=== PATIENT | female | born 1945 | race Caucasian/White ===

== ENCOUNTER 2016-08-01 11:50 | Emergency (ER) | payer MEDICARE, OTHER ==
[~2016-08-01] VITALS: Ht 167.6 cm; Wt 121.1 kg
[~2016-08-01 11:50] MED LIST: AC500T PO; ALPR.25T PO; AMLO5TAB2 PO; ASP325TEC PO; CHLS4PK; CLAR-19 PO; CLON1TAB36; CODE118S2 PO; CPR250T PO; CRESTOR40 MG PO; CRS350T PO; EZET10TA5 PO; FESO4TAB2 PO; FURO-125 PO; FURO40TA4 PO; GUAI120013 PO; HYDR-2890 PO; HYDR-91 PO; HYDR1TAB PO; LEVO500T78 PO; LOPE2CAP29; LOSA100T7 PO; LVF500T; Lotrel; METO2.5T PO; METO25TA2 PO; MTP100TCR; NFNEB10T PO; OLME40TA14 PO; OMEP20CA12 PO; OXYC-465 PO; PARO20TA57 PO; PRAV80TA2 PO; PRD10T PO; PRD20T PO; PROC10TA23; PROP1TAB77; PROVACHOL PO; PRV20T PO; ROSU20TA14 PO; SERT50TA PO; SMV20T PO; SPIR25TA PO; TERA10CA3 PO; TERA5CAP10 PO; TRAZ150T42 PO; TRZ50T PO; TYLENOL #3 PO
[2016-08-01] MEDS ORDERED: ASPIRIN 81 MG CHEW (CHILDREN'S ASA) ONE (12:02)
[2016-08-01 12:25] LABS: BASOPHILS % (AUTO) 0 % (0-10); EOSINOPHILS # (AUTO) 0.2 10^3/uL (0.0-0.3); EOSINOPHILS % (AUTO) 4 % (0-10); LYMPHOCYTES % (AUTO) 15 % (12-44); MEAN CORPUSCULAR HEMOGLOBIN 27 PG (25-34); MEAN CORPUSCULAR HGB CONC 32 G/DL (32-36); MEAN CORPUSCULAR VOLUME 84 FL (80-99); MONOCYTES # (AUTO) 0.6 X 10^3 (0.0-1.0); MONOCYTES % (AUTO) 9 % (0-12); NEUTROPHILS # (AUTO) 4.8 X 10^3 (1.8-7.8); NEUTROPHILS % (AUTO) 72 % (42-75); PLATELET COUNT 219 10^3/uL (130-400); RED BLOOD COUNT 4.62 10^6/uL (4.35-5.85); RED CELL DISTRIBUTION WIDTH 14.5 % (10.0-14.5); WHITE BLOOD COUNT 6.7 10^3/uL (4.3-11.0)
[2016-08-01 12:28] LABS: INR 0.9 (0.8-1.4); PROTHROMBIN TIME PATIENT 11.9 SEC (12.2-14.7)
[2016-08-01] MEDS ORDERED: ASPIRIN 81 MG CHEW (CHILDREN'S ASA) PO ONE (12:30)
--- NOTE | 2016-08-01 12:30 | ED Chest Pain ---
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 The patient is concerned that this is cardiac in origin. Patient has had nausea and dry heaves. She has had no shortness of breath, no palpitations, no radiation of the pressure type epigastric pain. Allergies and Home Medications Allergies Coded Allergies: Iodinated Contrast Media - IV Dye (Unverified Allergy, Mild, NAUSEA, ) Pt states it's the IV dye used in heart tests not CT scans penicillin G (Verified Allergy, Unknown, 04/24/07) RASH Home Medications 1-2 TAB PO Q4H PRN PRN (Reported) Amlodipine Besylate 5 Mg Tablet 5 MG PO HS (Reported) Aspirin 325 Mg Tablet 325 MG PO DAILY (Reported) Carisoprodol 350 Mg Tablet #30 1 TAB PO TID Prescribed by: HARSHAL WILBURN on 04/02/13 1100 Ezetimibe 10 Mg Tablet #30 1 TAB PO DAILY (Reported) Furosemide 20 Mg Tablet #10 20 MG PO DAILY Prescribed by: SHEILA NARAYANAN on 10/13/15 1528 Hydrocodone Bit/Acetaminophen 1 Each Tablet #30 1 EACH PO Q6H Prescribed by: HARSHAL WILBURN on 04/02/13 1100 Hydrocodone Bit/Acetaminophen 1 Each Tablet #20 1 EACH PO Q6H PRN PRN Prescribed by: JOSE POTTER on 04/06/13 075 Losartan Potassium 100 Mg Tablet 100 MG PO DAILY (Reported) Metolazone 2.5 Mg Tablet #10 2.5 MG PO DAILY Prescribed by: SHEILA NARAYANAN on 10/13/15 152 Metoprolol Tartrate 25 Mg Tablet 25 MG PO BID (Reported) Omeprazole 20 Mg Capsule.dr 20 MG PO DAILY (Reported) Paroxetine Hcl 20 Mg Tablet 20 MG PO HS (Reported) Prednisone 20 Mg Tab 6Days 40 MG PO DAILY Prescribed by: JOSE POTTER on 04/06/13 075 Rosuvastatin Calcium 40 Mg Tablet 40 MG PO DAILY (Reported) Sertraline Hcl 50 Mg Tablet 50 MG PO DAILY (Reported) Terazosin Hcl 10 Mg Capsule 5 MG PO DAILY (Reported) Trazodone Hcl 50 Mg Tab 50 MG PO HS (Reported) Review of Systems Constitutional: No chills, No fever, malaise EENTM: No Blurred Vision Respiratory: Denies Cough Cardiovascular: See HPI Chest Pain Gastrointestinal: See HPI Abdominal PainDenies Diarrhea, NauseaDenies Vomiting Genitourinary: Denies Drainage, Denies Frequency Musculoskeletal: No back pain Skin: rash (patient has a chronic intertriginous rash.) Psychiatric/Neurological: No Symptoms Reported Endocrine: No Symptoms Reported Hematologic/Lymphatic: No Symptoms Reported Past Lspgrvx-Rjgzjo-Hkhbjy Hx Patient Social History Alcohol Use: Denies Use Recreational Drug Use: No Smoking Status: Never a Smoker Former Smoker/When Quit: Sep 07, 1990 Recent Foreign Travel: No Contact w/Someone Who Travel: No Recent Infectious Disease Expo: No Recent Hopitalizations: Yes Physical Abuse Screen: No Sexual Abuse: No Immunizations Up To Date Date of Pneumonia Vaccine: Sep 07, 2008 Date of Influenza Vaccine: May 26, 2016 Surgeries HX Surgeries: Yes (HERNIA REP) Surgeries: Eye Surgery, Gallbladder, Orthopedic Respiratory Hx Respiratory Disorders: Yes (sleep apnea no cpap) Respiratory Disorders: Sleep Apnea Cardiovascular Hx Cardiac Disorders: Yes Cardiac Disorders: High Cholesterol, Hypertension Neurological Hx Neurological Disorders: No Reproductive System Hx Reproductive Disorders: No Genitourinary Hx Genitourinary Disorders: Yes (CYSTOCELE) Gastrointestinal Hx Gastrointestinal Disorders: Yes Gastrointestinal Disorders: Gastroesophageal Reflux Musculoskeletal Hx Musculoskeletal Disorders: No Endocrine Hx Endocrine Disorders: No HEENT HX ENT Disorders: No Cancer Hx Cancer: No Psychosocial Hx Psychiatric Problems: Yes Behavioral Health Disorders: Anxiety, Depression Integumentary HX Skin/Integumentary Disorder: No Blood Transfusions Hx Blood Disorders: No Reviewed Nursing Assessment Reviewed/Agree w Nursing PMH: Yes Family Medical History Significant Family History: No Pertinent Family Hx Physical Exam Vital Signs Vital Sign - Last 12Hours 08/01/16 11:52 Temp 98.0 Pulse 59 Resp 20 B/P 178/84 Pulse Ox 95 O2 Delivery Room Air Capillary Refill : Less Than 3 Seconds General Appearance: No Apparent Distress WD/WN HEENT: Normal ENT Inspection Neck: Normal Inspection Respiratory: Lungs Clear Normal Breath Sounds Cardiovascular: Regular Rate, Rhythm No Murmur Gastrointestinal: Normal Bowel SoundsNo Distended, Other (moderate epigastric tenderness.) Extremity: Normal Inspection Normal Range of Motion Neurologic/Psychiatric: Oriented x3 No Motor/Sensory Deficits Normal Mood/ Affect Skin: Normal Color Warm/Dry Progress/Results/Core Measures Results/Orders Lab Results Laboratory Tests Test 08/01/16 12:04 Range/Units Activated Partial Thromboplast Time 26 24-35 SEC Alanine Aminotransferase (ALT/SGPT) 11 0-55 U/L Albumin 3.8 3.2-4.5 G/DL Alkaline Phosphatase 75 40-136 U/L Anion Gap 10 5-14 MMOL/L Aspartate Amino Transf (AST/SGOT) 20 5-34 U/L BUN/Creatinine Ratio 14 Basophils # (Auto) 0.0 0.0-0.1 10^3/uL Basophils (%) (Auto) 0 0-10 % Blood Urea Nitrogen 11 7-18 MG/DL Calcium Level 8.8 8.5-10.1 MG/DL Carbon Dioxide Level 23 21-32 MMOL/L Chloride Level 106 98-107 MMOL/L Creatinine 0.78 0.60-1.30 MG/DL Eosinophils # (Auto) 0.2 0.0-0.3 10^3/uL Eosinophils (%) (Auto) 4 0-10 % Estimat Glomerular Filtration Rate > 60 Glucose Level 103 70-105 MG/DL Hematocrit 39 35-52 % Hemoglobin 12.4 11.5-16.0 G/DL INR Comment 0.9 0.8-1.4 Lymphocytes # (Auto) 1.0 1.0-4.0 X 10^3 Lymphocytes (%) (Auto) 15 12-44 % Magnesium Level 2.0 1.8-2.4 MG/DL Mean Corpuscular Hemoglobin 27 25-34 PG Mean Corpuscular Hemoglobin Concent 32 32-36 G/DL Mean Corpuscular Volume 84 80-99 FL Mean Platelet Volume 11.0 H 7.4-10.4 FL Monocytes # (Auto) 0.6 0.0-1.0 X 10^3 Monocytes (%) (Auto) 9 0-12 % Myoglobin 33.9 10.0-92.0 NG/ML Neutrophils # (Auto) 4.8 1.8-7.8 X 10^3 Neutrophils (%) (Auto) 72 42-75 % Platelet Count 219 130-400 10^3/uL Potassium Level 4.4 3.6-5.0 MMOL/L Prothrombin Time 11.9 L 12.2-14.7 SEC Red Blood Count 4.62 4.35-5.85 10^6/uL Red Cell Distribution Width 14.5 10.0-14.5 % Sodium Level 139 135-145 MMOL/L Total Bilirubin 0.4 0.1-1.0 MG/DL Total Protein 6.6 6.4-8.2 G/DL Troponin I < 0.30 <0.30 NG/ML White Blood Count 6.7 4.3-11.0 10^3/uL My Orders Orders-RICK WILLSON MD Aspirin Chewable Tablet (Baby Aspirin Ch (08/01/16 12:02) Cbc With Automated Diff (08/01/16 12:18) Magnesium (08/01/16 12:18) Chest 1 View, Ap/Pa Only (08/01/16 12:18) Ekg Tracing (08/01/16 12:18) Cardiac Profile 1 (08/01/16 12:18) Comprehensive Metabolic Panel (08/01/16 12:18) Myoglobin Serum (08/01/16 12:18) Protime With Inr (08/01/16 12:18) Partial Thromboplastin Time (08/01/16 12:18) O2 (08/01/16 12:18) Monitor-Rhythm Ecg Trace Only (08/01/16 12:18) Lipid Panel (08/02/16 06:00) Aspirin Chewable Tablet (Baby Aspirin Ch (08/01/16 12:30) Saline Lock/Iv-Start (08/01/16 12:18) Medications Given in ED Current Medications Medications Dose Ordered Sig/Dominique Route Start Time Stop Time Status Last Admin Dose Admin Aspirin 324 mg ONCE ONCE PO 08/01/16 12:30 08/01/16 12:31 DC 08/01/16 12:02 324 MG Vital Signs/I&O Vital Sign - Last 12Hours 08/01/16 08/01/16 11:52 11:52 Temp 98.0 Pulse 59 Resp 20 B/P 178/84 Pulse Ox 95 95 O2 Delivery Room Air Room Air Blood Pressure Mean: 115 Progress Note : Time: 14:08 Progress Note The patient's laboratory evaluation was unremarkable. Her chest x-ray failed to demonstrate evidence of an acute infiltrate. The patient demonstrated a normal sinus rhythm on EKG. No change was noted from the patient's previous electrocardiogram. The patient wanted to go home. She understands that a repeat troponin 4 hours is indicated that it is her desire to leave at this time. 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 She understands that she can return to emergency department at any time. On further history taking the patient states that her pressure type chest pain she felt was really more of a sensation of being queasy. Patient declined any medication for treatment of her symptoms. Departure Impression Impression: Primary Impression: Chest pain Qualified Code: R07.9 - Chest pain, unspecified Disposition: Condition: Against Medical Advice Departure-Patient Inst. Decision time for Depature: 14:10 Referrals: BIBIANA KAPADIA MD (PCP/Family) Primary Care Physician Patient Instructions: Chest Pain (DC) Add. Discharge Instructions: Please follow up here cement or concrete finishing supervisor as soon as possible. Please return to the emergency department if he have any further problems or questions. All discharge instructions reviewed with patient and/or family. Voiced understanding. RICK WILLSON MD Aug 01, 2016 12:30
[2016-08-01 12:37] LABS: ALANINE AMINOTRANSFERASE 11 U/L (0-55); ALBUMIN 3.8 G/DL (3.2-4.5); ANION GAP 10 MMOL/L (5-14); ASPARTATE AMINO TRANSFERASE 20 U/L (5-34); BILIRUBIN,TOTAL 0.4 MG/DL (0.1-1.0); BLOOD UREA NITROGEN 11 MG/DL (7-18); BUN/CREATININE RATIO 14; CALCIUM 8.8 MG/DL (8.5-10.1); CARBON DIOXIDE 23 MMOL/L (21-32); CHLORIDE 106 MMOL/L (98-107); CREATININE SERUM 0.78 MG/DL (0.60-1.30); GFR ESTIMATED > 60; GLUCOSE 103 MG/DL (70-105); POTASSIUM 4.4 MMOL/L (3.6-5.0); SODIUM 139 MMOL/L (135-145); TOTAL PROTEIN 6.6 G/DL (6.4-8.2)
[2016-08-01 12:44] LABS: MYOGLOBIN SERUM 33.9 NG/ML (10.0-92.0)
--- NOTE | 2016-08-01 13:12 | Diagnostic Imaging Report ---
INDICATION: Anterior chest wall pain. FINDINGS: Sternal wires project midline and intact. Heart size within the upper limits of normal unchanged. The hilar and mediastinal contours unchanged. Air trapping and COPD stable. IMPRESSION: Stable chronic findings. Dictated by: Dictated on workstation # [id number]
[2016-08-01 14:20] VITALS: BP 150/70
== END 2016-08-01 14:24 | disposition home or self-care (01) ==
LOC: EDUNIT# 11:50 → ER 11:52
DX: R07.89 Other chest pain (principal); R11.0 Nausea; I10 Essential (primary) hypertension; Z79.82 Long term (current) use of aspirin; Z79.899 Other long term (current) drug therapy
CPT/HCPCS: 36415; 71010; 80053; 83735; 83874; 84484; 85025; 85610; 85730; 93005; 93041

== ENCOUNTER 2016-08-25 08:21 | Day surgery (SDC) | payer MEDICARE, OTHER ==
[~2016-08-25] VITALS: Ht 165.1 cm; Wt 90.0 kg
[2016-08-25] VITALS (9 sets, daily range): BP systolic 139–193; BP diastolic 67–97
--- NOTE | 2016-08-25 08:53 | ED Chest Pain ---
General Stated Complaint: CHEST PRESSURE/SOA Source: patient, RN notes reviewed Exam Limitations: no limitations History of Present Illness Time seen by provider: 08:52 Initial Comments As above. Timing/Duration: intermittent, other (X 2 WEEKS ) Severity/Quality: pressure Location: substernal Radiation: no radiation Activities at Onset: none, rest Prior CP/Workup: cardiac cath, cardiolye scan, echocardiography, stress test, other ((+) CABG) Modifying Factors: improves with other ASA po LINING CLOSER: No NTG SL LINING CLOSER: No Associated Symptoms: shortness of breath Allergies and Home Medications Allergies Coded Allergies: Iodinated Contrast Media - IV Dye (Unverified Allergy, Mild, NAUSEA, ) Pt states it's the IV dye used in heart tests not CT scans penicillin G (Verified Allergy, Unknown, 04/24/07) RASH Home Medications 1-2 TAB PO Q4H PRN PRN (Reported) Amlodipine Besylate 5 Mg Tablet 5 MG PO HS (Reported) Aspirin 325 Mg Tablet 325 MG PO DAILY (Reported) Carisoprodol 350 Mg Tablet #30 1 TAB PO TID Prescribed by: HARSHAL WILBURN on 04/02/13 1100 Ezetimibe 10 Mg Tablet #30 1 TAB PO DAILY (Reported) Furosemide 20 Mg Tablet #10 20 MG PO DAILY Prescribed by: SHEILA NARAYANAN on 10/13/15 1528 Hydrocodone Bit/Acetaminophen 1 Each Tablet #30 1 EACH PO Q6H Prescribed by: HARSHAL WILBURN on 04/02/13 1100 Hydrocodone Bit/Acetaminophen 1 Each Tablet #20 1 EACH PO Q6H PRN PRN Prescribed by: JOSE POTTER on 04/06/13 075 Losartan Potassium 100 Mg Tablet 100 MG PO DAILY (Reported) Metolazone 2.5 Mg Tablet #10 2.5 MG PO DAILY Prescribed by: SHEILA NARAYANAN on 10/13/15 1528 Metoprolol Tartrate 25 Mg Tablet 25 MG PO BID (Reported) Omeprazole 20 Mg Capsule.dr 20 MG PO DAILY (Reported) Paroxetine Hcl 20 Mg Tablet 20 MG PO HS (Reported) Prednisone 20 Mg Tab 6Days 40 MG PO DAILY Prescribed by: JOSE POTTER on 04/06/13 075 Rosuvastatin Calcium 40 Mg Tablet 40 MG PO DAILY (Reported) Sertraline Hcl 50 Mg Tablet 50 MG PO DAILY (Reported) Terazosin Hcl 10 Mg Capsule 5 MG PO DAILY (Reported) Trazodone Hcl 50 Mg Tab 50 MG PO HS (Reported) Review of Systems Constitutional: see HPI Respiratory: See HPI SOA at Rest Cardiovascular: See HPI Chest Pain All Other Systems Reviewed Negative Unless Noted: Yes (Negative excepted noted.) Past Ivrfvuw-Dwlfrj-Zrtosh Hx Patient Social History Former Smoker/When Quit: Sep 07, 1990 Recent Foreign Travel: No Contact w/Someone Who Travel: No Recent Hopitalizations: Yes Immunizations Up To Date Date of Pneumonia Vaccine: Sep 07, 2008 Date of Influenza Vaccine: May 26, 2016 Surgeries HX Surgeries: Yes (HERNIA REP) Surgeries: Eye Surgery, Gallbladder, Orthopedic Respiratory Hx Respiratory Disorders: Yes (sleep apnea no cpap) Respiratory Disorders: Sleep Apnea Cardiovascular Hx Cardiac Disorders: Yes Cardiac Disorders: High Cholesterol, Hypertension Neurological Hx Neurological Disorders: No Reproductive System Hx Reproductive Disorders: No Genitourinary Hx Genitourinary Disorders: Yes (CYSTOCELE) Gastrointestinal Hx Gastrointestinal Disorders: Yes Gastrointestinal Disorders: Gastroesophageal Reflux Musculoskeletal Hx Musculoskeletal Disorders: No Endocrine Hx Endocrine Disorders: No HEENT HX ENT Disorders: No Cancer Hx Cancer: No Psychosocial Hx Psychiatric Problems: Yes Behavioral Health Disorders: Anxiety, Depression Integumentary HX Skin/Integumentary Disorder: No Blood Transfusions Hx Blood Disorders: No Family Medical History Significant Family History: No Pertinent Family Hx Physical Exam Vital Signs Vital Sign - Last 12Hours 08/25/16 08:25 Temp 98.1 Pulse 84 Resp 18 B/P 190/94 Pulse Ox 95 O2 Delivery Room Air Capillary Refill : General Appearance: No Apparent Distress WD/WN Obese Respiratory: Lungs Clear No Respiratory Distress Cardiovascular: Regular Rate, Rhythm Gastrointestinal: Other (obese) Rectal: Deferred Neurologic/Psychiatric: Alert Oriented x3 No Motor/Sensory Deficits Depressed Affect Skin: Warm/Dry Progress/Results/Core Measures Results/Orders Lab Results Laboratory Tests Test 08/25/16 08:50 08/25/16 10:05 Range/Units Alanine Aminotransferase (ALT/SGPT) 10 0-55 U/L Albumin 3.8 3.2-4.5 G/DL Alkaline Phosphatase 78 40-136 U/L Anion Gap 11 5-14 MMOL/L Aspartate Amino Transf (AST/SGOT) 18 5-34 U/L B-Type Natriuretic Peptide 102.4 H <100.0 PG/ML BUN/Creatinine Ratio 19 Basophils # (Auto) 0.0 0.0-0.1 10^3/uL Basophils (%) (Auto) 1 0-10 % Blood Urea Nitrogen 15 7-18 MG/DL Calcium Level 8.5 8.5-10.1 MG/DL Carbon Dioxide Level 24 21-32 MMOL/L Chloride Level 109 H 98-107 MMOL/L Creatinine 0.81 0.60-1.30 MG/DL Eosinophils # (Auto) 0.2 0.0-0.3 10^3/uL Eosinophils (%) (Auto) 4 0-10 % Estimat Glomerular Filtration Rate > 60 Glucose Level 116 H 70-105 MG/DL Hematocrit 39 35-52 % Hemoglobin 12.6 11.5-16.0 G/DL Lipase 32 8-78 U/L Lymphocytes # (Auto) 0.9 L 1.0-4.0 X 10^3 Lymphocytes (%) (Auto) 18 12-44 % Magnesium Level 1.9 1.8-2.4 MG/DL Mean Corpuscular Hemoglobin 27 25-34 PG Mean Corpuscular Hemoglobin Concent 32 32-36 G/DL Mean Corpuscular Volume 84 80-99 FL Mean Platelet Volume 10.8 H 7.4-10.4 FL Monocytes # (Auto) 0.4 0.0-1.0 X 10^3 Monocytes (%) (Auto) 7 0-12 % Neutrophils # (Auto) 3.7 1.8-7.8 X 10^3 Neutrophils (%) (Auto) 70 42-75 % Platelet Count 234 130-400 10^3/uL Potassium Level 4.2 3.6-5.0 MMOL/L Red Blood Count 4.68 4.35-5.85 10^6/uL Red Cell Distribution Width 14.9 H 10.0-14.5 % Sodium Level 144 135-145 MMOL/L Total Bilirubin 0.4 0.1-1.0 MG/DL Total Protein 6.6 6.4-8.2 G/DL Troponin I < 0.30 <0.30 NG/ML White Blood Count 5.3 4.3-11.0 10^3/uL Urine Bacteria NEGATIVE /HPF Urine Bilirubin NEGATIVE NEGATIVE Urine Casts NONE /LPF Urine Clarity CLEAR Urine Color YELLOW Urine Crystals NONE /LPF Urine Culture Indicated NO Urine Glucose (UA) NEGATIVE NEGATIVE Urine Ketones NEGATIVE NEGATIVE Urine Leukocyte Esterase NEGATIVE NEGATIVE Urine Mucus NEGATIVE /LPF Urine Nitrite NEGATIVE NEGATIVE Urine Protein NEGATIVE NEGATIVE Urine RBC NONE /HPF Urine RBC (Auto) NEGATIVE NEGATIVE Urine Specific [place] 1.010 L 1.016-1.022 Urine Squamous Epithelial Cells TNTC H /HPF Urine Urobilinogen NORMAL NORMAL MG/DL Urine WBC NONE /HPF Urine pH 7 5-9 My Orders Orders-RUPERT LAWLER DO Saline Lock/Iv-Start (08/25/16 08:53) Ekg Tracing (08/25/16 08:53) BNP (08/25/16 08:53) Cbc With Automated Diff (08/25/16 08:53) Comprehensive Metabolic Panel (08/25/16 08:53) Lipase (08/25/16 08:53) Magnesium (08/25/16 08:53) Troponin I (08/25/16 08:53) Ua Culture If Indicated (08/25/16 08:53) Chest 1 View, Ap/Pa Only (08/25/16 08:53) Vital Signs/I&O Vital Sign - Last 12Hours 08/25/16 08:25 Temp 98.1 Pulse 84 Resp 18 B/P 190/94 Pulse Ox 95 O2 Delivery Room Air Departure Communication Time/Spoke to Admitting Phy: 11:10 Impression Impression: Primary Impression: Chest pain Additional Impression: S/P CABG (coronary artery bypass graft) Disposition: 09 ADMITTED INPATIENT Condition: Stable Decision to Admit Reason: Admit from ER (General) Decision to Admit/Date: Aug 25, 2016 Time/Decision to Admit Time: 11:10 Departure-Patient Inst. Referrals: BIBIANA KAPADIA MD (PCP/Family) Primary Care Physician RUPERT LAWLER DO Aug 25, 2016 08:53
[2016-08-25 09:03] LABS: BASOPHILS % (AUTO) 1 % (0-10); EOSINOPHILS # (AUTO) 0.2 10^3/uL (0.0-0.3); EOSINOPHILS % (AUTO) 4 % (0-10); LYMPHOCYTES # (AUTO) 0.9 X 10^3 (1.0-4.0); LYMPHOCYTES % (AUTO) 18 % (12-44); MEAN CORPUSCULAR HEMOGLOBIN 27 PG (25-34); MEAN CORPUSCULAR HGB CONC 32 G/DL (32-36); MEAN CORPUSCULAR VOLUME 84 FL (80-99); MEAN PLATELET VOLUME 10.8 FL (7.4-10.4); MONOCYTES # (AUTO) 0.4 X 10^3 (0.0-1.0); MONOCYTES % (AUTO) 7 % (0-12); NEUTROPHILS # (AUTO) 3.7 X 10^3 (1.8-7.8); NEUTROPHILS % (AUTO) 70 % (42-75); PLATELET COUNT 234 10^3/uL (130-400); RED BLOOD COUNT 4.68 10^6/uL (4.35-5.85); RED CELL DISTRIBUTION WIDTH 14.9 % (10.0-14.5); WHITE BLOOD COUNT 5.3 10^3/uL (4.3-11.0)
[2016-08-25 09:21] LABS: ALANINE AMINOTRANSFERASE 10 U/L (0-55); ALBUMIN 3.8 G/DL (3.2-4.5); ANION GAP 11 MMOL/L (5-14); ASPARTATE AMINO TRANSFERASE 18 U/L (5-34); BILIRUBIN,TOTAL 0.4 MG/DL (0.1-1.0); BLOOD UREA NITROGEN 15 MG/DL (7-18); BUN/CREATININE RATIO 19; CALCIUM 8.5 MG/DL (8.5-10.1); CARBON DIOXIDE 24 MMOL/L (21-32); CHLORIDE 109 MMOL/L (98-107); CREATININE SERUM 0.81 MG/DL (0.60-1.30); GFR ESTIMATED > 60; GLUCOSE 116 MG/DL (70-105); LIPASE 32 U/L (8-78); MAGNESIUM 1.9 MG/DL (1.8-2.4); POTASSIUM 4.2 MMOL/L (3.6-5.0); SODIUM 144 MMOL/L (135-145); TOTAL PROTEIN 6.6 G/DL (6.4-8.2)
--- NOTE | 2016-08-25 09:24 | Diagnostic Imaging Report ---
CLINICAL INDICATION: Patient with chest heaviness times approximately 2 weeks with worsening times for the past couple of days. The patient has nausea and cold sweats this morning. EXAM: Portable chest x-ray, upright view. COMPARISON: 08/01/2016. FINDINGS: There is interval minimal discoid atelectasis in the left lung base. There are otherwise increased lung markings in both lung bases seen which may be from chronic lung changes. There is no interval lung infiltrate. There is no pleural effusion or pneumothorax. The pulmonary vasculature and cardiac silhouette are within normal limits. Stable postop changes to the chest. The bones show no significant interval abnormality. IMPRESSION: 1. Interval development of minimal discoid atelectasis in the left lung base. 2. Otherwise, stable chest x-ray exam with no interval lung infiltrate. Dictated by: Dictated on workstation # [id number]
[2016-08-25 09:28] LABS: TROPONIN I < 0.30 NG/ML (<0.30)
[2016-08-25 10:16] LABS: BILIRUBIN,URINE NEGATIVE (NEGATIVE); KETONES,URINE NEGATIVE (NEGATIVE); LEUKOCYTE ESTERASE ,URINE NEGATIVE (NEGATIVE); NITRITE,URINE NEGATIVE (NEGATIVE); PH,URINE 7 (5-9); PROTEIN,URINE NEGATIVE (NEGATIVE); UROBILINOGEN,URINE NORMAL (NORMAL)
[2016-08-25 10:29] LABS: SQUAMOUS EPITHELIAL CELL,UR TNTC /HPF
--- NOTE | 2016-08-25 12:14 | Cardiac Procedure Note-CS/ASA ---
Pre-Procedure Note Pre-Op Procedure Note H&P Reviewed The H&P was reviewed, patient examined and no changes noted. Date H&P Reviewed: Aug 25, 2016 Time H&P Reviewed: 12:14 Conscious Sedation Pre-Proced Time Reviewed: 12:14 ASA Class: 3 Airway Mallampati Classification: (prairie band appropriate class) I. II. III, IV Lungs Heart ASA score ASA 1: a normal healthy patient ASA 2: a patient with a mild systemic disease (mid diabetes, controlled hypertension, obesity x ASA 3: a patient with a severe systemic disease that limits activity (angina , COPD, prior Myocardial infarction) ASA 4: a patient with an incapacitating disease that is a constant threat to life (CHF, renal failure) ASA 5: a moribund patient not expected to survive 24 hrs. (ruptured aneurysm) ASA 6: a declared brain patient whose organs are being harvested. For emergent operations, add the letter E after the classification Grade 3 Sedation Plan: Analgesia, Amnesia, Plan communicated to team members, Discussed options with patient/fam, Discussed risks with patient/fam Note The patient is an appropriate candidate to undergo the planned procedure, sedation, and anesthesia. The patient immediately re-assessed prior to indication. MOHSEN MORRIS MD Aug 25, 2016 12:14
--- NOTE | 2016-08-25 12:14 | Cardiology History & Physical ---
HPI-Cardiology Cardiology Consultation Date of Consultation 08/25/16 Date of Admission Indication: Chest pain HPI 71-year-old lady with history of coronary artery disease, CABG, moderate disease per cardiac catheterization 2012, has been having recurrent episode of chest pain for the last 2 weeks, describing episode of tightness in the retrosternal area associated with shortness of breath and diaphoresis. Came into the emergency room for evaluation, currently feeling better but still very anxious about her recurrent pain, expressing that it is significantly more than her usual state of health. She denied any palpitation, syncope or near syncopal episodes. Has been compliant with her medications PMH-Cardiology Immunizations Up To Date Date of Pneumonia Vaccine: Sep 07, 2008 Date of Influenza Vaccine: May 26, 2016 Surgeries HX Surgeries: Yes (HERNIA REP) Surgeries: Gall Bladder, Hysterectomy, Appendectomy, Bladder Surgery, CABG, Orthopedic Respiratory Hx Respiratory Disorders: Yes (sleep apnea no cpap) Cardiovascular Hx Cardiovascular Disorders: Yes Cardiac Disorders: Heart Attack, Hypertension Neurological Hx Neurological Disorders: No Reproductive System Hx Reproductive Disorders: No MANAGER SERVICES Hx: Hysterectomy Genitourinary Hx Genitourinary Disorders: Yes (CYSTOCELE) Gastrointestinal Hx Gastrointestinal Disorders: Yes Gastrointestinal Disorders: Gastroesophageal Reflux Musculoskeletal Hx Musculoskeletal Disorders: No Endocrine Hx Endocrine Disorders: No HEENT HX ENT Disorders: No Cancer Hx Cancer: No Psychosocial Hx Psychiatric Problems: Yes Behavioral Health Disorders: Anxiety, Depression Integumentary HX Skin/Integumentary Disorder: No Blood Transfusions Hx Blood Disorders: No Other PMHx Other PMHx: Past medical history as discussed below Social History Patient Social History Dip or chew tobacco?: No Recent Foreign Travel: No Contact w/other who traveled: No Recent Infectious Disease Expo: No Family Hx Significant Family History: No Pertinent Family Hx Other Noncontributory to her current condition ROS-Cardiology Review of Systems General: No Chills, No Night Sweats, No Fatigue, No Malaise, No Appetite HEENT: No Head Aches, No Visual Changes, No Eye Pain, No Ear Pain, No Dysphasia , No Sinus Congestion, No Post Nasal Drip, No Sore Throat Pulmonary: DyspneaNo Cough, No Pleuritic Chest Pain Cardiovascular: : Chest PainNo: Edema, Lt Headedness, Orthopnea, Palpitations, Paroxysmal Noc. Dyspnea Gastrointestinal: No: Abdominal Pain, Constipation, Diarrhea, Hematochezia, Melena, Nausea, Vomiting Genitourinary: No Dysuria, No Frequency, No Incontinence, No Hematuria, No Retention Musculoskeletal: No: arm pain, back pain, foot pain, hand pain, leg pain, neck pain, shoulder pain Neurological: No: Change in speech, Confusion, Incoordination, Numbness, Seizures, Weakness Home Medications & Allergies Allergies: Coded Allergies: Iodinated Contrast Media - IV Dye (Unverified Allergy, Mild, NAUSEA, ) Pt states it's the IV dye used in heart tests not CT scans penicillin G (Verified Allergy, Unknown, 04/24/07) RASH Home Medication List Reviewed: Yes Exam-Cardiology Vital Signs Vital Signs Date Time Temp Pulse Resp B/P Pulse Ox O2 Delivery O2 Flow Rate FiO2 08/25/16 08:25 98.1 84 18 190/94 95 Room Air Exam General Appearance: Alert, Oriented X3, Cooperative, No Acute Distress HEENT: Atraumatic, PERRLA Respiratory: Clear to Auscultation, Normal Air Movement Cardiovascular: Regular Rate, Normal S1, Normal S2, No Murmurs Abdominal: Normal Bowel Sounds, Soft, No Tenderness, No Hepatosplenomegaly, No Masses Extremities: No Clubbing, No Cyanosis, No Edema, Normal Pulses, No Tenderness/ Swelling Skin: No Rashes, No Breakdown, No Significant Lesion Neuro: Normal Gait, Normal Speech, Strength at 5/5 X4 Ext, Normal Tone, Sensation Intact Psych/Mental Status: Mental Status NL, Mood NL Results Labs Labs Laboratory Tests 08/25/16 08:50: Alanine Aminotransferase (ALT/SGPT) 10, Albumin 3.8, Alkaline Phosphatase 78, Anion Gap 11, Aspartate Amino Transf (AST/SGOT) 18, B-Type Natriuretic Peptide 102.4H, BUN/Creatinine Ratio 19, Basophils # (Auto) 0.0, Basophils (%) (Auto) 1 , Blood Urea Nitrogen 15, Calcium Level 8.5, Carbon Dioxide Level 24, Chloride Level 109H, Creatinine 0.81, Eosinophils # (Auto) 0.2, Eosinophils (%) (Auto) 4 , Estimat Glomerular Filtration Rate > 60, Glucose Level 116H, Hematocrit 39, Hemoglobin 12.6, Lipase 32, Lymphocytes # (Auto) 0.9L, Lymphocytes (%) (Auto) 18 , Magnesium Level 1.9, Mean Corpuscular Hemoglobin 27, Mean Corpuscular Hemoglobin Concent 32, Mean Corpuscular Volume 84, Mean Platelet Volume 10.8H, Monocytes # (Auto) 0.4, Monocytes (%) (Auto) 7, Neutrophils # (Auto) 3.7, Neutrophils (%) (Auto) 70, Platelet Count 234, Potassium Level 4.2, Red Blood Count 4.68, Red Cell Distribution Width 14.9H, Sodium Level 144, Total Bilirubin 0.4, Total Protein 6.6, Troponin I < 0.30, White Blood Count 5.3 08/25/16 10:05: Urine Bacteria NEGATIVE, Urine Bilirubin NEGATIVE, Urine Casts NONE, Urine Clarity CLEAR, Urine Color YELLOW, Urine Crystals NONE, Urine Culture Indicated NO, Urine Glucose (UA) NEGATIVE, Urine Ketones NEGATIVE, Urine Leukocyte Esterase NEGATIVE, Urine Mucus NEGATIVE, Urine Nitrite NEGATIVE, Urine Protein NEGATIVE, Urine RBC NONE, Urine RBC (Auto) NEGATIVE, Urine Specific [place] 1.010L, Urine Squamous Epithelial Cells TNTCH, Urine Urobilinogen NORMAL, Urine WBC NONE, Urine pH 7 A/P-Cardiology Admission Diagnosis Chest pain nonspecific allergic Coronary artery disease Hypertension Hyperlipidemia Assessment/Plan Chest pain resembling angina, patient have worsening chest pain for the last 2 weeks, accelerating angina, EKG showed mild ST depression in V3, V4, nondiagnostic finding, Cardec enzymes are negative, I discussed with her the management plan, had a baseline stress test done in February 2016, I am planning to proceed with cardiac catheterization possible PTCA Coronary artery disease, history of CABG 4 in 2003 with most recent cardiac catheterization August 2012 demonstrating patent SWEET to LAD, patent vein graft to OM, patent vein graft RCA. Distal part of the right posterior descending artery had moderate to severe disease coronary small artery, not amenable to intervention. Having accelerating angina at this time, planning to proceed with cardiac catheterization Dyspnea on exertion, chronic, continue to monitor Hypertension, I will restart home medication monitor History of sinus bradycardia, currently asymptomatic. Continue to monitor. Hyperlipidemia, I will monitor lipids Small infrarenal abdominal aortic aneurysm, last CT scan was done in March 2013 measuring the aorta at 3.9 cm, ultrasound of the abdominal aorta reported as focal ectasia in the infrarenal abdominal aorta. Done in September 2013, continue to monitor Mild bilateral carotid stenosis, last ultrasound was done in December 2014. Continue to monitor. History of pulmonary hypertension, patent foramen ovale, echocardiogram from November 2013 showed normal LV size and function, EF 60 percent, small PFO with left- to-right shunt, mild MR, mild TR, PA pressure 30 mmHg. continue to monitor Palpitations, maintained on beta delaney, reporting improvement. Continue to monitor Clinical Quality Measures AMI/AHF: ASA po Prior to arrival: MOHSEN Christiansen MD Aug 25, 2016 12:14
[2016-08-25] MEDS ORDERED: NS IV 1000 ML 1,000 ML IV SCH (12:15)
[2016-08-25] MEDS ORDERED: HEParin (CATH LAB) 2,000 ML IV ONE (12:16)
[2016-08-25] MEDS ORDERED: LIDOCAINE 1% INJ 20 ML (XYLOCAINE) VIAL ONE (12:16)
[2016-08-25] MEDS ORDERED: NS IV 1000 ML 1,000 ML ONE (12:16)
[2016-08-25] MEDS ORDERED: CATHETER FLUSH 10 ML SYR IV PRN (12:30)
[2016-08-25] MEDS ORDERED: MIDAZOLAM 5 MG/5 ML (VERSED) VIAL ONE (13:14)
[2016-08-25] MEDS ORDERED: TR1C15 TP (13:15)
[2016-08-25] MEDS ORDERED: TERA5CAP3 PO (13:15)
[2016-08-25] MEDS ORDERED: fentaNYL INJECTION 100 MCG/2 ML AMP ONE (13:15)
[2016-08-25] MEDS ORDERED: ASPI-983 PO (13:22)
[2016-08-25] MEDS ORDERED: CHOL200059 PO (13:22)
[2016-08-25] MEDS ORDERED: METO-272 PO (13:22)
[2016-08-25] MEDS ORDERED: ZOLP10TA PO (13:22)
[2016-08-25] MEDS ORDERED: ATOR80TA64 PO (13:22)
[2016-08-25] MEDS ORDERED: CHLO473M MM (13:25)
[2016-08-25] MEDS ORDERED: diphenhydrAMINE 50 MG/ML INJ (BENADRYL) ONE (13:58)
[2016-08-25] MEDS ORDERED: methylPREDNISolone 125 MG (Solu-MEDROL) VIAL ONE (13:58)
[2016-08-25] MEDS ORDERED: ENALAPRILAT 2.5 MG/2 ML (VASOTEC) VIAL IV ONE (14:33)
[2016-08-25] MEDS ORDERED: meTOprolol 5 MG/5 ML (LOPRESSOR) VIAL ONE (14:33)
[2016-08-25] MEDS: NS IV 1000 ML 1,000 ML IV SCH ×2 (15:05→22:50)
[2016-08-25] MEDS ORDERED: ISOSORBIDE MONONITRATE 30 MG (IMDUR) TAB PO NR (15:15)
[2016-08-25] MEDS ORDERED: PATIENT MAY USE OWN MEDS, ALL PO SCH (15:15)
[2016-08-25] MEDS ORDERED: NITROGLYCERIN SUBLINGUAL 0.4 MG TAB (NITROSTAT) SL PRN (15:15)
--- NOTE | 2016-08-25 16:58 | Consultation ---
History of Present Illness History of Present Illness Patient Consulted On(rosina/time) 08/25/16 16:52 Date of Admission Reason for Visit: Chest pain History of Present Illness Consult requested by Dr. Tinoco for chest pain/egd 71 year old female that for 2 weeks has been having substernal chest pressure. Intermittent pain. No radiation. Nothing seems to make better. Nothing makes worse. Patient also having some shortness of breath with activity. Reports history of reflux. On medication for her reflux which seems to make okay but not sure if she's had a previous scope. Patient with no other complaints at this time. Denies fever sweats chills shortness of breath or chest pain at this time. Allergies and Home Medications Allergies Coded Allergies: Iodinated Contrast Media - Oral and (Unverified Allergy, Mild, NAUSEA, 21/02) Pt states it's the IV dye used in heart tests not CT scans penicillin G (Verified Allergy, Unknown, 04/24/07) RASH Home Medications Aspirin 81 Mg Tablet.dr 81 MG PO DAILY (Reported) Atorvastatin Calcium 80 Mg Tablet 40 MG PO DAILY (Reported) TAKES 1/2 (80MG) TABLET Chlorhexidine Gluconate 473 Ml Mouthwash 15 ML MM BID (Reported) SWISH AND SPIT Cholecalciferol (Vitamin D3) 2,000 Unit Tablet 2,000 UNIT PO DAILY (Reported) Ezetimibe 10 Mg Tablet 1 TAB PO DAILY (Reported) Metoprolol Succinate 50 Mg Tab.er.24h 50 MG PO DAILY (Reported) Omeprazole 20 Mg Capsule.dr 20 MG PO DAILY (Reported) Paroxetine Hcl 20 Mg Tablet 20 MG PO DAILY (Reported) Terazosin HCl 5 Mg Capsule 5 MG PO DAILY (Reported) Trazodone Hcl 50 Mg Tab 50 MG PO DAILY (Reported) Triamcinolone Acet 15 Gm Cr TP BID (Reported) 0.1% Zolpidem Tartrate 10 Mg Tablet 10 MG PO HS (Reported) Past Hljdddn-Hzlxrq-Gxrtzb Hx Patient Social History Alcohol Use: Denies Use Recreational Drug Use: No Smoking Status: Former Smoker Former Smoker/When Quit: Sep 07, 1990 Type Used: Cigarettes Recent Foreign Travel: No Contact w/Someone Who Travel: No Recent Infectious Disease Expo: No Recent Hopitalizations: No Physical Abuse Screen: No Sexual Abuse: No Immunizations Up To Date Date of Pneumonia Vaccine: Sep 07, 2008 Date of Influenza Vaccine: May 26, 2016 Seasonal Allergies Seasonal Allergies: No Surgeries HX Surgeries: Yes (HERNIA REP) Surgeries: Eye Surgery, Gallbladder, Orthopedic Respiratory Hx Respiratory Disorders: Yes (sleep apnea no cpap) Respiratory Disorders: Sleep Apnea Cardiovascular Hx Cardiac Disorders: Yes Cardiac Disorders: High Cholesterol, Hypertension Neurological Hx Neurological Disorders: No Reproductive System Hx Reproductive Disorders: No Sexually Transmitted Disease: No HIV/AIDS: No Female Reproductive Disorders: Denies Genitourinary Hx Genitourinary Disorders: Yes (CYSTOCELE) Gastrointestinal Hx Gastrointestinal Disorders: Yes Gastrointestinal Disorders: Gastroesophageal Reflux Musculoskeletal Hx Musculoskeletal Disorders: No Musculoskeletal Disorders: Arthritis Endocrine Hx Endocrine Disorders: No HEENT HX ENT Disorders: No HEENT Disorders: Cataract Hearing Impairment: Hard of Hearing Cancer Hx Cancer: No Psychosocial Hx Psychiatric Problems: Yes Behavioral Health Disorders: Anxiety, Depression Integumentary HX Skin/Integumentary Disorder: No Blood Transfusions Hx Blood Disorders: No Adverse Reaction to a Blood Tr: No Family Medical History Significant Family History: No Pertinent Family Hx Family Medial History: Arthritis Cardiovascular disease Hypertension Review of Systems-General Constitutional: no symptoms reported EENTM: no symptoms reported Respiratory: see HPI Cardiovascular: see HPI Gastrointestinal: no symptoms reported Genitourinary: no symptoms reported Musculoskeletal: no symptoms reported Skin: no symptoms reported Psychiatric/Neurological: No Symptoms Reported Physical Exam-General Problems Physical Exam Vital Signs Vital Sign - Last 12Hours 08/25/16 08:25 Temp 98.1 Pulse 84 Resp 18 B/P 190/94 Pulse Ox 95 O2 Delivery Room Air Capillary Refill : Less Than 3 Seconds General Appearance: no apparent distress HEENT: PERRL/EOMI Neck: supple Respiratory: chest non-tender Cardiovascular: regular rate, rhythm Gastrointestinal: non tender soft other (rash upper folds of abdomen and groins) Rectal: deferred Back: no CVA tenderness Extremities: non-tender Neurologic/Psychiatric: alert oriented x 3 Skin: warm/dry Lymphatic: no adenopathy Data Review Labs Laboratory Tests 08/25/16 08:50: Activated Partial Thromboplast Time 24, Alanine Aminotransferase (ALT/SGPT) 10, Albumin 3.8, Alkaline Phosphatase 78, Anion Gap 11, Aspartate Amino Transf (AST/ SGOT) 18, B-Type Natriuretic Peptide 102.4H, BUN/Creatinine Ratio 19, Basophils # (Auto) 0.0, Basophils (%) (Auto) 1, Blood Urea Nitrogen 15, Calcium Level 8.5 , Carbon Dioxide Level 24, Chloride Level 109H, Creatinine 0.81, Eosinophils # ( Auto) 0.2, Eosinophils (%) (Auto) 4, Estimat Glomerular Filtration Rate > 60, Glucose Level 116H, Hematocrit 39, Hemoglobin 12.6, INR Comment 1.0, Lipase 32, Lymphocytes # (Auto) 0.9L, Lymphocytes (%) (Auto) 18, Magnesium Level 1.9, Mean Corpuscular Hemoglobin 27, Mean Corpuscular Hemoglobin Concent 32, Mean Corpuscular Volume 84, Mean Platelet Volume 10.8H, Monocytes # (Auto) 0.4, Monocytes (%) (Auto) 7, Neutrophils # (Auto) 3.7, Neutrophils (%) (Auto) 70, Platelet Count 234, Potassium Level 4.2, Prothrombin Time 13.0, Red Blood Count 4.68, Red Cell Distribution Width 14.9H, Sodium Level 144, Total Bilirubin 0.4, Total Protein 6.6, Troponin I < 0.30, White Blood Count 5.3 08/25/16 10:05: Urine Bacteria NEGATIVE, Urine Bilirubin NEGATIVE, Urine Casts NONE, Urine Clarity CLEAR, Urine Color YELLOW, Urine Crystals NONE, Urine Culture Indicated NO, Urine Glucose (UA) NEGATIVE, Urine Ketones NEGATIVE, Urine Leukocyte Esterase NEGATIVE, Urine Mucus NEGATIVE, Urine Nitrite NEGATIVE, Urine Protein NEGATIVE, Urine RBC NONE, Urine RBC (Auto) NEGATIVE, Urine Specific [place] 1.010L, Urine Squamous Epithelial Cells TNTCH, Urine Urobilinogen NORMAL, Urine WBC NONE, Urine pH 7 Assessment/Plan Assessment/Plan Assessment/Plan Chest pain, GERD Discussed with Dr. Tinoco. He wishes for EGD to be performed. Discussed with patient risks and benefits of EGD and wishes to proceed. NPO after midnight Consent. Clinical Quality Measures AMI/AHF: ASA po Prior to arrival: No DVT/VTE Risk/Contraindication: Risk Factor Score Per Nursin RFS Level Per Nursing on Admit: 2=Moderate LINDSAY PREEZ DO Aug 25, 2016 16:58
[2016-08-25] MEDS ORDERED: diphenhydrAMINE 50 MG/ML INJ (BENADRYL) IVP ONE (20:15)
[2016-08-25] MEDS ORDERED: APAP 300 MG/CODEINE 30 MG (TYLENOL #3) TAB PO PRN (20:15)
[2016-08-25] MEDS: BETAMETHASONE DIPRO (AUGMENTED) 0.05% CREAM 15 GM TOP SCH (20:42)
[2016-08-25] MEDS: NYSTATIN CREAM (MYCOSTATIN) 30 GM TUBE TP SCH (20:43)
[2016-08-25] MEDS ORDERED: ATORVASTATIN 40 MG (LIPITOR) TABLET PO SCH (21:00)
[2016-08-25] MEDS ORDERED: ZOLPIDEM 5 MG (AMBIEN) TAB PO SCH (21:00)
[2016-08-26 04:00] VITALS: BP 166/74
[2016-08-26 06:28] LABS: RED BLOOD COUNT 4.34 10^6/uL (4.35-5.85); RED CELL DISTRIBUTION WIDTH 14.9 % (10.0-14.5)
[2016-08-26] MEDS ORDERED: ONDANSETRON 4 MG/2 ML (SDV) Z0FRAN IV ONE (06:30)
[2016-08-26 06:51] LABS: ANION GAP 10 MMOL/L (5-14); BLOOD UREA NITROGEN 11 MG/DL (7-18); BUN/CREATININE RATIO 14; CALCIUM 8.5 MG/DL (8.5-10.1); CARBON DIOXIDE 22 MMOL/L (21-32); CHLORIDE 108 MMOL/L (98-107); GFR ESTIMATED > 60; GLUCOSE 134 MG/DL (70-105); SODIUM 140 MMOL/L (135-145)
[2016-08-26] MEDS ORDERED: NS IV 1000 ML 1,000 ML ONE (07:31)
[2016-08-26] MEDS ORDERED: proPOfol 200 MG/20 ML (DIPRIVAN) VIAL IV ONE (07:34)
[2016-08-26] MEDS ORDERED: MIDAZOLAM 2 MG/2 ML (VERSED) VIAL ONE (07:34)
--- NOTE | 2016-08-26 07:48 | Progress Note ---
Subjective Subjective/Events-last exam Some nausea this morning. Now better after getting Zofran. No new complaints. NPO at this time for EGD. Objective Exam Vital Signs Date Time Temp Pulse Resp B/P Pulse Ox O2 Delivery O2 Flow Rate FiO2 08/26/16 04:00 98.7 77 20 166/74 98 Room Air 08/26/16 04:00 Room Air 08/26/16 01:00 57 08/26/16 00:00 Room Air 08/25/16 23:07 97.8 65 18 150/79 95 Room Air 08/25/16 22:00 97.0 66 18 143/67 95 Room Air 08/25/16 21:07 98.1 64 18 139/68 96 Room Air 08/25/16 21:00 99 Room Air 08/25/16 20:00 99 Room Air 08/25/16 19:53 97.1 67 16 143/67 98 Room Air 08/25/16 19:00 60 08/25/16 18:43 97.9 65 16 177/78 99 Room Air 08/25/16 17:57 98.6 69 16 172/79 98 Room Air 08/25/16 17:10 100.0 71 16 152/82 96 Room Air 08/25/16 16:46 99.0 75 16 182/80 95 Room Air 08/25/16 16:00 95 Room Air 08/25/16 15:18 55 08/25/16 14:28 97 Room Air 08/25/16 13:00 77 08/25/16 13:00 97 Room Air 08/25/16 12:53 98.4 85 16 193/97 97 Room Air 08/25/16 12:17 98.1 76 14 95 08/25/16 08:25 98.1 84 18 190/94 95 Room Air I & O 08/26/16 07:00 Intake Total 460 ml Output Total 925 ml Balance -465 ml Capillary Refill : Less Than 3 Seconds General Appearance: No Apparent Distress WD/WN Obese Respiratory: Lungs Clear No Respiratory Distress Cardiovascular: Regular Rate, Rhythm Gastrointestinal: non tender soft other (rash upper folds of abdomen and groins) Neurologic/Psychiatric: Alert Oriented x3 No Motor/Sensory Deficits Depressed Affect Skin: Warm/Dry Results Lab Laboratory Tests 08/25/16 08:50: Activated Partial Thromboplast Time 24, Alanine Aminotransferase (ALT/SGPT) 10, Albumin 3.8, Alkaline Phosphatase 78, Anion Gap 11, Aspartate Amino Transf (AST/ SGOT) 18, B-Type Natriuretic Peptide 102.4H, BUN/Creatinine Ratio 19, Basophils # (Auto) 0.0, Basophils (%) (Auto) 1, Blood Urea Nitrogen 15, Calcium Level 8.5 , Carbon Dioxide Level 24, Chloride Level 109H, Creatinine 0.81, Eosinophils # ( Auto) 0.2, Eosinophils (%) (Auto) 4, Estimat Glomerular Filtration Rate > 60, Glucose Level 116H, Hematocrit 39, Hemoglobin 12.6, INR Comment 1.0, Lipase 32, Lymphocytes # (Auto) 0.9L, Lymphocytes (%) (Auto) 18, Magnesium Level 1.9, Mean Corpuscular Hemoglobin 27, Mean Corpuscular Hemoglobin Concent 32, Mean Corpuscular Volume 84, Mean Platelet Volume 10.8H, Monocytes # (Auto) 0.4, Monocytes (%) (Auto) 7, Neutrophils # (Auto) 3.7, Neutrophils (%) (Auto) 70, Platelet Count 234, Potassium Level 4.2, Prothrombin Time 13.0, Red Blood Count 4.68, Red Cell Distribution Width 14.9H, Sodium Level 144, Total Bilirubin 0.4, Total Protein 6.6, Troponin I < 0.30, White Blood Count 5.3 08/25/16 10:05: Urine Bacteria NEGATIVE, Urine Bilirubin NEGATIVE, Urine Casts NONE, Urine Clarity CLEAR, Urine Color YELLOW, Urine Crystals NONE, Urine Culture Indicated NO, Urine Glucose (UA) NEGATIVE, Urine Ketones NEGATIVE, Urine Leukocyte Esterase NEGATIVE, Urine Mucus NEGATIVE, Urine Nitrite NEGATIVE, Urine Protein NEGATIVE, Urine RBC NONE, Urine RBC (Auto) NEGATIVE, Urine Specific [place] 1.010L, Urine Squamous Epithelial Cells TNTCH, Urine Urobilinogen NORMAL, Urine WBC NONE, Urine pH 7 08/26/16 05:57: Anion Gap 10, BUN/Creatinine Ratio 14, Blood Urea Nitrogen 11, Calcium Level 8.5 , Carbon Dioxide Level 22, Chloride Level 108H, Creatinine 0.80, Estimat Glomerular Filtration Rate > 60, Glucose Level 134H, Hematocrit 36, Hemoglobin 11.7, Mean Corpuscular Hemoglobin 27, Mean Corpuscular Hemoglobin Concent 32, Mean Corpuscular Volume 83, Mean Platelet Volume 11.0H, Platelet Count 222, Potassium Level 4.0, Red Blood Count 4.34L, Red Cell Distribution Width 14.9H, Sodium Level 140, White Blood Count 5.0 Assessment/Plan Assessment/Plan Assessment/Plan Chest pain, GERD NPO Plan EGD this morning Clinical Quality Measures AMI/AHF: ASA po Prior to arrival: No DVT/VTE Risk/Contraindication: Risk Factor Score Per Nursin RFS Level Per Nursing on Admit: 2=Moderate LINDSAY PEREZ DO Aug 26, 2016 7:48 am
[2016-08-26 08:15] VITALS: BP 136/63
--- NOTE | 2016-08-26 08:24 | Progress Note-Post Operative ---
Post-Operative Progess Note Pre-Operative Diagnosis chest pain, gerd Post-Operative Diagnosis gastritis, esophageal diverticulum at approximately 30 cm Post-Op Procedure Note Date of Procedure: Aug 26, 2016 Name of Procedure: egd c biopsies antrum distal esoph Procedure Note/Findings see note Anesthesia Type per planer setter Estimated blood loss (mL): none Specimen(s) collected antrum, distal esophagus LINDSYA PEREZ DO Aug 26, 2016 8:24 am
--- NOTE | 2016-08-26 08:52 | Cardiology Progress Note ---
Subjective Subjective/Events-last exam Patient in bed. Back up to room after undergoing EGD this morning. Complains of chest pressure. Denies any dyspnea or dizziness. Review of Systems General: No Night Sweats, No Fatigue, No Malaise HEENT: No Visual Changes, No Dysphasia, No Sore Throat Pulmonary: No Dyspnea, No Cough Cardiovascular: : Chest PainNo: Edema, Palpitations, Paroxysmal Noc. Dyspnea Gastrointestinal: No: Constipation, Diarrhea, Nausea, Vomiting Genitourinary: No Dysuria, No Frequency Musculoskeletal: No: back pain, neck pain Neurological: No: Change in speech, Confusion, Numbness, Weakness Objective-Cardiology Exam Last Set of Vital Signs Vital Signs 08/26/16 08/26/16 08:15 08:45 Temp 98.4 Pulse 76 Resp 12 B/P 136/63 Pulse Ox 96 O2 Delivery Room Air Capillary Refill : Less Than 3 Seconds I&O Bad tableGeneral: Alert, Oriented X3, Cooperative, No Acute Distress HEENT: Atraumatic, PERRLA Lungs: Clear to Auscultation, Normal Air Movement Heart: Regular Rate, Normal S1, Normal S2, No Murmurs Abdomen: Normal Bowel Sounds, Soft, No Tenderness, No Hepatosplenomegaly, No Masses Extremities: No Clubbing, No Cyanosis, No Edema, Normal Pulses, No Tenderness/ Swelling Skin: No Rashes, No Breakdown, No Significant Lesion Neuro: Normal Gait, Normal Speech, Strength at 5/5 X4 Ext, Normal Tone, Sensation Intact Psych/Mental Status: Mental Status NL, Mood NL Results Lab Laboratory Tests 08/26/16 05:57 A/P-Cardiology Admission Diagnosis Chest pain nonspecific allergic Coronary artery disease Hypertension Hyperlipidemia Assessment/Plan Chest pain resembling angina, patient have worsening chest pain for the last 2 weeks, accelerating angina, EKG showed mild ST depression in V3, V4, nondiagnostic finding. Cardiac catheterization done yesterday revealed patent vein grafts with small vessel disease. Underwent EGD this morning, revealing gastritis and esophageal diverticulum. Started on Protonix and Carafate. Coronary artery disease, history of CABG 4 in 2003 with most recent cardiac catheterization August 2012 demonstrating patent SWEET to LAD, patent vein graft to OM, patent vein graft RCA. Distal part of the right posterior descending artery had moderate to severe disease coronary small artery, not amenable to intervention. Cardiac catheterization done 08/25/2016 revealed patent bypass grafts with small vessel dz. Continue current medications. Dyspnea on exertion, chronic, continue to monitor Hypertension, controlled. Continue to monitor BP/HR History of sinus bradycardia, currently asymptomatic. Continue to monitor. Hyperlipidemia, I will monitor lipids Small infrarenal abdominal aortic aneurysm, last CT scan was done in March 2013 measuring the aorta at 3.9 cm, ultrasound of the abdominal aorta reported as focal ectasia in the infrarenal abdominal aorta. Done in September 2013, continue to monitor Mild bilateral carotid stenosis, last ultrasound was done in December 2014. Continue to monitor. History of pulmonary hypertension, patent foramen ovale, echocardiogram from November 2013 showed normal LV size and function, EF 60 percent, small PFO with left- to-right shunt, mild MR, mild TR, PA pressure 30 mmHg. continue to monitor Palpitations, maintained on beta delaney, reporting improvement. Continue to monitor Clinical Quality Measures AMI/AHF: ASA po Prior to arrival: No DVT/VTE Risk/Contraindication: Risk Factor Score Per Nursin RFS Level Per Nursing on Admit: 2=Moderate MARU HOANG Aug 26, 2016 08:52 MARU HOANG Aug 26, 2016 08:52
[2016-08-26] MEDS ORDERED: eZETimibe 10 MG (ZETIA) TABLET PO SCH (09:00)
[2016-08-26] MEDS ORDERED: ISOSORBIDE MONONITRATE 30 MG (IMDUR) TAB PO SCH (09:00)
[2016-08-26] MEDS ORDERED: traZODone 50 MG (DESYREL) TAB PO SCH (09:00)
[2016-08-26] MEDS ORDERED: ASPIRIN E.C. 81 MG (ECOTRIN) TAB PO SCH (09:00)
[2016-08-26] MEDS ORDERED: PANTOPRAZOLE 40 MG (PROTONIX) TAB PO SCH (09:00)
[2016-08-26] MEDS ORDERED: PARoxetine 20 MG (PAXIL) TAB PO SCH (09:00)
[2016-08-26] MEDS ORDERED: PANTOPRAZOLE 20 MG TABLET (PROTONIX) PO SCH (09:00)
[2016-08-26] MEDS ORDERED: meTOproloL SUCCINATE 50 MG (TOPROL XL) TAB PO SCH (09:00)
[2016-08-26] MEDS ORDERED: TERAZOSIN 5 MG (HYTRIN) CAPSULE PO SCH (09:00)
[2016-08-26] MEDS ORDERED: SUCR1TAB PO (09:04)
[2016-08-26] MEDS ORDERED: ISOS30TA3 PO (09:04)
[2016-08-26] MEDS ORDERED: NYST15CR TP (09:04)
[2016-08-26] MEDS ORDERED: PANT40TA3 PO (09:04)
--- NOTE | 2016-08-26 09:07 | Cardiology Progress Note ---
Subjective Subjective/Events-last exam patient is laying down in bed, feeling better, had EGD done today Review of Systems General: No Chills, No Night Sweats, No Fatigue, No Malaise, No Appetite, No Other HEENT: No Head Aches, No Visual Changes, No Eye Pain, No Ear Pain, No Dysphasia , No Sinus Congestion, No Post Nasal Drip, No Sore Throat, No Other Pulmonary: No Dyspnea, No Cough, No Pleuritic Chest Pain, No Other Cardiovascular: : Chest PainNo: Edema, Lt Headedness, Orthopnea, Other, Palpitations, Paroxysmal Noc. Dyspnea Objective-Cardiology Exam Last Set of Vital Signs Vital Signs 08/26/16 08/26/16 08:15 08:45 Temp 98.4 Pulse 76 Resp 12 B/P 136/63 Pulse Ox 96 O2 Delivery Room Air Capillary Refill : Less Than 3 Seconds I&O Bad tableGeneral: Alert, Oriented X3, Cooperative, No Acute Distress HEENT: Atraumatic, PERRLA Lungs: Clear to Auscultation, Normal Air Movement Heart: Regular Rate, Normal S1, Normal S2, No Murmurs Abdomen: Normal Bowel Sounds, Soft, No Tenderness, No Hepatosplenomegaly, No Masses Extremities: No Clubbing, No Cyanosis, No Edema, Normal Pulses, No Tenderness/ Swelling Skin: No Rashes, No Breakdown, No Significant Lesion Neuro: Normal Gait, Normal Speech, Strength at 5/5 X4 Ext, Normal Tone, Sensation Intact Psych/Mental Status: Mental Status NL, Mood NL Results Lab Laboratory Tests 08/26/16 05:57 A/P-Cardiology Admission Diagnosis Chest pain nonspecific allergic Coronary artery disease Hypertension Hyperlipidemia Assessment/Plan Chest pain, nonspecific etiology. Cardiac catheterization done yesterday revealed patent vein grafts with small vessel disease. Underwent EGD this morning, revealing gastritis and esophageal diverticulum. Started on Imdur, Protonix and Carafate. Coronary artery disease, history of CABG 4 in 2003 with most recent cardiac catheterization August 2012 demonstrating patent SWEET to LAD, patent vein graft to OM, patent vein graft RCA. Distal part of the right posterior descending artery had moderate to severe disease coronary small artery, not amenable to intervention. Cardiac catheterization done 08/25/2016 revealed patent bypass grafts with small vessel dz. Continue current medications. Dyspnea on exertion, chronic, continue to monitor Hypertension, controlled. Continue to monitor BP/HR History of sinus bradycardia, currently asymptomatic. Continue to monitor. Hyperlipidemia, I will monitor lipids Small infrarenal abdominal aortic aneurysm, last CT scan was done in March 2013 measuring the aorta at 3.9 cm, ultrasound of the abdominal aorta reported as focal ectasia in the infrarenal abdominal aorta. Done in September 2013, continue to monitor Mild bilateral carotid stenosis, last ultrasound was done in December 2014. Continue to monitor. History of pulmonary hypertension, patent foramen ovale, echocardiogram from November 2013 showed normal LV size and function, EF 60 percent, small PFO with left- to-right shunt, mild MR, mild TR, PA pressure 30 mmHg. continue to monitor Palpitations, maintained on beta delaney, reporting improvement. Continue to monitor Clinical Quality Measures AMI/AHF: ASA po Prior to arrival: No DVT/VTE Risk/Contraindication: Risk Factor Score Per Nursin RFS Level Per Nursing on Admit: 2=Moderate MOHSEN MORRIS MD Aug 26, 2016 09:07
--- NOTE | 2016-08-26 09:08 | Clinic Account Progress/Dx ---
Clinic Account Progress/Dx DIAGNOSIS: Diagnosis Chest pain nonspecific urology Coronary artery disease Esophageal diverticulum Hypertension Hyperlipidemia MOHSEN MORRIS MD Aug 26, 2016 09:08
[2016-08-26] MEDS ORDERED: NS IV 1000 ML 1,000 ML IV ONE (09:15)
[2016-08-26] MEDS ORDERED: HURRICAINE EXT TUBE (BENZOCAINE) XX ONE (09:15)
[2016-08-26] MEDS: BETAMETHASONE DIPRO (AUGMENTED) 0.05% CREAM 15 GM TOP SCH (09:30)
[2016-08-26] MEDS: NYSTATIN CREAM (MYCOSTATIN) 30 GM TUBE TP SCH (09:30)
[2016-08-26] MEDS ORDERED: SUCRALFATE 1 GM (CARAFATE) TAB PO SCH (11:00)
--- NOTE | 2016-08-26 13:10 | CARDIAC CATHETERIZATION ---
PROCEDURE PHYSICIAN: MOHSEN MORRIS DATE OF PROCEDURE: 08/25/2016 REFERRING PHYSICIAN: Dr. Spring. BRIEF HISTORY: Mrs. Soares is a 71-year-old lady with history of CABG x 3, admitted with acute chest pain. She was scheduled for cardiac catheterization. PROCEDURE NOTE: After explaining the procedure to the patient, all pros and cons were explained. All questions were answered. The patient signed a consent, then she was placed on the cardiac catheterization laboratory. The right groin was prepped in a sterile fashion. Local anesthesia applied to the right groin. 6-Armenian sheath was placed in the right femoral artery. The patient was given 5 mg of IV Lopressor and 5 mg of IV enalapril due to severe hypertension. Combination of right and left Eva catheter were used to access the right and left coronary system. Multiple views were obtained. Eva right catheter was used to access the vein graft and the SWEET. Angiogram was done. Then pigtail catheter was advanced to the left ventricular cavity. Left ventriculogram was done. Pullback LV to aorta was done. The aortic arch angiogram was done. Abdominal aortogram was done. At the end of the procedure, sheath was removed. Mynx device deployed. Hemostasis achieved. FINDINGS: HEMODYNAMICS: LV pressure 179/20, end-diastolic pressure of 20, aortic pressure 175/75, mean of 117. ANATOMY: 1. Left main coronary artery is bifurcating to left anterior descending and left circumflex artery with no obstructive disease in the left main coronary artery. 2. Left anterior descending artery is moderate in size, occluded proximally. The SWEET to the LAD is patent. 3. Left circumflex artery is moderate in size, occluded at the midportion with patent vein graft to the circumflex system. 4. Right coronary artery is totally occluded proximally with patent vein graft to the right coronary system. 5. Vein graft angiogram: The vein graft to the right coronary artery is patent, small vessel disease distally. 6. Vein graft to the obtuse marginal branch is patent with good flow distally, small vessel disease distally. 7. SWEET angiogram: The SWEET to the LAD is patent with small vessel disease distally. 8. Left ventriculogram was done in the right anterior oblique position. The left ventricle is normal in size with normal contractility. Estimated ejection fraction 60%. 9. Aortic arch angiogram showed atherosclerotic plaques in the arch. No dissection or aneurysm. Origin of the subclavian artery, carotid artery and innominate artery appeared normal with atherosclerotic plaque. No dissection. No obstructive disease. 10. Abdominal aortogram evaluation showed hypertensive changes in the abdominal aorta. Superior and inferior mesenteric artery are patent. Renal arteries are patent. CONCLUSION: 1. Severe [place] coronary artery disease with patent bypass grafts including SWEET to the LAD, vein graft to the obtuse marginal and vein graft to the right coronary artery with small vessel disease distally. 2. Hypertensive changes in the left ventricle with normal systolic function. Estimated ejection fraction 60%. 3. Hypertension changes in the aortic arch and abdominal aorta. No dissection or aneurysm, patent renal arteries. DISCUSSION AND RECOMMENDATION: I will continue maximizing medical therapy. In addition, the patient will need evaluation with EGD for possible other causes of chest pain. Job ID: [id number] Dictated Date: 08/25/2016 15:14:30 Campus Supervisor Date: 08/26/2016 13:02:41 / celina
--- NOTE | 2016-08-26 14:45 | OPERATIVE REPORT ---
PROCEDURE PHYSICIAN: LINDSAY PEREZ DATE OF PROCEDURE: 08/26/2016 PREOPERATIVE DIAGNOSIS: 1. Chest pain. 2. GERD. POSTOPERATIVE DIAGNOSES: 1. Gastritis. 2. Esophageal diverticulum at approximately 30 cm. PROCEDURE: EGD with biopsy of the antrum and distal esophagus. SURGEON: Flora. ANESTHESIA: Per SUPER[employer]. ESTIMATED BLOOD LOSS: None. COMPLICATIONS: None. INDICATIONS: The patient is a 71-year-old female who has been having a chest pressure. We discussed the risks and benefits of EGD and wished to proceed with procedure. Consent was signed on chart. PROCEDURE: The patient was taken to the endoscopy suite, placed in the left lateral recumbent position. Timeout was performed. The scope was inserted in the mouth, down the esophagus, stomach and into the duodenum without difficulty. There were no polyps, masses, ulcerations within the duodenum. The scope was slowly retracted back to the stomach where it was further insufflated. A significant amount of erythematous change is present more towards the antral portion of the stomach. Biopsies were obtained. It is more consistent with gastritis. The scope was also retroflexed noting a very small hiatal hernia. There was no other pathology noted. The scope was returned to its normal position and slowly withdrawn back into the distal esophagus where biopsy of the distal esophagus was obtained. The scope was slowly retracted. At approximately 30 cm there was a wide-based diverticulum present. The scope was then continued be slowly retracted back. There was no other pathology noted. The scope was slowly retracted until completely removed. The patient tolerated the procedure well without any complications. She was taken to the recovery room in stable condition. RECOMMENDATIONS: The patient will be placed on Protonix 40 mg twice a day and Carafate 1 gram before meals and at bedtime. Await biopsy results for further recommendations and see how symptoms are doing. Job ID: [id number] Dictated Date: 08/26/2016 08:27:05 Grab Jack Man Date: 08/26/2016 14:39:50 / celina
== END 2016-08-26 11:30 | disposition home or self-care (01) ==
LOC: EDUNIT# 08:21 → ER 08:23 → 4TH 11:46 → UNDOADMOB 11:46 → CATH 11:46 → 4TH 11:46 → CATH 08-26 11:30 → UNDODISOB 08-26 11:30
PROVIDERS: ATTEND Internal Medicine Cardiovascular Disease
DX: R07.89 Other chest pain (principal); I25.10 Atherosclerotic heart disease of native coronary artery without angina pectoris; K22.5 Diverticulum of esophagus, acquired; K29.70 Gastritis, unspecified, without bleeding; E78.5 Hyperlipidemia, unspecified; I10 Essential (primary) hypertension; Q21.1 Atrial septal defect; I27.2 Other secondary pulmonary hypertension; I71.4 Abdominal aortic aneurysm, without rupture; Z79.899 Other long term (current) drug therapy; Z95.1 Presence of aortocoronary bypass graft
CPT/HCPCS: 36221; 36415; 71010; 75625; 80048; 80053; 81000; 83690; 83735; 83880; 84484; 85025; 85027; 85610; 85730; 88305; 93005; 93459

== ENCOUNTER → 2016-09-07 | Outpatient (CLI) | payer MEDICARE, OTHER ==
[~2016-09-07] MED LIST changes: +ASPI-983 PO; +ATOR80TA64 PO; +CHLO473M MM; +CHOL200059 PO; +ISOS30TA3 PO; +METO-272 PO; +NYST15CR TP; +PANT40TA3 PO; +SUCR1TAB PO; +TERA5CAP3 PO; +TR1C15 TP; +ZOLP10TA PO
--- NOTE | 2016-09-07 14:32 | Diagnostic Imaging Report ---
Three views of the left knee. INDICATION: Left knee pain. FINDINGS: There is no fracture, dislocation or radiopaque foreign body. There is a mild suprapatellar effusion. There is mild osteophyte formation in the medial compartment with no significant joint space loss. IMPRESSION: Mild osteoarthritis. Small suprapatellar effusion. Dictated by: Dictated on workstation # [id number]
--- NOTE | 2016-09-07 14:50 | Diagnostic Imaging Report ---
EXAMINATION: Left lower extremity duplex venous ultrasound. TECHNIQUE: DVT protocol. Multiple sonographic images with color Doppler and waveform interrogation were performed of the left lower extremity veins with compression and augmentation maneuvers. INDICATION: Left leg pain. FINDINGS: The left lower extremity veins from the groin to below the knee veins were examined with normal color-flow, compressibility and waveform demonstrated except for the common femoral and distal femoral vein with compression and was not tolerated by the patient. Normal color flow is seen however. The great saphenous vein is patent. IMPRESSION: No evidence of DVT in the left lower extremity. Dictated by: Dictated on workstation # [id number]
== END ==
LOC: RAD 13:46
PROVIDERS: ATTEND Nurse Practitioner Family
DX: M79.605 Pain in left leg (principal); M25.562 Pain in left knee
CPT/HCPCS: 73562

== ENCOUNTER → 2016-09-28 | Outpatient (CLI) | payer MEDICARE, OTHER ==
[2016-09-28 10:51] LABS: ALBUMIN 3.6 G/DL (3.2-4.5); BILIRUBIN,TOTAL 0.6 MG/DL (0.1-1.0); CALCIUM 8.4 MG/DL (8.5-10.1); CREATININE SERUM 0.94 MG/DL (0.60-1.30); TOTAL PROTEIN 5.9 G/DL (6.4-8.2)
== END ==
LOC: LAB 10:09
PROVIDERS: ATTEND Physician Assistant
DX: I25.10 Atherosclerotic heart disease of native coronary artery without angina pectoris (principal); I10 Essential (primary) hypertension; E78.2 Mixed hyperlipidemia; G47.33 Obstructive sleep apnea (adult) (pediatric)
CPT/HCPCS: 36415; 80053; 80061

== ENCOUNTER → 2017-02-02 | Outpatient (CLI) | payer MEDICARE, OTHER | LOC: CARD 10:53 | PROVIDERS: ATTEND Family Medicine | DX: I49.9 Cardiac arrhythmia, unspecified (principal); R53.83 Other fatigue | CPT/HCPCS: 93005 ==

== ENCOUNTER → 2017-02-08 | Outpatient (CLI) | payer MEDICARE, OTHER | LOC: CARD 09:04 | PROVIDERS: ATTEND Physician Assistant | DX: I25.10 Atherosclerotic heart disease of native coronary artery without angina pectoris (principal); I10 Essential (primary) hypertension; E78.2 Mixed hyperlipidemia; R00.2 Palpitations | CPT/HCPCS: 93306 ==

== ENCOUNTER → 2017-02-10 | Outpatient (CLI) | payer MEDICARE, OTHER ==
[2017-02-10 13:06] LABS: ALBUMIN 3.6 GM/DL (3.2-4.5); BILIRUBIN,TOTAL 0.6 MG/DL (0.1-1.0); CALCIUM 8.8 MG/DL (8.5-10.1); CREATININE SERUM 0.92 MG/DL (0.60-1.30); POTASSIUM 4.3 MMOL/L (3.6-5.0); TOTAL PROTEIN 6.4 GM/DL (6.4-8.2)
[2017-02-10 13:27] LABS: THYROID STIMULATING HORMONE 0.6 UIU/ML (0.35-4.94)
== END ==
LOC: LAB 12:31
PROVIDERS: ATTEND Physician Assistant
DX: I25.10 Atherosclerotic heart disease of native coronary artery without angina pectoris (principal); E78.2 Mixed hyperlipidemia; I10 Essential (primary) hypertension; R00.2 Palpitations
CPT/HCPCS: 36415; 80053; 84443

== ENCOUNTER 2017-03-10 07:06 | Day surgery (SDC) | payer MEDICARE, OTHER ==
[2017-03-10] VITALS (15 sets, daily range): BP systolic 128–153; BP diastolic 70–102
[~2017-03-10] VITALS: Ht 170.2 cm; Wt 118.8 kg
[~2017-03-10 07:06] MED LIST changes: -METO-272 PO; +METO-370 PO
[2017-03-10] MEDS ORDERED: NS IV 1000 ML 1,000 ML ONE (07:10)
[2017-03-10] MEDS ORDERED: LIDOCAINE 2% VISCOUS 15 ML UDC ONE (07:10)
[2017-03-10] MEDS ORDERED: NS IV 1000 ML 1,000 ML IV SCH ×2 (07:53→08:15)
[2017-03-10 08:20] LABS: BILIRUBIN,URINE NEGATIVE (NEGATIVE); KETONES,URINE NEGATIVE (NEGATIVE); LEUKOCYTE ESTERASE ,URINE NEGATIVE (NEGATIVE); NITRITE,URINE NEGATIVE (NEGATIVE); PH,URINE 5 (5-9); PROTEIN,URINE NEGATIVE (NEGATIVE); UROBILINOGEN,URINE NORMAL (NORMAL)
[2017-03-10 08:22] LABS: MEAN PLATELET VOLUME 11.1 FL (7.4-10.4); RED BLOOD COUNT 4.68 10^6/uL (4.35-5.85); RED CELL DISTRIBUTION WIDTH 15.4 % (10.0-14.5); WHITE BLOOD COUNT 6.1 10^3/uL (4.3-11.0)
--- NOTE | 2017-03-10 08:25 | Diagnostic Imaging Report ---
INDICATION: Atrial fibrillation, dyspnea, coronary artery disease, and history of hypertension.. TECHNIQUE: Single-view chest 8:13 AM. CORRELATION STUDY: 08/25/2016. FINDINGS: Poststernotomy changes with changes of coronary artery bypass. Heart size enlarged. Mediastinum prominent. Vascularity is slightly increased from prior study. There also appears to be slight asymmetric fullness of the right sonia. Lung chavez demonstrate what appear to be chronic-type changes with mildly prominent interstitial markings. Minimal areas of atelectasis, scarring, or perhaps early infiltrate in the lung bases is present right slightly greater than left. Asymmetric eventration of the right diaphragm. IMPRESSION: 1. Cardiac enlargement with vasculature appearing slightly increased from prior study. 2. Either areas of atelectasis, infiltrate, or perhaps scarring about the lung bases right greater than left. Dictated by: Dictated on workstation # [id number]
[2017-03-10] MEDS ORDERED: MIDAZOLAM 2 MG/2 ML (VERSED) VIAL ONE (08:34)
[2017-03-10] MEDS ORDERED: proPOfol 200 MG/20 ML (DIPRIVAN) VIAL IV ONE (08:34)
--- NOTE | 2017-03-10 08:36 | Cardiac Procedure Note-CS/ASA ---
Pre-Procedure Note Pre-Op Procedure Note H&P Reviewed The H&P was reviewed, patient examined and no changes noted. Date H&P Reviewed: Mar 10, 2017 Time H&P Reviewed: 08:36 Conscious Sedation Pre-Proced Time Reviewed: 08:36 ASA Class: 3 Airway Mallampati Classification: ([place] appropriate class) I. II. III, IV Lungs Heart ASA score ASA 1: a normal healthy patient ASA 2: a patient with a mild systemic disease (mid diabetes, controlled hypertension, obesity X ASA 3: a patient with a severe systemic disease that limits activity (angina , COPD, prior Myocardial infarction) ASA 4: a patient with an incapacitating disease that is a constant threat to life (CHF, renal failure) ASA 5: a moribund patient not expected to survive 24 hrs. (ruptured aneurysm) ASA 6: a declared brain patient whose organs are being harvested. For emergent operations, add the letter E after the classification Grade 3 Sedation Plan: Analgesia, Amnesia, Plan communicated to team members, Discussed options with patient/fam, Discussed risks with patient/fam Note The patient is an appropriate candidate to undergo the planned procedure, sedation, and anesthesia. The patient immediately re-assessed prior to indication. MOHSEN MORRIS MD Mar 10, 2017 08:36
[2017-03-10 08:41] LABS: ALBUMIN 3.8 GM/DL (3.2-4.5); BILIRUBIN,TOTAL 0.8 MG/DL (0.1-1.0); CALCIUM 9.1 MG/DL (8.5-10.1); CREATININE SERUM 0.95 MG/DL (0.60-1.30); POTASSIUM 3.8 MMOL/L (3.6-5.0); TOTAL PROTEIN 6.4 GM/DL (6.4-8.2)
[2017-03-10 08:42] LABS: INR 1.1 (0.8-1.4)
[2017-03-10 08:48] LABS: SQUAMOUS EPITHELIAL CELL,UR 0-2 /HPF
--- NOTE | 2017-03-10 09:11 | Anesthesia-Procedure Note ---
Procedure Start/Stop Time Date of Procedure: Mar 10, 2017 Start Time: 08:40 Referring Physician: Alejandrina Preprocedural Diagnosis: A-Fib Stop Time: 08:50 Postprocedural Diagnosis: A-fib Procedures/Interventions Procedures Called to [facility] for VIANCA/Cardioversion sedation. Brief history obtained. Patient to left side. 1mg versed and 50mg propofol given for sedation of VIANCA. No cardioversion. VSS. Care to [facility] RN. Tolerated procedure well. AMBER JOHNSON CRNA Mar 10, 2017 09:11
[2017-03-10] MEDS ORDERED: OMEP20CA12 PO (09:29)
[2017-03-10] MEDS ORDERED: APIX5TAB PO (09:29)
[2017-03-10] MEDS ORDERED: ACET-789 PO (09:29)
[2017-03-10] MEDS ORDERED: METO-395 PO (09:29)
[2017-03-10] MEDS ORDERED: POTA10TA14 PO (09:30)
[2017-03-10] MEDS ORDERED: FURO20TA4 PO (09:31)
--- NOTE | 2017-03-10 16:42 | Clinic Account Progress/Dx ---
Clinic Account Progress/Dx DIAGNOSIS: Date Seen by Provider: Mar 10, 2017 Time Seen by Provider: 09:00 Diagnosis atrial fibrillation Palpitation Tachycardia MOHSEN MORRIS MD Mar 10, 2017 4:42 pm
== END 2017-03-10 11:20 | disposition home or self-care (01) ==
LOC: CATH 07:06 → SURG 10:10 → CATH 11:20
PROVIDERS: ATTEND Internal Medicine Cardiovascular Disease
DX: I48.0 Paroxysmal atrial fibrillation (principal); I34.0 Nonrheumatic mitral (valve) insufficiency; I25.10 Atherosclerotic heart disease of native coronary artery without angina pectoris; I10 Essential (primary) hypertension; E78.2 Mixed hyperlipidemia; Z95.1 Presence of aortocoronary bypass graft; Z79.899 Other long term (current) drug therapy; Z79.01 Long term (current) use of anticoagulants
CPT/HCPCS: 36415; 71010; 80053; 81000; 85027; 85610; 85730; 87081; 92960; 93005; 93312; 93320; 93325

== ENCOUNTER 2017-04-20 14:03 | Emergency (ER) | payer MEDICARE, OTHER ==
[~2017-04-20] VITALS: Ht 170.2 cm; Wt 118.8 kg
[~2017-04-20 14:03] MED LIST changes: +ACET-789 PO; +APIX5TAB PO; +FURO20TA4 PO; +METO-395 PO; +POTA10TA14 PO
[2017-04-20 14:19] LABS: BASOPHILS % (AUTO) 0 % (0-10); EOSINOPHILS # (AUTO) 0.2 10^3/uL (0.0-0.3); EOSINOPHILS % (AUTO) 3 % (0-10); LYMPHOCYTES # (AUTO) 1.2 X 10^3 (1.0-4.0); LYMPHOCYTES % (AUTO) 26 % (12-44); MEAN CORPUSCULAR HEMOGLOBIN 27 PG (25-34); MEAN CORPUSCULAR HGB CONC 32 G/DL (32-36); MEAN CORPUSCULAR VOLUME 86 FL (80-99); MEAN PLATELET VOLUME 10.8 FL (7.4-10.4); MONOCYTES # (AUTO) 0.4 X 10^3 (0.0-1.0); MONOCYTES % (AUTO) 10 % (0-12); NEUTROPHILS # (AUTO) 2.8 X 10^3 (1.8-7.8); NEUTROPHILS % (AUTO) 61 % (42-75); PLATELET COUNT 229 10^3/uL (130-400); RED BLOOD COUNT 4.84 10^6/uL (4.35-5.85); WHITE BLOOD COUNT 4.5 10^3/uL (4.3-11.0)
[2017-04-20 14:28] LABS: INR 1.2 (0.8-1.4); PROTHROMBIN TIME PATIENT 15.4 SEC (12.2-14.7)
[2017-04-20 14:39] LABS: ALANINE AMINOTRANSFERASE 12 U/L (0-55); ALBUMIN 3.8 GM/DL (3.2-4.5); ANION GAP 10 MMOL/L (5-14); ASPARTATE AMINO TRANSFERASE 17 U/L (5-34); BILIRUBIN,TOTAL 0.7 MG/DL (0.1-1.0); BLOOD UREA NITROGEN 13 MG/DL (7-18); BUN/CREATININE RATIO 13; CALCIUM 8.9 MG/DL (8.5-10.1); CARBON DIOXIDE 24 MMOL/L (21-32); CHLORIDE 104 MMOL/L (98-107); CREATININE SERUM 1.02 MG/DL (0.60-1.30); GFR ESTIMATED 53; GLUCOSE 105 MG/DL (70-105); MAGNESIUM 1.9 MG/DL (1.8-2.4); POTASSIUM 4.2 MMOL/L (3.6-5.0); SODIUM 138 MMOL/L (135-145); TOTAL PROTEIN 6.7 GM/DL (6.4-8.2)
[2017-04-20 14:46] LABS: MYOGLOBIN SERUM 42.1 NG/ML (10.0-92.0)
--- NOTE | 2017-04-20 14:46 | ED Cough/URI ---
General Chief Complaint: Respiratory Problems Stated Complaint: A-FIB/SOB Nursing Triage Note: PT REPORTS SOA SINCE LAST NOC. SHE HAS HX OF AFIB. SHE ALSO C/O SOME CHEST PRESSURE. SHE DENIES N/V Source: patient Exam Limitations: no limitations History of Present Illness Time seen by provider: 14:43 Initial Comments To ER with reports of shortness of breath since last night that is worse than usual. She was diagnosed with atrial fibrillation about 5 months ago. Since then she's had persistent orthopnea that requires her to sleep in her recliner, dyspnea with exertion even as simple as walking to the bathroom in her home wears her out. Last night, however, her symptoms were the same but more intense than usual. She had a brief episode of chest tightness and diaphoresis. She states that she can't see to drive after dark and didn't want to have to call an ambulance. She denies any chest tightness or diaphoresis today. In regards to her dyspnea she feels about baseline. She is on Eliquis. Timing/Duration: constant Severity/Quality: no cough Associated Symptoms: shortness of breath Allergies and Home Medications Allergies Coded Allergies: Iodinated Contrast Media - Oral and (Unverified Allergy, Mild, NAUSEA, 21/02) Pt states it's the IV dye used in heart tests not CT scans penicillin G (Verified Allergy, Unknown, 04/24/07) RASH Home Medications Acetaminophen with Codeine 1 Each Tablet, 1 TAB PO Q6H PRN for BACK PAIN, ( Reported) Apixaban 5 Mg Tablet, 5 MG PO BID, (Reported) Atorvastatin Calcium 80 Mg Tablet, 40 MG PO DAILY, (Reported) TAKES 1/2 (80MG) TABLET Cholecalciferol (Vitamin D3) 2,000 Unit Tablet, 2,000 UNIT PO DAILY, (Reported) Ezetimibe 10 Mg Tablet, 10 MG PO DAILY, (Reported) Furosemide 20 Mg Tablet, 20 MG PO DAILY, (Reported) Metoprolol Succinate 100 Mg Tab.er.24h, 100 MG PO DAILY, (Reported) Omeprazole 20 Mg Capsule.dr, 20 MG PO DAILY, (Reported) Paroxetine Hcl 20 Mg Tablet, 20 MG PO HS, (Reported) Potassium Chloride 10 Meq Tab.er.prt, 10 MEQ PO DAILY, (Reported) Terazosin HCl 5 Mg Capsule, 5 MG PO DAILY, (Reported) Trazodone Hcl 50 Mg Tab, 50 MG PO HS, (Reported) Zolpidem Tartrate 10 Mg Tablet, 10 MG PO HS, (Reported) Constitutional: see HPI EENTM: see HPI Respiratory: see HPI, orthopnea, short of breath Cardiovascular: see HPI, chest pain Genitourinary: no symptoms reported Musculoskeletal: no symptoms reported Skin: no symptoms reported Psychiatric/Neurological: No Symptoms Reported Past Bbmwrxk-Wfdmmy-Tvjkty Hx Patient Social History Alcohol Use: Denies Use Recreational Drug Use: No Smoking Status: Former Smoker Type Used: Cigarettes Former Smoker, Quit: Mar 10, 1991 2nd Hand Smoke Exposure: No Recent Foreign Travel: No Contact w/Someone Who Travel: No Recent Infectious Disease Expo: No Recent Hopitalizations: No Physical Abuse: No Sexual Abuse: No Immunizations Up To Date Tetanus Booster (TDap): Unknown Date of Pneumonia Vaccine: Sep 07, 2008 Date of Influenza Vaccine: May 26, 2016 Seasonal Allergies Seasonal Allergies: No Surgeries History of Surgeries: Yes (HERNIA REP) Surgeries: Eye Surgery, Gallbladder, Orthopedic Respiratory History of Respiratory Disorde: Yes (sleep apnea no cpap) Respiratory Disorders: Sleep Apnea Currently Using CPAP: No Currently Using BIPAP: No Cardiovascular History of Cardiac Disorders: Yes Cardiac Disorders: High Cholesterol, Hypertension Neurological History of Neurological Disord: No Reproductive System Hx Reproductive Disorders: No Sexually Transmitted Disease: No HIV/AIDS: No Female Reproductive Disorders: Denies Genitourinary History of Genitourinary Disor: Yes (bladder sling ) Gastrointestinal History of Gastrointestinal Di: Yes Gastrointestinal Disorders: Gastroesophageal Reflux Musculoskeletal History of Musculoskeletal Dis: Yes (hx fx wrist, lower back disc ) Musculoskeletal Disorders: Arthritis Endocrine History of Endocrine Disorders: No HEENT History of HEENT Disorders: Yes HEENT Disorders: Cataract Hearing Impairment: Hard of Hearing Cancer History of Cancer: No Psychosocial History of Psychiatric Problem: Yes Behavioral Health Disorders: Anxiety, Depression Suicide Risk Score: 0 Integumentary History of Skin or Integumenta: Yes (chronic abd folds/under breast rash ) Blood Transfusions History of Blood Disorders: No Adverse Reaction to a Blood Tr: No Family Medical History Significant Family History: No Pertinent Family Hx Family Medial History: Arthritis Cardiovascular disease Hypertension Physical Exam Vital Signs Vital Sign - Last 12Hours 04/20/17 04/20/17 14:03 14:05 Temp 97.4 Pulse 82 Resp 20 B/P (MAP) 135/80 Pulse Ox 94 O2 Delivery Room Air O2 Flow Rate 2.00 Capillary Refill : Less Than 3 Seconds General Appearance: WD/WN, no apparent distress Eyes: Bilateral Eye Normal Inspection, Bilateral Eye PERRL, Bilateral Eye EOMI HEENT: PERRL/EOMI, normal ENT inspection Neck: non-tender, full range of motion Respiratory: normal breath sounds, no respiratory distress, no accessory muscle use Cardiovascular: no murmur, irregularly irregular (rate of 90) Gastrointestinal: normal bowel sounds, non tender, soft Extremities: normal range of motion, non-tender, no pedal edema Neurologic/Psychiatric: alert, normal mood/affect, oriented x 3 Skin: normal color, warm/dry Progress/Results/Core Measures Results/Orders Lab Results Laboratory Tests Test 04/20/17 14:15 Range/Units White Blood Count 4.5 4.3-11.0 10^3/uL Red Blood Count 4.84 4.35-5.85 10^6/uL Hemoglobin 13.1 11.5-16.0 G/DL Hematocrit 42 35-52 % Mean Corpuscular Volume 86 80-99 FL Mean Corpuscular Hemoglobin 27 25-34 PG Mean Corpuscular Hemoglobin Concent 32 32-36 G/DL Red Cell Distribution Width 16.0 H 10.0-14.5 % Platelet Count 229 130-400 10^3/uL Mean Platelet Volume 10.8 H 7.4-10.4 FL Neutrophils (%) (Auto) 61 42-75 % Lymphocytes (%) (Auto) 26 12-44 % Monocytes (%) (Auto) 10 0-12 % Eosinophils (%) (Auto) 3 0-10 % Basophils (%) (Auto) 0 0-10 % Neutrophils # (Auto) 2.8 1.8-7.8 X 10^3 Lymphocytes # (Auto) 1.2 1.0-4.0 X 10^3 Monocytes # (Auto) 0.4 0.0-1.0 X 10^3 Eosinophils # (Auto) 0.2 0.0-0.3 10^3/uL Basophils # (Auto) 0.0 0.0-0.1 10^3/uL Prothrombin Time 15.4 H 12.2-14.7 SEC INR Comment 1.2 0.8-1.4 Activated Partial Thromboplast Time 30 24-35 SEC Sodium Level 138 135-145 MMOL/L Potassium Level 4.2 3.6-5.0 MMOL/L Chloride Level 104 98-107 MMOL/L Carbon Dioxide Level 24 21-32 MMOL/L Anion Gap 10 5-14 MMOL/L Blood Urea Nitrogen 13 7-18 MG/DL Creatinine 1.02 0.60-1.30 MG/DL Estimat Glomerular Filtration Rate 53 BUN/Creatinine Ratio 13 Glucose Level 105 70-105 MG/DL Calcium Level 8.9 8.5-10.1 MG/DL Magnesium Level 1.9 1.8-2.4 MG/DL Total Bilirubin 0.7 0.1-1.0 MG/DL Aspartate Amino Transf (AST/SGOT) 17 5-34 U/L Alanine Aminotransferase (ALT/SGPT) 12 0-55 U/L Alkaline Phosphatase 75 40-136 U/L Myoglobin 42.1 10.0-92.0 NG/ML Troponin I < 0.30 <0.30 NG/ML B-Type Natriuretic Peptide 475.1 H <100.0 PG/ML Total Protein 6.7 6.4-8.2 GM/DL Albumin 3.8 3.2-4.5 GM/DL My Orders Orders - SHEILA NARAYANAN APRN Cbc With Automated Diff (04/20/17 14:10) Magnesium (04/20/17 14:10) Chest 1 View, Ap/Pa Only (04/20/17 14:10) Cardiac Profile 1 (04/20/17 14:10) Comprehensive Metabolic Panel (04/20/17 14:10) Myoglobin Serum (04/20/17 14:10) Protime With Inr (04/20/17 14:10) Partial Thromboplastin Time (04/20/17 14:10) O2 (04/20/17 14:10) Monitor-Rhythm Ecg Trace Only (04/20/17 14:10) Lipid Panel (04/21/17 06:00) Saline Lock/Iv-Start (04/20/17 14:10) BNP (04/20/17 14:10) Furosemide Injection (Lasix Injection) (04/20/17 15:00) Medications Given in ED Current Medications Medications Dose Ordered Sig/Dominique Route Start Time Stop Time Status Last Admin Dose Admin Furosemide 40 mg ONCE ONCE IVP 04/20/17 15:00 04/20/17 15:01 DC 04/20/17 15:15 40 MG Vital Signs/I&O Vital Sign - Last 12Hours 04/20/17 04/20/17 14:03 14:05 Temp 97.4 Pulse 82 Resp 20 B/P (MAP) 135/80 Pulse Ox 94 98 O2 Delivery Room Air Nasal Cannula O2 Flow Rate 2.00 Blood Pressure Mean: 98 Diagnostic Imaging Diagonstic Imaging: Xray Plain Films/CT/US/NM/MRI: chest Comments NAME: ANNETTE BRASHER [facility] REC#: [id number] PT STATUS: REG ER : 1945 PHYSICIAN: SHEILA NARAYANAN APRN ADMIT DATE: 04/20/17/ER Draft Date of Exam:04/20/17 CHEST 1 VIEW, AP/PA ONLY INDICATION: Atrial fibrillation. Chest pain. FINDINGS: The heart size is mildly enlarged. There is mild pulmonary congestion. There is minimal atelectasis or scarring seen in the bases, similar to 03/10/2017. No significant effusion. No pneumothorax. Post CABG changes with sternotomy wires are seen. IMPRESSION: Cardiomegaly with mild vascular congestion. Mild bibasilar atelectasis or scarring, similar to the prior exam. Dictated on workstation # [id number] Dict: 04/20/17 1432 Trans: 04/20/17 1445 [id number] Interpreted by: JARROD GUZMAN MD Electronically signed by: Departure Impression Impression: Primary Impression: Atrial fibrillation Additional Impression: Dyspnea on exertion Disposition: 01 HOME, SELF-CARE Condition: Stable Departure-Patient Inst. Decision time for Depature: 14:50 Referrals: BIBIANA KAPADIA MD (PCP/Family) Primary Care Physician Copy Copies To 1: BIBIANA KAPADIA MD; MOHSEN MORRIS MD, PETER J APRN Apr 20, 2017 14:46
[2017-04-20] MEDS ORDERED: FUROSEMIDE 40 MG/4 ML INJ (LASIX) IVP ONE (15:00)
[2017-04-21 12:25] VITALS: BP 138/76
== END 2017-04-20 15:51 | disposition home or self-care (01) ==
LOC: EDUNIT# 14:03 → ER 14:04
DX: I48.91 Unspecified atrial fibrillation (principal); E78.00 Pure hypercholesterolemia, unspecified; I10 Essential (primary) hypertension; K21.9 Gastro-esophageal reflux disease without esophagitis; F41.9 Anxiety disorder, unspecified; F32.9 Major depressive disorder, single episode, unspecified; M19.90 Unspecified osteoarthritis, unspecified site; G47.30 Sleep apnea, unspecified; Z79.01 Long term (current) use of anticoagulants; Z96.0 Presence of urogenital implants; Z87.891 Personal history of nicotine dependence
CPT/HCPCS: 36415; 71010; 80053; 83735; 83874; 83880; 84484; 85025; 85610; 85730; 93005; 93041; 96374

== ENCOUNTER 2017-04-28 07:11 | Day surgery (SDC) | payer MEDICARE, OTHER ==
[2017-04-28] VITALS (12 sets, daily range): BP systolic 105–136; BP diastolic 63–85
[~2017-04-28] VITALS: Ht 170.2 cm; Wt 116.1 kg
[~2017-04-28 07:11] MED LIST changes: +LIDOCAINE 2% VISCOUS 15 ML UDC ONE; +METO-272 PO; +METO-274 PO; -METO-370 PO; -METO-395 PO; +NS IV 1000 ML 1,000 ML ONE
--- OUTSIDE RECORDS SUMMARY | 2017-04-28 07:14 | XMS REPORT | Encounter Summary ---
Author Author [facility] Organization [facility] Address Unknown Phone Unavailable Care Team Providers Care Panel Fitter Name Role Phone PCP Unavailable Reason for Visit * Reason Comments New Patient afib Encounter Details Date Type Department Care Team Description 04/22/2017 Patient Profile [facility] Brennon Link New Patient (afib ) [address] [place] [address] Social History Tobacco Use Types Packs/Day Years Used Date Former Smoker Quit: 07/26/1990 Smokeless Tobacco: Never Used Alcohol Use Drinks/Week oz/Week Comments No Sex Assigned at Date Recorded Not on file as of this encounter Plan of Treatment Not on fileas of this encounter Visit Diagnoses Not on filein this encounter
--- OUTSIDE RECORDS SUMMARY | 2017-04-28 07:14 | XMS REPORT | Encounter Summary ---
Author Author [facility] Organization [facility] Address Unknown Phone Unavailable Care Team Providers Care Jig Filler Name Role Phone PCP Unavailable Reason for Visit * Reason Comments Records Request Encounter Details Date Type Department Care Team Description 03/31/2017 Telephone [facility] Maite Daly Records Request [id number] [phone] [place] [address] [phone] Social History Tobacco Use Types Packs/Day Years Used Date Never Assessed Sex Assigned at Date Recorded Not on file as of this encounter Miscellaneous Notes * Telephone Encounter - Maite Daly - 03/31/2017 10:43 AM CDT I have requested records per Staff Message below- FAX # [phone] Maite Morataya [facility] [place] [facility] [employer] [phone] ----- Message from Kimberly Eddy sent at 03/31/2017 10:24 AM CDT ----- Regarding: Records Request Scarlett Spring [phone] in this encounter Plan of Treatment Not on fileas of this encounter Visit Diagnoses Not on filein this encounter
--- OUTSIDE RECORDS SUMMARY | 2017-04-28 07:14 | XMS REPORT | Continuity of Care Document ---
Author Author [facility] Organization [facility] Address Unknown Phone Unavailable Care Team Providers Care Sourcing Specialist Name Role Phone [employer] Unavailable Unavailable Problems Medications Allergies, Adverse Reactions, Alerts Immunizations Results Vital Signs Encounters Location Location Details Encounter Type Encounter Number Reason For Visit Attending Provider ADM Date DC Date Status Source O Active [facility] Procedures Plan of Care Social History Assessment and Plan Family History Value Date Source Advance Directives Order Name Results Value Date Source
--- OUTSIDE RECORDS SUMMARY | 2017-04-28 07:14 | XMS REPORT | Clinical Summary ---
Author Author [facility] Organization [facility] Address Unknown Phone Unavailable Care Team Providers Care Television Director Name Role Phone PCP Unavailable Source Comments Some departments are not documenting in the electronic medical record. If you do not see the information that you expected, contact Release of Information in the Health Information Management department at [phone] for further assistance in locating additional records.[facility] Allergies Active Allergy Reactions Severity Noted Date Comments Penicillins RASH Medium 04/22/2017 Iodinated Contrast- Oral NAUSEA AND VOMITING Low 04/22/2017 And Iv Dye Current Medications Prescription Sig. Disp. Refills Start End Date Status Date apixaban (ELIQUIS) 5 mg Take 5 mg by mouth twice Active tablet daily. potassium chloride SR Take 10 mEq by mouth Active (K-DUR) 10 mEq tablet daily. Take with a meal and a full glass of water. furosemide (LASIX) 20 mg Take 20 mg by mouth every Active tablet morning. atorvastatin (LIPITOR) 80 Take 80 mg by mouth Active mg tablet daily. metoprolol XL (TOPROL XL) Take 100 mg by mouth Active 100 mg extended release daily. tablet ezetimibe (ZETIA) 10 mg Take 10 mg by mouth Active tablet daily. zolpidem (AMBIEN) 10 mg Take 10 mg by mouth at Active tablet bedtime as needed for Sleep. CHOLECALCIFEROL (VITAMIN Take 1 tablet by mouth Active D3) PO daily. omeprazole DR(+) Take 20 mg by mouth daily Active (PRILOSEC) 20 mg capsule before breakfast. PARoxetine (PAXIL) 20 mg Take 20 mg by mouth Active tablet daily. terazosin (HYTRIN) 5 mg Take 5 mg by mouth at Active capsule bedtime daily. traZODone (DESYREL) 50 mg Take 50 mg by mouth at Active tablet bedtime as needed for Sleep. sacubitril/valsartan Take 1 tablet by mouth Active (ENTRESTO) 24/26 mg twice daily. tablet Active Problems Not on file Encounters Date Type Specialty Care Team Description 04/22/2017 Patient Profile Cardiology Brennon Link New Patient ( afib ) 03/31/2017 Telephone Cardiology Maite Daly Records Request from Last 3 Months Family History Medical History Relation Name Comments Heart Disease Brother Hypertension Brother Alcohol abuse Father Heart Disease Father Hypertension Father Heart Attack Maternal Grandmother Heart defect Maternal enlarged heart Grandmother Heart problem Maternal Grandmother Heart Attack Mother Heart Disease Mother Heart problem Mother Hypertension Mother Heart problem Paternal Grandmother Relation Name Status Comments Brother Alive Father (Age 67) Maternal Grandfather Maternal Grandmother (Age 67) Mother (Age 39) Paternal Grandfather Paternal Grandmother Social History Tobacco Use Types Packs/Day Years Used Date Former Smoker Quit: 07/26/1990 Smokeless Tobacco: Never Used Alcohol Use Drinks/Week oz/Week Comments No Sex Assigned at Date Recorded Not on file Last Filed Vital Signs Not on file Plan of Treatment Health Maintenance Due Date Last Done Comments HEPATITIS C SCREENING 1945 PHYSICAL (COMPREHENSIVE) 1952 EXAM PERTUSSIS VACCINE 1956 TETANUS VACCINE 1962 BREAST CANCER SCREENING 1985 COLORECTAL CANCER 1995 SCREENING SHINGLES VACCINE 2005 OSTEOPOROSIS SCREENING 2010 PREVNAR/PNEUMOVAX (#1) 2010 INFLUENZA VACCINE 04/25/2017 Results Not on filefrom Last 3 Months
[2017-04-28] MEDS ORDERED: NS IV 1000 ML 1,000 ML IV SCH (07:29)
[2017-04-28 07:52] LABS: MEAN PLATELET VOLUME 11.4 FL (7.4-10.4); RED BLOOD COUNT 4.84 10^6/uL (4.35-5.85); RED CELL DISTRIBUTION WIDTH 16.2 % (10.0-14.5)
--- NOTE | 2017-04-28 07:54 | Cardiac Procedure Note-CS/ASA ---
Pre-Procedure Note Pre-Op Procedure Note H&P Reviewed The H&P was reviewed, patient examined and no changes noted. Date H&P Reviewed: Apr 28, 2017 Time H&P Reviewed: 07:54 Conscious Sedation Pre-Proced Time Reviewed: 07:54 ASA Class: 3 Airway Mallampati Classification: ([place] appropriate class) I. II. III, IV Lungs Heart ASA score ASA 1: a normal healthy patient ASA 2: a patient with a mild systemic disease (mid diabetes, controlled hypertension, obesity x ASA 3: a patient with a severe systemic disease that limits activity (angina , COPD, prior Myocardial infarction) ASA 4: a patient with an incapacitating disease that is a constant threat to life (CHF, renal failure) ASA 5: a moribund patient not expected to survive 24 hrs. (ruptured aneurysm) ASA 6: a declared brain patient whose organs are being harvested. For emergent operations, add the letter E after the classification Grade 3 Sedation Plan: Analgesia, Amnesia, Plan communicated to team members, Discussed options with patient/fam, Discussed risks with patient/fam Note The patient is an appropriate candidate to undergo the planned procedure, sedation, and anesthesia. The patient immediately re-assessed prior to indication. MOHSEN MORRIS MD Apr 28, 2017 07:54
[2017-04-28 08:10] LABS: ALBUMIN 3.9 GM/DL (3.2-4.5); BILIRUBIN,TOTAL 0.7 MG/DL (0.1-1.0); CALCIUM 9.1 MG/DL (8.5-10.1); CREATININE SERUM 1.1 MG/DL (0.60-1.30); POTASSIUM 4.1 MMOL/L (3.6-5.0); TOTAL PROTEIN 6.8 GM/DL (6.4-8.2)
[2017-04-28] MEDS ORDERED: INFLUENZA TRIvalent 2017-2018 0.5 ML/45 MCG SYR IM ONE (08:15)
--- NOTE | 2017-04-28 08:16 | Diagnostic Imaging Report ---
INDICATION: Atrial fibrillation, hypertension, coronary artery disease. Preprocedural evaluation. TECHNIQUE: Single view chest 7:37 AM. CORRELATION STUDY: 04/20/2017 FINDINGS: Poststernotomy and coronary bypass surgical changes. Heart size enlarged. Vasculature is very slightly prominent. However, no evidence for failure. Mildly prominent interstitial markings noted. While some of this may be chronic, the possibility of superimposed edema is not excluded. No focal infiltrate. IMPRESSION: 1. Cardiac enlargement with vasculature slightly prominent but without evidence for overt failure. However, component of mild interstitial edema is not excluded. Dictated by: Dictated on workstation # [id number]
[2017-04-28] MEDS ORDERED: proPOfol 200 MG/20 ML (DIPRIVAN) VIAL IV ONE (08:25)
[2017-04-28] MEDS ORDERED: MIDAZOLAM 5 MG/5 ML (VERSED) VIAL ONE (08:26)
[2017-04-28] MEDS ORDERED: SACU1TAB PO (08:47)
[2017-04-28] MEDS ORDERED: LIDOCAINE 2% VISCOUS 15 ML UDC PO ONE (09:00)
--- NOTE | 2017-04-28 09:04 | Clinic Account Progress/Dx ---
Clinic Account Progress/Dx DIAGNOSIS: Date Seen by Provider: Apr 28, 2017 Time Seen by Provider: 09:04 paroxysmal atrial fibrillation Coronary artery disease Hypertension Hyperlipidemia MOHSEN MORRIS MD Apr 28, 2017 9:04 am
--- NOTE | 2017-04-28 09:40 | Anesthesia-Procedure Note ---
Procedure Start/Stop Time Date of Procedure: Apr 28, 2017 Start Time: 08:46 Stop Time: 09:01 Procedures/Interventions Procedures 04/28/17 [id number] Called to optical laboratory mechanic for sedation for VIANCA/Cardioversion. Patient's VSS and O2 at 2L/NC. Patient received 1 mg Versed and 80mg Propofol total for the entire procedure. Doing well. Etco2 34. Report off to AP Topete SHANNA R CRNA Apr 28, 2017 09:40
== END 2017-04-28 11:30 | disposition home or self-care (01) ==
LOC: CATH 07:11 → SURG 09:22 → CATH 11:30
PROVIDERS: ATTEND Internal Medicine Cardiovascular Disease
DX: I48.0 Paroxysmal atrial fibrillation (principal); I25.10 Atherosclerotic heart disease of native coronary artery without angina pectoris; I10 Essential (primary) hypertension; E78.5 Hyperlipidemia, unspecified; E66.01 Morbid (severe) obesity due to excess calories; I71.4 Abdominal aortic aneurysm, without rupture; Z68.41 Body mass index [BMI] 40.0-44.9, adult; Z95.1 Presence of aortocoronary bypass graft; Z87.891 Personal history of nicotine dependence; Z79.01 Long term (current) use of anticoagulants; Z79.899 Other long term (current) drug therapy
CPT/HCPCS: 36415; 71010; 80053; 85027; 87081; 93005; 93312; 93320; 93325

== ENCOUNTER 2017-08-25 22:20 | Emergency (ER) | payer MEDICARE, OTHER ==
[~2017-08-25] VITALS: Ht 170.2 cm; Wt 121.1 kg
[~2017-08-25 22:20] MED LIST changes: -LIDOCAINE 2% VISCOUS 15 ML UDC ONE; -METO-272 PO; -METO-274 PO; +METO-370 PO; +METO-395 PO; -NS IV 1000 ML 1,000 ML ONE; +SACU1TAB PO
[2017-08-25] MEDS ORDERED: ASPIRIN 81 MG CHEW (CHILDREN'S ASA) ONE (22:53)
[2017-08-25] MEDS ORDERED: meTOproloL SUCCINATE 50 MG (TOPROL XL) TAB PO ONE (22:55)
[2017-08-25] MEDS ORDERED: NS (IVPB) 250 ML ONE (23:00)
[2017-08-25] MEDS ORDERED: ENOXAPARIN 30 MG/0.3 ML (LOVENOX) SYR ONE (23:01)
[2017-08-25] MEDS ORDERED: ENOXAPARIN 100 MG/1 ML (LOVENOX) SYR ONE (23:01)
[2017-08-25] MEDS ORDERED: NS IV 1000 ML 1,000 ML ONE (23:19)
[2017-08-25 23:41] LABS: ALANINE AMINOTRANSFERASE 16 U/L (0-55); ALBUMIN 3.5 GM/DL (3.2-4.5); ALKALINE PHOSPHATASE 64 U/L (40-136); BILIRUBIN,TOTAL 0.8 MG/DL (0.1-1.0); BUN/CREATININE RATIO 13; CALCIUM 9.2 MG/DL (8.5-10.1); CARBON DIOXIDE 22 MMOL/L (21-32); CHLORIDE 107 MMOL/L (98-107); CREATININE SERUM 0.89 MG/DL (0.60-1.30); GFR ESTIMATED > 60; GLUCOSE 104 MG/DL (70-105); INR 1.1 (0.8-1.4); POTASSIUM 3.4 MMOL/L (3.6-5.0); PROTHROMBIN TIME PATIENT 14.5 SEC (12.2-14.7); SODIUM 143 MMOL/L (135-145); TOTAL PROTEIN 6.3 GM/DL (6.4-8.2)
[2017-08-25 23:42] LABS: HEMATOCRIT 39 % (35-52); HEMOGLOBIN 12.8 G/DL (11.5-16.0); LYMPHOCYTES % (AUTO) 22 % (12-44); MEAN CORPUSCULAR HEMOGLOBIN 29 PG (25-34); MEAN CORPUSCULAR HGB CONC 33 G/DL (32-36); MEAN CORPUSCULAR VOLUME 89 FL (80-99); MEAN PLATELET VOLUME 11.1 FL (7.4-10.4); MONOCYTES % (AUTO) 8 % (0-12); NEUTROPHILS % (AUTO) 65 % (42-75); PLATELET COUNT 233 10^3/uL (130-400); RED BLOOD COUNT 4.35 10^6/uL (4.35-5.85); RED CELL DISTRIBUTION WIDTH 14.5 % (10.0-14.5); WHITE BLOOD COUNT 5.7 10^3/uL (4.3-11.0)
[2017-08-25 23:43] LABS: BASOPHILS % (AUTO) 0 % (0-10); EOSINOPHILS # (AUTO) 0.2 10^3/uL (0.0-0.3); EOSINOPHILS % (AUTO) 4 % (0-10); LYMPHOCYTES # (AUTO) 1.3 X 10^3 (1.0-4.0); MONOCYTES # (AUTO) 0.5 X 10^3 (0.0-1.0); NEUTROPHILS # (AUTO) 3.7 X 10^3 (1.8-7.8)
[2017-08-26] MEDS ORDERED: NS IV 1000 ML 1,000 ML IV ONE (00:12)
[2017-08-26] MEDS ORDERED: RX-OSELTAMIVIR 75 MG (TAMIFLU) BOX OF 10 PO ONE (01:49)
[2017-08-26 03:16] LABS: BILIRUBIN,URINE NEGATIVE (NEGATIVE); COLOR,URINE YELLOW; GLUCOSE, URINE (UA) NEGATIVE (NEGATIVE); KETONES,URINE NEGATIVE (NEGATIVE); LEUKOCYTE ESTERASE ,URINE NEGATIVE (NEGATIVE); NITRITE,URINE NEGATIVE (NEGATIVE); PH,URINE 6.5 (5-9); PROTEIN,URINE NEGATIVE (NEGATIVE); UROBILINOGEN,URINE NORMAL (NORMAL)
[2017-08-26] MEDS ORDERED: NS IV 1000 ML 1,000 ML ONE (03:18)
[2017-08-26 03:25] LABS: BACTERIA,URINE TRACE /HPF; CLARITY,URINE CLEAR
--- NOTE | 2017-08-26 04:16 | ED Cardiac General ---
History of Present Illness General Chief Complaint: Cardiac/General Problems Stated Complaint: SOA,IRREG HEART RATE Allergies and Home Medications Allergies Coded Allergies: Iodinated Contrast- Oral and IV Dye (Unverified Allergy, Mild, NAUSEA, 21/02) Pt states it's the IV dye used in heart tests not CT scans penicillin G (Verified Allergy, Unknown, 04/24/07) RASH Home Medications Acetaminophen with Codeine 1 Each Tablet, 1 TAB PO Q6H PRN for BACK PAIN, ( Reported) Apixaban 5 Mg Tablet, 5 MG PO BID, (Reported) Atorvastatin Calcium 80 Mg Tablet, 40 MG PO DAILY, (Reported) TAKES 1/2 (80MG) TABLET Cholecalciferol (Vitamin D3) 2,000 Unit Tablet, 2,000 UNIT PO DAILY, (Reported) Ezetimibe 10 Mg Tablet, 10 MG PO DAILY, (Reported) Furosemide 20 Mg Tablet, 20 MG PO DAILY, (Reported) Metoprolol Succinate 100 Mg Tab.er.24h, 100 MG PO DAILY, (Reported) Omeprazole 20 Mg Capsule.dr, 20 MG PO DAILY, (Reported) Paroxetine Hcl 20 Mg Tablet, 20 MG PO HS, (Reported) Potassium Chloride 10 Meq Tab.er.prt, 10 MEQ PO DAILY, (Reported) Sacubitril/Valsartan 1 Each Tablet, 1 EACH PO BID, (Reported) Terazosin HCl 5 Mg Capsule, 5 MG PO DAILY, (Reported) Trazodone Hcl 50 Mg Tab, 50 MG PO HS, (Reported) Zolpidem Tartrate 10 Mg Tablet, 10 MG PO HS, (Reported) Past Nshcfnk-Sudbfd-Dpjnoe Hx Patient Social History Type Used: Cigarettes Former Smoker, Quit: Apr 28, 1991 2nd Hand Smoke Exposure: No Recent Foreign Travel: No Contact w/Someone Who Travel: No Recent Hopitalizations: No Immunizations Up To Date Tetanus Booster (TDap): Unknown Date of Pneumonia Vaccine: Sep 07, 2008 Date of Influenza Vaccine: May 26, 2016 Seasonal Allergies Seasonal Allergies: No Surgeries History of Surgeries: Yes (HERNIA REP) Surgeries: Eye Surgery, Gallbladder, Orthopedic Respiratory History of Respiratory Disorde: Yes (sleep apnea no cpap) Respiratory Disorders: Sleep Apnea Currently Using CPAP: No Currently Using BIPAP: No Cardiovascular History of Cardiac Disorders: Yes Cardiac Disorders: High Cholesterol, Hypertension Neurological History of Neurological Disord: No Reproductive System Hx Reproductive Disorders: No Sexually Transmitted Disease: No HIV/AIDS: No Female Reproductive Disorders: Denies Genitourinary History of Genitourinary Disor: Yes (bladder sling ) Gastrointestinal History of Gastrointestinal Di: Yes Gastrointestinal Disorders: Gastroesophageal Reflux Musculoskeletal History of Musculoskeletal Dis: Yes (hx fx wrist, lower back disc ) Musculoskeletal Disorders: Arthritis Endocrine History of Endocrine Disorders: No HEENT History of HEENT Disorders: Yes HEENT Disorders: Cataract Hearing Impairment: Hard of Hearing Cancer History of Cancer: No Psychosocial History of Psychiatric Problem: Yes Behavioral Health Disorders: Anxiety, Depression Integumentary History of Skin or Integumenta: Yes (chronic abd folds/under breast rash ) Blood Transfusions History of Blood Disorders: No Adverse Reaction to a Blood Tr: No Family Medical History Significant Family History: No Pertinent Family Hx Family Medial History: Arthritis Cardiovascular disease Hypertension Physical Exam Vital Signs Capillary Refill : Focused Exam Evaluation Lactate Level Laboratory Tests 08/26/17 00:10: Lactic Acid Level 0.90 Lactic Acid Level Laboratory Tests Test 08/26/17 00:10 Lactic Acid Level 0.90 MMOL/L (0.50-2.00) Progress/Results/Core Measures Results/Orders Lab Results Laboratory Tests Test 08/25/17 22:50 08/26/17 00:10 08/26/17 03:10 08/26/17 03:30 Range/Units White Blood Count 5.7 4.3-11.0 10^3/uL Red Blood Count 4.35 4.35-5.85 10^6/uL Hemoglobin 12.8 11.5-16.0 G/DL Hematocrit 39 35-52 % Mean Corpuscular Volume 89 80-99 FL Mean Corpuscular Hemoglobin 29 25-34 PG Mean Corpuscular Hemoglobin Concent 33 32-36 G/DL Red Cell Distribution Width 14.5 10.0-14.5 % Platelet Count 233 130-400 10^3/uL Mean Platelet Volume 11.1 H 7.4-10.4 FL Neutrophils (%) (Auto) 65 42-75 % Lymphocytes (%) (Auto) 22 12-44 % Monocytes (%) (Auto) 8 0-12 % Eosinophils (%) (Auto) 4 0-10 % Basophils (%) (Auto) 0 0-10 % Neutrophils # (Auto) 3.7 1.8-7.8 X 10^3 Lymphocytes # (Auto) 1.3 1.0-4.0 X 10^3 Monocytes # (Auto) 0.5 0.0-1.0 X 10^3 Eosinophils # (Auto) 0.2 0.0-0.3 10^3/uL Basophils # (Auto) 0.0 0.0-0.1 10^3/uL Prothrombin Time 14.5 12.2-14.7 SEC INR Comment 1.1 0.8-1.4 Activated Partial Thromboplast Time 30 24-35 SEC Sodium Level 143 135-145 MMOL/L Potassium Level 3.4 L 3.6-5.0 MMOL/L Chloride Level 107 98-107 MMOL/L Carbon Dioxide Level 22 21-32 MMOL/L Anion Gap 14 5-14 MMOL/L Blood Urea Nitrogen 12 7-18 MG/DL Creatinine 0.89 0.60-1.30 MG/DL Estimat Glomerular Filtration Rate > 60 BUN/Creatinine Ratio 13 Glucose Level 104 70-105 MG/DL Calcium Level 9.2 8.5-10.1 MG/DL Total Bilirubin 0.8 0.1-1.0 MG/DL Aspartate Amino Transf (AST/SGOT) 22 5-34 U/L Alanine Aminotransferase (ALT/SGPT) 16 0-55 U/L Alkaline Phosphatase 64 40-136 U/L Troponin I < 0.30 < 0.30 <0.30 NG/ML B-Type Natriuretic Peptide 310.0 H <100.0 PG/ML Total Protein 6.3 L 6.4-8.2 GM/DL Albumin 3.5 3.2-4.5 GM/DL Thyroid Stimulating Hormone (TSH) 1.39 0.35-4.94 UIU/ML Lactic Acid Level 0.90 0.50-2.00 MMOL/L Urine Color YELLOW Urine Clarity CLEAR Urine pH 6.5 5-9 Urine Specific [place] 1.015 L 1.016-1.022 Urine Protein NEGATIVE NEGATIVE Urine Glucose (UA) NEGATIVE NEGATIVE Urine Ketones NEGATIVE NEGATIVE Urine Nitrite NEGATIVE NEGATIVE Urine Bilirubin NEGATIVE NEGATIVE Urine Urobilinogen NORMAL NORMAL MG/DL Urine Leukocyte Esterase NEGATIVE NEGATIVE Urine RBC (Auto) NEGATIVE NEGATIVE Urine RBC NONE /HPF Urine WBC NONE /HPF Urine Squamous Epithelial Cells 5-10 /HPF Urine Crystals NONE /LPF Urine Bacteria TRACE /HPF Urine Casts NONE /LPF Urine Mucus SMALL H /LPF Urine Culture Indicated NO Micro Results Microbiology 2/1/18 Influenza Types A,B Antigen (JOBY) - Final, Complete My Orders Orders - ROSIE KIRKPATRICK DO Aspirin Chewable Tablet (Baby Aspirin Ch (08/25/17 22:53) Metoprolol Succinate (Xl) Tab (Toprol Xl (08/25/17 22:55) Ns (Ivpb) (Sodium Chloride 0.9%) (08/25/17 23:00) Enoxaparin Injection (Lovenox Injection) (08/25/17 23:01) Enoxaparin Injection (Lovenox Injection) (08/25/17 23:01) Ns Iv 1000 Ml (Sodium Chloride 0.9%) (08/25/17 23:19) Chest 1 View, Ap/Pa Only (08/25/17 ) Cbc With Automated Diff (08/25/17 22:50) Comprehensive Metabolic Panel (08/25/17 22:50) Troponin I (08/25/17 22:50) Thyroid Stimulating Hormone (08/25/17 22:50) BNP (08/25/17 22:50) Protime With Inr (08/25/17 22:50) Partial Thromboplastin Time (08/25/17 22:50) Lactic Acid Analyzer (08/26/17 00:12) Ua Culture If Indicated (08/26/17 00:12) Blood Culture (08/26/17 00:12) Influenza A And B Antigens (08/26/17 00:12) Saline Lock/Iv-Start (08/26/17 00:12) Ns Iv 1000 Ml (Sodium Chloride 0.9%) (08/26/17 00:12) Ct Chest Wo (08/26/17 00:57) Oseltamivir 75 Mg (10's) Caps (Tamiflu 7 (08/26/17 09:00) Rx-Oseltamivir Caps (Rx-Tamiflu Caps) (08/26/17 01:49) Troponin I (08/26/17 03:18) Ns Iv 1000 Ml (Sodium Chloride 0.9%) (08/26/17 03:18) Medications Given in ED Current Medications Medications Dose Ordered Sig/Dominique Route Start Time Stop Time Status Last Admin Dose Admin Sodium Chloride 1,000 ml @ 0 mls/hr Q0M ONCE IV 08/26/17 00:12 08/26/17 01:51 DC 08/26/17 01:20 1,000 MLS/HR Sodium Chloride 1,000 ml @ STK-MED ONCE .ROUTE 08/26/17 03:18 08/26/17 03:20 DC 08/26/17 03:25 1,000 MLS/HR Progress Note : Progress Note GIVEN IV FLUIDS AND HER NORMAL PM DOSE OF METOPROLOL --100 MG, AND HEART RATE DOWN TO 70'S AND BP UP TO > 100 SYSTOLIC FOR REMAINDER OF ER STAY PT STATES SHE FEELS COMPLETELY FINE NOW AND FEELS COMFORTABLE GOING HOME REPEAT TROPONIN ALSO NEGATIVE. Departure Impression Impression: Primary Impression: Atrial fibrillation with rapid ventricular response Additional Impression: Influenza B Disposition: HOME, SELF-CARE Condition: Improved Departure-Patient Inst. Referrals: BIBIANA KAPADIA MD (PCP/Family) Primary Care Physician MOHSEN MORRIS MD Patient Instructions: Atrial Fibrillation (DC), Flu, Adult (DC) Add. Discharge Instructions: TAKE ALL OF YOUR REGULAR MEDICATIONS PRESCRIBED TAKE TAMIFLU TWICE A DAY X 5 DAYS TYLENOL NEEDED FOR PAIN OR FEVER MUCINEX DM FOR COUGH FOLLOW UP WITH YOUR DR IN 3-4 DAYS IF NO BETTER, RETURN TO ER IF WORSE All discharge instructions reviewed with patient and/or family. Voiced understanding. ROSIE KIRKPATRICK DO Aug 26, 2017 04:16
[2017-08-26 04:31] VITALS: BP 125/80
--- NOTE | 2017-08-26 05:39 | Diagnostic Imaging Report ---
INDICATION: Dizziness. Shortness of air. COMPARISON: 04/28/2017. FINDINGS: Single frontal radiographic view of the chest was obtained and demonstrates normal cardiac silhouette. There is moderate prominence of pulmonary vasculature and slight prominence of pulmonary interstitium, diffusely. There is no large effusion or pneumothorax. Sternotomy wires are noted. Bony structures show no gross acute abnormalities. IMPRESSION: 1. Pulmonary vascular congestion with probable interstitial pulmonary edema. Dictated by: Dictated on workstation # [id number]
--- NOTE | 2017-08-26 06:55 | Diagnostic Imaging Report ---
PROCEDURE: CT chest without contrast. TECHNIQUE: Multiple contiguous axial images were obtained through the chest without the use of intravenous contrast. INDICATION: Dyspnea Comparison is made to study of 02/27/2008. There is no evidence of new consolidation. Basilar atelectasis and/or scarring is noted bilaterally. There is no significant pleural or pericardial fluid. Evaluation of the mediastinum is somewhat limited without intravenous contrast however there is moderate atherosclerotic calcification of the aorta and coronary arteries. Calcification are also seen in the left hilum likely related to previous granulomatous residua. There is no significant pleural or pericardial fluid. Numerous granulomas are also seen in the spleen. There is moderate compression fracture deformity of L1 vertebral body. IMPRESSION: L1 vertebral body compression fracture of indeterminate age. Correlation to site of pain would be useful. Otherwise, no acute abnormality or significant adverse change is identified. Dictated by: Dictated on workstation # [id number]
[2017-08-26] MEDS ORDERED: OSELTAMIVIR 75 MG (TAMIFLU) BOX OF 10 PO SCH (09:00)
== END 2017-08-26 04:31 | disposition home or self-care (01) ==
LOC: EDUNIT# 22:20 → ER 22:21
DX: I48.0 Paroxysmal atrial fibrillation (principal); J10.1 Influenza due to other identified influenza virus with other respiratory manifestations; F41.9 Anxiety disorder, unspecified; F32.9 Major depressive disorder, single episode, unspecified; E78.00 Pure hypercholesterolemia, unspecified; I10 Essential (primary) hypertension; Z87.891 Personal history of nicotine dependence; Z88.0 Allergy status to penicillin; Z91.041 Radiographic dye allergy status
CPT/HCPCS: 36415; 71045; 71250; 80053; 81000; 83605; 83880; 84443; 84484; 85025; 85610; 85730; 87040; 87804; 96360; 96361; 96372

== ENCOUNTER → 2017-09-01 | Outpatient (CLI) | payer MEDICARE, OTHER | LOC: RAD 13:29 | PROVIDERS: ATTEND Internal Medicine Cardiovascular Disease | DX: I48.0 Paroxysmal atrial fibrillation (principal); I25.10 Atherosclerotic heart disease of native coronary artery without angina pectoris; I10 Essential (primary) hypertension; E78.2 Mixed hyperlipidemia; R07.89 Other chest pain ==

== ENCOUNTER 2017-10-27 14:46 | Emergency (ER) | payer MEDICARE, OTHER ==
[~2017-10-27] VITALS: Ht 170.2 cm; Wt 121.1 kg
--- OUTSIDE RECORDS SUMMARY | 2017-10-27 14:52 | XMS REPORT | Continuity of Care Document ---
Author Author [facility] Organization [facility] Address Unknown Phone Unavailable Care Team Providers Care Speech Pathologist Name Role Phone [employer] Unavailable Unavailable Problems Medications Allergies, Adverse Reactions, Alerts Immunizations Results Vital Signs Encounters Location Location Details Encounter Type Encounter Number Reason For Visit Attending Provider ADM Date DC Date Status Source [id number] Active [facility] OUTPATIENT [id number] [facility] [place] 06/01/2017 Active [facility] O 07/08/2017 Active [facility]PATIENT [id number] [facility]2017 Active [facility] Procedures Plan of Care Social History Assessment and Plan Family History Advance Directives Functional Status
--- OUTSIDE RECORDS SUMMARY | 2017-10-27 14:53 | XMS REPORT | Clinical Summary ---
Author Author [facility] Organization [facility] Address Unknown Phone Unavailable Care Team Providers Care Manager Of Investigations Name Role Phone Scarlett Spring MD PCP Source Comments Some departments are not documenting in the electronic medical record. If you do not see the information that you expected, contact Release of Information in the Health Information Management department at [phone] for further assistance in locating additional records.[facility] Allergies Active Allergy Reactions Severity Noted Date Comments Iodinated Contrast- Oral NAUSEA AND VOMITING Low 04/22/2017 And Iv Dye Penicillins RASH Medium 04/22/2017 Current Medications Prescription Sig. Disp. Refills Start [...] Active (ENTRESTO) 24/26 mg twice daily. tablet acetaminophen/codeine Take 1 tablet by mouth Active (TYLENOL #3) 300/30 mg every 6 hours as needed tablet for Pain (pt takes for back pain). Max of 4,000 mg of acetaminophen in 24 hours. Active Problems Problem Noted Date SOB (shortness of breath) 05/06/2017 HTN (hypertension) 05/06/2017 Atrial fibrillation (HCC) 05/06/2017 Overview: ECHO 03/09/17 EF 60-65%, LA mildly dilated CAD (coronary artery disease) 05/06/2017 Overview: 2004: CABG x4 Pulmonary hypertension (HCC) 05/06/2017 Hyperlipidemia 05/06/2017 Family History Medical History Relation Name Comments [...] Not on file Last Filed Vital Signs Vital Sign Reading Time Taken Blood Pressure 126/86 07/08/2017 12:58 PM TELEPHONE MECHANIC Pulse 55 07/08/2017 12:58 PM TELEPHONE MECHANIC Temperature - - Respiratory Rate - - Oxygen Saturation 93% 06/01/2017 12:40 PM TELEPHONE MECHANIC Inhaled Oxygen - - Concentration Weight 121.6 kg (268 lb) 07/08/2017 12:58 PM TELEPHONE MECHANIC Height 167.6 cm (5' 5.98") 07/08/2017 12:58 PM TELEPHONE MECHANIC Body Mass Index 43.28 07/08/2017 12:58 PM TELEPHONE MECHANIC Plan of Treatment Health Maintenance Due Date Last Done Comments HEPATITIS C SCREENING 1945 PHYSICAL (COMPREHENSIVE) 1952 EXAM PERTUSSIS VACCINE 1956 TETANUS VACCINE 1962 BREAST CANCER SCREENING 1985 COLORECTAL CANCER 1995 SCREENING SHINGLES VACCINE 2005 OSTEOPOROSIS SCREENING 2010 PREVNAR/PNEUMOVAX (#1) 2010 INFLUENZA VACCINE 04/25/2018 Procedures Procedure Name Priority Date/Time Associated Diagnosis Comments ECG-SCAN 10/06/2017 Results for this 8:00 AM CDT procedure are in the results section. from Last 3 Months Results * ECG-SCAN (10/06/2017 8:00 AM) Narrative Ordered by an unspecified provider. from Last 3 Months
--- OUTSIDE RECORDS SUMMARY | 2017-10-27 14:56 | XMS REPORT | CCD ---
Author Author [facility] Organization [facility] Address [address] [place] [address] Phone Care Team Providers Care Dx Board Operator Name Role Phone PP Unavailable CCM Unavailable Summary Purpose Interface Exchange Insurance Providers Payer name Policy type / Coverage type Covered constitution party ID Effective Begin Date Effective End Date WPS Medicare Part B Medicare Part B [id number] Unknown Unknown [employer] Medicare Part B [id number] Unknown Unknown Family history Mother Diagnosis Age At Onset Hypertension Unknown Heart Attack Unknown Brother Diagnosis Age At Onset Heart disease Unknown Runs in the family Diagnosis Age At Onset Heart disease Unknown Daughter Diagnosis Age At Onset Heart Attack Unknown Hyperlipidemia Unknown Hypertension Unknown Social History Social History Element Codes Description Effective Dates Number of children Unknown 2 daughter lives in [place], son - does not have contact [address]: 0593981 Quit over 10 years ago 1990 - previously smoked 2ppd x 25 years. 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/06/2015 Allergies, Adverse Reactions, Alerts Allergies, Adverse Reactions, Alerts data not found Past Medical History Illness Codes Condition Status Onset Date Resolved Date Chronic atrial fibrillation ICD-9: 427.31 ICD-10: I48.2 Active 08/23/2017 Unknown Essential (primary) hypertension ICD-9: 401.9 ICD-10: I10 Active 03/05/2015 Unknown Encounter for general adult medical examination with abnormal findings ICD-9: V70.0 ICD-10: Z00.01 Active 02/03/2017 Unknown Paroxysmal atrial fibrillation ICD-9: 427.31 ICD-10: I48.0 Active 02/02/2017 Unknown Acute laryngopharyngitis ICD-9: 465.0 ICD-10: J06.0 Active 11/26/2016 Unknown Cough ICD-9: 786.2 ICD-10: R05 Active 11/26/2016 Unknown Other dorsalgia ICD-9 : 724.5 ICD-10: M54.89 Active 03/05/2015 Unknown Pleurodynia ICD-9: 786.50 ICD-10: R07.81 Active 11/26/2016 Unknown Low back pain ICD-9: 724.2 ICD-10: M54.5 Active 10/07/2016 Unknown Major depressive disorder, recurrent, moderate ICD-9: 296.32 ICD-10: F33.1 Active 10/07/2016 Unknown Pain in left knee ICD- 9: 719.46 ICD-10: M25.562 Active 09/07/2016 Unknown Major depressive disorder, recurrent, 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-10: F33.0 Active 09/16/2016 Unknown Rash and other nonspecific skin eruption ICD-9: 782.1 ICD-10: R21 Active 08/27/2015 Unknown Pain in left lower leg ICD-9: 729.5 ICD-10: M79.662 Active 09/07/2016 Unknown Encounter for immunization ICD-9: V03.9 ICD-10: Z23 Active 04/07/2016 Unknown Mixed hyperlipidemia ICD-9: 272.2 ICD-10: E78.2 Active 04/07/2016 Unknown Shortness of breath ICD-9: 786.05 ICD-10: R06.02 Active 03/04/2016 Unknown Chronic obstructive pulmonary disease, unspecified ICD-9: 491.20 ICD-10: J44.9 Active 12/03/2015 Unknown Allergic rhinitis due to pollen ICD-9: 477.0 ICD-10: J30.1 Active 11/17/2015 Unknown Dysuria ICD-9: 788.1 ICD-10: R30.0 Active 09/29/2015 Unknown Localized edema ICD-9 : 782.3 ICD-10: R60.0 Active 09/29/2015 Unknown Nausea ICD-9: 787.02 ICD-10: R11.0 Active 09/29/2015 Unknown Methicillin susceptible Staphylococcus aureus infection, unspecified site ICD-9: 041.11 ICD-10: A49.01 Active 09/08/2015 Unknown Methicillin susceptible Staphylococcus aureus infection as the cause of diseases classified elsewhere ICD-9: 041.11 ICD-10: B95.61 Active 09/08/2015 Unknown Dermatophytosis, unspecified ICD-9: 110.9 ICD-10: B35.9 Active 08/27/2015 Unknown Gastro-esophageal reflux disease without esophagitis ICD-9: 530.81 ICD-10: K21.9 Active 03/05/2015 Unknown Back pain ICD-9: 724.5 Active 03/05/2015 Unknown ESOPHAGEAL REFLUX ICD- 9: 530.81 Active 03/05/2015 Unknown ESSENTIAL HYPERTENSION ICD-9: 401.9 Active 03/05/2015 Unknown Insomnia ICD-9: 780.52 Active 03/05/2015 Unknown Osteoporosis ICD-9: 733.00 Active 03/05/2015 Unknown Aneursym Unknown Active 01/18/2015 Unknown carotid stenosis Unknown Active 01/18/2015 Unknown Heart disease Unknown Active 01/18/2015 Unknown Hyperlipidemia Unknown Active 01/18/2015 Unknown Hypertension Unknown Active 01/18/2015 Unknown Problems Condition Codes Effective Dates Condition Status Chronic atrial fibrillation ICD-9: 427.31 ICD-10: I48.2 08/23/2017 Active Essential (primary) hypertension ICD-9: 401.9 ICD-10: I10 03/05/2015 Active Encounter for general adult medical examination with abnormal findings ICD-9: V70.0 ICD-10: Z00.01 02/03/2017 Active Paroxysmal atrial fibrillation ICD-9: 427.31 ICD-10: I48.0 02/02/2017 Active Acute laryngopharyngitis ICD-9: 465.0 ICD-10: J06.0 11/26/2016 Active Cough ICD-9: 786.2 ICD-10: R05 11/26/2016 Active Other dorsalgia ICD-9 : 724.5 ICD-10: M54.89 03/05/2015 Active Pleurodynia ICD-9: 786.50 ICD-10: R07.81 11/26/2016 Active Low back pain ICD-9: 724.2 ICD-10: M54.5 10/07/2016 Active Major depressive disorder, recurrent, moderate ICD-9: 296.32 ICD-10: F33.1 10/07/2016 Active Pain in left knee ICD- 9: 719.46 ICD-10: M25.562 09/07/2016 Active Major depressive disorder, recurrent, 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-10: F33.0 09/16/2016 Active Rash and other nonspecific skin eruption ICD-9: 782.1 ICD-10: R21 08/27/2015 Active Pain in left lower leg ICD-9: 729.5 ICD-10: M79.662 09/07/2016 Active Encounter for immunization ICD-9: V03.9 ICD-10: Z23 04/07/2016 Active Mixed hyperlipidemia ICD-9: 272.2 ICD-10: E78.2 04/07/2016 Active Shortness of breath ICD-9: 786.05 ICD-10: R06.02 03/04/2016 Active Chronic obstructive pulmonary disease, unspecified ICD-9: 491.20 ICD-10: J44.9 12/03/2015 Active Allergic rhinitis due to pollen ICD-9: 477.0 ICD-10: J30.1 11/17/2015 Active Dysuria ICD-9: 788.1 ICD-10: R30.0 09/29/2015 Active Localized edema ICD-9 : 782.3 ICD-10: R60.0 09/29/2015 Active Nausea ICD-9: 787.02 ICD-10: R11.0 09/29/2015 Active Methicillin susceptible Staphylococcus aureus infection, unspecified site ICD-9: 041.11 ICD-10: A49.01 09/08/2015 Active Methicillin susceptible Staphylococcus aureus infection as the cause of diseases classified elsewhere ICD-9: 041.11 ICD-10: B95.61 09/08/2015 Active Dermatophytosis, unspecified ICD-9: 110.9 ICD-10: B35.9 08/27/2015 Active Gastro-esophageal reflux disease without esophagitis ICD-9: 530.81 ICD-10: K21.9 03/05/2015 Active Back pain ICD-9: 724.5 03/05/2015 Active ESOPHAGEAL REFLUX ICD- 9: 530.81 03/05/2015 Active ESSENTIAL HYPERTENSION ICD-9: 401.9 03/05/2015 Active Insomnia ICD-9: 780.52 03/05/2015 Active Osteoporosis ICD-9: 733.00 03/05/2015 Active Aneursym Unknown 01/18/2015 Active carotid stenosis Unknown 01/18/2015 Active Heart disease Unknown 01/18/2015 Active Hyperlipidemia Unknown 01/18/2015 Active Hypertension Unknown 01/18/2015 Active Medications Medication Codes Instructions Start Date Stop Date Status Fill Instructions omeprazole 20 mg capsule,delayed release RxNorm: 075340 TAKE ONE CAPSULE BY MOUTH ONCE DAILY AT BEDTIME 08/27/2017 No Stop Date Active trazodone 50 mg tablet RxNorm: 642781 TAKE ONE TABLET BY MOUTH ONCE DAILY 08/18/2017 No Stop Date Active Ambien 10 mg tablet RxNorm: 343103 Tablet(s) TAKE ONE TABLET BY MOUTH AT BEDTIME 08/18/2017 10/16/2017 Active paroxetine 20 mg tablet RxNorm: 3202288 TAKE ONE TABLET BY MOUTH ONCE DAILY 07/27/2017 No Stop Date Active Ambien 10 mg tablet RxNorm: 912909 Tablet(s) TAKE ONE TABLET BY MOUTH AT BEDTIME 06/23/2017 08/20/2017 Inactive omeprazole 20 mg capsule,delayed release RxNorm: 895128 TAKE ONE CAPSULE BY MOUTH ONCE DAILY AT BEDTIME 04/23/20172017 Inactive trazodone 50 mg tablet RxNorm: 923466 TAKE ONE TABLET BY MOUTH ONCE DAILY 04/13/2017 08/10/2017 Inactive terazosin 5 mg capsule RxNorm: 926089 Capsule(s) TAKE ONE CAPSULE BY MOUTH DAILY 04/08/2017 03/03/2018 Active Ambien 10 mg tablet RxNorm: 767885 Tablet(s) TAKE ONE TABLET BY MOUTH AT BEDTIME 02/17/2017 2017 Inactive Tylenol-Codeine #3 300 mg-30 mg tablet RxNorm: 933739 1 Tablet(s) PO QID as needed 02/02/2017 03/03/2017 Inactive metoprolol succinate ER 50 mg tablet,extended release 24 hr RxNorm: 762518 TAKE ONE TABLET BY MOUTH ONCE DAILY 12/23/2016 02/02/2017 Inactive Zithromax Z-Ted 250 mg tablet RxNorm: 857782 1 Tablet(s) PO UD 11/26/2016 02/16/2017 Inactive trazodone 50 mg tablet RxNorm: 843709 TAKE ONE TABLET BY MOUTH ONCE DAILY 11/12/2016 03/11/2017 Inactive Ambien 10 mg tablet RxNorm: 535796 Tablet(s) TAKE ONE TABLET BY MOUTH AT BEDTIME 10/22/2016 02/15/2017 Inactive paroxetine 20 mg tablet RxNorm: 2760811 1 Tablet(s) PO daily TAKE ONE TABLET BY MOUTH DAILY 09/16/2016 06/12/2017 Inactive meloxicam 7.5 mg tablet RxNorm: 661490 1 Tablet(s) PO daily 11/14/2016 Inactive Protonix 40 mg tablet,delayed release RxNorm: 187668 1 Tablet(s) PO daily 09/16/2016 08/22/2017 Inactive sucralfate 1 gram tablet RxNorm: 842824 1 Tablet(s) PO TID 08/22/2017 Inactive Ambien 10 mg tablet RxNorm: 245582 Tablet(s) TAKE ONE TABLET BY MOUTH AT BEDTIME 08/24/2016 10/21/2016 Inactive trazodone 50 mg tablet RxNorm: 357594 Tablet(s) TAKE ONE TABLET BY MOUTH DAILY 07/29/2016 11/11/2016 Inactive Ambien 10 mg tablet RxNorm: 247853 TAKE ONE TABLET BY MOUTH AT BEDTIME 06/23/2016 07/21/2016 Inactive Ambien 10 mg tablet RxNorm: 713785 Tablet(s) TAKE ONE TABLET BY MOUTH EVERY NIGHT AT BEDTIME 06/22/2016 06/23/2016 Inactive Ambien 10 mg tablet RxNorm: 029219 Tablet(s) TAKE ONE TABLET BY MOUTH EVERY NIGHT AT BEDTIME 04/03/2016 05/31/2016 Inactive Lasix 40 mg tablet RxNorm: 214758 1 Tablet(s) PO daily as needed for swelling 04/03/2016 09/15/2016 Inactive potassium chloride ER 20 mEq tablet,extended release RxNorm: 787895 1 Tablet(s) PO daily for swelling take with lasix as needed 04/03/2016 09/15/2016 Inactive omeprazole 20 mg capsule,delayed release RxNorm: 457520 TAKE ONE CAPSULE BY MOUTH EVERY NIGHT AT BEDTIME 03/31/20162016 Inactive paroxetine 20 mg tablet RxNorm: 4271258 TAKE ONE TABLET BY MOUTH DAILY 03/31/2016 09/15/2016 Inactive trazodone 50 mg tablet RxNorm: 103246 TAKE ONE TABLET BY MOUTH DAILY 03/20/2016 07/28/2016 Inactive terazosin 5 mg capsule RxNorm: 195683 TAKE ONE CAPSULE BY MOUTH DAILY 03/06/2016 10/06/2016 Inactive Ambien 10 mg tablet RxNorm: 252125 Tablet(s) TAKE ONE TABLET BY MOUTH EVERY NIGHT AT BEDTIME 01/17/2016 04/02/2016 Inactive loratadine 10 mg tablet RxNorm: 024710 1 Tablet(s) PO daily 09/15/2016 Inactive mupirocin 2 % topical ointment RxNorm: 774112 1 Application TOP TID 11/18/2015 12/01/2015 Inactive metoprolol succinate ER 50 mg tablet,extended release 24 hr RxNorm: 015384 1 Tablet(s) PO daily 11/18/2015 11/11/2016 Inactive loratadine 10 mg tablet RxNorm: 870381 1 Tablet(s) PO daily 01/14/2016 Inactive Lasix 40 mg tablet RxNorm: 315565 1 Tablet(s) PO daily as needed for swelling 10/30/2015 11/28/2015 Inactive potassium chloride ER 20 mEq tablet,extended release RxNorm: 912248 1 Tablet(s) PO daily for swelling take with lasix as needed 10/30/2015 11/28/2015 Inactive Tylenol-Codeine #3 300 mg-30 mg tablet RxNorm: 256525 1 Tablet(s) PO QID as needed 10/25/2015 02/01/2017 Inactive Ambien 10 mg tablet RxNorm: 126421 Tablet(s) TAKE ONE TABLET BY MOUTH EVERY NIGHT AT BEDTIME 10/18/2015 01/13/2016 Inactive Diflucan 150 mg tablet RxNorm: 415340 1 Tablet(s) PO daily 02/201612/03/2015 Inactive Lasix 20 mg tablet RxNorm: 676105 1 Tablet(s) PO PRN fror swelling 09/27/2015 10/29/2015 Inactive potassium chloride ER 10 mEq capsule,extended release RxNorm: 170043 1 Capsule(s) PO PRN for swelling take with lasix 09/27/2015 10/29/2015 Inactive Bactrim DS 800 mg-160 mg tablet RxNorm: 643202 1 Tablet(s) PO BID 09/02/2015 09/11/2015 Inactive Bactrim DS 800 mg-160 mg tablet RxNorm: 176854 1 Tablet(s) PO BID 09/02/2015 09/01/2015 Inactive nystatin 100,000 unit/gram topical cream RxNorm: 178175 1 Gram(s) TOP TID 08/28/2015 09/26/2015 Inactive Diflucan 150 mg tablet RxNorm: 497373 1 Tablet(s) PO daily 09/201509/06/2015 Inactive betamethasone dipropionate 0.05 % topical ointment RxNorm: 193446 1 Application TOP TID to affected area 08/02/20152016 Inactive nystatin 100,000 unit/gram topical powder RxNorm: 859332 1 Gram(s) TOP QID 07/09/2015 08/01/2015 Inactive Ambien 10 mg tablet RxNorm: 546089 1 Tablet(s) PO QHS 201406/18/2015 Inactive Ambien 10 mg tablet RxNorm: 404155 TAKE ONE TABLET BY MOUTH EVERY NIGHT AT BEDTIME 06/19/2015 09/16/2015 Inactive Vitamin D2 50,000 unit capsule RxNorm: 387059 1 Capsule(s) PO QW 03/07/2015 03/06/2015 Inactive Vitamin D2 50,000 unit capsule RxNorm: 172005 1 Capsule(s) PO QW 03/07/2015 05/05/2015 Inactive terazosin 5 mg capsule RxNorm: 719358 1 Capsule(s) PO daily 06/201502/28/2016 Inactive [SAVINGS FOR NON-COVERED DRUGS -- BIN:[id number], N: [id number], Group: XXXXX, ID# [id number], Questions: . THIS IS NOT INSURANCE.] trazodone 50 mg tablet RxNorm: 711349 1 Tablet(s) PO daily 06/201502/28/2016 Inactive paroxetine 20 mg tablet RxNorm: 4242882 1 Tablet(s) PO daily 02/28/2016 Inactive Tylenol-Codeine #3 300 mg-30 mg tablet RxNorm: 486399 1 Tablet(s) PO QID as needed 03/06/2015 07/02/2015 Inactive amlodipine 10 mg tablet RxNorm: 415911 1 Tablet(s) PO daily 06/201511/17/2015 Inactive metoprolol succinate ER 25 mg tablet,extended release 24 hr RxNorm: 290125 1 Tablet(s) PO daily 03/06/2015 11/17/2015 Inactive omeprazole 20 mg capsule,delayed release RxNorm: 834104 1 Capsule(s) PO QHS 03/06/2015 02/28/2016 Inactive omeprazole 20 mg capsule,delayed release RxNorm: 361302 1 Capsule(s) PO QHS 01/31/2015 01/30/2015 Inactive omeprazole 20 mg capsule,delayed release RxNorm: 610556 1 Capsule(s) PO QHS 01/31/2015 01/30/2015 Inactive omeprazole 20 mg capsule,delayed release RxNorm: 959253 1 Capsule(s) PO QHS 01/31/2015 03/05/2015 Inactive Ambien 10 mg tablet RxNorm: 213456 1 Tablet(s) PO QHS 201404/21/2015 Inactive paroxetine 20 mg tablet RxNorm: 838229 1 Tablet(s) PO daily 08/201412/24/2014 Inactive Ambien 10 mg tablet RxNorm: 188780 1 Tablet(s) PO QHS 201412/24/2014 Inactive paroxetine 20 mg tablet RxNorm: 337333 1 Tablet(s) PO daily 08/201403/05/2015 Inactive terazosin 5 mg capsule RxNorm: 676842 1 Capsule(s) PO daily 07/201403/05/2015 Inactive [SAVINGS FOR NON-COVERED DRUGS -- BIN:[id number], PCN: [id number], Group: XXXXX, ID# [id number], Questions: . THIS IS NOT INSURANCE.] terazosin 5 mg capsule RxNorm: 794429 1 Capsule(s) PO daily 07/201411/22/2014 Inactive Lasix 20 mg tablet RxNorm: 554934 1 Tablet(s) PO daily No Start Date Active Entresto 49 mg-51 mg tablet RxNorm: 4003190 1 Tablet(s) PO BID No Start Date Active K-Dur 10 mEq tablet,extended release RxNorm: 055514 1 Tablet(s) PO daily No Start Date Active Eliquis 5 mg tablet RxNorm: 2186722 1 Tablet(s) PO BID No Start Date Active Vitamin D3 2,000 unit tablet RxNorm: 499771 1 Tablet(s) PO daily No Start Date Active Zetia 10 mg tablet RxNorm: 551151 1 Tablet(s) PO daily No Start Date Active Lipitor 80 mg tablet RxNorm: 434300 1/2 Tablet(s) PO daily No Start Date Active metoprolol succinate ER 100 mg tablet,extended release 24 hr RxNorm: 130380 1 Tablet(s) PO daily No Start Date Active metoprolol succinate ER 25 mg tablet,extended release 24 hr RxNorm: 532103 1 Tablet(s) PO daily No Start Date 2014 Inactive betamethasone dipropionate 0.05 % topical ointment RxNorm: 482944 1 Application TOP TID to affected area No Start Date 01/2016 Inactive trazodone 50 mg tablet RxNorm: 069420 1 Tablet(s) PO daily No Start Date 03/05/2015 Inactive potassium chloride ER 10 mEq capsule,extended release RxNorm: 105452 1 Capsule(s) PO PRN for swelling take with lasix No Start Date 09/26/2015 Inactive amlodipine 10 mg tablet RxNorm: 475440 1 Tablet(s) PO daily No Start Date 03/05/2015 Inactive isosorbide mononitrate ER 30 mg tablet,extended release 24 hr RxNorm: 770831 1 Tablet(s) PO daily No Start Date 2017 Inactive aspirin 81 mg tablet,delayed release RxNorm: 553867 1 Tablet(s) PO daily No Start Date 02/02/2017 Inactive Lasix 20 mg tablet RxNorm: 388763 1 Tablet(s) PO PRN fror swelling No Start Date 09/26/2015 Inactive Crestor 40 mg tablet RxNorm: 502081 1 Tablet(s) PO daily No Start Date 09/15/2016 Inactive Medication Administered No Medication Administered data Immunizations Vaccine Codes Date Status Influenza CVX: 141 04/08/2016 completed Pneumococcal (Adult) CVX: 133 04/08/2016 completed Assessments Condition Codes Effective Dates Chronic atrial fibrillation ICD-10: I48.2 ICD-9: 427.31 08/23/2017 Essential (primary) hypertension ICD-10: I10 ICD-9: 401.9 08/23/2017 Encounter for general adult medical examination with abnormal findings ICD-10: Z00.01 ICD-9: V70.0 02/03/2017 Paroxysmal atrial fibrillation ICD-10: I48.0 ICD-9: 427.31 02/02/2017 Acute laryngopharyngitis ICD-10: J06.0 ICD-9: 465.0 11/26/2016 Pleurodynia ICD-10: R07.81 ICD-9: 786.50 11/26/2016 Other dorsalgia ICD-10: M54.89 ICD-9: 724.5 11/26/2016 Cough ICD-10: R05 ICD-9: 786.2 11/26/2016 Low back pain ICD-10: M54.5 ICD-9: 724.2 10/07/2016 Major depressive disorder, recurrent, moderate ICD-10: F33.1 ICD-9: 296.32 10/07/2016 Pain in left knee ICD-10: M25.562 ICD-9: 719.46 10/07/2016 Rash and other nonspecific skin eruption ICD-10: R21 ICD-9: 782.1 09/16/2016 Major depressive disorder, recurrent, mild ICD-10: F33.0 ICD-9: 296.31 09/16/2016 Pain in left lower leg ICD-10: M79.662 ICD-9: 729.5 09/07/2016 Encounter for immunization ICD-10: Z23 ICD-9: V03.9 04/08/2016 Mixed hyperlipidemia ICD-10: E78.2 ICD-9: 272.2 04/08/2016 Shortness of breath ICD-10: R06.02 ICD-9: 786.05 03/05/2016 Chronic obstructive pulmonary disease, unspecified ICD-10: J44.9 ICD-9: 491.20 12/04/2015 Allergic rhinitis due to pollen ICD-10: J30.1 ICD-9: 477.0 11/18/2015 Dysuria ICD-10: R30.0 ICD-9: 788.1 09/30/2015 Localized edema ICD-10: R60.0 ICD-9: 782.3 09/30/2015 Nausea ICD-10: R11.0 ICD-9: 787.02 09/30/2015 Methicillin susceptible Staphylococcus aureus infection as the cause of diseases classified elsewhere ICD-10: B95.61 ICD-9: 041.11 09/09/2015 Methicillin susceptible Staphylococcus aureus infection, unspecified site ICD-10: A49.01 ICD-9: 041.11 09/09/2015 Dermatophytosis, unspecified ICD-10: B35.9 ICD-9: 110.9 08/28/2015 Gastro-esophageal reflux disease without esophagitis ICD-10 : K21.9 ICD-9: 530.81 07/09/2015 ESOPHAGEAL REFLUX ICD-9: 530.81 2014 ESSENTIAL HYPERTENSION ICD-9: 401.9 03/06 Back pain ICD-9: 724.5 03/06/2015 Insomnia ICD-9: 780.52 03/06/2015 Osteoporosis ICD-9: 733.00 03/06/2015 Reason For Visit Reason For Visit Effective Dates Notes hypertension 08/23/2017 Annual Medicare Wellness Exam 02/03/2017 hypertension 02/02/2017 sinus congestion 11/26/2016 hypertension 10/07/2016 hypertension 09/16/2016 knee pain 09/07/2016 dyspnea 04/08/2016 dyspnea 03/05/2016 dyspnea 12/04/2015 edema 11/18/2015 edema 09/30/2015 rash 09/09/2015 rash 08/28/2015 back pain 07/09/2015 back pain 03/06/2015 Results Observation Observation Code Item Item Code Result Date Comp Metabolic Ljw552 NA 137 mEq/L 09/30/2015 Comp Metabolic Ksz781 K 4.5 mEq/L 09/30/2015 Comp Metabolic Ltq133 CL 102 mEq/L 09/30/2015 Comp Metabolic Ebr642 CO2 26.0 mEq/L 09/30/2015 Comp Metabolic Zzt161 ANION GAP 14 09/30/2015 Comp Metabolic Dsr710 GLUCOSE 89 mg/dL 09/30/2015 Comp Metabolic Aof767 Creat 0.8 mg/dL 09/30/2015 Comp Metabolic Wyi483 eGFR 79 ml/min/1.73m2 09/30/2015 Comp Metabolic Hsa066 BUN 14 mg/dL 09/30/2015 Comp Metabolic Joy023 B/C Ratio 18.2 Ratio 09/30/2015 Comp Metabolic Mdb772 CALCIUM 8.9 mg/dL 09/30/2015 Comp Metabolic Tkw136 ALK PHOS 65 U/L 09/30/2015 Comp Metabolic Tgw382 AST(SGOT) 26 U/L 09/30/2015 Comp Metabolic Nhl862 ALT(SGPT) 18 U/L 09/30/2015 Comp Metabolic Hqw001 BILI T 0.6 mg/dL 09/30/2015 Comp Metabolic Sbq682 ALBUMIN 3.8 g/dL 09/30/2015 Comp Metabolic Api173 TPRO 6.6 g/dL 09/30/2015 Comp Metabolic Izg767 GLOB 2.8 g/dL 09/30/2015 Comp Metabolic Jkn799 A/G Ratio 1.4 Ratio 09/30/2015 Comp Metabolic Kcw532 Osmo 274 mOsmo 09/30/2015 Cbc With Differential Ord2 WBC 5.80 K/ul 09/30/2015 Cbc With Differential Ord2 RBC 4.52 M/ul 09/30/2015 Cbc With Differential Ord2 HGB 12.5 g/dl 09/30/2015 Cbc With Differential Ord2 Neut% 66.7 % 09/30/2015 Cbc With Differential Ord2 HCT 39.7 % 09/30/2015 Cbc With Differential Ord2 MCV 87.8 fl 09/30/2015 Cbc With Differential Ord2 Lymph% 19.0 % 09/30/2015 Cbc With Differential Ord2 MCH 27.7 pg 09/30/2015 Cbc With Differential Ord2 [place]% 10.7 % 09/30/2015 Cbc With Differential Ord2 Eos% 3.4 % 09/30/2015 Cbc With Differential Ord2 MCHC 31.5 pg 09/30/2015 Cbc With Differential Ord2 Baso% 0.2 % 09/30/2015 Cbc With Differential Ord2 PLT 212 K/ul 09/30/2015 Cbc With Differential Ord2 Neut ABS# 3.87 K/ul 09/30/2015 Cbc With Differential Ord2 RDW 15.1 % 09/30/2015 Cbc With Differential Ord2 Lymph ABS# 1.10 K/ul 09/30/2015 Cbc With Differential Ord2 [place] ABS# 0.6 K/ul 09/30/2015 Cbc With Differential Ord2 Eos ABS# 0.2 K/ul 09/30/2015 Cbc With Differential Ord2 Baso ABS# 0.0 K/ul 09/30/2015 Cbc With Differential Ord2 New Analyzer Notice Please note new ref ranges starting 08-07-2015 due to implemntation of new five part differential hematolgy analyzer. 09/30/2015 Tsh Ord6 hTSH II 1.05 uIU/mL 03/06/2015 Comp Metabolic Jfx742 NA 137 mEq/L 03/06/2015 Comp Metabolic Bch937 K 4.3 mEq/L 03/06/2015 Comp Metabolic Rgw162 CL 104 mEq/L 03/06/2015 Comp Metabolic Wyy478 CO2 28.0 mEq/L 03/06/2015 Comp Metabolic Iiw554 ANION GAP 9 03/06/2015 Comp Metabolic Fze966 GLUCOSE 93 mg/dL 03/06/2015 Comp Metabolic Qeb362 Creat 0.8 mg/dL 03/06/2015 Comp Metabolic Woy149 eGFR 81 ml/min/1.73m2 03/06/2015 Comp Metabolic Jpz879 BUN 12 mg/dL 03/06/2015 Comp Metabolic Qic538 B/C Ratio 16.0 Ratio 03/06/2015 Comp Metabolic Isj119 CALCIUM 8.9 mg/dL 03/06/2015 Comp Metabolic Foq305 ALK PHOS 56 U/L 03/06/2015 Comp Metabolic Yih721 AST(SGOT) 22 U/L 03/06/2015 Comp Metabolic Mso418 ALT(SGPT) 15 U/L 03/06/2015 Comp Metabolic Xth534 BILI T 0.4 mg/dL 03/06/2015 Comp Metabolic Lsl099 ALBUMIN 4.0 g/dL 03/06/2015 Comp Metabolic Qtq278 TPRO 6.5 g/dL 03/06/2015 Comp Metabolic Gwt034 GLOB 2.5 g/dL 03/06/2015 Comp Metabolic Pkk101 A/G Ratio 1.6 Ratio 03/06/2015 Comp Metabolic Rrt036 Osmo 273 mOsmo 03/06/2015 Vitamin D 25 Oh Gnl2868 VITAMIN D, 25 HYDROXY 28.14 ng/mL Cbc With Differential Ord2 WBC 5.6 K/uL 03/06/2015 Cbc With Differential Ord2 LYM 1.6 K/uL 03/06/2015 Cbc With Differential Ord2 LYM% 28.5 % 03/06/2015 Cbc With Differential Ord2 NEUT/GRAN 3.6 K/uL 03/06/2015 Cbc With Differential Ord2 NEUT/GRAN % 63.8 % 03/06/2015 Cbc With Differential Ord2 MID 0.4 K/uL 03/06/2015 Cbc With Differential Ord2 MID% 7.7 % 03/06/2015 Cbc With Differential Ord2 RBC 4.60 M/uL 03/06/2015 Cbc With Differential Ord2 HGB 12.8 g/dL 03/06/2015 Cbc With Differential Ord2 HCT 40.3 % 03/06/2015 Cbc With Differential Ord2 MCV 88 fL 03/06/2015 Cbc With Differential Ord2 MCH 28 pg 03/06/2015 Cbc With Differential Ord2 MCHC 32 g/dL 03/06/2015 Cbc With Differential Ord2 PLT 210 K/uL 03/06/2015 Cbc With Differential Ord2 RDW 15.7 % 03/06/2015 Review of Systems System Result Effective Dates Constitutional No recent illness 2017 Constitutional No chills 08/23/2017 Constitutional fatigue 08/23/2017 Constitutional No fever 08/23/2017 Constitutional No insomnia 08/23/2017 Eyes No blindness 08/23/2017 Eyes No vision change 08/23/2017 Ears/Nose/Throat/Neck No dental pain Ears/Nose/Throat/Neck No dizziness 2017 Ears/Nose/Throat/Neck No dysphagia 2017 Ears/Nose/Throat/Neck No headache 2017 Ears/Nose/Throat/Neck No hearing loss Ears/Nose/Throat/Neck No nasal allergies 08/23/2017 Ears/Nose/Throat/Neck No sore throat Ears/Nose/Throat/Neck No postnasal drip 08/23/2017 Ears/Nose/Throat/Neck No sinus congestion 08/23/2017 Cardiovascular No chest pain/pressure Cardiovascular edema 08/23/2017 Cardiovascular exercise intolerance 08/23 Cardiovascular fatigue 08/23/2017 Cardiovascular No near-syncope/dizziness 08/23/2017 Respiratory No chest tightness 2017 Respiratory dyspnea on exertion 2017 Respiratory dyspnea 08/23/2017 Respiratory pedal edema 08/23/2017 Gastrointestinal No abdominal pain 2017 Gastrointestinal No constipation 2017 Gastrointestinal No diarrhea 08/23/2017 Gastrointestinal No gastroesophageal reflux 08/23/2017 Gastrointestinal No nausea 08/23/2017 Gastrointestinal No vomiting 08/23/2017 Genitourinary/Nephrology No dysuria 08/23 Genitourinary/Nephrology No nocturia Genitourinary/Nephrology No urinary incontinence 08/23/2017 Musculoskeletal stiffness 08/23/2017 Musculoskeletal No swelling 08/23/2017 Musculoskeletal No muscle weakness 2017 Musculoskeletal No myalgias 08/23/2017 Dermatologic No rash 08/23/2017 Dermatologic No sores 08/23/2017 Dermatologic No scar 08/23/2017 Neurologic No dizziness 08/23/2017 Neurologic No headache 08/23/2017 Neurologic No neck pain 08/23/2017 Neurologic No syncope 08/23/2017 Psychiatric No anxiety 08/23/2017 Psychiatric No depression 08/23/2017 Constitutional No recent illness 2016 Constitutional No chills 02/03/2017 Constitutional No diaphoresis 02/03/2017 Constitutional fatigue 02/03/2017 Constitutional No fever 02/03/2017 Eyes No eye erythema 02/03/2017 Ears/Nose/Throat/Neck No nasal discharge 02/03/2017 Cardiovascular No chest pain/pressure 06/2017 Cardiovascular fatigue 02/03/2017 Cardiovascular edema 02/03/2017 Cardiovascular palpitations 02/03/2017 Respiratory dyspnea on exertion 2016 Respiratory No cough 02/03/2017 Respiratory No chest congestion 2016 Neurologic No alteration of consciousness 02/03/2017 Neurologic No mental status change 2016 Constitutional recent illness 02/02/2017 Constitutional No chills 02/02/2017 Constitutional fatigue 02/02/2017 Constitutional No fever 02/02/2017 Constitutional No insomnia 02/02/2017 Constitutional malaise 02/02/2017 Eyes No blindness 02/02/2017 Eyes No vision change 02/02/2017 Ears/Nose/Throat/Neck No dental pain 05/2017 Ears/Nose/Throat/Neck No dizziness 2016 Ears/Nose/Throat/Neck No dysphagia 2016 Ears/Nose/Throat/Neck No headache 2016 Ears/Nose/Throat/Neck No hearing loss 05/2017 Ears/Nose/Throat/Neck No nasal allergies 02/02/2017 Ears/Nose/Throat/Neck No sore throat 05/2017 Ears/Nose/Throat/Neck No postnasal drip 02/02/2017 Ears/Nose/Throat/Neck No sinus congestion 02/02/2017 Cardiovascular No chest pain/pressure 05/2017 Cardiovascular edema 02/02/2017 Cardiovascular exercise intolerance 02/02 Cardiovascular fatigue 02/02/2017 Cardiovascular No near-syncope/dizziness 02/02/2017 Respiratory No chest tightness 2016 Respiratory dyspnea on exertion 2016 Respiratory dyspnea 02/02/2017 Respiratory pedal edema 02/02/2017 Gastrointestinal No abdominal pain 2016 Gastrointestinal No constipation 2016 Gastrointestinal No diarrhea 02/02/2017 Gastrointestinal No gastroesophageal reflux 02/02/2017 Gastrointestinal No nausea 02/02/2017 Gastrointestinal No vomiting 02/02/2017 Genitourinary/Nephrology No dysuria 02/02 Genitourinary/Nephrology No nocturia 05/2017 Genitourinary/Nephrology No urinary incontinence 02/02/2017 Musculoskeletal stiffness 02/02/2017 Musculoskeletal No swelling 02/02/2017 Musculoskeletal No muscle weakness 2016 Musculoskeletal No myalgias 02/02/2017 Dermatologic No rash 02/02/2017 Dermatologic No sores 02/02/2017 Dermatologic No scar 02/02/2017 Neurologic No dizziness 02/02/2017 Neurologic No headache 02/02/2017 Neurologic No neck pain 02/02/2017 Neurologic No syncope 02/02/2017 Psychiatric No anxiety 02/02/2017 Psychiatric No depression 02/02/2017 Constitutional recent illness 11/26/2016 Constitutional chills 11/26/2016 Constitutional No diaphoresis 11/26/2016 Constitutional fever 11/26/2016 Eyes No eye erythema 11/26/2016 Ears/Nose/Throat/Neck nasal allergies 10/2016 Ears/Nose/Throat/Neck nasal discharge 10/2016 Ears/Nose/Throat/Neck postnasal drip 10/2016 Ears/Nose/Throat/Neck sinus congestion Cardiovascular No chest pain/pressure 10/2016 Cardiovascular No dyspnea 11/26/2016 Respiratory cough 11/26/2016 Respiratory No dyspnea 11/26/2016 Gastrointestinal No constipation 2016 Gastrointestinal No diarrhea 11/26/2016 Gastrointestinal No nausea 11/26/2016 Gastrointestinal No vomiting 11/26/2016 Neurologic No alteration of consciousness 11/26/2016 Neurologic No mental status change 2016 Respiratory chest congestion 11/26/2016 Respiratory No productive sputum 2016 Respiratory dyspnea on exertion 2016 Constitutional No recent illness 2016 Constitutional No chills 10/07/2016 Constitutional No fatigue 10/07/2016 Constitutional No fever 10/07/2016 Constitutional No insomnia 10/07/2016 Constitutional No malaise 10/07/2016 Eyes No blindness 10/07/2016 Eyes No vision change 10/07/2016 Ears/Nose/Throat/Neck No dental pain Ears/Nose/Throat/Neck No dizziness 2016 Ears/Nose/Throat/Neck No dysphagia 2016 Ears/Nose/Throat/Neck No headache 2016 Ears/Nose/Throat/Neck No hearing loss Ears/Nose/Throat/Neck No nasal allergies 10/07/2016 Ears/Nose/Throat/Neck No sore throat Ears/Nose/Throat/Neck No postnasal drip 10/07/2016 Ears/Nose/Throat/Neck No sinus congestion 10/07/2016 Cardiovascular No chest pain/pressure Cardiovascular edema 10/07/2016 Cardiovascular exercise intolerance 10/07 Cardiovascular fatigue 10/07/2016 Cardiovascular No near-syncope/dizziness 10/07/2016 Respiratory No chest tightness 2016 Respiratory dyspnea on exertion 2016 Respiratory dyspnea 10/07/2016 Respiratory pedal edema 10/07/2016 Gastrointestinal No abdominal pain 2016 Gastrointestinal No constipation 2016 Gastrointestinal No diarrhea 10/07/2016 Gastrointestinal No gastroesophageal reflux 10/07/2016 Gastrointestinal No nausea 10/07/2016 Gastrointestinal No vomiting 10/07/2016 Genitourinary/Nephrology No dysuria 10/07 Genitourinary/Nephrology No nocturia Genitourinary/Nephrology No urinary incontinence 10/07/2016 Musculoskeletal stiffness 10/07/2016 Musculoskeletal No swelling 10/07/2016 Musculoskeletal No muscle weakness 2016 Musculoskeletal No myalgias 10/07/2016 Dermatologic No rash 10/07/2016 Dermatologic No sores 10/07/2016 Dermatologic No scar 10/07/2016 Neurologic No dizziness 10/07/2016 Neurologic No headache 10/07/2016 Neurologic No neck pain 10/07/2016 Neurologic No syncope 10/07/2016 Psychiatric No anxiety 10/07/2016 Psychiatric No depression 10/07/2016 Constitutional No recent illness 2016 Constitutional No chills 09/16/2016 Constitutional No fatigue 09/16/2016 Constitutional No fever 09/16/2016 Eyes No blindness 09/16/2016 Eyes No vision change 09/16/2016 Ears/Nose/Throat/Neck No nasal allergies 09/16/2016 Ears/Nose/Throat/Neck No nasal discharge 09/16/2016 Ears/Nose/Throat/Neck No postnasal drip 09/16/2016 Ears/Nose/Throat/Neck No sinus congestion 09/16/2016 Cardiovascular No chest pain/pressure Respiratory No cough 09/16/2016 Respiratory dyspnea on exertion 2016 Respiratory No dyspnea 09/16/2016 Gastrointestinal No abdominal pain 2016 Gastrointestinal No constipation 2016 Gastrointestinal No diarrhea 09/16/2016 Gastrointestinal No nausea 09/16/2016 Gastrointestinal No vomiting 09/16/2016 Dermatologic No sores 09/16/2016 Neurologic No alteration of consciousness 09/16/2016 Neurologic No mental status change 2016 Musculoskeletal joint complaint 2016 Dermatologic rash 09/16/2016 Constitutional No recent illness 2016 Constitutional No chills 09/07/2016 Constitutional No fatigue 09/07/2016 Constitutional No fever 09/07/2016 Eyes No eye erythema 09/07/2016 Eyes No vision change 09/07/2016 Ears/Nose/Throat/Neck No nasal allergies 09/07/2016 Ears/Nose/Throat/Neck No postnasal drip 09/07/2016 Ears/Nose/Throat/Neck No sinus congestion 09/07/2016 Cardiovascular No chest pain/pressure Respiratory dyspnea on exertion 2016 Respiratory No dyspnea 09/07/2016 Gastrointestinal No abdominal pain 2016 Gastrointestinal No constipation 2016 Gastrointestinal No diarrhea 09/07/2016 Gastrointestinal No nausea 09/07/2016 Gastrointestinal No vomiting 09/07/2016 Dermatologic No rash 09/07/2016 Dermatologic No sores 09/07/2016 Ears/Nose/Throat/Neck No nasal discharge 09/07/2016 Respiratory No cough 09/07/2016 Musculoskeletal joint complaint 2016 Neurologic No alteration of consciousness 09/07/2016 Neurologic No mental status change 2016 Constitutional No recent illness 2015 Constitutional No chills 03/05/2016 Constitutional No fatigue 03/05/2016 Constitutional No fever 03/05/2016 Constitutional No insomnia 03/05/2016 Constitutional No malaise 03/05/2016 Eyes No blindness 03/05/2016 Eyes No vision change 03/05/2016 Ears/Nose/Throat/Neck No dental pain 05/2016 Ears/Nose/Throat/Neck No dizziness 2015 Ears/Nose/Throat/Neck No dysphagia 2015 Ears/Nose/Throat/Neck No headache 2015 Ears/Nose/Throat/Neck No hearing loss 05/2016 Ears/Nose/Throat/Neck No nasal allergies 03/05/2016 Ears/Nose/Throat/Neck No postnasal drip 03/05/2016 Ears/Nose/Throat/Neck No sinus congestion 03/05/2016 Ears/Nose/Throat/Neck No sore throat 05/2016 Cardiovascular No chest pain/pressure 05/2016 Cardiovascular edema 03/05/2016 Cardiovascular exercise intolerance 03/05 Cardiovascular fatigue 03/05/2016 Cardiovascular No near-syncope/dizziness 03/05/2016 Respiratory No chest tightness 2015 Respiratory No cough 03/05/2016 Respiratory dyspnea on exertion 2015 Respiratory No dyspnea 03/05/2016 Respiratory No pedal edema 03/05/2016 Gastrointestinal No abdominal pain 2015 Gastrointestinal No constipation 2015 Gastrointestinal No diarrhea 03/05/2016 Gastrointestinal No gastroesophageal reflux 03/05/2016 Gastrointestinal No nausea 03/05/2016 Gastrointestinal No vomiting 03/05/2016 Genitourinary/Nephrology No dysuria 03/05 Genitourinary/Nephrology No nocturia 05/2016 Genitourinary/Nephrology No urinary incontinence 03/05/2016 Musculoskeletal stiffness 03/05/2016 Musculoskeletal No swelling 03/05/2016 Musculoskeletal back pain 03/05/2016 Musculoskeletal No muscle weakness 2015 Musculoskeletal No myalgias 03/05/2016 Dermatologic No rash 03/05/2016 Dermatologic No sores 03/05/2016 Dermatologic No scar 03/05/2016 Neurologic No dizziness 03/05/2016 Neurologic No headache 03/05/2016 Neurologic No neck pain 03/05/2016 Neurologic No syncope 03/05/2016 Psychiatric No anxiety 03/05/2016 Psychiatric No depression 03/05/2016 Constitutional No recent illness 2015 Constitutional No chills 12/04/2015 Constitutional No fatigue 12/04/2015 Constitutional No fever 12/04/2015 Constitutional No insomnia 12/04/2015 Constitutional No malaise 12/04/2015 Eyes No blindness 12/04/2015 Eyes No vision change 12/04/2015 Ears/Nose/Throat/Neck No dental pain 05/2016 Ears/Nose/Throat/Neck No dizziness 2015 Ears/Nose/Throat/Neck No dysphagia 2015 Ears/Nose/Throat/Neck No headache 2015 Ears/Nose/Throat/Neck No hearing loss 05/2016 Ears/Nose/Throat/Neck No nasal allergies 12/04/2015 Ears/Nose/Throat/Neck No postnasal drip 12/04/2015 Ears/Nose/Throat/Neck No sinus congestion 12/04/2015 Ears/Nose/Throat/Neck No sore throat 05/2016 Cardiovascular No chest pain/pressure 05/2016 Cardiovascular edema 12/04/2015 Cardiovascular exercise intolerance 12/03 Cardiovascular fatigue 12/04/2015 Cardiovascular No near-syncope/dizziness 12/04/2015 Respiratory No chest tightness 2015 Respiratory No cough 12/04/2015 Respiratory dyspnea on exertion 2015 Respiratory No dyspnea 12/04/2015 Respiratory No pedal edema 12/04/2015 Gastrointestinal No abdominal pain 2015 Gastrointestinal No constipation 2015 Gastrointestinal No diarrhea 12/04/2015 Gastrointestinal No gastroesophageal reflux 12/04/2015 Gastrointestinal No nausea 12/04/2015 Gastrointestinal No vomiting 12/04/2015 Genitourinary/Nephrology No dysuria 12/03 Genitourinary/Nephrology No nocturia 05/2016 Genitourinary/Nephrology No urinary incontinence 12/04/2015 Musculoskeletal stiffness 12/04/2015 Musculoskeletal No swelling 12/04/2015 Musculoskeletal back pain 12/04/2015 Musculoskeletal No muscle weakness 2015 Musculoskeletal No myalgias 12/04/2015 Dermatologic No rash 12/04/2015 Dermatologic No sores 12/04/2015 Dermatologic No scar 12/04/2015 Neurologic No dizziness 12/04/2015 Neurologic No headache 12/04/2015 Neurologic No neck pain 12/04/2015 Neurologic No syncope 12/04/2015 Psychiatric No anxiety 12/04/2015 Psychiatric No depression 12/04/2015 Constitutional No recent illness 2015 Constitutional No chills 11/18/2015 Constitutional No fatigue 11/18/2015 Constitutional No fever 11/18/2015 Constitutional No insomnia 11/18/2015 Constitutional No malaise 11/18/2015 Eyes No blindness 11/18/2015 Eyes No vision change 11/18/2015 Ears/Nose/Throat/Neck No dental pain Ears/Nose/Throat/Neck No dizziness 2015 Ears/Nose/Throat/Neck No dysphagia 2015 Ears/Nose/Throat/Neck No headache 2015 Ears/Nose/Throat/Neck No hearing loss Ears/Nose/Throat/Neck No nasal allergies 11/18/2015 Ears/Nose/Throat/Neck No postnasal drip 11/18/2015 Ears/Nose/Throat/Neck No sinus congestion 11/18/2015 Ears/Nose/Throat/Neck No sore throat Cardiovascular No chest pain/pressure Cardiovascular edema 11/18/2015 Cardiovascular exercise intolerance 11/17 Cardiovascular fatigue 11/18/2015 Cardiovascular No near-syncope/dizziness 11/18/2015 Respiratory No chest tightness 2015 Respiratory dyspnea on exertion 2015 Respiratory dyspnea 11/18/2015 Respiratory pedal edema 11/18/2015 Gastrointestinal No abdominal pain 2015 Gastrointestinal No constipation 2015 Gastrointestinal No diarrhea 11/18/2015 Gastrointestinal No gastroesophageal reflux 11/18/2015 Gastrointestinal No nausea 11/18/2015 Gastrointestinal No vomiting 11/18/2015 Genitourinary/Nephrology No dysuria 11/17 Genitourinary/Nephrology No nocturia Genitourinary/Nephrology No urinary incontinence 11/18/2015 Musculoskeletal stiffness 11/18/2015 Musculoskeletal No swelling 11/18/2015 Musculoskeletal No muscle weakness 2015 Musculoskeletal No myalgias 11/18/2015 Dermatologic No rash 11/18/2015 Dermatologic No sores 11/18/2015 Dermatologic No scar 11/18/2015 Neurologic No dizziness 11/18/2015 Neurologic No headache 11/18/2015 Neurologic No neck pain 11/18/2015 Neurologic No syncope 11/18/2015 Psychiatric No anxiety 11/18/2015 Psychiatric No depression 11/18/2015 Constitutional No recent illness 2015 Constitutional No chills 09/30/2015 Constitutional No fatigue 09/30/2015 Constitutional No fever 09/30/2015 Constitutional No insomnia 09/30/2015 Constitutional No malaise 09/30/2015 Eyes No blindness 09/30/2015 Eyes No vision change 09/30/2015 Ears/Nose/Throat/Neck No dental pain 01/2016 Ears/Nose/Throat/Neck No dizziness 2015 Ears/Nose/Throat/Neck No dysphagia 2015 Ears/Nose/Throat/Neck No headache 2015 Ears/Nose/Throat/Neck No hearing loss 01/2016 Ears/Nose/Throat/Neck No nasal allergies 09/30/2015 Ears/Nose/Throat/Neck No sore throat 01/2016 Ears/Nose/Throat/Neck No postnasal drip 09/30/2015 Ears/Nose/Throat/Neck No sinus congestion 09/30/2015 Cardiovascular No chest pain/pressure 01/2016 Cardiovascular edema 09/30/2015 Cardiovascular exercise intolerance 09/29 Cardiovascular fatigue 09/30/2015 Cardiovascular No near-syncope/dizziness 09/30/2015 Respiratory No chest tightness 2015 Respiratory No cough 09/30/2015 Respiratory No dyspnea 09/30/2015 Respiratory No pedal edema 09/30/2015 Gastrointestinal No abdominal pain 2015 Gastrointestinal No constipation 2015 Gastrointestinal No diarrhea 09/30/2015 Gastrointestinal No gastroesophageal reflux 09/30/2015 Gastrointestinal No nausea 09/30/2015 Gastrointestinal No vomiting 09/30/2015 Genitourinary/Nephrology No dysuria 09/29 Genitourinary/Nephrology No nocturia 01/2016 Genitourinary/Nephrology No urinary incontinence 09/30/2015 Musculoskeletal stiffness 09/30/2015 Musculoskeletal No swelling 09/30/2015 Musculoskeletal back pain 09/30/2015 Musculoskeletal No muscle weakness 2015 Musculoskeletal No myalgias 09/30/2015 Dermatologic No rash 09/30/2015 Dermatologic No sores 09/30/2015 Dermatologic No scar 09/30/2015 Neurologic No dizziness 09/30/2015 Neurologic No headache 09/30/2015 Neurologic No neck pain 09/30/2015 Neurologic No syncope 09/30/2015 Psychiatric No anxiety 09/30/2015 Psychiatric No depression 09/30/2015 Respiratory dyspnea on exertion 2015 Constitutional No recent illness 2015 Constitutional No anorexia 09/09/2015 Constitutional No night sweats 2015 Constitutional No chills 09/09/2015 Constitutional No diaphoresis 09/09/2015 Constitutional No fatigue 09/09/2015 Constitutional No fever 09/09/2015 Constitutional No insomnia 09/09/2015 Constitutional No malaise 09/09/2015 Constitutional No weight loss 09/09/2015 Constitutional No weight gain 09/09/2015 Constitutional No recent illness 2015 Dermatologic rash 08/28/2015 Dermatologic sores 08/28/2015 Cardiovascular No chest pain/pressure 09/2015 Cardiovascular No dyspnea 08/28/2015 Cardiovascular No edema 08/28/2015 Cardiovascular No exercise intolerance Cardiovascular No fatigue 08/28/2015 Cardiovascular No near-syncope/dizziness 08/28/2015 Respiratory No chest tightness 2015 Respiratory No cigarette smoking 2015 Respiratory No cough 08/28/2015 Respiratory No dyspnea 08/28/2015 Respiratory No pedal edema 08/28/2015 Respiratory No snoring 08/28/2015 Respiratory No wheezing 08/28/2015 Constitutional No recent illness 2014 Constitutional No chills 07/09/2015 Constitutional No fatigue 07/09/2015 Constitutional No fever 07/09/2015 Constitutional No insomnia 07/09/2015 Constitutional No malaise 07/09/2015 Eyes No blindness 07/09/2015 Eyes No vision change 07/09/2015 Ears/Nose/Throat/Neck No dental pain Ears/Nose/Throat/Neck No dizziness 2014 Ears/Nose/Throat/Neck No dysphagia 2014 Ears/Nose/Throat/Neck No headache 2014 Ears/Nose/Throat/Neck No hearing loss Ears/Nose/Throat/Neck No nasal allergies 07/09/2015 Ears/Nose/Throat/Neck No sore throat Ears/Nose/Throat/Neck No postnasal drip 07/09/2015 Ears/Nose/Throat/Neck No sinus congestion 07/09/2015 Cardiovascular No chest pain/pressure Cardiovascular No dyspnea 07/09/2015 Cardiovascular No edema 07/09/2015 Cardiovascular No exercise intolerance Cardiovascular No fatigue 07/09/2015 Cardiovascular No near-syncope/dizziness 07/09/2015 Respiratory No chest tightness 2014 Respiratory No cough 07/09/2015 Respiratory No dyspnea 07/09/2015 Respiratory No pedal edema 07/09/2015 Gastrointestinal No abdominal pain 2014 Gastrointestinal No constipation 2014 Gastrointestinal No diarrhea 07/09/2015 Gastrointestinal No gastroesophageal reflux 07/09/2015 Gastrointestinal No nausea 07/09/2015 Gastrointestinal No vomiting 07/09/2015 Genitourinary/Nephrology No dysuria 07/09 Genitourinary/Nephrology No nocturia Genitourinary/Nephrology No urinary incontinence 07/09/2015 Musculoskeletal stiffness 07/09/2015 Musculoskeletal No swelling 07/09/2015 Musculoskeletal back pain 07/09/2015 Musculoskeletal No muscle weakness 2014 Musculoskeletal No myalgias 07/09/2015 Dermatologic No rash 07/09/2015 Dermatologic No sores 07/09/2015 Dermatologic No scar 07/09/2015 Neurologic No dizziness 07/09/2015 Neurologic No headache 07/09/2015 Neurologic No neck pain 07/09/2015 Neurologic No syncope 07/09/2015 Psychiatric No anxiety 07/09/2015 Psychiatric No depression 07/09/2015 Constitutional No recent illness 2014 Constitutional No chills 03/06/2015 Constitutional No fatigue 03/06/2015 Constitutional No fever 03/06/2015 Constitutional No insomnia 03/06/2015 Constitutional No malaise 03/06/2015 Eyes No blindness 03/06/2015 Eyes No vision change 03/06/2015 Ears/Nose/Throat/Neck No dental pain 06/2015 Ears/Nose/Throat/Neck No dizziness 2014 Ears/Nose/Throat/Neck No dysphagia 2014 Ears/Nose/Throat/Neck No headache 2014 Ears/Nose/Throat/Neck No hearing loss 06/2015 Ears/Nose/Throat/Neck No nasal allergies 03/06/2015 Ears/Nose/Throat/Neck No sore throat 06/2015 Ears/Nose/Throat/Neck No postnasal drip 03/06/2015 Ears/Nose/Throat/Neck No sinus congestion 03/06/2015 Cardiovascular No chest pain/pressure 06/2015 Cardiovascular No dyspnea 03/06/2015 Cardiovascular No edema 03/06/2015 Cardiovascular No exercise intolerance Cardiovascular No fatigue 03/06/2015 Cardiovascular No near-syncope/dizziness 03/06/2015 Respiratory No chest tightness 2014 Respiratory No cough 03/06/2015 Respiratory No dyspnea 03/06/2015 Respiratory No pedal edema 03/06/2015 Gastrointestinal No abdominal pain 2014 Gastrointestinal No constipation 2014 Gastrointestinal No diarrhea 03/06/2015 Gastrointestinal No gastroesophageal reflux 03/06/2015 Gastrointestinal No nausea 03/06/2015 Gastrointestinal No vomiting 03/06/2015 Genitourinary/Nephrology No dysuria 03/06 Genitourinary/Nephrology No nocturia 06/2015 Genitourinary/Nephrology No urinary incontinence 03/06/2015 Musculoskeletal stiffness 03/06/2015 Musculoskeletal No swelling 03/06/2015 Musculoskeletal No muscle weakness 2014 Musculoskeletal No myalgias 03/06/2015 Dermatologic No rash 03/06/2015 Dermatologic No sores 03/06/2015 Dermatologic No scar 03/06/2015 Neurologic No dizziness 03/06/2015 Neurologic No headache 03/06/2015 Neurologic No neck pain 03/06/2015 Neurologic No syncope 03/06/2015 Psychiatric No anxiety 03/06/2015 Psychiatric No depression 03/06/2015 Musculoskeletal back pain 03/06/2015 Physical Exam Exam Name System Name Item Name Status Result Effective Dates Notes Full Exam - General 1994 Constitutional general appearance Development: well developed 08/23/2017 None Full Exam - General 1994 Constitutional general appearance Development: appears stated age 0108/23/2017 None Full Exam - General 1994 Constitutional general appearance Hygiene/Attention to Grooming: good hygiene 08/23/2017 None Full Exam - General 1994 Eyes conjunctiva /eyelids Overall: conjunctiva clear 08/23/2017 None Full Exam - General 1994 Eyes conjunctiva /eyelids Overall: cornea clear 08/23/2017 None Full Exam - General 1994 Eyes conjunctiva /eyelids Overall: eyelids normal 08/23/2017 None Full Exam - General 1994 Eyes pupils and irises Overall: pupils equal, round, reactive to light and accomodation 08/23/2017 None Full Exam - General 1994 Ears/Nose/Throat otoscopic exam Overall: external auditory canals clear 08/23/2017 None Full Exam - General 1994 Ears/Nose/Throat otoscopic exam Overall: tympanic membranes clear 08/23/2017 None Full Exam - General 1994 Ears/Nose/Throat lips/teeth/gingiva Overall: benign lips 08/23/2017 None Full Exam - General 1994 Ears/Nose/Throat lips/teeth/gingiva Overall: normal dentition 08/23/2017 None Full Exam - General 1994 Ears/Nose/Throat oral cavity/pharynx/larynx Overall: oral mucosa clear 08/23/2017 None Full Exam - General 1994 Ears/Nose/Throat oral cavity/pharynx/larynx Overall: oropharyngeal mucosa clear 08/23/2017 None Full Exam - General 1994 Ears/Nose/Throat oral cavity/pharynx/larynx Overall: hypopharynx benign 08/23/2017 None Full Exam - General 1994 Ears/Nose/Throat oral cavity/pharynx/larynx Overall: no masses 08/23/2017 None Full Exam - General 1994 Respiratory auscultation Overall: breath sounds clear bilaterally 08/23/2017 None Full Exam - General 1994 Respiratory respiratory effort/rhythm Overall: no retractions 08/23/2017 None Full Exam - General 1994 Respiratory respiratory effort/rhythm Overall: normal rate 08/23/2017 None Full Exam - General 1994 Cardiovascular extremities Overall: no clubbing 08/23/2017 None Full Exam - General 1994 Cardiovascular auscultation of heart Rate: tachycardia 08/23/2017 None Full Exam - General 1994 Cardiovascular auscultation of heart Rhythm: irregularly irregular rhythm 08/23/2017 None Full Exam - General 1994 Abdomen abdominal exam Overall: no tenderness 08/23/2017 None Full Exam - General 1994 Abdomen abdominal exam Overall: normal bowel sounds 08/23/2017 None Full Exam - General 1994 Musculoskeletal spine, ribs and pelvis Overall: spine benign 08/23/2017 None Full Exam - General 1994 Musculoskeletal spine, ribs and pelvis Overall: sacroiliac joint benign 08/23/2017 None Full Exam - General 1994 Musculoskeletal spine, ribs and pelvis Overall: good posture 08/23/2017 None Full Exam - General 1994 Musculoskeletal head and neck Overall: head atraumatic 08/23/2017 None Full Exam - General 1994 Musculoskeletal head and neck Overall: cervical spine benign 08/23/2017 None Full Exam - General 1994 Neurologic cranial nerves Overall: crainial nerves 2 - 12 grossly intact 08/23/2017 None Full Exam - General 1994 Psychiatric orientation/consciousness Overall: oriented to person, place and time 08/23/2017 None Full Exam - General 1994 Psychiatric mood and affect Overall: normal mood and affect 08/23/2017 None Full Exam - General 1994 Constitutional general appearance Overall: well developed 02/03/2017 None Full Exam - General 1994 Constitutional general appearance Overall: well nourished 02/03/2017 None Full Exam - General 1994 Constitutional general appearance Overall: in no acute distress 02/03/2017 None Full Exam - General 1994 Eyes conjunctiva /eyelids Overall: conjunctiva clear 02/03/2017 None Full Exam - General 1994 Eyes conjunctiva /eyelids Overall: eyelids normal 02/03/2017 None Full Exam - General 1994 Ears/Nose/Throat lips/teeth/gingiva Overall: benign lips 02/03/2017 None Full Exam - General 1994 Ears/Nose/Throat oral cavity/pharynx/larynx Overall: oral mucosa clear 02/03/2017 None Full Exam - General 1994 Respiratory respiratory effort/rhythm Overall: no retractions 02/03/2017 None Full Exam - General 1994 Respiratory respiratory effort/rhythm Overall: normal rate 02/03/2017 None Full Exam - General 1994 Musculoskeletal head and neck Overall: head atraumatic 02/03/2017 None Full Exam - General 1994 Musculoskeletal gait and station Overall: normal gait 02/03/2017 None Full Exam - General 1994 Musculoskeletal gait and station Overall: normal station 02/03/2017 None Full Exam - General 1994 Neurologic cranial nerves Overall: crainial nerves 2 - 12 grossly intact 02/03/2017 None Full Exam - General 1994 Psychiatric orientation/consciousness Overall: oriented to person, place and time 02/03/2017 None Full Exam - General 1994 Psychiatric mood and affect Overall: normal mood and affect 02/03/2017 None Full Exam - General 1994 Psychiatric mood and affect Mood: flat 02/03/2017 None Full Exam - General 1994 Psychiatric appearance Overall: well-groomed, good eye contact 02/03/2017 None Full Exam - General 1994 Constitutional general appearance Development: well developed 02/02/2017 None Full Exam - General 1994 Constitutional general appearance Development: appears stated age 0702/02/2017 None Full Exam - General 1994 Constitutional general appearance Hygiene/Attention to Grooming: good hygiene 02/02/2017 None Full Exam - General 1994 Eyes conjunctiva /eyelids Overall: conjunctiva clear 02/02/2017 None Full Exam - General 1994 Eyes conjunctiva /eyelids Overall: cornea clear 02/02/2017 None Full Exam - General 1994 Eyes conjunctiva /eyelids Overall: eyelids normal 02/02/2017 None Full Exam - General 1994 Eyes pupils and irises Overall: pupils equal, round, reactive to light and accomodation 02/02/2017 None Full Exam - General 1994 Ears/Nose/Throat otoscopic exam Overall: external auditory canals clear 02/02/2017 None Full Exam - General 1994 Ears/Nose/Throat otoscopic exam Overall: tympanic membranes clear 02/02/2017 None Full Exam - General 1994 Ears/Nose/Throat lips/teeth/gingiva Overall: benign lips 02/02/2017 None Full Exam - General 1994 Ears/Nose/Throat lips/teeth/gingiva Overall: normal dentition 02/02/2017 None Full Exam - General 1994 Ears/Nose/Throat oral cavity/pharynx/larynx Overall: oral mucosa clear 02/02/2017 None Full Exam - General 1994 Ears/Nose/Throat oral cavity/pharynx/larynx Overall: oropharyngeal mucosa clear 02/02/2017 None Full Exam - General 1994 Ears/Nose/Throat oral cavity/pharynx/larynx Overall: hypopharynx benign 02/02/2017 None Full Exam - General 1994 Ears/Nose/Throat oral cavity/pharynx/larynx Overall: no masses 02/02/2017 None Full Exam - General 1994 Respiratory auscultation Overall: breath sounds clear bilaterally 02/02/2017 None Full Exam - General 1994 Respiratory respiratory effort/rhythm Overall: no retractions 02/02/2017 None Full Exam - General 1994 Respiratory respiratory effort/rhythm Overall: normal rate 02/02/2017 None Full Exam - General 1994 Cardiovascular extremities Overall: no clubbing 02/02/2017 None Full Exam - General 1994 Abdomen abdominal exam Overall: no tenderness 02/02/2017 None Full Exam - General 1994 Abdomen abdominal exam Overall: normal bowel sounds 02/02/2017 None Full Exam - General 1994 Lymphatic neck nodes Overall: anterior cervical chain benign 02/02/2017 None Full Exam - General 1994 Lymphatic neck nodes Overall: posterior cervical chain benign 02/02/2017 None Full Exam - General 1994 Musculoskeletal spine, ribs and pelvis Overall: spine benign 02/02/2017 None Full Exam - General 1994 Musculoskeletal spine, ribs and pelvis Overall: sacroiliac joint benign 02/02/2017 None Full Exam - General 1994 Musculoskeletal spine, ribs and pelvis Overall: good posture 02/02/2017 None Full Exam - General 1994 Musculoskeletal head and neck Overall: head atraumatic 02/02/2017 None Full Exam - General 1994 Musculoskeletal head and neck Overall: cervical spine benign 02/02/2017 None Full Exam - General 1994 Integument inspection of skin Overall: few scattered moles, no gross abnormalities 02/02/2017 None Full Exam - General 1994 Neurologic deep tendon reflexes Overall: deep tendon reflexes intact 02/02/2017 None Full Exam - General 1994 Neurologic cranial nerves Overall: crainial nerves 2 - 12 grossly intact 02/02/2017 None Full Exam - General 1994 Psychiatric orientation/consciousness Overall: oriented to person, place and time 02/02/2017 None Full Exam - General 1994 Psychiatric mood and affect Overall: normal mood and affect 02/02/2017 None Full Exam - General 1994 Cardiovascular auscultation of heart Rate: tachycardia 02/02/2017 None Full Exam - General 1994 Cardiovascular auscultation of heart Rhythm: irregularly irregular rhythm 02/02/2017 None Full Exam - ENT Constitutional general appearance Overall: well nourished 11/26/2016 None Full Exam - ENT Constitutional general appearance Overall: well developed 11/26/2016 None Full Exam - ENT Constitutional general appearance Overall: in no acute distress 11/26/2016 None Full Exam - ENT Ears/Nose/Throat otoscopic exam Overall: external auditory canals normal 11/26/2016 None Full Exam - ENT Ears/Nose/Throat lips/ teeth/gingiva Overall: benign lips 11/26/2016 None Full Exam - ENT Ears/Nose/Throat oropharynx Overall: oral mucosa clear 11/26/2016 None Full Exam - ENT Ears/Nose/Throat oropharynx Posterior Pharynx: clear post nasal drainage 11/26/2016 None Full Exam - ENT Ears/Nose/Throat oropharynx Posterior Pharynx: erythema 11/26/2016 None Full Exam - ENT Respiratory inspection Overall: no retractions 11/26/2016 None Full Exam - ENT Respiratory inspection Overall: normal rate 10/2016 None Full Exam - ENT Cardiovascular auscultation of heart Rate: normal rate 11/26/2016 None Full Exam - ENT Cardiovascular auscultation of heart Rhythm: regular rhythm 11/26/2016 None Full Exam - ENT Lymphatic palpation of lymph nodes Overall: anterior cervical chain benign 11/26/2016 None Full Exam - ENT Lymphatic palpation of lymph nodes Overall: posterior cervical chain benign 11/26/2016 None Full Exam - ENT Neurologic mood and affect Overall: normal mood 11/26/2016 None Full Exam - ENT Neurologic mood and affect Overall: normal affect 11/26/2016 None Full Exam - ENT Neurologic orientation Overall: oriented to person, place and time 11/26/2016 None Full Exam - ENT Ears/Nose/Throat otoscopic exam Left tympanic membrane: air -fluid level 11/26/2016 None Full Exam - ENT Ears/Nose/Throat otoscopic exam Right tympanic membrane: retracted 11/26/2016 None Full Exam - ENT Respiratory auscultation Diffuse: diminished None Full Exam - General 1994 Constitutional general appearance Development: well developed 10/07/2016 None Full Exam - General 1994 Constitutional general appearance Development: appears stated age 0310/07/2016 None Full Exam - General 1994 Constitutional general appearance Hygiene/Attention to Grooming: good hygiene 10/07/2016 None Full Exam - General 1994 Eyes conjunctiva /eyelids Overall: conjunctiva clear 10/07/2016 None Full Exam - General 1994 Eyes conjunctiva /eyelids Overall: cornea clear 10/07/2016 None Full Exam - General 1994 Eyes conjunctiva /eyelids Overall: eyelids normal 10/07/2016 None Full Exam - General 1994 Eyes pupils and irises Overall: pupils equal, round, reactive to light and accomodation 10/07/2016 None Full Exam - General 1994 Ears/Nose/Throat otoscopic exam Overall: external auditory canals clear 10/07/2016 None Full Exam - General 1994 Ears/Nose/Throat otoscopic exam Overall: tympanic membranes clear 10/07/2016 None Full Exam - General 1994 Ears/Nose/Throat lips/teeth/gingiva Overall: benign lips 10/07/2016 None Full Exam - General 1994 Ears/Nose/Throat lips/teeth/gingiva Overall: normal dentition 10/07/2016 None Full Exam - General 1994 Ears/Nose/Throat oral cavity/pharynx/larynx Overall: oral mucosa clear 10/07/2016 None Full Exam - General 1994 Ears/Nose/Throat oral cavity/pharynx/larynx Overall: oropharyngeal mucosa clear 10/07/2016 None Full Exam - General 1994 Ears/Nose/Throat oral cavity/pharynx/larynx Overall: hypopharynx benign 10/07/2016 None Full Exam - General 1994 Ears/Nose/Throat oral cavity/pharynx/larynx Overall: no masses 10/07/2016 None Full Exam - General 1994 Respiratory auscultation Overall: breath sounds clear bilaterally 10/07/2016 None Full Exam - General 1994 Respiratory respiratory effort/rhythm Overall: no retractions 10/07/2016 None Full Exam - General 1994 Respiratory respiratory effort/rhythm Overall: normal rate 10/07/2016 None Full Exam - General 1994 Cardiovascular extremities Overall: no clubbing 10/07/2016 None Full Exam - General 1994 Cardiovascular auscultation of heart Overall: regular rate 10/07/2016 None Full Exam - General 1994 Cardiovascular auscultation of heart Overall: normal heart sounds 10/07/2016 None Full Exam - General 1994 Abdomen abdominal exam Overall: no tenderness 10/07/2016 None Full Exam - General 1994 Abdomen abdominal exam Overall: normal bowel sounds 10/07/2016 None Full Exam - General 1994 Lymphatic neck nodes Overall: anterior cervical chain benign 10/07/2016 None Full Exam - General 1994 Lymphatic neck nodes Overall: posterior cervical chain benign 10/07/2016 None Full Exam - General 1994 Musculoskeletal spine, ribs and pelvis Overall: spine benign 10/07/2016 None Full Exam - General 1994 Musculoskeletal spine, ribs and pelvis Overall: sacroiliac joint benign 10/07/2016 None Full Exam - General 1994 Musculoskeletal spine, ribs and pelvis Overall: good posture 10/07/2016 None Full Exam - General 1994 Musculoskeletal head and neck Overall: head atraumatic 10/07/2016 None Full Exam - General 1994 Musculoskeletal head and neck Overall: cervical spine benign 10/07/2016 None Full Exam - General 1994 Integument inspection of skin Overall: few scattered moles, no gross abnormalities 10/07/2016 None Full Exam - General 1994 Neurologic deep tendon reflexes Overall: deep tendon reflexes intact 10/07/2016 None Full Exam - General 1994 Neurologic cranial nerves Overall: crainial nerves 2 - 12 grossly intact 10/07/2016 None Full Exam - General 1994 Psychiatric orientation/consciousness Overall: oriented to person, place and time 10/07/2016 None Full Exam - General 1994 Psychiatric mood and affect Overall: normal mood and affect 10/07/2016 None Full Exam - General 1994 Constitutional general appearance Overall: well developed 09/16/2016 None Full Exam - General 1994 Constitutional general appearance Overall: in no acute distress 09/16/2016 None Full Exam - General 1994 Constitutional general appearance Overall: well nourished 09/16/2016 None Full Exam - General 1994 Constitutional general appearance Hygiene/Attention to Grooming: good hygiene 09/16/2016 None Full Exam - General 1994 Eyes conjunctiva /eyelids Overall: conjunctiva clear 09/16/2016 None Full Exam - General 1994 Eyes conjunctiva /eyelids Overall: eyelids normal 09/16/2016 None Full Exam - General 1994 Eyes pupils and irises Overall: pupils equal, round, reactive to light and accomodation 09/16/2016 None Full Exam - General 1994 Ears/Nose/Throat lips/teeth/gingiva Overall: benign lips 09/16/2016 None Full Exam - General 1994 Ears/Nose/Throat lips/teeth/gingiva Overall: normal dentition 09/16/2016 None Full Exam - General 1994 Ears/Nose/Throat oral cavity/pharynx/larynx Overall: oral mucosa clear 09/16/2016 None Full Exam - General 1994 Ears/Nose/Throat oral cavity/pharynx/larynx Overall: no masses 09/16/2016 None Full Exam - General 1994 Respiratory auscultation Overall: breath sounds clear bilaterally 09/16/2016 None Full Exam - General 1994 Respiratory respiratory effort/rhythm Overall: no retractions 09/16/2016 None Full Exam - General 1994 Respiratory respiratory effort/rhythm Overall: normal rate 09/16/2016 None Full Exam - General 1994 Cardiovascular extremities Overall: no clubbing 09/16/2016 None Full Exam - General 1994 Cardiovascular auscultation of heart Overall: regular rate 09/16/2016 None Full Exam - General 1994 Cardiovascular auscultation of heart Overall: normal heart sounds 09/16/2016 None Full Exam - General 1994 Lymphatic neck nodes Overall: anterior cervical chain benign 09/16/2016 None Full Exam - General 1994 Lymphatic neck nodes Overall: posterior cervical chain benign 09/16/2016 None Full Exam - General 1994 Musculoskeletal lower extremity ROM - knee: pain with flexion 09/16/2016 None Full Exam - General 1994 Musculoskeletal lower extremity Inspection - lower leg: normal appearance 09/16/2016 pain deep in calf Full Exam - General 1994 Musculoskeletal spine, ribs and pelvis Overall: good posture 09/16/2016 None Full Exam - General 1994 Musculoskeletal head and neck Overall: head atraumatic 09/16/2016 None Full Exam - General 1994 Neurologic cranial nerves Overall: crainial nerves 2 - 12 grossly intact 09/16/2016 None Full Exam - General 1994 Psychiatric orientation/consciousness Overall: oriented to person, place and time 09/16/2016 None Full Exam - General 1994 Psychiatric mood and affect Overall: normal mood and affect 09/16/2016 None Full Exam - General 1994 Psychiatric appearance Overall: well-groomed, good eye contact 09/16/2016 None Full Exam - General 1994 Integument inspection of skin Pigmentation: erythematous 09/16/2016 under breasts and in lower abdominal fold Full Exam - General 1994 Constitutional general appearance Hygiene/Attention to Grooming: good hygiene 09/07/2016 None Full Exam - General 1994 Eyes conjunctiva /eyelids Overall: conjunctiva clear 09/07/2016 None Full Exam - General 1994 Eyes conjunctiva /eyelids Overall: eyelids normal 09/07/2016 None Full Exam - General 1994 Eyes pupils and irises Overall: pupils equal, round, reactive to light and accomodation 09/07/2016 None Full Exam - General 1994 Ears/Nose/Throat lips/teeth/gingiva Overall: benign lips 09/07/2016 None Full Exam - General 1994 Ears/Nose/Throat lips/teeth/gingiva Overall: normal dentition 09/07/2016 None Full Exam - General 1994 Ears/Nose/Throat oral cavity/pharynx/larynx Overall: oral mucosa clear 09/07/2016 None Full Exam - General 1994 Ears/Nose/Throat oral cavity/pharynx/larynx Overall: no masses 09/07/2016 None Full Exam - General 1994 Respiratory auscultation Overall: breath sounds clear bilaterally 09/07/2016 None Full Exam - General 1994 Respiratory respiratory effort/rhythm Overall: no retractions 09/07/2016 None Full Exam - General 1994 Respiratory respiratory effort/rhythm Overall: normal rate 09/07/2016 None Full Exam - General 1994 Cardiovascular extremities Overall: no clubbing 09/07/2016 None Full Exam - General 1994 Cardiovascular auscultation of heart Overall: regular rate 09/07/2016 None Full Exam - General 1994 Cardiovascular auscultation of heart Overall: normal heart sounds 09/07/2016 None Full Exam - General 1994 Lymphatic neck nodes Overall: anterior cervical chain benign 09/07/2016 None Full Exam - General 1994 Lymphatic neck nodes Overall: posterior cervical chain benign 09/07/2016 None Full Exam - General 1994 Musculoskeletal spine, ribs and pelvis Overall: good posture 09/07/2016 None Full Exam - General 1994 Musculoskeletal head and neck Overall: head atraumatic 09/07/2016 None Full Exam - General 1994 Neurologic cranial nerves Overall: crainial nerves 2 - 12 grossly intact 09/07/2016 None Full Exam - General 1994 Psychiatric orientation/consciousness Overall: oriented to person, place and time 09/07/2016 None Full Exam - General 1994 Psychiatric mood and affect Overall: normal mood and affect 09/07/2016 None Full Exam - General 1994 Constitutional general appearance Overall: well developed 09/07/2016 None Full Exam - General 1994 Constitutional general appearance Overall: well nourished 09/07/2016 None Full Exam - General 1994 Constitutional general appearance Overall: in no acute distress 09/07/2016 None Full Exam - General 1994 Musculoskeletal lower extremity ROM - knee: pain with flexion 09/07/2016 None Full Exam - General 1994 Musculoskeletal lower extremity Inspection - lower leg: normal appearance 09/07/2016 pain deep in calf Full Exam - General 1994 Psychiatric appearance Overall: well-groomed, good eye contact 09/07/2016 None Full Exam - General 1994 Constitutional general appearance Development: well developed 03/05/2016 None Full Exam - General 1994 Constitutional general appearance Development: appears stated age 0803/05/2016 None Full Exam - General 1994 Constitutional general appearance Hygiene/Attention to Grooming: good hygiene 03/05/2016 None Full Exam - General 1994 Eyes conjunctiva /eyelids Overall: conjunctiva clear 03/05/2016 None Full Exam - General 1994 Eyes conjunctiva /eyelids Overall: cornea clear 03/05/2016 None Full Exam - General 1994 Eyes conjunctiva /eyelids Overall: eyelids normal 03/05/2016 None Full Exam - General 1994 Eyes pupils and irises Overall: pupils equal, round, reactive to light and accomodation 03/05/2016 None Full Exam - General 1994 Ears/Nose/Throat otoscopic exam Overall: external auditory canals clear 03/05/2016 None Full Exam - General 1994 Ears/Nose/Throat otoscopic exam Overall: tympanic membranes clear 03/05/2016 None Full Exam - General 1994 Ears/Nose/Throat lips/teeth/gingiva Overall: benign lips 03/05/2016 None Full Exam - General 1994 Ears/Nose/Throat lips/teeth/gingiva Overall: normal dentition 03/05/2016 None Full Exam - General 1994 Ears/Nose/Throat oral cavity/pharynx/larynx Overall: oral mucosa clear 03/05/2016 None Full Exam - General 1994 Ears/Nose/Throat oral cavity/pharynx/larynx Overall: oropharyngeal mucosa clear 03/05/2016 None Full Exam - General 1994 Ears/Nose/Throat oral cavity/pharynx/larynx Overall: hypopharynx benign 03/05/2016 None Full Exam - General 1994 Ears/Nose/Throat oral cavity/pharynx/larynx Overall: no masses 03/05/2016 None Full Exam - General 1994 Respiratory auscultation Overall: breath sounds clear bilaterally 03/05/2016 None Full Exam - General 1994 Respiratory respiratory effort/rhythm Overall: no retractions 03/05/2016 None Full Exam - General 1994 Respiratory respiratory effort/rhythm Overall: normal rate 03/05/2016 None Full Exam - General 1994 Cardiovascular extremities Overall: no clubbing 03/05/2016 None Full Exam - General 1994 Cardiovascular auscultation of heart Overall: regular rate 03/05/2016 None Full Exam - General 1994 Cardiovascular auscultation of heart Overall: normal heart sounds 03/05/2016 None Full Exam - General 1994 Abdomen abdominal exam Overall: no tenderness 03/05/2016 None Full Exam - General 1994 Abdomen abdominal exam Overall: normal bowel sounds 03/05/2016 None Full Exam - General 1994 Lymphatic neck nodes Overall: anterior cervical chain benign 03/05/2016 None Full Exam - General 1994 Lymphatic neck nodes Overall: posterior cervical chain benign 03/05/2016 None Full Exam - General 1994 Musculoskeletal spine, ribs and pelvis Overall: spine benign 03/05/2016 None Full Exam - General 1994 Musculoskeletal spine, ribs and pelvis Overall: sacroiliac joint benign 03/05/2016 None Full Exam - General 1994 Musculoskeletal spine, ribs and pelvis Overall: good posture 03/05/2016 None Full Exam - General 1994 Musculoskeletal head and neck Overall: head atraumatic 03/05/2016 None Full Exam - General 1994 Musculoskeletal head and neck Overall: cervical spine benign 03/05/2016 None Full Exam - General 1994 Integument inspection of skin Overall: few scattered moles, no gross abnormalities 03/05/2016 None Full Exam - General 1994 Neurologic deep tendon reflexes Overall: deep tendon reflexes intact 03/05/2016 None Full Exam - General 1994 Neurologic cranial nerves Overall: crainial nerves 2 - 12 grossly intact 03/05/2016 None Full Exam - General 1994 Psychiatric orientation/consciousness Overall: oriented to person, place and time 03/05/2016 None Full Exam - General 1994 Psychiatric mood and affect Overall: normal mood and affect 03/05/2016 None Full Exam - General 1994 Constitutional general appearance Development: well developed 12/04/2015 None Full Exam - General 1994 Constitutional general appearance Development: appears stated age 0512/04/2015 None Full Exam - General 1994 Constitutional general appearance Hygiene/Attention to Grooming: good hygiene 12/04/2015 None Full Exam - General 1994 Eyes conjunctiva /eyelids Overall: conjunctiva clear 12/04/2015 None Full Exam - General 1994 Eyes conjunctiva /eyelids Overall: cornea clear 12/04/2015 None Full Exam - General 1994 Eyes conjunctiva /eyelids Overall: eyelids normal 12/04/2015 None Full Exam - General 1994 Eyes pupils and irises Overall: pupils equal, round, reactive to light and accomodation 12/04/2015 None Full Exam - General 1994 Ears/Nose/Throat otoscopic exam Overall: external auditory canals clear 12/04/2015 None Full Exam - General 1994 Ears/Nose/Throat otoscopic exam Overall: tympanic membranes clear 12/04/2015 None Full Exam - General 1994 Ears/Nose/Throat lips/teeth/gingiva Overall: benign lips 12/04/2015 None Full Exam - General 1994 Ears/Nose/Throat lips/teeth/gingiva Overall: normal dentition 12/04/2015 None Full Exam - General 1994 Ears/Nose/Throat oral cavity/pharynx/larynx Overall: oral mucosa clear 12/04/2015 None Full Exam - General 1994 Ears/Nose/Throat oral cavity/pharynx/larynx Overall: oropharyngeal mucosa clear 12/04/2015 None Full Exam - General 1994 Ears/Nose/Throat oral cavity/pharynx/larynx Overall: hypopharynx benign 12/04/2015 None Full Exam - General 1994 Ears/Nose/Throat oral cavity/pharynx/larynx Overall: no masses 12/04/2015 None Full Exam - General 1994 Respiratory auscultation Overall: breath sounds clear bilaterally 12/04/2015 None Full Exam - General 1994 Respiratory respiratory effort/rhythm Overall: no retractions 12/04/2015 None Full Exam - General 1994 Respiratory respiratory effort/rhythm Overall: normal rate 12/04/2015 None Full Exam - General 1994 Cardiovascular extremities Overall: no clubbing 12/04/2015 None Full Exam - General 1994 Cardiovascular auscultation of heart Overall: regular rate 12/04/2015 None Full Exam - General 1994 Cardiovascular auscultation of heart Overall: normal heart sounds 12/04/2015 None Full Exam - General 1994 Abdomen abdominal exam Overall: no tenderness 12/04/2015 None Full Exam - General 1994 Abdomen abdominal exam Overall: normal bowel sounds 12/04/2015 None Full Exam - General 1994 Lymphatic neck nodes Overall: anterior cervical chain benign 12/04/2015 None Full Exam - General 1994 Lymphatic neck nodes Overall: posterior cervical chain benign 12/04/2015 None Full Exam - General 1994 Musculoskeletal spine, ribs and pelvis Overall: spine benign 12/04/2015 None Full Exam - General 1994 Musculoskeletal spine, ribs and pelvis Overall: sacroiliac joint benign 12/04/2015 None Full Exam - General 1994 Musculoskeletal spine, ribs and pelvis Overall: good posture 12/04/2015 None Full Exam - General 1994 Musculoskeletal head and neck Overall: head atraumatic 12/04/2015 None Full Exam - General 1994 Musculoskeletal head and neck Overall: cervical spine benign 12/04/2015 None Full Exam - General 1994 Integument inspection of skin Overall: few scattered moles, no gross abnormalities 12/04/2015 None Full Exam - General 1994 Neurologic deep tendon reflexes Overall: deep tendon reflexes intact 12/04/2015 None Full Exam - General 1994 Neurologic cranial nerves Overall: crainial nerves 2 - 12 grossly intact 12/04/2015 None Full Exam - General 1994 Psychiatric orientation/consciousness Overall: oriented to person, place and time 12/04/2015 None Full Exam - General 1994 Psychiatric mood and affect Overall: normal mood and affect 12/04/2015 None Full Exam - General 1994 Constitutional general appearance Development: well developed 11/18/2015 None Full Exam - General 1994 Constitutional general appearance Development: appears stated age 0411/18/2015 None Full Exam - General 1994 Constitutional general appearance Hygiene/Attention to Grooming: good hygiene 11/18/2015 None Full Exam - General 1994 Eyes conjunctiva /eyelids Overall: conjunctiva clear 11/18/2015 None Full Exam - General 1994 Eyes conjunctiva /eyelids Overall: cornea clear 11/18/2015 None Full Exam - General 1994 Eyes conjunctiva /eyelids Overall: eyelids normal 11/18/2015 None Full Exam - General 1994 Eyes pupils and irises Overall: pupils equal, round, reactive to light and accomodation 11/18/2015 None Full Exam - General 1994 Ears/Nose/Throat otoscopic exam Overall: external auditory canals clear 11/18/2015 None Full Exam - General 1994 Ears/Nose/Throat otoscopic exam Overall: tympanic membranes clear 11/18/2015 None Full Exam - General 1994 Ears/Nose/Throat lips/teeth/gingiva Overall: benign lips 11/18/2015 None Full Exam - General 1994 Ears/Nose/Throat lips/teeth/gingiva Overall: normal dentition 11/18/2015 None Full Exam - General 1994 Ears/Nose/Throat oral cavity/pharynx/larynx Overall: oral mucosa clear 11/18/2015 None Full Exam - General 1994 Ears/Nose/Throat oral cavity/pharynx/larynx Overall: oropharyngeal mucosa clear 11/18/2015 None Full Exam - General 1994 Ears/Nose/Throat oral cavity/pharynx/larynx Overall: hypopharynx benign 11/18/2015 None Full Exam - General 1994 Ears/Nose/Throat oral cavity/pharynx/larynx Overall: no masses 11/18/2015 None Full Exam - General 1994 Respiratory auscultation Overall: breath sounds clear bilaterally 11/18/2015 None Full Exam - General 1994 Respiratory respiratory effort/rhythm Overall: no retractions 11/18/2015 None Full Exam - General 1994 Respiratory respiratory effort/rhythm Overall: normal rate 11/18/2015 None Full Exam - General 1994 Cardiovascular extremities Overall: no clubbing 11/18/2015 None Full Exam - General 1994 Cardiovascular auscultation of heart Overall: regular rate 11/18/2015 None Full Exam - General 1994 Cardiovascular auscultation of heart Overall: normal heart sounds 11/18/2015 None Full Exam - General 1994 Abdomen abdominal exam Overall: no tenderness 11/18/2015 None Full Exam - General 1994 Abdomen abdominal exam Overall: normal bowel sounds 11/18/2015 None Full Exam - General 1994 Lymphatic neck nodes Overall: anterior cervical chain benign 11/18/2015 None Full Exam - General 1994 Lymphatic neck nodes Overall: posterior cervical chain benign 11/18/2015 None Full Exam - General 1994 Musculoskeletal spine, ribs and pelvis Overall: spine benign 11/18/2015 None Full Exam - General 1994 Musculoskeletal spine, ribs and pelvis Overall: sacroiliac joint benign 11/18/2015 None Full Exam - General 1994 Musculoskeletal spine, ribs and pelvis Overall: good posture 11/18/2015 None Full Exam - General 1994 Musculoskeletal head and neck Overall: head atraumatic 11/18/2015 None Full Exam - General 1994 Musculoskeletal head and neck Overall: cervical spine benign 11/18/2015 None Full Exam - General 1994 Integument inspection of skin Overall: few scattered moles, no gross abnormalities 11/18/2015 None Full Exam - General 1994 Neurologic deep tendon reflexes Overall: deep tendon reflexes intact 11/18/2015 None Full Exam - General 1994 Neurologic cranial nerves Overall: crainial nerves 2 - 12 grossly intact 11/18/2015 None Full Exam - General 1994 Psychiatric orientation/consciousness Overall: oriented to person, place and time 11/18/2015 None Full Exam - General 1994 Psychiatric mood and affect Overall: normal mood and affect 11/18/2015 None Full Exam - General 1994 Constitutional general appearance Development: well developed 09/30/2015 None Full Exam - General 1994 Constitutional general appearance Development: appears stated age 0309/30/2015 None Full Exam - General 1994 Constitutional general appearance Hygiene/Attention to Grooming: good hygiene 09/30/2015 None Full Exam - General 1994 Eyes conjunctiva /eyelids Overall: conjunctiva clear 09/30/2015 None Full Exam - General 1994 Eyes conjunctiva /eyelids Overall: cornea clear 09/30/2015 None Full Exam - General 1994 Eyes conjunctiva /eyelids Overall: eyelids normal 09/30/2015 None Full Exam - General 1994 Eyes pupils and irises Overall: pupils equal, round, reactive to light and accomodation 09/30/2015 None Full Exam - General 1994 Ears/Nose/Throat otoscopic exam Overall: external auditory canals clear 09/30/2015 None Full Exam - General 1994 Ears/Nose/Throat otoscopic exam Overall: tympanic membranes clear 09/30/2015 None Full Exam - General 1994 Ears/Nose/Throat lips/teeth/gingiva Overall: benign lips 09/30/2015 None Full Exam - General 1994 Ears/Nose/Throat lips/teeth/gingiva Overall: normal dentition 09/30/2015 None Full Exam - General 1994 Ears/Nose/Throat oral cavity/pharynx/larynx Overall: oral mucosa clear 09/30/2015 None Full Exam - General 1994 Ears/Nose/Throat oral cavity/pharynx/larynx Overall: oropharyngeal mucosa clear 09/30/2015 None Full Exam - General 1994 Ears/Nose/Throat oral cavity/pharynx/larynx Overall: hypopharynx benign 09/30/2015 None Full Exam - General 1994 Ears/Nose/Throat oral cavity/pharynx/larynx Overall: no masses 09/30/2015 None Full Exam - General 1994 Respiratory auscultation Overall: breath sounds clear bilaterally 09/30/2015 None Full Exam - General 1994 Respiratory respiratory effort/rhythm Overall: no retractions 09/30/2015 None Full Exam - General 1994 Respiratory respiratory effort/rhythm Overall: normal rate 09/30/2015 None Full Exam - General 1994 Cardiovascular extremities Overall: no clubbing 09/30/2015 None Full Exam - General 1994 Cardiovascular auscultation of heart Overall: regular rate 09/30/2015 None Full Exam - General 1994 Cardiovascular auscultation of heart Overall: normal heart sounds 09/30/2015 None Full Exam - General 1994 Abdomen abdominal exam Overall: no tenderness 09/30/2015 None Full Exam - General 1994 Abdomen abdominal exam Overall: normal bowel sounds 09/30/2015 None Full Exam - General 1994 Lymphatic neck nodes Overall: anterior cervical chain benign 09/30/2015 None Full Exam - General 1994 Lymphatic neck nodes Overall: posterior cervical chain benign 09/30/2015 None Full Exam - General 1994 Musculoskeletal spine, ribs and pelvis Overall: spine benign 09/30/2015 None Full Exam - General 1994 Musculoskeletal spine, ribs and pelvis Overall: sacroiliac joint benign 09/30/2015 None Full Exam - General 1994 Musculoskeletal spine, ribs and pelvis Overall: good posture 09/30/2015 None Full Exam - General 1994 Musculoskeletal head and neck Overall: head atraumatic 09/30/2015 None Full Exam - General 1994 Musculoskeletal head and neck Overall: cervical spine benign 09/30/2015 None Full Exam - General 1994 Integument inspection of skin Overall: few scattered moles, no gross abnormalities 09/30/2015 None Full Exam - General 1994 Neurologic deep tendon reflexes Overall: deep tendon reflexes intact 09/30/2015 None Full Exam - General 1994 Neurologic cranial nerves Overall: crainial nerves 2 - 12 grossly intact 09/30/2015 None Full Exam - General 1994 Psychiatric orientation/consciousness Overall: oriented to person, place and time 09/30/2015 None Full Exam - General 1994 Psychiatric mood and affect Overall: normal mood and affect 09/30/2015 None Full Exam - General 1994 Integument inspection of skin Dermatitis: excoriation 09/09/2015 and erythema in groin and under breasts - tender to touch with a few punctate irritations along suprapubic region --Improved-punctate irriation resolved and only mild erythema noted Full Exam - General 1994 Constitutional general appearance Development: well developed 09/09/2015 None Full Exam - General 1994 Constitutional general appearance Development: appears stated age 0209/09/2015 None Full Exam - General 1994 Constitutional general appearance Hygiene/Attention to Grooming: good hygiene 09/09/2015 None Full Exam - General 1994 Psychiatric orientation/consciousness Overall: oriented to person, place and time 09/09/2015 None Full Exam - General 1994 Constitutional general appearance Development: well developed 08/28/2015 None Full Exam - General 1994 Constitutional general appearance Development: appears stated age 0208/28/2015 None Full Exam - General 1994 Constitutional general appearance Hygiene/Attention to Grooming: good hygiene 08/28/2015 None Full Exam - General 1994 Psychiatric orientation/consciousness Overall: oriented to person, place and time 08/28/2015 None Full Exam - General 1994 Integument inspection of skin Dermatitis: excoriation 08/28/2015 and erythema in groin and under breasts - tender to touch with a few punctate irritations along suprapubic region Full Exam - General 1994 Constitutional general appearance Development: well developed 07/09/2015 None Full Exam - General 1994 Constitutional general appearance Development: appears stated age 1207/09/2015 None Full Exam - General 1994 Constitutional general appearance Hygiene/Attention to Grooming: good hygiene 07/09/2015 None Full Exam - General 1994 Eyes conjunctiva /eyelids Overall: conjunctiva clear 07/09/2015 None Full Exam - General 1994 Eyes conjunctiva /eyelids Overall: cornea clear 07/09/2015 None Full Exam - General 1994 Eyes conjunctiva /eyelids Overall: eyelids normal 07/09/2015 None Full Exam - General 1994 Eyes pupils and irises Overall: pupils equal, round, reactive to light and accomodation 07/09/2015 None Full Exam - General 1994 Ears/Nose/Throat otoscopic exam Overall: external auditory canals clear 07/09/2015 None Full Exam - General 1994 Ears/Nose/Throat otoscopic exam Overall: tympanic membranes clear 07/09/2015 None Full Exam - General 1994 Ears/Nose/Throat lips/teeth/gingiva Overall: benign lips 07/09/2015 None Full Exam - General 1994 Ears/Nose/Throat lips/teeth/gingiva Overall: normal dentition 07/09/2015 None Full Exam - General 1994 Ears/Nose/Throat oral cavity/pharynx/larynx Overall: oral mucosa clear 07/09/2015 None Full Exam - General 1994 Ears/Nose/Throat oral cavity/pharynx/larynx Overall: oropharyngeal mucosa clear 07/09/2015 None Full Exam - General 1994 Ears/Nose/Throat oral cavity/pharynx/larynx Overall: hypopharynx benign 07/09/2015 None Full Exam - General 1994 Ears/Nose/Throat oral cavity/pharynx/larynx Overall: no masses 07/09/2015 None Full Exam - General 1994 Respiratory auscultation Overall: breath sounds clear bilaterally 07/09/2015 None Full Exam - General 1994 Respiratory respiratory effort/rhythm Overall: no retractions 07/09/2015 None Full Exam - General 1994 Respiratory respiratory effort/rhythm Overall: normal rate 07/09/2015 None Full Exam - General 1994 Cardiovascular extremities Overall: no clubbing 07/09/2015 None Full Exam - General 1994 Cardiovascular auscultation of heart Overall: regular rate 07/09/2015 None Full Exam - General 1994 Cardiovascular auscultation of heart Overall: normal heart sounds 07/09/2015 None Full Exam - General 1994 Abdomen abdominal exam Overall: no tenderness 07/09/2015 None Full Exam - General 1994 Abdomen abdominal exam Overall: normal bowel sounds 07/09/2015 None Full Exam - General 1994 Lymphatic neck nodes Overall: anterior cervical chain benign 07/09/2015 None Full Exam - General 1994 Lymphatic neck nodes Overall: posterior cervical chain benign 07/09/2015 None Full Exam - General 1994 Musculoskeletal spine, ribs and pelvis Overall: spine benign 07/09/2015 None Full Exam - General 1994 Musculoskeletal spine, ribs and pelvis Overall: sacroiliac joint benign 07/09/2015 None Full Exam - General 1994 Musculoskeletal spine, ribs and pelvis Overall: good posture 07/09/2015 None Full Exam - General 1994 Musculoskeletal head and neck Overall: head atraumatic 07/09/2015 None Full Exam - General 1994 Musculoskeletal head and neck Overall: cervical spine benign 07/09/2015 None Full Exam - General 1994 Integument inspection of skin Overall: few scattered moles, no gross abnormalities 07/09/2015 None Full Exam - General 1994 Neurologic deep tendon reflexes Overall: deep tendon reflexes intact 07/09/2015 None Full Exam - General 1994 Neurologic cranial nerves Overall: crainial nerves 2 - 12 grossly intact 07/09/2015 None Full Exam - General 1994 Psychiatric orientation/consciousness Overall: oriented to person, place and time 07/09/2015 None Full Exam - General 1994 Psychiatric mood and affect Overall: normal mood and affect 07/09/2015 None Full Exam - General 1994 Constitutional general appearance Development: well developed 03/06/2015 None Full Exam - General 1994 Constitutional general appearance Development: appears stated age 0803/06/2015 None Full Exam - General 1994 Constitutional general appearance Hygiene/Attention to Grooming: good hygiene 03/06/2015 None Full Exam - General 1994 Eyes conjunctiva /eyelids Overall: conjunctiva clear 03/06/2015 None Full Exam - General 1994 Eyes conjunctiva /eyelids Overall: cornea clear 03/06/2015 None Full Exam - General 1994 Eyes conjunctiva /eyelids Overall: eyelids normal 03/06/2015 None Full Exam - General 1994 Eyes pupils and irises Overall: pupils equal, round, reactive to light and accomodation 03/06/2015 None Full Exam - General 1994 Ears/Nose/Throat otoscopic exam Overall: external auditory canals clear 03/06/2015 None Full Exam - General 1994 Ears/Nose/Throat otoscopic exam Overall: tympanic membranes clear 03/06/2015 None Full Exam - General 1994 Ears/Nose/Throat lips/teeth/gingiva Overall: benign lips 03/06/2015 None Full Exam - General 1994 Ears/Nose/Throat lips/teeth/gingiva Overall: normal dentition 03/06/2015 None Full Exam - General 1994 Ears/Nose/Throat oral cavity/pharynx/larynx Overall: oral mucosa clear 03/06/2015 None Full Exam - General 1994 Ears/Nose/Throat oral cavity/pharynx/larynx Overall: oropharyngeal mucosa clear 03/06/2015 None Full Exam - General 1994 Ears/Nose/Throat oral cavity/pharynx/larynx Overall: hypopharynx benign 03/06/2015 None Full Exam - General 1994 Ears/Nose/Throat oral cavity/pharynx/larynx Overall: no masses 03/06/2015 None Full Exam - General 1994 Respiratory auscultation Overall: breath sounds clear bilaterally 03/06/2015 None Full Exam - General 1994 Respiratory respiratory effort/rhythm Overall: no retractions 03/06/2015 None Full Exam - General 1994 Respiratory respiratory effort/rhythm Overall: normal rate 03/06/2015 None Full Exam - General 1994 Cardiovascular extremities Overall: no clubbing 03/06/2015 None Full Exam - General 1994 Cardiovascular auscultation of heart Overall: regular rate 03/06/2015 None Full Exam - General 1994 Cardiovascular auscultation of heart Overall: normal heart sounds 03/06/2015 None Full Exam - General 1994 Abdomen abdominal exam Overall: no tenderness 03/06/2015 None Full Exam - General 1994 Abdomen abdominal exam Overall: normal bowel sounds 03/06/2015 None Full Exam - General 1994 Lymphatic neck nodes Overall: anterior cervical chain benign 03/06/2015 None Full Exam - General 1994 Lymphatic neck nodes Overall: posterior cervical chain benign 03/06/2015 None Full Exam - General 1994 Musculoskeletal spine, ribs and pelvis Overall: spine benign 03/06/2015 None Full Exam - General 1994 Musculoskeletal spine, ribs and pelvis Overall: sacroiliac joint benign 03/06/2015 None Full Exam - General 1994 Musculoskeletal spine, ribs and pelvis Overall: good posture 03/06/2015 None Full Exam - General 1994 Musculoskeletal head and neck Overall: head atraumatic 03/06/2015 None Full Exam - General 1994 Musculoskeletal head and neck Overall: cervical spine benign 03/06/2015 None Full Exam - General 1994 Integument inspection of skin Overall: few scattered moles, no gross abnormalities 03/06/2015 None Full Exam - General 1994 Neurologic deep tendon reflexes Overall: deep tendon reflexes intact 03/06/2015 None Full Exam - General 1994 Neurologic cranial nerves Overall: crainial nerves 2 - 12 grossly intact 03/06/2015 None Full Exam - General 1994 Psychiatric orientation/consciousness Overall: oriented to person, place and time 03/06/2015 None Full Exam - General 1994 Psychiatric mood and affect Overall: normal mood and affect 03/06/2015 None Procedures Procedure Codes Date PPPS, SUBSEQ VISIT CPT -4: G0439 02/03/2017 ADMIN INFLUENZA VIRUS VAC CPT-4: G0008 04/08/2016 ADMIN PNEUMOCOCCAL VACCINE SNOMED CT: 70387608 CPT-4: G0009 04/08/2016 PNEUMOCOCCAL VACC [address]: 79274977 CPT-4: 88023 04/08/2016 FLU VACC PRSV FREE INC ANTIG CPT-4: 38392 04/08/2016 Vital Signs Date Vital 08/23/2017 Blood Pressure 1: 150/82 Code : 8480-6 BMI: 42.0 Code : 47716-3 Heart Rate 1 : 66 bpm Height: 5'7" SpO2: 96% Weight: 268 lbs 02/03/2017 Blood Pressure 1: 138/72 Code : 8480-6 BMI: 41.2 Code : 51366-8 Heart Rate 1 : 96 bpm Height: 5'7" SpO2: 97% Weight: 263 lbs 02/02/2017 Blood Pressure 1: 140/90 Code : 8480-6 BMI: 41.2 Code : 24294-5 Heart Rate 1 : 103 bpm Height: 5'7" SpO2: 94% Weight: 263 lbs 11/26/2016 Blood Pressure 1: 152/88 Code : 8480-6 BMI: 41.0 Code : 23924-3 Heart Rate 1 : 71 bpm Height: 5'7" SpO2: 94% Temperature: 37.7 (C) / 99.8 (F) Weight: 262 lbs 10/07/2016 Blood Pressure 1: 148/82 Code : 8480-6 BMI: 41.7 Code : 06667-3 Heart Rate 1 : 58 bpm Height: 5'7" SpO2: 96% Weight: 266 lbs 09/16/2016 Blood Pressure 1: 122/70 Code : 8480-6 BMI: 42.0 Code : 09949-6 Heart Rate 1 : 65 bpm Height: 5'7" SpO2: 96% Weight: 268 lbs 09/07/2016 Blood Pressure 1: 154/60 Code : 8480-6 BMI: 42.3 Code : 85289-8 Heart Rate 1 : 101 bpm Height: 5'7" SpO2: 97% Weight: 270 lbs 04/08/2016 Blood Pressure 1: 128/70 Code : 8480-6 BMI: 41.4 Code : 18967-8 Heart Rate 1 : 62 bpm Height: 5'7" SpO2: 95% Weight: 264 lbs 8 oz 03/05/2016 Blood Pressure 1: 144/78 Code : 8480-6 Blood Pressure 1: 139/72 Code: 8480-6 BMI: 41.9 Code: 83890-2 Heart Rate 1: 71 bpm Height: 5'7" SpO2: 93% Weight: 267 lbs 8 oz 12/04/2015 Blood Pressure 1: 132/70 Code : 8480-6 BMI: 41.3 Code : 86517-5 Heart Rate 1 : 56 bpm Height: 5'7" SpO2: 96% Weight: 264 lbs 11/18/2015 Blood Pressure 1: 138/72 Code : 8480-6 BMI: 41.0 Code : 19920-4 Heart Rate 1 : 85 bpm Height: 5'7" SpO2: 93% Weight: 262 lbs 09/30/2015 Blood Pressure 1: 128/76 Code : 8480-6 BMI: 41.2 Code : 63756-0 Heart Rate 1 : 70 bpm Height: 5'7" SpO2: 93% Weight: 263 lbs 09/09/2015 Blood Pressure 1: 138/80 Code : 8480-6 BMI: 40.3 Code : 23566-1 Heart Rate 1 : 84 bpm Height: 5'7" SpO2: 95% Weight: 257 lbs 08/28/2015 Blood Pressure 1: 122/72 Code : 8480-6 BMI: 39.6 Code : 17527-8 Heart Rate 1 : 75 bpm Height: 5'7" SpO2: 96% Weight: 253 lbs 07/09/2015 Blood Pressure 1: 135/78 Code : 8480-6 Blood Pressure 1: 140/78 Code: 8480-6 BMI: 39.5 Code: 41419-7 Heart Rate 1: 62 bpm Height: 5'7" SpO2: 95% Weight: 252 lbs 03/06/2015 Blood Pressure 1: 142/88 Code : 8480-6 BMI: 39.3 Code : 07338-3 Heart Rate 1 : 65 bpm Height: 5'7" SpO2: 95% Weight: 251 lbs Functional Status No Functional Status data History of Present Illness Symptom Name Status Result Effective Date Notes hypertension Quality primary hypertension 08/23/2017 None hypertension Onset and Resolution ongoing 08/23/2017 None hypertension Onset of Symptom during adulthood 08/23/2017 None hypertension Blood Pressure Values patient checking blood pressure at home - did not bring in readings 08/23/2017 -Reports that it has been around 135/80 at home hypertension Alleviating Factors medication 08/23/2017 None hypertension Pertinent Findings Denies dizziness 08/23/2017 None hypertension Pertinent Findings dyspnea 08/23/2017 None hypertension Pertinent Findings Denies edema 08/23/2017 None arrhythmia Quality intermittent 08/23/2017 None arrhythmia Quality irregular beats 08/23/2017 (atrial fibrillation) arrhythmia Onset and Resolution ongoing 08/23/2017 None arrhythmia Alleviating Factors medication 08/23/2017 None Annual Medicare Wellness Exam Alcohol Use does not drink any alcohol 02/03/2017 None Annual Medicare Wellness Exam Aspirin Use no 02/03/2017 Recently DCd Annual Medicare Wellness Exam Blood Glucose (self reported) don't know 02/03/2017 None Annual Medicare Wellness Exam Blood Pressure (self reported ) diagnosed with hypertension 02/03/2017 None Annual Medicare Wellness Exam Blood Pressure (self reported ) high (140/90 or higher) 02/03/2017 None Annual Medicare Wellness Exam Cholesterol (self reported) don't know 02/03/2017 None Annual Medicare Wellness Exam Depression (last 6 months) some of the time 02/03/2017 None Annual Medicare Wellness Exam Depression or Hopelessness almost never 02/03/2017 None Annual Medicare Wellness Exam Describe Your Health good 02/03/2017 None Annual Medicare Wellness Exam Exercise Habits does not exercise 02/03/2017 None Annual Medicare Wellness Exam Handling Stress usually dulce effectively 02/03/2017 None Annual Medicare Wellness Exam Hemaglobin A-1C (self reported ) don't know 02/03/2017 None Annual Medicare Wellness Exam Hours of Sleep 6 02/03/2017 None Annual Medicare Wellness Exam Interaction with Friends yes 02/03/2017 None Annual Medicare Wellness Exam Interests & Pleasure some of the time 02/03/2017 None Annual Medicare Wellness Exam Life Satisfaction satisfied 02/03/2017 None Annual Medicare Wellness Exam Motor Vehicle Safety always fastens seat belt: y 02/03/2017 None Annual Medicare Wellness Exam Nutrition servings of vegetables / fruit per day: 2 02/03/2017 None Annual Medicare Wellness Exam Smoking and Tobacco Use non smoker 02/03/2017 None Annual Medicare Wellness Exam Social & Emotional Support usually 02/03/2017 None Annual Medicare Wellness Exam Stress most of the time 02/03/2017 None Annual Medicare Wellness Exam Sun Exposure protects skin when outdoors: n 02/03/2017 None hypertension Quality intermittent 02/02/2017 None hypertension Onset and Resolution ongoing 02/02/2017 None hypertension Onset of Symptom during adulthood 02/02/2017 None hypertension Blood Pressure Values patient checking blood pressure at home - did not bring in readings 02/02/2017 -Checks occasionally hypertension Alleviating Factors medication 02/02/2017 None hypertension Pertinent Findings Denies dizziness 02/02/2017 None hypertension Pertinent Findings dyspnea 02/02/2017 None hypertension Pertinent Findings edema 02/02/2017 None low back pain Location on both sides 02/02/2017 None low back pain Onset and Resolution ongoing 02/02/2017 None low back pain Limitation on Activities allows weight bearing activity 02/02/2017 None low back pain Limitation on Activities moderately limits activities 02/02/2017 None low back pain Significant Medical Conditions prior injury 02/02/2017 None low back pain Triggers activity 02/02/2017 None dyspnea Quality intermittent 02/02/2017 None dyspnea Quality shortness of breath 02/02/2017 None dyspnea Onset and Resolution ongoing 02/02/2017 None dyspnea Onset of Symptom 2 months ago 02/02/2017 None dyspnea Limitation on Activities moderately limits activities 02/02/2017 None dyspnea Frequency of Episodes weekly 02/02/2017 None dyspnea Pertinent Findings back pain 02/02/2017 None dyspnea Pertinent Findings chest discomfort 02/02/2017 occ can feel palpatations dyspnea Pertinent Findings edema 02/02/2017 None sinus congestion Location on both sides 11/26/2016 None sinus congestion Quality fullness 11/26/2016 None sinus congestion Quality pressure 11/26/2016 None sinus congestion Onset and Resolution sudden in onset 11/26/2016 None sinus congestion Onset of Symptom 2 weeks ago 11/26/2016 None sinus congestion Frequency of Episodes daily 11/26/2016 None sinus congestion Pertinent Findings cough 11/26/2016 None sinus congestion Pertinent Findings decreased energy level 11/26/2016 None sinus congestion Pertinent Findings fever 11/26/2016 None sinus congestion Pertinent Findings hoarseness 11/26/2016 None chest pain/pressure Location diffusely 11/26/2016 None chest pain/pressure Quality aching 11/26/2016 None chest pain/pressure Quality heavy 11/26/2016 None chest pain/pressure Quality pressure 11/26/2016 None chest pain/pressure Quality sharp 11/26/2016 None chest pain/pressure Onset and Resolution sudden in onset 11/26/2016 None chest pain/pressure Onset of Symptom 1 weeks ago 11/26/2016 None chest pain/pressure Exacerbating Factors coughing 11/26/2016 None chest pain/pressure Exacerbating Factors deep breathing 11/26/2016 None chest pain/pressure Pertinent Findings cough 11/26/2016 None chest pain/pressure Pertinent Findings fever 11/26/2016 None hypertension Onset and Resolution ongoing 10/07/2016 None hypertension Onset of Symptom during adulthood 10/07/2016 None hypertension Alleviating Factors medication 10/07/2016 None hypertension Pertinent Findings Denies dizziness 10/07/2016 None hypertension Pertinent Findings Denies dyspnea 10/07/2016 None hypertension Pertinent Findings Denies edema 10/07/2016 None knee pain Location on the left 10/07/2016 None knee pain Quality acute 10/07/2016 None knee pain Limitation on Activities allows weight bearing activity 10/07/2016 None knee pain Limitation on Activities moderately limits activities 10/07/2016 None knee pain Alleviating Factors rest 10/07/2016 None knee pain Exacerbating Factors exertion 10/07/2016 None knee pain Exacerbating Factors weight bearing 10/07/2016 None low back pain Location on both sides 10/07/2016 None low back pain Limitation on Activities allows weight bearing activity 10/07/2016 None low back pain Limitation on Activities moderately limits activities 10/07/2016 None low back pain Significant Medical Conditions prior injury 10/07/2016 None low back pain Triggers activity 10/07/2016 None depression Quality chronic 10/07/2016 None depression Onset and Resolution ongoing 10/07/2016 None hypertension Blood Pressure Values patient checking blood pressure at home - did not bring in readings 10/07/2016 -Checks occasionally depression Alleviating Factors medication 10/07/2016 None rash Location-Major on the abdomen 10/07/2016 (under abdominal fold) rash Location-Major on the chest 10/07/2016 (under breasts) rash Quality recurrent 10/07/2016 None rash Quality pruritic 10/07/2016 None rash Quality peeling 10/07/2016 None rash Onset and Resolution ongoing 10/07/2016 None rash Prior Treatments unresponsive to treatment 10/07/2016 None hypertension Quality intermittent 10/07/2016 None knee pain Quality improving 10/07/2016 None low back pain Onset and Resolution ongoing 10/07/2016 None hypertension Onset and Resolution ongoing 09/16/2016 None hypertension Onset of Symptom during adulthood 09/16/2016 None hypertension Alleviating Factors medication 09/16/2016 None hypertension Pertinent Findings Denies dizziness 09/16/2016 None hypertension Pertinent Findings Denies dyspnea 09/16/2016 None hypertension Pertinent Findings edema 09/16/2016 in the left knee hypertension Blood Pressure Values not checking blood pressure at home 09/16/2016 None Hospital Follow Up _ Other: chest pressure 09/16/2016 None Hospital Follow Up Quality acute 09/16/2016 None Hospital Follow Up Onset of Symptom 3 weeks ago 09/16/2016 None depression Quality worsening 09/16/2016 None depression Onset and Resolution ongoing 09/16/2016 None depression Quality chronic 09/16/2016 None low back pain Location on both sides 09/16/2016 None low back pain Quality acute 09/16/2016 None low back pain Onset and Resolution sudden in onset 09/16/2016 None low back pain Onset of Symptom 1 weeks ago 09/16/2016 None low back pain Limitation on Activities allows weight bearing activity 09/16/2016 None low back pain Limitation on Activities moderately limits activities 09/16/2016 None low back pain Triggers activity 09/16/2016 None low back pain Significant Medical Conditions prior injury 09/16/2016 None knee pain Location on the left 09/16/2016 None knee pain Quality acute 09/16/2016 None knee pain Onset of Symptom a few weeks ago 09/16/2016 None knee pain Frequency of Episodes daily 09/16/2016 None knee pain Limitation on Activities allows weight bearing activity 09/16/2016 None knee pain Limitation on Activities moderately limits activities 09/16/2016 None knee pain Exacerbating Factors exertion 09/16/2016 None knee pain Exacerbating Factors weight bearing 09/16/2016 None knee pain Alleviating Factors rest 09/16/2016 None knee pain Location on the left 09/07/2016 None knee pain Quality tenderness 09/07/2016 None knee pain Quality constant 09/07/2016 None knee pain Onset and Resolution sudden in onset 09/07/2016 None knee pain Onset of Symptom 2 weeks ago 09/07/2016 None knee pain Frequency of Episodes daily 09/07/2016 None knee pain Pertinent Findings limping 09/07/2016 None knee pain Pertinent Findings pain with movement 09/07/2016 None knee pain Pertinent Findings stiffness 09/07/2016 None knee pain Pertinent Findings weakness 09/07/2016 None dyspnea Quality intermittent 04/08/2016 None dyspnea Quality shortness of breath 04/08/2016 None dyspnea Onset and Resolution gradual in onset 04/08/2016 None dyspnea Onset and Resolution ongoing 04/08/2016 None dyspnea Onset of Symptom during adulthood 04/08/2016 None dyspnea Limitation on Activities moderately limits activities 04/08/2016 None dyspnea Frequency of Episodes unchanged 04/08/2016 None dyspnea Alleviating Factors inhalers / nebulizer 04/08/2016 None dyspnea Alleviating Factors rest 04/08/2016 None dyspnea Exacerbating Factors exertion 04/08/2016 None hypertension Onset and Resolution ongoing 04/08/2016 None hypertension Onset of Symptom during adulthood 04/08/2016 None hypertension Blood Pressure Values patient checking blood pressure at home - did not bring in readings 04/08/2016 None hypertension Alleviating Factors medication 04/08/2016 None hypertension Pertinent Findings Denies dizziness 04/08/2016 None hypertension Pertinent Findings dyspnea 04/08/2016 None hypertension Pertinent Findings Denies edema 04/08/2016 None rash Location-Trunk in the intravaginal area 04/08/2016 None rash Quality improving 04/08/2016 None dyspnea Quality intermittent 03/05/2016 None dyspnea Quality shortness of breath 03/05/2016 None dyspnea Onset and Resolution gradual in onset 03/05/2016 None dyspnea Onset and Resolution ongoing 03/05/2016 None dyspnea Onset of Symptom during adulthood 03/05/2016 None dyspnea Limitation on Activities moderately limits activities 03/05/2016 None dyspnea Alleviating Factors inhalers / nebulizer 03/05/2016 None dyspnea Alleviating Factors rest 03/05/2016 None dyspnea Exacerbating Factors exertion 03/05/2016 None hypertension Onset and Resolution ongoing 03/05/2016 None hypertension Onset of Symptom during adulthood 03/05/2016 None hypertension Blood Pressure Values patient checking blood pressure at home - did not bring in readings 03/05/2016 None hypertension Alleviating Factors medication 03/05/2016 None hypertension Pertinent Findings Denies dizziness 03/05/2016 None hypertension Pertinent Findings dyspnea 03/05/2016 None hypertension Pertinent Findings Denies edema 03/05/2016 None dyspnea Frequency of Episodes unchanged 03/05/2016 None dyspnea Quality intermittent 12/04/2015 None dyspnea Quality worsening 12/04/2015 None dyspnea Onset and Resolution ongoing 12/04/2015 None dyspnea Onset of Symptom during adulthood 12/04/2015 None dyspnea Onset and Resolution gradual in onset 12/04/2015 None dyspnea Limitation on Activities moderately limits activities 12/04/2015 None dyspnea Alleviating Factors rest 12/04/2015 None dyspnea Exacerbating Factors exertion 12/04/2015 None dyspnea Alleviating Factors inhalers / nebulizer 12/04/2015 None dyspnea Quality shortness of breath 12/04/2015 None dyspnea Onset of Symptom 1-2 months ago 12/04/2015 None pruritus Location-Major in the groin area 12/04/2015 None pruritus Location-Trunk in the intravaginal area 12/04/2015 None pruritus Quality intermittent 12/04/2015 None pruritus Quality pruritic 12/04/2015 None pruritus Onset and Resolution ongoing 12/04/2015 None pruritus Onset of Symptom 2 years ago 12/04/2015 None pruritus Triggers no known triggers 12/04/2015 None edema Onset and Resolution ongoing 11/18/2015 None edema Limitation on Activities moderately limits activities 11/18/2015 None edema Frequency of Episodes unchanged 11/18/2015 None edema Significant Medications diuretics 11/18/2015 None edema Triggers no known associated factors 11/18/2015 None edema Pertinent Findings back pain 11/18/2015 None edema Pertinent Findings dyspnea 11/18/2015 None edema Location on the left leg 11/18/2015 None edema Location on the right leg 11/18/2015 None edema Quality acute None rash Location-Major in the groin area 11/18/2015 None rash Color red 2015 None rash Onset and Resolution ongoing 11/18/2015 None rash Onset of Symptom _ years ago 11/18/2015 None cough Location in the throat 11/18/2015 None cough Quality dry None cough Quality hacking 11/18/2015 None cough Onset and Resolution sudden in onset 11/18/2015 None cough Onset of Symptom _ weeks ago 11/18/2015 None sinus congestion Quality fullness 11/18/2015 None sinus congestion Quality pressure 11/18/2015 None sinus congestion Onset and Resolution sudden in onset 11/18/2015 None sinus congestion Onset of Symptom _ weeks ago 11/18/2015 None shortness of breath Quality breathlessness 11/18/2015 None shortness of breath Quality chest tightness 11/18/2015 None shortness of breath Onset and Resolution gradual in onset 11/18/2015 None shortness of breath Onset of Symptom 1 months ago 11/18/2015 None shortness of breath Frequency of Episodes daily 11/18/2015 None shortness of breath Limitation on Activities moderately limits activities 11/18/2015 None shortness of breath Triggers activity 11/18/2015 None shortness of breath Alleviating Factors sitting down 11/18/2015 None shortness of breath Pertinent Findings chest discomfort 11/18/2015 None edema Onset and Resolution ongoing 09/30/2015 None edema Onset of Symptom 2 weeks ago 09/30/2015 worse in the last 2 weeks. edema Pertinent Findings back pain 09/30/2015 None edema Pertinent Findings dyspnea 09/30/2015 None edema Limitation on Activities moderately limits activities 09/30/2015 None edema Frequency of Episodes unchanged 09/30/2015 None edema Significant Medications diuretics 09/30/2015 None edema Triggers no known associated factors 09/30/2015 None edema Location on the left leg 09/30/2015 None edema Location on the right leg 09/30/2015 None edema Quality acute None rash Location-Major on the abdomen 09/09/2015 None rash Quality improving 09/09/2015 None rash Color red 2015 None rash Pertinent Findings itching 09/09/2015 None rash Onset and Resolution ongoing 09/09/2015 None rash Onset of Symptom _ weeks ago 09/09/2015 None rash Frequency of Episodes decreasing 09/09/2015 None rash Severity mild None rash Severity improving 09/09/2015 None rash Prior Treatments responsive to treatment 09/09/2015 None rash Triggers no known triggers 09/09/2015 None rash Quality recurrent 08/28/2015 None rash Timing of Episodes in the summer 08/28/2015 usually rash Onset of Symptom 2 months ago 08/28/2015 None rash Quality pruritic 08/28/2015 None rash Quality painful 08/28/2015 None rash Quality worsening 08/28/2015 None rash Color red 2015 None rash Onset and Resolution ongoing 08/28/2015 None rash Pertinent Findings itching 08/28/2015 None rash Pertinent Findings pain 08/28/2015 None back pain Location lumbar-sacral spine 07/09/2015 fractured vertebra- twisted in shower in August back pain Pertinent Findings Denies sleep disturbance 07/09/2015 uses Trazadone hypertension Quality chronic 07/09/2015 None hypertension Onset and Resolution ongoing 07/09/2015 None hypertension Severity mild 07/09/2015 None hypertension Triggers stress 07/09/2015 None hypertension Alleviating Factors medication 07/09/2015 None hypertension Exacerbating Factors stress 07/09/2015 None hypertension Pertinent Findings Denies dizziness 07/09/2015 None hypertension Pertinent Findings Denies dyspnea 07/09/2015 None hypertension Pertinent Findings Denies edema 07/09/2015 None hyperlipidemia Onset and Resolution ongoing 07/09/2015 None back pain Onset and Resolution sudden in onset 07/09/2015 None back pain Onset and Resolution ongoing 07/09/2015 None back pain Limitation on Activities moderately limits activities 07/09/2015 None back pain Frequency of Episodes unchanged 07/09/2015 None back pain Length of Episodes _ months 07/09/2015 None hypertension Blood Pressure Values not checking blood pressure at home 07/09/2015 None back pain Onset of Symptom _ months ago 07/09/2015 None back pain Mechanism of injury twisting 07/09/2015 None hyperlipidemia Alleviating Factors medication 07/09/2015 None rash Location-Major on the abdomen 07/09/2015 abdominal fold rash Quality recurrent 07/09/2015 None rash Color red 2014 None rash Onset of Symptom 2 weeks ago 07/09/2015 first of June rash Timing of Episodes in the summer 07/09/2015 usually back pain Location lumbar-sacral spine 03/06/2015 fractured vertebra- twisted in shower in August back pain Onset of Symptom 6 months ago 03/06/2015 None back pain Mechanism of injury twisting 03/06/2015 None back pain Pertinent Findings Denies sleep disturbance 03/06/2015 uses Trazadone hypertension Onset and Resolution ongoing 03/06/2015 None hypertension Pertinent Findings dizziness 03/06/2015 occasionally hypertension Pertinent Findings dyspnea 03/06/2015 None hypertension Pertinent Findings Denies edema 03/06/2015 None hyperlipidemia Onset and Resolution ongoing 03/06/2015 None hypertension Quality chronic 03/06/2015 None hypertension Severity mild 03/06/2015 None hypertension Triggers stress 03/06/2015 None hypertension Alleviating Factors medication 03/06/2015 None hypertension Exacerbating Factors stress 03/06/2015 None hypertension Exacerbating Factors change in dietary habits 03/06/2015 None Advance Directives No Advance Directive data Encounters Encounter Performer Location Codes Date ([id number]) [id number] EST. PATIENT, LEVEL IV Diagnosis: Essential (primary) hypertension[ICD10: I10] Diagnosis: Chronic atrial fibrillation[ICD10: I48.2] Scarlett Spring MD, [facility] CPT-4: 17350 08/23/2017 ([id number]) [id number] EST. PATIENT, LEVEL IV Diagnosis: Paroxysmal atrial fibrillation[ICD10: I48.0] Diagnosis: Essential (primary) hypertension[ICD10: I10] Scarlett Spring MD, [facility] CPT-4: 69423 02/02/2017 75049 EST. PATIENT, LEVEL III Diagnosis: Acute laryngopharyngitis[ICD10: J06.0] Diagnosis: Cough[ICD10: R05] Diagnosis: Pleurodynia[ICD10: R07.81] Diagnosis: Other dorsalgia[ICD10: M54.89] Kassandra Spring MD, [facility] CPT-4 : 78703 11/26/2016 [id number]) [id number] EST. PATIENT, LEVEL IV Diagnosis: Essential (primary) hypertension[ICD10: I10] Diagnosis: Pain in left knee[ICD10: M25.562] Diagnosis: Low back pain[ICD10: M54.5] Diagnosis: Major depressive disorder, recurrent, moderate[ICD10: F33.1] Scarlett Spring MD, [facility] CPT-4: 65593 10/07/2016 ([id number]) 86436 EST. PATIENT, LEVEL IV Diagnosis: Essential (primary) hypertension[ICD10: I10] Diagnosis: Rash and other nonspecific skin eruption[ICD10: R21] Diagnosis: Major depressive disorder, recurrent, mild[ICD10: F33.0] Scarlett Spring MD, [facility] CPT-4: 79522 09/16/2016 [id number] EST. PATIENT, LEVEL IV Diagnosis: Pain in left lower leg[ICD10: M79.662] Diagnosis: Pain in left knee[ICD10: M25.562] Kassandra Spring MD, [facility] CPT -4: 90423 09/07/2016 ([id number]) 86164 EST. PATIENT, LEVEL IV Diagnosis: Encounter for immunization[ICD10: Z23] Diagnosis: Essential (primary) hypertension[ICD10: I10] Diagnosis: Mixed hyperlipidemia[ICD10: E78.2] Scarlett Spring MD, [facility] CPT-4: 02530 04/08/2016 ([id number]) 78819 EST. PATIENT, LEVEL III Diagnosis: Essential (primary) hypertension[ICD10: I10] Diagnosis: Shortness of breath[ICD10: R06.02] Scarlett Spring MD, [facility] CPT-4: 73876 03/05/2016 ([id number]) 59871 EST. PATIENT, LEVEL III Diagnosis: Chronic obstructive pulmonary disease, unspecified[ICD10: J44.9] Scarlett Spring MD, [facility] CPT-4: 74380 12/04/2015 ([id number]) 71401 EST. PATIENT, LEVEL IV Diagnosis: Essential (primary) hypertension[ICD10: I10] Diagnosis: Allergic rhinitis due to pollen[ICD10: J30.1] Scarlett Spring MD, [facility] CPT-4: 19033 11/18/2015 ([id number]) 02386 EST. PATIENT, LEVEL IV Diagnosis: Localized edema[ICD10: R60.0] Diagnosis: Dysuria[ICD10: R30.0] Diagnosis: Essential (primary) hypertension[ICD10: I10] Diagnosis: Nausea[ICD10: R11.0] Alis Spring MD, [facility] CPT-4: 36815 09/30/2015 ([id number]) 90477 EST. PATIENT, LEVEL II Diagnosis: Methicillin susceptible Staphylococcus aureus infection as the cause of diseases classified elsewhere[ICD10: B95.61] Diagnosis: Methicillin susceptible Staphylococcus aureus infection, unspecified site[ICD10: A49.01] Alis Spring MD, [facility] CPT-4: 21393 09/09/2015 ([id number]) 73309 EST. PATIENT, LEVEL III Diagnosis: Dermatophytosis, unspecified[ICD10: B35.9] Diagnosis: Rash and other nonspecific skin eruption[ICD10: R21] APARNA Garcia MD CPT-4: 49451 08/28/2015 ([id number]) 58635 EST. PATIENT, LEVEL IV Diagnosis: Essential (primary) hypertension[ICD10: I10] Diagnosis: Gastro-esophageal reflux disease without esophagitis[ICD10: K21.9] Diagnosis: Other dorsalgia[ICD10: M54.89] APARNA Garcia MD CPT- 4: 02606 07/09/2015 ([id number]) OFFICE VISIT, NEW - LEVEL 4 Diagnosis: ESSENTIAL HYPERTENSION[ICD9: 401.9] Diagnosis: Osteoporosis[ICD9: 733.00] Diagnosis: Back pain[ICD9: 724.5] Diagnosis: Insomnia[ICD9: 780.52] Diagnosis: ESOPHAGEAL REFLUX[ICD9: 530.81] Scarlett Spring MD, [facility] CPT- 4: 95660 03/06/2015 Plan of Care Planned Activity Notes Codes Status Date Visit Plan: Hypertension - well controlled - continue with current medications, continue with no added salt diet. Pt has been encouraged to exercise daily. The pt has been advised to call the office if there are any acute concerns about change in blood pressure readings at home. Atrial Fibrillation - pt on chronic anticoagulation and is currently rate controlled. The pt is to have labs done as appropriate to monitor medication levels and is to report if they start to feel as if their heart rate is becoming uncontrolled. 08/23/2017 Appointment: Scarlett Spring WPtel: [address] [place], [place] [id number] (15 min) Moderate 08/23/2017 Patient Education: Patient Medication Summary Completed 08/23/2017 Visit Plan: Medicare Exam - today we discussed the patients past history, immunizations, preventative exams/evaluations - colonoscopy, fecal occult blood testing, routine labs for renal function, glucose, cholesterol, osteoporosis evaluations, cardiovascular testing and cancer screenings. We have also discussed mental health and the signs/symptoms of depression. The patient was advised of home safety evaluations and the need to make sure that as the aging process continues, we need to be aware of different ways to make the home a safer place to reside. The patient has also been counseled that exercise is necessary - and of utmost importance as we age to help decrease fall risk and to maintain independence in the home. Today we discussed the need for the patient to create paperwork for Advanced directives as well as for the patient to provide this office with a copy of her DOPA paperwork for health care surrogate. New onset A. Fib yesterday - Defer to cardiology 02/03/2017 Appointment: Kassandra Argueta WPtel: [id number] [facility] - Annual Wellness Visit 02/03/2017 Patient Education: Patient Medication Summary Completed 02/03/2017 Patient Education: Obesity Completed 02/03/2017 Visit Plan: Atrial fibrillation - appt with dr. corley today at 1pm - pt's ekg showed acute atrial fibrillation. Hypertension - well controlled - continue with current medications, continue with no added salt diet. Pt has been encouraged to exercise daily. The pt has been advised to call the office if there are any acute concerns about change in blood pressure readings at home. 02/02/2017 Appointment: Scarlett Spring WPtel: [facility] (15 min) Moderate 02/02/2017 Patient Education: Patient Medication Summary Completed 02/02/2017 Patient Education: Obesity Completed 02/02/2017 Patient Education: Hypertension Completed 02/02/2017 Visit Plan: URI - Pt advised to increase fluids, vitamin C. Discussed natural and expected course of this diagnosis and need to alert me if symptoms do not follow expected course, or if any worse. RX sent to patient' s pharmacy. Allergies - chronic - recommended pt to use allergy medication as prescribed. Pt has been counseled as to the appropriate use of the medication. Pt to call if allergy symptoms are not controlled with the medication. If using nasal spray, instructions as follows: Nasal spray- use twice daily, one spray per nostril twice daily, after 30 minutes, rinse out nose with saline spray.. Use opposite hand per nostril to spray in the nasal steroid allergy spray. Rib/ Back pain - The pt is to use prn antiinflammatories to manage acute pain. The patient is to call the office if the pain is worsening or does not improve. 11/26/2016 Appointment: [facility] [phone] [facility] (30 min) Complex 11/26/2016 Patient Education: Patient Medication Summary Completed 11/26/2016 Visit Plan: Hypertension - well controlled - continue with current medications, continue with no added salt diet. Pt has been encouraged to exercise daily. The pt has been advised to call the office if there are any acute concerns about change in blood pressure readings at home. Chronic Depression and anxiety - the pt has symptoms of chronic anxiety and depression that have been fairly well controlled since the last office visit. The pt has expected periods of exacerbation with abatement of the symptoms with change in situational exposure. No change in current medications. Arthritis- occasionally uncontrolled symptoms- recommend pt to take antiinflammatory as directed for pain control. Use tylenol for break through pain symptoms. 10/07/2016 Appointment: [facility] [phone] [facility] (15 min) Moderate 10/07/2016 Patient Education: Patient Medication Summary Completed 10/07/2016 Patient Education: Obesity Completed 10/07/2016 Patient Education: Hypertension Completed 10/07/2016 Care Plan: VASCULAR STUDY Pending 10/04/2016 Care Plan: X-RAY EXAM OF KNEE 3 [facility] : 43509-3 Pending 10/04/2016 Visit Plan: Hypertension - well controlled - continue with current medications, continue with no added salt diet. Pt has been encouraged to exercise daily. The pt has been advised to call the office if there are any acute concerns about change in blood pressure readings at home. Rash - continue current treatment. Depression - RX for paroxetine 09/16/2016 Appointment: Scarlett Spring [facility] [phone] [facility] [place] (15 min) Moderate 09/16/2016 Patient Education: Patient Medication Summary Completed 09/16/2016 Patient Education: Obesity Completed 09/16/2016 Patient Education: Hypertension Completed 09/16/2016 Visit Plan: Left knee pain, left calf pain - Will order x- ray, US - The pt is to use prn antiinflammatories to manage acute pain. The patient is to call the office if the pain is worsening or does not improve. 09/07/2016 Appointment: [facility] [phone] [facility] (10 min) Simple 09/07/2016 Patient Education: Patient Medication Summary Completed 09/07/2016 Patient Education: Obesity Completed 09/07/2016 Visit Plan: Hypertension - well controlled - continue with current medications, continue with no added salt diet. Pt has been encouraged to exercise daily. The pt has been advised to call the office if there are any acute concerns about change in blood pressure readings at home. Hyperlipidemia - pt has been counseled about appropriate diet, exercise, and need for low fat food choices. I have discussed the need for the patient to take medications as prescribed. If the patient has negative side effects from the medication, they are to CALL the office and not abruptly discontinue the medication without discussion with a practitioner in the office. We will check labs in 3-6 months for follow up on the patient's chronic medical problem and to assure normal liver response to medications. pneumovax and flu shot today mammogram order 04/08/2016 Appointment: Scarlett Spring [facility]Ptel[facility] [phone] [facility] (15 min) Moderate 04/08/2016 Patient Education: Patient Medication Summary Completed 04/08/2016 Patient Education: Obesity Completed 04/08/2016 Patient Education: Hypertension Completed 04/08/2016 Visit Plan: Hypertension - well controlled - continue with current medications, continue with no added salt diet. Pt has been encouraged to exercise daily. The pt has been advised to call the office if there are any acute concerns about change in blood pressure readings at home. cortisone q10 - or hydrocortisone - this is an over the counter medication - that is not as potent as the prescription medication - but should help to decrease the irritation on the skin that you have been treating - I want you to use this on the affected skin tissue three times daily x 10 days. 03/05/2016 App[facility]ment: [phone] [id number] (15 min) Moderate 03/05/2016 Patient Education: Patient Medication Summary Completed 03/05/2016 Visit Plan: COPD - chronic problem for this patient. We have reviewed chronic treatment strategy, symptom control, and plans for acute exacerbations. No changes today to the current treatment plan as the patient is stable, monitor for acute changes. anoro samples given to the patient 12/04/2015 Appointment: Scarlett Spring WPtel: [phone] [id number] (15 min) Moderate 12/04/2015 Patient Education: Patient Medication Summary Completed 12/04/2015 Patient Education: Obesity Completed 12/04/2015 Visit Plan: Hypertension - uncontrolled - the patient's medications have been modified as documented in the visit note. The patient has been counseled to cut back on salt in diet for a no added salt diet, low fat diet, start an exercise program with low weight bearing exercises and higher aerobic activity for heart health. The patient is to check blood pressure readings as an outpatient and either fax, call, or email the readings to the office next week for practitioner to review. The pt is to call for acute concerns. Allergies - chronic - recommended pt to use allergy medication as prescribed. Pt has been counseled as to the appropriate use of the medication. Pt to call if allergy symptoms are not controlled with the medication. If using nasal spray, instructions as follows: Nasal spray- use twice daily, one spray per nostril twice daily, after 30 minutes, rinse out nose with saline spray.. Use opposite hand per nostril to spray in the nasal steroid allergy spray. 11/18/2015 Appointment: Scarlett Sprign WPtel: [phone] [id number] (15 min) Moderate 11/18/2015 Patient Education: Patient Medication Summary Completed 11/18/2015 Patient Education: Obesity Completed 11/18/2015 Patient Education: Hypertension Completed 11/18/2015 Appointment: Scarlett Spring WPtel: [phone] [id number] (15 min) Moderate 11/07/2015 Visit Plan: Hypertension - well controlled - continue with current medications, continue with no added salt diet. Pt has been encouraged to exercise daily. The pt has been advised to call the office if there are any acute concerns about change in blood pressure readings at home. Edema - pt has been advised to elevate legs to prevent dependent edema, compression has been recommended to help to naturally decrease peripheral edema. Diuretic use has been discussed and pt has been instructed in appropriate use of such medication as necessary to further attempt to reduce peripheral edema. Dysuria-UA negative- will send in a RX for diflucan Nausea-check labs-recommend probiotic if diarrhea develops-call if symptoms do not resolve or if any worse 09/30/2015 Appointment: (15 min) Moderate 09/30/2015 Patient Education: Patient Medication Summary Completed 09/30/2015 Patient Education: Obesity Completed 09/30/2015 Patient Education: Hypertension Completed 09/30/2015 Visit Plan: MSSA of groin and under breasts-improving- finish bactrim and call if rash does not completely resolve 09/09/2015 Appointment: (15 min) Moderate 09/09/2015 Patient Education: Patient Medication Summary Completed 09/09/2015 Visit Plan: Rash - dermatophytosis - recommended oral diflucan, topical nystatin cream, rtc in 10 days to assure healing. check of culture - may need to consider treatment with antibiotic depending on the groin culture report. 08/28/2015 Appointment: Scarlett Spring WPtel: [id number] (15 min) Moderate 08/28/2015 Patient Education: Patient Medication Summary Completed 08/28/2015 Care Plan: Ariela CEM RTS Cultured from groin Pending 08/28/2015 Visit Plan: Hypertension - well controlled - continue with current medications, continue with no added salt diet. Pt has been encouraged to exercise daily. The pt has been advised to call the office if there are any acute concerns about change in blood pressure readings at home. Back pain - bolster pillow or lumbar support pillow to use when seated to help support your lower back - for sure want to use one when on a trip in a car. Esophageal Reflux - the patient has been counseled against excessive intake of caffeine, spicy foods, peppermint, and cinnamon - all of which can exacerbate esophageal reflux. The patient is to take medications as prescribed and call the office if the symptoms are not improving. 07/09/2015 Appointment: Scarlett Spring WPtel: [facility] (15 min) Moderate 07/09/2015 Patient Education: Patient Medication Summary Completed 07/09/2015 Patient Education: Hypertension Completed 07/09/2015 Visit Plan: Hypertension - well controlled - continue with current medications, continue with no added salt diet. Pt has been encouraged to exercise daily. The pt has been advised to call the office if there are any acute concerns about change in blood pressure readings at home. Insomnia - Pt has been advised to increase the light in the house during the day, and start dimming the lights during the evening hours. Pt has been advised to cut out caffeine after 5pm. Daytime napping worsens night time insomnia. Chronic Back pain - the patient was counseled to always first attempt to use modalities other than pain medication for alleviation of the muscle spasms and pain. The patient was also encouraged to continue with back exercises as previously directed. Pt is to use pain medication as directed. If pain medications are used inappropriately or early refills are requested, the patient understands that is a breech of trust/contract and could result in the patient's termination from this medical practice. Esophageal Reflux - the patient has been counseled against excessive intake of caffeine, spicy foods, peppermint, and cinnamon - all of which can exacerbate esophageal reflux. The patient is to take medications as prescribed and call the office if the symptoms are not improving. 03/06/2015 Appointment: Scarlett Spring WPtel: [address] [place], [place] [id number] [place] (S) New Patient 03/06/2015 Patient Education: Patient Medication Summary Completed 03/06/2015 Patient Education: Hypertension Completed 03/06/2015 Instructions Comment . Left knee pain, left calf pain - Will order x-ray, US - The pt is to use prn antiinflammatories to manage acute pain. The patient is to call the office if the pain is worsening or does not improve. . COPD - chronic problem for this patient. We have reviewed chronic treatment strategy, symptom control, and plans for acute exacerbations. No changes today to the current treatment plan as the patient is stable, monitor for acute changes. anoro samples given to the patient . Hypertension - well controlled - continue with current medications, continue with no added salt diet. Pt has been encouraged to exercise daily. The pt has been advised to call the office if there are any acute concerns about change in blood pressure readings at home. Atrial Fibrillation - pt on chronic anticoagulation and is currently rate controlled. The pt is to have labs done as appropriate to monitor medication levels and is to report if they start to feel as if their heart rate is becoming uncontrolled. . Hypertension - well controlled - continue with current medications, continue with no added salt diet. Pt has been encouraged to exercise daily. The pt has been advised to call the office if there are any acute concerns about change in blood pressure readings at home. Insomnia - Pt has been advised to increase the light in the house during the day , and start dimming the lights during the evening hours. Pt has been advised to cut out caffeine after 5pm. Daytime napping worsens night time insomnia. Chronic Back pain - the patient was counseled to always first attempt to use modalities other than pain medication for alleviation of the muscle spasms and pain. The patient was also encouraged to continue with back exercises as previously directed. Pt is to use pain medication as directed. If pain medications are used inappropriately or early refills are requested, the patient understands that is a breech of trust/contract and could result in the patient's termination from this medical practice. Esophageal Reflux - the patient has been counseled against excessive intake of caffeine, spicy foods, peppermint, and cinnamon - all of which can exacerbate esophageal reflux. The patient is to take medications as prescribed and call the office if the symptoms are not improving. . Hypertension - well controlled - continue with current medications, continue with no added salt diet. Pt has been encouraged to exercise daily. The pt has been advised to call the office if there are any acute concerns about change in blood pressure readings at home. cortisone q10 - or hydrocortisone - this is an over the counter medication - that is not as potent as the prescription medication - but should help to decrease the irritation on the skin that you have been treating - I want you to use this on the affected skin tissue three times daily x 10 days. CALL WEDNESDAY IF RASH NOT COMPLETELY RESOLVED . MSSA of groin and under [id number] bactrim and call if rash does not completely resolve Ibuprofen 600mg three times a s day as needed for rib pain Zithromax antibiotic - If your pain is getting worse, you feel more short of breath, or if you are not getting better get the chest x-ray and call me to let me know. Call with any questions or concerns. . URI - Pt advised to increase fluids, vitamin C. Discussed natural and expected course of this diagnosis and need to alert me if symptoms do not follow expected course, or if any worse. RX sent to patient's pharmacy. Allergies - chronic - recommended pt to use allergy medication as prescribed. Pt has been counseled as to the appropriate use of the medication. Pt to call if allergy symptoms are not controlled with the medication. If using nasal spray, instructions as follows: Nasal spray- use twice daily, one spray per nostril twice daily, after 30 minutes, rinse out nose with saline spray.. Use opposite hand per nostril to spray in the nasal steroid allergy spray. Rib/Back pain - The pt is to use prn antiinflammatories to manage acute pain. The patient is to call the office if the pain is worsening or does not improve. . Rash - dermatophytosis - recommended oral diflucan, topical nystatin cream, rtc in 10 days to assure healing. check of culture - may need to consider treatment with antibiotic depending on the groin culture report. . Atrial fibrillation - appt with dr. barney dempsey at 1pm - pt's ekg showed acute atrial fibrillation. Hypertension - well controlled - continue with current medications, continue with no added salt diet. Pt has been encouraged to exercise daily. The pt has been advised to call the office if there are any acute concerns about change in blood pressure readings at home. . Hypertension - well controlled - continue with current medications, continue with no added salt diet. Pt has been encouraged to exercise daily. The pt has been advised to call the office if there are any acute concerns about change in blood pressure readings at home. Rash - continue current treatment. Depression - RX for paroxetine . Hypertension - well controlled - continue with current medications, continue with no added salt diet. Pt has been encouraged to exercise daily. The pt has been advised to call the office if there are any acute concerns about change in blood pressure readings at home. Hyperlipidemia - pt has been counseled about appropriate diet, exercise, and need for low fat food choices. I have discussed the need for the patient to take medications as prescribed. If the patient has negative side effects from the medication, they are to CALL the office and not abruptly discontinue the medication without discussion with a practitioner in the office. We will check labs in 3-6 months for follow up on the patient's chronic medical problem and to assure normal liver response to medications. pneumovax and flu shot today mammogram order take two of the metroprolol succinate 25mg pills for a total of 50mg daily - when you current supply is gone, then fill the new RX for a Metoprolol succinate 50mg pill and take one pill daily. STOP your amlodipine. claritin 10mg daily x 1 month . Hypertension - uncontrolled - the patient's medications have been modified as documented in the visit note. The patient has been counseled to cut back on salt in diet for a no added salt diet, low fat diet, start an exercise program with low weight bearing exercises and higher aerobic activity for heart health. The patient is to check blood pressure readings as an outpatient and either fax , call, or email the readings to the office next week for practitioner to review. The pt is to call for acute concerns. Allergies - chronic - recommended pt to use allergy medication as prescribed. Pt has been counseled as to the appropriate use of the medication. Pt to call if allergy symptoms are not controlled with the medication. If using nasal spray, instructions as follows: Nasal spray- use twice daily, one spray per nostril twice daily, after 30 minutes, rinse out nose with saline spray.. Use opposite hand per nostril to spray in the nasal steroid allergy spray. . Hypertension - well controlled - continue with current medications, continue with no added salt diet. Pt has been encouraged to exercise daily. The pt has been advised to call the office if there are any acute concerns about change in blood pressure readings at home. Edema - pt has been advised to elevate legs to prevent dependent edema, compression has been recommended to help to naturally decrease peripheral edema. Diuretic use has been discussed and pt has been instructed in appropriate use of such medication as necessary to further attempt to reduce peripheral edema. Dysuria-UA negative-will send in a RX for diflucan Nausea-check labs-recommend probiotic if diarrhea develops-call if symptoms do not resolve or if any worse bolster pillow or lumbar support pillow to use when seated to help support your lower back - for sure want to use one when on a trip in a car. . Hypertension - well controlled - continue with current medications, continue with no added salt diet. Pt has been encouraged to exercise daily. The pt has been advised to call the office if there are any acute concerns about change in blood pressure readings at home. Back pain - bolster pillow or lumbar support pillow to use when seated to help support your lower back - for sure want to use one when on a trip in a car. Esophageal Reflux - the patient has been counseled against excessive intake of caffeine, spicy foods, peppermint, and cinnamon - all of which can exacerbate esophageal reflux. The patient is to take medications as prescribed and call the office if the symptoms are not improving. . Medicare Exam - today we discussed the patients past history, immunizations, preventative exams/evaluations - colonoscopy, fecal occult blood testing, routine labs for renal function, glucose, cholesterol, osteoporosis evaluations, cardiovascular testing and cancer screenings. We have also discussed mental health and the signs/symptoms of depression. The patient was advised of home safety evaluations and the need to make sure that as the aging process continues, we need to be aware of different ways to make the home a safer place to reside. The patient has also been counseled that exercise is necessary - and of utmost importance as we age to help decrease fall risk and to maintain independence in the home. Today we discussed the need for the patient to create paperwork for Advanced directives as well as for the patient to provide this office with a copy of her DOPA paperwork for health care surrogate. New onset A. Fib yesterday - Defer to cardiology . Hypertension - well controlled - continue with current medications, continue with no added salt diet. Pt has been encouraged to exercise daily. The pt has been advised to call the office if there are any acute concerns about change in blood pressure readings at home. Chronic Depression and anxiety - the pt has symptoms of chronic anxiety and depression that have been fairly well controlled since the last office visit. The pt has expected periods of exacerbation with abatement of the symptoms with change in situational exposure. No change in current medications. Arthritis- occasionally uncontrolled symptoms- recommend pt to take antiinflammatory as directed for pain control. Use tylenol for break through pain symptoms.
--- OUTSIDE RECORDS SUMMARY | 2017-10-27 14:59 | XMS REPORT | CCD ---
Author Author Scarlett Spring Organization Scarlett Spring MD, [facility] Address [address] [place] [address] Phone Care Team Providers Care Intake Worker Name Role Phone PP Unavailable CCM Unavailable Summary Purpose Interface Exchange Insurance Providers Payer name Policy type / Coverage type Covered alliance party ID Effective Begin Date Effective End Date WPS Medicare Part B Medicare Part B [id number] Unknown Unknown [employer] Medicare Part B [id number] Unknown Unknown Family history Mother Diagnosis Age At Onset Hypertension Unknown Heart Attack Unknown Brother Diagnosis Age At Onset Heart disease Unknown Runs in the family Diagnosis Age At Onset Heart disease Unknown Daughter Diagnosis Age At Onset Heart Attack Unknown Hyperlipidemia Unknown Hypertension Unknown Social History Social History Element Codes Description Effective Dates Number of children Unknown 2 daughter lives in [place], son - does not have contact [address]: 4235598 Quit over 10 years ago 1990 - previously smoked 2ppd x 25 years. 11/18/2015 Marital status Unknown in 201003/06/2015 Employment Unknown Retired was a [employer] 03/06/2015 Allergies, Adverse Reactions, Alerts Allergies, Adverse Reactions, Alerts data not found Past Medical History Illness Codes Condition Status Onset Date Resolved Date Encounter for general adult medical examination with abnormal findings ICD-9: V70.0 ICD-10: Z00.01 Active 02/03/2017 Unknown Essential (primary) hypertension ICD-9: 401.9 ICD-10: I10 Active 03/05/2015 Unknown Paroxysmal atrial fibrillation ICD-9: 427.31 ICD-10: [...] Active 09/29/2015 Unknown Methicillin susceptible Staphylococcus aureus infection as the cause of diseases classified elsewhere ICD-9: 041.11 ICD-10: B95.61 Active 09/08/2015 Unknown Methicillin susceptible Staphylococcus aureus infection, unspecified site ICD-9: 041.11 ICD-10: A49.01 Active 09/08/2015 Unknown Dermatophytosis, unspecified ICD-9: 110.9 [...] Problems Condition Codes Effective Dates Condition Status Encounter for general adult medical examination with abnormal findings ICD-9: V70.0 ICD-10: Z00.01 02/03/2017 Active Essential (primary) hypertension ICD-9: 401.9 ICD-10: I10 03/05/2015 Active Paroxysmal atrial fibrillation ICD-9: 427.31 ICD-10: [...] R11.0 09/29/2015 Active Methicillin susceptible Staphylococcus aureus infection as the cause of diseases classified elsewhere ICD-9: 041.11 ICD-10: B95.61 09/08/2015 Active Methicillin susceptible Staphylococcus aureus infection, unspecified site ICD-9: 041.11 ICD-10: A49.01 09/08/2015 Active Dermatophytosis, unspecified ICD-9: 110.9 ICD-10: [...] Start Date Stop Date Status Fill Instructions trazodone 50 mg tablet RxNorm: 572491 TAKE ONE TABLET BY MOUTH ONCE DAILY 08/18/2017 No Stop Date Active Ambien 10 mg tablet RxNorm: 894791 Tablet(s) TAKE ONE TABLET BY MOUTH AT BEDTIME 08/18/2017 10/16/2017 Active paroxetine 20 mg tablet RxNorm: 0850872 TAKE ONE TABLET BY MOUTH ONCE DAILY 07/27/2017 No Stop Date Active Ambien 10 mg tablet RxNorm: 213883 Tablet(s) TAKE ONE TABLET BY MOUTH AT BEDTIME 06/23/2017 08/15/2017 Inactive omeprazole 20 mg capsule,delayed release RxNorm: 435777 TAKE ONE CAPSULE BY MOUTH ONCE DAILY AT BEDTIME 04/23/20172017 Active trazodone 50 mg tablet RxNorm: 627995 TAKE ONE TABLET BY MOUTH ONCE DAILY 04/13/2017 08/10/2017 Inactive terazosin 5 mg capsule RxNorm: 501894 Capsule(s) TAKE ONE CAPSULE BY MOUTH DAILY 04/08/2017 03/03/2018 Active Ambien 10 mg tablet RxNorm: 657651 Tablet(s) TAKE ONE TABLET BY MOUTH AT BEDTIME 02/17/2017 2017 Inactive Tylenol-Codeine #3 300 mg-30 mg tablet RxNorm: 922346 1 Tablet(s) PO QID as needed 02/02/2017 03/03/2017 Inactive metoprolol succinate ER 50 mg tablet,extended release 24 hr RxNorm: 397843 TAKE ONE TABLET BY MOUTH ONCE DAILY 12/23/2016 02/02/2017 Inactive Zithromax Z-Ted 250 mg tablet RxNorm: 331071 1 Tablet(s) PO UD 11/26/2016 02/16/2017 Inactive trazodone 50 mg tablet RxNorm: 976585 TAKE ONE TABLET BY MOUTH ONCE DAILY 11/12/2016 03/11/2017 Inactive Ambien 10 mg tablet RxNorm: 859268 Tablet(s) TAKE ONE TABLET BY MOUTH AT BEDTIME 10/22/2016 02/15/2017 Inactive Protonix 40 mg tablet,delayed release RxNorm: 037424 1 Tablet(s) PO daily 09/16/2016 03/14/2017 Inactive sucralfate 1 gram tablet RxNorm: 471958 1 Tablet(s) PO TID 01/13/2017 Inactive paroxetine 20 mg tablet RxNorm: 1013401 1 Tablet(s) PO daily TAKE ONE TABLET BY MOUTH DAILY 09/16/2016 06/12/2017 Inactive meloxicam 7.5 mg tablet RxNorm: 981180 1 Tablet(s) PO daily 11/14/2016 Inactive Ambien 10 mg tablet RxNorm: 941133 Tablet(s) TAKE ONE TABLET BY MOUTH AT BEDTIME 08/24/2016 10/21/2016 Inactive trazodone 50 mg tablet RxNorm: 433052 Tablet(s) TAKE ONE TABLET BY MOUTH DAILY 07/29/2016 11/11/2016 Inactive Ambien 10 mg tablet RxNorm: 074332 TAKE ONE TABLET BY MOUTH AT BEDTIME 06/23/2016 07/21/2016 Inactive Ambien 10 mg tablet RxNorm: 223684 Tablet(s) TAKE ONE TABLET BY MOUTH EVERY NIGHT AT BEDTIME 06/22/2016 06/23/2016 Inactive Ambien 10 mg tablet RxNorm: 648891 Tablet(s) TAKE ONE TABLET BY MOUTH EVERY NIGHT AT BEDTIME 04/03/2016 05/31/2016 Inactive Lasix 40 mg tablet RxNorm: 078732 1 Tablet(s) PO daily as needed for swelling 04/03/2016 09/15/2016 Inactive potassium chloride ER 20 mEq tablet,extended release RxNorm: 499150 1 Tablet(s) PO daily for swelling take with lasix as needed 04/03/2016 09/15/2016 Inactive omeprazole 20 mg capsule,delayed release RxNorm: 294260 TAKE ONE CAPSULE BY MOUTH EVERY NIGHT AT BEDTIME 03/31/20162016 Inactive paroxetine 20 mg tablet RxNorm: 6496563 TAKE ONE TABLET BY MOUTH DAILY 03/31/2016 09/15/2016 Inactive trazodone 50 mg tablet RxNorm: 654506 TAKE ONE TABLET BY MOUTH DAILY 03/20/2016 07/28/2016 Inactive terazosin 5 mg capsule RxNorm: 457277 TAKE ONE CAPSULE BY MOUTH DAILY 03/06/2016 10/06/2016 Inactive Ambien 10 mg tablet RxNorm: 279553 Tablet(s) TAKE ONE TABLET BY MOUTH EVERY NIGHT AT BEDTIME 01/17/2016 04/02/2016 Inactive loratadine 10 mg tablet RxNorm: 659235 1 Tablet(s) PO daily 09/15/2016 Inactive mupirocin 2 % topical ointment RxNorm: 815899 1 Application TOP TID 11/18/2015 12/01/2015 Inactive metoprolol succinate ER 50 mg tablet,extended release 24 hr RxNorm: 815326 1 Tablet(s) PO daily 11/18/2015 11/11/2016 Inactive loratadine 10 mg tablet RxNorm: 672326 1 Tablet(s) PO daily 01/14/2016 Inactive Lasix 40 mg tablet RxNorm: 336163 1 Tablet(s) PO daily as needed for swelling 10/30/2015 11/28/2015 Inactive potassium chloride ER 20 mEq tablet,extended release RxNorm: 047508 1 Tablet(s) PO daily for swelling take with lasix as needed 10/30/2015 11/28/2015 Inactive Tylenol-Codeine #3 300 mg-30 mg tablet RxNorm: 700426 1 Tablet(s) PO QID as needed 10/25/2015 02/01/2017 Inactive Ambien 10 mg tablet RxNorm: 971802 Tablet(s) TAKE ONE TABLET BY MOUTH EVERY NIGHT AT BEDTIME 10/18/2015 01/13/2016 Inactive Diflucan 150 mg tablet RxNorm: 623837 1 Tablet(s) PO daily 02/201612/03/2015 Inactive Lasix 20 mg tablet RxNorm: 518660 1 Tablet(s) PO PRN fror swelling 09/27/2015 10/29/2015 Inactive potassium chloride ER 10 mEq capsule,extended release RxNorm: 841357 1 Capsule(s) PO PRN for swelling take with lasix 09/27/2015 10/29/2015 Inactive Bactrim DS 800 mg-160 mg tablet RxNorm: 144991 1 Tablet(s) PO BID 09/02/2015 09/11/2015 Inactive Bactrim DS 800 mg-160 mg tablet RxNorm: 020342 1 Tablet(s) PO BID 09/02/2015 09/01/2015 Inactive nystatin 100,000 unit/gram topical cream RxNorm: 616325 1 Gram(s) TOP TID 08/28/2015 09/26/2015 Inactive Diflucan 150 mg tablet RxNorm: 175677 1 Tablet(s) PO daily 09/201509/06/2015 Inactive betamethasone dipropionate 0.05 % topical ointment RxNorm: 383534 1 Application TOP TID to affected area 08/02/20152016 Inactive nystatin 100,000 unit/gram topical powder RxNorm: 320385 1 Gram(s) TOP QID 07/09/2015 08/01/2015 Inactive Ambien 10 mg tablet RxNorm: 712932 1 Tablet(s) PO QHS 201406/18/2015 Inactive Ambien 10 mg tablet RxNorm: 547122 TAKE ONE TABLET BY MOUTH EVERY NIGHT AT BEDTIME 06/19/2015 09/16/2015 Inactive Vitamin D2 50,000 unit capsule RxNorm: 516860 1 Capsule(s) PO QW 03/07/2015 03/06/2015 Inactive Vitamin D2 50,000 unit capsule RxNorm: 464607 1 Capsule(s) PO QW 03/07/2015 05/05/2015 Inactive terazosin 5 mg capsule RxNorm: 315818 1 Capsule(s) PO daily 06/201502/28/2016 Inactive [SAVINGS FOR NON-COVERED DRUGS -- BIN:[id number], PCN: [id number], Group: XXXXX, ID# [id number], Questions: . THIS IS NOT INSURANCE.] trazodone 50 mg tablet RxNorm: 684767 1 Tablet(s) PO daily 06/201502/28/2016 Inactive paroxetine 20 mg tablet RxNorm: 2059476 1 Tablet(s) PO daily 02/28/2016 Inactive Tylenol-Codeine #3 300 mg-30 mg tablet RxNorm: 079925 1 Tablet(s) PO QID as needed 03/06/2015 07/02/2015 Inactive amlodipine 10 mg tablet RxNorm: 697603 1 Tablet(s) PO daily 06/201511/17/2015 Inactive metoprolol succinate ER 25 mg tablet,extended release 24 hr RxNorm: 718635 1 Tablet(s) PO daily 03/06/2015 11/17/2015 Inactive omeprazole 20 mg capsule,delayed release RxNorm: 764686 1 Capsule(s) PO QHS 03/06/2015 02/28/2016 Inactive omeprazole 20 mg capsule,delayed release RxNorm: 711628 1 Capsule(s) PO QHS 01/31/2015 01/30/2015 Inactive omeprazole 20 mg capsule,delayed release RxNorm: 375524 1 Capsule(s) PO QHS 01/31/2015 01/30/2015 Inactive omeprazole 20 mg capsule,delayed release RxNorm: 613334 1 Capsule(s) PO QHS 01/31/2015 03/05/2015 Inactive Ambien 10 mg tablet RxNorm: 193392 1 Tablet(s) PO QHS 201404/21/2015 Inactive paroxetine 20 mg tablet RxNorm: 276730 1 Tablet(s) PO daily 08/201412/24/2014 Inactive Ambien 10 mg tablet RxNorm: 473561 1 Tablet(s) PO QHS 201412/24/2014 Inactive paroxetine 20 mg tablet RxNorm: 985311 1 Tablet(s) PO daily 08/201403/05/2015 Inactive terazosin 5 mg capsule RxNorm: 811141 1 Capsule(s) PO daily 07/201403/05/2015 Inactive [SAVINGS FOR NON-COVERED DRUGS -- BIN:[id number], PCN: ASPROD1, Group: XXXXX, ID# [id number], Questions: . THIS IS NOT INSURANCE.] terazosin 5 mg capsule RxNorm: 421776 1 Capsule(s) PO daily 07/201411/22/2014 Inactive Lasix 20 mg tablet RxNorm: 712098 1 Tablet(s) PO daily No Start Date Active K-Dur 10 mEq tablet,extended release RxNorm: 648901 1 Tablet(s) PO daily No Start Date Active Eliquis 5 mg tablet RxNorm: 7709950 1 Tablet(s) PO BID No Start Date Active Vitamin D3 2,000 unit tablet RxNorm: 984422 1 Tablet(s) PO daily No Start Date Active isosorbide mononitrate ER 30 mg tablet,extended release 24 hr RxNorm: 446028 1 Tablet(s) PO daily No Start Date Active Zetia 10 mg tablet RxNorm: 917838 1 Tablet(s) PO daily No Start Date Active Lipitor 80 mg tablet RxNorm: 976905 1/2 Tablet(s) PO daily No Start Date Active metoprolol succinate ER 100 mg tablet,extended release 24 hr RxNorm: 751136 1 Tablet(s) PO daily No Start Date Active metoprolol succinate ER 25 mg tablet,extended release 24 hr RxNorm: 171110 1 Tablet(s) PO daily No Start Date 2014 Inactive betamethasone dipropionate 0.05 % topical ointment RxNorm: 470172 1 Application TOP TID to affected area No Start Date 01/2016 Inactive trazodone 50 mg tablet RxNorm: 400557 1 Tablet(s) PO daily No Start Date 03/05/2015 Inactive potassium chloride ER 10 mEq capsule,extended release RxNorm: 672679 1 Capsule(s) PO PRN for swelling take with lasix No Start Date 09/26/2015 Inactive amlodipine 10 mg tablet RxNorm: 578839 1 Tablet(s) PO daily No Start Date 03/05/2015 Inactive aspirin 81 mg tablet,delayed release RxNorm: 878264 1 Tablet(s) PO daily No Start Date 02/02/2017 Inactive Lasix 20 mg tablet RxNorm: 764119 1 Tablet(s) PO PRN fror swelling No Start Date 09/26/2015 Inactive Crestor 40 mg tablet RxNorm: 763011 1 Tablet(s) PO daily No Start Date 09/15/2016 Inactive Medication Administered No Medication Administered data Immunizations Vaccine Codes Date Status Influenza CVX: 141 04/08/2016 completed Pneumococcal (Adult) CVX: 133 04/08/2016 completed Assessments Condition Codes Effective Dates Encounter for general adult medical examination with abnormal findings ICD-10: Z00.01 ICD-9: V70.0 02/03/2017 Paroxysmal atrial fibrillation ICD-10: I48.0 ICD-9: 427.31 02/02/2017 Essential (primary) hypertension ICD-10: I10 ICD-9: 401.9 02/02/2017 Acute laryngopharyngitis ICD-10: J06.0 ICD-9: 465.0 [...] Visit Reason For Visit Effective Dates Notes Annual Medicare Wellness Exam 02/03/2017 hypertension 02/02/2017 sinus congestion 11/26/2016 hypertension 10/07/2016 hypertension 09/16/2016 knee pain 09/07/2016 dyspnea 04/08/2016 dyspnea 03/05/2016 dyspnea 12/04/2015 edema 11/18/2015 edema 09/30/2015 rash 09/09/2015 rash 08/28/2015 back pain 07/09/2015 back pain 03/06/2015 Results Observation Observation Code Item Item Code Result Date Comp Metabolic Tsx840 NA 137 mEq/L 09/30/2015 Comp Metabolic Isu709 K 4.5 mEq/L 09/30/2015 Comp Metabolic Mrn929 CL 102 mEq/L 09/30/2015 Comp Metabolic Nse750 CO2 26.0 mEq/L 09/30/2015 Comp Metabolic Moz678 ANION GAP 14 09/30/2015 Comp Metabolic Xue623 GLUCOSE 89 mg/dL 09/30/2015 Comp Metabolic Zme015 Creat 0.8 mg/dL 09/30/2015 Comp Metabolic Mok853 eGFR 79 ml/min/1.73m2 09/30/2015 Comp Metabolic Zpk590 BUN 14 mg/dL 09/30/2015 Comp Metabolic Cpn491 B/C Ratio 18.2 Ratio 09/30/2015 Comp Metabolic Iap891 CALCIUM 8.9 mg/dL 09/30/2015 Comp Metabolic Lnn971 ALK PHOS 65 U/L 09/30/2015 Comp Metabolic Cfk515 AST(SGOT) 26 U/L 09/30/2015 Comp Metabolic Izj387 ALT(SGPT) 18 U/L 09/30/2015 Comp Metabolic Fwj954 BILI T 0.6 mg/dL 09/30/2015 Comp Metabolic Zou495 ALBUMIN 3.8 g/dL 09/30/2015 Comp Metabolic Ehr278 TPRO 6.6 g/dL 09/30/2015 Comp Metabolic Kbt738 GLOB 2.8 g/dL 09/30/2015 Comp Metabolic Srk410 A/G Ratio 1.4 Ratio 09/30/2015 Comp Metabolic Ovm065 Osmo 274 mOsmo 09/30/2015 Cbc With Differential [...] 27.7 pg 09/30/2015 Cbc With Differential Ord2 [place]% 10.7 % 09/30/2015 Cbc With Differential Ord2 [...] 1.10 K/ul 09/30/2015 Cbc With Differential Ord2 [place] ABS# 0.6 K/ul 09/30/2015 Cbc With Differential Ord2 Eos ABS# 0.2 K/ul 09/30/2015 Cbc With Differential Ord2 Baso ABS# 0.0 K/ul 09/30/2015 Cbc With Differential Ord2 New Analyzer Notice Please note new ref ranges starting 08-07-2015 due to implemntation of new five part differential hematolgy analyzer. 09/30/2015 Tsh Ord6 hTSH II 1.05 uIU/mL 03/06/2015 Comp Metabolic Mxj776 NA 137 mEq/L 03/06/2015 Comp Metabolic Cop618 K 4.3 mEq/L 03/06/2015 Comp Metabolic Trj924 CL 104 mEq/L 03/06/2015 Comp Metabolic Exk499 CO2 28.0 mEq/L 03/06/2015 Comp Metabolic Chb487 ANION GAP 9 03/06/2015 Comp Metabolic Ugf144 GLUCOSE 93 mg/dL 03/06/2015 Comp Metabolic Osu202 Creat 0.8 mg/dL 03/06/2015 Comp Metabolic Jnv955 eGFR 81 ml/min/1.73m2 03/06/2015 Comp Metabolic Cpb914 BUN 12 mg/dL 03/06/2015 Comp Metabolic Hjq497 B/C Ratio 16.0 Ratio 03/06/2015 Comp Metabolic Wyl045 CALCIUM 8.9 mg/dL 03/06/2015 Comp Metabolic Pow785 ALK PHOS 56 U/L 03/06/2015 Comp Metabolic Oww486 AST(SGOT) 22 U/L 03/06/2015 Comp Metabolic Yly628 ALT(SGPT) 15 U/L 03/06/2015 Comp Metabolic Yiz712 BILI T 0.4 mg/dL 03/06/2015 Comp Metabolic Bbf217 ALBUMIN 4.0 g/dL 03/06/2015 Comp Metabolic Ett339 TPRO 6.5 g/dL 03/06/2015 Comp Metabolic Usk854 GLOB 2.5 g/dL 03/06/2015 Comp Metabolic Yac059 A/G Ratio 1.6 Ratio 03/06/2015 Comp Metabolic Beq272 Osmo 273 mOsmo 03/06/2015 Vitamin D 25 Oh Lgk3515 VITAMIN D, 25 HYDROXY 28.14 ng/mL Cbc [...] Result Effective Dates Constitutional No recent illness 2016 Constitutional No [...] G0008 04/08/2016 ADMIN PNEUMOCOCCAL VACCINE SNOMED CT: 36382972 CPT-4: G0009 04/08/2016 PNEUMOCOCCAL VACC [address]: 69974314 CPT-4: 45990 04/08/2016 FLU VACC PRSV FREE INC ANTIG CPT-4: 16668 04/08/2016 Vital Signs Date Vital 02/03/2017 Blood Pressure 1: 138/72 Code : 8480-6 BMI: 41.2 Code : 58416-4 Heart Rate 1 : 96 bpm Height: 5'7" SpO2: 97% Weight: 263 lbs 02/02/2017 Blood Pressure 1: 140/90 Code : 8480-6 BMI: 41.2 Code : 44230-7 Heart Rate 1 : 103 bpm Height: 5'7" SpO2: 94% Weight: 263 lbs 11/26/2016 Blood Pressure 1: 152/88 Code : 8480-6 BMI: 41.0 Code : 08844-9 Heart Rate 1 : 71 bpm Height: 5'7" SpO2: 94% Temperature: 37.7 (C) / 99.8 (F) Weight: 262 lbs 10/07/2016 Blood Pressure 1: 148/82 Code : 8480-6 BMI: 41.7 Code : 40637-9 Heart Rate 1 : 58 bpm Height: 5'7" SpO2: 96% Weight: 266 lbs 09/16/2016 Blood Pressure 1: 122/70 Code : 8480-6 BMI: 42.0 Code : 14038-8 Heart Rate 1 : 65 bpm Height: 5'7" SpO2: 96% Weight: 268 lbs 09/07/2016 Blood Pressure 1: 154/60 Code : 8480-6 BMI: 42.3 Code : 56578-8 Heart Rate 1 : 101 bpm Height: 5'7" SpO2: 97% Weight: 270 lbs 04/08/2016 Blood Pressure 1: 128/70 Code : 8480-6 BMI: 41.4 Code : 31455-3 Heart Rate 1 : 62 bpm Height: 5'7" SpO2: 95% Weight: 264 lbs 8 oz 03/05/2016 Blood Pressure 1: 144/78 Code : 8480-6 Blood Pressure 1: 139/72 Code: 8480-6 BMI: 41.9 Code: 74666-5 Heart Rate 1: 71 bpm Height: 5'7" SpO2: 93% Weight: 267 lbs 8 oz 12/04/2015 Blood Pressure 1: 132/70 Code : 8480-6 BMI: 41.3 Code : 53483-5 Heart Rate 1 : 56 bpm Height: 5'7" SpO2: 96% Weight: 264 lbs 11/18/2015 Blood Pressure 1: 138/72 Code : 8480-6 BMI: 41.0 Code : 03512-7 Heart Rate 1 : 85 bpm Height: 5'7" SpO2: 93% Weight: 262 lbs 09/30/2015 Blood Pressure 1: 128/76 Code : 8480-6 BMI: 41.2 Code : 81554-5 Heart Rate 1 : 70 bpm Height: 5'7" SpO2: 93% Weight: 263 lbs 09/09/2015 Blood Pressure 1: 138/80 Code : 8480-6 BMI: 40.3 Code : 29407-9 Heart Rate 1 : 84 bpm Height: 5'7" SpO2: 95% Weight: 257 lbs 08/28/2015 Blood Pressure 1: 122/72 Code : 8480-6 BMI: 39.6 Code : 60936-4 Heart Rate 1 : 75 bpm Height: 5'7" SpO2: 96% Weight: 253 lbs 07/09/2015 Blood Pressure 1: 135/78 Code : 8480-6 Blood Pressure 1: 140/78 Code: 8480-6 BMI: 39.5 Code: 57169-1 Heart Rate 1: 62 bpm Height: 5'7" SpO2: 95% Weight: 252 lbs 03/06/2015 Blood Pressure 1: 142/88 Code : 8480-6 BMI: 39.3 Code : 53349-7 Heart Rate 1 : 65 bpm Height: 5'7" SpO2: 95% Weight: 251 lbs Functional Status No Functional Status data History of Present Illness Symptom Name Status Result Effective Date Notes Annual Medicare Wellness Exam Alcohol Use does [...] rash Onset of Symptom 2 weeks ago 07/09/2015June rash Timing of Episodes in the summer [...] data Encounters Encounter Performer Location Codes Date ([id number]) [id number] EST. PATIENT, LEVEL IV Diagnosis: Paroxysmal atrial fibrillation[ICD10: I48.0] Diagnosis: Essential (primary) hypertension[ICD10: I10] Scarlett Spring MD, [facility] CPT-4: 73616 02/02/2017 48675 EST. PATIENT, LEVEL III Diagnosis: Acute laryngopharyngitis[ICD10: J06.0] Diagnosis: Cough[ICD10: R05] Diagnosis: Pleurodynia[ICD10: R07.81] Diagnosis: Other dorsalgia[ICD10: M54.89] Kassandra Spring MD, [facility] CPT-4 : 01225 11/26/2016 [id number]) 83420 EST. PATIENT, LEVEL IV Diagnosis: Essential (primary) hypertension[ICD10: I10] Diagnosis: Pain in left knee[ICD10: M25.562] Diagnosis: Low back pain[ICD10: M54.5] Diagnosis: Major depressive disorder, recurrent, moderate[ICD10: F33.1] Scarlett Spring MD, [facility] CPT-4: 98822 10/07/2016 [id number]) 42401 EST. PATIENT, LEVEL IV Diagnosis: Essential (primary) hypertension[ICD10: I10] Diagnosis: Rash and other nonspecific skin eruption[ICD10: R21] Diagnosis: Major depressive disorder, recurrent, mild[ICD10: F33.0] Scarlett Spring MD, [facility] CPT-4: 64887 09/16/2016 48494 EST. PATIENT, LEVEL IV Diagnosis: Pain in left lower leg[ICD10: M79.662] Diagnosis: Pain in left knee[ICD10: M25.562] Kassandra Spring MD, [facility] CPT -4: 83920 09/07/2016 [id number]) 73176 EST. PATIENT, LEVEL IV Diagnosis: Encounter for immunization[ICD10: Z23] Diagnosis: Essential (primary) hypertension[ICD10: I10] Diagnosis: Mixed hyperlipidemia[ICD10: E78.2] Scarlett Spring MD, [facility] CPT-4: 29821 04/08/2016 ([id number]) 01744 EST. PATIENT, LEVEL III Diagnosis: Essential (primary) hypertension[ICD10: I10] Diagnosis: Shortness of breath[ICD10: R06.02] Scarlett Spring MD [facility] CPT-4: 65419 03/05/2016 ([id number]) 48683 EST. PATIENT, LEVEL III Diagnosis: Chronic obstructive pulmonary disease, unspecified[ICD10: J44.9] Scarlett Spring MD [facility] CPT-4: 00832 12/04/2015 ([id number]) 49981 EST. PATIENT, LEVEL IV Diagnosis: Essential (primary) hypertension[ICD10: I10] Diagnosis: Allergic rhinitis due to pollen[ICD10: J30.1] Scarlett Spring MD [facility] CPT-4: 88906 11/18/2015 ([id number]) 06079 EST. PATIENT, LEVEL IV Diagnosis: Localized edema[ICD10: R60.0] Diagnosis: Dysuria[ICD10: R30.0] Diagnosis: Essential (primary) hypertension[ICD10: I10] Diagnosis: Nausea[ICD10: R11.0] Alis Spring MD, [facility] CPT-4: 76548 09/30/2015 ([id number]) 80278 EST. PATIENT, LEVEL II Diagnosis: Methicillin susceptible Staphylococcus aureus infection as the cause of diseases classified elsewhere[ICD10: B95.61] Diagnosis: Methicillin susceptible Staphylococcus aureus infection, unspecified site[ICD10: A49.01] Alis Spring MD, [facility] CPT-4: 49107 09/09/2015 ([id number]) 77959 EST. PATIENT, LEVEL III Diagnosis: Dermatophytosis, unspecified[ICD10: B35.9] Diagnosis: Rash and other nonspecific skin eruption[ICD10: R21] Scarlett Spring MD, [facility] CPT-4: 96977 08/28/2015 ([id number]) 75509 EST. PATIENT, LEVEL IV Diagnosis: Essential (primary) hypertension[ICD10: I10] Diagnosis: Gastro-esophageal reflux disease without esophagitis[ICD10: K21.9] Diagnosis: Other dorsalgia[ICD10: M54.89] [facility] CPT- 4: 28676 07/09/2015 ([id number]) OFFICE VISIT, NEW - LEVEL 4 Diagnosis: ESSENTIAL HYPERTENSION[ICD9: 401.9] Diagnosis: Osteoporosis[ICD9: 733.00] Diagnosis: Back pain[ICD9: 724.5] Diagnosis: Insomnia[ICD9: 780.52] Diagnosis: ESOPHAGEAL REFLUX[ICD9: 530.81] [facility] CPT- 4: 63643 03/06/2015 Plan of Care Planned Activity Notes Codes Status Date Visit Plan: Medicare Exam - today we [...] to cardiology 02/03/2017 Appointment: Kassandra Argueta WPtel: [address] [place], [place] [id number] [facility] - Annual Wellness Visit 02/03/2017 Patient [...] at home. 02/02/2017 [phone] [facility] (15 min) Moderate 02/02/2017 Patient Education: Patient [...] improve. 11/26/2016 Appointment[phone] (30 min) Complex 11/26/2016 Patient Education: Patient [...] symptoms. 10/07/2016 App[facility]ment: Scar[phone] [facility] (15 min) Moderate 10/07/2016 Patient Education: Patient Medication Summary Completed 10/07/2016 Patient Education: Obesity Completed 10/07/2016 Patient Education: Hypertension Completed 10/07/2016 Care Plan: VASCULAR STUDY Pending 10/04/2016 Care Plan: X-RAY EXAM OF KNEE 3 [facility] : 76695-6 Pending 10/04/2016 Visit Plan: Hypertension - well [...] for paroxetine 09/16/2016 Appointment: Scarlett Spring [facility] [phone] [facility] [place] (15 min) Moderate 09/16/2016 Patient [...] not improve. 09/07/2016 Appointment: [phone] [facility] [place] (10 min) Simple 09/07/2016 Patient Education: Patient [...] mammogram order 04/08/2016 Appointment: Scar[facility] Spring [facility] [phone] [facility] (15 min) Moderate 04/08/2016 Patient Education: [...] 10 days. 03/05/2016 Appointment: Scarlett Spring WPtel: [phone] [facility] (15 min) Moderate 03/05/2016 Patient Education: Patient Medication Summary Completed 03/05/2016 Visit Plan: COPD - chronic problem for this patient. We have reviewed chronic treatment strategy, symptom control, and plans for acute exacerbations. No changes today to the current treatment plan as the patient is stable, monitor for acute changes. anoro samples given to the patient 12/04/2015 Appointment: Scarlett Spring WPtel: [phone] [facility] (15 min) Moderate 12/04/2015 Patient Education: [...] nasal steroid allergy spray. 11/18/2015 Appointment: Scarlett Spring WPtel: [phone] (15 min) Moderate 11/18/2015 Patient Education: Patient Medication Summary Completed 11/18/2015 Patient Education: Obesity Completed 11/18/2015 Patient Education: Hypertension Completed 11/18/2015 Appointment: Scarlett Spring WPtel: [address] (15 min) Moderate 11/07/2015 Visit Plan: Hypertension [...] culture report. 08/28/2015 Appointment: Scarlett Spring WPtel: [address] (15 min) Moderate 08/28/2015 Patient Education: Patient Medication Summary Completed 08/28/2015 Care Plan: Ariela PRIEST RTS Cultured from groin Pending 08/28/2015 Visit [...] not improving. 07/09/2015 [facility]ment[facility] ([facility] Moderate 07/09/2015 Patient Education: Patient [...] not improving. 03/06/2015 Appointment: Scarlett Spring WPtel: [address] [place], [place] [id number] [place] ([place]) New Patient 03/06/2015 Patient Education: [...] RESOLVED . MSSA of groin and under ugowcih-gpyaeblzq-gynxap bactrim and call if rash does not [...] . Atrial fibrillation - appt with dr. corley [...]
--- OUTSIDE RECORDS SUMMARY | 2017-10-27 15:01 | XMS REPORT | CCD ---
Author Author Scarlett Spring Organization Scarlett Spring MD, [facility] Address [address] [place] [address] Phone Care Team Providers Care Childcare Provider Name Role Phone PP Unavailable CCM Unavailable Summary Purpose Interface Exchange Insurance Providers Payer name Policy type / Coverage type Covered republican ID Effective Begin Date Effective End Date WPS Medicare Part B Medicare Part B [id number] Unknown Unknown [employer] Medicare Part B [id number] Unknown Unknown Family history Mother Diagnosis Age At Onset Hypertension Unknown Heart Attack Unknown Brother Diagnosis Age At Onset Heart disease Unknown Runs in the family Diagnosis Age At Onset Heart disease Unknown Daughter Diagnosis Age At Onset Heart Attack Unknown Hyperlipidemia Unknown Hypertension Unknown Social History Social History Element Codes Description Effective Dates Number of children Unknown 2 daughter lives in [place], son - does not have contact [address]: 3285121 Quit over 10 years ago 1990 - previously smoked 2ppd x 25 years. 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 [employer] 03/06/2015 Allergies, Adverse Reactions, Alerts Allergies, Adverse [...] Start Date Stop Date Status Fill Instructions paroxetine 20 mg tablet RxNorm: 5137944 TAKE ONE TABLET BY MOUTH ONCE DAILY 07/27/2017 No Stop Date Active Ambien 10 mg tablet RxNorm: 714608 Tablet(s) TAKE ONE TABLET BY MOUTH AT BEDTIME 06/23/2017 08/15/2017 Inactive omeprazole 20 mg capsule,delayed release RxNorm: 113816 TAKE ONE CAPSULE BY MOUTH ONCE DAILY AT BEDTIME 04/23/20172017 Active trazodone 50 mg tablet RxNorm: 814660 TAKE ONE TABLET BY MOUTH ONCE DAILY 04/13/2017 08/10/2017 Inactive terazosin 5 mg capsule RxNorm: 127506 Capsule(s) TAKE ONE CAPSULE BY MOUTH DAILY 04/08/2017 03/03/2018 Active Ambien 10 mg tablet RxNorm: 936086 Tablet(s) TAKE ONE TABLET BY MOUTH AT BEDTIME 02/17/2017 2017 Inactive Tylenol-Codeine #3 300 mg-30 mg tablet RxNorm: 715397 1 Tablet(s) PO QID as needed 02/02/2017 03/03/2017 Inactive metoprolol succinate ER 50 mg tablet,extended release 24 hr RxNorm: 485109 TAKE ONE TABLET BY MOUTH ONCE DAILY 12/23/2016 02/02/2017 Inactive Zithromax Z-Ted 250 mg tablet RxNorm: 004803 1 Tablet(s) PO UD 11/26/2016 02/16/2017 Inactive trazodone 50 mg tablet RxNorm: 607410 TAKE ONE TABLET BY MOUTH ONCE DAILY 11/12/2016 03/11/2017 Inactive Ambien 10 mg tablet RxNorm: 853837 Tablet(s) TAKE ONE TABLET BY MOUTH AT BEDTIME 10/22/2016 02/15/2017 Inactive Protonix 40 mg tablet,delayed release RxNorm: 243171 1 Tablet(s) PO daily 09/16/2016 03/14/2017 Inactive sucralfate 1 gram tablet RxNorm: 220308 1 Tablet(s) PO TID 01/13/2017 Inactive paroxetine 20 mg tablet RxNorm: 4218732 1 Tablet(s) PO daily TAKE ONE TABLET BY MOUTH DAILY 09/16/2016 06/12/2017 Inactive meloxicam 7.5 mg tablet RxNorm: 851393 1 Tablet(s) PO daily 11/14/2016 Inactive Ambien 10 mg tablet RxNorm: 273521 Tablet(s) TAKE ONE TABLET BY MOUTH AT BEDTIME 08/24/2016 10/21/2016 Inactive trazodone 50 mg tablet RxNorm: 264578 Tablet(s) TAKE ONE TABLET BY MOUTH DAILY 07/29/2016 11/11/2016 Inactive Ambien 10 mg tablet RxNorm: 995490 TAKE ONE TABLET BY MOUTH AT BEDTIME 06/23/2016 07/21/2016 Inactive Ambien 10 mg tablet RxNorm: 529594 Tablet(s) TAKE ONE TABLET BY MOUTH EVERY NIGHT AT BEDTIME 06/22/2016 06/23/2016 Inactive Ambien 10 mg tablet RxNorm: 985636 Tablet(s) TAKE ONE TABLET BY MOUTH EVERY NIGHT AT BEDTIME 04/03/2016 05/31/2016 Inactive Lasix 40 mg tablet RxNorm: 218142 1 Tablet(s) PO daily as needed for swelling 04/03/2016 09/15/2016 Inactive potassium chloride ER 20 mEq tablet,extended release RxNorm: 104940 1 Tablet(s) PO daily for swelling take with lasix as needed 04/03/2016 09/15/2016 Inactive omeprazole 20 mg capsule,delayed release RxNorm: 635112 TAKE ONE CAPSULE BY MOUTH EVERY NIGHT AT BEDTIME 03/31/20162016 Inactive paroxetine 20 mg tablet RxNorm: 4537878 TAKE ONE TABLET BY MOUTH DAILY 03/31/2016 09/15/2016 Inactive trazodone 50 mg tablet RxNorm: 706510 TAKE ONE TABLET BY MOUTH DAILY 03/20/2016 07/28/2016 Inactive terazosin 5 mg capsule RxNorm: 632509 TAKE ONE CAPSULE BY MOUTH DAILY 03/06/2016 10/06/2016 Inactive Ambien 10 mg tablet RxNorm: 627451 Tablet(s) TAKE ONE TABLET BY MOUTH EVERY NIGHT AT BEDTIME 01/17/2016 04/02/2016 Inactive loratadine 10 mg tablet RxNorm: 882522 1 Tablet(s) PO daily 09/15/2016 Inactive mupirocin 2 % topical ointment RxNorm: 147102 1 Application TOP TID 11/18/2015 12/01/2015 Inactive metoprolol succinate ER 50 mg tablet,extended release 24 hr RxNorm: 875766 1 Tablet(s) PO daily 11/18/2015 11/11/2016 Inactive loratadine 10 mg tablet RxNorm: 540697 1 Tablet(s) PO daily 01/14/2016 Inactive Lasix 40 mg tablet RxNorm: 981530 1 Tablet(s) PO daily as needed for swelling 10/30/2015 11/28/2015 Inactive potassium chloride ER 20 mEq tablet,extended release RxNorm: 247851 1 Tablet(s) PO daily for swelling take with lasix as needed 10/30/2015 11/28/2015 Inactive Tylenol-Codeine #3 300 mg-30 mg tablet RxNorm: 974679 1 Tablet(s) PO QID as needed 10/25/2015 02/01/2017 Inactive Ambien 10 mg tablet RxNorm: 769331 Tablet(s) TAKE ONE TABLET BY MOUTH EVERY NIGHT AT BEDTIME 10/18/2015 01/13/2016 Inactive Diflucan 150 mg tablet RxNorm: 730586 1 Tablet(s) PO daily 02/201612/03/2015 Inactive Lasix 20 mg tablet RxNorm: 771303 1 Tablet(s) PO PRN fror swelling 09/27/2015 10/29/2015 Inactive potassium chloride ER 10 mEq capsule,extended release RxNorm: 474010 1 Capsule(s) PO PRN for swelling take with lasix 09/27/2015 10/29/2015 Inactive Bactrim DS 800 mg-160 mg tablet RxNorm: 846458 1 Tablet(s) PO BID 09/02/2015 09/11/2015 Inactive Bactrim DS 800 mg-160 mg tablet RxNorm: 308089 1 Tablet(s) PO BID 09/02/2015 09/01/2015 Inactive nystatin 100,000 unit/gram topical cream RxNorm: 416788 1 Gram(s) TOP TID 08/28/2015 09/26/2015 Inactive Diflucan 150 mg tablet RxNorm: 349945 1 Tablet(s) PO daily 09/201509/06/2015 Inactive betamethasone dipropionate 0.05 % topical ointment RxNorm: 044586 1 Application TOP TID to affected area 08/02/20152016 Inactive nystatin 100,000 unit/gram topical powder RxNorm: 189414 1 Gram(s) TOP QID 07/09/2015 08/01/2015 Inactive Ambien 10 mg tablet RxNorm: 717665 1 Tablet(s) PO QHS 201406/18/2015 Inactive Ambien 10 mg tablet RxNorm: 236393 TAKE ONE TABLET BY MOUTH EVERY NIGHT AT BEDTIME 06/19/2015 09/16/2015 Inactive Vitamin D2 50,000 unit capsule RxNorm: 789260 1 Capsule(s) PO QW 03/07/2015 03/06/2015 Inactive Vitamin D2 50,000 unit capsule RxNorm: 896412 1 Capsule(s) PO QW 03/07/2015 05/05/2015 Inactive terazosin 5 mg capsule RxNorm: 629184 1 Capsule(s) PO daily 06/201502/28/2016 Inactive [SAVINGS FOR NON-COVERED DRUGS -- BIN:[id number], PCN: [id number], Group: XXXXX, ID# XXXXXXX, Questions: . THIS IS NOT INSURANCE.] trazodone 50 mg tablet RxNorm: 365507 1 Tablet(s) PO daily 06/201502/28/2016 Inactive paroxetine 20 mg tablet RxNorm: 8547144 1 Tablet(s) PO daily 02/28/2016 Inactive Tylenol-Codeine #3 300 mg-30 mg tablet RxNorm: 304183 1 Tablet(s) PO QID as needed 03/06/2015 07/02/2015 Inactive amlodipine 10 mg tablet RxNorm: 200320 1 Tablet(s) PO daily 06/201511/17/2015 Inactive metoprolol succinate ER 25 mg tablet,extended release 24 hr RxNorm: 602828 1 Tablet(s) PO daily 03/06/2015 11/17/2015 Inactive omeprazole 20 mg capsule,delayed release RxNorm: 688573 1 Capsule(s) PO QHS 03/06/2015 02/28/2016 Inactive omeprazole 20 mg capsule,delayed release RxNorm: 744433 1 Capsule(s) PO QHS 01/31/2015 01/30/2015 Inactive omeprazole 20 mg capsule,delayed release RxNorm: 247450 1 Capsule(s) PO QHS 01/31/2015 01/30/2015 Inactive omeprazole 20 mg capsule,delayed release RxNorm: 835993 1 Capsule(s) PO QHS 01/31/2015 03/05/2015 Inactive Ambien 10 mg tablet RxNorm: 283991 1 Tablet(s) PO QHS 201404/21/2015 Inactive paroxetine 20 mg tablet RxNorm: 112876 1 Tablet(s) PO daily 08/201412/24/2014 Inactive Ambien 10 mg tablet RxNorm: 682261 1 Tablet(s) PO QHS 201412/24/2014 Inactive paroxetine 20 mg tablet RxNorm: 997583 1 Tablet(s) PO daily 08/201403/05/2015 Inactive terazosin 5 mg capsule RxNorm: 108011 1 Capsule(s) PO daily 07/201403/05/2015 Inactive [SAVINGS FOR NON-COVERED DRUGS -- BIN:[id number], PCN: [id number], Group: XXXXX, ID# XXXXXXX, Questions: . THIS IS NOT INSURANCE.] terazosin 5 mg capsule RxNorm: 168019 1 Capsule(s) PO daily 07/201411/22/2014 Inactive Lasix 20 mg tablet RxNorm: 886416 1 Tablet(s) PO daily No Start Date Active K-Dur 10 mEq tablet,extended release RxNorm: 038509 1 Tablet(s) PO daily No Start Date Active Eliquis 5 mg tablet RxNorm: 6381197 1 Tablet(s) PO BID No Start Date Active Vitamin D3 2,000 unit tablet RxNorm: 378084 1 Tablet(s) PO daily No Start Date Active isosorbide mononitrate ER 30 mg tablet,extended release 24 hr RxNorm: 654394 1 Tablet(s) PO daily No Start Date Active Zetia 10 mg tablet RxNorm: 175921 1 Tablet(s) PO daily No Start Date Active Lipitor 80 mg tablet RxNorm: 904143 1/2 Tablet(s) PO daily No Start Date Active metoprolol succinate ER 100 mg tablet,extended release 24 hr RxNorm: 219788 1 Tablet(s) PO daily No Start Date Active metoprolol succinate ER 25 mg tablet,extended release 24 hr RxNorm: 951159 1 Tablet(s) PO daily No Start Date 2014 Inactive betamethasone dipropionate 0.05 % topical ointment RxNorm: 173986 1 Application TOP TID to affected area No Start Date 01/2016 Inactive trazodone 50 mg tablet RxNorm: 543295 1 Tablet(s) PO daily No Start Date 03/05/2015 Inactive potassium chloride ER 10 mEq capsule,extended release RxNorm: 793436 1 Capsule(s) PO PRN for swelling take with lasix No Start Date 09/26/2015 Inactive amlodipine 10 mg tablet RxNorm: 531632 1 Tablet(s) PO daily No Start Date 03/05/2015 Inactive aspirin 81 mg tablet,delayed release RxNorm: 253630 1 Tablet(s) PO daily No Start Date 02/02/2017 Inactive Lasix 20 mg tablet RxNorm: 294361 1 Tablet(s) PO PRN fror swelling No Start Date 09/26/2015 Inactive Crestor 40 mg tablet RxNorm: 876781 1 Tablet(s) PO daily No Start Date [...] Observation Code Item Item Code Result Date Cbc With Differential Ord2 WBC 5.80 K/ul 09/30/2015 Cbc With Differential Ord2 RBC 4.52 M/ul 09/30/2015 Cbc With Differential Ord2 HGB 12.5 g/dl 09/30/2015 Cbc With Differential Ord2 HCT 39.7 % 09/30/2015 Cbc With Differential Ord2 Neut% 66.7 % 09/30/2015 Cbc With Differential Ord2 MCV 87.8 fl 09/30/2015 Cbc With Differential Ord2 Lymph% 19.0 % 09/30/2015 Cbc With Differential Ord2 MCH 27.7 pg 09/30/2015 Cbc With Differential Ord2 Ciales% 10.7 % 09/30/2015 Cbc With Differential Ord2 Eos% 3.4 % 09/30/2015 Cbc With Differential Ord2 MCHC 31.5 pg 09/30/2015 Cbc With Differential Ord2 PLT 212 K/ul 09/30/2015 Cbc With Differential Ord2 Baso% 0.2 % 09/30/2015 Cbc With Differential Ord2 Neut ABS# 3.87 K/ul 09/30/2015 Cbc With Differential Ord2 RDW 15.1 % 09/30/2015 Cbc With Differential Ord2 Lymph ABS# 1.10 K/ul 09/30/2015 Cbc With Differential Ord2 [place] ABS# 0.6 K/ul 09/30/2015 Cbc With Differential Ord2 Eos ABS# 0.2 K/ul 09/30/2015 Cbc With Differential Ord2 Baso ABS# 0.0 K/ul 09/30/2015 Cbc With Differential Ord2 New Analyzer Notice Please note new ref ranges starting 08-07-2015 due to implemntation of new five part differential hematolgy analyzer. 09/30/2015 Comp Metabolic Bvr819 NA 137 mEq/L 09/30/2015 Comp Metabolic Vms650 K 4.5 mEq/L 09/30/2015 Comp Metabolic Pnr516 CL 102 mEq/L 09/30/2015 Comp Metabolic Fgn073 CO2 26.0 mEq/L 09/30/2015 Comp Metabolic Mxv109 ANION GAP 14 09/30/2015 Comp Metabolic Vkd887 GLUCOSE 89 mg/dL 09/30/2015 Comp Metabolic Bhc479 Creat 0.8 mg/dL 09/30/2015 Comp Metabolic Ykb410 eGFR 79 ml/min/1.73m2 09/30/2015 Comp Metabolic Kyo919 BUN 14 mg/dL 09/30/2015 Comp Metabolic Ybx780 B/C Ratio 18.2 Ratio 09/30/2015 Comp Metabolic Cdi915 CALCIUM 8.9 mg/dL 09/30/2015 Comp Metabolic Esc426 ALK PHOS 65 U/L 09/30/2015 Comp Metabolic Cps406 AST(SGOT) 26 U/L 09/30/2015 Comp Metabolic Idn904 ALT(SGPT) 18 U/L 09/30/2015 Comp Metabolic Huz973 BILI T 0.6 mg/dL 09/30/2015 Comp Metabolic Kde959 ALBUMIN 3.8 g/dL 09/30/2015 Comp Metabolic Oap974 TPRO 6.6 g/dL 09/30/2015 Comp Metabolic Uxn469 GLOB 2.8 g/dL 09/30/2015 Comp Metabolic Djj981 A/G Ratio 1.4 Ratio 09/30/2015 Comp Metabolic Wjy536 Osmo 274 mOsmo 09/30/2015 Comp Metabolic Adg396 NA 137 mEq/L 03/06/2015 Comp Metabolic Qxz419 K 4.3 mEq/L 03/06/2015 Comp Metabolic Gwh120 CL 104 mEq/L 03/06/2015 Comp Metabolic Xhm090 CO2 28.0 mEq/L 03/06/2015 Comp Metabolic Bry301 ANION GAP 9 03/06/2015 Comp Metabolic Nsa697 GLUCOSE 93 mg/dL 03/06/2015 Comp Metabolic Ohg982 Creat 0.8 mg/dL 03/06/2015 Comp Metabolic Bew969 eGFR 81 ml/min/1.73m2 03/06/2015 Comp Metabolic Vow226 BUN 12 mg/dL 03/06/2015 Comp Metabolic Kuk802 B/C Ratio 16.0 Ratio 03/06/2015 Comp Metabolic Onu106 CALCIUM 8.9 mg/dL 03/06/2015 Comp Metabolic Iqo267 ALK PHOS 56 U/L 03/06/2015 Comp Metabolic Ese486 AST(SGOT) 22 U/L 03/06/2015 Comp Metabolic Aor620 ALT(SGPT) 15 U/L 03/06/2015 Comp Metabolic Ztx467 BILI T 0.4 mg/dL 03/06/2015 Comp Metabolic Xcw918 ALBUMIN 4.0 g/dL 03/06/2015 Comp Metabolic Wik918 TPRO 6.5 g/dL 03/06/2015 Comp Metabolic Qhf279 GLOB 2.5 g/dL 03/06/2015 Comp Metabolic Aks326 A/G Ratio 1.6 Ratio 03/06/2015 Comp Metabolic Qqk677 Osmo 273 mOsmo 03/06/2015 Cbc With Differential Ord2 WBC 5.6 K/uL [...] With Differential Ord2 RDW 15.7 % 03/06/2015 Vitamin D 25 Oh Wio3690 VITAMIN D, 25 HYDROXY 28.14 ng/mL Tsh Ord6 hTSH II 1.05 uIU/mL 03/06/2015 Review of Systems System Result Effective [...] G0008 04/08/2016 ADMIN PNEUMOCOCCAL VACCINE SNOMED CT: 54474792 CPT-4: G0009 04/08/2016 PNEUMOCOCCAL VACC [address]: 40533784 CPT-4: 67194 04/08/2016 FLU VACC PRSV FREE INC ANTIG CPT-4: 28233 04/08/2016 Vital Signs Date Vital 02/03/2017 Blood Pressure 1: 138/72 Code : 8480-6 BMI: 41.2 Code : 60660-3 Heart Rate 1 : 96 bpm Height: 5'7" SpO2: 97% Weight: 263 lbs 02/02/2017 Blood Pressure 1: 140/90 Code : 8480-6 BMI: 41.2 Code : 72019-8 Heart Rate 1 : 103 bpm Height: 5'7" SpO2: 94% Weight: 263 lbs 11/26/2016 Blood Pressure 1: 152/88 Code : 8480-6 BMI: 41.0 Code : 18343-5 Heart Rate 1 : 71 bpm Height: 5'7" SpO2: 94% Temperature: 37.7 (C) / 99.8 (F) Weight: 262 lbs 10/07/2016 Blood Pressure 1: 148/82 Code : 8480-6 BMI: 41.7 Code : 83895-2 Heart Rate 1 : 58 bpm Height: 5'7" SpO2: 96% Weight: 266 lbs 09/16/2016 Blood Pressure 1: 122/70 Code : 8480-6 BMI: 42.0 Code : 59382-7 Heart Rate 1 : 65 bpm Height: 5'7" SpO2: 96% Weight: 268 lbs 09/07/2016 Blood Pressure 1: 154/60 Code : 8480-6 BMI: 42.3 Code : 81203-2 Heart Rate 1 : 101 bpm Height: 5'7" SpO2: 97% Weight: 270 lbs 04/08/2016 Blood Pressure 1: 128/70 Code : 8480-6 BMI: 41.4 Code : 00838-9 Heart Rate 1 : 62 bpm Height: 5'7" SpO2: 95% Weight: 264 lbs 8 oz 03/05/2016 Blood Pressure 1: 139/72 Code : 8480-6 Blood Pressure 1: 144/78 Code: 8480-6 BMI: 41.9 Code: 66021-5 Heart Rate 1: 71 bpm Height: 5'7" SpO2: 93% Weight: 267 lbs 8 oz 12/04/2015 Blood Pressure 1: 132/70 Code : 8480-6 BMI: 41.3 Code : 90766-7 Heart Rate 1 : 56 bpm Height: 5'7" SpO2: 96% Weight: 264 lbs 11/18/2015 Blood Pressure 1: 138/72 Code : 8480-6 BMI: 41.0 Code : 41548-9 Heart Rate 1 : 85 bpm Height: 5'7" SpO2: 93% Weight: 262 lbs 09/30/2015 Blood Pressure 1: 128/76 Code : 8480-6 BMI: 41.2 Code : 98024-7 Heart Rate 1 : 70 bpm Height: 5'7" SpO2: 93% Weight: 263 lbs 09/09/2015 Blood Pressure 1: 138/80 Code : 8480-6 BMI: 40.3 Code : 52188-2 Heart Rate 1 : 84 bpm Height: 5'7" SpO2: 95% Weight: 257 lbs 08/28/2015 Blood Pressure 1: 122/72 Code : 8480-6 BMI: 39.6 Code : 56421-3 Heart Rate 1 : 75 bpm Height: 5'7" SpO2: 96% Weight: 253 lbs 07/09/2015 Blood Pressure 1: 140/78 Code : 8480-6 Blood Pressure 1: 135/78 Code: 8480-6 BMI: 39.5 Code: 59116-0 Heart Rate 1: 62 bpm Height: 5'7" SpO2: 95% Weight: 252 lbs 03/06/2015 Blood Pressure 1: 142/88 Code : 8480-6 BMI: 39.3 Code : 02641-1 Heart Rate 1 : 65 bpm Height: [...] data Encounters Encounter Performer Location Codes Date ([id number]) 59722 EST. PATIENT, LEVEL IV Diagnosis: Paroxysmal atrial fibrillation[ICD10: I48.0] Diagnosis: Essential (primary) hypertension[ICD10: I10] Scarlett Spring MD, [facility] CPT-4: 76918 02/02/2017 07167 EST. PATIENT, LEVEL III Diagnosis: Acute laryngopharyngitis[ICD10: J06.0] Diagnosis: Cough[ICD10: R05] Diagnosis: Pleurodynia[ICD10: R07.81] Diagnosis: Other dorsalgia[ICD10: M54.89] Kassandra Spring MD, [facility] CPT-4 : 10271 11/26/2016 [id number]) 40977 EST. PATIENT, LEVEL IV Diagnosis: Essential (primary) hypertension[ICD10: I10] Diagnosis: Pain in left knee[ICD10: M25.562] Diagnosis: Low back pain[ICD10: M54.5] Diagnosis: Major depressive disorder, recurrent, moderate[ICD10: F33.1] Scarlett Spring MD, [facility] CPT-4: 38104 10/07/2016 [id number]) 60560 EST. PATIENT, LEVEL IV Diagnosis: Essential (primary) hypertension[ICD10: I10] Diagnosis: Rash and other nonspecific skin eruption[ICD10: R21] Diagnosis: Major depressive disorder, recurrent, mild[ICD10: F33.0] Scarlett Spring MD, [facility] CPT-4: 68681 09/16/2016 66853 EST. PATIENT, LEVEL IV Diagnosis: Pain in left lower leg[ICD10: M79.662] Diagnosis: Pain in left knee[ICD10: M25.562] Kassandra Spring MD, [facility] CPT -4: 58340 09/07/2016 [id number]) 79613 EST. PATIENT, LEVEL IV Diagnosis: Encounter for immunization[ICD10: Z23] Diagnosis: Essential (primary) hypertension[ICD10: I10] Diagnosis: Mixed hyperlipidemia[ICD10: E78.2] Scarlett Spring MD, [facility] CPT-4: 23690 04/08/2016 [id number]) 19960 EST. PATIENT, LEVEL III Diagnosis: Essential (primary) hypertension[ICD10: I10] Diagnosis: Shortness of breath[ICD10: R06.02] Scarlett Spring MD, [facility] CPT-4: 87983 03/05/2016 ([id number]) 11080 EST. PATIENT, LEVEL III Diagnosis: Chronic obstructive pulmonary disease, unspecified[ICD10: J44.9] Scarlett Spring MD [facility] CPT-4: 72021 12/04/2015 ([id number]) 82534 EST. PATIENT, LEVEL IV Diagnosis: Essential (primary) hypertension[ICD10: I10] Diagnosis: Allergic rhinitis due to pollen[ICD10: J30.1] Scarlett Spring MD, [facility] CPT-4: 33243 11/18/2015 ([id number]) 61770 EST. PATIENT, LEVEL IV Diagnosis: Localized edema[ICD10: R60.0] Diagnosis: Dysuria[ICD10: R30.0] Diagnosis: Essential (primary) hypertension[ICD10: I10] Diagnosis: Nausea[ICD10: R11.0] Alis Spring MD, [facility] CPT-4: 07351 09/30/2015 ([id number]) 16239 EST. PATIENT, LEVEL II Diagnosis: Methicillin susceptible Staphylococcus aureus infection as the cause of diseases classified elsewhere[ICD10: B95.61] Diagnosis: Methicillin susceptible Staphylococcus aureus infection, unspecified site[ICD10: A49.01] Alis Spring MD [facility] CPT-4: 53530 09/09/2015 ([id number]) 98082 EST. PATIENT, LEVEL III Diagnosis: Dermatophytosis, unspecified[ICD10: B35.9] Diagnosis: Rash and other nonspecific skin eruption[ICD10: R21] Scarlett Spring MD, [facility] CPT-4: 54265 08/28/2015 ([id number]) 31279 EST. PATIENT, LEVEL IV Diagnosis: Essential (primary) hypertension[ICD10: I10] Diagnosis: Gastro-esophageal reflux disease without esophagitis[ICD10: K21.9] Diagnosis: Other dorsalgia[ICD10: M54.89] Scarlett Spring MD, [facility] CPT- 4: 72457 07/09/2015 ([id number]) OFFICE VISIT, NEW - LEVEL 4 Diagnosis: ESSENTIAL HYPERTENSION[ICD9: 401.9] Diagnosis: Osteoporosis[ICD9: 733.00] Diagnosis: Back pain[ICD9: 724.5] Diagnosis: Insomnia[ICD9: 780.52] Diagnosis: ESOPHAGEAL REFLUX[ICD9: 530.81] [facility] CPT- 4: 76322 03/06/2015 Plan of Care Planned Activity Notes [...] to cardiology 02/03/2017 Appointment: Kassandra Argueta WPtel: [facility] [facility] - Annual Wellness Visit 02/03/2017 Patient [...] at home. 02/02/2017 Appointment: Scarlett Spring WPtel: [facility] (15 min) Moderate 02/02/2017 Patient Education: [...] not improve. 11/26/2016 Appointment: Kassandra Argueta WPtel: [id number] (30 min) Complex 11/26/2016 Patient Education: Patient [...] pain symptoms. 10/07/2016 Appointment: Scarlett Spring WPtel: [facility] [place] (15 min) Moderate 10/07/2016 Patient Education: Patient Medication Summary Completed 10/07/2016 Patient Education: Obesity Completed 10/07/2016 Patient Education: Hypertension Completed 10/07/2016 Care Plan: VASCULAR STUDY Pending 10/04/2016 Care Plan: X-RAY EXAM OF KNEE 3 LOINC : 79786-8 Pending 10/04/2016 Visit Plan: Hypertension - well [...] for paroxetine 09/16/2016 Appointment: Scarlett Spring WPtel: [phone] [facility] [place] (15 min) Moderate 09/16/2016 Patient Education: [...] not improve. 09/07/2016 Appointment: Kassandra Argueta WPtel: 1015 [facility] [place] (10 min) Simple 09/07/2016 Patient Education: [...] order 04/08/2016 Appointment: Scarlett Spring [facility]Ptel[facility] [place] (15 min) Moderate 04/08/2016 Patient Education: Patient [...] 10 days. 03/05/2016 Appointment: Scarlett Spring [facility]Ptel[phone] (15 min) Moderate 03/05/2016 Patient Education: Patient Medication Summary Completed 03/05/2016 Visit Plan: COPD - chronic problem for this patient. We have reviewed chronic treatment strategy, symptom control, and plans for acute exacerbations. No changes today to the current treatment plan as the patient is stable, monitor for acute changes. anoro samples given to the patient 12/04/2015 Appointment: Scarlett Spring [facility]Ptel[phone] [facility] (15 min) Moderate 12/04/2015 Patient Education: Patient [...] allergy spray. 11/18/2015 Appointment: Scarlett Spring WPtel: [phone] [facility] (15 min) Moderate 11/18/2015 Patient Education: Patient Medication Summary Completed 11/18/2015 Patient Education: Obesity Completed 11/18/2015 Patient Education: Hypertension Completed 11/18/2015 Appointment: Clementine Scarlett WPtel: [facility] (15 min) Moderate 11/07/2015 Visit Plan: Hypertension [...] culture report. 08/28/2015 Appointment: Scarlett Spring WPtel: [facility] (15 min) Moderate 08/28/2015 Patient Education: Patient Medication Summary Completed 08/28/2015 Care Plan: C WOUN RTS Cultured from groin Pending 08/28/2015 Visit [...] not improving. 07/09/2015 Appointment: Scarlett Spring [facility]Ptel[facility] [place] (15 min) Moderate 07/09/2015 Patient Education: Patient [...] not improving. 03/06/2015 Appointment: Scarlett Spring [facility]el[phone] [place] ([place] New Patient 03/06/2015 Patient Education: [...] RESOLVED . MSSA of groin and under ybvsieo-admfjoitf-vlwwsb bactrim and call if rash does not [...]
--- OUTSIDE RECORDS SUMMARY | 2017-10-27 15:03 | XMS REPORT | CCD ---
Author Author Scarlett Spring Organization Scarlett Spring MD, [facility] Address [address] [place] [address] Phone Care Team Providers Care Machinist Outside Name Role Phone PP Unavailable CCM Unavailable Summary Purpose Interface Exchange Insurance Providers Payer name Policy type / Coverage type Covered constitution party ID Effective Begin Date Effective End Date WPS Medicare Part B Medicare Part B [id number] Unknown Unknown [employer] Medicare Part B [id number] Unknown Unknown Family history Mother Diagnosis Age At Onset Hypertension Unknown Heart Attack Unknown Brother Diagnosis Age At Onset Heart disease Unknown Runs in the family Diagnosis Age At Onset Heart disease Unknown Daughter Diagnosis Age At Onset Heart Attack Unknown Hyperlipidemia Unknown Hypertension Unknown Social History Social History Element Codes Description Effective Dates Number of children Unknown 2 daughter lives in [place], son - does not have contact [address]: 7144560 Quit over 10 years ago 1990 - previously smoked 2ppd x 25 years. 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 Allergies, Adverse Reactions, Alerts Allergies, Adverse [...] Fill Instructions trazodone 50 mg tablet RxNorm: 269740 TAKE ONE TABLET BY MOUTH ONCE DAILY 08/18/2017 No Stop Date Active paroxetine 20 mg tablet RxNorm: 3586892 TAKE ONE TABLET BY MOUTH ONCE DAILY 07/27/2017 No Stop Date Active Ambien 10 mg tablet RxNorm: 659355 Tablet(s) TAKE ONE TABLET BY MOUTH AT BEDTIME 06/23/2017 08/15/2017 Inactive omeprazole 20 mg capsule,delayed release RxNorm: 819796 TAKE ONE CAPSULE BY MOUTH ONCE DAILY AT BEDTIME 04/23/20172017 Active trazodone 50 mg tablet RxNorm: 437894 TAKE ONE TABLET BY MOUTH ONCE DAILY 04/13/2017 08/10/2017 Inactive terazosin 5 mg capsule RxNorm: 087200 Capsule(s) TAKE ONE CAPSULE BY MOUTH DAILY 04/08/2017 03/03/2018 Active Ambien 10 mg tablet RxNorm: 772516 Tablet(s) TAKE ONE TABLET BY MOUTH AT BEDTIME 02/17/2017 2017 Inactive Tylenol-Codeine #3 300 mg-30 mg tablet RxNorm: 476080 1 Tablet(s) PO QID as needed 02/02/2017 03/03/2017 Inactive metoprolol succinate ER 50 mg tablet,extended release 24 hr RxNorm: 191824 TAKE ONE TABLET BY MOUTH ONCE DAILY 12/23/2016 02/02/2017 Inactive Zithromax Z-Ted 250 mg tablet RxNorm: 973149 1 Tablet(s) PO UD 11/26/2016 02/16/2017 Inactive trazodone 50 mg tablet RxNorm: 830854 TAKE ONE TABLET BY MOUTH ONCE DAILY 11/12/2016 03/11/2017 Inactive Ambien 10 mg tablet RxNorm: 127880 Tablet(s) TAKE ONE TABLET BY MOUTH AT BEDTIME 10/22/2016 02/15/2017 Inactive Protonix 40 mg tablet,delayed release RxNorm: 627684 1 Tablet(s) PO daily 09/16/2016 03/14/2017 Inactive sucralfate 1 gram tablet RxNorm: 890498 1 Tablet(s) PO TID 01/13/2017 Inactive paroxetine 20 mg tablet RxNorm: 2023427 1 Tablet(s) PO daily TAKE ONE TABLET BY MOUTH DAILY 09/16/2016 06/12/2017 Inactive meloxicam 7.5 mg tablet RxNorm: 186127 1 Tablet(s) PO daily 11/14/2016 Inactive Ambien 10 mg tablet RxNorm: 406601 Tablet(s) TAKE ONE TABLET BY MOUTH AT BEDTIME 08/24/2016 10/21/2016 Inactive trazodone 50 mg tablet RxNorm: 047187 Tablet(s) TAKE ONE TABLET BY MOUTH DAILY 07/29/2016 11/11/2016 Inactive Ambien 10 mg tablet RxNorm: 140899 TAKE ONE TABLET BY MOUTH AT BEDTIME 06/23/2016 07/21/2016 Inactive Ambien 10 mg tablet RxNorm: 905784 Tablet(s) TAKE ONE TABLET BY MOUTH EVERY NIGHT AT BEDTIME 06/22/2016 06/23/2016 Inactive Ambien 10 mg tablet RxNorm: 727173 Tablet(s) TAKE ONE TABLET BY MOUTH EVERY NIGHT AT BEDTIME 04/03/2016 05/31/2016 Inactive Lasix 40 mg tablet RxNorm: 401593 1 Tablet(s) PO daily as needed for swelling 04/03/2016 09/15/2016 Inactive potassium chloride ER 20 mEq tablet,extended release RxNorm: 685750 1 Tablet(s) PO daily for swelling take with lasix as needed 04/03/2016 09/15/2016 Inactive omeprazole 20 mg capsule,delayed release RxNorm: 721108 TAKE ONE CAPSULE BY MOUTH EVERY NIGHT AT BEDTIME 03/31/20162016 Inactive paroxetine 20 mg tablet RxNorm: 2289941 TAKE ONE TABLET BY MOUTH DAILY 03/31/2016 09/15/2016 Inactive trazodone 50 mg tablet RxNorm: 756150 TAKE ONE TABLET BY MOUTH DAILY 03/20/2016 07/28/2016 Inactive terazosin 5 mg capsule RxNorm: 135785 TAKE ONE CAPSULE BY MOUTH DAILY 03/06/2016 10/06/2016 Inactive Ambien 10 mg tablet RxNorm: 804709 Tablet(s) TAKE ONE TABLET BY MOUTH EVERY NIGHT AT BEDTIME 01/17/2016 04/02/2016 Inactive loratadine 10 mg tablet RxNorm: 738732 1 Tablet(s) PO daily 09/15/2016 Inactive mupirocin 2 % topical ointment RxNorm: 307823 1 Application TOP TID 11/18/2015 12/01/2015 Inactive metoprolol succinate ER 50 mg tablet,extended release 24 hr RxNorm: 063175 1 Tablet(s) PO daily 11/18/2015 11/11/2016 Inactive loratadine 10 mg tablet RxNorm: 397612 1 Tablet(s) PO daily 01/14/2016 Inactive Lasix 40 mg tablet RxNorm: 313658 1 Tablet(s) PO daily as needed for swelling 10/30/2015 11/28/2015 Inactive potassium chloride ER 20 mEq tablet,extended release RxNorm: 460008 1 Tablet(s) PO daily for swelling take with lasix as needed 10/30/2015 11/28/2015 Inactive Tylenol-Codeine #3 300 mg-30 mg tablet RxNorm: 213142 1 Tablet(s) PO QID as needed 10/25/2015 02/01/2017 Inactive Ambien 10 mg tablet RxNorm: 315708 Tablet(s) TAKE ONE TABLET BY MOUTH EVERY NIGHT AT BEDTIME 10/18/2015 01/13/2016 Inactive Diflucan 150 mg tablet RxNorm: 301724 1 Tablet(s) PO daily 02/201612/03/2015 Inactive Lasix 20 mg tablet RxNorm: 404782 1 Tablet(s) PO PRN fror swelling 09/27/2015 10/29/2015 Inactive potassium chloride ER 10 mEq capsule,extended release RxNorm: 043320 1 Capsule(s) PO PRN for swelling take with lasix 09/27/2015 10/29/2015 Inactive Bactrim DS 800 mg-160 mg tablet RxNorm: 754240 1 Tablet(s) PO BID 09/02/2015 09/11/2015 Inactive Bactrim DS 800 mg-160 mg tablet RxNorm: 881454 1 Tablet(s) PO BID 09/02/2015 09/01/2015 Inactive nystatin 100,000 unit/gram topical cream RxNorm: 618152 1 Gram(s) TOP TID 08/28/2015 09/26/2015 Inactive Diflucan 150 mg tablet RxNorm: 295154 1 Tablet(s) PO daily 09/201509/06/2015 Inactive betamethasone dipropionate 0.05 % topical ointment RxNorm: 534132 1 Application TOP TID to affected area 08/02/20152016 Inactive nystatin 100,000 unit/gram topical powder RxNorm: 600049 1 Gram(s) TOP QID 07/09/2015 08/01/2015 Inactive Ambien 10 mg tablet RxNorm: 946575 1 Tablet(s) PO QHS 201406/18/2015 Inactive Ambien 10 mg tablet RxNorm: 483215 TAKE ONE TABLET BY MOUTH EVERY NIGHT AT BEDTIME 06/19/2015 09/16/2015 Inactive Vitamin D2 50,000 unit capsule RxNorm: 914006 1 Capsule(s) PO QW 03/07/2015 03/06/2015 Inactive Vitamin D2 50,000 unit capsule RxNorm: 537642 1 Capsule(s) PO QW 03/07/2015 05/05/2015 Inactive terazosin 5 mg capsule RxNorm: 037657 1 Capsule(s) PO daily 06/201502/28/2016 Inactive [SAVINGS FOR NON-COVERED DRUGS -- BIN:[id number], PCN: [id number], Group: XXXXX, ID# [id number], Questions: . THIS IS NOT INSURANCE.] trazodone 50 mg tablet RxNorm: 639893 1 Tablet(s) PO daily 06/201502/28/2016 Inactive paroxetine 20 mg tablet RxNorm: 5705905 1 Tablet(s) PO daily 02/28/2016 Inactive Tylenol-Codeine #3 300 mg-30 mg tablet RxNorm: 202099 1 Tablet(s) PO QID as needed 03/06/2015 07/02/2015 Inactive amlodipine 10 mg tablet RxNorm: 746612 1 Tablet(s) PO daily 06/201511/17/2015 Inactive metoprolol succinate ER 25 mg tablet,extended release 24 hr RxNorm: 526793 1 Tablet(s) PO daily 03/06/2015 11/17/2015 Inactive omeprazole 20 mg capsule,delayed release RxNorm: 338512 1 Capsule(s) PO QHS 03/06/2015 02/28/2016 Inactive omeprazole 20 mg capsule,delayed release RxNorm: 562433 1 Capsule(s) PO QHS 01/31/2015 01/30/2015 Inactive omeprazole 20 mg capsule,delayed release RxNorm: 743697 1 Capsule(s) PO QHS 01/31/2015 01/30/2015 Inactive omeprazole 20 mg capsule,delayed release RxNorm: 168430 1 Capsule(s) PO QHS 01/31/2015 03/05/2015 Inactive Ambien 10 mg tablet RxNorm: 502291 1 Tablet(s) PO QHS 201404/21/2015 Inactive paroxetine 20 mg tablet RxNorm: 602256 1 Tablet(s) PO daily 08/201412/24/2014 Inactive Ambien 10 mg tablet RxNorm: 236163 1 Tablet(s) PO QHS 201412/24/2014 Inactive paroxetine 20 mg tablet RxNorm: 117009 1 Tablet(s) PO daily 08/201403/05/2015 Inactive terazosin 5 mg capsule RxNorm: 646295 1 Capsule(s) PO daily 07/201403/05/2015 Inactive [SAVINGS FOR NON-COVERED DRUGS -- BIN:[id number], PCN: [id number], Group: XXXXX, ID# XXXXXXX, Questions: . THIS IS NOT INSURANCE.] terazosin 5 mg capsule RxNorm: 398151 1 Capsule(s) PO daily 07/201411/22/2014 Inactive Lasix 20 mg tablet RxNorm: 141321 1 Tablet(s) PO daily No Start Date Active K-Dur 10 mEq tablet,extended release RxNorm: 283400 1 Tablet(s) PO daily No Start Date Active Eliquis 5 mg tablet RxNorm: 7491905 1 Tablet(s) PO BID No Start Date Active Vitamin D3 2,000 unit tablet RxNorm: 802111 1 Tablet(s) PO daily No Start Date Active isosorbide mononitrate ER 30 mg tablet,extended release 24 hr RxNorm: 118692 1 Tablet(s) PO daily No Start Date Active Zetia 10 mg tablet RxNorm: 936058 1 Tablet(s) PO daily No Start Date Active Lipitor 80 mg tablet RxNorm: 073544 1/2 Tablet(s) PO daily No Start Date Active metoprolol succinate ER 100 mg tablet,extended release 24 hr RxNorm: 999899 1 Tablet(s) PO daily No Start Date Active metoprolol succinate ER 25 mg tablet,extended release 24 hr RxNorm: 438051 1 Tablet(s) PO daily No Start Date 2014 Inactive betamethasone dipropionate 0.05 % topical ointment RxNorm: 216343 1 Application TOP TID to affected area No Start Date 01/2016 Inactive trazodone 50 mg tablet RxNorm: 072449 1 Tablet(s) PO daily No Start Date 03/05/2015 Inactive potassium chloride ER 10 mEq capsule,extended release RxNorm: 721238 1 Capsule(s) PO PRN for swelling take with lasix No Start Date 09/26/2015 Inactive amlodipine 10 mg tablet RxNorm: 500868 1 Tablet(s) PO daily No Start Date 03/05/2015 Inactive aspirin 81 mg tablet,delayed release RxNorm: 900776 1 Tablet(s) PO daily No Start Date 02/02/2017 Inactive Lasix 20 mg tablet RxNorm: 849032 1 Tablet(s) PO PRN fror swelling No Start Date 09/26/2015 Inactive Crestor 40 mg tablet RxNorm: 689324 1 Tablet(s) PO daily No Start Date [...] Item Item Code Result Date Comp Metabolic Cwy104 NA 137 mEq/L 09/30/2015 Comp Metabolic Kcq856 K 4.5 mEq/L 09/30/2015 Comp Metabolic Sfl018 CL 102 mEq/L 09/30/2015 Comp Metabolic Jdb823 CO2 26.0 mEq/L 09/30/2015 Comp Metabolic Ugv384 ANION GAP 14 09/30/2015 Comp Metabolic Aee788 GLUCOSE 89 mg/dL 09/30/2015 Comp Metabolic Qfm702 Creat 0.8 mg/dL 09/30/2015 Comp Metabolic Uwr330 eGFR 79 ml/min/1.73m2 09/30/2015 Comp Metabolic Llc490 BUN 14 mg/dL 09/30/2015 Comp Metabolic Zem614 B/C Ratio 18.2 Ratio 09/30/2015 Comp Metabolic Ohp628 CALCIUM 8.9 mg/dL 09/30/2015 Comp Metabolic Hfq455 ALK PHOS 65 U/L 09/30/2015 Comp Metabolic Oln295 AST(SGOT) 26 U/L 09/30/2015 Comp Metabolic Soh287 ALT(SGPT) 18 U/L 09/30/2015 Comp Metabolic Hpd699 BILI T 0.6 mg/dL 09/30/2015 Comp Metabolic Tyn144 ALBUMIN 3.8 g/dL 09/30/2015 Comp Metabolic Wbh086 TPRO 6.6 g/dL 09/30/2015 Comp Metabolic Txi920 GLOB 2.8 g/dL 09/30/2015 Comp Metabolic Lwr539 A/G Ratio 1.4 Ratio 09/30/2015 Comp Metabolic Hzc222 Osmo 274 mOsmo 09/30/2015 Cbc With Differential [...] 27.7 pg 09/30/2015 Cbc With Differential Ord2 [place]% 10.7 % 09/30/2015 Cbc With Differential Ord2 MCHC 31.5 pg 09/30/2015 Cbc With Differential Ord2 Eos% 3.4 % 09/30/2015 Cbc With Differential Ord2 PLT 212 K/ul 09/30/2015 Cbc With Differential Ord2 Baso% 0.2 % 09/30/2015 Cbc With Differential Ord2 Neut ABS# 3.87 K/ul 09/30/2015 Cbc With Differential Ord2 RDW 15.1 % 09/30/2015 Cbc With Differential Ord2 Lymph ABS# 1.10 K/ul 09/30/2015 Cbc With Differential Ord2 [place] ABS# 0.6 K/ul 09/30/2015 Cbc With Differential Ord2 Eos ABS# 0.2 K/ul 09/30/2015 Cbc With Differential Ord2 Baso ABS# 0.0 K/ul 09/30/2015 Cbc With Differential Ord2 New Analyzer Notice Please note new ref ranges starting 08-07-2015 due to implemntation of new five part differential hematolgy analyzer. 09/30/2015 Tsh Ord6 hTSH II 1.05 uIU/mL 03/06/2015 Comp Metabolic Mhe419 NA 137 mEq/L 03/06/2015 Comp Metabolic Pyd116 K 4.3 mEq/L 03/06/2015 Comp Metabolic Czb109 CL 104 mEq/L 03/06/2015 Comp Metabolic Uwv649 CO2 28.0 mEq/L 03/06/2015 Comp Metabolic Fug791 ANION GAP 9 03/06/2015 Comp Metabolic Lwo484 GLUCOSE 93 mg/dL 03/06/2015 Comp Metabolic Wpj575 Creat 0.8 mg/dL 03/06/2015 Comp Metabolic Zaw230 eGFR 81 ml/min/1.73m2 03/06/2015 Comp Metabolic Igi249 BUN 12 mg/dL 03/06/2015 Comp Metabolic Hcu885 B/C Ratio 16.0 Ratio 03/06/2015 Comp Metabolic Sjc138 CALCIUM 8.9 mg/dL 03/06/2015 Comp Metabolic Pyr817 ALK PHOS 56 U/L 03/06/2015 Comp Metabolic Ymd591 AST(SGOT) 22 U/L 03/06/2015 Comp Metabolic Ktg568 ALT(SGPT) 15 U/L 03/06/2015 Comp Metabolic Vjt973 BILI T 0.4 mg/dL 03/06/2015 Comp Metabolic Ori114 ALBUMIN 4.0 g/dL 03/06/2015 Comp Metabolic Gyg194 TPRO 6.5 g/dL 03/06/2015 Comp Metabolic Dah047 GLOB 2.5 g/dL 03/06/2015 Comp Metabolic Vvt025 A/G Ratio 1.6 Ratio 03/06/2015 Comp Metabolic Ydu045 Osmo 273 mOsmo 03/06/2015 Vitamin D 25 Oh Aet0407 VITAMIN D, 25 HYDROXY 28.14 ng/mL Cbc [...] G0008 04/08/2016 ADMIN PNEUMOCOCCAL VACCINE SNOMED CT: 85985354 CPT-4: G0009 04/08/2016 PNEUMOCOCCAL VACC [address]: 61364695 CPT-4: 89236 04/08/2016 FLU VACC PRSV FREE INC ANTIG CPT-4: 22462 04/08/2016 Vital Signs Date Vital 02/03/2017 Blood Pressure 1: 138/72 Code : 8480-6 BMI: 41.2 Code : 73206-9 Heart Rate 1 : 96 bpm Height: 5'7" SpO2: 97% Weight: 263 lbs 02/02/2017 Blood Pressure 1: 140/90 Code : 8480-6 BMI: 41.2 Code : 36932-5 Heart Rate 1 : 103 bpm Height: 5'7" SpO2: 94% Weight: 263 lbs 11/26/2016 Blood Pressure 1: 152/88 Code : 8480-6 BMI: 41.0 Code : 51926-7 Heart Rate 1 : 71 bpm Height: 5'7" SpO2: 94% Temperature: 37.7 (C) / 99.8 (F) Weight: 262 lbs 10/07/2016 Blood Pressure 1: 148/82 Code : 8480-6 BMI: 41.7 Code : 80974-2 Heart Rate 1 : 58 bpm Height: 5'7" SpO2: 96% Weight: 266 lbs 09/16/2016 Blood Pressure 1: 122/70 Code : 8480-6 BMI: 42.0 Code : 80947-9 Heart Rate 1 : 65 bpm Height: 5'7" SpO2: 96% Weight: 268 lbs 09/07/2016 Blood Pressure 1: 154/60 Code : 8480-6 BMI: 42.3 Code : 82101-5 Heart Rate 1 : 101 bpm Height: 5'7" SpO2: 97% Weight: 270 lbs 04/08/2016 Blood Pressure 1: 128/70 Code : 8480-6 BMI: 41.4 Code : 80034-9 Heart Rate 1 : 62 bpm Height: 5'7" SpO2: 95% Weight: 264 lbs 8 oz 03/05/2016 Blood Pressure 1: 144/78 Code : 8480-6 Blood Pressure 1: 139/72 Code: 8480-6 BMI: 41.9 Code: 12544-1 Heart Rate 1: 71 bpm Height: 5'7" SpO2: 93% Weight: 267 lbs 8 oz 12/04/2015 Blood Pressure 1: 132/70 Code : 8480-6 BMI: 41.3 Code : 13598-0 Heart Rate 1 : 56 bpm Height: 5'7" SpO2: 96% Weight: 264 lbs 11/18/2015 Blood Pressure 1: 138/72 Code : 8480-6 BMI: 41.0 Code : 33891-8 Heart Rate 1 : 85 bpm Height: 5'7" SpO2: 93% Weight: 262 lbs 09/30/2015 Blood Pressure 1: 128/76 Code : 8480-6 BMI: 41.2 Code : 21538-9 Heart Rate 1 : 70 bpm Height: 5'7" SpO2: 93% Weight: 263 lbs 09/09/2015 Blood Pressure 1: 138/80 Code : 8480-6 BMI: 40.3 Code : 88980-8 Heart Rate 1 : 84 bpm Height: 5'7" SpO2: 95% Weight: 257 lbs 08/28/2015 Blood Pressure 1: 122/72 Code : 8480-6 BMI: 39.6 Code : 96849-8 Heart Rate 1 : 75 bpm Height: 5'7" SpO2: 96% Weight: 253 lbs 07/09/2015 Blood Pressure 1: 135/78 Code : 8480-6 Blood Pressure 1: 140/78 Code: 8480-6 BMI: 39.5 Code: 97729-3 Heart Rate 1: 62 bpm Height: 5'7" SpO2: 95% Weight: 252 lbs 03/06/2015 Blood Pressure 1: 142/88 Code : 8480-6 BMI: 39.3 Code : 77224-9 Heart Rate 1 : 65 bpm Height: [...] Onset of Symptom 2 weeks ago 07/09/2015 of June rash Timing of Episodes in [...] data Encounters Encounter Performer Location Codes Date ([id number]) 76357 EST. PATIENT, LEVEL IV Diagnosis: Paroxysmal atrial fibrillation[ICD10: I48.0] Diagnosis: Essential (primary) hypertension[ICD10: I10] Scarlett Spring MD, [facility] CPT-4: 11883 02/02/2017 28822 EST. PATIENT, LEVEL III Diagnosis: Acute laryngopharyngitis[ICD10: J06.0] Diagnosis: Cough[ICD10: R05] Diagnosis: Pleurodynia[ICD10: R07.81] Diagnosis: Other dorsalgia[ICD10: M54.89] Kassandra Spring MD, [facility] CPT-4 : 89178 11/26/2016 ([id number]) 07182 EST. PATIENT, LEVEL IV Diagnosis: Essential (primary) hypertension[ICD10: I10] Diagnosis: Pain in left knee[ICD10: M25.562] Diagnosis: Low back pain[ICD10: M54.5] Diagnosis: Major depressive disorder, recurrent, moderate[ICD10: F33.1] Scarlett Spring MD, [facility] CPT-4: 29885 10/07/2016 ([id number]) 48968 EST. PATIENT, LEVEL IV Diagnosis: Essential (primary) hypertension[ICD10: I10] Diagnosis: Rash and other nonspecific skin eruption[ICD10: R21] Diagnosis: Major depressive disorder, recurrent, mild[ICD10: F33.0] Scarlett Spring MD, [facility] CPT-4: 39821 09/16/2016 28139 EST. PATIENT, LEVEL IV Diagnosis: Pain in left lower leg[ICD10: M79.662] Diagnosis: Pain in left knee[ICD10: M25.562] Kassandra Spring MD, [facility] CPT -4: 08164 09/07/2016 ([id number]) 56292 EST. PATIENT, LEVEL IV Diagnosis: Encounter for immunization[ICD10: Z23] Diagnosis: Essential (primary) hypertension[ICD10: I10] Diagnosis: Mixed hyperlipidemia[ICD10: E78.2] Scarlett Spring MD, [facility] CPT-4: 25905 04/08/2016 ([id number]) 65239 EST. PATIENT, LEVEL III Diagnosis: Essential (primary) hypertension[ICD10: I10] Diagnosis: Shortness of breath[ICD10: R06.02] Scarlett Spring MD [facility] CPT-4: 01005 03/05/2016 ([id number]) 32940 EST. PATIENT, LEVEL III Diagnosis: Chronic obstructive pulmonary disease, unspecified[ICD10: J44.9] Scarlett Spring MD [facility] CPT-4: 55930 12/04/2015 ([id number]) 94664 EST. PATIENT, LEVEL IV Diagnosis: Essential (primary) hypertension[ICD10: I10] Diagnosis: Allergic rhinitis due to pollen[ICD10: J30.1] Scarlett Spring MD [facility] CPT-4: 87593 11/18/2015 ([id number]) 28827 EST. PATIENT, LEVEL IV Diagnosis: Localized edema[ICD10: R60.0] Diagnosis: Dysuria[ICD10: R30.0] Diagnosis: Essential (primary) hypertension[ICD10: I10] Diagnosis: Nausea[ICD10: R11.0] Alis Spring MD [facility] CPT-4: 37741 09/30/2015 ([id number]) 05291 EST. PATIENT, LEVEL II Diagnosis: Methicillin susceptible Staphylococcus aureus infection as the cause of diseases classified elsewhere[ICD10: B95.61] Diagnosis: Methicillin susceptible Staphylococcus aureus infection, unspecified site[ICD10: A49.01] Alis Spring MD [facility] CPT-4: 05927 09/09/2015 ([id number]) 80717 EST. PATIENT, LEVEL III Diagnosis: Dermatophytosis, unspecified[ICD10: B35.9] Diagnosis: Rash and other nonspecific skin eruption[ICD10: R21] Scarlett Spring MD [facility] CPT-4: 39022 08/28/2015 ([id number]) 05219 EST. PATIENT, LEVEL IV Diagnosis: Essential (primary) hypertension[ICD10: I10] Diagnosis: Gastro-esophageal reflux disease without esophagitis[ICD10: K21.9] Diagnosis: Other dorsalgia[ICD10: M54.89] [facility] CPT- 4: 14293 07/09/2015 ([id number]) OFFICE VISIT, NEW - LEVEL 4 Diagnosis: ESSENTIAL HYPERTENSION[ICD9: 401.9] Diagnosis: Osteoporosis[ICD9: 733.00] Diagnosis: Back pain[ICD9: 724.5] Diagnosis: Insomnia[ICD9: 780.52] Diagnosis: ESOPHAGEAL REFLUX[ICD9: 530.81] [facility] CPT- 4: 86803 03/06/2015 Plan of Care Planned Activity Notes [...] to cardiology 02/03/2017 [facility]ment[facility] [phone] [facility] [facility] - Annual Wellness Visit 02/03/2017 Patient Education: [...] at home. 02/02/2017 App[facility]ment[facility] Scar[facility] Spring [facility] [phone] [facility] (15 min) Moderate 02/02/2017 Patient Education: Patient [...] improve. 11/26/2016 Appointment: [facility] [phone] [facility] (30 min) Complex 11/26/2016 Patient Education: [...] pain symptoms. 10/07/2016 Appointment: Scarlett Spring [facility]Ptel[facility] [phone] [facility] (15 min) Moderate 10/07/2016 Patient Education: Patient Medication Summary Completed 10/07/2016 Patient Education: Obesity Completed 10/07/2016 Patient Education: Hypertension Completed 10/07/2016 Care Plan: VASCULAR STUDY Pending 10/04/2016 Care Plan: X-RAY EXAM OF KNEE 3 [facility] : 70742-2 Pending 10/04/2016 Visit Plan: Hypertension - well [...] for paroxetine 09/16/2016 Appointment: Scarlett Spring WPtel[facility] [phone] [facility] [place] (15 min) Moderate 09/16/2016 Patient Education: [...] improve. 09/07/2016 Appointment: [facility] [phone] [facility] [place] (10 min) Simple 09/07/2016 Patient Education: [...] shot today mammogram order 04/08/2016 Appointment: Scarlett pSring WPtel[facility] [phone] [facility] [place] (15 min) Moderate 04/08/2016 Patient Education: [...] days. 03/05/2016 Appointment: Scarlett Spring WPtel[facility] [phone] [facility] (15 min) Moderate 03/05/2016 Patient Education: Patient Medication Summary Completed 03/05/2016 Visit Plan: COPD - chronic problem for this patient. We have reviewed chronic treatment strategy, symptom control, and plans for acute exacerbations. No changes today to the current treatment plan as the patient is stable, monitor for acute changes. anoro samples given to the patient 12/04/2015 Appointment: Scarlett Spring WPtel[facility] [phone] [facility] (15 min) Moderate 12/04/2015 Patient Education: Patient [...] allergy spray. 11/18/2015 Appointment: Scarlett Spring WPtel: [address] [place] [address] (15 min) Moderate 11/18/2015 Patient Education: Patient Medication Summary Completed 11/18/2015 Patient Education: Obesity Completed 11/18/2015 Patient Education: Hypertension Completed 11/18/2015 Appointment: Scarlett Spring WPtel: [address] [place] [address] (15 min) Moderate 11/07/2015 Visit Plan: Hypertension [...] culture report. 08/28/2015 Appointment: Scarlett Spring WPtel: [facility] [address] (15 min) Moderate 08/28/2015 Patient Education: [...] not improving. 07/09/2015 Appointment: Scarlett Spring WPtel: [facility] (15 min) Moderate 07/09/2015 Patient Education: [...] not improving. 03/06/2015 Appointment: Scarlett Spring WPtel: [facility] [place] ([place] New Patient 03/06/2015 Patient Education: [...] RESOLVED . MSSA of groin and under [id number] bactrim and call if rash does not [...]
--- OUTSIDE RECORDS SUMMARY | 2017-10-27 15:06 | XMS REPORT | CCD ---
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 Name Role Phone PP Unavailable CCM Unavailable Summary Purpose Interface Exchange Insurance Providers Payer name Policy type / Coverage type Covered democrat ID Effective Begin Date Effective End Date WPS Medicare Part B Medicare Part B [id number] Unknown Unknown [employer] Medicare Part B [id number] Unknown Unknown Family history Mother Diagnosis Age At Onset Hypertension Unknown Heart Attack Unknown Brother Diagnosis Age At Onset Heart disease Unknown Runs in the family Diagnosis Age At Onset Heart disease Unknown Daughter Diagnosis Age At Onset Heart Attack Unknown Hyperlipidemia Unknown Hypertension Unknown Social History Social History Element Codes Description Effective Dates Number of children Unknown 2 daughter lives in [place], son - does not have contact [address]: 3437879 Quit over 10 years ago 1990 - previously smoked 2ppd x 25 years. 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 Allergies, Adverse Reactions, Alerts Allergies, Adverse [...] Fill Instructions trazodone 50 mg tablet RxNorm: 636126 TAKE ONE TABLET BY MOUTH ONCE DAILY 08/18/2017 No Stop Date Active Ambien 10 mg tablet RxNorm: 596752 Tablet(s) TAKE ONE TABLET BY MOUTH AT BEDTIME 08/18/2017 10/16/2017 Active paroxetine 20 mg tablet RxNorm: 4655954 TAKE ONE TABLET BY MOUTH ONCE DAILY 07/27/2017 No Stop Date Active Ambien 10 mg tablet RxNorm: 692250 Tablet(s) TAKE ONE TABLET BY MOUTH AT BEDTIME 06/23/2017 08/20/2017 Inactive omeprazole 20 mg capsule,delayed release RxNorm: 903883 TAKE ONE CAPSULE BY MOUTH ONCE DAILY AT BEDTIME 04/23/20172017 Inactive trazodone 50 mg tablet RxNorm: 098824 TAKE ONE TABLET BY MOUTH ONCE DAILY 04/13/2017 08/10/2017 Inactive terazosin 5 mg capsule RxNorm: 707210 Capsule(s) TAKE ONE CAPSULE BY MOUTH DAILY 04/08/2017 03/03/2018 Active Ambien 10 mg tablet RxNorm: 409514 Tablet(s) TAKE ONE TABLET BY MOUTH AT BEDTIME 02/17/2017 2017 Inactive Tylenol-Codeine #3 300 mg-30 mg tablet RxNorm: 656697 1 Tablet(s) PO QID as needed 02/02/2017 03/03/2017 Inactive metoprolol succinate ER 50 mg tablet,extended release 24 hr RxNorm: 720217 TAKE ONE TABLET BY MOUTH ONCE DAILY 12/23/2016 02/02/2017 Inactive Zithromax Z-Ted 250 mg tablet RxNorm: 110543 1 Tablet(s) PO UD 11/26/2016 02/16/2017 Inactive trazodone 50 mg tablet RxNorm: 110641 TAKE ONE TABLET BY MOUTH ONCE DAILY 11/12/2016 03/11/2017 Inactive Ambien 10 mg tablet RxNorm: 330593 Tablet(s) TAKE ONE TABLET BY MOUTH AT BEDTIME 10/22/2016 02/15/2017 Inactive paroxetine 20 mg tablet RxNorm: 7203519 1 Tablet(s) PO daily TAKE ONE TABLET BY MOUTH DAILY 09/16/2016 06/12/2017 Inactive meloxicam 7.5 mg tablet RxNorm: 147360 1 Tablet(s) PO daily 11/14/2016 Inactive Protonix 40 mg tablet,delayed release RxNorm: 858579 1 Tablet(s) PO daily 09/16/2016 08/22/2017 Inactive sucralfate 1 gram tablet RxNorm: 794104 1 Tablet(s) PO TID 08/22/2017 Inactive Ambien 10 mg tablet RxNorm: 048020 Tablet(s) TAKE ONE TABLET BY MOUTH AT BEDTIME 08/24/2016 10/21/2016 Inactive trazodone 50 mg tablet RxNorm: 485382 Tablet(s) TAKE ONE TABLET BY MOUTH DAILY 07/29/2016 11/11/2016 Inactive Ambien 10 mg tablet RxNorm: 996898 TAKE ONE TABLET BY MOUTH AT BEDTIME 06/23/2016 07/21/2016 Inactive Ambien 10 mg tablet RxNorm: 672528 Tablet(s) TAKE ONE TABLET BY MOUTH EVERY NIGHT AT BEDTIME 06/22/2016 06/23/2016 Inactive Ambien 10 mg tablet RxNorm: 424774 Tablet(s) TAKE ONE TABLET BY MOUTH EVERY NIGHT AT BEDTIME 04/03/2016 05/31/2016 Inactive Lasix 40 mg tablet RxNorm: 953203 1 Tablet(s) PO daily as needed for swelling 04/03/2016 09/15/2016 Inactive potassium chloride ER 20 mEq tablet,extended release RxNorm: 193586 1 Tablet(s) PO daily for swelling take with lasix as needed 04/03/2016 09/15/2016 Inactive omeprazole 20 mg capsule,delayed release RxNorm: 384508 TAKE ONE CAPSULE BY MOUTH EVERY NIGHT AT BEDTIME 03/31/20162016 Inactive paroxetine 20 mg tablet RxNorm: 6273487 TAKE ONE TABLET BY MOUTH DAILY 03/31/2016 09/15/2016 Inactive trazodone 50 mg tablet RxNorm: 445547 TAKE ONE TABLET BY MOUTH DAILY 03/20/2016 07/28/2016 Inactive terazosin 5 mg capsule RxNorm: 045192 TAKE ONE CAPSULE BY MOUTH DAILY 03/06/2016 10/06/2016 Inactive Ambien 10 mg tablet RxNorm: 565083 Tablet(s) TAKE ONE TABLET BY MOUTH EVERY NIGHT AT BEDTIME 01/17/2016 04/02/2016 Inactive loratadine 10 mg tablet RxNorm: 097893 1 Tablet(s) PO daily 09/15/2016 Inactive mupirocin 2 % topical ointment RxNorm: 131778 1 Application TOP TID 11/18/2015 12/01/2015 Inactive metoprolol succinate ER 50 mg tablet,extended release 24 hr RxNorm: 154353 1 Tablet(s) PO daily 11/18/2015 11/11/2016 Inactive loratadine 10 mg tablet RxNorm: 793818 1 Tablet(s) PO daily 01/14/2016 Inactive Lasix 40 mg tablet RxNorm: 494820 1 Tablet(s) PO daily as needed for swelling 10/30/2015 11/28/2015 Inactive potassium chloride ER 20 mEq tablet,extended release RxNorm: 275529 1 Tablet(s) PO daily for swelling take with lasix as needed 10/30/2015 11/28/2015 Inactive Tylenol-Codeine #3 300 mg-30 mg tablet RxNorm: 474085 1 Tablet(s) PO QID as needed 10/25/2015 02/01/2017 Inactive Ambien 10 mg tablet RxNorm: 068719 Tablet(s) TAKE ONE TABLET BY MOUTH EVERY NIGHT AT BEDTIME 10/18/2015 01/13/2016 Inactive Diflucan 150 mg tablet RxNorm: 019724 1 Tablet(s) PO daily 02/201612/03/2015 Inactive Lasix 20 mg tablet RxNorm: 958275 1 Tablet(s) PO PRN fror swelling 09/27/2015 10/29/2015 Inactive potassium chloride ER 10 mEq capsule,extended release RxNorm: 489413 1 Capsule(s) PO PRN for swelling take with lasix 09/27/2015 10/29/2015 Inactive Bactrim DS 800 mg-160 mg tablet RxNorm: 580742 1 Tablet(s) PO BID 09/02/2015 09/11/2015 Inactive Bactrim DS 800 mg-160 mg tablet RxNorm: 445837 1 Tablet(s) PO BID 09/02/2015 09/01/2015 Inactive nystatin 100,000 unit/gram topical cream RxNorm: 522250 1 Gram(s) TOP TID 08/28/2015 09/26/2015 Inactive Diflucan 150 mg tablet RxNorm: 711666 1 Tablet(s) PO daily 09/201509/06/2015 Inactive betamethasone dipropionate 0.05 % topical ointment RxNorm: 387034 1 Application TOP TID to affected area 08/02/20152016 Inactive nystatin 100,000 unit/gram topical powder RxNorm: 895752 1 Gram(s) TOP QID 07/09/2015 08/01/2015 Inactive Ambien 10 mg tablet RxNorm: 194421 1 Tablet(s) PO QHS 201406/18/2015 Inactive Ambien 10 mg tablet RxNorm: 625246 TAKE ONE TABLET BY MOUTH EVERY NIGHT AT BEDTIME 06/19/2015 09/16/2015 Inactive Vitamin D2 50,000 unit capsule RxNorm: 806903 1 Capsule(s) PO QW 03/07/2015 03/06/2015 Inactive Vitamin D2 50,000 unit capsule RxNorm: 271603 1 Capsule(s) PO QW 03/07/2015 05/05/2015 Inactive terazosin 5 mg capsule RxNorm: 048353 1 Capsule(s) PO daily 06/201502/28/2016 Inactive [SAVINGS FOR NON-COVERED DRUGS -- BIN:[id number], PCN: [id number], Group: XXXXX, ID# XXXXXXX, Questions: . THIS IS NOT INSURANCE.] trazodone 50 mg tablet RxNorm: 929610 1 Tablet(s) PO daily 06/201502/28/2016 Inactive paroxetine 20 mg tablet RxNorm: 9266292 1 Tablet(s) PO daily 02/28/2016 Inactive Tylenol-Codeine #3 300 mg-30 mg tablet RxNorm: 720007 1 Tablet(s) PO QID as needed 03/06/2015 07/02/2015 Inactive amlodipine 10 mg tablet RxNorm: 202743 1 Tablet(s) PO daily 06/201511/17/2015 Inactive metoprolol succinate ER 25 mg tablet,extended release 24 hr RxNorm: 876033 1 Tablet(s) PO daily 03/06/2015 11/17/2015 Inactive omeprazole 20 mg capsule,delayed release RxNorm: 192467 1 Capsule(s) PO QHS 03/06/2015 02/28/2016 Inactive omeprazole 20 mg capsule,delayed release RxNorm: 298507 1 Capsule(s) PO QHS 01/31/2015 01/30/2015 Inactive omeprazole 20 mg capsule,delayed release RxNorm: 492918 1 Capsule(s) PO QHS 01/31/2015 01/30/2015 Inactive omeprazole 20 mg capsule,delayed release RxNorm: 510072 1 Capsule(s) PO QHS 01/31/2015 03/05/2015 Inactive Ambien 10 mg tablet RxNorm: 058803 1 Tablet(s) PO QHS 201404/21/2015 Inactive paroxetine 20 mg tablet RxNorm: 984103 1 Tablet(s) PO daily 08/201412/24/2014 Inactive Ambien 10 mg tablet RxNorm: 373766 1 Tablet(s) PO QHS 201412/24/2014 Inactive paroxetine 20 mg tablet RxNorm: 535155 1 Tablet(s) PO daily 08/201403/05/2015 Inactive terazosin 5 mg capsule RxNorm: 407161 1 Capsule(s) PO daily 07/201403/05/2015 Inactive [SAVINGS FOR NON-COVERED DRUGS -- BIN:048538, PCN: ASPROD1, Group: XXXXX, ID# XXXXXXX, Questions: . THIS IS NOT INSURANCE.] terazosin 5 mg capsule RxNorm: 200437 1 Capsule(s) PO daily 07/201411/22/2014 Inactive Lasix 20 mg tablet RxNorm: 561792 1 Tablet(s) PO daily No Start Date Active Entresto 49 mg-51 mg tablet RxNorm: 6595239 1 Tablet(s) PO BID No Start Date Active K-Dur 10 mEq tablet,extended release RxNorm: 550787 1 Tablet(s) PO daily No Start Date Active Eliquis 5 mg tablet RxNorm: 5389030 1 Tablet(s) PO BID No Start Date Active Vitamin D3 2,000 unit tablet RxNorm: 606430 1 Tablet(s) PO daily No Start Date Active Zetia 10 mg tablet RxNorm: 405454 1 Tablet(s) PO daily No Start Date Active Lipitor 80 mg tablet RxNorm: 535858 1/2 Tablet(s) PO daily No Start Date Active metoprolol succinate ER 100 mg tablet,extended release 24 hr RxNorm: 028727 1 Tablet(s) PO daily No Start Date Active metoprolol succinate ER 25 mg tablet,extended release 24 hr RxNorm: 322672 1 Tablet(s) PO daily No Start Date 2014 Inactive betamethasone dipropionate 0.05 % topical ointment RxNorm: 030368 1 Application TOP TID to affected area No Start Date 01/2016 Inactive trazodone 50 mg tablet RxNorm: 273615 1 Tablet(s) PO daily No Start Date 03/05/2015 Inactive potassium chloride ER 10 mEq capsule,extended release RxNorm: 556651 1 Capsule(s) PO PRN for swelling take with lasix No Start Date 09/26/2015 Inactive amlodipine 10 mg tablet RxNorm: 053624 1 Tablet(s) PO daily No Start Date 03/05/2015 Inactive isosorbide mononitrate ER 30 mg tablet,extended release 24 hr RxNorm: 816101 1 Tablet(s) PO daily No Start Date 2017 Inactive aspirin 81 mg tablet,delayed release RxNorm: 088984 1 Tablet(s) PO daily No Start Date 02/02/2017 Inactive Lasix 20 mg tablet RxNorm: 100540 1 Tablet(s) PO PRN fror swelling No Start Date 09/26/2015 Inactive Crestor 40 mg tablet RxNorm: 161447 1 Tablet(s) PO daily No Start Date [...] Item Item Code Result Date Comp Metabolic Xco742 NA 137 mEq/L 09/30/2015 Comp Metabolic Vwl983 K 4.5 mEq/L 09/30/2015 Comp Metabolic Jij890 CL 102 mEq/L 09/30/2015 Comp Metabolic Hwz510 CO2 26.0 mEq/L 09/30/2015 Comp Metabolic Kka571 ANION GAP 14 09/30/2015 Comp Metabolic Bxh779 GLUCOSE 89 mg/dL 09/30/2015 Comp Metabolic Lug238 Creat 0.8 mg/dL 09/30/2015 Comp Metabolic Iff441 eGFR 79 ml/min/1.73m2 09/30/2015 Comp Metabolic Jiz486 BUN 14 mg/dL 09/30/2015 Comp Metabolic Udr224 B/C Ratio 18.2 Ratio 09/30/2015 Comp Metabolic Eun873 CALCIUM 8.9 mg/dL 09/30/2015 Comp Metabolic Cun459 ALK PHOS 65 U/L 09/30/2015 Comp Metabolic Ehb941 AST(SGOT) 26 U/L 09/30/2015 Comp Metabolic Bhj841 ALT(SGPT) 18 U/L 09/30/2015 Comp Metabolic Yxl295 BILI T 0.6 mg/dL 09/30/2015 Comp Metabolic Vrs792 ALBUMIN 3.8 g/dL 09/30/2015 Comp Metabolic Aom371 TPRO 6.6 g/dL 09/30/2015 Comp Metabolic Tto987 GLOB 2.8 g/dL 09/30/2015 Comp Metabolic Yoa284 A/G Ratio 1.4 Ratio 09/30/2015 Comp Metabolic Lbu448 Osmo 274 mOsmo 09/30/2015 Cbc With Differential [...] 27.7 pg 09/30/2015 Cbc With Differential Ord2 Patrick% 10.7 % 09/30/2015 Cbc With Differential Ord2 [...] 1.10 K/ul 09/30/2015 Cbc With Differential Ord2 Patrick ABS# 0.6 K/ul 09/30/2015 Cbc With Differential Ord2 Eos ABS# 0.2 K/ul 09/30/2015 Cbc With Differential Ord2 Baso ABS# 0.0 K/ul 09/30/2015 Cbc With Differential Ord2 New Analyzer Notice Please note new ref ranges starting 08-07-2015 due to implemntation of new five part differential hematolgy analyzer. 09/30/2015 Tsh Ord6 hTSH II 1.05 uIU/mL 03/06/2015 Comp Metabolic Fro835 NA 137 mEq/L 03/06/2015 Comp Metabolic Mkq808 K 4.3 mEq/L 03/06/2015 Comp Metabolic Qdb168 CL 104 mEq/L 03/06/2015 Comp Metabolic Uvv852 CO2 28.0 mEq/L 03/06/2015 Comp Metabolic Xvk167 ANION GAP 9 03/06/2015 Comp Metabolic Zik434 GLUCOSE 93 mg/dL 03/06/2015 Comp Metabolic Qzc383 Creat 0.8 mg/dL 03/06/2015 Comp Metabolic Vte034 eGFR 81 ml/min/1.73m2 03/06/2015 Comp Metabolic Nom086 BUN 12 mg/dL 03/06/2015 Comp Metabolic Ifh631 B/C Ratio 16.0 Ratio 03/06/2015 Comp Metabolic Han732 CALCIUM 8.9 mg/dL 03/06/2015 Comp Metabolic Cxm913 ALK PHOS 56 U/L 03/06/2015 Comp Metabolic Tky196 AST(SGOT) 22 U/L 03/06/2015 Comp Metabolic Xla749 ALT(SGPT) 15 U/L 03/06/2015 Comp Metabolic Xxm158 BILI T 0.4 mg/dL 03/06/2015 Comp Metabolic Hsn702 ALBUMIN 4.0 g/dL 03/06/2015 Comp Metabolic Hes765 TPRO 6.5 g/dL 03/06/2015 Comp Metabolic Rwa853 GLOB 2.5 g/dL 03/06/2015 Comp Metabolic Tlr182 A/G Ratio 1.6 Ratio 03/06/2015 Comp Metabolic Cdr592 Osmo 273 mOsmo 03/06/2015 Vitamin D 25 Oh Pti2228 VITAMIN D, 25 HYDROXY 28.14 ng/mL Cbc [...] G0008 04/08/2016 ADMIN PNEUMOCOCCAL VACCINE SNOMED CT: 07925815 CPT-4: G0009 04/08/2016 PNEUMOCOCCAL VACC [address]: 41643738 CPT-4: 99506 04/08/2016 FLU VACC PRSV FREE INC ANTIG CPT-4: 66043 04/08/2016 Vital Signs Date Vital 08/23/2017 Blood Pressure 1: 150/82 Code : 8480-6 BMI: 42.0 Code : 97835-9 Heart Rate 1 : 66 bpm Height: 5'7" SpO2: 96% Weight: 268 lbs 02/03/2017 Blood Pressure 1: 138/72 Code : 8480-6 BMI: 41.2 Code : 98208-0 Heart Rate 1 : 96 bpm Height: 5'7" SpO2: 97% Weight: 263 lbs 02/02/2017 Blood Pressure 1: 140/90 Code : 8480-6 BMI: 41.2 Code : 62080-3 Heart Rate 1 : 103 bpm Height: 5'7" SpO2: 94% Weight: 263 lbs 11/26/2016 Blood Pressure 1: 152/88 Code : 8480-6 BMI: 41.0 Code : 78385-2 Heart Rate 1 : 71 bpm Height: 5'7" SpO2: 94% Temperature: 37.7 (C) / 99.8 (F) Weight: 262 lbs 10/07/2016 Blood Pressure 1: 148/82 Code : 8480-6 BMI: 41.7 Code : 38899-3 Heart Rate 1 : 58 bpm Height: 5'7" SpO2: 96% Weight: 266 lbs 09/16/2016 Blood Pressure 1: 122/70 Code : 8480-6 BMI: 42.0 Code : 03970-5 Heart Rate 1 : 65 bpm Height: 5'7" SpO2: 96% Weight: 268 lbs 09/07/2016 Blood Pressure 1: 154/60 Code : 8480-6 BMI: 42.3 Code : 72933-0 Heart Rate 1 : 101 bpm Height: 5'7" SpO2: 97% Weight: 270 lbs 04/08/2016 Blood Pressure 1: 128/70 Code : 8480-6 BMI: 41.4 Code : 03335-3 Heart Rate 1 : 62 bpm Height: 5'7" SpO2: 95% Weight: 264 lbs 8 oz 03/05/2016 Blood Pressure 1: 144/78 Code : 8480-6 Blood Pressure 1: 139/72 Code: 8480-6 BMI: 41.9 Code: 03498-8 Heart Rate 1: 71 bpm Height: 5'7" SpO2: 93% Weight: 267 lbs 8 oz 12/04/2015 Blood Pressure 1: 132/70 Code : 8480-6 BMI: 41.3 Code : 35065-9 Heart Rate 1 : 56 bpm Height: 5'7" SpO2: 96% Weight: 264 lbs 11/18/2015 Blood Pressure 1: 138/72 Code : 8480-6 BMI: 41.0 Code : 17604-8 Heart Rate 1 : 85 bpm Height: 5'7" SpO2: 93% Weight: 262 lbs 09/30/2015 Blood Pressure 1: 128/76 Code : 8480-6 BMI: 41.2 Code : 10162-3 Heart Rate 1 : 70 bpm Height: 5'7" SpO2: 93% Weight: 263 lbs 09/09/2015 Blood Pressure 1: 138/80 Code : 8480-6 BMI: 40.3 Code : 59113-6 Heart Rate 1 : 84 bpm Height: 5'7" SpO2: 95% Weight: 257 lbs 08/28/2015 Blood Pressure 1: 122/72 Code : 8480-6 BMI: 39.6 Code : 75499-2 Heart Rate 1 : 75 bpm Height: 5'7" SpO2: 96% Weight: 253 lbs 07/09/2015 Blood Pressure 1: 135/78 Code : 8480-6 Blood Pressure 1: 140/78 Code: 8480-6 BMI: 39.5 Code: 34755-1 Heart Rate 1: 62 bpm Height: 5'7" SpO2: 95% Weight: 252 lbs 03/06/2015 Blood Pressure 1: 142/88 Code : 8480-6 BMI: 39.3 Code : 00990-2 Heart Rate 1 : 65 bpm Height: [...] data Encounters Encounter Performer Location Codes Date ([id number]) 40125 EST. PATIENT, LEVEL IV Diagnosis: Essential (primary) hypertension[ICD10: I10] Diagnosis: Chronic atrial fibrillation[ICD10: I48.2] Scarlett Spring MD, [facility] CPT-4: 61694 08/23/2017 ([id number]) 28640 EST. PATIENT, LEVEL IV Diagnosis: Paroxysmal atrial fibrillation[ICD10: I48.0] Diagnosis: Essential (primary) hypertension[ICD10: I10] Scarlett Spring MD, [facility] CPT-4: 58363 02/02/2017 00210 EST. PATIENT, LEVEL III Diagnosis: Acute laryngopharyngitis[ICD10: J06.0] Diagnosis: Cough[ICD10: R05] Diagnosis: Pleurodynia[ICD10: R07.81] Diagnosis: Other dorsalgia[ICD10: M54.89] Kassandra Spring MD, [facility] CPT-4 : 52012 11/26/2016 ([id number]) 97934 EST. PATIENT, LEVEL IV Diagnosis: Essential (primary) hypertension[ICD10: I10] Diagnosis: Pain in left knee[ICD10: M25.562] Diagnosis: Low back pain[ICD10: M54.5] Diagnosis: Major depressive disorder, recurrent, moderate[ICD10: F33.1] Scarlett Spring MD, [facility] CPT-4: 55533 10/07/2016 ([id number]) 27148 EST. PATIENT, LEVEL IV Diagnosis: Essential (primary) hypertension[ICD10: I10] Diagnosis: Rash and other nonspecific skin eruption[ICD10: R21] Diagnosis: Major depressive disorder, recurrent, mild[ICD10: F33.0] Scarlett Spring MD, [facility] CPT-4: 46706 09/16/2016 94919 EST. PATIENT, LEVEL IV Diagnosis: Pain in left lower leg[ICD10: M79.662] Diagnosis: Pain in left knee[ICD10: M25.562] Kassandra Spring MD, [facility] CPT -4: 15417 09/07/2016 ([id number]) 95741 EST. PATIENT, LEVEL IV Diagnosis: Encounter for immunization[ICD10: Z23] Diagnosis: Essential (primary) hypertension[ICD10: I10] Diagnosis: Mixed hyperlipidemia[ICD10: E78.2] Scarlett Spring MD [facility] CPT-4: 43640 04/08/2016 ([id number]) 32305 EST. PATIENT, LEVEL III Diagnosis: Essential (primary) hypertension[ICD10: I10] Diagnosis: Shortness of breath[ICD10: R06.02] Scarlett Spring MD, [facility] CPT-4: 86985 03/05/2016 ([id number]) 94180 EST. PATIENT, LEVEL III Diagnosis: Chronic obstructive pulmonary disease, unspecified[ICD10: J44.9] Scarlett Spring MD [facility] CPT-4: 11746 12/04/2015 ([id number]) 09630 EST. PATIENT, LEVEL IV Diagnosis: Essential (primary) hypertension[ICD10: I10] Diagnosis: Allergic rhinitis due to pollen[ICD10: J30.1] Scarlett Spring MD, [facility] CPT-4: 06433 11/18/2015 ([id number]) 30554 EST. PATIENT, LEVEL IV Diagnosis: Localized edema[ICD10: R60.0] Diagnosis: Dysuria[ICD10: R30.0] Diagnosis: Essential (primary) hypertension[ICD10: I10] Diagnosis: Nausea[ICD10: R11.0] lAis Spring MD, [facility] CPT-4: 03561 09/30/2015 ([id number]) 55958 EST. PATIENT, LEVEL II Diagnosis: Methicillin susceptible Staphylococcus aureus infection as the cause of diseases classified elsewhere[ICD10: B95.61] Diagnosis: Methicillin susceptible Staphylococcus aureus infection, unspecified site[ICD10: A49.01] Alis Spring MD, [facility] CPT-4: 77043 09/09/2015 ([id number]) 45749 EST. PATIENT, LEVEL III Diagnosis: Dermatophytosis, unspecified[ICD10: B35.9] Diagnosis: Rash and other nonspecific skin eruption[ICD10: R21] Scarlett Spring MD, [facility] CPT-4: 30921 08/28/2015 ([id number]) 92236 EST. PATIENT, LEVEL IV Diagnosis: Essential (primary) hypertension[ICD10: I10] Diagnosis: Gastro-esophageal reflux disease without esophagitis[ICD10: K21.9] Diagnosis: Other dorsalgia[ICD10: M54.89] Scarlett Spring MD, [facility] CPT- 4: 29902 07/09/2015 ([id number]) OFFICE VISIT, NEW - LEVEL 4 Diagnosis: ESSENTIAL HYPERTENSION[ICD9: 401.9] Diagnosis: Osteoporosis[ICD9: 733.00] Diagnosis: Back pain[ICD9: 724.5] Diagnosis: Insomnia[ICD9: 780.52] Diagnosis: ESOPHAGEAL REFLUX[ICD9: 530.81] Scarlett Spring MD, [facility] CPT- 4: 80433 03/06/2015 Plan of Care Planned Activity Notes [...] their heart rate is becoming uncontrolled. 08/23/2017 Patient Education: Patient Medication Summary Completed [...] to cardiology 02/03/2017 [facility] [phone] [facility] [facility] - Annual Wellness Visit 02/03/2017 Patient Education: [...] home. 02/02/2017 [facility] [address] [facility] (15 min) Moderate 02/02/2017 Patient Education: Patient [...] not improve. 11/26/2016 Appointment: Kassandra Argueta [facility]Ptel: [facility] (30 min) Complex 11/26/2016 Patient Education: [...] symptoms. 10/07/2016 [facility] [phone] [facility] [place] (15 min) Moderate 10/07/2016 Patient Education: Patient Medication Summary Completed 10/07/2016 Patient Education: Obesity Completed 10/07/2016 Patient Education: Hypertension Completed 10/07/2016 Care Plan: VASCULAR STUDY Pending 10/04/2016 Care Plan: X-RAY EXAM OF KNEE [address] [facility] : 84341-1 Pending 10/04/2016 Visit Plan: Hypertension - well [...] for paroxetine 09/16/2016 [facility]ment[facility] [phone] [facility] [place] (15 min) Moderate 09/16/2016 Patient Education: [...] improve. 09/07/2016 Appointment: [facility] [phone] [facility] [place] (10 min) Simple 09/07/2016 Patient [...] order 04/08/2016 [facility]ment[facility] [phone] [facility] (15 min) Moderate 04/08/2016 Patient Education: Patient [...] days. 03/05/2016 Appointment: [facility] [phone] [facility] [place] (15 min) Moderate 03/05/2016 Patient Education: Patient Medication Summary Completed 03/05/2016 Visit Plan: COPD - chronic problem for this patient. We have reviewed chronic treatment strategy, symptom control, and plans for acute exacerbations. No changes today to the current treatment plan as the patient is stable, monitor for acute changes. anoro samples given to the patient 12/04/2015 Appointment: Scarlett Spring WPtel: [facility] (15 min) Moderate 12/04/2015 Patient Education: Patient [...] allergy spray. 11/18/2015 Appointment: Scarlett Spring WPtel: [facility] (15 min) Moderate 11/18/2015 Patient Education: Patient Medication Summary Completed 11/18/2015 Patient Education: Obesity Completed 11/18/2015 Patient Education: Hypertension Completed 11/18/2015 Appointment: Scarlett Spring WPtel: [facility] (15 min) Moderate 11/07/2015 Visit Plan: [...] culture report. 08/28/2015 Appointment: Scarlett Spring WPtel: [facility] (15 min) Moderate 08/28/2015 Patient Education: Patient [...] not improving. 07/09/2015 Appointment: Scarlett Spring WPtel: [facility] (15 min) Moderate 07/09/2015 Patient Education: Patient [...] not improving. 03/06/2015 Appointment: Scarlett Spring WPtel: [address] [place], [place] [address] [place] ([place]) New Patient 03/06/2015 Patient Education: [...] RESOLVED . MSSA of groin and under [id number] bactrim and call if rash does not [...]
--- OUTSIDE RECORDS SUMMARY | 2017-10-27 15:08 | XMS REPORT | Continuity of Care Document ---
Author Author [facility] Organization [facility] Address Unknown Phone Unavailable Allergies Active Description Code Type Severity Reaction Onset Reported/Identified Relationship to Patient Clinical Status Yes Iodinated Contrast Media - IV Dye [id number] Drug Allergy Mild NAUSEA 04/24 Yes Iodinated Contrast Media - Oral and [id number] Drug Allergy Mild NAUSEA Yes Iodinated Contrast- Oral and IV Dye [id number] Drug Allergy Mild NAUSEA Yes penicillin G [id number] Drug Allergy Unknown N/A 04/24/2007 Medications There is no data. Problems Date Dx Coded Attending Type Code Diagnosis Diagnosed By 07/27/2011 Ot 401.9 HYPERTENSION NOS 07/27/2011 Ot 427.31 ATRIAL FIBRILLATION 07/27/2011 Ot 780.60 FEVER, UNSPECIFIED 07/27/2011 Ot 786.2 COUGH 07/31/2011 Ot 272.4 HYPERLIPIDEMIA NEC/NOS 07/31/2011 Ot 277.7 DYSMETABOLIC SYNDROME X 07/31/2011 Ot 278.01 MORBID OBESITY 07/31/2011 Ot 311 DEPRESSIVE DISORDER NEC 07/31/2011 Ot 401.9 HYPERTENSION NOS 07/31/2011 Ot 414.00 CORON ATHEROSCLER NOS TYPE VESSEL, NATIV 07/31/2011 Ot 486 PNEUMONIA, ORGANISM NOS 07/31/2011 Ot 491.21 OBSTR CHRONIC BRONCHITIS, W (ACUTE) EXAC 07/31/2011 Ot 530.81 ESOPHAGEAL REFLUX 07/31/2011 Ot 780.52 INSOMNIA, UNSPECIFIED 07/31/2011 Ot V15.82 HISTORY OF TOBACCO USE 07/31/2011 Ot V45.81 AORTOCORONARY BYPASS 07/31/2011 Ot V85.41 BODY MASS INDEX 40.0-44.9, ADULT 12/10/2011 Ot 277.7 DYSMETABOLIC SYNDROME X 12/10/2011 Ot 278.00 OBESITY, NOS 12/10/2011 Ot 311 DEPRESSIVE DISORDER NEC 12/10/2011 Ot 401.9 HYPERTENSION NOS 12/10/2011 Ot 414.00 CORON ATHEROSCLER NOS TYPE VESSEL, NATIV 12/10/2011 Ot 441.2 THORACIC AORTIC ANEURYSM 12/10/2011 Ot 530.81 ESOPHAGEAL REFLUX 12/10/2011 Ot 814.00 FX CARPAL BONE NOS-CLOSE 12/10/2011 Ot 816.01 FX MID/PRX PHAL, HAND-CL 12/10/2011 Ot E849[address]/HIGHWAY 12/10/2011 Ot E885.9 FALL FROM SLIPPING, TRIPPING, OR STUMBLI 12/10/2011 Ot V45.81 AORTOCORONARY BYPASS 12/10/2011 Ot V85.42 BODY MASS INDEX 45.0-49.9, ADULT 12/13/2011 Ot 780.2 SYNCOPE AND COLLAPSE 12/13/2011 Ot 793.19 OTHER NONSPECIFIC ABNORMAL FINDING OF [place] 03/23/2012 Ot 719.43 JOINT PAIN- FOREARM 03/23/2012 Ot V15.51 PERSONAL HISTORY OF TRAUMATIC FRACTURE 03/23/2012 Ot V57.21 ENCOUNTER FOR OCCUPATIONAL THERAPY 07/20/2012 Ot 272.4 HYPERLIPIDEMIA NEC/NOS 07/20/2012 Ot 401.9 HYPERTENSION NOS 07/20/2012 Ot 785.1 PALPITATIONS 09/07/2012 Ot 272.4 HYPERLIPIDEMIA NEC/NOS 09/07/2012 Ot 401.9 HYPERTENSION NOS 09/07/2012 Ot 414.01 CORONARY ATHEROSCLEROSIS OF [place] CORON 09/07/2012 Ot 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[place] 09/07/2012 Ot 786.09 RESPIRATORY ABNORM NEC 09/07/2012 Ot 794.30 ABN CARDIOVASC STUDY NOS 09/07/2012 Ot V45.81 AORTOCORONARY BYPASS 09/07/2012 Ot V58.66 LONG-TERM ( CURRENT) USE OF ASPIRIN 09/07/2012 Ot V58.69 OTH MED,LT, CURRENT USE 12/27/2012 TORI SCHAFER, EDD Rojo Ot 724.5 BACKACHE NOS 12/27/2012 EDD VALLE MD Ot V57.1 PHYSICAL THERAPY NEC 04/02/2013 AKILA SCHAFER, BISI Eli Ot 724.00 SPINAL STENOSIS NOS 04/02/2013 BISI WILBURN MD Ot 724.2 LUMBAGO 04/06/2013 JOSE POTTER MD Ot 724.2 LUMBAGO 04/06/2013 JOSE POTTER MD Ot 724.3 SCIATICA 10/11/2013 TORI SCHAFER, EDD Rojo Ot 327.23 OBSTRUCTIVE SLEEP APNEA (ADULT) (PEDIATR 10/11/2013 TORI SCHAFER, EDD Rojo Ot 401.9 HYPERTENSION NOS 10/11/2013 TORI SCHAFER, EDD Rojo Ot 414.9 CHR ISCHEMIC HRT DIS NOS 11/01/2014 Ot 441.4 11/01/2014 Ot 733.90 11/01/2014 Ot 959.19 11/01/2014 Ot E000.8 11/01/2014 Ot E927.0 11/02/2014 Ot 441.4 11/23/2014 TORI SCHAFER, EDD Rojo Ot 733.13 11/23/2014 EDD VALLE MD Ot 733.90 12/14/2014 MADELYN SCHAFER, PAMELA Aragon Ot 724.2 12/14/2014 PAMELA JOSHI MD Ot 733.13 02/14/2015 ALEXANDRA SCHAFER, MOHSEN Aragon Ot 272.4 02/14/2015 ALEXANDRA SCHAFER, MOHSEN Aragon Ot 401.9 02/14/2015 ALEXANDRA SCHAFER, MOHSEN Aragon Ot 414.00 02/14/2015 ALEXANDRA SCHAFER, MOHSEN Aragon Ot 786.09 10/13/2015 SHEILA NARAYANAN APRN Ot I50.9 HEART FAILURE, UNSPECIFIED 10/13/2015 SHEILA NARAYANAN WARNING COORDINATION METEOROLOGIST Ot R60.0 LOCALIZED EDEMA 10/13/2015 SHEILA NARAYANAN APRN Ot Z95.1 PRESENCE OF AORTOCORONARY BYPASS GRAFT 10/15/2015 SHEILA NARAYANAN APRN Ot I50.9 10/15/2015 SHEILA NARAYANAN APRN Ot R60.0 10/15/2015 SHEILA NARAYANAN APRN Ot Z95.1 02/05/2016 MARU TAVERAS Ot I71.4 ABDOMINAL AORTIC ANEURYSM, WITHOUT RUPTU 02/05/2016 MARU TAVERAS Ot I10 ESSENTIAL (PRIMARY) HYPERTENSION 02/05/2016 MARU TAVERAS Ot I25.10 ATHSCL HEART DISEASE OF [place] CORONARY 02/05/2016 MARU TAVERAS Ot I71.4 ABDOMINAL AORTIC ANEURYSM, WITHOUT RUPTU 02/05/2016 MARU TAVERAS Ot R07.89 OTHER CHEST PAIN 02/10/2016 MEDINA-IVONE PA, MARU K Ot I10 ESSENTIAL (PRIMARY) HYPERTENSION 02/10/2016 MEDINABLAIR PA, MARU K Ot I25.10 ATHSCL HEART DISEASE OF [place] CORONARY 02/10/2016 MEDINA-IVONE PA, MARU K Ot I71.4 ABDOMINAL AORTIC ANEURYSM, WITHOUT RUPTU 02/10/2016 MEDINABLAIR PA, MARU K Ot R07.89 OTHER CHEST PAIN 02/10/2016 MEDINA-IVONE PA, MARU K Ot I71.4 ABDOMINAL AORTIC ANEURYSM, WITHOUT RUPTU 02/10/2016 MEDINA-IVONE PA, MARU K Ot I10 ESSENTIAL (PRIMARY) HYPERTENSION 02/10/2016 MEDINA-IVONE PA, MARU K Ot I25.10 ATHSCL HEART DISEASE OF [place] CORONARY 02/10/2016 MEDINA-IVONE PA, MARU K Ot I71.4 ABDOMINAL AORTIC ANEURYSM, WITHOUT RUPTU 02/10/2016 MEDINA-IVONE PA, MARU K Ot R07.89 OTHER CHEST PAIN 02/25/2016 MEDINA-IVONE PA, MARU K Ot I10 ESSENTIAL (PRIMARY) HYPERTENSION 02/25/2016 MEDINA-IVONE PA, MARU K Ot I25.10 ATHSCL HEART DISEASE OF [place] CORONARY 02/25/2016 MEDINABLAIR PA, MARU K Ot I71.4 ABDOMINAL AORTIC ANEURYSM, WITHOUT RUPTU 02/25/2016 MEDINABLAIR PA, MARU K Ot R07.89 OTHER CHEST PAIN 03/04/2016 MEDINA-IVONE PA, MARU K Ot I10 ESSENTIAL (PRIMARY) HYPERTENSION 03/04/2016 MEDINABLAIR PA, MARU K Ot I25.10 ATHSCL HEART DISEASE OF [place] CORONARY 03/04/2016 MEDINA-IVONE PA, MARU K Ot I71.4 ABDOMINAL AORTIC ANEURYSM, WITHOUT RUPTU 03/04/2016 MEDINA-IVONE PA, MARU K Ot R07.89 OTHER CHEST PAIN 03/05/2016 MEDINA-IVONE PA, MARU K Ot I10 ESSENTIAL (PRIMARY) HYPERTENSION 03/05/2016 MEDINA-IVONE PA, MARU K Ot I25.10 ATHSCL HEART DISEASE OF [place] CORONARY 03/05/2016 VIKTOR PA, MARU K Ot I71.4 ABDOMINAL AORTIC ANEURYSM, WITHOUT RUPTU 03/05/2016 VIKTOR PA, MARU Moore Ot R07.89 OTHER CHEST PAIN 03/06/2016 VIKTOR KESHA, MARU Moore Ot I10 ESSENTIAL (PRIMARY) HYPERTENSION 03/06/2016 MEDINAMARI PA, MARU Moore Ot I25.10 ATHSCL HEART DISEASE OF [place] CORONARY 03/06/2016 VIKTOR KESHA, MARU Moore Ot I71.4 ABDOMINAL AORTIC ANEURYSM, WITHOUT RUPTU 03/06/2016 VIKTOR PA, MARU Moore Ot R07.89 OTHER CHEST PAIN 03/17/2016 VIKTOR PA, MARU Moore Ot I10 ESSENTIAL (PRIMARY) HYPERTENSION 03/17/2016 VIKTOR KESHA, MARU Moore Ot I25.10 ATHSCL HEART DISEASE OF [place] CORONARY 03/17/2016 VIKTOR KESHA, MARU Moore Ot I71.4 ABDOMINAL AORTIC ANEURYSM, WITHOUT RUPTU 03/17/2016 VIKTOR KESHA, MARU Moore Ot R07.89 OTHER CHEST PAIN 03/26/2016 Ot 401.9 HYPERTENSION NOS 03/26/2016 Ot 427.31 ATRIAL FIBRILLATION 03/26/2016 Ot 780.60 FEVER, UNSPECIFIED 03/26/2016 Ot 786.2 COUGH 04/25/2016 Ot 401.9 HYPERTENSION NOS 04/25/2016 Ot 427.31 ATRIAL FIBRILLATION 04/25/2016 Ot 780.60 FEVER, UNSPECIFIED 04/25/2016 Ot 786.2 COUGH 06/25/2016 Ot 401.9 HYPERTENSION NOS 06/25/2016 Ot 427.31 ATRIAL FIBRILLATION 06/25/2016 Ot 780.60 FEVER, UNSPECIFIED 06/25/2016 Ot 786.2 COUGH 08/01/2016 DEMETRIS SCHAFER, RICK Alaniz Ot I10 ESSENTIAL (PRIMARY) HYPERTENSION 08/01/2016 DEMETRIS SCHAFER, RICK Alaniz Ot R07.89 OTHER CHEST PAIN 08/01/2016 DEMETRIS SCHAFER, RICK Alaniz Ot R07.9 CHEST PAIN, UNSPECIFIED 08/01/2016 DEMETRIS SCHAFER, RICK Alaniz Ot R11.0 NAUSEA 08/01/2016 DEMETRIS SCHAFER, RICK Alaniz Ot Z79.82 USP (CURRENT) USE OF ASPIRIN 08/01/2016 DEMETRIS SCHAFER, RICK Alaniz Ot Z79.899 OTHER USP (CURRENT) DRUG THERAPY 08/02/2016 Ot V76.12 OTH SCREEN MAMMO-MALIGN NEOPLASM OF [place] 08/02/2016 Ot 244.8 ACQUIRED HYPOTHYROID NEC 08/02/2016 Ot 250.00 DIAB CHRISSY WO COMPL, TYPE II OR UNSPEC TY 08/02/2016 Ot 272.4 HYPERLIPIDEMIA NEC/NOS 08/02/2016 Ot 401.9 HYPERTENSION NOS 08/02/2016 Ot 414.01 CORONARY ATHEROSCLEROSIS OF [place] CORON 08/02/2016 Ot 272.4 HYPERLIPIDEMIA NEC/NOS 08/02/2016 Ot 272.4 HYPERLIPIDEMIA NEC/NOS 08/02/2016 Ot 401.9 HYPERTENSION NOS 08/02/2016 Ot 414.00 CORON ATHEROSCLER NOS TYPE VESSEL, NATIV 08/02/2016 Ot 272.4 HYPERLIPIDEMIA NEC/NOS 08/02/2016 Ot 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 08/02/2016 Ot 397.0 TRICUSPID VALVE DISEASE 08/02/2016 Ot 401.9 HYPERTENSION NOS 08/02/2016 Ot 414.00 CORON ATHEROSCLER NOS TYPE VESSEL, NATIV 08/02/2016 Ot 416.8 CHR PULMON HEART DIS NEC 08/02/2016 Ot 429.3 CARDIOMEGALY 08/02/2016 Ot 784.2 SWELLING IN HEAD NECK 08/02/2016 Ot 784.42 DYSPHONIA 08/02/2016 Ot 401.9 HYPERTENSION NOS 08/02/2016 Ot 414.00 CORON ATHEROSCLER NOS TYPE VESSEL, NATIV 08/02/2016 Ot 785.1 PALPITATIONS 08/02/2016 Ot 786.09 RESPIRATORY ABNORM NEC 08/02/2016 Ot 272.4 HYPERLIPIDEMIA NEC/NOS 08/02/2016 Ot 401.9 HYPERTENSION NOS 08/02/2016 Ot 414.01 CORONARY ATHEROSCLEROSIS OF [place] CORON 08/02/2016 EDD VALLE MD Ot V76.12 OTH SCREEN MAMMO-MALIGN NEOPLASM OF [place] 08/02/2016 EDD VALLE MD Ot 786.05 SHORTNESS OF BREATH 08/02/2016 EDD VALLE MD Ot 496 CHR AIRWAY OBSTRUCT NEC 08/02/2016 EDD VALLE MD Ot 786.05 SHORTNESS OF BREATH 08/02/2016 EDD VALLE MD Ot 441.4 ABDOM AORTIC ANEURYSM 08/02/2016 MARU TAVERAS Ot 272.4 HYPERLIPIDEMIA NEC/NOS 08/02/2016 MARU TAVERAS Ot 327.23 OBSTRUCTIVE SLEEP APNEA (ADULT) (PEDIATR 08/02/2016 MARU TAVERAS Ot 397.0 TRICUSPID VALVE DISEASE 08/02/2016 MARU TAVERAS Ot 401.9 HYPERTENSION NOS 08/02/2016 MARU TVAERAS Ot 414.00 CORON ATHEROSCLER NOS TYPE VESSEL, NATIV 08/02/2016 MARU TAVERAS Ot 424.0 MITRAL VALVE DISORDER 08/02/2016 MARU TAVERAS Ot 745.5 SECUNDUM ATRIAL SEPT DEF 08/02/2016 Ot 441.4 ABDOM AORTIC ANEURYSM 08/02/2016 Ot 733.90 BONE CARTILAGE DIS NOS 08/02/2016 Ot 959.19 OTH INJURY OF OTHER SITES OF TRUNK 08/02/2016 Ot E000.8 OTHER EXTERNAL CAUSE STATUS 08/02/2016 Ot E927.0 OVEREXERTION FROM SUDDEN STRENUOUS MOVEM 08/02/2016 Ot 441.4 ABDOM AORTIC ANEURYSM 08/02/2016 MADELYN SCHAFER, PAMELA Aragon Ot 724.2 LUMBAGO 08/02/2016 MADELYN SCHAFER, PAMELA Aragon Ot 733.13 PATHOLOGIC FRACTURE, VERTEBRAE 08/02/2016 TORI SCHAFER, EDD Rojo Ot 733.13 PATHOLOGIC FRACTURE, VERTEBRAE 08/02/2016 TORI SCHAFER, EDD Rojo Ot 733.90 BONE CARTILAGE DIS NOS 08/02/2016 ALEXANDRA SCHAFER, MOHSEN Aragon Ot 272.4 HYPERLIPIDEMIA NEC/NOS 08/02/2016 MOHSEN MORRIS MD Ot 401.9 HYPERTENSION NOS 08/02/2016 MOHSEN MORRIS MD Ot 414.00 CORON ATHEROSCLER NOS TYPE VESSEL, NATIV 08/02/2016 MOHSEN MORRIS MD Ot 786.09 RESPIRATORY ABNORM NEC 08/02/2016 MARU TAVERAS Ot I10 ESSENTIAL (PRIMARY) HYPERTENSION 08/02/2016 MARU TAVERAS Ot I25.10 ATHSCL HEART DISEASE OF [place] CORONARY 08/02/2016 MARU TAVERAS Ot I71.4 ABDOMINAL AORTIC ANEURYSM, WITHOUT RUPTU 08/02/2016 MARU TAVERAS Ot R07.89 OTHER CHEST PAIN 08/02/2016 VIKTOR REBOLLEDO MARU K Ot I10 ESSENTIAL (PRIMARY) HYPERTENSION 08/02/2016 VIKTOR REBOLLEDO MARU Moore Ot I25.10 ATHSCL HEART DISEASE OF [place] CORONARY 08/02/2016 VIKTOR REBOLLEDO MARU Oscar Ot I71.4 ABDOMINAL AORTIC ANEURYSM, WITHOUT RUPTU 08/02/2016 VIKTOR REBOLLEDO MARU Moore Ot R07.89 OTHER CHEST PAIN 08/02/2016 VIKTOR REBOLLEDO MARU K Ot I10 ESSENTIAL (PRIMARY) HYPERTENSION 08/02/2016 VIKTOR REBOLLEDO MARU Oscar Ot I25.10 ATHSCL HEART DISEASE OF [place] CORONARY 08/02/2016 VIKTOR REBOLLEDO MARU K Ot I71.4 ABDOMINAL AORTIC ANEURYSM, WITHOUT RUPTU 08/02/2016 VIKTOR REBOLLEDO MARU K Ot R07.89 OTHER CHEST PAIN 08/03/2016 DEMETRIS SCHAFER, RICK Alaniz Ot I10 ESSENTIAL (PRIMARY) HYPERTENSION 08/03/2016 DEMETRIS SCHAFER, RICK Alaniz Ot R07.89 OTHER CHEST PAIN 08/03/2016 RICK WILLSON MD Ot R07.9 CHEST PAIN, UNSPECIFIED 08/03/2016 DEMETRIS SCHAFER, RICK Alaniz Ot R11.0 NAUSEA 08/03/2016 DEMETRIS SCHAFER, RICK Alaniz Ot Z79.82 USP (CURRENT) USE OF ASPIRIN 08/03/2016 RICK WILLSON MD Ot Z79.899 OTHER USP (CURRENT) DRUG THERAPY 08/25/2016 Ot V76.12 OTH SCREEN MAMMO-MALIGN NEOPLASM OF [place] 08/25/2016 Ot 244.8 ACQUIRED HYPOTHYROID NEC 08/25/2016 Ot 250.00 DIAB CHRISSY WO COMPL, TYPE II OR UNSPEC TY 08/25/2016 Ot 272.4 HYPERLIPIDEMIA NEC/NOS 08/25/2016 Ot 401.9 HYPERTENSION NOS 08/25/2016 Ot 414.01 CORONARY ATHEROSCLEROSIS OF [place] CORON 08/25/2016 Ot 272.4 HYPERLIPIDEMIA NEC/NOS 08/25/2016 Ot 272.4 HYPERLIPIDEMIA NEC/NOS 08/25/2016 Ot 401.9 HYPERTENSION NOS 08/25/2016 Ot 414.00 CORON ATHEROSCLER NOS TYPE VESSEL, NATIV 08/25/2016 Ot 272.4 HYPERLIPIDEMIA NEC/NOS 08/25/2016 Ot 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 08/25/2016 Ot 397.0 TRICUSPID VALVE DISEASE 08/25/2016 Ot 401.9 HYPERTENSION NOS 08/25/2016 Ot 414.00 CORON ATHEROSCLER NOS TYPE VESSEL, NATIV 08/25/2016 Ot 416.8 CHR PULMON HEART DIS NEC 08/25/2016 Ot 429.3 CARDIOMEGALY 08/25/2016 Ot 784.2 SWELLING IN HEAD NECK 08/25/2016 Ot 784.42 DYSPHONIA 08/25/2016 Ot 401.9 HYPERTENSION NOS 08/25/2016 Ot 414.00 CORON ATHEROSCLER NOS TYPE VESSEL, NATIV 08/25/2016 Ot 785.1 PALPITATIONS 08/25/2016 Ot 786.09 RESPIRATORY ABNORM NEC 08/25/2016 Ot 272.4 HYPERLIPIDEMIA NEC/NOS 08/25/2016 Ot 401.9 HYPERTENSION NOS 08/25/2016 Ot 414.01 CORONARY ATHEROSCLEROSIS OF [place] CORON 08/25/2016 TORI SCHAFER, EDD Rojo Ot V76.12 OTH SCREEN MAMMO-MALIGN NEOPLASM OF [place] 08/25/2016 EDD VALLE MD Ot 786.05 SHORTNESS OF BREATH 08/25/2016 EDD VALLE MD Ot 496 CHR AIRWAY OBSTRUCT NEC 08/25/2016 EDD VALLE MD Ot 786.05 SHORTNESS OF BREATH 08/25/2016 EDD VALLE MD Ot 441.4 ABDOM AORTIC ANEURYSM 08/25/2016 MARU TAVERAS Ot 272.4 HYPERLIPIDEMIA NEC/NOS 08/25/2016 MARU TAVERAS Ot 327.23 OBSTRUCTIVE SLEEP APNEA (ADULT) (PEDIATR 08/25/2016 MARU TAVERAS Ot 397.0 TRICUSPID VALVE DISEASE 08/25/2016 MARU TAVERAS Ot 401.9 HYPERTENSION NOS 08/25/2016 MARU TAVERAS Ot 414.00 CORON ATHEROSCLER NOS TYPE VESSEL, NATIV 08/25/2016 MARU TAVERAS Ot 424.0 MITRAL VALVE DISORDER 08/25/2016 MARU TAVERAS Ot 745.5 SECUNDUM ATRIAL SEPT DEF 08/25/2016 Ot 441.4 ABDOM AORTIC ANEURYSM 08/25/2016 Ot 733.90 BONE CARTILAGE DIS NOS 08/25/2016 Ot 959.19 OTH INJURY OF OTHER SITES OF TRUNK 08/25/2016 Ot E000.8 OTHER EXTERNAL CAUSE STATUS 08/25/2016 Ot E927.0 OVEREXERTION FROM SUDDEN STRENUOUS MOVEM 08/25/2016 Ot 441.4 ABDOM AORTIC ANEURYSM 08/25/2016 MADELYN SCHAFER, PAMELA Aragon Ot 724.2 LUMBAGO 08/25/2016 MADELYN SCHAFER, PAMELA Aragon Ot 733.13 PATHOLOGIC FRACTURE, VERTEBRAE 08/25/2016 EDD VALLE MD Ot 733.13 PATHOLOGIC FRACTURE, VERTEBRAE 08/25/2016 EDD VALLE MD Ot 733.90 BONE CARTILAGE DIS NOS 08/25/2016 MOHSEN MORRIS MD Ot 272.4 HYPERLIPIDEMIA NEC/NOS 08/25/2016 MOHSEN MORRIS MD Ot 401.9 HYPERTENSION NOS 08/25/2016 MOHSEN MORRIS MD Ot 414.00 CORON ATHEROSCLER NOS TYPE VESSEL, NATIV 08/25/2016 MOHSEN MORRIS MD Ot 786.09 RESPIRATORY ABNORM NEC 08/25/2016 MARU TAVERAS Ot I10 ESSENTIAL (PRIMARY) HYPERTENSION 08/25/2016 MARU TAVERAS Ot I25.10 ATHSCL HEART DISEASE OF [place] CORONARY 08/25/2016 MARU TAVERAS Ot I71.4 ABDOMINAL AORTIC ANEURYSM, WITHOUT RUPTU 08/25/2016 MARU TAVERAS Ot R07.89 OTHER CHEST PAIN 08/25/2016 MARU TAVERAS Ot I10 ESSENTIAL (PRIMARY) HYPERTENSION 08/25/2016 MARU TAVERAS Ot I25.10 ATHSCL HEART DISEASE OF [place] CORONARY 08/25/2016 MARU TAVERAS Ot I71.4 ABDOMINAL AORTIC ANEURYSM, WITHOUT RUPTU 08/25/2016 MARU TAVERAS Ot R07.89 OTHER CHEST PAIN 08/25/2016 MARU TAVERAS Ot I10 ESSENTIAL (PRIMARY) HYPERTENSION 08/25/2016 MARU TAVERAS Ot I25.10 ATHSCL HEART DISEASE OF [place] CORONARY 08/25/2016 MARU TAVERAS Ot I71.4 ABDOMINAL AORTIC ANEURYSM, WITHOUT RUPTU 08/25/2016 MARU TAVERAS Ot R07.89 OTHER CHEST PAIN 08/26/2016 MOHSEN MORRIS MD Ot E78.5 HYPERLIPIDEMIA, UNSPECIFIED 08/26/2016 MOHSEN MORRIS MD Ot I10 ESSENTIAL (PRIMARY) HYPERTENSION 08/26/2016 MOHSEN MORRIS MD Ot I25.10 ATHSCL HEART DISEASE OF [place] CORONARY 08/26/2016 MOHSEN MORRIS MD Ot I27.2 OTHER SECONDARY PULMONARY HYPERTENSION 08/26/2016 MOHSEN MORRIS MD Ot I71.4 ABDOMINAL AORTIC ANEURYSM, WITHOUT RUPTU 08/26/2016 MOHSEN MORRIS MD Ot K22.5 DIVERTICULUM OF ESOPHAGUS, ACQUIRED 08/26/2016 MOHSEN MORRIS MD Ot K29.70 GASTRITIS, UNSPECIFIED, WITHOUT BLEEDING 08/26/2016 MOHSEN MORRIS MD Ot Q21.1 ATRIAL SEPTAL DEFECT 08/26/2016 MOHSEN MORRIS MD Ot R07.89 OTHER CHEST PAIN 08/26/2016 MOHSEN MORRIS MD Ot Z79.899 OTHER USP (CURRENT) DRUG THERAPY 08/26/2016 MOHSEN MORRIS MD Ot Z95.1 PRESENCE OF AORTOCORONARY BYPASS GRAFT 09/02/2016 MOHSEN MORRIS MD Ot E78.5 HYPERLIPIDEMIA, UNSPECIFIED 09/02/2016 MOHSEN MORRIS MD Ot I10 ESSENTIAL (PRIMARY) HYPERTENSION 09/02/2016 MOHSEN MORRIS MD Ot I25.10 ATHSCL HEART DISEASE OF [place] CORONARY 09/02/2016 MOHSEN MORRIS MD Ot I27.2 OTHER SECONDARY PULMONARY HYPERTENSION 09/02/2016 MOHSEN MORRIS MD Ot I71.4 ABDOMINAL AORTIC ANEURYSM, WITHOUT RUPTU 09/02/2016 MOHSEN MORRIS MD Ot K22.5 DIVERTICULUM OF ESOPHAGUS, ACQUIRED 09/02/2016 MOHSEN MORRIS MD Ot K29.70 GASTRITIS, UNSPECIFIED, WITHOUT BLEEDING 09/02/2016 MOHSEN MORRIS MD Ot Q21.1 ATRIAL SEPTAL DEFECT 09/02/2016 MOHSEN MORRIS MD Ot R07.89 OTHER CHEST PAIN 09/02/2016 MOHSEN MORRIS MD Ot Z79.899 OTHER USP (CURRENT) DRUG THERAPY 09/02/2016 ALEXANDRA SCHAFER, MOHSEN Aragon Ot Z95.1 PRESENCE OF AORTOCORONARY BYPASS GRAFT 09/08/2016 AGUSTIN HOWELL WARNING COORDINATION METEOROLOGIST Ot M79.605 PAIN IN LEFT LEG 09/09/2016 AGUSTIN HOWELL WARNING COORDINATION METEOROLOGIST Ot M25.562 PAIN IN LEFT KNEE 09/09/2016 AGUSTIN HOWELL WARNING COORDINATION METEOROLOGIST Ot M79.605 PAIN IN LEFT LEG 09/13/2016 AGUSTIN HOWELL WARNING COORDINATION METEOROLOGIST Ot M25.562 PAIN IN LEFT KNEE 09/13/2016 AGUSTIN HOWELL WARNING COORDINATION METEOROLOGIST Ot M79.605 PAIN IN LEFT LEG 09/29/2016 MARU TAVERAS Ot E78.2 MIXED HYPERLIPIDEMIA 09/29/2016 MARU TAVERAS Ot G47.33 OBSTRUCTIVE SLEEP APNEA (ADULT) (PEDIATR 09/29/2016 MARU TAVERAS Ot I10 ESSENTIAL (PRIMARY) HYPERTENSION 09/29/2016 MARU TAVERAS Ot I25.10 ATHSCL HEART DISEASE OF [place] CORONARY 09/30/2016 AGUSTIN HOWELL WARNING COORDINATION METEOROLOGIST Ot M25.562 PAIN IN LEFT KNEE 09/30/2016 AGUSTIN HOWELL WARNING COORDINATION METEOROLOGIST Ot M79.605 PAIN IN LEFT LEG 10/22/2016 MARU TAVERAS Ot E78.2 MIXED HYPERLIPIDEMIA 10/22/2016 MARU TAVERAS Ot G47.33 OBSTRUCTIVE SLEEP APNEA (ADULT) (PEDIATR 10/22/2016 MARU TAVERAS Ot I10 ESSENTIAL (PRIMARY) HYPERTENSION 10/22/2016 MARU TAVERAS Ot I25.10 ATHSCL HEART DISEASE OF [place] CORONARY 10/24/2016 Ot 401.9 HYPERTENSION NOS 10/24/2016 Ot 427.31 ATRIAL FIBRILLATION 10/24/2016 Ot 780.60 FEVER, UNSPECIFIED 10/24/2016 Ot 786.2 COUGH 11/23/2016 Ot 401.9 HYPERTENSION NOS 11/23/2016 Ot 427.31 ATRIAL FIBRILLATION 11/23/2016 Ot 780.60 FEVER, UNSPECIFIED 11/23/2016 Ot 786.2 COUGH 12/23/2016 Ot 272.4 HYPERLIPIDEMIA NEC/NOS 12/23/2016 Ot 272.4 HYPERLIPIDEMIA NEC/NOS 12/23/2016 Ot 401.9 HYPERTENSION NOS 12/23/2016 Ot 414.00 CORON ATHEROSCLER NOS TYPE VESSEL, NATIV 12/23/2016 Ot 272.4 HYPERLIPIDEMIA NEC/NOS 12/23/2016 Ot 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 12/23/2016 Ot 397.0 TRICUSPID VALVE DISEASE 12/23/2016 Ot 401.9 HYPERTENSION NOS 12/23/2016 Ot 414.00 CORON ATHEROSCLER NOS TYPE VESSEL, NATIV 12/23/2016 Ot 416.8 CHR PULMON HEART DIS NEC 12/23/2016 Ot 429.3 CARDIOMEGALY 12/23/2016 Ot 784.2 SWELLING IN HEAD NECK 12/23/2016 Ot 784.42 DYSPHONIA 12/23/2016 Ot 401.9 HYPERTENSION NOS 12/23/2016 Ot 414.00 CORON ATHEROSCLER NOS TYPE VESSEL, NATIV 12/23/2016 Ot 785.1 PALPITATIONS 12/23/2016 Ot 786.09 RESPIRATORY ABNORM NEC 12/23/2016 Ot 272.4 HYPERLIPIDEMIA NEC/NOS 12/23/2016 Ot 401.9 HYPERTENSION NOS 12/23/2016 Ot 414.01 CORONARY ATHEROSCLEROSIS OF [place] CORON 12/23/2016 EDD AVLLE MD Ot V76.12 OTH SCREEN MAMMO-MALIGN NEOPLASM OF [place] 12/23/2016 EDD VALLE MD Ot 786.05 SHORTNESS OF BREATH 12/23/2016 EDD VALLE MD Ot 496 CHR AIRWAY OBSTRUCT NEC 12/23/2016 EDD VALLE MD Ot 786.05 SHORTNESS OF BREATH 12/23/2016 EDD VALLE MD Ot 441.4 ABDOM AORTIC ANEURYSM 12/23/2016 MARU TAVERAS Ot 272.4 HYPERLIPIDEMIA NEC/NOS 12/23/2016 MARU TAVERAS Ot 327.23 OBSTRUCTIVE SLEEP APNEA (ADULT) (PEDIATR 12/23/2016 MARU TAVERAS Ot 397.0 TRICUSPID VALVE DISEASE 12/23/2016 MARU TAVERAS Ot 401.9 HYPERTENSION NOS 12/23/2016 MARU TAVERAS Ot 414.00 CORON ATHEROSCLER NOS TYPE VESSEL, NATIV 12/23/2016 MARU TAVERAS Ot 424.0 MITRAL VALVE DISORDER 12/23/2016 MARU TAVERAS Ot 745.5 SECUNDUM ATRIAL SEPT DEF 12/23/2016 Ot 441.4 ABDOM AORTIC ANEURYSM 12/23/2016 Ot 733.90 BONE CARTILAGE DIS NOS 12/23/2016 Ot 959.19 OTH INJURY OF OTHER SITES OF TRUNK 12/23/2016 Ot E000.8 OTHER EXTERNAL CAUSE STATUS 12/23/2016 Ot E927.0 OVEREXERTION FROM SUDDEN STRENUOUS MOVEM 12/23/2016 Ot 441.4 ABDOM AORTIC ANEURYSM 12/23/2016 MADELYN SCHAFER, PAMELA Aragon Ot 724.2 LUMBAGO 12/23/2016 MADELYN SCHAFER, PAMELA Aragon Ot 733.13 PATHOLOGIC FRACTURE, VERTEBRAE 12/23/2016 TORI SCHAFER, EDD Rojo Ot 733.13 PATHOLOGIC FRACTURE, VERTEBRAE 12/23/2016 TORI SCHAFER, EDD Rojo Ot 733.90 BONE CARTILAGE DIS NOS 12/23/2016 ALEXANDRA SCHAFER, MOHSEN Aragon Ot 272.4 HYPERLIPIDEMIA NEC/NOS 12/23/2016 MOHSEN MORRIS MD Ot 401.9 HYPERTENSION NOS 12/23/2016 ALEXANDRA SCHAFER, MOHSEN Aragon Ot 414.00 CORON ATHEROSCLER NOS TYPE VESSEL, NATIV 12/23/2016 MOHSEN MORRIS MD Ot 786.09 RESPIRATORY ABNORM NEC 12/23/2016 MARU TAVERAS Ot I10 ESSENTIAL (PRIMARY) HYPERTENSION 12/23/2016 MARU TAVERAS Ot I25.10 ATHSCL HEART DISEASE OF [place] CORONARY 12/23/2016 MARU TAVERAS Ot I71.4 ABDOMINAL AORTIC ANEURYSM, WITHOUT RUPTU 12/23/2016 MARU TAVERAS Ot R07.89 OTHER CHEST PAIN 12/23/2016 MARU TAVERAS Ot I10 ESSENTIAL (PRIMARY) HYPERTENSION 12/23/2016 MARU TAVERAS Ot I25.10 ATHSCL HEART DISEASE OF [place] CORONARY 12/23/2016 MARU TAVERAS Ot I71.4 ABDOMINAL AORTIC ANEURYSM, WITHOUT RUPTU 12/23/2016 MARU TAVERAS Ot R07.89 OTHER CHEST PAIN 12/23/2016 MARU TAVERAS Ot I10 ESSENTIAL (PRIMARY) HYPERTENSION 12/23/2016 MARU TAVERAS Ot I25.10 ATHSCL HEART DISEASE OF [place] CORONARY 12/23/2016 MARU TAVERAS Ot I71.4 ABDOMINAL AORTIC ANEURYSM, WITHOUT RUPTU 12/23/2016 MARU TAVERAS Ot R07.89 OTHER CHEST PAIN 12/23/2016 AGUSTIN HOWELL WARNING COORDINATION METEOROLOGIST Ot M25.562 PAIN IN LEFT KNEE 12/23/2016 AGUSTIN HOWELL WARNING COORDINATION METEOROLOGIST Ot M79.605 PAIN IN LEFT LEG 12/23/2016 MARU TAVERAS Ot E78.2 MIXED HYPERLIPIDEMIA 12/23/2016 MARU TAVERAS Ot G47.33 OBSTRUCTIVE SLEEP APNEA (ADULT) (PEDIATR 12/23/2016 MARU TAVERAS Ot I10 ESSENTIAL (PRIMARY) HYPERTENSION 12/23/2016 MARU TAVERAS Ot I25.10 ATHSCL HEART DISEASE OF [place] CORONARY 02/16/2017 MARU TAVERAS Ot E78.2 MIXED HYPERLIPIDEMIA 02/16/2017 MARU TAVERAS Ot I10 ESSENTIAL (PRIMARY) HYPERTENSION 02/16/2017 MARU TAVERAS Ot I25.10 ATHSCL HEART DISEASE OF [place] CORONARY 02/16/2017 MARU TAVERAS Ot R00.2 PALPITATIONS 02/23/2017 STEFFI SCHAFER, BIBIANA Roach Ot I49.9 CARDIAC ARRHYTHMIA, UNSPECIFIED 02/23/2017 STEFFI SCHAFER, BIBIANA Roach Ot R53.83 OTHER FATIGUE 03/03/2017 MARU TAVERAS Ot E78.2 MIXED HYPERLIPIDEMIA 03/03/2017 MARU TAVERAS Ot I10 ESSENTIAL (PRIMARY) HYPERTENSION 03/03/2017 MARU TAVERAS Ot I25.10 ATHSCL HEART DISEASE OF [place] CORONARY 03/03/2017 MARU TAVERAS Ot R00.2 PALPITATIONS 03/04/2017 MARU TAVERAS Ot E78.2 MIXED HYPERLIPIDEMIA 03/04/2017 MARU TAVERAS Ot I10 ESSENTIAL (PRIMARY) HYPERTENSION 03/04/2017 MARU TAVERAS Ot I25.10 ATHSCL HEART DISEASE OF [place] CORONARY 03/04/2017 MARU TAVERAS Ot R00.2 PALPITATIONS 03/10/2017 MOHSEN MORRIS MD Ot E78.2 MIXED HYPERLIPIDEMIA 03/10/2017 MOHSEN MORRIS MD Ot I10 ESSENTIAL (PRIMARY) HYPERTENSION 03/10/2017 MOHSEN MORRIS MD Ot I25.10 ATHSCL HEART DISEASE OF [place] CORONARY 03/10/2017 MOHSEN MORRIS MD Ot I34.0 NONRHEUMATIC MITRAL (VALVE) INSUFFICIENC 03/10/2017 MOHSEN MORRIS MD Ot I48.0 PAROXYSMAL ATRIAL FIBRILLATION 03/10/2017 MOHSEN MORRIS MD Ot Z79.01 SHOVELER (CURRENT) USE OF ANTICOAGULANT 03/10/2017 MOHSEN MORRIS MD Ot Z79.899 OTHER SHOVELER (CURRENT) DRUG THERAPY 03/10/2017 MOHSEN MORRIS MD Ot Z95.1 PRESENCE OF AORTOCORONARY BYPASS GRAFT 03/23/2017 MOHSEN MORRIS MD Ot E78.2 MIXED HYPERLIPIDEMIA 03/23/2017 MOHSEN MORRIS MD Ot I10 ESSENTIAL (PRIMARY) HYPERTENSION 03/23/2017 OMHSEN MORRIS MD Ot I25.10 ATHSCL HEART DISEASE OF [place] CORONARY 03/23/2017 MOHSEN MORRIS MD Ot I34.0 NONRHEUMATIC MITRAL (VALVE) INSUFFICIENC 03/23/2017 MOHSEN MORRIS MD Ot I48.0 PAROXYSMAL ATRIAL FIBRILLATION 03/23/2017 MOHSEN MORRIS MD Ot Z79.01 SHOVELER (CURRENT) USE OF ANTICOAGULANT 03/23/2017 MOHSEN MORRIS MD Ot Z79.899 OTHER USP (CURRENT) DRUG THERAPY 03/23/2017 MOHSEN MORRIS MD Ot Z95.1 PRESENCE OF AORTOCORONARY BYPASS GRAFT 03/26/2017 Ot 401.9 HYPERTENSION NOS 03/26/2017 Ot 427.31 ATRIAL FIBRILLATION 03/26/2017 Ot 780.60 FEVER, UNSPECIFIED 03/26/2017 Ot 786.2 COUGH 04/20/2017 SHEILA NARAYANAN APRN Ot E78.00 PURE HYPERCHOLESTEROLEMIA, UNSPECIFIED 04/20/2017 SHEILA NARAYANAN APRN Ot F32.9 MAJOR DEPRESSIVE DISORDER, SINGLE EPISOD 04/20/2017 SHEILA NARAYANAN APRN Ot F41.9 ANXIETY DISORDER, UNSPECIFIED 04/20/2017 SHEILA NARAYANAN APRN Ot G47.30 SLEEP APNEA, UNSPECIFIED 04/20/2017 SHEILA NARAYANAN APRN Ot I10 ESSENTIAL (PRIMARY) HYPERTENSION 04/20/2017 SHEILA NARAYANAN APRN Ot I48.91 UNSPECIFIED ATRIAL FIBRILLATION 04/20/2017 SHEILA NARAYANAN APRN Ot K21.9 GASTRO-ESOPHAGEAL REFLUX DISEASE WITHOUT 04/20/2017 SHEILA NARAYANAN APRN Ot M19.90 UNSPECIFIED OSTEOARTHRITIS, UNSPECIFIED 04/20/2017 SHEILA NARAYANAN APRN Ot R06.02 SHORTNESS OF BREATH 04/20/2017 SHEILA NARAYANAN APRN Ot Z79.01 USP (CURRENT) USE OF ANTICOAGULANT 04/20/2017 SHEILA NARAYANAN APRN Ot Z87.891 PERSONAL HISTORY OF NICOTINE DEPENDENCE 04/20/2017 SHEILA NARAYANAN APRN Ot Z96.0 PRESENCE OF UROGENITAL IMPLANTS 04/28/2017 MOHSEN MORRIS MD Ot E66.01 MORBID (SEVERE) OBESITY DUE TO EXCESS CA 04/28/2017 MOHSEN MORRIS MD Ot E78.5 HYPERLIPIDEMIA, UNSPECIFIED 04/28/2017 MOHSEN MORRIS MD Ot I10 ESSENTIAL (PRIMARY) HYPERTENSION 04/28/2017 MOHSEN MORRIS MD Ot I25.10 ATHSCL HEART DISEASE OF [place] CORONARY 04/28/2017 MOHSEN MORRIS MD Ot I48.0 PAROXYSMAL ATRIAL FIBRILLATION 04/28/2017 MOHSEN MORRIS MD Ot I71.4 ABDOMINAL AORTIC ANEURYSM, WITHOUT RUPTU 04/28/2017 MOHSEN MORRIS MD Ot Z68.41 BODY MASS INDEX (BMI) 40.0-44.9, ADULT 04/28/2017 MOHSEN MORRIS MD Ot Z79.01 USP (CURRENT) USE OF ANTICOAGULANT 04/28/2017 MOHSEN MORRIS MD, Ot Z79.899 OTHER SHOVELER (CURRENT) DRUG THERAPY 04/28/2017 MOHSEN MORRIS MD, Ot Z87.891 PERSONAL HISTORY OF NICOTINE DEPENDENCE 04/28/2017 MOHSEN MORRIS MD Ot Z95.1 PRESENCE OF AORTOCORONARY BYPASS GRAFT 08/26/2017 ROSIE KIRKPATRICK DO Ot E78.00 PURE HYPERCHOLESTEROLEMIA, UNSPECIFIED 08/26/2017 ROSIE KIRKPATRICK DO Ot F32.9 MAJOR DEPRESSIVE DISORDER, SINGLE EPISOD 08/26/2017 ROSIE KIRKPATRICK DO Ot F41.9 ANXIETY DISORDER, UNSPECIFIED 08/26/2017 ROSIE KIRKPATRICK DO Ot I10 ESSENTIAL (PRIMARY) HYPERTENSION 08/26/2017 ROSIE KIRKPATRICK DO Ot I48.0 PAROXYSMAL ATRIAL FIBRILLATION 08/26/2017 ROSIE KIRKPATRICK DO Ot J10.1 FLU DUE TO OT IDENT INFLUENZA VIRUS W O 08/26/2017 ROSIE KIRKPATRICK DO Ot R06.02 SHORTNESS OF BREATH 08/26/2017 ROSIE KIRKPATRICK DO Ot Z87.891 PERSONAL HISTORY OF NICOTINE DEPENDENCE 08/26/2017 ROSIE KIRKPATRICK DO Ot Z88.0 ALLERGY STATUS TO PENICILLIN 08/26/2017 ROSIE KIRKPATRICK DO Ot Z91.041 RADIOGRAPHIC DYE ALLERGY STATUS 08/26/2017 Ot 272.4 HYPERLIPIDEMIA NEC/NOS 08/26/2017 Ot 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 08/26/2017 Ot 397.0 TRICUSPID VALVE DISEASE 08/26/2017 Ot 401.9 HYPERTENSION NOS 08/26/2017 Ot 414.00 CORON ATHEROSCLER NOS TYPE VESSEL, NATIV 08/26/2017 Ot 416.8 CHR PULMON HEART DIS NEC 08/26/2017 Ot 429.3 CARDIOMEGALY 08/26/2017 Ot 784.2 SWELLING IN HEAD NECK 08/26/2017 Ot 784.42 DYSPHONIA 08/26/2017 Ot 401.9 HYPERTENSION NOS 08/26/2017 Ot 414.00 CORON ATHEROSCLER NOS TYPE VESSEL, NATIV 08/26/2017 Ot 785.1 PALPITATIONS 08/26/2017 Ot 786.09 RESPIRATORY ABNORM NEC 08/26/2017 Ot 272.4 HYPERLIPIDEMIA NEC/NOS 08/26/2017 Ot 401.9 HYPERTENSION NOS 08/26/2017 Ot 414.01 CORONARY ATHEROSCLEROSIS OF [place] CORON 08/26/2017 EDD VALLE MD Ot V76.12 OTH SCREEN MAMMO-MALIGN NEOPLASM OF [place] 08/26/2017 EDD VALLE MD Ot 786.05 SHORTNESS OF BREATH 08/26/2017 EDD VALLE MD Ot 496 CHR AIRWAY OBSTRUCT NEC 08/26/2017 EDD VALLE MD Ot 786.05 SHORTNESS OF BREATH 08/26/2017 EDD VALLE MD Ot 441.4 ABDOM AORTIC ANEURYSM 08/26/2017 MARU TAVERAS Ot 272.4 HYPERLIPIDEMIA NEC/NOS 08/26/2017 MARU TAVERAS Ot 327.23 OBSTRUCTIVE SLEEP APNEA (ADULT) (PEDIATR 08/26/2017 MARU TAVERAS Ot 397.0 TRICUSPID VALVE DISEASE 08/26/2017 MARU TAVERAS Ot 401.9 HYPERTENSION NOS 08/26/2017 MARU TAVERAS Ot 414.00 CORON ATHEROSCLER NOS TYPE VESSEL, NATIV 08/26/2017 MARU TAVERAS Ot 424.0 MITRAL VALVE DISORDER 08/26/2017 MARU TAVERAS Ot 745.5 SECUNDUM ATRIAL SEPT DEF 08/26/2017 Ot 441.4 ABDOM AORTIC ANEURYSM 08/26/2017 Ot 733.90 BONE CARTILAGE DIS NOS 08/26/2017 Ot 959.19 OTH INJURY OF OTHER SITES OF TRUNK 08/26/2017 Ot E000.8 OTHER EXTERNAL CAUSE STATUS 08/26/2017 Ot E927.0 OVEREXERTION FROM SUDDEN STRENUOUS MOVEM 08/26/2017 Ot 441.4 ABDOM AORTIC ANEURYSM 08/26/2017 MADELYN SCHAFER, PAMELA Aragon Ot 724.2 LUMBAGO 08/26/2017 MADELYN SCHAFER, PAMELA Aragon Ot 733.13 PATHOLOGIC FRACTURE, VERTEBRAE 08/26/2017 EDD VALLE MD Ot 733.13 PATHOLOGIC FRACTURE, VERTEBRAE 08/26/2017 EDD VALLE MD Ot 733.90 BONE CARTILAGE DIS NOS 08/26/2017 MOHSEN MORRIS MD Ot 272.4 HYPERLIPIDEMIA NEC/NOS 08/26/2017 MOHSEN MORRIS MD Ot 401.9 HYPERTENSION NOS 08/26/2017 MOHSEN MORIRS MD Ot 414.00 CORON ATHEROSCLER NOS TYPE VESSEL, NATIV 08/26/2017 MOHSEN MORRIS MD Ot 786.09 RESPIRATORY ABNORM NEC 08/26/2017 MARU TAVERAS Ot I10 ESSENTIAL (PRIMARY) HYPERTENSION 08/26/2017 VIKTOR REBOLLEDO, MARU K Ot I25.10 ATHSCL HEART DISEASE OF [place] CORONARY 08/26/2017 VIKTOR REBOLLEDO, MARU K Ot I71.4 ABDOMINAL AORTIC ANEURYSM, WITHOUT RUPTU 08/26/2017 VIKTOR REBOLLEDO, MARU K Ot R07.89 OTHER CHEST PAIN 08/26/2017 VIKTOR REBOLLEDO, MARU K Ot I10 ESSENTIAL (PRIMARY) HYPERTENSION 08/26/2017 VIKTOR REBOLLEDO, MARU K Ot I25.10 ATHSCL HEART DISEASE OF [place] CORONARY 08/26/2017 VIKTOR REBOLLEDO, MARU K Ot I71.4 ABDOMINAL AORTIC ANEURYSM, WITHOUT RUPTU 08/26/2017 VIKTOR REBOLLEDO, MARU K Ot R07.89 OTHER CHEST PAIN 08/26/2017 VIKTOR REBOLLEDO, MARU K Ot I10 ESSENTIAL (PRIMARY) HYPERTENSION 08/26/2017 VIKTOR REBOLLEDO, MARU K Ot I25.10 ATHSCL HEART DISEASE OF [place] CORONARY 08/26/2017 VIKTOR REBOLLEDO, MARU K Ot I71.4 ABDOMINAL AORTIC ANEURYSM, WITHOUT RUPTU 08/26/2017 VIKTOR REBOLLEDO, MARU K Ot R07.89 OTHER CHEST PAIN 08/26/2017 AGUSTIN HOWELL WARNING COORDINATION METEOROLOGIST Ot M25.562 PAIN IN LEFT KNEE 08/26/2017 AGUSTIN HOWELL WARNING COORDINATION METEOROLOGIST Ot M79.605 PAIN IN LEFT LEG 08/26/2017 VIKTOR REBOLLEDO MARU K Ot E78.2 MIXED HYPERLIPIDEMIA 08/26/2017 VIKTOR REBOLLEDO, MARU K Ot G47.33 OBSTRUCTIVE SLEEP APNEA (ADULT) (PEDIATR 08/26/2017 VIKTOR REBOLLEDO, MARU K Ot I10 ESSENTIAL (PRIMARY) HYPERTENSION 08/26/2017 VIKTOR REBOLLEDO, MARU K Ot I25.10 ATHSCL HEART DISEASE OF [place] CORONARY 08/26/2017 STEFFI SCHAFER, BIBIANA Roach Ot I49.9 CARDIAC ARRHYTHMIA, UNSPECIFIED 08/26/2017 BIBIANA KAPADIA MD Ot R53.83 OTHER FATIGUE 08/26/2017 MARU TAVERAS K Ot E78.2 MIXED HYPERLIPIDEMIA 08/26/2017 VIKTOR REBOLLEDO, MARU K Ot I10 ESSENTIAL (PRIMARY) HYPERTENSION 08/26/2017 VIKTOR REBOLLEDO, MARU Moore Ot I25.10 ATHSCL HEART DISEASE OF [place] CORONARY 08/26/2017 MARU TAVERAS Ot R00.2 PALPITATIONS 08/26/2017 MARU TAVERAS Ot E78.2 MIXED HYPERLIPIDEMIA 08/26/2017 MARU TAVERAS Ot I10 ESSENTIAL (PRIMARY) HYPERTENSION 08/26/2017 VIKTOR REBOLLEDO, MARU Moore Ot I25.10 ATHSCL HEART DISEASE OF [place] CORONARY 08/26/2017 MARU TAVERAS Ot R00.2 PALPITATIONS 08/27/2017 ROSIE KIRKPATRICK DO Ot E78.00 PURE HYPERCHOLESTEROLEMIA, UNSPECIFIED 08/27/2017 ROSIE KIRKPATRICK DO Ot F32.9 MAJOR DEPRESSIVE DISORDER, SINGLE EPISOD 08/27/2017 ROSIE KIRKPATRICK DO Ot F41.9 ANXIETY DISORDER, UNSPECIFIED 08/27/2017 ROSIE KIRKPATRICK DO Ot I10 ESSENTIAL (PRIMARY) HYPERTENSION 08/27/2017 ROSIE KIRKPATRICK DO Ot I48.0 PAROXYSMAL ATRIAL FIBRILLATION 08/27/2017 ROSIE KIRKPATRICK DO Ot J10.1 FLU DUE TO OTH IDENT INFLUENZA VIRUS W O 08/27/2017 ROSIE KIRKPATRICK DO Ot R06.02 SHORTNESS OF BREATH 08/27/2017 ROSIE KIRKPATRICK DO Ot Z87.891 PERSONAL HISTORY OF NICOTINE DEPENDENCE 08/27/2017 ROSIE KIRKPATRICK DO Ot Z88.0 ALLERGY STATUS TO PENICILLIN 08/27/2017 ROSIE KIRKPATRICK DO Ot Z91.041 RADIOGRAPHIC DYE ALLERGY STATUS 09/02/2017 MOHSEN MORRIS MD Ot E78.2 MIXED HYPERLIPIDEMIA 09/02/2017 MOHSEN MORRIS MD Ot I10 ESSENTIAL (PRIMARY) HYPERTENSION 09/02/2017 MOHSEN MORRIS MD Ot I25.10 ATHSCL HEART DISEASE OF [place] CORONARY 09/02/2017 MOHSEN MORRIS MD Ot I48.0 PAROXYSMAL ATRIAL FIBRILLATION 09/02/2017 MOHSEN MORRIS MD Ot R07.89 OTHER CHEST PAIN 09/04/2017 ROSIE KIRKPATRICK DO Ot E78.00 PURE HYPERCHOLESTEROLEMIA, UNSPECIFIED 09/04/2017 ROSIE KIRKPATRICK DO Ot F32.9 MAJOR DEPRESSIVE DISORDER, SINGLE EPISOD 09/04/2017 ROSIE KIRKPATRICK DO Ot F41.9 ANXIETY DISORDER, UNSPECIFIED 09/04/2017 CASIMIRO ROSIE VALENTIN Ot I10 ESSENTIAL (PRIMARY) HYPERTENSION 09/04/2017 CASIMIRO ROSIE VALENTIN Ot I48.0 PAROXYSMAL ATRIAL FIBRILLATION 09/04/2017 CASIMIRO ROSIE VALENTIN Ot J10.1 FLU DUE TO OTH IDENT INFLUENZA VIRUS W O 09/04/2017 CASIMIRO VALENTIN ROSIE Moore Ot R06.02 SHORTNESS OF BREATH 09/04/2017 CASIMIRO VALENTIN ROSIE Moore Ot Z87.891 PERSONAL HISTORY OF NICOTINE DEPENDENCE 09/04/2017 CASIMIRO VALENTIN ROSIE Moore Ot Z88.0 ALLERGY STATUS TO PENICILLIN 09/04/2017 CASIMIRO ROSIE Moore Ot Z91.041 RADIOGRAPHIC DYE ALLERGY STATUS 09/22/2017 MOHSEN MORRIS MD Ot E78.2 MIXED HYPERLIPIDEMIA 09/22/2017 MOHSEN MORRIS MD Ot I10 ESSENTIAL (PRIMARY) HYPERTENSION 09/22/2017 MOHSEN MORRIS MD Ot I25.10 ATHSCL HEART DISEASE OF [place] CORONARY 09/22/2017 MOHSEN MORRIS MD Ot I48.0 PAROXYSMAL ATRIAL FIBRILLATION 09/22/2017 MOHSEN MORRIS MD Ot R07.89 OTHER CHEST PAIN Procedures There is no data. Results Test Result Range Complete blood count (CBC) with automated white blood cell (WBC) differential - 08/01/16 12:04 Blood leukocytes automated count (number/volume) 6.7 10*3/uL 4.3-11.0 Blood erythrocytes automated count (number/volume) 4.62 10*6/uL 4.35-5.85 Venous blood hemoglobin measurement (mass/volume) 12.4 g/dL 11.5-16.0 Blood hematocrit (volume fraction) 39 % 35-52 Automated erythrocyte mean corpuscular volume 84 [foz_us] 80-99 Automated erythrocyte mean corpuscular hemoglobin (mass per erythrocyte) 27 pg 25-34 Automated erythrocyte mean corpuscular hemoglobin concentration measurement ( mass/volume) 32 g/dL 32-36 Automated erythrocyte distribution width ratio 14.5 % 10.0-14.5 Automated blood platelet count (count/volume) 219 10*3/uL 130-400 Automated blood platelet mean volume measurement 11.0 [foz_us] 7.4-10.4 Automated blood neutrophils/100 leukocytes 72 % 42-75 Automated blood lymphocytes/100 leukocytes 15 % 12-44 Blood monocytes/100 leukocytes 9 % 0-12 Automated blood eosinophils/100 leukocytes 4 % 0-10 Automated blood basophils/100 leukocytes 0 % 0-10 Blood neutrophils automated count (number/volume) 4.8 10*3 1.8-7.8 Blood lymphocytes automated count (number/volume) 1.0 10*3 1.0-4.0 Blood monocytes automated count (number/volume) 0.6 10*3 0.0-1.0 Automated eosinophil count 0.2 10*3/uL 0.0-0.3 Automated blood basophil count (count/volume) 0.0 10*3/uL 0.0-0.1 PT panel in platelet poor plasma by coagulation assay - 08/01/16 12:04 Prothrombin time (PT) in platelet poor plasma by coagulation assay 11.9 s 12.2-14.7 INR in platelet poor plasma or blood by coagulation assay 0.9 0.8-1.4 Activated partial thromboplastin time (aPTT) in platelet poor plasma bycoagulation assay - 08/01/16 12:04 Activated partial thromboplastin time (aPTT) in platelet poor plasma bycoagulation assay 26 s 24-35 Comprehensive metabolic panel - 08/01/16 12:04 Serum or plasma sodium measurement (moles/volume) 139 mmol/L 135-145 Serum or plasma potassium measurement (moles/volume) 4.4 mmol/L 3.6-5.0 Serum or plasma chloride measurement (moles/volume) 106 mmol/L 98-107 Carbon dioxide 23 mmol/L 21-32 Serum or plasma anion gap determination (moles/volume) 10 mmol/L 5-14 Serum or plasma urea nitrogen measurement (mass/volume) 11 mg/dL 7-18 Serum or plasma creatinine measurement (mass/volume) 0.78 mg/dL 0.60-1.30 Serum or plasma urea nitrogen/creatinine mass ratio 14 NRG Serum or plasma creatinine measurement with calculation of estimated glomerular filtration rate > NRG Serum or plasma glucose measurement (mass/volume) 103 mg/dL 70-105 Serum or plasma calcium measurement (mass/volume) 8.8 mg/dL 8.5-10.1 Serum or plasma total bilirubin measurement (mass/volume) 0.4 mg/dL 0.1-1.0 Serum or plasma alkaline phosphatase measurement (enzymatic activity/volume) 75 U/L 40-136 Serum or plasma aspartate aminotransferase measurement (enzymatic activity/ volume) 20 U/L 5-34 Serum or plasma alanine aminotransferase measurement (enzymatic activity/volume ) 11 U/L 0-55 Serum or plasma protein measurement (mass/volume) 6.6 g/dL 6.4-8.2 Serum or plasma albumin measurement (mass/volume) 3.8 g/dL 3.2-4.5 Magnesium - 08/01/16 12:04 Magnesium 2.0 mg/dL 1.8-2.4 Serum or plasma troponin i.cardiac measurement (mass/volume) - 08/01/16 12:04 Serum or plasma troponin i.cardiac measurement (mass/volume) < ng/ mL <0.30 Myoglobin, serum - 08/01/16 12:04 Myoglobin, serum 33.9 ng/mL 10.0-92.0 Complete blood count (CBC) with automated white blood cell (WBC) differential - 08/25/16 08:50 Blood leukocytes automated count (number/volume) 5.3 10*3/uL 4.3-11.0 Blood erythrocytes automated count (number/volume) 4.68 10*6/uL 4.35-5.85 Venous blood hemoglobin measurement (mass/volume) 12.6 g/dL 11.5-16.0 Blood hematocrit (volume fraction) 39 % 35-52 Automated erythrocyte mean corpuscular volume 84 [foz_us] 80-99 Automated erythrocyte mean corpuscular hemoglobin (mass per erythrocyte) 27 pg 25-34 Automated erythrocyte mean corpuscular hemoglobin concentration measurement ( mass/volume) 32 g/dL 32-36 Automated erythrocyte distribution width ratio 14.9 % 10.0-14.5 Automated blood platelet count (count/volume) 234 10*3/uL 130-400 Automated blood platelet mean volume measurement 10.8 [foz_us] 7.4-10.4 Automated blood neutrophils/100 leukocytes 70 % 42-75 Automated blood lymphocytes/100 leukocytes 18 % 12-44 Blood monocytes/100 leukocytes 7 % 0-12 Automated blood eosinophils/100 leukocytes 4 % 0-10 Automated blood basophils/100 leukocytes 1 % 0-10 Blood neutrophils automated count (number/volume) 3.7 10*3 1.8-7.8 Blood lymphocytes automated count (number/volume) 0.9 10*3 1.0-4.0 Blood monocytes automated count (number/volume) 0.4 10*3 0.0-1.0 Automated eosinophil count 0.2 10*3/uL 0.0-0.3 Automated blood basophil count (count/volume) 0.0 10*3/uL 0.0-0.1 Comprehensive metabolic panel - 08/25/16 08:50 Serum or plasma sodium measurement (moles/volume) 144 mmol/L 135-145 Serum or plasma potassium measurement (moles/volume) 4.2 mmol/L 3.6-5.0 Serum or plasma chloride measurement (moles/volume) 109 mmol/L 98-107 Carbon dioxide 24 mmol/L 21-32 Serum or plasma anion gap determination (moles/volume) 11 mmol/L 5-14 Serum or plasma urea nitrogen measurement (mass/volume) 15 mg/dL 7-18 Serum or plasma creatinine measurement (mass/volume) 0.81 mg/dL 0.60-1.30 Serum or plasma urea nitrogen/creatinine mass ratio 19 NRG Serum or plasma creatinine measurement with calculation of estimated glomerular filtration rate > NRG Serum or plasma glucose measurement (mass/volume) 116 mg/dL 70-105 Serum or plasma calcium measurement (mass/volume) 8.5 mg/dL 8.5-10.1 Serum or plasma total bilirubin measurement (mass/volume) 0.4 mg/dL 0.1-1.0 Serum or plasma alkaline phosphatase measurement (enzymatic activity/volume) 78 U/L 40-136 Serum or plasma aspartate aminotransferase measurement (enzymatic activity/ volume) 18 U/L 5-34 Serum or plasma alanine aminotransferase measurement (enzymatic activity/volume ) 10 U/L 0-55 Serum or plasma protein measurement (mass/volume) 6.6 g/dL 6.4-8.2 Serum or plasma albumin measurement (mass/volume) 3.8 g/dL 3.2-4.5 Magnesium - 08/25/16 08:50 Magnesium 1.9 mg/dL 1.8-2.4 Lipase - 08/25/16 08:50 Lipase 32 U/L 8-78 Serum or plasma lithium measurement (moles/volume) - 08/25/16 08:50 BNP level 102.4 pg/mL <100.0 PT panel in platelet poor plasma by coagulation assay - 08/25/16 08:50 Prothrombin time (PT) in platelet poor plasma by coagulation assay 13.0 s 12.2-14.7 INR in platelet poor plasma or blood by coagulation assay 1.0 0.8-1.4 Activated partial thromboplastin time (aPTT) in platelet poor plasma bycoagulation assay - 08/25/16 08:50 Activated partial thromboplastin time (aPTT) in platelet poor plasma bycoagulation assay 24 s 24-35 Complete urinalysis with reflex to culture - 08/25/16 10:05 Urine color determination YELLOW NRG Urine clarity determination CLEAR NRG Urine pH measurement by test strip 7 5-9 Specific gravity of urine by test strip 1.010 1.016- 1.022 Urine protein assay by test strip, semi-quantitative NEGATIVE NEGATIVE Urine glucose detection by automated test strip NEGATIVE NEGATIVE Erythrocytes detection in urine sediment by light microscopy NEGATIVE NEGATIVE Urine ketones detection by automated test strip NEGATIVE NEGATIVE Urine nitrite detection by test strip NEGATIVE NEGATIVE Urine total bilirubin detection by test strip NEGATIVE NEGATIVE Urine urobilinogen measurement by automated test strip (mass/volume) NORMAL NORMAL Urine leukocyte esterase detection by dipstick NEGATIVE NEGATIVE Automated urine sediment erythrocyte count by microscopy (number/high power field) NONE NRG Automated urine sediment leukocyte count by microscopy (number/high power field ) NONE NRG Bacteria detection in urine sediment by light microscopy NEGATIVE NRG Squamous epithelial cells detection in urine sediment by light microscopy TNTC NRG Crystals detection in urine sediment by light microscopy NONE NRG Casts detection in urine sediment by light microscopy NONE NRG Mucus detection in urine sediment by light microscopy NEGATIVE NRG Complete urinalysis with reflex to culture NO NRG Automated blood complete blood count (hemogram) panel - 08/26/16 05:57 Blood leukocytes automated count (number/volume) 5.0 10*3/uL 4.3-11.0 Blood erythrocytes automated count (number/volume) 4.34 10*6/uL 4.35-5.85 Venous blood hemoglobin measurement (mass/volume) 11.7 g/dL 11.5-16.0 Blood hematocrit (volume fraction) 36 % 35-52 Automated erythrocyte mean corpuscular volume 83 [foz_us] 80-99 Automated erythrocyte mean corpuscular hemoglobin (mass per erythrocyte) 27 pg 25-34 Automated erythrocyte mean corpuscular hemoglobin concentration measurement ( mass/volume) 32 g/dL 32-36 Automated erythrocyte distribution width ratio 14.9 % 10.0-14.5 Automated blood platelet count (count/volume) 222 10*3/uL 130-400 Automated blood platelet mean volume measurement 11.0 [foz_us] 7.4-10.4 Whole blood basic metabolic panel - 08/26/16 05:57 Serum or plasma sodium measurement (moles/volume) 140 mmol/L 135-145 Serum or plasma potassium measurement (moles/volume) 4.0 mmol/L 3.6-5.0 Serum or plasma chloride measurement (moles/volume) 108 mmol/L 98-107 Carbon dioxide 22 mmol/L 21-32 Serum or plasma anion gap determination (moles/volume) 10 mmol/L 5-14 Serum or plasma urea nitrogen measurement (mass/volume) 11 mg/dL 7-18 Serum or plasma creatinine measurement (mass/volume) 0.80 mg/dL 0.60-1.30 Serum or plasma urea nitrogen/creatinine mass ratio 14 NRG Serum or plasma creatinine measurement with calculation of estimated glomerular filtration rate > NRG Serum or plasma glucose measurement (mass/volume) 134 mg/dL 70-105 Serum or plasma calcium measurement (mass/volume) 8.5 mg/dL 8.5-10.1 Complete urinalysis with reflex to culture - 03/10/17 08:04 Urine color determination YELLOW NRG Urine clarity determination CLEAR NRG Urine pH measurement by test strip 5 5-9 Specific gravity of urine by test strip 1.020 1.016- 1.022 Urine protein assay by test strip, semi-quantitative NEGATIVE NEGATIVE Urine glucose detection by automated test strip NEGATIVE NEGATIVE Erythrocytes detection in urine sediment by light microscopy NEGATIVE NEGATIVE Urine ketones detection by automated test strip NEGATIVE NEGATIVE Urine nitrite detection by test strip NEGATIVE NEGATIVE Urine total bilirubin detection by test strip NEGATIVE NEGATIVE Urine urobilinogen measurement by automated test strip (mass/volume) NORMAL NORMAL Urine leukocyte esterase detection by dipstick NEGATIVE NEGATIVE Automated urine sediment erythrocyte count by microscopy (number/high power field) NONE NRG Automated urine sediment leukocyte count by microscopy (number/high power field ) NONE NRG Bacteria detection in urine sediment by light microscopy TRACE NRG Squamous epithelial cells detection in urine sediment by light microscopy 0-2 NRG Crystals detection in urine sediment by light microscopy NONE NRG Casts detection in urine sediment by light microscopy NONE NRG Mucus detection in urine sediment by light microscopy MODERATE NRG Complete urinalysis with reflex to culture NO NRG Automated blood complete blood count (hemogram) panel - 03/10/17 08:11 Blood leukocytes automated count (number/volume) 6.1 10*3/uL 4.3-11.0 Blood erythrocytes automated count (number/volume) 4.68 10*6/uL 4.35-5.85 Venous blood hemoglobin measurement (mass/volume) 12.7 g/dL 11.5-16.0 Blood hematocrit (volume fraction) 40 % 35-52 Automated erythrocyte mean corpuscular volume 86 [foz_us] 80-99 Automated erythrocyte mean corpuscular hemoglobin (mass per erythrocyte) 27 pg 25-34 Automated erythrocyte mean corpuscular hemoglobin concentration measurement ( mass/volume) 32 g/dL 32-36 Automated erythrocyte distribution width ratio 15.4 % 10.0-14.5 Automated blood platelet count (count/volume) 221 10*3/uL 130-400 Automated blood platelet mean volume measurement 11.1 [foz_us] 7.4-10.4 Comprehensive metabolic panel - 03/10/17 08:11 Serum or plasma sodium measurement (moles/volume) 141 mmol/L 135-145 Serum or plasma potassium measurement (moles/volume) 3.8 mmol/L 3.6-5.0 Serum or plasma chloride measurement (moles/volume) 106 mmol/L 98-107 Carbon dioxide 27 mmol/L 21-32 Serum or plasma anion gap determination (moles/volume) 8 mmol/L 5-14 Serum or plasma urea nitrogen measurement (mass/volume) 16 mg/dL 7-18 Serum or plasma creatinine measurement (mass/volume) 0.95 mg/dL 0.60-1.30 Serum or plasma urea nitrogen/creatinine mass ratio 17 NRG Serum or plasma creatinine measurement with calculation of estimated glomerular filtration rate 58 NRG Serum or plasma glucose measurement (mass/volume) 94 mg/dL 70-105 Serum or plasma calcium measurement (mass/volume) 9.1 mg/dL 8.5-10.1 Serum or plasma total bilirubin measurement (mass/volume) 0.8 mg/dL 0.1-1.0 Serum or plasma alkaline phosphatase measurement (enzymatic activity/volume) 77 U/L 40-136 Serum or plasma aspartate aminotransferase measurement (enzymatic activity/ volume) 17 U/L 5-34 Serum or plasma alanine aminotransferase measurement (enzymatic activity/volume ) 11 U/L 0-55 Serum or plasma protein measurement (mass/volume) 6.4 g/dL 6.4-8.2 Serum or plasma albumin measurement (mass/volume) 3.8 g/dL 3.2-4.5 PT panel in platelet poor plasma by coagulation assay - 03/10/17 08:11 Prothrombin time (PT) in platelet poor plasma by coagulation assay 14.0 s 12.2-14.7 INR in platelet poor plasma or blood by coagulation assay 1.1 0.8-1.4 Activated partial thromboplastin time (aPTT) in platelet poor plasma bycoagulation assay - 03/10/17 08:11 Activated partial thromboplastin time (aPTT) in platelet poor plasma bycoagulation assay 28 s 24-35 Methicillin resistant Staphylococcus aureus (MRSA) screening culture - 08:11 Methicillin resistant Staphylococcus aureus (MRSA) screening culture NEG NRG Complete blood count (CBC) with automated white blood cell (WBC) differential - 04/20/17 14:15 Blood leukocytes automated count (number/volume) 4.5 10*3/uL 4.3-11.0 Blood erythrocytes automated count (number/volume) 4.84 10*6/uL 4.35-5.85 Venous blood hemoglobin measurement (mass/volume) 13.1 g/dL 11.5-16.0 Blood hematocrit (volume fraction) 42 % 35-52 Automated erythrocyte mean corpuscular volume 86 [foz_us] 80-99 Automated erythrocyte mean corpuscular hemoglobin (mass per erythrocyte) 27 pg 25-34 Automated erythrocyte mean corpuscular hemoglobin concentration measurement ( mass/volume) 32 g/dL 32-36 Automated erythrocyte distribution width ratio 16.0 % 10.0-14.5 Automated blood platelet count (count/volume) 229 10*3/uL 130-400 Automated blood platelet mean volume measurement 10.8 [foz_us] 7.4-10.4 Automated blood neutrophils/100 leukocytes 61 % 42-75 Automated blood lymphocytes/100 leukocytes 26 % 12-44 Blood monocytes/100 leukocytes 10 % 0-12 Automated blood eosinophils/100 leukocytes 3 % 0-10 Automated blood basophils/100 leukocytes 0 % 0-10 Blood neutrophils automated count (number/volume) 2.8 10*3 1.8-7.8 Blood lymphocytes automated count (number/volume) 1.2 10*3 1.0-4.0 Blood monocytes automated count (number/volume) 0.4 10*3 0.0-1.0 Automated eosinophil count 0.2 10*3/uL 0.0-0.3 Automated blood basophil count (count/volume) 0.0 10*3/uL 0.0-0.1 PT panel in platelet poor plasma by coagulation assay - 04/20/17 14:15 Prothrombin time (PT) in platelet poor plasma by coagulation assay 15.4 s 12.2-14.7 INR in platelet poor plasma or blood by coagulation assay 1.2 0.8-1.4 Activated partial thromboplastin time (aPTT) in platelet poor plasma bycoagulation assay - 04/20/17 14:15 Activated partial thromboplastin time (aPTT) in platelet poor plasma bycoagulation assay 30 s 24-35 Comprehensive metabolic panel - 04/20/17 14:15 Serum or plasma sodium measurement (moles/volume) 138 mmol/L 135-145 Serum or plasma potassium measurement (moles/volume) 4.2 mmol/L 3.6-5.0 Serum or plasma chloride measurement (moles/volume) 104 mmol/L 98-107 Carbon dioxide 24 mmol/L 21-32 Serum or plasma anion gap determination (moles/volume) 10 mmol/L 5-14 Serum or plasma urea nitrogen measurement (mass/volume) 13 mg/dL 7-18 Serum or plasma creatinine measurement (mass/volume) 1.02 mg/dL 0.60-1.30 Serum or plasma urea nitrogen/creatinine mass ratio 13 NRG Serum or plasma creatinine measurement with calculation of estimated glomerular filtration rate 53 NRG Serum or plasma glucose measurement (mass/volume) 105 mg/dL 70-105 Serum or plasma calcium measurement (mass/volume) 8.9 mg/dL 8.5-10.1 Serum or plasma total bilirubin measurement (mass/volume) 0.7 mg/dL 0.1-1.0 Serum or plasma alkaline phosphatase measurement (enzymatic activity/volume) 75 U/L 40-136 Serum or plasma aspartate aminotransferase measurement (enzymatic activity/ volume) 17 U/L 5-34 Serum or plasma alanine aminotransferase measurement (enzymatic activity/volume ) 12 U/L 0-55 Serum or plasma protein measurement (mass/volume) 6.7 g/dL 6.4-8.2 Serum or plasma albumin measurement (mass/volume) 3.8 g/dL 3.2-4.5 Magnesium - 04/20/17 14:15 Magnesium 1.9 mg/dL 1.8-2.4 Serum or plasma troponin i.cardiac measurement (mass/volume) - 04/20/17 14:15 Serum or plasma troponin i.cardiac measurement (mass/volume) < ng/ mL <0.30 Myoglobin, serum - 04/20/17 14:15 Myoglobin, serum 42.1 ng/mL 10.0-92.0 Serum or plasma lithium measurement (moles/volume) - 04/20/17 14:15 BNP level 475.1 pg/mL <100.0 Automated blood complete blood count (hemogram) panel - 04/28/17 07:42 Blood leukocytes automated count (number/volume) 6.0 10*3/uL 4.3-11.0 Blood erythrocytes automated count (number/volume) 4.84 10*6/uL 4.35-5.85 Venous blood hemoglobin measurement (mass/volume) 13.2 g/dL 11.5-16.0 Blood hematocrit (volume fraction) 42 % 35-52 Automated erythrocyte mean corpuscular volume 86 [foz_us] 80-99 Automated erythrocyte mean corpuscular hemoglobin (mass per erythrocyte) 27 pg 25-34 Automated erythrocyte mean corpuscular hemoglobin concentration measurement ( mass/volume) 32 g/dL 32-36 Automated erythrocyte distribution width ratio 16.2 % 10.0-14.5 Automated blood platelet count (count/volume) 219 10*3/uL 130-400 Automated blood platelet mean volume measurement 11.4 [foz_us] 7.4-10.4 Comprehensive metabolic panel - 04/28/17 07:42 Serum or plasma sodium measurement (moles/volume) 140 mmol/L 135-145 Serum or plasma potassium measurement (moles/volume) 4.1 mmol/L 3.6-5.0 Serum or plasma chloride measurement (moles/volume) 104 mmol/L 98-107 Carbon dioxide 28 mmol/L 21-32 Serum or plasma anion gap determination (moles/volume) 8 mmol/L 5-14 Serum or plasma urea nitrogen measurement (mass/volume) 14 mg/dL 7-18 Serum or plasma creatinine measurement (mass/volume) 1.10 mg/dL 0.60-1.30 Serum or plasma urea nitrogen/creatinine mass ratio 13 NRG Serum or plasma creatinine measurement with calculation of estimated glomerular filtration rate 49 NRG Serum or plasma glucose measurement (mass/volume) 104 mg/dL 70-105 Serum or plasma calcium measurement (mass/volume) 9.1 mg/dL 8.5-10.1 Serum or plasma total bilirubin measurement (mass/volume) 0.7 mg/dL 0.1-1.0 Serum or plasma alkaline phosphatase measurement (enzymatic activity/volume) 81 U/L 40-136 Serum or plasma aspartate aminotransferase measurement (enzymatic activity/ volume) 18 U/L 5-34 Serum or plasma alanine aminotransferase measurement (enzymatic activity/volume ) 15 U/L 0-55 Serum or plasma protein measurement (mass/volume) 6.8 g/dL 6.4-8.2 Serum or plasma albumin measurement (mass/volume) 3.9 g/dL 3.2-4.5 Methicillin resistant Staphylococcus aureus (MRSA) screening culture - 07:42 Methicillin resistant Staphylococcus aureus (MRSA) screening culture NEG NRG Serum or plasma lithium measurement (moles/volume) - 08/25/17 22:50 BNP level 310.0 pg/mL <100.0 Comprehensive metabolic panel - 08/25/17 22:50 Serum or plasma sodium measurement (moles/volume) 143 mmol/L 135-145 Serum or plasma potassium measurement (moles/volume) 3.4 mmol/L 3.6-5.0 Serum or plasma chloride measurement (moles/volume) 107 mmol/L 98-107 Carbon dioxide 22 mmol/L -32 Serum or plasma anion gap determination (moles/volume) 14 mmol/L 5-14 Serum or plasma urea nitrogen measurement (mass/volume) 12 mg/dL 7-18 Serum or plasma creatinine measurement (mass/volume) 0.89 mg/dL 0.60-1.30 Serum or plasma urea nitrogen/creatinine mass ratio 13 NRG Serum or plasma creatinine measurement with calculation of estimated glomerular filtration rate > NRG Serum or plasma glucose measurement (mass/volume) 104 mg/dL 70-105 Serum or plasma calcium measurement (mass/volume) 9.2 mg/dL 8.5-10.1 Serum or plasma total bilirubin measurement (mass/volume) 0.8 mg/dL 0.1-1.0 Serum or plasma alkaline phosphatase measurement (enzymatic activity/volume) 64 U/L 40-136 Serum or plasma aspartate aminotransferase measurement (enzymatic activity/ volume) 22 U/L 5-34 Serum or plasma alanine aminotransferase measurement (enzymatic activity/volume ) 16 U/L 0-55 Serum or plasma protein measurement (mass/volume) 6.3 g/dL 6.4-8.2 Serum or plasma albumin measurement (mass/volume) 3.5 g/dL 3.2-4.5 PT panel in platelet poor plasma by coagulation assay - 08/25/17 22:50 Prothrombin time (PT) in platelet poor plasma by coagulation assay 14.5 s 12.2-14.7 INR in platelet poor plasma or blood by coagulation assay 1.1 0.8-1.4 Activated partial thromboplastin time (aPTT) in platelet poor plasma bycoagulation assay - 08/25/17 22:50 Activated partial thromboplastin time (aPTT) in platelet poor plasma bycoagulation assay 30 s 24-35 Complete blood count (CBC) with automated white blood cell (WBC) differential - 08/25/17 22:50 Blood leukocytes automated count (number/volume) 5.7 10*3/uL 4.3-11.0 Blood erythrocytes automated count (number/volume) 4.35 10*6/uL 4.35-5.85 Venous blood hemoglobin measurement (mass/volume) 12.8 g/dL 11.5-16.0 Blood hematocrit (volume fraction) 39 % 35-52 Automated erythrocyte mean corpuscular volume 89 [foz_us] 80-99 Automated erythrocyte mean corpuscular hemoglobin (mass per erythrocyte) 29 pg 25-34 Automated erythrocyte mean corpuscular hemoglobin concentration measurement ( mass/volume) 33 g/dL 32-36 Automated erythrocyte distribution width ratio 14.5 % 10.0-14.5 Automated blood platelet count (count/volume) 233 10*3/uL 130-400 Automated blood platelet mean volume measurement 11.1 [foz_us] 7.4-10.4 Automated blood neutrophils/100 leukocytes 65 % 42-75 Automated blood lymphocytes/100 leukocytes 22 % 12-44 Blood monocytes/100 leukocytes 8 % 0-12 Automated blood eosinophils/100 leukocytes 4 % 0-10 Automated blood basophils/100 leukocytes 0 % 0-10 Blood neutrophils automated count (number/volume) 3.7 10*3 1.8-7.8 Blood lymphocytes automated count (number/volume) 1.3 10*3 1.0-4.0 Blood monocytes automated count (number/volume) 0.5 10*3 0.0-1.0 Automated eosinophil count 0.2 10*3/uL 0.0-0.3 Automated blood basophil count (count/volume) 0.0 10*3/uL 0.0-0.1 Serum or plasma troponin i.cardiac measurement (mass/volume) - 08/25/17 22:50 Serum or plasma troponin i.cardiac measurement (mass/volume) < ng/ mL <0.30 THYROID STIMULATING HORMONE - 08/25/17 22:50 THYROID STIMULATING HORMONE 1.39 u[iU]/mL 0.35-4.94 Blood lactic acid measurement (moles/volume) - 08/26/17 00:10 Blood lactic acid measurement (moles/volume) 0.90 mmol/L 0.50-2.00 Influenza virus A and B antigen detection - 08/26/17 00:10 CALL POSITIVES (F1 HELP) CALLED TO [facility] 08/26/17 0102 BY BSD NR FLU RESULT POSITIVE FOR INFLUENZA B ANTIGEN, NEG FOR A ANTIGEN, BY IA [facility] Bacterial blood culture - 08/26/17 00:10 Bacterial blood culture NG NR Bacterial blood culture - 08/26/17 00:50 Bacterial blood culture NG [facility] Complete urinalysis with reflex to culture - 08/26/17 03:10 Urine color determination YELLOW NRG Urine clarity determination CLEAR NR Urine pH measurement by test strip 6.5 5-9 Specific gravity of urine by test strip 1.015 1.016- 1.022 Urine protein assay by test strip, semi-quantitative NEGATIVE NEGATIVE Urine glucose detection by automated test strip NEGATIVE NEGATIVE Erythrocytes detection in urine sediment by light microscopy NEGATIVE NEGATIVE Urine ketones detection by automated test strip NEGATIVE NEGATIVE Urine nitrite detection by test strip NEGATIVE NEGATIVE Urine total bilirubin detection by test strip NEGATIVE NEGATIVE Urine urobilinogen measurement by automated test strip (mass/volume) NORMAL NORMAL Urine leukocyte esterase detection by dipstick NEGATIVE NEGATIVE Automated urine sediment erythrocyte count by microscopy (number/high power field) NONE NRG Automated urine sediment leukocyte count by microscopy (number/high power field ) NONE NRG Bacteria detection in urine sediment by light microscopy TRACE NRG Squamous epithelial cells detection in urine sediment by light microscopy 5-10 NRG Crystals detection in urine sediment by light microscopy NONE NRG Casts detection in urine sediment by light microscopy NONE NRG Mucus detection in urine sediment by light microscopy SMALL NRG Complete urinalysis with reflex to culture NO NRG Serum or plasma troponin i.cardiac measurement (mass/volume) - 08/26/17 03:30 Serum or plasma troponin i.cardiac measurement (mass/volume) < ng/ mL <0.30 Encounters ACCT No. Visit Date/Time Discharge Status Pt. Type Provider Facility Loc./Unit Complaint [id number] 09/01/2017 13:29:00 09/01/2017 23:59:59 CLS Outpatient MOHSEN MRORIS MD [facility] RAD I48.0 ATRIAL FIBRILLATION [id number] 08/25/2017 22:21:00 08/26/2017 04:31:00 DIS Emergency CASIMIRO DO ROSIE K [facility] ER SOA,IRREG HEART RATE [id number] 04/28/2017 07:11:00 04/28/2017 11:30:00 DIS Outpatient MOHSEN MORRIS MD [facility] CATH AFIB, HTN, [id number] 04/20/2017 14:04:00 04/20/2017 15:51:00 DIS Emergency SHEILA NARAYANAN WARNING [employer]ORDINATION METEOROLOGIST [facility] ER A-FIB/SOB [id number] 03/10/2017 07:06:00 03/10/2017 11:20:00 DIS Outpatient MOHSEN MORRIS MD [facility] CATH AFIB,DYSPNEA,CAD,HTN [id number] 02/10/2017 12:31:00 02/10/2017 23:59:59 CLS Outpatient MARU TAVERAS [facility] LAB I25.10 I10 E78.2 [id number] 02/08/2017 09:04:00 02/08/2017 23:59:59 CLS Outpatient MARU TAVERAS [facility] CARD CAD I25.10 [id number] 02/02/2017 10:53:00 02/02/2017 23:59:59 CLS Outpatient BIBIANA KAPADIA MD [facility] CARD IRREGULAR RHYTHM, FATIGUE [id number] 09/28/2016 10:09:00 09/28/2016 23:59:59 CLS Outpatient MARU TAVERAS [facility] LAB CAD,HTN,HLP, MAGALY [id number] 09/07/2016 13:46:00 09/07/2016 23:59:59 CLS Outpatient AGUSTIN HOWELL WARNING COORDINATION METEOROLOGIST [facility] RAD POPLITEAL PAIN,CALF PAIN,KNEE PAIN [id number] 08/25/2016 11:46:00 08/26/2016 11:30:00 DIS Outpatient MOHSEN MORRIS MD [facility] CATH CHEST PAIN [id number] 08/01/2016 11:52:00 08/01/2016 14:24:00 DIS Emergency RICK WILLSON MD [facility] ER CP/SOA [id number] 02/24/2016 07:38:00 02/24/2016 23:59:59 CLS Outpatient MARU TAVERAS [facility] CARD ANEURYSM OF AA,CAD,CHEST PAIN,HTN [id number] 02/07/2016 11:35:00 02/07/2016 23:59:59 CLS Outpatient MARU TAVERAS [facility] CARD ANEURYSM OF AA CAD,CHEST PAIN,HTN [id number] 02/04/2016 08:28:00 02/04/2016 23:59:59 CLS Outpatient MARU TAVERAS [facility] RAD ANEURYSM OF AA, CAD, CHEST PAIN, HTN [id number] 10/13/2015 13:57:00 10/13/2015 15:56:00 DIS Emergency SHIELA NARAYANAN WARNING COORDINATION METEOROLOGIST [facility] ER BOTH LEGS AND FEET SWELLING/SOB [id number] 01/24/2015 09:26:00 01/24/2015 23:59:59 CLS Outpatient MOHSEN MORRIS MD [facility] RAD CAD,DYSPNEA,HTN,HLP [id number] 11/01/2014 09:51:00 11/01/2014 23:59:59 CLS Outpatient EDD VALLE MD [facility] RAD COMPRESSION FRACTURE [id number] 10/16/2014 14:29:00 10/16/2014 23:59:59 CLS Outpatient PAMELA JOSHI MD [facility] RAD LUMBAGO [id number] 12/11/2013 07:28:00 12/11/2013 23:59:59 CLS Outpatient MARU TAVERAS [facility] CARD CAD,HTN,HLP [id number] 10/19/2013 08:29:00 10/19/2013 23:59:59 CLS Outpatient EDD VALLE MD [facility] RAD F/U AAA [id number] 10/10/2013 19:47:00 10/11/2013 06:45:00 DIS Outpatient EDD VALLE MD [facility] SLEEP ISCHEMIC HEART DISEASE,HTN [id number] 09/27/2013 11:56:00 09/27/2013 23:59:59 CLS Outpatient EDD VALLE MD [facility] RT SOB [id number] 09/18/2013 09:59:00 09/18/2013 23:59:59 CLS Outpatient EDD VALLE MD [facility] RAD SOB [id number] 04/06/2013 06:44:00 04/06/2013 08:10:00 DIS Emergency JOSE POTTER MD [facility] ER GENERAL PAIN [id number] 04/02/2013 09:07:00 04/02/2013 11:10:00 DIS Emergency BISI WILBURN MD [facility] ER LOWER BACK PAIN R LEG PAIN [id number] 03/10/2013 09:44:00 03/10/2013 23:59:59 CLS Outpatient EDD VALLE MD [facility] RAD SCREENING [id number] 12/06/2012 08:37:00 12/27/2012 09:39:00 DIS Outpatient TORI SCHAFER, EDD Rojo [facility] REHAB BACK PAIN [id number] 10/11/2014 07:57:00 Document Registration [id number] 10/08/2014 15:44:00 Document Registration [id number] 09/07/2012 07:43:00 Document Registration [id number] 08/31/2012 11:34:00 Document Registration [id number] 07/22/2012 09:57:00 Document Registration [id number] 07/20/2012 12:14:00 Document Registration [id number] 06/08/2012 10:26:00 Document Registration [id number] 04/08/2012 08:18:00 Document Registration [id number] 03/23/2012 08:00:00 Document Registration [id number] 01/13/2012 10:47:00 Document Registration [id number] 12/13/2011 06:12:00 Document Registration [id number] 12/09/2011 16:25:00 Document Registration [id number] 10/20/2011 08:25:00 Document Registration [id number] 07/29/2011 09:58:00 Document Registration [id number] 07/27/2011 09:14:00 Document Registration [id number] 06/24/2011 07:06:00 Document Registration [id number] 06/09/2011 10:50:00 Document Registration [id number] 02/03/2017 10:27:23 02/03/2017 23:59:59 CLS Outpatient
[2017-10-27 15:35] LABS: BASOPHILS % (AUTO) 0 % (0-10); EOSINOPHILS # (AUTO) 0.1 10^3/uL (0.0-0.3); EOSINOPHILS % (AUTO) 2 % (0-10); HEMATOCRIT 39 % (35-52); HEMOGLOBIN 12.6 G/DL (11.5-16.0); LYMPHOCYTES # (AUTO) 1.2 X 10^3 (1.0-4.0); LYMPHOCYTES % (AUTO) 20 % (12-44); MEAN CORPUSCULAR HEMOGLOBIN 29 PG (25-34); MEAN CORPUSCULAR HGB CONC 33 G/DL (32-36); MEAN CORPUSCULAR VOLUME 88 FL (80-99); MONOCYTES # (AUTO) 0.4 X 10^3 (0.0-1.0); MONOCYTES % (AUTO) 6 % (0-12); NEUTROPHILS # (AUTO) 4.2 X 10^3 (1.8-7.8); NEUTROPHILS % (AUTO) 71 % (42-75); PLATELET COUNT 230 10^3/uL (130-400); RED BLOOD COUNT 4.41 10^6/uL (4.35-5.85); RED CELL DISTRIBUTION WIDTH 14.5 % (10.0-14.5); WHITE BLOOD COUNT 5.9 10^3/uL (4.3-11.0)
[2017-10-27 15:46] LABS: INR 1.3 (0.8-1.4)
[2017-10-27 15:49] LABS: ALANINE AMINOTRANSFERASE 13 U/L (0-55); ALBUMIN 3.9 GM/DL (3.2-4.5); ALKALINE PHOSPHATASE 66 U/L (40-136); BILIRUBIN,TOTAL 0.8 MG/DL (0.1-1.0); BUN/CREATININE RATIO 15; CALCIUM 8.9 MG/DL (8.5-10.1); CARBON DIOXIDE 27 MMOL/L (21-32); CHLORIDE 108 MMOL/L (98-107); CREATININE SERUM 0.96 MG/DL (0.60-1.30); GFR ESTIMATED 57; GLUCOSE 127 MG/DL (70-105); MAGNESIUM 1.7 MG/DL (1.8-2.4); POTASSIUM 3.8 MMOL/L (3.6-5.0); SODIUM 141 MMOL/L (135-145); TOTAL PROTEIN 6.5 GM/DL (6.4-8.2)
[2017-10-27 15:56] LABS: MYOGLOBIN SERUM 48.1 NG/ML (10.0-92.0)
--- NOTE | 2017-10-27 15:57 | Diagnostic Imaging Report ---
INDICATION: Shortness of air. COMPARISON: 08/25/2017. FINDINGS: Single frontal radiographic view of the chest was obtained and demonstrates borderline prominence of the cardiac silhouette. Pulmonary vasculature is also slightly prominent. There is no evidence of interstitial edema on today's exam. There is no focal consolidation, large effusion, nor pneumothorax. Sternotomy wires are noted. Bony structures show no gross acute abnormalities. IMPRESSION: 1. Borderline cardiomegaly and persistent mild pulmonary vascular congestion. Interstitial edema, however, is improved. Dictated by: Dictated on workstation # [id number]
--- NOTE | 2017-10-27 16:08 | ED General ---
General Stated Complaint: SOB Source of Information: Patient Exam Limitations: No Limitations History of Present Illness Date Seen by Provider: Oct 27, 2017 Time Seen by Provider: 16:02 Initial Comments The patient is a 72-year-old white female sent here on directions of Dr. Tinoco' s office. She apparently had informed them that she was becoming quite short of breath. She states that she has been short of breath for several weeks now but more so over the past couple of days. She notes greater dyspnea on exertion. She is known to be in atrial fibrillation chronically. She is not aware of rapid rate. She did not take her Lasix this morning as she knew she was coming here and feared incontinence. She reports that she has slept in a recliner for a long time and that the present shortness of breath has nothing to do with that. Timing/Duration: 3-4 Days Associated Systoms: Shortness of Air Allergies and Home Medications Allergies Coded Allergies: Iodinated Contrast- Oral and IV Dye (Unverified Allergy, Mild, NAUSEA, 21/02) Pt states it's the IV dye used in heart tests not CT scans penicillin G (Verified Allergy, Unknown, 04/24/07) RASH Home Medications Acetaminophen with Codeine 1 Each Tablet, 1 TAB PO Q6H PRN for BACK PAIN, ( Reported) Apixaban 5 Mg Tablet, 5 MG PO BID, (Reported) Atorvastatin Calcium 80 Mg Tablet, 40 MG PO DAILY, (Reported) TAKES 1/2 (80MG) TABLET Cholecalciferol (Vitamin D3) 2,000 Unit Tablet, 2,000 UNIT PO DAILY, (Reported) Ezetimibe 10 Mg Tablet, 10 MG PO DAILY, (Reported) Furosemide 20 Mg Tablet, 20 MG PO DAILY, (Reported) Metoprolol Succinate 100 Mg Tab.er.24h, 100 MG PO DAILY, (Reported) Omeprazole 20 Mg Capsule.dr, 20 MG PO DAILY, (Reported) Paroxetine Hcl 20 Mg Tablet, 20 MG PO HS, (Reported) Potassium Chloride 10 Meq Tab.er.prt, 10 MEQ PO DAILY, (Reported) Sacubitril/Valsartan 1 Each Tablet, 1 EACH PO BID, (Reported) Terazosin HCl 5 Mg Capsule, 5 MG PO DAILY, (Reported) Trazodone Hcl 50 Mg Tab, 50 MG PO HS, (Reported) Zolpidem Tartrate 10 Mg Tablet, 10 MG PO HS, (Reported) Patient Home Medication List Home Medication List Reviewed: Yes Constitutional: see HPI EENTM: no symptoms reported Respiratory: short of breath Cardiovascular: palpitations Gastrointestinal: no symptoms reported Genitourinary: no symptoms reported Musculoskeletal: no symptoms reported Skin: no symptoms reported Psychiatric/Neurological: No Symptoms Reported Hematologic/Lymphatic: No Symptoms Reported Past Vuymqwa-Qkijoe-Mllkhk Hx Patient Social History Type Used: Cigarettes Former Smoker, Quit: Apr 28, 1991 2nd Hand Smoke Exposure: No Recent Foreign Travel: No Contact w/Someone Who Travel: No Recent Hopitalizations: No Immunizations Up To Date Tetanus Booster (TDap): Unknown Date of Pneumonia Vaccine: Sep 07, 2008 Date of Influenza Vaccine: May 26, 2016 Seasonal Allergies Seasonal Allergies: No Surgeries History of Surgeries: Yes (HERNIA REP) Surgeries: Eye Surgery, Gallbladder, Orthopedic Respiratory History of Respiratory Disorde: Yes (sleep apnea no cpap) Respiratory Disorders: Sleep Apnea Currently Using CPAP: No Currently Using BIPAP: No Cardiovascular History of Cardiac Disorders: Yes Cardiac Disorders: High Cholesterol, Hypertension Neurological History of Neurological Disord: No Reproductive System Hx Reproductive Disorders: No Sexually Transmitted Disease: No HIV/AIDS: No Female Reproductive Disorders: Denies Genitourinary History of Genitourinary Disor: Yes (bladder sling ) Gastrointestinal History of Gastrointestinal Di: Yes Gastrointestinal Disorders: Gastroesophageal Reflux Musculoskeletal History of Musculoskeletal Dis: Yes (hx fx wrist, lower back disc ) Musculoskeletal Disorders: Arthritis Endocrine History of Endocrine Disorders: No HEENT History of HEENT Disorders: Yes HEENT Disorders: Cataract Hearing Impairment: Hard of Hearing Cancer History of Cancer: No Psychosocial History of Psychiatric Problem: Yes Behavioral Health Disorders: Anxiety, Depression Integumentary History of Skin or Integumenta: Yes (chronic abd folds/under breast rash ) Blood Transfusions History of Blood Disorders: No Adverse Reaction to a Blood Tr: No Family Medical History Significant Family History: No Pertinent Family Hx Family Medial History: Arthritis Cardiovascular disease Hypertension Physical Exam Vital Signs Vital Signs - First Documented 10/27/17 14:47 Pulse Ox 97 O2 Delivery Nasal Cannula O2 Flow Rate 2.00 Capillary Refill : General Appearance: Mild Distress, Moderate Distress Eyes: Bilateral Eye Normal Inspection HEENT: Normal ENT Inspection Neck: Full Range of Motion, Normal Inspection, Non Tender, Supple, Carotid Bruit Respiratory: Chest Non Tender, Lungs Clear, Normal Breath Sounds, No Accessory Muscle Use, No Respiratory Distress Cardiovascular: Irregularly Irregular Gastrointestinal: Normal Bowel Sounds, No Organomegaly, No Pulsatile Mass, Non Tender, Soft Back: Normal Inspection Extremity: Pedal Edema Neurologic/Psychiatric: Alert, Oriented x3, No Motor/Sensory Deficits, Normal Mood/Affect Progress/Results/Core Measures Suspected Sepsis SIRS Temperature: Pulse: Respiratory Rate: Laboratory Tests 10/27/17 15:00: White Blood Count 5.9 Blood Pressure / Mean: Laboratory Tests 10/27/17 15:00: Creatinine 0.96, INR Comment 1.3, Platelet Count 230, Total Bilirubin 0.8 Results/Orders Lab Results Laboratory Tests Test 10/27/17 15:00 Range/Units White Blood Count 5.9 4.3-11.0 10^3/uL Red Blood Count 4.41 4.35-5.85 10^6/uL Hemoglobin 12.6 11.5-16.0 G/DL Hematocrit 39 35-52 % Mean Corpuscular Volume 88 80-99 FL Mean Corpuscular Hemoglobin 29 25-34 PG Mean Corpuscular Hemoglobin Concent 33 32-36 G/DL Red Cell Distribution Width 14.5 10.0-14.5 % Platelet Count 230 130-400 10^3/uL Mean Platelet Volume 11.0 H 7.4-10.4 FL Neutrophils (%) (Auto) 71 42-75 % Lymphocytes (%) (Auto) 20 12-44 % Monocytes (%) (Auto) 6 0-12 % Eosinophils (%) (Auto) 2 0-10 % Basophils (%) (Auto) 0 0-10 % Neutrophils # (Auto) 4.2 1.8-7.8 X 10^3 Lymphocytes # (Auto) 1.2 1.0-4.0 X 10^3 Monocytes # (Auto) 0.4 0.0-1.0 X 10^3 Eosinophils # (Auto) 0.1 0.0-0.3 10^3/uL Basophils # (Auto) 0.0 0.0-0.1 10^3/uL Prothrombin Time 16.0 H 12.2-14.7 SEC INR Comment 1.3 0.8-1.4 Activated Partial Thromboplast Time 30 24-35 SEC Sodium Level 141 135-145 MMOL/L Potassium Level 3.8 3.6-5.0 MMOL/L Chloride Level 108 H 98-107 MMOL/L Carbon Dioxide Level 27 21-32 MMOL/L Anion Gap 6 5-14 MMOL/L Blood Urea Nitrogen 14 7-18 MG/DL Creatinine 0.96 0.60-1.30 MG/DL Estimat Glomerular Filtration Rate 57 BUN/Creatinine Ratio 15 Glucose Level 127 H 70-105 MG/DL Calcium Level 8.9 8.5-10.1 MG/DL Magnesium Level 1.7 L 1.8-2.4 MG/DL Total Bilirubin 0.8 0.1-1.0 MG/DL Aspartate Amino Transf (AST/SGOT) 16 5-34 U/L Alanine Aminotransferase (ALT/SGPT) 13 0-55 U/L Alkaline Phosphatase 66 40-136 U/L Myoglobin 48.1 10.0-92.0 NG/ML Troponin I < 0.30 <0.30 NG/ML Total Protein 6.5 6.4-8.2 GM/DL Albumin 3.9 3.2-4.5 GM/DL My Orders Orders - PREMA MALIK MD Cbc With Automated Diff (10/27/17 15:26) Magnesium (10/27/17 15:26) Chest 1 View, Ap/Pa Only (10/27/17 15:26) Ekg Tracing (10/27/17 15:26) Cardiac Profile 1 (10/27/17 15:26) Comprehensive Metabolic Panel (10/27/17 15:26) Myoglobin Serum (10/27/17 15:26) Protime With Inr (10/27/17 15:26) Partial Thromboplastin Time (10/27/17 15:26) O2 (10/27/17 15:26) Monitor-Rhythm Ecg Trace Only (10/27/17 15:26) Lipid Panel (10/28/17 06:00) Saline Lock/Iv-Start (10/27/17 15:26) Furosemide Injection (Lasix Injection) (10/27/17 16:15) Medications Given in ED Current Medications Medications Dose Ordered Sig/Dominique Route Start Time Stop Time Status Last Admin Dose Admin Furosemide 40 mg ONCE ONCE IVP 10/27/17 16:15 10/27/17 16:16 DC 10/27/17 16:16 40 MG Vital Signs/I&O Vital Sign - Last 12Hours 10/27/17 14:47 Pulse Ox 97 O2 Delivery Nasal Cannula O2 Flow Rate 2.00 Capillary Refill : Departure Communication (Admissions) Progress Notes 1652 the patient is responding well to the IV Lasix. Impression Impression: Primary Impression: moderate pulmonary edema Disposition: HOME, SELF-CARE Condition: Improved Departure-Patient Inst. Decision time for Depature: 16:50 Referrals: BIBIANA KAPADIA MD (PCP/Family) Primary Care Physician Patient Instructions: CHF Add. Discharge Instructions: In the morning take 2 20 mg Lasix instead of your previous one. Take 2 of your 10 mEq potassium daily as well. Make appointment to see PREMA Pacheco MD Oct 27, 2017 16:08
[2017-10-27] MEDS ORDERED: FUROSEMIDE 40 MG/4 ML INJ (LASIX) IVP ONE (16:15)
[2017-10-27 17:19] VITALS: BP 131/63
== END 2017-10-27 17:19 | disposition home or self-care (01) ==
LOC: EDUNIT# 14:46 → ER 14:49
DX: J81.1 Chronic pulmonary edema (principal); G47.30 Sleep apnea, unspecified; E78.00 Pure hypercholesterolemia, unspecified; I10 Essential (primary) hypertension; K21.9 Gastro-esophageal reflux disease without esophagitis; F41.9 Anxiety disorder, unspecified; F32.9 Major depressive disorder, single episode, unspecified; Z96.0 Presence of urogenital implants; Z82.49 Family history of ischemic heart disease and other diseases of the circulatory system; Z88.0 Allergy status to penicillin; Z91.041 Radiographic dye allergy status; Z79.01 Long term (current) use of anticoagulants; Z87.891 Personal history of nicotine dependence; Z87.19 Personal history of other diseases of the digestive system
CPT/HCPCS: 36415; 71045; 80053; 83735; 83874; 84484; 85025; 85610; 85730; 93005; 93041; 96374

== ENCOUNTER 2017-11-08 07:49 | Inpatient (IN) | payer MEDICARE, OTHER ==
[~2017-11-08] VITALS: Ht 170.2 cm; Wt 117.5 kg
[2017-11-08 08:15] VITALS: BP 103/70
[2017-11-08 08:30] LABS: RED BLOOD COUNT 4.31 10^6/uL (4.35-5.85); WHITE BLOOD COUNT 4.7 10^3/uL (4.3-11.0)
[2017-11-08 08:47] LABS: ALBUMIN 3.7 GM/DL (3.2-4.5); BILIRUBIN,TOTAL 0.4 MG/DL (0.1-1.0); CALCIUM 8.8 MG/DL (8.5-10.1); CREATININE SERUM 1.1 MG/DL (0.60-1.30); MAGNESIUM 1.9 MG/DL (1.8-2.4); POTASSIUM 3.8 MMOL/L (3.6-5.0); TOTAL PROTEIN 6.2 GM/DL (6.4-8.2)
[2017-11-08 09:13] LABS: INR 1.3 (0.8-1.4); PROTHROMBIN TIME PATIENT 16.6 SEC (12.2-14.7)
--- NOTE | 2017-11-08 09:22 | Cardiology History & Physical ---
HPI-Cardiology Cardiology Consultation Date of Consultation 11/08/17 Date of Admission Time Seen by Provider: 09:38 Indication: Shortness of breath HPI 72 years old lady with history of congestive heart failure, chronic paroxysmal atrial fibrillation, has been complaining of fatigue and shortness of breath. Worsening recently. Seen in the office and noted to be in atrial fibrillation with controlled rate, we had a long discussion with the patient and decided to consider antiarrhythmic medication. With her comorbid condition with a heart failure and coronary artery disease decision was made to try sotalol, patient was admitted electively, I will load her with sotalol and monitor her EKG and if she did not convert I will consider VIANCA with cardioversion. I will continue with aggressive medical therapy at this time and continue to monitor her, she still complaining of fatigue and loss of energy in addition to dyspnea on exertion. PMH-Cardiology Immunizations Up To Date Tetanus Booster (DTap): Unknown Date of Pneumonia Vaccine: Sep 07, 2008 Date of Influenza Vaccine: May 26, 2016 Seasonal Allergies Seasonal Allergies: No Surgeries Yes (HERNIA REPAIR; EGD; VIANCA/CARDIOVERSION) Gall Bladder, Hysterectomy, Appendectomy, Bladder Surgery, CABG, Orthopedic Respiratory Yes (sleep apnea no cpap) Cardiovascular Yes (VIANCA/CARDIOVERSION 04/2017 MOST RECENTLY) Aneurysm, Deep Vein Thrombosis, Angina, Atrial Fibrillation, Heart Attack, High Cholesterol, Hypertension, Congestive Heart Failure, Coronary Artery Disease Neurological No Reproductive System Hx Reproductive Disorders: No Sexually Transmitted Disease: No HIV/AIDS: No Female Reproductive Disorders: Denies Genitourinary Yes (bladder sling ) Gastrointestinal Yes Abdominal Hernia, Gastroesophageal Reflux, Hiatal Hernia, Irritable Bowel Musculoskeletal Yes (hx fx left wrist, lower back disc ) Degenerate Disk Disease, Arthritis, Chronic Back Pain Endocrine No HEENT Yes (bilateral cataracts removed) Cataract Loss of Vision: Denies Hearing Impairment: Hard of Hearing Cancer No Psychosocial Yes Anxiety, Depression Integumentary Yes (chronic abd folds/under breast rash ) Blood Transfusions No Adverse Rxn to Transfusion: No Other PMHx Past medical history as discussed below Social History Patient Social History Marrital Status: Employed/Student: retired Alcohol Use: Denies Use Recreational Drug Use: No Dip or chew tobacco?: No Recent Foreign Travel: No Contact w/other who traveled: No Recent Infectious Disease Expo: No Family Hx Significant Family History: No Pertinent Family Hx Family History: Arthritis Cardiovascular disease 19 FATHER 19 MOTHER G8 BROTHER FH: ID (myocardial infarction) 19 FATHER ( at 67 from ID) 19 MOTHER ( at 39 from ID) Hypertension ROS-Cardiology Review of Systems General: No Chills, No Night Sweats; Fatigue; No Malaise, No Appetite HEENT: No Head Aches, No Visual Changes, No Eye Pain, No Ear Pain, No Dysphasia , No Sinus Congestion, No Post Nasal Drip, No Sore Throat Pulmonary: Dyspnea; No Cough, No Pleuritic Chest Pain Cardiovascular: No: Chest Pain, Palpitations, Orthopnea, Paroxysmal Noc. Dyspnea, Edema, Lt Headedness Gastrointestinal: No: Nausea, Vomiting, Abdominal Pain, Diarrhea, Constipation , Melena, Hematochezia Genitourinary: No Dysuria, No Frequency, No Incontinence, No Hematuria, No Retention Musculoskeletal: No: neck pain, shoulder pain, arm pain, back pain, hand pain, leg pain, foot pain Neurological: No: Weakness, Numbness, Incoordination, Change in speech, Confusion, Seizures Home Medications & Allergies Allergies: Coded Allergies: Iodinated Contrast- Oral and IV Dye (Unverified Allergy, Mild, NAUSEA, 21/02) Pt states it's the IV dye used in heart tests not CT scans penicillin G (Verified Allergy, Unknown, 04/24/07) RASH Home Medication List Reviewed: Yes Exam-Cardiology Exam General Appearance: Alert, Oriented X3, Cooperative, No Acute Distress HEENT: Atraumatic, PERRLA Respiratory: Clear to Auscultation, Normal Air Movement Cardiovascular: Normal S1, Normal S2, No Murmurs, Other (Atrial fibrillation with controlled rate) Abdominal: Normal Bowel Sounds, Soft, No Tenderness, No Hepatosplenomegaly, No Masses Extremities: No Clubbing, No Cyanosis, No Edema, Normal Pulses, No Tenderness/ Swelling Skin: No Rashes, No Breakdown, No Significant Lesion Neuro: Normal Gait, Normal Speech, Strength at 5/5 X4 Ext, Normal Tone, Sensation Intact Psych/Mental Status: Mental Status NL, Mood NL Results Labs Labs Laboratory Tests 11/08/17 08:20: White Blood Count 4.7, Red Blood Count 4.31L, Hemoglobin 12.0, Hematocrit 38, Mean Corpuscular Volume 89, Mean Corpuscular Hemoglobin 28, Mean Corpuscular Hemoglobin Concent 31L, Red Cell Distribution Width 15.0H, Platelet Count 215, Mean Platelet Volume 11.0H, Prothrombin Time 16.6H, INR Comment 1.3, Activated Partial Thromboplast Time 30, Sodium Level 140, Potassium Level 3.8, Chloride Level 108H, Carbon Dioxide Level 23, Anion Gap 9, Blood Urea Nitrogen 12, Creatinine 1.10, Estimat Glomerular Filtration Rate 49, BUN/Creatinine Ratio 11 , Glucose Level 105, Calcium Level 8.8, Magnesium Level 1.9, Total Bilirubin 0.4 , Aspartate Amino Transf (AST/SGOT) 17, Alanine Aminotransferase (ALT/SGPT) 12, Alkaline Phosphatase 68, Total Protein 6.2L, Albumin 3.7, Thyroid Stimulating Hormone (TSH) 2.53 A/P-Cardiology Admission Diagnosis Paroxysmal atrial fibrillation Coronary artery disease Hypertension Hyperlipidemia Admission Status: Inpatient Order (span 2 midnights) Reason for Inpatient Admission: Patient will be admitted to for loading with sotalol which require 72 hours monitoring in the hospital Assessment/Plan Paroxysmal atrial fibrillation, history of VIANCA cardioversion last year. Had been maintained in sinus rhythm. Patient evaluated in the ER last week, found to be in atrial fibrillation, rate controlled. Patient is symptomatic with fatigue and shortness of breath. Had discussion with patient, planning to admit her to the hospital for sotalol initiation, possible VIANCA with cardioversion if she does not convert on sotalol. I will continue current medication at this time. [id number] score of 4, yearly risk of stroke without oral anticoagulation is 4 percent. Maintained on Eliquis 5 mg twice daily, continue on the same medication Coronary artery disease, history of CABG 4 in 2003 with most recent cardiac catheterization August 25, 2016 revealing severe [place] coronary artery disease with patent bypass grafts including SWEET to LAD, vein graft obtuse marginal, vein graft to the right coronary artery was small vessel disease distally. EF 60 percent. Continue to monitor. No changes recommended at this time. Congestive heart failure, left ventricular systolic dysfunction, EF 35-40%, improved to 60% per echo done Aug 2017. Maintained on beta delaney and Entresto. No congestive heart failure at this time Chest pain, nonspecific etiology, improved. Continue to monitor. Intolerance to isosorbide. Gastritis, esophageal diverticulum per EGD done July 2016. Maintained on protonix, Carafate. Dyspnea on exertion, chronic, slightly worse at this time. COPD/obstructive sleep apnea, noncompliant with her sleep apnea machine Hypertension, controlled, continue to monitor BP/HR. Intolerance to isosorbide secondary to headache. Patient was instructed to discontinue medication. History of sinus bradycardia, currently asymptomatic. Continue to monitor closely Hyperlipidemia, patient due for lipid/CMP Small infrarenal abdominal aortic aneurysm, last CT scan was done in March 2013 measuring the aorta at 3.9 cm, ultrasound of the abdominal aorta reported as focal ectasia in the infrarenal abdominal aorta. Abdominal aortic ultrasound done in January 2016 revealed no evidence of aneurysm. Continue to monitor. Mild bilateral carotid stenosis, last ultrasound was done in August 2016. Continue to monitor. History of pulmonary hypertension, patent foramen ovale, echocardiogram from Aug 2017 revealed PA pressure 60mmHg. Peripheral edema, reporting improvement. Continue to monitor Clinical Quality Measures DVT/VTE Risk/Contraindication: Risk Factor Score Per Nursin RFS Level Per Nursing on Admit: 4+=Very High MOHSEN MORRIS MD Nov 08, 2017 09:22
[2017-11-08] MEDS: SOTALOL 80 MG (BETAPACE) TAB PO SCH ×2 (09:54→20:02)
[2017-11-08] MEDS: APIXABAN 5 MG (ELIQUIS) TABLET PO SCH ×2 (09:54→20:03)
[2017-11-08] MEDS ORDERED: PARO20TA5 PO (10:04)
[2017-11-08] MEDS ORDERED: SACU1TAB7 PO (10:04)
[2017-11-08] MEDS ORDERED: TRAZ-189 PO (10:04)
[2017-11-08] MEDS ORDERED: EZET10TA27 PO (10:04)
[2017-11-08] MEDS ORDERED: APAP 300 MG/CODEINE 30 MG (TYLENOL #3) TAB PO PRN (11:00)
[2017-11-08 11:59] VITALS: BP 116/72
[2017-11-08] MEDS ORDERED: CATHETER FLUSH 10 ML SYR IV PRN (14:15)
[2017-11-08 16:16] VITALS: BP 94/55
[2017-11-08] MEDS: KCL 10 MEQ TAB (MICRO K) PO SCH (18:41)
[2017-11-08 20:00] VITALS: BP 111/68
[2017-11-08] MEDS: PARoxetine 20 MG (PAXIL) TAB PO SCH (20:02)
[2017-11-08] MEDS: ATORVASTATIN 40 MG (LIPITOR) TABLET PO SCH (20:03)
[2017-11-08] MEDS: SACUBITRIL/VALSARTAN 24/26 MG (ENTRESTO) TABLET PO SCH (20:03)
[2017-11-08] MEDS: CATHETER FLUSH 10 ML SYR IV SCH (23:55)
[2017-11-08] MEDS: ZOLPIDEM 5 MG (AMBIEN) TAB PO SCH (23:55)
[2017-11-09] VITALS: BP 140/85
[2017-11-09 04:00] VITALS: BP 129/79
--- NOTE | 2017-11-09 07:16 | Cardiology Progress Note ---
Subjective Date Seen by Provider: Nov 09, 2017 Time Seen by Provider: 07:14 Subjective/Events-last exam Patient is in her bed, denied any chest pain or shortness of breath, tolerating Sotalol well Review of Systems General: No Chills, No Night Sweats, No Fatigue, No Malaise, No Appetite, No Other HEENT: No Head Aches, No Visual Changes, No Eye Pain, No Ear Pain, No Dysphasia , No Sinus Congestion, No Post Nasal Drip, No Sore Throat, No Other Pulmonary: No Dyspnea, No Cough, No Pleuritic Chest Pain, No Other Cardiovascular: No: Chest Pain, Palpitations, Orthopnea, Paroxysmal Noc. Dyspnea, Edema, Lt Headedness, Other Objective-Cardiology Exam Last Set of Vital Signs Vital Signs 11/08/17 11/08/17 11/09/17 16:16 21:00 01:00 Temp 97.6 Pulse 63 Resp 15 B/P (MAP) 94/55 (68) Pulse Ox 93 O2 Delivery Room Air Capillary Refill : I&O Intake and Output 11/09/17 00:00 Intake Total 730 ml Output Total 1600 ml Balance -870 ml Intake Oral 730 ml Output Urine Total 1600 ml # Bowel Movements 1 Daily Weight Change No General: Alert, Oriented X3, Cooperative, No Acute Distress HEENT: Atraumatic, PERRLA Lungs: Clear to Auscultation, Normal Air Movement Heart: Normal S1, Normal S2, No Murmurs, Other (Atrial fibrillation with controlled rate) Abdomen: Normal Bowel Sounds, Soft, No Tenderness, No Hepatosplenomegaly, No Masses Extremities: No Clubbing, No Cyanosis, No Edema, Normal Pulses, No Tenderness/ Swelling Skin: No Rashes, No Breakdown, No Significant Lesion Neuro: Normal Gait, Normal Speech, Strength at 5/5 X4 Ext, Normal Tone, Sensation Intact Psych/Mental Status: Mental Status NL, Mood NL Results Lab Laboratory Tests 11/08/17 08:20 A/P-Cardiology Admission Diagnosis Paroxysmal atrial fibrillation Coronary artery disease Hypertension Hyperlipidemia Assessment/Plan Paroxysmal atrial fibrillation, history of VIANCA cardioversion last year. Had been maintained in sinus rhythm. Patient evaluated in the ER last week, found to be in atrial fibrillation, rate controlled. Patient is symptomatic with fatigue and shortness of breath. Tolerating loading dose of Sotalol. Planning for VIANCA/ Cardioversion tomorrow [id number] score of 4, yearly risk of stroke without oral anticoagulation is 4 percent. Maintained on Eliquis 5 mg twice daily, continue on the same medication Coronary artery disease, history of CABG 4 in 2003 with most recent cardiac catheterization August 25, 2016 revealing severe [place] coronary artery disease with patent bypass grafts including SWEET to LAD, vein graft obtuse marginal, vein graft to the right coronary artery was small vessel disease distally. EF 60 percent. Continue to monitor. No changes recommended at this time. Congestive heart failure, left ventricular systolic dysfunction, EF 35-40%, improved to 60% per echo done Aug 2017. Maintained on beta delaney and Entresto. No congestive heart failure at this time Chest pain, nonspecific etiology, improved. Continue to monitor. Intolerance to isosorbide. Gastritis, esophageal diverticulum per EGD done July 2016. Maintained on protonix, Carafate. Dyspnea on exertion, chronic, slightly worse at this time. COPD/obstructive sleep apnea, noncompliant with her sleep apnea machine Hypertension, controlled, continue to monitor BP/HR. Intolerance to isosorbide secondary to headache. Patient was instructed to discontinue medication. History of sinus bradycardia, currently asymptomatic. Continue to monitor closely Hyperlipidemia, patient due for lipid/CMP Small infrarenal abdominal aortic aneurysm, last CT scan was done in March 2013 measuring the aorta at 3.9 cm, ultrasound of the abdominal aorta reported as focal ectasia in the infrarenal abdominal aorta. Abdominal aortic ultrasound done in January 2016 revealed no evidence of aneurysm. Continue to monitor. Mild bilateral carotid stenosis, last ultrasound was done in August 2016. Continue to monitor. History of pulmonary hypertension, patent foramen ovale, echocardiogram from Aug 2017 revealed PA pressure 60mmHg. Peripheral edema, reporting improvement. Continue to monitor Clinical Quality Measures DVT/VTE Risk/Contraindication: Risk Factor Score Per Nursin RFS Level Per Nursing on Admit: 4+=Very High MOHSEN MORRIS MD Nov 09, 2017 07:16
[2017-11-09] MEDS: KCL 10 MEQ TAB (MICRO K) PO SCH ×2 (07:38→17:12)
[2017-11-09] MEDS: PANTOPRAZOLE 20 MG TABLET (PROTONIX) PO SCH (07:39)
[2017-11-09] MEDS: APIXABAN 5 MG (ELIQUIS) TABLET PO SCH ×2 (07:39→20:38)
[2017-11-09] MEDS: SACUBITRIL/VALSARTAN 24/26 MG (ENTRESTO) TABLET PO SCH ×2 (07:39→20:38)
[2017-11-09] MEDS: FUROSEMIDE 20 MG (LASIX) TAB PO SCH (07:39)
[2017-11-09] MEDS: SOTALOL 80 MG (BETAPACE) TAB PO SCH ×2 (07:40→20:38)
[2017-11-09] MEDS: traZODone 50 MG (DESYREL) TAB PO SCH (07:40)
[2017-11-09] MEDS: eZETimibe 10 MG (ZETIA) TABLET PO SCH (07:42)
[2017-11-09] MEDS: TERAZOSIN 5 MG (HYTRIN) CAPSULE PO SCH (07:43)
[2017-11-09] MEDS: CATHETER FLUSH 10 ML SYR IV SCH ×3 (07:44→20:48)
[2017-11-09 08:00] VITALS: BP 142/84
[2017-11-09] MEDS ORDERED: LIDOCAINE 2% VISCOUS 15 ML UDC PO NR (08:27)
[2017-11-09 12:00] VITALS: BP 121/81
[2017-11-09 16:00] VITALS: BP 104/74
[2017-11-09 20:28] VITALS: BP 100/52
[2017-11-09] MEDS: ATORVASTATIN 40 MG (LIPITOR) TABLET PO SCH (20:38)
[2017-11-09] MEDS: PARoxetine 20 MG (PAXIL) TAB PO SCH (20:38)
[2017-11-09] MEDS: ZOLPIDEM 5 MG (AMBIEN) TAB PO SCH (22:44)
[2017-11-10] VITALS (8 sets, daily range): BP systolic 87–132; BP diastolic 41–91
[2017-11-10] MEDS ORDERED: NS IV 500 ML 500 ML ONE (05:12)
[2017-11-10] MEDS: CATHETER FLUSH 10 ML SYR IV SCH ×3 (06:24→22:00)
[2017-11-10] MEDS: PANTOPRAZOLE 20 MG TABLET (PROTONIX) PO SCH ×2 (06:24→09:09)
[2017-11-10] MEDS: KCL 10 MEQ TAB (MICRO K) PO SCH ×2 (06:24→17:25)
--- NOTE | 2017-11-10 07:29 | Cardiac Procedure Note-CS/ASA ---
Pre-Procedure Note Pre-Op Procedure Note H&P Reviewed The H&P was reviewed, patient examined and no changes noted. Date H&P Reviewed: Nov 10, 2017 Time H&P Reviewed: :29 Conscious Sedation Pre-Proced Time Reviewed: : ASA Class: 3 Airway Mallampati Classification: ([place] appropriate class) I. II. III, IV Lungs Heart ASA score ASA 1: a normal healthy patient ASA 2: a patient with a mild systemic disease (mid diabetes, controlled hypertension, obesity x ASA 3: a patient with a severe systemic disease that limits activity (angina , COPD, prior Myocardial infarction) ASA 4: a patient with an incapacitating disease that is a constant threat to life (CHF, renal failure) ASA 5: a moribund patient not expected to survive 24 hrs. (ruptured aneurysm) ASA 6: a declared brain patient whose organs are being harvested. For emergent operations, add the letter E after the classification Grade 3 Sedation Plan: Analgesia, Amnesia, Plan communicated to team members, Discussed options with patient/fam, Discussed risks with patient/fam Note The patient is an appropriate candidate to undergo the planned procedure, sedation, and anesthesia. The patient immediately re-assessed prior to indication. MOHSEN MORRIS MD Nov 10, 2017 07:29
--- NOTE | 2017-11-10 07:29 | Cardiology Progress Note ---
Subjective Date Seen by Provider: Nov 10, 2017 Time Seen by Provider: 07:28 Subjective/Events-last exam Patient is laying down in bed, feeling better. Denied any chest pain. Review of Systems General: No Chills, No Night Sweats, No Fatigue, No Malaise, No Appetite, No Other HEENT: No Head Aches, No Visual Changes, No Eye Pain, No Ear Pain, No Dysphasia , No Sinus Congestion, No Post Nasal Drip, No Sore Throat, No Other Pulmonary: No Dyspnea, No Cough, No Pleuritic Chest Pain, No Other Cardiovascular: No: Chest Pain, Palpitations, Orthopnea, Paroxysmal Noc. Dyspnea, Edema, Lt Headedness, Other Objective-Cardiology Exam Last Set of Vital Signs Vital Signs 11/10/17 04:56 Temp 97.7 Pulse 87 Resp 20 B/P (MAP) 132/91 (105) Pulse Ox 93 O2 Delivery Room Air Capillary Refill : I&O Intake and Output 11/10/17 00:00 Intake Total 1400 ml Output Total 2700 ml Balance -1300 ml Intake Oral 1400 ml Output Urine Total 2700 ml General: Alert, Oriented X3, Cooperative, No Acute Distress HEENT: Atraumatic, PERRLA Neck: Supple, No JVD Lungs: Clear to Auscultation, Normal Air Movement Heart: Normal S1, Normal S2, No Murmurs, Other (Atrial fibrillation with controlled rate) Abdomen: Normal Bowel Sounds, Soft, No Tenderness, No Hepatosplenomegaly, No Masses Extremities: No Clubbing, No Cyanosis, No Edema, Normal Pulses, No Tenderness/ Swelling Skin: No Rashes, No Breakdown, No Significant Lesion Neuro: Normal Gait, Normal Speech, Strength at 5/5 X4 Ext, Normal Tone, Sensation Intact Psych/Mental Status: Mental Status NL, Mood NL A/P-Cardiology Admission Diagnosis Paroxysmal atrial fibrillation Coronary artery disease Hypertension Hyperlipidemia Assessment/Plan Paroxysmal atrial fibrillation, loaded with sotalol, planning for VIANCA and cardioversion today. [id number] score of 4, yearly risk of stroke without oral anticoagulation is 4 percent. Maintained on Eliquis 5 mg twice daily, continue on the same medication Coronary artery disease, history of CABG 4 in 2003 with most recent cardiac catheterization August 25, 2016 revealing severe [place] coronary artery disease with patent bypass grafts including SWEET to LAD, vein graft obtuse marginal, vein graft to the right coronary artery was small vessel disease distally. EF 60 percent. Continue to monitor. No changes recommended at this time. Congestive heart failure, left ventricular systolic dysfunction, EF 35-40%, improved to 60% per echo done Aug 2017. Maintained on beta delaney and Entresto. No congestive heart failure at this time Chest pain, nonspecific etiology, improved. Continue to monitor. Intolerance to isosorbide. Gastritis, esophageal diverticulum per EGD done July 2016. Maintained on protonix, Carafate. Dyspnea on exertion, chronic, slightly worse at this time. COPD/obstructive sleep apnea, noncompliant with her sleep apnea machine Hypertension, controlled, continue to monitor BP/HR. Intolerance to isosorbide secondary to headache. Patient was instructed to discontinue medication. History of sinus bradycardia, currently asymptomatic. Continue to monitor closely Hyperlipidemia, patient due for lipid/CMP Small infrarenal abdominal aortic aneurysm, last CT scan was done in March 2013 measuring the aorta at 3.9 cm, ultrasound of the abdominal aorta reported as focal ectasia in the infrarenal abdominal aorta. Abdominal aortic ultrasound done in January 2016 revealed no evidence of aneurysm. Continue to monitor. Mild bilateral carotid stenosis, last ultrasound was done in August 2016. Continue to monitor. History of pulmonary hypertension, patent foramen ovale, echocardiogram from Aug 2017 revealed PA pressure 60mmHg. Peripheral edema, reporting improvement. Continue to monitor Clinical Quality Measures DVT/VTE Risk/Contraindication: Risk Factor Score Per Nursin RFS Level Per Nursing on Admit: 4+=Very High MOHSEN MORRIS MD Nov 10, 2017 07:29
--- NOTE | 2017-11-10 07:51 | Cardioversion ---
Cardioversion PROCEDURE PHYSICIAN: Mohsen Tinoco DATE OF PROCEDURE: 11/10/17 DIRECT EXTERNAL ELECTRICAL CARDIOVERSION: Indications: Atrial Fibrillation with rapid ventricular rate Preoperative diagnoses: Atrial Fibrillation with rapid ventricular rate Postoperative diagnosis: Sinus rhythm, Successful Electrical Cardioversion Anesthesia: By Anesthesia services Complications: None Specimen: None Contrast: 0 Flouroscopy: none Procedure Details: The patient was brought the yard laborer after informed consent was taken, all the risks and complications were explained including the risk of stroke. Electrical cardioversion was carried out with anesthesia support with propofol. 120 joules of synchronized shock was delivered through external patches which promptly restored sinus rhythm. The patient tolerated the procedure well. Conclusions: Successful electrical cardioversion and termination of atrial fibrillation Final Diagnosis: Paroxysmal atrial fibrillation Hypertension Hyperlipidemia Fatigue MOHSEN TINOCO MD Nov 10, 2017 07:51
[2017-11-10] MEDS ORDERED: LIDOCAINE 2% VISCOUS 15 ML UDC PO NR ×2 (08:00→08:19)
[2017-11-10] MEDS ORDERED: proPOfol 200 MG/20 ML (DIPRIVAN) VIAL IV ONE (08:16)
--- NOTE | 2017-11-10 08:26 | Anesthesia-Procedure Note ---
Procedures/Interventions Procedure Start/Stop/Diagnosis Date of Procedure: Nov 10, 2017 Start Time: 07:35 Referring Physician: azalia tinoco Preprocedural Diagnosis: atrial fibrillation Brief History Called to ICU for scheduled cardioversion. Brief hx obtained from pt and Dr. Tnioco. Propofol given without complications. VSS Stop Time: 07:50 Postprocedural Diagnosis: VIANCA Cardioversion VIANCA/Cardioversion Anesthesia Type: MAC ASA Class: 3 Medications Propofol 130 mg total in increments of 30 mg Monitors and Equipment: BP Cuff - Right RICHARD NAJERA CRNA Nov 10, 2017 08:26
[2017-11-10] MEDS: traZODone 50 MG (DESYREL) TAB PO SCH (09:08)
[2017-11-10] MEDS: APIXABAN 5 MG (ELIQUIS) TABLET PO SCH ×2 (09:09→21:05)
[2017-11-10] MEDS: FUROSEMIDE 20 MG (LASIX) TAB PO SCH (09:09)
[2017-11-10] MEDS: eZETimibe 10 MG (ZETIA) TABLET PO SCH (09:10)
[2017-11-10] MEDS: SOTALOL 80 MG (BETAPACE) TAB PO SCH ×2 (09:10→21:05)
[2017-11-10] MEDS: SACUBITRIL/VALSARTAN 24/26 MG (ENTRESTO) TABLET PO SCH ×2 (09:10→21:04)
[2017-11-10] MEDS: TERAZOSIN 5 MG (HYTRIN) CAPSULE PO SCH (09:16)
[2017-11-10] MEDS: ATORVASTATIN 40 MG (LIPITOR) TABLET PO SCH (21:04)
[2017-11-10] MEDS: ZOLPIDEM 5 MG (AMBIEN) TAB PO SCH (21:04)
[2017-11-10] MEDS: PARoxetine 20 MG (PAXIL) TAB PO SCH (21:05)
[2017-11-11] VITALS: BP 126/72
[2017-11-11 04:00] VITALS: BP 119/68
[2017-11-11] MEDS: CATHETER FLUSH 10 ML SYR IV SCH (06:43)
[2017-11-11 07:29] VITALS: BP 114/77
--- NOTE | 2017-11-11 08:00 | Cardiology Discharge Summary ---
Diagnosis/Chief Complaint Date of Admission Nov 08, 2017 at 07:49 Date of Discharge November 11, 2017 Admission Diagnosis Paroxysmal atrial fibrillation Coronary artery disease Hypertension Hyperlipidemia Discharge Diagnosis Paroxysmal atrial fibrillation Coronary artery disease Hypertension Hyperlipidemia Chief Complaint/HPI Chief Complaint/HPI 72 years old lady with paroxysmal atrial fibrillation, became symptomatic due to atrial fibrillation, decided the management plan and elected to admit her and load her with sotalol and monitor her in addition consideration for cardioversion was made if she didn't convert with the medication alone. She was loaded without any complication, yesterday I proceeded with VIANCA and cardioversion which was successful. Patient feeling better, ready to go home Discharge Summary Hospital Course Hospital Course Paroxysmal atrial fibrillation, loaded with sotalol, planning for VIANCA and cardioversion, EKG showed sinus bradycardia with normal QT interval. Planning for discharge today [id number] score of 4, yearly risk of stroke without oral anticoagulation is 4 percent. Maintained on Eliquis 5 mg twice daily, continue on the same medication Coronary artery disease, history of CABG 4 in 2003 with most recent cardiac catheterization August 25, 2016 revealing severe [place] coronary artery disease with patent bypass grafts including SWEET to LAD, vein graft obtuse marginal, vein graft to the right coronary artery was small vessel disease distally. EF 60 percent. Continue to monitor. No changes recommended at this time. Congestive heart failure, left ventricular systolic dysfunction, EF 35-40%, improved to 60% per echo done Aug 2017. Maintained on beta delaney and Entresto. No congestive heart failure at this time Chest pain, nonspecific etiology, improved. Continue to monitor. Intolerance to isosorbide. Gastritis, esophageal diverticulum per EGD done July 2016. Maintained on protonix, Carafate. Dyspnea on exertion, chronic, slightly worse at this time. COPD/obstructive sleep apnea, noncompliant with her sleep apnea machine Hypertension, controlled, continue to monitor BP/HR. Intolerance to isosorbide secondary to headache. Patient was instructed to discontinue medication. History of sinus bradycardia, currently asymptomatic. Continue to monitor closely Hyperlipidemia, patient due for lipid/CMP Small infrarenal abdominal aortic aneurysm, last CT scan was done in March 2013 measuring the aorta at 3.9 cm, ultrasound of the abdominal aorta reported as focal ectasia in the infrarenal abdominal aorta. Abdominal aortic ultrasound done in January 2016 revealed no evidence of aneurysm. Continue to monitor. Mild bilateral carotid stenosis, last ultrasound was done in August 2016. Continue to monitor. History of pulmonary hypertension, patent foramen ovale, echocardiogram from Aug 2017 revealed PA pressure 60mmHg. Peripheral edema, reporting improvement. Continue to monitor Labs Laboratory Tests 11/08/17 08:20: Red Blood Count 4.31L, Mean Corpuscular Hemoglobin Concent 31L, Red Cell Distribution Width 15.0H, Mean Platelet Volume 11.0H, Prothrombin Time 16.6H, Chloride Level 108H, Total Protein 6.2L Procedures None. Discharge Physical Examination Allergies: Coded Allergies: Iodinated Contrast- Oral and IV Dye (Unverified Allergy, Mild, NAUSEA, 21/02) Pt states it's the IV dye used in heart tests not CT scans penicillin G (Verified Allergy, Unknown, 04/24/07) RASH Vitals & I&Os Vital Signs Date Time Temp Pulse Resp B/P (MAP) Pulse Ox O2 Delivery O2 Flow Rate FiO2 11/11/17 07:29 97.7 52 20 114/77 (89) 97 Room Air 11/10/17 12:57 3.00 General Appearance: Alert, Oriented X3, Cooperative, No Acute Distress HEENT: Atraumatic, PERRLA Respiratory: Clear to Auscultation, Normal Air Movement Cardiovascular: Regular Rate, Normal S1, Normal S2, No Murmurs Abdominal: Normal Bowel Sounds, Soft, No Tenderness, No Hepatosplenomegaly, No Masses Extremities: No Clubbing, No Cyanosis, No Edema, Normal Pulses, No Tenderness/ Swelling Skin: No Rashes, No Breakdown, No Significant Lesion Neuro: Normal Gait, Normal Speech, Strength at 5/5 X4 Ext, Normal Tone, Sensation Intact, Cranial Nerves 3-12 NL, Reflexes 2+ Psych/Mental Status: Mental Status NL, Mood NL Discharge Home Medications Reviewed and agree with Discharge Medication list on patient's Discharge Instruction sheet Instructions to Patient/Family Please see electronic discharge instructions given to patient. Clinical Quality Measures Admission Status Admission Status: Inpatient Order (span 2 midnights) Reason for Inpatient Admission: Patient needed to be monitored on telemetry for 72 hours after loading with sotalol DVT/VTE Risk/Contraindication: Risk Factor Score Per Nursin RFS Level Per Nursing on Admit: 4+=Very High MOHSEN MORRIS MD Nov 11, 2017 08:00
[2017-11-11] MEDS ORDERED: Sotalol Hcl PO (08:01)
[2017-11-11] MEDS: eZETimibe 10 MG (ZETIA) TABLET PO SCH (08:36)
[2017-11-11] MEDS: SOTALOL 80 MG (BETAPACE) TAB PO SCH (08:36)
[2017-11-11] MEDS: SACUBITRIL/VALSARTAN 24/26 MG (ENTRESTO) TABLET PO SCH (08:36)
[2017-11-11] MEDS: TERAZOSIN 5 MG (HYTRIN) CAPSULE PO SCH (08:37)
[2017-11-11] MEDS: PANTOPRAZOLE 20 MG TABLET (PROTONIX) PO SCH (08:37)
[2017-11-11] MEDS: APIXABAN 5 MG (ELIQUIS) TABLET PO SCH (08:37)
[2017-11-11] MEDS: FUROSEMIDE 20 MG (LASIX) TAB PO SCH (08:37)
[2017-11-11] MEDS: KCL 10 MEQ TAB (MICRO K) PO SCH (08:37)
[2017-11-11 08:55] VITALS: BP 114/77
[2017-11-11] MEDS: traZODone 50 MG (DESYREL) TAB PO SCH (08:55)
--- NOTE | 2017-11-11 11:34 | Anesthesia-General Post-Op ---
MAC Patient Condition Mental Status/LOC: Same as Preop Cardiovascular: Satisfactory Nausea/Vomiting: Absent Respiratory: Satisfactory Pain: Controlled Complications: Absent Post Op Complications Complications None Follow Up Care/Instructions Patient Instructions None needed. Anesthesiology Discharge Order Discharge Order Patient is doing well, no complaints, stable vital signs, no apparent adverse anesthesia problems. No complications reported per nursing. ALEXANDRA PRADHAN CRNA Nov 11, 2017 11:34
== END 2017-11-11 08:55 | disposition home or self-care (01) | DRG 309 ==
LOC: ICU 07:49
PROVIDERS: ADMIT Internal Medicine Cardiovascular Disease; ATTEND Internal Medicine Cardiovascular Disease
PROC: 5A2204Z Restoration of Cardiac Rhythm, Single (ICD-10-PCS; principal; 2017-11-10)
DX: I48.0 Paroxysmal atrial fibrillation (principal); I25.10 Atherosclerotic heart disease of native coronary artery without angina pectoris; I10 Essential (primary) hypertension; Q21.1 Atrial septal defect; E78.5 Hyperlipidemia, unspecified; R07.9 Chest pain, unspecified; K29.70 Gastritis, unspecified, without bleeding; K22.5 Diverticulum of esophagus, acquired; J44.9 Chronic obstructive pulmonary disease, unspecified; G47.33 Obstructive sleep apnea (adult) (pediatric); I65.23 Occlusion and stenosis of bilateral carotid arteries; I27.20 Pulmonary hypertension, unspecified; R60.0 Localized edema; I73.9 Peripheral vascular disease, unspecified; Z95.1 Presence of aortocoronary bypass graft; Z91.19 Patient's noncompliance with other medical treatment and regimen; Z86.79 Personal history of other diseases of the circulatory system
CPT/HCPCS: 36415; 80053; 83735; 84443; 85027; 85610; 85730; 93005; 93312; 93320; 93325

== ENCOUNTER 2018-03-09 21:02 | Outpatient (CLI) | payer MEDICARE, OTHER ==
[~2018-03-09 21:02] MED LIST changes: +EZET10TA27 PO; +PARO20TA5 PO; +SACU1TAB7 PO; +Sotalol Hcl PO; +TRAZ-189 PO
== END 2018-03-10 04:45 | disposition home or self-care (01) ==
LOC: SLEEP 21:02
PROVIDERS: ATTEND Otolaryngology Otolaryngology/Facial Plastic Surgery
DX: G47.33 Obstructive sleep apnea (adult) (pediatric) (principal)
CPT/HCPCS: 95811

== ENCOUNTER 2018-03-14 07:43 | Outpatient (RCR) | payer MEDICARE, OTHER ==
[2018-03-23] MEDS ORDERED: HYDR25TA4 PO (07:16)
[2018-03-23] MEDS ORDERED: SOTA80TA PO (07:16)
[2018-04-03] MEDS ORDERED: AMIO200T4 PO (11:44)
== END 2018-03-25 | disposition home or self-care (01) ==
LOC: CARD 07:43
PROVIDERS: ATTEND Physician Assistant
DX: R07.89 Other chest pain (principal); I25.10 Atherosclerotic heart disease of native coronary artery without angina pectoris; I10 Essential (primary) hypertension; E78.2 Mixed hyperlipidemia
CPT/HCPCS: 93225; 93226

== ENCOUNTER 2018-04-01 21:49 | Inpatient (IN) | payer MEDICARE, OTHER ==
[~2018-04-01] VITALS: Ht 170.2 cm; Wt 119.3 kg
[~2018-04-01 21:49] MED LIST changes: +HYDR25TA4 PO; +SOTA80TA PO
[2018-04-01] MEDS ORDERED: ASPIRIN 81 MG CHEW (CHILDREN'S ASA) ONE (21:53)
--- NOTE | 2018-04-01 21:58 | ED Chest Pain ---
General Stated Complaint: CP Source: patient Exam Limitations: no limitations (SHEILA BOLES APRN) History of Present Illness Date Seen by Provider: Apr 01, 2018 Time Seen by Provider: 21:56 Initial Comments To ER per private vehicle from home with reports of shortness of breath, palpitations, left arm "feeling weird" in her neck "feeling weird". She has paroxysmal fibrillation and is on anticoagulation. These symptoms began about 3 hours prior to arrival while sitting down at rest at home. She didn't babysit her grandchildren and states that one of them began to cry which seemed to bring about her own anxiety and she is unable to get herself calm down. She has a history of CABG and a cardiac catheterization 2 days ago here by Dr. Tinoco and was told everything was okay. She denies chest pain or pressure. Timing/Duration: changing over time Severity/Quality: moderate Location: central Radiation: no radiation Activities at Onset: none ASA po THERAPEUTIC RECREATION SPECIALIST: No NTG SL THERAPEUTIC RECREATION SPECIALIST: No Associated Symptoms: No abdominal pain, No back pain; diaphoresis (at home but none currently); No nausea/vomiting; shortness of breath (SHEILA BOLES APRN) Allergies and Home Medications Allergies Coded Allergies: Iodinated Contrast- Oral and IV Dye (Unverified Allergy, Mild, NAUSEA, 21/02) Pt states it's the IV dye used in heart tests not CT scans penicillin G (Verified Allergy, Mild, RASH, 03/23/18) RASH Home Medications Acetaminophen with Codeine 1 Each Tablet, 1 TAB PO Q6H PRN for PAIN-MODERATE, ( Reported) Apixaban 5 Mg Tablet, 5 MG PO BID, (Reported) Atorvastatin Calcium 80 Mg Tablet, 40 MG PO DAILY, (Reported) TAKES 1/2 (80MG) TABLET Cholecalciferol (Vitamin D3) 2,000 Unit Tablet, 2,000 UNIT PO DAILY, (Reported) Ezetimibe 10 Mg Tablet, 10 MG PO DAILY, (Reported) Furosemide 20 Mg Tablet, 20 MG PO DAILY, (Reported) Hydrochlorothiazide 25 Mg Tablet, 25 MG PO DAILY, (Reported) Omeprazole 20 Mg Capsule.dr, 20 MG PO DAILY, (Reported) Paroxetine HCl 20 Mg Tablet, 20 MG PO HS, (Reported) Potassium Chloride 10 Meq Tab.er.prt, 10 MEQ PO DAILY, (Reported) Sacubitril/Valsartan 1 Each Tablet, 1 TAB PO BID, (Reported) Sotalol HCl 80 Mg Tablet, 80 MG PO BID, (Reported) Terazosin HCl 5 Mg Capsule, 5 MG PO DAILY, (Reported) Trazodone HCl 50 Mg Tablet, 50 MG PO DAILY, (Reported) Zolpidem Tartrate 10 Mg Tablet, 10 MG PO HS, (Reported) Patient Home Medication List Home Medication List Reviewed: Yes (SHEILA BOLES APRN) Review of Systems Review of Systems Constitutional: see HPI, diaphoresis EENTM: No Symptoms Reported Respiratory: No Symptoms Reported Cardiovascular: See HPI; Denies Chest Pain, Denies Edema; Irregular Heart Rate , Lightheadedness Gastrointestinal: See HPI; Denies Abdominal Pain Genitourinary: No Symptoms Reported Musculoskeletal: no symptoms reported Skin: no symptoms reported Psychiatric/Neurological: No Symptoms Reported Endocrine: No Symptoms Reported Hematologic/Lymphatic: No Symptoms Reported (SHEILA BOLES APRN) Past Moiudng-[id number]-[id number] Hx Patient Social History Type Used: Cigarettes Former Smoker, Quit: Mar 23, 1991 2nd Hand Smoke Exposure: No Recent Hopitalizations: No (SHEILA BOLES APRN) Immunizations Up To Date Tetanus Booster (TDap): Unknown Date of Pneumonia Vaccine: Mar 23, 2017 Date of Influenza Vaccine: May 26, 2016 (SHEILA BOLES APRN) Seasonal Allergies Seasonal Allergies: No (SHEILA BOLES APRN) Past Medical History Surgeries: Yes (HERNIA REPAIR; EGD; VIANCA/CARDIOVERSION) Eye Surgery, Gallbladder, Orthopedic Respiratory: Yes (sleep apnea no cpap) Sleep Apnea, COPD Currently Using CPAP: No Currently Using BIPAP: No Cardiac: Yes (VIANCA/CARDIOVERSION 04/2017 MOST RECENTLY) Atrial Fibrillation, High Cholesterol, Hypertension Neurological: No Reproductive Disorders: No Female Reproductive Disorders: Denies Sexually Transmitted Disease: No HIV/AIDS: No Genitourinary: Yes (bladder sling ) Gastrointestinal: Yes Abdominal Hernia, Gastroesophageal Reflux, Hiatal Hernia, Irritable Bowel Musculoskeletal: Yes (hx fx left wrist, lower back disc ) Degenerate Disk Disease, Arthritis, Chronic Back Pain Endocrine: No HEENT: Yes (bilateral cataracts removed) Cataract Loss of Vision: Denies Hearing Impairment: Hard of Hearing Cancer: No Psychosocial: Yes Anxiety, Depression Integumentary: Yes (chronic abd folds/under breast rash ) Blood Disorders: No Adverse Reaction/Blood Tranf: No (SHEILA BOLES APRN) Family Medical History Arthritis Cardiovascular disease 19 FATHER 19 MOTHER G8 BROTHER FH: [place] (myocardial infarction) 19 FATHER ( at 67 from [place]) 19 MOTHER ( at 39 from [place]) Hypertension No Pertinent Family Hx (SHEILA BOLES APRN) Physical Exam Vital Signs Capillary Refill : (SHEILA BOLES APRN) Height, Weight, BMI Height: 5'7.00" Weight: 267lbs. 0.0oz. 121.596795gw; 41.8 BMI Method:Stated General Appearance: No Apparent Distress, WD/WN, Anxious, Other (tachypneic on arrival. Breathing rate slows when she is distracted with conversation) HEENT: PERRL/EOMI, TMs Normal Neck: Full Range of Motion, Normal Inspection Respiratory: Normal Breath Sounds, No Accessory Muscle Use, No Respiratory Distress Cardiovascular: Irregularly Irregular, Tachycardia (rate of 105-120. Blood pressure 129/90.) Gastrointestinal: Non Tender, Soft Extremity: Normal Capillary Refill, Normal Inspection, No Pedal Edema Neurologic/Psychiatric: Alert, Oriented x3 Skin: Normal Color, Warm/Dry (SHEILA BOLES APRN) Progress/Results/Core Measures Results/Orders Lab Results Laboratory Tests Test 04/01/18 21:55 04/01/18 23:05 Range/Units White Blood Count 6.5 4.3-11.0 10^3/uL Red Blood Count 4.67 4.35-5.85 10^6/uL Hemoglobin 13.5 11.5-16.0 G/DL Hematocrit 41 35-52 % Mean Corpuscular Volume 87 80-99 FL Mean Corpuscular Hemoglobin 29 25-34 PG Mean Corpuscular Hemoglobin Concent 33 32-36 G/DL Red Cell Distribution Width 14.9 H 10.0-14.5 % Platelet Count 248 130-400 10^3/uL Mean Platelet Volume 10.5 H 7.4-10.4 FL Neutrophils (%) (Auto) 58 42-75 % Lymphocytes (%) (Auto) 26 12-44 % Monocytes (%) (Auto) 13 H 0-12 % Eosinophils (%) (Auto) 2 0-10 % Basophils (%) (Auto) 0 0-10 % Neutrophils # (Auto) 3.8 1.8-7.8 X 10^3 Lymphocytes # (Auto) 1.7 1.0-4.0 X 10^3 Monocytes # (Auto) 0.9 0.0-1.0 X 10^3 Eosinophils # (Auto) 0.1 0.0-0.3 10^3/uL Basophils # (Auto) 0.0 0.0-0.1 10^3/uL Prothrombin Time 15.2 H 12.2-14.7 SEC INR Comment 1.2 0.8-1.4 Activated Partial Thromboplast Time 28 24-35 SEC D-Dimer 0.29 0.00-0.49 UG/ML Sodium Level 140 135-145 MMOL/L Potassium Level 3.3 L 3.6-5.0 MMOL/L Chloride Level 106 98-107 MMOL/L Carbon Dioxide Level 21 21-32 MMOL/L Anion Gap 13 5-14 MMOL/L Blood Urea Nitrogen 10 7-18 MG/DL Creatinine 0.96 0.60-1.30 MG/DL Estimat Glomerular Filtration Rate 57 BUN/Creatinine Ratio 10 Glucose Level 106 H 70-105 MG/DL Calcium Level 9.5 8.5-10.1 MG/DL Corrected Calcium 9.6 8.5-10.1 MG/DL Magnesium Level 1.8 1.8-2.4 MG/DL Total Bilirubin 0.7 0.1-1.0 MG/DL Aspartate Amino Transf (AST/SGOT) 22 5-34 U/L Alanine Aminotransferase (ALT/SGPT) 17 0-55 U/L Alkaline Phosphatase 80 40-136 U/L Myoglobin 79.0 10.0-92.0 NG/ML Troponin I < 0.30 <0.30 NG/ML B-Type Natriuretic Peptide 106.6 H <100.0 PG/ML Total Protein 6.7 6.4-8.2 GM/DL Albumin 3.9 3.2-4.5 GM/DL Urine Color YELLOW Urine Clarity SLIGHTLY CLOUDY Urine pH 8 5-9 Urine Specific [place] 1.015 L 1.016-1.022 Urine Protein NEGATIVE NEGATIVE Urine Glucose (UA) NEGATIVE NEGATIVE Urine Ketones 2+ H NEGATIVE Urine Nitrite NEGATIVE NEGATIVE Urine Bilirubin NEGATIVE NEGATIVE Urine Urobilinogen NORMAL NORMAL MG/DL Urine Leukocyte Esterase 1+ H NEGATIVE Urine RBC (Auto) NEGATIVE NEGATIVE Urine RBC NONE /HPF Urine WBC 2-5 /HPF Urine Squamous Epithelial Cells 5-10 /HPF Urine Crystals NONE /LPF Urine Bacteria FEW H /HPF Urine Casts NONE /LPF Urine Mucus SMALL H /LPF Urine Culture Indicated NO (JOSE POTTER MD) My Orders Orders - JOSE POTTER MD Cbc With Automated Diff (04/01/18 21:54) Magnesium (04/01/18 21:54) Chest 1 View, Ap/Pa Only (04/01/18 21:54) Ekg Tracing (04/01/18 21:54) Cardiac Profile 1 (04/01/18 21:54) Comprehensive Metabolic Panel (04/01/18 21:54) Myoglobin Serum (04/01/18 21:54) Protime With Inr (04/01/18:54) Partial Thromboplastin Time (04/01/18 21:54) O2 (04/01/18 21:54) Monitor-Rhythm Ecg Trace Only (04/01/18 21:54) Lipid Panel (04/02/18 06:00) Aspirin Chewable Tablet (Baby Aspirin Ch (04/01/18 22:00) Saline Lock/Iv-Start (04/01/18 21:54) BNP (04/01/18 21:54) Fibrin Degradation Products (04/01/18 21:54) Lorazepam Injection (Ativan Injection) (04/01/18 22:00) Metoprolol Tartrate Injection (Lopressor (04/01/18 22:00) Aspirin Chewable Tablet (Baby Aspirin Ch (04/01/18 21:53) Ondansetron Injection (Zofran Injectio (04/01/18 22:02) Ns Iv 500 Ml (Sodium Chloride 0.9%) (04/01/18 22:30) Saline Lock/Iv-Start (04/01/18 22:36) Ns Iv 500 Ml (Sodium Chloride 0.9%) (04/01/18 22:36) Ua Culture If Indicated (04/01/18 22:53) Ondansetron Injection (Zofran Injectio (04/01/18 23:00) Saline Lock/Iv-Start (04/01/18 23:29) Ns Iv 500 Ml (Sodium Chloride 0.9%) (04/01/18 23:29) (JOSE POTTER MD) Medications Given in ED Current Medications Medications Dose Ordered Sig/Dominique Route Start Time Stop Time Status Last Admin Dose Admin Aspirin 324 mg ONCE ONCE PO 04/01/18 22:00 04/01/18 22:01 DC 04/01/18 21:58 324 MG Lorazepam 0.5 mg ONCE ONCE IVP 04/01/18 22:00 04/01/18 22:01 DC 04/01/18 22:07 0.5 MG Metoprolol Tartrate 5 mg ONCE ONCE IV 04/01/18 22:00 04/01/18 22:01 DC 04/01/18 22:08 5 MG Ondansetron HCl 4 mg STK-MED ONCE .ROUTE 04/01/18 22:02 04/01/18 22:06 DC 04/01/18 22:08 4 MG (JOSE POTTER MD) Progress Progress Note : Progress Note 2-30: I assumed care of the patient from Sheila Boles APRN. I did see and evaluated the patient and agree with above except as indicated. Patient is here with chest pain and not feeling well. She is found to be in A. fib with a rapid rate of 110-130. She was given Lopressor 5 mg IV and Ativan 0.5 mg IV for the heart rate and pain. Subsequently she had drop in blood pressure to the 70s or 80s. Normal saline 500 mL bolus was given. This did improve how she felt although blood pressure remained low. Patient admits that she did take her nighttime medicines just prior to coming to the ER and this made be a combination of her home meds plus the medicines here. I do suspect that the home meds may need to be adjusted as she has some persistence of her low blood pressure. We have evaluated for infectious sources and are finding none. This seems to be cardiac related and not infectious in nature at this time. I have discussed the case with Dr. Tinoco at 0 and he accepts patient for consult. I discussed the case with Dr. Cee [id number] and she accepts patient for admission. We will repeat fluid bolus per Dr. Tinoco's recommendations and continue to monitor the patient. Providing that her pressure stabilizes, she will be admitted to telemetry unit and he will reevaluate in the morning. Patient and family agree with plan. (JOSE POTTER MD) Departure Communication (Admissions) Time/Spoke to Admitting Phy: 23:15 Time/Spoke to Consulting Phy: 23:10 (JOSE POTTER MD) Impression Primary Impression: Atrial fibrillation Qualified Codes: I48.2 - Chronic atrial fibrillation Additional Impression: Labile blood pressure Disposition: ADMITTED INPATIENT Condition: Stable Admissions Decision to Admit Reason: Admit from ER (General) Decision to Admit/Date: Apr 01, 2018 Time/Decision to Admit Time: 23:15 (JOSE POTTER MD) Departure-Patient Inst. Referrals: BIBIANA KAPADIA MD (PCP/Family) Primary Care Physician SHEILA BOLES APRN Apr 01, 2018 21:58 JOSE POTTER MD Apr 01, 2018 23:51
[2018-04-01] MEDS ORDERED: LORazepam INJ 2 MG/ML (ATIVAN) VIAL IVP ONE (22:00)
[2018-04-01] MEDS ORDERED: ASPIRIN 81 MG CHEW (CHILDREN'S ASA) PO ONE (22:00)
[2018-04-01] MEDS ORDERED: meTOprolol 5 MG/5 ML (LOPRESSOR) VIAL IV ONE (22:00)
[2018-04-01 22:01] LABS: BASOPHILS % (AUTO) 0 % (0-10); EOSINOPHILS # (AUTO) 0.1 10^3/uL (0.0-0.3); EOSINOPHILS % (AUTO) 2 % (0-10); HEMATOCRIT 41 % (35-52); HEMOGLOBIN 13.5 G/DL (11.5-16.0); LYMPHOCYTES # (AUTO) 1.7 X 10^3 (1.0-4.0); LYMPHOCYTES % (AUTO) 26 % (12-44); MEAN CORPUSCULAR HEMOGLOBIN 29 PG (25-34); MEAN CORPUSCULAR HGB CONC 33 G/DL (32-36); MEAN CORPUSCULAR VOLUME 87 FL (80-99); MEAN PLATELET VOLUME 10.5 FL (7.4-10.4); MONOCYTES # (AUTO) 0.9 X 10^3 (0.0-1.0); MONOCYTES % (AUTO) 13 % (0-12); NEUTROPHILS # (AUTO) 3.8 X 10^3 (1.8-7.8); NEUTROPHILS % (AUTO) 58 % (42-75); PLATELET COUNT 248 10^3/uL (130-400); RED BLOOD COUNT 4.67 10^6/uL (4.35-5.85); RED CELL DISTRIBUTION WIDTH 14.9 % (10.0-14.5); WHITE BLOOD COUNT 6.5 10^3/uL (4.3-11.0)
[2018-04-01] MEDS ORDERED: ONDANSETRON 4 MG/2 ML (SDV) Z0FRAN ONE (22:02)
[2018-04-01 22:16] LABS: INR 1.2 (0.8-1.4); PROTHROMBIN TIME PATIENT 15.2 SEC (12.2-14.7)
[2018-04-01 22:24] LABS: ALANINE AMINOTRANSFERASE 17 U/L (0-55); ALBUMIN 3.9 GM/DL (3.2-4.5); ALKALINE PHOSPHATASE 80 U/L (40-136); BILIRUBIN,TOTAL 0.7 MG/DL (0.1-1.0); BUN/CREATININE RATIO 10; CALCIUM 9.5 MG/DL (8.5-10.1); CARBON DIOXIDE 21 MMOL/L (21-32); CHLORIDE 106 MMOL/L (98-107); CREATININE SERUM 0.96 MG/DL (0.60-1.30); GFR ESTIMATED 57; GLUCOSE 106 MG/DL (70-105); MAGNESIUM 1.8 MG/DL (1.8-2.4); POTASSIUM 3.3 MMOL/L (3.6-5.0); SODIUM 140 MMOL/L (135-145); TOTAL PROTEIN 6.7 GM/DL (6.4-8.2)
[2018-04-01] MEDS ORDERED: NS IV 500 ML 500 ML ONE (22:30)
[2018-04-01] MEDS ORDERED: NS IV 500 ML 500 ML IV ONE ×2 (22:36→23:29)
[2018-04-01] MEDS ORDERED: ONDANSETRON 4 MG/2 ML (SDV) Z0FRAN IVP ONE (23:00)
[2018-04-01 23:14] LABS: BILIRUBIN,URINE NEGATIVE (NEGATIVE); CLARITY,URINE SLIGHTLY CLOUDY; COLOR,URINE YELLOW; GLUCOSE, URINE (UA) NEGATIVE (NEGATIVE); KETONES,URINE 2+ (NEGATIVE); LEUKOCYTE ESTERASE ,URINE 1+ (NEGATIVE); NITRITE,URINE NEGATIVE (NEGATIVE); PH,URINE 8 (5-9); PROTEIN,URINE NEGATIVE (NEGATIVE); UROBILINOGEN,URINE NORMAL (NORMAL)
[2018-04-01 23:23] LABS: BACTERIA,URINE FEW /HPF
[2018-04-02] VITALS (32 sets, daily range): BP systolic 88–172; BP diastolic 58–117
[2018-04-02] MEDS ORDERED: NS IV 1000 ML 1,000 ML ONE (01:37)
[2018-04-02] MEDS: NS IV 1000 ML 1,000 ML IV SCH ×2 (03:29→14:03)
[2018-04-02 03:47] LABS: BASOPHILS % (AUTO) 0 % (0-10); EOSINOPHILS # (AUTO) 0.1 10^3/uL (0.0-0.3); EOSINOPHILS % (AUTO) 2 % (0-10); HEMATOCRIT 36 % (35-52); HEMOGLOBIN 11.8 G/DL (11.5-16.0); LYMPHOCYTES # (AUTO) 1.3 X 10^3 (1.0-4.0); LYMPHOCYTES % (AUTO) 19 % (12-44); MEAN CORPUSCULAR HEMOGLOBIN 29 PG (25-34); MEAN CORPUSCULAR HGB CONC 33 G/DL (32-36); MEAN CORPUSCULAR VOLUME 89 FL (80-99); MEAN PLATELET VOLUME 10.8 FL (7.4-10.4); MONOCYTES # (AUTO) 0.7 X 10^3 (0.0-1.0); MONOCYTES % (AUTO) 10 % (0-12); NEUTROPHILS # (AUTO) 4.8 X 10^3 (1.8-7.8); NEUTROPHILS % (AUTO) 69 % (42-75); PLATELET COUNT 217 10^3/uL (130-400); RED BLOOD COUNT 4.06 10^6/uL (4.35-5.85); RED CELL DISTRIBUTION WIDTH 14.9 % (10.0-14.5); WHITE BLOOD COUNT 6.9 10^3/uL (4.3-11.0)
[2018-04-02 04:06] LABS: ALANINE AMINOTRANSFERASE 12 U/L (0-55); ALBUMIN 3.4 GM/DL (3.2-4.5); ALKALINE PHOSPHATASE 68 U/L (40-136); BILIRUBIN,TOTAL 0.4 MG/DL (0.1-1.0); BUN/CREATININE RATIO 11; CALCIUM 8.6 MG/DL (8.5-10.1); CARBON DIOXIDE 23 MMOL/L (21-32); CHLORIDE 109 MMOL/L (98-107); CREATININE SERUM 0.82 MG/DL (0.60-1.30); GFR ESTIMATED > 60; GLUCOSE 113 MG/DL (70-105); POTASSIUM 3.6 MMOL/L (3.6-5.0); SODIUM 141 MMOL/L (135-145)
[2018-04-02 04:23] LABS: CHOLESTEROL 212 MG/DL (< 200); HDL CHOLESTEROL 43 MG/DL (40-60); TRIGLYCERIDES 102 MG/DL (<150); VLDL CHOLESTEROL 20 MG/DL (5-40)
--- NOTE | 2018-04-02 07:26 | Diagnostic Imaging Report ---
INDICATION: Chest pain COMPARISON: 03/23/2018 FINDINGS: Single view of the chest demonstrate cardiac enlargement with mild central vascular congestion. There is no pneumothorax, effusion or focal infiltrate. Sternal wires midline. Osseous structures are age-appropriate. IMPRESSION: Cardiac enlargement with central vascular congestion Dictated by: Dictated on workstation # [id number]
[2018-04-02] MEDS ORDERED: AMIODARONE FOR BOLUS 150 MG in D5W 100 ML IVPB 100 ML IV ONE (07:30)
--- NOTE | 2018-04-02 07:34 | Consultation-Cardiology ---
HPI-Cardiology Cardiology Consultation Date of Consultation 04/02/18 Date of Admission Time Seen by Provider: 07:26 Indication: Atrial fibrillation HPI 72 years old lady with history of coronary artery disease, paroxysmal atrial fibrillation, was in her usual state of health until yesterday when she started having palpitation and fatigue and loss of energy, came into the emergency room and noted to be hypotensive. She denied any chest pain. No syncope but felt tired and did not feel well. Denied any fever or chills. No cough or sputum. Overnight she stayed in atrial fibrillation and she stayed borderline hypotensive. Patient has been having difficulties tolerating sotalol due to borderline hypotension and fatigue and loss of energy, I Have decreased her sotalol to 40 mg twice daily and it appear that she is back in atrial fibrillation with borderline heart rate. I discussed with her the management plan recommended trying different antiarrhythmic medication, I'll try to load her with amiodarone and planning for VIANCA and electrical cardioversion tomorrow Home Medications & Allergies Allergies: Coded Allergies: Iodinated Contrast- Oral and IV Dye (Unverified Allergy, Mild, NAUSEA, 21/02) Pt states it's the IV dye used in heart tests not CT scans penicillin G (Verified Allergy, Mild, RASH, 03/23/18) RASH Home Medication List Reviewed: Yes AEV-Hjexgv-Cwvdgf Hx Patient Social History Alcohol Use: Denies Use Recreational Drug Use: No Former smoker/When Quit: Sep 07, 1990 Type Used: Cigarettes 2nd Hand Smoke Exposure: No Recent Foreign Travel: No Recent Infectious Disease Expo: No Recent Hopitalizations: No Physical Abuse Screen: No Sexual Abuse: No Immunizations Up To Date Tetanus Booster (TDap): Unknown Date of Pneumonia Vaccine: Mar 23, 2017 Date of Influenza Vaccine: May 26, 2016 Past Medical History Past medical history as described below Family Medical History Significant Family History: No Pertinent Family Hx Family History: Arthritis Cardiovascular disease 19 FATHER 19 MOTHER G8 BROTHER FH: [place] (myocardial infarction) 19 FATHER ( at 67 from [place]) 19 MOTHER ( at 39 from [place]) Hypertension Review of Systems Constitutional: see HPI, dizziness, malaise, weakness EENTM: see HPI, no symptoms reported Respiratory: see HPI; No cough; dyspnea on exertion; No hemoptysis, No orthopnea, No phlegm, No short of breath, No stridor, No wheezing, No other Cardiovascular: see HPI, chest pain; No edema, No Hx of Intervention, No palpitations, No syncope, No vascular heart diseas, No other Gastrointestinal: no symptoms reported, see HPI Genitourinary: no symptoms reported, see HPI Musculoskeletal: no symptoms reported, see HPI Skin: no symptoms reported, see HPI Psychiatric/Neurological: No Symptoms Reported, See HPI Reviewed Test Results Reviewed Test Results Lab Laboratory Tests Test 04/01/18 21:55 04/01/18 23:05 04/02/18 03:06 Range/Units White Blood Count 6.5 6.9 4.3-11.0 10^3/uL Red Blood Count 4.67 4.06 L 4.35-5.85 10^6/uL Hemoglobin 13.5 11.8 11.5-16.0 G/DL Hematocrit 41 36 35-52 % Mean Corpuscular Volume 87 89 80-99 FL Mean Corpuscular Hemoglobin 29 29 25-34 PG Mean Corpuscular Hemoglobin Concent 33 33 32-36 G/DL Red Cell Distribution Width 14.9 H 14.9 H 10.0-14.5 % Platelet Count 248 217 130-400 10^3/uL Mean Platelet Volume 10.5 H 10.8 H 7.4-10.4 FL Neutrophils (%) (Auto) 58 69 42-75 % Lymphocytes (%) (Auto) 26 19 12-44 % Monocytes (%) (Auto) 13 H 10 0-12 % Eosinophils (%) (Auto) 2 2 0-10 % Basophils (%) (Auto) 0 0 0-10 % Neutrophils # (Auto) 3.8 4.8 1.8-7.8 X 10^3 Lymphocytes # (Auto) 1.7 1.3 1.0-4.0 X 10^3 Monocytes # (Auto) 0.9 0.7 0.0-1.0 X 10^3 Eosinophils # (Auto) 0.1 0.1 0.0-0.3 10^3/uL Basophils # (Auto) 0.0 0.0 0.0-0.1 10^3/uL Prothrombin Time 15.2 H 12.2-14.7 SEC INR Comment 1.2 0.8-1.4 Activated Partial Thromboplast Time 28 24-35 SEC D-Dimer 0.29 0.00-0.49 UG/ML Sodium Level 140 141 135-145 MMOL/L Potassium Level 3.3 L 3.6 3.6-5.0 MMOL/L Chloride Level 106 109 H 98-107 MMOL/L Carbon Dioxide Level 21 23 21-32 MMOL/L Anion Gap 13 9 5-14 MMOL/L Blood Urea Nitrogen 10 9 7-18 MG/DL Creatinine 0.96 0.82 0.60-1.30 MG/DL Estimat Glomerular Filtration Rate 57 > 60 BUN/Creatinine Ratio 10 11 Glucose Level 106 H 113 H 70-105 MG/DL Calcium Level 9.5 8.6 8.5-10.1 MG/DL Corrected Calcium 9.6 9.1 8.5-10.1 MG/DL Magnesium Level 1.8 1.8-2.4 MG/DL Total Bilirubin 0.7 0.4 0.1-1.0 MG/DL Aspartate Amino Transf (AST/SGOT) 22 22 5-34 U/L Alanine Aminotransferase (ALT/SGPT) 17 12 0-55 U/L Alkaline Phosphatase 80 68 40-136 U/L Myoglobin 79.0 10.0-92.0 NG/ML Troponin I < 0.30 <0.30 NG/ML B-Type Natriuretic Peptide 106.6 H <100.0 PG/ML Total Protein 6.7 6.0 L 6.4-8.2 GM/DL Albumin 3.9 3.4 3.2-4.5 GM/DL Urine Color YELLOW Urine Clarity SLIGHTLY CLOUDY Urine pH 8 5-9 Urine Specific [place] 1.015 L 1.016-1.022 Urine Protein NEGATIVE NEGATIVE Urine Glucose (UA) NEGATIVE NEGATIVE Urine Ketones 2+ H NEGATIVE Urine Nitrite NEGATIVE NEGATIVE Urine Bilirubin NEGATIVE NEGATIVE Urine Urobilinogen NORMAL NORMAL MG/DL Urine Leukocyte Esterase 1+ H NEGATIVE Urine RBC (Auto) NEGATIVE NEGATIVE Urine RBC NONE /HPF Urine WBC 2-5 /HPF Urine Squamous Epithelial Cells 5-10 /HPF Urine Crystals NONE /LPF Urine Bacteria FEW H /HPF Urine Casts NONE /LPF Urine Mucus SMALL H /LPF Urine Culture Indicated NO Triglycerides Level 102 <150 MG/DL Cholesterol Level 212 H < 200 MG/DL LDL Cholesterol Direct 152 H 1-129 MG/DL VLDL Cholesterol 20 5-40 MG/DL HDL Cholesterol 43 40-60 MG/DL Physical Exam Vital Signs Vital Signs - First Documented 04/01/18 04/01/18 21:50 22:20 Temp 97.8 Pulse 105 Resp 30 B/P (MAP) 129/98 (108) Pulse Ox 99 O2 Delivery Room Air O2 Flow Rate 2.00 FiO2 89 Capillary Refill : Less Than 3 Seconds Height, Weight, BMI Height: 5'7.00" Weight: 263lbs. 0.0oz. 119.798462tf; 41.2 BMI Method:Estimated General Appearance: WD/WN, Mild Distress Eyes: Bilateral Eye Normal Inspection, Bilateral Eye PERRL, Bilateral Eye EOMI HEENT: PERRL/EOMI, TMs Normal, Normal ENT Inspection, Pharynx Normal Neck: Full Range of Motion, Normal Inspection, Non Tender, Supple, Carotid Bruit Respiratory: Chest Non Tender, Lungs Clear, Normal Breath Sounds, No Accessory Muscle Use, No Respiratory Distress Cardiovascular: No Edema, No Gallop, No JVD, Normal Peripheral Pulses, Systolic Murmur, Irregularly Irregular Gastrointestinal: Normal Bowel Sounds, No Organomegaly, No Pulsatile Mass, Non Tender, Soft Back: Normal Inspection, No CVA Tenderness, No Vertebral Tenderness Extremity: Normal Capillary Refill, Normal Inspection, Normal Range of Motion, Non Tender, No Calf Tenderness, No Pedal Edema Neurologic/Psychiatric: Alert, Oriented x3, No Motor/Sensory Deficits, Normal Mood/Affect Skin: Normal Color, Warm/Dry Lymphatic: No Adenopathy A/P-Cardiology Admission Diagnosis Generalized fatigue and loss of energy Chronic atrial fibrillation Hypotension Coronary artery disease Assessment/Plan Generalized fatigue and loss of energy due to hypotension. Patient is receiving IV fluids, I will discontinue Sotalol and Entresto and continue with IVF Hypotension, secondary to medication and hypovolemia, receiving IV fluid. Planning to switch her medication, I'm starting amiodarone and continue on Eliquis Paroxysmal atrial fibrillation, did not tolerate sotalol due to hypotension and fatigue and loss of energy. I decrease the dose 2 weeks ago to 40 mg twice daily without success. I will try amiodarone and planning to repeat VIANCA and cardioversion tomorrow if she did not convert on her own [id number] score of 4, yearly risk of stroke without oral anticoagulation is 4 percent. Maintained on Eliquis 5 mg twice daily, restart medication and monitor Chest pain, nonspecific etiology, describing chest pressure with exertion relieved by rest, cardiac catheterization was carried out showing small vessel disease. Coronary artery disease, history of CABG 4 in 2003 with most recent cardiac catheterization August 25, 2016 revealing severe [place] coronary artery disease with patent bypass grafts including SWEET to LAD, vein graft obtuse marginal, vein graft to the right coronary artery with small vessel disease distally. Repeat cardiac catheterization was done last week showing no significant change from her baseline, medical therapy is recommended Congestive heart failure, left ventricular systolic dysfunction, EF 35-40%, improved to 60% per echo done Aug 2017. Unable to tolerate beta blockers, LYLE inhibitor and/or ARB due to hypotension. I am starting amiodarone and we'll monitor her tolerance and response Gastritis, esophageal diverticulum per EGD done July 2016. Maintained on Protonix, Carafate. Dyspnea on exertion, chronic, patient reports baseline dyspnea, no changes. Continue to monitor. Hypertension, currently hypotensive. Receiving IV fluid. Continue to monitor Intolerance to isosorbide secondary to headache. History of sinus bradycardia, currently in atrial fibrillations Hyperlipidemia, continue to monitor. Small infrarenal abdominal aortic aneurysm, last CT scan was done in March 2013 measuring the aorta at 3.9 cm, ultrasound of the abdominal aorta reported as focal ectasia in the infrarenal abdominal aorta. Abdominal aortic ultrasound done in January 2016 revealed no evidence of aneurysm. Continue to monitor. Mild bilateral carotid stenosis, last ultrasound was done October 2017, continue to monitor. History of pulmonary hypertension, patent foramen ovale, echocardiogram from Aug 2017 revealed PA pressure 60mmHg. Peripheral edema, reporting improvement. Continue to monitor Obstructive sleep apnea-diagnosed over a year ago. Recently underwent repeat sleep study, patient reports currently she is having difficulty finding a mask that we'll fit her. Managed by Dr. Quinteros Clinical Quality Measures AMI/AHF: ASA po Prior to arrival: No DVT/VTE Risk/Contraindication: Risk Factor Score Per Nursin RFS Level Per Nursing on Admit: 2=Moderate MOHSEN MORRIS MD Apr 02, 2018 07:34
[2018-04-02] MEDS: AMIODARONE INJECTION 450 MG in D5W IV SOLUTION (EXCEL) 250 ML IV SCH ×2 (08:58→16:40)
[2018-04-02] MEDS: APIXABAN 5 MG (ELIQUIS) TABLET PO SCH ×2 (08:59→22:42)
--- NOTE | 2018-04-02 12:05 | History & Physical-Hospitalist ---
TYLOR NARAYANAN MEDICAL STUDENT 04/02/18 1205: History of Present Illness HPI/Chief Complaint 73 year old female with history of paroxysmal afib on anticoagulation, CAD s/p triple bypass, CHF, COPD, admitted after presenting to ED in afib. Pt has had problems with afib the past year and follows with Dr. Tinoco. Has had atrial thrombus treated at and, per pt, previous VIANCA with cardioversion earlier this year. This initially helped rhythm disturbance, but she states that she has been in afib frequently of late, frequently coming out of afib at home by calming herself down. This time, pt was watching two grandchildren and she had anxiety when one started to cry, which she states put her in afib. She developed shortness of breath, palpitations, neck and shoulder pain, left arm and leg numbness, and nausea. She denies chest pain or pressure. She then took her Entresto, Sotalol and Eliquis, and drove to ED 3 hours after symptoms began[address] Dr. Spring is her PCP and Dr. Tinoco is the only subspecialist she sees. Date Seen 04/02/18 Time Seen by Provider: 11:40 Attending Physician Erum Gonsales DO PCP Scarlett Spring MD Referring Physician Date of Admission Apr 02, 2018 at 10:53 Home Medications & Allergies Home Medications Reviewed patient Home Medication Reconciliation performed by pharmacy medication reconciliations clinical technician and/or nursing. Patients Allergies have been reviewed. 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) Alcohol Use: Denies Use Recreational Drug Use: No Smoking Status: Former Smoker Former Smoker, Quit: Mar 23, 1991 Type Used: Cigarettes 2nd Hand Smoke Exposure: No Physical Abuse Screen: No Sexual Abuse: No Recent Foreign Travel: No Contact w/other who traveled: No Recent Hopitalizations: No Recent Infectious Disease Expo: No Immunizations Up To Date Tetanus Booster (TDap): Unknown Date of Pneumonia Vaccine: Mar 23, 2017 Date of Influenza Vaccine: May 26, 2016 Seasonal Allergies Seasonal Allergies: No Past Medical History Surgeries: Bladder Surgery (Bladder sling), CABG, Eye Surgery, Gallbladder, Orthopedic Respiratory: Chronic Bronchitis (Triple bypass in 2003), COPD Currently Using CPAP: No Currently Using BIPAP: No Cardiac: Atrial Fibrillation, High Cholesterol, Hypertension Reproductive: No Sexually Transmitted Disease: No HIV/AIDS: No Female Reproductive Disorders: Denies Gastrointestinal: Abdominal Hernia, Gastroesophageal Reflux, Hiatal Hernia, Irritable Bowel Musculoskeletal: Degenerate Disk Disease, Arthritis, Chronic Back Pain HEENT: Cataract Loss of Vision: Denies Hearing Impairment: Hard of Hearing Psychosocial: Anxiety, Depression History of Blood Disorders: No Adverse Reaction to Blood Sandhu: No Family History Arthritis Cardiovascular disease 19 FATHER 19 MOTHER G8 BROTHER FH: [place] (myocardial infarction) 19 FATHER ( at 67 from [place]) 19 MOTHER ( at 39 from [place]) Hypertension No Pertinent Family Hx Review of Systems Constitutional: weight loss (7 lbs over past two weeks) EENTM: no symptoms reported Respiratory: cough Cardiovascular: see HPI Gastrointestinal: diarrhea Genitourinary: no symptoms reported Musculoskeletal: no symptoms reported Skin: no symptoms reported Psychiatric/Neurological: Anxiety Physical Exam Physical Exam Vital Signs Vital Signs - First Documented 04/01/18 04/01/18 21:50 22:20 Temp 97.8 Pulse 105 Resp 30 B/P (MAP) 129/98 (108) Pulse Ox 99 O2 Delivery Room Air O2 Flow Rate 2.00 FiO2 89 Capillary Refill : Less Than 3 Seconds Height, Weight, BMI Height: 5'7.00" Weight: 263lbs. 0.0oz. 119.803334de; 41.2 BMI Method:Estimated General Appearance: No Apparent Distress, WD/WN HEENT: Pharynx Normal, Moist Mucous Membranes Respiratory: Chest Non Tender, Lungs Clear, Normal Breath Sounds, No Accessory Muscle Use, No Respiratory Distress Cardiovascular: No JVD, No Murmur, Irregularly Irregular Gastrointestinal: Normal Bowel Sounds, Non Tender, Soft Extremity: No Pedal Edema Neurologic/Psychiatric: Alert, Oriented x3, No Motor/Sensory Deficits Skin: Normal Color, Warm/Dry Lymphatic: Other (Bilateral cervical adenopathy) Results Results/Procedures Labs Laboratory Tests 04/01/18 21:55 04/02/18 03:06 Patient resulted labs reviewed. Assessment/Plan Admission Diagnosis Afib with RVR Admission Status: Inpatient Order (span 2 midnights) Assessment and Plan 73 year old female with history of paroxysmal afib on anticoagulation, CAD s/p triple bypass, CHF, COPD, admitted after presenting to ED in afib now clinically stable on amiodarone drip. Atrial fibrillation -Cardiology consulted. Will follow recommendations on medication regimen and cardioversion -Plan for VIANCA in AM with cardioversion -On Eliquis for anticoagulation CHF -Hypotensive in ED, resolved. 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 Clinical Quality Measures AMI/AHF: ASA po Prior to arrival: No DVT/VTE Risk/Contraindication: Risk Factor Score Per Nursin RFS Level Per Nursing on Admit: 2=Moderate ERUM GONSALES DO 04/02/18 1505: History of Present Illness HPI/Chief Complaint Patient presented to the ER w/fatigue and palpitations and was found to have AF with dyspnea. Patient was admitted to hospital and placed on Amiodarone drip and will have VIANCA to check for atrial thrombus and then cardioversion if no thrombus identified. Patient feels much better overall. Denies pain. Dyspnea is improved but she still feels like she has the AF although lower rate. 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 Past Medical History Surgeries: Bladder Surgery (Bladder sling), CABG, Eye Surgery, Gallbladder, Orthopedic Respiratory: Chronic Bronchitis (Triple bypass in 2003), COPD Cardiac: Atrial Fibrillation, Coronary Artery Disease, High Cholesterol, Hypertension Gastrointestinal: Abdominal Hernia, Gastroesophageal Reflux, Hiatal Hernia, Irritable Bowel Musculoskeletal: Degenerate Disk Disease, Arthritis, Chronic Back Pain HEENT: Cataract Hearing Impairment: Hard of Hearing Psychosocial: Anxiety, Depression Family History Arthritis Cardiovascular disease 19 FATHER 19 MOTHER G8 BROTHER FH: [place] (myocardial infarction) 19 FATHER ( at 67 from [place]) 19 MOTHER ( at 39 from [place]) Hypertension CAD Over 55 Years Old Review of Systems Constitutional: see HPI, dizziness, malaise, weakness EENTM: no symptoms reported Respiratory: dyspnea on exertion Cardiovascular: see HPI, palpitations Gastrointestinal: diarrhea, loss of appetite, nausea Genitourinary: no symptoms reported Musculoskeletal: no symptoms reported Skin: no symptoms reported Psychiatric/Neurological: Anxiety All Other Systems Reviewed Negative Unless Noted: Yes Physical Exam Physical Exam General Appearance: No Apparent Distress, WD/WN, Chronically ill, Obese Eyes: Bilateral Eye Normal Inspection, Bilateral Eye PERRL HEENT: PERRL/EOMI, TMs Normal, Normal ENT Inspection, Pharynx Normal Neck: Full Range of Motion, Normal Inspection, Non Tender, Supple, Carotid Bruit Respiratory: Chest Non Tender, Lungs Clear, Normal Breath Sounds, No Accessory Muscle Use, No Respiratory Distress Cardiovascular: No Edema, No Gallop, No JVD, No Murmur, Normal Peripheral Pulses, Irregularly Irregular Gastrointestinal: Normal Bowel Sounds, No Organomegaly, No Pulsatile Mass, Non Tender, Soft Back: Normal Inspection, No CVA Tenderness, No Vertebral Tenderness Extremity: Normal Capillary Refill, Normal Inspection, Normal Range of Motion, Non Tender, No Calf Tenderness, No Pedal Edema Neurologic/Psychiatric: Alert, Oriented x3, No Motor/Sensory Deficits, Normal Mood/Affect Skin: Normal Color, Warm/Dry Lymphatic: No Adenopathy Assessment/Plan Admission Diagnosis AF w/RVR CAD previous bypass Dyspnea Admission Status: Inpatient Order (span 2 midnights) Reason for Inpatient Admission: AF w/RVR and VIANCA planned for cardioversion tomorrow will require more than 2 midnights Assessment and Plan Amiodarone drip VIANCA with cardioversion tomorrow Appreciate Dr Tinoco consultation Diagnosis/Problems Diagnosis/Problems (1) Atrial fibrillation Status: Acute Qualifiers: Atrial fibrillation type: chronic Qualified Codes: I48.2 - Chronic atrial fibrillation (2) Insomnia Status: Chronic Qualifiers: Insomnia type: primary Qualified Codes: F51.01 - Primary insomnia (3) Depression Status: Chronic Qualifiers: Depression Type: unspecified Qualified Codes: F32.9 - Major depressive disorder, single episode, unspecified (4) Anxiety Status: Chronic (5) Hyperlipidemia Status: Chronic Qualifiers: Hyperlipidemia type: mixed hyperlipidemia Qualified Codes: E78.2 - Mixed hyperlipidemia (6) Obesity Status: Chronic Qualifiers: Obesity type: due to excess calories Obesity classification: adult class 3 (BMI >= 40) Serious obesity comorbidity presence: with serious comorbidity Body mass index: BMI 40.0-44.9 Qualified Codes: E66.01 - Morbid (severe) obesity due to excess calories; Z68.41 - Body mass index (BMI) 40.0-44.9, adult (7) Labile blood pressure Status: Chronic (8) SOB (shortness of breath) Status: Acute (9) S/P CABG (coronary artery bypass graft) Status: Chronic TYLOR NARAYANAN MEDICAL STUDENT Apr 02, 2018 12:05 ERUM GONSALES DO Apr 02, 2018 15:05
[2018-04-02] MEDS ORDERED: APAP 300 MG/CODEINE 30 MG (TYLENOL #3) TAB PO PRN (15:15)
[2018-04-02] MEDS ORDERED: NON-FORMULARY MEDICATION 1 EA EA (Sacubitril/Valsartan (Entresto 49 mg-51 mg Tablet) 1 TAB PO SCH (21:00)
[2018-04-02] MEDS ORDERED: APIXABAN 5 MG (ELIQUIS) TABLET PO SCH (21:00)
[2018-04-02] MEDS ORDERED: ZOLPIDEM 5 MG (AMBIEN) TAB PO SCH (21:00)
[2018-04-02] MEDS ORDERED: PARoxetine 20 MG (PAXIL) TAB PO SCH (21:00)
[2018-04-02] MEDS ORDERED: eZETimibe 10 MG (ZETIA) TABLET PO SCH (21:00)
[2018-04-03] VITALS (23 sets, daily range): BP systolic 106–166; BP diastolic 59–114
[2018-04-03 03:17] LABS: HEMOGLOBIN 11.9 G/DL (11.5-16.0); MEAN PLATELET VOLUME 10.7 FL (7.4-10.4); RED BLOOD COUNT 4.13 10^6/uL (4.35-5.85); WHITE BLOOD COUNT 5.6 10^3/uL (4.3-11.0)
[2018-04-03] MEDS: NS IV 1000 ML 1,000 ML IV SCH (03:31)
[2018-04-03 03:43] LABS: ALANINE AMINOTRANSFERASE 15 U/L (0-55); ALBUMIN 3.2 GM/DL (3.2-4.5); ALKALINE PHOSPHATASE 61 U/L (40-136); BILIRUBIN,TOTAL 0.4 MG/DL (0.1-1.0); BUN/CREATININE RATIO 11; CALCIUM 8.4 MG/DL (8.5-10.1); CARBON DIOXIDE 23 MMOL/L (21-32); CHLORIDE 110 MMOL/L (98-107); GFR ESTIMATED > 60; GLUCOSE 104 MG/DL (70-105); POTASSIUM 3.7 MMOL/L (3.6-5.0); SODIUM 141 MMOL/L (135-145); TOTAL PROTEIN 5.3 GM/DL (6.4-8.2)
[2018-04-03] MEDS ORDERED: KCL 10 MEQ TAB (MICRO K) PO SCH (07:00)
--- NOTE | 2018-04-03 08:33 | Cardiology Progress Note ---
Subjective Date Seen by Provider: Apr 03, 2018 Time Seen by Provider: 08:31 Subjective/Events-last exam Patient is laying down in bed, comfortable, no new complaint. Review of Systems General: No Chills, No Night Sweats; Fatigue, Malaise; No Appetite, No Other HEENT: No Head Aches, No Visual Changes, No Eye Pain, No Ear Pain, No Dysphasia , No Sinus Congestion, No Post Nasal Drip, No Sore Throat, No Other Pulmonary: No Dyspnea, No Cough, No Pleuritic Chest Pain, No Other Cardiovascular: No: Chest Pain, Palpitations, Orthopnea, Paroxysmal Noc. Dyspnea, Edema, Lt Headedness, Other Objective-Cardiology Exam Last Set of Vital Signs Vital Signs 04/01/18 04/02/18 04/03/18 04/03/18 04/03/18 04/03/18 22:20 04:00 06:00 07:00 08:00 08:29 Temp 97.7 Pulse 67 Resp 18 B/P (MAP) 128/85 (99) Pulse Ox 97 O2 Delivery Room Air O2 Flow Rate 2.00 FiO2 89 Capillary Refill : Less Than 3 Seconds I&O Intake and Output 04/03/18 00:00 Intake Total 400 ml Balance 400 ml Intake Oral 400 ml # Voids 5 Daily Weight Change No General: Alert, Oriented X3, Cooperative HEENT: Atraumatic, PERRLA Neck: Supple, No JVD, No Thyromegaly Lungs: Clear to Auscultation, Normal Air Movement Heart: Normal S1, Normal S2, No Murmurs, Other (Atrial fibrillation, controlled rate) Abdomen: Normal Bowel Sounds, Soft, No Tenderness, No Hepatosplenomegaly, No Masses Extremities: No Clubbing, No Cyanosis, No Edema, Normal Pulses, No Tenderness/ Swelling Skin: No Rashes, No Breakdown, No Significant Lesion Neuro: Normal Gait, Normal Speech, Strength at 5/5 X4 Ext, Normal Tone, Sensation Intact Psych/Mental Status: Mental Status NL, Mood NL Results Lab Laboratory Tests 04/03/18 02:45 A/P-Cardiology Admission Diagnosis Generalized fatigue and loss of energy Chronic atrial fibrillation Hypotension Coronary artery disease Assessment/Plan Generalized fatigue and loss of energy due to hypotension. Blood pressure is better. Continue to monitor Hypotension, secondary to medication and hypovolemia, blood pressure is better at this time. Cannot tolerate the current medication, continue to monitor at this time Paroxysmal atrial fibrillation, could not tolerate sotalol with fatigue and hypotension. Tolerating amiodarone loading dose, planning for cardioversion today. [id number] score of 4, yearly risk of stroke without oral anticoagulation is 4 percent. Maintained on Eliquis 5 mg twice daily, restart medication and monitor Chest pain, nonspecific etiology, describing chest pressure with exertion relieved by rest, cardiac catheterization was carried out showing small vessel disease. Coronary artery disease, history of CABG 4 in 2003 with most recent cardiac catheterization August 25, 2016 revealing severe lumbee coronary artery disease with patent bypass grafts including SWEET to LAD, vein graft obtuse marginal, vein graft to the right coronary artery with small vessel disease distally. Repeat cardiac catheterization was done last week showing no significant change from her baseline, medical therapy is recommended Congestive heart failure, left ventricular systolic dysfunction, EF 35-40%, improved to 60% per echo done Aug 2017. Unable to tolerate beta blockers, LYLE inhibitor and/or ARB due to hypotension. I am starting amiodarone and we'll monitor her tolerance and response Gastritis, esophageal diverticulum per EGD done July 2016. Maintained on Protonix, Carafate. Dyspnea on exertion, chronic, patient reports baseline dyspnea, no changes. Continue to monitor. Hypertension, currently hypotensive. Receiving IV fluid. Continue to monitor Intolerance to isosorbide secondary to headache. History of sinus bradycardia, currently in atrial fibrillations Hyperlipidemia, continue to monitor. Small infrarenal abdominal aortic aneurysm, last CT scan was done in March 2013 measuring the aorta at 3.9 cm, ultrasound of the abdominal aorta reported as focal ectasia in the infrarenal abdominal aorta. Abdominal aortic ultrasound done in January 2016 revealed no evidence of aneurysm. Continue to monitor. Mild bilateral carotid stenosis, last ultrasound was done October 2017, continue to monitor. History of pulmonary hypertension, patent foramen ovale, echocardiogram from Aug 2017 revealed PA pressure 60mmHg. Peripheral edema, reporting improvement. Continue to monitor Obstructive sleep apnea-diagnosed over a year ago. Recently underwent repeat sleep study, patient reports currently she is having difficulty finding a mask that we'll fit her. Managed by Dr. Quinteros Clinical Quality Measures AMI/AHF: ASA po Prior to arrival: No DVT/VTE Risk/Contraindication: Risk Factor Score Per Nursin RFS Level Per Nursing on Admit: 2=Moderate MOHSEN MORRIS MD Apr 03, 2018 08:33
--- NOTE | 2018-04-03 08:34 | Cardiac Procedure Note-CS/ASA ---
Pre-Procedure Note Pre-Op Procedure Note H&P Reviewed The H&P was reviewed, patient examined and no changes noted. Date H&P Reviewed: Apr 03, 2018 Time H&P Reviewed: 08:34 Conscious Sedation Pre-Proced Time Reviewed: 08:34 ASA Class: 3 Airway Mallampati Classification: ([place] appropriate class) I. II. III, IV Lungs Heart ASA score ASA 1: a normal healthy patient ASA 2: a patient with a mild systemic disease (mid diabetes, controlled hypertension, obesity x ASA 3: a patient with a severe systemic disease that limits activity (angina , COPD, prior Myocardial infarction) ASA 4: a patient with an incapacitating disease that is a constant threat to life (CHF, renal failure) ASA 5: a moribund patient not expected to survive 24 hrs. (ruptured aneurysm) ASA 6: a declared brain patient whose organs are being harvested. For emergent operations, add the letter E after the classification Grade 3 Sedation Plan: Analgesia, Amnesia, Plan communicated to team members, Discussed options with patient/fam, Discussed risks with patient/fam Note The patient is an appropriate candidate to undergo the planned procedure, sedation, and anesthesia. The patient immediately re-assessed prior to indication. MOHSEN MORRIS MD Apr 03, 2018 08:34
[2018-04-03] MEDS ORDERED: MIDAZOLAM 2 MG/2 ML (VERSED) VIAL ONE (08:52)
[2018-04-03] MEDS ORDERED: LIDOCAINE 2% VISCOUS 15 ML UDC ONE (08:57)
[2018-04-03] MEDS ORDERED: traZODone 50 MG (DESYREL) TAB PO SCH (09:00)
[2018-04-03] MEDS ORDERED: FUROSEMIDE 20 MG (LASIX) TAB PO SCH (09:00)
[2018-04-03] MEDS ORDERED: TERAZOSIN 5 MG (HYTRIN) CAPSULE PO SCH (09:00)
[2018-04-03] MEDS ORDERED: PANTOPRAZOLE 20 MG TABLET (PROTONIX) PO SCH (09:00)
[2018-04-03] MEDS ORDERED: VITAMIN D3 1,000 UNITS (CHOLECALCIFEROL) TABLET PO SCH (09:00)
[2018-04-03] MEDS ORDERED: HYDROCHLOROTHIAZIDE 25 MG (HCTZ) TAB PO SCH (09:00)
[2018-04-03] MEDS ORDERED: LIDOCAINE 2% VISCOUS 15 ML UDC PO ONE (09:15)
--- NOTE | 2018-04-03 09:15 | Cardioversion ---
Cardioversion PROCEDURE PHYSICIAN: Mohsen Tinoco DATE OF PROCEDURE: 04/03/18 DIRECT EXTERNAL ELECTRICAL CARDIOVERSION: Indications: Atrial Fibrillation Preoperative diagnoses: Atrial Fibrillation Postoperative diagnosis: Sinus rhythm, Successful Electrical Cardioversion History: Anesthesia: By Anesthesia services Complications: None Flouroscopy: none Procedure Details: The patient was brought the label remover after informed consent was taken, all the risks and complications were explained including the risk of stroke. Electrical cardioversion was carried out with anesthesia support with propofol. 120 joules of synchronized shock was delivered through external patches which promptly restored sinus rhythm. The patient tolerated the procedure well. Conclusions: Successful electrical cardioversion and terminating atrial fibrillation Final Diagnosis: Atrial fibrillation Palpitation Hypotension Weakness and fatigue MOHSEN TINOCO MD Apr 03, 2018 09:15
--- NOTE | 2018-04-03 09:20 | Anesthesia-Procedure Note ---
Procedures/Interventions Procedure Start/Stop/Diagnosis Date of Procedure: Apr 03, 2018 Start Time: 08:56 Referring Physician: Alejandrina Preprocedural Diagnosis: A Fib Brief History Patient in ICU 6 in need of sedation for VIANCA/Cardioversion. Patient's allergies were noted and a brief history obtained from patient. The patient was given 2mg Versed and 80mg Propofol total to complete both VIANCA and Cardioversion. VSS throughout procedure and O2 remains at 3L/NC. Patient's RN was present and I reported off to her. Stop Time: 09:15 VIANCA/Cardioversion Anesthesia Type: MAC ASA Class: 3 Medications Versed 2 mg Propofol 80 mg Monitors and Equipment: BP Cuff - Right, Continuous EKG, End Tidal CO2, IV ( Left AC), Pulse Oximeter FERNANDO CHEUNG CRNA Apr 03, 2018 09:20
[2018-04-03] MEDS ORDERED: proPOfol 200 MG/20 ML (DIPRIVAN) VIAL IV ONE (09:33)
[2018-04-03] MEDS: APIXABAN 5 MG (ELIQUIS) TABLET PO SCH (10:06)
[2018-04-03] MEDS: AMIODARONE 200 MG (CORDARONE) TAB PO SCH ×2 (10:06→14:07)
--- NOTE | 2018-04-03 10:39 | Progress Note-Hospitalist ---
TYLOR NARAYANAN MEDICAL STUDENT 04/03/18 1039: Subjective HPI/CC On Admission Date Seen by Provider: Apr 03, 2018 Time Seen by Provider: 10:30 Patient presented to the ER w/fatigue and palpitations and was found to have AF with dyspnea. Patient was admitted to hospital and placed on Amiodarone drip and will have VIANCA to check for atrial thrombus and then cardioversion if no thrombus identified. Patient feels much better overall. Denies pain. Dyspnea is improved but she still feels like she has the AF although lower rate. Subjective/Events-last exam Pt had no acute events overnight and slept well. She was cardioverted this morning and no longer feels that her heart is pounding. Symptoms of neck and shoulder pain, left arm and leg numbness have resolved. Has been up and walking to and from commode. Pt has not had a BM, but does not wish to have miralax as this typically causes her to have diarrhea. Urinating without difficulty. Pt states she is ready for discharge Focused Exam Respiratory: Chest Non Tender, Lungs Clear, Normal Breath Sounds Cardiovascular: Regular Rate, Rhythm Skin: normal color, warm/dry Objective Exam Vital Signs Vital Signs Date Time Temp Pulse Resp B/P (MAP) Pulse Ox O2 Delivery O2 Flow Rate FiO2 04/03/18 09:15 71 126/79 (95) 98 Room Air 04/02/18 04:00 97.7 18 04/01/18 22:20 2.00 89 Capillary Refill : Less Than 3 Seconds Results/Procedures Lab Laboratory Tests 04/03/18 02:45 Patient resulted labs reviewed. Assessment/Plan Assessment and Plan Assess & Plan/Chief Complaint 73 year old female with history of paroxysmal afib on anticoagulation, CAD s/p triple bypass, CHF, COPD, admitted after presenting to ED in afib now clinically stable on amiodarone drip. Atrial fibrillation -S/p VIANCA and cardioversion, now in sinus rhythm. -On Eliquis for anticoagulation CHF -Hypotensive in ED, resolved. 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 Dispo -Plan for discharge home today Clinical Quality Measures AMI/AHF: ASA po Prior to arrival: No DVT/VTE Risk/Contraindication: Risk Factor Score Per Nursin RFS Level Per Nursing on Admit: 2=Moderate JAIR GONSALES DO 04/03/18 1229: Subjective HPI/CC On Admission Time Seen by Provider: 11:00 Subjective/Events-last exam Ready for DC Amiodarone 400mg PO BID for 1 weeks then 1 PO BID per Cardiology Anxiety plays a role in her issue and she is aware of that since she was convinced she was in AF again and exam revealed NSR confirmed on Tely Review of Systems General: Fatigue Cardiovascular: Palpitations Objective Exam General Appearance: No Apparent Distress, WD/WN, Chronically ill Respiratory: Chest Non Tender, Lungs Clear, Normal Breath Sounds, No Accessory Muscle Use, No Respiratory Distress Cardiovascular: Regular Rate, Rhythm, No Edema, No Gallop, No JVD, No Murmur, Normal Peripheral Pulses Neurologic/Psychiatric: Alert, Oriented x3, No Motor/Sensory Deficits, Normal Mood/Affect Skin: Normal Color, Warm/Dry Assessment/Plan Assessment and Plan Assess & Plan/Chief Complaint DC home if ok with KRYSTLE SchmidtNATHAN MEDICAL STUDENT Apr 03, 2018 10:39 JAIR GONSALES DO Apr 03, 2018 12:29
[2018-04-03] MEDS ORDERED: AMIO200T4 PO (11:44)
--- NOTE | 2018-04-03 11:45 | Discharge Summary-Hospitalist ---
Diagnosis/Chief Complaint Date of Admission Apr 02, 2018 at 10:53 Date of Discharge Discharge Date: Apr 03, 2018 Admission Diagnosis AF w/RVR CAD previous bypass Dyspnea Discharge Diagnosis (1) Atrial fibrillation Status: Resolved (2) Insomnia Status: Chronic (3) Depression Status: Chronic (4) Anxiety Status: Chronic (5) Hyperlipidemia Status: Chronic (6) Obesity Status: Chronic (7) Labile blood pressure Status: Chronic (8) SOB (shortness of breath) Status: Acute (9) S/P CABG (coronary artery bypass graft) Status: Chronic Discharge Summary Discharge Physical Exam Allergies: Coded Allergies: Iodinated Contrast- Oral and IV Dye (Unverified Allergy, Mild, NAUSEA, 21/02) Pt states it's the IV dye used in heart tests not CT scans penicillin G (Verified Allergy, Mild, RASH, 03/23/18) RASH Vitals & I&Os Vital Signs Date Time Temp Pulse Resp B/P (MAP) Pulse Ox O2 Delivery O2 Flow Rate FiO2 04/03/18 11:00 72 149/89 (109) 94 Room Air 04/02/18 04:00 97.7 18 04/01/18 22:20 2.00 89 General Appearance: No Apparent Distress, WD/WN Respiratory: Chest Non Tender, Lungs Clear, Normal Breath Sounds, No Accessory Muscle Use, No Respiratory Distress Cardiovascular: Regular Rate, Rhythm, No Edema, No Gallop, No JVD, No Murmur, Normal Peripheral Pulses Neurologic/Psychiatric: Alert, Oriented x3, No Motor/Sensory Deficits, Normal Mood/Affect Hospital Course Hospital course: patient had an uneventful hospital course. Admitted for AF w/ RVR, placed on Amiodarone drip per Cardiology and was successfully cardioverted after VIANCA revealed no thrombus. Pt was maintained on anticoagulation during entire course. Pt felt well enough to be DC home with close f/u with Dr Tinoco on Amiodarone 400mg BID for 7 days then 200mg BID. Labs (last 24 hrs) Laboratory Tests 04/03/18 02:45: White Blood Count 5.6, Red Blood Count 4.13L, Hemoglobin 11.9, Hematocrit 37, Mean Corpuscular Volume 90, Mean Corpuscular Hemoglobin 29, Mean Corpuscular Hemoglobin Concent 32, Red Cell Distribution Width 15.0H, Platelet Count 221, Mean Platelet Volume 10.7H, Sodium Level 141, Potassium Level 3.7, Chloride Level 110H, Carbon Dioxide Level 23, Anion Gap 8, Blood Urea Nitrogen 9, Creatinine 0.80, Estimat Glomerular Filtration Rate > 60, BUN/Creatinine Ratio 11, Glucose Level 104, Calcium Level 8.4L, Corrected Calcium 9.0, Total Bilirubin 0.4, Aspartate Amino Transf (AST/SGOT) 16, Alanine Aminotransferase ( ALT/SGPT) 15, Alkaline Phosphatase 61, Total Protein 5.3L, Albumin 3.2 Patient resulted labs reviewed. Discussion & Recommendations Discharge Planning: <30 minutes discharge planning Discharge Home Medications: Active Scripts Active Amiodarone HCl 200 Mg Tablet 200 Mg PO BID 2 pills BID for 7 days then 1 pill BID Reported Hydrochlorothiazide 25 Mg Tablet 25 Mg PO DAILY Sotalol (Sotalol HCl) 80 Mg Tablet 40 Mg PO BID Entresto 49 mg-51 mg Tablet (Sacubitril/Valsartan) 1 Each Tablet 1 Tab PO BID Ezetimibe 10 Mg Tablet 10 Mg PO DAILY Trazodone HCl 50 Mg Tablet 50 Mg PO DAILY Paroxetine HCl 20 Mg Tablet 20 Mg PO HS Furosemide 20 Mg Tablet 20 Mg PO DAILY Klor-Con M10 (Potassium Chloride) 10 Meq Tab.er.prt 10 Meq PO DAILY Omeprazole 20 Mg Capsule.dr 20 Mg PO DAILY Tylenol with Codeine #3 Tablet (Acetaminophen with Codeine) 1 Each Tablet 1 Tab PO Q6H PRN Eliquis (Apixaban) 5 Mg Tablet 5 Mg PO BID Vitamin D-3 (Cholecalciferol (Vitamin D3)) 2,000 Unit Tablet 2,000 Unit PO DAILY Ambien (Zolpidem Tartrate) 10 Mg Tablet 10 Mg PO HS Lipitor (Atorvastatin Calcium) 80 Mg Tablet 40 Mg PO DAILY TAKES 1/2 (80MG) TABLET Terazosin HCl 5 Mg Capsule 5 Mg PO DAILY Instructions to patient/family Please see electronic discharge instructions given to patient. Clinical Quality Measures AMI/AHF: ASA po Prior to arrival: No DVT/VTE Risk/Contraindication: Risk Factor Score Per Nursin RFS Level Per Nursing on Admit: 2=Moderate Problem Qualifiers (1) Atrial fibrillation: Atrial fibrillation type: chronic Qualified Codes: I48.2 - Chronic atrial fibrillation (2) Insomnia: Insomnia type: primary Qualified Codes: F51.01 - Primary insomnia (3) Depression: Depression Type: unspecified Qualified Codes: F32.9 - Major depressive disorder, single episode, unspecified (4) Hyperlipidemia: Hyperlipidemia type: mixed hyperlipidemia Qualified Codes: E78.2 - Mixed hyperlipidemia (5) Obesity: Obesity type: due to excess calories Obesity classification: adult class 3 ( BMI >= 40) Serious obesity comorbidity presence: with serious comorbidity Body mass index: BMI 40.0-44.9 Qualified Codes: E66.01 - Morbid (severe) obesity due to excess calories; Z68.41 - Body mass index (BMI) 40.0-44.9, adult JAIR GONSALES DO Apr 03, 2018 11:45
[2018-04-03] MEDS ORDERED: ATORVASTATIN 40 MG (LIPITOR) TABLET PO SCH (21:00)
== END 2018-04-03 14:10 | disposition home or self-care (01) | DRG 309 ==
LOC: EDUNIT# 21:49 → ER 21:50 → ICU 23:50 → OBSVTOIN 04-02 10:53 → ICU 04-02 11:19
PROVIDERS: ADMIT Internal Medicine; ATTEND Internal Medicine
PROC: 5A2204Z Restoration of Cardiac Rhythm, Single (ICD-10-PCS; principal; 2018-04-03)
DX: I48.0 Paroxysmal atrial fibrillation (principal); I11.0 Hypertensive heart disease with heart failure; I50.20 Unspecified systolic (congestive) heart failure; I25.10 Atherosclerotic heart disease of native coronary artery without angina pectoris; G47.33 Obstructive sleep apnea (adult) (pediatric); J44.9 Chronic obstructive pulmonary disease, unspecified; E78.5 Hyperlipidemia, unspecified; K21.9 Gastro-esophageal reflux disease without esophagitis; F41.9 Anxiety disorder, unspecified; F32.9 Major depressive disorder, single episode, unspecified; G47.00 Insomnia, unspecified; Z87.891 Personal history of nicotine dependence; Z95.1 Presence of aortocoronary bypass graft
CPT/HCPCS: 36415; 71045; 80053; 80061; 81000; 83735; 83874; 83880; 84484; 85025; 85027; 85379; 85610; 85730; 93005; 93041; 93320; 93325; 96361; 96374; 96375

== ENCOUNTER → 2018-08-01 | Outpatient (CLI) | payer MEDICARE, OTHER ==
[~2018-08-01] MED LIST changes: +AMIO200T4 PO
--- NOTE | 2018-08-01 12:06 | Diagnostic Imaging Report ---
INDICATION: Back pain. EXAMINATION: Lumbar spine. FINDINGS: AP and lateral views of the lumbar spine show compression fractures of L1, L3, and L4. The L1 compression fracture was present on a previous MRI from 10/16/2014. The age of the L3 and L4 compression fractures is indeterminate. IMPRESSION: Mild scoliosis of the lumbar spine. Compression fractures of L1, L3, and L4. The age of L3 and L4 is indeterminate from this study. MRI would be more sensitive. Dictated by: Dictated on workstation # [id number]
== END ==
LOC: RAD 11:24
PROVIDERS: ATTEND Nurse Practitioner Family
DX: S32.010A Wedge compression fracture of first lumbar vertebra, initial encounter for closed fracture (principal); S32.030A Wedge compression fracture of third lumbar vertebra, initial encounter for closed fracture; S32.040A Wedge compression fracture of fourth lumbar vertebra, initial encounter for closed fracture; M41.86 Other forms of scoliosis, lumbar region
CPT/HCPCS: 72100

== ENCOUNTER → 2018-08-10 | Outpatient (CLI) | payer MEDICARE, OTHER | LOC: CARD 12:38 | PROVIDERS: ATTEND Internal Medicine Cardiovascular Disease | DX: I25.10 Atherosclerotic heart disease of native coronary artery without angina pectoris (principal); R07.89 Other chest pain; I10 Essential (primary) hypertension; E78.5 Hyperlipidemia, unspecified; G47.33 Obstructive sleep apnea (adult) (pediatric); I08.1 Rheumatic disorders of both mitral and tricuspid valves | CPT/HCPCS: 93306 ==

== ENCOUNTER → 2018-09-20 | Outpatient (CLI) | payer MEDICARE, OTHER ==
[2018-09-20 12:15] LABS: INR 2.1 (0.8-1.4); PROTHROMBIN TIME PATIENT 23.9 SEC (12.2-14.7)
== END ==
LOC: LAB 11:46
PROVIDERS: ATTEND Internal Medicine Cardiovascular Disease
DX: I48.0 Paroxysmal atrial fibrillation (principal)
CPT/HCPCS: 36415; 85610

== ENCOUNTER 2018-10-11 09:37 | Emergency (ER) | payer MEDICARE, OTHER ==
[~2018-10-11] VITALS: Ht 170.2 cm; Wt 119.3 kg
[2018-10-11] MEDS ORDERED: ASPIRIN 81 MG CHEW (CHILDREN'S ASA) PO ONE (09:45)
--- OUTSIDE RECORDS SUMMARY | 2018-10-11 09:45 | XMS REPORT | Clinical Summary ---
Author Author [facility] Organization [facility] Address Unknown Phone Unavailable Care Team Providers Care Shuttlecock Assembler Name Role Phone Scarlett Spring MD PCP Source Comments Some departments are not documenting in the electronic medical record. If you do not see the information that you expected, contact Release of Information in the Health Information Management department at [phone] for further assistance in locating additional records.[facility] Allergies Comments Active Allergy Reactions Severity Noted Date Iodinated Contrast- Oral NAUSEA AND Low 04/22/2017 And Iv Dye VOMITING Penicillins RASH Medium 04/22/2017 Medications End Date Status Medication Sig Dispensed Refills Start Date Active apixaban (ELIQUIS) 5 mg Take 5 mg by 0 tablet mouth twice daily. Active potassium chloride SR Take 10 mEq 0 (K-DUR) 10 mEq tablet by mouth daily. Take with a meal and a full glass of water. Active furosemide (LASIX) 20 mg Take 20 mg by 0 tablet mouth every morning. Active atorvastatin (LIPITOR) 80 Take 80 mg by 0 mg tablet mouth daily. Active metoprolol XL (TOPROL XL) Take 100 mg 0 100 mg extended release by mouth tablet daily. Active ezetimibe (ZETIA) 10 mg Take 10 mg by 0 tablet mouth daily. Active zolpidem (AMBIEN) 10 mg Take 10 mg by 0 tablet mouth at bedtime as needed for Sleep. Active CHOLECALCIFEROL (VITAMIN Take 1 tablet 0 D3) PO by mouth daily. Active omeprazole DR(+) Take 20 mg by 0 (PRILOSEC) 20 mg capsule mouth daily before breakfast. Active PARoxetine (PAXIL) 20 mg Take 20 mg by 0 tablet mouth daily. Active terazosin (HYTRIN) 5 mg Take 5 mg by 0 capsule mouth at bedtime daily. Active traZODone (DESYREL) 50 mg Take 50 mg by 0 tablet mouth at bedtime as needed for Sleep. Active sacubitril/valsartan Take 1 tablet 0 (ENTRESTO) 24/26 mg by mouth tablet twice daily. Active acetaminophen/codeine Take 1 tablet 0 (TYLENOL #3) 300/30 mg by mouth tablet every 6 hours as needed for Pain (pt takes for back pain). Max of 4,000 mg of acetaminophen in 24 hours. Active Problems Problem Noted Date SOB (shortness of breath) 05/06/2017 HTN (hypertension) 05/06/2017 Atrial fibrillation 05/06/2017 Overview: ECHO 03/09/17 EF 60-65%, LA mildly dilated CAD (coronary artery disease) 05/06/2017 Overview: 2004: CABG x4 Pulmonary hypertension 05/06/2017 Hyperlipidemia 05/06/2017 Family History Medical History [...] 39) Paternal Grandfather Paternal Grandmother Social History Date Tobacco Use Types Packs/Day Years Used Quit: 07/26/1990 Former Smoker Smokeless Tobacco: Never Used Alcohol Use Drinks/Week oz/Week Comments No Sex Assigned at Date Recorded Not on file Industry Job Start Date Occupation Not on file Not on file Not on file Travel End Travel History Travel Start No recent travel history available. Last Filed Vital Signs Time Taken Vital Sign Reading 07/08/2017 12:58 PM SINGER SONGWRITER Blood Pressure 126/86 07/08/2017 12:58 PM SINGER SONGWRITER Pulse 55 - Temperature - - Respiratory Rate - 06/01/2017 12:40 PM SINGER SONGWRITER Oxygen Saturation 93% - Inhaled Oxygen - Concentration 07/08/2017 12:58 PM SINGER SONGWRITER Weight 121.6 kg (268 lb) 07/08/2017 12:58 PM SINGER SONGWRITER Height 167.6 cm (5' 5.98") 07/08/2017 12:58 PM SINGER SONGWRITER Body Mass Index 43.28 Plan of Treatment Health Maintenance Due Date Last Done Comments HEPATITIS C SCREENING 1945 PHYSICAL (COMPREHENSIVE) 1952 EXAM DTAP/TDAP VACCINES (1 - 1963 Tdap) BREAST CANCER SCREENING 1985 COLORECTAL CANCER 1995 SCREENING SHINGLES RECOMBINANT 1995 VACCINE (1 of 2) OSTEOPOROSIS 2010 SCREENING/MONITORING PNEUMONIA (PCV13/PPSV23) 2010 VACCINES (1 of 2 - PCV13) INFLUENZA VACCINE 02/23/2018 Results Not on filefrom Last 3 Months Insurance Payer Benefit Subscriber ID Type Phone Address Plan / Group MEDICARE MEDICARE xxxxxxxxxx Medicare PART A AND B GENERIC COMMERCIAL GENERIC xxxxxxxxxxxx Indemnity COMMERCIAL ([place]) [place] [address] Advance Directives Patient has advance care planning documents on file. For more information, please contact: [facility] [address] [place] [address]
--- OUTSIDE RECORDS SUMMARY | 2018-10-11 09:48 | XMS REPORT | CCD ---
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 Name Role Phone PP Unavailable CCM Unavailable Summary Purpose Interface Exchange Insurance Providers Payer name Policy type / Coverage type Covered constitution party ID Effective Begin Date Effective End Date WPS Medicare Part B Medicare Part B [id number] Unknown [employer] Medicare Part B [id number] Unknown Family history Mother Diagnosis Age At Onset Hypertension Unknown Heart Attack Unknown Brother Diagnosis Age At Onset Heart disease Unknown Runs in the family Diagnosis Age At Onset Heart disease Unknown Daughter Diagnosis Age At Onset Heart Attack Unknown Hyperlipidemia Unknown Hypertension Unknown Social History Social History Element Codes Description Effective Dates Number of children Unknown 2 daughter lives in [place], son - does not have contact [address]: 3382240 Quit over 10 years ago 1990 - previously smoked 2ppd x 25 years. 11/18/2015 Marital status Unknown in 201003/06/2015 Employment Unknown Retired was a [employer] 03/06/2015 Allergies, Adverse Reactions, Alerts Substance Reaction Codes Entered Date Inactivated Date Status * NO KNOWN FOOD ALLERGIES Unknown 03/06/2015 No Inactive Date Active Iodine RxNorm: 5933 03/06/2015 No Inactive Date Active Penicillin Unknown 03/06/2015 No Inactive Date Active Past Medical History Illness Codes Condition Status Onset Date Resolved Date Dysuria ICD-9: 788.1 ICD-10: R30.0 Active 09/29/2015 Unknown Essential (primary) hypertension ICD-9: 401.9 ICD-10: I10 Active 03/05/2015 Unknown Low back pain ICD-9: 724.2 ICD-10: M54.5 Active 10/07/2016 Unknown Essential (primary) hypertension ICD-9: 401.1 ICD-10: I10 Active 12/16/2017 Unknown Cough ICD-9: 786.2 ICD-10: R05 Active 11/26/2016 Unknown Chronic atrial fibrillation ICD-9: 427.31 ICD-10: I48.2 Active 08/23/2017 Unknown Encounter for immunization ICD-9: V03.9 ICD-10: Z23 Active 04/07/2016 Unknown Major depressive disorder, recurrent, 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-10: F33.0 Active 09/16/2016 Unknown Encounter for general adult medical examination with abnormal findings ICD-9: V70.0 ICD-10: Z00.01 Active 02/03/2017 Unknown Obstructive sleep apnea (adult) (pediatric) ICD-9: 327.23 ICD-10: G47.33 Active 12/16/2017 Unknown Paroxysmal atrial fibrillation ICD-9: 427.31 ICD-10: I48.0 Active 02/02/2017 Unknown Acute laryngopharyngitis ICD-9: 465.0 ICD-10: J06.0 Active 11/26/2016 Unknown Other dorsalgia ICD-9 : 724.5 ICD-10: M54.89 Active 03/05/2015 Unknown Pleurodynia ICD-9: 786.50 ICD-10: R07.81 Active 11/26/2016 Unknown Major depressive disorder, recurrent, moderate ICD-9: 296.32 ICD-10: F33.1 Active 10/07/2016 Unknown Pain in left knee ICD- 9: 719.46 ICD-10: M25.562 Active 09/07/2016 Unknown Rash and other nonspecific skin eruption ICD-9: 782.1 ICD-10: R21 Active 08/27/2015 Unknown Pain in left lower leg ICD-9: 729.5 ICD-10: M79.662 Active 09/07/2016 Unknown Mixed hyperlipidemia ICD-9: 272.2 ICD-10: E78.2 Active 04/07/2016 Unknown Shortness of breath ICD-9: 786.05 ICD-10: R06.02 Active 03/04/2016 Unknown Chronic obstructive pulmonary disease, unspecified ICD-9: 491.20 ICD-10: J44.9 Active 12/03/2015 Unknown Allergic rhinitis due to pollen ICD-9: 477.0 ICD-10: J30.1 Active 11/17/2015 Unknown Localized edema ICD-9 : 782.3 ICD-10: [...] Problems Condition Codes Effective Dates Condition Status Dysuria ICD-9: 788.1 ICD-10: R30.0 09/29/2015 Active Essential (primary) hypertension ICD-9: 401.9 ICD-10: I10 03/05/2015 Active Low back pain ICD-9: 724.2 ICD-10: M54.5 10/07/2016 Active Essential (primary) hypertension ICD-9: 401.1 ICD-10: I10 12/16/2017 Active Cough ICD-9: 786.2 ICD-10: R05 11/26/2016 Active Chronic atrial fibrillation ICD-9: 427.31 ICD-10: I48.2 08/23/2017 Active Encounter for immunization ICD-9: V03.9 ICD-10: Z23 04/07/2016 Active Major depressive disorder, recurrent, 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-10: F33.0 09/16/2016 Active Encounter for general adult medical examination with abnormal findings ICD-9: V70.0 ICD-10: Z00.01 02/03/2017 Active Obstructive sleep apnea (adult) (pediatric) ICD-9: 327.23 ICD-10: G47.33 12/16/2017 Active Paroxysmal atrial fibrillation ICD-9: 427.31 ICD-10: I48.0 02/02/2017 Active Acute laryngopharyngitis ICD-9: 465.0 ICD-10: J06.0 11/26/2016 Active Other dorsalgia ICD-9 : 724.5 ICD-10: M54.89 03/05/2015 Active Pleurodynia ICD-9: 786.50 ICD-10: R07.81 11/26/2016 Active Major depressive disorder, recurrent, moderate ICD-9: 296.32 ICD-10: F33.1 10/07/2016 Active Pain in left knee ICD- 9: 719.46 ICD-10: M25.562 09/07/2016 Active Rash and other nonspecific skin eruption ICD-9: 782.1 ICD-10: R21 08/27/2015 Active Pain in left lower leg ICD-9: 729.5 ICD-10: M79.662 09/07/2016 Active Mixed hyperlipidemia ICD-9: 272.2 ICD-10: E78.2 04/07/2016 Active Shortness of breath ICD-9: 786.05 ICD-10: R06.02 03/04/2016 Active Chronic obstructive pulmonary disease, unspecified ICD-9: 491.20 ICD-10: J44.9 12/03/2015 Active Allergic rhinitis due to pollen ICD-9: 477.0 ICD-10: J30.1 11/17/2015 Active Localized edema ICD-9 : 782.3 ICD-10: [...] Start Date Stop Date Status Fill Instructions Ambien 10 mg tablet RxNorm: 773937 TAKE ONE TABLET BY MOUTH AT BEDTIME NEEDED 09/23/2018 11/21/2018 Active terazosin 5 mg capsule RxNorm: 247686 TAKE ONE CAPSULE BY MOUTH DAILY 09/23/2018 02/19/2019 Active trazodone 50 mg tablet RxNorm: 227394 TAKE ONE TABLET BY MOUTH DAILY 09/23/2018 03/21/2019 Active losartan 50 mg tablet RxNorm: 662314 1 Tablet(s) PO daily 201803/13/2019 Active omeprazole 20 mg capsule,delayed release RxNorm: 250023 TAKE ONE CAPSULE BY MOUTH EVERY NIGHT AT BEDTIME 09/12/20182018 Active Keflex 500 mg capsule RxNorm: 762599 1 Capsule(s) PO TID 201808/17/2018 Inactive Keflex 500 mg capsule RxNorm: 357691 1 Capsule(s) PO TID 201808/24/2018 Inactive take probiotic while on abx paroxetine 20 mg tablet RxNorm: 6936531 TAKE ONE TABLET BY MOUTH DAILY 08/12/2018 08/06/2019 Active losartan 25 mg tablet RxNorm: 283898 1 Tablet(s) PO daily 201809/29/2018 Active losartan 25 mg tablet RxNorm: 057932 1 Tablet(s) PO daily 201809/14/2018 Inactive trazodone 50 mg tablet RxNorm: 292068 TAKE ONE TABLET BY MOUTH DAILY 07/25/2018 09/22/2018 Inactive Ambien 10 mg tablet RxNorm: 253458 Tablet(s) TAKE ONE TABLET BY MOUTH AT BEDTIME 06/24/2018 09/23/2018 Inactive trazodone 50 mg tablet RxNorm: 109147 TAKE ONE TABLET BY MOUTH DAILY 04/25/2018 07/23/2018 Inactive Ambien 10 mg tablet RxNorm: 609668 Tablet(s) TAKE ONE TABLET BY MOUTH AT BEDTIME 03/23/2018 06/19/2018 Inactive terazosin 5 mg capsule RxNorm: 114753 TAKE ONE CAPSULE BY MOUTH DAILY 03/14/2018 09/09/2018 Inactive Ambien 10 mg tablet RxNorm: 141043 Tablet(s) TAKE ONE TABLET BY MOUTH AT BEDTIME 01/18/2018 09/14/2018 Inactive trazodone 50 mg tablet RxNorm: 443628 TAKE ONE TABLET BY MOUTH ONCE DAILY 01/10/2018 03/22/2018 Inactive trazodone 50 mg tablet RxNorm: 047689 Tablet(s) TAKE ONE TABLET BY MOUTH ONCE DAILY 01/10/2018 04/24/2018 Inactive Ambien 10 mg tablet RxNorm: 386728 Tablet(s) TAKE ONE TABLET BY MOUTH AT BEDTIME 10/22/2017 01/17/2018 Inactive trazodone 50 mg tablet RxNorm: 287566 TAKE ONE TABLET BY MOUTH ONCE DAILY 10/18/2017 01/09/2018 Inactive omeprazole 20 mg capsule,delayed release RxNorm: 354651 TAKE ONE CAPSULE BY MOUTH ONCE DAILY AT BEDTIME 08/27/20172018 Inactive trazodone 50 mg tablet RxNorm: 016702 TAKE ONE TABLET BY MOUTH ONCE DAILY 08/18/2017 10/17/2017 Inactive Ambien 10 mg tablet RxNorm: 733758 Tablet(s) TAKE ONE TABLET BY MOUTH AT BEDTIME 08/18/2017 03/22/2018 Inactive paroxetine 20 mg tablet RxNorm: 2041856 TAKE ONE TABLET BY MOUTH ONCE DAILY 07/27/2017 08/11/2018 Inactive Ambien 10 mg tablet RxNorm: 062708 Tablet(s) TAKE ONE TABLET BY MOUTH AT BEDTIME 06/23/2017 03/22/2018 Inactive omeprazole 20 mg capsule,delayed release RxNorm: 648037 TAKE ONE CAPSULE BY MOUTH ONCE DAILY AT BEDTIME 04/23/20172017 Inactive trazodone 50 mg tablet RxNorm: 907443 TAKE ONE TABLET BY MOUTH ONCE DAILY 04/13/2017 08/10/2017 Inactive terazosin 5 mg capsule RxNorm: 310549 Capsule(s) TAKE ONE CAPSULE BY MOUTH DAILY 04/08/2017 03/03/2018 Inactive Ambien 10 mg tablet RxNorm: 964879 Tablet(s) TAKE ONE TABLET BY MOUTH AT BEDTIME 02/17/2017 03/22/2018 Inactive Tylenol-Codeine #3 300 mg-30 mg tablet RxNorm: 759323 1 Tablet(s) PO QID as needed 02/02/2017 03/03/2017 Inactive metoprolol succinate ER 50 mg tablet,extended release 24 hr RxNorm: 884155 TAKE ONE TABLET BY MOUTH ONCE DAILY 12/23/2016 02/02/2017 Inactive Zithromax Z-Ted 250 mg tablet RxNorm: 312943 1 Tablet(s) PO UD 11/26/2016 02/16/2017 Inactive trazodone 50 mg tablet RxNorm: 098247 TAKE ONE TABLET BY MOUTH ONCE DAILY 11/12/2016 03/11/2017 Inactive Ambien 10 mg tablet RxNorm: 388550 Tablet(s) TAKE ONE TABLET BY MOUTH AT BEDTIME 10/22/2016 02/15/2017 Inactive paroxetine 20 mg tablet RxNorm: 7928170 1 Tablet(s) PO daily TAKE ONE TABLET BY MOUTH DAILY 09/16/2016 06/12/2017 Inactive meloxicam 7.5 mg tablet RxNorm: 230964 1 Tablet(s) PO daily 11/14/2016 Inactive Protonix 40 mg tablet,delayed release RxNorm: 072441 1 Tablet(s) PO daily 09/16/2016 08/22/2017 Inactive sucralfate 1 gram tablet RxNorm: 370726 1 Tablet(s) PO TID 08/22/2017 Inactive Ambien 10 mg tablet RxNorm: 116971 Tablet(s) TAKE ONE TABLET BY MOUTH AT BEDTIME 08/24/2016 03/22/2018 Inactive trazodone 50 mg tablet RxNorm: 779035 Tablet(s) TAKE ONE TABLET BY MOUTH DAILY 07/29/2016 11/11/2016 Inactive Ambien 10 mg tablet RxNorm: 672144 TAKE ONE TABLET BY MOUTH AT BEDTIME 06/23/2016 03/22/2018 Inactive Ambien 10 mg tablet RxNorm: 949691 Tablet(s) TAKE ONE TABLET BY MOUTH EVERY NIGHT AT BEDTIME 06/22/2016 06/23/2016 Inactive Lasix 40 mg tablet RxNorm: 874763 1 Tablet(s) PO daily as needed for swelling 04/03/2016 09/15/2016 Inactive potassium chloride ER 20 mEq tablet,extended release RxNorm: 327671 1 Tablet(s) PO daily for swelling take with lasix as needed 04/03/2016 09/15/2016 Inactive Ambien 10 mg tablet RxNorm: 165836 Tablet(s) TAKE ONE TABLET BY MOUTH EVERY NIGHT AT BEDTIME 04/03/2016 03/22/2018 Inactive omeprazole 20 mg capsule,delayed release RxNorm: 318695 TAKE ONE CAPSULE BY MOUTH EVERY NIGHT AT BEDTIME 03/31/20162016 Inactive paroxetine 20 mg tablet RxNorm: 2625232 TAKE ONE TABLET BY MOUTH DAILY 03/31/2016 09/15/2016 Inactive trazodone 50 mg tablet RxNorm: 589876 TAKE ONE TABLET BY MOUTH DAILY 03/20/2016 07/28/2016 Inactive terazosin 5 mg capsule RxNorm: 226507 TAKE ONE CAPSULE BY MOUTH DAILY 03/06/2016 10/06/2016 Inactive Ambien 10 mg tablet RxNorm: 212490 Tablet(s) TAKE ONE TABLET BY MOUTH EVERY NIGHT AT BEDTIME 01/17/2016 04/02/2016 Inactive loratadine 10 mg tablet RxNorm: 064513 1 Tablet(s) PO daily 09/15/2016 Inactive mupirocin 2 % topical ointment RxNorm: 644653 1 Application TOP TID 11/18/2015 12/01/2015 Inactive metoprolol succinate ER 50 mg tablet,extended release 24 hr RxNorm: 792762 1 Tablet(s) PO daily 11/18/2015 11/11/2016 Inactive loratadine 10 mg tablet RxNorm: 623369 1 Tablet(s) PO daily 01/14/2016 Inactive Lasix 40 mg tablet RxNorm: 853224 1 Tablet(s) PO daily as needed for swelling 10/30/2015 11/28/2015 Inactive potassium chloride ER 20 mEq tablet,extended release RxNorm: 129833 1 Tablet(s) PO daily for swelling take with lasix as needed 10/30/2015 11/28/2015 Inactive Tylenol-Codeine #3 300 mg-30 mg tablet RxNorm: 642986 1 Tablet(s) PO QID as needed 10/25/2015 02/01/2017 Inactive Ambien 10 mg tablet RxNorm: 319009 Tablet(s) TAKE ONE TABLET BY MOUTH EVERY NIGHT AT BEDTIME 10/18/2015 03/22/2018 Inactive Diflucan 150 mg tablet RxNorm: 285222 1 Tablet(s) PO daily 02/201612/03/2015 Inactive Lasix 20 mg tablet RxNorm: 899174 1 Tablet(s) PO PRN fror swelling 09/27/2015 10/29/2015 Inactive potassium chloride ER 10 mEq capsule,extended release RxNorm: 744686 1 Capsule(s) PO PRN for swelling take with lasix 09/27/2015 10/29/2015 Inactive Bactrim DS 800 mg-160 mg tablet RxNorm: 530727 1 Tablet(s) PO BID 09/02/2015 09/11/2015 Inactive Bactrim DS 800 mg-160 mg tablet RxNorm: 921610 1 Tablet(s) PO BID 09/02/2015 09/01/2015 Inactive nystatin 100,000 unit/gram topical cream RxNorm: 708177 1 Gram(s) TOP TID 08/28/2015 09/26/2015 Inactive Diflucan 150 mg tablet RxNorm: 914150 1 Tablet(s) PO daily 09/201509/06/2015 Inactive betamethasone dipropionate 0.05 % topical ointment RxNorm: 983760 1 Application TOP TID to affected area 08/02/20152016 Inactive nystatin 100,000 unit/gram topical powder RxNorm: 483419 1 Gram(s) TOP QID 07/09/2015 08/01/2015 Inactive Ambien 10 mg tablet RxNorm: 004851 1 Tablet(s) PO QHS 201406/18/2015 Inactive Ambien 10 mg tablet RxNorm: 661806 TAKE ONE TABLET BY MOUTH EVERY NIGHT AT BEDTIME 06/19/2015 09/16/2015 Inactive Vitamin D2 50,000 unit capsule RxNorm: 239597 1 Capsule(s) PO QW 03/07/2015 03/06/2015 Inactive Vitamin D2 50,000 unit capsule RxNorm: 792915 1 Capsule(s) PO QW 03/07/2015 05/05/2015 Inactive terazosin 5 mg capsule RxNorm: 631241 1 Capsule(s) PO daily 06/201502/28/2016 Inactive [SAVINGS FOR NON-COVERED DRUGS -- BIN:039837, PCN: [id number], Group: XXXXX, ID# [id number], Questions: . THIS IS NOT INSURANCE.] trazodone 50 mg tablet RxNorm: 676042 1 Tablet(s) PO daily 06/201502/28/2016 Inactive paroxetine 20 mg tablet RxNorm: 7578082 1 Tablet(s) PO daily 02/28/2016 Inactive Tylenol-Codeine #3 300 mg-30 mg tablet RxNorm: 271665 1 Tablet(s) PO QID as needed 03/06/2015 07/02/2015 Inactive amlodipine 10 mg tablet RxNorm: 241568 1 Tablet(s) PO daily 06/201511/17/2015 Inactive metoprolol succinate ER 25 mg tablet,extended release 24 hr RxNorm: 688884 1 Tablet(s) PO daily 03/06/2015 11/17/2015 Inactive omeprazole 20 mg capsule,delayed release RxNorm: 562905 1 Capsule(s) PO QHS 03/06/2015 02/28/2016 Inactive omeprazole 20 mg capsule,delayed release RxNorm: 263716 1 Capsule(s) PO QHS 01/31/2015 01/30/2015 Inactive omeprazole 20 mg capsule,delayed release RxNorm: 842493 1 Capsule(s) PO QHS 01/31/2015 01/30/2015 Inactive omeprazole 20 mg capsule,delayed release RxNorm: 053238 1 Capsule(s) PO QHS 01/31/2015 03/05/2015 Inactive Ambien 10 mg tablet RxNorm: 497061 1 Tablet(s) PO QHS 201404/21/2015 Inactive paroxetine 20 mg tablet RxNorm: 290003 1 Tablet(s) PO daily 08/201412/24/2014 Inactive Ambien 10 mg tablet RxNorm: 805848 1 Tablet(s) PO QHS 201412/24/2014 Inactive paroxetine 20 mg tablet RxNorm: 939685 1 Tablet(s) PO daily 08/201403/05/2015 Inactive terazosin 5 mg capsule RxNorm: 665730 1 Capsule(s) PO daily 07/201403/05/2015 Inactive [SAVINGS FOR NON-COVERED DRUGS -- BIN:260931, PCN: ASPROD1, Group: XXXXX, ID# [id number], Questions: . THIS IS NOT INSURANCE.] terazosin 5 mg capsule RxNorm: 798501 1 Capsule(s) PO daily 07/201411/22/2014 Inactive Lasix 20 mg tablet RxNorm: 671811 1 Tablet(s) PO daily No Start Date Active K-Dur 10 mEq tablet,extended release RxNorm: 383299 1 Tablet(s) PO daily No Start Date Active hydrochlorothiazide 25 mg tablet RxNorm: 483637 1 Tablet(s) PO daily No Start Date Active Vitamin D3 2,000 unit tablet RxNorm: 171942 1 Tablet(s) PO daily No Start Date Active amiodarone 200 mg tablet RxNorm: 137422 1 Tablet(s) PO BID No Start Date Active Zetia 10 mg tablet RxNorm: 682053 1 Tablet(s) PO daily No Start Date Active Lipitor 80 mg tablet RxNorm: 489828 1/2 Tablet(s) PO daily No Start Date Active Coumadin 4 mg tablet RxNorm: 736361 1 Tablet(s) PO daily No Start Date Active metoprolol succinate ER 25 mg tablet,extended release 24 hr RxNorm: 212499 1 Tablet(s) PO daily No Start Date 2014 Inactive Entresto 49 mg-51 mg tablet RxNorm: 5128294 1 Tablet(s) PO BID No Start Date 04/19/2018 Inactive sotalol 80 mg tablet RxNorm: 8811243 1 Tablet(s) PO BID No Start Date 04/19/2018 Inactive betamethasone dipropionate 0.05 % topical ointment RxNorm: 744277 1 Application TOP TID to affected area No Start Date 01/2016 Inactive trazodone 50 mg tablet RxNorm: 781832 1 Tablet(s) PO daily No Start Date 03/05/2015 Inactive potassium chloride ER 10 mEq capsule,extended release RxNorm: 760765 1 Capsule(s) PO PRN for swelling take with lasix No Start Date 09/26/2015 Inactive Eliquis 5 mg tablet RxNorm: 2799446 1 Tablet(s) PO BID No Start Date 09/14/2018 Inactive amlodipine 10 mg tablet RxNorm: 027493 1 Tablet(s) PO daily No Start Date 03/05/2015 Inactive isosorbide mononitrate ER 30 mg tablet,extended release 24 hr RxNorm: 706760 1 Tablet(s) PO daily No Start Date 2017 Inactive aspirin 81 mg tablet,delayed release RxNorm: 565866 1 Tablet(s) PO daily No Start Date 02/02/2017 Inactive Lasix 20 mg tablet RxNorm: 000347 1 Tablet(s) PO PRN fror swelling No Start Date 09/26/2015 Inactive lisinopril 5 mg tablet RxNorm: 084206 1 Tablet(s) PO daily No Start Date 07/31/2018 Inactive Crestor 40 mg tablet RxNorm: 431722 1 Tablet(s) PO daily No Start Date 09/15/2016 Inactive metoprolol succinate ER 100 mg tablet,extended release 24 hr RxNorm: 879547 1 Tablet(s) PO daily No Start Date 2017 Inactive Medication Administered No Medication Administered data Immunizations Vaccine Codes Date Status Influenza CVX: 141 04/20/2018 completed Influenza CVX: 141 04/08/2016 completed Pneumococcal (Adult) CVX: 133 04/08/2016 completed Assessments Condition Codes Effective Dates Low back pain ICD-10: M54.5 ICD-9: 724.2 09/15/2018 Dysuria ICD-10: R30.0 ICD-9: 788.1 09/15/2018 Essential (primary) hypertension ICD-10: I10 ICD-9: 401.9 09/15/2018 Essential (primary) hypertension ICD-10: I10 ICD-9: 401.1 08/15/2018 Cough ICD-10: R05 ICD-9: 786.2 08/01/2018 Major depressive disorder, recurrent, mild ICD-10: F33.0 ICD-9: 296.31 04/20/2018 Chronic atrial fibrillation ICD-10: I48.2 ICD-9: 427.31 04/20/2018 Encounter for immunization ICD-10: Z23 ICD-9: V03.9 04/20/2018 Encounter for general adult medical examination with abnormal findings ICD-10: Z00.01 ICD-9: V70.0 02/09/2018 Obstructive sleep apnea (adult) (pediatric) ICD-10: G47.33 ICD-9: 327.23 12/16/2017 Paroxysmal atrial fibrillation ICD-10: I48.0 ICD-9: 427.31 02/02/2017 Acute laryngopharyngitis ICD-10: J06.0 ICD-9: 465.0 11/26/2016 Pleurodynia ICD-10: R07.81 ICD-9: 786.50 11/26/2016 Other dorsalgia ICD-10: M54.89 ICD-9: 724.5 11/26/2016 Major depressive disorder, recurrent, moderate ICD-10: F33.1 ICD-9: 296.32 10/07/2016 Pain in left knee ICD-10: M25.562 ICD-9: 719.46 10/07/2016 Rash and other nonspecific skin eruption ICD-10: R21 ICD-9: 782.1 09/16/2016 Pain in left lower leg ICD-10: M79.662 ICD-9: 729.5 09/07/2016 Mixed hyperlipidemia ICD-10: E78.2 ICD-9: 272.2 04/08/2016 Shortness of breath ICD-10: R06.02 ICD-9: 786.05 03/05/2016 Chronic obstructive pulmonary disease, unspecified ICD-10: J44.9 ICD-9: 491.20 12/04/2015 Allergic rhinitis due to pollen ICD-10: J30.1 ICD-9: 477.0 11/18/2015 Localized edema ICD-10: R60.0 ICD-9: 782.3 09/30/2015 [...] Reason For Visit Effective Dates Notes hypertension 09/15/2018 blood pressure followup 08/15/2018 cough 08/01/2018 hypertension 04/20/2018 Annual Medicare Wellness Exam 02/09/2018 hypertension 12/16/2017 hypertension 08/23/2017 Annual Medicare Wellness Exam 02/03/2017 hypertension 02/02/2017 sinus congestion 11/26/2016 hypertension 10/07/2016 hypertension 09/16/2016 knee pain 09/07/2016 dyspnea 04/08/2016 dyspnea 03/05/2016 dyspnea 12/04/2015 edema 11/18/2015 edema 09/30/2015 rash 09/09/2015 rash 08/28/2015 back pain 07/09/2015 back pain 03/06/2015 Results Observation Observation Code Item Item Code Result Date Culture Urine [id number] URINE CULTURE SEE NOTES 08/22/2018 Culture Urine [id number] Continued Results 08/22/2018 Urine Culture Ucult Complete >100,000 col/ml aerobic growth sent to ref lab 08/19/2018 Comp Metabolic Vzw049 NA 140 mEq/L 08/01/2018 Comp Metabolic Vrv673 K 4.2 mEq/L 08/01/2018 Comp Metabolic Lve498 CL 102 mEq/L 08/01/2018 Comp Metabolic Vuz518 CO2 27.0 mEq/L 08/01/2018 Comp Metabolic Xfc905 ANION GAP 15 08/01/2018 Comp Metabolic Fnc338 GLUCOSE 107 mg/dL 08/01/2018 Comp Metabolic Ako508 Creat 1.0 mg/dL 08/01/2018 Comp Metabolic Gry684 eGFR 58 ml/min/1.73m2 08/01/2018 Comp Metabolic Tsb999 BUN 10 mg/dL 08/01/2018 Comp Metabolic Hoh046 B/C Ratio 10.0 Ratio 08/01/2018 Comp Metabolic Jcy516 CALCIUM 8.9 mg/dL 08/01/2018 Comp Metabolic Tge889 ALK PHOS 68 U/L 08/01/2018 Comp Metabolic Ayl062 AST(SGOT) 18 U/L 08/01/2018 Comp Metabolic Npj406 ALT(SGPT) 14 U/L 08/01/2018 Comp Metabolic Nog323 BILI T 0.5 mg/dL 08/01/2018 Comp Metabolic Lvk812 ALBUMIN 4.0 g/dL 08/01/2018 Comp Metabolic Ish075 TPRO 6.3 g/dL 08/01/2018 Comp Metabolic Xrt766 GLOB 2.3 g/dL 08/01/2018 Comp Metabolic Krf169 A/G Ratio 1.7 Ratio 08/01/2018 Comp Metabolic Skq627 Osmo 279 mOsmo 08/01/2018 Tsh Ord6 TSH (3rd IS) 0.81 uIU/mL 08/01/2018 Cbc With Differential Ord2 WBC 3.99 K/ul 08/01/2018 Cbc With Differential Ord2 RBC 4.50 M/ul 08/01/2018 Cbc With Differential Ord2 HGB 12.3 g/dl 08/01/2018 Cbc With Differential Ord2 HCT 39.2 % 08/01/2018 Cbc With Differential Ord2 Neut% 66.8 % 08/01/2018 Cbc With Differential Ord2 MCV 87.1 fl 08/01/2018 Cbc With Differential Ord2 Lymph% 19.8 % 08/01/2018 Cbc With Differential Ord2 MCH 27.3 pg 08/01/2018 Cbc With Differential Ord2 [place]% 9.8 % 08/01/2018 Cbc With Differential Ord2 MCHC 31.4 pg 08/01/2018 Cbc With Differential Ord2 Eos% 3.3 % 08/01/2018 Cbc With Differential Ord2 PLT 242 K/ul 08/01/2018 Cbc With Differential Ord2 Baso% 0.3 % 08/01/2018 Cbc With Differential Ord2 RDW 16.1 % 08/01/2018 Cbc With Differential Ord2 Neut ABS# 2.67 K/ul 08/01/2018 Cbc With Differential Ord2 Lymph ABS# 0.79 K/ul 08/01/2018 Cbc With Differential Ord2 [place] ABS# 0.4 K/ul 08/01/2018 Cbc With Differential Ord2 Eos ABS# 0.1 K/ul 08/01/2018 Cbc With Differential Ord2 Baso ABS# 0.0 K/ul 08/01/2018 Lipid Ord30 CHOL 234 mg/dL 08/01/2018 Lipid Ord30 HDL 69.0 mg/dl 08/01/2018 Lipid Ord30 TRIG 57 mg/dL 08/01/2018 Lipid Ord30 LDL 154 mg/dL 08/01/2018 Lipid Ord30 C/HDL 3.4 Ratio 08/01/2018 Comp Metabolic Xmc871 NA 137 mEq/L 09/30/2015 Comp Metabolic Phg054 K 4.5 mEq/L 09/30/2015 Comp Metabolic Rip049 CL 102 mEq/L 09/30/2015 Comp Metabolic Sdq861 CO2 26.0 mEq/L 09/30/2015 Comp Metabolic Bby851 ANION GAP 14 09/30/2015 Comp Metabolic Pun836 GLUCOSE 89 mg/dL 09/30/2015 Comp Metabolic Oht003 Creat 0.8 mg/dL 09/30/2015 Comp Metabolic Upj454 eGFR 79 ml/min/1.73m2 09/30/2015 Comp Metabolic Vkq496 BUN 14 mg/dL 09/30/2015 Comp Metabolic Qwg623 B/C Ratio 18.2 Ratio 09/30/2015 Comp Metabolic Pfh294 CALCIUM 8.9 mg/dL 09/30/2015 Comp Metabolic Cxy691 ALK PHOS 65 U/L 09/30/2015 Comp Metabolic Wnu238 AST(SGOT) 26 U/L 09/30/2015 Comp Metabolic Hif428 ALT(SGPT) 18 U/L 09/30/2015 Comp Metabolic Mnh916 BILI T 0.6 mg/dL 09/30/2015 Comp Metabolic Hiv133 ALBUMIN 3.8 g/dL 09/30/2015 Comp Metabolic Uvm077 TPRO 6.6 g/dL 09/30/2015 Comp Metabolic Ckf865 GLOB 2.8 g/dL 09/30/2015 Comp Metabolic Ylu382 A/G Ratio 1.4 Ratio 09/30/2015 Comp Metabolic Xgj083 Osmo 274 mOsmo 09/30/2015 Cbc With Differential [...] 27.7 pg 09/30/2015 Cbc With Differential Ord2 [place]% 10.7 % 09/30/2015 Cbc With Differential Ord2 MCHC 31.5 pg 09/30/2015 Cbc With Differential Ord2 Eos% 3.4 % 09/30/2015 Cbc With Differential Ord2 PLT 212 K/ul 09/30/2015 Cbc With Differential Ord2 Baso% 0.2 % 09/30/2015 Cbc With Differential Ord2 RDW 15.1 % 09/30/2015 Cbc With Differential Ord2 Neut ABS# 3.87 K/ul 09/30/2015 Cbc With Differential Ord2 Lymph ABS# 1.10 K/ul 09/30/2015 Cbc With Differential Ord2 [place] ABS# 0.6 K/ul 09/30/2015 Cbc With Differential Ord2 Eos ABS# 0.2 K/ul 09/30/2015 Cbc With Differential Ord2 Baso ABS# 0.0 K/ul 09/30/2015 Cbc With Differential Ord2 New Analyzer Notice Please note new ref ranges starting 08-07-2015 due to implemntation of new five part differential hematolgy analyzer. 09/30/2015 Tsh Ord6 hTSH II 1.05 uIU/mL 03/06/2015 Comp Metabolic Ggt258 NA 137 mEq/L 03/06/2015 Comp Metabolic Zdl776 K 4.3 mEq/L 03/06/2015 Comp Metabolic Aao441 CL 104 mEq/L 03/06/2015 Comp Metabolic Jls127 CO2 28.0 mEq/L 03/06/2015 Comp Metabolic Ilt815 ANION GAP 9 03/06/2015 Comp Metabolic Sng682 GLUCOSE 93 mg/dL 03/06/2015 Comp Metabolic Agt603 Creat 0.8 mg/dL 03/06/2015 Comp Metabolic Ces008 eGFR 81 ml/min/1.73m2 03/06/2015 Comp Metabolic Ufe126 BUN 12 mg/dL 03/06/2015 Comp Metabolic Arp716 B/C Ratio 16.0 Ratio 03/06/2015 Comp Metabolic Yhl686 CALCIUM 8.9 mg/dL 03/06/2015 Comp Metabolic Kes270 ALK PHOS 56 U/L 03/06/2015 Comp Metabolic Nnd066 AST(SGOT) 22 U/L 03/06/2015 Comp Metabolic Dkj447 ALT(SGPT) 15 U/L 03/06/2015 Comp Metabolic Ell332 BILI T 0.4 mg/dL 03/06/2015 Comp Metabolic Cgp779 ALBUMIN 4.0 g/dL 03/06/2015 Comp Metabolic Owg198 TPRO 6.5 g/dL 03/06/2015 Comp Metabolic Mrz173 GLOB 2.5 g/dL 03/06/2015 Comp Metabolic Pjm491 A/G Ratio 1.6 Ratio 03/06/2015 Comp Metabolic Aij924 Osmo 273 mOsmo 03/06/2015 Vitamin D 25 Oh [id number] VITAMIN D, 25 HYDROXY 28.14 ng/mL Cbc [...] of Systems System Result Effective Dates Constitutional recent illness 09/15/2018 Constitutional No chills 09/15/2018 Constitutional fatigue 09/15/2018 Constitutional No fever 09/15/2018 Constitutional No insomnia 09/15/2018 Constitutional malaise 09/15/2018 Eyes No blindness 09/15/2018 Eyes No vision change 09/15/2018 Ears/Nose/Throat/Neck No dental pain Ears/Nose/Throat/Neck No dizziness 2018 Ears/Nose/Throat/Neck No dysphagia 2018 Ears/Nose/Throat/Neck No headache 2018 Ears/Nose/Throat/Neck No hearing loss Ears/Nose/Throat/Neck No nasal allergies 09/15/2018 Ears/Nose/Throat/Neck No postnasal drip 09/15/2018 Ears/Nose/Throat/Neck No sinus congestion 09/15/2018 Ears/Nose/Throat/Neck No sore throat Cardiovascular No chest pain/pressure Cardiovascular edema 09/15/2018 Cardiovascular exercise intolerance 09/15 Cardiovascular fatigue 09/15/2018 Cardiovascular No near-syncope/dizziness 09/15/2018 Respiratory No productive sputum 2018 Respiratory No chest tightness 2018 Respiratory cough 09/15/2018 Respiratory No dyspnea on exertion 2018 Respiratory No dyspnea 09/15/2018 Respiratory No pedal edema 09/15/2018 Gastrointestinal No abdominal pain 2018 Gastrointestinal constipation 09/15/2018 Gastrointestinal diarrhea 09/15/2018 Gastrointestinal No gastroesophageal reflux 09/15/2018 Gastrointestinal No nausea 09/15/2018 Gastrointestinal No vomiting 09/15/2018 Genitourinary/Nephrology dysuria 2018 Genitourinary/Nephrology No nocturia Genitourinary/Nephrology No urinary incontinence 09/15/2018 Musculoskeletal stiffness 09/15/2018 Musculoskeletal No swelling 09/15/2018 Musculoskeletal back pain 09/15/2018 Musculoskeletal No muscle weakness 2018 Musculoskeletal No myalgias 09/15/2018 Dermatologic No rash 09/15/2018 Dermatologic No sores 09/15/2018 Dermatologic No scar 09/15/2018 Neurologic No dizziness 09/15/2018 Neurologic No headache 09/15/2018 Neurologic No neck pain 09/15/2018 Neurologic No syncope 09/15/2018 Psychiatric No anxiety 09/15/2018 Psychiatric No depression 09/15/2018 Constitutional recent illness 08/15/2018 Constitutional No chills 08/15/2018 Constitutional fatigue 08/15/2018 Constitutional No fever 08/15/2018 Constitutional No insomnia 08/15/2018 Constitutional malaise 08/15/2018 Eyes No blindness 08/15/2018 Eyes No vision change 08/15/2018 Ears/Nose/Throat/Neck No dental pain Ears/Nose/Throat/Neck No dizziness 2018 Ears/Nose/Throat/Neck No dysphagia 2018 Ears/Nose/Throat/Neck No headache 2018 Ears/Nose/Throat/Neck No hearing loss Ears/Nose/Throat/Neck No nasal allergies 08/15/2018 Ears/Nose/Throat/Neck No postnasal drip 08/15/2018 Ears/Nose/Throat/Neck No sinus congestion 08/15/2018 Ears/Nose/Throat/Neck No sore throat Cardiovascular No chest pain/pressure Cardiovascular edema 08/15/2018 Cardiovascular exercise intolerance 08/15 Cardiovascular fatigue 08/15/2018 Cardiovascular No near-syncope/dizziness 08/15/2018 Respiratory No productive sputum 2018 Respiratory No chest tightness 2018 Respiratory cough 08/15/2018 Respiratory No dyspnea on exertion 2018 Respiratory No dyspnea 08/15/2018 Respiratory No pedal edema 08/15/2018 Gastrointestinal No abdominal pain 2018 Gastrointestinal No constipation 2018 Gastrointestinal No diarrhea 08/15/2018 Gastrointestinal No gastroesophageal reflux 08/15/2018 Gastrointestinal No nausea 08/15/2018 Gastrointestinal No vomiting 08/15/2018 Genitourinary/Nephrology No dysuria 08/15 Genitourinary/Nephrology No nocturia Genitourinary/Nephrology No urinary incontinence 08/15/2018 Musculoskeletal stiffness 08/15/2018 Musculoskeletal No swelling 08/15/2018 Musculoskeletal back pain 08/15/2018 Musculoskeletal No muscle weakness 2018 Musculoskeletal No myalgias 08/15/2018 Dermatologic No rash 08/15/2018 Dermatologic No sores 08/15/2018 Dermatologic No scar 08/15/2018 Neurologic No dizziness 08/15/2018 Neurologic No headache 08/15/2018 Neurologic No neck pain 08/15/2018 Neurologic No syncope 08/15/2018 Psychiatric No anxiety 08/15/2018 Psychiatric No depression 08/15/2018 Constitutional recent illness 08/01/2018 Constitutional No chills 08/01/2018 Constitutional fatigue 08/01/2018 Constitutional No fever 08/01/2018 Constitutional No insomnia 08/01/2018 Constitutional malaise 08/01/2018 Eyes No blindness 08/01/2018 Eyes No vision change 08/01/2018 Ears/Nose/Throat/Neck No dental pain 01/2019 Ears/Nose/Throat/Neck No dizziness 2018 Ears/Nose/Throat/Neck No dysphagia 2018 Ears/Nose/Throat/Neck No headache 2018 Ears/Nose/Throat/Neck No hearing loss 01/2019 Ears/Nose/Throat/Neck No nasal allergies 08/01/2018 Ears/Nose/Throat/Neck No sore throat 01/2019 Ears/Nose/Throat/Neck No postnasal drip 08/01/2018 Ears/Nose/Throat/Neck No sinus congestion 08/01/2018 Cardiovascular No chest pain/pressure 01/2019 Cardiovascular edema 08/01/2018 Cardiovascular exercise intolerance 08/01 Cardiovascular fatigue 08/01/2018 Cardiovascular No near-syncope/dizziness 08/01/2018 Respiratory No chest tightness 2018 Respiratory cough 08/01/2018 Respiratory No dyspnea on exertion 2018 Respiratory No dyspnea 08/01/2018 Respiratory No pedal edema 08/01/2018 Gastrointestinal No abdominal pain 2018 Gastrointestinal No constipation 2018 Gastrointestinal No diarrhea 08/01/2018 Gastrointestinal No gastroesophageal reflux 08/01/2018 Gastrointestinal No nausea 08/01/2018 Gastrointestinal No vomiting 08/01/2018 Genitourinary/Nephrology No dysuria 08/01 Genitourinary/Nephrology No nocturia 01/2019 Genitourinary/Nephrology No urinary incontinence 08/01/2018 Musculoskeletal stiffness 08/01/2018 Musculoskeletal No swelling 08/01/2018 Musculoskeletal No muscle weakness 2018 Musculoskeletal No myalgias 08/01/2018 Dermatologic No rash 08/01/2018 Dermatologic No sores 08/01/2018 Dermatologic No scar 08/01/2018 Neurologic No dizziness 08/01/2018 Neurologic No headache 08/01/2018 Neurologic No neck pain 08/01/2018 Neurologic No syncope 08/01/2018 Psychiatric No anxiety 08/01/2018 Psychiatric No depression 08/01/2018 Respiratory No productive sputum 2018 Musculoskeletal back pain 08/01/2018 Constitutional recent illness 04/20/2018 Constitutional fatigue 04/20/2018 Cardiovascular fatigue 04/20/2018 Respiratory cough 04/20/2018 Respiratory dyspnea on exertion 2017 Constitutional No chills 04/20/2018 Constitutional No fever 04/20/2018 Constitutional No insomnia 04/20/2018 Constitutional malaise 04/20/2018 Eyes No blindness 04/20/2018 Eyes No vision change 04/20/2018 Ears/Nose/Throat/Neck No dental pain Ears/Nose/Throat/Neck No dizziness 2017 Ears/Nose/Throat/Neck No dysphagia 2017 Ears/Nose/Throat/Neck No headache 2017 Ears/Nose/Throat/Neck No hearing loss Ears/Nose/Throat/Neck No nasal allergies 04/20/2018 Ears/Nose/Throat/Neck No sore throat Ears/Nose/Throat/Neck No postnasal drip 04/20/2018 Ears/Nose/Throat/Neck No sinus congestion 04/20/2018 Cardiovascular No chest pain/pressure Cardiovascular edema 04/20/2018 Cardiovascular exercise intolerance 04/20 Cardiovascular No near-syncope/dizziness 04/20/2018 Respiratory No chest tightness 2017 Respiratory dyspnea 04/20/2018 Respiratory pedal edema 04/20/2018 Gastrointestinal No abdominal pain 2017 Gastrointestinal No constipation 2017 Gastrointestinal No diarrhea 04/20/2018 Gastrointestinal No gastroesophageal reflux 04/20/2018 Gastrointestinal No nausea 04/20/2018 Gastrointestinal No vomiting 04/20/2018 Genitourinary/Nephrology No dysuria 04/20 Genitourinary/Nephrology No nocturia Genitourinary/Nephrology No urinary incontinence 04/20/2018 Musculoskeletal stiffness 04/20/2018 Musculoskeletal No swelling 04/20/2018 Musculoskeletal No muscle weakness 2017 Musculoskeletal No myalgias 04/20/2018 Dermatologic No rash 04/20/2018 Dermatologic No sores 04/20/2018 Dermatologic No scar 04/20/2018 Neurologic No dizziness 04/20/2018 Neurologic No headache 04/20/2018 Neurologic No neck pain 04/20/2018 Neurologic No syncope 04/20/2018 Psychiatric No anxiety 04/20/2018 Psychiatric No depression 04/20/2018 Constitutional No recent illness 2017 Constitutional No chills 02/09/2018 Constitutional No diaphoresis 02/09/2018 Constitutional No fever 02/09/2018 Eyes No eye erythema 02/09/2018 Ears/Nose/Throat/Neck No nasal discharge 02/09/2018 Cardiovascular No chest pain/pressure Cardiovascular No dyspnea 02/09/2018 Respiratory No cough 02/09/2018 Respiratory No dyspnea 02/09/2018 Neurologic No alteration of consciousness 02/09/2018 Neurologic No mental status change 2017 Constitutional recent illness 12/16/2017 Constitutional No chills 12/16/2017 Constitutional fatigue 12/16/2017 Constitutional No fever 12/16/2017 Constitutional No insomnia 12/16/2017 Constitutional malaise 12/16/2017 Eyes No blindness 12/16/2017 Eyes No vision change 12/16/2017 Ears/Nose/Throat/Neck No dental pain Ears/Nose/Throat/Neck No dizziness 2017 Ears/Nose/Throat/Neck No dysphagia 2017 Ears/Nose/Throat/Neck No headache 2017 Ears/Nose/Throat/Neck No hearing loss Ears/Nose/Throat/Neck No nasal allergies 12/16/2017 Ears/Nose/Throat/Neck No sore throat Ears/Nose/Throat/Neck No postnasal drip 12/16/2017 Ears/Nose/Throat/Neck No sinus congestion 12/16/2017 Cardiovascular No chest pain/pressure Cardiovascular edema 12/16/2017 Cardiovascular exercise intolerance 12/16 Cardiovascular fatigue 12/16/2017 Cardiovascular No near-syncope/dizziness 12/16/2017 Respiratory No chest tightness 2017 Respiratory dyspnea on exertion 2017 Respiratory dyspnea 12/16/2017 Respiratory pedal edema 12/16/2017 Gastrointestinal No abdominal pain 2017 Gastrointestinal No constipation 2017 Gastrointestinal No diarrhea 12/16/2017 Gastrointestinal No gastroesophageal reflux 12/16/2017 Gastrointestinal No nausea 12/16/2017 Gastrointestinal No vomiting 12/16/2017 Genitourinary/Nephrology No dysuria 12/16 Genitourinary/Nephrology No nocturia Genitourinary/Nephrology No urinary incontinence 12/16/2017 Musculoskeletal stiffness 12/16/2017 Musculoskeletal No swelling 12/16/2017 Musculoskeletal No muscle weakness 2017 Musculoskeletal No myalgias 12/16/2017 Dermatologic No rash 12/16/2017 Dermatologic No sores 12/16/2017 Dermatologic No scar 12/16/2017 Neurologic No dizziness 12/16/2017 Neurologic No headache 12/16/2017 Neurologic No neck pain 12/16/2017 Neurologic No syncope 12/16/2017 Psychiatric No anxiety 12/16/2017 Psychiatric No depression 12/16/2017 Constitutional No recent illness 2017 Constitutional No [...] Constitutional general appearance Development: appears stated age 0209/15/2018 None Full Exam - General 1994 Constitutional general appearance Overall: well developed 09/15/2018 None Full Exam - General 1994 Constitutional general appearance Overall: in no acute distress 09/15/2018 None Full Exam - General 1994 Constitutional general appearance Overall: well nourished 09/15/2018 None Full Exam - General 1994 Constitutional general appearance Hygiene/Attention to Grooming: good hygiene 09/15/2018 None Full Exam - General 1994 Eyes conjunctiva /eyelids Overall: conjunctiva clear 09/15/2018 None Full Exam - General 1994 Eyes conjunctiva /eyelids Overall: cornea clear 09/15/2018 None Full Exam - General 1994 Eyes conjunctiva /eyelids Overall: eyelids normal 09/15/2018 None Full Exam - General 1994 Eyes pupils and irises Overall: pupils equal, round, reactive to light and accomodation 09/15/2018 None Full Exam - General 1994 Ears/Nose/Throat otoscopic exam Overall: external auditory canals clear 09/15/2018 None Full Exam - General 1994 Ears/Nose/Throat otoscopic exam Overall: tympanic membranes clear 09/15/2018 None Full Exam - General 1994 Ears/Nose/Throat lips/teeth/gingiva Overall: benign lips 09/15/2018 None Full Exam - General 1994 Ears/Nose/Throat lips/teeth/gingiva Overall: normal dentition 09/15/2018 None Full Exam - General 1994 Ears/Nose/Throat oral cavity/pharynx/larynx Overall: oral mucosa clear 09/15/2018 None Full Exam - General 1994 Ears/Nose/Throat oral cavity/pharynx/larynx Overall: oropharyngeal mucosa clear 09/15/2018 None Full Exam - General 1994 Ears/Nose/Throat oral cavity/pharynx/larynx Overall: hypopharynx benign 09/15/2018 None Full Exam - General 1994 Ears/Nose/Throat oral cavity/pharynx/larynx Overall: no masses 09/15/2018 None Full Exam - General 1994 Respiratory auscultation Overall: breath sounds clear bilaterally 09/15/2018 None Full Exam - General 1994 Respiratory respiratory effort/rhythm Overall: no retractions 09/15/2018 None Full Exam - General 1994 Respiratory respiratory effort/rhythm Overall: normal rate 09/15/2018 None Full Exam - General 1994 Cardiovascular extremities Overall: no clubbing 09/15/2018 None Full Exam - General 1994 Cardiovascular auscultation of heart Overall: regular rate 09/15/2018 None Full Exam - General 1994 Cardiovascular auscultation of heart Overall: normal heart sounds 09/15/2018 None Full Exam - General 1994 Abdomen abdominal exam Overall: no tenderness 09/15/2018 None Full Exam - General 1994 Abdomen abdominal exam Overall: normal bowel sounds 09/15/2018 None Full Exam - General 1994 Lymphatic neck nodes Overall: anterior cervical chain benign 09/15/2018 None Full Exam - General 1994 Lymphatic neck nodes Overall: posterior cervical chain benign 09/15/2018 None Full Exam - General 1994 Musculoskeletal spine, ribs and pelvis Overall: spine benign 09/15/2018 None Full Exam - General 1994 Musculoskeletal spine, ribs and pelvis Overall: sacroiliac joint benign 09/15/2018 None Full Exam - General 1994 Musculoskeletal spine, ribs and pelvis Overall: good posture 09/15/2018 None Full Exam - General 1994 Musculoskeletal head and neck Overall: head atraumatic 09/15/2018 None Full Exam - General 1994 Musculoskeletal head and neck Overall: cervical spine benign 09/15/2018 None Full Exam - General 1994 Neurologic deep tendon reflexes Overall: deep tendon reflexes intact 09/15/2018 None Full Exam - General 1994 Neurologic cranial nerves Overall: crainial nerves 2 - 12 grossly intact 09/15/2018 None Full Exam - General 1994 Psychiatric orientation/consciousness Overall: oriented to person, place and time 09/15/2018 None Full Exam - General 1994 Psychiatric mood and affect Overall: normal mood and affect 09/15/2018 None Full Exam - General 1994 Constitutional general appearance Development: appears stated age 0108/15/2018 None Full Exam - General 1994 Constitutional general appearance Overall: well developed 08/15/2018 None Full Exam - General 1994 Constitutional general appearance Overall: in no acute distress 08/15/2018 None Full Exam - General 1994 Constitutional general appearance Overall: well nourished 08/15/2018 None Full Exam - General 1994 Constitutional general appearance Hygiene/Attention to Grooming: good hygiene 08/15/2018 None Full Exam - General 1994 Eyes conjunctiva /eyelids Overall: conjunctiva clear 08/15/2018 None Full Exam - General 1994 Eyes conjunctiva /eyelids Overall: cornea clear 08/15/2018 None Full Exam - General 1994 Eyes conjunctiva /eyelids Overall: eyelids normal 08/15/2018 None Full Exam - General 1994 Eyes pupils and irises Overall: pupils equal, round, reactive to light and accomodation 08/15/2018 None Full Exam - General 1994 Ears/Nose/Throat otoscopic exam Overall: external auditory canals clear 08/15/2018 None Full Exam - General 1994 Ears/Nose/Throat otoscopic exam Overall: tympanic membranes clear 08/15/2018 None Full Exam - General 1994 Ears/Nose/Throat lips/teeth/gingiva Overall: benign lips 08/15/2018 None Full Exam - General 1994 Ears/Nose/Throat lips/teeth/gingiva Overall: normal dentition 08/15/2018 None Full Exam - General 1994 Ears/Nose/Throat oral cavity/pharynx/larynx Overall: oral mucosa clear 08/15/2018 None Full Exam - General 1994 Ears/Nose/Throat oral cavity/pharynx/larynx Overall: oropharyngeal mucosa clear 08/15/2018 None Full Exam - General 1994 Ears/Nose/Throat oral cavity/pharynx/larynx Overall: hypopharynx benign 08/15/2018 None Full Exam - General 1994 Ears/Nose/Throat oral cavity/pharynx/larynx Overall: no masses 08/15/2018 None Full Exam - General 1994 Respiratory auscultation Overall: breath sounds clear bilaterally 08/15/2018 None Full Exam - General 1994 Respiratory respiratory effort/rhythm Overall: no retractions 08/15/2018 None Full Exam - General 1994 Respiratory respiratory effort/rhythm Overall: normal rate 08/15/2018 None Full Exam - General 1994 Cardiovascular extremities Overall: no clubbing 08/15/2018 None Full Exam - General 1994 Cardiovascular auscultation of heart Overall: regular rate 08/15/2018 None Full Exam - General 1994 Cardiovascular auscultation of heart Overall: normal heart sounds 08/15/2018 None Full Exam - General 1994 Abdomen abdominal exam Overall: no tenderness 08/15/2018 None Full Exam - General 1994 Abdomen abdominal exam Overall: normal bowel sounds 08/15/2018 None Full Exam - General 1994 Lymphatic neck nodes Overall: anterior cervical chain benign 08/15/2018 None Full Exam - General 1994 Lymphatic neck nodes Overall: posterior cervical chain benign 08/15/2018 None Full Exam - General 1994 Musculoskeletal spine, ribs and pelvis Overall: spine benign 08/15/2018 None Full Exam - General 1994 Musculoskeletal spine, ribs and pelvis Overall: sacroiliac joint benign 08/15/2018 None Full Exam - General 1994 Musculoskeletal spine, ribs and pelvis Overall: good posture 08/15/2018 None Full Exam - General 1994 Musculoskeletal head and neck Overall: head atraumatic 08/15/2018 None Full Exam - General 1994 Musculoskeletal head and neck Overall: cervical spine benign 08/15/2018 None Full Exam - General 1994 Neurologic deep tendon reflexes Overall: deep tendon reflexes intact 08/15/2018 None Full Exam - General 1994 Neurologic cranial nerves Overall: crainial nerves 2 - 12 grossly intact 08/15/2018 None Full Exam - General 1994 Psychiatric orientation/consciousness Overall: oriented to person, place and time 08/15/2018 None Full Exam - General 1994 Psychiatric mood and affect Overall: normal mood and affect 08/15/2018 None Full Exam - General 1994 Constitutional general appearance Development: appears stated age 0108/01/2018 None Full Exam - General 1994 Constitutional general appearance Overall: well developed 08/01/2018 None Full Exam - General 1994 Constitutional general appearance Overall: in no acute distress 08/01/2018 None Full Exam - General 1994 Constitutional general appearance Overall: well nourished 08/01/2018 None Full Exam - General 1994 Constitutional general appearance Hygiene/Attention to Grooming: good hygiene 08/01/2018 None Full Exam - General 1994 Eyes conjunctiva /eyelids Overall: conjunctiva clear 08/01/2018 None Full Exam - General 1994 Eyes conjunctiva /eyelids Overall: cornea clear 08/01/2018 None Full Exam - General 1994 Eyes conjunctiva /eyelids Overall: eyelids normal 08/01/2018 None Full Exam - General 1994 Eyes pupils and irises Overall: pupils equal, round, reactive to light and accomodation 08/01/2018 None Full Exam - General 1994 Ears/Nose/Throat otoscopic exam Overall: external auditory canals clear 08/01/2018 None Full Exam - General 1994 Ears/Nose/Throat otoscopic exam Overall: tympanic membranes clear 08/01/2018 None Full Exam - General 1995 Ears/Nose/Throat lips/teeth/gingiva Overall: benign lips 08/01/2018 None Full Exam - General 1994 Ears/Nose/Throat lips/teeth/gingiva Overall: normal dentition 08/01/2018 None Full Exam - General 1994 Ears/Nose/Throat oral cavity/pharynx/larynx Overall: oral mucosa clear 08/01/2018 None Full Exam - General 1994 Ears/Nose/Throat oral cavity/pharynx/larynx Overall: oropharyngeal mucosa clear 08/01/2018 None Full Exam - General 1994 Ears/Nose/Throat oral cavity/pharynx/larynx Overall: hypopharynx benign 08/01/2018 None Full Exam - General 1994 Ears/Nose/Throat oral cavity/pharynx/larynx Overall: no masses 08/01/2018 None Full Exam - General 1994 Respiratory auscultation Overall: breath sounds clear bilaterally 08/01/2018 None Full Exam - General 1994 Respiratory respiratory effort/rhythm Overall: no retractions 08/01/2018 None Full Exam - General 1994 Respiratory respiratory effort/rhythm Overall: normal rate 08/01/2018 None Full Exam - General 1994 Cardiovascular extremities Overall: no clubbing 08/01/2018 None Full Exam - General 1994 Abdomen abdominal exam Overall: no tenderness 08/01/2018 None Full Exam - General 1994 Abdomen abdominal exam Overall: normal bowel sounds 08/01/2018 None Full Exam - General 1994 Lymphatic neck nodes Overall: anterior cervical chain benign 08/01/2018 None Full Exam - General 1994 Lymphatic neck nodes Overall: posterior cervical chain benign 08/01/2018 None Full Exam - General 1994 Musculoskeletal spine, ribs and pelvis Overall: spine benign 08/01/2018 None Full Exam - General 1994 Musculoskeletal spine, ribs and pelvis Overall: sacroiliac joint benign 08/01/2018 None Full Exam - General 1994 Musculoskeletal spine, ribs and pelvis Overall: good posture 08/01/2018 None Full Exam - General 1995 Musculoskeletal head and neck Overall: head atraumatic 08/01/2018 None Full Exam - General 1994 Musculoskeletal head and neck Overall: cervical spine benign 08/01/2018 None Full Exam - General 1995 Neurologic deep tendon reflexes Overall: deep tendon reflexes intact 08/01/2018 None Full Exam - General 1995 Neurologic cranial nerves Overall: crainial nerves 2 - 12 grossly intact 08/01/2018 None Full Exam - General 1994 Psychiatric orientation/consciousness Overall: oriented to person, place and time 08/01/2018 None Full Exam - General 1994 Psychiatric mood and affect Overall: normal mood and affect 08/01/2018 None Full Exam - General 1994 Cardiovascular auscultation of heart Overall: regular rate 08/01/2018 None Full Exam - General 1994 Cardiovascular auscultation of heart Overall: normal heart sounds 08/01/2018 None Full Exam - General 1994 Constitutional general appearance Overall: well nourished 04/20/2018 None Full Exam - General 1994 Constitutional general appearance Overall: well developed 04/20/2018 None Full Exam - General 1994 Constitutional general appearance Overall: in no acute distress 04/20/2018 None Full Exam - General 1994 Ears/Nose/Throat otoscopic exam Overall: tympanic membranes clear 04/20/2018 None Full Exam - General 1994 Ears/Nose/Throat otoscopic exam Overall: external auditory canals clear 04/20/2018 None Full Exam - General 1994 Ears/Nose/Throat oral cavity/pharynx/larynx Overall: oropharyngeal mucosa clear 04/20/2018 None Full Exam - General 1994 Ears/Nose/Throat oral cavity/pharynx/larynx Overall: no masses 04/20/2018 None Full Exam - General 1995 Ears/Nose/Throat oral cavity/pharynx/larynx Overall: oral mucosa clear 04/20/2018 None Full Exam - General 1994 Constitutional general appearance Development: appears stated age 0904/20/2018 None Full Exam - General 1994 Constitutional general appearance Hygiene/Attention to Grooming: good hygiene 04/20/2018 None Full Exam - General 1994 Eyes conjunctiva /eyelids Overall: conjunctiva clear 04/20/2018 None Full Exam - General 1994 Eyes conjunctiva /eyelids Overall: cornea clear 04/20/2018 None Full Exam - General 1994 Eyes conjunctiva /eyelids Overall: eyelids normal 04/20/2018 None Full Exam - General 1994 Eyes pupils and irises Overall: pupils equal, round, reactive to light and accomodation 04/20/2018 None Full Exam - General 1994 Ears/Nose/Throat lips/teeth/gingiva Overall: benign lips 04/20/2018 None Full Exam - General 1994 Ears/Nose/Throat lips/teeth/gingiva Overall: normal dentition 04/20/2018 None Full Exam - General 1994 Ears/Nose/Throat oral cavity/pharynx/larynx Overall: hypopharynx benign 04/20/2018 None Full Exam - General 1994 Respiratory auscultation Overall: breath sounds clear bilaterally 04/20/2018 None Full Exam - General 1994 Respiratory respiratory effort/rhythm Overall: no retractions 04/20/2018 None Full Exam - General 1994 Respiratory respiratory effort/rhythm Overall: normal rate 04/20/2018 None Full Exam - General 1994 Cardiovascular extremities Overall: no clubbing 04/20/2018 None Full Exam - General 1994 Cardiovascular auscultation of heart Rate: tachycardia 04/20/2018 None Full Exam - General 1994 Cardiovascular auscultation of heart Rhythm: irregularly irregular rhythm 04/20/2018 None Full Exam - General 1994 Abdomen abdominal exam Overall: no tenderness 04/20/2018 None Full Exam - General 1994 Abdomen abdominal exam Overall: normal bowel sounds 04/20/2018 None Full Exam - General 1994 Lymphatic neck nodes Overall: anterior cervical chain benign 04/20/2018 None Full Exam - General 1994 Lymphatic neck nodes Overall: posterior cervical chain benign 04/20/2018 None Full Exam - General 1994 Musculoskeletal spine, ribs and pelvis Overall: spine benign 04/20/2018 None Full Exam - General 1994 Musculoskeletal spine, ribs and pelvis Overall: sacroiliac joint benign 04/20/2018 None Full Exam - General 1994 Musculoskeletal spine, ribs and pelvis Overall: good posture 04/20/2018 None Full Exam - General 1994 Musculoskeletal head and neck Overall: head atraumatic 04/20/2018 None Full Exam - General 1994 Musculoskeletal head and neck Overall: cervical spine benign 04/20/2018 None Full Exam - General 1994 Neurologic deep tendon reflexes Overall: deep tendon reflexes intact 04/20/2018 None Full Exam - General 1994 Neurologic cranial nerves Overall: crainial nerves 2 - 12 grossly intact 04/20/2018 None Full Exam - General 1994 Psychiatric orientation/consciousness Overall: oriented to person, place and time 04/20/2018 None Full Exam - General 1994 Psychiatric mood and affect Overall: normal mood and affect 04/20/2018 None Full Exam - General 1994 Constitutional general appearance Overall: well developed 02/09/2018 None Full Exam - General 1994 Constitutional general appearance Overall: in no acute distress 02/09/2018 None Full Exam - General 1994 Constitutional general appearance Overall: well nourished 02/09/2018 None Full Exam - General 1994 Eyes conjunctiva /eyelids Overall: conjunctiva clear 02/09/2018 None Full Exam - General 1994 Eyes conjunctiva /eyelids Overall: eyelids normal 02/09/2018 None Full Exam - General 1994 Ears/Nose/Throat lips/teeth/gingiva Overall: benign lips 02/09/2018 None Full Exam - General 1994 Respiratory respiratory effort/rhythm Overall: no retractions 02/09/2018 None Full Exam - General 1994 Respiratory respiratory effort/rhythm Overall: normal rate 02/09/2018 None Full Exam - General 1994 Musculoskeletal head and neck Overall: head atraumatic 02/09/2018 None Full Exam - General 1994 Neurologic cranial nerves Overall: crainial nerves 2 - 12 grossly intact 02/09/2018 None Full Exam - General 1994 Psychiatric orientation/consciousness Overall: oriented to person, place and time 02/09/2018 None Full Exam - General 1994 Psychiatric mood and affect Overall: normal mood and affect 02/09/2018 None Full Exam - General 1994 Psychiatric appearance Overall: well-groomed, good eye contact 02/09/2018 None Full Exam - General 1994 Constitutional general appearance Development: well developed 12/16/2017 None Full Exam - General 1994 Constitutional general appearance Development: appears stated age 0512/16/2017 None Full Exam - General 1994 Constitutional general appearance Hygiene/Attention to Grooming: good hygiene 12/16/2017 None Full Exam - General 1994 Eyes conjunctiva /eyelids Overall: conjunctiva clear 12/16/2017 None Full Exam - General 1994 Eyes conjunctiva /eyelids Overall: cornea clear 12/16/2017 None Full Exam - General 1994 Eyes conjunctiva /eyelids Overall: eyelids normal 12/16/2017 None Full Exam - General 1994 Eyes pupils and irises Overall: pupils equal, round, reactive to light and accomodation 12/16/2017 None Full Exam - General 1994 Ears/Nose/Throat otoscopic exam Overall: external auditory canals clear 12/16/2017 None Full Exam - General 1994 Ears/Nose/Throat otoscopic exam Overall: tympanic membranes clear 12/16/2017 None Full Exam - General 1994 Ears/Nose/Throat lips/teeth/gingiva Overall: benign lips 12/16/2017 None Full Exam - General 1994 Ears/Nose/Throat lips/teeth/gingiva Overall: normal dentition 12/16/2017 None Full Exam - General 1994 Ears/Nose/Throat oral cavity/pharynx/larynx Overall: oral mucosa clear 12/16/2017 None Full Exam - General 1994 Ears/Nose/Throat oral cavity/pharynx/larynx Overall: oropharyngeal mucosa clear 12/16/2017 None Full Exam - General 1994 Ears/Nose/Throat oral cavity/pharynx/larynx Overall: hypopharynx benign 12/16/2017 None Full Exam - General 1994 Ears/Nose/Throat oral cavity/pharynx/larynx Overall: no masses 12/16/2017 None Full Exam - General 1994 Respiratory auscultation Overall: breath sounds clear bilaterally 12/16/2017 None Full Exam - General 1994 Respiratory respiratory effort/rhythm Overall: no retractions 12/16/2017 None Full Exam - General 1994 Respiratory respiratory effort/rhythm Overall: normal rate 12/16/2017 None Full Exam - General 1994 Cardiovascular extremities Overall: no clubbing 12/16/2017 None Full Exam - General 1994 Cardiovascular auscultation of heart Rate: tachycardia 12/16/2017 None Full Exam - General 1994 Cardiovascular auscultation of heart Rhythm: irregularly irregular rhythm 12/16/2017 None Full Exam - General 1994 Abdomen abdominal exam Overall: no tenderness 12/16/2017 None Full Exam - General 1994 Abdomen abdominal exam Overall: normal bowel sounds 12/16/2017 None Full Exam - General 1994 Lymphatic neck nodes Overall: anterior cervical chain benign 12/16/2017 None Full Exam - General 1994 Lymphatic neck nodes Overall: posterior cervical chain benign 12/16/2017 None Full Exam - General 1994 Musculoskeletal spine, ribs and pelvis Overall: spine benign 12/16/2017 None Full Exam - General 1994 Musculoskeletal spine, ribs and pelvis Overall: sacroiliac joint benign 12/16/2017 None Full Exam - General 1994 Musculoskeletal spine, ribs and pelvis Overall: good posture 12/16/2017 None Full Exam - General 1994 Musculoskeletal head and neck Overall: head atraumatic 12/16/2017 None Full Exam - General 1994 Musculoskeletal head and neck Overall: cervical spine benign 12/16/2017 None Full Exam - General 1994 Neurologic deep tendon reflexes Overall: deep tendon reflexes intact 12/16/2017 None Full Exam - General 1994 Neurologic cranial nerves Overall: crainial nerves 2 - 12 grossly intact 12/16/2017 None Full Exam - General 1994 Psychiatric orientation/consciousness Overall: oriented to person, place and time 12/16/2017 None Full Exam - General 1994 Psychiatric mood and affect Overall: normal mood and affect 12/16/2017 None Full Exam - General 1994 Constitutional [...] affect 03/06/2015 None Procedures Procedure Codes Date URINALYSIS NONAUTO W/O SCOPE CPT-4: 00005 08/18/2018 ADMIN INFLUENZA VIRUS VAC CPT-4: G0008 04/20/2018 FLU VACC PRSV FREE INC ANTIG Formatting Model/CDA Sections, Assigned to/Amparo Mims CPT-4: [id number] 04/20/2018 PPPS, SUBSEQ VISIT CPT -4: G0439 02/09/2018 PPPS, SUBSEQ VISIT CPT -4: G0439 02/03/2017 ADMIN INFLUENZA VIRUS VAC CPT-4: G0008 04/08/2016 ADMIN PNEUMOCOCCAL VACCINE SNOMED CT: 38308579 CPT-4: G0009 04/08/2016 PNEUMOCOCCAL VACC [address]: 81592042 CPT-4: 92239 04/08/2016 FLU VACC PRSV FREE INC ANTIG CPT-4: 87037 04/08/2016 Vital Signs Date Vital 09/15/2018 Blood Pressure 1: 154/86 Code : 8480-6 BMI: 42.9 Code : 11744-9 Heart Rate 1 : 88 bpm Height: 5'7" SpO2: 94% Weight: 274 lbs 08/15/2018 Blood Pressure 1: 140/90 Code : 8480-6 BMI: 40.7 Code : 63048-7 Heart Rate 1 : 70 bpm Height: 5'7" SpO2: 93% Weight: 260 lbs 08/01/2018 Blood Pressure 1: 130/70 Code : 8480-6 BMI: 40.7 Code : 51087-1 Heart Rate 1 : 80 bpm Height: 5'7" SpO2: 93% Weight: 260 lbs 04/20/2018 Blood Pressure 1: 128/68 Code : 8480-6 BMI: 41.7 Code : 26629-7 Heart Rate 1 : 85 bpm Height: 5'7" SpO2: 94% Weight: 266 lbs 02/09/2018 Blood Pressure 1: 118/70 Code : 8480-6 BMI: 42.1 Code : 90202-5 Heart Rate 1 : 58 bpm Height: 5'7" SpO2: 94% Weight: 269 lbs 12/16/2017 Blood Pressure 1: 132/86 Code : 8480-6 BMI: 42.7 Code : 78592-4 Heart Rate 1 : 63 bpm Height: 5'7" SpO2: 94% Weight: 272 lbs 14 oz 08/23/2017 Blood Pressure 1: 150/82 Code : 8480-6 BMI: 42.0 Code : 55863-3 Heart Rate 1 : 66 bpm Height: 5'7" SpO2: 96% Weight: 268 lbs 02/03/2017 Blood Pressure 1: 138/72 Code : 8480-6 BMI: 41.2 Code : 96116-0 Heart Rate 1 : 96 bpm Height: 5'7" SpO2: 97% Weight: 263 lbs 02/02/2017 Blood Pressure 1: 140/90 Code : 8480-6 BMI: 41.2 Code : 37746-6 Heart Rate 1 : 103 bpm Height: 5'7" SpO2: 94% Weight: 263 lbs 11/26/2016 Blood Pressure 1: 152/88 Code : 8480-6 BMI: 41.0 Code : 84582-5 Heart Rate 1 : 71 bpm Height: 5'7" SpO2: 94% Temperature: 37.7 (C) / 99.8 (F) Weight: 262 lbs 10/07/2016 Blood Pressure 1: 148/82 Code : 8480-6 BMI: 41.7 Code : 93580-6 Heart Rate 1 : 58 bpm Height: 5'7" SpO2: 96% Weight: 266 lbs 09/16/2016 Blood Pressure 1: 122/70 Code : 8480-6 BMI: 42.0 Code : 56582-3 Heart Rate 1 : 65 bpm Height: 5'7" SpO2: 96% Weight: 268 lbs 09/07/2016 Blood Pressure 1: 154/60 Code : 8480-6 BMI: 42.3 Code : 51958-5 Heart Rate 1 : 101 bpm Height: 5'7" SpO2: 97% Weight: 270 lbs 04/08/2016 Blood Pressure 1: 128/70 Code : 8480-6 BMI: 41.4 Code : 77627-5 Heart Rate 1 : 62 bpm Height: 5'7" SpO2: 95% Weight: 264 lbs 8 oz 03/05/2016 Blood Pressure 1: 144/78 Code : 8480-6 Blood Pressure 1: 139/72 Code: 8480-6 BMI: 41.9 Code: 70197-0 Heart Rate 1: 71 bpm Height: 5'7" SpO2: 93% Weight: 267 lbs 8 oz 12/04/2015 Blood Pressure 1: 132/70 Code : 8480-6 BMI: 41.3 Code : 59678-4 Heart Rate 1 : 56 bpm Height: 5'7" SpO2: 96% Weight: 264 lbs 11/18/2015 Blood Pressure 1: 138/72 Code : 8480-6 BMI: 41.0 Code : 56277-0 Heart Rate 1 : 85 bpm Height: 5'7" SpO2: 93% Weight: 262 lbs 09/30/2015 Blood Pressure 1: 128/76 Code : 8480-6 BMI: 41.2 Code : 49342-0 Heart Rate 1 : 70 bpm Height: 5'7" SpO2: 93% Weight: 263 lbs 09/09/2015 Blood Pressure 1: 138/80 Code : 8480-6 BMI: 40.3 Code : 15472-3 Heart Rate 1 : 84 bpm Height: 5'7" SpO2: 95% Weight: 257 lbs 08/28/2015 Blood Pressure 1: 122/72 Code : 8480-6 BMI: 39.6 Code : 52161-1 Heart Rate 1 : 75 bpm Height: 5'7" SpO2: 96% Weight: 253 lbs 07/09/2015 Blood Pressure 1: 140/78 Code : 8480-6 Blood Pressure 1: 135/78 Code: 8480-6 BMI: 39.5 Code: 88678-8 Heart Rate 1: 62 bpm Height: 5'7" SpO2: 95% Weight: 252 lbs 03/06/2015 Blood Pressure 1: 142/88 Code : 8480-6 BMI: 39.3 Code : 26896-8 Heart Rate 1 : 65 bpm Height: 5'7" SpO2: 95% Weight: 251 lbs Functional Status No Functional Status data History of Present Illness Symptom Name Status Result Effective Date Notes Quality chronic 09/15 None Quality primary hypertension 09/15/2018 None Onset and Resolution ongoing 09/15/2018 None Onset of Symptom during adulthood 09/15/2018 None Alleviating Factors medication 09/15/2018 None Blood Pressure Values patient checking blood pressure at home - did not bring in readings 2018 None Significant Medical Conditions cardiac disease 09/15/2018 None Initial treatment physical therapy 09/15/2018 None Pertinent Findings dizziness 09/15/2018 None Pertinent Findings dyspnea 09/15/2018 None Pertinent Findings edema 09/15/2018 None Quality intermittent 09/15/2018 None Onset and Resolution ongoing 09/15/2018 None Quality chronic 09/15 None Onset of Symptom Denies 2+ years ago 09/15/2018 None Location on both sides 09/15/2018 None Alleviating Factors rest 09/15/2018 None Exacerbating Factors changing position 09/15/2018 None Exacerbating Factors standing or walking 09/15/2018 None Exacerbating Factors activity 09/15/2018 None Initial treatment stretching 09/15/2018 None Quality chronic 08/15 None Onset and Resolution ongoing 08/15/2018 None Onset of Symptom during adulthood 08/15/2018 None Blood Pressure Values not checking blood pressure at home 08/15/2018 None Severity mild 2018 None Frequency of Episodes unchanged 08/15/2018 None Triggers no known associated factors 08/15/2018 None Alleviating Factors medication 08/15/2018 None Significant Medical Conditions cardiac disease 08/15/2018 None Location in the throat 08/01/2018 None Quality dry 2018 None Quality intermittent 08/01/2018 None Onset and Resolution ongoing 08/01/2018 None Onset of Symptom 3 months ago 08/01/2018 None Pertinent Findings chest discomfort 08/01/2018 None Pertinent Findings Denies fever 08/01/2018 None hypertension Quality primary hypertension 04/20/2018 None hypertension Onset and Resolution ongoing 04/20/2018 None hypertension Onset of Symptom during adulthood 04/20/2018 None hypertension Alleviating Factors medication 04/20/2018 None hypertension Pertinent Findings Denies dizziness 04/20/2018 None hypertension Pertinent Findings dyspnea 04/20/2018 None hypertension Pertinent Findings edema 04/20/2018 occasionally hypertension Pertinent Findings palpitations 04/20/2018 None arrhythmia Quality intermittent 04/20/2018 None arrhythmia Quality irregular beats 04/20/2018 (atrial fibrillation) arrhythmia Alleviating Factors medication 04/20/2018 None hypertension Quality chronic 04/20/2018 None arrhythmia Quality chronic 04/20/2018 None hypertension Blood Pressure Values not checking blood pressure at home 04/20/2018 None Annual Medicare Wellness Exam Describe Your Health poor 02/09/2018 None Annual Medicare Wellness Exam Exercise Habits exercises 1 days per week 02/09/2018 None Annual Medicare Wellness Exam Handling Stress usually dulce effectively 02/09/2018 None Annual Medicare Wellness Exam Alcohol Use does not drink any alcohol 02/09/2018 None Annual Medicare Wellness Exam Aspirin Use no 02/09/2018 None Annual Medicare Wellness Exam Blood Glucose (self reported) desireable (below 100) 02/09/2018 None Annual Medicare Wellness Exam Blood Pressure (self reported ) diagnosed with hypertension 02/09/2018 None Annual Medicare Wellness Exam Cholesterol (self reported) don't know 02/09/2018 None Annual Medicare Wellness Exam Depression (last 6 months) some of the time 02/09/2018 None Annual Medicare Wellness Exam Depression or Hopelessness some of the time 02/09/2018 None Annual Medicare Wellness Exam Hemaglobin A-1C (self reported ) don't know 02/09/2018 None Annual Medicare Wellness Exam Interaction with Friends yes 02/09/2018 None Annual Medicare Wellness Exam Interests & Pleasure almost all of the time 02/09/2018 None Annual Medicare Wellness Exam Life Satisfaction satisfied 02/09/2018 None Annual Medicare Wellness Exam Motor Vehicle Safety always fastens seat belt: y 02/09/2018 None Annual Medicare Wellness Exam Motor Vehicle Safety drives after drinking: n 02/09/2018 None Annual Medicare Wellness Exam Motor Vehicle Safety rides with someone who has been drinking: n 2017 None Annual Medicare Wellness Exam Smoking and Tobacco Use non smoker 02/09/2018 None Annual Medicare Wellness Exam Social & Emotional Support always 02/09/2018 None Annual Medicare Wellness Exam Stress some of the time 02/09/2018 None Annual Medicare Wellness Exam Sun Exposure protects skin when outdoors: y 02/09/2018 None Annual Medicare Wellness Exam Hours of Sleep 5 02/09/2018 None Annual Medicare Wellness Exam Nutrition servings of fried food / high fat foods per day: 0 2017 1-2 Annual Medicare Wellness Exam Nutrition servings of vegetables / fruit per day: 2-3 02/09/2018 None hypertension Quality primary hypertension 12/16/2017 None hypertension Onset and Resolution ongoing 12/16/2017 None hypertension Onset of Symptom during adulthood 12/16/2017 None hypertension Blood Pressure Values patient checking blood pressure at home - did not bring in readings 12/16/2017 -Reports that it has been around 135/80 at home hypertension Alleviating Factors medication 12/16/2017 None hypertension Pertinent Findings Denies dizziness 12/16/2017 None hypertension Pertinent Findings dyspnea 12/16/2017 None hypertension Pertinent Findings Denies edema 12/16/2017 None arrhythmia Quality intermittent 12/16/2017 None arrhythmia Quality irregular beats 12/16/2017 (atrial fibrillation) arrhythmia Onset and Resolution ongoing 12/16/2017 None arrhythmia Alleviating Factors medication 12/16/2017 None hypertension Pertinent Findings Denies decreased energy 12/16/2017 None hypertension Pertinent Findings Denies anxiety 12/16/2017 None hypertension Pertinent Findings palpitations 12/16/2017 None hypertension Quality primary hypertension 08/23/2017 None hypertension [...] data Encounters Encounter Performer Location Codes Date ([id number]) [id number] EST. PATIENT, LEVEL IV Diagnosis: Essential (primary) hypertension[ICD10: I10] Diagnosis: Dysuria[ICD10: R30.0] Diagnosis: Low back pain[ICD10: M54.5] Alis Spring MD, [facility] CPT-4: 86960 09/15/2018 [id number]) 08698 EST. PATIENT, LEVEL III Diagnosis: Essential (primary) hypertension[ICD10: I10] Diagnosis: Low back pain[ICD10: M54.5] Alis Spring MD, [facility] CPT-4: 49824 08/15/2018 [id number]) 94262 EST. PATIENT, LEVEL III Diagnosis: Essential (primary) hypertension[ICD10: I10] Diagnosis: Cough[ICD10: R05] Diagnosis: Low back pain[ICD10: M54.5] Alis Spring MD, [facility] CPT-4: 09353 08/01/2018 [id number]) 80408 EST. PATIENT, LEVEL IV Diagnosis: Encounter for immunization[ICD10: Z23] Diagnosis: Essential (primary) hypertension[ICD10: I10] Diagnosis: Chronic atrial fibrillation[ICD10: I48.2] Diagnosis: Major depressive disorder, recurrent, mild[ICD10: F33.0] Scarlett Spring MD, [facility] CPT-4: 93193 04/20/2018 ([id number]) 89718 EST. PATIENT, LEVEL IV Diagnosis: Essential (primary) hypertension[ICD10: I10] Diagnosis: Obstructive sleep apnea (adult) (pediatric)[ICD10: G47.33] Diagnosis: Chronic atrial fibrillation[ICD10: I48.2] Scarlett Spring MD, [facility] CPT-4: 73708 12/16/2017 [id number]) 01179 EST. PATIENT, LEVEL IV Diagnosis: Essential (primary) hypertension[ICD10: I10] Diagnosis: Chronic atrial fibrillation[ICD10: I48.2] Scarlett Spring MD, [facility] CPT-4: 81007 08/23/2017 ([id number]) 56544 EST. PATIENT, LEVEL IV Diagnosis: Paroxysmal atrial fibrillation[ICD10: I48.0] Diagnosis: Essential (primary) hypertension[ICD10: I10] Scarlett Spring MD, [facility] CPT-4: 75654 02/02/2017 99253 EST. PATIENT, LEVEL III Diagnosis: Acute laryngopharyngitis[ICD10: J06.0] Diagnosis: Cough[ICD10: R05] Diagnosis: Pleurodynia[ICD10: R07.81] Diagnosis: Other dorsalgia[ICD10: M54.89] Kassandra Spring MD, [facility] CPT-4 : 75243 11/26/2016 ([id number]) 21041 EST. PATIENT, LEVEL IV Diagnosis: Essential (primary) hypertension[ICD10: I10] Diagnosis: Pain in left knee[ICD10: M25.562] Diagnosis: Low back pain[ICD10: M54.5] Diagnosis: Major depressive disorder, recurrent, moderate[ICD10: F33.1] Scarlett Spring MD, [facility] CPT-4: 56364 10/07/2016 ([id number]) 07589 EST. PATIENT, LEVEL IV Diagnosis: Essential (primary) hypertension[ICD10: I10] Diagnosis: Rash and other nonspecific skin eruption[ICD10: R21] Diagnosis: Major depressive disorder, recurrent, mild[ICD10: F33.0] Scarlett Spring MD, [facility] CPT-4: 09056 09/16/2016 29512 EST. PATIENT, LEVEL IV Diagnosis: Pain in left lower leg[ICD10: M79.662] Diagnosis: Pain in left knee[ICD10: M25.562] [facility] CPT -4: 40707 09/07/2016 ([id number]) 13013 EST. PATIENT, LEVEL IV Diagnosis: Encounter for immunization[ICD10: Z23] Diagnosis: Essential (primary) hypertension[ICD10: I10] Diagnosis: Mixed hyperlipidemia[ICD10: E78.2] Scarlett Spring MD, [facility] CPT-4: 75233 04/08/2016 ([id number]) 21311 EST. PATIENT, LEVEL III Diagnosis: Essential (primary) hypertension[ICD10: I10] Diagnosis: Shortness of breath[ICD10: R06.02] Scarlett Spring MD [facility] CPT-4: 86196 03/05/2016 ([id number]) 01136 EST. PATIENT, LEVEL III Diagnosis: Chronic obstructive pulmonary disease, unspecified[ICD10: J44.9] Scarlett Spring MD [facility] CPT-4: 66803 12/04/2015 ([id number]) 12939 EST. PATIENT, LEVEL IV Diagnosis: Essential (primary) hypertension[ICD10: I10] Diagnosis: Allergic rhinitis due to pollen[ICD10: J30.1] Scarlett Spring MD [facility] CPT-4: 34324 11/18/2015 ([id number]) 07958 EST. PATIENT, LEVEL IV Diagnosis: Localized edema[ICD10: R60.0] Diagnosis: Dysuria[ICD10: R30.0] Diagnosis: Essential (primary) hypertension[ICD10: I10] Diagnosis: Nausea[ICD10: R11.0] Alis Spring MD [facility] CPT-4: 86217 09/30/2015 ([id number]) 27310 EST. PATIENT, LEVEL II Diagnosis: Methicillin susceptible Staphylococcus aureus infection as the cause of diseases classified elsewhere[ICD10: B95.61] Diagnosis: Methicillin susceptible Staphylococcus aureus infection, unspecified site[ICD10: A49.01] Alis Spring MD [facility] CPT-4: 27326 09/09/2015 ([id number]) 33948 EST. PATIENT, LEVEL III Diagnosis: Dermatophytosis, unspecified[ICD10: B35.9] Diagnosis: Rash and other nonspecific skin eruption[ICD10: R21] Scarlett Spring MD [facility] CPT-4: 63337 08/28/2015 ([id number]) 32476 EST. PATIENT, LEVEL IV Diagnosis: Essential (primary) hypertension[ICD10: I10] Diagnosis: Gastro-esophageal reflux disease without esophagitis[ICD10: K21.9] Diagnosis: Other dorsalgia[ICD10: M54.89] Scarlett Spring MD [facility] CPT- 4: 05818 07/09/2015 ([id number]) OFFICE VISIT, NEW - LEVEL 4 Diagnosis: ESSENTIAL HYPERTENSION[ICD9: 401.9] Diagnosis: Osteoporosis[ICD9: 733.00] Diagnosis: Back pain[ICD9: 724.5] Diagnosis: Insomnia[ICD9: 780.52] Diagnosis: ESOPHAGEAL REFLUX[ICD9: 530.81] [facility] CPT- 4: 10052 03/06/2015 Plan of Care Planned Activity Notes Codes Status Date Visit Plan: Hypertension - uncontrolled - the [...] pt is to call for acute concerns. Low back pain -refer to pain management Dysuria-check Ua 09/15/2018 Appointment: Alis Muhammad WPtel: [phone] (30 min) Complex 09/15/2018 Patient Education: Patient Medication Summary Completed 09/15/2018 Patient Education: Hypertension Completed 09/15/2018 Patient Education: Back Pain Completed 09/15/2018 Appointment: Lab Draw 08/18/2018 Patient Education: Patient Medication Summary Completed 08/18/2018 Visit Plan: Hypertension - not well controlled - continue with current medications, continue with no added salt diet. Pt has been encouraged to exercise daily. The pt has been advised to call the office if there are any acute concerns about change in blood pressure readings at home. Low back pain -compression fractures-continue PT -discussed referral to Ortho if symptoms do not improve 08/15/2018 Appointment: Alis Muhammad WPtel: [phone] (30 min) Complex 08/15/2018 Patient Education: Patient Medication Summary Completed 08/15/2018 Patient Education: Back Pain Completed 08/15/2018 Visit Plan: HTN-onofre induced cough-stop lisinopril -start losartan -monitor blood pressure and follow up in 2 weeks Low back pain-xray lumbar spine and refer for PT 08/01/2018 Appointment: [facility]el[facility] [phone] [phone] (15 min) Moderate 08/01/2018 Patient Education: Patient Medication Summary Completed 08/01/2018 Patient Education: Back Pain Completed 08/01/2018 Care Plan: X-RAY EXAM L-S SPINE 2/3 VWS LOINC : 14287-3 Pending 08/01/2018 Visit Plan: Hypertension - well controlled - [...] if their heart rate is becoming uncontrolled. Depression - symptoms stable - continue with current medications. Pt has multiple co-morbid conditions and she needs a high dose flu shot today. 04/20/2018 [facility]ment[facility] [phone] [phone] (15 min) Moderate 04/20/2018 Patient Education: Patient Medication Summary Completed 04/20/2018 Patient Education: Depression Completed 04/20/2018 Visit Plan: Medicare Exam - today we [...] help decrease fall risk and to maintain independece in the home. Today we discussed the need for the patient to create paperwork for Advanced directives as well as for the patient to provide this office with a copy of her DOPA paperwork for health care surrogate. 02/09/2018 Visit Plan: Medicare Exam - today we [...] help decrease fall risk and to maintain independece in the home. Today we discussed the need for the patient to create paperwork for Advanced directives as well as for the patient to provide this office with a copy of her DOPA paperwork for health care surrogate. 02/09/2018 App[facility]ment[phone] [facility] [facility] - Annual Wellness Visit 02/09/2018 Patient Education: Patient Medication Summary Completed 02/09/2018 Visit Plan: Atrial Fibrillation - pt on chronic anticoagulation and is currently rate controlled. The pt is to have labs done as appropriate to monitor medication levels and is to report if they start to feel as if their heart rate is becoming uncontrolled. Hypertension - well controlled - continue with current medications, continue with no added salt diet. Pt has been encouraged to exercise daily. The pt has been advised to call the office if there are any acute concerns about change in blood pressure readings at home. MAGALY - pt to get a new mask - continue with current management - cpap every night. 12/16/2017 [facility]ment: Scar[facility] Spring [phone] [id number] (15 min) Moderate 12/16/2017 Patient Education: Patient Medication Summary Completed 12/16/2017 Visit Plan: Hypertension - well controlled - [...] becoming uncontrolled. 08/23/2017 Appointment: [place] [facility]el[phone] [facility] (15 min) Moderate 08/23/2017 Patient Education: Patient [...] to cardiology 02/03/2017 Appointment: [facility]el[facility] [phone] [facility] [facility] - Annual Wellness Visit 02/03/2017 [...] at home. 02/02/2017 Appointment: [place] [facility]Ptel[facility] [phone] [facility] (15 min) Moderate 02/02/2017 Patient Education: [...] not improve. 11/26/2016 Appointment: [phone] [facility] (30 min) Complex 11/26/2016 Patient Education: Patient [...] symptoms. 10/07/2016 Appointment: [place] [facility]Ptel[facility] [phone] [facility] (15 min) Moderate 10/07/2016 Patient Education: Patient Medication Summary Completed 10/07/2016 Patient Education: Obesity Completed 10/07/2016 Patient Education: Hypertension Completed 10/07/2016 Care Plan: VASCULAR STUDY Pending 10/04/2016 Care Plan: X-RAY EXAM OF KNEE 3 [facility] : [id number] Pending 10/04/2016 Visit Plan: Hypertension - well [...] paroxetine 09/16/2016 Appointment: [place] [facility]Ptel[facility] [phone] [facility] [place] (15 min) Moderate 09/16/2016 Patient [...] improve. 09/07/2016 Appointment: [facility]el[phone] [facility] [place] (10 min) Simple 09/07/2016 Patient Education: [...] order 04/08/2016 Appointment: [place] [facility]Ptel[facility] [phone] [facility] [place] (15 min) Moderate 04/08/2016 Patient [...] days. 03/05/2016 Appointment: [place] [facility]Ptel[facility] [phone] [facility] (15 min) Moderate 03/05/2016 Patient Education: Patient Medication Summary Completed 03/05/2016 Visit Plan: COPD - chronic problem for this patient. We have reviewed chronic treatment strategy, symptom control, and plans for acute exacerbations. No changes today to the current treatment plan as the patient is stable, monitor for acute changes. anoro samples given to the patient 12/04/2015 Appointment: [place] [facility]Ptel[facility] [phone] [facility] (15 min) Moderate 12/04/2015 Patient Education: [...] allergy spray. 11/18/2015 Appointment: [place] [facility]Ptel[facility] [phone] [facility] (15 min) Moderate 11/18/2015 Patient Education: Patient Medication Summary Completed 11/18/2015 Patient Education: Obesity Completed 11/18/2015 Patient Education: Hypertension Completed 11/18/2015 Appointment: Scarlett Spring WPtel: [facility] (15 min) Moderate 11/07/2015 Visit Plan: [...] culture report. 08/28/2015 Appointment: Scarlett Spring WPtel: [phone] [facility] (15 min) Moderate 08/28/2015 Patient Education: Patient [...] improving. 07/09/2015 Appointment: [place] [facility]Ptel[facility] [phone] [facility] (15 min) Moderate 07/09/2015 Patient Education: [...] improving. 03/06/2015 Appointment: [place] [facility]Ptel[facility] [phone] [facility] [place] ([place] New Patient 03/06/2015 Patient Education: Patient Medication Summary Completed 03/06/2015 Patient Education: Hypertension Completed 03/06/2015 Instructions Comment MONITOR BLOOD PRESSURE AND PULSE CONTINUE PHYSICAL THERAPY FOR YOUR BACK LET ME KNOW IF YOU NEED ANYTHING, OTHERWISE, WE WILL SEE YOU IN 1 MONTH . Hypertension - not well controlled - continue with current medications, continue with no added salt diet. Pt has been encouraged to exercise daily. The pt has been advised to call the office if there are any acute concerns about change in blood pressure readings at home. Low back pain -compression fractures-continue PT -discussed referral to Ortho if symptoms do not improve . Left knee pain, left calf pain [...] if their heart rate is becoming uncontrolled. Declined Procedure: (G0202) SCREENINGMAMMOGRAPHYDIGITAL; Declined Reason: Patient Declined . Atrial Fibrillation - pt on chronic anticoagulation and is currently rate controlled. The pt is to have labs done as appropriate to monitor medication levels and is to report if they start to feel as if their heart rate is becoming uncontrolled. Hypertension - well controlled - continue with current medications, continue with no added salt diet. Pt has been encouraged to exercise daily. The pt has been advised to call the office if there are any acute concerns about change in blood pressure readings at home. MAGALY - pt to get a new mask - continue with current management - cpap every night. . Hypertension - well controlled - continue [...] tissue three times daily x 10 days. increase losartan to 50mg daily -okay to take 2 pills of the 25mg dose until you run out refer to pain management -we will find out if anyone comes to [place] check UA start probiotic daily . Hypertension - uncontrolled - the patient's [...] pt is to call for acute concerns. Low back pain -refer to pain management Dysuria-check Ua CALL WEDNESDAY IF RASH NOT COMPLETELY RESOLVED . MSSA of groin and under [id number] bactrim and call if rash does not [...] is worsening or does not improve. . Medicare Exam - today we discussed [...] help decrease fall risk and to maintain independece in the home. Today we discussed the need for the patient to create paperwork for Advanced directives as well as for the patient to provide this office with a copy of her DOPA paperwork for health care surrogate. . Medicare Exam - today we discussed [...] help decrease fall risk and to maintain independece in the home. Today we discussed the need for the patient to create paperwork for Advanced directives as well as for the patient to provide this office with a copy of her DOPA paperwork for health care surrogate. . Rash - dermatophytosis - recommended oral diflucan, topical nystatin cream, rtc in 10 days to assure healing. check of culture - may need to consider treatment with antibiotic depending on the groin culture report. STOP LISINOPRIL -START LOSARATAN 25MG DAILY FOLLOW UP IN 2 WEEKS TO RE-EVALUATE COUGH XRAY LUMBAR SPINE PHYSICAL THERAPY WITH DIOGO PERES . HTN-onofre induced cough-stop lisinopril -start losartan -monitor blood pressure and follow up in 2 weeks Low back pain-xray lumbar spine and refer for PT . Atrial fibrillation - appt with dr. ocrley today at 1pm - pt's ekg showed [...] Use tylenol for break through pain symptoms. . Hypertension - well controlled - continue [...] if their heart rate is becoming uncontrolled. Depression - symptoms stable - continue with current medications. Pt has multiple co-morbid conditions and she needs a high dose flu shot today.
--- OUTSIDE RECORDS SUMMARY | 2018-10-11 09:50 | XMS REPORT | CCD ---
Author Author [facility] Organization [facility] Address [address] [place] [address] Phone Care Team Providers Care Machine Spring Former Name Role Phone PP Unavailable CCM Unavailable Summary Purpose Interface Exchange Insurance Providers Payer name Policy type / Coverage type Covered democrat ID Effective Begin Date Effective End Date WPS Medicare Part B Medicare Part B [id number] Unknown [employer] Medicare Part B [id number] Unknown Family history Mother Diagnosis Age At Onset Hypertension Unknown Heart Attack Unknown Brother Diagnosis Age At Onset Heart disease Unknown Runs in the family Diagnosis Age At Onset Heart disease Unknown Daughter Diagnosis Age At Onset Heart Attack Unknown Hyperlipidemia Unknown Hypertension Unknown Social History Social History Element Codes Description Effective Dates Number of children Unknown 2 daughter lives in [place], son - does not have contact [address]: 5310151 Quit over 10 years ago 1990 - previously smoked 2ppd x 25 years. 11/18/2015 Marital status Unknown in 201003/06/2015 Employment Unknown Retired was a [employer] 03/06/2015 Allergies, Adverse Reactions, Alerts Substance Reaction [...] Start Date Stop Date Status Fill Instructions terazosin 5 mg capsule RxNorm: 195289 TAKE ONE CAPSULE BY MOUTH DAILY 09/23/2018 02/19/2019 Active losartan 50 mg tablet RxNorm: 484455 1 Tablet(s) PO daily 201803/13/2019 Active omeprazole 20 mg capsule,delayed release RxNorm: 818757 TAKE ONE CAPSULE BY MOUTH EVERY NIGHT AT BEDTIME 09/12/20182018 Active Keflex 500 mg capsule RxNorm: 878959 1 Capsule(s) PO TID 201808/17/2018 Inactive Keflex 500 mg capsule RxNorm: 789865 1 Capsule(s) PO TID 201808/24/2018 Inactive take probiotic while on abx paroxetine 20 mg tablet RxNorm: 1013295 TAKE ONE TABLET BY MOUTH DAILY 08/12/2018 08/06/2019 Active losartan 25 mg tablet RxNorm: 983841 1 Tablet(s) PO daily 201809/29/2018 Active losartan 25 mg tablet RxNorm: 835800 1 Tablet(s) PO daily 201809/14/2018 Inactive trazodone 50 mg tablet RxNorm: 027991 TAKE ONE TABLET BY MOUTH DAILY 07/25/2018 09/22/2018 Inactive Ambien 10 mg tablet RxNorm: 401528 Tablet(s) TAKE ONE TABLET BY MOUTH AT BEDTIME 06/24/2018 09/21/2018 Inactive trazodone 50 mg tablet RxNorm: 113055 TAKE ONE TABLET BY MOUTH DAILY 04/25/2018 07/23/2018 Inactive Ambien 10 mg tablet RxNorm: 728658 Tablet(s) TAKE ONE TABLET BY MOUTH AT BEDTIME 03/23/2018 06/19/2018 Inactive terazosin 5 mg capsule RxNorm: 063189 TAKE ONE CAPSULE BY MOUTH DAILY 03/14/2018 09/09/2018 Inactive Ambien 10 mg tablet RxNorm: 385179 Tablet(s) TAKE ONE TABLET BY MOUTH AT BEDTIME 01/18/2018 09/14/2018 Inactive trazodone 50 mg tablet RxNorm: 619948 TAKE ONE TABLET BY MOUTH ONCE DAILY 01/10/2018 03/22/2018 Inactive trazodone 50 mg tablet RxNorm: 757424 Tablet(s) TAKE ONE TABLET BY MOUTH ONCE DAILY 01/10/2018 04/24/2018 Inactive Ambien 10 mg tablet RxNorm: 447660 Tablet(s) TAKE ONE TABLET BY MOUTH AT BEDTIME 10/22/2017 01/17/2018 Inactive trazodone 50 mg tablet RxNorm: 256134 TAKE ONE TABLET BY MOUTH ONCE DAILY 10/18/2017 01/09/2018 Inactive omeprazole 20 mg capsule,delayed release RxNorm: 708482 TAKE ONE CAPSULE BY MOUTH ONCE DAILY AT BEDTIME 08/27/20172018 Inactive trazodone 50 mg tablet RxNorm: 931649 TAKE ONE TABLET BY MOUTH ONCE DAILY 08/18/2017 10/17/2017 Inactive Ambien 10 mg tablet RxNorm: 649679 Tablet(s) TAKE ONE TABLET BY MOUTH AT BEDTIME 08/18/2017 03/22/2018 Inactive paroxetine 20 mg tablet RxNorm: 4856176 TAKE ONE TABLET BY MOUTH ONCE DAILY 07/27/2017 08/11/2018 Inactive Ambien 10 mg tablet RxNorm: 872757 Tablet(s) TAKE ONE TABLET BY MOUTH AT BEDTIME 06/23/2017 03/22/2018 Inactive omeprazole 20 mg capsule,delayed release RxNorm: 558418 TAKE ONE CAPSULE BY MOUTH ONCE DAILY AT BEDTIME 04/23/20172017 Inactive trazodone 50 mg tablet RxNorm: 687729 TAKE ONE TABLET BY MOUTH ONCE DAILY 04/13/2017 08/10/2017 Inactive terazosin 5 mg capsule RxNorm: 065774 Capsule(s) TAKE ONE CAPSULE BY MOUTH DAILY 04/08/2017 03/03/2018 Inactive Ambien 10 mg tablet RxNorm: 488816 Tablet(s) TAKE ONE TABLET BY MOUTH AT BEDTIME 02/17/2017 03/22/2018 Inactive Tylenol-Codeine #3 300 mg-30 mg tablet RxNorm: 070494 1 Tablet(s) PO QID as needed 02/02/2017 03/03/2017 Inactive metoprolol succinate ER 50 mg tablet,extended release 24 hr RxNorm: 153382 TAKE ONE TABLET BY MOUTH ONCE DAILY 12/23/2016 02/02/2017 Inactive Zithromax Z-Ted 250 mg tablet RxNorm: 703883 1 Tablet(s) PO UD 11/26/2016 02/16/2017 Inactive trazodone 50 mg tablet RxNorm: 592481 TAKE ONE TABLET BY MOUTH ONCE DAILY 11/12/2016 03/11/2017 Inactive Ambien 10 mg tablet RxNorm: 022226 Tablet(s) TAKE ONE TABLET BY MOUTH AT BEDTIME 10/22/2016 02/15/2017 Inactive paroxetine 20 mg tablet RxNorm: 2419044 1 Tablet(s) PO daily TAKE ONE TABLET BY MOUTH DAILY 09/16/2016 06/12/2017 Inactive meloxicam 7.5 mg tablet RxNorm: 013826 1 Tablet(s) PO daily 11/14/2016 Inactive Protonix 40 mg tablet,delayed release RxNorm: 684822 1 Tablet(s) PO daily 09/16/2016 08/22/2017 Inactive sucralfate 1 gram tablet RxNorm: 302117 1 Tablet(s) PO TID 08/22/2017 Inactive Ambien 10 mg tablet RxNorm: 293397 Tablet(s) TAKE ONE TABLET BY MOUTH AT BEDTIME 08/24/2016 03/22/2018 Inactive trazodone 50 mg tablet RxNorm: 375369 Tablet(s) TAKE ONE TABLET BY MOUTH DAILY 07/29/2016 11/11/2016 Inactive Ambien 10 mg tablet RxNorm: 739538 TAKE ONE TABLET BY MOUTH AT BEDTIME 06/23/2016 03/22/2018 Inactive Ambien 10 mg tablet RxNorm: 736275 Tablet(s) TAKE ONE TABLET BY MOUTH EVERY NIGHT AT BEDTIME 06/22/2016 06/23/2016 Inactive Lasix 40 mg tablet RxNorm: 237338 1 Tablet(s) PO daily as needed for swelling 04/03/2016 09/15/2016 Inactive potassium chloride ER 20 mEq tablet,extended release RxNorm: 767962 1 Tablet(s) PO daily for swelling take with lasix as needed 04/03/2016 09/15/2016 Inactive Ambien 10 mg tablet RxNorm: 871744 Tablet(s) TAKE ONE TABLET BY MOUTH EVERY NIGHT AT BEDTIME 04/03/2016 03/22/2018 Inactive omeprazole 20 mg capsule,delayed release RxNorm: 289380 TAKE ONE CAPSULE BY MOUTH EVERY NIGHT AT BEDTIME 03/31/20162016 Inactive paroxetine 20 mg tablet RxNorm: 6415210 TAKE ONE TABLET BY MOUTH DAILY 03/31/2016 09/15/2016 Inactive trazodone 50 mg tablet RxNorm: 011863 TAKE ONE TABLET BY MOUTH DAILY 03/20/2016 07/28/2016 Inactive terazosin 5 mg capsule RxNorm: 852846 TAKE ONE CAPSULE BY MOUTH DAILY 03/06/2016 10/06/2016 Inactive Ambien 10 mg tablet RxNorm: 180564 Tablet(s) TAKE ONE TABLET BY MOUTH EVERY NIGHT AT BEDTIME 01/17/2016 04/02/2016 Inactive loratadine 10 mg tablet RxNorm: 839159 1 Tablet(s) PO daily 09/15/2016 Inactive mupirocin 2 % topical ointment RxNorm: 809094 1 Application TOP TID 11/18/2015 12/01/2015 Inactive metoprolol succinate ER 50 mg tablet,extended release 24 hr RxNorm: 825457 1 Tablet(s) PO daily 11/18/2015 11/11/2016 Inactive loratadine 10 mg tablet RxNorm: 800702 1 Tablet(s) PO daily 01/14/2016 Inactive Lasix 40 mg tablet RxNorm: 427717 1 Tablet(s) PO daily as needed for swelling 10/30/2015 11/28/2015 Inactive potassium chloride ER 20 mEq tablet,extended release RxNorm: 837957 1 Tablet(s) PO daily for swelling take with lasix as needed 10/30/2015 11/28/2015 Inactive Tylenol-Codeine #3 300 mg-30 mg tablet RxNorm: 604055 1 Tablet(s) PO QID as needed 10/25/2015 02/01/2017 Inactive Ambien 10 mg tablet RxNorm: 215267 Tablet(s) TAKE ONE TABLET BY MOUTH EVERY NIGHT AT BEDTIME 10/18/2015 03/22/2018 Inactive Diflucan 150 mg tablet RxNorm: 380026 1 Tablet(s) PO daily 02/201612/03/2015 Inactive Lasix 20 mg tablet RxNorm: 384326 1 Tablet(s) PO PRN fror swelling 09/27/2015 10/29/2015 Inactive potassium chloride ER 10 mEq capsule,extended release RxNorm: 387548 1 Capsule(s) PO PRN for swelling take with lasix 09/27/2015 10/29/2015 Inactive Bactrim DS 800 mg-160 mg tablet RxNorm: 909525 1 Tablet(s) PO BID 09/02/2015 09/11/2015 Inactive Bactrim DS 800 mg-160 mg tablet RxNorm: 553370 1 Tablet(s) PO BID 09/02/2015 09/01/2015 Inactive nystatin 100,000 unit/gram topical cream RxNorm: 175940 1 Gram(s) TOP TID 08/28/2015 09/26/2015 Inactive Diflucan 150 mg tablet RxNorm: 571133 1 Tablet(s) PO daily 09/201509/06/2015 Inactive betamethasone dipropionate 0.05 % topical ointment RxNorm: 615042 1 Application TOP TID to affected area 08/02/20152016 Inactive nystatin 100,000 unit/gram topical powder RxNorm: 549310 1 Gram(s) TOP QID 07/09/2015 08/01/2015 Inactive Ambien 10 mg tablet RxNorm: 459104 1 Tablet(s) PO QHS 201406/18/2015 Inactive Ambien 10 mg tablet RxNorm: 081998 TAKE ONE TABLET BY MOUTH EVERY NIGHT AT BEDTIME 06/19/2015 09/16/2015 Inactive Vitamin D2 50,000 unit capsule RxNorm: 102226 1 Capsule(s) PO QW 03/07/2015 03/06/2015 Inactive Vitamin D2 50,000 unit capsule RxNorm: 559399 1 Capsule(s) PO QW 03/07/2015 05/05/2015 Inactive terazosin 5 mg capsule RxNorm: 317810 1 Capsule(s) PO daily 06/201502/28/2016 Inactive [SAVINGS FOR NON-COVERED DRUGS -- BIN:[id number], PCN: [id number], Group: XXXXX, ID# [id number], Questions: . THIS IS NOT INSURANCE.] trazodone 50 mg tablet RxNorm: 189369 1 Tablet(s) PO daily 06/201502/28/2016 Inactive paroxetine 20 mg tablet RxNorm: 6402773 1 Tablet(s) PO daily 02/28/2016 Inactive Tylenol-Codeine #3 300 mg-30 mg tablet RxNorm: 715633 1 Tablet(s) PO QID as needed 03/06/2015 07/02/2015 Inactive amlodipine 10 mg tablet RxNorm: 122661 1 Tablet(s) PO daily 06/201511/17/2015 Inactive metoprolol succinate ER 25 mg tablet,extended release 24 hr RxNorm: 614143 1 Tablet(s) PO daily 03/06/2015 11/17/2015 Inactive omeprazole 20 mg capsule,delayed release RxNorm: 081639 1 Capsule(s) PO QHS 03/06/2015 02/28/2016 Inactive omeprazole 20 mg capsule,delayed release RxNorm: 855173 1 Capsule(s) PO QHS 01/31/2015 01/30/2015 Inactive omeprazole 20 mg capsule,delayed release RxNorm: 693273 1 Capsule(s) PO QHS 01/31/2015 01/30/2015 Inactive omeprazole 20 mg capsule,delayed release RxNorm: 140348 1 Capsule(s) PO QHS 01/31/2015 03/05/2015 Inactive Ambien 10 mg tablet RxNorm: 507992 1 Tablet(s) PO QHS 201404/21/2015 Inactive paroxetine 20 mg tablet RxNorm: 985815 1 Tablet(s) PO daily 08/201412/24/2014 Inactive Ambien 10 mg tablet RxNorm: 957355 1 Tablet(s) PO QHS 201412/24/2014 Inactive paroxetine 20 mg tablet RxNorm: 324812 1 Tablet(s) PO daily 08/201403/05/2015 Inactive terazosin 5 mg capsule RxNorm: 559196 1 Capsule(s) PO daily 07/201403/05/2015 Inactive [SAVINGS FOR NON-COVERED DRUGS -- BIN:[id number], PCN: [id number], Group: XXXXX, ID# [id number], Questions: . THIS IS NOT INSURANCE.] terazosin 5 mg capsule RxNorm: 868096 1 Capsule(s) PO daily 07/201411/22/2014 Inactive Lasix 20 mg tablet RxNorm: 051455 1 Tablet(s) PO daily No Start Date Active K-Dur 10 mEq tablet,extended release RxNorm: 292399 1 Tablet(s) PO daily No Start Date Active hydrochlorothiazide 25 mg tablet RxNorm: 112084 1 Tablet(s) PO daily No Start Date Active Vitamin D3 2,000 unit tablet RxNorm: 152672 1 Tablet(s) PO daily No Start Date Active amiodarone 200 mg tablet RxNorm: 765576 1 Tablet(s) PO BID No Start Date Active Zetia 10 mg tablet RxNorm: 479702 1 Tablet(s) PO daily No Start Date Active Lipitor 80 mg tablet RxNorm: 623575 1/2 Tablet(s) PO daily No Start Date Active Coumadin 4 mg tablet RxNorm: 245466 1 Tablet(s) PO daily No Start Date Active metoprolol succinate ER 25 mg tablet,extended release 24 hr RxNorm: 728188 1 Tablet(s) PO daily No Start Date 2014 Inactive Entresto 49 mg-51 mg tablet RxNorm: 4132453 1 Tablet(s) PO BID No Start Date 04/19/2018 Inactive sotalol 80 mg tablet RxNorm: 0042298 1 Tablet(s) PO BID No Start Date 04/19/2018 Inactive betamethasone dipropionate 0.05 % topical ointment RxNorm: 293268 1 Application TOP TID to affected area No Start Date 01/2016 Inactive trazodone 50 mg tablet RxNorm: 038108 1 Tablet(s) PO daily No Start Date 03/05/2015 Inactive potassium chloride ER 10 mEq capsule,extended release RxNorm: 029844 1 Capsule(s) PO PRN for swelling take with lasix No Start Date 09/26/2015 Inactive Eliquis 5 mg tablet RxNorm: 0564841 1 Tablet(s) PO BID No Start Date 09/14/2018 Inactive amlodipine 10 mg tablet RxNorm: 725312 1 Tablet(s) PO daily No Start Date 03/05/2015 Inactive isosorbide mononitrate ER 30 mg tablet,extended release 24 hr RxNorm: 607687 1 Tablet(s) PO daily No Start Date 2017 Inactive aspirin 81 mg tablet,delayed release RxNorm: 304569 1 Tablet(s) PO daily No Start Date 02/02/2017 Inactive Lasix 20 mg tablet RxNorm: 174261 1 Tablet(s) PO PRN fror swelling No Start Date 09/26/2015 Inactive lisinopril 5 mg tablet RxNorm: 374342 1 Tablet(s) PO daily No Start Date 07/31/2018 Inactive Crestor 40 mg tablet RxNorm: 652383 1 Tablet(s) PO daily No Start Date 09/15/2016 Inactive metoprolol succinate ER 100 mg tablet,extended release 24 hr RxNorm: 419931 1 Tablet(s) PO daily No Start Date [...] Item Item Code Result Date Culture Urine [id number] URINE CULTURE SEE NOTES 08/22/2018 Culture Urine [id number] Continued Results 08/22/2018 Urine Culture Ucult Complete >100,000 col/ml aerobic growth sent to ref lab 08/19/2018 Comp Metabolic Eyc002 NA 140 mEq/L 08/01/2018 Comp Metabolic Fwk095 K 4.2 mEq/L 08/01/2018 Comp Metabolic Jsh104 CL 102 mEq/L 08/01/2018 Comp Metabolic Uyq016 CO2 27.0 mEq/L 08/01/2018 Comp Metabolic Dvi586 ANION GAP 15 08/01/2018 Comp Metabolic Ors022 GLUCOSE 107 mg/dL 08/01/2018 Comp Metabolic Wgh429 Creat 1.0 mg/dL 08/01/2018 Comp Metabolic Woe335 eGFR 58 ml/min/1.73m2 08/01/2018 Comp Metabolic Yrk415 BUN 10 mg/dL 08/01/2018 Comp Metabolic Mat016 B/C Ratio 10.0 Ratio 08/01/2018 Comp Metabolic Imi058 CALCIUM 8.9 mg/dL 08/01/2018 Comp Metabolic Ijl273 ALK PHOS 68 U/L 08/01/2018 Comp Metabolic Pra051 AST(SGOT) 18 U/L 08/01/2018 Comp Metabolic Xro715 ALT(SGPT) 14 U/L 08/01/2018 Comp Metabolic Zid700 BILI T 0.5 mg/dL 08/01/2018 Comp Metabolic Sxo615 ALBUMIN 4.0 g/dL 08/01/2018 Comp Metabolic Ayz688 TPRO 6.3 g/dL 08/01/2018 Comp Metabolic Vxa814 GLOB 2.3 g/dL 08/01/2018 Comp Metabolic Cjt354 A/G Ratio 1.7 Ratio 08/01/2018 Comp Metabolic Urh339 Osmo 279 mOsmo 08/01/2018 Tsh Ord6 TSH [...] 27.3 pg 08/01/2018 Cbc With Differential Ord2 [place]% 9.8 % 08/01/2018 Cbc With Differential Ord2 [...] 0.79 K/ul 08/01/2018 Cbc With Differential Ord2 [place] ABS# 0.4 K/ul 08/01/2018 Cbc With Differential Ord2 Eos ABS# 0.1 K/ul 08/01/2018 Cbc With Differential Ord2 Baso ABS# 0.0 K/ul 08/01/2018 Lipid Ord30 CHOL 234 mg/dL 08/01/2018 Lipid Ord30 HDL 69.0 mg/dl 08/01/2018 Lipid Ord30 TRIG 57 mg/dL 08/01/2018 Lipid Ord30 LDL 154 mg/dL 08/01/2018 Lipid Ord30 C/HDL 3.4 Ratio 08/01/2018 Comp Metabolic Iux688 NA 137 mEq/L 09/30/2015 Comp Metabolic Fnc525 K 4.5 mEq/L 09/30/2015 Comp Metabolic Obb085 CL 102 mEq/L 09/30/2015 Comp Metabolic Jby762 CO2 26.0 mEq/L 09/30/2015 Comp Metabolic Voj683 ANION GAP 14 09/30/2015 Comp Metabolic Kkj880 GLUCOSE 89 mg/dL 09/30/2015 Comp Metabolic The963 Creat 0.8 mg/dL 09/30/2015 Comp Metabolic Vlm153 eGFR 79 ml/min/1.73m2 09/30/2015 Comp Metabolic Was069 BUN 14 mg/dL 09/30/2015 Comp Metabolic Avg402 B/C Ratio 18.2 Ratio 09/30/2015 Comp Metabolic Xsh663 CALCIUM 8.9 mg/dL 09/30/2015 Comp Metabolic Rpj509 ALK PHOS 65 U/L 09/30/2015 Comp Metabolic Iio716 AST(SGOT) 26 U/L 09/30/2015 Comp Metabolic Zxu882 ALT(SGPT) 18 U/L 09/30/2015 Comp Metabolic Qxk109 BILI T 0.6 mg/dL 09/30/2015 Comp Metabolic Cfp625 ALBUMIN 3.8 g/dL 09/30/2015 Comp Metabolic Vds386 TPRO 6.6 g/dL 09/30/2015 Comp Metabolic Gvx559 GLOB 2.8 g/dL 09/30/2015 Comp Metabolic Luz421 A/G Ratio 1.4 Ratio 09/30/2015 Comp Metabolic Okl998 Osmo 274 mOsmo 09/30/2015 Cbc With Differential [...] 27.7 pg 09/30/2015 Cbc With Differential Ord2 [place]% 10.7 % 09/30/2015 Cbc With Differential Ord2 [...] 1.10 K/ul 09/30/2015 Cbc With Differential Ord2 [place] ABS# 0.6 K/ul 09/30/2015 Cbc With Differential Ord2 Eos ABS# 0.2 K/ul 09/30/2015 Cbc With Differential Ord2 Baso ABS# 0.0 K/ul 09/30/2015 Cbc With Differential Ord2 New Analyzer Notice Please note new ref ranges starting 08-07-2015 due to implemntation of new five part differential hematolgy analyzer. 09/30/2015 Comp Metabolic Qty256 NA 137 mEq/L 03/06/2015 Comp Metabolic Zxr211 K 4.3 mEq/L 03/06/2015 Comp Metabolic Dta680 CL 104 mEq/L 03/06/2015 Comp Metabolic Fxn468 CO2 28.0 mEq/L 03/06/2015 Comp Metabolic Bgx527 ANION GAP 9 03/06/2015 Comp Metabolic Jpc470 GLUCOSE 93 mg/dL 03/06/2015 Comp Metabolic Ejh981 Creat 0.8 mg/dL 03/06/2015 Comp Metabolic Ues536 eGFR 81 ml/min/1.73m2 03/06/2015 Comp Metabolic Lzy288 BUN 12 mg/dL 03/06/2015 Comp Metabolic Ish582 B/C Ratio 16.0 Ratio 03/06/2015 Comp Metabolic Mby257 CALCIUM 8.9 mg/dL 03/06/2015 Comp Metabolic Iii654 ALK PHOS 56 U/L 03/06/2015 Comp Metabolic Caj285 AST(SGOT) 22 U/L 03/06/2015 Comp Metabolic Klb655 ALT(SGPT) 15 U/L 03/06/2015 Comp Metabolic Srn585 BILI T 0.4 mg/dL 03/06/2015 Comp Metabolic Ahk885 ALBUMIN 4.0 g/dL 03/06/2015 Comp Metabolic Tmv744 TPRO 6.5 g/dL 03/06/2015 Comp Metabolic Dle258 GLOB 2.5 g/dL 03/06/2015 Comp Metabolic Yhh222 A/G Ratio 1.6 Ratio 03/06/2015 Comp Metabolic Jwp880 Osmo 273 mOsmo 03/06/2015 Cbc With Differential [...] 15.7 % 03/06/2015 Vitamin D 25 Oh Pfz1693 VITAMIN D, 25 HYDROXY 28.14 ng/mL Tsh [...] clear 08/15/2018 None Full Exam - General 1995 Eyes conjunctiva /eyelids Overall: eyelids normal 08/15/2018 None Full Exam - General 1994 Eyes pupils and irises Overall: pupils equal, round, reactive to light and accomodation 08/15/2018 None Full Exam - General 1995 Ears/Nose/Throat otoscopic exam Overall: external auditory canals clear 08/15/2018 None Full Exam - General 1994 Ears/Nose/Throat otoscopic exam Overall: tympanic membranes clear 08/15/2018 None Full Exam - General 1994 Ears/Nose/Throat lips/teeth/gingiva Overall: benign lips 08/15/2018 None Full Exam - General 1995 Ears/Nose/Throat lips/teeth/gingiva Overall: normal dentition 08/15/2018 None Full Exam - General 1994 Ears/Nose/Throat oral cavity/pharynx/larynx Overall: oral mucosa clear 08/15/2018 None Full Exam - General 1994 Ears/Nose/Throat oral cavity/pharynx/larynx Overall: oropharyngeal mucosa clear 08/15/2018 None Full Exam - General 1994 Ears/Nose/Throat oral cavity/pharynx/larynx Overall: hypopharynx benign 08/15/2018 None Full Exam - General 1995 Ears/Nose/Throat oral cavity/pharynx/larynx Overall: no masses 08/15/2018 [...] sounds 08/15/2018 None Full Exam - General 1995 Lymphatic neck nodes Overall: anterior cervical chain benign 08/15/2018 None Full Exam - General 1995 Lymphatic neck nodes Overall: posterior cervical chain benign 08/15/2018 None Full Exam - General 1994 Musculoskeletal spine, ribs and pelvis Overall: spine benign 08/15/2018 None Full Exam - General 1995 Musculoskeletal spine, ribs and pelvis Overall: sacroiliac joint benign 08/15/2018 None Full Exam - General 1995 Musculoskeletal spine, ribs and pelvis Overall: good [...] accomodation 08/01/2018 None Full Exam - General 1995 Ears/Nose/Throat otoscopic exam Overall: external auditory canals clear 08/01/2018 None Full Exam - General 1995 Ears/Nose/Throat otoscopic exam Overall: tympanic membranes clear 08/01/2018 None Full Exam - General 1995 Ears/Nose/Throat lips/teeth/gingiva Overall: benign lips 08/01/2018 None Full Exam - General 1995 Ears/Nose/Throat lips/teeth/gingiva Overall: normal dentition 08/01/2018 None Full Exam - General 1995 Ears/Nose/Throat oral cavity/pharynx/larynx Overall: oral mucosa clear 08/01/2018 None Full Exam - General 1995 Ears/Nose/Throat oral cavity/pharynx/larynx Overall: oropharyngeal mucosa clear 08/01/2018 None Full Exam - General 1995 Ears/Nose/Throat oral cavity/pharynx/larynx Overall: hypopharynx benign 08/01/2018 [...] posture 08/01/2018 None Full Exam - General 1994 Musculoskeletal head and neck Overall: head atraumatic 08/01/2018 None Full Exam - General 1994 Musculoskeletal head and neck Overall: cervical spine benign 08/01/2018 None Full Exam - General 1994 Neurologic deep tendon reflexes Overall: deep tendon reflexes intact 08/01/2018 None Full Exam - General 1994 Neurologic [...] clear 04/20/2018 None Full Exam - General 1995 Ears/Nose/Throat oral cavity/pharynx/larynx Overall: no masses 04/20/2018 [...] lips 04/20/2018 None Full Exam - General 1995 Ears/Nose/Throat lips/teeth/gingiva Overall: normal dentition 04/20/2018 None [...] normal 02/09/2018 None Full Exam - General 1995 Ears/Nose/Throat lips/teeth/gingiva Overall: benign lips 02/09/2018 None [...] Codes Date URINALYSIS NONAUTO W/O SCOPE CPT-4: 01093 08/18/2018 ADMIN INFLUENZA VIRUS VAC CPT-4: G0008 04/20/2018 FLU VACC PRSV FREE INC ANTIG Assigned to/Amparo Mims, Formatting Model/CDA Sections CPT-4: 76711Yfrsokc 04/20/2018 PPPS, SUBSEQ VISIT CPT -4: G0439 02/09/2018 PPPS, SUBSEQ VISIT CPT -4: G0439 02/03/2017 ADMIN INFLUENZA VIRUS VAC CPT-4: G0008 04/08/2016 ADMIN PNEUMOCOCCAL VACCINE SNOMED CT: 71914992 CPT-4: G0009 04/08/2016 PNEUMOCOCCAL VACC [address]: 59279143 CPT-4: 01002 04/08/2016 FLU VACC PRSV FREE INC ANTIG CPT-4: 57259 04/08/2016 Vital Signs Date Vital 09/15/2018 Blood Pressure 1: 154/86 Code : 8480-6 BMI: 42.9 Code : 90087-2 Heart Rate 1 : 88 bpm Height: 5'7" SpO2: 94% Weight: 274 lbs 08/15/2018 Blood Pressure 1: 140/90 Code : 8480-6 BMI: 40.7 Code : 20597-2 Heart Rate 1 : 70 bpm Height: 5'7" SpO2: 93% Weight: 260 lbs 08/01/2018 Blood Pressure 1: 130/70 Code : 8480-6 BMI: 40.7 Code : 16637-4 Heart Rate 1 : 80 bpm Height: 5'7" SpO2: 93% Weight: 260 lbs 04/20/2018 Blood Pressure 1: 128/68 Code : 8480-6 BMI: 41.7 Code : 19969-4 Heart Rate 1 : 85 bpm Height: 5'7" SpO2: 94% Weight: 266 lbs 02/09/2018 Blood Pressure 1: 118/70 Code : 8480-6 BMI: 42.1 Code : 31549-2 Heart Rate 1 : 58 bpm Height: 5'7" SpO2: 94% Weight: 269 lbs 12/16/2017 Blood Pressure 1: 132/86 Code : 8480-6 BMI: 42.7 Code : 81012-4 Heart Rate 1 : 63 bpm Height: 5'7" SpO2: 94% Weight: 272 lbs 14 oz 08/23/2017 Blood Pressure 1: 150/82 Code : 8480-6 BMI: 42.0 Code : 33201-2 Heart Rate 1 : 66 bpm Height: 5'7" SpO2: 96% Weight: 268 lbs 02/03/2017 Blood Pressure 1: 138/72 Code : 8480-6 BMI: 41.2 Code : 75535-8 Heart Rate 1 : 96 bpm Height: 5'7" SpO2: 97% Weight: 263 lbs 02/02/2017 Blood Pressure 1: 140/90 Code : 8480-6 BMI: 41.2 Code : 36584-2 Heart Rate 1 : 103 bpm Height: 5'7" SpO2: 94% Weight: 263 lbs 11/26/2016 Blood Pressure 1: 152/88 Code : 8480-6 BMI: 41.0 Code : 17114-1 Heart Rate 1 : 71 bpm Height: 5'7" SpO2: 94% Temperature: 37.7 (C) / 99.8 (F) Weight: 262 lbs 10/07/2016 Blood Pressure 1: 148/82 Code : 8480-6 BMI: 41.7 Code : 81833-2 Heart Rate 1 : 58 bpm Height: 5'7" SpO2: 96% Weight: 266 lbs 09/16/2016 Blood Pressure 1: 122/70 Code : 8480-6 BMI: 42.0 Code : 48719-7 Heart Rate 1 : 65 bpm Height: 5'7" SpO2: 96% Weight: 268 lbs 09/07/2016 Blood Pressure 1: 154/60 Code : 8480-6 BMI: 42.3 Code : 44190-3 Heart Rate 1 : 101 bpm Height: 5'7" SpO2: 97% Weight: 270 lbs 04/08/2016 Blood Pressure 1: 128/70 Code : 8480-6 BMI: 41.4 Code : 02600-2 Heart Rate 1 : 62 bpm Height: 5'7" SpO2: 95% Weight: 264 lbs 8 oz 03/05/2016 Blood Pressure 1: 144/78 Code : 8480-6 Blood Pressure 1: 139/72 Code: 8480-6 BMI: 41.9 Code: 54638-9 Heart Rate 1: 71 bpm Height: 5'7" SpO2: 93% Weight: 267 lbs 8 oz 12/04/2015 Blood Pressure 1: 132/70 Code : 8480-6 BMI: 41.3 Code : 08193-9 Heart Rate 1 : 56 bpm Height: 5'7" SpO2: 96% Weight: 264 lbs 11/18/2015 Blood Pressure 1: 138/72 Code : 8480-6 BMI: 41.0 Code : 19029-6 Heart Rate 1 : 85 bpm Height: 5'7" SpO2: 93% Weight: 262 lbs 09/30/2015 Blood Pressure 1: 128/76 Code : 8480-6 BMI: 41.2 Code : 59042-9 Heart Rate 1 : 70 bpm Height: 5'7" SpO2: 93% Weight: 263 lbs 09/09/2015 Blood Pressure 1: 138/80 Code : 8480-6 BMI: 40.3 Code : 83747-5 Heart Rate 1 : 84 bpm Height: 5'7" SpO2: 95% Weight: 257 lbs 08/28/2015 Blood Pressure 1: 122/72 Code : 8480-6 BMI: 39.6 Code : 10179-7 Heart Rate 1 : 75 bpm Height: 5'7" SpO2: 96% Weight: 253 lbs 07/09/2015 Blood Pressure 1: 140/78 Code : 8480-6 Blood Pressure 1: 135/78 Code: 8480-6 BMI: 39.5 Code: 08645-8 Heart Rate 1: 62 bpm Height: 5'7" SpO2: 95% Weight: 252 lbs 03/06/2015 Blood Pressure 1: 142/88 Code : 8480-6 BMI: 39.3 Code : 18976-7 Heart Rate 1 : 65 bpm Height: [...] of Symptom 2 weeks ago 07/09/2015 first june rash Timing of Episodes in the summer [...] data Encounters Encounter Performer Location Codes Date ([id number]) 70280 EST. PATIENT, LEVEL IV Diagnosis: Essential (primary) hypertension[ICD10: I10] Diagnosis: Dysuria[ICD10: R30.0] Diagnosis: Low back pain[ICD10: M54.5] Alis Spring MD, [facility] CPT-4: 94332 09/15/2018 ([id number]) 33033 EST. PATIENT, LEVEL III Diagnosis: Essential (primary) hypertension[ICD10: I10] Diagnosis: Low back pain[ICD10: M54.5] Alis Spring MD, [facility] CPT-4: 30209 08/15/2018 ([id number]) 93906 EST. PATIENT, LEVEL III Diagnosis: Essential (primary) hypertension[ICD10: I10] Diagnosis: Cough[ICD10: R05] Diagnosis: Low back pain[ICD10: M54.5] Alis Spring MD, [facility] CPT-4: 95533 08/01/2018 ([id number]) 16564 EST. PATIENT, LEVEL IV Diagnosis: Encounter for immunization[ICD10: Z23] Diagnosis: Essential (primary) hypertension[ICD10: I10] Diagnosis: Chronic atrial fibrillation[ICD10: I48.2] Diagnosis: Major depressive disorder, recurrent, mild[ICD10: F33.0] Scarlett Spring MD, [facility] CPT-4: 35585 04/20/2018 ([id number]) 56965 EST. PATIENT, LEVEL IV Diagnosis: Essential (primary) hypertension[ICD10: I10] Diagnosis: Obstructive sleep apnea (adult) (pediatric)[ICD10: G47.33] Diagnosis: Chronic atrial fibrillation[ICD10: I48.2] Scarlett Spring MD, [facility] CPT-4: 08815 12/16/2017 ([id number]) 06728 EST. PATIENT, LEVEL IV Diagnosis: Essential (primary) hypertension[ICD10: I10] Diagnosis: Chronic atrial fibrillation[ICD10: I48.2] Scarlett Spring MD, [facility] CPT-4: 55049 08/23/2017 ([id number]) 11641 EST. PATIENT, LEVEL IV Diagnosis: Paroxysmal atrial fibrillation[ICD10: I48.0] Diagnosis: Essential (primary) hypertension[ICD10: I10] Scarlett Spring MD, [facility] CPT-4: 92183 02/02/2017 25833 EST. PATIENT, LEVEL III Diagnosis: Acute laryngopharyngitis[ICD10: J06.0] Diagnosis: Cough[ICD10: R05] Diagnosis: Pleurodynia[ICD10: R07.81] Diagnosis: Other dorsalgia[ICD10: M54.89] Kassandra Spring MD, [facility] CPT-4 : 50513 11/26/2016 ([id number]) 70840 EST. PATIENT, LEVEL IV Diagnosis: Essential (primary) hypertension[ICD10: I10] Diagnosis: Pain in left knee[ICD10: M25.562] Diagnosis: Low back pain[ICD10: M54.5] Diagnosis: Major depressive disorder, recurrent, moderate[ICD10: F33.1] Scarlett Spring MD, [facility] CPT-4: 73854 10/07/2016 ([id number]) 95480 EST. PATIENT, LEVEL IV Diagnosis: Essential (primary) hypertension[ICD10: I10] Diagnosis: Rash and other nonspecific skin eruption[ICD10: R21] Diagnosis: Major depressive disorder, recurrent, mild[ICD10: F33.0] Scarlett Spring MD, [facility] CPT-4: 67664 09/16/2016 40513 EST. PATIENT, LEVEL IV Diagnosis: Pain in left lower leg[ICD10: M79.662] Diagnosis: Pain in left knee[ICD10: M25.562] Kassandra Spring MD, [facility] CPT -4: 60253 09/07/2016 ([id number]) 82307 EST. PATIENT, LEVEL IV Diagnosis: Encounter for immunization[ICD10: Z23] Diagnosis: Essential (primary) hypertension[ICD10: I10] Diagnosis: Mixed hyperlipidemia[ICD10: E78.2] Scarlett Spring MD, [facility] CPT-4: 13934 04/08/2016 ([id number]) 74752 EST. PATIENT, LEVEL III Diagnosis: Essential (primary) hypertension[ICD10: I10] Diagnosis: Shortness of breath[ICD10: R06.02] Scarlett Spring MD, [facility] CPT-4: 05173 03/05/2016 ([id number]) 15026 EST. PATIENT, LEVEL III Diagnosis: Chronic obstructive pulmonary disease, unspecified[ICD10: J44.9] Scarlett Spring MD, [facility] CPT-4: 67222 12/04/2015 ([id number]) 55539 EST. PATIENT, LEVEL IV Diagnosis: Essential (primary) hypertension[ICD10: I10] Diagnosis: Allergic rhinitis due to pollen[ICD10: J30.1] Scarlett Spring MD, [facility] CPT-4: 60020 11/18/2015 ([id number]) 55529 EST. PATIENT, LEVEL IV Diagnosis: Localized edema[ICD10: R60.0] Diagnosis: Dysuria[ICD10: R30.0] Diagnosis: Essential (primary) hypertension[ICD10: I10] Diagnosis: Nausea[ICD10: R11.0] Alis Spring MD, [facility] CPT-4: 49182 09/30/2015 ([id number]) 23438 EST. PATIENT, LEVEL II Diagnosis: Methicillin susceptible Staphylococcus aureus infection as the cause of diseases classified elsewhere[ICD10: B95.61] Diagnosis: Methicillin susceptible Staphylococcus aureus infection, unspecified site[ICD10: A49.01] Alis Spring MD, [facility] CPT-4: 44851 09/09/2015 ([id number]) 74769 EST. PATIENT, LEVEL III Diagnosis: Dermatophytosis, unspecified[ICD10: B35.9] Diagnosis: Rash and other nonspecific skin eruption[ICD10: R21] Scarlett Spring MD [facility] CPT-4: 15528 08/28/2015 ([id number]) 59287 EST. PATIENT, LEVEL IV Diagnosis: Essential (primary) hypertension[ICD10: I10] Diagnosis: Gastro-esophageal reflux disease without esophagitis[ICD10: K21.9] Diagnosis: Other dorsalgia[ICD10: M54.89] Scarlett Spring MD, [facility] CPT- 4: 98685 07/09/2015 ([id number]) OFFICE VISIT, NEW - LEVEL 4 Diagnosis: ESSENTIAL HYPERTENSION[ICD9: 401.9] Diagnosis: Osteoporosis[ICD9: 733.00] Diagnosis: Back pain[ICD9: 724.5] Diagnosis: Insomnia[ICD9: 780.52] Diagnosis: ESOPHAGEAL REFLUX[ICD9: 530.81] [facility] CPT- 4: 89547 03/06/2015 Plan of Care Planned Activity Notes [...] Dysuria-check Ua 09/15/2018 Appointment: Alis Muhammad WPtel: [address] [place], [place] [phone] (30 min) Complex 09/15/2018 Patient Education: Patient [...] not improve 08/15/2018 Appointment: Alis Muhammad WPtel: [address] [place], [place] [phone] (30 min) Complex 08/15/2018 Patient Education: Patient Medication Summary Completed 08/15/2018 Patient Education: Back Pain Completed 08/15/2018 Visit Plan: HTN-onofre induced cough-stop lisinopril -start losartan -monitor blood pressure and follow up in 2 weeks Low back pain-xray lumbar spine and refer for PT 08/01/2018 Appointment: Alis Muhammad WPtel: [facility] [phone] (15 min) Moderate 08/01/2018 Patient Education: Patient Medication Summary Completed 08/01/2018 Patient Education: Back Pain Completed 08/01/2018 Care Plan: X-RAY EXAM L-S SPINE 2/3 [employer] : 89120-2 Pending 08/01/2018 Visit Plan: Hypertension - well [...] shot today. 04/20/2018 Appointment: Scarlett Spring WPtel: [address] [place], [place] [phone] (15 min) Moderate 04/20/2018 Patient Education: Patient [...] paperwork for health care surrogate. 02/09/2018 Appointment: Kassnadra Argueta WPtel: [facility] [place] [address] - Annual Wellness Visit 02/09/2018 Patient Education: [...] every night. 12/16/2017 Appointment: Scarlett Spring WPtel: [facility] [place] [address] (15 min) Moderate 12/16/2017 Patient Education: Patient [...] becoming uncontrolled. 08/23/2017 Appointment: Scarlett Spring WPtel: [facility] [place] [address] (15 min) Moderate 08/23/2017 Patient Education: Patient [...] to cardiology 02/03/2017 Appointment: Kassandra Argueta WPtel: [phone] [facility] [facility] - Annual Wellness Visit 02/03/2017 [...] at home. 02/02/2017 Appointment: Scarlett Spring WPtel: [phone] [facility] (15 min) Moderate 02/02/2017 Patient Education: Patient [...] Kassandra Argueta WPtel: [facility] [place] (30 min) Complex 11/26/2016 Patient Education: Patient [...] Scarlett Spring WPtel: [facility] [place] (15 min) Moderate 10/07/2016 Patient Education: Patient Medication Summary Completed 10/07/2016 Patient Education: Obesity Completed 10/07/2016 Patient Education: Hypertension Completed 10/07/2016 Care Plan: VASCULAR STUDY Pending 10/04/2016 Care Plan: [facility] 88083[facility]8 Pending 10/04/2016 Visit Plan: Hypertension - well [...] paroxetine 09/16/2016 Appointment: Scarlett Spring WPtel: [phone] [facility] (15 min) Moderate 09/16/2016 Patient Education: Patient [...] not improve. 09/07/2016 App[facility]ment[phone] [place] (10 min) Simple 09/07/2016 Patient Education: [...] mammogram order 04/08/2016 [phone] ([facility]) Moderate 04/08/2016 Patient Education: Patient [...] 03/05/2016 [facility]ment[phone] [place] (15 min) Moderate 03/05/2016 Patient Education: [...] 12/04/2015 App[facility]ment[phone] (15 min) Moderate 12/04/2015 Patient Education: Patient [...] 11/18/2015 App[facility]ment[phone] [place] (15 min) Moderate 11/18/2015 Patient Education: Patient Medication Summary Completed 11/18/2015 Patient Education: Obesity Completed 11/18/2015 Patient Education: Hypertension Completed 11/18/2015 App[facility]ment[facility] Spring [facility]el[phone] [place] (15 min) Moderate 11/07/2015 Visit Plan: Hypertension [...] culture report. 08/28/2015 Appointment: Scarlett Spring WPtel: [address] [place], [place] [phone] (15 min) Moderate 08/28/2015 Patient Education: Patient [...] improving. 07/09/2015 Appointment: Scarlett Spring WPtel: [phone] [facility] (15 min) Moderate 07/09/2015 Patient Education: Patient [...] 03/06/2015 Appointment: [phone] [place] (S[facility] New Patient 03/06/2015 Patient Education: Patient Medication Summary Completed 03/06/2015 Patient Education: Hypertension Completed 03/06/2015 Instructions Comment . Hypertension - well controlled - continue [...] current treatment. Depression - RX for paroxetine bolster pillow or lumbar support pillow to [...] if the symptoms are not improving. . COPD - chronic problem for this patient. We have reviewed chronic treatment strategy, symptom control, and plans for acute exacerbations. No changes today to the current treatment plan as the patient is stable, monitor for acute changes. anoro samples given to the patient MONITOR BLOOD PRESSURE AND PULSE CONTINUE PHYSICAL [...] Ortho if symptoms do not improve . Hypertension - well controlled - continue [...] do not resolve or if any worse . Rash - dermatophytosis - recommended oral diflucan, topical nystatin cream, rtc in 10 days to assure healing. check of culture - may need to consider treatment with antibiotic depending on the groin culture report. . Medicare Exam - today we discussed [...] her [employer] paperwork for health care surrogate. Ibuprofen 600mg three times a s day [...] is worsening or does not improve. . Left knee pain, left calf pain - Will order x-ray, US - The pt is to use prn antiinflammatories to manage acute pain. The patient is to call the office if the pain is worsening or does not improve. . Hypertension - well controlled - continue [...] needs a high dose flu shot today. . Medicare Exam - today we discussed [...] A. Fib yesterday - Defer to cardiology take two of the metroprolol succinate 25mg [...] pneumovax and flu shot today mammogram order . Atrial fibrillation - appt with dr. corley today at 1pm - pt's ekg showed acute atrial fibrillation. Hypertension - well controlled - continue with current medications, continue with no added salt diet. Pt has been encouraged to exercise daily. The pt has been advised to call the office if there are any acute concerns about change in blood pressure readings at home. STOP LISINOPRIL -START LOSARATAN 25MG DAILY FOLLOW UP IN 2 WEEKS TO RE-EVALUATE COUGH XRAY LUMBAR SPINE PHYSICAL THERAPY WITH DIOGO PERES . HTN-onofre induced cough-stop lisinopril -start losartan -monitor blood pressure and follow up in 2 weeks Low back pain-xray lumbar spine and refer for PT CALL WEDNESDAY IF RASH NOT COMPLETELY RESOLVED . MSSA of groin and under peliqwk-lcwrtpibo-nuidvm bactrim and call if rash does not completely resolve increase losartan to 50mg daily -okay to take 2 pills of the 25mg dose until you run out refer to pain management -we will find out if anyone comes to [facility] check UA start probiotic daily . Hypertension [...] pain -refer to pain management Dysuria-check Ua . Hypertension - well controlled - continue [...] tissue three times daily x 10 days. Declined Procedure: (G0202) SCREENINGMAMMOGRAPHYDIGITAL; Declined Reason: Patient [...]
--- OUTSIDE RECORDS SUMMARY | 2018-10-11 09:53 | XMS REPORT | CCD ---
Author Author [facility] Organization [facility] Address [address] [place] [address] Phone Care Team Providers Care Inbound Sales Representative Name Role Phone PP Unavailable CCM Unavailable Summary Purpose Interface Exchange Insurance Providers Payer name Policy type / Coverage type Covered green party ID Effective Begin Date Effective End Date WPS Medicare Part B Medicare Part B [id number] Unknown [employer] Medicare Part B [id number] Unknown Family history Mother Diagnosis Age At Onset Hypertension Unknown Heart Attack Unknown Brother Diagnosis Age At Onset Heart disease Unknown Runs in the family Diagnosis Age At Onset Heart disease Unknown Daughter Diagnosis Age At Onset Heart Attack Unknown Hyperlipidemia Unknown Hypertension Unknown Social History Social History Element Codes Description Effective Dates Number of children Unknown 2 daughter lives in [place], son - does not have contact [address]: 6495192 Quit over 10 years ago 1990 - previously smoked 2ppd x 25 years. 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 Allergies, Adverse Reactions, Alerts Substance Reaction [...] Start Date Stop Date Status Fill Instructions losartan 50 mg tablet RxNorm: 557984 1 Tablet(s) PO daily 201803/13/2019 Active omeprazole 20 mg capsule,delayed release RxNorm: 369481 TAKE ONE CAPSULE BY MOUTH EVERY NIGHT AT BEDTIME 09/12/20182018 Active Keflex 500 mg capsule RxNorm: 750028 1 Capsule(s) PO TID 201808/17/2018 Inactive Keflex 500 mg capsule RxNorm: 932533 1 Capsule(s) PO TID 201808/24/2018 Inactive take probiotic while on abx paroxetine 20 mg tablet RxNorm: 5701448 TAKE ONE TABLET BY MOUTH DAILY 08/12/2018 08/06/2019 Active losartan 25 mg tablet RxNorm: 809253 1 Tablet(s) PO daily 201809/29/2018 Active losartan 25 mg tablet RxNorm: 897372 1 Tablet(s) PO daily 201809/14/2018 Inactive trazodone 50 mg tablet RxNorm: 041300 TAKE ONE TABLET BY MOUTH DAILY 07/25/2018 09/22/2018 Active Ambien 10 mg tablet RxNorm: 296819 Tablet(s) TAKE ONE TABLET BY MOUTH AT BEDTIME 06/24/2018 09/21/2018 Active trazodone 50 mg tablet RxNorm: 499436 TAKE ONE TABLET BY MOUTH DAILY 04/25/2018 07/23/2018 Inactive Ambien 10 mg tablet RxNorm: 339548 Tablet(s) TAKE ONE TABLET BY MOUTH AT BEDTIME 03/23/2018 06/19/2018 Inactive terazosin 5 mg capsule RxNorm: 835378 TAKE ONE CAPSULE BY MOUTH DAILY 03/14/2018 09/09/2018 Inactive Ambien 10 mg tablet RxNorm: 394715 Tablet(s) TAKE ONE TABLET BY MOUTH AT BEDTIME 01/18/2018 09/14/2018 Inactive trazodone 50 mg tablet RxNorm: 333790 TAKE ONE TABLET BY MOUTH ONCE DAILY 01/10/2018 03/22/2018 Inactive trazodone 50 mg tablet RxNorm: 027679 Tablet(s) TAKE ONE TABLET BY MOUTH ONCE DAILY 01/10/2018 04/24/2018 Inactive Ambien 10 mg tablet RxNorm: 643457 Tablet(s) TAKE ONE TABLET BY MOUTH AT BEDTIME 10/22/2017 01/17/2018 Inactive trazodone 50 mg tablet RxNorm: 079420 TAKE ONE TABLET BY MOUTH ONCE DAILY 10/18/2017 01/09/2018 Inactive omeprazole 20 mg capsule,delayed release RxNorm: 072343 TAKE ONE CAPSULE BY MOUTH ONCE DAILY AT BEDTIME 08/27/20172018 Inactive trazodone 50 mg tablet RxNorm: 979324 TAKE ONE TABLET BY MOUTH ONCE DAILY 08/18/2017 10/17/2017 Inactive Ambien 10 mg tablet RxNorm: 571870 Tablet(s) TAKE ONE TABLET BY MOUTH AT BEDTIME 08/18/2017 03/22/2018 Inactive paroxetine 20 mg tablet RxNorm: 2868091 TAKE ONE TABLET BY MOUTH ONCE DAILY 07/27/2017 08/11/2018 Inactive Ambien 10 mg tablet RxNorm: 801477 Tablet(s) TAKE ONE TABLET BY MOUTH AT BEDTIME 06/23/2017 03/22/2018 Inactive omeprazole 20 mg capsule,delayed release RxNorm: 387991 TAKE ONE CAPSULE BY MOUTH ONCE DAILY AT BEDTIME 04/23/20172017 Inactive trazodone 50 mg tablet RxNorm: 020499 TAKE ONE TABLET BY MOUTH ONCE DAILY 04/13/2017 08/10/2017 Inactive terazosin 5 mg capsule RxNorm: 666464 Capsule(s) TAKE ONE CAPSULE BY MOUTH DAILY 04/08/2017 03/03/2018 Inactive Ambien 10 mg tablet RxNorm: 440064 Tablet(s) TAKE ONE TABLET BY MOUTH AT BEDTIME 02/17/2017 03/22/2018 Inactive Tylenol-Codeine #3 300 mg-30 mg tablet RxNorm: 191352 1 Tablet(s) PO QID as needed 02/02/2017 03/03/2017 Inactive metoprolol succinate ER 50 mg tablet,extended release 24 hr RxNorm: 099947 TAKE ONE TABLET BY MOUTH ONCE DAILY 12/23/2016 02/02/2017 Inactive Zithromax Z-Ted 250 mg tablet RxNorm: 170043 1 Tablet(s) PO UD 11/26/2016 02/16/2017 Inactive trazodone 50 mg tablet RxNorm: 038256 TAKE ONE TABLET BY MOUTH ONCE DAILY 11/12/2016 03/11/2017 Inactive Ambien 10 mg tablet RxNorm: 353965 Tablet(s) TAKE ONE TABLET BY MOUTH AT BEDTIME 10/22/2016 02/15/2017 Inactive paroxetine 20 mg tablet RxNorm: 2262836 1 Tablet(s) PO daily TAKE ONE TABLET BY MOUTH DAILY 09/16/2016 06/12/2017 Inactive meloxicam 7.5 mg tablet RxNorm: 923186 1 Tablet(s) PO daily 11/14/2016 Inactive Protonix 40 mg tablet,delayed release RxNorm: 219132 1 Tablet(s) PO daily 09/16/2016 08/22/2017 Inactive sucralfate 1 gram tablet RxNorm: 019024 1 Tablet(s) PO TID 08/22/2017 Inactive Ambien 10 mg tablet RxNorm: 906442 Tablet(s) TAKE ONE TABLET BY MOUTH AT BEDTIME 08/24/2016 03/22/2018 Inactive trazodone 50 mg tablet RxNorm: 975511 Tablet(s) TAKE ONE TABLET BY MOUTH DAILY 07/29/2016 11/11/2016 Inactive Ambien 10 mg tablet RxNorm: 211108 TAKE ONE TABLET BY MOUTH AT BEDTIME 06/23/2016 03/22/2018 Inactive Ambien 10 mg tablet RxNorm: 298510 Tablet(s) TAKE ONE TABLET BY MOUTH EVERY NIGHT AT BEDTIME 06/22/2016 06/23/2016 Inactive Lasix 40 mg tablet RxNorm: 864143 1 Tablet(s) PO daily as needed for swelling 04/03/2016 09/15/2016 Inactive potassium chloride ER 20 mEq tablet,extended release RxNorm: 625894 1 Tablet(s) PO daily for swelling take with lasix as needed 04/03/2016 09/15/2016 Inactive Ambien 10 mg tablet RxNorm: 100474 Tablet(s) TAKE ONE TABLET BY MOUTH EVERY NIGHT AT BEDTIME 04/03/2016 03/22/2018 Inactive omeprazole 20 mg capsule,delayed release RxNorm: 356042 TAKE ONE CAPSULE BY MOUTH EVERY NIGHT AT BEDTIME 03/31/20162016 Inactive paroxetine 20 mg tablet RxNorm: 2790842 TAKE ONE TABLET BY MOUTH DAILY 03/31/2016 09/15/2016 Inactive trazodone 50 mg tablet RxNorm: 561712 TAKE ONE TABLET BY MOUTH DAILY 03/20/2016 07/28/2016 Inactive terazosin 5 mg capsule RxNorm: 220143 TAKE ONE CAPSULE BY MOUTH DAILY 03/06/2016 10/06/2016 Inactive Ambien 10 mg tablet RxNorm: 051117 Tablet(s) TAKE ONE TABLET BY MOUTH EVERY NIGHT AT BEDTIME 01/17/2016 04/02/2016 Inactive loratadine 10 mg tablet RxNorm: 919495 1 Tablet(s) PO daily 09/15/2016 Inactive mupirocin 2 % topical ointment RxNorm: 810915 1 Application TOP TID 11/18/2015 12/01/2015 Inactive metoprolol succinate ER 50 mg tablet,extended release 24 hr RxNorm: 964027 1 Tablet(s) PO daily 11/18/2015 11/11/2016 Inactive loratadine 10 mg tablet RxNorm: 352084 1 Tablet(s) PO daily 01/14/2016 Inactive Lasix 40 mg tablet RxNorm: 906345 1 Tablet(s) PO daily as needed for swelling 10/30/2015 11/28/2015 Inactive potassium chloride ER 20 mEq tablet,extended release RxNorm: 368701 1 Tablet(s) PO daily for swelling take with lasix as needed 10/30/2015 11/28/2015 Inactive Tylenol-Codeine #3 300 mg-30 mg tablet RxNorm: 156760 1 Tablet(s) PO QID as needed 10/25/2015 02/01/2017 Inactive Ambien 10 mg tablet RxNorm: 886191 Tablet(s) TAKE ONE TABLET BY MOUTH EVERY NIGHT AT BEDTIME 10/18/2015 03/22/2018 Inactive Diflucan 150 mg tablet RxNorm: 494208 1 Tablet(s) PO daily 02/201612/03/2015 Inactive Lasix 20 mg tablet RxNorm: 276390 1 Tablet(s) PO PRN fror swelling 09/27/2015 10/29/2015 Inactive potassium chloride ER 10 mEq capsule,extended release RxNorm: 312279 1 Capsule(s) PO PRN for swelling take with lasix 09/27/2015 10/29/2015 Inactive Bactrim DS 800 mg-160 mg tablet RxNorm: 013219 1 Tablet(s) PO BID 09/02/2015 09/11/2015 Inactive Bactrim DS 800 mg-160 mg tablet RxNorm: 140695 1 Tablet(s) PO BID 09/02/2015 09/01/2015 Inactive nystatin 100,000 unit/gram topical cream RxNorm: 539236 1 Gram(s) TOP TID 08/28/2015 09/26/2015 Inactive Diflucan 150 mg tablet RxNorm: 993224 1 Tablet(s) PO daily 09/201509/06/2015 Inactive betamethasone dipropionate 0.05 % topical ointment RxNorm: 373830 1 Application TOP TID to affected area 08/02/20152016 Inactive nystatin 100,000 unit/gram topical powder RxNorm: 576309 1 Gram(s) TOP QID 07/09/2015 08/01/2015 Inactive Ambien 10 mg tablet RxNorm: 671765 1 Tablet(s) PO QHS 201406/18/2015 Inactive Ambien 10 mg tablet RxNorm: 534183 TAKE ONE TABLET BY MOUTH EVERY NIGHT AT BEDTIME 06/19/2015 09/16/2015 Inactive Vitamin D2 50,000 unit capsule RxNorm: 672907 1 Capsule(s) PO QW 03/07/2015 03/06/2015 Inactive Vitamin D2 50,000 unit capsule RxNorm: 070380 1 Capsule(s) PO QW 03/07/2015 05/05/2015 Inactive terazosin 5 mg capsule RxNorm: 507396 1 Capsule(s) PO daily 06/201502/28/2016 Inactive [SAVINGS FOR NON-COVERED DRUGS -- BIN:[id number], PCN: [id number], Group: XXXXX, ID# [id number], Questions: . THIS IS NOT INSURANCE.] trazodone 50 mg tablet RxNorm: 541047 1 Tablet(s) PO daily 06/201502/28/2016 Inactive paroxetine 20 mg tablet RxNorm: 7446571 1 Tablet(s) PO daily 02/28/2016 Inactive Tylenol-Codeine #3 300 mg-30 mg tablet RxNorm: 726494 1 Tablet(s) PO QID as needed 03/06/2015 07/02/2015 Inactive amlodipine 10 mg tablet RxNorm: 102204 1 Tablet(s) PO daily 06/201511/17/2015 Inactive metoprolol succinate ER 25 mg tablet,extended release 24 hr RxNorm: 502371 1 Tablet(s) PO daily 03/06/2015 11/17/2015 Inactive omeprazole 20 mg capsule,delayed release RxNorm: 354604 1 Capsule(s) PO QHS 03/06/2015 02/28/2016 Inactive omeprazole 20 mg capsule,delayed release RxNorm: 266369 1 Capsule(s) PO QHS 01/31/2015 01/30/2015 Inactive omeprazole 20 mg capsule,delayed release RxNorm: 676188 1 Capsule(s) PO QHS 01/31/2015 01/30/2015 Inactive omeprazole 20 mg capsule,delayed release RxNorm: 226067 1 Capsule(s) PO QHS 01/31/2015 03/05/2015 Inactive Ambien 10 mg tablet RxNorm: 000336 1 Tablet(s) PO QHS 201404/21/2015 Inactive paroxetine 20 mg tablet RxNorm: 734948 1 Tablet(s) PO daily 08/201412/24/2014 Inactive Ambien 10 mg tablet RxNorm: 926272 1 Tablet(s) PO QHS 201412/24/2014 Inactive paroxetine 20 mg tablet RxNorm: 258173 1 Tablet(s) PO daily 08/201403/05/2015 Inactive terazosin 5 mg capsule RxNorm: 139348 1 Capsule(s) PO daily 07/201403/05/2015 Inactive [SAVINGS FOR NON-COVERED DRUGS -- BIN:[id number], PCN: [id number], Group: XXXXX, ID# [id number], Questions: . THIS IS NOT INSURANCE.] terazosin 5 mg capsule RxNorm: 317894 1 Capsule(s) PO daily 07/201411/22/2014 Inactive Lasix 20 mg tablet RxNorm: 974475 1 Tablet(s) PO daily No Start Date Active K-Dur 10 mEq tablet,extended release RxNorm: 172981 1 Tablet(s) PO daily No Start Date Active hydrochlorothiazide 25 mg tablet RxNorm: 399572 1 Tablet(s) PO daily No Start Date Active Vitamin D3 2,000 unit tablet RxNorm: 514322 1 Tablet(s) PO daily No Start Date Active amiodarone 200 mg tablet RxNorm: 683487 1 Tablet(s) PO BID No Start Date Active Zetia 10 mg tablet RxNorm: 923354 1 Tablet(s) PO daily No Start Date Active Lipitor 80 mg tablet RxNorm: 413960 1/2 Tablet(s) PO daily No Start Date Active Coumadin 4 mg tablet RxNorm: 362451 1 Tablet(s) PO daily No Start Date Active metoprolol succinate ER 25 mg tablet,extended release 24 hr RxNorm: 441863 1 Tablet(s) PO daily No Start Date 2014 Inactive Entresto 49 mg-51 mg tablet RxNorm: 4538624 1 Tablet(s) PO BID No Start Date 04/19/2018 Inactive sotalol 80 mg tablet RxNorm: 9013528 1 Tablet(s) PO BID No Start Date 04/19/2018 Inactive betamethasone dipropionate 0.05 % topical ointment RxNorm: 730605 1 Application TOP TID to affected area No Start Date 01/2016 Inactive trazodone 50 mg tablet RxNorm: 888598 1 Tablet(s) PO daily No Start Date 03/05/2015 Inactive potassium chloride ER 10 mEq capsule,extended release RxNorm: 428285 1 Capsule(s) PO PRN for swelling take with lasix No Start Date 09/26/2015 Inactive Eliquis 5 mg tablet RxNorm: 7654106 1 Tablet(s) PO BID No Start Date 09/14/2018 Inactive amlodipine 10 mg tablet RxNorm: 454835 1 Tablet(s) PO daily No Start Date 03/05/2015 Inactive isosorbide mononitrate ER 30 mg tablet,extended release 24 hr RxNorm: 233779 1 Tablet(s) PO daily No Start Date 2017 Inactive aspirin 81 mg tablet,delayed release RxNorm: 739595 1 Tablet(s) PO daily No Start Date 02/02/2017 Inactive Lasix 20 mg tablet RxNorm: 008929 1 Tablet(s) PO PRN fror swelling No Start Date 09/26/2015 Inactive lisinopril 5 mg tablet RxNorm: 765097 1 Tablet(s) PO daily No Start Date 07/31/2018 Inactive Crestor 40 mg tablet RxNorm: 252118 1 Tablet(s) PO daily No Start Date 09/15/2016 Inactive metoprolol succinate ER 100 mg tablet,extended release 24 hr RxNorm: 074083 1 Tablet(s) PO daily No Start Date [...] 08/15/2018 Cough ICD-10: R05 ICD-9: 786.2 08/01/2018 Encounter for immunization ICD-10: Z23 ICD-9: V03.9 04/20/2018 Major depressive disorder, recurrent, mild ICD-10: F33.0 ICD-9: 296.31 04/20/2018 Chronic atrial fibrillation ICD-10: I48.2 ICD-9: 427.31 04/20/2018 Encounter for general adult medical examination with abnormal findings ICD-10: Z00.01 ICD-9: V70.0 02/09/2018 Obstructive sleep apnea (adult) (pediatric) ICD-10: G47.33 ICD-9: 327.23 12/16/2017 Paroxysmal atrial fibrillation ICD-10: I48.0 ICD-9: 427.31 02/02/2017 Pleurodynia ICD-10: R07.81 ICD-9: 786.50 11/26/2016 Other dorsalgia ICD-10: M54.89 ICD-9: 724.5 11/26/2016 Acute laryngopharyngitis ICD-10: J06.0 ICD-9: 465.0 11/26/2016 Pain in left knee ICD-10: M25.562 ICD-9: 719.46 10/07/2016 Major depressive disorder, recurrent, moderate ICD-10: F33.1 ICD-9: 296.32 10/07/2016 Rash and other nonspecific skin eruption [...] ICD-9: 787.02 09/30/2015 Methicillin susceptible Staphylococcus aureus infection, unspecified site ICD-10: A49.01 ICD-9: 041.11 09/09/2015 Methicillin susceptible Staphylococcus aureus infection as the cause of diseases classified elsewhere ICD-10: B95.61 ICD-9: 041.11 09/09/2015 Dermatophytosis, unspecified ICD-10: B35.9 ICD-9: 110.9 08/28/2015 Gastro-esophageal reflux disease without esophagitis ICD-10 : K21.9 ICD-9: 530.81 07/09/2015 ESSENTIAL HYPERTENSION ICD-9: 401.9 03/06 Back pain ICD-9: 724.5 03/06/2015 Insomnia ICD-9: 780.52 03/06/2015 ESOPHAGEAL REFLUX ICD-9: 530.81 2014 Osteoporosis ICD-9: 733.00 03/06/2015 Reason For Visit [...] Item Item Code Result Date Culture Urine [id number] URINE CULTURE SEE NOTES 08/22/2018 Culture Urine [id number] Continued Results 08/22/2018 Urine Culture Ucult Complete >100,000 col/ml aerobic growth sent to ref lab 08/19/2018 Comp Metabolic Ous993 NA 140 mEq/L 08/01/2018 Comp Metabolic Tmz172 K 4.2 mEq/L 08/01/2018 Comp Metabolic Jtj703 CL 102 mEq/L 08/01/2018 Comp Metabolic Npn518 CO2 27.0 mEq/L 08/01/2018 Comp Metabolic Zyi506 ANION GAP 15 08/01/2018 Comp Metabolic Rsy789 GLUCOSE 107 mg/dL 08/01/2018 Comp Metabolic Xlo553 Creat 1.0 mg/dL 08/01/2018 Comp Metabolic Fyz249 eGFR 58 ml/min/1.73m2 08/01/2018 Comp Metabolic Zam473 BUN 10 mg/dL 08/01/2018 Comp Metabolic Zut116 B/C Ratio 10.0 Ratio 08/01/2018 Comp Metabolic Nas968 CALCIUM 8.9 mg/dL 08/01/2018 Comp Metabolic Tlb954 ALK PHOS 68 U/L 08/01/2018 Comp Metabolic Crg912 AST(SGOT) 18 U/L 08/01/2018 Comp Metabolic Ecs317 ALT(SGPT) 14 U/L 08/01/2018 Comp Metabolic Fsk887 BILI T 0.5 mg/dL 08/01/2018 Comp Metabolic Ogr019 ALBUMIN 4.0 g/dL 08/01/2018 Comp Metabolic Mha849 TPRO 6.3 g/dL 08/01/2018 Comp Metabolic Snr123 GLOB 2.3 g/dL 08/01/2018 Comp Metabolic Mbm738 A/G Ratio 1.7 Ratio 08/01/2018 Comp Metabolic Cxt170 Osmo 279 mOsmo 08/01/2018 Tsh Ord6 TSH [...] 19.8 % 08/01/2018 Cbc With Differential Ord2 [place]% 9.8 % 08/01/2018 Cbc With Differential Ord2 MCH 27.3 pg 08/01/2018 Cbc With Differential Ord2 MCHC 31.4 pg 08/01/2018 Cbc With Differential Ord2 Eos% 3.3 % 08/01/2018 Cbc With Differential Ord2 PLT 242 K/ul 08/01/2018 Cbc With Differential Ord2 Baso% 0.3 % 08/01/2018 Cbc With Differential Ord2 Neut ABS# 2.67 K/ul 08/01/2018 Cbc With Differential Ord2 RDW 16.1 % 08/01/2018 Cbc With Differential Ord2 Lymph ABS# 0.79 K/ul 08/01/2018 Cbc With Differential Ord2 [place] ABS# 0.4 K/ul 08/01/2018 Cbc With Differential Ord2 Eos ABS# 0.1 K/ul 08/01/2018 Cbc With Differential Ord2 Baso ABS# 0.0 K/ul 08/01/2018 Lipid Ord30 CHOL 234 mg/dL 08/01/2018 Lipid Ord30 HDL 69.0 mg/dl 08/01/2018 Lipid Ord30 TRIG 57 mg/dL 08/01/2018 Lipid Ord30 LDL 154 mg/dL 08/01/2018 Lipid Ord30 C/HDL 3.4 Ratio 08/01/2018 Comp Metabolic Ugb449 NA 137 mEq/L 09/30/2015 Comp Metabolic Dwv357 K 4.5 mEq/L 09/30/2015 Comp Metabolic Utv678 CL 102 mEq/L 09/30/2015 Comp Metabolic Nwv685 CO2 26.0 mEq/L 09/30/2015 Comp Metabolic Gnm555 ANION GAP 14 09/30/2015 Comp Metabolic Rok440 GLUCOSE 89 mg/dL 09/30/2015 Comp Metabolic Vbi178 Creat 0.8 mg/dL 09/30/2015 Comp Metabolic Mjr037 eGFR 79 ml/min/1.73m2 09/30/2015 Comp Metabolic Rei849 BUN 14 mg/dL 09/30/2015 Comp Metabolic Kyw170 B/C Ratio 18.2 Ratio 09/30/2015 Comp Metabolic Joi816 CALCIUM 8.9 mg/dL 09/30/2015 Comp Metabolic Uff644 ALK PHOS 65 U/L 09/30/2015 Comp Metabolic Uqo866 AST(SGOT) 26 U/L 09/30/2015 Comp Metabolic Hjx613 ALT(SGPT) 18 U/L 09/30/2015 Comp Metabolic Fop179 BILI T 0.6 mg/dL 09/30/2015 Comp Metabolic Nmm405 ALBUMIN 3.8 g/dL 09/30/2015 Comp Metabolic Cwi195 TPRO 6.6 g/dL 09/30/2015 Comp Metabolic Whm852 GLOB 2.8 g/dL 09/30/2015 Comp Metabolic Bhp732 A/G Ratio 1.4 Ratio 09/30/2015 Comp Metabolic Vhl679 Osmo 274 mOsmo 09/30/2015 Cbc With Differential [...] 27.7 pg 09/30/2015 Cbc With Differential Ord2 [place]% 10.7 % 09/30/2015 Cbc With Differential Ord2 [...] 1.10 K/ul 09/30/2015 Cbc With Differential Ord2 [place] ABS# 0.6 K/ul 09/30/2015 Cbc With Differential Ord2 Eos ABS# 0.2 K/ul 09/30/2015 Cbc With Differential Ord2 Baso ABS# 0.0 K/ul 09/30/2015 Cbc With Differential Ord2 New Analyzer Notice Please note new ref ranges starting 08-07-2015 due to implemntation of new five part differential hematolgy analyzer. 09/30/2015 Tsh Ord6 hTSH II 1.05 uIU/mL 03/06/2015 Comp Metabolic Ura371 NA 137 mEq/L 03/06/2015 Comp Metabolic Anz029 K 4.3 mEq/L 03/06/2015 Comp Metabolic Bdr927 CL 104 mEq/L 03/06/2015 Comp Metabolic Vmp710 CO2 28.0 mEq/L 03/06/2015 Comp Metabolic Kyo396 ANION GAP 9 03/06/2015 Comp Metabolic Ohi167 GLUCOSE 93 mg/dL 03/06/2015 Comp Metabolic Huc271 Creat 0.8 mg/dL 03/06/2015 Comp Metabolic Gmz670 eGFR 81 ml/min/1.73m2 03/06/2015 Comp Metabolic Iua986 BUN 12 mg/dL 03/06/2015 Comp Metabolic Mre698 B/C Ratio 16.0 Ratio 03/06/2015 Comp Metabolic Kpo071 CALCIUM 8.9 mg/dL 03/06/2015 Comp Metabolic Dob917 ALK PHOS 56 U/L 03/06/2015 Comp Metabolic Cvo013 AST(SGOT) 22 U/L 03/06/2015 Comp Metabolic Ddn328 ALT(SGPT) 15 U/L 03/06/2015 Comp Metabolic Bmo481 BILI T 0.4 mg/dL 03/06/2015 Comp Metabolic Pru819 ALBUMIN 4.0 g/dL 03/06/2015 Comp Metabolic Xve608 TPRO 6.5 g/dL 03/06/2015 Comp Metabolic Dep147 GLOB 2.5 g/dL 03/06/2015 Comp Metabolic Xqt896 A/G Ratio 1.6 Ratio 03/06/2015 Comp Metabolic Vvc011 Osmo 273 mOsmo 03/06/2015 Vitamin D 25 Oh Gst6918 VITAMIN D, 25 HYDROXY 28.14 ng/mL Cbc [...] clear 09/15/2018 None Full Exam - General 1995 Ears/Nose/Throat oral cavity/pharynx/larynx Overall: oropharyngeal mucosa clear 09/15/2018 None Full Exam - General 1995 Ears/Nose/Throat oral cavity/pharynx/larynx Overall: hypopharynx benign 09/15/2018 [...] distress 08/15/2018 None Full Exam - General 1995 Constitutional general appearance Overall: well nourished 08/15/2018 None Full Exam - General 1994 Constitutional general appearance Hygiene/Attention to Grooming: good hygiene 08/15/2018 None Full Exam - General 1995 Eyes conjunctiva /eyelids Overall: conjunctiva clear 08/15/2018 None Full Exam - General 1995 Eyes conjunctiva /eyelids Overall: cornea clear 08/15/2018 [...] 1995 Musculoskeletal spine, ribs and pelvis Overall: spine [...] General 1994 Ears/Nose/Throat lips/teeth/gingiva Overall: benign lips 08/01/2018 None [...] time 03/06/2015 None Full Exam - General 1995 Psychiatric mood and affect Overall: normal mood and affect 03/06/2015 None Procedures Procedure Codes Date URINALYSIS NONAUTO W/O SCOPE CPT-4: 70809 08/18/2018 ADMIN INFLUENZA VIRUS VAC CPT-4: G0008 04/20/2018 FLU VACC PRSV FREE INC ANTIG Formatting Model/CDA Sections, Assigned to/Amparo Mims CPT-4: 40239Sheyjzy 04/20/2018 PPPS, SUBSEQ VISIT CPT -4: G0439 02/09/2018 PPPS, SUBSEQ VISIT CPT -4: G0439 02/03/2017 ADMIN INFLUENZA VIRUS VAC CPT-4: G0008 04/08/2016 ADMIN PNEUMOCOCCAL VACCINE SNOMED CT: 94597181 CPT-4: G0009 04/08/2016 PNEUMOCOCCAL VACC [address]: 52075251 CPT-4: 91351 04/08/2016 FLU VACC PRSV FREE INC ANTIG CPT-4: 44643 04/08/2016 Vital Signs Date Vital 09/15/2018 Blood Pressure 1: 154/86 Code : 8480-6 BMI: 42.9 Code : 56337-3 Heart Rate 1 : 88 bpm Height: 5'7" SpO2: 94% Weight: 274 lbs 08/15/2018 Blood Pressure 1: 140/90 Code : 8480-6 BMI: 40.7 Code : 85993-4 Heart Rate 1 : 70 bpm Height: 5'7" SpO2: 93% Weight: 260 lbs 08/01/2018 Blood Pressure 1: 130/70 Code : 8480-6 BMI: 40.7 Code : 74060-1 Heart Rate 1 : 80 bpm Height: 5'7" SpO2: 93% Weight: 260 lbs 04/20/2018 Blood Pressure 1: 128/68 Code : 8480-6 BMI: 41.7 Code : 20854-3 Heart Rate 1 : 85 bpm Height: 5'7" SpO2: 94% Weight: 266 lbs 02/09/2018 Blood Pressure 1: 118/70 Code : 8480-6 BMI: 42.1 Code : 23294-9 Heart Rate 1 : 58 bpm Height: 5'7" SpO2: 94% Weight: 269 lbs 12/16/2017 Blood Pressure 1: 132/86 Code : 8480-6 BMI: 42.7 Code : 58353-6 Heart Rate 1 : 63 bpm Height: 5'7" SpO2: 94% Weight: 272 lbs 14 oz 08/23/2017 Blood Pressure 1: 150/82 Code : 8480-6 BMI: 42.0 Code : 40714-4 Heart Rate 1 : 66 bpm Height: 5'7" SpO2: 96% Weight: 268 lbs 02/03/2017 Blood Pressure 1: 138/72 Code : 8480-6 BMI: 41.2 Code : 71941-8 Heart Rate 1 : 96 bpm Height: 5'7" SpO2: 97% Weight: 263 lbs 02/02/2017 Blood Pressure 1: 140/90 Code : 8480-6 BMI: 41.2 Code : 30120-2 Heart Rate 1 : 103 bpm Height: 5'7" SpO2: 94% Weight: 263 lbs 11/26/2016 Blood Pressure 1: 152/88 Code : 8480-6 BMI: 41.0 Code : 89413-1 Heart Rate 1 : 71 bpm Height: 5'7" SpO2: 94% Temperature: 37.7 (C) / 99.8 (F) Weight: 262 lbs 10/07/2016 Blood Pressure 1: 148/82 Code : 8480-6 BMI: 41.7 Code : 25201-8 Heart Rate 1 : 58 bpm Height: 5'7" SpO2: 96% Weight: 266 lbs 09/16/2016 Blood Pressure 1: 122/70 Code : 8480-6 BMI: 42.0 Code : 48055-4 Heart Rate 1 : 65 bpm Height: 5'7" SpO2: 96% Weight: 268 lbs 09/07/2016 Blood Pressure 1: 154/60 Code : 8480-6 BMI: 42.3 Code : 57302-2 Heart Rate 1 : 101 bpm Height: 5'7" SpO2: 97% Weight: 270 lbs 04/08/2016 Blood Pressure 1: 128/70 Code : 8480-6 BMI: 41.4 Code : 89275-7 Heart Rate 1 : 62 bpm Height: 5'7" SpO2: 95% Weight: 264 lbs 8 oz 03/05/2016 Blood Pressure 1: 144/78 Code : 8480-6 Blood Pressure 1: 139/72 Code: 8480-6 BMI: 41.9 Code: 16642-1 Heart Rate 1: 71 bpm Height: 5'7" SpO2: 93% Weight: 267 lbs 8 oz 12/04/2015 Blood Pressure 1: 132/70 Code : 8480-6 BMI: 41.3 Code : 96959-5 Heart Rate 1 : 56 bpm Height: 5'7" SpO2: 96% Weight: 264 lbs 11/18/2015 Blood Pressure 1: 138/72 Code : 8480-6 BMI: 41.0 Code : 26195-3 Heart Rate 1 : 85 bpm Height: 5'7" SpO2: 93% Weight: 262 lbs 09/30/2015 Blood Pressure 1: 128/76 Code : 8480-6 BMI: 41.2 Code : 39424-1 Heart Rate 1 : 70 bpm Height: 5'7" SpO2: 93% Weight: 263 lbs 09/09/2015 Blood Pressure 1: 138/80 Code : 8480-6 BMI: 40.3 Code : 84197-8 Heart Rate 1 : 84 bpm Height: 5'7" SpO2: 95% Weight: 257 lbs 08/28/2015 Blood Pressure 1: 122/72 Code : 8480-6 BMI: 39.6 Code : 16837-5 Heart Rate 1 : 75 bpm Height: 5'7" SpO2: 96% Weight: 253 lbs 07/09/2015 Blood Pressure 1: 140/78 Code : 8480-6 Blood Pressure 1: 135/78 Code: 8480-6 BMI: 39.5 Code: 45201-9 Heart Rate 1: 62 bpm Height: 5'7" SpO2: 95% Weight: 252 lbs 03/06/2015 Blood Pressure 1: 142/88 Code : 8480-6 BMI: 39.3 Code : 43811-3 Heart Rate 1 : 65 bpm Height: [...] data Encounters Encounter Performer Location Codes Date ([id number]) [id number] EST. PATIENT, LEVEL IV Diagnosis: Essential (primary) hypertension[ICD10: I10] Diagnosis: Dysuria[ICD10: R30.0] Diagnosis: Low back pain[ICD10: M54.5] Alis Spring MD, [facility] CPT-4: 65993 09/15/2018 ([id number]) [id number] EST. PATIENT, LEVEL III Diagnosis: Essential (primary) hypertension[ICD10: I10] Diagnosis: Low back pain[ICD10: M54.5] Alis Spring MD, [facility] CPT-4: 02772 08/15/2018 ([id number]) 52706 EST. PATIENT, LEVEL III Diagnosis: Essential (primary) hypertension[ICD10: I10] Diagnosis: Cough[ICD10: R05] Diagnosis: Low back pain[ICD10: M54.5] Alis Spring MD, [facility] CPT-4: 06543 08/01/2018 ([id number]) 19718 EST. PATIENT, LEVEL IV Diagnosis: Encounter for immunization[ICD10: Z23] Diagnosis: Essential (primary) hypertension[ICD10: I10] Diagnosis: Chronic atrial fibrillation[ICD10: I48.2] Diagnosis: Major depressive disorder, recurrent, mild[ICD10: F33.0] Scarlett Spring MD, [facility] CPT-4: 16561 04/20/2018 ([id number]) 06992 EST. PATIENT, LEVEL IV Diagnosis: Essential (primary) hypertension[ICD10: I10] Diagnosis: Obstructive sleep apnea (adult) (pediatric)[ICD10: G47.33] Diagnosis: Chronic atrial fibrillation[ICD10: I48.2] Scarlett Spring MD, [facility] CPT-4: 88706 12/16/2017 ([id number]) 48809 EST. PATIENT, LEVEL IV Diagnosis: Essential (primary) hypertension[ICD10: I10] Diagnosis: Chronic atrial fibrillation[ICD10: I48.2] Scarlett Spring MD, [facility] CPT-4: 76423 08/23/2017 ([id number]) 82104 EST. PATIENT, LEVEL IV Diagnosis: Paroxysmal atrial fibrillation[ICD10: I48.0] Diagnosis: Essential (primary) hypertension[ICD10: I10] Scarlett Spring MD, [facility] CPT-4: 86081 02/02/2017 26788 EST. PATIENT, LEVEL III Diagnosis: Acute laryngopharyngitis[ICD10: J06.0] Diagnosis: Cough[ICD10: R05] Diagnosis: Pleurodynia[ICD10: R07.81] Diagnosis: Other dorsalgia[ICD10: M54.89] Kassandra Spring MD, [facility] CPT-4 : 89236 11/26/2016 ([id number]) 18610 EST. PATIENT, LEVEL IV Diagnosis: Essential (primary) hypertension[ICD10: I10] Diagnosis: Pain in left knee[ICD10: M25.562] Diagnosis: Low back pain[ICD10: M54.5] Diagnosis: Major depressive disorder, recurrent, moderate[ICD10: F33.1] Scarlett Spring MD, [facility] CPT-4: 14315 10/07/2016 ([id number]) 26863 EST. PATIENT, LEVEL IV Diagnosis: Essential (primary) hypertension[ICD10: I10] Diagnosis: Rash and other nonspecific skin eruption[ICD10: R21] Diagnosis: Major depressive disorder, recurrent, mild[ICD10: F33.0] Scarlett Spring MD, [facility] CPT-4: 40234 09/16/2016 02860 EST. PATIENT, LEVEL IV Diagnosis: Pain in left lower leg[ICD10: M79.662] Diagnosis: Pain in left knee[ICD10: M25.562] Kassandra Spring MD, [facility] CPT -4: 96085 09/07/2016 ([id number]) 20713 EST. PATIENT, LEVEL IV Diagnosis: Encounter for immunization[ICD10: Z23] Diagnosis: Essential (primary) hypertension[ICD10: I10] Diagnosis: Mixed hyperlipidemia[ICD10: E78.2] Scarlett Spring MD, [facility] CPT-4: 12840 04/08/2016 ([id number]) 18393 EST. PATIENT, LEVEL III Diagnosis: Essential (primary) hypertension[ICD10: I10] Diagnosis: Shortness of breath[ICD10: R06.02] Scarlett Spring MD, [facility] CPT-4: 31871 03/05/2016 ([id number]) 64430 EST. PATIENT, LEVEL III Diagnosis: Chronic obstructive pulmonary disease, unspecified[ICD10: J44.9] Scarlett Spring MD [facility] CPT-4: 30183 12/04/2015 ([id number]) 99490 EST. PATIENT, LEVEL IV Diagnosis: Essential (primary) hypertension[ICD10: I10] Diagnosis: Allergic rhinitis due to pollen[ICD10: J30.1] Scarlett Spring MD [facility] CPT-4: 83834 11/18/2015 ([id number]) 93147 EST. PATIENT, LEVEL IV Diagnosis: Localized edema[ICD10: R60.0] Diagnosis: Dysuria[ICD10: R30.0] Diagnosis: Essential (primary) hypertension[ICD10: I10] Diagnosis: Nausea[ICD10: R11.0] Alis Spring MD [facility] CPT-4: 67138 09/30/2015 ([id number]) 90827 EST. PATIENT, LEVEL II Diagnosis: Methicillin susceptible Staphylococcus aureus infection as the cause of diseases classified elsewhere[ICD10: B95.61] Diagnosis: Methicillin susceptible Staphylococcus aureus infection, unspecified site[ICD10: A49.01] Alis Spring MD [facility] CPT-4: 21779 09/09/2015 ([id number]) 77665 EST. PATIENT, LEVEL III Diagnosis: Dermatophytosis, unspecified[ICD10: B35.9] Diagnosis: Rash and other nonspecific skin eruption[ICD10: R21] Scarlett Spring MD [facility] CPT-4: 33990 08/28/2015 ([id number]) 33423 EST. PATIENT, LEVEL IV Diagnosis: Essential (primary) hypertension[ICD10: I10] Diagnosis: Gastro-esophageal reflux disease without esophagitis[ICD10: K21.9] Diagnosis: Other dorsalgia[ICD10: M54.89] Scarlett Spring MD [facility] CPT- 4: 21316 07/09/2015 ([id number]) OFFICE VISIT, NEW - LEVEL 4 Diagnosis: ESSENTIAL HYPERTENSION[ICD9: 401.9] Diagnosis: Osteoporosis[ICD9: 733.00] Diagnosis: Back pain[ICD9: 724.5] Diagnosis: Insomnia[ICD9: 780.52] Diagnosis: ESOPHAGEAL REFLUX[ICD9: 530.81] Scarlett Spring MD, [facility] CPT- 4: 86288 03/06/2015 Plan of Care Planned Activity Notes [...] Dysuria-check Ua 09/15/2018 Appointment: Alis Muhammad WPtel: [phone] [phone] (30 min) Complex 09/15/2018 Patient Education: Patient [...] not improve 08/15/2018 Appointment: Alis Muhammad WPtel: [phone] (30 min) Complex 08/15/2018 Patient Education: Patient Medication Summary Completed 08/15/2018 Patient Education: Back Pain Completed 08/15/2018 Visit Plan: HTN-onofre induced cough-stop lisinopril -start losartan -monitor blood pressure and follow up in 2 weeks Low back pain-xray lumbar spine and refer for PT 08/01/2018 Appointment: Alis Muhammad WPtel: [phone] (15 min) Moderate 08/01/2018 Patient Education: Patient Medication Summary Completed 08/01/2018 Patient Education: Back Pain Completed 08/01/2018 Care Plan: X-RAY EXAM L-S SPINE 3 S INC : 71344-5 Pending 08/01/2018 Visit Plan: Hypertension - well [...] shot today. 04/20/2018 Appointment: Scarlett Spring WPtel: [address] [place], [place] [id number] (15 min) Moderate 04/20/2018 Patient Education: Patient [...] surrogate. 02/09/2018 Appointment: Kassandra Argueta WPtel: [phone] [phone] [facility] - Annual Wellness Visit 02/09/2018 Patient Education: [...] every night. 12/16/2017 Appointment: Scarlett Spring WPtel: [phone] [facility] (15 min) Moderate 12/16/2017 Patient Education: Patient [...] becoming uncontrolled. 08/23/2017 Appointment: Scarlett Spring WPtel: [phone] [facility] (15 min) Moderate 08/23/2017 Patient Education: Patient [...] to cardiology 02/03/2017 Appointment: Kassandra Argueta WPtel: [facility]7 [phone] [place] [address] - Annual Wellness Visit 02/03/2017 Patient Education: [...] at home. 02/02/2017 Appointment: Scarlett Spring WPtel: [facility]3 [facility] (15 min) Moderate 02/02/2017 Patient Education: Patient [...] not improve. 11/26/2016 Appointment: Kassandra Argueta WPtel: [phone] [phone] (30 min) Complex 11/26/2016 Patient Education: Patient [...] pain symptoms. 10/07/2016 Appointment: Scarlett Spring WPtel: [facility]8 [facility] (15 min) Moderate 10/07/2016 Patient Education: Patient Medication Summary Completed 10/07/2016 Patient Education: Obesity Completed 10/07/2016 Patient Education: Hypertension Completed 10/07/2016 Care Plan: VASCULAR STUDY Pending 10/04/2016 Care Plan: X-RAY EXAM OF KNEE 3 [facility] : 77194-2 Pending 10/04/2016 Visit Plan: Hypertension - well [...] for paroxetine 09/16/2016 Appointment: Scarlett Spring WPtel: [facility] (15 min) Moderate 09/16/2016 Patient Education: Patient [...] not improve. 09/07/2016 Appointment: [facility]ass[facility] Argueta [facility]Ptel[facility] [place] (10 min) Simple 09/07/2016 Patient [...] mammogram order 04/08/2016 Appointment: Scarlett Spring WPtel: [facility]5 [facility] [place] (15 min) Moderate 04/08/2016 Patient Education: [...] 10 days. 03/05/2016 App[facility]ment: [facility] ([facility]) Moderate 03/05/2016 Patient Education: Patient Medication Summary Completed 03/05/2016 Visit Plan: COPD - chronic problem for this patient. We have reviewed chronic treatment strategy, symptom control, and plans for acute exacerbations. No changes today to the current treatment plan as the patient is stable, monitor for acute changes. anoro samples given to the patient 12/04/2015 Appointment[phone] ([facility] min) Moderate 12/04/2015 Patient Education: [...] allergy spray. 11/18/2015 Appointment: [phone] ([facility] min) Moderate 11/18/2015 Patient Education: Patient Medication Summary Completed 11/18/2015 Patient Education: Obesity Completed 11/18/2015 Patient Education: Hypertension Completed 11/18/2015 [facility]ment[phone] ([facility] min) Moderate 11/07/2015 Visit Plan: Hypertension [...] culture report. 08/28/2015 Appointment: Scarlett Spring WPtel: [address] [place], [place] [phone] (15 min) Moderate 08/28/2015 Patient Education: Patient [...] improving. 07/09/2015 [facility]ment[phone] ([facility] min) Moderate 07/09/2015 Patient Education: [...] improving. 03/06/2015 Appointment: [phone] [place] [facility] New Patient 03/06/2015 Patient Education: Patient Medication Summary Completed 03/06/2015 Patient Education: Hypertension Completed 03/06/2015 Instructions Comment increase losartan to 50mg daily -okay to take 2 pills of the 25mg dose until you run out refer to pain management -we will find out if anyone comes to dorset check UA start probiotic daily . Hypertension [...] -refer to pain management Dysuria-check Ua . Medicare Exam - today we discussed [...] tissue three times daily x 10 days. . Hypertension - well controlled - continue [...] a high dose flu shot today. . Hypertension - well controlled - continue [...] tylenol for break through pain symptoms. . Medicare Exam - today we discussed [...] A. Fib yesterday - Defer to cardiology bolster pillow or lumbar support pillow to [...] do not resolve or if any worse take two of the metroprolol succinate 25mg [...] and flu shot today mammogram order . Hypertension - well controlled - continue with current medications, continue with no added salt diet. Pt has been encouraged to exercise daily. The pt has been advised to call the office if there are any acute concerns about change in blood pressure readings at home. Rash - continue current treatment. Depression - RX for paroxetine . Atrial fibrillation - appt with dr. [...] lumbar spine and refer for PT . Rash - dermatophytosis - recommended oral [...] her DOPA paperwork for health care surrogate. CALL WEDNESDAY IF RASH NOT COMPLETELY RESOLVED . MSSA of groin and under [id number] bactrim and call if rash does not completely resolve Declined Procedure: (G0202) SCREENINGMAMMOGRAPHYDIGITAL; Declined Reason: Patient [...] current management - cpap every night. . COPD - chronic problem for this patient. We have reviewed chronic treatment strategy, symptom control, and plans for acute exacerbations. No changes today to the current treatment plan as the patient is stable, monitor for acute changes. anoro samples given to the patient . Left knee pain, left calf pain - Will order x-ray, US - The pt is to use prn antiinflammatories to manage acute pain. The patient is to call the office if the pain is worsening or does not improve. MONITOR BLOOD PRESSURE AND PULSE CONTINUE PHYSICAL [...]
[2018-10-11 09:55] LABS: BASOPHILS % (AUTO) 0 % (0-10); EOSINOPHILS # (AUTO) 0.1 10^3/uL (0.0-0.3); EOSINOPHILS % (AUTO) 1 % (0-10); HEMATOCRIT 39 % (35-52); HEMOGLOBIN 11.9 G/DL (11.5-16.0); LYMPHOCYTES # (AUTO) 0.6 X 10^3 (1.0-4.0); LYMPHOCYTES % (AUTO) 5 % (12-44); MEAN CORPUSCULAR HEMOGLOBIN 26 PG (25-34); MEAN CORPUSCULAR HGB CONC 31 G/DL (32-36); MEAN CORPUSCULAR VOLUME 84 FL (80-99); MEAN PLATELET VOLUME 10.4 FL (7.4-10.4); MONOCYTES # (AUTO) 1.1 X 10^3 (0.0-1.0); MONOCYTES % (AUTO) 8 % (0-12); NEUTROPHILS # (AUTO) 11.9 X 10^3 (1.8-7.8); NEUTROPHILS % (AUTO) 87 % (42-75); PLATELET COUNT 291 10^3/uL (130-400); RED CELL DISTRIBUTION WIDTH 16.9 % (10.0-14.5); WHITE BLOOD COUNT 13.7 10^3/uL (4.3-11.0)
--- OUTSIDE RECORDS SUMMARY | 2018-10-11 09:55 | XMS REPORT | CCD ---
Author Author [facility] Organization [facility] Address [address] [place] [address] Phone Care Team Providers Care Specialist Physicians Name Role Phone PP Unavailable CCM Unavailable Summary Purpose Interface Exchange Insurance Providers Payer name Policy type / Coverage type Covered constitution party ID Effective Begin Date Effective End Date WPS Medicare Part B Medicare Part B [id number] Unknown [employer] [place] Medicare Part B [id number] Unknown Family history Mother Diagnosis Age At Onset Hypertension Unknown Heart Attack Unknown Brother Diagnosis Age At Onset Heart disease Unknown Runs in the family Diagnosis Age At Onset Heart disease Unknown Daughter Diagnosis Age At Onset Heart Attack Unknown Hyperlipidemia Unknown Hypertension Unknown Social History Social History Element Codes Description Effective Dates Number of children Unknown 2 daughter lives in [place], son - does not have contact [address]: 2862974 Quit over 10 years ago 1990 - previously smoked 2ppd x 25 years. 11/18/2015 Marital status Unknown in 201003/06/2015 Employment Unknown Retired was a [employer] 03/06/2015 Allergies, Adverse Reactions, Alerts Substance Reaction [...] Fill Instructions losartan 50 mg tablet RxNorm: 078618 1 Tablet(s) PO daily 201803/13/2019 Active omeprazole 20 mg capsule,delayed release RxNorm: 946280 TAKE ONE CAPSULE BY MOUTH EVERY NIGHT AT BEDTIME 09/12/20182018 Active Keflex 500 mg capsule RxNorm: 692095 1 Capsule(s) PO TID 201808/17/2018 Inactive Keflex 500 mg capsule RxNorm: 316266 1 Capsule(s) PO TID 201808/24/2018 Inactive take probiotic while on abx paroxetine 20 mg tablet RxNorm: 2703915 TAKE ONE TABLET BY MOUTH DAILY 08/12/2018 08/06/2019 Active losartan 25 mg tablet RxNorm: 039034 1 Tablet(s) PO daily 201809/29/2018 Active losartan 25 mg tablet RxNorm: 188313 1 Tablet(s) PO daily 201809/14/2018 Inactive trazodone 50 mg tablet RxNorm: 245795 TAKE ONE TABLET BY MOUTH DAILY 07/25/2018 09/22/2018 Active Ambien 10 mg tablet RxNorm: 832871 Tablet(s) TAKE ONE TABLET BY MOUTH AT BEDTIME 06/24/2018 09/21/2018 Active trazodone 50 mg tablet RxNorm: 252286 TAKE ONE TABLET BY MOUTH DAILY 04/25/2018 07/23/2018 Inactive Ambien 10 mg tablet RxNorm: 856496 Tablet(s) TAKE ONE TABLET BY MOUTH AT BEDTIME 03/23/2018 06/19/2018 Inactive terazosin 5 mg capsule RxNorm: 463428 TAKE ONE CAPSULE BY MOUTH DAILY 03/14/2018 09/09/2018 Inactive Ambien 10 mg tablet RxNorm: 508935 Tablet(s) TAKE ONE TABLET BY MOUTH AT BEDTIME 01/18/2018 09/14/2018 Inactive trazodone 50 mg tablet RxNorm: 619981 TAKE ONE TABLET BY MOUTH ONCE DAILY 01/10/2018 03/22/2018 Inactive trazodone 50 mg tablet RxNorm: 017595 Tablet(s) TAKE ONE TABLET BY MOUTH ONCE DAILY 01/10/2018 04/24/2018 Inactive Ambien 10 mg tablet RxNorm: 402115 Tablet(s) TAKE ONE TABLET BY MOUTH AT BEDTIME 10/22/2017 01/17/2018 Inactive trazodone 50 mg tablet RxNorm: 777645 TAKE ONE TABLET BY MOUTH ONCE DAILY 10/18/2017 01/09/2018 Inactive omeprazole 20 mg capsule,delayed release RxNorm: 487682 TAKE ONE CAPSULE BY MOUTH ONCE DAILY AT BEDTIME 08/27/20172018 Inactive trazodone 50 mg tablet RxNorm: 913474 TAKE ONE TABLET BY MOUTH ONCE DAILY 08/18/2017 10/17/2017 Inactive Ambien 10 mg tablet RxNorm: 714295 Tablet(s) TAKE ONE TABLET BY MOUTH AT BEDTIME 08/18/2017 03/22/2018 Inactive paroxetine 20 mg tablet RxNorm: 2376885 TAKE ONE TABLET BY MOUTH ONCE DAILY 07/27/2017 08/11/2018 Inactive Ambien 10 mg tablet RxNorm: 432675 Tablet(s) TAKE ONE TABLET BY MOUTH AT BEDTIME 06/23/2017 03/22/2018 Inactive omeprazole 20 mg capsule,delayed release RxNorm: 886536 TAKE ONE CAPSULE BY MOUTH ONCE DAILY AT BEDTIME 04/23/20172017 Inactive trazodone 50 mg tablet RxNorm: 869587 TAKE ONE TABLET BY MOUTH ONCE DAILY 04/13/2017 08/10/2017 Inactive terazosin 5 mg capsule RxNorm: 294794 Capsule(s) TAKE ONE CAPSULE BY MOUTH DAILY 04/08/2017 03/03/2018 Inactive Ambien 10 mg tablet RxNorm: 226164 Tablet(s) TAKE ONE TABLET BY MOUTH AT BEDTIME 02/17/2017 03/22/2018 Inactive Tylenol-Codeine #3 300 mg-30 mg tablet RxNorm: 548073 1 Tablet(s) PO QID as needed 02/02/2017 03/03/2017 Inactive metoprolol succinate ER 50 mg tablet,extended release 24 hr RxNorm: 538942 TAKE ONE TABLET BY MOUTH ONCE DAILY 12/23/2016 02/02/2017 Inactive Zithromax Z-Ted 250 mg tablet RxNorm: 875830 1 Tablet(s) PO UD 11/26/2016 02/16/2017 Inactive trazodone 50 mg tablet RxNorm: 220876 TAKE ONE TABLET BY MOUTH ONCE DAILY 11/12/2016 03/11/2017 Inactive Ambien 10 mg tablet RxNorm: 346346 Tablet(s) TAKE ONE TABLET BY MOUTH AT BEDTIME 10/22/2016 02/15/2017 Inactive paroxetine 20 mg tablet RxNorm: 3564426 1 Tablet(s) PO daily TAKE ONE TABLET BY MOUTH DAILY 09/16/2016 06/12/2017 Inactive meloxicam 7.5 mg tablet RxNorm: 334706 1 Tablet(s) PO daily 11/14/2016 Inactive Protonix 40 mg tablet,delayed release RxNorm: 883054 1 Tablet(s) PO daily 09/16/2016 08/22/2017 Inactive sucralfate 1 gram tablet RxNorm: 609365 1 Tablet(s) PO TID 08/22/2017 Inactive Ambien 10 mg tablet RxNorm: 709472 Tablet(s) TAKE ONE TABLET BY MOUTH AT BEDTIME 08/24/2016 03/22/2018 Inactive trazodone 50 mg tablet RxNorm: 384692 Tablet(s) TAKE ONE TABLET BY MOUTH DAILY 07/29/2016 11/11/2016 Inactive Ambien 10 mg tablet RxNorm: 753599 TAKE ONE TABLET BY MOUTH AT BEDTIME 06/23/2016 03/22/2018 Inactive Ambien 10 mg tablet RxNorm: 734743 Tablet(s) TAKE ONE TABLET BY MOUTH EVERY NIGHT AT BEDTIME 06/22/2016 06/23/2016 Inactive Lasix 40 mg tablet RxNorm: 146239 1 Tablet(s) PO daily as needed for swelling 04/03/2016 09/15/2016 Inactive potassium chloride ER 20 mEq tablet,extended release RxNorm: 999122 1 Tablet(s) PO daily for swelling take with lasix as needed 04/03/2016 09/15/2016 Inactive Ambien 10 mg tablet RxNorm: 243210 Tablet(s) TAKE ONE TABLET BY MOUTH EVERY NIGHT AT BEDTIME 04/03/2016 03/22/2018 Inactive omeprazole 20 mg capsule,delayed release RxNorm: 436500 TAKE ONE CAPSULE BY MOUTH EVERY NIGHT AT BEDTIME 03/31/20162016 Inactive paroxetine 20 mg tablet RxNorm: 2541500 TAKE ONE TABLET BY MOUTH DAILY 03/31/2016 09/15/2016 Inactive trazodone 50 mg tablet RxNorm: 465514 TAKE ONE TABLET BY MOUTH DAILY 03/20/2016 07/28/2016 Inactive terazosin 5 mg capsule RxNorm: 517359 TAKE ONE CAPSULE BY MOUTH DAILY 03/06/2016 10/06/2016 Inactive Ambien 10 mg tablet RxNorm: 671318 Tablet(s) TAKE ONE TABLET BY MOUTH EVERY NIGHT AT BEDTIME 01/17/2016 04/02/2016 Inactive loratadine 10 mg tablet RxNorm: 822082 1 Tablet(s) PO daily 09/15/2016 Inactive mupirocin 2 % topical ointment RxNorm: 229135 1 Application TOP TID 11/18/2015 12/01/2015 Inactive metoprolol succinate ER 50 mg tablet,extended release 24 hr RxNorm: 553778 1 Tablet(s) PO daily 11/18/2015 11/11/2016 Inactive loratadine 10 mg tablet RxNorm: 220989 1 Tablet(s) PO daily 01/14/2016 Inactive Lasix 40 mg tablet RxNorm: 549697 1 Tablet(s) PO daily as needed for swelling 10/30/2015 11/28/2015 Inactive potassium chloride ER 20 mEq tablet,extended release RxNorm: 576710 1 Tablet(s) PO daily for swelling take with lasix as needed 10/30/2015 11/28/2015 Inactive Tylenol-Codeine #3 300 mg-30 mg tablet RxNorm: 394581 1 Tablet(s) PO QID as needed 10/25/2015 02/01/2017 Inactive Ambien 10 mg tablet RxNorm: 408270 Tablet(s) TAKE ONE TABLET BY MOUTH EVERY NIGHT AT BEDTIME 10/18/2015 03/22/2018 Inactive Diflucan 150 mg tablet RxNorm: 799018 1 Tablet(s) PO daily 02/201612/03/2015 Inactive Lasix 20 mg tablet RxNorm: 174139 1 Tablet(s) PO PRN fror swelling 09/27/2015 10/29/2015 Inactive potassium chloride ER 10 mEq capsule,extended release RxNorm: 193348 1 Capsule(s) PO PRN for swelling take with lasix 09/27/2015 10/29/2015 Inactive Bactrim DS 800 mg-160 mg tablet RxNorm: 375904 1 Tablet(s) PO BID 09/02/2015 09/11/2015 Inactive Bactrim DS 800 mg-160 mg tablet RxNorm: 994688 1 Tablet(s) PO BID 09/02/2015 09/01/2015 Inactive nystatin 100,000 unit/gram topical cream RxNorm: 865759 1 Gram(s) TOP TID 08/28/2015 09/26/2015 Inactive Diflucan 150 mg tablet RxNorm: 042967 1 Tablet(s) PO daily 09/201509/06/2015 Inactive betamethasone dipropionate 0.05 % topical ointment RxNorm: 569541 1 Application TOP TID to affected area 08/02/20152016 Inactive nystatin 100,000 unit/gram topical powder RxNorm: 504126 1 Gram(s) TOP QID 07/09/2015 08/01/2015 Inactive Ambien 10 mg tablet RxNorm: 000432 1 Tablet(s) PO QHS 201406/18/2015 Inactive Ambien 10 mg tablet RxNorm: 423700 TAKE ONE TABLET BY MOUTH EVERY NIGHT AT BEDTIME 06/19/2015 09/16/2015 Inactive Vitamin D2 50,000 unit capsule RxNorm: 416464 1 Capsule(s) PO QW 03/07/2015 03/06/2015 Inactive Vitamin D2 50,000 unit capsule RxNorm: 425190 1 Capsule(s) PO QW 03/07/2015 05/05/2015 Inactive terazosin 5 mg capsule RxNorm: 897302 1 Capsule(s) PO daily 06/201502/28/2016 Inactive [SAVINGS FOR NON-COVERED DRUGS -- BIN:[id number], PCN: [id number], Group: XXXXX, ID# [id number], Questions: . THIS IS NOT INSURANCE.] trazodone 50 mg tablet RxNorm: 386055 1 Tablet(s) PO daily 06/201502/28/2016 Inactive paroxetine 20 mg tablet RxNorm: 4924063 1 Tablet(s) PO daily 02/28/2016 Inactive Tylenol-Codeine #3 300 mg-30 mg tablet RxNorm: 342234 1 Tablet(s) PO QID as needed 03/06/2015 07/02/2015 Inactive amlodipine 10 mg tablet RxNorm: 017296 1 Tablet(s) PO daily 06/201511/17/2015 Inactive metoprolol succinate ER 25 mg tablet,extended release 24 hr RxNorm: 583070 1 Tablet(s) PO daily 03/06/2015 11/17/2015 Inactive omeprazole 20 mg capsule,delayed release RxNorm: 853588 1 Capsule(s) PO QHS 03/06/2015 02/28/2016 Inactive omeprazole 20 mg capsule,delayed release RxNorm: 437064 1 Capsule(s) PO QHS 01/31/2015 01/30/2015 Inactive omeprazole 20 mg capsule,delayed release RxNorm: 790963 1 Capsule(s) PO QHS 01/31/2015 01/30/2015 Inactive omeprazole 20 mg capsule,delayed release RxNorm: 950700 1 Capsule(s) PO QHS 01/31/2015 03/05/2015 Inactive Ambien 10 mg tablet RxNorm: 648811 1 Tablet(s) PO QHS 201404/21/2015 Inactive paroxetine 20 mg tablet RxNorm: 528353 1 Tablet(s) PO daily 08/201412/24/2014 Inactive Ambien 10 mg tablet RxNorm: 131767 1 Tablet(s) PO QHS 201412/24/2014 Inactive paroxetine 20 mg tablet RxNorm: 951466 1 Tablet(s) PO daily 08/201403/05/2015 Inactive terazosin 5 mg capsule RxNorm: 445576 1 Capsule(s) PO daily 07/201403/05/2015 Inactive [SAVINGS FOR NON-COVERED DRUGS -- BIN:[id number], PCN: ASPROD1, Group: XXXXX, ID# [id number], Questions: . THIS IS NOT INSURANCE.] terazosin 5 mg capsule RxNorm: 587241 1 Capsule(s) PO daily 07/201411/22/2014 Inactive Lasix 20 mg tablet RxNorm: 760459 1 Tablet(s) PO daily No Start Date Active K-Dur 10 mEq tablet,extended release RxNorm: 203932 1 Tablet(s) PO daily No Start Date Active hydrochlorothiazide 25 mg tablet RxNorm: 712561 1 Tablet(s) PO daily No Start Date Active Vitamin D3 2,000 unit tablet RxNorm: 292785 1 Tablet(s) PO daily No Start Date Active amiodarone 200 mg tablet RxNorm: 624467 1 Tablet(s) PO BID No Start Date Active Zetia 10 mg tablet RxNorm: 269150 1 Tablet(s) PO daily No Start Date Active Lipitor 80 mg tablet RxNorm: 394077 1/2 Tablet(s) PO daily No Start Date Active Coumadin 4 mg tablet RxNorm: 181715 1 Tablet(s) PO daily No Start Date Active metoprolol succinate ER 25 mg tablet,extended release 24 hr RxNorm: 951430 1 Tablet(s) PO daily No Start Date 2014 Inactive Entresto 49 mg-51 mg tablet RxNorm: 5941377 1 Tablet(s) PO BID No Start Date 04/19/2018 Inactive sotalol 80 mg tablet RxNorm: 9762278 1 Tablet(s) PO BID No Start Date 04/19/2018 Inactive betamethasone dipropionate 0.05 % topical ointment RxNorm: 608653 1 Application TOP TID to affected area No Start Date 01/2016 Inactive trazodone 50 mg tablet RxNorm: 237851 1 Tablet(s) PO daily No Start Date 03/05/2015 Inactive potassium chloride ER 10 mEq capsule,extended release RxNorm: 636284 1 Capsule(s) PO PRN for swelling take with lasix No Start Date 09/26/2015 Inactive Eliquis 5 mg tablet RxNorm: 1783126 1 Tablet(s) PO BID No Start Date 09/14/2018 Inactive amlodipine 10 mg tablet RxNorm: 600036 1 Tablet(s) PO daily No Start Date 03/05/2015 Inactive isosorbide mononitrate ER 30 mg tablet,extended release 24 hr RxNorm: 906577 1 Tablet(s) PO daily No Start Date 2017 Inactive aspirin 81 mg tablet,delayed release RxNorm: 634532 1 Tablet(s) PO daily No Start Date 02/02/2017 Inactive Lasix 20 mg tablet RxNorm: 743221 1 Tablet(s) PO PRN fror swelling No Start Date 09/26/2015 Inactive lisinopril 5 mg tablet RxNorm: 679304 1 Tablet(s) PO daily No Start Date 07/31/2018 Inactive Crestor 40 mg tablet RxNorm: 998845 1 Tablet(s) PO daily No Start Date 09/15/2016 Inactive metoprolol succinate ER 100 mg tablet,extended release 24 hr RxNorm: 856758 1 Tablet(s) PO daily No Start Date [...] Item Item Code Result Date Culture Urine [id number] URINE CULTURE SEE NOTES 08/22/2018 Culture Urine [id number] Continued Results 08/22/2018 Urine Culture Ucult Complete >100,000 col/ml aerobic growth sent to ref lab 08/19/2018 Comp Metabolic Ram482 NA 140 mEq/L 08/01/2018 Comp Metabolic Kja115 K 4.2 mEq/L 08/01/2018 Comp Metabolic Hxs621 CL 102 mEq/L 08/01/2018 Comp Metabolic Epy308 CO2 27.0 mEq/L 08/01/2018 Comp Metabolic Vcf919 ANION GAP 15 08/01/2018 Comp Metabolic Iqy580 GLUCOSE 107 mg/dL 08/01/2018 Comp Metabolic Kjs799 Creat 1.0 mg/dL 08/01/2018 Comp Metabolic Hhx433 eGFR 58 ml/min/1.73m2 08/01/2018 Comp Metabolic Dro794 BUN 10 mg/dL 08/01/2018 Comp Metabolic Clf218 B/C Ratio 10.0 Ratio 08/01/2018 Comp Metabolic Pgw856 CALCIUM 8.9 mg/dL 08/01/2018 Comp Metabolic Ovy644 ALK PHOS 68 U/L 08/01/2018 Comp Metabolic Lea744 AST(SGOT) 18 U/L 08/01/2018 Comp Metabolic Tul806 ALT(SGPT) 14 U/L 08/01/2018 Comp Metabolic Xdc339 BILI T 0.5 mg/dL 08/01/2018 Comp Metabolic Loy456 ALBUMIN 4.0 g/dL 08/01/2018 Comp Metabolic Lnc715 TPRO 6.3 g/dL 08/01/2018 Comp Metabolic Wej758 GLOB 2.3 g/dL 08/01/2018 Comp Metabolic Tto090 A/G Ratio 1.7 Ratio 08/01/2018 Comp Metabolic Hrz231 Osmo 279 mOsmo 08/01/2018 Tsh Ord6 TSH [...] 19.8 % 08/01/2018 Cbc With Differential Ord2 [place]% 9.8 % 08/01/2018 Cbc With Differential Ord2 MCH 27.3 pg 08/01/2018 Cbc With Differential Ord2 Eos% 3.3 % 08/01/2018 Cbc With Differential Ord2 MCHC 31.4 pg 08/01/2018 Cbc With Differential Ord2 Baso% 0.3 % 08/01/2018 Cbc With Differential Ord2 PLT 242 K/ul 08/01/2018 Cbc With Differential Ord2 Neut ABS# 2.67 K/ul 08/01/2018 Cbc With Differential Ord2 RDW 16.1 % 08/01/2018 Cbc With Differential Ord2 Lymph ABS# 0.79 K/ul 08/01/2018 Cbc With Differential Ord2 [place] ABS# 0.4 K/ul 08/01/2018 Cbc With Differential Ord2 Eos ABS# 0.1 K/ul 08/01/2018 Cbc With Differential Ord2 Baso ABS# 0.0 K/ul 08/01/2018 Lipid Ord30 CHOL 234 mg/dL 08/01/2018 Lipid Ord30 HDL 69.0 mg/dl 08/01/2018 Lipid Ord30 TRIG 57 mg/dL 08/01/2018 Lipid Ord30 LDL 154 mg/dL 08/01/2018 Lipid Ord30 C/HDL 3.4 Ratio 08/01/2018 Comp Metabolic Axb599 NA 137 mEq/L 09/30/2015 Comp Metabolic Xso834 K 4.5 mEq/L 09/30/2015 Comp Metabolic Ils465 CL 102 mEq/L 09/30/2015 Comp Metabolic Udb308 CO2 26.0 mEq/L 09/30/2015 Comp Metabolic Nrp305 ANION GAP 14 09/30/2015 Comp Metabolic Okp370 GLUCOSE 89 mg/dL 09/30/2015 Comp Metabolic Sgc158 Creat 0.8 mg/dL 09/30/2015 Comp Metabolic Ykz816 eGFR 79 ml/min/1.73m2 09/30/2015 Comp Metabolic Zoy254 BUN 14 mg/dL 09/30/2015 Comp Metabolic Cfn617 B/C Ratio 18.2 Ratio 09/30/2015 Comp Metabolic Yic254 CALCIUM 8.9 mg/dL 09/30/2015 Comp Metabolic Oji109 ALK PHOS 65 U/L 09/30/2015 Comp Metabolic Xay737 AST(SGOT) 26 U/L 09/30/2015 Comp Metabolic Rhx865 ALT(SGPT) 18 U/L 09/30/2015 Comp Metabolic Bni076 BILI T 0.6 mg/dL 09/30/2015 Comp Metabolic Edl246 ALBUMIN 3.8 g/dL 09/30/2015 Comp Metabolic Mnn171 TPRO 6.6 g/dL 09/30/2015 Comp Metabolic Xsy269 GLOB 2.8 g/dL 09/30/2015 Comp Metabolic Ehv853 A/G Ratio 1.4 Ratio 09/30/2015 Comp Metabolic Yqn100 Osmo 274 mOsmo 09/30/2015 Cbc With Differential [...] 27.7 pg 09/30/2015 Cbc With Differential Ord2 [place]% 10.7 % 09/30/2015 Cbc With Differential Ord2 [...] 1.10 K/ul 09/30/2015 Cbc With Differential Ord2 [place] ABS# 0.6 K/ul 09/30/2015 Cbc With Differential Ord2 Eos ABS# 0.2 K/ul 09/30/2015 Cbc With Differential Ord2 Baso ABS# 0.0 K/ul 09/30/2015 Cbc With Differential Ord2 New Analyzer Notice Please note new ref ranges starting 08-07-2015 due to implemntation of new five part differential hematolgy analyzer. 09/30/2015 Tsh Ord6 hTSH II 1.05 uIU/mL 03/06/2015 Comp Metabolic Fyr744 NA 137 mEq/L 03/06/2015 Comp Metabolic Epj836 K 4.3 mEq/L 03/06/2015 Comp Metabolic Ggm183 CL 104 mEq/L 03/06/2015 Comp Metabolic Dxc859 CO2 28.0 mEq/L 03/06/2015 Comp Metabolic Mvp008 ANION GAP 9 03/06/2015 Comp Metabolic Qph912 GLUCOSE 93 mg/dL 03/06/2015 Comp Metabolic Uxa839 Creat 0.8 mg/dL 03/06/2015 Comp Metabolic Rlt512 eGFR 81 ml/min/1.73m2 03/06/2015 Comp Metabolic Qbn798 BUN 12 mg/dL 03/06/2015 Comp Metabolic Vuv139 B/C Ratio 16.0 Ratio 03/06/2015 Comp Metabolic Nzi295 CALCIUM 8.9 mg/dL 03/06/2015 Comp Metabolic Wfq244 ALK PHOS 56 U/L 03/06/2015 Comp Metabolic Udo759 AST(SGOT) 22 U/L 03/06/2015 Comp Metabolic Ktj912 ALT(SGPT) 15 U/L 03/06/2015 Comp Metabolic Rqw787 BILI T 0.4 mg/dL 03/06/2015 Comp Metabolic Vcf797 ALBUMIN 4.0 g/dL 03/06/2015 Comp Metabolic Wqg631 TPRO 6.5 g/dL 03/06/2015 Comp Metabolic Xwe800 GLOB 2.5 g/dL 03/06/2015 Comp Metabolic Fwm727 A/G Ratio 1.6 Ratio 03/06/2015 Comp Metabolic Sbr303 Osmo 273 mOsmo 03/06/2015 Vitamin D 25 Oh Nqc0780 VITAMIN D, 25 HYDROXY 28.14 ng/mL Cbc [...] Codes Date URINALYSIS NONAUTO W/O SCOPE CPT-4: 47912 08/18/2018 ADMIN INFLUENZA VIRUS VAC CPT-4: G0008 04/20/2018 FLU VACC PRSV FREE INC ANTIG Formatting Model/CDA Sections, Assigned to/Amparo Mims CPT-4: 36703Dghirxm 04/20/2018 PPPS, SUBSEQ VISIT CPT -4: G0439 02/09/2018 PPPS, SUBSEQ VISIT CPT -4: G0439 02/03/2017 ADMIN INFLUENZA VIRUS VAC CPT-4: G0008 04/08/2016 ADMIN PNEUMOCOCCAL VACCINE SNOMED CT: 77467825 CPT-4: G0009 04/08/2016 PNEUMOCOCCAL VACC [address]: 70586412 CPT-4: 75034 04/08/2016 FLU VACC PRSV FREE INC ANTIG CPT-4: 95919 04/08/2016 Vital Signs Date Vital 09/15/2018 Blood Pressure 1: 154/86 Code : 8480-6 BMI: 42.9 Code : 24953-3 Heart Rate 1 : 88 bpm Height: 5'7" SpO2: 94% Weight: 274 lbs 08/15/2018 Blood Pressure 1: 140/90 Code : 8480-6 BMI: 40.7 Code : 74157-8 Heart Rate 1 : 70 bpm Height: 5'7" SpO2: 93% Weight: 260 lbs 08/01/2018 Blood Pressure 1: 130/70 Code : 8480-6 BMI: 40.7 Code : 45779-6 Heart Rate 1 : 80 bpm Height: 5'7" SpO2: 93% Weight: 260 lbs 04/20/2018 Blood Pressure 1: 128/68 Code : 8480-6 BMI: 41.7 Code : 44820-1 Heart Rate 1 : 85 bpm Height: 5'7" SpO2: 94% Weight: 266 lbs 02/09/2018 Blood Pressure 1: 118/70 Code : 8480-6 BMI: 42.1 Code : 67726-4 Heart Rate 1 : 58 bpm Height: 5'7" SpO2: 94% Weight: 269 lbs 12/16/2017 Blood Pressure 1: 132/86 Code : 8480-6 BMI: 42.7 Code : 61558-7 Heart Rate 1 : 63 bpm Height: 5'7" SpO2: 94% Weight: 272 lbs 14 oz 08/23/2017 Blood Pressure 1: 150/82 Code : 8480-6 BMI: 42.0 Code : 91068-2 Heart Rate 1 : 66 bpm Height: 5'7" SpO2: 96% Weight: 268 lbs 02/03/2017 Blood Pressure 1: 138/72 Code : 8480-6 BMI: 41.2 Code : 22482-1 Heart Rate 1 : 96 bpm Height: 5'7" SpO2: 97% Weight: 263 lbs 02/02/2017 Blood Pressure 1: 140/90 Code : 8480-6 BMI: 41.2 Code : 05355-7 Heart Rate 1 : 103 bpm Height: 5'7" SpO2: 94% Weight: 263 lbs 11/26/2016 Blood Pressure 1: 152/88 Code : 8480-6 BMI: 41.0 Code : 16237-0 Heart Rate 1 : 71 bpm Height: 5'7" SpO2: 94% Temperature: 37.7 (C) / 99.8 (F) Weight: 262 lbs 10/07/2016 Blood Pressure 1: 148/82 Code : 8480-6 BMI: 41.7 Code : 54910-1 Heart Rate 1 : 58 bpm Height: 5'7" SpO2: 96% Weight: 266 lbs 09/16/2016 Blood Pressure 1: 122/70 Code : 8480-6 BMI: 42.0 Code : 51317-7 Heart Rate 1 : 65 bpm Height: 5'7" SpO2: 96% Weight: 268 lbs 09/07/2016 Blood Pressure 1: 154/60 Code : 8480-6 BMI: 42.3 Code : 45030-7 Heart Rate 1 : 101 bpm Height: 5'7" SpO2: 97% Weight: 270 lbs 04/08/2016 Blood Pressure 1: 128/70 Code : 8480-6 BMI: 41.4 Code : 99243-9 Heart Rate 1 : 62 bpm Height: 5'7" SpO2: 95% Weight: 264 lbs 8 oz 03/05/2016 Blood Pressure 1: 144/78 Code : 8480-6 Blood Pressure 1: 139/72 Code: 8480-6 BMI: 41.9 Code: 79441-4 Heart Rate 1: 71 bpm Height: 5'7" SpO2: 93% Weight: 267 lbs 8 oz 12/04/2015 Blood Pressure 1: 132/70 Code : 8480-6 BMI: 41.3 Code : 30735-6 Heart Rate 1 : 56 bpm Height: 5'7" SpO2: 96% Weight: 264 lbs 11/18/2015 Blood Pressure 1: 138/72 Code : 8480-6 BMI: 41.0 Code : 74748-9 Heart Rate 1 : 85 bpm Height: 5'7" SpO2: 93% Weight: 262 lbs 09/30/2015 Blood Pressure 1: 128/76 Code : 8480-6 BMI: 41.2 Code : 13029-1 Heart Rate 1 : 70 bpm Height: 5'7" SpO2: 93% Weight: 263 lbs 09/09/2015 Blood Pressure 1: 138/80 Code : 8480-6 BMI: 40.3 Code : 88265-7 Heart Rate 1 : 84 bpm Height: 5'7" SpO2: 95% Weight: 257 lbs 08/28/2015 Blood Pressure 1: 122/72 Code : 8480-6 BMI: 39.6 Code : 16532-9 Heart Rate 1 : 75 bpm Height: 5'7" SpO2: 96% Weight: 253 lbs 07/09/2015 Blood Pressure 1: 135/78 Code : 8480-6 Blood Pressure 1: 140/78 Code: 8480-6 BMI: 39.5 Code: 22017-1 Heart Rate 1: 62 bpm Height: 5'7" SpO2: 95% Weight: 252 lbs 03/06/2015 Blood Pressure 1: 142/88 Code : 8480-6 BMI: 39.3 Code : 47784-4 Heart Rate 1 : 65 bpm Height: [...] data Encounters Encounter Performer Location Codes Date ([id number]) 00365 EST. PATIENT, LEVEL IV Diagnosis: Essential (primary) hypertension[ICD10: I10] Diagnosis: Dysuria[ICD10: R30.0] Diagnosis: Low back pain[ICD10: M54.5] Alis Spring MD, [facility] CPT-4: 92672 09/15/2018 ([id number]) 62913 EST. PATIENT, LEVEL III Diagnosis: Essential (primary) hypertension[ICD10: I10] Diagnosis: Low back pain[ICD10: M54.5] Alis Spring MD, [facility] CPT-4: 28788 08/15/2018 ([id number]) 82609 EST. PATIENT, LEVEL III Diagnosis: Essential (primary) hypertension[ICD10: I10] Diagnosis: Cough[ICD10: R05] Diagnosis: Low back pain[ICD10: M54.5] Alis Spring MD, [facility] CPT-4: 57786 08/01/2018 ([id number]) 81026 EST. PATIENT, LEVEL IV Diagnosis: Encounter for immunization[ICD10: Z23] Diagnosis: Essential (primary) hypertension[ICD10: I10] Diagnosis: Chronic atrial fibrillation[ICD10: I48.2] Diagnosis: Major depressive disorder, recurrent, mild[ICD10: F33.0] Scarlett Spring MD, [facility] CPT-4: 05777 04/20/2018 ([id number]) 17341 EST. PATIENT, LEVEL IV Diagnosis: Essential (primary) hypertension[ICD10: I10] Diagnosis: Obstructive sleep apnea (adult) (pediatric)[ICD10: G47.33] Diagnosis: Chronic atrial fibrillation[ICD10: I48.2] Scarlett Spring MD, [facility] CPT-4: 86707 12/16/2017 ([id number]) 77505 EST. PATIENT, LEVEL IV Diagnosis: Essential (primary) hypertension[ICD10: I10] Diagnosis: Chronic atrial fibrillation[ICD10: I48.2] Scarlett Spring MD, [facility] CPT-4: 11976 08/23/2017 ([id number]) 93551 EST. PATIENT, LEVEL IV Diagnosis: Paroxysmal atrial fibrillation[ICD10: I48.0] Diagnosis: Essential (primary) hypertension[ICD10: I10] Scarlett Spring MD, [facility] CPT-4: 78769 02/02/2017 12656 EST. PATIENT, LEVEL III Diagnosis: Acute laryngopharyngitis[ICD10: J06.0] Diagnosis: Cough[ICD10: R05] Diagnosis: Pleurodynia[ICD10: R07.81] Diagnosis: Other dorsalgia[ICD10: M54.89] Kassandra Spring MD, [facility] CPT-4 : 38641 11/26/2016 ([id number]) 19753 EST. PATIENT, LEVEL IV Diagnosis: Essential (primary) hypertension[ICD10: I10] Diagnosis: Pain in left knee[ICD10: M25.562] Diagnosis: Low back pain[ICD10: M54.5] Diagnosis: Major depressive disorder, recurrent, moderate[ICD10: F33.1] Scarlett Spring MD, [facility] CPT-4: 51484 10/07/2016 ([id number]) [id number] EST. PATIENT, LEVEL IV Diagnosis: Essential (primary) hypertension[ICD10: I10] Diagnosis: Rash and other nonspecific skin eruption[ICD10: R21] Diagnosis: Major depressive disorder, recurrent, mild[ICD10: F33.0] Scarlett Spring MD, [facility] CPT-4: 89863 09/16/2016 00074 EST. PATIENT, LEVEL IV Diagnosis: Pain in left lower leg[ICD10: M79.662] Diagnosis: Pain in left knee[ICD10: M25.562] Kassandra Spring MD, [facility] CPT -4: 35228 09/07/2016 ([id number]) 50939 EST. PATIENT, LEVEL IV Diagnosis: Encounter for immunization[ICD10: Z23] Diagnosis: Essential (primary) hypertension[ICD10: I10] Diagnosis: Mixed hyperlipidemia[ICD10: E78.2] Scarlett Spring MD, [facility] CPT-4: 50305 04/08/2016 ([id number]) 97892 EST. PATIENT, LEVEL III Diagnosis: Essential (primary) hypertension[ICD10: I10] Diagnosis: Shortness of breath[ICD10: R06.02] Scarlett Spring MD, [facility] CPT-4: 42727 03/05/2016 ([id number]) 98402 EST. PATIENT, LEVEL III Diagnosis: Chronic obstructive pulmonary disease, unspecified[ICD10: J44.9] Scarlett Spring MD [facility] CPT-4: 17662 12/04/2015 ([id number]) 18798 EST. PATIENT, LEVEL IV Diagnosis: Essential (primary) hypertension[ICD10: I10] Diagnosis: Allergic rhinitis due to pollen[ICD10: J30.1] Scarlett Spring MD [facility] CPT-4: 99609 11/18/2015 ([id number]) 65482 EST. PATIENT, LEVEL IV Diagnosis: Localized edema[ICD10: R60.0] Diagnosis: Dysuria[ICD10: R30.0] Diagnosis: Essential (primary) hypertension[ICD10: I10] Diagnosis: Nausea[ICD10: R11.0] Alis Spring MD [facility] CPT-4: 55443 09/30/2015 ([id number]) 62637 EST. PATIENT, LEVEL II Diagnosis: Methicillin susceptible Staphylococcus aureus infection as the cause of diseases classified elsewhere[ICD10: B95.61] Diagnosis: Methicillin susceptible Staphylococcus aureus infection, unspecified site[ICD10: A49.01] Alis Spring MD [facility] CPT-4: 25347 09/09/2015 ([id number]) 70688 EST. PATIENT, LEVEL III Diagnosis: Dermatophytosis, unspecified[ICD10: B35.9] Diagnosis: Rash and other nonspecific skin eruption[ICD10: R21] Scarlett Spring MD [facility] CPT-4: 29080 08/28/2015 ([id number]) 05532 EST. PATIENT, LEVEL IV Diagnosis: Essential (primary) hypertension[ICD10: I10] Diagnosis: Gastro-esophageal reflux disease without esophagitis[ICD10: K21.9] Diagnosis: Other dorsalgia[ICD10: M54.89] Scarlett Spring MD [facility] CPT- 4: 12600 07/09/2015 ([id number]) OFFICE VISIT, NEW - LEVEL 4 Diagnosis: ESSENTIAL HYPERTENSION[ICD9: 401.9] Diagnosis: Osteoporosis[ICD9: 733.00] Diagnosis: Back pain[ICD9: 724.5] Diagnosis: Insomnia[ICD9: 780.52] Diagnosis: ESOPHAGEAL REFLUX[ICD9: 530.81] Scarlett Spring MD, [facility] CPT- 4: 12976 03/06/2015 Plan of Care Planned Activity Notes [...] Ua 09/15/2018 Appointment: Alis Muhammad WPtel: [phone] [phone] (30 min) Complex 09/15/2018 Patient Education: Patient [...] not improve 08/15/2018 Appointment: Alis Muhammad WPtel: [facility]7 [phone] (30 min) Complex 08/15/2018 Patient Education: Patient Medication Summary Completed 08/15/2018 Patient Education: Back Pain Completed 08/15/2018 Visit Plan: HTN-onofre induced cough-stop lisinopril -start losartan -monitor blood pressure and follow up in 2 weeks Low back pain-xray lumbar spine and refer for PT 08/01/2018 Appointment: Alis Muhammad WPtel: [facility]7 [phone] (15 min) Moderate 08/01/2018 Patient Education: Patient Medication Summary Completed 08/01/2018 Patient Education: Back Pain Completed 08/01/2018 Care Plan: X-RAY EXAM L-S SPINE 3 S INC : 74943-1 Pending 08/01/2018 Visit Plan: Hypertension - well [...] shot today. 04/20/2018 Appointment: Scarlett Spring WPtel: [address] [place], [place] [address] (15 min) Moderate 04/20/2018 Patient Education: Patient [...] surrogate. 02/09/2018 Appointment: Kassandra Argueta WPtel: [phone] [phone] [facility] - Annual Wellness Visit 02/09/2018 Patient [...] night. 12/16/2017 Appointment: Scarlett Spring WPtel: [phone] [facility] (15 min) Moderate 12/16/2017 Patient Education: [...] uncontrolled. 08/23/2017 Appointment: Scarlett Spring WPtel: [phone] [phone] (15 min) Moderate 08/23/2017 Patient Education: Patient [...] to cardiology 02/03/2017 Appointment: Kassandra Argueta WPtel: [facility]0 [phone] [place] [address] - Annual Wellness Visit 02/03/2017 Patient Education: [...] at home. 02/02/2017 Appointment: Scarlett Spring WPtel: [facility]4 [phone] (15 min) Moderate 02/02/2017 Patient Education: Patient [...] not improve. 11/26/2016 Appointment: Kassandra Argueta WPtel: [phone] [phone] (30 min) Complex [...] pain symptoms. 10/07/2016 Appointment: Scarlett Spring WPtel: [facility]0 [facility] (15 min) Moderate 10/07/2016 Patient Education: Patient Medication Summary Completed 10/07/2016 Patient Education: Obesity Completed 10/07/2016 Patient Education: Hypertension Completed 10/07/2016 Care Plan: VASCULAR STUDY Pending 10/04/2016 Care Plan: X-RAY EXAM OF KNEE 3 [facility] : 66754-9 Pending 10/04/2016 Visit Plan: Hypertension - well [...] for paroxetine 09/16/2016 Appointment: Scarlett Spring WPtel: [facility]1 [phone] (15 min) Moderate 09/16/2016 Patient Education: Patient [...] not improve. 09/07/2016 Appointment: Kassandra Argueta WPtel: [facility] [place] [place] (10 min) Simple 09/07/2016 Patient Education: [...] mammogram order 04/08/2016 Appointment: Scarlett Spring WPtel: [facility]5 [facility] [place] (15 min) Moderate 04/08/2016 Patient Education: [...] 10 days. 03/05/2016 Appointment: Scarlett Spring WPtel: [facility] (15 min) Moderate 03/05/2016 Patient Education: Patient Medication Summary Completed 03/05/2016 Visit Plan: COPD - chronic problem for this patient. We have reviewed chronic treatment strategy, symptom control, and plans for acute exacerbations. No changes today to the current treatment plan as the patient is stable, monitor for acute changes. anoro samples given to the patient 12/04/2015 Appointment: Scarlett Spring [facility]Ptel[phone] (15 min) Moderate 12/04/2015 Patient Education: Patient [...] allergy spray. 11/18/2015 Appointment: Scarlett Spring [facility]Ptel[phone] (15 min) Moderate 11/18/2015 Patient Education: Patient Medication Summary Completed 11/18/2015 Patient Education: Obesity Completed 11/18/2015 Patient Education: Hypertension Completed 11/18/2015 Appointment: Scarlett Spring [facility]Ptel[phone] (15 min) Moderate 11/07/2015 Visit Plan: Hypertension [...] culture report. 08/28/2015 Appointment: Scarlett Spring WPtel: [address] [place], [place] [address] (15 min) Moderate 08/28/2015 Patient Education: Patient [...] improving. 07/09/2015 Appointment: Scarlett Spring [facility]Ptel[phone] (15 min) Moderate 07/09/2015 Patient Education: Patient [...] improving. 03/06/2015 Appointment: Scarlett Spring [facility]Ptel[phone] [place] ([place] New Patient 03/06/2015 Patient Education: [...] will find out if anyone comes to [place] check UA start probiotic daily . Hypertension [...] RESOLVED . MSSA of groin and under [id number] bactrim and call if rash does not [...]
--- OUTSIDE RECORDS SUMMARY | 2018-10-11 09:58 | XMS REPORT | CCD ---
Author Author [facility] Organization [facility] Address [address] [place] [address] Phone Care Team Providers Care Relief Man Name Role Phone PP Unavailable CCM Unavailable Summary Purpose Interface Exchange Insurance Providers Payer name Policy type / Coverage type Covered green party ID Effective Begin Date Effective End Date WPS Medicare Part B Medicare Part B [id number] Unknown Pod Inns [employer] Medicare Part B [id number] Unknown Family history Mother Diagnosis Age At Onset Hypertension Unknown Heart Attack Unknown Brother Diagnosis Age At Onset Heart disease Unknown Runs in the family Diagnosis Age At Onset Heart disease Unknown Daughter Diagnosis Age At Onset Heart Attack Unknown Hyperlipidemia Unknown Hypertension Unknown Social History Social History Element Codes Description Effective Dates Number of children Unknown 2 daughter lives in driver, son - does not have contact [address]: 6543505 Quit over 10 years ago 1990 - previously smoked 2ppd x 25 years. 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 Allergies, Adverse Reactions, Alerts Substance Reaction Codes Entered Date Inactivated Date Status * NO KNOWN FOOD ALLERGIES Unknown 03/06/2015 No Inactive Date Active Iodine RxNorm: 5933 03/06/2015 No Inactive Date Active Penicillin Unknown 03/06/2015 No Inactive Date Active Past Medical History Illness Codes Condition Status Onset Date Resolved Date Dysuria ICD-9: 788.1 ICD-10: R30.0 Active 09/29/2015 Unknown Essential (primary) hypertension ICD-9: 401.1 ICD-10: I10 Active 12/16/2017 Unknown Low back pain ICD-9: 724.2 ICD-10: M54.5 Active 10/07/2016 Unknown Cough ICD-9: 786.2 ICD-10: R05 Active [...] ICD-9: 327.23 ICD-10: G47.33 Active 12/16/2017 Unknown Essential (primary) hypertension ICD-9: 401.9 ICD-10: [...] R30.0 09/29/2015 Active Essential (primary) hypertension ICD-9: 401.1 ICD-10: I10 12/16/2017 Active Low back pain ICD-9: 724.2 ICD-10: M54.5 10/07/2016 Active Cough ICD-9: 786.2 ICD-10: R05 11/26/2016 Active Chronic atrial fibrillation ICD-9: 427.31 ICD-10: I48.2 08/23/2017 Active Encounter for immunization ICD-9: V03.9 ICD-10: Z23 04/07/2016 Active Major depressive disorder, recurrent, 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-10: F33.0 09/16/2016 Active Encounter for general adult medical examination with abnormal findings ICD-9: V70.0 ICD-10: Z00.01 02/03/2017 Active Obstructive sleep apnea (adult) (pediatric) ICD-9: 327.23 ICD-10: G47.33 12/16/2017 Active Essential (primary) hypertension ICD-9: 401.9 ICD-10: [...] Instructions omeprazole 20 mg capsule,delayed release RxNorm: 631673 TAKE ONE CAPSULE BY MOUTH EVERY NIGHT AT BEDTIME 09/12/20182018 Active Keflex 500 mg capsule RxNorm: 141291 1 Capsule(s) PO TID 201808/17/2018 Inactive Keflex 500 mg capsule RxNorm: 972956 1 Capsule(s) PO TID 201808/24/2018 Inactive take probiotic while on abx paroxetine 20 mg tablet RxNorm: 9702620 TAKE ONE TABLET BY MOUTH DAILY 08/12/2018 08/06/2019 Active losartan 25 mg tablet RxNorm: 904847 1 Tablet(s) PO daily 201809/29/2018 Active losartan 25 mg tablet RxNorm: 543936 1 Tablet(s) PO daily 201809/29/2018 Active trazodone 50 mg tablet RxNorm: 843879 TAKE ONE TABLET BY MOUTH DAILY 07/25/2018 09/22/2018 Active Ambien 10 mg tablet RxNorm: 269193 Tablet(s) TAKE ONE TABLET BY MOUTH AT BEDTIME 06/24/2018 09/21/2018 Active trazodone 50 mg tablet RxNorm: 645143 TAKE ONE TABLET BY MOUTH DAILY 04/25/2018 07/23/2018 Inactive Ambien 10 mg tablet RxNorm: 329247 Tablet(s) TAKE ONE TABLET BY MOUTH AT BEDTIME 03/23/2018 06/19/2018 Inactive terazosin 5 mg capsule RxNorm: 882331 TAKE ONE CAPSULE BY MOUTH DAILY 03/14/2018 09/09/2018 Inactive Ambien 10 mg tablet RxNorm: 968026 Tablet(s) TAKE ONE TABLET BY MOUTH AT BEDTIME 01/18/2018 03/17/2018 Inactive trazodone 50 mg tablet RxNorm: 972849 TAKE ONE TABLET BY MOUTH ONCE DAILY 01/10/2018 03/22/2018 Inactive trazodone 50 mg tablet RxNorm: 073279 Tablet(s) TAKE ONE TABLET BY MOUTH ONCE DAILY 01/10/2018 04/24/2018 Inactive Ambien 10 mg tablet RxNorm: 414655 Tablet(s) TAKE ONE TABLET BY MOUTH AT BEDTIME 10/22/2017 01/17/2018 Inactive trazodone 50 mg tablet RxNorm: 702120 TAKE ONE TABLET BY MOUTH ONCE DAILY 10/18/2017 01/09/2018 Inactive omeprazole 20 mg capsule,delayed release RxNorm: 451361 TAKE ONE CAPSULE BY MOUTH ONCE DAILY AT BEDTIME 08/27/20172018 Inactive trazodone 50 mg tablet RxNorm: 727122 TAKE ONE TABLET BY MOUTH ONCE DAILY 08/18/2017 10/17/2017 Inactive Ambien 10 mg tablet RxNorm: 067156 Tablet(s) TAKE ONE TABLET BY MOUTH AT BEDTIME 08/18/2017 03/22/2018 Inactive paroxetine 20 mg tablet RxNorm: 6007967 TAKE ONE TABLET BY MOUTH ONCE DAILY 07/27/2017 08/11/2018 Inactive Ambien 10 mg tablet RxNorm: 471151 Tablet(s) TAKE ONE TABLET BY MOUTH AT BEDTIME 06/23/2017 03/22/2018 Inactive omeprazole 20 mg capsule,delayed release RxNorm: 372436 TAKE ONE CAPSULE BY MOUTH ONCE DAILY AT BEDTIME 04/23/20172017 Inactive trazodone 50 mg tablet RxNorm: 979061 TAKE ONE TABLET BY MOUTH ONCE DAILY 04/13/2017 08/10/2017 Inactive terazosin 5 mg capsule RxNorm: 353768 Capsule(s) TAKE ONE CAPSULE BY MOUTH DAILY 04/08/2017 03/03/2018 Inactive Ambien 10 mg tablet RxNorm: 666747 Tablet(s) TAKE ONE TABLET BY MOUTH AT BEDTIME 02/17/2017 03/22/2018 Inactive Tylenol-Codeine #3 300 mg-30 mg tablet RxNorm: 312862 1 Tablet(s) PO QID as needed 02/02/2017 03/03/2017 Inactive metoprolol succinate ER 50 mg tablet,extended release 24 hr RxNorm: 923312 TAKE ONE TABLET BY MOUTH ONCE DAILY 12/23/2016 02/02/2017 Inactive Zithromax Z-Ted 250 mg tablet RxNorm: 794987 1 Tablet(s) PO UD 11/26/2016 02/16/2017 Inactive trazodone 50 mg tablet RxNorm: 693841 TAKE ONE TABLET BY MOUTH ONCE DAILY 11/12/2016 03/11/2017 Inactive Ambien 10 mg tablet RxNorm: 664429 Tablet(s) TAKE ONE TABLET BY MOUTH AT BEDTIME 10/22/2016 02/15/2017 Inactive paroxetine 20 mg tablet RxNorm: 4634165 1 Tablet(s) PO daily TAKE ONE TABLET BY MOUTH DAILY 09/16/2016 06/12/2017 Inactive meloxicam 7.5 mg tablet RxNorm: 427404 1 Tablet(s) PO daily 11/14/2016 Inactive Protonix 40 mg tablet,delayed release RxNorm: 780161 1 Tablet(s) PO daily 09/16/2016 08/22/2017 Inactive sucralfate 1 gram tablet RxNorm: 505810 1 Tablet(s) PO TID 08/22/2017 Inactive Ambien 10 mg tablet RxNorm: 046318 Tablet(s) TAKE ONE TABLET BY MOUTH AT BEDTIME 08/24/2016 03/22/2018 Inactive trazodone 50 mg tablet RxNorm: 146139 Tablet(s) TAKE ONE TABLET BY MOUTH DAILY 07/29/2016 11/11/2016 Inactive Ambien 10 mg tablet RxNorm: 007101 TAKE ONE TABLET BY MOUTH AT BEDTIME 06/23/2016 03/22/2018 Inactive Ambien 10 mg tablet RxNorm: 407412 Tablet(s) TAKE ONE TABLET BY MOUTH EVERY NIGHT AT BEDTIME 06/22/2016 06/23/2016 Inactive Lasix 40 mg tablet RxNorm: 800704 1 Tablet(s) PO daily as needed for swelling 04/03/2016 09/15/2016 Inactive potassium chloride ER 20 mEq tablet,extended release RxNorm: 470950 1 Tablet(s) PO daily for swelling take with lasix as needed 04/03/2016 09/15/2016 Inactive Ambien 10 mg tablet RxNorm: 779098 Tablet(s) TAKE ONE TABLET BY MOUTH EVERY NIGHT AT BEDTIME 04/03/2016 03/22/2018 Inactive omeprazole 20 mg capsule,delayed release RxNorm: 471715 TAKE ONE CAPSULE BY MOUTH EVERY NIGHT AT BEDTIME 03/31/20162016 Inactive paroxetine 20 mg tablet RxNorm: 8834760 TAKE ONE TABLET BY MOUTH DAILY 03/31/2016 09/15/2016 Inactive trazodone 50 mg tablet RxNorm: 399702 TAKE ONE TABLET BY MOUTH DAILY 03/20/2016 07/28/2016 Inactive terazosin 5 mg capsule RxNorm: 692092 TAKE ONE CAPSULE BY MOUTH DAILY 03/06/2016 10/06/2016 Inactive Ambien 10 mg tablet RxNorm: 120446 Tablet(s) TAKE ONE TABLET BY MOUTH EVERY NIGHT AT BEDTIME 01/17/2016 04/02/2016 Inactive loratadine 10 mg tablet RxNorm: 649968 1 Tablet(s) PO daily 09/15/2016 Inactive mupirocin 2 % topical ointment RxNorm: 196187 1 Application TOP TID 11/18/2015 12/01/2015 Inactive metoprolol succinate ER 50 mg tablet,extended release 24 hr RxNorm: 745134 1 Tablet(s) PO daily 11/18/2015 11/11/2016 Inactive loratadine 10 mg tablet RxNorm: 977552 1 Tablet(s) PO daily 01/14/2016 Inactive Lasix 40 mg tablet RxNorm: 527409 1 Tablet(s) PO daily as needed for swelling 10/30/2015 11/28/2015 Inactive potassium chloride ER 20 mEq tablet,extended release RxNorm: 979362 1 Tablet(s) PO daily for swelling take with lasix as needed 10/30/2015 11/28/2015 Inactive Tylenol-Codeine #3 300 mg-30 mg tablet RxNorm: 447942 1 Tablet(s) PO QID as needed 10/25/2015 02/01/2017 Inactive Ambien 10 mg tablet RxNorm: 152470 Tablet(s) TAKE ONE TABLET BY MOUTH EVERY NIGHT AT BEDTIME 10/18/2015 03/22/2018 Inactive Diflucan 150 mg tablet RxNorm: 349409 1 Tablet(s) PO daily 02/201612/03/2015 Inactive Lasix 20 mg tablet RxNorm: 541706 1 Tablet(s) PO PRN fror swelling 09/27/2015 10/29/2015 Inactive potassium chloride ER 10 mEq capsule,extended release RxNorm: 359015 1 Capsule(s) PO PRN for swelling take with lasix 09/27/2015 10/29/2015 Inactive Bactrim DS 800 mg-160 mg tablet RxNorm: 962228 1 Tablet(s) PO BID 09/02/2015 09/11/2015 Inactive Bactrim DS 800 mg-160 mg tablet RxNorm: 934550 1 Tablet(s) PO BID 09/02/2015 09/01/2015 Inactive nystatin 100,000 unit/gram topical cream RxNorm: 172779 1 Gram(s) TOP TID 08/28/2015 09/26/2015 Inactive Diflucan 150 mg tablet RxNorm: 768300 1 Tablet(s) PO daily 09/201509/06/2015 Inactive betamethasone dipropionate 0.05 % topical ointment RxNorm: 167542 1 Application TOP TID to affected area 08/02/20152016 Inactive nystatin 100,000 unit/gram topical powder RxNorm: 550092 1 Gram(s) TOP QID 07/09/2015 08/01/2015 Inactive Ambien 10 mg tablet RxNorm: 005525 1 Tablet(s) PO QHS 201406/18/2015 Inactive Ambien 10 mg tablet RxNorm: 365991 TAKE ONE TABLET BY MOUTH EVERY NIGHT AT BEDTIME 06/19/2015 09/16/2015 Inactive Vitamin D2 50,000 unit capsule RxNorm: 125746 1 Capsule(s) PO QW 03/07/2015 03/06/2015 Inactive Vitamin D2 50,000 unit capsule RxNorm: 416329 1 Capsule(s) PO QW 03/07/2015 05/05/2015 Inactive terazosin 5 mg capsule RxNorm: 741580 1 Capsule(s) PO daily 06/201502/28/2016 Inactive [SAVINGS FOR NON-COVERED DRUGS -- BIN:[id number], PCN: [id number], Group: XXXXX, ID# [id number], Questions: . THIS IS NOT INSURANCE.] trazodone 50 mg tablet RxNorm: 450337 1 Tablet(s) PO daily 06/201502/28/2016 Inactive paroxetine 20 mg tablet RxNorm: 4140128 1 Tablet(s) PO daily 02/28/2016 Inactive Tylenol-Codeine #3 300 mg-30 mg tablet RxNorm: 474242 1 Tablet(s) PO QID as needed 03/06/2015 07/02/2015 Inactive amlodipine 10 mg tablet RxNorm: 647038 1 Tablet(s) PO daily 06/201511/17/2015 Inactive metoprolol succinate ER 25 mg tablet,extended release 24 hr RxNorm: 009082 1 Tablet(s) PO daily 03/06/2015 11/17/2015 Inactive omeprazole 20 mg capsule,delayed release RxNorm: 028481 1 Capsule(s) PO QHS 03/06/2015 02/28/2016 Inactive omeprazole 20 mg capsule,delayed release RxNorm: 187501 1 Capsule(s) PO QHS 01/31/2015 01/30/2015 Inactive omeprazole 20 mg capsule,delayed release RxNorm: 230237 1 Capsule(s) PO QHS 01/31/2015 01/30/2015 Inactive omeprazole 20 mg capsule,delayed release RxNorm: 794314 1 Capsule(s) PO QHS 01/31/2015 03/05/2015 Inactive Ambien 10 mg tablet RxNorm: 669078 1 Tablet(s) PO QHS 201404/21/2015 Inactive paroxetine 20 mg tablet RxNorm: 621025 1 Tablet(s) PO daily 08/201412/24/2014 Inactive Ambien 10 mg tablet RxNorm: 436515 1 Tablet(s) PO QHS 201412/24/2014 Inactive paroxetine 20 mg tablet RxNorm: 619826 1 Tablet(s) PO daily 08/201403/05/2015 Inactive terazosin 5 mg capsule RxNorm: 641709 1 Capsule(s) PO daily 07/201403/05/2015 Inactive [SAVINGS FOR NON-COVERED DRUGS -- BIN:[id number], PCN: ASPROD1, Group: XXXXX, ID# [id number], Questions: . THIS IS NOT INSURANCE.] terazosin 5 mg capsule RxNorm: 649481 1 Capsule(s) PO daily 07/201411/22/2014 Inactive Lasix 20 mg tablet RxNorm: 493519 1 Tablet(s) PO daily No Start Date Active K-Dur 10 mEq tablet,extended release RxNorm: 527304 1 Tablet(s) PO daily No Start Date Active hydrochlorothiazide 25 mg tablet RxNorm: 512098 1 Tablet(s) PO daily No Start Date Active Eliquis 5 mg tablet RxNorm: 8785073 1 Tablet(s) PO BID No Start Date Active Vitamin D3 2,000 unit tablet RxNorm: 066552 1 Tablet(s) PO daily No Start Date Active amiodarone 200 mg tablet RxNorm: 082953 1 Tablet(s) PO BID No Start Date Active Zetia 10 mg tablet RxNorm: 647613 1 Tablet(s) PO daily No Start Date Active Lipitor 80 mg tablet RxNorm: 995702 1/2 Tablet(s) PO daily No Start Date Active metoprolol succinate ER 25 mg tablet,extended release 24 hr RxNorm: 648728 1 Tablet(s) PO daily No Start Date 2014 Inactive Entresto 49 mg-51 mg tablet RxNorm: 5070730 1 Tablet(s) PO BID No Start Date 04/19/2018 Inactive sotalol 80 mg tablet RxNorm: 7918620 1 Tablet(s) PO BID No Start Date 04/19/2018 Inactive betamethasone dipropionate 0.05 % topical ointment RxNorm: 732333 1 Application TOP TID to affected area No Start Date 01/2016 Inactive trazodone 50 mg tablet RxNorm: 143201 1 Tablet(s) PO daily No Start Date 03/05/2015 Inactive potassium chloride ER 10 mEq capsule,extended release RxNorm: 055846 1 Capsule(s) PO PRN for swelling take with lasix No Start Date 09/26/2015 Inactive amlodipine 10 mg tablet RxNorm: 714621 1 Tablet(s) PO daily No Start Date 03/05/2015 Inactive isosorbide mononitrate ER 30 mg tablet,extended release 24 hr RxNorm: 895944 1 Tablet(s) PO daily No Start Date 2017 Inactive aspirin 81 mg tablet,delayed release RxNorm: 161788 1 Tablet(s) PO daily No Start Date 02/02/2017 Inactive Lasix 20 mg tablet RxNorm: 280911 1 Tablet(s) PO PRN fror swelling No Start Date 09/26/2015 Inactive lisinopril 5 mg tablet RxNorm: 035538 1 Tablet(s) PO daily No Start Date 07/31/2018 Inactive Crestor 40 mg tablet RxNorm: 986381 1 Tablet(s) PO daily No Start Date 09/15/2016 Inactive metoprolol succinate ER 100 mg tablet,extended release 24 hr RxNorm: 573190 1 Tablet(s) PO daily No Start Date 2017 Inactive Medication Administered No Medication Administered data Immunizations Vaccine Codes Date Status Influenza CVX: 141 04/20/2018 completed Influenza CVX: 141 04/08/2016 completed Pneumococcal (Adult) CVX: 133 04/08/2016 completed Assessments Condition Codes Effective Dates Dysuria ICD-10: R30.0 ICD-9: 788.1 08/18/2018 Low back pain ICD-10: M54.5 ICD-9: 724.2 08/15/2018 Essential (primary) hypertension ICD-10: I10 ICD-9: 401.1 [...] (adult) (pediatric) ICD-10: G47.33 ICD-9: 327.23 12/16/2017 Essential (primary) hypertension ICD-10: I10 ICD-9: 401.9 08/23/2017 Paroxysmal atrial fibrillation ICD-10: I48.0 ICD-9: 427.31 [...] Visit Reason For Visit Effective Dates Notes blood pressure followup 08/15/2018 cough 08/01/2018 hypertension [...] Item Item Code Result Date Culture Urine [id number] URINE CULTURE SEE NOTES 08/22/2018 Culture Urine [id number] Continued Results 08/22/2018 Urine Culture Ucult Complete >100,000 col/ml aerobic growth sent to ref lab 08/19/2018 Comp Metabolic Jja400 NA 140 mEq/L 08/01/2018 Comp Metabolic Aun450 K 4.2 mEq/L 08/01/2018 Comp Metabolic Hwe473 CL 102 mEq/L 08/01/2018 Comp Metabolic Ujn219 CO2 27.0 mEq/L 08/01/2018 Comp Metabolic Nos076 ANION GAP 15 08/01/2018 Comp Metabolic Lyx939 GLUCOSE 107 mg/dL 08/01/2018 Comp Metabolic Riu764 Creat 1.0 mg/dL 08/01/2018 Comp Metabolic Nho366 eGFR 58 ml/min/1.73m2 08/01/2018 Comp Metabolic Wss789 BUN 10 mg/dL 08/01/2018 Comp Metabolic Unk345 B/C Ratio 10.0 Ratio 08/01/2018 Comp Metabolic Kdz854 CALCIUM 8.9 mg/dL 08/01/2018 Comp Metabolic Dcf965 ALK PHOS 68 U/L 08/01/2018 Comp Metabolic Peh746 AST(SGOT) 18 U/L 08/01/2018 Comp Metabolic Dpl110 ALT(SGPT) 14 U/L 08/01/2018 Comp Metabolic Fdn885 BILI T 0.5 mg/dL 08/01/2018 Comp Metabolic Mvp645 ALBUMIN 4.0 g/dL 08/01/2018 Comp Metabolic Xgm200 TPRO 6.3 g/dL 08/01/2018 Comp Metabolic Txj787 GLOB 2.3 g/dL 08/01/2018 Comp Metabolic Bkb994 A/G Ratio 1.7 Ratio 08/01/2018 Comp Metabolic Cgw761 Osmo 279 mOsmo 08/01/2018 Tsh Ord6 TSH [...] 19.8 % 08/01/2018 Cbc With Differential Ord2 [place]% 9.8 % 08/01/2018 Cbc With Differential Ord2 [...] 0.79 K/ul 08/01/2018 Cbc With Differential Ord2 [place] ABS# 0.4 K/ul 08/01/2018 Cbc With Differential Ord2 Eos ABS# 0.1 K/ul 08/01/2018 Cbc With Differential Ord2 Baso ABS# 0.0 K/ul 08/01/2018 Lipid Ord30 CHOL 234 mg/dL 08/01/2018 Lipid Ord30 HDL 69.0 mg/dl 08/01/2018 Lipid Ord30 TRIG 57 mg/dL 08/01/2018 Lipid Ord30 LDL 154 mg/dL 08/01/2018 Lipid Ord30 C/HDL 3.4 Ratio 08/01/2018 Comp Metabolic Ddn715 NA 137 mEq/L 09/30/2015 Comp Metabolic Vsi491 K 4.5 mEq/L 09/30/2015 Comp Metabolic Ded272 CL 102 mEq/L 09/30/2015 Comp Metabolic Och601 CO2 26.0 mEq/L 09/30/2015 Comp Metabolic Nrb400 ANION GAP 14 09/30/2015 Comp Metabolic Hfo506 GLUCOSE 89 mg/dL 09/30/2015 Comp Metabolic Wfk444 Creat 0.8 mg/dL 09/30/2015 Comp Metabolic Adr095 eGFR 79 ml/min/1.73m2 09/30/2015 Comp Metabolic Fiu096 BUN 14 mg/dL 09/30/2015 Comp Metabolic Fmi642 B/C Ratio 18.2 Ratio 09/30/2015 Comp Metabolic Lls838 CALCIUM 8.9 mg/dL 09/30/2015 Comp Metabolic Zkp592 ALK PHOS 65 U/L 09/30/2015 Comp Metabolic Gkl543 AST(SGOT) 26 U/L 09/30/2015 Comp Metabolic Jom888 ALT(SGPT) 18 U/L 09/30/2015 Comp Metabolic Skx598 BILI T 0.6 mg/dL 09/30/2015 Comp Metabolic Jbj042 ALBUMIN 3.8 g/dL 09/30/2015 Comp Metabolic Tzf840 TPRO 6.6 g/dL 09/30/2015 Comp Metabolic Ntz718 GLOB 2.8 g/dL 09/30/2015 Comp Metabolic Unm602 A/G Ratio 1.4 Ratio 09/30/2015 Comp Metabolic Kxu337 Osmo 274 mOsmo 09/30/2015 Cbc With Differential [...] 27.7 pg 09/30/2015 Cbc With Differential Ord2 [place]% 10.7 % 09/30/2015 Cbc With Differential Ord2 [...] 1.10 K/ul 09/30/2015 Cbc With Differential Ord2 [place] ABS# 0.6 K/ul 09/30/2015 Cbc With Differential Ord2 Eos ABS# 0.2 K/ul 09/30/2015 Cbc With Differential Ord2 Baso ABS# 0.0 K/ul 09/30/2015 Cbc With Differential Ord2 New Analyzer Notice Please note new ref ranges starting 08-07-2015 due to implemntation of new five part differential hematolgy analyzer. 09/30/2015 Tsh Ord6 hTSH II 1.05 uIU/mL 03/06/2015 Comp Metabolic Ltr177 NA 137 mEq/L 03/06/2015 Comp Metabolic Xax021 K 4.3 mEq/L 03/06/2015 Comp Metabolic Tul006 CL 104 mEq/L 03/06/2015 Comp Metabolic Rmc968 CO2 28.0 mEq/L 03/06/2015 Comp Metabolic See887 ANION GAP 9 03/06/2015 Comp Metabolic Jbs908 GLUCOSE 93 mg/dL 03/06/2015 Comp Metabolic Apb615 Creat 0.8 mg/dL 03/06/2015 Comp Metabolic Sur913 eGFR 81 ml/min/1.73m2 03/06/2015 Comp Metabolic Cif425 BUN 12 mg/dL 03/06/2015 Comp Metabolic Utg124 B/C Ratio 16.0 Ratio 03/06/2015 Comp Metabolic Moq947 CALCIUM 8.9 mg/dL 03/06/2015 Comp Metabolic Crp474 ALK PHOS 56 U/L 03/06/2015 Comp Metabolic Wsw844 AST(SGOT) 22 U/L 03/06/2015 Comp Metabolic Hri462 ALT(SGPT) 15 U/L 03/06/2015 Comp Metabolic Ckv853 BILI T 0.4 mg/dL 03/06/2015 Comp Metabolic Wqb531 ALBUMIN 4.0 g/dL 03/06/2015 Comp Metabolic Qmh818 TPRO 6.5 g/dL 03/06/2015 Comp Metabolic Hpd147 GLOB 2.5 g/dL 03/06/2015 Comp Metabolic Qdx128 A/G Ratio 1.6 Ratio 03/06/2015 Comp Metabolic Lfm162 Osmo 273 mOsmo 03/06/2015 Vitamin D 25 Oh Bcc8218 VITAMIN D, 25 HYDROXY 28.14 ng/mL Cbc [...] System Result Effective Dates Constitutional recent illness 08/15/2018 Constitutional No chills [...] Codes Date URINALYSIS NONAUTO W/O SCOPE CPT-4: 60764 08/18/2018 ADMIN INFLUENZA VIRUS VAC CPT-4: G0008 04/20/2018 FLU VACC PRSV FREE INC ANTIG Formatting Model/CDA Sections, Assigned to/Amparo Mims CPT-4: 56090Ayyoupz 04/20/2018 PPPS, SUBSEQ VISIT CPT -4: G0439 02/09/2018 PPPS, SUBSEQ VISIT CPT -4: G0439 02/03/2017 ADMIN INFLUENZA VIRUS VAC CPT-4: G0008 04/08/2016 ADMIN PNEUMOCOCCAL VACCINE SNOMED CT: 52357838 CPT-4: G0009 04/08/2016 PNEUMOCOCCAL VACC [address]: 53915584 CPT-4: 09649 04/08/2016 FLU VACC PRSV FREE INC ANTIG CPT-4: 68901 04/08/2016 Vital Signs Date Vital 08/15/2018 Blood Pressure 1: 140/90 Code : 8480-6 BMI: 40.7 Code : 85129-2 Heart Rate 1 : 70 bpm Height: 5'7" SpO2: 93% Weight: 260 lbs 08/01/2018 Blood Pressure 1: 130/70 Code : 8480-6 BMI: 40.7 Code : 79546-1 Heart Rate 1 : 80 bpm Height: 5'7" SpO2: 93% Weight: 260 lbs 04/20/2018 Blood Pressure 1: 128/68 Code : 8480-6 BMI: 41.7 Code : 07590-3 Heart Rate 1 : 85 bpm Height: 5'7" SpO2: 94% Weight: 266 lbs 02/09/2018 Blood Pressure 1: 118/70 Code : 8480-6 BMI: 42.1 Code : 07408-3 Heart Rate 1 : 58 bpm Height: 5'7" SpO2: 94% Weight: 269 lbs 12/16/2017 Blood Pressure 1: 132/86 Code : 8480-6 BMI: 42.7 Code : 28320-4 Heart Rate 1 : 63 bpm Height: 5'7" SpO2: 94% Weight: 272 lbs 14 oz 08/23/2017 Blood Pressure 1: 150/82 Code : 8480-6 BMI: 42.0 Code : 29881-1 Heart Rate 1 : 66 bpm Height: 5'7" SpO2: 96% Weight: 268 lbs 02/03/2017 Blood Pressure 1: 138/72 Code : 8480-6 BMI: 41.2 Code : 15804-9 Heart Rate 1 : 96 bpm Height: 5'7" SpO2: 97% Weight: 263 lbs 02/02/2017 Blood Pressure 1: 140/90 Code : 8480-6 BMI: 41.2 Code : 85711-9 Heart Rate 1 : 103 bpm Height: 5'7" SpO2: 94% Weight: 263 lbs 11/26/2016 Blood Pressure 1: 152/88 Code : 8480-6 BMI: 41.0 Code : 11743-9 Heart Rate 1 : 71 bpm Height: 5'7" SpO2: 94% Temperature: 37.7 (C) / 99.8 (F) Weight: 262 lbs 10/07/2016 Blood Pressure 1: 148/82 Code : 8480-6 BMI: 41.7 Code : 24888-7 Heart Rate 1 : 58 bpm Height: 5'7" SpO2: 96% Weight: 266 lbs 09/16/2016 Blood Pressure 1: 122/70 Code : 8480-6 BMI: 42.0 Code : 87162-3 Heart Rate 1 : 65 bpm Height: 5'7" SpO2: 96% Weight: 268 lbs 09/07/2016 Blood Pressure 1: 154/60 Code : 8480-6 BMI: 42.3 Code : 11516-9 Heart Rate 1 : 101 bpm Height: 5'7" SpO2: 97% Weight: 270 lbs 04/08/2016 Blood Pressure 1: 128/70 Code : 8480-6 BMI: 41.4 Code : 91381-3 Heart Rate 1 : 62 bpm Height: 5'7" SpO2: 95% Weight: 264 lbs 8 oz 03/05/2016 Blood Pressure 1: 144/78 Code : 8480-6 Blood Pressure 1: 139/72 Code: 8480-6 BMI: 41.9 Code: 54979-9 Heart Rate 1: 71 bpm Height: 5'7" SpO2: 93% Weight: 267 lbs 8 oz 12/04/2015 Blood Pressure 1: 132/70 Code : 8480-6 BMI: 41.3 Code : 97259-6 Heart Rate 1 : 56 bpm Height: 5'7" SpO2: 96% Weight: 264 lbs 11/18/2015 Blood Pressure 1: 138/72 Code : 8480-6 BMI: 41.0 Code : 05100-8 Heart Rate 1 : 85 bpm Height: 5'7" SpO2: 93% Weight: 262 lbs 09/30/2015 Blood Pressure 1: 128/76 Code : 8480-6 BMI: 41.2 Code : 36286-5 Heart Rate 1 : 70 bpm Height: 5'7" SpO2: 93% Weight: 263 lbs 09/09/2015 Blood Pressure 1: 138/80 Code : 8480-6 BMI: 40.3 Code : 73178-4 Heart Rate 1 : 84 bpm Height: 5'7" SpO2: 95% Weight: 257 lbs 08/28/2015 Blood Pressure 1: 122/72 Code : 8480-6 BMI: 39.6 Code : 33464-9 Heart Rate 1 : 75 bpm Height: 5'7" SpO2: 96% Weight: 253 lbs 07/09/2015 Blood Pressure 1: 135/78 Code : 8480-6 Blood Pressure 1: 140/78 Code: 8480-6 BMI: 39.5 Code: 66661-9 Heart Rate 1: 62 bpm Height: 5'7" SpO2: 95% Weight: 252 lbs 03/06/2015 Blood Pressure 1: 142/88 Code : 8480-6 BMI: 39.3 Code : 48038-4 Heart Rate 1 : 65 bpm Height: 5'7" SpO2: 95% Weight: 251 lbs Functional Status No Functional Status data History of Present Illness Symptom Name Status Result Effective Date Notes Quality chronic 08/15 None Onset and Resolution [...] data Encounters Encounter Performer Location Codes Date ([id number]) [id number] EST. PATIENT, LEVEL III Diagnosis: Essential (primary) hypertension[ICD10: I10] Diagnosis: Low back pain[ICD10: M54.5] Alis Spring MD, [facility] CPT-4: 17198 08/15/2018 ([id number]) [id number] EST. PATIENT, LEVEL III Diagnosis: Essential (primary) hypertension[ICD10: I10] Diagnosis: Cough[ICD10: R05] Diagnosis: Low back pain[ICD10: M54.5] Alis Spring MD, [facility] CPT-4: 11345 08/01/2018 ([id number]) [id number] EST. PATIENT, LEVEL IV Diagnosis: Encounter for immunization[ICD10: Z23] Diagnosis: Essential (primary) hypertension[ICD10: I10] Diagnosis: Chronic atrial fibrillation[ICD10: I48.2] Diagnosis: Major depressive disorder, recurrent, mild[ICD10: F33.0] Scarlett Spring MD [facility] CPT-4: 36046 04/20/2018 ([id number]) [id number] EST. PATIENT, LEVEL IV Diagnosis: Essential (primary) hypertension[ICD10: I10] Diagnosis: Obstructive sleep apnea (adult) (pediatric)[ICD10: G47.33] Diagnosis: Chronic atrial fibrillation[ICD10: I48.2] Scarlett Spring MD [facility] CPT-4: 77181 12/16/2017 ([id number]) [id number] EST. PATIENT, LEVEL IV Diagnosis: Essential (primary) hypertension[ICD10: I10] Diagnosis: Chronic atrial fibrillation[ICD10: I48.2] Scarlett Spring MD [facility] [facility] CPT-4: 90093 08/23/2017 ([id number]) 01659 EST. PATIENT, LEVEL IV Diagnosis: Paroxysmal atrial fibrillation[ICD10: I48.0] Diagnosis: Essential (primary) hypertension[ICD10: I10] Scarlett Spring MD, [facility] CPT-4: 83812 02/02/2017 67950 EST. PATIENT, LEVEL III Diagnosis: Acute laryngopharyngitis[ICD10: J06.0] Diagnosis: Cough[ICD10: R05] Diagnosis: Pleurodynia[ICD10: R07.81] Diagnosis: Other dorsalgia[ICD10: M54.89] Kassandra Spring MD, [facility] CPT-4 : 86022 11/26/2016 ([id number]) 85732 EST. PATIENT, LEVEL IV Diagnosis: Essential (primary) hypertension[ICD10: I10] Diagnosis: Pain in left knee[ICD10: M25.562] Diagnosis: Low back pain[ICD10: M54.5] Diagnosis: Major depressive disorder, recurrent, moderate[ICD10: F33.1] Scarlett Spring MD [facility] CPT-4: 95500 10/07/2016 ([id number]) 87572 EST. PATIENT, LEVEL IV Diagnosis: Essential (primary) hypertension[ICD10: I10] Diagnosis: Rash and other nonspecific skin eruption[ICD10: R21] Diagnosis: Major depressive disorder, recurrent, mild[ICD10: F33.0] Scarlett Spring MD, [facility] CPT-4: 45080 09/16/2016 18470 EST. PATIENT, LEVEL IV Diagnosis: Pain in left lower leg[ICD10: M79.662] Diagnosis: Pain in left knee[ICD10: M25.562] Kassandra Spring MD, [facility] CPT -4: 89210 09/07/2016 ([id number]) 16121 EST. PATIENT, LEVEL IV Diagnosis: Encounter for immunization[ICD10: Z23] Diagnosis: Essential (primary) hypertension[ICD10: I10] Diagnosis: Mixed hyperlipidemia[ICD10: E78.2] Scarlett Spring MD, [facility] CPT-4: 52392 04/08/2016 ([id number]) 34854 EST. PATIENT, LEVEL III Diagnosis: Essential (primary) hypertension[ICD10: I10] Diagnosis: Shortness of breath[ICD10: R06.02] Scarlett Spring MD, [facility] CPT-4: 09532 03/05/2016 ([id number]) 84610 EST. PATIENT, LEVEL III Diagnosis: Chronic obstructive pulmonary disease, unspecified[ICD10: J44.9] Scarlett Spring MD, [facility] CPT-4: 00892 12/04/2015 ([id number]) 81507 EST. PATIENT, LEVEL IV Diagnosis: Essential (primary) hypertension[ICD10: I10] Diagnosis: Allergic rhinitis due to pollen[ICD10: J30.1] Scarlett Spring MD, [facility] CPT-4: 58874 11/18/2015 ([id number]) 72909 EST. PATIENT, LEVEL IV Diagnosis: Localized edema[ICD10: R60.0] Diagnosis: Dysuria[ICD10: R30.0] Diagnosis: Essential (primary) hypertension[ICD10: I10] Diagnosis: Nausea[ICD10: R11.0] Alis Spring MD, [facility] CPT-4: 85649 09/30/2015 ([id number]) 88164 EST. PATIENT, LEVEL II Diagnosis: Methicillin susceptible Staphylococcus aureus infection as the cause of diseases classified elsewhere[ICD10: B95.61] Diagnosis: Methicillin susceptible Staphylococcus aureus infection, unspecified site[ICD10: A49.01] Alis Spring MD, [facility] CPT-4: 49122 09/09/2015 ([id number]) 70289 EST. PATIENT, LEVEL III Diagnosis: Dermatophytosis, unspecified[ICD10: B35.9] Diagnosis: Rash and other nonspecific skin eruption[ICD10: R21] Scarlett Spring MD, [facility] CPT-4: 20268 08/28/2015 [id number]) 06290 EST. PATIENT, LEVEL IV Diagnosis: Essential (primary) hypertension[ICD10: I10] Diagnosis: Gastro-esophageal reflux disease without esophagitis[ICD10: K21.9] Diagnosis: Other dorsalgia[ICD10: M54.89] Scarlett Spring MD, [facility] CPT- 4: 63553 07/09/2015 ([id number]) OFFICE VISIT, NEW - LEVEL 4 Diagnosis: ESSENTIAL HYPERTENSION[ICD9: 401.9] Diagnosis: Osteoporosis[ICD9: 733.00] Diagnosis: Back pain[ICD9: 724.5] Diagnosis: Insomnia[ICD9: 780.52] Diagnosis: ESOPHAGEAL REFLUX[ICD9: 530.81] Scarlett Spring MD, [facility] CPT- 4: 53420 03/06/2015 Plan of Care Planned Activity Notes Codes Status Date Appointment: Lab Draw 08/18/2018 Patient Education: Patient [...] not improve 08/15/2018 Appointment: Alis Muhammad WPtel: [address] [place], [place] [phone] (30 min) Complex 08/15/2018 Patient Education: Patient Medication Summary Completed 08/15/2018 Patient Education: Back Pain Completed 08/15/2018 Visit Plan: HTN-onofre induced cough-stop lisinopril -start losartan -monitor blood pressure and follow up in 2 weeks Low back pain-xray lumbar spine and refer for PT 08/01/2018 Appointment: Alis Muhammad WPtel: [address] [place], [place] [phone] [place] (15 min) Moderate 08/01/2018 Patient Education: Patient Medication Summary Completed 08/01/2018 Patient Education: Back Pain Completed 08/01/2018 Care Plan: X-RAY EXAM L-S SPINE 2/3 VWS LOINC : 72013-3 Pending 08/01/2018 Visit Plan: Hypertension - well [...] today. 04/20/2018 [facility]ment[phone] [facility] [place] (15 min) Moderate 04/20/2018 Patient Education: Patient [...] 02/09/2018 Appointment: Kassandra Argueta WPtel: [phone] [facility] [place] [address] - Annual Wellness Visit 02/09/2018 Patient Education: [...] management - cpap every night. 12/16/2017 Appointment: Scralett Spring WPtel: [facility] (15 min) Moderate 12/16/2017 Patient Education: Patient [...] uncontrolled. 08/23/2017 Appointment: Scarlett Spring WPtel: [phone] [facility] (15 min) Moderate 08/23/2017 Patient Education: Patient [...] her DOPA paperwork for health care surrogate. Manish Yeh yesterday - Defer to cardiology 02/03/2017 Appointment: [facility] Argeuta [facility] [phone] [facility] [facility] - Annual Wellness Visit 02/03/2017 [...] home. 02/02/2017 Appointment: Scarlett Spring [facility] [phone] [facility] (15 min) Moderate 02/02/2017 Patient Education: [...] not improve. 11/26/2016 Appointment: Kassandra Argueta WPtel: [facility] (30 min) Complex 11/26/2016 Patient Education: [...] pain symptoms. 10/07/2016 Appointment: Scarlett Spring WPtel: [facility] (15 min) Moderate 10/07/2016 Patient Education: Patient Medication Summary Completed 10/07/2016 Patient Education: Obesity Completed 10/07/2016 Patient Education: Hypertension Completed 10/07/2016 Care Plan: VASCULAR STUDY Pending 10/04/2016 Care Plan: X-RAY EXAM OF KNEE [facility] : 91646-9 Pending 10/04/2016 Visit Plan: Hypertension - well [...] paroxetine 09/16/2016 Appointment: Scarlett Spring WPtel: [phone] [facility] [place] (15 min) Moderate 09/16/2016 Patient Education: [...] not improve. 09/07/2016 Appointment: Kass[facility] Argueta [facility]Ptel[facility] [phone] [facility] [place] (10 min) Simple 09/07/2016 Patient Education: [...] order 04/08/2016 Appointment: Scarlett Spring [facility] [phone] [facility] [place] (15 min) Moderate 04/08/2016 Patient [...] 10 days. 03/05/2016 Appointment: Scarlett Spring WPtel: [facility] (15 min) Moderate 03/05/2016 Patient Education: Patient Medication Summary Completed 03/05/2016 Visit Plan: COPD - chronic problem for this patient. We have reviewed chronic treatment strategy, symptom control, and plans for acute exacerbations. No changes today to the current treatment plan as the patient is stable, monitor for acute changes. anoro samples given to the patient 12/04/2015 Appointment: Scarlett Spring WPtel: [facility] (15 min) Moderate 12/04/2015 Patient Education: [...] allergy spray. 11/18/2015 Appointment: Scarlett Spring WPtel: [facility] (15 min) Moderate 11/18/2015 Patient Education: Patient Medication Summary Completed 11/18/2015 Patient Education: Obesity Completed 11/18/2015 Patient Education: Hypertension Completed 11/18/2015 Appointment: Scarlett Spring WPtel[facility] [phone] [facility] (15 min) Moderate 11/07/2015 Visit Plan: [...] report. 08/28/2015 Appointment: Scarlett Spring [facility]Ptel[facility] [phone] [facility] (15 min) Moderate 08/28/2015 Patient Education: [...] improving. 07/09/2015 Appointment: Scarlett Spring WPtel: [phone] [facility] (15 min) Moderate 07/09/2015 Patient Education: Patient [...] improving. 03/06/2015 Appointment: Scarlett Spring [facility]Ptel[facility] [phone] [facility] [place] (S) New Patient 03/06/2015 Patient [...] pain is worsening or does not improve. CALL WEDNESDAY IF RASH NOT COMPLETELY RESOLVED . MSSA of groin and under tljvfge-xbiukgvho-golxov bactrim and call if rash does not completely resolve . Hypertension - well controlled - continue [...] office if the symptoms are not improving. Declined Procedure: (G0202) SCREENINGMAMMOGRAPHYDIGITAL; Declined Reason: Patient [...] their heart rate is becoming uncontrolled. . COPD - chronic problem for this [...]
--- OUTSIDE RECORDS SUMMARY | 2018-10-11 10:00 | XMS REPORT | CCD ---
Author Author [facility] Organization [facility] Address [address] [place] [address] Phone Care Team Providers Care Linker Up Name Role Phone PP Unavailable CCM Unavailable Summary Purpose Interface Exchange Insurance Providers Payer name Policy type / Coverage type Covered green party ID Effective Begin Date Effective End Date WPS Medicare Part B Medicare Part B [id number] Unknown [email or web address] Medicare Part B [id number] Unknown Family history Mother Diagnosis Age At Onset Hypertension Unknown Heart Attack Unknown Brother Diagnosis Age At Onset Heart disease Unknown Runs in the family Diagnosis Age At Onset Heart disease Unknown Daughter Diagnosis Age At Onset Heart Attack Unknown Hyperlipidemia Unknown Hypertension Unknown Social History Social History Element Codes Description Effective Dates Number of children Unknown 2 daughter lives in [place], son - does not have contact [address]: 5948744 Quit over 10 years ago 1990 - previously smoked 2ppd x 25 years. 11/18/2015 Marital status Unknown in 201003/06/2015 Employment Unknown Retired was a [employer] A[employer]ST 03/06/2015 Allergies, Adverse Reactions, Alerts Substance Reaction [...] Start Date Stop Date Status Fill Instructions Keflex 500 mg capsule RxNorm: 299663 1 Capsule(s) PO TID 201808/24/2018 Active take probiotic while on abx Keflex 500 mg capsule RxNorm: 866871 1 Capsule(s) PO TID 201808/17/2018 Inactive paroxetine 20 mg tablet RxNorm: 4101285 TAKE ONE TABLET BY MOUTH DAILY 08/12/2018 08/06/2019 Active losartan 25 mg tablet RxNorm: 823596 1 Tablet(s) PO daily 201809/29/2018 Active losartan 25 mg tablet RxNorm: 523834 1 Tablet(s) PO daily 201809/29/2018 Active trazodone 50 mg tablet RxNorm: 279555 TAKE ONE TABLET BY MOUTH DAILY 07/25/2018 09/22/2018 Active Ambien 10 mg tablet RxNorm: 139784 Tablet(s) TAKE ONE TABLET BY MOUTH AT BEDTIME 06/24/2018 09/21/2018 Active trazodone 50 mg tablet RxNorm: 029765 TAKE ONE TABLET BY MOUTH DAILY 04/25/2018 07/23/2018 Inactive Ambien 10 mg tablet RxNorm: 545728 Tablet(s) TAKE ONE TABLET BY MOUTH AT BEDTIME 03/23/2018 06/19/2018 Inactive terazosin 5 mg capsule RxNorm: 478110 TAKE ONE CAPSULE BY MOUTH DAILY 03/14/2018 09/09/2018 Active Ambien 10 mg tablet RxNorm: 460686 Tablet(s) TAKE ONE TABLET BY MOUTH AT BEDTIME 01/18/2018 03/17/2018 Inactive trazodone 50 mg tablet RxNorm: 802424 TAKE ONE TABLET BY MOUTH ONCE DAILY 01/10/2018 03/22/2018 Inactive trazodone 50 mg tablet RxNorm: 072487 Tablet(s) TAKE ONE TABLET BY MOUTH ONCE DAILY 01/10/2018 04/24/2018 Inactive Ambien 10 mg tablet RxNorm: 689547 Tablet(s) TAKE ONE TABLET BY MOUTH AT BEDTIME 10/22/2017 01/17/2018 Inactive trazodone 50 mg tablet RxNorm: 293976 TAKE ONE TABLET BY MOUTH ONCE DAILY 10/18/2017 01/09/2018 Inactive omeprazole 20 mg capsule,delayed release RxNorm: 278978 TAKE ONE CAPSULE BY MOUTH ONCE DAILY AT BEDTIME 08/27/2017 No Stop Date Active trazodone 50 mg tablet RxNorm: 130941 TAKE ONE TABLET BY MOUTH ONCE DAILY 08/18/2017 10/17/2017 Inactive Ambien 10 mg tablet RxNorm: 973456 Tablet(s) TAKE ONE TABLET BY MOUTH AT BEDTIME 08/18/2017 03/22/2018 Inactive paroxetine 20 mg tablet RxNorm: 9218888 TAKE ONE TABLET BY MOUTH ONCE DAILY 07/27/2017 08/11/2018 Inactive Ambien 10 mg tablet RxNorm: 632425 Tablet(s) TAKE ONE TABLET BY MOUTH AT BEDTIME 06/23/2017 03/22/2018 Inactive omeprazole 20 mg capsule,delayed release RxNorm: 697187 TAKE ONE CAPSULE BY MOUTH ONCE DAILY AT BEDTIME 04/23/20172017 Inactive trazodone 50 mg tablet RxNorm: 497412 TAKE ONE TABLET BY MOUTH ONCE DAILY 04/13/2017 08/10/2017 Inactive terazosin 5 mg capsule RxNorm: 802702 Capsule(s) TAKE ONE CAPSULE BY MOUTH DAILY 04/08/2017 03/03/2018 Inactive Ambien 10 mg tablet RxNorm: 888666 Tablet(s) TAKE ONE TABLET BY MOUTH AT BEDTIME 02/17/2017 03/22/2018 Inactive Tylenol-Codeine #3 300 mg-30 mg tablet RxNorm: 498245 1 Tablet(s) PO QID as needed 02/02/2017 03/03/2017 Inactive metoprolol succinate ER 50 mg tablet,extended release 24 hr RxNorm: 487626 TAKE ONE TABLET BY MOUTH ONCE DAILY 12/23/2016 02/02/2017 Inactive Zithromax Z-Ted 250 mg tablet RxNorm: 386441 1 Tablet(s) PO UD 11/26/2016 02/16/2017 Inactive trazodone 50 mg tablet RxNorm: 982106 TAKE ONE TABLET BY MOUTH ONCE DAILY 11/12/2016 03/11/2017 Inactive Ambien 10 mg tablet RxNorm: 837370 Tablet(s) TAKE ONE TABLET BY MOUTH AT BEDTIME 10/22/2016 02/15/2017 Inactive paroxetine 20 mg tablet RxNorm: 4695506 1 Tablet(s) PO daily TAKE ONE TABLET BY MOUTH DAILY 09/16/2016 06/12/2017 Inactive meloxicam 7.5 mg tablet RxNorm: 663978 1 Tablet(s) PO daily 11/14/2016 Inactive Protonix 40 mg tablet,delayed release RxNorm: 090732 1 Tablet(s) PO daily 09/16/2016 08/22/2017 Inactive sucralfate 1 gram tablet RxNorm: 591514 1 Tablet(s) PO TID 08/22/2017 Inactive Ambien 10 mg tablet RxNorm: 431617 Tablet(s) TAKE ONE TABLET BY MOUTH AT BEDTIME 08/24/2016 03/22/2018 Inactive trazodone 50 mg tablet RxNorm: 783972 Tablet(s) TAKE ONE TABLET BY MOUTH DAILY 07/29/2016 11/11/2016 Inactive Ambien 10 mg tablet RxNorm: 687014 TAKE ONE TABLET BY MOUTH AT BEDTIME 06/23/2016 03/22/2018 Inactive Ambien 10 mg tablet RxNorm: 117706 Tablet(s) TAKE ONE TABLET BY MOUTH EVERY NIGHT AT BEDTIME 06/22/2016 06/23/2016 Inactive Lasix 40 mg tablet RxNorm: 986461 1 Tablet(s) PO daily as needed for swelling 04/03/2016 09/15/2016 Inactive potassium chloride ER 20 mEq tablet,extended release RxNorm: 576816 1 Tablet(s) PO daily for swelling take with lasix as needed 04/03/2016 09/15/2016 Inactive Ambien 10 mg tablet RxNorm: 851581 Tablet(s) TAKE ONE TABLET BY MOUTH EVERY NIGHT AT BEDTIME 04/03/2016 03/22/2018 Inactive omeprazole 20 mg capsule,delayed release RxNorm: 236168 TAKE ONE CAPSULE BY MOUTH EVERY NIGHT AT BEDTIME 03/31/20162016 Inactive paroxetine 20 mg tablet RxNorm: 2158550 TAKE ONE TABLET BY MOUTH DAILY 03/31/2016 09/15/2016 Inactive trazodone 50 mg tablet RxNorm: 011166 TAKE ONE TABLET BY MOUTH DAILY 03/20/2016 07/28/2016 Inactive terazosin 5 mg capsule RxNorm: 037856 TAKE ONE CAPSULE BY MOUTH DAILY 03/06/2016 10/06/2016 Inactive Ambien 10 mg tablet RxNorm: 458816 Tablet(s) TAKE ONE TABLET BY MOUTH EVERY NIGHT AT BEDTIME 01/17/2016 04/02/2016 Inactive loratadine 10 mg tablet RxNorm: 763506 1 Tablet(s) PO daily 09/15/2016 Inactive mupirocin 2 % topical ointment RxNorm: 815005 1 Application TOP TID 11/18/2015 12/01/2015 Inactive metoprolol succinate ER 50 mg tablet,extended release 24 hr RxNorm: 956972 1 Tablet(s) PO daily 11/18/2015 11/11/2016 Inactive loratadine 10 mg tablet RxNorm: 247317 1 Tablet(s) PO daily 01/14/2016 Inactive Lasix 40 mg tablet RxNorm: 986182 1 Tablet(s) PO daily as needed for swelling 10/30/2015 11/28/2015 Inactive potassium chloride ER 20 mEq tablet,extended release RxNorm: 632268 1 Tablet(s) PO daily for swelling take with lasix as needed 10/30/2015 11/28/2015 Inactive Tylenol-Codeine #3 300 mg-30 mg tablet RxNorm: 253923 1 Tablet(s) PO QID as needed 10/25/2015 02/01/2017 Inactive Ambien 10 mg tablet RxNorm: 186365 Tablet(s) TAKE ONE TABLET BY MOUTH EVERY NIGHT AT BEDTIME 10/18/2015 03/22/2018 Inactive Diflucan 150 mg tablet RxNorm: 648535 1 Tablet(s) PO daily 02/201612/03/2015 Inactive Lasix 20 mg tablet RxNorm: 641104 1 Tablet(s) PO PRN fror swelling 09/27/2015 10/29/2015 Inactive potassium chloride ER 10 mEq capsule,extended release RxNorm: 359628 1 Capsule(s) PO PRN for swelling take with lasix 09/27/2015 10/29/2015 Inactive Bactrim DS 800 mg-160 mg tablet RxNorm: 326045 1 Tablet(s) PO BID 09/02/2015 09/11/2015 Inactive Bactrim DS 800 mg-160 mg tablet RxNorm: 417338 1 Tablet(s) PO BID 09/02/2015 09/01/2015 Inactive nystatin 100,000 unit/gram topical cream RxNorm: 759269 1 Gram(s) TOP TID 08/28/2015 09/26/2015 Inactive Diflucan 150 mg tablet RxNorm: 255375 1 Tablet(s) PO daily 09/201509/06/2015 Inactive betamethasone dipropionate 0.05 % topical ointment RxNorm: 301928 1 Application TOP TID to affected area 08/02/20152016 Inactive nystatin 100,000 unit/gram topical powder RxNorm: 962184 1 Gram(s) TOP QID 07/09/2015 08/01/2015 Inactive Ambien 10 mg tablet RxNorm: 657610 1 Tablet(s) PO QHS 201406/18/2015 Inactive Ambien 10 mg tablet RxNorm: 815851 TAKE ONE TABLET BY MOUTH EVERY NIGHT AT BEDTIME 06/19/2015 09/16/2015 Inactive Vitamin D2 50,000 unit capsule RxNorm: 873671 1 Capsule(s) PO QW 03/07/2015 03/06/2015 Inactive Vitamin D2 50,000 unit capsule RxNorm: 118533 1 Capsule(s) PO QW 03/07/2015 05/05/2015 Inactive terazosin 5 mg capsule RxNorm: 214004 1 Capsule(s) PO daily 06/201502/28/2016 Inactive [SAVINGS FOR NON-COVERED DRUGS -- BIN:[id number], PCN: [id number], Group: XXXXX, ID# [id number], Questions: . THIS IS NOT INSURANCE.] trazodone 50 mg tablet RxNorm: 666807 1 Tablet(s) PO daily 06/201502/28/2016 Inactive paroxetine 20 mg tablet RxNorm: 8752450 1 Tablet(s) PO daily 02/28/2016 Inactive Tylenol-Codeine #3 300 mg-30 mg tablet RxNorm: 870403 1 Tablet(s) PO QID as needed 03/06/2015 07/02/2015 Inactive amlodipine 10 mg tablet RxNorm: 343663 1 Tablet(s) PO daily 06/201511/17/2015 Inactive metoprolol succinate ER 25 mg tablet,extended release 24 hr RxNorm: 778573 1 Tablet(s) PO daily 03/06/2015 11/17/2015 Inactive omeprazole 20 mg capsule,delayed release RxNorm: 777051 1 Capsule(s) PO QHS 03/06/2015 02/28/2016 Inactive omeprazole 20 mg capsule,delayed release RxNorm: 919582 1 Capsule(s) PO QHS 01/31/2015 01/30/2015 Inactive omeprazole 20 mg capsule,delayed release RxNorm: 175791 1 Capsule(s) PO QHS 01/31/2015 01/30/2015 Inactive omeprazole 20 mg capsule,delayed release RxNorm: 177412 1 Capsule(s) PO QHS 01/31/2015 03/05/2015 Inactive Ambien 10 mg tablet RxNorm: 407826 1 Tablet(s) PO QHS 201404/21/2015 Inactive paroxetine 20 mg tablet RxNorm: 512216 1 Tablet(s) PO daily 08/201412/24/2014 Inactive Ambien 10 mg tablet RxNorm: 029393 1 Tablet(s) PO QHS 201412/24/2014 Inactive paroxetine 20 mg tablet RxNorm: 563760 1 Tablet(s) PO daily 08/201403/05/2015 Inactive terazosin 5 mg capsule RxNorm: 626581 1 Capsule(s) PO daily 07/201403/05/2015 Inactive [SAVINGS FOR NON-COVERED DRUGS -- BIN:[id number], PCN: ASPROD1, Group: XXXXX, ID# [id number], Questions: . THIS IS NOT INSURANCE.] terazosin 5 mg capsule RxNorm: 735352 1 Capsule(s) PO daily 07/201411/22/2014 Inactive Lasix 20 mg tablet RxNorm: 415230 1 Tablet(s) PO daily No Start Date Active K-Dur 10 mEq tablet,extended release RxNorm: 511337 1 Tablet(s) PO daily No Start Date Active hydrochlorothiazide 25 mg tablet RxNorm: 649991 1 Tablet(s) PO daily No Start Date Active Eliquis 5 mg tablet RxNorm: 7499942 1 Tablet(s) PO BID No Start Date Active Vitamin D3 2,000 unit tablet RxNorm: 916357 1 Tablet(s) PO daily No Start Date Active amiodarone 200 mg tablet RxNorm: 524921 1 Tablet(s) PO BID No Start Date Active Zetia 10 mg tablet RxNorm: 373865 1 Tablet(s) PO daily No Start Date Active Lipitor 80 mg tablet RxNorm: 278911 1/2 Tablet(s) PO daily No Start Date Active metoprolol succinate ER 25 mg tablet,extended release 24 hr RxNorm: 436079 1 Tablet(s) PO daily No Start Date 2014 Inactive Entresto 49 mg-51 mg tablet RxNorm: 0261126 1 Tablet(s) PO BID No Start Date 04/19/2018 Inactive sotalol 80 mg tablet RxNorm: 3454467 1 Tablet(s) PO BID No Start Date 04/19/2018 Inactive betamethasone dipropionate 0.05 % topical ointment RxNorm: 616826 1 Application TOP TID to affected area No Start Date 01/2016 Inactive trazodone 50 mg tablet RxNorm: 366550 1 Tablet(s) PO daily No Start Date 03/05/2015 Inactive potassium chloride ER 10 mEq capsule,extended release RxNorm: 967356 1 Capsule(s) PO PRN for swelling take with lasix No Start Date 09/26/2015 Inactive amlodipine 10 mg tablet RxNorm: 675628 1 Tablet(s) PO daily No Start Date 03/05/2015 Inactive isosorbide mononitrate ER 30 mg tablet,extended release 24 hr RxNorm: 935849 1 Tablet(s) PO daily No Start Date 2017 Inactive aspirin 81 mg tablet,delayed release RxNorm: 390939 1 Tablet(s) PO daily No Start Date 02/02/2017 Inactive Lasix 20 mg tablet RxNorm: 857136 1 Tablet(s) PO PRN fror swelling No Start Date 09/26/2015 Inactive lisinopril 5 mg tablet RxNorm: 790363 1 Tablet(s) PO daily No Start Date 07/31/2018 Inactive Crestor 40 mg tablet RxNorm: 868834 1 Tablet(s) PO daily No Start Date 09/15/2016 Inactive metoprolol succinate ER 100 mg tablet,extended release 24 hr RxNorm: 452917 1 Tablet(s) PO daily No Start Date [...] Item Item Code Result Date Culture Urine [id number] URINE CULTURE SEE NOTES 08/22/2018 Culture Urine [id number] Continued Results 08/22/2018 Urine Culture Ucult Complete >100,000 col/ml aerobic growth sent to ref lab 08/19/2018 Comp Metabolic Kgz666 NA 140 mEq/L 08/01/2018 Comp Metabolic Wuc242 K 4.2 mEq/L 08/01/2018 Comp Metabolic Ghh821 CL 102 mEq/L 08/01/2018 Comp Metabolic Pae212 CO2 27.0 mEq/L 08/01/2018 Comp Metabolic Ynr109 ANION GAP 15 08/01/2018 Comp Metabolic Brc818 GLUCOSE 107 mg/dL 08/01/2018 Comp Metabolic Ehj139 Creat 1.0 mg/dL 08/01/2018 Comp Metabolic Ral459 eGFR 58 ml/min/1.73m2 08/01/2018 Comp Metabolic Uby596 BUN 10 mg/dL 08/01/2018 Comp Metabolic Fgx217 B/C Ratio 10.0 Ratio 08/01/2018 Comp Metabolic Qxj184 CALCIUM 8.9 mg/dL 08/01/2018 Comp Metabolic Pyd000 ALK PHOS 68 U/L 08/01/2018 Comp Metabolic Gpq288 AST(SGOT) 18 U/L 08/01/2018 Comp Metabolic Zbc853 ALT(SGPT) 14 U/L 08/01/2018 Comp Metabolic Pso810 BILI T 0.5 mg/dL 08/01/2018 Comp Metabolic Ikb892 ALBUMIN 4.0 g/dL 08/01/2018 Comp Metabolic Ytt295 TPRO 6.3 g/dL 08/01/2018 Comp Metabolic Eet820 GLOB 2.3 g/dL 08/01/2018 Comp Metabolic Jdd405 A/G Ratio 1.7 Ratio 08/01/2018 Comp Metabolic Onb875 Osmo 279 mOsmo 08/01/2018 Tsh Ord6 TSH [...] 19.8 % 08/01/2018 Cbc With Differential Ord2 [place]% 9.8 % 08/01/2018 Cbc With Differential Ord2 [...] 0.79 K/ul 08/01/2018 Cbc With Differential Ord2 [place] ABS# 0.4 K/ul 08/01/2018 Cbc With Differential Ord2 Eos ABS# 0.1 K/ul 08/01/2018 Cbc With Differential Ord2 Baso ABS# 0.0 K/ul 08/01/2018 Lipid Ord30 CHOL 234 mg/dL 08/01/2018 Lipid Ord30 HDL 69.0 mg/dl 08/01/2018 Lipid Ord30 TRIG 57 mg/dL 08/01/2018 Lipid Ord30 LDL 154 mg/dL 08/01/2018 Lipid Ord30 C/HDL 3.4 Ratio 08/01/2018 Comp Metabolic Pkn695 NA 137 mEq/L 09/30/2015 Comp Metabolic Uqq622 K 4.5 mEq/L 09/30/2015 Comp Metabolic Haq364 CL 102 mEq/L 09/30/2015 Comp Metabolic Fft433 CO2 26.0 mEq/L 09/30/2015 Comp Metabolic Vhm249 ANION GAP 14 09/30/2015 Comp Metabolic Mxw819 GLUCOSE 89 mg/dL 09/30/2015 Comp Metabolic Dnd496 Creat 0.8 mg/dL 09/30/2015 Comp Metabolic Mqr250 eGFR 79 ml/min/1.73m2 09/30/2015 Comp Metabolic Nrb066 BUN 14 mg/dL 09/30/2015 Comp Metabolic Prj857 B/C Ratio 18.2 Ratio 09/30/2015 Comp Metabolic Nsk857 CALCIUM 8.9 mg/dL 09/30/2015 Comp Metabolic Wlk479 ALK PHOS 65 U/L 09/30/2015 Comp Metabolic Fld682 AST(SGOT) 26 U/L 09/30/2015 Comp Metabolic Pvf123 ALT(SGPT) 18 U/L 09/30/2015 Comp Metabolic Olp220 BILI T 0.6 mg/dL 09/30/2015 Comp Metabolic Yob513 ALBUMIN 3.8 g/dL 09/30/2015 Comp Metabolic Czd678 TPRO 6.6 g/dL 09/30/2015 Comp Metabolic Mpe219 GLOB 2.8 g/dL 09/30/2015 Comp Metabolic Wbt261 A/G Ratio 1.4 Ratio 09/30/2015 Comp Metabolic Snz803 Osmo 274 mOsmo 09/30/2015 Cbc With Differential [...] 27.7 pg 09/30/2015 Cbc With Differential Ord2 [place]% 10.7 % 09/30/2015 Cbc With Differential Ord2 [...] 1.10 K/ul 09/30/2015 Cbc With Differential Ord2 [place] ABS# 0.6 K/ul 09/30/2015 Cbc With Differential Ord2 Eos ABS# 0.2 K/ul 09/30/2015 Cbc With Differential Ord2 Baso ABS# 0.0 K/ul 09/30/2015 Cbc With Differential Ord2 New Analyzer Notice Please note new ref ranges starting 08-07-2015 due to implemntation of new five part differential hematolgy analyzer. 09/30/2015 Tsh Ord6 hTSH II 1.05 uIU/mL 03/06/2015 Comp Metabolic Oly144 NA 137 mEq/L 03/06/2015 Comp Metabolic Vuq593 K 4.3 mEq/L 03/06/2015 Comp Metabolic Akp371 CL 104 mEq/L 03/06/2015 Comp Metabolic Hty793 CO2 28.0 mEq/L 03/06/2015 Comp Metabolic Ffg749 ANION GAP 9 03/06/2015 Comp Metabolic Bni490 GLUCOSE 93 mg/dL 03/06/2015 Comp Metabolic Plu326 Creat 0.8 mg/dL 03/06/2015 Comp Metabolic Tqw358 eGFR 81 ml/min/1.73m2 03/06/2015 Comp Metabolic Qoz207 BUN 12 mg/dL 03/06/2015 Comp Metabolic Phm847 B/C Ratio 16.0 Ratio 03/06/2015 Comp Metabolic Xrg100 CALCIUM 8.9 mg/dL 03/06/2015 Comp Metabolic Knr926 ALK PHOS 56 U/L 03/06/2015 Comp Metabolic Wyk349 AST(SGOT) 22 U/L 03/06/2015 Comp Metabolic Nue519 ALT(SGPT) 15 U/L 03/06/2015 Comp Metabolic Oii857 BILI T 0.4 mg/dL 03/06/2015 Comp Metabolic Igx680 ALBUMIN 4.0 g/dL 03/06/2015 Comp Metabolic Pve698 TPRO 6.5 g/dL 03/06/2015 Comp Metabolic Ddx948 GLOB 2.5 g/dL 03/06/2015 Comp Metabolic Qyb729 A/G Ratio 1.6 Ratio 03/06/2015 Comp Metabolic Aik273 Osmo 273 mOsmo 03/06/2015 Vitamin D 25 Oh Glx6033 VITAMIN D, 25 HYDROXY 28.14 ng/mL Cbc [...] 1995 Ears/Nose/Throat oral cavity/pharynx/larynx Overall: hypopharynx benign 08/15/2018 [...] Codes Date URINALYSIS NONAUTO W/O SCOPE CPT-4: 68001 08/18/2018 ADMIN INFLUENZA VIRUS VAC CPT-4: G0008 04/20/2018 FLU VACC PRSV FREE INC ANTIG Formatting Model/CDA Sections, Assigned to/Prasanna Amparo CPT-4: 01193Lrfgcfo 04/20/2018 PPPS, SUBSEQ VISIT CPT -4: G0439 02/09/2018 PPPS, SUBSEQ VISIT CPT -4: G0439 02/03/2017 ADMIN INFLUENZA VIRUS VAC CPT-4: G0008 04/08/2016 ADMIN PNEUMOCOCCAL VACCINE SNOMED CT: 35064961 CPT-4: G0009 04/08/2016 PNEUMOCOCCAL VACC [address]: 79906491 CPT-4: 92819 04/08/2016 FLU VACC PRSV FREE INC ANTIG CPT-4: 54990 04/08/2016 Vital Signs Date Vital 08/15/2018 Blood Pressure 1: 140/90 Code : 8480-6 BMI: 40.7 Code : 37264-4 Heart Rate 1 : 70 bpm Height: 5'7" SpO2: 93% Weight: 260 lbs 08/01/2018 Blood Pressure 1: 130/70 Code : 8480-6 BMI: 40.7 Code : 61874-0 Heart Rate 1 : 80 bpm Height: 5'7" SpO2: 93% Weight: 260 lbs 04/20/2018 Blood Pressure 1: 128/68 Code : 8480-6 BMI: 41.7 Code : 37027-7 Heart Rate 1 : 85 bpm Height: 5'7" SpO2: 94% Weight: 266 lbs 02/09/2018 Blood Pressure 1: 118/70 Code : 8480-6 BMI: 42.1 Code : 94585-2 Heart Rate 1 : 58 bpm Height: 5'7" SpO2: 94% Weight: 269 lbs 12/16/2017 Blood Pressure 1: 132/86 Code : 8480-6 BMI: 42.7 Code : 42829-5 Heart Rate 1 : 63 bpm Height: 5'7" SpO2: 94% Weight: 272 lbs 14 oz 08/23/2017 Blood Pressure 1: 150/82 Code : 8480-6 BMI: 42.0 Code : 91424-0 Heart Rate 1 : 66 bpm Height: 5'7" SpO2: 96% Weight: 268 lbs 02/03/2017 Blood Pressure 1: 138/72 Code : 8480-6 BMI: 41.2 Code : 72611-7 Heart Rate 1 : 96 bpm Height: 5'7" SpO2: 97% Weight: 263 lbs 02/02/2017 Blood Pressure 1: 140/90 Code : 8480-6 BMI: 41.2 Code : 54909-4 Heart Rate 1 : 103 bpm Height: 5'7" SpO2: 94% Weight: 263 lbs 11/26/2016 Blood Pressure 1: 152/88 Code : 8480-6 BMI: 41.0 Code : 26052-5 Heart Rate 1 : 71 bpm Height: 5'7" SpO2: 94% Temperature: 37.7 (C) / 99.8 (F) Weight: 262 lbs 10/07/2016 Blood Pressure 1: 148/82 Code : 8480-6 BMI: 41.7 Code : 27246-7 Heart Rate 1 : 58 bpm Height: 5'7" SpO2: 96% Weight: 266 lbs 09/16/2016 Blood Pressure 1: 122/70 Code : 8480-6 BMI: 42.0 Code : 67947-4 Heart Rate 1 : 65 bpm Height: 5'7" SpO2: 96% Weight: 268 lbs 09/07/2016 Blood Pressure 1: 154/60 Code : 8480-6 BMI: 42.3 Code : 51203-4 Heart Rate 1 : 101 bpm Height: 5'7" SpO2: 97% Weight: 270 lbs 04/08/2016 Blood Pressure 1: 128/70 Code : 8480-6 BMI: 41.4 Code : 48895-1 Heart Rate 1 : 62 bpm Height: 5'7" SpO2: 95% Weight: 264 lbs 8 oz 03/05/2016 Blood Pressure 1: 144/78 Code : 8480-6 Blood Pressure 1: 139/72 Code: 8480-6 BMI: 41.9 Code: 92276-9 Heart Rate 1: 71 bpm Height: 5'7" SpO2: 93% Weight: 267 lbs 8 oz 12/04/2015 Blood Pressure 1: 132/70 Code : 8480-6 BMI: 41.3 Code : 61540-1 Heart Rate 1 : 56 bpm Height: 5'7" SpO2: 96% Weight: 264 lbs 11/18/2015 Blood Pressure 1: 138/72 Code : 8480-6 BMI: 41.0 Code : 31878-7 Heart Rate 1 : 85 bpm Height: 5'7" SpO2: 93% Weight: 262 lbs 09/30/2015 Blood Pressure 1: 128/76 Code : 8480-6 BMI: 41.2 Code : 53449-2 Heart Rate 1 : 70 bpm Height: 5'7" SpO2: 93% Weight: 263 lbs 09/09/2015 Blood Pressure 1: 138/80 Code : 8480-6 BMI: 40.3 Code : 93483-6 Heart Rate 1 : 84 bpm Height: 5'7" SpO2: 95% Weight: 257 lbs 08/28/2015 Blood Pressure 1: 122/72 Code : 8480-6 BMI: 39.6 Code : 59951-8 Heart Rate 1 : 75 bpm Height: 5'7" SpO2: 96% Weight: 253 lbs 07/09/2015 Blood Pressure 1: 135/78 Code : 8480-6 Blood Pressure 1: 140/78 Code: 8480-6 BMI: 39.5 Code: 75901-7 Heart Rate 1: 62 bpm Height: 5'7" SpO2: 95% Weight: 252 lbs 03/06/2015 Blood Pressure 1: 142/88 Code : 8480-6 BMI: 39.3 Code : 38344-4 Heart Rate 1 : 65 bpm Height: [...] data Encounters Encounter Performer Location Codes Date ([id number]) [id number] EST. PATIENT, LEVEL III Diagnosis: Essential (primary) hypertension[ICD10: I10] Diagnosis: Low back pain[ICD10: M54.5] Alis Spring MD, [facility] CPT-4: 94719 08/15/2018 ([id number]) 44213 EST. PATIENT, LEVEL III Diagnosis: Essential (primary) hypertension[ICD10: I10] Diagnosis: Cough[ICD10: R05] Diagnosis: Low back pain[ICD10: M54.5] Alis Spring MD, [facility] CPT-4: 60125 08/01/2018 ([id number]) 88137 EST. PATIENT, LEVEL IV Diagnosis: Encounter for immunization[ICD10: Z23] Diagnosis: Essential (primary) hypertension[ICD10: I10] Diagnosis: Chronic atrial fibrillation[ICD10: I48.2] Diagnosis: Major depressive disorder, recurrent, mild[ICD10: F33.0] Scarlett Spring MD, [facility] CPT-4: 70341 04/20/2018 ([id number]) 03142 EST. PATIENT, LEVEL IV Diagnosis: Essential (primary) hypertension[ICD10: I10] Diagnosis: Obstructive sleep apnea (adult) (pediatric)[ICD10: G47.33] Diagnosis: Chronic atrial fibrillation[ICD10: I48.2] Scarlett Spring MD, [facility] CPT-4: 83898 12/16/2017 ([id number]) 69708 EST. PATIENT, LEVEL IV Diagnosis: Essential (primary) hypertension[ICD10: I10] Diagnosis: Chronic atrial fibrillation[ICD10: I48.2] Scarlett Srping MD, [facility] CPT-4: 80198 08/23/2017 ([id number]) 87101 EST. PATIENT, LEVEL IV Diagnosis: Paroxysmal atrial fibrillation[ICD10: I48.0] Diagnosis: Essential (primary) hypertension[ICD10: I10] Scarlett Spring MD, [facility] CPT-4: 80508 02/02/2017 [id number] EST. PATIENT, LEVEL III Diagnosis: Acute laryngopharyngitis[ICD10: J06.0] Diagnosis: Cough[ICD10: R05] Diagnosis: Pleurodynia[ICD10: R07.81] Diagnosis: Other dorsalgia[ICD10: M54.89] Kassandra Spring MD, [facility] CPT-4 : 70943 11/26/2016 ([id number]) 34712 EST. PATIENT, LEVEL IV Diagnosis: Essential (primary) hypertension[ICD10: I10] Diagnosis: Pain in left knee[ICD10: M25.562] Diagnosis: Low back pain[ICD10: M54.5] Diagnosis: Major depressive disorder, recurrent, moderate[ICD10: F33.1] Scarlett Spring MD, [facility] CPT-4: 78166 10/07/2016 ([id number]) 62067 EST. PATIENT, LEVEL IV Diagnosis: Essential (primary) hypertension[ICD10: I10] Diagnosis: Rash and other nonspecific skin eruption[ICD10: R21] Diagnosis: Major depressive disorder, recurrent, mild[ICD10: F33.0] Scarlett Spring MD, [facility] CPT-4: 62046 09/16/2016 [id number] EST. PATIENT, LEVEL IV Diagnosis: Pain in left lower leg[ICD10: M79.662] Diagnosis: Pain in left knee[ICD10: M25.562] Kassandra Spring MD, [facility] CPT -4: 97166 09/07/2016 ([id number]) 90987 EST. PATIENT, LEVEL IV Diagnosis: Encounter for immunization[ICD10: Z23] Diagnosis: Essential (primary) hypertension[ICD10: I10] Diagnosis: Mixed hyperlipidemia[ICD10: E78.2] Scarlett Spring MD, [facility] CPT-4: 56878 04/08/2016 ([id number]) 80939 EST. PATIENT, LEVEL III Diagnosis: Essential (primary) hypertension[ICD10: I10] Diagnosis: Shortness of breath[ICD10: R06.02] Scarlett Spring MD, [facility] CPT-4: 96837 03/05/2016 ([id number]) 10613 EST. PATIENT, LEVEL III Diagnosis: Chronic obstructive pulmonary disease, unspecified[ICD10: J44.9] Scarlett Spring MD [facility] CPT-4: 70781 12/04/2015 ([id number]) [id number] EST. PATIENT, LEVEL IV Diagnosis: Essential (primary) hypertension[ICD10: I10] Diagnosis: Allergic rhinitis due to pollen[ICD10: J30.1] Scarlett Spring MD, [facility] CPT-4: 32259 11/18/2015 ([id number]) [id number] EST. PATIENT, LEVEL IV Diagnosis: Localized edema[ICD10: R60.0] Diagnosis: Dysuria[ICD10: R30.0] Diagnosis: Essential (primary) hypertension[ICD10: I10] Diagnosis: Nausea[ICD10: R11.0] Alis Spring MD, [facility] [facility] CPT-4: 08024 09/30/2015 ([id number]) 65784 EST. PATIENT, LEVEL II Diagnosis: Methicillin susceptible Staphylococcus aureus infection as the cause of diseases classified elsewhere[ICD10: B95.61] Diagnosis: Methicillin susceptible Staphylococcus aureus infection, unspecified site[ICD10: A49.01] Alis Spring MD, [facility] CPT-4: 23657 09/09/2015 ([id number]) 07164 EST. PATIENT, LEVEL III Diagnosis: Dermatophytosis, unspecified[ICD10: B35.9] Diagnosis: Rash and other nonspecific skin eruption[ICD10: R21] [facility] CPT-4: 52338 08/28/2015 ([id number]) 11492 EST. PATIENT, LEVEL IV Diagnosis: Essential (primary) hypertension[ICD10: I10] Diagnosis: Gastro-esophageal reflux disease without esophagitis[ICD10: K21.9] Diagnosis: Other dorsalgia[ICD10: M54.89] [facility] CPT- 4: 45716 07/09/2015 ([id number]) OFFICE VISIT, NEW - LEVEL 4 Diagnosis: ESSENTIAL HYPERTENSION[ICD9: 401.9] Diagnosis: Osteoporosis[ICD9: 733.00] Diagnosis: Back pain[ICD9: 724.5] Diagnosis: Insomnia[ICD9: 780.52] Diagnosis: ESOPHAGEAL REFLUX[ICD9: 530.81] [facility] CPT- 4: 07182 03/06/2015 Plan of Care Planned Activity Notes [...] not improve 08/15/2018 Appointment: Alis Muhammad WPtel: [address] [place] [address] (30 min) Complex 08/15/2018 Patient Education: Patient Medication Summary Completed 08/15/2018 Patient Education: Back Pain Completed 08/15/2018 Visit Plan: HTN-onofre induced cough-stop lisinopril -start losartan -monitor blood pressure and follow up in 2 weeks Low back pain-xray lumbar spine and refer for PT 08/01/2018 Appointment: Alis Muhammad WPtel: [phone] [phone] (15 min) Moderate 08/01/2018 Patient Education: Patient Medication Summary Completed 08/01/2018 Patient Education: Back Pain Completed 08/01/2018 Care Plan: X-RAY EXAM L-S SPINE 2/3 VWS LOINC : 58364-5 Pending 08/01/2018 Visit Plan: Hypertension - well [...] shot today. 04/20/2018 Appointment: Scarlett Spring WPtel: [address] [place], [place] [phone] (15 min) Moderate 04/20/2018 Patient Education: Patient [...] surrogate. 02/09/2018 Appointment: Kassandra Argueta WPtel: [phone] [facility] [facility] - Annual Wellness Visit 02/09/2018 [...] night. 12/16/2017 Appointment: Scarlett Spring WPtel: [phone] [facility] (15 min) Moderate 12/16/2017 Patient Education: Patient [...] uncontrolled. 08/23/2017 Appointment: Scarlett Spring WPtel: [phone] [facility] (15 min) Moderate 08/23/2017 Patient Education: Patient [...] to cardiology 02/03/2017 Appointment: Kassandra Argueta WPtel: [phone] [place] [address] - Annual Wellness Visit 02/03/2017 Patient Education: [...] at home. 02/02/2017 Appointment: Scarlett Spring WPtel: [facility] (15 min) Moderate 02/02/2017 Patient Education: [...] improve. 11/26/2016 Appointment: Kassandra Argueta WPtel: [phone] [facility] (30 min) Complex 11/26/2016 Patient Education: Patient [...] symptoms. 10/07/2016 Appointment: Scarlett Spring WPtel: [phone] [facility] (15 min) Moderate 10/07/2016 Patient Education: Patient Medication Summary Completed 10/07/2016 Patient Education: Obesity Completed 10/07/2016 Patient Education: Hypertension Completed 10/07/2016 Care Plan: VASCULAR STUDY Pending 10/04/2016 Care Plan: X-RAY EXAM OF KNEE 3 [facility] : 49690-2 Pending 10/04/2016 Visit Plan: Hypertension - well [...] paroxetine 09/16/2016 [phone] (15 min) Moderate 09/16/2016 Patient Education: Patient [...] improve. 09/07/2016 Appointment[phone] [place] (10 min) Simple 09/07/2016 Patient [...] mammogram order 04/08/2016 Appointment: [facility] Spring [phone] [place] (15 min) Moderate 04/08/2016 Patient Education: [...] [facility] (15 min) Moderate 03/05/2016 Patient Education: Patient Medication Summary Completed 03/05/2016 Visit Plan: COPD - chronic problem for this patient. We have reviewed chronic treatment strategy, symptom control, and plans for acute exacerbations. No changes today to the current treatment plan as the patient is stable, monitor for acute changes. anoro samples given to the patient 12/04/2015 Appointment: Scarlett Spring [phone] [facility] (15 min) Moderate 12/04/2015 Patient Education: Patient [...] spray. 11/18/2015 Appointment: Scarlett Spring [facility]el[phone] [facility] [place] (15 min) Moderate 11/18/2015 Patient Education: Patient Medication Summary Completed 11/18/2015 Patient Education: Obesity Completed 11/18/2015 Patient Education: Hypertension Completed 11/18/2015 [facility]ment[facility] Spring [phone] [facility] (15 min) Moderate 11/07/2015 Visit Plan: Hypertension [...] culture report. 08/28/2015 Appointment: Scarlett Spring WPtel: [address] [place], [place] [address] (15 min) Moderate 08/28/2015 Patient Education: Patient [...] not improving. 07/09/2015 Appointment: [phone] (15 min) Moderate 07/09/2015 Patient Education: Patient [...] improving. 03/06/2015 Appointment: Scarlett Spring [facility]Ptel[phone] [facility] [place] ([place] New Patient 03/06/2015 Patient Education: [...] lumbar spine and refer for PT . Medicare Exam - today we discussed [...] RESOLVED . MSSA of groin and under kmarhuo-oyhmprszw-qaukiz bactrim and call if rash does not [...] and flu shot today mammogram order . Rash - dermatophytosis - recommended oral [...] DOPA paperwork for health care surrogate. . Hypertension - well controlled - continue [...]
--- OUTSIDE RECORDS SUMMARY | 2018-10-11 10:03 | XMS REPORT | CCD ---
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 Name Role Phone PP Unavailable CCM Unavailable Summary Purpose Interface Exchange Insurance Providers Payer name Policy type / Coverage type Covered libertarian ID Effective Begin Date Effective End Date WPS Medicare Part B Medicare Part B [id number] Unknown [employer] Medicare Part B [id number] Unknown Family history Mother Diagnosis Age At Onset Hypertension Unknown Heart Attack Unknown Brother Diagnosis Age At Onset Heart disease Unknown Runs in the family Diagnosis Age At Onset Heart disease Unknown Daughter Diagnosis Age At Onset Heart Attack Unknown Hyperlipidemia Unknown Hypertension Unknown Social History Social History Element Codes Description Effective Dates Number of children Unknown 2 daughter lives in [place], son - does not have contact [address]: 7578602 Quit over 10 years ago 1990 - previously smoked 2ppd x 25 years. 11/18/2015 Marital status Unknown in 201003/06/2015 Employment Unknown Retired was a [employer] 03/06/2015 Allergies, Adverse Reactions, Alerts Substance [...] Fill Instructions Keflex 500 mg capsule RxNorm: 481919 1 Capsule(s) PO TID 201808/24/2018 Active take probiotic while on abx Keflex 500 mg capsule RxNorm: 577636 1 Capsule(s) PO TID 201808/17/2018 Inactive paroxetine 20 mg tablet RxNorm: 8523004 TAKE ONE TABLET BY MOUTH DAILY 08/12/2018 08/06/2019 Active losartan 25 mg tablet RxNorm: 380334 1 Tablet(s) PO daily 201809/29/2018 Active losartan 25 mg tablet RxNorm: 271731 1 Tablet(s) PO daily 201809/29/2018 Active trazodone 50 mg tablet RxNorm: 787699 TAKE ONE TABLET BY MOUTH DAILY 07/25/2018 09/22/2018 Active Ambien 10 mg tablet RxNorm: 946282 Tablet(s) TAKE ONE TABLET BY MOUTH AT BEDTIME 06/24/2018 09/21/2018 Active trazodone 50 mg tablet RxNorm: 593679 TAKE ONE TABLET BY MOUTH DAILY 04/25/2018 07/23/2018 Inactive Ambien 10 mg tablet RxNorm: 863653 Tablet(s) TAKE ONE TABLET BY MOUTH AT BEDTIME 03/23/2018 06/19/2018 Inactive terazosin 5 mg capsule RxNorm: 498419 TAKE ONE CAPSULE BY MOUTH DAILY 03/14/2018 09/09/2018 Active Ambien 10 mg tablet RxNorm: 520297 Tablet(s) TAKE ONE TABLET BY MOUTH AT BEDTIME 01/18/2018 03/17/2018 Inactive trazodone 50 mg tablet RxNorm: 026399 TAKE ONE TABLET BY MOUTH ONCE DAILY 01/10/2018 03/22/2018 Inactive trazodone 50 mg tablet RxNorm: 015698 Tablet(s) TAKE ONE TABLET BY MOUTH ONCE DAILY 01/10/2018 04/24/2018 Inactive Ambien 10 mg tablet RxNorm: 547015 Tablet(s) TAKE ONE TABLET BY MOUTH AT BEDTIME 10/22/2017 01/17/2018 Inactive trazodone 50 mg tablet RxNorm: 764728 TAKE ONE TABLET BY MOUTH ONCE DAILY 10/18/2017 01/09/2018 Inactive omeprazole 20 mg capsule,delayed release RxNorm: 670517 TAKE ONE CAPSULE BY MOUTH ONCE DAILY AT BEDTIME 08/27/2017 No Stop Date Active trazodone 50 mg tablet RxNorm: 474514 TAKE ONE TABLET BY MOUTH ONCE DAILY 08/18/2017 10/17/2017 Inactive Ambien 10 mg tablet RxNorm: 339969 Tablet(s) TAKE ONE TABLET BY MOUTH AT BEDTIME 08/18/2017 03/22/2018 Inactive paroxetine 20 mg tablet RxNorm: 3984970 TAKE ONE TABLET BY MOUTH ONCE DAILY 07/27/2017 08/11/2018 Inactive Ambien 10 mg tablet RxNorm: 955890 Tablet(s) TAKE ONE TABLET BY MOUTH AT BEDTIME 06/23/2017 03/22/2018 Inactive omeprazole 20 mg capsule,delayed release RxNorm: 433425 TAKE ONE CAPSULE BY MOUTH ONCE DAILY AT BEDTIME 04/23/20172017 Inactive trazodone 50 mg tablet RxNorm: 690638 TAKE ONE TABLET BY MOUTH ONCE DAILY 04/13/2017 08/10/2017 Inactive terazosin 5 mg capsule RxNorm: 192603 Capsule(s) TAKE ONE CAPSULE BY MOUTH DAILY 04/08/2017 03/03/2018 Inactive Ambien 10 mg tablet RxNorm: 413217 Tablet(s) TAKE ONE TABLET BY MOUTH AT BEDTIME 02/17/2017 03/22/2018 Inactive Tylenol-Codeine #3 300 mg-30 mg tablet RxNorm: 525690 1 Tablet(s) PO QID as needed 02/02/2017 03/03/2017 Inactive metoprolol succinate ER 50 mg tablet,extended release 24 hr RxNorm: 397856 TAKE ONE TABLET BY MOUTH ONCE DAILY 12/23/2016 02/02/2017 Inactive Zithromax Z-Ted 250 mg tablet RxNorm: 187564 1 Tablet(s) PO UD 11/26/2016 02/16/2017 Inactive trazodone 50 mg tablet RxNorm: 317004 TAKE ONE TABLET BY MOUTH ONCE DAILY 11/12/2016 03/11/2017 Inactive Ambien 10 mg tablet RxNorm: 082388 Tablet(s) TAKE ONE TABLET BY MOUTH AT BEDTIME 10/22/2016 02/15/2017 Inactive paroxetine 20 mg tablet RxNorm: 4403230 1 Tablet(s) PO daily TAKE ONE TABLET BY MOUTH DAILY 09/16/2016 06/12/2017 Inactive meloxicam 7.5 mg tablet RxNorm: 438531 1 Tablet(s) PO daily 11/14/2016 Inactive Protonix 40 mg tablet,delayed release RxNorm: 107437 1 Tablet(s) PO daily 09/16/2016 08/22/2017 Inactive sucralfate 1 gram tablet RxNorm: 912854 1 Tablet(s) PO TID 08/22/2017 Inactive Ambien 10 mg tablet RxNorm: 477374 Tablet(s) TAKE ONE TABLET BY MOUTH AT BEDTIME 08/24/2016 03/22/2018 Inactive trazodone 50 mg tablet RxNorm: 045183 Tablet(s) TAKE ONE TABLET BY MOUTH DAILY 07/29/2016 11/11/2016 Inactive Ambien 10 mg tablet RxNorm: 660056 TAKE ONE TABLET BY MOUTH AT BEDTIME 06/23/2016 03/22/2018 Inactive Ambien 10 mg tablet RxNorm: 259044 Tablet(s) TAKE ONE TABLET BY MOUTH EVERY NIGHT AT BEDTIME 06/22/2016 06/23/2016 Inactive Lasix 40 mg tablet RxNorm: 896150 1 Tablet(s) PO daily as needed for swelling 04/03/2016 09/15/2016 Inactive potassium chloride ER 20 mEq tablet,extended release RxNorm: 770379 1 Tablet(s) PO daily for swelling take with lasix as needed 04/03/2016 09/15/2016 Inactive Ambien 10 mg tablet RxNorm: 855143 Tablet(s) TAKE ONE TABLET BY MOUTH EVERY NIGHT AT BEDTIME 04/03/2016 03/22/2018 Inactive omeprazole 20 mg capsule,delayed release RxNorm: 053570 TAKE ONE CAPSULE BY MOUTH EVERY NIGHT AT BEDTIME 03/31/20162016 Inactive paroxetine 20 mg tablet RxNorm: 2068790 TAKE ONE TABLET BY MOUTH DAILY 03/31/2016 09/15/2016 Inactive trazodone 50 mg tablet RxNorm: 182875 TAKE ONE TABLET BY MOUTH DAILY 03/20/2016 07/28/2016 Inactive terazosin 5 mg capsule RxNorm: 072353 TAKE ONE CAPSULE BY MOUTH DAILY 03/06/2016 10/06/2016 Inactive Ambien 10 mg tablet RxNorm: 815809 Tablet(s) TAKE ONE TABLET BY MOUTH EVERY NIGHT AT BEDTIME 01/17/2016 04/02/2016 Inactive loratadine 10 mg tablet RxNorm: 016395 1 Tablet(s) PO daily 09/15/2016 Inactive mupirocin 2 % topical ointment RxNorm: 601635 1 Application TOP TID 11/18/2015 12/01/2015 Inactive metoprolol succinate ER 50 mg tablet,extended release 24 hr RxNorm: 815381 1 Tablet(s) PO daily 11/18/2015 11/11/2016 Inactive loratadine 10 mg tablet RxNorm: 674667 1 Tablet(s) PO daily 01/14/2016 Inactive Lasix 40 mg tablet RxNorm: 473876 1 Tablet(s) PO daily as needed for swelling 10/30/2015 11/28/2015 Inactive potassium chloride ER 20 mEq tablet,extended release RxNorm: 146575 1 Tablet(s) PO daily for swelling take with lasix as needed 10/30/2015 11/28/2015 Inactive Tylenol-Codeine #3 300 mg-30 mg tablet RxNorm: 927232 1 Tablet(s) PO QID as needed 10/25/2015 02/01/2017 Inactive Ambien 10 mg tablet RxNorm: 597805 Tablet(s) TAKE ONE TABLET BY MOUTH EVERY NIGHT AT BEDTIME 10/18/2015 03/22/2018 Inactive Diflucan 150 mg tablet RxNorm: 599523 1 Tablet(s) PO daily 02/201612/03/2015 Inactive Lasix 20 mg tablet RxNorm: 730154 1 Tablet(s) PO PRN fror swelling 09/27/2015 10/29/2015 Inactive potassium chloride ER 10 mEq capsule,extended release RxNorm: 945518 1 Capsule(s) PO PRN for swelling take with lasix 09/27/2015 10/29/2015 Inactive Bactrim DS 800 mg-160 mg tablet RxNorm: 058651 1 Tablet(s) PO BID 09/02/2015 09/11/2015 Inactive Bactrim DS 800 mg-160 mg tablet RxNorm: 768096 1 Tablet(s) PO BID 09/02/2015 09/01/2015 Inactive nystatin 100,000 unit/gram topical cream RxNorm: 617405 1 Gram(s) TOP TID 08/28/2015 09/26/2015 Inactive Diflucan 150 mg tablet RxNorm: 369176 1 Tablet(s) PO daily 09/201509/06/2015 Inactive betamethasone dipropionate 0.05 % topical ointment RxNorm: 942421 1 Application TOP TID to affected area 08/02/20152016 Inactive nystatin 100,000 unit/gram topical powder RxNorm: 020495 1 Gram(s) TOP QID 07/09/2015 08/01/2015 Inactive Ambien 10 mg tablet RxNorm: 654428 1 Tablet(s) PO QHS 201406/18/2015 Inactive Ambien 10 mg tablet RxNorm: 885999 TAKE ONE TABLET BY MOUTH EVERY NIGHT AT BEDTIME 06/19/2015 09/16/2015 Inactive Vitamin D2 50,000 unit capsule RxNorm: 657899 1 Capsule(s) PO QW 03/07/2015 03/06/2015 Inactive Vitamin D2 50,000 unit capsule RxNorm: 552286 1 Capsule(s) PO QW 03/07/2015 05/05/2015 Inactive terazosin 5 mg capsule RxNorm: 962553 1 Capsule(s) PO daily 06/201502/28/2016 Inactive [SAVINGS FOR NON-COVERED DRUGS -- BIN:[id number], PCN: [id number], Group: XXXXX, ID# [id number], Questions: . THIS IS NOT INSURANCE.] trazodone 50 mg tablet RxNorm: 859010 1 Tablet(s) PO daily 06/201502/28/2016 Inactive paroxetine 20 mg tablet RxNorm: 7788582 1 Tablet(s) PO daily 02/28/2016 Inactive Tylenol-Codeine #3 300 mg-30 mg tablet RxNorm: 409323 1 Tablet(s) PO QID as needed 03/06/2015 07/02/2015 Inactive amlodipine 10 mg tablet RxNorm: 459500 1 Tablet(s) PO daily 06/201511/17/2015 Inactive metoprolol succinate ER 25 mg tablet,extended release 24 hr RxNorm: 945701 1 Tablet(s) PO daily 03/06/2015 11/17/2015 Inactive omeprazole 20 mg capsule,delayed release RxNorm: 745790 1 Capsule(s) PO QHS 03/06/2015 02/28/2016 Inactive omeprazole 20 mg capsule,delayed release RxNorm: 079840 1 Capsule(s) PO QHS 01/31/2015 01/30/2015 Inactive omeprazole 20 mg capsule,delayed release RxNorm: 150889 1 Capsule(s) PO QHS 01/31/2015 01/30/2015 Inactive omeprazole 20 mg capsule,delayed release RxNorm: 170677 1 Capsule(s) PO QHS 01/31/2015 03/05/2015 Inactive Ambien 10 mg tablet RxNorm: 231934 1 Tablet(s) PO QHS 201404/21/2015 Inactive paroxetine 20 mg tablet RxNorm: 359920 1 Tablet(s) PO daily 08/201412/24/2014 Inactive Ambien 10 mg tablet RxNorm: 691849 1 Tablet(s) PO QHS 201412/24/2014 Inactive paroxetine 20 mg tablet RxNorm: 519249 1 Tablet(s) PO daily 08/201403/05/2015 Inactive terazosin 5 mg capsule RxNorm: 670584 1 Capsule(s) PO daily 07/201403/05/2015 Inactive [SAVINGS FOR NON-COVERED DRUGS -- BIN:230130, PCN: [id number], Group: XXXXX, ID# [id number], Questions: . THIS IS NOT INSURANCE.] terazosin 5 mg capsule RxNorm: 177451 1 Capsule(s) PO daily 07/201411/22/2014 Inactive Lasix 20 mg tablet RxNorm: 121077 1 Tablet(s) PO daily No Start Date Active K-Dur 10 mEq tablet,extended release RxNorm: 615717 1 Tablet(s) PO daily No Start Date Active hydrochlorothiazide 25 mg tablet RxNorm: 549345 1 Tablet(s) PO daily No Start Date Active Eliquis 5 mg tablet RxNorm: 8539188 1 Tablet(s) PO BID No Start Date Active Vitamin D3 2,000 unit tablet RxNorm: 423109 1 Tablet(s) PO daily No Start Date Active amiodarone 200 mg tablet RxNorm: 067736 1 Tablet(s) PO BID No Start Date Active Zetia 10 mg tablet RxNorm: 509440 1 Tablet(s) PO daily No Start Date Active Lipitor 80 mg tablet RxNorm: 611386 1/2 Tablet(s) PO daily No Start Date Active metoprolol succinate ER 25 mg tablet,extended release 24 hr RxNorm: 180717 1 Tablet(s) PO daily No Start Date 2014 Inactive Entresto 49 mg-51 mg tablet RxNorm: 2288308 1 Tablet(s) PO BID No Start Date 04/19/2018 Inactive sotalol 80 mg tablet RxNorm: 2810922 1 Tablet(s) PO BID No Start Date 04/19/2018 Inactive betamethasone dipropionate 0.05 % topical ointment RxNorm: 154639 1 Application TOP TID to affected area No Start Date 01/2016 Inactive trazodone 50 mg tablet RxNorm: 465825 1 Tablet(s) PO daily No Start Date 03/05/2015 Inactive potassium chloride ER 10 mEq capsule,extended release RxNorm: 343014 1 Capsule(s) PO PRN for swelling take with lasix No Start Date 09/26/2015 Inactive amlodipine 10 mg tablet RxNorm: 516025 1 Tablet(s) PO daily No Start Date 03/05/2015 Inactive isosorbide mononitrate ER 30 mg tablet,extended release 24 hr RxNorm: 836893 1 Tablet(s) PO daily No Start Date 2017 Inactive aspirin 81 mg tablet,delayed release RxNorm: 859822 1 Tablet(s) PO daily No Start Date 02/02/2017 Inactive Lasix 20 mg tablet RxNorm: 995513 1 Tablet(s) PO PRN fror swelling No Start Date 09/26/2015 Inactive lisinopril 5 mg tablet RxNorm: 861486 1 Tablet(s) PO daily No Start Date 07/31/2018 Inactive Crestor 40 mg tablet RxNorm: 775080 1 Tablet(s) PO daily No Start Date 09/15/2016 Inactive metoprolol succinate ER 100 mg tablet,extended release 24 hr RxNorm: 561213 1 Tablet(s) PO daily No Start Date [...] Item Item Code Result Date Comp Metabolic Qhe999 NA 140 mEq/L 08/01/2018 Comp Metabolic Moh739 K 4.2 mEq/L 08/01/2018 Comp Metabolic Zlt532 CL 102 mEq/L 08/01/2018 Comp Metabolic Ymr307 CO2 27.0 mEq/L 08/01/2018 Comp Metabolic Dzp557 ANION GAP 15 08/01/2018 Comp Metabolic Tjf310 GLUCOSE 107 mg/dL 08/01/2018 Comp Metabolic Hug755 Creat 1.0 mg/dL 08/01/2018 Comp Metabolic Gag335 eGFR 58 ml/min/1.73m2 08/01/2018 Comp Metabolic Xcc844 BUN 10 mg/dL 08/01/2018 Comp Metabolic Urb323 B/C Ratio 10.0 Ratio 08/01/2018 Comp Metabolic Ykk381 CALCIUM 8.9 mg/dL 08/01/2018 Comp Metabolic Jwg102 ALK PHOS 68 U/L 08/01/2018 Comp Metabolic Jej882 AST(SGOT) 18 U/L 08/01/2018 Comp Metabolic Wwe182 ALT(SGPT) 14 U/L 08/01/2018 Comp Metabolic Niq113 BILI T 0.5 mg/dL 08/01/2018 Comp Metabolic Fuq039 ALBUMIN 4.0 g/dL 08/01/2018 Comp Metabolic Xfd125 TPRO 6.3 g/dL 08/01/2018 Comp Metabolic Djk776 GLOB 2.3 g/dL 08/01/2018 Comp Metabolic Qiw265 A/G Ratio 1.7 Ratio 08/01/2018 Comp Metabolic Mjw084 Osmo 279 mOsmo 08/01/2018 Tsh Ord6 TSH [...] 19.8 % 08/01/2018 Cbc With Differential Ord2 [place]% 9.8 % 08/01/2018 Cbc With Differential Ord2 [...] 0.79 K/ul 08/01/2018 Cbc With Differential Ord2 [place] ABS# 0.4 K/ul 08/01/2018 Cbc With Differential Ord2 Eos ABS# 0.1 K/ul 08/01/2018 Cbc With Differential Ord2 Baso ABS# 0.0 K/ul 08/01/2018 Lipid Ord30 CHOL 234 mg/dL 08/01/2018 Lipid Ord30 HDL 69.0 mg/dl 08/01/2018 Lipid Ord30 TRIG 57 mg/dL 08/01/2018 Lipid Ord30 LDL 154 mg/dL 08/01/2018 Lipid Ord30 C/HDL 3.4 Ratio 08/01/2018 Comp Metabolic Sue679 NA 137 mEq/L 09/30/2015 Comp Metabolic Pwp096 K 4.5 mEq/L 09/30/2015 Comp Metabolic Oxp963 CL 102 mEq/L 09/30/2015 Comp Metabolic Tpn000 CO2 26.0 mEq/L 09/30/2015 Comp Metabolic Bnc967 ANION GAP 14 09/30/2015 Comp Metabolic Qyt382 GLUCOSE 89 mg/dL 09/30/2015 Comp Metabolic Ysa011 Creat 0.8 mg/dL 09/30/2015 Comp Metabolic Hka694 eGFR 79 ml/min/1.73m2 09/30/2015 Comp Metabolic Ziv841 BUN 14 mg/dL 09/30/2015 Comp Metabolic Ydw459 B/C Ratio 18.2 Ratio 09/30/2015 Comp Metabolic Lcw035 CALCIUM 8.9 mg/dL 09/30/2015 Comp Metabolic Epa092 ALK PHOS 65 U/L 09/30/2015 Comp Metabolic Qpi441 AST(SGOT) 26 U/L 09/30/2015 Comp Metabolic Hpo407 ALT(SGPT) 18 U/L 09/30/2015 Comp Metabolic Hth054 BILI T 0.6 mg/dL 09/30/2015 Comp Metabolic Bpw600 ALBUMIN 3.8 g/dL 09/30/2015 Comp Metabolic Bii042 TPRO 6.6 g/dL 09/30/2015 Comp Metabolic Ela863 GLOB 2.8 g/dL 09/30/2015 Comp Metabolic Yip157 A/G Ratio 1.4 Ratio 09/30/2015 Comp Metabolic Enl124 Osmo 274 mOsmo 09/30/2015 Cbc With Differential [...] 27.7 pg 09/30/2015 Cbc With Differential Ord2 [place]% 10.7 % 09/30/2015 Cbc With Differential Ord2 [...] 1.10 K/ul 09/30/2015 Cbc With Differential Ord2 [place] ABS# 0.6 K/ul 09/30/2015 Cbc With Differential Ord2 Eos ABS# 0.2 K/ul 09/30/2015 Cbc With Differential Ord2 Baso ABS# 0.0 K/ul 09/30/2015 Cbc With Differential Ord2 New Analyzer Notice Please note new ref ranges starting 08-07-2015 due to implemntation of new five part differential hematolgy analyzer. 09/30/2015 Tsh Ord6 hTSH II 1.05 uIU/mL 03/06/2015 Comp Metabolic Bbt078 NA 137 mEq/L 03/06/2015 Comp Metabolic Jam346 K 4.3 mEq/L 03/06/2015 Comp Metabolic Klq453 CL 104 mEq/L 03/06/2015 Comp Metabolic Klw754 CO2 28.0 mEq/L 03/06/2015 Comp Metabolic Doy879 ANION GAP 9 03/06/2015 Comp Metabolic Yur896 GLUCOSE 93 mg/dL 03/06/2015 Comp Metabolic Ghu721 Creat 0.8 mg/dL 03/06/2015 Comp Metabolic Abo367 eGFR 81 ml/min/1.73m2 03/06/2015 Comp Metabolic Euj566 BUN 12 mg/dL 03/06/2015 Comp Metabolic Arb060 B/C Ratio 16.0 Ratio 03/06/2015 Comp Metabolic Hnx642 CALCIUM 8.9 mg/dL 03/06/2015 Comp Metabolic Dpl792 ALK PHOS 56 U/L 03/06/2015 Comp Metabolic Nuh485 AST(SGOT) 22 U/L 03/06/2015 Comp Metabolic Ywd658 ALT(SGPT) 15 U/L 03/06/2015 Comp Metabolic Alz273 BILI T 0.4 mg/dL 03/06/2015 Comp Metabolic Ttg627 ALBUMIN 4.0 g/dL 03/06/2015 Comp Metabolic Lgo081 TPRO 6.5 g/dL 03/06/2015 Comp Metabolic Pav853 GLOB 2.5 g/dL 03/06/2015 Comp Metabolic Kww629 A/G Ratio 1.6 Ratio 03/06/2015 Comp Metabolic Oat242 Osmo 273 mOsmo 03/06/2015 Vitamin D 25 Oh Fsk8097 VITAMIN D, 25 HYDROXY 28.14 ng/mL Cbc [...] dentition 08/15/2018 None Full Exam - General 1995 [...] dentition 04/20/2018 None Full Exam - General 1995 Ears/Nose/Throat oral cavity/pharynx/larynx Overall: hypopharynx benign 04/20/2018 [...] Codes Date URINALYSIS NONAUTO W/O SCOPE CPT-4: 55999 08/18/2018 ADMIN INFLUENZA VIRUS VAC CPT-4: G0008 04/20/2018 FLU VACC PRSV FREE INC ANTIG Formatting Model/CDA Sections, Assigned to/Amparo Mims CPT-4: 40708Jbohhzf 04/20/2018 PPPS, SUBSEQ VISIT CPT -4: G0439 02/09/2018 PPPS, SUBSEQ VISIT CPT -4: G0439 02/03/2017 ADMIN INFLUENZA VIRUS VAC CPT-4: G0008 04/08/2016 ADMIN PNEUMOCOCCAL VACCINE SNOMED CT: 59992722 CPT-4: G0009 04/08/2016 PNEUMOCOCCAL VACC [address]: 79061500 CPT-4: 21805 04/08/2016 FLU VACC PRSV FREE INC ANTIG CPT-4: 41533 04/08/2016 Vital Signs Date Vital 08/15/2018 Blood Pressure 1: 140/90 Code : 8480-6 BMI: 40.7 Code : 60687-6 Heart Rate 1 : 70 bpm Height: 5'7" SpO2: 93% Weight: 260 lbs 08/01/2018 Blood Pressure 1: 130/70 Code : 8480-6 BMI: 40.7 Code : 29749-8 Heart Rate 1 : 80 bpm Height: 5'7" SpO2: 93% Weight: 260 lbs 04/20/2018 Blood Pressure 1: 128/68 Code : 8480-6 BMI: 41.7 Code : 93160-8 Heart Rate 1 : 85 bpm Height: 5'7" SpO2: 94% Weight: 266 lbs 02/09/2018 Blood Pressure 1: 118/70 Code : 8480-6 BMI: 42.1 Code : 12275-5 Heart Rate 1 : 58 bpm Height: 5'7" SpO2: 94% Weight: 269 lbs 12/16/2017 Blood Pressure 1: 132/86 Code : 8480-6 BMI: 42.7 Code : 59365-8 Heart Rate 1 : 63 bpm Height: 5'7" SpO2: 94% Weight: 272 lbs 14 oz 08/23/2017 Blood Pressure 1: 150/82 Code : 8480-6 BMI: 42.0 Code : 41173-8 Heart Rate 1 : 66 bpm Height: 5'7" SpO2: 96% Weight: 268 lbs 02/03/2017 Blood Pressure 1: 138/72 Code : 8480-6 BMI: 41.2 Code : 50031-2 Heart Rate 1 : 96 bpm Height: 5'7" SpO2: 97% Weight: 263 lbs 02/02/2017 Blood Pressure 1: 140/90 Code : 8480-6 BMI: 41.2 Code : 17248-2 Heart Rate 1 : 103 bpm Height: 5'7" SpO2: 94% Weight: 263 lbs 11/26/2016 Blood Pressure 1: 152/88 Code : 8480-6 BMI: 41.0 Code : 78082-4 Heart Rate 1 : 71 bpm Height: 5'7" SpO2: 94% Temperature: 37.7 (C) / 99.8 (F) Weight: 262 lbs 10/07/2016 Blood Pressure 1: 148/82 Code : 8480-6 BMI: 41.7 Code : 70562-5 Heart Rate 1 : 58 bpm Height: 5'7" SpO2: 96% Weight: 266 lbs 09/16/2016 Blood Pressure 1: 122/70 Code : 8480-6 BMI: 42.0 Code : 48597-1 Heart Rate 1 : 65 bpm Height: 5'7" SpO2: 96% Weight: 268 lbs 09/07/2016 Blood Pressure 1: 154/60 Code : 8480-6 BMI: 42.3 Code : 10423-8 Heart Rate 1 : 101 bpm Height: 5'7" SpO2: 97% Weight: 270 lbs 04/08/2016 Blood Pressure 1: 128/70 Code : 8480-6 BMI: 41.4 Code : 81967-4 Heart Rate 1 : 62 bpm Height: 5'7" SpO2: 95% Weight: 264 lbs 8 oz 03/05/2016 Blood Pressure 1: 144/78 Code : 8480-6 Blood Pressure 1: 139/72 Code: 8480-6 BMI: 41.9 Code: 61302-7 Heart Rate 1: 71 bpm Height: 5'7" SpO2: 93% Weight: 267 lbs 8 oz 12/04/2015 Blood Pressure 1: 132/70 Code : 8480-6 BMI: 41.3 Code : 94730-7 Heart Rate 1 : 56 bpm Height: 5'7" SpO2: 96% Weight: 264 lbs 11/18/2015 Blood Pressure 1: 138/72 Code : 8480-6 BMI: 41.0 Code : 64039-3 Heart Rate 1 : 85 bpm Height: 5'7" SpO2: 93% Weight: 262 lbs 09/30/2015 Blood Pressure 1: 128/76 Code : 8480-6 BMI: 41.2 Code : 06672-8 Heart Rate 1 : 70 bpm Height: 5'7" SpO2: 93% Weight: 263 lbs 09/09/2015 Blood Pressure 1: 138/80 Code : 8480-6 BMI: 40.3 Code : 70024-8 Heart Rate 1 : 84 bpm Height: 5'7" SpO2: 95% Weight: 257 lbs 08/28/2015 Blood Pressure 1: 122/72 Code : 8480-6 BMI: 39.6 Code : 62384-8 Heart Rate 1 : 75 bpm Height: 5'7" SpO2: 96% Weight: 253 lbs 07/09/2015 Blood Pressure 1: 135/78 Code : 8480-6 Blood Pressure 1: 140/78 Code: 8480-6 BMI: 39.5 Code: 05449-9 Heart Rate 1: 62 bpm Height: 5'7" SpO2: 95% Weight: 252 lbs 03/06/2015 Blood Pressure 1: 142/88 Code : 8480-6 BMI: 39.3 Code : 52671-5 Heart Rate 1 : 65 bpm Height: [...] data Encounters Encounter Performer Location Codes Date ([id number]) [id number] EST. PATIENT, LEVEL III Diagnosis: Essential (primary) hypertension[ICD10: I10] Diagnosis: Low back pain[ICD10: M54.5] Alis Spring MD, [facility] CPT-4: 84303 08/15/2018 ([id number]) 75956 EST. PATIENT, LEVEL III Diagnosis: Essential (primary) hypertension[ICD10: I10] Diagnosis: Cough[ICD10: R05] Diagnosis: Low back pain[ICD10: M54.5] Alis Spring MD, [facility] CPT-4: 87539 08/01/2018 ([id number]) 87921 EST. PATIENT, LEVEL IV Diagnosis: Encounter for immunization[ICD10: Z23] Diagnosis: Essential (primary) hypertension[ICD10: I10] Diagnosis: Chronic atrial fibrillation[ICD10: I48.2] Diagnosis: Major depressive disorder, recurrent, mild[ICD10: F33.0] Scarlett Spring MD, [facility] CPT-4: 82487 04/20/2018 ([id number]) 24862 EST. PATIENT, LEVEL IV Diagnosis: Essential (primary) hypertension[ICD10: I10] Diagnosis: Obstructive sleep apnea (adult) (pediatric)[ICD10: G47.33] Diagnosis: Chronic atrial fibrillation[ICD10: I48.2] Scarlett Spring MD, [facility] CPT-4: 90882 12/16/2017 ([id number]) 71862 EST. PATIENT, LEVEL IV Diagnosis: Essential (primary) hypertension[ICD10: I10] Diagnosis: Chronic atrial fibrillation[ICD10: I48.2] Scarlett Spring MD [facility] CPT-4: 31217 08/23/2017 ([id number]) 71818 EST. PATIENT, LEVEL IV Diagnosis: Paroxysmal atrial fibrillation[ICD10: I48.0] Diagnosis: Essential (primary) hypertension[ICD10: I10] Scarlett Spring MD, [facility] CPT-4: 17026 02/02/2017 06609 EST. PATIENT, LEVEL III Diagnosis: Acute laryngopharyngitis[ICD10: J06.0] Diagnosis: Cough[ICD10: R05] Diagnosis: Pleurodynia[ICD10: R07.81] Diagnosis: Other dorsalgia[ICD10: M54.89] Kassandra Spring MD, [facility] CPT-4 : 87995 11/26/2016 ([id number]) 70393 EST. PATIENT, LEVEL IV Diagnosis: Essential (primary) hypertension[ICD10: I10] Diagnosis: Pain in left knee[ICD10: M25.562] Diagnosis: Low back pain[ICD10: M54.5] Diagnosis: Major depressive disorder, recurrent, moderate[ICD10: F33.1] Scarlett Spring MD, [facility] CPT-4: 41680 10/07/2016 ([id number]) 93715 EST. PATIENT, LEVEL IV Diagnosis: Essential (primary) hypertension[ICD10: I10] Diagnosis: Rash and other nonspecific skin eruption[ICD10: R21] Diagnosis: Major depressive disorder, recurrent, mild[ICD10: F33.0] Scarlett Spring MD, [facility] CPT-4: 31046 09/16/2016 88485 EST. PATIENT, LEVEL IV Diagnosis: Pain in left lower leg[ICD10: M79.662] Diagnosis: Pain in left knee[ICD10: M25.562] Kassandra Spring MD, [facility] CPT -4: 16493 09/07/2016 ([id number]) 64204 EST. PATIENT, LEVEL IV Diagnosis: Encounter for immunization[ICD10: Z23] Diagnosis: Essential (primary) hypertension[ICD10: I10] Diagnosis: Mixed hyperlipidemia[ICD10: E78.2] Scarlett Spring MD [facility] CPT-4: 69523 04/08/2016 ([id number]) 45166 EST. PATIENT, LEVEL III Diagnosis: Essential (primary) hypertension[ICD10: I10] Diagnosis: Shortness of breath[ICD10: R06.02] Scarlett Spring MD [facility] CPT-4: 16531 03/05/2016 ([id number]) [id number] EST. PATIENT, LEVEL III Diagnosis: Chronic obstructive pulmonary disease, unspecified[ICD10: J44.9] Scarlett Spring MD [facility] CPT-4: 21166 12/04/2015 ([id number]) 21723 EST. PATIENT, LEVEL IV Diagnosis: Essential (primary) hypertension[ICD10: I10] Diagnosis: Allergic rhinitis due to pollen[ICD10: J30.1] Scarlett Spring MD [facility] CPT-4: 29945 11/18/2015 ([id number]) 00884 EST. PATIENT, LEVEL IV Diagnosis: Localized edema[ICD10: R60.0] Diagnosis: Dysuria[ICD10: R30.0] Diagnosis: Essential (primary) hypertension[ICD10: I10] Diagnosis: Nausea[ICD10: R11.0] Alis Spring MD [facility] CPT-4: 25660 09/30/2015 ([id number]) [id number] EST. PATIENT, LEVEL II Diagnosis: Methicillin susceptible Staphylococcus aureus infection as the cause of diseases classified elsewhere[ICD10: B95.61] Diagnosis: Methicillin susceptible Staphylococcus aureus infection, unspecified site[ICD10: A49.01] Alis Spring MD [facility] CPT-4: 90177 09/09/2015 ([id number]) 75106 EST. PATIENT, LEVEL III Diagnosis: Dermatophytosis, unspecified[ICD10: B35.9] Diagnosis: Rash and other nonspecific skin eruption[ICD10: R21] Scarlett Spring MD [facility] CPT-4: 94651 08/28/2015 ([id number]) 30571 EST. PATIENT, LEVEL IV Diagnosis: Essential (primary) hypertension[ICD10: I10] Diagnosis: Gastro-esophageal reflux disease without esophagitis[ICD10: K21.9] Diagnosis: Other dorsalgia[ICD10: M54.89] [facility] CPT- 4: 60795 07/09/2015 ([id number]) OFFICE VISIT, NEW - LEVEL 4 Diagnosis: ESSENTIAL HYPERTENSION[ICD9: 401.9] Diagnosis: Osteoporosis[ICD9: 733.00] Diagnosis: Back pain[ICD9: 724.5] Diagnosis: Insomnia[ICD9: 780.52] Diagnosis: ESOPHAGEAL REFLUX[ICD9: 530.81] [facility] CPT- 4: 62542 03/06/2015 Plan of Care Planned Activity Notes Codes Status Date Patient Education: Patient Medication Summary Completed 08/18/2018 Care Plan: Urine Culture Pending 08/18/2018 Visit Plan: Hypertension - not well [...] improve 08/15/2018 Appointment: Alis Muhammad WPtel: [address] [place], [place] [phone] [place] [address] (30 min) Complex 08/15/2018 Patient Education: Patient Medication Summary Completed 08/15/2018 Patient Education: Back Pain Completed 08/15/2018 Visit Plan: HTN-onofre induced cough-stop lisinopril -start losartan -monitor blood pressure and follow up in 2 weeks Low back pain-xray lumbar spine and refer for PT 08/01/2018 Appointment: Alis Muhammad WPtel: [address] [place], [place] [phone] (15 min) Moderate 08/01/2018 Patient Education: Patient Medication Summary Completed 08/01/2018 Patient Education: Back Pain Completed 08/01/2018 Care Plan: X-RAY EXAM L-S SPINE 2/3 VWS LOINC : 73939-0 Pending 08/01/2018 Visit Plan: Hypertension - well [...] shot today. 04/20/2018 Appointment: Scarlett Spring WPtel: [facility] (15 min) Moderate 04/20/2018 Patient Education: Patient [...] care surrogate. 02/09/2018 Appointment: Kassandra Argueta WPtel: [phone] [facility] [facility] - Annual Wellness Visit 02/09/2018 Patient [...] every night. 12/16/2017 Appointment: Scarlett Spring WPtel: [phone] [facility] (15 min) Moderate 12/16/2017 Patient Education: Patient [...] becoming uncontrolled. 08/23/2017 Appointment: Scarlett Spring WPtel[phone] (15 min) Moderate 08/23/2017 Patient Education: Patient [...] to cardiology 02/03/2017 [facility]ment[phone] [facility] - Annual Wellness Visit 02/03/2017 Patient [...] home. 02/02/2017 Appointment: Scarlett Spring WPtel: [phone] [facility] (15 min) Moderate 02/02/2017 Patient Education: Patient [...] improve. 11/26/2016 Appointment: [phone] (30 min) Complex 11/26/2016 [...] symptoms. 10/07/2016 Appointment: Scarlett Spring WPtel[phone] [place] (15 min) Moderate 10/07/2016 Patient Education: Patient Medication Summary Completed 10/07/2016 Patient Education: Obesity Completed 10/07/2016 Patient Education: Hypertension Completed 10/07/2016 Care Plan: VASCULAR STUDY Pending 10/04/2016 Care Plan: X-RAY EXAM OF KNEE 3 [facility] : 32035-5 Pending 10/04/2016 Visit Plan: Hypertension - well [...] for paroxetine 09/16/2016 Appointment: Scarlett Spring WPtel: [phone] [place] (15 min) Moderate 09/16/2016 Patient Education: [...] improve. 09/07/2016 Appointment: [phone] (10 min) Simple 09/07/2016 Patient Education: [...] order 04/08/2016 Appointment: Scarlett Spring WPtel[phone] (15 min) Moderate 04/08/2016 Patient Education: Patient [...] days. 03/05/2016 Appointment: Scarlett Spring [facility]Ptel[phone] (15 min) Moderate 03/05/2016 Patient Education: Patient Medication Summary Completed 03/05/2016 Visit Plan: COPD - chronic problem for this patient. We have reviewed chronic treatment strategy, symptom control, and plans for acute exacerbations. No changes today to the current treatment plan as the patient is stable, monitor for acute changes. anoro samples given to the patient 12/04/2015 Appointment: Scarlett Spring WPtel: [facility]5 [facility] (15 min) Moderate 12/04/2015 Patient Education: Patient [...] allergy spray. 11/18/2015 Appointment: Scarlett Spring WPtel: [facility]5 [facility] (15 min) Moderate 11/18/2015 Patient Education: Patient Medication Summary Completed 11/18/2015 Patient Education: Obesity Completed 11/18/2015 Patient Education: Hypertension Completed 11/18/2015 Appointment: Scarlett Spring WPtel: [facility]7 [facility] (15 min) Moderate 11/07/2015 Visit Plan: Hypertension [...] culture report. 08/28/2015 Appointment: Scarlett Spring WPtel: [facility] (15 min) Moderate 08/28/2015 Patient Education: Patient [...] not improving. 07/09/2015 Appointment: Scarlett Spring WPtel: [facility]7 [facility] (15 min) Moderate 07/09/2015 Patient Education: Patient [...] not improving. 03/06/2015 Appointment: Scarlett Spring WPtel: [address] [place], [place] [id number] [place] ([place]) New Patient 03/06/2015 Patient Education: [...] RESOLVED . MSSA of groin and under [id number] bactrim and call if rash does not [...]
--- OUTSIDE RECORDS SUMMARY | 2018-10-11 10:06 | XMS REPORT | CCD ---
Author Author Scarlett Spring Organization Scarlett Spring MD, [facility] Address [address] [place] [address] Phone Care Team Providers Care Slasher Name Role Phone PP Unavailable CCM Unavailable Summary Purpose Interface Exchange Insurance Providers Payer name Policy type / Coverage type Covered alliance party ID Effective Begin Date Effective End Date WPS Medicare Part B Medicare Part B [id number] Unknown [employer] Medicare Part B [id number] Unknown Family history Mother Diagnosis Age At Onset Hypertension Unknown Heart Attack Unknown Brother Diagnosis Age At Onset Heart disease Unknown Runs in the family Diagnosis Age At Onset Heart disease Unknown Daughter Diagnosis Age At Onset Heart Attack Unknown Hyperlipidemia Unknown Hypertension Unknown Social History Social History Element Codes Description Effective Dates Number of children Unknown 2 daughter lives in [place], son - does not have contact [address]: 6763038 Quit over 10 years ago 1990 - previously smoked 2ppd x 25 years. 11/18/2015 Marital status Unknown in 201003/06/2015 Employment Unknown Retired was a [employer] 03/06/2015 Allergies, Adverse Reactions, Alerts Substance Reaction Codes Entered Date Inactivated Date Status * NO KNOWN FOOD ALLERGIES Unknown 03/06/2015 No Inactive Date Active Iodine RxNorm: 5933 03/06/2015 No Inactive Date Active Penicillin Unknown 03/06/2015 No Inactive Date Active Past Medical History Illness Codes Condition Status Onset Date Resolved Date Essential (primary) hypertension ICD-9: 401.1 ICD-10: I10 [...] Problems Condition Codes Effective Dates Condition Status Essential (primary) hypertension ICD-9: 401.1 ICD-10: I10 [...] Fill Instructions Keflex 500 mg capsule RxNorm: 185798 1 Capsule(s) PO TID 201808/24/2018 Active take probiotic while on abx Keflex 500 mg capsule RxNorm: 960449 1 Capsule(s) PO TID 201808/17/2018 Inactive paroxetine 20 mg tablet RxNorm: 2121418 TAKE ONE TABLET BY MOUTH DAILY 08/12/2018 08/06/2019 Active losartan 25 mg tablet RxNorm: 882691 1 Tablet(s) PO daily 201809/29/2018 Active losartan 25 mg tablet RxNorm: 204371 1 Tablet(s) PO daily 201809/29/2018 Active trazodone 50 mg tablet RxNorm: 617848 TAKE ONE TABLET BY MOUTH DAILY 07/25/2018 09/22/2018 Active Ambien 10 mg tablet RxNorm: 370437 Tablet(s) TAKE ONE TABLET BY MOUTH AT BEDTIME 06/24/2018 09/21/2018 Active trazodone 50 mg tablet RxNorm: 083781 TAKE ONE TABLET BY MOUTH DAILY 04/25/2018 07/23/2018 Inactive Ambien 10 mg tablet RxNorm: 117995 Tablet(s) TAKE ONE TABLET BY MOUTH AT BEDTIME 03/23/2018 06/19/2018 Inactive terazosin 5 mg capsule RxNorm: 886242 TAKE ONE CAPSULE BY MOUTH DAILY 03/14/2018 09/09/2018 Active Ambien 10 mg tablet RxNorm: 834101 Tablet(s) TAKE ONE TABLET BY MOUTH AT BEDTIME 01/18/2018 03/17/2018 Inactive trazodone 50 mg tablet RxNorm: 479642 TAKE ONE TABLET BY MOUTH ONCE DAILY 01/10/2018 03/22/2018 Inactive trazodone 50 mg tablet RxNorm: 995541 Tablet(s) TAKE ONE TABLET BY MOUTH ONCE DAILY 01/10/2018 04/24/2018 Inactive Ambien 10 mg tablet RxNorm: 289792 Tablet(s) TAKE ONE TABLET BY MOUTH AT BEDTIME 10/22/2017 01/17/2018 Inactive trazodone 50 mg tablet RxNorm: 961559 TAKE ONE TABLET BY MOUTH ONCE DAILY 10/18/2017 01/09/2018 Inactive omeprazole 20 mg capsule,delayed release RxNorm: 909962 TAKE ONE CAPSULE BY MOUTH ONCE DAILY AT BEDTIME 08/27/2017 No Stop Date Active trazodone 50 mg tablet RxNorm: 425836 TAKE ONE TABLET BY MOUTH ONCE DAILY 08/18/2017 10/17/2017 Inactive Ambien 10 mg tablet RxNorm: 609349 Tablet(s) TAKE ONE TABLET BY MOUTH AT BEDTIME 08/18/2017 03/22/2018 Inactive paroxetine 20 mg tablet RxNorm: 8890737 TAKE ONE TABLET BY MOUTH ONCE DAILY 07/27/2017 08/11/2018 Inactive Ambien 10 mg tablet RxNorm: 423881 Tablet(s) TAKE ONE TABLET BY MOUTH AT BEDTIME 06/23/2017 03/22/2018 Inactive omeprazole 20 mg capsule,delayed release RxNorm: 278200 TAKE ONE CAPSULE BY MOUTH ONCE DAILY AT BEDTIME 04/23/20172017 Inactive trazodone 50 mg tablet RxNorm: 117776 TAKE ONE TABLET BY MOUTH ONCE DAILY 04/13/2017 08/10/2017 Inactive terazosin 5 mg capsule RxNorm: 935723 Capsule(s) TAKE ONE CAPSULE BY MOUTH DAILY 04/08/2017 03/03/2018 Inactive Ambien 10 mg tablet RxNorm: 101253 Tablet(s) TAKE ONE TABLET BY MOUTH AT BEDTIME 02/17/2017 03/22/2018 Inactive Tylenol-Codeine #3 300 mg-30 mg tablet RxNorm: 487265 1 Tablet(s) PO QID as needed 02/02/2017 03/03/2017 Inactive metoprolol succinate ER 50 mg tablet,extended release 24 hr RxNorm: 139228 TAKE ONE TABLET BY MOUTH ONCE DAILY 12/23/2016 02/02/2017 Inactive Zithromax Z-Ted 250 mg tablet RxNorm: 990508 1 Tablet(s) PO UD 11/26/2016 02/16/2017 Inactive trazodone 50 mg tablet RxNorm: 180209 TAKE ONE TABLET BY MOUTH ONCE DAILY 11/12/2016 03/11/2017 Inactive Ambien 10 mg tablet RxNorm: 275219 Tablet(s) TAKE ONE TABLET BY MOUTH AT BEDTIME 10/22/2016 02/15/2017 Inactive paroxetine 20 mg tablet RxNorm: 8532125 1 Tablet(s) PO daily TAKE ONE TABLET BY MOUTH DAILY 09/16/2016 06/12/2017 Inactive meloxicam 7.5 mg tablet RxNorm: 108417 1 Tablet(s) PO daily 11/14/2016 Inactive Protonix 40 mg tablet,delayed release RxNorm: 361076 1 Tablet(s) PO daily 09/16/2016 08/22/2017 Inactive sucralfate 1 gram tablet RxNorm: 318839 1 Tablet(s) PO TID 08/22/2017 Inactive Ambien 10 mg tablet RxNorm: 282562 Tablet(s) TAKE ONE TABLET BY MOUTH AT BEDTIME 08/24/2016 03/22/2018 Inactive trazodone 50 mg tablet RxNorm: 998678 Tablet(s) TAKE ONE TABLET BY MOUTH DAILY 07/29/2016 11/11/2016 Inactive Ambien 10 mg tablet RxNorm: 074935 TAKE ONE TABLET BY MOUTH AT BEDTIME 06/23/2016 03/22/2018 Inactive Ambien 10 mg tablet RxNorm: 533213 Tablet(s) TAKE ONE TABLET BY MOUTH EVERY NIGHT AT BEDTIME 06/22/2016 06/23/2016 Inactive Lasix 40 mg tablet RxNorm: 346604 1 Tablet(s) PO daily as needed for swelling 04/03/2016 09/15/2016 Inactive potassium chloride ER 20 mEq tablet,extended release RxNorm: 250602 1 Tablet(s) PO daily for swelling take with lasix as needed 04/03/2016 09/15/2016 Inactive Ambien 10 mg tablet RxNorm: 932562 Tablet(s) TAKE ONE TABLET BY MOUTH EVERY NIGHT AT BEDTIME 04/03/2016 03/22/2018 Inactive omeprazole 20 mg capsule,delayed release RxNorm: 106464 TAKE ONE CAPSULE BY MOUTH EVERY NIGHT AT BEDTIME 03/31/20162016 Inactive paroxetine 20 mg tablet RxNorm: 6183820 TAKE ONE TABLET BY MOUTH DAILY 03/31/2016 09/15/2016 Inactive trazodone 50 mg tablet RxNorm: 870542 TAKE ONE TABLET BY MOUTH DAILY 03/20/2016 07/28/2016 Inactive terazosin 5 mg capsule RxNorm: 763897 TAKE ONE CAPSULE BY MOUTH DAILY 03/06/2016 10/06/2016 Inactive Ambien 10 mg tablet RxNorm: 790819 Tablet(s) TAKE ONE TABLET BY MOUTH EVERY NIGHT AT BEDTIME 01/17/2016 04/02/2016 Inactive loratadine 10 mg tablet RxNorm: 943463 1 Tablet(s) PO daily 09/15/2016 Inactive mupirocin 2 % topical ointment RxNorm: 509717 1 Application TOP TID 11/18/2015 12/01/2015 Inactive metoprolol succinate ER 50 mg tablet,extended release 24 hr RxNorm: 378169 1 Tablet(s) PO daily 11/18/2015 11/11/2016 Inactive loratadine 10 mg tablet RxNorm: 491286 1 Tablet(s) PO daily 01/14/2016 Inactive Lasix 40 mg tablet RxNorm: 734632 1 Tablet(s) PO daily as needed for swelling 10/30/2015 11/28/2015 Inactive potassium chloride ER 20 mEq tablet,extended release RxNorm: 467864 1 Tablet(s) PO daily for swelling take with lasix as needed 10/30/2015 11/28/2015 Inactive Tylenol-Codeine #3 300 mg-30 mg tablet RxNorm: 086675 1 Tablet(s) PO QID as needed 10/25/2015 02/01/2017 Inactive Ambien 10 mg tablet RxNorm: 047952 Tablet(s) TAKE ONE TABLET BY MOUTH EVERY NIGHT AT BEDTIME 10/18/2015 03/22/2018 Inactive Diflucan 150 mg tablet RxNorm: 879214 1 Tablet(s) PO daily 02/201612/03/2015 Inactive Lasix 20 mg tablet RxNorm: 178721 1 Tablet(s) PO PRN fror swelling 09/27/2015 10/29/2015 Inactive potassium chloride ER 10 mEq capsule,extended release RxNorm: 082738 1 Capsule(s) PO PRN for swelling take with lasix 09/27/2015 10/29/2015 Inactive Bactrim DS 800 mg-160 mg tablet RxNorm: 560643 1 Tablet(s) PO BID 09/02/2015 09/11/2015 Inactive Bactrim DS 800 mg-160 mg tablet RxNorm: 221404 1 Tablet(s) PO BID 09/02/2015 09/01/2015 Inactive nystatin 100,000 unit/gram topical cream RxNorm: 259978 1 Gram(s) TOP TID 08/28/2015 09/26/2015 Inactive Diflucan 150 mg tablet RxNorm: 276242 1 Tablet(s) PO daily 09/201509/06/2015 Inactive betamethasone dipropionate 0.05 % topical ointment RxNorm: 705729 1 Application TOP TID to affected area 08/02/20152016 Inactive nystatin 100,000 unit/gram topical powder RxNorm: 155791 1 Gram(s) TOP QID 07/09/2015 08/01/2015 Inactive Ambien 10 mg tablet RxNorm: 634898 1 Tablet(s) PO QHS 201406/18/2015 Inactive Ambien 10 mg tablet RxNorm: 298853 TAKE ONE TABLET BY MOUTH EVERY NIGHT AT BEDTIME 06/19/2015 09/16/2015 Inactive Vitamin D2 50,000 unit capsule RxNorm: 223437 1 Capsule(s) PO QW 03/07/2015 03/06/2015 Inactive Vitamin D2 50,000 unit capsule RxNorm: 251439 1 Capsule(s) PO QW 03/07/2015 05/05/2015 Inactive terazosin 5 mg capsule RxNorm: 100427 1 Capsule(s) PO daily 06/201502/28/2016 Inactive [SAVINGS FOR NON-COVERED DRUGS -- BIN:[id number], PCN: [id number], Group: XXXXX, ID# [id number], Questions: . THIS IS NOT INSURANCE.] trazodone 50 mg tablet RxNorm: 095920 1 Tablet(s) PO daily 06/201502/28/2016 Inactive paroxetine 20 mg tablet RxNorm: 1041613 1 Tablet(s) PO daily 02/28/2016 Inactive Tylenol-Codeine #3 300 mg-30 mg tablet RxNorm: 903427 1 Tablet(s) PO QID as needed 03/06/2015 07/02/2015 Inactive amlodipine 10 mg tablet RxNorm: 468034 1 Tablet(s) PO daily 06/201511/17/2015 Inactive metoprolol succinate ER 25 mg tablet,extended release 24 hr RxNorm: 178841 1 Tablet(s) PO daily 03/06/2015 11/17/2015 Inactive omeprazole 20 mg capsule,delayed release RxNorm: 501910 1 Capsule(s) PO QHS 03/06/2015 02/28/2016 Inactive omeprazole 20 mg capsule,delayed release RxNorm: 985877 1 Capsule(s) PO QHS 01/31/2015 01/30/2015 Inactive omeprazole 20 mg capsule,delayed release RxNorm: 976790 1 Capsule(s) PO QHS 01/31/2015 01/30/2015 Inactive omeprazole 20 mg capsule,delayed release RxNorm: 984888 1 Capsule(s) PO QHS 01/31/2015 03/05/2015 Inactive Ambien 10 mg tablet RxNorm: 094693 1 Tablet(s) PO QHS 201404/21/2015 Inactive paroxetine 20 mg tablet RxNorm: 736839 1 Tablet(s) PO daily 08/201412/24/2014 Inactive Ambien 10 mg tablet RxNorm: 646122 1 Tablet(s) PO QHS 201412/24/2014 Inactive paroxetine 20 mg tablet RxNorm: 238467 1 Tablet(s) PO daily 08/201403/05/2015 Inactive terazosin 5 mg capsule RxNorm: 087401 1 Capsule(s) PO daily 07/201403/05/2015 Inactive [SAVINGS FOR NON-COVERED DRUGS -- BIN:[id number], PCN: ASPROD1, Group: XXXXX, ID# [id number], Questions: . THIS IS NOT INSURANCE.] terazosin 5 mg capsule RxNorm: 521076 1 Capsule(s) PO daily 07/201411/22/2014 Inactive Lasix 20 mg tablet RxNorm: 280611 1 Tablet(s) PO daily No Start Date Active K-Dur 10 mEq tablet,extended release RxNorm: 311122 1 Tablet(s) PO daily No Start Date Active hydrochlorothiazide 25 mg tablet RxNorm: 417921 1 Tablet(s) PO daily No Start Date Active Eliquis 5 mg tablet RxNorm: 8100781 1 Tablet(s) PO BID No Start Date Active Vitamin D3 2,000 unit tablet RxNorm: 055006 1 Tablet(s) PO daily No Start Date Active amiodarone 200 mg tablet RxNorm: 978978 1 Tablet(s) PO BID No Start Date Active Zetia 10 mg tablet RxNorm: 714683 1 Tablet(s) PO daily No Start Date Active Lipitor 80 mg tablet RxNorm: 744325 1/2 Tablet(s) PO daily No Start Date Active metoprolol succinate ER 25 mg tablet,extended release 24 hr RxNorm: 340089 1 Tablet(s) PO daily No Start Date 2014 Inactive Entresto 49 mg-51 mg tablet RxNorm: 7141914 1 Tablet(s) PO BID No Start Date 04/19/2018 Inactive sotalol 80 mg tablet RxNorm: 5846352 1 Tablet(s) PO BID No Start Date 04/19/2018 Inactive betamethasone dipropionate 0.05 % topical ointment RxNorm: 631988 1 Application TOP TID to affected area No Start Date 01/2016 Inactive trazodone 50 mg tablet RxNorm: 853096 1 Tablet(s) PO daily No Start Date 03/05/2015 Inactive potassium chloride ER 10 mEq capsule,extended release RxNorm: 741556 1 Capsule(s) PO PRN for swelling take with lasix No Start Date 09/26/2015 Inactive amlodipine 10 mg tablet RxNorm: 311356 1 Tablet(s) PO daily No Start Date 03/05/2015 Inactive isosorbide mononitrate ER 30 mg tablet,extended release 24 hr RxNorm: 504911 1 Tablet(s) PO daily No Start Date 2017 Inactive aspirin 81 mg tablet,delayed release RxNorm: 596954 1 Tablet(s) PO daily No Start Date 02/02/2017 Inactive Lasix 20 mg tablet RxNorm: 586707 1 Tablet(s) PO PRN fror swelling No Start Date 09/26/2015 Inactive lisinopril 5 mg tablet RxNorm: 321463 1 Tablet(s) PO daily No Start Date 07/31/2018 Inactive Crestor 40 mg tablet RxNorm: 612269 1 Tablet(s) PO daily No Start Date 09/15/2016 Inactive metoprolol succinate ER 100 mg tablet,extended release 24 hr RxNorm: 178440 1 Tablet(s) PO daily No Start Date [...] Item Item Code Result Date Comp Metabolic Wtz113 NA 140 mEq/L 08/01/2018 Comp Metabolic Jod028 K 4.2 mEq/L 08/01/2018 Comp Metabolic Fhb066 CL 102 mEq/L 08/01/2018 Comp Metabolic Img049 CO2 27.0 mEq/L 08/01/2018 Comp Metabolic Tnf361 ANION GAP 15 08/01/2018 Comp Metabolic Zaf160 GLUCOSE 107 mg/dL 08/01/2018 Comp Metabolic Hmo829 Creat 1.0 mg/dL 08/01/2018 Comp Metabolic Uvy678 eGFR 58 ml/min/1.73m2 08/01/2018 Comp Metabolic Ekq242 BUN 10 mg/dL 08/01/2018 Comp Metabolic Tmh822 B/C Ratio 10.0 Ratio 08/01/2018 Comp Metabolic Rzz691 CALCIUM 8.9 mg/dL 08/01/2018 Comp Metabolic Yvt261 ALK PHOS 68 U/L 08/01/2018 Comp Metabolic Ciz937 AST(SGOT) 18 U/L 08/01/2018 Comp Metabolic Fjn891 ALT(SGPT) 14 U/L 08/01/2018 Comp Metabolic Xwf989 BILI T 0.5 mg/dL 08/01/2018 Comp Metabolic Upe798 ALBUMIN 4.0 g/dL 08/01/2018 Comp Metabolic Yjh574 TPRO 6.3 g/dL 08/01/2018 Comp Metabolic Ogh742 GLOB 2.3 g/dL 08/01/2018 Comp Metabolic Bff949 A/G Ratio 1.7 Ratio 08/01/2018 Comp Metabolic Zho307 Osmo 279 mOsmo 08/01/2018 Tsh Ord6 TSH [...] 19.8 % 08/01/2018 Cbc With Differential Ord2 [place]% 9.8 % 08/01/2018 Cbc With Differential Ord2 [...] 0.79 K/ul 08/01/2018 Cbc With Differential Ord2 [place] ABS# 0.4 K/ul 08/01/2018 Cbc With Differential Ord2 Eos ABS# 0.1 K/ul 08/01/2018 Cbc With Differential Ord2 Baso ABS# 0.0 K/ul 08/01/2018 Lipid Ord30 CHOL 234 mg/dL 08/01/2018 Lipid Ord30 HDL 69.0 mg/dl 08/01/2018 Lipid Ord30 TRIG 57 mg/dL 08/01/2018 Lipid Ord30 LDL 154 mg/dL 08/01/2018 Lipid Ord30 C/HDL 3.4 Ratio 08/01/2018 Comp Metabolic Omx795 NA 137 mEq/L 09/30/2015 Comp Metabolic Qqb201 K 4.5 mEq/L 09/30/2015 Comp Metabolic Xxt837 CL 102 mEq/L 09/30/2015 Comp Metabolic Axq804 CO2 26.0 mEq/L 09/30/2015 Comp Metabolic Zuh074 ANION GAP 14 09/30/2015 Comp Metabolic Dtd807 GLUCOSE 89 mg/dL 09/30/2015 Comp Metabolic Kzz901 Creat 0.8 mg/dL 09/30/2015 Comp Metabolic Jfk863 eGFR 79 ml/min/1.73m2 09/30/2015 Comp Metabolic Vki458 BUN 14 mg/dL 09/30/2015 Comp Metabolic Leg131 B/C Ratio 18.2 Ratio 09/30/2015 Comp Metabolic Ogk998 CALCIUM 8.9 mg/dL 09/30/2015 Comp Metabolic Ygr510 ALK PHOS 65 U/L 09/30/2015 Comp Metabolic Bdc204 AST(SGOT) 26 U/L 09/30/2015 Comp Metabolic Acm059 ALT(SGPT) 18 U/L 09/30/2015 Comp Metabolic Azd143 BILI T 0.6 mg/dL 09/30/2015 Comp Metabolic Jqs158 ALBUMIN 3.8 g/dL 09/30/2015 Comp Metabolic Yjw544 TPRO 6.6 g/dL 09/30/2015 Comp Metabolic Jfq206 GLOB 2.8 g/dL 09/30/2015 Comp Metabolic Byy659 A/G Ratio 1.4 Ratio 09/30/2015 Comp Metabolic Lzs773 Osmo 274 mOsmo 09/30/2015 Cbc With Differential [...] 27.7 pg 09/30/2015 Cbc With Differential Ord2 [place]% 10.7 % 09/30/2015 Cbc With Differential Ord2 [...] 1.10 K/ul 09/30/2015 Cbc With Differential Ord2 [place] ABS# 0.6 K/ul 09/30/2015 Cbc With Differential Ord2 Eos ABS# 0.2 K/ul 09/30/2015 Cbc With Differential Ord2 Baso ABS# 0.0 K/ul 09/30/2015 Cbc With Differential Ord2 New Analyzer Notice Please note new ref ranges starting 08-07-2015 due to implemntation of new five part differential hematolgy analyzer. 09/30/2015 Tsh Ord6 hTSH II 1.05 uIU/mL 03/06/2015 Comp Metabolic Rpe496 NA 137 mEq/L 03/06/2015 Comp Metabolic Mhc737 K 4.3 mEq/L 03/06/2015 Comp Metabolic Xwk265 CL 104 mEq/L 03/06/2015 Comp Metabolic Acb355 CO2 28.0 mEq/L 03/06/2015 Comp Metabolic Hpz446 ANION GAP 9 03/06/2015 Comp Metabolic Vrz720 GLUCOSE 93 mg/dL 03/06/2015 Comp Metabolic Zyh302 Creat 0.8 mg/dL 03/06/2015 Comp Metabolic Pqy872 eGFR 81 ml/min/1.73m2 03/06/2015 Comp Metabolic Iwa862 BUN 12 mg/dL 03/06/2015 Comp Metabolic Pna650 B/C Ratio 16.0 Ratio 03/06/2015 Comp Metabolic Jco646 CALCIUM 8.9 mg/dL 03/06/2015 Comp Metabolic Byt694 ALK PHOS 56 U/L 03/06/2015 Comp Metabolic Muw528 AST(SGOT) 22 U/L 03/06/2015 Comp Metabolic Pxc640 ALT(SGPT) 15 U/L 03/06/2015 Comp Metabolic Lnz851 BILI T 0.4 mg/dL 03/06/2015 Comp Metabolic Wxd485 ALBUMIN 4.0 g/dL 03/06/2015 Comp Metabolic Dgs998 TPRO 6.5 g/dL 03/06/2015 Comp Metabolic Bwk631 GLOB 2.5 g/dL 03/06/2015 Comp Metabolic Stk142 A/G Ratio 1.6 Ratio 03/06/2015 Comp Metabolic Xfd492 Osmo 273 mOsmo 03/06/2015 Vitamin D 25 Oh Nqf5931 VITAMIN D, 25 HYDROXY 28.14 ng/mL Cbc [...] affect 03/06/2015 None Procedures Procedure Codes Date ADMIN INFLUENZA VIRUS VAC CPT-4: G0008 04/20/2018 FLU VACC PRSV FREE INC ANTIG Formatting Model/CDA Sections, Assigned to/Amparo Mims CPT-4: 18605Ztlgzvd 04/20/2018 PPPS, SUBSEQ VISIT CPT -4: G0439 02/09/2018 PPPS, SUBSEQ VISIT CPT -4: G0439 02/03/2017 ADMIN INFLUENZA VIRUS VAC CPT-4: G0008 04/08/2016 ADMIN PNEUMOCOCCAL VACCINE SNOMED CT: 67565016 CPT-4: G0009 04/08/2016 PNEUMOCOCCAL VACC [address]: 53542431 CPT-4: 29448 04/08/2016 FLU VACC PRSV FREE INC ANTIG CPT-4: 92068 04/08/2016 Vital Signs Date Vital 08/15/2018 Blood Pressure 1: 140/90 Code : 8480-6 BMI: 40.7 Code : 15047-0 Heart Rate 1 : 70 bpm Height: 5'7" SpO2: 93% Weight: 260 lbs 08/01/2018 Blood Pressure 1: 130/70 Code : 8480-6 BMI: 40.7 Code : 60995-6 Heart Rate 1 : 80 bpm Height: 5'7" SpO2: 93% Weight: 260 lbs 04/20/2018 Blood Pressure 1: 128/68 Code : 8480-6 BMI: 41.7 Code : 89226-7 Heart Rate 1 : 85 bpm Height: 5'7" SpO2: 94% Weight: 266 lbs 02/09/2018 Blood Pressure 1: 118/70 Code : 8480-6 BMI: 42.1 Code : 00001-5 Heart Rate 1 : 58 bpm Height: 5'7" SpO2: 94% Weight: 269 lbs 12/16/2017 Blood Pressure 1: 132/86 Code : 8480-6 BMI: 42.7 Code : 40937-5 Heart Rate 1 : 63 bpm Height: 5'7" SpO2: 94% Weight: 272 lbs 14 oz 08/23/2017 Blood Pressure 1: 150/82 Code : 8480-6 BMI: 42.0 Code : 38065-4 Heart Rate 1 : 66 bpm Height: 5'7" SpO2: 96% Weight: 268 lbs 02/03/2017 Blood Pressure 1: 138/72 Code : 8480-6 BMI: 41.2 Code : 91136-4 Heart Rate 1 : 96 bpm Height: 5'7" SpO2: 97% Weight: 263 lbs 02/02/2017 Blood Pressure 1: 140/90 Code : 8480-6 BMI: 41.2 Code : 07484-2 Heart Rate 1 : 103 bpm Height: 5'7" SpO2: 94% Weight: 263 lbs 11/26/2016 Blood Pressure 1: 152/88 Code : 8480-6 BMI: 41.0 Code : 99204-8 Heart Rate 1 : 71 bpm Height: 5'7" SpO2: 94% Temperature: 37.7 (C) / 99.8 (F) Weight: 262 lbs 10/07/2016 Blood Pressure 1: 148/82 Code : 8480-6 BMI: 41.7 Code : 48033-1 Heart Rate 1 : 58 bpm Height: 5'7" SpO2: 96% Weight: 266 lbs 09/16/2016 Blood Pressure 1: 122/70 Code : 8480-6 BMI: 42.0 Code : 28998-9 Heart Rate 1 : 65 bpm Height: 5'7" SpO2: 96% Weight: 268 lbs 09/07/2016 Blood Pressure 1: 154/60 Code : 8480-6 BMI: 42.3 Code : 23188-5 Heart Rate 1 : 101 bpm Height: 5'7" SpO2: 97% Weight: 270 lbs 04/08/2016 Blood Pressure 1: 128/70 Code : 8480-6 BMI: 41.4 Code : 55547-6 Heart Rate 1 : 62 bpm Height: 5'7" SpO2: 95% Weight: 264 lbs 8 oz 03/05/2016 Blood Pressure 1: 144/78 Code : 8480-6 Blood Pressure 1: 139/72 Code: 8480-6 BMI: 41.9 Code: 83646-5 Heart Rate 1: 71 bpm Height: 5'7" SpO2: 93% Weight: 267 lbs 8 oz 12/04/2015 Blood Pressure 1: 132/70 Code : 8480-6 BMI: 41.3 Code : 22192-4 Heart Rate 1 : 56 bpm Height: 5'7" SpO2: 96% Weight: 264 lbs 11/18/2015 Blood Pressure 1: 138/72 Code : 8480-6 BMI: 41.0 Code : 04629-6 Heart Rate 1 : 85 bpm Height: 5'7" SpO2: 93% Weight: 262 lbs 09/30/2015 Blood Pressure 1: 128/76 Code : 8480-6 BMI: 41.2 Code : 65999-4 Heart Rate 1 : 70 bpm Height: 5'7" SpO2: 93% Weight: 263 lbs 09/09/2015 Blood Pressure 1: 138/80 Code : 8480-6 BMI: 40.3 Code : 10782-1 Heart Rate 1 : 84 bpm Height: 5'7" SpO2: 95% Weight: 257 lbs 08/28/2015 Blood Pressure 1: 122/72 Code : 8480-6 BMI: 39.6 Code : 42939-7 Heart Rate 1 : 75 bpm Height: 5'7" SpO2: 96% Weight: 253 lbs 07/09/2015 Blood Pressure 1: 135/78 Code : 8480-6 Blood Pressure 1: 140/78 Code: 8480-6 BMI: 39.5 Code: 42513-4 Heart Rate 1: 62 bpm Height: 5'7" SpO2: 95% Weight: 252 lbs 03/06/2015 Blood Pressure 1: 142/88 Code : 8480-6 BMI: 39.3 Code : 83820-5 Heart Rate 1 : 65 bpm Height: [...] data Encounters Encounter Performer Location Codes Date ([id number]) [id number] EST. PATIENT, LEVEL III Diagnosis: Essential (primary) hypertension[ICD10: I10] Diagnosis: Low back pain[ICD10: M54.5] Alis Spring MD, [facility] CPT-4: 56373 08/15/2018 ([id number]) 03239 EST. PATIENT, LEVEL III Diagnosis: Essential (primary) hypertension[ICD10: I10] Diagnosis: Cough[ICD10: R05] Diagnosis: Low back pain[ICD10: M54.5] Alis Spring MD, [facility] CPT-4: 70123 08/01/[id number]) 01194 EST. PATIENT, LEVEL IV Diagnosis: Encounter for immunization[ICD10: Z23] Diagnosis: Essential (primary) hypertension[ICD10: I10] Diagnosis: Chronic atrial fibrillation[ICD10: I48.2] Diagnosis: Major depressive disorder, recurrent, mild[ICD10: F33.0] [facility] CPT-4: 39288 04/20/2018 ([id number]) [id number] EST. PATIENT, LEVEL IV Diagnosis: Essential (primary) hypertension[ICD10: I10] Diagnosis: Obstructive sleep apnea (adult) (pediatric)[ICD10: G47.33] Diagnosis: Chronic atrial fibrillation[ICD10: I48.2] Scarlett Spring MD, [facility] CPT-4: 32213 12/16/2017 ([id number]) 85509 EST. PATIENT, LEVEL IV Diagnosis: Essential (primary) hypertension[ICD10: I10] Diagnosis: Chronic atrial fibrillation[ICD10: I48.2] Scarlett Spring MD, [facility] CPT-4: 65569 08/23/2017 ([id number]) 61082 EST. PATIENT, LEVEL IV Diagnosis: Paroxysmal atrial fibrillation[ICD10: I48.0] Diagnosis: Essential (primary) hypertension[ICD10: I10] Scarlett Spring MD, [facility] CPT-4: 48948 02/02/2017 96021 EST. PATIENT, LEVEL III Diagnosis: Acute laryngopharyngitis[ICD10: J06.0] Diagnosis: Cough[ICD10: R05] Diagnosis: Pleurodynia[ICD10: R07.81] Diagnosis: Other dorsalgia[ICD10: M54.89] Kassandra Spring MD, [facility] CPT-4 : 68435 11/26/2016 ([id number]) 53818 EST. PATIENT, LEVEL IV Diagnosis: Essential (primary) hypertension[ICD10: I10] Diagnosis: Pain in left knee[ICD10: M25.562] Diagnosis: Low back pain[ICD10: M54.5] Diagnosis: Major depressive disorder, recurrent, moderate[ICD10: F33.1] Scarlett Spring MD, [facility] CPT-4: 60142 10/07/2016 ([id number]) 53489 EST. PATIENT, LEVEL IV Diagnosis: Essential (primary) hypertension[ICD10: I10] Diagnosis: Rash and other nonspecific skin eruption[ICD10: R21] Diagnosis: Major depressive disorder, recurrent, mild[ICD10: F33.0] Scarlett Spring MD, [facility] CPT-4: 88773 09/16/2016 28429 EST. PATIENT, LEVEL IV Diagnosis: Pain in left lower leg[ICD10: M79.662] Diagnosis: Pain in left knee[ICD10: M25.562] Kassandra Spring MD, [facility] CPT -4: 56875 09/07/2016 ([id number]) 01092 EST. PATIENT, LEVEL IV Diagnosis: Encounter for immunization[ICD10: Z23] Diagnosis: Essential (primary) hypertension[ICD10: I10] Diagnosis: Mixed hyperlipidemia[ICD10: E78.2] Scarlett Spring MD, [facility] CPT-4: 80056 04/08/2016 ([id number]) [id number] EST. PATIENT, LEVEL III Diagnosis: Essential (primary) hypertension[ICD10: I10] Diagnosis: Shortness of breath[ICD10: R06.02] Scarlett Spring MD [facility] CPT-4: 86363 03/05/2016 ([id number]) [id number] EST. PATIENT, LEVEL III Diagnosis: Chronic obstructive pulmonary disease, unspecified[ICD10: J44.9] Scarlett Spring MD [facility] CPT-4: 75752 12/04/2015 ([id number]) [id number] EST. PATIENT, LEVEL IV Diagnosis: Essential (primary) hypertension[ICD10: I10] Diagnosis: Allergic rhinitis due to pollen[ICD10: J30.1] Scarlett Spring MD [facility] CPT-4: 43654 11/18/2015 ([id number]) 27005 EST. PATIENT, LEVEL IV Diagnosis: Localized edema[ICD10: R60.0] Diagnosis: Dysuria[ICD10: R30.0] Diagnosis: Essential (primary) hypertension[ICD10: I10] Diagnosis: Nausea[ICD10: R11.0] Alis Spring MD, [facility] CPT-4: 44690 09/30/2015 ([id number]) 88634 EST. PATIENT, LEVEL II Diagnosis: Methicillin susceptible Staphylococcus aureus infection as the cause of diseases classified elsewhere[ICD10: B95.61] Diagnosis: Methicillin susceptible Staphylococcus aureus infection, unspecified site[ICD10: A49.01] Alis Spring MD, [facility] CPT-4: 79441 09/09/2015 ([id number]) 43446 EST. PATIENT, LEVEL III Diagnosis: Dermatophytosis, unspecified[ICD10: B35.9] Diagnosis: Rash and other nonspecific skin eruption[ICD10: R21] Scarlett Spring MD, [facility] CPT-4: 65609 08/28/2015 ([id number]) 74265 EST. PATIENT, LEVEL IV Diagnosis: Essential (primary) hypertension[ICD10: I10] Diagnosis: Gastro-esophageal reflux disease without esophagitis[ICD10: K21.9] Diagnosis: Other dorsalgia[ICD10: M54.89] [facility] CPT- 4: 52191 07/09/2015 ([id number]) OFFICE VISIT, NEW - LEVEL 4 Diagnosis: ESSENTIAL HYPERTENSION[ICD9: 401.9] Diagnosis: Osteoporosis[ICD9: 733.00] Diagnosis: Back pain[ICD9: 724.5] Diagnosis: Insomnia[ICD9: 780.52] Diagnosis: ESOPHAGEAL REFLUX[ICD9: 530.81] [facility] CPT- 4: 05817 03/06/2015 Plan of Care Planned Activity Notes Codes Status Date Visit Plan: Hypertension - not well controlled [...] improve 08/15/2018 Appointment: Alis Muhammad WPtel: [phone] (30 min) Complex 08/15/2018 Patient Education: Patient Medication Summary Completed 08/15/2018 Patient Education: Back Pain Completed 08/15/2018 Visit Plan: HTN-onofre induced cough-stop lisinopril -start losartan -monitor blood pressure and follow up in 2 weeks Low back pain-xray lumbar spine and refer for PT 08/01/2018 App[facility]ment: [phone] ([facility] min) Moderate 08/01/2018 Patient Education: Patient Medication Summary Completed 08/01/2018 Patient Education: Back Pain Completed 08/01/2018 Care Plan: X-RAY EXAM L-S SPINE 2/3 VWS LOINC : 18518-8 Pending 08/01/2018 Visit Plan: Hypertension - well [...] shot today. 04/20/2018 [facility]ment[phone] ([facility] min) Moderate 04/20/2018 Patient Education: [...] surrogate. 02/09/2018 Appointment: Kassandra Argueta WPtel: [phone] [facility] [facility] - Annual Wellness Visit 02/09/2018 [...] every night. 12/16/2017 Appointment: Scarlett Spring WPtel: [phone] [facility] (15 min) Moderate 12/16/2017 Patient Education: Patient [...] uncontrolled. 08/23/2017 Appointment: Scarlett Spring WPtel: [phone] [facility] (15 min) Moderate 08/23/2017 Patient Education: [...] cardiology 02/03/2017 Appointment: Kassandra Argueta WPtel: [facility] [place] [address] - Annual Wellness Visit 02/03/2017 Patient Education: [...] home. 02/02/2017 Appointment: Scarlett Spring WPtel: [facility] (15 min) Moderate 02/02/2017 Patient Education: [...] improve. 11/26/2016 Appointment: Kassandra Argueta WPtel: [phone] [facility] [place] (30 min) Complex 11/26/2016 Patient Education: Patient [...] pain symptoms. 10/07/2016 Appointment: Scarlett Spring WPtel: [address] [place], [place] [phone] [place] (15 min) Moderate 10/07/2016 Patient Education: Patient Medication Summary Completed 10/07/2016 Patient Education: Obesity Completed 10/07/2016 Patient Education: Hypertension Completed 10/07/2016 Care Plan: VASCULAR STUDY Pending 10/04/2016 Care Plan: X-RAY EXAM OF KNEE 3 [facility] : 03361-8 Pending 10/04/2016 Visit Plan: Hypertension - well [...] for paroxetine 09/16/2016 Appointment: Scarlett Spring WPtel: [address] [place], [place] [id number] [place] (15 min) Moderate 09/16/2016 Patient Education: [...] improve. 09/07/2016 Appointment: Kassandra Argueta WPtel: [facility] [place] (10 min) Simple 09/07/2016 Patient Education: [...] order 04/08/2016 Appointment: Scarlett Spring WPtel[facility] ([facility] min) Moderate 04/08/2016 Patient Education: [...] days. 03/05/2016 Appointment: [phone] (15 min) Moderate 03/05/2016 Patient Education: Patient Medication Summary Completed 03/05/2016 Visit Plan: COPD - chronic problem for this patient. We have reviewed chronic treatment strategy, symptom control, and plans for acute exacerbations. No changes today to the current treatment plan as the patient is stable, monitor for acute changes. anoro samples given to the patient 12/04/2015 Appointment: Scarlett Spring WPtel: [facility] [address] (15 min) Moderate 12/04/2015 Patient Education: Patient [...] allergy spray. 11/18/2015 Appointment: Scarlett Spring WPtel: [facility] [address] (15 min) Moderate 11/18/2015 Patient Education: Patient Medication Summary Completed 11/18/2015 Patient Education: Obesity Completed 11/18/2015 Patient Education: Hypertension Completed 11/18/2015 Appointment: Scarlett Spring WPtel: [facility] (15 min) Moderate 11/07/2015 Visit [...] culture report. 08/28/2015 Appointment: Scarlett Spring WPtel: [phone] [facility] (15 min) Moderate 08/28/2015 Patient Education: Patient Medication Summary Completed 08/28/2015 Care Plan: Ariela SAMUELMAKENNA RTS Cultured from groin Pending 08/28/2015 Visit [...] improving. 07/09/2015 Appointment: Scarlett Spring WPtel: [phone] [facility] (15 min) Moderate 07/09/2015 Patient Education: [...] not improving. 03/06/2015 Appointment: Scarlett Spring WPtel[facility] [place] [facility] New Patient 03/06/2015 Patient [...] RESOLVED . MSSA of groin and under [id number] bactrim and call if rash does not [...]
--- OUTSIDE RECORDS SUMMARY | 2018-10-11 10:10 | XMS REPORT | CCD ---
Author Author Scarlett Spring Organization Scarlett Spring MD, [facility] Address [address] [place] [address] Phone Care Team Providers Care Palliative Care Coordinator Name Role Phone PP Unavailable CCM Unavailable Summary Purpose Interface Exchange Insurance Providers Payer name Policy type / Coverage type Covered alliance party ID Effective Begin Date Effective End Date WPS Medicare Part B Medicare Part B [id number] Unknown [employer] Medicare Part B [id number] Unknown Family history Mother Diagnosis Age At Onset Hypertension Unknown Heart Attack Unknown Brother Diagnosis Age At Onset Heart disease Unknown Runs in the family Diagnosis Age At Onset Heart disease Unknown Daughter Diagnosis Age At Onset Heart Attack Unknown Hyperlipidemia Unknown Hypertension Unknown Social History Social History Element Codes Description Effective Dates Number of children Unknown 2 daughter lives in [place], son - does not have contact [address]: 6377052 Quit over 10 years ago 1990 - previously smoked 2ppd x 25 years. 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 Allergies, Adverse Reactions, Alerts Substance Reaction [...] Fill Instructions paroxetine 20 mg tablet RxNorm: 3574076 TAKE ONE TABLET BY MOUTH DAILY 08/12/2018 08/06/2019 Active losartan 25 mg tablet RxNorm: 085812 1 Tablet(s) PO daily 201809/29/2018 Active losartan 25 mg tablet RxNorm: 075589 1 Tablet(s) PO daily 201809/29/2018 Active trazodone 50 mg tablet RxNorm: 022393 TAKE ONE TABLET BY MOUTH DAILY 07/25/2018 09/22/2018 Active Ambien 10 mg tablet RxNorm: 966231 Tablet(s) TAKE ONE TABLET BY MOUTH AT BEDTIME 06/24/2018 09/21/2018 Active trazodone 50 mg tablet RxNorm: 982631 TAKE ONE TABLET BY MOUTH DAILY 04/25/2018 07/23/2018 Inactive Ambien 10 mg tablet RxNorm: 884110 Tablet(s) TAKE ONE TABLET BY MOUTH AT BEDTIME 03/23/2018 06/19/2018 Inactive terazosin 5 mg capsule RxNorm: 451786 TAKE ONE CAPSULE BY MOUTH DAILY 03/14/2018 09/09/2018 Active Ambien 10 mg tablet RxNorm: 549284 Tablet(s) TAKE ONE TABLET BY MOUTH AT BEDTIME 01/18/2018 03/17/2018 Inactive trazodone 50 mg tablet RxNorm: 930875 TAKE ONE TABLET BY MOUTH ONCE DAILY 01/10/2018 03/22/2018 Inactive trazodone 50 mg tablet RxNorm: 832533 Tablet(s) TAKE ONE TABLET BY MOUTH ONCE DAILY 01/10/2018 04/24/2018 Inactive Ambien 10 mg tablet RxNorm: 464195 Tablet(s) TAKE ONE TABLET BY MOUTH AT BEDTIME 10/22/2017 01/17/2018 Inactive trazodone 50 mg tablet RxNorm: 984586 TAKE ONE TABLET BY MOUTH ONCE DAILY 10/18/2017 01/09/2018 Inactive omeprazole 20 mg capsule,delayed release RxNorm: 166482 TAKE ONE CAPSULE BY MOUTH ONCE DAILY AT BEDTIME 08/27/2017 No Stop Date Active trazodone 50 mg tablet RxNorm: 887277 TAKE ONE TABLET BY MOUTH ONCE DAILY 08/18/2017 10/17/2017 Inactive Ambien 10 mg tablet RxNorm: 413287 Tablet(s) TAKE ONE TABLET BY MOUTH AT BEDTIME 08/18/2017 03/22/2018 Inactive paroxetine 20 mg tablet RxNorm: 5212318 TAKE ONE TABLET BY MOUTH ONCE DAILY 07/27/2017 08/11/2018 Inactive Ambien 10 mg tablet RxNorm: 831625 Tablet(s) TAKE ONE TABLET BY MOUTH AT BEDTIME 06/23/2017 03/22/2018 Inactive omeprazole 20 mg capsule,delayed release RxNorm: 510297 TAKE ONE CAPSULE BY MOUTH ONCE DAILY AT BEDTIME 04/23/20172017 Inactive trazodone 50 mg tablet RxNorm: 258717 TAKE ONE TABLET BY MOUTH ONCE DAILY 04/13/2017 08/10/2017 Inactive terazosin 5 mg capsule RxNorm: 119678 Capsule(s) TAKE ONE CAPSULE BY MOUTH DAILY 04/08/2017 03/03/2018 Inactive Ambien 10 mg tablet RxNorm: 988435 Tablet(s) TAKE ONE TABLET BY MOUTH AT BEDTIME 02/17/2017 03/22/2018 Inactive Tylenol-Codeine #3 300 mg-30 mg tablet RxNorm: 243893 1 Tablet(s) PO QID as needed 02/02/2017 03/03/2017 Inactive metoprolol succinate ER 50 mg tablet,extended release 24 hr RxNorm: 471932 TAKE ONE TABLET BY MOUTH ONCE DAILY 12/23/2016 02/02/2017 Inactive Zithromax Z-Ted 250 mg tablet RxNorm: 196378 1 Tablet(s) PO UD 11/26/2016 02/16/2017 Inactive trazodone 50 mg tablet RxNorm: 308467 TAKE ONE TABLET BY MOUTH ONCE DAILY 11/12/2016 03/11/2017 Inactive Ambien 10 mg tablet RxNorm: 730771 Tablet(s) TAKE ONE TABLET BY MOUTH AT BEDTIME 10/22/2016 02/15/2017 Inactive paroxetine 20 mg tablet RxNorm: 3339833 1 Tablet(s) PO daily TAKE ONE TABLET BY MOUTH DAILY 09/16/2016 06/12/2017 Inactive meloxicam 7.5 mg tablet RxNorm: 585118 1 Tablet(s) PO daily 11/14/2016 Inactive Protonix 40 mg tablet,delayed release RxNorm: 938072 1 Tablet(s) PO daily 09/16/2016 08/22/2017 Inactive sucralfate 1 gram tablet RxNorm: 924289 1 Tablet(s) PO TID 08/22/2017 Inactive Ambien 10 mg tablet RxNorm: 598686 Tablet(s) TAKE ONE TABLET BY MOUTH AT BEDTIME 08/24/2016 03/22/2018 Inactive trazodone 50 mg tablet RxNorm: 388003 Tablet(s) TAKE ONE TABLET BY MOUTH DAILY 07/29/2016 11/11/2016 Inactive Ambien 10 mg tablet RxNorm: 883831 TAKE ONE TABLET BY MOUTH AT BEDTIME 06/23/2016 03/22/2018 Inactive Ambien 10 mg tablet RxNorm: 466199 Tablet(s) TAKE ONE TABLET BY MOUTH EVERY NIGHT AT BEDTIME 06/22/2016 06/23/2016 Inactive Lasix 40 mg tablet RxNorm: 910617 1 Tablet(s) PO daily as needed for swelling 04/03/2016 09/15/2016 Inactive potassium chloride ER 20 mEq tablet,extended release RxNorm: 707378 1 Tablet(s) PO daily for swelling take with lasix as needed 04/03/2016 09/15/2016 Inactive Ambien 10 mg tablet RxNorm: 191421 Tablet(s) TAKE ONE TABLET BY MOUTH EVERY NIGHT AT BEDTIME 04/03/2016 03/22/2018 Inactive omeprazole 20 mg capsule,delayed release RxNorm: 069635 TAKE ONE CAPSULE BY MOUTH EVERY NIGHT AT BEDTIME 03/31/20162016 Inactive paroxetine 20 mg tablet RxNorm: 6559646 TAKE ONE TABLET BY MOUTH DAILY 03/31/2016 09/15/2016 Inactive trazodone 50 mg tablet RxNorm: 615838 TAKE ONE TABLET BY MOUTH DAILY 03/20/2016 07/28/2016 Inactive terazosin 5 mg capsule RxNorm: 496911 TAKE ONE CAPSULE BY MOUTH DAILY 03/06/2016 10/06/2016 Inactive Ambien 10 mg tablet RxNorm: 338910 Tablet(s) TAKE ONE TABLET BY MOUTH EVERY NIGHT AT BEDTIME 01/17/2016 04/02/2016 Inactive loratadine 10 mg tablet RxNorm: 105983 1 Tablet(s) PO daily 09/15/2016 Inactive mupirocin 2 % topical ointment RxNorm: 623172 1 Application TOP TID 11/18/2015 12/01/2015 Inactive metoprolol succinate ER 50 mg tablet,extended release 24 hr RxNorm: 285649 1 Tablet(s) PO daily 11/18/2015 11/11/2016 Inactive loratadine 10 mg tablet RxNorm: 467411 1 Tablet(s) PO daily 01/14/2016 Inactive Lasix 40 mg tablet RxNorm: 695187 1 Tablet(s) PO daily as needed for swelling 10/30/2015 11/28/2015 Inactive potassium chloride ER 20 mEq tablet,extended release RxNorm: 762916 1 Tablet(s) PO daily for swelling take with lasix as needed 10/30/2015 11/28/2015 Inactive Tylenol-Codeine #3 300 mg-30 mg tablet RxNorm: 381398 1 Tablet(s) PO QID as needed 10/25/2015 02/01/2017 Inactive Ambien 10 mg tablet RxNorm: 345160 Tablet(s) TAKE ONE TABLET BY MOUTH EVERY NIGHT AT BEDTIME 10/18/2015 03/22/2018 Inactive Diflucan 150 mg tablet RxNorm: 314731 1 Tablet(s) PO daily 02/201612/03/2015 Inactive Lasix 20 mg tablet RxNorm: 801932 1 Tablet(s) PO PRN fror swelling 09/27/2015 10/29/2015 Inactive potassium chloride ER 10 mEq capsule,extended release RxNorm: 385949 1 Capsule(s) PO PRN for swelling take with lasix 09/27/2015 10/29/2015 Inactive Bactrim DS 800 mg-160 mg tablet RxNorm: 455948 1 Tablet(s) PO BID 09/02/2015 09/11/2015 Inactive Bactrim DS 800 mg-160 mg tablet RxNorm: 955382 1 Tablet(s) PO BID 09/02/2015 09/01/2015 Inactive nystatin 100,000 unit/gram topical cream RxNorm: 791150 1 Gram(s) TOP TID 08/28/2015 09/26/2015 Inactive Diflucan 150 mg tablet RxNorm: 791196 1 Tablet(s) PO daily 09/201509/06/2015 Inactive betamethasone dipropionate 0.05 % topical ointment RxNorm: 856803 1 Application TOP TID to affected area 08/02/20152016 Inactive nystatin 100,000 unit/gram topical powder RxNorm: 873654 1 Gram(s) TOP QID 07/09/2015 08/01/2015 Inactive Ambien 10 mg tablet RxNorm: 346599 1 Tablet(s) PO QHS 201406/18/2015 Inactive Ambien 10 mg tablet RxNorm: 248057 TAKE ONE TABLET BY MOUTH EVERY NIGHT AT BEDTIME 06/19/2015 09/16/2015 Inactive Vitamin D2 50,000 unit capsule RxNorm: 954230 1 Capsule(s) PO QW 03/07/2015 03/06/2015 Inactive Vitamin D2 50,000 unit capsule RxNorm: 831025 1 Capsule(s) PO QW 03/07/2015 05/05/2015 Inactive terazosin 5 mg capsule RxNorm: 282221 1 Capsule(s) PO daily 06/201502/28/2016 Inactive [SAVINGS FOR NON-COVERED DRUGS -- BIN:[id number], PCN: [id number], Group: XXXXX, ID# [id number], Questions: . THIS IS NOT INSURANCE.] trazodone 50 mg tablet RxNorm: 609646 1 Tablet(s) PO daily 06/201502/28/2016 Inactive paroxetine 20 mg tablet RxNorm: 2343532 1 Tablet(s) PO daily 02/28/2016 Inactive Tylenol-Codeine #3 300 mg-30 mg tablet RxNorm: 690619 1 Tablet(s) PO QID as needed 03/06/2015 07/02/2015 Inactive amlodipine 10 mg tablet RxNorm: 543135 1 Tablet(s) PO daily 06/201511/17/2015 Inactive metoprolol succinate ER 25 mg tablet,extended release 24 hr RxNorm: 778167 1 Tablet(s) PO daily 03/06/2015 11/17/2015 Inactive omeprazole 20 mg capsule,delayed release RxNorm: 983154 1 Capsule(s) PO QHS 03/06/2015 02/28/2016 Inactive omeprazole 20 mg capsule,delayed release RxNorm: 527873 1 Capsule(s) PO QHS 01/31/2015 01/30/2015 Inactive omeprazole 20 mg capsule,delayed release RxNorm: 283931 1 Capsule(s) PO QHS 01/31/2015 01/30/2015 Inactive omeprazole 20 mg capsule,delayed release RxNorm: 071753 1 Capsule(s) PO QHS 01/31/2015 03/05/2015 Inactive Ambien 10 mg tablet RxNorm: 451165 1 Tablet(s) PO QHS 201404/21/2015 Inactive paroxetine 20 mg tablet RxNorm: 140193 1 Tablet(s) PO daily 08/201412/24/2014 Inactive Ambien 10 mg tablet RxNorm: 015270 1 Tablet(s) PO QHS 201412/24/2014 Inactive paroxetine 20 mg tablet RxNorm: 132537 1 Tablet(s) PO daily 08/201403/05/2015 Inactive terazosin 5 mg capsule RxNorm: 028134 1 Capsule(s) PO daily 07/201403/05/2015 Inactive [SAVINGS FOR NON-COVERED DRUGS -- BIN:[id number], PCN: ASPROD1, Group: XXXXX, ID# [id number], Questions: . THIS IS NOT INSURANCE.] terazosin 5 mg capsule RxNorm: 797238 1 Capsule(s) PO daily 07/201411/22/2014 Inactive Lasix 20 mg tablet RxNorm: 672092 1 Tablet(s) PO daily No Start Date Active K-Dur 10 mEq tablet,extended release RxNorm: 720731 1 Tablet(s) PO daily No Start Date Active hydrochlorothiazide 25 mg tablet RxNorm: 039549 1 Tablet(s) PO daily No Start Date Active Eliquis 5 mg tablet RxNorm: 6795439 1 Tablet(s) PO BID No Start Date Active Vitamin D3 2,000 unit tablet RxNorm: 282844 1 Tablet(s) PO daily No Start Date Active amiodarone 200 mg tablet RxNorm: 786513 1 Tablet(s) PO BID No Start Date Active Zetia 10 mg tablet RxNorm: 567292 1 Tablet(s) PO daily No Start Date Active Lipitor 80 mg tablet RxNorm: 584900 1/2 Tablet(s) PO daily No Start Date Active metoprolol succinate ER 25 mg tablet,extended release 24 hr RxNorm: 053293 1 Tablet(s) PO daily No Start Date 2014 Inactive Entresto 49 mg-51 mg tablet RxNorm: 5366089 1 Tablet(s) PO BID No Start Date 04/19/2018 Inactive sotalol 80 mg tablet RxNorm: 2706298 1 Tablet(s) PO BID No Start Date 04/19/2018 Inactive betamethasone dipropionate 0.05 % topical ointment RxNorm: 610906 1 Application TOP TID to affected area No Start Date 01/2016 Inactive trazodone 50 mg tablet RxNorm: 502208 1 Tablet(s) PO daily No Start Date 03/05/2015 Inactive potassium chloride ER 10 mEq capsule,extended release RxNorm: 563643 1 Capsule(s) PO PRN for swelling take with lasix No Start Date 09/26/2015 Inactive amlodipine 10 mg tablet RxNorm: 321744 1 Tablet(s) PO daily No Start Date 03/05/2015 Inactive isosorbide mononitrate ER 30 mg tablet,extended release 24 hr RxNorm: 569703 1 Tablet(s) PO daily No Start Date 2017 Inactive aspirin 81 mg tablet,delayed release RxNorm: 638968 1 Tablet(s) PO daily No Start Date 02/02/2017 Inactive Lasix 20 mg tablet RxNorm: 042829 1 Tablet(s) PO PRN fror swelling No Start Date 09/26/2015 Inactive lisinopril 5 mg tablet RxNorm: 400791 1 Tablet(s) PO daily No Start Date 07/31/2018 Inactive Crestor 40 mg tablet RxNorm: 334117 1 Tablet(s) PO daily No Start Date 09/15/2016 Inactive metoprolol succinate ER 100 mg tablet,extended release 24 hr RxNorm: 304234 1 Tablet(s) PO daily No Start Date [...] Item Item Code Result Date Comp Metabolic Mqf671 NA 140 mEq/L 08/01/2018 Comp Metabolic Gnl648 K 4.2 mEq/L 08/01/2018 Comp Metabolic Mgi250 CL 102 mEq/L 08/01/2018 Comp Metabolic Exm314 CO2 27.0 mEq/L 08/01/2018 Comp Metabolic Ttn139 ANION GAP 15 08/01/2018 Comp Metabolic Pta646 GLUCOSE 107 mg/dL 08/01/2018 Comp Metabolic Owi355 Creat 1.0 mg/dL 08/01/2018 Comp Metabolic Zgn810 eGFR 58 ml/min/1.73m2 08/01/2018 Comp Metabolic Hdm327 BUN 10 mg/dL 08/01/2018 Comp Metabolic Gxd062 B/C Ratio 10.0 Ratio 08/01/2018 Comp Metabolic Jnl829 CALCIUM 8.9 mg/dL 08/01/2018 Comp Metabolic Roj066 ALK PHOS 68 U/L 08/01/2018 Comp Metabolic Eml556 AST(SGOT) 18 U/L 08/01/2018 Comp Metabolic Psn901 ALT(SGPT) 14 U/L 08/01/2018 Comp Metabolic Fwu778 BILI T 0.5 mg/dL 08/01/2018 Comp Metabolic Rzc600 ALBUMIN 4.0 g/dL 08/01/2018 Comp Metabolic Uhh499 TPRO 6.3 g/dL 08/01/2018 Comp Metabolic Gec320 GLOB 2.3 g/dL 08/01/2018 Comp Metabolic Lap465 A/G Ratio 1.7 Ratio 08/01/2018 Comp Metabolic Csz625 Osmo 279 mOsmo 08/01/2018 Tsh Ord6 TSH [...] 27.3 pg 08/01/2018 Cbc With Differential Ord2 Adair% 9.8 % 08/01/2018 Cbc With Differential Ord2 [...] 0.79 K/ul 08/01/2018 Cbc With Differential Ord2 Adair ABS# 0.4 K/ul 08/01/2018 Cbc With Differential Ord2 Eos ABS# 0.1 K/ul 08/01/2018 Cbc With Differential Ord2 Baso ABS# 0.0 K/ul 08/01/2018 Lipid Ord30 CHOL 234 mg/dL 08/01/2018 Lipid Ord30 HDL 69.0 mg/dl 08/01/2018 Lipid Ord30 TRIG 57 mg/dL 08/01/2018 Lipid Ord30 LDL 154 mg/dL 08/01/2018 Lipid Ord30 C/HDL 3.4 Ratio 08/01/2018 Comp Metabolic Ull863 NA 137 mEq/L 09/30/2015 Comp Metabolic Wxq540 K 4.5 mEq/L 09/30/2015 Comp Metabolic Ivk222 CL 102 mEq/L 09/30/2015 Comp Metabolic Qtc527 CO2 26.0 mEq/L 09/30/2015 Comp Metabolic Iva514 ANION GAP 14 09/30/2015 Comp Metabolic Fcs450 GLUCOSE 89 mg/dL 09/30/2015 Comp Metabolic Idt563 Creat 0.8 mg/dL 09/30/2015 Comp Metabolic Kkn362 eGFR 79 ml/min/1.73m2 09/30/2015 Comp Metabolic Vbd480 BUN 14 mg/dL 09/30/2015 Comp Metabolic Kso002 B/C Ratio 18.2 Ratio 09/30/2015 Comp Metabolic Cnd422 CALCIUM 8.9 mg/dL 09/30/2015 Comp Metabolic Fwx361 ALK PHOS 65 U/L 09/30/2015 Comp Metabolic Uar364 AST(SGOT) 26 U/L 09/30/2015 Comp Metabolic Ncx598 ALT(SGPT) 18 U/L 09/30/2015 Comp Metabolic Kps872 BILI T 0.6 mg/dL 09/30/2015 Comp Metabolic Kpt756 ALBUMIN 3.8 g/dL 09/30/2015 Comp Metabolic Zqn602 TPRO 6.6 g/dL 09/30/2015 Comp Metabolic Tta838 GLOB 2.8 g/dL 09/30/2015 Comp Metabolic Ojw976 A/G Ratio 1.4 Ratio 09/30/2015 Comp Metabolic Qfy168 Osmo 274 mOsmo 09/30/2015 Cbc With Differential [...] 27.7 pg 09/30/2015 Cbc With Differential Ord2 Adair% 10.7 % 09/30/2015 Cbc With Differential Ord2 [...] 1.10 K/ul 09/30/2015 Cbc With Differential Ord2 Adair ABS# 0.6 K/ul 09/30/2015 Cbc With Differential Ord2 Eos ABS# 0.2 K/ul 09/30/2015 Cbc With Differential Ord2 Baso ABS# 0.0 K/ul 09/30/2015 Cbc With Differential Ord2 New Analyzer Notice Please note new ref ranges starting 08-07-2015 due to implemntation of new five part differential hematolgy analyzer. 09/30/2015 Tsh Ord6 hTSH II 1.05 uIU/mL 03/06/2015 Comp Metabolic Pzr110 NA 137 mEq/L 03/06/2015 Comp Metabolic Fyb734 K 4.3 mEq/L 03/06/2015 Comp Metabolic Lqn104 CL 104 mEq/L 03/06/2015 Comp Metabolic Daj369 CO2 28.0 mEq/L 03/06/2015 Comp Metabolic Xth118 ANION GAP 9 03/06/2015 Comp Metabolic Ipi974 GLUCOSE 93 mg/dL 03/06/2015 Comp Metabolic Vbc087 Creat 0.8 mg/dL 03/06/2015 Comp Metabolic Hmd516 eGFR 81 ml/min/1.73m2 03/06/2015 Comp Metabolic Wom724 BUN 12 mg/dL 03/06/2015 Comp Metabolic Oit428 B/C Ratio 16.0 Ratio 03/06/2015 Comp Metabolic Zws963 CALCIUM 8.9 mg/dL 03/06/2015 Comp Metabolic Xkr981 ALK PHOS 56 U/L 03/06/2015 Comp Metabolic Knw016 AST(SGOT) 22 U/L 03/06/2015 Comp Metabolic Orn024 ALT(SGPT) 15 U/L 03/06/2015 Comp Metabolic Egb922 BILI T 0.4 mg/dL 03/06/2015 Comp Metabolic Kkr989 ALBUMIN 4.0 g/dL 03/06/2015 Comp Metabolic Vhy891 TPRO 6.5 g/dL 03/06/2015 Comp Metabolic Hmk290 GLOB 2.5 g/dL 03/06/2015 Comp Metabolic Viu469 A/G Ratio 1.6 Ratio 03/06/2015 Comp Metabolic Cat185 Osmo 273 mOsmo 03/06/2015 Vitamin D 25 Oh Xhg9595 VITAMIN D, 25 HYDROXY 28.14 ng/mL Cbc [...] General 1995 Ears/Nose/Throat lips/teeth/gingiva Overall: benign lips 08/15/2018 None [...] masses 04/20/2018 None Full Exam - General 1994 [...] Formatting Model/CDA Sections, Assigned to/Amparo Mims CPT-4: [id number] 04/20/2018 PPPS, SUBSEQ VISIT CPT -4: G0439 02/09/2018 PPPS, SUBSEQ VISIT CPT -4: G0439 02/03/2017 ADMIN INFLUENZA VIRUS VAC CPT-4: G0008 04/08/2016 ADMIN PNEUMOCOCCAL VACCINE SNOMED CT: 62097583 CPT-4: G0009 04/08/2016 PNEUMOCOCCAL VACC [address]: 41572138 CPT-4: 75714 04/08/2016 FLU VACC PRSV FREE INC ANTIG CPT-4: 63286 04/08/2016 Vital Signs Date Vital 08/15/2018 Blood Pressure 1: 140/90 Code : 8480-6 BMI: 40.7 Code : 04766-6 Heart Rate 1 : 70 bpm Height: 5'7" SpO2: 93% Weight: 260 lbs 08/01/2018 Blood Pressure 1: 130/70 Code : 8480-6 BMI: 40.7 Code : 58353-7 Heart Rate 1 : 80 bpm Height: 5'7" SpO2: 93% Weight: 260 lbs 04/20/2018 Blood Pressure 1: 128/68 Code : 8480-6 BMI: 41.7 Code : 03863-5 Heart Rate 1 : 85 bpm Height: 5'7" SpO2: 94% Weight: 266 lbs 02/09/2018 Blood Pressure 1: 118/70 Code : 8480-6 BMI: 42.1 Code : 29624-9 Heart Rate 1 : 58 bpm Height: 5'7" SpO2: 94% Weight: 269 lbs 12/16/2017 Blood Pressure 1: 132/86 Code : 8480-6 BMI: 42.7 Code : 11149-5 Heart Rate 1 : 63 bpm Height: 5'7" SpO2: 94% Weight: 272 lbs 14 oz 08/23/2017 Blood Pressure 1: 150/82 Code : 8480-6 BMI: 42.0 Code : 22186-6 Heart Rate 1 : 66 bpm Height: 5'7" SpO2: 96% Weight: 268 lbs 02/03/2017 Blood Pressure 1: 138/72 Code : 8480-6 BMI: 41.2 Code : 00034-2 Heart Rate 1 : 96 bpm Height: 5'7" SpO2: 97% Weight: 263 lbs 02/02/2017 Blood Pressure 1: 140/90 Code : 8480-6 BMI: 41.2 Code : 07861-0 Heart Rate 1 : 103 bpm Height: 5'7" SpO2: 94% Weight: 263 lbs 11/26/2016 Blood Pressure 1: 152/88 Code : 8480-6 BMI: 41.0 Code : 28854-6 Heart Rate 1 : 71 bpm Height: 5'7" SpO2: 94% Temperature: 37.7 (C) / 99.8 (F) Weight: 262 lbs 10/07/2016 Blood Pressure 1: 148/82 Code : 8480-6 BMI: 41.7 Code : 77392-7 Heart Rate 1 : 58 bpm Height: 5'7" SpO2: 96% Weight: 266 lbs 09/16/2016 Blood Pressure 1: 122/70 Code : 8480-6 BMI: 42.0 Code : 85931-3 Heart Rate 1 : 65 bpm Height: 5'7" SpO2: 96% Weight: 268 lbs 09/07/2016 Blood Pressure 1: 154/60 Code : 8480-6 BMI: 42.3 Code : 33197-8 Heart Rate 1 : 101 bpm Height: 5'7" SpO2: 97% Weight: 270 lbs 04/08/2016 Blood Pressure 1: 128/70 Code : 8480-6 BMI: 41.4 Code : 75935-3 Heart Rate 1 : 62 bpm Height: 5'7" SpO2: 95% Weight: 264 lbs 8 oz 03/05/2016 Blood Pressure 1: 144/78 Code : 8480-6 Blood Pressure 1: 139/72 Code: 8480-6 BMI: 41.9 Code: 19731-2 Heart Rate 1: 71 bpm Height: 5'7" SpO2: 93% Weight: 267 lbs 8 oz 12/04/2015 Blood Pressure 1: 132/70 Code : 8480-6 BMI: 41.3 Code : 00725-4 Heart Rate 1 : 56 bpm Height: 5'7" SpO2: 96% Weight: 264 lbs 11/18/2015 Blood Pressure 1: 138/72 Code : 8480-6 BMI: 41.0 Code : 74629-9 Heart Rate 1 : 85 bpm Height: 5'7" SpO2: 93% Weight: 262 lbs 09/30/2015 Blood Pressure 1: 128/76 Code : 8480-6 BMI: 41.2 Code : 27725-2 Heart Rate 1 : 70 bpm Height: 5'7" SpO2: 93% Weight: 263 lbs 09/09/2015 Blood Pressure 1: 138/80 Code : 8480-6 BMI: 40.3 Code : 53619-4 Heart Rate 1 : 84 bpm Height: 5'7" SpO2: 95% Weight: 257 lbs 08/28/2015 Blood Pressure 1: 122/72 Code : 8480-6 BMI: 39.6 Code : 48273-5 Heart Rate 1 : 75 bpm Height: 5'7" SpO2: 96% Weight: 253 lbs 07/09/2015 Blood Pressure 1: 140/78 Code : 8480-6 Blood Pressure 1: 135/78 Code: 8480-6 BMI: 39.5 Code: 77813-4 Heart Rate 1: 62 bpm Height: 5'7" SpO2: 95% Weight: 252 lbs 03/06/2015 Blood Pressure 1: 142/88 Code : 8480-6 BMI: 39.3 Code : 29533-7 Heart Rate 1 : 65 bpm Height: [...] data Encounters Encounter Performer Location Codes Date ([id number]) [id number] EST. PATIENT, LEVEL III Diagnosis: Essential (primary) hypertension[ICD10: I10] Diagnosis: Low back pain[ICD10: M54.5] Alis Spring MD, [facility] CPT-4: 04647 08/15/2018 [id number]) [id number] EST. PATIENT, LEVEL III Diagnosis: Essential (primary) hypertension[ICD10: I10] Diagnosis: Cough[ICD10: R05] Diagnosis: Low back pain[ICD10: M54.5] Alis Spring MD, [facility] CPT-4: 61639 08/01/2018 [id number]) [id number] EST. PATIENT, LEVEL IV Diagnosis: Encounter for immunization[ICD10: Z23] Diagnosis: Essential (primary) hypertension[ICD10: I10] Diagnosis: Chronic atrial fibrillation[ICD10: I48.2] Diagnosis: Major depressive disorder, recurrent, mild[ICD10: F33.0] Scarlett Spring MD, [facility] CPT-4: 92837 04/20/[phone]) [id number] EST. PATIENT, LEVEL IV Diagnosis: Essential (primary) hypertension[ICD10: I10] Diagnosis: Obstructive sleep apnea (adult) (pediatric)[ICD10: G47.33] Diagnosis: Chronic atrial fibrillation[ICD10: I48.2] [facility] CPT-4: 79917 12/16/2017 [id number]) [id number] EST. PATIENT, LEVEL IV Diagnosis: Essential (primary) hypertension[ICD10: I10] Diagnosis: Chronic atrial fibrillation[ICD10: I48.2] Scarlett Spring MD, [facility] CPT-4: 23054 08/23/2017 [id number]) [phone] EST. PATIENT, LEVEL IV Diagnosis: Paroxysmal atrial fibrillation[ICD10: I48.0] Diagnosis: Essential (primary) hypertension[ICD10: I10] Scarlett Spring MD, [facility] CPT-4: 25900 02/02/2017 [id number] EST. PATIENT, LEVEL III Diagnosis: Acute laryngopharyngitis[ICD10: J06.0] Diagnosis: Cough[ICD10: R05] Diagnosis: Pleurodynia[ICD10: R07.81] Diagnosis: Other dorsalgia[ICD10: M54.89] Kassandra Spring MD, [facility] CPT-4 : 86726 11/26/2016 ([id number]) 75371 EST. PATIENT, LEVEL IV Diagnosis: Essential (primary) hypertension[ICD10: I10] Diagnosis: Pain in left knee[ICD10: M25.562] Diagnosis: Low back pain[ICD10: M54.5] Diagnosis: Major depressive disorder, recurrent, moderate[ICD10: F33.1] Scarlett Spring MD, [facility] CPT-4: 54318 10/07/2016 ([id number]) 03912 EST. PATIENT, LEVEL IV Diagnosis: Essential (primary) hypertension[ICD10: I10] Diagnosis: Rash and other nonspecific skin eruption[ICD10: R21] Diagnosis: Major depressive disorder, recurrent, mild[ICD10: F33.0] Scarlett Spring MD, [facility] CPT-4: 87620 09/16/2016 [id number] EST. PATIENT, LEVEL IV Diagnosis: Pain in left lower leg[ICD10: M79.662] Diagnosis: Pain in left knee[ICD10: M25.562] Kassandra Spring MD, [facility] CPT -4: 26004 09/07/2016 ([id number]) [id number] EST. PATIENT, LEVEL IV Diagnosis: Encounter for immunization[ICD10: Z23] Diagnosis: Essential (primary) hypertension[ICD10: I10] Diagnosis: Mixed hyperlipidemia[ICD10: E78.2] Scarlett Spring MD, [facility] CPT-4: 73644 04/08/2016 ([id number]) 83709 EST. PATIENT, LEVEL III Diagnosis: Essential (primary) hypertension[ICD10: I10] Diagnosis: Shortness of breath[ICD10: R06.02] Scarlett Spring MD [facility] CPT-4: 53399 03/05/2016 ([id number]) 78938 EST. PATIENT, LEVEL III Diagnosis: Chronic obstructive pulmonary disease, unspecified[ICD10: J44.9] Scarlett Spring MD [facility] CPT-4: 05655 12/04/2015 ([id number]) 19300 EST. PATIENT, LEVEL IV Diagnosis: Essential (primary) hypertension[ICD10: I10] Diagnosis: Allergic rhinitis due to pollen[ICD10: J30.1] Scarlett Spring MD [facility] CPT-4: 33819 11/18/2015 ([id number]) [id number] EST. PATIENT, LEVEL IV Diagnosis: Localized edema[ICD10: R60.0] Diagnosis: Dysuria[ICD10: R30.0] Diagnosis: Essential (primary) hypertension[ICD10: I10] Diagnosis: Nausea[ICD10: R11.0] Alis Spring MD [facility] CPT-4: 18177 09/30/2015 ([id number]) 28948 EST. PATIENT, LEVEL II Diagnosis: Methicillin susceptible Staphylococcus aureus infection as the cause of diseases classified elsewhere[ICD10: B95.61] Diagnosis: Methicillin susceptible Staphylococcus aureus infection, unspecified site[ICD10: A49.01] Alis Spring MD [facility] CPT-4: 43909 09/09/2015 ([id number]) 07658 EST. PATIENT, LEVEL III Diagnosis: Dermatophytosis, unspecified[ICD10: B35.9] Diagnosis: Rash and other nonspecific skin eruption[ICD10: R21] Scarlett Spring MD [facility] CPT-4: 19998 08/28/2015 ([id number]) [id number] EST. PATIENT, LEVEL IV Diagnosis: Essential (primary) hypertension[ICD10: I10] Diagnosis: Gastro-esophageal reflux disease without esophagitis[ICD10: K21.9] Diagnosis: Other dorsalgia[ICD10: M54.89] Scarlett Spring MD, [facility] CPT- 4: 13988 07/09/2015 ([id number]) OFFICE VISIT, NEW - LEVEL 4 Diagnosis: ESSENTIAL HYPERTENSION[ICD9: 401.9] Diagnosis: Osteoporosis[ICD9: 733.00] Diagnosis: Back pain[ICD9: 724.5] Diagnosis: Insomnia[ICD9: 780.52] Diagnosis: ESOPHAGEAL REFLUX[ICD9: 530.81] Scarlett Spring MD, [facility] CPT- 4: 44769 03/06/2015 Plan of Care Planned Activity Notes [...] Ortho if symptoms do not improve 08/15/2018 Patient Education: Patient Medication Summary Completed 08/15/2018 Patient Education: Back Pain Completed 08/15/2018 Visit Plan: HTN-onofre induced cough-stop lisinopril -start losartan -monitor blood pressure and follow up in 2 weeks Low back pain-xray lumbar spine and refer for PT 08/01/2018 Appointment: Alis Muhammad WPtel: [phone] [phone] (15 min) Moderate 08/01/2018 Patient Education: Patient Medication Summary Completed 08/01/2018 Patient Education: Back Pain Completed 08/01/2018 Care Plan: X-RAY EXAM L-S SPINE 2/3 S LOINC : 23407-7 Pending 08/01/2018 Visit Plan: Hypertension - well [...] shot today. 04/20/2018 [facility]ment[phone] (15 min) Moderate 04/20/2018 Patient Education: Patient [...] care surrogate. 02/09/2018 Appointment: Kassandra Argueta WPtel: [facility] [facility] - Annual Wellness Visit 02/09/2018 Patient [...] night. 12/16/2017 Appointment: Scarlett Spring WPtel: [phone] [facility] (15 min) Moderate 12/16/2017 Patient Education: [...] uncontrolled. 08/23/2017 Appointment: Scarlett Spring WPtel: [phone] [facility]66[facility] (15 min) Moderate 08/23/2017 Patient Education: Patient [...] cardiology 02/03/2017 Appointment: Kassandra Argueta WPtel: [phone] [facility] [place] [address] - Annual Wellness Visit 02/03/2017 Patient Education: [...] home. 02/02/2017 Appointment: Scarlett Spring [facility]el[phone] [facility] (15 min) Moderate 02/02/2017 Patient Education: Patient [...] improve. 11/26/2016 Appointment: [facility]ass[facility] Argueta [phone] (30 min) Complex 11/26/2016 Patient Education: Patient [...] symptoms. 10/07/2016 Appointment: Scar[facility] Spring [facility]el[phone] [facility] [place] (15 min) Moderate 10/07/2016 Patient Education: Patient Medication Summary Completed 10/07/2016 Patient Education: Obesity Completed 10/07/2016 Patient Education: Hypertension Completed 10/07/2016 Care Plan: VASCULAR STUDY Pending 10/04/2016 Care Plan: X-RAY EXAM OF KNEE [address] [facility] : 78358-3 Pending 10/04/2016 Visit Plan: Hypertension - well [...] paroxetine 09/16/2016 Appointment: Scarlett Spring WPtel: [facility] [place] (15 min) Moderate 09/16/2016 Patient Education: [...] improve. 09/07/2016 Appointment: [facility]ass[facility] Argueta [phone] [place] (10 min) Simple 09/07/2016 Patient Education: [...] order 04/08/2016 Appointment: Scarlett Spring [facility]Ptel[phone] [facility] (15 min) Moderate 04/08/2016 Patient Education: Patient [...] days. 03/05/2016 Appointment: Scarlett Spring [facility]Ptel[phone] (15 min) Moderate 03/05/2016 Patient Education: Patient Medication Summary Completed 03/05/2016 Visit Plan: COPD - chronic problem for this patient. We have reviewed chronic treatment strategy, symptom control, and plans for acute exacerbations. No changes today to the current treatment plan as the patient is stable, monitor for acute changes. anoro samples given to the patient 12/04/2015 Appointment: Scarlett Spring [facility]Ptel[phone] [facility] [place] (15 min) Moderate 12/04/2015 Patient Education: Patient [...] allergy spray. 11/18/2015 Appointment: Scarlett Spring WPtel: [facility]2 [facility] (15 min) Moderate 11/18/2015 Patient Education: Patient Medication Summary Completed 11/18/2015 Patient Education: Obesity Completed 11/18/2015 Patient Education: Hypertension Completed 11/18/2015 Appointment: Scarlett Spring WPtel: [facility]1 [facility] (15 min) Moderate 11/07/2015 Visit Plan: Hypertension [...] report. 08/28/2015 Appointment: Scarlett Spring WPtel: [facility]5 [facility] (15 min) Moderate 08/28/2015 Patient Education: Patient [...] improving. 07/09/2015 Appointment: Scarlett Spring WPtel: [phone] [facility] (15 min) Moderate 07/09/2015 Patient Education: [...] improving. 03/06/2015 Appointment: Scarlett Spring WPtel: [facility] [place] (S[facility] New Patient 03/06/2015 Patient Education: [...] RESOLVED . MSSA of groin and under [id number]-[id number] bactrim and call if rash does not [...]
[2018-10-11 10:12] LABS: INR 2.3 (0.8-1.4); PROTHROMBIN TIME PATIENT 25.3 SEC (12.2-14.7)
--- OUTSIDE RECORDS SUMMARY | 2018-10-11 10:13 | XMS REPORT | CCD ---
Author Author Scarlett Spring Organization Scarlett Spring MD, [facility] Address [address] [place] [address] Phone Care Team Providers Care Transaction Manager Name Role Phone PP Unavailable CCM Unavailable Summary Purpose Interface Exchange Insurance Providers Payer name Policy type / Coverage type Covered democrat ID Effective Begin Date Effective End Date WPS Medicare Part B Medicare Part B [id number] Unknown [place] [employer] Medicare Part B [id number] Unknown Family history Mother Diagnosis Age At Onset Hypertension Unknown Heart Attack Unknown Brother Diagnosis Age At Onset Heart disease Unknown Runs in the family Diagnosis Age At Onset Heart disease Unknown Daughter Diagnosis Age At Onset Heart Attack Unknown Hyperlipidemia Unknown Hypertension Unknown Social History Social History Element Codes Description Effective Dates Number of children Unknown 2 daughter lives in [place], son - does not have contact [address]: 1770614 Quit over 10 years ago 1990 - previously smoked 2ppd x 25 years. 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 Allergies, Adverse Reactions, Alerts Substance Reaction Codes Entered Date Inactivated Date Status * NO KNOWN FOOD ALLERGIES Unknown 03/06/2015 No Inactive Date Active Iodine RxNorm: 5933 03/06/2015 No Inactive Date Active Penicillin Unknown 03/06/2015 No Inactive Date Active Past Medical History Illness Codes Condition Status Onset Date Resolved Date Cough ICD-9: 786.2 ICD-10: R05 Active 11/26/2016 Unknown Essential (primary) hypertension ICD-9: 401.1 ICD-10: I10 Active 12/16/2017 Unknown Low back pain ICD-9: 724.2 ICD-10: M54.5 Active 10/07/2016 Unknown Chronic atrial fibrillation ICD-9: 427.31 ICD-10: [...] Problems Condition Codes Effective Dates Condition Status Cough ICD-9: 786.2 ICD-10: R05 11/26/2016 Active Essential (primary) hypertension ICD-9: 401.1 ICD-10: I10 12/16/2017 Active Low back pain ICD-9: 724.2 ICD-10: M54.5 10/07/2016 Active Chronic atrial fibrillation ICD-9: 427.31 ICD-10: [...] Fill Instructions paroxetine 20 mg tablet RxNorm: 4884749 TAKE ONE TABLET BY MOUTH DAILY 08/12/2018 08/06/2019 Active losartan 25 mg tablet RxNorm: 611719 1 Tablet(s) PO daily 201809/29/2018 Active losartan 25 mg tablet RxNorm: 649749 1 Tablet(s) PO daily 201809/29/2018 Active trazodone 50 mg tablet RxNorm: 211534 TAKE ONE TABLET BY MOUTH DAILY 07/25/2018 09/22/2018 Active Ambien 10 mg tablet RxNorm: 137344 Tablet(s) TAKE ONE TABLET BY MOUTH AT BEDTIME 06/24/2018 09/21/2018 Active trazodone 50 mg tablet RxNorm: 328849 TAKE ONE TABLET BY MOUTH DAILY 04/25/2018 07/23/2018 Inactive Ambien 10 mg tablet RxNorm: 383005 Tablet(s) TAKE ONE TABLET BY MOUTH AT BEDTIME 03/23/2018 06/19/2018 Inactive terazosin 5 mg capsule RxNorm: 803243 TAKE ONE CAPSULE BY MOUTH DAILY 03/14/2018 09/09/2018 Active Ambien 10 mg tablet RxNorm: 528026 Tablet(s) TAKE ONE TABLET BY MOUTH AT BEDTIME 01/18/2018 03/17/2018 Inactive trazodone 50 mg tablet RxNorm: 714020 TAKE ONE TABLET BY MOUTH ONCE DAILY 01/10/2018 03/22/2018 Inactive trazodone 50 mg tablet RxNorm: 164801 Tablet(s) TAKE ONE TABLET BY MOUTH ONCE DAILY 01/10/2018 04/24/2018 Inactive Ambien 10 mg tablet RxNorm: 478972 Tablet(s) TAKE ONE TABLET BY MOUTH AT BEDTIME 10/22/2017 01/17/2018 Inactive trazodone 50 mg tablet RxNorm: 430958 TAKE ONE TABLET BY MOUTH ONCE DAILY 10/18/2017 01/09/2018 Inactive omeprazole 20 mg capsule,delayed release RxNorm: 360721 TAKE ONE CAPSULE BY MOUTH ONCE DAILY AT BEDTIME 08/27/2017 No Stop Date Active trazodone 50 mg tablet RxNorm: 287885 TAKE ONE TABLET BY MOUTH ONCE DAILY 08/18/2017 10/17/2017 Inactive Ambien 10 mg tablet RxNorm: 436952 Tablet(s) TAKE ONE TABLET BY MOUTH AT BEDTIME 08/18/2017 03/22/2018 Inactive paroxetine 20 mg tablet RxNorm: 3952208 TAKE ONE TABLET BY MOUTH ONCE DAILY 07/27/2017 08/11/2018 Inactive Ambien 10 mg tablet RxNorm: 038916 Tablet(s) TAKE ONE TABLET BY MOUTH AT BEDTIME 06/23/2017 03/22/2018 Inactive omeprazole 20 mg capsule,delayed release RxNorm: 769288 TAKE ONE CAPSULE BY MOUTH ONCE DAILY AT BEDTIME 04/23/20172017 Inactive trazodone 50 mg tablet RxNorm: 603418 TAKE ONE TABLET BY MOUTH ONCE DAILY 04/13/2017 08/10/2017 Inactive terazosin 5 mg capsule RxNorm: 178574 Capsule(s) TAKE ONE CAPSULE BY MOUTH DAILY 04/08/2017 03/03/2018 Inactive Ambien 10 mg tablet RxNorm: 735702 Tablet(s) TAKE ONE TABLET BY MOUTH AT BEDTIME 02/17/2017 03/22/2018 Inactive Tylenol-Codeine #3 300 mg-30 mg tablet RxNorm: 240118 1 Tablet(s) PO QID as needed 02/02/2017 03/03/2017 Inactive metoprolol succinate ER 50 mg tablet,extended release 24 hr RxNorm: 483129 TAKE ONE TABLET BY MOUTH ONCE DAILY 12/23/2016 02/02/2017 Inactive Zithromax Z-Ted 250 mg tablet RxNorm: 795516 1 Tablet(s) PO UD 11/26/2016 02/16/2017 Inactive trazodone 50 mg tablet RxNorm: 754902 TAKE ONE TABLET BY MOUTH ONCE DAILY 11/12/2016 03/11/2017 Inactive Ambien 10 mg tablet RxNorm: 157328 Tablet(s) TAKE ONE TABLET BY MOUTH AT BEDTIME 10/22/2016 02/15/2017 Inactive paroxetine 20 mg tablet RxNorm: 0341079 1 Tablet(s) PO daily TAKE ONE TABLET BY MOUTH DAILY 09/16/2016 06/12/2017 Inactive meloxicam 7.5 mg tablet RxNorm: 095456 1 Tablet(s) PO daily 11/14/2016 Inactive Protonix 40 mg tablet,delayed release RxNorm: 366200 1 Tablet(s) PO daily 09/16/2016 08/22/2017 Inactive sucralfate 1 gram tablet RxNorm: 977422 1 Tablet(s) PO TID 08/22/2017 Inactive Ambien 10 mg tablet RxNorm: 094873 Tablet(s) TAKE ONE TABLET BY MOUTH AT BEDTIME 08/24/2016 03/22/2018 Inactive trazodone 50 mg tablet RxNorm: 233086 Tablet(s) TAKE ONE TABLET BY MOUTH DAILY 07/29/2016 11/11/2016 Inactive Ambien 10 mg tablet RxNorm: 308270 TAKE ONE TABLET BY MOUTH AT BEDTIME 06/23/2016 03/22/2018 Inactive Ambien 10 mg tablet RxNorm: 672253 Tablet(s) TAKE ONE TABLET BY MOUTH EVERY NIGHT AT BEDTIME 06/22/2016 06/23/2016 Inactive Lasix 40 mg tablet RxNorm: 658665 1 Tablet(s) PO daily as needed for swelling 04/03/2016 09/15/2016 Inactive potassium chloride ER 20 mEq tablet,extended release RxNorm: 663176 1 Tablet(s) PO daily for swelling take with lasix as needed 04/03/2016 09/15/2016 Inactive Ambien 10 mg tablet RxNorm: 599478 Tablet(s) TAKE ONE TABLET BY MOUTH EVERY NIGHT AT BEDTIME 04/03/2016 03/22/2018 Inactive omeprazole 20 mg capsule,delayed release RxNorm: 007664 TAKE ONE CAPSULE BY MOUTH EVERY NIGHT AT BEDTIME 03/31/20162016 Inactive paroxetine 20 mg tablet RxNorm: 8880606 TAKE ONE TABLET BY MOUTH DAILY 03/31/2016 09/15/2016 Inactive trazodone 50 mg tablet RxNorm: 915761 TAKE ONE TABLET BY MOUTH DAILY 03/20/2016 07/28/2016 Inactive terazosin 5 mg capsule RxNorm: 343399 TAKE ONE CAPSULE BY MOUTH DAILY 03/06/2016 10/06/2016 Inactive Ambien 10 mg tablet RxNorm: 005522 Tablet(s) TAKE ONE TABLET BY MOUTH EVERY NIGHT AT BEDTIME 01/17/2016 04/02/2016 Inactive loratadine 10 mg tablet RxNorm: 615827 1 Tablet(s) PO daily 09/15/2016 Inactive mupirocin 2 % topical ointment RxNorm: 044989 1 Application TOP TID 11/18/2015 12/01/2015 Inactive metoprolol succinate ER 50 mg tablet,extended release 24 hr RxNorm: 317469 1 Tablet(s) PO daily 11/18/2015 11/11/2016 Inactive loratadine 10 mg tablet RxNorm: 357514 1 Tablet(s) PO daily 01/14/2016 Inactive Lasix 40 mg tablet RxNorm: 170297 1 Tablet(s) PO daily as needed for swelling 10/30/2015 11/28/2015 Inactive potassium chloride ER 20 mEq tablet,extended release RxNorm: 126867 1 Tablet(s) PO daily for swelling take with lasix as needed 10/30/2015 11/28/2015 Inactive Tylenol-Codeine #3 300 mg-30 mg tablet RxNorm: 832441 1 Tablet(s) PO QID as needed 10/25/2015 02/01/2017 Inactive Ambien 10 mg tablet RxNorm: 228994 Tablet(s) TAKE ONE TABLET BY MOUTH EVERY NIGHT AT BEDTIME 10/18/2015 03/22/2018 Inactive Diflucan 150 mg tablet RxNorm: 738174 1 Tablet(s) PO daily 02/201612/03/2015 Inactive Lasix 20 mg tablet RxNorm: 112141 1 Tablet(s) PO PRN fror swelling 09/27/2015 10/29/2015 Inactive potassium chloride ER 10 mEq capsule,extended release RxNorm: 868204 1 Capsule(s) PO PRN for swelling take with lasix 09/27/2015 10/29/2015 Inactive Bactrim DS 800 mg-160 mg tablet RxNorm: 647829 1 Tablet(s) PO BID 09/02/2015 09/11/2015 Inactive Bactrim DS 800 mg-160 mg tablet RxNorm: 656008 1 Tablet(s) PO BID 09/02/2015 09/01/2015 Inactive nystatin 100,000 unit/gram topical cream RxNorm: 741497 1 Gram(s) TOP TID 08/28/2015 09/26/2015 Inactive Diflucan 150 mg tablet RxNorm: 883671 1 Tablet(s) PO daily 09/201509/06/2015 Inactive betamethasone dipropionate 0.05 % topical ointment RxNorm: 740980 1 Application TOP TID to affected area 08/02/20152016 Inactive nystatin 100,000 unit/gram topical powder RxNorm: 627114 1 Gram(s) TOP QID 07/09/2015 08/01/2015 Inactive Ambien 10 mg tablet RxNorm: 094352 1 Tablet(s) PO QHS 201406/18/2015 Inactive Ambien 10 mg tablet RxNorm: 122830 TAKE ONE TABLET BY MOUTH EVERY NIGHT AT BEDTIME 06/19/2015 09/16/2015 Inactive Vitamin D2 50,000 unit capsule RxNorm: 686159 1 Capsule(s) PO QW 03/07/2015 03/06/2015 Inactive Vitamin D2 50,000 unit capsule RxNorm: 396994 1 Capsule(s) PO QW 03/07/2015 05/05/2015 Inactive terazosin 5 mg capsule RxNorm: 125461 1 Capsule(s) PO daily 06/201502/28/2016 Inactive [SAVINGS FOR NON-COVERED DRUGS -- BIN:[id number], PCN: [id number], Group: XXXXX, ID# [id number], Questions: . THIS IS NOT INSURANCE.] trazodone 50 mg tablet RxNorm: 639095 1 Tablet(s) PO daily 06/201502/28/2016 Inactive paroxetine 20 mg tablet RxNorm: 3545064 1 Tablet(s) PO daily 02/28/2016 Inactive Tylenol-Codeine #3 300 mg-30 mg tablet RxNorm: 684517 1 Tablet(s) PO QID as needed 03/06/2015 07/02/2015 Inactive amlodipine 10 mg tablet RxNorm: 412614 1 Tablet(s) PO daily 06/201511/17/2015 Inactive metoprolol succinate ER 25 mg tablet,extended release 24 hr RxNorm: 905108 1 Tablet(s) PO daily 03/06/2015 11/17/2015 Inactive omeprazole 20 mg capsule,delayed release RxNorm: 012939 1 Capsule(s) PO QHS 03/06/2015 02/28/2016 Inactive omeprazole 20 mg capsule,delayed release RxNorm: 619143 1 Capsule(s) PO QHS 01/31/2015 01/30/2015 Inactive omeprazole 20 mg capsule,delayed release RxNorm: 507893 1 Capsule(s) PO QHS 01/31/2015 01/30/2015 Inactive omeprazole 20 mg capsule,delayed release RxNorm: 255701 1 Capsule(s) PO QHS 01/31/2015 03/05/2015 Inactive Ambien 10 mg tablet RxNorm: 997423 1 Tablet(s) PO QHS 201404/21/2015 Inactive paroxetine 20 mg tablet RxNorm: 695068 1 Tablet(s) PO daily 08/201412/24/2014 Inactive Ambien 10 mg tablet RxNorm: 955419 1 Tablet(s) PO QHS 201412/24/2014 Inactive paroxetine 20 mg tablet RxNorm: 885185 1 Tablet(s) PO daily 08/201403/05/2015 Inactive terazosin 5 mg capsule RxNorm: 317347 1 Capsule(s) PO daily 07/201403/05/2015 Inactive [SAVINGS FOR NON-COVERED DRUGS -- BIN:[id number], PCN: ASPROD1, Group: XXXXX, ID# [id number], Questions: . THIS IS NOT INSURANCE.] terazosin 5 mg capsule RxNorm: 724440 1 Capsule(s) PO daily 07/201411/22/2014 Inactive Lasix 20 mg tablet RxNorm: 919118 1 Tablet(s) PO daily No Start Date Active K-Dur 10 mEq tablet,extended release RxNorm: 129063 1 Tablet(s) PO daily No Start Date Active hydrochlorothiazide 25 mg tablet RxNorm: 835343 1 Tablet(s) PO daily No Start Date Active Eliquis 5 mg tablet RxNorm: 9822733 1 Tablet(s) PO BID No Start Date Active Vitamin D3 2,000 unit tablet RxNorm: 674194 1 Tablet(s) PO daily No Start Date Active amiodarone 200 mg tablet RxNorm: 619044 1 Tablet(s) PO BID No Start Date Active Zetia 10 mg tablet RxNorm: 789338 1 Tablet(s) PO daily No Start Date Active Lipitor 80 mg tablet RxNorm: 670073 1/2 Tablet(s) PO daily No Start Date Active metoprolol succinate ER 25 mg tablet,extended release 24 hr RxNorm: 631162 1 Tablet(s) PO daily No Start Date 2014 Inactive Entresto 49 mg-51 mg tablet RxNorm: 2925868 1 Tablet(s) PO BID No Start Date 04/19/2018 Inactive sotalol 80 mg tablet RxNorm: 9268353 1 Tablet(s) PO BID No Start Date 04/19/2018 Inactive betamethasone dipropionate 0.05 % topical ointment RxNorm: 745088 1 Application TOP TID to affected area No Start Date 01/2016 Inactive trazodone 50 mg tablet RxNorm: 120265 1 Tablet(s) PO daily No Start Date 03/05/2015 Inactive potassium chloride ER 10 mEq capsule,extended release RxNorm: 799751 1 Capsule(s) PO PRN for swelling take with lasix No Start Date 09/26/2015 Inactive amlodipine 10 mg tablet RxNorm: 042506 1 Tablet(s) PO daily No Start Date 03/05/2015 Inactive isosorbide mononitrate ER 30 mg tablet,extended release 24 hr RxNorm: 528334 1 Tablet(s) PO daily No Start Date 2017 Inactive aspirin 81 mg tablet,delayed release RxNorm: 983631 1 Tablet(s) PO daily No Start Date 02/02/2017 Inactive Lasix 20 mg tablet RxNorm: 920694 1 Tablet(s) PO PRN fror swelling No Start Date 09/26/2015 Inactive lisinopril 5 mg tablet RxNorm: 066310 1 Tablet(s) PO daily No Start Date 07/31/2018 Inactive Crestor 40 mg tablet RxNorm: 300165 1 Tablet(s) PO daily No Start Date 09/15/2016 Inactive metoprolol succinate ER 100 mg tablet,extended release 24 hr RxNorm: 746964 1 Tablet(s) PO daily No Start Date 2017 Inactive Medication Administered No Medication Administered data Immunizations Vaccine Codes Date Status Influenza CVX: 141 04/20/2018 completed Influenza CVX: 141 04/08/2016 completed Pneumococcal (Adult) CVX: 133 04/08/2016 completed Assessments Condition Codes Effective Dates Low back pain ICD-10: M54.5 ICD-9: 724.2 08/01/2018 Essential (primary) hypertension ICD-10: I10 ICD-9: 401.1 08/01/2018 Cough ICD-10: R05 ICD-9: 786.2 08/01/2018 Major [...] Visit Reason For Visit Effective Dates Notes cough 08/01/2018 hypertension 04/20/2018 Annual Medicare Wellness Exam 02/09/2018 hypertension 12/16/2017 hypertension 08/23/2017 Annual Medicare Wellness Exam 02/03/2017 hypertension 02/02/2017 sinus congestion 11/26/2016 hypertension 10/07/2016 hypertension 09/16/2016 knee pain 09/07/2016 dyspnea 04/08/2016 dyspnea 03/05/2016 dyspnea 12/04/2015 edema 11/18/2015 edema 09/30/2015 rash 09/09/2015 rash 08/28/2015 back pain 07/09/2015 back pain 03/06/2015 Results Observation Observation Code Item Item Code Result Date Lipid Ord30 CHOL 234 mg/dL 08/01/2018 Lipid Ord30 HDL 69.0 mg/dl 08/01/2018 Lipid Ord30 TRIG 57 mg/dL 08/01/2018 Lipid Ord30 LDL 154 mg/dL 08/01/2018 Lipid Ord30 C/HDL 3.4 Ratio 08/01/2018 Cbc With Differential Ord2 WBC 3.99 [...] 27.3 pg 08/01/2018 Cbc With Differential Ord2 [place]% 9.8 % 08/01/2018 Cbc With Differential Ord2 [...] 0.79 K/ul 08/01/2018 Cbc With Differential Ord2 [place] ABS# 0.4 K/ul 08/01/2018 Cbc With Differential Ord2 Eos ABS# 0.1 K/ul 08/01/2018 Cbc With Differential Ord2 Baso ABS# 0.0 K/ul 08/01/2018 Tsh Ord6 TSH (3rd IS) 0.81 uIU/mL 08/01/2018 Comp Metabolic Taq435 NA 140 mEq/L 08/01/2018 Comp Metabolic Gyv825 K 4.2 mEq/L 08/01/2018 Comp Metabolic Ixm980 CL 102 mEq/L 08/01/2018 Comp Metabolic Hmy004 CO2 27.0 mEq/L 08/01/2018 Comp Metabolic Rqe830 ANION GAP 15 08/01/2018 Comp Metabolic Tss160 GLUCOSE 107 mg/dL 08/01/2018 Comp Metabolic Heb712 Creat 1.0 mg/dL 08/01/2018 Comp Metabolic Kxe221 eGFR 58 ml/min/1.73m2 08/01/2018 Comp Metabolic Brx030 BUN 10 mg/dL 08/01/2018 Comp Metabolic Wup378 B/C Ratio 10.0 Ratio 08/01/2018 Comp Metabolic Pvf284 CALCIUM 8.9 mg/dL 08/01/2018 Comp Metabolic Klj622 ALK PHOS 68 U/L 08/01/2018 Comp Metabolic Hfc226 AST(SGOT) 18 U/L 08/01/2018 Comp Metabolic Rcs107 ALT(SGPT) 14 U/L 08/01/2018 Comp Metabolic Nxe034 BILI T 0.5 mg/dL 08/01/2018 Comp Metabolic Nui352 ALBUMIN 4.0 g/dL 08/01/2018 Comp Metabolic Cso516 TPRO 6.3 g/dL 08/01/2018 Comp Metabolic Zdf656 GLOB 2.3 g/dL 08/01/2018 Comp Metabolic Qdm100 A/G Ratio 1.7 Ratio 08/01/2018 Comp Metabolic Lkv088 Osmo 279 mOsmo 08/01/2018 Cbc With Differential Ord2 WBC 5.80 K/ul 09/30/2015 Cbc With Differential Ord2 RBC 4.52 M/ul 09/30/2015 Cbc With Differential Ord2 HGB 12.5 g/dl 09/30/2015 Cbc With Differential Ord2 HCT 39.7 % 09/30/2015 Cbc With Differential Ord2 Neut% 66.7 % 09/30/2015 Cbc With Differential Ord2 MCV 87.8 fl 09/30/2015 Cbc With Differential Ord2 Lymph% 19.0 % 09/30/2015 Cbc With Differential Ord2 [place]% 10.7 % 09/30/2015 Cbc With Differential Ord2 MCH 27.7 pg 09/30/2015 Cbc With Differential Ord2 MCHC 31.5 pg 09/30/2015 Cbc With Differential Ord2 Eos% 3.4 % 09/30/2015 Cbc With Differential Ord2 Baso% 0.2 % 09/30/2015 Cbc With Differential Ord2 PLT 212 K/ul 09/30/2015 Cbc With Differential Ord2 Neut ABS# 3.87 K/ul 09/30/2015 Cbc With Differential Ord2 RDW 15.1 % 09/30/2015 Cbc With Differential Ord2 Lymph ABS# 1.10 K/ul 09/30/2015 Cbc With Differential Ord2 [place] ABS# 0.6 K/ul 09/30/2015 Cbc With Differential Ord2 Eos ABS# 0.2 K/ul 09/30/2015 Cbc With Differential Ord2 Baso ABS# 0.0 K/ul 09/30/2015 Cbc With Differential Ord2 New Analyzer Notice Please note new ref ranges starting 08-07-2015 due to implemntation of new five part differential hematolgy analyzer. 09/30/2015 Comp Metabolic Fmw352 NA 137 mEq/L 09/30/2015 Comp Metabolic Hcw135 K 4.5 mEq/L 09/30/2015 Comp Metabolic Fra333 CL 102 mEq/L 09/30/2015 Comp Metabolic Fqf329 CO2 26.0 mEq/L 09/30/2015 Comp Metabolic Tyf528 ANION GAP 14 09/30/2015 Comp Metabolic Rfa967 GLUCOSE 89 mg/dL 09/30/2015 Comp Metabolic Bml573 Creat 0.8 mg/dL 09/30/2015 Comp Metabolic Gcn321 eGFR 79 ml/min/1.73m2 09/30/2015 Comp Metabolic Pyk624 BUN 14 mg/dL 09/30/2015 Comp Metabolic Bas378 B/C Ratio 18.2 Ratio 09/30/2015 Comp Metabolic Qyz865 CALCIUM 8.9 mg/dL 09/30/2015 Comp Metabolic Apj813 ALK PHOS 65 U/L 09/30/2015 Comp Metabolic Wat323 AST(SGOT) 26 U/L 09/30/2015 Comp Metabolic Aoj546 ALT(SGPT) 18 U/L 09/30/2015 Comp Metabolic Qcx330 BILI T 0.6 mg/dL 09/30/2015 Comp Metabolic Vcu611 ALBUMIN 3.8 g/dL 09/30/2015 Comp Metabolic Fqp933 TPRO 6.6 g/dL 09/30/2015 Comp Metabolic Ols695 GLOB 2.8 g/dL 09/30/2015 Comp Metabolic Iwz369 A/G Ratio 1.4 Ratio 09/30/2015 Comp Metabolic Wsk535 Osmo 274 mOsmo 09/30/2015 Vitamin D 25 Oh Jta0749 VITAMIN D, 25 HYDROXY 28.14 ng/mL Cbc [...] With Differential Ord2 RDW 15.7 % 03/06/2015 Comp Metabolic Jra805 NA 137 mEq/L 03/06/2015 Comp Metabolic Qhn872 K 4.3 mEq/L 03/06/2015 Comp Metabolic Hjo291 CL 104 mEq/L 03/06/2015 Comp Metabolic Xqv035 CO2 28.0 mEq/L 03/06/2015 Comp Metabolic Gcn683 ANION GAP 9 03/06/2015 Comp Metabolic Ket427 GLUCOSE 93 mg/dL 03/06/2015 Comp Metabolic Rkz436 Creat 0.8 mg/dL 03/06/2015 Comp Metabolic Ddj184 eGFR 81 ml/min/1.73m2 03/06/2015 Comp Metabolic Zrd505 BUN 12 mg/dL 03/06/2015 Comp Metabolic Tix348 B/C Ratio 16.0 Ratio 03/06/2015 Comp Metabolic Hsb448 CALCIUM 8.9 mg/dL 03/06/2015 Comp Metabolic Cly813 ALK PHOS 56 U/L 03/06/2015 Comp Metabolic Hof610 AST(SGOT) 22 U/L 03/06/2015 Comp Metabolic Aus249 ALT(SGPT) 15 U/L 03/06/2015 Comp Metabolic Tqg679 BILI T 0.4 mg/dL 03/06/2015 Comp Metabolic Eme135 ALBUMIN 4.0 g/dL 03/06/2015 Comp Metabolic Ooj387 TPRO 6.5 g/dL 03/06/2015 Comp Metabolic Qle714 GLOB 2.5 g/dL 03/06/2015 Comp Metabolic Uio314 A/G Ratio 1.6 Ratio 03/06/2015 Comp Metabolic Tcc415 Osmo 273 mOsmo 03/06/2015 Tsh Ord6 hTSH II 1.05 uIU/mL 03/06/2015 Review of Systems System Result Effective Dates Constitutional recent illness 08/01/2018 Constitutional No chills [...] Formatting Model/CDA Sections, Assigned to/Amparo Mims CPT-4: 95383Iyzmhmn 04/20/2018 PPPS, SUBSEQ VISIT CPT -4: G0439 02/09/2018 PPPS, SUBSEQ VISIT CPT -4: G0439 02/03/2017 ADMIN INFLUENZA VIRUS VAC CPT-4: G0008 04/08/2016 ADMIN PNEUMOCOCCAL VACCINE SNOMED CT: 51295508 CPT-4: G0009 04/08/2016 PNEUMOCOCCAL VACC [address]: 94360338 CPT-4: 19444 04/08/2016 FLU VACC PRSV FREE INC ANTIG CPT-4: 62712 04/08/2016 Vital Signs Date Vital 08/01/2018 Blood Pressure 1: 130/70 Code : 8480-6 BMI: 40.7 Code : 90843-2 Heart Rate 1 : 80 bpm Height: 5'7" SpO2: 93% Weight: 260 lbs 04/20/2018 Blood Pressure 1: 128/68 Code : 8480-6 BMI: 41.7 Code : 53852-0 Heart Rate 1 : 85 bpm Height: 5'7" SpO2: 94% Weight: 266 lbs 02/09/2018 Blood Pressure 1: 118/70 Code : 8480-6 BMI: 42.1 Code : 88333-3 Heart Rate 1 : 58 bpm Height: 5'7" SpO2: 94% Weight: 269 lbs 12/16/2017 Blood Pressure 1: 132/86 Code : 8480-6 BMI: 42.7 Code : 06125-9 Heart Rate 1 : 63 bpm Height: 5'7" SpO2: 94% Weight: 272 lbs 14 oz 08/23/2017 Blood Pressure 1: 150/82 Code : 8480-6 BMI: 42.0 Code : 07943-5 Heart Rate 1 : 66 bpm Height: 5'7" SpO2: 96% Weight: 268 lbs 02/03/2017 Blood Pressure 1: 138/72 Code : 8480-6 BMI: 41.2 Code : 20018-0 Heart Rate 1 : 96 bpm Height: 5'7" SpO2: 97% Weight: 263 lbs 02/02/2017 Blood Pressure 1: 140/90 Code : 8480-6 BMI: 41.2 Code : 84766-4 Heart Rate 1 : 103 bpm Height: 5'7" SpO2: 94% Weight: 263 lbs 11/26/2016 Blood Pressure 1: 152/88 Code : 8480-6 BMI: 41.0 Code : 65765-4 Heart Rate 1 : 71 bpm Height: 5'7" SpO2: 94% Temperature: 37.7 (C) / 99.8 (F) Weight: 262 lbs 10/07/2016 Blood Pressure 1: 148/82 Code : 8480-6 BMI: 41.7 Code : 68402-0 Heart Rate 1 : 58 bpm Height: 5'7" SpO2: 96% Weight: 266 lbs 09/16/2016 Blood Pressure 1: 122/70 Code : 8480-6 BMI: 42.0 Code : 12595-4 Heart Rate 1 : 65 bpm Height: 5'7" SpO2: 96% Weight: 268 lbs 09/07/2016 Blood Pressure 1: 154/60 Code : 8480-6 BMI: 42.3 Code : 79318-5 Heart Rate 1 : 101 bpm Height: 5'7" SpO2: 97% Weight: 270 lbs 04/08/2016 Blood Pressure 1: 128/70 Code : 8480-6 BMI: 41.4 Code : 04201-7 Heart Rate 1 : 62 bpm Height: 5'7" SpO2: 95% Weight: 264 lbs 8 oz 03/05/2016 Blood Pressure 1: 139/72 Code : 8480-6 Blood Pressure 1: 144/78 Code: 8480-6 BMI: 41.9 Code: 81152-1 Heart Rate 1: 71 bpm Height: 5'7" SpO2: 93% Weight: 267 lbs 8 oz 12/04/2015 Blood Pressure 1: 132/70 Code : 8480-6 BMI: 41.3 Code : 27933-5 Heart Rate 1 : 56 bpm Height: 5'7" SpO2: 96% Weight: 264 lbs 11/18/2015 Blood Pressure 1: 138/72 Code : 8480-6 BMI: 41.0 Code : 19056-1 Heart Rate 1 : 85 bpm Height: 5'7" SpO2: 93% Weight: 262 lbs 09/30/2015 Blood Pressure 1: 128/76 Code : 8480-6 BMI: 41.2 Code : 81821-8 Heart Rate 1 : 70 bpm Height: 5'7" SpO2: 93% Weight: 263 lbs 09/09/2015 Blood Pressure 1: 138/80 Code : 8480-6 BMI: 40.3 Code : 67148-8 Heart Rate 1 : 84 bpm Height: 5'7" SpO2: 95% Weight: 257 lbs 08/28/2015 Blood Pressure 1: 122/72 Code : 8480-6 BMI: 39.6 Code : 91494-4 Heart Rate 1 : 75 bpm Height: 5'7" SpO2: 96% Weight: 253 lbs 07/09/2015 Blood Pressure 1: 135/78 Code : 8480-6 Blood Pressure 1: 140/78 Code: 8480-6 BMI: 39.5 Code: 20292-6 Heart Rate 1: 62 bpm Height: 5'7" SpO2: 95% Weight: 252 lbs 03/06/2015 Blood Pressure 1: 142/88 Code : 8480-6 BMI: 39.3 Code : 54059-7 Heart Rate 1 : 65 bpm Height: 5'7" SpO2: 95% Weight: 251 lbs Functional Status No Functional Status data History of Present Illness Symptom Name Status Result Effective Date Notes Location in the throat 08/01/2018 None Quality [...] data Encounters Encounter Performer Location Codes Date 87715 EST. PATIENT, LEVEL III Diagnosis: Essential (primary) hypertension[ICD10: I10] Diagnosis: Cough[ICD10: R05] Diagnosis: Low back pain[ICD10: M54.5] Alis Spring MD, [facility] CPT-4: 02740 08/01/2018 ([id number]) 12111 EST. PATIENT, LEVEL IV Diagnosis: Encounter for immunization[ICD10: Z23] Diagnosis: Essential (primary) hypertension[ICD10: I10] Diagnosis: Chronic atrial fibrillation[ICD10: I48.2] Diagnosis: Major depressive disorder, recurrent, mild[ICD10: F33.0] Scarlett Spring MD, [facility] CPT-4: 97291 04/20/2018 ([id number]) 41596 EST. PATIENT, LEVEL IV Diagnosis: Essential (primary) hypertension[ICD10: I10] Diagnosis: Obstructive sleep apnea (adult) (pediatric)[ICD10: G47.33] Diagnosis: Chronic atrial fibrillation[ICD10: I48.2] Scarlett Spring MD, [facility] CPT-4: 10878 12/16/2017 ([id number]) 98734 EST. PATIENT, LEVEL IV Diagnosis: Essential (primary) hypertension[ICD10: I10] Diagnosis: Chronic atrial fibrillation[ICD10: I48.2] Scarlett Spring MD, [facility] CPT-4: 11201 08/23/2017 ([id number]) [id number] EST. PATIENT, LEVEL IV Diagnosis: Paroxysmal atrial fibrillation[ICD10: I48.0] Diagnosis: Essential (primary) hypertension[ICD10: I10] Scarlett Spring MD, [facility] CPT-4: 83587 02/02/2017 [id number] EST. PATIENT, LEVEL III Diagnosis: Acute laryngopharyngitis[ICD10: J06.0] Diagnosis: Cough[ICD10: R05] Diagnosis: Pleurodynia[ICD10: R07.81] Diagnosis: Other dorsalgia[ICD10: M54.89] Kassandra Spring MD, [facility] [facility]INIC CPT-4 : 14053 11/26/2016 ([id number]) 55779 EST. PATIENT, LEVEL IV Diagnosis: Essential (primary) hypertension[ICD10: I10] Diagnosis: Pain in left knee[ICD10: M25.562] Diagnosis: Low back pain[ICD10: M54.5] Diagnosis: Major depressive disorder, recurrent, moderate[ICD10: F33.1] Scarlett Spring MD, [facility] CPT-4: 63037 10/07/2016 ([id number]) 41822 EST. PATIENT, LEVEL IV Diagnosis: Essential (primary) hypertension[ICD10: I10] Diagnosis: Rash and other nonspecific skin eruption[ICD10: R21] Diagnosis: Major depressive disorder, recurrent, mild[ICD10: F33.0] Scarlett Spring MD, [facility] CPT-4: 40833 09/16/2016 00523 EST. PATIENT, LEVEL IV Diagnosis: Pain in left lower leg[ICD10: M79.662] Diagnosis: Pain in left knee[ICD10: M25.562] Kassandra Spring MD, [facility] CPT -4: 59280 09/07/2016 ([id number]) 10350 EST. PATIENT, LEVEL IV Diagnosis: Encounter for immunization[ICD10: Z23] Diagnosis: Essential (primary) hypertension[ICD10: I10] Diagnosis: Mixed hyperlipidemia[ICD10: E78.2] Scarlett Spring MD, [facility] CPT-4: 19783 04/08/2016 ([id number]) 17092 EST. PATIENT, LEVEL III Diagnosis: Essential (primary) hypertension[ICD10: I10] Diagnosis: Shortness of breath[ICD10: R06.02] Scarlett Spring MD, [facility] CPT-4: 53830 03/05/2016 ([id number]) 26744 EST. PATIENT, LEVEL III Diagnosis: Chronic obstructive pulmonary disease, unspecified[ICD10: J44.9] Scarlett Spring MD, [facility] CPT-4: 61971 12/04/2015 ([id number]) 05672 EST. PATIENT, LEVEL IV Diagnosis: Essential (primary) hypertension[ICD10: I10] Diagnosis: Allergic rhinitis due to pollen[ICD10: J30.1] Scarlett Spring MD [facility] CPT-4: 88027 11/18/2015 ([id number]) 21231 EST. PATIENT, LEVEL IV Diagnosis: Localized edema[ICD10: R60.0] Diagnosis: Dysuria[ICD10: R30.0] Diagnosis: Essential (primary) hypertension[ICD10: I10] Diagnosis: Nausea[ICD10: R11.0] Alis Spring MD, [facility] CPT-4: 83010 09/30/2015 ([id number]) 55798 EST. PATIENT, LEVEL II Diagnosis: Methicillin susceptible Staphylococcus aureus infection as the cause of diseases classified elsewhere[ICD10: B95.61] Diagnosis: Methicillin susceptible Staphylococcus aureus infection, unspecified site[ICD10: A49.01] Alis Spring MD, [facility] CPT-4: 60389 09/09/2015 ([id number]) 56008 EST. PATIENT, LEVEL III Diagnosis: Dermatophytosis, unspecified[ICD10: B35.9] Diagnosis: Rash and other nonspecific skin eruption[ICD10: R21] Scarlett Spring MD [facility] CPT-4: 76459 08/28/2015 ([id number]) 40958 EST. PATIENT, LEVEL IV Diagnosis: Essential (primary) hypertension[ICD10: I10] Diagnosis: Gastro-esophageal reflux disease without esophagitis[ICD10: K21.9] Diagnosis: Other dorsalgia[ICD10: M54.89] Scarlett Spring MD [facility] CPT- 4: 37020 07/09/2015 ([id number]) OFFICE VISIT, NEW - LEVEL 4 Diagnosis: ESSENTIAL HYPERTENSION[ICD9: 401.9] Diagnosis: Osteoporosis[ICD9: 733.00] Diagnosis: Back pain[ICD9: 724.5] Diagnosis: Insomnia[ICD9: 780.52] Diagnosis: ESOPHAGEAL REFLUX[ICD9: 530.81] [facility] CPT- 4: 55577 03/06/2015 Plan of Care Planned Activity Notes Codes Status Date Visit Plan: HTN-onofre induced cough-stop lisinopril -start losartan -monitor blood pressure and follow up in 2 weeks Low back pain-xray lumbar spine and refer for PT 08/01/2018 Appointment: Alis Muhammad WPtel: [phone] [phone] [place] (15 min) Moderate 08/01/2018 Patient Education: Patient Medication Summary Completed 08/01/2018 Patient Education: Back Pain Completed 08/01/2018 Care Plan: X-RAY EXAM L-S SPINE 08/28 VWS LOINC : 94250-4 Pending 08/01/2018 Visit Plan: Hypertension - well [...] shot today. 04/20/2018 [phone] ([facility] min) Moderate 04/20/2018 Patient Education: Patient [...] care surrogate. 02/09/2018 Appointment: Kassandra Argueta WPtel: [facility]6 [facility] [facility] - Annual Wellness Visit 02/09/2018 Patient [...] night. 12/16/2017 Appointment: Scarlett Spring WPtel: [phone] [facility] (15 min) Moderate 12/16/2017 Patient Education: [...] uncontrolled. 08/23/2017 [facility]ment[phone] [facility] (15 min) Moderate 08/23/2017 Patient Education: Patient [...] to cardiology 02/03/2017 Appointment: Kassandra Argueta WPtel: [facility] [place]4 [facility] [facility] - Annual Wellness Visit 02/03/2017 Patient [...] at home. 02/02/2017 [facility]ment[phone] [facility] (15 min) Moderate 02/02/2017 Patient Education: Patient [...] improve. 11/26/2016 [phone] (30 min) Complex 11/26/2016 Patient Education: Patient [...] pain symptoms. 10/07/2016 [facility]ment[phone] [facility] (15 min) Moderate 10/07/2016 Patient Education: Patient Medication Summary Completed 10/07/2016 Patient Education: Obesity Completed 10/07/2016 Patient Education: Hypertension Completed 10/07/2016 Care Plan: VASCULAR STUDY Pending 10/04/2016 Care Plan: X-RAY EXAM OF KNEE 3 [facility] : 59314-3 Pending 10/04/2016 Visit Plan: Hypertension - well [...] paroxetine 09/16/2016 [facility]ointment: [phone] [facility] [place] (15 min) Moderate 09/16/2016 Patient Education: [...] improve. 09/07/2016 App[facility]ment[phone] [facility] [place] (10 min) Simple 09/07/2016 Patient Education: [...] order 04/08/2016 Appointment: [phone] [facility] [place] (15 min) Moderate 04/08/2016 Patient Education: [...] days. 03/05/2016 Appointment: [phone] [facility] (15 min) Moderate 03/05/2016 Patient [...] patient 12/04/2015 Appointment: [phone] [facility] (15 min) Moderate 12/04/2015 Patient [...] allergy spray. 11/18/2015 Appointment: Scarlett Spring WPtel: [facility]5 [facility] (15 min) Moderate 11/18/2015 Patient Education: Patient Medication Summary Completed 11/18/2015 Patient Education: Obesity Completed 11/18/2015 Patient Education: Hypertension Completed 11/18/2015 Appointment: Scarlett Spring WPtel: [address] [place] [address] (15 min) Moderate 11/07/2015 Visit Plan: Hypertension [...] culture report. 08/28/2015 Appointment: Scarlett Spring WPtel: [facility] [place] (15 min) Moderate 08/28/2015 Patient Education: [...] improving. 07/09/2015 Appointment: [phone] [facility] (15 min) Moderate 07/09/2015 Patient [...] improving. 03/06/2015 Appointment: [facility] [phone] [facility] [place] (S) New Patient 03/06/2015 [...] RESOLVED . MSSA of groin and under ecpwqnf-[id number]-hcszoi bactrim and call if rash does not [...]
[2018-10-11 10:15] LABS: ALANINE AMINOTRANSFERASE 15 U/L (0-55); ALKALINE PHOSPHATASE 68 U/L (40-136); BILIRUBIN,TOTAL 0.6 MG/DL (0.1-1.0); BUN/CREATININE RATIO 14; CALCIUM 8.7 MG/DL (8.5-10.1); CARBON DIOXIDE 26 MMOL/L (21-32); CHLORIDE 106 MMOL/L (98-107); CREATININE SERUM 1.11 MG/DL (0.60-1.30); GFR ESTIMATED 48; GLUCOSE 143 MG/DL (70-105); MAGNESIUM 1.8 MG/DL (1.8-2.4); POTASSIUM 3.9 MMOL/L (3.6-5.0); SODIUM 137 MMOL/L (135-145); TOTAL PROTEIN 6.6 GM/DL (6.4-8.2)
--- OUTSIDE RECORDS SUMMARY | 2018-10-11 10:16 | XMS REPORT | CCD ---
Author Author Scarlett Spring Organization Scarlett Spring MD, [facility] Address [address] [place] [address] Phone Care Team Providers Care Toolroom Keeper Name Role Phone PP Unavailable CCM Unavailable Summary Purpose Interface Exchange Insurance Providers Payer name Policy type / Coverage type Covered libertarian ID Effective Begin Date Effective End Date WPS Medicare Part B Medicare Part B [id number] Unknown [employer] Medicare Part B [id number] Unknown Family history Mother Diagnosis Age At Onset Hypertension Unknown Heart Attack Unknown Brother Diagnosis Age At Onset Heart disease Unknown Runs in the family Diagnosis Age At Onset Heart disease Unknown Daughter Diagnosis Age At Onset Heart Attack Unknown Hyperlipidemia Unknown Hypertension Unknown Social History Social History Element Codes Description Effective Dates Number of children Unknown 2 daughter lives in [place], son - does not have contact [address]: 5347119 Quit over 10 years ago 1990 - previously smoked 2ppd x 25 years. 11/18/2015 Marital status Unknown in 201003/06/2015 Employment Unknown Retired was a [employer] 03/06/2015 Allergies, Adverse Reactions, Alerts Substance Reaction [...] Date Stop Date Status Fill Instructions losartan 25 mg tablet RxNorm: 424011 1 Tablet(s) PO daily 201809/29/2018 Active losartan 25 mg tablet RxNorm: 893445 1 Tablet(s) PO daily 201809/29/2018 Active trazodone 50 mg tablet RxNorm: 697814 TAKE ONE TABLET BY MOUTH DAILY 07/25/2018 09/22/2018 Active Ambien 10 mg tablet RxNorm: 761637 Tablet(s) TAKE ONE TABLET BY MOUTH AT BEDTIME 06/24/2018 09/21/2018 Active trazodone 50 mg tablet RxNorm: 677398 TAKE ONE TABLET BY MOUTH DAILY 04/25/2018 07/23/2018 Inactive Ambien 10 mg tablet RxNorm: 544158 Tablet(s) TAKE ONE TABLET BY MOUTH AT BEDTIME 03/23/2018 06/19/2018 Inactive terazosin 5 mg capsule RxNorm: 078084 TAKE ONE CAPSULE BY MOUTH DAILY 03/14/2018 09/09/2018 Active Ambien 10 mg tablet RxNorm: 165397 Tablet(s) TAKE ONE TABLET BY MOUTH AT BEDTIME 01/18/2018 03/17/2018 Inactive trazodone 50 mg tablet RxNorm: 434595 TAKE ONE TABLET BY MOUTH ONCE DAILY 01/10/2018 03/22/2018 Inactive trazodone 50 mg tablet RxNorm: 188521 Tablet(s) TAKE ONE TABLET BY MOUTH ONCE DAILY 01/10/2018 04/24/2018 Inactive Ambien 10 mg tablet RxNorm: 394195 Tablet(s) TAKE ONE TABLET BY MOUTH AT BEDTIME 10/22/2017 01/17/2018 Inactive trazodone 50 mg tablet RxNorm: 042140 TAKE ONE TABLET BY MOUTH ONCE DAILY 10/18/2017 01/09/2018 Inactive omeprazole 20 mg capsule,delayed release RxNorm: 525445 TAKE ONE CAPSULE BY MOUTH ONCE DAILY AT BEDTIME 08/27/2017 No Stop Date Active trazodone 50 mg tablet RxNorm: 735157 TAKE ONE TABLET BY MOUTH ONCE DAILY 08/18/2017 10/17/2017 Inactive Ambien 10 mg tablet RxNorm: 190696 Tablet(s) TAKE ONE TABLET BY MOUTH AT BEDTIME 08/18/2017 03/22/2018 Inactive paroxetine 20 mg tablet RxNorm: 6312192 TAKE ONE TABLET BY MOUTH ONCE DAILY 07/27/2017 No Stop Date Active Ambien 10 mg tablet RxNorm: 613723 Tablet(s) TAKE ONE TABLET BY MOUTH AT BEDTIME 06/23/2017 03/22/2018 Inactive omeprazole 20 mg capsule,delayed release RxNorm: 793629 TAKE ONE CAPSULE BY MOUTH ONCE DAILY AT BEDTIME 04/23/20172017 Inactive trazodone 50 mg tablet RxNorm: 126074 TAKE ONE TABLET BY MOUTH ONCE DAILY 04/13/2017 08/10/2017 Inactive terazosin 5 mg capsule RxNorm: 217901 Capsule(s) TAKE ONE CAPSULE BY MOUTH DAILY 04/08/2017 03/03/2018 Inactive Ambien 10 mg tablet RxNorm: 175584 Tablet(s) TAKE ONE TABLET BY MOUTH AT BEDTIME 02/17/2017 03/22/2018 Inactive Tylenol-Codeine #3 300 mg-30 mg tablet RxNorm: 396084 1 Tablet(s) PO QID as needed 02/02/2017 03/03/2017 Inactive metoprolol succinate ER 50 mg tablet,extended release 24 hr RxNorm: 713340 TAKE ONE TABLET BY MOUTH ONCE DAILY 12/23/2016 02/02/2017 Inactive Zithromax Z-Ted 250 mg tablet RxNorm: 544169 1 Tablet(s) PO UD 11/26/2016 02/16/2017 Inactive trazodone 50 mg tablet RxNorm: 559292 TAKE ONE TABLET BY MOUTH ONCE DAILY 11/12/2016 03/11/2017 Inactive Ambien 10 mg tablet RxNorm: 177615 Tablet(s) TAKE ONE TABLET BY MOUTH AT BEDTIME 10/22/2016 02/15/2017 Inactive paroxetine 20 mg tablet RxNorm: 6706907 1 Tablet(s) PO daily TAKE ONE TABLET BY MOUTH DAILY 09/16/2016 06/12/2017 Inactive meloxicam 7.5 mg tablet RxNorm: 306772 1 Tablet(s) PO daily 11/14/2016 Inactive Protonix 40 mg tablet,delayed release RxNorm: 781484 1 Tablet(s) PO daily 09/16/2016 08/22/2017 Inactive sucralfate 1 gram tablet RxNorm: 160875 1 Tablet(s) PO TID 08/22/2017 Inactive Ambien 10 mg tablet RxNorm: 601889 Tablet(s) TAKE ONE TABLET BY MOUTH AT BEDTIME 08/24/2016 03/22/2018 Inactive trazodone 50 mg tablet RxNorm: 275247 Tablet(s) TAKE ONE TABLET BY MOUTH DAILY 07/29/2016 11/11/2016 Inactive Ambien 10 mg tablet RxNorm: 138933 TAKE ONE TABLET BY MOUTH AT BEDTIME 06/23/2016 03/22/2018 Inactive Ambien 10 mg tablet RxNorm: 418459 Tablet(s) TAKE ONE TABLET BY MOUTH EVERY NIGHT AT BEDTIME 06/22/2016 06/23/2016 Inactive Lasix 40 mg tablet RxNorm: 367379 1 Tablet(s) PO daily as needed for swelling 04/03/2016 09/15/2016 Inactive potassium chloride ER 20 mEq tablet,extended release RxNorm: 720001 1 Tablet(s) PO daily for swelling take with lasix as needed 04/03/2016 09/15/2016 Inactive Ambien 10 mg tablet RxNorm: 014779 Tablet(s) TAKE ONE TABLET BY MOUTH EVERY NIGHT AT BEDTIME 04/03/2016 03/22/2018 Inactive omeprazole 20 mg capsule,delayed release RxNorm: 566822 TAKE ONE CAPSULE BY MOUTH EVERY NIGHT AT BEDTIME 03/31/20162016 Inactive paroxetine 20 mg tablet RxNorm: 2493057 TAKE ONE TABLET BY MOUTH DAILY 03/31/2016 09/15/2016 Inactive trazodone 50 mg tablet RxNorm: 007985 TAKE ONE TABLET BY MOUTH DAILY 03/20/2016 07/28/2016 Inactive terazosin 5 mg capsule RxNorm: 455795 TAKE ONE CAPSULE BY MOUTH DAILY 03/06/2016 10/06/2016 Inactive Ambien 10 mg tablet RxNorm: 703529 Tablet(s) TAKE ONE TABLET BY MOUTH EVERY NIGHT AT BEDTIME 01/17/2016 04/02/2016 Inactive loratadine 10 mg tablet RxNorm: 436580 1 Tablet(s) PO daily 09/15/2016 Inactive mupirocin 2 % topical ointment RxNorm: 496074 1 Application TOP TID 11/18/2015 12/01/2015 Inactive metoprolol succinate ER 50 mg tablet,extended release 24 hr RxNorm: 309300 1 Tablet(s) PO daily 11/18/2015 11/11/2016 Inactive loratadine 10 mg tablet RxNorm: 702751 1 Tablet(s) PO daily 01/14/2016 Inactive Lasix 40 mg tablet RxNorm: 128739 1 Tablet(s) PO daily as needed for swelling 10/30/2015 11/28/2015 Inactive potassium chloride ER 20 mEq tablet,extended release RxNorm: 253226 1 Tablet(s) PO daily for swelling take with lasix as needed 10/30/2015 11/28/2015 Inactive Tylenol-Codeine #3 300 mg-30 mg tablet RxNorm: 792330 1 Tablet(s) PO QID as needed 10/25/2015 02/01/2017 Inactive Ambien 10 mg tablet RxNorm: 415706 Tablet(s) TAKE ONE TABLET BY MOUTH EVERY NIGHT AT BEDTIME 10/18/2015 03/22/2018 Inactive Diflucan 150 mg tablet RxNorm: 987716 1 Tablet(s) PO daily 02/201612/03/2015 Inactive Lasix 20 mg tablet RxNorm: 833145 1 Tablet(s) PO PRN fror swelling 09/27/2015 10/29/2015 Inactive potassium chloride ER 10 mEq capsule,extended release RxNorm: 749194 1 Capsule(s) PO PRN for swelling take with lasix 09/27/2015 10/29/2015 Inactive Bactrim DS 800 mg-160 mg tablet RxNorm: 845148 1 Tablet(s) PO BID 09/02/2015 09/11/2015 Inactive Bactrim DS 800 mg-160 mg tablet RxNorm: 128420 1 Tablet(s) PO BID 09/02/2015 09/01/2015 Inactive nystatin 100,000 unit/gram topical cream RxNorm: 506645 1 Gram(s) TOP TID 08/28/2015 09/26/2015 Inactive Diflucan 150 mg tablet RxNorm: 418038 1 Tablet(s) PO daily 09/201509/06/2015 Inactive betamethasone dipropionate 0.05 % topical ointment RxNorm: 378640 1 Application TOP TID to affected area 08/02/20152016 Inactive nystatin 100,000 unit/gram topical powder RxNorm: 535378 1 Gram(s) TOP QID 07/09/2015 08/01/2015 Inactive Ambien 10 mg tablet RxNorm: 370546 1 Tablet(s) PO QHS 201406/18/2015 Inactive Ambien 10 mg tablet RxNorm: 687637 TAKE ONE TABLET BY MOUTH EVERY NIGHT AT BEDTIME 06/19/2015 09/16/2015 Inactive Vitamin D2 50,000 unit capsule RxNorm: 216874 1 Capsule(s) PO QW 03/07/2015 03/06/2015 Inactive Vitamin D2 50,000 unit capsule RxNorm: 317559 1 Capsule(s) PO QW 03/07/2015 05/05/2015 Inactive terazosin 5 mg capsule RxNorm: 852639 1 Capsule(s) PO daily 06/201502/28/2016 Inactive [SAVINGS FOR NON-COVERED DRUGS -- BIN:[id number], PCN: [id number], Group: XXXXX, ID# [id number], Questions: . THIS IS NOT INSURANCE.] trazodone 50 mg tablet RxNorm: 585032 1 Tablet(s) PO daily 06/201502/28/2016 Inactive paroxetine 20 mg tablet RxNorm: 3937058 1 Tablet(s) PO daily 02/28/2016 Inactive Tylenol-Codeine #3 300 mg-30 mg tablet RxNorm: 470351 1 Tablet(s) PO QID as needed 03/06/2015 07/02/2015 Inactive amlodipine 10 mg tablet RxNorm: 313654 1 Tablet(s) PO daily 06/201511/17/2015 Inactive metoprolol succinate ER 25 mg tablet,extended release 24 hr RxNorm: 890087 1 Tablet(s) PO daily 03/06/2015 11/17/2015 Inactive omeprazole 20 mg capsule,delayed release RxNorm: 890128 1 Capsule(s) PO QHS 03/06/2015 02/28/2016 Inactive omeprazole 20 mg capsule,delayed release RxNorm: 588596 1 Capsule(s) PO QHS 01/31/2015 01/30/2015 Inactive omeprazole 20 mg capsule,delayed release RxNorm: 163718 1 Capsule(s) PO QHS 01/31/2015 01/30/2015 Inactive omeprazole 20 mg capsule,delayed release RxNorm: 024010 1 Capsule(s) PO QHS 01/31/2015 03/05/2015 Inactive Ambien 10 mg tablet RxNorm: 902651 1 Tablet(s) PO QHS 201404/21/2015 Inactive paroxetine 20 mg tablet RxNorm: 410230 1 Tablet(s) PO daily 08/201412/24/2014 Inactive Ambien 10 mg tablet RxNorm: 999629 1 Tablet(s) PO QHS 201412/24/2014 Inactive paroxetine 20 mg tablet RxNorm: 842440 1 Tablet(s) PO daily 08/201403/05/2015 Inactive terazosin 5 mg capsule RxNorm: 255578 1 Capsule(s) PO daily 07/201403/05/2015 Inactive [SAVINGS FOR NON-COVERED DRUGS -- BIN:112489, PCN: ASPROD1, Group: XXXXX, ID# [id number], Questions: . THIS IS NOT INSURANCE.] terazosin 5 mg capsule RxNorm: 813062 1 Capsule(s) PO daily 07/201411/22/2014 Inactive Lasix 20 mg tablet RxNorm: 175923 1 Tablet(s) PO daily No Start Date Active K-Dur 10 mEq tablet,extended release RxNorm: 680635 1 Tablet(s) PO daily No Start Date Active hydrochlorothiazide 25 mg tablet RxNorm: 690972 1 Tablet(s) PO daily No Start Date Active Eliquis 5 mg tablet RxNorm: 3812193 1 Tablet(s) PO BID No Start Date Active Vitamin D3 2,000 unit tablet RxNorm: 911555 1 Tablet(s) PO daily No Start Date Active amiodarone 200 mg tablet RxNorm: 922725 1 Tablet(s) PO BID No Start Date Active Zetia 10 mg tablet RxNorm: 173664 1 Tablet(s) PO daily No Start Date Active Lipitor 80 mg tablet RxNorm: 940977 1/2 Tablet(s) PO daily No Start Date Active metoprolol succinate ER 25 mg tablet,extended release 24 hr RxNorm: 216935 1 Tablet(s) PO daily No Start Date 2014 Inactive Entresto 49 mg-51 mg tablet RxNorm: 9991971 1 Tablet(s) PO BID No Start Date 04/19/2018 Inactive sotalol 80 mg tablet RxNorm: 2860023 1 Tablet(s) PO BID No Start Date 04/19/2018 Inactive betamethasone dipropionate 0.05 % topical ointment RxNorm: 912992 1 Application TOP TID to affected area No Start Date 01/2016 Inactive trazodone 50 mg tablet RxNorm: 838991 1 Tablet(s) PO daily No Start Date 03/05/2015 Inactive potassium chloride ER 10 mEq capsule,extended release RxNorm: 606659 1 Capsule(s) PO PRN for swelling take with lasix No Start Date 09/26/2015 Inactive amlodipine 10 mg tablet RxNorm: 846577 1 Tablet(s) PO daily No Start Date 03/05/2015 Inactive isosorbide mononitrate ER 30 mg tablet,extended release 24 hr RxNorm: 803204 1 Tablet(s) PO daily No Start Date 2017 Inactive aspirin 81 mg tablet,delayed release RxNorm: 190725 1 Tablet(s) PO daily No Start Date 02/02/2017 Inactive Lasix 20 mg tablet RxNorm: 929996 1 Tablet(s) PO PRN fror swelling No Start Date 09/26/2015 Inactive lisinopril 5 mg tablet RxNorm: 103455 1 Tablet(s) PO daily No Start Date 07/31/2018 Inactive Crestor 40 mg tablet RxNorm: 647857 1 Tablet(s) PO daily No Start Date 09/15/2016 Inactive metoprolol succinate ER 100 mg tablet,extended release 24 hr RxNorm: 977422 1 Tablet(s) PO daily No Start Date [...] Item Item Code Result Date Comp Metabolic Rtc585 NA 140 mEq/L 08/01/2018 Comp Metabolic Wlr007 K 4.2 mEq/L 08/01/2018 Comp Metabolic Xto288 CL 102 mEq/L 08/01/2018 Comp Metabolic Jay144 CO2 27.0 mEq/L 08/01/2018 Comp Metabolic Iot412 ANION GAP 15 08/01/2018 Comp Metabolic Crh858 GLUCOSE 107 mg/dL 08/01/2018 Comp Metabolic Igj864 Creat 1.0 mg/dL 08/01/2018 Comp Metabolic Mmo767 eGFR 58 ml/min/1.73m2 08/01/2018 Comp Metabolic Wqp386 BUN 10 mg/dL 08/01/2018 Comp Metabolic Eht222 B/C Ratio 10.0 Ratio 08/01/2018 Comp Metabolic Nwq239 CALCIUM 8.9 mg/dL 08/01/2018 Comp Metabolic Lqn893 ALK PHOS 68 U/L 08/01/2018 Comp Metabolic Wgd679 AST(SGOT) 18 U/L 08/01/2018 Comp Metabolic Ocg355 ALT(SGPT) 14 U/L 08/01/2018 Comp Metabolic Lwe363 BILI T 0.5 mg/dL 08/01/2018 Comp Metabolic Xam734 ALBUMIN 4.0 g/dL 08/01/2018 Comp Metabolic Yqk149 TPRO 6.3 g/dL 08/01/2018 Comp Metabolic Lhk461 GLOB 2.3 g/dL 08/01/2018 Comp Metabolic Lnr800 A/G Ratio 1.7 Ratio 08/01/2018 Comp Metabolic Ilu328 Osmo 279 mOsmo 08/01/2018 Tsh Ord6 TSH [...] 19.8 % 08/01/2018 Cbc With Differential Ord2 [place]% 9.8 % 08/01/2018 Cbc With Differential Ord2 [...] 0.79 K/ul 08/01/2018 Cbc With Differential Ord2 [place] ABS# 0.4 K/ul 08/01/2018 Cbc With Differential Ord2 Eos ABS# 0.1 K/ul 08/01/2018 Cbc With Differential Ord2 Baso ABS# 0.0 K/ul 08/01/2018 Lipid Ord30 CHOL 234 mg/dL 08/01/2018 Lipid Ord30 HDL 69.0 mg/dl 08/01/2018 Lipid Ord30 TRIG 57 mg/dL 08/01/2018 Lipid Ord30 LDL 154 mg/dL 08/01/2018 Lipid Ord30 C/HDL 3.4 Ratio 08/01/2018 Comp Metabolic Phd654 NA 137 mEq/L 09/30/2015 Comp Metabolic Amc525 K 4.5 mEq/L 09/30/2015 Comp Metabolic Tiz079 CL 102 mEq/L 09/30/2015 Comp Metabolic Wpx470 CO2 26.0 mEq/L 09/30/2015 Comp Metabolic Ktt659 ANION GAP 14 09/30/2015 Comp Metabolic Wpp622 GLUCOSE 89 mg/dL 09/30/2015 Comp Metabolic Pii538 Creat 0.8 mg/dL 09/30/2015 Comp Metabolic Fgz197 eGFR 79 ml/min/1.73m2 09/30/2015 Comp Metabolic Zpd700 BUN 14 mg/dL 09/30/2015 Comp Metabolic Lwv993 B/C Ratio 18.2 Ratio 09/30/2015 Comp Metabolic Nst540 CALCIUM 8.9 mg/dL 09/30/2015 Comp Metabolic Ihm733 ALK PHOS 65 U/L 09/30/2015 Comp Metabolic Zxa158 AST(SGOT) 26 U/L 09/30/2015 Comp Metabolic Mku027 ALT(SGPT) 18 U/L 09/30/2015 Comp Metabolic Qgz907 BILI T 0.6 mg/dL 09/30/2015 Comp Metabolic Rjb323 ALBUMIN 3.8 g/dL 09/30/2015 Comp Metabolic Fgl261 TPRO 6.6 g/dL 09/30/2015 Comp Metabolic Ail609 GLOB 2.8 g/dL 09/30/2015 Comp Metabolic Vxy460 A/G Ratio 1.4 Ratio 09/30/2015 Comp Metabolic Kvf565 Osmo 274 mOsmo 09/30/2015 Cbc With Differential [...] 27.7 pg 09/30/2015 Cbc With Differential Ord2 [place]% 10.7 % 09/30/2015 Cbc With Differential Ord2 [...] 1.10 K/ul 09/30/2015 Cbc With Differential Ord2 [place] ABS# 0.6 K/ul 09/30/2015 Cbc With Differential Ord2 Eos ABS# 0.2 K/ul 09/30/2015 Cbc With Differential Ord2 Baso ABS# 0.0 K/ul 09/30/2015 Cbc With Differential Ord2 New Analyzer Notice Please note new ref ranges starting 08-07-2015 due to implemntation of new five part differential hematolgy analyzer. 09/30/2015 Tsh Ord6 hTSH II 1.05 uIU/mL 03/06/2015 Comp Metabolic Kug799 NA 137 mEq/L 03/06/2015 Comp Metabolic Tnr111 K 4.3 mEq/L 03/06/2015 Comp Metabolic Ilc202 CL 104 mEq/L 03/06/2015 Comp Metabolic Kfb762 CO2 28.0 mEq/L 03/06/2015 Comp Metabolic Duq494 ANION GAP 9 03/06/2015 Comp Metabolic Vlu177 GLUCOSE 93 mg/dL 03/06/2015 Comp Metabolic Fef305 Creat 0.8 mg/dL 03/06/2015 Comp Metabolic Ssh862 eGFR 81 ml/min/1.73m2 03/06/2015 Comp Metabolic Fmv531 BUN 12 mg/dL 03/06/2015 Comp Metabolic Hkn494 B/C Ratio 16.0 Ratio 03/06/2015 Comp Metabolic Pmd201 CALCIUM 8.9 mg/dL 03/06/2015 Comp Metabolic Tnm978 ALK PHOS 56 U/L 03/06/2015 Comp Metabolic Otg052 AST(SGOT) 22 U/L 03/06/2015 Comp Metabolic Arq402 ALT(SGPT) 15 U/L 03/06/2015 Comp Metabolic Boj051 BILI T 0.4 mg/dL 03/06/2015 Comp Metabolic Ite571 ALBUMIN 4.0 g/dL 03/06/2015 Comp Metabolic Jov016 TPRO 6.5 g/dL 03/06/2015 Comp Metabolic Shi959 GLOB 2.5 g/dL 03/06/2015 Comp Metabolic Gfa947 A/G Ratio 1.6 Ratio 03/06/2015 Comp Metabolic Mof059 Osmo 273 mOsmo 03/06/2015 Vitamin D 25 Oh Xyq9561 VITAMIN D, 25 HYDROXY 28.14 ng/mL Cbc [...] Formatting Model/CDA Sections, Assigned to/Amparo Mims CPT-4: 39055Tfloznp 04/20/2018 PPPS, SUBSEQ VISIT CPT -4: G0439 02/09/2018 PPPS, SUBSEQ VISIT CPT -4: G0439 02/03/2017 ADMIN INFLUENZA VIRUS VAC CPT-4: G0008 04/08/2016 ADMIN PNEUMOCOCCAL VACCINE SNOMED CT: 86366017 CPT-4: G0009 04/08/2016 PNEUMOCOCCAL VACC [address]: 28099620 CPT-4: 45953 04/08/2016 FLU VACC PRSV FREE INC ANTIG CPT-4: 41269 04/08/2016 Vital Signs Date Vital 08/01/2018 Blood Pressure 1: 130/70 Code : 8480-6 BMI: 40.7 Code : 57323-3 Heart Rate 1 : 80 bpm Height: 5'7" SpO2: 93% Weight: 260 lbs 04/20/2018 Blood Pressure 1: 128/68 Code : 8480-6 BMI: 41.7 Code : 30976-8 Heart Rate 1 : 85 bpm Height: 5'7" SpO2: 94% Weight: 266 lbs 02/09/2018 Blood Pressure 1: 118/70 Code : 8480-6 BMI: 42.1 Code : 08482-9 Heart Rate 1 : 58 bpm Height: 5'7" SpO2: 94% Weight: 269 lbs 12/16/2017 Blood Pressure 1: 132/86 Code : 8480-6 BMI: 42.7 Code : 33315-5 Heart Rate 1 : 63 bpm Height: 5'7" SpO2: 94% Weight: 272 lbs 14 oz 08/23/2017 Blood Pressure 1: 150/82 Code : 8480-6 BMI: 42.0 Code : 62457-6 Heart Rate 1 : 66 bpm Height: 5'7" SpO2: 96% Weight: 268 lbs 02/03/2017 Blood Pressure 1: 138/72 Code : 8480-6 BMI: 41.2 Code : 21180-8 Heart Rate 1 : 96 bpm Height: 5'7" SpO2: 97% Weight: 263 lbs 02/02/2017 Blood Pressure 1: 140/90 Code : 8480-6 BMI: 41.2 Code : 78147-5 Heart Rate 1 : 103 bpm Height: 5'7" SpO2: 94% Weight: 263 lbs 11/26/2016 Blood Pressure 1: 152/88 Code : 8480-6 BMI: 41.0 Code : 30251-7 Heart Rate 1 : 71 bpm Height: 5'7" SpO2: 94% Temperature: 37.7 (C) / 99.8 (F) Weight: 262 lbs 10/07/2016 Blood Pressure 1: 148/82 Code : 8480-6 BMI: 41.7 Code : 82334-5 Heart Rate 1 : 58 bpm Height: 5'7" SpO2: 96% Weight: 266 lbs 09/16/2016 Blood Pressure 1: 122/70 Code : 8480-6 BMI: 42.0 Code : 43778-4 Heart Rate 1 : 65 bpm Height: 5'7" SpO2: 96% Weight: 268 lbs 09/07/2016 Blood Pressure 1: 154/60 Code : 8480-6 BMI: 42.3 Code : 32218-6 Heart Rate 1 : 101 bpm Height: 5'7" SpO2: 97% Weight: 270 lbs 04/08/2016 Blood Pressure 1: 128/70 Code : 8480-6 BMI: 41.4 Code : 01472-2 Heart Rate 1 : 62 bpm Height: 5'7" SpO2: 95% Weight: 264 lbs 8 oz 03/05/2016 Blood Pressure 1: 144/78 Code : 8480-6 Blood Pressure 1: 139/72 Code: 8480-6 BMI: 41.9 Code: 80277-5 Heart Rate 1: 71 bpm Height: 5'7" SpO2: 93% Weight: 267 lbs 8 oz 12/04/2015 Blood Pressure 1: 132/70 Code : 8480-6 BMI: 41.3 Code : 99148-6 Heart Rate 1 : 56 bpm Height: 5'7" SpO2: 96% Weight: 264 lbs 11/18/2015 Blood Pressure 1: 138/72 Code : 8480-6 BMI: 41.0 Code : 63678-5 Heart Rate 1 : 85 bpm Height: 5'7" SpO2: 93% Weight: 262 lbs 09/30/2015 Blood Pressure 1: 128/76 Code : 8480-6 BMI: 41.2 Code : 86753-4 Heart Rate 1 : 70 bpm Height: 5'7" SpO2: 93% Weight: 263 lbs 09/09/2015 Blood Pressure 1: 138/80 Code : 8480-6 BMI: 40.3 Code : 06776-6 Heart Rate 1 : 84 bpm Height: 5'7" SpO2: 95% Weight: 257 lbs 08/28/2015 Blood Pressure 1: 122/72 Code : 8480-6 BMI: 39.6 Code : 59922-1 Heart Rate 1 : 75 bpm Height: 5'7" SpO2: 96% Weight: 253 lbs 07/09/2015 Blood Pressure 1: 135/78 Code : 8480-6 Blood Pressure 1: 140/78 Code: 8480-6 BMI: 39.5 Code: 60937-9 Heart Rate 1: 62 bpm Height: 5'7" SpO2: 95% Weight: 252 lbs 03/06/2015 Blood Pressure 1: 142/88 Code : 8480-6 BMI: 39.3 Code : 28228-3 Heart Rate 1 : 65 bpm Height: [...] data Encounters Encounter Performer Location Codes Date ([id number]) 15893 EST. PATIENT, LEVEL III Diagnosis: Essential (primary) hypertension[ICD10: I10] Diagnosis: Cough[ICD10: R05] Diagnosis: Low back pain[ICD10: M54.5] Alis Spring MD, [facility] CPT-4: 23201 08/01/2018 ([id number]) 01593 EST. PATIENT, LEVEL IV Diagnosis: Encounter for immunization[ICD10: Z23] Diagnosis: Essential (primary) hypertension[ICD10: I10] Diagnosis: Chronic atrial fibrillation[ICD10: I48.2] Diagnosis: Major depressive disorder, recurrent, mild[ICD10: F33.0] Scarlett Spring MD, [facility] CPT-4: 12124 04/20/2018 ([id number]) 87935 EST. PATIENT, LEVEL IV Diagnosis: Essential (primary) hypertension[ICD10: I10] Diagnosis: Obstructive sleep apnea (adult) (pediatric)[ICD10: G47.33] Diagnosis: Chronic atrial fibrillation[ICD10: I48.2] Scarlett Spring MD, [facility] CPT-4: 48551 12/16/2017 [id number]) 40704 EST. PATIENT, LEVEL IV Diagnosis: Essential (primary) hypertension[ICD10: I10] Diagnosis: Chronic atrial fibrillation[ICD10: I48.2] Scarlett Spring MD, [facility] CPT-4: 35045 08/23/2017 ([id number]) 10424 EST. PATIENT, LEVEL IV Diagnosis: Paroxysmal atrial fibrillation[ICD10: I48.0] Diagnosis: Essential (primary) hypertension[ICD10: I10] Scarlett Spring MD, [facility] CPT-4: 13286 02/02/2017 [id number] EST. PATIENT, LEVEL III Diagnosis: Acute laryngopharyngitis[ICD10: J06.0] Diagnosis: Cough[ICD10: R05] Diagnosis: Pleurodynia[ICD10: R07.81] Diagnosis: Other dorsalgia[ICD10: M54.89] Kassandra Spring MD, [facility] CPT-4 : 71369 11/26/2016 ([id number]) 18315 EST. PATIENT, LEVEL IV Diagnosis: Essential (primary) hypertension[ICD10: I10] Diagnosis: Pain in left knee[ICD10: M25.562] Diagnosis: Low back pain[ICD10: M54.5] Diagnosis: Major depressive disorder, recurrent, moderate[ICD10: F33.1] Scarlett Spring MD, [facility] CPT-4: 32013 10/07/2016 ([id number]) 11434 EST. PATIENT, LEVEL IV Diagnosis: Essential (primary) hypertension[ICD10: I10] Diagnosis: Rash and other nonspecific skin eruption[ICD10: R21] Diagnosis: Major depressive disorder, recurrent, mild[ICD10: F33.0] Scarlett Spring MD, [facility] CPT-4: 13738 09/16/2016 [id number] EST. PATIENT, LEVEL IV Diagnosis: Pain in left lower leg[ICD10: M79.662] Diagnosis: Pain in left knee[ICD10: M25.562] Kassandra Spring MD, [facility] CPT -4: 69639 09/07/2016 ([id number]) 05276 EST. PATIENT, LEVEL IV Diagnosis: Encounter for immunization[ICD10: Z23] Diagnosis: Essential (primary) hypertension[ICD10: I10] Diagnosis: Mixed hyperlipidemia[ICD10: E78.2] Scarlett Spring MD, [facility] CPT-4: 18477 04/08/2016 ([id number]) 01991 EST. PATIENT, LEVEL III Diagnosis: Essential (primary) hypertension[ICD10: I10] Diagnosis: Shortness of breath[ICD10: R06.02] Scarlett Spring MD, [facility] CPT-4: 87653 03/05/2016 ([id number]) 28221 EST. PATIENT, LEVEL III Diagnosis: Chronic obstructive pulmonary disease, unspecified[ICD10: J44.9] Scarlett Spring MD, [facility] CPT-4: 16737 12/04/2015 ([id number]) 15298 EST. PATIENT, LEVEL IV Diagnosis: Essential (primary) hypertension[ICD10: I10] Diagnosis: Allergic rhinitis due to pollen[ICD10: J30.1] Scarlett Spring MD [facility] CPT-4: 24925 11/18/2015 ([id number]) 41659 EST. PATIENT, LEVEL IV Diagnosis: Localized edema[ICD10: R60.0] Diagnosis: Dysuria[ICD10: R30.0] Diagnosis: Essential (primary) hypertension[ICD10: I10] Diagnosis: Nausea[ICD10: R11.0] Alis Spring MD, [facility] CPT-4: 75736 09/30/2015 ([id number]) 14650 EST. PATIENT, LEVEL II Diagnosis: Methicillin susceptible Staphylococcus aureus infection as the cause of diseases classified elsewhere[ICD10: B95.61] Diagnosis: Methicillin susceptible Staphylococcus aureus infection, unspecified site[ICD10: A49.01] Alis Spring MD [facility] CPT-4: 84723 09/09/2015 ([id number]) 15922 EST. PATIENT, LEVEL III Diagnosis: Dermatophytosis, unspecified[ICD10: B35.9] Diagnosis: Rash and other nonspecific skin eruption[ICD10: R21] Scarlett Spring MD, [facility] CPT-4: 45500 08/28/2015 ([id number]) 96041 EST. PATIENT, LEVEL IV Diagnosis: Essential (primary) hypertension[ICD10: I10] Diagnosis: Gastro-esophageal reflux disease without esophagitis[ICD10: K21.9] Diagnosis: Other dorsalgia[ICD10: M54.89] Scarlett Spring MD, [facility] CPT- 4: 30849 07/09/2015 ([id number]) OFFICE VISIT, NEW - LEVEL 4 Diagnosis: ESSENTIAL HYPERTENSION[ICD9: 401.9] Diagnosis: Osteoporosis[ICD9: 733.00] Diagnosis: Back pain[ICD9: 724.5] Diagnosis: Insomnia[ICD9: 780.52] Diagnosis: ESOPHAGEAL REFLUX[ICD9: 530.81] Scarlett Spring MD, [facility] CPT- 4: 99489 03/06/2015 Plan of Care Planned Activity Notes Codes Status Date Visit Plan: HTN-onofre induced cough-stop lisinopril -start losartan -monitor blood pressure and follow up in 2 weeks Low back pain-xray lumbar spine and refer for PT 08/01/2018 Patient Education: Patient Medication Summary Completed 08/01/2018 Patient Education: Back Pain Completed 08/01/2018 Care Plan: X-RAY EXAM L-S SPINE 2/ VWS LOINC : 40722-9 Pending 08/01/2018 Visit Plan: Hypertension - well [...] shot today. 04/20/2018 Appointment: Scarlett Spring WPtel: [address] [place], [place] [phone] (15 min) Moderate 04/20/2018 Patient Education: Patient [...] surrogate. 02/09/2018 Appointment: Kassandra Argueta WPtel: [phone] [facility] [place] [address] - Annual Wellness Visit 02/09/2018 Patient Education: [...] night. 12/16/2017 Appointment: Scarlett Spring WPtel: [address] [facility] [address] (15 min) Moderate 12/16/2017 Patient Education: Patient [...] uncontrolled. 08/23/2017 Appointment: Scarlett Spring WPtel: [phone] [facility] [address] (15 min) Moderate 08/23/2017 Patient Education: Patient [...] to cardiology 02/03/2017 Appointment: [phone] [facility] [facility] - Annual Wellness Visit [...] at home. 02/02/2017 Appointment: Scarlett Spring [facility]Ptel[facility] [phone] [facility] (15 min) Moderate 02/02/2017 Patient Education: [...] not improve. 11/26/2016 Appointment: [phone] [facility] (30 min) Complex 11/26/2016 Patient [...] pain symptoms. 10/07/2016 Appointment: Scarlett Spring [facility]Ptel[facility] [phone] [facility] (15 min) Moderate 10/07/2016 Patient Education: Patient Medication Summary Completed 10/07/2016 Patient Education: Obesity Completed 10/07/2016 Patient Education: Hypertension Completed 10/07/2016 Care Plan: VASCULAR STUDY Pending 10/04/2016 Care Plan: X-RAY EXAM OF KNEE 3 LOINC : 52354-1 Pending 10/04/2016 Visit Plan: Hypertension - well [...] paroxetine 09/16/2016 Appointment: Scarlett Spring WPtel[facility] [phone] [facility] [place] (15 min) Moderate 09/16/2016 Patient [...] improve. 09/07/2016 Appointment: [facility] Argueta [facility]Ptel[phone] [facility] [place] (10 min) Simple 09/07/2016 [...] mammogram order 04/08/2016 Appointment: Scarlett Spring WPtel: [phone] [facility] [place] (15 min) Moderate 04/08/2016 Patient [...] days. 03/05/2016 Appointment: Scarlett Spring WPtel[facility] [phone] [facility] (15 min) Moderate 03/05/2016 Patient Education: Patient Medication Summary Completed 03/05/2016 Visit Plan: COPD - chronic problem for this patient. We have reviewed chronic treatment strategy, symptom control, and plans for acute exacerbations. No changes today to the current treatment plan as the patient is stable, monitor for acute changes. anoro samples given to the patient 12/04/2015 Appointment: Scarlett Spring WPtel[facility] [phone] [facility] (15 min) Moderate 12/04/2015 Patient Education: [...] spray. 11/18/2015 Appointment: Scarlett Spring WPtel: [phone] [facility] [place] (15 min) Moderate 11/18/2015 Patient Education: Patient Medication Summary Completed 11/18/2015 Patient Education: Obesity Completed 11/18/2015 Patient Education: Hypertension Completed 11/18/2015 Appointment: Scarlett Spring WPtel: [facility] [address] (15 min) Moderate 11/07/2015 Visit Plan: Hypertension [...] culture report. 08/28/2015 Appointment: Scarlett Spring WPtel: [facility]5 [facility] [address] (15 min) Moderate 08/28/2015 Patient Education: Patient [...] not improving. 07/09/2015 Appointment: Scarlett Spring WPtel: [phone] [facility] [place] (15 min) Moderate 07/09/2015 Patient [...] not improving. 03/06/2015 Appointment: Scarlett Spring WPtel: [phone] [facility] [place] (S) New Patient 03/06/2015 Patient [...] RESOLVED . MSSA of groin and under [id number]-[id number] bactrim and call if rash does not [...]
--- OUTSIDE RECORDS SUMMARY | 2018-10-11 10:19 | XMS REPORT | CCD ---
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 Name Role Phone PP Unavailable CCM Unavailable Summary Purpose Interface Exchange Insurance Providers Payer name Policy type / Coverage type Covered republican ID Effective Begin Date Effective End Date WPS Medicare Part B Medicare Part B [id number] Unknown MARION [employer] Medicare Part B [id number] Unknown Family history Mother Diagnosis Age At Onset Hypertension Unknown Heart Attack Unknown Brother Diagnosis Age At Onset Heart disease Unknown Runs in the family Diagnosis Age At Onset Heart disease Unknown Daughter Diagnosis Age At Onset Heart Attack Unknown Hyperlipidemia Unknown Hypertension Unknown Social History Social History Element Codes Description Effective Dates Number of children Unknown 2 daughter lives in [place], son - does not have contact [address]: 1917026 Quit over 10 years ago 1990 - previously smoked 2ppd x 25 years. 11/18/2015 Marital status Unknown in 201003/06/2015 Employment Unknown Retired was a [employer] 03/06/2015 Allergies, Adverse Reactions, Alerts Substance Reaction [...] Fill Instructions losartan 25 mg tablet RxNorm: 491527 1 Tablet(s) PO daily 201809/29/2018 Active losartan 25 mg tablet RxNorm: 112492 1 Tablet(s) PO daily 201809/29/2018 Active trazodone 50 mg tablet RxNorm: 808366 TAKE ONE TABLET BY MOUTH DAILY 07/25/2018 09/22/2018 Active Ambien 10 mg tablet RxNorm: 873093 Tablet(s) TAKE ONE TABLET BY MOUTH AT BEDTIME 06/24/2018 09/21/2018 Active trazodone 50 mg tablet RxNorm: 700331 TAKE ONE TABLET BY MOUTH DAILY 04/25/2018 07/23/2018 Inactive Ambien 10 mg tablet RxNorm: 476825 Tablet(s) TAKE ONE TABLET BY MOUTH AT BEDTIME 03/23/2018 06/19/2018 Inactive terazosin 5 mg capsule RxNorm: 220908 TAKE ONE CAPSULE BY MOUTH DAILY 03/14/2018 09/09/2018 Active Ambien 10 mg tablet RxNorm: 590625 Tablet(s) TAKE ONE TABLET BY MOUTH AT BEDTIME 01/18/2018 03/17/2018 Inactive trazodone 50 mg tablet RxNorm: 149827 TAKE ONE TABLET BY MOUTH ONCE DAILY 01/10/2018 03/22/2018 Inactive trazodone 50 mg tablet RxNorm: 565026 Tablet(s) TAKE ONE TABLET BY MOUTH ONCE DAILY 01/10/2018 04/24/2018 Inactive Ambien 10 mg tablet RxNorm: 586903 Tablet(s) TAKE ONE TABLET BY MOUTH AT BEDTIME 10/22/2017 01/17/2018 Inactive trazodone 50 mg tablet RxNorm: 313837 TAKE ONE TABLET BY MOUTH ONCE DAILY 10/18/2017 01/09/2018 Inactive omeprazole 20 mg capsule,delayed release RxNorm: 823322 TAKE ONE CAPSULE BY MOUTH ONCE DAILY AT BEDTIME 08/27/2017 No Stop Date Active trazodone 50 mg tablet RxNorm: 176055 TAKE ONE TABLET BY MOUTH ONCE DAILY 08/18/2017 10/17/2017 Inactive Ambien 10 mg tablet RxNorm: 362185 Tablet(s) TAKE ONE TABLET BY MOUTH AT BEDTIME 08/18/2017 03/22/2018 Inactive paroxetine 20 mg tablet RxNorm: 5423648 TAKE ONE TABLET BY MOUTH ONCE DAILY 07/27/2017 No Stop Date Active Ambien 10 mg tablet RxNorm: 401488 Tablet(s) TAKE ONE TABLET BY MOUTH AT BEDTIME 06/23/2017 03/22/2018 Inactive omeprazole 20 mg capsule,delayed release RxNorm: 349484 TAKE ONE CAPSULE BY MOUTH ONCE DAILY AT BEDTIME 04/23/20172017 Inactive trazodone 50 mg tablet RxNorm: 009688 TAKE ONE TABLET BY MOUTH ONCE DAILY 04/13/2017 08/10/2017 Inactive terazosin 5 mg capsule RxNorm: 483766 Capsule(s) TAKE ONE CAPSULE BY MOUTH DAILY 04/08/2017 03/03/2018 Inactive Ambien 10 mg tablet RxNorm: 125420 Tablet(s) TAKE ONE TABLET BY MOUTH AT BEDTIME 02/17/2017 03/22/2018 Inactive Tylenol-Codeine #3 300 mg-30 mg tablet RxNorm: 050678 1 Tablet(s) PO QID as needed 02/02/2017 03/03/2017 Inactive metoprolol succinate ER 50 mg tablet,extended release 24 hr RxNorm: 994722 TAKE ONE TABLET BY MOUTH ONCE DAILY 12/23/2016 02/02/2017 Inactive Zithromax Z-Ted 250 mg tablet RxNorm: 612097 1 Tablet(s) PO UD 11/26/2016 02/16/2017 Inactive trazodone 50 mg tablet RxNorm: 722282 TAKE ONE TABLET BY MOUTH ONCE DAILY 11/12/2016 03/11/2017 Inactive Ambien 10 mg tablet RxNorm: 448820 Tablet(s) TAKE ONE TABLET BY MOUTH AT BEDTIME 10/22/2016 02/15/2017 Inactive paroxetine 20 mg tablet RxNorm: 7096208 1 Tablet(s) PO daily TAKE ONE TABLET BY MOUTH DAILY 09/16/2016 06/12/2017 Inactive meloxicam 7.5 mg tablet RxNorm: 051520 1 Tablet(s) PO daily 11/14/2016 Inactive Protonix 40 mg tablet,delayed release RxNorm: 261748 1 Tablet(s) PO daily 09/16/2016 08/22/2017 Inactive sucralfate 1 gram tablet RxNorm: 915726 1 Tablet(s) PO TID 08/22/2017 Inactive Ambien 10 mg tablet RxNorm: 192343 Tablet(s) TAKE ONE TABLET BY MOUTH AT BEDTIME 08/24/2016 03/22/2018 Inactive trazodone 50 mg tablet RxNorm: 161749 Tablet(s) TAKE ONE TABLET BY MOUTH DAILY 07/29/2016 11/11/2016 Inactive Ambien 10 mg tablet RxNorm: 112535 TAKE ONE TABLET BY MOUTH AT BEDTIME 06/23/2016 03/22/2018 Inactive Ambien 10 mg tablet RxNorm: 453053 Tablet(s) TAKE ONE TABLET BY MOUTH EVERY NIGHT AT BEDTIME 06/22/2016 06/23/2016 Inactive Lasix 40 mg tablet RxNorm: 342659 1 Tablet(s) PO daily as needed for swelling 04/03/2016 09/15/2016 Inactive potassium chloride ER 20 mEq tablet,extended release RxNorm: 846713 1 Tablet(s) PO daily for swelling take with lasix as needed 04/03/2016 09/15/2016 Inactive Ambien 10 mg tablet RxNorm: 567495 Tablet(s) TAKE ONE TABLET BY MOUTH EVERY NIGHT AT BEDTIME 04/03/2016 03/22/2018 Inactive omeprazole 20 mg capsule,delayed release RxNorm: 228084 TAKE ONE CAPSULE BY MOUTH EVERY NIGHT AT BEDTIME 03/31/20162016 Inactive paroxetine 20 mg tablet RxNorm: 0996343 TAKE ONE TABLET BY MOUTH DAILY 03/31/2016 09/15/2016 Inactive trazodone 50 mg tablet RxNorm: 915717 TAKE ONE TABLET BY MOUTH DAILY 03/20/2016 07/28/2016 Inactive terazosin 5 mg capsule RxNorm: 277401 TAKE ONE CAPSULE BY MOUTH DAILY 03/06/2016 10/06/2016 Inactive Ambien 10 mg tablet RxNorm: 227905 Tablet(s) TAKE ONE TABLET BY MOUTH EVERY NIGHT AT BEDTIME 01/17/2016 04/02/2016 Inactive loratadine 10 mg tablet RxNorm: 285406 1 Tablet(s) PO daily 09/15/2016 Inactive mupirocin 2 % topical ointment RxNorm: 188180 1 Application TOP TID 11/18/2015 12/01/2015 Inactive metoprolol succinate ER 50 mg tablet,extended release 24 hr RxNorm: 859089 1 Tablet(s) PO daily 11/18/2015 11/11/2016 Inactive loratadine 10 mg tablet RxNorm: 250590 1 Tablet(s) PO daily 01/14/2016 Inactive Lasix 40 mg tablet RxNorm: 350160 1 Tablet(s) PO daily as needed for swelling 10/30/2015 11/28/2015 Inactive potassium chloride ER 20 mEq tablet,extended release RxNorm: 969496 1 Tablet(s) PO daily for swelling take with lasix as needed 10/30/2015 11/28/2015 Inactive Tylenol-Codeine #3 300 mg-30 mg tablet RxNorm: 455368 1 Tablet(s) PO QID as needed 10/25/2015 02/01/2017 Inactive Ambien 10 mg tablet RxNorm: 614383 Tablet(s) TAKE ONE TABLET BY MOUTH EVERY NIGHT AT BEDTIME 10/18/2015 03/22/2018 Inactive Diflucan 150 mg tablet RxNorm: 575117 1 Tablet(s) PO daily 02/201612/03/2015 Inactive Lasix 20 mg tablet RxNorm: 096584 1 Tablet(s) PO PRN fror swelling 09/27/2015 10/29/2015 Inactive potassium chloride ER 10 mEq capsule,extended release RxNorm: 198764 1 Capsule(s) PO PRN for swelling take with lasix 09/27/2015 10/29/2015 Inactive Bactrim DS 800 mg-160 mg tablet RxNorm: 658702 1 Tablet(s) PO BID 09/02/2015 09/11/2015 Inactive Bactrim DS 800 mg-160 mg tablet RxNorm: 724763 1 Tablet(s) PO BID 09/02/2015 09/01/2015 Inactive nystatin 100,000 unit/gram topical cream RxNorm: 317689 1 Gram(s) TOP TID 08/28/2015 09/26/2015 Inactive Diflucan 150 mg tablet RxNorm: 002904 1 Tablet(s) PO daily 09/201509/06/2015 Inactive betamethasone dipropionate 0.05 % topical ointment RxNorm: 566287 1 Application TOP TID to affected area 08/02/20152016 Inactive nystatin 100,000 unit/gram topical powder RxNorm: 917445 1 Gram(s) TOP QID 07/09/2015 08/01/2015 Inactive Ambien 10 mg tablet RxNorm: 470732 1 Tablet(s) PO QHS 201406/18/2015 Inactive Ambien 10 mg tablet RxNorm: 994377 TAKE ONE TABLET BY MOUTH EVERY NIGHT AT BEDTIME 06/19/2015 09/16/2015 Inactive Vitamin D2 50,000 unit capsule RxNorm: 276506 1 Capsule(s) PO QW 03/07/2015 03/06/2015 Inactive Vitamin D2 50,000 unit capsule RxNorm: 643330 1 Capsule(s) PO QW 03/07/2015 05/05/2015 Inactive terazosin 5 mg capsule RxNorm: 627803 1 Capsule(s) PO daily 06/201502/28/2016 Inactive [SAVINGS FOR NON-COVERED DRUGS -- BIN:[id number], PCN: [id number], Group: XXXXX, ID# [id number], Questions: . THIS IS NOT INSURANCE.] trazodone 50 mg tablet RxNorm: 860749 1 Tablet(s) PO daily 06/201502/28/2016 Inactive paroxetine 20 mg tablet RxNorm: 1265027 1 Tablet(s) PO daily 02/28/2016 Inactive Tylenol-Codeine #3 300 mg-30 mg tablet RxNorm: 179008 1 Tablet(s) PO QID as needed 03/06/2015 07/02/2015 Inactive amlodipine 10 mg tablet RxNorm: 280922 1 Tablet(s) PO daily 06/201511/17/2015 Inactive metoprolol succinate ER 25 mg tablet,extended release 24 hr RxNorm: 534797 1 Tablet(s) PO daily 03/06/2015 11/17/2015 Inactive omeprazole 20 mg capsule,delayed release RxNorm: 838205 1 Capsule(s) PO QHS 03/06/2015 02/28/2016 Inactive omeprazole 20 mg capsule,delayed release RxNorm: 193797 1 Capsule(s) PO QHS 01/31/2015 01/30/2015 Inactive omeprazole 20 mg capsule,delayed release RxNorm: 296444 1 Capsule(s) PO QHS 01/31/2015 01/30/2015 Inactive omeprazole 20 mg capsule,delayed release RxNorm: 635978 1 Capsule(s) PO QHS 01/31/2015 03/05/2015 Inactive Ambien 10 mg tablet RxNorm: 953237 1 Tablet(s) PO QHS 201404/21/2015 Inactive paroxetine 20 mg tablet RxNorm: 429790 1 Tablet(s) PO daily 08/201412/24/2014 Inactive Ambien 10 mg tablet RxNorm: 640870 1 Tablet(s) PO QHS 201412/24/2014 Inactive paroxetine 20 mg tablet RxNorm: 208763 1 Tablet(s) PO daily 08/201403/05/2015 Inactive terazosin 5 mg capsule RxNorm: 218226 1 Capsule(s) PO daily 07/201403/05/2015 Inactive [SAVINGS FOR NON-COVERED DRUGS -- BIN:[id number], PCN: ASPROD1, Group: XXXXX, ID# [id number], Questions: . THIS IS NOT INSURANCE.] terazosin 5 mg capsule RxNorm: 587311 1 Capsule(s) PO daily 07/201411/22/2014 Inactive Lasix 20 mg tablet RxNorm: 972524 1 Tablet(s) PO daily No Start Date Active K-Dur 10 mEq tablet,extended release RxNorm: 967563 1 Tablet(s) PO daily No Start Date Active hydrochlorothiazide 25 mg tablet RxNorm: 005697 1 Tablet(s) PO daily No Start Date Active Eliquis 5 mg tablet RxNorm: 8731311 1 Tablet(s) PO BID No Start Date Active Vitamin D3 2,000 unit tablet RxNorm: 101751 1 Tablet(s) PO daily No Start Date Active amiodarone 200 mg tablet RxNorm: 818037 1 Tablet(s) PO BID No Start Date Active Zetia 10 mg tablet RxNorm: 745892 1 Tablet(s) PO daily No Start Date Active Lipitor 80 mg tablet RxNorm: 411311 1/2 Tablet(s) PO daily No Start Date Active metoprolol succinate ER 25 mg tablet,extended release 24 hr RxNorm: 811983 1 Tablet(s) PO daily No Start Date 2014 Inactive Entresto 49 mg-51 mg tablet RxNorm: 9054476 1 Tablet(s) PO BID No Start Date 04/19/2018 Inactive sotalol 80 mg tablet RxNorm: 1293694 1 Tablet(s) PO BID No Start Date 04/19/2018 Inactive betamethasone dipropionate 0.05 % topical ointment RxNorm: 018766 1 Application TOP TID to affected area No Start Date 01/2016 Inactive trazodone 50 mg tablet RxNorm: 928437 1 Tablet(s) PO daily No Start Date 03/05/2015 Inactive potassium chloride ER 10 mEq capsule,extended release RxNorm: 816324 1 Capsule(s) PO PRN for swelling take with lasix No Start Date 09/26/2015 Inactive amlodipine 10 mg tablet RxNorm: 963510 1 Tablet(s) PO daily No Start Date 03/05/2015 Inactive isosorbide mononitrate ER 30 mg tablet,extended release 24 hr RxNorm: 420196 1 Tablet(s) PO daily No Start Date 2017 Inactive aspirin 81 mg tablet,delayed release RxNorm: 018341 1 Tablet(s) PO daily No Start Date 02/02/2017 Inactive Lasix 20 mg tablet RxNorm: 515611 1 Tablet(s) PO PRN fror swelling No Start Date 09/26/2015 Inactive lisinopril 5 mg tablet RxNorm: 121949 1 Tablet(s) PO daily No Start Date 07/31/2018 Inactive Crestor 40 mg tablet RxNorm: 130561 1 Tablet(s) PO daily No Start Date 09/15/2016 Inactive metoprolol succinate ER 100 mg tablet,extended release 24 hr RxNorm: 266473 1 Tablet(s) PO daily No Start Date 2017 Inactive Medication Administered No Medication Administered data Immunizations Vaccine Codes Date Status Influenza CVX: 141 04/20/2018 completed Influenza CVX: 141 04/08/2016 completed Pneumococcal (Adult) CVX: 133 04/08/2016 completed Assessments Condition Codes Effective Dates Major depressive disorder, recurrent, mild ICD-10: F33.0 ICD-9: 296.31 04/20/2018 Chronic atrial fibrillation ICD-10: I48.2 ICD-9: 427.31 04/20/2018 Essential (primary) hypertension ICD-10: I10 ICD-9: 401.1 04/20/2018 Encounter for immunization ICD-10: Z23 ICD-9: [...] Reason For Visit Effective Dates Notes hypertension 04/20/2018 Annual Medicare Wellness Exam 02/09/2018 hypertension 12/16/2017 hypertension 08/23/2017 Annual Medicare Wellness Exam 02/03/2017 hypertension 02/02/2017 sinus congestion 11/26/2016 hypertension 10/07/2016 hypertension 09/16/2016 knee pain 09/07/2016 dyspnea 04/08/2016 dyspnea 03/05/2016 dyspnea 12/04/2015 edema 11/18/2015 edema 09/30/2015 rash 09/09/2015 rash 08/28/2015 back pain 07/09/2015 back pain 03/06/2015 Results Observation Observation Code Item Item Code Result Date Cbc With Differential Ord2 WBC 3.99 K/ul 08/01/2018 Cbc With Differential Ord2 RBC 4.50 M/ul 08/01/2018 Cbc With Differential Ord2 HGB 12.3 g/dl 08/01/2018 Cbc With Differential Ord2 HCT 39.2 % 08/01/2018 Cbc With Differential Ord2 Neut% 66.8 % 08/01/2018 Cbc With Differential Ord2 MCV 87.1 fl 08/01/2018 Cbc With Differential Ord2 Lymph% 19.8 % 08/01/2018 Cbc With Differential Ord2 [place]% 9.8 % 08/01/2018 Cbc With Differential Ord2 [...] 0.79 K/ul 08/01/2018 Cbc With Differential Ord2 [place] ABS# 0.4 K/ul 08/01/2018 Cbc With Differential Ord2 Eos ABS# 0.1 K/ul 08/01/2018 Cbc With Differential Ord2 Baso ABS# 0.0 K/ul 08/01/2018 Comp Metabolic Tqz395 NA 137 mEq/L 09/30/2015 Comp Metabolic Lta375 K 4.5 mEq/L 09/30/2015 Comp Metabolic Soo746 CL 102 mEq/L 09/30/2015 Comp Metabolic Pmj189 CO2 26.0 mEq/L 09/30/2015 Comp Metabolic Mce646 ANION GAP 14 09/30/2015 Comp Metabolic Fda988 GLUCOSE 89 mg/dL 09/30/2015 Comp Metabolic Uee585 Creat 0.8 mg/dL 09/30/2015 Comp Metabolic Iyf833 eGFR 79 ml/min/1.73m2 09/30/2015 Comp Metabolic Jso260 BUN 14 mg/dL 09/30/2015 Comp Metabolic Azm686 B/C Ratio 18.2 Ratio 09/30/2015 Comp Metabolic Ipw911 CALCIUM 8.9 mg/dL 09/30/2015 Comp Metabolic Yry496 ALK PHOS 65 U/L 09/30/2015 Comp Metabolic Byp470 AST(SGOT) 26 U/L 09/30/2015 Comp Metabolic Kyv663 ALT(SGPT) 18 U/L 09/30/2015 Comp Metabolic Kzm173 BILI T 0.6 mg/dL 09/30/2015 Comp Metabolic Tzr776 ALBUMIN 3.8 g/dL 09/30/2015 Comp Metabolic Ykl707 TPRO 6.6 g/dL 09/30/2015 Comp Metabolic Fsd786 GLOB 2.8 g/dL 09/30/2015 Comp Metabolic Bqx841 A/G Ratio 1.4 Ratio 09/30/2015 Comp Metabolic Uue118 Osmo 274 mOsmo 09/30/2015 Cbc With Differential [...] 27.7 pg 09/30/2015 Cbc With Differential Ord2 [place]% 10.7 % 09/30/2015 Cbc With Differential Ord2 [...] 1.10 K/ul 09/30/2015 Cbc With Differential Ord2 [place] ABS# 0.6 K/ul 09/30/2015 Cbc With Differential Ord2 Eos ABS# 0.2 K/ul 09/30/2015 Cbc With Differential Ord2 Baso ABS# 0.0 K/ul 09/30/2015 Cbc With Differential Ord2 New Analyzer Notice Please note new ref ranges starting 08-07-2015 due to implemntation of new five part differential hematolgy analyzer. 09/30/2015 Tsh Ord6 hTSH II 1.05 uIU/mL 03/06/2015 Comp Metabolic Pbh597 NA 137 mEq/L 03/06/2015 Comp Metabolic Zmi794 K 4.3 mEq/L 03/06/2015 Comp Metabolic Teg156 CL 104 mEq/L 03/06/2015 Comp Metabolic Nmz220 CO2 28.0 mEq/L 03/06/2015 Comp Metabolic Khx780 ANION GAP 9 03/06/2015 Comp Metabolic Tzj444 GLUCOSE 93 mg/dL 03/06/2015 Comp Metabolic Cbn873 Creat 0.8 mg/dL 03/06/2015 Comp Metabolic Tzx609 eGFR 81 ml/min/1.73m2 03/06/2015 Comp Metabolic Axa476 BUN 12 mg/dL 03/06/2015 Comp Metabolic Gwd759 B/C Ratio 16.0 Ratio 03/06/2015 Comp Metabolic Lld145 CALCIUM 8.9 mg/dL 03/06/2015 Comp Metabolic Ymw654 ALK PHOS 56 U/L 03/06/2015 Comp Metabolic Rtu665 AST(SGOT) 22 U/L 03/06/2015 Comp Metabolic Yns470 ALT(SGPT) 15 U/L 03/06/2015 Comp Metabolic Wuj605 BILI T 0.4 mg/dL 03/06/2015 Comp Metabolic Epq764 ALBUMIN 4.0 g/dL 03/06/2015 Comp Metabolic Zcn379 TPRO 6.5 g/dL 03/06/2015 Comp Metabolic Fnp213 GLOB 2.5 g/dL 03/06/2015 Comp Metabolic Jxi796 A/G Ratio 1.6 Ratio 03/06/2015 Comp Metabolic Iin272 Osmo 273 mOsmo 03/06/2015 Vitamin D 25 Oh Fdr0142 VITAMIN D, 25 HYDROXY 28.14 ng/mL Cbc [...] System Result Effective Dates Constitutional recent illness 04/20/2018 Constitutional fatigue 04/20/2018 [...] Formatting Model/CDA Sections, Assigned to/Amparo Mims CPT-4: 02945Jwzqxyi 04/20/2018 PPPS, SUBSEQ VISIT CPT -4: G0439 02/09/2018 PPPS, SUBSEQ VISIT CPT -4: G0439 02/03/2017 ADMIN INFLUENZA VIRUS VAC CPT-4: G0008 04/08/2016 ADMIN PNEUMOCOCCAL VACCINE SNOMED CT: 27438185 CPT-4: G0009 04/08/2016 PNEUMOCOCCAL VACC [address]: 33213764 CPT-4: 05710 04/08/2016 FLU VACC PRSV FREE INC ANTIG CPT-4: 56478 04/08/2016 Vital Signs Date Vital 04/20/2018 Blood Pressure 1: 128/68 Code : 8480-6 BMI: 41.7 Code : 39999-8 Heart Rate 1 : 85 bpm Height: 5'7" SpO2: 94% Weight: 266 lbs 02/09/2018 Blood Pressure 1: 118/70 Code : 8480-6 BMI: 42.1 Code : 12228-0 Heart Rate 1 : 58 bpm Height: 5'7" SpO2: 94% Weight: 269 lbs 12/16/2017 Blood Pressure 1: 132/86 Code : 8480-6 BMI: 42.7 Code : 80173-2 Heart Rate 1 : 63 bpm Height: 5'7" SpO2: 94% Weight: 272 lbs 14 oz 08/23/2017 Blood Pressure 1: 150/82 Code : 8480-6 BMI: 42.0 Code : 68177-3 Heart Rate 1 : 66 bpm Height: 5'7" SpO2: 96% Weight: 268 lbs 02/03/2017 Blood Pressure 1: 138/72 Code : 8480-6 BMI: 41.2 Code : 20311-0 Heart Rate 1 : 96 bpm Height: 5'7" SpO2: 97% Weight: 263 lbs 02/02/2017 Blood Pressure 1: 140/90 Code : 8480-6 BMI: 41.2 Code : 06996-4 Heart Rate 1 : 103 bpm Height: 5'7" SpO2: 94% Weight: 263 lbs 11/26/2016 Blood Pressure 1: 152/88 Code : 8480-6 BMI: 41.0 Code : 06626-3 Heart Rate 1 : 71 bpm Height: 5'7" SpO2: 94% Temperature: 37.7 (C) / 99.8 (F) Weight: 262 lbs 10/07/2016 Blood Pressure 1: 148/82 Code : 8480-6 BMI: 41.7 Code : 02533-1 Heart Rate 1 : 58 bpm Height: 5'7" SpO2: 96% Weight: 266 lbs 09/16/2016 Blood Pressure 1: 122/70 Code : 8480-6 BMI: 42.0 Code : 23027-3 Heart Rate 1 : 65 bpm Height: 5'7" SpO2: 96% Weight: 268 lbs 09/07/2016 Blood Pressure 1: 154/60 Code : 8480-6 BMI: 42.3 Code : 19700-3 Heart Rate 1 : 101 bpm Height: 5'7" SpO2: 97% Weight: 270 lbs 04/08/2016 Blood Pressure 1: 128/70 Code : 8480-6 BMI: 41.4 Code : 21033-5 Heart Rate 1 : 62 bpm Height: 5'7" SpO2: 95% Weight: 264 lbs 8 oz 03/05/2016 Blood Pressure 1: 144/78 Code : 8480-6 Blood Pressure 1: 139/72 Code: 8480-6 BMI: 41.9 Code: 60510-5 Heart Rate 1: 71 bpm Height: 5'7" SpO2: 93% Weight: 267 lbs 8 oz 12/04/2015 Blood Pressure 1: 132/70 Code : 8480-6 BMI: 41.3 Code : 60201-8 Heart Rate 1 : 56 bpm Height: 5'7" SpO2: 96% Weight: 264 lbs 11/18/2015 Blood Pressure 1: 138/72 Code : 8480-6 BMI: 41.0 Code : 60392-8 Heart Rate 1 : 85 bpm Height: 5'7" SpO2: 93% Weight: 262 lbs 09/30/2015 Blood Pressure 1: 128/76 Code : 8480-6 BMI: 41.2 Code : 32880-3 Heart Rate 1 : 70 bpm Height: 5'7" SpO2: 93% Weight: 263 lbs 09/09/2015 Blood Pressure 1: 138/80 Code : 8480-6 BMI: 40.3 Code : 37813-3 Heart Rate 1 : 84 bpm Height: 5'7" SpO2: 95% Weight: 257 lbs 08/28/2015 Blood Pressure 1: 122/72 Code : 8480-6 BMI: 39.6 Code : 52896-6 Heart Rate 1 : 75 bpm Height: 5'7" SpO2: 96% Weight: 253 lbs 07/09/2015 Blood Pressure 1: 135/78 Code : 8480-6 Blood Pressure 1: 140/78 Code: 8480-6 BMI: 39.5 Code: 47829-4 Heart Rate 1: 62 bpm Height: 5'7" SpO2: 95% Weight: 252 lbs 03/06/2015 Blood Pressure 1: 142/88 Code : 8480-6 BMI: 39.3 Code : 06828-1 Heart Rate 1 : 65 bpm Height: 5'7" SpO2: 95% Weight: 251 lbs Functional Status No Functional Status data History of Present Illness Symptom Name Status Result Effective Date Notes hypertension Quality primary hypertension 04/20/2018 None hypertension [...] data Encounters Encounter Performer Location Codes Date ([id number]) [id number] EST. PATIENT, LEVEL IV Diagnosis: Encounter for immunization[ICD10: Z23] Diagnosis: Essential (primary) hypertension[ICD10: I10] Diagnosis: Chronic atrial fibrillation[ICD10: I48.2] Diagnosis: Major depressive disorder, recurrent, mild[ICD10: F33.0] Scarlett Spring MD, [facility] CPT-4: 85492 04/20/[id number]) 89877 EST. PATIENT, LEVEL IV Diagnosis: Essential (primary) hypertension[ICD10: I10] Diagnosis: Obstructive sleep apnea (adult) (pediatric)[ICD10: G47.33] Diagnosis: Chronic atrial fibrillation[ICD10: I48.2] Scarlett Spring MD, [facility] CPT-4: 48609 12/16/[id number]) 74616 EST. PATIENT, LEVEL IV Diagnosis: Essential (primary) hypertension[ICD10: I10] Diagnosis: Chronic atrial fibrillation[ICD10: I48.2] [facility] CPT-4: 85379 08/23/2017 [id number]) 02841 EST. PATIENT, LEVEL IV Diagnosis: Paroxysmal atrial fibrillation[ICD10: I48.0] Diagnosis: Essential (primary) hypertension[ICD10: I10] Scarlett Spring MD, [facility] CPT-4: 84744 02/02/2017 11673 EST. PATIENT, LEVEL III Diagnosis: Acute laryngopharyngitis[ICD10: J06.0] Diagnosis: Cough[ICD10: R05] Diagnosis: Pleurodynia[ICD10: R07.81] Diagnosis: Other dorsalgia[ICD10: M54.89] Kassandra Spring MD, [facility] CPT-4 : 09633 11/26/2016 ([id number]) 30770 EST. PATIENT, LEVEL IV Diagnosis: Essential (primary) hypertension[ICD10: I10] Diagnosis: Pain in left knee[ICD10: M25.562] Diagnosis: Low back pain[ICD10: M54.5] Diagnosis: Major depressive disorder, recurrent, moderate[ICD10: F33.1] Scarlett Spring MD, [facility] CPT-4: 13180 10/07/2016 ([id number]) 36986 EST. PATIENT, LEVEL IV Diagnosis: Essential (primary) hypertension[ICD10: I10] Diagnosis: Rash and other nonspecific skin eruption[ICD10: R21] Diagnosis: Major depressive disorder, recurrent, mild[ICD10: F33.0] Scarlett Spring MD, [facility] CPT-4: 70631 09/16/2016 16131 EST. PATIENT, LEVEL IV Diagnosis: Pain in left lower leg[ICD10: M79.662] Diagnosis: Pain in left knee[ICD10: M25.562] Kassandra Spring MD, [facility] CPT -4: 11283 09/07/2016 ([id number]) 25443 EST. PATIENT, LEVEL IV Diagnosis: Encounter for immunization[ICD10: Z23] Diagnosis: Essential (primary) hypertension[ICD10: I10] Diagnosis: Mixed hyperlipidemia[ICD10: E78.2] Scarlett Spring MD, [facility] CPT-4: 13271 04/08/2016 ([id number]) 71200 EST. PATIENT, LEVEL III Diagnosis: Essential (primary) hypertension[ICD10: I10] Diagnosis: Shortness of breath[ICD10: R06.02] Scarlett Spring MD, [facility] CPT-4: 85216 03/05/2016 ([id number]) 18142 EST. PATIENT, LEVEL III Diagnosis: Chronic obstructive pulmonary disease, unspecified[ICD10: J44.9] Scarlett Spring MD, [facility] CPT-4: 28059 12/04/2015 ([id number]) 23579 EST. PATIENT, LEVEL IV Diagnosis: Essential (primary) hypertension[ICD10: I10] Diagnosis: Allergic rhinitis due to pollen[ICD10: J30.1] Scarlett Spring MD, [facility] CPT-4: 90305 11/18/2015 ([id number]) 75856 EST. PATIENT, LEVEL IV Diagnosis: Localized edema[ICD10: R60.0] Diagnosis: Dysuria[ICD10: R30.0] Diagnosis: Essential (primary) hypertension[ICD10: I10] Diagnosis: Nausea[ICD10: R11.0] Alis Spring MD, [facility] CPT-4: 20107 09/30/2015 ([id number]) 86495 EST. PATIENT, LEVEL II Diagnosis: Methicillin susceptible Staphylococcus aureus infection as the cause of diseases classified elsewhere[ICD10: B95.61] Diagnosis: Methicillin susceptible Staphylococcus aureus infection, unspecified site[ICD10: A49.01] Alis Spring MD, [facility] CPT-4: 39121 09/09/2015 ([id number]) 70126 EST. PATIENT, LEVEL III Diagnosis: Dermatophytosis, unspecified[ICD10: B35.9] Diagnosis: Rash and other nonspecific skin eruption[ICD10: R21] Scarlett Spring MD, [facility] CPT-4: 89648 08/28/2015 ([id number]) 01736 EST. PATIENT, LEVEL IV Diagnosis: Essential (primary) hypertension[ICD10: I10] Diagnosis: Gastro-esophageal reflux disease without esophagitis[ICD10: K21.9] Diagnosis: Other dorsalgia[ICD10: M54.89] Scarlett Spring MD, [facility] CPT- 4: 64683 07/09/2015 ([id number]) OFFICE VISIT, NEW - LEVEL 4 Diagnosis: ESSENTIAL HYPERTENSION[ICD9: 401.9] Diagnosis: Osteoporosis[ICD9: 733.00] Diagnosis: Back pain[ICD9: 724.5] Diagnosis: Insomnia[ICD9: 780.52] Diagnosis: ESOPHAGEAL REFLUX[ICD9: 530.81] [facility] CPT- 4: 41987 03/06/2015 Plan of Care Planned Activity Notes [...] shot today. 04/20/2018 Appointment: [facility] ([facility] min) Moderate 04/20/2018 Patient Education: [...] surrogate. 02/09/2018 Appointment: Kassandra Argueta WPtel: [facility] - Annual Wellness Visit 02/09/2018 Patient [...] every night. 12/16/2017 Appointment: Scarlett Spring WPtel: [facility]0 [address] (15 min) Moderate 12/16/2017 Patient Education: [...] becoming uncontrolled. 08/23/2017 Appointment: Scarlett Spring WPtel: [facility]9 [facility] (15 min) Moderate 08/23/2017 Patient Education: Patient [...] to cardiology 02/03/2017 Appointment: Kassandra Argueta WPtel: [phone] [facility] [facility] - Annual Wellness Visit 02/03/2017 [...] at home. 02/02/2017 Appointment: [phone] ([facility] min) Moderate 02/02/2017 Patient Education: [...] not improve. 11/26/2016 Appointment: Kassandra Argueta WPtel: [phone] [facility] (30 min) Complex 11/26/2016 Patient Education: Patient [...] symptoms. 10/07/2016 Appointment: Scarlett Spring WPtel: [phone] [facility] (15 min) Moderate 10/07/2016 Patient Education: Patient Medication Summary Completed 10/07/2016 Patient Education: Obesity Completed 10/07/2016 Patient Education: Hypertension Completed 10/07/2016 Care Plan: VASCULAR STUDY Pending 10/04/2016 Care Plan: X-RAY EXAM OF KNEE 3 [facility] : [id number] Pending 10/04/2016 Visit Plan: Hypertension - well [...] paroxetine 09/16/2016 Appointment: Scarlett Spring WPtel: [phone] [facility] (15 min) Moderate 09/16/2016 Patient Education: Patient [...] improve. 09/07/2016 App[facility]ment[phone] [place] (10 min) Simple 09/07/2016 Patient [...] order 04/08/2016 Appointment: [phone] [place] (15 min) Moderate 04/08/2016 Patient [...] days. 03/05/2016 Appointment: Scarlett Spring WPtel: [phone] [facility] [place] (15 min) Moderate 03/05/2016 Patient Education: Patient Medication Summary Completed 03/05/2016 Visit Plan: COPD - chronic problem for this patient. We have reviewed chronic treatment strategy, symptom control, and plans for acute exacerbations. No changes today to the current treatment plan as the patient is stable, monitor for acute changes. anoro samples given to the patient 12/04/2015 Appointment: [phone] (15 min) Moderate 12/04/2015 Patient Education: [...] spray. 11/18/2015 Appointment: Scarlett Spring WPtel: [phone] [facility] [place] (15 min) Moderate 11/18/2015 Patient Education: Patient Medication Summary Completed 11/18/2015 Patient Education: Obesity Completed 11/18/2015 Patient Education: Hypertension Completed 11/18/2015 Appointment: Scarlett Spring WPtel: [facility] [place] (15 min) Moderate 11/07/2015 Visit Plan: [...] culture report. 08/28/2015 Appointment: Scarlett Spring WPtel: [address] [place], [place] [address] (15 min) Moderate 08/28/2015 Patient Education: Patient [...] improving. 07/09/2015 Appointment: [phone] [place] (15 min) Moderate 07/09/2015 Patient [...] improving. 03/06/2015 Appointment: [phone] [place] ([place] New Patient 03/06/2015 Patient [...] RESOLVED . MSSA of groin and under [id number]-[id number] bactrim and call if rash does not [...]
[2018-10-11 10:22] LABS: MYOGLOBIN SERUM 65.3 NG/ML (10.0-92.0)
--- OUTSIDE RECORDS SUMMARY | 2018-10-11 10:22 | XMS REPORT | CCD ---
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 Name Role Phone PP Unavailable CCM Unavailable Summary Purpose Interface Exchange Insurance Providers Payer name Policy type / Coverage type Covered democrat ID Effective Begin Date Effective End Date WPS Medicare Part B Medicare Part B [id number] Unknown [employer] Medicare Part B [id number] Unknown Family history Mother Diagnosis Age At Onset Hypertension Unknown Heart Attack Unknown Brother Diagnosis Age At Onset Heart disease Unknown Runs in the family Diagnosis Age At Onset Heart disease Unknown Daughter Diagnosis Age At Onset Heart Attack Unknown Hyperlipidemia Unknown Hypertension Unknown Social History Social History Element Codes Description Effective Dates Number of children Unknown 2 daughter lives in [place], son - does not have contact [address]: 0207529 Quit over 10 years ago 1990 - previously smoked 2ppd x 25 years. 11/18/2015 Marital status Unknown in 201003/06/2015 Employment Unknown Retired was a [employer] 03/06/2015 Allergies, Adverse Reactions, Alerts Substance Reaction [...] ICD-9: V03.9 ICD-10: Z23 Active 04/07/2016 Unknown Essential (primary) hypertension ICD-9: 401.1 ICD-10: I10 Active 12/16/2017 Unknown Major depressive disorder, recurrent, mild ICD-9: [...] immunization ICD-9: V03.9 ICD-10: Z23 04/07/2016 Active Essential (primary) hypertension ICD-9: 401.1 ICD-10: I10 12/16/2017 Active Major depressive disorder, recurrent, mild ICD-9: [...] Fill Instructions trazodone 50 mg tablet RxNorm: 667290 TAKE ONE TABLET BY MOUTH DAILY 07/25/2018 09/22/2018 Active Ambien 10 mg tablet RxNorm: 588347 Tablet(s) TAKE ONE TABLET BY MOUTH AT BEDTIME 06/24/2018 09/21/2018 Active trazodone 50 mg tablet RxNorm: 453405 TAKE ONE TABLET BY MOUTH DAILY 04/25/2018 07/23/2018 Inactive Ambien 10 mg tablet RxNorm: 830602 Tablet(s) TAKE ONE TABLET BY MOUTH AT BEDTIME 03/23/2018 06/19/2018 Inactive terazosin 5 mg capsule RxNorm: 468011 TAKE ONE CAPSULE BY MOUTH DAILY 03/14/2018 09/09/2018 Active Ambien 10 mg tablet RxNorm: 955732 Tablet(s) TAKE ONE TABLET BY MOUTH AT BEDTIME 01/18/2018 03/17/2018 Inactive trazodone 50 mg tablet RxNorm: 271932 TAKE ONE TABLET BY MOUTH ONCE DAILY 01/10/2018 03/22/2018 Inactive trazodone 50 mg tablet RxNorm: 997918 Tablet(s) TAKE ONE TABLET BY MOUTH ONCE DAILY 01/10/2018 04/24/2018 Inactive Ambien 10 mg tablet RxNorm: 183496 Tablet(s) TAKE ONE TABLET BY MOUTH AT BEDTIME 10/22/2017 01/17/2018 Inactive trazodone 50 mg tablet RxNorm: 248022 TAKE ONE TABLET BY MOUTH ONCE DAILY 10/18/2017 01/09/2018 Inactive omeprazole 20 mg capsule,delayed release RxNorm: 651894 TAKE ONE CAPSULE BY MOUTH ONCE DAILY AT BEDTIME 08/27/2017 No Stop Date Active trazodone 50 mg tablet RxNorm: 013800 TAKE ONE TABLET BY MOUTH ONCE DAILY 08/18/2017 10/17/2017 Inactive Ambien 10 mg tablet RxNorm: 101802 Tablet(s) TAKE ONE TABLET BY MOUTH AT BEDTIME 08/18/2017 03/22/2018 Inactive paroxetine 20 mg tablet RxNorm: 0339875 TAKE ONE TABLET BY MOUTH ONCE DAILY 07/27/2017 No Stop Date Active Ambien 10 mg tablet RxNorm: 189555 Tablet(s) TAKE ONE TABLET BY MOUTH AT BEDTIME 06/23/2017 03/22/2018 Inactive omeprazole 20 mg capsule,delayed release RxNorm: 868179 TAKE ONE CAPSULE BY MOUTH ONCE DAILY AT BEDTIME 04/23/20172017 Inactive trazodone 50 mg tablet RxNorm: 620535 TAKE ONE TABLET BY MOUTH ONCE DAILY 04/13/2017 08/10/2017 Inactive terazosin 5 mg capsule RxNorm: 675328 Capsule(s) TAKE ONE CAPSULE BY MOUTH DAILY 04/08/2017 03/03/2018 Inactive Ambien 10 mg tablet RxNorm: 783373 Tablet(s) TAKE ONE TABLET BY MOUTH AT BEDTIME 02/17/2017 03/22/2018 Inactive Tylenol-Codeine #3 300 mg-30 mg tablet RxNorm: 505045 1 Tablet(s) PO QID as needed 02/02/2017 03/03/2017 Inactive metoprolol succinate ER 50 mg tablet,extended release 24 hr RxNorm: 054787 TAKE ONE TABLET BY MOUTH ONCE DAILY 12/23/2016 02/02/2017 Inactive Zithromax Z-Ted 250 mg tablet RxNorm: 886638 1 Tablet(s) PO UD 11/26/2016 02/16/2017 Inactive trazodone 50 mg tablet RxNorm: 753511 TAKE ONE TABLET BY MOUTH ONCE DAILY 11/12/2016 03/11/2017 Inactive Ambien 10 mg tablet RxNorm: 159497 Tablet(s) TAKE ONE TABLET BY MOUTH AT BEDTIME 10/22/2016 02/15/2017 Inactive paroxetine 20 mg tablet RxNorm: 7370895 1 Tablet(s) PO daily TAKE ONE TABLET BY MOUTH DAILY 09/16/2016 06/12/2017 Inactive meloxicam 7.5 mg tablet RxNorm: 078316 1 Tablet(s) PO daily 11/14/2016 Inactive Protonix 40 mg tablet,delayed release RxNorm: 058612 1 Tablet(s) PO daily 09/16/2016 08/22/2017 Inactive sucralfate 1 gram tablet RxNorm: 668998 1 Tablet(s) PO TID 08/22/2017 Inactive Ambien 10 mg tablet RxNorm: 773606 Tablet(s) TAKE ONE TABLET BY MOUTH AT BEDTIME 08/24/2016 03/22/2018 Inactive trazodone 50 mg tablet RxNorm: 901187 Tablet(s) TAKE ONE TABLET BY MOUTH DAILY 07/29/2016 11/11/2016 Inactive Ambien 10 mg tablet RxNorm: 497463 TAKE ONE TABLET BY MOUTH AT BEDTIME 06/23/2016 03/22/2018 Inactive Ambien 10 mg tablet RxNorm: 694379 Tablet(s) TAKE ONE TABLET BY MOUTH EVERY NIGHT AT BEDTIME 06/22/2016 06/23/2016 Inactive Lasix 40 mg tablet RxNorm: 820085 1 Tablet(s) PO daily as needed for swelling 04/03/2016 09/15/2016 Inactive potassium chloride ER 20 mEq tablet,extended release RxNorm: 512755 1 Tablet(s) PO daily for swelling take with lasix as needed 04/03/2016 09/15/2016 Inactive Ambien 10 mg tablet RxNorm: 880169 Tablet(s) TAKE ONE TABLET BY MOUTH EVERY NIGHT AT BEDTIME 04/03/2016 03/22/2018 Inactive omeprazole 20 mg capsule,delayed release RxNorm: 039466 TAKE ONE CAPSULE BY MOUTH EVERY NIGHT AT BEDTIME 03/31/20162016 Inactive paroxetine 20 mg tablet RxNorm: 9877370 TAKE ONE TABLET BY MOUTH DAILY 03/31/2016 09/15/2016 Inactive trazodone 50 mg tablet RxNorm: 819411 TAKE ONE TABLET BY MOUTH DAILY 03/20/2016 07/28/2016 Inactive terazosin 5 mg capsule RxNorm: 073673 TAKE ONE CAPSULE BY MOUTH DAILY 03/06/2016 10/06/2016 Inactive Ambien 10 mg tablet RxNorm: 368650 Tablet(s) TAKE ONE TABLET BY MOUTH EVERY NIGHT AT BEDTIME 01/17/2016 04/02/2016 Inactive loratadine 10 mg tablet RxNorm: 488108 1 Tablet(s) PO daily 09/15/2016 Inactive mupirocin 2 % topical ointment RxNorm: 705662 1 Application TOP TID 11/18/2015 12/01/2015 Inactive metoprolol succinate ER 50 mg tablet,extended release 24 hr RxNorm: 533386 1 Tablet(s) PO daily 11/18/2015 11/11/2016 Inactive loratadine 10 mg tablet RxNorm: 648119 1 Tablet(s) PO daily 01/14/2016 Inactive Lasix 40 mg tablet RxNorm: 440379 1 Tablet(s) PO daily as needed for swelling 10/30/2015 11/28/2015 Inactive potassium chloride ER 20 mEq tablet,extended release RxNorm: 705583 1 Tablet(s) PO daily for swelling take with lasix as needed 10/30/2015 11/28/2015 Inactive Tylenol-Codeine #3 300 mg-30 mg tablet RxNorm: 518730 1 Tablet(s) PO QID as needed 10/25/2015 02/01/2017 Inactive Ambien 10 mg tablet RxNorm: 990200 Tablet(s) TAKE ONE TABLET BY MOUTH EVERY NIGHT AT BEDTIME 10/18/2015 03/22/2018 Inactive Diflucan 150 mg tablet RxNorm: 013545 1 Tablet(s) PO daily 02/201612/03/2015 Inactive Lasix 20 mg tablet RxNorm: 030770 1 Tablet(s) PO PRN fror swelling 09/27/2015 10/29/2015 Inactive potassium chloride ER 10 mEq capsule,extended release RxNorm: 167486 1 Capsule(s) PO PRN for swelling take with lasix 09/27/2015 10/29/2015 Inactive Bactrim DS 800 mg-160 mg tablet RxNorm: 200024 1 Tablet(s) PO BID 09/02/2015 09/11/2015 Inactive Bactrim DS 800 mg-160 mg tablet RxNorm: 632194 1 Tablet(s) PO BID 09/02/2015 09/01/2015 Inactive nystatin 100,000 unit/gram topical cream RxNorm: 891500 1 Gram(s) TOP TID 08/28/2015 09/26/2015 Inactive Diflucan 150 mg tablet RxNorm: 294638 1 Tablet(s) PO daily 09/201509/06/2015 Inactive betamethasone dipropionate 0.05 % topical ointment RxNorm: 413800 1 Application TOP TID to affected area 08/02/20152016 Inactive nystatin 100,000 unit/gram topical powder RxNorm: 292925 1 Gram(s) TOP QID 07/09/2015 08/01/2015 Inactive Ambien 10 mg tablet RxNorm: 133043 1 Tablet(s) PO QHS 201406/18/2015 Inactive Ambien 10 mg tablet RxNorm: 239852 TAKE ONE TABLET BY MOUTH EVERY NIGHT AT BEDTIME 06/19/2015 09/16/2015 Inactive Vitamin D2 50,000 unit capsule RxNorm: 325071 1 Capsule(s) PO QW 03/07/2015 03/06/2015 Inactive Vitamin D2 50,000 unit capsule RxNorm: 344998 1 Capsule(s) PO QW 03/07/2015 05/05/2015 Inactive terazosin 5 mg capsule RxNorm: 042696 1 Capsule(s) PO daily 06/201502/28/2016 Inactive [SAVINGS FOR NON-COVERED DRUGS -- BIN:[id number], PCN: [id number], Group: XXXXX, ID# [id number], Questions: . THIS IS NOT INSURANCE.] trazodone 50 mg tablet RxNorm: 579721 1 Tablet(s) PO daily 06/201502/28/2016 Inactive paroxetine 20 mg tablet RxNorm: 1138157 1 Tablet(s) PO daily 02/28/2016 Inactive Tylenol-Codeine #3 300 mg-30 mg tablet RxNorm: 444753 1 Tablet(s) PO QID as needed 03/06/2015 07/02/2015 Inactive amlodipine 10 mg tablet RxNorm: 024488 1 Tablet(s) PO daily 06/201511/17/2015 Inactive metoprolol succinate ER 25 mg tablet,extended release 24 hr RxNorm: 674131 1 Tablet(s) PO daily 03/06/2015 11/17/2015 Inactive omeprazole 20 mg capsule,delayed release RxNorm: 343402 1 Capsule(s) PO QHS 03/06/2015 02/28/2016 Inactive omeprazole 20 mg capsule,delayed release RxNorm: 364493 1 Capsule(s) PO QHS 01/31/2015 01/30/2015 Inactive omeprazole 20 mg capsule,delayed release RxNorm: 970008 1 Capsule(s) PO QHS 01/31/2015 01/30/2015 Inactive omeprazole 20 mg capsule,delayed release RxNorm: 423767 1 Capsule(s) PO QHS 01/31/2015 03/05/2015 Inactive Ambien 10 mg tablet RxNorm: 727198 1 Tablet(s) PO QHS 201404/21/2015 Inactive paroxetine 20 mg tablet RxNorm: 814269 1 Tablet(s) PO daily 08/201412/24/2014 Inactive Ambien 10 mg tablet RxNorm: 518557 1 Tablet(s) PO QHS 201412/24/2014 Inactive paroxetine 20 mg tablet RxNorm: 097518 1 Tablet(s) PO daily 08/201403/05/2015 Inactive terazosin 5 mg capsule RxNorm: 291682 1 Capsule(s) PO daily 07/201403/05/2015 Inactive [SAVINGS FOR NON-COVERED DRUGS -- BIN:[id number], PCN: [id number], Group: XXXXX, ID# XXXXXXX, Questions: . THIS IS NOT INSURANCE.] terazosin 5 mg capsule RxNorm: 040379 1 Capsule(s) PO daily 07/201411/22/2014 Inactive Lasix 20 mg tablet RxNorm: 439783 1 Tablet(s) PO daily No Start Date Active K-Dur 10 mEq tablet,extended release RxNorm: 828654 1 Tablet(s) PO daily No Start Date Active hydrochlorothiazide 25 mg tablet RxNorm: 219655 1 Tablet(s) PO daily No Start Date Active Eliquis 5 mg tablet RxNorm: 9088860 1 Tablet(s) PO BID No Start Date Active Vitamin D3 2,000 unit tablet RxNorm: 874700 1 Tablet(s) PO daily No Start Date Active amiodarone 200 mg tablet RxNorm: 547644 1 Tablet(s) PO BID No Start Date Active Zetia 10 mg tablet RxNorm: 065454 1 Tablet(s) PO daily No Start Date Active lisinopril 5 mg tablet RxNorm: 084524 1 Tablet(s) PO daily No Start Date Active Lipitor 80 mg tablet RxNorm: 638156 1/2 Tablet(s) PO daily No Start Date Active metoprolol succinate ER 25 mg tablet,extended release 24 hr RxNorm: 026759 1 Tablet(s) PO daily No Start Date 2014 Inactive Entresto 49 mg-51 mg tablet RxNorm: 1477640 1 Tablet(s) PO BID No Start Date 04/19/2018 Inactive sotalol 80 mg tablet RxNorm: 5429996 1 Tablet(s) PO BID No Start Date 04/19/2018 Inactive betamethasone dipropionate 0.05 % topical ointment RxNorm: 106023 1 Application TOP TID to affected area No Start Date 01/2016 Inactive trazodone 50 mg tablet RxNorm: 895115 1 Tablet(s) PO daily No Start Date 03/05/2015 Inactive potassium chloride ER 10 mEq capsule,extended release RxNorm: 525173 1 Capsule(s) PO PRN for swelling take with lasix No Start Date 09/26/2015 Inactive amlodipine 10 mg tablet RxNorm: 225356 1 Tablet(s) PO daily No Start Date 03/05/2015 Inactive isosorbide mononitrate ER 30 mg tablet,extended release 24 hr RxNorm: 533536 1 Tablet(s) PO daily No Start Date 2017 Inactive aspirin 81 mg tablet,delayed release RxNorm: 974548 1 Tablet(s) PO daily No Start Date 02/02/2017 Inactive Lasix 20 mg tablet RxNorm: 651608 1 Tablet(s) PO PRN fror swelling No Start Date 09/26/2015 Inactive Crestor 40 mg tablet RxNorm: 550552 1 Tablet(s) PO daily No Start Date 09/15/2016 Inactive metoprolol succinate ER 100 mg tablet,extended release 24 hr RxNorm: 016293 1 Tablet(s) PO daily No Start Date [...] Item Item Code Result Date Comp Metabolic Usx853 NA 137 mEq/L 09/30/2015 Comp Metabolic Bnb919 K 4.5 mEq/L 09/30/2015 Comp Metabolic Gdk450 CL 102 mEq/L 09/30/2015 Comp Metabolic Fek009 CO2 26.0 mEq/L 09/30/2015 Comp Metabolic Mnk587 ANION GAP 14 09/30/2015 Comp Metabolic Iwf431 GLUCOSE 89 mg/dL 09/30/2015 Comp Metabolic Icj681 Creat 0.8 mg/dL 09/30/2015 Comp Metabolic Gaa527 eGFR 79 ml/min/1.73m2 09/30/2015 Comp Metabolic Bvp223 BUN 14 mg/dL 09/30/2015 Comp Metabolic Ooz224 B/C Ratio 18.2 Ratio 09/30/2015 Comp Metabolic Gro179 CALCIUM 8.9 mg/dL 09/30/2015 Comp Metabolic Rrv091 ALK PHOS 65 U/L 09/30/2015 Comp Metabolic Jri552 AST(SGOT) 26 U/L 09/30/2015 Comp Metabolic Zdz415 ALT(SGPT) 18 U/L 09/30/2015 Comp Metabolic Bpr251 BILI T 0.6 mg/dL 09/30/2015 Comp Metabolic Hll116 ALBUMIN 3.8 g/dL 09/30/2015 Comp Metabolic Nuz404 TPRO 6.6 g/dL 09/30/2015 Comp Metabolic Pnl720 GLOB 2.8 g/dL 09/30/2015 Comp Metabolic Lww182 A/G Ratio 1.4 Ratio 09/30/2015 Comp Metabolic Duo477 Osmo 274 mOsmo 09/30/2015 Cbc With Differential [...] 27.7 pg 09/30/2015 Cbc With Differential Ord2 Donley% 10.7 % 09/30/2015 Cbc With Differential Ord2 [...] 1.10 K/ul 09/30/2015 Cbc With Differential Ord2 Donley ABS# 0.6 K/ul 09/30/2015 Cbc With Differential Ord2 Eos ABS# 0.2 K/ul 09/30/2015 Cbc With Differential Ord2 Baso ABS# 0.0 K/ul 09/30/2015 Cbc With Differential Ord2 New Analyzer Notice Please note new ref ranges starting 08-07-2015 due to implemntation of new five part differential hematolgy analyzer. 09/30/2015 Tsh Ord6 hTSH II 1.05 uIU/mL 03/06/2015 Comp Metabolic Sss529 NA 137 mEq/L 03/06/2015 Comp Metabolic Wel010 K 4.3 mEq/L 03/06/2015 Comp Metabolic Zpj556 CL 104 mEq/L 03/06/2015 Comp Metabolic Njz954 CO2 28.0 mEq/L 03/06/2015 Comp Metabolic Nni015 ANION GAP 9 03/06/2015 Comp Metabolic Hcf196 GLUCOSE 93 mg/dL 03/06/2015 Comp Metabolic Ymp043 Creat 0.8 mg/dL 03/06/2015 Comp Metabolic Jfa007 eGFR 81 ml/min/1.73m2 03/06/2015 Comp Metabolic Wjv416 BUN 12 mg/dL 03/06/2015 Comp Metabolic Uni775 B/C Ratio 16.0 Ratio 03/06/2015 Comp Metabolic Ftq591 CALCIUM 8.9 mg/dL 03/06/2015 Comp Metabolic Ane239 ALK PHOS 56 U/L 03/06/2015 Comp Metabolic Ueq758 AST(SGOT) 22 U/L 03/06/2015 Comp Metabolic Lpt174 ALT(SGPT) 15 U/L 03/06/2015 Comp Metabolic Kbq031 BILI T 0.4 mg/dL 03/06/2015 Comp Metabolic Gug120 ALBUMIN 4.0 g/dL 03/06/2015 Comp Metabolic Gky676 TPRO 6.5 g/dL 03/06/2015 Comp Metabolic Uof622 GLOB 2.5 g/dL 03/06/2015 Comp Metabolic Kvg671 A/G Ratio 1.6 Ratio 03/06/2015 Comp Metabolic Hgf648 Osmo 273 mOsmo 03/06/2015 Vitamin D 25 Oh Kjc7321 VITAMIN D, 25 HYDROXY 28.14 ng/mL Cbc [...] Formatting Model/CDA Sections, Assigned to/Amparo Mims CPT-4: 77229Qvllqyg 04/20/2018 PPPS, SUBSEQ VISIT CPT -4: G0439 02/09/2018 PPPS, SUBSEQ VISIT CPT -4: G0439 02/03/2017 ADMIN INFLUENZA VIRUS VAC CPT-4: G0008 04/08/2016 ADMIN PNEUMOCOCCAL VACCINE SNOMED CT: 99481043 CPT-4: G0009 04/08/2016 PNEUMOCOCCAL VACC [address]: 66588356 CPT-4: 22044 04/08/2016 FLU VACC PRSV FREE INC ANTIG CPT-4: 13781 04/08/2016 Vital Signs Date Vital 04/20/2018 Blood Pressure 1: 128/68 Code : 8480-6 BMI: 41.7 Code : 14329-0 Heart Rate 1 : 85 bpm Height: 5'7" SpO2: 94% Weight: 266 lbs 02/09/2018 Blood Pressure 1: 118/70 Code : 8480-6 BMI: 42.1 Code : 78512-9 Heart Rate 1 : 58 bpm Height: 5'7" SpO2: 94% Weight: 269 lbs 12/16/2017 Blood Pressure 1: 132/86 Code : 8480-6 BMI: 42.7 Code : 95406-3 Heart Rate 1 : 63 bpm Height: 5'7" SpO2: 94% Weight: 272 lbs 14 oz 08/23/2017 Blood Pressure 1: 150/82 Code : 8480-6 BMI: 42.0 Code : 31007-8 Heart Rate 1 : 66 bpm Height: 5'7" SpO2: 96% Weight: 268 lbs 02/03/2017 Blood Pressure 1: 138/72 Code : 8480-6 BMI: 41.2 Code : 77227-4 Heart Rate 1 : 96 bpm Height: 5'7" SpO2: 97% Weight: 263 lbs 02/02/2017 Blood Pressure 1: 140/90 Code : 8480-6 BMI: 41.2 Code : 85442-8 Heart Rate 1 : 103 bpm Height: 5'7" SpO2: 94% Weight: 263 lbs 11/26/2016 Blood Pressure 1: 152/88 Code : 8480-6 BMI: 41.0 Code : 60554-7 Heart Rate 1 : 71 bpm Height: 5'7" SpO2: 94% Temperature: 37.7 (C) / 99.8 (F) Weight: 262 lbs 10/07/2016 Blood Pressure 1: 148/82 Code : 8480-6 BMI: 41.7 Code : 67627-6 Heart Rate 1 : 58 bpm Height: 5'7" SpO2: 96% Weight: 266 lbs 09/16/2016 Blood Pressure 1: 122/70 Code : 8480-6 BMI: 42.0 Code : 44313-1 Heart Rate 1 : 65 bpm Height: 5'7" SpO2: 96% Weight: 268 lbs 09/07/2016 Blood Pressure 1: 154/60 Code : 8480-6 BMI: 42.3 Code : 96084-8 Heart Rate 1 : 101 bpm Height: 5'7" SpO2: 97% Weight: 270 lbs 04/08/2016 Blood Pressure 1: 128/70 Code : 8480-6 BMI: 41.4 Code : 18564-7 Heart Rate 1 : 62 bpm Height: 5'7" SpO2: 95% Weight: 264 lbs 8 oz 03/05/2016 Blood Pressure 1: 144/78 Code : 8480-6 Blood Pressure 1: 139/72 Code: 8480-6 BMI: 41.9 Code: 92403-0 Heart Rate 1: 71 bpm Height: 5'7" SpO2: 93% Weight: 267 lbs 8 oz 12/04/2015 Blood Pressure 1: 132/70 Code : 8480-6 BMI: 41.3 Code : 05365-8 Heart Rate 1 : 56 bpm Height: 5'7" SpO2: 96% Weight: 264 lbs 11/18/2015 Blood Pressure 1: 138/72 Code : 8480-6 BMI: 41.0 Code : 45561-2 Heart Rate 1 : 85 bpm Height: 5'7" SpO2: 93% Weight: 262 lbs 09/30/2015 Blood Pressure 1: 128/76 Code : 8480-6 BMI: 41.2 Code : 55631-6 Heart Rate 1 : 70 bpm Height: 5'7" SpO2: 93% Weight: 263 lbs 09/09/2015 Blood Pressure 1: 138/80 Code : 8480-6 BMI: 40.3 Code : 20547-7 Heart Rate 1 : 84 bpm Height: 5'7" SpO2: 95% Weight: 257 lbs 08/28/2015 Blood Pressure 1: 122/72 Code : 8480-6 BMI: 39.6 Code : 90326-2 Heart Rate 1 : 75 bpm Height: 5'7" SpO2: 96% Weight: 253 lbs 07/09/2015 Blood Pressure 1: 135/78 Code : 8480-6 Blood Pressure 1: 140/78 Code: 8480-6 BMI: 39.5 Code: 75930-8 Heart Rate 1: 62 bpm Height: 5'7" SpO2: 95% Weight: 252 lbs 03/06/2015 Blood Pressure 1: 142/88 Code : 8480-6 BMI: 39.3 Code : 24606-3 Heart Rate 1 : 65 bpm Height: [...] data Encounters Encounter Performer Location Codes Date ([id number]) 05894 EST. PATIENT, LEVEL IV Diagnosis: Encounter for immunization[ICD10: Z23] Diagnosis: Essential (primary) hypertension[ICD10: I10] Diagnosis: Chronic atrial fibrillation[ICD10: I48.2] Diagnosis: Major depressive disorder, recurrent, mild[ICD10: F33.0] [facility] CPT-4: 57037 04/20/2018 ([id number]) 83518 EST. PATIENT, LEVEL IV Diagnosis: Essential (primary) hypertension[ICD10: I10] Diagnosis: Obstructive sleep apnea (adult) (pediatric)[ICD10: G47.33] Diagnosis: Chronic atrial fibrillation[ICD10: I48.2] [facility] CPT-4: 30067 12/16/2017 ([id number]) 69940 EST. PATIENT, LEVEL IV Diagnosis: Essential (primary) hypertension[ICD10: I10] Diagnosis: Chronic atrial fibrillation[ICD10: I48.2] Scarlett Spring MD, [facility] CPT-4: 24550 08/23/2017 ([id number]) 98872 EST. PATIENT, LEVEL IV Diagnosis: Paroxysmal atrial fibrillation[ICD10: I48.0] Diagnosis: Essential (primary) hypertension[ICD10: I10] Scarlett Spring MD, [facility] CPT-4: 99421 02/02/2017 28312 EST. PATIENT, LEVEL III Diagnosis: Acute laryngopharyngitis[ICD10: J06.0] Diagnosis: Cough[ICD10: R05] Diagnosis: Pleurodynia[ICD10: R07.81] Diagnosis: Other dorsalgia[ICD10: M54.89] Kassandra Spring MD, [facility] CPT-4 : 79995 11/26/2016 ([id number]) 79745 EST. PATIENT, LEVEL IV Diagnosis: Essential (primary) hypertension[ICD10: I10] Diagnosis: Pain in left knee[ICD10: M25.562] Diagnosis: Low back pain[ICD10: M54.5] Diagnosis: Major depressive disorder, recurrent, moderate[ICD10: F33.1] Scarlett Spring MD, [facility] CPT-4: 72139 10/07/2016 ([id number]) 67954 EST. PATIENT, LEVEL IV Diagnosis: Essential (primary) hypertension[ICD10: I10] Diagnosis: Rash and other nonspecific skin eruption[ICD10: R21] Diagnosis: Major depressive disorder, recurrent, mild[ICD10: F33.0] Scarlett Spring MD, [facility] CPT-4: 04084 09/16/2016 72205 EST. PATIENT, LEVEL IV Diagnosis: Pain in left lower leg[ICD10: M79.662] Diagnosis: Pain in left knee[ICD10: M25.562] Kassandra Spring MD, [facility] CPT -4: 99973 09/07/2016 ([id number]) 56014 EST. PATIENT, LEVEL IV Diagnosis: Encounter for immunization[ICD10: Z23] Diagnosis: Essential (primary) hypertension[ICD10: I10] Diagnosis: Mixed hyperlipidemia[ICD10: E78.2] Scarlett [facility] MD, [facility] CPT-4: 05421 04/08/2016 ([id number]) 43955 EST. PATIENT, LEVEL III Diagnosis: Essential (primary) hypertension[ICD10: I10] Diagnosis: Shortness of breath[ICD10: R06.02] Scarlett Spring MD [facility] CPT-4: 13853 03/05/2016 ([id number]) 57424 EST. PATIENT, LEVEL III Diagnosis: Chronic obstructive pulmonary disease, unspecified[ICD10: J44.9] Scarlett Spring MD [facility] CPT-4: 65681 12/04/2015 ([id number]) 18380 EST. PATIENT, LEVEL IV Diagnosis: Essential (primary) hypertension[ICD10: I10] Diagnosis: Allergic rhinitis due to pollen[ICD10: J30.1] Scarlett Spring MD [facility] CPT-4: 01258 11/18/2015 ([id number]) 30416 EST. PATIENT, LEVEL IV Diagnosis: Localized edema[ICD10: R60.0] Diagnosis: Dysuria[ICD10: R30.0] Diagnosis: Essential (primary) hypertension[ICD10: I10] Diagnosis: Nausea[ICD10: R11.0] Alis Spring MD, [facility] CPT-4: 75800 09/30/2015 ([id number]) 94216 EST. PATIENT, LEVEL II Diagnosis: Methicillin susceptible Staphylococcus aureus infection as the cause of diseases classified elsewhere[ICD10: B95.61] Diagnosis: Methicillin susceptible Staphylococcus aureus infection, unspecified site[ICD10: A49.01] Alis Spring MD, [facility] CPT-4: 05557 09/09/2015 ([id number]) 70233 EST. PATIENT, LEVEL III Diagnosis: Dermatophytosis, unspecified[ICD10: B35.9] Diagnosis: Rash and other nonspecific skin eruption[ICD10: R21] Scarlett Spring MD, [facility] CPT-4: 52237 08/28/2015 ([id number]) 51010 EST. PATIENT, LEVEL IV Diagnosis: Essential (primary) hypertension[ICD10: I10] Diagnosis: Gastro-esophageal reflux disease without esophagitis[ICD10: K21.9] Diagnosis: Other dorsalgia[ICD10: M54.89] [facility] CPT- 4: 78222 07/09/2015 ([id number]) OFFICE VISIT, NEW - LEVEL 4 Diagnosis: ESSENTIAL HYPERTENSION[ICD9: 401.9] Diagnosis: Osteoporosis[ICD9: 733.00] Diagnosis: Back pain[ICD9: 724.5] Diagnosis: Insomnia[ICD9: 780.52] Diagnosis: ESOPHAGEAL REFLUX[ICD9: 530.81] [facility] CPT- 4: 02486 03/06/2015 Plan of Care Planned Activity Notes [...] shot today. 04/20/2018 Appointment: Scarlett Spring WPtel: [address] [place], [place] [phone] (15 min) Moderate 04/20/2018 Patient Education: Patient [...] surrogate. 02/09/2018 Appointment: [phone] [facility] [facility] - Annual Wellness Visit 02/09/2018 [...] night. 12/16/2017 [facility] (15 min) Moderate 12/16/2017 Patient Education: [...] uncontrolled. 08/23/2017 Appointment: Scarlett Spring WPtel: [address] [facility] (15 min) Moderate 08/23/2017 Patient Education: Patient [...] to cardiology 02/03/2017 Appointment: Kassandra Argueta WPtel: [facility] [place] [address] - Annual Wellness Visit 02/03/2017 Patient Education: [...] at home. 02/02/2017 Appointment: Scarlett Spring WPtel: [facility] (15 min) Moderate 02/02/2017 Patient Education: Patient [...] not improve. 11/26/2016 Appointment: Kassandra Argueta WPtel: [address] [place], [place] [address] (30 min) Complex 11/26/2016 Patient Education: Patient [...] pain symptoms. 10/07/2016 Appointment: [facility] [place] (15 min) Moderate 10/07/2016 Patient Education: Patient Medication Summary Completed 10/07/2016 Patient Education: Obesity Completed 10/07/2016 Patient Education: Hypertension Completed 10/07/2016 Care Plan: VASCULAR STUDY Pending 10/04/2016 Care Plan: X-RAY EXAM OF KNEE 3 LOINC : 07004-7 Pending 10/04/2016 Visit Plan: Hypertension - well [...] paroxetine 09/16/2016 Appointment: Scarlett Spring WPtel: [phone] [facility] [place] (15 min) Moderate 09/16/2016 Patient Education: [...] improve. 09/07/2016 Appointment: Kassandra Argueta WPtel: [phone] [facility] [place] (10 min) Simple 09/07/2016 Patient [...] order 04/08/2016 [facility] [place] [phone] [place] ([facility] min) Moderate 04/08/2016 Patient [...] 10 days. 03/05/2016 [facility] [place] [phone] ([facility]) Moderate 03/05/2016 Patient Education: Patient Medication Summary Completed 03/05/2016 Visit Plan: COPD - chronic problem for this patient. We have reviewed chronic treatment strategy, symptom control, and plans for acute exacerbations. No changes today to the current treatment plan as the patient is stable, monitor for acute changes. anoro samples given to the patient 12/04/2015 App[facility]ment: [place] [phone] ([facility] min) Moderate 12/04/2015 Patient Education: [...] allergy spray. 11/18/2015 Appointment: Scarlett Spring WPtel: [facility]7 [facility] (15 min) Moderate 11/18/2015 Patient Education: Patient Medication Summary Completed 11/18/2015 Patient Education: Obesity Completed 11/18/2015 Patient Education: Hypertension Completed 11/18/2015 Appointment: Clementine Scarlett WPtel: [facility]9 [id number] (15 min) Moderate 11/07/2015 Visit Plan: [...] culture report. 08/28/2015 Appointment: Scarlett Spring WPtel: [facility] (15 min) Moderate 08/28/2015 Patient Education: Patient Medication Summary Completed 08/28/2015 Care Plan: C SAMUELUN RTS Cultured from groin Pending 08/28/2015 Visit [...] not improving. 07/09/2015 App[facility]ment: [place] [phone] [place] (15 min) Moderate 07/09/2015 Patient [...] improving. 03/06/2015 App[facility]ment: [place] [phone] [place] ([place] New Patient 03/06/2015 Patient [...] RESOLVED . MSSA of groin and under [id number] bactrim and call if rash does not [...]
--- OUTSIDE RECORDS SUMMARY | 2018-10-11 10:25 | XMS REPORT | CCD ---
Author Author Scarlett Spring Organization Scarlett Spring MD, [facility] Address [address] [place] [address] Phone Care Team Providers Care Product Safety Tester Name Role Phone PP Unavailable CCM Unavailable Summary Purpose Interface Exchange Insurance Providers Payer name Policy type / Coverage type Covered constitution party ID Effective Begin Date Effective End Date WPS Medicare Part B Medicare Part B [id number] Unknown [employer] Medicare Part B [id number] Unknown Family history Mother Diagnosis Age At Onset Hypertension Unknown Heart Attack Unknown Brother Diagnosis Age At Onset Heart disease Unknown Runs in the family Diagnosis Age At Onset Heart disease Unknown Daughter Diagnosis Age At Onset Heart Attack Unknown Hyperlipidemia Unknown Hypertension Unknown Social History Social History Element Codes Description Effective Dates Number of children Unknown 2 daughter lives in [place], son - does not have contact [address]: 7646195 Quit over 10 years ago 1990 - previously smoked 2ppd x 25 years. 11/18/2015 Marital status Unknown in 201003/06/2015 Employment Unknown Retired was a [employer] 03/06/2015 Allergies, Adverse Reactions, Alerts Substance Reaction [...] Fill Instructions Ambien 10 mg tablet RxNorm: 550661 Tablet(s) TAKE ONE TABLET BY MOUTH AT BEDTIME 06/24/2018 09/21/2018 Active trazodone 50 mg tablet RxNorm: 142380 TAKE ONE TABLET BY MOUTH DAILY 04/25/2018 07/23/2018 Active Ambien 10 mg tablet RxNorm: 498332 Tablet(s) TAKE ONE TABLET BY MOUTH AT BEDTIME 03/23/2018 06/19/2018 Inactive terazosin 5 mg capsule RxNorm: 676721 TAKE ONE CAPSULE BY MOUTH DAILY 03/14/2018 09/09/2018 Active Ambien 10 mg tablet RxNorm: 995652 Tablet(s) TAKE ONE TABLET BY MOUTH AT BEDTIME 01/18/2018 03/17/2018 Inactive trazodone 50 mg tablet RxNorm: 910426 TAKE ONE TABLET BY MOUTH ONCE DAILY 01/10/2018 03/22/2018 Inactive trazodone 50 mg tablet RxNorm: 203156 Tablet(s) TAKE ONE TABLET BY MOUTH ONCE DAILY 01/10/2018 04/24/2018 Inactive Ambien 10 mg tablet RxNorm: 593638 Tablet(s) TAKE ONE TABLET BY MOUTH AT BEDTIME 10/22/2017 01/17/2018 Inactive trazodone 50 mg tablet RxNorm: 922165 TAKE ONE TABLET BY MOUTH ONCE DAILY 10/18/2017 01/09/2018 Inactive omeprazole 20 mg capsule,delayed release RxNorm: 632403 TAKE ONE CAPSULE BY MOUTH ONCE DAILY AT BEDTIME 08/27/2017 No Stop Date Active trazodone 50 mg tablet RxNorm: 943299 TAKE ONE TABLET BY MOUTH ONCE DAILY 08/18/2017 10/17/2017 Inactive Ambien 10 mg tablet RxNorm: 357689 Tablet(s) TAKE ONE TABLET BY MOUTH AT BEDTIME 08/18/2017 03/22/2018 Inactive paroxetine 20 mg tablet RxNorm: 8593228 TAKE ONE TABLET BY MOUTH ONCE DAILY 07/27/2017 No Stop Date Active Ambien 10 mg tablet RxNorm: 755581 Tablet(s) TAKE ONE TABLET BY MOUTH AT BEDTIME 06/23/2017 03/22/2018 Inactive omeprazole 20 mg capsule,delayed release RxNorm: 830593 TAKE ONE CAPSULE BY MOUTH ONCE DAILY AT BEDTIME 04/23/20172017 Inactive trazodone 50 mg tablet RxNorm: 207181 TAKE ONE TABLET BY MOUTH ONCE DAILY 04/13/2017 08/10/2017 Inactive terazosin 5 mg capsule RxNorm: 984111 Capsule(s) TAKE ONE CAPSULE BY MOUTH DAILY 04/08/2017 03/03/2018 Inactive Ambien 10 mg tablet RxNorm: 351610 Tablet(s) TAKE ONE TABLET BY MOUTH AT BEDTIME 02/17/2017 03/22/2018 Inactive Tylenol-Codeine #3 300 mg-30 mg tablet RxNorm: 522294 1 Tablet(s) PO QID as needed 02/02/2017 03/03/2017 Inactive metoprolol succinate ER 50 mg tablet,extended release 24 hr RxNorm: 704801 TAKE ONE TABLET BY MOUTH ONCE DAILY 12/23/2016 02/02/2017 Inactive Zithromax Z-Ted 250 mg tablet RxNorm: 333256 1 Tablet(s) PO UD 11/26/2016 02/16/2017 Inactive trazodone 50 mg tablet RxNorm: 389056 TAKE ONE TABLET BY MOUTH ONCE DAILY 11/12/2016 03/11/2017 Inactive Ambien 10 mg tablet RxNorm: 472271 Tablet(s) TAKE ONE TABLET BY MOUTH AT BEDTIME 10/22/2016 02/15/2017 Inactive paroxetine 20 mg tablet RxNorm: 5289716 1 Tablet(s) PO daily TAKE ONE TABLET BY MOUTH DAILY 09/16/2016 06/12/2017 Inactive meloxicam 7.5 mg tablet RxNorm: 081436 1 Tablet(s) PO daily 11/14/2016 Inactive Protonix 40 mg tablet,delayed release RxNorm: 391339 1 Tablet(s) PO daily 09/16/2016 08/22/2017 Inactive sucralfate 1 gram tablet RxNorm: 236412 1 Tablet(s) PO TID 08/22/2017 Inactive Ambien 10 mg tablet RxNorm: 686048 Tablet(s) TAKE ONE TABLET BY MOUTH AT BEDTIME 08/24/2016 03/22/2018 Inactive trazodone 50 mg tablet RxNorm: 216853 Tablet(s) TAKE ONE TABLET BY MOUTH DAILY 07/29/2016 11/11/2016 Inactive Ambien 10 mg tablet RxNorm: 043850 TAKE ONE TABLET BY MOUTH AT BEDTIME 06/23/2016 03/22/2018 Inactive Ambien 10 mg tablet RxNorm: 343414 Tablet(s) TAKE ONE TABLET BY MOUTH EVERY NIGHT AT BEDTIME 06/22/2016 06/23/2016 Inactive Lasix 40 mg tablet RxNorm: 813328 1 Tablet(s) PO daily as needed for swelling 04/03/2016 09/15/2016 Inactive potassium chloride ER 20 mEq tablet,extended release RxNorm: 148999 1 Tablet(s) PO daily for swelling take with lasix as needed 04/03/2016 09/15/2016 Inactive Ambien 10 mg tablet RxNorm: 008194 Tablet(s) TAKE ONE TABLET BY MOUTH EVERY NIGHT AT BEDTIME 04/03/2016 03/22/2018 Inactive omeprazole 20 mg capsule,delayed release RxNorm: 044728 TAKE ONE CAPSULE BY MOUTH EVERY NIGHT AT BEDTIME 03/31/20162016 Inactive paroxetine 20 mg tablet RxNorm: 1510644 TAKE ONE TABLET BY MOUTH DAILY 03/31/2016 09/15/2016 Inactive trazodone 50 mg tablet RxNorm: 419916 TAKE ONE TABLET BY MOUTH DAILY 03/20/2016 07/28/2016 Inactive terazosin 5 mg capsule RxNorm: 714184 TAKE ONE CAPSULE BY MOUTH DAILY 03/06/2016 10/06/2016 Inactive Ambien 10 mg tablet RxNorm: 124568 Tablet(s) TAKE ONE TABLET BY MOUTH EVERY NIGHT AT BEDTIME 01/17/2016 04/02/2016 Inactive loratadine 10 mg tablet RxNorm: 934994 1 Tablet(s) PO daily 09/15/2016 Inactive mupirocin 2 % topical ointment RxNorm: 155709 1 Application TOP TID 11/18/2015 12/01/2015 Inactive metoprolol succinate ER 50 mg tablet,extended release 24 hr RxNorm: 875348 1 Tablet(s) PO daily 11/18/2015 11/11/2016 Inactive loratadine 10 mg tablet RxNorm: 670146 1 Tablet(s) PO daily 01/14/2016 Inactive Lasix 40 mg tablet RxNorm: 550501 1 Tablet(s) PO daily as needed for swelling 10/30/2015 11/28/2015 Inactive potassium chloride ER 20 mEq tablet,extended release RxNorm: 975399 1 Tablet(s) PO daily for swelling take with lasix as needed 10/30/2015 11/28/2015 Inactive Tylenol-Codeine #3 300 mg-30 mg tablet RxNorm: 165281 1 Tablet(s) PO QID as needed 10/25/2015 02/01/2017 Inactive Ambien 10 mg tablet RxNorm: 840360 Tablet(s) TAKE ONE TABLET BY MOUTH EVERY NIGHT AT BEDTIME 10/18/2015 03/22/2018 Inactive Diflucan 150 mg tablet RxNorm: 466542 1 Tablet(s) PO daily 02/201612/03/2015 Inactive Lasix 20 mg tablet RxNorm: 553819 1 Tablet(s) PO PRN fror swelling 09/27/2015 10/29/2015 Inactive potassium chloride ER 10 mEq capsule,extended release RxNorm: 403003 1 Capsule(s) PO PRN for swelling take with lasix 09/27/2015 10/29/2015 Inactive Bactrim DS 800 mg-160 mg tablet RxNorm: 964394 1 Tablet(s) PO BID 09/02/2015 09/11/2015 Inactive Bactrim DS 800 mg-160 mg tablet RxNorm: 053488 1 Tablet(s) PO BID 09/02/2015 09/01/2015 Inactive nystatin 100,000 unit/gram topical cream RxNorm: 873180 1 Gram(s) TOP TID 08/28/2015 09/26/2015 Inactive Diflucan 150 mg tablet RxNorm: 452265 1 Tablet(s) PO daily 09/201509/06/2015 Inactive betamethasone dipropionate 0.05 % topical ointment RxNorm: 637385 1 Application TOP TID to affected area 08/02/20152016 Inactive nystatin 100,000 unit/gram topical powder RxNorm: 467459 1 Gram(s) TOP QID 07/09/2015 08/01/2015 Inactive Ambien 10 mg tablet RxNorm: 288090 1 Tablet(s) PO QHS 201406/18/2015 Inactive Ambien 10 mg tablet RxNorm: 657603 TAKE ONE TABLET BY MOUTH EVERY NIGHT AT BEDTIME 06/19/2015 09/16/2015 Inactive Vitamin D2 50,000 unit capsule RxNorm: 482386 1 Capsule(s) PO QW 03/07/2015 03/06/2015 Inactive Vitamin D2 50,000 unit capsule RxNorm: 982780 1 Capsule(s) PO QW 03/07/2015 05/05/2015 Inactive terazosin 5 mg capsule RxNorm: 262242 1 Capsule(s) PO daily 06/201502/28/2016 Inactive [SAVINGS FOR NON-COVERED DRUGS -- BIN:713474, PCN: [id number], Group: XXXXX, ID# [id number], Questions: . THIS IS NOT INSURANCE.] trazodone 50 mg tablet RxNorm: 007388 1 Tablet(s) PO daily 06/201502/28/2016 Inactive paroxetine 20 mg tablet RxNorm: 7217216 1 Tablet(s) PO daily 02/28/2016 Inactive Tylenol-Codeine #3 300 mg-30 mg tablet RxNorm: 526643 1 Tablet(s) PO QID as needed 03/06/2015 07/02/2015 Inactive amlodipine 10 mg tablet RxNorm: 967472 1 Tablet(s) PO daily 06/201511/17/2015 Inactive metoprolol succinate ER 25 mg tablet,extended release 24 hr RxNorm: 781975 1 Tablet(s) PO daily 03/06/2015 11/17/2015 Inactive omeprazole 20 mg capsule,delayed release RxNorm: 680551 1 Capsule(s) PO QHS 03/06/2015 02/28/2016 Inactive omeprazole 20 mg capsule,delayed release RxNorm: 062983 1 Capsule(s) PO QHS 01/31/2015 01/30/2015 Inactive omeprazole 20 mg capsule,delayed release RxNorm: 800815 1 Capsule(s) PO QHS 01/31/2015 01/30/2015 Inactive omeprazole 20 mg capsule,delayed release RxNorm: 820603 1 Capsule(s) PO QHS 01/31/2015 03/05/2015 Inactive Ambien 10 mg tablet RxNorm: 366225 1 Tablet(s) PO QHS 201404/21/2015 Inactive paroxetine 20 mg tablet RxNorm: 389495 1 Tablet(s) PO daily 08/201412/24/2014 Inactive Ambien 10 mg tablet RxNorm: 751440 1 Tablet(s) PO QHS 201412/24/2014 Inactive paroxetine 20 mg tablet RxNorm: 191915 1 Tablet(s) PO daily 08/201403/05/2015 Inactive terazosin 5 mg capsule RxNorm: 557835 1 Capsule(s) PO daily 07/201403/05/2015 Inactive [SAVINGS FOR NON-COVERED DRUGS -- BIN:758107, PCN: ASPROD1, Group: XXXXX, ID# [id number], Questions: . THIS IS NOT INSURANCE.] terazosin 5 mg capsule RxNorm: 473083 1 Capsule(s) PO daily 07/201411/22/2014 Inactive Lasix 20 mg tablet RxNorm: 375135 1 Tablet(s) PO daily No Start Date Active K-Dur 10 mEq tablet,extended release RxNorm: 131728 1 Tablet(s) PO daily No Start Date Active hydrochlorothiazide 25 mg tablet RxNorm: 580802 1 Tablet(s) PO daily No Start Date Active Eliquis 5 mg tablet RxNorm: 4809671 1 Tablet(s) PO BID No Start Date Active Vitamin D3 2,000 unit tablet RxNorm: 176909 1 Tablet(s) PO daily No Start Date Active amiodarone 200 mg tablet RxNorm: 279078 1 Tablet(s) PO BID No Start Date Active Zetia 10 mg tablet RxNorm: 386054 1 Tablet(s) PO daily No Start Date Active lisinopril 5 mg tablet RxNorm: 908399 1 Tablet(s) PO daily No Start Date Active Lipitor 80 mg tablet RxNorm: 600013 1/2 Tablet(s) PO daily No Start Date Active metoprolol succinate ER 25 mg tablet,extended release 24 hr RxNorm: 400672 1 Tablet(s) PO daily No Start Date 2014 Inactive Entresto 49 mg-51 mg tablet RxNorm: 1709878 1 Tablet(s) PO BID No Start Date 04/19/2018 Inactive sotalol 80 mg tablet RxNorm: 9812909 1 Tablet(s) PO BID No Start Date 04/19/2018 Inactive betamethasone dipropionate 0.05 % topical ointment RxNorm: 777447 1 Application TOP TID to affected area No Start Date 01/2016 Inactive trazodone 50 mg tablet RxNorm: 833804 1 Tablet(s) PO daily No Start Date 03/05/2015 Inactive potassium chloride ER 10 mEq capsule,extended release RxNorm: 172144 1 Capsule(s) PO PRN for swelling take with lasix No Start Date 09/26/2015 Inactive amlodipine 10 mg tablet RxNorm: 914867 1 Tablet(s) PO daily No Start Date 03/05/2015 Inactive isosorbide mononitrate ER 30 mg tablet,extended release 24 hr RxNorm: 334089 1 Tablet(s) PO daily No Start Date 2017 Inactive aspirin 81 mg tablet,delayed release RxNorm: 010741 1 Tablet(s) PO daily No Start Date 02/02/2017 Inactive Lasix 20 mg tablet RxNorm: 507478 1 Tablet(s) PO PRN fror swelling No Start Date 09/26/2015 Inactive Crestor 40 mg tablet RxNorm: 284711 1 Tablet(s) PO daily No Start Date 09/15/2016 Inactive metoprolol succinate ER 100 mg tablet,extended release 24 hr RxNorm: 941813 1 Tablet(s) PO daily No Start Date [...] recurrent, mild ICD-10: F33.0 ICD-9: 296.31 04/20/2018 Encounter for general adult medical examination with abnormal findings ICD-10: Z00.01 ICD-9: V70.0 02/09/2018 Obstructive sleep apnea (adult) (pediatric) ICD-10: G47.33 ICD-9: 327.23 12/16/2017 Essential (primary) hypertension ICD-10: I10 ICD-9: 401.9 08/23/2017 Paroxysmal atrial fibrillation ICD-10: I48.0 ICD-9: 427.31 02/02/2017 Pleurodynia ICD-10: R07.81 ICD-9: 786.50 11/26/2016 Other dorsalgia ICD-10: M54.89 ICD-9: 724.5 11/26/2016 Cough ICD-10: R05 ICD-9: 786.2 11/26/2016 Acute laryngopharyngitis ICD-10: J06.0 ICD-9: 465.0 11/26/2016 Major depressive disorder, recurrent, moderate ICD-10: F33.1 ICD-9: 296.32 10/07/2016 Pain in left knee ICD-10: M25.562 ICD-9: 719.46 10/07/2016 Low back pain ICD-10: M54.5 ICD-9: 724.2 10/07/2016 Rash and other nonspecific skin eruption [...] 530.81 07/09/2015 ESOPHAGEAL REFLUX ICD-9: 530.81 2014 Back pain ICD-9: 724.5 03/06/2015 Insomnia ICD-9: 780.52 03/06/2015 Osteoporosis ICD-9: 733.00 03/06/2015 ESSENTIAL HYPERTENSION ICD-9: 401.9 03/06 Reason For Visit Reason For Visit Effective [...] Item Item Code Result Date Comp Metabolic Ldp741 NA 137 mEq/L 09/30/2015 Comp Metabolic Tys735 K 4.5 mEq/L 09/30/2015 Comp Metabolic Yrz275 CL 102 mEq/L 09/30/2015 Comp Metabolic Cwu154 CO2 26.0 mEq/L 09/30/2015 Comp Metabolic Eof371 ANION GAP 14 09/30/2015 Comp Metabolic Lwk303 GLUCOSE 89 mg/dL 09/30/2015 Comp Metabolic Wrp653 Creat 0.8 mg/dL 09/30/2015 Comp Metabolic Wul548 eGFR 79 ml/min/1.73m2 09/30/2015 Comp Metabolic Zrf389 BUN 14 mg/dL 09/30/2015 Comp Metabolic Vux271 B/C Ratio 18.2 Ratio 09/30/2015 Comp Metabolic Pzo122 CALCIUM 8.9 mg/dL 09/30/2015 Comp Metabolic Yug445 ALK PHOS 65 U/L 09/30/2015 Comp Metabolic Rmb238 AST(SGOT) 26 U/L 09/30/2015 Comp Metabolic Hbu774 ALT(SGPT) 18 U/L 09/30/2015 Comp Metabolic Bdd530 BILI T 0.6 mg/dL 09/30/2015 Comp Metabolic Dkv726 ALBUMIN 3.8 g/dL 09/30/2015 Comp Metabolic Sav945 TPRO 6.6 g/dL 09/30/2015 Comp Metabolic Xed592 GLOB 2.8 g/dL 09/30/2015 Comp Metabolic Ztu423 A/G Ratio 1.4 Ratio 09/30/2015 Comp Metabolic Jwv785 Osmo 274 mOsmo 09/30/2015 Cbc With Differential Ord2 WBC 5.80 K/ul 09/30/2015 Cbc With Differential Ord2 RBC 4.52 M/ul 09/30/2015 Cbc With Differential Ord2 HGB 12.5 g/dl 09/30/2015 Cbc With Differential Ord2 HCT 39.7 % 09/30/2015 Cbc With Differential Ord2 Neut% 66.7 % 09/30/2015 Cbc With Differential Ord2 Lymph% 19.0 % 09/30/2015 Cbc With Differential Ord2 MCV 87.8 fl 09/30/2015 Cbc With Differential Ord2 [place]% 10.7 % 09/30/2015 Cbc With Differential Ord2 [...] 1.10 K/ul 09/30/2015 Cbc With Differential Ord2 [place] ABS# 0.6 K/ul 09/30/2015 Cbc With Differential Ord2 Eos ABS# 0.2 K/ul 09/30/2015 Cbc With Differential Ord2 Baso ABS# 0.0 K/ul 09/30/2015 Cbc With Differential Ord2 New Analyzer Notice Please note new ref ranges starting 08-07-2015 due to implemntation of new five part differential hematolgy analyzer. 09/30/2015 Comp Metabolic Alb196 NA 137 mEq/L 03/06/2015 Comp Metabolic Nap625 K 4.3 mEq/L 03/06/2015 Comp Metabolic Vps545 CL 104 mEq/L 03/06/2015 Comp Metabolic Gpl921 CO2 28.0 mEq/L 03/06/2015 Comp Metabolic Mqw624 ANION GAP 9 03/06/2015 Comp Metabolic Xpl536 GLUCOSE 93 mg/dL 03/06/2015 Comp Metabolic Tdb724 Creat 0.8 mg/dL 03/06/2015 Comp Metabolic Vsv810 eGFR 81 ml/min/1.73m2 03/06/2015 Comp Metabolic Vfs252 BUN 12 mg/dL 03/06/2015 Comp Metabolic Zec395 B/C Ratio 16.0 Ratio 03/06/2015 Comp Metabolic Hpr991 CALCIUM 8.9 mg/dL 03/06/2015 Comp Metabolic Kin456 ALK PHOS 56 U/L 03/06/2015 Comp Metabolic Zof424 AST(SGOT) 22 U/L 03/06/2015 Comp Metabolic Hcf527 ALT(SGPT) 15 U/L 03/06/2015 Comp Metabolic Ekp892 BILI T 0.4 mg/dL 03/06/2015 Comp Metabolic Ibf092 ALBUMIN 4.0 g/dL 03/06/2015 Comp Metabolic Qyd398 TPRO 6.5 g/dL 03/06/2015 Comp Metabolic Gbc456 GLOB 2.5 g/dL 03/06/2015 Comp Metabolic Zpw813 A/G Ratio 1.6 Ratio 03/06/2015 Comp Metabolic Xvz858 Osmo 273 mOsmo 03/06/2015 Vitamin D 25 Oh Wcn9302 VITAMIN D, 25 HYDROXY 28.14 ng/mL Cbc [...] With Differential Ord2 RDW 15.7 % 03/06/2015 Tsh Ord6 hTSH II 1.05 uIU/mL [...] Formatting Model/CDA Sections, Assigned to/Amparo Mims CPT-4: 77836Hntocdw 04/20/2018 PPPS, SUBSEQ VISIT CPT -4: G0439 02/09/2018 PPPS, SUBSEQ VISIT CPT -4: G0439 02/03/2017 ADMIN INFLUENZA VIRUS VAC CPT-4: G0008 04/08/2016 ADMIN PNEUMOCOCCAL VACCINE SNOMED CT: 03277512 CPT-4: G0009 04/08/2016 PNEUMOCOCCAL VACC [address]: 90539905 CPT-4: 17073 04/08/2016 FLU VACC PRSV FREE INC ANTIG CPT-4: 24665 04/08/2016 Vital Signs Date Vital 04/20/2018 Blood Pressure 1: 128/68 Code : 8480-6 BMI: 41.7 Code : 34270-3 Heart Rate 1 : 85 bpm Height: 5'7" SpO2: 94% Weight: 266 lbs 02/09/2018 Blood Pressure 1: 118/70 Code : 8480-6 BMI: 42.1 Code : 36442-6 Heart Rate 1 : 58 bpm Height: 5'7" SpO2: 94% Weight: 269 lbs 12/16/2017 Blood Pressure 1: 132/86 Code : 8480-6 BMI: 42.7 Code : 12667-5 Heart Rate 1 : 63 bpm Height: 5'7" SpO2: 94% Weight: 272 lbs 14 oz 08/23/2017 Blood Pressure 1: 150/82 Code : 8480-6 BMI: 42.0 Code : 88020-8 Heart Rate 1 : 66 bpm Height: 5'7" SpO2: 96% Weight: 268 lbs 02/03/2017 Blood Pressure 1: 138/72 Code : 8480-6 BMI: 41.2 Code : 54037-2 Heart Rate 1 : 96 bpm Height: 5'7" SpO2: 97% Weight: 263 lbs 02/02/2017 Blood Pressure 1: 140/90 Code : 8480-6 BMI: 41.2 Code : 65710-5 Heart Rate 1 : 103 bpm Height: 5'7" SpO2: 94% Weight: 263 lbs 11/26/2016 Blood Pressure 1: 152/88 Code : 8480-6 BMI: 41.0 Code : 16834-5 Heart Rate 1 : 71 bpm Height: 5'7" SpO2: 94% Temperature: 37.7 (C) / 99.8 (F) Weight: 262 lbs 10/07/2016 Blood Pressure 1: 148/82 Code : 8480-6 BMI: 41.7 Code : 99364-7 Heart Rate 1 : 58 bpm Height: 5'7" SpO2: 96% Weight: 266 lbs 09/16/2016 Blood Pressure 1: 122/70 Code : 8480-6 BMI: 42.0 Code : 66271-0 Heart Rate 1 : 65 bpm Height: 5'7" SpO2: 96% Weight: 268 lbs 09/07/2016 Blood Pressure 1: 154/60 Code : 8480-6 BMI: 42.3 Code : 87006-4 Heart Rate 1 : 101 bpm Height: 5'7" SpO2: 97% Weight: 270 lbs 04/08/2016 Blood Pressure 1: 128/70 Code : 8480-6 BMI: 41.4 Code : 41956-0 Heart Rate 1 : 62 bpm Height: 5'7" SpO2: 95% Weight: 264 lbs 8 oz 03/05/2016 Blood Pressure 1: 144/78 Code : 8480-6 Blood Pressure 1: 139/72 Code: 8480-6 BMI: 41.9 Code: 64716-6 Heart Rate 1: 71 bpm Height: 5'7" SpO2: 93% Weight: 267 lbs 8 oz 12/04/2015 Blood Pressure 1: 132/70 Code : 8480-6 BMI: 41.3 Code : 61238-7 Heart Rate 1 : 56 bpm Height: 5'7" SpO2: 96% Weight: 264 lbs 11/18/2015 Blood Pressure 1: 138/72 Code : 8480-6 BMI: 41.0 Code : 00852-1 Heart Rate 1 : 85 bpm Height: 5'7" SpO2: 93% Weight: 262 lbs 09/30/2015 Blood Pressure 1: 128/76 Code : 8480-6 BMI: 41.2 Code : 29101-9 Heart Rate 1 : 70 bpm Height: 5'7" SpO2: 93% Weight: 263 lbs 09/09/2015 Blood Pressure 1: 138/80 Code : 8480-6 BMI: 40.3 Code : 59185-2 Heart Rate 1 : 84 bpm Height: 5'7" SpO2: 95% Weight: 257 lbs 08/28/2015 Blood Pressure 1: 122/72 Code : 8480-6 BMI: 39.6 Code : 51877-8 Heart Rate 1 : 75 bpm Height: 5'7" SpO2: 96% Weight: 253 lbs 07/09/2015 Blood Pressure 1: 135/78 Code : 8480-6 Blood Pressure 1: 140/78 Code: 8480-6 BMI: 39.5 Code: 87590-7 Heart Rate 1: 62 bpm Height: 5'7" SpO2: 95% Weight: 252 lbs 03/06/2015 Blood Pressure 1: 142/88 Code : 8480-6 BMI: 39.3 Code : 60458-5 Heart Rate 1 : 65 bpm Height: [...] data Encounters Encounter Performer Location Codes Date [id number]) 14887 EST. PATIENT, LEVEL IV Diagnosis: Encounter for immunization[ICD10: Z23] Diagnosis: Essential (primary) hypertension[ICD10: I10] Diagnosis: Chronic atrial fibrillation[ICD10: I48.2] Diagnosis: Major depressive disorder, recurrent, mild[ICD10: F33.0] Scarlett Spring MD, [facility] CPT-4: 70397 04/20/2018 [id number]) 84440 EST. PATIENT, LEVEL IV Diagnosis: Essential (primary) hypertension[ICD10: I10] Diagnosis: Obstructive sleep apnea (adult) (pediatric)[ICD10: G47.33] Diagnosis: Chronic atrial fibrillation[ICD10: I48.2] [facility] CPT-4: 53544 12/16/2017 [id number]) 02441 EST. PATIENT, LEVEL IV Diagnosis: Essential (primary) hypertension[ICD10: I10] Diagnosis: Chronic atrial fibrillation[ICD10: I48.2] Scarlett Spring MD, [facility] CPT-4: 13331 08/23/2017 ([id number]) 01461 EST. PATIENT, LEVEL IV Diagnosis: Paroxysmal atrial fibrillation[ICD10: I48.0] Diagnosis: Essential (primary) hypertension[ICD10: I10] Scarlett Spring MD, [facility] CPT-4: 21125 02/02/2017 [id number] EST. PATIENT, LEVEL III Diagnosis: Acute laryngopharyngitis[ICD10: J06.0] Diagnosis: Cough[ICD10: R05] Diagnosis: Pleurodynia[ICD10: R07.81] Diagnosis: Other dorsalgia[ICD10: M54.89] Kassandra Spring MD, [facility] CPT-4 : 86613 11/26/2016 ([id number]) 24904 EST. PATIENT, LEVEL IV Diagnosis: Essential (primary) hypertension[ICD10: I10] Diagnosis: Pain in left knee[ICD10: M25.562] Diagnosis: Low back pain[ICD10: M54.5] Diagnosis: Major depressive disorder, recurrent, moderate[ICD10: F33.1] Scarlett Spring MD, [facility] CPT-4: 26554 10/07/2016 ([id number]) 30221 EST. PATIENT, LEVEL IV Diagnosis: Essential (primary) hypertension[ICD10: I10] Diagnosis: Rash and other nonspecific skin eruption[ICD10: R21] Diagnosis: Major depressive disorder, recurrent, mild[ICD10: F33.0] Scarlett Spring MD, [facility] CPT-4: 98068 09/16/2016 37003 EST. PATIENT, LEVEL IV Diagnosis: Pain in left lower leg[ICD10: M79.662] Diagnosis: Pain in left knee[ICD10: M25.562] Kassandra Spring MD, [facility] CPT -4: 40504 09/07/2016 ([id number]) 35565 EST. PATIENT, LEVEL IV Diagnosis: Encounter for immunization[ICD10: Z23] Diagnosis: Essential (primary) hypertension[ICD10: I10] Diagnosis: Mixed hyperlipidemia[ICD10: E78.2] Scarlett Spring MD, [facility] CPT-4: 89010 04/08/2016 ([id number] 14388 EST. PATIENT, LEVEL III Diagnosis: Essential (primary) hypertension[ICD10: I10] Diagnosis: Shortness of breath[ICD10: R06.02] Scarlett Spring MD [facility] CPT-4: 52924 03/05/2016 ([id number]) 37131 EST. PATIENT, LEVEL III Diagnosis: Chronic obstructive pulmonary disease, unspecified[ICD10: J44.9] Scarlett Spring MD [facility] CPT-4: 23681 12/04/2015 ([id number]) 62624 EST. PATIENT, LEVEL IV Diagnosis: Essential (primary) hypertension[ICD10: I10] Diagnosis: Allergic rhinitis due to pollen[ICD10: J30.1] Scarlett Spring MD [facility] CPT-4: 17790 11/18/2015 ([id number]) 54164 EST. PATIENT, LEVEL IV Diagnosis: Localized edema[ICD10: R60.0] Diagnosis: Dysuria[ICD10: R30.0] Diagnosis: Essential (primary) hypertension[ICD10: I10] Diagnosis: Nausea[ICD10: R11.0] Alis Spring MD [facility] CPT-4: 52224 09/30/2015 ([id number]) 67208 EST. PATIENT, LEVEL II Diagnosis: Methicillin susceptible Staphylococcus aureus infection as the cause of diseases classified elsewhere[ICD10: B95.61] Diagnosis: Methicillin susceptible Staphylococcus aureus infection, unspecified site[ICD10: A49.01] Alis Spring MD [facility] CPT-4: 33012 09/09/2015 ([id number]) 54663 EST. PATIENT, LEVEL III Diagnosis: Dermatophytosis, unspecified[ICD10: B35.9] Diagnosis: Rash and other nonspecific skin eruption[ICD10: R21] Scarlett Spring MD [facility] CPT-4: 11376 08/28/2015 ([id number]) 32216 EST. PATIENT, LEVEL IV Diagnosis: Essential (primary) hypertension[ICD10: I10] Diagnosis: Gastro-esophageal reflux disease without esophagitis[ICD10: K21.9] Diagnosis: Other dorsalgia[ICD10: M54.89] [facility] CPT- 4: 89495 07/09/2015 ([id number]) OFFICE VISIT, NEW - LEVEL 4 Diagnosis: ESSENTIAL HYPERTENSION[ICD9: 401.9] Diagnosis: Osteoporosis[ICD9: 733.00] Diagnosis: Back pain[ICD9: 724.5] Diagnosis: Insomnia[ICD9: 780.52] Diagnosis: ESOPHAGEAL REFLUX[ICD9: 530.81] [facility] CPT- 4: 10941 03/06/2015 Plan of Care Planned Activity Notes [...] shot today. 04/20/2018 Appointment: [facility] WPtel: [address] [place], [place] [id number] (15 min) Moderate 04/20/2018 Patient Education: Patient [...] surrogate. 02/09/2018 App[facility]ment[facility] [phone] [id number] [facility] - Annual Wellness Visit 02/09/2018 [...] every night. 12/16/2017 Appointment: [facility] [phone] [facility] (15 min) Moderate 12/16/2017 Patient Education: Patient [...] becoming uncontrolled. 08/23/2017 Appointment: [facility]Pt[facility]: [phone] [facility] (15 min) Moderate 08/23/2017 Patient Education: Patient [...] to cardiology 02/03/2017 Appointment: Kassandra Argueta WPtel: [facility]7 [facility] [facility] - Annual Wellness Visit 02/03/2017 [...] home. 02/02/2017 Appointment: Scar[place] Spring [facility]Ptel[phone] (15 min) Moderate 02/02/2017 Patient Education: Patient [...] not improve. 11/26/2016 App[facility]ment[facility] (30 min) Complex 11/26/2016 Patient [...] symptoms. 10/07/2016 Appointment: [place] [facility]Ptel[phone] (15 min) Moderate 10/07/2016 Patient Education: Patient Medication Summary Completed 10/07/2016 Patient Education: Obesity Completed 10/07/2016 Patient Education: Hypertension Completed 10/07/2016 Care Plan: VASCULAR STUDY Pending 10/04/2016 Care Plan: X-RAY EXAM OF KNEE 3 [facility] : [id number] Pending 10/04/2016 Visit Plan: Hypertension - well [...] paroxetine 09/16/2016 Appointment: [place] [facility]Ptel[phone] (15 min) Moderate 09/16/2016 Patient Education: Patient [...] not improve. 09/07/2016 Appointment: [facility]gu[facility]el[phone] [place] (10 min) Simple 09/07/2016 [...] mammogram order 04/08/2016 Appointment: [place] [facility]Ptel[phone] [place] (15 min) Moderate 04/08/2016 Patient Education: [...] days. 03/05/2016 Appointment: [place] [facility]Ptel[phone] (15 min) Moderate 03/05/2016 Patient Education: Patient Medication Summary Completed 03/05/2016 Visit Plan: COPD - chronic problem for this patient. We have reviewed chronic treatment strategy, symptom control, and plans for acute exacerbations. No changes today to the current treatment plan as the patient is stable, monitor for acute changes. anoro samples given to the patient 12/04/2015 Appointment: [place] [facility]Ptel[phone] (15 min) Moderate 12/04/2015 Patient Education: Patient [...] spray. 11/18/2015 Appointment: [place] [facility]Ptel[phone] (15 min) Moderate 11/18/2015 Patient Education: Patient Medication Summary Completed 11/18/2015 Patient Education: Obesity Completed 11/18/2015 Patient Education: Hypertension Completed 11/18/2015 Appointment: Scarlett Spring WPtel: [address] [place], [place] [id number] (15 min) Moderate 11/07/2015 Visit Plan: [...] culture report. 08/28/2015 Appointment: Scarlett Spring WPtel: [facility] (15 min) Moderate 08/28/2015 Patient Education: [...] improving. 07/09/2015 Appointment: [place] [facility]Ptel[phone] [place] (15 min) Moderate 07/09/2015 Patient Education: [...] improving. 03/06/2015 Appointment: [place] [facility]Ptel[phone] [place] ([place]) New Patient 03/06/2015 Patient Education: [...] RESOLVED . MSSA of groin and under [id number] bactrim and call if rash does not [...]
--- NOTE | 2018-10-11 10:35 | ED Chest Pain ---
General Chief Complaint: Chest Pain Source: patient Exam Limitations: no limitations History of Present Illness Date Seen by Provider: Oct 11, 2018 Time Seen by Provider: 09:45 Initial Comments Here with chest pain onset 4 AM this morning that she describes is central and radiating left and right. Ultimately called EMS. She did not take Aspirin for EMS because she didn't have her teeth then and could not Moncho but she did get nitroglycerin sublingual 2. This essentially resolved her pain. She reports she still has some mild central pressure. Has felt a little short of breath with the pain but otherwise denies breathing problems, weakness, sweating or vomiting. Timing/Duration: 4-6 hours, changing over time Severity/Quality: moderate, pressure Location: central Radiation: other (across the chest) Activities at Onset: sleep Prior CP/Workup: cardiac cath, echocardiography, stress test ASA po YOUTH MINISTER: No NTG SL YOUTH MINISTER: Yes Associated Symptoms: No abdominal pain, No back pain, No diaphoresis, No fever/ chills, No nausea/vomiting; shortness of breath; No weakness Allergies and Home Medications Allergies Coded Allergies: Iodinated Contrast- Oral and IV Dye (Unverified Allergy, Mild, NAUSEA, 21/02) Pt states it's the IV dye used in heart tests not CT scans penicillin G (Verified Allergy, Mild, RASH, 03/23/18) RASH Home Medications Acetaminophen with Codeine 1 Each Tablet, 1 TAB PO Q6H PRN for PAIN-MODERATE, ( Reported) Amiodarone HCl 200 Mg Tablet, 200 MG PO BID 2 pills BID for 7 days then 1 pill BID Prescribed by: JAIR GONSALES on 04/03/18 1144 Apixaban 5 Mg Tablet, 5 MG PO BID, (Reported) Atorvastatin Calcium 80 Mg Tablet, 40 MG PO DAILY, (Reported) TAKES 1/2 (80MG) TABLET Cholecalciferol (Vitamin D3) 2,000 Unit Tablet, 2,000 UNIT PO DAILY, (Reported) Ezetimibe 10 Mg Tablet, 10 MG PO DAILY, (Reported) Furosemide 20 Mg Tablet, 20 MG PO DAILY, (Reported) Hydrochlorothiazide 25 Mg Tablet, 25 MG PO DAILY, (Reported) Omeprazole 20 Mg Capsule.dr, 20 MG PO DAILY, (Reported) Paroxetine HCl 20 Mg Tablet, 20 MG PO HS, (Reported) Potassium Chloride 10 Meq Tab.er.prt, 10 MEQ PO DAILY, (Reported) Terazosin HCl 5 Mg Capsule, 5 MG PO DAILY, (Reported) Trazodone HCl 50 Mg Tablet, 50 MG PO DAILY, (Reported) Zolpidem Tartrate 10 Mg Tablet, 10 MG PO HS, (Reported) Patient Home Medication List Home Medication List Reviewed: Yes Review of Systems Review of Systems Constitutional: see HPI; No chills, No fever EENTM: No Symptoms Reported Respiratory: See HPI; Denies Cough, Denies Wheezing Cardiovascular: See HPI, Chest Pain; Denies Edema, Denies Irregular Heart Rate Gastrointestinal: No Symptoms Reported Genitourinary: No Symptoms Reported All Other Systems Reviewed Negative Unless Noted: Yes Past Uizufwv-Ktajgb-Vcqskd Hx Past Med/Social Hx: Reviewed Nursing Past Med/Soc Hx Patient Social History Alcohol Use: Denies Use Recreational Drug Use: No Smoking Status: Never a Smoker Type Used: Cigarettes Former Smoker, Quit: Mar 23, 1991 2nd Hand Smoke Exposure: No Recent Foreign Travel: No Contact w/Someone Who Travel: No Recent Hopitalizations: No Immunizations Up To Date Tetanus Booster (TDap): Unknown Date of Pneumonia Vaccine: Mar 23, 2017 Date of Influenza Vaccine: May 26, 2016 Seasonal Allergies Seasonal Allergies: No Past Medical History Surgeries: Yes (HERNIA REPAIR; EGD; VIANCA/CARDIOVERSION) Bladder Surgery, CABG, Eye Surgery, Gallbladder, Orthopedic Respiratory: Yes (sleep apnea no cpap) Sleep Apnea, COPD Currently Using CPAP: No Currently Using BIPAP: No Cardiac: Yes (VIANCA/CARDIOVERSION 04/2017 MOST RECENTLY) Atrial Fibrillation, Coronary Artery Disease, High Cholesterol, Hypertension Neurological: No Reproductive Disorders: No Female Reproductive Disorders: Denies Sexually Transmitted Disease: No HIV/AIDS: No Genitourinary: Yes (bladder sling ) Gastrointestinal: Yes Abdominal Hernia, Gastroesophageal Reflux, Hiatal Hernia, Irritable Bowel Musculoskeletal: Yes (hx fx left wrist, lower back disc ) Degenerate Disk Disease, Arthritis, Chronic Back Pain Endocrine: No HEENT: Yes (bilateral cataracts removed) Cataract Loss of Vision: Denies Hearing Impairment: Hard of Hearing Cancer: No Psychosocial: Yes Anxiety, Depression Integumentary: Yes (chronic abd folds/under breast rash ) Blood Disorders: No Adverse Reaction/Blood Tranf: No Family Medical History Reviewed Nursing Family Hx Arthritis Cardiovascular disease 19 FATHER 19 MOTHER G8 BROTHER FH: UT (myocardial infarction) 19 FATHER ( at 67 from [place]) 19 MOTHER ( at 39 from [place]) Hypertension CAD Over 55 Years Old Physical Exam Vital Signs Vital Signs - First Documented 10/11/18 09:42 Temp 98.7 Pulse 78 Resp 18 B/P (MAP) 150/76 (100) Pulse Ox 94 O2 Delivery Room Air Capillary Refill : Height, Weight, BMI Height: 5'7.00" Weight: 263lbs. 0.0oz. 119.687038hv; 41.2 BMI Method:Estimated General Appearance: No Apparent Distress, WD/WN HEENT: PERRL/EOMI Neck: Non Tender, Supple Respiratory: Lungs Clear, Normal Breath Sounds Cardiovascular: Regular Rate, Rhythm, No Murmur Gastrointestinal: Non Tender, Soft Extremity: Normal Range of Motion, Non Tender Neurologic/Psychiatric: Alert, Oriented x3 Skin: Normal Color, Warm/Dry Progress/Results/Core Measures Results/Orders Lab Results Laboratory Tests Test 10/11/18 09:44 10/11/18 11:45 Range/Units White Blood Count 13.7 H 4.3-11.0 10^3/uL Red Blood Count 4.61 4.35-5.85 10^6/uL Hemoglobin 11.9 11.5-16.0 G/DL Hematocrit 39 35-52 % Mean Corpuscular Volume 84 80-99 FL Mean Corpuscular Hemoglobin 26 25-34 PG Mean Corpuscular Hemoglobin Concent 31 L 32-36 G/DL Red Cell Distribution Width 16.9 H 10.0-14.5 % Platelet Count 291 130-400 10^3/uL Mean Platelet Volume 10.4 7.4-10.4 FL Neutrophils (%) (Auto) 87 H 42-75 % Lymphocytes (%) (Auto) 5 L 12-44 % Monocytes (%) (Auto) 8 0-12 % Eosinophils (%) (Auto) 1 0-10 % Basophils (%) (Auto) 0 0-10 % Neutrophils # (Auto) 11.9 H 1.8-7.8 X 10^3 Lymphocytes # (Auto) 0.6 L 1.0-4.0 X 10^3 Monocytes # (Auto) 1.1 H 0.0-1.0 X 10^3 Eosinophils # (Auto) 0.1 0.0-0.3 10^3/uL Basophils # (Auto) 0.0 0.0-0.1 10^3/uL Neutrophils % (Manual) 80 % Lymphocytes % (Manual) 5 % Monocytes % (Manual) 6 % Eosinophils % (Manual) 4 % Basophils % (Manual) 0 % Band Neutrophils 5 % Poikilocytosis SLIGHT Anisocytosis SLIGHT Elliptocytes SLIGHT Prothrombin Time 25.3 H 12.2-14.7 SEC INR Comment 2.3 H 0.8-1.4 Activated Partial Thromboplast Time 28 24-35 SEC Sodium Level 137 135-145 MMOL/L Potassium Level 3.9 3.6-5.0 MMOL/L Chloride Level 106 98-107 MMOL/L Carbon Dioxide Level 26 21-32 MMOL/L Anion Gap 5 5-14 MMOL/L Blood Urea Nitrogen 16 7-18 MG/DL Creatinine 1.11 0.60-1.30 MG/DL Estimat Glomerular Filtration Rate 48 BUN/Creatinine Ratio 14 Glucose Level 143 H 70-105 MG/DL Calcium Level 8.7 8.5-10.1 MG/DL Corrected Calcium 8.7 8.5-10.1 MG/DL Magnesium Level 1.8 1.8-2.4 MG/DL Total Bilirubin 0.6 0.1-1.0 MG/DL Aspartate Amino Transf (AST/SGOT) 18 5-34 U/L Alanine Aminotransferase (ALT/SGPT) 15 0-55 U/L Alkaline Phosphatase 68 40-136 U/L Myoglobin 65.3 10.0-92.0 NG/ML Troponin I < 0.028 < 0.028 <0.028 NG/ML Total Protein 6.6 6.4-8.2 GM/DL Albumin 4.0 3.2-4.5 GM/DL My Orders Orders - JOSE POTTER MD Ekg Tracing (10/11/18 09:39) Cbc With Automated Diff (10/11/18 09:45) Magnesium (10/11/18 09:45) Chest 1 View, Ap/Pa Only (10/11/18 09:45) Cardiac Profile 1 (10/11/18 09:45) Comprehensive Metabolic Panel (10/11/18 09:45) Myoglobin Serum (10/11/18 09:45) Protime With Inr (10/11/18 09:45) Partial Thromboplastin Time (10/11/18 09:45) O2 (3/19/19 09:45) Monitor-Rhythm Ecg Trace Only (10/11/18 09:45) Lipid Panel (10/12/18 06:00) Saline Lock/Iv-Start (10/11/18 09:45) Aspirin Chewable Tablet (Baby Aspirin Ch (10/11/18 09:45) Manual Differential (10/11/18 09:44) Ekg Tracing (10/11/18 11:46) Troponin I (10/11/18 11:46) Medications Given in ED Current Medications Medications Dose Ordered Sig/Dominique Route Start Time Stop Time Status Last Admin Dose Admin Aspirin 324 mg ONCE ONCE PO 10/11/18 09:45 10/11/18 09:47 DC 10/11/18 10:00 324 MG Vital Signs/I&O 10/11/18 10/11/18 09:42 11:10 Temp 98.7 Pulse 78 68 Resp 18 18 B/P (MAP) 150/76 (100) 146/65 (92) Pulse Ox 94 94 O2 Delivery Room Air Room Air Progress Progress Note : Progress Note Seen and evaluated. IV, labs, EKG, chest x-ray, ASA 324 mg by mouth ordered. Monitor patient. 1036: I have reviewed the labs and previous history including the catheter report. Does have previous history of CABG. Medical therapy indicated on last heart catheter last year. Initial set of labs negative. We will do 2 hour repeat. Monitor patient. 1243: Repeat labs still is negative. Repeat EKG unchanged. Patient is chest pain-free. Discharged home with return precautions. Patient verbalize understanding instructions and agreement with plan. Initial ECG Impression Date: Oct 11, 2018 Initial ECG Impression Time: 09:45 Initial ECG Rate: 74 Initial ECG Rhythm: Normal Sinus Comment Sinus rhythm with normal axis. No evidence of ST elevation [place]. Compared to previous of 04/01/18 and 11/08/17 which were previously atrial fibrillation. Interpreted by me. EKG : EKG Time: 12:37 Rate: 76 Rhythm: Normal Sinus Comment Sinus rhythm with normal axis. No evidence of ST elevation [place]. Similar to previous done earlier today. Interpreted by me. Departure Impression Primary Impression: Chest pain Qualified Codes: R07.9 - Chest pain, unspecified Disposition: 01 HOME, SELF-CARE Condition: Improved Departure-Patient Inst. Decision time for Depature: 12:45 Referrals: BIBIANA KAPADIA MD (PCP/Family) Primary Care Physician MOHSEN TINOCO MD Patient Instructions: Chest Pain (DC) Add. Discharge Instructions: All discharge instructions reviewed with patient and/or family. Voiced understanding. Continue home medications as previously prescribed. Follow-up with Dr. Tinoco in a few days for recheck and further evaluation. Call his office today for appointment. Return for worse pain, fever, vomiting, weakness, breathing problems or other concerns as needed. Copy Copies To 1: MOHSEN TINOCO MD, TIMOTHY D MD Oct 11, 2018 10:35
--- OUTSIDE RECORDS SUMMARY | 2018-10-11 10:40 | XMS REPORT | Continuity of Care Document ---
Author Author [facility] Organization [facility] Address Unknown Phone Unavailable Allergies Active Description Code Type Severity Reaction Onset Reported/Identified Relationship to Patient Clinical Status Yes Iodinated Contrast Media - IV Dye [id number] Drug Allergy Mild NAUSEA 04/24 Yes Iodinated Contrast Media - Oral and [id number] Drug Allergy Mild NAUSEA Yes Iodinated Contrast- Oral and IV Dye [id number] Drug Allergy Mild NAUSEA Yes penicillin G [id number] Drug Allergy Unknown N/A 04/24/2007 Yes penicillin G [id number] Drug Allergy Mild RASH 03/23/2018 Medications There is no data. Problems Date [...] NOS 09/07/2012 Ot 414.01 CORONARY ATHEROSCLEROSIS OF [place] CORON 09/07/2012 Ot 414.2 CHRONIC TOTAL OCCLUSION [...] Eli Ot 724.00 SPINAL STENOSIS NOS 04/02/2013 AKILA SCHAFER, BISI R Ot 724.2 LUMBAGO 04/06/2013 JOSE POTTER MD Ot 724.2 LUMBAGO 04/06/2013 TARIQ SCHAFER, JOSE Santana Ot 724.3 SCIATICA 10/11/2013 TORI SCHAFER, EDD Rojo Ot 327.23 OBSTRUCTIVE SLEEP APNEA (ADULT) (PEDIATR 10/11/2013 TORI SCHAFER, EDD Rojo Ot 401.9 HYPERTENSION NOS 10/11/2013 TORI SCHAFER, EDD Rojo Ot 414.9 CHR ISCHEMIC HRT DIS NOS 11/01/2014 Ot 441.4 11/01/2014 Ot 733.90 11/01/2014 Ot 959.19 11/01/2014 Ot E000.8 11/01/2014 Ot E927.0 11/02/2014 Ot 441.4 11/23/2014 EDD VALLE MD Ot 733.13 11/23/2014 EDD VALLE MD Ot 733.90 12/14/2014 MADELYN SCHAFER, PAMELA Aragon Ot 724.2 12/14/2014 MADELYN SCHAFER, PAMELA Aragon Ot 733.13 02/14/2015 ALEXANDRA SCHAFER, MOHSEN Aragon Ot 272.4 02/14/2015 ALEXANDRA SCHAFER, MOHSEN Aragon Ot 401.9 02/14/2015 ALEXANDRA SCHAFER, MOHSEN Aragon Ot 414.00 02/14/2015 ALEXANDRA SCHAFER, MOHSEN Aragon Ot 786.09 10/13/2015 SHEILA NARAYANAN APRN Ot I50.9 HEART FAILURE, UNSPECIFIED 10/13/2015 SHEILA NARAYANAN METAL SPRAYER PROTECTIVE COATING Ot R60.0 LOCALIZED EDEMA 10/13/2015 SHEILA NARAYANAN APRN Ot Z95.1 PRESENCE OF AORTOCORONARY BYPASS GRAFT 10/15/2015 SHEILA NARAYANAN APRN Ot I50.9 10/15/2015 SHEILA NARAYANAN APRN Ot R60.0 10/15/2015 SHEILA NARAYANAN APRN Ot Z95.1 02/05/2016 MARU TAVERAS Ot I71.4 ABDOMINAL AORTIC ANEURYSM, WITHOUT RUPTU 02/05/2016 MARU TAVERAS Ot I10 ESSENTIAL (PRIMARY) HYPERTENSION 02/05/2016 MARU TAVERAS Ot 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 02/05/2016 MARU TAVERAS Ot I71.4 ABDOMINAL AORTIC ANEURYSM, WITHOUT RUPTU 02/05/2016 VIKTOR PA, MARU K Ot R07.89 OTHER CHEST PAIN 02/10/2016 VIKTOR PA, MARU K Ot I10 ESSENTIAL (PRIMARY) HYPERTENSION 02/10/2016 VIKTOR PA, MARU K Ot 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 02/10/2016 VIKTOR PA, MARU K Ot I71.4 ABDOMINAL AORTIC ANEURYSM, WITHOUT RUPTU 02/10/2016 VIKTOR PA, MARU K Ot R07.89 OTHER CHEST PAIN 02/10/2016 VIKTOR PA, MARU K Ot I71.4 ABDOMINAL AORTIC ANEURYSM, WITHOUT RUPTU 02/10/2016 VIKTOR PA, MARU K Ot I10 ESSENTIAL (PRIMARY) HYPERTENSION 02/10/2016 VIKTOR PA, MARU K Ot 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 02/10/2016 VIKTOR PA, MARU K Ot I71.4 ABDOMINAL AORTIC ANEURYSM, WITHOUT RUPTU 02/10/2016 VIKTOR PA, MARU K Ot R07.89 OTHER CHEST PAIN 02/25/2016 VIKTOR PA, MARU K Ot I10 ESSENTIAL (PRIMARY) HYPERTENSION 02/25/2016 VIKTOR PA, MARU K Ot 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 02/25/2016 VIKTOR PA, MARU K Ot I71.4 ABDOMINAL AORTIC ANEURYSM, WITHOUT RUPTU 02/25/2016 VIKTOR PA, MARU K Ot R07.89 OTHER CHEST PAIN 03/04/2016 VIKTOR PA, MARU K Ot I10 ESSENTIAL (PRIMARY) HYPERTENSION 03/04/2016 VIKTOR PA, MARU K Ot 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 03/04/2016 VIKTOR PA, MARU K Ot I71.4 ABDOMINAL AORTIC ANEURYSM, WITHOUT RUPTU 03/04/2016 VIKTOR PA, MARU K Ot R07.89 OTHER CHEST PAIN 03/05/2016 VIKTOR PA, MARU K Ot I10 ESSENTIAL (PRIMARY) HYPERTENSION 03/05/2016 VIKTOR PA, MARU K Ot 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 03/05/2016 VIKTOR PA, MARU Moore Ot I71.4 ABDOMINAL AORTIC ANEURYSM, WITHOUT RUPTU 03/05/2016 VIKTOR KESHA, MARU Moore Ot R07.89 OTHER CHEST PAIN 03/06/2016 VIKTOR REBOLLEDO, MARU Moore Ot I10 ESSENTIAL (PRIMARY) HYPERTENSION 03/06/2016 VIKTOR KESHA, MARU Moore Ot 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 03/06/2016 VIKTOR REBOLLEDO, MARU Moore Ot I71.4 ABDOMINAL AORTIC ANEURYSM, WITHOUT RUPTU 03/06/2016 VIKTOR REBOLLEDO, MARU Moore Ot R07.89 OTHER CHEST PAIN 03/17/2016 VIKTOR KESHA, MARU Moore Ot I10 ESSENTIAL (PRIMARY) HYPERTENSION 03/17/2016 VIKTOR REBOLLEDO, MARU Moore Ot 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 03/17/2016 VIKTOR REBOLLEDO, MARU Moore Ot I71.4 ABDOMINAL AORTIC ANEURYSM, [...] 08/01/2016 DEMETRIS SCHAFER, RICK Alaniz Ot Z79.82 LONGTERM (CURRENT) USE OF ASPIRIN 08/01/2016 RICK WILLSON MD S Ot Z79.899 OTHER SLATE CUTTER OPERATOR (CURRENT) DRUG THERAPY 08/02/2016 Ot V76.12 OTH SCREEN MAMMO-MALIGN NEOPLASM OF [place] 08/02/2016 Ot 244.8 ACQUIRED HYPOTHYROID NEC 08/02/2016 Ot 250.00 DIAB CHRISSY WO COMPL, TYPE II OR UNSPEC TY 08/02/2016 Ot 272.4 HYPERLIPIDEMIA NEC/NOS 08/02/2016 Ot 401.9 HYPERTENSION NOS 08/02/2016 Ot 414.01 CORONARY ATHEROSCLEROSIS OF [place] CORON 08/02/2016 Ot 272.4 HYPERLIPIDEMIA NEC/NOS 08/02/2016 [...] NOS 08/02/2016 Ot 414.01 CORONARY ATHEROSCLEROSIS OF [place] CORON 08/02/2016 EDD VALLE MD Ot V76.12 OTH SCREEN MAMMO-MALIGN NEOPLASM OF [place] 08/02/2016 EDD VALLE MD Ot 786.05 SHORTNESS OF BREATH 08/02/2016 EDD VALLE MD Ot 496 CHR AIRWAY OBSTRUCT NEC 08/02/2016 EDD VALLE MD Ot 786.05 SHORTNESS OF BREATH 08/02/2016 EDD VALLE MD Ot 441.4 ABDOM AORTIC ANEURYSM 08/02/2016 MEDINAMARU SURESH Ot 272.4 HYPERLIPIDEMIA NEC/NOS 08/02/2016 MARU TAVERAS Ot 327.23 OBSTRUCTIVE SLEEP APNEA (ADULT) (PEDIATR 08/02/2016 MARU TAVERAS Ot 397.0 TRICUSPID VALVE DISEASE 08/02/2016 MARU TAVERAS Ot 401.9 HYPERTENSION NOS 08/02/2016 MARU TAVERAS Ot 414.00 CORON ATHEROSCLER NOS [...] TAVERAS Ot 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 08/02/2016 MARU TAVERAS Ot I71.4 ABDOMINAL AORTIC ANEURYSM, WITHOUT RUPTU 08/02/2016 MARU TAVERAS K Ot R07.89 OTHER CHEST PAIN 08/02/2016 MEDINA-IVONE REBOLLEDO MARU Moore Ot I10 ESSENTIAL (PRIMARY) HYPERTENSION 08/02/2016 MEDINABLAIR REBOLLEDO MARU Moore Ot 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 08/02/2016 MEDINA-IVONE REBOLLEDO MARU Moore Ot I71.4 ABDOMINAL AORTIC ANEURYSM, WITHOUT RUPTU 08/02/2016 MEDINABLAIR REBOLLEDO MARU Moore Ot R07.89 OTHER CHEST PAIN 08/02/2016 MEDINA-IVONE REBOLLEDO MARU Moore Ot I10 ESSENTIAL (PRIMARY) HYPERTENSION 08/02/2016 MEDINA-IVONE REBOLLEDO MARU Moore Ot 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 08/02/2016 MEDINA-IVONE REBOLLEDO MARU Moore Ot I71.4 ABDOMINAL AORTIC ANEURYSM, WITHOUT RUPTU 08/02/2016 MEDINA-IVONE REBOLLEDO MARU Moore Ot R07.89 OTHER CHEST PAIN 08/03/2016 DEMETRIS SCHAFER, RICK Alaniz Ot I10 ESSENTIAL (PRIMARY) HYPERTENSION 08/03/2016 DEMETRIS SCHAFER, RICK Alaniz Ot R07.89 OTHER CHEST PAIN 08/03/2016 DEMETRIS SCHAFER, RICK Alaniz Ot R07.9 CHEST PAIN, UNSPECIFIED 08/03/2016 DEMETRIS SCHAFER, RICK Alaniz Ot R11.0 NAUSEA 08/03/2016 DEMETRIS SCHAFER, RICK Alaniz Ot Z79.82 SLATE CUTTER OPERATOR (CURRENT) USE OF ASPIRIN 08/03/2016 RICK WILLSON MD Ot Z79.899 OTHER LONGTERM (CURRENT) DRUG THERAPY 08/25/2016 Ot V76.12 OTH SCREEN MAMMO-MALIGN NEOPLASM OF [place] 08/25/2016 Ot 244.8 ACQUIRED HYPOTHYROID NEC 08/25/2016 Ot 250.00 DIAB CHRISSY WO COMPL, TYPE II OR UNSPEC TY 08/25/2016 Ot 272.4 HYPERLIPIDEMIA NEC/NOS 08/25/2016 Ot 401.9 HYPERTENSION NOS 08/25/2016 Ot 414.01 CORONARY ATHEROSCLEROSIS OF [place] CORON 08/25/2016 Ot 272.4 HYPERLIPIDEMIA NEC/NOS 08/25/2016 [...] NOS 08/25/2016 Ot 414.01 CORONARY ATHEROSCLEROSIS OF [place] CORON 08/25/2016 EDD VALLE MD Ot V76.12 OTH SCREEN [...] Aragon Ot 733.13 PATHOLOGIC FRACTURE, VERTEBRAE 08/25/2016 TORI SCHAFER, EDD Rojo Ot 733.13 PATHOLOGIC FRACTURE, VERTEBRAE 08/25/2016 TORI SCHAFER, EDD Rojo Ot 733.90 BONE CARTILAGE DIS NOS 08/25/2016 MOHSEN MORRIS MD Ot 272.4 HYPERLIPIDEMIA NEC/NOS 08/25/2016 MOHSEN MORRIS MD Ot 401.9 HYPERTENSION NOS 08/25/2016 MOHSEN MORRIS MD Ot 414.00 CORON ATHEROSCLER NOS TYPE VESSEL, NATIV 08/25/2016 MOHSEN MORRIS MD Ot 786.09 RESPIRATORY ABNORM NEC 08/25/2016 MARU TAVERAS Ot I10 ESSENTIAL (PRIMARY) HYPERTENSION 08/25/2016 MARU TAVERAS Ot 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 08/25/2016 MARU TAVERAS Ot I71.4 ABDOMINAL AORTIC ANEURYSM, WITHOUT RUPTU 08/25/2016 MARU TAVERAS Ot R07.89 OTHER CHEST PAIN 08/25/2016 MARU TAVERAS Ot I10 ESSENTIAL (PRIMARY) HYPERTENSION 08/25/2016 MARU TAVERAS Ot 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 08/25/2016 MARU TAVERAS Ot I71.4 ABDOMINAL AORTIC ANEURYSM, WITHOUT RUPTU 08/25/2016 MARU TAVERAS Ot R07.89 OTHER CHEST PAIN 08/25/2016 MARU TAVERAS Ot I10 ESSENTIAL (PRIMARY) HYPERTENSION 08/25/2016 MARU TAVERAS Ot 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 08/25/2016 MARU TAVERAS Ot I71.4 ABDOMINAL AORTIC ANEURYSM, WITHOUT RUPTU 08/25/2016 MARU TAVERAS Ot R07.89 OTHER CHEST PAIN 08/26/2016 MOHSEN MORRIS MD Ot E78.5 HYPERLIPIDEMIA, UNSPECIFIED 08/26/2016 MOHSEN MORRIS MD Ot I10 ESSENTIAL (PRIMARY) HYPERTENSION 08/26/2016 MOHSEN MORRIS MD Ot 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 08/26/2016 MOHSEN MORRIS MD Ot I27.2 [...] 08/26/2016 MOHSEN MORRIS MD Ot Z79.899 OTHER SLATE CUTTER OPERATOR (CURRENT) DRUG THERAPY 08/26/2016 MOHSEN MORRIS MD Ot Z95.1 PRESENCE OF AORTOCORONARY BYPASS GRAFT 09/02/2016 MOHSEN MORRIS MD Ot E78.5 HYPERLIPIDEMIA, UNSPECIFIED 09/02/2016 MOHSEN MORRIS MD Ot I10 ESSENTIAL (PRIMARY) HYPERTENSION 09/02/2016 MOHSEN MORRIS MD Ot 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 09/02/2016 MOHSEN MORRIS MD Ot I27.2 [...] 09/02/2016 MOHSEN MORRIS MD Ot Z79.899 OTHER SLATE CUTTER OPERATOR (CURRENT) DRUG THERAPY 09/02/2016 MOHSEN MORRIS MD Ot Z95.1 PRESENCE OF AORTOCORONARY BYPASS GRAFT 09/08/2016 AGUSTIN HOWELL METAL SPRAYER PROTECTIVE COATING Ot M79.605 PAIN IN LEFT LEG 09/09/2016 AGUSTIN HOWELL METAL SPRAYER PROTECTIVE COATING Ot M25.562 PAIN IN LEFT KNEE 09/09/2016 AGUSTIN HOWELL METAL SPRAYER PROTECTIVE COATING Ot M79.605 PAIN IN LEFT LEG 09/13/2016 AGUSTIN HOWELL METAL SPRAYER PROTECTIVE COATING Ot M25.562 PAIN IN LEFT KNEE 09/13/2016 AGUSTIN HOWELL METAL SPRAYER PROTECTIVE COATING Ot M79.605 PAIN IN LEFT LEG 09/29/2016 MARU TAVERAS Ot E78.2 MIXED HYPERLIPIDEMIA 09/29/2016 MARU TAVERAS Ot G47.33 OBSTRUCTIVE SLEEP APNEA (ADULT) (PEDIATR 09/29/2016 MARU TAVERAS Ot I10 ESSENTIAL (PRIMARY) HYPERTENSION 09/29/2016 MARU TAVERAS Ot 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 09/30/2016 AGUSTIN HOWELL APRN Ot M25.562 PAIN IN LEFT KNEE 09/30/2016 AGUSTIN HOWELL APRN Ot M79.605 PAIN IN LEFT LEG 10/22/2016 MARU TAVERAS Ot E78.2 MIXED HYPERLIPIDEMIA 10/22/2016 MARU TAVERAS Ot G47.33 OBSTRUCTIVE SLEEP APNEA (ADULT) (PEDIATR 10/22/2016 MARU TAVERAS Ot I10 ESSENTIAL (PRIMARY) HYPERTENSION 10/22/2016 MARU TAVERAS Ot 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 10/24/2016 Ot 401.9 HYPERTENSION NOS 10/24/2016 [...] NOS 12/23/2016 Ot 414.01 CORONARY ATHEROSCLEROSIS OF [place] CORON 12/23/2016 EDD VALLE MD Ot V76.12 OTH SCREEN [...] MARU TAVERAS Ot 401.9 HYPERTENSION NOS 12/23/2016 MRAU TAVERAS Ot 414.00 CORON ATHEROSCLER NOS TYPE [...] Rojo Ot 733.13 PATHOLOGIC FRACTURE, VERTEBRAE 12/23/2016 EDD VALLE MD Ot 733.90 BONE CARTILAGE DIS NOS 12/23/2016 ALEXANDRA SCHAFER, MOHSEN Aragon Ot 272.4 HYPERLIPIDEMIA NEC/NOS 12/23/2016 MOHSEN MORRIS MD Ot 401.9 HYPERTENSION NOS 12/23/2016 MOHSEN MORRIS MD Ot 414.00 CORON ATHEROSCLER NOS TYPE VESSEL, NATIV 12/23/2016 MOHSEN MORRIS MD Ot 786.09 RESPIRATORY ABNORM NEC 12/23/2016 MARU TAVERAS Ot I10 ESSENTIAL (PRIMARY) HYPERTENSION 12/23/2016 MARU TAVERAS Ot 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 12/23/2016 MARU TAVERAS Ot I71.4 ABDOMINAL AORTIC ANEURYSM, WITHOUT RUPTU 12/23/2016 MARU TAVERAS Ot R07.89 OTHER CHEST PAIN 12/23/2016 MARU TAVERAS Ot I10 ESSENTIAL (PRIMARY) HYPERTENSION 12/23/2016 MARU TAVERAS Ot 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 12/23/2016 MARU TAVERAS Ot I71.4 ABDOMINAL AORTIC ANEURYSM, WITHOUT RUPTU 12/23/2016 MARU TAVERAS Ot R07.89 OTHER CHEST PAIN 12/23/2016 MARU TAVERAS Ot I10 ESSENTIAL (PRIMARY) HYPERTENSION 12/23/2016 MARU TAVERAS Ot 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 12/23/2016 MARU TAVERAS Ot I71.4 ABDOMINAL AORTIC ANEURYSM, WITHOUT RUPTU 12/23/2016 MARU TAVERAS Ot R07.89 OTHER CHEST PAIN 12/23/2016 AGUSTIN HOWELL METAL SPRAYER PROTECTIVE COATING Ot M25.562 PAIN IN LEFT KNEE 12/23/2016 AGUSTIN HOWELL METAL SPRAYER PROTECTIVE COATING Ot M79.605 PAIN IN LEFT LEG 12/23/2016 MARU TAVERAS Ot E78.2 MIXED HYPERLIPIDEMIA 12/23/2016 MARU TAVERAS Ot G47.33 OBSTRUCTIVE SLEEP APNEA (ADULT) (PEDIATR 12/23/2016 MARU TAVERAS Ot I10 ESSENTIAL (PRIMARY) HYPERTENSION 12/23/2016 MARU TAVERAS Ot 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 02/16/2017 MARU TAVERAS Ot E78.2 MIXED HYPERLIPIDEMIA 02/16/2017 MARU TAVERAS Ot I10 ESSENTIAL (PRIMARY) HYPERTENSION 02/16/2017 MARU TAVERAS Ot 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 02/16/2017 MARU TAVERAS Ot R00.2 PALPITATIONS 02/23/2017 STEFFI SCHAFER, BIBIANA Roach Ot I49.9 CARDIAC ARRHYTHMIA, UNSPECIFIED 02/23/2017 BIBIANA KAPADIA MD Ot R53.83 OTHER FATIGUE 03/03/2017 MARU TAVERAS Ot E78.2 MIXED HYPERLIPIDEMIA 03/03/2017 MARU TAVERAS Ot I10 ESSENTIAL (PRIMARY) HYPERTENSION 03/03/2017 MARU TAVERAS Ot 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 03/03/2017 MARU TAVERAS Ot R00.2 PALPITATIONS 03/04/2017 MARU TAVERAS Ot E78.2 MIXED HYPERLIPIDEMIA 03/04/2017 MARU TAVERAS Ot I10 ESSENTIAL (PRIMARY) HYPERTENSION 03/04/2017 MARU TAVERAS Ot 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 03/04/2017 MARU TAVERAS Ot R00.2 PALPITATIONS 03/10/2017 MOHSEN MORRIS MD Ot E78.2 MIXED HYPERLIPIDEMIA 03/10/2017 MOHSEN MORRIS MD Ot I10 ESSENTIAL (PRIMARY) HYPERTENSION 03/10/2017 MOHSEN MORRIS MD Ot 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 03/10/2017 MOHSEN MORRIS MD Ot I34.0 NONRHEUMATIC MITRAL (VALVE) INSUFFICIENC 03/10/2017 MOHSEN MORRIS MD Ot I48.0 PAROXYSMAL ATRIAL FIBRILLATION 03/10/2017 MOHSEN MORRIS MD Ot Z79.01 LONGTERM (CURRENT) USE OF ANTICOAGULANT 03/10/2017 MOHSEN MORRIS MD Ot Z79.899 OTHER LONGTERM (CURRENT) DRUG THERAPY 03/10/2017 MOHSEN MORRIS MD Ot Z95.1 PRESENCE OF AORTOCORONARY BYPASS GRAFT 03/23/2017 MOHSEN MORRIS MD Ot E78.2 MIXED HYPERLIPIDEMIA 03/23/2017 MOHSEN MORRIS MD Ot I10 ESSENTIAL (PRIMARY) HYPERTENSION 03/23/2017 MOHSEN MORRIS MD Ot 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 03/23/2017 MOHSEN MORRIS MD Ot I34.0 NONRHEUMATIC MITRAL (VALVE) INSUFFICIENC 03/23/2017 MOHSEN MORRIS MD Ot I48.0 PAROXYSMAL ATRIAL FIBRILLATION 03/23/2017 MOHSEN MORRIS MD Ot 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 03/23/2017 MOHSEN MORRIS MD Ot Z79.899 OTHER SLATE CUTTER OPERATOR (CURRENT) DRUG THERAPY 03/23/2017 MOHSEN MORRIS MD [...] G47.30 SLEEP APNEA, UNSPECIFIED 04/20/2017 SHEILA NARAYANAN METAL SPRAYER PROTECTIVE COATING Ot I10 ESSENTIAL (PRIMARY) HYPERTENSION 04/20/2017 SHEILA NARAYANAN APRN Ot I48.91 UNSPECIFIED ATRIAL FIBRILLATION 04/20/2017 SHEILA NARAYANAN APRN Ot K21.9 GASTRO-ESOPHAGEAL REFLUX DISEASE WITHOUT 04/20/2017 SHEILA NARAYANAN APRN Ot M19.90 UNSPECIFIED OSTEOARTHRITIS, UNSPECIFIED 04/20/2017 SHEILA NARAYANAN APRN Ot R06.02 SHORTNESS OF BREATH 04/20/2017 SHEILA NARAYANAN APRN Ot 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 04/20/2017 SHEILA NARAYANAN [...] MD Ot 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 04/28/2017 MOHSEN MORRIS MD Ot I48.0 PAROXYSMAL ATRIAL FIBRILLATION 04/28/2017 MOHSEN MORRIS MD Ot I71.4 ABDOMINAL AORTIC ANEURYSM, WITHOUT RUPTU 04/28/2017 MOHSEN MORRIS MD Ot Z68.41 BODY MASS INDEX (BMI) 40.0-44.9, ADULT 04/28/2017 MOHSEN MORRIS MD Ot Z79.01 LONGTERM (CURRENT) USE OF ANTICOAGULANT 04/28/2017 MOHSEN MORRIS MD Ot Z79.899 OTHER SLATE CUTTER OPERATOR (CURRENT) DRUG THERAPY 04/28/2017 MOHSEN MORRIS MD, Ot Z87.891 PERSONAL HISTORY OF NICOTINE DEPENDENCE 04/28/2017 MOHSEN MORRIS MD Ot Z95.1 PRESENCE OF AORTOCORONARY BYPASS GRAFT 08/26/2017 ROSIE KIRKAPTRICK DO Ot E78.00 PURE HYPERCHOLESTEROLEMIA, UNSPECIFIED 08/26/2017 [...] NOS 08/26/2017 Ot 414.01 CORONARY ATHEROSCLEROSIS OF [place] CORON 08/26/2017 EDD VALLE MD Ot V76.12 [...] 08/26/2017 Ot 441.4 ABDOM AORTIC ANEURYSM 08/26/2017 MADLEYN SCHAFER, PAMELA Aragon Ot 724.2 LUMBAGO 08/26/2017 MADELYN SCHAFER, PAMELA Aragon Ot 733.13 PATHOLOGIC FRACTURE, VERTEBRAE 08/26/2017 EDD VALLE MD Ot 733.13 PATHOLOGIC FRACTURE, VERTEBRAE 08/26/2017 EDD VALLE MD Ot 733.90 BONE CARTILAGE DIS NOS 08/26/2017 MOHSEN MORRIS MD Ot 272.4 HYPERLIPIDEMIA NEC/NOS 08/26/2017 MOHSEN MORRIS MD Ot 401.9 HYPERTENSION NOS 08/26/2017 MOHSEN MORRIS MD Ot 414.00 CORON ATHEROSCLER NOS TYPE VESSEL, NATIV 08/26/2017 MOHSEN MORRIS MD Ot 786.09 RESPIRATORY ABNORM NEC 08/26/2017 MEDINA-IVONE PA, MARU K Ot I10 ESSENTIAL (PRIMARY) HYPERTENSION 08/26/2017 VIKTOR REBOLLEDO, MARU K Ot 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 08/26/2017 VIKTOR REBOLLEDO, MARU K Ot I71.4 ABDOMINAL AORTIC ANEURYSM, WITHOUT RUPTU 08/26/2017 VIKTOR REBOLLEDO, MARU K Ot R07.89 OTHER CHEST PAIN 08/26/2017 VIKTOR REBOLLEDO, MARU K Ot I10 ESSENTIAL (PRIMARY) HYPERTENSION 08/26/2017 VIKTOR REBOLLEDO, MARU K Ot 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 08/26/2017 VIKTOR REBOLLEDO, MARU K Ot I71.4 ABDOMINAL AORTIC ANEURYSM, WITHOUT RUPTU 08/26/2017 VIKTOR REBOLLEDO, MARU K Ot R07.89 OTHER CHEST PAIN 08/26/2017 VIKTOR REBOLLEDO, MARU K Ot I10 ESSENTIAL (PRIMARY) HYPERTENSION 08/26/2017 VIKTOR REBOLLEDO, MARU K Ot 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 08/26/2017 VIKTOR REBOLLEDO, MARU K Ot I71.4 ABDOMINAL AORTIC ANEURYSM, WITHOUT RUPTU 08/26/2017 VIKTOR REBOLLEDO, MRAU K Ot R07.89 OTHER CHEST PAIN 08/26/2017 AGUSTIN HOWELL METAL SPRAYER PROTECTIVE COATING Ot M25.562 PAIN IN LEFT KNEE 08/26/2017 AGUSTIN HOWELL METAL SPRAYER PROTECTIVE COATING Ot M79.605 PAIN IN LEFT LEG 08/26/2017 VIKTOR REBOLLEDO MARU K Ot E78.2 MIXED HYPERLIPIDEMIA 08/26/2017 VIKTOR REBOLLEDO, MARU K Ot G47.33 OBSTRUCTIVE SLEEP APNEA (ADULT) (PEDIATR 08/26/2017 VIKTOR REBOLLEDO MARU K Ot I10 ESSENTIAL (PRIMARY) HYPERTENSION 08/26/2017 VIKTOR REBOLLEDO, MARU K Ot 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 08/26/2017 BIBIANA KAPADIA MD Ot I49.9 CARDIAC ARRHYTHMIA, UNSPECIFIED 08/26/2017 BIBIANA KAPADIA MD Ot R53.83 OTHER FATIGUE 08/26/2017 MARU TAVERAS K Ot E78.2 MIXED HYPERLIPIDEMIA 08/26/2017 MARU TAVERAS Ot I10 ESSENTIAL (PRIMARY) HYPERTENSION 08/26/2017 MARU TAVERAS Ot 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 08/26/2017 MARU TAVERAS Ot R00.2 PALPITATIONS 08/26/2017 MARU TAVERAS Ot E78.2 MIXED HYPERLIPIDEMIA 08/26/2017 MARU TAVERAS Ot I10 ESSENTIAL (PRIMARY) HYPERTENSION 08/26/2017 MARU TAVERAS Ot 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 08/26/2017 MARU TAVERAS Ot R00.2 PALPITATIONS [...] Ot Z91.041 RADIOGRAPHIC DYE ALLERGY STATUS 09/02/2017 ALEXANDRA SCHAFER, MOHSEN Aragon Ot E78.2 MIXED HYPERLIPIDEMIA 09/02/2017 ALEXANDRA SCHAFER, MOHSEN Aragon Ot I10 ESSENTIAL (PRIMARY) HYPERTENSION 09/02/2017 MOHSEN MORRIS MD Ot 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 09/02/2017 MOHSEN MORRIS MD Ot I48.0 PAROXYSMAL ATRIAL FIBRILLATION 09/02/2017 MOHSEN MORRIS MD Ot R07.89 OTHER CHEST PAIN 09/04/2017 AMANUEL KIRKPATRICK DOA Oscar Ot E78.00 PURE HYPERCHOLESTEROLEMIA, UNSPECIFIED 09/04/2017 CASIMIRO , ROSIE K Ot F32.9 MAJOR DEPRESSIVE DISORDER, SINGLE EPISOD 09/04/2017 CASIMIRO , ROSIE K Ot F41.9 ANXIETY DISORDER, UNSPECIFIED 09/04/2017 CASIMIRO , ROSIE K Ot I10 ESSENTIAL (PRIMARY) HYPERTENSION 09/04/2017 CASIMIRO ROSIE K Ot I48.0 PAROXYSMAL ATRIAL FIBRILLATION 09/04/2017 CASIMIRO ROSIE K Ot J10.1 FLU DUE TO OTH IDENT INFLUENZA VIRUS W O 09/04/2017 CASIMIRO ROSIE K Ot R06.02 SHORTNESS OF BREATH 09/04/2017 CASIMIRO ROSIE Oscar Ot Z87.891 PERSONAL HISTORY OF NICOTINE DEPENDENCE 09/04/2017 CASIMIRO ROSIE Oscar Ot Z88.0 ALLERGY STATUS TO PENICILLIN 09/04/2017 CASIMIRO RSOIE Moore Ot Z91.041 RADIOGRAPHIC DYE ALLERGY STATUS 09/22/2017 MOHSEN MORRIS MD Ot E78.2 MIXED HYPERLIPIDEMIA 09/22/2017 MOHSEN MORRIS MD Ot I10 ESSENTIAL (PRIMARY) HYPERTENSION 09/22/2017 MOHSEN MORRIS MD Ot 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 09/22/2017 MOHSEN MORRIS MD Ot I48.0 PAROXYSMAL ATRIAL FIBRILLATION 09/22/2017 MOHSEN MORRIS MD Ot R07.89 OTHER CHEST PAIN 10/27/2017 PREMA MALIK MD Ot E78.00 PURE HYPERCHOLESTEROLEMIA, UNSPECIFIED 10/27/2017 PREMA MALIK MD Ot F32.9 MAJOR DEPRESSIVE DISORDER, SINGLE EPISOD 10/27/2017 PREMA MALIK MD Ot F41.9 ANXIETY DISORDER, UNSPECIFIED 10/27/2017 PREMA MALIK MD Ot G47.30 SLEEP APNEA, UNSPECIFIED 10/27/2017 PREMA MALIK MD Ot I10 ESSENTIAL (PRIMARY) HYPERTENSION 10/27/2017 PREMA MALIK MD Ot J81.1 CHRONIC PULMONARY EDEMA 10/27/2017 PREMA MALIK MD Ot K21.9 GASTRO-ESOPHAGEAL REFLUX DISEASE WITHOUT 10/27/2017 PREMA MALIK MD Ot R06.02 SHORTNESS OF BREATH 10/27/2017 PREMA MALIK MD Ot 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 10/27/2017 PREMA MALIK MD Ot Z82.49 FAMILY HX OF ISCHEM HEART DIS AND OTH DI 10/27/2017 PREMA MALIK MD Ot Z87.19 PERSONAL HISTORY OF OTHER DISEASES OF 10/27/2017 PREMA MALIK MD Ot Z87.891 PERSONAL HISTORY OF NICOTINE DEPENDENCE 10/27/2017 PREMA MALIK MD Ot Z88.0 ALLERGY STATUS TO PENICILLIN 10/27/2017 PREMA MALIK MD, Ot Z91.041 RADIOGRAPHIC DYE ALLERGY STATUS 10/27/2017 PREMA MALIK MD Ot Z96.0 PRESENCE OF UROGENITAL IMPLANTS 11/10/2017 MOHSEN MORRIS MD Ot E78.5 HYPERLIPIDEMIA, UNSPECIFIED 11/10/2017 MOHSEN MORRIS MD Ot G47.33 OBSTRUCTIVE SLEEP APNEA (ADULT) (PEDIATR 11/10/2017 MOHSEN MORRIS MD Ot I10 ESSENTIAL (PRIMARY) HYPERTENSION 11/10/2017 MOHSEN MORRIS MD Ot 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 11/10/2017 MOHSEN MORRIS MD Ot I27.20 PULMONARY HYPERTENSION, UNSPECIFIED 11/10/2017 MOHSEN MORRIS MD Ot I48.0 PAROXYSMAL ATRIAL FIBRILLATION 11/10/2017 MOHSEN MORRIS MD Ot I65.23 OCCLUSION AND STENOSIS OF BILATERAL ABURTO 11/10/2017 MOHSEN MORRIS MD Ot J44.9 CHRONIC OBSTRUCTIVE PULMONARY DISEASE, U 11/10/2017 MOHSEN MORRIS MD Ot K22.5 DIVERTICULUM OF ESOPHAGUS, ACQUIRED 11/10/2017 MOHSEN MORRIS MD Ot K29.70 GASTRITIS, UNSPECIFIED, WITHOUT BLEEDING 11/10/2017 MOHSEN MORRIS MD Ot Q21.1 ATRIAL SEPTAL DEFECT 11/10/2017 MOHSEN MORRIS MD Ot R07.9 CHEST PAIN, UNSPECIFIED 11/10/2017 MOHSEN MORRIS MD Ot R60.0 LOCALIZED EDEMA 11/10/2017 MOHSEN MORRIS MD Ot Z86.79 PERSONAL HISTORY OF OTHER DISEASES OF 11/10/2017 MOHSEN MORRIS MD Ot Z91.19 PATIENT'S NONCOMPLIANCE W [facility] MEDICAL TR 11/10/2017 MOHSEN MORRIS MD Ot Z95.1 PRESENCE OF AORTOCORONARY BYPASS GRAFT 11/11/2017 MOHSEN MORRIS MD Ot E78.5 HYPERLIPIDEMIA, UNSPECIFIED 11/11/2017 MOHSEN MORRIS MD Ot G47.33 OBSTRUCTIVE SLEEP APNEA (ADULT) (PEDIATR 11/11/2017 MOHSEN MORRIS MD Ot I10 ESSENTIAL (PRIMARY) HYPERTENSION 11/11/2017 MOHSEN MORRIS MD Ot 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 11/11/2017 MOHSEN MORRIS MD Ot I27.20 PULMONARY HYPERTENSION, UNSPECIFIED 11/11/2017 MOHSEN MORRIS MD Ot I48.0 PAROXYSMAL ATRIAL FIBRILLATION 11/11/2017 MOHSEN MORRIS MD Ot I65.23 OCCLUSION AND STENOSIS OF BILATERAL [place] 11/11/2017 MOHSEN MORRIS MD Ot J44.9 CHRONIC OBSTRUCTIVE PULMONARY DISEASE, U 11/11/2017 MOHSEN MORRIS MD Ot K22.5 DIVERTICULUM OF ESOPHAGUS, ACQUIRED 11/11/2017 MOHSEN MORRIS MD Ot K29.70 GASTRITIS, UNSPECIFIED, WITHOUT BLEEDING 11/11/2017 MOHSEN MORRIS MD Ot Q21.1 ATRIAL SEPTAL DEFECT 11/11/2017 MOHSEN MORRIS MD Ot R07.9 CHEST PAIN, UNSPECIFIED 11/11/2017 MOHSEN MORRIS MD Ot R60.0 LOCALIZED EDEMA 11/11/2017 MOHSEN MORRIS MD Ot Z86.79 PERSONAL HISTORY OF OTHER DISEASES OF TH 11/11/2017 MOHSEN MORRIS MD Ot Z91.19 PATIENT'S NONCOMPLIANCE W [facility] TR 11/11/2017 MOHSEN MORRIS MD Ot Z95.1 PRESENCE OF AORTOCORONARY BYPASS GRAFT 11/11/2017 MOHSEN MRORIS MD Ot E78.5 HYPERLIPIDEMIA, UNSPECIFIED 11/11/2017 MOHSEN MORRIS MD Ot G47.33 OBSTRUCTIVE SLEEP APNEA (ADULT) (PEDIATR 11/11/2017 MOHSEN MORRIS MD Ot I10 ESSENTIAL (PRIMARY) HYPERTENSION 11/11/2017 MOHSEN MORRIS MD Ot 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 11/11/2017 MOHSEN MORRIS MD Ot I27.20 PULMONARY HYPERTENSION, UNSPECIFIED 11/11/2017 MOHSEN MORRIS MD Ot I48.0 PAROXYSMAL ATRIAL FIBRILLATION 11/11/2017 MOHSEN MORRIS MD Ot I65.23 OCCLUSION AND STENOSIS OF BILATERAL ABURTO 11/11/2017 MOHSEN MORRIS MD Ot I73.9 PERIPHERAL VASCULAR DISEASE, UNSPECIFIED 11/11/2017 MOHSEN MORRIS MD, Ot J44.9 CHRONIC OBSTRUCTIVE PULMONARY DISEASE, U 11/11/2017 MOHSEN MORRIS MD Ot K22.5 DIVERTICULUM OF ESOPHAGUS, ACQUIRED 11/11/2017 MOHSEN MORRIS MD Ot K29.70 GASTRITIS, UNSPECIFIED, WITHOUT BLEEDING 11/11/2017 MOHSEN MORRIS MD Ot Q21.1 ATRIAL SEPTAL DEFECT 11/11/2017 MOHSEN MORRIS MD, Ot R07.9 CHEST PAIN, UNSPECIFIED 11/11/2017 MOHSEN MORRIS MD Ot R60.0 LOCALIZED EDEMA 11/11/2017 MOHSEN MORRIS MD Ot Z86.79 PERSONAL HISTORY OF OTHER DISEASES OF TH 11/11/2017 MOHSEN MORRIS MD, Ot Z91.19 PATIENT'S NONCOMPLIANCE W [facility] TR 11/11/2017 MOHSEN MORRIS MD, Ot Z95.1 PRESENCE OF AORTOCORONARY BYPASS GRAFT 12/04/2017 RAFFY CALLOWAY Ot G47.33 OBSTRUCTIVE SLEEP APNEA (ADULT) (PEDIATR 12/06/2017 RAFFY CALLOWAY Ot G47.33 OBSTRUCTIVE SLEEP APNEA (ADULT) (PEDIATR 03/10/2018 JUAN SCHAFER, MARINA Carrillo Ot G47.33 OBSTRUCTIVE SLEEP APNEA (ADULT) (PEDIATR 03/14/2018 EDD VALLE MD, Ot V76.12 OT SCREEN MAMMO-MALIGN NEOPLASM OF [place] 03/14/2018 EDD VALLE MD Ot 786.05 SHORTNESS OF BREATH 03/14/2018 EDD VALLE MD Ot 496 CHR AIRWAY OBSTRUCT NEC 03/14/2018 EDD VALLE MD Ot 786.05 SHORTNESS OF BREATH 03/14/2018 EDD VALLE MD Ot 441.4 ABDOM AORTIC ANEURYSM 03/14/2018 MARU TAVERAS Ot 272.4 HYPERLIPIDEMIA NEC/NOS 03/14/2018 MARU TAVERAS Ot 327.23 OBSTRUCTIVE SLEEP APNEA (ADULT) (PEDIATR 03/14/2018 MARU TAVERAS Ot 397.0 TRICUSPID VALVE DISEASE 03/14/2018 MARU TAVERAS Ot 401.9 HYPERTENSION NOS 03/14/2018 MARU TAVERAS Ot 414.00 CORON ATHEROSCLER NOS TYPE VESSEL, NATIV 03/14/2018 MARU TAVERAS Ot 424.0 MITRAL VALVE DISORDER 03/14/2018 MARU TAVERAS Ot 745.5 SECUNDUM ATRIAL SEPT DEF 03/14/2018 Ot 441.4 ABDOM AORTIC ANEURYSM 03/14/2018 Ot 733.90 BONE CARTILAGE DIS NOS 03/14/2018 Ot 959.19 OTH INJURY OF OTHER SITES OF TRUNK 03/14/2018 Ot E000.8 OTHER EXTERNAL CAUSE STATUS 03/14/2018 Ot E927.0 OVEREXERTION FROM SUDDEN STRENUOUS MOVEM 03/14/2018 Ot 441.4 ABDOM AORTIC ANEURYSM 03/14/2018 MADELYN SCHAFER, APMELA Aragon Ot 724.2 LUMBAGO 03/14/2018 MADELYN SCHAFER, PAMELA Aragon Ot 733.13 PATHOLOGIC FRACTURE, VERTEBRAE 03/14/2018 TORI SCHAFER, EDD Rojo Ot 733.13 PATHOLOGIC FRACTURE, VERTEBRAE 03/14/2018 EDD VALLE MD Ot 733.90 BONE CARTILAGE DIS NOS 03/14/2018 ALEXANDRA SCHAFER, MOHSEN Aragon Ot 272.4 HYPERLIPIDEMIA NEC/NOS 03/14/2018 MOHSEN MORRIS MD Ot 401.9 HYPERTENSION NOS 03/14/2018 MOHSEN MORRIS MD Ot 414.00 CORON ATHEROSCLER NOS TYPE VESSEL, NATIV 03/14/2018 MOHSEN MORRIS MD Ot 786.09 RESPIRATORY ABNORM NEC 03/14/2018 MARU TAVERAS Ot I10 ESSENTIAL (PRIMARY) HYPERTENSION 03/14/2018 MARU TAVERAS Ot 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 03/14/2018 MARU TAVERAS Ot I71.4 ABDOMINAL AORTIC ANEURYSM, WITHOUT RUPTU 03/14/2018 MARU TAVERAS Ot R07.89 OTHER CHEST PAIN 03/14/2018 MARU TAVERAS Ot I10 ESSENTIAL (PRIMARY) HYPERTENSION 03/14/2018 VIKTOR REBOLLEDO, MARU Moore Ot 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 03/14/2018 VIKTOR REBOLLEDO, MARU Moore Ot I71.4 ABDOMINAL AORTIC ANEURYSM, WITHOUT RUPTU 03/14/2018 VIKTOR REBOLLEDO, MARU K Ot R07.89 OTHER CHEST PAIN 03/14/2018 VIKTOR REBOLLEDO, MARU Moore Ot I10 ESSENTIAL (PRIMARY) HYPERTENSION 03/14/2018 VIKTOR REBOLLEDO, MARU K Ot 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 03/14/2018 VIKTOR REBOLLEDO, MARU Moore Ot I71.4 ABDOMINAL AORTIC ANEURYSM, WITHOUT RUPTU 03/14/2018 VIKTOR REBOLLEDO, MARU Moore Ot R07.89 OTHER CHEST PAIN 03/14/2018 AGUSTIN HOWELL METAL SPRAYER PROTECTIVE COATING Ot M25.562 PAIN IN LEFT KNEE 03/14/2018 AGUSTIN HOWELL METAL SPRAYER PROTECTIVE COATING Ot M79.605 PAIN IN LEFT LEG 03/14/2018 MARU TAVERAS K Ot E78.2 MIXED HYPERLIPIDEMIA 03/14/2018 VIKTOR REBOLLEDO, MARU Moore Ot G47.33 OBSTRUCTIVE SLEEP APNEA (ADULT) (PEDIATR 03/14/2018 MARU TAVERAS Ot I10 ESSENTIAL (PRIMARY) HYPERTENSION 03/14/2018 VIKTOR REBOLLEDO, MARU Moore Ot 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 03/14/2018 STEFFI SCHAFER, BIBIANA Roach Ot I49.9 CARDIAC ARRHYTHMIA, UNSPECIFIED 03/14/2018 STEFFI SCHAFER, BIBIANA Roach Ot R53.83 OTHER FATIGUE 03/14/2018 VIKTOR REBOLLEDO, MARU Moore Ot E78.2 MIXED HYPERLIPIDEMIA 03/14/2018 VIKTOR REBOLLEDO, MARU K Ot I10 ESSENTIAL (PRIMARY) HYPERTENSION 03/14/2018 VIKTOR REBOLLEDO, MARU Moore Ot 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 03/14/2018 MARU TAVERAS Ot R00.2 PALPITATIONS 03/14/2018 MARU TAVERAS Ot E78.2 MIXED HYPERLIPIDEMIA 03/14/2018 MARU TAVERAS Ot I10 ESSENTIAL (PRIMARY) HYPERTENSION 03/14/2018 MARU TAVERAS Ot 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 03/14/2018 MARU TAVERAS Ot R00.2 PALPITATIONS 03/14/2018 MOHSEN MORRIS MD Ot E78.2 MIXED HYPERLIPIDEMIA 03/14/2018 MOHSEN MORRIS MD Ot I10 ESSENTIAL (PRIMARY) HYPERTENSION 03/14/2018 ALEXANDRA SCHAFER, MOHSEN Aragon Ot 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 03/14/2018 MOHSEN MORRIS MD Ot I48.0 PAROXYSMAL ATRIAL FIBRILLATION 03/14/2018 MOHSEN MORRIS MD Ot R07.89 OTHER CHEST PAIN 03/15/2018 JUAN SCHAFER, MARINA Carrillo Ot G47.33 OBSTRUCTIVE SLEEP APNEA (ADULT) (PEDIATR 03/18/2018 Ot E78.5 HYPERLIPIDEMIA, UNSPECIFIED 03/18/2018 Ot I10 ESSENTIAL ( PRIMARY) HYPERTENSION 03/18/2018 Ot 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 03/18/2018 Ot R07.89 OTHER CHEST PAIN 03/23/2018 MOHSEN MORRIS MD Ot E66.9 OBESITY, UNSPECIFIED 03/23/2018 MOHSEN MORRIS MD Ot E78.5 HYPERLIPIDEMIA, UNSPECIFIED 03/23/2018 MOHSEN MORRIS MD Ot G47.33 OBSTRUCTIVE SLEEP APNEA (ADULT) (PEDIATR 03/23/2018 MOHSEN MORRIS MD Ot I10 ESSENTIAL (PRIMARY) HYPERTENSION 03/23/2018 MOHSEN MORRIS MD Ot 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 03/23/2018 MOHSEN MORRIS MD Ot I27.20 PULMONARY HYPERTENSION, UNSPECIFIED 03/23/2018 MOHSEN MORRIS MD Ot I48.0 PAROXYSMAL ATRIAL FIBRILLATION 03/23/2018 MOHSEN MORRIS MD Ot I50.9 HEART FAILURE, UNSPECIFIED 03/23/2018 MOHSEN MORRIS MD Ot K29.70 GASTRITIS, UNSPECIFIED, WITHOUT BLEEDING 03/23/2018 MOHSEN MORRIS MD Ot R07.9 CHEST PAIN, UNSPECIFIED 03/23/2018 MOHSEN MORRIS MD Ot Z68.41 BODY MASS INDEX (BMI) 40.0-44.9, ADULT 03/23/2018 MOHSEN MORRIS MD Ot Z79.899 OTHER LONGTERM (CURRENT) DRUG THERAPY 03/23/2018 MOHSEN MORRIS MD Ot Z87.891 PERSONAL HISTORY OF NICOTINE DEPENDENCE 03/23/2018 MOHSEN MORRIS MD Ot Z95.1 PRESENCE OF AORTOCORONARY BYPASS GRAFT 03/25/2018 MARU TAVERAS Ot E78.2 MIXED HYPERLIPIDEMIA 03/25/2018 MARU TAVERAS Ot I10 ESSENTIAL (PRIMARY) HYPERTENSION 03/25/2018 MARU TAVERAS Ot 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 03/25/2018 MARU TAVERAS Ot R07.89 OTHER CHEST PAIN 03/25/2018 MOHSEN MORRIS MD Ot E66.9 OBESITY, UNSPECIFIED 03/25/2018 MOHSEN MORRIS MD Ot E78.5 HYPERLIPIDEMIA, UNSPECIFIED 03/25/2018 MOHSEN MORRIS MD Ot G47.33 OBSTRUCTIVE SLEEP APNEA (ADULT) (PEDIATR 03/25/2018 MOHSEN MORRIS MD Ot I10 ESSENTIAL (PRIMARY) HYPERTENSION 03/25/2018 MOHSEN MORRIS MD Ot 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 03/25/2018 MOHSEN MORRIS MD Ot I27.20 PULMONARY HYPERTENSION, UNSPECIFIED 03/25/2018 MOHSEN MORRIS MD Ot I48.0 PAROXYSMAL ATRIAL FIBRILLATION 03/25/2018 MOHSEN MORRIS MD Ot I50.9 HEART FAILURE, UNSPECIFIED 03/25/2018 MOHSEN MORRIS MD Ot K29.70 GASTRITIS, UNSPECIFIED, WITHOUT BLEEDING 03/25/2018 MOHSEN MORRIS MD Ot R07.9 CHEST PAIN, UNSPECIFIED 03/25/2018 MOHSEN MORRIS MD Ot Z68.41 BODY MASS INDEX (BMI) 40.0-44.9, ADULT 03/25/2018 MOHSEN MORRIS MD Ot Z79.899 OTHER LONGTERM (CURRENT) DRUG THERAPY 03/25/2018 MOHSEN MORRIS MD Ot Z87.891 PERSONAL HISTORY OF NICOTINE DEPENDENCE 03/25/2018 MOHSEN MORRIS MD Ot Z95.1 PRESENCE OF AORTOCORONARY BYPASS GRAFT 04/03/2018 GONSALES DO, JAIR Ot E78.5 HYPERLIPIDEMIA, UNSPECIFIED 04/03/2018 GONSALES DO, JAIR Ot F32.9 MAJOR DEPRESSIVE DISORDER, SINGLE EPISOD 04/03/2018 GONSALES DO, JAIR Ot F41.9 ANXIETY DISORDER, UNSPECIFIED 04/03/2018 GONSALES DO, JAIR Ot G47.00 INSOMNIA, UNSPECIFIED 04/03/2018 GONSALES DO, JAIR Ot G47.33 OBSTRUCTIVE SLEEP APNEA (ADULT) (PEDIATR 04/03/2018 GONSALES DO, JAIR Ot I11.0 HYPERTENSIVE HEART DISEASE WITH HEART FA 04/03/2018 GONSALES DO, JAIR Ot 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 04/03/2018 GONSALES DO, JAIR Ot I48.0 PAROXYSMAL ATRIAL FIBRILLATION 04/03/2018 GONSALES DO, JAIR Ot I50.20 UNSPECIFIED SYSTOLIC (CONGESTIVE) HEART 04/03/2018 GONSALES DO JAIR Ot J44.9 CHRONIC OBSTRUCTIVE PULMONARY DISEASE, U 04/03/2018 GONSALES DO JAIR Ot K21.9 GASTRO-ESOPHAGEAL REFLUX DISEASE WITHOUT 04/03/2018 GONSALES DO, JAIR Ot Z87.891 PERSONAL HISTORY OF NICOTINE DEPENDENCE 04/03/2018 GONSALESTERA VALENTIN JAIR Ot Z95.1 PRESENCE OF AORTOCORONARY BYPASS GRAFT 04/15/2018 Ot E78.5 HYPERLIPIDEMIA, UNSPECIFIED 04/15/2018 Ot I10 ESSENTIAL ( PRIMARY) HYPERTENSION 04/15/2018 Ot 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 04/15/2018 Ot R07.89 OTHER CHEST PAIN 07/04/2018 EDD VALLE MD Ot V76.12 OTH SCREEN MAMMO-MALIGN NEOPLASM OF [place] 07/04/2018 EDD VALLE MD Ot 786.05 SHORTNESS OF BREATH 07/04/2018 EDD VALLE MD Ot 496 CHR AIRWAY OBSTRUCT NEC 07/04/2018 EDD VALLE MD Ot 786.05 SHORTNESS OF BREATH 07/04/2018 EDD VALLE MD Ot 441.4 ABDOM AORTIC ANEURYSM 07/04/2018 MARU TAVERAS Ot 272.4 HYPERLIPIDEMIA NEC/NOS 07/04/2018 MARU TAVERAS Ot 327.23 OBSTRUCTIVE SLEEP APNEA (ADULT) (PEDIATR 07/04/2018 MARU TAVERAS Ot 397.0 TRICUSPID VALVE DISEASE 07/04/2018 MARU TAVERAS Ot 401.9 HYPERTENSION NOS 07/04/2018 MARU TVAERAS Ot 414.00 CORON ATHEROSCLER NOS TYPE VESSEL, NATIV 07/04/2018 MARU TAVERAS Ot 424.0 MITRAL VALVE DISORDER 07/04/2018 MARU TAVERAS Ot 745.5 SECUNDUM ATRIAL SEPT DEF 07/04/2018 Ot 441.4 ABDOM AORTIC ANEURYSM 07/04/2018 Ot 733.90 BONE CARTILAGE DIS NOS 07/04/2018 Ot 959.19 OTH INJURY OF OTHER SITES OF TRUNK 07/04/2018 Ot E000.8 OTHER EXTERNAL CAUSE STATUS 07/04/2018 Ot E927.0 OVEREXERTION FROM SUDDEN STRENUOUS MOVEM 07/04/2018 Ot 441.4 ABDOM AORTIC ANEURYSM 07/04/2018 MADELYN SCHAFER, PAMELA Aragon Ot 724.2 LUMBAGO 07/04/2018 MADELYN SCHAFER, PAMELA Aragon Ot 733.13 PATHOLOGIC FRACTURE, VERTEBRAE 07/04/2018 TORI SCHAFER, EDD Rojo Ot 733.13 PATHOLOGIC FRACTURE, VERTEBRAE 07/04/2018 EDD VALLE MD Ot 733.90 BONE CARTILAGE DIS NOS 07/04/2018 MOHSEN MORRIS MD Ot 272.4 HYPERLIPIDEMIA NEC/NOS 07/04/2018 MOHSEN MORRIS MD Ot 401.9 HYPERTENSION NOS 07/04/2018 MOHSEN MORRIS MD Ot 414.00 CORON ATHEROSCLER NOS TYPE VESSEL, NATIV 07/04/2018 MOHSEN MORRIS MD Ot 786.09 RESPIRATORY ABNORM NEC 07/04/2018 MARU TAVERAS Ot I10 ESSENTIAL (PRIMARY) HYPERTENSION 07/04/2018 MARU TAVERAS Ot 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 07/04/2018 MARU TAVERAS Ot I71.4 ABDOMINAL AORTIC ANEURYSM, WITHOUT RUPTU 07/04/2018 MARU TAVERAS Ot R07.89 OTHER CHEST PAIN 07/04/2018 MEDINA-IVONE PA, MARU K Ot I10 ESSENTIAL (PRIMARY) HYPERTENSION 07/04/2018 VIKTOR REBOLLEDO, MARU K Ot 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 07/04/2018 VIKTOR REBOLLEDO, MARU K Ot I71.4 ABDOMINAL AORTIC ANEURYSM, WITHOUT RUPTU 07/04/2018 VIKTOR REBOLLEDO, MARU K Ot R07.89 OTHER CHEST PAIN 07/04/2018 VIKTOR REBOLLEDO, MARU K Ot I10 ESSENTIAL (PRIMARY) HYPERTENSION 07/04/2018 VIKTOR REBOLLEDO, MARU K Ot 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 07/04/2018 VIKTOR REBOLLEDO, MARU K Ot I71.4 ABDOMINAL AORTIC ANEURYSM, WITHOUT RUPTU 07/04/2018 VIKTOR REBOLLEDO, MARU K Ot R07.89 OTHER CHEST PAIN 07/04/2018 AGUSTIN HOWELL METAL SPRAYER PROTECTIVE COATING Ot M25.562 PAIN IN LEFT KNEE 07/04/2018 AGUSTIN HOWELL METAL SPRAYER PROTECTIVE COATING Ot M79.605 PAIN IN LEFT LEG 07/04/2018 VIKTOR REBOLLEDO, MARU K Ot E78.2 MIXED HYPERLIPIDEMIA 07/04/2018 VIKTOR REBOLLEDO, MARU K Ot G47.33 OBSTRUCTIVE SLEEP APNEA (ADULT) (PEDIATR 07/04/2018 VIKTOR REBOLLEDO, MARU K Ot I10 ESSENTIAL (PRIMARY) HYPERTENSION 07/04/2018 VIKTOR REBOLLEDO, MARU K Ot 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 07/04/2018 STEFFI SCHAFER, BIBIANA Roach Ot I49.9 CARDIAC ARRHYTHMIA, UNSPECIFIED 07/04/2018 STEFFI SCHAFER, BIBIANA Roach Ot R53.83 OTHER FATIGUE 07/04/2018 VIKTOR REBOLLEDO, MARU K Ot E78.2 MIXED HYPERLIPIDEMIA 07/04/2018 VIKTOR REBOLLEDO, MARU K Ot I10 ESSENTIAL (PRIMARY) HYPERTENSION 07/04/2018 VIKTOR REBOLLEDO, MARU K Ot 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 07/04/2018 VIKTOR REBOLLEDO, MARU K Ot R00.2 PALPITATIONS 07/04/2018 VIKTOR REBOLLEDO, MARU K Ot E78.2 MIXED HYPERLIPIDEMIA 07/04/2018 MARU TAVERAS Ot I10 ESSENTIAL (PRIMARY) HYPERTENSION 07/04/2018 VIKTOR REBOLLEDO MARU K Ot 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 07/04/2018 MARU TAVERAS Ot R00.2 PALPITATIONS 07/04/2018 ALEXANDRA SCHAFER, MOHSEN Aragon Ot E78.2 MIXED HYPERLIPIDEMIA 07/04/2018 ALEXANDRA SCHAFER, MOHSEN Aragon Ot I10 ESSENTIAL (PRIMARY) HYPERTENSION 07/04/2018 ALEXANDRA SCHAFER, MOHSEN Aragon Ot 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 07/04/2018 ALEXANDRA SCHAFER, MOHSEN Aragon Ot I48.0 PAROXYSMAL ATRIAL FIBRILLATION 07/04/2018 ALEXANDRA SCAHFER, MOHSEN Aragon Ot R07.89 OTHER CHEST PAIN 07/04/2018 Ot E78.5 HYPERLIPIDEMIA, UNSPECIFIED 07/04/2018 Ot I10 ESSENTIAL ( PRIMARY) HYPERTENSION 07/04/2018 Ot 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 07/04/2018 Ot R07.89 OTHER CHEST PAIN 07/04/2018 MARU TAVERAS Ot E78.2 MIXED HYPERLIPIDEMIA 07/04/2018 VIKTOR REBOLLEDO MARU Oscar Ot I10 ESSENTIAL (PRIMARY) HYPERTENSION 07/04/2018 VIKTOR REBOLLEDO MARU K Ot 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 07/04/2018 VIKTOR REBOLLEDO MARU K Ot R07.89 OTHER CHEST PAIN 08/03/2018 TONYA GLORIAP Ot M41.86 OTHER FORMS OF SCOLIOSIS, LUMBAR REGION 08/03/2018 TONYA GLORIAP Ot S32.010A WEDGE COMPRESSION FRACTURE OF FIRST LUMB 08/03/2018 TONYA GLORIAP Ot S32.030A WEDGE COMPRESSION FRACTURE OF THIRD LUMB 08/03/2018 TONYA GLORIAP Ot S32.040A WEDGE COMPRESSION FRACTURE OF FOURTH LUM 08/07/2018 TONYA GLORIAP Ot M41.86 OTHER FORMS OF SCOLIOSIS, LUMBAR REGION 08/07/2018 TONYA GLORIAP Ot S32.010A WEDGE COMPRESSION FRACTURE OF FIRST LUMB 08/07/2018 TONYA GLORIA ORDER CHECKER Ot S32.030A WEDGE COMPRESSION FRACTURE OF THIRD LUMB 08/07/2018 TONYA GLORIA ORDER CHECKER Ot S32.040A WEDGE COMPRESSION FRACTURE OF FOURTH LUM 08/12/2018 MOHSEN MORRIS MD Ot E78.5 HYPERLIPIDEMIA, UNSPECIFIED 08/12/2018 MOHSEN MORRIS MD Ot G47.33 OBSTRUCTIVE SLEEP APNEA (ADULT) (PEDIATR 08/12/2018 MOHSEN MORRIS MD Ot I08.1 RHEUMATIC DISORDERS OF BOTH MITRAL AND T 08/12/2018 MOHSEN MORRIS MD Ot I10 ESSENTIAL (PRIMARY) HYPERTENSION 08/12/2018 MOHSEN MORRIS MD Ot 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 08/12/2018 MOHSEN MORRIS MD Ot R07.89 OTHER CHEST PAIN 08/30/2018 MOHSEN MORRIS MD Ot E78.5 HYPERLIPIDEMIA, UNSPECIFIED 08/30/2018 MOHSEN MORRIS MD Ot G47.33 OBSTRUCTIVE SLEEP APNEA (ADULT) (PEDIATR 08/30/2018 MOHSEN MORRIS MD Ot I08.1 RHEUMATIC DISORDERS OF BOTH MITRAL AND T 08/30/2018 MOHSEN MORRIS MD Ot I10 ESSENTIAL (PRIMARY) HYPERTENSION 08/30/2018 MOHSEN MORRIS MD Ot 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 08/30/2018 MOHSEN MORRIS MD Ot R07.89 OTHER CHEST PAIN 08/31/2018 TONYA GLORIA ORDER CHECKER Ot M41.86 OTHER FORMS OF SCOLIOSIS, LUMBAR REGION 08/31/2018 TONYA GLORIA ORDER CHECKER Ot S32.010A WEDGE COMPRESSION FRACTURE OF FIRST LUMB 08/31/2018 TONYA GLORIA ORDER CHECKER Ot S32.030A WEDGE COMPRESSION FRACTURE OF THIRD LUMB 08/31/2018 TONYA GLORIA ORDER CHECKER Ot S32.040A WEDGE COMPRESSION FRACTURE OF FOURTH LUM 09/15/2018 MOHSEN MORRIS MD Ot I48.91 UNSPECIFIED ATRIAL FIBRILLATION 09/21/2018 MOHSEN MORRIS MD Ot I48.0 PAROXYSMAL ATRIAL FIBRILLATION 09/26/2018 MOHSEN MORRIS MD Ot I48.0 PAROXYSMAL ATRIAL FIBRILLATION 09/28/2018 MOHSEN MORRIS MD Ot I48.91 UNSPECIFIED ATRIAL FIBRILLATION Procedures Code Description Performed By Performed On [id number] QUAKER OF CARDIAC RHYTHM, SINGLE 11/10/2017 [id number] QUAKER OF CARDIAC RHYTHM, SINGLE 04/03/2018 Results Test Result Range Complete blood count [...] 107 mmol/L 98-107 Carbon dioxide 22 mmol/L 21-32 [...] 00:10 CALL POSITIVES (F1 HELP) CALLED TO [place] 08/26/17 0102 BY BSD NRG FLU RESULT POSITIVE FOR INFLUENZA B ANTIGEN, NEG FOR A ANTIGEN, BY IA NRG Bacterial blood culture - 08/26/17 00:10 Bacterial blood culture NG NRG Bacterial blood culture - 08/26/17 00:50 Bacterial blood culture NG NRG Complete urinalysis with reflex to culture - 08/26/17 03:10 Urine color determination YELLOW NRG Urine clarity determination CLEAR NRG Urine pH measurement by test strip 6.5 [...] i.cardiac measurement (mass/volume) < ng/ mL <0.30 Complete blood count (CBC) with automated white blood cell (WBC) differential - 10/27/17 15:00 Blood leukocytes automated count (number/volume) 5.9 10*3/uL 4.3-11.0 Blood erythrocytes automated count (number/volume) 4.41 10*6/uL 4.35-5.85 Venous blood hemoglobin measurement (mass/volume) 12.6 g/dL 11.5-16.0 Blood hematocrit (volume fraction) 39 % 35-52 Automated erythrocyte mean corpuscular volume 88 [foz_us] 80-99 Automated erythrocyte mean corpuscular hemoglobin (mass per erythrocyte) 29 pg 25-34 Automated erythrocyte mean corpuscular hemoglobin concentration measurement ( mass/volume) 33 g/dL 32-36 Automated erythrocyte distribution width ratio 14.5 % 10.0-14.5 Automated blood platelet count (count/volume) 230 10*3/uL 130-400 Automated blood platelet mean volume measurement 11.0 [foz_us] 7.4-10.4 Automated blood neutrophils/100 leukocytes 71 % 42-75 Automated blood lymphocytes/100 leukocytes 20 % 12-44 Blood monocytes/100 leukocytes 6 % 0-12 Automated blood eosinophils/100 leukocytes 2 % 0-10 Automated blood basophils/100 leukocytes 0 % 0-10 Blood neutrophils automated count (number/volume) 4.2 10*3 1.8-7.8 Blood lymphocytes automated count (number/volume) 1.2 10*3 1.0-4.0 Blood monocytes automated count (number/volume) 0.4 10*3 0.0-1.0 Automated eosinophil count 0.1 10*3/uL 0.0-0.3 Automated blood basophil count (count/volume) 0.0 10*3/uL 0.0-0.1 PT panel in platelet poor plasma by coagulation assay - 10/27/17 15:00 Prothrombin time (PT) in platelet poor plasma by coagulation assay 16.0 s 12.2-14.7 INR in platelet poor plasma or blood by coagulation assay 1.3 0.8-1.4 Activated partial thromboplastin time (aPTT) in platelet poor plasma bycoagulation assay - 10/27/17 15:00 Activated partial thromboplastin time (aPTT) in platelet poor plasma bycoagulation assay 30 s 24-35 Comprehensive metabolic panel - 10/27/17 15:00 Serum or plasma sodium measurement (moles/volume) 141 mmol/L 135-145 Serum or plasma potassium measurement (moles/volume) 3.8 mmol/L 3.6-5.0 Serum or plasma chloride measurement (moles/volume) 108 mmol/L 98-107 Carbon dioxide 27 mmol/L 21-32 Serum or plasma anion gap determination (moles/volume) 6 mmol/L 5-14 Serum or plasma urea nitrogen measurement (mass/volume) 14 mg/dL 7-18 Serum or plasma creatinine measurement (mass/volume) 0.96 mg/dL 0.60-1.30 Serum or plasma urea nitrogen/creatinine mass ratio 15 NRG Serum or plasma creatinine measurement with calculation of estimated glomerular filtration rate 57 NRG Serum or plasma glucose measurement (mass/volume) 127 mg/dL 70-105 Serum or plasma calcium measurement (mass/volume) 8.9 mg/dL 8.5-10.1 Serum or plasma total bilirubin measurement (mass/volume) 0.8 mg/dL 0.1-1.0 Serum or plasma alkaline phosphatase measurement (enzymatic activity/volume) 66 U/L 40-136 Serum or plasma aspartate aminotransferase measurement (enzymatic activity/ volume) 16 U/L 5-34 Serum or plasma alanine aminotransferase measurement (enzymatic activity/volume ) 13 U/L 0-55 Serum or plasma protein measurement (mass/volume) 6.5 g/dL 6.4-8.2 Serum or plasma albumin measurement (mass/volume) 3.9 g/dL 3.2-4.5 Magnesium - 10/27/17 15:00 Magnesium 1.7 mg/dL 1.8-2.4 Serum or plasma troponin i.cardiac measurement (mass/volume) - 10/27/17 15:00 Serum or plasma troponin i.cardiac measurement (mass/volume) < ng/ mL <0.30 Myoglobin, serum - 10/27/17 15:00 Myoglobin, serum 48.1 ng/mL 10.0-92.0 Automated blood complete blood count (hemogram) panel - 11/08/17 08:20 Blood leukocytes automated count (number/volume) 4.7 10*3/uL 4.3-11.0 Blood erythrocytes automated count (number/volume) 4.31 10*6/uL 4.35-5.85 Venous blood hemoglobin measurement (mass/volume) 12.0 g/dL 11.5-16.0 Blood hematocrit (volume fraction) 38 % 35-52 Automated erythrocyte mean corpuscular volume 89 [foz_us] 80-99 Automated erythrocyte mean corpuscular hemoglobin (mass per erythrocyte) 28 pg 25-34 Automated erythrocyte mean corpuscular hemoglobin concentration measurement ( mass/volume) 31 g/dL 32-36 Automated erythrocyte distribution width ratio 15.0 % 10.0-14.5 Automated blood platelet count (count/volume) 215 10*3/uL 130-400 Automated blood platelet mean volume measurement 11.0 [foz_us] 7.4-10.4 Comprehensive metabolic panel - 11/08/17 08:20 Serum or plasma sodium measurement (moles/volume) 140 mmol/L 135-145 Serum or plasma potassium measurement (moles/volume) 3.8 mmol/L 3.6-5.0 Serum or plasma chloride measurement (moles/volume) 108 mmol/L 98-107 Carbon dioxide 23 mmol/L 21-32 Serum or plasma anion gap determination (moles/volume) 9 mmol/L 5-14 Serum or plasma urea nitrogen measurement (mass/volume) 12 mg/dL 7-18 Serum or plasma creatinine measurement (mass/volume) 1.10 mg/dL 0.60-1.30 Serum or plasma urea nitrogen/creatinine mass ratio 11 NRG Serum or plasma creatinine measurement with calculation of estimated glomerular filtration rate 49 NRG Serum or plasma glucose measurement (mass/volume) 105 mg/dL 70-105 Serum or plasma calcium measurement (mass/volume) 8.8 mg/dL 8.5-10.1 Serum or plasma total bilirubin measurement (mass/volume) 0.4 mg/dL 0.1-1.0 Serum or plasma alkaline phosphatase measurement (enzymatic activity/volume) 68 U/L 40-136 Serum or plasma aspartate aminotransferase measurement (enzymatic activity/ volume) 17 U/L 5-34 Serum or plasma alanine aminotransferase measurement (enzymatic activity/volume ) 12 U/L 0-55 Serum or plasma protein measurement (mass/volume) 6.2 g/dL 6.4-8.2 Serum or plasma albumin measurement (mass/volume) 3.7 g/dL 3.2-4.5 Magnesium - 11/08/17 08:20 Magnesium 1.9 mg/dL 1.8-2.4 THYROID STIMULATING HORMONE - 11/08/17 08:20 THYROID STIMULATING HORMONE 2.53 u[iU]/mL 0.35-4.94 PT panel in platelet poor plasma by coagulation assay - 11/08/17 08:20 Prothrombin time (PT) in platelet poor plasma by coagulation assay 16.6 s 12.2-14.7 INR in platelet poor plasma or blood by coagulation assay 1.3 0.8-1.4 Activated partial thromboplastin time (aPTT) in platelet poor plasma bycoagulation assay - 11/08/17 08:20 Activated partial thromboplastin time (aPTT) in platelet poor plasma bycoagulation assay 30 s 24-35 Methicillin resistant Staphylococcus aureus (MRSA) screening culture - 06:57 Methicillin resistant Staphylococcus aureus (MRSA) screening culture NEG G Bacterial urine culture - 03/23/18 06:57 Bacterial urine culture SEE [facility] COLONY COUNT . [facility] Complete blood count (CBC) with automated white blood cell (WBC) differential - 04/01/18 21:55 Blood leukocytes automated count (number/volume) 6.5 10*3/uL 4.3-11.0 Blood erythrocytes automated count (number/volume) 4.67 10*6/uL 4.35-5.85 Venous blood hemoglobin measurement (mass/volume) 13.5 g/dL 11.5-16.0 Blood hematocrit (volume fraction) 41 % 35-52 Automated erythrocyte mean corpuscular volume 87 [foz_us] 80-99 Automated erythrocyte mean corpuscular hemoglobin (mass per erythrocyte) 29 pg 25-34 Automated erythrocyte mean corpuscular hemoglobin concentration measurement ( mass/volume) 33 g/dL 32-36 Automated erythrocyte distribution width ratio 14.9 % 10.0-14.5 Automated blood platelet count (count/volume) 248 10*3/uL 130-400 Automated blood platelet mean volume measurement 10.5 [foz_us] 7.4-10.4 Automated blood neutrophils/100 leukocytes 58 % 42-75 Automated blood lymphocytes/100 leukocytes 26 % 12-44 Blood monocytes/100 leukocytes 13 % 0-12 Automated blood eosinophils/100 leukocytes 2 % 0-10 Automated blood basophils/100 leukocytes 0 % 0-10 Blood neutrophils automated count (number/volume) 3.8 10*3 1.8-7.8 Blood lymphocytes automated count (number/volume) 1.7 10*3 1.0-4.0 Blood monocytes automated count (number/volume) 0.9 10*3 0.0-1.0 Automated eosinophil count 0.1 10*3/uL 0.0-0.3 Automated blood basophil count (count/volume) 0.0 10*3/uL 0.0-0.1 PT panel in platelet poor plasma by coagulation assay - 04/01/18 21:55 Prothrombin time (PT) in platelet poor plasma by coagulation assay 15.2 s 12.2-14.7 INR in platelet poor plasma or blood by coagulation assay 1.2 0.8-1.4 Activated partial thromboplastin time (aPTT) in platelet poor plasma bycoagulation assay - 04/01/18 21:55 Activated partial thromboplastin time (aPTT) in platelet poor plasma bycoagulation assay 28 s 24-35 Comprehensive metabolic panel - 04/01/18 21:55 Serum or plasma sodium measurement (moles/volume) 140 mmol/L 135-145 Serum or plasma potassium measurement (moles/volume) 3.3 mmol/L 3.6-5.0 Serum or plasma chloride measurement (moles/volume) 106 mmol/L 98-107 Carbon dioxide 21 mmol/L 21-32 Serum or plasma anion gap determination (moles/volume) 13 mmol/L 5-14 Serum or plasma urea nitrogen measurement (mass/volume) 10 mg/dL 7-18 Serum or plasma creatinine measurement (mass/volume) 0.96 mg/dL 0.60-1.30 Serum or plasma urea nitrogen/creatinine mass ratio 10 NRG Serum or plasma creatinine measurement with calculation of estimated glomerular filtration rate 57 NRG Serum or plasma glucose measurement (mass/volume) 106 mg/dL 70-105 Serum or plasma calcium measurement (mass/volume) 9.5 mg/dL 8.5-10.1 Serum or plasma total bilirubin measurement (mass/volume) 0.7 mg/dL 0.1-1.0 Serum or plasma alkaline phosphatase measurement (enzymatic activity/volume) 80 U/L 40-136 Serum or plasma aspartate aminotransferase measurement (enzymatic activity/ volume) 22 U/L 5-34 Serum or plasma alanine aminotransferase measurement (enzymatic activity/volume ) 17 U/L 0-55 Serum or plasma protein measurement (mass/volume) 6.7 g/dL 6.4-8.2 Serum or plasma albumin measurement (mass/volume) 3.9 g/dL 3.2-4.5 CALCIUM CORRECTED 9.6 mg/dL 8.5-10.1 Magnesium - 04/01/18 21:55 Magnesium 1.8 mg/dL 1.8-2.4 Fibrin D-dimer FEU measurement in platelet poor plasma (mass/volume) - 21:55 Fibrin D-dimer FEU measurement in platelet poor plasma (mass/volume) 0.29 ug/mL 0.00-0.49 Serum or plasma lithium measurement (moles/volume) - 04/01/18 21:55 BNP level 106.6 pg/mL <100.0 Serum or plasma troponin i.cardiac measurement (mass/volume) - 04/01/18 21:55 Serum or plasma troponin i.cardiac measurement (mass/volume) < ng/ mL <0.30 Myoglobin, serum - 04/01/18 21:55 Myoglobin, serum 79.0 ng/mL 10.0-92.0 Complete urinalysis with reflex to culture - 04/01/18 23:05 Urine color determination YELLOW NRG Urine clarity determination SLIGHTLY CLOUDY NRG Urine pH measurement by test strip 8 5-9 Specific gravity of urine by test strip 1.015 1.016- 1.022 Urine protein assay by test strip, semi-quantitative NEGATIVE NEGATIVE Urine glucose detection by automated test strip NEGATIVE NEGATIVE Erythrocytes detection in urine sediment by light microscopy NEGATIVE NEGATIVE Urine ketones detection by automated test strip 2+ NEGATIVE Urine nitrite detection by test strip NEGATIVE NEGATIVE Urine total bilirubin detection by test strip NEGATIVE NEGATIVE Urine urobilinogen measurement by automated test strip (mass/volume) NORMAL NORMAL Urine leukocyte esterase detection by dipstick 1+ NEGATIVE Automated urine sediment erythrocyte count by microscopy (number/high power field) NONE NRG Automated urine sediment leukocyte count by microscopy (number/high power field ) [HPF] NRG Bacteria detection in urine sediment by light microscopy FEW NRG Squamous epithelial cells detection in urine sediment by light microscopy 5-10 NRG Crystals detection in urine sediment by light microscopy NONE NRG Casts detection in urine sediment by light microscopy NONE NRG Mucus detection in urine sediment by light microscopy SMALL NRG Complete urinalysis with reflex to culture NO NRG Complete blood count (CBC) with automated white blood cell (WBC) differential - 04/02/18 03:06 Blood leukocytes automated count (number/volume) 6.9 10*3/uL 4.3-11.0 Blood erythrocytes automated count (number/volume) 4.06 10*6/uL 4.35-5.85 Venous blood hemoglobin measurement (mass/volume) 11.8 g/dL 11.5-16.0 Blood hematocrit (volume fraction) 36 % 35-52 Automated erythrocyte mean corpuscular volume 89 [foz_us] 80-99 Automated erythrocyte mean corpuscular hemoglobin (mass per erythrocyte) 29 pg 25-34 Automated erythrocyte mean corpuscular hemoglobin concentration measurement ( mass/volume) 33 g/dL 32-36 Automated erythrocyte distribution width ratio 14.9 % 10.0-14.5 Automated blood platelet count (count/volume) 217 10*3/uL 130-400 Automated blood platelet mean volume measurement 10.8 [foz_us] 7.4-10.4 Automated blood neutrophils/100 leukocytes 69 % 42-75 Automated blood lymphocytes/100 leukocytes 19 % 12-44 Blood monocytes/100 leukocytes 10 % 0-12 Automated blood eosinophils/100 leukocytes 2 % 0-10 Automated blood basophils/100 leukocytes 0 % 0-10 Blood neutrophils automated count (number/volume) 4.8 10*3 1.8-7.8 Blood lymphocytes automated count (number/volume) 1.3 10*3 1.0-4.0 Blood monocytes automated count (number/volume) 0.7 10*3 0.0-1.0 Automated eosinophil count 0.1 10*3/uL 0.0-0.3 Automated blood basophil count (count/volume) 0.0 10*3/uL 0.0-0.1 Comprehensive metabolic panel - 04/02/18 03:06 Serum or plasma sodium measurement (moles/volume) 141 mmol/L 135-145 Serum or plasma potassium measurement (moles/volume) 3.6 mmol/L 3.6-5.0 Serum or plasma chloride measurement (moles/volume) 109 mmol/L 98-107 Carbon dioxide 23 mmol/L 21-32 Serum or plasma anion gap determination (moles/volume) 9 mmol/L 5-14 Serum or plasma urea nitrogen measurement (mass/volume) 9 mg/dL 7-18 Serum or plasma creatinine measurement (mass/volume) 0.82 mg/dL 0.60-1.30 Serum or plasma urea nitrogen/creatinine mass ratio 11 NRG Serum or plasma creatinine measurement with calculation of estimated glomerular filtration rate > NRG Serum or plasma glucose measurement (mass/volume) 113 mg/dL 70-105 Serum or plasma calcium measurement (mass/volume) 8.6 mg/dL 8.5-10.1 Serum or plasma total bilirubin measurement (mass/volume) 0.4 mg/dL 0.1-1.0 Serum or plasma alkaline phosphatase measurement (enzymatic activity/volume) 68 U/L 40-136 Serum or plasma aspartate aminotransferase measurement (enzymatic activity/ volume) 22 U/L 5-34 Serum or plasma alanine aminotransferase measurement (enzymatic activity/volume ) 12 U/L 0-55 Serum or plasma protein measurement (mass/volume) 6.0 g/dL 6.4-8.2 Serum or plasma albumin measurement (mass/volume) 3.4 g/dL 3.2-4.5 CALCIUM CORRECTED 9.1 mg/dL 8.5-10.1 Lipid 1996 panel - 04/02/18 03:06 Serum or plasma triglyceride measurement (mass/volume) 102 mg/dL <150 Serum or plasma cholesterol measurement (mass/volume) 212 mg/dL < 200 Serum or plasma cholesterol in HDL measurement (mass/volume) 43 mg/ dL 40-60 Cholesterol in LDL [mass/volume] in serum or plasma by direct assay 152 mg/dL 1-129 Serum or plasma cholesterol in VLDL measurement (mass/volume) 20 mg/ dL 5-40 Automated blood complete blood count (hemogram) panel - 04/03/18 02:45 Blood leukocytes automated count (number/volume) 5.6 10*3/uL 4.3-11.0 Blood erythrocytes automated count (number/volume) 4.13 10*6/uL 4.35-5.85 Venous blood hemoglobin measurement (mass/volume) 11.9 g/dL 11.5-16.0 Blood hematocrit (volume fraction) 37 % 35-52 Automated erythrocyte mean corpuscular volume 90 [foz_us] 80-99 Automated erythrocyte mean corpuscular hemoglobin (mass per erythrocyte) 29 pg 25-34 Automated erythrocyte mean corpuscular hemoglobin concentration measurement ( mass/volume) 32 g/dL 32-36 Automated erythrocyte distribution width ratio 15.0 % 10.0-14.5 Automated blood platelet count (count/volume) 221 10*3/uL 130-400 Automated blood platelet mean volume measurement 10.7 [foz_us] 7.4-10.4 Comprehensive metabolic panel - 04/03/18 02:45 Serum or plasma sodium measurement (moles/volume) 141 mmol/L 135-145 Serum or plasma potassium measurement (moles/volume) 3.7 mmol/L 3.6-5.0 Serum or plasma chloride measurement (moles/volume) 110 mmol/L 98-107 Carbon dioxide 23 mmol/L 21-32 Serum or plasma anion gap determination (moles/volume) 8 mmol/L 5-14 Serum or plasma urea nitrogen measurement (mass/volume) 9 mg/dL 7-18 Serum or plasma creatinine measurement (mass/volume) 0.80 mg/dL 0.60-1.30 Serum or plasma urea nitrogen/creatinine mass ratio 11 NRG Serum or plasma creatinine measurement with calculation of estimated glomerular filtration rate > NRG Serum or plasma glucose measurement (mass/volume) 104 mg/dL 70-105 Serum or plasma calcium measurement (mass/volume) 8.4 mg/dL 8.5-10.1 Serum or plasma total bilirubin measurement (mass/volume) 0.4 mg/dL 0.1-1.0 Serum or plasma alkaline phosphatase measurement (enzymatic activity/volume) 61 U/L 40-136 Serum or plasma aspartate aminotransferase measurement (enzymatic activity/ volume) 16 U/L 5-34 Serum or plasma alanine aminotransferase measurement (enzymatic activity/volume ) 15 U/L 0-55 Serum or plasma protein measurement (mass/volume) 5.3 g/dL 6.4-8.2 Serum or plasma albumin measurement (mass/volume) 3.2 g/dL 3.2-4.5 CALCIUM CORRECTED 9.0 mg/dL 8.5-10.1 Encounters ACCT No. Visit Date/Time Discharge Status Pt. Type Provider Facility Loc./Unit Complaint [id number] 09/20/2018 11:46:00 09/20/2018 23:59:59 CLS Outpatient MOHSEN MORRIS MD Via [facility] ARTIAL FIB [id number] 09/12/2018 10:25:00 09/12/2018 23:59:59 CLS Outpatient MOHSEN MORRIS MD [facility] I48.0 [id number] 08/12/2018 09:30:00 08/12/2018 23:59:59 CLS Preadmit TONYA GLORIA [facility] RAD COMPRESSION FX L1 L3 L4, BACK PAIN [id number] 08/10/2018 12:38:00 08/10/2018 23:59:59 CLS Outpatient MOHSEN MORRIS MD [facility] CARD CAD,CHEST PAIN SYNDROME, HTN,HYPERLIPIDEMIA,MAGALY [id number] 08/01/2018 11:24:00 08/01/2018 23:59:59 CLS Outpatient TONYA GLORIA [facility] LOW BACK PAIN [id number] 04/25/2018 00:44:00 04/25/2018 23:59:59 CLS Preadmit MARU TAVERAS [facility] CARD ANTERIOR CHEST WALL PAIN,CAD,HTN [id number] 04/02/2018 10:53:00 04/03/2018 14:10:00 DIS Inpatient JAIR GONSALES DO [facility] ICU A-FIB,LABILE BLODD PRESSURE [id number] 03/14/2018 07:43:00 03/25/2018 00:01:00 DIS Outpatient MARU TAVERAS [facility] CARD ANTERIOR CHEST WALL PAIN,CAD,HTN [id number] 03/23/2018 06:32:00 03/23/2018 13:10:00 DIS Outpatient MOHSEN MORRIS MD [facility] CATH ABN STRESS,CAD,SOB,HTN [id number] 02/15/2018 10:44:00 02/15/2018 23:59:59 CLS Outpatient MARINA MARTINEZ MD [facility] SLEEP MAGALY [id number] 12/03/2017 21:02:00 12/04/2017 07:00:00 DIS Outpatient RAFFY CALLOWAY BAIT TIER Via [facility] SLEEP MAGALY G47.33 [id number] 11/08/2017 07:49:00 11/11/2017 08:55:00 DIS Inpatient MOHSEN MORRIS MD [facility] ICU AFIB [id number] 10/27/2017 14:49:00 10/27/2017 17:19:00 DIS Emergency PREMA MALIK MD [facility] ER SOB [id number] 09/01/2017 13:29:00 09/01/2017 23:59:59 CLS Outpatient MOHSEN MORRIS MD [facility] RAD I48.0 ATRIAL FIBRILLATION [id number] 08/25/2017 22:21:00 08/26/2017 04:31:00 DIS Emergency ROSIE KIRKPATRICK DO [facility] ER SOA,IRREG HEART RATE [id number] 04/28/2017 07:11:00 04/28/2017 11:30:00 DIS Outpatient MOHSEN MORRIS MD Via [facility] AFIB, HTN, [id number] 04/20/2017 14:04:00 04/20/2017 15:51:00 DIS Emergency SHEILA NARAYANAN APRN [facility] ER A-FIB/SOB [id number] 03/10/2017 07:06:00 03/10/2017 11:20:00 DIS Outpatient MOHSEN MORRIS MD Via [facility] AFIB,DYSPNEA,CAD,HTN [id number] 02/10/2017 12:31:00 02/10/2017 23:59:59 CLS Outpatient MARU TAVERAS [facility] LAB I25.10 I10 E78.2 [id number] 02/08/2017 09:04:00 02/08/2017 23:59:59 CLS Outpatient MARU TAVERAS [facility] CARD CAD I25.10 [id number] 02/02/2017 10:53:00 02/02/2017 23:59:59 CLS Outpatient STEFFI SCHAFER, BIBIANA Roach [facility] CARD IRREGULAR RHYTHM, FATIGUE [id number] 09/28/2016 10:09:00 09/28/2016 23:59:59 CLS Outpatient MARU TAVERAS [facility] CAD,HTN,HLP, MAGALY [id number] 09/07/2016 13:46:00 09/07/2016 23:59:59 CLS Outpatient AGUSTIN HOWELL APRN [facility] RAD POPLITEAL PAIN,CALF PAIN,KNEE PAIN [id number] 08/25/2016 11:46:00 08/26/2016 11:30:00 DIS Outpatient MOHSEN MORRIS MD [facility] CATH CHEST PAIN [id number] 08/01/2016 11:52:00 08/01/2016 14:24:00 DIS Emergency DEMETRIS SCHAFER, RICK Alaniz Via [facility] ER CP/SOA [id number] 02/24/2016 07:38:00 02/24/2016 23:59:59 CLS Outpatient MARU TAVERAS Via [facility] CARD ANEURYSM OF AA,CAD,CHEST PAIN,HTN [id number] 02/07/2016 11:35:00 02/07/2016 23:59:59 CLS Outpatient MARU TAVERAS Via [facility] CARD ANEURYSM OF AA CAD,CHEST PAIN,HTN [id number] 02/04/2016 08:28:00 02/04/2016 23:59:59 CLS Outpatient MARU TAVERAS [facility] RAD ANEURYSM OF AA, CAD, CHEST PAIN, HTN [id number] 10/13/2015 13:57:00 10/13/2015 15:56:00 DIS Emergency SHEILA NARAYANAN APRN [facility] ER BOTH LEGS AND FEET SWELLING/SOB [id number] 01/24/2015 09:26:00 01/24/2015 23:59:59 CLS Outpatient MOHSEN MORRIS MD [facility] RAD CAD,DYSPNEA,HTN,HLP [id number] 11/01/2014 09:51:00 11/01/2014 23:59:59 CLS Outpatient EDD VALLE MD [facility] COMPRESSION FRACTURE [id number] 10/16/2014 14:29:00 10/16/2014 23:59:59 CLS Outpatient PAMELA JOSHI MD [facility] RAD LUMBAGO [id number] 12/11/2013 07:28:00 12/11/2013 23:59:59 CLS Outpatient MARU TAVERAS [facility] CARD CAD,HTN,HLP [id number] 10/19/2013 08:29:00 10/19/2013 23:59:59 CLS Outpatient EDD VALLE MD [facility] RAD F/U AAA [id number] 10/10/2013 19:47:00 10/11/2013 06:45:00 DIS Outpatient EDD VALLE MD [facility] SLEEP ISCHEMIC HEART DISEASE,HTN [id number] 09/27/2013 11:56:00 09/27/2013 23:59:59 CLS Outpatient EDD VALLE MD [facility] RT SOB [id number] 09/18/2013 09:59:00 09/18/2013 23:59:59 CLS Outpatient EDD VALLE MD [facility] RAD SOB [id number] 04/06/2013 06:44:00 04/06/2013 08:10:00 DIS Emergency TARIQ SCHAFER, JOSE D [facility] ER GENERAL PAIN [id number] 04/02/2013 09:07:00 04/02/2013 11:10:00 DIS Emergency AKILA SCHAFER, BISI R [facility] ER LOWER BACK PAIN R LEG PAIN [id number] 03/10/2013 09:44:00 03/10/2013 23:59:59 CLS Outpatient EDD VALLE MD [facility] SCREENING [id number] 12/06/2012 08:37:00 12/27/2012 09:39:00 DIS Outpatient EDD VALLE MD [facility] REHAB BACK PAIN [id number] 03/14/2018 07:46:00 Document Registration [id number] 10/11/2014 07:57:00 Document Registration [id number] 10/08/2014 15:44:00 Document Registration [id number] 09/07/2012 07:43:00 Document Registration [id number] 08/31/2012 11:34:00 Document Registration [id number] 07/22/2012 09:57:00 Document Registration [id number] 07/20/2012 12:14:00 Document Registration [id number] 06/08/2012 10:26:00 Document Registration [id number] 04/08/2012 08:18:00 Document Registration [id number] 03/23/2012 08:00:00 Document Registration [id number] 01/13/2012 10:47:00 Document Registration [id number] 12/13/2011 06:12:00 Document Registration [id number] 12/09/2011 16:25:00 Document Registration [id number] 10/20/2011 08:25:00 Document Registration [id number] 07/29/2011 09:58:00 Document Registration [id number] 07/27/2011 09:14:00 Document Registration [id number] 06/24/2011 07:06:00 Document Registration [id number] 06/09/2011 10:50:00 Document Registration [id number] 02/03/2017 10:27:23 02/03/2017 23:59:59 CLS Outpatient [id number] 08/03/2018 00:00:00 08/03/2018 23:59:00 DIS Outpatient BIBIANA KAPADIA
[2018-10-11 11:06] LABS: BAND NEUTROPHILS 5 %; BASOPHILS % (MANUAL) 0 %; EOSINOPHILS % (MANUAL) 4 %; LYMPHOCYTES % (MANUAL) 5 %; MONOCYTES % (MANUAL) 6 %; NEUTROPHILS % (MANUAL) 80 %
--- NOTE | 2018-10-11 11:06 | Diagnostic Imaging Report ---
INDICATION: Chest pain. Comparison is made with prior examination from 04/01/18. FINDINGS: There is cardiomegaly. There is bibasilar atelectasis and/or pneumonitis. There is no pleural effusion or pneumothorax. The mediastinum is unremarkable. There has been a previous median sternotomy and coronary artery bypass graft. IMPRESSION: Bibasilar atelectasis and/or pneumonitis. Dictated by: Dictated on workstation # [id number]
[2018-10-11 11:07] LABS: ANISOCYTOSIS SLIGHT; ELLIPT/OVALOCYTES SLIGHT; POIKILOCYTOSIS SLIGHT
[2018-10-11 11:10] VITALS: BP 146/65
--- NOTE | 2018-10-11 11:14 | NUR ---
TO ROOM NO CHANGE FROM ADMIT REMAINS PAIN FREE.
--- NOTE | 2018-10-11 11:43 | NUR ---
2ND TROPONIN DRAWN
--- NOTE | 2018-10-11 12:38 | NUR ---
2ND EKG DONE.
[2018-10-11 12:45] VITALS: BP 123/63
== END 2018-10-11 12:45 | disposition home or self-care (01) ==
LOC: EDUNIT# 09:37 → ER 09:39
DX: R07.9 Chest pain, unspecified (principal); G47.30 Sleep apnea, unspecified; J44.9 Chronic obstructive pulmonary disease, unspecified; I48.91 Unspecified atrial fibrillation; I25.10 Atherosclerotic heart disease of native coronary artery without angina pectoris; E78.00 Pure hypercholesterolemia, unspecified; I10 Essential (primary) hypertension; K21.9 Gastro-esophageal reflux disease without esophagitis; K58.9 Irritable bowel syndrome, unspecified; F41.9 Anxiety disorder, unspecified; F32.9 Major depressive disorder, single episode, unspecified; Z82.49 Family history of ischemic heart disease and other diseases of the circulatory system; Z87.19 Personal history of other diseases of the digestive system; Z91.041 Radiographic dye allergy status; Z88.0 Allergy status to penicillin; Z79.01 Long term (current) use of anticoagulants; Z87.891 Personal history of nicotine dependence; Z98.890 Other specified postprocedural states; Z95.1 Presence of aortocoronary bypass graft
CPT/HCPCS: 36415; 71045; 80053; 83735; 83874; 84484; 85007; 85027; 85610; 85730; 93005; 93041

== ENCOUNTER → 2018-10-25 | Outpatient (CLI) | payer MEDICARE, OTHER ==
[2018-10-25 11:04] LABS: BASOPHILS % (AUTO) 0 % (0-10); EOSINOPHILS # (AUTO) 0.1 10^3/uL (0.0-0.3); EOSINOPHILS % (AUTO) 1 % (0-10); HEMATOCRIT 39 % (35-52); HEMOGLOBIN 12.2 G/DL (11.5-16.0); LYMPHOCYTES # (AUTO) 0.9 X 10^3 (1.0-4.0); LYMPHOCYTES % (AUTO) 19 % (12-44); MEAN CORPUSCULAR HEMOGLOBIN 26 PG (25-34); MEAN CORPUSCULAR HGB CONC 31 G/DL (32-36); MEAN CORPUSCULAR VOLUME 83 FL (80-99); MEAN PLATELET VOLUME 9.8 FL (7.4-10.4); MONOCYTES # (AUTO) 0.3 X 10^3 (0.0-1.0); MONOCYTES % (AUTO) 6 % (0-12); NEUTROPHILS # (AUTO) 3.4 X 10^3 (1.8-7.8); NEUTROPHILS % (AUTO) 73 % (42-75); PLATELET COUNT 268 10^3/uL (130-400); RED CELL DISTRIBUTION WIDTH 16.9 % (10.0-14.5); WHITE BLOOD COUNT 4.6 10^3/uL (4.3-11.0)
[2018-10-25 11:49] LABS: ALANINE AMINOTRANSFERASE 20 U/L (0-55); ALBUMIN 3.9 GM/DL (3.2-4.5); ALKALINE PHOSPHATASE 64 U/L (40-136); BILIRUBIN,TOTAL 0.5 MG/DL (0.1-1.0); BUN/CREATININE RATIO 13; CALCIUM 9.3 MG/DL (8.5-10.1); CARBON DIOXIDE 23 MMOL/L (21-32); CHLORIDE 105 MMOL/L (98-107); CREATINE KINASE 100 U/L (29-168); GFR ESTIMATED 54; GLUCOSE 104 MG/DL (70-105); POTASSIUM 4.2 MMOL/L (3.6-5.0); SODIUM 140 MMOL/L (135-145); TOTAL PROTEIN 6.9 GM/DL (6.4-8.2)
== END ==
LOC: CARD 10:45
PROVIDERS: ATTEND Nurse Practitioner Family
DX: R07.9 Chest pain, unspecified (principal)
CPT/HCPCS: 36415; 80053; 82550; 84484; 85025; 93005

== ENCOUNTER 2019-01-12 10:27 | Outpatient (RCR) | payer MEDICARE, OTHER ==
[~2019-01-12 10:27] MED LIST changes: +OMEP20CA13 PO
[2019-01-12 10:53] LABS: INR 2.3 (0.8-1.4); PROTHROMBIN TIME PATIENT 26.7 SEC (12.2-14.7)
[2019-02-19] MEDS ORDERED: CIPR500T4 PO (13:52)
== END 2019-04-12 | disposition home or self-care (01) ==
LOC: LAB 10:27
PROVIDERS: ATTEND Internal Medicine Cardiovascular Disease
DX: I48.0 Paroxysmal atrial fibrillation (principal)
CPT/HCPCS: 36415; 85610

== ENCOUNTER → 2019-01-12 | Outpatient (CLI) | payer MEDICARE, OTHER ==
[~2019-01-12] MED LIST changes: -EZET10TA27 PO; +EZET10TA49 PO; -SOTA80TA PO; +STL80T PO; -TRAZ-189 PO; +TRAZ-222 PO
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
== END ==
LOC: RAD 10:23
PROVIDERS: ATTEND Nurse Practitioner Family
DX: M47.816 Spondylosis without myelopathy or radiculopathy, lumbar region (principal); M85.88 Other specified disorders of bone density and structure, other site; I71.4 Abdominal aortic aneurysm, without rupture; Z87.81 Personal history of (healed) traumatic fracture
CPT/HCPCS: 72100

== ENCOUNTER → 2019-01-17 | Outpatient (CLI) | payer MEDICARE, OTHER ==
[~2019-01-17] MED LIST changes: -OMEP20CA13 PO
--- NOTE | 2019-01-17 14:36 | Diagnostic Imaging Report ---
Indication: Shortness of breath, hyperlipidemia PA and lateral chest There are postop changes from CABG surgery. Heart size and pulmonary vascularity are normal. Lungs are clear. There are no effusions or pneumothoraces. Impression: No acute abnormalities in the chest. Dictated by: Dictated on workstation # [id number]
== END ==
LOC: RAD 12:16
PROVIDERS: ATTEND Internal Medicine Cardiovascular Disease
DX: I25.10 Atherosclerotic heart disease of native coronary artery without angina pectoris (principal); I10 Essential (primary) hypertension; E78.2 Mixed hyperlipidemia; Z95.1 Presence of aortocoronary bypass graft
CPT/HCPCS: 71046

== ENCOUNTER → 2019-01-25 | Outpatient (CLI) | payer MEDICARE, OTHER ==
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
== END ==
LOC: RAD 07:34
PROVIDERS: ATTEND Nurse Practitioner Family
DX: M47.816 Spondylosis without myelopathy or radiculopathy, lumbar region (principal); M51.36 Other intervertebral disc degeneration, lumbar region; Z87.81 Personal history of (healed) traumatic fracture
CPT/HCPCS: 72148

== ENCOUNTER 2019-02-19 11:50 | Emergency (ER) | payer MEDICARE, OTHER ==
[~2019-02-19] VITALS: Ht 167.6 cm; Wt 115.2 kg
[2019-02-19] MEDS ORDERED: FUROSEMIDE 40 MG/4 ML INJ (LASIX) IVP ONE (12:15)
--- NOTE | 2019-02-19 12:19 | ED General ---
General Chief Complaint: Lower Extremity Stated Complaint: SWELLING IN BOTH LEGS History of Present Illness Date Seen by Provider: Feb 19, 2019 Time Seen by Provider: 12:00 Initial Comments 73 year old female with chronic pedal edema (on Lasix 20 mg daily and K+), CHF, A-Fib (on Coumadin 4 mg daily), and chronic UTIs. She denies SOA, Dyspnea, chest pain or fevers. She states the swelling is not worse, just not getting better. She has ordered support hose, but they are not her yet. She is seeing Dr. Gonzales for her UTI symptoms. Timing/Duration: 4-5 Days Severity: Mild Associated Systoms: No Chest Pain, No Cough, No Diaphoresis, No Fever/Chills, No Headaches, No Loss of Appetite; Malaise; No Nausea/Vomiting, No Rash, No Seizure; Shortness of Air (baseline, not worse than normal); No Syncope; Weakness (generalized, but not worse than baseline) Allergies and Home Medications Allergies Coded Allergies: Iodinated Contrast- Oral and IV Dye (Unverified Allergy, Mild, NAUSEA, 04/24/07) Pt states it's the IV dye used in heart tests not CT scans penicillin G (Verified Allergy, Mild, RASH, 03/23/18) RASH Home Medications Acetaminophen with Codeine 1 Each Tablet, 1 TAB PO Q6H PRN for PAIN-MODERATE, (Reported) Amiodarone HCl 200 Mg Tablet, 200 MG PO BID 2 pills BID for 7 days then 1 pill BID Prescribed by: JAIR GONSALES on 04/03/18 1144 Apixaban 5 Mg Tablet, 5 MG PO BID, (Reported) Atorvastatin Calcium 80 Mg Tablet, 40 MG PO DAILY, (Reported) TAKES 1/2 (80MG) TABLET Cholecalciferol (Vitamin D3) 2,000 Unit Tablet, 2,000 UNIT PO DAILY, (Reported) Ciprofloxacin HCl 500 Mg Tablet, 500 MG PO BID Prescribed by: MALIKA HARRIS on 02/19/19 1352 Ezetimibe 10 Mg Tablet, 10 MG PO DAILY, (Reported) Furosemide 20 Mg Tablet, 20 MG PO DAILY, (Reported) Hydrochlorothiazide 25 Mg Tablet, 25 MG PO DAILY, (Reported) Omeprazole 20 Mg Capsule.dr, 20 MG PO DAILY, (Reported) Paroxetine HCl 20 Mg Tablet, 20 MG PO HS, (Reported) Potassium Chloride 10 Meq Tab.er.prt, 10 MEQ PO DAILY, (Reported) Terazosin HCl 5 Mg Capsule, 5 MG PO DAILY, (Reported) Trazodone HCl 50 Mg Tablet, 50 MG PO DAILY, (Reported) Zolpidem Tartrate 10 Mg Tablet, 10 MG PO HS, (Reported) Patient Home Medication List Home Medication List Reviewed: Yes Review of Systems Review of Systems Constitutional: no symptoms reported, see HPI Respiratory: no symptoms reported, see HPI; No cough, No dyspnea on exertion, No hemoptysis, No phlegm, No short of breath Cardiovascular: see HPI, edema Skin: no symptoms reported, see HPI All Other Systems Reviewed Negative Unless Noted: Yes Past Rdrwatp-Jrursa-Nbbchp Hx Past Med/Social Hx: Reviewed Nursing Past Med/Soc Hx Patient Social History Alcohol Use: Denies Use Recreational Drug Use: No Smoking Status: Former Smoker Type Used: Cigarettes Former Smoker, Quit: Mar 23, 1991 2nd Hand Smoke Exposure: No Recent Foreign Travel: No Contact w/Someone Who Travel: No Recent Hopitalizations: No Immunizations Up To Date Tetanus Booster (TDap): Unknown Date of Pneumonia Vaccine: Mar 23, 2017 Date of Influenza Vaccine: May 26, 2016 Seasonal Allergies Seasonal Allergies: No Past Medical History Surgeries: Yes (HERNIA REPAIR; EGD; VIANCA/CARDIOVERSION) Bladder Surgery, CABG, Eye Surgery, Gallbladder, Orthopedic Respiratory: Yes (sleep apnea no cpap) Sleep Apnea, COPD Currently Using CPAP: No Currently Using BIPAP: No Cardiac: Yes (VIANCA/CARDIOVERSION 04/2017 MOST RECENTLY) Atrial Fibrillation, Coronary Artery Disease, High Cholesterol, Hypertension Neurological: No Reproductive Disorders: No Female Reproductive Disorders: Denies Sexually Transmitted Disease: No HIV/AIDS: No Genitourinary: Yes (bladder sling ) Gastrointestinal: Yes Abdominal Hernia, Gastroesophageal Reflux, Hiatal Hernia, Irritable Bowel Musculoskeletal: Yes (hx fx left wrist, lower back disc ) Degenerate Disk Disease, Arthritis, Chronic Back Pain Endocrine: No HEENT: Yes (bilateral cataracts removed) Cataract Loss of Vision: Denies Hearing Impairment: Hard of Hearing Cancer: No Psychosocial: Yes Anxiety, Depression Integumentary: Yes (chronic abd folds/under breast rash ) Blood Disorders: No Adverse Reaction/Blood Tranf: No Family Medical History Arthritis Cardiovascular disease 19 FATHER 19 MOTHER G8 BROTHER FH: MT (myocardial infarction) 19 FATHER ( at 67 from [place]) 19 MOTHER ( at 39 from MT) Hypertension CAD Over 55 Years Old Physical Exam Vital Signs Vital Signs - First Documented 02/19/19 12:00 Temp 99.2 Pulse 83 Resp 16 B/P (MAP) 113/56 (75) Pulse Ox 94 O2 Delivery Room Air Capillary Refill : Height, Weight, BMI Height: 5'7.00" Weight: 263lbs. 0.0oz. 119.998747lq; 41.2 BMI Method:Estimated General Appearance: No Apparent Distress, WD/WN Eyes: Bilateral Eye Normal Inspection, Bilateral Eye PERRL, Bilateral Eye EOMI HEENT: PERRL/EOMI, TMs Normal, Normal ENT Inspection, Pharynx Normal Neck: Full Range of Motion, Normal Inspection, Non Tender, Supple Respiratory: Lungs Clear, Normal Breath Sounds, No Respiratory Distress Cardiovascular: Regular Rate, Rhythm; No No Edema, No No JVD; No Murmur, Normal Peripheral Pulses (Pedal pulses symmetric: Dorsalis pedis 2+ and Post Tibialis 1+) Gastrointestinal: Normal Bowel Sounds, No Pulsatile Mass, Non Tender, Soft, Distended Extremity: Normal Capillary Refill, Normal Inspection, Normal Range of Motion, Calf Tenderness (No increased calf pain with Marleny's), Pedal Edema (2+) Neurologic/Psychiatric: Alert, Oriented x3, No Motor/Sensory Deficits, Normal Mood/Affect, Other (Ecchymosis noted to 2nd toe on left foot. patient cheo pain or injury. Non-tender to Palpation. ) Skin: Normal Color, Warm/Dry Progress/Results/Core Measures Suspected Sepsis SIRS Temperature: Pulse: Respiratory Rate: Laboratory Tests 02/19/19 12:10: White Blood Count 3.4L Blood Pressure / Mean: Laboratory Tests 02/19/19 12:10: Creatinine 1.09, INR Comment 3.7H, Platelet Count 227, Total Bilirubin 0.7 Results/Orders Lab Results Laboratory Tests Test 02/19/19 12:10 02/19/19 13:24 Range/Units White Blood Count 3.4 L 4.3-11.0 10^3/uL Red Blood Count 4.21 L 4.35-5.85 10^6/uL Hemoglobin 11.3 L 11.5-16.0 G/DL Hematocrit 36 35-52 % Mean Corpuscular Volume 86 80-99 FL Mean Corpuscular Hemoglobin 27 25-34 PG Mean Corpuscular Hemoglobin Concent 31 L 32-36 G/DL Red Cell Distribution Width 17.8 H 10.0-14.5 % Platelet Count 227 130-400 10^3/uL Mean Platelet Volume 10.7 H 7.4-10.4 FL Neutrophils (%) (Auto) 57 42-75 % Lymphocytes (%) (Auto) 28 12-44 % Monocytes (%) (Auto) 11 0-12 % Eosinophils (%) (Auto) 4 0-10 % Basophils (%) (Auto) 1 0-10 % Neutrophils # (Auto) 2.0 1.8-7.8 X 10^3 Lymphocytes # (Auto) 0.9 L 1.0-4.0 X 10^3 Monocytes # (Auto) 0.4 0.0-1.0 X 10^3 Eosinophils # (Auto) 0.1 0.0-0.3 10^3/uL Basophils # (Auto) 0.0 0.0-0.1 10^3/uL Prothrombin Time 38.1 H 12.2-14.7 SEC INR Comment 3.7 H 0.8-1.4 Activated Partial Thromboplast Time 48 H 24-35 SEC D-Dimer < 0.27 0.00-0.49 UG/ML Sodium Level 141 135-145 MMOL/L Potassium Level 4.1 3.6-5.0 MMOL/L Chloride Level 105 98-107 MMOL/L Carbon Dioxide Level 23 21-32 MMOL/L Anion Gap 13 5-14 MMOL/L Blood Urea Nitrogen 9 7-18 MG/DL Creatinine 1.09 0.60-1.30 MG/DL Estimat Glomerular Filtration Rate 49 BUN/Creatinine Ratio 8 Glucose Level 93 70-105 MG/DL Calcium Level 8.9 8.5-10.1 MG/DL Corrected Calcium 9.1 8.5-10.1 MG/DL Total Bilirubin 0.7 0.1-1.0 MG/DL Aspartate Amino Transf (AST/SGOT) 39 H 5-34 U/L Alanine Aminotransferase (ALT/SGPT) 33 0-55 U/L Alkaline Phosphatase 66 40-136 U/L Troponin I < 0.028 <0.028 NG/ML B-Type Natriuretic Peptide 187.0 H <100.0 PG/ML Total Protein 6.4 6.4-8.2 GM/DL Albumin 3.7 3.2-4.5 GM/DL Urine Color YELLOW Urine Clarity CLEAR Urine pH 6 5-9 Urine Specific [place] 1.010 L 1.016-1.022 Urine Protein NEGATIVE NEGATIVE Urine Glucose (UA) NEGATIVE NEGATIVE Urine Ketones NEGATIVE NEGATIVE Urine Nitrite POSITIVE H NEGATIVE Urine Bilirubin NEGATIVE NEGATIVE Urine Urobilinogen NORMAL NORMAL MG/DL Urine Leukocyte Esterase 1+ H NEGATIVE Urine RBC (Auto) NEGATIVE NEGATIVE Urine RBC NONE /HPF Urine WBC 2-5 /HPF Urine Squamous Epithelial Cells 5-10 /HPF Urine Crystals NONE /LPF Urine Bacteria TRACE /HPF Urine Casts NONE /LPF Urine Mucus NEGATIVE /LPF Urine Culture Indicated YES My Orders Orders - MALIKA HARRIS BNP (02/19/19 12:11) Cbc With Automated Diff (02/19/19 12:11) Comprehensive Metabolic Panel (02/19/19 12:11) Protime With Inr (02/19/19 12:11) Partial Thromboplastin Time (02/19/19 12:11) Ua Culture If Indicated (02/19/19 12:11) Troponin I (02/19/19 12:11) Chest Pa/Lat (2 View) (02/19/19 12:11) Furosemide Injection (Lasix Injection) (02/19/19 12:15) Fibrin Degradation Products (02/19/19 12:30) Urine Culture (02/19/19 13:24) Medications Given in ED Current Medications Medications Dose Ordered Sig/Dominique Route Start Time Stop Time Status Last Admin Dose Admin Furosemide 10 mg ONCE ONCE IVP 02/19/19 12:15 02/19/19 12:16 DC 02/19/19 12:31 10 MG Vital Signs/I&O 02/19/19 02/19/19 12:00 13:59 Temp 99.2 Pulse 83 65 Resp 16 17 B/P (MAP) 113/56 (75) 123/60 (81) Pulse Ox 94 99 O2 Delivery Room Air Room Air Capillary Refill : Progress Note : Time: 12:00 Progress Note Patient seen and evaluated. Will obtain labs, Chest x-ray, and US bilat lower ext. 1215 Ultrasound not available, discussed with patient. Since she is on Coumadin, the chances of her having a DVT are slim and her calf pain seems to be from the swelling, with good cap refill and neg d-dimer. She can see her PCP tomorrow for an outpatient US, if symptoms worsen. She has very trace erythema to bilat LE, no warmth to indicate cellulitis. 1245 UA obtained. Awaiting results. 1340 Discharge instructions reviewed, return precautions and all questions answered. Diagnostic Imaging Diagonstic Imaging: Xray Plain Films/CT/US/NM/MRI: chest Comments NAME: ANNETTE BRASHER [facility] REC#: [id number] PT STATUS: REG ER : 1945 PHYSICIAN: MALIKA HARRIS ADMIT DATE: 02/19/19/ER Draft Date of Exam:02/19/19 CHEST PA/LAT (2 VIEW) EXAM: CHEST PA/LAT (2 VIEW) INDICATION: Leg swelling. Weakness. Cough. COMPARISON: Chest radiograph 01/17/2019. FINDINGS: Sternotomy with mediastinal markers. Calcified aorta. Normal heart size and pulmonary vascularity. Mild atelectasis or infiltrate in the right lung base. Tiny right pleural effusion versus thickening. Linear atelectasis or scarring in the left lung base. IMPRESSION: 1. Stable atelectasis or infiltrate right lung base and tiny right pleural effusion or thickening. 2. Linear atelectasis or scarring in the left lung base Dictated on workstation # [id number] Dict: 02/19/19 1228 Trans: 02/19/19 1230 CVB [id number] Interpreted by: KATHARINA HAYES MD Electronically signed by: Reviewed: Reviewed by Me Departure Impression Primary Impression: Pedal edema Additional Impression: UTI (urinary tract infection) Qualified Codes: N30.00 - Acute cystitis without hematuria Disposition: HOME, SELF-CARE Condition: Stable Departure-Patient Inst. Decision time for Depature: 13:40 Referrals: BIBIANA KAPADIA MD (PCP/Family) Primary Care Physician Patient Instructions: Dependent Edema (DC), Urinary Tract Infection, Adult (DC) Add. Discharge Instructions: Continue to elevate both feet, higher than heart. Move ankles and toes every 20 min, while awake. Increase water intake and empty bladder every 2 hours, while awake. When you obtain your support hose, wear them at all times Increase your Lasix, take 2 pills daily for the next 3-4 days. Increase Potassium rich foods (bananas) and continue to take your Potassium. Follow up with Alis Muhammad APRN in 2-3 days if symptoms are not improving or worsen. You may take Tylenol 650 mg alternating with Ibuprofen 600 mg every 4 hours for pain or fever. Return to emergency dept for difficulty breaking, chest pain, fever greater than 101* not relieved by tylenol or ibuprofen, or new problems. All discharge instructions reviewed with patient and/or family. Voiced understanding. Scripts Ciprofloxacin HCl (Ciprofloxacin HCl) 500 Mg Tablet 500 MG PO BID, #6 TAB 0 Refills Prov: MALIKA HARRIS 02/19/19 Copy Copies To 1: BIBIANA KAPADIA MD, AMY ARNP Feb 19, 2019 12:19
[2019-02-19 12:20] LABS: BASOPHILS % (AUTO) 1 % (0-10); EOSINOPHILS # (AUTO) 0.1 10^3/uL (0.0-0.3); EOSINOPHILS % (AUTO) 4 % (0-10); HEMATOCRIT 36 % (35-52); HEMOGLOBIN 11.3 G/DL (11.5-16.0); LYMPHOCYTES # (AUTO) 0.9 X 10^3 (1.0-4.0); LYMPHOCYTES % (AUTO) 28 % (12-44); MEAN CORPUSCULAR HEMOGLOBIN 27 PG (25-34); MEAN CORPUSCULAR HGB CONC 31 G/DL (32-36); MEAN CORPUSCULAR VOLUME 86 FL (80-99); MEAN PLATELET VOLUME 10.7 FL (7.4-10.4); MONOCYTES # (AUTO) 0.4 X 10^3 (0.0-1.0); MONOCYTES % (AUTO) 11 % (0-12); NEUTROPHILS % (AUTO) 57 % (42-75); PLATELET COUNT 227 10^3/uL (130-400); RED CELL DISTRIBUTION WIDTH 17.8 % (10.0-14.5); WHITE BLOOD COUNT 3.4 10^3/uL (4.3-11.0)
[2019-02-19 12:30] LABS: INR 3.7 (0.8-1.4); PROTHROMBIN TIME PATIENT 38.1 SEC (12.2-14.7)
--- NOTE | 2019-02-19 12:30 | Diagnostic Imaging Report ---
EXAM: CHEST PA/LAT (2 VIEW) INDICATION: Leg swelling. Weakness. Cough. COMPARISON: Chest radiograph 01/17/2019. FINDINGS: Sternotomy with mediastinal markers. Calcified aorta. Normal heart size and pulmonary vascularity. Mild atelectasis or infiltrate in the right lung base. Tiny right pleural effusion versus thickening. Linear atelectasis or scarring in the left lung base. IMPRESSION: 1. Stable atelectasis or infiltrate right lung base and tiny right pleural effusion or thickening. 2. Linear atelectasis or scarring in the left lung base Dictated by: Dictated on workstation # [id number]
[2019-02-19 12:37] LABS: ALANINE AMINOTRANSFERASE 33 U/L (0-55); ALBUMIN 3.7 GM/DL (3.2-4.5); ALKALINE PHOSPHATASE 66 U/L (40-136); BILIRUBIN,TOTAL 0.7 MG/DL (0.1-1.0); BUN/CREATININE RATIO 8; CALCIUM 8.9 MG/DL (8.5-10.1); CARBON DIOXIDE 23 MMOL/L (21-32); CHLORIDE 105 MMOL/L (98-107); CREATININE SERUM 1.09 MG/DL (0.60-1.30); GFR ESTIMATED 49; GLUCOSE 93 MG/DL (70-105); POTASSIUM 4.1 MMOL/L (3.6-5.0); SODIUM 141 MMOL/L (135-145); TOTAL PROTEIN 6.4 GM/DL (6.4-8.2)
[2019-02-19 13:33] LABS: BILIRUBIN,URINE NEGATIVE (NEGATIVE); COLOR,URINE YELLOW; GLUCOSE, URINE (UA) NEGATIVE (NEGATIVE); KETONES,URINE NEGATIVE (NEGATIVE); LEUKOCYTE ESTERASE ,URINE 1+ (NEGATIVE); NITRITE,URINE POSITIVE (NEGATIVE); PH,URINE 6 (5-9); PROTEIN,URINE NEGATIVE (NEGATIVE); UROBILINOGEN,URINE NORMAL (NORMAL)
[2019-02-19 13:39] LABS: BACTERIA,URINE TRACE /HPF; CLARITY,URINE CLEAR
[2019-02-19] MEDS ORDERED: CIPR500T4 PO (13:52)
[2019-02-19 13:59] VITALS: BP 123/60
== END 2019-02-19 13:59 | disposition home or self-care (01) ==
LOC: EDUNIT# 11:50 → ER 11:51
DX: R60.0 Localized edema (principal); N39.0 Urinary tract infection, site not specified; I11.0 Hypertensive heart disease with heart failure; I50.9 Heart failure, unspecified; I48.91 Unspecified atrial fibrillation; J44.9 Chronic obstructive pulmonary disease, unspecified; G47.30 Sleep apnea, unspecified; E78.00 Pure hypercholesterolemia, unspecified; I25.10 Atherosclerotic heart disease of native coronary artery without angina pectoris; K58.9 Irritable bowel syndrome, unspecified; K21.9 Gastro-esophageal reflux disease without esophagitis; M51.36 Other intervertebral disc degeneration, lumbar region; F41.9 Anxiety disorder, unspecified; F32.9 Major depressive disorder, single episode, unspecified; Z82.49 Family history of ischemic heart disease and other diseases of the circulatory system; Z79.01 Long term (current) use of anticoagulants; Z88.0 Allergy status to penicillin; Z91.041 Radiographic dye allergy status; Z87.891 Personal history of nicotine dependence; Z98.890 Other specified postprocedural states; Z95.1 Presence of aortocoronary bypass graft
CPT/HCPCS: 36415; 71046; 80053; 81000; 83880; 84484; 85025; 85379; 85610; 85730; 87077; 87088; 87186

== ENCOUNTER → 2019-03-09 | Outpatient (CLI) | payer MEDICARE, OTHER ==
[~2019-03-09] MED LIST changes: +CIPR500T4 PO; +OMEP20CA13 PO
--- NOTE | 2019-03-09 17:25 | Diagnostic Imaging Report ---
INDICATION: Pain and swelling. Three views were obtained. FINDINGS: There are mild degenerative changes. There is no fracture or dislocation. Soft tissues are unremarkable. IMPRESSION: Mild degenerative changes otherwise unremarkable. Dictated by: Dictated on workstation # [id number]
== END ==
LOC: RAD 14:12
PROVIDERS: ATTEND Nurse Practitioner Family
DX: M17.11 Unilateral primary osteoarthritis, right knee (principal)
CPT/HCPCS: 73562

== ENCOUNTER 2019-03-30 08:40 | Outpatient (RCR) | payer MEDICARE, OTHER | END 2019-06-28 | disposition home or self-care (01) | LOC: CARD 08:40 | PROVIDERS: ATTEND Internal Medicine Interventional Cardiology | DX: I48.0 Paroxysmal atrial fibrillation (principal); G47.33 Obstructive sleep apnea (adult) (pediatric); I49.5 Sick sinus syndrome ==

== ENCOUNTER → 2019-05-04 | Day surgery (SDC) | payer MEDICARE, OTHER ==
[~2019-05-04] VITALS: Ht 167.7 cm; Wt 115.4 kg
[~2019-05-04] MED LIST changes: +LIDOCAINE 1% INJ 20 ML 20 ML VIAL ONE
[2019-05-04 08:14] VITALS: BP 117/57
--- NOTE | 2019-05-04 15:32 | Implantation of Loop Monitor ---
Implant of Loop Monitior PROCEDURE PHYSICIAN: Saray Chauhan MD IMPLANTATION OF LOOP MONITOR REPORT DATE OF PROCEDURE: 05/04/19 PERFORMING PHYSICIAN: Dr. Yoni Chauhan. INDICATION: Long-term surveillance of atrial fibrillation PREOP DIAGNOSIS: Long-term surveillance of atrial fibrillation POSTOP DIAGNOSIS: Atrial fibrillation, s/p implantation of loop recorder. PROCEDURE DETAILS: The patient is a 73 female with history of paroxysmal atrial fibrillation r equiring long-term surveillance. Therefore implantable loop recorder was discussed and agreed with the patient. Informed consent was taken. All risks and complications were discussed at length. The patient was draped and prepped in the usual sterile fashion. Local anesthesia was lidocaine, which was given in the substernal area close to the 4th intercostal space. Loop monitor was implanted according to the protocol. Steri-Strips were placed at the end of the procedure. There were no complications and the patient tolerated the procedure well. ANESTHESIA: Local anesthesia with lidocaine. COMPLICATIONS: None CONTRAST/FLUOROSCOPY: None CONCLUSION: 1. Successful implantation of loop monitor for long-term surveillance of paroxysmal atrial fibrillation. 2. No complication and the patient tolerated the procedure well. Saray Chauhan MD, RS, CCDS Cardiac Electrophysiology Alia CHAUHAN MD May 04, 2019 15:32
== END ==
LOC: CATH 07:56
PROVIDERS: ATTEND Internal Medicine Interventional Cardiology
DX: I48.0 Paroxysmal atrial fibrillation (principal); I25.10 Atherosclerotic heart disease of native coronary artery without angina pectoris; I49.5 Sick sinus syndrome; I71.4 Abdominal aortic aneurysm, without rupture; I10 Essential (primary) hypertension; E78.5 Hyperlipidemia, unspecified; E66.09 Other obesity due to excess calories; G47.33 Obstructive sleep apnea (adult) (pediatric); Z68.41 Body mass index [BMI] 40.0-44.9, adult; Z95.1 Presence of aortocoronary bypass graft; Z79.01 Long term (current) use of anticoagulants; Z91.041 Radiographic dye allergy status; Z88.0 Allergy status to penicillin; Z91.048 Other nonmedicinal substance allergy status; Z95.818 Presence of other cardiac implants and grafts; Z90.710 Acquired absence of both cervix and uterus; Z90.49 Acquired absence of other specified parts of digestive tract; Z90.89 Acquired absence of other organs; Z79.899 Other long term (current) drug therapy; Z82.49 Family history of ischemic heart disease and other diseases of the circulatory system
CPT/HCPCS: 33285

== ENCOUNTER → 2019-05-29 | Outpatient (CLI) | payer MEDICARE, OTHER ==
[~2019-05-29] MED LIST changes: -LIDOCAINE 1% INJ 20 ML 20 ML VIAL ONE; +RT-ALBUTEROL SULF 2.5 MG/3 ML PRE-MIX VIAL INH ONE
--- NOTE | 2019-05-29 08:42 | Diagnostic Imaging Report ---
EXAMINATION: CHEST (PA AND LATERAL) CLINICAL INDICATION: 73-year-old female, shortness of breath, cough. COMPARISON: February 19, 2019. FINDINGS: There are median sternotomy wires. Stable overall appearance of the cardiomediastinal silhouette. There is no identified pneumothorax. There is no pleural effusion. There is no interval focal airspace consolidation. Predominant linear-appearing opacities in the lung bases are unchanged. IMPRESSION: 1. No identified interval acute cardiopulmonary abnormality. Dictated by: Dictated on workstation # [id number]
[2019-05-29 10:00] LABS: ABG BASE EXCESS 1.9 MMOL/L (-2.5-2.5); ABG OXYGEN SATURATION 93 % (94-100); ABG PCO2 44 MMHG (35-45); ABG PH 7.39 (7.37-7.43); ABG PO2 71 MMHG (79-93); ABG TCO2 27.5 MMOL/L (21.0-31.0)
[2019-05-29 10:06] LABS: ALLENS TEST YES-POS; INSPIRED O2 ROOM AIR; PATIENT TEMP 37.8; VENTILATOR NO
--- NOTE | 2019-05-29 10:48 | NUR ---
PATIENT WAS ON RA AND SATTING 88% SO RT PLACED 2 L NC ON PATIENT AND HER SAT WENT UP TO 92%; AT THE BEGINNING OF THE WALK PATIENT WAS ON 2 L WITH O2 SAT 96%; 1 MIN O2 SAT 93% HR 97 WALKED 84 FT; 2 MIN O2 SAT 93% HR 96 WALKED 60 FT AT 0415 LEFT TO WALK PATIENT HAD TO STOP AND REST FOR 35 SECS; 4 MIN O2 SAT 94% HR 97 WALKED 36 FT AT 0230 MINS PATIENT HAD TO STOP AND SIT FOR 55 SECS; 5 MIN O2 SAT 94% HR 99 WALKED 24 FT; 6 MIN O2 SAT 93% HR 97 WALKED 60 FT: PATIENT WAS PLACED ON 2 L NC AT REST DUE TO O2 SAT 88%; O2 AT 2 L AT REST AND ON EXERTION. O2 ON 2 L LOWEST O2 SAT 93%; HR 90 TO 97; PATIENT WALKED A TOTAL OF 360 FT AND HAD TO STOP TO REST TWICE FOR A TOTAL OF 1 MIN AND 30 SECS.
== END ==
LOC: RT 07:51
PROVIDERS: ATTEND Nurse Practitioner Family
DX: I48.91 Unspecified atrial fibrillation (principal); G47.33 Obstructive sleep apnea (adult) (pediatric); J30.9 Allergic rhinitis, unspecified; Z98.890 Other specified postprocedural states
CPT/HCPCS: 36600; 71046; 82805; 94060; 94726; 94729; 94761

== ENCOUNTER → 2019-06-15 | Outpatient (CLI) | payer MEDICARE, OTHER ==
[~2019-06-15] MED LIST changes: -RT-ALBUTEROL SULF 2.5 MG/3 ML PRE-MIX VIAL INH ONE
--- NOTE | 2019-06-15 12:11 | Diagnostic Imaging Report ---
EXAMINATION: CT Chest without contrast. TECHNIQUE: Multiple contiguous axial images were obtained through the chest without the use of intravenous contrast. All CT scans use one or more of the following dose optimizing techniques: automated exposure control, MA and/or KvP adjustment based on a patient size and exam type, or iterative reconstruction. HISTORY: COPD COMPARISON: 08/26/2018 FINDINGS: The lungs are clear without edema or pneumonia. No pleural effusion or pneumothorax. No suspicious nodules. There is mild atelectasis in the lung bases. Left ventricle is dilated. There are severe coronary artery calcifications. Loop recorder is present. There has been median sternotomy for coronary artery bypass grafting. No pericardial effusion. Aorta is normal in caliber. There is no axillary or supraclavicular lymphadenopathy. There is no mediastinal lymphadenopathy. Limited views of the upper abdomen are unremarkable. There are no suspicious osseous lesions. There is a stable lower thoracic moderate compression fracture. IMPRESSION: 1. Clear lungs with the exception of mild atelectasis in the bases. Dictated by: Dictated on workstation # [id number]
== END ==
LOC: RAD 10:01
PROVIDERS: ATTEND Nurse Practitioner Family
DX: J98.11 Atelectasis (principal); J44.9 Chronic obstructive pulmonary disease, unspecified; G47.33 Obstructive sleep apnea (adult) (pediatric); R91.8 Other nonspecific abnormal finding of lung field; Z87.891 Personal history of nicotine dependence
CPT/HCPCS: 71250

== ENCOUNTER 2019-07-05 19:07 | Outpatient (CLI) | payer MEDICARE, OTHER | END 2019-07-06 07:03 | disposition home or self-care (01) | LOC: SLEEP 19:07 | PROVIDERS: ATTEND Internal Medicine Critical Care Medicine | DX: G47.33 Obstructive sleep apnea (adult) (pediatric) (principal); I48.91 Unspecified atrial fibrillation; J30.9 Allergic rhinitis, unspecified; I25.10 Atherosclerotic heart disease of native coronary artery without angina pectoris; I10 Essential (primary) hypertension; E78.5 Hyperlipidemia, unspecified; Z90.49 Acquired absence of other specified parts of digestive tract; Z90.710 Acquired absence of both cervix and uterus | CPT/HCPCS: 95810 ==

== ENCOUNTER 2019-08-14 09:14 | Inpatient (IN) | payer MEDICARE, OTHER ==
[~2019-08-14] VITALS: Ht 167 cm; Wt 115.4 kg
[~2019-08-14 09:14] MED LIST changes: -CHLO473M MM; -METO-370 PO; -METO-395 PO; +METO50TA7 PO; +MTP100TCR PO; +NFCHLORHGL MM; +OMEP-280 PO; -OMEP20CA13 PO; -SACU1TAB PO; +SACU1TAB2 PO; -TRAZ-222 PO
[2019-08-14 10:15] VITALS: BP 130/72
[2019-08-14 10:25] VITALS: BP 130/72
[2019-08-14 12:02] VITALS: BP 145/76
[2019-08-14] MEDS ORDERED: WARF4TAB70 PO (13:30)
[2019-08-14] MEDS ORDERED: TRZ50T PO (13:30)
[2019-08-14] MEDS ORDERED: AMLO5TAB9 PO (13:30)
[2019-08-14] MEDS ORDERED: VALS160T29 PO (13:37)
[2019-08-14] MEDS ORDERED: PARO40TA3 PO (13:37)
[2019-08-14] MEDS ORDERED: ATOR40TA70 PO (13:37)
[2019-08-14] MEDS ORDERED: RT-ALBUINH INH (13:52)
[2019-08-14] MEDS ORDERED: GABA-486 PO (13:53)
[2019-08-14] MEDS ORDERED: TETR15DR74 OU (13:55)
[2019-08-14] MEDS ORDERED: FLUT1DIS26 IH (13:57)
--- NOTE | 2019-08-14 13:57 | NUR ---
SPOKE WITH THE PT (SHE HAD HER HOME MEDS WITH HER) WENT THRU THE EXT MED HISTORY AND CALLED [facility] AND DR. CHAN OFFICE TO COMPLETE THE MED REC. THE PT WAS ABLE TO TELL ME HOW/WHEN SHE TAKES EACH MEDICATION. THE FOLLOWING ARE FILL DATES THAT ARE NOT LISTED ON THE EXT MED HISTORY: 06-12-2019 VENTOLIN #1 06-13-2019 ADVAIR #3/90DS 07-13-2019 GABAPENTIN #90/30 DS 07-17-2019 PAROXETINE #90/90DS 08-01-2019 TRAZODONE #30/30DS 08-01-2019 AMLODIPINE #30/30DS FUROSEMIDE 20MG: THE DIRECTIONS SHOW " 2 TABS AM AND 2 TABS AT NOON" BUT PT SAYS SHE ONLY TAKES 1 TAB DAILY NOW. POTASSIUM: DIRECTIONS SHOW " 3 TABS X 5 DAYS, THEN 1 BID THEREAFTER" HOWEVER PT ONLY TAKES 1 TAB DAILY. OTC MEDS: VISINE VIT D
--- NOTE | 2019-08-14 14:16 | History & Physicial-Cardiolgy ---
HPI-Cardiology Cardiology Consultation: Date of Consultation 08/14/19 Date of Admission Attending Physician Alia Chauhan MD Admitting Physician Scarlett Spring MD Consulting Physician Alia CHAUHAN MD HPI: Time Seen by a Provider: 14:16 Chief Complaint: Atrial fibrillation this is a 74-year-old lady who has been referred by Dr. Tinoco for atrial fibrillation management. She has history of paroxysmal atrial fibrillation for the last 2 years. She is intolerant to sotalol. She was started on amiodarone however she has developed worsening shortness of breath and amiodarone toxicity is suspected. Therefore amiodarone was discontinued and patient was started on multaq. Multaq was started on 01/17/2019. However the medication is not affordable for the patient. The patient has history of obesity, obstructive sleep apnea, COPD requiring 2 liters of oxygen, left atrial size of 4.5 cm on an echocardiogram done in generally 2018. Patient does have history of CAD and CABG. Patient is on Coumadin for oral anticoagulation. Patient is being admitted to consider dofetilide loading. Review of Systems-Cardiology Review of Systems Constitutional: As described under HPI; No As described under HPI, No no symptoms reported, No chills, No fever, No lightheadedness Eyes: No As described under HPI, No no symptoms reported, No blindness, No blurred vision, No contact lenses, No drainage, No decreased acuity, No foreign body sensation, No pain, No vision change Ears/Nose/Throat: No As described under HPI, No no symptoms reported, No chronic hearing loss, No ear discharge, No ear pain, No nasal drainage, No ulcerations Respiratory: No no symptoms reported; As described under HPI; No As described under HPI, No cough, No orthopnea, No shortness of breath, No SOB with excertion Cardiovascular: No no symptoms reported; As described under HPI; No As de scribed under HPI, No chest pain, No edema, No irregular heart rate, No lightheadedness, No palpitations Gastrointestinal: No no symptoms reported, No As described under HPI, No abdomen distended, No abdominal pain, No blood streaked bowels, No constipation, No diarrhea, No nausea, No vomiting, No stool coloration changes Genitourinary: No As described under HPI, No burning, No dysuria, No discharge, No frequency, No flank pain, No hematuria, No urgency : Yes : No Skin: No rash, No skin related problems, No ulcerations Psychiatric/Neurological: No anxiety, No depression, No seizure, No focal weakness, No syncope Hematologic: No bleeding abnormalities OJM-Cwisms-Bmvrvg Hx Patient Social History Alcohol Use: Denies Use Recreational Drug Use: No Smoking Status: Former Smoker Former smoker/When Quit: Sep 07, 1990 Type Used: Cigarettes 2nd Hand Smoke Exposure: No Recent Foreign Travel: No Recent Infectious Disease Expo: No Physical Abuse Screen: No Sexual Abuse: No Immunizations Up To Date Tetanus Booster (TDap): Unknown Date of Pneumonia Vaccine: Mar 23, 2017 Date of Influenza Vaccine: Apr 25, 2019 Past Medical History PMH As described under Assessment. Family Medical History Family History: Arthritis Cardiovascular disease 19 FATHER 19 MOTHER G8 BROTHER FH: [place] (myocardial infarction) 19 FATHER ( at 67 from [place]) 19 MOTHER ( at 39 from [place]) Hypertension Allergies and Home Medications Allergies Coded Allergies: Iodinated Contrast Media (Unverified Allergy, Mild, NAUSEA, 04/24/07) Pt states it's the IV dye used in heart tests not CT scans penicillin G (Verified Allergy, Mild, RASH, 03/23/18) RASH Home Medications Albuterol Sulfate 1 Puff Puff, 2 PUFF INH Q4H PRN for SHORTNESS OF BREATH, (Reported) Amlodipine Besylate 5 Mg Tablet, 5 MG PO DAILY, (Reported) Atorvastatin Calcium 40 Mg Tablet, 40 MG PO DAILY, (Reported) Cholecalciferol (Vitamin D3) 2,000 Unit Tablet, 2,000 UNIT PO DAILY, (Reported) Fluticasone/Salmeterol 1 Each Blst.w.dev, 1 EACH IH BID, (Reported) Furosemide 20 Mg Tablet, 20 MG PO DAILY, (Reported) LAST FILLED 03-09-2019 #120 Gabapentin 100 Mg Capsule, 100 MG PO Q8H PRN for NERVE PAIN, (Reported) Omeprazole 20 Mg Capsule.dr, 20 MG PO HS, (Reported) Paroxetine HCl 40 Mg Tablet, 40 MG PO DAILY, (Reported) Potassium Chloride 10 Meq Tab.er.prt, 10 MEQ PO DAILY, (Reported) Terazosin HCl 5 Mg Capsule, 5 MG PO DAILY, (Reported) Tetrahydrozoline HCl 15 Ml Drops, 2 DROPS OU PRN PRN for DRY EYES, (Reported) Trazodone HCl 50 Mg Tablet, 50 MG PO DAILY, (Reported) Valsartan 160 Mg Tablet, 160 MG PO DAILY, (Reported) Warfarin Sodium 4 Mg Tablet, 4 MG PO DAILY, (Reported) Zolpidem Tartrate 10 Mg Tablet, 10 MG PO HS, (Reported) Patient Home Medication List Home Medication List Reviewed: Yes Physical Exam-Cardiology Physical Exam Vital Signs/I&O 08/14/19 08/14/19 08/14/19 08/14/19 10:15 10:22 10:25 12:00 Temp 36.4 36.4 Pulse 81 81 Resp 16 16 B/P (MAP) 130/72 (91) 130/72 Pulse Ox 96 96 96 O2 Delivery Nasal Cannula Nasal Cannula Nasal Cannula Nasal Cannula O2 Flow Rate 2.00 2.00 2.00 2.00 2.00 08/14/19 08/14/19 08/14/19 08/14/19 12:02 12:33 15:02 15:25 Temp 36.7 36.3 Pulse 75 63 69 Resp 18 18 B/P (MAP) 145/76 (99) 145/78 (100) Pulse Ox 96 96 98 O2 Delivery Nasal Cannula O2 Flow Rate 2.00 2.00 2.00 Capillary Refill : Constitutional: appears stated age; No apparent distress; well-developed, well- nourished HEENT: PERRL; No discharge; hearing is well preserved, oral hygience is good; No ulceration, No xanthelasmas are seen Neck: No carotid bruit; carotid pulses are 2 + bilaterally Respiratory: chest is bilaterally symmetric, lungs clear to auscultation Cardiovascular: regular rate-rhythm, S1 and S2 Gastrointestinal: soft, audible bowel sounds; No spleenomegaly Rectal: deferred Extremities: normal range of motion, non-tender, normal inspection; No clubbing, No cyanosis; no lower extremity edema bilateral; No significant edema Neurologic/Psychiatric: no motor/sensory deficits, alert, normal mood/affect, oriented x 3, power is 5/5 both on sides Skin: normal color; No rash, No ulcerations Data Review Labs Laboratory Tests 08/14/19 14:55: Sodium Level 141, Potassium Level 4.0, Chloride Level 109H, Carbon Dioxide Level 25, Anion Gap 7, Blood Urea Nitrogen 15, Creatinine 0.97, Estimat Glomerular Filtration Rate 56, BUN/Creatinine Ratio 15, Glucose Level 109H, Calcium Level 8.1L, Magnesium Level 1.9 ECG Impression ECG Initial ECG Rhythm: Normal Sinus Comment QTc interval 470 ms. A/P-Cardiology Assessment/Admission Diagnosis Paroxysmal atrial fibrillation, Sinus bradycardia, Obesity, Obstructive sleep apnea, COPD, CAD/CABG Admission Status: Observation Plan Patient was admitted for paroxysmal atrial fibrillation, for dofetilide loading. The patient has history of proximal atrial fibrillation and is intolerant to sotalol. She was started on amiodarone however she developed worsening shortness of breath and amiodarone toxicity was suspected. Patient was then started on multaq but the medication is not for double for the patient. The only other option since the patient has CAD/CABG is to start dofetilide. However baseline EKG shows a QTc interval of 470 ms which is a contraindication for dofetilide. Therefore the patient will be discharged on metoprolol and oral anticoagulation and follow up in the office in 8 weeks. Clinical Quality Measures DVT/VTE Risk/Contraindication: Risk Factor Score Per Nursin RFS Level Per Nursing on Admit: 4+=Very High Alia CHAUHAN MD Aug 14, 2019 14:16
[2019-08-14 15:25] VITALS: BP 145/78
[2019-08-14 15:36] LABS: CALCIUM 8.1 MG/DL (8.5-10.1); CREATININE SERUM 0.97 MG/DL (0.60-1.30)
--- NOTE | 2019-08-14 17:53 | Cardiology Discharge Summary ---
Diagnosis/Chief Complaint Date of Admission Aug 14, 2019 at 10:00 Date of Discharge Aug 14, 2019 at 16:55 Admission Diagnosis Paroxysmal atrial fibrillation Final/Discharge Diagnosis Paroxysmal atrial fibrillation Chief Complaint/HPI Chief Complaint/HPI this is a 74-year-old lady who has been referred by Dr. Tinoco for atrial fibrillation management. She has history of paroxysmal atrial fibrillation for the last 2 years. She is intolerant to sotalol. She was started on amiodarone however she has developed worsening shortness of breath and amiodarone toxicity is suspected. Therefore amiodarone was discontinued and patient was started on multaq. Multaq was started on 01/17/2019. However the medication is not affordable for the patient. The patient has history of obesity, obstructive sleep apnea, COPD requiring 2 liters of oxygen, left atrial size of 4.5 cm on an echocardiogram done in 2018. Patient does have history of CAD and CABG. Patient is on Coumadin for oral anticoagulation. Patient is being admitted to consider dofetilide loading. Discharge Summary Procedures None. Discharge Physical Examination Unremarkable Hospital Course Was the Problem List Reviewed?: Yes Unremarkable Pending Labs Laboratory Tests 08/14/19 14:55: Sodium Level 141, Potassium Level 4.0, Chloride Level 109, Carbon Dioxide Level 25, Anion Gap 7, Blood Urea Nitrogen 15, Creatinine 0.97, Estimat Glomerular Filtration Rate 56, BUN/Creatinine Ratio 15, Glucose Level 109, Calcium Level 8.1, Magnesium Level 1.9 Discussion & Recommendations Discussion Patient was admitted for dofetilide loading. However baseline EKG showed sinus rhythm with QTc interval of 470 ms which is a contraindication. Therefore patient will be discharged on metoprolol and oral anti-coag ablation and follow- up in the office in 8 weeks. Follow up appt.: Dr. Chauhan in 8 weeks. Dicharge Diet: Cardiac Diet Activity as Tolerated: Yes Home Medications Reviewed patient Home Medication Reconciliation performed by pharmacy medication reconciliations chiller technician and/or nursing. Patients Allergies have been reviewed. Discharge Home Medications: Reviewed and agree with Discharge Medication list on patient's Discharge Instruction sheet Condition at discharge Stable. Instructions to patient/family Discussed with the patient. Clinical Quality Measures DVT/VTE Risk/Contraindication: Risk Factor Score Per Nursin RFS Level Per Nursing on Admit: 4+=Very High Alia CHAUHAN MD Aug 14, 2019 17:53
== END 2019-08-14 16:55 | disposition home or self-care (01) | DRG 309 ==
LOC: CSD 10:00
PROVIDERS: ADMIT Internal Medicine Interventional Cardiology; ATTEND Internal Medicine Interventional Cardiology
DX: I48.0 Paroxysmal atrial fibrillation (principal); R00.1 Bradycardia, unspecified; E66.9 Obesity, unspecified; Z68.41 Body mass index [BMI] 40.0-44.9, adult; G47.33 Obstructive sleep apnea (adult) (pediatric); J44.9 Chronic obstructive pulmonary disease, unspecified; I25.10 Atherosclerotic heart disease of native coronary artery without angina pectoris; I10 Essential (primary) hypertension; E78.5 Hyperlipidemia, unspecified; Z95.1 Presence of aortocoronary bypass graft; Z99.81 Dependence on supplemental oxygen; Z79.01 Long term (current) use of anticoagulants; Z87.891 Personal history of nicotine dependence
CPT/HCPCS: 36415; 80048; 83735; 93005

== ENCOUNTER 2019-08-28 09:16 | Outpatient (RCR) | payer MEDICARE, OTHER ==
[~2019-08-28 09:16] MED LIST changes: +AMLO5TAB9 PO; +ATOR40TA70 PO; +FLUT1DIS26 IH; +GABA-486 PO; -OMEP-280 PO; +OMEP20CA18 PO; +PARO40TA3 PO; +RT-ALBUINH INH; +TETR15DR74 OU; +VALS160T29 PO; +WARF4TAB70 PO
[2019-08-28 09:45] LABS: INR 1.5 (0.8-1.4); PROTHROMBIN TIME PATIENT 18.7 SEC (12.2-14.7)
[2019-09-02] MEDS ORDERED: TMSL.4C PO (19:40)
[2019-09-02] MEDS ORDERED: DOXY100T2 PO (19:40)
[2019-11-28] MEDS ORDERED: CHOL2000 PO (09:32)
[2019-11-28] MEDS ORDERED: OXYB10TA29 PO (09:32)
== END 2019-11-26 | disposition home or self-care (01) ==
LOC: LAB 09:16
PROVIDERS: ATTEND Internal Medicine Cardiovascular Disease
DX: I48.91 Unspecified atrial fibrillation (principal)
CPT/HCPCS: 36415; 85610

== ENCOUNTER 2019-09-02 17:01 | Emergency (ER) | payer MEDICARE, OTHER ==
[~2019-09-02] VITALS: Ht 167 cm; Wt 114.0 kg
[~2019-09-02 17:01] MED LIST changes: +OMEP-280 PO; -OMEP20CA18 PO
--- NOTE | 2019-09-02 17:56 | ED GU-Female ---
General Chief Complaint: - Urinary Stated Complaint: UNABLE TO URINATE Nursing Triage Note: STATES SHE HAS BEEN HAVING TROUBLE WITH HER BLADDER FOR A WHILE BUT NOW SHE CAN NOT PEE. HAS AN APPT WITH [facility] ON THE . Nursing Sepsis Screen: No Definite Risk History of Present Illness Date Seen by Provider: Sep 02, 2019 Time Seen by Provider: 17:20 Initial Comments 74-year-old female presents for urinary retention. She states over the last month she has been dealing with this problem. She has not seen her primary care provider for it. She does have an appointment scheduled with Dr. Santoyo for later this month. She reports trace dribbles of urine but it has been approximately 24 hours since she was able to empty her bladder. Denies any back injuries, she has chronic back problems but nothing new at this time. She had normal BM this morning. She feels the urge to urinate but unable to. She had a bladder sling surgery by Dr. Ewing several years ago. She denies any bladder or uterine prolapse. Timing/Duration: getting worse Prior Genitourinary Problems: none Associated Symptoms: denies symptoms Allergies and Home Medications Allergies Coded Allergies: Iodinated Contrast Media (Unverified Allergy, Mild, NAUSEA, 04/24/07) Pt states it's the IV dye used in heart tests not CT scans penicillin G (Verified Allergy, Mild, RASH, 03/23/18) RASH Home Medications Albuterol Sulfate 1 Puff Puff, 2 PUFF INH Q4H PRN for SHORTNESS OF BREATH, (Reported) Amlodipine Besylate 5 Mg Tablet, 5 MG PO DAILY, (Reported) Atorvastatin Calcium 40 Mg Tablet, 40 MG PO DAILY, (Reported) Cholecalciferol (Vitamin D3) 2,000 Unit Tablet, 2,000 UNIT PO DAILY, (Reported) Doxycycline Hyclate 100 Mg Tablet, 100 MG PO BID Prescribed by: MALIKA HARRIS on 09/02/191939 Fluticasone/Salmeterol 1 Each Blst.w.dev, 1 EACH IH BID, (Reported) Furosemide 20 Mg Tablet, 20 MG PO DAILY, (Reported) LAST FILLED 03-09-2019 #120 Gabapentin 100 Mg Capsule, 100 MG PO Q8H PRN for NERVE PAIN, (Reported) Omeprazole 20 Mg Capsule.dr, 20 MG PO HS, (Reported) Paroxetine HCl 40 Mg Tablet, 40 MG PO DAILY, (Reported) Potassium Chloride 10 Meq Tab.er.prt, 10 MEQ PO DAILY, (Reported) Tamsulosin HCl 0.4 Mg Cap, 0.4 MG PO DAILY Prescribed by: MALIKA HARRIS on 09/02/191939 Terazosin HCl 5 Mg Capsule, 5 MG PO DAILY, (Reported) Tetrahydrozoline HCl 15 Ml Drops, 2 DROPS OU PRN PRN for DRY EYES, (Reported) Trazodone HCl 50 Mg Tablet, 50 MG PO DAILY, (Reported) Valsartan 160 Mg Tablet, 160 MG PO DAILY, (Reported) Warfarin Sodium 4 Mg Tablet, 4 MG PO DAILY, (Reported) Zolpidem Tartrate 10 Mg Tablet, 10 MG PO HS, (Reported) Patient Home Medication List Home Medication List Reviewed: Yes Review of Systems Review of Systems Constitutional: no symptoms reported, see HPI Genitourinary: see HPI, other (urinary retention) All Other Systemes Reviewed Negative Unless Noted: Yes Past Kazgnco-Wvmwbv-Qzzaae Hx Past Med/Social Hx: Reviewed Nursing Past Med/Soc Hx Patient Social History Alcohol Use: Denies Use Recreational Drug Use: No Smoking Status: Former Smoker Type Used: Cigarettes Former Smoker, Quit: Aug 14, 1990 2nd Hand Smoke Exposure: No Recent Foreign Travel: No Contact w/Someone Who Travel: No Recent Infectious Disease Expo: No Recent Hopitalizations: No Immunizations Up To Date Tetanus Booster (TDap): Unknown Date of Pneumonia Vaccine: Mar 23, 2017 Date of Influenza Vaccine: Apr 25, 2019 Seasonal Allergies Seasonal Allergies: No Past Medical History Surgeries: Yes (HERNIA REPAIR; EGD; VIANCA/CARDIOVERSION) CABG, Gallbladder, Hysterectomy Respiratory: Yes Sleep Apnea Currently Using CPAP: Yes (currently getting work up for sleep apnea) Currently Using BIPAP: No Cardiac: Yes Atrial Fibrillation, Coronary Artery Disease, High Cholesterol, Hypertension Neurological: No Reproductive Disorders: No Female Reproductive Disorders: Denies Sexually Transmitted Disease: No HIV/AIDS: No Genitourinary: Yes UTI-Chronic Gastrointestinal: Yes Gastroesophageal Reflux Musculoskeletal: Yes (hx fx left wrist, lower back disc ) Degenerate Disk Disease, Arthritis, Chronic Back Pain Endocrine: No HEENT: Yes (bilateral cataracts removed) Cataract Loss of Vision: Denies Hearing Impairment: Hard of Hearing Cancer: No Psychosocial: Yes Anxiety, Depression Integumentary: Yes (chronic abd folds/under breast rash ) Blood Disorders: No Adverse Reaction/Blood Tranf: No Family Medical History Arthritis Cardiovascular disease 19 FATHER 19 MOTHER G8 BROTHER FH: [place] (myocardial infarction) 19 FATHER ( at 67 from [place]) 19 MOTHER ( at 39 from [place]) Hypertension CAD Over 55 Years Old Physical Exam Vital Signs Vital Signs - First Documented 09/02/19 17:09 Temp 37.3 Pulse 86 Resp 16 B/P (MAP) 130/62 (84) Pulse Ox 96 O2 Delivery Room Air Capillary Refill : Less Than 3 Seconds Height, Weight, BMI Height: 5'6.00" Weight: 254lbs. 0.0oz. [id number]; 40.00 BMI Method:Stated General Appearance: WD/WN, no apparent distress, obese Cardiovascular: normal peripheral pulses, regular rate, rhythm, no edema Respiratory: chest non-tender, lungs clear, normal breath sounds Gastrointestinal: normal bowel sounds, non tender, soft Back: normal inspection, no CVA tenderness, no vertebral tenderness Neurologic/Psychiatric: no motor/sensory deficits, alert, normal mood/affect, oriented x 3 Skin: normal color, warm/dry Progress/Results/Core Measures Suspected Sepsis Recent Fever Within 48 Hours: Yes Infection Criteria Present: Suspected New Infection New/Unexplained Altered Menta: No Sepsis Screen: No Definite Risk SIRS Temperature: Pulse: 86 Respiratory Rate: 16 Laboratory Tests 09/02/19 18:20: White Blood Count 4.4 Blood Pressure 130 /62 Mean: 84 Laboratory Tests 09/02/19 18:20: Creatinine 0.94, Platelet Count 289, Total Bilirubin 0.5 Results/Orders Lab Results Laboratory Tests Test 09/02/19 18:00 09/02/19 18:20 Range/Units Urine Color YELLOW Urine Clarity CLOUDY H Urine pH 5.5 5-9 Urine Specific [place] >=1.030 1.016-1.022 Urine Protein TRACE H NEGATIVE Urine Glucose (UA) NEGATIVE NEGATIVE Urine Ketones NEGATIVE NEGATIVE Urine Nitrite NEGATIVE NEGATIVE Urine Bilirubin 1+ H NEGATIVE Urine Urobilinogen 1.0 < = 1.0 MG/DL Urine Leukocyte Esterase 2+ H NEGATIVE Urine RBC (Auto) TRACE-I NEGATIVE Urine RBC 2-5 H /HPF Urine WBC 50-100 H /HPF Urine Squamous Epithelial Cells NONE /HPF Urine Crystals NONE /LPF Urine Bacteria TRACE /HPF Urine Casts NONE /LPF Urine Mucus SMALL H /LPF Urine Culture Indicated YES White Blood Count 4.4 4.3-11.0 10^3/uL Red Blood Count 4.59 4.35-5.85 10^6/uL Hemoglobin 11.9 11.5-16.0 G/DL Hematocrit 38 35-52 % Mean Corpuscular Volume 83 80-99 FL Mean Corpuscular Hemoglobin 26 25-34 PG Mean Corpuscular Hemoglobin Concent 31 L 32-36 G/DL Red Cell Distribution Width 17.4 H 10.0-14.5 % Platelet Count 289 130-400 10^3/uL Mean Platelet Volume 10.2 7.4-10.4 FL Neutrophils (%) (Auto) 65 42-75 % Lymphocytes (%) (Auto) 22 12-44 % Monocytes (%) (Auto) 10 0-12 % Eosinophils (%) (Auto) 3 0-10 % Basophils (%) (Auto) 1 0-10 % Neutrophils # (Auto) 2.8 1.8-7.8 X 10^3 Lymphocytes # (Auto) 1.0 1.0-4.0 X 10^3 Monocytes # (Auto) 0.4 0.0-1.0 X 10^3 Eosinophils # (Auto) 0.1 0.0-0.3 10^3/uL Basophils # (Auto) 0.0 0.0-0.1 10^3/uL Sodium Level 142 135-145 MMOL/L Potassium Level 3.8 3.6-5.0 MMOL/L Chloride Level 107 98-107 MMOL/L Carbon Dioxide Level 24 21-32 MMOL/L Anion Gap 11 5-14 MMOL/L Blood Urea Nitrogen 13 7-18 MG/DL Creatinine 0.94 0.60-1.30 MG/DL Estimat Glomerular Filtration Rate 58 BUN/Creatinine Ratio 14 Glucose Level 87 70-105 MG/DL Calcium Level 9.2 8.5-10.1 MG/DL Corrected Calcium 9.1 8.5-10.1 MG/DL Total Bilirubin 0.5 0.1-1.0 MG/DL Aspartate Amino Transf (AST/SGOT) 23 5-34 U/L Alanine Aminotransferase (ALT/SGPT) 18 0-55 U/L Alkaline Phosphatase 84 40-136 U/L Total Protein 7.3 6.4-8.2 GM/DL Albumin 4.1 3.2-4.5 GM/DL My Orders Orders - MALIKA HARRIS PEÑA Ua Culture If Indicated (09/02/19 17:30) Catheter(Urinary) Care .0300, 1500 (09/02/19 17:38) Cbc With Automated Diff (09/02/19 18:06) Comprehensive Metabolic Panel (09/02/19 18:06) Ed Iv/Invasive Line Start (09/02/19 18:09) Ns Iv 1000 Ml (Sodium Chloride 0.9%) (09/02/19 18:09) Urine Culture (09/02/19 18:00) Phenazopyridine Tablet (Pyridium Tablet) (09/02/19 18:30) Ct Abd/Pelvis Wo(Kidney Stone) (09/02/19 18:48) Rx-Doxycycline Tablet (Rx-Vibramycin Tab (09/02/19 19:34) Medications Given in ED Current Medications Medications Dose Ordered Sig/Dominique Route Start Time Stop Time Status Last Admin Dose Admin Phenazopyridine HCl 100 mg ONCE ONCE PO 09/02/19 18:30 09/02/19 18:31 DC 09/02/19 18:40 100 MG Vital Signs/I&O 09/02/19 09/02/19 17:09 20:17 Temp 37.3 37.3 Pulse 86 86 Resp 16 16 B/P (MAP) 130/62 (84) 130/62 (84) Pulse Ox 96 96 O2 Delivery Room Air Room Air Capillary Refill : Less Than 3 Seconds Blood Pressure Mean: 84 Progress Note : Time: 17:20 Progress Note Patient seen and evaluated. Goetz catheter. 1800 Patient had 150 ml urine output, bladder scan revealed trace urine. Patient complaining of discomfort from goetz. Will obtain labs, normal saline 1 L per IV, Pyridium [address] results reviewed with the patient. Patient feels much more relieved and reassured. Discussed UA results and need for antibiotic for urinary tract infec tion. Will DC the Goetz. 1929 discharge instructions and return precautions reviewed with the patient. All questions answered. Diagnostic Imaging Diagonstic Imaging: CT Plain Films/CT/US/NM/MRI: abdomen, pelvis Comments [place] NAME: SAMEERAANNETTE Esther MAYBERRY REC#: [id number] PT STATUS: REG ER : 1945 PHYSICIAN: MALIKA HARRIS ADMIT DATE: 09/02/19/ER Draft Date of Exam:09/02/19 CT ABD/PELVIS WO(KIDNEY STONE) PROCEDURE: CT urinary tract, rule out kidney stone. TECHNIQUE: Multiple contiguous axial images were obtained through the abdomen and pelvis without the use of intravenous contrast. Auto Exposure Controls were utilized during the CT exam to meet ALARA standards for radiation dose reduction. INDICATION: Dysuria Comparison is made to study of 06/15/2019. Unenhanced images of the liver reveal no focal abnormality. Numerous calcified granulomas are again seen in the spleen. Gallbladder is surgically absent. There is no evidence of pancreatic, adrenal gland or renal lesion. There is no hydronephrosis or urinary tract calculus. Urinary bladder is decompressed around a Goetz catheter balloon. There is no evidence of free fluid within the abdomen or pelvis. No localized inflammation is seen. Note is made of aortoiliac atherosclerotic calcification with mild aneurysmal dilatation within the infrarenal abdominal aorta measuring approximately 3 cm in diameter. IMPRESSION: No evidence of acute abnormality seen within the abdomen or pelvis. The urinary bladder is decompressed around a Goetz catheter balloon. Dictated on workstation # [id number] Dict: 09/02/191919 Trans: 09/02/191924 [facility] [id number] Interpreted by: AYANNA CARDENAS MD Electronically signed by: Departure Impression Primary Impression: Urinary retention Additional Impression: UTI (urinary tract infection) Qualified Codes: N30.01 - Acute cystitis with hematuria Disposition: HOME, SELF-CARE Condition: Improved Departure-Patient Inst. Decision time for Depature: 19:30 Referrals: BIBIANA KAPADIA MD (PCP) Primary Care Physician TONYA GLORIA (Family) Primary Care Physician Patient Instructions: Urinary Tract Infection, Adult (DC) Add. Discharge Instructions: Increase water intake, 16 ounces every 2 hours while awake. Drink 1 cup of cranberry juice daily. Take antibiotic and Flomax as directed. Call Dr. Ewing's office on Wednesday morning for earlier follow-up. Call Dr. Peres's office for follow-up if unable to see Dr. Ewing and if symptoms are not improving. Return to emergency department for urgent health care needs. All discharge instructions reviewed with patient and/or family. Voiced understanding. Scripts Tamsulosin HCl (Flomax) 0.4 Mg Cap 0.4 MG PO DAILY, #20 CAP 0 Refills Prov: MALIKA HARRIS 09/02/19 Doxycycline Hyclate (Doxycycline Hyclate) 100 Mg Tablet 100 MG PO BID, #20 TAB 0 Refills Prov: MALIKA HARRIS 09/02/19 Copy Copies To 1: IRIS EWING MD Copies To 2: BIBIANA KAPADIA MD, AMY ARNP Sep 02, 2019 17:56
[2019-09-02 18:09] LABS: COLOR,URINE YELLOW; GLUCOSE, URINE (UA) NEGATIVE (NEGATIVE); KETONES,URINE NEGATIVE (NEGATIVE); LEUKOCYTE ESTERASE ,URINE 2+ (NEGATIVE); NITRITE,URINE NEGATIVE (NEGATIVE); PH,URINE 5.5 (5-9); PROTEIN,URINE TRACE (NEGATIVE)
[2019-09-02] MEDS ORDERED: NS IV 1000 ML 1,000 ML IV SCH (18:09)
[2019-09-02 18:12] LABS: BILIRUBIN,URINE 1+ (NEGATIVE)
[2019-09-02 18:13] LABS: CLARITY,URINE CLOUDY
[2019-09-02 18:15] LABS: BACTERIA,URINE TRACE /HPF; WBC,URINE 50-100 /HPF
[2019-09-02] MEDS ORDERED: PHENAZOPYRIDINE 100 MG (PYRIDIUM) TABLET PO ONE (18:30)
[2019-09-02 18:34] LABS: BASOPHILS % (AUTO) 1 % (0-10); EOSINOPHILS # (AUTO) 0.1 10^3/uL (0.0-0.3); EOSINOPHILS % (AUTO) 3 % (0-10); HEMATOCRIT 38 % (35-52); HEMOGLOBIN 11.9 G/DL (11.5-16.0); LYMPHOCYTES % (AUTO) 22 % (12-44); MEAN CORPUSCULAR HEMOGLOBIN 26 PG (25-34); MEAN CORPUSCULAR HGB CONC 31 G/DL (32-36); MEAN CORPUSCULAR VOLUME 83 FL (80-99); MEAN PLATELET VOLUME 10.2 FL (7.4-10.4); MONOCYTES # (AUTO) 0.4 X 10^3 (0.0-1.0); MONOCYTES % (AUTO) 10 % (0-12); NEUTROPHILS # (AUTO) 2.8 X 10^3 (1.8-7.8); NEUTROPHILS % (AUTO) 65 % (42-75); PLATELET COUNT 289 10^3/uL (130-400); RED CELL DISTRIBUTION WIDTH 17.4 % (10.0-14.5); WHITE BLOOD COUNT 4.4 10^3/uL (4.3-11.0)
[2019-09-02 18:51] LABS: ALBUMIN 4.1 GM/DL (3.2-4.5); BILIRUBIN,TOTAL 0.5 MG/DL (0.1-1.0); CALCIUM 9.2 MG/DL (8.5-10.1); CREATININE SERUM 0.94 MG/DL (0.60-1.30); POTASSIUM 3.8 MMOL/L (3.6-5.0); TOTAL PROTEIN 7.3 GM/DL (6.4-8.2)
--- NOTE | 2019-09-02 19:26 | Diagnostic Imaging Report ---
PROCEDURE: CT urinary tract, rule out kidney stone. TECHNIQUE: Multiple contiguous axial images were obtained through the abdomen and pelvis without the use of intravenous contrast. Auto Exposure Controls were utilized during the CT exam to meet ALARA standards for radiation dose reduction. INDICATION: Dysuria Comparison is made to study of 06/15/2019. Unenhanced images of the liver reveal no focal abnormality. Numerous calcified granulomas are again seen in the spleen. Gallbladder is surgically absent. There is no evidence of pancreatic, adrenal gland or renal lesion. There is no hydronephrosis or urinary tract calculus. Urinary bladder is decompressed around a Khalil catheter balloon. There is no evidence of free fluid within the abdomen or pelvis. No localized inflammation is seen. Note is made of aortoiliac atherosclerotic calcification with mild aneurysmal dilatation within the infrarenal abdominal aorta measuring approximately 3 cm in diameter. IMPRESSION: No evidence of acute abnormality seen within the abdomen or pelvis. The urinary bladder is decompressed around a Khalil catheter balloon. Dictated by: Dictated on workstation # [id number]
[2019-09-02] MEDS ORDERED: RX-DOXYCYCLINE 100 MG (VIBRAMYCIN) TAB PPK#2 PO STA (19:34)
[2019-09-02] MEDS ORDERED: DOXY100T2 PO (19:40)
[2019-09-02] MEDS ORDERED: TMSL.4C PO (19:40)
[2019-09-02 20:17] VITALS: BP 130/62
== END 2019-09-02 20:16 | disposition home or self-care (01) ==
LOC: EDUNIT# 17:01 → ER 17:03
DX: N39.0 Urinary tract infection, site not specified (principal); I10 Essential (primary) hypertension; E78.00 Pure hypercholesterolemia, unspecified; I48.91 Unspecified atrial fibrillation; I25.10 Atherosclerotic heart disease of native coronary artery without angina pectoris; K21.9 Gastro-esophageal reflux disease without esophagitis; F41.9 Anxiety disorder, unspecified; F32.9 Major depressive disorder, single episode, unspecified; G47.30 Sleep apnea, unspecified; Z99.89 Dependence on other enabling machines and devices; Z91.041 Radiographic dye allergy status; Z88.0 Allergy status to penicillin; Z79.51 Long term (current) use of inhaled steroids; Z79.01 Long term (current) use of anticoagulants; Z87.891 Personal history of nicotine dependence; Z95.1 Presence of aortocoronary bypass graft; Z82.49 Family history of ischemic heart disease and other diseases of the circulatory system
CPT/HCPCS: 36415; 74176; 80053; 81000; 85025; 87088; 96360; 96361

== ENCOUNTER 2019-12-01 06:33 | Outpatient (RCR) | payer MEDICARE, OTHER ==
[~2019-12-01] VITALS: Ht 167 cm; Wt 112.0 kg
[~2019-12-01 06:33] MED LIST changes: +CHOL2000 PO; +DOXY100T2 PO; -OMEP-280 PO; +OMEP20CA18 PO; +OXYB10TA29 PO; +TMSL.4C PO
== END 2019-12-01 15:46 | disposition home or self-care (01) ==
LOC: PREOP 06:33
PROVIDERS: ATTEND Urology
DX: Z01.818 Encounter for other preprocedural examination (principal); Z11.59 Encounter for screening for other viral diseases
CPT/HCPCS: 87635

== ENCOUNTER 2019-12-05 06:26 | Day surgery (SDC) | payer MEDICARE, OTHER ==
[~2019-12-05] VITALS: Ht 167 cm; Wt 112.0 kg
[2019-12-05] VITALS (10 sets, daily range): BP systolic 107–143; BP diastolic 48–68
[2019-12-05] MEDS ORDERED: LACTATED RINGERS 1,000 ML IV PRN (06:39)
[2019-12-05] MEDS ORDERED: LEVOFLOXACIN 250 MG/50 ML IVPB 50 ML IV ONE (06:45)
[2019-12-05] MEDS ORDERED: LIDOCAINE PF 2% 5 ML (XYLOCAINE) VIAL ONE (06:57)
[2019-12-05] MEDS ORDERED: SEVOFLURANE (ULTANE) 15 ML INHAL SOLN ONE (06:57)
[2019-12-05] MEDS ORDERED: proPOfol 200 MG/20 ML (DIPRIVAN) VIAL IV ONE (06:57)
[2019-12-05] MEDS ORDERED: DEXAMETHASONE 10 MG/ML (DECADRON) 1 ML VIAL ONE (06:57)
[2019-12-05] MEDS ORDERED: ONDANSETRON 4 MG/2 ML (SDV) Z0FRAN ONE (06:57)
[2019-12-05] MEDS ORDERED: fentaNYL INJECTION 100 MCG/2 ML AMP ONE (06:58)
--- NOTE | 2019-12-05 07:04 | Progress Note-Pre Operative ---
Pre-Operative Progress Note H&P Reviewed The H&P was reviewed, patient examined and no changes noted. Date Seen by Provider: December 05, 2019 Time Seen by Provider: 07:03 Date H&P Reviewed: December 05, 2019 Time H&P Reviewed: 07:03 Pre-Operative Diagnosis: SEVERE URGENCY WITH INCONTINENCE AND OAB IRIS EWING MD December 05, 2019 07:04
--- NOTE | 2019-12-05 07:06 | Progress Note-Post Operative ---
Post-Operative Progess Note Surgeon (s)/Sales Operations Manager (s) Surgeon IRIS EWING MD Sales Operations Manager: NONE Pre-Operative Diagnosis SEVERE URGENCY WITH INCONTINENCE AND OAB Post-Operative Diagnosis SAME Procedure & Operative Findings Date of Procedure 12/05/19 Procedure Performed/Findings INTRAVESICAL BOTOX INJECTION Anesthesia Type GENERAL Estimated Blood Loss Estimated blood loss (mL): NEGLIGIBLE Specimens/Packing Specimens Removed NONE Packing: NONE IRIS EWING MD December 05, 2019 07:06
--- NOTE | 2019-12-05 07:09 | Discharge Inst-Urology ---
Discharge Inst-Urology Reconcile Patient Problems Problems Reviewed?: Yes Final Diagnosis SEVERE URGENCY WITH INCONTINENCE AND OAB Patient Instructions/Follow Up Plan/Assessment/Instructions Please make appointment to been seen in office in 4 weeks. In 48 hours, if no bleeding, may resume Coumadin Stay off Oxybutin Increase oral fluids for 48 hours and then as needed. Diet and Activity as tolerated. If questions or concerns contact your physician Or seek help at emergency department. IRIS EWING MD December 05, 2019 07:09
[2019-12-05] MEDS ORDERED: ONABOTULINUMTOXINA 100 UNIT (BOTOX) VIAL INJ NR (07:30)
[2019-12-05] MEDS ORDERED: 0.9% SODIUM CHLORIDE PF INJ 20 ML VIAL ONE (07:37)
[2019-12-05] MEDS ORDERED: morphine INJ 10 MG/ML 1ML (SYR OR VIAL) IVP ONE (08:30)
[2019-12-05] MEDS ORDERED: ONDANSETRON 4 MG/2 ML (SDV) Z0FRAN IVP PRN (08:30)
--- NOTE | 2019-12-05 09:07 | Anesthesia-General Post-Op ---
General Patient Condition Mental Status/LOC: Same as Preop Cardiovascular: Satisfactory Nausea/Vomiting: Absent Respiratory: Satisfactory Pain: Controlled Complications: Absent Post Op Complications Complications None Follow Up Care/Instructions Patient Instructions None needed. Anesthesia/Patient Condition Patient Condition Patient is doing well, no complaints, stable vital signs, no apparent adverse anesthesia problems. ODILIA ARAUZ DO December 05, 2019 09:07
[2019-12-05] MEDS ORDERED: SULF1TAB35 PO (09:27)
[2019-12-05] MEDS ORDERED: PHEN-640 PO (09:27)
--- NOTE | 2019-12-05 09:37 | OPERATIVE REPORT ---
DATE OF SERVICE: 12/05/2019 PREOPERATIVE DIAGNOSES: Severe urgency with incontinence and overactive bladder. POSTOPERATIVE DIAGNOSES: Severe urgency with incontinence and overactive bladder. OPERATION PERFORMED: Intravesical injection of Botox. SURGEON: Juan Luis Ewing MD. ANESTHESIA: General. COMPLICATIONS: None. DESCRIPTION OF PROCEDURE: Under satisfactory general anesthesia and the patient in lithotomy position, genitalia were prepped and draped in the usual sterile fashion. Cystoscope was introduced under vision and Botox was injected in 20 different spots starting just above and lateral to the ureteral orifices. A total of 100 units was injected. There was minimal bleeding. Bladder was evacuated and the cystoscope was removed. The patient tolerated the procedure and anesthesia well and was sent to recovery room in stable condition. Job ID: [id number] DocumentID: [id number] Dictated Date: 12/05/2019 08:13:37 Pipe Smoking Machine Operator Date: 12/05/2019 09:36:30 Dictated By: JUAN LUIS EWING MD
== END 2019-12-05 10:15 | disposition home or self-care (01) ==
LOC: SDC 06:26
PROVIDERS: ATTEND Urology
DX: N39.41 Urge incontinence (principal); N32.81 Overactive bladder; I25.10 Atherosclerotic heart disease of native coronary artery without angina pectoris; K21.9 Gastro-esophageal reflux disease without esophagitis; I48.91 Unspecified atrial fibrillation; I10 Essential (primary) hypertension; E78.5 Hyperlipidemia, unspecified; E66.01 Morbid (severe) obesity due to excess calories; G47.33 Obstructive sleep apnea (adult) (pediatric); J44.9 Chronic obstructive pulmonary disease, unspecified; F32.9 Major depressive disorder, single episode, unspecified; Z88.0 Allergy status to penicillin; Z91.041 Radiographic dye allergy status; Z95.1 Presence of aortocoronary bypass graft; Z87.891 Personal history of nicotine dependence; Z68.41 Body mass index [BMI] 40.0-44.9, adult; Z88.1 Allergy status to other antibiotic agents; Z79.01 Long term (current) use of anticoagulants; Z90.710 Acquired absence of both cervix and uterus; Z90.49 Acquired absence of other specified parts of digestive tract
CPT/HCPCS: 87081

== ENCOUNTER 2020-01-23 11:54 | Emergency (ER) | payer MEDICARE, OTHER ==
[~2020-01-23] VITALS: Ht 167 cm; Wt 117.0 kg
[~2020-01-23 11:54] MED LIST changes: +PHEN-640 PO; +SULF1TAB35 PO
[2020-01-23 12:25] LABS: BASOPHILS % (AUTO) 0 % (0-10); EOSINOPHILS # (AUTO) 0.1 10^3/uL (0.0-0.3); EOSINOPHILS % (AUTO) 3 % (0-10); HEMATOCRIT 33 % (35-52); HEMOGLOBIN 10.3 G/DL (11.5-16.0); LYMPHOCYTES % (AUTO) 23 % (12-44); MEAN CORPUSCULAR HEMOGLOBIN 25 PG (25-34); MEAN CORPUSCULAR HGB CONC 31 G/DL (32-36); MEAN CORPUSCULAR VOLUME 82 FL (80-99); MEAN PLATELET VOLUME 10.6 FL (7.4-10.4); MONOCYTES # (AUTO) 0.4 X 10^3 (0.0-1.0); MONOCYTES % (AUTO) 10 % (0-12); NEUTROPHILS # (AUTO) 2.8 X 10^3 (1.8-7.8); NEUTROPHILS % (AUTO) 64 % (42-75); PLATELET COUNT 270 10^3/uL (130-400); RED CELL DISTRIBUTION WIDTH 17.6 % (10.0-14.5); WHITE BLOOD COUNT 4.4 10^3/uL (4.3-11.0)
[2020-01-23] MEDS ORDERED: meTOprolol 5 MG/5 ML (LOPRESSOR) VIAL IV ONE (12:30)
[2020-01-23 12:37] LABS: ALBUMIN 3.7 GM/DL (3.2-4.5); POTASSIUM 4.2 MMOL/L (3.6-5.0); PROTHROMBIN TIME PATIENT 22.9 SEC (12.2-14.7)
[2020-01-23 12:38] LABS: CALCIUM 8.3 MG/DL (8.5-10.1)
[2020-01-23 12:39] LABS: TOTAL PROTEIN 6.3 GM/DL (6.4-8.2)
[2020-01-23 12:41] LABS: BILIRUBIN,TOTAL 0.4 MG/DL (0.1-1.0)
[2020-01-23 12:43] LABS: CREATININE SERUM 0.92 MG/DL (0.60-1.30)
[2020-01-23 12:46] LABS: MAGNESIUM 1.9 MG/DL (1.6-2.4)
--- NOTE | 2020-01-23 13:03 | ED Cardiac General ---
History of Present Illness General Chief Complaint: Cardiac/General Problems Stated Complaint: AFIB Nursing Triage Note: Patient brought to ER room 6 by [facility] from home with complaint of increased atrial fibrillation problems. Patient states she has a history of atrial fibrillation and has a cardiac ablasion scheduled on February 07 at this hospital. Patient states over the last few days she has increased shortness of breath with exertion, generalized weakness, and feels that her heart rate is too fast. Patient wears oxygen at home at 3 and 1/2 LPM via NC. Patient is awake and alert. She denies any chest pain. Source: patient Exam Limitations: no limitations History of Present Illness Date Seen by Provider: Jan 23, 2020 Time Seen by Provider: 12:00 Initial Comments To ER with reports of chronic dyspnea on exertion that has gotten a bit worse recently. She has atrial fibrillation. Managed with warfarin and amlodipine. She is scheduled for ablation here with Dr. Chauhan on the of this month. Chronic cough from COPD no change in the characteristics of this,. No fever and no travel history or known exposure to ill contacts Timing/Duration: changing over time Severity: moderate Location: central Activities at Onset: none NTG SL LINEN SORTER: No ASA po LINEN SORTER: No Associated Systoms: Shortness of Air Allergies and Home Medications Allergies Coded Allergies: Iodinated Contrast Media (Unverified Allergy, Mild, NAUSEA, 11/28/19) Pt states it's the IV dye used in heart tests not CT scans penicillin G (Verified Allergy, Mild, RASH, 11/28/19) RASH Home Medications Albuterol Sulfate 1 Puff Puff, 2 PUFF INH Q4H PRN for SHORTNESS OF BREATH, (Reported) Amlodipine Besylate 5 Mg Tablet, 5 MG PO DAILY, (Reported) Atorvastatin Calcium 40 Mg Tablet, 40 MG PO DAILY, (Reported) Cholecalciferol (Vitamin D3) 50 Mcg Capsule, 50 MCG PO DAILY, (Reported) Fluticasone/Salmeterol 1 Each Blst.w.dev, 1 EACH IH BID, (Reported) Furosemide 20 Mg Tablet, 20 MG PO DAILY, (Reported) LAST FILLED 03-09-2019 #120 Gabapentin 100 Mg Capsule, 100 MG PO Q8H PRN for NERVE PAIN, (Reported) Metoprolol Tartrate 25 Mg Tablet, 25 MG PO BID Prescribed by: SHEILA NARAYANAN on 01/23/20 1336 Omeprazole 20 Mg Capsule.dr, 20 MG PO HS, (Reported) Paroxetine HCl 40 Mg Tablet, 40 MG PO DAILY, (Reported) Phenazopyridine HCl 200 Mg Tablet, 1 TAB PO TID PRN for SPASMS Prescribed by: FIOR ANDERSON on 12/05/19926 Potassium Chloride 10 Meq Tab.er.prt, 10 MEQ PO DAILY, (Reported) Sulfamethoxazole/Trimethoprim 1 Each Tablet, 1 EACH PO BID Prescribed by: FIOR ANDERSON on 12/05/19926 Terazosin HCl 5 Mg Capsule, 5 MG PO DAILY, (Reported) Trazodone HCl 50 Mg Tablet, 50 MG PO DAILY, (Reported) Valsartan 160 Mg Tablet, 160 MG PO DAILY, (Reported) Zolpidem Tartrate 10 Mg Tablet, 10 MG PO HS, (Reported) Patient Home Medication List Home Medication List Reviewed: Yes Review of Systems Review of Systems Constitutional: see HPI EENTM: No Symptoms Reported Respiratory: No Symptoms Reported Gastrointestinal: See HPI, Abdominal Pain Genitourinary: No Symptoms Reported Musculoskeletal: no symptoms reported Skin: no symptoms reported Psychiatric/Neurological: No Symptoms Reported Endocrine: No Symptoms Reported Hematologic/Lymphatic: No Symptoms Reported Past Rjfdqfa-Lydkhf-Ujjbdo Hx Patient Social History Alcohol Use: Denies Use Recreational Drug Use: No Smoking Status: Former Smoker Type Used: Cigarettes Former Smoker, Quit: Aug 14, 1990 2nd Hand Smoke Exposure: No Recent Foreign Travel: No Contact w/Someone Who Travel: No Recent Infectious Disease Expo: No Recent Hopitalizations: No Physical Abuse: No Sexual Abuse: No Mistreated: No Fear: No Immunizations Up To Date Tetanus Booster (TDap): Unknown PED Vaccines UTD: No Date of Pneumonia Vaccine: Mar 23, 2017 Date of Influenza Vaccine: Apr 25, 2019 Seasonal Allergies Seasonal Allergies: No Past Medical History Surgeries: Yes (HERNIA REPAIR; EGD; VIANCA/CARDIOVERSION, CATARACT, cardiac bypass 2003) Cardiac, CABG, Gallbladder, Hysterectomy Respiratory: Yes (O2 3L ) Asthma, COPD Currently Using CPAP: No Currently Using BIPAP: No Cardiac: Yes Atrial Fibrillation, Coronary Artery Disease, High Cholesterol, Hypertension Neurological: No Reproductive Disorders: No Female Reproductive Disorders: Denies Sexually Transmitted Disease: No HIV/AIDS: No Genitourinary: Yes (URGENCY) UTI-Chronic Gastrointestinal: Yes Gastroesophageal Reflux Musculoskeletal: Yes (hx fx left wrist, lower back disc ) Degenerate Disk Disease, Arthritis, Chronic Back Pain Endocrine: No HEENT: Yes (GLASSES, DENTURES) Cataract Loss of Vision: Denies Hearing Impairment: Hard of Hearing Cancer: No Psychosocial: Yes Anxiety, Depression Integumentary: No Blood Disorders: No Adverse Reaction/Blood Tranf: No (N/A) Family Medical History Arthritis Cardiovascular disease 19 FATHER 19 MOTHER G8 BROTHER FH: HI (myocardial infarction) 19 FATHER ( at 67 from HI) 19 MOTHER ( at 39 from HI) Hypertension CAD Over 55 Years Old Physical Exam Vital Signs Vital Signs - First Documented 01/23/20 11:54 Temp 37.1 Pulse 109 Resp 20 B/P (MAP) 140/70 (93) Pulse Ox 3 O2 Delivery Nasal Cannula O2 Flow Rate 3.00 Capillary Refill : Less Than 3 Seconds Height, Weight, BMI Height: 5'6.00" Weight: 254lbs. 0.0oz. 115.339006tr; 41.00 BMI Method:Stated General Appearance: No Apparent Distress, WD/WN, Obese Neck: Full Range of Motion, Normal Inspection Respiratory: Normal Breath Sounds, No Accessory Muscle Use, No Respiratory Distress Cardiovascular: Irregularly Irregular (tachycardic with a rate of about 110 to 130) Gastrointestinal: Normal Bowel Sounds, Non Tender, Soft Extremity: Normal Capillary Refill, Normal Inspection Neurologic/Psychiatric: Alert, Oriented x3 Skin: Normal Color, Warm/Dry Progress/Results/Core Measures Results/Orders Lab Results Laboratory Tests Test 01/23/20 12:02 Range/Units White Blood Count 4.4 4.3-11.0 10^3/uL Red Blood Count 4.06 L 4.35-5.85 10^6/uL Hemoglobin 10.3 L 11.5-16.0 G/DL Hematocrit 33 L 35-52 % Mean Corpuscular Volume 82 80-99 FL Mean Corpuscular Hemoglobin 25 25-34 PG Mean Corpuscular Hemoglobin Concent 31 L 32-36 G/DL Red Cell Distribution Width 17.6 H 10.0-14.5 % Platelet Count 270 130-400 10^3/uL Mean Platelet Volume 10.6 H 7.4-10.4 FL Neutrophils (%) (Auto) 64 42-75 % Lymphocytes (%) (Auto) 23 12-44 % Monocytes (%) (Auto) 10 0-12 % Eosinophils (%) (Auto) 3 0-10 % Basophils (%) (Auto) 0 0-10 % Neutrophils # (Auto) 2.8 1.8-7.8 X 10^3 Lymphocytes # (Auto) 1.0 1.0-4.0 X 10^3 Monocytes # (Auto) 0.4 0.0-1.0 X 10^3 Eosinophils # (Auto) 0.1 0.0-0.3 10^3/uL Basophils # (Auto) 0.0 0.0-0.1 10^3/uL Prothrombin Time 22.9 H 12.2-14.7 SEC INR Comment 2.0 H 0.8-1.4 Activated Partial Thromboplast Time 32 24-35 SEC Sodium Level 142 135-145 MMOL/L Potassium Level 4.2 3.6-5.0 MMOL/L Chloride Level 108 H 98-107 MMOL/L Carbon Dioxide Level 26 21-32 MMOL/L Anion Gap 8 5-14 MMOL/L Blood Urea Nitrogen 11 7-18 MG/DL Creatinine 0.92 0.60-1.30 MG/DL Estimat Glomerular Filtration Rate 60 BUN/Creatinine Ratio 12 Glucose Level 97 70-105 MG/DL Calcium Level 8.3 L 8.5-10.1 MG/DL Corrected Calcium 8.5 8.5-10.1 MG/DL Magnesium Level 1.9 1.6-2.4 MG/DL Total Bilirubin 0.4 0.1-1.0 MG/DL Aspartate Amino Transf (AST/SGOT) 14 5-34 U/L Alanine Aminotransferase (ALT/SGPT) 9 0-55 U/L Alkaline Phosphatase 80 40-136 U/L Myoglobin 41.9 10.0-92.0 NG/ML Troponin I < 0.028 <0.028 NG/ML B-Type Natriuretic Peptide 223.9 H <100.0 PG/ML Total Protein 6.3 L 6.4-8.2 GM/DL Albumin 3.7 3.2-4.5 GM/DL My Orders Orders - SHEILA NARAYANAN TRAVELING AUDITOR Cbc With Automated Diff (01/23/20 12:19) Magnesium (01/23/20 12:19) Chest 1 View, Ap/Pa Only (01/23/20 12:19) Ekg Tracing (01/23/20 12:19) Comprehensive Metabolic Panel (01/23/20 12:19) Myoglobin Serum (01/23/20 12:19) Protime With Inr (01/23/20 12:19) Partial Thromboplastin Time (01/23/20 12:19) O2 (01/23/20 12:19) Monitor-Rhythm Ecg Trace Only (01/23/20 12:19) Lipid Panel (01/24/20 06:00) Ed Iv/Invasive Line Start (01/23/20 12:19) BNP (01/23/20 12:19) Troponin I (01/23/20 12:19) Metoprolol Tartrate Injection (Lopressor (01/23/20 12:30) Medications Given in ED Current Medications Medications Dose Ordered Sig/Dominique Route Start Time Stop Time Status Last Admin Dose Admin Metoprolol Tartrate 5 mg ONCE ONCE IV 01/23/20 12:30 01/23/20 12:31 DC 01/23/20 12:30 5 MG Vital Signs/I&O 01/23/20 01/23/20 11:54 11:54 Temp 37.1 Pulse 109 Resp 20 B/P (MAP) 140/70 (93) Pulse Ox 3 99 O2 Delivery Nasal Cannula Nasal Cannula O2 Flow Rate 3.00 Blood Pressure Mean: 93 Departure Impression Primary Impression: A-fib Disposition: 01 HOME, SELF-CARE Condition: Stable Departure-Patient Inst. Decision time for Depature: 13:08 Referrals: BIBIANA KAPADIA MD (PCP) Primary Care Physician TONYA GLORIA (Family) Primary Care Physician Patient Instructions: Atrial Fibrillation (DC) Add. Discharge Instructions: 1. Add the new medication called metoprolol once daily. Follow up with Dr. Cahuhan. Return to ER for any concerns. All discharge instructions reviewed with patient and/or family. Voiced understanding. Scripts Metoprolol Tartrate (Metoprolol Tartrate) 25 Mg Tablet 25 MG PO BID, #60 TAB Prov: SHEILA NARAYANAN APRN 01/23/20 SHEILA NARAYANAN APRN Jan 23, 2020 13:03
--- NOTE | 2020-01-23 13:04 | Diagnostic Imaging Report ---
INDICATION: Atrial fibrillation COMPARISON: 05/29/2019 TECHNIQUE: Single radiograph of the chest dated 01/23/2020. FINDINGS: Postsurgical changes of a CABG. The cardiac silhouette is mildly enlarged, appearing more prominent than the prior examination, though a component of this may be technical in nature. Mild central pulmonary vascular congestion. Decreased lung volumes when compared to the prior examination with increasing bibasilar interstitial opacities. No large volume pleural effusion. No pneumothorax. No acute osseous abnormality. IMPRESSION: Decreased lung volumes with increasing bibasilar atelectasis and/or pneumonitis. Mild cardiomegaly with associated minimal pulmonary vascular congestion. No significant interstitial edema. Cardiac silhouette does appear more prominent than the prior exam. Dictated by: Dictated on workstation # [id number]
[2020-01-23] MEDS ORDERED: METO-351 PO (13:09)
--- OUTSIDE RECORDS SUMMARY | 2020-01-23 13:28 | XMS REPORT | Clinical Summary ---
Author Author [facility] Organization [facility] Address Unknown Phone Unavailable Care Team Providers Care Water/Wastewater Project Manager Name Role Phone Scarlett Spring MD PCP Source Comments Some departments are not documenting in the electronic medical record. If you d o not see the information that you expected, contact Release of Information in [facility] [employer] Information Management department at [phone] for further assistan ce in locating additional records.[facility] Allergies Comments Active Allergy Reactions Severity Noted Date Iodinated Contrast Media NAUSEA AND Low 04/22 VOMITING Penicillins RASH Medium 04/22/2017 Medications End [...] Overview: ECHO 03/09/17 EF 60-65%, LA mildly dilat ed CAD (coronary artery disease) 05/06/2017 Overview: 2004: [...] 07/26/1990 Former Smoker Smokeless Tobacco: Never Used Drinks/Week oz/Week Comments Alcohol Use No Sex Assigned at Date Recorded Not on file Industry Job Start Date Occupation Not on file Not on file Not on file Travel End Travel History Travel Start No recent travel history available. 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 HELPER Blood Pressure 55 07/08/2017 12:58 PM DYE REEL OPERATOR HELPER Pulse - - Temperature - - Respiratory Rate 93% 06/01/2017 12:40 PM DYE REEL OPERATOR HELPER Oxygen Saturation - - Inhaled Oxygen Concentration 121.6 kg (268 lb) 07/08/2017 12:58 PM DYE REEL OPERATOR HELPER Weight 167.6 cm (5' 5.98") 07/08/2017 12:58 PM DYE REEL OPERATOR HELPER Height 43.28 07/08/2017 12:58 PM DYE REEL OPERATOR HELPER Body Mass Index Plan of Treatment Health Maintenance Due Date Last Done Comments MEDICARE ANNUAL WELLNESS 1945 VISIT DTAP/TDAP VACCINES (1 - 1963 Tdap) HEPATITIS C SCREENING 1963 PHYSICAL (COMPREHENSIVE) 1963 EXAM BREAST CANCER SCREENING 1985 COLORECTAL CANCER 1995 SCREENING SHINGLES RECOMBINANT 1995 VACCINE (1 of 2) OSTEOPOROSIS 2010 SCREENING/MONITORING PNEUMONIA (PPSV23) 2010 VACCINE (1 of 1 - PPSV23) INFLUENZA VACCINE 04/25/2020 Results Not on filefrom Last 3 Months Insurance Type Payer Benefit Subscriber ID Effective Phone Address Plan / Dates Group Medicare MEDICARE MEDICARE xxxxxxxxxx 2010- PART A AND Present B Indemnity GENERIC COMMERCIAL GENERIC xxxxxxxxxxxx 2010- COMMERCIAL Present ([place]) [place] [address] Advance Directives Patient Roller 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
[2020-01-23] MEDS ORDERED: METO-333 PO (13:36)
--- OUTSIDE RECORDS SUMMARY | 2020-01-23 13:41 | XMS REPORT | CCD ---
Author Author Jeannine Spring Organization Scarlett Spring MD, [facility] Address [address] [place] [address] Phone Care Team Providers Care Clinical Data Coordinator Name Role Phone PP Unavailable CCM Unavailable Summary Purpose Interface Exchange Insurance Providers Payer name Policy type / Coverage type Covered democrat ID Effective Begin Date Effective End Date WPS Medicare Part B Medicare Part B [id number] Unknown L[email or web address] Medicare Part B [id number] Unkn own Family history Mother Diagnosis Age At Onset Hypertension Unknown Heart Attack Unknown Brother Diagnosis Age At Onset Heart disease Unknown Runs in the family Diagnosis Age At Onset Heart disease Unknown Daughter Diagnosis Age At Onset Heart Attack Unknown Hyperlipidemia Unknown Hypertension Unknown Social History Social History Element Codes Description Effective Dates Number of children Unknown 2 daughter lives in [place], son - does not have contact 09/16/[address]: 4160430 Quit over 10 years ago 1990 - previously smoked 2ppd x 25 years. 11/18/2015 Marital status Unknown W idowed in 201003/06/2015 Employment Unknown Retir ed was a [employer] 03/06/2015 Allergies, Adverse Reactions, Alerts Substance Reaction Codes Entered Date Inactivated Date Status * NO KNOWN FOOD MYRNA RGIES Unknown 03/06/2015 No Inactive Date Active Iodine RxNorm: 5933 03/06/2015 No Inactive Date Active Penicillin Unknown 03/06/2015 No In active Date Active Past Medical History Illness Codes Condition Status Onset Date Resolved Date Localized edema ICD-9: 782.3 ICD-10: R60.0 Active 09/29/2015 Unknown Pain in right knee ICD- 9: 719.46 ICD-10: M25.561 Active 03/09/2019 Unknown Urinary tract infect ion, site not specified ICD-9: 599.0 ICD-10: N39.0 Active 02/23/2019 Unknown Lumbago with sciatic a, right side ICD-9: 724.3 ICD-10: M54.41 Active 01/31/2019 Unknown Sciatica Unknown Active 01/31/2019 Unknow n Dysuria ICD-9: 788.1 ICD-10: R30.0 Active 09/29/2015 Unknown Paroxysmal atrial fi brillation ICD-9: 427.31 ICD-10: I48.0 Active 02/02/2017 Unknown Chronic atrial fibri llation ICD-9: 427.31 ICD-10: I48.2 Active 08/23/2017 Unknown Essential (primary) hypertension ICD-9: 401.1 ICD-10: I10 Active 12/16/2017 Unknown Low back pain ICD-9: 724.2 ICD-10: M54.5 Active 10/07/2016 Unknown Vitamin D deficiency , unspecified ICD-9: 268.9 ICD-10: E55.9 Active 01/12/2019 Unknown Cellulitis of abdomi nal wall ICD-9: 682.2 ICD-10: L03.311 Active 12/06/2018 Unknown Major depressive dis order, recurrent, moderate ICD-9: 296.32 ICD-10: F33.1 Active 10/07/2016 Unknown Chest pain, unspecified ICD-9: 786.50 ICD-10: R07.9 Active 10/25/2018 Unknown Diarrhea, unspecified ICD-9: 787.91 ICD-10: R19.7 Active 10/25/2018 Unknown Eructation ICD-9: 787.3 ICD-10: R14.2 Active 10/25/2018 Unknown Nausea ICD-9: 787.02 ICD-10: R11.0 Active 09/29/2015 Unknown Essential (primary) hypertension ICD-9: 401.9 ICD-10: I10 Active 03/05/2015 Unknown Cough ICD-9: 786.2 ICD-10: R05 Active 11/26/2016 Unknown Encounter for immuni zation ICD-9: V03.9 ICD-10: Z23 Active 04/07/2016 Unknown Major depressive dis order, recurrent, 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-10: F33.0 Active 09/16/2016 Unknown Encounter for genera l adult medical examination with abnormal findings ICD-9: V70.0 ICD-10: Z00.01 Active 02/03/2017 Unknown Obstructive sleep ap marc (adult) (pediatric) ICD-9: 327.23 ICD-10: G47.33 Active 12/16/2017 Unknown Acute laryngopharyng itis ICD-9: 465.0 ICD-10: J06.0 Active 11/26/2016 Unknown Other dorsalgia ICD-9: 724.5 ICD-10: M54.89 Active 03/05/2015 Unknown Pleurodynia ICD-9: 786.50 ICD-10: R07.81 Active 11/26/2016 Unknown Pain in left knee ICD-9: 719.46 ICD-10: M25.562 Active 09/07/2016 Unknown Rash and other nonsp ecific skin eruption ICD-9: 782.1 ICD-10: R21 Active 08/27/2015 Unknown Pain in left lower leg ICD-9: 729.5 ICD-10: M79.662 Active 09/07/2016 Unknown Mixed hyperlipidemia ICD-9: 272.2 ICD-10: E78.2 Active 04/07/2016 Unknown Shortness of breath ICD- 9: 786.05 ICD-10: R06.02 Active 03/04/2016 Unknown Chronic obstructive pulmonary disease, unspecified ICD-9: 491.20 ICD-10: J44.9 Active 12/03/2015 Unknown Allergic rhinitis du e to pollen ICD-9: 477.0 ICD-10: J30.1 Active 11/17/2015 Unknown Methicillin suscepti ble Staphylococcus aureus infection as the cause of diseases classified elsewhere ICD-9: 041.11 ICD-10: B95.61 Active 09/08/2015 Unknown Methicillin suscepti ble Staphylococcus aureus infection, unspecified site ICD-9: 041.11 ICD-10: A49.01 Active 09/08/2015 Unknown Dermatophytosis, uns pecified ICD-9: 110.9 ICD-10: B35.9 Active 08/27/2015 Unknown Gastro-esophageal re flux disease without esophagitis ICD-9: 530.81 ICD-10: K21.9 Active 03/05/2015 Unknown Back pain ICD-9: 724.5 Active 03/05/2015 Unknow n ESOPHAGEAL REFLUX ICD-9: 530.81 Active 03/05/2015 Unknown ESSENTIAL HYPERTENSION ICD-9: 401.9 Active 03/05/2015 Unknown Insomnia ICD-9: 780.52 Active 03/05/2015 Unknow n Osteoporosis ICD-9: 733.00 Active 03/05/2015 Unknown Aneursym Unknown Active 01/18/2015 Unknow n carotid stenosis Unknown Active 01/18/2015 Unknow n Heart disease Unknown Active 01/18/2015 Unknow n Hyperlipidemia Unknown Active 01/18/2015 Unknow n Hypertension Unknown Active 01/18/2015 Unknow n Problems Condition Codes Effectiv e Dates Condition Status Localized edema ICD-9: 782.3 ICD-10: R60.0 09/29/2015 Active Pain in right knee ICD- 9: 719.46 ICD-10: M25.561 03/09/2019 Active Urinary tract infect ion, site not specified ICD-9: 599.0 ICD-10: N39.0 02/23/2019 Active Lumbago with sciatic a, right side ICD-9: 724.3 ICD-10: M54.41 01/31/2019 Active Sciatica Unknown 01/31/2019 Active Dysuria ICD-9: 788.1 ICD-10: R30.0 09/29/2015 Active Paroxysmal atrial fi brillation ICD-9: 427.31 ICD-10: I48.0 02/02/2017 Active Chronic atrial fibri llation ICD-9: 427.31 ICD-10: I48.2 08/23/2017 Active Essential (primary) hypertension ICD-9: 401.1 ICD-10: I10 12/16/2017 Active Low back pain ICD-9: 724.2 ICD-10: M54.5 10/07/2016 Active Vitamin D deficiency , unspecified ICD-9: 268.9 ICD-10: E55.9 01/12/2019 Active Cellulitis of abdomi nal wall ICD-9: 682.2 ICD-10: L03.311 12/06/2018 Active Major depressive dis order, recurrent, moderate ICD-9: 296.32 ICD-10: F33.1 10/07/2016 Active Chest pain, unspecified ICD-9: 786.50 ICD-10: R07.9 10/25/2018 Active Diarrhea, unspecified ICD-9: 787.91 ICD-10: R19.7 10/25/2018 Active Eructation ICD-9: 787.3 ICD-10: R14.2 10/25/2018 Active Nausea ICD-9: 787.02 ICD-10: R11.0 09/29/2015 Active Essential (primary) hypertension ICD-9: 401.9 ICD-10: I10 03/05/2015 Active Cough ICD-9: 786.2 ICD-10: R05 11/26/2016 Active Encounter for immuni zation ICD-9: V03.9 ICD-10: Z23 04/07/2016 Active Major depressive dis order, recurrent, 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-10: F33.0 09/16/2016 Active Encounter for genera l adult medical examination with abnormal findings ICD-9: V70.0 ICD-10: Z00.01 02/03/2017 Active Obstructive sleep ap marc (adult) (pediatric) ICD-9: 327.23 ICD-10: G47.33 12/16/2017 Active Acute laryngopharyng itis ICD-9: 465.0 ICD-10: J06.0 11/26/2016 Active Other dorsalgia ICD-9: 724.5 ICD-10: M54.89 03/05/2015 Active Pleurodynia ICD-9: 786.50 ICD-10: R07.81 11/26/2016 Active Pain in left knee ICD-9: 719.46 ICD-10: M25.562 09/07/2016 Active Rash and other nonsp ecific skin eruption ICD-9: 782.1 ICD-10: R21 08/27/2015 Active Pain in left lower leg ICD-9: 729.5 ICD-10: M79.662 09/07/2016 Active Mixed hyperlipidemia ICD-9: 272.2 ICD-10: E78.2 04/07/2016 Active Shortness of breath ICD- 9: 786.05 ICD-10: R06.02 03/04/2016 Active Chronic obstructive pulmonary disease, unspecified ICD-9: 491.20 ICD-10: J44.9 12/03/2015 Active Allergic rhinitis du e to pollen ICD-9: 477.0 ICD-10: J30.1 11/17/2015 Active Methicillin suscepti ble Staphylococcus aureus infection as the cause of diseases classified elsewhere ICD-9: 041.11 ICD-10: B95.61 09/08/2015 Active Methicillin suscepti ble Staphylococcus aureus infection, unspecified site ICD-9: 041.11 ICD-10: A49.01 09/08/2015 Active Dermatophytosis, uns pecified ICD-9: 110.9 ICD-10: B35.9 08/27/2015 Active Gastro-esophageal re flux disease without esophagitis ICD-9: 530.81 ICD-10: K21.9 03/05/2015 Active Back pain ICD-9: 724.5 03/05/2015 Active ESOPHAGEAL REFLUX ICD-9: 530.81 03/05/2015 Active ESSENTIAL HYPERTENSION ICD-9: 401.9 03/05/2015 Active Insomnia ICD-9: 780.52 03/05/2015 Active Osteoporosis ICD-9: 733.00 03/05/2015 Active Aneursym Unknown 01/18/2015 Active carotid stenosis Unknown 01/18/2015 Active Heart disease Unknown 01/18/2015 Active Hyperlipidemia Unknown 01/18/2015 Active Hypertension Unknown 01/18/2015 Active Medications Medication Codes Instruc tions Start Date Stop Date Sta tus Fill Instructions omeprazole 20 mg cap marina,delayed release RxNorm: 985426 Capsule(s) TAKE ONE C APSULE BY MOUTH EVERY NIGHT AT BEDTIME 03/13/2019 03/06/2020 Active Lasix 20 mg tablet RxNorm: 790755 2 Tablet(s) PO BID 03/09/2019 07/06/2019 Active 2 q am and 2 q noon terazosin 5 mg capsule RxNorm: 373435 TAKE ONE CAPSULE BY MOUTH DAILY 02/27/2019 06/26/2019 Ac tive potassium chloride E R 10 mEq tablet,extended release RxNorm: 126034 2 Tablet(s) PO daily 02/23/2019 06/22/2019 Active 3 daily x 5 days then 2 jignesh y thereafter Lasix 20 mg tablet RxNorm: 007313 2 Tablet(s) PO daily 02/23/2019 03/08/2019 Inactive take 3 daily x 5 days then 2 tab daily t herafter Cipro 500 mg tablet RxNorm: 793114 1 Tablet(s) PO BID 02/23/2019 03/01/2019 Inactive doxycycline hyclate 100 mg tablet,delayed release RxNorm: 813210 1 Tablet(s) PO BID 02/03/2019 02/02/2019 In active doxycycline hyclate 100 mg tablet,delayed release RxNorm: 253093 1 Tablet(s) PO BID an d probiotic bid 02/03/2019 02/09/2019 Inactive may use capsule if cheaper gabapentin 100 mg ca psule RxNorm: 954180 1 Capsule(s) PO TID 01/31/2019 04/30/2019 Active Ambien 10 mg tablet RxNorm: 795837 Tablet(s) TAKE ONE TABLET BY MOUTH AT BE DTIME NEEDED 01/20/2019 05/19/2019 Active Vitamin D2 50,000 un it capsule RxNorm: 1218993 1 Capsule(s) PO QW 01/18/2019 03/18/2019 Inactive Ambien 10 mg tablet RxNorm: 500944 Tablet(s) TAKE ONE TABLET BY MOUTH AT BE DTIME NEEDED 12/21/2018 04/18/2019 Active mupirocin 2 % topica l ointment RxNorm: 985941 1 Application TOP BID 12/06/2018 12/19/2018 Inactive doxycycline hyclate 100 mg tablet RxNorm: 2216508 1 Tablet(s) PO BID 11/21/2018 11/27/2018 Inactive can exchange for capsule if cheaper doxycycline hyclate 100 mg tablet RxNorm: 0495791 1 Tablet(s) PO BID 11/21/2018 11/20/2018 Inactive simethicone 125 mg c hewable tablet RxNorm: 643707 1 Tablet(s) PO qid pr n 10/25/2018 No Stop Date Active promethazine 25 mg t ablet RxNorm: 903066 1 Tablet(s) PO Q6 PRN 10/25/2018 No Stop Date Active paroxetine 40 mg tablet RxNorm: 3440011 1 Tablet(s) PO daily 10/13/2018 04/10/2019 Active valsartan 160 mg tablet RxNorm: 675523 1 Tablet(s) PO daily 10/13/2018 04/10/2019 Active trazodone 50 mg tablet RxNorm: 419111 TAKE ONE TABLET BY MOUTH DAILY 09/23/2018 03/21/2019 Ac tive Ambien 10 mg tablet RxNorm: 345880 TAKE ONE TABLET BY MOUTH AT BEDTIME N EEDED 09/23/2018 11/20/2018 Inactive terazosin 5 mg capsule RxNorm: 751408 TAKE ONE CAPSULE BY MOUTH DAILY 09/23/2018 02/19/2019 In active losartan 50 mg tablet RxNorm: 152176 1 Tablet(s) PO daily 09/15/2018 10/12/2018 Inactive omeprazole 20 mg cap marina,delayed release RxNorm: 934484 TAKE ONE CAPSULE BY M OUTH EVERY NIGHT AT BEDTIME 09/12/2018 03/10/2019 Inactive Keflex 500 mg capsule RxNorm: 370435 1 Capsule(s) PO TID 08/18/2018 08/17/2018 Inactive Keflex 500 mg capsule RxNorm: 818359 1 Capsule(s) PO TID 08/18/2018 08/24/2018 Inactive take probiotic while on abx paroxetine 20 mg tablet RxNorm: 6035436 TAKE ONE TABLET BY MOUTH DAILY 08/12/2018 10/12/2018 In active losartan 25 mg tablet RxNorm: 328922 1 Tablet(s) PO daily 08/01/2018 09/14/2018 Inactive losartan 25 mg tablet RxNorm: 251434 1 Tablet(s) PO daily 08/01/2018 10/12/2018 Inactive trazodone 50 mg tablet RxNorm: 229724 TAKE ONE TABLET BY MOUTH DAILY 07/25/2018 09/22/2018 In active Ambien 10 mg tablet RxNorm: 743258 Tablet(s) TAKE ONE TABLET BY MOUTH AT BE DTIME 06/24/2018 09/23/2018 Inactive trazodone 50 mg tablet RxNorm: 398112 TAKE ONE TABLET BY MOUTH DAILY 04/25/2018 07/23/2018 In active Ambien 10 mg tablet RxNorm: 393751 Tablet(s) TAKE ONE TABLET BY MOUTH AT BE DTIME 03/23/2018 06/19/2018 Inactive terazosin 5 mg capsule RxNorm: 367325 TAKE ONE CAPSULE BY MOUTH DAILY 03/14/2018 09/09/2018 In active Ambien 10 mg tablet RxNorm: 225513 Tablet(s) TAKE ONE TABLET BY MOUTH AT BE DTIME 01/18/2018 09/14/2018 Inactive trazodone 50 mg tablet RxNorm: 943329 TAKE ONE TABLET BY MOUTH ONCE DAILY 01/10/2018 03/22/2018 In active trazodone 50 mg tablet RxNorm: 845618 Tablet(s) TAKE ONE TABLET BY MOUTH ONCE DAILY 01/10/2018 04/24/2018 Inactive Ambien 10 mg tablet RxNorm: 507397 Tablet(s) TAKE ONE TABLET BY MOUTH AT BE DTIME 10/22/2017 01/17/2018 Inactive trazodone 50 mg tablet RxNorm: 607954 TAKE ONE TABLET BY MOUTH ONCE DAILY 10/18/2017 01/09/2018 In active omeprazole 20 mg cap marina,delayed release RxNorm: 188693 TAKE ONE CAPSULE BY M OUTH ONCE DAILY AT BEDTIME 08/27/2017 09/11/2018 Inactive trazodone 50 mg tablet RxNorm: 843621 TAKE ONE TABLET BY MOUTH ONCE DAILY 08/18/2017 10/17/2017 In active Ambien 10 mg tablet RxNorm: 185287 Tablet(s) TAKE ONE TABLET BY MOUTH AT BE [facility] 08/18/2017 03/22/2018 Inactive paroxetine 20 mg tablet RxNorm: 9191773 TAKE ONE TABLET BY MOUTH ONCE DAILY 07/27/2017 08/11/2018 In active Ambien 10 mg tablet RxNorm: 922944 Tablet(s) TAKE ONE TABLET BY MOUTH AT [facility] 06/23/2017 03/22/2018 Inactive omeprazole 20 mg cap marina,delayed release RxNorm: 905238 TAKE ONE CAPSULE BY M OUTH ONCE DAILY AT BEDTIME 04/23/2017 08/20/2017 Inactive trazodone 50 mg tablet RxNorm: 176458 TAKE ONE TABLET BY MOUTH ONCE DAILY 04/13/2017 08/10/2017 In active terazosin 5 mg capsule RxNorm: 127414 Capsule(s) TAKE ONE CAPSULE BY MOUTH [facility] 04/08/2017 03/03/2018 In active Ambien 10 mg tablet RxNorm: 192241 Tablet(s) TAKE ONE TABLET BY MOUTH AT [facility] 02/17/2017 03/22/2018 Inactive Tylenol-Codeine #3 3 00 mg-30 mg tablet RxNorm: 224596 1 Tablet(s) PO QID as needed 02/02/2017 11/14/2018 In active metoprolol succinate ER 50 mg tablet,extended release 24 hr RxNorm: 206896 TAKE ONE TABLET BY MOUTH ONCE DAILY 12/23/2016 02/02/2017 Inactive Zithromax Z-Ted 250 mg tablet RxNorm: 066468 1 Tablet(s) PO UD 11/26/2016 02/16/2017 Inactive trazodone 50 mg tablet RxNorm: 330568 TAKE ONE TABLET BY MOUTH ONCE DAILY 11/12/2016 03/11/2017 In active Ambien 10 mg tablet RxNorm: 111057 Tablet(s) TAKE ONE TABLET BY MOUTH AT BE DTIME 10/22/2016 02/15/2017 Inactive paroxetine 20 mg tablet RxNorm: 2258401 1 Tablet(s) PO daily TAKE ONE TABLET BY MOUTH DAILY 09/16/2016 06/12/2017 Inactive meloxicam 7.5 mg tablet RxNorm: 572297 1 Tablet(s) PO daily 09/16/2016 11/14/2016 Inactive Protonix 40 mg table t,delayed release RxNorm: 778414 1 Tablet(s) PO daily 09/16/2016 08/22/2017 In active sucralfate 1 gram ta blet RxNorm: 437997 1 Tablet(s) PO TID 09/16/2016 08/22/2017 Inactive Ambien 10 mg tablet RxNorm: 600163 Tablet(s) TAKE ONE TABLET BY MOUTH AT BE DTINJ 08/24/2016 03/22/2018 Inactive trazodone 50 mg tablet RxNorm: 498262 Tablet(s) TAKE ONE TABLET BY MOUTH DAILY 07/29/2016 11/11/2016 In active Ambien 10 mg tablet RxNorm: 347004 TAKE ONE TABLET BY MOUTH AT BEDTIME 06/23/2016 03/22/2018 In active Ambien 10 mg tablet RxNorm: 073713 Tablet(s) TAKE ONE TABLET BY MOUTH EVERY NIGHT AT BEDTIME 06/22/2016 06/23/2016 Inactive Lasix 40 mg tablet RxNorm: 004612 1 Tablet(s) PO daily as needed for swell ing 04/03/2016 09/15/2016 In active potassium chloride E R 20 mEq tablet,extended release RxNorm: 518580 1 Tablet(s) PO daily for swelling take with lasix as needed 04/03/2016 09/15/2016 Inactive Ambien 10 mg tablet RxNorm: 773786 Tablet(s) TAKE ONE TABLET BY MOUTH EVERY NIGHT AT BEDTIME 04/03/2016 03/22/2018 Inactive omeprazole 20 mg cap marina,delayed release RxNorm: 474623 TAKE ONE CAPSULE BY M OUTH EVERY NIGHT AT BEDTIME 03/31/2016 09/15/2016 Inactive paroxetine 20 mg tablet RxNorm: 7250191 TAKE ONE TABLET BY MOUTH DAILY 03/31/2016 09/15/2016 In active trazodone 50 mg tablet RxNorm: 221298 TAKE ONE TABLET BY MOUTH DAILY 03/20/2016 07/28/2016 In active terazosin 5 mg capsule RxNorm: 765774 TAKE ONE CAPSULE BY MOUTH DAILY 03/06/2016 10/06/2016 In active Ambien 10 mg tablet RxNorm: 189676 Tablet(s) TAKE ONE TABLET BY MOUTH EVERY NIGHT AT BEDTIME 01/17/2016 04/02/2016 Inactive loratadine 10 mg tablet RxNorm: 091314 1 Tablet(s) PO daily 01/15/2016 09/15/2016 Inactive mupirocin 2 % topica l ointment RxNorm: 577383 1 Application TOP TID 11/18/2015 12/01/2015 Inactive metoprolol succinate ER 50 mg tablet,extended release 24 hr RxNorm: 044830 1 Tablet(s) PO daily 11/18/2015 11/11/2016 Inactive loratadine 10 mg tablet RxNorm: 667431 1 Tablet(s) PO daily 11/18/2015 01/14/2016 Inactive Lasix 40 mg tablet RxNorm: 383540 1 Tablet(s) PO daily as needed for swell ing 10/30/2015 11/28/2015 In active potassium chloride E R 20 mEq tablet,extended release RxNorm: 126605 1 Tablet(s) PO daily for swelling take with lasix as needed 10/30/2015 11/28/2015 Inactive Tylenol-Codeine #3 3 00 mg-30 mg tablet RxNorm: 333651 1 Tablet(s) PO QID as needed 10/25/2015 02/01/2017 In active Ambien 10 mg tablet RxNorm: 481402 Tablet(s) TAKE ONE TABLET BY MOUTH EVERY NIGHT AT BEDTIME 10/18/2015 03/22/2018 Inactive Diflucan 150 mg tablet RxNorm: 549342 1 Tablet(s) PO daily 10/01/2015 12/03/2015 Inactive Lasix 20 mg tablet RxNorm: 572296 1 Tablet(s) PO PRN fror swelling 09/27/2015 10/29/2015 In active potassium chloride E R 10 mEq capsule,extended release RxNorm: 899660 1 Capsule(s) PO PRN for swelling take with lasix 09/27/2015 10/29/2015 Inactive Bactrim DS 800 mg-16 0 mg tablet RxNorm: 148677 1 Tablet(s) PO BID 09/02/2015 09/11/2015 Inactive Bactrim DS 800 mg-16 0 mg tablet RxNorm: 535735 1 Tablet(s) PO BID 09/02/2015 09/01/2015 Inactive nystatin 100,000 uni t/gram topical cream RxNorm: 103036 1 Gram(s) TOP TID 08/28/2015 09/26/2015 In active Diflucan 150 mg tablet RxNorm: 513110 1 Tablet(s) PO daily 08/28/2015 09/06/2015 Inactive betamethasone diprop ionate 0.05 % topical ointment RxNorm: 780064 1 Application TOP TID to affected area 08/02/2015 02/01/2017 Inactive nystatin 100,000 uni t/gram topical powder RxNorm: 858175 1 Gram(s) TOP QID 07/09/2015 08/01/2015 In active Ambien 10 mg tablet RxNorm: 177030 1 Tablet(s) PO QHS 06/19/2015 06/18/2015 Inactive Ambien 10 mg tablet RxNorm: 911015 TAKE ONE TABLET BY MOUTH EVERY NIGHT AT BEDTIME 06/19/2015 09/16/2015 Inactive Vitamin D2 50,000 un it capsule RxNorm: 503407 1 Capsule(s) PO QW 03/07/2015 03/06/2015 Inactive Vitamin D2 50,000 un it capsule RxNorm: 5844149 1 Capsule(s) PO QW 03/07/2015 05/05/2015 Inactive terazosin 5 mg capsule RxNorm: 187213 1 Capsule(s) PO daily 03/06/2015 02/28/2016 Inactive [SAVINGS FOR NON-COVERED DRUGS -- BIN:00 3585, PCN: [id number], Group: [id number], ID# [id number], Questions: . THIS IS NOT INSURANCE.] trazodone 50 mg tablet RxNorm: 053684 1 Tablet(s) PO daily 03/06/2015 02/28/2016 Inactive paroxetine 20 mg tablet RxNorm: 5172824 1 Tablet(s) PO daily 03/06/2015 02/28/2016 Inactive Tylenol-Codeine #3 3 00 mg-30 mg tablet RxNorm: 915711 1 Tablet(s) PO QID as needed 03/06/2015 07/02/2015 In active amlodipine 10 mg tablet RxNorm: 045052 1 Tablet(s) PO daily 03/06/2015 11/17/2015 Inactive metoprolol succinate ER 25 mg tablet,extended release 24 hr RxNorm: 512198 1 Tablet(s) PO daily 03/06/2015 11/17/2015 Inactive omeprazole 20 mg cap marina,delayed release RxNorm: 273827 1 Capsule(s) PO QHS 03/06/2015 02/28/2016 In active omeprazole 20 mg cap marina,delayed release RxNorm: 948685 1 Capsule(s) PO QHS 01/31/2015 01/30/2015 In active omeprazole 20 mg cap marina,delayed release RxNorm: 845737 1 Capsule(s) PO QHS 01/31/2015 01/30/2015 In active omeprazole 20 mg cap marina,delayed release RxNorm: 170413 1 Capsule(s) PO QHS 01/31/2015 03/05/2015 In active Ambien 10 mg tablet RxNorm: 819294 1 Tablet(s) PO QHS 12/25/2014 04/21/2015 Inactive paroxetine 20 mg tablet RxNorm: 970019 1 Tablet(s) PO daily 12/25/2014 12/24/2014 Inactive Ambien 10 mg tablet RxNorm: 633351 1 Tablet(s) PO QHS 12/25/2014 12/24/2014 Inactive paroxetine 20 mg tablet RxNorm: 194281 1 Tablet(s) PO daily 12/25/2014 03/05/2015 Inactive terazosin 5 mg capsule RxNorm: 252131 1 Capsule(s) PO daily 11/23/2014 03/05/2015 Inactive [SAVINGS FOR NON-COVERED DRUGS -- BIN:00 3585, PCN: [id number], Group: XXXXX, ID# [id number], Questions: . THIS IS NOT INSURANCE.] terazosin 5 mg capsule RxNorm: 515745 1 Capsule(s) PO daily 11/23/2014 11/22/2014 Inactive Multaq 400 mg tablet RxNorm: 679427 oral No Start Date Active hydrochlorothiazide 25 mg tablet RxNorm: 816654 1 Tablet(s) PO daily No Start Date Active Vitamin D3 2,000 uni t tablet RxNorm: 599097 1 Tablet(s) PO daily No Start Date Active Zetia 10 mg tablet RxNorm: 582359 1 Tablet(s) PO daily No Start Date Active Lipitor 80 mg tablet RxNorm: 761143 1/2 Tablet(s) PO daily No Start Date Active Coumadin 4 mg tablet RxNorm: 785443 1 Tablet(s) PO daily No Start Date Active Lasix 20 mg tablet RxNorm: 941950 1 Tablet(s) PO daily No Start Date 02/22/2019 Inactive metoprolol succinate ER 25 mg tablet,extended release 24 hr RxNorm: 645468 1 Tablet(s) PO daily No Start Date 03/05/2015 Inactive Entresto 49 mg-51 mg tablet RxNorm: 3877904 1 Tablet(s) PO BID No Start Date 04/19/2018 Inactive K-Dur 10 mEq tablet, extended release RxNorm: 693747 1 Tablet(s) PO daily No Start Date 02/22/2019 Inactive sotalol 80 mg tablet RxNorm: 3065062 1 Tablet(s) PO BID No Start Date 04/19/2018 Inactive betamethasone diprop ionate 0.05 % topical ointment RxNorm: 611359 1 Application TOP TID to affected area No Start Date 08/01/2015 Inactive trazodone 50 mg tablet RxNorm: 208485 1 Tablet(s) PO daily No Start Date 03/05/2015 Inactive potassium chloride E R 10 mEq capsule,extended release RxNorm: 854969 1 Capsule(s) PO PRN for swelling take with lasix No Start Date 09/26/2015 Inactive Eliquis 5 mg tablet RxNorm: 8676163 1 Tablet(s) PO BID No Start Date 09/14/2018 Inactive amiodarone 200 mg ta blet RxNorm: 065468 1 Tablet(s) PO BID No Start Date 01/30/2019 Inactive amlodipine 10 mg tablet RxNorm: 095707 1 Tablet(s) PO daily No Start Date 03/05/2015 Inactive isosorbide mononitra te ER 30 mg tablet,extended release 24 hr RxNorm: 168886 1 Tablet(s) PO daily No Start Date 08/22/2017 Inactive aspirin 81 mg tablet ,delayed release RxNorm: 528310 1 Tablet(s) PO daily No Start Date 02/02/2017 Inactive Lasix 20 mg tablet RxNorm: 066943 1 Tablet(s) PO PRN fror swelling No Start Date 09/26/2015 Inactive lisinopril 5 mg tablet RxNorm: 636362 1 Tablet(s) PO daily No Start Date 07/31/2018 Inactive Crestor 40 mg tablet RxNorm: 024259 1 Tablet(s) PO daily No Start Date 09/15/2016 Inactive metoprolol succinate ER 100 mg tablet,extended release 24 hr RxNorm: 677174 1 Tablet(s) PO daily No Start Date 12/15/2017 Inactive Medication Administered No Medication Administered data Immunizations Vaccine Codes Date Status Influenza CVX: 141 04/20 completed Influenza CVX: 141 04/08 completed Pneumococcal (Adult) CVX: 133 04/08/2016 completed Assessments Condition Codes Effectiv e Dates Localized edema ICD-10: R60.0 ICD-9: 782.3 03/17/2019 Pain in right knee ICD-10: M25.561 ICD-9: 719.46 03/09/2019 Urinary tract infection, site not specified ICD-10: N39.0 ICD-9: 599.0 02/23/2019 Lumbago with sciatica, right side IC D-10: M54.41 ICD-9: 724.3 02/14/2019 Paroxysmal atrial fibrillation ICD-1 0: I48.0 ICD-9: 427.31 01/31/2019 Dysuria ICD-10: R30.0 ICD-9: 788.1 01/31/2019 Low back pain ICD-10: M54.5 ICD-9: 724.2 01/12/2019 Essential (primary) hypertension ICD -10: I10 ICD-9: 401.1 01/12/2019 Vitamin D deficiency, unspecified IC D-10: E55.9 ICD-9: 268.9 01/12/2019 Chronic atrial fibrillation ICD-10: I48.2 ICD-9: 427.31 01/12/2019 Cellulitis of abdominal wall ICD-10: L03.311 ICD-9: 682.2 12/06/2018 Major depressive disorder, recurrent, moderate ICD-10: F33.1 ICD-9: 296.32 11/15/2018 Diarrhea, unspecified ICD-10: R19.7 ICD-9: 787.91 10/25/2018 Eructation ICD-10: R14.2 ICD-9: 787.3 10/25/2018 Nausea ICD-10: R11.0 ICD-9: 787.02 10/25/2018 Chest pain, unspecified ICD-10: R07. 9 ICD-9: 786.50 10/25/2018 Essential (primary) hypertension ICD -10: I10 ICD-9: 401.9 09/15/2018 Cough ICD-10: R05 ICD-9: 786.2 08/01/2018 Major depressive disorder, recurrent, mild ICD-10: F33.0 ICD-9: 296.31 04/20/2018 Encounter for immunization ICD-10: Z 23 ICD-9: V03.9 04/20/2018 Encounter for general adult medical exam ination with abnormal findings ICD-10: Z00.01 ICD-9: V70.0 02/09/2018 Obstructive sleep apnea (adult) (pediatric) ICD-10: G47.33 ICD-9: 327.23 12/16/2017 Acute laryngopharyngitis ICD-10: J06 .0 ICD-9: 465.0 11/26/2016 Pleurodynia ICD-10: R07.81 ICD-9: 786.50 11/26/2016 Other dorsalgia ICD-10: M54.89 ICD-9: 724.5 11/26/2016 Pain in left knee ICD-10: M25.562 ICD-9: 719.46 10/07/2016 Rash and other nonspecific skin eruption ICD-10: R21 ICD-9: 782.1 09/16/2016 Pain in left lower leg ICD-10: M79.6 62 ICD-9: 729.5 09/07/2016 Mixed hyperlipidemia ICD-10: E78.2 ICD-9: 272.2 04/08/2016 Shortness of breath ICD-10: R06.02 ICD-9: 786.05 03/05/2016 Chronic obstructive pulmonary disease, unspecified ICD-10: J44.9 ICD-9: 491.20 12/04/2015 Allergic rhinitis due to pollen ICD- 10: J30.1 ICD-9: 477.0 11/18/2015 Methicillin susceptible Staphylococcus a ureus infection as the cause of diseases classified elsewhere ICD-10: B95.61 ICD-9: 041.11 09/09/2015 Methicillin susceptible Staphylococcus a ureus infection, unspecified site ICD-10: A49.01 ICD-9: 041.11 09/09/2015 Dermatophytosis, unspecified ICD-10: B35.9 ICD-9: 110.9 08/28/2015 Gastro-esophageal reflux disease without esophagitis ICD-10: K21.9 ICD-9: 530.81 07/09/2015 ESOPHAGEAL REFLUX ICD-9: 530.81 03/06/2015 ESSENTIAL HYPERTENSION ICD-9: 401.9 03/06/2015 Back pain ICD-9: 724.5 0 03/06/2015 Insomnia ICD-9: 780.52 0 03/06/2015 Osteoporosis ICD-9: 733.00 03/06/2015 Reason For Visit Reason For Visit Effective Dates Notes edema 03/17/2019 edema 03/09/2019 Hospital Follow Up 02/23/2019 low back pain 02/14/2019 low back pain 01/31/2019 hypertension 01/12/2019 edema 12/06/2018 hypertension 11/15/2018 diarrhea 10/25/2018 hypertension 10/13/2018 hypertension 09/15/2018 blood pressure followup 08/15/2018 cough [...] Observation Code Item Item Code Result Date Pt [id number] PT 23.8 seconds 03/09/2019 Pt [id number] INR 2.2 03/09/2019 Pt [id number] Low Intensity - 1.5-2.0 03/09/2019 Pt Hwt8613 Mod intensity - 2.0-3.0 03/09/2019 Pt Nff0162 Hi intensity - 3.0-4.0 03/09/2019 Comp Metabolic Hgm286 NA 137 mEq/L 03/09/2019 Comp Metabolic Cwk261 K 4.6 mEq/L 03/09/2019 Comp Metabolic Bvu843 CL 101 mEq/L 03/09/2019 Comp Metabolic Rjf352 CO2 26.0 mEq/L 03/09/2019 Comp Metabolic Rjg202 AN ION GAP 15 03/09/2019 Comp Metabolic Yqq956 GL UCOSE 93 mg/dL 03/09/2019 Comp Metabolic Qzw497 Cr eat 1.2 mg/dL 03/09/2019 Comp Metabolic Auv951 eG FR 48 ml/min/1.73m2 03/09 Comp Metabolic Ghm891 BUN 14 mg/dL 03/09/2019 Comp Metabolic Rtu852 B/ C Ratio 12.0 Ratio 03/09/2019 Comp Metabolic Jqe619 CA LCIUM 9.2 mg/dL 03/09/2019 Comp Metabolic Lmm697 AL K PHOS 61 U/L 03/09/2019 Comp Metabolic Ekp575 T(SGOT) 29 U/L 03/09/2019 Comp Metabolic Hnc427 AL T(SGPT) 22 U/L 03/09/2019 Comp Metabolic Ljq422 BI LI T 0.7 mg/dL 03/09/2019 Comp Metabolic Sqr284 AL BUMIN 3.9 g/dL 03/09/2019 Comp Metabolic Olz357 TP RO 6.4 g/dL 03/09/2019 Comp Metabolic Uhb856 GL OB 2.5 g/dL 03/09/2019 Comp Metabolic Chx953 A/ G Ratio 1.5 Ratio 03/09/2019 Comp Metabolic Jip400 Os mo 274 mOsmo 03/09/2019 CULTURE, URINE M100 URIN E CULTURE See Note 02/03/2019 Pt Sch7450 PT 24.7 seconds 01/12/2019 Pt Wts5302 INR 2.3 01/12/2019 Pt Nqx0020 Low Intensity - 1.5-2.0 01/12/2019 Pt Tqp5794 Mod intensity - 2.0-3.0 01/12/2019 Pt Tsy4152 Hi intensity - 3.0-4.0 01/12/2019 Cbc With Differential Ord2 WBC 3.60 K/ul 01/12/2019 Cbc With Differential Ord2 RBC 4.44 M/ul 01/12/2019 Cbc With Differential Ord2 HGB 12.0 g/dl 01/12/2019 Cbc With Differential Ord2 HCT 38.6 % 01/12/2019 Cbc With Differential Ord2 Neut% 59.1 % 01/12/2019 Cbc With Differential Ord2 MCV 86.9 fl 01/12/2019 Cbc With Differential Ord2 Lymph% 25.6 % 01/12/2019 Cbc With Differential Ord2 MCH 27.0 pg 01/12/2019 Cbc With Differential Ord2 [place]% 11.1 % 01/12/2019 Cbc With Differential Ord2 MCHC 31.1 pg 01/12/2019 Cbc With Differential Ord2 Eos% 3.9 % 01/12/2019 Cbc With Differential Ord2 PLT 234 K/ul 01/12/2019 Cbc With Differential Ord2 Baso% 0.3 % 01/12/2019 Cbc With Differential Ord2 RDW 19.8 % 01/12/2019 Cbc With Differential Ord2 Neut ABS# 2.13 K/ul 01/12/2019 Cbc With Differential Ord2 Lymph ABS# 0.92 K/ul 01/12/2019 Cbc With Differential Ord2 [place] ABS# 0.4 K/ul 01/12/2019 Cbc With Differential Ord2 Eos ABS# 0.1 K/ul 01/12/2019 Cbc With Differential Ord2 Baso ABS# 0.0 K/ul 01/12/2019 Comp Metabolic Yxh906 NA 141 mEq/L 01/12/2019 Comp Metabolic Xsq374 K 3.8 mEq/L 01/12/2019 Comp Metabolic Klb209 CL 105 mEq/L 01/12/2019 Comp Metabolic Lrc988 CO2 26.0 mEq/L 01/12/2019 Comp Metabolic Xeb274 AN ION GAP 14 01/12/2019 Comp Metabolic Nni059 GL UCOSE 112 mg/dL 01/12/2019 Comp Metabolic Ftk463 Cr eat 1.0 mg/dL 01/12/2019 Comp Metabolic Icj279 eG FR 60 ml/min/1.73m2 01/12 Comp Metabolic Plo834 BUN 14 mg/dL 01/12/2019 Comp Metabolic Iex048 B/ C Ratio 14.4 Ratio 01/12/2019 Comp Metabolic Ari615 CA LCIUM 8.8 mg/dL 01/12/2019 Comp Metabolic Aby781 AL K PHOS 60 U/L 01/12/2019 Comp Metabolic Xdb635 T(SGOT) 22 U/L 01/12/2019 Comp Metabolic Xyo420 AL T(SGPT) 22 U/L 01/12/2019 Comp Metabolic Ozh958 BI LI T 0.5 mg/dL 01/12/2019 Comp Metabolic Lxw883 AL BUMIN 3.9 g/dL 01/12/2019 Comp Metabolic Hsx480 TP RO 6.5 g/dL 01/12/2019 Comp Metabolic Zpu632 GL OB 2.6 g/dL 01/12/2019 Comp Metabolic Htf239 A/ G Ratio 1.5 Ratio 01/12/2019 Comp Metabolic Oxy706 Os mo 282 mOsmo 01/12/2019 Vitamin D 25 Oh Lzd4581 VITAMIN D, 25 HYDROXY 30.62 ng/mL 01/12/2019 Urine Culture Ucult Comp lete >100,000 col/ml aerobic grow th sent to ref lab 11/16/2018 Culture Urine [id number] URI NE CULTURE SEE NOTES 08/22/2018 Culture Urine [id number] Con tinued Results 08/22/2018 Urine Culture Ucult Comp lete >100,000 col/ml aerobic grow th sent to ref lab 08/19/2018 Comp Metabolic Sfp234 NA 140 mEq/L 08/01/2018 Comp Metabolic Efl963 K 4.2 mEq/L 08/01/2018 Comp Metabolic Ujt675 CL 102 mEq/L 08/01/2018 Comp Metabolic Kxq984 CO2 27.0 mEq/L 08/01/2018 Comp Metabolic Uox548 AN ION GAP 15 08/01/2018 Comp Metabolic Qzn005 GL UCOSE 107 mg/dL 08/01/2018 Comp Metabolic Qgg384 Cr eat 1.0 mg/dL 08/01/2018 Comp Metabolic Wko469 eG FR 58 ml/min/1.73m2 08/01 Comp Metabolic Dag227 BUN 10 mg/dL 08/01/2018 Comp Metabolic Lny267 B/ C Ratio 10.0 Ratio 08/01/2018 Comp Metabolic Hym641 CA LCIUM 8.9 mg/dL 08/01/2018 Comp Metabolic Bjx687 AL K PHOS 68 U/L 08/01/2018 Comp Metabolic Mbn221 T(SGOT) 18 U/L 08/01/2018 Comp Metabolic Ocy329 AL T(SGPT) 14 U/L 08/01/2018 Comp Metabolic Qxb302 BI LI T 0.5 mg/dL 08/01/2018 Comp Metabolic Ord557 AL BUMIN 4.0 g/dL 08/01/2018 Comp Metabolic Lcg239 TP RO 6.3 g/dL 08/01/2018 Comp Metabolic Dze722 GL OB 2.3 g/dL 08/01/2018 Comp Metabolic Lml602 A/ G Ratio 1.7 Ratio 08/01/2018 Comp Metabolic Kzz683 Os mo 279 mOsmo 08/01/2018 Tsh Ord6 TSH (3rd [...] 27.3 pg 08/01/2018 Cbc With Differential Ord2 [place]% 9.8 % 08/01/2018 Cbc With Differential Ord2 [...] 0.79 K/ul 08/01/2018 Cbc With Differential Ord2 [place] ABS# 0.4 K/ul 08/01/2018 Cbc With Differential Ord2 Eos ABS# 0.1 K/ul 08/01/2018 Cbc With Differential Ord2 Baso ABS# 0.0 K/ul 08/01/2018 Lipid Ord30 CHOL 234 mg/dL 08/01/2018 Lipid Ord30 HDL 69.0 mg/dl 08/01/2018 Lipid Ord30 TRIG 57 mg/dL 08/01/2018 Lipid Ord30 LDL 154 mg/dL 08/01/2018 Lipid Ord30 C/HDL 3.4 Ratio 08/01/2018 Comp Metabolic Ydc324 NA 137 mEq/L 09/30/2015 Comp Metabolic Ydg218 K 4.5 mEq/L 09/30/2015 Comp Metabolic Hgp270 CL 102 mEq/L 09/30/2015 Comp Metabolic Fip099 CO2 26.0 mEq/L 09/30/2015 Comp Metabolic Ars854 AN ION GAP 14 09/30/2015 Comp Metabolic Ymn793 GL UCOSE 89 mg/dL 09/30/2015 Comp Metabolic Afe782 Cr eat 0.8 mg/dL 09/30/2015 Comp Metabolic Fsb312 eG FR 79 ml/min/1.73m2 09/29 Comp Metabolic Xjh478 BUN 14 mg/dL 09/30/2015 Comp Metabolic Wgf233 B/ C Ratio 18.2 Ratio 09/30/2015 Comp Metabolic Psx124 CA LCIUM 8.9 mg/dL 09/30/2015 Comp Metabolic Vhm844 AL K PHOS 65 U/L 09/30/2015 Comp Metabolic Kmi633 T(SGOT) 26 U/L 09/30/2015 Comp Metabolic Viu753 AL T(SGPT) 18 U/L 09/30/2015 Comp Metabolic Hdv361 BI LI T 0.6 mg/dL 09/30/2015 Comp Metabolic Kqd635 AL BUMIN 3.8 g/dL 09/30/2015 Comp Metabolic Nuu019 TP RO 6.6 g/dL 09/30/2015 Comp Metabolic Uba696 GL OB 2.8 g/dL 09/30/2015 Comp Metabolic Fmy086 A/ G Ratio 1.4 Ratio 09/30/2015 Comp Metabolic Rxa140 Os mo 274 mOsmo 09/30/2015 Cbc With Differential Ord2 [...] 27.7 pg 09/30/2015 Cbc With Differential Ord2 [place]% 10.7 % 09/30/2015 Cbc With Differential Ord2 [...] 1.10 K/ul 09/30/2015 Cbc With Differential Ord2 [place] ABS# 0.6 K/ul 09/30/2015 Cbc With Differential Ord2 Eos ABS# 0.2 K/ul 09/30/2015 Cbc With Differential Ord2 Baso ABS# 0.0 K/ul 09/30/2015 Cbc With Differential Ord2 New Analyzer Notice Please note new ref ranges s tarting 08-07-2015 due to implemntation of new five part differential hematolgy analyzer. 09/30/2015 Tsh Ord6 hTSH II 1.05 uIU/mL 03/06/2015 Comp Metabolic Fzx382 NA 137 mEq/L 03/06/2015 Comp Metabolic Szn897 K 4.3 mEq/L 03/06/2015 Comp Metabolic Mwg830 CL 104 mEq/L 03/06/2015 Comp Metabolic Jzp649 CO2 28.0 mEq/L 03/06/2015 Comp Metabolic Hcp915 AN ION GAP 9 03/06/2015 Comp Metabolic Pjm475 GL UCOSE 93 mg/dL 03/06/2015 Comp Metabolic Zxs961 Cr eat 0.8 mg/dL 03/06/2015 Comp Metabolic Lcp323 eG FR 81 ml/min/1.73m2 03/06 Comp Metabolic Qpw275 BUN 12 mg/dL 03/06/2015 Comp Metabolic Xed759 B/ C Ratio 16.0 Ratio 03/06/2015 Comp Metabolic Bjy318 CA LCIUM 8.9 mg/dL 03/06/2015 Comp Metabolic Jkm215 AL K PHOS 56 U/L 03/06/2015 Comp Metabolic Jfd203 T(SGOT) 22 U/L 03/06/2015 Comp Metabolic Mnu386 AL T(SGPT) 15 U/L 03/06/2015 Comp Metabolic Xyf977 BI LI T 0.4 mg/dL 03/06/2015 Comp Metabolic Pby117 AL BUMIN 4.0 g/dL 03/06/2015 Comp Metabolic Oxu414 TP RO 6.5 g/dL 03/06/2015 Comp Metabolic Ztk005 GL OB 2.5 g/dL 03/06/2015 Comp Metabolic Rkv466 A/ G Ratio 1.6 Ratio 03/06/2015 Comp Metabolic Nqo826 Os mo 273 mOsmo 03/06/2015 Vitamin D 25 Oh Zkc9345 VITAMIN D, 25 HYDROXY 28.14 ng/mL 03/06/2015 Cbc With Differential Ord2 WBC 5.6 [...] Result Effective Dates Constitutional No recent illness 03/17/2019 Constitutional No night sweats 03/17/2019 Constitutional No chills 03/17/2019 Constitutional No diaphoresis 03/17/2019 Constitutional fatigue 0 03/17/2019 Constitutional No fever 03/17/2019 Constitutional No insomnia 03/17/2019 Constitutional No malaise 03/17/2019 Constitutional No weight loss 03/17/2019 Constitutional No weight gain 03/17/2019 Eyes No eye discharge Eyes No eye erythema Ears/Nose/Throat/Neck No dry mouth 03/17/2019 Ears/Nose/Throat/Neck No dental pain 03/17/2019 Ears/Nose/Throat/Neck No dizziness 03/17/2019 Ears/Nose/Throat/Neck No dysphagia 03/17/2019 Ears/Nose/Throat/Neck No headache 03/17/2019 Ears/Nose/Throat/Neck No hearing loss 03/17/2019 Ears/Nose/Throat/Neck No nasal allergies 03/17/2019 Ears/Nose/Throat/Neck No nasal discharge 03/17/2019 Ears/Nose/Throat/Neck No postnasal drip 03/17/2019 Ears/Nose/Throat/Neck No sinus congestion 03/17/2019 Ears/Nose/Throat/Neck No sore throat 03/17/2019 Cardiovascular edema Cardiovascular exercise intolerance 03/17/2019 Cardiovascular fatigue 0 03/17/2019 Cardiovascular No orthopnea 03/17/2019 Cardiovascular No palpitations 03/17/2019 Respiratory No cough Gastrointestinal No hemorrhoids 03/17/2019 Gastrointestinal No abdominal pain 03/17/2019 Gastrointestinal No constipation 03/17/2019 Gastrointestinal No diarrhea 03/17/2019 Gastrointestinal No gastroesophageal reflu x 03/17/2019 Gastrointestinal No melena 03/17/2019 Gastrointestinal No nausea 03/17/2019 Gastrointestinal No vomiting 03/17/2019 Genitourinary/Nephrology No nocturia 03/17/2019 Musculoskeletal No stiffness 03/17/2019 Musculoskeletal No swelling 03/17/2019 Musculoskeletal back pain 03/17/2019 Musculoskeletal joint complaint 03/17/2019 Musculoskeletal No muscle weakness 03/17/2019 Musculoskeletal No myalgias 03/17/2019 Dermatologic No pruritus 03/17/2019 Dermatologic No rash Dermatologic No scar Neurologic No dizziness 03/17/2019 Neurologic No headache 0 03/17/2019 Neurologic No neck pain 03/17/2019 Neurologic No syncope Psychiatric No confusion 03/17/2019 Psychiatric anxiety 02/24 Psychiatric depression 0 03/17/2019 Endocrine No goiter 02/24 Dermatologic No erythema 03/17/2019 Constitutional No recent illness 03/09/2019 Constitutional No night sweats 03/09/2019 Constitutional No chills 03/09/2019 Constitutional No diaphoresis 03/09/2019 Constitutional fatigue 0 03/09/2019 Constitutional No fever 03/09/2019 Constitutional No insomnia 03/09/2019 Constitutional No malaise 03/09/2019 Constitutional No weight loss 03/09/2019 Constitutional No weight gain 03/09/2019 Eyes No eye discharge Eyes No eye erythema Ears/Nose/Throat/Neck No dry mouth 03/09/2019 Ears/Nose/Throat/Neck No dental pain 03/09/2019 Ears/Nose/Throat/Neck No dizziness 03/09/2019 Ears/Nose/Throat/Neck No dysphagia 03/09/2019 Ears/Nose/Throat/Neck No headache 03/09/2019 Ears/Nose/Throat/Neck No hearing loss 03/09/2019 Ears/Nose/Throat/Neck No nasal allergies 03/09/2019 Ears/Nose/Throat/Neck No nasal discharge 03/09/2019 Ears/Nose/Throat/Neck No postnasal drip 03/09/2019 Ears/Nose/Throat/Neck No sinus congestion 03/09/2019 Ears/Nose/Throat/Neck No sore throat 03/09/2019 Cardiovascular edema Cardiovascular exercise intolerance 03/09/2019 Cardiovascular fatigue 0 03/09/2019 Cardiovascular No orthopnea 03/09/2019 Cardiovascular No palpitations 03/09/2019 Respiratory No cough Gastrointestinal No hemorrhoids 03/09/2019 Gastrointestinal No abdominal pain 03/09/2019 Gastrointestinal No constipation 03/09/2019 Gastrointestinal No diarrhea 03/09/2019 Gastrointestinal No gastroesophageal reflu x 03/09/2019 Gastrointestinal No melena 03/09/2019 Gastrointestinal No nausea 03/09/2019 Gastrointestinal No vomiting 03/09/2019 Genitourinary/Nephrology No nocturia 03/09/2019 Musculoskeletal No stiffness 03/09/2019 Musculoskeletal No swelling 03/09/2019 Musculoskeletal back pain 03/09/2019 Musculoskeletal No muscle weakness 03/09/2019 Musculoskeletal No myalgias 03/09/2019 Dermatologic No pruritus 03/09/2019 Dermatologic erythema Dermatologic No rash Dermatologic No scar Neurologic No dizziness 03/09/2019 Neurologic No headache 0 03/09/2019 Neurologic No neck pain 03/09/2019 Neurologic No syncope Psychiatric No confusion 03/09/2019 Psychiatric anxiety 02/23 Psychiatric depression 0 03/09/2019 Endocrine No goiter 02/23 Musculoskeletal joint complaint 03/09/2019 Constitutional No recent illness 02/23/2019 Constitutional No night sweats 02/23/2019 Constitutional No chills 02/23/2019 Constitutional No diaphoresis 02/23/2019 Constitutional fatigue 0 02/23/2019 Constitutional No fever 02/23/2019 Constitutional No insomnia 02/23/2019 Constitutional No malaise 02/23/2019 Constitutional No weight loss 02/23/2019 Constitutional No weight gain 02/23/2019 Eyes No eye discharge Eyes No eye erythema 07/2018 Ears/Nose/Throat/Neck No dry mouth 02/23/2019 Ears/Nose/Throat/Neck No dental pain 02/23/2019 Ears/Nose/Throat/Neck No dizziness 02/23/2019 Ears/Nose/Throat/Neck No dysphagia 02/23/2019 Ears/Nose/Throat/Neck No headache 02/23/2019 Ears/Nose/Throat/Neck No hearing loss 02/23/2019 Ears/Nose/Throat/Neck No nasal allergies 02/23/2019 Ears/Nose/Throat/Neck No nasal discharge 02/23/2019 Ears/Nose/Throat/Neck No postnasal drip 02/23/2019 Ears/Nose/Throat/Neck No sinus congestion 02/23/2019 Ears/Nose/Throat/Neck No sore throat 02/23/2019 Cardiovascular edema 07/2018 Cardiovascular exercise intolerance 02/23/2019 Cardiovascular fatigue 0 02/23/2019 Cardiovascular No orthopnea 02/23/2019 Cardiovascular No palpitations 02/23/2019 Respiratory No cough 07/2018 Gastrointestinal No hemorrhoids 02/23/2019 Gastrointestinal No abdominal pain 02/23/2019 Gastrointestinal No constipation 02/23/2019 Gastrointestinal No diarrhea 02/23/2019 Gastrointestinal No gastroesophageal reflu x 02/23/2019 Gastrointestinal No melena 02/23/2019 Gastrointestinal No nausea 02/23/2019 Gastrointestinal No vomiting 02/23/2019 Genitourinary/Nephrology dysuria 02/23/2019 Genitourinary/Nephrology No nocturia 02/23/2019 Genitourinary/Nephrology urinary inc ontinence 02/23/2019 Musculoskeletal No stiffness 02/23/2019 Musculoskeletal No swelling 02/23/2019 Musculoskeletal No muscle weakness 02/23/2019 Musculoskeletal No myalgias 02/23/2019 Dermatologic No pruritus 02/23/2019 Dermatologic No rash 07/2018 Dermatologic No scar 07/2018 Neurologic No dizziness 02/23/2019 Neurologic No headache 0 02/23/2019 Neurologic No neck pain 02/23/2019 Neurologic No syncope Psychiatric No confusion 02/23/2019 Psychiatric anxiety 08/0 07/2018 Psychiatric depression 0 02/23/2019 Endocrine No goiter 08/0 07/2018 Musculoskeletal back pain 02/23/2019 Genitourinary/Nephrology urinary urgency 02/23/2019 Genitourinary/Nephrology urinary frequency 02/23/2019 Dermatologic erythema Constitutional No recent illness 02/14/2019 Constitutional No night sweats 02/14/2019 Constitutional No chills 02/14/2019 Constitutional No diaphoresis 02/14/2019 Constitutional No fatigue 02/14/2019 Constitutional No fever 02/14/2019 Constitutional No insomnia 02/14/2019 Constitutional No malaise 02/14/2019 Constitutional No weight loss 02/14/2019 Constitutional No weight gain 02/14/2019 Constitutional No obesity 02/14/2019 Eyes No blindness 2018 Eyes No eye discharge Eyes No eye erythema Eyes No eye floaters Eyes No eye foreign body 02/14/2019 Eyes No eye pain 019 Eyes No eye tearing 01/24 Eyes No eye trauma 02/14 Eyes No eyelid edema Eyes No eyelid erythema 02/14/2019 Eyes No eyelid pain 01/24 Eyes No photophobia 01/24 Eyes No vision change Eyes No amblyopia 2018 Eyes No cataract 019 Eyes No glaucoma 019 Eyes No macular degeneration 02/14/2019 Ears/Nose/Throat/Neck No dry mouth 02/14/2019 Ears/Nose/Throat/Neck No dental pain 02/14/2019 Ears/Nose/Throat/Neck No dizziness 02/14/2019 Ears/Nose/Throat/Neck No dysphagia 02/14/2019 Ears/Nose/Throat/Neck No headache 02/14/2019 Ears/Nose/Throat/Neck No hearing loss 02/14/2019 Ears/Nose/Throat/Neck No nasal allergies 02/14/2019 Ears/Nose/Throat/Neck No nasal discharge 02/14/2019 Ears/Nose/Throat/Neck No postnasal drip 02/14/2019 Ears/Nose/Throat/Neck No sinus congestion 02/14/2019 Ears/Nose/Throat/Neck No sore throat 02/14/2019 Cardiovascular No arrhythmia 02/14/2019 Cardiovascular No chest pain/pressure 02/14/2019 Cardiovascular No dyspnea 02/14/2019 Cardiovascular No edema 02/14/2019 Cardiovascular No exercise intolerance 02/14/2019 Cardiovascular No fatigue 02/14/2019 Cardiovascular No near-syncope/dizziness 02/14/2019 Cardiovascular No orthopnea 02/14/2019 Cardiovascular No palpitations 02/14/2019 Respiratory No electronic cigarettes/Vapor 02/14/2019 Respiratory No asthma Respiratory No pleuritic pain 02/14/2019 Respiratory No productive sputum 02/14/2019 Respiratory No chest tightness 02/14/2019 Respiratory No cigarette smoking 02/14/2019 Respiratory No cough Respiratory No dyspnea 0 02/14/2019 Respiratory No pedal edema 02/14/2019 Respiratory No snoring 0 02/14/2019 Respiratory No wheezing 02/14/2019 Gastrointestinal No hemorrhoids 02/14/2019 Gastrointestinal No abdominal pain 02/14/2019 Gastrointestinal No constipation 02/14/2019 Gastrointestinal No diarrhea 02/14/2019 Gastrointestinal No gastroesophageal reflu x 02/14/2019 Gastrointestinal No melena 02/14/2019 Gastrointestinal No nausea 02/14/2019 Gastrointestinal No vomiting 02/14/2019 Genitourinary/Nephrology No dysuria 02/14/2019 Genitourinary/Nephrology No nocturia 02/14/2019 Genitourinary/Nephrology No urinary incontinence 02/14/2019 Musculoskeletal No stiffness 02/14/2019 Musculoskeletal No swelling 02/14/2019 Musculoskeletal No muscle weakness 02/14/2019 Musculoskeletal No myalgias 02/14/2019 Dermatologic No pruritus 02/14/2019 Dermatologic No rash Dermatologic No scar Neurologic No dizziness 02/14/2019 Neurologic No headache 0 02/14/2019 Neurologic No neck pain 02/14/2019 Neurologic No syncope Psychiatric No confusion 02/14/2019 Psychiatric No anxiety 0 02/14/2019 Psychiatric No depression 02/14/2019 Endocrine No goiter 01/24 Constitutional No recent illness 01/31/2019 Constitutional No night sweats 01/31/2019 Constitutional No chills 01/31/2019 Constitutional No diaphoresis 01/31/2019 Constitutional No fatigue 01/31/2019 Constitutional No fever 01/31/2019 Constitutional No insomnia 01/31/2019 Constitutional No malaise 01/31/2019 Constitutional No weight loss 01/31/2019 Constitutional No weight gain 01/31/2019 Constitutional No obesity 01/31/2019 Eyes No blindness 2018 Eyes No eye discharge Eyes No eye erythema 03/2019 Eyes No eye floaters 03/2019 Eyes No eye foreign body 01/31/2019 Eyes No eye pain 019 Eyes No eye tearing 03/2019 Eyes No eye trauma 01/31 Eyes No eyelid edema 03/2019 Eyes No eyelid erythema 01/31/2019 Eyes No eyelid pain 03/2019 Eyes No photophobia 03/2019 Eyes No vision change Eyes No amblyopia 2018 Eyes No cataract 019 Eyes No glaucoma 019 Eyes No macular degeneration 01/31/2019 Ears/Nose/Throat/Neck No dry mouth 01/31/2019 Ears/Nose/Throat/Neck No dental pain 01/31/2019 Ears/Nose/Throat/Neck No dizziness 01/31/2019 Ears/Nose/Throat/Neck No dysphagia 01/31/2019 Ears/Nose/Throat/Neck No headache 01/31/2019 Ears/Nose/Throat/Neck No hearing loss 01/31/2019 Ears/Nose/Throat/Neck No nasal allergies 01/31/2019 Ears/Nose/Throat/Neck No nasal discharge 01/31/2019 Ears/Nose/Throat/Neck No postnasal drip 01/31/2019 Ears/Nose/Throat/Neck No sinus congestion 01/31/2019 Ears/Nose/Throat/Neck No sore throat 01/31/2019 Cardiovascular No arrhythmia 01/31/2019 Cardiovascular No chest pain/pressure 01/31/2019 Cardiovascular dyspnea 0 01/31/2019 Cardiovascular edema 03/2019 Cardiovascular exercise intolerance 01/31/2019 Cardiovascular No fatigue 01/31/2019 Cardiovascular No near-syncope/dizziness 01/31/2019 Cardiovascular No orthopnea 01/31/2019 Cardiovascular No palpitations 01/31/2019 Respiratory No electronic cigarettes/Vapor 01/31/2019 Respiratory No asthma Respiratory No pleuritic pain 01/31/2019 Respiratory No productive sputum 01/31/2019 Respiratory No chest tightness 01/31/2019 Respiratory No cigarette smoking 01/31/2019 Respiratory cough 2018 Respiratory No dyspnea 0 01/31/2019 Respiratory No pedal edema 01/31/2019 Respiratory No snoring 0 01/31/2019 Respiratory No wheezing 01/31/2019 Gastrointestinal No hemorrhoids 01/31/2019 Gastrointestinal No abdominal pain 01/31/2019 Gastrointestinal No constipation 01/31/2019 Gastrointestinal No diarrhea 01/31/2019 Gastrointestinal No gastroesophageal reflu x 01/31/2019 Gastrointestinal No melena 01/31/2019 Gastrointestinal No nausea 01/31/2019 Gastrointestinal No vomiting 01/31/2019 Genitourinary/Nephrology No dysuria 01/31/2019 Genitourinary/Nephrology No nocturia 01/31/2019 Genitourinary/Nephrology No urinary incontinence 01/31/2019 Musculoskeletal No stiffness 01/31/2019 Musculoskeletal No swelling 01/31/2019 Musculoskeletal back pain 01/31/2019 Musculoskeletal No muscle weakness 01/31/2019 Musculoskeletal No myalgias 01/31/2019 Dermatologic No pruritus 01/31/2019 Dermatologic No rash 03/2019 Dermatologic No scar 03/2019 Neurologic No dizziness 01/31/2019 Neurologic No headache 0 01/31/2019 Neurologic No neck pain 01/31/2019 Neurologic No syncope Psychiatric No confusion 01/31/2019 Psychiatric No anxiety 0 01/31/2019 Psychiatric No depression 01/31/2019 Constitutional No recent illness 01/12/2019 Constitutional No night sweats 01/12/2019 Constitutional No chills 01/12/2019 Constitutional No diaphoresis 01/12/2019 Constitutional No fatigue 01/12/2019 Constitutional No fever 01/12/2019 Constitutional No insomnia 01/12/2019 Constitutional No malaise 01/12/2019 Constitutional No weight loss 01/12/2019 Constitutional No weight gain 01/12/2019 Constitutional No obesity 01/12/2019 Eyes No blindness 2018 Eyes No eye discharge Eyes No eye erythema Eyes No eye floaters Eyes No eye foreign body 01/12/2019 Eyes No eye pain 019 Eyes No eye tearing 12/25 Eyes No eye trauma 01/12 Eyes No eyelid edema Eyes No eyelid erythema 01/12/2019 Eyes No eyelid pain 12/25 Eyes No photophobia 12/25 Eyes No vision change Eyes No amblyopia 2018 Eyes No cataract 019 Eyes No glaucoma 019 Eyes No macular degeneration 01/12/2019 Ears/Nose/Throat/Neck No dry mouth 01/12/2019 Ears/Nose/Throat/Neck No dental pain 01/12/2019 Ears/Nose/Throat/Neck No dizziness 01/12/2019 Ears/Nose/Throat/Neck No dysphagia 01/12/2019 Ears/Nose/Throat/Neck No headache 01/12/2019 Ears/Nose/Throat/Neck No hearing loss 01/12/2019 Ears/Nose/Throat/Neck No nasal allergies 01/12/2019 Ears/Nose/Throat/Neck No nasal discharge 01/12/2019 Ears/Nose/Throat/Neck No postnasal drip 01/12/2019 Ears/Nose/Throat/Neck No sinus congestion 01/12/2019 Ears/Nose/Throat/Neck No sore throat 01/12/2019 Cardiovascular No arrhythmia 01/12/2019 Cardiovascular No chest pain/pressure 01/12/2019 Cardiovascular dyspnea 0 01/12/2019 Cardiovascular edema Cardiovascular exercise intolerance 01/12/2019 Cardiovascular No fatigue 01/12/2019 Cardiovascular No near-syncope/dizziness 01/12/2019 Cardiovascular No orthopnea 01/12/2019 Cardiovascular No palpitations 01/12/2019 Respiratory No electronic cigarettes/Vapor 01/12/2019 Respiratory No asthma Respiratory No pleuritic pain 01/12/2019 Respiratory No productive sputum 01/12/2019 Respiratory No chest tightness 01/12/2019 Respiratory No cigarette smoking 01/12/2019 Respiratory cough 2018 Respiratory No dyspnea 0 01/12/2019 Respiratory No pedal edema 01/12/2019 Respiratory No snoring 0 01/12/2019 Respiratory No wheezing 01/12/2019 Gastrointestinal No hemorrhoids 01/12/2019 Gastrointestinal No abdominal pain 01/12/2019 Gastrointestinal No constipation 01/12/2019 Gastrointestinal No diarrhea 01/12/2019 Gastrointestinal No gastroesophageal reflu x 01/12/2019 Gastrointestinal No melena 01/12/2019 Gastrointestinal No nausea 01/12/2019 Gastrointestinal No vomiting 01/12/2019 Genitourinary/Nephrology No dysuria 01/12/2019 Genitourinary/Nephrology No nocturia 01/12/2019 Genitourinary/Nephrology No urinary incontinence 01/12/2019 Musculoskeletal No stiffness 01/12/2019 Musculoskeletal No swelling 01/12/2019 Musculoskeletal No muscle weakness 01/12/2019 Musculoskeletal No myalgias 01/12/2019 Musculoskeletal back pain 01/12/2019 Musculoskeletal bone fracture 01/12/2019 Dermatologic No pruritus 01/12/2019 Dermatologic No rash Dermatologic No scar Neurologic No dizziness 01/12/2019 Neurologic No headache 0 01/12/2019 Neurologic No neck pain 01/12/2019 Neurologic No syncope Psychiatric No confusion 01/12/2019 Psychiatric No anxiety 0 01/12/2019 Psychiatric No depression 01/12/2019 Constitutional recent illness 12/06/2018 Constitutional No anorexia 12/06/2018 Constitutional No night sweats 12/06/2018 Constitutional No chills 12/06/2018 Constitutional No diaphoresis 12/06/2018 Constitutional fatigue 0 12/06/2018 Constitutional No fever 12/06/2018 Constitutional No insomnia 12/06/2018 Constitutional No malaise 12/06/2018 Eyes No blindness 2018 Eyes No vision change Ears/Nose/Throat/Neck No dental pain 12/06/2018 Ears/Nose/Throat/Neck No dizziness 12/06/2018 Ears/Nose/Throat/Neck No dysphagia 12/06/2018 Ears/Nose/Throat/Neck No headache 12/06/2018 Ears/Nose/Throat/Neck No hearing loss 12/06/2018 Ears/Nose/Throat/Neck No nasal allergies 12/06/2018 Ears/Nose/Throat/Neck No postnasal drip 12/06/2018 Ears/Nose/Throat/Neck No sinus congestion 12/06/2018 Ears/Nose/Throat/Neck No sore throat 12/06/2018 Cardiovascular No chest pain/pressure 12/06/2018 Cardiovascular edema Cardiovascular exercise intolerance 12/06/2018 Cardiovascular fatigue 0 12/06/2018 Cardiovascular No near-syncope/dizziness 12/06/2018 Respiratory No productive sputum 12/06/2018 Respiratory No chest tightness 12/06/2018 Respiratory cough 2018 Respiratory No dyspnea on exertion 12/06/2018 Respiratory No dyspnea 0 12/06/2018 Respiratory No pedal edema 12/06/2018 Gastrointestinal No abdominal pain 12/06/2018 Gastrointestinal No constipation 12/06/2018 Gastrointestinal No diarrhea 12/06/2018 Gastrointestinal No gas and bloating 12/06/2018 Gastrointestinal No gastroesophageal reflu x 12/06/2018 Gastrointestinal No nausea 12/06/2018 Gastrointestinal No vomiting 12/06/2018 Genitourinary/Nephrology No nocturia 12/06/2018 Genitourinary/Nephrology urinary urgency 12/06/2018 Genitourinary/Nephrology urinary frequency 12/06/2018 Genitourinary/Nephrology No urinary incontinence 12/06/2018 Musculoskeletal stiffness 12/06/2018 Musculoskeletal No swelling 12/06/2018 Musculoskeletal back pain 12/06/2018 Musculoskeletal No muscle weakness 12/06/2018 Musculoskeletal No myalgias 12/06/2018 Dermatologic No rash Dermatologic sores 12/06 Dermatologic No scar Neurologic No headache 0 12/06/2018 Neurologic No neck pain 12/06/2018 Neurologic No syncope Psychiatric No anxiety 0 12/06/2018 Psychiatric depression 0 12/06/2018 Genitourinary/Nephrology dysuria 12/06/2018 Constitutional No recent illness 11/15/2018 Constitutional No chills 11/15/2018 Constitutional fatigue 0 11/15/2018 Constitutional No fever 11/15/2018 Constitutional No insomnia 11/15/2018 Constitutional No malaise 11/15/2018 Eyes No blindness 2018 Eyes No vision change Ears/Nose/Throat/Neck No dental pain 11/15/2018 Ears/Nose/Throat/Neck No dizziness 11/15/2018 Ears/Nose/Throat/Neck No dysphagia 11/15/2018 Ears/Nose/Throat/Neck No headache 11/15/2018 Ears/Nose/Throat/Neck No hearing loss 11/15/2018 Ears/Nose/Throat/Neck No nasal allergies 11/15/2018 Ears/Nose/Throat/Neck No postnasal drip 11/15/2018 Ears/Nose/Throat/Neck No sinus congestion 11/15/2018 Ears/Nose/Throat/Neck No sore throat 11/15/2018 Cardiovascular No chest pain/pressure 11/15/2018 Cardiovascular edema Cardiovascular exercise intolerance 11/15/2018 Cardiovascular fatigue 0 11/15/2018 Cardiovascular No near-syncope/dizziness 11/15/2018 Respiratory No productive sputum 11/15/2018 Respiratory No chest tightness 11/15/2018 Respiratory cough 2018 Respiratory No dyspnea on exertion 11/15/2018 Respiratory No dyspnea 0 11/15/2018 Respiratory No pedal edema 11/15/2018 Gastrointestinal No abdominal pain 11/15/2018 Gastrointestinal No constipation 11/15/2018 Gastrointestinal diarrhea 11/15/2018 Gastrointestinal No gastroesophageal reflu x 11/15/2018 Gastrointestinal No nausea 11/15/2018 Gastrointestinal No vomiting 11/15/2018 Genitourinary/Nephrology No nocturia 11/15/2018 Genitourinary/Nephrology No urinary incontinence 11/15/2018 Musculoskeletal stiffness 11/15/2018 Musculoskeletal No swelling 11/15/2018 Musculoskeletal back pain 11/15/2018 Musculoskeletal No muscle weakness 11/15/2018 Musculoskeletal No myalgias 11/15/2018 Dermatologic No rash Dermatologic No sores Dermatologic No scar Neurologic No dizziness 11/15/2018 Neurologic No headache 0 11/15/2018 Neurologic No neck pain 11/15/2018 Neurologic No syncope Psychiatric No anxiety 0 11/15/2018 Psychiatric depression 0 11/15/2018 Constitutional No anorexia 11/15/2018 Constitutional No night sweats 11/15/2018 Constitutional No diaphoresis 11/15/2018 Genitourinary/Nephrology urinary urgency 11/15/2018 Genitourinary/Nephrology urinary frequency 11/15/2018 Gastrointestinal No gas and bloating 11/15/2018 Constitutional recent illness 10/25/2018 Constitutional No chills 10/25/2018 Constitutional fatigue 0 10/25/2018 Constitutional No fever 10/25/2018 Constitutional No insomnia 10/25/2018 Constitutional malaise 0 10/25/2018 Eyes No blindness 2018 Eyes No vision change Ears/Nose/Throat/Neck No dental pain 10/25/2018 Ears/Nose/Throat/Neck dizziness 10/25/2018 Ears/Nose/Throat/Neck No dysphagia 10/25/2018 Ears/Nose/Throat/Neck No headache 10/25/2018 Ears/Nose/Throat/Neck No hearing loss 10/25/2018 Ears/Nose/Throat/Neck No nasal allergies 10/25/2018 Ears/Nose/Throat/Neck No postnasal drip 10/25/2018 Ears/Nose/Throat/Neck No sinus congestion 10/25/2018 Ears/Nose/Throat/Neck No sore throat 10/25/2018 Cardiovascular No chest pain/pressure 10/25/2018 Cardiovascular edema 08/2018 Cardiovascular exercise intolerance 10/25/2018 Cardiovascular fatigue 0 10/25/2018 Cardiovascular No near-syncope/dizziness 10/25/2018 Respiratory No productive sputum 10/25/2018 Respiratory No chest tightness 10/25/2018 Respiratory No dyspnea on exertion 10/25/2018 Respiratory No dyspnea 0 10/25/2018 Respiratory No pedal edema 10/25/2018 Genitourinary/Nephrology No dysuria 10/25/2018 Genitourinary/Nephrology No nocturia 10/25/2018 Genitourinary/Nephrology No urinary incontinence 10/25/2018 Musculoskeletal stiffness 10/25/2018 Musculoskeletal No swelling 10/25/2018 Musculoskeletal back pain 10/25/2018 Musculoskeletal No muscle weakness 10/25/2018 Musculoskeletal No myalgias 10/25/2018 Dermatologic No rash 08/2018 Dermatologic No sores Dermatologic No scar 08/2018 Neurologic No dizziness 10/25/2018 Neurologic No headache 0 10/25/2018 Neurologic No neck pain 10/25/2018 Neurologic No syncope Psychiatric No anxiety 0 10/25/2018 Psychiatric No depression 10/25/2018 Respiratory No cough 08/2018 Constitutional anorexia 10/25/2018 Constitutional recent illness 10/13/2018 Constitutional No chills 10/13/2018 Constitutional fatigue 0 10/13/2018 Constitutional No fever 10/13/2018 Constitutional No insomnia 10/13/2018 Constitutional malaise 0 10/13/2018 Eyes No blindness 2018 Eyes No vision change Ears/Nose/Throat/Neck No dental pain 10/13/2018 Ears/Nose/Throat/Neck No dizziness 10/13/2018 Ears/Nose/Throat/Neck No dysphagia 10/13/2018 Ears/Nose/Throat/Neck No headache 10/13/2018 Ears/Nose/Throat/Neck No hearing loss 10/13/2018 Ears/Nose/Throat/Neck No nasal allergies 10/13/2018 Ears/Nose/Throat/Neck No postnasal drip 10/13/2018 Ears/Nose/Throat/Neck No sinus congestion 10/13/2018 Ears/Nose/Throat/Neck No sore throat 10/13/2018 Cardiovascular No chest pain/pressure 10/13/2018 Cardiovascular edema Cardiovascular exercise intolerance 10/13/2018 Cardiovascular fatigue 0 10/13/2018 Cardiovascular No near-syncope/dizziness 10/13/2018 Respiratory No productive sputum 10/13/2018 Respiratory No chest tightness 10/13/2018 Respiratory cough 2018 Respiratory No dyspnea on exertion 10/13/2018 Respiratory No dyspnea 0 10/13/2018 Respiratory No pedal edema 10/13/2018 Gastrointestinal No abdominal pain 10/13/2018 Gastrointestinal No gastroesophageal reflu x 10/13/2018 Gastrointestinal No nausea 10/13/2018 Gastrointestinal No vomiting 10/13/2018 Genitourinary/Nephrology No dysuria 10/13/2018 Genitourinary/Nephrology No nocturia 10/13/2018 Genitourinary/Nephrology No urinary incontinence 10/13/2018 Musculoskeletal stiffness 10/13/2018 Musculoskeletal No swelling 10/13/2018 Musculoskeletal back pain 10/13/2018 Musculoskeletal No muscle weakness 10/13/2018 Musculoskeletal No myalgias 10/13/2018 Dermatologic No rash Dermatologic No sores Dermatologic No scar Neurologic No dizziness 10/13/2018 Neurologic No headache 0 10/13/2018 Neurologic No neck pain 10/13/2018 Neurologic No syncope Psychiatric anxiety 09/24 Psychiatric depression 0 10/13/2018 Constitutional recent illness 09/15/2018 Constitutional No chills 09/15/2018 Constitutional fatigue 0 09/15/2018 Constitutional No fever 09/15/2018 Constitutional No insomnia 09/15/2018 Constitutional malaise 0 09/15/2018 Eyes No blindness 2018 Eyes No vision change Ears/Nose/Throat/Neck No dental pain 09/15/2018 Ears/Nose/Throat/Neck No dizziness 09/15/2018 Ears/Nose/Throat/Neck No dysphagia 09/15/2018 Ears/Nose/Throat/Neck No headache 09/15/2018 Ears/Nose/Throat/Neck No hearing loss 09/15/2018 Ears/Nose/Throat/Neck No nasal allergies 09/15/2018 Ears/Nose/Throat/Neck No postnasal drip 09/15/2018 Ears/Nose/Throat/Neck No sinus congestion 09/15/2018 Ears/Nose/Throat/Neck No sore throat 09/15/2018 Cardiovascular No chest pain/pressure 09/15/2018 Cardiovascular edema Cardiovascular exercise intolerance 09/15/2018 Cardiovascular fatigue 0 09/15/2018 Cardiovascular No near-syncope/dizziness 09/15/2018 Respiratory No productive sputum 09/15/2018 Respiratory No chest tightness 09/15/2018 Respiratory cough 2018 Respiratory No dyspnea on exertion 09/15/2018 Respiratory No dyspnea 0 09/15/2018 Respiratory No pedal edema 09/15/2018 Gastrointestinal No abdominal pain 09/15/2018 Gastrointestinal constipation 09/15/2018 Gastrointestinal diarrhea 09/15/2018 Gastrointestinal No gastroesophageal reflu x 09/15/2018 Gastrointestinal No nausea 09/15/2018 Gastrointestinal No vomiting 09/15/2018 Genitourinary/Nephrology dysuria 09/15/2018 Genitourinary/Nephrology No nocturia 09/15/2018 Genitourinary/Nephrology No urinary incontinence 09/15/2018 Musculoskeletal stiffness 09/15/2018 Musculoskeletal No swelling 09/15/2018 Musculoskeletal back pain 09/15/2018 Musculoskeletal No muscle weakness 09/15/2018 Musculoskeletal No myalgias 09/15/2018 Dermatologic No rash Dermatologic No sores Dermatologic No scar Neurologic No dizziness 09/15/2018 Neurologic No headache 0 09/15/2018 Neurologic No neck pain 09/15/2018 Neurologic No syncope Psychiatric No anxiety 0 09/15/2018 Psychiatric No depression 09/15/2018 Constitutional recent illness 08/15/2018 Constitutional No chills 08/15/2018 Constitutional fatigue 0 08/15/2018 Constitutional No fever 08/15/2018 Constitutional No insomnia 08/15/2018 Constitutional malaise 0 08/15/2018 Eyes No blindness 2018 Eyes No vision change Ears/Nose/Throat/Neck No dental pain 08/15/2018 Ears/Nose/Throat/Neck No dizziness 08/15/2018 Ears/Nose/Throat/Neck No dysphagia 08/15/2018 Ears/Nose/Throat/Neck No headache 08/15/2018 Ears/Nose/Throat/Neck No hearing loss 08/15/2018 Ears/Nose/Throat/Neck No nasal allergies 08/15/2018 Ears/Nose/Throat/Neck No postnasal drip 08/15/2018 Ears/Nose/Throat/Neck No sinus congestion 08/15/2018 Ears/Nose/Throat/Neck No sore throat 08/15/2018 Cardiovascular No chest pain/pressure 08/15/2018 Cardiovascular edema Cardiovascular exercise intolerance 08/15/2018 Cardiovascular fatigue 0 08/15/2018 Cardiovascular No near-syncope/dizziness 08/15/2018 Respiratory No productive sputum 08/15/2018 Respiratory No chest tightness 08/15/2018 Respiratory cough 2018 Respiratory No dyspnea on exertion 08/15/2018 Respiratory No dyspnea 0 08/15/2018 Respiratory No pedal edema 08/15/2018 Gastrointestinal No abdominal pain 08/15/2018 Gastrointestinal No constipation 08/15/2018 Gastrointestinal No diarrhea 08/15/2018 Gastrointestinal No gastroesophageal reflu x 08/15/2018 Gastrointestinal No nausea 08/15/2018 Gastrointestinal No vomiting 08/15/2018 Genitourinary/Nephrology No dysuria 08/15/2018 Genitourinary/Nephrology No nocturia 08/15/2018 Genitourinary/Nephrology No urinary incontinence 08/15/2018 Musculoskeletal stiffness 08/15/2018 Musculoskeletal No swelling 08/15/2018 Musculoskeletal back pain 08/15/2018 Musculoskeletal No muscle weakness 08/15/2018 Musculoskeletal No myalgias 08/15/2018 Dermatologic No rash Dermatologic No sores Dermatologic No scar Neurologic No dizziness 08/15/2018 Neurologic No headache 0 08/15/2018 Neurologic No neck pain 08/15/2018 Neurologic No syncope Psychiatric No anxiety 0 08/15/2018 Psychiatric No depression 08/15/2018 Constitutional recent illness 08/01/2018 Constitutional No chills 08/01/2018 Constitutional fatigue 0 08/01/2018 Constitutional No fever 08/01/2018 Constitutional No insomnia 08/01/2018 Constitutional malaise 0 08/01/2018 Eyes No blindness 2018 Eyes No vision change Ears/Nose/Throat/Neck No dental pain 08/01/2018 Ears/Nose/Throat/Neck No dizziness 08/01/2018 Ears/Nose/Throat/Neck No dysphagia 08/01/2018 Ears/Nose/Throat/Neck No headache 08/01/2018 Ears/Nose/Throat/Neck No hearing loss 08/01/2018 Ears/Nose/Throat/Neck No nasal allergies 08/01/2018 Ears/Nose/Throat/Neck No sore throat 08/01/2018 Ears/Nose/Throat/Neck No postnasal drip 08/01/2018 Ears/Nose/Throat/Neck No sinus congestion 08/01/2018 Cardiovascular No chest pain/pressure 08/01/2018 Cardiovascular edema 01/2019 Cardiovascular exercise intolerance 08/01/2018 Cardiovascular fatigue 0 08/01/2018 Cardiovascular No near-syncope/dizziness 08/01/2018 Respiratory No chest tightness 08/01/2018 Respiratory cough 2018 Respiratory No dyspnea on exertion 08/01/2018 Respiratory No dyspnea 0 08/01/2018 Respiratory No pedal edema 08/01/2018 Gastrointestinal No abdominal pain 08/01/2018 Gastrointestinal No constipation 08/01/2018 Gastrointestinal No diarrhea 08/01/2018 Gastrointestinal No gastroesophageal reflu x 08/01/2018 Gastrointestinal No nausea 08/01/2018 Gastrointestinal No vomiting 08/01/2018 Genitourinary/Nephrology No dysuria 08/01/2018 Genitourinary/Nephrology No nocturia 08/01/2018 Genitourinary/Nephrology No urinary incontinence 08/01/2018 Musculoskeletal stiffness 08/01/2018 Musculoskeletal No swelling 08/01/2018 Musculoskeletal No muscle weakness 08/01/2018 Musculoskeletal No myalgias 08/01/2018 Dermatologic No rash 01/2019 Dermatologic No sores Dermatologic No scar 01/2019 Neurologic No dizziness 08/01/2018 Neurologic No headache 0 08/01/2018 Neurologic No neck pain 08/01/2018 Neurologic No syncope Psychiatric No anxiety 0 08/01/2018 Psychiatric No depression 08/01/2018 Respiratory No productive sputum 08/01/2018 Musculoskeletal back pain 08/01/2018 Constitutional recent illness 04/20/2018 Constitutional fatigue 0 04/20/2018 Cardiovascular fatigue 0 04/20/2018 Respiratory cough 2017 Respiratory dyspnea on exertion 04/20/2018 Constitutional No chills 04/20/2018 Constitutional No fever 04/20/2018 Constitutional No insomnia 04/20/2018 Constitutional malaise 0 04/20/2018 Eyes No blindness 2017 Eyes No vision change Ears/Nose/Throat/Neck No dental pain 04/20/2018 Ears/Nose/Throat/Neck No dizziness 04/20/2018 Ears/Nose/Throat/Neck No dysphagia 04/20/2018 Ears/Nose/Throat/Neck No headache 04/20/2018 Ears/Nose/Throat/Neck No hearing loss 04/20/2018 Ears/Nose/Throat/Neck No nasal allergies 04/20/2018 Ears/Nose/Throat/Neck No sore throat 04/20/2018 Ears/Nose/Throat/Neck No postnasal drip 04/20/2018 Ears/Nose/Throat/Neck No sinus congestion 04/20/2018 Cardiovascular No chest pain/pressure 04/20/2018 Cardiovascular edema Cardiovascular exercise intolerance 04/20/2018 Cardiovascular No near-syncope/dizziness 04/20/2018 Respiratory No chest tightness 04/20/2018 Respiratory dyspnea 03/27 Respiratory pedal edema 04/20/2018 Gastrointestinal No abdominal pain 04/20/2018 Gastrointestinal No constipation 04/20/2018 Gastrointestinal No diarrhea 04/20/2018 Gastrointestinal No gastroesophageal reflu x 04/20/2018 Gastrointestinal No nausea 04/20/2018 Gastrointestinal No vomiting 04/20/2018 Genitourinary/Nephrology No dysuria 04/20/2018 Genitourinary/Nephrology No nocturia 04/20/2018 Genitourinary/Nephrology No urinary incontinence 04/20/2018 Musculoskeletal stiffness 04/20/2018 Musculoskeletal No swelling 04/20/2018 Musculoskeletal No muscle weakness 04/20/2018 Musculoskeletal No myalgias 04/20/2018 Dermatologic No rash Dermatologic No sores Dermatologic No scar Neurologic No dizziness 04/20/2018 Neurologic No headache 0 04/20/2018 Neurologic No neck pain 04/20/2018 Neurologic No syncope Psychiatric No anxiety 0 04/20/2018 Psychiatric No depression 04/20/2018 Constitutional No recent illness 02/09/2018 Constitutional No chills 02/09/2018 Constitutional No diaphoresis 02/09/2018 Constitutional No fever 02/09/2018 Eyes No eye erythema Ears/Nose/Throat/Neck No nasal discharge 02/09/2018 Cardiovascular No chest pain/pressure 02/09/2018 Cardiovascular No dyspnea 02/09/2018 Respiratory No cough Respiratory No dyspnea 0 02/09/2018 Neurologic No alteration of consciousness 02/09/2018 Neurologic No mental status change 02/09/2018 Constitutional recent illness 12/16/2017 Constitutional No chills 12/16/2017 Constitutional fatigue 0 12/16/2017 Constitutional No fever 12/16/2017 Constitutional No insomnia 12/16/2017 Constitutional malaise 0 12/16/2017 Eyes No blindness 2017 Eyes No vision change Ears/Nose/Throat/Neck No dental pain 12/16/2017 Ears/Nose/Throat/Neck No dizziness 12/16/2017 Ears/Nose/Throat/Neck No dysphagia 12/16/2017 Ears/Nose/Throat/Neck No headache 12/16/2017 Ears/Nose/Throat/Neck No hearing loss 12/16/2017 Ears/Nose/Throat/Neck No nasal allergies 12/16/2017 Ears/Nose/Throat/Neck No sore throat 12/16/2017 Ears/Nose/Throat/Neck No postnasal drip 12/16/2017 Ears/Nose/Throat/Neck No sinus congestion 12/16/2017 Cardiovascular No chest pain/pressure 12/16/2017 Cardiovascular edema Cardiovascular exercise intolerance 12/16/2017 Cardiovascular fatigue 0 12/16/2017 Cardiovascular No near-syncope/dizziness 12/16/2017 Respiratory No chest tightness 12/16/2017 Respiratory dyspnea on exertion 12/16/2017 Respiratory dyspnea 11/24 Respiratory pedal edema 12/16/2017 Gastrointestinal No abdominal pain 12/16/2017 Gastrointestinal No constipation 12/16/2017 Gastrointestinal No diarrhea 12/16/2017 Gastrointestinal No gastroesophageal reflu x 12/16/2017 Gastrointestinal No nausea 12/16/2017 Gastrointestinal No vomiting 12/16/2017 Genitourinary/Nephrology No dysuria 12/16/2017 Genitourinary/Nephrology No nocturia 12/16/2017 Genitourinary/Nephrology No urinary incontinence 12/16/2017 Musculoskeletal stiffness 12/16/2017 Musculoskeletal No swelling 12/16/2017 Musculoskeletal No muscle weakness 12/16/2017 Musculoskeletal No myalgias 12/16/2017 Dermatologic No rash Dermatologic No sores Dermatologic No scar Neurologic No dizziness 12/16/2017 Neurologic No headache 0 12/16/2017 Neurologic No neck pain 12/16/2017 Neurologic No syncope Psychiatric No anxiety 0 12/16/2017 Psychiatric No depression 12/16/2017 Constitutional No recent illness 08/23/2017 Constitutional No chills 08/23/2017 Constitutional fatigue 0 08/23/2017 Constitutional No fever 08/23/2017 Constitutional No insomnia 08/23/2017 Eyes No blindness 2017 Eyes No vision change Ears/Nose/Throat/Neck No dental pain 08/23/2017 Ears/Nose/Throat/Neck No dizziness 08/23/2017 Ears/Nose/Throat/Neck No dysphagia 08/23/2017 Ears/Nose/Throat/Neck No headache 08/23/2017 Ears/Nose/Throat/Neck No hearing loss 08/23/2017 Ears/Nose/Throat/Neck No nasal allergies 08/23/2017 Ears/Nose/Throat/Neck No sore throat 08/23/2017 Ears/Nose/Throat/Neck No postnasal drip 08/23/2017 Ears/Nose/Throat/Neck No sinus congestion 08/23/2017 Cardiovascular No chest pain/pressure 08/23/2017 Cardiovascular edema Cardiovascular exercise intolerance 08/23/2017 Cardiovascular fatigue 0 08/23/2017 Cardiovascular No near-syncope/dizziness 08/23/2017 Respiratory No chest tightness 08/23/2017 Respiratory dyspnea on exertion 08/23/2017 Respiratory dyspnea 07/27 Respiratory pedal edema 08/23/2017 Gastrointestinal No abdominal pain 08/23/2017 Gastrointestinal No constipation 08/23/2017 Gastrointestinal No diarrhea 08/23/2017 Gastrointestinal No gastroesophageal reflu x 08/23/2017 Gastrointestinal No nausea 08/23/2017 Gastrointestinal No vomiting 08/23/2017 Genitourinary/Nephrology No dysuria 08/23/2017 Genitourinary/Nephrology No nocturia 08/23/2017 Genitourinary/Nephrology No urinary incontinence 08/23/2017 Musculoskeletal stiffness 08/23/2017 Musculoskeletal No swelling 08/23/2017 Musculoskeletal No muscle weakness 08/23/2017 Musculoskeletal No myalgias 08/23/2017 Dermatologic No rash Dermatologic No sores Dermatologic No scar Neurologic No dizziness 08/23/2017 Neurologic No headache 0 08/23/2017 Neurologic No neck pain 08/23/2017 Neurologic No syncope Psychiatric No anxiety 0 08/23/2017 Psychiatric No depression 08/23/2017 Constitutional No recent illness 02/03/2017 Constitutional No chills 02/03/2017 Constitutional No diaphoresis 02/03/2017 Constitutional fatigue 0 02/03/2017 Constitutional No fever 02/03/2017 Eyes No eye erythema 06/2017 Ears/Nose/Throat/Neck No nasal discharge 02/03/2017 Cardiovascular No chest pain/pressure 02/03/2017 Cardiovascular fatigue 0 02/03/2017 Cardiovascular edema 06/2017 Cardiovascular palpitations 02/03/2017 Respiratory dyspnea on exertion 02/03/2017 Respiratory No cough 06/2017 Respiratory No chest congestion 02/03/2017 Neurologic No alteration of consciousness 02/03/2017 Neurologic No mental status change 02/03/2017 Constitutional recent illness 02/02/2017 Constitutional No chills 02/02/2017 Constitutional fatigue 0 02/02/2017 Constitutional No fever 02/02/2017 Constitutional No insomnia 02/02/2017 Constitutional malaise 0 02/02/2017 Eyes No blindness 2016 Eyes No vision change Ears/Nose/Throat/Neck No dental pain 02/02/2017 Ears/Nose/Throat/Neck No dizziness 02/02/2017 Ears/Nose/Throat/Neck No dysphagia 02/02/2017 Ears/Nose/Throat/Neck No headache 02/02/2017 Ears/Nose/Throat/Neck No hearing loss 02/02/2017 Ears/Nose/Throat/Neck No nasal allergies 02/02/2017 Ears/Nose/Throat/Neck No sore throat 02/02/2017 Ears/Nose/Throat/Neck No postnasal drip 02/02/2017 Ears/Nose/Throat/Neck No sinus congestion 02/02/2017 Cardiovascular No chest pain/pressure 02/02/2017 Cardiovascular edema 05/2017 Cardiovascular exercise intolerance 02/02/2017 Cardiovascular fatigue 0 02/02/2017 Cardiovascular No near-syncope/dizziness 02/02/2017 Respiratory No chest tightness 02/02/2017 Respiratory dyspnea on exertion 02/02/2017 Respiratory dyspnea 01/23 Respiratory pedal edema 02/02/2017 Gastrointestinal No abdominal pain 02/02/2017 Gastrointestinal No constipation 02/02/2017 Gastrointestinal No diarrhea 02/02/2017 Gastrointestinal No gastroesophageal reflu x 02/02/2017 Gastrointestinal No nausea 02/02/2017 Gastrointestinal No vomiting 02/02/2017 Genitourinary/Nephrology No dysuria 02/02/2017 Genitourinary/Nephrology No nocturia 02/02/2017 Genitourinary/Nephrology No urinary incontinence 02/02/2017 Musculoskeletal stiffness 02/02/2017 Musculoskeletal No swelling 02/02/2017 Musculoskeletal No muscle weakness 02/02/2017 Musculoskeletal No myalgias 02/02/2017 Dermatologic No rash 05/2017 Dermatologic No sores Dermatologic No scar 05/2017 Neurologic No dizziness 02/02/2017 Neurologic No headache 0 02/02/2017 Neurologic No neck pain 02/02/2017 Neurologic No syncope Psychiatric No anxiety 0 02/02/2017 Psychiatric No depression 02/02/2017 Constitutional recent illness 11/26/2016 Constitutional chills Constitutional No diaphoresis 11/26/2016 Constitutional fever 10/2016 Eyes No eye erythema 10/2016 Ears/Nose/Throat/Neck nasal allergies 11/26/2016 Ears/Nose/Throat/Neck nasal discharge 11/26/2016 Ears/Nose/Throat/Neck postnasal drip 11/26/2016 Ears/Nose/Throat/Neck sinus congestion 11/26/2016 Cardiovascular No chest pain/pressure 11/26/2016 Cardiovascular No dyspnea 11/26/2016 Respiratory cough 2016 Respiratory No dyspnea 0 11/26/2016 Gastrointestinal No constipation 11/26/2016 Gastrointestinal No diarrhea 11/26/2016 Gastrointestinal No nausea 11/26/2016 Gastrointestinal No vomiting 11/26/2016 Neurologic No alteration of consciousness 11/26/2016 Neurologic No mental status change 11/26/2016 Respiratory chest congestion 11/26/2016 Respiratory No productive sputum 11/26/2016 Respiratory dyspnea on exertion 11/26/2016 Constitutional No recent illness 10/07/2016 Constitutional No chills 10/07/2016 Constitutional No fatigue 10/07/2016 Constitutional No fever 10/07/2016 Constitutional No insomnia 10/07/2016 Constitutional No malaise 10/07/2016 Eyes No blindness 2016 Eyes No vision change Ears/Nose/Throat/Neck No dental pain 10/07/2016 Ears/Nose/Throat/Neck No dizziness 10/07/2016 Ears/Nose/Throat/Neck No dysphagia 10/07/2016 Ears/Nose/Throat/Neck No headache 10/07/2016 Ears/Nose/Throat/Neck No hearing loss 10/07/2016 Ears/Nose/Throat/Neck No nasal allergies 10/07/2016 Ears/Nose/Throat/Neck No sore throat 10/07/2016 Ears/Nose/Throat/Neck No postnasal drip 10/07/2016 Ears/Nose/Throat/Neck No sinus congestion 10/07/2016 Cardiovascular No chest pain/pressure 10/07/2016 Cardiovascular edema Cardiovascular exercise intolerance 10/07/2016 Cardiovascular fatigue 0 10/07/2016 Cardiovascular No near-syncope/dizziness 10/07/2016 Respiratory No chest tightness 10/07/2016 Respiratory dyspnea on exertion 10/07/2016 Respiratory dyspnea 09/23 Respiratory pedal edema 10/07/2016 Gastrointestinal No abdominal pain 10/07/2016 Gastrointestinal No constipation 10/07/2016 Gastrointestinal No diarrhea 10/07/2016 Gastrointestinal No gastroesophageal reflu x 10/07/2016 Gastrointestinal No nausea 10/07/2016 Gastrointestinal No vomiting 10/07/2016 Genitourinary/Nephrology No dysuria 10/07/2016 Genitourinary/Nephrology No nocturia 10/07/2016 Genitourinary/Nephrology No urinary incontinence 10/07/2016 Musculoskeletal stiffness 10/07/2016 Musculoskeletal No swelling 10/07/2016 Musculoskeletal No muscle weakness 10/07/2016 Musculoskeletal No myalgias 10/07/2016 Dermatologic No rash Dermatologic No sores Dermatologic No scar Neurologic No dizziness 10/07/2016 Neurologic No headache 0 10/07/2016 Neurologic No neck pain 10/07/2016 Neurologic No syncope Psychiatric No anxiety 0 10/07/2016 Psychiatric No depression 10/07/2016 Constitutional No recent illness 09/16/2016 Constitutional No chills 09/16/2016 Constitutional No fatigue 09/16/2016 Constitutional No fever 09/16/2016 Eyes No blindness 2016 Eyes No vision change Ears/Nose/Throat/Neck No nasal allergies 09/16/2016 Ears/Nose/Throat/Neck No nasal discharge 09/16/2016 Ears/Nose/Throat/Neck No postnasal drip 09/16/2016 Ears/Nose/Throat/Neck No sinus congestion 09/16/2016 Cardiovascular No chest pain/pressure 09/16/2016 Respiratory No cough Respiratory dyspnea on exertion 09/16/2016 Respiratory No dyspnea 0 09/16/2016 Gastrointestinal No abdominal pain 09/16/2016 Gastrointestinal No constipation 09/16/2016 Gastrointestinal No diarrhea 09/16/2016 Gastrointestinal No nausea 09/16/2016 Gastrointestinal No vomiting 09/16/2016 Dermatologic No sores Neurologic No alteration of consciousness 09/16/2016 Neurologic No mental status change 09/16/2016 Musculoskeletal joint complaint 09/16/2016 Dermatologic rash 2016 Constitutional No recent illness 09/07/2016 Constitutional No chills 09/07/2016 Constitutional No fatigue 09/07/2016 Constitutional No fever 09/07/2016 Eyes No eye erythema Eyes No vision change Ears/Nose/Throat/Neck No nasal allergies 09/07/2016 Ears/Nose/Throat/Neck No postnasal drip 09/07/2016 Ears/Nose/Throat/Neck No sinus congestion 09/07/2016 Cardiovascular No chest pain/pressure 09/07/2016 Respiratory dyspnea on exertion 09/07/2016 Respiratory No dyspnea 0 09/07/2016 Gastrointestinal No abdominal pain 09/07/2016 Gastrointestinal No constipation 09/07/2016 Gastrointestinal No diarrhea 09/07/2016 Gastrointestinal No nausea 09/07/2016 Gastrointestinal No vomiting 09/07/2016 Dermatologic No rash Dermatologic No sores Ears/Nose/Throat/Neck No nasal discharge 09/07/2016 Respiratory No cough Musculoskeletal joint complaint 09/07/2016 Neurologic No alteration of consciousness 09/07/2016 Neurologic No mental status change 09/07/2016 Constitutional No recent illness 03/05/2016 Constitutional No chills 03/05/2016 Constitutional No fatigue 03/05/2016 Constitutional No fever 03/05/2016 Constitutional No insomnia 03/05/2016 Constitutional No malaise 03/05/2016 Eyes No blindness 2015 Eyes No vision change Ears/Nose/Throat/Neck No dental pain 03/05/2016 Ears/Nose/Throat/Neck No dizziness 03/05/2016 Ears/Nose/Throat/Neck No dysphagia 03/05/2016 Ears/Nose/Throat/Neck No headache 03/05/2016 Ears/Nose/Throat/Neck No hearing loss 03/05/2016 Ears/Nose/Throat/Neck No nasal allergies 03/05/2016 Ears/Nose/Throat/Neck No postnasal drip 03/05/2016 Ears/Nose/Throat/Neck No sinus congestion 03/05/2016 Ears/Nose/Throat/Neck No sore throat 03/05/2016 Cardiovascular No chest pain/pressure 03/05/2016 Cardiovascular edema 05/2016 Cardiovascular exercise intolerance 03/05/2016 Cardiovascular fatigue 0 03/05/2016 Cardiovascular No near-syncope/dizziness 03/05/2016 Respiratory No chest tightness 03/05/2016 Respiratory No cough 05/2016 Respiratory dyspnea on exertion 03/05/2016 Respiratory No dyspnea 0 03/05/2016 Respiratory No pedal edema 03/05/2016 Gastrointestinal No abdominal pain 03/05/2016 Gastrointestinal No constipation 03/05/2016 Gastrointestinal No diarrhea 03/05/2016 Gastrointestinal No gastroesophageal reflu x 03/05/2016 Gastrointestinal No nausea 03/05/2016 Gastrointestinal No vomiting 03/05/2016 Genitourinary/Nephrology No dysuria 03/05/2016 Genitourinary/Nephrology No nocturia 03/05/2016 Genitourinary/Nephrology No urinary incontinence 03/05/2016 Musculoskeletal stiffness 03/05/2016 Musculoskeletal No swelling 03/05/2016 Musculoskeletal back pain 03/05/2016 Musculoskeletal No muscle weakness 03/05/2016 Musculoskeletal No myalgias 03/05/2016 Dermatologic No rash 05/2016 Dermatologic No sores Dermatologic No scar 05/2016 Neurologic No dizziness 03/05/2016 Neurologic No headache 0 03/05/2016 Neurologic No neck pain 03/05/2016 Neurologic No syncope Psychiatric No anxiety 0 03/05/2016 Psychiatric No depression 03/05/2016 Constitutional No recent illness 12/04/2015 Constitutional No chills 12/04/2015 Constitutional No fatigue 12/04/2015 Constitutional No fever 12/04/2015 Constitutional No insomnia 12/04/2015 Constitutional No malaise 12/04/2015 Eyes No blindness 2015 Eyes No vision change Ears/Nose/Throat/Neck No dental pain 12/04/2015 Ears/Nose/Throat/Neck No dizziness 12/04/2015 Ears/Nose/Throat/Neck No dysphagia 12/04/2015 Ears/Nose/Throat/Neck No headache 12/04/2015 Ears/Nose/Throat/Neck No hearing loss 12/04/2015 Ears/Nose/Throat/Neck No nasal allergies 12/04/2015 Ears/Nose/Throat/Neck No postnasal drip 12/04/2015 Ears/Nose/Throat/Neck No sinus congestion 12/04/2015 Ears/Nose/Throat/Neck No sore throat 12/04/2015 Cardiovascular No chest pain/pressure 12/04/2015 Cardiovascular edema 05/2016 Cardiovascular exercise intolerance 12/04/2015 Cardiovascular fatigue 0 12/04/2015 Cardiovascular No near-syncope/dizziness 12/04/2015 Respiratory No chest tightness 12/04/2015 Respiratory No cough 05/2016 Respiratory dyspnea on exertion 12/04/2015 Respiratory No dyspnea 0 12/04/2015 Respiratory No pedal edema 12/04/2015 Gastrointestinal No abdominal pain 12/04/2015 Gastrointestinal No constipation 12/04/2015 Gastrointestinal No diarrhea 12/04/2015 Gastrointestinal No gastroesophageal reflu x 12/04/2015 Gastrointestinal No nausea 12/04/2015 Gastrointestinal No vomiting 12/04/2015 Genitourinary/Nephrology No dysuria 12/04/2015 Genitourinary/Nephrology No nocturia 12/04/2015 Genitourinary/Nephrology No urinary incontinence 12/04/2015 Musculoskeletal stiffness 12/04/2015 Musculoskeletal No swelling 12/04/2015 Musculoskeletal back pain 12/04/2015 Musculoskeletal No muscle weakness 12/04/2015 Musculoskeletal No myalgias 12/04/2015 Dermatologic No rash 05/2016 Dermatologic No sores Dermatologic No scar 05/2016 Neurologic No dizziness 12/04/2015 Neurologic No headache 0 12/04/2015 Neurologic No neck pain 12/04/2015 Neurologic No syncope Psychiatric No anxiety 0 12/04/2015 Psychiatric No depression 12/04/2015 Constitutional No recent illness 11/18/2015 Constitutional No chills 11/18/2015 Constitutional No fatigue 11/18/2015 Constitutional No fever 11/18/2015 Constitutional No insomnia 11/18/2015 Constitutional No malaise 11/18/2015 Eyes No blindness 2015 Eyes No vision change Ears/Nose/Throat/Neck No dental pain 11/18/2015 Ears/Nose/Throat/Neck No dizziness 11/18/2015 Ears/Nose/Throat/Neck No dysphagia 11/18/2015 Ears/Nose/Throat/Neck No headache 11/18/2015 Ears/Nose/Throat/Neck No hearing loss 11/18/2015 Ears/Nose/Throat/Neck No nasal allergies 11/18/2015 Ears/Nose/Throat/Neck No postnasal drip 11/18/2015 Ears/Nose/Throat/Neck No sinus congestion 11/18/2015 Ears/Nose/Throat/Neck No sore throat 11/18/2015 Cardiovascular No chest pain/pressure 11/18/2015 Cardiovascular edema Cardiovascular exercise intolerance 11/18/2015 Cardiovascular fatigue 0 11/18/2015 Cardiovascular No near-syncope/dizziness 11/18/2015 Respiratory No chest tightness 11/18/2015 Respiratory dyspnea on exertion 11/18/2015 Respiratory dyspnea 10/25 Respiratory pedal edema 11/18/2015 Gastrointestinal No abdominal pain 11/18/2015 Gastrointestinal No constipation 11/18/2015 Gastrointestinal No diarrhea 11/18/2015 Gastrointestinal No gastroesophageal reflu x 11/18/2015 Gastrointestinal No nausea 11/18/2015 Gastrointestinal No vomiting 11/18/2015 Genitourinary/Nephrology No dysuria 11/18/2015 Genitourinary/Nephrology No nocturia 11/18/2015 Genitourinary/Nephrology No urinary incontinence 11/18/2015 Musculoskeletal stiffness 11/18/2015 Musculoskeletal No swelling 11/18/2015 Musculoskeletal No muscle weakness 11/18/2015 Musculoskeletal No myalgias 11/18/2015 Dermatologic No rash Dermatologic No sores Dermatologic No scar Neurologic No dizziness 11/18/2015 Neurologic No headache 0 11/18/2015 Neurologic No neck pain 11/18/2015 Neurologic No syncope Psychiatric No anxiety 0 11/18/2015 Psychiatric No depression 11/18/2015 Constitutional No recent illness 09/30/2015 Constitutional No chills 09/30/2015 Constitutional No fatigue 09/30/2015 Constitutional No fever 09/30/2015 Constitutional No insomnia 09/30/2015 Constitutional No malaise 09/30/2015 Eyes No blindness 2015 Eyes No vision change Ears/Nose/Throat/Neck No dental pain 09/30/2015 Ears/Nose/Throat/Neck No dizziness 09/30/2015 Ears/Nose/Throat/Neck No dysphagia 09/30/2015 Ears/Nose/Throat/Neck No headache 09/30/2015 Ears/Nose/Throat/Neck No hearing loss 09/30/2015 Ears/Nose/Throat/Neck No nasal allergies 09/30/2015 Ears/Nose/Throat/Neck No sore throat 09/30/2015 Ears/Nose/Throat/Neck No postnasal drip 09/30/2015 Ears/Nose/Throat/Neck No sinus congestion 09/30/2015 Cardiovascular No chest pain/pressure 09/30/2015 Cardiovascular edema 01/2016 Cardiovascular exercise intolerance 09/30/2015 Cardiovascular fatigue 0 09/30/2015 Cardiovascular No near-syncope/dizziness 09/30/2015 Respiratory No chest tightness 09/30/2015 Respiratory No cough 01/2016 Respiratory No dyspnea 0 09/30/2015 Respiratory No pedal edema 09/30/2015 Gastrointestinal No abdominal pain 09/30/2015 Gastrointestinal No constipation 09/30/2015 Gastrointestinal No diarrhea 09/30/2015 Gastrointestinal No gastroesophageal reflu x 09/30/2015 Gastrointestinal No nausea 09/30/2015 Gastrointestinal No vomiting 09/30/2015 Genitourinary/Nephrology No dysuria 09/30/2015 Genitourinary/Nephrology No nocturia 09/30/2015 Genitourinary/Nephrology No urinary incontinence 09/30/2015 Musculoskeletal stiffness 09/30/2015 Musculoskeletal No swelling 09/30/2015 Musculoskeletal back pain 09/30/2015 Musculoskeletal No muscle weakness 09/30/2015 Musculoskeletal No myalgias 09/30/2015 Dermatologic No rash 01/2016 Dermatologic No sores Dermatologic No scar 01/2016 Neurologic No dizziness 09/30/2015 Neurologic No headache 0 09/30/2015 Neurologic No neck pain 09/30/2015 Neurologic No syncope Psychiatric No anxiety 0 09/30/2015 Psychiatric No depression 09/30/2015 Respiratory dyspnea on exertion 09/30/2015 Constitutional No recent illness 09/09/2015 Constitutional No anorexia 09/09/2015 Constitutional No night sweats 09/09/2015 Constitutional No chills 09/09/2015 Constitutional No diaphoresis 09/09/2015 Constitutional No fatigue 09/09/2015 Constitutional No fever 09/09/2015 Constitutional No insomnia 09/09/2015 Constitutional No malaise 09/09/2015 Constitutional No weight loss 09/09/2015 Constitutional No weight gain 09/09/2015 Constitutional No recent illness 08/28/2015 Dermatologic rash 2015 Dermatologic sores 08/28 Cardiovascular No chest pain/pressure 08/28/2015 Cardiovascular No dyspnea 08/28/2015 Cardiovascular No edema 08/28/2015 Cardiovascular No exercise intolerance 08/28/2015 Cardiovascular No fatigue 08/28/2015 Cardiovascular No near-syncope/dizziness 08/28/2015 Respiratory No chest tightness 08/28/2015 Respiratory No cigarette smoking 08/28/2015 Respiratory No cough 09/2015 Respiratory No dyspnea 0 08/28/2015 Respiratory No pedal edema 08/28/2015 Respiratory No snoring 0 08/28/2015 Respiratory No wheezing 08/28/2015 Constitutional No recent illness 07/09/2015 Constitutional No chills 07/09/2015 Constitutional No fatigue 07/09/2015 Constitutional No fever 07/09/2015 Constitutional No insomnia 07/09/2015 Constitutional No malaise 07/09/2015 Eyes No blindness 2014 Eyes No vision change Ears/Nose/Throat/Neck No dental pain 07/09/2015 Ears/Nose/Throat/Neck No dizziness 07/09/2015 Ears/Nose/Throat/Neck No dysphagia 07/09/2015 Ears/Nose/Throat/Neck No headache 07/09/2015 Ears/Nose/Throat/Neck No hearing loss 07/09/2015 Ears/Nose/Throat/Neck No nasal allergies 07/09/2015 Ears/Nose/Throat/Neck No sore throat 07/09/2015 Ears/Nose/Throat/Neck No postnasal drip 07/09/2015 Ears/Nose/Throat/Neck No sinus congestion 07/09/2015 Cardiovascular No chest pain/pressure 07/09/2015 Cardiovascular No dyspnea 07/09/2015 Cardiovascular No edema 07/09/2015 Cardiovascular No exercise intolerance 07/09/2015 Cardiovascular No fatigue 07/09/2015 Cardiovascular No near-syncope/dizziness 07/09/2015 Respiratory No chest tightness 07/09/2015 Respiratory No cough Respiratory No dyspnea 1 09/09/2014 Respiratory No pedal edema 07/09/2015 Gastrointestinal No abdominal pain 07/09/2015 Gastrointestinal No constipation 07/09/2015 Gastrointestinal No diarrhea 07/09/2015 Gastrointestinal No gastroesophageal reflu x 07/09/2015 Gastrointestinal No nausea 07/09/2015 Gastrointestinal No vomiting 07/09/2015 Genitourinary/Nephrology No dysuria 07/09/2015 Genitourinary/Nephrology No nocturia 07/09/2015 Genitourinary/Nephrology No urinary incontinence 07/09/2015 Musculoskeletal stiffness 07/09/2015 Musculoskeletal No swelling 07/09/2015 Musculoskeletal back pain 07/09/2015 Musculoskeletal No muscle weakness 07/09/2015 Musculoskeletal No myalgias 07/09/2015 Dermatologic No rash Dermatologic No sores Dermatologic No scar Neurologic No dizziness 07/09/2015 Neurologic No headache 1 09/09/2014 Neurologic No neck pain 07/09/2015 Neurologic No syncope Psychiatric No anxiety 1 09/09/2014 Psychiatric No depression 07/09/2015 Constitutional No recent illness 03/06/2015 Constitutional No chills 03/06/2015 Constitutional No fatigue 03/06/2015 Constitutional No fever 03/06/2015 Constitutional No insomnia 03/06/2015 Constitutional No malaise 03/06/2015 Eyes No blindness 2014 Eyes No vision change Ears/Nose/Throat/Neck No dental pain 03/06/2015 Ears/Nose/Throat/Neck No dizziness 03/06/2015 Ears/Nose/Throat/Neck No dysphagia 03/06/2015 Ears/Nose/Throat/Neck No headache 03/06/2015 Ears/Nose/Throat/Neck No hearing loss 03/06/2015 Ears/Nose/Throat/Neck No nasal allergies 03/06/2015 Ears/Nose/Throat/Neck No sore throat 03/06/2015 Ears/Nose/Throat/Neck No postnasal drip 03/06/2015 Ears/Nose/Throat/Neck No sinus congestion 03/06/2015 Cardiovascular No chest pain/pressure 03/06/2015 Cardiovascular No dyspnea 03/06/2015 Cardiovascular No edema 03/06/2015 Cardiovascular No exercise intolerance 03/06/2015 Cardiovascular No fatigue 03/06/2015 Cardiovascular No near-syncope/dizziness 03/06/2015 Respiratory No chest tightness 03/06/2015 Respiratory No cough 06/2015 Respiratory No dyspnea 0 03/06/2015 Respiratory No pedal edema 03/06/2015 Gastrointestinal No abdominal pain 03/06/2015 Gastrointestinal No constipation 03/06/2015 Gastrointestinal No diarrhea 03/06/2015 Gastrointestinal No gastroesophageal reflu x 03/06/2015 Gastrointestinal No nausea 03/06/2015 Gastrointestinal No vomiting 03/06/2015 Genitourinary/Nephrology No dysuria 03/06/2015 Genitourinary/Nephrology No nocturia 03/06/2015 Genitourinary/Nephrology No urinary incontinence 03/06/2015 Musculoskeletal stiffness 03/06/2015 Musculoskeletal No swelling 03/06/2015 Musculoskeletal No muscle weakness 03/06/2015 Musculoskeletal No myalgias 03/06/2015 Dermatologic No rash 06/2015 Dermatologic No sores Dermatologic No scar 06/2015 Neurologic No dizziness 03/06/2015 Neurologic No headache 0 03/06/2015 Neurologic No neck pain 03/06/2015 Neurologic No syncope Psychiatric No anxiety 0 03/06/2015 Psychiatric No depression 03/06/2015 Musculoskeletal back pain 03/06/2015 Physical Exam Exam Name System Name It em Name Status Result Effective Dates Notes Full Exam - General 1994 Constitutional general appearance Development: appears stated age 0803/17/2019 None Full Exam - General 1994 Constitutional general appearance Overall: well developed 03/17/2019 None Full Exam - General 1994 Constitutional general appearance Overall: in no acute distress 03/17/2019 None Full Exam - General 1994 Constitutional general appearance Overall: well nourished 03/17/2019 None Full Exam - General 1994 Constitutional general appearance Hygiene/Attention to Grooming: good hygiene 03/17/2019 None Full Exam - General 1994 Eyes conjunctiva/eyelids Overall: conjunctiva clear 03/17/2019 None Full Exam - General 1994 Eyes conjunctiva/eyelids Overall: cornea clear 03/17/2019 None Full Exam - General 1994 Eyes conjunctiva/eyelids Overall: eyelids normal 03/17/2019 None Full Exam - General 1994 Eyes pupils and irises Overall: pupils equal, round, reactive to light and accomodation 03/17/2019 None Full Exam - General 1994 Ears/Nose/Throat otoscopic exam Overall: external auditory canals clear 03/17/2019 None Full Exam - General 1994 Ears/Nose/Throat otoscopic exam Overall: tympanic membranes clear 03/17/2019 None Full Exam - General 1994 Ears/Nose/Throat lips/teeth/gingiva Overall: benign lips 03/17/2019 None Full Exam - General 1994 Ears/Nose/Throat lips/teeth/gingiva Overall: normal dentition 03/17/2019 None Full Exam - General 1994 Ears/Nose/Throat oral cavity/pharynx/larynx Overall: oral mucosa clear 03/17/2019 None Full Exam - General 1994 Ears/Nose/Throat oral cavity/pharynx/larynx Overall: oropharyngeal mucosa clear 03/17/2019 None Full Exam - General 1994 Ears/Nose/Throat oral cavity/pharynx/larynx Overall: hypopharynx benign 03/17/2019 None Full Exam - General 1994 Ears/Nose/Throat oral cavity/pharynx/larynx Overall: no masses 03/17/2019 None Full Exam - General 1994 Respiratory auscultation Overall: breath sounds clear bilaterally 03/17/2019 None Full Exam - General 1994 Respiratory respiratory effort/rhythm Overall: no retractions 03/17/2019 None Full Exam - General 1994 Respiratory respiratory effort/rhythm Overall: normal rate 03/17/2019 None Full Exam - General 1994 Cardiovascular extremities Overall: no clubbing 03/17/2019 None Full Exam - General 1994 Cardiovascular extremities Edema present: pitting 03/17/2019 None Full Exam - General 1994 Cardiovascular extremities Edema present: severity 1+ - 4+: trace to 1+ 03/17/2019 None Full Exam - General 1994 Cardiovascular auscultation of heart Overall: regular rate 03/17/2019 None Full Exam - General 1994 Cardiovascular auscultation of heart Overall: normal heart sounds 03/17/2019 None Full Exam - General 1994 Abdomen abdominal exam Overall: no tenderness 03/17/2019 None Full Exam - General 1994 Abdomen abdominal exam Overall: normal bowel sounds 03/17/2019 None Full Exam - General 1994 Lymphatic neck nodes Overall: anterior cervical chain benign 03/17/2019 None Full Exam - General 1994 Lymphatic neck nodes Overall: posterior cervical chain benign 03/17/2019 None Full Exam - General 1994 Musculoskeletal lower extremity Inspection - knee: Right swelling -resolved 03/17/2019 None Full Exam - General 1994 Musculoskeletal lower extremity Palpation - knee: tender joint line 03/17/2019 None Full Exam - General 1994 Musculoskeletal spine, ribs and pelvis Overall: spine benign 03/17/2019 None Full Exam - General 1994 Musculoskeletal spine, ribs and pelvis Overall: sacroiliac joint benign 03/17/2019 None Full Exam - General 1994 Musculoskeletal spine, ribs and pelvis Overall: good posture 03/17/2019 None Full Exam - General 1994 Musculoskeletal head and neck Overall: head atraumatic 03/17/2019 None Full Exam - General 1994 Musculoskeletal head and neck Overall: cervical spine benign 03/17/2019 None Full Exam - General 1994 Neurologic deep tendon reflexes Overall: deep tendon reflexes intact 03/17/2019 None Full Exam - General 1994 Neurologic cranial nerves Overall: crainial nerves 2 - 12 grossly intact 03/17/2019 None Full Exam - General 1994 Psychiatric orientation/consciousness Overall: oriented to person, place and time 03/17/2019 None Full Exam - General 1994 Psychiatric mood and affect Overall: normal mood and affect 03/17/2019 None Full Exam - General 1994 Constitutional general appearance Development: appears stated age 0803/09/2019 None Full Exam - General 1994 Constitutional general appearance Overall: well developed 03/09/2019 None Full Exam - General 1994 Constitutional general appearance Overall: in no acute distress 03/09/2019 None Full Exam - General 1994 Constitutional general appearance Overall: well nourished 03/09/2019 None Full Exam - General 1994 Constitutional general appearance Hygiene/Attention to Grooming: good hygiene 03/09/2019 None Full Exam - General 1994 Eyes conjunctiva/eyelids Overall: conjunctiva clear 03/09/2019 None Full Exam - General 1994 Eyes conjunctiva/eyelids Overall: cornea clear 03/09/2019 None Full Exam - General 1994 Eyes conjunctiva/eyelids Overall: eyelids normal 03/09/2019 None Full Exam - General 1994 Eyes pupils and irises Overall: pupils equal, round, reactive to light and accomodation 03/09/2019 None Full Exam - General 1994 Ears/Nose/Throat otoscopic exam Overall: external auditory canals clear 03/09/2019 None Full Exam - General 1994 Ears/Nose/Throat otoscopic exam Overall: tympanic membranes clear 03/09/2019 None Full Exam - General 1994 Ears/Nose/Throat lips/teeth/gingiva Overall: benign lips 03/09/2019 None Full Exam - General 1994 Ears/Nose/Throat lips/teeth/gingiva Overall: normal dentition 03/09/2019 None Full Exam - General 1994 Ears/Nose/Throat oral cavity/pharynx/larynx Overall: oral mucosa clear 03/09/2019 None Full Exam - General 1994 Ears/Nose/Throat oral cavity/pharynx/larynx Overall: oropharyngeal mucosa clear 03/09/2019 None Full Exam - General 1994 Ears/Nose/Throat oral cavity/pharynx/larynx Overall: hypopharynx benign 03/09/2019 None Full Exam - General 1994 Ears/Nose/Throat oral cavity/pharynx/larynx Overall: no masses 03/09/2019 None Full Exam - General 1994 Respiratory auscultation Overall: breath sounds clear bilaterally 03/09/2019 None Full Exam - General 1994 Respiratory respiratory effort/rhythm Overall: no retractions 03/09/2019 None Full Exam - General 1994 Respiratory respiratory effort/rhythm Overall: normal rate 03/09/2019 None Full Exam - General 1994 Cardiovascular extremities Overall: no clubbing 03/09/2019 None Full Exam - General 1994 Cardiovascular extremities Edema present: pitting 03/09/2019 None Full Exam - General 1994 Cardiovascular extremities Edema present: severity 1+ - 4+: 2+ 03/09/2019 None Full Exam - General 1994 Cardiovascular auscultation of heart Overall: regular rate 03/09/2019 None Full Exam - General 1994 Cardiovascular auscultation of heart Overall: normal heart sounds 03/09/2019 None Full Exam - General 1994 Abdomen abdominal exam Overall: no tenderness 03/09/2019 None Full Exam - General 1994 Abdomen abdominal exam Overall: normal bowel sounds 03/09/2019 None Full Exam - General 1994 Lymphatic neck nodes Overall: anterior cervical chain benign 03/09/2019 None Full Exam - General 1994 Lymphatic neck nodes Overall: posterior cervical chain benign 03/09/2019 None Full Exam - General 1994 Musculoskeletal spine, ribs and pelvis Overall: spine benign 03/09/2019 None Full Exam - General 1994 Musculoskeletal spine, ribs and pelvis Overall: sacroiliac joint benign 03/09/2019 None Full Exam - General 1994 Musculoskeletal spine, ribs and pelvis Overall: good posture 03/09/2019 None Full Exam - General 1994 Musculoskeletal head and neck Overall: head atraumatic 03/09/2019 None Full Exam - General 1994 Musculoskeletal head and neck Overall: cervical spine benign 03/09/2019 None Full Exam - General 1994 Neurologic deep tendon reflexes Overall: deep tendon reflexes intact 03/09/2019 None Full Exam - General 1994 Neurologic cranial nerves Overall: crainial nerves 2 - 12 grossly intact 03/09/2019 None Full Exam - General 1994 Psychiatric orientation/consciousness Overall: oriented to person, place and time 03/09/2019 None Full Exam - General 1994 Psychiatric mood and affect Overall: normal mood and affect 03/09/2019 None Full Exam - General 1994 Musculoskeletal lower extremity Inspection - knee: swelling 03/09/2019 None Full Exam - General 1994 Musculoskeletal lower extremity Palpation - knee: tender joint line 03/09/2019 None Full Exam - General 1994 Constitutional general appearance Development: appears stated age 0802/23/2019 None Full Exam - General 1994 Constitutional general appearance Overall: well developed 02/23/2019 None Full Exam - General 1994 Constitutional general appearance Overall: in no acute distress 02/23/2019 None Full Exam - General 1994 Constitutional general appearance Overall: well nourished 02/23/2019 None Full Exam - General 1994 Constitutional general appearance Hygiene/Attention to Grooming: good hygiene 02/23/2019 None Full Exam - General 1994 Eyes conjunctiva/eyelids Overall: conjunctiva clear 02/23/2019 None Full Exam - General 1994 Eyes conjunctiva/eyelids Overall: cornea clear 02/23/2019 None Full Exam - General 1994 Eyes conjunctiva/eyelids Overall: eyelids normal 02/23/2019 None Full Exam - General 1994 Eyes pupils and irises Overall: pupils equal, round, reactive to light and accomodation 02/23/2019 None Full Exam - General 1994 Ears/Nose/Throat otoscopic exam Overall: external auditory canals clear 02/23/2019 None Full Exam - General 1994 Ears/Nose/Throat otoscopic exam Overall: tympanic membranes clear 02/23/2019 None Full Exam - General 1994 Ears/Nose/Throat lips/teeth/gingiva Overall: benign lips 02/23/2019 None Full Exam - General 1994 Ears/Nose/Throat lips/teeth/gingiva Overall: normal dentition 02/23/2019 None Full Exam - General 1994 Ears/Nose/Throat oral cavity/pharynx/larynx Overall: oral mucosa clear 02/23/2019 None Full Exam - General 1994 Ears/Nose/Throat oral cavity/pharynx/larynx Overall: oropharyngeal mucosa clear 02/23/2019 None Full Exam - General 1994 Ears/Nose/Throat oral cavity/pharynx/larynx Overall: hypopharynx benign 02/23/2019 None Full Exam - General 1994 Ears/Nose/Throat oral cavity/pharynx/larynx Overall: no masses 02/23/2019 None Full Exam - General 1994 Respiratory auscultation Overall: breath sounds clear bilaterally 02/23/2019 None Full Exam - General 1994 Respiratory respiratory effort/rhythm Overall: no retractions 02/23/2019 None Full Exam - General 1994 Respiratory respiratory effort/rhythm Overall: normal rate 02/23/2019 None Full Exam - General 1994 Cardiovascular extremities Overall: no clubbing 02/23/2019 None Full Exam - General 1994 Cardiovascular extremities Edema present: pitting 02/23/2019 None Full Exam - General 1994 Cardiovascular auscultation of heart Overall: regular rate 02/23/2019 None Full Exam - General 1994 Cardiovascular auscultation of heart Overall: normal heart sounds 02/23/2019 None Full Exam - General 1994 Abdomen abdominal exam Overall: no tenderness 02/23/2019 None Full Exam - General 1994 Abdomen abdominal exam Overall: normal bowel sounds 02/23/2019 None Full Exam - General 1994 Lymphatic neck nodes Overall: anterior cervical chain benign 02/23/2019 None Full Exam - General 1994 Lymphatic neck nodes Overall: posterior cervical chain benign 02/23/2019 None Full Exam - General 1994 Musculoskeletal spine, ribs and pelvis Overall: spine benign 02/23/2019 None Full Exam - General 1994 Musculoskeletal spine, ribs and pelvis Overall: sacroiliac joint benign 02/23/2019 None Full Exam - General 1994 Musculoskeletal spine, ribs and pelvis Overall: good posture 02/23/2019 None Full Exam - General 1994 Musculoskeletal head and neck Overall: head atraumatic 02/23/2019 None Full Exam - General 1994 Musculoskeletal head and neck Overall: cervical spine benign 02/23/2019 None Full Exam - General 1994 Neurologic deep tendon reflexes Overall: deep tendon reflexes intact 02/23/2019 None Full Exam - General 1994 Neurologic cranial nerves Overall: crainial nerves 2 - 12 grossly intact 02/23/2019 None Full Exam - General 1994 Psychiatric orientation/consciousness Overall: oriented to person, place and time 02/23/2019 None Full Exam - General 1994 Psychiatric mood and affect Overall: normal mood and affect 02/23/2019 None Full Exam - General 1994 Cardiovascular extremities Edema present: severity 1+ - 4+: 2+ 02/23/2019 None Full Exam - General 1994 Constitutional general appearance Development: appears stated age 0702/14/2019 None Full Exam - General 1994 Constitutional general appearance Overall: well developed 02/14/2019 None Full Exam - General 1994 Constitutional general appearance Overall: in no acute distress 02/14/2019 None Full Exam - General 1994 Constitutional general appearance Overall: well nourished 02/14/2019 None Full Exam - General 1994 Constitutional general appearance Hygiene/Attention to Grooming: good hygiene 02/14/2019 None Full Exam - General 1994 Eyes conjunctiva/eyelids Overall: conjunctiva clear 02/14/2019 None Full Exam - General 1994 Eyes conjunctiva/eyelids Overall: cornea clear 02/14/2019 None Full Exam - General 1994 Eyes conjunctiva/eyelids Overall: eyelids normal 02/14/2019 None Full Exam - General 1994 Eyes pupils and irises Overall: pupils equal, round, reactive to light and accomodation 02/14/2019 None Full Exam - General 1994 Ears/Nose/Throat otoscopic exam Overall: external auditory canals clear 02/14/2019 None Full Exam - General 1994 Ears/Nose/Throat otoscopic exam Overall: tympanic membranes clear 02/14/2019 None Full Exam - General 1994 Ears/Nose/Throat lips/teeth/gingiva Overall: benign lips 02/14/2019 None Full Exam - General 1994 Ears/Nose/Throat lips/teeth/gingiva Overall: normal dentition 02/14/2019 None Full Exam - General 1994 Ears/Nose/Throat oral cavity/pharynx/larynx Overall: oral mucosa clear 02/14/2019 None Full Exam - General 1994 Ears/Nose/Throat oral cavity/pharynx/larynx Overall: oropharyngeal mucosa clear 02/14/2019 None Full Exam - General 1994 Ears/Nose/Throat oral cavity/pharynx/larynx Overall: hypopharynx benign 02/14/2019 None Full Exam - General 1994 Ears/Nose/Throat oral cavity/pharynx/larynx Overall: no masses 02/14/2019 None Full Exam - General 1994 Respiratory auscultation Overall: breath sounds clear bilaterally 02/14/2019 None Full Exam - General 1994 Respiratory respiratory effort/rhythm Overall: no retractions 02/14/2019 None Full Exam - General 1994 Respiratory respiratory effort/rhythm Overall: normal rate 02/14/2019 None Full Exam - General 1994 Cardiovascular extremities Overall: no clubbing 02/14/2019 None Full Exam - General 1994 Cardiovascular extremities Edema present: pitting 02/14/2019 None Full Exam - General 1994 Cardiovascular extremities Edema present: severity 1+ - 4+: 1+ 02/14/2019 None Full Exam - General 1994 Cardiovascular auscultation of heart Overall: regular rate 02/14/2019 None Full Exam - General 1994 Cardiovascular auscultation of heart Overall: normal heart sounds 02/14/2019 None Full Exam - General 1994 Abdomen abdominal exam Overall: no tenderness 02/14/2019 None Full Exam - General 1994 Abdomen abdominal exam Overall: normal bowel sounds 02/14/2019 None Full Exam - General 1994 Lymphatic neck nodes Overall: anterior cervical chain benign 02/14/2019 None Full Exam - General 1994 Lymphatic neck nodes Overall: posterior cervical chain benign 02/14/2019 None Full Exam - General 1994 Musculoskeletal spine, ribs and pelvis Overall: spine benign 02/14/2019 None Full Exam - General 1994 Musculoskeletal spine, ribs and pelvis Overall: sacroiliac joint benign 02/14/2019 None Full Exam - General 1994 Musculoskeletal spine, ribs and pelvis Overall: good posture 02/14/2019 None Full Exam - General 1994 Musculoskeletal head and neck Overall: head atraumatic 02/14/2019 None Full Exam - General 1994 Musculoskeletal head and neck Overall: cervical spine benign 02/14/2019 None Full Exam - General 1994 Neurologic deep tendon reflexes Overall: deep tendon reflexes intact 02/14/2019 None Full Exam - General 1994 Neurologic cranial nerves Overall: crainial nerves 2 - 12 grossly intact 02/14/2019 None Full Exam - General 1994 Psychiatric orientation/consciousness Overall: oriented to person, place and time 02/14/2019 None Full Exam - General 1994 Psychiatric mood and affect Overall: normal mood and affect 02/14/2019 None Full Exam - General 1994 Constitutional general appearance Development: appears stated age 0701/31/2019 None Full Exam - General 1994 Constitutional general appearance Overall: well developed 01/31/2019 None Full Exam - General 1994 Constitutional general appearance Overall: in no acute distress 01/31/2019 None Full Exam - General 1994 Constitutional general appearance Overall: well nourished 01/31/2019 None Full Exam - General 1994 Constitutional general appearance Hygiene/Attention to Grooming: good hygiene 01/31/2019 None Full Exam - General 1994 Eyes conjunctiva/eyelids Overall: conjunctiva clear 01/31/2019 None Full Exam - General 1994 Eyes conjunctiva/eyelids Overall: cornea clear 01/31/2019 None Full Exam - General 1994 Eyes conjunctiva/eyelids Overall: eyelids normal 01/31/2019 None Full Exam - General 1994 Eyes pupils and irises Overall: pupils equal, round, reactive to light and accomodation 01/31/2019 None Full Exam - General 1994 Ears/Nose/Throat otoscopic exam Overall: external auditory canals clear 01/31/2019 None Full Exam - General 1994 Ears/Nose/Throat otoscopic exam Overall: tympanic membranes clear 01/31/2019 None Full Exam - General 1995 Ears/Nose/Throat lips/teeth/gingiva Overall: benign lips 01/31/2019 None Full Exam - General 1995 Ears/Nose/Throat lips/teeth/gingiva Overall: normal dentition 01/31/2019 None Full Exam - General 1995 Ears/Nose/Throat oral cavity/pharynx/larynx Overall: oral mucosa clear 01/31/2019 None Full Exam - General 1995 Ears/Nose/Throat oral cavity/pharynx/larynx Overall: oropharyngeal mucosa clear 01/31/2019 None Full Exam - General 1995 Ears/Nose/Throat oral cavity/pharynx/larynx Overall: hypopharynx benign 01/31/2019 None Full Exam - General 1994 Ears/Nose/Throat oral cavity/pharynx/larynx Overall: no masses 01/31/2019 None Full Exam - General 1994 Respiratory auscultation Overall: breath sounds clear bilaterally 01/31/2019 None Full Exam - General 1994 Respiratory respiratory effort/rhythm Overall: no retractions 01/31/2019 None Full Exam - General 1994 Respiratory respiratory effort/rhythm Overall: normal rate 01/31/2019 None Full Exam - General 1994 Cardiovascular extremities Overall: no clubbing 01/31/2019 None Full Exam - General 1994 Cardiovascular extremities Edema present: pitting 01/31/2019 None Full Exam - General 1994 Cardiovascular extremities Edema present: severity 1+ - 4+: 1+ 01/31/2019 None Full Exam - General 1994 Cardiovascular auscultation of heart Overall: regular rate 01/31/2019 None Full Exam - General 1994 Cardiovascular auscultation of heart Overall: normal heart sounds 01/31/2019 None Full Exam - General 1994 Abdomen abdominal exam Overall: no tenderness 01/31/2019 None Full Exam - General 1994 Abdomen abdominal exam Overall: normal bowel sounds 01/31/2019 None Full Exam - General 1994 Lymphatic neck nodes Overall: anterior cervical chain benign 01/31/2019 None Full Exam - General 1994 Lymphatic neck nodes Overall: posterior cervical chain benign 01/31/2019 None Full Exam - General 1994 Musculoskeletal spine, ribs and pelvis Overall: spine benign 01/31/2019 None Full Exam - General 1994 Musculoskeletal spine, ribs and pelvis Overall: sacroiliac joint benign 01/31/2019 None Full Exam - General 1994 Musculoskeletal spine, ribs and pelvis Overall: good posture 01/31/2019 None Full Exam - General 1994 Musculoskeletal head and neck Overall: head atraumatic 01/31/2019 None Full Exam - General 1994 Musculoskeletal head and neck Overall: cervical spine benign 01/31/2019 None Full Exam - General 1994 Neurologic deep tendon reflexes Overall: deep tendon reflexes intact 01/31/2019 None Full Exam - General 1994 Neurologic cranial nerves Overall: crainial nerves 2 - 12 grossly intact 01/31/2019 None Full Exam - General 1994 Psychiatric orientation/consciousness Overall: oriented to person, place and time 01/31/2019 None Full Exam - General 1994 Psychiatric mood and affect Overall: normal mood and affect 01/31/2019 None Full Exam - General 1994 Constitutional general appearance Development: appears stated age 0601/12/2019 None Full Exam - General 1994 Constitutional general appearance Overall: well developed 01/12/2019 None Full Exam - General 1994 Constitutional general appearance Overall: in no acute distress 01/12/2019 None Full Exam - General 1994 Constitutional general appearance Overall: well nourished 01/12/2019 None Full Exam - General 1994 Constitutional general appearance Hygiene/Attention to Grooming: good hygiene 01/12/2019 None Full Exam - General 1994 Eyes conjunctiva/eyelids Overall: conjunctiva clear 01/12/2019 None Full Exam - General 1994 Eyes conjunctiva/eyelids Overall: cornea clear 01/12/2019 None Full Exam - General 1994 Eyes conjunctiva/eyelids Overall: eyelids normal 01/12/2019 None Full Exam - General 1994 Eyes pupils and irises Overall: pupils equal, round, reactive to light and accomodation 01/12/2019 None Full Exam - General 1994 Ears/Nose/Throat otoscopic exam Overall: external auditory canals clear 01/12/2019 None Full Exam - General 1994 Ears/Nose/Throat otoscopic exam Overall: tympanic membranes clear 01/12/2019 None Full Exam - General 1994 Ears/Nose/Throat lips/teeth/gingiva Overall: benign lips 01/12/2019 None Full Exam - General 1994 Ears/Nose/Throat lips/teeth/gingiva Overall: normal dentition 01/12/2019 None Full Exam - General 1994 Ears/Nose/Throat oral cavity/pharynx/larynx Overall: oral mucosa clear 01/12/2019 None Full Exam - General 1994 Ears/Nose/Throat oral cavity/pharynx/larynx Overall: oropharyngeal mucosa clear 01/12/2019 None Full Exam - General 1994 Ears/Nose/Throat oral cavity/pharynx/larynx Overall: hypopharynx benign 01/12/2019 None Full Exam - General 1994 Ears/Nose/Throat oral cavity/pharynx/larynx Overall: no masses 01/12/2019 None Full Exam - General 1994 Respiratory auscultation Overall: breath sounds clear bilaterally 01/12/2019 None Full Exam - General 1994 Respiratory respiratory effort/rhythm Overall: no retractions 01/12/2019 None Full Exam - General 1994 Respiratory respiratory effort/rhythm Overall: normal rate 01/12/2019 None Full Exam - General 1994 Cardiovascular extremities Overall: no clubbing 01/12/2019 None Full Exam - General 1994 Cardiovascular extremities Edema present: pitting 01/12/2019 None Full Exam - General 1994 Cardiovascular extremities Edema present: severity 1+ - 4+: 1+ 01/12/2019 None Full Exam - General 1994 Cardiovascular auscultation of heart Overall: regular rate 01/12/2019 None Full Exam - General 1994 Cardiovascular auscultation of heart Overall: normal heart sounds 01/12/2019 None Full Exam - General 1994 Abdomen abdominal exam Overall: no tenderness 01/12/2019 None Full Exam - General 1994 Abdomen abdominal exam Overall: normal bowel sounds 01/12/2019 None Full Exam - General 1994 Lymphatic neck nodes Overall: anterior cervical chain benign 01/12/2019 None Full Exam - General 1994 Lymphatic neck nodes Overall: posterior cervical chain benign 01/12/2019 None Full Exam - General 1994 Musculoskeletal spine, ribs and pelvis Overall: spine benign 01/12/2019 None Full Exam - General 1994 Musculoskeletal spine, ribs and pelvis Overall: sacroiliac joint benign 01/12/2019 None Full Exam - General 1994 Musculoskeletal spine, ribs and pelvis Overall: good posture 01/12/2019 None Full Exam - General 1994 Musculoskeletal head and neck Overall: head atraumatic 01/12/2019 None Full Exam - General 1994 Musculoskeletal head and neck Overall: cervical spine benign 01/12/2019 None Full Exam - General 1994 Neurologic deep tendon reflexes Overall: deep tendon reflexes intact 01/12/2019 None Full Exam - General 1994 Neurologic cranial nerves Overall: crainial nerves 2 - 12 grossly intact 01/12/2019 None Full Exam - General 1994 Psychiatric orientation/consciousness Overall: oriented to person, place and time 01/12/2019 None Full Exam - General 1994 Psychiatric mood and affect Overall: normal mood and affect 01/12/2019 None Full Exam - General 1994 Constitutional general appearance Development: appears stated age 0512/06/2018 None Full Exam - General 1994 Constitutional general appearance Overall: well developed 12/06/2018 None Full Exam - General 1994 Constitutional general appearance Overall: in no acute distress 12/06/2018 None Full Exam - General 1994 Constitutional general appearance Overall: well nourished 12/06/2018 None Full Exam - General 1994 Constitutional general appearance Hygiene/Attention to Grooming: good hygiene 12/06/2018 None Full Exam - General 1994 Eyes conjunctiva/eyelids Overall: conjunctiva clear 12/06/2018 None Full Exam - General 1994 Eyes conjunctiva/eyelids Overall: cornea clear 12/06/2018 None Full Exam - General 1994 Eyes conjunctiva/eyelids Overall: eyelids normal 12/06/2018 None Full Exam - General 1994 Eyes pupils and irises Overall: pupils equal, round, reactive to light and accomodation 12/06/2018 None Full Exam - General 1994 Ears/Nose/Throat otoscopic exam Overall: external auditory canals clear 12/06/2018 None Full Exam - General 1994 Ears/Nose/Throat otoscopic exam Overall: tympanic membranes clear 12/06/2018 None Full Exam - General 1994 Ears/Nose/Throat lips/teeth/gingiva Overall: benign lips 12/06/2018 None Full Exam - General 1994 Ears/Nose/Throat lips/teeth/gingiva Overall: normal dentition 12/06/2018 None Full Exam - General 1994 Ears/Nose/Throat oral cavity/pharynx/larynx Overall: oral mucosa clear 12/06/2018 None Full Exam - General 1994 Ears/Nose/Throat oral cavity/pharynx/larynx Overall: oropharyngeal mucosa clear 12/06/2018 None Full Exam - General 1994 Ears/Nose/Throat oral cavity/pharynx/larynx Overall: hypopharynx benign 12/06/2018 None Full Exam - General 1994 Ears/Nose/Throat oral cavity/pharynx/larynx Overall: no masses 12/06/2018 None Full Exam - General 1994 Respiratory auscultation Overall: breath sounds clear bilaterally 12/06/2018 None Full Exam - General 1994 Respiratory respiratory effort/rhythm Overall: no retractions 12/06/2018 None Full Exam - General 1994 Respiratory respiratory effort/rhythm Overall: normal rate 12/06/2018 None Full Exam - General 1994 Cardiovascular extremities Overall: no clubbing 12/06/2018 None Full Exam - General 1994 Cardiovascular auscultation of heart Overall: regular rate 12/06/2018 None Full Exam - General 1994 Cardiovascular auscultation of heart Overall: normal heart sounds 12/06/2018 None Full Exam - General 1994 Abdomen abdominal exam Overall: no tenderness 12/06/2018 None Full Exam - General 1994 Abdomen abdominal exam Overall: normal bowel sounds 12/06/2018 None Full Exam - General 1994 Lymphatic neck nodes Overall: anterior cervical chain benign 12/06/2018 None Full Exam - General 1994 Lymphatic neck nodes Overall: posterior cervical chain benign 12/06/2018 None Full Exam - General 1994 Musculoskeletal spine, ribs and pelvis Overall: spine benign 12/06/2018 None Full Exam - General 1994 Musculoskeletal spine, ribs and pelvis Overall: sacroiliac joint benign 12/06/2018 None Full Exam - General 1994 Musculoskeletal spine, ribs and pelvis Overall: good posture 12/06/2018 None Full Exam - General 1994 Musculoskeletal head and neck Overall: head atraumatic 12/06/2018 None Full Exam - General 1994 Musculoskeletal head and neck Overall: cervical spine benign 12/06/2018 None Full Exam - General 1994 Neurologic deep tendon reflexes Overall: deep tendon reflexes intact 12/06/2018 None Full Exam - General 1994 Neurologic cranial nerves Overall: crainial nerves 2 - 12 grossly intact 12/06/2018 None Full Exam - General 1994 Psychiatric orientation/consciousness Overall: oriented to person, place and time 12/06/2018 None Full Exam - General 1994 Psychiatric mood and affect Overall: normal mood and affect 12/06/2018 None Full Exam - General 1994 Cardiovascular extremities Edema present: pitting 12/06/2018 None Full Exam - General 1994 Cardiovascular extremities Edema present: severity 1+ - 4+: 1+ 12/06/2018 None Full Exam - General 1994 Integument inspection of skin Location: inguinal area 12/06/2018 left groin infected hair follicle Full Exam - General 1994 Constitutional general appearance Development: appears stated age 0411/15/2018 None Full Exam - General 1994 Constitutional general appearance Overall: well developed 11/15/2018 None Full Exam - General 1994 Constitutional general appearance Overall: in no acute distress 11/15/2018 None Full Exam - General 1994 Constitutional general appearance Overall: well nourished 11/15/2018 None Full Exam - General 1994 Constitutional general appearance Hygiene/Attention to Grooming: good hygiene 11/15/2018 None Full Exam - General 1994 Eyes conjunctiva/eyelids Overall: conjunctiva clear 11/15/2018 None Full Exam - General 1994 Eyes conjunctiva/eyelids Overall: cornea clear 11/15/2018 None Full Exam - General 1994 Eyes conjunctiva/eyelids Overall: eyelids normal 11/15/2018 None Full Exam - General 1994 Eyes pupils and irises Overall: pupils equal, round, reactive to light and accomodation 11/15/2018 None Full Exam - General 1994 Ears/Nose/Throat otoscopic exam Overall: external auditory canals clear 11/15/2018 None Full Exam - General 1994 Ears/Nose/Throat otoscopic exam Overall: tympanic membranes clear 11/15/2018 None Full Exam - General 1994 Ears/Nose/Throat lips/teeth/gingiva Overall: benign lips 11/15/2018 None Full Exam - General 1994 Ears/Nose/Throat lips/teeth/gingiva Overall: normal dentition 11/15/2018 None Full Exam - General 1994 Ears/Nose/Throat oral cavity/pharynx/larynx Overall: oral mucosa clear 11/15/2018 None Full Exam - General 1994 Ears/Nose/Throat oral cavity/pharynx/larynx Overall: oropharyngeal mucosa clear 11/15/2018 None Full Exam - General 1994 Ears/Nose/Throat oral cavity/pharynx/larynx Overall: hypopharynx benign 11/15/2018 None Full Exam - General 1994 Ears/Nose/Throat oral cavity/pharynx/larynx Overall: no masses 11/15/2018 None Full Exam - General 1994 Respiratory auscultation Overall: breath sounds clear bilaterally 11/15/2018 None Full Exam - General 1994 Respiratory respiratory effort/rhythm Overall: no retractions 11/15/2018 None Full Exam - General 1994 Respiratory respiratory effort/rhythm Overall: normal rate 11/15/2018 None Full Exam - General 1994 Cardiovascular extremities Overall: no clubbing 11/15/2018 None Full Exam - General 1994 Cardiovascular auscultation of heart Overall: regular rate 11/15/2018 None Full Exam - General 1994 Cardiovascular auscultation of heart Overall: normal heart sounds 11/15/2018 None Full Exam - General 1994 Abdomen abdominal exam Overall: no tenderness 11/15/2018 None Full Exam - General 1994 Abdomen abdominal exam Overall: normal bowel sounds 11/15/2018 None Full Exam - General 1994 Lymphatic neck nodes Overall: anterior cervical chain benign 11/15/2018 None Full Exam - General 1994 Lymphatic neck nodes Overall: posterior cervical chain benign 11/15/2018 None Full Exam - General 1994 Musculoskeletal spine, ribs and pelvis Overall: spine benign 11/15/2018 None Full Exam - General 1994 Musculoskeletal spine, ribs and pelvis Overall: sacroiliac joint benign 11/15/2018 None Full Exam - General 1994 Musculoskeletal spine, ribs and pelvis Overall: good posture 11/15/2018 None Full Exam - General 1994 Musculoskeletal head and neck Overall: head atraumatic 11/15/2018 None Full Exam - General 1994 Musculoskeletal head and neck Overall: cervical spine benign 11/15/2018 None Full Exam - General 1994 Neurologic deep tendon reflexes Overall: deep tendon reflexes intact 11/15/2018 None Full Exam - General 1994 Neurologic cranial nerves Overall: crainial nerves 2 - 12 grossly intact 11/15/2018 None Full Exam - General 1994 Psychiatric orientation/consciousness Overall: oriented to person, place and time 11/15/2018 None Full Exam - General 1994 Psychiatric mood and affect Overall: normal mood and affect 11/15/2018 None Full Exam - General 1994 Constitutional general appearance Development: appears stated age 0410/25/2018 None Full Exam - General 1994 Constitutional general appearance Overall: well developed 10/25/2018 None Full Exam - General 1994 Constitutional general appearance Overall: in no acute distress 10/25/2018 None Full Exam - General 1994 Constitutional general appearance Overall: well nourished 10/25/2018 None Full Exam - General 1994 Constitutional general appearance Hygiene/Attention to Grooming: good hygiene 10/25/2018 None Full Exam - General 1994 Eyes conjunctiva/eyelids Overall: conjunctiva clear 10/25/2018 None Full Exam - General 1994 Eyes conjunctiva/eyelids Overall: cornea clear 10/25/2018 None Full Exam - General 1994 Eyes conjunctiva/eyelids Overall: eyelids normal 10/25/2018 None Full Exam - General 1994 Eyes pupils and irises Overall: pupils equal, round, reactive to light and accomodation 10/25/2018 None Full Exam - General 1994 Ears/Nose/Throat otoscopic exam Overall: external auditory canals clear 10/25/2018 None Full Exam - General 1994 Ears/Nose/Throat otoscopic exam Overall: tympanic membranes clear 10/25/2018 None Full Exam - General 1994 Ears/Nose/Throat lips/teeth/gingiva Overall: benign lips 10/25/2018 None Full Exam - General 1995 Ears/Nose/Throat lips/teeth/gingiva Overall: normal dentition 10/25/2018 None Full Exam - General 1994 Ears/Nose/Throat oral cavity/pharynx/larynx Overall: oral mucosa clear 10/25/2018 None Full Exam - General 1994 Ears/Nose/Throat oral cavity/pharynx/larynx Overall: oropharyngeal mucosa clear 10/25/2018 None Full Exam - General 1994 Ears/Nose/Throat oral cavity/pharynx/larynx Overall: hypopharynx benign 10/25/2018 None Full Exam - General 1994 Ears/Nose/Throat oral cavity/pharynx/larynx Overall: no masses 10/25/2018 None Full Exam - General 1994 Respiratory auscultation Overall: breath sounds clear bilaterally 10/25/2018 None Full Exam - General 1994 Respiratory respiratory effort/rhythm Overall: no retractions 10/25/2018 None Full Exam - General 1994 Respiratory respiratory effort/rhythm Overall: normal rate 10/25/2018 None Full Exam - General 1994 Cardiovascular extremities Overall: no clubbing 10/25/2018 None Full Exam - General 1994 Cardiovascular auscultation of heart Overall: regular rate 10/25/2018 None Full Exam - General 1994 Cardiovascular auscultation of heart Overall: normal heart sounds 10/25/2018 None Full Exam - General 1994 Abdomen abdominal exam Overall: no tenderness 10/25/2018 None Full Exam - General 1994 Abdomen abdominal exam Overall: normal bowel sounds 10/25/2018 None Full Exam - General 1994 Lymphatic neck nodes Overall: anterior cervical chain benign 10/25/2018 None Full Exam - General 1994 Lymphatic neck nodes Overall: posterior cervical chain benign 10/25/2018 None Full Exam - General 1994 Musculoskeletal spine, ribs and pelvis Overall: spine benign 10/25/2018 None Full Exam - General 1994 Musculoskeletal spine, ribs and pelvis Overall: sacroiliac joint benign 10/25/2018 None Full Exam - General 1994 Musculoskeletal spine, ribs and pelvis Overall: good posture 10/25/2018 None Full Exam - General 1994 Musculoskeletal head and neck Overall: head atraumatic 10/25/2018 None Full Exam - General 1994 Musculoskeletal head and neck Overall: cervical spine benign 10/25/2018 None Full Exam - General 1994 Neurologic deep tendon reflexes Overall: deep tendon reflexes intact 10/25/2018 None Full Exam - General 1994 Neurologic cranial nerves Overall: crainial nerves 2 - 12 grossly intact 10/25/2018 None Full Exam - General 1994 Psychiatric orientation/consciousness Overall: oriented to person, place and time 10/25/2018 None Full Exam - General 1994 Psychiatric mood and affect Overall: normal mood and affect 10/25/2018 None Full Exam - General 1994 Constitutional general appearance Development: appears stated age 0310/13/2018 None Full Exam - General 1994 Constitutional general appearance Overall: well developed 10/13/2018 None Full Exam - General 1994 Constitutional general appearance Overall: in no acute distress 10/13/2018 None Full Exam - General 1994 Constitutional general appearance Overall: well nourished 10/13/2018 None Full Exam - General 1994 Constitutional general appearance Hygiene/Attention to Grooming: good hygiene 10/13/2018 None Full Exam - General 1994 Eyes conjunctiva/eyelids Overall: conjunctiva clear 10/13/2018 None Full Exam - General 1994 Eyes conjunctiva/eyelids Overall: cornea clear 10/13/2018 None Full Exam - General 1994 Eyes conjunctiva/eyelids Overall: eyelids normal 10/13/2018 None Full Exam - General 1994 Eyes pupils and irises Overall: pupils equal, round, reactive to light and accomodation 10/13/2018 None Full Exam - General 1994 Ears/Nose/Throat otoscopic exam Overall: external auditory canals clear 10/13/2018 None Full Exam - General 1994 Ears/Nose/Throat otoscopic exam Overall: tympanic membranes clear 10/13/2018 None Full Exam - General 1994 Ears/Nose/Throat lips/teeth/gingiva Overall: benign lips 10/13/2018 None Full Exam - General 1994 Ears/Nose/Throat lips/teeth/gingiva Overall: normal dentition 10/13/2018 None Full Exam - General 1994 Ears/Nose/Throat oral cavity/pharynx/larynx Overall: oral mucosa clear 10/13/2018 None Full Exam - General 1995 Ears/Nose/Throat oral cavity/pharynx/larynx Overall: oropharyngeal mucosa clear 10/13/2018 None Full Exam - General 1994 Ears/Nose/Throat oral cavity/pharynx/larynx Overall: hypopharynx benign 10/13/2018 None Full Exam - General 1994 Ears/Nose/Throat oral cavity/pharynx/larynx Overall: no masses 10/13/2018 None Full Exam - General 1994 Respiratory auscultation Overall: breath sounds clear bilaterally 10/13/2018 None Full Exam - General 1994 Respiratory respiratory effort/rhythm Overall: no retractions 10/13/2018 None Full Exam - General 1994 Respiratory respiratory effort/rhythm Overall: normal rate 10/13/2018 None Full Exam - General 1994 Cardiovascular extremities Overall: no clubbing 10/13/2018 None Full Exam - General 1994 Cardiovascular auscultation of heart Overall: regular rate 10/13/2018 None Full Exam - General 1994 Cardiovascular auscultation of heart Overall: normal heart sounds 10/13/2018 None Full Exam - General 1994 Abdomen abdominal exam Overall: no tenderness 10/13/2018 None Full Exam - General 1994 Abdomen abdominal exam Overall: normal bowel sounds 10/13/2018 None Full Exam - General 1994 Lymphatic neck nodes Overall: anterior cervical chain benign 10/13/2018 None Full Exam - General 1994 Lymphatic neck nodes Overall: posterior cervical chain benign 10/13/2018 None Full Exam - General 1994 Musculoskeletal spine, ribs and pelvis Overall: spine benign 10/13/2018 None Full Exam - General 1994 Musculoskeletal spine, ribs and pelvis Overall: sacroiliac joint benign 10/13/2018 None Full Exam - General 1994 Musculoskeletal spine, ribs and pelvis Overall: good posture 10/13/2018 None Full Exam - General 1994 Musculoskeletal head and neck Overall: head atraumatic 10/13/2018 None Full Exam - General 1994 Musculoskeletal head and neck Overall: cervical spine benign 10/13/2018 None Full Exam - General 1994 Neurologic deep tendon reflexes Overall: deep tendon reflexes intact 10/13/2018 None Full Exam - General 1994 Neurologic cranial nerves Overall: crainial nerves 2 - 12 grossly intact 10/13/2018 None Full Exam - General 1994 Psychiatric orientation/consciousness Overall: oriented to person, place and time 10/13/2018 None Full Exam - General 1994 Psychiatric mood and affect Overall: normal mood and affect 10/13/2018 None Full Exam - General 1994 Constitutional [...] None Full Exam - General 1994 Eyes conjunctiva/eyelids Overall: conjunctiva clear 09/15/2018 None Full Exam - General 1994 Eyes conjunctiva/eyelids Overall: cornea clear 09/15/2018 None Full Exam - General 1994 Eyes conjunctiva/eyelids Overall: eyelids normal 09/15/2018 None Full Exam [...] benign 09/15/2018 None Full Exam - General 1995 Musculoskeletal spine, ribs and pelvis Overall: spine benign 09/15/2018 None Full Exam - General 1995 Musculoskeletal [...] None Full Exam - General 1994 Eyes conjunctiva/eyelids Overall: conjunctiva clear 08/15/2018 None Full Exam - General 1994 Eyes conjunctiva/eyelids Overall: cornea clear 08/15/2018 None Full Exam - General 1994 Eyes conjunctiva/eyelids Overall: eyelids normal 08/15/2018 None Full Exam [...] None Full Exam - General 1994 Eyes conjunctiva/eyelids Overall: conjunctiva clear 08/01/2018 None Full Exam - General 1994 Eyes conjunctiva/eyelids Overall: cornea clear 08/01/2018 None Full Exam - General 1994 Eyes conjunctiva/eyelids Overall: eyelids normal 08/01/2018 None Full Exam [...] None Full Exam - General 1994 Eyes conjunctiva/eyelids Overall: conjunctiva clear 04/20/2018 None Full Exam - General 1994 Eyes conjunctiva/eyelids Overall: cornea clear 04/20/2018 None Full Exam - General 1994 Eyes conjunctiva/eyelids Overall: eyelids normal 04/20/2018 None Full Exam [...] None Full Exam - General 1994 Eyes conjunctiva/eyelids Overall: conjunctiva clear 02/09/2018 None Full Exam - General 1994 Eyes conjunctiva/eyelids Overall: eyelids normal 02/09/2018 None Full Exam [...] None Full Exam - General 1994 Eyes conjunctiva/eyelids Overall: conjunctiva clear 12/16/2017 None Full Exam - General 1994 Eyes conjunctiva/eyelids Overall: cornea clear 12/16/2017 None Full Exam - General 1994 Eyes conjunctiva/eyelids Overall: eyelids normal 12/16/2017 None Full Exam [...] None Full Exam - General 1994 Eyes conjunctiva/eyelids Overall: conjunctiva clear 08/23/2017 None Full Exam - General 1994 Eyes conjunctiva/eyelids Overall: cornea clear 08/23/2017 None Full Exam - General 1994 Eyes conjunctiva/eyelids Overall: eyelids normal 08/23/2017 None Full Exam [...] None Full Exam - General 1994 Eyes conjunctiva/eyelids Overall: conjunctiva clear 02/03/2017 None Full Exam - General 1994 Eyes conjunctiva/eyelids Overall: eyelids normal 02/03/2017 None Full Exam [...] None Full Exam - General 1994 Eyes conjunctiva/eyelids Overall: conjunctiva clear 02/02/2017 None Full Exam - General 1994 Eyes conjunctiva/eyelids Overall: cornea clear 02/02/2017 None Full Exam - General 1994 Eyes conjunctiva/eyelids Overall: eyelids normal 02/02/2017 None Full Exam [...] 11/26/2016 None Full Exam - ENT Ears/Nose/Throat lips/teeth/gingiva Overall: benign lips 11/26/2016 None Full Exam [...] Neurologic orientation Overall: oriented to person, place a nd time 11/26/2016 None Full Exam - ENT Ears/Nose/Throat otoscopic exam Left tympanic membrane: air-fluid le harini 11/26/2016 None Full Exam - ENT Ears/Nose/Throat otoscopic exam Right tympanic membrane: retracted 11/26/2016 None Full Exam - ENT Respiratory auscultation Diffuse: diminished 10/2016 None Full Exam - General 1994 Constitutional general appearance Development: well developed 10/07/2016 None Full Exam - General 1994 Constitutional general appearance Development: appears stated age 0310/07/2016 None Full Exam - General 1994 Constitutional general appearance Hygiene/Attention to Grooming: good hygiene 10/07/2016 None Full Exam - General 1994 Eyes conjunctiva/eyelids Overall: conjunctiva clear 10/07/2016 None Full Exam - General 1994 Eyes conjunctiva/eyelids Overall: cornea clear 10/07/2016 None Full Exam - General 1994 Eyes conjunctiva/eyelids Overall: eyelids normal 10/07/2016 None Full Exam [...] None Full Exam - General 1994 Eyes conjunctiva/eyelids Overall: conjunctiva clear 09/16/2016 None Full Exam - General 1994 Eyes conjunctiva/eyelids Overall: eyelids normal 09/16/2016 None Full Exam [...] None Full Exam - General 1994 Eyes conjunctiva/eyelids Overall: conjunctiva clear 09/07/2016 None Full Exam - General 1994 Eyes conjunctiva/eyelids Overall: eyelids normal 09/07/2016 None Full Exam [...] None Full Exam - General 1994 Eyes conjunctiva/eyelids Overall: conjunctiva clear 03/05/2016 None Full Exam - General 1994 Eyes conjunctiva/eyelids Overall: cornea clear 03/05/2016 None Full Exam - General 1994 Eyes conjunctiva/eyelids Overall: eyelids normal 03/05/2016 None Full Exam [...] None Full Exam - General 1994 Eyes conjunctiva/eyelids Overall: conjunctiva clear 12/04/2015 None Full Exam - General 1994 Eyes conjunctiva/eyelids Overall: cornea clear 12/04/2015 None Full Exam - General 1994 Eyes conjunctiva/eyelids Overall: eyelids normal 12/04/2015 None Full Exam [...] None Full Exam - General 1994 Eyes conjunctiva/eyelids Overall: conjunctiva clear 11/18/2015 None Full Exam - General 1994 Eyes conjunctiva/eyelids Overall: cornea clear 11/18/2015 None Full Exam - General 1994 Eyes conjunctiva/eyelids Overall: eyelids normal 11/18/2015 None Full Exam [...] None Full Exam - General 1994 Eyes conjunctiva/eyelids Overall: conjunctiva clear 09/30/2015 None Full Exam - General 1994 Eyes conjunctiva/eyelids Overall: cornea clear 09/30/2015 None Full Exam - General 1994 Eyes conjunctiva/eyelids Overall: eyelids normal 09/30/2015 None Full Exam [...] None Full Exam - General 1994 Eyes conjunctiva/eyelids Overall: conjunctiva clear 07/09/2015 None Full Exam - General 1994 Eyes conjunctiva/eyelids Overall: cornea clear 07/09/2015 None Full Exam - General 1994 Eyes conjunctiva/eyelids Overall: eyelids normal 07/09/2015 None Full Exam [...] None Full Exam - General 1994 Eyes conjunctiva/eyelids Overall: conjunctiva clear 03/06/2015 None Full Exam - General 1994 Eyes conjunctiva/eyelids Overall: cornea clear 03/06/2015 None Full Exam - General 1994 Eyes conjunctiva/eyelids Overall: eyelids normal 03/06/2015 None Full Exam [...] None Procedures Procedure Codes Date URINALYSIS NONAUTO W /O SCOPE CPT-4: 57762 01/31/2019 URINALYSIS NONAUTO W /O SCOPE CPT-4: 72605 01/12/2019 URINALYSIS NONAUTO W /O SCOPE CPT-4: 35066 12/06/2018 URINALYSIS NONAUTO W /O SCOPE CPT-4: 65929 11/15/2018 URINALYSIS NONAUTO W /O SCOPE CPT-4: 38070 08/18/2018 ADMIN INFLUENZA VIRU S VAC CPT-4: G0008 04/20/2018 FLU VACC PRSV FREE I NC ANTIG Formatting Model/CDA Sections, Assigned to/Amparo Mims CPT-4: 65628Ndpjjrq 04/20/2018 PPPS, SUBSEQ VISIT CPT- 4: G0439 02/09/2018 PPPS, SUBSEQ VISIT CPT- 4: G0439 02/03/2017 ADMIN INFLUENZA VIRU S VAC CPT-4: G0008 04/08/2016 ADMIN PNEUMOCOCCAL V ACCINE SNOMED CT: 27984315 CPT-4: G0009 04/08/2016 PNEUMOCOCCAL VACC [address]: 84380176 CPT-4: 18127 04/08/2016 FLU VACC PRSV FREE I NC ANTIG CPT-4: 63486 04/08/2016 Vital Signs Date Vital 03/17/2019 Blood Pressure 1: 110/52 Code: 8480-6 BMI: 40.4 Code: 46773-2 Heart Rate 1: 85 bpm Height: 5'7" SpO2: 94% Weight: 258 lbs 03/09/2019 Blood Pressure 1: 108/64 Code: 8480-6 Heart Rate 1: 86 bpm Height: 5'7" SpO2: 94% Weight: 02/23/2019 Blood Pressure 1: 120/60 Code: 8480-6 BMI: 41.2 Code: 47777-2 Heart Rate 1: 80 bpm Height: 5'7" SpO2: 95% Weight: 263 lbs 02/14/2019 Blood Pressure 1: 110/60 Code: 8480-6 BMI: 41.0 Code: 11632-8 Heart Rate 1: 81 bpm Height: 5'7" SpO2: 91% Weight: 262 lbs 01/31/2019 Blood Pressure 1: 120/56 Code: 8480-6 Heart Rate 1: 85 bpm Height: 5'7" SpO2: 96% Weight: 01/12/2019 Blood Pressure 1: 128/68 Code: 8480-6 BMI: 41.2 Code: 63965-5 Heart Rate 1: 82 bpm Height: 5'7" SpO2: 92% Weight: 263 lbs 12/06/2018 Blood Pressure 1: 118/70 Code: 8480-6 BMI: 41.5 Code: 68017-4 Heart Rate 1: 97 bpm Height: 5'7" SpO2: 96% Weight: 265 lbs 11/15/2018 Blood Pressure 1: 144/76 Code: 8480-6 BMI: 42.3 Code: 87628-4 Heart Rate 1: 82 bpm Height: 5'7" SpO2: 96% Weight: 270 lbs 10/25/2018 Blood Pressure 1: 128/80 Code: 8480-6 BMI: 42.0 Code: 79925-1 Heart Rate 1: 93 bpm Height: 5'7" SpO2: 95% Weight: 268 lbs 10/13/2018 Blood Pressure 1: 162/76 Code: 8480-6 BMI: 42.0 Code: 84398-7 Heart Rate 1: 71 bpm Height: 5'7" SpO2: 96% Weight: 268 lbs 09/15/2018 Blood Pressure 1: 154/86 Code: 8480-6 BMI: 42.9 Code: 29868-0 Heart Rate 1: 88 bpm Height: 5'7" SpO2: 94% Weight: 274 lbs 08/15/2018 Blood Pressure 1: 140/90 Code: 8480-6 BMI: 40.7 Code: 25588-4 Heart Rate 1: 70 bpm Height: 5'7" SpO2: 93% Weight: 260 lbs 08/01/2018 Blood Pressure 1: 130/70 Code: 8480-6 BMI: 40.7 Code: 37864-5 Heart Rate 1: 80 bpm Height: 5'7" SpO2: 93% Weight: 260 lbs 04/20/2018 Blood Pressure 1: 128/68 Code: 8480-6 BMI: 41.7 Code: 62472-0 Heart Rate 1: 85 bpm Height: 5'7" SpO2: 94% Weight: 266 lbs 02/09/2018 Blood Pressure 1: 118/70 Code: 8480-6 BMI: 42.1 Code: 17506-5 Heart Rate 1: 58 bpm Height: 5'7" SpO2: 94% Weight: 269 lbs 12/16/2017 Blood Pressure 1: 132/86 Code: 8480-6 BMI: 42.7 Code: 79023-9 Heart Rate 1: 63 bpm Height: 5'7" SpO2: 94% Weight: 272 lbs 14 o z 08/23/2017 Blood Pressure 1: 150/82 Code: 8480-6 BMI: 42.0 Code: 83398-9 Heart Rate 1: 66 bpm Height: 5'7" SpO2: 96% Weight: 268 lbs 02/03/2017 Blood Pressure 1: 138/72 Code: 8480-6 BMI: 41.2 Code: 47568-9 Heart Rate 1: 96 bpm Height: 5'7" SpO2: 97% Weight: 263 lbs 02/02/2017 Blood Pressure 1: 140/90 Code: 8480-6 BMI: 41.2 Code: 24478-9 Heart Rate 1: 103 bpm Height: 5'7" SpO2: 94% Weight: 263 lbs 11/26/2016 Blood Pressure 1: 152/88 Code: 8480-6 BMI: 41.0 Code: 32225-9 Heart Rate 1: 71 bpm Height: 5'7" SpO2: 94% Temperature: 37.7 (C ) / 99.8 (F) Weight: 262 lbs 10/07/2016 Blood Pressure 1: 148/82 Code: 8480-6 BMI: 41.7 Code: 77516-7 Heart Rate 1: 58 bpm Height: 5'7" SpO2: 96% Weight: 266 lbs 09/16/2016 Blood Pressure 1: 122/70 Code: 8480-6 BMI: 42.0 Code: 18986-8 Heart Rate 1: 65 bpm Height: 5'7" SpO2: 96% Weight: 268 lbs 09/07/2016 Blood Pressure 1: 154/60 Code: 8480-6 BMI: 42.3 Code: 37700-4 Heart Rate 1: 101 bpm Height: 5'7" SpO2: 97% Weight: 270 lbs 04/08/2016 Blood Pressure 1: 128/70 Code: 8480-6 BMI: 41.4 Code: 78696-9 Heart Rate 1: 62 bpm Height: 5'7" SpO2: 95% Weight: 264 lbs 8 oz 03/05/2016 Blood Pressure 1: 144/78 Code: 8480-6 Blood Pressure 1: 139/72 Code: 8480-6 BMI: 41.9 Code: 79870-2 Heart Rate 1: 71 bpm Height: 5'7" SpO2: 93% Weight: 267 lbs 8 oz 12/04/2015 Blood Pressure 1: 132/70 Code: 8480-6 BMI: 41.3 Code: 47413-4 Heart Rate 1: 56 bpm Height: 5'7" SpO2: 96% Weight: 264 lbs 11/18/2015 Blood Pressure 1: 138/72 Code: 8480-6 BMI: 41.0 Code: 19237-6 Heart Rate 1: 85 bpm Height: 5'7" SpO2: 93% Weight: 262 lbs 09/30/2015 Blood Pressure 1: 128/76 Code: 8480-6 BMI: 41.2 Code: 59017-0 Heart Rate 1: 70 bpm Height: 5'7" SpO2: 93% Weight: 263 lbs 09/09/2015 Blood Pressure 1: 138/80 Code: 8480-6 BMI: 40.3 Code: 99105-5 Heart Rate 1: 84 bpm Height: 5'7" SpO2: 95% Weight: 257 lbs 08/28/2015 Blood Pressure 1: 122/72 Code: 8480-6 BMI: 39.6 Code: 95656-7 Heart Rate 1: 75 bpm Height: 5'7" SpO2: 96% Weight: 253 lbs 07/09/2015 Blood Pressure 1: 140/78 Code: 8480-6 Blood Pressure 1: 135/78 Code: 8480-6 BMI: 39.5 Code: 16554-6 Heart Rate 1: 62 bpm Height: 5'7" SpO2: 95% Weight: 252 lbs 03/06/2015 Blood Pressure 1: 142/88 Code: 8480-6 BMI: 39.3 Code: 83509-6 Heart Rate 1: 65 bpm Height: 5'7" SpO2: 95% Weight: 251 lbs Functional Status No Functional Status data History of Present Illness Symptom Name Status Resu lt Effective Date Notes Onset and Resolution D enies ongoing 03/17/2019 None Significant Medications Denies diuretics 03/17/2019 None Pertinent Findings dys pnea 03/17/2019 None Pertinent Findings villarreal b pain / tenderness 03/17/2019 None Pertinent Findings villarreal b redness 03/17/2019 None Location on both ankles 03/17/2019 None Location on both legs 03/17/2019 None Quality Denies intermi ttent 03/17/2019 None Quality painful 03/17/2019 None Quality worsening 03/17/2019 None Location on the right 03/17/2019 None Quality acute 03/17/2019 None Onset and Resolution s udden in onset 03/17/2019 None Onset of Symptom 1 wee ks ago 03/17/2019 None Frequency of Episodes daily 03/17/2019 None Pertinent Findings jeane n with movement 03/17/2019 None Pertinent Findings swe lling 03/17/2019 None Pertinent Findings wea kness 03/17/2019 None Frequency of Episodes unchanged 03/17/2019 None Onset of Symptom _ wee ks ago 03/17/2019 None Limitation on Activities does not limit activities 03/17/2019 None Frequency of Episodes decreasing 03/17/2019 None Significant Past Medical History cardiac disease 03/17/2019 None Significant Past Medical History renal disease 03/17/2019 None Triggers prolonged sit ting 03/17/2019 None Alleviating Factors me dication 03/17/2019 None Alleviating Factors ac tivity 03/17/2019 compression hose and diur etic Onset and Resolution D enies ongoing 03/09/2019 None Significant Medications Denies diuretics 03/09/2019 None Pertinent Findings dys pnea 03/09/2019 None Pertinent Findings villarreal b pain / tenderness 03/09/2019 None Pertinent Findings villarreal b redness 03/09/2019 None Location on both ankles 03/09/2019 None Location on both legs 03/09/2019 None Quality Denies intermi ttent 03/09/2019 None Quality painful 03/09/2019 None Quality worsening 03/09/2019 None Location on the right 03/09/2019 None Quality acute 03/09/2019 None Onset and Resolution s udden in onset 03/09/2019 None Onset of Symptom 1 wee ks ago 03/09/2019 None Frequency of Episodes daily 03/09/2019 None Mechanism of injury un known 03/09/2019 None Pertinent Findings swe lling 03/09/2019 None Pertinent Findings jeane n with movement 03/09/2019 None Pertinent Findings wea kness 03/09/2019 None Onset and Resolution D enies ongoing 02/23/2019 None Significant Medications Denies diuretics 02/23/2019 None Pertinent Findings villarreal b pain / tenderness 02/23/2019 None Location on both ankles 02/23/2019 None Location on both legs 02/23/2019 None Quality painful 02/23/2019 None Quality worsening 02/23/2019 None Pertinent Findings villarreal b redness 02/23/2019 None Pertinent Findings dys pnea 02/23/2019 None Quality Denies chronic 02/23/2019 None Onset and Resolution o ngoing 02/23/2019 None Quality Denies intermi ttent 02/23/2019 None Quality Denies intermi ttent 02/23/2019 None _ Denies Other: edema and UTI 02/23/2019 None Quality chronic 02/23/2019 None Alleviating Factors De nies medication 02/23/2019 None Location on both sides 02/14/2019 None Quality chronic 02/14/2019 None Quality intermittent 02/14/2019 None Onset and Resolution o ngoing 02/14/2019 None Onset of Symptom Denie s 2+ years ago 02/14/2019 None Alleviating Factors rest 02/14/2019 None Alleviating Factors heat 02/14/2019 None Exacerbating Factors s tanding or walking 02/14/2019 None Exacerbating Factors c hanging position 02/14/2019 None Exacerbating Factors a ctivity 02/14/2019 None Initial treatment inje ctions 02/14/[address] Sánchez Initial treatment phys ical therapy 02/14/2019 None Initial treatment stre tching 02/14/2019 None Location on both legs 02/14/2019 None Location on both ankles 02/14/2019 None Quality painful 02/14/2019 None Pertinent Findings villarreal b pain / tenderness 02/14/2019 None Quality Denies intermi ttent 02/14/2019 None Onset and Resolution D enies ongoing 02/14/2019 None Alleviating Factors De nies medications 02/14/2019 None Significant Medications Denies diuretics 02/14/2019 None Location on both sides 01/31/2019 None Quality chronic 01/31/2019 None Quality intermittent 01/31/2019 None Onset and Resolution o ngoing 01/31/2019 None Onset of Symptom Denie s 2+ years ago 01/31/2019 None Alleviating Factors rest 01/31/2019 None Alleviating Factors heat 01/31/2019 None Exacerbating Factors s tanding or walking 01/31/2019 None Exacerbating Factors c hanging position 01/31/2019 None Exacerbating Factors a ctivity 01/31/2019 None Initial treatment inje ctions 01/31/[address] Sánchez Initial treatment phys ical therapy 01/31/2019 None Initial treatment stre tching 01/31/2019 None Quality chronic 01/12/2019 None Quality primary hypert ension 01/12/2019 None Onset and Resolution o ngoing 01/12/2019 None Onset of Symptom durin g adulthood 01/12/2019 None Blood Pressure Values not checking blood pressure at home 01/12/2019 -Her BP machine quit working Severity not consisten tly severe symptoms, the symptoms fluctuate from no symptoms to anxiety and headaches 01/12/2019 None Frequency of Episodes unchanged 01/12/2019 None Significant Medical Conditions cardiac disease 01/12/2019 None Triggers no known asso ciated factors 01/12/2019 None Alleviating Factors me dication 01/12/2019 None Exacerbating Factors s tress 01/12/2019 None Pertinent Findings diz ziness 01/12/2019 if she gets up fast- trie s not to Pertinent Findings dys pnea 01/12/2019 None Pertinent Findings edema 01/12/2019 in her legs and ankles Location on both sides 01/12/2019 None Quality chronic 01/12/2019 None Quality intermittent 01/12/2019 None Onset and Resolution o ngoing 01/12/2019 None Onset of Symptom Denie s 2+ years ago 01/12/2019 None Alleviating Factors rest 01/12/2019 None Exacerbating Factors s tanding or walking 01/12/2019 None Exacerbating Factors c hanging position 01/12/2019 None Exacerbating Factors a ctivity 01/12/2019 None Initial treatment inje ctions 01/12/[address] Sánchez Initial treatment phys ical therapy 01/12/2019 None Initial treatment stre tching 01/12/2019 None Alleviating Factors heat 01/12/2019 None Quality worsening 12/06/2018 None Quality intermittent 12/06/2018 None Quality breathlessness 12/06/2018 None Location on both ankles 12/06/2018 None Quality worsening 12/06/2018 None Pertinent Findings dys pnea on exertion 12/06/2018 None Pertinent Findings villarreal b pain / tenderness 12/06/2018 None Frequency of Episodes Denies increasing 12/06/2018 None Exacerbating Factors e xertion 12/06/2018 None Quality Denies intermi ttent 12/06/2018 None Onset and Resolution o ngoing 12/06/2018 None Onset of Symptom _ wee ks ago 12/06/2018 None Limitation on Activities does not limit activities 12/06/2018 None Significant Past Medical History cardiac disease 12/06/2018 None Significant Medications diuretics 12/06/2018 None Triggers no known asso ciated factors 12/06/2018 None Quality chronic 11/15/2018 None Quality primary hypert ension 11/15/2018 None Onset and Resolution o ngoing 11/15/2018 None Onset of Symptom durin g adulthood 11/15/2018 None Significant Medical Conditions cardiac disease 11/15/2018 None Alleviating Factors me dication 11/15/2018 None Exacerbating Factors s tress 11/15/2018 None Pertinent Findings Den ies dizziness 11/15/2018 None Pertinent Findings dys pnea 11/15/2018 None Pertinent Findings edema 11/15/2018 "not bad" Quality chronic 11/15/2018 None Onset and Resolution o ngoing 11/15/2018 None Alleviating Factors me dication 11/15/2018 None Blood Pressure Values not checking blood pressure at home 11/15/2018 -Her BP machine quit working Frequency of Episodes decreasing 11/15/2018 None Onset and Resolution r esolved 11/15/2018 None Pertinent Findings Den ies bladder pain 11/15/2018 None Quality intermittent 11/15/2018 None Onset and Resolution o ngoing 11/15/2018 None Onset of Symptom Denie s 1 years ago 11/15/2018 None Triggers no known asso ciated factors 11/15/2018 None Quality improving 11/15/2018 None Severity not consisten tly severe symptoms, the symptoms fluctuate from no symptoms to anxiety and headaches 11/15/2018 None Frequency of Episodes unchanged 11/15/2018 None Triggers no known asso ciated factors 11/15/2018 None Limitation on Activities does not limit activities 11/15/2018 None Quality intermittent 10/25/2018 None Quality loose 10/25/2018 None Onset and Resolution s udden in onset 10/25/2018 None Onset of Symptom _ amber rs ago 10/25/2018 None Location in the epigas tric area 10/25/2018 None Quality burning 10/25/2018 None Onset of Symptom _ amber rs ago 10/25/2018 None Quality acute 10/25/2018 None Onset and Resolution o ngoing 10/25/2018 None Limitation on Activities does not limit activities 10/25/2018 None Frequency of Episodes unchanged 10/25/2018 None Timing of Episodes all day long 10/25/2018 None Triggers no known asso ciated factors 10/25/2018 None Quality acute 10/25/2018 None Limitation on Activities does not limit activities 10/25/2018 None Frequency of Episodes 4-6 stools per day 10/25/2018 None Triggers no known asso ciated factors 10/25/2018 None Pertinent Findings Den ies chills 10/25/2018 None Pertinent Findings Den ies cough 10/25/2018 None Pertinent Findings Den ies edema 10/25/2018 None Pertinent Findings hea rtburn 10/25/2018 None Pertinent Findings poo r weight gain 10/25/2018 None Quality chronic 10/13/2018 None Quality primary hypert ension 10/13/2018 None Onset and Resolution o ngoing 10/13/2018 None Onset of Symptom durin g adulthood 10/13/2018 None Blood Pressure Values patient checking blood pressure at home - did not bring in readings 10/13/2018 None Significant Medical Conditions cardiac disease 10/13/2018 None Alleviating Factors me dication 10/13/2018 None Pertinent Findings Den ies dizziness 10/13/2018 None Pertinent Findings dys pnea 10/13/2018 None Pertinent Findings edema 10/13/2018 "sometimes" Location on both sides 10/13/2018 None Quality chronic 10/13/2018 None Quality intermittent 10/13/2018 None Onset and Resolution o ngoing 10/13/2018 -but improved Onset of Symptom Denie s 2+ years ago 10/13/2018 None Alleviating Factors rest 10/13/2018 None Exacerbating Factors s tanding or walking 10/13/2018 None Exacerbating Factors c hanging position 10/13/2018 None Exacerbating Factors a ctivity 10/13/2018 None Initial treatment phys ical therapy 10/13/2018 None Initial treatment stre tching 10/13/2018 None Exacerbating Factors s tress 10/13/2018 None Initial treatment inje ctions 10/13/[address] Sánchez Quality chronic 09/15/2018 None Quality primary hypert ension 09/15/2018 None Onset and Resolution o ngoing 09/15/2018 None Onset of Symptom durin g adulthood 09/15/2018 None Alleviating Factors me dication 09/15/2018 None Blood Pressure Values patient checking blood pressure at home - did not bring in readings 09/15/2018 None Significant Medical Conditions cardiac disease 09/15/2018 None Initial treatment phys ical therapy 09/15/2018 None Pertinent Findings diz ziness 09/15/2018 None Pertinent Findings dys pnea 09/15/2018 None Pertinent Findings edema 09/15/2018 None Quality intermittent 09/15/2018 None Onset and Resolution o ngoing 09/15/2018 None Quality chronic 09/15/2018 None Onset of Symptom Denie s 2+ years ago 09/15/2018 None Location on both sides 09/15/2018 None Alleviating Factors rest 09/15/2018 None Exacerbating Factors c hanging position 09/15/2018 None Exacerbating Factors s tanding or walking 09/15/2018 None Exacerbating Factors a ctivity 09/15/2018 None Initial treatment stre tching 09/15/2018 None Quality chronic 08/15/2018 None Onset and Resolution o ngoing 08/15/2018 None Onset of Symptom durin g adulthood 08/15/2018 None Blood Pressure Values not checking blood pressure at home 08/15/2018 None Severity mild 08/15/2018 None Frequency of Episodes unchanged 08/15/2018 None Triggers no known asso ciated factors 08/15/2018 None Alleviating Factors me dication 08/15/2018 None Significant Medical Conditions cardiac disease 08/15/2018 None Location in the throat 08/01/2018 None Quality dry 08/01/2018 None Quality intermittent 08/01/2018 None Onset and Resolution o ngoing 08/01/2018 None Onset of Symptom 3 mon ths ago 08/01/2018 None Pertinent Findings isauro st discomfort 08/01/2018 None Pertinent Findings Den ies fever 08/01/2018 None hypertension Quality bailey jeannine hypertension 04/20/2018 None hypertension Onset and Resolution ongoing 04/20/2018 None hypertension Onset of Symptom during adulthood 04/20/2018 None hypertension Alleviating Factors medication 04/20/2018 None hypertension Pertinent Findings Denies dizziness 04/20/2018 None hypertension Pertinent Findings dyspnea 04/20/2018 None hypertension Pertinent Findings edema 04/20/2018 occasionally hypertension Pertinent Findings palpitations 04/20/2018 None arrhythmia Quality inter mittent 04/20/2018 None arrhythmia Quality irreg ular beats 04/20/2018 (atrial fibrillation) arrhythmia Alleviating Factors medication 04/20/2018 None hypertension Quality chr onic 04/20/2018 None arrhythmia Quality chron ic 04/20/2018 None hypertension Blood Pressure Values not checking blood pressure at home 04/20/2018 None Annual Medicare Wellness Exam Descri be Your Health poor 02/09/2018 None Annual Medicare Wellness Exam Exerci se Habits exercises 1 days per week 02/09/2018 None Annual Medicare Wellness Exam Handli ng Stress usually dulce effectively 02/09/2018 None Annual Medicare Wellness Exam Alcohol Use does not drink any alcohol 02/09/2018 None Annual Medicare Wellness Exam Aspirin Use no 02/09/2018 None Annual Medicare Wellness Exam Blood Glucose (self reported) desireable (below 100) 02/09/2018 None Annual Medicare Wellness Exam Blood Pressure (self reported) diagnosed with hypertension 02/10/20 18 None Annual Medicare Wellness Exam Choles terol (self reported) don't know 02/09/2018 No ne Annual Medicare Wellness Exam Depres miky (last 6 months) some of the time 02/09/2018 None Annual Medicare Wellness Exam Depres miky or Hopelessness some of the time 02/09/2018 None Annual Medicare Wellness Exam Hemagl obin A-1C (self reported) don't know 02/09/2018 No ne Annual Medicare Wellness Exam Intera ction with Friends yes 02/09/2018 None Annual Medicare Wellness Exam Intere sts & Pleasure almost all of the time 02/09/2018 None Annual Medicare Wellness Exam Life S atisfaction satisfied 02/09/2018 Non e Annual Medicare Wellness Exam Motor Vehicle Safety always fastens seat belt: y 02/10/20 18 None Annual Medicare Wellness Exam Motor Vehicle Safety drives after drinking: n 02/09/2018 None Annual Medicare Wellness Exam Motor Vehicle Safety rides with someone who has been drinking: n 02/09/2018 None Annual Medicare Wellness Exam Smokin g and Tobacco Use non smoker 02/09/2018 No ne Annual Medicare Wellness Exam Social & Emotional Support always 02/09/2018 None Annual Medicare Wellness Exam Stress some of the time 02/09/2018 None Annual Medicare Wellness Exam Sun Exposure protects skin when outdoors: y 02/09/2018 None Annual Medicare Wellness Exam Hours of Sleep 5 02/09/2018 None Annual Medicare Wellness Exam Nutrition servings of fried food / high fat foods per day: 0 02/09/2018 1-2 Annual Medicare Wellness Exam Nutrition servings of vegetables / fruit per day: 2-3 02/09/2018 None hypertension Quality bailey jeannine hypertension 12/16/2017 None hypertension Onset and Resolution [...] Findings Denies edema 12/16/2017 None arrhythmia Quality inter mittent 12/16/2017 None arrhythmia Quality irreg ular beats 12/16/2017 (atrial fibrillation) arrhythmia Onset and Resolution ongoing 12/16/2017 None arrhythmia Alleviating Factors medication 12/16/2017 None hypertension Pertinent Findings Denies decreased energy 12/16/2017 None hypertension Pertinent Findings Denies anxiety 12/16/2017 None hypertension Pertinent Findings palpitations 12/16/2017 None hypertension Quality bailey paez hypertension 08/23/2017 None hypertension Onset and Resolution [...] Findings Denies edema 08/23/2017 None arrhythmia Quality inter mittent 08/23/2017 None arrhythmia Quality irreg ular beats 08/23/2017 (atrial fibrillation) arrhythmia Onset and Resolution ongoing 08/23/2017 None arrhythmia Alleviating Factors medication 08/23/2017 None Annual Medicare Wellness Exam Alcohol Use does not drink any alcohol 02/03/2017 None Annual Medicare Wellness Exam Aspirin Use no 02/03/2017 Recently DCd Annual Medicare Wellness Exam Blood Glucose (self reported) don't know 02/03/2017 No ne Annual Medicare Wellness Exam Blood Pressure (self reported) diagnosed with hypertension 02/04/20 17 None Annual Medicare Wellness Exam Blood Pressure (self reported) high (140/90 or higher) 02/03/2017 None Annual Medicare Wellness Exam Choles terol (self reported) don't know 02/03/2017 No ne Annual Medicare Wellness Exam Depres miky (last 6 months) some of the time 02/03/2017 None Annual Medicare Wellness Exam Depres miky or Hopelessness almost never 02/03/2017 None Annual Medicare Wellness Exam Descri be Your Health good 02/03/2017 None Annual Medicare Wellness Exam Exerci se Habits does not exercise 02/03/2017 None Annual Medicare Wellness Exam Handli ng Stress usually dulce effectively 02/03/2017 None Annual Medicare Wellness Exam Hemagl obin A-1C (self reported) don't know 02/03/2017 No ne Annual Medicare Wellness Exam Hours of Sleep 6 02/03/2017 None Annual Medicare Wellness Exam Intera ction with Friends yes 02/03/2017 None Annual Medicare Wellness Exam Intere sts & Pleasure some of the time 02/03/2017 None Annual Medicare Wellness Exam Life S atisfaction satisfied 02/03/2017 Non e Annual Medicare Wellness Exam Motor Vehicle Safety always fastens seat belt: y 02/04/20 17 None Annual Medicare Wellness Exam Nutrition servings of vegetables / fruit per day: 2 02/03/2017 None Annual Medicare Wellness Exam Smokin g and Tobacco Use non smoker 02/03/2017 No ne Annual Medicare Wellness Exam Social & Emotional Support usually 02/03/2017 None Annual Medicare Wellness Exam Stress most of the time 02/03/2017 None Annual Medicare Wellness Exam Sun Exposure protects skin when outdoors: n 02/03/2017 None hypertension Quality int ermittent 02/02/2017 None hypertension Onset and Resolution ongoing [...] edema 02/02/2017 None low back pain Location o n both sides 02/02/2017 None low back pain Onset and Resolution ongoing 02/02/2017 None low back pain Limitation on Activities allows weight bearing activity 02/02/2017 None low back pain Limitation on Activities moderately limits activities 02/02/2017 None low back pain Significant Medical Co nditions prior injury 02/02/2017 None low back pain Triggers a ctivity 02/02/2017 None dyspnea Quality intermit tent 02/02/2017 None dyspnea Quality shortnes s of breath 02/02/2017 None dyspnea Onset and [...] edema 10/07/2016 None knee pain Location on th e left 10/07/2016 None knee pain Quality acute 10/07/2016 None knee pain Limitation on Activities allows weight bearing activity 10/07/2016 None knee pain Limitation on Activities moderately limits activities 10/07/2016 None knee pain Alleviating Factors rest 10/07/2016 None knee pain Exacerbating Factors exertion 10/07/2016 None knee pain Exacerbating Factors weight bearing 10/07/2016 None low back pain Location o n both sides 10/07/2016 None low back pain Limitation on Activities allows weight bearing activity 10/07/2016 None low back pain Limitation on Activities moderately limits activities 10/07/2016 None low back pain Significant Medical Co nditions prior injury 10/07/2016 None low back pain Triggers a ctivity 10/07/2016 None depression Quality chron ic 10/07/2016 None depression Onset and Resolution ongoing 10/07/2016 None hypertension Blood Pressure Values patient checking blood pressure at home - did not bring in readings 10/07/2016 -Checks occasionally depression Alleviating Factors medication 10/07/2016 None rash Location-Major on t he abdomen 10/07/2016 (under abdominal fold) rash Location-Major on t he chest 10/07/2016 (under breasts) rash Quality recurrent 10/07/2016 None rash Quality pruritic 10/07/2016 None rash Quality peeling 10/07/2016 None rash Onset and Resolution ongoing 10/07/2016 None rash Prior Treatments un responsive to treatment 10/07/2016 None hypertension Quality int ermittent 10/07/2016 None knee pain Quality improv ing 10/07/2016 None low back pain Onset and [...] home 09/16/2016 None Hospital Follow Up _ Ot er: chest pressure 09/16/2016 None Hospital Follow Up Quality acute 09/16/2016 None Hospital Follow Up Onset of Symptom 3 weeks ago 09/16/2016 None depression Quality worse [place] 09/16/2016 None depression Onset and Resolution ongoing 09/16/2016 None depression Quality chron ic 09/16/2016 None low back pain Location o n both sides 09/16/2016 None low back pain Quality [place] 09/16/2016 None low back pain Onset and Resolution sudden in onset 09/16/2016 None low back pain Onset of Symptom 1 weeks ago 09/16/2016 None low back pain Limitation on Activities allows weight bearing activity 09/16/2016 None low back pain Limitation on Activities moderately limits activities 09/16/2016 None low back pain Triggers a ctivity 09/16/2016 None low back pain Significant Medical Co nditions prior injury 09/16/2016 None knee pain Location on th e left 09/16/2016 None knee pain Quality acute [...] rest 09/16/2016 None knee pain Location on th e left 09/07/2016 None knee pain Quality tender ness 09/07/2016 None knee pain Quality consta nt 09/07/2016 None knee pain Onset and Resolution sudden in onset 09/07/2016 None knee pain Onset of Symptom 2 weeks ago 09/07/2016 None knee pain Frequency of Episodes daily 09/07/2016 None knee pain Pertinent Findings limping 09/07/2016 None knee pain Pertinent Findings pain with movement 09/07/2016 None knee pain Pertinent Findings stiffness 09/07/2016 None knee pain Pertinent Findings weakness 09/07/2016 None dyspnea Quality intermit tent 04/08/2016 None dyspnea Quality shortnes s of breath 04/08/2016 None dyspnea Onset and [...] Denies edema 04/08/2016 None rash Location-Trunk in t he intravaginal area 04/08/2016 None rash Quality improving 04/08/2016 None dyspnea Quality intermit tent 03/05/2016 None dyspnea Quality shortnes s of breath 03/05/2016 None dyspnea Onset and [...] of Episodes unchanged 03/05/2016 None dyspnea Quality intermit tent 12/04/2015 None dyspnea Quality worsening 12/04/2015 None dyspnea Onset and Resolution ongoing 12/04/2015 None dyspnea Onset of Symptom during adulthood 12/04/2015 None dyspnea Onset and Resolution gradual in onset 12/04/2015 None dyspnea Limitation on Activities moderately limits activities 12/04/2015 None dyspnea Alleviating Factors rest 12/04/2015 None dyspnea Exacerbating Factors exertion 12/04/2015 None dyspnea Alleviating Factors inhalers / nebulizer 12/04/2015 None dyspnea Quality shortnes s of breath 12/04/2015 None dyspnea Onset of Symptom 1-2 months ago 12/04/2015 None pruritus Location-Major in the groin area 12/04/2015 None pruritus Location-Trunk in the intravaginal area 12/04/2015 None pruritus Quality intermi ttent 12/04/2015 None pruritus Quality pruritic 12/04/2015 None pruritus Onset and Resolution ongoing 12/04/2015 None pruritus Onset of Symptom 2 years ago 12/04/2015 None pruritus Triggers no kno wn triggers 12/04/2015 None edema Onset and Resolution ongoing 11/18/2015 None edema Limitation on Activities moderately limits activities 11/18/2015 None edema Frequency of Episodes unchanged 11/18/2015 None edema Significant Medications diuretics 11/18/2015 None edema Triggers no known associated factors 11/18/2015 None edema Pertinent Findings back pain 11/18/2015 None edema Pertinent Findings dyspnea 11/18/2015 None edema Location on the le ft leg 11/18/2015 None edema Location on the ri ght leg 11/18/2015 None edema Quality acute 11/18/2015 None rash Location-Major in t he groin area 11/18/2015 None rash Color red 11/18/2015 None rash Onset and Resolution ongoing 11/18/2015 None rash Onset of Symptom _ years ago 11/18/2015 None cough Location in the th roat 11/18/2015 None cough Quality dry 11/18/2015 None cough Quality hacking 11/18/2015 None cough [...] 11/18/2015 None shortness of breath Limitation on Ac tivities moderately limits activities 11/18/2015 None shortness of breath Triggers activity 11/18/2015 None shortness of breath Alleviating Factors sitting down 11/18/2015 None shortness of breath Pertinent Findings chest discomfort 11/18/2015 None edema Onset and Resolution ongoing 09/30/2015 None edema Onset of Symptom 2 weeks ago 09/30/2015 worse in the last 2 weeks . edema Pertinent Findings back pain 09/30/2015 None edema Pertinent Findings dyspnea 09/30/2015 None edema Limitation on Activities moderately limits activities 09/30/2015 None edema Frequency of Episodes unchanged 09/30/2015 None edema Significant Medications diuretics 09/30/2015 None edema Triggers no known associated factors 09/30/2015 None edema Location on the le ft leg 09/30/2015 None edema Location on the ri ght leg 09/30/2015 None edema Quality acute 09/30/2015 None rash Location-Major on t he abdomen 09/09/2015 None rash Quality improving 09/09/2015 None rash Color red 09/09/2015 None rash Pertinent Findings itching 09/09/2015 None rash Onset and Resolution ongoing 09/09/2015 None rash Onset of Symptom _ weeks ago 09/09/2015 None rash Frequency of Episodes decreasing 09/09/2015 None rash Severity mild 09/09/2015 None rash Severity improving 09/09/2015 None rash Prior Treatments re sponsive to treatment 09/09/2015 None rash Triggers no known t riggers 09/09/2015 None rash Quality recurrent 08/28/2015 None rash Timing of Episodes in the summer 08/28/2015 usually rash Onset of Symptom 2 months ago 08/28/2015 None rash Quality pruritic 08/28/2015 None rash Quality painful 08/28/2015 None rash Quality worsening 08/28/2015 None rash Color red 08/28/2015 None rash Onset and Resolution ongoing 08/28/2015 None rash Pertinent Findings itching 08/28/2015 None rash Pertinent Findings pain 08/28/2015 None back pain Location lumba r-sacral spine 07/09/2015 fractured vertebra- twist ed in shower in August back pain Pertinent Findings Denies sleep disturbance 07/09/2015 uses Trazadone hypertension Quality chr onic 07/09/2015 None hypertension Onset and Resolution ongoing 07/09/2015 None hypertension Severity mi ld 07/09/[address] ress 07/09/2015 None hypertension Alleviating Factors medication 07/09/2015 [...] Factors medication 07/09/2015 None rash Location-Major on t he abdomen 07/09/2015 abdominal fold rash Quality recurrent 07/09/2015 None rash Color red 07/09/2015 None rash Onset of Symptom 2 weeks ago 07/09/2015June rash Timing of Episodes in the summer 07/09/2015 usually back pain Location lumba r-sacral spine 03/06/2015 fractured vertebra- twist ed in shower in August back pain Onset [...] and Resolution ongoing 03/06/2015 None hypertension Quality chr onic 03/06/2015 None hypertension Severity mi ld 03/06/[address] ress 03/06/2015 None hypertension Alleviating Factors medication 03/06/2015 None hypertension Exacerbating Factors stress 03/06/2015 None hypertension Exacerbating Factors change in dietary habits 03/06/2015 None Advance Directives No Advance Directive data Encounters Encounter Performer Loca tion Codes Date ([id number]) 69213 EST. P ATIENT, LEVEL III Diagnosis: Localized edema[ICD10: R60.0] Alis Spring MD, [facility] CPT- 4: 80815 03/17/2019 ([id number]) 77894 EST. P ATIENT, LEVEL III Diagnosis: Pain in right knee[ICD10: M25.561] Diagnosis: Localized edema[ICD10: R60.0] Alis Spring MD, [facility] CPT- 4: 72180 03/09/2019 ([id number]) 04404 EST. P ATIENT, LEVEL III Diagnosis: Urinary tract infection, site not specified[ICD10: N39.0] Diagnosis: Localized edema[ICD10: R60.0] Alis Spring MD, [facility] CPT- 4: 99411 02/23/2019 ([id number]) 65904 EST. P ATIENT, LEVEL III Diagnosis: Localized edema[ICD10: R60.0] Diagnosis: Lumbago with sciatica, right side[ICD10: M54.41] Alis Spring MD, [facility] CPT-4: 83824 02/14/2019 44739 EST. PATIENT, LEVEL IV Diagnosis: Lumbago with sciatica, right side[ICD10: M54.41] Diagnosis: Dysuria[ICD10: R30.0] Diagnosis: Paroxysmal atrial fibrillation[ICD10: I48.0] Alis Spring MD, [facility] CPT-4: 47651 01/31/2019 ([id number]) 04411 EST. P ATIENT, LEVEL IV Diagnosis: Essential (primary) hypertension[ICD10: I10] Diagnosis: Chronic atrial fibrillation[ICD10: I48.2] Diagnosis: Localized edema[ICD10: R60.0] Diagnosis: Dysuria[ICD10: R30.0] Diagnosis: Low back pain[ICD10: M54.5] Diagnosis: Vitamin D deficiency, unspecified[ICD10: E55.9] Alis Spring MD, [facility] CPT-4: 45723 01/12/2019 ([id number]) 74991 EST. P ATIENT, LEVEL IV Diagnosis: Localized edema[ICD10: R60.0] Diagnosis: Dysuria[ICD10: R30.0] Diagnosis: Cellulitis of abdominal wall[ICD10: L03.311] Alis Spring MD, [facility] CPT-4: 66624 12/06/2018 ([id number]) 53332 EST. P ATIENT, LEVEL III Diagnosis: Dysuria[ICD10: R30.0] Diagnosis: Essential (primary) hypertension[ICD10: I10] Diagnosis: Major depressive disorder, recurrent, moderate[ICD10: F33.1] Alis Spring MD, [facility] CPT-4: 03945 11/15/2018 ([id number]) 41144 EST. P ATIENT, LEVEL IV Diagnosis: Eructation[ICD10: R14.2] Diagnosis: Nausea[ICD10: R11.0] Diagnosis: Chest pain, unspecified[ICD10: R07.9] Diagnosis: Diarrhea, unspecified[ICD10: R19.7] Alis Spring MD, [facility] CPT-4: 08074 10/25/2018 ([id number]) 92032 EST. P ATIENT, LEVEL IV Diagnosis: Essential (primary) hypertension[ICD10: I10] Diagnosis: Low back pain[ICD10: M54.5] Diagnosis: Major depressive disorder, recurrent, moderate[ICD10: F33.1] Alis Spring MD, [facility] CPT-4: 35032 10/13/2018 ([id number]) 07748 EST. P ATIENT, LEVEL IV Diagnosis: Essential (primary) hypertension[ICD10: I10] Diagnosis: Dysuria[ICD10: R30.0] Diagnosis: Low back pain[ICD10: M54.5] Alis Spring MD, [facility] CPT- 4: 71570 09/15/2018 ([id number]) 56864 EST. P ATIENT, LEVEL III Diagnosis: Essential (primary) hypertension[ICD10: I10] Diagnosis: Low back pain[ICD10: M54.5] Alis Spring MD, [facility] CPT- 4: 79294 08/15/2018 ([id number]) 41309 EST. P ATIENT, LEVEL III Diagnosis: Essential (primary) hypertension[ICD10: I10] Diagnosis: Cough[ICD10: R05] Diagnosis: Low back pain[ICD10: M54.5] Alis Spring MD, [facility] CPT- 4: 26503 08/01/2018 ([id number]) 83374 EST. P ATIENT, LEVEL IV Diagnosis: Encounter for immunization[ICD10: Z23] Diagnosis: Essential (primary) hypertension[ICD10: I10] Diagnosis: Chronic atrial fibrillation[ICD10: I48.2] Diagnosis: Major depressive disorder, recurrent, mild[ICD10: F33.0] Scralett Spring MD, C CPT-4: 11377 04/20/2018 ([id number]) 95326 EST. P ATIENT, LEVEL IV Diagnosis: Essential (primary) hypertension[ICD10: I10] Diagnosis: Obstructive sleep apnea (adult) (pediatric)[ICD10: G47.33] Diagnosis: Chronic atrial fibrillation[ICD10: I48.2] Scarlett Spring MD, C CPT-4: 87697 12/16/2017 ([id number]) 21326 EST. P ATIENT, LEVEL IV Diagnosis: Essential (primary) hypertension[ICD10: I10] Diagnosis: Chronic atrial fibrillation[ICD10: I48.2] Scarlett Spring MD, C CPT-4: 84562 08/23/2017 ([id number]) 10968 EST. P ATIENT, LEVEL IV Diagnosis: Paroxysmal atrial fibrillation[ICD10: I48.0] Diagnosis: Essential (primary) hypertension[ICD10: I10] Scarlett Spring MD, C CPT-4: 49584 02/02/2017 47984 EST. PATIENT, LEVEL III Diagnosis: Acute laryngopharyngitis[ICD10: J06.0] Diagnosis: Cough[ICD10: R05] Diagnosis: Pleurodynia[ICD10: R07.81] Diagnosis: Other dorsalgia[ICD10: M54.89] Kassandra Spring MD, [facility] CPT-4: 53808 11/26/2016 ([id number]) 90577 EST. P ATIENT, LEVEL IV Diagnosis: Essential (primary) hypertension[ICD10: I10] Diagnosis: Pain in left knee[ICD10: M25.562] Diagnosis: Low back pain[ICD10: M54.5] Diagnosis: Major depressive disorder, recurrent, moderate[ICD10: F33.1] Scarlett Spring MD, [facility] CPT-4: 30149 10/07/2016 ([id number]) 33258 EST. P ATIENT, LEVEL IV Diagnosis: Essential (primary) hypertension[ICD10: I10] Diagnosis: Rash and other nonspecific skin eruption[ICD10: R21] Diagnosis: Major depressive disorder, recurrent, mild[ICD10: F33.0] Scarlett Spring MD, [facility] CPT-4: 54137 09/16/2016 69110 EST. PATIENT, LEVEL IV Diagnosis: Pain in left lower leg[ICD10: M79.662] Diagnosis: Pain in left knee[ICD10: M25.562] Kassandra Spring MD, [facility] CPT-4: 50014 09/07/2016 ([id number]) 64613 EST. P ATIENT, LEVEL IV Diagnosis: Encounter for immunization[ICD10: Z23] Diagnosis: Essential (primary) hypertension[ICD10: I10] Diagnosis: Mixed hyperlipidemia[ICD10: E78.2] Scarlett Spring MD, [facility] CPT- 4: 18975 04/08/2016 ([id number]) 38243 EST. P ATIENT, LEVEL III Diagnosis: Essential (primary) hypertension[ICD10: I10] Diagnosis: Shortness of breath[ICD10: R06.02] Scarlett Spring MD, [facility] CPT- 4: 27174 03/05/2016 ([id number]) 59076 EST. P ATIENT, LEVEL III Diagnosis: Chronic obstructive pulmonary disease, unspecified[ICD10: J44.9] Scarlett Spring MD, [facility] CPT-4: 16304 12/04/2015 ([id number]) 44785 EST. P ATIENT, LEVEL IV Diagnosis: Essential (primary) hypertension[ICD10: I10] Diagnosis: Allergic rhinitis due to pollen[ICD10: J30.1] Scarlett Spring MD, C CPT-4: 04928 11/18/2015 ([id number]) 39307 EST. P ATIENT, LEVEL IV Diagnosis: Localized edema[ICD10: R60.0] Diagnosis: Dysuria[ICD10: R30.0] Diagnosis: Essential (primary) hypertension[ICD10: I10] Diagnosis: Nausea[ICD10: R11.0] Alis Spring MD, [facility] CPT-4: 98336 09/30/2015 ([id number]) 54162 EST. P ATIENT, LEVEL II Diagnosis: Methicillin susceptible Staphylococcus aureus infection as the cause of diseases classified elsewhere[ICD10: B95.61] Diagnosis: Methicillin susceptible Staphylococcus aureus infection, unspecified site[ICD10: A49.01] Alis Spring MD, [facility] CPT-4: 75909 09/09/2015 ([id number]) 56031 EST. P ATIENT, LEVEL III Diagnosis: Dermatophytosis, unspecified[ICD10: B35.9] Diagnosis: Rash and other nonspecific skin eruption[ICD10: R21] Scarlett Spring MD, C CPT-4: 24605 08/28/2015 ([id number]) 09862 EST. P ATIENT, LEVEL IV Diagnosis: Essential (primary) hypertension[ICD10: I10] Diagnosis: Gastro-esophageal reflux disease without esophagitis[ICD10: K21.9] Diagnosis: Other dorsalgia[ICD10: M54.89] Scarlett Spring MD, [facility] CPT-4: 91198 07/09/2015 ([id number]) [facility] [place] - LEVEL 4 Diagnosis: ESSENTIAL HYPERTENSION[ICD9: 401.9] Diagnosis: Osteoporosis[ICD9: 733.00] Diagnosis: Back pain[ICD9: 724.5] Diagnosis: Insomnia[ICD9: 780.52] Diagnosis: ESOPHAGEAL REFLUX[ICD9: 530.81] Scarlett Spring MD, [facility] CPT-4: 44505 03/06/2015 Plan of Care Planned Activity Notes C odes Status Date Visit Plan: Edema - improved -pt bell s been advised to elevate legs to prevent dependent edema, compression has been recommended to help to naturally decrease peripheral edema. Diuretic use has been discussed and pt has been instructed in appropriate use of such medication as necessary to further attempt to reduce peripheral edema. 03/17/2019 Appointment: Alis Muhammad WPtel: [address] [place] [address] (15 min) Moderate 03/17/2019 Appointment: Alis Muhammad WPtel: [facility] (15 min) Moderate 03/17/2019 Patient Education: Patient Medication Summary Completed 03/17/2019 Visit Plan: Right knee pain -xray k nee -tylenol as needed Edema-not well controlled-check labs increase lasix -compression wrap bilateral lower legs with lyle wraps -schedule appt with Dr Tinoco -follow up in the office in 10 days 03/09/2019 Appointment: Alis Muhammad WPtel: [facility]6 [place] [phone] (30 min) Complex 03/09/2019 Patient Education: Patient Medication Summary Completed 03/09/2019 Visit Plan: UTI -stop bactrim -star t cipro twice daily -take a probiotic while on the abx Edema - pt has been advised to elevate legs to prevent dependent edema, compression has been recommended to help to naturally decrease peripheral edema. Diuretic use has been discussed and pt has been instructed in appropriate use of such medication as necessary to further attempt to reduce peripheral edema. 02/23/2019 Appointment: Alis Muhammad WPtel: [facility]0 [phone] (30 min) Complex 02/23/2019 Patient Education: Patient Medication Summary Completed 02/23/2019 Visit Plan: Edema - pt has been adv ised to elevate legs to prevent dependent edema, compression has been recommended to help to naturally decrease peripheral edema. Diuretic use has been discussed and pt has been i nstructed in appropriate use of such medication as necessary to further attempt to reduce peripheral edema. Chronic back pain -improved with gabapentin - continue current dose 02/14/2019 Appointment: Alis Muhammad WPtel: [facility]1 [place] [phone] (15 min) Moderate 02/14/2019 Patient Education: Patient Medication Summary Completed 02/14/2019 Referral: Dr Ewing Patient informed. Referral info faxed. Completed 02/08/2019 Visit Plan: Low back pain with scia gayathri -start gabapentin three times daily -continue exercises as able -follow up in 2 weeks, sooner if needed Dysuria -UA positive- await culture for treatment -refer to Dr Ewing for evaluation due to recurrent UTIs Atrial Fibrillation - pt on chronic anticoagulation and is currently rate controlled. The pt is to have labs done as appropriate to monitor medication levels and is to report if they start to feel as if their heart rate is becoming uncontrolled. 01/31/2019 Appointment: Alis Muhammad WPtel: [address] [place], [place] [phone] (30 min) Complex 01/31/2019 Patient Education: Patient Medication Summary Completed 01/31/2019 Care Plan: Urine Culture Pending 01/31/2019 Care Plan: Referral Order SNOMED-CT : [id number] Pending 01/31/2019 Visit Plan: Hypertension - well con trolled - continue with current medications, continue with no added salt diet. Pt has been encouraged to exercise daily. The pt has been advised to call the office if there are any acute concerns about change in blood pressure readings at home. Chronic Anticoagulant use - Pt has been counseled about the anticoagulant, need for serial monitoring, and need for the pt to alert the physician as to any new bruising, or acute bleeding. Therapeutic goal for INR is between 2.0 and 3.5. Low back pain -history of compression fractures-worsening pain -xray lumbar spine today Dysuria - UA negative Vitamin d def-check with labs today 01/12/2019 Appointment: Alis Muhammad WPtel: [address] [place], [place] [phone] [place] (30 min) Complex 01/12/2019 Patient Education: Patient Medication Summary Completed 01/12/2019 Patient Education: Back Pain Completed 01/12/2019 Appointment: Alis Muhammad WPtel: [address] [place], [place] [phone] [place] (30 min) Complex 12/13/2018 Visit Plan: Edema - pt has been adv ised to elevate legs to prevent dependent edema, compression has been recommended to help to naturally decrease peripheral edema. Diuretic use has been discussed and pt has been i nstructed in appropriate use of such medication as necessary to further attempt to reduce peripheral edema. History of UTI-UA negative Cellulitis - start topical abx as directed, return to clinic as previously directed, call for acute change in symptoms, worsening redness, warmth, discharge. 12/06/2018 Appointment: Alis Muhammad WPtel: [facility]3 [place] [phone] (30 min) Complex 12/06/2018 Patient Education: Patient Medication Summary Completed 12/06/2018 Visit Plan: Hypertension - well con trolled - continue with current medications, continue with [...] situational exposure. No change in current medications. Dysuria- culture urine - treat as indicated 11/15/2018 Appointment: Alis Muhammad WPtel: [facility] [place] [phone] (15 min) Moderate 11/15/2018 Patient Education: Patient Medication Summary Completed 11/15/2018 Patient Education: Depression Completed 11/15/2018 Visit Plan: Gastroenteritis - discu ssed need to stay away from milk products while acutely ill with diarrhea and nausea and emesis as it may worsen the symptoms. Liquids initially until the nausea improves, then re commend to advance to bland diet for 1 day, then advance as tolerated. Call if symptoms not improved. Chest pain -EKG and cardiac enzymes today- recommend appt with Dr Tinoco for evaluation -she also had episode of chest pain 2 weeks ago and was evaluated in ER 10/25/2018 Appointment: Alis Muhammad WPtel: [phone] [place] [phone] [place] (15 min) Moderate 10/25/2018 Patient Education: Patient Medication Summary Completed 10/25/2018 Visit Plan: Hypertension - uncontro lled - the patient's medications have been modified as documented in the visit note. The patient has been counseled to cut back on salt in diet for a no added salt diet, low fat d iet, start an exercise program with low weight bearing exercises and higher aerobic activity for heart health. The patient is to check blood pressure readings as an outpatient and either fax, call, or email the readings to the office next week for practitioner to review. The pt is to call for acute concerns. Depression - uncontrolled - Pt has been counseled about the diagnosis of depression, the potential causes, and risks associated with the diagnosis. The pt denies suicidal ideation, or plans. The patient has been counseled about treatment options, and understands the risks associated with treatment of depression, as well as the risks associated with NOT treating the depression. I believe the pt will benefit from medical intervention and an increase in antidepressant has been appropriately prescribed for this patient. Low back pain -improved-continue current treatment 10/13/2018 Appointment: Alis Muhammad WPtel: [phone] [phone] (15 min) Moderate 10/13/2018 Patient Education: Patient Medication Summary Completed 10/13/2018 Patient Education: Back Pain Completed 10/13/2018 Patient Education: Depression Completed 10/13/2018 Visit Plan: Hypertension - uncontro lled - the patient's medications have been modified as documented in the visit note. The patient has been counseled to cut back on salt in diet for a no added salt diet, low fat d iet, start an exercise program with low weight [...] Ua 09/15/2018 Appointment: Alis Muhammad WPtel: [phone] [phone] (30 min) Complex 09/15/2018 Patient Education: Patient [...] Muhammad WPtel: [facility]1 [phone] (30 min) Complex 08/15/2018 Patient Education: Patient Medication Summary Completed 08/15/2018 Patient Education: Back Pain Completed 08/15/2018 Visit Plan: HTN-lyle induced cough-s top lisinopril -start losartan -monitor blood pressure and follow up in 2 weeks Low back pain-xray lumbar spine and refer for PT 08/01/2018 Appointment: Alis Muhammad WPtel: [facility]3 [phone] (15 min) Moderate 08/01/2018 Patient Education: Patient Medication Summary Completed 08/01/2018 Patient Education: Back Pain Completed 08/01/2018 Care Plan: X-RAY EXAM L-S SPINE 2/ VWS LOINC : 79837-3 Pending 08/01/2018 Visit Plan: Hypertension - well con trolled - continue with current medications, continue with [...] shot today. 04/20/2018 Appointment: Scarlett Spring WPtel: [facility]9 [facility] (15 min) Moderate 04/20/2018 Patient Education: Patient Medication Summary Completed 04/20/2018 Patient Education: Depression Completed 04/20/2018 Visit Plan: Medicare Exam - today w e discussed the patients past history, immunizations, preventative [...] 02/09/2018 Visit Plan: Medicare Exam - today w e discussed the patients past history, immunizations, preventative [...] care surrogate. 02/09/2018 Appointment: Kassandra Argueta WPtel: [address] [place], [place] [id number] [facility] - Annual Wellness Visit 02/09/2018 Patient Education: Patient Medication Summary Completed 02/09/2018 Visit Plan: Atrial Fibrillation - p t on chronic anticoagulation and is currently rate [...] night. 12/16/2017 Appointment: Scarlett Spring WPtel: [phone] [facility] (15 min) Moderate 12/16/2017 Patient Education: Patient Medication Summary Completed 12/16/2017 Visit Plan: Hypertension - well con trolled - continue with current medications, continue with [...] uncontrolled. 08/23/2017 Appointment: Scarlett Spring WPtel: [phone] [facility] (15 min) Moderate 08/23/2017 Patient Education: Patient Medication Summary Completed 08/23/2017 Visit Plan: Medicare Exam - today w e discussed the patients past history, immunizations, preventative [...] cardiology 02/03/2017 Appointment: Kassandra Argueta WPtel: [phone] [facility] [facility] - Annual Wellness Visit 02/03/2017 Patient Education: Patient Medication Summary Completed 02/03/2017 Patient Education: Obesity Completed 02/03/2017 Visit Plan: Atrial fibrillation - a ppt with dr. barney dempsey at 1pm - pt's ekg showed acute atrial fibrillation. Hypertension - well controlled - continue with current medications, continue with no added salt t. Pt has been encouraged to exercise daily. The pt has been advised to call the office if there are any acute concerns about change in blood pressure readings at home. 02/02/2017 Appointment: Scarlett Spring WPtel: [phone] [facility] (15 min) Moderate 02/02/2017 Patient Education: Patient Medication Summary Completed 02/02/2017 Patient Education: Obesity Completed 02/02/2017 Patient Education: Hypertension Completed 02/02/2017 Visit Plan: URI - Pt advised to inc rease fluids, vitamin C. Discussed natural and expected [...] improve. 11/26/2016 Appointment: Kassandra Argueta WPtel: [phone] [facility] (30 min) Complex 11/26/2016 Patient Education: Patient Medication Summary Completed 11/26/2016 Visit Plan: Hypertension - well con trolled - continue with current medications, continue with [...] pain symptoms. 10/07/2016 Appointment: Scarlett Spring WPtel: [facility] [place] (15 min) Moderate 10/07/2016 Patient Education: Patient Medication Summary Completed 10/07/2016 Patient Education: Obesity Completed 10/07/2016 Patient Education: Hypertension Completed 10/07/2016 Care Plan: VASCULAR STUDY Pending 10/04/2016 Care Plan: X-RAY EXAM OF KNEE 3 [facility] : 65362-4 Pending 10/04/2016 Visit Plan: Hypertension - well con trolled - continue with current medications, continue with no added salt diet. Pt has been encouraged to exercise daily. The pt has been advised to call the office if there are any acute concerns about change in blood pressure readings at home. Rash - continue current treatment. Depression - RX for paroxetine 09/16/2016 Appointment: Scarlett Spring WPtel: [facility] [place] (15 min) Moderate 09/16/2016 Patient Education: Patient Medication Summary Completed 09/16/2016 Patient Education: Obesity Completed 09/16/2016 Patient Education: Hypertension Completed 09/16/2016 Visit Plan: Left knee pain, left ca lf pain - Will order x- ray, US - The pt is to use prn antiinflammatories to manage acute pain. The patient is to call the office if the pain is worsening or does not improve. 09/07/2016 Appointment: Kassandra Argueta WPtel: [facility]5 [facility] [place] (10 min) Simple 09/07/2016 Patient Education: Patient Medication Summary Completed 09/07/2016 Patient Education: Obesity Completed 09/07/2016 Visit Plan: Hypertension - well con trolled - continue with current medications, continue with [...] order 04/08/2016 Appointment: Scarlett Spring WPtel: [phone] [facility] (15 min) Moderate 04/08/2016 Patient Education: Patient Medication Summary Completed 04/08/2016 Patient Education: Obesity Completed 04/08/2016 Patient Education: Hypertension Completed 04/08/2016 Visit Plan: Hypertension - well con trolled - continue with current medications, continue with [...] days. 03/05/2016 Appointment: Scarlett Spring WPtel: [phone] [facility] [place] (15 min) Moderate 03/05/2016 Patient Education: Patient Medication Summary Completed 03/05/2016 Visit Plan: COPD - chronic problem for this patient. We have reviewed chronic treatment strategy, symptom control, and plans for acute exacerbations. No changes today to the current treatment plan as the patient is stable, monitor for acute changes. anoro samples given to the patient 12/04/2015 Appointment: Scarlett Spring WPtel: [phone] [facility] (15 min) Moderate 12/04/2015 Patient Education: Patient Medication Summary Completed 12/04/2015 Patient Education: Obesity Completed 12/04/2015 Visit Plan: Hypertension - uncontro lled - the patient's medications have been modified as documented in the visit note. The patient has been counseled to cut back on salt in diet for a no added salt diet, low fat d iet, start an exercise program with low weight [...] allergy spray. 11/18/2015 Appointment: Scarlett Spring WPtel: [address] [place] [address] (15 min) Moderate 11/18/2015 Patient Education: Patient Medication Summary Completed 11/18/2015 Patient Education: Obesity Completed 11/18/2015 Patient Education: Hypertension Completed 11/18/2015 Appointment: Scarlett Spring WPtel: [facility]5 [facility] (15 min) Moderate 11/07/2015 Visit Plan: Hypertension - well con trolled - continue with current medications, continue with [...] Visit Plan: MSSA of groin and under vzwxxtt-cyneaimha-rhghff bactrim and call if rash does not [...] report. 08/28/2015 Appointment: Scarlett Spring WPtel: [phone] [facility] (15 min) Moderate 08/28/2015 Patient Education: Patient Medication Summary Completed 08/28/2015 Care Plan: Ariela PRIEST RTS Cultured from groin Pending 08/28/2015 Visit Plan: Hypertension - well con trolled - continue with current medications, continue with [...] improving. 07/09/2015 Appointment: [facility] [phone] [id number] (15 min) Moderate 07/09/2015 Patient Education: Patient Medication Summary Completed 07/09/2015 Patient Education: Hypertension Completed 07/09/2015 Visit Plan: Hypertension - well con trolled - continue with current medications, continue with [...] esophageal reflux. The patient is to take medication s as prescribed and call the office if the symptoms are not improving. 03/06/2015 Appointment: [facility] WPtel: [address] [place], [place] [id number] [place] (S) New Patient 03/06/2015 Patient Education: Patient Medication Summary Completed 03/06/2015 Patient Education: Hypertension Completed 03/06/2015 Referral: Dr Ewing Referral Appointment Requested Instructions Comment MONITOR BLOOD PRESSU RE AND PULSE CONTINUE PHYSICAL THERAPY FOR YOUR BACK LET ME KNOW IF YOU NEED ANYTHING, OTHERWISE, WE WILL SEE YOU IN 1 MONTH . Hypertension - not well controlled - c ontinue with current medications, continue with no added salt diet. Pt has been encouraged to exercise daily. The pt has been advised to call the office if there are any acute concerns about change in blood pressure readings at home. Low back pain -compression fractures-continue PT -discussed referral to Ortho if symptoms do not improve . Left knee pain, le ft calf pain - Will order x-ray, US - The pt is to use prn antiinflammatories to manage acute pain. The patient is to call the office if the pain is worsening or does not improve. CHECK LABS today INCREASE LASIX TO 2 PILLS IN THE MORNING AND 2 AT NOON LYLE WRAP BOTH LEGS -ON IN THE MORNING AND OFF AT BEDTIME XRAY RIGHT KNEE MAKE AN APPOINTMENT WITH DR TINOCO . Right knee pain -xray knee -tylenol as needed Edema-not well controlled-check labs increase lasix -compression wrap bilateral lower legs with lyle wraps -schedule appt with Dr Tinoco -follow up in the office in 10 days . COPD - chronic problem for this patient. We have reviewed chronic treatment strategy, symptom control, and plans for acute exacerbations. No changes today to the current treatment plan as the patient is stable, monitor for acute changes. anoro samples given to the patient . Hypertension - wel l controlled - continue with current medications, continue [...] if their heart rate is becoming uncontrolled. check labs including cardiac enzymes and EKG promethazine for nausea simethicone for gas/belching . Gastroenteritis - discussed need to st ay away from milk products while acutely ill with diarrhea and nausea and emesis as it may worsen the symptoms. Liquids initially until the nausea improves, then recommend to advance to bland diet for 1 day, then advance as tolerated. Call if symptoms not improved. Chest pain -EKG and cardiac enzymes today- recommend appt with Dr Tinoco for evaluation -she also had episode of chest pain 2 weeks ago and was evaluated in ER Declined Procedure: (G0202) SCREENINGMAMMOGRAPHYDIGITAL; Declined Reason: Patient Declined . Atrial Fibrillation - pt on chronic an ticoagulation and is currently rate controlled. The pt [...] current management - cpap every night. . Edema - improved - pt has been advised to elevate legs to prevent dependent edema, compression has been recommended to help to naturally decrease peripheral edema. Diuretic use has been discussed and pt has been instructed in appropriate use of such medication as necessary to further attempt to reduce peripheral edema. . Hypertension - wel l controlled - continue with current medications, continue [...] symptoms are not improving. . Hypertension - wel l controlled - continue with current medications, continue [...] tissue three times daily x 10 days. COMPRESSION STOCKING S . Edema - pt has been advised to elevate legs to prevent dependent edema, compression has been recommended to help to naturally decrease peripheral edema. Diuretic use has been discussed and pt has been instructed in appropriate use of such medication as necessary to further attempt to reduce peripheral edema. Chronic back pain -improved with gabapentin -continue current dose Ibuprofen 600mg thre e times a s day as needed for [...] RESOLVED . MSSA of groin and under breasts-improv ing-finish bactrim and call if rash does not completely resolve d/c losartan start valsartan 160mg daily increase paroxetine to 40mg daily . Hypertension - uncontrolled - the tim ent's medications have been modified as documented in [...] pt is to call for acute concerns. Depression - uncontrolled - Pt has been counseled about the diagnosis of depression, the potential causes, and risks associated with the diagnosis. The pt denies suicidal ideation, or plans. The patient has been counseled about treatment options, and understands the risks associated with treatment of depression, as well as the risks associated with NOT treating the depression. I believe the pt will benefit from medical intervention and an increase in antidepressant has been appropriately prescribed for this patient. Low back pain -improved-continue current treatment CHECK URINE TODAY . Hypertension - well controlled - continue [...] situational exposure. No change in current medications. Dysuria- culture urine -treat as indicated increase losartan to 50mg daily -okay to take 2 pills of the 25mg dose until you run out refer to pain management -we will find out if anyone comes to [place] check UA start probiotic daily . Hypertension - uncontrolled - the tim ent's medications have been modified as documented in [...] pain management Dysuria-check Ua . Hypertension - wel l controlled - continue with current medications, continue [...] dose flu shot today. . Hypertension - wel l controlled - continue with current medications, continue [...] Use tylenol for break through pain symptoms. GABAPENTIN 100MG THR EE TIMES DAILY UA APPT WITH DR EWING . Low back pain with sciatica -start ronn apentin three times daily -continue exercises as able -follow up in 2 weeks, sooner if needed Dysuria -UA positive- await culture for treatment -refer to Dr Ewing for evaluation due to recurrent UTIs Atrial Fibrillation - pt on chronic anticoagulation and is currently rate controlled. The pt is to have labs done as appropriate to monitor medication levels and is to report if they start to feel as if their heart rate is becoming uncontrolled. . Medicare Exam - to day we discussed the patients past history, immunizations, [...] - Defer to cardiology bolster pillow or [place] mbar support pillow to use when seated to help support your lower back - for sure want to use one when on a trip in a car. . Hypertension - well controlled - gio nue with current medications, continue with no added [...] symptoms are not improving. . Hypertension - wel l controlled - continue with current medications, continue [...] do not resolve or if any worse XRAY LUMBAR SPINE CHECK LABS UA TODAY . Hypertension - well controlled - gio nue with current medications, continue with no added salt diet. Pt has been encouraged to exercise daily. The pt has been advised to call the office if there are any acute concerns about change in blood pressure readings at home. Chronic Anticoagulant use - Pt has been counseled about the anticoagulant, need for serial monitoring, and need for the pt to alert the physician as to any new bruising, or acute bleeding. Therapeutic goal for INR is between 2.0 and 3.5. Low back pain -history of compression fractures-worsening pain -xray lumbar spine today Dysuria - UA negative Vitamin d def-check with labs today take two of the metr oprolol succinate 25mg pills for a total of 50mg daily - when you current supply is gone, then fill the new RX for a Metoprolol succinate 50mg pill and take one pill daily. STOP your amlodipine. claritin 10mg daily x 1 month . Hypertension - uncontrolled - the tim ent's medications have been modified as documented in [...] nasal steroid allergy spray. . Hypertension - wel l controlled - continue with current medications, continue [...] shot today mammogram order . Hypertension - wel l controlled - continue with current medications, continue with no added salt diet. Pt has been encouraged to exercise daily. The pt has been advised to call the office if there are any acute concerns about change in blood pressure readings at home. Rash - continue current treatment. Depression - RX for paroxetine . Atrial fibrillatio n - appt with dr. tinoco today at 1pm - pt's ekg showed acute atrial fibrillation. Hypertension - well controlled - continue with current medications, continue with no added salt diet. Pt has been encouraged to exercise daily. The pt has been advised to call the office if there are any acute concerns about change in blood pressure readings at home. STOP BACTRIM START CIPRO 500MG TWICE DAILY TAKE A PROBIOTIC WHILE ON THE ANTIBIOTIC INCREASE LASIX TO 1 IN THE MORNING AND 2 AT NOON X 5 DAYS THEN GO BACK TO 2 TABS DAILY INCREASE POTASSIUM TO 1 IN THE MORNING AND 2 AT NOON X 5 DAYS THEN GO BACK TO 2 TABS DAILY DECREASE MULTAQ TO DAILY WHILE ON THE ANTIBIOTIC . UTI -stop bactrim -start cipro twice d aily -take a probiotic while on the abx Edema - pt has been advised to elevate legs to prevent dependent edema, compression has been recommended to help to naturally decrease peripheral edema. Diuretic use has been discussed and pt has been instructed in appropriate use of such medication as necessary to further attempt to reduce peripheral edema. STOP LISINOPRIL -STA RT LOSARATAN 25MG DAILY FOLLOW UP IN 2 WEEKS TO RE-EVALUATE COUGH XRAY LUMBAR SPINE PHYSICAL THERAPY WITH DIOGO PERES . HTN-lyle induced cough-stop lisinopril -start losartan -monitor blood pressure and follow up in 2 weeks Low back pain-xray lumbar spine and refer for PT check UA IF YOU HAVE A UTI -REFER TO DR EWING FOR RECURRENT UTI TAKE AN EXTRA LASIX AND POTASSIUM AT NOON X 1 WEEK COMPRESSION STOCKINGS -ON IN THE MORNING AND OFF AT BEDTIME MUPIROCIN OINTMENT to sore in your left groin -use twice daily . Edema - pt has been advised to elevate legs to prevent dependent edema, compression has been recommended to help to naturally decrease peripheral edema. Diuretic use has been discussed and pt has been instructed in appropriate use of such medication as necessary to further attempt to reduce peripheral edema. History of UTI-UA negative Cellulitis - start topical abx as directed, return to clinic as previously directed, call for acute change in symptoms, worsening redness, warmth, discharge. . Rash - dermatophyt osis - recommended oral diflucan, topical nystatin cream, rtc in 10 days to assure healing. check of culture - may need to consider treatment with antibiotic depending on the groin culture report. . Medicare Exam - to day we discussed the patients past history, immunizations, [...] health care surrogate. . Medicare Exam - to day we discussed the patients past history, immunizations, [...]
--- OUTSIDE RECORDS SUMMARY | 2020-01-23 13:43 | XMS REPORT | CCD ---
Author Author Jeannine Spring Organization Scarlett Spring MD, [facility] Address [address] [place] [address] Phone Care Team Providers Care Chief Yeoman Name Role Phone PP Unavailable CCM Unavailable Summary Purpose Interface Exchange Insurance Providers Payer name Policy type / Coverage type Covered green party ID Effective Begin Date Effective End Date WPS Medicare Part B Medicare Part B [id number] Unknown [place] WITT [employer] Medicare Part B [id number] Unkn own Family history Mother Diagnosis Age At Onset Hypertension Unknown Heart Attack Unknown Brother Diagnosis Age At Onset Heart disease Unknown Runs in the family Diagnosis Age At Onset Heart disease Unknown Daughter Diagnosis Age At Onset Heart Attack Unknown Hyperlipidemia Unknown Hypertension Unknown Social History Social History Element Codes Description Effective Dates Number of children Unknown 2 daughter lives in [place], son - does not have contact 09/16/[address]: 3846784 Quit over 10 years ago 1990 - previously smoked 2ppd x 25 years. 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 Allergies, Adverse Reactions, Alerts Substance Reaction [...] omeprazole 20 mg cap marina,delayed release RxNorm: 905497 Capsule(s) TAKE ONE C APSULE BY MOUTH EVERY NIGHT AT BEDTIME 03/13/2019 03/06/2020 Active Lasix 20 mg tablet RxNorm: 641063 2 Tablet(s) PO BID 03/09/2019 07/06/2019 Active 2 q am and 2 q noon terazosin 5 mg capsule RxNorm: 766698 TAKE ONE CAPSULE BY MOUTH DAILY 02/27/2019 06/26/2019 Ac tive potassium chloride E R 10 mEq tablet,extended release RxNorm: 019841 2 Tablet(s) PO daily 02/23/2019 06/22/2019 Active 3 daily x 5 days then 2 jignesh y thereafter Lasix 20 mg tablet RxNorm: 982555 2 Tablet(s) PO daily 02/23/2019 03/08/2019 Inactive take 3 daily x 5 days then 2 tab daily t herafter Cipro 500 mg tablet RxNorm: 313664 1 Tablet(s) PO BID 02/23/2019 03/01/2019 Inactive doxycycline hyclate 100 mg tablet,delayed release RxNorm: 213356 1 Tablet(s) PO BID 02/03/2019 02/02/2019 In active doxycycline hyclate 100 mg tablet,delayed release RxNorm: 246462 1 Tablet(s) PO BID an d probiotic bid 02/03/2019 02/09/2019 Inactive may use capsule if cheaper gabapentin 100 mg ca psule RxNorm: 742563 1 Capsule(s) PO TID 01/31/2019 04/30/2019 Active Ambien 10 mg tablet RxNorm: 750328 Tablet(s) TAKE ONE TABLET BY MOUTH AT BE DTIME NEEDED 01/20/2019 05/19/2019 Active Vitamin D2 50,000 un it capsule RxNorm: 7318252 1 Capsule(s) PO QW 01/18/2019 03/18/2019 Active Ambien 10 mg tablet RxNorm: 499264 Tablet(s) TAKE ONE TABLET BY MOUTH AT BE DTIME NEEDED 12/21/2018 04/18/2019 Active mupirocin 2 % topica l ointment RxNorm: 611511 1 Application TOP BID 12/06/2018 12/19/2018 Inactive doxycycline hyclate 100 mg tablet RxNorm: 6672682 1 Tablet(s) PO BID 11/21/2018 11/27/2018 Inactive can exchange for capsule if cheaper doxycycline hyclate 100 mg tablet RxNorm: 1970405 1 Tablet(s) PO BID 11/21/2018 11/20/2018 Inactive simethicone 125 mg c hewable tablet RxNorm: 421980 1 Tablet(s) PO qid pr n 10/25/2018 No Stop Date Active promethazine 25 mg t ablet RxNorm: 941974 1 Tablet(s) PO Q6 PRN 10/25/2018 No Stop Date Active paroxetine 40 mg tablet RxNorm: 1571974 1 Tablet(s) PO daily 10/13/2018 04/10/2019 Active valsartan 160 mg tablet RxNorm: 910819 1 Tablet(s) PO daily 10/13/2018 04/10/2019 Active trazodone 50 mg tablet RxNorm: 510011 TAKE ONE TABLET BY MOUTH DAILY 09/23/2018 03/21/2019 Ac tive Ambien 10 mg tablet RxNorm: 360054 TAKE ONE TABLET BY MOUTH AT BEDTIME N EEDED 09/23/2018 11/20/2018 Inactive terazosin 5 mg capsule RxNorm: 326134 TAKE ONE CAPSULE BY MOUTH DAILY 09/23/2018 02/19/2019 In active losartan 50 mg tablet RxNorm: 070895 1 Tablet(s) PO daily 09/15/2018 10/12/2018 Inactive omeprazole 20 mg cap marina,delayed release RxNorm: 727786 TAKE ONE CAPSULE BY M OUTH EVERY NIGHT AT BEDTIME 09/12/2018 03/10/2019 Inactive Keflex 500 mg capsule RxNorm: 178987 1 Capsule(s) PO TID 08/18/2018 08/17/2018 Inactive Keflex 500 mg capsule RxNorm: 067685 1 Capsule(s) PO TID 08/18/2018 08/24/2018 Inactive take probiotic while on abx paroxetine 20 mg tablet RxNorm: 6238450 TAKE ONE TABLET BY MOUTH DAILY 08/12/2018 10/12/2018 In active losartan 25 mg tablet RxNorm: 710692 1 Tablet(s) PO daily 08/01/2018 09/14/2018 Inactive losartan 25 mg tablet RxNorm: 186075 1 Tablet(s) PO daily 08/01/2018 10/12/2018 Inactive trazodone 50 mg tablet RxNorm: 637733 TAKE ONE TABLET BY MOUTH DAILY 07/25/2018 09/22/2018 In active Ambien 10 mg tablet RxNorm: 363669 Tablet(s) TAKE ONE TABLET BY MOUTH AT BE DTIME 06/24/2018 09/23/2018 Inactive trazodone 50 mg tablet RxNorm: 084825 TAKE ONE TABLET BY MOUTH DAILY 04/25/2018 07/23/2018 In active Ambien 10 mg tablet RxNorm: 171537 Tablet(s) TAKE ONE TABLET BY MOUTH AT BE DTIME 03/23/2018 06/19/2018 Inactive terazosin 5 mg capsule RxNorm: 451619 TAKE ONE CAPSULE BY MOUTH DAILY 03/14/2018 09/09/2018 In active Ambien 10 mg tablet RxNorm: 922449 Tablet(s) TAKE ONE TABLET BY MOUTH AT BE DTIME 01/18/2018 09/14/2018 Inactive trazodone 50 mg tablet RxNorm: 905999 TAKE ONE TABLET BY MOUTH ONCE DAILY 01/10/2018 03/22/2018 In active trazodone 50 mg tablet RxNorm: 822275 Tablet(s) TAKE ONE TABLET BY MOUTH ONCE DAILY 01/10/2018 04/24/2018 Inactive Ambien 10 mg tablet RxNorm: 649632 Tablet(s) TAKE ONE TABLET BY MOUTH AT BE DTIME 10/22/2017 01/17/2018 Inactive trazodone 50 mg tablet RxNorm: 336122 TAKE ONE TABLET BY MOUTH ONCE DAILY 10/18/2017 01/09/2018 In active omeprazole 20 mg cap marina,delayed release RxNorm: 574392 TAKE ONE CAPSULE BY M OUTH ONCE DAILY AT BEDTIME 08/27/2017 09/11/2018 Inactive trazodone 50 mg tablet RxNorm: 201706 TAKE ONE TABLET BY MOUTH ONCE DAILY 08/18/2017 10/17/2017 In active Ambien 10 mg tablet RxNorm: 500154 Tablet(s) TAKE ONE TABLET BY MOUTH AT BE [facility] 08/18/2017 03/22/2018 Inactive paroxetine 20 mg tablet RxNorm: 0327049 TAKE ONE TABLET BY MOUTH ONCE DAILY 07/27/2017 08/11/2018 In active Ambien 10 mg tablet RxNorm: 114978 Tablet(s) TAKE ONE TABLET BY MOUTH AT [facility] 06/23/2017 03/22/2018 Inactive omeprazole 20 mg cap marina,delayed release RxNorm: 398439 TAKE ONE CAPSULE BY M OUTH ONCE DAILY AT BEDTIME 04/23/2017 08/20/2017 Inactive trazodone 50 mg tablet RxNorm: 323417 TAKE ONE TABLET BY MOUTH ONCE DAILY 04/13/2017 08/10/2017 In active terazosin 5 mg capsule RxNorm: 306764 Capsule(s) TAKE ONE CAPSULE BY MOUTH [facility] 04/08/2017 03/03/2018 In active Ambien 10 mg tablet RxNorm: 918375 Tablet(s) TAKE ONE TABLET BY MOUTH AT [facility] 02/17/2017 03/22/2018 Inactive Tylenol-Codeine #3 3 00 mg-30 mg tablet RxNorm: 284336 1 Tablet(s) PO QID as needed 02/02/2017 11/14/2018 In active metoprolol succinate ER 50 mg tablet,extended release 24 hr RxNorm: 552735 TAKE ONE TABLET BY MOUTH ONCE DAILY 12/23/2016 02/02/2017 Inactive Zithromax Z-Ted 250 mg tablet RxNorm: 611932 1 Tablet(s) PO UD 11/26/2016 02/16/2017 Inactive trazodone 50 mg tablet RxNorm: 637310 TAKE ONE TABLET BY MOUTH ONCE DAILY 11/12/2016 03/11/2017 In active Ambien 10 mg tablet RxNorm: 500852 Tablet(s) TAKE ONE TABLET BY MOUTH AT BE DTIME 10/22/2016 02/15/2017 Inactive paroxetine 20 mg tablet RxNorm: 9179416 1 Tablet(s) PO daily TAKE ONE TABLET BY MOUTH DAILY 09/16/2016 06/12/2017 Inactive meloxicam 7.5 mg tablet RxNorm: 568948 1 Tablet(s) PO daily 09/16/2016 11/14/2016 Inactive Protonix 40 mg table t,delayed release RxNorm: 391074 1 Tablet(s) PO daily 09/16/2016 08/22/2017 In active sucralfate 1 gram ta blet RxNorm: 697658 1 Tablet(s) PO TID 09/16/2016 08/22/2017 Inactive Ambien 10 mg tablet RxNorm: 587458 Tablet(s) TAKE ONE TABLET BY MOUTH AT BE DTITN 08/24/2016 03/22/2018 Inactive trazodone 50 mg tablet RxNorm: 246902 Tablet(s) TAKE ONE TABLET BY MOUTH DAILY 07/29/2016 11/11/2016 In active Ambien 10 mg tablet RxNorm: 285274 TAKE ONE TABLET BY MOUTH AT BEDTIME 06/23/2016 03/22/2018 In active Ambien 10 mg tablet RxNorm: 183509 Tablet(s) TAKE ONE TABLET BY MOUTH EVERY NIGHT AT BEDTIME 06/22/2016 06/23/2016 Inactive Lasix 40 mg tablet RxNorm: 473031 1 Tablet(s) PO daily as needed for swell ing 04/03/2016 09/15/2016 In active potassium chloride E R 20 mEq tablet,extended release RxNorm: 914383 1 Tablet(s) PO daily for swelling take with lasix as needed 04/03/2016 09/15/2016 Inactive Ambien 10 mg tablet RxNorm: 687636 Tablet(s) TAKE ONE TABLET BY MOUTH EVERY NIGHT AT BEDTIME 04/03/2016 03/22/2018 Inactive omeprazole 20 mg cap marina,delayed release RxNorm: 360617 TAKE ONE CAPSULE BY M OUTH EVERY NIGHT AT BEDTIME 03/31/2016 09/15/2016 Inactive paroxetine 20 mg tablet RxNorm: 1252348 TAKE ONE TABLET BY MOUTH DAILY 03/31/2016 09/15/2016 In active trazodone 50 mg tablet RxNorm: 659648 TAKE ONE TABLET BY MOUTH DAILY 03/20/2016 07/28/2016 In active terazosin 5 mg capsule RxNorm: 545954 TAKE ONE CAPSULE BY MOUTH DAILY 03/06/2016 10/06/2016 In active Ambien 10 mg tablet RxNorm: 481830 Tablet(s) TAKE ONE TABLET BY MOUTH EVERY NIGHT AT BEDTIME 01/17/2016 04/02/2016 Inactive loratadine 10 mg tablet RxNorm: 347064 1 Tablet(s) PO daily 01/15/2016 09/15/2016 Inactive mupirocin 2 % topica l ointment RxNorm: 568566 1 Application TOP TID 11/18/2015 12/01/2015 Inactive metoprolol succinate ER 50 mg tablet,extended release 24 hr RxNorm: 738562 1 Tablet(s) PO daily 11/18/2015 11/11/2016 Inactive loratadine 10 mg tablet RxNorm: 670345 1 Tablet(s) PO daily 11/18/2015 01/14/2016 Inactive Lasix 40 mg tablet RxNorm: 730191 1 Tablet(s) PO daily as needed for swell ing 10/30/2015 11/28/2015 In active potassium chloride E R 20 mEq tablet,extended release RxNorm: 816737 1 Tablet(s) PO daily for swelling take with lasix as needed 10/30/2015 11/28/2015 Inactive Tylenol-Codeine #3 3 00 mg-30 mg tablet RxNorm: 804474 1 Tablet(s) PO QID as needed 10/25/2015 02/01/2017 In active Ambien 10 mg tablet RxNorm: 179597 Tablet(s) TAKE ONE TABLET BY MOUTH EVERY NIGHT AT BEDTIME 10/18/2015 03/22/2018 Inactive Diflucan 150 mg tablet RxNorm: 136609 1 Tablet(s) PO daily 10/01/2015 12/03/2015 Inactive Lasix 20 mg tablet RxNorm: 279695 1 Tablet(s) PO PRN fror swelling 09/27/2015 10/29/2015 In active potassium chloride E R 10 mEq capsule,extended release RxNorm: 857155 1 Capsule(s) PO PRN for swelling take with lasix 09/27/2015 10/29/2015 Inactive Bactrim DS 800 mg-16 0 mg tablet RxNorm: 028259 1 Tablet(s) PO BID 09/02/2015 09/11/2015 Inactive Bactrim DS 800 mg-16 0 mg tablet RxNorm: 607391 1 Tablet(s) PO BID 09/02/2015 09/01/2015 Inactive nystatin 100,000 uni t/gram topical cream RxNorm: 124519 1 Gram(s) TOP TID 08/28/2015 09/26/2015 In active Diflucan 150 mg tablet RxNorm: 472918 1 Tablet(s) PO daily 08/28/2015 09/06/2015 Inactive betamethasone diprop ionate 0.05 % topical ointment RxNorm: 885725 1 Application TOP TID to affected area 08/02/2015 02/01/2017 Inactive nystatin 100,000 uni t/gram topical powder RxNorm: 428890 1 Gram(s) TOP QID 07/09/2015 08/01/2015 In active Ambien 10 mg tablet RxNorm: 850083 1 Tablet(s) PO QHS 06/19/2015 06/18/2015 Inactive Ambien 10 mg tablet RxNorm: 567713 TAKE ONE TABLET BY MOUTH EVERY NIGHT AT BEDTIME 06/19/2015 09/16/2015 Inactive Vitamin D2 50,000 un it capsule RxNorm: 410284 1 Capsule(s) PO QW 03/07/2015 03/06/2015 Inactive Vitamin D2 50,000 un it capsule RxNorm: 9771271 1 Capsule(s) PO QW 03/07/2015 05/05/2015 Inactive terazosin 5 mg capsule RxNorm: 648225 1 Capsule(s) PO daily 03/06/2015 02/28/2016 Inactive [SAVINGS FOR NON-COVERED DRUGS -- BIN:00 3585, PCN: [id number], Group: XXXXX, ID# [id number], Questions: . THIS IS NOT INSURANCE.] trazodone 50 mg tablet RxNorm: 974470 1 Tablet(s) PO daily 03/06/2015 02/28/2016 Inactive paroxetine 20 mg tablet RxNorm: 4488321 1 Tablet(s) PO daily 03/06/2015 02/28/2016 Inactive Tylenol-Codeine #3 3 00 mg-30 mg tablet RxNorm: 949286 1 Tablet(s) PO QID as needed 03/06/2015 07/02/2015 In active amlodipine 10 mg tablet RxNorm: 147976 1 Tablet(s) PO daily 03/06/2015 11/17/2015 Inactive metoprolol succinate ER 25 mg tablet,extended release 24 hr RxNorm: 196754 1 Tablet(s) PO daily 03/06/2015 11/17/2015 Inactive omeprazole 20 mg cap marina,delayed release RxNorm: 086628 1 Capsule(s) PO QHS 03/06/2015 02/28/2016 In active omeprazole 20 mg cap marina,delayed release RxNorm: 220962 1 Capsule(s) PO QHS 01/31/2015 01/30/2015 In active omeprazole 20 mg cap marina,delayed release RxNorm: 874085 1 Capsule(s) PO QHS 01/31/2015 01/30/2015 In active omeprazole 20 mg cap marina,delayed release RxNorm: 278811 1 Capsule(s) PO QHS 01/31/2015 03/05/2015 In active Ambien 10 mg tablet RxNorm: 409358 1 Tablet(s) PO QHS 12/25/2014 04/21/2015 Inactive paroxetine 20 mg tablet RxNorm: 542022 1 Tablet(s) PO daily 12/25/2014 12/24/2014 Inactive Ambien 10 mg tablet RxNorm: 604204 1 Tablet(s) PO QHS 12/25/2014 12/24/2014 Inactive paroxetine 20 mg tablet RxNorm: 761362 1 Tablet(s) PO daily 12/25/2014 03/05/2015 Inactive terazosin 5 mg capsule RxNorm: 217471 1 Capsule(s) PO daily 11/23/2014 03/05/2015 Inactive [SAVINGS FOR NON-COVERED DRUGS -- BIN:00 3585, PCN: ASPROD1, Group: XXXXX, ID# [id number], Questions: . THIS IS NOT INSURANCE.] terazosin 5 mg capsule RxNorm: 408543 1 Capsule(s) PO daily 11/23/2014 11/22/2014 Inactive Multaq 400 mg tablet RxNorm: 454380 oral No Start Date Active hydrochlorothiazide 25 mg tablet RxNorm: 151075 1 Tablet(s) PO daily No Start Date Active Vitamin D3 2,000 uni t tablet RxNorm: 613696 1 Tablet(s) PO daily No Start Date Active Zetia 10 mg tablet RxNorm: 280406 1 Tablet(s) PO daily No Start Date Active Lipitor 80 mg tablet RxNorm: 558456 1/2 Tablet(s) PO daily No Start Date Active Coumadin 4 mg tablet RxNorm: 139852 1 Tablet(s) PO daily No Start Date Active Lasix 20 mg tablet RxNorm: 945526 1 Tablet(s) PO daily No Start Date 02/22/2019 Inactive metoprolol succinate ER 25 mg tablet,extended release 24 hr RxNorm: 457674 1 Tablet(s) PO daily No Start Date 03/05/2015 Inactive Entresto 49 mg-51 mg tablet RxNorm: 6854081 1 Tablet(s) PO BID No Start Date 04/19/2018 Inactive K-Dur 10 mEq tablet, extended release RxNorm: 924719 1 Tablet(s) PO daily No Start Date 02/22/2019 Inactive sotalol 80 mg tablet RxNorm: 2409196 1 Tablet(s) PO BID No Start Date 04/19/2018 Inactive betamethasone diprop ionate 0.05 % topical ointment RxNorm: 756758 1 Application TOP TID to affected area No Start Date 08/01/2015 Inactive trazodone 50 mg tablet RxNorm: 932602 1 Tablet(s) PO daily No Start Date 03/05/2015 Inactive potassium chloride E R 10 mEq capsule,extended release RxNorm: 298545 1 Capsule(s) PO PRN for swelling take with lasix No Start Date 09/26/2015 Inactive Eliquis 5 mg tablet RxNorm: 4463553 1 Tablet(s) PO BID No Start Date 09/14/2018 Inactive amiodarone 200 mg ta blet RxNorm: 062062 1 Tablet(s) PO BID No Start Date 01/30/2019 Inactive amlodipine 10 mg tablet RxNorm: 137843 1 Tablet(s) PO daily No Start Date 03/05/2015 Inactive isosorbide mononitra te ER 30 mg tablet,extended release 24 hr RxNorm: 693812 1 Tablet(s) PO daily No Start Date 08/22/2017 Inactive aspirin 81 mg tablet ,delayed release RxNorm: 363177 1 Tablet(s) PO daily No Start Date 02/02/2017 Inactive Lasix 20 mg tablet RxNorm: 067140 1 Tablet(s) PO PRN fror swelling No Start Date 09/26/2015 Inactive lisinopril 5 mg tablet RxNorm: 721550 1 Tablet(s) PO daily No Start Date 07/31/2018 Inactive Crestor 40 mg tablet RxNorm: 505227 1 Tablet(s) PO daily No Start Date 09/15/2016 Inactive metoprolol succinate ER 100 mg tablet,extended release 24 hr RxNorm: 444222 1 Tablet(s) PO daily No Start Date [...] Code Item Item Code Result Date Pt [id number] PT 23.8 seconds 03/09/2019 Pt Pbu0650 INR 2.2 03/09/2019 Pt Exq5816 Low Intensity - 1.5-2.0 03/09/2019 Pt Kfd3810 Mod intensity - 2.0-3.0 03/09/2019 Pt Tbo9351 Hi intensity - 3.0-4.0 03/09/2019 Comp Metabolic Kzq708 NA 137 mEq/L 03/09/2019 Comp Metabolic Iwn179 K 4.6 mEq/L 03/09/2019 Comp Metabolic Woo001 CL 101 mEq/L 03/09/2019 Comp Metabolic Qog133 CO2 26.0 mEq/L 03/09/2019 Comp Metabolic Caz775 AN ION GAP 15 03/09/2019 Comp Metabolic Bdj212 GL UCOSE 93 mg/dL 03/09/2019 Comp Metabolic Qxg689 Cr eat 1.2 mg/dL 03/09/2019 Comp Metabolic Lpl735 eG FR 48 ml/min/1.73m2 03/09 Comp Metabolic Fuh790 BUN 14 mg/dL 03/09/2019 Comp Metabolic Trz476 B/ C Ratio 12.0 Ratio 03/09/2019 Comp Metabolic Txc439 CA LCIUM 9.2 mg/dL 03/09/2019 Comp Metabolic Oai506 AL K PHOS 61 U/L 03/09/2019 Comp Metabolic Ywo810 T(SGOT) 29 U/L 03/09/2019 Comp Metabolic Fqz636 AL T(SGPT) 22 U/L 03/09/2019 Comp Metabolic Zzr587 BI LI T 0.7 mg/dL 03/09/2019 Comp Metabolic Eww841 AL BUMIN 3.9 g/dL 03/09/2019 Comp Metabolic Lpn079 TP RO 6.4 g/dL 03/09/2019 Comp Metabolic Rbo315 GL OB 2.5 g/dL 03/09/2019 Comp Metabolic Dbo957 A/ G Ratio 1.5 Ratio 03/09/2019 Comp Metabolic Huu261 Os mo 274 mOsmo 03/09/2019 CULTURE, URINE M100 URIN E CULTURE See Note 02/03/2019 Pt Eqt9177 PT 24.7 seconds 01/12/2019 Pt Uqs1125 INR 2.3 01/12/2019 Pt Xzj7535 Low Intensity - 1.5-2.0 01/12/2019 Pt Evk9322 Mod intensity - 2.0-3.0 01/12/2019 Pt Qys7481 Hi intensity - 3.0-4.0 01/12/2019 Cbc With [...] 27.0 pg 01/12/2019 Cbc With Differential Ord2 [place]% 11.1 % 01/12/2019 Cbc With Differential Ord2 [...] 0.92 K/ul 01/12/2019 Cbc With Differential Ord2 [place] ABS# 0.4 K/ul 01/12/2019 Cbc With Differential Ord2 Eos ABS# 0.1 K/ul 01/12/2019 Cbc With Differential Ord2 Baso ABS# 0.0 K/ul 01/12/2019 Comp Metabolic Pbx142 NA 141 mEq/L 01/12/2019 Comp Metabolic Obl196 K 3.8 mEq/L 01/12/2019 Comp Metabolic Cnb801 CL 105 mEq/L 01/12/2019 Comp Metabolic Rsj647 CO2 26.0 mEq/L 01/12/2019 Comp Metabolic Hhe350 AN ION GAP 14 01/12/2019 Comp Metabolic Nfx457 GL UCOSE 112 mg/dL 01/12/2019 Comp Metabolic Qfe427 Cr eat 1.0 mg/dL 01/12/2019 Comp Metabolic Tio309 eG FR 60 ml/min/1.73m2 01/12 Comp Metabolic Iyx869 BUN 14 mg/dL 01/12/2019 Comp Metabolic Cmz908 B/ C Ratio 14.4 Ratio 01/12/2019 Comp Metabolic Ymu672 CA LCIUM 8.8 mg/dL 01/12/2019 Comp Metabolic Zns050 AL K PHOS 60 U/L 01/12/2019 Comp Metabolic Xsv777 T(SGOT) 22 U/L 01/12/2019 Comp Metabolic Rfw312 AL T(SGPT) 22 U/L 01/12/2019 Comp Metabolic Ytm831 BI LI T 0.5 mg/dL 01/12/2019 Comp Metabolic Chh966 AL BUMIN 3.9 g/dL 01/12/2019 Comp Metabolic Lzi484 TP RO 6.5 g/dL 01/12/2019 Comp Metabolic Lqq251 GL OB 2.6 g/dL 01/12/2019 Comp Metabolic Evc871 A/ G Ratio 1.5 Ratio 01/12/2019 Comp Metabolic Prk071 Os mo 282 mOsmo 01/12/2019 Vitamin D 25 Oh Kqr2636 VITAMIN D, 25 HYDROXY 30.62 ng/mL 01/12/2019 Urine Culture Ucult Comp lete >100,000 col/ml aerobic grow th sent to ref lab 11/16/2018 Culture Urine [id number] URI NE CULTURE SEE NOTES 08/22/2018 Culture Urine [id number] Con tinued Results 08/22/2018 Urine Culture Ucult Comp lete >100,000 col/ml aerobic grow th sent to ref lab 08/19/2018 Comp Metabolic Ymu182 NA 140 mEq/L 08/01/2018 Comp Metabolic Tjf148 K 4.2 mEq/L 08/01/2018 Comp Metabolic Ssx848 CL 102 mEq/L 08/01/2018 Comp Metabolic Qbn301 CO2 27.0 mEq/L 08/01/2018 Comp Metabolic Juv948 AN ION GAP 15 08/01/2018 Comp Metabolic Clt977 GL UCOSE 107 mg/dL 08/01/2018 Comp Metabolic Reg726 Cr eat 1.0 mg/dL 08/01/2018 Comp Metabolic Ulv456 eG FR 58 ml/min/1.73m2 08/01 Comp Metabolic Kgg274 BUN 10 mg/dL 08/01/2018 Comp Metabolic Nxo306 B/ C Ratio 10.0 Ratio 08/01/2018 Comp Metabolic Lyq298 CA LCIUM 8.9 mg/dL 08/01/2018 Comp Metabolic Jvr638 AL K PHOS 68 U/L 08/01/2018 Comp Metabolic Ary370 T(SGOT) 18 U/L 08/01/2018 Comp Metabolic Ufl526 AL T(SGPT) 14 U/L 08/01/2018 Comp Metabolic Etu914 BI LI T 0.5 mg/dL 08/01/2018 Comp Metabolic Lzp964 AL BUMIN 4.0 g/dL 08/01/2018 Comp Metabolic Zhj312 TP RO 6.3 g/dL 08/01/2018 Comp Metabolic Fas438 GL OB 2.3 g/dL 08/01/2018 Comp Metabolic Muq741 A/ G Ratio 1.7 Ratio 08/01/2018 Comp Metabolic Xbk692 Os mo 279 mOsmo 08/01/2018 Tsh Ord6 [...] 27.3 pg 08/01/2018 Cbc With Differential Ord2 [place]% 9.8 % 08/01/2018 Cbc With Differential Ord2 [...] 0.79 K/ul 08/01/2018 Cbc With Differential Ord2 [place] ABS# 0.4 K/ul 08/01/2018 Cbc With Differential Ord2 Eos ABS# 0.1 K/ul 08/01/2018 Cbc With Differential Ord2 Baso ABS# 0.0 K/ul 08/01/2018 Lipid Ord30 CHOL 234 mg/dL 08/01/2018 Lipid Ord30 HDL 69.0 mg/dl 08/01/2018 Lipid Ord30 TRIG 57 mg/dL 08/01/2018 Lipid Ord30 LDL 154 mg/dL 08/01/2018 Lipid Ord30 C/HDL 3.4 Ratio 08/01/2018 Comp Metabolic Rja296 NA 137 mEq/L 09/30/2015 Comp Metabolic Pfc239 K 4.5 mEq/L 09/30/2015 Comp Metabolic Gvh998 CL 102 mEq/L 09/30/2015 Comp Metabolic Uom711 CO2 26.0 mEq/L 09/30/2015 Comp Metabolic Jaj148 AN ION GAP 14 09/30/2015 Comp Metabolic Kzd859 GL UCOSE 89 mg/dL 09/30/2015 Comp Metabolic Ssa735 Cr eat 0.8 mg/dL 09/30/2015 Comp Metabolic Gdb745 eG FR 79 ml/min/1.73m2 09/29 Comp Metabolic Knz862 BUN 14 mg/dL 09/30/2015 Comp Metabolic Pit282 B/ C Ratio 18.2 Ratio 09/30/2015 Comp Metabolic Hlw053 CA LCIUM 8.9 mg/dL 09/30/2015 Comp Metabolic Yiw556 AL K PHOS 65 U/L 09/30/2015 Comp Metabolic Axf559 T(SGOT) 26 U/L 09/30/2015 Comp Metabolic Wji285 AL T(SGPT) 18 U/L 09/30/2015 Comp Metabolic Lhd622 BI LI T 0.6 mg/dL 09/30/2015 Comp Metabolic Ryz888 AL BUMIN 3.8 g/dL 09/30/2015 Comp Metabolic Cxz709 TP RO 6.6 g/dL 09/30/2015 Comp Metabolic Kow003 GL OB 2.8 g/dL 09/30/2015 Comp Metabolic Aqm476 A/ G Ratio 1.4 Ratio 09/30/2015 Comp Metabolic Fvr964 Os mo 274 mOsmo 09/30/2015 Cbc With [...] 27.7 pg 09/30/2015 Cbc With Differential Ord2 [place]% 10.7 % 09/30/2015 Cbc With Differential Ord2 [...] 1.10 K/ul 09/30/2015 Cbc With Differential Ord2 [place] ABS# 0.6 K/ul 09/30/2015 Cbc With Differential Ord2 Eos ABS# 0.2 K/ul 09/30/2015 Cbc With Differential Ord2 Baso ABS# 0.0 K/ul 09/30/2015 Cbc With Differential Ord2 New Analyzer Notice Please note new ref ranges s tarting 08-07-2015 due to implemntation of new five part differential hematolgy analyzer. 09/30/2015 Tsh Ord6 hTSH II 1.05 uIU/mL 03/06/2015 Comp Metabolic Fkn961 NA 137 mEq/L 03/06/2015 Comp Metabolic Wwg281 K 4.3 mEq/L 03/06/2015 Comp Metabolic Puq127 CL 104 mEq/L 03/06/2015 Comp Metabolic Zjx729 CO2 28.0 mEq/L 03/06/2015 Comp Metabolic Sxa652 AN ION GAP 9 03/06/2015 Comp Metabolic Vsp981 GL UCOSE 93 mg/dL 03/06/2015 Comp Metabolic Emr518 Cr eat 0.8 mg/dL 03/06/2015 Comp Metabolic Fli170 eG FR 81 ml/min/1.73m2 03/06 Comp Metabolic Mdy950 BUN 12 mg/dL 03/06/2015 Comp Metabolic Qrd176 B/ C Ratio 16.0 Ratio 03/06/2015 Comp Metabolic Nyk351 CA LCIUM 8.9 mg/dL 03/06/2015 Comp Metabolic Aws185 AL K PHOS 56 U/L 03/06/2015 Comp Metabolic Clv676 T(SGOT) 22 U/L 03/06/2015 Comp Metabolic Oaf534 AL T(SGPT) 15 U/L 03/06/2015 Comp Metabolic Sds071 BI LI T 0.4 mg/dL 03/06/2015 Comp Metabolic Tbs132 AL BUMIN 4.0 g/dL 03/06/2015 Comp Metabolic Lau574 TP RO 6.5 g/dL 03/06/2015 Comp Metabolic Nvz316 GL OB 2.5 g/dL 03/06/2015 Comp Metabolic Hix325 A/ G Ratio 1.6 Ratio 03/06/2015 Comp Metabolic Vvb007 Os mo 273 mOsmo 03/06/2015 Vitamin D 25 Oh Iuz8808 VITAMIN D, 25 HYDROXY 28.14 ng/mL 03/06/2015 [...] Date URINALYSIS NONAUTO W /O SCOPE CPT-4: 44447 01/31/2019 URINALYSIS NONAUTO W /O SCOPE CPT-4: 34864 01/12/2019 URINALYSIS NONAUTO W /O SCOPE CPT-4: 46790 12/06/2018 URINALYSIS NONAUTO W /O SCOPE CPT-4: 03206 11/15/2018 URINALYSIS NONAUTO W /O SCOPE CPT-4: 74786 08/18/2018 ADMIN INFLUENZA VIRU S VAC CPT-4: G0008 04/20/2018 FLU VACC PRSV FREE I NC ANTIG Formatting Model/CDA Sections, Assigned to/Amparo Mims CPT-4: [id number] 04/20/2018 PPPS, SUBSEQ VISIT CPT- 4: G0439 02/09/2018 PPPS, SUBSEQ VISIT CPT- 4: G0439 02/03/2017 ADMIN INFLUENZA VIRU S VAC CPT-4: G0008 04/08/2016 ADMIN PNEUMOCOCCAL V ACCINE SNOMED CT: 90095346 CPT-4: G0009 04/08/2016 PNEUMOCOCCAL VACC [address]: 49800132 CPT-4: 21293 04/08/2016 FLU VACC PRSV FREE I NC ANTIG CPT-4: 17319 04/08/2016 Vital Signs Date Vital 03/17/2019 Blood Pressure 1: 110/52 Code: 8480-6 BMI: 40.4 Code: 15290-7 Heart Rate 1: 85 bpm Height: 5'7" SpO2: 94% Weight: 258 lbs 03/09/2019 Blood Pressure 1: 108/64 Code: 8480-6 Heart Rate 1: 86 bpm Height: 5'7" SpO2: 94% Weight: 02/23/2019 Blood Pressure 1: 120/60 Code: 8480-6 BMI: 41.2 Code: 53572-2 Heart Rate 1: 80 bpm Height: 5'7" SpO2: 95% Weight: 263 lbs 02/14/2019 Blood Pressure 1: 110/60 Code: 8480-6 BMI: 41.0 Code: 24996-7 Heart Rate 1: 81 bpm Height: 5'7" SpO2: 91% Weight: 262 lbs 01/31/2019 Blood Pressure 1: 120/56 Code: 8480-6 Heart Rate 1: 85 bpm Height: 5'7" SpO2: 96% Weight: 01/12/2019 Blood Pressure 1: 128/68 Code: 8480-6 BMI: 41.2 Code: 56314-8 Heart Rate 1: 82 bpm Height: 5'7" SpO2: 92% Weight: 263 lbs 12/06/2018 Blood Pressure 1: 118/70 Code: 8480-6 BMI: 41.5 Code: 60625-0 Heart Rate 1: 97 bpm Height: 5'7" SpO2: 96% Weight: 265 lbs 11/15/2018 Blood Pressure 1: 144/76 Code: 8480-6 BMI: 42.3 Code: 94802-9 Heart Rate 1: 82 bpm Height: 5'7" SpO2: 96% Weight: 270 lbs 10/25/2018 Blood Pressure 1: 128/80 Code: 8480-6 BMI: 42.0 Code: 68254-7 Heart Rate 1: 93 bpm Height: 5'7" SpO2: 95% Weight: 268 lbs 10/13/2018 Blood Pressure 1: 162/76 Code: 8480-6 BMI: 42.0 Code: 73847-0 Heart Rate 1: 71 bpm Height: 5'7" SpO2: 96% Weight: 268 lbs 09/15/2018 Blood Pressure 1: 154/86 Code: 8480-6 BMI: 42.9 Code: 14979-6 Heart Rate 1: 88 bpm Height: 5'7" SpO2: 94% Weight: 274 lbs 08/15/2018 Blood Pressure 1: 140/90 Code: 8480-6 BMI: 40.7 Code: 49449-8 Heart Rate 1: 70 bpm Height: 5'7" SpO2: 93% Weight: 260 lbs 08/01/2018 Blood Pressure 1: 130/70 Code: 8480-6 BMI: 40.7 Code: 97598-7 Heart Rate 1: 80 bpm Height: 5'7" SpO2: 93% Weight: 260 lbs 04/20/2018 Blood Pressure 1: 128/68 Code: 8480-6 BMI: 41.7 Code: 29500-9 Heart Rate 1: 85 bpm Height: 5'7" SpO2: 94% Weight: 266 lbs 02/09/2018 Blood Pressure 1: 118/70 Code: 8480-6 BMI: 42.1 Code: 14962-4 Heart Rate 1: 58 bpm Height: 5'7" SpO2: 94% Weight: 269 lbs 12/16/2017 Blood Pressure 1: 132/86 Code: 8480-6 BMI: 42.7 Code: 80831-1 Heart Rate 1: 63 bpm Height: 5'7" SpO2: 94% Weight: 272 lbs 14 o z 08/23/2017 Blood Pressure 1: 150/82 Code: 8480-6 BMI: 42.0 Code: 26575-3 Heart Rate 1: 66 bpm Height: 5'7" SpO2: 96% Weight: 268 lbs 02/03/2017 Blood Pressure 1: 138/72 Code: 8480-6 BMI: 41.2 Code: 02565-9 Heart Rate 1: 96 bpm Height: 5'7" SpO2: 97% Weight: 263 lbs 02/02/2017 Blood Pressure 1: 140/90 Code: 8480-6 BMI: 41.2 Code: 80658-2 Heart Rate 1: 103 bpm Height: 5'7" SpO2: 94% Weight: 263 lbs 11/26/2016 Blood Pressure 1: 152/88 Code: 8480-6 BMI: 41.0 Code: 35903-9 Heart Rate 1: 71 bpm Height: 5'7" SpO2: 94% Temperature: 37.7 (C ) / 99.8 (F) Weight: 262 lbs 10/07/2016 Blood Pressure 1: 148/82 Code: 8480-6 BMI: 41.7 Code: 29216-3 Heart Rate 1: 58 bpm Height: 5'7" SpO2: 96% Weight: 266 lbs 09/16/2016 Blood Pressure 1: 122/70 Code: 8480-6 BMI: 42.0 Code: 88188-0 Heart Rate 1: 65 bpm Height: 5'7" SpO2: 96% Weight: 268 lbs 09/07/2016 Blood Pressure 1: 154/60 Code: 8480-6 BMI: 42.3 Code: 10052-8 Heart Rate 1: 101 bpm Height: 5'7" SpO2: 97% Weight: 270 lbs 04/08/2016 Blood Pressure 1: 128/70 Code: 8480-6 BMI: 41.4 Code: 32740-2 Heart Rate 1: 62 bpm Height: 5'7" SpO2: 95% Weight: 264 lbs 8 oz 03/05/2016 Blood Pressure 1: 144/78 Code: 8480-6 Blood Pressure 1: 139/72 Code: 8480-6 BMI: 41.9 Code: 68171-0 Heart Rate 1: 71 bpm Height: 5'7" SpO2: 93% Weight: 267 lbs 8 oz 12/04/2015 Blood Pressure 1: 132/70 Code: 8480-6 BMI: 41.3 Code: 99268-4 Heart Rate 1: 56 bpm Height: 5'7" SpO2: 96% Weight: 264 lbs 11/18/2015 Blood Pressure 1: 138/72 Code: 8480-6 BMI: 41.0 Code: 30168-6 Heart Rate 1: 85 bpm Height: 5'7" SpO2: 93% Weight: 262 lbs 09/30/2015 Blood Pressure 1: 128/76 Code: 8480-6 BMI: 41.2 Code: 33256-5 Heart Rate 1: 70 bpm Height: 5'7" SpO2: 93% Weight: 263 lbs 09/09/2015 Blood Pressure 1: 138/80 Code: 8480-6 BMI: 40.3 Code: 55789-4 Heart Rate 1: 84 bpm Height: 5'7" SpO2: 95% Weight: 257 lbs 08/28/2015 Blood Pressure 1: 122/72 Code: 8480-6 BMI: 39.6 Code: 22809-7 Heart Rate 1: 75 bpm Height: 5'7" SpO2: 96% Weight: 253 lbs 07/09/2015 Blood Pressure 1: 140/78 Code: 8480-6 Blood Pressure 1: 135/78 Code: 8480-6 BMI: 39.5 Code: 42973-7 Heart Rate 1: 62 bpm Height: 5'7" SpO2: 95% Weight: 252 lbs 03/06/2015 Blood Pressure 1: 142/88 Code: 8480-6 BMI: 39.3 Code: 37945-2 Heart Rate 1: 65 bpm Height: 5'7" [...] 09/16/2016 None low back pain Quality ac jennifer 09/16/2016 None low back pain Onset and [...] Encounters Encounter Performer Loca tion Codes Date ([id number]) 61258 EST. P ATIENT, LEVEL III Diagnosis: Localized edema[ICD10: R60.0] Alis Spring MD, [facility] CPT- 4: 78198 03/17/2019 ([id number]) 97302 EST. P ATIENT, LEVEL III Diagnosis: Pain in right knee[ICD10: M25.561] Diagnosis: Localized edema[ICD10: R60.0] Alis Spring MD, [facility] CPT- 4: 29398 03/09/2019 ([id number]) 85492 EST. P ATIENT, LEVEL III Diagnosis: Urinary tract infection, site not specified[ICD10: N39.0] Diagnosis: Localized edema[ICD10: R60.0] Alis Spring MD, [facility] CPT- 4: 75687 02/23/2019 ([id number]) 83011 EST. P ATIENT, LEVEL III Diagnosis: Localized edema[ICD10: R60.0] Diagnosis: Lumbago with sciatica, right side[ICD10: M54.41] Alis Spring MD, [facility] CPT-4: 89013 02/14/2019 [id number] EST. PATIENT, LEVEL IV Diagnosis: Lumbago with sciatica, right side[ICD10: M54.41] Diagnosis: Dysuria[ICD10: R30.0] Diagnosis: Paroxysmal atrial fibrillation[ICD10: I48.0] Alis Spring MD, [facility] CPT-4: 55028 01/31/2019 ([id number]) 36192 EST. P ATIENT, LEVEL IV Diagnosis: Essential (primary) hypertension[ICD10: I10] Diagnosis: Chronic atrial fibrillation[ICD10: I48.2] Diagnosis: Localized edema[ICD10: R60.0] Diagnosis: Dysuria[ICD10: R30.0] Diagnosis: Low back pain[ICD10: M54.5] Diagnosis: Vitamin D deficiency, unspecified[ICD10: E55.9] Alis Spring MD, [facility] CPT-4: 32121 01/12/2019 ([id number]) 91633 EST. P ATIENT, LEVEL IV Diagnosis: Localized edema[ICD10: R60.0] Diagnosis: Dysuria[ICD10: R30.0] Diagnosis: Cellulitis of abdominal wall[ICD10: L03.311] Alis Spring MD, [facility] CPT-4: 32696 12/06/2018 ([id number]) 19038 EST. P ATIENT, LEVEL III Diagnosis: Dysuria[ICD10: R30.0] Diagnosis: Essential (primary) hypertension[ICD10: I10] Diagnosis: Major depressive disorder, recurrent, moderate[ICD10: F33.1] Alis Spring MD, [facility] CPT-4: 02289 11/15/2018 ([id number]) 59633 EST. P ATIENT, LEVEL IV Diagnosis: Eructation[ICD10: R14.2] Diagnosis: Nausea[ICD10: R11.0] Diagnosis: Chest pain, unspecified[ICD10: R07.9] Diagnosis: Diarrhea, unspecified[ICD10: R19.7] Alis Spring MD, [facility] CPT-4: 26707 10/25/2018 ([id number]) 00624 EST. P ATIENT, LEVEL IV Diagnosis: Essential (primary) hypertension[ICD10: I10] Diagnosis: Low back pain[ICD10: M54.5] Diagnosis: Major depressive disorder, recurrent, moderate[ICD10: F33.1] Alis Spring MD, [facility] CPT-4: 00772 10/13/2018 ([id number]) 10617 EST. P ATIENT, LEVEL IV Diagnosis: Essential (primary) hypertension[ICD10: I10] Diagnosis: Dysuria[ICD10: R30.0] Diagnosis: Low back pain[ICD10: M54.5] Alis Spring MD, [facility] CPT- 4: 61821 09/15/2018 ([id number]) 65824 EST. P ATIENT, LEVEL III Diagnosis: Essential (primary) hypertension[ICD10: I10] Diagnosis: Low back pain[ICD10: M54.5] Alis Spring MD, [facility] CPT- 4: 58017 08/15/2018 ([id number]) 89247 EST. P ATIENT, LEVEL III Diagnosis: Essential (primary) hypertension[ICD10: I10] Diagnosis: Cough[ICD10: R05] Diagnosis: Low back pain[ICD10: M54.5] Alis Spring MD, [facility] CPT- 4: 34508 08/01/2018 ([id number]) 92279 EST. P ATIENT, LEVEL IV Diagnosis: Encounter for immunization[ICD10: Z23] Diagnosis: Essential (primary) hypertension[ICD10: I10] Diagnosis: Chronic atrial fibrillation[ICD10: I48.2] Diagnosis: Major depressive disorder, recurrent, mild[ICD10: F33.0] Scarlett Spring MD, C CPT-4: 07801 04/20/2018 ([id number]) 65336 EST. P ATIENT, LEVEL IV Diagnosis: Essential (primary) hypertension[ICD10: I10] Diagnosis: Obstructive sleep apnea (adult) (pediatric)[ICD10: G47.33] Diagnosis: Chronic atrial fibrillation[ICD10: I48.2] Scarlett Spring MD, C CPT-4: 35626 12/16/2017 ([id number]) 39177 EST. P ATIENT, LEVEL IV Diagnosis: Essential (primary) hypertension[ICD10: I10] Diagnosis: Chronic atrial fibrillation[ICD10: I48.2] Scarlett Spring MD, C CPT-4: 31248 08/23/2017 ([id number]) 65659 EST. P ATIENT, LEVEL IV Diagnosis: Paroxysmal atrial fibrillation[ICD10: I48.0] Diagnosis: Essential (primary) hypertension[ICD10: I10] Scarlett Spring MD, C CPT-4: 12188 02/02/2017 62271 EST. PATIENT, LEVEL III Diagnosis: Acute laryngopharyngitis[ICD10: J06.0] Diagnosis: Cough[ICD10: R05] Diagnosis: Pleurodynia[ICD10: R07.81] Diagnosis: Other dorsalgia[ICD10: M54.89] Kassandra Spring MD, [facility] CPT-4: 52616 11/26/2016 ([id number]) 55326 EST. P ATIENT, LEVEL IV Diagnosis: Essential (primary) hypertension[ICD10: I10] Diagnosis: Pain in left knee[ICD10: M25.562] Diagnosis: Low back pain[ICD10: M54.5] Diagnosis: Major depressive disorder, recurrent, moderate[ICD10: F33.1] Scarlett Spring MD, [facility] CPT-4: 54839 10/07/2016 ([id number]) 40460 EST. P ATIENT, LEVEL IV Diagnosis: Essential (primary) hypertension[ICD10: I10] Diagnosis: Rash and other nonspecific skin eruption[ICD10: R21] Diagnosis: Major depressive disorder, recurrent, mild[ICD10: F33.0] Scarlett Spring MD, [facility] CPT-4: 45294 09/16/2016 78576 EST. PATIENT, LEVEL IV Diagnosis: Pain in left lower leg[ICD10: M79.662] Diagnosis: Pain in left knee[ICD10: M25.562] Kassandra Spring MD, [facility] CPT-4: 62686 09/07/2016 ([id number]) 22579 EST. P ATIENT, LEVEL IV Diagnosis: Encounter for immunization[ICD10: Z23] Diagnosis: Essential (primary) hypertension[ICD10: I10] Diagnosis: Mixed hyperlipidemia[ICD10: E78.2] Scarlett Spring MD, [facility] CPT- 4: 86940 04/08/2016 ([id number]) 54111 EST. P ATIENT, LEVEL III Diagnosis: Essential (primary) hypertension[ICD10: I10] Diagnosis: Shortness of breath[ICD10: R06.02] Scarlett Spring MD, [facility] CPT- 4: 01747 03/05/2016 ([id number]) 10001 EST. P ATIENT, LEVEL III Diagnosis: Chronic obstructive pulmonary disease, unspecified[ICD10: J44.9] Scarlett Spring MD, [facility] CPT-4: 07760 12/04/2015 ([id number]) 84735 EST. P ATIENT, LEVEL IV Diagnosis: Essential (primary) hypertension[ICD10: I10] Diagnosis: Allergic rhinitis due to pollen[ICD10: J30.1] Scarlett Spring MD, C CPT-4: 14469 11/18/2015 ([id number]) 38370 EST. P ATIENT, LEVEL IV Diagnosis: Localized edema[ICD10: R60.0] Diagnosis: Dysuria[ICD10: R30.0] Diagnosis: Essential (primary) hypertension[ICD10: I10] Diagnosis: Nausea[ICD10: R11.0] Alis Spring MD, [facility] CPT-4: 69630 09/30/2015 ([id number]) 34039 EST. P ATIENT, LEVEL II Diagnosis: Methicillin susceptible Staphylococcus aureus infection as the cause of diseases classified elsewhere[ICD10: B95.61] Diagnosis: Methicillin susceptible Staphylococcus aureus infection, unspecified site[ICD10: A49.01] Alis Spring MD, [facility] CPT-4: 15986 09/09/2015 ([id number]) 72591 EST. P ATIENT, LEVEL III Diagnosis: Dermatophytosis, unspecified[ICD10: B35.9] Diagnosis: Rash and other nonspecific skin eruption[ICD10: R21] Scarlett Spring MD, C CPT-4: 18961 08/28/2015 ([id number]) 92379 EST. P ATIENT, LEVEL IV Diagnosis: Essential (primary) hypertension[ICD10: I10] Diagnosis: Gastro-esophageal reflux disease without esophagitis[ICD10: K21.9] Diagnosis: Other dorsalgia[ICD10: M54.89] Scarlett Spring MD, [facility] CPT-4: 83947 07/09/2015 ([id number]) [facility] - LEVEL 4 Diagnosis: ESSENTIAL HYPERTENSION[ICD9: 401.9] Diagnosis: Osteoporosis[ICD9: 733.00] Diagnosis: Back pain[ICD9: 724.5] Diagnosis: Insomnia[ICD9: 780.52] Diagnosis: ESOPHAGEAL REFLUX[ICD9: 530.81] Scarlett Spring MD, [facility] CPT-4: 56852 03/06/2015 Plan of Care Planned Activity Notes [...] further attempt to reduce peripheral edema. 03/17/2019 Patient Education: Patient Medication Summary Completed 03/17/2019 Visit Plan: Right knee pain -xray k nee -tylenol as needed Edema-not well controlled-check labs increase lasix -compression wrap bilateral lower legs with lyle wraps -schedule appt with Dr Tinoco -follow up in the office in 10 days 03/09/2019 Appointment: Alis Muhammad WPtel: [facility]9 [phone] (30 min) Complex 03/09/2019 Patient Education: Patient [...] peripheral edema. 02/23/2019 Appointment: Alis Muhammad WPtel: [facility]6 [phone] (30 min) Complex 02/23/2019 Patient Education: Patient [...] current dose 02/14/2019 Appointment: Alis Muhammad WPtel: [phone] [phone] (15 min) Moderate 02/14/2019 Patient Education: Patient [...] becoming uncontrolled. 01/31/2019 Appointment: Alis Muhammad WPtel: [facility]5 [phone] (30 min) Complex 01/31/2019 Patient Education: Patient Medication Summary Completed 01/31/2019 Care Plan: Urine Culture Pending 01/31/2019 Care Plan: Referral Order SNOMED-CT : [id number] Pending 01/31/2019 Visit Plan: Hypertension - well [...] labs today 01/12/2019 Appointment: Alis Muhammad WPtel: [address] [place], [place] [phone] (30 min) Complex 01/12/2019 Patient Education: Patient Medication Summary Completed 01/12/2019 Patient Education: Back Pain Completed 01/12/2019 Appointment: Alis Muhammad WPtel: [facility]0 [phone] (30 min) Complex 12/13/2018 Visit Plan: Edema [...] warmth, discharge. 12/06/2018 Appointment: Alis Muhammad WPtel: [address] [place], [place] [phone] [place] [address] (30 min) Complex 12/06/2018 Patient Education: Patient [...] as indicated 11/15/2018 Appointment: Alis Muhammad WPtel: [facility]2 [place] [phone] (15 min) Moderate 11/15/2018 Patient Education: Patient [...] in ER 10/25/2018 Appointment: Alis Muhammad WPtel: [facility]2 [phone] (15 min) Moderate 10/25/2018 Patient Education: Patient [...] treatment 10/13/2018 [facility]ment[phone] ([facility] min) Moderate 10/13/2018 Patient Education: Patient [...] Ua 09/15/2018 Appointment: [phone] (30 min) Complex 09/15/2018 Patient Education: Patient [...] improve 08/15/2018 Appointment: Alis Muhammad WPtel: [facility]4 [phone] (30 min) Complex 08/15/2018 Patient Education: Patient Medication Summary Completed 08/15/2018 Patient Education: Back Pain Completed 08/15/2018 Visit Plan: HTN-lyle induced cough-s top lisinopril -start losartan -monitor blood pressure and follow up in 2 weeks Low back pain-xray lumbar spine and refer for PT 08/01/2018 Appointment: Alis Muhammad WPtel: [phone] (15 min) Moderate 08/01/2018 Patient Education: Patient Medication Summary Completed 08/01/2018 Patient Education: Back Pain Completed 08/01/2018 Care Plan: X-RAY EXAM L-S SPINE 08/28 S LOINC : 45516-4 Pending 08/01/2018 Visit Plan: Hypertension - well [...] today. 04/20/2018 Appointment: Scarlett Spring WPtel: [facility]9 [phone] (15 min) Moderate 04/20/2018 Patient Education: Patient [...] surrogate. 02/09/2018 Appointment: Kass[facility] Argueta [facility]el[phone] [facility] - Annual Wellness Visit 02/09/2018 Patient [...] night. 12/16/2017 Appointment: Scarlett Spring [facility]Ptel[phone] (15 min) Moderate 12/16/2017 Patient Education: Patient [...] uncontrolled. 08/23/2017 Appointment: Scarlett Spring WPtel: [phone] (15 min) Moderate 08/23/2017 Patient Education: Patient [...] cardiology 02/03/2017 Appointment: Kassandra Argueta WPtel: [facility] [facility] - Annual Wellness Visit 02/03/2017 Patient Education: Patient Medication Summary Completed 02/03/2017 Patient Education: Obesity Completed 02/03/2017 Visit Plan: Atrial fibrillation - a ppt with dr. tinoco today at 1pm - pt's ekg showed acute atrial fibrillation. Hypertension - well controlled - continue with current medications, continue with no added salt t. Pt has been encouraged to exercise daily. The pt has been advised to call the office if there are any acute concerns about change in blood pressure readings at home. 02/02/2017 Appointment: Scarlett Spring WPtel: [phone] [facility] (15 min) Moderate 02/02/2017 Patient Education: Patient [...] not improve. 11/26/2016 Appointment: Kassandra Argueta WPtel: [phone] [facility] (30 min) Complex 11/26/2016 Patient Education: Patient [...] pain symptoms. 10/07/2016 Appointment: Scarlett Spring WPtel: [phone] [place] (15 min) Moderate 10/07/2016 Patient Education: Patient Medication Summary Completed 10/07/2016 Patient Education: Obesity Completed 10/07/2016 Patient Education: Hypertension Completed 10/07/2016 Care Plan: VASCULAR STUDY Pending 10/04/2016 Care Plan: X-RAY EXAM OF KNEE 3 [facility] : 95931-6 Pending 10/04/2016 Visit Plan: Hypertension - well [...] paroxetine 09/16/2016 Appointment: Scarlett Spring WPtel: [phone] [place] (15 min) Moderate 09/16/2016 Patient Education: [...] not improve. 09/07/2016 Appointment: [facility] Argueta [phone] [place] (10 min) Simple 09/07/2016 Patient [...] [facility]el[phone] (15 min) Moderate 04/08/2016 Patient Education: Patient [...] [facility]el: [phone] (15 min) Moderate 03/05/2016 Patient Education: Patient Medication Summary Completed 03/05/2016 Visit Plan: COPD - chronic problem for this patient. We have reviewed chronic treatment strategy, symptom control, and plans for acute exacerbations. No changes today to the current treatment plan as the patient is stable, monitor for acute changes. anoro samples given to the patient 12/04/2015 Appointment: Scarlett Spring WPtel: [phone] (15 min) Moderate 12/04/2015 Patient Education: Patient [...] spray. 11/18/2015 Appointment: Scarlett Spring WPtel: [phone] [facility] (15 min) Moderate 11/18/2015 Patient Education: Patient Medication Summary Completed 11/18/2015 Patient Education: Obesity Completed 11/18/2015 Patient Education: Hypertension Completed 11/18/2015 Appointment: Scarlett Spring WPtel: [phone] [facility] (15 min) Moderate 11/07/2015 Visit Plan: Hypertension [...] Visit Plan: MSSA of groin and under ibsjjtb-eujuhcmiz-hsyfer bactrim and call if rash does not [...] report. 08/28/2015 Appointment: Scarlett Spring WPtel: [phone] (15 min) Moderate 08/28/2015 Patient Education: Patient [...] improving. 07/09/2015 Appointment: Scarlett Spring WPtel: [phone] [facility] (15 min) Moderate 07/09/2015 Patient Education: Patient Medication Summary Completed 07/09/2015 Patient Education: Hypertension Completed 07/09/2015 Visit Plan: Hypertension - well con stalinlled - continue with current medications, continue with [...] improving. 03/06/2015 Appointment: Scarlett Spring WPtel: [facility] [place] (S[facility] New Patient 03/06/2015 Patient Education: [...] will find out if anyone comes to [place] check UA start probiotic daily . Hypertension [...] pain -refer to pain management Dysuria-check Ua CHECK URINE TODAY . Hypertension - well [...] medications. Dysuria- culture urine -treat as indicated d/c losartan start valsartan 160mg daily increase [...] patient. Low back pain -improved-continue current treatment CALL WEDNESDAY IF RASH NOT COMPLETELY RESOLVED . MSSA of groin and under breasts-improv ing-finish bactrim and call if rash does not completely resolve Ibuprofen 600mg thre e times a s [...] pain is worsening or does not improve. COMPRESSION STOCKING S . Edema - pt has been advised to elevate legs to prevent dependent edema, compression has been recommended to help to naturally decrease peripheral edema. Diuretic use has been discussed and pt has been instructed in appropriate use of such medication as necessary to further attempt to reduce peripheral edema. Chronic back pain -improved with gabapentin -continue current dose . Medicare Exam - to day we [...] for health care surrogate. . Rash - dermatophyt osis - recommended oral diflucan, topical nystatin cream, rtc in 10 days to assure healing. check of culture - may need to consider treatment with antibiotic depending on the groin culture report. check UA IF YOU HAVE A UTI [...] change in symptoms, worsening redness, warmth, discharge. STOP LISINOPRIL -STA RT LOSARATAN 25MG DAILY FOLLOW UP IN 2 WEEKS TO RE-EVALUATE COUGH XRAY LUMBAR SPINE PHYSICAL THERAPY WITH DIOGO PERES . HTN-lyle induced cough-stop lisinopril -start losartan -monitor blood pressure and follow up in 2 weeks Low back pain-xray lumbar spine and refer for PT STOP BACTRIM START CIPRO 500MG TWICE DAILY [...] further attempt to reduce peripheral edema. . Atrial fibrillatio n - appt with [...] pressure readings at home. . Hypertension - wel l controlled - continue with current medications, continue with no added salt diet. Pt has been encouraged to exercise daily. The pt has been advised to call the office if there are any acute concerns about change in blood pressure readings at home. Rash - continue current treatment. Depression - RX for paroxetine . Hypertension - wel l controlled - [...] today mammogram order take two of the metr oprolol succinate [...] spray in the nasal steroid allergy spray. XRAY LUMBAR SPINE CHECK LABS UA TODAY [...] negative Vitamin d def-check with labs today . Hypertension - wel l controlled - [...] or if any worse bolster pillow or [place] mbar support pillow [...] are not improving. . Medicare Exam - to day we [...] A. Fib yesterday - Defer to cardiology GABAPENTIN 100MG THR EE TIMES DAILY UA [...] rate is becoming uncontrolled. . Hypertension - wel l controlled - [...] break through pain symptoms. . Hypertension - wel l controlled - [...]
--- OUTSIDE RECORDS SUMMARY | 2020-01-23 13:48 | XMS REPORT | CCD ---
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 Role Phone PP Unavailable CCM Unavailable Summary Purpose Interface Exchange Insurance Providers Payer name Policy type / Coverage type Covered libertarian ID Effective Begin Date Effective End Date WPS Medicare Part B Medicare Part B [id number] Unknown ISABELLA CPA Exchange LIFE [employer] Medicare Part B [id number] Unkn own Family history Mother Diagnosis Age At Onset Hypertension Unknown Heart Attack Unknown Brother Diagnosis Age At Onset Heart disease Unknown Runs in the family Diagnosis Age At Onset Heart disease Unknown Daughter Diagnosis Age At Onset Heart Attack Unknown Hyperlipidemia Unknown Hypertension Unknown Social History Social History Element Codes Description Effective Dates Number of children Unknown 2 daughter lives in [place], son - does not have contact 09/16/[address]: 7326326 Quit over 10 years ago 1990 - previously smoked 2ppd x 25 years. 11/18/2015 Marital status Unknown W idowed in 201003/06/2015 Employment Unknown Retir ed was a [employer] 03/06/2015 Allergies, Adverse Reactions, Alerts Substance Reaction [...] omeprazole 20 mg cap marina,delayed release RxNorm: 698127 Capsule(s) TAKE ONE C APSULE BY MOUTH EVERY NIGHT AT BEDTIME 03/13/2019 03/06/2020 Active Lasix 20 mg tablet RxNorm: 937744 2 Tablet(s) PO BID 03/09/2019 07/06/2019 Active 2 q am and 2 q noon terazosin 5 mg capsule RxNorm: 255974 TAKE ONE CAPSULE BY MOUTH DAILY 02/27/2019 06/26/2019 Ac tive potassium chloride E R 10 mEq tablet,extended release RxNorm: 445597 2 Tablet(s) PO daily 02/23/2019 06/22/2019 Active 3 daily x 5 days then 2 jignesh y thereafter Lasix 20 mg tablet RxNorm: 369976 2 Tablet(s) PO daily 02/23/2019 03/08/2019 Inactive take 3 daily x 5 days then 2 tab daily t herafter Cipro 500 mg tablet RxNorm: 985398 1 Tablet(s) PO BID 02/23/2019 03/01/2019 Inactive doxycycline hyclate 100 mg tablet,delayed release RxNorm: 187178 1 Tablet(s) PO BID 02/03/2019 02/02/2019 In active doxycycline hyclate 100 mg tablet,delayed release RxNorm: 000037 1 Tablet(s) PO BID an d probiotic bid 02/03/2019 02/09/2019 Inactive may use capsule if cheaper gabapentin 100 mg ca psule RxNorm: 816555 1 Capsule(s) PO TID 01/31/2019 04/30/2019 Active Ambien 10 mg tablet RxNorm: 237367 Tablet(s) TAKE ONE TABLET BY MOUTH AT BE DTIME NEEDED 01/20/2019 05/19/2019 Active Vitamin D2 50,000 un it capsule RxNorm: 1409365 1 Capsule(s) PO QW 01/18/2019 03/18/2019 Active Ambien 10 mg tablet RxNorm: 033498 Tablet(s) TAKE ONE TABLET BY MOUTH AT BE DTIME NEEDED 12/21/2018 04/18/2019 Active mupirocin 2 % topica l ointment RxNorm: 854424 1 Application TOP BID 12/06/2018 12/19/2018 Inactive doxycycline hyclate 100 mg tablet RxNorm: 3620382 1 Tablet(s) PO BID 11/21/2018 11/27/2018 Inactive can exchange for capsule if cheaper doxycycline hyclate 100 mg tablet RxNorm: 0145766 1 Tablet(s) PO BID 11/21/2018 11/20/2018 Inactive simethicone 125 mg c hewable tablet RxNorm: 333081 1 Tablet(s) PO qid pr n 10/25/2018 No Stop Date Active promethazine 25 mg t ablet RxNorm: 091106 1 Tablet(s) PO Q6 PRN 10/25/2018 No Stop Date Active paroxetine 40 mg tablet RxNorm: 1969224 1 Tablet(s) PO daily 10/13/2018 04/10/2019 Active valsartan 160 mg tablet RxNorm: 024847 1 Tablet(s) PO daily 10/13/2018 04/10/2019 Active trazodone 50 mg tablet RxNorm: 703307 TAKE ONE TABLET BY MOUTH DAILY 09/23/2018 03/21/2019 Ac tive Ambien 10 mg tablet RxNorm: 035280 TAKE ONE TABLET BY MOUTH AT BEDTIME N EEDED 09/23/2018 11/20/2018 Inactive terazosin 5 mg capsule RxNorm: 092315 TAKE ONE CAPSULE BY MOUTH DAILY 09/23/2018 02/19/2019 In active losartan 50 mg tablet RxNorm: 216265 1 Tablet(s) PO daily 09/15/2018 10/12/2018 Inactive omeprazole 20 mg cap marina,delayed release RxNorm: 649436 TAKE ONE CAPSULE BY M OUTH EVERY NIGHT AT BEDTIME 09/12/2018 03/10/2019 Inactive Keflex 500 mg capsule RxNorm: 080865 1 Capsule(s) PO TID 08/18/2018 08/17/2018 Inactive Keflex 500 mg capsule RxNorm: 607551 1 Capsule(s) PO TID 08/18/2018 08/24/2018 Inactive take probiotic while on abx paroxetine 20 mg tablet RxNorm: 7554234 TAKE ONE TABLET BY MOUTH DAILY 08/12/2018 10/12/2018 In active losartan 25 mg tablet RxNorm: 472447 1 Tablet(s) PO daily 08/01/2018 09/14/2018 Inactive losartan 25 mg tablet RxNorm: 183166 1 Tablet(s) PO daily 08/01/2018 10/12/2018 Inactive trazodone 50 mg tablet RxNorm: 426097 TAKE ONE TABLET BY MOUTH DAILY 07/25/2018 09/22/2018 In active Ambien 10 mg tablet RxNorm: 251092 Tablet(s) TAKE ONE TABLET BY MOUTH AT BE DTIME 06/24/2018 09/23/2018 Inactive trazodone 50 mg tablet RxNorm: 271061 TAKE ONE TABLET BY MOUTH DAILY 04/25/2018 07/23/2018 In active Ambien 10 mg tablet RxNorm: 559089 Tablet(s) TAKE ONE TABLET BY MOUTH AT BE DTIME 03/23/2018 06/19/2018 Inactive terazosin 5 mg capsule RxNorm: 363828 TAKE ONE CAPSULE BY MOUTH DAILY 03/14/2018 09/09/2018 In active Ambien 10 mg tablet RxNorm: 648101 Tablet(s) TAKE ONE TABLET BY MOUTH AT BE DTIME 01/18/2018 09/14/2018 Inactive trazodone 50 mg tablet RxNorm: 794345 TAKE ONE TABLET BY MOUTH ONCE DAILY 01/10/2018 03/22/2018 In active trazodone 50 mg tablet RxNorm: 457032 Tablet(s) TAKE ONE TABLET BY MOUTH ONCE DAILY 01/10/2018 04/24/2018 Inactive Ambien 10 mg tablet RxNorm: 373063 Tablet(s) TAKE ONE TABLET BY MOUTH AT BE DTIME 10/22/2017 01/17/2018 Inactive trazodone 50 mg tablet RxNorm: 769625 TAKE ONE TABLET BY MOUTH ONCE DAILY 10/18/2017 01/09/2018 In active omeprazole 20 mg cap marina,delayed release RxNorm: 652387 TAKE ONE CAPSULE BY M OUTH ONCE DAILY AT BEDTIME 08/27/2017 09/11/2018 Inactive trazodone 50 mg tablet RxNorm: 969087 TAKE ONE TABLET BY MOUTH ONCE DAILY 08/18/2017 10/17/2017 In active Ambien 10 mg tablet RxNorm: 536564 Tablet(s) TAKE ONE TABLET BY MOUTH AT BE [facility] 08/18/2017 03/22/2018 Inactive paroxetine 20 mg tablet RxNorm: 4666189 TAKE ONE TABLET BY MOUTH ONCE DAILY 07/27/2017 08/11/2018 In active Ambien 10 mg tablet RxNorm: 540065 Tablet(s) TAKE ONE TABLET BY MOUTH AT [facility] 06/23/2017 03/22/2018 Inactive omeprazole 20 mg cap marina,delayed release RxNorm: 561927 TAKE ONE CAPSULE BY M OUTH ONCE DAILY AT BEDTIME 04/23/2017 08/20/2017 Inactive trazodone 50 mg tablet RxNorm: 309480 TAKE ONE TABLET BY MOUTH ONCE DAILY 04/13/2017 08/10/2017 In active terazosin 5 mg capsule RxNorm: 076918 Capsule(s) TAKE ONE CAPSULE BY MOUTH [facility] 04/08/2017 03/03/2018 In active Ambien 10 mg tablet RxNorm: 995804 Tablet(s) TAKE ONE TABLET BY MOUTH AT [facility] 02/17/2017 03/22/2018 Inactive Tylenol-Codeine #3 3 00 mg-30 mg tablet RxNorm: 462597 1 Tablet(s) PO QID as needed 02/02/2017 11/14/2018 In active metoprolol succinate ER 50 mg tablet,extended release 24 hr RxNorm: 658921 TAKE ONE TABLET BY MOUTH ONCE DAILY 12/23/2016 02/02/2017 Inactive Zithromax Z-Ted 250 mg tablet RxNorm: 606562 1 Tablet(s) PO UD 11/26/2016 02/16/2017 Inactive trazodone 50 mg tablet RxNorm: 792751 TAKE ONE TABLET BY MOUTH ONCE DAILY 11/12/2016 03/11/2017 In active Ambien 10 mg tablet RxNorm: 390507 Tablet(s) TAKE ONE TABLET BY MOUTH AT BE DTIME 10/22/2016 02/15/2017 Inactive paroxetine 20 mg tablet RxNorm: 3257490 1 Tablet(s) PO daily TAKE ONE TABLET BY MOUTH DAILY 09/16/2016 06/12/2017 Inactive meloxicam 7.5 mg tablet RxNorm: 942985 1 Tablet(s) PO daily 09/16/2016 11/14/2016 Inactive Protonix 40 mg table t,delayed release RxNorm: 091129 1 Tablet(s) PO daily 09/16/2016 08/22/2017 In active sucralfate 1 gram ta blet RxNorm: 041659 1 Tablet(s) PO TID 09/16/2016 08/22/2017 Inactive Ambien 10 mg tablet RxNorm: 246365 Tablet(s) TAKE ONE TABLET BY MOUTH AT BE DTIAL 08/24/2016 03/22/2018 Inactive trazodone 50 mg tablet RxNorm: 333460 Tablet(s) TAKE ONE TABLET BY MOUTH DAILY 07/29/2016 11/11/2016 In active Ambien 10 mg tablet RxNorm: 229921 TAKE ONE TABLET BY MOUTH AT BEDTIME 06/23/2016 03/22/2018 In active Ambien 10 mg tablet RxNorm: 122507 Tablet(s) TAKE ONE TABLET BY MOUTH EVERY NIGHT AT BEDTIME 06/22/2016 06/23/2016 Inactive Lasix 40 mg tablet RxNorm: 663942 1 Tablet(s) PO daily as needed for swell ing 04/03/2016 09/15/2016 In active potassium chloride E R 20 mEq tablet,extended release RxNorm: 084090 1 Tablet(s) PO daily for swelling take with lasix as needed 04/03/2016 09/15/2016 Inactive Ambien 10 mg tablet RxNorm: 109677 Tablet(s) TAKE ONE TABLET BY MOUTH EVERY NIGHT AT BEDTIME 04/03/2016 03/22/2018 Inactive omeprazole 20 mg cap marina,delayed release RxNorm: 193607 TAKE ONE CAPSULE BY M OUTH EVERY NIGHT AT BEDTIME 03/31/2016 09/15/2016 Inactive paroxetine 20 mg tablet RxNorm: 2487929 TAKE ONE TABLET BY MOUTH DAILY 03/31/2016 09/15/2016 In active trazodone 50 mg tablet RxNorm: 232401 TAKE ONE TABLET BY MOUTH DAILY 03/20/2016 07/28/2016 In active terazosin 5 mg capsule RxNorm: 920822 TAKE ONE CAPSULE BY MOUTH DAILY 03/06/2016 10/06/2016 In active Ambien 10 mg tablet RxNorm: 022785 Tablet(s) TAKE ONE TABLET BY MOUTH EVERY NIGHT AT BEDTIME 01/17/2016 04/02/2016 Inactive loratadine 10 mg tablet RxNorm: 048368 1 Tablet(s) PO daily 01/15/2016 09/15/2016 Inactive mupirocin 2 % topica l ointment RxNorm: 693020 1 Application TOP TID 11/18/2015 12/01/2015 Inactive metoprolol succinate ER 50 mg tablet,extended release 24 hr RxNorm: 455303 1 Tablet(s) PO daily 11/18/2015 11/11/2016 Inactive loratadine 10 mg tablet RxNorm: 132336 1 Tablet(s) PO daily 11/18/2015 01/14/2016 Inactive Lasix 40 mg tablet RxNorm: 804081 1 Tablet(s) PO daily as needed for swell ing 10/30/2015 11/28/2015 In active potassium chloride E R 20 mEq tablet,extended release RxNorm: 023220 1 Tablet(s) PO daily for swelling take with lasix as needed 10/30/2015 11/28/2015 Inactive Tylenol-Codeine #3 3 00 mg-30 mg tablet RxNorm: 707983 1 Tablet(s) PO QID as needed 10/25/2015 02/01/2017 In active Ambien 10 mg tablet RxNorm: 226029 Tablet(s) TAKE ONE TABLET BY MOUTH EVERY NIGHT AT BEDTIME 10/18/2015 03/22/2018 Inactive Diflucan 150 mg tablet RxNorm: 214849 1 Tablet(s) PO daily 10/01/2015 12/03/2015 Inactive Lasix 20 mg tablet RxNorm: 464562 1 Tablet(s) PO PRN fror swelling 09/27/2015 10/29/2015 In active potassium chloride E R 10 mEq capsule,extended release RxNorm: 173656 1 Capsule(s) PO PRN for swelling take with lasix 09/27/2015 10/29/2015 Inactive Bactrim DS 800 mg-16 0 mg tablet RxNorm: 819180 1 Tablet(s) PO BID 09/02/2015 09/11/2015 Inactive Bactrim DS 800 mg-16 0 mg tablet RxNorm: 870631 1 Tablet(s) PO BID 09/02/2015 09/01/2015 Inactive nystatin 100,000 uni t/gram topical cream RxNorm: 502019 1 Gram(s) TOP TID 08/28/2015 09/26/2015 In active Diflucan 150 mg tablet RxNorm: 923683 1 Tablet(s) PO daily 08/28/2015 09/06/2015 Inactive betamethasone diprop ionate 0.05 % topical ointment RxNorm: 833457 1 Application TOP TID to affected area 08/02/2015 02/01/2017 Inactive nystatin 100,000 uni t/gram topical powder RxNorm: 229353 1 Gram(s) TOP QID 07/09/2015 08/01/2015 In active Ambien 10 mg tablet RxNorm: 339865 1 Tablet(s) PO QHS 06/19/2015 06/18/2015 Inactive Ambien 10 mg tablet RxNorm: 323933 TAKE ONE TABLET BY MOUTH EVERY NIGHT AT BEDTIME 06/19/2015 09/16/2015 Inactive Vitamin D2 50,000 un it capsule RxNorm: 793283 1 Capsule(s) PO QW 03/07/2015 03/06/2015 Inactive Vitamin D2 50,000 un it capsule RxNorm: 0723030 1 Capsule(s) PO QW 03/07/2015 05/05/2015 Inactive terazosin 5 mg capsule RxNorm: 329134 1 Capsule(s) PO daily 03/06/2015 02/28/2016 Inactive [SAVINGS FOR NON-COVERED DRUGS -- BIN:00 3585, PCN: [id number], Group: XXXXX, ID# [id number], Questions: . THIS IS NOT INSURANCE.] trazodone 50 mg tablet RxNorm: 713983 1 Tablet(s) PO daily 03/06/2015 02/28/2016 Inactive paroxetine 20 mg tablet RxNorm: 0105634 1 Tablet(s) PO daily 03/06/2015 02/28/2016 Inactive Tylenol-Codeine #3 3 00 mg-30 mg tablet RxNorm: 995588 1 Tablet(s) PO QID as needed 03/06/2015 07/02/2015 In active amlodipine 10 mg tablet RxNorm: 511684 1 Tablet(s) PO daily 03/06/2015 11/17/2015 Inactive metoprolol succinate ER 25 mg tablet,extended release 24 hr RxNorm: 283690 1 Tablet(s) PO daily 03/06/2015 11/17/2015 Inactive omeprazole 20 mg cap marina,delayed release RxNorm: 700268 1 Capsule(s) PO QHS 03/06/2015 02/28/2016 In active omeprazole 20 mg cap marina,delayed release RxNorm: 637939 1 Capsule(s) PO QHS 01/31/2015 01/30/2015 In active omeprazole 20 mg cap marina,delayed release RxNorm: 149918 1 Capsule(s) PO QHS 01/31/2015 01/30/2015 In active omeprazole 20 mg cap marina,delayed release RxNorm: 124024 1 Capsule(s) PO QHS 01/31/2015 03/05/2015 In active Ambien 10 mg tablet RxNorm: 304248 1 Tablet(s) PO QHS 12/25/2014 04/21/2015 Inactive paroxetine 20 mg tablet RxNorm: 180789 1 Tablet(s) PO daily 12/25/2014 12/24/2014 Inactive Ambien 10 mg tablet RxNorm: 156621 1 Tablet(s) PO QHS 12/25/2014 12/24/2014 Inactive paroxetine 20 mg tablet RxNorm: 423620 1 Tablet(s) PO daily 12/25/2014 03/05/2015 Inactive terazosin 5 mg capsule RxNorm: 373056 1 Capsule(s) PO daily 11/23/2014 03/05/2015 Inactive [SAVINGS FOR NON-COVERED DRUGS -- BIN:00 3585, PCN: [id number], Group: XXXXX, ID# [id number], Questions: . THIS IS NOT INSURANCE.] terazosin 5 mg capsule RxNorm: 266155 1 Capsule(s) PO daily 11/23/2014 11/22/2014 Inactive Multaq 400 mg tablet RxNorm: 240853 oral No Start Date Active hydrochlorothiazide 25 mg tablet RxNorm: 639841 1 Tablet(s) PO daily No Start Date Active Vitamin D3 2,000 uni t tablet RxNorm: 406290 1 Tablet(s) PO daily No Start Date Active Zetia 10 mg tablet RxNorm: 260992 1 Tablet(s) PO daily No Start Date Active Lipitor 80 mg tablet RxNorm: 337281 1/2 Tablet(s) PO daily No Start Date Active Coumadin 4 mg tablet RxNorm: 185785 1 Tablet(s) PO daily No Start Date Active Lasix 20 mg tablet RxNorm: 294280 1 Tablet(s) PO daily No Start Date 02/22/2019 Inactive metoprolol succinate ER 25 mg tablet,extended release 24 hr RxNorm: 133016 1 Tablet(s) PO daily No Start Date 03/05/2015 Inactive Entresto 49 mg-51 mg tablet RxNorm: 8895610 1 Tablet(s) PO BID No Start Date 04/19/2018 Inactive K-Dur 10 mEq tablet, extended release RxNorm: 943696 1 Tablet(s) PO daily No Start Date 02/22/2019 Inactive sotalol 80 mg tablet RxNorm: 2375444 1 Tablet(s) PO BID No Start Date 04/19/2018 Inactive betamethasone diprop ionate 0.05 % topical ointment RxNorm: 641161 1 Application TOP TID to affected area No Start Date 08/01/2015 Inactive trazodone 50 mg tablet RxNorm: 352648 1 Tablet(s) PO daily No Start Date 03/05/2015 Inactive potassium chloride E R 10 mEq capsule,extended release RxNorm: 485576 1 Capsule(s) PO PRN for swelling take with lasix No Start Date 09/26/2015 Inactive Eliquis 5 mg tablet RxNorm: 2451052 1 Tablet(s) PO BID No Start Date 09/14/2018 Inactive amiodarone 200 mg ta blet RxNorm: 414814 1 Tablet(s) PO BID No Start Date 01/30/2019 Inactive amlodipine 10 mg tablet RxNorm: 089065 1 Tablet(s) PO daily No Start Date 03/05/2015 Inactive isosorbide mononitra te ER 30 mg tablet,extended release 24 hr RxNorm: 957845 1 Tablet(s) PO daily No Start Date 08/22/2017 Inactive aspirin 81 mg tablet ,delayed release RxNorm: 229499 1 Tablet(s) PO daily No Start Date 02/02/2017 Inactive Lasix 20 mg tablet RxNorm: 599885 1 Tablet(s) PO PRN fror swelling No Start Date 09/26/2015 Inactive lisinopril 5 mg tablet RxNorm: 685130 1 Tablet(s) PO daily No Start Date 07/31/2018 Inactive Crestor 40 mg tablet RxNorm: 189568 1 Tablet(s) PO daily No Start Date 09/15/2016 Inactive metoprolol succinate ER 100 mg tablet,extended release 24 hr RxNorm: 601228 1 Tablet(s) PO daily No Start Date 12/15/2017 Inactive Medication Administered No Medication Administered data Immunizations Vaccine Codes Date Status Influenza CVX: 141 04/20 completed Influenza CVX: 141 04/08 completed Pneumococcal (Adult) CVX: 133 04/08/2016 completed Assessments Condition Codes Effectiv e Dates Pain in right knee ICD-10: M25.561 ICD-9: 719.46 03/09/2019 Localized edema ICD-10: R60.0 ICD-9: 782.3 03/09/2019 Urinary tract infection, site not specified [...] Reason For Visit Effective Dates Notes edema 03/09/2019 Hospital Follow Up 02/23/2019 low [...] Code Item Item Code Result Date Pt [id number] PT 23.8 seconds 03/09/2019 Pt Jya5316 INR 2.2 03/09/2019 Pt Ryf7168 Low Intensity - 1.5-2.0 03/09/2019 Pt Rum2559 Mod intensity - 2.0-3.0 03/09/2019 Pt Axe9290 Hi intensity - 3.0-4.0 03/09/2019 Comp Metabolic Smk643 NA 137 mEq/L 03/09/2019 Comp Metabolic Luc932 K 4.6 mEq/L 03/09/2019 Comp Metabolic Bbs734 CL 101 mEq/L 03/09/2019 Comp Metabolic Kbq831 CO2 26.0 mEq/L 03/09/2019 Comp Metabolic Puo498 AN ION GAP 15 03/09/2019 Comp Metabolic Qac370 GL UCOSE 93 mg/dL 03/09/2019 Comp Metabolic Uxs406 Cr eat 1.2 mg/dL 03/09/2019 Comp Metabolic Yau459 eG FR 48 ml/min/1.73m2 03/09 Comp Metabolic Elt764 BUN 14 mg/dL 03/09/2019 Comp Metabolic Rgx541 B/ C Ratio 12.0 Ratio 03/09/2019 Comp Metabolic Jhr156 CA LCIUM 9.2 mg/dL 03/09/2019 Comp Metabolic Nzo796 AL K PHOS 61 U/L 03/09/2019 Comp Metabolic Gta752 T(SGOT) 29 U/L 03/09/2019 Comp Metabolic Krd109 AL T(SGPT) 22 U/L 03/09/2019 Comp Metabolic Ezx830 BI LI T 0.7 mg/dL 03/09/2019 Comp Metabolic Fdq115 AL BUMIN 3.9 g/dL 03/09/2019 Comp Metabolic Kir939 TP RO 6.4 g/dL 03/09/2019 Comp Metabolic Lsz834 GL OB 2.5 g/dL 03/09/2019 Comp Metabolic Iio721 A/ G Ratio 1.5 Ratio 03/09/2019 Comp Metabolic Dqm584 Os mo 274 mOsmo 03/09/2019 CULTURE, URINE M100 URIN E CULTURE See Note 02/03/2019 Pt Kbs6889 PT 24.7 seconds 01/12/2019 Pt Caj0933 INR 2.3 01/12/2019 Pt Ndt4305 Low Intensity - 1.5-2.0 01/12/2019 Pt Lwh3405 Mod intensity - 2.0-3.0 01/12/2019 Pt Pwy1955 Hi intensity - 3.0-4.0 01/12/2019 Cbc With [...] 27.0 pg 01/12/2019 Cbc With Differential Ord2 [place]% 11.1 % 01/12/2019 Cbc With Differential Ord2 [...] 0.92 K/ul 01/12/2019 Cbc With Differential Ord2 [place] ABS# 0.4 K/ul 01/12/2019 Cbc With Differential Ord2 Eos ABS# 0.1 K/ul 01/12/2019 Cbc With Differential Ord2 Baso ABS# 0.0 K/ul 01/12/2019 Comp Metabolic Wns254 NA 141 mEq/L 01/12/2019 Comp Metabolic Mqc721 K 3.8 mEq/L 01/12/2019 Comp Metabolic Zdh309 CL 105 mEq/L 01/12/2019 Comp Metabolic Hso659 CO2 26.0 mEq/L 01/12/2019 Comp Metabolic Pxm078 AN ION GAP 14 01/12/2019 Comp Metabolic Yme153 GL UCOSE 112 mg/dL 01/12/2019 Comp Metabolic Krs245 Cr eat 1.0 mg/dL 01/12/2019 Comp Metabolic Wzd031 eG FR 60 ml/min/1.73m2 01/12 Comp Metabolic Myk292 BUN 14 mg/dL 01/12/2019 Comp Metabolic Bzs184 B/ C Ratio 14.4 Ratio 01/12/2019 Comp Metabolic Mol543 CA LCIUM 8.8 mg/dL 01/12/2019 Comp Metabolic Yfj943 AL K PHOS 60 U/L 01/12/2019 Comp Metabolic Qvm329 T(SGOT) 22 U/L 01/12/2019 Comp Metabolic Loq717 AL T(SGPT) 22 U/L 01/12/2019 Comp Metabolic Oom390 BI LI T 0.5 mg/dL 01/12/2019 Comp Metabolic Gjq621 AL BUMIN 3.9 g/dL 01/12/2019 Comp Metabolic Hmn621 TP RO 6.5 g/dL 01/12/2019 Comp Metabolic Piy021 GL OB 2.6 g/dL 01/12/2019 Comp Metabolic Mrp973 A/ G Ratio 1.5 Ratio 01/12/2019 Comp Metabolic Fbm366 Os mo 282 mOsmo 01/12/2019 Vitamin D 25 Oh Zlx7894 VITAMIN D, 25 HYDROXY 30.62 ng/mL 01/12/2019 Urine Culture Ucult Comp lete >100,000 col/ml aerobic grow th sent to ref lab 11/16/2018 Culture Urine [id number] URI NE CULTURE SEE NOTES 08/22/2018 Culture Urine [id number] Con tinued Results 08/22/2018 Urine Culture Ucult Comp lete >100,000 col/ml aerobic grow th sent to ref lab 08/19/2018 Comp Metabolic Iyk525 NA 140 mEq/L 08/01/2018 Comp Metabolic Vfp675 K 4.2 mEq/L 08/01/2018 Comp Metabolic Jiq159 CL 102 mEq/L 08/01/2018 Comp Metabolic Sjp904 CO2 27.0 mEq/L 08/01/2018 Comp Metabolic Juk626 AN ION GAP 15 08/01/2018 Comp Metabolic Dyo589 GL UCOSE 107 mg/dL 08/01/2018 Comp Metabolic Lui695 Cr eat 1.0 mg/dL 08/01/2018 Comp Metabolic Uko177 eG FR 58 ml/min/1.73m2 08/01 Comp Metabolic Jlc714 BUN 10 mg/dL 08/01/2018 Comp Metabolic Ldm489 B/ C Ratio 10.0 Ratio 08/01/2018 Comp Metabolic Rnq443 CA LCIUM 8.9 mg/dL 08/01/2018 Comp Metabolic Acx063 AL K PHOS 68 U/L 08/01/2018 Comp Metabolic Bct834 T(SGOT) 18 U/L 08/01/2018 Comp Metabolic Bai765 AL T(SGPT) 14 U/L 08/01/2018 Comp Metabolic Yji437 BI LI T 0.5 mg/dL 08/01/2018 Comp Metabolic Sme758 AL BUMIN 4.0 g/dL 08/01/2018 Comp Metabolic Ync554 TP RO 6.3 g/dL 08/01/2018 Comp Metabolic Rvx173 GL OB 2.3 g/dL 08/01/2018 Comp Metabolic Fwb908 A/ G Ratio 1.7 Ratio 08/01/2018 Comp Metabolic Sfh308 Os mo 279 mOsmo 08/01/2018 Tsh Ord6 [...] 27.3 pg 08/01/2018 Cbc With Differential Ord2 [place]% 9.8 % 08/01/2018 Cbc With Differential Ord2 [...] 0.79 K/ul 08/01/2018 Cbc With Differential Ord2 [place] ABS# 0.4 K/ul 08/01/2018 Cbc With Differential Ord2 Eos ABS# 0.1 K/ul 08/01/2018 Cbc With Differential Ord2 Baso ABS# 0.0 K/ul 08/01/2018 Lipid Ord30 CHOL 234 mg/dL 08/01/2018 Lipid Ord30 HDL 69.0 mg/dl 08/01/2018 Lipid Ord30 TRIG 57 mg/dL 08/01/2018 Lipid Ord30 LDL 154 mg/dL 08/01/2018 Lipid Ord30 C/HDL 3.4 Ratio 08/01/2018 Comp Metabolic Vov609 NA 137 mEq/L 09/30/2015 Comp Metabolic Fmn792 K 4.5 mEq/L 09/30/2015 Comp Metabolic Qok639 CL 102 mEq/L 09/30/2015 Comp Metabolic Azn856 CO2 26.0 mEq/L 09/30/2015 Comp Metabolic Lsg000 AN ION GAP 14 09/30/2015 Comp Metabolic Vok517 GL UCOSE 89 mg/dL 09/30/2015 Comp Metabolic Acs639 Cr eat 0.8 mg/dL 09/30/2015 Comp Metabolic Yoc948 eG FR 79 ml/min/1.73m2 09/29 Comp Metabolic Rcw219 BUN 14 mg/dL 09/30/2015 Comp Metabolic Wsm948 B/ C Ratio 18.2 Ratio 09/30/2015 Comp Metabolic Qjk375 CA LCIUM 8.9 mg/dL 09/30/2015 Comp Metabolic Pjv870 AL K PHOS 65 U/L 09/30/2015 Comp Metabolic Hxe354 T(SGOT) 26 U/L 09/30/2015 Comp Metabolic Ltj105 AL T(SGPT) 18 U/L 09/30/2015 Comp Metabolic Pbi303 BI LI T 0.6 mg/dL 09/30/2015 Comp Metabolic Tnj391 AL BUMIN 3.8 g/dL 09/30/2015 Comp Metabolic Dbm261 TP RO 6.6 g/dL 09/30/2015 Comp Metabolic Otg558 GL OB 2.8 g/dL 09/30/2015 Comp Metabolic Cez470 A/ G Ratio 1.4 Ratio 09/30/2015 Comp Metabolic Kda227 Os mo 274 mOsmo 09/30/2015 Cbc With [...] 27.7 pg 09/30/2015 Cbc With Differential Ord2 [place]% 10.7 % 09/30/2015 Cbc With Differential Ord2 [...] 1.10 K/ul 09/30/2015 Cbc With Differential Ord2 [place] ABS# 0.6 K/ul 09/30/2015 Cbc With Differential Ord2 Eos ABS# 0.2 K/ul 09/30/2015 Cbc With Differential Ord2 Baso ABS# 0.0 K/ul 09/30/2015 Cbc With Differential Ord2 New Analyzer Notice Please note new ref ranges s tarting 08-07-2015 due to implemntation of new five part differential hematolgy analyzer. 09/30/2015 Tsh Ord6 hTSH II 1.05 uIU/mL 03/06/2015 Comp Metabolic Aub169 NA 137 mEq/L 03/06/2015 Comp Metabolic Mvv383 K 4.3 mEq/L 03/06/2015 Comp Metabolic Tvo241 CL 104 mEq/L 03/06/2015 Comp Metabolic Xek071 CO2 28.0 mEq/L 03/06/2015 Comp Metabolic Yfe025 AN ION GAP 9 03/06/2015 Comp Metabolic Ohl249 GL UCOSE 93 mg/dL 03/06/2015 Comp Metabolic Wtv262 Cr eat 0.8 mg/dL 03/06/2015 Comp Metabolic Kgb355 eG FR 81 ml/min/1.73m2 03/06 Comp Metabolic Mxv548 BUN 12 mg/dL 03/06/2015 Comp Metabolic Gyq765 B/ C Ratio 16.0 Ratio 03/06/2015 Comp Metabolic Dxs537 CA LCIUM 8.9 mg/dL 03/06/2015 Comp Metabolic Azz340 AL K PHOS 56 U/L 03/06/2015 Comp Metabolic Fmz974 T(SGOT) 22 U/L 03/06/2015 Comp Metabolic Lxu202 AL T(SGPT) 15 U/L 03/06/2015 Comp Metabolic Thg592 BI LI T 0.4 mg/dL 03/06/2015 Comp Metabolic Hxq953 AL BUMIN 4.0 g/dL 03/06/2015 Comp Metabolic Tvm624 TP RO 6.5 g/dL 03/06/2015 Comp Metabolic Gwu467 GL OB 2.5 g/dL 03/06/2015 Comp Metabolic Vjx693 A/ G Ratio 1.6 Ratio 03/06/2015 Comp Metabolic Hal677 Os mo 273 mOsmo 03/06/2015 Vitamin D 25 Oh [id number] VITAMIN D, 25 HYDROXY 28.14 ng/mL 03/06/2015 [...] Result Effective Dates Constitutional No recent illness 03/09/2019 Constitutional No [...] syncope Psychiatric No confusion 02/23/2019 Psychiatric anxiety 07/2018 Psychiatric depression 0 02/23/2019 Endocrine No goiter 07/2018 Musculoskeletal back pain 02/23/2019 Genitourinary/Nephrology urinary [...] General 1994 Ears/Nose/Throat lips/teeth/gingiva Overall: benign lips 01/31/2019 None Full Exam - General 1995 Ears/Nose/Throat lips/teeth/gingiva Overall: normal dentition 01/31/2019 None Full Exam - General 1995 Ears/Nose/Throat oral cavity/pharynx/larynx Overall: oral mucosa clear 01/31/2019 None Full Exam - General 1994 Ears/Nose/Throat oral cavity/pharynx/larynx Overall: oropharyngeal mucosa clear 01/31/2019 None Full Exam - General 1994 Ears/Nose/Throat oral cavity/pharynx/larynx Overall: hypopharynx benign 01/31/2019 [...] lips 10/25/2018 None Full Exam - General 1994 Ears/Nose/Throat lips/teeth/gingiva Overall: normal dentition 10/25/2018 None [...] Date URINALYSIS NONAUTO W /O SCOPE CPT-4: 04854 01/31/2019 URINALYSIS NONAUTO W /O SCOPE CPT-4: 18271 01/12/2019 URINALYSIS NONAUTO W /O SCOPE CPT-4: 69028 12/06/2018 URINALYSIS NONAUTO W /O SCOPE CPT-4: 07526 11/15/2018 URINALYSIS NONAUTO W /O SCOPE CPT-4: 23132 08/18/2018 ADMIN INFLUENZA VIRU S VAC CPT-4: G0008 04/20/2018 FLU VACC PRSV FREE I NC ANTIG Formatting Model/CDA Sections, Assigned to/Amparo Mims CPT-4: 05757Umsvurx 04/20/2018 PPPS, SUBSEQ VISIT CPT- 4: G0439 02/09/2018 PPPS, SUBSEQ VISIT CPT- 4: G0439 02/03/2017 ADMIN INFLUENZA VIRU S VAC CPT-4: G0008 04/08/2016 ADMIN PNEUMOCOCCAL V ACCINE SNOMED CT: 74197171 CPT-4: G0009 04/08/2016 PNEUMOCOCCAL VACC [address]: 62956010 CPT-4: 62744 04/08/2016 FLU VACC PRSV FREE I NC ANTIG CPT-4: 77161 04/08/2016 Vital Signs Date Vital 03/09/2019 Blood Pressure 1: 108/64 Code: 8480-6 Heart Rate 1: 86 bpm Height: 5'7" SpO2: 94% Weight: 02/23/2019 Blood Pressure 1: 120/60 Code: 8480-6 BMI: 41.2 Code: 88301-0 Heart Rate 1: 80 bpm Height: 5'7" SpO2: 95% Weight: 263 lbs 02/14/2019 Blood Pressure 1: 110/60 Code: 8480-6 BMI: 41.0 Code: 44706-2 Heart Rate 1: 81 bpm Height: 5'7" SpO2: 91% Weight: 262 lbs 01/31/2019 Blood Pressure 1: 120/56 Code: 8480-6 Heart Rate 1: 85 bpm Height: 5'7" SpO2: 96% Weight: 01/12/2019 Blood Pressure 1: 128/68 Code: 8480-6 BMI: 41.2 Code: 55813-9 Heart Rate 1: 82 bpm Height: 5'7" SpO2: 92% Weight: 263 lbs 12/06/2018 Blood Pressure 1: 118/70 Code: 8480-6 BMI: 41.5 Code: 93573-7 Heart Rate 1: 97 bpm Height: 5'7" SpO2: 96% Weight: 265 lbs 11/15/2018 Blood Pressure 1: 144/76 Code: 8480-6 BMI: 42.3 Code: 62486-7 Heart Rate 1: 82 bpm Height: 5'7" SpO2: 96% Weight: 270 lbs 10/25/2018 Blood Pressure 1: 128/80 Code: 8480-6 BMI: 42.0 Code: 74458-7 Heart Rate 1: 93 bpm Height: 5'7" SpO2: 95% Weight: 268 lbs 10/13/2018 Blood Pressure 1: 162/76 Code: 8480-6 BMI: 42.0 Code: 44678-4 Heart Rate 1: 71 bpm Height: 5'7" SpO2: 96% Weight: 268 lbs 09/15/2018 Blood Pressure 1: 154/86 Code: 8480-6 BMI: 42.9 Code: 39240-5 Heart Rate 1: 88 bpm Height: 5'7" SpO2: 94% Weight: 274 lbs 08/15/2018 Blood Pressure 1: 140/90 Code: 8480-6 BMI: 40.7 Code: 42933-8 Heart Rate 1: 70 bpm Height: 5'7" SpO2: 93% Weight: 260 lbs 08/01/2018 Blood Pressure 1: 130/70 Code: 8480-6 BMI: 40.7 Code: 35217-9 Heart Rate 1: 80 bpm Height: 5'7" SpO2: 93% Weight: 260 lbs 04/20/2018 Blood Pressure 1: 128/68 Code: 8480-6 BMI: 41.7 Code: 81473-0 Heart Rate 1: 85 bpm Height: 5'7" SpO2: 94% Weight: 266 lbs 02/09/2018 Blood Pressure 1: 118/70 Code: 8480-6 BMI: 42.1 Code: 23804-8 Heart Rate 1: 58 bpm Height: 5'7" SpO2: 94% Weight: 269 lbs 12/16/2017 Blood Pressure 1: 132/86 Code: 8480-6 BMI: 42.7 Code: 70696-4 Heart Rate 1: 63 bpm Height: 5'7" SpO2: 94% Weight: 272 lbs 14 o z 08/23/2017 Blood Pressure 1: 150/82 Code: 8480-6 BMI: 42.0 Code: 63577-5 Heart Rate 1: 66 bpm Height: 5'7" SpO2: 96% Weight: 268 lbs 02/03/2017 Blood Pressure 1: 138/72 Code: 8480-6 BMI: 41.2 Code: 80514-4 Heart Rate 1: 96 bpm Height: 5'7" SpO2: 97% Weight: 263 lbs 02/02/2017 Blood Pressure 1: 140/90 Code: 8480-6 BMI: 41.2 Code: 80563-4 Heart Rate 1: 103 bpm Height: 5'7" SpO2: 94% Weight: 263 lbs 11/26/2016 Blood Pressure 1: 152/88 Code: 8480-6 BMI: 41.0 Code: 88645-5 Heart Rate 1: 71 bpm Height: 5'7" SpO2: 94% Temperature: 37.7 (C ) / 99.8 (F) Weight: 262 lbs 10/07/2016 Blood Pressure 1: 148/82 Code: 8480-6 BMI: 41.7 Code: 56495-0 Heart Rate 1: 58 bpm Height: 5'7" SpO2: 96% Weight: 266 lbs 09/16/2016 Blood Pressure 1: 122/70 Code: 8480-6 BMI: 42.0 Code: 41055-5 Heart Rate 1: 65 bpm Height: 5'7" SpO2: 96% Weight: 268 lbs 09/07/2016 Blood Pressure 1: 154/60 Code: 8480-6 BMI: 42.3 Code: 57159-5 Heart Rate 1: 101 bpm Height: 5'7" SpO2: 97% Weight: 270 lbs 04/08/2016 Blood Pressure 1: 128/70 Code: 8480-6 BMI: 41.4 Code: 18833-0 Heart Rate 1: 62 bpm Height: 5'7" SpO2: 95% Weight: 264 lbs 8 oz 03/05/2016 Blood Pressure 1: 144/78 Code: 8480-6 Blood Pressure 1: 139/72 Code: 8480-6 BMI: 41.9 Code: 83480-2 Heart Rate 1: 71 bpm Height: 5'7" SpO2: 93% Weight: 267 lbs 8 oz 12/04/2015 Blood Pressure 1: 132/70 Code: 8480-6 BMI: 41.3 Code: 34612-1 Heart Rate 1: 56 bpm Height: 5'7" SpO2: 96% Weight: 264 lbs 11/18/2015 Blood Pressure 1: 138/72 Code: 8480-6 BMI: 41.0 Code: 52406-1 Heart Rate 1: 85 bpm Height: 5'7" SpO2: 93% Weight: 262 lbs 09/30/2015 Blood Pressure 1: 128/76 Code: 8480-6 BMI: 41.2 Code: 78010-9 Heart Rate 1: 70 bpm Height: 5'7" SpO2: 93% Weight: 263 lbs 09/09/2015 Blood Pressure 1: 138/80 Code: 8480-6 BMI: 40.3 Code: 87067-6 Heart Rate 1: 84 bpm Height: 5'7" SpO2: 95% Weight: 257 lbs 08/28/2015 Blood Pressure 1: 122/72 Code: 8480-6 BMI: 39.6 Code: 75009-7 Heart Rate 1: 75 bpm Height: 5'7" SpO2: 96% Weight: 253 lbs 07/09/2015 Blood Pressure 1: 140/78 Code: 8480-6 Blood Pressure 1: 135/78 Code: 8480-6 BMI: 39.5 Code: 85574-6 Heart Rate 1: 62 bpm Height: 5'7" SpO2: 95% Weight: 252 lbs 03/06/2015 Blood Pressure 1: 142/88 Code: 8480-6 BMI: 39.3 Code: 61246-5 Heart Rate 1: 65 bpm Height: 5'7" SpO2: 95% Weight: 251 lbs Functional Status No Functional Status data History of Present Illness Symptom Name Status Resu lt Effective Date Notes Onset and Resolution D enies ongoing 03/09/2019 [...] rs ago 10/25/2018 None Location in the [facility] area 10/25/2018 None Quality burning 10/25/2018 None [...] Safety always fastens seat belt: y 02/10/20 None Annual Medicare Wellness Exam Motor Vehicle [...] Findings palpitations 12/16/2017 None hypertension Quality bailey jeannine hypertension 08/23/2017 None hypertension Onset and Resolution [...] Encounters Encounter Performer Loca tion Codes Date ([id number]) 07687 EST. P ATIENT, LEVEL III Diagnosis: Pain in right knee[ICD10: M25.561] Diagnosis: Localized edema[ICD10: R60.0] [facility] CPT- 4: 96453 03/09/2019 ([id number]) 40746 EST. P ATIENT, LEVEL III Diagnosis: Urinary tract infection, site not specified[ICD10: N39.0] Diagnosis: Localized edema[ICD10: R60.0] [facility] CPT- 4: 69980 02/23/2019 [id number]) 50828 EST. P ATIENT, LEVEL III Diagnosis: Localized edema[ICD10: R60.0] Diagnosis: Lumbago with sciatica, right side[ICD10: M54.41] [facility] CPT-4: 91282 02/14/2019 66721 EST. PATIENT, LEVEL IV Diagnosis: Lumbago with sciatica, right side[ICD10: M54.41] Diagnosis: Dysuria[ICD10: R30.0] Diagnosis: Paroxysmal atrial fibrillation[ICD10: I48.0] [facility] CPT-4: 45975 01/31/2019 ([id number]) 33998 EST. P ATIENT, LEVEL IV Diagnosis: Essential (primary) hypertension[ICD10: I10] Diagnosis: Chronic atrial fibrillation[ICD10: I48.2] Diagnosis: Localized edema[ICD10: R60.0] Diagnosis: Dysuria[ICD10: R30.0] Diagnosis: Low back pain[ICD10: M54.5] Diagnosis: Vitamin D deficiency, unspecified[ICD10: E55.9] Alis Spring MD, [facility] CPT-4: 33409 01/12/2019 ([id number]) 31397 EST. P ATIENT, LEVEL IV Diagnosis: Localized edema[ICD10: R60.0] Diagnosis: Dysuria[ICD10: R30.0] Diagnosis: Cellulitis of abdominal wall[ICD10: L03.311] Alis Spring MD, [facility] CPT-4: 39329 12/06/2018 ([id number]) 84621 EST. P ATIENT, LEVEL III Diagnosis: Dysuria[ICD10: R30.0] Diagnosis: Essential (primary) hypertension[ICD10: I10] Diagnosis: Major depressive disorder, recurrent, moderate[ICD10: F33.1] Alis Spring MD, [facility] CPT-4: 73432 11/15/2018 ([id number]) 67307 EST. P ATIENT, LEVEL IV Diagnosis: Eructation[ICD10: R14.2] Diagnosis: Nausea[ICD10: R11.0] Diagnosis: Chest pain, unspecified[ICD10: R07.9] Diagnosis: Diarrhea, unspecified[ICD10: R19.7] Alis Spring MD, [facility] CPT-4: 29696 10/25/2018 ([id number]) 12336 EST. P ATIENT, LEVEL IV Diagnosis: Essential (primary) hypertension[ICD10: I10] Diagnosis: Low back pain[ICD10: M54.5] Diagnosis: Major depressive disorder, recurrent, moderate[ICD10: F33.1] Alis Spring MD, [facility] CPT-4: 57156 10/13/2018 ([id number]) 14797 EST. P ATIENT, LEVEL IV Diagnosis: Essential (primary) hypertension[ICD10: I10] Diagnosis: Dysuria[ICD10: R30.0] Diagnosis: Low back pain[ICD10: M54.5] Alis Spring MD, [facility] CPT- 4: 92924 09/15/2018 ([id number]) 27158 EST. P ATIENT, LEVEL III Diagnosis: Essential (primary) hypertension[ICD10: I10] Diagnosis: Low back pain[ICD10: M54.5] Alis Spring MD, [facility] CPT- 4: 42953 08/15/2018 ([id number]) 58613 EST. P ATIENT, LEVEL III Diagnosis: Essential (primary) hypertension[ICD10: I10] Diagnosis: Cough[ICD10: R05] Diagnosis: Low back pain[ICD10: M54.5] Alis Spring MD, [facility] CPT- 4: 35940 08/01/2018 ([id number]) 11223 EST. P ATIENT, LEVEL IV Diagnosis: Encounter for immunization[ICD10: Z23] Diagnosis: Essential (primary) hypertension[ICD10: I10] Diagnosis: Chronic atrial fibrillation[ICD10: I48.2] Diagnosis: Major depressive disorder, recurrent, mild[ICD10: F33.0] Scarlett [facility] CPT-4: 55431 04/20/2018 ([id number]) 59640 EST. P ATIENT, LEVEL IV Diagnosis: Essential (primary) hypertension[ICD10: I10] Diagnosis: Obstructive sleep apnea (adult) (pediatric)[ICD10: G47.33] Diagnosis: Chronic atrial fibrillation[ICD10: I48.2] [facility] CPT-4: 23522 12/16/2017 ([id number]) 21922 EST. P ATIENT, LEVEL IV Diagnosis: Essential (primary) hypertension[ICD10: I10] Diagnosis: Chronic atrial fibrillation[ICD10: I48.2] [facility] CPT-4: 49781 08/23/2017 ([id number]) 79954 EST. P ATIENT, LEVEL IV Diagnosis: Paroxysmal atrial fibrillation[ICD10: I48.0] Diagnosis: Essential (primary) hypertension[ICD10: I10] [facility] CPT-4: 21503 02/02/2017 53929 EST. PATIENT, LEVEL III Diagnosis: Acute laryngopharyngitis[ICD10: J06.0] Diagnosis: Cough[ICD10: R05] Diagnosis: Pleurodynia[ICD10: R07.81] Diagnosis: Other dorsalgia[ICD10: M54.89] Kassandra Spring MD, [facility] CPT-4: 41524 11/26/2016 ([id number]) 26995 EST. P ATIENT, LEVEL IV Diagnosis: Essential (primary) hypertension[ICD10: I10] Diagnosis: Pain in left knee[ICD10: M25.562] Diagnosis: Low back pain[ICD10: M54.5] Diagnosis: Major depressive disorder, recurrent, moderate[ICD10: F33.1] Scarlett Spring MD, [facility] CPT-4: 29405 10/07/2016 ([id number]) 93049 EST. P ATIENT, LEVEL IV Diagnosis: Essential (primary) hypertension[ICD10: I10] Diagnosis: Rash and other nonspecific skin eruption[ICD10: R21] Diagnosis: Major depressive disorder, recurrent, mild[ICD10: F33.0] [facility]lett [facility] CPT-4: 58265 09/16/2016 07452 EST. PATIENT, LEVEL IV Diagnosis: Pain in left lower leg[ICD10: M79.662] Diagnosis: Pain in left knee[ICD10: M25.562] Kassandra Spring MD, [facility] CPT-4: 96859 09/07/2016 ([id number]) 68710 EST. P ATIENT, LEVEL IV Diagnosis: Encounter for immunization[ICD10: Z23] Diagnosis: Essential (primary) hypertension[ICD10: I10] Diagnosis: Mixed hyperlipidemia[ICD10: E78.2] Scarlett Spring MD, [facility] CPT- 4: 39953 04/08/2016 ([id number]) 32041 EST. P ATIENT, LEVEL III Diagnosis: Essential (primary) hypertension[ICD10: I10] Diagnosis: Shortness of breath[ICD10: R06.02] Scarlett Spring MD, [facility] CPT- 4: 49343 03/05/2016 ([id number]) 97236 EST. P ATIENT, LEVEL III Diagnosis: Chronic obstructive pulmonary disease, unspecified[ICD10: J44.9] Scarlett Spring MD, [facility] CPT-4: 46942 12/04/2015 ([id number]) 97060 EST. P ATIENT, LEVEL IV Diagnosis: Essential (primary) hypertension[ICD10: I10] Diagnosis: Allergic rhinitis due to pollen[ICD10: J30.1] Scarlett Spring MD, [facility] CPT-4: 02637 11/18/2015 ([id number]) 82197 EST. P ATIENT, LEVEL IV Diagnosis: Localized edema[ICD10: R60.0] Diagnosis: Dysuria[ICD10: R30.0] Diagnosis: Essential (primary) hypertension[ICD10: I10] Diagnosis: Nausea[ICD10: R11.0] Alis Spring MD, [facility] CPT-4: 80833 09/30/2015 ([id number]) 58409 EST. P ATIENT, LEVEL II Diagnosis: Methicillin susceptible Staphylococcus aureus infection as the cause of diseases classified elsewhere[ICD10: B95.61] Diagnosis: Methicillin susceptible Staphylococcus aureus infection, unspecified site[ICD10: A49.01] Alis Spring MD, [facility] CPT-4: 68766 09/09/2015 ([id number]) 27212 EST. P ATIENT, LEVEL III Diagnosis: Dermatophytosis, unspecified[ICD10: B35.9] Diagnosis: Rash and other nonspecific skin eruption[ICD10: R21] Scarlett Spirng MD, [facility] CPT-4: 65969 08/28/2015 ([id number]) 01260 EST. P ATIENT, LEVEL IV Diagnosis: Essential (primary) hypertension[ICD10: I10] Diagnosis: Gastro-esophageal reflux disease without esophagitis[ICD10: K21.9] Diagnosis: Other dorsalgia[ICD10: M54.89] Scarlett Spring MD, [facility] CPT-4: 50835 07/09/2015 ([id number]) OFFICE VISI T, [facility] - LEVEL 4 Diagnosis: ESSENTIAL HYPERTENSION[ICD9: 401.9] Diagnosis: Osteoporosis[ICD9: 733.00] Diagnosis: Back pain[ICD9: 724.5] Diagnosis: Insomnia[ICD9: 780.52] Diagnosis: ESOPHAGEAL REFLUX[ICD9: 530.81] [facility] CPT-4: 49430 03/06/2015 Plan of Care Planned Activity Notes C odes Status Date Visit Plan: Right knee pain -xray k nee -tylenol as needed Edema-not well controlled-check labs increase lasix -compression wrap bilateral lower legs with lyle wraps -schedule appt with Dr Tinoco -follow up in the office in 10 days 03/09/2019 Appointment: Alis Muhammad WPtel: [address] [place], [place] [phone] (30 min) Complex 03/09/2019 Patient Education: Patient [...] peripheral edema. 02/23/2019 Appointment: Alis Muhammad WPtel: [address] [place], [place] [phone] (30 min) Complex 02/23/2019 Patient Education: Patient [...] current dose 02/14/2019 Appointment: Alis Muhammad WPtel: [address] [place], [place] [phone] (15 min) Moderate 02/14/2019 Patient Education: Patient [...] becoming uncontrolled. 01/31/2019 Appointment: Alis Muhammad WPtel: [address] [place] [address] (30 min) Complex 01/31/2019 Patient Education: Patient Medication Summary Completed 01/31/2019 Care Plan: Urine Culture Pending 01/31/2019 Care Plan: Referral Order SNOMED-CT : [id number] Pending 01/31/2019 Visit Plan: Hypertension - well [...] labs today 01/12/2019 Appointment: Alis Muhammad WPtel: [address] [place], [place] [phone] [place] [address] (30 min) Complex 01/12/2019 Patient Education: Patient Medication Summary Completed 01/12/2019 Patient Education: Back Pain Completed 01/12/2019 Appointment: Alis Muhammad WPtel: [address] [place], [place] [phone] [place] [address] (30 min) Complex 12/13/2018 Visit Plan: Edema [...] warmth, discharge. 12/06/2018 Appointment: Alis Muhammad WPtel: [facility] (30 min) Complex 12/06/2018 Patient Education: Patient [...] as indicated 11/15/2018 Appointment: Alis Muhammad WPtel: [address] [place] [address] (15 min) Moderate 11/15/2018 Patient Education: Patient [...] in ER 10/25/2018 Appointment: Alis Muhammad WPtel: [facility] [place] [phone] (15 min) Moderate 10/25/2018 Patient Education: Patient [...] current treatment 10/13/2018 Appointment: Alis Muhammad WPtel: [phone] [phone] (15 min) Moderate 10/13/2018 Patient Education: Patient [...] Dysuria-check Ua 09/15/2018 App[facility]ment: [phone] (30 min) Complex 09/15/2018 Patient Education: [...] not improve 08/15/2018 Appointment: Alis Muhammad WPtel: [phone] (30 min) Complex 08/15/2018 Patient Education: Patient Medication Summary Completed 08/15/2018 Patient Education: Back Pain Completed 08/15/2018 Visit Plan: HTN-lyle induced cough-s top lisinopril -start losartan -monitor blood pressure and follow up in 2 weeks Low back pain-xray lumbar spine and refer for PT 08/01/2018 Appointment: Alis Muhammad WPtel: [facility]0 [phone] (15 min) Moderate 08/01/2018 Patient Education: Patient Medication Summary Completed 08/01/2018 Patient Education: Back Pain Completed 08/01/2018 Care Plan: X-RAY EXAM L-S SPINE 2/ [facility] LOINC : 45971-6 Pending 08/01/2018 Visit Plan: Hypertension - well [...] shot today. 04/20/2018 Appointment: Scarlett Spring WPtel: [facility] [place] [address] [place] (15 min) Moderate 04/20/2018 Patient Education: [...] surrogate. 02/09/2018 Appointment: Kass[facility] Argueta [facility]Ptel[phone] [facility] [facility] - Annual Wellness Visit 02/09/2018 Patient [...] every night. 12/16/2017 Appointment: Scarlett Spring WPtel: [facility]9 [facility]66[facility] (15 min) Moderate 12/16/2017 Patient [...] becoming uncontrolled. 08/23/2017 Appointment: Scarlett Spring WPtel: [facility] (15 min) Moderate 08/23/2017 Patient Education: [...] cardiology 02/03/2017 Appointment: Kassandra Argueta WPtel: [phone] - Annual Wellness Visit 02/03/2017 Patient Education: [...] home. 02/02/2017 Appointment: Scarlett Spring WPtel: [phone] [facility] (15 min) Moderate 02/02/2017 Patient Education: [...] not improve. 11/26/2016 Appointment: Kassandra Argueta WPtel: [phone] [facility] (30 min) Complex 11/26/2016 Patient Education: Patient [...] pain symptoms. 10/07/2016 Appointment: Scarlett Spring [facility]Ptel[phone] [place] (15 min) Moderate 10/07/2016 Patient Education: Patient Medication Summary Completed 10/07/2016 Patient Education: Obesity Completed 10/07/2016 Patient Education: Hypertension Completed 10/07/2016 Care Plan: VASCULAR STUDY Pending 10/04/2016 Care Plan: X-RAY EXAM OF KNEE 3 [facility] : 44394-1 Pending 10/04/2016 Visit Plan: Hypertension - well [...] for paroxetine 09/16/2016 Appointment: Scarlett Spring WPtel: [facility] [place] (15 min) Moderate 09/16/2016 Patient Education: [...] 09/07/2016 Appointment: K[facility] Argueta [facility]Ptel: [phone] [facility] [place] (10 min) Simple 09/07/2016 Patient [...] mammogram order 04/08/2016 Appointment: Scarlett Spring WPtel: [phone] [facility] [place] (15 min) Moderate 04/08/2016 Patient Education: [...] days. 03/05/2016 Appointment: Scarlett Spring WPtel: [address] [facility] [place] (15 min) Moderate 03/05/2016 Patient Education: Patient Medication Summary Completed 03/05/2016 Visit Plan: COPD - chronic problem for this patient. We have reviewed chronic treatment strategy, symptom control, and plans for acute exacerbations. No changes today to the current treatment plan as the patient is stable, monitor for acute changes. anoro samples given to the patient 12/04/2015 Appointment: Scarlett Spring WPtel: [phone] [place] (15 min) Moderate 12/04/2015 Patient Education: [...] allergy spray. 11/18/2015 Appointment: Scarlett Spring WPtel: [phone] [email or web address] (15 min) Moderate 11/18/2015 Patient Education: Patient Medication Summary Completed 11/18/2015 Patient Education: Obesity Completed 11/18/2015 Patient Education: Hypertension Completed 11/18/2015 Appointment: Scarlett Spring WPtel: [facility]2 [facility] (15 min) Moderate 11/07/2015 Visit Plan: Hypertension [...] Visit Plan: MSSA of groin and under djwzczj-rgfhtdbny-tigxhi bactrim and call if rash does not [...] report. 08/28/2015 Appointment: Scarlett Spring WPtel: [phone] [facility] (15 min) Moderate 08/28/2015 Patient Education: Patient [...] improving. 07/09/2015 Appointment: Scarlett Spring WPtel: [phone] [facility] (15 min) Moderate 07/09/2015 Patient Education: Patient [...] not improving. 03/06/2015 Appointment: Scarlett Spring WPtel: [phone] [facility] [place] (S) New Patient 03/06/2015 Patient Education: [...] - cpap every night. . Hypertension - wel l controlled - [...] will find out if anyone comes to [place] check UA start probiotic daily . Hypertension [...] daily . Hypertension - uncontrolled - the itm ent's medications have been modified as documented [...] Atrial fibrillatio n - appt with dr. barney dempsey at [...]
--- OUTSIDE RECORDS SUMMARY | 2020-01-23 13:53 | XMS REPORT | CCD ---
Author Author Jeannine Spring Organization Scarlett Spring MD, 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 Name Role Phone PP Unavailable CCM Unavailable Summary Purpose Interface Exchange Insurance Providers Payer name Policy type / Coverage type Covered green party ID Effective Begin Date Effective End Date WPS Medicare Part B Medicare Part B [id number] Unknown FILLEY [employer] Medicare Part B [id number] Unkn own Family history Mother Diagnosis Age At Onset Hypertension Unknown Heart Attack Unknown Brother Diagnosis Age At Onset Heart disease Unknown Runs in the family Diagnosis Age At Onset Heart disease Unknown Daughter Diagnosis Age At Onset Heart Attack Unknown Hyperlipidemia Unknown Hypertension Unknown Social History Social History Element Codes Description Effective Dates Number of children Unknown 2 daughter lives in [place], son - does not have contact 09/16/[address]: 6696496 Quit over 10 years ago 1990 - previously smoked 2ppd x 25 years. 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 Allergies, Adverse Reactions, Alerts Substance Reaction [...] omeprazole 20 mg cap marina,delayed release RxNorm: 111894 Capsule(s) TAKE ONE C APSULE BY MOUTH EVERY NIGHT AT BEDTIME 03/13/2019 03/06/2020 Active Lasix 20 mg tablet RxNorm: 391628 2 Tablet(s) PO BID 03/09/2019 07/06/2019 Active 2 q am and 2 q noon terazosin 5 mg capsule RxNorm: 240892 TAKE ONE CAPSULE BY MOUTH DAILY 02/27/2019 06/26/2019 Ac tive potassium chloride E R 10 mEq tablet,extended release RxNorm: 322497 2 Tablet(s) PO daily 02/23/2019 06/22/2019 Active 3 daily x 5 days then 2 jignesh y thereafter Lasix 20 mg tablet RxNorm: 742644 2 Tablet(s) PO daily 02/23/2019 03/08/2019 Inactive take 3 daily x 5 days then 2 tab daily t herafter Cipro 500 mg tablet RxNorm: 234535 1 Tablet(s) PO BID 02/23/2019 03/01/2019 Inactive doxycycline hyclate 100 mg tablet,delayed release RxNorm: 032255 1 Tablet(s) PO BID 02/03/2019 02/02/2019 In active doxycycline hyclate 100 mg tablet,delayed release RxNorm: 647144 1 Tablet(s) PO BID an d probiotic bid 02/03/2019 02/09/2019 Inactive may use capsule if cheaper gabapentin 100 mg ca psule RxNorm: 616054 1 Capsule(s) PO TID 01/31/2019 04/30/2019 Active Ambien 10 mg tablet RxNorm: 329690 Tablet(s) TAKE ONE TABLET BY MOUTH AT BE DTIME NEEDED 01/20/2019 05/19/2019 Active Vitamin D2 50,000 un it capsule RxNorm: 9705131 1 Capsule(s) PO QW 01/18/2019 03/18/2019 Active Ambien 10 mg tablet RxNorm: 380524 Tablet(s) TAKE ONE TABLET BY MOUTH AT BE DTIME NEEDED 12/21/2018 04/18/2019 Active mupirocin 2 % topica l ointment RxNorm: 547842 1 Application TOP BID 12/06/2018 12/19/2018 Inactive doxycycline hyclate 100 mg tablet RxNorm: 1232943 1 Tablet(s) PO BID 11/21/2018 11/27/2018 Inactive can exchange for capsule if cheaper doxycycline hyclate 100 mg tablet RxNorm: 6614588 1 Tablet(s) PO BID 11/21/2018 11/20/2018 Inactive simethicone 125 mg c hewable tablet RxNorm: 957643 1 Tablet(s) PO qid pr n 10/25/2018 No Stop Date Active promethazine 25 mg t ablet RxNorm: 007653 1 Tablet(s) PO Q6 PRN 10/25/2018 No Stop Date Active paroxetine 40 mg tablet RxNorm: 0073315 1 Tablet(s) PO daily 10/13/2018 04/10/2019 Active valsartan 160 mg tablet RxNorm: 793754 1 Tablet(s) PO daily 10/13/2018 04/10/2019 Active trazodone 50 mg tablet RxNorm: 089209 TAKE ONE TABLET BY MOUTH DAILY 09/23/2018 03/21/2019 Ac tive Ambien 10 mg tablet RxNorm: 290519 TAKE ONE TABLET BY MOUTH AT BEDTIME N EEDED 09/23/2018 11/20/2018 Inactive terazosin 5 mg capsule RxNorm: 765550 TAKE ONE CAPSULE BY MOUTH DAILY 09/23/2018 02/19/2019 In active losartan 50 mg tablet RxNorm: 290373 1 Tablet(s) PO daily 09/15/2018 10/12/2018 Inactive omeprazole 20 mg cap marina,delayed release RxNorm: 491458 TAKE ONE CAPSULE BY M OUTH EVERY NIGHT AT BEDTIME 09/12/2018 03/10/2019 Inactive Keflex 500 mg capsule RxNorm: 278315 1 Capsule(s) PO TID 08/18/2018 08/17/2018 Inactive Keflex 500 mg capsule RxNorm: 245617 1 Capsule(s) PO TID 08/18/2018 08/24/2018 Inactive take probiotic while on abx paroxetine 20 mg tablet RxNorm: 9688394 TAKE ONE TABLET BY MOUTH DAILY 08/12/2018 10/12/2018 In active losartan 25 mg tablet RxNorm: 318397 1 Tablet(s) PO daily 08/01/2018 09/14/2018 Inactive losartan 25 mg tablet RxNorm: 420876 1 Tablet(s) PO daily 08/01/2018 10/12/2018 Inactive trazodone 50 mg tablet RxNorm: 741241 TAKE ONE TABLET BY MOUTH DAILY 07/25/2018 09/22/2018 In active Ambien 10 mg tablet RxNorm: 977187 Tablet(s) TAKE ONE TABLET BY MOUTH AT BE DTIME 06/24/2018 09/23/2018 Inactive trazodone 50 mg tablet RxNorm: 556231 TAKE ONE TABLET BY MOUTH DAILY 04/25/2018 07/23/2018 In active Ambien 10 mg tablet RxNorm: 333526 Tablet(s) TAKE ONE TABLET BY MOUTH AT BE DTIME 03/23/2018 06/19/2018 Inactive terazosin 5 mg capsule RxNorm: 525831 TAKE ONE CAPSULE BY MOUTH DAILY 03/14/2018 09/09/2018 In active Ambien 10 mg tablet RxNorm: 183789 Tablet(s) TAKE ONE TABLET BY MOUTH AT BE DTIME 01/18/2018 09/14/2018 Inactive trazodone 50 mg tablet RxNorm: 098184 TAKE ONE TABLET BY MOUTH ONCE DAILY 01/10/2018 03/22/2018 In active trazodone 50 mg tablet RxNorm: 796803 Tablet(s) TAKE ONE TABLET BY MOUTH ONCE DAILY 01/10/2018 04/24/2018 Inactive Ambien 10 mg tablet RxNorm: 706070 Tablet(s) TAKE ONE TABLET BY MOUTH AT BE DTIME 10/22/2017 01/17/2018 Inactive trazodone 50 mg tablet RxNorm: 317511 TAKE ONE TABLET BY MOUTH ONCE DAILY 10/18/2017 01/09/2018 In active omeprazole 20 mg cap marina,delayed release RxNorm: 298313 TAKE ONE CAPSULE BY M OUTH ONCE DAILY AT BEDTIME 08/27/2017 09/11/2018 Inactive trazodone 50 mg tablet RxNorm: 170990 TAKE ONE TABLET BY MOUTH ONCE DAILY 08/18/2017 10/17/2017 In active Ambien 10 mg tablet RxNorm: 411985 Tablet(s) TAKE ONE TABLET BY MOUTH AT BE [facility] 08/18/2017 03/22/2018 Inactive paroxetine 20 mg tablet RxNorm: 8492862 TAKE ONE TABLET BY MOUTH ONCE DAILY 07/27/2017 08/11/2018 In active Ambien 10 mg tablet RxNorm: 865364 Tablet(s) TAKE ONE TABLET BY MOUTH AT [facility] 06/23/2017 03/22/2018 Inactive omeprazole 20 mg cap marina,delayed release RxNorm: 942399 TAKE ONE CAPSULE BY M OUTH ONCE DAILY AT BEDTIME 04/23/2017 08/20/2017 Inactive trazodone 50 mg tablet RxNorm: 541062 TAKE ONE TABLET BY MOUTH ONCE DAILY 04/13/2017 08/10/2017 In active terazosin 5 mg capsule RxNorm: 631050 Capsule(s) TAKE ONE CAPSULE BY MOUTH [facility] 04/08/2017 03/03/2018 In active Ambien 10 mg tablet RxNorm: 038873 Tablet(s) TAKE ONE TABLET BY MOUTH AT [facility] 02/17/2017 03/22/2018 Inactive Tylenol-Codeine #3 3 00 mg-30 mg tablet RxNorm: 231464 1 Tablet(s) PO QID as needed 02/02/2017 11/14/2018 In active metoprolol succinate ER 50 mg tablet,extended release 24 hr RxNorm: 726731 TAKE ONE TABLET BY MOUTH ONCE DAILY 12/23/2016 02/02/2017 Inactive Zithromax Z-Ted 250 mg tablet RxNorm: 791861 1 Tablet(s) PO UD 11/26/2016 02/16/2017 Inactive trazodone 50 mg tablet RxNorm: 264761 TAKE ONE TABLET BY MOUTH ONCE DAILY 11/12/2016 03/11/2017 In active Ambien 10 mg tablet RxNorm: 615797 Tablet(s) TAKE ONE TABLET BY MOUTH AT BE DTIME 10/22/2016 02/15/2017 Inactive paroxetine 20 mg tablet RxNorm: 2556113 1 Tablet(s) PO daily TAKE ONE TABLET BY MOUTH DAILY 09/16/2016 06/12/2017 Inactive meloxicam 7.5 mg tablet RxNorm: 891354 1 Tablet(s) PO daily 09/16/2016 11/14/2016 Inactive Protonix 40 mg table t,delayed release RxNorm: 295551 1 Tablet(s) PO daily 09/16/2016 08/22/2017 In active sucralfate 1 gram ta blet RxNorm: 599447 1 Tablet(s) PO TID 09/16/2016 08/22/2017 Inactive Ambien 10 mg tablet RxNorm: 599297 Tablet(s) TAKE ONE TABLET BY MOUTH AT BE DTIHI 08/24/2016 03/22/2018 Inactive trazodone 50 mg tablet RxNorm: 678994 Tablet(s) TAKE ONE TABLET BY MOUTH DAILY 07/29/2016 11/11/2016 In active Ambien 10 mg tablet RxNorm: 901094 TAKE ONE TABLET BY MOUTH AT BEDTIME 06/23/2016 03/22/2018 In active Ambien 10 mg tablet RxNorm: 538396 Tablet(s) TAKE ONE TABLET BY MOUTH EVERY NIGHT AT BEDTIME 06/22/2016 06/23/2016 Inactive Lasix 40 mg tablet RxNorm: 428698 1 Tablet(s) PO daily as needed for swell ing 04/03/2016 09/15/2016 In active potassium chloride E R 20 mEq tablet,extended release RxNorm: 309382 1 Tablet(s) PO daily for swelling take with lasix as needed 04/03/2016 09/15/2016 Inactive Ambien 10 mg tablet RxNorm: 776450 Tablet(s) TAKE ONE TABLET BY MOUTH EVERY NIGHT AT BEDTIME 04/03/2016 03/22/2018 Inactive omeprazole 20 mg cap marina,delayed release RxNorm: 748728 TAKE ONE CAPSULE BY M OUTH EVERY NIGHT AT BEDTIME 03/31/2016 09/15/2016 Inactive paroxetine 20 mg tablet RxNorm: 1432886 TAKE ONE TABLET BY MOUTH DAILY 03/31/2016 09/15/2016 In active trazodone 50 mg tablet RxNorm: 012142 TAKE ONE TABLET BY MOUTH DAILY 03/20/2016 07/28/2016 In active terazosin 5 mg capsule RxNorm: 543461 TAKE ONE CAPSULE BY MOUTH DAILY 03/06/2016 10/06/2016 In active Ambien 10 mg tablet RxNorm: 893041 Tablet(s) TAKE ONE TABLET BY MOUTH EVERY NIGHT AT BEDTIME 01/17/2016 04/02/2016 Inactive loratadine 10 mg tablet RxNorm: 937025 1 Tablet(s) PO daily 01/15/2016 09/15/2016 Inactive mupirocin 2 % topica l ointment RxNorm: 528984 1 Application TOP TID 11/18/2015 12/01/2015 Inactive metoprolol succinate ER 50 mg tablet,extended release 24 hr RxNorm: 857311 1 Tablet(s) PO daily 11/18/2015 11/11/2016 Inactive loratadine 10 mg tablet RxNorm: 854675 1 Tablet(s) PO daily 11/18/2015 01/14/2016 Inactive Lasix 40 mg tablet RxNorm: 350671 1 Tablet(s) PO daily as needed for swell ing 10/30/2015 11/28/2015 In active potassium chloride E R 20 mEq tablet,extended release RxNorm: 135576 1 Tablet(s) PO daily for swelling take with lasix as needed 10/30/2015 11/28/2015 Inactive Tylenol-Codeine #3 3 00 mg-30 mg tablet RxNorm: 360765 1 Tablet(s) PO QID as needed 10/25/2015 02/01/2017 In active Ambien 10 mg tablet RxNorm: 741216 Tablet(s) TAKE ONE TABLET BY MOUTH EVERY NIGHT AT BEDTIME 10/18/2015 03/22/2018 Inactive Diflucan 150 mg tablet RxNorm: 324882 1 Tablet(s) PO daily 10/01/2015 12/03/2015 Inactive Lasix 20 mg tablet RxNorm: 306028 1 Tablet(s) PO PRN fror swelling 09/27/2015 10/29/2015 In active potassium chloride E R 10 mEq capsule,extended release RxNorm: 092795 1 Capsule(s) PO PRN for swelling take with lasix 09/27/2015 10/29/2015 Inactive Bactrim DS 800 mg-16 0 mg tablet RxNorm: 938127 1 Tablet(s) PO BID 09/02/2015 09/11/2015 Inactive Bactrim DS 800 mg-16 0 mg tablet RxNorm: 585740 1 Tablet(s) PO BID 09/02/2015 09/01/2015 Inactive nystatin 100,000 uni t/gram topical cream RxNorm: 641437 1 Gram(s) TOP TID 08/28/2015 09/26/2015 In active Diflucan 150 mg tablet RxNorm: 314696 1 Tablet(s) PO daily 08/28/2015 09/06/2015 Inactive betamethasone diprop ionate 0.05 % topical ointment RxNorm: 048380 1 Application TOP TID to affected area 08/02/2015 02/01/2017 Inactive nystatin 100,000 uni t/gram topical powder RxNorm: 508299 1 Gram(s) TOP QID 07/09/2015 08/01/2015 In active Ambien 10 mg tablet RxNorm: 041191 1 Tablet(s) PO QHS 06/19/2015 06/18/2015 Inactive Ambien 10 mg tablet RxNorm: 213562 TAKE ONE TABLET BY MOUTH EVERY NIGHT AT BEDTIME 06/19/2015 09/16/2015 Inactive Vitamin D2 50,000 un it capsule RxNorm: 564573 1 Capsule(s) PO QW 03/07/2015 03/06/2015 Inactive Vitamin D2 50,000 un it capsule RxNorm: 3153312 1 Capsule(s) PO QW 03/07/2015 05/05/2015 Inactive terazosin 5 mg capsule RxNorm: 815981 1 Capsule(s) PO daily 03/06/2015 02/28/2016 Inactive [SAVINGS FOR NON-COVERED DRUGS -- BIN:00 3585, PCN: [id number], Group: XXXXX, ID# [id number], Questions: . THIS IS NOT INSURANCE.] trazodone 50 mg tablet RxNorm: 318586 1 Tablet(s) PO daily 03/06/2015 02/28/2016 Inactive paroxetine 20 mg tablet RxNorm: 4982830 1 Tablet(s) PO daily 03/06/2015 02/28/2016 Inactive Tylenol-Codeine #3 3 00 mg-30 mg tablet RxNorm: 822037 1 Tablet(s) PO QID as needed 03/06/2015 07/02/2015 In active amlodipine 10 mg tablet RxNorm: 472063 1 Tablet(s) PO daily 03/06/2015 11/17/2015 Inactive metoprolol succinate ER 25 mg tablet,extended release 24 hr RxNorm: 539042 1 Tablet(s) PO daily 03/06/2015 11/17/2015 Inactive omeprazole 20 mg cap marina,delayed release RxNorm: 894444 1 Capsule(s) PO QHS 03/06/2015 02/28/2016 In active omeprazole 20 mg cap marina,delayed release RxNorm: 529005 1 Capsule(s) PO QHS 01/31/2015 01/30/2015 In active omeprazole 20 mg cap marina,delayed release RxNorm: 754397 1 Capsule(s) PO QHS 01/31/2015 01/30/2015 In active omeprazole 20 mg cap marina,delayed release RxNorm: 883491 1 Capsule(s) PO QHS 01/31/2015 03/05/2015 In active Ambien 10 mg tablet RxNorm: 974468 1 Tablet(s) PO QHS 12/25/2014 04/21/2015 Inactive paroxetine 20 mg tablet RxNorm: 894356 1 Tablet(s) PO daily 12/25/2014 12/24/2014 Inactive Ambien 10 mg tablet RxNorm: 658390 1 Tablet(s) PO QHS 12/25/2014 12/24/2014 Inactive paroxetine 20 mg tablet RxNorm: 911634 1 Tablet(s) PO daily 12/25/2014 03/05/2015 Inactive terazosin 5 mg capsule RxNorm: 490085 1 Capsule(s) PO daily 11/23/2014 03/05/2015 Inactive [SAVINGS FOR NON-COVERED DRUGS -- BIN:00 3585, PCN: [id number], Group: XXXXX, ID# [id number], Questions: . THIS IS NOT INSURANCE.] terazosin 5 mg capsule RxNorm: 497509 1 Capsule(s) PO daily 11/23/2014 11/22/2014 Inactive Multaq 400 mg tablet RxNorm: 352658 oral No Start Date Active hydrochlorothiazide 25 mg tablet RxNorm: 440863 1 Tablet(s) PO daily No Start Date Active Vitamin D3 2,000 uni t tablet RxNorm: 105120 1 Tablet(s) PO daily No Start Date Active Zetia 10 mg tablet RxNorm: 250877 1 Tablet(s) PO daily No Start Date Active Lipitor 80 mg tablet RxNorm: 985620 1/2 Tablet(s) PO daily No Start Date Active Coumadin 4 mg tablet RxNorm: 549143 1 Tablet(s) PO daily No Start Date Active Lasix 20 mg tablet RxNorm: 817899 1 Tablet(s) PO daily No Start Date 02/22/2019 Inactive metoprolol succinate ER 25 mg tablet,extended release 24 hr RxNorm: 064495 1 Tablet(s) PO daily No Start Date 03/05/2015 Inactive Entresto 49 mg-51 mg tablet RxNorm: 0719761 1 Tablet(s) PO BID No Start Date 04/19/2018 Inactive K-Dur 10 mEq tablet, extended release RxNorm: 897325 1 Tablet(s) PO daily No Start Date 02/22/2019 Inactive sotalol 80 mg tablet RxNorm: 7676623 1 Tablet(s) PO BID No Start Date 04/19/2018 Inactive betamethasone diprop ionate 0.05 % topical ointment RxNorm: 633096 1 Application TOP TID to affected area No Start Date 08/01/2015 Inactive trazodone 50 mg tablet RxNorm: 022035 1 Tablet(s) PO daily No Start Date 03/05/2015 Inactive potassium chloride E R 10 mEq capsule,extended release RxNorm: 469695 1 Capsule(s) PO PRN for swelling take with lasix No Start Date 09/26/2015 Inactive Eliquis 5 mg tablet RxNorm: 5095119 1 Tablet(s) PO BID No Start Date 09/14/2018 Inactive amiodarone 200 mg ta blet RxNorm: 379494 1 Tablet(s) PO BID No Start Date 01/30/2019 Inactive amlodipine 10 mg tablet RxNorm: 000409 1 Tablet(s) PO daily No Start Date 03/05/2015 Inactive isosorbide mononitra te ER 30 mg tablet,extended release 24 hr RxNorm: 596982 1 Tablet(s) PO daily No Start Date 08/22/2017 Inactive aspirin 81 mg tablet ,delayed release RxNorm: 471742 1 Tablet(s) PO daily No Start Date 02/02/2017 Inactive Lasix 20 mg tablet RxNorm: 418848 1 Tablet(s) PO PRN fror swelling No Start Date 09/26/2015 Inactive lisinopril 5 mg tablet RxNorm: 287713 1 Tablet(s) PO daily No Start Date 07/31/2018 Inactive Crestor 40 mg tablet RxNorm: 787644 1 Tablet(s) PO daily No Start Date 09/15/2016 Inactive metoprolol succinate ER 100 mg tablet,extended release 24 hr RxNorm: 135380 1 Tablet(s) PO daily No Start Date [...] Code Item Item Code Result Date Pt [id number] PT 23.8 seconds 03/09/2019 Pt Lpn3267 INR 2.2 03/09/2019 Pt Frv2884 Low Intensity - 1.5-2.0 03/09/2019 Pt Bpy9645 Mod intensity - 2.0-3.0 03/09/2019 Pt Uvs8176 Hi intensity - 3.0-4.0 03/09/2019 Comp Metabolic Nbv334 NA 137 mEq/L 03/09/2019 Comp Metabolic Rhk533 K 4.6 mEq/L 03/09/2019 Comp Metabolic Lhd813 CL 101 mEq/L 03/09/2019 Comp Metabolic Dwv830 CO2 26.0 mEq/L 03/09/2019 Comp Metabolic Chb369 AN ION GAP 15 03/09/2019 Comp Metabolic Ggr585 GL UCOSE 93 mg/dL 03/09/2019 Comp Metabolic Uhk105 Cr eat 1.2 mg/dL 03/09/2019 Comp Metabolic Whw282 eG FR 48 ml/min/1.73m2 03/09 Comp Metabolic Fdi796 BUN 14 mg/dL 03/09/2019 Comp Metabolic Yul268 B/ C Ratio 12.0 Ratio 03/09/2019 Comp Metabolic Vbi168 CA LCIUM 9.2 mg/dL 03/09/2019 Comp Metabolic Gwv293 AL K PHOS 61 U/L 03/09/2019 Comp Metabolic Kmy446 T(SGOT) 29 U/L 03/09/2019 Comp Metabolic Fxl195 AL T(SGPT) 22 U/L 03/09/2019 Comp Metabolic Rfw905 BI LI T 0.7 mg/dL 03/09/2019 Comp Metabolic Hbf168 AL BUMIN 3.9 g/dL 03/09/2019 Comp Metabolic Rwi304 TP RO 6.4 g/dL 03/09/2019 Comp Metabolic Pxm465 GL OB 2.5 g/dL 03/09/2019 Comp Metabolic Lxh514 A/ G Ratio 1.5 Ratio 03/09/2019 Comp Metabolic Kjk298 Os mo 274 mOsmo 03/09/2019 CULTURE, URINE M100 URIN E CULTURE See Note 02/03/2019 Pt Gbv2910 PT 24.7 seconds 01/12/2019 Pt Olt2155 INR 2.3 01/12/2019 Pt Zxn6859 Low Intensity - 1.5-2.0 01/12/2019 Pt Jim1048 Mod intensity - 2.0-3.0 01/12/2019 Pt Jor6773 Hi intensity - 3.0-4.0 01/12/2019 Cbc With [...] 27.0 pg 01/12/2019 Cbc With Differential Ord2 [place]% 11.1 % 01/12/2019 Cbc With Differential Ord2 [...] 0.92 K/ul 01/12/2019 Cbc With Differential Ord2 [place] ABS# 0.4 K/ul 01/12/2019 Cbc With Differential Ord2 Eos ABS# 0.1 K/ul 01/12/2019 Cbc With Differential Ord2 Baso ABS# 0.0 K/ul 01/12/2019 Comp Metabolic Cqc091 NA 141 mEq/L 01/12/2019 Comp Metabolic Rks651 K 3.8 mEq/L 01/12/2019 Comp Metabolic Nqm337 CL 105 mEq/L 01/12/2019 Comp Metabolic Ndm310 CO2 26.0 mEq/L 01/12/2019 Comp Metabolic Cfb074 AN ION GAP 14 01/12/2019 Comp Metabolic Evg940 GL UCOSE 112 mg/dL 01/12/2019 Comp Metabolic Pmi574 Cr eat 1.0 mg/dL 01/12/2019 Comp Metabolic Erp271 eG FR 60 ml/min/1.73m2 01/12 Comp Metabolic Qwx794 BUN 14 mg/dL 01/12/2019 Comp Metabolic Igv791 B/ C Ratio 14.4 Ratio 01/12/2019 Comp Metabolic Abb210 CA LCIUM 8.8 mg/dL 01/12/2019 Comp Metabolic Xnu772 AL K PHOS 60 U/L 01/12/2019 Comp Metabolic Pwd333 T(SGOT) 22 U/L 01/12/2019 Comp Metabolic Jte221 AL T(SGPT) 22 U/L 01/12/2019 Comp Metabolic Uxj892 BI LI T 0.5 mg/dL 01/12/2019 Comp Metabolic Ibk849 AL BUMIN 3.9 g/dL 01/12/2019 Comp Metabolic Nfq034 TP RO 6.5 g/dL 01/12/2019 Comp Metabolic Dow982 GL OB 2.6 g/dL 01/12/2019 Comp Metabolic Bbb503 A/ G Ratio 1.5 Ratio 01/12/2019 Comp Metabolic Imq726 Os mo 282 mOsmo 01/12/2019 Vitamin D 25 Oh Vib0294 VITAMIN D, 25 HYDROXY 30.62 ng/mL 01/12/2019 Urine Culture Ucult Comp lete >100,000 col/ml aerobic grow th sent to ref lab 11/16/2018 Culture Urine [id number] URI NE CULTURE SEE NOTES 08/22/2018 Culture Urine [id number] Con tinued Results 08/22/2018 Urine Culture Ucult Comp lete >100,000 col/ml aerobic grow th sent to ref lab 08/19/2018 Comp Metabolic Sfn713 NA 140 mEq/L 08/01/2018 Comp Metabolic Nrj461 K 4.2 mEq/L 08/01/2018 Comp Metabolic Mbf548 CL 102 mEq/L 08/01/2018 Comp Metabolic Bzt417 CO2 27.0 mEq/L 08/01/2018 Comp Metabolic Fzq361 AN ION GAP 15 08/01/2018 Comp Metabolic Sfh305 GL UCOSE 107 mg/dL 08/01/2018 Comp Metabolic Ruw784 Cr eat 1.0 mg/dL 08/01/2018 Comp Metabolic Zxx352 eG FR 58 ml/min/1.73m2 08/01 Comp Metabolic Fdi325 BUN 10 mg/dL 08/01/2018 Comp Metabolic Qld453 B/ C Ratio 10.0 Ratio 08/01/2018 Comp Metabolic Wia905 CA LCIUM 8.9 mg/dL 08/01/2018 Comp Metabolic Knf744 AL K PHOS 68 U/L 08/01/2018 Comp Metabolic Hty473 T(SGOT) 18 U/L 08/01/2018 Comp Metabolic Ryb982 AL T(SGPT) 14 U/L 08/01/2018 Comp Metabolic Xgi117 BI LI T 0.5 mg/dL 08/01/2018 Comp Metabolic Lty995 AL BUMIN 4.0 g/dL 08/01/2018 Comp Metabolic Pgg470 TP RO 6.3 g/dL 08/01/2018 Comp Metabolic Bsw322 GL OB 2.3 g/dL 08/01/2018 Comp Metabolic Crj553 A/ G Ratio 1.7 Ratio 08/01/2018 Comp Metabolic Vui347 Os mo 279 mOsmo 08/01/2018 Tsh Ord6 [...] 27.3 pg 08/01/2018 Cbc With Differential Ord2 [place]% 9.8 % 08/01/2018 Cbc With Differential Ord2 [...] 0.79 K/ul 08/01/2018 Cbc With Differential Ord2 [place] ABS# 0.4 K/ul 08/01/2018 Cbc With Differential Ord2 Eos ABS# 0.1 K/ul 08/01/2018 Cbc With Differential Ord2 Baso ABS# 0.0 K/ul 08/01/2018 Lipid Ord30 CHOL 234 mg/dL 08/01/2018 Lipid Ord30 HDL 69.0 mg/dl 08/01/2018 Lipid Ord30 TRIG 57 mg/dL 08/01/2018 Lipid Ord30 LDL 154 mg/dL 08/01/2018 Lipid Ord30 C/HDL 3.4 Ratio 08/01/2018 Comp Metabolic Vxu112 NA 137 mEq/L 09/30/2015 Comp Metabolic Yfm682 K 4.5 mEq/L 09/30/2015 Comp Metabolic Rzw472 CL 102 mEq/L 09/30/2015 Comp Metabolic Gdj564 CO2 26.0 mEq/L 09/30/2015 Comp Metabolic Vhr359 AN ION GAP 14 09/30/2015 Comp Metabolic Yww501 GL UCOSE 89 mg/dL 09/30/2015 Comp Metabolic Xuo087 Cr eat 0.8 mg/dL 09/30/2015 Comp Metabolic Ind070 eG FR 79 ml/min/1.73m2 09/29 Comp Metabolic Qjk806 BUN 14 mg/dL 09/30/2015 Comp Metabolic Nke408 B/ C Ratio 18.2 Ratio 09/30/2015 Comp Metabolic Jcj624 CA LCIUM 8.9 mg/dL 09/30/2015 Comp Metabolic Mrs900 AL K PHOS 65 U/L 09/30/2015 Comp Metabolic Kmt358 T(SGOT) 26 U/L 09/30/2015 Comp Metabolic Glw668 AL T(SGPT) 18 U/L 09/30/2015 Comp Metabolic Lcp074 BI LI T 0.6 mg/dL 09/30/2015 Comp Metabolic Dxq964 AL BUMIN 3.8 g/dL 09/30/2015 Comp Metabolic Otg094 TP RO 6.6 g/dL 09/30/2015 Comp Metabolic Def274 GL OB 2.8 g/dL 09/30/2015 Comp Metabolic Zkl435 A/ G Ratio 1.4 Ratio 09/30/2015 Comp Metabolic Cvp544 Os mo 274 mOsmo 09/30/2015 Cbc With [...] 27.7 pg 09/30/2015 Cbc With Differential Ord2 [place]% 10.7 % 09/30/2015 Cbc With Differential Ord2 [...] 1.10 K/ul 09/30/2015 Cbc With Differential Ord2 [place] ABS# 0.6 K/ul 09/30/2015 Cbc With Differential Ord2 Eos ABS# 0.2 K/ul 09/30/2015 Cbc With Differential Ord2 Baso ABS# 0.0 K/ul 09/30/2015 Cbc With Differential Ord2 New Analyzer Notice Please note new ref ranges s tarting 08-07-2015 due to implemntation of new five part differential hematolgy analyzer. 09/30/2015 Tsh Ord6 hTSH II 1.05 uIU/mL 03/06/2015 Comp Metabolic Ewz756 NA 137 mEq/L 03/06/2015 Comp Metabolic Pjd836 K 4.3 mEq/L 03/06/2015 Comp Metabolic Ilz054 CL 104 mEq/L 03/06/2015 Comp Metabolic Fvj546 CO2 28.0 mEq/L 03/06/2015 Comp Metabolic Kdz485 AN ION GAP 9 03/06/2015 Comp Metabolic Ece563 GL UCOSE 93 mg/dL 03/06/2015 Comp Metabolic Xil750 Cr eat 0.8 mg/dL 03/06/2015 Comp Metabolic Irn505 eG FR 81 ml/min/1.73m2 03/06 Comp Metabolic Plr358 BUN 12 mg/dL 03/06/2015 Comp Metabolic Xgu596 B/ C Ratio 16.0 Ratio 03/06/2015 Comp Metabolic Sna643 CA LCIUM 8.9 mg/dL 03/06/2015 Comp Metabolic Riv888 AL K PHOS 56 U/L 03/06/2015 Comp Metabolic Smy031 T(SGOT) 22 U/L 03/06/2015 Comp Metabolic Zvg178 AL T(SGPT) 15 U/L 03/06/2015 Comp Metabolic Cks661 BI LI T 0.4 mg/dL 03/06/2015 Comp Metabolic Uax855 AL BUMIN 4.0 g/dL 03/06/2015 Comp Metabolic Jeu776 TP RO 6.5 g/dL 03/06/2015 Comp Metabolic Yxe153 GL OB 2.5 g/dL 03/06/2015 Comp Metabolic Ife328 A/ G Ratio 1.6 Ratio 03/06/2015 Comp Metabolic Xep588 Os mo 273 mOsmo 03/06/2015 Vitamin D 25 Oh Miq4063 VITAMIN D, 25 HYDROXY 28.14 ng/mL 03/06/2015 [...] Date URINALYSIS NONAUTO W /O SCOPE CPT-4: 93900 01/31/2019 URINALYSIS NONAUTO W /O SCOPE CPT-4: 50846 01/12/2019 URINALYSIS NONAUTO W /O SCOPE CPT-4: 34982 12/06/2018 URINALYSIS NONAUTO W /O SCOPE CPT-4: 99474 11/15/2018 URINALYSIS NONAUTO W /O SCOPE CPT-4: 96387 08/18/2018 ADMIN INFLUENZA VIRU S VAC CPT-4: G0008 04/20/2018 FLU VACC PRSV FREE I NC ANTIG Formatting Model/CDA Sections, Assigned to/Amparo Mims CPT-4: 28493Suqlkco 04/20/2018 PPPS, SUBSEQ VISIT CPT- 4: G0439 02/09/2018 PPPS, SUBSEQ VISIT CPT- 4: G0439 02/03/2017 ADMIN INFLUENZA VIRU S VAC CPT-4: G0008 04/08/2016 ADMIN PNEUMOCOCCAL V ACCINE SNOMED CT: [id number] CPT-4: G0009 04/08/2016 PNEUMOCOCCAL VACC [address]: 12429518 CPT-4: 26799 04/08/2016 FLU VACC PRSV FREE I NC ANTIG CPT-4: 89110 04/08/2016 Vital Signs Date Vital 03/09/2019 Blood Pressure 1: 108/64 Code: 8480-6 Heart Rate 1: 86 bpm Height: 5'7" SpO2: 94% Weight: 02/23/2019 Blood Pressure 1: 120/60 Code: 8480-6 BMI: 41.2 Code: 02724-3 Heart Rate 1: 80 bpm Height: 5'7" SpO2: 95% Weight: 263 lbs 02/14/2019 Blood Pressure 1: 110/60 Code: 8480-6 BMI: 41.0 Code: 42304-6 Heart Rate 1: 81 bpm Height: 5'7" SpO2: 91% Weight: 262 lbs 01/31/2019 Blood Pressure 1: 120/56 Code: 8480-6 Heart Rate 1: 85 bpm Height: 5'7" SpO2: 96% Weight: 01/12/2019 Blood Pressure 1: 128/68 Code: 8480-6 BMI: 41.2 Code: 65760-9 Heart Rate 1: 82 bpm Height: 5'7" SpO2: 92% Weight: 263 lbs 12/06/2018 Blood Pressure 1: 118/70 Code: 8480-6 BMI: 41.5 Code: 52489-5 Heart Rate 1: 97 bpm Height: 5'7" SpO2: 96% Weight: 265 lbs 11/15/2018 Blood Pressure 1: 144/76 Code: 8480-6 BMI: 42.3 Code: 20743-0 Heart Rate 1: 82 bpm Height: 5'7" SpO2: 96% Weight: 270 lbs 10/25/2018 Blood Pressure 1: 128/80 Code: 8480-6 BMI: 42.0 Code: 02276-7 Heart Rate 1: 93 bpm Height: 5'7" SpO2: 95% Weight: 268 lbs 10/13/2018 Blood Pressure 1: 162/76 Code: 8480-6 BMI: 42.0 Code: 32160-5 Heart Rate 1: 71 bpm Height: 5'7" SpO2: 96% Weight: 268 lbs 09/15/2018 Blood Pressure 1: 154/86 Code: 8480-6 BMI: 42.9 Code: 71140-5 Heart Rate 1: 88 bpm Height: 5'7" SpO2: 94% Weight: 274 lbs 08/15/2018 Blood Pressure 1: 140/90 Code: 8480-6 BMI: 40.7 Code: 14490-3 Heart Rate 1: 70 bpm Height: 5'7" SpO2: 93% Weight: 260 lbs 08/01/2018 Blood Pressure 1: 130/70 Code: 8480-6 BMI: 40.7 Code: 82755-6 Heart Rate 1: 80 bpm Height: 5'7" SpO2: 93% Weight: 260 lbs 04/20/2018 Blood Pressure 1: 128/68 Code: 8480-6 BMI: 41.7 Code: 43076-5 Heart Rate 1: 85 bpm Height: 5'7" SpO2: 94% Weight: 266 lbs 02/09/2018 Blood Pressure 1: 118/70 Code: 8480-6 BMI: 42.1 Code: 17365-2 Heart Rate 1: 58 bpm Height: 5'7" SpO2: 94% Weight: 269 lbs 12/16/2017 Blood Pressure 1: 132/86 Code: 8480-6 BMI: 42.7 Code: 91928-0 Heart Rate 1: 63 bpm Height: 5'7" SpO2: 94% Weight: 272 lbs 14 o z 08/23/2017 Blood Pressure 1: 150/82 Code: 8480-6 BMI: 42.0 Code: 79926-8 Heart Rate 1: 66 bpm Height: 5'7" SpO2: 96% Weight: 268 lbs 02/03/2017 Blood Pressure 1: 138/72 Code: 8480-6 BMI: 41.2 Code: 19770-2 Heart Rate 1: 96 bpm Height: 5'7" SpO2: 97% Weight: 263 lbs 02/02/2017 Blood Pressure 1: 140/90 Code: 8480-6 BMI: 41.2 Code: 75478-5 Heart Rate 1: 103 bpm Height: 5'7" SpO2: 94% Weight: 263 lbs 11/26/2016 Blood Pressure 1: 152/88 Code: 8480-6 BMI: 41.0 Code: 50725-5 Heart Rate 1: 71 bpm Height: 5'7" SpO2: 94% Temperature: 37.7 (C ) / 99.8 (F) Weight: 262 lbs 10/07/2016 Blood Pressure 1: 148/82 Code: 8480-6 BMI: 41.7 Code: 22085-1 Heart Rate 1: 58 bpm Height: 5'7" SpO2: 96% Weight: 266 lbs 09/16/2016 Blood Pressure 1: 122/70 Code: 8480-6 BMI: 42.0 Code: 22720-4 Heart Rate 1: 65 bpm Height: 5'7" SpO2: 96% Weight: 268 lbs 09/07/2016 Blood Pressure 1: 154/60 Code: 8480-6 BMI: 42.3 Code: 06777-2 Heart Rate 1: 101 bpm Height: 5'7" SpO2: 97% Weight: 270 lbs 04/08/2016 Blood Pressure 1: 128/70 Code: 8480-6 BMI: 41.4 Code: 48867-2 Heart Rate 1: 62 bpm Height: 5'7" SpO2: 95% Weight: 264 lbs 8 oz 03/05/2016 Blood Pressure 1: 144/78 Code: 8480-6 Blood Pressure 1: 139/72 Code: 8480-6 BMI: 41.9 Code: 80891-1 Heart Rate 1: 71 bpm Height: 5'7" SpO2: 93% Weight: 267 lbs 8 oz 12/04/2015 Blood Pressure 1: 132/70 Code: 8480-6 BMI: 41.3 Code: 75358-4 Heart Rate 1: 56 bpm Height: 5'7" SpO2: 96% Weight: 264 lbs 11/18/2015 Blood Pressure 1: 138/72 Code: 8480-6 BMI: 41.0 Code: 81358-2 Heart Rate 1: 85 bpm Height: 5'7" SpO2: 93% Weight: 262 lbs 09/30/2015 Blood Pressure 1: 128/76 Code: 8480-6 BMI: 41.2 Code: 22139-2 Heart Rate 1: 70 bpm Height: 5'7" SpO2: 93% Weight: 263 lbs 09/09/2015 Blood Pressure 1: 138/80 Code: 8480-6 BMI: 40.3 Code: 83318-2 Heart Rate 1: 84 bpm Height: 5'7" SpO2: 95% Weight: 257 lbs 08/28/2015 Blood Pressure 1: 122/72 Code: 8480-6 BMI: 39.6 Code: 82865-8 Heart Rate 1: 75 bpm Height: 5'7" SpO2: 96% Weight: 253 lbs 07/09/2015 Blood Pressure 1: 140/78 Code: 8480-6 Blood Pressure 1: 135/78 Code: 8480-6 BMI: 39.5 Code: 96940-5 Heart Rate 1: 62 bpm Height: 5'7" SpO2: 95% Weight: 252 lbs 03/06/2015 Blood Pressure 1: 142/88 Code: 8480-6 BMI: 39.3 Code: 10150-3 Heart Rate 1: 65 bpm Height: 5'7" [...] rs ago 10/25/2018 None Location in the [facility] area 10/25/2018 None Quality burning 10/25/2018 [...] Encounters Encounter Performer Loca tion Codes Date ([id number]) 33950 EST. P ATIENT, LEVEL III Diagnosis: Pain in right knee[ICD10: M25.561] Diagnosis: Localized edema[ICD10: R60.0] [facility] CPT- 4: 67673 03/09/2019 ([id number]) 42347 EST. P ATIENT, LEVEL III Diagnosis: Urinary tract infection, site not specified[ICD10: N39.0] Diagnosis: Localized edema[ICD10: R60.0] [facility] CPT- 4: 83620 02/23/2019 [id number]) 44289 EST. P ATIENT, LEVEL III Diagnosis: Localized edema[ICD10: R60.0] Diagnosis: Lumbago with sciatica, right side[ICD10: M54.41] [facility] CPT-4: 91331 02/14/2019 35031 EST. PATIENT, LEVEL IV Diagnosis: Lumbago with sciatica, right side[ICD10: M54.41] Diagnosis: Dysuria[ICD10: R30.0] Diagnosis: Paroxysmal atrial fibrillation[ICD10: I48.0] [facility] CPT-4: 80118 01/31/2019 ([id number]) 47395 EST. P ATIENT, LEVEL IV Diagnosis: Essential (primary) hypertension[ICD10: I10] Diagnosis: Chronic atrial fibrillation[ICD10: I48.2] Diagnosis: Localized edema[ICD10: R60.0] Diagnosis: Dysuria[ICD10: R30.0] Diagnosis: Low back pain[ICD10: M54.5] Diagnosis: Vitamin D deficiency, unspecified[ICD10: E55.9] Alis Spring MD, [facility] CPT-4: 43858 01/12/2019 ([id number]) 66861 EST. P ATIENT, LEVEL IV Diagnosis: Localized edema[ICD10: R60.0] Diagnosis: Dysuria[ICD10: R30.0] Diagnosis: Cellulitis of abdominal wall[ICD10: L03.311] Alis Spring MD, [facility] CPT-4: 85523 12/06/2018 ([id number]) 11546 EST. P ATIENT, LEVEL III Diagnosis: Dysuria[ICD10: R30.0] Diagnosis: Essential (primary) hypertension[ICD10: I10] Diagnosis: Major depressive disorder, recurrent, moderate[ICD10: F33.1] Alis Spring MD, [facility] CPT-4: 73057 11/15/2018 ([id number]) 81575 EST. P ATIENT, LEVEL IV Diagnosis: Eructation[ICD10: R14.2] Diagnosis: Nausea[ICD10: R11.0] Diagnosis: Chest pain, unspecified[ICD10: R07.9] Diagnosis: Diarrhea, unspecified[ICD10: R19.7] Alis Spring MD, [facility] CPT-4: 07162 10/25/2018 ([id number]) 07257 EST. P ATIENT, LEVEL IV Diagnosis: Essential (primary) hypertension[ICD10: I10] Diagnosis: Low back pain[ICD10: M54.5] Diagnosis: Major depressive disorder, recurrent, moderate[ICD10: F33.1] Alis Spring MD, [facility] CPT-4: 95059 10/13/2018 ([id number]) 36225 EST. P ATIENT, LEVEL IV Diagnosis: Essential (primary) hypertension[ICD10: I10] Diagnosis: Dysuria[ICD10: R30.0] Diagnosis: Low back pain[ICD10: M54.5] Alis Spring MD, [facility] CPT- 4: 07404 09/15/2018 ([id number]) 31165 EST. P ATIENT, LEVEL III Diagnosis: Essential (primary) hypertension[ICD10: I10] Diagnosis: Low back pain[ICD10: M54.5] Alis Spring MD, [facility] CPT- 4: 01105 08/15/2018 ([id number]) 24224 EST. P ATIENT, LEVEL III Diagnosis: Essential (primary) hypertension[ICD10: I10] Diagnosis: Cough[ICD10: R05] Diagnosis: Low back pain[ICD10: M54.5] Alis Spring MD, [facility] CPT- 4: 36936 08/01/2018 ([id number]) 79090 EST. P ATIENT, LEVEL IV Diagnosis: Encounter for immunization[ICD10: Z23] Diagnosis: Essential (primary) hypertension[ICD10: I10] Diagnosis: Chronic atrial fibrillation[ICD10: I48.2] Diagnosis: Major depressive disorder, recurrent, mild[ICD10: F33.0] [facility]lett [facility] CPT-4: 17807 04/20/2018 ([id number]) 80888 EST. P ATIENT, LEVEL IV Diagnosis: Essential (primary) hypertension[ICD10: I10] Diagnosis: Obstructive sleep apnea (adult) (pediatric)[ICD10: G47.33] Diagnosis: Chronic atrial fibrillation[ICD10: I48.2] [facility] CPT-4: 51055 12/16/2017 ([id number]) 12741 EST. P ATIENT, LEVEL IV Diagnosis: Essential (primary) hypertension[ICD10: I10] Diagnosis: Chronic atrial fibrillation[ICD10: I48.2] [facility] CPT-4: 52991 08/23/2017 ([id number]) 31281 EST. P ATIENT, LEVEL IV Diagnosis: Paroxysmal atrial fibrillation[ICD10: I48.0] Diagnosis: Essential (primary) hypertension[ICD10: I10] [facility] CPT-4: 39688 02/02/2017 91229 EST. PATIENT, LEVEL III Diagnosis: Acute laryngopharyngitis[ICD10: J06.0] Diagnosis: Cough[ICD10: R05] Diagnosis: Pleurodynia[ICD10: R07.81] Diagnosis: Other dorsalgia[ICD10: M54.89] Kassandra Spring MD, [facility] CPT-4: 75079 11/26/2016 ([id number]) 84235 EST. P ATIENT, LEVEL IV Diagnosis: Essential (primary) hypertension[ICD10: I10] Diagnosis: Pain in left knee[ICD10: M25.562] Diagnosis: Low back pain[ICD10: M54.5] Diagnosis: Major depressive disorder, recurrent, moderate[ICD10: F33.1] Scarlett Spring MD, [facility] CPT-4: 72533 10/07/2016 ([id number]) 30465 EST. P ATIENT, LEVEL IV Diagnosis: Essential (primary) hypertension[ICD10: I10] Diagnosis: Rash and other nonspecific skin eruption[ICD10: R21] Diagnosis: Major depressive disorder, recurrent, mild[ICD10: F33.0] [facility] CPT-4: 63038 09/16/2016 88630 EST. PATIENT, LEVEL IV Diagnosis: Pain in left lower leg[ICD10: M79.662] Diagnosis: Pain in left knee[ICD10: M25.562] Kassandra Spring MD, [facility] CPT-4: 77928 09/07/2016 ([id number]) 24282 EST. P ATIENT, LEVEL IV Diagnosis: Encounter for immunization[ICD10: Z23] Diagnosis: Essential (primary) hypertension[ICD10: I10] Diagnosis: Mixed hyperlipidemia[ICD10: E78.2] Scarlett Spring MD, [facility] CPT- 4: 07695 04/08/2016 ([id number]) 21769 EST. P ATIENT, LEVEL III Diagnosis: Essential (primary) hypertension[ICD10: I10] Diagnosis: Shortness of breath[ICD10: R06.02] Scarlett Spring MD, [facility] CPT- 4: 74912 03/05/2016 ([id number]) 36229 EST. P ATIENT, LEVEL III Diagnosis: Chronic obstructive pulmonary disease, unspecified[ICD10: J44.9] Scarlett Spring MD, [facility] CPT-4: 27981 12/04/2015 ([id number]) 49881 EST. P ATIENT, LEVEL IV Diagnosis: Essential (primary) hypertension[ICD10: I10] Diagnosis: Allergic rhinitis due to pollen[ICD10: J30.1] Scarlett Spring MD, [facility] CPT-4: 51073 11/18/2015 ([id number]) 41139 EST. P ATIENT, LEVEL IV Diagnosis: Localized edema[ICD10: R60.0] Diagnosis: Dysuria[ICD10: R30.0] Diagnosis: Essential (primary) hypertension[ICD10: I10] Diagnosis: Nausea[ICD10: R11.0] Alis Spring MD, [facility] CPT-4: 69307 09/30/2015 ([id number]) 07324 EST. P ATIENT, LEVEL II Diagnosis: Methicillin susceptible Staphylococcus aureus infection as the cause of diseases classified elsewhere[ICD10: B95.61] Diagnosis: Methicillin susceptible Staphylococcus aureus infection, unspecified site[ICD10: A49.01] Alis Spring MD, [facility] CPT-4: 16694 09/09/2015 ([id number]) 51275 EST. P ATIENT, LEVEL III Diagnosis: Dermatophytosis, unspecified[ICD10: B35.9] Diagnosis: Rash and other nonspecific skin eruption[ICD10: R21] Scarlett Spring MD, [facility] CPT-4: 46609 08/28/2015 ([id number]) 53128 EST. P ATIENT, LEVEL IV Diagnosis: Essential (primary) hypertension[ICD10: I10] Diagnosis: Gastro-esophageal reflux disease without esophagitis[ICD10: K21.9] Diagnosis: Other dorsalgia[ICD10: M54.89] Scarlett Spring MD, [facility] CPT-4: 95663 07/09/2015 ([id number]) OFFICE VISI T, [facility] - LEVEL 4 Diagnosis: ESSENTIAL HYPERTENSION[ICD9: 401.9] Diagnosis: Osteoporosis[ICD9: 733.00] Diagnosis: Back pain[ICD9: 724.5] Diagnosis: Insomnia[ICD9: 780.52] Diagnosis: ESOPHAGEAL REFLUX[ICD9: 530.81] [facility] CPT-4: 85093 03/06/2015 Plan of Care Planned Activity Notes C odes Status Date Visit Plan: Right knee pain -xray k nee -tylenol as needed Edema-not well controlled-check labs increase lasix -compression wrap bilateral lower legs with lyle wraps -schedule appt with Dr Tinoco -follow up in the office in 10 days 03/09/2019 Appointment: Alis Muhammad WPtel: [address] [place], [place] [phone] (30 min) Complex 03/09/2019 Patient Education: Patient [...] peripheral edema. 02/23/2019 Appointment: Alis Muhammad WPtel: [address] [place], [place] [phone] (30 min) Complex 02/23/2019 Patient Education: Patient [...] current dose 02/14/2019 Appointment: Alis Muhammad WPtel: [address] [place], [place] [phone] (15 min) Moderate 02/14/2019 Patient Education: Patient [...] becoming uncontrolled. 01/31/2019 Appointment: Alis Muhammad WPtel: [address] [place] [address] (30 min) Complex 01/31/2019 Patient Education: Patient Medication Summary Completed 01/31/2019 Care Plan: Urine Culture Pending 01/31/2019 Care Plan: Referral Order SNOMED-CT : [id number] Pending 01/31/2019 Visit Plan: Hypertension - well [...] labs today 01/12/2019 Appointment: Alis Muhammad WPtel: [address] [place], [place] [phone] [place] [address] (30 min) Complex 01/12/2019 Patient Education: Patient Medication Summary Completed 01/12/2019 Patient Education: Back Pain Completed 01/12/2019 Appointment: Alis Muhammad WPtel: [address] [place], [place] [phone] [place] [address] (30 min) Complex 12/13/2018 Visit Plan: Edema [...] warmth, discharge. 12/06/2018 Appointment: Alis Muhammad WPtel: [facility] [address] (30 min) Complex 12/06/2018 Patient Education: [...] as indicated 11/15/2018 Appointment: Alis Muhammad WPtel: [address] [place] [address] (15 min) Moderate 11/15/2018 Patient Education: Patient [...] in ER 10/25/2018 Appointment: Alis Muhammad WPtel: [facility] [place] [phone] (15 min) Moderate 10/25/2018 Patient Education: Patient [...] current treatment 10/13/2018 Appointment: Alis Muhammad WPtel: [phone] [phone] (15 min) Moderate 10/13/2018 Patient Education: Patient [...] Dysuria-check Ua 09/15/2018 Appointment: [phone] (30 min) Complex 09/15/2018 Patient Education: Patient [...] if symptoms do not improve 08/15/2018 Appointment: Alsi Muhammad WPtel: [phone] (30 min) Complex 08/15/2018 Patient Education: Patient Medication Summary Completed 08/15/2018 Patient Education: Back Pain Completed 08/15/2018 Visit Plan: HTN-lyle induced cough-s top lisinopril -start losartan -monitor blood pressure and follow up in 2 weeks Low back pain-xray lumbar spine and refer for PT 08/01/2018 Appointment: Alis Muhammad WPtel: [phone] (15 min) Moderate 08/01/2018 Patient Education: Patient Medication Summary Completed 08/01/2018 Patient Education: Back Pain Completed 08/01/2018 Care Plan: X-RAY EXAM L-S SPINE 2/ [facility] LOINC : 39134-7 Pending 08/01/2018 Visit Plan: Hypertension - well [...] shot today. 04/20/2018 Appointment: Scarlett Spring WPtel: [facility] [place] [address] [place] (15 min) Moderate 04/20/2018 Patient Education: [...] surrogate. 02/09/2018 Appointment: [facility] Argueta [phone] [facility] - Annual Wellness Visit 02/09/2018 Patient [...] every night. 12/16/2017 Appointment: Scarlett Spring WPtel: [facility]66[facility] (15 min) Moderate 12/16/2017 Patient Education: [...] becoming uncontrolled. 08/23/2017 Appointment: Scarlett Spring WPtel: [facility] [address] (15 min) Moderate 08/23/2017 Patient Education: [...] cardiology 02/03/2017 Appointment: Kassandra Argueta WPtel: [phone] - Annual Wellness Visit 02/03/2017 Patient [...] home. 02/02/2017 Appointment: Scarlett Spring WPtel: [phone] [facility] (15 min) Moderate 02/02/2017 Patient Education: [...] improve. 11/26/2016 Appointment: Kassandra Argueta WPtel: [phone] [facility] (30 min) Complex 11/26/2016 Patient Education: [...] symptoms. 10/07/2016 Appointment: [phone] [place] (15 min) Moderate 10/07/2016 Patient Education: Patient Medication Summary Completed 10/07/2016 Patient Education: Obesity Completed 10/07/2016 Patient Education: Hypertension Completed 10/07/2016 Care Plan: VASCULAR STUDY Pending 10/04/2016 Care Plan: X-RAY EXAM OF KNEE 3 [facility] : 62177-4 Pending 10/04/2016 Visit Plan: Hypertension - well [...] paroxetine 09/16/2016 Appointment: [phone] [place] (15 min) Moderate 09/16/2016 Patient [...] not improve. 09/07/2016 Appointment: [facility] Argueta [facility]Ptel[phone] [place] (10 min) Simple 09/07/2016 Patient Education: [...] mammogram order 04/08/2016 Appointment: [facility] Spring [phone] [place] (15 min) Moderate 04/08/2016 Patient [...] 10 days. 03/05/2016 Appointment: [phone] [place] (15 min) Moderate 03/05/2016 Patient Education: Patient Medication Summary Completed 03/05/2016 Visit Plan: COPD - chronic problem for this patient. We have reviewed chronic treatment strategy, symptom control, and plans for acute exacerbations. No changes today to the current treatment plan as the patient is stable, monitor for acute changes. anoro samples given to the patient 12/04/2015 Appointment: [phone] [facility] [place] (15 min) Moderate 12/04/2015 Patient Education: [...] spray. 11/18/2015 Appointment: Scarlett Spring WPtel: [phone] [facility] (15 min) Moderate 11/18/2015 Patient Education: Patient Medication Summary Completed 11/18/2015 Patient Education: Obesity Completed 11/18/2015 Patient Education: Hypertension Completed 11/18/2015 Appointment: Scarlett Spring WPtel: [facility] (15 min) Moderate 11/07/2015 Visit Plan: [...] Visit Plan: MSSA of groin and under [id number] bactrim and call if rash does not [...] report. 08/28/2015 Appointment: Scarlett Spring [facility]Ptel[phone] [facility] (15 min) Moderate 08/28/2015 Patient Education: [...] improving. 07/09/2015 Appointment: Scarlett Spring [facility]Ptel[phone] [facility] (15 min) Moderate 07/09/2015 Patient Education: [...] not improving. 03/06/2015 Appointment: Scarlett Spring [facility]Ptel[phone] [facility] [place] ([place] New Patient 03/06/2015 Patient Education: Patient Medication Summary Completed 03/06/2015 Patient Education: Hypertension Completed 03/06/2015 Referral: Dr Ewing Referral Appointment Requested Instructions Comment . Hypertension - wel l controlled - [...] her DOPA paperwork for health care surrogate. COMPRESSION STOCKING S . Edema - pt [...] will find out if anyone comes to [place] check UA start probiotic daily . Hypertension [...] daily x 10 days. . Hypertension - wel l controlled - [...] with current management - cpap every night. check labs including cardiac enzymes and EKG [...] weeks ago and was evaluated in ER . Hypertension - wel l controlled - [...] changes. anoro samples given to the patient CHECK LABS today INCREASE LASIX TO 2 [...] in the office in 10 days . Left knee pain, le ft calf pain - Will order x-ray, US - The pt is to use prn antiinflammatories to manage acute pain. The patient is to call the office if the pain is worsening or does not improve. MONITOR BLOOD PRESSU RE AND PULSE CONTINUE [...] symptoms do not improve . Hypertension - wel l controlled - [...]
--- OUTSIDE RECORDS SUMMARY | 2020-01-23 13:56 | XMS REPORT | CCD ---
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 Name Role Phone PP Unavailable CCM Unavailable Summary Purpose Interface Exchange Insurance Providers Payer name Policy type / Coverage type Covered republican ID Effective Begin Date Effective End Date WPS Medicare Part B Medicare Part B [id number] Unknown [employer] Medicare Part B [id number] Unkn own Family history Mother Diagnosis Age At Onset Hypertension Unknown Heart Attack Unknown Brother Diagnosis Age At Onset Heart disease Unknown Runs in the family Diagnosis Age At Onset Heart disease Unknown Daughter Diagnosis Age At Onset Heart Attack Unknown Hyperlipidemia Unknown Hypertension Unknown Social History Social History Element Codes Description Effective Dates Number of children Unknown 2 daughter lives in [place], son - does not have contact 09/16/[address]: 8177327 Quit over 10 years ago 1990 - previously smoked 2ppd x 25 years. 11/18/2015 Marital status Unknown W idowed in 201003/06/2015 Employment Unknown Retir ed was a [employer] 03/06/2015 Allergies, Adverse Reactions, Alerts Substance [...] Date Stop Date Sta tus Fill Instructions Lasix 20 mg tablet RxNorm: 999894 2 Tablet(s) PO BID 03/09/2019 07/06/2019 Active 2 q am and 2 q noon terazosin 5 mg capsule RxNorm: 201117 TAKE ONE CAPSULE BY MOUTH DAILY 02/27/2019 06/26/2019 Ac tive potassium chloride E R 10 mEq tablet,extended release RxNorm: 453699 2 Tablet(s) PO daily 02/23/2019 06/22/2019 Active 3 daily x 5 days then 2 jignesh y thereafter Lasix 20 mg tablet RxNorm: 872983 2 Tablet(s) PO daily 02/23/2019 03/08/2019 Inactive take 3 daily x 5 days then 2 tab daily t herafter Cipro 500 mg tablet RxNorm: 034176 1 Tablet(s) PO BID 02/23/2019 03/01/2019 Inactive doxycycline hyclate 100 mg tablet,delayed release RxNorm: 527490 1 Tablet(s) PO BID 02/03/2019 02/02/2019 In active doxycycline hyclate 100 mg tablet,delayed release RxNorm: 373603 1 Tablet(s) PO BID an d probiotic bid 02/03/2019 02/09/2019 Inactive may use capsule if cheaper gabapentin 100 mg ca psule RxNorm: 999392 1 Capsule(s) PO TID 01/31/2019 04/30/2019 Active Ambien 10 mg tablet RxNorm: 490524 Tablet(s) TAKE ONE TABLET BY MOUTH AT BE DTIME NEEDED 01/20/2019 05/19/2019 Active Vitamin D2 50,000 un it capsule RxNorm: 9516048 1 Capsule(s) PO QW 01/18/2019 03/18/2019 Active Ambien 10 mg tablet RxNorm: 639883 Tablet(s) TAKE ONE TABLET BY MOUTH AT BE DTIME NEEDED 12/21/2018 04/18/2019 Active mupirocin 2 % topica l ointment RxNorm: 073485 1 Application TOP BID 12/06/2018 12/19/2018 Inactive doxycycline hyclate 100 mg tablet RxNorm: 1783617 1 Tablet(s) PO BID 11/21/2018 11/27/2018 Inactive can exchange for capsule if cheaper doxycycline hyclate 100 mg tablet RxNorm: 7209125 1 Tablet(s) PO BID 11/21/2018 11/20/2018 Inactive simethicone 125 mg c hewable tablet RxNorm: 955082 1 Tablet(s) PO qid pr n 10/25/2018 No Stop Date Active promethazine 25 mg t ablet RxNorm: 736292 1 Tablet(s) PO Q6 PRN 10/25/2018 No Stop Date Active paroxetine 40 mg tablet RxNorm: 2656365 1 Tablet(s) PO daily 10/13/2018 04/10/2019 Active valsartan 160 mg tablet RxNorm: 170801 1 Tablet(s) PO daily 10/13/2018 04/10/2019 Active trazodone 50 mg tablet RxNorm: 209810 TAKE ONE TABLET BY MOUTH DAILY 09/23/2018 03/21/2019 Ac tive Ambien 10 mg tablet RxNorm: 021730 TAKE ONE TABLET BY MOUTH AT BEDTIME N EEDED 09/23/2018 11/20/2018 Inactive terazosin 5 mg capsule RxNorm: 128945 TAKE ONE CAPSULE BY MOUTH DAILY 09/23/2018 02/19/2019 In active losartan 50 mg tablet RxNorm: 474318 1 Tablet(s) PO daily 09/15/2018 10/12/2018 Inactive omeprazole 20 mg cap marina,delayed release RxNorm: 102250 TAKE ONE CAPSULE BY M OUTH EVERY NIGHT AT BEDTIME 09/12/2018 03/10/2019 Inactive Keflex 500 mg capsule RxNorm: 479645 1 Capsule(s) PO TID 08/18/2018 08/17/2018 Inactive Keflex 500 mg capsule RxNorm: 123102 1 Capsule(s) PO TID 08/18/2018 08/24/2018 Inactive take probiotic while on abx paroxetine 20 mg tablet RxNorm: 3917713 TAKE ONE TABLET BY MOUTH DAILY 08/12/2018 10/12/2018 In active losartan 25 mg tablet RxNorm: 022911 1 Tablet(s) PO daily 08/01/2018 09/14/2018 Inactive losartan 25 mg tablet RxNorm: 405827 1 Tablet(s) PO daily 08/01/2018 10/12/2018 Inactive trazodone 50 mg tablet RxNorm: 286196 TAKE ONE TABLET BY MOUTH DAILY 07/25/2018 09/22/2018 In active Ambien 10 mg tablet RxNorm: 938255 Tablet(s) TAKE ONE TABLET BY MOUTH AT BE DTIME 06/24/2018 09/23/2018 Inactive trazodone 50 mg tablet RxNorm: 586846 TAKE ONE TABLET BY MOUTH DAILY 04/25/2018 07/23/2018 In active Ambien 10 mg tablet RxNorm: 743991 Tablet(s) TAKE ONE TABLET BY MOUTH AT BE DTIME 03/23/2018 06/19/2018 Inactive terazosin 5 mg capsule RxNorm: 645953 TAKE ONE CAPSULE BY MOUTH DAILY 03/14/2018 09/09/2018 In active Ambien 10 mg tablet RxNorm: 425713 Tablet(s) TAKE ONE TABLET BY MOUTH AT BE DTIME 01/18/2018 09/14/2018 Inactive trazodone 50 mg tablet RxNorm: 246623 TAKE ONE TABLET BY MOUTH ONCE DAILY 01/10/2018 03/22/2018 In active trazodone 50 mg tablet RxNorm: 330544 Tablet(s) TAKE ONE TABLET BY MOUTH ONCE DAILY 01/10/2018 04/24/2018 Inactive Ambien 10 mg tablet RxNorm: 935694 Tablet(s) TAKE ONE TABLET BY MOUTH AT BE DTIME 10/22/2017 01/17/2018 Inactive trazodone 50 mg tablet RxNorm: 012796 TAKE ONE TABLET BY MOUTH ONCE DAILY 10/18/2017 01/09/2018 In active omeprazole 20 mg cap marina,delayed release RxNorm: 173384 TAKE ONE CAPSULE BY M OUTH ONCE DAILY AT BEDTIME 08/27/2017 09/11/2018 Inactive trazodone 50 mg tablet RxNorm: 215893 TAKE ONE TABLET BY MOUTH ONCE DAILY 08/18/2017 10/17/2017 In active Ambien 10 mg tablet RxNorm: 021232 Tablet(s) TAKE ONE TABLET BY MOUTH AT BE DTIMD 08/18/2017 03/22/2018 Inactive paroxetine 20 mg tablet RxNorm: 4194499 TAKE ONE TABLET BY MOUTH ONCE DAILY 07/27/2017 08/11/2018 In active Ambien 10 mg tablet RxNorm: 568684 Tablet(s) TAKE ONE TABLET BY MOUTH AT BE DTIMD 06/23/2017 03/22/2018 Inactive omeprazole 20 mg cap marina,delayed release RxNorm: 156972 TAKE ONE CAPSULE BY M OUTH ONCE DAILY AT BEDTIME 04/23/2017 08/20/2017 Inactive trazodone 50 mg tablet RxNorm: 862438 TAKE ONE TABLET BY MOUTH ONCE DAILY 04/13/2017 08/10/2017 In active terazosin 5 mg capsule RxNorm: 189433 Capsule(s) TAKE ONE CAPSULE BY MOUTH [facility] 04/08/2017 03/03/2018 In active Ambien 10 mg tablet RxNorm: 856013 Tablet(s) TAKE ONE TABLET BY MOUTH AT BE [facility] 02/17/2017 03/22/2018 Inactive Tylenol-Codeine #3 3 00 mg-30 mg tablet RxNorm: 477956 1 Tablet(s) PO QID as needed 02/02/2017 11/14/2018 In active metoprolol succinate ER 50 mg tablet,extended release 24 hr RxNorm: 709114 TAKE ONE TABLET BY MOUTH ONCE DAILY 12/23/2016 02/02/2017 Inactive Zithromax Z-Ted 250 mg tablet RxNorm: 620060 1 Tablet(s) PO UD 11/26/2016 02/16/2017 Inactive trazodone 50 mg tablet RxNorm: 139858 TAKE ONE TABLET BY MOUTH ONCE DAILY 11/12/2016 03/11/2017 In active Ambien 10 mg tablet RxNorm: 787127 Tablet(s) TAKE ONE TABLET BY MOUTH AT BE DTIMD 10/22/2016 02/15/2017 Inactive paroxetine 20 mg tablet RxNorm: 1120534 1 Tablet(s) PO daily TAKE ONE TABLET BY MOUTH DAILY 09/16/2016 06/12/2017 Inactive meloxicam 7.5 mg tablet RxNorm: 349731 1 Tablet(s) PO daily 09/16/2016 11/14/2016 Inactive Protonix 40 mg table t,delayed release RxNorm: 620068 1 Tablet(s) PO daily 09/16/2016 08/22/2017 In active sucralfate 1 gram ta blet RxNorm: 429704 1 Tablet(s) PO TID 09/16/2016 08/22/2017 Inactive Ambien 10 mg tablet RxNorm: 863136 Tablet(s) TAKE ONE TABLET BY MOUTH AT BE DTIME 08/24/2016 03/22/2018 Inactive trazodone 50 mg tablet RxNorm: 845608 Tablet(s) TAKE ONE TABLET BY MOUTH DAILY 07/29/2016 11/11/2016 In active Ambien 10 mg tablet RxNorm: 876635 TAKE ONE TABLET BY MOUTH AT BEDTIME 06/23/2016 03/22/2018 In active Ambien 10 mg tablet RxNorm: 853476 Tablet(s) TAKE ONE TABLET BY MOUTH EVERY NIGHT AT BEDTIME 06/22/2016 06/23/2016 Inactive Lasix 40 mg tablet RxNorm: 900777 1 Tablet(s) PO daily as needed for swell ing 04/03/2016 09/15/2016 In active potassium chloride E R 20 mEq tablet,extended release RxNorm: 091790 1 Tablet(s) PO daily for swelling take with lasix as needed 04/03/2016 09/15/2016 Inactive Ambien 10 mg tablet RxNorm: 070644 Tablet(s) TAKE ONE TABLET BY MOUTH EVERY NIGHT AT BEDTIME 04/03/2016 03/22/2018 Inactive omeprazole 20 mg cap marina,delayed release RxNorm: 265713 TAKE ONE CAPSULE BY M OUTH EVERY NIGHT AT BEDTIME 03/31/2016 09/15/2016 Inactive paroxetine 20 mg tablet RxNorm: 6296158 TAKE ONE TABLET BY MOUTH DAILY 03/31/2016 09/15/2016 In active trazodone 50 mg tablet RxNorm: 512067 TAKE ONE TABLET BY MOUTH DAILY 03/20/2016 07/28/2016 In active terazosin 5 mg capsule RxNorm: 347070 TAKE ONE CAPSULE BY MOUTH DAILY 03/06/2016 10/06/2016 In active Ambien 10 mg tablet RxNorm: 748550 Tablet(s) TAKE ONE TABLET BY MOUTH EVERY NIGHT AT BEDTIME 01/17/2016 04/02/2016 Inactive loratadine 10 mg tablet RxNorm: 969615 1 Tablet(s) PO daily 01/15/2016 09/15/2016 Inactive mupirocin 2 % topica l ointment RxNorm: 363615 1 Application TOP TID 11/18/2015 12/01/2015 Inactive metoprolol succinate ER 50 mg tablet,extended release 24 hr RxNorm: 195707 1 Tablet(s) PO daily 11/18/2015 11/11/2016 Inactive loratadine 10 mg tablet RxNorm: 042507 1 Tablet(s) PO daily 11/18/2015 01/14/2016 Inactive Lasix 40 mg tablet RxNorm: 648907 1 Tablet(s) PO daily as needed for swell ing 10/30/2015 11/28/2015 In active potassium chloride E R 20 mEq tablet,extended release RxNorm: 893298 1 Tablet(s) PO daily for swelling take with lasix as needed 10/30/2015 11/28/2015 Inactive Tylenol-Codeine #3 3 00 mg-30 mg tablet RxNorm: 321700 1 Tablet(s) PO QID as needed 10/25/2015 02/01/2017 In active Ambien 10 mg tablet RxNorm: 216598 Tablet(s) TAKE ONE TABLET BY MOUTH EVERY NIGHT AT BEDTIME 10/18/2015 03/22/2018 Inactive Diflucan 150 mg tablet RxNorm: 316741 1 Tablet(s) PO daily 10/01/2015 12/03/2015 Inactive Lasix 20 mg tablet RxNorm: 364310 1 Tablet(s) PO PRN fror swelling 09/27/2015 10/29/2015 In active potassium chloride E R 10 mEq capsule,extended release RxNorm: 681540 1 Capsule(s) PO PRN for swelling take with lasix 09/27/2015 10/29/2015 Inactive Bactrim DS 800 mg-16 0 mg tablet RxNorm: 845763 1 Tablet(s) PO BID 09/02/2015 09/11/2015 Inactive Bactrim DS 800 mg-16 0 mg tablet RxNorm: 670823 1 Tablet(s) PO BID 09/02/2015 09/01/2015 Inactive nystatin 100,000 uni t/gram topical cream RxNorm: 582752 1 Gram(s) TOP TID 08/28/2015 09/26/2015 In active Diflucan 150 mg tablet RxNorm: 366821 1 Tablet(s) PO daily 08/28/2015 09/06/2015 Inactive betamethasone diprop ionate 0.05 % topical ointment RxNorm: 365574 1 Application TOP TID to affected area 08/02/2015 02/01/2017 Inactive nystatin 100,000 uni t/gram topical powder RxNorm: 578192 1 Gram(s) TOP QID 07/09/2015 08/01/2015 In active Ambien 10 mg tablet RxNorm: 837892 1 Tablet(s) PO QHS 06/19/2015 06/18/2015 Inactive Ambien 10 mg tablet RxNorm: 098472 TAKE ONE TABLET BY MOUTH EVERY NIGHT AT BEDTIME 06/19/2015 09/16/2015 Inactive Vitamin D2 50,000 un it capsule RxNorm: 965139 1 Capsule(s) PO QW 03/07/2015 03/06/2015 Inactive Vitamin D2 50,000 un it capsule RxNorm: 6571656 1 Capsule(s) PO QW 03/07/2015 05/05/2015 Inactive terazosin 5 mg capsule RxNorm: 631070 1 Capsule(s) PO daily 03/06/2015 02/28/2016 Inactive [SAVINGS FOR NON-COVERED DRUGS -- BIN:00 3585, PCN: [id number], Group: XXXXX, ID# [id number], Questions: . THIS IS NOT INSURANCE.] trazodone 50 mg tablet RxNorm: 408338 1 Tablet(s) PO daily 03/06/2015 02/28/2016 Inactive paroxetine 20 mg tablet RxNorm: 7377807 1 Tablet(s) PO daily 03/06/2015 02/28/2016 Inactive Tylenol-Codeine #3 3 00 mg-30 mg tablet RxNorm: 897660 1 Tablet(s) PO QID as needed 03/06/2015 07/02/2015 In active amlodipine 10 mg tablet RxNorm: 239557 1 Tablet(s) PO daily 03/06/2015 11/17/2015 Inactive metoprolol succinate ER 25 mg tablet,extended release 24 hr RxNorm: 827697 1 Tablet(s) PO daily 03/06/2015 11/17/2015 Inactive omeprazole 20 mg cap marina,delayed release RxNorm: 418142 1 Capsule(s) PO QHS 03/06/2015 02/28/2016 In active omeprazole 20 mg cap marina,delayed release RxNorm: 995149 1 Capsule(s) PO QHS 01/31/2015 01/30/2015 In active omeprazole 20 mg cap marina,delayed release RxNorm: 954338 1 Capsule(s) PO QHS 01/31/2015 01/30/2015 In active omeprazole 20 mg cap marina,delayed release RxNorm: 692376 1 Capsule(s) PO QHS 01/31/2015 03/05/2015 In active Ambien 10 mg tablet RxNorm: 690682 1 Tablet(s) PO QHS 12/25/2014 04/21/2015 Inactive paroxetine 20 mg tablet RxNorm: 316592 1 Tablet(s) PO daily 12/25/2014 12/24/2014 Inactive Ambien 10 mg tablet RxNorm: 757325 1 Tablet(s) PO QHS 12/25/2014 12/24/2014 Inactive paroxetine 20 mg tablet RxNorm: 492297 1 Tablet(s) PO daily 12/25/2014 03/05/2015 Inactive terazosin 5 mg capsule RxNorm: 039349 1 Capsule(s) PO daily 11/23/2014 03/05/2015 Inactive [SAVINGS FOR NON-COVERED DRUGS -- BIN:00 3575, PCN: ASPROD1, Group: XXXXX, ID# [id number], Questions: . THIS IS NOT INSURANCE.] terazosin 5 mg capsule RxNorm: 066354 1 Capsule(s) PO daily 11/23/2014 11/22/2014 Inactive Multaq 400 mg tablet RxNorm: 547148 oral No Start Date Active hydrochlorothiazide 25 mg tablet RxNorm: 878723 1 Tablet(s) PO daily No Start Date Active Vitamin D3 2,000 uni t tablet RxNorm: 074093 1 Tablet(s) PO daily No Start Date Active Zetia 10 mg tablet RxNorm: 316804 1 Tablet(s) PO daily No Start Date Active Lipitor 80 mg tablet RxNorm: 570766 1/2 Tablet(s) PO daily No Start Date Active Coumadin 4 mg tablet RxNorm: 905995 1 Tablet(s) PO daily No Start Date Active Lasix 20 mg tablet RxNorm: 742401 1 Tablet(s) PO daily No Start Date 02/22/2019 Inactive metoprolol succinate ER 25 mg tablet,extended release 24 hr RxNorm: 254618 1 Tablet(s) PO daily No Start Date 03/05/2015 Inactive Entresto 49 mg-51 mg tablet RxNorm: 8228473 1 Tablet(s) PO BID No Start Date 04/19/2018 Inactive K-Dur 10 mEq tablet, extended release RxNorm: 825376 1 Tablet(s) PO daily No Start Date 02/22/2019 Inactive sotalol 80 mg tablet RxNorm: 0149278 1 Tablet(s) PO BID No Start Date 04/19/2018 Inactive betamethasone diprop ionate 0.05 % topical ointment RxNorm: 515434 1 Application TOP TID to affected area No Start Date 08/01/2015 Inactive trazodone 50 mg tablet RxNorm: 272235 1 Tablet(s) PO daily No Start Date 03/05/2015 Inactive potassium chloride E R 10 mEq capsule,extended release RxNorm: 435513 1 Capsule(s) PO PRN for swelling take with lasix No Start Date 09/26/2015 Inactive Eliquis 5 mg tablet RxNorm: 5202142 1 Tablet(s) PO BID No Start Date 09/14/2018 Inactive amiodarone 200 mg ta blet RxNorm: 904677 1 Tablet(s) PO BID No Start Date 01/30/2019 Inactive amlodipine 10 mg tablet RxNorm: 938983 1 Tablet(s) PO daily No Start Date 03/05/2015 Inactive isosorbide mononitra te ER 30 mg tablet,extended release 24 hr RxNorm: 030256 1 Tablet(s) PO daily No Start Date 08/22/2017 Inactive aspirin 81 mg tablet ,delayed release RxNorm: 782924 1 Tablet(s) PO daily No Start Date 02/02/2017 Inactive Lasix 20 mg tablet RxNorm: 833673 1 Tablet(s) PO PRN fror swelling No Start Date 09/26/2015 Inactive lisinopril 5 mg tablet RxNorm: 343221 1 Tablet(s) PO daily No Start Date 07/31/2018 Inactive Crestor 40 mg tablet RxNorm: 259699 1 Tablet(s) PO daily No Start Date 09/15/2016 Inactive metoprolol succinate ER 100 mg tablet,extended release 24 hr RxNorm: 689760 1 Tablet(s) PO daily No Start Date [...] Code Item Item Code Result Date Pt [id number] PT 23.8 seconds 03/09/2019 Pt Hbu9616 INR 2.2 03/09/2019 Pt Yut8176 Low Intensity - 1.5-2.0 03/09/2019 Pt Pdv6249 Mod intensity - 2.0-3.0 03/09/2019 Pt Bsm1510 Hi intensity - 3.0-4.0 03/09/2019 Comp Metabolic Kuk478 NA 137 mEq/L 03/09/2019 Comp Metabolic Ilb957 K 4.6 mEq/L 03/09/2019 Comp Metabolic Jpe336 CL 101 mEq/L 03/09/2019 Comp Metabolic Frw241 CO2 26.0 mEq/L 03/09/2019 Comp Metabolic Osc557 AN ION GAP 15 03/09/2019 Comp Metabolic Bwp794 GL UCOSE 93 mg/dL 03/09/2019 Comp Metabolic Vya885 Cr eat 1.2 mg/dL 03/09/2019 Comp Metabolic Frg298 eG FR 48 ml/min/1.73m2 03/09 Comp Metabolic Urx263 BUN 14 mg/dL 03/09/2019 Comp Metabolic Fxq516 B/ C Ratio 12.0 Ratio 03/09/2019 Comp Metabolic Nea235 CA LCIUM 9.2 mg/dL 03/09/2019 Comp Metabolic Fba652 AL K PHOS 61 U/L 03/09/2019 Comp Metabolic Ykk176 T(SGOT) 29 U/L 03/09/2019 Comp Metabolic Rwb758 AL T(SGPT) 22 U/L 03/09/2019 Comp Metabolic Rtb245 BI LI T 0.7 mg/dL 03/09/2019 Comp Metabolic Rls383 AL BUMIN 3.9 g/dL 03/09/2019 Comp Metabolic Jvo178 TP RO 6.4 g/dL 03/09/2019 Comp Metabolic Kkj241 GL OB 2.5 g/dL 03/09/2019 Comp Metabolic Rpp133 A/ G Ratio 1.5 Ratio 03/09/2019 Comp Metabolic Puh020 Os mo 274 mOsmo 03/09/2019 CULTURE, URINE M100 URIN E CULTURE See Note 02/03/2019 Pt Fbv8587 PT 24.7 seconds 01/12/2019 Pt Hvt5329 INR 2.3 01/12/2019 Pt Cmv3689 Low Intensity - 1.5-2.0 01/12/2019 Pt Vgk4746 Mod intensity - 2.0-3.0 01/12/2019 Pt Mbd9837 Hi intensity - 3.0-4.0 01/12/2019 Cbc With [...] 27.0 pg 01/12/2019 Cbc With Differential Ord2 Taliaferro% 11.1 % 01/12/2019 Cbc With Differential Ord2 [...] 0.92 K/ul 01/12/2019 Cbc With Differential Ord2 Taliaferro ABS# 0.4 K/ul 01/12/2019 Cbc With Differential Ord2 Eos ABS# 0.1 K/ul 01/12/2019 Cbc With Differential Ord2 Baso ABS# 0.0 K/ul 01/12/2019 Comp Metabolic Ify980 NA 141 mEq/L 01/12/2019 Comp Metabolic Gaz764 K 3.8 mEq/L 01/12/2019 Comp Metabolic Kce017 CL 105 mEq/L 01/12/2019 Comp Metabolic Lym863 CO2 26.0 mEq/L 01/12/2019 Comp Metabolic Tzf842 AN ION GAP 14 01/12/2019 Comp Metabolic Efc702 GL UCOSE 112 mg/dL 01/12/2019 Comp Metabolic Uxg429 Cr eat 1.0 mg/dL 01/12/2019 Comp Metabolic Vov327 eG FR 60 ml/min/1.73m2 01/12 Comp Metabolic Ymr622 BUN 14 mg/dL 01/12/2019 Comp Metabolic Ubg037 B/ C Ratio 14.4 Ratio 01/12/2019 Comp Metabolic Pnl845 CA LCIUM 8.8 mg/dL 01/12/2019 Comp Metabolic Sac379 AL K PHOS 60 U/L 01/12/2019 Comp Metabolic Kyd881 T(SGOT) 22 U/L 01/12/2019 Comp Metabolic Yur254 AL T(SGPT) 22 U/L 01/12/2019 Comp Metabolic Git621 BI LI T 0.5 mg/dL 01/12/2019 Comp Metabolic Bry090 AL BUMIN 3.9 g/dL 01/12/2019 Comp Metabolic Lhg490 TP RO 6.5 g/dL 01/12/2019 Comp Metabolic Vjw537 GL OB 2.6 g/dL 01/12/2019 Comp Metabolic Fvf610 A/ G Ratio 1.5 Ratio 01/12/2019 Comp Metabolic Adp620 Os mo 282 mOsmo 01/12/2019 Vitamin D 25 Oh Iab5246 VITAMIN D, 25 HYDROXY 30.62 ng/mL 01/12/2019 Urine Culture Ucult Comp lete >100,000 col/ml aerobic grow th sent to ref lab 11/16/2018 Culture Urine [id number] URI NE CULTURE SEE NOTES 08/22/2018 Culture Urine [id number] Con tinued Results 08/22/2018 Urine Culture Ucult Comp lete >100,000 col/ml aerobic grow th sent to ref lab 08/19/2018 Comp Metabolic Eau359 NA 140 mEq/L 08/01/2018 Comp Metabolic Cte910 K 4.2 mEq/L 08/01/2018 Comp Metabolic Ssl359 CL 102 mEq/L 08/01/2018 Comp Metabolic Zaa323 CO2 27.0 mEq/L 08/01/2018 Comp Metabolic Kit491 AN ION GAP 15 08/01/2018 Comp Metabolic Ccx595 GL UCOSE 107 mg/dL 08/01/2018 Comp Metabolic Xev129 Cr eat 1.0 mg/dL 08/01/2018 Comp Metabolic Ztn416 eG FR 58 ml/min/1.73m2 08/01 Comp Metabolic Yid688 BUN 10 mg/dL 08/01/2018 Comp Metabolic Iho494 B/ C Ratio 10.0 Ratio 08/01/2018 Comp Metabolic Uex688 CA LCIUM 8.9 mg/dL 08/01/2018 Comp Metabolic Gjs030 AL K PHOS 68 U/L 08/01/2018 Comp Metabolic Ntz320 T(SGOT) 18 U/L 08/01/2018 Comp Metabolic Qgx278 AL T(SGPT) 14 U/L 08/01/2018 Comp Metabolic Okg729 BI LI T 0.5 mg/dL 08/01/2018 Comp Metabolic Nee083 AL BUMIN 4.0 g/dL 08/01/2018 Comp Metabolic Dxp493 TP RO 6.3 g/dL 08/01/2018 Comp Metabolic Ent697 GL OB 2.3 g/dL 08/01/2018 Comp Metabolic Joq543 A/ G Ratio 1.7 Ratio 08/01/2018 Comp Metabolic Sko984 Os mo 279 mOsmo 08/01/2018 Tsh Ord6 [...] 27.3 pg 08/01/2018 Cbc With Differential Ord2 Taliaferro% 9.8 % 08/01/2018 Cbc With Differential Ord2 [...] 0.79 K/ul 08/01/2018 Cbc With Differential Ord2 [place]ferro ABS# 0.4 K/ul 08/01/2018 Cbc With Differential Ord2 Eos ABS# 0.1 K/ul 08/01/2018 Cbc With Differential Ord2 Baso ABS# 0.0 K/ul 08/01/2018 Lipid Ord30 CHOL 234 mg/dL 08/01/2018 Lipid Ord30 HDL 69.0 mg/dl 08/01/2018 Lipid Ord30 TRIG 57 mg/dL 08/01/2018 Lipid Ord30 LDL 154 mg/dL 08/01/2018 Lipid Ord30 C/HDL 3.4 Ratio 08/01/2018 Comp Metabolic Rpn868 NA 137 mEq/L 09/30/2015 Comp Metabolic Ivi660 K 4.5 mEq/L 09/30/2015 Comp Metabolic Kvs273 CL 102 mEq/L 09/30/2015 Comp Metabolic Fbb004 CO2 26.0 mEq/L 09/30/2015 Comp Metabolic Bik007 AN ION GAP 14 09/30/2015 Comp Metabolic Ijr023 GL UCOSE 89 mg/dL 09/30/2015 Comp Metabolic Yqi098 Cr eat 0.8 mg/dL 09/30/2015 Comp Metabolic Vly066 eG FR 79 ml/min/1.73m2 09/29 Comp Metabolic Emi234 BUN 14 mg/dL 09/30/2015 Comp Metabolic Tyv121 B/ C Ratio 18.2 Ratio 09/30/2015 Comp Metabolic Lmq967 CA LCIUM 8.9 mg/dL 09/30/2015 Comp Metabolic Rym702 AL K PHOS 65 U/L 09/30/2015 Comp Metabolic Vtx145 T(SGOT) 26 U/L 09/30/2015 Comp Metabolic Lfz533 AL T(SGPT) 18 U/L 09/30/2015 Comp Metabolic Imn229 BI LI T 0.6 mg/dL 09/30/2015 Comp Metabolic Jrp916 AL BUMIN 3.8 g/dL 09/30/2015 Comp Metabolic Smk603 TP RO 6.6 g/dL 09/30/2015 Comp Metabolic Tub772 GL OB 2.8 g/dL 09/30/2015 Comp Metabolic Srz124 A/ G Ratio 1.4 Ratio 09/30/2015 Comp Metabolic Bds724 Os mo 274 mOsmo 09/30/2015 Cbc With [...] 27.7 pg 09/30/2015 Cbc With Differential Ord2 Taliaferro% 10.7 % 09/30/2015 Cbc With Differential Ord2 [...] 1.10 K/ul 09/30/2015 Cbc With Differential Ord2 [place]ferro ABS# 0.6 K/ul 09/30/2015 Cbc With Differential Ord2 Eos ABS# 0.2 K/ul 09/30/2015 Cbc With Differential Ord2 Baso ABS# 0.0 K/ul 09/30/2015 Cbc With Differential Ord2 New Analyzer Notice Please note new ref ranges s tarting 08-07-2015 due to implemntation of new five part differential hematolgy analyzer. 09/30/2015 Tsh Ord6 hTSH II 1.05 uIU/mL 03/06/2015 Comp Metabolic Xtm525 NA 137 mEq/L 03/06/2015 Comp Metabolic Spx965 K 4.3 mEq/L 03/06/2015 Comp Metabolic Pfp329 CL 104 mEq/L 03/06/2015 Comp Metabolic Roo985 CO2 28.0 mEq/L 03/06/2015 Comp Metabolic Cho961 AN ION GAP 9 03/06/2015 Comp Metabolic Heq545 GL UCOSE 93 mg/dL 03/06/2015 Comp Metabolic Sfx439 Cr eat 0.8 mg/dL 03/06/2015 Comp Metabolic Ytc340 eG FR 81 ml/min/1.73m2 03/06 Comp Metabolic Omw259 BUN 12 mg/dL 03/06/2015 Comp Metabolic Hkj140 B/ C Ratio 16.0 Ratio 03/06/2015 Comp Metabolic Vzi464 CA LCIUM 8.9 mg/dL 03/06/2015 Comp Metabolic Aip704 AL K PHOS 56 U/L 03/06/2015 Comp Metabolic Bfs298 T(SGOT) 22 U/L 03/06/2015 Comp Metabolic Svc485 AL T(SGPT) 15 U/L 03/06/2015 Comp Metabolic Jna593 BI LI T 0.4 mg/dL 03/06/2015 Comp Metabolic Lve726 AL BUMIN 4.0 g/dL 03/06/2015 Comp Metabolic Bgf616 TP RO 6.5 g/dL 03/06/2015 Comp Metabolic Umw985 GL OB 2.5 g/dL 03/06/2015 Comp Metabolic Rfk961 A/ G Ratio 1.6 Ratio 03/06/2015 Comp Metabolic Lbv506 Os mo 273 mOsmo 03/06/2015 Vitamin D 25 Oh Hou5318 VITAMIN D, 25 HYDROXY 28.14 ng/mL 03/06/2015 [...] eye pain 019 Eyes No eye tearing 0 03/2019 Eyes No eye trauma 01/31 Eyes [...] accomodation 02/14/2019 None Full Exam - General 1995 Ears/Nose/Throat otoscopic exam Overall: external auditory canals clear 02/14/2019 None Full Exam - General 1994 Ears/Nose/Throat otoscopic exam Overall: tympanic membranes clear 02/14/2019 None Full Exam - General 1994 Ears/Nose/Throat lips/teeth/gingiva Overall: benign lips 02/14/2019 None Full Exam - General 1995 Ears/Nose/Throat lips/teeth/gingiva Overall: normal dentition 02/14/2019 None Full Exam - General 1994 Ears/Nose/Throat oral cavity/pharynx/larynx Overall: oral mucosa clear 02/14/2019 None Full Exam - General 1995 Ears/Nose/Throat oral cavity/pharynx/larynx Overall: oropharyngeal mucosa clear 02/14/2019 None Full Exam - General 1995 Ears/Nose/Throat oral cavity/pharynx/larynx Overall: hypopharynx benign 02/14/2019 [...] Exam - ENT Respiratory auscultation Diffuse: diminished 05/0 10/2016 None Full Exam - General 1994 [...] Date URINALYSIS NONAUTO W /O SCOPE CPT-4: 09371 01/31/2019 URINALYSIS NONAUTO W /O SCOPE CPT-4: 59242 01/12/2019 URINALYSIS NONAUTO W /O SCOPE CPT-4: 63159 12/06/2018 URINALYSIS NONAUTO W /O SCOPE CPT-4: 65569 11/15/2018 URINALYSIS NONAUTO W /O SCOPE CPT-4: 72522 08/18/2018 ADMIN INFLUENZA VIRU S VAC CPT-4: G0008 04/20/2018 FLU VACC PRSV FREE I NC ANTIG Formatting Model/CDA Sections, Assigned to/Amparo Mims CPT-4: [id number] 04/20/2018 PPPS, SUBSEQ VISIT CPT- 4: G0439 02/09/2018 PPPS, SUBSEQ VISIT CPT- 4: G0439 02/03/2017 ADMIN INFLUENZA VIRU S VAC CPT-4: G0008 04/08/2016 ADMIN PNEUMOCOCCAL V ACCINE SNOMED CT: 84083326 CPT-4: G0009 04/08/2016 PNEUMOCOCCAL VACC [address]: 32699746 CPT-4: 79325 04/08/2016 FLU VACC PRSV FREE I NC ANTIG CPT-4: 57682 04/08/2016 Vital Signs Date Vital 03/09/2019 Blood Pressure 1: 108/64 Code: 8480-6 Heart Rate 1: 86 bpm Height: 5'7" SpO2: 94% Weight: 02/23/2019 Blood Pressure 1: 120/60 Code: 8480-6 BMI: 41.2 Code: 16800-8 Heart Rate 1: 80 bpm Height: 5'7" SpO2: 95% Weight: 263 lbs 02/14/2019 Blood Pressure 1: 110/60 Code: 8480-6 BMI: 41.0 Code: 18059-5 Heart Rate 1: 81 bpm Height: 5'7" SpO2: 91% Weight: 262 lbs 01/31/2019 Blood Pressure 1: 120/56 Code: 8480-6 Heart Rate 1: 85 bpm Height: 5'7" SpO2: 96% Weight: 01/12/2019 Blood Pressure 1: 128/68 Code: 8480-6 BMI: 41.2 Code: 64592-1 Heart Rate 1: 82 bpm Height: 5'7" SpO2: 92% Weight: 263 lbs 12/06/2018 Blood Pressure 1: 118/70 Code: 8480-6 BMI: 41.5 Code: 76127-0 Heart Rate 1: 97 bpm Height: 5'7" SpO2: 96% Weight: 265 lbs 11/15/2018 Blood Pressure 1: 144/76 Code: 8480-6 BMI: 42.3 Code: 32503-9 Heart Rate 1: 82 bpm Height: 5'7" SpO2: 96% Weight: 270 lbs 10/25/2018 Blood Pressure 1: 128/80 Code: 8480-6 BMI: 42.0 Code: 79373-3 Heart Rate 1: 93 bpm Height: 5'7" SpO2: 95% Weight: 268 lbs 10/13/2018 Blood Pressure 1: 162/76 Code: 8480-6 BMI: 42.0 Code: 54195-2 Heart Rate 1: 71 bpm Height: 5'7" SpO2: 96% Weight: 268 lbs 09/15/2018 Blood Pressure 1: 154/86 Code: 8480-6 BMI: 42.9 Code: 57404-2 Heart Rate 1: 88 bpm Height: 5'7" SpO2: 94% Weight: 274 lbs 08/15/2018 Blood Pressure 1: 140/90 Code: 8480-6 BMI: 40.7 Code: 85262-2 Heart Rate 1: 70 bpm Height: 5'7" SpO2: 93% Weight: 260 lbs 08/01/2018 Blood Pressure 1: 130/70 Code: 8480-6 BMI: 40.7 Code: 41670-5 Heart Rate 1: 80 bpm Height: 5'7" SpO2: 93% Weight: 260 lbs 04/20/2018 Blood Pressure 1: 128/68 Code: 8480-6 BMI: 41.7 Code: 37450-5 Heart Rate 1: 85 bpm Height: 5'7" SpO2: 94% Weight: 266 lbs 02/09/2018 Blood Pressure 1: 118/70 Code: 8480-6 BMI: 42.1 Code: 39056-6 Heart Rate 1: 58 bpm Height: 5'7" SpO2: 94% Weight: 269 lbs 12/16/2017 Blood Pressure 1: 132/86 Code: 8480-6 BMI: 42.7 Code: 39056-3 Heart Rate 1: 63 bpm Height: 5'7" SpO2: 94% Weight: 272 lbs 14 o z 08/23/2017 Blood Pressure 1: 150/82 Code: 8480-6 BMI: 42.0 Code: 38066-3 Heart Rate 1: 66 bpm Height: 5'7" SpO2: 96% Weight: 268 lbs 02/03/2017 Blood Pressure 1: 138/72 Code: 8480-6 BMI: 41.2 Code: 02795-5 Heart Rate 1: 96 bpm Height: 5'7" SpO2: 97% Weight: 263 lbs 02/02/2017 Blood Pressure 1: 140/90 Code: 8480-6 BMI: 41.2 Code: 85671-9 Heart Rate 1: 103 bpm Height: 5'7" SpO2: 94% Weight: 263 lbs 11/26/2016 Blood Pressure 1: 152/88 Code: 8480-6 BMI: 41.0 Code: 97170-8 Heart Rate 1: 71 bpm Height: 5'7" SpO2: 94% Temperature: 37.7 (C ) / 99.8 (F) Weight: 262 lbs 10/07/2016 Blood Pressure 1: 148/82 Code: 8480-6 BMI: 41.7 Code: 05829-6 Heart Rate 1: 58 bpm Height: 5'7" SpO2: 96% Weight: 266 lbs 09/16/2016 Blood Pressure 1: 122/70 Code: 8480-6 BMI: 42.0 Code: 63636-9 Heart Rate 1: 65 bpm Height: 5'7" SpO2: 96% Weight: 268 lbs 09/07/2016 Blood Pressure 1: 154/60 Code: 8480-6 BMI: 42.3 Code: 07396-7 Heart Rate 1: 101 bpm Height: 5'7" SpO2: 97% Weight: 270 lbs 04/08/2016 Blood Pressure 1: 128/70 Code: 8480-6 BMI: 41.4 Code: 25674-7 Heart Rate 1: 62 bpm Height: 5'7" SpO2: 95% Weight: 264 lbs 8 oz 03/05/2016 Blood Pressure 1: 144/78 Code: 8480-6 Blood Pressure 1: 139/72 Code: 8480-6 BMI: 41.9 Code: 56196-6 Heart Rate 1: 71 bpm Height: 5'7" SpO2: 93% Weight: 267 lbs 8 oz 12/04/2015 Blood Pressure 1: 132/70 Code: 8480-6 BMI: 41.3 Code: 27607-4 Heart Rate 1: 56 bpm Height: 5'7" SpO2: 96% Weight: 264 lbs 11/18/2015 Blood Pressure 1: 138/72 Code: 8480-6 BMI: 41.0 Code: 75497-6 Heart Rate 1: 85 bpm Height: 5'7" SpO2: 93% Weight: 262 lbs 09/30/2015 Blood Pressure 1: 128/76 Code: 8480-6 BMI: 41.2 Code: 30319-9 Heart Rate 1: 70 bpm Height: 5'7" SpO2: 93% Weight: 263 lbs 09/09/2015 Blood Pressure 1: 138/80 Code: 8480-6 BMI: 40.3 Code: 64163-8 Heart Rate 1: 84 bpm Height: 5'7" SpO2: 95% Weight: 257 lbs 08/28/2015 Blood Pressure 1: 122/72 Code: 8480-6 BMI: 39.6 Code: 99419-9 Heart Rate 1: 75 bpm Height: 5'7" SpO2: 96% Weight: 253 lbs 07/09/2015 Blood Pressure 1: 140/78 Code: 8480-6 Blood Pressure 1: 135/78 Code: 8480-6 BMI: 39.5 Code: 50642-0 Heart Rate 1: 62 bpm Height: 5'7" SpO2: 95% Weight: 252 lbs 03/06/2015 Blood Pressure 1: 142/88 Code: 8480-6 BMI: 39.3 Code: 71163-8 Heart Rate 1: 65 bpm Height: 5'7" [...] rs ago 10/25/2018 None Location in the [facility] area 10/25/2018 None Quality burning 10/25/2018 [...] home 09/16/2016 None Hospital Follow Up _ Oth er: chest pressure 09/16/2016 None Hospital Follow [...] Encounters Encounter Performer Loca tion Codes Date ([id number]) 29056 EST. P ATIENT, LEVEL III Diagnosis: Pain in right knee[ICD10: M25.561] Diagnosis: Localized edema[ICD10: R60.0] Alis Spring MD, [facility] CPT- 4: 44035 03/09/2019 ([id number]) 62218 EST. P ATIENT, LEVEL III Diagnosis: Urinary tract infection, site not specified[ICD10: N39.0] Diagnosis: Localized edema[ICD10: R60.0] Alis Spring MD, [facility] CPT- 4: 61391 02/23/2019 ([id number]) 50159 EST. P ATIENT, LEVEL III Diagnosis: Localized edema[ICD10: R60.0] Diagnosis: Lumbago with sciatica, right side[ICD10: M54.41] Alis Spring MD, [facility] CPT-4: 75688 02/14/2019 11378 EST. PATIENT, LEVEL IV Diagnosis: Lumbago with sciatica, right side[ICD10: M54.41] Diagnosis: Dysuria[ICD10: R30.0] Diagnosis: Paroxysmal atrial fibrillation[ICD10: I48.0] Alis Spring MD, [facility] CPT-4: 64512 01/31/2019 ([id number]) 80766 EST. P ATIENT, LEVEL IV Diagnosis: Essential (primary) hypertension[ICD10: I10] Diagnosis: Chronic atrial fibrillation[ICD10: I48.2] Diagnosis: Localized edema[ICD10: R60.0] Diagnosis: Dysuria[ICD10: R30.0] Diagnosis: Low back pain[ICD10: M54.5] Diagnosis: Vitamin D deficiency, unspecified[ICD10: E55.9] Alis Spring MD, [facility] CPT-4: 97106 01/12/2019 ([id number]) 88515 EST. P ATIENT, LEVEL IV Diagnosis: Localized edema[ICD10: R60.0] Diagnosis: Dysuria[ICD10: R30.0] Diagnosis: Cellulitis of abdominal wall[ICD10: L03.311] Alis Spring MD, [facility] CPT-4: 15794 12/06/2018 ([id number]) 72505 EST. P ATIENT, LEVEL III Diagnosis: Dysuria[ICD10: R30.0] Diagnosis: Essential (primary) hypertension[ICD10: I10] Diagnosis: Major depressive disorder, recurrent, moderate[ICD10: F33.1] Alis Spring MD, [facility] CPT-4: 93397 11/15/2018 ([id number]) 00517 EST. P ATIENT, LEVEL IV Diagnosis: Eructation[ICD10: R14.2] Diagnosis: Nausea[ICD10: R11.0] Diagnosis: Chest pain, unspecified[ICD10: R07.9] Diagnosis: Diarrhea, unspecified[ICD10: R19.7] Alis Spring MD, [facility] CPT-4: 04546 10/25/2018 ([id number]) 17365 EST. P ATIENT, LEVEL IV Diagnosis: Essential (primary) hypertension[ICD10: I10] Diagnosis: Low back pain[ICD10: M54.5] Diagnosis: Major depressive disorder, recurrent, moderate[ICD10: F33.1] Alis Spring MD, [facility] CPT-4: 01982 10/13/2018 ([id number]) 25634 EST. P ATIENT, LEVEL IV Diagnosis: Essential (primary) hypertension[ICD10: I10] Diagnosis: Dysuria[ICD10: R30.0] Diagnosis: Low back pain[ICD10: M54.5] Alis Spring MD, [facility] CPT- 4: 97248 09/15/2018 ([id number]) 06988 EST. P ATIENT, LEVEL III Diagnosis: Essential (primary) hypertension[ICD10: I10] Diagnosis: Low back pain[ICD10: M54.5] Alis Spring MD, [facility] CPT- 4: 36810 08/15/2018 ([id number]) 00168 EST. P ATIENT, LEVEL III Diagnosis: Essential (primary) hypertension[ICD10: I10] Diagnosis: Cough[ICD10: R05] Diagnosis: Low back pain[ICD10: M54.5] Alis Spring MD, [facility] CPT- 4: 93744 08/01/2018 ([id number]) 79807 EST. P ATIENT, LEVEL IV Diagnosis: Encounter for immunization[ICD10: Z23] Diagnosis: Essential (primary) hypertension[ICD10: I10] Diagnosis: Chronic atrial fibrillation[ICD10: I48.2] Diagnosis: Major depressive disorder, recurrent, mild[ICD10: F33.0] Scarlett Spring MD, C CPT-4: 04905 04/20/2018 ([id number]) 35807 EST. P ATIENT, LEVEL IV Diagnosis: Essential (primary) hypertension[ICD10: I10] Diagnosis: Obstructive sleep apnea (adult) (pediatric)[ICD10: G47.33] Diagnosis: Chronic atrial fibrillation[ICD10: I48.2] Scarlett Spring MD, C CPT-4: 73796 12/16/2017 ([id number]) 14118 EST. P ATIENT, LEVEL IV Diagnosis: Essential (primary) hypertension[ICD10: I10] Diagnosis: Chronic atrial fibrillation[ICD10: I48.2] Scarlett Spring MD, C CPT-4: 34944 08/23/2017 ([id number]) 73366 EST. P ATIENT, LEVEL IV Diagnosis: Paroxysmal atrial fibrillation[ICD10: I48.0] Diagnosis: Essential (primary) hypertension[ICD10: I10] Scarlett Spring MD, C CPT-4: 79638 02/02/2017 25525 EST. PATIENT, LEVEL III Diagnosis: Acute laryngopharyngitis[ICD10: J06.0] Diagnosis: Cough[ICD10: R05] Diagnosis: Pleurodynia[ICD10: R07.81] Diagnosis: Other dorsalgia[ICD10: M54.89] Kassandra Spring MD, [facility] CPT-4: 51801 11/26/2016 ([id number]) 10725 EST. P ATIENT, LEVEL IV Diagnosis: Essential (primary) hypertension[ICD10: I10] Diagnosis: Pain in left knee[ICD10: M25.562] Diagnosis: Low back pain[ICD10: M54.5] Diagnosis: Major depressive disorder, recurrent, moderate[ICD10: F33.1] Scarlett Spring MD, [facility] CPT-4: 22982 10/07/2016 ([id number]) 31793 EST. P ATIENT, LEVEL IV Diagnosis: Essential (primary) hypertension[ICD10: I10] Diagnosis: Rash and other nonspecific skin eruption[ICD10: R21] Diagnosis: Major depressive disorder, recurrent, mild[ICD10: F33.0] Scarlett Spring MD, [facility] CPT-4: 12598 09/16/2016 04313 EST. PATIENT, LEVEL IV Diagnosis: Pain in left lower leg[ICD10: M79.662] Diagnosis: Pain in left knee[ICD10: M25.562] Kassandra Spring MD, [facility] CPT-4: 26197 09/07/2016 ([id number]) 45748 EST. P ATIENT, LEVEL IV Diagnosis: Encounter for immunization[ICD10: Z23] Diagnosis: Essential (primary) hypertension[ICD10: I10] Diagnosis: Mixed hyperlipidemia[ICD10: E78.2] Scarlett Spring MD, [facility] CPT- 4: 14985 04/08/2016 ([id number]) 79859 EST. P ATIENT, LEVEL III Diagnosis: Essential (primary) hypertension[ICD10: I10] Diagnosis: Shortness of breath[ICD10: R06.02] Scarlett Spring MD, [facility] CPT- 4: 52899 03/05/2016 ([id number]) 63994 EST. P ATIENT, LEVEL III Diagnosis: Chronic obstructive pulmonary disease, unspecified[ICD10: J44.9] Scarlett Spring MD, [facility] CPT-4: 64966 12/04/2015 ([id number]) 41014 EST. P ATIENT, LEVEL IV Diagnosis: Essential (primary) hypertension[ICD10: I10] Diagnosis: Allergic rhinitis due to pollen[ICD10: J30.1] Scarlett Spring MD, C CPT-4: 58734 11/18/2015 ([id number]) 87953 EST. P ATIENT, LEVEL IV Diagnosis: Localized edema[ICD10: R60.0] Diagnosis: Dysuria[ICD10: R30.0] Diagnosis: Essential (primary) hypertension[ICD10: I10] Diagnosis: Nausea[ICD10: R11.0] Alis Spring MD, [facility] CPT-4: 79996 09/30/2015 ([id number]) 95577 EST. P ATIENT, LEVEL II Diagnosis: Methicillin susceptible Staphylococcus aureus infection as the cause of diseases classified elsewhere[ICD10: B95.61] Diagnosis: Methicillin susceptible Staphylococcus aureus infection, unspecified site[ICD10: A49.01] Alis Spring MD, [facility] CPT-4: 03208 09/09/2015 ([id number]) 56669 EST. P ATIENT, LEVEL III Diagnosis: Dermatophytosis, unspecified[ICD10: B35.9] Diagnosis: Rash and other nonspecific skin eruption[ICD10: R21] Scarlett Spring MD, [facility] CPT-4: 85688 08/28/2015 ([id number]) 66118 EST. P ATIENT, LEVEL IV Diagnosis: Essential (primary) hypertension[ICD10: I10] Diagnosis: Gastro-esophageal reflux disease without esophagitis[ICD10: K21.9] Diagnosis: Other dorsalgia[ICD10: M54.89] Scarlett Spring MD, [facility] CPT-4: 51766 07/09/2015 ([id number]) [facility] LEVEL 4 Diagnosis: ESSENTIAL HYPERTENSION[ICD9: 401.9] Diagnosis: Osteoporosis[ICD9: 733.00] Diagnosis: Back pain[ICD9: 724.5] Diagnosis: Insomnia[ICD9: 780.52] Diagnosis: ESOPHAGEAL REFLUX[ICD9: 530.81] [facility] CPT-4: 75097 03/06/2015 Plan of Care Planned Activity Notes C odes Status Date Visit Plan: Right knee pain -xray k nee -tylenol as needed Edema-not well controlled-check labs increase lasix -compression wrap bilateral lower legs with lyle wraps -schedule appt with Dr Tinoco -follow up in the office in 10 days 03/09/2019 Appointment: Alis Muhammad WPtel: [address] [place], [place] [phone] (30 min) Complex 03/09/2019 Patient Education: Patient [...] peripheral edema. 02/23/2019 Appointment: Alis Muhammad WPtel: [phone] (30 min) Complex 02/23/2019 Patient Education: Patient [...] - continue current dose 02/14/2019 Appointment: Alis Muhammda WPtel: [phone] (15 min) Moderate 02/14/2019 Patient Education: Patient [...] rate is becoming uncontrolled. 01/31/2019 Appointment: Alis Muhammad: [address] [place] [address] (30 min) Complex 01/31/2019 Patient Education: Patient Medication Summary Completed 01/31/2019 Care Plan: Urine Culture Pending 01/31/2019 Care Plan: Referral Order SNOMED-CT : [id number] Pending 01/31/2019 Visit Plan: Hypertension - well [...] def-check with labs today 01/12/2019 Appointment: Alis Muhammadl: [address] [place] [address] (30 min) Complex 01/12/2019 Patient Education: Patient Medication Summary Completed 01/12/2019 Patient Education: Back Pain Completed 01/12/2019 Appointment: Alis Muhammadl: [address] [place] [address] (30 min) Complex 12/13/2018 Visit Plan: Edema [...] worsening redness, warmth, discharge. 12/06/2018 Appointment: Alis Muhammadl: [phone] (30 min) Complex 12/06/2018 Patient Education: Patient [...] as indicated 11/15/2018 Appointment: Alis Muhammad WPtel: [phone] (15 min) Moderate 11/15/2018 Patient Education: Patient [...] in ER 10/25/2018 Appointment: Alis Muhammad WPtel: [phone] (15 min) Moderate 10/25/2018 Patient Education: Patient [...] current treatment 10/13/2018 Appointment: Alis Muhammad WPtel: [phone] [phone] (15 min) Moderate 10/13/2018 Patient Education: Patient [...] Ua 09/15/2018 Appointment: Alis Muhammad WPtel: [phone] [phone] (30 min) Complex 09/15/2018 Patient [...] not improve 08/15/2018 Appointment: Alis Muhammad WPtel: [phone] (30 min) Complex 08/15/2018 Patient Education: Patient Medication Summary Completed 08/15/2018 Patient Education: Back Pain Completed 08/15/2018 Visit Plan: HTN-lyle induced cough-s top lisinopril -start losartan -monitor blood pressure and follow up in 2 weeks Low back pain-xray lumbar spine and refer for PT 08/01/2018 Appointment: Alis Muhammad WPtel: [phone] [phone] (15 min) Moderate 08/01/2018 Patient Education: Patient Medication Summary Completed 08/01/2018 Patient Education: Back Pain Completed 08/01/2018 Care Plan: X-RAY EXAM L-S SPINE 2/ VWS LOINC : 21024-9 Pending 08/01/2018 Visit Plan: Hypertension - well [...] shot today. 04/20/2018 Appointment: Scarlett Spring WPtel: [facility] (15 min) Moderate 04/20/2018 Patient Education: Patient [...] Appointment: Kassandra Argueta WPtel: [facility] [facility] - Annual Wellness Visit 02/09/2018 Patient [...] night. 12/16/2017 Appointment: Scar[facility] Spring [facility]el[phone] (15 min) Moderate 12/16/2017 Patient Education: Patient [...] becoming uncontrolled. 08/23/2017 Appointment: Scarlett Spring [facility]Ptel[phone] (15 min) Moderate 08/23/2017 Patient Education: Patient Medication Summary Completed 08/23/2017 Visit Plan: Medicare Exam - today w henrique discussed the patients past history, immunizations, preventative [...] cardiology 02/03/2017 Appointment: Kassandra Argueta WPtel: [phone] [facility] [facility] - Annual Wellness Visit 02/03/2017 Patient [...] home. 02/02/2017 Appointment: Scarlett Spring WPtel: [phone] [facility] (15 min) Moderate 02/02/2017 Patient Education: Patient [...] improve. 11/26/2016 Appointment: Kassandra Argueta WPtel: [phone] [facility] (30 min) Complex 11/26/2016 Patient [...] symptoms. 10/07/2016 Appointment: Scarlett Spring WPtel: [phone] [facility] (15 min) Moderate 10/07/2016 Patient Education: Patient Medication Summary Completed 10/07/2016 Patient Education: Obesity Completed 10/07/2016 Patient Education: Hypertension Completed 10/07/2016 Care Plan: VASCULAR STUDY Pending 10/04/2016 Care Plan: X-RAY EXAM OF KNEE 3 [facility] : 51790-0 Pending 10/04/2016 Visit Plan: Hypertension - well [...] paroxetine 09/16/2016 Appointment: Scarlett Spring WPtel: [phone] [place] (15 min) Moderate 09/16/2016 Patient Education: [...] not improve. 09/07/2016 Appointment: Kassandra Argueta WPtel: [phone] [facility] [place] (10 min) Simple 09/07/2016 [...] order 04/08/2016 Appointment: Scarlett Spring WPtel[phone] (15 min) Moderate 04/08/2016 Patient Education: Patient [...] days. 03/05/2016 Appointment: Scarlett Spring WPtel[phone] (15 min) Moderate 03/05/2016 Patient Education: Patient Medication Summary Completed 03/05/2016 Visit Plan: COPD - chronic problem for this patient. We have reviewed chronic treatment strategy, symptom control, and plans for acute exacerbations. No changes today to the current treatment plan as the patient is stable, monitor for acute changes. anoro samples given to the patient 12/04/2015 Appointment: Scarlett Spring WPtel: [phone] (15 min) Moderate 12/04/2015 Patient Education: Patient [...] spray. 11/18/2015 Appointment: Scarlett Spring WPtel: [phone] [facility] (15 min) Moderate 11/18/2015 Patient Education: Patient Medication Summary Completed 11/18/2015 Patient Education: Obesity Completed 11/18/2015 Patient Education: Hypertension Completed 11/18/2015 Appointment: Scarlett Spring WPtel: [phone] [facility] (15 min) Moderate 11/07/2015 Visit Plan: Hypertension [...] Visit Plan: MSSA of groin and under etjijkp-pjiihqoxj-cnjkwa bactrim and call if rash does not [...] report. 08/28/2015 Appointment: Scarlett Spring WPtel: [phone] (15 min) Moderate 08/28/2015 Patient Education: Patient Medication Summary Completed 08/28/2015 Care Plan: Ariela PRIEST RTS Cultured from groin Pending 08/28/2015 Visit Plan: Hypertension - well con stalinlled [...] improving. 07/09/2015 Appointment: Scarlett Spring WPtel: [phone] (15 min) Moderate 07/09/2015 Patient Education: Patient Medication Summary Completed 07/09/2015 Patient Education: Hypertension Completed 07/09/2015 Visit Plan: Hypertension - well con [place] - continue with current medications, continue with [...] improving. 03/06/2015 Appointment: Scarlett Spring WPtel: [phone] [place] (S[place] New Patient 03/06/2015 Patient Education: [...] with lyle wraps -schedule appt with Dr Tinooc -follow up in the office in 10 [...] will find out if anyone comes to [place] check UA start probiotic daily . Hypertension [...]
--- OUTSIDE RECORDS SUMMARY | 2020-01-23 13:58 | XMS REPORT | CCD ---
Author Author Jeannine Spring Organization Scarlett Spring MD, 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 Name Role Phone PP Unavailable CCM Unavailable Summary Purpose Interface Exchange Insurance Providers Payer name Policy type / Coverage type Covered republican ID Effective Begin Date Effective End Date WPS Medicare Part B Medicare Part B [id number] Unknown [facility] Medicare Part B [id number] Unkn own Family history Mother Diagnosis Age At Onset Hypertension Unknown Heart Attack Unknown Brother Diagnosis Age At Onset Heart disease Unknown Runs in the family Diagnosis Age At Onset Heart disease Unknown Daughter Diagnosis Age At Onset Heart Attack Unknown Hyperlipidemia Unknown Hypertension Unknown Social History Social History Element Codes Description Effective Dates Number of children Unknown 2 daughter lives in [place], son - does not have contact 09/16/[address]: 9075931 Quit over 10 years ago 1990 - previously smoked 2ppd x 25 years. 11/18/2015 Marital status Unknown W idowed in 201003/06/2015 Employment Unknown Retir ed was a [employer] 03/06/2015 Allergies, Adverse Reactions, Alerts Substance Reaction Codes Entered Date Inactivated Date Status * NO KNOWN FOOD MYRNA RGIES Unknown 03/06/2015 No Inactive Date Active Iodine RxNorm: 5933 03/06/2015 No Inactive Date Active Penicillin Unknown 03/06/2015 No In active Date Active Past Medical History Illness Codes Condition Status Onset Date Resolved Date Localized edema ICD-9: 782.3 ICD-10: R60.0 Active 09/29/2015 Unknown Urinary tract infect ion, site not [...] edema ICD-9: 782.3 ICD-10: R60.0 09/29/2015 Active Urinary tract infect ion, site not [...] Date Stop Date Sta tus Fill Instructions terazosin 5 mg capsule RxNorm: 666245 TAKE ONE CAPSULE BY MOUTH DAILY 02/27/2019 06/26/2019 Ac tive potassium chloride E R 10 mEq tablet,extended release RxNorm: 716724 2 Tablet(s) PO daily 02/23/2019 06/22/2019 Active 3 daily x 5 days then 2 jignesh y thereafter Lasix 20 mg tablet RxNorm: 262954 2 Tablet(s) PO daily 02/23/2019 06/22/2019 Active take 3 daily x 5 days then 2 tab daily t herafter Cipro 500 mg tablet RxNorm: 531580 1 Tablet(s) PO BID 02/23/2019 03/01/2019 Active doxycycline hyclate 100 mg tablet,delayed release RxNorm: 371058 1 Tablet(s) PO BID 02/03/2019 02/02/2019 In active doxycycline hyclate 100 mg tablet,delayed release RxNorm: 262924 1 Tablet(s) PO BID an d probiotic bid 02/03/2019 02/09/2019 Inactive may use capsule if cheaper gabapentin 100 mg ca psule RxNorm: 691479 1 Capsule(s) PO TID 01/31/2019 04/30/2019 Active Ambien 10 mg tablet RxNorm: 967844 Tablet(s) TAKE ONE TABLET BY MOUTH AT BE DTIME NEEDED 01/20/2019 05/19/2019 Active Vitamin D2 50,000 un it capsule RxNorm: 1174328 1 Capsule(s) PO QW 01/18/2019 03/18/2019 Active Ambien 10 mg tablet RxNorm: 796593 Tablet(s) TAKE ONE TABLET BY MOUTH AT BE DTIME NEEDED 12/21/2018 04/18/2019 Active mupirocin 2 % topica l ointment RxNorm: 580157 1 Application TOP BID 12/06/2018 12/19/2018 Inactive doxycycline hyclate 100 mg tablet RxNorm: 4297788 1 Tablet(s) PO BID 11/21/2018 11/27/2018 Inactive can exchange for capsule if cheaper doxycycline hyclate 100 mg tablet RxNorm: 2960808 1 Tablet(s) PO BID 11/21/2018 11/20/2018 Inactive simethicone 125 mg c hewable tablet RxNorm: 200999 1 Tablet(s) PO qid pr n 10/25/2018 No Stop Date Active promethazine 25 mg t ablet RxNorm: 568656 1 Tablet(s) PO Q6 PRN 10/25/2018 No Stop Date Active paroxetine 40 mg tablet RxNorm: 5223873 1 Tablet(s) PO daily 10/13/2018 04/10/2019 Active valsartan 160 mg tablet RxNorm: 732177 1 Tablet(s) PO daily 10/13/2018 04/10/2019 Active trazodone 50 mg tablet RxNorm: 399505 TAKE ONE TABLET BY MOUTH DAILY 09/23/2018 03/21/2019 Ac tive Ambien 10 mg tablet RxNorm: 098939 TAKE ONE TABLET BY MOUTH AT BEDTIME N EEDED 09/23/2018 11/20/2018 Inactive terazosin 5 mg capsule RxNorm: 564860 TAKE ONE CAPSULE BY MOUTH DAILY 09/23/2018 02/19/2019 In active losartan 50 mg tablet RxNorm: 693694 1 Tablet(s) PO daily 09/15/2018 10/12/2018 Inactive omeprazole 20 mg cap marina,delayed release RxNorm: 026785 TAKE ONE CAPSULE BY M OUTH EVERY NIGHT AT BEDTIME 09/12/2018 03/10/2019 Active Keflex 500 mg capsule RxNorm: 187537 1 Capsule(s) PO TID 08/18/2018 08/17/2018 Inactive Keflex 500 mg capsule RxNorm: 452177 1 Capsule(s) PO TID 08/18/2018 08/24/2018 Inactive take probiotic while on abx paroxetine 20 mg tablet RxNorm: 5518473 TAKE ONE TABLET BY MOUTH DAILY 08/12/2018 10/12/2018 In active losartan 25 mg tablet RxNorm: 398766 1 Tablet(s) PO daily 08/01/2018 09/14/2018 Inactive losartan 25 mg tablet RxNorm: 721267 1 Tablet(s) PO daily 08/01/2018 10/12/2018 Inactive trazodone 50 mg tablet RxNorm: 292973 TAKE ONE TABLET BY MOUTH DAILY 07/25/2018 09/22/2018 In active Ambien 10 mg tablet RxNorm: 668817 Tablet(s) TAKE ONE TABLET BY MOUTH AT BE DTINE 06/24/2018 09/23/2018 Inactive trazodone 50 mg tablet RxNorm: 765164 TAKE ONE TABLET BY MOUTH DAILY 04/25/2018 07/23/2018 In active Ambien 10 mg tablet RxNorm: 631072 Tablet(s) TAKE ONE TABLET BY MOUTH AT BE DTINE 03/23/2018 06/19/2018 Inactive terazosin 5 mg capsule RxNorm: 527075 TAKE ONE CAPSULE BY MOUTH DAILY 03/14/2018 09/09/2018 In active Ambien 10 mg tablet RxNorm: 575365 Tablet(s) TAKE ONE TABLET BY MOUTH AT BE DTINE 01/18/2018 09/14/2018 Inactive trazodone 50 mg tablet RxNorm: 191021 TAKE ONE TABLET BY MOUTH ONCE DAILY 01/10/2018 03/22/2018 In active trazodone 50 mg tablet RxNorm: 764269 Tablet(s) TAKE ONE TABLET BY MOUTH ONCE DAILY 01/10/2018 04/24/2018 Inactive Ambien 10 mg tablet RxNorm: 841503 Tablet(s) TAKE ONE TABLET BY MOUTH AT BE DTINE 10/22/2017 01/17/2018 Inactive trazodone 50 mg tablet RxNorm: 642921 TAKE ONE TABLET BY MOUTH ONCE DAILY 10/18/2017 01/09/2018 In active omeprazole 20 mg cap marina,delayed release RxNorm: 456644 TAKE ONE CAPSULE BY M OUTH ONCE DAILY AT BEDTIME 08/27/2017 09/11/2018 Inactive trazodone 50 mg tablet RxNorm: 112737 TAKE ONE TABLET BY MOUTH ONCE DAILY 08/18/2017 10/17/2017 In active Ambien 10 mg tablet RxNorm: 031720 Tablet(s) TAKE ONE TABLET BY MOUTH AT BE DTINE 08/18/2017 03/22/2018 Inactive paroxetine 20 mg tablet RxNorm: 8237062 TAKE ONE TABLET BY MOUTH ONCE DAILY 07/27/2017 08/11/2018 In active Ambien 10 mg tablet RxNorm: 606365 Tablet(s) TAKE ONE TABLET BY MOUTH AT BE DTINE 06/23/2017 03/22/2018 Inactive omeprazole 20 mg cap marina,delayed release RxNorm: 209734 TAKE ONE CAPSULE BY M OUTH ONCE DAILY AT BEDTIME 04/23/2017 08/20/2017 Inactive trazodone 50 mg tablet RxNorm: 371855 TAKE ONE TABLET BY MOUTH ONCE DAILY 04/13/2017 08/10/2017 In active terazosin 5 mg capsule RxNorm: 026999 Capsule(s) TAKE ONE CAPSULE BY MOUTH [facility] 04/08/2017 03/03/2018 In active Ambien 10 mg tablet RxNorm: 579733 Tablet(s) TAKE ONE TABLET BY MOUTH AT BE DTINE 02/17/2017 03/22/2018 Inactive Tylenol-Codeine #3 3 00 mg-30 mg tablet RxNorm: 634410 1 Tablet(s) PO QID as needed 02/02/2017 11/14/2018 In active metoprolol succinate ER 50 mg tablet,extended release 24 hr RxNorm: 725202 TAKE ONE TABLET BY MOUTH ONCE DAILY 12/23/2016 02/02/2017 Inactive Zithromax Z-Ted 250 mg tablet RxNorm: 177852 1 Tablet(s) PO UD 11/26/2016 02/16/2017 Inactive trazodone 50 mg tablet RxNorm: 991016 TAKE ONE TABLET BY MOUTH ONCE DAILY 11/12/2016 03/11/2017 In active Ambien 10 mg tablet RxNorm: 507769 Tablet(s) TAKE ONE TABLET BY MOUTH AT BE DTINE 10/22/2016 02/15/2017 Inactive paroxetine 20 mg tablet RxNorm: 6135253 1 Tablet(s) PO daily TAKE ONE TABLET BY MOUTH DAILY 09/16/2016 06/12/2017 Inactive meloxicam 7.5 mg tablet RxNorm: 660734 1 Tablet(s) PO daily 09/16/2016 11/14/2016 Inactive Protonix 40 mg table t,delayed release RxNorm: 343934 1 Tablet(s) PO daily 09/16/2016 08/22/2017 In active sucralfate 1 gram ta blet RxNorm: 834458 1 Tablet(s) PO TID 09/16/2016 08/22/2017 Inactive Ambien 10 mg tablet RxNorm: 753375 Tablet(s) TAKE ONE TABLET BY MOUTH AT BE DTIME 08/24/2016 03/22/2018 Inactive trazodone 50 mg tablet RxNorm: 218754 Tablet(s) TAKE ONE TABLET BY MOUTH DAILY 07/29/2016 11/11/2016 In active Ambien 10 mg tablet RxNorm: 876567 TAKE ONE TABLET BY MOUTH AT BEDTIME 06/23/2016 03/22/2018 In active Ambien 10 mg tablet RxNorm: 402932 Tablet(s) TAKE ONE TABLET BY MOUTH EVERY NIGHT AT BEDTIME 06/22/2016 06/23/2016 Inactive Lasix 40 mg tablet RxNorm: 512319 1 Tablet(s) PO daily as needed for swell ing 04/03/2016 09/15/2016 In active potassium chloride E R 20 mEq tablet,extended release RxNorm: 484948 1 Tablet(s) PO daily for swelling take with lasix as needed 04/03/2016 09/15/2016 Inactive Ambien 10 mg tablet RxNorm: 609848 Tablet(s) TAKE ONE TABLET BY MOUTH EVERY NIGHT AT BEDTIME 04/03/2016 03/22/2018 Inactive omeprazole 20 mg cap marina,delayed release RxNorm: 962009 TAKE ONE CAPSULE BY M OUTH EVERY NIGHT AT BEDTIME 03/31/2016 09/15/2016 Inactive paroxetine 20 mg tablet RxNorm: 4054569 TAKE ONE TABLET BY MOUTH DAILY 03/31/2016 09/15/2016 In active trazodone 50 mg tablet RxNorm: 362732 TAKE ONE TABLET BY MOUTH DAILY 03/20/2016 07/28/2016 In active terazosin 5 mg capsule RxNorm: 372104 TAKE ONE CAPSULE BY MOUTH DAILY 03/06/2016 10/06/2016 In active Ambien 10 mg tablet RxNorm: 740800 Tablet(s) TAKE ONE TABLET BY MOUTH EVERY NIGHT AT BEDTIME 01/17/2016 04/02/2016 Inactive loratadine 10 mg tablet RxNorm: 950060 1 Tablet(s) PO daily 01/15/2016 09/15/2016 Inactive mupirocin 2 % topica l ointment RxNorm: 284266 1 Application TOP TID 11/18/2015 12/01/2015 Inactive metoprolol succinate ER 50 mg tablet,extended release 24 hr RxNorm: 585137 1 Tablet(s) PO daily 11/18/2015 11/11/2016 Inactive loratadine 10 mg tablet RxNorm: 633675 1 Tablet(s) PO daily 11/18/2015 01/14/2016 Inactive Lasix 40 mg tablet RxNorm: 494100 1 Tablet(s) PO daily as needed for swell ing 10/30/2015 11/28/2015 In active potassium chloride E R 20 mEq tablet,extended release RxNorm: 691061 1 Tablet(s) PO daily for swelling take with lasix as needed 10/30/2015 11/28/2015 Inactive Tylenol-Codeine #3 3 00 mg-30 mg tablet RxNorm: 694203 1 Tablet(s) PO QID as needed 10/25/2015 02/01/2017 In active Ambien 10 mg tablet RxNorm: 195166 Tablet(s) TAKE ONE TABLET BY MOUTH EVERY NIGHT AT BEDTIME 10/18/2015 03/22/2018 Inactive Diflucan 150 mg tablet RxNorm: 957936 1 Tablet(s) PO daily 10/01/2015 12/03/2015 Inactive Lasix 20 mg tablet RxNorm: 914490 1 Tablet(s) PO PRN fror swelling 09/27/2015 10/29/2015 In active potassium chloride E R 10 mEq capsule,extended release RxNorm: 746680 1 Capsule(s) PO PRN for swelling take with lasix 09/27/2015 10/29/2015 Inactive Bactrim DS 800 mg-16 0 mg tablet RxNorm: 663380 1 Tablet(s) PO BID 09/02/2015 09/11/2015 Inactive Bactrim DS 800 mg-16 0 mg tablet RxNorm: 824328 1 Tablet(s) PO BID 09/02/2015 09/01/2015 Inactive nystatin 100,000 uni t/gram topical cream RxNorm: 611370 1 Gram(s) TOP TID 08/28/2015 09/26/2015 In active Diflucan 150 mg tablet RxNorm: 856067 1 Tablet(s) PO daily 08/28/2015 09/06/2015 Inactive betamethasone diprop ionate 0.05 % topical ointment RxNorm: 166392 1 Application TOP TID to affected area 08/02/2015 02/01/2017 Inactive nystatin 100,000 uni t/gram topical powder RxNorm: 583930 1 Gram(s) TOP QID 07/09/2015 08/01/2015 In active Ambien 10 mg tablet RxNorm: 236863 1 Tablet(s) PO QHS 06/19/2015 06/18/2015 Inactive Ambien 10 mg tablet RxNorm: 783262 TAKE ONE TABLET BY MOUTH EVERY NIGHT AT BEDTIME 06/19/2015 09/16/2015 Inactive Vitamin D2 50,000 un it capsule RxNorm: 902683 1 Capsule(s) PO QW 03/07/2015 03/06/2015 Inactive Vitamin D2 50,000 un it capsule RxNorm: 0585499 1 Capsule(s) PO QW 03/07/2015 05/05/2015 Inactive terazosin 5 mg capsule RxNorm: 109371 1 Capsule(s) PO daily 03/06/2015 02/28/2016 Inactive [SAVINGS FOR NON-COVERED DRUGS -- BIN:00 6685, PCN: [id number], Group: XXXXX, ID# [id number], Questions: . THIS IS NOT INSURANCE.] trazodone 50 mg tablet RxNorm: 249068 1 Tablet(s) PO daily 03/06/2015 02/28/2016 Inactive paroxetine 20 mg tablet RxNorm: 2123037 1 Tablet(s) PO daily 03/06/2015 02/28/2016 Inactive Tylenol-Codeine #3 3 00 mg-30 mg tablet RxNorm: 469127 1 Tablet(s) PO QID as needed 03/06/2015 07/02/2015 In active amlodipine 10 mg tablet RxNorm: 639772 1 Tablet(s) PO daily 03/06/2015 11/17/2015 Inactive metoprolol succinate ER 25 mg tablet,extended release 24 hr RxNorm: 507690 1 Tablet(s) PO daily 03/06/2015 11/17/2015 Inactive omeprazole 20 mg cap marina,delayed release RxNorm: 529233 1 Capsule(s) PO QHS 03/06/2015 02/28/2016 In active omeprazole 20 mg cap marina,delayed release RxNorm: 063172 1 Capsule(s) PO QHS 01/31/2015 01/30/2015 In active omeprazole 20 mg cap marina,delayed release RxNorm: 439928 1 Capsule(s) PO QHS 01/31/2015 01/30/2015 In active omeprazole 20 mg cap marina,delayed release RxNorm: 814771 1 Capsule(s) PO QHS 01/31/2015 03/05/2015 In active Ambien 10 mg tablet RxNorm: 675585 1 Tablet(s) PO QHS 12/25/2014 04/21/2015 Inactive paroxetine 20 mg tablet RxNorm: 908942 1 Tablet(s) PO daily 12/25/2014 12/24/2014 Inactive Ambien 10 mg tablet RxNorm: 673504 1 Tablet(s) PO QHS 12/25/2014 12/24/2014 Inactive paroxetine 20 mg tablet RxNorm: 741769 1 Tablet(s) PO daily 12/25/2014 03/05/2015 Inactive terazosin 5 mg capsule RxNorm: 547721 1 Capsule(s) PO daily 11/23/2014 03/05/2015 Inactive [SAVINGS FOR NON-COVERED DRUGS -- BIN:00 3585, PCN: ASPROD1, Group: XXXXX, ID# [id number], Questions: . THIS IS NOT INSURANCE.] terazosin 5 mg capsule RxNorm: 817587 1 Capsule(s) PO daily 11/23/2014 11/22/2014 Inactive Multaq 400 mg tablet RxNorm: 638773 oral No Start Date Active hydrochlorothiazide 25 mg tablet RxNorm: 610237 1 Tablet(s) PO daily No Start Date Active Vitamin D3 2,000 uni t tablet RxNorm: 657692 1 Tablet(s) PO daily No Start Date Active Zetia 10 mg tablet RxNorm: 224530 1 Tablet(s) PO daily No Start Date Active Lipitor 80 mg tablet RxNorm: 205016 1/2 Tablet(s) PO daily No Start Date Active Coumadin 4 mg tablet RxNorm: 606018 1 Tablet(s) PO daily No Start Date Active Lasix 20 mg tablet RxNorm: 319516 1 Tablet(s) PO daily No Start Date 02/22/2019 Inactive metoprolol succinate ER 25 mg tablet,extended release 24 hr RxNorm: 203142 1 Tablet(s) PO daily No Start Date 03/05/2015 Inactive Entresto 49 mg-51 mg tablet RxNorm: 3244980 1 Tablet(s) PO BID No Start Date 04/19/2018 Inactive K-Dur 10 mEq tablet, extended release RxNorm: 060528 1 Tablet(s) PO daily No Start Date 02/22/2019 Inactive sotalol 80 mg tablet RxNorm: 8885573 1 Tablet(s) PO BID No Start Date 04/19/2018 Inactive betamethasone diprop ionate 0.05 % topical ointment RxNorm: 827238 1 Application TOP TID to affected area No Start Date 08/01/2015 Inactive trazodone 50 mg tablet RxNorm: 232212 1 Tablet(s) PO daily No Start Date 03/05/2015 Inactive potassium chloride E R 10 mEq capsule,extended release RxNorm: 766981 1 Capsule(s) PO PRN for swelling take with lasix No Start Date 09/26/2015 Inactive Eliquis 5 mg tablet RxNorm: 9039136 1 Tablet(s) PO BID No Start Date 09/14/2018 Inactive amiodarone 200 mg ta blet RxNorm: 706349 1 Tablet(s) PO BID No Start Date 01/30/2019 Inactive amlodipine 10 mg tablet RxNorm: 470118 1 Tablet(s) PO daily No Start Date 03/05/2015 Inactive isosorbide mononitra te ER 30 mg tablet,extended release 24 hr RxNorm: 653987 1 Tablet(s) PO daily No Start Date 08/22/2017 Inactive aspirin 81 mg tablet ,delayed release RxNorm: 621415 1 Tablet(s) PO daily No Start Date 02/02/2017 Inactive Lasix 20 mg tablet RxNorm: 855288 1 Tablet(s) PO PRN fror swelling No Start Date 09/26/2015 Inactive lisinopril 5 mg tablet RxNorm: 707839 1 Tablet(s) PO daily No Start Date 07/31/2018 Inactive Crestor 40 mg tablet RxNorm: 662230 1 Tablet(s) PO daily No Start Date 09/15/2016 Inactive metoprolol succinate ER 100 mg tablet,extended release 24 hr RxNorm: 521759 1 Tablet(s) PO daily No Start Date 12/15/2017 Inactive Medication Administered No Medication Administered data Immunizations Vaccine Codes Date Status Influenza CVX: 141 04/20 completed Influenza CVX: 141 04/08 completed Pneumococcal (Adult) CVX: 133 04/08/2016 completed Assessments Condition Codes Effectiv e Dates Urinary tract infection, site not specified ICD-10: N39.0 ICD-9: 599.0 02/23/2019 Localized edema ICD-10: R60.0 ICD-9: 782.3 02/23/2019 Lumbago with sciatica, right side IC [...] Visit Reason For Visit Effective Dates Notes Hospital Follow Up 02/23/2019 low back pain [...] Observation Code Item Item Code Result Date CULTURE, URINE M100 URIN E CULTURE See Note 02/03/2019 Pt [id number] PT 24.7 seconds 01/12/2019 Pt Bdd3277 INR 2.3 01/12/2019 Pt [id number] Low Intensity - 1.5-2.0 01/12/2019 Pt [id number] Mod intensity - 2.0-3.0 01/12/2019 Pt Llw0708 Hi intensity - 3.0-4.0 01/12/2019 Cbc With [...] 27.0 pg 01/12/2019 Cbc With Differential Ord2 [place]% 11.1 % 01/12/2019 Cbc With Differential Ord2 [...] 0.92 K/ul 01/12/2019 Cbc With Differential Ord2 [place] ABS# 0.4 K/ul 01/12/2019 Cbc With Differential Ord2 Eos ABS# 0.1 K/ul 01/12/2019 Cbc With Differential Ord2 Baso ABS# 0.0 K/ul 01/12/2019 Comp Metabolic Scf685 NA 141 mEq/L 01/12/2019 Comp Metabolic Dij345 K 3.8 mEq/L 01/12/2019 Comp Metabolic Kvq789 CL 105 mEq/L 01/12/2019 Comp Metabolic Bgu730 CO2 26.0 mEq/L 01/12/2019 Comp Metabolic Lqf149 AN ION GAP 14 01/12/2019 Comp Metabolic Btm312 GL UCOSE 112 mg/dL 01/12/2019 Comp Metabolic Swb186 Cr eat 1.0 mg/dL 01/12/2019 Comp Metabolic Ifs891 eG FR 60 ml/min/1.73m2 01/12 Comp Metabolic Fjq700 BUN 14 mg/dL 01/12/2019 Comp Metabolic Yot562 B/ C Ratio 14.4 Ratio 01/12/2019 Comp Metabolic Rkq962 CA LCIUM 8.8 mg/dL 01/12/2019 Comp Metabolic Mdw907 AL K PHOS 60 U/L 01/12/2019 Comp Metabolic Dkx929 T(SGOT) 22 U/L 01/12/2019 Comp Metabolic Ypy988 AL T(SGPT) 22 U/L 01/12/2019 Comp Metabolic Gvj935 BI LI T 0.5 mg/dL 01/12/2019 Comp Metabolic Vgn021 AL BUMIN 3.9 g/dL 01/12/2019 Comp Metabolic Hyh427 TP RO 6.5 g/dL 01/12/2019 Comp Metabolic Hwc596 GL OB 2.6 g/dL 01/12/2019 Comp Metabolic Lhk413 A/ G Ratio 1.5 Ratio 01/12/2019 Comp Metabolic Wpa543 Os mo 282 mOsmo 01/12/2019 Vitamin D 25 Oh Slh1584 VITAMIN D, 25 HYDROXY 30.62 ng/mL 01/12/2019 Urine Culture Ucult Comp lete >100,000 col/ml aerobic grow th sent to ref lab 11/16/2018 Culture Urine [id number] URI NE CULTURE SEE NOTES 08/22/2018 Culture Urine [id number] Con tinued Results 08/22/2018 Urine Culture Ucult Comp lete >100,000 col/ml aerobic grow th sent to ref lab 08/19/2018 Comp Metabolic Ybv195 NA 140 mEq/L 08/01/2018 Comp Metabolic Hbq056 K 4.2 mEq/L 08/01/2018 Comp Metabolic Svj647 CL 102 mEq/L 08/01/2018 Comp Metabolic Ufj191 CO2 27.0 mEq/L 08/01/2018 Comp Metabolic Bkr530 AN ION GAP 15 08/01/2018 Comp Metabolic Vsv137 GL UCOSE 107 mg/dL 08/01/2018 Comp Metabolic Beq160 Cr eat 1.0 mg/dL 08/01/2018 Comp Metabolic Fvi581 eG FR 58 ml/min/1.73m2 08/01 Comp Metabolic Tyx310 BUN 10 mg/dL 08/01/2018 Comp Metabolic Zvl982 B/ C Ratio 10.0 Ratio 08/01/2018 Comp Metabolic Aii048 CA LCIUM 8.9 mg/dL 08/01/2018 Comp Metabolic Qhy155 AL K PHOS 68 U/L 08/01/2018 Comp Metabolic Pkp958 T(SGOT) 18 U/L 08/01/2018 Comp Metabolic Oss976 AL T(SGPT) 14 U/L 08/01/2018 Comp Metabolic Thh152 BI LI T 0.5 mg/dL 08/01/2018 Comp Metabolic Lip748 AL BUMIN 4.0 g/dL 08/01/2018 Comp Metabolic Nvk736 TP RO 6.3 g/dL 08/01/2018 Comp Metabolic Bfo053 GL OB 2.3 g/dL 08/01/2018 Comp Metabolic Ocm851 A/ G Ratio 1.7 Ratio 08/01/2018 Comp Metabolic Yoe412 Os mo 279 mOsmo 08/01/2018 Tsh Ord6 [...] 27.3 pg 08/01/2018 Cbc With Differential Ord2 [place]% 9.8 % 08/01/2018 Cbc With Differential Ord2 [...] 0.79 K/ul 08/01/2018 Cbc With Differential Ord2 [place] ABS# 0.4 K/ul 08/01/2018 Cbc With Differential Ord2 Eos ABS# 0.1 K/ul 08/01/2018 Cbc With Differential Ord2 Baso ABS# 0.0 K/ul 08/01/2018 Lipid Ord30 CHOL 234 mg/dL 08/01/2018 Lipid Ord30 HDL 69.0 mg/dl 08/01/2018 Lipid Ord30 TRIG 57 mg/dL 08/01/2018 Lipid Ord30 LDL 154 mg/dL 08/01/2018 Lipid Ord30 C/HDL 3.4 Ratio 08/01/2018 Comp Metabolic Oqg271 NA 137 mEq/L 09/30/2015 Comp Metabolic Roa468 K 4.5 mEq/L 09/30/2015 Comp Metabolic Kwg151 CL 102 mEq/L 09/30/2015 Comp Metabolic Kfj869 CO2 26.0 mEq/L 09/30/2015 Comp Metabolic Ycp336 AN ION GAP 14 09/30/2015 Comp Metabolic Pxu701 GL UCOSE 89 mg/dL 09/30/2015 Comp Metabolic Rqm407 Cr eat 0.8 mg/dL 09/30/2015 Comp Metabolic Nls221 eG FR 79 ml/min/1.73m2 09/29 Comp Metabolic Oiu916 BUN 14 mg/dL 09/30/2015 Comp Metabolic Xlr571 B/ C Ratio 18.2 Ratio 09/30/2015 Comp Metabolic Iuz119 CA LCIUM 8.9 mg/dL 09/30/2015 Comp Metabolic Ooo036 AL K PHOS 65 U/L 09/30/2015 Comp Metabolic Djp030 T(SGOT) 26 U/L 09/30/2015 Comp Metabolic Exr418 AL T(SGPT) 18 U/L 09/30/2015 Comp Metabolic Jnm383 BI LI T 0.6 mg/dL 09/30/2015 Comp Metabolic Wga773 AL BUMIN 3.8 g/dL 09/30/2015 Comp Metabolic Qkp612 TP RO 6.6 g/dL 09/30/2015 Comp Metabolic Csh126 GL OB 2.8 g/dL 09/30/2015 Comp Metabolic Kln865 A/ G Ratio 1.4 Ratio 09/30/2015 Comp Metabolic Ufn925 Os mo 274 mOsmo 09/30/2015 Cbc With [...] 27.7 pg 09/30/2015 Cbc With Differential Ord2 [place]% 10.7 % 09/30/2015 Cbc With Differential Ord2 [...] 1.10 K/ul 09/30/2015 Cbc With Differential Ord2 [place] ABS# 0.6 K/ul 09/30/2015 Cbc With Differential Ord2 Eos ABS# 0.2 K/ul 09/30/2015 Cbc With Differential Ord2 Baso ABS# 0.0 K/ul 09/30/2015 Cbc With Differential Ord2 New Analyzer Notice Please note new ref ranges s tarting 08-07-2015 due to implemntation of new five part differential hematolgy analyzer. 09/30/2015 Tsh Ord6 hTSH II 1.05 uIU/mL 03/06/2015 Comp Metabolic Vln284 NA 137 mEq/L 03/06/2015 Comp Metabolic Pkd651 K 4.3 mEq/L 03/06/2015 Comp Metabolic Dfk380 CL 104 mEq/L 03/06/2015 Comp Metabolic Vws588 CO2 28.0 mEq/L 03/06/2015 Comp Metabolic Zlw960 AN ION GAP 9 03/06/2015 Comp Metabolic Cfh285 GL UCOSE 93 mg/dL 03/06/2015 Comp Metabolic Dpz547 Cr eat 0.8 mg/dL 03/06/2015 Comp Metabolic Ipd787 eG FR 81 ml/min/1.73m2 03/06 Comp Metabolic Gml078 BUN 12 mg/dL 03/06/2015 Comp Metabolic Ktu498 B/ C Ratio 16.0 Ratio 03/06/2015 Comp Metabolic Hzs419 CA LCIUM 8.9 mg/dL 03/06/2015 Comp Metabolic Bnq777 AL K PHOS 56 U/L 03/06/2015 Comp Metabolic Mhc519 T(SGOT) 22 U/L 03/06/2015 Comp Metabolic Ias139 AL T(SGPT) 15 U/L 03/06/2015 Comp Metabolic Odd930 BI LI T 0.4 mg/dL 03/06/2015 Comp Metabolic Yiq128 AL BUMIN 4.0 g/dL 03/06/2015 Comp Metabolic Nxw882 TP RO 6.5 g/dL 03/06/2015 Comp Metabolic Nne716 GL OB 2.5 g/dL 03/06/2015 Comp Metabolic Ans167 A/ G Ratio 1.6 Ratio 03/06/2015 Comp Metabolic Wpt783 Os mo 273 mOsmo 03/06/2015 Vitamin D 25 Oh Muf5825 VITAMIN D, 25 HYDROXY 28.14 ng/mL 03/06/2015 [...] Result Effective Dates Constitutional No recent illness 02/23/2019 Constitutional No [...] Respiratory dyspnea on exertion 11/18/2015 Respiratory dyspnea 04/2 11/2015 Respiratory pedal edema 11/18/2015 Gastrointestinal No abdominal [...] benign 01/31/2019 None Full Exam - General 1995 Ears/Nose/Throat oral cavity/pharynx/larynx Overall: no masses 01/31/2019 [...] accomodation 09/15/2018 None Full Exam - General 1995 Ears/Nose/Throat otoscopic exam Overall: external auditory canals clear 09/15/2018 None Full Exam - General 1994 Ears/Nose/Throat otoscopic exam Overall: tympanic membranes clear 09/15/2018 None Full Exam - General 1995 Ears/Nose/Throat lips/teeth/gingiva Overall: benign lips 09/15/2018 None Full Exam - General 1995 Ears/Nose/Throat lips/teeth/gingiva Overall: normal dentition 09/15/2018 None [...] hygiene 08/01/2018 None Full Exam - General 1995 Eyes conjunctiva/eyelids Overall: conjunctiva clear 08/01/2018 None [...] 1995 Ears/Nose/Throat oral cavity/pharynx/larynx Overall: no masses 08/01/2018 [...] Date URINALYSIS NONAUTO W /O SCOPE CPT-4: 96522 01/31/2019 URINALYSIS NONAUTO W /O SCOPE CPT-4: 19250 01/12/2019 URINALYSIS NONAUTO W /O SCOPE CPT-4: 87013 12/06/2018 URINALYSIS NONAUTO W /O SCOPE CPT-4: 88449 11/15/2018 URINALYSIS NONAUTO W /O SCOPE CPT-4: 64609 08/18/2018 ADMIN INFLUENZA VIRU S VAC CPT-4: G0008 04/20/2018 FLU VACC PRSV FREE I NC ANTIG Formatting Model/CDA Sections, Assigned to/Amparo Mims CPT-4: [id number] 04/20/2018 PPPS, SUBSEQ VISIT CPT- 4: G0439 02/09/2018 PPPS, SUBSEQ VISIT CPT- 4: G0439 02/03/2017 ADMIN INFLUENZA VIRU S VAC CPT-4: G0008 04/08/2016 ADMIN PNEUMOCOCCAL V ACCINE SNOMED CT: 08289921 CPT-4: G0009 04/08/2016 PNEUMOCOCCAL VACC [address]: 04753482 CPT-4: 27255 04/08/2016 FLU VACC PRSV FREE I NC ANTIG CPT-4: 04256 04/08/2016 Vital Signs Date Vital 02/23/2019 Blood Pressure 1: 120/60 Code: 8480-6 BMI: 41.2 Code: 45441-1 Heart Rate 1: 80 bpm Height: 5'7" SpO2: 95% Weight: 263 lbs 02/14/2019 Blood Pressure 1: 110/60 Code: 8480-6 BMI: 41.0 Code: 00895-6 Heart Rate 1: 81 bpm Height: 5'7" SpO2: 91% Weight: 262 lbs 01/31/2019 Blood Pressure 1: 120/56 Code: 8480-6 Heart Rate 1: 85 bpm Height: 5'7" SpO2: 96% Weight: 01/12/2019 Blood Pressure 1: 128/68 Code: 8480-6 BMI: 41.2 Code: 85294-8 Heart Rate 1: 82 bpm Height: 5'7" SpO2: 92% Weight: 263 lbs 12/06/2018 Blood Pressure 1: 118/70 Code: 8480-6 BMI: 41.5 Code: 21563-8 Heart Rate 1: 97 bpm Height: 5'7" SpO2: 96% Weight: 265 lbs 11/15/2018 Blood Pressure 1: 144/76 Code: 8480-6 BMI: 42.3 Code: 25628-3 Heart Rate 1: 82 bpm Height: 5'7" SpO2: 96% Weight: 270 lbs 10/25/2018 Blood Pressure 1: 128/80 Code: 8480-6 BMI: 42.0 Code: 16996-1 Heart Rate 1: 93 bpm Height: 5'7" SpO2: 95% Weight: 268 lbs 10/13/2018 Blood Pressure 1: 162/76 Code: 8480-6 BMI: 42.0 Code: 94312-3 Heart Rate 1: 71 bpm Height: 5'7" SpO2: 96% Weight: 268 lbs 09/15/2018 Blood Pressure 1: 154/86 Code: 8480-6 BMI: 42.9 Code: 47271-5 Heart Rate 1: 88 bpm Height: 5'7" SpO2: 94% Weight: 274 lbs 08/15/2018 Blood Pressure 1: 140/90 Code: 8480-6 BMI: 40.7 Code: 36747-8 Heart Rate 1: 70 bpm Height: 5'7" SpO2: 93% Weight: 260 lbs 08/01/2018 Blood Pressure 1: 130/70 Code: 8480-6 BMI: 40.7 Code: 20321-4 Heart Rate 1: 80 bpm Height: 5'7" SpO2: 93% Weight: 260 lbs 04/20/2018 Blood Pressure 1: 128/68 Code: 8480-6 BMI: 41.7 Code: 47165-7 Heart Rate 1: 85 bpm Height: 5'7" SpO2: 94% Weight: 266 lbs 02/09/2018 Blood Pressure 1: 118/70 Code: 8480-6 BMI: 42.1 Code: 38835-5 Heart Rate 1: 58 bpm Height: 5'7" SpO2: 94% Weight: 269 lbs 12/16/2017 Blood Pressure 1: 132/86 Code: 8480-6 BMI: 42.7 Code: 51340-9 Heart Rate 1: 63 bpm Height: 5'7" SpO2: 94% Weight: 272 lbs 14 o z 08/23/2017 Blood Pressure 1: 150/82 Code: 8480-6 BMI: 42.0 Code: 82993-6 Heart Rate 1: 66 bpm Height: 5'7" SpO2: 96% Weight: 268 lbs 02/03/2017 Blood Pressure 1: 138/72 Code: 8480-6 BMI: 41.2 Code: 28463-5 Heart Rate 1: 96 bpm Height: 5'7" SpO2: 97% Weight: 263 lbs 02/02/2017 Blood Pressure 1: 140/90 Code: 8480-6 BMI: 41.2 Code: 51963-8 Heart Rate 1: 103 bpm Height: 5'7" SpO2: 94% Weight: 263 lbs 11/26/2016 Blood Pressure 1: 152/88 Code: 8480-6 BMI: 41.0 Code: 45092-3 Heart Rate 1: 71 bpm Height: 5'7" SpO2: 94% Temperature: 37.7 (C ) / 99.8 (F) Weight: 262 lbs 10/07/2016 Blood Pressure 1: 148/82 Code: 8480-6 BMI: 41.7 Code: 19551-1 Heart Rate 1: 58 bpm Height: 5'7" SpO2: 96% Weight: 266 lbs 09/16/2016 Blood Pressure 1: 122/70 Code: 8480-6 BMI: 42.0 Code: 39657-9 Heart Rate 1: 65 bpm Height: 5'7" SpO2: 96% Weight: 268 lbs 09/07/2016 Blood Pressure 1: 154/60 Code: 8480-6 BMI: 42.3 Code: 49289-4 Heart Rate 1: 101 bpm Height: 5'7" SpO2: 97% Weight: 270 lbs 04/08/2016 Blood Pressure 1: 128/70 Code: 8480-6 BMI: 41.4 Code: 06812-4 Heart Rate 1: 62 bpm Height: 5'7" SpO2: 95% Weight: 264 lbs 8 oz 03/05/2016 Blood Pressure 1: 144/78 Code: 8480-6 Blood Pressure 1: 139/72 Code: 8480-6 BMI: 41.9 Code: 48395-4 Heart Rate 1: 71 bpm Height: 5'7" SpO2: 93% Weight: 267 lbs 8 oz 12/04/2015 Blood Pressure 1: 132/70 Code: 8480-6 BMI: 41.3 Code: 80472-5 Heart Rate 1: 56 bpm Height: 5'7" SpO2: 96% Weight: 264 lbs 11/18/2015 Blood Pressure 1: 138/72 Code: 8480-6 BMI: 41.0 Code: 17494-6 Heart Rate 1: 85 bpm Height: 5'7" SpO2: 93% Weight: 262 lbs 09/30/2015 Blood Pressure 1: 128/76 Code: 8480-6 BMI: 41.2 Code: 34787-8 Heart Rate 1: 70 bpm Height: 5'7" SpO2: 93% Weight: 263 lbs 09/09/2015 Blood Pressure 1: 138/80 Code: 8480-6 BMI: 40.3 Code: 77301-3 Heart Rate 1: 84 bpm Height: 5'7" SpO2: 95% Weight: 257 lbs 08/28/2015 Blood Pressure 1: 122/72 Code: 8480-6 BMI: 39.6 Code: 75379-5 Heart Rate 1: 75 bpm Height: 5'7" SpO2: 96% Weight: 253 lbs 07/09/2015 Blood Pressure 1: 140/78 Code: 8480-6 Blood Pressure 1: 135/78 Code: 8480-6 BMI: 39.5 Code: 79528-9 Heart Rate 1: 62 bpm Height: 5'7" SpO2: 95% Weight: 252 lbs 03/06/2015 Blood Pressure 1: 142/88 Code: 8480-6 BMI: 39.3 Code: 77602-2 Heart Rate 1: 65 bpm Height: 5'7" SpO2: 95% Weight: 251 lbs Functional Status No Functional Status data History of Present Illness Symptom Name Status Resu lt Effective Date Notes Onset and Resolution D enies ongoing 02/23/2019 [...] day: 2-3 02/09/2018 None hypertension Quality bailey paez hypertension 12/16/2017 None hypertension Onset and Resolution [...] Encounters Encounter Performer Loca tion Codes Date ([id number]) 46775 EST. P ATIENT, LEVEL III Diagnosis: Urinary tract infection, site not specified[ICD10: N39.0] Diagnosis: Localized edema[ICD10: R60.0] [facility] CPT- 4: 16304 02/23/2019 ([id number]) 85050 EST. P ATIENT, LEVEL III Diagnosis: Localized edema[ICD10: R60.0] Diagnosis: Lumbago with sciatica, right side[ICD10: M54.41] Alis Spring MD, [facility] CPT-4: 74446 02/14/2019 70064 EST. PATIENT, LEVEL IV Diagnosis: Lumbago with sciatica, right side[ICD10: M54.41] Diagnosis: Dysuria[ICD10: R30.0] Diagnosis: Paroxysmal atrial fibrillation[ICD10: I48.0] Alis Spring MD, [facility] CPT-4: 30237 01/31/2019 ([id number]) 98728 EST. P ATIENT, LEVEL IV Diagnosis: Essential (primary) hypertension[ICD10: I10] Diagnosis: Chronic atrial fibrillation[ICD10: I48.2] Diagnosis: Localized edema[ICD10: R60.0] Diagnosis: Dysuria[ICD10: R30.0] Diagnosis: Low back pain[ICD10: M54.5] Diagnosis: Vitamin D deficiency, unspecified[ICD10: E55.9] Alis Spring MD, [facility] CPT-4: 10989 01/12/2019 ([id number]) 68259 EST. P ATIENT, LEVEL IV Diagnosis: Localized edema[ICD10: R60.0] Diagnosis: Dysuria[ICD10: R30.0] Diagnosis: Cellulitis of abdominal wall[ICD10: L03.311] Alis Spring MD, [facility] CPT-4: 96194 12/06/2018 ([id number]) 93152 EST. P ATIENT, LEVEL III Diagnosis: Dysuria[ICD10: R30.0] Diagnosis: Essential (primary) hypertension[ICD10: I10] Diagnosis: Major depressive disorder, recurrent, moderate[ICD10: F33.1] Alis Spring MD, [facility] CPT-4: 02780 11/15/2018 ([id number]) 70505 EST. P ATIENT, LEVEL IV Diagnosis: Eructation[ICD10: R14.2] Diagnosis: Nausea[ICD10: R11.0] Diagnosis: Chest pain, unspecified[ICD10: R07.9] Diagnosis: Diarrhea, unspecified[ICD10: R19.7] Alis Spring MD, [facility] CPT-4: 73620 10/25/2018 ([id number]) 56563 EST. P ATIENT, LEVEL IV Diagnosis: Essential (primary) hypertension[ICD10: I10] Diagnosis: Low back pain[ICD10: M54.5] Diagnosis: Major depressive disorder, recurrent, moderate[ICD10: F33.1] Alis Spring MD, [facility] CPT-4: 85465 10/13/2018 ([id number]) 16101 EST. P ATIENT, LEVEL IV Diagnosis: Essential (primary) hypertension[ICD10: I10] Diagnosis: Dysuria[ICD10: R30.0] Diagnosis: Low back pain[ICD10: M54.5] Alis Spring MD, [facility] CPT- 4: 91979 09/15/2018 ([id number]) 62295 EST. P ATIENT, LEVEL III Diagnosis: Essential (primary) hypertension[ICD10: I10] Diagnosis: Low back pain[ICD10: M54.5] Alis Spring MD, [facility] CPT- 4: 62970 08/15/2018 ([id number]) 25484 EST. P ATIENT, LEVEL III Diagnosis: Essential (primary) hypertension[ICD10: I10] Diagnosis: Cough[ICD10: R05] Diagnosis: Low back pain[ICD10: M54.5] Alis Spring MD, [facility] CPT- 4: 73388 08/01/2018 ([id number]) 91999 EST. P ATIENT, LEVEL IV Diagnosis: Encounter for immunization[ICD10: Z23] Diagnosis: Essential (primary) hypertension[ICD10: I10] Diagnosis: Chronic atrial fibrillation[ICD10: I48.2] Diagnosis: Major depressive disorder, recurrent, mild[ICD10: F33.0] Scarlett [facility] MD[facility] CPT-4: 08675 04/20/2018 ([id number]) 71656 EST. P ATIENT, LEVEL IV Diagnosis: Essential (primary) hypertension[ICD10: I10] Diagnosis: Obstructive sleep apnea (adult) (pediatric)[ICD10: G47.33] Diagnosis: Chronic atrial fibrillation[ICD10: I48.2] [facility]lett [facility] CPT-4: 03660 12/16/2017 ([id number]) 82513 EST. P ATIENT, LEVEL IV Diagnosis: Essential (primary) hypertension[ICD10: I10] Diagnosis: Chronic atrial fibrillation[ICD10: I48.2] [facility]lett [facility] CPT-4: 16575 08/23/2017 ([id number]) 73941 EST. P ATIENT, LEVEL IV Diagnosis: Paroxysmal atrial fibrillation[ICD10: I48.0] Diagnosis: Essential (primary) hypertension[ICD10: I10] [facility] CPT-4: 94914 02/02/2017 07404 EST. PATIENT, LEVEL III Diagnosis: Acute laryngopharyngitis[ICD10: J06.0] Diagnosis: Cough[ICD10: R05] Diagnosis: Pleurodynia[ICD10: R07.81] Diagnosis: Other dorsalgia[ICD10: M54.89] Kassandra Spring MD, [facility] CPT-4: 53772 11/26/2016 ([id number]) 57321 EST. P ATIENT, LEVEL IV Diagnosis: Essential (primary) hypertension[ICD10: I10] Diagnosis: Pain in left knee[ICD10: M25.562] Diagnosis: Low back pain[ICD10: M54.5] Diagnosis: Major depressive disorder, recurrent, moderate[ICD10: F33.1] Scarlett Spring MD, [facility] CPT-4: 52783 10/07/2016 ([id number]) 47282 EST. P ATIENT, LEVEL IV Diagnosis: Essential (primary) hypertension[ICD10: I10] Diagnosis: Rash and other nonspecific skin eruption[ICD10: R21] Diagnosis: Major depressive disorder, recurrent, mild[ICD10: F33.0] [facility]lett [facility] CPT-4: 36274 09/16/2016 36115 EST. PATIENT, LEVEL IV Diagnosis: Pain in left lower leg[ICD10: M79.662] Diagnosis: Pain in left knee[ICD10: M25.562] Kassandra Spring MD, [facility] CPT-4: 52922 09/07/2016 ([id number]) 30022 EST. P ATIENT, LEVEL IV Diagnosis: Encounter for immunization[ICD10: Z23] Diagnosis: Essential (primary) hypertension[ICD10: I10] Diagnosis: Mixed hyperlipidemia[ICD10: E78.2] Scarlett Spring MD [facility] CPT- 4: 81176 04/08/2016 ([id number]) 69971 EST. P ATIENT, LEVEL III Diagnosis: Essential (primary) hypertension[ICD10: I10] Diagnosis: Shortness of breath[ICD10: R06.02] Scarlett Spring MD [facility] CPT- 4: 13626 03/05/2016 ([id number]) 19594 EST. P ATIENT, LEVEL III Diagnosis: Chronic obstructive pulmonary disease, unspecified[ICD10: J44.9] Scarlett Spring MD [facility] CPT-4: 13549 12/04/2015 ([id number]) 61688 EST. P ATIENT, LEVEL IV Diagnosis: Essential (primary) hypertension[ICD10: I10] Diagnosis: Allergic rhinitis due to pollen[ICD10: J30.1] Scarlett [facility] CPT-4: 73355 11/18/2015 ([id number]) 26772 EST. P ATIENT, LEVEL IV Diagnosis: Localized edema[ICD10: R60.0] Diagnosis: Dysuria[ICD10: R30.0] Diagnosis: Essential (primary) hypertension[ICD10: I10] Diagnosis: Nausea[ICD10: R11.0] Alis Spring MD, [facility] CPT-4: 25591 09/30/2015 ([id number]) 45262 EST. P ATIENT, LEVEL II Diagnosis: Methicillin susceptible Staphylococcus aureus infection as the cause of diseases classified elsewhere[ICD10: B95.61] Diagnosis: Methicillin susceptible Staphylococcus aureus infection, unspecified site[ICD10: A49.01] Alis Spring MD, [facility] CPT-4: 73080 09/09/2015 ([id number]) 04468 EST. P ATIENT, LEVEL III Diagnosis: Dermatophytosis, unspecified[ICD10: B35.9] Diagnosis: Rash and other nonspecific skin eruption[ICD10: R21] Scarlett [facility] CPT-4: 38995 08/28/2015 ([id number]) 30927 EST. P ATIENT, LEVEL IV Diagnosis: Essential (primary) hypertension[ICD10: I10] Diagnosis: Gastro-esophageal reflux disease without esophagitis[ICD10: K21.9] Diagnosis: Other dorsalgia[ICD10: M54.89] [facility] CPT-4: 68741 07/09/2015 ([id number]) OFFICE VISI T BANNER - LEVEL 4 Diagnosis: ESSENTIAL HYPERTENSION[ICD9: 401.9] Diagnosis: Osteoporosis[ICD9: 733.00] Diagnosis: Back pain[ICD9: 724.5] Diagnosis: Insomnia[ICD9: 780.52] Diagnosis: ESOPHAGEAL REFLUX[ICD9: 530.81] [facility] CPT-4: 36995 03/06/2015 Plan of Care Planned Activity Notes C odes Status Date Visit Plan: UTI -stop bactrim -star t [...] peripheral edema. 02/23/2019 Appointment: Alis Muhammad WPtel: [address] [place], [place] [phone] (30 min) Complex 02/23/2019 Patient Education: Patient [...] current dose 02/14/2019 Appointment: Alis Muhammad WPtel: [facility] [phone] (15 min) Moderate 02/14/2019 Patient Education: Patient [...] becoming uncontrolled. 01/31/2019 Appointment: Alis Muhammad WPtel: [address] [place] [address] (30 min) Complex 01/31/2019 Patient Education: Patient Medication Summary Completed 01/31/2019 Care Plan: Urine Culture Pending 01/31/2019 Care Plan: Referral Order SNOMED-CT : [id number] Pending 01/31/2019 Visit Plan: Hypertension - well [...] labs today 01/12/2019 Appointment: Alis Muhammad WPtel: [address] [place] [address] (30 min) Complex 01/12/2019 Patient Education: Patient Medication Summary Completed 01/12/2019 Patient Education: Back Pain Completed 01/12/2019 Appointment: Alis Muhammad WPtel: [address] [place] [address] (30 min) Complex 12/13/2018 Visit Plan: Edema [...] warmth, discharge. 12/06/2018 Appointment: Alis Muhammad WPtel: [facility] (30 min) Complex 12/06/2018 Patient Education: [...] indicated 11/15/2018 Appointment: Alis Muhammad WPtel: [facility] (15 min) Moderate 11/15/2018 Patient Education: Patient [...] ER 10/25/2018 Appointment: Alis Muhammad WPtel: [facility]2 [place] [phone] (15 min) Moderate 10/25/2018 Patient Education: Patient [...] treatment 10/13/2018 Appointment: Alis Muhammad WPtel: [phone] [phone] (15 min) Moderate 10/13/2018 Patient Education: Patient [...] Ua 09/15/2018 Appointment: Alis Muhammad WPtel: [phone] [phone] (30 min) Complex 09/15/2018 Patient Education: Patient [...] improve 08/15/2018 Appointment: Alis Muhammad WPtel: [facility]8 [phone] (30 min) Complex 08/15/2018 Patient Education: Patient Medication Summary Completed 08/15/2018 Patient Education: Back Pain Completed 08/15/2018 Visit Plan: HTN-onofre induced cough-s top lisinopril -start losartan -monitor blood pressure and follow up in 2 weeks Low back pain-xray lumbar spine and refer for PT 08/01/2018 Appointment: Alis Muhammad WPtel: [facility]7 [phone] (15 min) Moderate 08/01/2018 Patient Education: Patient Medication Summary Completed 08/01/2018 Patient Education: Back Pain Completed 08/01/2018 Care Plan: X-RAY EXAM L-S SPINE 08/28 VWS LOINC : 60877-1 Pending 08/01/2018 Visit Plan: Hypertension - well [...] today. 04/20/2018 Appointment: Scarlett Spring WPtel: [facility] [place] [phone] [place] (15 min) Moderate 04/20/2018 Patient Education: [...] surrogate. 02/09/2018 Appointment: Kassandra Argueta WPtel: [phone] [facility] [place] [facility] - Annual Wellness Visit 02/09/2018 Patient [...] night. 12/16/2017 Appointment: Scarlett Spring WPtel: [facility]4 [facility]66[facility] (15 min) Moderate 12/16/2017 Patient Education: [...] uncontrolled. 08/23/2017 Appointment: Scarlett Spring WPtel: [facility] (15 min) Moderate 08/23/2017 Patient Education: [...] cardiology 02/03/2017 Appointment: Kassandra Argueta WPtel: [facility]9 [phone] [place] [address] - Annual Wellness Visit 02/03/2017 Patient Education: [...] home. 02/02/2017 Appointment: Scarlett Spring WPtel: [phone] [facility] (15 min) Moderate 02/02/2017 Patient Education: Patient [...] improve. 11/26/2016 Appointment: Kassandra Argueta WPtel: [phone] [facility] (30 min) Complex 11/26/2016 Patient Education: Patient [...] symptoms. 10/07/2016 Appointment: Scar[facility] Spring [facility]Ptel[phone] [place] (15 min) Moderate 10/07/2016 Patient Education: Patient Medication Summary Completed 10/07/2016 Patient Education: Obesity Completed 10/07/2016 Patient Education: Hypertension Completed 10/07/2016 Care Plan: VASCULAR STUDY Pending 10/04/2016 Care Plan: X-RAY EXAM OF KNEE 3 [facility] : 56874-9 Pending 10/04/2016 Visit Plan: Hypertension - well [...] paroxetine 09/16/2016 Appointment: Scarlett Spring WPtel[phone] (15 min) Moderate 09/16/2016 Patient Education: Patient [...] improve. 09/07/2016 Appointment: Kassandra Argueta WPtel: [phone] [place] [place] [...] order 04/08/2016 Appointment: Scarlett Spring WPtel: [phone] [facility] [place] (15 min) Moderate 04/08/2016 Patient Education: [...] 10 days. 03/05/2016 Appointment: Scarlett Spring WPtel: [phone] [facility] [place] (15 min) Moderate 03/05/2016 Patient Education: Patient Medication Summary Completed 03/05/2016 Visit Plan: COPD - chronic problem for this patient. We have reviewed chronic treatment strategy, symptom control, and plans for acute exacerbations. No changes today to the current treatment plan as the patient is stable, monitor for acute changes. anoro samples given to the patient 12/04/2015 Appointment: Scarlett Spring WPtel: [phone] [place] (15 min) Moderate 12/04/2015 Patient Education: [...] allergy spray. 11/18/2015 Appointment: Scarlett Spring WPtel: [address] [place], [place] [address] (15 min) Moderate 11/18/2015 Patient Education: Patient Medication Summary Completed 11/18/2015 Patient Education: Obesity Completed 11/18/2015 Patient Education: Hypertension Completed 11/18/2015 Appointment: Scarlett Spring WPtel: [facility]5 [facility] (15 min) Moderate 11/07/2015 Visit Plan: Hypertension [...] Visit Plan: MSSA of groin and under lhqsofx-btanqgrqa-glmgqf bactrim and call if rash does not [...] report. 08/28/2015 Appointment: Scarlett Spring WPtel: [phone] [facility] (15 min) Moderate 08/28/2015 Patient Education: Patient [...] improving. 07/09/2015 Appointment: Scarlett Spring WPtel: [phone] [facility] (15 min) Moderate 07/09/2015 Patient Education: Patient [...] symptoms are not improving. 03/06/2015 Appointment: Scarlett Sprign WPtel: [phone] [place] ([place] New Patient 03/06/2015 Patient [...] will find out if anyone comes to [place] check UA start probiotic daily . Hypertension [...]
--- OUTSIDE RECORDS SUMMARY | 2020-01-23 14:00 | XMS REPORT | CCD ---
Author Author Jeannine Spring Organization Scarlett Spring MD, [facility] Address [address] [place] [address] Phone Care Team Providers Care Bindery Chief Name Role Phone PP Unavailable CCM Unavailable Summary Purpose Interface Exchange Insurance Providers Payer name Policy type / Coverage type Covered libertarian ID Effective Begin Date Effective End Date WPS Medicare Part B Medicare Part B [id number] Unknown [facility] [place] Medicare Part B [id number] Unkn own Family history Mother Diagnosis Age At Onset Hypertension Unknown Heart Attack Unknown Brother Diagnosis Age At Onset Heart disease Unknown Runs in the family Diagnosis Age At Onset Heart disease Unknown Daughter Diagnosis Age At Onset Heart Attack Unknown Hyperlipidemia Unknown Hypertension Unknown Social History Social History Element Codes Description Effective Dates Number of children Unknown 2 daughter lives in [place], son - does not have contact 09/16/[address]: 6211204 Quit over 10 years ago 1990 - previously smoked 2ppd x 25 years. 11/18/2015 Marital status Unknown W idowed in 201003/06/2015 Employment Unknown Retir ed was a [employer] 03/06/2015 Allergies, Adverse Reactions, Alerts Substance Reaction [...] Date Stop Date Sta tus Fill Instructions potassium chloride E R 10 mEq tablet,extended release RxNorm: 149007 2 Tablet(s) PO daily 02/23/2019 06/22/2019 Active 3 daily x 5 days then 2 jignesh y thereafter Lasix 20 mg tablet RxNorm: 092414 2 Tablet(s) PO daily 02/23/2019 06/22/2019 Active take 3 daily x 5 days then 2 tab daily t herafter Cipro 500 mg tablet RxNorm: 637857 1 Tablet(s) PO BID 02/23/2019 03/01/2019 Active doxycycline hyclate 100 mg tablet,delayed release RxNorm: 422420 1 Tablet(s) PO BID 02/03/2019 02/02/2019 In active doxycycline hyclate 100 mg tablet,delayed release RxNorm: 955588 1 Tablet(s) PO BID an d probiotic bid 02/03/2019 02/09/2019 Inactive may use capsule if cheaper gabapentin 100 mg ca psule RxNorm: 003590 1 Capsule(s) PO TID 01/31/2019 04/30/2019 Active Ambien 10 mg tablet RxNorm: 740076 Tablet(s) TAKE ONE TABLET BY MOUTH AT BE DTIME NEEDED 01/20/2019 05/19/2019 Active Vitamin D2 50,000 un it capsule RxNorm: 1009698 1 Capsule(s) PO QW 01/18/2019 03/18/2019 Active Ambien 10 mg tablet RxNorm: 144679 Tablet(s) TAKE ONE TABLET BY MOUTH AT BE DTIME NEEDED 12/21/2018 04/18/2019 Active mupirocin 2 % topica l ointment RxNorm: 901209 1 Application TOP BID 12/06/2018 12/19/2018 Inactive doxycycline hyclate 100 mg tablet RxNorm: 4122022 1 Tablet(s) PO BID 11/21/2018 11/27/2018 Inactive can exchange for capsule if cheaper doxycycline hyclate 100 mg tablet RxNorm: 4342329 1 Tablet(s) PO BID 11/21/2018 11/20/2018 Inactive simethicone 125 mg c hewable tablet RxNorm: 781542 1 Tablet(s) PO qid pr n 10/25/2018 No Stop Date Active promethazine 25 mg t ablet RxNorm: 908699 1 Tablet(s) PO Q6 PRN 10/25/2018 No Stop Date Active paroxetine 40 mg tablet RxNorm: 5277409 1 Tablet(s) PO daily 10/13/2018 04/10/2019 Active valsartan 160 mg tablet RxNorm: 227096 1 Tablet(s) PO daily 10/13/2018 04/10/2019 Active terazosin 5 mg capsule RxNorm: 399401 TAKE ONE CAPSULE BY MOUTH DAILY 09/23/2018 02/19/2019 In active trazodone 50 mg tablet RxNorm: 322558 TAKE ONE TABLET BY MOUTH DAILY 09/23/2018 03/21/2019 Ac tive Ambien 10 mg tablet RxNorm: 161946 TAKE ONE TABLET BY MOUTH AT BEDTIME N EEDED 09/23/2018 11/20/2018 Inactive losartan 50 mg tablet RxNorm: 915775 1 Tablet(s) PO daily 09/15/2018 10/12/2018 Inactive omeprazole 20 mg cap marina,delayed release RxNorm: 298393 TAKE ONE CAPSULE BY M OUTH EVERY NIGHT AT BEDTIME 09/12/2018 03/10/2019 Active Keflex 500 mg capsule RxNorm: 666409 1 Capsule(s) PO TID 08/18/2018 08/17/2018 Inactive Keflex 500 mg capsule RxNorm: 511273 1 Capsule(s) PO TID 08/18/2018 08/24/2018 Inactive take probiotic while on abx paroxetine 20 mg tablet RxNorm: 2458560 TAKE ONE TABLET BY MOUTH DAILY 08/12/2018 10/12/2018 In active losartan 25 mg tablet RxNorm: 136496 1 Tablet(s) PO daily 08/01/2018 09/14/2018 Inactive losartan 25 mg tablet RxNorm: 511153 1 Tablet(s) PO daily 08/01/2018 10/12/2018 Inactive trazodone 50 mg tablet RxNorm: 279962 TAKE ONE TABLET BY MOUTH DAILY 07/25/2018 09/22/2018 In active Ambien 10 mg tablet RxNorm: 846775 Tablet(s) TAKE ONE TABLET BY MOUTH AT BE DTIME 06/24/2018 09/23/2018 Inactive trazodone 50 mg tablet RxNorm: 691157 TAKE ONE TABLET BY MOUTH DAILY 04/25/2018 07/23/2018 In active Ambien 10 mg tablet RxNorm: 207501 Tablet(s) TAKE ONE TABLET BY MOUTH AT BE DTIME 03/23/2018 06/19/2018 Inactive terazosin 5 mg capsule RxNorm: 515765 TAKE ONE CAPSULE BY MOUTH DAILY 03/14/2018 09/09/2018 In active Ambien 10 mg tablet RxNorm: 352444 Tablet(s) TAKE ONE TABLET BY MOUTH AT BE DTIME 01/18/2018 09/14/2018 Inactive trazodone 50 mg tablet RxNorm: 656956 TAKE ONE TABLET BY MOUTH ONCE DAILY 01/10/2018 03/22/2018 In active trazodone 50 mg tablet RxNorm: 488293 Tablet(s) TAKE ONE TABLET BY MOUTH ONCE DAILY 01/10/2018 04/24/2018 Inactive Ambien 10 mg tablet RxNorm: 857410 Tablet(s) TAKE ONE TABLET BY MOUTH AT BE DTIME 10/22/2017 01/17/2018 Inactive trazodone 50 mg tablet RxNorm: 724544 TAKE ONE TABLET BY MOUTH ONCE DAILY 10/18/2017 01/09/2018 In active omeprazole 20 mg cap marina,delayed release RxNorm: 817327 TAKE ONE CAPSULE BY M OUTH ONCE DAILY AT BEDTIME 08/27/2017 09/11/2018 Inactive trazodone 50 mg tablet RxNorm: 515764 TAKE ONE TABLET BY MOUTH ONCE DAILY 08/18/2017 10/17/2017 In active Ambien 10 mg tablet RxNorm: 161821 Tablet(s) TAKE ONE TABLET BY MOUTH AT BE DTIME 08/18/2017 03/22/2018 Inactive paroxetine 20 mg tablet RxNorm: 0082979 TAKE ONE TABLET BY MOUTH ONCE DAILY 07/27/2017 08/11/2018 In active Ambien 10 mg tablet RxNorm: 667935 Tablet(s) TAKE ONE TABLET BY MOUTH AT BE DTINH 06/23/2017 03/22/2018 Inactive omeprazole 20 mg cap marina,delayed release RxNorm: 947170 TAKE ONE CAPSULE BY M OUTH ONCE DAILY AT BEDTIME 04/23/2017 08/20/2017 Inactive trazodone 50 mg tablet RxNorm: 264629 TAKE ONE TABLET BY MOUTH ONCE DAILY 04/13/2017 08/10/2017 In active terazosin 5 mg capsule RxNorm: 358567 Capsule(s) TAKE ONE CAPSULE BY MOUTH [facility] 04/08/2017 03/03/2018 In active Ambien 10 mg tablet RxNorm: 905334 Tablet(s) TAKE ONE TABLET BY MOUTH AT BE DTINH 02/17/2017 03/22/2018 Inactive Tylenol-Codeine #3 3 00 mg-30 mg tablet RxNorm: 613094 1 Tablet(s) PO QID as needed 02/02/2017 11/14/2018 In active metoprolol succinate ER 50 mg tablet,extended release 24 hr RxNorm: 575579 TAKE ONE TABLET BY MOUTH ONCE DAILY 12/23/2016 02/02/2017 Inactive Zithromax Z-Ted 250 mg tablet RxNorm: 985571 1 Tablet(s) PO UD 11/26/2016 02/16/2017 Inactive trazodone 50 mg tablet RxNorm: 281148 TAKE ONE TABLET BY MOUTH ONCE DAILY 11/12/2016 03/11/2017 In active Ambien 10 mg tablet RxNorm: 644217 Tablet(s) TAKE ONE TABLET BY MOUTH AT BE DTINH 10/22/2016 02/15/2017 Inactive paroxetine 20 mg tablet RxNorm: 3414225 1 Tablet(s) PO daily TAKE ONE TABLET BY MOUTH DAILY 09/16/2016 06/12/2017 Inactive meloxicam 7.5 mg tablet RxNorm: 436626 1 Tablet(s) PO daily 09/16/2016 11/14/2016 Inactive Protonix 40 mg table t,delayed release RxNorm: 376663 1 Tablet(s) PO daily 09/16/2016 08/22/2017 In active sucralfate 1 gram ta blet RxNorm: 770367 1 Tablet(s) PO TID 09/16/2016 08/22/2017 Inactive Ambien 10 mg tablet RxNorm: 557078 Tablet(s) TAKE ONE TABLET BY MOUTH AT BE DTIME 08/24/2016 03/22/2018 Inactive trazodone 50 mg tablet RxNorm: 255829 Tablet(s) TAKE ONE TABLET BY MOUTH DAILY 07/29/2016 11/11/2016 In active Ambien 10 mg tablet RxNorm: 354794 TAKE ONE TABLET BY MOUTH AT BEDTIME 06/23/2016 03/22/2018 In active Ambien 10 mg tablet RxNorm: 005425 Tablet(s) TAKE ONE TABLET BY MOUTH EVERY NIGHT AT BEDTIME 06/22/2016 06/23/2016 Inactive Lasix 40 mg tablet RxNorm: 042303 1 Tablet(s) PO daily as needed for swell ing 04/03/2016 09/15/2016 In active potassium chloride E R 20 mEq tablet,extended release RxNorm: 491014 1 Tablet(s) PO daily for swelling take with lasix as needed 04/03/2016 09/15/2016 Inactive Ambien 10 mg tablet RxNorm: 130723 Tablet(s) TAKE ONE TABLET BY MOUTH EVERY NIGHT AT BEDTIME 04/03/2016 03/22/2018 Inactive omeprazole 20 mg cap marina,delayed release RxNorm: 209623 TAKE ONE CAPSULE BY M OUTH EVERY NIGHT AT BEDTIME 03/31/2016 09/15/2016 Inactive paroxetine 20 mg tablet RxNorm: 0298767 TAKE ONE TABLET BY MOUTH DAILY 03/31/2016 09/15/2016 In active trazodone 50 mg tablet RxNorm: 416171 TAKE ONE TABLET BY MOUTH DAILY 03/20/2016 07/28/2016 In active terazosin 5 mg capsule RxNorm: 686775 TAKE ONE CAPSULE BY MOUTH DAILY 03/06/2016 10/06/2016 In active Ambien 10 mg tablet RxNorm: 599901 Tablet(s) TAKE ONE TABLET BY MOUTH EVERY NIGHT AT BEDTIME 01/17/2016 04/02/2016 Inactive loratadine 10 mg tablet RxNorm: 395516 1 Tablet(s) PO daily 01/15/2016 09/15/2016 Inactive mupirocin 2 % topica l ointment RxNorm: 486928 1 Application TOP TID 11/18/2015 12/01/2015 Inactive metoprolol succinate ER 50 mg tablet,extended release 24 hr RxNorm: 324824 1 Tablet(s) PO daily 11/18/2015 11/11/2016 Inactive loratadine 10 mg tablet RxNorm: 830670 1 Tablet(s) PO daily 11/18/2015 01/14/2016 Inactive Lasix 40 mg tablet RxNorm: 443592 1 Tablet(s) PO daily as needed for swell ing 10/30/2015 11/28/2015 In active potassium chloride E R 20 mEq tablet,extended release RxNorm: 972088 1 Tablet(s) PO daily for swelling take with lasix as needed 10/30/2015 11/28/2015 Inactive Tylenol-Codeine #3 3 00 mg-30 mg tablet RxNorm: 111383 1 Tablet(s) PO QID as needed 10/25/2015 02/01/2017 In active Ambien 10 mg tablet RxNorm: 772220 Tablet(s) TAKE ONE TABLET BY MOUTH EVERY NIGHT AT BEDTIME 10/18/2015 03/22/2018 Inactive Diflucan 150 mg tablet RxNorm: 653898 1 Tablet(s) PO daily 10/01/2015 12/03/2015 Inactive Lasix 20 mg tablet RxNorm: 366967 1 Tablet(s) PO PRN fror swelling 09/27/2015 10/29/2015 In active potassium chloride E R 10 mEq capsule,extended release RxNorm: 377821 1 Capsule(s) PO PRN for swelling take with lasix 09/27/2015 10/29/2015 Inactive Bactrim DS 800 mg-16 0 mg tablet RxNorm: 884728 1 Tablet(s) PO BID 09/02/2015 09/11/2015 Inactive Bactrim DS 800 mg-16 0 mg tablet RxNorm: 258064 1 Tablet(s) PO BID 09/02/2015 09/01/2015 Inactive nystatin 100,000 uni t/gram topical cream RxNorm: 577305 1 Gram(s) TOP TID 08/28/2015 09/26/2015 In active Diflucan 150 mg tablet RxNorm: 979168 1 Tablet(s) PO daily 08/28/2015 09/06/2015 Inactive betamethasone diprop ionate 0.05 % topical ointment RxNorm: 121629 1 Application TOP TID to affected area 08/02/2015 02/01/2017 Inactive nystatin 100,000 uni t/gram topical powder RxNorm: 948794 1 Gram(s) TOP QID 07/09/2015 08/01/2015 In active Ambien 10 mg tablet RxNorm: 273578 1 Tablet(s) PO QHS 06/19/2015 06/18/2015 Inactive Ambien 10 mg tablet RxNorm: 244698 TAKE ONE TABLET BY MOUTH EVERY NIGHT AT BEDTIME 06/19/2015 09/16/2015 Inactive Vitamin D2 50,000 un it capsule RxNorm: 729828 1 Capsule(s) PO QW 03/07/2015 03/06/2015 Inactive Vitamin D2 50,000 un it capsule RxNorm: 6520196 1 Capsule(s) PO QW 03/07/2015 05/05/2015 Inactive terazosin 5 mg capsule RxNorm: 655235 1 Capsule(s) PO daily 03/06/2015 02/28/2016 Inactive [SAVINGS FOR NON-COVERED DRUGS -- BIN:00 3585, PCN: [id number], Group: XXXXX, ID# [id number], Questions: . THIS IS NOT INSURANCE.] trazodone 50 mg tablet RxNorm: 697957 1 Tablet(s) PO daily 03/06/2015 02/28/2016 Inactive paroxetine 20 mg tablet RxNorm: 8412884 1 Tablet(s) PO daily 03/06/2015 02/28/2016 Inactive Tylenol-Codeine #3 3 00 mg-30 mg tablet RxNorm: 330891 1 Tablet(s) PO QID as needed 03/06/2015 07/02/2015 In active amlodipine 10 mg tablet RxNorm: 502357 1 Tablet(s) PO daily 03/06/2015 11/17/2015 Inactive metoprolol succinate ER 25 mg tablet,extended release 24 hr RxNorm: 366663 1 Tablet(s) PO daily 03/06/2015 11/17/2015 Inactive omeprazole 20 mg cap marina,delayed release RxNorm: 310966 1 Capsule(s) PO QHS 03/06/2015 02/28/2016 In active omeprazole 20 mg cap marina,delayed release RxNorm: 234106 1 Capsule(s) PO QHS 01/31/2015 01/30/2015 In active omeprazole 20 mg cap marina,delayed release RxNorm: 584702 1 Capsule(s) PO QHS 01/31/2015 01/30/2015 In active omeprazole 20 mg cap marina,delayed release RxNorm: 075431 1 Capsule(s) PO QHS 01/31/2015 03/05/2015 In active Ambien 10 mg tablet RxNorm: 263660 1 Tablet(s) PO QHS 12/25/2014 04/21/2015 Inactive paroxetine 20 mg tablet RxNorm: 852424 1 Tablet(s) PO daily 12/25/2014 12/24/2014 Inactive Ambien 10 mg tablet RxNorm: 221946 1 Tablet(s) PO QHS 12/25/2014 12/24/2014 Inactive paroxetine 20 mg tablet RxNorm: 219599 1 Tablet(s) PO daily 12/25/2014 03/05/2015 Inactive terazosin 5 mg capsule RxNorm: 175274 1 Capsule(s) PO daily 11/23/2014 03/05/2015 Inactive [SAVINGS FOR NON-COVERED DRUGS -- BIN:00 8435, PCN: ASPROD1, Group: XXXXX, ID# XXXXXXX, Questions: . THIS IS NOT INSURANCE.] terazosin 5 mg capsule RxNorm: 490129 1 Capsule(s) PO daily 11/23/2014 11/22/2014 Inactive Multaq 400 mg tablet RxNorm: 801090 oral No Start Date Active hydrochlorothiazide 25 mg tablet RxNorm: 096128 1 Tablet(s) PO daily No Start Date Active Vitamin D3 2,000 uni t tablet RxNorm: 655826 1 Tablet(s) PO daily No Start Date Active Zetia 10 mg tablet RxNorm: 949825 1 Tablet(s) PO daily No Start Date Active Lipitor 80 mg tablet RxNorm: 794249 1/2 Tablet(s) PO daily No Start Date Active Coumadin 4 mg tablet RxNorm: 497119 1 Tablet(s) PO daily No Start Date Active Lasix 20 mg tablet RxNorm: 094542 1 Tablet(s) PO daily No Start Date 02/22/2019 Inactive metoprolol succinate ER 25 mg tablet,extended release 24 hr RxNorm: 476230 1 Tablet(s) PO daily No Start Date 03/05/2015 Inactive Entresto 49 mg-51 mg tablet RxNorm: 5167364 1 Tablet(s) PO BID No Start Date 04/19/2018 Inactive K-Dur 10 mEq tablet, extended release RxNorm: 727747 1 Tablet(s) PO daily No Start Date 02/22/2019 Inactive sotalol 80 mg tablet RxNorm: 8315005 1 Tablet(s) PO BID No Start Date 04/19/2018 Inactive betamethasone diprop ionate 0.05 % topical ointment RxNorm: 619211 1 Application TOP TID to affected area No Start Date 08/01/2015 Inactive trazodone 50 mg tablet RxNorm: 030300 1 Tablet(s) PO daily No Start Date 03/05/2015 Inactive potassium chloride E R 10 mEq capsule,extended release RxNorm: 471026 1 Capsule(s) PO PRN for swelling take with lasix No Start Date 09/26/2015 Inactive Eliquis 5 mg tablet RxNorm: 8368766 1 Tablet(s) PO BID No Start Date 09/14/2018 Inactive amiodarone 200 mg ta blet RxNorm: 509552 1 Tablet(s) PO BID No Start Date 01/30/2019 Inactive amlodipine 10 mg tablet RxNorm: 025577 1 Tablet(s) PO daily No Start Date 03/05/2015 Inactive isosorbide mononitra te ER 30 mg tablet,extended release 24 hr RxNorm: 261826 1 Tablet(s) PO daily No Start Date 08/22/2017 Inactive aspirin 81 mg tablet ,delayed release RxNorm: 462162 1 Tablet(s) PO daily No Start Date 02/02/2017 Inactive Lasix 20 mg tablet RxNorm: 121833 1 Tablet(s) PO PRN fror swelling No Start Date 09/26/2015 Inactive lisinopril 5 mg tablet RxNorm: 553317 1 Tablet(s) PO daily No Start Date 07/31/2018 Inactive Crestor 40 mg tablet RxNorm: 183532 1 Tablet(s) PO daily No Start Date 09/15/2016 Inactive metoprolol succinate ER 100 mg tablet,extended release 24 hr RxNorm: 919622 1 Tablet(s) PO daily No Start Date [...] URIN E CULTURE See Note 02/03/2019 Pt [id number] PT 24.7 seconds 01/12/2019 Pt Nqw2386 INR 2.3 01/12/2019 Pt Qzn5859 Low Intensity - 1.5-2.0 01/12/2019 Pt Mgu2791 Mod intensity - 2.0-3.0 01/12/2019 Pt Njj8911 Hi intensity - 3.0-4.0 01/12/2019 Cbc With [...] 27.0 pg 01/12/2019 Cbc With Differential Ord2 Griggs% 11.1 % 01/12/2019 Cbc With Differential Ord2 [...] 0.92 K/ul 01/12/2019 Cbc With Differential Ord2 Griggs ABS# 0.4 K/ul 01/12/2019 Cbc With Differential Ord2 Eos ABS# 0.1 K/ul 01/12/2019 Cbc With Differential Ord2 Baso ABS# 0.0 K/ul 01/12/2019 Comp Metabolic Wae514 NA 141 mEq/L 01/12/2019 Comp Metabolic Pwd829 K 3.8 mEq/L 01/12/2019 Comp Metabolic Mvy312 CL 105 mEq/L 01/12/2019 Comp Metabolic Rgx239 CO2 26.0 mEq/L 01/12/2019 Comp Metabolic Izo518 AN ION GAP 14 01/12/2019 Comp Metabolic Hhb547 GL UCOSE 112 mg/dL 01/12/2019 Comp Metabolic Clt234 Cr eat 1.0 mg/dL 01/12/2019 Comp Metabolic Cze944 eG FR 60 ml/min/1.73m2 01/12 Comp Metabolic Pfp964 BUN 14 mg/dL 01/12/2019 Comp Metabolic Egi589 B/ C Ratio 14.4 Ratio 01/12/2019 Comp Metabolic Tyj193 CA LCIUM 8.8 mg/dL 01/12/2019 Comp Metabolic Zbg656 AL K PHOS 60 U/L 01/12/2019 Comp Metabolic Ovj549 T(SGOT) 22 U/L 01/12/2019 Comp Metabolic Iph427 AL T(SGPT) 22 U/L 01/12/2019 Comp Metabolic Rcy809 BI LI T 0.5 mg/dL 01/12/2019 Comp Metabolic Pny916 AL BUMIN 3.9 g/dL 01/12/2019 Comp Metabolic Byc508 TP RO 6.5 g/dL 01/12/2019 Comp Metabolic Hqv827 GL OB 2.6 g/dL 01/12/2019 Comp Metabolic Qhw829 A/ G Ratio 1.5 Ratio 01/12/2019 Comp Metabolic Ynq774 Os mo 282 mOsmo 01/12/2019 Vitamin D 25 Oh Dzc9049 VITAMIN D, 25 HYDROXY 30.62 ng/mL 01/12/2019 Urine Culture Ucult Comp lete >100,000 col/ml aerobic grow th sent to ref lab 11/16/2018 Culture Urine [id number] URI NE CULTURE SEE NOTES 08/22/2018 Culture Urine [id number] Con tinued Results 08/22/2018 Urine Culture Ucult Comp lete >100,000 col/ml aerobic grow th sent to ref lab 08/19/2018 Comp Metabolic Wld256 NA 140 mEq/L 08/01/2018 Comp Metabolic Exu841 K 4.2 mEq/L 08/01/2018 Comp Metabolic Wpc406 CL 102 mEq/L 08/01/2018 Comp Metabolic Hqv836 CO2 27.0 mEq/L 08/01/2018 Comp Metabolic Jxg532 AN ION GAP 15 08/01/2018 Comp Metabolic Mbs598 GL UCOSE 107 mg/dL 08/01/2018 Comp Metabolic Eaf932 Cr eat 1.0 mg/dL 08/01/2018 Comp Metabolic Wex298 eG FR 58 ml/min/1.73m2 08/01 Comp Metabolic Xsr375 BUN 10 mg/dL 08/01/2018 Comp Metabolic Sbs505 B/ C Ratio 10.0 Ratio 08/01/2018 Comp Metabolic Rmq698 CA LCIUM 8.9 mg/dL 08/01/2018 Comp Metabolic Ocp672 AL K PHOS 68 U/L 08/01/2018 Comp Metabolic Xsf521 T(SGOT) 18 U/L 08/01/2018 Comp Metabolic Fan302 AL T(SGPT) 14 U/L 08/01/2018 Comp Metabolic Lgp957 BI LI T 0.5 mg/dL 08/01/2018 Comp Metabolic Ear915 AL BUMIN 4.0 g/dL 08/01/2018 Comp Metabolic Hhf556 TP RO 6.3 g/dL 08/01/2018 Comp Metabolic Xlf571 GL OB 2.3 g/dL 08/01/2018 Comp Metabolic Xii633 A/ G Ratio 1.7 Ratio 08/01/2018 Comp Metabolic Rrf885 Os mo 279 mOsmo 08/01/2018 Tsh Ord6 [...] 27.3 pg 08/01/2018 Cbc With Differential Ord2 Griggs% 9.8 % 08/01/2018 Cbc With Differential Ord2 [...] 0.79 K/ul 08/01/2018 Cbc With Differential Ord2 [place] ABS# 0.4 K/ul 08/01/2018 Cbc With Differential Ord2 Eos ABS# 0.1 K/ul 08/01/2018 Cbc With Differential Ord2 Baso ABS# 0.0 K/ul 08/01/2018 Lipid Ord30 CHOL 234 mg/dL 08/01/2018 Lipid Ord30 HDL 69.0 mg/dl 08/01/2018 Lipid Ord30 TRIG 57 mg/dL 08/01/2018 Lipid Ord30 LDL 154 mg/dL 08/01/2018 Lipid Ord30 C/HDL 3.4 Ratio 08/01/2018 Comp Metabolic Hso531 NA 137 mEq/L 09/30/2015 Comp Metabolic Wxq361 K 4.5 mEq/L 09/30/2015 Comp Metabolic Pns744 CL 102 mEq/L 09/30/2015 Comp Metabolic Ehy352 CO2 26.0 mEq/L 09/30/2015 Comp Metabolic Bie535 AN ION GAP 14 09/30/2015 Comp Metabolic Nil329 GL UCOSE 89 mg/dL 09/30/2015 Comp Metabolic Rax017 Cr eat 0.8 mg/dL 09/30/2015 Comp Metabolic Kqe004 eG FR 79 ml/min/1.73m2 09/29 Comp Metabolic Kzn734 BUN 14 mg/dL 09/30/2015 Comp Metabolic Ucg001 B/ C Ratio 18.2 Ratio 09/30/2015 Comp Metabolic Ruc098 CA LCIUM 8.9 mg/dL 09/30/2015 Comp Metabolic Llq579 AL K PHOS 65 U/L 09/30/2015 Comp Metabolic Gow503 T(SGOT) 26 U/L 09/30/2015 Comp Metabolic Duy485 AL T(SGPT) 18 U/L 09/30/2015 Comp Metabolic Bqf764 BI LI T 0.6 mg/dL 09/30/2015 Comp Metabolic Kvh332 AL BUMIN 3.8 g/dL 09/30/2015 Comp Metabolic Krs259 TP RO 6.6 g/dL 09/30/2015 Comp Metabolic Geh924 GL OB 2.8 g/dL 09/30/2015 Comp Metabolic Mjg676 A/ G Ratio 1.4 Ratio 09/30/2015 Comp Metabolic Dxy389 Os mo 274 mOsmo 09/30/2015 Cbc With [...] 27.7 pg 09/30/2015 Cbc With Differential Ord2 Griggs% 10.7 % 09/30/2015 Cbc With Differential Ord2 [...] 1.10 K/ul 09/30/2015 Cbc With Differential Ord2 [place] ABS# 0.6 K/ul 09/30/2015 Cbc With Differential Ord2 Eos ABS# 0.2 K/ul 09/30/2015 Cbc With Differential Ord2 Baso ABS# 0.0 K/ul 09/30/2015 Cbc With Differential Ord2 New Analyzer Notice Please note new ref ranges s tarting 08-07-2015 due to implemntation of new five part differential hematolgy analyzer. 09/30/2015 Tsh Ord6 hTSH II 1.05 uIU/mL 03/06/2015 Comp Metabolic Rvq723 NA 137 mEq/L 03/06/2015 Comp Metabolic Fzi614 K 4.3 mEq/L 03/06/2015 Comp Metabolic Unn712 CL 104 mEq/L 03/06/2015 Comp Metabolic Vjy338 CO2 28.0 mEq/L 03/06/2015 Comp Metabolic Jwe313 AN ION GAP 9 03/06/2015 Comp Metabolic Onq495 GL UCOSE 93 mg/dL 03/06/2015 Comp Metabolic Xan193 Cr eat 0.8 mg/dL 03/06/2015 Comp Metabolic Ymp803 eG FR 81 ml/min/1.73m2 03/06 Comp Metabolic Zbe035 BUN 12 mg/dL 03/06/2015 Comp Metabolic Twe091 B/ C Ratio 16.0 Ratio 03/06/2015 Comp Metabolic Che704 CA LCIUM 8.9 mg/dL 03/06/2015 Comp Metabolic Kpv375 AL K PHOS 56 U/L 03/06/2015 Comp Metabolic Icp903 T(SGOT) 22 U/L 03/06/2015 Comp Metabolic Dlc397 AL T(SGPT) 15 U/L 03/06/2015 Comp Metabolic Hvf180 BI LI T 0.4 mg/dL 03/06/2015 Comp Metabolic Hvf859 AL BUMIN 4.0 g/dL 03/06/2015 Comp Metabolic Qgd582 TP RO 6.5 g/dL 03/06/2015 Comp Metabolic Hbn305 GL OB 2.5 g/dL 03/06/2015 Comp Metabolic Jvz975 A/ G Ratio 1.6 Ratio 03/06/2015 Comp Metabolic Ggc960 Os mo 273 mOsmo 03/06/2015 Vitamin D 25 Oh Ypl1038 VITAMIN D, 25 HYDROXY 28.14 ng/mL 03/06/2015 [...] General 1995 Ears/Nose/Throat lips/teeth/gingiva Overall: benign lips 02/14/2019 None [...] lips 01/31/2019 None Full Exam - General 1994 Ears/Nose/Throat lips/teeth/gingiva Overall: normal dentition 01/31/2019 None [...] atraumatic 09/15/2018 None Full Exam - General 1995 Musculoskeletal head and neck Overall: cervical spine [...] 08/01/2018 None Full Exam - General 1995 Lymphatic [...] accomodation 09/16/2016 None Full Exam - General 1995 Ears/Nose/Throat lips/teeth/gingiva Overall: benign lips 09/16/2016 None [...] Date URINALYSIS NONAUTO W /O SCOPE CPT-4: 43606 01/31/2019 URINALYSIS NONAUTO W /O SCOPE CPT-4: 12911 01/12/2019 URINALYSIS NONAUTO W /O SCOPE CPT-4: 88038 12/06/2018 URINALYSIS NONAUTO W /O SCOPE CPT-4: 84083 11/15/2018 URINALYSIS NONAUTO W /O SCOPE CPT-4: 59892 08/18/2018 ADMIN INFLUENZA VIRU S VAC CPT-4: G0008 04/20/2018 FLU VACC PRSV FREE I NC ANTIG Formatting Model/CDA Sections, Assigned to/Amparo Mims CPT-4: 92684Hqndaqf 04/20/2018 PPPS, SUBSEQ VISIT CPT- 4: G0439 02/09/2018 PPPS, SUBSEQ VISIT CPT- 4: G0439 02/03/2017 ADMIN INFLUENZA VIRU S VAC CPT-4: G0008 04/08/2016 ADMIN PNEUMOCOCCAL V ACCINE SNOMED CT: 04856728 CPT-4: G0009 04/08/2016 PNEUMOCOCCAL VACC [address]: 37081011 CPT-4: 41438 04/08/2016 FLU VACC PRSV FREE I NC ANTIG CPT-4: 16187 04/08/2016 Vital Signs Date Vital 02/23/2019 Blood Pressure 1: 120/60 Code: 8480-6 BMI: 41.2 Code: 15306-0 Heart Rate 1: 80 bpm Height: 5'7" SpO2: 95% Weight: 263 lbs 02/14/2019 Blood Pressure 1: 110/60 Code: 8480-6 BMI: 41.0 Code: 22695-3 Heart Rate 1: 81 bpm Height: 5'7" SpO2: 91% Weight: 262 lbs 01/31/2019 Blood Pressure 1: 120/56 Code: 8480-6 Heart Rate 1: 85 bpm Height: 5'7" SpO2: 96% Weight: 01/12/2019 Blood Pressure 1: 128/68 Code: 8480-6 BMI: 41.2 Code: 13848-4 Heart Rate 1: 82 bpm Height: 5'7" SpO2: 92% Weight: 263 lbs 12/06/2018 Blood Pressure 1: 118/70 Code: 8480-6 BMI: 41.5 Code: 87790-7 Heart Rate 1: 97 bpm Height: 5'7" SpO2: 96% Weight: 265 lbs 11/15/2018 Blood Pressure 1: 144/76 Code: 8480-6 BMI: 42.3 Code: 69409-2 Heart Rate 1: 82 bpm Height: 5'7" SpO2: 96% Weight: 270 lbs 10/25/2018 Blood Pressure 1: 128/80 Code: 8480-6 BMI: 42.0 Code: 82744-8 Heart Rate 1: 93 bpm Height: 5'7" SpO2: 95% Weight: 268 lbs 10/13/2018 Blood Pressure 1: 162/76 Code: 8480-6 BMI: 42.0 Code: 34750-7 Heart Rate 1: 71 bpm Height: 5'7" SpO2: 96% Weight: 268 lbs 09/15/2018 Blood Pressure 1: 154/86 Code: 8480-6 BMI: 42.9 Code: 62050-1 Heart Rate 1: 88 bpm Height: 5'7" SpO2: 94% Weight: 274 lbs 08/15/2018 Blood Pressure 1: 140/90 Code: 8480-6 BMI: 40.7 Code: 65742-7 Heart Rate 1: 70 bpm Height: 5'7" SpO2: 93% Weight: 260 lbs 08/01/2018 Blood Pressure 1: 130/70 Code: 8480-6 BMI: 40.7 Code: 65160-1 Heart Rate 1: 80 bpm Height: 5'7" SpO2: 93% Weight: 260 lbs 04/20/2018 Blood Pressure 1: 128/68 Code: 8480-6 BMI: 41.7 Code: 28528-4 Heart Rate 1: 85 bpm Height: 5'7" SpO2: 94% Weight: 266 lbs 02/09/2018 Blood Pressure 1: 118/70 Code: 8480-6 BMI: 42.1 Code: 24456-9 Heart Rate 1: 58 bpm Height: 5'7" SpO2: 94% Weight: 269 lbs 12/16/2017 Blood Pressure 1: 132/86 Code: 8480-6 BMI: 42.7 Code: 52897-8 Heart Rate 1: 63 bpm Height: 5'7" SpO2: 94% Weight: 272 lbs 14 o z 08/23/2017 Blood Pressure 1: 150/82 Code: 8480-6 BMI: 42.0 Code: 48476-3 Heart Rate 1: 66 bpm Height: 5'7" SpO2: 96% Weight: 268 lbs 02/03/2017 Blood Pressure 1: 138/72 Code: 8480-6 BMI: 41.2 Code: 82880-1 Heart Rate 1: 96 bpm Height: 5'7" SpO2: 97% Weight: 263 lbs 02/02/2017 Blood Pressure 1: 140/90 Code: 8480-6 BMI: 41.2 Code: 58532-3 Heart Rate 1: 103 bpm Height: 5'7" SpO2: 94% Weight: 263 lbs 11/26/2016 Blood Pressure 1: 152/88 Code: 8480-6 BMI: 41.0 Code: 35531-0 Heart Rate 1: 71 bpm Height: 5'7" SpO2: 94% Temperature: 37.7 (C ) / 99.8 (F) Weight: 262 lbs 10/07/2016 Blood Pressure 1: 148/82 Code: 8480-6 BMI: 41.7 Code: 75240-0 Heart Rate 1: 58 bpm Height: 5'7" SpO2: 96% Weight: 266 lbs 09/16/2016 Blood Pressure 1: 122/70 Code: 8480-6 BMI: 42.0 Code: 28229-9 Heart Rate 1: 65 bpm Height: 5'7" SpO2: 96% Weight: 268 lbs 09/07/2016 Blood Pressure 1: 154/60 Code: 8480-6 BMI: 42.3 Code: 30434-0 Heart Rate 1: 101 bpm Height: 5'7" SpO2: 97% Weight: 270 lbs 04/08/2016 Blood Pressure 1: 128/70 Code: 8480-6 BMI: 41.4 Code: 10468-7 Heart Rate 1: 62 bpm Height: 5'7" SpO2: 95% Weight: 264 lbs 8 oz 03/05/2016 Blood Pressure 1: 144/78 Code: 8480-6 Blood Pressure 1: 139/72 Code: 8480-6 BMI: 41.9 Code: 79839-5 Heart Rate 1: 71 bpm Height: 5'7" SpO2: 93% Weight: 267 lbs 8 oz 12/04/2015 Blood Pressure 1: 132/70 Code: 8480-6 BMI: 41.3 Code: 95715-6 Heart Rate 1: 56 bpm Height: 5'7" SpO2: 96% Weight: 264 lbs 11/18/2015 Blood Pressure 1: 138/72 Code: 8480-6 BMI: 41.0 Code: 15224-7 Heart Rate 1: 85 bpm Height: 5'7" SpO2: 93% Weight: 262 lbs 09/30/2015 Blood Pressure 1: 128/76 Code: 8480-6 BMI: 41.2 Code: 91916-2 Heart Rate 1: 70 bpm Height: 5'7" SpO2: 93% Weight: 263 lbs 09/09/2015 Blood Pressure 1: 138/80 Code: 8480-6 BMI: 40.3 Code: 10036-8 Heart Rate 1: 84 bpm Height: 5'7" SpO2: 95% Weight: 257 lbs 08/28/2015 Blood Pressure 1: 122/72 Code: 8480-6 BMI: 39.6 Code: 31180-4 Heart Rate 1: 75 bpm Height: 5'7" SpO2: 96% Weight: 253 lbs 07/09/2015 Blood Pressure 1: 140/78 Code: 8480-6 Blood Pressure 1: 135/78 Code: 8480-6 BMI: 39.5 Code: 62665-3 Heart Rate 1: 62 bpm Height: 5'7" SpO2: 95% Weight: 252 lbs 03/06/2015 Blood Pressure 1: 142/88 Code: 8480-6 BMI: 39.3 Code: 03228-8 Heart Rate 1: 65 bpm Height: 5'7" [...] Encounters Encounter Performer Loca tion Codes Date ([id number]) 57408 EST. P ATIENT, LEVEL III Diagnosis: Urinary tract infection, site not specified[ICD10: N39.0] Diagnosis: Localized edema[ICD10: R60.0] [facility] CPT- 4: 45765 02/23/2019 ([id number]) 51127 EST. P ATIENT, LEVEL III Diagnosis: Localized edema[ICD10: R60.0] Diagnosis: Lumbago with sciatica, right side[ICD10: M54.41] [facility] CPT-4: 65302 02/14/2019 08063 EST. PATIENT, LEVEL IV Diagnosis: Lumbago with sciatica, right side[ICD10: M54.41] Diagnosis: Dysuria[ICD10: R30.0] Diagnosis: Paroxysmal atrial fibrillation[ICD10: I48.0] Alis Spring MD, [facility] CPT-4: 31486 01/31/2019 ([id number]) 60726 EST. P ATIENT, LEVEL IV Diagnosis: Essential (primary) hypertension[ICD10: I10] Diagnosis: Chronic atrial fibrillation[ICD10: I48.2] Diagnosis: Localized edema[ICD10: R60.0] Diagnosis: Dysuria[ICD10: R30.0] Diagnosis: Low back pain[ICD10: M54.5] Diagnosis: Vitamin D deficiency, unspecified[ICD10: E55.9] Alis Spring MD, [facility] CPT-4: 34918 01/12/2019 ([id number]) 13131 EST. P ATIENT, LEVEL IV Diagnosis: Localized edema[ICD10: R60.0] Diagnosis: Dysuria[ICD10: R30.0] Diagnosis: Cellulitis of abdominal wall[ICD10: L03.311] Alis Spring MD, [facility] CPT-4: 52692 12/06/2018 ([id number]) 04653 EST. P ATIENT, LEVEL III Diagnosis: Dysuria[ICD10: R30.0] Diagnosis: Essential (primary) hypertension[ICD10: I10] Diagnosis: Major depressive disorder, recurrent, moderate[ICD10: F33.1] Alis Spring MD, [facility] CPT-4: 53822 11/15/2018 ([id number]) 97954 EST. P ATIENT, LEVEL IV Diagnosis: Eructation[ICD10: R14.2] Diagnosis: Nausea[ICD10: R11.0] Diagnosis: Chest pain, unspecified[ICD10: R07.9] Diagnosis: Diarrhea, unspecified[ICD10: R19.7] Alis Spring MD, [facility] CPT-4: 03396 10/25/2018 ([id number]) 56307 EST. P ATIENT, LEVEL IV Diagnosis: Essential (primary) hypertension[ICD10: I10] Diagnosis: Low back pain[ICD10: M54.5] Diagnosis: Major depressive disorder, recurrent, moderate[ICD10: F33.1] Alis Spring MD, [facility] CPT-4: 95251 10/13/2018 ([id number]) 54470 EST. P ATIENT, LEVEL IV Diagnosis: Essential (primary) hypertension[ICD10: I10] Diagnosis: Dysuria[ICD10: R30.0] Diagnosis: Low back pain[ICD10: M54.5] Alis Spring MD, [facility] CPT- 4: 86600 09/15/2018 ([id number]) 38795 EST. P ATIENT, LEVEL III Diagnosis: Essential (primary) hypertension[ICD10: I10] Diagnosis: Low back pain[ICD10: M54.5] Alis Spring MD, [facility] CPT- 4: 60494 08/15/2018 ([id number]) 66478 EST. P ATIENT, LEVEL III Diagnosis: Essential (primary) hypertension[ICD10: I10] Diagnosis: Cough[ICD10: R05] Diagnosis: Low back pain[ICD10: M54.5] Alis Spring MD, [facility] CPT- 4: 76265 08/01/2018 ([id number]) 31429 EST. P ATIENT, LEVEL IV Diagnosis: Encounter for immunization[ICD10: Z23] Diagnosis: Essential (primary) hypertension[ICD10: I10] Diagnosis: Chronic atrial fibrillation[ICD10: I48.2] Diagnosis: Major depressive disorder, recurrent, mild[ICD10: F33.0] Scarlett [facility] CPT-4: 41605 04/20/2018 ([id number]) 78463 EST. P ATIENT, LEVEL IV Diagnosis: Essential (primary) hypertension[ICD10: I10] Diagnosis: Obstructive sleep apnea (adult) (pediatric)[ICD10: G47.33] Diagnosis: Chronic atrial fibrillation[ICD10: I48.2] [facility] CPT-4: 93675 12/16/2017 ([id number]) 88881 EST. P ATIENT, LEVEL IV Diagnosis: Essential (primary) hypertension[ICD10: I10] Diagnosis: Chronic atrial fibrillation[ICD10: I48.2] Scarlett Spring MD, [facility] CPT-4: 80619 08/23/2017 ([id number]) 14710 EST. P ATIENT, LEVEL IV Diagnosis: Paroxysmal atrial fibrillation[ICD10: I48.0] Diagnosis: Essential (primary) hypertension[ICD10: I10] Scarlett Spring MD, [facility] CPT-4: 51219 02/02/2017 14714 EST. PATIENT, LEVEL III Diagnosis: Acute laryngopharyngitis[ICD10: J06.0] Diagnosis: Cough[ICD10: R05] Diagnosis: Pleurodynia[ICD10: R07.81] Diagnosis: Other dorsalgia[ICD10: M54.89] Kassandra Spring MD, [facility] CPT-4: 70264 11/26/2016 ([id number]) 91584 EST. P ATIENT, LEVEL IV Diagnosis: Essential (primary) hypertension[ICD10: I10] Diagnosis: Pain in left knee[ICD10: M25.562] Diagnosis: Low back pain[ICD10: M54.5] Diagnosis: Major depressive disorder, recurrent, moderate[ICD10: F33.1] Scarlett Spring MD, [facility] CPT-4: 43422 10/07/2016 ([id number]) 84114 EST. P ATIENT, LEVEL IV Diagnosis: Essential (primary) hypertension[ICD10: I10] Diagnosis: Rash and other nonspecific skin eruption[ICD10: R21] Diagnosis: Major depressive disorder, recurrent, mild[ICD10: F33.0] Scarlett Spring MD, [facility] CPT-4: 53257 09/16/2016 02092 EST. PATIENT, LEVEL IV Diagnosis: Pain in left lower leg[ICD10: M79.662] Diagnosis: Pain in left knee[ICD10: M25.562] Kassandra Spring MD, [facility] CPT-4: 31708 09/07/2016 ([id number]) 62841 EST. P ATIENT, LEVEL IV Diagnosis: Encounter for immunization[ICD10: Z23] Diagnosis: Essential (primary) hypertension[ICD10: I10] Diagnosis: Mixed hyperlipidemia[ICD10: E78.2] Scarlett Spring MD, [facility] CPT- 4: 29026 04/08/2016 ([id number]) 34347 EST. P ATIENT, LEVEL III Diagnosis: Essential (primary) hypertension[ICD10: I10] Diagnosis: Shortness of breath[ICD10: R06.02] Scarlett Spring MD, [facility] CPT- 4: 21726 03/05/2016 ([id number]) 09506 EST. P ATIENT, LEVEL III Diagnosis: Chronic obstructive pulmonary disease, unspecified[ICD10: J44.9] Scarltet Spring MD, [facility] CPT-4: 30592 12/04/2015 ([id number]) 53147 EST. P ATIENT, LEVEL IV Diagnosis: Essential (primary) hypertension[ICD10: I10] Diagnosis: Allergic rhinitis due to pollen[ICD10: J30.1] Scarlett Spring MD, [facility] CPT-4: 14886 11/18/2015 ([id number]) 09731 EST. P ATIENT, LEVEL IV Diagnosis: Localized edema[ICD10: R60.0] Diagnosis: Dysuria[ICD10: R30.0] Diagnosis: Essential (primary) hypertension[ICD10: I10] Diagnosis: Nausea[ICD10: R11.0] Alis Spring MD, [facility] CPT-4: 34546 09/30/2015 ([id number]) 17985 EST. P ATIENT, LEVEL II Diagnosis: Methicillin susceptible Staphylococcus aureus infection as the cause of diseases classified elsewhere[ICD10: B95.61] Diagnosis: Methicillin susceptible Staphylococcus aureus infection, unspecified site[ICD10: A49.01] Alis Spring MD, [facility] CPT-4: 60327 09/09/2015 ([id number]) 16812 EST. P ATIENT, LEVEL III Diagnosis: Dermatophytosis, unspecified[ICD10: B35.9] Diagnosis: Rash and other nonspecific skin eruption[ICD10: R21] Scarlett [facility] CPT-4: 70176 08/28/2015 ([id number]) 39491 EST. P ATIENT, LEVEL IV Diagnosis: Essential (primary) hypertension[ICD10: I10] Diagnosis: Gastro-esophageal reflux disease without esophagitis[ICD10: K21.9] Diagnosis: Other dorsalgia[ICD10: M54.89] [facility] CPT-4: 46846 07/09/2015 ([id number]) [facility] [place] - LEVEL 4 Diagnosis: ESSENTIAL HYPERTENSION[ICD9: 401.9] Diagnosis: Osteoporosis[ICD9: 733.00] Diagnosis: Back pain[ICD9: 724.5] Diagnosis: Insomnia[ICD9: 780.52] Diagnosis: ESOPHAGEAL REFLUX[ICD9: 530.81] [facility] CPT-4: 45011 03/06/2015 Plan of Care Planned Activity Notes [...] peripheral edema. 02/23/2019 Appointment: Alis Muhammad WPtel: [facility] [phone] (30 min) Complex 02/23/2019 Patient Education: Patient [...] current dose 02/14/2019 Appointment: Alis Muhammad WPtel: [facility] [phone] (15 min) Moderate 02/14/2019 Patient Education: Patient [...] becoming uncontrolled. 01/31/2019 Appointment: Alis Muhammad WPtel: [address] [place], [place] [phone] (30 min) Complex 01/31/2019 Patient Education: Patient Medication Summary Completed 01/31/2019 Care Plan: Urine Culture Pending 01/31/2019 Care Plan: Referral Order SNOMED-CT : [id number] Pending 01/31/2019 Visit Plan: Hypertension - well [...] labs today 01/12/2019 Appointment: Alis Muhammad WPtel: [address] [place] [phone] (30 min) Complex 01/12/2019 Patient Education: Patient Medication Summary Completed 01/12/2019 Patient Education: Back Pain Completed 01/12/2019 Appointment: lAis Muhammad WPtel: [address] [place], [place] [phone] (30 min) Complex 12/13/2018 Visit Plan: Edema [...] warmth, discharge. 12/06/2018 Appointment: Alis Muhammad WPtel: [address] [place] [address] (30 min) Complex 12/06/2018 Patient Education: Patient [...] as indicated 11/15/2018 Appointment: Alis Muhammad WPtel: [facility] (15 min) Moderate 11/15/2018 Patient Education: [...] in ER 10/25/2018 Appointment: Alis Muhammad WPtel: [facility]1 [phone] (15 min) Moderate 10/25/2018 Patient [...] current treatment 10/13/2018 Appointment: Alis Muhammad WPtel: [phone] [phone] (15 min) Moderate 10/13/2018 Patient Education: Patient [...] Dysuria-check Ua 09/15/2018 Appointment: Alis Muhammad WPtel: [facility]5 [phone] (30 min) Complex 09/15/2018 Patient [...] not improve 08/15/2018 Appointment: Alis Muhammad WPtel: [facility]5 [phone] (30 min) Complex 08/15/2018 Patient Education: Patient Medication Summary Completed 08/15/2018 Patient Education: Back Pain Completed 08/15/2018 Visit Plan: HTN-onofre induced cough-s top lisinopril -start losartan -monitor blood pressure and follow up in 2 weeks Low back pain-xray lumbar spine and refer for PT 08/01/2018 Appointment: Alsi Muhammad WPtel: [phone] [phone] (15 min) Moderate 08/01/2018 Patient Education: Patient Medication Summary Completed 08/01/2018 Patient Education: Back Pain Completed 08/01/2018 Care Plan: X-RAY EXAM L-S SPINE 08/28 VWS LOINC : 23121-5 Pending 08/01/2018 Visit Plan: Hypertension - well [...] today. 04/20/2018 Appointment[phone] [facility] (15 min) Moderate 04/20/2018 Patient Education: Patient [...] care surrogate. 02/09/2018 Appointment: Kassandra Argueta WPtel: [address] [place], [place] [address] [facility] - Annual Wellness Visit 02/09/2018 Patient [...] every night. 12/16/2017 Appointment: Scarlett Spring WPtel: [facility]3 [facility] (15 min) Moderate 12/16/2017 Patient [...] becoming uncontrolled. 08/23/2017 Appointment: Scarlett Spring WPtel: [facility]8 [facility] (15 min) Moderate 08/23/2017 Patient Education: Patient [...] to cardiology 02/03/2017 Appointment: Kassandra Argueta WPtel: [facility]0 [facility] [facility] - Annual Wellness Visit 02/03/2017 Patient [...] at home. 02/02/2017 Appointment: Scarlett Spring WPtel: [facility]5 [facility] (15 min) Moderate 02/02/2017 Patient [...] not improve. 11/26/2016 Appointment: Kassandra Argueta WPtel: [facility] [place] (30 min) Complex 11/26/2016 Patient Education: Patient [...] pain symptoms. 10/07/2016 Appointment: Scarlett Spring WPtel: [facility]5 [facility] [place] (15 min) Moderate 10/07/2016 Patient Education: Patient Medication Summary Completed 10/07/2016 Patient Education: Obesity Completed 10/07/2016 Patient Education: Hypertension Completed 10/07/2016 Care Plan: VASCULAR STUDY Pending 10/04/2016 Care Plan: X-RAY EXAM OF KNEE 3 LOINC : 31721-2 Pending 10/04/2016 Visit Plan: Hypertension - well [...] paroxetine 09/16/2016 Appointment: Scarlett Spring WPtel: [phone] [facility] [place] (15 min) Moderate 09/16/2016 Patient [...] not improve. 09/07/2016 Appointment: Kassandra Argueta WPtel: [phone] [facility] [place] [place] (10 min) Simple 09/07/2016 Patient Education: [...] mammogram order 04/08/2016 Appointment: Scarlett Spring WPtel: [phone] [facility] (15 min) Moderate 04/08/2016 Patient Education: Patient [...] days. 03/05/2016 Appointment: Scarlett Spring WPtel[facility] [phone] [facility] (15 min) Moderate 03/05/2016 Patient Education: Patient Medication Summary Completed 03/05/2016 Visit Plan: COPD - chronic problem for this patient. We have reviewed chronic treatment strategy, symptom control, and plans for acute exacerbations. No changes today to the current treatment plan as the patient is stable, monitor for acute changes. anoro samples given to the patient 12/04/2015 Appointment: Scarlett Spring WPtel[facility] [phone] [facility] (15 min) Moderate 12/04/2015 Patient [...] allergy spray. 11/18/2015 Appointment: Scarlett Spring WPtel: [phone] [facility] (15 min) Moderate 11/18/2015 Patient Education: Patient Medication Summary Completed 11/18/2015 Patient Education: Obesity Completed 11/18/2015 Patient Education: Hypertension Completed 11/18/2015 Appointment: Scarlett Spring WPtel: [phone] [facility] (15 min) Moderate 11/07/2015 Visit [...] Visit Plan: MSSA of groin and under [id number]-[id number] bactrim and call if rash does not [...] report. 08/28/2015 Appointment: Scarlett Spring WPtel: [phone] [facility] (15 min) Moderate 08/28/2015 Patient Education: [...] improving. 07/09/2015 Appointment: Scarlett Spring WPtel: [phone] [facility] (15 min) Moderate 07/09/2015 Patient Education: [...] not improving. 03/06/2015 Appointment: Scarlett Spring WPtel: [facility] [place] ([place] New Patient 03/06/2015 Patient Education: Patient Medication Summary Completed 03/06/2015 Patient Education: Hypertension Completed 03/06/2015 Referral: Dr Ewing Referral Appointment Requested Instructions Comment STOP BACTRIM START CIPRO 500MG TWICE DAILY [...] [facility] check UA start probiotic daily . Hypertension [...] to the patient . Left knee pain, le ft calf [...] to Ortho if symptoms do not improve take two of the metr oprolol succinate [...] change in blood pressure readings at home. XRAY LUMBAR SPINE CHECK LABS UA TODAY [...]
--- OUTSIDE RECORDS SUMMARY | 2020-01-23 14:03 | XMS REPORT | CCD ---
Author Author Jeannine Spring Organization Scarlett Spring MD, [facility] Address [address] [place] [address] Phone Care Team Providers Care Travel Services Professional Name Role Phone PP Unavailable CCM Unavailable Summary Purpose Interface Exchange Insurance Providers Payer name Policy type / Coverage type Covered democrat ID Effective Begin Date Effective End Date WPS Medicare Part B Medicare Part B [id number] Unknown [facility] [place] Medicare Part B [id number] Unkn own Family history Mother Diagnosis Age At Onset Hypertension Unknown Heart Attack Unknown Brother Diagnosis Age At Onset Heart disease Unknown Runs in the family Diagnosis Age At Onset Heart disease Unknown Daughter Diagnosis Age At Onset Heart Attack Unknown Hyperlipidemia Unknown Hypertension Unknown Social History Social History Element Codes Description Effective Dates Number of children Unknown 2 daughter lives in [place], son - does not have contact 09/16/[address]: 6945855 Quit over 10 years ago 1990 - previously smoked 2ppd x 25 years. 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 Allergies, Adverse Reactions, Alerts Substance Reaction [...] E R 10 mEq tablet,extended release RxNorm: 260787 2 Tablet(s) PO daily 02/23/2019 06/22/2019 Active 3 daily x 5 days then 2 jignesh y thereafter Lasix 20 mg tablet RxNorm: 001840 2 Tablet(s) PO daily 02/23/2019 06/22/2019 Active take 3 daily x 5 days then 2 tab daily t herafter Cipro 500 mg tablet RxNorm: 497101 1 Tablet(s) PO BID 02/23/2019 03/01/2019 Active doxycycline hyclate 100 mg tablet,delayed release RxNorm: 559737 1 Tablet(s) PO BID 02/03/2019 02/02/2019 In active doxycycline hyclate 100 mg tablet,delayed release RxNorm: 775436 1 Tablet(s) PO BID an d probiotic bid 02/03/2019 02/09/2019 Inactive may use capsule if cheaper gabapentin 100 mg ca psule RxNorm: 939956 1 Capsule(s) PO TID 01/31/2019 04/30/2019 Active Ambien 10 mg tablet RxNorm: 238699 Tablet(s) TAKE ONE TABLET BY MOUTH AT BE DTIME NEEDED 01/20/2019 05/19/2019 Active Vitamin D2 50,000 un it capsule RxNorm: 0576429 1 Capsule(s) PO QW 01/18/2019 03/18/2019 Active Ambien 10 mg tablet RxNorm: 748251 Tablet(s) TAKE ONE TABLET BY MOUTH AT BE DTIME NEEDED 12/21/2018 04/18/2019 Active mupirocin 2 % topica l ointment RxNorm: 042412 1 Application TOP BID 12/06/2018 12/19/2018 Inactive doxycycline hyclate 100 mg tablet RxNorm: 0434362 1 Tablet(s) PO BID 11/21/2018 11/27/2018 Inactive can exchange for capsule if cheaper doxycycline hyclate 100 mg tablet RxNorm: 3784170 1 Tablet(s) PO BID 11/21/2018 11/20/2018 Inactive simethicone 125 mg c hewable tablet RxNorm: 151436 1 Tablet(s) PO qid pr n 10/25/2018 No Stop Date Active promethazine 25 mg t ablet RxNorm: 206161 1 Tablet(s) PO Q6 PRN 10/25/2018 No Stop Date Active paroxetine 40 mg tablet RxNorm: 0619507 1 Tablet(s) PO daily 10/13/2018 04/10/2019 Active valsartan 160 mg tablet RxNorm: 296829 1 Tablet(s) PO daily 10/13/2018 04/10/2019 Active terazosin 5 mg capsule RxNorm: 653871 TAKE ONE CAPSULE BY MOUTH DAILY 09/23/2018 02/19/2019 In active trazodone 50 mg tablet RxNorm: 651306 TAKE ONE TABLET BY MOUTH DAILY 09/23/2018 03/21/2019 Ac tive Ambien 10 mg tablet RxNorm: 884779 TAKE ONE TABLET BY MOUTH AT BEDTIME N EEDED 09/23/2018 11/20/2018 Inactive losartan 50 mg tablet RxNorm: 931817 1 Tablet(s) PO daily 09/15/2018 10/12/2018 Inactive omeprazole 20 mg cap marina,delayed release RxNorm: 835972 TAKE ONE CAPSULE BY M OUTH EVERY NIGHT AT BEDTIME 09/12/2018 03/10/2019 Active Keflex 500 mg capsule RxNorm: 963841 1 Capsule(s) PO TID 08/18/2018 08/17/2018 Inactive Keflex 500 mg capsule RxNorm: 589305 1 Capsule(s) PO TID 08/18/2018 08/24/2018 Inactive take probiotic while on abx paroxetine 20 mg tablet RxNorm: 8360410 TAKE ONE TABLET BY MOUTH DAILY 08/12/2018 10/12/2018 In active losartan 25 mg tablet RxNorm: 988292 1 Tablet(s) PO daily 08/01/2018 09/14/2018 Inactive losartan 25 mg tablet RxNorm: 572486 1 Tablet(s) PO daily 08/01/2018 10/12/2018 Inactive trazodone 50 mg tablet RxNorm: 283673 TAKE ONE TABLET BY MOUTH DAILY 07/25/2018 09/22/2018 In active Ambien 10 mg tablet RxNorm: 978851 Tablet(s) TAKE ONE TABLET BY MOUTH AT BE DTIME 06/24/2018 09/23/2018 Inactive trazodone 50 mg tablet RxNorm: 023011 TAKE ONE TABLET BY MOUTH DAILY 04/25/2018 07/23/2018 In active Ambien 10 mg tablet RxNorm: 799154 Tablet(s) TAKE ONE TABLET BY MOUTH AT BE DTIME 03/23/2018 06/19/2018 Inactive terazosin 5 mg capsule RxNorm: 730932 TAKE ONE CAPSULE BY MOUTH DAILY 03/14/2018 09/09/2018 In active Ambien 10 mg tablet RxNorm: 338071 Tablet(s) TAKE ONE TABLET BY MOUTH AT BE DTIME 01/18/2018 09/14/2018 Inactive trazodone 50 mg tablet RxNorm: 497833 TAKE ONE TABLET BY MOUTH ONCE DAILY 01/10/2018 03/22/2018 In active trazodone 50 mg tablet RxNorm: 281068 Tablet(s) TAKE ONE TABLET BY MOUTH ONCE DAILY 01/10/2018 04/24/2018 Inactive Ambien 10 mg tablet RxNorm: 911897 Tablet(s) TAKE ONE TABLET BY MOUTH AT BE DTIME 10/22/2017 01/17/2018 Inactive trazodone 50 mg tablet RxNorm: 540846 TAKE ONE TABLET BY MOUTH ONCE DAILY 10/18/2017 01/09/2018 In active omeprazole 20 mg cap marina,delayed release RxNorm: 358492 TAKE ONE CAPSULE BY M OUTH ONCE DAILY AT BEDTIME 08/27/2017 09/11/2018 Inactive trazodone 50 mg tablet RxNorm: 241283 TAKE ONE TABLET BY MOUTH ONCE DAILY 08/18/2017 10/17/2017 In active Ambien 10 mg tablet RxNorm: 863840 Tablet(s) TAKE ONE TABLET BY MOUTH AT BE DTIME 08/18/2017 03/22/2018 Inactive paroxetine 20 mg tablet RxNorm: 0226658 TAKE ONE TABLET BY MOUTH ONCE DAILY 07/27/2017 08/11/2018 In active Ambien 10 mg tablet RxNorm: 526357 Tablet(s) TAKE ONE TABLET BY MOUTH AT BE DTIUT 06/23/2017 03/22/2018 Inactive omeprazole 20 mg cap marina,delayed release RxNorm: 679364 TAKE ONE CAPSULE BY M OUTH ONCE DAILY AT BEDTIME 04/23/2017 08/20/2017 Inactive trazodone 50 mg tablet RxNorm: 977673 TAKE ONE TABLET BY MOUTH ONCE DAILY 04/13/2017 08/10/2017 In active terazosin 5 mg capsule RxNorm: 588223 Capsule(s) TAKE ONE CAPSULE BY MOUTH [facility] 04/08/2017 03/03/2018 In active Ambien 10 mg tablet RxNorm: 191766 Tablet(s) TAKE ONE TABLET BY MOUTH AT BE DTIUT 02/17/2017 03/22/2018 Inactive Tylenol-Codeine #3 3 00 mg-30 mg tablet RxNorm: 092029 1 Tablet(s) PO QID as needed 02/02/2017 11/14/2018 In active metoprolol succinate ER 50 mg tablet,extended release 24 hr RxNorm: 952309 TAKE ONE TABLET BY MOUTH ONCE DAILY 12/23/2016 02/02/2017 Inactive Zithromax Z-Ted 250 mg tablet RxNorm: 042634 1 Tablet(s) PO UD 11/26/2016 02/16/2017 Inactive trazodone 50 mg tablet RxNorm: 398704 TAKE ONE TABLET BY MOUTH ONCE DAILY 11/12/2016 03/11/2017 In active Ambien 10 mg tablet RxNorm: 700658 Tablet(s) TAKE ONE TABLET BY MOUTH AT BE DTIUT 10/22/2016 02/15/2017 Inactive paroxetine 20 mg tablet RxNorm: 0261348 1 Tablet(s) PO daily TAKE ONE TABLET BY MOUTH DAILY 09/16/2016 06/12/2017 Inactive meloxicam 7.5 mg tablet RxNorm: 065785 1 Tablet(s) PO daily 09/16/2016 11/14/2016 Inactive Protonix 40 mg table t,delayed release RxNorm: 767496 1 Tablet(s) PO daily 09/16/2016 08/22/2017 In active sucralfate 1 gram ta blet RxNorm: 131677 1 Tablet(s) PO TID 09/16/2016 08/22/2017 Inactive Ambien 10 mg tablet RxNorm: 014583 Tablet(s) TAKE ONE TABLET BY MOUTH AT BE DTIME 08/24/2016 03/22/2018 Inactive trazodone 50 mg tablet RxNorm: 791394 Tablet(s) TAKE ONE TABLET BY MOUTH DAILY 07/29/2016 11/11/2016 In active Ambien 10 mg tablet RxNorm: 213048 TAKE ONE TABLET BY MOUTH AT BEDTIME 06/23/2016 03/22/2018 In active Ambien 10 mg tablet RxNorm: 335733 Tablet(s) TAKE ONE TABLET BY MOUTH EVERY NIGHT AT BEDTIME 06/22/2016 06/23/2016 Inactive Lasix 40 mg tablet RxNorm: 888598 1 Tablet(s) PO daily as needed for swell ing 04/03/2016 09/15/2016 In active potassium chloride E R 20 mEq tablet,extended release RxNorm: 366779 1 Tablet(s) PO daily for swelling take with lasix as needed 04/03/2016 09/15/2016 Inactive Ambien 10 mg tablet RxNorm: 423843 Tablet(s) TAKE ONE TABLET BY MOUTH EVERY NIGHT AT BEDTIME 04/03/2016 03/22/2018 Inactive omeprazole 20 mg cap marina,delayed release RxNorm: 547372 TAKE ONE CAPSULE BY M OUTH EVERY NIGHT AT BEDTIME 03/31/2016 09/15/2016 Inactive paroxetine 20 mg tablet RxNorm: 2633007 TAKE ONE TABLET BY MOUTH DAILY 03/31/2016 09/15/2016 In active trazodone 50 mg tablet RxNorm: 080792 TAKE ONE TABLET BY MOUTH DAILY 03/20/2016 07/28/2016 In active terazosin 5 mg capsule RxNorm: 999193 TAKE ONE CAPSULE BY MOUTH DAILY 03/06/2016 10/06/2016 In active Ambien 10 mg tablet RxNorm: 288388 Tablet(s) TAKE ONE TABLET BY MOUTH EVERY NIGHT AT BEDTIME 01/17/2016 04/02/2016 Inactive loratadine 10 mg tablet RxNorm: 455645 1 Tablet(s) PO daily 01/15/2016 09/15/2016 Inactive mupirocin 2 % topica l ointment RxNorm: 209408 1 Application TOP TID 11/18/2015 12/01/2015 Inactive metoprolol succinate ER 50 mg tablet,extended release 24 hr RxNorm: 531395 1 Tablet(s) PO daily 11/18/2015 11/11/2016 Inactive loratadine 10 mg tablet RxNorm: 576182 1 Tablet(s) PO daily 11/18/2015 01/14/2016 Inactive Lasix 40 mg tablet RxNorm: 684552 1 Tablet(s) PO daily as needed for swell ing 10/30/2015 11/28/2015 In active potassium chloride E R 20 mEq tablet,extended release RxNorm: 443584 1 Tablet(s) PO daily for swelling take with lasix as needed 10/30/2015 11/28/2015 Inactive Tylenol-Codeine #3 3 00 mg-30 mg tablet RxNorm: 974777 1 Tablet(s) PO QID as needed 10/25/2015 02/01/2017 In active Ambien 10 mg tablet RxNorm: 650204 Tablet(s) TAKE ONE TABLET BY MOUTH EVERY NIGHT AT BEDTIME 10/18/2015 03/22/2018 Inactive Diflucan 150 mg tablet RxNorm: 480674 1 Tablet(s) PO daily 10/01/2015 12/03/2015 Inactive Lasix 20 mg tablet RxNorm: 594279 1 Tablet(s) PO PRN fror swelling 09/27/2015 10/29/2015 In active potassium chloride E R 10 mEq capsule,extended release RxNorm: 936839 1 Capsule(s) PO PRN for swelling take with lasix 09/27/2015 10/29/2015 Inactive Bactrim DS 800 mg-16 0 mg tablet RxNorm: 885286 1 Tablet(s) PO BID 09/02/2015 09/11/2015 Inactive Bactrim DS 800 mg-16 0 mg tablet RxNorm: 619691 1 Tablet(s) PO BID 09/02/2015 09/01/2015 Inactive nystatin 100,000 uni t/gram topical cream RxNorm: 613994 1 Gram(s) TOP TID 08/28/2015 09/26/2015 In active Diflucan 150 mg tablet RxNorm: 472019 1 Tablet(s) PO daily 08/28/2015 09/06/2015 Inactive betamethasone diprop ionate 0.05 % topical ointment RxNorm: 773603 1 Application TOP TID to affected area 08/02/2015 02/01/2017 Inactive nystatin 100,000 uni t/gram topical powder RxNorm: 167351 1 Gram(s) TOP QID 07/09/2015 08/01/2015 In active Ambien 10 mg tablet RxNorm: 291483 1 Tablet(s) PO QHS 06/19/2015 06/18/2015 Inactive Ambien 10 mg tablet RxNorm: 200622 TAKE ONE TABLET BY MOUTH EVERY NIGHT AT BEDTIME 06/19/2015 09/16/2015 Inactive Vitamin D2 50,000 un it capsule RxNorm: 302698 1 Capsule(s) PO QW 03/07/2015 03/06/2015 Inactive Vitamin D2 50,000 un it capsule RxNorm: 4481727 1 Capsule(s) PO QW 03/07/2015 05/05/2015 Inactive terazosin 5 mg capsule RxNorm: 022649 1 Capsule(s) PO daily 03/06/2015 02/28/2016 Inactive [SAVINGS FOR NON-COVERED DRUGS -- BIN:00 3585, PCN: [id number], Group: XXXXX, ID# [id number], Questions: . THIS IS NOT INSURANCE.] trazodone 50 mg tablet RxNorm: 828262 1 Tablet(s) PO daily 03/06/2015 02/28/2016 Inactive paroxetine 20 mg tablet RxNorm: 9081209 1 Tablet(s) PO daily 03/06/2015 02/28/2016 Inactive Tylenol-Codeine #3 3 00 mg-30 mg tablet RxNorm: 462178 1 Tablet(s) PO QID as needed 03/06/2015 07/02/2015 In active amlodipine 10 mg tablet RxNorm: 351003 1 Tablet(s) PO daily 03/06/2015 11/17/2015 Inactive metoprolol succinate ER 25 mg tablet,extended release 24 hr RxNorm: 712690 1 Tablet(s) PO daily 03/06/2015 11/17/2015 Inactive omeprazole 20 mg cap marina,delayed release RxNorm: 719395 1 Capsule(s) PO QHS 03/06/2015 02/28/2016 In active omeprazole 20 mg cap marina,delayed release RxNorm: 491723 1 Capsule(s) PO QHS 01/31/2015 01/30/2015 In active omeprazole 20 mg cap marina,delayed release RxNorm: 315465 1 Capsule(s) PO QHS 01/31/2015 01/30/2015 In active omeprazole 20 mg cap marina,delayed release RxNorm: 909088 1 Capsule(s) PO QHS 01/31/2015 03/05/2015 In active Ambien 10 mg tablet RxNorm: 151007 1 Tablet(s) PO QHS 12/25/2014 04/21/2015 Inactive paroxetine 20 mg tablet RxNorm: 044886 1 Tablet(s) PO daily 12/25/2014 12/24/2014 Inactive Ambien 10 mg tablet RxNorm: 014586 1 Tablet(s) PO QHS 12/25/2014 12/24/2014 Inactive paroxetine 20 mg tablet RxNorm: 787629 1 Tablet(s) PO daily 12/25/2014 03/05/2015 Inactive terazosin 5 mg capsule RxNorm: 594159 1 Capsule(s) PO daily 11/23/2014 03/05/2015 Inactive [SAVINGS FOR NON-COVERED DRUGS -- BIN:00 3545, PCN: ASPROD1, Group: XXXXX, ID# [id number], Questions: . THIS IS NOT INSURANCE.] terazosin 5 mg capsule RxNorm: 313332 1 Capsule(s) PO daily 11/23/2014 11/22/2014 Inactive Multaq 400 mg tablet RxNorm: 924703 oral No Start Date Active hydrochlorothiazide 25 mg tablet RxNorm: 682086 1 Tablet(s) PO daily No Start Date Active Vitamin D3 2,000 uni t tablet RxNorm: 045969 1 Tablet(s) PO daily No Start Date Active Zetia 10 mg tablet RxNorm: 567945 1 Tablet(s) PO daily No Start Date Active Lipitor 80 mg tablet RxNorm: 087218 1/2 Tablet(s) PO daily No Start Date Active Coumadin 4 mg tablet RxNorm: 409540 1 Tablet(s) PO daily No Start Date Active Lasix 20 mg tablet RxNorm: 076134 1 Tablet(s) PO daily No Start Date 02/22/2019 Inactive metoprolol succinate ER 25 mg tablet,extended release 24 hr RxNorm: 965570 1 Tablet(s) PO daily No Start Date 03/05/2015 Inactive Entresto 49 mg-51 mg tablet RxNorm: 1232495 1 Tablet(s) PO BID No Start Date 04/19/2018 Inactive K-Dur 10 mEq tablet, extended release RxNorm: 018853 1 Tablet(s) PO daily No Start Date 02/22/2019 Inactive sotalol 80 mg tablet RxNorm: 8479255 1 Tablet(s) PO BID No Start Date 04/19/2018 Inactive betamethasone diprop ionate 0.05 % topical ointment RxNorm: 560818 1 Application TOP TID to affected area No Start Date 08/01/2015 Inactive trazodone 50 mg tablet RxNorm: 328136 1 Tablet(s) PO daily No Start Date 03/05/2015 Inactive potassium chloride E R 10 mEq capsule,extended release RxNorm: 562261 1 Capsule(s) PO PRN for swelling take with lasix No Start Date 09/26/2015 Inactive Eliquis 5 mg tablet RxNorm: 9482540 1 Tablet(s) PO BID No Start Date 09/14/2018 Inactive amiodarone 200 mg ta blet RxNorm: 741235 1 Tablet(s) PO BID No Start Date 01/30/2019 Inactive amlodipine 10 mg tablet RxNorm: 902033 1 Tablet(s) PO daily No Start Date 03/05/2015 Inactive isosorbide mononitra te ER 30 mg tablet,extended release 24 hr RxNorm: 630222 1 Tablet(s) PO daily No Start Date 08/22/2017 Inactive aspirin 81 mg tablet ,delayed release RxNorm: 380645 1 Tablet(s) PO daily No Start Date 02/02/2017 Inactive Lasix 20 mg tablet RxNorm: 343702 1 Tablet(s) PO PRN fror swelling No Start Date 09/26/2015 Inactive lisinopril 5 mg tablet RxNorm: 324382 1 Tablet(s) PO daily No Start Date 07/31/2018 Inactive Crestor 40 mg tablet RxNorm: 014600 1 Tablet(s) PO daily No Start Date 09/15/2016 Inactive metoprolol succinate ER 100 mg tablet,extended release 24 hr RxNorm: 356259 1 Tablet(s) PO daily No Start Date [...] URIN E CULTURE See Note 02/03/2019 Pt [id number] PT 24.7 seconds 01/12/2019 Pt Oxf5120 INR 2.3 01/12/2019 Pt Mfu5902 Low Intensity - 1.5-2.0 01/12/2019 Pt Fpw8919 Mod intensity - 2.0-3.0 01/12/2019 Pt Hli7797 Hi intensity - 3.0-4.0 01/12/2019 Cbc With [...] 27.0 pg 01/12/2019 Cbc With Differential Ord2 [place]% 11.1 % 01/12/2019 Cbc With Differential Ord2 [...] 0.92 K/ul 01/12/2019 Cbc With Differential Ord2 [place] ABS# 0.4 K/ul 01/12/2019 Cbc With Differential Ord2 Eos ABS# 0.1 K/ul 01/12/2019 Cbc With Differential Ord2 Baso ABS# 0.0 K/ul 01/12/2019 Comp Metabolic Kcs701 NA 141 mEq/L 01/12/2019 Comp Metabolic Isn824 K 3.8 mEq/L 01/12/2019 Comp Metabolic Mqc425 CL 105 mEq/L 01/12/2019 Comp Metabolic Bkj690 CO2 26.0 mEq/L 01/12/2019 Comp Metabolic Xmx826 AN ION GAP 14 01/12/2019 Comp Metabolic Ato203 GL UCOSE 112 mg/dL 01/12/2019 Comp Metabolic Oyy880 Cr eat 1.0 mg/dL 01/12/2019 Comp Metabolic Eus605 eG FR 60 ml/min/1.73m2 01/12 Comp Metabolic Dtj227 BUN 14 mg/dL 01/12/2019 Comp Metabolic Kur902 B/ C Ratio 14.4 Ratio 01/12/2019 Comp Metabolic Qxo217 CA LCIUM 8.8 mg/dL 01/12/2019 Comp Metabolic Hvn653 AL K PHOS 60 U/L 01/12/2019 Comp Metabolic Eoi081 T(SGOT) 22 U/L 01/12/2019 Comp Metabolic Oip151 AL T(SGPT) 22 U/L 01/12/2019 Comp Metabolic Uvf398 BI LI T 0.5 mg/dL 01/12/2019 Comp Metabolic Tap346 AL BUMIN 3.9 g/dL 01/12/2019 Comp Metabolic Nxo633 TP RO 6.5 g/dL 01/12/2019 Comp Metabolic Pmr888 GL OB 2.6 g/dL 01/12/2019 Comp Metabolic Wkh954 A/ G Ratio 1.5 Ratio 01/12/2019 Comp Metabolic Hke549 Os mo 282 mOsmo 01/12/2019 Vitamin D 25 Oh Pba5393 VITAMIN D, 25 HYDROXY 30.62 ng/mL 01/12/2019 Urine Culture Ucult Comp lete >100,000 col/ml aerobic grow th sent to ref lab 11/16/2018 Culture Urine [id number] URI NE CULTURE SEE NOTES 08/22/2018 Culture Urine [id number] Con tinued Results 08/22/2018 Urine Culture Ucult Comp lete >100,000 col/ml aerobic grow th sent to ref lab 08/19/2018 Comp Metabolic Qch958 NA 140 mEq/L 08/01/2018 Comp Metabolic Zez685 K 4.2 mEq/L 08/01/2018 Comp Metabolic Gcd928 CL 102 mEq/L 08/01/2018 Comp Metabolic Ahf492 CO2 27.0 mEq/L 08/01/2018 Comp Metabolic Zui953 AN ION GAP 15 08/01/2018 Comp Metabolic Omj357 GL UCOSE 107 mg/dL 08/01/2018 Comp Metabolic Rrz520 Cr eat 1.0 mg/dL 08/01/2018 Comp Metabolic Szf848 eG FR 58 ml/min/1.73m2 08/01 Comp Metabolic Ahr357 BUN 10 mg/dL 08/01/2018 Comp Metabolic Khc770 B/ C Ratio 10.0 Ratio 08/01/2018 Comp Metabolic Fdk307 CA LCIUM 8.9 mg/dL 08/01/2018 Comp Metabolic Vlb973 AL K PHOS 68 U/L 08/01/2018 Comp Metabolic Pig774 T(SGOT) 18 U/L 08/01/2018 Comp Metabolic Xif116 AL T(SGPT) 14 U/L 08/01/2018 Comp Metabolic Kcq693 BI LI T 0.5 mg/dL 08/01/2018 Comp Metabolic Owy781 AL BUMIN 4.0 g/dL 08/01/2018 Comp Metabolic Nqu156 TP RO 6.3 g/dL 08/01/2018 Comp Metabolic Rjv152 GL OB 2.3 g/dL 08/01/2018 Comp Metabolic Bik273 A/ G Ratio 1.7 Ratio 08/01/2018 Comp Metabolic Lis392 Os mo 279 mOsmo 08/01/2018 Tsh Ord6 [...] 27.3 pg 08/01/2018 Cbc With Differential Ord2 [place]% 9.8 % 08/01/2018 Cbc With Differential Ord2 [...] 0.79 K/ul 08/01/2018 Cbc With Differential Ord2 [place] ABS# 0.4 K/ul 08/01/2018 Cbc With Differential Ord2 Eos ABS# 0.1 K/ul 08/01/2018 Cbc With Differential Ord2 Baso ABS# 0.0 K/ul 08/01/2018 Lipid Ord30 CHOL 234 mg/dL 08/01/2018 Lipid Ord30 HDL 69.0 mg/dl 08/01/2018 Lipid Ord30 TRIG 57 mg/dL 08/01/2018 Lipid Ord30 LDL 154 mg/dL 08/01/2018 Lipid Ord30 C/HDL 3.4 Ratio 08/01/2018 Comp Metabolic Ydj993 NA 137 mEq/L 09/30/2015 Comp Metabolic Hii195 K 4.5 mEq/L 09/30/2015 Comp Metabolic Zwi402 CL 102 mEq/L 09/30/2015 Comp Metabolic Odk161 CO2 26.0 mEq/L 09/30/2015 Comp Metabolic Blp876 AN ION GAP 14 09/30/2015 Comp Metabolic Xwd852 GL UCOSE 89 mg/dL 09/30/2015 Comp Metabolic Pzu298 Cr eat 0.8 mg/dL 09/30/2015 Comp Metabolic Pcu360 eG FR 79 ml/min/1.73m2 09/29 Comp Metabolic Dqa602 BUN 14 mg/dL 09/30/2015 Comp Metabolic Wen655 B/ C Ratio 18.2 Ratio 09/30/2015 Comp Metabolic Twt398 CA LCIUM 8.9 mg/dL 09/30/2015 Comp Metabolic Lya898 AL K PHOS 65 U/L 09/30/2015 Comp Metabolic Mxi893 T(SGOT) 26 U/L 09/30/2015 Comp Metabolic Lup450 AL T(SGPT) 18 U/L 09/30/2015 Comp Metabolic Njk084 BI LI T 0.6 mg/dL 09/30/2015 Comp Metabolic Bng153 AL BUMIN 3.8 g/dL 09/30/2015 Comp Metabolic Zmj455 TP RO 6.6 g/dL 09/30/2015 Comp Metabolic Pus104 GL OB 2.8 g/dL 09/30/2015 Comp Metabolic Qhi817 A/ G Ratio 1.4 Ratio 09/30/2015 Comp Metabolic Cdx798 Os mo 274 mOsmo 09/30/2015 Cbc With [...] 27.7 pg 09/30/2015 Cbc With Differential Ord2 [place]% 10.7 % 09/30/2015 Cbc With Differential Ord2 [...] 1.10 K/ul 09/30/2015 Cbc With Differential Ord2 [place] ABS# 0.6 K/ul 09/30/2015 Cbc With Differential Ord2 Eos ABS# 0.2 K/ul 09/30/2015 Cbc With Differential Ord2 Baso ABS# 0.0 K/ul 09/30/2015 Cbc With Differential Ord2 New Analyzer Notice Please note new ref ranges s tarting 08-07-2015 due to implemntation of new five part differential hematolgy analyzer. 09/30/2015 Tsh Ord6 hTSH II 1.05 uIU/mL 03/06/2015 Comp Metabolic Bad148 NA 137 mEq/L 03/06/2015 Comp Metabolic Jiq708 K 4.3 mEq/L 03/06/2015 Comp Metabolic Ljk763 CL 104 mEq/L 03/06/2015 Comp Metabolic Vxx157 CO2 28.0 mEq/L 03/06/2015 Comp Metabolic Gup653 AN ION GAP 9 03/06/2015 Comp Metabolic Hvf387 GL UCOSE 93 mg/dL 03/06/2015 Comp Metabolic Wjq862 Cr eat 0.8 mg/dL 03/06/2015 Comp Metabolic Jzh492 eG FR 81 ml/min/1.73m2 03/06 Comp Metabolic Yau262 BUN 12 mg/dL 03/06/2015 Comp Metabolic Als099 B/ C Ratio 16.0 Ratio 03/06/2015 Comp Metabolic Vxp534 CA LCIUM 8.9 mg/dL 03/06/2015 Comp Metabolic Hpi716 AL K PHOS 56 U/L 03/06/2015 Comp Metabolic Kbe910 T(SGOT) 22 U/L 03/06/2015 Comp Metabolic Gvx129 AL T(SGPT) 15 U/L 03/06/2015 Comp Metabolic Yeu865 BI LI T 0.4 mg/dL 03/06/2015 Comp Metabolic Fid592 AL BUMIN 4.0 g/dL 03/06/2015 Comp Metabolic Fcm846 TP RO 6.5 g/dL 03/06/2015 Comp Metabolic Orq933 GL OB 2.5 g/dL 03/06/2015 Comp Metabolic Xtq243 A/ G Ratio 1.6 Ratio 03/06/2015 Comp Metabolic Lib717 Os mo 273 mOsmo 03/06/2015 Vitamin D 25 Oh Jsj3121 VITAMIN D, 25 HYDROXY 28.14 ng/mL 03/06/2015 [...] Date URINALYSIS NONAUTO W /O SCOPE CPT-4: 83069 01/31/2019 URINALYSIS NONAUTO W /O SCOPE CPT-4: 44686 01/12/2019 URINALYSIS NONAUTO W /O SCOPE CPT-4: 47262 12/06/2018 URINALYSIS NONAUTO W /O SCOPE CPT-4: 30352 11/15/2018 URINALYSIS NONAUTO W /O SCOPE CPT-4: 93171 08/18/2018 ADMIN INFLUENZA VIRU S VAC CPT-4: G0008 04/20/2018 FLU VACC PRSV FREE I NC ANTIG Formatting Model/CDA Sections, Assigned to/Amparo Mims CPT-4: [id number] 04/20/2018 PPPS, SUBSEQ VISIT CPT- 4: G0439 02/09/2018 PPPS, SUBSEQ VISIT CPT- 4: G0439 02/03/2017 ADMIN INFLUENZA VIRU S VAC CPT-4: G0008 04/08/2016 ADMIN PNEUMOCOCCAL V ACCINE SNOMED CT: 20846183 CPT-4: G0009 04/08/2016 PNEUMOCOCCAL VACC [address]: 42090607 CPT-4: 34139 04/08/2016 FLU VACC PRSV FREE I NC ANTIG CPT-4: 81428 04/08/2016 Vital Signs Date Vital 02/23/2019 Blood Pressure 1: 120/60 Code: 8480-6 BMI: 41.2 Code: 59148-9 Heart Rate 1: 80 bpm Height: 5'7" SpO2: 95% Weight: 263 lbs 02/14/2019 Blood Pressure 1: 110/60 Code: 8480-6 BMI: 41.0 Code: 34954-6 Heart Rate 1: 81 bpm Height: 5'7" SpO2: 91% Weight: 262 lbs 01/31/2019 Blood Pressure 1: 120/56 Code: 8480-6 Heart Rate 1: 85 bpm Height: 5'7" SpO2: 96% Weight: 01/12/2019 Blood Pressure 1: 128/68 Code: 8480-6 BMI: 41.2 Code: 66214-0 Heart Rate 1: 82 bpm Height: 5'7" SpO2: 92% Weight: 263 lbs 12/06/2018 Blood Pressure 1: 118/70 Code: 8480-6 BMI: 41.5 Code: 67599-9 Heart Rate 1: 97 bpm Height: 5'7" SpO2: 96% Weight: 265 lbs 11/15/2018 Blood Pressure 1: 144/76 Code: 8480-6 BMI: 42.3 Code: 45198-6 Heart Rate 1: 82 bpm Height: 5'7" SpO2: 96% Weight: 270 lbs 10/25/2018 Blood Pressure 1: 128/80 Code: 8480-6 BMI: 42.0 Code: 38883-8 Heart Rate 1: 93 bpm Height: 5'7" SpO2: 95% Weight: 268 lbs 10/13/2018 Blood Pressure 1: 162/76 Code: 8480-6 BMI: 42.0 Code: 34062-6 Heart Rate 1: 71 bpm Height: 5'7" SpO2: 96% Weight: 268 lbs 09/15/2018 Blood Pressure 1: 154/86 Code: 8480-6 BMI: 42.9 Code: 01466-4 Heart Rate 1: 88 bpm Height: 5'7" SpO2: 94% Weight: 274 lbs 08/15/2018 Blood Pressure 1: 140/90 Code: 8480-6 BMI: 40.7 Code: 86379-0 Heart Rate 1: 70 bpm Height: 5'7" SpO2: 93% Weight: 260 lbs 08/01/2018 Blood Pressure 1: 130/70 Code: 8480-6 BMI: 40.7 Code: 94786-6 Heart Rate 1: 80 bpm Height: 5'7" SpO2: 93% Weight: 260 lbs 04/20/2018 Blood Pressure 1: 128/68 Code: 8480-6 BMI: 41.7 Code: 03751-6 Heart Rate 1: 85 bpm Height: 5'7" SpO2: 94% Weight: 266 lbs 02/09/2018 Blood Pressure 1: 118/70 Code: 8480-6 BMI: 42.1 Code: 44402-9 Heart Rate 1: 58 bpm Height: 5'7" SpO2: 94% Weight: 269 lbs 12/16/2017 Blood Pressure 1: 132/86 Code: 8480-6 BMI: 42.7 Code: 60936-4 Heart Rate 1: 63 bpm Height: 5'7" SpO2: 94% Weight: 272 lbs 14 o z 08/23/2017 Blood Pressure 1: 150/82 Code: 8480-6 BMI: 42.0 Code: 20243-2 Heart Rate 1: 66 bpm Height: 5'7" SpO2: 96% Weight: 268 lbs 02/03/2017 Blood Pressure 1: 138/72 Code: 8480-6 BMI: 41.2 Code: 05379-6 Heart Rate 1: 96 bpm Height: 5'7" SpO2: 97% Weight: 263 lbs 02/02/2017 Blood Pressure 1: 140/90 Code: 8480-6 BMI: 41.2 Code: 42319-3 Heart Rate 1: 103 bpm Height: 5'7" SpO2: 94% Weight: 263 lbs 11/26/2016 Blood Pressure 1: 152/88 Code: 8480-6 BMI: 41.0 Code: 20012-9 Heart Rate 1: 71 bpm Height: 5'7" SpO2: 94% Temperature: 37.7 (C ) / 99.8 (F) Weight: 262 lbs 10/07/2016 Blood Pressure 1: 148/82 Code: 8480-6 BMI: 41.7 Code: 68488-9 Heart Rate 1: 58 bpm Height: 5'7" SpO2: 96% Weight: 266 lbs 09/16/2016 Blood Pressure 1: 122/70 Code: 8480-6 BMI: 42.0 Code: 27739-5 Heart Rate 1: 65 bpm Height: 5'7" SpO2: 96% Weight: 268 lbs 09/07/2016 Blood Pressure 1: 154/60 Code: 8480-6 BMI: 42.3 Code: 62715-3 Heart Rate 1: 101 bpm Height: 5'7" SpO2: 97% Weight: 270 lbs 04/08/2016 Blood Pressure 1: 128/70 Code: 8480-6 BMI: 41.4 Code: 72873-9 Heart Rate 1: 62 bpm Height: 5'7" SpO2: 95% Weight: 264 lbs 8 oz 03/05/2016 Blood Pressure 1: 144/78 Code: 8480-6 Blood Pressure 1: 139/72 Code: 8480-6 BMI: 41.9 Code: 41432-1 Heart Rate 1: 71 bpm Height: 5'7" SpO2: 93% Weight: 267 lbs 8 oz 12/04/2015 Blood Pressure 1: 132/70 Code: 8480-6 BMI: 41.3 Code: 73984-0 Heart Rate 1: 56 bpm Height: 5'7" SpO2: 96% Weight: 264 lbs 11/18/2015 Blood Pressure 1: 138/72 Code: 8480-6 BMI: 41.0 Code: 59620-8 Heart Rate 1: 85 bpm Height: 5'7" SpO2: 93% Weight: 262 lbs 09/30/2015 Blood Pressure 1: 128/76 Code: 8480-6 BMI: 41.2 Code: 27708-4 Heart Rate 1: 70 bpm Height: 5'7" SpO2: 93% Weight: 263 lbs 09/09/2015 Blood Pressure 1: 138/80 Code: 8480-6 BMI: 40.3 Code: 91337-3 Heart Rate 1: 84 bpm Height: 5'7" SpO2: 95% Weight: 257 lbs 08/28/2015 Blood Pressure 1: 122/72 Code: 8480-6 BMI: 39.6 Code: 69039-2 Heart Rate 1: 75 bpm Height: 5'7" SpO2: 96% Weight: 253 lbs 07/09/2015 Blood Pressure 1: 140/78 Code: 8480-6 Blood Pressure 1: 135/78 Code: 8480-6 BMI: 39.5 Code: 36505-9 Heart Rate 1: 62 bpm Height: 5'7" SpO2: 95% Weight: 252 lbs 03/06/2015 Blood Pressure 1: 142/88 Code: 8480-6 BMI: 39.3 Code: 20602-5 Heart Rate 1: 65 bpm Height: 5'7" [...] Encounters Encounter Performer Loca tion Codes Date ([id number]) 14765 EST. P ATIENT, LEVEL III Diagnosis: Urinary tract infection, site not specified[ICD10: N39.0] Diagnosis: Localized edema[ICD10: R60.0] [facility] CPT- 4: 54308 02/23/2019 ([id number]) 07012 EST. P ATIENT, LEVEL III Diagnosis: Localized edema[ICD10: R60.0] Diagnosis: Lumbago with sciatica, right side[ICD10: M54.41] [facility] CPT-4: 80849 02/14/2019 05934 EST. PATIENT, LEVEL IV Diagnosis: Lumbago with sciatica, right side[ICD10: M54.41] Diagnosis: Dysuria[ICD10: R30.0] Diagnosis: Paroxysmal atrial fibrillation[ICD10: I48.0] Alis Spring MD, [facility] CPT-4: 32822 01/31/2019 ([id number]) 30080 EST. P ATIENT, LEVEL IV Diagnosis: Essential (primary) hypertension[ICD10: I10] Diagnosis: Chronic atrial fibrillation[ICD10: I48.2] Diagnosis: Localized edema[ICD10: R60.0] Diagnosis: Dysuria[ICD10: R30.0] Diagnosis: Low back pain[ICD10: M54.5] Diagnosis: Vitamin D deficiency, unspecified[ICD10: E55.9] Alis Spring MD, [facility] CPT-4: 61672 01/12/2019 ([id number]) 65930 EST. P ATIENT, LEVEL IV Diagnosis: Localized edema[ICD10: R60.0] Diagnosis: Dysuria[ICD10: R30.0] Diagnosis: Cellulitis of abdominal wall[ICD10: L03.311] Alis Spring MD, [facility] CPT-4: 84705 12/06/2018 ([id number]) 90685 EST. P ATIENT, LEVEL III Diagnosis: Dysuria[ICD10: R30.0] Diagnosis: Essential (primary) hypertension[ICD10: I10] Diagnosis: Major depressive disorder, recurrent, moderate[ICD10: F33.1] Alis Spring MD, [facility] CPT-4: 57383 11/15/2018 ([id number]) 60791 EST. P ATIENT, LEVEL IV Diagnosis: Eructation[ICD10: R14.2] Diagnosis: Nausea[ICD10: R11.0] Diagnosis: Chest pain, unspecified[ICD10: R07.9] Diagnosis: Diarrhea, unspecified[ICD10: R19.7] Alis Spring MD, [facility] CPT-4: 21518 10/25/2018 ([id number]) 53269 EST. P ATIENT, LEVEL IV Diagnosis: Essential (primary) hypertension[ICD10: I10] Diagnosis: Low back pain[ICD10: M54.5] Diagnosis: Major depressive disorder, recurrent, moderate[ICD10: F33.1] Alis Spring MD, [facility] CPT-4: 48004 10/13/2018 ([id number]) 69303 EST. P ATIENT, LEVEL IV Diagnosis: Essential (primary) hypertension[ICD10: I10] Diagnosis: Dysuria[ICD10: R30.0] Diagnosis: Low back pain[ICD10: M54.5] Alis Spring MD, [facility] CPT- 4: 92413 09/15/2018 ([id number]) 39664 EST. P ATIENT, LEVEL III Diagnosis: Essential (primary) hypertension[ICD10: I10] Diagnosis: Low back pain[ICD10: M54.5] Alis Spring MD, [facility] CPT- 4: 95117 08/15/2018 ([id number]) 31343 EST. P ATIENT, LEVEL III Diagnosis: Essential (primary) hypertension[ICD10: I10] Diagnosis: Cough[ICD10: R05] Diagnosis: Low back pain[ICD10: M54.5] Alis Spring MD, [facility] CPT- 4: 34423 08/01/2018 ([id number]) 72444 EST. P ATIENT, LEVEL IV Diagnosis: Encounter for immunization[ICD10: Z23] Diagnosis: Essential (primary) hypertension[ICD10: I10] Diagnosis: Chronic atrial fibrillation[ICD10: I48.2] Diagnosis: Major depressive disorder, recurrent, mild[ICD10: F33.0] Scarlett [facility] CPT-4: 52282 04/20/2018 ([id number]) 66115 EST. P ATIENT, LEVEL IV Diagnosis: Essential (primary) hypertension[ICD10: I10] Diagnosis: Obstructive sleep apnea (adult) (pediatric)[ICD10: G47.33] Diagnosis: Chronic atrial fibrillation[ICD10: I48.2] [facility] CPT-4: 99228 12/16/2017 ([id number]) 39598 EST. P ATIENT, LEVEL IV Diagnosis: Essential (primary) hypertension[ICD10: I10] Diagnosis: Chronic atrial fibrillation[ICD10: I48.2] Scarlett Spring MD, [facility] CPT-4: 77549 08/23/2017 ([id number]) 12023 EST. P ATIENT, LEVEL IV Diagnosis: Paroxysmal atrial fibrillation[ICD10: I48.0] Diagnosis: Essential (primary) hypertension[ICD10: I10] Scarlett Spring MD, [facility] CPT-4: 50997 02/02/2017 25618 EST. PATIENT, LEVEL III Diagnosis: Acute laryngopharyngitis[ICD10: J06.0] Diagnosis: Cough[ICD10: R05] Diagnosis: Pleurodynia[ICD10: R07.81] Diagnosis: Other dorsalgia[ICD10: M54.89] Kassandra Spring MD, [facility] CPT-4: 41738 11/26/2016 ([id number]) 75875 EST. P ATIENT, LEVEL IV Diagnosis: Essential (primary) hypertension[ICD10: I10] Diagnosis: Pain in left knee[ICD10: M25.562] Diagnosis: Low back pain[ICD10: M54.5] Diagnosis: Major depressive disorder, recurrent, moderate[ICD10: F33.1] Scarlett Spring MD, [facility] CPT-4: 49520 10/07/2016 ([id number]) 34909 EST. P ATIENT, LEVEL IV Diagnosis: Essential (primary) hypertension[ICD10: I10] Diagnosis: Rash and other nonspecific skin eruption[ICD10: R21] Diagnosis: Major depressive disorder, recurrent, mild[ICD10: F33.0] Scarlett Spring MD, [facility] CPT-4: 45514 09/16/2016 60410 EST. PATIENT, LEVEL IV Diagnosis: Pain in left lower leg[ICD10: M79.662] Diagnosis: Pain in left knee[ICD10: M25.562] Kassandra Spring MD, [facility] CPT-4: 36865 09/07/2016 ([id number]) 70366 EST. P ATIENT, LEVEL IV Diagnosis: Encounter for immunization[ICD10: Z23] Diagnosis: Essential (primary) hypertension[ICD10: I10] Diagnosis: Mixed hyperlipidemia[ICD10: E78.2] Scarlett Spring MD, [facility] CPT- 4: 86548 04/08/2016 ([id number]) 67548 EST. P ATIENT, LEVEL III Diagnosis: Essential (primary) hypertension[ICD10: I10] Diagnosis: Shortness of breath[ICD10: R06.02] Scarlett Spring MD, [facility] CPT- 4: 80119 03/05/2016 ([id number]) 37354 EST. P ATIENT, LEVEL III Diagnosis: Chronic obstructive pulmonary disease, unspecified[ICD10: J44.9] Scarlett Spring MD, [facility] CPT-4: 43877 12/04/2015 ([id number]) 40199 EST. P ATIENT, LEVEL IV Diagnosis: Essential (primary) hypertension[ICD10: I10] Diagnosis: Allergic rhinitis due to pollen[ICD10: J30.1] Scarlett Spring MD, [facility] CPT-4: 47331 11/18/2015 ([id number]) 66752 EST. P ATIENT, LEVEL IV Diagnosis: Localized edema[ICD10: R60.0] Diagnosis: Dysuria[ICD10: R30.0] Diagnosis: Essential (primary) hypertension[ICD10: I10] Diagnosis: Nausea[ICD10: R11.0] Alis Spring MD, [facility] CPT-4: 37514 09/30/2015 ([id number]) 09722 EST. P ATIENT, LEVEL II Diagnosis: Methicillin susceptible Staphylococcus aureus infection as the cause of diseases classified elsewhere[ICD10: B95.61] Diagnosis: Methicillin susceptible Staphylococcus aureus infection, unspecified site[ICD10: A49.01] Alis Spring MD, [facility] CPT-4: 53026 09/09/2015 ([id number]) 56625 EST. P ATIENT, LEVEL III Diagnosis: Dermatophytosis, unspecified[ICD10: B35.9] Diagnosis: Rash and other nonspecific skin eruption[ICD10: R21] [facility] CPT-4: 69674 08/28/2015 ([id number]) 56787 EST. P ATIENT, LEVEL IV Diagnosis: Essential (primary) hypertension[ICD10: I10] Diagnosis: Gastro-esophageal reflux disease without esophagitis[ICD10: K21.9] Diagnosis: Other dorsalgia[ICD10: M54.89] [facility] CPT-4: 25551 07/09/2015 ([id number]) OFFICE VISI T, NEW - LEVEL 4 Diagnosis: ESSENTIAL HYPERTENSION[ICD9: 401.9] Diagnosis: Osteoporosis[ICD9: 733.00] Diagnosis: Back pain[ICD9: 724.5] Diagnosis: Insomnia[ICD9: 780.52] Diagnosis: ESOPHAGEAL REFLUX[ICD9: 530.81] [facility] CPT-4: 15470 03/06/2015 Plan of Care Planned Activity Notes [...] further attempt to reduce peripheral edema. 02/23/2019 Patient Education: Patient Medication Summary Completed [...] current dose 02/14/2019 Appointment: Alis Muhammad WPtel: [address] [place], [place] [phone] (15 min) Moderate 02/14/2019 Patient Education: Patient [...] becoming uncontrolled. 01/31/2019 Appointment: Alis Muhammad WPtel: [address] [place] [address] (30 min) Complex 01/31/2019 Patient Education: Patient Medication Summary Completed 01/31/2019 Care Plan: Urine Culture Pending 01/31/2019 Care Plan: Referral Order SNOMED-CT : [id number] Pending 01/31/2019 Visit Plan: Hypertension - well [...] labs today 01/12/2019 Appointment: Alis Muhammad WPtel: [address] [place] [address] (30 min) Complex 01/12/2019 Patient Education: Patient Medication Summary Completed 01/12/2019 Patient Education: Back Pain Completed 01/12/2019 Appointment: Alis Muhammad WPtel: [address] [place] [address] (30 min) Complex 12/13/2018 Visit Plan: Edema [...] warmth, discharge. 12/06/2018 Appointment: Alis Muhammad WPtel: [address] [place] [address] (30 min) Complex 12/06/2018 Patient Education: Patient [...] as indicated 11/15/2018 Appointment: Alis Muhammad WPtel: [phone] (15 min) Moderate 11/15/2018 Patient Education: [...] ER 10/25/2018 Appointment: Alis Muhammad WPtel: [phone] (15 min) Moderate 10/25/2018 Patient Education: Patient [...] current treatment 10/13/2018 Appointment: Alis Muhammad WPtel: [facility] [place] [address] (15 min) Moderate 10/13/2018 Patient Education: Patient [...] Dysuria-check Ua 09/15/2018 Appointment: Alis Muhammad WPtel: [phone] (30 min) Complex 09/15/2018 Patient Education: Patient [...] improve 08/15/2018 Appointment: Alis Muhammad WPtel: [phone] (30 min) Complex 08/15/2018 Patient Education: Patient Medication Summary Completed 08/15/2018 Patient Education: Back Pain Completed 08/15/2018 Visit Plan: HTN-onofre induced cough-s top lisinopril -start losartan -monitor blood pressure and follow up in 2 weeks Low back pain-xray lumbar spine and refer for PT 08/01/2018 App[facility]ment[phone] (15 min) Moderate 08/01/2018 Patient Education: Patient Medication Summary Completed 08/01/2018 Patient Education: Back Pain Completed 08/01/2018 Care Plan: X-RAY EXAM L-S SPINE 08/28 VWS LOINC : 06095-8 Pending 08/01/2018 Visit Plan: Hypertension - well [...] today. 04/20/2018 Appointment: Scarlett Spring WPtel: [phone] [facility] (15 min) Moderate 04/20/2018 Patient Education: [...] care surrogate. 02/09/2018 Appointment: Kassandra Argueta WPtel: [facility] [facility] - Annual Wellness Visit 02/09/2018 [...] night. 12/16/2017 Appointment: Scarlett Spring WPtel: [facility] (15 min) Moderate 12/16/2017 Patient Education: [...] uncontrolled. 08/23/2017 Appointment: Scarlett Spring WPtel: [phone] [facility] (15 min) Moderate 08/23/2017 Patient Education: [...] to cardiology 02/03/2017 Appointment: Kassandra Argueta WPtel: [phone] [facility] [facility] - Annual Wellness Visit 02/03/2017 [...] home. 02/02/2017 Appointment: Scarlett Spring WPtel: [phone] [facility] (15 min) Moderate 02/02/2017 Patient Education: [...] improve. 11/26/2016 Appointment: [phone] (30 min) Complex 11/26/2016 Patient [...] symptoms. 10/07/2016 [facility]ment[phone] ([facility] min) Moderate 10/07/2016 Patient Education: Patient Medication Summary Completed 10/07/2016 Patient Education: Obesity Completed 10/07/2016 Patient Education: Hypertension Completed 10/07/2016 Care Plan: VASCULAR STUDY Pending 10/04/2016 Care Plan: X-RAY EXAM OF KNEE 3 [facility] : 68575-3 Pending 10/04/2016 Visit Plan: Hypertension - well [...] paroxetine 09/16/2016 Appointment: Scarlett Spring [facility]Ptel[phone] [facility] [place] (15 min) Moderate 09/16/2016 Patient [...] improve. 09/07/2016 Appointment: [facility]el[phone] [place] (10 min) Simple 09/07/2016 [...] order 04/08/2016 Appointment: Scarlett Spring [facility]Ptel[facility] [phone] [facility] (15 min) Moderate 04/08/2016 Patient Education: [...] days. 03/05/2016 Appointment: Scarlett Spring [facility]Ptel[phone] [facility] (15 min) Moderate 03/05/2016 Patient Education: Patient Medication Summary Completed 03/05/2016 Visit Plan: COPD - chronic problem for this patient. We have reviewed chronic treatment strategy, symptom control, and plans for acute exacerbations. No changes today to the current treatment plan as the patient is stable, monitor for acute changes. anoro samples given to the patient 12/04/2015 Appointment: Scarlett Spring WPtel[facility] [phone] [facility] (15 min) Moderate 12/04/2015 Patient [...] spray. 11/18/2015 Appointment: Scarlett Spring WPtel: [phone] [facility] (15 min) Moderate 11/18/2015 Patient Education: Patient Medication Summary Completed 11/18/2015 Patient Education: Obesity Completed 11/18/2015 Patient Education: Hypertension Completed 11/18/2015 Appointment: Scarlett Spring WPtel: [phone] [facility] (15 min) Moderate 11/07/2015 [...] Visit Plan: MSSA of groin and under rrrykwj-ofwjmroze-odbyrz bactrim and call if rash does not completely resolve 09/09/2015 Appointment: (15 min) Moderate 09/09/2015 Patient Education: Patient Medication Summary Completed 09/09/2015 Visit Plan: Rash - dermatophytosis - recommended oral diflucan, topical nystatin cream, rtc in 10 days to assure healing. check of culture - may need to consider treatment with antibiotic depending on the groin culture report. 08/28/2015 Appointment: Scarlett pSring WPtel: [facility] (15 min) Moderate 08/28/2015 Patient Education: [...] Appointment: Scarlett Spring WPtel[facility] [phone] [facility] (15 min) Moderate 07/09/2015 Patient Education: [...] improving. 03/06/2015 Appointment: Scarlett Spring WPtel[facility] [phone] [facility] [place] ([place] New Patient 03/06/2015 [...] will find out if anyone comes to [place] check UA start probiotic daily . Hypertension [...]
--- OUTSIDE RECORDS SUMMARY | 2020-01-23 14:05 | XMS REPORT | CCD ---
Author Author Jeannine Spring Organization Scarlett Spring MD, [facility] Address [address] [place] [address] Phone Care Team Providers Care Iuss Master Analyst Name Role Phone PP Unavailable CCM Unavailable Summary Purpose Interface Exchange Insurance Providers Payer name Policy type / Coverage type Covered republican ID Effective Begin Date Effective End Date WPS Medicare Part B Medicare Part B [id number] Unknown [facility] LIFE [facility] Medicare Part B [id number] Unkn own Family history Mother Diagnosis Age At Onset Hypertension Unknown Heart Attack Unknown Brother Diagnosis Age At Onset Heart disease Unknown Runs in the family Diagnosis Age At Onset Heart disease Unknown Daughter Diagnosis Age At Onset Heart Attack Unknown Hyperlipidemia Unknown Hypertension Unknown Social History Social History Element Codes Description Effective Dates Number of children Unknown 2 daughter lives in [place], son - does not have contact 09/16/[address]: 8256426 Quit over 10 years ago 1990 - previously smoked 2ppd x 25 years. 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 03/06/2015 Allergies, Adverse Reactions, Alerts Substance Reaction Codes Entered Date Inactivated Date Status * NO KNOWN FOOD MYRNA RGIES Unknown 03/06/2015 No Inactive Date Active Iodine RxNorm: 5933 03/06/2015 No Inactive Date Active Penicillin Unknown 03/06/2015 No In active Date Active Past Medical History Illness Codes Condition Status Onset Date Resolved Date Localized edema ICD-9: 782.3 ICD-10: R60.0 Active 09/29/2015 Unknown Lumbago with sciatic a, right side [...] edema ICD-9: 782.3 ICD-10: R60.0 09/29/2015 Active Lumbago with sciatic a, right side [...] Date Stop Date Sta tus Fill Instructions doxycycline hyclate 100 mg tablet,delayed release RxNorm: 230254 1 Tablet(s) PO BID 02/03/2019 02/02/2019 In active doxycycline hyclate 100 mg tablet,delayed release RxNorm: 477732 1 Tablet(s) PO BID an d probiotic bid 02/03/2019 02/09/2019 Inactive may use capsule if cheaper gabapentin 100 mg ca psule RxNorm: 173910 1 Capsule(s) PO TID 01/31/2019 04/30/2019 Active Ambien 10 mg tablet RxNorm: 160746 Tablet(s) TAKE ONE TABLET BY MOUTH AT BE DTIME NEEDED 01/20/2019 05/19/2019 Active Vitamin D2 50,000 un it capsule RxNorm: 8766150 1 Capsule(s) PO QW 01/18/2019 03/18/2019 Active Ambien 10 mg tablet RxNorm: 545275 Tablet(s) TAKE ONE TABLET BY MOUTH AT BE DTIME NEEDED 12/21/2018 04/18/2019 Active mupirocin 2 % topica l ointment RxNorm: 272056 1 Application TOP BID 12/06/2018 12/19/2018 Inactive doxycycline hyclate 100 mg tablet RxNorm: 2335367 1 Tablet(s) PO BID 11/21/2018 11/27/2018 Inactive can exchange for capsule if cheaper doxycycline hyclate 100 mg tablet RxNorm: 6112848 1 Tablet(s) PO BID 11/21/2018 11/20/2018 Inactive simethicone 125 mg c hewable tablet RxNorm: 807043 1 Tablet(s) PO qid pr n 10/25/2018 No Stop Date Active promethazine 25 mg t ablet RxNorm: 447465 1 Tablet(s) PO Q6 PRN 10/25/2018 No Stop Date Active paroxetine 40 mg tablet RxNorm: 8426807 1 Tablet(s) PO daily 10/13/2018 04/10/2019 Active valsartan 160 mg tablet RxNorm: 840630 1 Tablet(s) PO daily 10/13/2018 04/10/2019 Active terazosin 5 mg capsule RxNorm: 563499 TAKE ONE CAPSULE BY MOUTH DAILY 09/23/2018 02/19/2019 Ac tive trazodone 50 mg tablet RxNorm: 384445 TAKE ONE TABLET BY MOUTH DAILY 09/23/2018 03/21/2019 Ac tive Ambien 10 mg tablet RxNorm: 862986 TAKE ONE TABLET BY MOUTH AT BEDTIME N EEDED 09/23/2018 11/20/2018 Inactive losartan 50 mg tablet RxNorm: 491628 1 Tablet(s) PO daily 09/15/2018 10/12/2018 Inactive omeprazole 20 mg cap marina,delayed release RxNorm: 809318 TAKE ONE CAPSULE BY M OUTH EVERY NIGHT AT BEDTIME 09/12/2018 03/10/2019 Active Keflex 500 mg capsule RxNorm: 238500 1 Capsule(s) PO TID 08/18/2018 08/17/2018 Inactive Keflex 500 mg capsule RxNorm: 193853 1 Capsule(s) PO TID 08/18/2018 08/24/2018 Inactive take probiotic while on abx paroxetine 20 mg tablet RxNorm: 6636137 TAKE ONE TABLET BY MOUTH DAILY 08/12/2018 10/12/2018 In active losartan 25 mg tablet RxNorm: 440031 1 Tablet(s) PO daily 08/01/2018 09/14/2018 Inactive losartan 25 mg tablet RxNorm: 600275 1 Tablet(s) PO daily 08/01/2018 10/12/2018 Inactive trazodone 50 mg tablet RxNorm: 222116 TAKE ONE TABLET BY MOUTH DAILY 07/25/2018 09/22/2018 In active Ambien 10 mg tablet RxNorm: 125004 Tablet(s) TAKE ONE TABLET BY MOUTH AT BE DTIAR 06/24/2018 09/23/2018 Inactive trazodone 50 mg tablet RxNorm: 741905 TAKE ONE TABLET BY MOUTH DAILY 04/25/2018 07/23/2018 In active Ambien 10 mg tablet RxNorm: 547961 Tablet(s) TAKE ONE TABLET BY MOUTH AT BE DTIAR 03/23/2018 06/19/2018 Inactive terazosin 5 mg capsule RxNorm: 812144 TAKE ONE CAPSULE BY MOUTH DAILY 03/14/2018 09/09/2018 In active Ambien 10 mg tablet RxNorm: 745863 Tablet(s) TAKE ONE TABLET BY MOUTH AT BE DTIME 01/18/2018 09/14/2018 Inactive trazodone 50 mg tablet RxNorm: 468282 TAKE ONE TABLET BY MOUTH ONCE DAILY 01/10/2018 03/22/2018 In active trazodone 50 mg tablet RxNorm: 974196 Tablet(s) TAKE ONE TABLET BY MOUTH ONCE DAILY 01/10/2018 04/24/2018 Inactive Ambien 10 mg tablet RxNorm: 194548 Tablet(s) TAKE ONE TABLET BY MOUTH AT BE DTIME 10/22/2017 01/17/2018 Inactive trazodone 50 mg tablet RxNorm: 473866 TAKE ONE TABLET BY MOUTH ONCE DAILY 10/18/2017 01/09/2018 In active omeprazole 20 mg cap marina,delayed release RxNorm: 594329 TAKE ONE CAPSULE BY M OUTH ONCE DAILY AT BEDTIME 08/27/2017 09/11/2018 Inactive trazodone 50 mg tablet RxNorm: 261961 TAKE ONE TABLET BY MOUTH ONCE DAILY 08/18/2017 10/17/2017 In active Ambien 10 mg tablet RxNorm: 977215 Tablet(s) TAKE ONE TABLET BY MOUTH AT BE DTIAR 08/18/2017 03/22/2018 Inactive paroxetine 20 mg tablet RxNorm: 4082810 TAKE ONE TABLET BY MOUTH ONCE DAILY 07/27/2017 08/11/2018 In active Ambien 10 mg tablet RxNorm: 015289 Tablet(s) TAKE ONE TABLET BY MOUTH AT BE DTIAR 06/23/2017 03/22/2018 Inactive omeprazole 20 mg cap marina,delayed release RxNorm: 525933 TAKE ONE CAPSULE BY M OUTH ONCE DAILY AT BEDTIME 04/23/2017 08/20/2017 Inactive trazodone 50 mg tablet RxNorm: 374081 TAKE ONE TABLET BY MOUTH ONCE DAILY 04/13/2017 08/10/2017 In active terazosin 5 mg capsule RxNorm: 464632 Capsule(s) TAKE ONE CAPSULE BY MOUTH [facility] 04/08/2017 03/03/2018 In active Ambien 10 mg tablet RxNorm: 654219 Tablet(s) TAKE ONE TABLET BY MOUTH AT BE DTIAR 02/17/2017 03/22/2018 Inactive Tylenol-Codeine #3 3 00 mg-30 mg tablet RxNorm: 389112 1 Tablet(s) PO QID as needed 02/02/2017 11/14/2018 In active metoprolol succinate ER 50 mg tablet,extended release 24 hr RxNorm: 485460 TAKE ONE TABLET BY MOUTH ONCE DAILY 12/23/2016 02/02/2017 Inactive Zithromax Z-Ted 250 mg tablet RxNorm: 214082 1 Tablet(s) PO UD 11/26/2016 02/16/2017 Inactive trazodone 50 mg tablet RxNorm: 870029 TAKE ONE TABLET BY MOUTH ONCE DAILY 11/12/2016 03/11/2017 In active Ambien 10 mg tablet RxNorm: 967079 Tablet(s) TAKE ONE TABLET BY MOUTH AT DTIAR 10/22/2016 02/15/2017 Inactive paroxetine 20 mg tablet RxNorm: 9515735 1 Tablet(s) PO daily TAKE ONE TABLET BY MOUTH DAILY 09/16/2016 06/12/2017 Inactive meloxicam 7.5 mg tablet RxNorm: 246198 1 Tablet(s) PO daily 09/16/2016 11/14/2016 Inactive Protonix 40 mg table t,delayed release RxNorm: 077873 1 Tablet(s) PO daily 09/16/2016 08/22/2017 In active sucralfate 1 gram ta blet RxNorm: 808809 1 Tablet(s) PO TID 09/16/2016 08/22/2017 Inactive Ambien 10 mg tablet RxNorm: 630543 Tablet(s) TAKE ONE TABLET BY MOUTH AT [facility] 08/24/2016 03/22/2018 Inactive trazodone 50 mg tablet RxNorm: 839849 Tablet(s) TAKE ONE TABLET BY MOUTH DAILY 07/29/2016 11/11/2016 In active Ambien 10 mg tablet RxNorm: 100961 TAKE ONE TABLET BY MOUTH AT BEDTIME 06/23/2016 03/22/2018 In active Ambien 10 mg tablet RxNorm: 475190 Tablet(s) TAKE ONE TABLET BY MOUTH EVERY NIGHT AT BEDTIME 06/22/2016 06/23/2016 Inactive Lasix 40 mg tablet RxNorm: 234373 1 Tablet(s) PO daily as needed for swell ing 04/03/2016 09/15/2016 In active potassium chloride E R 20 mEq tablet,extended release RxNorm: 098636 1 Tablet(s) PO daily for swelling take with lasix as needed 04/03/2016 09/15/2016 Inactive Ambien 10 mg tablet RxNorm: 623804 Tablet(s) TAKE ONE TABLET BY MOUTH EVERY NIGHT AT BEDTIME 04/03/2016 03/22/2018 Inactive omeprazole 20 mg cap marina,delayed release RxNorm: 599223 TAKE ONE CAPSULE BY M OUTH EVERY NIGHT AT BEDTIME 03/31/2016 09/15/2016 Inactive paroxetine 20 mg tablet RxNorm: 1024001 TAKE ONE TABLET BY MOUTH DAILY 03/31/2016 09/15/2016 In active trazodone 50 mg tablet RxNorm: 405996 TAKE ONE TABLET BY MOUTH DAILY 03/20/2016 07/28/2016 In active terazosin 5 mg capsule RxNorm: 752844 TAKE ONE CAPSULE BY MOUTH DAILY 03/06/2016 10/06/2016 In active Ambien 10 mg tablet RxNorm: 308521 Tablet(s) TAKE ONE TABLET BY MOUTH EVERY NIGHT AT BEDTIME 01/17/2016 04/02/2016 Inactive loratadine 10 mg tablet RxNorm: 753646 1 Tablet(s) PO daily 01/15/2016 09/15/2016 Inactive mupirocin 2 % topica l ointment RxNorm: 810820 1 Application TOP TID 11/18/2015 12/01/2015 Inactive metoprolol succinate ER 50 mg tablet,extended release 24 hr RxNorm: 239631 1 Tablet(s) PO daily 11/18/2015 11/11/2016 Inactive loratadine 10 mg tablet RxNorm: 080037 1 Tablet(s) PO daily 11/18/2015 01/14/2016 Inactive Lasix 40 mg tablet RxNorm: 784686 1 Tablet(s) PO daily as needed for swell ing 10/30/2015 11/28/2015 In active potassium chloride E R 20 mEq tablet,extended release RxNorm: 752735 1 Tablet(s) PO daily for swelling take with lasix as needed 10/30/2015 11/28/2015 Inactive Tylenol-Codeine #3 3 00 mg-30 mg tablet RxNorm: 825168 1 Tablet(s) PO QID as needed 10/25/2015 02/01/2017 In active Ambien 10 mg tablet RxNorm: 312460 Tablet(s) TAKE ONE TABLET BY MOUTH EVERY NIGHT AT BEDTIME 10/18/2015 03/22/2018 Inactive Diflucan 150 mg tablet RxNorm: 576272 1 Tablet(s) PO daily 10/01/2015 12/03/2015 Inactive Lasix 20 mg tablet RxNorm: 520890 1 Tablet(s) PO PRN fror swelling 09/27/2015 10/29/2015 In active potassium chloride E R 10 mEq capsule,extended release RxNorm: 191647 1 Capsule(s) PO PRN for swelling take with lasix 09/27/2015 10/29/2015 Inactive Bactrim DS 800 mg-16 0 mg tablet RxNorm: 259330 1 Tablet(s) PO BID 09/02/2015 09/11/2015 Inactive Bactrim DS 800 mg-16 0 mg tablet RxNorm: 342081 1 Tablet(s) PO BID 09/02/2015 09/01/2015 Inactive nystatin 100,000 uni t/gram topical cream RxNorm: 973642 1 Gram(s) TOP TID 08/28/2015 09/26/2015 In active Diflucan 150 mg tablet RxNorm: 934252 1 Tablet(s) PO daily 08/28/2015 09/06/2015 Inactive betamethasone diprop ionate 0.05 % topical ointment RxNorm: 432432 1 Application TOP TID to affected area 08/02/2015 02/01/2017 Inactive nystatin 100,000 uni t/gram topical powder RxNorm: 251064 1 Gram(s) TOP QID 07/09/2015 08/01/2015 In active Ambien 10 mg tablet RxNorm: 357330 1 Tablet(s) PO QHS 06/19/2015 06/18/2015 Inactive Ambien 10 mg tablet RxNorm: 952909 TAKE ONE TABLET BY MOUTH EVERY NIGHT AT BEDTIME 06/19/2015 09/16/2015 Inactive Vitamin D2 50,000 un it capsule RxNorm: 793575 1 Capsule(s) PO QW 03/07/2015 03/06/2015 Inactive Vitamin D2 50,000 un it capsule RxNorm: 8048272 1 Capsule(s) PO QW 03/07/2015 05/05/2015 Inactive terazosin 5 mg capsule RxNorm: 761613 1 Capsule(s) PO daily 03/06/2015 02/28/2016 Inactive [SAVINGS FOR NON-COVERED DRUGS -- BIN:00 8875, PCN: [id number], Group: XXXXX, ID# [id number], Questions: . THIS IS NOT INSURANCE.] trazodone 50 mg tablet RxNorm: 381440 1 Tablet(s) PO daily 03/06/2015 02/28/2016 Inactive paroxetine 20 mg tablet RxNorm: 8764862 1 Tablet(s) PO daily 03/06/2015 02/28/2016 Inactive Tylenol-Codeine #3 3 00 mg-30 mg tablet RxNorm: 811016 1 Tablet(s) PO QID as needed 03/06/2015 07/02/2015 In active amlodipine 10 mg tablet RxNorm: 840577 1 Tablet(s) PO daily 03/06/2015 11/17/2015 Inactive metoprolol succinate ER 25 mg tablet,extended release 24 hr RxNorm: 087509 1 Tablet(s) PO daily 03/06/2015 11/17/2015 Inactive omeprazole 20 mg cap marina,delayed release RxNorm: 643340 1 Capsule(s) PO QHS 03/06/2015 02/28/2016 In active omeprazole 20 mg cap marina,delayed release RxNorm: 253999 1 Capsule(s) PO QHS 01/31/2015 01/30/2015 In active omeprazole 20 mg cap marina,delayed release RxNorm: 713178 1 Capsule(s) PO QHS 01/31/2015 01/30/2015 In active omeprazole 20 mg cap marina,delayed release RxNorm: 087437 1 Capsule(s) PO QHS 01/31/2015 03/05/2015 In active Ambien 10 mg tablet RxNorm: 582824 1 Tablet(s) PO QHS 12/25/2014 04/21/2015 Inactive paroxetine 20 mg tablet RxNorm: 638569 1 Tablet(s) PO daily 12/25/2014 12/24/2014 Inactive Ambien 10 mg tablet RxNorm: 289480 1 Tablet(s) PO QHS 12/25/2014 12/24/2014 Inactive paroxetine 20 mg tablet RxNorm: 265102 1 Tablet(s) PO daily 12/25/2014 03/05/2015 Inactive terazosin 5 mg capsule RxNorm: 779662 1 Capsule(s) PO daily 11/23/2014 03/05/2015 Inactive [SAVINGS FOR NON-COVERED DRUGS -- BIN:00 7985, PCN: ASPROD1, Group: XXXXX, ID# [id number], Questions: . THIS IS NOT INSURANCE.] terazosin 5 mg capsule RxNorm: 294266 1 Capsule(s) PO daily 11/23/2014 11/22/2014 Inactive Lasix 20 mg tablet RxNorm: 781966 1 Tablet(s) PO daily No Start Date Active K-Dur 10 mEq tablet, extended release RxNorm: 481467 1 Tablet(s) PO daily No Start Date Active Multaq 400 mg tablet RxNorm: 982211 oral No Start Date Active hydrochlorothiazide 25 mg tablet RxNorm: 671459 1 Tablet(s) PO daily No Start Date Active Vitamin D3 2,000 uni t tablet RxNorm: 513370 1 Tablet(s) PO daily No Start Date Active Zetia 10 mg tablet RxNorm: 610809 1 Tablet(s) PO daily No Start Date Active Lipitor 80 mg tablet RxNorm: 668958 1/2 Tablet(s) PO daily No Start Date Active Coumadin 4 mg tablet RxNorm: 380437 1 Tablet(s) PO daily No Start Date Active metoprolol succinate ER 25 mg tablet,extended release 24 hr RxNorm: 367649 1 Tablet(s) PO daily No Start Date 03/05/2015 Inactive Entresto 49 mg-51 mg tablet RxNorm: 3842917 1 Tablet(s) PO BID No Start Date 04/19/2018 Inactive sotalol 80 mg tablet RxNorm: 8991429 1 Tablet(s) PO BID No Start Date 04/19/2018 Inactive betamethasone diprop ionate 0.05 % topical ointment RxNorm: 724657 1 Application TOP TID to affected area No Start Date 08/01/2015 Inactive trazodone 50 mg tablet RxNorm: 187476 1 Tablet(s) PO daily No Start Date 03/05/2015 Inactive potassium chloride E R 10 mEq capsule,extended release RxNorm: 537955 1 Capsule(s) PO PRN for swelling take with lasix No Start Date 09/26/2015 Inactive Eliquis 5 mg tablet RxNorm: 0738128 1 Tablet(s) PO BID No Start Date 09/14/2018 Inactive amiodarone 200 mg ta blet RxNorm: 597620 1 Tablet(s) PO BID No Start Date 01/30/2019 Inactive amlodipine 10 mg tablet RxNorm: 190219 1 Tablet(s) PO daily No Start Date 03/05/2015 Inactive isosorbide mononitra te ER 30 mg tablet,extended release 24 hr RxNorm: 492302 1 Tablet(s) PO daily No Start Date 08/22/2017 Inactive aspirin 81 mg tablet ,delayed release RxNorm: 165002 1 Tablet(s) PO daily No Start Date 02/02/2017 Inactive Lasix 20 mg tablet RxNorm: 395858 1 Tablet(s) PO PRN fror swelling No Start Date 09/26/2015 Inactive lisinopril 5 mg tablet RxNorm: 944518 1 Tablet(s) PO daily No Start Date 07/31/2018 Inactive Crestor 40 mg tablet RxNorm: 482187 1 Tablet(s) PO daily No Start Date 09/15/2016 Inactive metoprolol succinate ER 100 mg tablet,extended release 24 hr RxNorm: 130338 1 Tablet(s) PO daily No Start Date 12/15/2017 Inactive Medication Administered No Medication Administered data Immunizations Vaccine Codes Date Status Influenza CVX: 141 04/20 completed Influenza CVX: 141 04/08 completed Pneumococcal (Adult) CVX: 133 04/08/2016 completed Assessments Condition Codes Effectiv e Dates Lumbago with sciatica, right side IC D-10: M54.41 ICD-9: 724.3 02/14/2019 Localized edema ICD-10: R60.0 ICD-9: 782.3 02/14/2019 Paroxysmal atrial fibrillation ICD-1 0: I48.0 [...] Visit Reason For Visit Effective Dates Notes low back pain 02/14/2019 low back pain [...] URIN E CULTURE See Note 02/03/2019 Pt [id number] PT 24.7 seconds 01/12/2019 Pt Rle5991 INR 2.3 01/12/2019 Pt Zuc9097 Low Intensity - 1.5-2.0 01/12/2019 Pt Zjd4638 Mod intensity - 2.0-3.0 01/12/2019 Pt Vzk8512 Hi intensity - 3.0-4.0 01/12/2019 Cbc With [...] 27.0 pg 01/12/2019 Cbc With Differential Ord2 [place]% 11.1 % 01/12/2019 Cbc With Differential Ord2 [...] 0.92 K/ul 01/12/2019 Cbc With Differential Ord2 [place] ABS# 0.4 K/ul 01/12/2019 Cbc With Differential Ord2 Eos ABS# 0.1 K/ul 01/12/2019 Cbc With Differential Ord2 Baso ABS# 0.0 K/ul 01/12/2019 Comp Metabolic Djg794 NA 141 mEq/L 01/12/2019 Comp Metabolic Brv822 K 3.8 mEq/L 01/12/2019 Comp Metabolic Lnh519 CL 105 mEq/L 01/12/2019 Comp Metabolic Ino552 CO2 26.0 mEq/L 01/12/2019 Comp Metabolic Lwz891 AN ION GAP 14 01/12/2019 Comp Metabolic Bxf326 GL UCOSE 112 mg/dL 01/12/2019 Comp Metabolic Djv766 Cr eat 1.0 mg/dL 01/12/2019 Comp Metabolic Xxw570 eG FR 60 ml/min/1.73m2 01/12 Comp Metabolic Vnb699 BUN 14 mg/dL 01/12/2019 Comp Metabolic Veu935 B/ C Ratio 14.4 Ratio 01/12/2019 Comp Metabolic Inw111 CA LCIUM 8.8 mg/dL 01/12/2019 Comp Metabolic Rwm714 AL K PHOS 60 U/L 01/12/2019 Comp Metabolic Yug825 T(SGOT) 22 U/L 01/12/2019 Comp Metabolic Ifp099 AL T(SGPT) 22 U/L 01/12/2019 Comp Metabolic Mjz159 BI LI T 0.5 mg/dL 01/12/2019 Comp Metabolic Rmf591 AL BUMIN 3.9 g/dL 01/12/2019 Comp Metabolic Byx002 TP RO 6.5 g/dL 01/12/2019 Comp Metabolic Jub213 GL OB 2.6 g/dL 01/12/2019 Comp Metabolic Upb912 A/ G Ratio 1.5 Ratio 01/12/2019 Comp Metabolic Mvm875 Os mo 282 mOsmo 01/12/2019 Vitamin D 25 Oh Wza1802 VITAMIN D, 25 HYDROXY 30.62 ng/mL 01/12/2019 Urine Culture Ucult Comp lete >100,000 col/ml aerobic grow th sent to ref lab 11/16/2018 Culture Urine [id number] URI NE CULTURE SEE NOTES 08/22/2018 Culture Urine [id number] Con tinued Results 08/22/2018 Urine Culture Ucult Comp lete >100,000 col/ml aerobic grow th sent to ref lab 08/19/2018 Comp Metabolic Ozg558 NA 140 mEq/L 08/01/2018 Comp Metabolic Brq552 K 4.2 mEq/L 08/01/2018 Comp Metabolic Blh523 CL 102 mEq/L 08/01/2018 Comp Metabolic Izi028 CO2 27.0 mEq/L 08/01/2018 Comp Metabolic Xqs802 AN ION GAP 15 08/01/2018 Comp Metabolic Dso384 GL UCOSE 107 mg/dL 08/01/2018 Comp Metabolic Rae223 Cr eat 1.0 mg/dL 08/01/2018 Comp Metabolic Ddl083 eG FR 58 ml/min/1.73m2 08/01 Comp Metabolic Ujx711 BUN 10 mg/dL 08/01/2018 Comp Metabolic Ter323 B/ C Ratio 10.0 Ratio 08/01/2018 Comp Metabolic Rlc540 CA LCIUM 8.9 mg/dL 08/01/2018 Comp Metabolic Wpg558 AL K PHOS 68 U/L 08/01/2018 Comp Metabolic Flv193 T(SGOT) 18 U/L 08/01/2018 Comp Metabolic Hyo411 AL T(SGPT) 14 U/L 08/01/2018 Comp Metabolic Mdb579 BI LI T 0.5 mg/dL 08/01/2018 Comp Metabolic Vfh065 AL BUMIN 4.0 g/dL 08/01/2018 Comp Metabolic Wec276 TP RO 6.3 g/dL 08/01/2018 Comp Metabolic Fqo052 GL OB 2.3 g/dL 08/01/2018 Comp Metabolic Bjl893 A/ G Ratio 1.7 Ratio 08/01/2018 Comp Metabolic Vog259 Os mo 279 mOsmo 08/01/2018 Tsh Ord6 [...] 27.3 pg 08/01/2018 Cbc With Differential Ord2 [place]% 9.8 % 08/01/2018 Cbc With Differential Ord2 [...] 0.79 K/ul 08/01/2018 Cbc With Differential Ord2 [place] ABS# 0.4 K/ul 08/01/2018 Cbc With Differential Ord2 Eos ABS# 0.1 K/ul 08/01/2018 Cbc With Differential Ord2 Baso ABS# 0.0 K/ul 08/01/2018 Lipid Ord30 CHOL 234 mg/dL 08/01/2018 Lipid Ord30 HDL 69.0 mg/dl 08/01/2018 Lipid Ord30 TRIG 57 mg/dL 08/01/2018 Lipid Ord30 LDL 154 mg/dL 08/01/2018 Lipid Ord30 C/HDL 3.4 Ratio 08/01/2018 Comp Metabolic Qss857 NA 137 mEq/L 09/30/2015 Comp Metabolic Pij500 K 4.5 mEq/L 09/30/2015 Comp Metabolic Phh606 CL 102 mEq/L 09/30/2015 Comp Metabolic Lvb034 CO2 26.0 mEq/L 09/30/2015 Comp Metabolic Jel088 AN ION GAP 14 09/30/2015 Comp Metabolic Hhw260 GL UCOSE 89 mg/dL 09/30/2015 Comp Metabolic Iae667 Cr eat 0.8 mg/dL 09/30/2015 Comp Metabolic Fgi357 eG FR 79 ml/min/1.73m2 09/29 Comp Metabolic Lrk688 BUN 14 mg/dL 09/30/2015 Comp Metabolic Aiw378 B/ C Ratio 18.2 Ratio 09/30/2015 Comp Metabolic Hrz019 CA LCIUM 8.9 mg/dL 09/30/2015 Comp Metabolic Oqp736 AL K PHOS 65 U/L 09/30/2015 Comp Metabolic Zcr349 T(SGOT) 26 U/L 09/30/2015 Comp Metabolic Kix571 AL T(SGPT) 18 U/L 09/30/2015 Comp Metabolic Qhx206 BI LI T 0.6 mg/dL 09/30/2015 Comp Metabolic Bva590 AL BUMIN 3.8 g/dL 09/30/2015 Comp Metabolic Qch362 TP RO 6.6 g/dL 09/30/2015 Comp Metabolic Zzp269 GL OB 2.8 g/dL 09/30/2015 Comp Metabolic Tyn299 A/ G Ratio 1.4 Ratio 09/30/2015 Comp Metabolic Kss533 Os mo 274 mOsmo 09/30/2015 Cbc With [...] 27.7 pg 09/30/2015 Cbc With Differential Ord2 [place]% 10.7 % 09/30/2015 Cbc With Differential Ord2 [...] 1.10 K/ul 09/30/2015 Cbc With Differential Ord2 [place] ABS# 0.6 K/ul 09/30/2015 Cbc With Differential Ord2 Eos ABS# 0.2 K/ul 09/30/2015 Cbc With Differential Ord2 Baso ABS# 0.0 K/ul 09/30/2015 Cbc With Differential Ord2 New Analyzer Notice Please note new ref ranges s tarting 08-07-2015 due to implemntation of new five part differential hematolgy analyzer. 09/30/2015 Tsh Ord6 hTSH II 1.05 uIU/mL 03/06/2015 Comp Metabolic Jgr376 NA 137 mEq/L 03/06/2015 Comp Metabolic Img119 K 4.3 mEq/L 03/06/2015 Comp Metabolic Jxk585 CL 104 mEq/L 03/06/2015 Comp Metabolic Ziq545 CO2 28.0 mEq/L 03/06/2015 Comp Metabolic Dve163 AN ION GAP 9 03/06/2015 Comp Metabolic Mwj321 GL UCOSE 93 mg/dL 03/06/2015 Comp Metabolic Vff039 Cr eat 0.8 mg/dL 03/06/2015 Comp Metabolic Kbb245 eG FR 81 ml/min/1.73m2 03/06 Comp Metabolic Jxj939 BUN 12 mg/dL 03/06/2015 Comp Metabolic Kpk856 B/ C Ratio 16.0 Ratio 03/06/2015 Comp Metabolic Syv418 CA LCIUM 8.9 mg/dL 03/06/2015 Comp Metabolic Eur105 AL K PHOS 56 U/L 03/06/2015 Comp Metabolic Vty513 T(SGOT) 22 U/L 03/06/2015 Comp Metabolic Sul588 AL T(SGPT) 15 U/L 03/06/2015 Comp Metabolic Tus023 BI LI T 0.4 mg/dL 03/06/2015 Comp Metabolic Wkk569 AL BUMIN 4.0 g/dL 03/06/2015 Comp Metabolic Fyp440 TP RO 6.5 g/dL 03/06/2015 Comp Metabolic Ism189 GL OB 2.5 g/dL 03/06/2015 Comp Metabolic Tss807 A/ G Ratio 1.6 Ratio 03/06/2015 Comp Metabolic Vik786 Os mo 273 mOsmo 03/06/2015 Vitamin D 25 Oh Ldm0902 VITAMIN D, 25 HYDROXY 28.14 ng/mL 03/06/2015 [...] Result Effective Dates Constitutional No recent illness 02/14/2019 Constitutional No [...] eyelid erythema 01/31/2019 Eyes No eyelid pain 0 03/2019 Eyes No photophobia 03/2019 Eyes No [...] Respiratory No chest tightness 04/20/2018 Respiratory dyspnea 09/12/2017 Respiratory pedal edema 04/20/2018 Gastrointestinal No abdominal [...] dentition 01/31/2019 None Full Exam - General 1994 [...] accomodation 10/13/2018 None Full Exam - General 1995 Ears/Nose/Throat otoscopic exam Overall: external auditory canals clear 10/13/2018 None Full Exam - General 1994 Ears/Nose/Throat otoscopic exam Overall: tympanic membranes clear 10/13/2018 None Full Exam - General 1995 Ears/Nose/Throat lips/teeth/gingiva Overall: benign lips 10/13/2018 None [...] dentition 09/15/2018 None Full Exam - General 1995 [...] General 1995 Eyes conjunctiva/eyelids Overall: conjunctiva clear 08/15/2018 None Full Exam - General 1995 Eyes conjunctiva/eyelids Overall: cornea clear 08/15/2018 None [...] Exam - ENT Respiratory auscultation Diffuse: diminished /10/2016 None Full Exam - General 1994 Constitutional [...] Date URINALYSIS NONAUTO W /O SCOPE CPT-4: 32392 01/31/2019 URINALYSIS NONAUTO W /O SCOPE CPT-4: 44068 01/12/2019 URINALYSIS NONAUTO W /O SCOPE CPT-4: 29977 12/06/2018 URINALYSIS NONAUTO W /O SCOPE CPT-4: 46695 11/15/2018 URINALYSIS NONAUTO W /O SCOPE CPT-4: 18291 08/18/2018 ADMIN INFLUENZA VIRU S VAC CPT-4: G0008 04/20/2018 FLU VACC PRSV FREE I NC ANTIG Formatting Model/CDA Sections, Assigned to/Amparo Mims CPT-4: [id number] 04/20/2018 PPPS, SUBSEQ VISIT CPT- 4: G0439 02/09/2018 PPPS, SUBSEQ VISIT CPT- 4: G0439 02/03/2017 ADMIN INFLUENZA VIRU S VAC CPT-4: G0008 04/08/2016 ADMIN PNEUMOCOCCAL V ACCINE SNOMED CT: [id number] CPT-4: G0009 04/08/2016 PNEUMOCOCCAL VACC [address]: [id number] CPT-4: 33070 04/08/2016 FLU VACC PRSV FREE I NC ANTIG CPT-4: 88807 04/08/2016 Vital Signs Date Vital 02/14/2019 Blood Pressure 1: 110/60 Code: 8480-6 BMI: 41.0 Code: 02521-5 Heart Rate 1: 81 bpm Height: 5'7" SpO2: 91% Weight: 262 lbs 01/31/2019 Blood Pressure 1: 120/56 Code: 8480-6 Heart Rate 1: 85 bpm Height: 5'7" SpO2: 96% Weight: 01/12/2019 Blood Pressure 1: 128/68 Code: 8480-6 BMI: 41.2 Code: 00607-8 Heart Rate 1: 82 bpm Height: 5'7" SpO2: 92% Weight: 263 lbs 12/06/2018 Blood Pressure 1: 118/70 Code: 8480-6 BMI: 41.5 Code: 25632-6 Heart Rate 1: 97 bpm Height: 5'7" SpO2: 96% Weight: 265 lbs 11/15/2018 Blood Pressure 1: 144/76 Code: 8480-6 BMI: 42.3 Code: 86808-3 Heart Rate 1: 82 bpm Height: 5'7" SpO2: 96% Weight: 270 lbs 10/25/2018 Blood Pressure 1: 128/80 Code: 8480-6 BMI: 42.0 Code: 72833-7 Heart Rate 1: 93 bpm Height: 5'7" SpO2: 95% Weight: 268 lbs 10/13/2018 Blood Pressure 1: 162/76 Code: 8480-6 BMI: 42.0 Code: 29629-3 Heart Rate 1: 71 bpm Height: 5'7" SpO2: 96% Weight: 268 lbs 09/15/2018 Blood Pressure 1: 154/86 Code: 8480-6 BMI: 42.9 Code: 87349-3 Heart Rate 1: 88 bpm Height: 5'7" SpO2: 94% Weight: 274 lbs 08/15/2018 Blood Pressure 1: 140/90 Code: 8480-6 BMI: 40.7 Code: 84872-7 Heart Rate 1: 70 bpm Height: 5'7" SpO2: 93% Weight: 260 lbs 08/01/2018 Blood Pressure 1: 130/70 Code: 8480-6 BMI: 40.7 Code: 21569-1 Heart Rate 1: 80 bpm Height: 5'7" SpO2: 93% Weight: 260 lbs 04/20/2018 Blood Pressure 1: 128/68 Code: 8480-6 BMI: 41.7 Code: 60134-9 Heart Rate 1: 85 bpm Height: 5'7" SpO2: 94% Weight: 266 lbs 02/09/2018 Blood Pressure 1: 118/70 Code: 8480-6 BMI: 42.1 Code: 18184-1 Heart Rate 1: 58 bpm Height: 5'7" SpO2: 94% Weight: 269 lbs 12/16/2017 Blood Pressure 1: 132/86 Code: 8480-6 BMI: 42.7 Code: 77605-9 Heart Rate 1: 63 bpm Height: 5'7" SpO2: 94% Weight: 272 lbs 14 o z 08/23/2017 Blood Pressure 1: 150/82 Code: 8480-6 BMI: 42.0 Code: 39063-4 Heart Rate 1: 66 bpm Height: 5'7" SpO2: 96% Weight: 268 lbs 02/03/2017 Blood Pressure 1: 138/72 Code: 8480-6 BMI: 41.2 Code: 56549-4 Heart Rate 1: 96 bpm Height: 5'7" SpO2: 97% Weight: 263 lbs 02/02/2017 Blood Pressure 1: 140/90 Code: 8480-6 BMI: 41.2 Code: 70378-8 Heart Rate 1: 103 bpm Height: 5'7" SpO2: 94% Weight: 263 lbs 11/26/2016 Blood Pressure 1: 152/88 Code: 8480-6 BMI: 41.0 Code: 14491-7 Heart Rate 1: 71 bpm Height: 5'7" SpO2: 94% Temperature: 37.7 (C ) / 99.8 (F) Weight: 262 lbs 10/07/2016 Blood Pressure 1: 148/82 Code: 8480-6 BMI: 41.7 Code: 25147-6 Heart Rate 1: 58 bpm Height: 5'7" SpO2: 96% Weight: 266 lbs 09/16/2016 Blood Pressure 1: 122/70 Code: 8480-6 BMI: 42.0 Code: 70036-4 Heart Rate 1: 65 bpm Height: 5'7" SpO2: 96% Weight: 268 lbs 09/07/2016 Blood Pressure 1: 154/60 Code: 8480-6 BMI: 42.3 Code: 06519-3 Heart Rate 1: 101 bpm Height: 5'7" SpO2: 97% Weight: 270 lbs 04/08/2016 Blood Pressure 1: 128/70 Code: 8480-6 BMI: 41.4 Code: 35776-6 Heart Rate 1: 62 bpm Height: 5'7" SpO2: 95% Weight: 264 lbs 8 oz 03/05/2016 Blood Pressure 1: 144/78 Code: 8480-6 Blood Pressure 1: 139/72 Code: 8480-6 BMI: 41.9 Code: 18913-5 Heart Rate 1: 71 bpm Height: 5'7" SpO2: 93% Weight: 267 lbs 8 oz 12/04/2015 Blood Pressure 1: 132/70 Code: 8480-6 BMI: 41.3 Code: 43961-1 Heart Rate 1: 56 bpm Height: 5'7" SpO2: 96% Weight: 264 lbs 11/18/2015 Blood Pressure 1: 138/72 Code: 8480-6 BMI: 41.0 Code: 19190-8 Heart Rate 1: 85 bpm Height: 5'7" SpO2: 93% Weight: 262 lbs 09/30/2015 Blood Pressure 1: 128/76 Code: 8480-6 BMI: 41.2 Code: 19451-4 Heart Rate 1: 70 bpm Height: 5'7" SpO2: 93% Weight: 263 lbs 09/09/2015 Blood Pressure 1: 138/80 Code: 8480-6 BMI: 40.3 Code: 48905-4 Heart Rate 1: 84 bpm Height: 5'7" SpO2: 95% Weight: 257 lbs 08/28/2015 Blood Pressure 1: 122/72 Code: 8480-6 BMI: 39.6 Code: 51867-4 Heart Rate 1: 75 bpm Height: 5'7" SpO2: 96% Weight: 253 lbs 07/09/2015 Blood Pressure 1: 140/78 Code: 8480-6 Blood Pressure 1: 135/78 Code: 8480-6 BMI: 39.5 Code: 28122-1 Heart Rate 1: 62 bpm Height: 5'7" SpO2: 95% Weight: 252 lbs 03/06/2015 Blood Pressure 1: 142/88 Code: 8480-6 BMI: 39.3 Code: 06891-2 Heart Rate 1: 65 bpm Height: 5'7" SpO2: 95% Weight: 251 lbs Functional Status No Functional Status data History of Present Illness Symptom Name Status Resu lt Effective Date Notes Location on both sides 02/14/2019 None Quality [...] 09/16/2016 None low back pain Quality ac [place] 09/16/2016 None low back pain Onset and [...] edema 04/08/2016 None rash Location-[facility] 04/08/2016 None rash Quality improving 04/08/2016 [...] Encounters Encounter Performer Loca tion Codes Date ([id number]) 05337 EST. P ATIENT, LEVEL III Diagnosis: Localized edema[ICD10: R60.0] Diagnosis: Lumbago with sciatica, right side[ICD10: M54.41] [facility] CPT-4: 52206 02/14/2019 95633 EST. PATIENT, LEVEL IV Diagnosis: Lumbago with sciatica, right side[ICD10: M54.41] Diagnosis: Dysuria[ICD10: R30.0] Diagnosis: Paroxysmal atrial fibrillation[ICD10: I48.0] Alis Spring MD, [facility] CPT-4: 55705 01/31/2019 ([id number]) 24812 EST. P ATIENT, LEVEL IV Diagnosis: Essential (primary) hypertension[ICD10: I10] Diagnosis: Chronic atrial fibrillation[ICD10: I48.2] Diagnosis: Localized edema[ICD10: R60.0] Diagnosis: Dysuria[ICD10: R30.0] Diagnosis: Low back pain[ICD10: M54.5] Diagnosis: Vitamin D deficiency, unspecified[ICD10: E55.9] Alis Spring MD, [facility] CPT-4: 93308 01/12/2019 ([id number]) 81185 EST. P ATIENT, LEVEL IV Diagnosis: Localized edema[ICD10: R60.0] Diagnosis: Dysuria[ICD10: R30.0] Diagnosis: Cellulitis of abdominal wall[ICD10: L03.311] Alis Spring MD, [facility] CPT-4: 63209 12/06/2018 ([id number]) 09476 EST. P ATIENT, LEVEL III Diagnosis: Dysuria[ICD10: R30.0] Diagnosis: Essential (primary) hypertension[ICD10: I10] Diagnosis: Major depressive disorder, recurrent, moderate[ICD10: F33.1] Alis Spring MD, [facility] CPT-4: 53348 11/15/2018 ([id number]) 08630 EST. P ATIENT, LEVEL IV Diagnosis: Eructation[ICD10: R14.2] Diagnosis: Nausea[ICD10: R11.0] Diagnosis: Chest pain, unspecified[ICD10: R07.9] Diagnosis: Diarrhea, unspecified[ICD10: R19.7] Alis Spring MD, [facility] CPT-4: 97666 10/25/2018 ([id number]) 29440 EST. P ATIENT, LEVEL IV Diagnosis: Essential (primary) hypertension[ICD10: I10] Diagnosis: Low back pain[ICD10: M54.5] Diagnosis: Major depressive disorder, recurrent, moderate[ICD10: F33.1] Alis Spring MD, [facility] CPT-4: 58487 10/13/2018 ([id number]) 61678 EST. P ATIENT, LEVEL IV Diagnosis: Essential (primary) hypertension[ICD10: I10] Diagnosis: Dysuria[ICD10: R30.0] Diagnosis: Low back pain[ICD10: M54.5] Alis Spring MD, [facility] CPT- 4: 48716 09/15/2018 ([id number]) 56523 EST. P ATIENT, LEVEL III Diagnosis: Essential (primary) hypertension[ICD10: I10] Diagnosis: Low back pain[ICD10: M54.5] Alis Spring MD, [facility] CPT- 4: 81221 08/15/2018 ([id number]) 84286 EST. P ATIENT, LEVEL III Diagnosis: Essential (primary) hypertension[ICD10: I10] Diagnosis: Cough[ICD10: R05] Diagnosis: Low back pain[ICD10: M54.5] Alis Spring MD, [facility] CPT- 4: 32694 08/01/2018 ([id number]) 00300 EST. P ATIENT, LEVEL IV Diagnosis: Encounter for immunization[ICD10: Z23] Diagnosis: Essential (primary) hypertension[ICD10: I10] Diagnosis: Chronic atrial fibrillation[ICD10: I48.2] Diagnosis: Major depressive disorder, recurrent, mild[ICD10: F33.0] Scarlett [facility] CPT-4: 15486 04/20/2018 ([id number]) 54579 EST. P ATIENT, LEVEL IV Diagnosis: Essential (primary) hypertension[ICD10: I10] Diagnosis: Obstructive sleep apnea (adult) (pediatric)[ICD10: G47.33] Diagnosis: Chronic atrial fibrillation[ICD10: I48.2] Scarlett [facility] CPT-4: 81200 12/16/2017 ([id number]) 93085 EST. P ATIENT, LEVEL IV Diagnosis: Essential (primary) hypertension[ICD10: I10] Diagnosis: Chronic atrial fibrillation[ICD10: I48.2] Scarlett Spring MD, [facility] CPT-4: 30436 08/23/2017 ([id number]) 51612 EST. P ATIENT, LEVEL IV Diagnosis: Paroxysmal atrial fibrillation[ICD10: I48.0] Diagnosis: Essential (primary) hypertension[ICD10: I10] Scarlett Spring MD, [facility] CPT-4: 32091 02/02/2017 85220 EST. PATIENT, LEVEL III Diagnosis: Acute laryngopharyngitis[ICD10: J06.0] Diagnosis: Cough[ICD10: R05] Diagnosis: Pleurodynia[ICD10: R07.81] Diagnosis: Other dorsalgia[ICD10: M54.89] Kassandra Spring MD, [facility] CPT-4: 37761 11/26/2016 ([id number]) 31460 EST. P ATIENT, LEVEL IV Diagnosis: Essential (primary) hypertension[ICD10: I10] Diagnosis: Pain in left knee[ICD10: M25.562] Diagnosis: Low back pain[ICD10: M54.5] Diagnosis: Major depressive disorder, recurrent, moderate[ICD10: F33.1] Scarlett Spring MD, [facility] CPT-4: 31615 10/07/2016 ([id number]) 62984 EST. P ATIENT, LEVEL IV Diagnosis: Essential (primary) hypertension[ICD10: I10] Diagnosis: Rash and other nonspecific skin eruption[ICD10: R21] Diagnosis: Major depressive disorder, recurrent, mild[ICD10: F33.0] Scarlett Spring MD, [facility] CPT-4: 22083 09/16/2016 92148 EST. PATIENT, LEVEL IV Diagnosis: Pain in left lower leg[ICD10: M79.662] Diagnosis: Pain in left knee[ICD10: M25.562] Kassandra Spring MD, [facility] CPT-4: 37430 09/07/2016 ([id number]) 46846 EST. P ATIENT, LEVEL IV Diagnosis: Encounter for immunization[ICD10: Z23] Diagnosis: Essential (primary) hypertension[ICD10: I10] Diagnosis: Mixed hyperlipidemia[ICD10: E78.2] Scarlett Spring MD, [facility] CPT- 4: 72530 04/08/2016 ([id number]) 73995 EST. P ATIENT, LEVEL III Diagnosis: Essential (primary) hypertension[ICD10: I10] Diagnosis: Shortness of breath[ICD10: R06.02] Scarlett Spring MD, [facility] CPT- 4: 21092 03/05/2016 ([id number]) 78689 EST. P ATIENT, LEVEL III Diagnosis: Chronic obstructive pulmonary disease, unspecified[ICD10: J44.9] Scarlett Spring MD, [facility] CPT-4: 37601 12/04/2015 ([id number]) 48199 EST. P ATIENT, LEVEL IV Diagnosis: Essential (primary) hypertension[ICD10: I10] Diagnosis: Allergic rhinitis due to pollen[ICD10: J30.1] Scarlett Spring MD, [facility] CPT-4: 33089 11/18/2015 ([id number]) 48082 EST. P ATIENT, LEVEL IV Diagnosis: Localized edema[ICD10: R60.0] Diagnosis: Dysuria[ICD10: R30.0] Diagnosis: Essential (primary) hypertension[ICD10: I10] Diagnosis: Nausea[ICD10: R11.0] Alis Spring MD, [facility] CPT-4: 05535 09/30/2015 ([id number]) 93145 EST. P ATIENT, LEVEL II Diagnosis: Methicillin susceptible Staphylococcus aureus infection as the cause of diseases classified elsewhere[ICD10: B95.61] Diagnosis: Methicillin susceptible Staphylococcus aureus infection, unspecified site[ICD10: A49.01] Alis Spring MD, [facility] CPT-4: 84932 09/09/2015 ([id number]) 75283 EST. P ATIENT, LEVEL III Diagnosis: Dermatophytosis, unspecified[ICD10: B35.9] Diagnosis: Rash and other nonspecific skin eruption[ICD10: R21] Scarlett [facility] CPT-4: 02486 08/28/2015 ([id number]) 90268 EST. P ATIENT, LEVEL IV Diagnosis: Essential (primary) hypertension[ICD10: I10] Diagnosis: Gastro-esophageal reflux disease without esophagitis[ICD10: K21.9] Diagnosis: Other dorsalgia[ICD10: M54.89] [facility] CPT-4: 73200 07/09/2015 ([id number]) [facility] - LEVEL 4 Diagnosis: ESSENTIAL HYPERTENSION[ICD9: 401.9] Diagnosis: Osteoporosis[ICD9: 733.00] Diagnosis: Back pain[ICD9: 724.5] Diagnosis: Insomnia[ICD9: 780.52] Diagnosis: ESOPHAGEAL REFLUX[ICD9: 530.81] [facility] CPT-4: 11962 03/06/2015 Plan of Care Planned Activity Notes C odes Status Date Visit Plan: Edema - pt has been [...] dose 02/14/2019 Appointment: Alis Muhammad WPtel: [facility] [place] [phone] (15 min) Moderate 02/14/2019 Patient Education: Patient [...] uncontrolled. 01/31/2019 Appointment: Alis Muhammad WPtel: [facility]7 [phone] (30 min) Complex 01/31/2019 Patient Education: Patient Medication Summary Completed 01/31/2019 Care Plan: Urine Culture Pending 01/31/2019 Care Plan: Referral Order SNOMED-CT : [id number] Pending 01/31/2019 Visit Plan: Hypertension - well [...] labs today 01/12/2019 Appointment: Alis Muhammad WPtel: [address] [place] [address] (30 min) Complex 01/12/2019 Patient Education: Patient Medication Summary Completed 01/12/2019 Patient Education: Back Pain Completed 01/12/2019 Appointment: Alis Muhammad WPtel: [address] [place] [address] (30 min) Complex 12/13/2018 Visit Plan: Edema [...] warmth, discharge. 12/06/2018 Appointment: Alis Muhammad WPtel: [address] [place], [place] [phone] [place] [address] (30 min) Complex 12/06/2018 Patient Education: Patient [...] indicated 11/15/2018 Appointment: Alis Muhammad WPtel: [phone] [place] [phone] (15 min) Moderate 11/15/2018 Patient Education: Patient [...] was evaluated in ER 10/25/2018 Appointment: Alis Muahmmad WPtel: [phone] [phone] (15 min) Moderate 10/25/2018 Patient Education: Patient [...] current treatment 10/13/2018 Appointment: Alis Muhammad WPtel: [phone] [phone] (15 min) Moderate 10/13/2018 Patient Education: Patient [...] Dysuria-check Ua 09/15/2018 Appointment: Alis Muhammad WPtel: [facility]3 [phone] (30 min) Complex 09/15/2018 Patient Education: [...] improve 08/15/2018 Appointment: Alis Muhammad WPtel[phone] (30 min) Complex 08/15/2018 Patient Education: Patient Medication Summary Completed 08/15/2018 Patient Education: Back Pain Completed 08/15/2018 Visit Plan: HTN-onofre induced cough-s top lisinopril -start losartan -monitor blood pressure and follow up in 2 weeks Low back pain-xray lumbar spine and refer for PT 08/01/2018 Appointment: Alis Muhammad WPtel: [phone] (15 min) Moderate 08/01/2018 Patient Education: Patient Medication Summary Completed 08/01/2018 Patient Education: Back Pain Completed 08/01/2018 Care Plan: X-RAY EXAM L-S SPINE 2/3 VWS LOINC : 79327-6 Pending 08/01/2018 Visit Plan: Hypertension - well [...] shot today. 04/20/2018 Appointment: [phone] (15 min) Moderate 04/20/2018 Patient Education: [...] surrogate. 02/09/2018 Appointment: Kassandra Argueta WPtel: [phone] - Annual Wellness Visit 02/09/2018 Patient [...] night. 12/16/2017 Appointment: Scarlett Spring WPtel: [facility]9 [facility] (15 min) Moderate 12/16/2017 Patient Education: [...] 08/23/2017 Appointment: Scarlett Spring WPtel: [phone] [facility] (15 min) Moderate 08/23/2017 Patient Education: Patient [...] to cardiology 02/03/2017 Appointment: Kassandra Argueta WPtel: [phone] [facility] [place] [address] - Annual Wellness Visit 02/03/2017 Patient Education: [...] home. 02/02/2017 Appointment: Scarlett Spring WPtel: [phone] [facility] (15 min) Moderate 02/02/2017 Patient Education: [...] improve. 11/26/2016 Appointment: Kassandra Argueta WPtel: [phone] [facility] (30 min) Complex 11/26/2016 Patient [...] symptoms. 10/07/2016 Appointment: Scarlett Spring WPtel: [phone] (15 min) Moderate 10/07/2016 Patient Education: Patient Medication Summary Completed 10/07/2016 Patient Education: Obesity Completed 10/07/2016 Patient Education: Hypertension Completed 10/07/2016 Care Plan: VASCULAR STUDY Pending 10/04/2016 Care Plan: X-RAY EXAM OF KNEE 3 [facility] : 88809-9 Pending 10/04/2016 Visit Plan: Hypertension - well [...] for paroxetine 09/16/2016 Appointment: Scarlett Spring WPtel: [phone] (15 min) Moderate 09/16/2016 Patient Education: Patient [...] improve. 09/07/2016 Appointment: [facility]gueta [phone] [place] (10 min) Simple 09/07/2016 Patient Education: [...] order 04/08/2016 Appointment: Scarlett Spring WPtel: [phone] [place] (15 min) Moderate 04/08/2016 Patient Education: [...] days. 03/05/2016 Appointment: Scarlett Spring WPtel: [phone] (15 min) Moderate 03/05/2016 Patient Education: Patient Medication Summary Completed 03/05/2016 Visit Plan: COPD - chronic problem for this patient. We have reviewed chronic treatment strategy, symptom control, and plans for acute exacerbations. No changes today to the current treatment plan as the patient is stable, monitor for acute changes. anoro samples given to the patient 12/04/2015 Appointment: Scarlett Spring WPtel: [phone] (15 min) Moderate 12/04/2015 Patient Education: Patient [...] spray. 11/18/2015 Appointment: Scarlett Spring WPtel: [phone] (15 min) Moderate 11/18/2015 Patient Education: Patient Medication Summary Completed 11/18/2015 Patient Education: Obesity Completed 11/18/2015 Patient Education: Hypertension Completed 11/18/2015 Appointment: Scarlett Spring WPtel: [facility]5 [facility] (15 min) Moderate 11/07/2015 Visit Plan: [...] Visit Plan: MSSA of groin and under omfmwdk-qospqhjef-febmum bactrim and call if rash does not completely resolve 09/09/2015 Appointment: (15 min) Moderate 09/09/2015 Patient Education: Patient Medication Summary Completed 09/09/2015 Visit Plan: Rash - dermatophytosis - recommended oral diflucan, topical nystatin cream, rtc in 10 days to assure healing. check of culture - may need to consider treatment with antibiotic depending on the groin culture report. 08/28/2015 Appointment: Scarlett Spring WPtel: [phone] [facility] (15 min) Moderate 08/28/2015 Patient Education: [...] Spring [facility]Ptel[phone] (15 min) Moderate 07/09/2015 Patient Education: Patient Medication Summary Completed 07/09/2015 Patient Education: Hypertension Completed 07/09/2015 Visit Plan: Hypertension - well con trojaceed - continue with current medications, continue with [...] not improving. 03/06/2015 Appointment: Scarlett Spring WPtel: [phone] [place] ([place] New Patient 03/06/2015 Patient Education: [...] will find out if anyone comes to [place] check UA start probiotic daily . Hypertension [...] depending on the groin culture report. . Hypertension - wel l controlled - [...] blood pressure readings at home. STOP LISINOPRIL -STA RT LOSARATAN 25MG DAILY [...]
[2020-01-23 14:07] VITALS: BP 113/57
--- OUTSIDE RECORDS SUMMARY | 2020-01-23 14:07 | XMS REPORT | CCD ---
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 Member Name Role Phone PP Unavailable CCM Unavailable Summary Purpose Interface Exchange Insurance Providers Payer name Policy type / Coverage type Covered libertarian ID Effective Begin Date Effective End Date WPS Medicare Part B Medicare Part B [id number] Unknown [facility] [place] Medicare Part B [id number] Unkn own Family history Mother Diagnosis Age At Onset Hypertension Unknown Heart Attack Unknown Brother Diagnosis Age At Onset Heart disease Unknown Runs in the family Diagnosis Age At Onset Heart disease Unknown Daughter Diagnosis Age At Onset Heart Attack Unknown Hyperlipidemia Unknown Hypertension Unknown Social History Social History Element Codes Description Effective Dates Number of children Unknown 2 daughter lives in [place], son - does not have contact 09/16/[address]: 2149009 Quit over 10 years ago 1990 - previously smoked 2ppd x 25 years. 11/18/2015 Marital status Unknown W idowed in 201003/06/2015 Employment Unknown Retir ed was a [employer] 03/06/2015 Allergies, Adverse Reactions, Alerts Substance Reaction [...] doxycycline hyclate 100 mg tablet,delayed release RxNorm: 120422 1 Tablet(s) PO BID 02/03/2019 02/02/2019 In active doxycycline hyclate 100 mg tablet,delayed release RxNorm: 787146 1 Tablet(s) PO BID an d probiotic bid 02/03/2019 02/09/2019 Inactive may use capsule if cheaper gabapentin 100 mg ca psule RxNorm: 316674 1 Capsule(s) PO TID 01/31/2019 04/30/2019 Active Ambien 10 mg tablet RxNorm: 883386 Tablet(s) TAKE ONE TABLET BY MOUTH AT BE DTIME NEEDED 01/20/2019 05/19/2019 Active Vitamin D2 50,000 un it capsule RxNorm: 4146553 1 Capsule(s) PO QW 01/18/2019 03/18/2019 Active Ambien 10 mg tablet RxNorm: 320216 Tablet(s) TAKE ONE TABLET BY MOUTH AT BE DTIME NEEDED 12/21/2018 04/18/2019 Active mupirocin 2 % topica l ointment RxNorm: 192042 1 Application TOP BID 12/06/2018 12/19/2018 Inactive doxycycline hyclate 100 mg tablet RxNorm: 0492226 1 Tablet(s) PO BID 11/21/2018 11/27/2018 Inactive can exchange for capsule if cheaper doxycycline hyclate 100 mg tablet RxNorm: 0855547 1 Tablet(s) PO BID 11/21/2018 11/20/2018 Inactive simethicone 125 mg c hewable tablet RxNorm: 636642 1 Tablet(s) PO qid pr n 10/25/2018 No Stop Date Active promethazine 25 mg t ablet RxNorm: 269692 1 Tablet(s) PO Q6 PRN 10/25/2018 No Stop Date Active paroxetine 40 mg tablet RxNorm: 3849669 1 Tablet(s) PO daily 10/13/2018 04/10/2019 Active valsartan 160 mg tablet RxNorm: 404534 1 Tablet(s) PO daily 10/13/2018 04/10/2019 Active terazosin 5 mg capsule RxNorm: 219063 TAKE ONE CAPSULE BY MOUTH DAILY 09/23/2018 02/19/2019 Ac tive trazodone 50 mg tablet RxNorm: 978098 TAKE ONE TABLET BY MOUTH DAILY 09/23/2018 03/21/2019 Ac tive Ambien 10 mg tablet RxNorm: 508118 TAKE ONE TABLET BY MOUTH AT BEDTIME N EEDED 09/23/2018 11/20/2018 Inactive losartan 50 mg tablet RxNorm: 844618 1 Tablet(s) PO daily 09/15/2018 10/12/2018 Inactive omeprazole 20 mg cap marina,delayed release RxNorm: 605586 TAKE ONE CAPSULE BY M OUTH EVERY NIGHT AT BEDTIME 09/12/2018 03/10/2019 Active Keflex 500 mg capsule RxNorm: 351699 1 Capsule(s) PO TID 08/18/2018 08/17/2018 Inactive Keflex 500 mg capsule RxNorm: 237361 1 Capsule(s) PO TID 08/18/2018 08/24/2018 Inactive take probiotic while on abx paroxetine 20 mg tablet RxNorm: 0584190 TAKE ONE TABLET BY MOUTH DAILY 08/12/2018 10/12/2018 In active losartan 25 mg tablet RxNorm: 882046 1 Tablet(s) PO daily 08/01/2018 09/14/2018 Inactive losartan 25 mg tablet RxNorm: 515295 1 Tablet(s) PO daily 08/01/2018 10/12/2018 Inactive trazodone 50 mg tablet RxNorm: 956275 TAKE ONE TABLET BY MOUTH DAILY 07/25/2018 09/22/2018 In active Ambien 10 mg tablet RxNorm: 917350 Tablet(s) TAKE ONE TABLET BY MOUTH AT BE DTIOH 06/24/2018 09/23/2018 Inactive trazodone 50 mg tablet RxNorm: 734182 TAKE ONE TABLET BY MOUTH DAILY 04/25/2018 07/23/2018 In active Ambien 10 mg tablet RxNorm: 647452 Tablet(s) TAKE ONE TABLET BY MOUTH AT BE DTIOH 03/23/2018 06/19/2018 Inactive terazosin 5 mg capsule RxNorm: 035245 TAKE ONE CAPSULE BY MOUTH DAILY 03/14/2018 09/09/2018 In active Ambien 10 mg tablet RxNorm: 875708 Tablet(s) TAKE ONE TABLET BY MOUTH AT BE DTIME 01/18/2018 09/14/2018 Inactive trazodone 50 mg tablet RxNorm: 287299 TAKE ONE TABLET BY MOUTH ONCE DAILY 01/10/2018 03/22/2018 In active trazodone 50 mg tablet RxNorm: 368587 Tablet(s) TAKE ONE TABLET BY MOUTH ONCE DAILY 01/10/2018 04/24/2018 Inactive Ambien 10 mg tablet RxNorm: 890506 Tablet(s) TAKE ONE TABLET BY MOUTH AT BE DTIME 10/22/2017 01/17/2018 Inactive trazodone 50 mg tablet RxNorm: 884814 TAKE ONE TABLET BY MOUTH ONCE DAILY 10/18/2017 01/09/2018 In active omeprazole 20 mg cap marina,delayed release RxNorm: 290703 TAKE ONE CAPSULE BY M OUTH ONCE DAILY AT BEDTIME 08/27/2017 09/11/2018 Inactive trazodone 50 mg tablet RxNorm: 168774 TAKE ONE TABLET BY MOUTH ONCE DAILY 08/18/2017 10/17/2017 In active Ambien 10 mg tablet RxNorm: 863987 Tablet(s) TAKE ONE TABLET BY MOUTH AT BE DTIOH 08/18/2017 03/22/2018 Inactive paroxetine 20 mg tablet RxNorm: 2596227 TAKE ONE TABLET BY MOUTH ONCE DAILY 07/27/2017 08/11/2018 In active Ambien 10 mg tablet RxNorm: 568739 Tablet(s) TAKE ONE TABLET BY MOUTH AT BE DTIOH 06/23/2017 03/22/2018 Inactive omeprazole 20 mg cap marina,delayed release RxNorm: 680198 TAKE ONE CAPSULE BY M OUTH ONCE DAILY AT BEDTIME 04/23/2017 08/20/2017 Inactive trazodone 50 mg tablet RxNorm: 997398 TAKE ONE TABLET BY MOUTH ONCE DAILY 04/13/2017 08/10/2017 In active terazosin 5 mg capsule RxNorm: 498280 Capsule(s) TAKE ONE CAPSULE BY MOUTH [facility] 04/08/2017 03/03/2018 In active Ambien 10 mg tablet RxNorm: 349386 Tablet(s) TAKE ONE TABLET BY MOUTH AT BE DTIOH 02/17/2017 03/22/2018 Inactive Tylenol-Codeine #3 3 00 mg-30 mg tablet RxNorm: 181202 1 Tablet(s) PO QID as needed 02/02/2017 11/14/2018 In active metoprolol succinate ER 50 mg tablet,extended release 24 hr RxNorm: 618477 TAKE ONE TABLET BY MOUTH ONCE DAILY 12/23/2016 02/02/2017 Inactive Zithromax Z-Ted 250 mg tablet RxNorm: 320879 1 Tablet(s) PO UD 11/26/2016 02/16/2017 Inactive trazodone 50 mg tablet RxNorm: 779792 TAKE ONE TABLET BY MOUTH ONCE DAILY 11/12/2016 03/11/2017 In active Ambien 10 mg tablet RxNorm: 291092 Tablet(s) TAKE ONE TABLET BY MOUTH AT DTIOH 10/22/2016 02/15/2017 Inactive paroxetine 20 mg tablet RxNorm: 2836978 1 Tablet(s) PO daily TAKE ONE TABLET BY MOUTH DAILY 09/16/2016 06/12/2017 Inactive meloxicam 7.5 mg tablet RxNorm: 101703 1 Tablet(s) PO daily 09/16/2016 11/14/2016 Inactive Protonix 40 mg table t,delayed release RxNorm: 586106 1 Tablet(s) PO daily 09/16/2016 08/22/2017 In active sucralfate 1 gram ta blet RxNorm: 839920 1 Tablet(s) PO TID 09/16/2016 08/22/2017 Inactive Ambien 10 mg tablet RxNorm: 884260 Tablet(s) TAKE ONE TABLET BY MOUTH AT [facility] 08/24/2016 03/22/2018 Inactive trazodone 50 mg tablet RxNorm: 454551 Tablet(s) TAKE ONE TABLET BY MOUTH DAILY 07/29/2016 11/11/2016 In active Ambien 10 mg tablet RxNorm: 026248 TAKE ONE TABLET BY MOUTH AT BEDTIME 06/23/2016 03/22/2018 In active Ambien 10 mg tablet RxNorm: 064938 Tablet(s) TAKE ONE TABLET BY MOUTH EVERY NIGHT AT BEDTIME 06/22/2016 06/23/2016 Inactive Lasix 40 mg tablet RxNorm: 475125 1 Tablet(s) PO daily as needed for swell ing 04/03/2016 09/15/2016 In active potassium chloride E R 20 mEq tablet,extended release RxNorm: 023446 1 Tablet(s) PO daily for swelling take with lasix as needed 04/03/2016 09/15/2016 Inactive Ambien 10 mg tablet RxNorm: 516527 Tablet(s) TAKE ONE TABLET BY MOUTH EVERY NIGHT AT BEDTIME 04/03/2016 03/22/2018 Inactive omeprazole 20 mg cap marina,delayed release RxNorm: 193705 TAKE ONE CAPSULE BY M OUTH EVERY NIGHT AT BEDTIME 03/31/2016 09/15/2016 Inactive paroxetine 20 mg tablet RxNorm: 1419157 TAKE ONE TABLET BY MOUTH DAILY 03/31/2016 09/15/2016 In active trazodone 50 mg tablet RxNorm: 182995 TAKE ONE TABLET BY MOUTH DAILY 03/20/2016 07/28/2016 In active terazosin 5 mg capsule RxNorm: 136088 TAKE ONE CAPSULE BY MOUTH DAILY 03/06/2016 10/06/2016 In active Ambien 10 mg tablet RxNorm: 934124 Tablet(s) TAKE ONE TABLET BY MOUTH EVERY NIGHT AT BEDTIME 01/17/2016 04/02/2016 Inactive loratadine 10 mg tablet RxNorm: 991113 1 Tablet(s) PO daily 01/15/2016 09/15/2016 Inactive mupirocin 2 % topica l ointment RxNorm: 041066 1 Application TOP TID 11/18/2015 12/01/2015 Inactive metoprolol succinate ER 50 mg tablet,extended release 24 hr RxNorm: 622999 1 Tablet(s) PO daily 11/18/2015 11/11/2016 Inactive loratadine 10 mg tablet RxNorm: 549498 1 Tablet(s) PO daily 11/18/2015 01/14/2016 Inactive Lasix 40 mg tablet RxNorm: 142986 1 Tablet(s) PO daily as needed for swell ing 10/30/2015 11/28/2015 In active potassium chloride E R 20 mEq tablet,extended release RxNorm: 335511 1 Tablet(s) PO daily for swelling take with lasix as needed 10/30/2015 11/28/2015 Inactive Tylenol-Codeine #3 3 00 mg-30 mg tablet RxNorm: 172776 1 Tablet(s) PO QID as needed 10/25/2015 02/01/2017 In active Ambien 10 mg tablet RxNorm: 048189 Tablet(s) TAKE ONE TABLET BY MOUTH EVERY NIGHT AT BEDTIME 10/18/2015 03/22/2018 Inactive Diflucan 150 mg tablet RxNorm: 792612 1 Tablet(s) PO daily 10/01/2015 12/03/2015 Inactive Lasix 20 mg tablet RxNorm: 378133 1 Tablet(s) PO PRN fror swelling 09/27/2015 10/29/2015 In active potassium chloride E R 10 mEq capsule,extended release RxNorm: 865724 1 Capsule(s) PO PRN for swelling take with lasix 09/27/2015 10/29/2015 Inactive Bactrim DS 800 mg-16 0 mg tablet RxNorm: 498470 1 Tablet(s) PO BID 09/02/2015 09/11/2015 Inactive Bactrim DS 800 mg-16 0 mg tablet RxNorm: 530877 1 Tablet(s) PO BID 09/02/2015 09/01/2015 Inactive nystatin 100,000 uni t/gram topical cream RxNorm: 427008 1 Gram(s) TOP TID 08/28/2015 09/26/2015 In active Diflucan 150 mg tablet RxNorm: 551418 1 Tablet(s) PO daily 08/28/2015 09/06/2015 Inactive betamethasone diprop ionate 0.05 % topical ointment RxNorm: 783568 1 Application TOP TID to affected area 08/02/2015 02/01/2017 Inactive nystatin 100,000 uni t/gram topical powder RxNorm: 843984 1 Gram(s) TOP QID 07/09/2015 08/01/2015 In active Ambien 10 mg tablet RxNorm: 705816 1 Tablet(s) PO QHS 06/19/2015 06/18/2015 Inactive Ambien 10 mg tablet RxNorm: 176289 TAKE ONE TABLET BY MOUTH EVERY NIGHT AT BEDTIME 06/19/2015 09/16/2015 Inactive Vitamin D2 50,000 un it capsule RxNorm: 999384 1 Capsule(s) PO QW 03/07/2015 03/06/2015 Inactive Vitamin D2 50,000 un it capsule RxNorm: 1453875 1 Capsule(s) PO QW 03/07/2015 05/05/2015 Inactive terazosin 5 mg capsule RxNorm: 740671 1 Capsule(s) PO daily 03/06/2015 02/28/2016 Inactive [SAVINGS FOR NON-COVERED DRUGS -- BIN:00 5515, PCN: [id number], Group: XXXXX, ID# [id number], Questions: . THIS IS NOT INSURANCE.] trazodone 50 mg tablet RxNorm: 613986 1 Tablet(s) PO daily 03/06/2015 02/28/2016 Inactive paroxetine 20 mg tablet RxNorm: 0290761 1 Tablet(s) PO daily 03/06/2015 02/28/2016 Inactive Tylenol-Codeine #3 3 00 mg-30 mg tablet RxNorm: 167975 1 Tablet(s) PO QID as needed 03/06/2015 07/02/2015 In active amlodipine 10 mg tablet RxNorm: 950948 1 Tablet(s) PO daily 03/06/2015 11/17/2015 Inactive metoprolol succinate ER 25 mg tablet,extended release 24 hr RxNorm: 887435 1 Tablet(s) PO daily 03/06/2015 11/17/2015 Inactive omeprazole 20 mg cap marina,delayed release RxNorm: 662067 1 Capsule(s) PO QHS 03/06/2015 02/28/2016 In active omeprazole 20 mg cap marina,delayed release RxNorm: 470841 1 Capsule(s) PO QHS 01/31/2015 01/30/2015 In active omeprazole 20 mg cap marina,delayed release RxNorm: 591666 1 Capsule(s) PO QHS 01/31/2015 01/30/2015 In active omeprazole 20 mg cap marina,delayed release RxNorm: 355189 1 Capsule(s) PO QHS 01/31/2015 03/05/2015 In active Ambien 10 mg tablet RxNorm: 012093 1 Tablet(s) PO QHS 12/25/2014 04/21/2015 Inactive paroxetine 20 mg tablet RxNorm: 793803 1 Tablet(s) PO daily 12/25/2014 12/24/2014 Inactive Ambien 10 mg tablet RxNorm: 113196 1 Tablet(s) PO QHS 12/25/2014 12/24/2014 Inactive paroxetine 20 mg tablet RxNorm: 248395 1 Tablet(s) PO daily 12/25/2014 03/05/2015 Inactive terazosin 5 mg capsule RxNorm: 289002 1 Capsule(s) PO daily 11/23/2014 03/05/2015 Inactive [SAVINGS FOR NON-COVERED DRUGS -- BIN:00 5235, PCN: ASPROD1, Group: XXXXX, ID# [id number], Questions: . THIS IS NOT INSURANCE.] terazosin 5 mg capsule RxNorm: 295388 1 Capsule(s) PO daily 11/23/2014 11/22/2014 Inactive Lasix 20 mg tablet RxNorm: 305643 1 Tablet(s) PO daily No Start Date Active K-Dur 10 mEq tablet, extended release RxNorm: 432835 1 Tablet(s) PO daily No Start Date Active Multaq 400 mg tablet RxNorm: 576244 oral No Start Date Active hydrochlorothiazide 25 mg tablet RxNorm: 895172 1 Tablet(s) PO daily No Start Date Active Vitamin D3 2,000 uni t tablet RxNorm: 356665 1 Tablet(s) PO daily No Start Date Active Zetia 10 mg tablet RxNorm: 881538 1 Tablet(s) PO daily No Start Date Active Lipitor 80 mg tablet RxNorm: 907884 1/2 Tablet(s) PO daily No Start Date Active Coumadin 4 mg tablet RxNorm: 113515 1 Tablet(s) PO daily No Start Date Active metoprolol succinate ER 25 mg tablet,extended release 24 hr RxNorm: 213827 1 Tablet(s) PO daily No Start Date 03/05/2015 Inactive Entresto 49 mg-51 mg tablet RxNorm: 0021854 1 Tablet(s) PO BID No Start Date 04/19/2018 Inactive sotalol 80 mg tablet RxNorm: 0224928 1 Tablet(s) PO BID No Start Date 04/19/2018 Inactive betamethasone diprop ionate 0.05 % topical ointment RxNorm: 127940 1 Application TOP TID to affected area No Start Date 08/01/2015 Inactive trazodone 50 mg tablet RxNorm: 040852 1 Tablet(s) PO daily No Start Date 03/05/2015 Inactive potassium chloride E R 10 mEq capsule,extended release RxNorm: 453650 1 Capsule(s) PO PRN for swelling take with lasix No Start Date 09/26/2015 Inactive Eliquis 5 mg tablet RxNorm: 0926639 1 Tablet(s) PO BID No Start Date 09/14/2018 Inactive amiodarone 200 mg ta blet RxNorm: 281545 1 Tablet(s) PO BID No Start Date 01/30/2019 Inactive amlodipine 10 mg tablet RxNorm: 952922 1 Tablet(s) PO daily No Start Date 03/05/2015 Inactive isosorbide mononitra te ER 30 mg tablet,extended release 24 hr RxNorm: 960485 1 Tablet(s) PO daily No Start Date 08/22/2017 Inactive aspirin 81 mg tablet ,delayed release RxNorm: 521258 1 Tablet(s) PO daily No Start Date 02/02/2017 Inactive Lasix 20 mg tablet RxNorm: 490449 1 Tablet(s) PO PRN fror swelling No Start Date 09/26/2015 Inactive lisinopril 5 mg tablet RxNorm: 187612 1 Tablet(s) PO daily No Start Date 07/31/2018 Inactive Crestor 40 mg tablet RxNorm: 001019 1 Tablet(s) PO daily No Start Date 09/15/2016 Inactive metoprolol succinate ER 100 mg tablet,extended release 24 hr RxNorm: 000415 1 Tablet(s) PO daily No Start Date [...] URIN E CULTURE See Note 02/03/2019 Pt [id number] PT 24.7 seconds 01/12/2019 Pt Fce2788 INR 2.3 01/12/2019 Pt Yvi7540 Low Intensity - 1.5-2.0 01/12/2019 Pt Jwt3331 Mod intensity - 2.0-3.0 01/12/2019 Pt Dmo8733 Hi intensity - 3.0-4.0 01/12/2019 Cbc With [...] 27.0 pg 01/12/2019 Cbc With Differential Ord2 [place]% 11.1 % 01/12/2019 Cbc With Differential Ord2 [...] 0.92 K/ul 01/12/2019 Cbc With Differential Ord2 [place] ABS# 0.4 K/ul 01/12/2019 Cbc With Differential Ord2 Eos ABS# 0.1 K/ul 01/12/2019 Cbc With Differential Ord2 Baso ABS# 0.0 K/ul 01/12/2019 Comp Metabolic Scb171 NA 141 mEq/L 01/12/2019 Comp Metabolic Hfa751 K 3.8 mEq/L 01/12/2019 Comp Metabolic Bcu648 CL 105 mEq/L 01/12/2019 Comp Metabolic Wky222 CO2 26.0 mEq/L 01/12/2019 Comp Metabolic Qvg169 AN ION GAP 14 01/12/2019 Comp Metabolic Phw223 GL UCOSE 112 mg/dL 01/12/2019 Comp Metabolic Hhf862 Cr eat 1.0 mg/dL 01/12/2019 Comp Metabolic Mwf865 eG FR 60 ml/min/1.73m2 01/12 Comp Metabolic Ppr115 BUN 14 mg/dL 01/12/2019 Comp Metabolic Onp010 B/ C Ratio 14.4 Ratio 01/12/2019 Comp Metabolic Wqc799 CA LCIUM 8.8 mg/dL 01/12/2019 Comp Metabolic Xpt955 AL K PHOS 60 U/L 01/12/2019 Comp Metabolic Brv653 T(SGOT) 22 U/L 01/12/2019 Comp Metabolic Fhd231 AL T(SGPT) 22 U/L 01/12/2019 Comp Metabolic Xmm132 BI LI T 0.5 mg/dL 01/12/2019 Comp Metabolic Rrp575 AL BUMIN 3.9 g/dL 01/12/2019 Comp Metabolic Oot332 TP RO 6.5 g/dL 01/12/2019 Comp Metabolic Kug300 GL OB 2.6 g/dL 01/12/2019 Comp Metabolic Rwf747 A/ G Ratio 1.5 Ratio 01/12/2019 Comp Metabolic Bqd495 Os mo 282 mOsmo 01/12/2019 Vitamin D 25 Oh Own6861 VITAMIN D, 25 HYDROXY 30.62 ng/mL 01/12/2019 Urine Culture Ucult Comp lete >100,000 col/ml aerobic grow th sent to ref lab 11/16/2018 Culture Urine [id number] URI NE CULTURE SEE NOTES 08/22/2018 Culture Urine [id number] Con tinued Results 08/22/2018 Urine Culture Ucult Comp lete >100,000 col/ml aerobic grow th sent to ref lab 08/19/2018 Comp Metabolic Voy439 NA 140 mEq/L 08/01/2018 Comp Metabolic Cmh520 K 4.2 mEq/L 08/01/2018 Comp Metabolic Tcw583 CL 102 mEq/L 08/01/2018 Comp Metabolic Evi940 CO2 27.0 mEq/L 08/01/2018 Comp Metabolic Cey753 AN ION GAP 15 08/01/2018 Comp Metabolic Dvd104 GL UCOSE 107 mg/dL 08/01/2018 Comp Metabolic Fht751 Cr eat 1.0 mg/dL 08/01/2018 Comp Metabolic Zrt033 eG FR 58 ml/min/1.73m2 08/01 Comp Metabolic Esq561 BUN 10 mg/dL 08/01/2018 Comp Metabolic Kan873 B/ C Ratio 10.0 Ratio 08/01/2018 Comp Metabolic Fvs936 CA LCIUM 8.9 mg/dL 08/01/2018 Comp Metabolic Ftm760 AL K PHOS 68 U/L 08/01/2018 Comp Metabolic Lau899 T(SGOT) 18 U/L 08/01/2018 Comp Metabolic Keg804 AL T(SGPT) 14 U/L 08/01/2018 Comp Metabolic Msy971 BI LI T 0.5 mg/dL 08/01/2018 Comp Metabolic Pwm601 AL BUMIN 4.0 g/dL 08/01/2018 Comp Metabolic Eai708 TP RO 6.3 g/dL 08/01/2018 Comp Metabolic Eqw019 GL OB 2.3 g/dL 08/01/2018 Comp Metabolic Gcc957 A/ G Ratio 1.7 Ratio 08/01/2018 Comp Metabolic Upl377 Os mo 279 mOsmo 08/01/2018 Tsh Ord6 [...] 27.3 pg 08/01/2018 Cbc With Differential Ord2 [place]% 9.8 % 08/01/2018 Cbc With Differential Ord2 [...] 0.79 K/ul 08/01/2018 Cbc With Differential Ord2 [place] ABS# 0.4 K/ul 08/01/2018 Cbc With Differential Ord2 Eos ABS# 0.1 K/ul 08/01/2018 Cbc With Differential Ord2 Baso ABS# 0.0 K/ul 08/01/2018 Lipid Ord30 CHOL 234 mg/dL 08/01/2018 Lipid Ord30 HDL 69.0 mg/dl 08/01/2018 Lipid Ord30 TRIG 57 mg/dL 08/01/2018 Lipid Ord30 LDL 154 mg/dL 08/01/2018 Lipid Ord30 C/HDL 3.4 Ratio 08/01/2018 Comp Metabolic Uly075 NA 137 mEq/L 09/30/2015 Comp Metabolic Dtu304 K 4.5 mEq/L 09/30/2015 Comp Metabolic Adl954 CL 102 mEq/L 09/30/2015 Comp Metabolic Dae626 CO2 26.0 mEq/L 09/30/2015 Comp Metabolic Vfq502 AN ION GAP 14 09/30/2015 Comp Metabolic Zuq152 GL UCOSE 89 mg/dL 09/30/2015 Comp Metabolic Rah116 Cr eat 0.8 mg/dL 09/30/2015 Comp Metabolic Wsd177 eG FR 79 ml/min/1.73m2 09/29 Comp Metabolic Gew724 BUN 14 mg/dL 09/30/2015 Comp Metabolic Huz201 B/ C Ratio 18.2 Ratio 09/30/2015 Comp Metabolic Jlj278 CA LCIUM 8.9 mg/dL 09/30/2015 Comp Metabolic Wel451 AL K PHOS 65 U/L 09/30/2015 Comp Metabolic Qoa698 T(SGOT) 26 U/L 09/30/2015 Comp Metabolic Qlz775 AL T(SGPT) 18 U/L 09/30/2015 Comp Metabolic Nxb183 BI LI T 0.6 mg/dL 09/30/2015 Comp Metabolic Ojn991 AL BUMIN 3.8 g/dL 09/30/2015 Comp Metabolic Pog185 TP RO 6.6 g/dL 09/30/2015 Comp Metabolic Puv498 GL OB 2.8 g/dL 09/30/2015 Comp Metabolic Pvs529 A/ G Ratio 1.4 Ratio 09/30/2015 Comp Metabolic Oux154 Os mo 274 mOsmo 09/30/2015 Cbc With [...] 27.7 pg 09/30/2015 Cbc With Differential Ord2 [place]% 10.7 % 09/30/2015 Cbc With Differential Ord2 [...] 1.10 K/ul 09/30/2015 Cbc With Differential Ord2 [place] ABS# 0.6 K/ul 09/30/2015 Cbc With Differential Ord2 Eos ABS# 0.2 K/ul 09/30/2015 Cbc With Differential Ord2 Baso ABS# 0.0 K/ul 09/30/2015 Cbc With Differential Ord2 New Analyzer Notice Please note new ref ranges s tarting 08-07-2015 due to implemntation of new five part differential hematolgy analyzer. 09/30/2015 Tsh Ord6 hTSH II 1.05 uIU/mL 03/06/2015 Comp Metabolic Cox971 NA 137 mEq/L 03/06/2015 Comp Metabolic Voq397 K 4.3 mEq/L 03/06/2015 Comp Metabolic Fwf952 CL 104 mEq/L 03/06/2015 Comp Metabolic Qcd588 CO2 28.0 mEq/L 03/06/2015 Comp Metabolic Qzi418 AN ION GAP 9 03/06/2015 Comp Metabolic Wha470 GL UCOSE 93 mg/dL 03/06/2015 Comp Metabolic Lpi070 Cr eat 0.8 mg/dL 03/06/2015 Comp Metabolic Oej498 eG FR 81 ml/min/1.73m2 03/06 Comp Metabolic Lhu695 BUN 12 mg/dL 03/06/2015 Comp Metabolic Xji179 B/ C Ratio 16.0 Ratio 03/06/2015 Comp Metabolic Sxu896 CA LCIUM 8.9 mg/dL 03/06/2015 Comp Metabolic Hrf598 AL K PHOS 56 U/L 03/06/2015 Comp Metabolic Jhp163 T(SGOT) 22 U/L 03/06/2015 Comp Metabolic Cmb114 AL T(SGPT) 15 U/L 03/06/2015 Comp Metabolic Hqc900 BI LI T 0.4 mg/dL 03/06/2015 Comp Metabolic Ago756 AL BUMIN 4.0 g/dL 03/06/2015 Comp Metabolic Mbn724 TP RO 6.5 g/dL 03/06/2015 Comp Metabolic Sot500 GL OB 2.5 g/dL 03/06/2015 Comp Metabolic Epr545 A/ G Ratio 1.6 Ratio 03/06/2015 Comp Metabolic Hny456 Os mo 273 mOsmo 03/06/2015 Vitamin D 25 Oh Jfm5612 VITAMIN D, 25 HYDROXY 28.14 ng/mL 03/06/2015 [...] Date URINALYSIS NONAUTO W /O SCOPE CPT-4: 73075 01/31/2019 URINALYSIS NONAUTO W /O SCOPE CPT-4: 88062 01/12/2019 URINALYSIS NONAUTO W /O SCOPE CPT-4: 58659 12/06/2018 URINALYSIS NONAUTO W /O SCOPE CPT-4: 15408 11/15/2018 URINALYSIS NONAUTO W /O SCOPE CPT-4: 18286 08/18/2018 ADMIN INFLUENZA VIRU S VAC CPT-4: G0008 04/20/2018 FLU VACC PRSV FREE I NC ANTIG Formatting Model/CDA Sections, Assigned to/Amparo Mims CPT-4: 61386Abfkxfb 04/20/2018 PPPS, SUBSEQ VISIT CPT- 4: G0439 02/09/2018 PPPS, SUBSEQ VISIT CPT- 4: G0439 02/03/2017 ADMIN INFLUENZA VIRU S VAC CPT-4: G0008 04/08/2016 ADMIN PNEUMOCOCCAL V ACCINE SNOMED CT: [id number] CPT-4: G0009 04/08/2016 PNEUMOCOCCAL VACC [address]: [id number] CPT-4: 44869 04/08/2016 FLU VACC PRSV FREE I NC ANTIG CPT-4: 54642 04/08/2016 Vital Signs Date Vital 02/14/2019 Blood Pressure 1: 110/60 Code: 8480-6 BMI: 41.0 Code: 90480-1 Heart Rate 1: 81 bpm Height: 5'7" SpO2: 91% Weight: 262 lbs 01/31/2019 Blood Pressure 1: 120/56 Code: 8480-6 Heart Rate 1: 85 bpm Height: 5'7" SpO2: 96% Weight: 01/12/2019 Blood Pressure 1: 128/68 Code: 8480-6 BMI: 41.2 Code: 82543-7 Heart Rate 1: 82 bpm Height: 5'7" SpO2: 92% Weight: 263 lbs 12/06/2018 Blood Pressure 1: 118/70 Code: 8480-6 BMI: 41.5 Code: 38852-2 Heart Rate 1: 97 bpm Height: 5'7" SpO2: 96% Weight: 265 lbs 11/15/2018 Blood Pressure 1: 144/76 Code: 8480-6 BMI: 42.3 Code: 41733-4 Heart Rate 1: 82 bpm Height: 5'7" SpO2: 96% Weight: 270 lbs 10/25/2018 Blood Pressure 1: 128/80 Code: 8480-6 BMI: 42.0 Code: 00571-7 Heart Rate 1: 93 bpm Height: 5'7" SpO2: 95% Weight: 268 lbs 10/13/2018 Blood Pressure 1: 162/76 Code: 8480-6 BMI: 42.0 Code: 83675-2 Heart Rate 1: 71 bpm Height: 5'7" SpO2: 96% Weight: 268 lbs 09/15/2018 Blood Pressure 1: 154/86 Code: 8480-6 BMI: 42.9 Code: 62467-3 Heart Rate 1: 88 bpm Height: 5'7" SpO2: 94% Weight: 274 lbs 08/15/2018 Blood Pressure 1: 140/90 Code: 8480-6 BMI: 40.7 Code: 33893-3 Heart Rate 1: 70 bpm Height: 5'7" SpO2: 93% Weight: 260 lbs 08/01/2018 Blood Pressure 1: 130/70 Code: 8480-6 BMI: 40.7 Code: 46722-2 Heart Rate 1: 80 bpm Height: 5'7" SpO2: 93% Weight: 260 lbs 04/20/2018 Blood Pressure 1: 128/68 Code: 8480-6 BMI: 41.7 Code: 76979-7 Heart Rate 1: 85 bpm Height: 5'7" SpO2: 94% Weight: 266 lbs 02/09/2018 Blood Pressure 1: 118/70 Code: 8480-6 BMI: 42.1 Code: 23312-5 Heart Rate 1: 58 bpm Height: 5'7" SpO2: 94% Weight: 269 lbs 12/16/2017 Blood Pressure 1: 132/86 Code: 8480-6 BMI: 42.7 Code: 44972-3 Heart Rate 1: 63 bpm Height: 5'7" SpO2: 94% Weight: 272 lbs 14 o z 08/23/2017 Blood Pressure 1: 150/82 Code: 8480-6 BMI: 42.0 Code: 33260-5 Heart Rate 1: 66 bpm Height: 5'7" SpO2: 96% Weight: 268 lbs 02/03/2017 Blood Pressure 1: 138/72 Code: 8480-6 BMI: 41.2 Code: 75037-5 Heart Rate 1: 96 bpm Height: 5'7" SpO2: 97% Weight: 263 lbs 02/02/2017 Blood Pressure 1: 140/90 Code: 8480-6 BMI: 41.2 Code: 75089-0 Heart Rate 1: 103 bpm Height: 5'7" SpO2: 94% Weight: 263 lbs 11/26/2016 Blood Pressure 1: 152/88 Code: 8480-6 BMI: 41.0 Code: 24933-5 Heart Rate 1: 71 bpm Height: 5'7" SpO2: 94% Temperature: 37.7 (C ) / 99.8 (F) Weight: 262 lbs 10/07/2016 Blood Pressure 1: 148/82 Code: 8480-6 BMI: 41.7 Code: 18670-3 Heart Rate 1: 58 bpm Height: 5'7" SpO2: 96% Weight: 266 lbs 09/16/2016 Blood Pressure 1: 122/70 Code: 8480-6 BMI: 42.0 Code: 55528-3 Heart Rate 1: 65 bpm Height: 5'7" SpO2: 96% Weight: 268 lbs 09/07/2016 Blood Pressure 1: 154/60 Code: 8480-6 BMI: 42.3 Code: 15751-6 Heart Rate 1: 101 bpm Height: 5'7" SpO2: 97% Weight: 270 lbs 04/08/2016 Blood Pressure 1: 128/70 Code: 8480-6 BMI: 41.4 Code: 03983-2 Heart Rate 1: 62 bpm Height: 5'7" SpO2: 95% Weight: 264 lbs 8 oz 03/05/2016 Blood Pressure 1: 144/78 Code: 8480-6 Blood Pressure 1: 139/72 Code: 8480-6 BMI: 41.9 Code: 25998-5 Heart Rate 1: 71 bpm Height: 5'7" SpO2: 93% Weight: 267 lbs 8 oz 12/04/2015 Blood Pressure 1: 132/70 Code: 8480-6 BMI: 41.3 Code: 92461-0 Heart Rate 1: 56 bpm Height: 5'7" SpO2: 96% Weight: 264 lbs 11/18/2015 Blood Pressure 1: 138/72 Code: 8480-6 BMI: 41.0 Code: 29278-1 Heart Rate 1: 85 bpm Height: 5'7" SpO2: 93% Weight: 262 lbs 09/30/2015 Blood Pressure 1: 128/76 Code: 8480-6 BMI: 41.2 Code: 16145-7 Heart Rate 1: 70 bpm Height: 5'7" SpO2: 93% Weight: 263 lbs 09/09/2015 Blood Pressure 1: 138/80 Code: 8480-6 BMI: 40.3 Code: 75998-4 Heart Rate 1: 84 bpm Height: 5'7" SpO2: 95% Weight: 257 lbs 08/28/2015 Blood Pressure 1: 122/72 Code: 8480-6 BMI: 39.6 Code: 04303-0 Heart Rate 1: 75 bpm Height: 5'7" SpO2: 96% Weight: 253 lbs 07/09/2015 Blood Pressure 1: 140/78 Code: 8480-6 Blood Pressure 1: 135/78 Code: 8480-6 BMI: 39.5 Code: 29226-5 Heart Rate 1: 62 bpm Height: 5'7" SpO2: 95% Weight: 252 lbs 03/06/2015 Blood Pressure 1: 142/88 Code: 8480-6 BMI: 39.3 Code: 98784-3 Heart Rate 1: 65 bpm Height: 5'7" [...] 09/16/2016 None low back pain Quality ac [place] 09/16/2016 None low back pain Onset and [...] edema 04/08/2016 None rash Location-[facility] area 04/08/2016 None rash Quality improving 04/08/2016 [...] Encounters Encounter Performer Loca tion Codes Date ([id number]) 01703 EST. P ATIENT, LEVEL III Diagnosis: Localized edema[ICD10: R60.0] Diagnosis: Lumbago with sciatica, right side[ICD10: M54.41] [facility] CPT-4: 21502 02/14/2019 19223 EST. PATIENT, LEVEL IV Diagnosis: Lumbago with sciatica, right side[ICD10: M54.41] Diagnosis: Dysuria[ICD10: R30.0] Diagnosis: Paroxysmal atrial fibrillation[ICD10: I48.0] Alis Spring MD, [facility] CPT-4: 44587 01/31/2019 ([id number]) 43378 EST. P ATIENT, LEVEL IV Diagnosis: Essential (primary) hypertension[ICD10: I10] Diagnosis: Chronic atrial fibrillation[ICD10: I48.2] Diagnosis: Localized edema[ICD10: R60.0] Diagnosis: Dysuria[ICD10: R30.0] Diagnosis: Low back pain[ICD10: M54.5] Diagnosis: Vitamin D deficiency, unspecified[ICD10: E55.9] Alis Spring MD, [facility] CPT-4: 24537 01/12/2019 ([id number]) 46781 EST. P ATIENT, LEVEL IV Diagnosis: Localized edema[ICD10: R60.0] Diagnosis: Dysuria[ICD10: R30.0] Diagnosis: Cellulitis of abdominal wall[ICD10: L03.311] Alis Spring MD, [facility] CPT-4: 61245 12/06/2018 ([id number]) 51686 EST. P ATIENT, LEVEL III Diagnosis: Dysuria[ICD10: R30.0] Diagnosis: Essential (primary) hypertension[ICD10: I10] Diagnosis: Major depressive disorder, recurrent, moderate[ICD10: F33.1] Alis Spring MD, [facility] CPT-4: 57817 11/15/2018 ([id number]) 02478 EST. P ATIENT, LEVEL IV Diagnosis: Eructation[ICD10: R14.2] Diagnosis: Nausea[ICD10: R11.0] Diagnosis: Chest pain, unspecified[ICD10: R07.9] Diagnosis: Diarrhea, unspecified[ICD10: R19.7] Alis Spring MD, [facility] CPT-4: 10488 10/25/2018 ([id number]) 81977 EST. P ATIENT, LEVEL IV Diagnosis: Essential (primary) hypertension[ICD10: I10] Diagnosis: Low back pain[ICD10: M54.5] Diagnosis: Major depressive disorder, recurrent, moderate[ICD10: F33.1] Alis Spring MD, [facility] CPT-4: 58219 10/13/2018 ([id number]) 03054 EST. P ATIENT, LEVEL IV Diagnosis: Essential (primary) hypertension[ICD10: I10] Diagnosis: Dysuria[ICD10: R30.0] Diagnosis: Low back pain[ICD10: M54.5] Alis Spring MD, [facility] CPT- 4: 95380 09/15/2018 ([id number]) 22441 EST. P ATIENT, LEVEL III Diagnosis: Essential (primary) hypertension[ICD10: I10] Diagnosis: Low back pain[ICD10: M54.5] Alis Spring MD, [facility] CPT- 4: 52489 08/15/2018 ([id number]) 11052 EST. P ATIENT, LEVEL III Diagnosis: Essential (primary) hypertension[ICD10: I10] Diagnosis: Cough[ICD10: R05] Diagnosis: Low back pain[ICD10: M54.5] Alis Spring MD, [facility] CPT- 4: 59980 08/01/2018 ([id number]) 27475 EST. P ATIENT, LEVEL IV Diagnosis: Encounter for immunization[ICD10: Z23] Diagnosis: Essential (primary) hypertension[ICD10: I10] Diagnosis: Chronic atrial fibrillation[ICD10: I48.2] Diagnosis: Major depressive disorder, recurrent, mild[ICD10: F33.0] Scarlett Spring MD[facility] CPT-4: 91124 04/20/2018 ([id number]) 59606 EST. P ATIENT, LEVEL IV Diagnosis: Essential (primary) hypertension[ICD10: I10] Diagnosis: Obstructive sleep apnea (adult) (pediatric)[ICD10: G47.33] Diagnosis: Chronic atrial fibrillation[ICD10: I48.2] Scarlett Spring MD[facility] CPT-4: 29097 12/16/2017 ([id number]) 99028 EST. P ATIENT, LEVEL IV Diagnosis: Essential (primary) hypertension[ICD10: I10] Diagnosis: Chronic atrial fibrillation[ICD10: I48.2] Scarlett Spring MD, [facility] CPT-4: 81086 08/23/2017 ([id number]) 97219 EST. P ATIENT, LEVEL IV Diagnosis: Paroxysmal atrial fibrillation[ICD10: I48.0] Diagnosis: Essential (primary) hypertension[ICD10: I10] Scarlett Spring MD, [facility] CPT-4: 17273 02/02/2017 59391 EST. PATIENT, LEVEL III Diagnosis: Acute laryngopharyngitis[ICD10: J06.0] Diagnosis: Cough[ICD10: R05] Diagnosis: Pleurodynia[ICD10: R07.81] Diagnosis: Other dorsalgia[ICD10: M54.89] Kassandra Spring MD, [facility] CPT-4: 12551 11/26/2016 ([id number]) 20253 EST. P ATIENT, LEVEL IV Diagnosis: Essential (primary) hypertension[ICD10: I10] Diagnosis: Pain in left knee[ICD10: M25.562] Diagnosis: Low back pain[ICD10: M54.5] Diagnosis: Major depressive disorder, recurrent, moderate[ICD10: F33.1] Scarlett Spring MD, [facility] CPT-4: 48075 10/07/2016 ([id number]) 23771 EST. P ATIENT, LEVEL IV Diagnosis: Essential (primary) hypertension[ICD10: I10] Diagnosis: Rash and other nonspecific skin eruption[ICD10: R21] Diagnosis: Major depressive disorder, recurrent, mild[ICD10: F33.0] Scarlett Spring MD, [facility] CPT-4: 65189 09/16/2016 15411 EST. PATIENT, LEVEL IV Diagnosis: Pain in left lower leg[ICD10: M79.662] Diagnosis: Pain in left knee[ICD10: M25.562] Kassandra Spring MD, [facility] CPT-4: 28477 09/07/2016 ([id number]) 23320 EST. P ATIENT, LEVEL IV Diagnosis: Encounter for immunization[ICD10: Z23] Diagnosis: Essential (primary) hypertension[ICD10: I10] Diagnosis: Mixed hyperlipidemia[ICD10: E78.2] Scarlett Spring MD, [facility] CPT- 4: 13325 04/08/2016 ([id number]) 87801 EST. P ATIENT, LEVEL III Diagnosis: Essential (primary) hypertension[ICD10: I10] Diagnosis: Shortness of breath[ICD10: R06.02] Scarlett Spring MD, [facility] CPT- 4: 52595 03/05/2016 ([id number]) 30988 EST. P ATIENT, LEVEL III Diagnosis: Chronic obstructive pulmonary disease, unspecified[ICD10: J44.9] Scarlett Spring MD, [facility] CPT-4: 58008 12/04/2015 ([id number]) 94405 EST. P ATIENT, LEVEL IV Diagnosis: Essential (primary) hypertension[ICD10: I10] Diagnosis: Allergic rhinitis due to pollen[ICD10: J30.1] Scarlett Spring MD, [facility] CPT-4: 64361 11/18/2015 ([id number]) 20348 EST. P ATIENT, LEVEL IV Diagnosis: Localized edema[ICD10: R60.0] Diagnosis: Dysuria[ICD10: R30.0] Diagnosis: Essential (primary) hypertension[ICD10: I10] Diagnosis: Nausea[ICD10: R11.0] Alis Spring MD, [facility] CPT-4: 79392 09/30/2015 ([id number]) 22863 EST. P ATIENT, LEVEL II Diagnosis: Methicillin susceptible Staphylococcus aureus infection as the cause of diseases classified elsewhere[ICD10: B95.61] Diagnosis: Methicillin susceptible Staphylococcus aureus infection, unspecified site[ICD10: A49.01] Alis Spring MD, [facility] CPT-4: 69240 09/09/2015 ([id number]) 89667 EST. P ATIENT, LEVEL III Diagnosis: Dermatophytosis, unspecified[ICD10: B35.9] Diagnosis: Rash and other nonspecific skin eruption[ICD10: R21] Scarlett Spring MD[facility] CPT-4: 22277 08/28/2015 ([id number]) 08295 EST. P ATIENT, LEVEL IV Diagnosis: Essential (primary) hypertension[ICD10: I10] Diagnosis: Gastro-esophageal reflux disease without esophagitis[ICD10: K21.9] Diagnosis: Other dorsalgia[ICD10: M54.89] [facility] CPT-4: 67128 07/09/2015 ([id number]) OFFICE VISI , [facility] - LEVEL 4 Diagnosis: ESSENTIAL HYPERTENSION[ICD9: 401.9] Diagnosis: Osteoporosis[ICD9: 733.00] Diagnosis: Back pain[ICD9: 724.5] Diagnosis: Insomnia[ICD9: 780.52] Diagnosis: ESOPHAGEAL REFLUX[ICD9: 530.81] [facility] CPT-4: 14361 03/06/2015 Plan of Care Planned Activity Notes [...] with gabapentin - continue current dose 02/14/2019 Patient Education: Patient Medication Summary Completed [...] becoming uncontrolled. 01/31/2019 Appointment: Alis Muhammad WPtel: [address] [place], [place] [phone] (30 min) [facility] 01/31/2019 Patient Education: Patient Medication Summary Completed 01/31/2019 Care Plan: Urine Culture Pending 01/31/2019 Care Plan: Referral Order SNOMED-CT : [id number] Pending 01/31/2019 Visit Plan: Hypertension - well [...] labs today 01/12/2019 Appointment: Alis Muhammad WPtel: [address] [place] [address] (30 min) Complex 01/12/2019 Patient Education: Patient Medication Summary Completed 01/12/2019 Patient Education: Back Pain Completed 01/12/2019 Appointment: Alis Muhammad WPtel: [address] [place] [address] (30 min) Complex 12/13/2018 Visit Plan: Edema [...] warmth, discharge. 12/06/2018 Appointment: Alis Muhammad WPtel: [address] [place] [address] (30 min) Complex 12/06/2018 Patient Education: Patient [...] indicated 11/15/2018 Appointment: Alis Muhammad WPtel: [phone] [phone] (15 min) Moderate 11/15/2018 Patient Education: Patient [...] ER 10/25/2018 Appointment: Alis Muhammad WPtel: [phone] [phone] (15 min) Moderate 10/25/2018 Patient Education: Patient [...] treatment 10/13/2018 Appointment: Alis Muhammad WPtel: [phone] [phone] (15 min) Moderate 10/13/2018 Patient Education: Patient [...] Dysuria-check Ua 09/15/2018 Appointment: Alis Muhammad WPtel: [address] [place] [address] (30 min) Complex 09/15/2018 Patient Education: Patient [...] not improve 08/15/2018 Appointment: Alis Muhammad WPtel: [address] [place] [address] (30 min) Complex 08/15/2018 Patient Education: Patient Medication Summary Completed 08/15/2018 Patient Education: Back Pain Completed 08/15/2018 Visit Plan: HTN-onofre induced cough-s top lisinopril -start losartan -monitor blood pressure and follow up in 2 weeks Low back pain-xray lumbar spine and refer for PT 08/01/2018 Appointment: Alis Muhammad WPtel: [phone] (15 min) Moderate 08/01/2018 Patient Education: Patient Medication Summary Completed 08/01/2018 Patient Education: Back Pain Completed 08/01/2018 Care Plan: X-RAY EXAM L-S SPINE 2/3 VWS LOINC : 19298-0 Pending 08/01/2018 Visit Plan: Hypertension - well con sedricked - continue with current medications, continue with [...] shot today. 04/20/2018 Appointment: Scarlett Spring WPtel: [address] [place], [place] [address] (15 min) Moderate 04/20/2018 Patient Education: Patient [...] WPtel: [phone] [id number] [place] [address] - Annual Wellness Visit 02/09/2018 Patient Education: [...] every night. 12/16/2017 Appointment: Scarlett Spring WPtel: [facility]7 [facility]66[facility] (15 min) Moderate 12/16/2017 Patient [...] uncontrolled. 08/23/2017 Appointment: Scarlett Spring WPtel: [phone] [facility] (15 min) Moderate 08/23/2017 Patient Education: [...] cardiology 02/03/2017 Appointment: Kassandra Argueta WPtel: [phone] [facility] [facility] - Annual Wellness Visit 02/03/2017 Patient [...] home. 02/02/2017 Appointment: Scarlett Spring WPtel: [phone] [facility] (15 min) Moderate 02/02/2017 Patient Education: [...] not improve. 11/26/2016 Appointment: Kassandra Argueta WPtel: [facility]4 [phone] (30 [...] pain symptoms. 10/07/2016 Appointment: Scarlett Spring WPtel: [facility] (15 min) Moderate 10/07/2016 Patient Education: Patient Medication Summary Completed 10/07/2016 Patient Education: Obesity Completed 10/07/2016 Patient Education: Hypertension Completed 10/07/2016 Care Plan: VASCULAR STUDY Pending 10/04/2016 Care Plan: X-RAY EXAM OF KNEE 3 [facility] : 44489-0 Pending 10/04/2016 Visit Plan: Hypertension - well [...] for paroxetine 09/16/2016 Appointment: Scarlett Spring WPtel: [facility]6 [facility] (15 min) Moderate 09/16/2016 Patient Education: Patient [...] improve. 09/07/2016 Appointment: [phone] [place] (10 min) Simple 09/07/2016 [...] 04/08/2016 [facility]ment[phone] (15 min) Moderate 04/08/2016 Patient [...] 10 days. 03/05/2016 Appointment: Scarlett Spring WPtel: [facility] (15 min) Moderate 03/05/2016 Patient [...] 12/04/2015 App[facility]ment: [facility] Spring [facility]el[phone] [facility] (15 min) Moderate 12/04/2015 Patient [...] allergy spray. 11/18/2015 Appointment: Scarlett Spring WPtel: [facility] (15 min) Moderate 11/18/2015 Patient Education: Patient Medication Summary Completed 11/18/2015 Patient Education: Obesity Completed 11/18/2015 Patient Education: Hypertension Completed 11/18/2015 Appointment: Scareltt Spring [facility]Ptel[phone] [facility] (15 min) Moderate 11/07/2015 Visit Plan: Hypertension [...] Visit Plan: MSSA of groin and under licroee-orcvnkalq-ztgfnl bactrim and call if rash does not completely resolve 09/09/2015 Appointment: (15 min) Moderate 09/09/2015 Patient Education: Patient Medication Summary Completed 09/09/2015 Visit Plan: Rash - dermatophytosis - recommended oral diflucan, topical nystatin cream, rtc in 10 days to assure healing. check of culture - may need to consider treatment with antibiotic depending on the groin culture report. 08/28/2015 Appointment: Scarlett Spring [facility]Ptel[phone] [facility] (15 min) Moderate 08/28/2015 Patient [...] 07/09/2015 Appointment: Scar[facility] Spring [facility]Ptel[phone] (15 min) Moderate 07/09/2015 Patient [...] 03/06/2015 Appointment: Scar[facility] Spring [facility]Ptel[phone] [facility] [place] ([place] New Patient 03/06/2015 [...] will find out if [place] to [place] check UA start probiotic daily . Hypertension [...] spine and refer for PT . Atrial fibrillatio n - appt with [...]
--- OUTSIDE RECORDS SUMMARY | 2020-01-23 14:09 | XMS REPORT | CCD ---
Author Author Jeannine Spring Organization Scarlett Spring MD, [facility] Address [address] [place] [address] Phone Care Team Providers Care Unload Associate Name Role Phone PP Unavailable CCM Unavailable Summary Purpose Interface Exchange Insurance Providers Payer name Policy type / Coverage type Covered green party ID Effective Begin Date Effective End Date WPS Medicare Part B Medicare Part B [id number] Unknown [place] [employer] / [employer] Medicare Part B [id number] Unkn own Family history Mother Diagnosis Age At Onset Hypertension Unknown Heart Attack Unknown Brother Diagnosis Age At Onset Heart disease Unknown Runs in the family Diagnosis Age At Onset Heart disease Unknown Daughter Diagnosis Age At Onset Heart Attack Unknown Hyperlipidemia Unknown Hypertension Unknown Social History Social History Element Codes Description Effective Dates Number of children Unknown 2 daughter [place], son - does not have contact 09/16/[address]: 7589794 Quit over 10 years ago 1990 - previously smoked 2ppd x 25 years. 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 Allergies, Adverse Reactions, Alerts Substance Reaction Codes Entered Date Inactivated Date Status * NO KNOWN FOOD MYRNA RGIES Unknown 03/06/2015 No Inactive Date Active Iodine RxNorm: 5933 03/06/2015 No Inactive Date Active Penicillin Unknown 03/06/2015 No In active Date Active Past Medical History Illness Codes Condition Status Onset Date Resolved Date Chronic atrial fibri llation ICD-9: 427.31 ICD-10: I48.2 Active 08/23/2017 Unknown Dysuria ICD-9: 788.1 ICD-10: R30.0 Active 09/29/2015 Unknown Essential (primary) hypertension ICD-9: 401.1 ICD-10: I10 Active 12/16/2017 Unknown Localized edema ICD-9: 782.3 ICD-10: R60.0 Active 09/29/2015 Unknown Low back pain ICD-9: 724.2 ICD-10: [...] ICD-10: G47.33 Active 12/16/2017 Unknown Paroxysmal atrial fi brillation ICD-9: 427.31 ICD-10: I48.0 Active 02/02/2017 Unknown Acute laryngopharyng itis ICD-9: 465.0 ICD-10: [...] Condition Codes Effectiv e Dates Condition Status Chronic atrial fibri llation ICD-9: 427.31 ICD-10: I48.2 08/23/2017 Active Dysuria ICD-9: 788.1 ICD-10: R30.0 09/29/2015 Active Essential (primary) hypertension ICD-9: 401.1 ICD-10: I10 12/16/2017 Active Localized edema ICD-9: 782.3 ICD-10: R60.0 09/29/2015 Active Low back pain ICD-9: 724.2 ICD-10: [...] 327.23 ICD-10: G47.33 12/16/2017 Active Paroxysmal atrial fi brillation ICD-9: 427.31 ICD-10: I48.0 02/02/2017 Active Acute laryngopharyng itis ICD-9: 465.0 ICD-10: [...] Date Stop Date Sta tus Fill Instructions Ambien 10 mg tablet RxNorm: 572134 Tablet(s) TAKE ONE TABLET BY MOUTH AT BE DTIME NEEDED 01/20/2019 05/19/2019 Active Vitamin D2 50,000 un it capsule RxNorm: 0043308 1 Capsule(s) PO QW 01/18/2019 03/18/2019 Active Ambien 10 mg tablet RxNorm: 084769 Tablet(s) TAKE ONE TABLET BY MOUTH AT BE DTIME NEEDED 12/21/2018 01/19/2019 Inactive mupirocin 2 % topica l ointment RxNorm: 123798 1 Application TOP BID 12/06/2018 12/19/2018 Inactive doxycycline hyclate 100 mg tablet RxNorm: 6427532 1 Tablet(s) PO BID 11/21/2018 11/27/2018 Inactive can exchange for capsule if cheaper doxycycline hyclate 100 mg tablet RxNorm: 5245173 1 Tablet(s) PO BID 11/21/2018 11/20/2018 Inactive simethicone 125 mg c hewable tablet RxNorm: 534169 1 Tablet(s) PO qid pr n 10/25/2018 No Stop Date Active promethazine 25 mg t ablet RxNorm: 309622 1 Tablet(s) PO Q6 PRN 10/25/2018 No Stop Date Active paroxetine 40 mg tablet RxNorm: 0832511 1 Tablet(s) PO daily 10/13/2018 04/10/2019 Active valsartan 160 mg tablet RxNorm: 651785 1 Tablet(s) PO daily 10/13/2018 04/10/2019 Active terazosin 5 mg capsule RxNorm: 225980 TAKE ONE CAPSULE BY MOUTH DAILY 09/23/2018 02/19/2019 Ac tive trazodone 50 mg tablet RxNorm: 112191 TAKE ONE TABLET BY MOUTH DAILY 09/23/2018 03/21/2019 Ac tive Ambien 10 mg tablet RxNorm: 360301 TAKE ONE TABLET BY MOUTH AT BEDTIME N EEDED 09/23/2018 11/20/2018 Inactive losartan 50 mg tablet RxNorm: 472067 1 Tablet(s) PO daily 09/15/2018 10/12/2018 Inactive omeprazole 20 mg cap marina,delayed release RxNorm: 471730 TAKE ONE CAPSULE BY M OUTH EVERY NIGHT AT BEDTIME 09/12/2018 03/10/2019 Active Keflex 500 mg capsule RxNorm: 217059 1 Capsule(s) PO TID 08/18/2018 08/17/2018 Inactive Keflex 500 mg capsule RxNorm: 356742 1 Capsule(s) PO TID 08/18/2018 08/24/2018 Inactive take probiotic while on abx paroxetine 20 mg tablet RxNorm: 2188108 TAKE ONE TABLET BY MOUTH DAILY 08/12/2018 10/12/2018 In active losartan 25 mg tablet RxNorm: 718857 1 Tablet(s) PO daily 08/01/2018 09/14/2018 Inactive losartan 25 mg tablet RxNorm: 884563 1 Tablet(s) PO daily 08/01/2018 10/12/2018 Inactive trazodone 50 mg tablet RxNorm: 740262 TAKE ONE TABLET BY MOUTH DAILY 07/25/2018 09/22/2018 In active Ambien 10 mg tablet RxNorm: 559911 Tablet(s) TAKE ONE TABLET BY MOUTH AT BE DTICO 06/24/2018 09/23/2018 Inactive trazodone 50 mg tablet RxNorm: 724171 TAKE ONE TABLET BY MOUTH DAILY 04/25/2018 07/23/2018 In active Ambien 10 mg tablet RxNorm: 710431 Tablet(s) TAKE ONE TABLET BY MOUTH AT BE DTICO 03/23/2018 06/19/2018 Inactive terazosin 5 mg capsule RxNorm: 847116 TAKE ONE CAPSULE BY MOUTH DAILY 03/14/2018 09/09/2018 In active Ambien 10 mg tablet RxNorm: 405601 Tablet(s) TAKE ONE TABLET BY MOUTH AT BE DTIME 01/18/2018 09/14/2018 Inactive trazodone 50 mg tablet RxNorm: 659151 TAKE ONE TABLET BY MOUTH ONCE DAILY 01/10/2018 03/22/2018 In active trazodone 50 mg tablet RxNorm: 292847 Tablet(s) TAKE ONE TABLET BY MOUTH ONCE DAILY 01/10/2018 04/24/2018 Inactive Ambien 10 mg tablet RxNorm: 818304 Tablet(s) TAKE ONE TABLET BY MOUTH AT BE DTIME 10/22/2017 01/17/2018 Inactive trazodone 50 mg tablet RxNorm: 333396 TAKE ONE TABLET BY MOUTH ONCE DAILY 10/18/2017 01/09/2018 In active omeprazole 20 mg cap marina,delayed release RxNorm: 882776 TAKE ONE CAPSULE BY M OUTH ONCE DAILY AT BEDTIME 08/27/2017 09/11/2018 Inactive trazodone 50 mg tablet RxNorm: 079407 TAKE ONE TABLET BY MOUTH ONCE DAILY 08/18/2017 10/17/2017 In active Ambien 10 mg tablet RxNorm: 009091 Tablet(s) TAKE ONE TABLET BY MOUTH AT BE DTICO 08/18/2017 03/22/2018 Inactive paroxetine 20 mg tablet RxNorm: 2814706 TAKE ONE TABLET BY MOUTH ONCE DAILY 07/27/2017 08/11/2018 In active Ambien 10 mg tablet RxNorm: 385799 Tablet(s) TAKE ONE TABLET BY MOUTH AT BE DTICO 06/23/2017 03/22/2018 Inactive omeprazole 20 mg cap marina,delayed release RxNorm: 847878 TAKE ONE CAPSULE BY M OUTH ONCE DAILY AT BEDTIME 04/23/2017 08/20/2017 Inactive trazodone 50 mg tablet RxNorm: 981543 TAKE ONE TABLET BY MOUTH ONCE DAILY 04/13/2017 08/10/2017 In active terazosin 5 mg capsule RxNorm: 478913 Capsule(s) TAKE ONE CAPSULE BY MOUTH TATA 04/08/2017 03/03/2018 In active Ambien 10 mg tablet RxNorm: 635118 Tablet(s) TAKE ONE TABLET BY MOUTH AT BE DTICO 02/17/2017 03/22/2018 Inactive Tylenol-Codeine #3 3 00 mg-30 mg tablet RxNorm: 900017 1 Tablet(s) PO QID as needed 02/02/2017 11/14/2018 In active metoprolol succinate ER 50 mg tablet,extended release 24 hr RxNorm: 177821 TAKE ONE TABLET BY MOUTH ONCE DAILY 12/23/2016 02/02/2017 Inactive Zithromax Z-Ted 250 mg tablet RxNorm: 845000 1 Tablet(s) PO UD 11/26/2016 02/16/2017 Inactive trazodone 50 mg tablet RxNorm: 372498 TAKE ONE TABLET BY MOUTH ONCE DAILY 11/12/2016 03/11/2017 In active Ambien 10 mg tablet RxNorm: 665396 Tablet(s) TAKE ONE TABLET BY MOUTH AT BE DTICO 10/22/2016 02/15/2017 Inactive paroxetine 20 mg tablet RxNorm: 2159813 1 Tablet(s) PO daily TAKE ONE TABLET BY MOUTH DAILY 09/16/2016 06/12/2017 Inactive meloxicam 7.5 mg tablet RxNorm: 270010 1 Tablet(s) PO daily 09/16/2016 11/14/2016 Inactive Protonix 40 mg table t,delayed release RxNorm: 947287 1 Tablet(s) PO daily 09/16/2016 08/22/2017 In active sucralfate 1 gram ta blet RxNorm: 877932 1 Tablet(s) PO TID 09/16/2016 08/22/2017 Inactive Ambien 10 mg tablet RxNorm: 833351 Tablet(s) TAKE ONE TABLET BY MOUTH AT BE DTICO 08/24/2016 03/22/2018 Inactive trazodone 50 mg tablet RxNorm: 508461 Tablet(s) TAKE ONE TABLET BY MOUTH DAILY 07/29/2016 11/11/2016 In active Ambien 10 mg tablet RxNorm: 141278 TAKE ONE TABLET BY MOUTH AT BEDTIME 06/23/2016 03/22/2018 In active Ambien 10 mg tablet RxNorm: 656450 Tablet(s) TAKE ONE TABLET BY MOUTH EVERY NIGHT AT BEDTIME 06/22/2016 06/23/2016 Inactive Lasix 40 mg tablet RxNorm: 983761 1 Tablet(s) PO daily as needed for swell ing 04/03/2016 09/15/2016 In active potassium chloride E R 20 mEq tablet,extended release RxNorm: 141259 1 Tablet(s) PO daily for swelling take with lasix as needed 04/03/2016 09/15/2016 Inactive Ambien 10 mg tablet RxNorm: 922206 Tablet(s) TAKE ONE TABLET BY MOUTH EVERY NIGHT AT BEDTIME 04/03/2016 03/22/2018 Inactive omeprazole 20 mg cap marina,delayed release RxNorm: 008725 TAKE ONE CAPSULE BY M OUTH EVERY NIGHT AT BEDTIME 03/31/2016 09/15/2016 Inactive paroxetine 20 mg tablet RxNorm: 1366838 TAKE ONE TABLET BY MOUTH DAILY 03/31/2016 09/15/2016 In active trazodone 50 mg tablet RxNorm: 685957 TAKE ONE TABLET BY MOUTH DAILY 03/20/2016 07/28/2016 In active terazosin 5 mg capsule RxNorm: 238577 TAKE ONE CAPSULE BY MOUTH DAILY 03/06/2016 10/06/2016 In active Ambien 10 mg tablet RxNorm: 824646 Tablet(s) TAKE ONE TABLET BY MOUTH EVERY NIGHT AT BEDTIME 01/17/2016 04/02/2016 Inactive loratadine 10 mg tablet RxNorm: 015917 1 Tablet(s) PO daily 01/15/2016 09/15/2016 Inactive mupirocin 2 % topica l ointment RxNorm: 219983 1 Application TOP TID 11/18/2015 12/01/2015 Inactive metoprolol succinate ER 50 mg tablet,extended release 24 hr RxNorm: 771793 1 Tablet(s) PO daily 11/18/2015 11/11/2016 Inactive loratadine 10 mg tablet RxNorm: 786916 1 Tablet(s) PO daily 11/18/2015 01/14/2016 Inactive Lasix 40 mg tablet RxNorm: 494176 1 Tablet(s) PO daily as needed for swell ing 10/30/2015 11/28/2015 In active potassium chloride E R 20 mEq tablet,extended release RxNorm: 184597 1 Tablet(s) PO daily for swelling take with lasix as needed 10/30/2015 11/28/2015 Inactive Tylenol-Codeine #3 3 00 mg-30 mg tablet RxNorm: 038599 1 Tablet(s) PO QID as needed 10/25/2015 02/01/2017 In active Ambien 10 mg tablet RxNorm: 918301 Tablet(s) TAKE ONE TABLET BY MOUTH EVERY NIGHT AT BEDTIME 10/18/2015 03/22/2018 Inactive Diflucan 150 mg tablet RxNorm: 953321 1 Tablet(s) PO daily 10/01/2015 12/03/2015 Inactive Lasix 20 mg tablet RxNorm: 151845 1 Tablet(s) PO PRN fror swelling 09/27/2015 10/29/2015 In active potassium chloride E R 10 mEq capsule,extended release RxNorm: 178698 1 Capsule(s) PO PRN for swelling take with lasix 09/27/2015 10/29/2015 Inactive Bactrim DS 800 mg-16 0 mg tablet RxNorm: 819894 1 Tablet(s) PO BID 09/02/2015 09/11/2015 Inactive Bactrim DS 800 mg-16 0 mg tablet RxNorm: 715260 1 Tablet(s) PO BID 09/02/2015 09/01/2015 Inactive nystatin 100,000 uni t/gram topical cream RxNorm: 470731 1 Gram(s) TOP TID 08/28/2015 09/26/2015 In active Diflucan 150 mg tablet RxNorm: 534506 1 Tablet(s) PO daily 08/28/2015 09/06/2015 Inactive betamethasone diprop ionate 0.05 % topical ointment RxNorm: 891154 1 Application TOP TID to affected area 08/02/2015 02/01/2017 Inactive nystatin 100,000 uni t/gram topical powder RxNorm: 887751 1 Gram(s) TOP QID 07/09/2015 08/01/2015 In active Ambien 10 mg tablet RxNorm: 780701 1 Tablet(s) PO QHS 06/19/2015 06/18/2015 Inactive Ambien 10 mg tablet RxNorm: 462087 TAKE ONE TABLET BY MOUTH EVERY NIGHT AT BEDTIME 06/19/2015 09/16/2015 Inactive Vitamin D2 50,000 un it capsule RxNorm: 179277 1 Capsule(s) PO QW 03/07/2015 03/06/2015 Inactive Vitamin D2 50,000 un it capsule RxNorm: 3293964 1 Capsule(s) PO QW 03/07/2015 05/05/2015 Inactive terazosin 5 mg capsule RxNorm: 113709 1 Capsule(s) PO daily 03/06/2015 02/28/2016 Inactive [SAVINGS FOR NON-COVERED DRUGS -- BIN:00 3585, PCN: [id number], Group: XXXXX, ID# [id number], Questions: . THIS IS NOT INSURANCE.] trazodone 50 mg tablet RxNorm: 675427 1 Tablet(s) PO daily 03/06/2015 02/28/2016 Inactive paroxetine 20 mg tablet RxNorm: 3627736 1 Tablet(s) PO daily 03/06/2015 02/28/2016 Inactive Tylenol-Codeine #3 3 00 mg-30 mg tablet RxNorm: 291888 1 Tablet(s) PO QID as needed 03/06/2015 07/02/2015 In active amlodipine 10 mg tablet RxNorm: 123834 1 Tablet(s) PO daily 03/06/2015 11/17/2015 Inactive metoprolol succinate ER 25 mg tablet,extended release 24 hr RxNorm: 738667 1 Tablet(s) PO daily 03/06/2015 11/17/2015 Inactive omeprazole 20 mg cap marina,delayed release RxNorm: 082422 1 Capsule(s) PO QHS 03/06/2015 02/28/2016 In active omeprazole 20 mg cap marina,delayed release RxNorm: 757878 1 Capsule(s) PO QHS 01/31/2015 01/30/2015 In active omeprazole 20 mg cap marina,delayed release RxNorm: 668719 1 Capsule(s) PO QHS 01/31/2015 01/30/2015 In active omeprazole 20 mg cap marina,delayed release RxNorm: 244140 1 Capsule(s) PO QHS 01/31/2015 03/05/2015 In active Ambien 10 mg tablet RxNorm: 401164 1 Tablet(s) PO QHS 12/25/2014 04/21/2015 Inactive paroxetine 20 mg tablet RxNorm: 359468 1 Tablet(s) PO daily 12/25/2014 12/24/2014 Inactive Ambien 10 mg tablet RxNorm: 318288 1 Tablet(s) PO QHS 12/25/2014 12/24/2014 Inactive paroxetine 20 mg tablet RxNorm: 122853 1 Tablet(s) PO daily 12/25/2014 03/05/2015 Inactive terazosin 5 mg capsule RxNorm: 544626 1 Capsule(s) PO daily 11/23/2014 03/05/2015 Inactive [SAVINGS FOR NON-COVERED DRUGS -- BIN:00 3585, PCN: ASPROD1, Group: XXXXX, ID# [id number], Questions: . THIS IS NOT INSURANCE.] terazosin 5 mg capsule RxNorm: 408028 1 Capsule(s) PO daily 11/23/2014 11/22/2014 Inactive Lasix 20 mg tablet RxNorm: 873182 1 Tablet(s) PO daily No Start Date Active K-Dur 10 mEq tablet, extended release RxNorm: 554173 1 Tablet(s) PO daily No Start Date Active hydrochlorothiazide 25 mg tablet RxNorm: 077418 1 Tablet(s) PO daily No Start Date Active Vitamin D3 2,000 uni t tablet RxNorm: 261212 1 Tablet(s) PO daily No Start Date Active amiodarone 200 mg ta blet RxNorm: 136211 1 Tablet(s) PO BID No Start Date Active Zetia 10 mg tablet RxNorm: 224078 1 Tablet(s) PO daily No Start Date Active Lipitor 80 mg tablet RxNorm: 993982 1/2 Tablet(s) PO daily No Start Date Active Coumadin 4 mg tablet RxNorm: 848840 1 Tablet(s) PO daily No Start Date Active metoprolol succinate ER 25 mg tablet,extended release 24 hr RxNorm: 587895 1 Tablet(s) PO daily No Start Date 03/05/2015 Inactive Entresto 49 mg-51 mg tablet RxNorm: 4106648 1 Tablet(s) PO BID No Start Date 04/19/2018 Inactive sotalol 80 mg tablet RxNorm: 8254536 1 Tablet(s) PO BID No Start Date 04/19/2018 Inactive betamethasone diprop ionate 0.05 % topical ointment RxNorm: 274556 1 Application TOP TID to affected area No Start Date 08/01/2015 Inactive trazodone 50 mg tablet RxNorm: 381133 1 Tablet(s) PO daily No Start Date 03/05/2015 Inactive potassium chloride E R 10 mEq capsule,extended release RxNorm: 331147 1 Capsule(s) PO PRN for swelling take with lasix No Start Date 09/26/2015 Inactive Eliquis 5 mg tablet RxNorm: 8699749 1 Tablet(s) PO BID No Start Date 09/14/2018 Inactive amlodipine 10 mg tablet RxNorm: 604375 1 Tablet(s) PO daily No Start Date 03/05/2015 Inactive isosorbide mononitra te ER 30 mg tablet,extended release 24 hr RxNorm: 872667 1 Tablet(s) PO daily No Start Date 08/22/2017 Inactive aspirin 81 mg tablet ,delayed release RxNorm: 944476 1 Tablet(s) PO daily No Start Date 02/02/2017 Inactive Lasix 20 mg tablet RxNorm: 335976 1 Tablet(s) PO PRN fror swelling No Start Date 09/26/2015 Inactive lisinopril 5 mg tablet RxNorm: 781211 1 Tablet(s) PO daily No Start Date 07/31/2018 Inactive Crestor 40 mg tablet RxNorm: 145638 1 Tablet(s) PO daily No Start Date 09/15/2016 Inactive metoprolol succinate ER 100 mg tablet,extended release 24 hr RxNorm: 212143 1 Tablet(s) PO daily No Start Date 12/15/2017 Inactive Medication Administered No Medication Administered data Immunizations Vaccine Codes Date Status Influenza CVX: 141 04/20 completed Influenza CVX: 141 04/08 completed Pneumococcal (Adult) CVX: 133 04/08/2016 completed Assessments Condition Codes Effectiv e Dates Low back pain ICD-10: M54.5 ICD-9: 724.2 01/12/2019 Essential (primary) hypertension ICD -10: I10 ICD-9: 401.1 01/12/2019 Vitamin D deficiency, unspecified IC D-10: E55.9 ICD-9: 268.9 01/12/2019 Localized edema ICD-10: R60.0 ICD-9: 782.3 01/12/2019 Dysuria ICD-10: R30.0 ICD-9: 788.1 01/12/2019 Chronic atrial fibrillation ICD-10: I48.2 ICD-9: [...] G47.33 ICD-9: 327.23 12/16/2017 Paroxysmal atrial fibrillation ICD-1 0: I48.0 ICD-9: 427.31 02/02/2017 Acute laryngopharyngitis ICD-10: J06 .0 ICD-9: 465.0 [...] Reason For Visit Effective Dates Notes hypertension 01/12/2019 edema 12/06/2018 hypertension 11/15/2018 diarrhea [...] Code Item Item Code Result Date Pt Ezl1611 PT 24.7 seconds 01/12/2019 Pt Sjq2290 INR 2.3 01/12/2019 Pt Zdx6030 Low Intensity - 1.5-2.0 01/12/2019 Pt Ulq9648 Mod intensity - 2.0-3.0 01/12/2019 Pt Fpf2157 Hi intensity - 3.0-4.0 01/12/2019 Cbc With [...] 27.0 pg 01/12/2019 Cbc With Differential Ord2 [place]% 11.1 % 01/12/2019 Cbc With Differential Ord2 [...] 0.92 K/ul 01/12/2019 Cbc With Differential Ord2 [place] ABS# 0.4 K/ul 01/12/2019 Cbc With Differential Ord2 Eos ABS# 0.1 K/ul 01/12/2019 Cbc With Differential Ord2 Baso ABS# 0.0 K/ul 01/12/2019 Comp Metabolic Xkk818 NA 141 mEq/L 01/12/2019 Comp Metabolic Qlk001 K 3.8 mEq/L 01/12/2019 Comp Metabolic Jxm301 CL 105 mEq/L 01/12/2019 Comp Metabolic Czu082 CO2 26.0 mEq/L 01/12/2019 Comp Metabolic Odp013 AN ION GAP 14 01/12/2019 Comp Metabolic Dxc665 GL UCOSE 112 mg/dL 01/12/2019 Comp Metabolic Swr970 Cr eat 1.0 mg/dL 01/12/2019 Comp Metabolic Cwg141 eG FR 60 ml/min/1.73m2 01/12 Comp Metabolic Tkh197 BUN 14 mg/dL 01/12/2019 Comp Metabolic Pni362 B/ C Ratio 14.4 Ratio 01/12/2019 Comp Metabolic Cia294 CA LCIUM 8.8 mg/dL 01/12/2019 Comp Metabolic Rla904 AL K PHOS 60 U/L 01/12/2019 Comp Metabolic Xaq628 T(SGOT) 22 U/L 01/12/2019 Comp Metabolic Xrj570 AL T(SGPT) 22 U/L 01/12/2019 Comp Metabolic Psc022 BI LI T 0.5 mg/dL 01/12/2019 Comp Metabolic Wpb605 AL BUMIN 3.9 g/dL 01/12/2019 Comp Metabolic Fvc565 TP RO 6.5 g/dL 01/12/2019 Comp Metabolic Rrk635 GL OB 2.6 g/dL 01/12/2019 Comp Metabolic Dbs502 A/ G Ratio 1.5 Ratio 01/12/2019 Comp Metabolic Ypy234 Os mo 282 mOsmo 01/12/2019 Vitamin D 25 Oh Gpe8159 VITAMIN D, 25 HYDROXY 30.62 ng/mL 01/12/2019 Urine Culture Ucult Comp lete >100,000 col/ml aerobic grow th sent to ref lab 11/16/2018 Culture Urine [id number] URI NE CULTURE SEE NOTES 08/22/2018 Culture Urine [id number] Con tinued Results 08/22/2018 Urine Culture Ucult Comp lete >100,000 col/ml aerobic grow th sent to ref lab 08/19/2018 Comp Metabolic Vmm919 NA 140 mEq/L 08/01/2018 Comp Metabolic Cpr547 K 4.2 mEq/L 08/01/2018 Comp Metabolic Iws088 CL 102 mEq/L 08/01/2018 Comp Metabolic Fwe552 CO2 27.0 mEq/L 08/01/2018 Comp Metabolic Key514 AN ION GAP 15 08/01/2018 Comp Metabolic Szx754 GL UCOSE 107 mg/dL 08/01/2018 Comp Metabolic Her687 Cr eat 1.0 mg/dL 08/01/2018 Comp Metabolic Bdi156 eG FR 58 ml/min/1.73m2 08/01 Comp Metabolic Sna570 BUN 10 mg/dL 08/01/2018 Comp Metabolic Fjk570 B/ C Ratio 10.0 Ratio 08/01/2018 Comp Metabolic Rfa197 CA LCIUM 8.9 mg/dL 08/01/2018 Comp Metabolic Uva461 AL K PHOS 68 U/L 08/01/2018 Comp Metabolic Vjc781 T(SGOT) 18 U/L 08/01/2018 Comp Metabolic Udw632 AL T(SGPT) 14 U/L 08/01/2018 Comp Metabolic Njo797 BI LI T 0.5 mg/dL 08/01/2018 Comp Metabolic Jpx579 AL BUMIN 4.0 g/dL 08/01/2018 Comp Metabolic Nzf654 TP RO 6.3 g/dL 08/01/2018 Comp Metabolic Cvy844 GL OB 2.3 g/dL 08/01/2018 Comp Metabolic Mls070 A/ G Ratio 1.7 Ratio 08/01/2018 Comp Metabolic Cyh272 Os mo 279 mOsmo 08/01/2018 Tsh Ord6 [...] 27.3 pg 08/01/2018 Cbc With Differential Ord2 [place]% 9.8 % 08/01/2018 Cbc With Differential Ord2 [...] 0.79 K/ul 08/01/2018 Cbc With Differential Ord2 [place] ABS# 0.4 K/ul 08/01/2018 Cbc With Differential Ord2 Eos ABS# 0.1 K/ul 08/01/2018 Cbc With Differential Ord2 Baso ABS# 0.0 K/ul 08/01/2018 Lipid Ord30 CHOL 234 mg/dL 08/01/2018 Lipid Ord30 HDL 69.0 mg/dl 08/01/2018 Lipid Ord30 TRIG 57 mg/dL 08/01/2018 Lipid Ord30 LDL 154 mg/dL 08/01/2018 Lipid Ord30 C/HDL 3.4 Ratio 08/01/2018 Comp Metabolic Bmm237 NA 137 mEq/L 09/30/2015 Comp Metabolic Qzl046 K 4.5 mEq/L 09/30/2015 Comp Metabolic Glj044 CL 102 mEq/L 09/30/2015 Comp Metabolic Bue877 CO2 26.0 mEq/L 09/30/2015 Comp Metabolic Vvn584 AN ION GAP 14 09/30/2015 Comp Metabolic Eek795 GL UCOSE 89 mg/dL 09/30/2015 Comp Metabolic Kly425 Cr eat 0.8 mg/dL 09/30/2015 Comp Metabolic Slr854 eG FR 79 ml/min/1.73m2 09/29 Comp Metabolic Vmm222 BUN 14 mg/dL 09/30/2015 Comp Metabolic Zmb812 B/ C Ratio 18.2 Ratio 09/30/2015 Comp Metabolic Tfg666 CA LCIUM 8.9 mg/dL 09/30/2015 Comp Metabolic Whi504 AL K PHOS 65 U/L 09/30/2015 Comp Metabolic Xzt836 T(SGOT) 26 U/L 09/30/2015 Comp Metabolic Kwo037 AL T(SGPT) 18 U/L 09/30/2015 Comp Metabolic Hcs933 BI LI T 0.6 mg/dL 09/30/2015 Comp Metabolic Rto549 AL BUMIN 3.8 g/dL 09/30/2015 Comp Metabolic Fwt281 TP RO 6.6 g/dL 09/30/2015 Comp Metabolic Tid008 GL OB 2.8 g/dL 09/30/2015 Comp Metabolic Aoc834 A/ G Ratio 1.4 Ratio 09/30/2015 Comp Metabolic Xjs533 Os mo 274 mOsmo 09/30/2015 Cbc With [...] 27.7 pg 09/30/2015 Cbc With Differential Ord2 [place]% 10.7 % 09/30/2015 Cbc With Differential Ord2 [...] 1.10 K/ul 09/30/2015 Cbc With Differential Ord2 [place] ABS# 0.6 K/ul 09/30/2015 Cbc With Differential Ord2 Eos ABS# 0.2 K/ul 09/30/2015 Cbc With Differential Ord2 Baso ABS# 0.0 K/ul 09/30/2015 Cbc With Differential Ord2 New Analyzer Notice Please note new ref ranges s tarting 08-07-2015 due to implemntation of new five part differential hematolgy analyzer. 09/30/2015 Tsh Ord6 hTSH II 1.05 uIU/mL 03/06/2015 Comp Metabolic Eou859 NA 137 mEq/L 03/06/2015 Comp Metabolic Sfh230 K 4.3 mEq/L 03/06/2015 Comp Metabolic Pdd370 CL 104 mEq/L 03/06/2015 Comp Metabolic Eun477 CO2 28.0 mEq/L 03/06/2015 Comp Metabolic Wtm102 AN ION GAP 9 03/06/2015 Comp Metabolic Dve380 GL UCOSE 93 mg/dL 03/06/2015 Comp Metabolic Pqo115 Cr eat 0.8 mg/dL 03/06/2015 Comp Metabolic Oul370 eG FR 81 ml/min/1.73m2 03/06 Comp Metabolic Brk592 BUN 12 mg/dL 03/06/2015 Comp Metabolic Xso993 B/ C Ratio 16.0 Ratio 03/06/2015 Comp Metabolic Kwc036 CA LCIUM 8.9 mg/dL 03/06/2015 Comp Metabolic Eqr913 AL K PHOS 56 U/L 03/06/2015 Comp Metabolic Lua971 T(SGOT) 22 U/L 03/06/2015 Comp Metabolic Ghd134 AL T(SGPT) 15 U/L 03/06/2015 Comp Metabolic Zlq532 BI LI T 0.4 mg/dL 03/06/2015 Comp Metabolic Jvk841 AL BUMIN 4.0 g/dL 03/06/2015 Comp Metabolic Jve064 TP RO 6.5 g/dL 03/06/2015 Comp Metabolic Jfz763 GL OB 2.5 g/dL 03/06/2015 Comp Metabolic Dqx665 A/ G Ratio 1.6 Ratio 03/06/2015 Comp Metabolic Tlv330 Os mo 273 mOsmo 03/06/2015 Vitamin D 25 Oh Khx8057 VITAMIN D, 25 HYDROXY 28.14 ng/mL 03/06/2015 [...] Result Effective Dates Constitutional No recent illness 01/12/2019 Constitutional No [...] age 0108/01/2018 None Full Exam - General 1995 Constitutional general appearance Overall: well developed 08/01/2018 [...] Date URINALYSIS NONAUTO W /O SCOPE CPT-4: 64771 01/12/2019 URINALYSIS NONAUTO W /O SCOPE CPT-4: 27742 12/06/2018 URINALYSIS NONAUTO W /O SCOPE CPT-4: 33355 11/15/2018 URINALYSIS NONAUTO W /O SCOPE CPT-4: 70420 08/18/2018 ADMIN INFLUENZA VIRU S VAC CPT-4: G0008 04/20/2018 FLU VACC PRSV FREE I NC ANTIG Formatting Model/CDA Sections, Assigned to/Amparo Mims CPT-4: 63316Yfyebhj 04/20/2018 PPPS, SUBSEQ VISIT CPT- 4: G0439 02/09/2018 PPPS, SUBSEQ VISIT CPT- 4: G0439 02/03/2017 ADMIN INFLUENZA VIRU S VAC CPT-4: G0008 04/08/2016 ADMIN PNEUMOCOCCAL V ACCINE SNOMED CT: [id number] CPT-4: G0009 04/08/2016 PNEUMOCOCCAL VACC [address]: [id number] CPT-4: 57968 04/08/2016 FLU VACC PRSV FREE I NC ANTIG CPT-4: 02699 04/08/2016 Vital Signs Date Vital 01/12/2019 Blood Pressure 1: 128/68 Code: 8480-6 BMI: 41.2 Code: 03804-4 Heart Rate 1: 82 bpm Height: 5'7" SpO2: 92% Weight: 263 lbs 12/06/2018 Blood Pressure 1: 118/70 Code: 8480-6 BMI: 41.5 Code: 47994-9 Heart Rate 1: 97 bpm Height: 5'7" SpO2: 96% Weight: 265 lbs 11/15/2018 Blood Pressure 1: 144/76 Code: 8480-6 BMI: 42.3 Code: 77821-5 Heart Rate 1: 82 bpm Height: 5'7" SpO2: 96% Weight: 270 lbs 10/25/2018 Blood Pressure 1: 128/80 Code: 8480-6 BMI: 42.0 Code: 79479-4 Heart Rate 1: 93 bpm Height: 5'7" SpO2: 95% Weight: 268 lbs 10/13/2018 Blood Pressure 1: 162/76 Code: 8480-6 BMI: 42.0 Code: 58749-4 Heart Rate 1: 71 bpm Height: 5'7" SpO2: 96% Weight: 268 lbs 09/15/2018 Blood Pressure 1: 154/86 Code: 8480-6 BMI: 42.9 Code: 43260-2 Heart Rate 1: 88 bpm Height: 5'7" SpO2: 94% Weight: 274 lbs 08/15/2018 Blood Pressure 1: 140/90 Code: 8480-6 BMI: 40.7 Code: 76097-9 Heart Rate 1: 70 bpm Height: 5'7" SpO2: 93% Weight: 260 lbs 08/01/2018 Blood Pressure 1: 130/70 Code: 8480-6 BMI: 40.7 Code: 25159-6 Heart Rate 1: 80 bpm Height: 5'7" SpO2: 93% Weight: 260 lbs 04/20/2018 Blood Pressure 1: 128/68 Code: 8480-6 BMI: 41.7 Code: 78276-0 Heart Rate 1: 85 bpm Height: 5'7" SpO2: 94% Weight: 266 lbs 02/09/2018 Blood Pressure 1: 118/70 Code: 8480-6 BMI: 42.1 Code: 50273-6 Heart Rate 1: 58 bpm Height: 5'7" SpO2: 94% Weight: 269 lbs 12/16/2017 Blood Pressure 1: 132/86 Code: 8480-6 BMI: 42.7 Code: 05796-8 Heart Rate 1: 63 bpm Height: 5'7" SpO2: 94% Weight: 272 lbs 14 o z 08/23/2017 Blood Pressure 1: 150/82 Code: 8480-6 BMI: 42.0 Code: 41481-3 Heart Rate 1: 66 bpm Height: 5'7" SpO2: 96% Weight: 268 lbs 02/03/2017 Blood Pressure 1: 138/72 Code: 8480-6 BMI: 41.2 Code: 44289-4 Heart Rate 1: 96 bpm Height: 5'7" SpO2: 97% Weight: 263 lbs 02/02/2017 Blood Pressure 1: 140/90 Code: 8480-6 BMI: 41.2 Code: 12700-1 Heart Rate 1: 103 bpm Height: 5'7" SpO2: 94% Weight: 263 lbs 11/26/2016 Blood Pressure 1: 152/88 Code: 8480-6 BMI: 41.0 Code: 80702-7 Heart Rate 1: 71 bpm Height: 5'7" SpO2: 94% Temperature: 37.7 (C ) / 99.8 (F) Weight: 262 lbs 10/07/2016 Blood Pressure 1: 148/82 Code: 8480-6 BMI: 41.7 Code: 15151-0 Heart Rate 1: 58 bpm Height: 5'7" SpO2: 96% Weight: 266 lbs 09/16/2016 Blood Pressure 1: 122/70 Code: 8480-6 BMI: 42.0 Code: 68950-9 Heart Rate 1: 65 bpm Height: 5'7" SpO2: 96% Weight: 268 lbs 09/07/2016 Blood Pressure 1: 154/60 Code: 8480-6 BMI: 42.3 Code: 32825-8 Heart Rate 1: 101 bpm Height: 5'7" SpO2: 97% Weight: 270 lbs 04/08/2016 Blood Pressure 1: 128/70 Code: 8480-6 BMI: 41.4 Code: 48788-8 Heart Rate 1: 62 bpm Height: 5'7" SpO2: 95% Weight: 264 lbs 8 oz 03/05/2016 Blood Pressure 1: 144/78 Code: 8480-6 Blood Pressure 1: 139/72 Code: 8480-6 BMI: 41.9 Code: 14783-3 Heart Rate 1: 71 bpm Height: 5'7" SpO2: 93% Weight: 267 lbs 8 oz 12/04/2015 Blood Pressure 1: 132/70 Code: 8480-6 BMI: 41.3 Code: 61801-2 Heart Rate 1: 56 bpm Height: 5'7" SpO2: 96% Weight: 264 lbs 11/18/2015 Blood Pressure 1: 138/72 Code: 8480-6 BMI: 41.0 Code: 67093-6 Heart Rate 1: 85 bpm Height: 5'7" SpO2: 93% Weight: 262 lbs 09/30/2015 Blood Pressure 1: 128/76 Code: 8480-6 BMI: 41.2 Code: 15098-3 Heart Rate 1: 70 bpm Height: 5'7" SpO2: 93% Weight: 263 lbs 09/09/2015 Blood Pressure 1: 138/80 Code: 8480-6 BMI: 40.3 Code: 20106-1 Heart Rate 1: 84 bpm Height: 5'7" SpO2: 95% Weight: 257 lbs 08/28/2015 Blood Pressure 1: 122/72 Code: 8480-6 BMI: 39.6 Code: 06996-6 Heart Rate 1: 75 bpm Height: 5'7" SpO2: 96% Weight: 253 lbs 07/09/2015 Blood Pressure 1: 140/78 Code: 8480-6 Blood Pressure 1: 135/78 Code: 8480-6 BMI: 39.5 Code: 42484-1 Heart Rate 1: 62 bpm Height: 5'7" SpO2: 95% Weight: 252 lbs 03/06/2015 Blood Pressure 1: 142/88 Code: 8480-6 BMI: 39.3 Code: 51532-8 Heart Rate 1: 65 bpm Height: 5'7" SpO2: 95% Weight: 251 lbs Functional Status No Functional Status data History of Present Illness Symptom Name Status Resu lt Effective Date Notes Quality chronic 01/12/2019 None Quality primary hypert [...] Encounters Encounter Performer Loca tion Codes Date ([id number]) 82468 EST. P ATIENT, LEVEL IV Diagnosis: Essential (primary) hypertension[ICD10: I10] Diagnosis: Chronic atrial fibrillation[ICD10: I48.2] Diagnosis: Localized edema[ICD10: R60.0] Diagnosis: Dysuria[ICD10: R30.0] Diagnosis: Low back pain[ICD10: M54.5] Diagnosis: Vitamin D deficiency, unspecified[ICD10: E55.9] Alis Spring MD, [facility] CPT-4: 39803 01/12/2019 ([id number]) 40539 EST. P ATIENT, LEVEL IV Diagnosis: Localized edema[ICD10: R60.0] Diagnosis: Dysuria[ICD10: R30.0] Diagnosis: Cellulitis of abdominal wall[ICD10: L03.311] Alis Spring MD, [facility] CPT-4: 43219 12/06/2018 ([id number]) 51355 EST. P ATIENT, LEVEL III Diagnosis: Dysuria[ICD10: R30.0] Diagnosis: Essential (primary) hypertension[ICD10: I10] Diagnosis: Major depressive disorder, recurrent, moderate[ICD10: F33.1] Alis Spring MD, [facility] CPT-4: 44513 11/15/2018 ([id number]) 64921 EST. P ATIENT, LEVEL IV Diagnosis: Eructation[ICD10: R14.2] Diagnosis: Nausea[ICD10: R11.0] Diagnosis: Chest pain, unspecified[ICD10: R07.9] Diagnosis: Diarrhea, unspecified[ICD10: R19.7] Alis Spring MD, [facility] CPT-4: 18911 10/25/2018 ([id number]) 61954 EST. P ATIENT, LEVEL IV Diagnosis: Essential (primary) hypertension[ICD10: I10] Diagnosis: Low back pain[ICD10: M54.5] Diagnosis: Major depressive disorder, recurrent, moderate[ICD10: F33.1] Alis Spring MD, [facility] CPT-4: 39435 10/13/2018 ([id number]) 46384 EST. P ATIENT, LEVEL IV Diagnosis: Essential (primary) hypertension[ICD10: I10] Diagnosis: Dysuria[ICD10: R30.0] Diagnosis: Low back pain[ICD10: M54.5] Alis Spring MD, [facility] CPT- 4: 29338 09/15/2018 ([id number]) 84038 EST. P ATIENT, LEVEL III Diagnosis: Essential (primary) hypertension[ICD10: I10] Diagnosis: Low back pain[ICD10: M54.5] Alis Spring MD, [facility] CPT- 4: 07070 08/15/2018 ([id number]) 50548 EST. P ATIENT, LEVEL III Diagnosis: Essential (primary) hypertension[ICD10: I10] Diagnosis: Cough[ICD10: R05] Diagnosis: Low back pain[ICD10: M54.5] Alis Spring MD, [facility] CPT- 4: 07037 08/01/2018 ([id number]) 11609 EST. P ATIENT, LEVEL IV Diagnosis: Encounter for immunization[ICD10: Z23] Diagnosis: Essential (primary) hypertension[ICD10: I10] Diagnosis: Chronic atrial fibrillation[ICD10: I48.2] Diagnosis: Major depressive disorder, recurrent, mild[ICD10: F33.0] Scarlett Spring MD, [facility] [place] CPT-4: 05633 04/20/2018 ([id number]) 10360 EST. P ATIENT, LEVEL IV Diagnosis: Essential (primary) hypertension[ICD10: I10] Diagnosis: Obstructive sleep apnea (adult) (pediatric)[ICD10: G47.33] Diagnosis: Chronic atrial fibrillation[ICD10: I48.2] Scarlett Spring MD, [facility] [place] CPT-4: 36292 12/16/2017 ([id number]) 19419 EST. P ATIENT, LEVEL IV Diagnosis: Essential (primary) hypertension[ICD10: I10] Diagnosis: Chronic atrial fibrillation[ICD10: I48.2] Scarlett Spring MD, [facility] [place] CPT-4: 43379 08/23/2017 ([id number]) 79878 EST. P ATIENT, LEVEL IV Diagnosis: Paroxysmal atrial fibrillation[ICD10: I48.0] Diagnosis: Essential (primary) hypertension[ICD10: I10] Scarlett Spring MD, [facility] [place] CPT-4: 13302 02/02/2017 42190 EST. PATIENT, LEVEL III Diagnosis: Acute laryngopharyngitis[ICD10: J06.0] Diagnosis: Cough[ICD10: R05] Diagnosis: Pleurodynia[ICD10: R07.81] Diagnosis: Other dorsalgia[ICD10: M54.89] Kassandra Spring MD, [facility] CPT-4: 02069 11/26/2016 ([id number]) 60646 EST. P ATIENT, LEVEL IV Diagnosis: Essential (primary) hypertension[ICD10: I10] Diagnosis: Pain in left knee[ICD10: M25.562] Diagnosis: Low back pain[ICD10: M54.5] Diagnosis: Major depressive disorder, recurrent, moderate[ICD10: F33.1] Scarlett Spring MD, [facility] CPT-4: 24786 10/07/2016 ([id number]) 42169 EST. P ATIENT, LEVEL IV Diagnosis: Essential (primary) hypertension[ICD10: I10] Diagnosis: Rash and other nonspecific skin eruption[ICD10: R21] Diagnosis: Major depressive disorder, recurrent, mild[ICD10: F33.0] Scarlett Spring MD, [facility] [place] CPT-4: 04655 09/16/2016 25090 EST. PATIENT, LEVEL IV Diagnosis: Pain in left lower leg[ICD10: M79.662] Diagnosis: Pain in left knee[ICD10: M25.562] Kassandra Spring MD, [facility] CPT-4: 38476 09/07/2016 ([id number]) 40148 EST. P ATIENT, LEVEL IV Diagnosis: Encounter for immunization[ICD10: Z23] Diagnosis: Essential (primary) hypertension[ICD10: I10] Diagnosis: Mixed hyperlipidemia[ICD10: E78.2] Scarlett Spring MD, [facility] CPT- 4: 16453 04/08/2016 ([id number]) 80387 EST. P ATIENT, LEVEL III Diagnosis: Essential (primary) hypertension[ICD10: I10] Diagnosis: Shortness of breath[ICD10: R06.02] Scarlett Spring MD, [facility] CPT- 4: 41635 03/05/2016 ([id number]) 40289 EST. P ATIENT, LEVEL III Diagnosis: Chronic obstructive pulmonary disease, unspecified[ICD10: J44.9] Scarlett Spring MD, [facility] CPT-4: 58699 12/04/2015 ([id number]) 77035 EST. P ATIENT, LEVEL IV Diagnosis: Essential (primary) hypertension[ICD10: I10] Diagnosis: Allergic rhinitis due to pollen[ICD10: J30.1] Scarlett Spring MD [facility] [place] CPT-4: 13834 11/18/2015 ([id number]) 04551 EST. P ATIENT, LEVEL IV Diagnosis: Localized edema[ICD10: R60.0] Diagnosis: Dysuria[ICD10: R30.0] Diagnosis: Essential (primary) hypertension[ICD10: I10] Diagnosis: Nausea[ICD10: R11.0] Alis Spring MD, [facility] CPT-4: 56197 09/30/2015 ([id number]) 02218 EST. P ATIENT, LEVEL II Diagnosis: Methicillin susceptible Staphylococcus aureus infection as the cause of diseases classified elsewhere[ICD10: B95.61] Diagnosis: Methicillin susceptible Staphylococcus aureus infection, unspecified site[ICD10: A49.01] Alis Spring MD, [facility] CPT-4: 32098 09/09/2015 ([id number]) 55339 EST. P ATIENT, LEVEL III Diagnosis: Dermatophytosis, unspecified[ICD10: B35.9] Diagnosis: Rash and other nonspecific skin eruption[ICD10: R21] Scarlett Spring MD, [facility] [place] CPT-4: 80052 08/28/2015 ([id number]) 53904 EST. P ATIENT, LEVEL IV Diagnosis: Essential (primary) hypertension[ICD10: I10] Diagnosis: Gastro-esophageal reflux disease without esophagitis[ICD10: K21.9] Diagnosis: Other dorsalgia[ICD10: M54.89] Scarlett Spring MD, [facility] CPT-4: 67386 07/09/2015 ([id number]) OFFICE VISI , [facility] - LEVEL 4 Diagnosis: ESSENTIAL HYPERTENSION[ICD9: 401.9] Diagnosis: Osteoporosis[ICD9: 733.00] Diagnosis: Back pain[ICD9: 724.5] Diagnosis: Insomnia[ICD9: 780.52] Diagnosis: ESOPHAGEAL REFLUX[ICD9: 530.81] Scarlett Spring MD, [facility] CPT-4: 01458 03/06/2015 Plan of Care Planned Activity Notes C odes Status Date Visit Plan: Hypertension - well con trolled [...] labs today 01/12/2019 Appointment: Alis Muhammad WPtel: [address] [place], [place] [phone] (30 min) Complex 01/12/2019 Patient Education: Patient Medication Summary Completed 01/12/2019 Patient Education: Back Pain Completed 01/12/2019 Appointment: Alis Muhammad WPtel: [address] [place], [place] [phone] (30 min) Complex 12/13/2018 Visit Plan: Edema [...] warmth, discharge. 12/06/2018 Appointment: Alis Muhammad WPtel: [facility] [address] (30 min) Complex 12/06/2018 Patient Education: Patient [...] as indicated 11/15/2018 Appointment: Alis Muhammad WPtel: [facility] [place] [phone] (15 min) Moderate 11/15/2018 Patient Education: Patient [...] ER 10/25/2018 Appointment: Alis Muhammad WPtel: [phone] (15 min) Moderate 10/25/2018 Patient Education: Patient [...] treatment 10/13/2018 Appointment: Alis Muhammad WPtel: [phone] [place] [phone] (15 min) Moderate 10/13/2018 Patient Education: Patient [...] WPtel: [phone] [phone] (30 min) Complex 09/15/2018 Patient Education: Patient [...] not improve 08/15/2018 Appointment: Alis Muhammad WPtel: [facility]9 [phone] (30 min) Complex 08/15/2018 Patient Education: Patient Medication Summary Completed 08/15/2018 Patient Education: Back Pain Completed 08/15/2018 Visit Plan: HTN-onofre induced cough-s top lisinopril -start losartan -monitor blood pressure and follow up in 2 weeks Low back pain-xray lumbar spine and refer for PT 08/01/2018 Appointment: Alis Muhammad WPtel: [facility]0 [phone] (15 min) Moderate 08/01/2018 Patient Education: Patient Medication Summary Completed 08/01/2018 Patient Education: Back Pain Completed 08/01/2018 Care Plan: X-RAY EXAM L-S SPINE 2/3 VWS LOINC : 35112-2 Pending 08/01/2018 Visit Plan: Hypertension - well [...] Scarlett Spring WPtel: [facility] (15 min) Moderate 04/20/2018 Patient Education: Patient [...] care surrogate. 02/09/2018 Appointment: Kassandra Argueta WPtel: [address] [place], [place] [id number] [facility] - Annual Wellness Visit 02/09/2018 [...] night. 12/16/2017 Appointment: Scarlett Spring WPtel: [phone] [facility]66[facility] (15 min) Moderate 12/16/2017 Patient Education: Patient Medication Summary Completed 12/16/2017 Visit Plan: Hypertension - well con sedricked [...] uncontrolled. 08/23/2017 Appointment: Scarlett Spring WPtel: [phone] [facility]66[facility] (15 min) Moderate 08/23/2017 Patient Education: Patient [...] cardiology 02/03/2017 Appointment: Kassandra Argueta WPtel: [phone] - Annual Wellness Visit 02/03/2017 Patient [...] at home. 02/02/2017 Appointment: [phone] (15 min) Moderate 02/02/2017 Patient Education: [...] not improve. 11/26/2016 Appointment: [phone] ([facility]) Complex 11/26/2016 Patient Education: Patient [...] symptoms. 10/07/2016 Appointment: Scarlett Spring [facility]el[phone] [facility] [place] (15 min) Moderate 10/07/2016 Patient Education: Patient Medication Summary Completed 10/07/2016 Patient Education: Obesity Completed 10/07/2016 Patient Education: Hypertension Completed 10/07/2016 Care Plan: VASCULAR STUDY Pending 10/04/2016 Care Plan: X-RAY EXAM OF KNEE [address] [facility] : 51750-9 Pending 10/04/2016 Visit Plan: Hypertension - well [...] for paroxetine 09/16/2016 Appointment: Scarlett Spring WPtel: [facility] [place] (15 min) Moderate 09/16/2016 Patient [...] improve. 09/07/2016 Appointment: [facility] Ar[phone] [place] (10 min) Simple 09/07/2016 Patient Education: [...] Spring WPtel: [phone] [facility] (15 min) Moderate 04/08/2016 Patient Education: Patient [...] Spring WPtel: [phone] [facility] [place] (15 min) Moderate 03/05/2016 Patient Education: [...] Spring WPtel: [phone] [facility] [place] (15 min) Moderate 12/04/2015 Patient Education: [...] allergy spray. 11/18/2015 Appointment: Scarlett Spring WPtel: [address] [place] [address] (15 min) Moderate 11/18/2015 Patient Education: Patient Medication Summary Completed 11/18/2015 Patient Education: Obesity Completed 11/18/2015 Patient Education: Hypertension Completed 11/18/2015 Appointment: Scarlett Spring WPtel: [facility]8 [facility] (15 min) Moderate 11/07/2015 Visit Plan: [...] Visit Plan: MSSA of groin and under ahstsht-jdzujkzak-htsnsp bactrim and call if rash does not [...] report. 08/28/2015 Appointment: Scarlett Spring [facility]Ptel[phone] [facility] (15 min) Moderate 08/28/2015 Patient Education: [...] improving. 07/09/2015 Appointment: Scarlett Spring [facility]Ptel[facility] [phone] [facility] (15 min) Moderate 07/09/2015 Patient Education: [...] not improving. 03/06/2015 Appointment: Scarlett Spring WPtel: [facility] [place] ([place] New Patient 03/06/2015 Patient Education: Patient Medication Summary Completed 03/06/2015 Patient Education: Hypertension Completed 03/06/2015 Instructions Comment MONITOR BLOOD PRESSU RE AND [...] current treatment. Depression - RX for paroxetine XRAY LUMBAR SPINE CHECK LABS UA TODAY [...] Vitamin d def-check with labs today . Medicare Exam - to day we [...] if any worse take two of the metr oprolol succinate [...] flu shot today mammogram order . Atrial fibrillatio n - appt with [...] paperwork for health care surrogate. Ibuprofen 600mg thre e times a s [...] will find out if anyone comes to [place] check UA start probiotic daily . Hypertension [...] or does not improve. . Hypertension - wel l controlled - [...]
--- OUTSIDE RECORDS SUMMARY | 2020-01-23 14:11 | XMS REPORT | CCD ---
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 Name Role Phone PP Unavailable CCM Unavailable Summary Purpose Interface Exchange Insurance Providers Payer name Policy type / Coverage type Covered democrat ID Effective Begin Date Effective End Date WPS Medicare Part B Medicare Part B [id number] Unknown [email or web address] Medicare Part B [id number] Unkn own Family history Mother Diagnosis Age At Onset Hypertension Unknown Heart Attack Unknown Brother Diagnosis Age At Onset Heart disease Unknown Runs in the family Diagnosis Age At Onset Heart disease Unknown Daughter Diagnosis Age At Onset Heart Attack Unknown Hyperlipidemia Unknown Hypertension Unknown Social History Social History Element Codes Description Effective Dates Number of children Unknown 2 daughter lives in [place], son - does not have contact 09/16/[address]: 5961424 Quit over 10 years ago 1990 - previously smoked 2ppd x 25 years. 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 Allergies, Adverse Reactions, Alerts Substance Reaction [...] Date Stop Date Sta tus Fill Instructions Vitamin D2 50,000 un it capsule RxNorm: 4421906 1 Capsule(s) PO QW 01/18/2019 03/18/2019 Active Ambien 10 mg tablet RxNorm: 327664 Tablet(s) TAKE ONE TABLET BY MOUTH AT BE DTIME NEEDED 12/21/2018 04/19/2019 Active mupirocin 2 % topica l ointment RxNorm: 812193 1 Application TOP BID 12/06/2018 12/19/2018 Inactive doxycycline hyclate 100 mg tablet RxNorm: 6803517 1 Tablet(s) PO BID 11/21/2018 11/27/2018 Inactive can exchange for capsule if cheaper doxycycline hyclate 100 mg tablet RxNorm: 1585278 1 Tablet(s) PO BID 11/21/2018 11/20/2018 Inactive simethicone 125 mg c hewable tablet RxNorm: 269232 1 Tablet(s) PO qid pr n 10/25/2018 No Stop Date Active promethazine 25 mg t ablet RxNorm: 283811 1 Tablet(s) PO Q6 PRN 10/25/2018 No Stop Date Active paroxetine 40 mg tablet RxNorm: 9961276 1 Tablet(s) PO daily 10/13/2018 04/10/2019 Active valsartan 160 mg tablet RxNorm: 829237 1 Tablet(s) PO daily 10/13/2018 04/10/2019 Active terazosin 5 mg capsule RxNorm: 260190 TAKE ONE CAPSULE BY MOUTH DAILY 09/23/2018 02/19/2019 Ac tive trazodone 50 mg tablet RxNorm: 529804 TAKE ONE TABLET BY MOUTH DAILY 09/23/2018 03/21/2019 Ac tive Ambien 10 mg tablet RxNorm: 587661 TAKE ONE TABLET BY MOUTH AT BEDTIME N EEDED 09/23/2018 11/20/2018 Inactive losartan 50 mg tablet RxNorm: 454857 1 Tablet(s) PO daily 09/15/2018 10/12/2018 Inactive omeprazole 20 mg cap marina,delayed release RxNorm: 091928 TAKE ONE CAPSULE BY M OUTH EVERY NIGHT AT BEDTIME 09/12/2018 03/10/2019 Active Keflex 500 mg capsule RxNorm: 700203 1 Capsule(s) PO TID 08/18/2018 08/17/2018 Inactive Keflex 500 mg capsule RxNorm: 644230 1 Capsule(s) PO TID 08/18/2018 08/24/2018 Inactive take probiotic while on abx paroxetine 20 mg tablet RxNorm: 5554086 TAKE ONE TABLET BY MOUTH DAILY 08/12/2018 10/12/2018 In active losartan 25 mg tablet RxNorm: 073204 1 Tablet(s) PO daily 08/01/2018 09/14/2018 Inactive losartan 25 mg tablet RxNorm: 242344 1 Tablet(s) PO daily 08/01/2018 10/12/2018 Inactive trazodone 50 mg tablet RxNorm: 641372 TAKE ONE TABLET BY MOUTH DAILY 07/25/2018 09/22/2018 In active Ambien 10 mg tablet RxNorm: 020995 Tablet(s) TAKE ONE TABLET BY MOUTH AT BE DTIME 06/24/2018 09/23/2018 Inactive trazodone 50 mg tablet RxNorm: 190615 TAKE ONE TABLET BY MOUTH DAILY 04/25/2018 07/23/2018 In active Ambien 10 mg tablet RxNorm: 700314 Tablet(s) TAKE ONE TABLET BY MOUTH AT BE DTIME 03/23/2018 06/19/2018 Inactive terazosin 5 mg capsule RxNorm: 859760 TAKE ONE CAPSULE BY MOUTH DAILY 03/14/2018 09/09/2018 In active Ambien 10 mg tablet RxNorm: 570973 Tablet(s) TAKE ONE TABLET BY MOUTH AT BE DTIME 01/18/2018 09/14/2018 Inactive trazodone 50 mg tablet RxNorm: 021623 TAKE ONE TABLET BY MOUTH ONCE DAILY 01/10/2018 03/22/2018 In active trazodone 50 mg tablet RxNorm: 582412 Tablet(s) TAKE ONE TABLET BY MOUTH ONCE DAILY 01/10/2018 04/24/2018 Inactive Ambien 10 mg tablet RxNorm: 376148 Tablet(s) TAKE ONE TABLET BY MOUTH AT BE DTIME 10/22/2017 01/17/2018 Inactive trazodone 50 mg tablet RxNorm: 386000 TAKE ONE TABLET BY MOUTH ONCE DAILY 10/18/2017 01/09/2018 In active omeprazole 20 mg cap marina,delayed release RxNorm: 214578 TAKE ONE CAPSULE BY M OUTH ONCE DAILY AT BEDTIME 08/27/2017 09/11/2018 Inactive trazodone 50 mg tablet RxNorm: 931542 TAKE ONE TABLET BY MOUTH ONCE DAILY 08/18/2017 10/17/2017 In active Ambien 10 mg tablet RxNorm: 450821 Tablet(s) TAKE ONE TABLET BY MOUTH AT BE DTIME 08/18/2017 03/22/2018 Inactive paroxetine 20 mg tablet RxNorm: 9303403 TAKE ONE TABLET BY MOUTH ONCE DAILY 07/27/2017 08/11/2018 In active Ambien 10 mg tablet RxNorm: 995928 Tablet(s) TAKE ONE TABLET BY MOUTH AT BE DTIME 06/23/2017 03/22/2018 Inactive omeprazole 20 mg cap marina,delayed release RxNorm: 493217 TAKE ONE CAPSULE BY M OUTH ONCE DAILY AT BEDTIME 04/23/2017 08/20/2017 Inactive trazodone 50 mg tablet RxNorm: 804055 TAKE ONE TABLET BY MOUTH ONCE DAILY 04/13/2017 08/10/2017 In active terazosin 5 mg capsule RxNorm: 742816 Capsule(s) TAKE ONE CAPSULE BY MOUTH TATA 04/08/2017 03/03/2018 In active Ambien 10 mg tablet RxNorm: 835038 Tablet(s) TAKE ONE TABLET BY MOUTH AT BE DTIME 02/17/2017 03/22/2018 Inactive Tylenol-Codeine #3 3 00 mg-30 mg tablet RxNorm: 753476 1 Tablet(s) PO QID as needed 02/02/2017 11/14/2018 In active metoprolol succinate ER 50 mg tablet,extended release 24 hr RxNorm: 538458 TAKE ONE TABLET BY MOUTH ONCE DAILY 12/23/2016 02/02/2017 Inactive Zithromax Z-Ted 250 mg tablet RxNorm: 810560 1 Tablet(s) PO UD 11/26/2016 02/16/2017 Inactive trazodone 50 mg tablet RxNorm: 588026 TAKE ONE TABLET BY MOUTH ONCE DAILY 11/12/2016 03/11/2017 In active Ambien 10 mg tablet RxNorm: 274875 Tablet(s) TAKE ONE TABLET BY MOUTH AT BE DTIME 10/22/2016 02/15/2017 Inactive paroxetine 20 mg tablet RxNorm: 3137324 1 Tablet(s) PO daily TAKE ONE TABLET BY MOUTH DAILY 09/16/2016 06/12/2017 Inactive meloxicam 7.5 mg tablet RxNorm: 055703 1 Tablet(s) PO daily 09/16/2016 11/14/2016 Inactive Protonix 40 mg table t,delayed release RxNorm: 458211 1 Tablet(s) PO daily 09/16/2016 08/22/2017 In active sucralfate 1 gram ta blet RxNorm: 062791 1 Tablet(s) PO TID 09/16/2016 08/22/2017 Inactive Ambien 10 mg tablet RxNorm: 141955 Tablet(s) TAKE ONE TABLET BY MOUTH AT DTIMS 08/24/2016 03/22/2018 Inactive trazodone 50 mg tablet RxNorm: 359400 Tablet(s) TAKE ONE TABLET BY MOUTH DAILY 07/29/2016 11/11/2016 In active Ambien 10 mg tablet RxNorm: 166299 TAKE ONE TABLET BY MOUTH AT BEDTIME 06/23/2016 03/22/2018 In active Ambien 10 mg tablet RxNorm: 416238 Tablet(s) TAKE ONE TABLET BY MOUTH EVERY NIGHT AT BEDTIME 06/22/2016 06/23/2016 Inactive Lasix 40 mg tablet RxNorm: 297621 1 Tablet(s) PO daily as needed for swell ing 04/03/2016 09/15/2016 In active potassium chloride E R 20 mEq tablet,extended release RxNorm: 645324 1 Tablet(s) PO daily for swelling take with lasix as needed 04/03/2016 09/15/2016 Inactive Ambien 10 mg tablet RxNorm: 283700 Tablet(s) TAKE ONE TABLET BY MOUTH EVERY NIGHT AT BEDTIME 04/03/2016 03/22/2018 Inactive omeprazole 20 mg cap marina,delayed release RxNorm: 759399 TAKE ONE CAPSULE BY M OUTH EVERY NIGHT AT BEDTIME 03/31/2016 09/15/2016 Inactive paroxetine 20 mg tablet RxNorm: 2972615 TAKE ONE TABLET BY MOUTH DAILY 03/31/2016 09/15/2016 In active trazodone 50 mg tablet RxNorm: 914345 TAKE ONE TABLET BY MOUTH DAILY 03/20/2016 07/28/2016 In active terazosin 5 mg capsule RxNorm: 395470 TAKE ONE CAPSULE BY MOUTH DAILY 03/06/2016 10/06/2016 In active Ambien 10 mg tablet RxNorm: 082636 Tablet(s) TAKE ONE TABLET BY MOUTH EVERY NIGHT AT BEDTIME 01/17/2016 04/02/2016 Inactive loratadine 10 mg tablet RxNorm: 938399 1 Tablet(s) PO daily 01/15/2016 09/15/2016 Inactive mupirocin 2 % topica l ointment RxNorm: 345963 1 Application TOP TID 11/18/2015 12/01/2015 Inactive metoprolol succinate ER 50 mg tablet,extended release 24 hr RxNorm: 770951 1 Tablet(s) PO daily 11/18/2015 11/11/2016 Inactive loratadine 10 mg tablet RxNorm: 459956 1 Tablet(s) PO daily 11/18/2015 01/14/2016 Inactive Lasix 40 mg tablet RxNorm: 850737 1 Tablet(s) PO daily as needed for swell ing 10/30/2015 11/28/2015 In active potassium chloride E R 20 mEq tablet,extended release RxNorm: 004623 1 Tablet(s) PO daily for swelling take with lasix as needed 10/30/2015 11/28/2015 Inactive Tylenol-Codeine #3 3 00 mg-30 mg tablet RxNorm: 926469 1 Tablet(s) PO QID as needed 10/25/2015 02/01/2017 In active Ambien 10 mg tablet RxNorm: 247687 Tablet(s) TAKE ONE TABLET BY MOUTH EVERY NIGHT AT BEDTIME 10/18/2015 03/22/2018 Inactive Diflucan 150 mg tablet RxNorm: 526115 1 Tablet(s) PO daily 10/01/2015 12/03/2015 Inactive Lasix 20 mg tablet RxNorm: 713889 1 Tablet(s) PO PRN fror swelling 09/27/2015 10/29/2015 In active potassium chloride E R 10 mEq capsule,extended release RxNorm: 965234 1 Capsule(s) PO PRN for swelling take with lasix 09/27/2015 10/29/2015 Inactive Bactrim DS 800 mg-16 0 mg tablet RxNorm: 374897 1 Tablet(s) PO BID 09/02/2015 09/11/2015 Inactive Bactrim DS 800 mg-16 0 mg tablet RxNorm: 272793 1 Tablet(s) PO BID 09/02/2015 09/01/2015 Inactive nystatin 100,000 uni t/gram topical cream RxNorm: 819052 1 Gram(s) TOP TID 08/28/2015 09/26/2015 In active Diflucan 150 mg tablet RxNorm: 971074 1 Tablet(s) PO daily 08/28/2015 09/06/2015 Inactive betamethasone diprop ionate 0.05 % topical ointment RxNorm: 008475 1 Application TOP TID to affected area 08/02/2015 02/01/2017 Inactive nystatin 100,000 uni t/gram topical powder RxNorm: 615166 1 Gram(s) TOP QID 07/09/2015 08/01/2015 In active Ambien 10 mg tablet RxNorm: 323638 1 Tablet(s) PO QHS 06/19/2015 06/18/2015 Inactive Ambien 10 mg tablet RxNorm: 094498 TAKE ONE TABLET BY MOUTH EVERY NIGHT AT BEDTIME 06/19/2015 09/16/2015 Inactive Vitamin D2 50,000 un it capsule RxNorm: 592668 1 Capsule(s) PO QW 03/07/2015 03/06/2015 Inactive Vitamin D2 50,000 un it capsule RxNorm: 1388164 1 Capsule(s) PO QW 03/07/2015 05/05/2015 Inactive terazosin 5 mg capsule RxNorm: 966430 1 Capsule(s) PO daily 03/06/2015 02/28/2016 Inactive [SAVINGS FOR NON-COVERED DRUGS -- BIN:00 6529, PCN: [id number], Group: XXXXX, ID# [id number], Questions: . THIS IS NOT INSURANCE.] trazodone 50 mg tablet RxNorm: 592040 1 Tablet(s) PO daily 03/06/2015 02/28/2016 Inactive paroxetine 20 mg tablet RxNorm: 1874492 1 Tablet(s) PO daily 03/06/2015 02/28/2016 Inactive Tylenol-Codeine #3 3 00 mg-30 mg tablet RxNorm: 358470 1 Tablet(s) PO QID as needed 03/06/2015 07/02/2015 In active amlodipine 10 mg tablet RxNorm: 358628 1 Tablet(s) PO daily 03/06/2015 11/17/2015 Inactive metoprolol succinate ER 25 mg tablet,extended release 24 hr RxNorm: 577346 1 Tablet(s) PO daily 03/06/2015 11/17/2015 Inactive omeprazole 20 mg cap marina,delayed release RxNorm: 324565 1 Capsule(s) PO QHS 03/06/2015 02/28/2016 In active omeprazole 20 mg cap marina,delayed release RxNorm: 522823 1 Capsule(s) PO QHS 01/31/2015 01/30/2015 In active omeprazole 20 mg cap marina,delayed release RxNorm: 816396 1 Capsule(s) PO QHS 01/31/2015 01/30/2015 In active omeprazole 20 mg cap marina,delayed release RxNorm: 614139 1 Capsule(s) PO QHS 01/31/2015 03/05/2015 In active Ambien 10 mg tablet RxNorm: 046391 1 Tablet(s) PO QHS 12/25/2014 04/21/2015 Inactive paroxetine 20 mg tablet RxNorm: 011683 1 Tablet(s) PO daily 12/25/2014 12/24/2014 Inactive Ambien 10 mg tablet RxNorm: 624183 1 Tablet(s) PO QHS 12/25/2014 12/24/2014 Inactive paroxetine 20 mg tablet RxNorm: 276139 1 Tablet(s) PO daily 12/25/2014 03/05/2015 Inactive terazosin 5 mg capsule RxNorm: 255366 1 Capsule(s) PO daily 11/23/2014 03/05/2015 Inactive [SAVINGS FOR NON-COVERED DRUGS -- BIN:00 [facility], N: ASPROD1, Group: XXXXX, ID# [id number], Questions: . THIS IS NOT INSURANCE.] terazosin 5 mg capsule RxNorm: 826449 1 Capsule(s) PO daily 11/23/2014 11/22/2014 Inactive Lasix 20 mg tablet RxNorm: 761132 1 Tablet(s) PO daily No Start Date Active K-Dur 10 mEq tablet, extended release RxNorm: 628358 1 Tablet(s) PO daily No Start Date Active hydrochlorothiazide 25 mg tablet RxNorm: 322560 1 Tablet(s) PO daily No Start Date Active Vitamin D3 2,000 uni t tablet RxNorm: 316530 1 Tablet(s) PO daily No Start Date Active amiodarone 200 mg ta blet RxNorm: 546599 1 Tablet(s) PO BID No Start Date Active Zetia 10 mg tablet RxNorm: 645374 1 Tablet(s) PO daily No Start Date Active Lipitor 80 mg tablet RxNorm: 774389 1/2 Tablet(s) PO daily No Start Date Active Coumadin 4 mg tablet RxNorm: 805078 1 Tablet(s) PO daily No Start Date Active metoprolol succinate ER 25 mg tablet,extended release 24 hr RxNorm: 627805 1 Tablet(s) PO daily No Start Date 03/05/2015 Inactive Entresto 49 mg-51 mg tablet RxNorm: 3021811 1 Tablet(s) PO BID No Start Date 04/19/2018 Inactive sotalol 80 mg tablet RxNorm: 7657235 1 Tablet(s) PO BID No Start Date 04/19/2018 Inactive betamethasone diprop ionate 0.05 % topical ointment RxNorm: 129207 1 Application TOP TID to affected area No Start Date 08/01/2015 Inactive trazodone 50 mg tablet RxNorm: 201385 1 Tablet(s) PO daily No Start Date 03/05/2015 Inactive potassium chloride E R 10 mEq capsule,extended release RxNorm: 328539 1 Capsule(s) PO PRN for swelling take with lasix No Start Date 09/26/2015 Inactive Eliquis 5 mg tablet RxNorm: 8459741 1 Tablet(s) PO BID No Start Date 09/14/2018 Inactive amlodipine 10 mg tablet RxNorm: 013120 1 Tablet(s) PO daily No Start Date 03/05/2015 Inactive isosorbide mononitra te ER 30 mg tablet,extended release 24 hr RxNorm: 586539 1 Tablet(s) PO daily No Start Date 08/22/2017 Inactive aspirin 81 mg tablet ,delayed release RxNorm: 611423 1 Tablet(s) PO daily No Start Date 02/02/2017 Inactive Lasix 20 mg tablet RxNorm: 507678 1 Tablet(s) PO PRN fror swelling No Start Date 09/26/2015 Inactive lisinopril 5 mg tablet RxNorm: 241829 1 Tablet(s) PO daily No Start Date 07/31/2018 Inactive Crestor 40 mg tablet RxNorm: 057590 1 Tablet(s) PO daily No Start Date 09/15/2016 Inactive metoprolol succinate ER 100 mg tablet,extended release 24 hr RxNorm: 053803 1 Tablet(s) PO daily No Start Date [...] Code Item Item Code Result Date Pt [id number] PT 24.7 seconds 01/12/2019 Pt Exw9634 INR 2.3 01/12/2019 Pt Bek6002 Low Intensity - 1.5-2.0 01/12/2019 Pt Pfu7467 Mod intensity - 2.0-3.0 01/12/2019 Pt Koy7151 Hi intensity - 3.0-4.0 01/12/2019 Cbc With [...] 27.0 pg 01/12/2019 Cbc With Differential Ord2 Parker% 11.1 % 01/12/2019 Cbc With Differential Ord2 [...] 0.92 K/ul 01/12/2019 Cbc With Differential Ord2 Parker ABS# 0.4 K/ul 01/12/2019 Cbc With Differential Ord2 Eos ABS# 0.1 K/ul 01/12/2019 Cbc With Differential Ord2 Baso ABS# 0.0 K/ul 01/12/2019 Comp Metabolic Evn237 NA 141 mEq/L 01/12/2019 Comp Metabolic Tnj610 K 3.8 mEq/L 01/12/2019 Comp Metabolic Sha248 CL 105 mEq/L 01/12/2019 Comp Metabolic Mdf941 CO2 26.0 mEq/L 01/12/2019 Comp Metabolic Dgh277 AN ION GAP 14 01/12/2019 Comp Metabolic Mxo833 GL UCOSE 112 mg/dL 01/12/2019 Comp Metabolic Kyw369 Cr eat 1.0 mg/dL 01/12/2019 Comp Metabolic Fjq659 eG FR 60 ml/min/1.73m2 01/12 Comp Metabolic Zzy569 BUN 14 mg/dL 01/12/2019 Comp Metabolic Laa214 B/ C Ratio 14.4 Ratio 01/12/2019 Comp Metabolic Vmq501 CA LCIUM 8.8 mg/dL 01/12/2019 Comp Metabolic Nbx540 AL K PHOS 60 U/L 01/12/2019 Comp Metabolic Rui170 T(SGOT) 22 U/L 01/12/2019 Comp Metabolic Rho322 AL T(SGPT) 22 U/L 01/12/2019 Comp Metabolic Acb215 BI LI T 0.5 mg/dL 01/12/2019 Comp Metabolic Bqe040 AL BUMIN 3.9 g/dL 01/12/2019 Comp Metabolic Lzl152 TP RO 6.5 g/dL 01/12/2019 Comp Metabolic Rsc675 GL OB 2.6 g/dL 01/12/2019 Comp Metabolic Aas178 A/ G Ratio 1.5 Ratio 01/12/2019 Comp Metabolic Ndd284 Os mo 282 mOsmo 01/12/2019 Vitamin D 25 Oh Xwa3757 VITAMIN D, 25 HYDROXY 30.62 ng/mL 01/12/2019 Urine Culture Ucult Comp lete >100,000 col/ml aerobic grow th sent to ref lab 11/16/2018 Culture Urine [id number] URI NE CULTURE SEE NOTES 08/22/2018 Culture Urine [id number] Con tinued Results 08/22/2018 Urine Culture Ucult Comp lete >100,000 col/ml aerobic grow th sent to ref lab 08/19/2018 Comp Metabolic Fhw908 NA 140 mEq/L 08/01/2018 Comp Metabolic Yzf284 K 4.2 mEq/L 08/01/2018 Comp Metabolic Atc321 CL 102 mEq/L 08/01/2018 Comp Metabolic Uko150 CO2 27.0 mEq/L 08/01/2018 Comp Metabolic Xvd086 AN ION GAP 15 08/01/2018 Comp Metabolic Sxe471 GL UCOSE 107 mg/dL 08/01/2018 Comp Metabolic Lot980 Cr eat 1.0 mg/dL 08/01/2018 Comp Metabolic Bng898 eG FR 58 ml/min/1.73m2 08/01 Comp Metabolic Fhv250 BUN 10 mg/dL 08/01/2018 Comp Metabolic Ymm740 B/ C Ratio 10.0 Ratio 08/01/2018 Comp Metabolic Pun766 CA LCIUM 8.9 mg/dL 08/01/2018 Comp Metabolic Cfq507 AL K PHOS 68 U/L 08/01/2018 Comp Metabolic Fnl224 T(SGOT) 18 U/L 08/01/2018 Comp Metabolic Irc149 AL T(SGPT) 14 U/L 08/01/2018 Comp Metabolic Uys090 BI LI T 0.5 mg/dL 08/01/2018 Comp Metabolic Erk542 AL BUMIN 4.0 g/dL 08/01/2018 Comp Metabolic Xhq535 TP RO 6.3 g/dL 08/01/2018 Comp Metabolic Neg410 GL OB 2.3 g/dL 08/01/2018 Comp Metabolic Pxr898 A/ G Ratio 1.7 Ratio 08/01/2018 Comp Metabolic Rbe062 Os mo 279 mOsmo 08/01/2018 Tsh Ord6 [...] 27.3 pg 08/01/2018 Cbc With Differential Ord2 Parker% 9.8 % 08/01/2018 Cbc With Differential Ord2 [...] 0.79 K/ul 08/01/2018 Cbc With Differential Ord2 Parker ABS# 0.4 K/ul 08/01/2018 Cbc With Differential Ord2 Eos ABS# 0.1 K/ul 08/01/2018 Cbc With Differential Ord2 Baso ABS# 0.0 K/ul 08/01/2018 Lipid Ord30 CHOL 234 mg/dL 08/01/2018 Lipid Ord30 HDL 69.0 mg/dl 08/01/2018 Lipid Ord30 TRIG 57 mg/dL 08/01/2018 Lipid Ord30 LDL 154 mg/dL 08/01/2018 Lipid Ord30 C/HDL 3.4 Ratio 08/01/2018 Comp Metabolic Esd988 NA 137 mEq/L 09/30/2015 Comp Metabolic Bej886 K 4.5 mEq/L 09/30/2015 Comp Metabolic Jaq350 CL 102 mEq/L 09/30/2015 Comp Metabolic Yaj624 CO2 26.0 mEq/L 09/30/2015 Comp Metabolic Ncw994 AN ION GAP 14 09/30/2015 Comp Metabolic Cie941 GL UCOSE 89 mg/dL 09/30/2015 Comp Metabolic Gur516 Cr eat 0.8 mg/dL 09/30/2015 Comp Metabolic Bna729 eG FR 79 ml/min/1.73m2 09/29 Comp Metabolic Gbo369 BUN 14 mg/dL 09/30/2015 Comp Metabolic Xgh878 B/ C Ratio 18.2 Ratio 09/30/2015 Comp Metabolic Kle008 CA LCIUM 8.9 mg/dL 09/30/2015 Comp Metabolic Nmw498 AL K PHOS 65 U/L 09/30/2015 Comp Metabolic Lva826 T(SGOT) 26 U/L 09/30/2015 Comp Metabolic Xqw496 AL T(SGPT) 18 U/L 09/30/2015 Comp Metabolic Wme606 BI LI T 0.6 mg/dL 09/30/2015 Comp Metabolic Ghb143 AL BUMIN 3.8 g/dL 09/30/2015 Comp Metabolic Vox320 TP RO 6.6 g/dL 09/30/2015 Comp Metabolic Ecw069 GL OB 2.8 g/dL 09/30/2015 Comp Metabolic Sqy805 A/ G Ratio 1.4 Ratio 09/30/2015 Comp Metabolic Gmi901 Os mo 274 mOsmo 09/30/2015 Cbc With [...] 27.7 pg 09/30/2015 Cbc With Differential Ord2 Parker% 10.7 % 09/30/2015 Cbc With Differential Ord2 [...] 1.10 K/ul 09/30/2015 Cbc With Differential Ord2 Parker ABS# 0.6 K/ul 09/30/2015 Cbc With Differential Ord2 Eos ABS# 0.2 K/ul 09/30/2015 Cbc With Differential Ord2 Baso ABS# 0.0 K/ul 09/30/2015 Cbc With Differential Ord2 New Analyzer Notice Please note new ref ranges s tarting 08-07-2015 due to implemntation of new five part differential hematolgy analyzer. 09/30/2015 Tsh Ord6 hTSH II 1.05 uIU/mL 03/06/2015 Comp Metabolic Sxd608 NA 137 mEq/L 03/06/2015 Comp Metabolic Vnk924 K 4.3 mEq/L 03/06/2015 Comp Metabolic Ppk909 CL 104 mEq/L 03/06/2015 Comp Metabolic Cce996 CO2 28.0 mEq/L 03/06/2015 Comp Metabolic Ggb821 AN ION GAP 9 03/06/2015 Comp Metabolic Cvz057 GL UCOSE 93 mg/dL 03/06/2015 Comp Metabolic Nxg959 Cr eat 0.8 mg/dL 03/06/2015 Comp Metabolic Cgv375 eG FR 81 ml/min/1.73m2 03/06 Comp Metabolic Veo873 BUN 12 mg/dL 03/06/2015 Comp Metabolic Ceq899 B/ C Ratio 16.0 Ratio 03/06/2015 Comp Metabolic Wep198 CA LCIUM 8.9 mg/dL 03/06/2015 Comp Metabolic Lav186 AL K PHOS 56 U/L 03/06/2015 Comp Metabolic Dzj834 T(SGOT) 22 U/L 03/06/2015 Comp Metabolic Eji574 AL T(SGPT) 15 U/L 03/06/2015 Comp Metabolic Xzt779 BI LI T 0.4 mg/dL 03/06/2015 Comp Metabolic Frj618 AL BUMIN 4.0 g/dL 03/06/2015 Comp Metabolic Jos119 TP RO 6.5 g/dL 03/06/2015 Comp Metabolic Avh778 GL OB 2.5 g/dL 03/06/2015 Comp Metabolic Pbt335 A/ G Ratio 1.6 Ratio 03/06/2015 Comp Metabolic Slc319 Os mo 273 mOsmo 03/06/2015 Vitamin D 25 Oh Npl0868 VITAMIN D, 25 HYDROXY 28.14 ng/mL 03/06/2015 [...] distress 08/01/2018 None Full Exam - General 1995 Constitutional general appearance Overall: well nourished 08/01/2018 None Full Exam - General 1994 Constitutional general appearance Hygiene/Attention to Grooming: good hygiene 08/01/2018 None Full Exam - General 1994 Eyes conjunctiva/eyelids Overall: conjunctiva clear 08/01/2018 None Full Exam - General 1995 Eyes conjunctiva/eyelids Overall: cornea clear 08/01/2018 None [...] Date URINALYSIS NONAUTO W /O SCOPE CPT-4: 20880 01/12/2019 URINALYSIS NONAUTO W /O SCOPE CPT-4: 99064 12/06/2018 URINALYSIS NONAUTO W /O SCOPE CPT-4: 30057 11/15/2018 URINALYSIS NONAUTO W /O SCOPE CPT-4: 67954 08/18/2018 ADMIN INFLUENZA VIRU S VAC CPT-4: G0008 04/20/2018 FLU VACC PRSV FREE I NC ANTIG Formatting Model/CDA Sections, Assigned to/Amparo Mims CPT-4: 06865Cscujnd 04/20/2018 PPPS, SUBSEQ VISIT CPT- 4: G0439 02/09/2018 PPPS, SUBSEQ VISIT CPT- 4: G0439 02/03/2017 ADMIN INFLUENZA VIRU S VAC CPT-4: G0008 04/08/2016 ADMIN PNEUMOCOCCAL V ACCINE SNOMED CT: 01123737 CPT-4: G0009 04/08/2016 PNEUMOCOCCAL VACC [address]: 03080980 CPT-4: 83461 04/08/2016 FLU VACC PRSV FREE I NC ANTIG CPT-4: 25737 04/08/2016 Vital Signs Date Vital 01/12/2019 Blood Pressure 1: 128/68 Code: 8480-6 BMI: 41.2 Code: 54632-5 Heart Rate 1: 82 bpm Height: 5'7" SpO2: 92% Weight: 263 lbs 12/06/2018 Blood Pressure 1: 118/70 Code: 8480-6 BMI: 41.5 Code: 75836-5 Heart Rate 1: 97 bpm Height: 5'7" SpO2: 96% Weight: 265 lbs 11/15/2018 Blood Pressure 1: 144/76 Code: 8480-6 BMI: 42.3 Code: 96339-8 Heart Rate 1: 82 bpm Height: 5'7" SpO2: 96% Weight: 270 lbs 10/25/2018 Blood Pressure 1: 128/80 Code: 8480-6 BMI: 42.0 Code: 70153-5 Heart Rate 1: 93 bpm Height: 5'7" SpO2: 95% Weight: 268 lbs 10/13/2018 Blood Pressure 1: 162/76 Code: 8480-6 BMI: 42.0 Code: 67014-2 Heart Rate 1: 71 bpm Height: 5'7" SpO2: 96% Weight: 268 lbs 09/15/2018 Blood Pressure 1: 154/86 Code: 8480-6 BMI: 42.9 Code: 20208-4 Heart Rate 1: 88 bpm Height: 5'7" SpO2: 94% Weight: 274 lbs 08/15/2018 Blood Pressure 1: 140/90 Code: 8480-6 BMI: 40.7 Code: 13190-6 Heart Rate 1: 70 bpm Height: 5'7" SpO2: 93% Weight: 260 lbs 08/01/2018 Blood Pressure 1: 130/70 Code: 8480-6 BMI: 40.7 Code: 95646-5 Heart Rate 1: 80 bpm Height: 5'7" SpO2: 93% Weight: 260 lbs 04/20/2018 Blood Pressure 1: 128/68 Code: 8480-6 BMI: 41.7 Code: 18465-7 Heart Rate 1: 85 bpm Height: 5'7" SpO2: 94% Weight: 266 lbs 02/09/2018 Blood Pressure 1: 118/70 Code: 8480-6 BMI: 42.1 Code: 40982-1 Heart Rate 1: 58 bpm Height: 5'7" SpO2: 94% Weight: 269 lbs 12/16/2017 Blood Pressure 1: 132/86 Code: 8480-6 BMI: 42.7 Code: 77743-4 Heart Rate 1: 63 bpm Height: 5'7" SpO2: 94% Weight: 272 lbs 14 o z 08/23/2017 Blood Pressure 1: 150/82 Code: 8480-6 BMI: 42.0 Code: 06157-6 Heart Rate 1: 66 bpm Height: 5'7" SpO2: 96% Weight: 268 lbs 02/03/2017 Blood Pressure 1: 138/72 Code: 8480-6 BMI: 41.2 Code: 97481-5 Heart Rate 1: 96 bpm Height: 5'7" SpO2: 97% Weight: 263 lbs 02/02/2017 Blood Pressure 1: 140/90 Code: 8480-6 BMI: 41.2 Code: 57681-2 Heart Rate 1: 103 bpm Height: 5'7" SpO2: 94% Weight: 263 lbs 11/26/2016 Blood Pressure 1: 152/88 Code: 8480-6 BMI: 41.0 Code: 91446-0 Heart Rate 1: 71 bpm Height: 5'7" SpO2: 94% Temperature: 37.7 (C ) / 99.8 (F) Weight: 262 lbs 10/07/2016 Blood Pressure 1: 148/82 Code: 8480-6 BMI: 41.7 Code: 36708-4 Heart Rate 1: 58 bpm Height: 5'7" SpO2: 96% Weight: 266 lbs 09/16/2016 Blood Pressure 1: 122/70 Code: 8480-6 BMI: 42.0 Code: 21240-5 Heart Rate 1: 65 bpm Height: 5'7" SpO2: 96% Weight: 268 lbs 09/07/2016 Blood Pressure 1: 154/60 Code: 8480-6 BMI: 42.3 Code: 15519-8 Heart Rate 1: 101 bpm Height: 5'7" SpO2: 97% Weight: 270 lbs 04/08/2016 Blood Pressure 1: 128/70 Code: 8480-6 BMI: 41.4 Code: 73970-4 Heart Rate 1: 62 bpm Height: 5'7" SpO2: 95% Weight: 264 lbs 8 oz 03/05/2016 Blood Pressure 1: 144/78 Code: 8480-6 Blood Pressure 1: 139/72 Code: 8480-6 BMI: 41.9 Code: 19732-0 Heart Rate 1: 71 bpm Height: 5'7" SpO2: 93% Weight: 267 lbs 8 oz 12/04/2015 Blood Pressure 1: 132/70 Code: 8480-6 BMI: 41.3 Code: 04815-9 Heart Rate 1: 56 bpm Height: 5'7" SpO2: 96% Weight: 264 lbs 11/18/2015 Blood Pressure 1: 138/72 Code: 8480-6 BMI: 41.0 Code: 12195-5 Heart Rate 1: 85 bpm Height: 5'7" SpO2: 93% Weight: 262 lbs 09/30/2015 Blood Pressure 1: 128/76 Code: 8480-6 BMI: 41.2 Code: 49605-5 Heart Rate 1: 70 bpm Height: 5'7" SpO2: 93% Weight: 263 lbs 09/09/2015 Blood Pressure 1: 138/80 Code: 8480-6 BMI: 40.3 Code: 71358-2 Heart Rate 1: 84 bpm Height: 5'7" SpO2: 95% Weight: 257 lbs 08/28/2015 Blood Pressure 1: 122/72 Code: 8480-6 BMI: 39.6 Code: 84146-4 Heart Rate 1: 75 bpm Height: 5'7" SpO2: 96% Weight: 253 lbs 07/09/2015 Blood Pressure 1: 140/78 Code: 8480-6 Blood Pressure 1: 135/78 Code: 8480-6 BMI: 39.5 Code: 86079-1 Heart Rate 1: 62 bpm Height: 5'7" SpO2: 95% Weight: 252 lbs 03/06/2015 Blood Pressure 1: 142/88 Code: 8480-6 BMI: 39.3 Code: 80584-9 Heart Rate 1: 65 bpm Height: 5'7" [...] rs ago 10/25/2018 None Location in the [facility] area 10/25/2018 None Quality burning 10/25/2018 [...] Encounters Encounter Performer Loca tion Codes Date ([id number]) 64333 EST. P ATIENT, LEVEL IV Diagnosis: Essential (primary) hypertension[ICD10: I10] Diagnosis: Chronic atrial fibrillation[ICD10: I48.2] Diagnosis: Localized edema[ICD10: R60.0] Diagnosis: Dysuria[ICD10: R30.0] Diagnosis: Low back pain[ICD10: M54.5] Diagnosis: Vitamin D deficiency, unspecified[ICD10: E55.9] Alis Spring MD, [facility] CPT-4: 02231 01/12/2019 ([id number]) 10998 EST. P ATIENT, LEVEL IV Diagnosis: Localized edema[ICD10: R60.0] Diagnosis: Dysuria[ICD10: R30.0] Diagnosis: Cellulitis of abdominal wall[ICD10: L03.311] Alis Spring MD, [facility] CPT-4: 40902 12/06/2018 ([id number]) 29625 EST. P ATIENT, LEVEL III Diagnosis: Dysuria[ICD10: R30.0] Diagnosis: Essential (primary) hypertension[ICD10: I10] Diagnosis: Major depressive disorder, recurrent, moderate[ICD10: F33.1] Alis Spring MD, [facility] CPT-4: 01723 11/15/2018 ([id number]) 49999 EST. P ATIENT, LEVEL IV Diagnosis: Eructation[ICD10: R14.2] Diagnosis: Nausea[ICD10: R11.0] Diagnosis: Chest pain, unspecified[ICD10: R07.9] Diagnosis: Diarrhea, unspecified[ICD10: R19.7] Alis Spring MD, [facility] CPT-4: 94048 10/25/2018 ([id number]) 16954 EST. P ATIENT, LEVEL IV Diagnosis: Essential (primary) hypertension[ICD10: I10] Diagnosis: Low back pain[ICD10: M54.5] Diagnosis: Major depressive disorder, recurrent, moderate[ICD10: F33.1] Alis Spring MD, [facility] CPT-4: 19962 10/13/2018 ([id number]) 14822 EST. P ATIENT, LEVEL IV Diagnosis: Essential (primary) hypertension[ICD10: I10] Diagnosis: Dysuria[ICD10: R30.0] Diagnosis: Low back pain[ICD10: M54.5] Alis Spring MD, [facility] CPT- 4: 05746 09/15/2018 ([id number]) 44201 EST. P ATIENT, LEVEL III Diagnosis: Essential (primary) hypertension[ICD10: I10] Diagnosis: Low back pain[ICD10: M54.5] Alis Spring MD, [facility] CPT- 4: 52294 08/15/2018 ([id number]) 19557 EST. P ATIENT, LEVEL III Diagnosis: Essential (primary) hypertension[ICD10: I10] Diagnosis: Cough[ICD10: R05] Diagnosis: Low back pain[ICD10: M54.5] Alis Spring MD, [facility] CPT- 4: 63246 08/01/2018 ([id number]) 69008 EST. P ATIENT, LEVEL IV Diagnosis: Encounter for immunization[ICD10: Z23] Diagnosis: Essential (primary) hypertension[ICD10: I10] Diagnosis: Chronic atrial fibrillation[ICD10: I48.2] Diagnosis: Major depressive disorder, recurrent, mild[ICD10: F33.0] Scarlett Spring MD, [facility] CPT-4: 90597 04/20/2018 ([id number]) 57527 EST. P ATIENT, LEVEL IV Diagnosis: Essential (primary) hypertension[ICD10: I10] Diagnosis: Obstructive sleep apnea (adult) (pediatric)[ICD10: G47.33] Diagnosis: Chronic atrial fibrillation[ICD10: I48.2] Scarlett Spring MD, [facility] CPT-4: 37827 12/16/2017 ([id number]) 31999 EST. P ATIENT, LEVEL IV Diagnosis: Essential (primary) hypertension[ICD10: I10] Diagnosis: Chronic atrial fibrillation[ICD10: I48.2] Scarlett Spring MD, C CPT-4: 14100 08/23/2017 ([id number]) 85980 EST. P ATIENT, LEVEL IV Diagnosis: Paroxysmal atrial fibrillation[ICD10: I48.0] Diagnosis: Essential (primary) hypertension[ICD10: I10] Scarlett Spring MD, [facility] CPT-4: 25087 02/02/2017 65969 EST. PATIENT, LEVEL III Diagnosis: Acute laryngopharyngitis[ICD10: J06.0] Diagnosis: Cough[ICD10: R05] Diagnosis: Pleurodynia[ICD10: R07.81] Diagnosis: Other dorsalgia[ICD10: M54.89] Kassandra Spring MD, [facility] CPT-4: 04301 11/26/2016 ([id number]) 22671 EST. P ATIENT, LEVEL IV Diagnosis: Essential (primary) hypertension[ICD10: I10] Diagnosis: Pain in left knee[ICD10: M25.562] Diagnosis: Low back pain[ICD10: M54.5] Diagnosis: Major depressive disorder, recurrent, moderate[ICD10: F33.1] Scarlett Spring MD, [facility] CPT-4: 20445 10/07/2016 ([id number]) 45664 EST. P ATIENT, LEVEL IV Diagnosis: Essential (primary) hypertension[ICD10: I10] Diagnosis: Rash and other nonspecific skin eruption[ICD10: R21] Diagnosis: Major depressive disorder, recurrent, mild[ICD10: F33.0] Scarlett Spring MD, [facility] CPT-4: 42985 09/16/2016 [id number] EST. PATIENT, LEVEL IV Diagnosis: Pain in left lower leg[ICD10: M79.662] Diagnosis: Pain in left knee[ICD10: M25.562] Kassandra Spring MD, [facility] CPT-4: 91249 09/07/2016 ([id number]) 26639 EST. P ATIENT, LEVEL IV Diagnosis: Encounter for immunization[ICD10: Z23] Diagnosis: Essential (primary) hypertension[ICD10: I10] Diagnosis: Mixed hyperlipidemia[ICD10: E78.2] Scarlett Spring MD, [facility] CPT- 4: 75140 04/08/2016 ([id number]) 85204 EST. P ATIENT, LEVEL III Diagnosis: Essential (primary) hypertension[ICD10: I10] Diagnosis: Shortness of breath[ICD10: R06.02] Scarlett Spring MD, [facility] CPT- 4: 87911 03/05/2016 ([id number]) 87120 EST. P ATIENT, LEVEL III Diagnosis: Chronic obstructive pulmonary disease, unspecified[ICD10: J44.9] Scarlett Spring MD, [facility] CPT-4: 62973 12/04/2015 ([id number]) 23269 EST. P ATIENT, LEVEL IV Diagnosis: Essential (primary) hypertension[ICD10: I10] Diagnosis: Allergic rhinitis due to pollen[ICD10: J30.1] Scarlett Spring MD, C CPT-4: 83722 11/18/2015 ([id number]) 27759 EST. P ATIENT, LEVEL IV Diagnosis: Localized edema[ICD10: R60.0] Diagnosis: Dysuria[ICD10: R30.0] Diagnosis: Essential (primary) hypertension[ICD10: I10] Diagnosis: Nausea[ICD10: R11.0] Alis Spring MD, [facility] CPT-4: 22308 09/30/2015 ([id number]) 30216 EST. P ATIENT, LEVEL II Diagnosis: Methicillin susceptible Staphylococcus aureus infection as the cause of diseases classified elsewhere[ICD10: B95.61] Diagnosis: Methicillin susceptible Staphylococcus aureus infection, unspecified site[ICD10: A49.01] Alis Spring MD, [facility] CPT-4: 27222 09/09/2015 ([id number]) 94557 EST. P ATIENT, LEVEL III Diagnosis: Dermatophytosis, unspecified[ICD10: B35.9] Diagnosis: Rash and other nonspecific skin eruption[ICD10: R21] Scarlett Spring MD, LL C CPT-4: 94064 08/28/2015 ([id number]) 70617 EST. P ATIENT, LEVEL IV Diagnosis: Essential (primary) hypertension[ICD10: I10] Diagnosis: Gastro-esophageal reflux disease without esophagitis[ICD10: K21.9] Diagnosis: Other dorsalgia[ICD10: M54.89] Scarlett Spring MD, [facility] CPT-4: 05879 07/09/2015 ([id number]) OFFICE VISI T, NEW - LEVEL 4 Diagnosis: ESSENTIAL HYPERTENSION[ICD9: 401.9] Diagnosis: Osteoporosis[ICD9: 733.00] Diagnosis: Back pain[ICD9: 724.5] Diagnosis: Insomnia[ICD9: 780.52] Diagnosis: ESOPHAGEAL REFLUX[ICD9: 530.81] Scarlett Spring MD, [facility] CPT-4: 12465 03/06/2015 Plan of Care Planned Activity Notes [...] labs today 01/12/2019 Appointment: Alis Muhammad WPtel: [address] [place] [phone] (30 min) Complex 01/12/2019 Patient Education: Patient Medication Summary Completed 01/12/2019 Patient Education: Back Pain Completed 01/12/2019 Appointment: Alis Muhammad WPtel: [address] [place], [place] [phone] (30 min) Complex 12/13/2018 Visit Plan: Edema [...] warmth, discharge. 12/06/2018 Appointment: Alis Muhammad WPtel: [phone] (30 min) Complex 12/06/2018 Patient Education: [...] as indicated 11/15/2018 Appointment: Alis Muhammad WPtel: [facility] [address] (15 min) Moderate 11/15/2018 Patient Education: Patient [...] ER 10/25/2018 Appointment: Alis Muhammad WPtel: [phone] [place] [phone] (15 min) Moderate 10/25/2018 Patient Education: Patient [...] treatment 10/13/2018 Appointment: Alis Muhammad WPtel: [phone] [phone] (15 min) Moderate 10/13/2018 Patient [...] Ua 09/15/2018 Appointment: Alis Muhammad WPtel: [phone] [phone] (30 min) Complex 09/15/2018 Patient [...] not improve 08/15/2018 Appointment: Alis Muhammad WPtel: [phone] [phone] (30 min) Complex 08/15/2018 Patient Education: Patient Medication Summary Completed 08/15/2018 Patient Education: Back Pain Completed 08/15/2018 Visit Plan: HTN-onofre induced cough-s top lisinopril -start losartan -monitor blood pressure and follow up in 2 weeks Low back pain-xray lumbar spine and refer for PT 08/01/2018 Appointment: Alis Muhammad WPtel: [phone] [phone] (15 min) Moderate 08/01/2018 Patient Education: Patient Medication Summary Completed 08/01/2018 Patient Education: Back Pain Completed 08/01/2018 Care Plan: X-RAY EXAM L-S SPINE 08/28 VWS LOINC : 76182-6 Pending 08/01/2018 Visit Plan: Hypertension - well [...] 04/20/2018 Appointment: Scarlett Spring WPtel: [phone] [facility] (15 min) Moderate 04/20/2018 Patient Education: [...] surrogate. 02/09/2018 Appointment: [phone] [facility] - Annual Wellness Visit 02/09/2018 [...] Scarlett Spring WPtel: [facility] [address] (15 min) Moderate 12/16/2017 Patient Education: [...] uncontrolled. 08/23/2017 Appointment: Scarlett Spring WPtel: [phone] (15 min) Moderate 08/23/2017 Patient Education: [...] cardiology 02/03/2017 Appointment: Kassandra Argueta WPtel: [phone] - Annual Wellness Visit 02/03/2017 Patient Education: Patient Medication Summary Completed 02/03/2017 Patient Education: Obesity Completed 02/03/2017 Visit Plan: Atrial fibrillation - a ppt with dr. barney today at 1pm - pt's ekg showed acute atrial fibrillation. Hypertension - well controlled - continue with current medications, continue with no added salt t. Pt has been encouraged to exercise daily. The pt has been advised to call the office if there are any acute concerns about change in blood pressure readings at home. 02/02/2017 Appointment: Scarlett Spring WPtel: [phone] [facility] (15 min) Moderate 02/02/2017 Patient Education: [...] improve. 11/26/2016 Appointment: [facility] Argueta [facility]Ptel[facility] [phone] [facility] (30 min) Complex 11/26/2016 Patient Education: Patient [...] symptoms. 10/07/2016 [facility]ment[phone] (15 min) Moderate 10/07/2016 Patient Education: Patient Medication Summary Completed 10/07/2016 Patient Education: Obesity Completed 10/07/2016 Patient Education: Hypertension Completed 10/07/2016 Care Plan: VASCULAR STUDY Pending 10/04/2016 Care Plan: X-RAY EXAM OF KNEE 3 [facility] : 19528-5 Pending 10/04/2016 Visit Plan: Hypertension - well [...] paroxetine 09/16/2016 Appointment: Scarlett Spring [facility]Ptel[facility] (15 min) Moderate 09/16/2016 Patient Education: Patient [...] improve. 09/07/2016 Appointment: [facility] Argueta [facility]Ptel[phone] [place] (10 min) Simple 09/07/2016 Patient Education: [...] order 04/08/2016 Appointment: Scarlett Spring WPtel: [phone] [facility] (15 min) Moderate 04/08/2016 Patient Education: [...] [facility] [place] (15 min) Moderate 12/04/2015 Patient [...] Scarlett Spring WPtel: [facility] [address] (15 min) Moderate 11/18/2015 Patient Education: Patient Medication Summary Completed 11/18/2015 Patient Education: Obesity Completed 11/18/2015 Patient Education: Hypertension Completed 11/18/2015 Appointment: Scarlett Spring WPtel: [facility] [address] (15 min) Moderate 11/07/2015 Visit Plan: [...] Visit Plan: MSSA of groin and under [id number]-[id number]-[id number] bactrim and call if rash does not completely resolve 09/09/2015 Appointment: (15 min) Moderate 09/09/2015 Patient Education: Patient Medication Summary Completed 09/09/2015 Visit Plan: Rash - dermatophytosis - recommended oral diflucan, topical nystatin cream, rtc in 10 days to assure healing. check of culture - may need to consider treatment with antibiotic depending on the groin culture report. 08/28/2015 Appointment: Scarlett Spring WPtel: [facility] (15 min) Moderate 08/28/2015 Patient Education: [...] not improving. 03/06/2015 Appointment: Scarlett Spring WPtel: [address] [place], [place] [phone] [place] ([place]) New Patient 03/06/2015 Patient Education: [...] cardiac enzymes today- recommend appt with Dr Tnioco for evaluation -she also had episode of [...] will find out if anyone comes to tecate check UA start probiotic daily . Hypertension [...] call if rash does not completely resolve XRAY LUMBAR SPINE CHECK LABS UA TODAY [...] not resolve or if any worse . Hypertension - wel l controlled - [...] through pain symptoms. . Medicare Exam - to day we [...] office if the symptoms are not improving. take two of the metr oprolol succinate [...]
--- OUTSIDE RECORDS SUMMARY | 2020-01-23 14:13 | XMS REPORT | CCD ---
Author Author Jeannine Spring Organization Scarlett Spring MD, [facility] Address [address] [place] [address] Phone Care Team Providers Care Molecular Biology Professor Name Role Phone PP Unavailable CCM Unavailable Summary Purpose Interface Exchange Insurance Providers Payer name Policy type / Coverage type Covered alliance party ID Effective Begin Date Effective End Date WPS Medicare Part B Medicare Part B [id number] Unknown [place] [employer] Medicare Part B [id number] Unkn own Family history Mother Diagnosis Age At Onset Hypertension Unknown Heart Attack Unknown Brother Diagnosis Age At Onset Heart disease Unknown Runs in the family Diagnosis Age At Onset Heart disease Unknown Daughter Diagnosis Age At Onset Heart Attack Unknown Hyperlipidemia Unknown Hypertension Unknown Social History Social History Element Codes Description Effective Dates Number of children Unknown 2 daughter lives in [place], son - does not have contact 09/16/[address]: 6557113 Quit over 10 years ago 1990 - previously smoked 2ppd x 25 years. 11/18/2015 Marital status Unknown W idowed in 201003/06/2015 Employment Unknown Retir ed was a [employer] 03/06/2015 Allergies, Adverse Reactions, Alerts Substance Reaction [...] Fill Instructions Ambien 10 mg tablet RxNorm: 856913 Tablet(s) TAKE ONE TABLET BY MOUTH AT BE DTIME NEEDED 12/21/2018 04/19/2019 Active mupirocin 2 % topica l ointment RxNorm: 766494 1 Application TOP BID 12/06/2018 12/19/2018 Inactive doxycycline hyclate 100 mg tablet RxNorm: 9721531 1 Tablet(s) PO BID 11/21/2018 11/27/2018 Inactive can exchange for capsule if cheaper doxycycline hyclate 100 mg tablet RxNorm: 4515749 1 Tablet(s) PO BID 11/21/2018 11/20/2018 Inactive simethicone 125 mg c hewable tablet RxNorm: 276626 1 Tablet(s) PO qid pr n 10/25/2018 No Stop Date Active promethazine 25 mg t ablet RxNorm: 526772 1 Tablet(s) PO Q6 PRN 10/25/2018 No Stop Date Active paroxetine 40 mg tablet RxNorm: 3617985 1 Tablet(s) PO daily 10/13/2018 04/10/2019 Active valsartan 160 mg tablet RxNorm: 150203 1 Tablet(s) PO daily 10/13/2018 04/10/2019 Active terazosin 5 mg capsule RxNorm: 968051 TAKE ONE CAPSULE BY MOUTH DAILY 09/23/2018 02/19/2019 Ac tive trazodone 50 mg tablet RxNorm: 416917 TAKE ONE TABLET BY MOUTH DAILY 09/23/2018 03/21/2019 Ac tive Ambien 10 mg tablet RxNorm: 791919 TAKE ONE TABLET BY MOUTH AT BEDTIME N EEDED 09/23/2018 11/20/2018 Inactive losartan 50 mg tablet RxNorm: 577525 1 Tablet(s) PO daily 09/15/2018 10/12/2018 Inactive omeprazole 20 mg cap marina,delayed release RxNorm: 225822 TAKE ONE CAPSULE BY M OUTH EVERY NIGHT AT BEDTIME 09/12/2018 03/10/2019 Active Keflex 500 mg capsule RxNorm: 963858 1 Capsule(s) PO TID 08/18/2018 08/17/2018 Inactive Keflex 500 mg capsule RxNorm: 640184 1 Capsule(s) PO TID 08/18/2018 08/24/2018 Inactive take probiotic while on abx paroxetine 20 mg tablet RxNorm: 4106450 TAKE ONE TABLET BY MOUTH DAILY 08/12/2018 10/12/2018 In active losartan 25 mg tablet RxNorm: 136713 1 Tablet(s) PO daily 08/01/2018 09/14/2018 Inactive losartan 25 mg tablet RxNorm: 385164 1 Tablet(s) PO daily 08/01/2018 10/12/2018 Inactive trazodone 50 mg tablet RxNorm: 638881 TAKE ONE TABLET BY MOUTH DAILY 07/25/2018 09/22/2018 In active Ambien 10 mg tablet RxNorm: 419206 Tablet(s) TAKE ONE TABLET BY MOUTH AT BE DTIME 06/24/2018 09/23/2018 Inactive trazodone 50 mg tablet RxNorm: 712218 TAKE ONE TABLET BY MOUTH DAILY 04/25/2018 07/23/2018 In active Ambien 10 mg tablet RxNorm: 085802 Tablet(s) TAKE ONE TABLET BY MOUTH AT BE DTIME 03/23/2018 06/19/2018 Inactive terazosin 5 mg capsule RxNorm: 099671 TAKE ONE CAPSULE BY MOUTH DAILY 03/14/2018 09/09/2018 In active Ambien 10 mg tablet RxNorm: 910507 Tablet(s) TAKE ONE TABLET BY MOUTH AT BE DTIME 01/18/2018 09/14/2018 Inactive trazodone 50 mg tablet RxNorm: 284455 TAKE ONE TABLET BY MOUTH ONCE DAILY 01/10/2018 03/22/2018 In active trazodone 50 mg tablet RxNorm: 792740 Tablet(s) TAKE ONE TABLET BY MOUTH ONCE DAILY 01/10/2018 04/24/2018 Inactive Ambien 10 mg tablet RxNorm: 305123 Tablet(s) TAKE ONE TABLET BY MOUTH AT BE DTIME 10/22/2017 01/17/2018 Inactive trazodone 50 mg tablet RxNorm: 281557 TAKE ONE TABLET BY MOUTH ONCE DAILY 10/18/2017 01/09/2018 In active omeprazole 20 mg cap marina,delayed release RxNorm: 390690 TAKE ONE CAPSULE BY M OUTH ONCE DAILY AT BEDTIME 08/27/2017 09/11/2018 Inactive trazodone 50 mg tablet RxNorm: 322576 TAKE ONE TABLET BY MOUTH ONCE DAILY 08/18/2017 10/17/2017 In active Ambien 10 mg tablet RxNorm: 012015 Tablet(s) TAKE ONE TABLET BY MOUTH AT BE DTICO 08/18/2017 03/22/2018 Inactive paroxetine 20 mg tablet RxNorm: 2793183 TAKE ONE TABLET BY MOUTH ONCE DAILY 07/27/2017 08/11/2018 In active Ambien 10 mg tablet RxNorm: 736146 Tablet(s) TAKE ONE TABLET BY MOUTH AT BE DTICO 06/23/2017 03/22/2018 Inactive omeprazole 20 mg cap marina,delayed release RxNorm: 863097 TAKE ONE CAPSULE BY M OUTH ONCE DAILY AT BEDTIME 04/23/2017 08/20/2017 Inactive trazodone 50 mg tablet RxNorm: 073552 TAKE ONE TABLET BY MOUTH ONCE DAILY 04/13/2017 08/10/2017 In active terazosin 5 mg capsule RxNorm: 742660 Capsule(s) TAKE ONE CAPSULE BY MOUTH TATA 04/08/2017 03/03/2018 In active Ambien 10 mg tablet RxNorm: 496762 Tablet(s) TAKE ONE TABLET BY MOUTH AT BE DTICO 02/17/2017 03/22/2018 Inactive Tylenol-Codeine #3 3 00 mg-30 mg tablet RxNorm: 378326 1 Tablet(s) PO QID as needed 02/02/2017 11/14/2018 In active metoprolol succinate ER 50 mg tablet,extended release 24 hr RxNorm: 711410 TAKE ONE TABLET BY MOUTH ONCE DAILY 12/23/2016 02/02/2017 Inactive Zithromax Z-Ted 250 mg tablet RxNorm: 340495 1 Tablet(s) PO UD 11/26/2016 02/16/2017 Inactive trazodone 50 mg tablet RxNorm: 241551 TAKE ONE TABLET BY MOUTH ONCE DAILY 11/12/2016 03/11/2017 In active Ambien 10 mg tablet RxNorm: 765163 Tablet(s) TAKE ONE TABLET BY MOUTH AT BE DTICO 10/22/2016 02/15/2017 Inactive paroxetine 20 mg tablet RxNorm: 0292028 1 Tablet(s) PO daily TAKE ONE TABLET BY MOUTH DAILY 09/16/2016 06/12/2017 Inactive meloxicam 7.5 mg tablet RxNorm: 522755 1 Tablet(s) PO daily 09/16/2016 11/14/2016 Inactive Protonix 40 mg table t,delayed release RxNorm: 380225 1 Tablet(s) PO daily 09/16/2016 08/22/2017 In active sucralfate 1 gram ta blet RxNorm: 373257 1 Tablet(s) PO TID 09/16/2016 08/22/2017 Inactive Ambien 10 mg tablet RxNorm: 232299 Tablet(s) TAKE ONE TABLET BY MOUTH AT DTICO 08/24/2016 03/22/2018 Inactive trazodone 50 mg tablet RxNorm: 535972 Tablet(s) TAKE ONE TABLET BY MOUTH DAILY 07/29/2016 11/11/2016 In active Ambien 10 mg tablet RxNorm: 633309 TAKE ONE TABLET BY MOUTH AT BEDTIME 06/23/2016 03/22/2018 In active Ambien 10 mg tablet RxNorm: 320473 Tablet(s) TAKE ONE TABLET BY MOUTH EVERY NIGHT AT BEDTIME 06/22/2016 06/23/2016 Inactive Lasix 40 mg tablet RxNorm: 090677 1 Tablet(s) PO daily as needed for swell ing 04/03/2016 09/15/2016 In active potassium chloride E R 20 mEq tablet,extended release RxNorm: 255661 1 Tablet(s) PO daily for swelling take with lasix as needed 04/03/2016 09/15/2016 Inactive Ambien 10 mg tablet RxNorm: 303698 Tablet(s) TAKE ONE TABLET BY MOUTH EVERY NIGHT AT BEDTIME 04/03/2016 03/22/2018 Inactive omeprazole 20 mg cap marina,delayed release RxNorm: 146261 TAKE ONE CAPSULE BY M OUTH EVERY NIGHT AT BEDTIME 03/31/2016 09/15/2016 Inactive paroxetine 20 mg tablet RxNorm: 4970703 TAKE ONE TABLET BY MOUTH DAILY 03/31/2016 09/15/2016 In active trazodone 50 mg tablet RxNorm: 729457 TAKE ONE TABLET BY MOUTH DAILY 03/20/2016 07/28/2016 In active terazosin 5 mg capsule RxNorm: 092454 TAKE ONE CAPSULE BY MOUTH DAILY 03/06/2016 10/06/2016 In active Ambien 10 mg tablet RxNorm: 057926 Tablet(s) TAKE ONE TABLET BY MOUTH EVERY NIGHT AT BEDTIME 01/17/2016 04/02/2016 Inactive loratadine 10 mg tablet RxNorm: 973057 1 Tablet(s) PO daily 01/15/2016 09/15/2016 Inactive mupirocin 2 % topica l ointment RxNorm: 399161 1 Application TOP TID 11/18/2015 12/01/2015 Inactive metoprolol succinate ER 50 mg tablet,extended release 24 hr RxNorm: 523421 1 Tablet(s) PO daily 11/18/2015 11/11/2016 Inactive loratadine 10 mg tablet RxNorm: 449325 1 Tablet(s) PO daily 11/18/2015 01/14/2016 Inactive Lasix 40 mg tablet RxNorm: 878566 1 Tablet(s) PO daily as needed for swell ing 10/30/2015 11/28/2015 In active potassium chloride E R 20 mEq tablet,extended release RxNorm: 661977 1 Tablet(s) PO daily for swelling take with lasix as needed 10/30/2015 11/28/2015 Inactive Tylenol-Codeine #3 3 00 mg-30 mg tablet RxNorm: 180226 1 Tablet(s) PO QID as needed 10/25/2015 02/01/2017 In active Ambien 10 mg tablet RxNorm: 700136 Tablet(s) TAKE ONE TABLET BY MOUTH EVERY NIGHT AT BEDTIME 10/18/2015 03/22/2018 Inactive Diflucan 150 mg tablet RxNorm: 736009 1 Tablet(s) PO daily 10/01/2015 12/03/2015 Inactive Lasix 20 mg tablet RxNorm: 942278 1 Tablet(s) PO PRN fror swelling 09/27/2015 10/29/2015 In active potassium chloride E R 10 mEq capsule,extended release RxNorm: 865620 1 Capsule(s) PO PRN for swelling take with lasix 09/27/2015 10/29/2015 Inactive Bactrim DS 800 mg-16 0 mg tablet RxNorm: 828164 1 Tablet(s) PO BID 09/02/2015 09/11/2015 Inactive Bactrim DS 800 mg-16 0 mg tablet RxNorm: 125161 1 Tablet(s) PO BID 09/02/2015 09/01/2015 Inactive nystatin 100,000 uni t/gram topical cream RxNorm: 513516 1 Gram(s) TOP TID 08/28/2015 09/26/2015 In active Diflucan 150 mg tablet RxNorm: 329072 1 Tablet(s) PO daily 08/28/2015 09/06/2015 Inactive betamethasone diprop ionate 0.05 % topical ointment RxNorm: 450934 1 Application TOP TID to affected area 08/02/2015 02/01/2017 Inactive nystatin 100,000 uni t/gram topical powder RxNorm: 442440 1 Gram(s) TOP QID 07/09/2015 08/01/2015 In active Ambien 10 mg tablet RxNorm: 247120 1 Tablet(s) PO QHS 06/19/2015 06/18/2015 Inactive Ambien 10 mg tablet RxNorm: 544410 TAKE ONE TABLET BY MOUTH EVERY NIGHT AT BEDTIME 06/19/2015 09/16/2015 Inactive Vitamin D2 50,000 un it capsule RxNorm: 263622 1 Capsule(s) PO QW 03/07/2015 03/06/2015 Inactive Vitamin D2 50,000 un it capsule RxNorm: 855394 1 Capsule(s) PO QW 03/07/2015 05/05/2015 Inactive terazosin 5 mg capsule RxNorm: 956010 1 Capsule(s) PO daily 03/06/2015 02/28/2016 Inactive [SAVINGS FOR NON-COVERED DRUGS -- BIN:00 3585, PCN: [id number], Group: XXXXX, ID# [id number], Questions: . THIS IS NOT INSURANCE.] trazodone 50 mg tablet RxNorm: 117855 1 Tablet(s) PO daily 03/06/2015 02/28/2016 Inactive paroxetine 20 mg tablet RxNorm: 8448066 1 Tablet(s) PO daily 03/06/2015 02/28/2016 Inactive Tylenol-Codeine #3 3 00 mg-30 mg tablet RxNorm: 429536 1 Tablet(s) PO QID as needed 03/06/2015 07/02/2015 In active amlodipine 10 mg tablet RxNorm: 117971 1 Tablet(s) PO daily 03/06/2015 11/17/2015 Inactive metoprolol succinate ER 25 mg tablet,extended release 24 hr RxNorm: 028140 1 Tablet(s) PO daily 03/06/2015 11/17/2015 Inactive omeprazole 20 mg cap marina,delayed release RxNorm: 556867 1 Capsule(s) PO QHS 03/06/2015 02/28/2016 In active omeprazole 20 mg cap marina,delayed release RxNorm: 729078 1 Capsule(s) PO QHS 01/31/2015 01/30/2015 In active omeprazole 20 mg cap marina,delayed release RxNorm: 178084 1 Capsule(s) PO QHS 01/31/2015 01/30/2015 In active omeprazole 20 mg cap marina,delayed release RxNorm: 083958 1 Capsule(s) PO QHS 01/31/2015 03/05/2015 In active Ambien 10 mg tablet RxNorm: 061256 1 Tablet(s) PO QHS 12/25/2014 04/21/2015 Inactive paroxetine 20 mg tablet RxNorm: 438358 1 Tablet(s) PO daily 12/25/2014 12/24/2014 Inactive Ambien 10 mg tablet RxNorm: 258769 1 Tablet(s) PO QHS 12/25/2014 12/24/2014 Inactive paroxetine 20 mg tablet RxNorm: 721211 1 Tablet(s) PO daily 12/25/2014 03/05/2015 Inactive terazosin 5 mg capsule RxNorm: 602094 1 Capsule(s) PO daily 11/23/2014 03/05/2015 Inactive [SAVINGS FOR NON-COVERED DRUGS -- BIN:00 2762, PCN: ASPROD1, Group: XXXXX, ID# [id number], Questions: . THIS IS NOT INSURANCE.] terazosin 5 mg capsule RxNorm: 261109 1 Capsule(s) PO daily 11/23/2014 11/22/2014 Inactive Lasix 20 mg tablet RxNorm: 561908 1 Tablet(s) PO daily No Start Date Active K-Dur 10 mEq tablet, extended release RxNorm: 692565 1 Tablet(s) PO daily No Start Date Active hydrochlorothiazide 25 mg tablet RxNorm: 839742 1 Tablet(s) PO daily No Start Date Active Vitamin D3 2,000 uni t tablet RxNorm: 459373 1 Tablet(s) PO daily No Start Date Active amiodarone 200 mg ta blet RxNorm: 827156 1 Tablet(s) PO BID No Start Date Active Zetia 10 mg tablet RxNorm: 833101 1 Tablet(s) PO daily No Start Date Active Lipitor 80 mg tablet RxNorm: 405207 1/2 Tablet(s) PO daily No Start Date Active Coumadin 4 mg tablet RxNorm: 024315 1 Tablet(s) PO daily No Start Date Active metoprolol succinate ER 25 mg tablet,extended release 24 hr RxNorm: 096106 1 Tablet(s) PO daily No Start Date 03/05/2015 Inactive Entresto 49 mg-51 mg tablet RxNorm: 5378078 1 Tablet(s) PO BID No Start Date 04/19/2018 Inactive sotalol 80 mg tablet RxNorm: 8234340 1 Tablet(s) PO BID No Start Date 04/19/2018 Inactive betamethasone diprop ionate 0.05 % topical ointment RxNorm: 846315 1 Application TOP TID to affected area No Start Date 08/01/2015 Inactive trazodone 50 mg tablet RxNorm: 112050 1 Tablet(s) PO daily No Start Date 03/05/2015 Inactive potassium chloride E R 10 mEq capsule,extended release RxNorm: 044093 1 Capsule(s) PO PRN for swelling take with lasix No Start Date 09/26/2015 Inactive Eliquis 5 mg tablet RxNorm: 3406683 1 Tablet(s) PO BID No Start Date 09/14/2018 Inactive amlodipine 10 mg tablet RxNorm: 286413 1 Tablet(s) PO daily No Start Date 03/05/2015 Inactive isosorbide mononitra te ER 30 mg tablet,extended release 24 hr RxNorm: 957847 1 Tablet(s) PO daily No Start Date 08/22/2017 Inactive aspirin 81 mg tablet ,delayed release RxNorm: 538230 1 Tablet(s) PO daily No Start Date 02/02/2017 Inactive Lasix 20 mg tablet RxNorm: 686365 1 Tablet(s) PO PRN fror swelling No Start Date 09/26/2015 Inactive lisinopril 5 mg tablet RxNorm: 571738 1 Tablet(s) PO daily No Start Date 07/31/2018 Inactive Crestor 40 mg tablet RxNorm: 777061 1 Tablet(s) PO daily No Start Date 09/15/2016 Inactive metoprolol succinate ER 100 mg tablet,extended release 24 hr RxNorm: 774799 1 Tablet(s) PO daily No Start Date [...] Code Item Item Code Result Date Pt [id number] PT 24.7 seconds 01/12/2019 Pt Nom5027 INR 2.3 01/12/2019 Pt Dwi0647 Low Intensity - 1.5-2.0 01/12/2019 Pt Sur2189 Mod intensity - 2.0-3.0 01/12/2019 Pt Iul1823 Hi intensity - 3.0-4.0 01/12/2019 Cbc With [...] 27.0 pg 01/12/2019 Cbc With Differential Ord2 Tyrrell% 11.1 % 01/12/2019 Cbc With Differential Ord2 [...] 0.92 K/ul 01/12/2019 Cbc With Differential Ord2 Tyrrell ABS# 0.4 K/ul 01/12/2019 Cbc With Differential Ord2 Eos ABS# 0.1 K/ul 01/12/2019 Cbc With Differential Ord2 Baso ABS# 0.0 K/ul 01/12/2019 Comp Metabolic Jin998 NA 141 mEq/L 01/12/2019 Comp Metabolic Xhy035 K 3.8 mEq/L 01/12/2019 Comp Metabolic Wkd026 CL 105 mEq/L 01/12/2019 Comp Metabolic Cvu781 CO2 26.0 mEq/L 01/12/2019 Comp Metabolic Tur783 AN ION GAP 14 01/12/2019 Comp Metabolic Wlk511 GL UCOSE 112 mg/dL 01/12/2019 Comp Metabolic Woa688 Cr eat 1.0 mg/dL 01/12/2019 Comp Metabolic Pgf001 eG FR 60 ml/min/1.73m2 01/12 Comp Metabolic Dty560 BUN 14 mg/dL 01/12/2019 Comp Metabolic Did470 B/ C Ratio 14.4 Ratio 01/12/2019 Comp Metabolic Sut789 CA LCIUM 8.8 mg/dL 01/12/2019 Comp Metabolic Nlm351 AL K PHOS 60 U/L 01/12/2019 Comp Metabolic Wer161 T(SGOT) 22 U/L 01/12/2019 Comp Metabolic Ctq487 AL T(SGPT) 22 U/L 01/12/2019 Comp Metabolic Ecv990 BI LI T 0.5 mg/dL 01/12/2019 Comp Metabolic Gya282 AL BUMIN 3.9 g/dL 01/12/2019 Comp Metabolic Ktl792 TP RO 6.5 g/dL 01/12/2019 Comp Metabolic Hha858 GL OB 2.6 g/dL 01/12/2019 Comp Metabolic Lcb387 A/ G Ratio 1.5 Ratio 01/12/2019 Comp Metabolic Dnp828 Os mo 282 mOsmo 01/12/2019 Vitamin D 25 Oh Coo7168 VITAMIN D, 25 HYDROXY 30.62 ng/mL 01/12/2019 Urine Culture Ucult Comp lete >100,000 col/ml aerobic grow th sent to ref lab 11/16/2018 Culture Urine [id number] URI NE CULTURE SEE NOTES 08/22/2018 Culture Urine [id number] Con tinued Results 08/22/2018 Urine Culture Ucult Comp lete >100,000 col/ml aerobic grow th sent to ref lab 08/19/2018 Comp Metabolic Rky865 NA 140 mEq/L 08/01/2018 Comp Metabolic Mxx628 K 4.2 mEq/L 08/01/2018 Comp Metabolic Msl864 CL 102 mEq/L 08/01/2018 Comp Metabolic Nas622 CO2 27.0 mEq/L 08/01/2018 Comp Metabolic Sdp139 AN ION GAP 15 08/01/2018 Comp Metabolic Btd312 GL UCOSE 107 mg/dL 08/01/2018 Comp Metabolic Rxi069 Cr eat 1.0 mg/dL 08/01/2018 Comp Metabolic Yyk767 eG FR 58 ml/min/1.73m2 08/01 Comp Metabolic Imb520 BUN 10 mg/dL 08/01/2018 Comp Metabolic Ivt946 B/ C Ratio 10.0 Ratio 08/01/2018 Comp Metabolic Ics069 CA LCIUM 8.9 mg/dL 08/01/2018 Comp Metabolic Ghk521 AL K PHOS 68 U/L 08/01/2018 Comp Metabolic Blj495 T(SGOT) 18 U/L 08/01/2018 Comp Metabolic Svn535 AL T(SGPT) 14 U/L 08/01/2018 Comp Metabolic Odf875 BI LI T 0.5 mg/dL 08/01/2018 Comp Metabolic Qap574 AL BUMIN 4.0 g/dL 08/01/2018 Comp Metabolic Afb077 TP RO 6.3 g/dL 08/01/2018 Comp Metabolic Yrp129 GL OB 2.3 g/dL 08/01/2018 Comp Metabolic Lag282 A/ G Ratio 1.7 Ratio 08/01/2018 Comp Metabolic Dpc599 Os mo 279 mOsmo 08/01/2018 Tsh Ord6 [...] 27.3 pg 08/01/2018 Cbc With Differential Ord2 Tyrrell% 9.8 % 08/01/2018 Cbc With Differential Ord2 [...] 0.79 K/ul 08/01/2018 Cbc With Differential Ord2 Tyrrell ABS# 0.4 K/ul 08/01/2018 Cbc With Differential Ord2 Eos ABS# 0.1 K/ul 08/01/2018 Cbc With Differential Ord2 Baso ABS# 0.0 K/ul 08/01/2018 Lipid Ord30 CHOL 234 mg/dL 08/01/2018 Lipid Ord30 HDL 69.0 mg/dl 08/01/2018 Lipid Ord30 TRIG 57 mg/dL 08/01/2018 Lipid Ord30 LDL 154 mg/dL 08/01/2018 Lipid Ord30 C/HDL 3.4 Ratio 08/01/2018 Comp Metabolic Cch081 NA 137 mEq/L 09/30/2015 Comp Metabolic Yfk158 K 4.5 mEq/L 09/30/2015 Comp Metabolic Uvl300 CL 102 mEq/L 09/30/2015 Comp Metabolic Yos922 CO2 26.0 mEq/L 09/30/2015 Comp Metabolic Xhg828 AN ION GAP 14 09/30/2015 Comp Metabolic Fqx553 GL UCOSE 89 mg/dL 09/30/2015 Comp Metabolic Izd770 Cr eat 0.8 mg/dL 09/30/2015 Comp Metabolic Gog833 eG FR 79 ml/min/1.73m2 09/29 Comp Metabolic Kvd526 BUN 14 mg/dL 09/30/2015 Comp Metabolic Ywn363 B/ C Ratio 18.2 Ratio 09/30/2015 Comp Metabolic Uub038 CA LCIUM 8.9 mg/dL 09/30/2015 Comp Metabolic Eop802 AL K PHOS 65 U/L 09/30/2015 Comp Metabolic Kme679 T(SGOT) 26 U/L 09/30/2015 Comp Metabolic Jvy710 AL T(SGPT) 18 U/L 09/30/2015 Comp Metabolic Cxe631 BI LI T 0.6 mg/dL 09/30/2015 Comp Metabolic Yil306 AL BUMIN 3.8 g/dL 09/30/2015 Comp Metabolic Vtl905 TP RO 6.6 g/dL 09/30/2015 Comp Metabolic Goy805 GL OB 2.8 g/dL 09/30/2015 Comp Metabolic Cjj461 A/ G Ratio 1.4 Ratio 09/30/2015 Comp Metabolic Pga576 Os mo 274 mOsmo 09/30/2015 Cbc With [...] 27.7 pg 09/30/2015 Cbc With Differential Ord2 Tyrrell% 10.7 % 09/30/2015 Cbc With Differential Ord2 [...] 1.10 K/ul 09/30/2015 Cbc With Differential Ord2 Tyrrell ABS# 0.6 K/ul 09/30/2015 Cbc With Differential Ord2 Eos ABS# 0.2 K/ul 09/30/2015 Cbc With Differential Ord2 Baso ABS# 0.0 K/ul 09/30/2015 Cbc With Differential Ord2 New Analyzer Notice Please note new ref ranges s tarting 08-07-2015 due to implemntation of new five part differential hematolgy analyzer. 09/30/2015 Tsh Ord6 hTSH II 1.05 uIU/mL 03/06/2015 Comp Metabolic Osv812 NA 137 mEq/L 03/06/2015 Comp Metabolic Kfr925 K 4.3 mEq/L 03/06/2015 Comp Metabolic Wsf939 CL 104 mEq/L 03/06/2015 Comp Metabolic Ulq306 CO2 28.0 mEq/L 03/06/2015 Comp Metabolic Huj842 AN ION GAP 9 03/06/2015 Comp Metabolic Vbl994 GL UCOSE 93 mg/dL 03/06/2015 Comp Metabolic Gtg702 Cr eat 0.8 mg/dL 03/06/2015 Comp Metabolic Gga358 eG FR 81 ml/min/1.73m2 03/06 Comp Metabolic Dbf328 BUN 12 mg/dL 03/06/2015 Comp Metabolic Raz614 B/ C Ratio 16.0 Ratio 03/06/2015 Comp Metabolic Tlf261 CA LCIUM 8.9 mg/dL 03/06/2015 Comp Metabolic Vfm268 AL K PHOS 56 U/L 03/06/2015 Comp Metabolic Efy780 T(SGOT) 22 U/L 03/06/2015 Comp Metabolic Jyf117 AL T(SGPT) 15 U/L 03/06/2015 Comp Metabolic Qco616 BI LI T 0.4 mg/dL 03/06/2015 Comp Metabolic Xnb504 AL BUMIN 4.0 g/dL 03/06/2015 Comp Metabolic Zer221 TP RO 6.5 g/dL 03/06/2015 Comp Metabolic Mvr944 GL OB 2.5 g/dL 03/06/2015 Comp Metabolic Fdw822 A/ G Ratio 1.6 Ratio 03/06/2015 Comp Metabolic Rsw132 Os mo 273 mOsmo 03/06/2015 Vitamin D 25 Oh Map3312 VITAMIN D, 25 HYDROXY 28.14 ng/mL 03/06/2015 [...] Date URINALYSIS NONAUTO W /O SCOPE CPT-4: 04797 01/12/2019 URINALYSIS NONAUTO W /O SCOPE CPT-4: 08005 12/06/2018 URINALYSIS NONAUTO W /O SCOPE CPT-4: 76488 11/15/2018 URINALYSIS NONAUTO W /O SCOPE CPT-4: 36888 08/18/2018 ADMIN INFLUENZA VIRU S VAC CPT-4: G0008 04/20/2018 FLU VACC PRSV FREE I NC ANTIG Formatting Model/CDA Sections, Assigned to/Amparo Mims CPT-4: 85251Fulrhrd 04/20/2018 PPPS, SUBSEQ VISIT CPT- 4: G0439 02/09/2018 PPPS, SUBSEQ VISIT CPT- 4: G0439 02/03/2017 ADMIN INFLUENZA VIRU S VAC CPT-4: G0008 04/08/2016 ADMIN PNEUMOCOCCAL V ACCINE SNOMED CT: 13618333 CPT-4: G0009 04/08/2016 PNEUMOCOCCAL VACC [address]: 35446070 CPT-4: 32114 04/08/2016 FLU VACC PRSV FREE I NC ANTIG CPT-4: 73389 04/08/2016 Vital Signs Date Vital 01/12/2019 Blood Pressure 1: 128/68 Code: 8480-6 BMI: 41.2 Code: 68448-0 Heart Rate 1: 82 bpm Height: 5'7" SpO2: 92% Weight: 263 lbs 12/06/2018 Blood Pressure 1: 118/70 Code: 8480-6 BMI: 41.5 Code: 26990-3 Heart Rate 1: 97 bpm Height: 5'7" SpO2: 96% Weight: 265 lbs 11/15/2018 Blood Pressure 1: 144/76 Code: 8480-6 BMI: 42.3 Code: 19187-7 Heart Rate 1: 82 bpm Height: 5'7" SpO2: 96% Weight: 270 lbs 10/25/2018 Blood Pressure 1: 128/80 Code: 8480-6 BMI: 42.0 Code: 39934-1 Heart Rate 1: 93 bpm Height: 5'7" SpO2: 95% Weight: 268 lbs 10/13/2018 Blood Pressure 1: 162/76 Code: 8480-6 BMI: 42.0 Code: 75433-2 Heart Rate 1: 71 bpm Height: 5'7" SpO2: 96% Weight: 268 lbs 09/15/2018 Blood Pressure 1: 154/86 Code: 8480-6 BMI: 42.9 Code: 29072-1 Heart Rate 1: 88 bpm Height: 5'7" SpO2: 94% Weight: 274 lbs 08/15/2018 Blood Pressure 1: 140/90 Code: 8480-6 BMI: 40.7 Code: 11396-5 Heart Rate 1: 70 bpm Height: 5'7" SpO2: 93% Weight: 260 lbs 08/01/2018 Blood Pressure 1: 130/70 Code: 8480-6 BMI: 40.7 Code: 20606-7 Heart Rate 1: 80 bpm Height: 5'7" SpO2: 93% Weight: 260 lbs 04/20/2018 Blood Pressure 1: 128/68 Code: 8480-6 BMI: 41.7 Code: 25510-2 Heart Rate 1: 85 bpm Height: 5'7" SpO2: 94% Weight: 266 lbs 02/09/2018 Blood Pressure 1: 118/70 Code: 8480-6 BMI: 42.1 Code: 95759-7 Heart Rate 1: 58 bpm Height: 5'7" SpO2: 94% Weight: 269 lbs 12/16/2017 Blood Pressure 1: 132/86 Code: 8480-6 BMI: 42.7 Code: 24961-4 Heart Rate 1: 63 bpm Height: 5'7" SpO2: 94% Weight: 272 lbs 14 o z 08/23/2017 Blood Pressure 1: 150/82 Code: 8480-6 BMI: 42.0 Code: 63812-2 Heart Rate 1: 66 bpm Height: 5'7" SpO2: 96% Weight: 268 lbs 02/03/2017 Blood Pressure 1: 138/72 Code: 8480-6 BMI: 41.2 Code: 76817-7 Heart Rate 1: 96 bpm Height: 5'7" SpO2: 97% Weight: 263 lbs 02/02/2017 Blood Pressure 1: 140/90 Code: 8480-6 BMI: 41.2 Code: 29101-5 Heart Rate 1: 103 bpm Height: 5'7" SpO2: 94% Weight: 263 lbs 11/26/2016 Blood Pressure 1: 152/88 Code: 8480-6 BMI: 41.0 Code: 24567-8 Heart Rate 1: 71 bpm Height: 5'7" SpO2: 94% Temperature: 37.7 (C ) / 99.8 (F) Weight: 262 lbs 10/07/2016 Blood Pressure 1: 148/82 Code: 8480-6 BMI: 41.7 Code: 89070-3 Heart Rate 1: 58 bpm Height: 5'7" SpO2: 96% Weight: 266 lbs 09/16/2016 Blood Pressure 1: 122/70 Code: 8480-6 BMI: 42.0 Code: 50025-3 Heart Rate 1: 65 bpm Height: 5'7" SpO2: 96% Weight: 268 lbs 09/07/2016 Blood Pressure 1: 154/60 Code: 8480-6 BMI: 42.3 Code: 47790-1 Heart Rate 1: 101 bpm Height: 5'7" SpO2: 97% Weight: 270 lbs 04/08/2016 Blood Pressure 1: 128/70 Code: 8480-6 BMI: 41.4 Code: 44625-1 Heart Rate 1: 62 bpm Height: 5'7" SpO2: 95% Weight: 264 lbs 8 oz 03/05/2016 Blood Pressure 1: 144/78 Code: 8480-6 Blood Pressure 1: 139/72 Code: 8480-6 BMI: 41.9 Code: 95349-1 Heart Rate 1: 71 bpm Height: 5'7" SpO2: 93% Weight: 267 lbs 8 oz 12/04/2015 Blood Pressure 1: 132/70 Code: 8480-6 BMI: 41.3 Code: 05901-8 Heart Rate 1: 56 bpm Height: 5'7" SpO2: 96% Weight: 264 lbs 11/18/2015 Blood Pressure 1: 138/72 Code: 8480-6 BMI: 41.0 Code: 43658-1 Heart Rate 1: 85 bpm Height: 5'7" SpO2: 93% Weight: 262 lbs 09/30/2015 Blood Pressure 1: 128/76 Code: 8480-6 BMI: 41.2 Code: 76849-7 Heart Rate 1: 70 bpm Height: 5'7" SpO2: 93% Weight: 263 lbs 09/09/2015 Blood Pressure 1: 138/80 Code: 8480-6 BMI: 40.3 Code: 24478-9 Heart Rate 1: 84 bpm Height: 5'7" SpO2: 95% Weight: 257 lbs 08/28/2015 Blood Pressure 1: 122/72 Code: 8480-6 BMI: 39.6 Code: 07467-6 Heart Rate 1: 75 bpm Height: 5'7" SpO2: 96% Weight: 253 lbs 07/09/2015 Blood Pressure 1: 140/78 Code: 8480-6 Blood Pressure 1: 135/78 Code: 8480-6 BMI: 39.5 Code: 77531-5 Heart Rate 1: 62 bpm Height: 5'7" SpO2: 95% Weight: 252 lbs 03/06/2015 Blood Pressure 1: 142/88 Code: 8480-6 BMI: 39.3 Code: 65275-9 Heart Rate 1: 65 bpm Height: 5'7" [...] rs ago 10/25/2018 None Location in the [facility] area 10/25/2018 None Quality burning 10/25/2018 [...] 09/16/2016 None low back pain Quality ac [place] 09/16/2016 None low back pain Onset and [...] edema 04/08/2016 None rash Location-Trunk in [facility] area 04/08/2016 None rash Quality improving [...] Encounters Encounter Performer Loca tion Codes Date () 15138 EST. P ATIENT, LEVEL IV Diagnosis: Essential (primary) hypertension[ICD10: I10] Diagnosis: Chronic atrial fibrillation[ICD10: I48.2] Diagnosis: Localized edema[ICD10: R60.0] Diagnosis: Dysuria[ICD10: R30.0] Diagnosis: Low back pain[ICD10: M54.5] Diagnosis: Vitamin D deficiency, unspecified[ICD10: E55.9] Alis Spring MD, [facility] CPT-4: 78817 01/12/2019 ([id number]) 14800 EST. P ATIENT, LEVEL IV Diagnosis: Localized edema[ICD10: R60.0] Diagnosis: Dysuria[ICD10: R30.0] Diagnosis: Cellulitis of abdominal wall[ICD10: L03.311] Alis Spring MD, [facility] CPT-4: 07481 12/06/2018 ([id number]) 43808 EST. P ATIENT, LEVEL III Diagnosis: Dysuria[ICD10: R30.0] Diagnosis: Essential (primary) hypertension[ICD10: I10] Diagnosis: Major depressive disorder, recurrent, moderate[ICD10: F33.1] Alis Spring MD, [facility] CPT-4: 82400 11/15/2018 ([id number]) 10780 EST. P ATIENT, LEVEL IV Diagnosis: Eructation[ICD10: R14.2] Diagnosis: Nausea[ICD10: R11.0] Diagnosis: Chest pain, unspecified[ICD10: R07.9] Diagnosis: Diarrhea, unspecified[ICD10: R19.7] Ails Spring MD, [facility] CPT-4: 81884 10/25/2018 ([id number]) 78854 EST. P ATIENT, LEVEL IV Diagnosis: Essential (primary) hypertension[ICD10: I10] Diagnosis: Low back pain[ICD10: M54.5] Diagnosis: Major depressive disorder, recurrent, moderate[ICD10: F33.1] Alis Spring MD, [facility] CPT-4: 92252 10/13/2018 ([id number]) 26480 EST. P ATIENT, LEVEL IV Diagnosis: Essential (primary) hypertension[ICD10: I10] Diagnosis: Dysuria[ICD10: R30.0] Diagnosis: Low back pain[ICD10: M54.5] Alis Spring MD, [facility] CPT- 4: 41147 09/15/2018 ([id number]) 53312 EST. P ATIENT, LEVEL III Diagnosis: Essential (primary) hypertension[ICD10: I10] Diagnosis: Low back pain[ICD10: M54.5] Alis Spring MD, [facility] CPT- 4: 51715 08/15/2018 ([id number]) 68445 EST. P ATIENT, LEVEL III Diagnosis: Essential (primary) hypertension[ICD10: I10] Diagnosis: Cough[ICD10: R05] Diagnosis: Low back pain[ICD10: M54.5] Alis Spring MD, [facility] CPT- 4: 30277 08/01/2018 ([id number]) 50997 EST. P ATIENT, LEVEL IV Diagnosis: Encounter for immunization[ICD10: Z23] Diagnosis: Essential (primary) hypertension[ICD10: I10] Diagnosis: Chronic atrial fibrillation[ICD10: I48.2] Diagnosis: Major depressive disorder, recurrent, mild[ICD10: F33.0] Scarlett Spring MD, C CPT-4: 67649 04/20/2018 ([id number]) 11530 EST. P ATIENT, LEVEL IV Diagnosis: Essential (primary) hypertension[ICD10: I10] Diagnosis: Obstructive sleep apnea (adult) (pediatric)[ICD10: G47.33] Diagnosis: Chronic atrial fibrillation[ICD10: I48.2] Scarlett Spring MD, C CPT-4: 17988 12/16/2017 ([id number]) 60654 EST. P ATIENT, LEVEL IV Diagnosis: Essential (primary) hypertension[ICD10: I10] Diagnosis: Chronic atrial fibrillation[ICD10: I48.2] Scarlett Spring MD, [facility] CPT-4: 54003 08/23/2017 ([id number]) 23028 EST. [facility], LEVEL IV Diagnosis: Paroxysmal atrial fibrillation[ICD10: I48.0] Diagnosis: Essential (primary) hypertension[ICD10: I10] Scarlett Spring MD, [facility] CPT-4: 91832 02/02/2017 55841 EST. PATIENT, LEVEL III Diagnosis: Acute laryngopharyngitis[ICD10: J06.0] Diagnosis: Cough[ICD10: R05] Diagnosis: Pleurodynia[ICD10: R07.81] Diagnosis: Other dorsalgia[ICD10: M54.89] Kassandra Spring MD, [facility] CPT-4: 86720 11/26/2016 ([id number]) 79775 EST. [facility], LEVEL IV Diagnosis: Essential (primary) hypertension[ICD10: I10] Diagnosis: Pain in left knee[ICD10: M25.562] Diagnosis: Low back pain[ICD10: M54.5] Diagnosis: Major depressive disorder, recurrent, moderate[ICD10: F33.1] Scarlett Spring MD, [facility] CPT-4: 65399 10/07/2016 ([id number]) 28772 EST. [facility], LEVEL IV Diagnosis: Essential (primary) hypertension[ICD10: I10] Diagnosis: Rash and other nonspecific skin eruption[ICD10: R21] Diagnosis: Major depressive disorder, recurrent, mild[ICD10: F33.0] Scarlett Spring MD, [facility] CPT-4: 65971 09/16/2016 88032 EST. PATIENT, LEVEL IV Diagnosis: Pain in left lower leg[ICD10: M79.662] Diagnosis: Pain in left knee[ICD10: M25.562] Kassandra Spring MD, [facility] CPT-4: 71244 09/07/2016 ([id number]) 50633 EST. [facility], LEVEL IV Diagnosis: Encounter for immunization[ICD10: Z23] Diagnosis: Essential (primary) hypertension[ICD10: I10] Diagnosis: Mixed hyperlipidemia[ICD10: E78.2] Scarlett Spring MD, [facility] CPT- 4: 81809 04/08/2016 ([id number]) 86119 EST. P ATIENT, LEVEL III Diagnosis: Essential (primary) hypertension[ICD10: I10] Diagnosis: Shortness of breath[ICD10: R06.02] Scarlett Spring MD, [facility] CPT- 4: 08050 03/05/2016 ([id number]) 01807 EST. P ATIENT, LEVEL III Diagnosis: Chronic obstructive pulmonary disease, unspecified[ICD10: J44.9] Scarlett Spring MD, [facility] CPT-4: 86012 12/04/2015 ([id number]) 74528 EST. P ATIENT, LEVEL IV Diagnosis: Essential (primary) hypertension[ICD10: I10] Diagnosis: Allergic rhinitis due to pollen[ICD10: J30.1] Scarlett Spring MD, [facility] CPT-4: 83579 11/18/2015 ([id number]) 82699 EST. P ATIENT, LEVEL IV Diagnosis: Localized edema[ICD10: R60.0] Diagnosis: Dysuria[ICD10: R30.0] Diagnosis: Essential (primary) hypertension[ICD10: I10] Diagnosis: Nausea[ICD10: R11.0] Alis Spring MD, [facility] CPT-4: 14217 09/30/2015 ([id number]) 28728 EST. P ATIENT, LEVEL II Diagnosis: Methicillin susceptible Staphylococcus aureus infection as the cause of diseases classified elsewhere[ICD10: B95.61] Diagnosis: Methicillin susceptible Staphylococcus aureus infection, unspecified site[ICD10: A49.01] Alis Spring MD, [facility] CPT-4: 87450 09/09/2015 ([id number]) 46929 EST. P ATIENT, LEVEL III Diagnosis: Dermatophytosis, unspecified[ICD10: B35.9] Diagnosis: Rash and other nonspecific skin eruption[ICD10: R21] Scarlett Spring MD, [facility] CPT-4: 35433 08/28/2015 ([id number]) 19684 EST. P ATIENT, LEVEL IV Diagnosis: Essential (primary) hypertension[ICD10: I10] Diagnosis: Gastro-esophageal reflux disease without esophagitis[ICD10: K21.9] Diagnosis: Other dorsalgia[ICD10: M54.89] [facility] CPT-4: 04603 07/09/2015 ([id number]) [facility] Diagnosis: ESSENTIAL HYPERTENSION[ICD9: 401.9] Diagnosis: Osteoporosis[ICD9: 733.00] Diagnosis: Back pain[ICD9: 724.5] Diagnosis: Insomnia[ICD9: 780.52] Diagnosis: ESOPHAGEAL REFLUX[ICD9: 530.81] [facility] CPT-4: 69234 03/06/2015 Plan of Care Planned Activity Notes [...] labs today 01/12/2019 Appointment: Alis Muhammad WPtel: [address] [place], [place] [phone] (30 min) Complex 01/12/2019 Patient Education: Patient Medication Summary Completed 01/12/2019 Patient Education: Back Pain Completed 01/12/2019 Appointment: Alis Muhammad WPtel: [phone] (30 min) Complex 12/13/2018 Visit Plan: Edema [...] warmth, discharge. 12/06/2018 Appointment: Alis Muhammad WPtel: [facility] (30 min) Complex 12/06/2018 Patient Education: Patient [...] as indicated 11/15/2018 Appointment: Alis Muhammad WPtel: [facility]4 [place] [phone] (15 min) Moderate 11/15/2018 Patient Education: Patient [...] ER 10/25/2018 Appointment: Alis Muhammad WPtel: [phone] (15 min) Moderate 10/25/2018 Patient Education: [...] Appointment: Alis Muhammad WPtel: [phone] [phone] (15 min) Moderate 10/13/2018 Patient Education: Patient [...] Dysuria-check Ua 09/15/2018 Appointment: Alis Muhammad WPtel: [phone] [phone] (30 min) Complex 09/15/2018 Patient Education: Patient [...] not improve 08/15/2018 Appointment: Alis Muhammad WPtel: [facility]7 [phone] (30 min) Complex 08/15/2018 Patient Education: Patient Medication Summary Completed 08/15/2018 Patient Education: Back Pain Completed 08/15/2018 Visit Plan: HTN-onofre induced cough-s top lisinopril -start losartan -monitor blood pressure and follow up in 2 weeks Low back pain-xray lumbar spine and refer for PT 08/01/2018 Appointment: Alis Muhammad WPtel: [phone] [phone] (15 min) Moderate 08/01/2018 Patient Education: Patient Medication Summary Completed 08/01/2018 Patient Education: Back Pain Completed 08/01/2018 Care Plan: X-RAY EXAM L-S SPINE 08/28 VWS LOINC : 13750-5 Pending 08/01/2018 Visit Plan: Hypertension - well [...] shot today. 04/20/2018 Appointment: Scarlett Spring WPtel: [facility]3 [facility] [place] (15 min) Moderate 04/20/2018 Patient Education: [...] surrogate. 02/09/2018 Appointment: Kassandra Argueta WPtel: [phone] [facility] [facility] - Annual Wellness Visit 02/09/2018 Patient Education: [...] every night. 12/16/2017 Appointment: Scarlett Spring WPtel: [facility]9 [facility] (15 min) Moderate 12/16/2017 Patient [...] becoming uncontrolled. 08/23/2017 Appointment: Scarlett Spring WPtel: [facility] (15 min) Moderate 08/23/2017 Patient Education: [...] to cardiology 02/03/2017 Appointment: Kassandra Argueta WPtel: [facility]8 [facility] [place] [address] - Annual Wellness Visit 02/03/2017 Patient Education: [...] home. 02/02/2017 Appointment: Scarlett Spring WPtel: [phone] [facility] (15 min) Moderate 02/02/2017 Patient Education: Patient [...] improve. 11/26/2016 Appointment: Kassandra Argueta WPtel: [phone] [phone] (30 min) Complex 11/26/2016 Patient Education: Patient [...] symptoms. 10/07/2016 Appointment: Scarlett Spring WPtel[facility] [phone] [facility] [place] (15 min) Moderate 10/07/2016 Patient Education: Patient Medication Summary Completed 10/07/2016 Patient Education: Obesity Completed 10/07/2016 Patient Education: Hypertension Completed 10/07/2016 Care Plan: VASCULAR STUDY Pending 10/04/2016 Care Plan: X-RAY EXAM OF KNEE 3 [facility] : 55265-2 Pending 10/04/2016 Visit Plan: Hypertension - well [...] paroxetine 09/16/2016 Appointment: Scarlett Spring WPtel: [phone] [facility] [place] (15 min) Moderate 09/16/2016 Patient Education: [...] 09/07/2016 Appointment: Kassandra Argueta WPtel: [phone] [facility] [place] (10 min) Simple 09/07/2016 Patient [...] order 04/08/2016 Appointment: Scarlett Spring WPtel[facility] [phone] [facility] [place] (15 min) Moderate 04/08/2016 Patient Education: [...] days. 03/05/2016 Appointment: Scarlett Spring WPtel[facility] [phone] [facility] [place] (15 min) Moderate 03/05/2016 Patient Education: Patient Medication Summary Completed 03/05/2016 Visit Plan: COPD - chronic problem for this patient. We have reviewed chronic treatment strategy, symptom control, and plans for acute exacerbations. No changes today to the current treatment plan as the patient is stable, monitor for acute changes. anoro samples given to the patient 12/04/2015 Appointment: Scarlett Spring WPtel[facility] [phone] [facility] [place] (15 min) Moderate 12/04/2015 Patient Education: [...] spray. 11/18/2015 Appointment: Scarlett Spring WPtel: [phone] [facility] (15 min) Moderate 11/18/2015 Patient Education: Patient Medication Summary Completed 11/18/2015 Patient Education: Obesity Completed 11/18/2015 Patient Education: Hypertension Completed 11/18/2015 Appointment: Scarlett Spring WPtel: [phone] [facility] (15 min) Moderate 11/07/2015 Visit Plan: Hypertension [...] Visit Plan: MSSA of groin and under midtuiw-dnlqusdyw-hynemy bactrim and call if rash does not [...] report. 08/28/2015 Appointment: Scarlett Spring WPtel: [phone] [facility] (15 min) Moderate 08/28/2015 Patient Education: Patient [...] improving. 07/09/2015 Appointment: Scarlett Spring WPtel: [phone] [facility] (15 min) Moderate 07/09/2015 Patient Education: Patient [...] improving. 03/06/2015 Appointment: Scarlett Spring WPtel[facility] [phone] [facility] [place] (S[facility] New Patient 03/06/2015 Patient Education: Patient Medication Summary Completed 03/06/2015 Patient Education: Hypertension Completed 03/06/2015 Instructions Comment . Hypertension - wel l [...] weeks ago and was evaluated in ER d/c losartan start valsartan 160mg daily increase [...] patient. Low back pain -improved-continue current treatment Ibuprofen 600mg thre e times a s [...] is worsening or does not improve. . Atrial fibrillatio n - appt with [...] current treatment. Depression - RX for paroxetine STOP LISINOPRIL -STA RT LOSARATAN 25MG DAILY [...] call if rash does not completely resolve CHECK URINE TODAY . Hypertension - well [...] will find out if anyone comes to [place] check UA start probiotic daily . Hypertension [...]
--- OUTSIDE RECORDS SUMMARY | 2020-01-23 14:14 | XMS REPORT | CCD ---
Author Author Jeannine Spring Organization Scarlett Spring MD, [facility] Address [address] [place] [address] Phone Care Team Providers Care Business Management Professor Name Role Phone PP Unavailable CCM Unavailable Summary Purpose Interface Exchange Insurance Providers Payer name Policy type / Coverage type Covered alliance party ID Effective Begin Date Effective End Date WPS Medicare Part B Medicare Part B [id number] Unknown SUPPLY [employer] Medicare Part B [id number] Unkn own Family history Mother Diagnosis Age At Onset Hypertension Unknown Heart Attack Unknown Brother Diagnosis Age At Onset Heart disease Unknown Runs in the family Diagnosis Age At Onset Heart disease Unknown Daughter Diagnosis Age At Onset Heart Attack Unknown Hyperlipidemia Unknown Hypertension Unknown Social History Social History Element Codes Description Effective Dates Number of children Unknown 2 daughter lives in [place], son - does not have contact 09/16/[address]: 7388256 Quit over 10 years ago 1990 - previously smoked 2ppd x 25 years. 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 Allergies, Adverse Reactions, Alerts Substance [...] Fill Instructions Ambien 10 mg tablet RxNorm: 277064 Tablet(s) TAKE ONE TABLET BY MOUTH AT BE DTIME NEEDED 12/21/2018 04/19/2019 Active mupirocin 2 % topica l ointment RxNorm: 604233 1 Application TOP BID 12/06/2018 12/19/2018 Inactive doxycycline hyclate 100 mg tablet RxNorm: 6810436 1 Tablet(s) PO BID 11/21/2018 11/27/2018 Inactive can exchange for capsule if cheaper doxycycline hyclate 100 mg tablet RxNorm: 2780079 1 Tablet(s) PO BID 11/21/2018 11/20/2018 Inactive simethicone 125 mg c hewable tablet RxNorm: 188841 1 Tablet(s) PO qid pr n 10/25/2018 No Stop Date Active promethazine 25 mg t ablet RxNorm: 866904 1 Tablet(s) PO Q6 PRN 10/25/2018 No Stop Date Active paroxetine 40 mg tablet RxNorm: 2122383 1 Tablet(s) PO daily 10/13/2018 04/10/2019 Active valsartan 160 mg tablet RxNorm: 574042 1 Tablet(s) PO daily 10/13/2018 04/10/2019 Active terazosin 5 mg capsule RxNorm: 151932 TAKE ONE CAPSULE BY MOUTH DAILY 09/23/2018 02/19/2019 Ac tive trazodone 50 mg tablet RxNorm: 322530 TAKE ONE TABLET BY MOUTH DAILY 09/23/2018 03/21/2019 Ac tive Ambien 10 mg tablet RxNorm: 095982 TAKE ONE TABLET BY MOUTH AT BEDTIME N EEDED 09/23/2018 11/20/2018 Inactive losartan 50 mg tablet RxNorm: 695040 1 Tablet(s) PO daily 09/15/2018 10/12/2018 Inactive omeprazole 20 mg cap marina,delayed release RxNorm: 237241 TAKE ONE CAPSULE BY M OUTH EVERY NIGHT AT BEDTIME 09/12/2018 03/10/2019 Active Keflex 500 mg capsule RxNorm: 894435 1 Capsule(s) PO TID 08/18/2018 08/17/2018 Inactive Keflex 500 mg capsule RxNorm: 948061 1 Capsule(s) PO TID 08/18/2018 08/24/2018 Inactive take probiotic while on abx paroxetine 20 mg tablet RxNorm: 6424034 TAKE ONE TABLET BY MOUTH DAILY 08/12/2018 10/12/2018 In active losartan 25 mg tablet RxNorm: 121196 1 Tablet(s) PO daily 08/01/2018 09/14/2018 Inactive losartan 25 mg tablet RxNorm: 902080 1 Tablet(s) PO daily 08/01/2018 10/12/2018 Inactive trazodone 50 mg tablet RxNorm: 426362 TAKE ONE TABLET BY MOUTH DAILY 07/25/2018 09/22/2018 In active Ambien 10 mg tablet RxNorm: 243955 Tablet(s) TAKE ONE TABLET BY MOUTH AT BE DTIME 06/24/2018 09/23/2018 Inactive trazodone 50 mg tablet RxNorm: 454571 TAKE ONE TABLET BY MOUTH DAILY 04/25/2018 07/23/2018 In active Ambien 10 mg tablet RxNorm: 927017 Tablet(s) TAKE ONE TABLET BY MOUTH AT BE DTIME 03/23/2018 06/19/2018 Inactive terazosin 5 mg capsule RxNorm: 588996 TAKE ONE CAPSULE BY MOUTH DAILY 03/14/2018 09/09/2018 In active Ambien 10 mg tablet RxNorm: 292022 Tablet(s) TAKE ONE TABLET BY MOUTH AT BE DTIME 01/18/2018 09/14/2018 Inactive trazodone 50 mg tablet RxNorm: 186790 TAKE ONE TABLET BY MOUTH ONCE DAILY 01/10/2018 03/22/2018 In active trazodone 50 mg tablet RxNorm: 984198 Tablet(s) TAKE ONE TABLET BY MOUTH ONCE DAILY 01/10/2018 04/24/2018 Inactive Ambien 10 mg tablet RxNorm: 338612 Tablet(s) TAKE ONE TABLET BY MOUTH AT BE DTIME 10/22/2017 01/17/2018 Inactive trazodone 50 mg tablet RxNorm: 044141 TAKE ONE TABLET BY MOUTH ONCE DAILY 10/18/2017 01/09/2018 In active omeprazole 20 mg cap marina,delayed release RxNorm: 951526 TAKE ONE CAPSULE BY M OUTH ONCE DAILY AT BEDTIME 08/27/2017 09/11/2018 Inactive trazodone 50 mg tablet RxNorm: 639880 TAKE ONE TABLET BY MOUTH ONCE DAILY 08/18/2017 10/17/2017 In active Ambien 10 mg tablet RxNorm: 817583 Tablet(s) TAKE ONE TABLET BY MOUTH AT BE DTIID 08/18/2017 03/22/2018 Inactive paroxetine 20 mg tablet RxNorm: 0380314 TAKE ONE TABLET BY MOUTH ONCE DAILY 07/27/2017 08/11/2018 In active Ambien 10 mg tablet RxNorm: 429691 Tablet(s) TAKE ONE TABLET BY MOUTH AT BE DTIID 06/23/2017 03/22/2018 Inactive omeprazole 20 mg cap marina,delayed release RxNorm: 472057 TAKE ONE CAPSULE BY M OUTH ONCE DAILY AT BEDTIME 04/23/2017 08/20/2017 Inactive trazodone 50 mg tablet RxNorm: 639298 TAKE ONE TABLET BY MOUTH ONCE DAILY 04/13/2017 08/10/2017 In active terazosin 5 mg capsule RxNorm: 288092 Capsule(s) TAKE ONE CAPSULE BY MOUTH TATA 04/08/2017 03/03/2018 In active Ambien 10 mg tablet RxNorm: 701548 Tablet(s) TAKE ONE TABLET BY MOUTH AT BE DTIID 02/17/2017 03/22/2018 Inactive Tylenol-Codeine #3 3 00 mg-30 mg tablet RxNorm: 826135 1 Tablet(s) PO QID as needed 02/02/2017 11/14/2018 In active metoprolol succinate ER 50 mg tablet,extended release 24 hr RxNorm: 671472 TAKE ONE TABLET BY MOUTH ONCE DAILY 12/23/2016 02/02/2017 Inactive Zithromax Z-Ted 250 mg tablet RxNorm: 228533 1 Tablet(s) PO UD 11/26/2016 02/16/2017 Inactive trazodone 50 mg tablet RxNorm: 712438 TAKE ONE TABLET BY MOUTH ONCE DAILY 11/12/2016 03/11/2017 In active Ambien 10 mg tablet RxNorm: 576453 Tablet(s) TAKE ONE TABLET BY MOUTH AT BE DTIID 10/22/2016 02/15/2017 Inactive paroxetine 20 mg tablet RxNorm: 4032139 1 Tablet(s) PO daily TAKE ONE TABLET BY MOUTH DAILY 09/16/2016 06/12/2017 Inactive meloxicam 7.5 mg tablet RxNorm: 241510 1 Tablet(s) PO daily 09/16/2016 11/14/2016 Inactive Protonix 40 mg table t,delayed release RxNorm: 511962 1 Tablet(s) PO daily 09/16/2016 08/22/2017 In active sucralfate 1 gram ta blet RxNorm: 189458 1 Tablet(s) PO TID 09/16/2016 08/22/2017 Inactive Ambien 10 mg tablet RxNorm: 673307 Tablet(s) TAKE ONE TABLET BY MOUTH AT DTIID 08/24/2016 03/22/2018 Inactive trazodone 50 mg tablet RxNorm: 864789 Tablet(s) TAKE ONE TABLET BY MOUTH DAILY 07/29/2016 11/11/2016 In active Ambien 10 mg tablet RxNorm: 009072 TAKE ONE TABLET BY MOUTH AT BEDTIME 06/23/2016 03/22/2018 In active Ambien 10 mg tablet RxNorm: 503462 Tablet(s) TAKE ONE TABLET BY MOUTH EVERY NIGHT AT BEDTIME 06/22/2016 06/23/2016 Inactive Lasix 40 mg tablet RxNorm: 124599 1 Tablet(s) PO daily as needed for swell ing 04/03/2016 09/15/2016 In active potassium chloride E R 20 mEq tablet,extended release RxNorm: 663217 1 Tablet(s) PO daily for swelling take with lasix as needed 04/03/2016 09/15/2016 Inactive Ambien 10 mg tablet RxNorm: 607742 Tablet(s) TAKE ONE TABLET BY MOUTH EVERY NIGHT AT BEDTIME 04/03/2016 03/22/2018 Inactive omeprazole 20 mg cap marina,delayed release RxNorm: 096890 TAKE ONE CAPSULE BY M OUTH EVERY NIGHT AT BEDTIME 03/31/2016 09/15/2016 Inactive paroxetine 20 mg tablet RxNorm: 1264569 TAKE ONE TABLET BY MOUTH DAILY 03/31/2016 09/15/2016 In active trazodone 50 mg tablet RxNorm: 509943 TAKE ONE TABLET BY MOUTH DAILY 03/20/2016 07/28/2016 In active terazosin 5 mg capsule RxNorm: 574423 TAKE ONE CAPSULE BY MOUTH DAILY 03/06/2016 10/06/2016 In active Ambien 10 mg tablet RxNorm: 571796 Tablet(s) TAKE ONE TABLET BY MOUTH EVERY NIGHT AT BEDTIME 01/17/2016 04/02/2016 Inactive loratadine 10 mg tablet RxNorm: 512846 1 Tablet(s) PO daily 01/15/2016 09/15/2016 Inactive mupirocin 2 % topica l ointment RxNorm: 191051 1 Application TOP TID 11/18/2015 12/01/2015 Inactive metoprolol succinate ER 50 mg tablet,extended release 24 hr RxNorm: 797744 1 Tablet(s) PO daily 11/18/2015 11/11/2016 Inactive loratadine 10 mg tablet RxNorm: 602273 1 Tablet(s) PO daily 11/18/2015 01/14/2016 Inactive Lasix 40 mg tablet RxNorm: 582494 1 Tablet(s) PO daily as needed for swell ing 10/30/2015 11/28/2015 In active potassium chloride E R 20 mEq tablet,extended release RxNorm: 820536 1 Tablet(s) PO daily for swelling take with lasix as needed 10/30/2015 11/28/2015 Inactive Tylenol-Codeine #3 3 00 mg-30 mg tablet RxNorm: 709588 1 Tablet(s) PO QID as needed 10/25/2015 02/01/2017 In active Ambien 10 mg tablet RxNorm: 356491 Tablet(s) TAKE ONE TABLET BY MOUTH EVERY NIGHT AT BEDTIME 10/18/2015 03/22/2018 Inactive Diflucan 150 mg tablet RxNorm: 390154 1 Tablet(s) PO daily 10/01/2015 12/03/2015 Inactive Lasix 20 mg tablet RxNorm: 676506 1 Tablet(s) PO PRN fror swelling 09/27/2015 10/29/2015 In active potassium chloride E R 10 mEq capsule,extended release RxNorm: 270851 1 Capsule(s) PO PRN for swelling take with lasix 09/27/2015 10/29/2015 Inactive Bactrim DS 800 mg-16 0 mg tablet RxNorm: 137209 1 Tablet(s) PO BID 09/02/2015 09/11/2015 Inactive Bactrim DS 800 mg-16 0 mg tablet RxNorm: 131994 1 Tablet(s) PO BID 09/02/2015 09/01/2015 Inactive nystatin 100,000 uni t/gram topical cream RxNorm: 696555 1 Gram(s) TOP TID 08/28/2015 09/26/2015 In active Diflucan 150 mg tablet RxNorm: 557408 1 Tablet(s) PO daily 08/28/2015 09/06/2015 Inactive betamethasone diprop ionate 0.05 % topical ointment RxNorm: 068642 1 Application TOP TID to affected area 08/02/2015 02/01/2017 Inactive nystatin 100,000 uni t/gram topical powder RxNorm: 967221 1 Gram(s) TOP QID 07/09/2015 08/01/2015 In active Ambien 10 mg tablet RxNorm: 123980 1 Tablet(s) PO QHS 06/19/2015 06/18/2015 Inactive Ambien 10 mg tablet RxNorm: 201946 TAKE ONE TABLET BY MOUTH EVERY NIGHT AT BEDTIME 06/19/2015 09/16/2015 Inactive Vitamin D2 50,000 un it capsule RxNorm: 834969 1 Capsule(s) PO QW 03/07/2015 03/06/2015 Inactive Vitamin D2 50,000 un it capsule RxNorm: 664501 1 Capsule(s) PO QW 03/07/2015 05/05/2015 Inactive terazosin 5 mg capsule RxNorm: 918040 1 Capsule(s) PO daily 03/06/2015 02/28/2016 Inactive [SAVINGS FOR NON-COVERED DRUGS -- BIN:00 3585, PCN: ASPROD1, Group: XXXXX, ID# [id number], Questions: . THIS IS NOT INSURANCE.] trazodone 50 mg tablet RxNorm: 616803 1 Tablet(s) PO daily 03/06/2015 02/28/2016 Inactive paroxetine 20 mg tablet RxNorm: 9019058 1 Tablet(s) PO daily 03/06/2015 02/28/2016 Inactive Tylenol-Codeine #3 3 00 mg-30 mg tablet RxNorm: 176676 1 Tablet(s) PO QID as needed 03/06/2015 07/02/2015 In active amlodipine 10 mg tablet RxNorm: 539834 1 Tablet(s) PO daily 03/06/2015 11/17/2015 Inactive metoprolol succinate ER 25 mg tablet,extended release 24 hr RxNorm: 093907 1 Tablet(s) PO daily 03/06/2015 11/17/2015 Inactive omeprazole 20 mg cap marina,delayed release RxNorm: 154289 1 Capsule(s) PO QHS 03/06/2015 02/28/2016 In active omeprazole 20 mg cap marina,delayed release RxNorm: 384031 1 Capsule(s) PO QHS 01/31/2015 01/30/2015 In active omeprazole 20 mg cap marina,delayed release RxNorm: 555633 1 Capsule(s) PO QHS 01/31/2015 01/30/2015 In active omeprazole 20 mg cap marina,delayed release RxNorm: 932690 1 Capsule(s) PO QHS 01/31/2015 03/05/2015 In active Ambien 10 mg tablet RxNorm: 640861 1 Tablet(s) PO QHS 12/25/2014 04/21/2015 Inactive paroxetine 20 mg tablet RxNorm: 448147 1 Tablet(s) PO daily 12/25/2014 12/24/2014 Inactive Ambien 10 mg tablet RxNorm: 253645 1 Tablet(s) PO QHS 12/25/2014 12/24/2014 Inactive paroxetine 20 mg tablet RxNorm: 929576 1 Tablet(s) PO daily 12/25/2014 03/05/2015 Inactive terazosin 5 mg capsule RxNorm: 494234 1 Capsule(s) PO daily 11/23/2014 03/05/2015 Inactive [SAVINGS FOR NON-COVERED DRUGS -- BIN:00 6699, PCN: ASPROD1, Group: XXXXX, ID# [id number], Questions: . THIS IS NOT INSURANCE.] terazosin 5 mg capsule RxNorm: 403622 1 Capsule(s) PO daily 11/23/2014 11/22/2014 Inactive Lasix 20 mg tablet RxNorm: 525692 1 Tablet(s) PO daily No Start Date Active K-Dur 10 mEq tablet, extended release RxNorm: 152335 1 Tablet(s) PO daily No Start Date Active hydrochlorothiazide 25 mg tablet RxNorm: 438109 1 Tablet(s) PO daily No Start Date Active Vitamin D3 2,000 uni t tablet RxNorm: 598013 1 Tablet(s) PO daily No Start Date Active amiodarone 200 mg ta blet RxNorm: 132980 1 Tablet(s) PO BID No Start Date Active Zetia 10 mg tablet RxNorm: 879368 1 Tablet(s) PO daily No Start Date Active Lipitor 80 mg tablet RxNorm: 616891 1/2 Tablet(s) PO daily No Start Date Active Coumadin 4 mg tablet RxNorm: 710780 1 Tablet(s) PO daily No Start Date Active metoprolol succinate ER 25 mg tablet,extended release 24 hr RxNorm: 667106 1 Tablet(s) PO daily No Start Date 03/05/2015 Inactive Entresto 49 mg-51 mg tablet RxNorm: 5743345 1 Tablet(s) PO BID No Start Date 04/19/2018 Inactive sotalol 80 mg tablet RxNorm: 1515786 1 Tablet(s) PO BID No Start Date 04/19/2018 Inactive betamethasone diprop ionate 0.05 % topical ointment RxNorm: 106004 1 Application TOP TID to affected area No Start Date 08/01/2015 Inactive trazodone 50 mg tablet RxNorm: 528381 1 Tablet(s) PO daily No Start Date 03/05/2015 Inactive potassium chloride E R 10 mEq capsule,extended release RxNorm: 953539 1 Capsule(s) PO PRN for swelling take with lasix No Start Date 09/26/2015 Inactive Eliquis 5 mg tablet RxNorm: 6555042 1 Tablet(s) PO BID No Start Date 09/14/2018 Inactive amlodipine 10 mg tablet RxNorm: 086108 1 Tablet(s) PO daily No Start Date 03/05/2015 Inactive isosorbide mononitra te ER 30 mg tablet,extended release 24 hr RxNorm: 511818 1 Tablet(s) PO daily No Start Date 08/22/2017 Inactive aspirin 81 mg tablet ,delayed release RxNorm: 224264 1 Tablet(s) PO daily No Start Date 02/02/2017 Inactive Lasix 20 mg tablet RxNorm: 873523 1 Tablet(s) PO PRN fror swelling No Start Date 09/26/2015 Inactive lisinopril 5 mg tablet RxNorm: 675376 1 Tablet(s) PO daily No Start Date 07/31/2018 Inactive Crestor 40 mg tablet RxNorm: 235386 1 Tablet(s) PO daily No Start Date 09/15/2016 Inactive metoprolol succinate ER 100 mg tablet,extended release 24 hr RxNorm: 486523 1 Tablet(s) PO daily No Start Date [...] Code Item Item Code Result Date Pt [id number] PT 24.7 seconds 01/12/2019 Pt Bgm3215 INR 2.3 01/12/2019 Pt Deq2938 Low Intensity - 1.5-2.0 01/12/2019 Pt Wqv6406 Mod intensity - 2.0-3.0 01/12/2019 Pt Wry2513 Hi intensity - 3.0-4.0 01/12/2019 Cbc With [...] 27.0 pg 01/12/2019 Cbc With Differential Ord2 [place]% 11.1 % 01/12/2019 Cbc With Differential Ord2 Eos% 3.9 % 01/12/2019 Cbc With Differential Ord2 MCHC 31.1 pg 01/12/2019 Cbc With Differential Ord2 PLT 234 K/ul 01/12/2019 Cbc With Differential Ord2 Baso% 0.3 % 01/12/2019 Cbc With Differential Ord2 RDW 19.8 % 01/12/2019 Cbc With Differential Ord2 Neut ABS# 2.13 K/ul 01/12/2019 Cbc With Differential Ord2 Lymph ABS# 0.92 K/ul 01/12/2019 Cbc With Differential Ord2 [place] ABS# 0.4 K/ul 01/12/2019 Cbc With Differential Ord2 Eos ABS# 0.1 K/ul 01/12/2019 Cbc With Differential Ord2 Baso ABS# 0.0 K/ul 01/12/2019 Urine Culture Ucult Comp lete >100,000 col/ml aerobic grow th sent to ref lab 11/16/2018 Culture Urine [id number] URI NE CULTURE SEE NOTES 08/22/2018 Culture Urine [id number] Con tinued Results 08/22/2018 Urine Culture Ucult Comp lete >100,000 col/ml aerobic grow th sent to ref lab 08/19/2018 Comp Metabolic Zsh499 NA 140 mEq/L 08/01/2018 Comp Metabolic Qxb449 K 4.2 mEq/L 08/01/2018 Comp Metabolic Xfs779 CL 102 mEq/L 08/01/2018 Comp Metabolic Iyj216 CO2 27.0 mEq/L 08/01/2018 Comp Metabolic Unq108 AN ION GAP 15 08/01/2018 Comp Metabolic Zep846 GL UCOSE 107 mg/dL 08/01/2018 Comp Metabolic Ift025 Cr eat 1.0 mg/dL 08/01/2018 Comp Metabolic Oft096 eG FR 58 ml/min/1.73m2 08/01 Comp Metabolic Pfj217 BUN 10 mg/dL 08/01/2018 Comp Metabolic Wno049 B/ C Ratio 10.0 Ratio 08/01/2018 Comp Metabolic Oyb712 CA LCIUM 8.9 mg/dL 08/01/2018 Comp Metabolic Yjy372 AL K PHOS 68 U/L 08/01/2018 Comp Metabolic Yvn095 T(SGOT) 18 U/L 08/01/2018 Comp Metabolic Swd927 AL T(SGPT) 14 U/L 08/01/2018 Comp Metabolic Yyt639 BI LI T 0.5 mg/dL 08/01/2018 Comp Metabolic Dfn934 AL BUMIN 4.0 g/dL 08/01/2018 Comp Metabolic Xuv950 TP RO 6.3 g/dL 08/01/2018 Comp Metabolic Wsr162 GL OB 2.3 g/dL 08/01/2018 Comp Metabolic Slf639 A/ G Ratio 1.7 Ratio 08/01/2018 Comp Metabolic Mae590 Os mo 279 mOsmo 08/01/2018 Tsh Ord6 [...] 27.3 pg 08/01/2018 Cbc With Differential Ord2 [place]% 9.8 % 08/01/2018 Cbc With Differential Ord2 [...] 0.79 K/ul 08/01/2018 Cbc With Differential Ord2 [place] ABS# 0.4 K/ul 08/01/2018 Cbc With Differential Ord2 Eos ABS# 0.1 K/ul 08/01/2018 Cbc With Differential Ord2 Baso ABS# 0.0 K/ul 08/01/2018 Lipid Ord30 CHOL 234 mg/dL 08/01/2018 Lipid Ord30 HDL 69.0 mg/dl 08/01/2018 Lipid Ord30 TRIG 57 mg/dL 08/01/2018 Lipid Ord30 LDL 154 mg/dL 08/01/2018 Lipid Ord30 C/HDL 3.4 Ratio 08/01/2018 Comp Metabolic Qne831 NA 137 mEq/L 09/30/2015 Comp Metabolic Lld172 K 4.5 mEq/L 09/30/2015 Comp Metabolic Xlc885 CL 102 mEq/L 09/30/2015 Comp Metabolic Jia417 CO2 26.0 mEq/L 09/30/2015 Comp Metabolic Ggp391 AN ION GAP 14 09/30/2015 Comp Metabolic Abn795 GL UCOSE 89 mg/dL 09/30/2015 Comp Metabolic Gxz497 Cr eat 0.8 mg/dL 09/30/2015 Comp Metabolic Odd914 eG FR 79 ml/min/1.73m2 09/29 Comp Metabolic Uou884 BUN 14 mg/dL 09/30/2015 Comp Metabolic Loj564 B/ C Ratio 18.2 Ratio 09/30/2015 Comp Metabolic Nua938 CA LCIUM 8.9 mg/dL 09/30/2015 Comp Metabolic Ixn981 AL K PHOS 65 U/L 09/30/2015 Comp Metabolic Dac730 T(SGOT) 26 U/L 09/30/2015 Comp Metabolic Haf884 AL T(SGPT) 18 U/L 09/30/2015 Comp Metabolic Pyn412 BI LI T 0.6 mg/dL 09/30/2015 Comp Metabolic Wba430 AL BUMIN 3.8 g/dL 09/30/2015 Comp Metabolic Hng537 TP RO 6.6 g/dL 09/30/2015 Comp Metabolic Zaz060 GL OB 2.8 g/dL 09/30/2015 Comp Metabolic Ead732 A/ G Ratio 1.4 Ratio 09/30/2015 Comp Metabolic Vmj842 Os mo 274 mOsmo 09/30/2015 Cbc With [...] 27.7 pg 09/30/2015 Cbc With Differential Ord2 [place]% 10.7 % 09/30/2015 Cbc With Differential Ord2 [...] 1.10 K/ul 09/30/2015 Cbc With Differential Ord2 [place] ABS# 0.6 K/ul 09/30/2015 Cbc With Differential Ord2 Eos ABS# 0.2 K/ul 09/30/2015 Cbc With Differential Ord2 Baso ABS# 0.0 K/ul 09/30/2015 Cbc With Differential Ord2 New Analyzer Notice Please note new ref ranges s tarting 08-07-2015 due to implemntation of new five part differential hematolgy analyzer. 09/30/2015 Tsh Ord6 hTSH II 1.05 uIU/mL 03/06/2015 Comp Metabolic Oul391 NA 137 mEq/L 03/06/2015 Comp Metabolic Bfb496 K 4.3 mEq/L 03/06/2015 Comp Metabolic Lnd887 CL 104 mEq/L 03/06/2015 Comp Metabolic Vnv136 CO2 28.0 mEq/L 03/06/2015 Comp Metabolic Uel087 AN ION GAP 9 03/06/2015 Comp Metabolic Gkt408 GL UCOSE 93 mg/dL 03/06/2015 Comp Metabolic Qke119 Cr eat 0.8 mg/dL 03/06/2015 Comp Metabolic Lzm896 eG FR 81 ml/min/1.73m2 03/06 Comp Metabolic Fis531 BUN 12 mg/dL 03/06/2015 Comp Metabolic Mct851 B/ C Ratio 16.0 Ratio 03/06/2015 Comp Metabolic Ddf506 CA LCIUM 8.9 mg/dL 03/06/2015 Comp Metabolic Ypl791 AL K PHOS 56 U/L 03/06/2015 Comp Metabolic Ija766 T(SGOT) 22 U/L 03/06/2015 Comp Metabolic Wpq245 AL T(SGPT) 15 U/L 03/06/2015 Comp Metabolic Jrs145 BI LI T 0.4 mg/dL 03/06/2015 Comp Metabolic Ewr535 AL BUMIN 4.0 g/dL 03/06/2015 Comp Metabolic Vlc539 TP RO 6.5 g/dL 03/06/2015 Comp Metabolic Hrh838 GL OB 2.5 g/dL 03/06/2015 Comp Metabolic Ezn646 A/ G Ratio 1.6 Ratio 03/06/2015 Comp Metabolic Obt280 Os mo 273 mOsmo 03/06/2015 Vitamin D 25 Oh Lji2106 VITAMIN D, 25 HYDROXY 28.14 ng/mL 03/06/2015 [...] 1995 Ears/Nose/Throat oral cavity/pharynx/larynx Overall: hypopharynx benign 10/13/2018 [...] tenderness 08/01/2018 None Full Exam - General 1995 Abdomen abdominal exam Overall: normal bowel sounds [...] distress 04/20/2018 None Full Exam - General 1995 [...] Date URINALYSIS NONAUTO W /O SCOPE CPT-4: 95664 01/12/2019 URINALYSIS NONAUTO W /O SCOPE CPT-4: 65035 12/06/2018 URINALYSIS NONAUTO W /O SCOPE CPT-4: 49166 11/15/2018 URINALYSIS NONAUTO W /O SCOPE CPT-4: 83608 08/18/2018 ADMIN INFLUENZA VIRU S VAC CPT-4: G0008 04/20/2018 FLU VACC PRSV FREE I NC ANTIG Formatting Model/CDA Sections, Assigned to/Amparo Mims CPT-4: 85556Myxskvo 04/20/2018 PPPS, SUBSEQ VISIT CPT- 4: G0439 02/09/2018 PPPS, SUBSEQ VISIT CPT- 4: G0439 02/03/2017 ADMIN INFLUENZA VIRU S VAC CPT-4: G0008 04/08/2016 ADMIN PNEUMOCOCCAL V ACCINE SNOMED CT: 57825527 CPT-4: G0009 04/08/2016 PNEUMOCOCCAL VACC [address]: 86849840 CPT-4: 45807 04/08/2016 FLU VACC PRSV FREE I NC ANTIG CPT-4: 69617 04/08/2016 Vital Signs Date Vital 01/12/2019 Blood Pressure 1: 128/68 Code: 8480-6 BMI: 41.2 Code: 88149-1 Heart Rate 1: 82 bpm Height: 5'7" SpO2: 92% Weight: 263 lbs 12/06/2018 Blood Pressure 1: 118/70 Code: 8480-6 BMI: 41.5 Code: 64426-3 Heart Rate 1: 97 bpm Height: 5'7" SpO2: 96% Weight: 265 lbs 11/15/2018 Blood Pressure 1: 144/76 Code: 8480-6 BMI: 42.3 Code: 19918-8 Heart Rate 1: 82 bpm Height: 5'7" SpO2: 96% Weight: 270 lbs 10/25/2018 Blood Pressure 1: 128/80 Code: 8480-6 BMI: 42.0 Code: 83694-7 Heart Rate 1: 93 bpm Height: 5'7" SpO2: 95% Weight: 268 lbs 10/13/2018 Blood Pressure 1: 162/76 Code: 8480-6 BMI: 42.0 Code: 49280-4 Heart Rate 1: 71 bpm Height: 5'7" SpO2: 96% Weight: 268 lbs 09/15/2018 Blood Pressure 1: 154/86 Code: 8480-6 BMI: 42.9 Code: 09243-0 Heart Rate 1: 88 bpm Height: 5'7" SpO2: 94% Weight: 274 lbs 08/15/2018 Blood Pressure 1: 140/90 Code: 8480-6 BMI: 40.7 Code: 08859-4 Heart Rate 1: 70 bpm Height: 5'7" SpO2: 93% Weight: 260 lbs 08/01/2018 Blood Pressure 1: 130/70 Code: 8480-6 BMI: 40.7 Code: 47182-4 Heart Rate 1: 80 bpm Height: 5'7" SpO2: 93% Weight: 260 lbs 04/20/2018 Blood Pressure 1: 128/68 Code: 8480-6 BMI: 41.7 Code: 31950-6 Heart Rate 1: 85 bpm Height: 5'7" SpO2: 94% Weight: 266 lbs 02/09/2018 Blood Pressure 1: 118/70 Code: 8480-6 BMI: 42.1 Code: 08787-1 Heart Rate 1: 58 bpm Height: 5'7" SpO2: 94% Weight: 269 lbs 12/16/2017 Blood Pressure 1: 132/86 Code: 8480-6 BMI: 42.7 Code: 11593-6 Heart Rate 1: 63 bpm Height: 5'7" SpO2: 94% Weight: 272 lbs 14 o z 08/23/2017 Blood Pressure 1: 150/82 Code: 8480-6 BMI: 42.0 Code: 73398-3 Heart Rate 1: 66 bpm Height: 5'7" SpO2: 96% Weight: 268 lbs 02/03/2017 Blood Pressure 1: 138/72 Code: 8480-6 BMI: 41.2 Code: 21714-3 Heart Rate 1: 96 bpm Height: 5'7" SpO2: 97% Weight: 263 lbs 02/02/2017 Blood Pressure 1: 140/90 Code: 8480-6 BMI: 41.2 Code: 77725-2 Heart Rate 1: 103 bpm Height: 5'7" SpO2: 94% Weight: 263 lbs 11/26/2016 Blood Pressure 1: 152/88 Code: 8480-6 BMI: 41.0 Code: 55371-7 Heart Rate 1: 71 bpm Height: 5'7" SpO2: 94% Temperature: 37.7 (C ) / 99.8 (F) Weight: 262 lbs 10/07/2016 Blood Pressure 1: 148/82 Code: 8480-6 BMI: 41.7 Code: 52333-5 Heart Rate 1: 58 bpm Height: 5'7" SpO2: 96% Weight: 266 lbs 09/16/2016 Blood Pressure 1: 122/70 Code: 8480-6 BMI: 42.0 Code: 33411-5 Heart Rate 1: 65 bpm Height: 5'7" SpO2: 96% Weight: 268 lbs 09/07/2016 Blood Pressure 1: 154/60 Code: 8480-6 BMI: 42.3 Code: 38509-4 Heart Rate 1: 101 bpm Height: 5'7" SpO2: 97% Weight: 270 lbs 04/08/2016 Blood Pressure 1: 128/70 Code: 8480-6 BMI: 41.4 Code: 45468-3 Heart Rate 1: 62 bpm Height: 5'7" SpO2: 95% Weight: 264 lbs 8 oz 03/05/2016 Blood Pressure 1: 144/78 Code: 8480-6 Blood Pressure 1: 139/72 Code: 8480-6 BMI: 41.9 Code: 46877-5 Heart Rate 1: 71 bpm Height: 5'7" SpO2: 93% Weight: 267 lbs 8 oz 12/04/2015 Blood Pressure 1: 132/70 Code: 8480-6 BMI: 41.3 Code: 77002-4 Heart Rate 1: 56 bpm Height: 5'7" SpO2: 96% Weight: 264 lbs 11/18/2015 Blood Pressure 1: 138/72 Code: 8480-6 BMI: 41.0 Code: 54845-7 Heart Rate 1: 85 bpm Height: 5'7" SpO2: 93% Weight: 262 lbs 09/30/2015 Blood Pressure 1: 128/76 Code: 8480-6 BMI: 41.2 Code: 57427-0 Heart Rate 1: 70 bpm Height: 5'7" SpO2: 93% Weight: 263 lbs 09/09/2015 Blood Pressure 1: 138/80 Code: 8480-6 BMI: 40.3 Code: 04603-5 Heart Rate 1: 84 bpm Height: 5'7" SpO2: 95% Weight: 257 lbs 08/28/2015 Blood Pressure 1: 122/72 Code: 8480-6 BMI: 39.6 Code: 50596-9 Heart Rate 1: 75 bpm Height: 5'7" SpO2: 96% Weight: 253 lbs 07/09/2015 Blood Pressure 1: 140/78 Code: 8480-6 Blood Pressure 1: 135/78 Code: 8480-6 BMI: 39.5 Code: 52922-9 Heart Rate 1: 62 bpm Height: 5'7" SpO2: 95% Weight: 252 lbs 03/06/2015 Blood Pressure 1: 142/88 Code: 8480-6 BMI: 39.3 Code: 15174-2 Heart Rate 1: 65 bpm Height: 5'7" [...] rs ago 10/25/2018 None Location in the [facility] area 10/25/2018 None Quality burning 10/25/2018 [...] week 02/09/2018 None Annual Medicare Wellness Exam Handgretchen ng Stress usually dulce effectively 02/09/2018 None Annual Medicare Wellness Exam Alcohol Use does not drink any alcohol 02/09/2018 None Annual Medicare Wellness Exam Aspirin Use no 02/09/2018 None Annual Medicare Wellness Exam Blood Glucose (self reported) desireable (below 100) 02/09/2018 None Annual Medicare Wellness Exam Blood Pressure (self reported) diagnosed with hypertension 02/10/20 None Annual Medicare Wellness Exam Choles terol [...] exercise 02/03/2017 None Annual Medicare Wellness Exam Handgretchen ng Stress usually dulce effectively 02/03/2017 None [...] home 09/16/2016 None Hospital Follow Up _ [facility] er: chest pressure 09/16/2016 None Hospital Follow Up Quality acute 09/16/2016 None Hospital Follow Up Onset of Symptom 3 weeks ago 09/16/2016 None depression Quality worse [place] 09/16/2016 None depression Onset and Resolution ongoing 09/16/2016 None depression Quality chron ic 09/16/2016 None low back pain Location o n both sides 09/16/2016 None low back pain Quality ac [place] 09/16/2016 None low back pain Onset and [...] Encounters Encounter Performer Loca tion Codes Date ([id number]) 22238 EST. P ATIENT, LEVEL IV Diagnosis: Essential (primary) hypertension[ICD10: I10] Diagnosis: Chronic atrial fibrillation[ICD10: I48.2] Diagnosis: Localized edema[ICD10: R60.0] Diagnosis: Dysuria[ICD10: R30.0] Diagnosis: Low back pain[ICD10: M54.5] Diagnosis: Vitamin D deficiency, unspecified[ICD10: E55.9] Alis Spring MD, [facility] CPT-4: 53184 01/12/2019 [id number]) 07324 EST. P ATIENT, LEVEL IV Diagnosis: Localized edema[ICD10: R60.0] Diagnosis: Dysuria[ICD10: R30.0] Diagnosis: Cellulitis of abdominal wall[ICD10: L03.311] Alis Spring MD, [facility] CPT-4: 28545 12/06/[id number]) 77506 EST. P ATIENT, LEVEL III Diagnosis: Dysuria[ICD10: R30.0] Diagnosis: Essential (primary) hypertension[ICD10: I10] Diagnosis: Major depressive disorder, recurrent, moderate[ICD10: F33.1] Alis Spring MD, [facility] CPT-4: 92021 11/15/2018 ([id number]) 80275 EST. P ATIENT, LEVEL IV Diagnosis: Eructation[ICD10: R14.2] Diagnosis: Nausea[ICD10: R11.0] Diagnosis: Chest pain, unspecified[ICD10: R07.9] Diagnosis: Diarrhea, unspecified[ICD10: R19.7] Alis Spring MD, [facility] CPT-4: 61996 10/25/2018 ([id number]) 20641 EST. P ATIENT, LEVEL IV Diagnosis: Essential (primary) hypertension[ICD10: I10] Diagnosis: Low back pain[ICD10: M54.5] Diagnosis: Major depressive disorder, recurrent, moderate[ICD10: F33.1] Alis Spring MD, [facility] CPT-4: 44606 10/13/2018 ([id number]) 70845 EST. P ATIENT, LEVEL IV Diagnosis: Essential (primary) hypertension[ICD10: I10] Diagnosis: Dysuria[ICD10: R30.0] Diagnosis: Low back pain[ICD10: M54.5] Alis Spring MD, [facility] CPT- 4: 26357 09/15/2018 ([id number]) 28567 EST. P ATIENT, LEVEL III Diagnosis: Essential (primary) hypertension[ICD10: I10] Diagnosis: Low back pain[ICD10: M54.5] Alis Spring MD, [facility] CPT- 4: 61090 08/15/2018 ([id number]) 53877 EST. P ATIENT, LEVEL III Diagnosis: Essential (primary) hypertension[ICD10: I10] Diagnosis: Cough[ICD10: R05] Diagnosis: Low back pain[ICD10: M54.5] Alis Spring MD, [facility] CPT- 4: 33291 08/01/2018 ([id number]) 02695 EST. P ATIENT, LEVEL IV Diagnosis: Encounter for immunization[ICD10: Z23] Diagnosis: Essential (primary) hypertension[ICD10: I10] Diagnosis: Chronic atrial fibrillation[ICD10: I48.2] Diagnosis: Major depressive disorder, recurrent, mild[ICD10: F33.0] Scarlett Spring MD, C CPT-4: 39955 04/20/2018 ([id number]) 72755 EST. P ATIENT, LEVEL IV Diagnosis: Essential (primary) hypertension[ICD10: I10] Diagnosis: Obstructive sleep apnea (adult) (pediatric)[ICD10: G47.33] Diagnosis: Chronic atrial fibrillation[ICD10: I48.2] Scarlett Spring MD, [facility] CPT-4: 88935 12/16/2017 ([id number]) 23564 EST. P ATIENT, LEVEL IV Diagnosis: Essential (primary) hypertension[ICD10: I10] Diagnosis: Chronic atrial fibrillation[ICD10: I48.2] Scarlett Spring MD, [facility] CPT-4: 42562 08/23/2017 ([id number]) 78240 EST. P ATIENT, LEVEL IV Diagnosis: Paroxysmal atrial fibrillation[ICD10: I48.0] Diagnosis: Essential (primary) hypertension[ICD10: I10] Scarlett Spring MD, [facility] CPT-4: 07406 02/02/2017 28894 EST. PATIENT, LEVEL III Diagnosis: Acute laryngopharyngitis[ICD10: J06.0] Diagnosis: Cough[ICD10: R05] Diagnosis: Pleurodynia[ICD10: R07.81] Diagnosis: Other dorsalgia[ICD10: M54.89] Kassandra Spring MD, [facility] CPT-4: 93339 11/26/2016 ([id number]) 71342 EST. P ATIENT, LEVEL IV Diagnosis: Essential (primary) hypertension[ICD10: I10] Diagnosis: Pain in left knee[ICD10: M25.562] Diagnosis: Low back pain[ICD10: M54.5] Diagnosis: Major depressive disorder, recurrent, moderate[ICD10: F33.1] Scarlett Spring MD, [facility] CPT-4: 11526 10/07/2016 ([id number]) 05666 EST. P ATIENT, LEVEL IV Diagnosis: Essential (primary) hypertension[ICD10: I10] Diagnosis: Rash and other nonspecific skin eruption[ICD10: R21] Diagnosis: Major depressive disorder, recurrent, mild[ICD10: F33.0] Scarlett Spring MD, C CPT-4: 91807 09/16/2016 26714 EST. PATIENT, LEVEL IV Diagnosis: Pain in left lower leg[ICD10: M79.662] Diagnosis: Pain in left knee[ICD10: M25.562] Kassandra Spring MD, [facility] CPT-4: 49631 09/07/2016 ([id number]) 90767 EST. P ATIENT, LEVEL IV Diagnosis: Encounter for immunization[ICD10: Z23] Diagnosis: Essential (primary) hypertension[ICD10: I10] Diagnosis: Mixed hyperlipidemia[ICD10: E78.2] Scarlett Spring MD, [facility] CPT- 4: 03346 04/08/2016 ([id number]) 75812 EST. P ATIENT, LEVEL III Diagnosis: Essential (primary) hypertension[ICD10: I10] Diagnosis: Shortness of breath[ICD10: R06.02] Scarlett Spring MD, [facility] CPT- 4: 47152 03/05/2016 ([id number]) 96900 EST. P ATIENT, LEVEL III Diagnosis: Chronic obstructive pulmonary disease, unspecified[ICD10: J44.9] Scarlett Spring MD, [facility] CPT-4: 46169 12/04/2015 ([id number]) 94108 EST. P ATIENT, LEVEL IV Diagnosis: Essential (primary) hypertension[ICD10: I10] Diagnosis: Allergic rhinitis due to pollen[ICD10: J30.1] Scarlett Spring MD, [facility] CPT-4: 11706 11/18/2015 ([id number]) 46854 EST. P ATIENT, LEVEL IV Diagnosis: Localized edema[ICD10: R60.0] Diagnosis: Dysuria[ICD10: R30.0] Diagnosis: Essential (primary) hypertension[ICD10: I10] Diagnosis: Nausea[ICD10: R11.0] Alis Spring MD, [facility] CPT-4: 38587 09/30/2015 ([id number]) 42395 EST. P ATIENT, LEVEL II Diagnosis: Methicillin susceptible Staphylococcus aureus infection as the cause of diseases classified elsewhere[ICD10: B95.61] Diagnosis: Methicillin susceptible Staphylococcus aureus infection, unspecified site[ICD10: A49.01] Alis Spring MD, [facility] CPT-4: 19337 09/09/2015 ([id number]) 94334 EST. P ATIENT, LEVEL III Diagnosis: Dermatophytosis, unspecified[ICD10: B35.9] Diagnosis: Rash and other nonspecific skin eruption[ICD10: R21] Scarlett Spring MD, [facility] CPT-4: 99596 08/28/2015 ([id number]) 32720 EST. P ATIENT, LEVEL IV Diagnosis: Essential (primary) hypertension[ICD10: I10] Diagnosis: Gastro-esophageal reflux disease without esophagitis[ICD10: K21.9] Diagnosis: Other dorsalgia[ICD10: M54.89] Scarlett Spring MD, [facility] CPT-4: 83344 07/09/2015 ([id number]) OFFICE [facility] - LEVEL 4 Diagnosis: ESSENTIAL HYPERTENSION[ICD9: 401.9] Diagnosis: Osteoporosis[ICD9: 733.00] Diagnosis: Back pain[ICD9: 724.5] Diagnosis: Insomnia[ICD9: 780.52] Diagnosis: ESOPHAGEAL REFLUX[ICD9: 530.81] Scarlett Spring MD, [facility] CPT-4: 05588 03/06/2015 Plan of Care Planned Activity Notes [...] Vitamin d def-check with labs today 01/12/2019 Patient Education: Patient Medication Summary Completed 01/12/2019 Patient Education: Back Pain Completed 01/12/2019 Care Plan: Comp Metabolic Pending 01/12/2019 Care Plan: Vitamin D 25 Oh Pending 01/12/2019 Appointment: Alis Muhammad WPtel: [address] [place] [address] (30 min) Complex 12/13/2018 Visit Plan: Edema [...] warmth, discharge. 12/06/2018 Appointment: Alis Muhammad WPtel: [address] [place] [address] (30 min) Complex 12/06/2018 Patient Education: Patient [...] as indicated 11/15/2018 Appointment: Alis Muhammad WPtel: [address] [place] [address] (15 min) Moderate 11/15/2018 Patient Education: Patient [...] ER 10/25/2018 Appointment: Alis Muhammad WPtel: [facility] [address] (15 min) Moderate 10/25/2018 Patient Education: [...] treatment 10/13/2018 Appointment: Alis Muhammad WPtel: [facility] [address] (15 min) Moderate 10/13/2018 Patient Education: Patient [...] Ua 09/15/2018 Appointment: Alis Muhammad WPtel: [phone] (30 min) Complex 09/15/2018 Patient Education: [...] improve 08/15/2018 Appointment: Alis Muhammad WPtel: [facility] [place] [address] (30 min) Complex 08/15/2018 Patient Education: Patient Medication Summary Completed 08/15/2018 Patient Education: Back Pain Completed 08/15/2018 Visit Plan: HTN-onofre induced cough-s top lisinopril -start losartan -monitor blood pressure and follow up in 2 weeks Low back pain-xray lumbar spine and refer for PT 08/01/2018 Appointment: Alis Muhammad WPtel: [address] [place], [place] [phone] (15 min) Moderate 08/01/2018 Patient Education: Patient Medication Summary Completed 08/01/2018 Patient Education: Back Pain Completed 08/01/2018 Care Plan: X-RAY EXAM L-S SPINE 2/3 S LOINC : 70096-9 Pending 08/01/2018 Visit Plan: Hypertension - well [...] today. 04/20/2018 Appointment[phone] [facility] (15 min) Moderate 04/20/2018 Patient Education: [...] care surrogate. 02/09/2018 Appointment: [facility]gu[phone] [facility] - Annual Wellness Visit 02/09/2018 [...] night. 12/16/2017 Appointment: Scarlett Spring WPtel: [facility] (15 min) Moderate 12/16/2017 Patient Education: [...] uncontrolled. 08/23/2017 Appointment: Scarlett Spring WPtel: [facility] (15 min) Moderate 08/23/2017 Patient Education: [...] cardiology 02/03/2017 Appointment: Kassandra Argueta WPtel: [facility] [place] [address] - Annual Wellness Visit 02/03/2017 Patient Education: [...] home. 02/02/2017 Appointment: Scarlett Spring WPtel: [facility] (15 min) Moderate 02/02/2017 Patient Education: Patient [...] not improve. 11/26/2016 Appointment: Kassandra Argueta WPtel: [facility] (30 min) Complex 11/26/2016 Patient Education: [...] symptoms. 10/07/2016 Appointment: Scarlett Spring WPtel: [facility] [place] (15 min) Moderate 10/07/2016 Patient Education: Patient Medication Summary Completed 10/07/2016 Patient Education: Obesity Completed 10/07/2016 Patient Education: Hypertension Completed 10/07/2016 Care Plan: VASCULAR STUDY Pending 10/04/2016 Care Plan: X-RAY EXAM OF KNEE [facility] : 42067-6 Pending 10/04/2016 Visit Plan: Hypertension - well [...] paroxetine 09/16/2016 Appointment: Scarlett Spring WPtel: [facility] [place] (15 min) Moderate 09/16/2016 [...] improve. 09/07/2016 Appointment: Kass[facility] Argueta [facility]Ptel[phone] [facility] [place] (10 min) Simple 09/07/2016 Patient Education: [...] order 04/08/2016 Appointment: Scarlett Spring WPtel[facility] [phone] [facility] [place] (15 min) Moderate 04/08/2016 Patient [...] times daily x 10 days. 03/05/2016 Appointment: Scralett Spring WPtel[facility] [address] [facility] [place] (15 min) Moderate 03/05/2016 Patient [...] patient 12/04/2015 Appointment: Scarlett Spring WPtel: [address] [facility] (15 min) Moderate 12/04/2015 Patient Education: [...] spray. 11/18/2015 Appointment: Scarlett Spring WPtel: [facility]66[facility] (15 min) Moderate 11/18/2015 Patient Education: Patient Medication Summary Completed 11/18/2015 Patient Education: Obesity Completed 11/18/2015 Patient Education: Hypertension Completed 11/18/2015 Appointment: Scarlett Spring WPtel: [facility] (15 min) Moderate 11/07/2015 Visit Plan: [...] Visit Plan: MSSA of groin and under sgysanu-spldztcdg-vnyods bactrim and call if rash does not completely resolve 09/09/2015 Appointment: (15 min) Moderate 09/09/2015 Patient Education: Patient Medication Summary Completed 09/09/2015 Visit Plan: Rash - dermatophytosis - recommended oral diflucan, topical nystatin cream, rtc in 10 days to assure healing. check of culture - may need to consider treatment with antibiotic depending on the groin culture report. 08/28/2015 Appointment: Scarlett Spring WPtel: [facility] (15 min) Moderate 08/28/2015 Patient Education: Patient [...] not improving. 07/09/2015 Appointment: Scarlett Spring WPtel: [facility] (15 min) Moderate 07/09/2015 Patient Education: [...] symptoms are not improving. 03/06/2015 Appointment: Scarlett Srping WPtel: [facility] [place] ([place] New Patient 03/06/2015 Patient [...] will find out if anyone comes to [place] check UA start probiotic daily . Hypertension [...] does not improve. . Medicare Exam - to day we [...] - Defer to cardiology . Hypertension - wel l controlled - [...]
--- OUTSIDE RECORDS SUMMARY | 2020-01-23 14:16 | XMS REPORT | CCD ---
Author Author Jeannine Spring Organization Scarlett Spring MD, [facility] Address [address] [place] [address] Phone Care Team Providers Care Payroll Administrator Name Role Phone PP Unavailable CCM Unavailable Summary Purpose Interface Exchange Insurance Providers Payer name Policy type / Coverage type Covered alliance party ID Effective Begin Date Effective End Date WPS Medicare Part B Medicare Part B [id number] Unknown [employer] Medicare Part B [id number] Unkn own Family history Mother Diagnosis Age At Onset Hypertension Unknown Heart Attack Unknown Brother Diagnosis Age At Onset Heart disease Unknown Runs in the family Diagnosis Age At Onset Heart disease Unknown Daughter Diagnosis Age At Onset Heart Attack Unknown Hyperlipidemia Unknown Hypertension Unknown Social History Social History Element Codes Description Effective Dates Number of children Unknown 2 daughter lives in [place], son - does not have contact 09/16/[address]: 7792163 Quit over 10 years ago 1990 - previously smoked 2ppd x 25 years. 11/18/2015 Marital status Unknown W idowed in 201003/06/2015 Employment Unknown Retir ed was a [employer] 03/06/2015 Allergies, Adverse Reactions, Alerts Substance Reaction Codes Entered Date Inactivated Date Status * NO KNOWN FOOD MYRNA RGIES Unknown 03/06/2015 No Inactive Date Active Iodine RxNorm: 5933 03/06/2015 No Inactive Date Active Penicillin Unknown 03/06/2015 No In active Date Active Past Medical History Illness Codes Condition Status Onset Date Resolved Date Cellulitis of abdomi nal wall ICD-9: 682.2 ICD-10: L03.311 Active 12/06/2018 Unknown Dysuria ICD-9: 788.1 ICD-10: R30.0 Active 09/29/2015 Unknown Localized edema ICD-9: 782.3 ICD-10: R60.0 Active 09/29/2015 Unknown Essential (primary) hypertension ICD-9: 401.1 ICD-10: I10 Active 12/16/2017 Unknown Major depressive dis order, recurrent, moderate ICD-9: 296.32 ICD-10: F33.1 Active 10/07/2016 Unknown Chest pain, unspecified ICD-9: 786.50 ICD-10: R07.9 Active 10/25/2018 Unknown Diarrhea, unspecified ICD-9: 787.91 ICD-10: R19.7 Active 10/25/2018 Unknown Eructation ICD-9: 787.3 ICD-10: R14.2 Active 10/25/2018 Unknown Nausea ICD-9: 787.02 ICD-10: R11.0 Active 09/29/2015 Unknown Low back pain ICD-9: 724.2 ICD-10: M54.5 Active 10/07/2016 Unknown Essential (primary) hypertension ICD-9: 401.9 ICD-10: I10 Active 03/05/2015 Unknown Cough ICD-9: 786.2 ICD-10: R05 Active 11/26/2016 Unknown Chronic atrial fibri llation ICD-9: 427.31 ICD-10: I48.2 Active 08/23/2017 Unknown Encounter for immuni zation ICD-9: V03.9 [...] Condition Codes Effectiv e Dates Condition Status Cellulitis of abdomi nal wall ICD-9: 682.2 ICD-10: L03.311 12/06/2018 Active Dysuria ICD-9: 788.1 ICD-10: R30.0 09/29/2015 Active Localized edema ICD-9: 782.3 ICD-10: R60.0 09/29/2015 Active Essential (primary) hypertension ICD-9: 401.1 ICD-10: I10 12/16/2017 Active Major depressive dis order, recurrent, moderate ICD-9: 296.32 ICD-10: F33.1 10/07/2016 Active Chest pain, unspecified ICD-9: 786.50 ICD-10: R07.9 10/25/2018 Active Diarrhea, unspecified ICD-9: 787.91 ICD-10: R19.7 10/25/2018 Active Eructation ICD-9: 787.3 ICD-10: R14.2 10/25/2018 Active Nausea ICD-9: 787.02 ICD-10: R11.0 09/29/2015 Active Low back pain ICD-9: 724.2 ICD-10: M54.5 10/07/2016 Active Essential (primary) hypertension ICD-9: 401.9 ICD-10: I10 03/05/2015 Active Cough ICD-9: 786.2 ICD-10: R05 11/26/2016 Active Chronic atrial fibri llation ICD-9: 427.31 ICD-10: I48.2 08/23/2017 Active Encounter for immuni zation ICD-9: V03.9 [...] Fill Instructions Ambien 10 mg tablet RxNorm: 049256 Tablet(s) TAKE ONE TABLET BY MOUTH AT BE DTIME NEEDED 12/21/2018 04/19/2019 Active mupirocin 2 % topica l ointment RxNorm: 267292 1 Application TOP BID 12/06/2018 12/19/2018 Inactive doxycycline hyclate 100 mg tablet RxNorm: 8618005 1 Tablet(s) PO BID 11/21/2018 11/27/2018 Inactive can exchange for capsule if cheaper doxycycline hyclate 100 mg tablet RxNorm: 0878532 1 Tablet(s) PO BID 11/21/2018 11/20/2018 Inactive simethicone 125 mg c hewable tablet RxNorm: 537351 1 Tablet(s) PO qid pr n 10/25/2018 No Stop Date Active promethazine 25 mg t ablet RxNorm: 139867 1 Tablet(s) PO Q6 PRN 10/25/2018 No Stop Date Active paroxetine 40 mg tablet RxNorm: 7910175 1 Tablet(s) PO daily 10/13/2018 04/10/2019 Active valsartan 160 mg tablet RxNorm: 958004 1 Tablet(s) PO daily 10/13/2018 04/10/2019 Active terazosin 5 mg capsule RxNorm: 410515 TAKE ONE CAPSULE BY MOUTH DAILY 09/23/2018 02/19/2019 Ac tive trazodone 50 mg tablet RxNorm: 175010 TAKE ONE TABLET BY MOUTH DAILY 09/23/2018 03/21/2019 Ac tive Ambien 10 mg tablet RxNorm: 640760 TAKE ONE TABLET BY MOUTH AT BEDTIME N EEDED 09/23/2018 11/20/2018 Inactive losartan 50 mg tablet RxNorm: 541217 1 Tablet(s) PO daily 09/15/2018 10/12/2018 Inactive omeprazole 20 mg cap marina,delayed release RxNorm: 315866 TAKE ONE CAPSULE BY M OUTH EVERY NIGHT AT BEDTIME 09/12/2018 03/10/2019 Active Keflex 500 mg capsule RxNorm: 419179 1 Capsule(s) PO TID 08/18/2018 08/17/2018 Inactive Keflex 500 mg capsule RxNorm: 060647 1 Capsule(s) PO TID 08/18/2018 08/24/2018 Inactive take probiotic while on abx paroxetine 20 mg tablet RxNorm: 6421573 TAKE ONE TABLET BY MOUTH DAILY 08/12/2018 10/12/2018 In active losartan 25 mg tablet RxNorm: 864621 1 Tablet(s) PO daily 08/01/2018 09/14/2018 Inactive losartan 25 mg tablet RxNorm: 323396 1 Tablet(s) PO daily 08/01/2018 10/12/2018 Inactive trazodone 50 mg tablet RxNorm: 147257 TAKE ONE TABLET BY MOUTH DAILY 07/25/2018 09/22/2018 In active Ambien 10 mg tablet RxNorm: 147938 Tablet(s) TAKE ONE TABLET BY MOUTH AT BE DTIME 06/24/2018 09/23/2018 Inactive trazodone 50 mg tablet RxNorm: 760562 TAKE ONE TABLET BY MOUTH DAILY 04/25/2018 07/23/2018 In active Ambien 10 mg tablet RxNorm: 588968 Tablet(s) TAKE ONE TABLET BY MOUTH AT BE DTIME 03/23/2018 06/19/2018 Inactive terazosin 5 mg capsule RxNorm: 973731 TAKE ONE CAPSULE BY MOUTH DAILY 03/14/2018 09/09/2018 In active Ambien 10 mg tablet RxNorm: 668476 Tablet(s) TAKE ONE TABLET BY MOUTH AT BE DTIME 01/18/2018 09/14/2018 Inactive trazodone 50 mg tablet RxNorm: 779596 TAKE ONE TABLET BY MOUTH ONCE DAILY 01/10/2018 03/22/2018 In active trazodone 50 mg tablet RxNorm: 248098 Tablet(s) TAKE ONE TABLET BY MOUTH ONCE DAILY 01/10/2018 04/24/2018 Inactive Ambien 10 mg tablet RxNorm: 118122 Tablet(s) TAKE ONE TABLET BY MOUTH AT BE DTIME 10/22/2017 01/17/2018 Inactive trazodone 50 mg tablet RxNorm: 961431 TAKE ONE TABLET BY MOUTH ONCE DAILY 10/18/2017 01/09/2018 In active omeprazole 20 mg cap marina,delayed release RxNorm: 220674 TAKE ONE CAPSULE BY M OUTH ONCE DAILY AT BEDTIME 08/27/2017 09/11/2018 Inactive trazodone 50 mg tablet RxNorm: 245304 TAKE ONE TABLET BY MOUTH ONCE DAILY 08/18/2017 10/17/2017 In active Ambien 10 mg tablet RxNorm: 841912 Tablet(s) TAKE ONE TABLET BY MOUTH AT BE DTIME 08/18/2017 03/22/2018 Inactive paroxetine 20 mg tablet RxNorm: 3062954 TAKE ONE TABLET BY MOUTH ONCE DAILY 07/27/2017 08/11/2018 In active Ambien 10 mg tablet RxNorm: 337739 Tablet(s) TAKE ONE TABLET BY MOUTH AT BE DTISC 06/23/2017 03/22/2018 Inactive omeprazole 20 mg cap marina,delayed release RxNorm: 178785 TAKE ONE CAPSULE BY M OUTH ONCE DAILY AT BEDTIME 04/23/2017 08/20/2017 Inactive trazodone 50 mg tablet RxNorm: 867635 TAKE ONE TABLET BY MOUTH ONCE DAILY 04/13/2017 08/10/2017 In active terazosin 5 mg capsule RxNorm: 996581 Capsule(s) TAKE ONE CAPSULE BY MOUTH [facility] 04/08/2017 03/03/2018 In active Ambien 10 mg tablet RxNorm: 307645 Tablet(s) TAKE ONE TABLET BY MOUTH AT BE [facility] 02/17/2017 03/22/2018 Inactive Tylenol-Codeine #3 3 00 mg-30 mg tablet RxNorm: 882027 1 Tablet(s) PO QID as needed 02/02/2017 11/14/2018 In active metoprolol succinate ER 50 mg tablet,extended release 24 hr RxNorm: 436243 TAKE ONE TABLET BY MOUTH ONCE DAILY 12/23/2016 02/02/2017 Inactive Zithromax Z-Ted 250 mg tablet RxNorm: 151626 1 Tablet(s) PO UD 11/26/2016 02/16/2017 Inactive trazodone 50 mg tablet RxNorm: 784904 TAKE ONE TABLET BY MOUTH ONCE DAILY 11/12/2016 03/11/2017 In active Ambien 10 mg tablet RxNorm: 869869 Tablet(s) TAKE ONE TABLET BY MOUTH AT [facility] 10/22/2016 02/15/2017 Inactive paroxetine 20 mg tablet RxNorm: 9748588 1 Tablet(s) PO daily TAKE ONE TABLET BY MOUTH DAILY 09/16/2016 06/12/2017 Inactive meloxicam 7.5 mg tablet RxNorm: 293870 1 Tablet(s) PO daily 09/16/2016 11/14/2016 Inactive Protonix 40 mg table t,delayed release RxNorm: 472236 1 Tablet(s) PO daily 09/16/2016 08/22/2017 In active sucralfate 1 gram ta blet RxNorm: 583185 1 Tablet(s) PO TID 09/16/2016 08/22/2017 Inactive Ambien 10 mg tablet RxNorm: 956019 Tablet(s) TAKE ONE TABLET BY MOUTH AT BE DTIME 08/24/2016 03/22/2018 Inactive trazodone 50 mg tablet RxNorm: 583703 Tablet(s) TAKE ONE TABLET BY MOUTH DAILY 07/29/2016 11/11/2016 In active Ambien 10 mg tablet RxNorm: 016262 TAKE ONE TABLET BY MOUTH AT BEDTIME 06/23/2016 03/22/2018 In active Ambien 10 mg tablet RxNorm: 696594 Tablet(s) TAKE ONE TABLET BY MOUTH EVERY NIGHT AT BEDTIME 06/22/2016 06/23/2016 Inactive Lasix 40 mg tablet RxNorm: 920022 1 Tablet(s) PO daily as needed for swell ing 04/03/2016 09/15/2016 In active potassium chloride E R 20 mEq tablet,extended release RxNorm: 230052 1 Tablet(s) PO daily for swelling take with lasix as needed 04/03/2016 09/15/2016 Inactive Ambien 10 mg tablet RxNorm: 257310 Tablet(s) TAKE ONE TABLET BY MOUTH EVERY NIGHT AT BEDTIME 04/03/2016 03/22/2018 Inactive omeprazole 20 mg cap marina,delayed release RxNorm: 609636 TAKE ONE CAPSULE BY M OUTH EVERY NIGHT AT BEDTIME 03/31/2016 09/15/2016 Inactive paroxetine 20 mg tablet RxNorm: 3792069 TAKE ONE TABLET BY MOUTH DAILY 03/31/2016 09/15/2016 In active trazodone 50 mg tablet RxNorm: 273947 TAKE ONE TABLET BY MOUTH DAILY 03/20/2016 07/28/2016 In active terazosin 5 mg capsule RxNorm: 450650 TAKE ONE CAPSULE BY MOUTH DAILY 03/06/2016 10/06/2016 In active Ambien 10 mg tablet RxNorm: 609893 Tablet(s) TAKE ONE TABLET BY MOUTH EVERY NIGHT AT BEDTIME 01/17/2016 04/02/2016 Inactive loratadine 10 mg tablet RxNorm: 710995 1 Tablet(s) PO daily 01/15/2016 09/15/2016 Inactive mupirocin 2 % topica l ointment RxNorm: 481264 1 Application TOP TID 11/18/2015 12/01/2015 Inactive metoprolol succinate ER 50 mg tablet,extended release 24 hr RxNorm: 190769 1 Tablet(s) PO daily 11/18/2015 11/11/2016 Inactive loratadine 10 mg tablet RxNorm: 014288 1 Tablet(s) PO daily 11/18/2015 01/14/2016 Inactive Lasix 40 mg tablet RxNorm: 315249 1 Tablet(s) PO daily as needed for swell ing 10/30/2015 11/28/2015 In active potassium chloride E R 20 mEq tablet,extended release RxNorm: 122151 1 Tablet(s) PO daily for swelling take with lasix as needed 10/30/2015 11/28/2015 Inactive Tylenol-Codeine #3 3 00 mg-30 mg tablet RxNorm: 848910 1 Tablet(s) PO QID as needed 10/25/2015 02/01/2017 In active Ambien 10 mg tablet RxNorm: 011836 Tablet(s) TAKE ONE TABLET BY MOUTH EVERY NIGHT AT BEDTIME 10/18/2015 03/22/2018 Inactive Diflucan 150 mg tablet RxNorm: 343228 1 Tablet(s) PO daily 10/01/2015 12/03/2015 Inactive Lasix 20 mg tablet RxNorm: 491138 1 Tablet(s) PO PRN fror swelling 09/27/2015 10/29/2015 In active potassium chloride E R 10 mEq capsule,extended release RxNorm: 890594 1 Capsule(s) PO PRN for swelling take with lasix 09/27/2015 10/29/2015 Inactive Bactrim DS 800 mg-16 0 mg tablet RxNorm: 838188 1 Tablet(s) PO BID 09/02/2015 09/11/2015 Inactive Bactrim DS 800 mg-16 0 mg tablet RxNorm: 571044 1 Tablet(s) PO BID 09/02/2015 09/01/2015 Inactive nystatin 100,000 uni t/gram topical cream RxNorm: 706540 1 Gram(s) TOP TID 08/28/2015 09/26/2015 In active Diflucan 150 mg tablet RxNorm: 615760 1 Tablet(s) PO daily 08/28/2015 09/06/2015 Inactive betamethasone diprop ionate 0.05 % topical ointment RxNorm: 076787 1 Application TOP TID to affected area 08/02/2015 02/01/2017 Inactive nystatin 100,000 uni t/gram topical powder RxNorm: 837211 1 Gram(s) TOP QID 07/09/2015 08/01/2015 In active Ambien 10 mg tablet RxNorm: 042357 1 Tablet(s) PO QHS 06/19/2015 06/18/2015 Inactive Ambien 10 mg tablet RxNorm: 595378 TAKE ONE TABLET BY MOUTH EVERY NIGHT AT BEDTIME 06/19/2015 09/16/2015 Inactive Vitamin D2 50,000 un it capsule RxNorm: 705881 1 Capsule(s) PO QW 03/07/2015 03/06/2015 Inactive Vitamin D2 50,000 un it capsule RxNorm: 724932 1 Capsule(s) PO QW 03/07/2015 05/05/2015 Inactive terazosin 5 mg capsule RxNorm: 452818 1 Capsule(s) PO daily 03/06/2015 02/28/2016 Inactive [SAVINGS FOR NON-COVERED DRUGS -- BIN:00 2667, PCN: ASPROD1, Group: XXXXX, ID# [id number], Questions: . THIS IS NOT INSURANCE.] trazodone 50 mg tablet RxNorm: 401487 1 Tablet(s) PO daily 03/06/2015 02/28/2016 Inactive paroxetine 20 mg tablet RxNorm: 9044381 1 Tablet(s) PO daily 03/06/2015 02/28/2016 Inactive Tylenol-Codeine #3 3 00 mg-30 mg tablet RxNorm: 211622 1 Tablet(s) PO QID as needed 03/06/2015 07/02/2015 In active amlodipine 10 mg tablet RxNorm: 430324 1 Tablet(s) PO daily 03/06/2015 11/17/2015 Inactive metoprolol succinate ER 25 mg tablet,extended release 24 hr RxNorm: 083465 1 Tablet(s) PO daily 03/06/2015 11/17/2015 Inactive omeprazole 20 mg cap marina,delayed release RxNorm: 223549 1 Capsule(s) PO QHS 03/06/2015 02/28/2016 In active omeprazole 20 mg cap marina,delayed release RxNorm: 550646 1 Capsule(s) PO QHS 01/31/2015 01/30/2015 In active omeprazole 20 mg cap marina,delayed release RxNorm: 010024 1 Capsule(s) PO QHS 01/31/2015 01/30/2015 In active omeprazole 20 mg cap marina,delayed release RxNorm: 738687 1 Capsule(s) PO QHS 01/31/2015 03/05/2015 In active Ambien 10 mg tablet RxNorm: 457729 1 Tablet(s) PO QHS 12/25/2014 04/21/2015 Inactive paroxetine 20 mg tablet RxNorm: 452746 1 Tablet(s) PO daily 12/25/2014 12/24/2014 Inactive Ambien 10 mg tablet RxNorm: 166758 1 Tablet(s) PO QHS 12/25/2014 12/24/2014 Inactive paroxetine 20 mg tablet RxNorm: 037680 1 Tablet(s) PO daily 12/25/2014 03/05/2015 Inactive terazosin 5 mg capsule RxNorm: 318720 1 Capsule(s) PO daily 11/23/2014 03/05/2015 Inactive [SAVINGS FOR NON-COVERED DRUGS -- BIN:00 3585, PCN: ASPROD1, Group: XXXXX, ID# [id number], Questions: . THIS IS NOT INSURANCE.] terazosin 5 mg capsule RxNorm: 631521 1 Capsule(s) PO daily 11/23/2014 11/22/2014 Inactive Lasix 20 mg tablet RxNorm: 518634 1 Tablet(s) PO daily No Start Date Active K-Dur 10 mEq tablet, extended release RxNorm: 380971 1 Tablet(s) PO daily No Start Date Active hydrochlorothiazide 25 mg tablet RxNorm: 806136 1 Tablet(s) PO daily No Start Date Active Vitamin D3 2,000 uni t tablet RxNorm: 990100 1 Tablet(s) PO daily No Start Date Active amiodarone 200 mg ta blet RxNorm: 998171 1 Tablet(s) PO BID No Start Date Active Zetia 10 mg tablet RxNorm: 836504 1 Tablet(s) PO daily No Start Date Active Lipitor 80 mg tablet RxNorm: 574084 1/2 Tablet(s) PO daily No Start Date Active Coumadin 4 mg tablet RxNorm: 031061 1 Tablet(s) PO daily No Start Date Active metoprolol succinate ER 25 mg tablet,extended release 24 hr RxNorm: 830511 1 Tablet(s) PO daily No Start Date 03/05/2015 Inactive Entresto 49 mg-51 mg tablet RxNorm: 7783488 1 Tablet(s) PO BID No Start Date 04/19/2018 Inactive sotalol 80 mg tablet RxNorm: 8119476 1 Tablet(s) PO BID No Start Date 04/19/2018 Inactive betamethasone diprop ionate 0.05 % topical ointment RxNorm: 638902 1 Application TOP TID to affected area No Start Date 08/01/2015 Inactive trazodone 50 mg tablet RxNorm: 645480 1 Tablet(s) PO daily No Start Date 03/05/2015 Inactive potassium chloride E R 10 mEq capsule,extended release RxNorm: 675323 1 Capsule(s) PO PRN for swelling take with lasix No Start Date 09/26/2015 Inactive Eliquis 5 mg tablet RxNorm: 2618905 1 Tablet(s) PO BID No Start Date 09/14/2018 Inactive amlodipine 10 mg tablet RxNorm: 652921 1 Tablet(s) PO daily No Start Date 03/05/2015 Inactive isosorbide mononitra te ER 30 mg tablet,extended release 24 hr RxNorm: 535350 1 Tablet(s) PO daily No Start Date 08/22/2017 Inactive aspirin 81 mg tablet ,delayed release RxNorm: 888189 1 Tablet(s) PO daily No Start Date 02/02/2017 Inactive Lasix 20 mg tablet RxNorm: 787794 1 Tablet(s) PO PRN fror swelling No Start Date 09/26/2015 Inactive lisinopril 5 mg tablet RxNorm: 856314 1 Tablet(s) PO daily No Start Date 07/31/2018 Inactive Crestor 40 mg tablet RxNorm: 735714 1 Tablet(s) PO daily No Start Date 09/15/2016 Inactive metoprolol succinate ER 100 mg tablet,extended release 24 hr RxNorm: 689951 1 Tablet(s) PO daily No Start Date 12/15/2017 Inactive Medication Administered No Medication Administered data Immunizations Vaccine Codes Date Status Influenza CVX: 141 04/20 completed Influenza CVX: 141 04/08 completed Pneumococcal (Adult) CVX: 133 04/08/2016 completed Assessments Condition Codes Effectiv e Dates Dysuria ICD-10: R30.0 ICD-9: 788.1 12/06/2018 Localized edema ICD-10: R60.0 ICD-9: 782.3 12/06/2018 Cellulitis of abdominal wall ICD-10: L03.311 ICD-9: 682.2 12/06/2018 Major depressive disorder, recurrent, moderate ICD-10: F33.1 ICD-9: 296.32 11/15/2018 Essential (primary) hypertension ICD -10: I10 ICD-9: 401.1 11/15/2018 Diarrhea, unspecified ICD-10: R19.7 ICD-9: 787.91 10/25/2018 Eructation ICD-10: R14.2 ICD-9: 787.3 10/25/2018 Nausea ICD-10: R11.0 ICD-9: 787.02 10/25/2018 Chest pain, unspecified ICD-10: R07. 9 ICD-9: 786.50 10/25/2018 Low back pain ICD-10: M54.5 ICD-9: 724.2 10/13/2018 Essential (primary) hypertension ICD -10: I10 ICD-9: 401.9 09/15/2018 Cough ICD-10: R05 ICD-9: 786.2 08/01/2018 Major depressive disorder, recurrent, mild ICD-10: F33.0 ICD-9: 296.31 04/20/2018 Chronic atrial fibrillation ICD-10: I48.2 ICD-9: 427.31 04/20/2018 Encounter for immunization ICD-10: Z 23 [...] Reason For Visit Effective Dates Notes edema 12/06/2018 hypertension 11/15/2018 diarrhea 10/25/2018 hypertension [...] Observation Code Item Item Code Result Date Urine Culture Ucult Comp lete >100,000 col/ml aerobic grow th sent to ref lab 11/16/2018 Culture Urine [id number] URI NE CULTURE SEE NOTES 08/22/2018 Culture Urine [id number] Con tinued Results 08/22/2018 Urine Culture Ucult Comp lete >100,000 col/ml aerobic grow th sent to ref lab 08/19/2018 Comp Metabolic Aey795 NA 140 mEq/L 08/01/2018 Comp Metabolic Ujn786 K 4.2 mEq/L 08/01/2018 Comp Metabolic Icv170 CL 102 mEq/L 08/01/2018 Comp Metabolic Czn076 CO2 27.0 mEq/L 08/01/2018 Comp Metabolic Rtj111 AN ION GAP 15 08/01/2018 Comp Metabolic Vsm222 GL UCOSE 107 mg/dL 08/01/2018 Comp Metabolic Fyw105 Cr eat 1.0 mg/dL 08/01/2018 Comp Metabolic Qdq655 eG FR 58 ml/min/1.73m2 08/01 Comp Metabolic Thv263 BUN 10 mg/dL 08/01/2018 Comp Metabolic Bob295 B/ C Ratio 10.0 Ratio 08/01/2018 Comp Metabolic Bvm749 CA LCIUM 8.9 mg/dL 08/01/2018 Comp Metabolic Akf350 AL K PHOS 68 U/L 08/01/2018 Comp Metabolic Vrk413 T(SGOT) 18 U/L 08/01/2018 Comp Metabolic Zty976 AL T(SGPT) 14 U/L 08/01/2018 Comp Metabolic Fer998 BI LI T 0.5 mg/dL 08/01/2018 Comp Metabolic Rgf030 AL BUMIN 4.0 g/dL 08/01/2018 Comp Metabolic Jro082 TP RO 6.3 g/dL 08/01/2018 Comp Metabolic Fud928 GL OB 2.3 g/dL 08/01/2018 Comp Metabolic Jme663 A/ G Ratio 1.7 Ratio 08/01/2018 Comp Metabolic Qlt153 Os mo 279 mOsmo 08/01/2018 Tsh Ord6 [...] 27.3 pg 08/01/2018 Cbc With Differential Ord2 [place]% 9.8 % 08/01/2018 Cbc With Differential Ord2 [...] 0.79 K/ul 08/01/2018 Cbc With Differential Ord2 [place] ABS# 0.4 K/ul 08/01/2018 Cbc With Differential Ord2 Eos ABS# 0.1 K/ul 08/01/2018 Cbc With Differential Ord2 Baso ABS# 0.0 K/ul 08/01/2018 Lipid Ord30 CHOL 234 mg/dL 08/01/2018 Lipid Ord30 HDL 69.0 mg/dl 08/01/2018 Lipid Ord30 TRIG 57 mg/dL 08/01/2018 Lipid Ord30 LDL 154 mg/dL 08/01/2018 Lipid Ord30 C/HDL 3.4 Ratio 08/01/2018 Comp Metabolic Pif899 NA 137 mEq/L 09/30/2015 Comp Metabolic Kvj448 K 4.5 mEq/L 09/30/2015 Comp Metabolic Tcv980 CL 102 mEq/L 09/30/2015 Comp Metabolic Rzv460 CO2 26.0 mEq/L 09/30/2015 Comp Metabolic Dlc270 AN ION GAP 14 09/30/2015 Comp Metabolic Udp161 GL UCOSE 89 mg/dL 09/30/2015 Comp Metabolic Yjn702 Cr eat 0.8 mg/dL 09/30/2015 Comp Metabolic Jme082 eG FR 79 ml/min/1.73m2 09/29 Comp Metabolic Ofd808 BUN 14 mg/dL 09/30/2015 Comp Metabolic Efb159 B/ C Ratio 18.2 Ratio 09/30/2015 Comp Metabolic Qja349 CA LCIUM 8.9 mg/dL 09/30/2015 Comp Metabolic Wwx874 AL K PHOS 65 U/L 09/30/2015 Comp Metabolic Hil240 T(SGOT) 26 U/L 09/30/2015 Comp Metabolic Yap208 AL T(SGPT) 18 U/L 09/30/2015 Comp Metabolic Nmi904 BI LI T 0.6 mg/dL 09/30/2015 Comp Metabolic Sfs118 AL BUMIN 3.8 g/dL 09/30/2015 Comp Metabolic Bqv192 TP RO 6.6 g/dL 09/30/2015 Comp Metabolic Cnr549 GL OB 2.8 g/dL 09/30/2015 Comp Metabolic Xxy484 A/ G Ratio 1.4 Ratio 09/30/2015 Comp Metabolic Uzg233 Os mo 274 mOsmo 09/30/2015 Cbc With [...] 27.7 pg 09/30/2015 Cbc With Differential Ord2 [place]% 10.7 % 09/30/2015 Cbc With Differential Ord2 [...] 1.10 K/ul 09/30/2015 Cbc With Differential Ord2 [place] ABS# 0.6 K/ul 09/30/2015 Cbc With Differential Ord2 Eos ABS# 0.2 K/ul 09/30/2015 Cbc With Differential Ord2 Baso ABS# 0.0 K/ul 09/30/2015 Cbc With Differential Ord2 New Analyzer Notice Please note new ref ranges s tarting 08-07-2015 due to implemntation of new five part differential hematolgy analyzer. 09/30/2015 Tsh Ord6 hTSH II 1.05 uIU/mL 03/06/2015 Comp Metabolic Mba339 NA 137 mEq/L 03/06/2015 Comp Metabolic Cuw321 K 4.3 mEq/L 03/06/2015 Comp Metabolic Xfg884 CL 104 mEq/L 03/06/2015 Comp Metabolic Hdk607 CO2 28.0 mEq/L 03/06/2015 Comp Metabolic Yhr293 AN ION GAP 9 03/06/2015 Comp Metabolic Igt240 GL UCOSE 93 mg/dL 03/06/2015 Comp Metabolic Ckq903 Cr eat 0.8 mg/dL 03/06/2015 Comp Metabolic Znn461 eG FR 81 ml/min/1.73m2 03/06 Comp Metabolic Rrq197 BUN 12 mg/dL 03/06/2015 Comp Metabolic Azv858 B/ C Ratio 16.0 Ratio 03/06/2015 Comp Metabolic Tup896 CA LCIUM 8.9 mg/dL 03/06/2015 Comp Metabolic Mpv221 AL K PHOS 56 U/L 03/06/2015 Comp Metabolic Ngu706 T(SGOT) 22 U/L 03/06/2015 Comp Metabolic Nsm495 AL T(SGPT) 15 U/L 03/06/2015 Comp Metabolic Vki741 BI LI T 0.4 mg/dL 03/06/2015 Comp Metabolic Akp482 AL BUMIN 4.0 g/dL 03/06/2015 Comp Metabolic Dpz951 TP RO 6.5 g/dL 03/06/2015 Comp Metabolic Yqu673 GL OB 2.5 g/dL 03/06/2015 Comp Metabolic Ybb192 A/ G Ratio 1.6 Ratio 03/06/2015 Comp Metabolic Djx129 Os mo 273 mOsmo 03/06/2015 Vitamin D 25 Oh Bom3902 VITAMIN D, 25 HYDROXY 28.14 ng/mL 03/06/2015 [...] System Result Effective Dates Constitutional recent illness 12/06/2018 Constitutional No anorexia [...] hygiene 10/13/2018 None Full Exam - General 1995 Eyes conjunctiva/eyelids Overall: conjunctiva clear 10/13/2018 None Full Exam - General 1994 Eyes conjunctiva/eyelids Overall: cornea clear 10/13/2018 None Full Exam - General 1995 Eyes conjunctiva/eyelids Overall: eyelids normal 10/13/2018 None [...] lips 10/13/2018 None Full Exam - General 1995 Ears/Nose/Throat lips/teeth/gingiva Overall: normal dentition 10/13/2018 None [...] benign 10/13/2018 None Full Exam - General 1995 Musculoskeletal [...] age 0108/15/2018 None Full Exam - General 1995 Constitutional general appearance Overall: well developed 08/15/2018 [...] atraumatic 08/01/2018 None Full Exam - General 1995 [...] Date URINALYSIS NONAUTO W /O SCOPE CPT-4: 35465 12/06/2018 URINALYSIS NONAUTO W /O SCOPE CPT-4: 48281 11/15/2018 URINALYSIS NONAUTO W /O SCOPE CPT-4: 64250 08/18/2018 ADMIN INFLUENZA VIRU S VAC CPT-4: G0008 04/20/2018 FLU VACC PRSV FREE I NC ANTIG Formatting Model/CDA Sections, Assigned to/Amparo Mims CPT-4: 13579Fabhcpb 04/20/2018 PPPS, SUBSEQ VISIT CPT- 4: G0439 02/09/2018 PPPS, SUBSEQ VISIT CPT- 4: G0439 02/03/2017 ADMIN INFLUENZA VIRU S VAC CPT-4: G0008 04/08/2016 ADMIN PNEUMOCOCCAL V ACCINE SNOMED CT: [id number] CPT-4: G0009 04/08/2016 PNEUMOCOCCAL VACC [address]: [id number] CPT-4: 78709 04/08/2016 FLU VACC PRSV FREE I NC ANTIG CPT-4: 19510 04/08/2016 Vital Signs Date Vital 12/06/2018 Blood Pressure 1: 118/70 Code: 8480-6 BMI: 41.5 Code: 11996-9 Heart Rate 1: 97 bpm Height: 5'7" SpO2: 96% Weight: 265 lbs 11/15/2018 Blood Pressure 1: 144/76 Code: 8480-6 BMI: 42.3 Code: 93145-1 Heart Rate 1: 82 bpm Height: 5'7" SpO2: 96% Weight: 270 lbs 10/25/2018 Blood Pressure 1: 128/80 Code: 8480-6 BMI: 42.0 Code: 77125-0 Heart Rate 1: 93 bpm Height: 5'7" SpO2: 95% Weight: 268 lbs 10/13/2018 Blood Pressure 1: 162/76 Code: 8480-6 BMI: 42.0 Code: 62870-1 Heart Rate 1: 71 bpm Height: 5'7" SpO2: 96% Weight: 268 lbs 09/15/2018 Blood Pressure 1: 154/86 Code: 8480-6 BMI: 42.9 Code: 26763-6 Heart Rate 1: 88 bpm Height: 5'7" SpO2: 94% Weight: 274 lbs 08/15/2018 Blood Pressure 1: 140/90 Code: 8480-6 BMI: 40.7 Code: 86053-9 Heart Rate 1: 70 bpm Height: 5'7" SpO2: 93% Weight: 260 lbs 08/01/2018 Blood Pressure 1: 130/70 Code: 8480-6 BMI: 40.7 Code: 08711-1 Heart Rate 1: 80 bpm Height: 5'7" SpO2: 93% Weight: 260 lbs 04/20/2018 Blood Pressure 1: 128/68 Code: 8480-6 BMI: 41.7 Code: 88800-4 Heart Rate 1: 85 bpm Height: 5'7" SpO2: 94% Weight: 266 lbs 02/09/2018 Blood Pressure 1: 118/70 Code: 8480-6 BMI: 42.1 Code: 16565-6 Heart Rate 1: 58 bpm Height: 5'7" SpO2: 94% Weight: 269 lbs 12/16/2017 Blood Pressure 1: 132/86 Code: 8480-6 BMI: 42.7 Code: 30950-3 Heart Rate 1: 63 bpm Height: 5'7" SpO2: 94% Weight: 272 lbs 14 o z 08/23/2017 Blood Pressure 1: 150/82 Code: 8480-6 BMI: 42.0 Code: 34513-2 Heart Rate 1: 66 bpm Height: 5'7" SpO2: 96% Weight: 268 lbs 02/03/2017 Blood Pressure 1: 138/72 Code: 8480-6 BMI: 41.2 Code: 91923-2 Heart Rate 1: 96 bpm Height: 5'7" SpO2: 97% Weight: 263 lbs 02/02/2017 Blood Pressure 1: 140/90 Code: 8480-6 BMI: 41.2 Code: 81133-3 Heart Rate 1: 103 bpm Height: 5'7" SpO2: 94% Weight: 263 lbs 11/26/2016 Blood Pressure 1: 152/88 Code: 8480-6 BMI: 41.0 Code: 63080-3 Heart Rate 1: 71 bpm Height: 5'7" SpO2: 94% Temperature: 37.7 (C ) / 99.8 (F) Weight: 262 lbs 10/07/2016 Blood Pressure 1: 148/82 Code: 8480-6 BMI: 41.7 Code: 02819-3 Heart Rate 1: 58 bpm Height: 5'7" SpO2: 96% Weight: 266 lbs 09/16/2016 Blood Pressure 1: 122/70 Code: 8480-6 BMI: 42.0 Code: 47881-1 Heart Rate 1: 65 bpm Height: 5'7" SpO2: 96% Weight: 268 lbs 09/07/2016 Blood Pressure 1: 154/60 Code: 8480-6 BMI: 42.3 Code: 86960-6 Heart Rate 1: 101 bpm Height: 5'7" SpO2: 97% Weight: 270 lbs 04/08/2016 Blood Pressure 1: 128/70 Code: 8480-6 BMI: 41.4 Code: 98227-3 Heart Rate 1: 62 bpm Height: 5'7" SpO2: 95% Weight: 264 lbs 8 oz 03/05/2016 Blood Pressure 1: 144/78 Code: 8480-6 Blood Pressure 1: 139/72 Code: 8480-6 BMI: 41.9 Code: 98652-7 Heart Rate 1: 71 bpm Height: 5'7" SpO2: 93% Weight: 267 lbs 8 oz 12/04/2015 Blood Pressure 1: 132/70 Code: 8480-6 BMI: 41.3 Code: 57979-0 Heart Rate 1: 56 bpm Height: 5'7" SpO2: 96% Weight: 264 lbs 11/18/2015 Blood Pressure 1: 138/72 Code: 8480-6 BMI: 41.0 Code: 39701-9 Heart Rate 1: 85 bpm Height: 5'7" SpO2: 93% Weight: 262 lbs 09/30/2015 Blood Pressure 1: 128/76 Code: 8480-6 BMI: 41.2 Code: 98919-3 Heart Rate 1: 70 bpm Height: 5'7" SpO2: 93% Weight: 263 lbs 09/09/2015 Blood Pressure 1: 138/80 Code: 8480-6 BMI: 40.3 Code: 72799-6 Heart Rate 1: 84 bpm Height: 5'7" SpO2: 95% Weight: 257 lbs 08/28/2015 Blood Pressure 1: 122/72 Code: 8480-6 BMI: 39.6 Code: 04409-4 Heart Rate 1: 75 bpm Height: 5'7" SpO2: 96% Weight: 253 lbs 07/09/2015 Blood Pressure 1: 140/78 Code: 8480-6 Blood Pressure 1: 135/78 Code: 8480-6 BMI: 39.5 Code: 85531-7 Heart Rate 1: 62 bpm Height: 5'7" SpO2: 95% Weight: 252 lbs 03/06/2015 Blood Pressure 1: 142/88 Code: 8480-6 BMI: 39.3 Code: 56151-2 Heart Rate 1: 65 bpm Height: 5'7" SpO2: 95% Weight: 251 lbs Functional Status No Functional Status data History of Present Illness Symptom Name Status Resu lt Effective Date Notes Quality worsening 12/06/2018 None Quality intermittent 12/06/2018 [...] ago 10/25/2018 None Location in the [facility] 10/25/2018 None Quality burning 10/25/2018 None [...] Encounters Encounter Performer Loca tion Codes Date ([id number]) 74179 EST. P ATIENT, LEVEL IV Diagnosis: Localized edema[ICD10: R60.0] Diagnosis: Dysuria[ICD10: R30.0] Diagnosis: Cellulitis of abdominal wall[ICD10: L03.311] Alis Spring MD, [facility] CPT-4: 46302 12/06/2018 ([id number]) 73161 EST. P ATIENT, LEVEL III Diagnosis: Dysuria[ICD10: R30.0] Diagnosis: Essential (primary) hypertension[ICD10: I10] Diagnosis: Major depressive disorder, recurrent, moderate[ICD10: F33.1] Alis Spring MD, [facility] CPT-4: 37725 11/15/2018 ([id number]) 78650 EST. P ATIENT, LEVEL IV Diagnosis: Eructation[ICD10: R14.2] Diagnosis: Nausea[ICD10: R11.0] Diagnosis: Chest pain, unspecified[ICD10: R07.9] Diagnosis: Diarrhea, unspecified[ICD10: R19.7] Alis Spring MD, [facility] CPT-4: 77063 10/25/2018 ([id number]) 47022 EST. P ATIENT, LEVEL IV Diagnosis: Essential (primary) hypertension[ICD10: I10] Diagnosis: Low back pain[ICD10: M54.5] Diagnosis: Major depressive disorder, recurrent, moderate[ICD10: F33.1] Alis Spring MD, [facility] CPT-4: 16944 10/13/2018 ([id number]) 29593 EST. P ATIENT, LEVEL IV Diagnosis: Essential (primary) hypertension[ICD10: I10] Diagnosis: Dysuria[ICD10: R30.0] Diagnosis: Low back pain[ICD10: M54.5] Alis Spring MD, [facility] CPT- 4: 15996 09/15/2018 ([id number]) 28388 EST. P ATIENT, LEVEL III Diagnosis: Essential (primary) hypertension[ICD10: I10] Diagnosis: Low back pain[ICD10: M54.5] Alis Spring MD, [facility] CPT- 4: 20804 08/15/2018 ([id number]) 54946 EST. P ATIENT, LEVEL III Diagnosis: Essential (primary) hypertension[ICD10: I10] Diagnosis: Cough[ICD10: R05] Diagnosis: Low back pain[ICD10: M54.5] Alis Spring MD, [facility] CPT- 4: 30836 08/01/2018 ([id number]) 93842 EST. P ATIENT, LEVEL IV Diagnosis: Encounter for immunization[ICD10: Z23] Diagnosis: Essential (primary) hypertension[ICD10: I10] Diagnosis: Chronic atrial fibrillation[ICD10: I48.2] Diagnosis: Major depressive disorder, recurrent, mild[ICD10: F33.0] Scarlett Spring MD, C CPT-4: 78772 04/20/2018 ([id number]) 04168 EST. P ATIENT, LEVEL IV Diagnosis: Essential (primary) hypertension[ICD10: I10] Diagnosis: Obstructive sleep apnea (adult) (pediatric)[ICD10: G47.33] Diagnosis: Chronic atrial fibrillation[ICD10: I48.2] Scarlett Spring MD, [facility] CPT-4: 12103 12/16/2017 ([id number]) 86098 EST. P ATIENT, LEVEL IV Diagnosis: Essential (primary) hypertension[ICD10: I10] Diagnosis: Chronic atrial fibrillation[ICD10: I48.2] Scarlett Spring MD, C CPT-4: 84705 08/23/2017 ([id number]) 31746 EST. P ATIENT, LEVEL IV Diagnosis: Paroxysmal atrial fibrillation[ICD10: I48.0] Diagnosis: Essential (primary) hypertension[ICD10: I10] Scarlett Spring MD, [facility] CPT-4: 80105 02/02/2017 79220 EST. PATIENT, LEVEL III Diagnosis: Acute laryngopharyngitis[ICD10: J06.0] Diagnosis: Cough[ICD10: R05] Diagnosis: Pleurodynia[ICD10: R07.81] Diagnosis: Other dorsalgia[ICD10: M54.89] Kassandra Spring MD, [facility] CPT-4: 97364 11/26/2016 ([id number]) 19731 EST. P ATIENT, LEVEL IV Diagnosis: Essential (primary) hypertension[ICD10: I10] Diagnosis: Pain in left knee[ICD10: M25.562] Diagnosis: Low back pain[ICD10: M54.5] Diagnosis: Major depressive disorder, recurrent, moderate[ICD10: F33.1] Scarlett Spring MD, [facility] CPT-4: 36913 10/07/2016 ([id number]) 57633 EST. P ATIENT, LEVEL IV Diagnosis: Essential (primary) hypertension[ICD10: I10] Diagnosis: Rash and other nonspecific skin eruption[ICD10: R21] Diagnosis: Major depressive disorder, recurrent, mild[ICD10: F33.0] Scarlett Spring MD, [facility] CPT-4: 53639 09/16/2016 29879 EST. PATIENT, LEVEL IV Diagnosis: Pain in left lower leg[ICD10: M79.662] Diagnosis: Pain in left knee[ICD10: M25.562] Kassandra Spring MD, [facility] CPT-4: 08004 09/07/2016 ([id number]) 92039 EST. P ATIENT, LEVEL IV Diagnosis: Encounter for immunization[ICD10: Z23] Diagnosis: Essential (primary) hypertension[ICD10: I10] Diagnosis: Mixed hyperlipidemia[ICD10: E78.2] Scarlett Spring MD, [facility] CPT- 4: 46324 04/08/2016 ([id number]) 38953 EST. P ATIENT, LEVEL III Diagnosis: Essential (primary) hypertension[ICD10: I10] Diagnosis: Shortness of breath[ICD10: R06.02] Scarlett Spring MD, [facility] CPT- 4: 59455 03/05/2016 ([id number]) 70365 EST. P ATIENT, LEVEL III Diagnosis: Chronic obstructive pulmonary disease, unspecified[ICD10: J44.9] Scarlett Spring MD, [facility] CPT-4: 44789 12/04/2015 ([id number]) 46765 EST. P ATIENT, LEVEL IV Diagnosis: Essential (primary) hypertension[ICD10: I10] Diagnosis: Allergic rhinitis due to pollen[ICD10: J30.1] Scarlett Spring MD, [facility] CPT-4: 71340 11/18/2015 ([id number]) 92918 EST. P ATIENT, LEVEL IV Diagnosis: Localized edema[ICD10: R60.0] Diagnosis: Dysuria[ICD10: R30.0] Diagnosis: Essential (primary) hypertension[ICD10: I10] Diagnosis: Nausea[ICD10: R11.0] Alis Spring MD, [facility] CPT-4: 64229 09/30/2015 ([id number]) 11620 EST. P ATIENT, LEVEL II Diagnosis: Methicillin susceptible Staphylococcus aureus infection as the cause of diseases classified elsewhere[ICD10: B95.61] Diagnosis: Methicillin susceptible Staphylococcus aureus infection, unspecified site[ICD10: A49.01] Alis Spring MD, [facility] CPT-4: 83261 09/09/2015 ([id number]) 98568 EST. P ATIENT, LEVEL III Diagnosis: Dermatophytosis, unspecified[ICD10: B35.9] Diagnosis: Rash and other nonspecific skin eruption[ICD10: R21] Scarlett Spring MD, [facility] CPT-4: 25389 08/28/2015 ([id number]) 92288 EST. P ATIENT, LEVEL IV Diagnosis: Essential (primary) hypertension[ICD10: I10] Diagnosis: Gastro-esophageal reflux disease without esophagitis[ICD10: K21.9] Diagnosis: Other dorsalgia[ICD10: M54.89] Scarlett Spring MD, [facility] CPT-4: 34115 07/09/2015 ([id number]) OFFICE VISI , [facility] - LEVEL 4 Diagnosis: ESSENTIAL HYPERTENSION[ICD9: 401.9] Diagnosis: Osteoporosis[ICD9: 733.00] Diagnosis: Back pain[ICD9: 724.5] Diagnosis: Insomnia[ICD9: 780.52] Diagnosis: ESOPHAGEAL REFLUX[ICD9: 530.81] [facility] CPT-4: 01657 03/06/2015 Plan of Care Planned Activity Notes C odes Status Date Appointment: Alis Muhammad WPtel: [facility]1 [address] (30 min) Complex 12/13/2018 Visit Plan: Edema [...] discharge. 12/06/2018 Appointment: Alis Muhammad WPtel: [phone] [phone] (30 min) Complex 12/06/2018 Patient Education: Patient [...] indicated 11/15/2018 Appointment: Alis Muhammad WPtel: [facility]2 [phone] (15 min) Moderate 11/15/2018 Patient Education: Patient [...] in ER 10/25/2018 Appointment: Alis Muhammad WPtel: [phone] [phone] (15 min) Moderate 10/25/2018 Patient Education: Patient [...] current treatment 10/13/2018 Appointment: Alis Muhammad WPtel: [phone] [phone] (15 min) Moderate 10/13/2018 Patient Education: [...] Muhammad WPtel: [facility]5 [phone] (30 min) Complex 09/15/2018 Patient Education: [...] Muhammad WPtel: [facility]5 [phone] (30 min) Complex 08/15/2018 Patient Education: Patient Medication Summary Completed 08/15/2018 Patient Education: Back Pain Completed 08/15/2018 Visit Plan: HTN-onofre induced cough-s top lisinopril -start losartan -monitor blood pressure and follow up in 2 weeks Low back pain-xray lumbar spine and refer for PT 08/01/2018 Appointment: Alis Muhammad WPtel: [facility]5 [phone] (15 min) Moderate 08/01/2018 Patient Education: Patient Medication Summary Completed 08/01/2018 Patient Education: Back Pain Completed 08/01/2018 Care Plan: X-RAY EXAM L-S SPINE 08/28 S LOINC : 67715-3 Pending 08/01/2018 Visit Plan: Hypertension - well [...] shot today. 04/20/2018 [facility]ment[phone] (15 min) Moderate 04/20/2018 Patient Education: [...] surrogate. 02/09/2018 Appointment: [phone] [place] [address] - Annual Wellness Visit 02/09/2018 Patient Education: [...] WPtel: [facility]5 [facility] (15 min) Moderate 12/16/2017 Patient [...] uncontrolled. 08/23/2017 Appointment: Scarlett Spring WPtel: [phone] [facility] (15 min) Moderate 08/23/2017 Patient Education: [...] cardiology 02/03/2017 Appointment: [facility]gu[phone] [facility] [facility] - Annual Wellness Visit 02/03/2017 Patient Education: [...] home. 02/02/2017 Appointment: Scarlett Spring WPtel: [facility]6 [facility] (15 min) Moderate 02/02/2017 Patient [...] not improve. 11/26/2016 Appointment: Kassandra Argueta WPtel: [facility]2 [facility] (30 min) Complex 11/26/2016 Patient Education: [...] symptoms. 10/07/2016 Appointment: Scarlett Spring WPtel: [facility] [place] (15 min) Moderate 10/07/2016 Patient Education: Patient Medication Summary Completed 10/07/2016 Patient Education: Obesity Completed 10/07/2016 Patient Education: Hypertension Completed 10/07/2016 Care Plan: VASCULAR STUDY Pending 10/04/2016 Care Plan: X-RAY EXAM OF KNEE 3 [facility] : 36352-4 Pending 10/04/2016 Visit Plan: Hypertension - well [...] Spring WPtel: [facility] [place] (15 min) Moderate 09/16/2016 Patient [...] improve. 09/07/2016 Appointment: Kassandra Argueta WPtel: [facility] [place] (10 min) [...] order 04/08/2016 Appointment: Scarlett Spring WPtel: [facility]5 [facility] (15 min) Moderate 04/08/2016 Patient Education: [...] days. 03/05/2016 Appointment: Scarlett Spring WPtel: [facility]9 [facility] (15 min) Moderate 03/05/2016 Patient Education: Patient Medication Summary Completed 03/05/2016 Visit Plan: COPD - chronic problem for this patient. We have reviewed chronic treatment strategy, symptom control, and plans for acute exacerbations. No changes today to the current treatment plan as the patient is stable, monitor for acute changes. anoro samples given to the patient 12/04/2015 Appointment: Scarlett Spring WPtel: [facility]5 [facility]66[facility] (15 min) Moderate 12/04/2015 Patient Education: Patient [...] WPtel: [facility]5 [facility] (15 min) Moderate 11/18/2015 Patient Education: Patient Medication Summary Completed 11/18/2015 Patient Education: Obesity Completed 11/18/2015 Patient Education: Hypertension Completed 11/18/2015 Appointment: Scarlett Spring WPtel: [facility] (15 min) Moderate 11/07/2015 Visit [...] Visit Plan: MSSA of groin and under nmuyasn-ceajzvlzj-yahlgv bactrim and call if rash does not completely resolve 09/09/2015 Appointment: (15 min) Moderate 09/09/2015 Patient Education: Patient Medication Summary Completed 09/09/2015 Visit Plan: Rash - dermatophytosis - recommended oral diflucan, topical nystatin cream, rtc in 10 days to assure healing. check of culture - may need to consider treatment with antibiotic depending on the groin culture report. 08/28/2015 Appointment: Scarlett Spring WPtel: [address] [place], [place] [phone] (15 min) Moderate 08/28/2015 Patient [...] improving. 07/09/2015 Appointment: Scarlett Spring WPtel: [facility]3 [facility] (15 min) Moderate 07/09/2015 Patient [...] not improving. 03/06/2015 Appointment: Scarlett Spring WPtel: [address] [place], [place] [address] [place] ([place]) New Patient 03/06/2015 Patient Education: Patient Medication Summary Completed 03/06/2015 Patient Education: Hypertension Completed 03/06/2015 Instructions Comment CALL WEDNESDAY IF RASH NOT COMPLETELY RESOLVED . MSSA of groin and under breasts-improv ing-finish bactrim and call if rash does not completely resolve . Medicare Exam - to day we [...] pain is worsening or does not improve. d/c losartan start valsartan 160mg daily increase [...] will find out if anyone comes to [place] check UA start probiotic daily . Hypertension [...] Ortho if symptoms do not improve . Medicare Exam - to day we [...]
--- OUTSIDE RECORDS SUMMARY | 2020-01-23 14:18 | XMS REPORT | CCD ---
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 Part B [id number] Unkn own Family history Mother Diagnosis Age At Onset Hypertension Unknown Heart Attack Unknown Brother Diagnosis Age At Onset Heart disease Unknown Runs in the family Diagnosis Age At Onset Heart disease Unknown Daughter Diagnosis Age At Onset Heart Attack Unknown Hyperlipidemia Unknown Hypertension Unknown Social History Social History Element Codes Description Effective Dates Number of children Unknown 2 daughter lives in [place], son - does not have contact 09/16/[address]: 1831826 Quit over 10 years ago 1990 - previously smoked 2ppd x 25 years. 11/18/2015 Marital status Unknown W [place]owed in 201003/06/2015 Employment Unknown Retir ed was a [employer] 03/06/2015 Allergies, Adverse Reactions, Alerts Substance [...] Date Stop Date Sta tus Fill Instructions mupirocin 2 % topica l ointment RxNorm: 627467 1 Application TOP BID 12/06/2018 12/19/2018 Active doxycycline hyclate 100 mg tablet RxNorm: 4780622 1 Tablet(s) PO BID 11/21/2018 11/27/2018 Inactive can exchange for capsule if cheaper doxycycline hyclate 100 mg tablet RxNorm: 9415093 1 Tablet(s) PO BID 11/21/2018 11/20/2018 Inactive simethicone 125 mg c hewable tablet RxNorm: 781212 1 Tablet(s) PO qid pr n 10/25/2018 No Stop Date Active promethazine 25 mg t ablet RxNorm: 306831 1 Tablet(s) PO Q6 PRN 10/25/2018 No Stop Date Active paroxetine 40 mg tablet RxNorm: 0947052 1 Tablet(s) PO daily 10/13/2018 04/10/2019 Active valsartan 160 mg tablet RxNorm: 001776 1 Tablet(s) PO daily 10/13/2018 04/10/2019 Active Ambien 10 mg tablet RxNorm: 259526 TAKE ONE TABLET BY MOUTH AT BEDTIME N EEDED 09/23/2018 11/21/2018 Inactive terazosin 5 mg capsule RxNorm: 168487 TAKE ONE CAPSULE BY MOUTH DAILY 09/23/2018 02/19/2019 Ac tive trazodone 50 mg tablet RxNorm: 479546 TAKE ONE TABLET BY MOUTH DAILY 09/23/2018 03/21/2019 Ac tive losartan 50 mg tablet RxNorm: 307668 1 Tablet(s) PO daily 09/15/2018 10/12/2018 Inactive omeprazole 20 mg cap marina,delayed release RxNorm: 755096 TAKE ONE CAPSULE BY M OUTH EVERY NIGHT AT BEDTIME 09/12/2018 03/10/2019 Active Keflex 500 mg capsule RxNorm: 398226 1 Capsule(s) PO TID 08/18/2018 08/17/2018 Inactive Keflex 500 mg capsule RxNorm: 574136 1 Capsule(s) PO TID 08/18/2018 08/24/2018 Inactive take probiotic while on abx paroxetine 20 mg tablet RxNorm: 7846343 TAKE ONE TABLET BY MOUTH DAILY 08/12/2018 10/12/2018 In active losartan 25 mg tablet RxNorm: 596938 1 Tablet(s) PO daily 08/01/2018 09/14/2018 Inactive losartan 25 mg tablet RxNorm: 638110 1 Tablet(s) PO daily 08/01/2018 10/12/2018 Inactive trazodone 50 mg tablet RxNorm: 527835 TAKE ONE TABLET BY MOUTH DAILY 07/25/2018 09/22/2018 In active Ambien 10 mg tablet RxNorm: 202549 Tablet(s) TAKE ONE TABLET BY MOUTH AT BE DTIPA 06/24/2018 09/23/2018 Inactive trazodone 50 mg tablet RxNorm: 309858 TAKE ONE TABLET BY MOUTH DAILY 04/25/2018 07/23/2018 In active Ambien 10 mg tablet RxNorm: 916448 Tablet(s) TAKE ONE TABLET BY MOUTH AT BE DTIME 03/23/2018 06/19/2018 Inactive terazosin 5 mg capsule RxNorm: 058186 TAKE ONE CAPSULE BY MOUTH DAILY 03/14/2018 09/09/2018 In active Ambien 10 mg tablet RxNorm: 623879 Tablet(s) TAKE ONE TABLET BY MOUTH AT BE DTIPA 01/18/2018 09/14/2018 Inactive trazodone 50 mg tablet RxNorm: 074711 TAKE ONE TABLET BY MOUTH ONCE DAILY 01/10/2018 03/22/2018 In active trazodone 50 mg tablet RxNorm: 551715 Tablet(s) TAKE ONE TABLET BY MOUTH ONCE DAILY 01/10/2018 04/24/2018 Inactive Ambien 10 mg tablet RxNorm: 320677 Tablet(s) TAKE ONE TABLET BY MOUTH AT DTIPA 10/22/2017 01/17/2018 Inactive trazodone 50 mg tablet RxNorm: 387059 TAKE ONE TABLET BY MOUTH ONCE DAILY 10/18/2017 01/09/2018 In active omeprazole 20 mg cap marina,delayed release RxNorm: 908043 TAKE ONE CAPSULE BY M OUTH ONCE DAILY AT BEDTIME 08/27/2017 09/11/2018 Inactive trazodone 50 mg tablet RxNorm: 012796 TAKE ONE TABLET BY MOUTH ONCE DAILY 08/18/2017 10/17/2017 In active Ambien 10 mg tablet RxNorm: 871939 Tablet(s) TAKE ONE TABLET BY MOUTH AT BE DTIPA 08/18/2017 03/22/2018 Inactive paroxetine 20 mg tablet RxNorm: 0512727 TAKE ONE TABLET BY MOUTH ONCE DAILY 07/27/2017 08/11/2018 In active Ambien 10 mg tablet RxNorm: 411543 Tablet(s) TAKE ONE TABLET BY MOUTH AT BE DTIPA 06/23/2017 03/22/2018 Inactive omeprazole 20 mg cap marina,delayed release RxNorm: 132719 TAKE ONE CAPSULE BY M OUTH ONCE DAILY AT BEDTIME 04/23/2017 08/20/2017 Inactive trazodone 50 mg tablet RxNorm: 489187 TAKE ONE TABLET BY MOUTH ONCE DAILY 04/13/2017 08/10/2017 In active terazosin 5 mg capsule RxNorm: 061357 Capsule(s) TAKE ONE CAPSULE BY MOUTH TATA 04/08/2017 03/03/2018 In active Ambien 10 mg tablet RxNorm: 693659 Tablet(s) TAKE ONE TABLET BY MOUTH AT DTIPA 02/17/2017 03/22/2018 Inactive Tylenol-Codeine #3 3 00 mg-30 mg tablet RxNorm: 711443 1 Tablet(s) PO QID as needed 02/02/2017 11/14/2018 In active metoprolol succinate ER 50 mg tablet,extended release 24 hr RxNorm: 654523 TAKE ONE TABLET BY MOUTH ONCE DAILY 12/23/2016 02/02/2017 Inactive Zithromax Z-Ted 250 mg tablet RxNorm: 629166 1 Tablet(s) PO UD 11/26/2016 02/16/2017 Inactive trazodone 50 mg tablet RxNorm: 771736 TAKE ONE TABLET BY MOUTH ONCE DAILY 11/12/2016 03/11/2017 In active Ambien 10 mg tablet RxNorm: 072536 Tablet(s) TAKE ONE TABLET BY MOUTH AT [facility] 10/22/2016 02/15/2017 Inactive paroxetine 20 mg tablet RxNorm: 2203768 1 Tablet(s) PO daily TAKE ONE TABLET BY MOUTH DAILY 09/16/2016 06/12/2017 Inactive meloxicam 7.5 mg tablet RxNorm: 139367 1 Tablet(s) PO daily 09/16/2016 11/14/2016 Inactive Protonix 40 mg table t,delayed release RxNorm: 080158 1 Tablet(s) PO daily 09/16/2016 08/22/2017 In active sucralfate 1 gram ta blet RxNorm: 510269 1 Tablet(s) PO TID 09/16/2016 08/22/2017 Inactive Ambien 10 mg tablet RxNorm: 188962 Tablet(s) TAKE ONE TABLET BY MOUTH AT BE DTIPA 08/24/2016 03/22/2018 Inactive trazodone 50 mg tablet RxNorm: 917996 Tablet(s) TAKE ONE TABLET BY MOUTH DAILY 07/29/2016 11/11/2016 In active Ambien 10 mg tablet RxNorm: 533482 TAKE ONE TABLET BY MOUTH AT BEDTIME 06/23/2016 03/22/2018 In active Ambien 10 mg tablet RxNorm: 649987 Tablet(s) TAKE ONE TABLET BY MOUTH EVERY NIGHT AT BEDTIME 06/22/2016 06/23/2016 Inactive Lasix 40 mg tablet RxNorm: 669492 1 Tablet(s) PO daily as needed for swell ing 04/03/2016 09/15/2016 In active potassium chloride E R 20 mEq tablet,extended release RxNorm: 067104 1 Tablet(s) PO daily for swelling take with lasix as needed 04/03/2016 09/15/2016 Inactive Ambien 10 mg tablet RxNorm: 406998 Tablet(s) TAKE ONE TABLET BY MOUTH EVERY NIGHT AT BEDTIME 04/03/2016 03/22/2018 Inactive omeprazole 20 mg cap marina,delayed release RxNorm: 955592 TAKE ONE CAPSULE BY M OUTH EVERY NIGHT AT BEDTIME 03/31/2016 09/15/2016 Inactive paroxetine 20 mg tablet RxNorm: 4176161 TAKE ONE TABLET BY MOUTH DAILY 03/31/2016 09/15/2016 In active trazodone 50 mg tablet RxNorm: 724548 TAKE ONE TABLET BY MOUTH DAILY 03/20/2016 07/28/2016 In active terazosin 5 mg capsule RxNorm: 277816 TAKE ONE CAPSULE BY MOUTH DAILY 03/06/2016 10/06/2016 In active Ambien 10 mg tablet RxNorm: 743077 Tablet(s) TAKE ONE TABLET BY MOUTH EVERY NIGHT AT BEDTIME 01/17/2016 04/02/2016 Inactive loratadine 10 mg tablet RxNorm: 629884 1 Tablet(s) PO daily 01/15/2016 09/15/2016 Inactive mupirocin 2 % topica l ointment RxNorm: 645220 1 Application TOP TID 11/18/2015 12/01/2015 Inactive metoprolol succinate ER 50 mg tablet,extended release 24 hr RxNorm: 525649 1 Tablet(s) PO daily 11/18/2015 11/11/2016 Inactive loratadine 10 mg tablet RxNorm: 013212 1 Tablet(s) PO daily 11/18/2015 01/14/2016 Inactive Lasix 40 mg tablet RxNorm: 956661 1 Tablet(s) PO daily as needed for swell ing 10/30/2015 11/28/2015 In active potassium chloride E R 20 mEq tablet,extended release RxNorm: 351269 1 Tablet(s) PO daily for swelling take with lasix as needed 10/30/2015 11/28/2015 Inactive Tylenol-Codeine #3 3 00 mg-30 mg tablet RxNorm: 874031 1 Tablet(s) PO QID as needed 10/25/2015 02/01/2017 In active Ambien 10 mg tablet RxNorm: 521138 Tablet(s) TAKE ONE TABLET BY MOUTH EVERY NIGHT AT BEDTIME 10/18/2015 03/22/2018 Inactive Diflucan 150 mg tablet RxNorm: 279160 1 Tablet(s) PO daily 10/01/2015 12/03/2015 Inactive Lasix 20 mg tablet RxNorm: 962813 1 Tablet(s) PO PRN fror swelling 09/27/2015 10/29/2015 In active potassium chloride E R 10 mEq capsule,extended release RxNorm: 464687 1 Capsule(s) PO PRN for swelling take with lasix 09/27/2015 10/29/2015 Inactive Bactrim DS 800 mg-16 0 mg tablet RxNorm: 574208 1 Tablet(s) PO BID 09/02/2015 09/11/2015 Inactive Bactrim DS 800 mg-16 0 mg tablet RxNorm: 317227 1 Tablet(s) PO BID 09/02/2015 09/01/2015 Inactive nystatin 100,000 uni t/gram topical cream RxNorm: 055361 1 Gram(s) TOP TID 08/28/2015 09/26/2015 In active Diflucan 150 mg tablet RxNorm: 500048 1 Tablet(s) PO daily 08/28/2015 09/06/2015 Inactive betamethasone diprop ionate 0.05 % topical ointment RxNorm: 215029 1 Application TOP TID to affected area 08/02/2015 02/01/2017 Inactive nystatin 100,000 uni t/gram topical powder RxNorm: 692763 1 Gram(s) TOP QID 07/09/2015 08/01/2015 In active Ambien 10 mg tablet RxNorm: 670762 1 Tablet(s) PO QHS 06/19/2015 06/18/2015 Inactive Ambien 10 mg tablet RxNorm: 038654 TAKE ONE TABLET BY MOUTH EVERY NIGHT AT BEDTIME 06/19/2015 09/16/2015 Inactive Vitamin D2 50,000 un it capsule RxNorm: 369535 1 Capsule(s) PO QW 03/07/2015 03/06/2015 Inactive Vitamin D2 50,000 un it capsule RxNorm: 951066 1 Capsule(s) PO QW 03/07/2015 05/05/2015 Inactive terazosin 5 mg capsule RxNorm: 069558 1 Capsule(s) PO daily 03/06/2015 02/28/2016 Inactive [SAVINGS FOR NON-COVERED DRUGS -- BIN:00 0479, PCN: [id number], Group: XXXXX, ID# [id number], Questions: . THIS IS NOT INSURANCE.] trazodone 50 mg tablet RxNorm: 396004 1 Tablet(s) PO daily 03/06/2015 02/28/2016 Inactive paroxetine 20 mg tablet RxNorm: 9085235 1 Tablet(s) PO daily 03/06/2015 02/28/2016 Inactive Tylenol-Codeine #3 3 00 mg-30 mg tablet RxNorm: 307622 1 Tablet(s) PO QID as needed 03/06/2015 07/02/2015 In active amlodipine 10 mg tablet RxNorm: 887753 1 Tablet(s) PO daily 03/06/2015 11/17/2015 Inactive metoprolol succinate ER 25 mg tablet,extended release 24 hr RxNorm: 016711 1 Tablet(s) PO daily 03/06/2015 11/17/2015 Inactive omeprazole 20 mg cap marina,delayed release RxNorm: 069138 1 Capsule(s) PO QHS 03/06/2015 02/28/2016 In active omeprazole 20 mg cap marina,delayed release RxNorm: 457148 1 Capsule(s) PO QHS 01/31/2015 01/30/2015 In active omeprazole 20 mg cap marina,delayed release RxNorm: 791045 1 Capsule(s) PO QHS 01/31/2015 01/30/2015 In active omeprazole 20 mg cap marina,delayed release RxNorm: 840821 1 Capsule(s) PO QHS 01/31/2015 03/05/2015 In active Ambien 10 mg tablet RxNorm: 010654 1 Tablet(s) PO QHS 12/25/2014 04/21/2015 Inactive paroxetine 20 mg tablet RxNorm: 034665 1 Tablet(s) PO daily 12/25/2014 12/24/2014 Inactive Ambien 10 mg tablet RxNorm: 677644 1 Tablet(s) PO QHS 12/25/2014 12/24/2014 Inactive paroxetine 20 mg tablet RxNorm: 905677 1 Tablet(s) PO daily 12/25/2014 03/05/2015 Inactive terazosin 5 mg capsule RxNorm: 007604 1 Capsule(s) PO daily 11/23/2014 03/05/2015 Inactive [SAVINGS FOR NON-COVERED DRUGS -- BIN:00 5227, PCN: ASPROD1, Group: XXXXX, ID# [id number], Questions: . THIS IS NOT INSURANCE.] terazosin 5 mg capsule RxNorm: 641229 1 Capsule(s) PO daily 11/23/2014 11/22/2014 Inactive Lasix 20 mg tablet RxNorm: 318188 1 Tablet(s) PO daily No Start Date Active K-Dur 10 mEq tablet, extended release RxNorm: 741414 1 Tablet(s) PO daily No Start Date Active hydrochlorothiazide 25 mg tablet RxNorm: 043197 1 Tablet(s) PO daily No Start Date Active Vitamin D3 2,000 uni t tablet RxNorm: 272864 1 Tablet(s) PO daily No Start Date Active amiodarone 200 mg ta blet RxNorm: 974724 1 Tablet(s) PO BID No Start Date Active Zetia 10 mg tablet RxNorm: 628738 1 Tablet(s) PO daily No Start Date Active Lipitor 80 mg tablet RxNorm: 728009 1/2 Tablet(s) PO daily No Start Date Active Coumadin 4 mg tablet RxNorm: 869353 1 Tablet(s) PO daily No Start Date Active metoprolol succinate ER 25 mg tablet,extended release 24 hr RxNorm: 372078 1 Tablet(s) PO daily No Start Date 03/05/2015 Inactive Entresto 49 mg-51 mg tablet RxNorm: 4974215 1 Tablet(s) PO BID No Start Date 04/19/2018 Inactive sotalol 80 mg tablet RxNorm: 6720197 1 Tablet(s) PO BID No Start Date 04/19/2018 Inactive betamethasone diprop ionate 0.05 % topical ointment RxNorm: 401740 1 Application TOP TID to affected area No Start Date 08/01/2015 Inactive trazodone 50 mg tablet RxNorm: 597170 1 Tablet(s) PO daily No Start Date 03/05/2015 Inactive potassium chloride E R 10 mEq capsule,extended release RxNorm: 909191 1 Capsule(s) PO PRN for swelling take with lasix No Start Date 09/26/2015 Inactive Eliquis 5 mg tablet RxNorm: 1197983 1 Tablet(s) PO BID No Start Date 09/14/2018 Inactive amlodipine 10 mg tablet RxNorm: 990210 1 Tablet(s) PO daily No Start Date 03/05/2015 Inactive isosorbide mononitra te ER 30 mg tablet,extended release 24 hr RxNorm: 512123 1 Tablet(s) PO daily No Start Date 08/22/2017 Inactive aspirin 81 mg tablet ,delayed release RxNorm: 519061 1 Tablet(s) PO daily No Start Date 02/02/2017 Inactive Lasix 20 mg tablet RxNorm: 801820 1 Tablet(s) PO PRN fror swelling No Start Date 09/26/2015 Inactive lisinopril 5 mg tablet RxNorm: 052264 1 Tablet(s) PO daily No Start Date 07/31/2018 Inactive Crestor 40 mg tablet RxNorm: 694975 1 Tablet(s) PO daily No Start Date 09/15/2016 Inactive metoprolol succinate ER 100 mg tablet,extended release 24 hr RxNorm: 524275 1 Tablet(s) PO daily No Start Date [...] sent to ref lab 11/16/2018 Culture Urine [id number] URI NE CULTURE SEE NOTES 08/22/2018 Culture Urine [id number] Con tinued Results 08/22/2018 Urine Culture Ucult Comp lete >100,000 col/ml aerobic grow th sent to ref lab 08/19/2018 Comp Metabolic Mmq973 NA 140 mEq/L 08/01/2018 Comp Metabolic Svg844 K 4.2 mEq/L 08/01/2018 Comp Metabolic Dtz819 CL 102 mEq/L 08/01/2018 Comp Metabolic Rka864 CO2 27.0 mEq/L 08/01/2018 Comp Metabolic Yoo306 AN ION GAP 15 08/01/2018 Comp Metabolic Bun125 GL UCOSE 107 mg/dL 08/01/2018 Comp Metabolic Mnk363 Cr eat 1.0 mg/dL 08/01/2018 Comp Metabolic Uxa989 eG FR 58 ml/min/1.73m2 08/01 Comp Metabolic Tww883 BUN 10 mg/dL 08/01/2018 Comp Metabolic Lvd339 B/ C Ratio 10.0 Ratio 08/01/2018 Comp Metabolic Ynj594 CA LCIUM 8.9 mg/dL 08/01/2018 Comp Metabolic Lgs619 AL K PHOS 68 U/L 08/01/2018 Comp Metabolic Kjh961 T(SGOT) 18 U/L 08/01/2018 Comp Metabolic Tft422 AL T(SGPT) 14 U/L 08/01/2018 Comp Metabolic Buf209 BI LI T 0.5 mg/dL 08/01/2018 Comp Metabolic Gil825 AL BUMIN 4.0 g/dL 08/01/2018 Comp Metabolic Wyj603 TP RO 6.3 g/dL 08/01/2018 Comp Metabolic Iiy230 GL OB 2.3 g/dL 08/01/2018 Comp Metabolic Mrh876 A/ G Ratio 1.7 Ratio 08/01/2018 Comp Metabolic Aoe048 Os mo 279 mOsmo 08/01/2018 Tsh Ord6 [...] 27.3 pg 08/01/2018 Cbc With Differential Ord2 [place]% 9.8 % 08/01/2018 Cbc With Differential Ord2 [...] 0.79 K/ul 08/01/2018 Cbc With Differential Ord2 [place] ABS# 0.4 K/ul 08/01/2018 Cbc With Differential Ord2 Eos ABS# 0.1 K/ul 08/01/2018 Cbc With Differential Ord2 Baso ABS# 0.0 K/ul 08/01/2018 Lipid Ord30 CHOL 234 mg/dL 08/01/2018 Lipid Ord30 HDL 69.0 mg/dl 08/01/2018 Lipid Ord30 TRIG 57 mg/dL 08/01/2018 Lipid Ord30 LDL 154 mg/dL 08/01/2018 Lipid Ord30 C/HDL 3.4 Ratio 08/01/2018 Comp Metabolic Duj859 NA 137 mEq/L 09/30/2015 Comp Metabolic Vcn123 K 4.5 mEq/L 09/30/2015 Comp Metabolic Lli036 CL 102 mEq/L 09/30/2015 Comp Metabolic Act613 CO2 26.0 mEq/L 09/30/2015 Comp Metabolic Vqq061 AN ION GAP 14 09/30/2015 Comp Metabolic Ucn152 GL UCOSE 89 mg/dL 09/30/2015 Comp Metabolic Png278 Cr eat 0.8 mg/dL 09/30/2015 Comp Metabolic Kgl786 eG FR 79 ml/min/1.73m2 09/29 Comp Metabolic Xil826 BUN 14 mg/dL 09/30/2015 Comp Metabolic Kko395 B/ C Ratio 18.2 Ratio 09/30/2015 Comp Metabolic Cro497 CA LCIUM 8.9 mg/dL 09/30/2015 Comp Metabolic Dao069 AL K PHOS 65 U/L 09/30/2015 Comp Metabolic Abu787 T(SGOT) 26 U/L 09/30/2015 Comp Metabolic Iex254 AL T(SGPT) 18 U/L 09/30/2015 Comp Metabolic Lmx022 BI LI T 0.6 mg/dL 09/30/2015 Comp Metabolic Mgq322 AL BUMIN 3.8 g/dL 09/30/2015 Comp Metabolic Xxr997 TP RO 6.6 g/dL 09/30/2015 Comp Metabolic Ugt843 GL OB 2.8 g/dL 09/30/2015 Comp Metabolic Qrx319 A/ G Ratio 1.4 Ratio 09/30/2015 Comp Metabolic Crj106 Os mo 274 mOsmo 09/30/2015 Cbc With [...] 27.7 pg 09/30/2015 Cbc With Differential Ord2 [place]% 10.7 % 09/30/2015 Cbc With Differential Ord2 [...] 1.10 K/ul 09/30/2015 Cbc With Differential Ord2 [place] ABS# 0.6 K/ul 09/30/2015 Cbc With Differential Ord2 Eos ABS# 0.2 K/ul 09/30/2015 Cbc With Differential Ord2 Baso ABS# 0.0 K/ul 09/30/2015 Cbc With Differential Ord2 New Analyzer Notice Please note new ref ranges s tarting 08-07-2015 due to implemntation of new five part differential hematolgy analyzer. 09/30/2015 Tsh Ord6 hTSH II 1.05 uIU/mL 03/06/2015 Comp Metabolic Eyf201 NA 137 mEq/L 03/06/2015 Comp Metabolic Cua322 K 4.3 mEq/L 03/06/2015 Comp Metabolic Wne783 CL 104 mEq/L 03/06/2015 Comp Metabolic Ukm176 CO2 28.0 mEq/L 03/06/2015 Comp Metabolic Sgw301 AN ION GAP 9 03/06/2015 Comp Metabolic Ggq752 GL UCOSE 93 mg/dL 03/06/2015 Comp Metabolic Sud652 Cr eat 0.8 mg/dL 03/06/2015 Comp Metabolic Aey187 eG FR 81 ml/min/1.73m2 03/06 Comp Metabolic Suk658 BUN 12 mg/dL 03/06/2015 Comp Metabolic Mnz549 B/ C Ratio 16.0 Ratio 03/06/2015 Comp Metabolic Gec843 CA LCIUM 8.9 mg/dL 03/06/2015 Comp Metabolic Tvo749 AL K PHOS 56 U/L 03/06/2015 Comp Metabolic Uvy395 T(SGOT) 22 U/L 03/06/2015 Comp Metabolic Lmr872 AL T(SGPT) 15 U/L 03/06/2015 Comp Metabolic Uve333 BI LI T 0.4 mg/dL 03/06/2015 Comp Metabolic Jhc716 AL BUMIN 4.0 g/dL 03/06/2015 Comp Metabolic Noe711 TP RO 6.5 g/dL 03/06/2015 Comp Metabolic Hyx785 GL OB 2.5 g/dL 03/06/2015 Comp Metabolic Ato269 A/ G Ratio 1.6 Ratio 03/06/2015 Comp Metabolic Bas510 Os mo 273 mOsmo 03/06/2015 Vitamin D 25 Oh Qjk8822 VITAMIN D, 25 HYDROXY 28.14 ng/mL 03/06/2015 [...] developed 08/15/2018 None Full Exam - General 1995 Constitutional general appearance Overall: in no acute [...] Date URINALYSIS NONAUTO W /O SCOPE CPT-4: 14132 12/06/2018 URINALYSIS NONAUTO W /O SCOPE CPT-4: 49218 11/15/2018 URINALYSIS NONAUTO W /O SCOPE CPT-4: 22967 08/18/2018 ADMIN INFLUENZA VIRU S VAC CPT-4: G0008 04/20/2018 FLU VACC PRSV FREE I NC ANTIG Formatting Model/CDA Sections, Assigned to/Amparo Mims CPT-4: 52924Ttabhyf 04/20/2018 PPPS, SUBSEQ VISIT CPT- 4: G0439 02/09/2018 PPPS, SUBSEQ VISIT CPT- 4: G0439 02/03/2017 ADMIN INFLUENZA VIRU S VAC CPT-4: G0008 04/08/2016 ADMIN PNEUMOCOCCAL V ACCINE SNOMED CT: 27871423 CPT-4: G0009 04/08/2016 PNEUMOCOCCAL VACC [address]: 86866887 CPT-4: 23854 04/08/2016 FLU VACC PRSV FREE I NC ANTIG CPT-4: 40556 04/08/2016 Vital Signs Date Vital 12/06/2018 Blood Pressure 1: 118/70 Code: 8480-6 BMI: 41.5 Code: 04145-1 Heart Rate 1: 97 bpm Height: 5'7" SpO2: 96% Weight: 265 lbs 11/15/2018 Blood Pressure 1: 144/76 Code: 8480-6 BMI: 42.3 Code: 75643-8 Heart Rate 1: 82 bpm Height: 5'7" SpO2: 96% Weight: 270 lbs 10/25/2018 Blood Pressure 1: 128/80 Code: 8480-6 BMI: 42.0 Code: 94026-7 Heart Rate 1: 93 bpm Height: 5'7" SpO2: 95% Weight: 268 lbs 10/13/2018 Blood Pressure 1: 162/76 Code: 8480-6 BMI: 42.0 Code: 46143-9 Heart Rate 1: 71 bpm Height: 5'7" SpO2: 96% Weight: 268 lbs 09/15/2018 Blood Pressure 1: 154/86 Code: 8480-6 BMI: 42.9 Code: 01000-8 Heart Rate 1: 88 bpm Height: 5'7" SpO2: 94% Weight: 274 lbs 08/15/2018 Blood Pressure 1: 140/90 Code: 8480-6 BMI: 40.7 Code: 03379-7 Heart Rate 1: 70 bpm Height: 5'7" SpO2: 93% Weight: 260 lbs 08/01/2018 Blood Pressure 1: 130/70 Code: 8480-6 BMI: 40.7 Code: 02771-4 Heart Rate 1: 80 bpm Height: 5'7" SpO2: 93% Weight: 260 lbs 04/20/2018 Blood Pressure 1: 128/68 Code: 8480-6 BMI: 41.7 Code: 64092-6 Heart Rate 1: 85 bpm Height: 5'7" SpO2: 94% Weight: 266 lbs 02/09/2018 Blood Pressure 1: 118/70 Code: 8480-6 BMI: 42.1 Code: 57605-8 Heart Rate 1: 58 bpm Height: 5'7" SpO2: 94% Weight: 269 lbs 12/16/2017 Blood Pressure 1: 132/86 Code: 8480-6 BMI: 42.7 Code: 37049-9 Heart Rate 1: 63 bpm Height: 5'7" SpO2: 94% Weight: 272 lbs 14 o z 08/23/2017 Blood Pressure 1: 150/82 Code: 8480-6 BMI: 42.0 Code: 78237-3 Heart Rate 1: 66 bpm Height: 5'7" SpO2: 96% Weight: 268 lbs 02/03/2017 Blood Pressure 1: 138/72 Code: 8480-6 BMI: 41.2 Code: 16993-1 Heart Rate 1: 96 bpm Height: 5'7" SpO2: 97% Weight: 263 lbs 02/02/2017 Blood Pressure 1: 140/90 Code: 8480-6 BMI: 41.2 Code: 17986-4 Heart Rate 1: 103 bpm Height: 5'7" SpO2: 94% Weight: 263 lbs 11/26/2016 Blood Pressure 1: 152/88 Code: 8480-6 BMI: 41.0 Code: 74026-4 Heart Rate 1: 71 bpm Height: 5'7" SpO2: 94% Temperature: 37.7 (C ) / 99.8 (F) Weight: 262 lbs 10/07/2016 Blood Pressure 1: 148/82 Code: 8480-6 BMI: 41.7 Code: 48771-0 Heart Rate 1: 58 bpm Height: 5'7" SpO2: 96% Weight: 266 lbs 09/16/2016 Blood Pressure 1: 122/70 Code: 8480-6 BMI: 42.0 Code: 81611-6 Heart Rate 1: 65 bpm Height: 5'7" SpO2: 96% Weight: 268 lbs 09/07/2016 Blood Pressure 1: 154/60 Code: 8480-6 BMI: 42.3 Code: 46226-9 Heart Rate 1: 101 bpm Height: 5'7" SpO2: 97% Weight: 270 lbs 04/08/2016 Blood Pressure 1: 128/70 Code: 8480-6 BMI: 41.4 Code: 04083-8 Heart Rate 1: 62 bpm Height: 5'7" SpO2: 95% Weight: 264 lbs 8 oz 03/05/2016 Blood Pressure 1: 144/78 Code: 8480-6 Blood Pressure 1: 139/72 Code: 8480-6 BMI: 41.9 Code: 36322-0 Heart Rate 1: 71 bpm Height: 5'7" SpO2: 93% Weight: 267 lbs 8 oz 12/04/2015 Blood Pressure 1: 132/70 Code: 8480-6 BMI: 41.3 Code: 64138-0 Heart Rate 1: 56 bpm Height: 5'7" SpO2: 96% Weight: 264 lbs 11/18/2015 Blood Pressure 1: 138/72 Code: 8480-6 BMI: 41.0 Code: 95482-3 Heart Rate 1: 85 bpm Height: 5'7" SpO2: 93% Weight: 262 lbs 09/30/2015 Blood Pressure 1: 128/76 Code: 8480-6 BMI: 41.2 Code: 27258-2 Heart Rate 1: 70 bpm Height: 5'7" SpO2: 93% Weight: 263 lbs 09/09/2015 Blood Pressure 1: 138/80 Code: 8480-6 BMI: 40.3 Code: 40914-9 Heart Rate 1: 84 bpm Height: 5'7" SpO2: 95% Weight: 257 lbs 08/28/2015 Blood Pressure 1: 122/72 Code: 8480-6 BMI: 39.6 Code: 41536-4 Heart Rate 1: 75 bpm Height: 5'7" SpO2: 96% Weight: 253 lbs 07/09/2015 Blood Pressure 1: 140/78 Code: 8480-6 Blood Pressure 1: 135/78 Code: 8480-6 BMI: 39.5 Code: 81919-5 Heart Rate 1: 62 bpm Height: 5'7" SpO2: 95% Weight: 252 lbs 03/06/2015 Blood Pressure 1: 142/88 Code: 8480-6 BMI: 39.3 Code: 88564-8 Heart Rate 1: 65 bpm Height: 5'7" [...] loose 10/25/2018 None Onset and Resolution s luzmaden in onset 10/25/2018 None Onset of Symptom _ amber rs ago 10/25/2018 None Location in the [facility] 10/25/2018 None Quality burning 10/25/2018 None [...] 09/16/2016 None low back pain Quality ac habematolel 09/16/2016 None low back pain Onset and [...] Encounters Encounter Performer Loca tion Codes Date ([id number]) [id number] EST. P ATIENT, LEVEL IV Diagnosis: Localized edema[ICD10: R60.0] Diagnosis: Dysuria[ICD10: R30.0] Diagnosis: Cellulitis of abdominal wall[ICD10: L03.311] Alis Spring MD, [facility] CPT-4: 66430 12/06/2018 ([id number]) [id number] EST. P ATIENT, LEVEL III Diagnosis: Dysuria[ICD10: R30.0] Diagnosis: Essential (primary) hypertension[ICD10: I10] Diagnosis: Major depressive disorder, recurrent, moderate[ICD10: F33.1] Alis Spring MD, [facility] CPT-4: 24436 11/15/2018 ([id number]) [id number] EST. P ATIENT, LEVEL IV Diagnosis: Eructation[ICD10: R14.2] Diagnosis: Nausea[ICD10: R11.0] Diagnosis: Chest pain, unspecified[ICD10: R07.9] Diagnosis: Diarrhea, unspecified[ICD10: R19.7] Alis Spring MD, [facility] CPT-4: 92597 10/25/2018 ([id number]) [id number] EST. P ATIENT, LEVEL IV Diagnosis: Essential (primary) hypertension[ICD10: I10] Diagnosis: Low back pain[ICD10: M54.5] Diagnosis: Major depressive disorder, recurrent, moderate[ICD10: F33.1] [facility] CPT-4: 89917 10/13/2018 ([id number]) 80462 EST. P ATIENT, LEVEL IV Diagnosis: Essential (primary) hypertension[ICD10: I10] Diagnosis: Dysuria[ICD10: R30.0] Diagnosis: Low back pain[ICD10: M54.5] Alis Spring MD, [facility] CPT- 4: 11388 09/15/2018 ([id number]) 20687 EST. P ATIENT, LEVEL III Diagnosis: Essential (primary) hypertension[ICD10: I10] Diagnosis: Low back pain[ICD10: M54.5] Alis Spring MD, [facility] CPT- 4: 96467 08/15/2018 ([id number]) 05032 EST. P ATIENT, LEVEL III Diagnosis: Essential (primary) hypertension[ICD10: I10] Diagnosis: Cough[ICD10: R05] Diagnosis: Low back pain[ICD10: M54.5] Alis Spring MD, [facility] CPT- 4: 69584 08/01/2018 ([id number]) 86900 EST. P ATIENT, LEVEL IV Diagnosis: Encounter for immunization[ICD10: Z23] Diagnosis: Essential (primary) hypertension[ICD10: I10] Diagnosis: Chronic atrial fibrillation[ICD10: I48.2] Diagnosis: Major depressive disorder, recurrent, mild[ICD10: F33.0] Scarlett Spring MD, C CPT-4: 95175 04/20/2018 ([id number]) 49430 EST. P ATIENT, LEVEL IV Diagnosis: Essential (primary) hypertension[ICD10: I10] Diagnosis: Obstructive sleep apnea (adult) (pediatric)[ICD10: G47.33] Diagnosis: Chronic atrial fibrillation[ICD10: I48.2] Scarlett Spring MD, C CPT-4: 23431 12/16/2017 ([id number]) 81814 EST. P ATIENT, LEVEL IV Diagnosis: Essential (primary) hypertension[ICD10: I10] Diagnosis: Chronic atrial fibrillation[ICD10: I48.2] Scarlett Spring MD, C CPT-4: 44096 08/23/2017 ([id number]) 72805 EST. P ATIENT, LEVEL IV Diagnosis: Paroxysmal atrial fibrillation[ICD10: I48.0] Diagnosis: Essential (primary) hypertension[ICD10: I10] Scarlett Spring MD, C CPT-4: 61200 02/02/2017 33686 EST. PATIENT, LEVEL III Diagnosis: Acute laryngopharyngitis[ICD10: J06.0] Diagnosis: Cough[ICD10: R05] Diagnosis: Pleurodynia[ICD10: R07.81] Diagnosis: Other dorsalgia[ICD10: M54.89] Kassandra Spring MD, [facility] CPT-4: 63503 11/26/2016 ([id number]) 91579 EST. P ATIENT, LEVEL IV Diagnosis: Essential (primary) hypertension[ICD10: I10] Diagnosis: Pain in left knee[ICD10: M25.562] Diagnosis: Low back pain[ICD10: M54.5] Diagnosis: Major depressive disorder, recurrent, moderate[ICD10: F33.1] Scarlett Spring MD, [facility] CPT-4: 72309 10/07/2016 ([id number]) 54848 EST. P ATIENT, LEVEL IV Diagnosis: Essential (primary) hypertension[ICD10: I10] Diagnosis: Rash and other nonspecific skin eruption[ICD10: R21] Diagnosis: Major depressive disorder, recurrent, mild[ICD10: F33.0] Scarlett Spring MD, [facility] CPT-4: 49083 09/16/2016 96555 EST. PATIENT, LEVEL IV Diagnosis: Pain in left lower leg[ICD10: M79.662] Diagnosis: Pain in left knee[ICD10: M25.562] Kassandra Spring MD, [facility] CPT-4: 07945 09/07/2016 ([id number]) 73604 EST. P ATIENT, LEVEL IV Diagnosis: Encounter for immunization[ICD10: Z23] Diagnosis: Essential (primary) hypertension[ICD10: I10] Diagnosis: Mixed hyperlipidemia[ICD10: E78.2] Scarlett Spring MD, [facility] CPT- 4: 43450 04/08/2016 ([id number]) 76386 EST. P ATIENT, LEVEL III Diagnosis: Essential (primary) hypertension[ICD10: I10] Diagnosis: Shortness of breath[ICD10: R06.02] [facility] CPT- 4: 56710 03/05/2016 ([id number]) 92851 EST. P ATIENT, LEVEL III Diagnosis: Chronic obstructive pulmonary disease, unspecified[ICD10: J44.9] Scarlett Spring MD, [facility] CPT-4: 19428 12/04/2015 ([id number]) 41203 EST. P ATIENT, LEVEL IV Diagnosis: Essential (primary) hypertension[ICD10: I10] Diagnosis: Allergic rhinitis due to pollen[ICD10: J30.1] Scarlett Spring MD C CPT-4: 27938 11/18/2015 ([id number]) 93467 EST. P ATIENT, LEVEL IV Diagnosis: Localized edema[ICD10: R60.0] Diagnosis: Dysuria[ICD10: R30.0] Diagnosis: Essential (primary) hypertension[ICD10: I10] Diagnosis: Nausea[ICD10: R11.0] Alis Spring MD, [facility] CPT-4: 53778 09/30/2015 ([id number]) 97550 EST. P ATIENT, LEVEL II Diagnosis: Methicillin susceptible Staphylococcus aureus infection as the cause of diseases classified elsewhere[ICD10: B95.61] Diagnosis: Methicillin susceptible Staphylococcus aureus infection, unspecified site[ICD10: A49.01] Alis Spring MD, [facility] CPT-4: 26864 09/09/2015 ([id number]) 35657 EST. P ATIENT, LEVEL III Diagnosis: Dermatophytosis, unspecified[ICD10: B35.9] Diagnosis: Rash and other nonspecific skin eruption[ICD10: R21] Scarlett Spring MD [facility] CPT-4: 34760 08/28/2015 ([id number]) 49572 EST. P ATIENT, LEVEL IV Diagnosis: Essential (primary) hypertension[ICD10: I10] Diagnosis: Gastro-esophageal reflux disease without esophagitis[ICD10: K21.9] Diagnosis: Other dorsalgia[ICD10: M54.89] Scarlett Spring MD, [facility] CPT-4: 00745 07/09/2015 ([id number]) [facility] - LEVEL 4 Diagnosis: ESSENTIAL HYPERTENSION[ICD9: 401.9] Diagnosis: Osteoporosis[ICD9: 733.00] Diagnosis: Back pain[ICD9: 724.5] Diagnosis: Insomnia[ICD9: 780.52] Diagnosis: ESOPHAGEAL REFLUX[ICD9: 530.81] Scarlett Spring MD, [facility] CPT-4: 22023 03/06/2015 Plan of Care Planned Activity Notes [...] in symptoms, worsening redness, warmth, discharge. 12/06/2018 Patient Education: Patient Medication Summary Completed [...] as indicated 11/15/2018 Appointment: Alis Muhammad WPtel: [facility] [place] [address] (15 min) Moderate 11/15/2018 Patient Education: [...] in ER 10/25/2018 Appointment: Alis Muhammad WPtel: [facility] [place] [place] [phone] (15 min) Moderate 10/25/2018 Patient Education: Patient [...] treatment 10/13/2018 Appointment: Alis Muhammad WPtel: [phone] [phone] (15 min) Moderate 10/13/2018 Patient Education: [...] Ua 09/15/2018 Appointment: Alis Muhammad WPtel: [phone] [phone] (30 min) Complex 09/15/2018 Patient Education: [...] improve 08/15/2018 Appointment: Alis Muhammad WPtel: [phone] [phone] (30 min) Complex 08/15/2018 Patient Education: Patient Medication Summary Completed 08/15/2018 Patient Education: Back Pain Completed 08/15/2018 Visit Plan: HTN-onofre induced cough-s top lisinopril -start losartan -monitor blood pressure and follow up in 2 weeks Low back pain-xray lumbar spine and refer for PT 08/01/2018 Appointment: Alis Muhammad WPtel: [phone] [phone] (15 min) Moderate 08/01/2018 Patient Education: Patient Medication Summary Completed 08/01/2018 Patient Education: Back Pain Completed 08/01/2018 Care Plan: X-RAY EXAM L-S SPINE 08/28 VWS LOINC : 28527-1 Pending 08/01/2018 Visit Plan: Hypertension - well [...] today. 04/20/2018 Appointment: Scarlett Spring WPtel: [phone] [facility] (15 min) Moderate 04/20/2018 Patient Education: [...] surrogate. 02/09/2018 Appointment: [phone] [facility] [facility] - Annual Wellness Visit 02/09/2018 Patient [...] every night. 12/16/2017 Appointment: Scarlett Spring WPtel: [facility] [place] [address] (15 min) Moderate 12/16/2017 Patient Education: [...] becoming uncontrolled. 08/23/2017 Appointment: Scarlett Spring WPtel: [facility] [place] [address] (15 min) Moderate 08/23/2017 Patient Education: [...] cardiology 02/03/2017 Appointment: Kassandra Argueta WPtel: [phone] [facility] [place] [address] - Annual Wellness Visit 02/03/2017 Patient Education: [...] at home. 02/02/2017 Appointment: Scarlett Spring WPtel: [phone] [facility] (15 min) Moderate 02/02/2017 Patient [...] improve. 11/26/2016 Appointment: Kassandra Argueta WPtel: [phone] [facility] (30 min) Complex 11/26/2016 Patient Education: [...] pain symptoms. 10/07/2016 Appointment: Scarlett Spring WPtel: [facility] [place] (15 min) Moderate 10/07/2016 Patient Education: Patient Medication Summary Completed 10/07/2016 Patient Education: Obesity Completed 10/07/2016 Patient Education: Hypertension Completed 10/07/2016 Care Plan: VASCULAR STUDY Pending 10/04/2016 Care Plan: X-RAY EXAM OF KNEE 3 [facility] : 34253-8 Pending 10/04/2016 Visit Plan: Hypertension - well [...] for paroxetine 09/16/2016 Appointment: Scarlett Spring WPtel: [facility] [place] (15 min) Moderate 09/16/2016 Patient Education: [...] not improve. 09/07/2016 Appointment: Kassandra Argueta WPtel: [facility] [place] [place] (10 min) Simple 09/07/2016 Patient [...] order 04/08/2016 Appointment: Scarlett Spring WPtel: [phone] [facility] (15 min) Moderate 04/08/2016 Patient Education: [...] days. 03/05/2016 Appointment: Scarlett Spring [facility]Ptel[facility] [phone] [facility] [place] (15 min) Moderate 03/05/2016 Patient [...] patient 12/04/2015 Appointment: Scarlett Spring WPtel[facility] [phone] [facility] [place] (15 min) Moderate 12/04/2015 Patient [...] allergy spray. 11/18/2015 Appointment: Scarlett Spring WPtel: [facility] [place] (15 min) Moderate 11/18/2015 Patient Education: Patient Medication Summary Completed 11/18/2015 Patient Education: Obesity Completed 11/18/2015 Patient Education: Hypertension Completed 11/18/2015 Appointment: Scarlett Spring WPtel: [facility] [place] (15 min) Moderate 11/07/2015 Visit [...] Visit Plan: MSSA of groin and under [id number] bactrim and call if rash does not [...] report. 08/28/2015 Appointment: Scarlett Spring [facility]Ptel[facility] [phone] [facility] (15 min) Moderate 08/28/2015 Patient Education: Patient Medication Summary Completed 08/28/2015 Care Plan: C CEM RTS Cultured from groin Pending 08/28/2015 [...] 07/09/2015 Appointment: Scarlett Spring WPtel[facility] [phone] [facility] (15 min) Moderate 07/09/2015 Patient Education: [...] not improving. 03/06/2015 Appointment: Scarlett Spring WPtel: [facility] [place] [place] (S[facility] New Patient 03/06/2015 Patient [...] will find out if anyone comes [place] UA start probiotic daily . Hypertension [...]
--- OUTSIDE RECORDS SUMMARY | 2020-01-23 14:20 | XMS REPORT | CCD ---
Author Author Jeannine Spring Organization Scarlett Spring MD, [facility] Address [address] [place] [address] Phone Care Team Providers Care Block Hacker Name Role Phone PP Unavailable CCM Unavailable Summary Purpose Interface Exchange Insurance Providers Payer name Policy type / Coverage type Covered libertarian ID Effective Begin Date Effective End Date WPS Medicare Part B Medicare Part B [id number] Unknown [employer] Medicare Part B [id number] Unkn own Family history Mother Diagnosis Age At Onset Hypertension Unknown Heart Attack Unknown Brother Diagnosis Age At Onset Heart disease Unknown Runs in the family Diagnosis Age At Onset Heart disease Unknown Daughter Diagnosis Age At Onset Heart Attack Unknown Hyperlipidemia Unknown Hypertension Unknown Social History Social History Element Codes Description Effective Dates Number of children Unknown 2 daughter lives in [place], son - does not have contact 09/16/[address]: 9670064 Quit over 10 years ago 1990 - previously smoked 2ppd x 25 years. 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 03/06/2015 Allergies, Adverse Reactions, Alerts Substance Reaction [...] mupirocin 2 % topica l ointment RxNorm: 995614 1 Application TOP BID 12/06/2018 12/19/2018 Active doxycycline hyclate 100 mg tablet RxNorm: 3985237 1 Tablet(s) PO BID 11/21/2018 11/27/2018 Inactive can exchange for capsule if cheaper doxycycline hyclate 100 mg tablet RxNorm: 4673715 1 Tablet(s) PO BID 11/21/2018 11/20/2018 Inactive simethicone 125 mg c hewable tablet RxNorm: 910312 1 Tablet(s) PO qid pr n 10/25/2018 No Stop Date Active promethazine 25 mg t ablet RxNorm: 352918 1 Tablet(s) PO Q6 PRN 10/25/2018 No Stop Date Active paroxetine 40 mg tablet RxNorm: 3016819 1 Tablet(s) PO daily 10/13/2018 04/10/2019 Active valsartan 160 mg tablet RxNorm: 394223 1 Tablet(s) PO daily 10/13/2018 04/10/2019 Active Ambien 10 mg tablet RxNorm: 908744 TAKE ONE TABLET BY MOUTH AT BEDTIME N EEDED 09/23/2018 11/21/2018 Inactive terazosin 5 mg capsule RxNorm: 928693 TAKE ONE CAPSULE BY MOUTH DAILY 09/23/2018 02/19/2019 Ac tive trazodone 50 mg tablet RxNorm: 102851 TAKE ONE TABLET BY MOUTH DAILY 09/23/2018 03/21/2019 Ac tive losartan 50 mg tablet RxNorm: 911524 1 Tablet(s) PO daily 09/15/2018 10/12/2018 Inactive omeprazole 20 mg cap marina,delayed release RxNorm: 131508 TAKE ONE CAPSULE BY M OUTH EVERY NIGHT AT BEDTIME 09/12/2018 03/10/2019 Active Keflex 500 mg capsule RxNorm: 024261 1 Capsule(s) PO TID 08/18/2018 08/17/2018 Inactive Keflex 500 mg capsule RxNorm: 764539 1 Capsule(s) PO TID 08/18/2018 08/24/2018 Inactive take probiotic while on abx paroxetine 20 mg tablet RxNorm: 9269854 TAKE ONE TABLET BY MOUTH DAILY 08/12/2018 10/12/2018 In active losartan 25 mg tablet RxNorm: 813231 1 Tablet(s) PO daily 08/01/2018 09/14/2018 Inactive losartan 25 mg tablet RxNorm: 407479 1 Tablet(s) PO daily 08/01/2018 10/12/2018 Inactive trazodone 50 mg tablet RxNorm: 894368 TAKE ONE TABLET BY MOUTH DAILY 07/25/2018 09/22/2018 In active Ambien 10 mg tablet RxNorm: 420946 Tablet(s) TAKE ONE TABLET BY MOUTH AT BE DTINE 06/24/2018 09/23/2018 Inactive trazodone 50 mg tablet RxNorm: 959223 TAKE ONE TABLET BY MOUTH DAILY 04/25/2018 07/23/2018 In active Ambien 10 mg tablet RxNorm: 688344 Tablet(s) TAKE ONE TABLET BY MOUTH AT BE DTIME 03/23/2018 06/19/2018 Inactive terazosin 5 mg capsule RxNorm: 568300 TAKE ONE CAPSULE BY MOUTH DAILY 03/14/2018 09/09/2018 In active Ambien 10 mg tablet RxNorm: 235938 Tablet(s) TAKE ONE TABLET BY MOUTH AT BE DTINE 01/18/2018 09/14/2018 Inactive trazodone 50 mg tablet RxNorm: 557397 TAKE ONE TABLET BY MOUTH ONCE DAILY 01/10/2018 03/22/2018 In active trazodone 50 mg tablet RxNorm: 835232 Tablet(s) TAKE ONE TABLET BY MOUTH ONCE DAILY 01/10/2018 04/24/2018 Inactive Ambien 10 mg tablet RxNorm: 978788 Tablet(s) TAKE ONE TABLET BY MOUTH AT DTINE 10/22/2017 01/17/2018 Inactive trazodone 50 mg tablet RxNorm: 066575 TAKE ONE TABLET BY MOUTH ONCE DAILY 10/18/2017 01/09/2018 In active omeprazole 20 mg cap marina,delayed release RxNorm: 335406 TAKE ONE CAPSULE BY M OUTH ONCE DAILY AT BEDTIME 08/27/2017 09/11/2018 Inactive trazodone 50 mg tablet RxNorm: 030219 TAKE ONE TABLET BY MOUTH ONCE DAILY 08/18/2017 10/17/2017 In active Ambien 10 mg tablet RxNorm: 881870 Tablet(s) TAKE ONE TABLET BY MOUTH AT BE DTINE 08/18/2017 03/22/2018 Inactive paroxetine 20 mg tablet RxNorm: 6260499 TAKE ONE TABLET BY MOUTH ONCE DAILY 07/27/2017 08/11/2018 In active Ambien 10 mg tablet RxNorm: 929171 Tablet(s) TAKE ONE TABLET BY MOUTH AT BE DTINE 06/23/2017 03/22/2018 Inactive omeprazole 20 mg cap marina,delayed release RxNorm: 397583 TAKE ONE CAPSULE BY M OUTH ONCE DAILY AT BEDTIME 04/23/2017 08/20/2017 Inactive trazodone 50 mg tablet RxNorm: 459598 TAKE ONE TABLET BY MOUTH ONCE DAILY 04/13/2017 08/10/2017 In active terazosin 5 mg capsule RxNorm: 580002 Capsule(s) TAKE ONE CAPSULE BY MOUTH TATA 04/08/2017 03/03/2018 In active Ambien 10 mg tablet RxNorm: 844613 Tablet(s) TAKE ONE TABLET BY MOUTH AT DTINE 02/17/2017 03/22/2018 Inactive Tylenol-Codeine #3 3 00 mg-30 mg tablet RxNorm: 656721 1 Tablet(s) PO QID as needed 02/02/2017 11/14/2018 In active metoprolol succinate ER 50 mg tablet,extended release 24 hr RxNorm: 301088 TAKE ONE TABLET BY MOUTH ONCE DAILY 12/23/2016 02/02/2017 Inactive Zithromax Z-Ted 250 mg tablet RxNorm: 067448 1 Tablet(s) PO UD 11/26/2016 02/16/2017 Inactive trazodone 50 mg tablet RxNorm: 063679 TAKE ONE TABLET BY MOUTH ONCE DAILY 11/12/2016 03/11/2017 In active Ambien 10 mg tablet RxNorm: 639706 Tablet(s) TAKE ONE TABLET BY MOUTH AT [facility] 10/22/2016 02/15/2017 Inactive paroxetine 20 mg tablet RxNorm: 4735192 1 Tablet(s) PO daily TAKE ONE TABLET BY MOUTH DAILY 09/16/2016 06/12/2017 Inactive meloxicam 7.5 mg tablet RxNorm: 030417 1 Tablet(s) PO daily 09/16/2016 11/14/2016 Inactive Protonix 40 mg table t,delayed release RxNorm: 730565 1 Tablet(s) PO daily 09/16/2016 08/22/2017 In active sucralfate 1 gram ta blet RxNorm: 154782 1 Tablet(s) PO TID 09/16/2016 08/22/2017 Inactive Ambien 10 mg tablet RxNorm: 928180 Tablet(s) TAKE ONE TABLET BY MOUTH AT BE DTINE 08/24/2016 03/22/2018 Inactive trazodone 50 mg tablet RxNorm: 708349 Tablet(s) TAKE ONE TABLET BY MOUTH DAILY 07/29/2016 11/11/2016 In active Ambien 10 mg tablet RxNorm: 224456 TAKE ONE TABLET BY MOUTH AT BEDTIME 06/23/2016 03/22/2018 In active Ambien 10 mg tablet RxNorm: 314231 Tablet(s) TAKE ONE TABLET BY MOUTH EVERY NIGHT AT BEDTIME 06/22/2016 06/23/2016 Inactive Lasix 40 mg tablet RxNorm: 599705 1 Tablet(s) PO daily as needed for swell ing 04/03/2016 09/15/2016 In active potassium chloride E R 20 mEq tablet,extended release RxNorm: 012263 1 Tablet(s) PO daily for swelling take with lasix as needed 04/03/2016 09/15/2016 Inactive Ambien 10 mg tablet RxNorm: 414760 Tablet(s) TAKE ONE TABLET BY MOUTH EVERY NIGHT AT BEDTIME 04/03/2016 03/22/2018 Inactive omeprazole 20 mg cap amrina,delayed release RxNorm: 806523 TAKE ONE CAPSULE BY M OUTH EVERY NIGHT AT BEDTIME 03/31/2016 09/15/2016 Inactive paroxetine 20 mg tablet RxNorm: 2114171 TAKE ONE TABLET BY MOUTH DAILY 03/31/2016 09/15/2016 In active trazodone 50 mg tablet RxNorm: 491336 TAKE ONE TABLET BY MOUTH DAILY 03/20/2016 07/28/2016 In active terazosin 5 mg capsule RxNorm: 246727 TAKE ONE CAPSULE BY MOUTH DAILY 03/06/2016 10/06/2016 In active Ambien 10 mg tablet RxNorm: 282984 Tablet(s) TAKE ONE TABLET BY MOUTH EVERY NIGHT AT BEDTIME 01/17/2016 04/02/2016 Inactive loratadine 10 mg tablet RxNorm: 408196 1 Tablet(s) PO daily 01/15/2016 09/15/2016 Inactive mupirocin 2 % topica l ointment RxNorm: 986694 1 Application TOP TID 11/18/2015 12/01/2015 Inactive metoprolol succinate ER 50 mg tablet,extended release 24 hr RxNorm: 496129 1 Tablet(s) PO daily 11/18/2015 11/11/2016 Inactive loratadine 10 mg tablet RxNorm: 628844 1 Tablet(s) PO daily 11/18/2015 01/14/2016 Inactive Lasix 40 mg tablet RxNorm: 133049 1 Tablet(s) PO daily as needed for swell ing 10/30/2015 11/28/2015 In active potassium chloride E R 20 mEq tablet,extended release RxNorm: 652297 1 Tablet(s) PO daily for swelling take with lasix as needed 10/30/2015 11/28/2015 Inactive Tylenol-Codeine #3 3 00 mg-30 mg tablet RxNorm: 507851 1 Tablet(s) PO QID as needed 10/25/2015 02/01/2017 In active Ambien 10 mg tablet RxNorm: 311073 Tablet(s) TAKE ONE TABLET BY MOUTH EVERY NIGHT AT BEDTIME 10/18/2015 03/22/2018 Inactive Diflucan 150 mg tablet RxNorm: 020661 1 Tablet(s) PO daily 10/01/2015 12/03/2015 Inactive Lasix 20 mg tablet RxNorm: 443530 1 Tablet(s) PO PRN fror swelling 09/27/2015 10/29/2015 In active potassium chloride E R 10 mEq capsule,extended release RxNorm: 851648 1 Capsule(s) PO PRN for swelling take with lasix 09/27/2015 10/29/2015 Inactive Bactrim DS 800 mg-16 0 mg tablet RxNorm: 381783 1 Tablet(s) PO BID 09/02/2015 09/11/2015 Inactive Bactrim DS 800 mg-16 0 mg tablet RxNorm: 114835 1 Tablet(s) PO BID 09/02/2015 09/01/2015 Inactive nystatin 100,000 uni t/gram topical cream RxNorm: 209613 1 Gram(s) TOP TID 08/28/2015 09/26/2015 In active Diflucan 150 mg tablet RxNorm: 590872 1 Tablet(s) PO daily 08/28/2015 09/06/2015 Inactive betamethasone diprop ionate 0.05 % topical ointment RxNorm: 410859 1 Application TOP TID to affected area 08/02/2015 02/01/2017 Inactive nystatin 100,000 uni t/gram topical powder RxNorm: 995824 1 Gram(s) TOP QID 07/09/2015 08/01/2015 In active Ambien 10 mg tablet RxNorm: 880267 1 Tablet(s) PO QHS 06/19/2015 06/18/2015 Inactive Ambien 10 mg tablet RxNorm: 826970 TAKE ONE TABLET BY MOUTH EVERY NIGHT AT BEDTIME 06/19/2015 09/16/2015 Inactive Vitamin D2 50,000 un it capsule RxNorm: 330328 1 Capsule(s) PO QW 03/07/2015 03/06/2015 Inactive Vitamin D2 50,000 un it capsule RxNorm: 994727 1 Capsule(s) PO QW 03/07/2015 05/05/2015 Inactive terazosin 5 mg capsule RxNorm: 093008 1 Capsule(s) PO daily 03/06/2015 02/28/2016 Inactive [SAVINGS FOR NON-COVERED DRUGS -- BIN:00 [id number], PCN: [id number], Group: XXXXX, ID# XXXXXXX, Questions: . THIS IS NOT INSURANCE.] trazodone 50 mg tablet RxNorm: 943734 1 Tablet(s) PO daily 03/06/2015 02/28/2016 Inactive paroxetine 20 mg tablet RxNorm: 8044497 1 Tablet(s) PO daily 03/06/2015 02/28/2016 Inactive Tylenol-Codeine #3 3 00 mg-30 mg tablet RxNorm: 949008 1 Tablet(s) PO QID as needed 03/06/2015 07/02/2015 In active amlodipine 10 mg tablet RxNorm: 030976 1 Tablet(s) PO daily 03/06/2015 11/17/2015 Inactive metoprolol succinate ER 25 mg tablet,extended release 24 hr RxNorm: 463561 1 Tablet(s) PO daily 03/06/2015 11/17/2015 Inactive omeprazole 20 mg cap marina,delayed release RxNorm: 967782 1 Capsule(s) PO QHS 03/06/2015 02/28/2016 In active omeprazole 20 mg cap marina,delayed release RxNorm: 752956 1 Capsule(s) PO QHS 01/31/2015 01/30/2015 In active omeprazole 20 mg cap marina,delayed release RxNorm: 095679 1 Capsule(s) PO QHS 01/31/2015 01/30/2015 In active omeprazole 20 mg cap marina,delayed release RxNorm: 861650 1 Capsule(s) PO QHS 01/31/2015 03/05/2015 In active Ambien 10 mg tablet RxNorm: 658431 1 Tablet(s) PO QHS 12/25/2014 04/21/2015 Inactive paroxetine 20 mg tablet RxNorm: 869039 1 Tablet(s) PO daily 12/25/2014 12/24/2014 Inactive Ambien 10 mg tablet RxNorm: 994397 1 Tablet(s) PO QHS 12/25/2014 12/24/2014 Inactive paroxetine 20 mg tablet RxNorm: 141036 1 Tablet(s) PO daily 12/25/2014 03/05/2015 Inactive terazosin 5 mg capsule RxNorm: 442393 1 Capsule(s) PO daily 11/23/2014 03/05/2015 Inactive [SAVINGS FOR NON-COVERED DRUGS -- BIN:00 3908, PCN: [id number], Group: XXXXX, ID# [id number], Questions: . THIS IS NOT INSURANCE.] terazosin 5 mg capsule RxNorm: 463276 1 Capsule(s) PO daily 11/23/2014 11/22/2014 Inactive Lasix 20 mg tablet RxNorm: 511383 1 Tablet(s) PO daily No Start Date Active K-Dur 10 mEq tablet, extended release RxNorm: 081291 1 Tablet(s) PO daily No Start Date Active hydrochlorothiazide 25 mg tablet RxNorm: 669094 1 Tablet(s) PO daily No Start Date Active Vitamin D3 2,000 uni t tablet RxNorm: 770953 1 Tablet(s) PO daily No Start Date Active amiodarone 200 mg ta blet RxNorm: 920097 1 Tablet(s) PO BID No Start Date Active Zetia 10 mg tablet RxNorm: 352961 1 Tablet(s) PO daily No Start Date Active Lipitor 80 mg tablet RxNorm: 012732 1/2 Tablet(s) PO daily No Start Date Active Coumadin 4 mg tablet RxNorm: 228825 1 Tablet(s) PO daily No Start Date Active metoprolol succinate ER 25 mg tablet,extended release 24 hr RxNorm: 796402 1 Tablet(s) PO daily No Start Date 03/05/2015 Inactive Entresto 49 mg-51 mg tablet RxNorm: 5989550 1 Tablet(s) PO BID No Start Date 04/19/2018 Inactive sotalol 80 mg tablet RxNorm: 5654529 1 Tablet(s) PO BID No Start Date 04/19/2018 Inactive betamethasone diprop ionate 0.05 % topical ointment RxNorm: 906620 1 Application TOP TID to affected area No Start Date 08/01/2015 Inactive trazodone 50 mg tablet RxNorm: 878084 1 Tablet(s) PO daily No Start Date 03/05/2015 Inactive potassium chloride E R 10 mEq capsule,extended release RxNorm: 928517 1 Capsule(s) PO PRN for swelling take with lasix No Start Date 09/26/2015 Inactive Eliquis 5 mg tablet RxNorm: 6107968 1 Tablet(s) PO BID No Start Date 09/14/2018 Inactive amlodipine 10 mg tablet RxNorm: 167123 1 Tablet(s) PO daily No Start Date 03/05/2015 Inactive isosorbide mononitra te ER 30 mg tablet,extended release 24 hr RxNorm: 220235 1 Tablet(s) PO daily No Start Date 08/22/2017 Inactive aspirin 81 mg tablet ,delayed release RxNorm: 362174 1 Tablet(s) PO daily No Start Date 02/02/2017 Inactive Lasix 20 mg tablet RxNorm: 498176 1 Tablet(s) PO PRN fror swelling No Start Date 09/26/2015 Inactive lisinopril 5 mg tablet RxNorm: 999337 1 Tablet(s) PO daily No Start Date 07/31/2018 Inactive Crestor 40 mg tablet RxNorm: 574463 1 Tablet(s) PO daily No Start Date 09/15/2016 Inactive metoprolol succinate ER 100 mg tablet,extended release 24 hr RxNorm: 304156 1 Tablet(s) PO daily No Start Date [...] sent to ref lab 11/16/2018 Culture Urine [id number] URI NE CULTURE SEE NOTES 08/22/2018 Culture Urine [id number] Con tinued Results 08/22/2018 Urine Culture Ucult Comp lete >100,000 col/ml aerobic grow th sent to ref lab 08/19/2018 Comp Metabolic Dxa350 NA 140 mEq/L 08/01/2018 Comp Metabolic Yjz366 K 4.2 mEq/L 08/01/2018 Comp Metabolic Rri457 CL 102 mEq/L 08/01/2018 Comp Metabolic Mbs770 CO2 27.0 mEq/L 08/01/2018 Comp Metabolic Zjp124 AN ION GAP 15 08/01/2018 Comp Metabolic Ymv665 GL UCOSE 107 mg/dL 08/01/2018 Comp Metabolic Dif228 Cr eat 1.0 mg/dL 08/01/2018 Comp Metabolic Snv240 eG FR 58 ml/min/1.73m2 08/01 Comp Metabolic Smt648 BUN 10 mg/dL 08/01/2018 Comp Metabolic Swt853 B/ C Ratio 10.0 Ratio 08/01/2018 Comp Metabolic Src987 CA LCIUM 8.9 mg/dL 08/01/2018 Comp Metabolic Ykz361 AL K PHOS 68 U/L 08/01/2018 Comp Metabolic Fcm554 T(SGOT) 18 U/L 08/01/2018 Comp Metabolic Rny346 AL T(SGPT) 14 U/L 08/01/2018 Comp Metabolic Xyi062 BI LI T 0.5 mg/dL 08/01/2018 Comp Metabolic Oow072 AL BUMIN 4.0 g/dL 08/01/2018 Comp Metabolic Jnn078 TP RO 6.3 g/dL 08/01/2018 Comp Metabolic Wih331 GL OB 2.3 g/dL 08/01/2018 Comp Metabolic Zud390 A/ G Ratio 1.7 Ratio 08/01/2018 Comp Metabolic Aik956 Os mo 279 mOsmo 08/01/2018 Tsh Ord6 [...] 27.3 pg 08/01/2018 Cbc With Differential Ord2 [place]% 9.8 % 08/01/2018 Cbc With Differential Ord2 [...] 0.79 K/ul 08/01/2018 Cbc With Differential Ord2 [place] ABS# 0.4 K/ul 08/01/2018 Cbc With Differential Ord2 Eos ABS# 0.1 K/ul 08/01/2018 Cbc With Differential Ord2 Baso ABS# 0.0 K/ul 08/01/2018 Lipid Ord30 CHOL 234 mg/dL 08/01/2018 Lipid Ord30 HDL 69.0 mg/dl 08/01/2018 Lipid Ord30 TRIG 57 mg/dL 08/01/2018 Lipid Ord30 LDL 154 mg/dL 08/01/2018 Lipid Ord30 C/HDL 3.4 Ratio 08/01/2018 Comp Metabolic Ffb193 NA 137 mEq/L 09/30/2015 Comp Metabolic Tck797 K 4.5 mEq/L 09/30/2015 Comp Metabolic Ocu978 CL 102 mEq/L 09/30/2015 Comp Metabolic Unx840 CO2 26.0 mEq/L 09/30/2015 Comp Metabolic Lkb982 AN ION GAP 14 09/30/2015 Comp Metabolic Yuo065 GL UCOSE 89 mg/dL 09/30/2015 Comp Metabolic Kvt367 Cr eat 0.8 mg/dL 09/30/2015 Comp Metabolic Vgu734 eG FR 79 ml/min/1.73m2 09/29 Comp Metabolic Ric202 BUN 14 mg/dL 09/30/2015 Comp Metabolic Ypb728 B/ C Ratio 18.2 Ratio 09/30/2015 Comp Metabolic Kou680 CA LCIUM 8.9 mg/dL 09/30/2015 Comp Metabolic Aof434 AL K PHOS 65 U/L 09/30/2015 Comp Metabolic Chd190 T(SGOT) 26 U/L 09/30/2015 Comp Metabolic Eqq206 AL T(SGPT) 18 U/L 09/30/2015 Comp Metabolic Eew748 BI LI T 0.6 mg/dL 09/30/2015 Comp Metabolic Apz999 AL BUMIN 3.8 g/dL 09/30/2015 Comp Metabolic Yws444 TP RO 6.6 g/dL 09/30/2015 Comp Metabolic Lbo089 GL OB 2.8 g/dL 09/30/2015 Comp Metabolic Uow061 A/ G Ratio 1.4 Ratio 09/30/2015 Comp Metabolic Kac742 Os mo 274 mOsmo 09/30/2015 Cbc With [...] 27.7 pg 09/30/2015 Cbc With Differential Ord2 [place]% 10.7 % 09/30/2015 Cbc With Differential Ord2 [...] 1.10 K/ul 09/30/2015 Cbc With Differential Ord2 [place] ABS# 0.6 K/ul 09/30/2015 Cbc With Differential Ord2 Eos ABS# 0.2 K/ul 09/30/2015 Cbc With Differential Ord2 Baso ABS# 0.0 K/ul 09/30/2015 Cbc With Differential Ord2 New Analyzer Notice Please note new ref ranges s tarting 08-07-2015 due to implemntation of new five part differential hematolgy analyzer. 09/30/2015 Tsh Ord6 hTSH II 1.05 uIU/mL 03/06/2015 Comp Metabolic Nss078 NA 137 mEq/L 03/06/2015 Comp Metabolic Owl492 K 4.3 mEq/L 03/06/2015 Comp Metabolic Ttb797 CL 104 mEq/L 03/06/2015 Comp Metabolic Rxv077 CO2 28.0 mEq/L 03/06/2015 Comp Metabolic Vto650 AN ION GAP 9 03/06/2015 Comp Metabolic Ure534 GL UCOSE 93 mg/dL 03/06/2015 Comp Metabolic Gbw195 Cr eat 0.8 mg/dL 03/06/2015 Comp Metabolic Ihj863 eG FR 81 ml/min/1.73m2 03/06 Comp Metabolic Upd414 BUN 12 mg/dL 03/06/2015 Comp Metabolic Etw990 B/ C Ratio 16.0 Ratio 03/06/2015 Comp Metabolic Wft313 CA LCIUM 8.9 mg/dL 03/06/2015 Comp Metabolic Lnq111 AL K PHOS 56 U/L 03/06/2015 Comp Metabolic Jou283 T(SGOT) 22 U/L 03/06/2015 Comp Metabolic Bfs125 AL T(SGPT) 15 U/L 03/06/2015 Comp Metabolic Hcy340 BI LI T 0.4 mg/dL 03/06/2015 Comp Metabolic Mwt247 AL BUMIN 4.0 g/dL 03/06/2015 Comp Metabolic Noi573 TP RO 6.5 g/dL 03/06/2015 Comp Metabolic Vsd817 GL OB 2.5 g/dL 03/06/2015 Comp Metabolic Ubx745 A/ G Ratio 1.6 Ratio 03/06/2015 Comp Metabolic Erq655 Os mo 273 mOsmo 03/06/2015 Vitamin D 25 Oh Jhf1319 VITAMIN D, 25 HYDROXY 28.14 ng/mL 03/06/2015 [...] Date URINALYSIS NONAUTO W /O SCOPE CPT-4: 91617 12/06/2018 URINALYSIS NONAUTO W /O SCOPE CPT-4: 26214 11/15/2018 URINALYSIS NONAUTO W /O SCOPE CPT-4: 00314 08/18/2018 ADMIN INFLUENZA VIRU S VAC CPT-4: G0008 04/20/2018 FLU VACC PRSV FREE I NC ANTIG Formatting Model/CDA Sections, Assigned to/Amparo Mims CPT-4: 82152Ybisrvx 04/20/2018 PPPS, SUBSEQ VISIT CPT- 4: G0439 02/09/2018 PPPS, SUBSEQ VISIT CPT- 4: G0439 02/03/2017 ADMIN INFLUENZA VIRU S VAC CPT-4: G0008 04/08/2016 ADMIN PNEUMOCOCCAL V ACCINE SNOMED CT: 26570806 CPT-4: G0009 04/08/2016 PNEUMOCOCCAL VACC [address]: 30346377 CPT-4: 68034 04/08/2016 FLU VACC PRSV FREE I NC ANTIG CPT-4: 11205 04/08/2016 Vital Signs Date Vital 12/06/2018 Blood Pressure 1: 118/70 Code: 8480-6 BMI: 41.5 Code: 96976-7 Heart Rate 1: 97 bpm Height: 5'7" SpO2: 96% Weight: 265 lbs 11/15/2018 Blood Pressure 1: 144/76 Code: 8480-6 BMI: 42.3 Code: 75814-0 Heart Rate 1: 82 bpm Height: 5'7" SpO2: 96% Weight: 270 lbs 10/25/2018 Blood Pressure 1: 128/80 Code: 8480-6 BMI: 42.0 Code: 34021-1 Heart Rate 1: 93 bpm Height: 5'7" SpO2: 95% Weight: 268 lbs 10/13/2018 Blood Pressure 1: 162/76 Code: 8480-6 BMI: 42.0 Code: 47706-9 Heart Rate 1: 71 bpm Height: 5'7" SpO2: 96% Weight: 268 lbs 09/15/2018 Blood Pressure 1: 154/86 Code: 8480-6 BMI: 42.9 Code: 62445-4 Heart Rate 1: 88 bpm Height: 5'7" SpO2: 94% Weight: 274 lbs 08/15/2018 Blood Pressure 1: 140/90 Code: 8480-6 BMI: 40.7 Code: 34360-0 Heart Rate 1: 70 bpm Height: 5'7" SpO2: 93% Weight: 260 lbs 08/01/2018 Blood Pressure 1: 130/70 Code: 8480-6 BMI: 40.7 Code: 47028-4 Heart Rate 1: 80 bpm Height: 5'7" SpO2: 93% Weight: 260 lbs 04/20/2018 Blood Pressure 1: 128/68 Code: 8480-6 BMI: 41.7 Code: 31428-1 Heart Rate 1: 85 bpm Height: 5'7" SpO2: 94% Weight: 266 lbs 02/09/2018 Blood Pressure 1: 118/70 Code: 8480-6 BMI: 42.1 Code: 09528-1 Heart Rate 1: 58 bpm Height: 5'7" SpO2: 94% Weight: 269 lbs 12/16/2017 Blood Pressure 1: 132/86 Code: 8480-6 BMI: 42.7 Code: 12843-1 Heart Rate 1: 63 bpm Height: 5'7" SpO2: 94% Weight: 272 lbs 14 o z 08/23/2017 Blood Pressure 1: 150/82 Code: 8480-6 BMI: 42.0 Code: 23980-4 Heart Rate 1: 66 bpm Height: 5'7" SpO2: 96% Weight: 268 lbs 02/03/2017 Blood Pressure 1: 138/72 Code: 8480-6 BMI: 41.2 Code: 65907-4 Heart Rate 1: 96 bpm Height: 5'7" SpO2: 97% Weight: 263 lbs 02/02/2017 Blood Pressure 1: 140/90 Code: 8480-6 BMI: 41.2 Code: 13768-2 Heart Rate 1: 103 bpm Height: 5'7" SpO2: 94% Weight: 263 lbs 11/26/2016 Blood Pressure 1: 152/88 Code: 8480-6 BMI: 41.0 Code: 55765-8 Heart Rate 1: 71 bpm Height: 5'7" SpO2: 94% Temperature: 37.7 (C ) / 99.8 (F) Weight: 262 lbs 10/07/2016 Blood Pressure 1: 148/82 Code: 8480-6 BMI: 41.7 Code: 20987-5 Heart Rate 1: 58 bpm Height: 5'7" SpO2: 96% Weight: 266 lbs 09/16/2016 Blood Pressure 1: 122/70 Code: 8480-6 BMI: 42.0 Code: 19485-1 Heart Rate 1: 65 bpm Height: 5'7" SpO2: 96% Weight: 268 lbs 09/07/2016 Blood Pressure 1: 154/60 Code: 8480-6 BMI: 42.3 Code: 13339-6 Heart Rate 1: 101 bpm Height: 5'7" SpO2: 97% Weight: 270 lbs 04/08/2016 Blood Pressure 1: 128/70 Code: 8480-6 BMI: 41.4 Code: 41246-2 Heart Rate 1: 62 bpm Height: 5'7" SpO2: 95% Weight: 264 lbs 8 oz 03/05/2016 Blood Pressure 1: 144/78 Code: 8480-6 Blood Pressure 1: 139/72 Code: 8480-6 BMI: 41.9 Code: 46340-7 Heart Rate 1: 71 bpm Height: 5'7" SpO2: 93% Weight: 267 lbs 8 oz 12/04/2015 Blood Pressure 1: 132/70 Code: 8480-6 BMI: 41.3 Code: 81191-4 Heart Rate 1: 56 bpm Height: 5'7" SpO2: 96% Weight: 264 lbs 11/18/2015 Blood Pressure 1: 138/72 Code: 8480-6 BMI: 41.0 Code: 86606-6 Heart Rate 1: 85 bpm Height: 5'7" SpO2: 93% Weight: 262 lbs 09/30/2015 Blood Pressure 1: 128/76 Code: 8480-6 BMI: 41.2 Code: 43618-8 Heart Rate 1: 70 bpm Height: 5'7" SpO2: 93% Weight: 263 lbs 09/09/2015 Blood Pressure 1: 138/80 Code: 8480-6 BMI: 40.3 Code: 01467-3 Heart Rate 1: 84 bpm Height: 5'7" SpO2: 95% Weight: 257 lbs 08/28/2015 Blood Pressure 1: 122/72 Code: 8480-6 BMI: 39.6 Code: 18974-9 Heart Rate 1: 75 bpm Height: 5'7" SpO2: 96% Weight: 253 lbs 07/09/2015 Blood Pressure 1: 140/78 Code: 8480-6 Blood Pressure 1: 135/78 Code: 8480-6 BMI: 39.5 Code: 77859-0 Heart Rate 1: 62 bpm Height: 5'7" SpO2: 95% Weight: 252 lbs 03/06/2015 Blood Pressure 1: 142/88 Code: 8480-6 BMI: 39.3 Code: 17988-1 Heart Rate 1: 65 bpm Height: 5'7" [...] 09/16/2016 None low back pain Quality ac [place] 09/16/2016 None low back pain Onset and [...] Encounters Encounter Performer Loca tion Codes Date ([id number]) [id number] EST. P ATIENT, LEVEL IV Diagnosis: Localized edema[ICD10: R60.0] Diagnosis: Dysuria[ICD10: R30.0] Diagnosis: Cellulitis of abdominal wall[ICD10: L03.311] Alis Spring MD, [facility] CPT-4: 80578 12/06/2018 ([id number]) [id number] EST. P ATIENT, LEVEL III Diagnosis: Dysuria[ICD10: R30.0] Diagnosis: Essential (primary) hypertension[ICD10: I10] Diagnosis: Major depressive disorder, recurrent, moderate[ICD10: F33.1] Alis Spring MD, [facility] CPT-4: 20019 11/15/2018 ([id number]) [id number] EST. P ATIENT, LEVEL IV Diagnosis: Eructation[ICD10: R14.2] Diagnosis: Nausea[ICD10: R11.0] Diagnosis: Chest pain, unspecified[ICD10: R07.9] Diagnosis: Diarrhea, unspecified[ICD10: R19.7] Alis Spring MD, [facility] CPT-4: 54845 10/25/2018 ([id number]) 97213 EST. P ATIENT, LEVEL IV Diagnosis: Essential (primary) hypertension[ICD10: I10] Diagnosis: Low back pain[ICD10: M54.5] Diagnosis: Major depressive disorder, recurrent, moderate[ICD10: F33.1] [facility] CPT-4: 91037 10/13/2018 ([id number]) [id number] EST. P ATIENT, LEVEL IV Diagnosis: Essential (primary) hypertension[ICD10: I10] Diagnosis: Dysuria[ICD10: R30.0] Diagnosis: Low back pain[ICD10: M54.5] Alis Spring MD, [facility] CPT- 4: 93435 09/15/2018 ([id number]) 55666 EST. P ATIENT, LEVEL III Diagnosis: Essential (primary) hypertension[ICD10: I10] Diagnosis: Low back pain[ICD10: M54.5] Alis Spring MD, [facility] CPT- 4: 50128 08/15/2018 ([id number]) 72250 EST. P ATIENT, LEVEL III Diagnosis: Essential (primary) hypertension[ICD10: I10] Diagnosis: Cough[ICD10: R05] Diagnosis: Low back pain[ICD10: M54.5] Alis Spring MD, [facility] CPT- 4: 77970 08/01/2018 ([id number]) 49309 EST. P ATIENT, LEVEL IV Diagnosis: Encounter for immunization[ICD10: Z23] Diagnosis: Essential (primary) hypertension[ICD10: I10] Diagnosis: Chronic atrial fibrillation[ICD10: I48.2] Diagnosis: Major depressive disorder, recurrent, mild[ICD10: F33.0] Scarlett Spring MD, C CPT-4: 60284 04/20/2018 ([id number]) 56013 EST. P ATIENT, LEVEL IV Diagnosis: Essential (primary) hypertension[ICD10: I10] Diagnosis: Obstructive sleep apnea (adult) (pediatric)[ICD10: G47.33] Diagnosis: Chronic atrial fibrillation[ICD10: I48.2] Scarlett Spring MD, C CPT-4: 97698 12/16/2017 ([id number]) 41426 EST. P ATIENT, LEVEL IV Diagnosis: Essential (primary) hypertension[ICD10: I10] Diagnosis: Chronic atrial fibrillation[ICD10: I48.2] Scarlett Spring MD, C CPT-4: 91243 08/23/2017 ([id number]) 07043 EST. P ATIENT, LEVEL IV Diagnosis: Paroxysmal atrial fibrillation[ICD10: I48.0] Diagnosis: Essential (primary) hypertension[ICD10: I10] Scarlett Spring MD, C CPT-4: 67062 02/02/2017 79732 EST. PATIENT, LEVEL III Diagnosis: Acute laryngopharyngitis[ICD10: J06.0] Diagnosis: Cough[ICD10: R05] Diagnosis: Pleurodynia[ICD10: R07.81] Diagnosis: Other dorsalgia[ICD10: M54.89] Kassandra Spring MD, [facility] CPT-4: 52980 11/26/2016 ([id number]) 27470 EST. P ATIENT, LEVEL IV Diagnosis: Essential (primary) hypertension[ICD10: I10] Diagnosis: Pain in left knee[ICD10: M25.562] Diagnosis: Low back pain[ICD10: M54.5] Diagnosis: Major depressive disorder, recurrent, moderate[ICD10: F33.1] Scarlett Spring MD, [facility] CPT-4: 25702 10/07/2016 ([id number]) 69094 EST. P ATIENT, LEVEL IV Diagnosis: Essential (primary) hypertension[ICD10: I10] Diagnosis: Rash and other nonspecific skin eruption[ICD10: R21] Diagnosis: Major depressive disorder, recurrent, mild[ICD10: F33.0] Scarlett Spring MD, [facility] CPT-4: 60475 09/16/2016 56174 EST. PATIENT, LEVEL IV Diagnosis: Pain in left lower leg[ICD10: M79.662] Diagnosis: Pain in left knee[ICD10: M25.562] Kassandra Spring MD, [facility] CPT-4: 07434 09/07/2016 ([id number]) 44266 EST. P ATIENT, LEVEL IV Diagnosis: Encounter for immunization[ICD10: Z23] Diagnosis: Essential (primary) hypertension[ICD10: I10] Diagnosis: Mixed hyperlipidemia[ICD10: E78.2] Scarlett Spring MD, [facility] CPT- 4: 09140 04/08/2016 ([id number]) 53901 EST. P ATIENT, LEVEL III Diagnosis: Essential (primary) hypertension[ICD10: I10] Diagnosis: Shortness of breath[ICD10: R06.02] [facility] CPT- 4: 48311 03/05/2016 ([id number]) 52315 EST. P ATIENT, LEVEL III Diagnosis: Chronic obstructive pulmonary disease, unspecified[ICD10: J44.9] Scarlett Spring MD, [facility] CPT-4: 35435 12/04/2015 ([id number]) 00819 EST. P ATIENT, LEVEL IV Diagnosis: Essential (primary) hypertension[ICD10: I10] Diagnosis: Allergic rhinitis due to pollen[ICD10: J30.1] Scarlett Spring MD C CPT-4: 58520 11/18/2015 ([id number]) 69099 EST. P ATIENT, LEVEL IV Diagnosis: Localized edema[ICD10: R60.0] Diagnosis: Dysuria[ICD10: R30.0] Diagnosis: Essential (primary) hypertension[ICD10: I10] Diagnosis: Nausea[ICD10: R11.0] Alis Spring MD, [facility] CPT-4: 89103 09/30/2015 ([id number]) 69591 EST. P ATIENT, LEVEL II Diagnosis: Methicillin susceptible Staphylococcus aureus infection as the cause of diseases classified elsewhere[ICD10: B95.61] Diagnosis: Methicillin susceptible Staphylococcus aureus infection, unspecified site[ICD10: A49.01] Alis Spring MD, [facility] CPT-4: 60390 09/09/2015 ([id number]) 56899 EST. P ATIENT, LEVEL III Diagnosis: Dermatophytosis, unspecified[ICD10: B35.9] Diagnosis: Rash and other nonspecific skin eruption[ICD10: R21] Scarlett Spring MD [facility] CPT-4: 39063 08/28/2015 ([id number]) 50924 EST. P ATIENT, LEVEL IV Diagnosis: Essential (primary) hypertension[ICD10: I10] Diagnosis: Gastro-esophageal reflux disease without esophagitis[ICD10: K21.9] Diagnosis: Other dorsalgia[ICD10: M54.89] Scarlett Spring MD, [facility] CPT-4: 19055 07/09/2015 ([id number]) [facility] - LEVEL 4 Diagnosis: ESSENTIAL HYPERTENSION[ICD9: 401.9] Diagnosis: Osteoporosis[ICD9: 733.00] Diagnosis: Back pain[ICD9: 724.5] Diagnosis: Insomnia[ICD9: 780.52] Diagnosis: ESOPHAGEAL REFLUX[ICD9: 530.81] Scarlett Spring MD, [facility] CPT-4: 15869 03/06/2015 Plan of Care Planned Activity Notes [...] as indicated 11/15/2018 Appointment: Alis Muhammad WPtel: [facility] [address] (15 min) Moderate 11/15/2018 Patient Education: [...] in ER 10/25/2018 Appointment: Alis Muhammad WPtel: [facility] [place] [phone] (15 min) Moderate 10/25/2018 Patient Education: Patient [...] treatment 10/13/2018 Appointment: Alis Muhammad WPtel: [phone] [phone] (15 min) Moderate 10/13/2018 [...] Ua 09/15/2018 Appointment: Alis Muhammad WPtel: [phone] [phone] (30 min) Complex 09/15/2018 Patient Education: Patient [...] improve 08/15/2018 Appointment: Alis Muhammad WPtel: [phone] [phone] (30 min) Complex 08/15/2018 Patient Education: Patient Medication Summary Completed 08/15/2018 Patient Education: Back Pain Completed 08/15/2018 Visit Plan: HTN-onofre induced cough-s top lisinopril -start losartan -monitor blood pressure and follow up in 2 weeks Low back pain-xray lumbar spine and refer for PT 08/01/2018 Appointment: Alis Muhammad WPtel: [phone] [phone] (15 min) Moderate 08/01/2018 Patient Education: Patient Medication Summary Completed 08/01/2018 Patient Education: Back Pain Completed 08/01/2018 Care Plan: X-RAY EXAM L-S SPINE 08/28 VWS LOINC : 19889-1 Pending 08/01/2018 Visit Plan: Hypertension - well [...] 04/20/2018 Appointment: Scarlett Spring WPtel: [phone] [facility] (15 min) Moderate 04/20/2018 Patient Education: [...] surrogate. 02/09/2018 Appointment: [facility]gu[phone] [facility] - Annual Wellness Visit 02/09/2018 [...] every night. 12/16/2017 Appointment: Scarlett Spring WPtel: [facility] (15 min) Moderate 12/16/2017 Patient Education: [...] becoming uncontrolled. 08/23/2017 Appointment: Scarlett Spring WPtel: [facility] (15 min) Moderate 08/23/2017 Patient Education: [...] cardiology 02/03/2017 Appointment: Kassandra Argueta WPtel: [phone] [phone] [place] [address] - Annual Wellness Visit 02/03/2017 Patient Education: [...] home. 02/02/2017 Appointment: Scarlett Spring WPtel: [phone] [facility] (15 min) Moderate 02/02/2017 Patient [...] not improve. 11/26/2016 Appointment: Kassandra Argueta WPtel: [phone] [phone] (30 min) Complex 11/26/2016 [...] pain symptoms. 10/07/2016 Appointment: Scarlett Spring WPtel[facility] (15 min) Moderate 10/07/2016 Patient Education: Patient Medication Summary Completed 10/07/2016 Patient Education: Obesity Completed 10/07/2016 Patient Education: Hypertension Completed 10/07/2016 Care Plan: VASCULAR STUDY Pending 10/04/2016 Care Plan: X-RAY EXAM OF KNEE 3 [facility] : 46815-2 Pending 10/04/2016 Visit Plan: Hypertension - well [...] for paroxetine 09/16/2016 Appointment: Scarlett Spring WPtel: [facility] (15 min) Moderate 09/16/2016 Patient Education: [...] not improve. 09/07/2016 Appointment: Kassandra Argueta WPtel: [facility] [place] [place] (10 min) Simple 09/07/2016 Patient Education: [...] order 04/08/2016 Appointment: Scarlett Spring WPtel: [phone] [facility] (15 min) Moderate 04/08/2016 Patient Education: [...] days. 03/05/2016 Appointment: Scarlett Spring [facility]Ptel[phone] [place] (15 min) Moderate 03/05/2016 Patient [...] patient 12/04/2015 Appointment: Scarlett Spring [facility]Ptel[phone] [place] (15 min) Moderate 12/04/2015 Patient [...] allergy spray. 11/18/2015 Appointment: Scarlett Spring WPtel: [facility] (15 min) Moderate 11/18/2015 Patient Education: Patient Medication Summary Completed 11/18/2015 Patient Education: Obesity Completed 11/18/2015 Patient Education: Hypertension Completed 11/18/2015 Appointment: Scarlett Spring WPtel: [facility] (15 min) Moderate 11/07/2015 Visit [...] Visit Plan: MSSA of groin and under kmlmhet-dtsojipva-bhehzf bactrim and call if rash does not [...] report. 08/28/2015 Appointment: Scarlett Spring [facility]Ptel[phone] (15 min) Moderate 08/28/2015 Patient Education: [...] improving. 07/09/2015 Appointment: Scarlett Spring [facility]Ptel[phone] (15 min) Moderate 07/09/2015 Patient Education: [...] not improving. 03/06/2015 Appointment: Scarlett Spring WPtel: [facility] [place] (S) New Patient 03/06/2015 Patient [...] will find out if anyone comes to [place] check UA start probiotic daily . Hypertension [...]
--- OUTSIDE RECORDS SUMMARY | 2020-01-23 14:21 | XMS REPORT | CCD ---
Author Author Jeannine Spring Organization Scarlett Spring MD, [facility] Address [address] [place] [address] Phone Care Team Providers Care Residential Concierge Name Role Phone PP Unavailable CCM Unavailable Summary Purpose Interface Exchange Insurance Providers Payer name Policy type / Coverage type Covered green party ID Effective Begin Date Effective End Date WPS Medicare Part B Medicare Part B [id number] Unknown [place] [facility] [employer] Medicare Part B [id number] Unkn own Family history Mother Diagnosis Age At Onset Hypertension Unknown Heart Attack Unknown Brother Diagnosis Age At Onset Heart disease Unknown Runs in the family Diagnosis Age At Onset Heart disease Unknown Daughter Diagnosis Age At Onset Heart Attack Unknown Hyperlipidemia Unknown Hypertension Unknown Social History Social History Element Codes Description Effective Dates Number of children Unknown 2 daughter lives in friendship, son - does not have contact 09/16/[address]: 0353783 Quit over 10 years ago 1990 - previously smoked 2ppd x 25 years. 11/18/2015 Marital status Unknown W idowed in 201003/06/2015 Employment Unknown Retir ed was a [employer] 03/06/2015 Allergies, Adverse Reactions, Alerts Substance Reaction [...] 12/16/2017 Unknown Major depressive dis order, recurrent, 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-10: F33.0 Active 09/16/2016 Unknown Encounter for genera l adult medical examination with abnormal findings ICD-9: V70.0 ICD-10: Z00.01 Active 02/03/2017 Unknown Obstructive sleep ap marc (adult) (pediatric) ICD-9: 327.23 ICD-10: G47.33 Active 12/16/2017 Unknown Essential (primary) hypertension ICD-9: 401.9 ICD-10: I10 Active 03/05/2015 Unknown Paroxysmal atrial fi brillation ICD-9: 427.31 ICD-10: I48.0 Active 02/02/2017 Unknown Acute laryngopharyng itis ICD-9: 465.0 ICD-10: J06.0 Active 11/26/2016 Unknown Cough ICD-9: 786.2 ICD-10: R05 Active 11/26/2016 Unknown Other dorsalgia ICD-9: 724.5 ICD-10: M54.89 Active 03/05/2015 Unknown Pleurodynia ICD-9: 786.50 ICD-10: R07.81 Active 11/26/2016 Unknown Low back pain ICD-9: 724.2 ICD-10: M54.5 Active 10/07/2016 Unknown Major depressive dis order, recurrent, moderate ICD-9: 296.32 ICD-10: F33.1 Active 10/07/2016 Unknown Pain in left knee ICD-9: 719.46 [...] ICD-9: 782.3 ICD-10: R60.0 Active 09/29/2015 Unknown Nausea ICD-9: 787.02 ICD-10: R11.0 Active 09/29/2015 Unknown Methicillin suscepti ble Staphylococcus aureus infection [...] zation ICD-9: V03.9 ICD-10: Z23 04/07/2016 Active Essential (primary) hypertension ICD-9: 401.1 ICD-10: I10 12/16/2017 Active Major depressive dis order, recurrent, 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-10: F33.0 09/16/2016 Active Encounter for genera l adult medical examination with abnormal findings ICD-9: V70.0 ICD-10: Z00.01 02/03/2017 Active Obstructive sleep ap marc (adult) (pediatric) ICD-9: 327.23 ICD-10: G47.33 12/16/2017 Active Essential (primary) hypertension ICD-9: 401.9 ICD-10: I10 03/05/2015 Active Paroxysmal atrial fi brillation ICD-9: 427.31 ICD-10: I48.0 02/02/2017 Active Acute laryngopharyng itis ICD-9: 465.0 ICD-10: J06.0 11/26/2016 Active Cough ICD-9: 786.2 ICD-10: R05 11/26/2016 Active Other dorsalgia ICD-9: 724.5 ICD-10: M54.89 03/05/2015 Active Pleurodynia ICD-9: 786.50 ICD-10: R07.81 11/26/2016 Active Low back pain ICD-9: 724.2 ICD-10: M54.5 10/07/2016 Active Major depressive dis order, recurrent, moderate ICD-9: 296.32 ICD-10: F33.1 10/07/2016 Active Pain in left knee ICD-9: 719.46 [...] edema ICD-9: 782.3 ICD-10: R60.0 09/29/2015 Active Nausea ICD-9: 787.02 ICD-10: R11.0 09/29/2015 Active Methicillin suscepti ble Staphylococcus aureus infection [...] Date Stop Date Sta tus Fill Instructions trazodone 50 mg tablet RxNorm: 238650 TAKE ONE TABLET BY MOUTH DAILY 04/25/2018 07/23/2018 Ac tive Ambien 10 mg tablet RxNorm: 738638 Tablet(s) TAKE ONE TABLET BY MOUTH AT BE DTIID 03/23/2018 06/20/2018 Ac tive terazosin 5 mg capsule RxNorm: 589481 TAKE ONE CAPSULE BY MOUTH DAILY 03/14/2018 09/09/2018 Ac tive Ambien 10 mg tablet RxNorm: 243192 Tablet(s) TAKE ONE TABLET BY MOUTH AT BE DTIME 01/18/2018 03/17/2018 Inactive trazodone 50 mg tablet RxNorm: 497261 TAKE ONE TABLET BY MOUTH ONCE DAILY 01/10/2018 03/22/2018 In active trazodone 50 mg tablet RxNorm: 838243 Tablet(s) TAKE ONE TABLET BY MOUTH ONCE DAILY 01/10/2018 04/24/2018 Inactive Ambien 10 mg tablet RxNorm: 247158 Tablet(s) TAKE ONE TABLET BY MOUTH AT BE DTIME 10/22/2017 01/17/2018 Inactive trazodone 50 mg tablet RxNorm: 204025 TAKE ONE TABLET BY MOUTH ONCE DAILY 10/18/2017 01/09/2018 In active omeprazole 20 mg cap marina,delayed release RxNorm: 592916 TAKE ONE CAPSULE BY M OUTH ONCE DAILY AT BEDTIME 08/27/2017 No Stop Date Active trazodone 50 mg tablet RxNorm: 099968 TAKE ONE TABLET BY MOUTH ONCE DAILY 08/18/2017 10/17/2017 In active Ambien 10 mg tablet RxNorm: 078105 Tablet(s) TAKE ONE TABLET BY MOUTH AT BE DTIME 08/18/2017 03/22/2018 Inactive paroxetine 20 mg tablet RxNorm: 9158963 TAKE ONE TABLET BY MOUTH ONCE DAILY 07/27/2017 No Stop Date Active Ambien 10 mg tablet RxNorm: 382384 Tablet(s) TAKE ONE TABLET BY MOUTH AT BE DTIME 06/23/2017 03/22/2018 Inactive omeprazole 20 mg cap marina,delayed release RxNorm: 313711 TAKE ONE CAPSULE BY M OUTH ONCE DAILY AT BEDTIME 04/23/2017 08/20/2017 Inactive trazodone 50 mg tablet RxNorm: 827364 TAKE ONE TABLET BY MOUTH ONCE DAILY 04/13/2017 08/10/2017 In active terazosin 5 mg capsule RxNorm: 203394 Capsule(s) TAKE ONE CAPSULE BY MOUTH TATA 04/08/2017 03/03/2018 In active Ambien 10 mg tablet RxNorm: 702111 Tablet(s) TAKE ONE TABLET BY MOUTH AT BE DTIID 02/17/2017 03/22/2018 Inactive Tylenol-Codeine #3 3 00 mg-30 mg tablet RxNorm: 734143 1 Tablet(s) PO QID as needed 02/02/2017 03/03/2017 In active metoprolol succinate ER 50 mg tablet,extended release 24 hr RxNorm: 858450 TAKE ONE TABLET BY MOUTH ONCE DAILY 12/23/2016 02/02/2017 Inactive Zithromax Z-Ted 250 mg tablet RxNorm: 711854 1 Tablet(s) PO UD 11/26/2016 02/16/2017 Inactive trazodone 50 mg tablet RxNorm: 427348 TAKE ONE TABLET BY MOUTH ONCE DAILY 11/12/2016 03/11/2017 In active Ambien 10 mg tablet RxNorm: 395652 Tablet(s) TAKE ONE TABLET BY MOUTH AT BE DTIME 10/22/2016 02/15/2017 Inactive paroxetine 20 mg tablet RxNorm: 2313059 1 Tablet(s) PO daily TAKE ONE TABLET BY MOUTH DAILY 09/16/2016 06/12/2017 Inactive meloxicam 7.5 mg tablet RxNorm: 699012 1 Tablet(s) PO daily 09/16/2016 11/14/2016 Inactive Protonix 40 mg table t,delayed release RxNorm: 638227 1 Tablet(s) PO daily 09/16/2016 08/22/2017 In active sucralfate 1 gram ta blet RxNorm: 111408 1 Tablet(s) PO TID 09/16/2016 08/22/2017 Inactive Ambien 10 mg tablet RxNorm: 793143 Tablet(s) TAKE ONE TABLET BY MOUTH AT BE DTIME 08/24/2016 03/22/2018 Inactive trazodone 50 mg tablet RxNorm: 295324 Tablet(s) TAKE ONE TABLET BY MOUTH DAILY 07/29/2016 11/11/2016 In active Ambien 10 mg tablet RxNorm: 779180 TAKE ONE TABLET BY MOUTH AT BEDTIME 06/23/2016 03/22/2018 In active Ambien 10 mg tablet RxNorm: 653389 Tablet(s) TAKE ONE TABLET BY MOUTH EVERY NIGHT AT BEDTIME 06/22/2016 06/23/2016 Inactive Lasix 40 mg tablet RxNorm: 067943 1 Tablet(s) PO daily as needed for swell ing 04/03/2016 09/15/2016 In active potassium chloride E R 20 mEq tablet,extended release RxNorm: 900651 1 Tablet(s) PO daily for swelling take with lasix as needed 04/03/2016 09/15/2016 Inactive Ambien 10 mg tablet RxNorm: 474988 Tablet(s) TAKE ONE TABLET BY MOUTH EVERY NIGHT AT BEDTIME 04/03/2016 03/22/2018 Inactive omeprazole 20 mg cap marina,delayed release RxNorm: 720337 TAKE ONE CAPSULE BY M OUTH EVERY NIGHT AT BEDTIME 03/31/2016 09/15/2016 Inactive paroxetine 20 mg tablet RxNorm: 7503974 TAKE ONE TABLET BY MOUTH DAILY 03/31/2016 09/15/2016 In active trazodone 50 mg tablet RxNorm: 513177 TAKE ONE TABLET BY MOUTH DAILY 03/20/2016 07/28/2016 In active terazosin 5 mg capsule RxNorm: 884081 TAKE ONE CAPSULE BY MOUTH DAILY 03/06/2016 10/06/2016 In active Ambien 10 mg tablet RxNorm: 821773 Tablet(s) TAKE ONE TABLET BY MOUTH EVERY NIGHT AT BEDTIME 01/17/2016 04/02/2016 Inactive loratadine 10 mg tablet RxNorm: 735806 1 Tablet(s) PO daily 01/15/2016 09/15/2016 Inactive mupirocin 2 % topica l ointment RxNorm: 014217 1 Application TOP TID 11/18/2015 12/01/2015 Inactive metoprolol succinate ER 50 mg tablet,extended release 24 hr RxNorm: 728258 1 Tablet(s) PO daily 11/18/2015 11/11/2016 Inactive loratadine 10 mg tablet RxNorm: 335499 1 Tablet(s) PO daily 11/18/2015 01/14/2016 Inactive Lasix 40 mg tablet RxNorm: 459214 1 Tablet(s) PO daily as needed for swell ing 10/30/2015 11/28/2015 In active potassium chloride E R 20 mEq tablet,extended release RxNorm: 434143 1 Tablet(s) PO daily for swelling take with lasix as needed 10/30/2015 11/28/2015 Inactive Tylenol-Codeine #3 3 00 mg-30 mg tablet RxNorm: 109432 1 Tablet(s) PO QID as needed 10/25/2015 02/01/2017 In active Ambien 10 mg tablet RxNorm: 890760 Tablet(s) TAKE ONE TABLET BY MOUTH EVERY NIGHT AT BEDTIME 10/18/2015 03/22/2018 Inactive Diflucan 150 mg tablet RxNorm: 795762 1 Tablet(s) PO daily 10/01/2015 12/03/2015 Inactive Lasix 20 mg tablet RxNorm: 091871 1 Tablet(s) PO PRN fror swelling 09/27/2015 10/29/2015 In active potassium chloride E R 10 mEq capsule,extended release RxNorm: 349579 1 Capsule(s) PO PRN for swelling take with lasix 09/27/2015 10/29/2015 Inactive Bactrim DS 800 mg-16 0 mg tablet RxNorm: 601987 1 Tablet(s) PO BID 09/02/2015 09/11/2015 Inactive Bactrim DS 800 mg-16 0 mg tablet RxNorm: 848726 1 Tablet(s) PO BID 09/02/2015 09/01/2015 Inactive nystatin 100,000 uni t/gram topical cream RxNorm: 628243 1 Gram(s) TOP TID 08/28/2015 09/26/2015 In active Diflucan 150 mg tablet RxNorm: 505496 1 Tablet(s) PO daily 08/28/2015 09/06/2015 Inactive betamethasone diprop ionate 0.05 % topical ointment RxNorm: 789647 1 Application TOP TID to affected area 08/02/2015 02/01/2017 Inactive nystatin 100,000 uni t/gram topical powder RxNorm: 548242 1 Gram(s) TOP QID 07/09/2015 08/01/2015 In active Ambien 10 mg tablet RxNorm: 385715 1 Tablet(s) PO QHS 06/19/2015 06/18/2015 Inactive Ambien 10 mg tablet RxNorm: 889943 TAKE ONE TABLET BY MOUTH EVERY NIGHT AT BEDTIME 06/19/2015 09/16/2015 Inactive Vitamin D2 50,000 un it capsule RxNorm: 569589 1 Capsule(s) PO QW 03/07/2015 03/06/2015 Inactive Vitamin D2 50,000 un it capsule RxNorm: 945117 1 Capsule(s) PO QW 03/07/2015 05/05/2015 Inactive terazosin 5 mg capsule RxNorm: 848186 1 Capsule(s) PO daily 03/06/2015 02/28/2016 Inactive [SAVINGS FOR NON-COVERED DRUGS -- BIN:00 6703, PCN: [id number], Group: XXXXX, ID# [id number], Questions: . THIS IS NOT INSURANCE.] trazodone 50 mg tablet RxNorm: 271936 1 Tablet(s) PO daily 03/06/2015 02/28/2016 Inactive paroxetine 20 mg tablet RxNorm: 6608681 1 Tablet(s) PO daily 03/06/2015 02/28/2016 Inactive Tylenol-Codeine #3 3 00 mg-30 mg tablet RxNorm: 443346 1 Tablet(s) PO QID as needed 03/06/2015 07/02/2015 In active amlodipine 10 mg tablet RxNorm: 820236 1 Tablet(s) PO daily 03/06/2015 11/17/2015 Inactive metoprolol succinate ER 25 mg tablet,extended release 24 hr RxNorm: 932794 1 Tablet(s) PO daily 03/06/2015 11/17/2015 Inactive omeprazole 20 mg cap marina,delayed release RxNorm: 746900 1 Capsule(s) PO QHS 03/06/2015 02/28/2016 In active omeprazole 20 mg cap marina,delayed release RxNorm: 727917 1 Capsule(s) PO QHS 01/31/2015 01/30/2015 In active omeprazole 20 mg cap marina,delayed release RxNorm: 751132 1 Capsule(s) PO QHS 01/31/2015 01/30/2015 In active omeprazole 20 mg cap marina,delayed release RxNorm: 786126 1 Capsule(s) PO QHS 01/31/2015 03/05/2015 In active Ambien 10 mg tablet RxNorm: 646142 1 Tablet(s) PO QHS 12/25/2014 04/21/2015 Inactive paroxetine 20 mg tablet RxNorm: 149815 1 Tablet(s) PO daily 12/25/2014 12/24/2014 Inactive Ambien 10 mg tablet RxNorm: 550814 1 Tablet(s) PO QHS 12/25/2014 12/24/2014 Inactive paroxetine 20 mg tablet RxNorm: 748868 1 Tablet(s) PO daily 12/25/2014 03/05/2015 Inactive terazosin 5 mg capsule RxNorm: 712726 1 Capsule(s) PO daily 11/23/2014 03/05/2015 Inactive [SAVINGS FOR NON-COVERED DRUGS -- BIN:00 3585, PCN: ASPROD1, Group: XXXXX, ID# [id number], Questions: . THIS IS NOT INSURANCE.] terazosin 5 mg capsule RxNorm: 641863 1 Capsule(s) PO daily 11/23/2014 11/22/2014 Inactive Lasix 20 mg tablet RxNorm: 890995 1 Tablet(s) PO daily No Start Date Active K-Dur 10 mEq tablet, extended release RxNorm: 691175 1 Tablet(s) PO daily No Start Date Active hydrochlorothiazide 25 mg tablet RxNorm: 818677 1 Tablet(s) PO daily No Start Date Active Eliquis 5 mg tablet RxNorm: 0571732 1 Tablet(s) PO BID No Start Date Active Vitamin D3 2,000 uni t tablet RxNorm: 374449 1 Tablet(s) PO daily No Start Date Active amiodarone 200 mg ta blet RxNorm: 682987 1 Tablet(s) PO BID No Start Date Active Zetia 10 mg tablet RxNorm: 414457 1 Tablet(s) PO daily No Start Date Active lisinopril 5 mg tablet RxNorm: 679887 1 Tablet(s) PO daily No Start Date Active Lipitor 80 mg tablet RxNorm: 743123 1/2 Tablet(s) PO daily No Start Date Active metoprolol succinate ER 25 mg tablet,extended release 24 hr RxNorm: 998975 1 Tablet(s) PO daily No Start Date 03/05/2015 Inactive Entresto 49 mg-51 mg tablet RxNorm: 7508036 1 Tablet(s) PO BID No Start Date 04/19/2018 Inactive sotalol 80 mg tablet RxNorm: 8848753 1 Tablet(s) PO BID No Start Date 04/19/2018 Inactive betamethasone diprop ionate 0.05 % topical ointment RxNorm: 664461 1 Application TOP TID to affected area No Start Date 08/01/2015 Inactive trazodone 50 mg tablet RxNorm: 396031 1 Tablet(s) PO daily No Start Date 03/05/2015 Inactive potassium chloride E R 10 mEq capsule,extended release RxNorm: 248160 1 Capsule(s) PO PRN for swelling take with lasix No Start Date 09/26/2015 Inactive amlodipine 10 mg tablet RxNorm: 451744 1 Tablet(s) PO daily No Start Date 03/05/2015 Inactive isosorbide mononitra te ER 30 mg tablet,extended release 24 hr RxNorm: 279310 1 Tablet(s) PO daily No Start Date 08/22/2017 Inactive aspirin 81 mg tablet ,delayed release RxNorm: 235754 1 Tablet(s) PO daily No Start Date 02/02/2017 Inactive Lasix 20 mg tablet RxNorm: 537044 1 Tablet(s) PO PRN fror swelling No Start Date 09/26/2015 Inactive Crestor 40 mg tablet RxNorm: 776300 1 Tablet(s) PO daily No Start Date 09/15/2016 Inactive metoprolol succinate ER 100 mg tablet,extended release 24 hr RxNorm: 319356 1 Tablet(s) PO daily No Start Date 12/15/2017 Inactive Medication Administered No Medication Administered data Immunizations Vaccine Codes Date Status Influenza CVX: 141 04/20 completed Influenza CVX: 141 04/08 completed Pneumococcal (Adult) CVX: 133 04/08/2016 completed Assessments Condition Codes Effectiv e Dates Encounter for immunization ICD-10: Z 23 ICD-9: V03.9 04/20/2018 Essential (primary) hypertension ICD -10: I10 ICD-9: 401.1 04/20/2018 Chronic atrial fibrillation ICD-10: I48.2 ICD-9: 427.31 04/20/2018 Major depressive disorder, recurrent, mild ICD-10: F33.0 ICD-9: 296.31 04/20/2018 Encounter for general adult medical exam ination with abnormal findings ICD-10: Z00.01 ICD-9: V70.0 02/09/2018 Obstructive sleep apnea (adult) (pediatric) ICD-10: G47.33 ICD-9: 327.23 12/16/2017 Essential (primary) hypertension ICD -10: I10 ICD-9: 401.9 08/23/2017 Paroxysmal atrial fibrillation ICD-1 0: I48.0 ICD-9: 427.31 02/02/2017 Cough ICD-10: R05 ICD-9: 786.2 11/26/2016 Pleurodynia ICD-10: R07.81 ICD-9: 786.50 11/26/2016 Acute laryngopharyngitis ICD-10: J06 .0 ICD-9: 465.0 11/26/2016 Other dorsalgia ICD-10: M54.89 ICD-9: 724.5 11/26/2016 Low back pain ICD-10: M54.5 ICD-9: 724.2 10/07/2016 Pain in left knee ICD-10: M25.562 [...] pollen ICD- 10: J30.1 ICD-9: 477.0 11/18/2015 Dysuria ICD-10: R30.0 ICD-9: 788.1 09/30/2015 Nausea ICD-10: R11.0 ICD-9: 787.02 09/30/2015 Localized edema ICD-10: R60.0 ICD-9: 782.3 09/30/2015 Methicillin susceptible Staphylococcus a ureus infection as the cause of diseases classified elsewhere ICD-10: B95.61 ICD-9: 041.11 09/09/2015 Methicillin susceptible Staphylococcus a ureus infection, unspecified site ICD-10: A49.01 ICD-9: 041.11 09/09/2015 Dermatophytosis, unspecified ICD-10: B35.9 ICD-9: 110.9 08/28/2015 Gastro-esophageal reflux disease without esophagitis ICD-10: K21.9 ICD-9: 530.81 07/09/2015 Back pain ICD-9: 724.5 0 03/06/2015 Insomnia ICD-9: 780.52 0 03/06/2015 ESOPHAGEAL REFLUX ICD-9: 530.81 03/06/2015 ESSENTIAL HYPERTENSION ICD-9: 401.9 03/06/2015 Osteoporosis ICD-9: 733.00 03/06/2015 Reason For [...] 27.7 pg 09/30/2015 Cbc With Differential Ord2 [place]% 10.7 % 09/30/2015 Cbc With Differential Ord2 [...] 1.10 K/ul 09/30/2015 Cbc With Differential Ord2 [place] ABS# 0.6 K/ul 09/30/2015 Cbc With Differential Ord2 Eos ABS# 0.2 K/ul 09/30/2015 Cbc With Differential Ord2 Baso ABS# 0.0 K/ul 09/30/2015 Cbc With Differential Ord2 New Analyzer Notice Please note new ref ranges s tarting 08-07-2015 due to implemntation of new five part differential hematolgy analyzer. 09/30/2015 Comp Metabolic Gsq690 NA 137 mEq/L 09/30/2015 Comp Metabolic Gdd001 K 4.5 mEq/L 09/30/2015 Comp Metabolic Ngj670 CL 102 mEq/L 09/30/2015 Comp Metabolic Ayv266 CO2 26.0 mEq/L 09/30/2015 Comp Metabolic Edk098 AN ION GAP 14 09/30/2015 Comp Metabolic Ror784 GL UCOSE 89 mg/dL 09/30/2015 Comp Metabolic Fjk808 Cr eat 0.8 mg/dL 09/30/2015 Comp Metabolic Imd262 eG FR 79 ml/min/1.73m2 09/29 Comp Metabolic Cxh896 BUN 14 mg/dL 09/30/2015 Comp Metabolic Kjl745 B/ C Ratio 18.2 Ratio 09/30/2015 Comp Metabolic Rhx031 CA LCIUM 8.9 mg/dL 09/30/2015 Comp Metabolic Pki758 AL K PHOS 65 U/L 09/30/2015 Comp Metabolic Lzm743 T(SGOT) 26 U/L 09/30/2015 Comp Metabolic Iax504 AL T(SGPT) 18 U/L 09/30/2015 Comp Metabolic Qsm621 BI LI T 0.6 mg/dL 09/30/2015 Comp Metabolic Kup448 AL BUMIN 3.8 g/dL 09/30/2015 Comp Metabolic Etc143 TP RO 6.6 g/dL 09/30/2015 Comp Metabolic Muk887 GL OB 2.8 g/dL 09/30/2015 Comp Metabolic Ldo812 A/ G Ratio 1.4 Ratio 09/30/2015 Comp Metabolic Vnv594 Os mo 274 mOsmo 09/30/2015 Cbc With Differential Ord2 WBC 5.6 K/uL [...] 15.7 % 03/06/2015 Vitamin D 25 Oh Czp0108 VITAMIN D, 25 HYDROXY 28.14 ng/mL 03/06/2015 Comp Metabolic Kee606 NA 137 mEq/L 03/06/2015 Comp Metabolic Zza365 K 4.3 mEq/L 03/06/2015 Comp Metabolic Gvp013 CL 104 mEq/L 03/06/2015 Comp Metabolic Khq649 CO2 28.0 mEq/L 03/06/2015 Comp Metabolic Xis247 AN ION GAP 9 03/06/2015 Comp Metabolic Ykz499 GL UCOSE 93 mg/dL 03/06/2015 Comp Metabolic Mkh555 Cr eat 0.8 mg/dL 03/06/2015 Comp Metabolic Bwe178 eG FR 81 ml/min/1.73m2 03/06 Comp Metabolic Tgk663 BUN 12 mg/dL 03/06/2015 Comp Metabolic Hyc551 B/ C Ratio 16.0 Ratio 03/06/2015 Comp Metabolic Xxb088 CA LCIUM 8.9 mg/dL 03/06/2015 Comp Metabolic Ned638 AL K PHOS 56 U/L 03/06/2015 Comp Metabolic Vlz114 T(SGOT) 22 U/L 03/06/2015 Comp Metabolic Ymn699 AL T(SGPT) 15 U/L 03/06/2015 Comp Metabolic Asq127 BI LI T 0.4 mg/dL 03/06/2015 Comp Metabolic Ysh245 AL BUMIN 4.0 g/dL 03/06/2015 Comp Metabolic Gbm656 TP RO 6.5 g/dL 03/06/2015 Comp Metabolic Oxk978 GL OB 2.5 g/dL 03/06/2015 Comp Metabolic Xyx172 A/ G Ratio 1.6 Ratio 03/06/2015 Comp Metabolic Cqa607 Os mo 273 mOsmo 03/06/2015 Tsh Ord6 hTSH II 1.05 uIU/mL 03/06/2015 Review of Systems System Result Effective Dates Constitutional recent illness 04/20/2018 Constitutional fatigue 0 [...] Exam - ENT Respiratory auscultation Diffuse: diminished 0 10/2016 None Full Exam - General 1994 [...] None Procedures Procedure Codes Date ADMIN INFLUENZA VIRU S VAC CPT-4: G0008 04/20/2018 FLU VACC PRSV FREE I NC ANTIG Formatting Model/CDA Sections, Assigned to/Amparo Mims CPT-4: 06805Temtolx 04/20/2018 PPPS, SUBSEQ VISIT CPT- 4: G0439 02/09/2018 PPPS, SUBSEQ VISIT CPT- 4: G0439 02/03/2017 ADMIN INFLUENZA VIRU S VAC CPT-4: G0008 04/08/2016 ADMIN PNEUMOCOCCAL V ACCINE SNOMED CT: 93746305 CPT-4: G0009 04/08/2016 PNEUMOCOCCAL VACC [address]: 96225170 CPT-4: 94454 04/08/2016 FLU VACC PRSV FREE I NC ANTIG CPT-4: 92888 04/08/2016 Vital Signs Date Vital 04/20/2018 Blood Pressure 1: 128/68 Code: 8480-6 BMI: 41.7 Code: 74285-2 Heart Rate 1: 85 bpm Height: 5'7" SpO2: 94% Weight: 266 lbs 02/09/2018 Blood Pressure 1: 118/70 Code: 8480-6 BMI: 42.1 Code: 28579-6 Heart Rate 1: 58 bpm Height: 5'7" SpO2: 94% Weight: 269 lbs 12/16/2017 Blood Pressure 1: 132/86 Code: 8480-6 BMI: 42.7 Code: 02769-7 Heart Rate 1: 63 bpm Height: 5'7" SpO2: 94% Weight: 272 lbs 14 o z 08/23/2017 Blood Pressure 1: 150/82 Code: 8480-6 BMI: 42.0 Code: 11245-4 Heart Rate 1: 66 bpm Height: 5'7" SpO2: 96% Weight: 268 lbs 02/03/2017 Blood Pressure 1: 138/72 Code: 8480-6 BMI: 41.2 Code: 89323-3 Heart Rate 1: 96 bpm Height: 5'7" SpO2: 97% Weight: 263 lbs 02/02/2017 Blood Pressure 1: 140/90 Code: 8480-6 BMI: 41.2 Code: 58990-0 Heart Rate 1: 103 bpm Height: 5'7" SpO2: 94% Weight: 263 lbs 11/26/2016 Blood Pressure 1: 152/88 Code: 8480-6 BMI: 41.0 Code: 94857-3 Heart Rate 1: 71 bpm Height: 5'7" SpO2: 94% Temperature: 37.7 (C ) / 99.8 (F) Weight: 262 lbs 10/07/2016 Blood Pressure 1: 148/82 Code: 8480-6 BMI: 41.7 Code: 24813-5 Heart Rate 1: 58 bpm Height: 5'7" SpO2: 96% Weight: 266 lbs 09/16/2016 Blood Pressure 1: 122/70 Code: 8480-6 BMI: 42.0 Code: 90142-9 Heart Rate 1: 65 bpm Height: 5'7" SpO2: 96% Weight: 268 lbs 09/07/2016 Blood Pressure 1: 154/60 Code: 8480-6 BMI: 42.3 Code: 29912-5 Heart Rate 1: 101 bpm Height: 5'7" SpO2: 97% Weight: 270 lbs 04/08/2016 Blood Pressure 1: 128/70 Code: 8480-6 BMI: 41.4 Code: 08360-8 Heart Rate 1: 62 bpm Height: 5'7" SpO2: 95% Weight: 264 lbs 8 oz 03/05/2016 Blood Pressure 1: 139/72 Code: 8480-6 Blood Pressure 1: 144/78 Code: 8480-6 BMI: 41.9 Code: 29317-5 Heart Rate 1: 71 bpm Height: 5'7" SpO2: 93% Weight: 267 lbs 8 oz 12/04/2015 Blood Pressure 1: 132/70 Code: 8480-6 BMI: 41.3 Code: 31199-2 Heart Rate 1: 56 bpm Height: 5'7" SpO2: 96% Weight: 264 lbs 11/18/2015 Blood Pressure 1: 138/72 Code: 8480-6 BMI: 41.0 Code: 12826-4 Heart Rate 1: 85 bpm Height: 5'7" SpO2: 93% Weight: 262 lbs 09/30/2015 Blood Pressure 1: 128/76 Code: 8480-6 BMI: 41.2 Code: 88502-5 Heart Rate 1: 70 bpm Height: 5'7" SpO2: 93% Weight: 263 lbs 09/09/2015 Blood Pressure 1: 138/80 Code: 8480-6 BMI: 40.3 Code: 79794-1 Heart Rate 1: 84 bpm Height: 5'7" SpO2: 95% Weight: 257 lbs 08/28/2015 Blood Pressure 1: 122/72 Code: 8480-6 BMI: 39.6 Code: 59302-7 Heart Rate 1: 75 bpm Height: 5'7" SpO2: 96% Weight: 253 lbs 07/09/2015 Blood Pressure 1: 135/78 Code: 8480-6 Blood Pressure 1: 140/78 Code: 8480-6 BMI: 39.5 Code: 33645-6 Heart Rate 1: 62 bpm Height: 5'7" SpO2: 95% Weight: 252 lbs 03/06/2015 Blood Pressure 1: 142/88 Code: 8480-6 BMI: 39.3 Code: 63715-4 Heart Rate 1: 65 bpm Height: 5'7" SpO2: 95% Weight: 251 lbs Functional Status No Functional Status data History of Present Illness Symptom Name Status Resu lt Effective Date Notes hypertension Quality bailey jeannine hypertension 04/20/2018 None [...] 09/16/2016 None low back pain Quality ac [place] 09/16/2016 None low back pain Onset and [...] Encounters Encounter Performer Loca tion Codes Date ([id number]) [id number] EST. P ATIENT, LEVEL IV Diagnosis: Encounter for immunization[ICD10: Z23] Diagnosis: Essential (primary) hypertension[ICD10: I10] Diagnosis: Chronic atrial fibrillation[ICD10: I48.2] Diagnosis: Major depressive disorder, recurrent, mild[ICD10: F33.0] Scarlett Spring MD, LL C CPT-4: 44076 04/20/2018 [id number]) [id number] EST. P ATIENT, LEVEL IV Diagnosis: Essential (primary) hypertension[ICD10: I10] Diagnosis: Obstructive sleep apnea (adult) (pediatric)[ICD10: G47.33] Diagnosis: Chronic atrial fibrillation[ICD10: I48.2] Scarlett Spring MD, LL C CPT-4: 95180 12/16/2017 [id number]) 01975 EST. P ATIENT, LEVEL IV Diagnosis: Essential (primary) hypertension[ICD10: I10] Diagnosis: Chronic atrial fibrillation[ICD10: I48.2] Scarlett Spring MD, LL C CPT-4: 98699 08/23/2017 [id number]) 26995 EST. P ATIENT, LEVEL IV Diagnosis: Paroxysmal atrial fibrillation[ICD10: I48.0] Diagnosis: Essential (primary) hypertension[ICD10: I10] Scarlett Spring MD, C CPT-4: 77506 02/02/2017 52730 EST. PATIENT, LEVEL III Diagnosis: Acute laryngopharyngitis[ICD10: J06.0] Diagnosis: Cough[ICD10: R05] Diagnosis: Pleurodynia[ICD10: R07.81] Diagnosis: Other dorsalgia[ICD10: M54.89] Kassandra Spring MD, [facility] CPT-4: 53919 11/26/2016 ([id number]) 47036 EST. P ATIENT, LEVEL IV Diagnosis: Essential (primary) hypertension[ICD10: I10] Diagnosis: Pain in left knee[ICD10: M25.562] Diagnosis: Low back pain[ICD10: M54.5] Diagnosis: Major depressive disorder, recurrent, moderate[ICD10: F33.1] Scarlett Spring MD, [facility] CPT-4: 10839 10/07/2016 ([id number]) 05335 EST. P ATIENT, LEVEL IV Diagnosis: Essential (primary) hypertension[ICD10: I10] Diagnosis: Rash and other nonspecific skin eruption[ICD10: R21] Diagnosis: Major depressive disorder, recurrent, mild[ICD10: F33.0] Scarlett Spring MD, [facility] CPT-4: 11570 09/16/2016 27975 EST. PATIENT, LEVEL IV Diagnosis: Pain in left lower leg[ICD10: M79.662] Diagnosis: Pain in left knee[ICD10: M25.562] Kassandra Spring MD, [facility] CPT-4: 14866 09/07/2016 ([id number]) 02157 EST. P ATIENT, LEVEL IV Diagnosis: Encounter for immunization[ICD10: Z23] Diagnosis: Essential (primary) hypertension[ICD10: I10] Diagnosis: Mixed hyperlipidemia[ICD10: E78.2] Scarlett Spring MD, [facility] CPT- 4: 99476 04/08/2016 ([id number]) 84555 EST. P ATIENT, LEVEL III Diagnosis: Essential (primary) hypertension[ICD10: I10] Diagnosis: Shortness of breath[ICD10: R06.02] Scarlett Spring MD, [facility] CPT- 4: 67966 03/05/2016 ([id number]) 67220 EST. P ATIENT, LEVEL III Diagnosis: Chronic obstructive pulmonary disease, unspecified[ICD10: J44.9] Scarlett Spring MD, [facility] CPT-4: 56457 12/04/2015 ([id number]) 33042 EST. P ATIENT, LEVEL IV Diagnosis: Essential (primary) hypertension[ICD10: I10] Diagnosis: Allergic rhinitis due to pollen[ICD10: J30.1] Scarlett Spring MD, C CPT-4: 47839 11/18/2015 ([id number]) 28964 EST. P ATIENT, LEVEL IV Diagnosis: Localized edema[ICD10: R60.0] Diagnosis: Dysuria[ICD10: R30.0] Diagnosis: Essential (primary) hypertension[ICD10: I10] Diagnosis: Nausea[ICD10: R11.0] Alis Spring MD, [facility] CPT-4: 08725 09/30/2015 ([id number]) 39683 EST. P ATIENT, LEVEL II Diagnosis: Methicillin susceptible Staphylococcus aureus infection as the cause of diseases classified elsewhere[ICD10: B95.61] Diagnosis: Methicillin susceptible Staphylococcus aureus infection, unspecified site[ICD10: A49.01] Alis Spring MD, [facility] CPT-4: 38282 09/09/2015 ([id number]) 52822 EST. P ATIENT, LEVEL III Diagnosis: Dermatophytosis, unspecified[ICD10: B35.9] Diagnosis: Rash and other nonspecific skin eruption[ICD10: R21] Scarlett Spring MD, C CPT-4: 67012 08/28/2015 ([id number]) 75069 EST. P ATIENT, LEVEL IV Diagnosis: Essential (primary) hypertension[ICD10: I10] Diagnosis: Gastro-esophageal reflux disease without esophagitis[ICD10: K21.9] Diagnosis: Other dorsalgia[ICD10: M54.89] Scarlett Spring MD, [facility] CPT-4: 55351 07/09/2015 ([id number]) OFFICE [facility] - LEVEL 4 Diagnosis: ESSENTIAL HYPERTENSION[ICD9: 401.9] Diagnosis: Osteoporosis[ICD9: 733.00] Diagnosis: Back pain[ICD9: 724.5] Diagnosis: Insomnia[ICD9: 780.52] Diagnosis: ESOPHAGEAL REFLUX[ICD9: 530.81] Scarlett Spring [facility] CPT-4: 70775 03/06/2015 Plan of Care Planned Activity Notes [...] shot today. 04/20/2018 Appointment: Scarlett Spring WPtel: [address] [place], [place] [address] (15 min) Moderate 04/20/2018 Patient Education: Patient [...] care surrogate. 02/09/2018 Appointment: Kassandra Argueta WPtel: [phone] [facility] [facility] - Annual Wellness Visit 02/09/2018 [...] night. 12/16/2017 Appointment: Scarlett Spring WPtel: [phone] [facility] (15 min) Moderate 12/16/2017 Patient Education: Patient [...] uncontrolled. 08/23/2017 [facility]ment[phone] ([facility] min) Moderate 08/23/2017 Patient Education: Patient [...] to cardiology 02/03/2017 Appointment: Kassandra Argueta WPtel: [phone] [facility] [facility] - Annual Wellness Visit 02/03/2017 Patient Education: Patient Medication Summary Completed 02/03/2017 Patient Education: Obesity Completed 02/03/2017 Visit Plan: Atrial fibrillation - a ppt with dr. corley today at 1pm - [...] home. 02/02/2017 Appointment: Scar[facility] Spring [phone] (15 min) Moderate 02/02/2017 Patient Education: Patient [...] improve. 11/26/2016 Appointment[phone] (30 min) Complex 11/26/2016 Patient Education: Patient [...] symptoms. 10/07/2016 Appointment: [facility] Spring [phone] (15 min) Moderate 10/07/2016 Patient Education: Patient Medication Summary Completed 10/07/2016 Patient Education: Obesity Completed 10/07/2016 Patient Education: Hypertension Completed 10/07/2016 Care Plan: VASCULAR STUDY Pending 10/04/2016 Care Plan: X-RAY EXAM OF KNEE 3 [facility] : [id number] Pending 10/04/2016 Visit Plan: Hypertension - well [...] paroxetine 09/16/2016 Appointment: Scarlett Spring [phone] [facility] (15 min) Moderate 09/16/2016 Patient Education: Patient [...] improve. 09/07/2016 Appointment: [facility]gueta [phone] [place] (10 min) Simple 09/07/2016 Patient Education: Patient [...] order 04/08/2016 Appointment: Scarlett Spring [facility]Ptel[phone] [place] (15 min) Moderate 04/08/2016 Patient Education: [...] days. 03/05/2016 Appointment: Scarlett Spring WPtel: [phone] [facility] (15 min) Moderate 03/05/2016 Patient Education: Patient Medication Summary Completed 03/05/2016 Visit Plan: COPD - chronic problem for this patient. We have reviewed chronic treatment strategy, symptom control, and plans for acute exacerbations. No changes today to the current treatment plan as the patient is stable, monitor for acute changes. anoro samples given to the patient 12/04/2015 Appointment: Scarlett Spring WPtel: [phone] [facility] (15 min) Moderate 12/04/2015 Patient Education: Patient [...] spray. 11/18/2015 Appointment: Scarlett Spring WPtel: [phone] [facility] (15 min) Moderate 11/18/2015 Patient Education: Patient Medication Summary Completed 11/18/2015 Patient Education: Obesity Completed 11/18/2015 Patient Education: Hypertension Completed 11/18/2015 Appointment: Scarlett Spring WPtel: [address] [place] [address] (15 min) Moderate 11/07/2015 Visit Plan: Hypertension [...] Visit Plan: MSSA of groin and under [id number]-[id number]-cfgcve bactrim and call if rash does not completely resolve 09/09/2015 Appointment: (15 min) Moderate 09/09/2015 Patient Education: Patient Medication Summary Completed 09/09/2015 Visit Plan: Rash - dermatophytosis - recommended oral diflucan, topical nystatin cream, rtc in 10 days to assure healing. check of culture - may need to consider treatment with antibiotic depending on the groin culture report. 08/28/2015 Appointment: Scarlett Spring WPtel: [address] [place], [place] [id number] (15 min) Moderate 08/28/2015 Patient [...] not improving. 07/09/2015 Appointment: Scar[facility] Spring [phone] [place] (15 min) Moderate 07/09/2015 Patient Education: Patient Medication Summary Completed 07/09/2015 Patient Education: Hypertension Completed 07/09/2015 Visit Plan: Hypertension - well rick waleska - continue with current medications, continue [...] improving. 03/06/2015 Appointment: Scarlett Spring [facility]Ptel[phone] [facility] [place] ([place]) New Patient 03/06/2015 Patient Education: Patient Medication Summary Completed 03/06/2015 Patient Education: Hypertension Completed 03/06/2015 Instructions Comment . Left knee pain, le ft calf [...] on the groin culture report. . Atrial fibrillatio n - appt with dr. corley today at [...]
--- OUTSIDE RECORDS SUMMARY | 2020-01-23 14:22 | XMS REPORT | CCD ---
Author Author Jeannine Spring Organization Scarlett Spring MD, [facility] Address [address] [place] [address] Phone Care Team Providers Care One [employer] Exp[employer] Maker Hand Name Role Phone PP Unavailable CCM Unavailable Summary Purpose Interface Exchange Insurance Providers Payer name Policy type / Coverage type Covered democrat ID Effective Begin Date Effective End Date WPS Medicare Part B Medicare Part B [id number] Unknown Unknown [employer] Medicare Part B [id number] Unknown Unkno wn Family history Mother Diagnosis Age At Onset Hypertension Unknown Heart Attack Unknown Brother Diagnosis Age At Onset Heart disease Unknown Runs in the family Diagnosis Age At Onset Heart disease Unknown Daughter Diagnosis Age At Onset Heart Attack Unknown Hyperlipidemia Unknown Hypertension Unknown Social History Social History Element Codes Description Effective Dates Number of children Unknown 2 daughter lives in [place], son - does not have contact 09/16/[address]: 3852045 Quit over 10 years ago 1990 - previously smoked 2ppd x 25 years. 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 Allergies, Adverse Reactions, Alerts Allergies, Adverse Reactions, Alerts data not found Past Medical History Illness Codes Condition Status Onset Date Resolved Date Encounter for genera l adult medical examination [...] ICD-9: 719.46 ICD-10: M25.562 Active 09/07/2016 Unknown Major depressive dis order, recurrent, 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-10: F33.0 Active 09/16/2016 Unknown Rash and other nonsp ecific skin eruption ICD-9: 782.1 ICD-10: R21 Active 08/27/2015 Unknown Pain in left lower leg ICD-9: 729.5 ICD-10: M79.662 Active 09/07/2016 Unknown Encounter for immuni zation ICD-9: V03.9 [...] Condition Codes Effectiv e Dates Condition Status Encounter for mary l adult medical examination with abnormal findings [...] knee ICD-9: 719.46 ICD-10: M25.562 09/07/2016 Active Major depressive dis order, recurrent, 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-10: F33.0 09/16/2016 Active Rash and other nonsp ecific skin eruption ICD-9: 782.1 ICD-10: R21 08/27/2015 Active Pain in left lower leg ICD-9: 729.5 ICD-10: M79.662 09/07/2016 Active Encounter for immuni zation ICD-9: V03.9 ICD-10: Z23 04/07/2016 Active Mixed [...] Date Stop Date Sta tus Fill Instructions Tylenol-Codeine #3 3 00 mg-30 mg tablet RxNorm: 522364 1 Tablet(s) PO QID as needed 02/02/2017 03/03/2017 Ac tive metoprolol succinate ER 50 mg tablet,extended release 24 hr RxNorm: 696542 TAKE ONE TABLET BY MOUTH ONCE DAILY 12/23/2016 02/02/2017 Inactive Zithromax Z-Ted 250 mg tablet RxNorm: 655819 1 Tablet(s) PO UD 11/26/2016 No Stop Date Active trazodone 50 mg tablet RxNorm: 479495 TAKE ONE TABLET BY MOUTH ONCE DAILY 11/12/2016 03/11/2017 Ac tive Ambien 10 mg tablet RxNorm: 449081 Tablet(s) TAKE ONE TABLET BY MOUTH AT BE COUNT INCLUDES [facility] 10/22/2016 02/16/2017 Ac tive paroxetine 20 mg tablet RxNorm: 3687892 1 Tablet(s) PO daily TAKE ONE TABLET BY MOUTH DAILY 09/16/2016 06/12/2017 Active Protonix 40 mg table t,delayed release RxNorm: 034035 1 Tablet(s) PO daily 09/16/2016 03/14/2017 Ac tive sucralfate 1 gram ta blet RxNorm: 230108 1 Tablet(s) PO TID 09/16/2016 01/13/2017 Inactive meloxicam 7.5 mg tablet RxNorm: 890164 1 Tablet(s) PO daily 09/16/2016 11/14/2016 Inactive Ambien 10 mg tablet RxNorm: 754691 Tablet(s) TAKE ONE TABLET BY MOUTH AT [facility] 08/24/2016 10/21/2016 Inactive trazodone 50 mg tablet RxNorm: 796599 Tablet(s) TAKE ONE TABLET BY MOUTH DAILY 07/29/2016 11/11/2016 In active Ambien 10 mg tablet RxNorm: 791096 TAKE ONE TABLET BY MOUTH AT BEDTIME 06/23/2016 07/21/2016 In active Ambien 10 mg tablet RxNorm: 864046 Tablet(s) TAKE ONE TABLET BY MOUTH EVERY NIGHT AT BEDTIME 06/22/2016 06/23/2016 Inactive Ambien 10 mg tablet RxNorm: 583962 Tablet(s) TAKE ONE TABLET BY MOUTH EVERY NIGHT AT BEDTIME 04/03/2016 05/31/2016 Inactive Lasix 40 mg tablet RxNorm: 416964 1 Tablet(s) PO daily as needed for swell ing 04/03/2016 09/15/2016 In active potassium chloride E R 20 mEq tablet,extended release RxNorm: 952421 1 Tablet(s) PO daily for swelling take with lasix as needed 04/03/2016 09/15/2016 Inactive omeprazole 20 mg cap mar[place],delayed release RxNorm: 373511 TAKE ONE CAPSULE BY M OUTH EVERY NIGHT AT BEDTIME 03/31/2016 09/15/2016 Inactive paroxetine 20 mg tablet RxNorm: 9847556 TAKE ONE TABLET BY MOUTH DAILY 03/31/2016 09/15/2016 In active trazodone 50 mg tablet RxNorm: 519638 TAKE ONE TABLET BY MOUTH DAILY 03/20/2016 07/28/2016 In active terazosin 5 mg capsule RxNorm: 367505 TAKE ONE CAPSULE BY MOUTH DAILY 03/06/2016 10/06/2016 In active Ambien 10 mg tablet RxNorm: 961209 Tablet(s) TAKE ONE TABLET BY MOUTH EVERY NIGHT AT BEDTIME 01/17/2016 04/02/2016 Inactive loratadine 10 mg tablet RxNorm: 357233 1 Tablet(s) PO daily 01/15/2016 09/15/2016 Inactive mupirocin 2 % topica l ointment RxNorm: 384588 1 Application TOP TID 11/18/2015 12/01/2015 Inactive metoprolol succinate ER 50 mg tablet,extended release 24 hr RxNorm: 511924 1 Tablet(s) PO daily 11/18/2015 11/11/2016 Inactive loratadine 10 mg tablet RxNorm: 072357 1 Tablet(s) PO daily 11/18/2015 01/14/2016 Inactive Lasix 40 mg tablet RxNorm: 853726 1 Tablet(s) PO daily as needed for swell ing 10/30/2015 11/28/2015 In active potassium chloride E R 20 mEq tablet,extended release RxNorm: 271105 1 Tablet(s) PO daily for swelling take with lasix as needed 10/30/2015 11/28/2015 Inactive Tylenol-Codeine #3 3 00 mg-30 mg tablet RxNorm: 519996 1 Tablet(s) PO QID as needed 10/25/2015 02/01/2017 In active Ambien 10 mg tablet RxNorm: 449392 Tablet(s) TAKE ONE TABLET BY MOUTH EVERY NIGHT AT BEDTIME 10/18/2015 01/13/2016 Inactive Diflucan 150 mg tablet RxNorm: 836096 1 Tablet(s) PO daily 10/01/2015 12/03/2015 Inactive Lasix 20 mg tablet RxNorm: 546121 1 Tablet(s) PO PRN fror swelling 09/27/2015 10/29/2015 In active potassium chloride E R 10 mEq capsule,extended release RxNorm: 887907 1 Capsule(s) PO PRN for swelling take with lasix 09/27/2015 10/29/2015 Inactive Bactrim DS 800 mg-16 0 mg tablet RxNorm: 832723 1 Tablet(s) PO BID 09/02/2015 09/11/2015 Inactive Bactrim DS 800 mg-16 0 mg tablet RxNorm: 268789 1 Tablet(s) PO BID 09/02/2015 09/01/2015 Inactive nystatin 100,000 uni t/gram topical cream RxNorm: 340939 1 Gram(s) TOP TID 08/28/2015 09/26/2015 In active Diflucan 150 mg tablet RxNorm: 402337 1 Tablet(s) PO daily 08/28/2015 09/06/2015 Inactive betamethasone diprop ionate 0.05 % topical ointment RxNorm: 971093 1 Application TOP TID to affected area 08/02/2015 02/01/2017 Inactive nystatin 100,000 uni t/gram topical powder RxNorm: 209355 1 Gram(s) TOP QID 07/09/2015 08/01/2015 In active Ambien 10 mg tablet RxNorm: 837965 1 Tablet(s) PO QHS 06/19/2015 06/18/2015 Inactive Ambien 10 mg tablet RxNorm: 987369 TAKE ONE TABLET BY MOUTH EVERY NIGHT AT BEDTIME 06/19/2015 09/16/2015 Inactive Vitamin D2 50,000 un it capsule RxNorm: 189618 1 Capsule(s) PO QW 03/07/2015 03/06/2015 Inactive Vitamin D2 50,000 un it capsule RxNorm: 117026 1 Capsule(s) PO QW 03/07/2015 05/05/2015 Inactive terazosin 5 mg capsule RxNorm: 508744 1 Capsule(s) PO daily 03/06/2015 02/28/2016 Inactive [SAVINGS FOR NON-COVERED DRUGS -- BIN:00 3395, PCN: [id number], Group: XXXXX, ID# XXXXXXX, Questions: . THIS IS NOT INSURANCE.] trazodone 50 mg tablet RxNorm: 442013 1 Tablet(s) PO daily 03/06/2015 02/28/2016 Inactive paroxetine 20 mg tablet RxNorm: 4352155 1 Tablet(s) PO daily 03/06/2015 02/28/2016 Inactive Tylenol-Codeine #3 3 00 mg-30 mg tablet RxNorm: 063529 1 Tablet(s) PO QID as needed 03/06/2015 07/02/2015 In active amlodipine 10 mg tablet RxNorm: 436725 1 Tablet(s) PO daily 03/06/2015 11/17/2015 Inactive metoprolol succinate ER 25 mg tablet,extended release 24 hr RxNorm: 765536 1 Tablet(s) PO daily 03/06/2015 11/17/2015 Inactive omeprazole 20 mg cap marina,delayed release RxNorm: 230443 1 Capsule(s) PO QHS 03/06/2015 02/28/2016 In active omeprazole 20 mg cap marina,delayed release RxNorm: 272002 1 Capsule(s) PO QHS 01/31/2015 01/30/2015 In active omeprazole 20 mg cap marina,delayed release RxNorm: 813324 1 Capsule(s) PO QHS 01/31/2015 01/30/2015 In active omeprazole 20 mg cap marina,delayed release RxNorm: 106053 1 Capsule(s) PO QHS 01/31/2015 03/05/2015 In active Ambien 10 mg tablet RxNorm: 096622 1 Tablet(s) PO QHS 12/25/2014 04/21/2015 Inactive paroxetine 20 mg tablet RxNorm: 794594 1 Tablet(s) PO daily 12/25/2014 12/24/2014 Inactive Ambien 10 mg tablet RxNorm: 335668 1 Tablet(s) PO QHS 12/25/2014 12/24/2014 Inactive paroxetine 20 mg tablet RxNorm: 042743 1 Tablet(s) PO daily 12/25/2014 03/05/2015 Inactive terazosin 5 mg capsule RxNorm: 615771 1 Capsule(s) PO daily 11/23/2014 03/05/2015 Inactive [SAVINGS FOR NON-COVERED DRUGS -- BIN:00 9370, PCN: ASPROD1, Group: XXXXX, ID# [id number], Questions: . THIS IS NOT INSURANCE.] terazosin 5 mg capsule RxNorm: 733315 1 Capsule(s) PO daily 11/23/2014 11/22/2014 Inactive Lasix 20 mg tablet RxNorm: 270749 1 Tablet(s) PO daily No Start Date Active K-Dur 10 mEq tablet, extended release RxNorm: 022656 1 Tablet(s) PO daily No Start Date Active Eliquis 5 mg tablet RxNorm: 7600440 1 Tablet(s) PO BID No Start Date Active Vitamin D3 2,000 uni t tablet RxNorm: 813496 1 Tablet(s) PO daily No Start Date Active isosorbide mononitra te ER 30 mg tablet,extended release 24 hr RxNorm: 085330 1 Tablet(s) PO daily No Start Date Active Zetia 10 mg tablet RxNorm: 926723 1 Tablet(s) PO daily No Start Date Active Lipitor 80 mg tablet RxNorm: 630374 1/2 Tablet(s) PO daily No Start Date Active metoprolol succinate ER 100 mg tablet,extended release 24 hr RxNorm: 240108 1 Tablet(s) PO daily No Start Date Active metoprolol succinate ER 25 mg tablet,extended release 24 hr RxNorm: 891956 1 Tablet(s) PO daily No Start Date 03/05/2015 Inactive betamethasone diprop ionate 0.05 % topical ointment RxNorm: 062357 1 Application TOP TID to affected area No Start Date 08/01/2015 Inactive trazodone 50 mg tablet RxNorm: 379167 1 Tablet(s) PO daily No Start Date 03/05/2015 Inactive potassium chloride E R 10 mEq capsule,extended release RxNorm: 364449 1 Capsule(s) PO PRN for swelling take with lasix No Start Date 09/26/2015 Inactive amlodipine 10 mg tablet RxNorm: 973268 1 Tablet(s) PO daily No Start Date 03/05/2015 Inactive aspirin 81 mg tablet ,delayed release RxNorm: 663810 1 Tablet(s) PO daily No Start Date 02/02/2017 Inactive Lasix 20 mg tablet RxNorm: 260242 1 Tablet(s) PO PRN fror swelling No Start Date 09/26/2015 Inactive Crestor 40 mg tablet RxNorm: 926763 1 Tablet(s) PO daily No Start Date 09/15/2016 Inactive Medication Administered No Medication Administered data Immunizations Vaccine Codes Date Status Influenza CVX: 141 04/08 completed Pneumococcal (Adult) CVX: 133 04/08/2016 completed Assessments Condition Codes Effectiv e Dates Encounter for general adult medical exam ination with abnormal findings ICD-10: Z00.01 ICD-9: V70.0 02/03/2017 Paroxysmal atrial fibrillation ICD-1 0: I48.0 ICD-9: 427.31 02/02/2017 Essential (primary) hypertension ICD -10: I10 ICD-9: 401.9 02/02/2017 Acute laryngopharyngitis ICD-10: J06 .0 ICD-9: [...] leg ICD-10: M79.6 62 ICD-9: 729.5 09/07/2016 Encounter for immunization ICD-10: Z 23 ICD-9: V03.9 04/08/2016 Mixed hyperlipidemia ICD-10: E78.2 ICD-9: 272.2 04/08/2016 Shortness of breath ICD-10: R06.02 ICD-9: 786.05 03/05/2016 Chronic obstructive pulmonary disease, unspecified ICD-10: J44.9 ICD-9: 491.20 12/04/2015 Allergic rhinitis due to pollen ICD- 10: J30.1 ICD-9: 477.0 11/18/2015 Dysuria ICD-10: R30.0 ICD-9: 788.1 09/30/2015 Localized edema ICD-10: R60.0 ICD-9: 782.3 09/30/2015 Nausea ICD-10: R11.0 ICD-9: 787.02 09/30/2015 Methicillin susceptible Staphylococcus a ureus infection [...] Item Item Code Result Date Comp Metabolic Knw004 NA 137 mEq/L 09/30/2015 Comp Metabolic Bdd908 K 4.5 mEq/L 09/30/2015 Comp Metabolic Rtn912 CL 102 mEq/L 09/30/2015 Comp Metabolic Day802 CO2 26.0 mEq/L 09/30/2015 Comp Metabolic Xjh156 AN ION GAP 14 09/30/2015 Comp Metabolic Mwj883 GL UCOSE 89 mg/dL 09/30/2015 Comp Metabolic Uyq115 Cr eat 0.8 mg/dL 09/30/2015 Comp Metabolic Qri201 eG FR 79 ml/min/1.73m2 09/29 Comp Metabolic Kyo800 BUN 14 mg/dL 09/30/2015 Comp Metabolic Sto276 B/ C Ratio 18.2 Ratio 09/30/2015 Comp Metabolic Goj802 CA LCIUM 8.9 mg/dL 09/30/2015 Comp Metabolic Vqk905 AL K PHOS 65 U/L 09/30/2015 Comp Metabolic Oob033 T(SGOT) 26 U/L 09/30/2015 Comp Metabolic Jfq181 AL T(SGPT) 18 U/L 09/30/2015 Comp Metabolic Kdj970 BI LI T 0.6 mg/dL 09/30/2015 Comp Metabolic Ods477 AL BUMIN 3.8 g/dL 09/30/2015 Comp Metabolic Awe990 TP RO 6.6 g/dL 09/30/2015 Comp Metabolic Hkw119 GL OB 2.8 g/dL 09/30/2015 Comp Metabolic Deq004 A/ G Ratio 1.4 Ratio 09/30/2015 Comp Metabolic Den114 Os mo 274 mOsmo 09/30/2015 Cbc With [...] 27.7 pg 09/30/2015 Cbc With Differential Ord2 Harmon% 10.7 % 09/30/2015 Cbc With Differential Ord2 [...] 1.10 K/ul 09/30/2015 Cbc With Differential Ord2 Harmon ABS# 0.6 K/ul 09/30/2015 Cbc With Differential Ord2 Eos ABS# 0.2 K/ul 09/30/2015 Cbc With Differential Ord2 Baso ABS# 0.0 K/ul 09/30/2015 Cbc With Differential Ord2 New Analyzer Notice Please note new ref ranges s tarting 08-07-2015 due to implemntation of new five part differential hematolgy analyzer. 09/30/2015 Tsh Ord6 hTSH II 1.05 uIU/mL 03/06/2015 Comp Metabolic Ucs044 NA 137 mEq/L 03/06/2015 Comp Metabolic Bpj805 K 4.3 mEq/L 03/06/2015 Comp Metabolic Cmu394 CL 104 mEq/L 03/06/2015 Comp Metabolic Uoq581 CO2 28.0 mEq/L 03/06/2015 Comp Metabolic Lax268 AN ION GAP 9 03/06/2015 Comp Metabolic Byc836 GL UCOSE 93 mg/dL 03/06/2015 Comp Metabolic Szf362 Cr eat 0.8 mg/dL 03/06/2015 Comp Metabolic Nip572 eG FR 81 ml/min/1.73m2 03/06 Comp Metabolic Phd455 BUN 12 mg/dL 03/06/2015 Comp Metabolic Xgf912 B/ C Ratio 16.0 Ratio 03/06/2015 Comp Metabolic Ueg059 CA LCIUM 8.9 mg/dL 03/06/2015 Comp Metabolic Xzy114 AL K PHOS 56 U/L 03/06/2015 Comp Metabolic Mjm631 T(SGOT) 22 U/L 03/06/2015 Comp Metabolic Ggw981 AL T(SGPT) 15 U/L 03/06/2015 Comp Metabolic Dlq241 BI LI T 0.4 mg/dL 03/06/2015 Comp Metabolic Xqv906 AL BUMIN 4.0 g/dL 03/06/2015 Comp Metabolic Waw790 TP RO 6.5 g/dL 03/06/2015 Comp Metabolic Fdm279 GL OB 2.5 g/dL 03/06/2015 Comp Metabolic Qdd499 A/ G Ratio 1.6 Ratio 03/06/2015 Comp Metabolic Dnk050 Os mo 273 mOsmo 03/06/2015 Vitamin D 25 Oh Bcy2419 VITAMIN D, 25 HYDROXY 28.14 ng/mL 03/06/2015 [...] Result Effective Dates Constitutional No recent illness 02/03/2017 Constitutional No [...] Procedures Procedure Codes Date PPPS, SUBSEQ VISIT CPT-4: K5103Urcvuff 02/03/2017 ADMIN INFLUENZA VIRU S VAC CPT-4: I6222Lgfztpk 04/08/2016 ADMIN PNEUMOCOCCAL V ACCINE SNOMED CT: 89329709 CPT-4: C1404Ueepena 04/08/2016 PNEUMOCOCCAL VACC [address]: 35196134 CPT-4: 24901Iepocav 04/08/2016 FLU VACC PRSV FREE I NC ANTIG CPT-4: 85059Fvitwny 04/08/2016 Vital Signs Date Vital 02/03/2017 Blood Pressure 1: 138/72 Code: 8480-6 BMI: 41.2 Code: 87779-3 Heart Rate 1: 96 bpm Height: 5'7" SpO2: 97% Weight: 263 lbs 02/02/2017 Blood Pressure 1: 140/90 Code: 8480-6 BMI: 41.2 Code: 75903-6 Heart Rate 1: 103 bpm Height: 5'7" SpO2: 94% Weight: 263 lbs 11/26/2016 Blood Pressure 1: 152/88 Code: 8480-6 BMI: 41.0 Code: 72611-5 Heart Rate 1: 71 bpm Height: 5'7" SpO2: 94% Temperature: 37.7 (C ) / 99.8 (F) Weight: 262 lbs 10/07/2016 Blood Pressure 1: 148/82 Code: 8480-6 BMI: 41.7 Code: 25475-1 Heart Rate 1: 58 bpm Height: 5'7" SpO2: 96% Weight: 266 lbs 09/16/2016 Blood Pressure 1: 122/70 Code: 8480-6 BMI: 42.0 Code: 35567-6 Heart Rate 1: 65 bpm Height: 5'7" SpO2: 96% Weight: 268 lbs 09/07/2016 Blood Pressure 1: 154/60 Code: 8480-6 BMI: 42.3 Code: 61145-9 Heart Rate 1: 101 bpm Height: 5'7" SpO2: 97% Weight: 270 lbs 04/08/2016 Blood Pressure 1: 128/70 Code: 8480-6 BMI: 41.4 Code: 85319-8 Heart Rate 1: 62 bpm Height: 5'7" SpO2: 95% Weight: 264 lbs 8 oz 03/05/2016 Blood Pressure 1: 144/78 Code: 8480-6 Blood Pressure 1: 139/72 Code: 8480-6 BMI: 41.9 Code: 15749-0 Heart Rate 1: 71 bpm Height: 5'7" SpO2: 93% Weight: 267 lbs 8 oz 12/04/2015 Blood Pressure 1: 132/70 Code: 8480-6 BMI: 41.3 Code: 33835-3 Heart Rate 1: 56 bpm Height: 5'7" SpO2: 96% Weight: 264 lbs 11/18/2015 Blood Pressure 1: 138/72 Code: 8480-6 BMI: 41.0 Code: 46585-8 Heart Rate 1: 85 bpm Height: 5'7" SpO2: 93% Weight: 262 lbs 09/30/2015 Blood Pressure 1: 128/76 Code: 8480-6 BMI: 41.2 Code: 60804-0 Heart Rate 1: 70 bpm Height: 5'7" SpO2: 93% Weight: 263 lbs 09/09/2015 Blood Pressure 1: 138/80 Code: 8480-6 BMI: 40.3 Code: 62476-9 Heart Rate 1: 84 bpm Height: 5'7" SpO2: 95% Weight: 257 lbs 08/28/2015 Blood Pressure 1: 122/72 Code: 8480-6 BMI: 39.6 Code: 17214-7 Heart Rate 1: 75 bpm Height: 5'7" SpO2: 96% Weight: 253 lbs 07/09/2015 Blood Pressure 1: 135/78 Code: 8480-6 Blood Pressure 1: 140/78 Code: 8480-6 BMI: 39.5 Code: 65924-7 Heart Rate 1: 62 bpm Height: 5'7" SpO2: 95% Weight: 252 lbs 03/06/2015 Blood Pressure 1: 142/88 Code: 8480-6 BMI: 39.3 Code: 78528-4 Heart Rate 1: 65 bpm Height: 5'7" SpO2: 95% Weight: 251 lbs Functional Status No Functional Status data History of Present Illness Symptom Name Status Resu lt Effective Date Notes Annual Medicare Wellness Exam [...] Encounters Encounter Performer Loca tion Codes Date ([id number]) [id number] EST. [facility] Diagnosis: Paroxysmal atrial fibrillation[ICD10: I48.0] Diagnosis: Essential (primary) hypertension[ICD10: I10] Scarlett Spring MD, [facility] CPT-4: 66704 02/02/2017 [id number] EST. PATIENT, LEVEL III Diagnosis: Acute laryngopharyngitis[ICD10: J06.0] Diagnosis: Cough[ICD10: R05] Diagnosis: Pleurodynia[ICD10: R07.81] Diagnosis: Other dorsalgia[ICD10: M54.89] Kassandra Spring MD, [facility] CPT-4: 90743 11/26/2016 ([id number] [id number] EST. [facility] Diagnosis: Essential (primary) hypertension[ICD10: I10] Diagnosis: Pain in left knee[ICD10: M25.562] Diagnosis: Low back pain[ICD10: M54.5] Diagnosis: Major depressive disorder, recurrent, moderate[ICD10: F33.1] Scarlett Spring MD, [facility] CPT-4: 86472 10/07/2016 ([id number]) 75828 EST. [facility] Diagnosis: Essential (primary) hypertension[ICD10: I10] Diagnosis: Rash and other nonspecific skin eruption[ICD10: R21] Diagnosis: Major depressive disorder, recurrent, mild[ICD10: F33.0] Scarlett Spring MD, C CPT-4: 19334 09/16/2016 [id number] EST. PATIENT, LEVEL IV Diagnosis: Pain in left lower leg[ICD10: M79.662] Diagnosis: Pain in left knee[ICD10: M25.562] Kassandra Spring MD, [facility] CPT-4: 21240 09/07/2016 ([id number]) 42274 EST. P ATIENT, LEVEL IV Diagnosis: Encounter for immunization[ICD10: Z23] Diagnosis: Essential (primary) hypertension[ICD10: I10] Diagnosis: Mixed hyperlipidemia[ICD10: E78.2] Scarlett Spring MD, [facility] CPT- 4: 22194 04/08/2016 ([id number]) 41215 EST. P ATIENT, LEVEL III Diagnosis: Essential (primary) hypertension[ICD10: I10] Diagnosis: Shortness of breath[ICD10: R06.02] Scarlett Spring MD, [facility] CPT- 4: 91328 03/05/2016 ([id number]) 44921 EST. P ATIENT, LEVEL III Diagnosis: Chronic obstructive pulmonary disease, unspecified[ICD10: J44.9] Scarlett Spring MD, [facility] CPT-4: 52137 12/04/2015 ([id number]) 84790 EST. P ATIENT, LEVEL IV Diagnosis: Essential (primary) hypertension[ICD10: I10] Diagnosis: Allergic rhinitis due to pollen[ICD10: J30.1] Scarlett Spring MD, [facility] CPT-4: 83577 11/18/2015 ([id number]) 78775 EST. P ATIENT, LEVEL IV Diagnosis: Localized edema[ICD10: R60.0] Diagnosis: Dysuria[ICD10: R30.0] Diagnosis: Essential (primary) hypertension[ICD10: I10] Diagnosis: Nausea[ICD10: R11.0] Alis Spring MD, [facility] CPT-4: 87023 09/30/2015 ([id number]) 02753 EST. P ATIENT, LEVEL II Diagnosis: Methicillin susceptible Staphylococcus aureus infection as the cause of diseases classified elsewhere[ICD10: B95.61] Diagnosis: Methicillin susceptible Staphylococcus aureus infection, unspecified site[ICD10: A49.01] Alis Spring MD, [facility] CPT-4: 62716 09/09/2015 ([id number]) 84984 EST. P ATIENT, LEVEL III Diagnosis: Dermatophytosis, unspecified[ICD10: B35.9] Diagnosis: Rash and other nonspecific skin eruption[ICD10: R21] Scarlett Spring MD, [facility] CPT-4: 68499 08/28/2015 ([id number]) 12277 EST. P ATIENT, LEVEL IV Diagnosis: Essential (primary) hypertension[ICD10: I10] Diagnosis: Gastro-esophageal reflux disease without esophagitis[ICD10: K21.9] Diagnosis: Other dorsalgia[ICD10: M54.89] Scarlett Spring MD, [facility] CPT-4: 85303 07/09/2015 ([id number]) OFFICE [facility] - LEVEL 4 Diagnosis: ESSENTIAL HYPERTENSION[ICD9: 401.9] Diagnosis: Osteoporosis[ICD9: 733.00] Diagnosis: Back pain[ICD9: 724.5] Diagnosis: Insomnia[ICD9: 780.52] Diagnosis: ESOPHAGEAL REFLUX[ICD9: 530.81] Scarlett Spring MD, [facility] CPT-4: 51989 03/06/2015 Plan of Care Planned Activity Notes C odes Status Date Visit Plan: Medicare Exam - today we dis cussed the patients past history, immunizations, preventative exams/evaluations [...] risk and to maintain independence in the home.Today we discussed the need for the patient to create paperwork for Advanced directives as well as for the patient to provide this office with a copy of her DOPA paperwork for health care surrogate.New onset A. Fib yesterday - Defer to cardiology 02/03/2017 Patient Education: Patient Medication Summary Completed 02/03/2017 Patient Education: Obesity Completed 02/03/2017 Visit Plan: Atrial fibrillation - appt w hermelinda corley today at 1pm - pt's ekg showed acute atrial fibrillation.Hypertension - well controlled - continue with current medications, continue with no added salt diet. Pt has been encouraged to exercise daily.The pt has been advised to call the office if there are any acute concerns about change in blood pressure readings at home. 2016 Appointment: Scar[facility] [phone] [id number] (15 min) Moderate 02/02/2017 Patient Education: Patient Medication Summary Completed 02/02/2017 Patient Education: Obesity Completed 02/02/2017 Patient Education: Hypertension Completed 02/02/2017 Visit Plan: URI - Pt advised to increase fluids, vitamin C. Discussed natural and expected course of this diagnosis and need to alert me if symptoms do not follow expected course, or if any worse. RX sent to patient's pharmacy.Allergies - chronic - recommended pt to use allergy medication as prescribed. Pt has been counseled as to the appropriate use of the medication. Pt to call if allergy symptoms are not controlled with the medication.If using nasal spray, instructions as follows: Nasal spray- use twice daily, one spray per nostril twice daily, after 30 minutes, rinse out nose with saline spray.. Use opposite hand per nostril to spray in the nasal steroid allergy spray.Rib/Back pain - The pt is to use prn antiinflammatories to manage acute pain. The patient is to call the office if the pain is worsening or does not improve. 2016 Appointment: [facility] [phone] [id number] (30 min) Complex 11/26/2016 Patient Education: Patient Medication Summary Completed 11/26/2016 Visit Plan: Hypertension - well controll ed - continue with current medications, continue with no added salt diet. Pt has been encouraged to exercise daily.The pt has been advised to call the office if there are any acute concerns about change in blood pressure readings at home.Chronic Depression and anxiety - the pt has symptoms of chronic anxiety and depression that have been fairly well controlled since the last office visit. The pt has expected periods of exacerbation with abatement of the symptoms with change in situational exposure. No change in current medications.Arthritis- occasionally uncontrolled symptoms- recommend pt to take antiinflammatory as directed for pain control.Use tylenol for break through pain symptoms. 10/07/2016 Appointment: Scar[facility] [phone] [id number] [place] (15 min) Moderate 10/07/2016 Patient Education: Patient Medication Summary Completed 10/07/2016 Patient Education: Obesity Completed 10/07/2016 Patient Education: Hypertension Completed 10/07/2016 Care Plan: VASCULAR STUDY Pending 10/04/2016 Care Plan: X-RAY EXAM OF KNEE [address] [facility] : [id number] Pending 10/04/2016 Visit Plan: Hypertension - well controll ed - continue with current medications, continue with no added salt diet. Pt has been encouraged to exercise daily.The pt has been advised to call the office if there are any acute concerns about change in blood pressure readings at home.Rash - continue current treatment.Depression - RX for paroxetine 09/16/2016 Appointment: Scarlett Spring WPtel: [facility] [place] [facility] [id number] [place] (15 min) Moderate 09/16/2016 Patient Education: Patient Medication Summary Completed 09/16/2016 Patient Education: Obesity Completed 09/16/2016 Patient Education: Hypertension Completed 09/16/2016 Visit Plan: Left knee pain, left calf pa in - Will order x-ray, US - The pt is to use prn antiinflammatories to manage acute pain. The patient is to call the office if the pain is worsening or does not improve. 09/07/2016 App[facility]ment: Kass[facility] Argu[facility]el[facility] [phone] [id number] [place] (10 min) Simple 09/07/2016 Patient Education: Patient Medication Summary Completed 09/07/2016 Patient Education: Obesity Completed 09/07/2016 Visit Plan: Hypertension - well controll ed - continue with current medications, continue with no added salt diet. Pt has been encouraged to exercise daily.The pt has been advised to call the office if there are any acute concerns about change in blood pressure readings at home.Hyperlipidemia - pt has been counseled about appropriate [...] and to assure normal liver response to medications.pneumovax and flu shot todaymammogram order 04/08/2016 Appointment: Scarlett Spring WPtel: [phone] [facility] (15 min) Moderate 04/08/2016 Patient Education: Patient Medication Summary Completed 04/08/2016 Patient Education: Obesity Completed 04/08/2016 Patient Education: Hypertension Completed 04/08/2016 Visit Plan: Hypertension - well controll ed - continue with current medications, continue with no added salt diet. Pt has been encouraged to exercise daily.The pt has been advised to call the office if there are any acute concerns about change in blood pressure readings at home.cortisone q10 - or hydrocortisone - this is an over the counter medication - that is not as potent as the prescription medication - but should help to decrease the irritation on the skin that you have been treating - I want you to use this on the affected skin tissue three times daily x 10 days. 03/05/2016 Appointment: Scarlett Spring WPtel: [phone] [id number] (15 min) Moderate 03/05/2016 Patient Education: Patient Medication Summary Completed 03/05/2016 Visit Plan: COPD - chronic problem for t his patient. We have reviewed chronic treatment strategy, symptom control, and plans for acute exacerbations. No changes today to the current treatment plan as the patient is stable, monitor for acute changes.anoro samples given to the patient 12/04/2015 Appointment: Scarlett Spring WPtel: [phone] [facility] [place] (15 min) Moderate 12/04/2015 Patient Education: [...] the office next week for practitioner to review.The pt is to call for acute concerns.Allergies - chronic - recommended pt to use allergy medication as prescribed. Pt has been counseled as to the appropriate use of the medication. Pt to call if allergy symptoms are not controlled with the medication.If using nasal spray, instructions as follows: Nasal spray- use twice daily, one spray per nostril twice daily, after 30 minutes, rinse out nose with saline spray.. Use opposite hand per nostril to spray in the nasal steroid allergy spray. 11/18/2015 Appointment: Scarlett Spring WPtel: [phone] [facility] (15 min) Moderate 11/18/2015 Patient Education: Patient Medication Summary Completed 11/18/2015 Patient Education: Obesity Completed 11/18/2015 Patient Education: Hypertension Completed 11/18/2015 Appointment: Scarlett Spring WPtel: [phone] [facility] (15 min) Moderate 11/07/2015 Visit Plan: Hypertension - well controll ed - continue with current medications, continue with no added salt diet. Pt has been encouraged to exercise daily.The pt has been advised to call the office if there are any acute concerns about change in blood pressure readings at home.Edema - pt has been advised to elevate legs to prevent dependent edema, compression has been recommended to help to naturally decrease peripheral edema. Diuretic use has been discussed and pt has been instructed in appropriate use of such medication as necessary to further attempt to reduce peripheral edema.Dysuria-UA negative-will send in a RX for diflucan Nausea-check labs-recommend probiotic if diarrhea develops-call if symptoms do not resolve or if any worse 09/30/2015 Appointment: (15 min) Moderate 09/30/2015 Patient Education: Patient Medication Summary Completed 09/30/2015 Patient Education: Obesity Completed 09/30/2015 Patient Education: Hypertension Completed 09/30/2015 Visit Plan: MSSA of groin and under yoon [id number] bactrim and call if rash does not completely resolve 09/09/2015 Appointment: (15 min) Moderate 09/09/2015 Patient Education: Patient Medication Summary Completed 09/09/2015 Visit Plan: Rash - dermatophytosis - rec ommended oral diflucan, topical nystatin cream, rtc in 10 days to assure healing.check of culture - may need to consider treatment with antibiotic depending on the groin culture report. 2015 Appointment: Scarlett [place] [facility]Ptel[facility] [phone] [id number] (15 min) Moderate 08/28/2015 Patient Education: Patient Medication Summary Completed 08/28/2015 Care Plan: Ariela PRIEST RTS Cultured from groin Pending 08/28/2015 Visit Plan: Hypertension - well controll ed - continue with current medications, continue with no added salt diet. Pt has been encouraged to exercise daily.The pt has been advised to call the office if there are any acute concerns about change in blood pressure readings at home.Back pain - bolster pillow or lumbar support pillow to use when seated to help support your lower back - for sure want to use one when on a trip in a car.Esophageal Reflux - the patient has been counseled against excessive intake of caffeine, spicy foods, peppermint, and cinnamon - all of which can exacerbate esophageal reflux.The patient is to take medications as prescribed and call the office if the symptoms are not improving. 07/09/2015 Appointment: Scarlett Spring WPtel[facility] [phone] [id number] (15 min) Moderate 07/09/2015 Patient Education: Patient Medication Summary Completed 07/09/2015 Patient Education: Hypertension Completed 07/09/2015 Visit Plan: Hypertension - well controll ed - continue with current medications, continue with no added salt diet. Pt has been encouraged to exercise daily.The pt has been advised to call the office if there are any acute concerns about change in blood pressure readings at home.Insomnia - Pt has been advised to increase the light in the house during the day, and start dimming the lights during the evening hours.Pt has been advised to cut out caffeine after 5pm.Daytime napping worsens night time insomnia.Chronic Back pain - the patient was counseled [...] in the patient's termination from this medical practice.Esophageal Reflux - the patient has been counseled against excessive intake of caffeine, spicy foods, peppermint, and cinnamon - all of which can exacerbate esophageal reflux.The patient is to take medications as prescribed and call the office if the symptoms are not improving. 03/06/2015 Appointment: Scarlett Spring WPtel: [address] [place], [place] [id number] [place] (S) New Patient 03/06/2015 Patient Education: [...] or does not improve. . Rash - dermatophyt osis - recommended [...]
--- OUTSIDE RECORDS SUMMARY | 2020-01-23 14:23 | XMS REPORT | CCD ---
Author Author Jeannine Spring Organization Scarlett Spring MD, [facility] Address [address] [place] [address] Phone Care Team Providers Care Event Designer Name Role Phone PP Unavailable CCM Unavailable Summary Purpose Interface Exchange Insurance Providers Payer name Policy type / Coverage type Covered democrat ID Effective Begin Date Effective End Date WPS Medicare Part B Medicare Part B [id number] Unknown Unknown F[employer] Medicare Part B [id number] Unknown Unkno wn Family history Mother Diagnosis Age At Onset Hypertension Unknown Heart Attack Unknown Brother Diagnosis Age At Onset Heart disease Unknown Runs in the family Diagnosis Age At Onset Heart disease Unknown Daughter Diagnosis Age At Onset Heart Attack Unknown Hyperlipidemia Unknown Hypertension Unknown Social History Social History Element Codes Description Effective Dates Number of children Unknown 2 daughter lives in [place], son - does not have contact 09/16/[address]: 2681514 Quit over 10 years ago 1990 - previously smoked 2ppd x 25 years. 11/18/2015 Marital status Unknown [place]owed in 201003/06/2015 Employment Unknown Retir ed was a [employer] 03/06/2015 Allergies, Adverse Reactions, Alerts Allergies, [...] #3 3 00 mg-30 mg tablet RxNorm: 649841 1 Tablet(s) PO QID as needed 02/02/2017 03/03/2017 Ac tive metoprolol succinate ER 50 mg tablet,extended release 24 hr RxNorm: 301618 TAKE ONE TABLET BY MOUTH ONCE DAILY 12/23/2016 02/02/2017 Inactive Zithromax Z-Ted 250 mg tablet RxNorm: 738302 1 Tablet(s) PO UD 11/26/2016 No Stop Date Active trazodone 50 mg tablet RxNorm: 544417 TAKE ONE TABLET BY MOUTH ONCE DAILY 11/12/2016 03/11/2017 Ac tive Ambien 10 mg tablet RxNorm: 125275 Tablet(s) TAKE ONE TABLET BY MOUTH AT [facility] 10/22/2016 02/16/2017 Ac tive paroxetine 20 mg tablet RxNorm: 6359118 1 Tablet(s) PO daily TAKE ONE TABLET BY MOUTH DAILY 09/16/2016 06/12/2017 Active Protonix 40 mg table t,delayed release RxNorm: 867972 1 Tablet(s) PO daily 09/16/2016 03/14/2017 Ac tive sucralfate 1 gram ta blet RxNorm: 233954 1 Tablet(s) PO TID 09/16/2016 01/13/2017 Inactive meloxicam 7.5 mg tablet RxNorm: 861440 1 Tablet(s) PO daily 09/16/2016 11/14/2016 Inactive Ambien 10 mg tablet RxNorm: 412376 Tablet(s) TAKE ONE TABLET BY MOUTH AT [facility] 08/24/2016 10/21/2016 Inactive trazodone 50 mg tablet RxNorm: 944011 Tablet(s) TAKE ONE TABLET BY MOUTH DAILY 07/29/2016 11/11/2016 In active Ambien 10 mg tablet RxNorm: 705247 TAKE ONE TABLET BY MOUTH AT BEDTIME 06/23/2016 07/21/2016 In active Ambien 10 mg tablet RxNorm: 894516 Tablet(s) TAKE ONE TABLET BY MOUTH EVERY NIGHT AT BEDTIME 06/22/2016 06/23/2016 Inactive Ambien 10 mg tablet RxNorm: 800025 Tablet(s) TAKE ONE TABLET BY MOUTH EVERY NIGHT AT BEDTIME 04/03/2016 05/31/2016 Inactive Lasix 40 mg tablet RxNorm: 615127 1 Tablet(s) PO daily as needed for swell ing 04/03/2016 09/15/2016 In active potassium chloride E R 20 mEq tablet,extended release RxNorm: 363596 1 Tablet(s) PO daily for swelling take with lasix as needed 04/03/2016 09/15/2016 Inactive omeprazole 20 mg cap [place],delayed release RxNorm: 249964 TAKE ONE CAPSULE BY M OUTH EVERY NIGHT AT BEDTIME 03/31/2016 09/15/2016 Inactive paroxetine 20 mg tablet RxNorm: 5717920 TAKE ONE TABLET BY MOUTH DAILY 03/31/2016 09/15/2016 In active trazodone 50 mg tablet RxNorm: 875323 TAKE ONE TABLET BY MOUTH DAILY 03/20/2016 07/28/2016 In active terazosin 5 mg capsule RxNorm: 087176 TAKE ONE CAPSULE BY MOUTH DAILY 03/06/2016 10/06/2016 In active Ambien 10 mg tablet RxNorm: 775922 Tablet(s) TAKE ONE TABLET BY MOUTH EVERY NIGHT AT BEDTIME 01/17/2016 04/02/2016 Inactive loratadine 10 mg tablet RxNorm: 914272 1 Tablet(s) PO daily 01/15/2016 09/15/2016 Inactive mupirocin 2 % topica l ointment RxNorm: 926936 1 Application TOP TID 11/18/2015 12/01/2015 Inactive metoprolol succinate ER 50 mg tablet,extended release 24 hr RxNorm: 782948 1 Tablet(s) PO daily 11/18/2015 11/11/2016 Inactive loratadine 10 mg tablet RxNorm: 421867 1 Tablet(s) PO daily 11/18/2015 01/14/2016 Inactive Lasix 40 mg tablet RxNorm: 373476 1 Tablet(s) PO daily as needed for swell ing 10/30/2015 11/28/2015 In active potassium chloride E R 20 mEq tablet,extended release RxNorm: 930134 1 Tablet(s) PO daily for swelling take with lasix as needed 10/30/2015 11/28/2015 Inactive Tylenol-Codeine #3 3 00 mg-30 mg tablet RxNorm: 550785 1 Tablet(s) PO QID as needed 10/25/2015 02/01/2017 In active Ambien 10 mg tablet RxNorm: 649571 Tablet(s) TAKE ONE TABLET BY MOUTH EVERY NIGHT AT BEDTIME 10/18/2015 01/13/2016 Inactive Diflucan 150 mg tablet RxNorm: 199758 1 Tablet(s) PO daily 10/01/2015 12/03/2015 Inactive Lasix 20 mg tablet RxNorm: 118222 1 Tablet(s) PO PRN fror swelling 09/27/2015 10/29/2015 In active potassium chloride E R 10 mEq capsule,extended release RxNorm: 889690 1 Capsule(s) PO PRN for swelling take with lasix 09/27/2015 10/29/2015 Inactive Bactrim DS 800 mg-16 0 mg tablet RxNorm: 831494 1 Tablet(s) PO BID 09/02/2015 09/11/2015 Inactive Bactrim DS 800 mg-16 0 mg tablet RxNorm: 250698 1 Tablet(s) PO BID 09/02/2015 09/01/2015 Inactive nystatin 100,000 uni t/gram topical cream RxNorm: 421679 1 Gram(s) TOP TID 08/28/2015 09/26/2015 In active Diflucan 150 mg tablet RxNorm: 060702 1 Tablet(s) PO daily 08/28/2015 09/06/2015 Inactive betamethasone diprop ionate 0.05 % topical ointment RxNorm: 531101 1 Application TOP TID to affected area 08/02/2015 02/01/2017 Inactive nystatin 100,000 uni t/gram topical powder RxNorm: 171979 1 Gram(s) TOP QID 07/09/2015 08/01/2015 In active Ambien 10 mg tablet RxNorm: 378738 1 Tablet(s) PO QHS 06/19/2015 06/18/2015 Inactive Ambien 10 mg tablet RxNorm: 207127 TAKE ONE TABLET BY MOUTH EVERY NIGHT AT BEDTIME 06/19/2015 09/16/2015 Inactive Vitamin D2 50,000 un it capsule RxNorm: 824247 1 Capsule(s) PO QW 03/07/2015 03/06/2015 Inactive Vitamin D2 50,000 un it capsule RxNorm: 547382 1 Capsule(s) PO QW 03/07/2015 05/05/2015 Inactive terazosin 5 mg capsule RxNorm: 236550 1 Capsule(s) PO daily 03/06/2015 02/28/2016 Inactive [SAVINGS FOR NON-COVERED DRUGS -- BIN:00 4905, PCN: ASPROD1, Group: XXXXX, ID# XXXXXXX, Questions: . THIS IS NOT INSURANCE.] trazodone 50 mg tablet RxNorm: 834706 1 Tablet(s) PO daily 03/06/2015 02/28/2016 Inactive paroxetine 20 mg tablet RxNorm: 8432356 1 Tablet(s) PO daily 03/06/2015 02/28/2016 Inactive Tylenol-Codeine #3 3 00 mg-30 mg tablet RxNorm: 869321 1 Tablet(s) PO QID as needed 03/06/2015 07/02/2015 In active amlodipine 10 mg tablet RxNorm: 612017 1 Tablet(s) PO daily 03/06/2015 11/17/2015 Inactive metoprolol succinate ER 25 mg tablet,extended release 24 hr RxNorm: 617190 1 Tablet(s) PO daily 03/06/2015 11/17/2015 Inactive omeprazole 20 mg cap [place],delayed release RxNorm: 022552 1 Capsule(s) PO QHS 03/06/2015 02/28/2016 In active omeprazole 20 mg cap [place],delayed release RxNorm: 819887 1 Capsule(s) PO QHS 01/31/2015 01/30/2015 In active omeprazole 20 mg cap [place],delayed release RxNorm: 991275 1 Capsule(s) PO QHS 01/31/2015 01/30/2015 In active omeprazole 20 mg cap [place],delayed release RxNorm: 313129 1 Capsule(s) PO QHS 01/31/2015 03/05/2015 In active Ambien 10 mg tablet RxNorm: 730428 1 Tablet(s) PO QHS 12/25/2014 04/21/2015 Inactive paroxetine 20 mg tablet RxNorm: 335165 1 Tablet(s) PO daily 12/25/2014 12/24/2014 Inactive Ambien 10 mg tablet RxNorm: 356280 1 Tablet(s) PO QHS 12/25/2014 12/24/2014 Inactive paroxetine 20 mg tablet RxNorm: 517148 1 Tablet(s) PO daily 12/25/2014 03/05/2015 Inactive terazosin 5 mg capsule RxNorm: 774054 1 Capsule(s) PO daily 11/23/2014 03/05/2015 Inactive [SAVINGS FOR NON-COVERED DRUGS -- BIN:00 8464, PCN: ASPROD1, Group: XXXXX, ID# XXXXXXX, Questions: . THIS IS NOT INSURANCE.] terazosin 5 mg capsule RxNorm: 833161 1 Capsule(s) PO daily 11/23/2014 11/22/2014 Inactive Lasix 20 mg tablet RxNorm: 856366 1 Tablet(s) PO daily No Start Date Active K-Dur 10 mEq tablet, extended release RxNorm: 140751 1 Tablet(s) PO daily No Start Date Active Eliquis 5 mg tablet RxNorm: 0319946 1 Tablet(s) PO BID No Start Date Active Vitamin D3 2,000 uni t tablet RxNorm: 692973 1 Tablet(s) PO daily No Start Date Active isosorbide mononitra te ER 30 mg tablet,extended release 24 hr RxNorm: 549523 1 Tablet(s) PO daily No Start Date Active Zetia 10 mg tablet RxNorm: 888867 1 Tablet(s) PO daily No Start Date Active Lipitor 80 mg tablet RxNorm: 419299 1/2 Tablet(s) PO daily No Start Date Active metoprolol succinate ER 100 mg tablet,extended release 24 hr RxNorm: 249549 1 Tablet(s) PO daily No Start Date Active metoprolol succinate ER 25 mg tablet,extended release 24 hr RxNorm: 790710 1 Tablet(s) PO daily No Start Date 03/05/2015 Inactive betamethasone diprop ionate 0.05 % topical ointment RxNorm: 085654 1 Application TOP TID to affected area No Start Date 08/01/2015 Inactive trazodone 50 mg tablet RxNorm: 169557 1 Tablet(s) PO daily No Start Date 03/05/2015 Inactive potassium chloride E R 10 mEq capsule,extended release RxNorm: 730014 1 Capsule(s) PO PRN for swelling take with lasix No Start Date 09/26/2015 Inactive amlodipine 10 mg tablet RxNorm: 149803 1 Tablet(s) PO daily No Start Date 03/05/2015 Inactive aspirin 81 mg tablet ,delayed release RxNorm: 958860 1 Tablet(s) PO daily No Start Date 02/02/2017 Inactive Lasix 20 mg tablet RxNorm: 789001 1 Tablet(s) PO PRN fror swelling No Start Date 09/26/2015 Inactive Crestor 40 mg tablet RxNorm: 064780 1 Tablet(s) PO daily No Start Date [...] Item Item Code Result Date Comp Metabolic Mwd844 NA 137 mEq/L 09/30/2015 Comp Metabolic Wao143 K 4.5 mEq/L 09/30/2015 Comp Metabolic Wnh990 CL 102 mEq/L 09/30/2015 Comp Metabolic Zun407 CO2 26.0 mEq/L 09/30/2015 Comp Metabolic Yeo604 AN ION GAP 14 09/30/2015 Comp Metabolic Ebn841 GL UCOSE 89 mg/dL 09/30/2015 Comp Metabolic Ots777 Cr eat 0.8 mg/dL 09/30/2015 Comp Metabolic Uhk062 eG FR 79 ml/min/1.73m2 09/29 Comp Metabolic Jua975 BUN 14 mg/dL 09/30/2015 Comp Metabolic Miy767 B/ C Ratio 18.2 Ratio 09/30/2015 Comp Metabolic Vyr304 CA LCIUM 8.9 mg/dL 09/30/2015 Comp Metabolic Azg901 AL K PHOS 65 U/L 09/30/2015 Comp Metabolic Xhz931 T(SGOT) 26 U/L 09/30/2015 Comp Metabolic Dkf928 AL T(SGPT) 18 U/L 09/30/2015 Comp Metabolic Asu766 BI LI T 0.6 mg/dL 09/30/2015 Comp Metabolic Byc791 AL BUMIN 3.8 g/dL 09/30/2015 Comp Metabolic Mek917 TP RO 6.6 g/dL 09/30/2015 Comp Metabolic Iom687 GL OB 2.8 g/dL 09/30/2015 Comp Metabolic Wth826 A/ G Ratio 1.4 Ratio 09/30/2015 Comp Metabolic Lpi473 Os mo 274 mOsmo 09/30/2015 Cbc With [...] 27.7 pg 09/30/2015 Cbc With Differential Ord2 [place]% 10.7 % 09/30/2015 Cbc With Differential Ord2 [...] 1.10 K/ul 09/30/2015 Cbc With Differential Ord2 [place] ABS# 0.6 K/ul 09/30/2015 Cbc With Differential Ord2 Eos ABS# 0.2 K/ul 09/30/2015 Cbc With Differential Ord2 Baso ABS# 0.0 K/ul 09/30/2015 Cbc With Differential Ord2 New Analyzer Notice Please note new ref ranges s tarting 08-07-2015 due to implemntation of new five part differential hematolgy analyzer. 09/30/2015 Tsh Ord6 hTSH II 1.05 uIU/mL 03/06/2015 Comp Metabolic Let303 NA 137 mEq/L 03/06/2015 Comp Metabolic Nla519 K 4.3 mEq/L 03/06/2015 Comp Metabolic Txr820 CL 104 mEq/L 03/06/2015 Comp Metabolic Idv439 CO2 28.0 mEq/L 03/06/2015 Comp Metabolic Oxo331 AN ION GAP 9 03/06/2015 Comp Metabolic Krb962 GL UCOSE 93 mg/dL 03/06/2015 Comp Metabolic Woi535 Cr eat 0.8 mg/dL 03/06/2015 Comp Metabolic Xnz031 eG FR 81 ml/min/1.73m2 03/06 Comp Metabolic Luf764 BUN 12 mg/dL 03/06/2015 Comp Metabolic Hyb291 B/ C Ratio 16.0 Ratio 03/06/2015 Comp Metabolic Cby945 CA LCIUM 8.9 mg/dL 03/06/2015 Comp Metabolic Ksc458 AL K PHOS 56 U/L 03/06/2015 Comp Metabolic Rby990 T(SGOT) 22 U/L 03/06/2015 Comp Metabolic Xqx025 AL T(SGPT) 15 U/L 03/06/2015 Comp Metabolic Rju224 BI LI T 0.4 mg/dL 03/06/2015 Comp Metabolic Lks699 AL BUMIN 4.0 g/dL 03/06/2015 Comp Metabolic Yhc947 TP RO 6.5 g/dL 03/06/2015 Comp Metabolic Mkr165 GL OB 2.5 g/dL 03/06/2015 Comp Metabolic Vqy255 A/ G Ratio 1.6 Ratio 03/06/2015 Comp Metabolic Mxw015 Os mo 273 mOsmo 03/06/2015 Vitamin D 25 Oh The7542 VITAMIN D, 25 HYDROXY 28.14 ng/mL 03/06/2015 [...] Procedure Codes Date PPPS, SUBSEQ VISIT CPT-4: D2859Faexfqd 02/03/2017 ADMIN INFLUENZA VIRU S VAC CPT-4: M4399Agzblbl 04/08/2016 ADMIN PNEUMOCOCCAL V ACCINE SNOMED CT: 96485356 CPT-4: Z0829Uorsgio 04/08/2016 PNEUMOCOCCAL VACC [address]: 78862368 CPT-4: 83377Ncfoapy 04/08/2016 FLU VACC PRSV FREE I NC ANTIG CPT-4: 97245Ixdmahd 04/08/2016 Vital Signs Date Vital 02/03/2017 Blood Pressure 1: 138/72 Code: 8480-6 BMI: 41.2 Code: 02138-8 Heart Rate 1: 96 bpm Height: 5'7" SpO2: 97% Weight: 263 lbs 02/02/2017 Blood Pressure 1: 140/90 Code: 8480-6 BMI: 41.2 Code: 33605-7 Heart Rate 1: 103 bpm Height: 5'7" SpO2: 94% Weight: 263 lbs 11/26/2016 Blood Pressure 1: 152/88 Code: 8480-6 BMI: 41.0 Code: 19040-0 Heart Rate 1: 71 bpm Height: 5'7" SpO2: 94% Temperature: 37.7 (C ) / 99.8 (F) Weight: 262 lbs 10/07/2016 Blood Pressure 1: 148/82 Code: 8480-6 BMI: 41.7 Code: 81874-9 Heart Rate 1: 58 bpm Height: 5'7" SpO2: 96% Weight: 266 lbs 09/16/2016 Blood Pressure 1: 122/70 Code: 8480-6 BMI: 42.0 Code: 71883-8 Heart Rate 1: 65 bpm Height: 5'7" SpO2: 96% Weight: 268 lbs 09/07/2016 Blood Pressure 1: 154/60 Code: 8480-6 BMI: 42.3 Code: 64786-8 Heart Rate 1: 101 bpm Height: 5'7" SpO2: 97% Weight: 270 lbs 04/08/2016 Blood Pressure 1: 128/70 Code: 8480-6 BMI: 41.4 Code: 97978-0 Heart Rate 1: 62 bpm Height: 5'7" SpO2: 95% Weight: 264 lbs 8 oz 03/05/2016 Blood Pressure 1: 144/78 Code: 8480-6 Blood Pressure 1: 139/72 Code: 8480-6 BMI: 41.9 Code: 62328-6 Heart Rate 1: 71 bpm Height: 5'7" SpO2: 93% Weight: 267 lbs 8 oz 12/04/2015 Blood Pressure 1: 132/70 Code: 8480-6 BMI: 41.3 Code: 89249-8 Heart Rate 1: 56 bpm Height: 5'7" SpO2: 96% Weight: 264 lbs 11/18/2015 Blood Pressure 1: 138/72 Code: 8480-6 BMI: 41.0 Code: 48855-1 Heart Rate 1: 85 bpm Height: 5'7" SpO2: 93% Weight: 262 lbs 09/30/2015 Blood Pressure 1: 128/76 Code: 8480-6 BMI: 41.2 Code: 90693-4 Heart Rate 1: 70 bpm Height: 5'7" SpO2: 93% Weight: 263 lbs 09/09/2015 Blood Pressure 1: 138/80 Code: 8480-6 BMI: 40.3 Code: 45629-4 Heart Rate 1: 84 bpm Height: 5'7" SpO2: 95% Weight: 257 lbs 08/28/2015 Blood Pressure 1: 122/72 Code: 8480-6 BMI: 39.6 Code: 48993-5 Heart Rate 1: 75 bpm Height: 5'7" SpO2: 96% Weight: 253 lbs 07/09/2015 Blood Pressure 1: 140/78 Code: 8480-6 Blood Pressure 1: 135/78 Code: 8480-6 BMI: 39.5 Code: 21997-5 Heart Rate 1: 62 bpm Height: 5'7" SpO2: 95% Weight: 252 lbs 03/06/2015 Blood Pressure 1: 142/88 Code: 8480-6 BMI: 39.3 Code: 64022-3 Heart Rate 1: 65 bpm Height: 5'7" [...] Encounters Encounter Performer Loca tion Codes Date ([id number]) [id number] EST. P [facility], LEVEL IV Diagnosis: Paroxysmal atrial fibrillation[ICD10: I48.0] Diagnosis: Essential (primary) hypertension[ICD10: I10] Scarlett Spring MD, [facility] CPT-4: 43786 02/02/2017 [id number] EST. PATIENT, LEVEL III Diagnosis: Acute laryngopharyngitis[ICD10: J06.0] Diagnosis: Cough[ICD10: R05] Diagnosis: Pleurodynia[ICD10: R07.81] Diagnosis: Other dorsalgia[ICD10: M54.89] Kassandra Spring MD, [facility] CPT-4: 10629 11/26/2016 ([id number] 31939 EST. P [facility], LEVEL IV Diagnosis: Essential (primary) hypertension[ICD10: I10] Diagnosis: Pain in left knee[ICD10: M25.562] Diagnosis: Low back pain[ICD10: M54.5] Diagnosis: Major depressive disorder, recurrent, moderate[ICD10: F33.1] Scarlett Spring MD, [facility] CPT-4: 60326 10/07/2016 ([id number]) 62861 EST. P [facility], LEVEL IV Diagnosis: Essential (primary) hypertension[ICD10: I10] Diagnosis: Rash and other nonspecific skin eruption[ICD10: R21] Diagnosis: Major depressive disorder, recurrent, mild[ICD10: F33.0] Scarlett Spring MD, C CPT-4: 41236 09/16/2016 49913 EST. PATIENT, LEVEL IV Diagnosis: Pain in left lower leg[ICD10: M79.662] Diagnosis: Pain in left knee[ICD10: M25.562] Kassandra Spring MD, [facility] CPT-4: 20885 09/07/2016 ([id number]) 49616 EST. P ATIENT, LEVEL IV Diagnosis: Encounter for immunization[ICD10: Z23] Diagnosis: Essential (primary) hypertension[ICD10: I10] Diagnosis: Mixed hyperlipidemia[ICD10: E78.2] Scarlett Spring MD, [facility] CPT- 4: 33830 04/08/2016 ([id number]) 99470 EST. P ATIENT, LEVEL III Diagnosis: Essential (primary) hypertension[ICD10: I10] Diagnosis: Shortness of breath[ICD10: R06.02] Scarlett Spring MD, [facility] CPT- 4: 51308 03/05/2016 ([id number]) 85712 EST. P ATIENT, LEVEL III Diagnosis: Chronic obstructive pulmonary disease, unspecified[ICD10: J44.9] Scarlett Spring MD, [facility] CPT-4: 51847 12/04/2015 ([id number]) 61571 EST. P ATIENT, LEVEL IV Diagnosis: Essential (primary) hypertension[ICD10: I10] Diagnosis: Allergic rhinitis due to pollen[ICD10: J30.1] Scarlett Spring MD, [facility] CPT-4: 00808 11/18/2015 ([id number]) 78302 EST. P ATIENT, LEVEL IV Diagnosis: Localized edema[ICD10: R60.0] Diagnosis: Dysuria[ICD10: R30.0] Diagnosis: Essential (primary) hypertension[ICD10: I10] Diagnosis: Nausea[ICD10: R11.0] Alis Spring MD, [facility] CPT-4: 46017 09/30/2015 ([id number]) 78517 EST. P ATIENT, LEVEL II Diagnosis: Methicillin susceptible Staphylococcus aureus infection as the cause of diseases classified elsewhere[ICD10: B95.61] Diagnosis: Methicillin susceptible Staphylococcus aureus infection, unspecified site[ICD10: A49.01] Alis Spring MD, [facility] CPT-4: 55374 09/09/2015 ([id number]) 82490 EST. P ATIENT, LEVEL III Diagnosis: Dermatophytosis, unspecified[ICD10: B35.9] Diagnosis: Rash and other nonspecific skin eruption[ICD10: R21] Scarlett Spring MD, [facility] CPT-4: 97106 08/28/2015 ([id number]) 05060 EST. P ATIENT, LEVEL IV Diagnosis: Essential (primary) hypertension[ICD10: I10] Diagnosis: Gastro-esophageal reflux disease without esophagitis[ICD10: K21.9] Diagnosis: Other dorsalgia[ICD10: M54.89] Scarlett Spring MD, [facility] CPT-4: 12442 07/09/2015 ([id number]) OFFICE [facility] - LEVEL 4 Diagnosis: ESSENTIAL HYPERTENSION[ICD9: 401.9] Diagnosis: Osteoporosis[ICD9: 733.00] Diagnosis: Back pain[ICD9: 724.5] Diagnosis: Insomnia[ICD9: 780.52] Diagnosis: ESOPHAGEAL REFLUX[ICD9: 530.81] Scarlett Spring MD, [facility] CPT-4: 68007 03/06/2015 Plan of Care Planned Activity Notes [...] home. 2016 [facility] [phone] [facility] ([facility] min) Moderate 02/02/2017 Patient Education: [...] not improve. 2016 [phone] [facility] ([facility] Complex 11/26/2016 Patient Education: [...] symptoms. 10/07/2016 Appointment: Scarlett Spring [facility] [phone] [facility] [place] (15 min) Moderate 10/07/2016 Patient Education: Patient Medication Summary Completed 10/07/2016 Patient Education: Obesity Completed 10/07/2016 Patient Education: Hypertension Completed 10/07/2016 Care Plan: VASCULAR STUDY Pending 10/04/2016 Care Plan: X-RAY EXAM OF KNEE 3 [facility] : 95858-2 Pending 10/04/2016 Visit Plan: Hypertension - well controll ed - continue with current medications, continue with no added salt diet. Pt has been encouraged to exercise daily.The pt has been advised to call the office if there are any acute concerns about change in blood pressure readings at home.Rash - continue current treatment.Depression - RX for paroxetine 09/16/2016 Appointment: Scarlett Spring WPtel: [facility] [place] (15 min) Moderate 09/16/2016 Patient [...] improve. 09/07/2016 Appointment: [facility] [phone] [facility] [place] (10 min) Simple 09/07/2016 Patient [...] 04/08/2016 Appointment: Scarlett Spring WPtel: [phone] [facility] (15 min) Moderate 04/08/2016 Patient Education: [...] 03/05/2016 Appointment: Scarlett Spring WPtel: [phone] [facility] (15 min) Moderate 03/05/2016 Patient Education: [...] 12/04/2015 Appointment: Scarlett Spring WPtel: [phone] [facility] [place] (15 min) Moderate 12/04/2015 Patient Education: [...] spray. 11/18/2015 Appointment: Scarlett Spring WPtel: [phone] [facility] (15 min) Moderate 11/18/2015 Patient Education: Patient Medication Summary Completed 11/18/2015 Patient Education: Obesity Completed 11/18/2015 Patient Education: Hypertension Completed 11/18/2015 Appointment: Scarlett Spring WPtel: [phone] [facility] (15 min) Moderate 11/07/2015 Visit Plan: Hypertension [...] Plan: MSSA of groin and under yoon [id number] bactrim and call if rash does not [...] report. 2015 App[facility]ment[facility] [phone] [facility] ([facility] min) Moderate 08/28/2015 Patient Education: [...] improving. 07/09/2015 App[facility]ment[facility] [phone] [facility] ([facility] min) Moderate 07/09/2015 Patient Education: [...] not improving. 03/06/2015 Appointment: Scarlett Spring WPtel: [address] [place], [place] [address] [place] (S) New Patient 03/06/2015 Patient Education: [...]
--- OUTSIDE RECORDS SUMMARY | 2020-01-23 14:24 | XMS REPORT | CCD ---
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 Name Role Phone PP Unavailable CCM Unavailable Summary Purpose Interface Exchange Insurance Providers Payer name Policy type / Coverage type Covered constitution party ID Effective Begin Date Effective End Date WPS Medicare Part B Medicare Part B [id number] Unknown Unknown [employer] Medicare Part B [id number] Unknown Unkno wn Family history Mother Diagnosis Age At Onset Hypertension Unknown Heart Attack Unknown Daughter Diagnosis Age At Onset Heart Attack Unknown Hyperlipidemia Unknown Hypertension Unknown Social History Social History Element Codes Description Effective Dates Number of children Unknown 2 daughter lives in [place], son - does not have contact 09/16/[address]: 1026958 Quit over 10 years ago 1990 - previously smoked 2ppd x 25 years. 11/18/2015 Marital status Unknown W idowed in 201003/06/2015 Employment Unknown Retir ed was a [employer] 03/06/2015 Allergies, Adverse Reactions, Alerts Allergies, Adverse Reactions, Alerts data not found Past Medical History Illness Codes Condition Status Onset Date Resolved Date Essential (primary) hypertension ICD-9: 401.9 ICD-10: I10 [...] Condition Codes Effectiv e Dates Condition Status Essential (primary) hypertension ICD-9: 401.9 ICD-10: I10 [...] #3 3 00 mg-30 mg tablet RxNorm: 454559 1 Tablet(s) PO QID as needed 02/02/2017 03/03/2017 Ac tive metoprolol succinate ER 50 mg tablet,extended release 24 hr RxNorm: 927450 TAKE ONE TABLET BY MOUTH ONCE DAILY 12/23/2016 06/20/2017 Active Zithromax Z-Ted 250 mg tablet RxNorm: 125687 1 Tablet(s) PO UD 11/26/2016 No Stop Date Active trazodone 50 mg tablet RxNorm: 889546 TAKE ONE TABLET BY MOUTH ONCE DAILY 11/12/2016 03/11/2017 Ac tive Ambien 10 mg tablet RxNorm: 583227 Tablet(s) TAKE ONE TABLET BY MOUTH AT BE DTIME 10/22/2016 02/16/2017 Ac tive paroxetine 20 mg tablet RxNorm: 1489250 1 Tablet(s) PO daily TAKE ONE TABLET BY MOUTH DAILY 09/16/2016 06/12/2017 Active Protonix 40 mg table t,delayed release RxNorm: 191350 1 Tablet(s) PO daily 09/16/2016 03/14/2017 Ac tive sucralfate 1 gram ta blet RxNorm: 783051 1 Tablet(s) PO TID 09/16/2016 01/13/2017 Inactive meloxicam 7.5 mg tablet RxNorm: 836672 1 Tablet(s) PO daily 09/16/2016 11/14/2016 Inactive Ambien 10 mg tablet RxNorm: 969881 Tablet(s) TAKE ONE TABLET BY MOUTH AT BE DTIME 08/24/2016 10/21/2016 Inactive trazodone 50 mg tablet RxNorm: 358331 Tablet(s) TAKE ONE TABLET BY MOUTH DAILY 07/29/2016 11/11/2016 In active Ambien 10 mg tablet RxNorm: 362325 TAKE ONE TABLET BY MOUTH AT BEDTIME 06/23/2016 07/21/2016 In active Ambien 10 mg tablet RxNorm: 935544 Tablet(s) TAKE ONE TABLET BY MOUTH EVERY NIGHT AT BEDTIME 06/22/2016 06/23/2016 Inactive Ambien 10 mg tablet RxNorm: 877916 Tablet(s) TAKE ONE TABLET BY MOUTH EVERY NIGHT AT BEDTIME 04/03/2016 05/31/2016 Inactive Lasix 40 mg tablet RxNorm: 679413 1 Tablet(s) PO daily as needed for swell ing 04/03/2016 09/15/2016 In active potassium chloride E R 20 mEq tablet,extended release RxNorm: 482454 1 Tablet(s) PO daily for swelling take with lasix as needed 04/03/2016 09/15/2016 Inactive omeprazole 20 mg cap [place],delayed release RxNorm: 477901 TAKE ONE CAPSULE BY M OUTH EVERY NIGHT AT BEDTIME 03/31/2016 09/15/2016 Inactive paroxetine 20 mg tablet RxNorm: 9165037 TAKE ONE TABLET BY MOUTH DAILY 03/31/2016 09/15/2016 In active trazodone 50 mg tablet RxNorm: 852589 TAKE ONE TABLET BY MOUTH DAILY 03/20/2016 07/28/2016 In active terazosin 5 mg capsule RxNorm: 335723 TAKE ONE CAPSULE BY MOUTH DAILY 03/06/2016 10/06/2016 In active Ambien 10 mg tablet RxNorm: 953339 Tablet(s) TAKE ONE TABLET BY MOUTH EVERY NIGHT AT BEDTIME 01/17/2016 04/02/2016 Inactive loratadine 10 mg tablet RxNorm: 394262 1 Tablet(s) PO daily 01/15/2016 09/15/2016 Inactive mupirocin 2 % topica l ointment RxNorm: 816938 1 Application TOP TID 11/18/2015 12/01/2015 Inactive metoprolol succinate ER 50 mg tablet,extended release 24 hr RxNorm: 832422 1 Tablet(s) PO daily 11/18/2015 11/11/2016 Inactive loratadine 10 mg tablet RxNorm: 055077 1 Tablet(s) PO daily 11/18/2015 01/14/2016 Inactive Lasix 40 mg tablet RxNorm: 717904 1 Tablet(s) PO daily as needed for swell ing 10/30/2015 11/28/2015 In active potassium chloride E R 20 mEq tablet,extended release RxNorm: 551606 1 Tablet(s) PO daily for swelling take with lasix as needed 10/30/2015 11/28/2015 Inactive Tylenol-Codeine #3 3 00 mg-30 mg tablet RxNorm: 775454 1 Tablet(s) PO QID as needed 10/25/2015 02/01/2017 In active Ambien 10 mg tablet RxNorm: 606711 Tablet(s) TAKE ONE TABLET BY MOUTH EVERY NIGHT AT BEDTIME 10/18/2015 01/13/2016 Inactive Diflucan 150 mg tablet RxNorm: 284405 1 Tablet(s) PO daily 10/01/2015 12/03/2015 Inactive Lasix 20 mg tablet RxNorm: 075701 1 Tablet(s) PO PRN fror swelling 09/27/2015 10/29/2015 In active potassium chloride E R 10 mEq capsule,extended release RxNorm: 025044 1 Capsule(s) PO PRN for swelling take with lasix 09/27/2015 10/29/2015 Inactive Bactrim DS 800 mg-16 0 mg tablet RxNorm: 135861 1 Tablet(s) PO BID 09/02/2015 09/11/2015 Inactive Bactrim DS 800 mg-16 0 mg tablet RxNorm: 329311 1 Tablet(s) PO BID 09/02/2015 09/01/2015 Inactive nystatin 100,000 uni t/gram topical cream RxNorm: 591656 1 Gram(s) TOP TID 08/28/2015 09/26/2015 In active Diflucan 150 mg tablet RxNorm: 571483 1 Tablet(s) PO daily 08/28/2015 09/06/2015 Inactive betamethasone diprop ionate 0.05 % topical ointment RxNorm: 217605 1 Application TOP TID to affected area 08/02/2015 02/01/2017 Inactive nystatin 100,000 uni t/gram topical powder RxNorm: 461909 1 Gram(s) TOP QID 07/09/2015 08/01/2015 In active Ambien 10 mg tablet RxNorm: 579331 1 Tablet(s) PO QHS 06/19/2015 06/18/2015 Inactive Ambien 10 mg tablet RxNorm: 692092 TAKE ONE TABLET BY MOUTH EVERY NIGHT AT BEDTIME 06/19/2015 09/16/2015 Inactive Vitamin D2 50,000 un it capsule RxNorm: 728988 1 Capsule(s) PO QW 03/07/2015 03/06/2015 Inactive Vitamin D2 50,000 un it capsule RxNorm: 131912 1 Capsule(s) PO QW 03/07/2015 05/05/2015 Inactive terazosin 5 mg capsule RxNorm: 359966 1 Capsule(s) PO daily 03/06/2015 02/28/2016 Inactive [SAVINGS FOR NON-COVERED DRUGS -- BIN:00 3585, PCN: [id number], Group: XXXXX, ID# XXXXXXX, Questions: . THIS IS NOT INSURANCE.] trazodone 50 mg tablet RxNorm: 706412 1 Tablet(s) PO daily 03/06/2015 02/28/2016 Inactive paroxetine 20 mg tablet RxNorm: 2649730 1 Tablet(s) PO daily 03/06/2015 02/28/2016 Inactive Tylenol-Codeine #3 3 00 mg-30 mg tablet RxNorm: 152302 1 Tablet(s) PO QID as needed 03/06/2015 07/02/2015 In active amlodipine 10 mg tablet RxNorm: 865420 1 Tablet(s) PO daily 03/06/2015 11/17/2015 Inactive metoprolol succinate ER 25 mg tablet,extended release 24 hr RxNorm: 242232 1 Tablet(s) PO daily 03/06/2015 11/17/2015 Inactive omeprazole 20 mg cap mar[place],delayed release RxNorm: 248482 1 Capsule(s) PO QHS 03/06/2015 02/28/2016 In active omeprazole 20 mg cap mar[place],delayed release RxNorm: 629343 1 Capsule(s) PO QHS 01/31/2015 01/30/2015 In active omeprazole 20 mg cap mar[place],delayed release RxNorm: 919579 1 Capsule(s) PO QHS 01/31/2015 01/30/2015 In active omeprazole 20 mg cap mar[place],delayed release RxNorm: 699764 1 Capsule(s) PO QHS 01/31/2015 03/05/2015 In active Ambien 10 mg tablet RxNorm: 869643 1 Tablet(s) PO QHS 12/25/2014 04/21/2015 Inactive paroxetine 20 mg tablet RxNorm: 912618 1 Tablet(s) PO daily 12/25/2014 12/24/2014 Inactive Ambien 10 mg tablet RxNorm: 737612 1 Tablet(s) PO QHS 12/25/2014 12/24/2014 Inactive paroxetine 20 mg tablet RxNorm: 307328 1 Tablet(s) PO daily 12/25/2014 03/05/2015 Inactive terazosin 5 mg capsule RxNorm: 988631 1 Capsule(s) PO daily 11/23/2014 03/05/2015 Inactive [SAVINGS FOR NON-COVERED DRUGS -- BIN:00 3585, PCN: ASPROD1, Group: XXXXX, ID# XXXXXXX, Questions: . THIS IS NOT INSURANCE.] terazosin 5 mg capsule RxNorm: 875262 1 Capsule(s) PO daily 11/23/2014 11/22/2014 Inactive Vitamin D3 2,000 uni t tablet RxNorm: 686420 1 Tablet(s) PO daily No Start Date Active isosorbide mononitra te ER 30 mg tablet,extended release 24 hr RxNorm: 954942 1 Tablet(s) PO daily No Start Date Active aspirin 81 mg tablet ,delayed release RxNorm: 692672 1 Tablet(s) PO daily No Start Date Active Zetia 10 mg tablet RxNorm: 993521 1 Tablet(s) PO daily No Start Date Active Lipitor 80 mg tablet RxNorm: 504792 1/2 Tablet(s) PO daily No Start Date Active metoprolol succinate ER 25 mg tablet,extended release 24 hr RxNorm: 691459 1 Tablet(s) PO daily No Start Date 03/05/2015 Inactive betamethasone diprop ionate 0.05 % topical ointment RxNorm: 384862 1 Application TOP TID to affected area No Start Date 08/01/2015 Inactive trazodone 50 mg tablet RxNorm: 836640 1 Tablet(s) PO daily No Start Date 03/05/2015 Inactive potassium chloride E R 10 mEq capsule,extended release RxNorm: 396978 1 Capsule(s) PO PRN for swelling take with lasix No Start Date 09/26/2015 Inactive amlodipine 10 mg tablet RxNorm: 936915 1 Tablet(s) PO daily No Start Date 03/05/2015 Inactive Lasix 20 mg tablet RxNorm: 534539 1 Tablet(s) PO PRN fror swelling No Start Date 09/26/2015 Inactive Crestor 40 mg tablet RxNorm: 513323 1 Tablet(s) PO daily No Start Date 09/15/2016 Inactive Medication Administered No Medication Administered data Immunizations Vaccine Codes Date Status Influenza CVX: 141 04/08 completed Pneumococcal (Adult) CVX: 133 04/08/2016 completed Assessments Condition Codes Effectiv e Dates Paroxysmal atrial fibrillation ICD-1 0: I48.0 ICD-9: [...] Reason For Visit Effective Dates Notes hypertension 02/02/2017 sinus congestion 11/26/2016 hypertension 10/07/2016 hypertension 09/16/2016 knee pain 09/07/2016 dyspnea 04/08/2016 dyspnea 03/05/2016 dyspnea 12/04/2015 edema 11/18/2015 edema 09/30/2015 rash 09/09/2015 rash 08/28/2015 back pain 07/09/2015 back pain 03/06/2015 Results Observation Observation Code Item Item Code Result Date Comp Metabolic Ypk696 NA 137 mEq/L 09/30/2015 Comp Metabolic Qhc372 K 4.5 mEq/L 09/30/2015 Comp Metabolic Gnp100 CL 102 mEq/L 09/30/2015 Comp Metabolic Ozb371 CO2 26.0 mEq/L 09/30/2015 Comp Metabolic Bfy116 AN ION GAP 14 09/30/2015 Comp Metabolic Ezr660 GL UCOSE 89 mg/dL 09/30/2015 Comp Metabolic Gdz595 Cr eat 0.8 mg/dL 09/30/2015 Comp Metabolic Ftq382 eG FR 79 ml/min/1.73m2 09/29 Comp Metabolic Eyq224 BUN 14 mg/dL 09/30/2015 Comp Metabolic Dtu052 B/ C Ratio 18.2 Ratio 09/30/2015 Comp Metabolic Ztg263 CA LCIUM 8.9 mg/dL 09/30/2015 Comp Metabolic Cph600 AL K PHOS 65 U/L 09/30/2015 Comp Metabolic Aje219 T(SGOT) 26 U/L 09/30/2015 Comp Metabolic Ftx286 AL T(SGPT) 18 U/L 09/30/2015 Comp Metabolic Tcp309 BI LI T 0.6 mg/dL 09/30/2015 Comp Metabolic Wlx879 AL BUMIN 3.8 g/dL 09/30/2015 Comp Metabolic Etg186 TP RO 6.6 g/dL 09/30/2015 Comp Metabolic Kep889 GL OB 2.8 g/dL 09/30/2015 Comp Metabolic Ymy182 A/ G Ratio 1.4 Ratio 09/30/2015 Comp Metabolic Ibg090 Os mo 274 mOsmo 09/30/2015 Cbc With [...] 27.7 pg 09/30/2015 Cbc With Differential Ord2 [place]% 10.7 % 09/30/2015 Cbc With Differential Ord2 [...] 1.10 K/ul 09/30/2015 Cbc With Differential Ord2 [place] ABS# 0.6 K/ul 09/30/2015 Cbc With Differential Ord2 Eos ABS# 0.2 K/ul 09/30/2015 Cbc With Differential Ord2 Baso ABS# 0.0 K/ul 09/30/2015 Cbc With Differential Ord2 New Analyzer Notice Please note new ref ranges s tarting 08-07-2015 due to implemntation of new five part differential hematolgy analyzer. 09/30/2015 Tsh Ord6 hTSH II 1.05 uIU/mL 03/06/2015 Comp Metabolic Enq705 NA 137 mEq/L 03/06/2015 Comp Metabolic Ski463 K 4.3 mEq/L 03/06/2015 Comp Metabolic Dju633 CL 104 mEq/L 03/06/2015 Comp Metabolic Nqg277 CO2 28.0 mEq/L 03/06/2015 Comp Metabolic Wvo159 AN ION GAP 9 03/06/2015 Comp Metabolic Vng934 GL UCOSE 93 mg/dL 03/06/2015 Comp Metabolic Fqz004 Cr eat 0.8 mg/dL 03/06/2015 Comp Metabolic Nxc634 eG FR 81 ml/min/1.73m2 03/06 Comp Metabolic Rxj033 BUN 12 mg/dL 03/06/2015 Comp Metabolic Swa169 B/ C Ratio 16.0 Ratio 03/06/2015 Comp Metabolic Pss700 CA LCIUM 8.9 mg/dL 03/06/2015 Comp Metabolic Ifn202 AL K PHOS 56 U/L 03/06/2015 Comp Metabolic Szf437 T(SGOT) 22 U/L 03/06/2015 Comp Metabolic Wet209 AL T(SGPT) 15 U/L 03/06/2015 Comp Metabolic Twx685 BI LI T 0.4 mg/dL 03/06/2015 Comp Metabolic Cdb203 AL BUMIN 4.0 g/dL 03/06/2015 Comp Metabolic Nvp331 TP RO 6.5 g/dL 03/06/2015 Comp Metabolic Kai763 GL OB 2.5 g/dL 03/06/2015 Comp Metabolic Jlv068 A/ G Ratio 1.6 Ratio 03/06/2015 Comp Metabolic Aam497 Os mo 273 mOsmo 03/06/2015 Vitamin D 25 Oh Vld9496 VITAMIN D, 25 HYDROXY 28.14 ng/mL 03/06/2015 [...] System Result Effective Dates Constitutional recent illness 02/02/2017 Constitutional No chills [...] Date ADMIN INFLUENZA VIRU S VAC CPT-4: A1726Adecdda 04/08/2016 ADMIN PNEUMOCOCCAL V ACCINE SNOMED CT: 37056029 CPT-4: O4747Szajxnt 04/08/2016 PNEUMOCOCCAL VACC [address]: 45272600 CPT-4: 38918Xulsqpe 04/08/2016 FLU VACC PRSV FREE I NC ANTIG CPT-4: 65395Fenuswo 04/08/2016 Vital Signs Date Vital 02/02/2017 Blood Pressure 1: 140/90 Code: 8480-6 BMI: 41.2 Code: 68447-2 Heart Rate 1: 103 bpm Height: 5'7" SpO2: 94% Weight: 263 lbs 11/26/2016 Blood Pressure 1: 152/88 Code: 8480-6 BMI: 41.0 Code: 96954-5 Heart Rate 1: 71 bpm Height: 5'7" SpO2: 94% Temperature: 37.7 (C ) / 99.8 (F) Weight: 262 lbs 10/07/2016 Blood Pressure 1: 148/82 Code: 8480-6 BMI: 41.7 Code: 27168-7 Heart Rate 1: 58 bpm Height: 5'7" SpO2: 96% Weight: 266 lbs 09/16/2016 Blood Pressure 1: 122/70 Code: 8480-6 BMI: 42.0 Code: 33737-4 Heart Rate 1: 65 bpm Height: 5'7" SpO2: 96% Weight: 268 lbs 09/07/2016 Blood Pressure 1: 154/60 Code: 8480-6 BMI: 42.3 Code: 09916-2 Heart Rate 1: 101 bpm Height: 5'7" SpO2: 97% Weight: 270 lbs 04/08/2016 Blood Pressure 1: 128/70 Code: 8480-6 BMI: 41.4 Code: 38559-8 Heart Rate 1: 62 bpm Height: 5'7" SpO2: 95% Weight: 264 lbs 8 oz 03/05/2016 Blood Pressure 1: 144/78 Code: 8480-6 Blood Pressure 1: 139/72 Code: 8480-6 BMI: 41.9 Code: 67984-0 Heart Rate 1: 71 bpm Height: 5'7" SpO2: 93% Weight: 267 lbs 8 oz 12/04/2015 Blood Pressure 1: 132/70 Code: 8480-6 BMI: 41.3 Code: 97356-9 Heart Rate 1: 56 bpm Height: 5'7" SpO2: 96% Weight: 264 lbs 11/18/2015 Blood Pressure 1: 138/72 Code: 8480-6 BMI: 41.0 Code: 18238-3 Heart Rate 1: 85 bpm Height: 5'7" SpO2: 93% Weight: 262 lbs 09/30/2015 Blood Pressure 1: 128/76 Code: 8480-6 BMI: 41.2 Code: 59393-8 Heart Rate 1: 70 bpm Height: 5'7" SpO2: 93% Weight: 263 lbs 09/09/2015 Blood Pressure 1: 138/80 Code: 8480-6 BMI: 40.3 Code: 19000-3 Heart Rate 1: 84 bpm Height: 5'7" SpO2: 95% Weight: 257 lbs 08/28/2015 Blood Pressure 1: 122/72 Code: 8480-6 BMI: 39.6 Code: 52073-8 Heart Rate 1: 75 bpm Height: 5'7" SpO2: 96% Weight: 253 lbs 07/09/2015 Blood Pressure 1: 135/78 Code: 8480-6 Blood Pressure 1: 140/78 Code: 8480-6 BMI: 39.5 Code: 10281-8 Heart Rate 1: 62 bpm Height: 5'7" SpO2: 95% Weight: 252 lbs 03/06/2015 Blood Pressure 1: 142/88 Code: 8480-6 BMI: 39.3 Code: 60021-7 Heart Rate 1: 65 bpm Height: 5'7" SpO2: 95% Weight: 251 lbs Functional Status No Functional Status data History of Present Illness Symptom Name Status Resu lt Effective Date Notes hypertension Quality int ermittent 02/02/2017 None hypertension [...] 09/16/2016 None low back pain Quality ac [place]onek 09/16/2016 None low back pain Onset and [...] Encounters Encounter Performer Loca tion Codes Date ([id number]) [id number] EST. P ATIENT, LEVEL IV Diagnosis: Paroxysmal atrial fibrillation[ICD10: I48.0] Diagnosis: Essential (primary) hypertension[ICD10: I10] Scarlett Spring MD, C CPT-4: 67184 02/02/2017 [id number] EST. PATIENT, LEVEL III Diagnosis: Acute laryngopharyngitis[ICD10: J06.0] Diagnosis: Cough[ICD10: R05] Diagnosis: Pleurodynia[ICD10: R07.81] Diagnosis: Other dorsalgia[ICD10: M54.89] Kassandra Spring MD, [facility] CPT-4: 18538 11/26/2016 ([id number]) 99372 EST. P ATIENT, LEVEL IV Diagnosis: Essential (primary) hypertension[ICD10: I10] Diagnosis: Pain in left knee[ICD10: M25.562] Diagnosis: Low back pain[ICD10: M54.5] Diagnosis: Major depressive disorder, recurrent, moderate[ICD10: F33.1] cSarlett Spring MD, [facility] CPT-4: 57010 10/07/2016 ([id number]) 36199 EST. P ATIENT, LEVEL IV Diagnosis: Essential (primary) hypertension[ICD10: I10] Diagnosis: Rash and other nonspecific skin eruption[ICD10: R21] Diagnosis: Major depressive disorder, recurrent, mild[ICD10: F33.0] Scarlett Spring MD, [facility] CPT-4: 22763 09/16/2016 68474 EST. PATIENT, LEVEL IV Diagnosis: Pain in left lower leg[ICD10: M79.662] Diagnosis: Pain in left knee[ICD10: M25.562] Kassandra Spring MD, [facility] CPT-4: 79785 09/07/2016 ([id number]) 04516 EST. P ATIENT, LEVEL IV Diagnosis: Encounter for immunization[ICD10: Z23] Diagnosis: Essential (primary) hypertension[ICD10: I10] Diagnosis: Mixed hyperlipidemia[ICD10: E78.2] Scarlett Spring MD, [facility] CPT- 4: 96332 04/08/2016 ([id number]) 71206 EST. P ATIENT, LEVEL III Diagnosis: Essential (primary) hypertension[ICD10: I10] Diagnosis: Shortness of breath[ICD10: R06.02] Scarlett Spring MD, [facility] CPT- 4: 97940 03/05/2016 ([id number]) 09746 EST. P ATIENT, LEVEL III Diagnosis: Chronic obstructive pulmonary disease, unspecified[ICD10: J44.9] Scarlett Spring MD, [facility] CPT-4: 40394 12/04/2015 ([id number]) 66614 EST. P ATIENT, LEVEL IV Diagnosis: Essential (primary) hypertension[ICD10: I10] Diagnosis: Allergic rhinitis due to pollen[ICD10: J30.1] Scarlett Spring MD, [facility] CPT-4: 67059 11/18/2015 ([id number]) 08495 EST. P ATIENT, LEVEL IV Diagnosis: Localized edema[ICD10: R60.0] Diagnosis: Dysuria[ICD10: R30.0] Diagnosis: Essential (primary) hypertension[ICD10: I10] Diagnosis: Nausea[ICD10: R11.0] Alis Spring MD, [facility] CPT-4: 82805 09/30/2015 ([id number]) 96121 EST. P ATIENT, LEVEL II Diagnosis: Methicillin susceptible Staphylococcus aureus infection as the cause of diseases classified elsewhere[ICD10: B95.61] Diagnosis: Methicillin susceptible Staphylococcus aureus infection, unspecified site[ICD10: A49.01] Alis Spring MD, [facility] CPT-4: 00768 09/09/2015 ([id number]) 28321 EST. P ATIENT, LEVEL III Diagnosis: Dermatophytosis, unspecified[ICD10: B35.9] Diagnosis: Rash and other nonspecific skin eruption[ICD10: R21] Scarlett Spring MD, [facility] CPT-4: 61135 08/28/2015 ([id number]) 85390 EST. P ATIENT, LEVEL IV Diagnosis: Essential (primary) hypertension[ICD10: I10] Diagnosis: Gastro-esophageal reflux disease without esophagitis[ICD10: K21.9] Diagnosis: Other dorsalgia[ICD10: M54.89] Scarlett Spring MD, [facility] CPT-4: 80563 07/09/2015 ([id number]) OFFICE VISI T, [facility] - LEVEL 4 Diagnosis: ESSENTIAL HYPERTENSION[ICD9: 401.9] Diagnosis: Osteoporosis[ICD9: 733.00] Diagnosis: Back pain[ICD9: 724.5] Diagnosis: Insomnia[ICD9: 780.52] Diagnosis: ESOPHAGEAL REFLUX[ICD9: 530.81] [facility] CPT-4: 08274 03/06/2015 Plan of Care Planned Activity Notes C odes Status Date Visit Plan: Atrial fibrillation - appt freddy corley today at 1pm - pt's ekg showed acute atrial fibrillation.Hypertension - well controlled - continue with current medications, continue with no added salt diet. Pt has been encouraged to exercise daily.The pt has been advised to call the office if there are any acute concerns about change in blood pressure readings at home. 2016 Patient Education: Patient Medication Summary Completed 02/02/2017 [...] not improve. 2016 Appointment: Kassandra Argueta WPtel: [address] [place], [place] [id number] (30 min) Complex 11/26/2016 Patient Education: Patient [...] symptoms. 10/07/2016 Appointment: Scarlett Spring [facility]Ptel[facility] [phone] [facility] [place] (15 min) Moderate 10/07/2016 Patient Education: Patient Medication Summary Completed 10/07/2016 Patient Education: Obesity Completed 10/07/2016 Patient Education: Hypertension Completed 10/07/2016 Care Plan: VASCULAR STUDY Pending 10/04/2016 Care Plan: X-RAY EXAM OF KNEE 3 [facility] : [address]-9 Pending 10/04/2016 Visit Plan: Hypertension - well [...] Appointment: Scarlett Spring WPtel: [facility] [place] [place] (15 min) Moderate 09/16/2016 Patient Education: [...] 09/07/2016 Appointment: [phone] [facility] [place] (10 min) Simple 09/07/2016 Patient [...] order 04/08/2016 Appointment: Scarlett Spring WPtel: [phone] [facility] (15 min) Moderate 04/08/2016 Patient Education: Patient [...] days. 03/05/2016 Appointment: Scarlett Spring WPtel: [phone] [facility] (15 min) Moderate 03/05/2016 Patient Education: Patient Medication Summary Completed 03/05/2016 Visit Plan: COPD - chronic problem for t his patient. We have reviewed chronic treatment strategy, symptom control, and plans for acute exacerbations. No changes today to the current treatment plan as the patient is stable, monitor for acute changes.anoro samples given to the patient 12/04/2015 Appointment: Scarlett Spring WPtel: [phone] [facility] [place] [place] (15 min) Moderate 12/04/2015 Patient Education: [...] spray. 11/18/2015 Appointment: Scarlett Spring WPtel: [phone] [facility] (15 min) Moderate 11/18/2015 Patient Education: Patient Medication Summary Completed 11/18/2015 Patient Education: Obesity Completed 11/18/2015 Patient Education: Hypertension Completed 11/18/2015 Appointment: Scarlett Spring WPtel: [facility] (15 min) Moderate 11/07/2015 Visit [...] Plan: MSSA of groin and under yoon [id number] bactrim and call if rash does not completely resolve 09/09/2015 Appointment: (15 min) Moderate 09/09/2015 Patient Education: Patient Medication Summary Completed 09/09/2015 Visit Plan: Rash - dermatophytosis - rec ommended oral diflucan, topical nystatin cream, rtc in 10 days to assure healing.check of culture - may need to consider treatment with antibiotic depending on the groin culture report. 2015 Appointment: cSarlett Spring WPtel: [phone] [facility] (15 min) Moderate 08/28/2015 Patient Education: Patient [...] Spring WPtel: [phone] [facility] (15 min) Moderate 07/09/2015 Patient Education: Patient [...] not improving. 03/06/2015 Appointment: Scarlett Spring WPtel: [address] [place], [place] [address] [place] (S) New Patient 03/06/2015 Patient Education: [...]
--- OUTSIDE RECORDS SUMMARY | 2020-01-23 14:26 | XMS REPORT | CCD ---
Author Author Jeannine Spring Organization Scarlett Spring MD, [facility] Address [address] [place] [address] Phone Care Team Providers Care Financial Management Consultant Name Role Phone PP Unavailable CCM Unavailable Summary Purpose Interface Exchange Insurance Providers Payer name Policy type / Coverage type Covered constitution party ID Effective Begin Date Effective End Date WPS Medicare Part B Medicare Part B [id number] Unknown [employer] [place] Medicare Part B [id number] Unkn own Family history Mother Diagnosis Age At Onset Hypertension Unknown Heart Attack Unknown Brother Diagnosis Age At Onset Heart disease Unknown Runs in the family Diagnosis Age At Onset Heart disease Unknown Daughter Diagnosis Age At Onset Heart Attack Unknown Hyperlipidemia Unknown Hypertension Unknown Social History Social History Element Codes Description Effective Dates Number of children Unknown 2 daughter lives in [place], son - does not have contact 09/16/[address]: 5086950 Quit over 10 years ago 1990 - previously smoked 2ppd x 25 years. 11/18/2015 Marital status Unknown W idowed in 201003/06/2015 Employment Unknown Retir ed was a [employer] 03/06/2015 Allergies, Adverse Reactions, Alerts Substance Reaction [...] ICD-10: J30.1 Active 11/17/2015 Unknown Localized edema ICD-9: 782.3 ICD-10: R60.0 Active 09/29/2015 Unknown Methicillin suscepti ble Staphylococcus [...] Condition Codes Effectiv e Dates Condition Status Dysuria ICD-9: 788.1 ICD-10: [...] 477.0 ICD-10: J30.1 11/17/2015 Active Localized edema ICD-9: 782.3 ICD-10: R60.0 09/29/2015 Active Methicillin suscepti ble Staphylococcus aureus [...] tus Fill Instructions doxycycline hyclate 100 mg tablet RxNorm: 7539026 1 Tablet(s) PO BID 11/21/2018 11/27/2018 Active can exchange for capsule if cheaper doxycycline hyclate 100 mg tablet RxNorm: 3861201 1 Tablet(s) PO BID 11/21/2018 11/20/2018 Inactive simethicone 125 mg c hewable tablet RxNorm: 565366 1 Tablet(s) PO qid pr n 10/25/2018 No Stop Date Active promethazine 25 mg t ablet RxNorm: 457673 1 Tablet(s) PO Q6 PRN 10/25/2018 No Stop Date Active paroxetine 40 mg tablet RxNorm: 5023360 1 Tablet(s) PO daily 10/13/2018 04/10/2019 Active valsartan 160 mg tablet RxNorm: 238901 1 Tablet(s) PO daily 10/13/2018 04/10/2019 Active Ambien 10 mg tablet RxNorm: 013078 TAKE ONE TABLET BY MOUTH AT BEDTIME N EEDED 09/23/2018 11/21/2018 Inactive terazosin 5 mg capsule RxNorm: 020557 TAKE ONE CAPSULE BY MOUTH DAILY 09/23/2018 02/19/2019 Ac tive trazodone 50 mg tablet RxNorm: 333119 TAKE ONE TABLET BY MOUTH DAILY 09/23/2018 03/21/2019 Ac tive losartan 50 mg tablet RxNorm: 871595 1 Tablet(s) PO daily 09/15/2018 10/12/2018 Inactive omeprazole 20 mg cap marina,delayed release RxNorm: 042773 TAKE ONE CAPSULE BY M OUTH EVERY NIGHT AT BEDTIME 09/12/2018 03/10/2019 Active Keflex 500 mg capsule RxNorm: 885265 1 Capsule(s) PO TID 08/18/2018 08/17/2018 Inactive Keflex 500 mg capsule RxNorm: 822568 1 Capsule(s) PO TID 08/18/2018 08/24/2018 Inactive take probiotic while on abx paroxetine 20 mg tablet RxNorm: 9993325 TAKE ONE TABLET BY MOUTH DAILY 08/12/2018 10/12/2018 In active losartan 25 mg tablet RxNorm: 503488 1 Tablet(s) PO daily 08/01/2018 09/14/2018 Inactive losartan 25 mg tablet RxNorm: 928494 1 Tablet(s) PO daily 08/01/2018 10/12/2018 Inactive trazodone 50 mg tablet RxNorm: 768960 TAKE ONE TABLET BY MOUTH DAILY 07/25/2018 09/22/2018 In active Ambien 10 mg tablet RxNorm: 423146 Tablet(s) TAKE ONE TABLET BY MOUTH AT [facility] 06/24/2018 09/23/2018 Inactive trazodone 50 mg tablet RxNorm: 549644 TAKE ONE TABLET BY MOUTH DAILY 04/25/2018 07/23/2018 In active Ambien 10 mg tablet RxNorm: 376817 Tablet(s) TAKE ONE TABLET BY MOUTH AT BE DTIME 03/23/2018 06/19/2018 Inactive terazosin 5 mg capsule RxNorm: 136939 TAKE ONE CAPSULE BY MOUTH DAILY 03/14/2018 09/09/2018 In active Ambien 10 mg tablet RxNorm: 372113 Tablet(s) TAKE ONE TABLET BY MOUTH AT BE DTIME 01/18/2018 09/14/2018 Inactive trazodone 50 mg tablet RxNorm: 017589 TAKE ONE TABLET BY MOUTH ONCE DAILY 01/10/2018 03/22/2018 In active trazodone 50 mg tablet RxNorm: 907242 Tablet(s) TAKE ONE TABLET BY MOUTH ONCE DAILY 01/10/2018 04/24/2018 Inactive Ambien 10 mg tablet RxNorm: 985896 Tablet(s) TAKE ONE TABLET BY MOUTH AT BE DTIME 10/22/2017 01/17/2018 Inactive trazodone 50 mg tablet RxNorm: 081336 TAKE ONE TABLET BY MOUTH ONCE DAILY 10/18/2017 01/09/2018 In active omeprazole 20 mg cap marina,delayed release RxNorm: 523863 TAKE ONE CAPSULE BY M OUTH ONCE DAILY AT BEDTIME 08/27/2017 09/11/2018 Inactive trazodone 50 mg tablet RxNorm: 807842 TAKE ONE TABLET BY MOUTH ONCE DAILY 08/18/2017 10/17/2017 In active Ambien 10 mg tablet RxNorm: 754962 Tablet(s) TAKE ONE TABLET BY MOUTH AT BE DTIME 08/18/2017 03/22/2018 Inactive paroxetine 20 mg tablet RxNorm: 3426962 TAKE ONE TABLET BY MOUTH ONCE DAILY 07/27/2017 08/11/2018 In active Ambien 10 mg tablet RxNorm: 174013 Tablet(s) TAKE ONE TABLET BY MOUTH AT BE DTIME 06/23/2017 03/22/2018 Inactive omeprazole 20 mg cap marina,delayed release RxNorm: 650324 TAKE ONE CAPSULE BY M OUTH ONCE DAILY AT BEDTIME 04/23/2017 08/20/2017 Inactive trazodone 50 mg tablet RxNorm: 680832 TAKE ONE TABLET BY MOUTH ONCE DAILY 04/13/2017 08/10/2017 In active terazosin 5 mg capsule RxNorm: 961153 Capsule(s) TAKE ONE CAPSULE BY MOUTH TATA LY 04/08/2017 03/03/2018 In active Ambien 10 mg tablet RxNorm: 920936 Tablet(s) TAKE ONE TABLET BY MOUTH AT BE DTIDE 02/17/2017 03/22/2018 Inactive Tylenol-Codeine #3 3 00 mg-30 mg tablet RxNorm: 285764 1 Tablet(s) PO QID as needed 02/02/2017 11/14/2018 In active metoprolol succinate ER 50 mg tablet,extended release 24 hr RxNorm: 123347 TAKE ONE TABLET BY MOUTH ONCE DAILY 12/23/2016 02/02/2017 Inactive Zithromax Z-Ted 250 mg tablet RxNorm: 447890 1 Tablet(s) PO UD 11/26/2016 02/16/2017 Inactive trazodone 50 mg tablet RxNorm: 322157 TAKE ONE TABLET BY MOUTH ONCE DAILY 11/12/2016 03/11/2017 In active Ambien 10 mg tablet RxNorm: 569245 Tablet(s) TAKE ONE TABLET BY MOUTH AT [facility] 10/22/2016 02/15/2017 Inactive paroxetine 20 mg tablet RxNorm: 3513606 1 Tablet(s) PO daily TAKE ONE TABLET BY MOUTH DAILY 09/16/2016 06/12/2017 Inactive meloxicam 7.5 mg tablet RxNorm: 361360 1 Tablet(s) PO daily 09/16/2016 11/14/2016 Inactive Protonix 40 mg table t,delayed release RxNorm: 250011 1 Tablet(s) PO daily 09/16/2016 08/22/2017 In active sucralfate 1 gram ta blet RxNorm: 915609 1 Tablet(s) PO TID 09/16/2016 08/22/2017 Inactive Ambien 10 mg tablet RxNorm: 353377 Tablet(s) TAKE ONE TABLET BY MOUTH AT BE DTIDE 08/24/2016 03/22/2018 Inactive trazodone 50 mg tablet RxNorm: 871511 Tablet(s) TAKE ONE TABLET BY MOUTH DAILY 07/29/2016 11/11/2016 In active Ambien 10 mg tablet RxNorm: 659915 TAKE ONE TABLET BY MOUTH AT BEDTIME 06/23/2016 03/22/2018 In active Ambien 10 mg tablet RxNorm: 586596 Tablet(s) TAKE ONE TABLET BY MOUTH EVERY NIGHT AT BEDTIME 06/22/2016 06/23/2016 Inactive Lasix 40 mg tablet RxNorm: 670664 1 Tablet(s) PO daily as needed for swell ing 04/03/2016 09/15/2016 In active potassium chloride E R 20 mEq tablet,extended release RxNorm: 910234 1 Tablet(s) PO daily for swelling take with lasix as needed 04/03/2016 09/15/2016 Inactive Ambien 10 mg tablet RxNorm: 673814 Tablet(s) TAKE ONE TABLET BY MOUTH EVERY NIGHT AT BEDTIME 04/03/2016 03/22/2018 Inactive omeprazole 20 mg cap marina,delayed release RxNorm: 214025 TAKE ONE CAPSULE BY M OUTH EVERY NIGHT AT BEDTIME 03/31/2016 09/15/2016 Inactive paroxetine 20 mg tablet RxNorm: 3450917 TAKE ONE TABLET BY MOUTH DAILY 03/31/2016 09/15/2016 In active trazodone 50 mg tablet RxNorm: 486892 TAKE ONE TABLET BY MOUTH DAILY 03/20/2016 07/28/2016 In active terazosin 5 mg capsule RxNorm: 822428 TAKE ONE CAPSULE BY MOUTH DAILY 03/06/2016 10/06/2016 In active Ambien 10 mg tablet RxNorm: 281710 Tablet(s) TAKE ONE TABLET BY MOUTH EVERY NIGHT AT BEDTIME 01/17/2016 04/02/2016 Inactive loratadine 10 mg tablet RxNorm: 592764 1 Tablet(s) PO daily 01/15/2016 09/15/2016 Inactive mupirocin 2 % topica l ointment RxNorm: 084047 1 Application TOP TID 11/18/2015 12/01/2015 Inactive metoprolol succinate ER 50 mg tablet,extended release 24 hr RxNorm: 375744 1 Tablet(s) PO daily 11/18/2015 11/11/2016 Inactive loratadine 10 mg tablet RxNorm: 287669 1 Tablet(s) PO daily 11/18/2015 01/14/2016 Inactive Lasix 40 mg tablet RxNorm: 749091 1 Tablet(s) PO daily as needed for swell ing 10/30/2015 11/28/2015 In active potassium chloride E R 20 mEq tablet,extended release RxNorm: 945095 1 Tablet(s) PO daily for swelling take with lasix as needed 10/30/2015 11/28/2015 Inactive Tylenol-Codeine #3 3 00 mg-30 mg tablet RxNorm: 513397 1 Tablet(s) PO QID as needed 10/25/2015 02/01/2017 In active Ambien 10 mg tablet RxNorm: 902664 Tablet(s) TAKE ONE TABLET BY MOUTH EVERY NIGHT AT BEDTIME 10/18/2015 03/22/2018 Inactive Diflucan 150 mg tablet RxNorm: 415738 1 Tablet(s) PO daily 10/01/2015 12/03/2015 Inactive Lasix 20 mg tablet RxNorm: 278760 1 Tablet(s) PO PRN fror swelling 09/27/2015 10/29/2015 In active potassium chloride E R 10 mEq capsule,extended release RxNorm: 905173 1 Capsule(s) PO PRN for swelling take with lasix 09/27/2015 10/29/2015 Inactive Bactrim DS 800 mg-16 0 mg tablet RxNorm: 099465 1 Tablet(s) PO BID 09/02/2015 09/11/2015 Inactive Bactrim DS 800 mg-16 0 mg tablet RxNorm: 305056 1 Tablet(s) PO BID 09/02/2015 09/01/2015 Inactive nystatin 100,000 uni t/gram topical cream RxNorm: 798195 1 Gram(s) TOP TID 08/28/2015 09/26/2015 In active Diflucan 150 mg tablet RxNorm: 687347 1 Tablet(s) PO daily 08/28/2015 09/06/2015 Inactive betamethasone diprop ionate 0.05 % topical ointment RxNorm: 892536 1 Application TOP TID to affected area 08/02/2015 02/01/2017 Inactive nystatin 100,000 uni t/gram topical powder RxNorm: 730712 1 Gram(s) TOP QID 07/09/2015 08/01/2015 In active Ambien 10 mg tablet RxNorm: 503629 1 Tablet(s) PO QHS 06/19/2015 06/18/2015 Inactive Ambien 10 mg tablet RxNorm: 432341 TAKE ONE TABLET BY MOUTH EVERY NIGHT AT BEDTIME 06/19/2015 09/16/2015 Inactive Vitamin D2 50,000 un it capsule RxNorm: 562219 1 Capsule(s) PO QW 03/07/2015 03/06/2015 Inactive Vitamin D2 50,000 un it capsule RxNorm: 166048 1 Capsule(s) PO QW 03/07/2015 05/05/2015 Inactive terazosin 5 mg capsule RxNorm: 739071 1 Capsule(s) PO daily 03/06/2015 02/28/2016 Inactive [SAVINGS FOR NON-COVERED DRUGS -- BIN:00 3585, PCN: ASPROD1, Group: XXXXX, ID# [id number], Questions: . THIS IS NOT INSURANCE.] trazodone 50 mg tablet RxNorm: 083922 1 Tablet(s) PO daily 03/06/2015 02/28/2016 Inactive paroxetine 20 mg tablet RxNorm: 5901450 1 Tablet(s) PO daily 03/06/2015 02/28/2016 Inactive Tylenol-Codeine #3 3 00 mg-30 mg tablet RxNorm: 702149 1 Tablet(s) PO QID as needed 03/06/2015 07/02/2015 In active amlodipine 10 mg tablet RxNorm: 650742 1 Tablet(s) PO daily 03/06/2015 11/17/2015 Inactive metoprolol succinate ER 25 mg tablet,extended release 24 hr RxNorm: 562385 1 Tablet(s) PO daily 03/06/2015 11/17/2015 Inactive omeprazole 20 mg cap marina,delayed release RxNorm: 324735 1 Capsule(s) PO QHS 03/06/2015 02/28/2016 In active omeprazole 20 mg cap marina,delayed release RxNorm: 260003 1 Capsule(s) PO QHS 01/31/2015 01/30/2015 In active omeprazole 20 mg cap marina,delayed release RxNorm: 116877 1 Capsule(s) PO QHS 01/31/2015 01/30/2015 In active omeprazole 20 mg cap marina,delayed release RxNorm: 005943 1 Capsule(s) PO QHS 01/31/2015 03/05/2015 In active Ambien 10 mg tablet RxNorm: 141983 1 Tablet(s) PO QHS 12/25/2014 04/21/2015 Inactive paroxetine 20 mg tablet RxNorm: 101845 1 Tablet(s) PO daily 12/25/2014 12/24/2014 Inactive Ambien 10 mg tablet RxNorm: 540578 1 Tablet(s) PO QHS 12/25/2014 12/24/2014 Inactive paroxetine 20 mg tablet RxNorm: 282722 1 Tablet(s) PO daily 12/25/2014 03/05/2015 Inactive terazosin 5 mg capsule RxNorm: 739514 1 Capsule(s) PO daily 11/23/2014 03/05/2015 Inactive [SAVINGS FOR NON-COVERED DRUGS -- BIN:00 3585, PCN: ASPROD1, Group: XXXXX, ID# [id number], Questions: . THIS IS NOT INSURANCE.] terazosin 5 mg capsule RxNorm: 561742 1 Capsule(s) PO daily 11/23/2014 11/22/2014 Inactive Lasix 20 mg tablet RxNorm: 779418 1 Tablet(s) PO daily No Start Date Active K-Dur 10 mEq tablet, extended release RxNorm: 900873 1 Tablet(s) PO daily No Start Date Active hydrochlorothiazide 25 mg tablet RxNorm: 693166 1 Tablet(s) PO daily No Start Date Active Vitamin D3 2,000 uni t tablet RxNorm: 079939 1 Tablet(s) PO daily No Start Date Active amiodarone 200 mg ta blet RxNorm: 465312 1 Tablet(s) PO BID No Start Date Active Zetia 10 mg tablet RxNorm: 322424 1 Tablet(s) PO daily No Start Date Active Lipitor 80 mg tablet RxNorm: 766993 1/2 Tablet(s) PO daily No Start Date Active Coumadin 4 mg tablet RxNorm: 753525 1 Tablet(s) PO daily No Start Date Active metoprolol succinate ER 25 mg tablet,extended release 24 hr RxNorm: 148369 1 Tablet(s) PO daily No Start Date 03/05/2015 Inactive Entresto 49 mg-51 mg tablet RxNorm: 2811536 1 Tablet(s) PO BID No Start Date 04/19/2018 Inactive sotalol 80 mg tablet RxNorm: 5290743 1 Tablet(s) PO BID No Start Date 04/19/2018 Inactive betamethasone diprop ionate 0.05 % topical ointment RxNorm: 844766 1 Application TOP TID to affected area No Start Date 08/01/2015 Inactive trazodone 50 mg tablet RxNorm: 930083 1 Tablet(s) PO daily No Start Date 03/05/2015 Inactive potassium chloride E R 10 mEq capsule,extended release RxNorm: 757390 1 Capsule(s) PO PRN for swelling take with lasix No Start Date 09/26/2015 Inactive Eliquis 5 mg tablet RxNorm: 7614859 1 Tablet(s) PO BID No Start Date 09/14/2018 Inactive amlodipine 10 mg tablet RxNorm: 808905 1 Tablet(s) PO daily No Start Date 03/05/2015 Inactive isosorbide mononitra te ER 30 mg tablet,extended release 24 hr RxNorm: 854705 1 Tablet(s) PO daily No Start Date 08/22/2017 Inactive aspirin 81 mg tablet ,delayed release RxNorm: 329719 1 Tablet(s) PO daily No Start Date 02/02/2017 Inactive Lasix 20 mg tablet RxNorm: 519412 1 Tablet(s) PO PRN fror swelling No Start Date 09/26/2015 Inactive lisinopril 5 mg tablet RxNorm: 751256 1 Tablet(s) PO daily No Start Date 07/31/2018 Inactive Crestor 40 mg tablet RxNorm: 925015 1 Tablet(s) PO daily No Start Date 09/15/2016 Inactive metoprolol succinate ER 100 mg tablet,extended release 24 hr RxNorm: 923043 1 Tablet(s) PO daily No Start Date 12/15/2017 Inactive Medication Administered No Medication Administered data Immunizations Vaccine Codes Date Status Influenza CVX: 141 04/20 completed Influenza CVX: 141 04/08 completed Pneumococcal (Adult) CVX: 133 04/08/2016 completed Assessments Condition Codes Effectiv e Dates Major depressive disorder, recurrent, moderate ICD-10: F33.1 ICD-9: 296.32 11/15/2018 Dysuria ICD-10: R30.0 ICD-9: 788.1 11/15/2018 Essential (primary) hypertension ICD -10: I10 [...] pollen ICD- 10: J30.1 ICD-9: 477.0 11/18/2015 Localized edema ICD-10: [...] Reason For Visit Effective Dates Notes hypertension 11/15/2018 diarrhea 10/25/2018 hypertension 10/13/2018 hypertension [...] sent to ref lab 11/16/2018 Culture Urine [id number] URI NE CULTURE SEE NOTES 08/22/2018 Culture Urine [id number] Con tinued Results 08/22/2018 Urine Culture Ucult Comp lete >100,000 col/ml aerobic grow th sent to ref lab 08/19/2018 Comp Metabolic Aad836 NA 140 mEq/L 08/01/2018 Comp Metabolic Fuv417 K 4.2 mEq/L 08/01/2018 Comp Metabolic Yud707 CL 102 mEq/L 08/01/2018 Comp Metabolic Rdb772 CO2 27.0 mEq/L 08/01/2018 Comp Metabolic Abj149 AN ION GAP 15 08/01/2018 Comp Metabolic Ilb855 GL UCOSE 107 mg/dL 08/01/2018 Comp Metabolic Rwx508 Cr eat 1.0 mg/dL 08/01/2018 Comp Metabolic Ezz294 eG FR 58 ml/min/1.73m2 08/01 Comp Metabolic Mcq775 BUN 10 mg/dL 08/01/2018 Comp Metabolic Tqb763 B/ C Ratio 10.0 Ratio 08/01/2018 Comp Metabolic Hwr185 CA LCIUM 8.9 mg/dL 08/01/2018 Comp Metabolic Bps651 AL K PHOS 68 U/L 08/01/2018 Comp Metabolic Yrp648 T(SGOT) 18 U/L 08/01/2018 Comp Metabolic Gpv583 AL T(SGPT) 14 U/L 08/01/2018 Comp Metabolic Qzw388 BI LI T 0.5 mg/dL 08/01/2018 Comp Metabolic Seb199 AL BUMIN 4.0 g/dL 08/01/2018 Comp Metabolic Vxa547 TP RO 6.3 g/dL 08/01/2018 Comp Metabolic Ijj347 GL OB 2.3 g/dL 08/01/2018 Comp Metabolic Miu803 A/ G Ratio 1.7 Ratio 08/01/2018 Comp Metabolic Yyt746 Os mo 279 mOsmo 08/01/2018 Tsh Ord6 [...] 27.3 pg 08/01/2018 Cbc With Differential Ord2 [place]% 9.8 % 08/01/2018 Cbc With Differential Ord2 [...] 0.79 K/ul 08/01/2018 Cbc With Differential Ord2 [place] ABS# 0.4 K/ul 08/01/2018 Cbc With Differential Ord2 Eos ABS# 0.1 K/ul 08/01/2018 Cbc With Differential Ord2 Baso ABS# 0.0 K/ul 08/01/2018 Lipid Ord30 CHOL 234 mg/dL 08/01/2018 Lipid Ord30 HDL 69.0 mg/dl 08/01/2018 Lipid Ord30 TRIG 57 mg/dL 08/01/2018 Lipid Ord30 LDL 154 mg/dL 08/01/2018 Lipid Ord30 C/HDL 3.4 Ratio 08/01/2018 Comp Metabolic Hps331 NA 137 mEq/L 09/30/2015 Comp Metabolic Zmt799 K 4.5 mEq/L 09/30/2015 Comp Metabolic Izc216 CL 102 mEq/L 09/30/2015 Comp Metabolic Brz280 CO2 26.0 mEq/L 09/30/2015 Comp Metabolic Hxx545 AN ION GAP 14 09/30/2015 Comp Metabolic Seh144 GL UCOSE 89 mg/dL 09/30/2015 Comp Metabolic Jzi511 Cr eat 0.8 mg/dL 09/30/2015 Comp Metabolic Ctb244 eG FR 79 ml/min/1.73m2 09/29 Comp Metabolic Owf806 BUN 14 mg/dL 09/30/2015 Comp Metabolic Zmf177 B/ C Ratio 18.2 Ratio 09/30/2015 Comp Metabolic Vpe220 CA LCIUM 8.9 mg/dL 09/30/2015 Comp Metabolic Brt891 AL K PHOS 65 U/L 09/30/2015 Comp Metabolic Xzj227 T(SGOT) 26 U/L 09/30/2015 Comp Metabolic Wmq972 AL T(SGPT) 18 U/L 09/30/2015 Comp Metabolic Yvq073 BI LI T 0.6 mg/dL 09/30/2015 Comp Metabolic Ygo036 AL BUMIN 3.8 g/dL 09/30/2015 Comp Metabolic Vkk324 TP RO 6.6 g/dL 09/30/2015 Comp Metabolic Pub317 GL OB 2.8 g/dL 09/30/2015 Comp Metabolic Rbl699 A/ G Ratio 1.4 Ratio 09/30/2015 Comp Metabolic Izg132 Os mo 274 mOsmo 09/30/2015 Cbc With [...] 27.7 pg 09/30/2015 Cbc With Differential Ord2 [place]% 10.7 % 09/30/2015 Cbc With Differential Ord2 [...] 1.10 K/ul 09/30/2015 Cbc With Differential Ord2 [place] ABS# 0.6 K/ul 09/30/2015 Cbc With Differential Ord2 Eos ABS# 0.2 K/ul 09/30/2015 Cbc With Differential Ord2 Baso ABS# 0.0 K/ul 09/30/2015 Cbc With Differential Ord2 New Analyzer Notice Please note new ref ranges s tarting 08-07-2015 due to implemntation of new five part differential hematolgy analyzer. 09/30/2015 Tsh Ord6 hTSH II 1.05 uIU/mL 03/06/2015 Comp Metabolic Pfy207 NA 137 mEq/L 03/06/2015 Comp Metabolic Hbc010 K 4.3 mEq/L 03/06/2015 Comp Metabolic Dci871 CL 104 mEq/L 03/06/2015 Comp Metabolic Poo228 CO2 28.0 mEq/L 03/06/2015 Comp Metabolic Zut304 AN ION GAP 9 03/06/2015 Comp Metabolic Fjg677 GL UCOSE 93 mg/dL 03/06/2015 Comp Metabolic Srx962 Cr eat 0.8 mg/dL 03/06/2015 Comp Metabolic Tnd019 eG FR 81 ml/min/1.73m2 03/06 Comp Metabolic Vlr944 BUN 12 mg/dL 03/06/2015 Comp Metabolic Fvl887 B/ C Ratio 16.0 Ratio 03/06/2015 Comp Metabolic Nrx470 CA LCIUM 8.9 mg/dL 03/06/2015 Comp Metabolic Avc024 AL K PHOS 56 U/L 03/06/2015 Comp Metabolic Vuf682 T(SGOT) 22 U/L 03/06/2015 Comp Metabolic Ngv902 AL T(SGPT) 15 U/L 03/06/2015 Comp Metabolic Sdj760 BI LI T 0.4 mg/dL 03/06/2015 Comp Metabolic Taw832 AL BUMIN 4.0 g/dL 03/06/2015 Comp Metabolic Qnq481 TP RO 6.5 g/dL 03/06/2015 Comp Metabolic Ifo726 GL OB 2.5 g/dL 03/06/2015 Comp Metabolic Bsu813 A/ G Ratio 1.6 Ratio 03/06/2015 Comp Metabolic Ggy930 Os mo 273 mOsmo 03/06/2015 Vitamin D 25 Oh Mua3686 VITAMIN D, 25 HYDROXY 28.14 ng/mL 03/06/2015 [...] Result Effective Dates Constitutional No recent illness 11/15/2018 Constitutional No [...] benign 10/25/2018 None Full Exam - General 1995 Musculoskeletal [...] Date URINALYSIS NONAUTO W /O SCOPE CPT-4: 95880 11/15/2018 URINALYSIS NONAUTO W /O SCOPE CPT-4: 36822 08/18/2018 ADMIN INFLUENZA VIRU S VAC CPT-4: G0008 04/20/2018 FLU VACC PRSV FREE I NC ANTIG Formatting Model/CDA Sections, Assigned to/Amparo Mims CPT-4: 14034Ujkqevk 04/20/2018 PPPS, SUBSEQ VISIT CPT- 4: G0439 02/09/2018 PPPS, SUBSEQ VISIT CPT- 4: G0439 02/03/2017 ADMIN INFLUENZA VIRU S VAC CPT-4: G0008 04/08/2016 ADMIN PNEUMOCOCCAL V ACCINE SNOMED CT: 41902386 CPT-4: G0009 04/08/2016 PNEUMOCOCCAL VACC [address]: 87365054 CPT-4: 90651 04/08/2016 FLU VACC PRSV FREE I NC ANTIG CPT-4: 63316 04/08/2016 Vital Signs Date Vital 11/15/2018 Blood Pressure 1: 144/76 Code: 8480-6 BMI: 42.3 Code: 41606-7 Heart Rate 1: 82 bpm Height: 5'7" SpO2: 96% Weight: 270 lbs 10/25/2018 Blood Pressure 1: 128/80 Code: 8480-6 BMI: 42.0 Code: 53352-2 Heart Rate 1: 93 bpm Height: 5'7" SpO2: 95% Weight: 268 lbs 10/13/2018 Blood Pressure 1: 162/76 Code: 8480-6 BMI: 42.0 Code: 80197-9 Heart Rate 1: 71 bpm Height: 5'7" SpO2: 96% Weight: 268 lbs 09/15/2018 Blood Pressure 1: 154/86 Code: 8480-6 BMI: 42.9 Code: 65378-4 Heart Rate 1: 88 bpm Height: 5'7" SpO2: 94% Weight: 274 lbs 08/15/2018 Blood Pressure 1: 140/90 Code: 8480-6 BMI: 40.7 Code: 90994-8 Heart Rate 1: 70 bpm Height: 5'7" SpO2: 93% Weight: 260 lbs 08/01/2018 Blood Pressure 1: 130/70 Code: 8480-6 BMI: 40.7 Code: 90501-7 Heart Rate 1: 80 bpm Height: 5'7" SpO2: 93% Weight: 260 lbs 04/20/2018 Blood Pressure 1: 128/68 Code: 8480-6 BMI: 41.7 Code: 57163-8 Heart Rate 1: 85 bpm Height: 5'7" SpO2: 94% Weight: 266 lbs 02/09/2018 Blood Pressure 1: 118/70 Code: 8480-6 BMI: 42.1 Code: 03816-2 Heart Rate 1: 58 bpm Height: 5'7" SpO2: 94% Weight: 269 lbs 12/16/2017 Blood Pressure 1: 132/86 Code: 8480-6 BMI: 42.7 Code: 23417-6 Heart Rate 1: 63 bpm Height: 5'7" SpO2: 94% Weight: 272 lbs 14 o z 08/23/2017 Blood Pressure 1: 150/82 Code: 8480-6 BMI: 42.0 Code: 12565-9 Heart Rate 1: 66 bpm Height: 5'7" SpO2: 96% Weight: 268 lbs 02/03/2017 Blood Pressure 1: 138/72 Code: 8480-6 BMI: 41.2 Code: 64173-2 Heart Rate 1: 96 bpm Height: 5'7" SpO2: 97% Weight: 263 lbs 02/02/2017 Blood Pressure 1: 140/90 Code: 8480-6 BMI: 41.2 Code: 75953-3 Heart Rate 1: 103 bpm Height: 5'7" SpO2: 94% Weight: 263 lbs 11/26/2016 Blood Pressure 1: 152/88 Code: 8480-6 BMI: 41.0 Code: 36065-1 Heart Rate 1: 71 bpm Height: 5'7" SpO2: 94% Temperature: 37.7 (C ) / 99.8 (F) Weight: 262 lbs 10/07/2016 Blood Pressure 1: 148/82 Code: 8480-6 BMI: 41.7 Code: 89398-7 Heart Rate 1: 58 bpm Height: 5'7" SpO2: 96% Weight: 266 lbs 09/16/2016 Blood Pressure 1: 122/70 Code: 8480-6 BMI: 42.0 Code: 94430-1 Heart Rate 1: 65 bpm Height: 5'7" SpO2: 96% Weight: 268 lbs 09/07/2016 Blood Pressure 1: 154/60 Code: 8480-6 BMI: 42.3 Code: 15571-0 Heart Rate 1: 101 bpm Height: 5'7" SpO2: 97% Weight: 270 lbs 04/08/2016 Blood Pressure 1: 128/70 Code: 8480-6 BMI: 41.4 Code: 41131-3 Heart Rate 1: 62 bpm Height: 5'7" SpO2: 95% Weight: 264 lbs 8 oz 03/05/2016 Blood Pressure 1: 144/78 Code: 8480-6 Blood Pressure 1: 139/72 Code: 8480-6 BMI: 41.9 Code: 96362-4 Heart Rate 1: 71 bpm Height: 5'7" SpO2: 93% Weight: 267 lbs 8 oz 12/04/2015 Blood Pressure 1: 132/70 Code: 8480-6 BMI: 41.3 Code: 75341-5 Heart Rate 1: 56 bpm Height: 5'7" SpO2: 96% Weight: 264 lbs 11/18/2015 Blood Pressure 1: 138/72 Code: 8480-6 BMI: 41.0 Code: 36227-0 Heart Rate 1: 85 bpm Height: 5'7" SpO2: 93% Weight: 262 lbs 09/30/2015 Blood Pressure 1: 128/76 Code: 8480-6 BMI: 41.2 Code: 39138-0 Heart Rate 1: 70 bpm Height: 5'7" SpO2: 93% Weight: 263 lbs 09/09/2015 Blood Pressure 1: 138/80 Code: 8480-6 BMI: 40.3 Code: 04980-6 Heart Rate 1: 84 bpm Height: 5'7" SpO2: 95% Weight: 257 lbs 08/28/2015 Blood Pressure 1: 122/72 Code: 8480-6 BMI: 39.6 Code: 22757-5 Heart Rate 1: 75 bpm Height: 5'7" SpO2: 96% Weight: 253 lbs 07/09/2015 Blood Pressure 1: 140/78 Code: 8480-6 Blood Pressure 1: 135/78 Code: 8480-6 BMI: 39.5 Code: 16535-4 Heart Rate 1: 62 bpm Height: 5'7" SpO2: 95% Weight: 252 lbs 03/06/2015 Blood Pressure 1: 142/88 Code: 8480-6 BMI: 39.3 Code: 40805-9 Heart Rate 1: 65 bpm Height: 5'7" SpO2: 95% Weight: 251 lbs Functional Status No Functional Status data History of Present Illness Symptom Name Status Resu lt Effective Date Notes Quality chronic 11/15/2018 None Quality primary hypert [...] rs ago 10/25/2018 None Location [facility] 10/25/2018 None Quality burning 10/25/2018 [...] 09/16/2016 None low back pain Quality ac [place] 09/16/2016 None low back pain Onset and [...] Encounters Encounter Performer Loca tion Codes Date ([id number]) [id number] EST. P ATIENT, LEVEL III Diagnosis: Dysuria[ICD10: R30.0] Diagnosis: Essential (primary) hypertension[ICD10: I10] Diagnosis: Major depressive disorder, recurrent, moderate[ICD10: F33.1] Alsi Spring MD, [facility] CPT-4: 05387 11/15/2018 ([id number]) 23304 EST. P ATIENT, LEVEL IV Diagnosis: Eructation[ICD10: R14.2] Diagnosis: Nausea[ICD10: R11.0] Diagnosis: Chest pain, unspecified[ICD10: R07.9] Diagnosis: Diarrhea, unspecified[ICD10: R19.7] Alis Spring MD, [facility] CPT-4: 63473 10/25/2018 [id number]) 50028 EST. P ATIENT, LEVEL IV Diagnosis: Essential (primary) hypertension[ICD10: I10] Diagnosis: Low back pain[ICD10: M54.5] Diagnosis: Major depressive disorder, recurrent, moderate[ICD10: F33.1] Alis Spring MD, [facility] CPT-4: 92331 10/13/2018 ([id number]) 64784 EST. P ATIENT, LEVEL IV Diagnosis: Essential (primary) hypertension[ICD10: I10] Diagnosis: Dysuria[ICD10: R30.0] Diagnosis: Low back pain[ICD10: M54.5] Alis Spring MD, [facility] CPT- 4: 34455 09/15/2018 ([id number]) 90850 EST. P ATIENT, LEVEL III Diagnosis: Essential (primary) hypertension[ICD10: I10] Diagnosis: Low back pain[ICD10: M54.5] Alis Spring MD, [facility] CPT- 4: 62937 08/15/2018 ([id number]) 19208 EST. P ATIENT, LEVEL III Diagnosis: Essential (primary) hypertension[ICD10: I10] Diagnosis: Cough[ICD10: R05] Diagnosis: Low back pain[ICD10: M54.5] Alis Spring MD, [facility] CPT- 4: 47550 08/01/2018 ([id number]) 41325 EST. P ATIENT, LEVEL IV Diagnosis: Encounter for immunization[ICD10: Z23] Diagnosis: Essential (primary) hypertension[ICD10: I10] Diagnosis: Chronic atrial fibrillation[ICD10: I48.2] Diagnosis: Major depressive disorder, recurrent, mild[ICD10: F33.0] Scarlett Spring MD, C CPT-4: 59306 04/20/2018 ([id number]) 47879 EST. P ATIENT, LEVEL IV Diagnosis: Essential (primary) hypertension[ICD10: I10] Diagnosis: Obstructive sleep apnea (adult) (pediatric)[ICD10: G47.33] Diagnosis: Chronic atrial fibrillation[ICD10: I48.2] Scarlett Spring MD, C CPT-4: 23039 12/16/2017 ([id number]) 87271 EST. P ATIENT, LEVEL IV Diagnosis: Essential (primary) hypertension[ICD10: I10] Diagnosis: Chronic atrial fibrillation[ICD10: I48.2] Scarlett Spring MD, C CPT-4: 05417 08/23/2017 ([id number]) 21297 EST. P ATIENT, LEVEL IV Diagnosis: Paroxysmal atrial fibrillation[ICD10: I48.0] Diagnosis: Essential (primary) hypertension[ICD10: I10] Scarlett Spring MD, [facility] CPT-4: 45669 02/02/2017 81847 EST. PATIENT, LEVEL III Diagnosis: Acute laryngopharyngitis[ICD10: J06.0] Diagnosis: Cough[ICD10: R05] Diagnosis: Pleurodynia[ICD10: R07.81] Diagnosis: Other dorsalgia[ICD10: M54.89] Kassandra Spring MD, [facility] CPT-4: 03560 11/26/2016 ([id number]) 06924 EST. P ATIENT, LEVEL IV Diagnosis: Essential (primary) hypertension[ICD10: I10] Diagnosis: Pain in left knee[ICD10: M25.562] Diagnosis: Low back pain[ICD10: M54.5] Diagnosis: Major depressive disorder, recurrent, moderate[ICD10: F33.1] Scarlett Spring MD, [facility] CPT-4: 30848 10/07/2016 ([id number]) 85159 EST. P ATIENT, LEVEL IV Diagnosis: Essential (primary) hypertension[ICD10: I10] Diagnosis: Rash and other nonspecific skin eruption[ICD10: R21] Diagnosis: Major depressive disorder, recurrent, mild[ICD10: F33.0] Scarlett Spring MD, C CPT-4: 68933 09/16/2016 57520 EST. PATIENT, LEVEL IV Diagnosis: Pain in left lower leg[ICD10: M79.662] Diagnosis: Pain in left knee[ICD10: M25.562] Kassandra Spring MD, [facility] CPT-4: 73577 09/07/2016 ([id number]) 46229 EST. P ATIENT, LEVEL IV Diagnosis: Encounter for immunization[ICD10: Z23] Diagnosis: Essential (primary) hypertension[ICD10: I10] Diagnosis: Mixed hyperlipidemia[ICD10: E78.2] Scarlett Spring MD, [facility] CPT- 4: 09230 04/08/2016 ([id number]) 39062 EST. P ATIENT, LEVEL III Diagnosis: Essential (primary) hypertension[ICD10: I10] Diagnosis: Shortness of breath[ICD10: R06.02] Scarlett Spring MD, [facility] CPT- 4: 94841 03/05/2016 ([id number]) 46853 EST. P ATIENT, LEVEL III Diagnosis: Chronic obstructive pulmonary disease, unspecified[ICD10: J44.9] Scarlett Spring MD, [facility] CPT-4: 89928 12/04/2015 ([id number]) 46021 EST. P ATIENT, LEVEL IV Diagnosis: Essential (primary) hypertension[ICD10: I10] Diagnosis: Allergic rhinitis due to pollen[ICD10: J30.1] Scarlett Spring MD, [facility] CPT-4: 02229 11/18/2015 ([id number]) 84385 EST. P ATIENT, LEVEL IV Diagnosis: Localized edema[ICD10: R60.0] Diagnosis: Dysuria[ICD10: R30.0] Diagnosis: Essential (primary) hypertension[ICD10: I10] Diagnosis: Nausea[ICD10: R11.0] Alis Spring MD, [facility] CPT-4: 45737 09/30/2015 ([id number]) 21446 EST. P ATIENT, LEVEL II Diagnosis: Methicillin susceptible Staphylococcus aureus infection as the cause of diseases classified elsewhere[ICD10: B95.61] Diagnosis: Methicillin susceptible Staphylococcus aureus infection, unspecified site[ICD10: A49.01] Alis Spring MD, [facility] CPT-4: 12393 09/09/2015 ([id number]) 59295 EST. P ATIENT, LEVEL III Diagnosis: Dermatophytosis, unspecified[ICD10: B35.9] Diagnosis: Rash and other nonspecific skin eruption[ICD10: R21] Scarlett Spring MD [facility] CPT-4: 75340 08/28/2015 ([id number]) 08722 EST. P ATIENT, LEVEL IV Diagnosis: Essential (primary) hypertension[ICD10: I10] Diagnosis: Gastro-esophageal reflux disease without esophagitis[ICD10: K21.9] Diagnosis: Other dorsalgia[ICD10: M54.89] Scarlett Spring MD, [facility] CPT-4: 88564 07/09/2015 ([id number]) OFFICE VISI T, [facility] - LEVEL 4 Diagnosis: ESSENTIAL HYPERTENSION[ICD9: 401.9] Diagnosis: Osteoporosis[ICD9: 733.00] Diagnosis: Back pain[ICD9: 724.5] Diagnosis: Insomnia[ICD9: 780.52] Diagnosis: ESOPHAGEAL REFLUX[ICD9: 530.81] [facility] CPT-4: 88049 03/06/2015 Plan of Care Planned Activity Notes [...] indicated 11/15/2018 Appointment: Alis Muhammad WPtel: [phone] [phone] (15 min) Moderate 11/15/2018 Patient Education: [...] ER 10/25/2018 [facility]ment[phone] ([facility] min) Moderate 10/25/2018 Patient Education: Patient [...] treatment 10/13/2018 Appointment: Alis Muhammad WPtel: [phone] [phone] (15 min) Moderate 10/13/2018 Patient Education: [...] 09/15/2018 Appointment: [facility] Muhammad [facility]el[phone] (30 min) Complex 09/15/2018 Patient Education: Patient [...] not improve 08/15/2018 Appointment: Alis Muhammad WPtel: [facility]4 [phone] (30 min) Complex 08/15/2018 Patient Education: Patient Medication Summary Completed 08/15/2018 Patient Education: Back Pain Completed 08/15/2018 Visit Plan: HTN-onofre induced cough-s top lisinopril -start losartan -monitor blood pressure and follow up in 2 weeks Low back pain-xray lumbar spine and refer for PT 08/01/2018 Appointment: Alis Muhammad WPtel: [phone] [phone] (15 min) Moderate 08/01/2018 Patient Education: Patient Medication Summary Completed 08/01/2018 Patient Education: Back Pain Completed 08/01/2018 Care Plan: X-RAY EXAM L-S SPINE 08/28 VWS LOINC : 19632-7 Pending 08/01/2018 Visit Plan: Hypertension - well [...] shot today. 04/20/2018 Appointment: Scarlett Spring [facility]el[facility] [phone] [facility] (15 min) Moderate 04/20/2018 Patient Education: [...] care surrogate. 02/09/2018 Appointment: Kassandra Argueta WPtel: [facility] [facility] - Annual Wellness Visit 02/09/2018 [...] every night. 12/16/2017 Appointment: Scarlett Spring WPtel: [phone] [facility] (15 min) Moderate 12/16/2017 Patient Education: [...] uncontrolled. 08/23/2017 Appointment: Scarlett Spring WPtel[facility] [phone] [facility] (15 min) Moderate 08/23/2017 Patient Education: [facility] [facility] - Annual Wellness Visit 02/03/2017 [...] at home. 02/02/2017 Appointment: Scarlett Spring WPtel: [facility]5 [facility] (15 min) Moderate 02/02/2017 Patient Education: [...] not improve. 11/26/2016 Appointment: Kassandra Argueta WPtel: [facility]4 [facility] (30 min) Complex 11/26/2016 Patient Education: [...] pain symptoms. 10/07/2016 Appointment: Scarlett Spring WPtel: [facility]8 [facility] [place] (15 min) Moderate 10/07/2016 Patient Education: Patient Medication Summary Completed 10/07/2016 Patient Education: Obesity Completed 10/07/2016 Patient Education: Hypertension Completed 10/07/2016 Care Plan: VASCULAR STUDY Pending 10/04/2016 Care Plan: X-RAY EXAM OF KNEE 3 [facility] : 99387-6 Pending 10/04/2016 Visit Plan: Hypertension - well [...] paroxetine 09/16/2016 Appointment: Scarlett Spring WPtel[facility] [phone] [facility] [place] (15 min) Moderate 09/16/2016 Patient [...] improve. 09/07/2016 Appointment: Kassandra Argueta WPtel: [phone] [facility] Spring WPtel: [phone] [facility] (15 min) Moderate 04/08/2016 Patient Education: Patient [...] Appointment: Scarlett Spring WPtel: [phone] [facility] (15 min) Moderate 03/05/2016 Patient Education: Patient Medication Summary Completed 03/05/2016 Visit Plan: COPD - chronic problem for this patient. We have reviewed chronic treatment strategy, symptom control, and plans for acute exacerbations. No changes today to the current treatment plan as the patient is stable, monitor for acute changes. anoro samples given to the patient 12/04/2015 Appointment: Scarlett Spring WPtel: [phone] [facility] (15 min) Moderate 12/04/2015 Patient Education: Patient [...] spray. 11/18/2015 Appointment: Scarlett Spring WPtel: [phone] [facility] (15 min) Moderate 11/18/2015 Patient Education: Patient Medication Summary Completed 11/18/2015 Patient Education: Obesity Completed 11/18/2015 Patient Education: Hypertension Completed 11/18/2015 Appointment: Scarlett Spring WPtel: [phone] [facility] (15 min) Moderate 11/07/2015 Visit Plan: [...] Visit Plan: MSSA of groin and under ikoobmv-oteekgidz-ctyuhq bactrim and call if rash does not [...] report. 08/28/2015 Appointment: Scarlett Spring WPtel: [phone] [facility] (15 min) Moderate 08/28/2015 Patient Education: [...] 07/09/2015 Appointment: Scarlett Spring WPtel: [phone] [facility] (15 min) Moderate 07/09/2015 Patient Education: [...] not improving. 03/06/2015 Appointment: Scarlett Spring WPtel: [facility] [facility] [place] ([place] New Patient 03/06/2015 Patient [...] will find out if anyone comes to [facility] check UA start probiotic daily . Hypertension [...] on the groin culture report. STOP LISINOPRIL -STA RT LOSARATAN 25MG DAILY [...]
--- OUTSIDE RECORDS SUMMARY | 2020-01-23 14:28 | XMS REPORT | CCD ---
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 Name Role Phone PP Unavailable CCM Unavailable Summary Purpose Interface Exchange Insurance Providers Payer name Policy type / Coverage type Covered alliance party ID Effective Begin Date Effective End Date WPS Medicare Part B Medicare Part B [id number] Unknown [place] [place] [employer] Medicare Part B [id number] Unkn own Family history Mother Diagnosis Age At Onset Hypertension Unknown Heart Attack Unknown Brother Diagnosis Age At Onset Heart disease Unknown Runs in the family Diagnosis Age At Onset Heart disease Unknown Daughter Diagnosis Age At Onset Heart Attack Unknown Hyperlipidemia Unknown Hypertension Unknown Social History Social History Element Codes Description Effective Dates Number of children Unknown 2 daughter lives in [place], son - does not have contact 09/16/[address]: 5816177 Quit over 10 years ago 1990 - previously smoked 2ppd x 25 years. 11/18/2015 Marital status Unknown W idowed in 201003/06/2015 Employment Unknown Retir ed was a [employer] 03/06/2015 Allergies, Adverse Reactions, Alerts Substance Reaction [...] Date Stop Date Sta tus Fill Instructions simethicone 125 mg c hewable tablet RxNorm: 482622 1 Tablet(s) PO qid pr n 10/25/2018 No Stop Date Active promethazine 25 mg t ablet RxNorm: 038867 1 Tablet(s) PO Q6 PRN 10/25/2018 No Stop Date Active paroxetine 40 mg tablet RxNorm: 3853527 1 Tablet(s) PO daily 10/13/2018 04/10/2019 Active valsartan 160 mg tablet RxNorm: 457210 1 Tablet(s) PO daily 10/13/2018 04/10/2019 Active Ambien 10 mg tablet RxNorm: 988840 TAKE ONE TABLET BY MOUTH AT BEDTIME N EEDED 09/23/2018 11/21/2018 Ac tive terazosin 5 mg capsule RxNorm: 896638 TAKE ONE CAPSULE BY MOUTH DAILY 09/23/2018 02/19/2019 Ac tive trazodone 50 mg tablet RxNorm: 638233 TAKE ONE TABLET BY MOUTH DAILY 09/23/2018 03/21/2019 Ac tive losartan 50 mg tablet RxNorm: 938017 1 Tablet(s) PO daily 09/15/2018 10/12/2018 Inactive omeprazole 20 mg cap mar[place],delayed release RxNorm: 238603 TAKE ONE CAPSULE BY M OUTH EVERY NIGHT AT BEDTIME 09/12/2018 03/10/2019 Active Keflex 500 mg capsule RxNorm: 411794 1 Capsule(s) PO TID 08/18/2018 08/17/2018 Inactive Keflex 500 mg capsule RxNorm: 030234 1 Capsule(s) PO TID 08/18/2018 08/24/2018 Inactive take probiotic while on abx paroxetine 20 mg tablet RxNorm: 3337432 TAKE ONE TABLET BY MOUTH DAILY 08/12/2018 10/12/2018 In active losartan 25 mg tablet RxNorm: 890796 1 Tablet(s) PO daily 08/01/2018 09/14/2018 Inactive losartan 25 mg tablet RxNorm: 643909 1 Tablet(s) PO daily 08/01/2018 10/12/2018 Inactive trazodone 50 mg tablet RxNorm: 054679 TAKE ONE TABLET BY MOUTH DAILY 07/25/2018 09/22/2018 In active Ambien 10 mg tablet RxNorm: 933707 Tablet(s) TAKE ONE TABLET BY MOUTH AT BE DTIME 06/24/2018 09/23/2018 Inactive trazodone 50 mg tablet RxNorm: 026982 TAKE ONE TABLET BY MOUTH DAILY 04/25/2018 07/23/2018 In active Ambien 10 mg tablet RxNorm: 052135 Tablet(s) TAKE ONE TABLET BY MOUTH AT BE DTIME 03/23/2018 06/19/2018 Inactive terazosin 5 mg capsule RxNorm: 484367 TAKE ONE CAPSULE BY MOUTH DAILY 03/14/2018 09/09/2018 In active Ambien 10 mg tablet RxNorm: 263395 Tablet(s) TAKE ONE TABLET BY MOUTH AT BE DTIME 01/18/2018 09/14/2018 Inactive trazodone 50 mg tablet RxNorm: 534217 TAKE ONE TABLET BY MOUTH ONCE DAILY 01/10/2018 03/22/2018 In active trazodone 50 mg tablet RxNorm: 997963 Tablet(s) TAKE ONE TABLET BY MOUTH ONCE DAILY 01/10/2018 04/24/2018 Inactive Ambien 10 mg tablet RxNorm: 438643 Tablet(s) TAKE ONE TABLET BY MOUTH AT BE DTIME 10/22/2017 01/17/2018 Inactive trazodone 50 mg tablet RxNorm: 558798 TAKE ONE TABLET BY MOUTH ONCE DAILY 10/18/2017 01/09/2018 In active omeprazole 20 mg cap marina,delayed release RxNorm: 321183 TAKE ONE CAPSULE BY M OUTH ONCE DAILY AT BEDTIME 08/27/2017 09/11/2018 Inactive trazodone 50 mg tablet RxNorm: 656280 TAKE ONE TABLET BY MOUTH ONCE DAILY 08/18/2017 10/17/2017 In active Ambien 10 mg tablet RxNorm: 194805 Tablet(s) TAKE ONE TABLET BY MOUTH AT BE DTIME 08/18/2017 03/22/2018 Inactive paroxetine 20 mg tablet RxNorm: 1828874 TAKE ONE TABLET BY MOUTH ONCE DAILY 07/27/2017 08/11/2018 In active Ambien 10 mg tablet RxNorm: 580088 Tablet(s) TAKE ONE TABLET BY MOUTH AT BE DTIME 06/23/2017 03/22/2018 Inactive omeprazole 20 mg cap marina,delayed release RxNorm: 110733 TAKE ONE CAPSULE BY M OUTH ONCE DAILY AT BEDTIME 04/23/2017 08/20/2017 Inactive trazodone 50 mg tablet RxNorm: 077977 TAKE ONE TABLET BY MOUTH ONCE DAILY 04/13/2017 08/10/2017 In active terazosin 5 mg capsule RxNorm: 551868 Capsule(s) TAKE ONE CAPSULE BY MOUTH TATA 04/08/2017 03/03/2018 In active Ambien 10 mg tablet RxNorm: 475905 Tablet(s) TAKE ONE TABLET BY MOUTH AT BE DTIME 02/17/2017 03/22/2018 Inactive Tylenol-Codeine #3 3 00 mg-30 mg tablet RxNorm: 356920 1 Tablet(s) PO QID as needed 02/02/2017 11/14/2018 In active metoprolol succinate ER 50 mg tablet,extended release 24 hr RxNorm: 506325 TAKE ONE TABLET BY MOUTH ONCE DAILY 12/23/2016 02/02/2017 Inactive Zithromax Z-Ted 250 mg tablet RxNorm: 630906 1 Tablet(s) PO UD 11/26/2016 02/16/2017 Inactive trazodone 50 mg tablet RxNorm: 112029 TAKE ONE TABLET BY MOUTH ONCE DAILY 11/12/2016 03/11/2017 In active Ambien 10 mg tablet RxNorm: 976557 Tablet(s) TAKE ONE TABLET BY MOUTH AT BE [facility] 10/22/2016 02/15/2017 Inactive paroxetine 20 mg tablet RxNorm: 6586245 1 Tablet(s) PO daily TAKE ONE TABLET BY MOUTH DAILY 09/16/2016 06/12/2017 Inactive meloxicam 7.5 mg tablet RxNorm: 064807 1 Tablet(s) PO daily 09/16/2016 11/14/2016 Inactive Protonix 40 mg table t,delayed release RxNorm: 043108 1 Tablet(s) PO daily 09/16/2016 08/22/2017 In active sucralfate 1 gram ta blet RxNorm: 645324 1 Tablet(s) PO TID 09/16/2016 08/22/2017 Inactive Ambien 10 mg tablet RxNorm: 093325 Tablet(s) TAKE ONE TABLET BY MOUTH AT [facility] 08/24/2016 03/22/2018 Inactive trazodone 50 mg tablet RxNorm: 189963 Tablet(s) TAKE ONE TABLET BY MOUTH DAILY 07/29/2016 11/11/2016 In active Ambien 10 mg tablet RxNorm: 277247 TAKE ONE TABLET BY MOUTH AT BEDTIME 06/23/2016 03/22/2018 In active Ambien 10 mg tablet RxNorm: 189162 Tablet(s) TAKE ONE TABLET BY MOUTH EVERY NIGHT AT BEDTIME 06/22/2016 06/23/2016 Inactive Lasix 40 mg tablet RxNorm: 581195 1 Tablet(s) PO daily as needed for swell ing 04/03/2016 09/15/2016 In active potassium chloride E R 20 mEq tablet,extended release RxNorm: 783474 1 Tablet(s) PO daily for swelling take with lasix as needed 04/03/2016 09/15/2016 Inactive Ambien 10 mg tablet RxNorm: 868109 Tablet(s) TAKE ONE TABLET BY MOUTH EVERY NIGHT AT BEDTIME 04/03/2016 03/22/2018 Inactive omeprazole 20 mg cap mar[place],delayed release RxNorm: 495235 TAKE ONE CAPSULE BY M OUTH EVERY NIGHT AT BEDTIME 03/31/2016 09/15/2016 Inactive paroxetine 20 mg tablet RxNorm: 2033478 TAKE ONE TABLET BY MOUTH DAILY 03/31/2016 09/15/2016 In active trazodone 50 mg tablet RxNorm: 567233 TAKE ONE TABLET BY MOUTH DAILY 03/20/2016 07/28/2016 In active terazosin 5 mg capsule RxNorm: 997222 TAKE ONE CAPSULE BY MOUTH DAILY 03/06/2016 10/06/2016 In active Ambien 10 mg tablet RxNorm: 827844 Tablet(s) TAKE ONE TABLET BY MOUTH EVERY NIGHT AT BEDTIME 01/17/2016 04/02/2016 Inactive loratadine 10 mg tablet RxNorm: 695557 1 Tablet(s) PO daily 01/15/2016 09/15/2016 Inactive mupirocin 2 % topica l ointment RxNorm: 236910 1 Application TOP TID 11/18/2015 12/01/2015 Inactive metoprolol succinate ER 50 mg tablet,extended release 24 hr RxNorm: 827990 1 Tablet(s) PO daily 11/18/2015 11/11/2016 Inactive loratadine 10 mg tablet RxNorm: 159033 1 Tablet(s) PO daily 11/18/2015 01/14/2016 Inactive Lasix 40 mg tablet RxNorm: 329965 1 Tablet(s) PO daily as needed for swell ing 10/30/2015 11/28/2015 In active potassium chloride E R 20 mEq tablet,extended release RxNorm: 147987 1 Tablet(s) PO daily for swelling take with lasix as needed 10/30/2015 11/28/2015 Inactive Tylenol-Codeine #3 3 00 mg-30 mg tablet RxNorm: 664311 1 Tablet(s) PO QID as needed 10/25/2015 02/01/2017 In active Ambien 10 mg tablet RxNorm: 034554 Tablet(s) TAKE ONE TABLET BY MOUTH EVERY NIGHT AT BEDTIME 10/18/2015 03/22/2018 Inactive Diflucan 150 mg tablet RxNorm: 993756 1 Tablet(s) PO daily 10/01/2015 12/03/2015 Inactive Lasix 20 mg tablet RxNorm: 348858 1 Tablet(s) PO PRN fror swelling 09/27/2015 10/29/2015 In active potassium chloride E R 10 mEq capsule,extended release RxNorm: 624448 1 Capsule(s) PO PRN for swelling take with lasix 09/27/2015 10/29/2015 Inactive Bactrim DS 800 mg-16 0 mg tablet RxNorm: 098071 1 Tablet(s) PO BID 09/02/2015 09/11/2015 Inactive Bactrim DS 800 mg-16 0 mg tablet RxNorm: 005550 1 Tablet(s) PO BID 09/02/2015 09/01/2015 Inactive nystatin 100,000 uni t/gram topical cream RxNorm: 987502 1 Gram(s) TOP TID 08/28/2015 09/26/2015 In active Diflucan 150 mg tablet RxNorm: 816868 1 Tablet(s) PO daily 08/28/2015 09/06/2015 Inactive betamethasone diprop ionate 0.05 % topical ointment RxNorm: 750714 1 Application TOP TID to affected area 08/02/2015 02/01/2017 Inactive nystatin 100,000 uni t/gram topical powder RxNorm: 416606 1 Gram(s) TOP QID 07/09/2015 08/01/2015 In active Ambien 10 mg tablet RxNorm: 024461 1 Tablet(s) PO QHS 06/19/2015 06/18/2015 Inactive Ambien 10 mg tablet RxNorm: 021149 TAKE ONE TABLET BY MOUTH EVERY NIGHT AT BEDTIME 06/19/2015 09/16/2015 Inactive Vitamin D2 50,000 un it capsule RxNorm: 253264 1 Capsule(s) PO QW 03/07/2015 03/06/2015 Inactive Vitamin D2 50,000 un it capsule RxNorm: 033409 1 Capsule(s) PO QW 03/07/2015 05/05/2015 Inactive terazosin 5 mg capsule RxNorm: 642259 1 Capsule(s) PO daily 03/06/2015 02/28/2016 Inactive [SAVINGS FOR NON-COVERED DRUGS -- BIN:00 3585, N: [id number], Group: XXXXX, ID# [id number], Questions: . THIS IS NOT INSURANCE.] trazodone 50 mg tablet RxNorm: 701257 1 Tablet(s) PO daily 03/06/2015 02/28/2016 Inactive paroxetine 20 mg tablet RxNorm: 3552385 1 Tablet(s) PO daily 03/06/2015 02/28/2016 Inactive Tylenol-Codeine #3 3 00 mg-30 mg tablet RxNorm: 433522 1 Tablet(s) PO QID as needed 03/06/2015 07/02/2015 In active amlodipine 10 mg tablet RxNorm: 635320 1 Tablet(s) PO daily 03/06/2015 11/17/2015 Inactive metoprolol succinate ER 25 mg tablet,extended release 24 hr RxNorm: 971354 1 Tablet(s) PO daily 03/06/2015 11/17/2015 Inactive omeprazole 20 mg cap marina,delayed release RxNorm: 017530 1 Capsule(s) PO QHS 03/06/2015 02/28/2016 In active omeprazole 20 mg cap marina,delayed release RxNorm: 599175 1 Capsule(s) PO QHS 01/31/2015 01/30/2015 In active omeprazole 20 mg cap marina,delayed release RxNorm: 517855 1 Capsule(s) PO QHS 01/31/2015 01/30/2015 In active omeprazole 20 mg cap marina,delayed release RxNorm: 405407 1 Capsule(s) PO QHS 01/31/2015 03/05/2015 In active Ambien 10 mg tablet RxNorm: 400077 1 Tablet(s) PO QHS 12/25/2014 04/21/2015 Inactive paroxetine 20 mg tablet RxNorm: 510570 1 Tablet(s) PO daily 12/25/2014 12/24/2014 Inactive Ambien 10 mg tablet RxNorm: 234425 1 Tablet(s) PO QHS 12/25/2014 12/24/2014 Inactive paroxetine 20 mg tablet RxNorm: 910084 1 Tablet(s) PO daily 12/25/2014 03/05/2015 Inactive terazosin 5 mg capsule RxNorm: 288497 1 Capsule(s) PO daily 11/23/2014 03/05/2015 Inactive [SAVINGS FOR NON-COVERED DRUGS -- BIN:00 3585, PCN: ASPROD1, Group: XXXXX, ID# [id number], Questions: . THIS IS NOT INSURANCE.] terazosin 5 mg capsule RxNorm: 224918 1 Capsule(s) PO daily 11/23/2014 11/22/2014 Inactive Lasix 20 mg tablet RxNorm: 130580 1 Tablet(s) PO daily No Start Date Active K-Dur 10 mEq tablet, extended release RxNorm: 325254 1 Tablet(s) PO daily No Start Date Active hydrochlorothiazide 25 mg tablet RxNorm: 589137 1 Tablet(s) PO daily No Start Date Active Vitamin D3 2,000 uni t tablet RxNorm: 269559 1 Tablet(s) PO daily No Start Date Active amiodarone 200 mg ta blet RxNorm: 338513 1 Tablet(s) PO BID No Start Date Active Zetia 10 mg tablet RxNorm: 212142 1 Tablet(s) PO daily No Start Date Active Lipitor 80 mg tablet RxNorm: 418533 1/2 Tablet(s) PO daily No Start Date Active Coumadin 4 mg tablet RxNorm: 757023 1 Tablet(s) PO daily No Start Date Active metoprolol succinate ER 25 mg tablet,extended release 24 hr RxNorm: 081786 1 Tablet(s) PO daily No Start Date 03/05/2015 Inactive Entresto 49 mg-51 mg tablet RxNorm: 8822415 1 Tablet(s) PO BID No Start Date 04/19/2018 Inactive sotalol 80 mg tablet RxNorm: 6334390 1 Tablet(s) PO BID No Start Date 04/19/2018 Inactive betamethasone diprop ionate 0.05 % topical ointment RxNorm: 548714 1 Application TOP TID to affected area No Start Date 08/01/2015 Inactive trazodone 50 mg tablet RxNorm: 066099 1 Tablet(s) PO daily No Start Date 03/05/2015 Inactive potassium chloride E R 10 mEq capsule,extended release RxNorm: 124168 1 Capsule(s) PO PRN for swelling take with lasix No Start Date 09/26/2015 Inactive Eliquis 5 mg tablet RxNorm: 0429582 1 Tablet(s) PO BID No Start Date 09/14/2018 Inactive amlodipine 10 mg tablet RxNorm: 631333 1 Tablet(s) PO daily No Start Date 03/05/2015 Inactive isosorbide mononitra te ER 30 mg tablet,extended release 24 hr RxNorm: 412980 1 Tablet(s) PO daily No Start Date 08/22/2017 Inactive aspirin 81 mg tablet ,delayed release RxNorm: 513542 1 Tablet(s) PO daily No Start Date 02/02/2017 Inactive Lasix 20 mg tablet RxNorm: 107812 1 Tablet(s) PO PRN fror swelling No Start Date 09/26/2015 Inactive lisinopril 5 mg tablet RxNorm: 960997 1 Tablet(s) PO daily No Start Date 07/31/2018 Inactive Crestor 40 mg tablet RxNorm: 565422 1 Tablet(s) PO daily No Start Date 09/15/2016 Inactive metoprolol succinate ER 100 mg tablet,extended release 24 hr RxNorm: 178075 1 Tablet(s) PO daily No Start Date [...] Item Item Code Result Date Culture Urine [id number] URI NE CULTURE SEE NOTES 08/22/2018 Culture Urine [id number] Con tinued Results 08/22/2018 Urine Culture Ucult Comp lete >100,000 col/ml aerobic grow th sent to ref lab 08/19/2018 Comp Metabolic Wev083 NA 140 mEq/L 08/01/2018 Comp Metabolic Bhd772 K 4.2 mEq/L 08/01/2018 Comp Metabolic Hcj807 CL 102 mEq/L 08/01/2018 Comp Metabolic Qhp518 CO2 27.0 mEq/L 08/01/2018 Comp Metabolic Zaw272 AN ION GAP 15 08/01/2018 Comp Metabolic Zqw675 GL UCOSE 107 mg/dL 08/01/2018 Comp Metabolic Daj796 Cr eat 1.0 mg/dL 08/01/2018 Comp Metabolic Axa464 eG FR 58 ml/min/1.73m2 08/01 Comp Metabolic Yrk899 BUN 10 mg/dL 08/01/2018 Comp Metabolic Voi472 B/ C Ratio 10.0 Ratio 08/01/2018 Comp Metabolic Xpe090 CA LCIUM 8.9 mg/dL 08/01/2018 Comp Metabolic Iql760 AL K PHOS 68 U/L 08/01/2018 Comp Metabolic Yob991 T(SGOT) 18 U/L 08/01/2018 Comp Metabolic Bom995 AL T(SGPT) 14 U/L 08/01/2018 Comp Metabolic Zwy442 BI LI T 0.5 mg/dL 08/01/2018 Comp Metabolic Npg687 AL BUMIN 4.0 g/dL 08/01/2018 Comp Metabolic Xxg945 TP RO 6.3 g/dL 08/01/2018 Comp Metabolic Duo290 GL OB 2.3 g/dL 08/01/2018 Comp Metabolic Zoo055 A/ G Ratio 1.7 Ratio 08/01/2018 Comp Metabolic Bim658 Os mo 279 mOsmo 08/01/2018 Tsh Ord6 [...] 27.3 pg 08/01/2018 Cbc With Differential Ord2 [place]% 9.8 % 08/01/2018 Cbc With Differential Ord2 [...] 0.79 K/ul 08/01/2018 Cbc With Differential Ord2 [place] ABS# 0.4 K/ul 08/01/2018 Cbc With Differential Ord2 Eos ABS# 0.1 K/ul 08/01/2018 Cbc With Differential Ord2 Baso ABS# 0.0 K/ul 08/01/2018 Lipid Ord30 CHOL 234 mg/dL 08/01/2018 Lipid Ord30 HDL 69.0 mg/dl 08/01/2018 Lipid Ord30 TRIG 57 mg/dL 08/01/2018 Lipid Ord30 LDL 154 mg/dL 08/01/2018 Lipid Ord30 C/HDL 3.4 Ratio 08/01/2018 Comp Metabolic Cwq375 NA 137 mEq/L 09/30/2015 Comp Metabolic Wnv077 K 4.5 mEq/L 09/30/2015 Comp Metabolic Ocn200 CL 102 mEq/L 09/30/2015 Comp Metabolic Pxs577 CO2 26.0 mEq/L 09/30/2015 Comp Metabolic Ulr703 AN ION GAP 14 09/30/2015 Comp Metabolic Ndz427 GL UCOSE 89 mg/dL 09/30/2015 Comp Metabolic Xoj207 Cr eat 0.8 mg/dL 09/30/2015 Comp Metabolic Rws784 eG FR 79 ml/min/1.73m2 09/29 Comp Metabolic Dfz252 BUN 14 mg/dL 09/30/2015 Comp Metabolic Qcr882 B/ C Ratio 18.2 Ratio 09/30/2015 Comp Metabolic Grk780 CA LCIUM 8.9 mg/dL 09/30/2015 Comp Metabolic Tkk614 AL K PHOS 65 U/L 09/30/2015 Comp Metabolic Vsc707 T(SGOT) 26 U/L 09/30/2015 Comp Metabolic Rfq811 AL T(SGPT) 18 U/L 09/30/2015 Comp Metabolic Lmv327 BI LI T 0.6 mg/dL 09/30/2015 Comp Metabolic Uad004 AL BUMIN 3.8 g/dL 09/30/2015 Comp Metabolic Ngg532 TP RO 6.6 g/dL 09/30/2015 Comp Metabolic Qyv766 GL OB 2.8 g/dL 09/30/2015 Comp Metabolic Ofp838 A/ G Ratio 1.4 Ratio 09/30/2015 Comp Metabolic Xys030 Os mo 274 mOsmo 09/30/2015 Cbc With [...] 27.7 pg 09/30/2015 Cbc With Differential Ord2 [place]% 10.7 % 09/30/2015 Cbc With Differential Ord2 [...] 1.10 K/ul 09/30/2015 Cbc With Differential Ord2 [place] ABS# 0.6 K/ul 09/30/2015 Cbc With Differential Ord2 Eos ABS# 0.2 K/ul 09/30/2015 Cbc With Differential Ord2 Baso ABS# 0.0 K/ul 09/30/2015 Cbc With Differential Ord2 New Analyzer Notice Please note new ref ranges s tarting 08-07-2015 due to implemntation of new five part differential hematolgy analyzer. 09/30/2015 Tsh Ord6 hTSH II 1.05 uIU/mL 03/06/2015 Comp Metabolic Ttz724 NA 137 mEq/L 03/06/2015 Comp Metabolic Ykd527 K 4.3 mEq/L 03/06/2015 Comp Metabolic Qur782 CL 104 mEq/L 03/06/2015 Comp Metabolic Xnp616 CO2 28.0 mEq/L 03/06/2015 Comp Metabolic Cjf027 AN ION GAP 9 03/06/2015 Comp Metabolic Eyx359 GL UCOSE 93 mg/dL 03/06/2015 Comp Metabolic Hpk175 Cr eat 0.8 mg/dL 03/06/2015 Comp Metabolic Tps240 eG FR 81 ml/min/1.73m2 03/06 Comp Metabolic Fuu365 BUN 12 mg/dL 03/06/2015 Comp Metabolic Mdx254 B/ C Ratio 16.0 Ratio 03/06/2015 Comp Metabolic Xbm777 CA LCIUM 8.9 mg/dL 03/06/2015 Comp Metabolic Yew807 AL K PHOS 56 U/L 03/06/2015 Comp Metabolic Khg963 T(SGOT) 22 U/L 03/06/2015 Comp Metabolic Pwx723 AL T(SGPT) 15 U/L 03/06/2015 Comp Metabolic Efo887 BI LI T 0.4 mg/dL 03/06/2015 Comp Metabolic Cnq915 AL BUMIN 4.0 g/dL 03/06/2015 Comp Metabolic Gkk670 TP RO 6.5 g/dL 03/06/2015 Comp Metabolic Tcu405 GL OB 2.5 g/dL 03/06/2015 Comp Metabolic Soo426 A/ G Ratio 1.6 Ratio 03/06/2015 Comp Metabolic Jsc714 Os mo 273 mOsmo 03/06/2015 Vitamin D 25 Oh Hkl5968 VITAMIN D, 25 HYDROXY 28.14 ng/mL 03/06/2015 [...] Respiratory dyspnea on exertion 11/18/2015 Respiratory dyspnea 0411/2015 Respiratory pedal edema 11/18/2015 Gastrointestinal No abdominal [...] 1995 Ears/Nose/Throat oral cavity/pharynx/larynx Overall: no masses 09/15/2018 [...] posture 08/15/2018 None Full Exam - General 1995 [...] clear 02/02/2017 None Full Exam - General 1995 Ears/Nose/Throat [...] Date URINALYSIS NONAUTO W /O SCOPE CPT-4: 40544 11/15/2018 URINALYSIS NONAUTO W /O SCOPE CPT-4: 42589 08/18/2018 ADMIN INFLUENZA VIRU S VAC CPT-4: G0008 04/20/2018 FLU VACC PRSV FREE I NC ANTIG Formatting Model/CDA Sections, Assigned to/Amparo Mims CPT-4: 68319Urqgqlx 04/20/2018 PPPS, SUBSEQ VISIT CPT- 4: G0439 02/09/2018 PPPS, SUBSEQ VISIT CPT- 4: G0439 02/03/2017 ADMIN INFLUENZA VIRU S VAC CPT-4: G0008 04/08/2016 ADMIN PNEUMOCOCCAL V ACCINE SNOMED CT: 03777693 CPT-4: G0009 04/08/2016 PNEUMOCOCCAL VACC [address]: 71167978 CPT-4: 97610 04/08/2016 FLU VACC PRSV FREE I NC ANTIG CPT-4: 66845 04/08/2016 Vital Signs Date Vital 11/15/2018 Blood Pressure 1: 144/76 Code: 8480-6 BMI: 42.3 Code: 16679-9 Heart Rate 1: 82 bpm Height: 5'7" SpO2: 96% Weight: 270 lbs 10/25/2018 Blood Pressure 1: 128/80 Code: 8480-6 BMI: 42.0 Code: 29225-7 Heart Rate 1: 93 bpm Height: 5'7" SpO2: 95% Weight: 268 lbs 10/13/2018 Blood Pressure 1: 162/76 Code: 8480-6 BMI: 42.0 Code: 59126-2 Heart Rate 1: 71 bpm Height: 5'7" SpO2: 96% Weight: 268 lbs 09/15/2018 Blood Pressure 1: 154/86 Code: 8480-6 BMI: 42.9 Code: 72469-7 Heart Rate 1: 88 bpm Height: 5'7" SpO2: 94% Weight: 274 lbs 08/15/2018 Blood Pressure 1: 140/90 Code: 8480-6 BMI: 40.7 Code: 78402-3 Heart Rate 1: 70 bpm Height: 5'7" SpO2: 93% Weight: 260 lbs 08/01/2018 Blood Pressure 1: 130/70 Code: 8480-6 BMI: 40.7 Code: 75686-6 Heart Rate 1: 80 bpm Height: 5'7" SpO2: 93% Weight: 260 lbs 04/20/2018 Blood Pressure 1: 128/68 Code: 8480-6 BMI: 41.7 Code: 59637-9 Heart Rate 1: 85 bpm Height: 5'7" SpO2: 94% Weight: 266 lbs 02/09/2018 Blood Pressure 1: 118/70 Code: 8480-6 BMI: 42.1 Code: 74592-4 Heart Rate 1: 58 bpm Height: 5'7" SpO2: 94% Weight: 269 lbs 12/16/2017 Blood Pressure 1: 132/86 Code: 8480-6 BMI: 42.7 Code: 97989-1 Heart Rate 1: 63 bpm Height: 5'7" SpO2: 94% Weight: 272 lbs 14 o z 08/23/2017 Blood Pressure 1: 150/82 Code: 8480-6 BMI: 42.0 Code: 73763-5 Heart Rate 1: 66 bpm Height: 5'7" SpO2: 96% Weight: 268 lbs 02/03/2017 Blood Pressure 1: 138/72 Code: 8480-6 BMI: 41.2 Code: 98187-1 Heart Rate 1: 96 bpm Height: 5'7" SpO2: 97% Weight: 263 lbs 02/02/2017 Blood Pressure 1: 140/90 Code: 8480-6 BMI: 41.2 Code: 90210-8 Heart Rate 1: 103 bpm Height: 5'7" SpO2: 94% Weight: 263 lbs 11/26/2016 Blood Pressure 1: 152/88 Code: 8480-6 BMI: 41.0 Code: 14801-5 Heart Rate 1: 71 bpm Height: 5'7" SpO2: 94% Temperature: 37.7 (C ) / 99.8 (F) Weight: 262 lbs 10/07/2016 Blood Pressure 1: 148/82 Code: 8480-6 BMI: 41.7 Code: 45033-5 Heart Rate 1: 58 bpm Height: 5'7" SpO2: 96% Weight: 266 lbs 09/16/2016 Blood Pressure 1: 122/70 Code: 8480-6 BMI: 42.0 Code: 96253-8 Heart Rate 1: 65 bpm Height: 5'7" SpO2: 96% Weight: 268 lbs 09/07/2016 Blood Pressure 1: 154/60 Code: 8480-6 BMI: 42.3 Code: 44002-0 Heart Rate 1: 101 bpm Height: 5'7" SpO2: 97% Weight: 270 lbs 04/08/2016 Blood Pressure 1: 128/70 Code: 8480-6 BMI: 41.4 Code: 59828-7 Heart Rate 1: 62 bpm Height: 5'7" SpO2: 95% Weight: 264 lbs 8 oz 03/05/2016 Blood Pressure 1: 144/78 Code: 8480-6 Blood Pressure 1: 139/72 Code: 8480-6 BMI: 41.9 Code: 80837-6 Heart Rate 1: 71 bpm Height: 5'7" SpO2: 93% Weight: 267 lbs 8 oz 12/04/2015 Blood Pressure 1: 132/70 Code: 8480-6 BMI: 41.3 Code: 00872-5 Heart Rate 1: 56 bpm Height: 5'7" SpO2: 96% Weight: 264 lbs 11/18/2015 Blood Pressure 1: 138/72 Code: 8480-6 BMI: 41.0 Code: 29782-8 Heart Rate 1: 85 bpm Height: 5'7" SpO2: 93% Weight: 262 lbs 09/30/2015 Blood Pressure 1: 128/76 Code: 8480-6 BMI: 41.2 Code: 94750-8 Heart Rate 1: 70 bpm Height: 5'7" SpO2: 93% Weight: 263 lbs 09/09/2015 Blood Pressure 1: 138/80 Code: 8480-6 BMI: 40.3 Code: 92806-6 Heart Rate 1: 84 bpm Height: 5'7" SpO2: 95% Weight: 257 lbs 08/28/2015 Blood Pressure 1: 122/72 Code: 8480-6 BMI: 39.6 Code: 75330-1 Heart Rate 1: 75 bpm Height: 5'7" SpO2: 96% Weight: 253 lbs 07/09/2015 Blood Pressure 1: 140/78 Code: 8480-6 Blood Pressure 1: 135/78 Code: 8480-6 BMI: 39.5 Code: 14579-5 Heart Rate 1: 62 bpm Height: 5'7" SpO2: 95% Weight: 252 lbs 03/06/2015 Blood Pressure 1: 142/88 Code: 8480-6 BMI: 39.3 Code: 32778-2 Heart Rate 1: 65 bpm Height: 5'7" [...] 09/16/2016 None low back pain Quality ac [place] 09/16/2016 None low back pain Onset and [...] Encounters Encounter Performer Loca tion Codes Date ([id number]) [id number] EST. P ATIENT, LEVEL III Diagnosis: Dysuria[ICD10: R30.0] Diagnosis: Essential (primary) hypertension[ICD10: I10] Diagnosis: Major depressive disorder, recurrent, moderate[ICD10: F33.1] Alis Spring MD, [facility] CPT-4: 97063 11/15/2018 ([id number]) 45906 EST. P ATIENT, LEVEL IV Diagnosis: Eructation[ICD10: R14.2] Diagnosis: Nausea[ICD10: R11.0] Diagnosis: Chest pain, unspecified[ICD10: R07.9] Diagnosis: Diarrhea, unspecified[ICD10: R19.7] Alis Spring MD, [facility] CPT-4: 54826 10/25/2018 ([id number]) 17636 EST. P ATIENT, LEVEL IV Diagnosis: Essential (primary) hypertension[ICD10: I10] Diagnosis: Low back pain[ICD10: M54.5] Diagnosis: Major depressive disorder, recurrent, moderate[ICD10: F33.1] Alis Spring MD, [facility] CPT-4: 29380 10/13/2018 ([id number]) 23144 EST. P ATIENT, LEVEL IV Diagnosis: Essential (primary) hypertension[ICD10: I10] Diagnosis: Dysuria[ICD10: R30.0] Diagnosis: Low back pain[ICD10: M54.5] Alis Spring MD, [facility] CPT- 4: 17139 09/15/2018 ([id number]) 18044 EST. P ATIENT, LEVEL III Diagnosis: Essential (primary) hypertension[ICD10: I10] Diagnosis: Low back pain[ICD10: M54.5] Alis Spring MD, [facility] CPT- 4: 41515 08/15/2018 ([id number]) 26650 EST. P ATIENT, LEVEL III Diagnosis: Essential (primary) hypertension[ICD10: I10] Diagnosis: Cough[ICD10: R05] Diagnosis: Low back pain[ICD10: M54.5] Alis Spring MD, [facility] [facility] CPT- [facility]: 29791 08/01/2018 ([id number]) 20641 EST. P ATIENT, LEVEL IV Diagnosis: Encounter for immunization[ICD10: Z23] Diagnosis: Essential (primary) hypertension[ICD10: I10] Diagnosis: Chronic atrial fibrillation[ICD10: I48.2] Diagnosis: Major depressive disorder, recurrent, mild[ICD10: F33.0] Scarlett Spring MD, C CPT-4: 43375 04/20/2018 ([id number]) 54250 EST. P ATIENT, LEVEL IV Diagnosis: Essential (primary) hypertension[ICD10: I10] Diagnosis: Obstructive sleep apnea (adult) (pediatric)[ICD10: G47.33] Diagnosis: Chronic atrial fibrillation[ICD10: I48.2] Scarlett Spring MD, C CPT-4: 22412 12/16/2017 ([id number]) 71780 EST. P ATIENT, LEVEL IV Diagnosis: Essential (primary) hypertension[ICD10: I10] Diagnosis: Chronic atrial fibrillation[ICD10: I48.2] Scarlett Spring MD, C CPT-4: 63528 08/23/2017 ([id number]) 72959 EST. P ATIENT, LEVEL IV Diagnosis: Paroxysmal atrial fibrillation[ICD10: I48.0] Diagnosis: Essential (primary) hypertension[ICD10: I10] Scarlett Spring MD, C CPT-4: 73905 02/02/2017 02739 EST. PATIENT, LEVEL III Diagnosis: Acute laryngopharyngitis[ICD10: J06.0] Diagnosis: Cough[ICD10: R05] Diagnosis: Pleurodynia[ICD10: R07.81] Diagnosis: Other dorsalgia[ICD10: M54.89] Kassandra Spring MD, [facility] CPT-4: 52386 11/26/2016 ([id number]) 91905 EST. P ATIENT, LEVEL IV Diagnosis: Essential (primary) hypertension[ICD10: I10] Diagnosis: Pain in left knee[ICD10: M25.562] Diagnosis: Low back pain[ICD10: M54.5] Diagnosis: Major depressive disorder, recurrent, moderate[ICD10: F33.1] Scarlett Spring MD, [facility] CPT-4: 25322 10/07/2016 ([id number]) 27555 EST. P ATIENT, LEVEL IV Diagnosis: Essential (primary) hypertension[ICD10: I10] Diagnosis: Rash and other nonspecific skin eruption[ICD10: R21] Diagnosis: Major depressive disorder, recurrent, mild[ICD10: F33.0] Scarlett Spring MD, [facility] CPT-4: 86486 09/16/2016 64177 EST. PATIENT, LEVEL IV Diagnosis: Pain in left lower leg[ICD10: M79.662] Diagnosis: Pain in left knee[ICD10: M25.562] Kassandra Spring MD, [facility] CPT-4: 41106 09/07/2016 ([id number]) 69740 EST. P ATIENT, LEVEL IV Diagnosis: Encounter for immunization[ICD10: Z23] Diagnosis: Essential (primary) hypertension[ICD10: I10] Diagnosis: Mixed hyperlipidemia[ICD10: E78.2] Scarlett Spring MD, [facility] CPT- 4: 31556 04/08/2016 ([id number]) 37616 EST. P ATIENT, LEVEL III Diagnosis: Essential (primary) hypertension[ICD10: I10] Diagnosis: Shortness of breath[ICD10: R06.02] Scarlett Spring MD, [facility] CPT- 4: 78391 03/05/2016 ([id number]) 55094 EST. P ATIENT, LEVEL III Diagnosis: Chronic obstructive pulmonary disease, unspecified[ICD10: J44.9] Scarlett Spring MD, [facility] CPT-4: 86742 12/04/2015 ([id number]) 16330 EST. P ATIENT, LEVEL IV Diagnosis: Essential (primary) hypertension[ICD10: I10] Diagnosis: Allergic rhinitis due to pollen[ICD10: J30.1] Scarlett Spring MD, C CPT-4: 97656 11/18/2015 ([id number]) 69815 EST. P ATIENT, LEVEL IV Diagnosis: Localized edema[ICD10: R60.0] Diagnosis: Dysuria[ICD10: R30.0] Diagnosis: Essential (primary) hypertension[ICD10: I10] Diagnosis: Nausea[ICD10: R11.0] Alis Spring MD, [facility] CPT-4: 45997 09/30/2015 ([id number]) 52591 EST. P ATIENT, LEVEL II Diagnosis: Methicillin susceptible Staphylococcus aureus infection as the cause of diseases classified elsewhere[ICD10: B95.61] Diagnosis: Methicillin susceptible Staphylococcus aureus infection, unspecified site[ICD10: A49.01] Alis Spring MD, [facility] CPT-4: 81131 09/09/2015 ([id number]) 72050 EST. P ATIENT, LEVEL III Diagnosis: Dermatophytosis, unspecified[ICD10: B35.9] Diagnosis: Rash and other nonspecific skin eruption[ICD10: R21] Scarlett Spring MD, [facility] CPT-4: 48136 08/28/2015 ([id number]) 32593 EST. P ATIENT, LEVEL IV Diagnosis: Essential (primary) hypertension[ICD10: I10] Diagnosis: Gastro-esophageal reflux disease without esophagitis[ICD10: K21.9] Diagnosis: Other dorsalgia[ICD10: M54.89] Scarlett Spring MD, [facility] CPT-4: 45905 07/09/2015 ([id number]) OFFICE VISI T, [facility] - LEVEL 4 Diagnosis: ESSENTIAL HYPERTENSION[ICD9: 401.9] Diagnosis: Osteoporosis[ICD9: 733.00] Diagnosis: Back pain[ICD9: 724.5] Diagnosis: Insomnia[ICD9: 780.52] Diagnosis: ESOPHAGEAL REFLUX[ICD9: 530.81] Scarlett Spring MD, [facility] CPT-4: 17838 03/06/2015 Plan of Care Planned Activity Notes [...] culture urine - treat as indicated 11/15/2018 Patient Education: Patient Medication Summary Completed 11/15/2018 Patient Education: Depression Completed 11/15/2018 Care Plan: Urine Culture Pending 11/15/2018 Visit Plan: Gastroenteritis - discu ssed [...] in ER 10/25/2018 Appointment: Alis Muhammad WPtel: [address] [place], [place] [phone] (15 min) Moderate 10/25/2018 Patient Education: Patient [...] current treatment 10/13/2018 Appointment: Alis Muhammad WPtel: [phone] (15 min) Moderate 10/13/2018 Patient Education: Patient [...] Dysuria-check Ua 09/15/2018 Appointment: Alis Muhammad WPtel: [phone] (30 min) Complex 09/15/2018 Patient Education: Patient Medication Summary Completed 09/15/2018 Patient Education: Hypertension Completed 09/15/2018 Patient Education: Back Pain Completed 09/15/2018 Appointment: Sabrina Sevilla 08/18/2018 Patient Education: Patient Medication Summary Completed [...] not improve 08/15/2018 Appointment: [phone] (30 min) Complex 08/15/2018 Patient Education: Patient Medication Summary Completed 08/15/2018 Patient Education: Back Pain Completed 08/15/2018 Visit Plan: HTN-onofre induced cough-s top lisinopril -start losartan -monitor blood pressure and follow up in 2 weeks Low back pain-xray lumbar spine and refer for PT 08/01/2018 Appointment: [facility] Muhammad [phone] (15 min) Moderate 08/01/2018 Patient Education: Patient Medication Summary Completed 08/01/2018 Patient Education: Back Pain Completed 08/01/2018 Care Plan: X-RAY EXAM L-S SPINE 2/3 VWS LOINC : 39432-4 Pending 08/01/2018 Visit Plan: Hypertension - well [...] today. 04/20/2018 App[facility]ment: [phone] [facility] (15 min) Moderate 04/20/2018 Patient Education: Patient [...] Argueta WPtel: [phone] [facility] [place] [address] - Annual Wellness Visit 02/09/2018 Patient Education: [...] every night. 12/16/2017 Appointment: Scarlett Spring WPtel: [facility] (15 min) Moderate [...] becoming uncontrolled. 08/23/2017 Appointment: Scarlett Spring WPtel[facility] [phone] [facility] (15 min) Moderate 08/23/2017 Patient Education: Patient [...] cardiology 02/03/2017 Appointment: Kassandra Argueta [facility]Ptel[phone] [facility] [facility] - Annual Wellness Visit 02/03/2017 [...] home. 02/02/2017 Appointment: Scarlett Spring [facility]Ptel[facility] [phone] [facility] (15 min) Moderate 02/02/2017 Patient Education: [...] improve. 11/26/2016 Appointment: Kass[facility] Argueta [facility]Ptel[phone] [facility] (30 min) Complex 11/26/2016 Patient Education: Patient [...] symptoms. 10/07/2016 Appointment: Scarlett Spring WPtel[facility] [phone] [facility] (15 min) Moderate 10/07/2016 Patient Education: Patient Medication Summary Completed 10/07/2016 Patient Education: Obesity Completed 10/07/2016 Patient Education: Hypertension Completed 10/07/2016 Care Plan: VASCULAR STUDY Pending 10/04/2016 Care Plan: X-RAY EXAM OF KNEE 3 [facility] : 13847-8 Pending 10/04/2016 Visit Plan: Hypertension - well [...] paroxetine 09/16/2016 Appointment: Scarlett Spring WPtel[facility] [phone] [facility] (15 min) Moderate 09/16/2016 Patient Education: [...] worsening or does not improve. 09/07/2016 Appointment: Kassanrda Argueta [facility]Ptel[phone] [facility] (10 min) Simple 09/07/2016 Patient Education: Patient [...] mammogram order 04/08/2016 Appointment: Scarlett Spring WPtel: [phone] [facility] [place] (15 min) Moderate 04/08/2016 Patient [...] days. 03/05/2016 Appointment: Scarlett Spring WPtel[facility] [phone] [facility] (15 min) Moderate 03/05/2016 Patient Education: Patient Medication Summary Completed 03/05/2016 Visit Plan: COPD - chronic problem for this patient. We have reviewed chronic treatment strategy, symptom control, and plans for acute exacerbations. No changes today to the current treatment plan as the patient is stable, monitor for acute changes. anoro samples given to the patient 12/04/2015 Appointment: Scarlett Spring WPtel[facility] [phone] [facility] (15 min) Moderate 12/04/2015 Patient Education: [...] spray. 11/18/2015 Appointment: Scarlett Spring WPtel: [address] [facility] (15 min) Moderate 11/18/2015 Patient Education: Patient Medication Summary Completed 11/18/2015 Patient Education: Obesity Completed 11/18/2015 Patient Education: Hypertension Completed 11/18/2015 Appointment: Scarlett Spring WPtel: [facility] [address] (15 min) Moderate 11/07/2015 Visit Plan: [...] Visit Plan: MSSA of groin and under [id number]-jkdholzxr-shuhdz bactrim and call if rash does not completely resolve 09/09/2015 Appointment: (15 min) Moderate 09/09/2015 Patient Education: Patient Medication Summary Completed 09/09/2015 Visit Plan: Rash - dermatophytosis - recommended oral diflucan, topical nystatin cream, rtc in 10 days to assure healing. check of culture - may need to consider treatment with antibiotic depending on the groin culture report. 08/28/2015 Appointment: Scarlett Spring WPtel: [address] [place] [address] (15 min) Moderate 08/28/2015 Patient Education: Patient [...] not improving. 07/09/2015 Appointment: Scarlett Spring WPtel: [phone] [facility] [place] (15 min) Moderate 07/09/2015 Patient Education: Patient Medication Summary Completed 07/09/2015 Patient Education: Hypertension Completed 07/09/2015 Visit Plan: Hypertension - marielle cabrera [place] - continue with current medications, continue [...] not improving. 03/06/2015 Appointment: Scarlett Spring WPtel: [phone] [facility] [place] (S) New Patient 03/06/2015 Patient [...] will find out if anyone comes to [place] check UA start probiotic daily . Hypertension [...] or if any worse bolster pillow or triindad mbar support pillow to use when seated [...]
--- OUTSIDE RECORDS SUMMARY | 2020-01-23 14:30 | XMS REPORT | CCD ---
Author Author Jeannine Spring Organization Scarlett Spring MD, [facility] Address [address] [place] [address] Phone Care Team Providers Care Documentation Liaison Name Role Phone PP Unavailable CCM Unavailable Summary Purpose Interface Exchange Insurance Providers Payer name Policy type / Coverage type Covered libertarian ID Effective Begin Date Effective End Date WPS Medicare Part B Medicare Part B [id number] Unknown [place] [employer] Medicare Part B [id number] Unkn own Family history Mother Diagnosis Age At Onset Hypertension Unknown Heart Attack Unknown Brother Diagnosis Age At Onset Heart disease Unknown Runs in the family Diagnosis Age At Onset Heart disease Unknown Daughter Diagnosis Age At Onset Heart Attack Unknown Hyperlipidemia Unknown Hypertension Unknown Social History Social History Element Codes Description Effective Dates Number of children Unknown 2 daughter lives in [place], son - does not have contact 09/16/[address]: 0745370 Quit over 10 years ago 1990 - previously smoked 2ppd x 25 years. 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/2015 Allergies, Adverse Reactions, Alerts Substance Reaction [...] simethicone 125 mg c hewable tablet RxNorm: 458958 1 Tablet(s) PO qid pr n 10/25/2018 No Stop Date Active promethazine 25 mg t ablet RxNorm: 075037 1 Tablet(s) PO Q6 PRN 10/25/2018 No Stop Date Active paroxetine 40 mg tablet RxNorm: 9586883 1 Tablet(s) PO daily 10/13/2018 04/10/2019 Active valsartan 160 mg tablet RxNorm: 724072 1 Tablet(s) PO daily 10/13/2018 04/10/2019 Active Ambien 10 mg tablet RxNorm: 506170 TAKE ONE TABLET BY MOUTH AT BEDTIME N EEDED 09/23/2018 11/21/2018 Ac tive terazosin 5 mg capsule RxNorm: 720769 TAKE ONE CAPSULE BY MOUTH DAILY 09/23/2018 02/19/2019 Ac tive trazodone 50 mg tablet RxNorm: 041483 TAKE ONE TABLET BY MOUTH DAILY 09/23/2018 03/21/2019 Ac tive losartan 50 mg tablet RxNorm: 165822 1 Tablet(s) PO daily 09/15/2018 10/12/2018 Inactive omeprazole 20 mg cap marina,delayed release RxNorm: 046360 TAKE ONE CAPSULE BY M OUTH EVERY NIGHT AT BEDTIME 09/12/2018 03/10/2019 Active Keflex 500 mg capsule RxNorm: 656334 1 Capsule(s) PO TID 08/18/2018 08/17/2018 Inactive Keflex 500 mg capsule RxNorm: 538591 1 Capsule(s) PO TID 08/18/2018 08/24/2018 Inactive take probiotic while on abx paroxetine 20 mg tablet RxNorm: 5654593 TAKE ONE TABLET BY MOUTH DAILY 08/12/2018 10/12/2018 In active losartan 25 mg tablet RxNorm: 745544 1 Tablet(s) PO daily 08/01/2018 09/14/2018 Inactive losartan 25 mg tablet RxNorm: 644409 1 Tablet(s) PO daily 08/01/2018 10/12/2018 Inactive trazodone 50 mg tablet RxNorm: 962191 TAKE ONE TABLET BY MOUTH DAILY 07/25/2018 09/22/2018 In active Ambien 10 mg tablet RxNorm: 662993 Tablet(s) TAKE ONE TABLET BY MOUTH AT BE DTIME 06/24/2018 09/23/2018 Inactive trazodone 50 mg tablet RxNorm: 157779 TAKE ONE TABLET BY MOUTH DAILY 04/25/2018 07/23/2018 In active Ambien 10 mg tablet RxNorm: 184638 Tablet(s) TAKE ONE TABLET BY MOUTH AT BE DTIME 03/23/2018 06/19/2018 Inactive terazosin 5 mg capsule RxNorm: 159677 TAKE ONE CAPSULE BY MOUTH DAILY 03/14/2018 09/09/2018 In active Ambien 10 mg tablet RxNorm: 234611 Tablet(s) TAKE ONE TABLET BY MOUTH AT BE DTIME 01/18/2018 09/14/2018 Inactive trazodone 50 mg tablet RxNorm: 313481 TAKE ONE TABLET BY MOUTH ONCE DAILY 01/10/2018 03/22/2018 In active trazodone 50 mg tablet RxNorm: 403975 Tablet(s) TAKE ONE TABLET BY MOUTH ONCE DAILY 01/10/2018 04/24/2018 Inactive Ambien 10 mg tablet RxNorm: 400102 Tablet(s) TAKE ONE TABLET BY MOUTH AT BE DTIME 10/22/2017 01/17/2018 Inactive trazodone 50 mg tablet RxNorm: 076166 TAKE ONE TABLET BY MOUTH ONCE DAILY 10/18/2017 01/09/2018 In active omeprazole 20 mg cap marina,delayed release RxNorm: 744078 TAKE ONE CAPSULE BY M OUTH ONCE DAILY AT BEDTIME 08/27/2017 09/11/2018 Inactive trazodone 50 mg tablet RxNorm: 316998 TAKE ONE TABLET BY MOUTH ONCE DAILY 08/18/2017 10/17/2017 In active Ambien 10 mg tablet RxNorm: 292113 Tablet(s) TAKE ONE TABLET BY MOUTH AT BE DTIME 08/18/2017 03/22/2018 Inactive paroxetine 20 mg tablet RxNorm: 1575978 TAKE ONE TABLET BY MOUTH ONCE DAILY 07/27/2017 08/11/2018 In active Ambien 10 mg tablet RxNorm: 169055 Tablet(s) TAKE ONE TABLET BY MOUTH AT BE DTIME 06/23/2017 03/22/2018 Inactive omeprazole 20 mg cap marina,delayed release RxNorm: 846162 TAKE ONE CAPSULE BY M OUTH ONCE DAILY AT BEDTIME 04/23/2017 08/20/2017 Inactive trazodone 50 mg tablet RxNorm: 704918 TAKE ONE TABLET BY MOUTH ONCE DAILY 04/13/2017 08/10/2017 In active terazosin 5 mg capsule RxNorm: 896586 Capsule(s) TAKE ONE CAPSULE BY MOUTH TATA 04/08/2017 03/03/2018 In active Ambien 10 mg tablet RxNorm: 361420 Tablet(s) TAKE ONE TABLET BY MOUTH AT BE DTIME 02/17/2017 03/22/2018 Inactive Tylenol-Codeine #3 3 00 mg-30 mg tablet RxNorm: 158908 1 Tablet(s) PO QID as needed 02/02/2017 11/14/2018 In active metoprolol succinate ER 50 mg tablet,extended release 24 hr RxNorm: 261791 TAKE ONE TABLET BY MOUTH ONCE DAILY 12/23/2016 02/02/2017 Inactive Zithromax Z-Ted 250 mg tablet RxNorm: 757902 1 Tablet(s) PO UD 11/26/2016 02/16/2017 Inactive trazodone 50 mg tablet RxNorm: 410516 TAKE ONE TABLET BY MOUTH ONCE DAILY 11/12/2016 03/11/2017 In active Ambien 10 mg tablet RxNorm: 008071 Tablet(s) TAKE ONE TABLET BY MOUTH AT BE [facility] 10/22/2016 02/15/2017 Inactive paroxetine 20 mg tablet RxNorm: 8695518 1 Tablet(s) PO daily TAKE ONE TABLET BY MOUTH DAILY 09/16/2016 06/12/2017 Inactive meloxicam 7.5 mg tablet RxNorm: 090165 1 Tablet(s) PO daily 09/16/2016 11/14/2016 Inactive Protonix 40 mg table t,delayed release RxNorm: 435687 1 Tablet(s) PO daily 09/16/2016 08/22/2017 In active sucralfate 1 gram ta blet RxNorm: 078642 1 Tablet(s) PO TID 09/16/2016 08/22/2017 Inactive Ambien 10 mg tablet RxNorm: 402218 Tablet(s) TAKE ONE TABLET BY MOUTH AT [facility] 08/24/2016 03/22/2018 Inactive trazodone 50 mg tablet RxNorm: 153345 Tablet(s) TAKE ONE TABLET BY MOUTH DAILY 07/29/2016 11/11/2016 In active Ambien 10 mg tablet RxNorm: 064495 TAKE ONE TABLET BY MOUTH AT BEDTIME 06/23/2016 03/22/2018 In active Ambien 10 mg tablet RxNorm: 838121 Tablet(s) TAKE ONE TABLET BY MOUTH EVERY NIGHT AT BEDTIME 06/22/2016 06/23/2016 Inactive Lasix 40 mg tablet RxNorm: 990471 1 Tablet(s) PO daily as needed for swell ing 04/03/2016 09/15/2016 In active potassium chloride E R 20 mEq tablet,extended release RxNorm: 135950 1 Tablet(s) PO daily for swelling take with lasix as needed 04/03/2016 09/15/2016 Inactive Ambien 10 mg tablet RxNorm: 416467 Tablet(s) TAKE ONE TABLET BY MOUTH EVERY NIGHT AT BEDTIME 04/03/2016 03/22/2018 Inactive omeprazole 20 mg cap marina,delayed release RxNorm: 827140 TAKE ONE CAPSULE BY M OUTH EVERY NIGHT AT BEDTIME 03/31/2016 09/15/2016 Inactive paroxetine 20 mg tablet RxNorm: 3957217 TAKE ONE TABLET BY MOUTH DAILY 03/31/2016 09/15/2016 In active trazodone 50 mg tablet RxNorm: 737581 TAKE ONE TABLET BY MOUTH DAILY 03/20/2016 07/28/2016 In active terazosin 5 mg capsule RxNorm: 649649 TAKE ONE CAPSULE BY MOUTH DAILY 03/06/2016 10/06/2016 In active Ambien 10 mg tablet RxNorm: 205992 Tablet(s) TAKE ONE TABLET BY MOUTH EVERY NIGHT AT BEDTIME 01/17/2016 04/02/2016 Inactive loratadine 10 mg tablet RxNorm: 502089 1 Tablet(s) PO daily 01/15/2016 09/15/2016 Inactive mupirocin 2 % topica l ointment RxNorm: 521338 1 Application TOP TID 11/18/2015 12/01/2015 Inactive metoprolol succinate ER 50 mg tablet,extended release 24 hr RxNorm: 424143 1 Tablet(s) PO daily 11/18/2015 11/11/2016 Inactive loratadine 10 mg tablet RxNorm: 716083 1 Tablet(s) PO daily 11/18/2015 01/14/2016 Inactive Lasix 40 mg tablet RxNorm: 781463 1 Tablet(s) PO daily as needed for swell ing 10/30/2015 11/28/2015 In active potassium chloride E R 20 mEq tablet,extended release RxNorm: 830703 1 Tablet(s) PO daily for swelling take with lasix as needed 10/30/2015 11/28/2015 Inactive Tylenol-Codeine #3 3 00 mg-30 mg tablet RxNorm: 800870 1 Tablet(s) PO QID as needed 10/25/2015 02/01/2017 In active Ambien 10 mg tablet RxNorm: 877641 Tablet(s) TAKE ONE TABLET BY MOUTH EVERY NIGHT AT BEDTIME 10/18/2015 03/22/2018 Inactive Diflucan 150 mg tablet RxNorm: 882500 1 Tablet(s) PO daily 10/01/2015 12/03/2015 Inactive Lasix 20 mg tablet RxNorm: 710880 1 Tablet(s) PO PRN fror swelling 09/27/2015 10/29/2015 In active potassium chloride E R 10 mEq capsule,extended release RxNorm: 525656 1 Capsule(s) PO PRN for swelling take with lasix 09/27/2015 10/29/2015 Inactive Bactrim DS 800 mg-16 0 mg tablet RxNorm: 558022 1 Tablet(s) PO BID 09/02/2015 09/11/2015 Inactive Bactrim DS 800 mg-16 0 mg tablet RxNorm: 229390 1 Tablet(s) PO BID 09/02/2015 09/01/2015 Inactive nystatin 100,000 uni t/gram topical cream RxNorm: 887353 1 Gram(s) TOP TID 08/28/2015 09/26/2015 In active Diflucan 150 mg tablet RxNorm: 415734 1 Tablet(s) PO daily 08/28/2015 09/06/2015 Inactive betamethasone diprop ionate 0.05 % topical ointment RxNorm: 265762 1 Application TOP TID to affected area 08/02/2015 02/01/2017 Inactive nystatin 100,000 uni t/gram topical powder RxNorm: 308431 1 Gram(s) TOP QID 07/09/2015 08/01/2015 In active Ambien 10 mg tablet RxNorm: 339716 1 Tablet(s) PO QHS 06/19/2015 06/18/2015 Inactive Ambien 10 mg tablet RxNorm: 883418 TAKE ONE TABLET BY MOUTH EVERY NIGHT AT BEDTIME 06/19/2015 09/16/2015 Inactive Vitamin D2 50,000 un it capsule RxNorm: 575775 1 Capsule(s) PO QW 03/07/2015 03/06/2015 Inactive Vitamin D2 50,000 un it capsule RxNorm: 697742 1 Capsule(s) PO QW 03/07/2015 05/05/2015 Inactive terazosin 5 mg capsule RxNorm: 311204 1 Capsule(s) PO daily 03/06/2015 02/28/2016 Inactive [SAVINGS FOR NON-COVERED DRUGS -- BIN:00 3585, N: [id number], Group: XXXXX, ID# [id number], Questions: . THIS IS NOT INSURANCE.] trazodone 50 mg tablet RxNorm: 003495 1 Tablet(s) PO daily 03/06/2015 02/28/2016 Inactive paroxetine 20 mg tablet RxNorm: 9695636 1 Tablet(s) PO daily 03/06/2015 02/28/2016 Inactive Tylenol-Codeine #3 3 00 mg-30 mg tablet RxNorm: 688268 1 Tablet(s) PO QID as needed 03/06/2015 07/02/2015 In active amlodipine 10 mg tablet RxNorm: 860111 1 Tablet(s) PO daily 03/06/2015 11/17/2015 Inactive metoprolol succinate ER 25 mg tablet,extended release 24 hr RxNorm: 013991 1 Tablet(s) PO daily 03/06/2015 11/17/2015 Inactive omeprazole 20 mg cap marina,delayed release RxNorm: 331423 1 Capsule(s) PO QHS 03/06/2015 02/28/2016 In active omeprazole 20 mg cap marina,delayed release RxNorm: 925361 1 Capsule(s) PO QHS 01/31/2015 01/30/2015 In active omeprazole 20 mg cap marina,delayed release RxNorm: 446983 1 Capsule(s) PO QHS 01/31/2015 01/30/2015 In active omeprazole 20 mg cap marina,delayed release RxNorm: 796823 1 Capsule(s) PO QHS 01/31/2015 03/05/2015 In active Ambien 10 mg tablet RxNorm: 779958 1 Tablet(s) PO QHS 12/25/2014 04/21/2015 Inactive paroxetine 20 mg tablet RxNorm: 465962 1 Tablet(s) PO daily 12/25/2014 12/24/2014 Inactive Ambien 10 mg tablet RxNorm: 533068 1 Tablet(s) PO QHS 12/25/2014 12/24/2014 Inactive paroxetine 20 mg tablet RxNorm: 848102 1 Tablet(s) PO daily 12/25/2014 03/05/2015 Inactive terazosin 5 mg capsule RxNorm: 865406 1 Capsule(s) PO daily 11/23/2014 03/05/2015 Inactive [SAVINGS FOR NON-COVERED DRUGS -- BIN:00 3585, PCN: [id number], Group: XXXXX, ID# [id number], Questions: . THIS IS NOT INSURANCE.] terazosin 5 mg capsule RxNorm: 106130 1 Capsule(s) PO daily 11/23/2014 11/22/2014 Inactive Lasix 20 mg tablet RxNorm: 129395 1 Tablet(s) PO daily No Start Date Active K-Dur 10 mEq tablet, extended release RxNorm: 277956 1 Tablet(s) PO daily No Start Date Active hydrochlorothiazide 25 mg tablet RxNorm: 275969 1 Tablet(s) PO daily No Start Date Active Vitamin D3 2,000 uni t tablet RxNorm: 067618 1 Tablet(s) PO daily No Start Date Active amiodarone 200 mg ta blet RxNorm: 772404 1 Tablet(s) PO BID No Start Date Active Zetia 10 mg tablet RxNorm: 827295 1 Tablet(s) PO daily No Start Date Active Lipitor 80 mg tablet RxNorm: 210077 1/2 Tablet(s) PO daily No Start Date Active Coumadin 4 mg tablet RxNorm: 966251 1 Tablet(s) PO daily No Start Date Active metoprolol succinate ER 25 mg tablet,extended release 24 hr RxNorm: 493737 1 Tablet(s) PO daily No Start Date 03/05/2015 Inactive Entresto 49 mg-51 mg tablet RxNorm: 8507853 1 Tablet(s) PO BID No Start Date 04/19/2018 Inactive sotalol 80 mg tablet RxNorm: 6033565 1 Tablet(s) PO BID No Start Date 04/19/2018 Inactive betamethasone diprop ionate 0.05 % topical ointment RxNorm: 580843 1 Application TOP TID to affected area No Start Date 08/01/2015 Inactive trazodone 50 mg tablet RxNorm: 130623 1 Tablet(s) PO daily No Start Date 03/05/2015 Inactive potassium chloride E R 10 mEq capsule,extended release RxNorm: 016913 1 Capsule(s) PO PRN for swelling take with lasix No Start Date 09/26/2015 Inactive Eliquis 5 mg tablet RxNorm: 8091951 1 Tablet(s) PO BID No Start Date 09/14/2018 Inactive amlodipine 10 mg tablet RxNorm: 521891 1 Tablet(s) PO daily No Start Date 03/05/2015 Inactive isosorbide mononitra te ER 30 mg tablet,extended release 24 hr RxNorm: 653515 1 Tablet(s) PO daily No Start Date 08/22/2017 Inactive aspirin 81 mg tablet ,delayed release RxNorm: 076623 1 Tablet(s) PO daily No Start Date 02/02/2017 Inactive Lasix 20 mg tablet RxNorm: 434618 1 Tablet(s) PO PRN fror swelling No Start Date 09/26/2015 Inactive lisinopril 5 mg tablet RxNorm: 427497 1 Tablet(s) PO daily No Start Date 07/31/2018 Inactive Crestor 40 mg tablet RxNorm: 796301 1 Tablet(s) PO daily No Start Date 09/15/2016 Inactive metoprolol succinate ER 100 mg tablet,extended release 24 hr RxNorm: 840144 1 Tablet(s) PO daily No Start Date [...] Item Item Code Result Date Culture Urine [id number] URI NE CULTURE SEE NOTES 08/22/2018 Culture Urine [id number] Con tinued Results 08/22/2018 Urine Culture Ucult Comp lete >100,000 col/ml aerobic grow th sent to ref lab 08/19/2018 Comp Metabolic Lpu617 NA 140 mEq/L 08/01/2018 Comp Metabolic Wso662 K 4.2 mEq/L 08/01/2018 Comp Metabolic Ucz501 CL 102 mEq/L 08/01/2018 Comp Metabolic Cuz584 CO2 27.0 mEq/L 08/01/2018 Comp Metabolic Xbs184 AN ION GAP 15 08/01/2018 Comp Metabolic Ccj244 GL UCOSE 107 mg/dL 08/01/2018 Comp Metabolic Lje614 Cr eat 1.0 mg/dL 08/01/2018 Comp Metabolic Tid365 eG FR 58 ml/min/1.73m2 08/01 Comp Metabolic Aiy712 BUN 10 mg/dL 08/01/2018 Comp Metabolic Hbu157 B/ C Ratio 10.0 Ratio 08/01/2018 Comp Metabolic Sbf479 CA LCIUM 8.9 mg/dL 08/01/2018 Comp Metabolic Gxr398 AL K PHOS 68 U/L 08/01/2018 Comp Metabolic Vnc702 T(SGOT) 18 U/L 08/01/2018 Comp Metabolic Ivx396 AL T(SGPT) 14 U/L 08/01/2018 Comp Metabolic Wvo078 BI LI T 0.5 mg/dL 08/01/2018 Comp Metabolic Buq856 AL BUMIN 4.0 g/dL 08/01/2018 Comp Metabolic Dbk213 TP RO 6.3 g/dL 08/01/2018 Comp Metabolic Scg142 GL OB 2.3 g/dL 08/01/2018 Comp Metabolic Vad371 A/ G Ratio 1.7 Ratio 08/01/2018 Comp Metabolic Nno638 Os mo 279 mOsmo 08/01/2018 Tsh Ord6 [...] 27.3 pg 08/01/2018 Cbc With Differential Ord2 Irion% 9.8 % 08/01/2018 Cbc With Differential Ord2 [...] 0.79 K/ul 08/01/2018 Cbc With Differential Ord2 Irion ABS# 0.4 K/ul 08/01/2018 Cbc With Differential Ord2 Eos ABS# 0.1 K/ul 08/01/2018 Cbc With Differential Ord2 Baso ABS# 0.0 K/ul 08/01/2018 Lipid Ord30 CHOL 234 mg/dL 08/01/2018 Lipid Ord30 HDL 69.0 mg/dl 08/01/2018 Lipid Ord30 TRIG 57 mg/dL 08/01/2018 Lipid Ord30 LDL 154 mg/dL 08/01/2018 Lipid Ord30 C/HDL 3.4 Ratio 08/01/2018 Comp Metabolic Jnz048 NA 137 mEq/L 09/30/2015 Comp Metabolic Nhb150 K 4.5 mEq/L 09/30/2015 Comp Metabolic Zwp047 CL 102 mEq/L 09/30/2015 Comp Metabolic Fiu499 CO2 26.0 mEq/L 09/30/2015 Comp Metabolic Yzh571 AN ION GAP 14 09/30/2015 Comp Metabolic Byz527 GL UCOSE 89 mg/dL 09/30/2015 Comp Metabolic Yiw073 Cr eat 0.8 mg/dL 09/30/2015 Comp Metabolic Bgd195 eG FR 79 ml/min/1.73m2 09/29 Comp Metabolic Aqf954 BUN 14 mg/dL 09/30/2015 Comp Metabolic Vxg173 B/ C Ratio 18.2 Ratio 09/30/2015 Comp Metabolic Gvu927 CA LCIUM 8.9 mg/dL 09/30/2015 Comp Metabolic Nhc251 AL K PHOS 65 U/L 09/30/2015 Comp Metabolic Ltr593 T(SGOT) 26 U/L 09/30/2015 Comp Metabolic Zno680 AL T(SGPT) 18 U/L 09/30/2015 Comp Metabolic Icp003 BI LI T 0.6 mg/dL 09/30/2015 Comp Metabolic Owz454 AL BUMIN 3.8 g/dL 09/30/2015 Comp Metabolic Ehf599 TP RO 6.6 g/dL 09/30/2015 Comp Metabolic Tat212 GL OB 2.8 g/dL 09/30/2015 Comp Metabolic Cue669 A/ G Ratio 1.4 Ratio 09/30/2015 Comp Metabolic Eur744 Os mo 274 mOsmo 09/30/2015 Cbc With [...] 27.7 pg 09/30/2015 Cbc With Differential Ord2 Irion% 10.7 % 09/30/2015 Cbc With Differential Ord2 [...] 1.10 K/ul 09/30/2015 Cbc With Differential Ord2 Irion ABS# 0.6 K/ul 09/30/2015 Cbc With Differential Ord2 Eos ABS# 0.2 K/ul 09/30/2015 Cbc With Differential Ord2 Baso ABS# 0.0 K/ul 09/30/2015 Cbc With Differential Ord2 New Analyzer Notice Please note new ref ranges s tarting 08-07-2015 due to implemntation of new five part differential hematolgy analyzer. 09/30/2015 Tsh Ord6 hTSH II 1.05 uIU/mL 03/06/2015 Comp Metabolic Zln536 NA 137 mEq/L 03/06/2015 Comp Metabolic Ccb222 K 4.3 mEq/L 03/06/2015 Comp Metabolic Rzd814 CL 104 mEq/L 03/06/2015 Comp Metabolic Xgt370 CO2 28.0 mEq/L 03/06/2015 Comp Metabolic Xei865 AN ION GAP 9 03/06/2015 Comp Metabolic Nma341 GL UCOSE 93 mg/dL 03/06/2015 Comp Metabolic Uzb639 Cr eat 0.8 mg/dL 03/06/2015 Comp Metabolic Qeu342 eG FR 81 ml/min/1.73m2 03/06 Comp Metabolic Wiz839 BUN 12 mg/dL 03/06/2015 Comp Metabolic Vvl965 B/ C Ratio 16.0 Ratio 03/06/2015 Comp Metabolic Goa725 CA LCIUM 8.9 mg/dL 03/06/2015 Comp Metabolic Hen613 AL K PHOS 56 U/L 03/06/2015 Comp Metabolic Wev060 T(SGOT) 22 U/L 03/06/2015 Comp Metabolic Abi415 AL T(SGPT) 15 U/L 03/06/2015 Comp Metabolic Aoc924 BI LI T 0.4 mg/dL 03/06/2015 Comp Metabolic Dca452 AL BUMIN 4.0 g/dL 03/06/2015 Comp Metabolic Lvi019 TP RO 6.5 g/dL 03/06/2015 Comp Metabolic Xvr453 GL OB 2.5 g/dL 03/06/2015 Comp Metabolic Xjr489 A/ G Ratio 1.6 Ratio 03/06/2015 Comp Metabolic Jeu393 Os mo 273 mOsmo 03/06/2015 Vitamin D 25 Oh Svb3054 VITAMIN D, 25 HYDROXY 28.14 ng/mL 03/06/2015 [...] Date URINALYSIS NONAUTO W /O SCOPE CPT-4: 25910 11/15/2018 URINALYSIS NONAUTO W /O SCOPE CPT-4: 95232 08/18/2018 ADMIN INFLUENZA VIRU S VAC CPT-4: G0008 04/20/2018 FLU VACC PRSV FREE I NC ANTIG Formatting Model/CDA Sections, Assigned to/Amparo Mims CPT-4: 96147Lqpzodf 04/20/2018 PPPS, SUBSEQ VISIT CPT- 4: G0439 02/09/2018 PPPS, SUBSEQ VISIT CPT- 4: G0439 02/03/2017 ADMIN INFLUENZA VIRU S VAC CPT-4: G0008 04/08/2016 ADMIN PNEUMOCOCCAL V ACCINE SNOMED CT: 92818773 CPT-4: G0009 04/08/2016 PNEUMOCOCCAL VACC [address]: 30734447 CPT-4: 33915 04/08/2016 FLU VACC PRSV FREE I NC ANTIG CPT-4: 19199 04/08/2016 Vital Signs Date Vital 11/15/2018 Blood Pressure 1: 144/76 Code: 8480-6 BMI: 42.3 Code: 51237-2 Heart Rate 1: 82 bpm Height: 5'7" SpO2: 96% Weight: 270 lbs 10/25/2018 Blood Pressure 1: 128/80 Code: 8480-6 BMI: 42.0 Code: 78129-4 Heart Rate 1: 93 bpm Height: 5'7" SpO2: 95% Weight: 268 lbs 10/13/2018 Blood Pressure 1: 162/76 Code: 8480-6 BMI: 42.0 Code: 09471-5 Heart Rate 1: 71 bpm Height: 5'7" SpO2: 96% Weight: 268 lbs 09/15/2018 Blood Pressure 1: 154/86 Code: 8480-6 BMI: 42.9 Code: 49874-9 Heart Rate 1: 88 bpm Height: 5'7" SpO2: 94% Weight: 274 lbs 08/15/2018 Blood Pressure 1: 140/90 Code: 8480-6 BMI: 40.7 Code: 65205-5 Heart Rate 1: 70 bpm Height: 5'7" SpO2: 93% Weight: 260 lbs 08/01/2018 Blood Pressure 1: 130/70 Code: 8480-6 BMI: 40.7 Code: 27770-1 Heart Rate 1: 80 bpm Height: 5'7" SpO2: 93% Weight: 260 lbs 04/20/2018 Blood Pressure 1: 128/68 Code: 8480-6 BMI: 41.7 Code: 50487-3 Heart Rate 1: 85 bpm Height: 5'7" SpO2: 94% Weight: 266 lbs 02/09/2018 Blood Pressure 1: 118/70 Code: 8480-6 BMI: 42.1 Code: 78744-5 Heart Rate 1: 58 bpm Height: 5'7" SpO2: 94% Weight: 269 lbs 12/16/2017 Blood Pressure 1: 132/86 Code: 8480-6 BMI: 42.7 Code: 78512-4 Heart Rate 1: 63 bpm Height: 5'7" SpO2: 94% Weight: 272 lbs 14 o z 08/23/2017 Blood Pressure 1: 150/82 Code: 8480-6 BMI: 42.0 Code: 04015-2 Heart Rate 1: 66 bpm Height: 5'7" SpO2: 96% Weight: 268 lbs 02/03/2017 Blood Pressure 1: 138/72 Code: 8480-6 BMI: 41.2 Code: 84216-8 Heart Rate 1: 96 bpm Height: 5'7" SpO2: 97% Weight: 263 lbs 02/02/2017 Blood Pressure 1: 140/90 Code: 8480-6 BMI: 41.2 Code: 00641-9 Heart Rate 1: 103 bpm Height: 5'7" SpO2: 94% Weight: 263 lbs 11/26/2016 Blood Pressure 1: 152/88 Code: 8480-6 BMI: 41.0 Code: 64497-8 Heart Rate 1: 71 bpm Height: 5'7" SpO2: 94% Temperature: 37.7 (C ) / 99.8 (F) Weight: 262 lbs 10/07/2016 Blood Pressure 1: 148/82 Code: 8480-6 BMI: 41.7 Code: 65068-7 Heart Rate 1: 58 bpm Height: 5'7" SpO2: 96% Weight: 266 lbs 09/16/2016 Blood Pressure 1: 122/70 Code: 8480-6 BMI: 42.0 Code: 50006-9 Heart Rate 1: 65 bpm Height: 5'7" SpO2: 96% Weight: 268 lbs 09/07/2016 Blood Pressure 1: 154/60 Code: 8480-6 BMI: 42.3 Code: 47925-4 Heart Rate 1: 101 bpm Height: 5'7" SpO2: 97% Weight: 270 lbs 04/08/2016 Blood Pressure 1: 128/70 Code: 8480-6 BMI: 41.4 Code: 73615-3 Heart Rate 1: 62 bpm Height: 5'7" SpO2: 95% Weight: 264 lbs 8 oz 03/05/2016 Blood Pressure 1: 144/78 Code: 8480-6 Blood Pressure 1: 139/72 Code: 8480-6 BMI: 41.9 Code: 43716-7 Heart Rate 1: 71 bpm Height: 5'7" SpO2: 93% Weight: 267 lbs 8 oz 12/04/2015 Blood Pressure 1: 132/70 Code: 8480-6 BMI: 41.3 Code: 73111-5 Heart Rate 1: 56 bpm Height: 5'7" SpO2: 96% Weight: 264 lbs 11/18/2015 Blood Pressure 1: 138/72 Code: 8480-6 BMI: 41.0 Code: 71816-7 Heart Rate 1: 85 bpm Height: 5'7" SpO2: 93% Weight: 262 lbs 09/30/2015 Blood Pressure 1: 128/76 Code: 8480-6 BMI: 41.2 Code: 59082-5 Heart Rate 1: 70 bpm Height: 5'7" SpO2: 93% Weight: 263 lbs 09/09/2015 Blood Pressure 1: 138/80 Code: 8480-6 BMI: 40.3 Code: 37516-6 Heart Rate 1: 84 bpm Height: 5'7" SpO2: 95% Weight: 257 lbs 08/28/2015 Blood Pressure 1: 122/72 Code: 8480-6 BMI: 39.6 Code: 61594-4 Heart Rate 1: 75 bpm Height: 5'7" SpO2: 96% Weight: 253 lbs 07/09/2015 Blood Pressure 1: 140/78 Code: 8480-6 Blood Pressure 1: 135/78 Code: 8480-6 BMI: 39.5 Code: 95627-2 Heart Rate 1: 62 bpm Height: 5'7" SpO2: 95% Weight: 252 lbs 03/06/2015 Blood Pressure 1: 142/88 Code: 8480-6 BMI: 39.3 Code: 76535-5 Heart Rate 1: 65 bpm Height: 5'7" [...] 09/16/2016 None low back pain Quality ac [facility] 09/16/2016 None low back pain Onset and [...] Encounters Encounter Performer Loca tion Codes Date ([id number]) [id number] EST. P ATIENT, LEVEL III Diagnosis: Dysuria[ICD10: R30.0] Diagnosis: Essential (primary) hypertension[ICD10: I10] Diagnosis: Major depressive disorder, recurrent, moderate[ICD10: F33.1] Alis Spring MD, [facility] CPT-4: 89994 11/15/2018 ([id number]) [id number] EST. P ATIENT, LEVEL IV Diagnosis: Eructation[ICD10: R14.2] Diagnosis: Nausea[ICD10: R11.0] Diagnosis: Chest pain, unspecified[ICD10: R07.9] Diagnosis: Diarrhea, unspecified[ICD10: R19.7] Alis Spring MD, [facility] CPT-4: 33754 10/25/2018 ([id number]) [id number] EST. P ATIENT, LEVEL IV Diagnosis: Essential (primary) hypertension[ICD10: I10] Diagnosis: Low back pain[ICD10: M54.5] Diagnosis: Major depressive disorder, recurrent, moderate[ICD10: F33.1] Alis Spring MD, [facility] CPT-4: 71433 10/13/2018 ([id number]) [id number] EST. P ATIENT, LEVEL IV Diagnosis: Essential (primary) hypertension[ICD10: I10] Diagnosis: Dysuria[ICD10: R30.0] Diagnosis: Low back pain[ICD10: M54.5] Alis Spring MD, [facility] CPT- 4: 35212 09/15/2018 ([id number]) [id number] EST. P ATIENT, LEVEL III Diagnosis: Essential (primary) hypertension[ICD10: I10] Diagnosis: Low back pain[ICD10: M54.5] Alis Spring MD, [facility] CPT- 4: 98194 08/15/2018 ([id number]) [id number] EST. P ATIENT, LEVEL III Diagnosis: Essential (primary) hypertension[ICD10: I10] Diagnosis: Cough[ICD10: R05] Diagnosis: Low back pain[ICD10: M54.5] Alis Spring MD, [facility] CPT- 4: 73640 08/01/2018 ([id number]) [id number] EST. P ATIENT, LEVEL IV Diagnosis: Encounter for immunization[ICD10: Z23] Diagnosis: Essential (primary) hypertension[ICD10: I10] Diagnosis: Chronic atrial fibrillation[ICD10: I48.2] Diagnosis: Major depressive disorder, recurrent, mild[ICD10: F33.0] Scarlett Spring MD, C CPT-4: 34469 04/20/2018 ([id number]) [id number] EST. P ATIENT, LEVEL IV Diagnosis: Essential (primary) hypertension[ICD10: I10] Diagnosis: Obstructive sleep apnea (adult) (pediatric)[ICD10: G47.33] Diagnosis: Chronic atrial fibrillation[ICD10: I48.2] Scarlett Spring MD, C CPT-4: 68475 12/16/2017 ([id number]) 04357 EST. P ATIENT, LEVEL IV Diagnosis: Essential (primary) hypertension[ICD10: I10] Diagnosis: Chronic atrial fibrillation[ICD10: I48.2] Scarlett Spring MD, C CPT-4: 64679 08/23/2017 ([id number]) 85027 EST. P ATIENT, LEVEL IV Diagnosis: Paroxysmal atrial fibrillation[ICD10: I48.0] Diagnosis: Essential (primary) hypertension[ICD10: I10] Scarlett Spring MD, C CPT-4: 37759 02/02/2017 67499 EST. PATIENT, LEVEL III Diagnosis: Acute laryngopharyngitis[ICD10: J06.0] Diagnosis: Cough[ICD10: R05] Diagnosis: Pleurodynia[ICD10: R07.81] Diagnosis: Other dorsalgia[ICD10: M54.89] Kassandra Spring MD, [facility] CPT-4: 23463 11/26/2016 ([id number]) 43461 EST. P ATIENT, LEVEL IV Diagnosis: Essential (primary) hypertension[ICD10: I10] Diagnosis: Pain in left knee[ICD10: M25.562] Diagnosis: Low back pain[ICD10: M54.5] Diagnosis: Major depressive disorder, recurrent, moderate[ICD10: F33.1] Scarlett Spring MD, [facility] CPT-4: 62230 10/07/2016 ([id number]) 10047 EST. P ATIENT, LEVEL IV Diagnosis: Essential (primary) hypertension[ICD10: I10] Diagnosis: Rash and other nonspecific skin eruption[ICD10: R21] Diagnosis: Major depressive disorder, recurrent, mild[ICD10: F33.0] Scarlett Spring MD, [facility] CPT-4: 19850 09/16/2016 12972 EST. PATIENT, LEVEL IV Diagnosis: Pain in left lower leg[ICD10: M79.662] Diagnosis: Pain in left knee[ICD10: M25.562] Kassandra Spring MD, [facility] CPT-4: 52641 09/07/2016 ([id number]) 87077 EST. P ATIENT, LEVEL IV Diagnosis: Encounter for immunization[ICD10: Z23] Diagnosis: Essential (primary) hypertension[ICD10: I10] Diagnosis: Mixed hyperlipidemia[ICD10: E78.2] Scarlett Spring MD, [facility] CPT- 4: 53561 04/08/2016 ([id number]) 23925 EST. P ATIENT, LEVEL III Diagnosis: Essential (primary) hypertension[ICD10: I10] Diagnosis: Shortness of breath[ICD10: R06.02] Scarlett Spring MD, [facility] CPT- 4: 71395 03/05/2016 ([id number]) 35258 EST. P ATIENT, LEVEL III Diagnosis: Chronic obstructive pulmonary disease, unspecified[ICD10: J44.9] Scarlett Spring MD, [facility] CPT-4: 17117 12/04/2015 ([id number]) 46106 EST. P ATIENT, LEVEL IV Diagnosis: Essential (primary) hypertension[ICD10: I10] Diagnosis: Allergic rhinitis due to pollen[ICD10: J30.1] Scarlett Spring MD, C CPT-4: 85808 11/18/2015 ([id number]) 77711 EST. P ATIENT, LEVEL IV Diagnosis: Localized edema[ICD10: R60.0] Diagnosis: Dysuria[ICD10: R30.0] Diagnosis: Essential (primary) hypertension[ICD10: I10] Diagnosis: Nausea[ICD10: R11.0] Alis Spring MD, [facility] CPT-4: 77633 09/30/2015 ([id number]) 64538 EST. P ATIENT, LEVEL II Diagnosis: Methicillin susceptible Staphylococcus aureus infection as the cause of diseases classified elsewhere[ICD10: B95.61] Diagnosis: Methicillin susceptible Staphylococcus aureus infection, unspecified site[ICD10: A49.01] Alis Spring MD, [facility] CPT-4: 20491 09/09/2015 ([id number]) 47081 EST. P ATIENT, LEVEL III Diagnosis: Dermatophytosis, unspecified[ICD10: B35.9] Diagnosis: Rash and other nonspecific skin eruption[ICD10: R21] Scarlett Spring MD, [facility] CPT-4: 85106 08/28/2015 ([id number]) 23720 EST. P ATIENT, LEVEL IV Diagnosis: Essential (primary) hypertension[ICD10: I10] Diagnosis: Gastro-esophageal reflux disease without esophagitis[ICD10: K21.9] Diagnosis: Other dorsalgia[ICD10: M54.89] Scarlett Spring MD, [facility] CPT-4: 35693 07/09/2015 ([id number]) OFFICE VISI T, [facility] - LEVEL 4 Diagnosis: ESSENTIAL HYPERTENSION[ICD9: 401.9] Diagnosis: Osteoporosis[ICD9: 733.00] Diagnosis: Back pain[ICD9: 724.5] Diagnosis: Insomnia[ICD9: 780.52] Diagnosis: ESOPHAGEAL REFLUX[ICD9: 530.81] Scarlett Spring MD, [facility] CPT-4: 75746 03/06/2015 Plan of Care Planned Activity Notes [...] in ER 10/25/2018 Appointment: Alis Muhammad WPtel: [address] [place], [place] [phone] (15 min) Moderate 10/25/2018 Patient Education: Patient [...] current treatment 10/13/2018 Appointment: Alis Muhammad WPtel: [phone] (15 min) Moderate 10/13/2018 Patient [...] Dysuria-check Ua 09/15/2018 Appointment: Alis Muhammad WPtel: [phone] (30 min) Complex 09/15/2018 Patient [...] [phone] (30 min) Complex 08/15/2018 Patient Education: Patient Medication Summary Completed 08/15/2018 Patient Education: Back Pain Completed 08/15/2018 Visit Plan: HTN-onofre induced cough-s top lisinopril -start losartan -monitor blood pressure and follow up in 2 weeks Low back pain-xray lumbar spine and refer for PT 08/01/2018 Appointment: Alis Muhammad [phone] (15 min) Moderate 08/01/2018 Patient Education: Patient Medication Summary Completed 08/01/2018 Patient Education: Back Pain Completed 08/01/2018 Care Plan: X-RAY EXAM L-S SPINE 2/3 VWS LOINC : 11036-8 Pending 08/01/2018 Visit Plan: Hypertension - well [...] 04/20/2018 Appointment: [phone] (15 min) Moderate 04/20/2018 Patient Education: [...] surrogate. 02/09/2018 Appointment: Kassandra Argueta WPtel: [phone] [phone] [place] [address] - Annual Wellness Visit 02/09/2018 Patient Education: [...] Scarlett Spring WPtel: [facility] (15 min) Moderate 12/16/2017 Patient Education: [...] becoming uncontrolled. 08/23/2017 Appointment: Scarlett Spring [facility]Ptel[facility] [phone] [facility] (15 min) Moderate 08/23/2017 Patient Education: [...] cardiology 02/03/2017 Appointment: Kassandra Argueta [facility]Ptel[phone] [facility] [facility] - Annual Wellness Visit 02/03/2017 Patient [...] home. 02/02/2017 Appointment: Scarlett Spring [facility]Ptel[facility] [phone] [facility] (15 min) Moderate 02/02/2017 Patient Education: [...] Argu[facility]Ptel[facility] [phone] [facility] (30 min) Complex 11/26/2016 Patient Education: Patient [...] symptoms. 10/07/2016 Appointment: Scarlett Spring [facility]Ptel[facility] [phone] [facility] (15 min) Moderate 10/07/2016 Patient Education: Patient Medication Summary Completed 10/07/2016 Patient Education: Obesity Completed 10/07/2016 Patient Education: Hypertension Completed 10/07/2016 Care Plan: VASCULAR STUDY Pending 10/04/2016 Care Plan: X-RAY EXAM OF KNEE 3 [facility] : 16193-4 Pending 10/04/2016 Visit Plan: Hypertension - well con trolled - continue with current medications, continue with no added salt diet. Pt has been encouraged to exercise daily. The pt has been advised to call the office if there are any acute concerns about change in blood pressure readings at home. Rash - continue current treatment. Depression - RX for paroxetine 09/16/2016 Appointment: cSarlett Spring WPtel[facility] [phone] [facility] (15 min) Moderate 09/16/2016 Patient Education: [...] improve. 09/07/2016 Appointment: Kassandra Argueta [facility]Ptel[phone] [facility] (10 min) Simple 09/07/2016 Patient Education: Patient [...] mammogram order 04/08/2016 Appointment: Scarlett Spring [facility]Ptel[facility] [phone] [facility] [place] (15 min) Moderate 04/08/2016 Patient [...] days. 03/05/2016 Appointment: Scarlett Spring [facility]Ptel[facility] [phone] [facility] (15 min) Moderate 03/05/2016 Patient Education: Patient Medication Summary Completed 03/05/2016 Visit Plan: COPD - chronic problem for this patient. We have reviewed chronic treatment strategy, symptom control, and plans for acute exacerbations. No changes today to the current treatment plan as the patient is stable, monitor for acute changes. anoro samples given to the patient 12/04/2015 Appointment: Scarlett Spring [facility]Ptel[facility] [phone] [facility] (15 min) Moderate 12/04/2015 Patient Education: [...] 11/18/2015 Appointment: Scarlett Spring WPtel: [address] [place] (15 min) Moderate 11/18/2015 Patient Education: Patient Medication Summary Completed 11/18/2015 Patient Education: Obesity Completed 11/18/2015 Patient Education: Hypertension Completed 11/18/2015 Appointment: Scarlett Spring WPtel: [facility] [address] (15 min) Moderate 11/07/2015 Visit Plan: [...] Visit Plan: MSSA of groin and under ngryxxa-urfqtkryc-rygcej bactrim and call if rash does not [...] report. 08/28/2015 Appointment: Scarlett Spring WPtel: [address] [place] [address] (15 min) Moderate 08/28/2015 Patient Education: Patient [...] improving. 07/09/2015 Appointment: Scarlett Spring WPtel[facility] [phone] [facility] [place] (15 min) Moderate 07/09/2015 Patient [...] not improving. 03/06/2015 Appointment: Scarlett Spring [facility]Ptel[facility] [phone] [facility] [place] ([place] New Patient 03/06/2015 Patient [...] will find out if anyone comes to [place] check UA start probiotic daily . Hypertension [...]
--- OUTSIDE RECORDS SUMMARY | 2020-01-23 14:32 | XMS REPORT | CCD ---
Author Author Jeannine Spring Organization Scarlett Spring MD, [facility] Address [address] [place] [address] Phone Care Team Providers Care Onsite Health Coach Name Role Phone PP Unavailable CCM Unavailable Summary Purpose Interface Exchange Insurance Providers Payer name Policy type / Coverage type Covered constitution party ID Effective Begin Date Effective End Date WPS Medicare Part B Medicare Part B [id number] Unknown [place] [employer] Medicare Part B [id number] Unkn own Family history Mother Diagnosis Age At Onset Hypertension Unknown Heart Attack Unknown Brother Diagnosis Age At Onset Heart disease Unknown Runs in the family Diagnosis Age At Onset Heart disease Unknown Daughter Diagnosis Age At Onset Heart Attack Unknown Hyperlipidemia Unknown Hypertension Unknown Social History Social History Element Codes Description Effective Dates Number of children Unknown 2 daughter lives in [place], son - does not have contact 09/16/[address]: 9448133 Quit over 10 years ago 1990 - previously smoked 2ppd x 25 years. 11/18/2015 Marital status Unknown W idowed in 201003/06/2015 Employment Unknown Retir ed was a [employer] 03/06/2015 Allergies, Adverse Reactions, Alerts Substance Reaction Codes Entered Date Inactivated Date Status * NO KNOWN FOOD MYRNA RGIES Unknown 03/06/2015 No Inactive Date Active Iodine RxNorm: 5933 03/06/2015 No Inactive Date Active Penicillin Unknown 03/06/2015 No In active Date Active Past Medical History Illness Codes Condition Status Onset Date Resolved Date Chest pain, unspecified ICD-9: 786.50 ICD-10: R07.9 [...] ICD-9: 296.32 ICD-10: F33.1 Active 10/07/2016 Unknown Dysuria ICD-9: 788.1 ICD-10: R30.0 Active [...] Condition Codes Effectiv e Dates Condition Status Chest pain, unspecified ICD-9: 786.50 ICD-10: R07.9 10/25/2018 Active Diarrhea, unspecified ICD-9: 787.91 ICD-10: R19.7 10/25/2018 Active Eructation ICD-9: 787.3 ICD-10: R14.2 10/25/2018 Active Nausea ICD-9: 787.02 ICD-10: R11.0 09/29/2015 Active Essential (primary) hypertension ICD-9: 401.1 ICD-10: I10 12/16/2017 Active Low back pain ICD-9: 724.2 ICD-10: M54.5 10/07/2016 Active Major depressive dis order, recurrent, moderate ICD-9: 296.32 ICD-10: F33.1 10/07/2016 Active Dysuria ICD-9: 788.1 ICD-10: R30.0 09/29/2015 [...] simethicone 125 mg c hewable tablet RxNorm: 341584 1 Tablet(s) PO qid pr n 10/25/2018 No Stop Date Active promethazine 25 mg t ablet RxNorm: 753040 1 Tablet(s) PO Q6 PRN 10/25/2018 No Stop Date Active paroxetine 40 mg tablet RxNorm: 0687213 1 Tablet(s) PO daily 10/13/2018 04/10/2019 Active valsartan 160 mg tablet RxNorm: 574813 1 Tablet(s) PO daily 10/13/2018 04/10/2019 Active Ambien 10 mg tablet RxNorm: 869906 TAKE ONE TABLET BY MOUTH AT BEDTIME N EEDED 09/23/2018 11/21/2018 Ac tive terazosin 5 mg capsule RxNorm: 417089 TAKE ONE CAPSULE BY MOUTH DAILY 09/23/2018 02/19/2019 Ac tive trazodone 50 mg tablet RxNorm: 751221 TAKE ONE TABLET BY MOUTH DAILY 09/23/2018 03/21/2019 Ac tive losartan 50 mg tablet RxNorm: 240242 1 Tablet(s) PO daily 09/15/2018 10/12/2018 Inactive omeprazole 20 mg cap marina,delayed release RxNorm: 950034 TAKE ONE CAPSULE BY M OUTH EVERY NIGHT AT BEDTIME 09/12/2018 03/10/2019 Active Keflex 500 mg capsule RxNorm: 379340 1 Capsule(s) PO TID 08/18/2018 08/17/2018 Inactive Keflex 500 mg capsule RxNorm: 962611 1 Capsule(s) PO TID 08/18/2018 08/24/2018 Inactive take probiotic while on abx paroxetine 20 mg tablet RxNorm: 7696876 TAKE ONE TABLET BY MOUTH DAILY 08/12/2018 10/12/2018 In active losartan 25 mg tablet RxNorm: 381358 1 Tablet(s) PO daily 08/01/2018 09/14/2018 Inactive losartan 25 mg tablet RxNorm: 478751 1 Tablet(s) PO daily 08/01/2018 10/12/2018 Inactive trazodone 50 mg tablet RxNorm: 299913 TAKE ONE TABLET BY MOUTH DAILY 07/25/2018 09/22/2018 In active Ambien 10 mg tablet RxNorm: 360038 Tablet(s) TAKE ONE TABLET BY MOUTH AT BE DTIME 06/24/2018 09/23/2018 Inactive trazodone 50 mg tablet RxNorm: 028756 TAKE ONE TABLET BY MOUTH DAILY 04/25/2018 07/23/2018 In active Ambien 10 mg tablet RxNorm: 144347 Tablet(s) TAKE ONE TABLET BY MOUTH AT BE DTIME 03/23/2018 06/19/2018 Inactive terazosin 5 mg capsule RxNorm: 323661 TAKE ONE CAPSULE BY MOUTH DAILY 03/14/2018 09/09/2018 In active Ambien 10 mg tablet RxNorm: 156910 Tablet(s) TAKE ONE TABLET BY MOUTH AT BE DTIME 01/18/2018 09/14/2018 Inactive trazodone 50 mg tablet RxNorm: 792284 TAKE ONE TABLET BY MOUTH ONCE DAILY 01/10/2018 03/22/2018 In active trazodone 50 mg tablet RxNorm: 278838 Tablet(s) TAKE ONE TABLET BY MOUTH ONCE DAILY 01/10/2018 04/24/2018 Inactive Ambien 10 mg tablet RxNorm: 159009 Tablet(s) TAKE ONE TABLET BY MOUTH AT BE DTIME 10/22/2017 01/17/2018 Inactive trazodone 50 mg tablet RxNorm: 846558 TAKE ONE TABLET BY MOUTH ONCE DAILY 10/18/2017 01/09/2018 In active omeprazole 20 mg cap marina,delayed release RxNorm: 846916 TAKE ONE CAPSULE BY M OUTH ONCE DAILY AT BEDTIME 08/27/2017 09/11/2018 Inactive trazodone 50 mg tablet RxNorm: 924145 TAKE ONE TABLET BY MOUTH ONCE DAILY 08/18/2017 10/17/2017 In active Ambien 10 mg tablet RxNorm: 615492 Tablet(s) TAKE ONE TABLET BY MOUTH AT BE DTIME 08/18/2017 03/22/2018 Inactive paroxetine 20 mg tablet RxNorm: 6824586 TAKE ONE TABLET BY MOUTH ONCE DAILY 07/27/2017 08/11/2018 In active Ambien 10 mg tablet RxNorm: 418322 Tablet(s) TAKE ONE TABLET BY MOUTH AT BE DTIME 06/23/2017 03/22/2018 Inactive omeprazole 20 mg cap marina,delayed release RxNorm: 288333 TAKE ONE CAPSULE BY M OUTH ONCE DAILY AT BEDTIME 04/23/2017 08/20/2017 Inactive trazodone 50 mg tablet RxNorm: 041033 TAKE ONE TABLET BY MOUTH ONCE DAILY 04/13/2017 08/10/2017 In active terazosin 5 mg capsule RxNorm: 466526 Capsule(s) TAKE ONE CAPSULE BY MOUTH TATA 04/08/2017 03/03/2018 In active Ambien 10 mg tablet RxNorm: 355575 Tablet(s) TAKE ONE TABLET BY MOUTH AT BE DTIME 02/17/2017 03/22/2018 Inactive Tylenol-Codeine #3 3 00 mg-30 mg tablet RxNorm: 075823 1 Tablet(s) PO QID as needed 02/02/2017 03/03/2017 In active metoprolol succinate ER 50 mg tablet,extended release 24 hr RxNorm: 244508 TAKE ONE TABLET BY MOUTH ONCE DAILY 12/23/2016 02/02/2017 Inactive Zithromax Z-Ted 250 mg tablet RxNorm: 900281 1 Tablet(s) PO UD 11/26/2016 02/16/2017 Inactive trazodone 50 mg tablet RxNorm: 898784 TAKE ONE TABLET BY MOUTH ONCE DAILY 11/12/2016 03/11/2017 In active Ambien 10 mg tablet RxNorm: 890377 Tablet(s) TAKE ONE TABLET BY MOUTH AT BE [facility] 10/22/2016 02/15/2017 Inactive paroxetine 20 mg tablet RxNorm: 2737343 1 Tablet(s) PO daily TAKE ONE TABLET BY MOUTH DAILY 09/16/2016 06/12/2017 Inactive meloxicam 7.5 mg tablet RxNorm: 086962 1 Tablet(s) PO daily 09/16/2016 11/14/2016 Inactive Protonix 40 mg table t,delayed release RxNorm: 483795 1 Tablet(s) PO daily 09/16/2016 08/22/2017 In active sucralfate 1 gram ta blet RxNorm: 801858 1 Tablet(s) PO TID 09/16/2016 08/22/2017 Inactive Ambien 10 mg tablet RxNorm: 255209 Tablet(s) TAKE ONE TABLET BY MOUTH AT [facility] 08/24/2016 03/22/2018 Inactive trazodone 50 mg tablet RxNorm: 679756 Tablet(s) TAKE ONE TABLET BY MOUTH DAILY 07/29/2016 11/11/2016 In active Ambien 10 mg tablet RxNorm: 504605 TAKE ONE TABLET BY MOUTH AT BEDTIME 06/23/2016 03/22/2018 In active Ambien 10 mg tablet RxNorm: 107432 Tablet(s) TAKE ONE TABLET BY MOUTH EVERY NIGHT AT BEDTIME 06/22/2016 06/23/2016 Inactive Lasix 40 mg tablet RxNorm: 240781 1 Tablet(s) PO daily as needed for swell ing 04/03/2016 09/15/2016 In active potassium chloride E R 20 mEq tablet,extended release RxNorm: 206623 1 Tablet(s) PO daily for swelling take with lasix as needed 04/03/2016 09/15/2016 Inactive Ambien 10 mg tablet RxNorm: 842736 Tablet(s) TAKE ONE TABLET BY MOUTH EVERY NIGHT AT BEDTIME 04/03/2016 03/22/2018 Inactive omeprazole 20 mg cap marina,delayed release RxNorm: 398323 TAKE ONE CAPSULE BY M OUTH EVERY NIGHT AT BEDTIME 03/31/2016 09/15/2016 Inactive paroxetine 20 mg tablet RxNorm: 7381605 TAKE ONE TABLET BY MOUTH DAILY 03/31/2016 09/15/2016 In active trazodone 50 mg tablet RxNorm: 588155 TAKE ONE TABLET BY MOUTH DAILY 03/20/2016 07/28/2016 In active terazosin 5 mg capsule RxNorm: 588451 TAKE ONE CAPSULE BY MOUTH DAILY 03/06/2016 10/06/2016 In active Ambien 10 mg tablet RxNorm: 187365 Tablet(s) TAKE ONE TABLET BY MOUTH EVERY NIGHT AT BEDTIME 01/17/2016 04/02/2016 Inactive loratadine 10 mg tablet RxNorm: 777711 1 Tablet(s) PO daily 01/15/2016 09/15/2016 Inactive mupirocin 2 % topica l ointment RxNorm: 229640 1 Application TOP TID 11/18/2015 12/01/2015 Inactive metoprolol succinate ER 50 mg tablet,extended release 24 hr RxNorm: 948838 1 Tablet(s) PO daily 11/18/2015 11/11/2016 Inactive loratadine 10 mg tablet RxNorm: 033293 1 Tablet(s) PO daily 11/18/2015 01/14/2016 Inactive Lasix 40 mg tablet RxNorm: 016016 1 Tablet(s) PO daily as needed for swell ing 10/30/2015 11/28/2015 In active potassium chloride E R 20 mEq tablet,extended release RxNorm: 328234 1 Tablet(s) PO daily for swelling take with lasix as needed 10/30/2015 11/28/2015 Inactive Tylenol-Codeine #3 3 00 mg-30 mg tablet RxNorm: 138622 1 Tablet(s) PO QID as needed 10/25/2015 02/01/2017 In active Ambien 10 mg tablet RxNorm: 738716 Tablet(s) TAKE ONE TABLET BY MOUTH EVERY NIGHT AT BEDTIME 10/18/2015 03/22/2018 Inactive Diflucan 150 mg tablet RxNorm: 806156 1 Tablet(s) PO daily 10/01/2015 12/03/2015 Inactive Lasix 20 mg tablet RxNorm: 814902 1 Tablet(s) PO PRN fror swelling 09/27/2015 10/29/2015 In active potassium chloride E R 10 mEq capsule,extended release RxNorm: 867965 1 Capsule(s) PO PRN for swelling take with lasix 09/27/2015 10/29/2015 Inactive Bactrim DS 800 mg-16 0 mg tablet RxNorm: 447187 1 Tablet(s) PO BID 09/02/2015 09/11/2015 Inactive Bactrim DS 800 mg-16 0 mg tablet RxNorm: 765132 1 Tablet(s) PO BID 09/02/2015 09/01/2015 Inactive nystatin 100,000 uni t/gram topical cream RxNorm: 267885 1 Gram(s) TOP TID 08/28/2015 09/26/2015 In active Diflucan 150 mg tablet RxNorm: 274251 1 Tablet(s) PO daily 08/28/2015 09/06/2015 Inactive betamethasone diprop ionate 0.05 % topical ointment RxNorm: 347194 1 Application TOP TID to affected area 08/02/2015 02/01/2017 Inactive nystatin 100,000 uni t/gram topical powder RxNorm: 404733 1 Gram(s) TOP QID 07/09/2015 08/01/2015 In active Ambien 10 mg tablet RxNorm: 050955 1 Tablet(s) PO QHS 06/19/2015 06/18/2015 Inactive Ambien 10 mg tablet RxNorm: 384298 TAKE ONE TABLET BY MOUTH EVERY NIGHT AT BEDTIME 06/19/2015 09/16/2015 Inactive Vitamin D2 50,000 un it capsule RxNorm: 816269 1 Capsule(s) PO QW 03/07/2015 03/06/2015 Inactive Vitamin D2 50,000 un it capsule RxNorm: 957428 1 Capsule(s) PO QW 03/07/2015 05/05/2015 Inactive terazosin 5 mg capsule RxNorm: 708266 1 Capsule(s) PO daily 03/06/2015 02/28/2016 Inactive [SAVINGS FOR NON-COVERED DRUGS -- BIN:00 3585, N: [id number], Group: XXXXX, ID# [id number], Questions: . THIS IS NOT INSURANCE.] trazodone 50 mg tablet RxNorm: 612425 1 Tablet(s) PO daily 03/06/2015 02/28/2016 Inactive paroxetine 20 mg tablet RxNorm: 1067038 1 Tablet(s) PO daily 03/06/2015 02/28/2016 Inactive Tylenol-Codeine #3 3 00 mg-30 mg tablet RxNorm: 612698 1 Tablet(s) PO QID as needed 03/06/2015 07/02/2015 In active amlodipine 10 mg tablet RxNorm: 491873 1 Tablet(s) PO daily 03/06/2015 11/17/2015 Inactive metoprolol succinate ER 25 mg tablet,extended release 24 hr RxNorm: 617299 1 Tablet(s) PO daily 03/06/2015 11/17/2015 Inactive omeprazole 20 mg cap marina,delayed release RxNorm: 637392 1 Capsule(s) PO QHS 03/06/2015 02/28/2016 In active omeprazole 20 mg cap marina,delayed release RxNorm: 599078 1 Capsule(s) PO QHS 01/31/2015 01/30/2015 In active omeprazole 20 mg cap marina,delayed release RxNorm: 236133 1 Capsule(s) PO QHS 01/31/2015 01/30/2015 In active omeprazole 20 mg cap marina,delayed release RxNorm: 692864 1 Capsule(s) PO QHS 01/31/2015 03/05/2015 In active Ambien 10 mg tablet RxNorm: 184038 1 Tablet(s) PO QHS 12/25/2014 04/21/2015 Inactive paroxetine 20 mg tablet RxNorm: 329693 1 Tablet(s) PO daily 12/25/2014 12/24/2014 Inactive Ambien 10 mg tablet RxNorm: 684160 1 Tablet(s) PO QHS 12/25/2014 12/24/2014 Inactive paroxetine 20 mg tablet RxNorm: 937523 1 Tablet(s) PO daily 12/25/2014 03/05/2015 Inactive terazosin 5 mg capsule RxNorm: 757426 1 Capsule(s) PO daily 11/23/2014 03/05/2015 Inactive [SAVINGS FOR NON-COVERED DRUGS -- BIN:00 3585, PCN: [id number], Group: XXXXX, ID# [id number], Questions: . THIS IS NOT INSURANCE.] terazosin 5 mg capsule RxNorm: 845640 1 Capsule(s) PO daily 11/23/2014 11/22/2014 Inactive Lasix 20 mg tablet RxNorm: 960121 1 Tablet(s) PO daily No Start Date Active K-Dur 10 mEq tablet, extended release RxNorm: 782142 1 Tablet(s) PO daily No Start Date Active hydrochlorothiazide 25 mg tablet RxNorm: 848084 1 Tablet(s) PO daily No Start Date Active Vitamin D3 2,000 uni t tablet RxNorm: 249544 1 Tablet(s) PO daily No Start Date Active amiodarone 200 mg ta blet RxNorm: 958036 1 Tablet(s) PO BID No Start Date Active Zetia 10 mg tablet RxNorm: 283168 1 Tablet(s) PO daily No Start Date Active Lipitor 80 mg tablet RxNorm: 837616 1/2 Tablet(s) PO daily No Start Date Active Coumadin 4 mg tablet RxNorm: 370649 1 Tablet(s) PO daily No Start Date Active metoprolol succinate ER 25 mg tablet,extended release 24 hr RxNorm: 516899 1 Tablet(s) PO daily No Start Date 03/05/2015 Inactive Entresto 49 mg-51 mg tablet RxNorm: 7551015 1 Tablet(s) PO BID No Start Date 04/19/2018 Inactive sotalol 80 mg tablet RxNorm: 7035710 1 Tablet(s) PO BID No Start Date 04/19/2018 Inactive betamethasone diprop ionate 0.05 % topical ointment RxNorm: 310878 1 Application TOP TID to affected area No Start Date 08/01/2015 Inactive trazodone 50 mg tablet RxNorm: 482654 1 Tablet(s) PO daily No Start Date 03/05/2015 Inactive potassium chloride E R 10 mEq capsule,extended release RxNorm: 306801 1 Capsule(s) PO PRN for swelling take with lasix No Start Date 09/26/2015 Inactive Eliquis 5 mg tablet RxNorm: 3390898 1 Tablet(s) PO BID No Start Date 09/14/2018 Inactive amlodipine 10 mg tablet RxNorm: 766175 1 Tablet(s) PO daily No Start Date 03/05/2015 Inactive isosorbide mononitra te ER 30 mg tablet,extended release 24 hr RxNorm: 865655 1 Tablet(s) PO daily No Start Date 08/22/2017 Inactive aspirin 81 mg tablet ,delayed release RxNorm: 551563 1 Tablet(s) PO daily No Start Date 02/02/2017 Inactive Lasix 20 mg tablet RxNorm: 156375 1 Tablet(s) PO PRN fror swelling No Start Date 09/26/2015 Inactive lisinopril 5 mg tablet RxNorm: 363974 1 Tablet(s) PO daily No Start Date 07/31/2018 Inactive Crestor 40 mg tablet RxNorm: 197011 1 Tablet(s) PO daily No Start Date 09/15/2016 Inactive metoprolol succinate ER 100 mg tablet,extended release 24 hr RxNorm: 345575 1 Tablet(s) PO daily No Start Date 12/15/2017 Inactive Medication Administered No Medication Administered data Immunizations Vaccine Codes Date Status Influenza CVX: 141 04/20 completed Influenza CVX: 141 04/08 completed Pneumococcal (Adult) CVX: 133 04/08/2016 completed Assessments Condition Codes Effectiv e Dates Diarrhea, unspecified ICD-10: R19.7 ICD-9: 787.91 10/25/2018 Eructation ICD-10: R14.2 ICD-9: 787.3 10/25/2018 Nausea ICD-10: R11.0 ICD-9: 787.02 10/25/2018 Chest pain, unspecified ICD-10: R07. 9 ICD-9: 786.50 10/25/2018 Major depressive disorder, recurrent, moderate ICD-10: F33.1 ICD-9: 296.32 10/13/2018 Essential (primary) hypertension ICD -10: I10 ICD-9: 401.1 10/13/2018 Low back pain ICD-10: M54.5 ICD-9: 724.2 10/13/2018 Dysuria ICD-10: R30.0 ICD-9: 788.1 09/15/2018 Essential (primary) hypertension ICD -10: I10 ICD-9: [...] Visit Reason For Visit Effective Dates Notes diarrhea 10/25/2018 hypertension 10/13/2018 hypertension 09/15/2018 blood [...] Item Item Code Result Date Culture Urine [id number] URI NE CULTURE SEE NOTES 08/22/2018 Culture Urine [id number] Con tinued Results 08/22/2018 Urine Culture Ucult Comp lete >100,000 col/ml aerobic grow th sent to ref lab 08/19/2018 Comp Metabolic Giv461 NA 140 mEq/L 08/01/2018 Comp Metabolic Pcn440 K 4.2 mEq/L 08/01/2018 Comp Metabolic Hmv137 CL 102 mEq/L 08/01/2018 Comp Metabolic Pue912 CO2 27.0 mEq/L 08/01/2018 Comp Metabolic Jyg016 AN ION GAP 15 08/01/2018 Comp Metabolic Nsj834 GL UCOSE 107 mg/dL 08/01/2018 Comp Metabolic Qwx072 Cr eat 1.0 mg/dL 08/01/2018 Comp Metabolic Isd234 eG FR 58 ml/min/1.73m2 08/01 Comp Metabolic Cov246 BUN 10 mg/dL 08/01/2018 Comp Metabolic Qzt016 B/ C Ratio 10.0 Ratio 08/01/2018 Comp Metabolic Dgu848 CA LCIUM 8.9 mg/dL 08/01/2018 Comp Metabolic Bmo608 AL K PHOS 68 U/L 08/01/2018 Comp Metabolic Bvy209 T(SGOT) 18 U/L 08/01/2018 Comp Metabolic But382 AL T(SGPT) 14 U/L 08/01/2018 Comp Metabolic Qlg542 BI LI T 0.5 mg/dL 08/01/2018 Comp Metabolic Nyf734 AL BUMIN 4.0 g/dL 08/01/2018 Comp Metabolic Ofp953 TP RO 6.3 g/dL 08/01/2018 Comp Metabolic Jxq731 GL OB 2.3 g/dL 08/01/2018 Comp Metabolic Gvk412 A/ G Ratio 1.7 Ratio 08/01/2018 Comp Metabolic Fcs130 Os mo 279 mOsmo 08/01/2018 Tsh Ord6 [...] 27.3 pg 08/01/2018 Cbc With Differential Ord2 Ellis% 9.8 % 08/01/2018 Cbc With Differential Ord2 [...] 0.79 K/ul 08/01/2018 Cbc With Differential Ord2 Ellis ABS# 0.4 K/ul 08/01/2018 Cbc With Differential Ord2 Eos ABS# 0.1 K/ul 08/01/2018 Cbc With Differential Ord2 Baso ABS# 0.0 K/ul 08/01/2018 Lipid Ord30 CHOL 234 mg/dL 08/01/2018 Lipid Ord30 HDL 69.0 mg/dl 08/01/2018 Lipid Ord30 TRIG 57 mg/dL 08/01/2018 Lipid Ord30 LDL 154 mg/dL 08/01/2018 Lipid Ord30 C/HDL 3.4 Ratio 08/01/2018 Comp Metabolic Jma251 NA 137 mEq/L 09/30/2015 Comp Metabolic Dnp415 K 4.5 mEq/L 09/30/2015 Comp Metabolic Pmc089 CL 102 mEq/L 09/30/2015 Comp Metabolic Tbb290 CO2 26.0 mEq/L 09/30/2015 Comp Metabolic Tzn897 AN ION GAP 14 09/30/2015 Comp Metabolic Psp706 GL UCOSE 89 mg/dL 09/30/2015 Comp Metabolic Heb304 Cr eat 0.8 mg/dL 09/30/2015 Comp Metabolic Wor322 eG FR 79 ml/min/1.73m2 09/29 Comp Metabolic Qnn804 BUN 14 mg/dL 09/30/2015 Comp Metabolic Wvx777 B/ C Ratio 18.2 Ratio 09/30/2015 Comp Metabolic Acf528 CA LCIUM 8.9 mg/dL 09/30/2015 Comp Metabolic Ijh928 AL K PHOS 65 U/L 09/30/2015 Comp Metabolic Cft205 T(SGOT) 26 U/L 09/30/2015 Comp Metabolic Eaw155 AL T(SGPT) 18 U/L 09/30/2015 Comp Metabolic Dnt421 BI LI T 0.6 mg/dL 09/30/2015 Comp Metabolic Qid218 AL BUMIN 3.8 g/dL 09/30/2015 Comp Metabolic Hnb080 TP RO 6.6 g/dL 09/30/2015 Comp Metabolic Lbo451 GL OB 2.8 g/dL 09/30/2015 Comp Metabolic Wkx648 A/ G Ratio 1.4 Ratio 09/30/2015 Comp Metabolic Rai478 Os mo 274 mOsmo 09/30/2015 Cbc With [...] 27.7 pg 09/30/2015 Cbc With Differential Ord2 Ellis% 10.7 % 09/30/2015 Cbc With Differential Ord2 [...] 1.10 K/ul 09/30/2015 Cbc With Differential Ord2 Ellis ABS# 0.6 K/ul 09/30/2015 Cbc With Differential Ord2 Eos ABS# 0.2 K/ul 09/30/2015 Cbc With Differential Ord2 Baso ABS# 0.0 K/ul 09/30/2015 Cbc With Differential Ord2 New Analyzer Notice Please note new ref ranges s tarting 08-07-2015 due to implemntation of new five part differential hematolgy analyzer. 09/30/2015 Tsh Ord6 hTSH II 1.05 uIU/mL 03/06/2015 Comp Metabolic Vxh607 NA 137 mEq/L 03/06/2015 Comp Metabolic Jbm049 K 4.3 mEq/L 03/06/2015 Comp Metabolic Qqx408 CL 104 mEq/L 03/06/2015 Comp Metabolic Aam444 CO2 28.0 mEq/L 03/06/2015 Comp Metabolic Gjb387 AN ION GAP 9 03/06/2015 Comp Metabolic Sew562 GL UCOSE 93 mg/dL 03/06/2015 Comp Metabolic Ikf124 Cr eat 0.8 mg/dL 03/06/2015 Comp Metabolic Zta456 eG FR 81 ml/min/1.73m2 03/06 Comp Metabolic Oos952 BUN 12 mg/dL 03/06/2015 Comp Metabolic Ies783 B/ C Ratio 16.0 Ratio 03/06/2015 Comp Metabolic Aik335 CA LCIUM 8.9 mg/dL 03/06/2015 Comp Metabolic Fov930 AL K PHOS 56 U/L 03/06/2015 Comp Metabolic Tlh082 T(SGOT) 22 U/L 03/06/2015 Comp Metabolic Coj941 AL T(SGPT) 15 U/L 03/06/2015 Comp Metabolic Tib007 BI LI T 0.4 mg/dL 03/06/2015 Comp Metabolic Nlz251 AL BUMIN 4.0 g/dL 03/06/2015 Comp Metabolic Bpq153 TP RO 6.5 g/dL 03/06/2015 Comp Metabolic Nlj622 GL OB 2.5 g/dL 03/06/2015 Comp Metabolic Kjw215 A/ G Ratio 1.6 Ratio 03/06/2015 Comp Metabolic Wzm318 Os mo 273 mOsmo 03/06/2015 Vitamin D 25 Oh Wtv9382 VITAMIN D, 25 HYDROXY 28.14 ng/mL 03/06/2015 [...] System Result Effective Dates Constitutional recent illness 10/25/2018 Constitutional No chills [...] dentition 10/13/2018 None Full Exam - General 1995 [...] Date URINALYSIS NONAUTO W /O SCOPE CPT-4: 64313 08/18/2018 ADMIN INFLUENZA VIRU S VAC CPT-4: G0008 04/20/2018 FLU VACC PRSV FREE I NC ANTIG Formatting Model/CDA Sections, Assigned to/Amparo Mims CPT-4: 74384Pfxbpyw 04/20/2018 PPPS, SUBSEQ VISIT CPT- 4: G0439 02/09/2018 PPPS, SUBSEQ VISIT CPT- 4: G0439 02/03/2017 ADMIN INFLUENZA VIRU S VAC CPT-4: G0008 04/08/2016 ADMIN PNEUMOCOCCAL V ACCINE SNOMED CT: 76255875 CPT-4: G0009 04/08/2016 PNEUMOCOCCAL VACC [address]: 17187817 CPT-4: 72833 04/08/2016 FLU VACC PRSV FREE I NC ANTIG CPT-4: 64820 04/08/2016 Vital Signs Date Vital 10/25/2018 Blood Pressure 1: 128/80 Code: 8480-6 BMI: 42.0 Code: 19706-4 Heart Rate 1: 93 bpm Height: 5'7" SpO2: 95% Weight: 268 lbs 10/13/2018 Blood Pressure 1: 162/76 Code: 8480-6 BMI: 42.0 Code: 08167-8 Heart Rate 1: 71 bpm Height: 5'7" SpO2: 96% Weight: 268 lbs 09/15/2018 Blood Pressure 1: 154/86 Code: 8480-6 BMI: 42.9 Code: 01487-0 Heart Rate 1: 88 bpm Height: 5'7" SpO2: 94% Weight: 274 lbs 08/15/2018 Blood Pressure 1: 140/90 Code: 8480-6 BMI: 40.7 Code: 76733-8 Heart Rate 1: 70 bpm Height: 5'7" SpO2: 93% Weight: 260 lbs 08/01/2018 Blood Pressure 1: 130/70 Code: 8480-6 BMI: 40.7 Code: 78344-8 Heart Rate 1: 80 bpm Height: 5'7" SpO2: 93% Weight: 260 lbs 04/20/2018 Blood Pressure 1: 128/68 Code: 8480-6 BMI: 41.7 Code: 86667-5 Heart Rate 1: 85 bpm Height: 5'7" SpO2: 94% Weight: 266 lbs 02/09/2018 Blood Pressure 1: 118/70 Code: 8480-6 BMI: 42.1 Code: 14086-6 Heart Rate 1: 58 bpm Height: 5'7" SpO2: 94% Weight: 269 lbs 12/16/2017 Blood Pressure 1: 132/86 Code: 8480-6 BMI: 42.7 Code: 85207-9 Heart Rate 1: 63 bpm Height: 5'7" SpO2: 94% Weight: 272 lbs 14 o z 08/23/2017 Blood Pressure 1: 150/82 Code: 8480-6 BMI: 42.0 Code: 93934-5 Heart Rate 1: 66 bpm Height: 5'7" SpO2: 96% Weight: 268 lbs 02/03/2017 Blood Pressure 1: 138/72 Code: 8480-6 BMI: 41.2 Code: 07098-9 Heart Rate 1: 96 bpm Height: 5'7" SpO2: 97% Weight: 263 lbs 02/02/2017 Blood Pressure 1: 140/90 Code: 8480-6 BMI: 41.2 Code: 72413-8 Heart Rate 1: 103 bpm Height: 5'7" SpO2: 94% Weight: 263 lbs 11/26/2016 Blood Pressure 1: 152/88 Code: 8480-6 BMI: 41.0 Code: 37189-9 Heart Rate 1: 71 bpm Height: 5'7" SpO2: 94% Temperature: 37.7 (C ) / 99.8 (F) Weight: 262 lbs 10/07/2016 Blood Pressure 1: 148/82 Code: 8480-6 BMI: 41.7 Code: 54938-6 Heart Rate 1: 58 bpm Height: 5'7" SpO2: 96% Weight: 266 lbs 09/16/2016 Blood Pressure 1: 122/70 Code: 8480-6 BMI: 42.0 Code: 98814-8 Heart Rate 1: 65 bpm Height: 5'7" SpO2: 96% Weight: 268 lbs 09/07/2016 Blood Pressure 1: 154/60 Code: 8480-6 BMI: 42.3 Code: 61613-7 Heart Rate 1: 101 bpm Height: 5'7" SpO2: 97% Weight: 270 lbs 04/08/2016 Blood Pressure 1: 128/70 Code: 8480-6 BMI: 41.4 Code: 89198-0 Heart Rate 1: 62 bpm Height: 5'7" SpO2: 95% Weight: 264 lbs 8 oz 03/05/2016 Blood Pressure 1: 144/78 Code: 8480-6 Blood Pressure 1: 139/72 Code: 8480-6 BMI: 41.9 Code: 64517-9 Heart Rate 1: 71 bpm Height: 5'7" SpO2: 93% Weight: 267 lbs 8 oz 12/04/2015 Blood Pressure 1: 132/70 Code: 8480-6 BMI: 41.3 Code: 65397-7 Heart Rate 1: 56 bpm Height: 5'7" SpO2: 96% Weight: 264 lbs 11/18/2015 Blood Pressure 1: 138/72 Code: 8480-6 BMI: 41.0 Code: 27446-4 Heart Rate 1: 85 bpm Height: 5'7" SpO2: 93% Weight: 262 lbs 09/30/2015 Blood Pressure 1: 128/76 Code: 8480-6 BMI: 41.2 Code: 18582-6 Heart Rate 1: 70 bpm Height: 5'7" SpO2: 93% Weight: 263 lbs 09/09/2015 Blood Pressure 1: 138/80 Code: 8480-6 BMI: 40.3 Code: 32237-8 Heart Rate 1: 84 bpm Height: 5'7" SpO2: 95% Weight: 257 lbs 08/28/2015 Blood Pressure 1: 122/72 Code: 8480-6 BMI: 39.6 Code: 66060-2 Heart Rate 1: 75 bpm Height: 5'7" SpO2: 96% Weight: 253 lbs 07/09/2015 Blood Pressure 1: 140/78 Code: 8480-6 Blood Pressure 1: 135/78 Code: 8480-6 BMI: 39.5 Code: 50204-9 Heart Rate 1: 62 bpm Height: 5'7" SpO2: 95% Weight: 252 lbs 03/06/2015 Blood Pressure 1: 142/88 Code: 8480-6 BMI: 39.3 Code: 33801-5 Heart Rate 1: 65 bpm Height: 5'7" SpO2: 95% Weight: 251 lbs Functional Status No Functional Status data History of Present Illness Symptom Name Status Resu lt Effective Date Notes Quality intermittent 10/25/2018 None Quality loose 10/25/2018 None Onset and Resolution s udden in onset 10/25/2018 None Onset of Symptom _ amber rs ago 10/25/2018 None Location in the the medical center area 10/25/2018 None Quality burning 10/25/2018 None [...] Encounters Encounter Performer Loca tion Codes Date ([id number]) [id number] EST. P ATIENT, LEVEL IV Diagnosis: Eructation[ICD10: R14.2] Diagnosis: Nausea[ICD10: R11.0] Diagnosis: Chest pain, unspecified[ICD10: R07.9] Diagnosis: Diarrhea, unspecified[ICD10: R19.7] [facility] CPT-4: 87604 10/25/2018 ([id number]) 02975 EST. P ATIENT, LEVEL IV Diagnosis: Essential (primary) hypertension[ICD10: I10] Diagnosis: Low back pain[ICD10: M54.5] Diagnosis: Major depressive disorder, recurrent, moderate[ICD10: F33.1] [facility] CPT-4: 37392 10/13/2018 ([id number]) 92660 EST. P ATIENT, LEVEL IV Diagnosis: Essential (primary) hypertension[ICD10: I10] Diagnosis: Dysuria[ICD10: R30.0] Diagnosis: Low back pain[ICD10: M54.5] Alis Spring MD, [facility] CPT- 4: 22487 09/15/2018 ([id number]) 42200 EST. P ATIENT, LEVEL III Diagnosis: Essential (primary) hypertension[ICD10: I10] Diagnosis: Low back pain[ICD10: M54.5] Alis Spring MD, [facility] CPT- 4: 07964 08/15/2018 ([id number]) 58997 EST. P ATIENT, LEVEL III Diagnosis: Essential (primary) hypertension[ICD10: I10] Diagnosis: Cough[ICD10: R05] Diagnosis: Low back pain[ICD10: M54.5] Alis Spring MD, [facility] CPT- 4: 87971 08/01/2018 ([id number]) 98702 EST. P ATIENT, LEVEL IV Diagnosis: Encounter for immunization[ICD10: Z23] Diagnosis: Essential (primary) hypertension[ICD10: I10] Diagnosis: Chronic atrial fibrillation[ICD10: I48.2] Diagnosis: Major depressive disorder, recurrent, mild[ICD10: F33.0] Scarlett [facility] CPT-4: 38122 04/20/2018 ([id number]) 20174 EST. P ATIENT, LEVEL IV Diagnosis: Essential (primary) hypertension[ICD10: I10] Diagnosis: Obstructive sleep apnea (adult) (pediatric)[ICD10: G47.33] Diagnosis: Chronic atrial fibrillation[ICD10: I48.2] [facility] CPT-4: 04838 12/16/2017 ([id number]) 38918 EST. P ATIENT, LEVEL IV Diagnosis: Essential (primary) hypertension[ICD10: I10] Diagnosis: Chronic atrial fibrillation[ICD10: I48.2] [facility] CPT-4: 53569 08/23/2017 ([id number]) 92877 EST. P ATIENT, LEVEL IV Diagnosis: Paroxysmal atrial fibrillation[ICD10: I48.0] Diagnosis: Essential (primary) hypertension[ICD10: I10] [facility]lett [facility] CPT-4: 92271 02/02/2017 61059 EST. PATIENT, LEVEL III Diagnosis: Acute laryngopharyngitis[ICD10: J06.0] Diagnosis: Cough[ICD10: R05] Diagnosis: Pleurodynia[ICD10: R07.81] Diagnosis: Other dorsalgia[ICD10: M54.89] Kassandra Spring MD, [facility] CPT-4: 44584 11/26/2016 ([id number]) 77155 EST. P ATIENT, LEVEL IV Diagnosis: Essential (primary) hypertension[ICD10: I10] Diagnosis: Pain in left knee[ICD10: M25.562] Diagnosis: Low back pain[ICD10: M54.5] Diagnosis: Major depressive disorder, recurrent, moderate[ICD10: F33.1] Scarlett Spring MD, [facility] CPT-4: 84568 10/07/2016 ([id number]) 05553 EST. P ATIENT, LEVEL IV Diagnosis: Essential (primary) hypertension[ICD10: I10] Diagnosis: Rash and other nonspecific skin eruption[ICD10: R21] Diagnosis: Major depressive disorder, recurrent, mild[ICD10: F33.0] Scarlett Spring MD, [facility] CPT-4: 67247 09/16/2016 73168 EST. PATIENT, LEVEL IV Diagnosis: Pain in left lower leg[ICD10: M79.662] Diagnosis: Pain in left knee[ICD10: M25.562] Kassandra Spring MD, [facility] CPT-4: 29738 09/07/2016 ([id number]) 96130 EST. P ATIENT, LEVEL IV Diagnosis: Encounter for immunization[ICD10: Z23] Diagnosis: Essential (primary) hypertension[ICD10: I10] Diagnosis: Mixed hyperlipidemia[ICD10: E78.2] Scarlett Spring MD, [facility] CPT- 4: 02176 04/08/2016 ([id number]) 94224 EST. P ATIENT, LEVEL III Diagnosis: Essential (primary) hypertension[ICD10: I10] Diagnosis: Shortness of breath[ICD10: R06.02] Scarlett Spring MD, [facility] CPT- 4: 89869 03/05/2016 ([id number]) 18711 EST. P ATIENT, LEVEL III Diagnosis: Chronic obstructive pulmonary disease, unspecified[ICD10: J44.9] Scarlett Spring MD, [facility] CPT-4: 21039 12/04/2015 ([id number]) 32354 EST. P ATIENT, LEVEL IV Diagnosis: Essential (primary) hypertension[ICD10: I10] Diagnosis: Allergic rhinitis due to pollen[ICD10: J30.1] Scarlett Spring MD, [facility] CPT-4: 91240 11/18/2015 ([id number]) 28181 EST. P ATIENT, LEVEL IV Diagnosis: Localized edema[ICD10: R60.0] Diagnosis: Dysuria[ICD10: R30.0] Diagnosis: Essential (primary) hypertension[ICD10: I10] Diagnosis: Nausea[ICD10: R11.0] Alis Spring MD, [facility] CPT-4: 90291 09/30/2015 ([id number]) 86152 EST. P ATIENT, LEVEL II Diagnosis: Methicillin susceptible Staphylococcus aureus infection as the cause of diseases classified elsewhere[ICD10: B95.61] Diagnosis: Methicillin susceptible Staphylococcus aureus infection, unspecified site[ICD10: A49.01] Alis Spring MD, [facility] CPT-4: 20218 09/09/2015 ([id number]) 90038 EST. P ATIENT, LEVEL III Diagnosis: Dermatophytosis, unspecified[ICD10: B35.9] Diagnosis: Rash and other nonspecific skin eruption[ICD10: R21] Scarlett Spring MD, [facility] CPT-4: 22834 08/28/2015 ([id number]) 30148 EST. P ATIENT, LEVEL IV Diagnosis: Essential (primary) hypertension[ICD10: I10] Diagnosis: Gastro-esophageal reflux disease without esophagitis[ICD10: K21.9] Diagnosis: Other dorsalgia[ICD10: M54.89] Scarlett Spring MD, [facility] CPT-4: 16941 07/09/2015 ([id number]) [facility] - LEVEL 4 Diagnosis: ESSENTIAL HYPERTENSION[ICD9: 401.9] Diagnosis: Osteoporosis[ICD9: 733.00] Diagnosis: Back pain[ICD9: 724.5] Diagnosis: Insomnia[ICD9: 780.52] Diagnosis: ESOPHAGEAL REFLUX[ICD9: 530.81] Scarlett Spring MD, [facility] CPT-4: 25985 03/06/2015 Plan of Care Planned Activity Notes C odes Status Date Visit Plan: Gastroenteritis - discu ssed need [...] ago and was evaluated in ER 10/25/2018 Patient Education: Patient Medication Summary Completed [...] current treatment 10/13/2018 Appointment: Alis Muhammad WPtel: [address] [place], [place] [phone] (15 min) Moderate 10/13/2018 Patient Education: Patient [...] Dysuria-check Ua 09/15/2018 Appointment: Alis Muhammad WPtel: [phone] (30 min) Complex 09/15/2018 Patient Education: Patient [...] not improve 08/15/2018 Appointment: Alis Muhammad WPtel: [address] [place], [place] [phone] (30 min) Complex 08/15/2018 Patient Education: Patient Medication Summary Completed 08/15/2018 Patient Education: Back Pain Completed 08/15/2018 Visit Plan: HTN-onofre induced cough-s top lisinopril -start losartan -monitor blood pressure and follow up in 2 weeks Low back pain-xray lumbar spine and refer for PT 08/01/2018 Appointment: Alis Muhammad WPtel: [phone] (15 min) Moderate 08/01/2018 Patient Education: Patient Medication Summary Completed 08/01/2018 Patient Education: Back Pain Completed 08/01/2018 Care Plan: X-RAY EXAM L-S SPINE 2/3 VWS LOINC : 79901-8 Pending 08/01/2018 Visit Plan: Hypertension - well rick galeano - continue with current medications, continue with [...] today. 04/20/2018 Appointment: Scarlett Spring WPtel: [address] [place], [place] [phone] (15 min) Moderate 04/20/2018 Patient Education: Patient [...] surrogate. 02/09/2018 Appointment: Kassandra Argueta WPtel: [phone] [phone] [facility] - Annual Wellness Visit 02/09/2018 Patient [...] night. 12/16/2017 Appointment: Scarlett Spring WPtel: [phone] [phone] (15 min) Moderate 12/16/2017 Patient Education: [...] uncontrolled. 08/23/2017 Appointment: Scarlett Spring WPtel: [phone] [facility] (15 min) Moderate 08/23/2017 Patient Education: [...] to cardiology 02/03/2017 Appointment: Kassandra Argueta WPtel: [phone] [place] [address] - Annual Wellness Visit 02/03/2017 Patient Education: [...] at home. 02/02/2017 Appointment: Scarlett Spring WPtel: [facility] (15 min) Moderate 02/02/2017 Patient Education: [...] improve. 11/26/2016 [phone] ([facility] min) Complex 11/26/2016 Patient Education: [...] symptoms. 10/07/2016 Appointment: Scarlett Spring WPtel: [phone] [facility] (15 min) Moderate 10/07/2016 Patient Education: Patient Medication Summary Completed 10/07/2016 Patient Education: Obesity Completed 10/07/2016 Patient Education: Hypertension Completed 10/07/2016 Care Plan: VASCULAR STUDY Pending 10/04/2016 Care Plan: X-RAY EXAM OF KNEE 3 [facility] : 20549-4 Pending 10/04/2016 Visit Plan: Hypertension - well [...] for paroxetine 09/16/2016 [phone] [place] (15 min) Moderate 09/16/2016 [...] improve. 09/07/2016 Appointment: [phone] [place] (10 min) Simple 09/07/2016 [...] order 04/08/2016 App[facility]ment[phone] [facility] [place] (15 min) Moderate 04/08/2016 Patient Education: [...] 03/05/2016 App[facility]ment[facility] Scar[facility] Spring [facility]Ptel[phone] [facility] [place] (15 min) Moderate 03/05/2016 [...] patient 12/04/2015 App[facility]ment[facility] Spring [phone] [facility] (15 min) Moderate 12/04/2015 Patient [...] spray. 11/18/2015 App[facility]ment[facility] Spring [facility]el[facility] [phone] [facility] [place] (15 min) Moderate 11/18/2015 Patient Education: Patient Medication Summary Completed 11/18/2015 Patient Education: Obesity Completed 11/18/2015 Patient Education: Hypertension Completed 11/18/2015 Appointment: Scar[facility] Spring [facility]Ptel[phone] [facility] [place] (15 min) Moderate 11/07/2015 [...] Visit Plan: MSSA of groin and under mefzdum-ajlvnpblp-pxmxfg bactrim and call if rash does not [...] report. 08/28/2015 Appointment: Scarlett Spring WPtel: [address] [place], [place] [phone] (15 min) Moderate 08/28/2015 Patient Education: Patient [...] improving. 07/09/2015 Appointment: Scarlett Spring WPtel: [phone] [facility] (15 min) Moderate 07/09/2015 Patient Education: [...] improving. 03/06/2015 Appointment: [facility] Spring [facility]Ptel[phone] [facility] [place] ([place] New Patient 03/06/2015 [...] will find out if anyone comes to [place] check UA start probiotic daily . Hypertension [...] pain -refer to pain management Dysuria-check Ua d/c losartan start valsartan 160mg daily increase [...] DOPA paperwork for health care surrogate. Manish jaimeday - Defer to cardiology . Hypertension - [...]
--- OUTSIDE RECORDS SUMMARY | 2020-01-23 14:33 | XMS REPORT | CCD ---
Author Author Jeannine Spring Organization Scarlett Spring MD, [facility] Address [address] [place] [address] Phone Care Team Providers Care Community Recreation Coordinator Name Role Phone PP Unavailable CCM Unavailable Summary Purpose Interface Exchange Insurance Providers Payer name Policy type / Coverage type Covered libertarian ID Effective Begin Date Effective End Date WPS Medicare Part B Medicare Part B [id number] Unknown [place] [employer] Medicare Part B [id number] Unkn own Family history Mother Diagnosis Age At Onset Hypertension Unknown Heart Attack Unknown Brother Diagnosis Age At Onset Heart disease Unknown Runs in the family Diagnosis Age At Onset Heart disease Unknown Daughter Diagnosis Age At Onset Heart Attack Unknown Hyperlipidemia Unknown Hypertension Unknown Social History Social History Element Codes Description Effective Dates Number of children Unknown 2 daughter lives in [place], son - does not have contact 09/16/[address]: 0293284 Quit over 10 years ago 1990 - previously smoked 2ppd x 25 years. 11/18/2015 Marital status Unknown [place]owed in 201003/06/2015 Employment Unknown Retir ed was a [employer] 03/06/2015 Allergies, Adverse Reactions, Alerts Substance Reaction [...] simethicone 125 mg c hewable tablet RxNorm: 650528 1 Tablet(s) PO qid pr n 10/25/2018 No Stop Date Active promethazine 25 mg t ablet RxNorm: 662957 1 Tablet(s) PO Q6 PRN 10/25/2018 No Stop Date Active paroxetine 40 mg tablet RxNorm: 7878098 1 Tablet(s) PO daily 10/13/2018 04/10/2019 Active valsartan 160 mg tablet RxNorm: 362621 1 Tablet(s) PO daily 10/13/2018 04/10/2019 Active Ambien 10 mg tablet RxNorm: 117352 TAKE ONE TABLET BY MOUTH AT BEDTIME N EEDED 09/23/2018 11/21/2018 Ac tive terazosin 5 mg capsule RxNorm: 615653 TAKE ONE CAPSULE BY MOUTH DAILY 09/23/2018 02/19/2019 Ac tive trazodone 50 mg tablet RxNorm: 654263 TAKE ONE TABLET BY MOUTH DAILY 09/23/2018 03/21/2019 Ac tive losartan 50 mg tablet RxNorm: 823140 1 Tablet(s) PO daily 09/15/2018 10/12/2018 Inactive omeprazole 20 mg cap marina,delayed release RxNorm: 046783 TAKE ONE CAPSULE BY M OUTH EVERY NIGHT AT BEDTIME 09/12/2018 03/10/2019 Active Keflex 500 mg capsule RxNorm: 876309 1 Capsule(s) PO TID 08/18/2018 08/17/2018 Inactive Keflex 500 mg capsule RxNorm: 642329 1 Capsule(s) PO TID 08/18/2018 08/24/2018 Inactive take probiotic while on abx paroxetine 20 mg tablet RxNorm: 2575388 TAKE ONE TABLET BY MOUTH DAILY 08/12/2018 10/12/2018 In active losartan 25 mg tablet RxNorm: 807355 1 Tablet(s) PO daily 08/01/2018 09/14/2018 Inactive losartan 25 mg tablet RxNorm: 849672 1 Tablet(s) PO daily 08/01/2018 10/12/2018 Inactive trazodone 50 mg tablet RxNorm: 267110 TAKE ONE TABLET BY MOUTH DAILY 07/25/2018 09/22/2018 In active Ambien 10 mg tablet RxNorm: 101006 Tablet(s) TAKE ONE TABLET BY MOUTH AT BE DTIME 06/24/2018 09/23/2018 Inactive trazodone 50 mg tablet RxNorm: 853472 TAKE ONE TABLET BY MOUTH DAILY 04/25/2018 07/23/2018 In active Ambien 10 mg tablet RxNorm: 141618 Tablet(s) TAKE ONE TABLET BY MOUTH AT BE DTIME 03/23/2018 06/19/2018 Inactive terazosin 5 mg capsule RxNorm: 342219 TAKE ONE CAPSULE BY MOUTH DAILY 03/14/2018 09/09/2018 In active Ambien 10 mg tablet RxNorm: 465495 Tablet(s) TAKE ONE TABLET BY MOUTH AT BE DTIME 01/18/2018 09/14/2018 Inactive trazodone 50 mg tablet RxNorm: 764825 TAKE ONE TABLET BY MOUTH ONCE DAILY 01/10/2018 03/22/2018 In active trazodone 50 mg tablet RxNorm: 453699 Tablet(s) TAKE ONE TABLET BY MOUTH ONCE DAILY 01/10/2018 04/24/2018 Inactive Ambien 10 mg tablet RxNorm: 321508 Tablet(s) TAKE ONE TABLET BY MOUTH AT BE DTIME 10/22/2017 01/17/2018 Inactive trazodone 50 mg tablet RxNorm: 814409 TAKE ONE TABLET BY MOUTH ONCE DAILY 10/18/2017 01/09/2018 In active omeprazole 20 mg cap marina,delayed release RxNorm: 236439 TAKE ONE CAPSULE BY M OUTH ONCE DAILY AT BEDTIME 08/27/2017 09/11/2018 Inactive trazodone 50 mg tablet RxNorm: 359852 TAKE ONE TABLET BY MOUTH ONCE DAILY 08/18/2017 10/17/2017 In active Ambien 10 mg tablet RxNorm: 821399 Tablet(s) TAKE ONE TABLET BY MOUTH AT BE DTIME 08/18/2017 03/22/2018 Inactive paroxetine 20 mg tablet RxNorm: 1765944 TAKE ONE TABLET BY MOUTH ONCE DAILY 07/27/2017 08/11/2018 In active Ambien 10 mg tablet RxNorm: 000653 Tablet(s) TAKE ONE TABLET BY MOUTH AT BE DTIME 06/23/2017 03/22/2018 Inactive omeprazole 20 mg cap marina,delayed release RxNorm: 507829 TAKE ONE CAPSULE BY M OUTH ONCE DAILY AT BEDTIME 04/23/2017 08/20/2017 Inactive trazodone 50 mg tablet RxNorm: 119641 TAKE ONE TABLET BY MOUTH ONCE DAILY 04/13/2017 08/10/2017 In active terazosin 5 mg capsule RxNorm: 963618 Capsule(s) TAKE ONE CAPSULE BY MOUTH TATA 04/08/2017 03/03/2018 In active Ambien 10 mg tablet RxNorm: 540564 Tablet(s) TAKE ONE TABLET BY MOUTH AT BE DTIME 02/17/2017 03/22/2018 Inactive Tylenol-Codeine #3 3 00 mg-30 mg tablet RxNorm: 095010 1 Tablet(s) PO QID as needed 02/02/2017 03/03/2017 In active metoprolol succinate ER 50 mg tablet,extended release 24 hr RxNorm: 468714 TAKE ONE TABLET BY MOUTH ONCE DAILY 12/23/2016 02/02/2017 Inactive Zithromax Z-Ted 250 mg tablet RxNorm: 996556 1 Tablet(s) PO UD 11/26/2016 02/16/2017 Inactive trazodone 50 mg tablet RxNorm: 441970 TAKE ONE TABLET BY MOUTH ONCE DAILY 11/12/2016 03/11/2017 In active Ambien 10 mg tablet RxNorm: 018558 Tablet(s) TAKE ONE TABLET BY MOUTH AT BE [facility] 10/22/2016 02/15/2017 Inactive paroxetine 20 mg tablet RxNorm: 5180190 1 Tablet(s) PO daily TAKE ONE TABLET BY MOUTH DAILY 09/16/2016 06/12/2017 Inactive meloxicam 7.5 mg tablet RxNorm: 308693 1 Tablet(s) PO daily 09/16/2016 11/14/2016 Inactive Protonix 40 mg table t,delayed release RxNorm: 763683 1 Tablet(s) PO daily 09/16/2016 08/22/2017 In active sucralfate 1 gram ta blet RxNorm: 553788 1 Tablet(s) PO TID 09/16/2016 08/22/2017 Inactive Ambien 10 mg tablet RxNorm: 064825 Tablet(s) TAKE ONE TABLET BY MOUTH AT [facility] 08/24/2016 03/22/2018 Inactive trazodone 50 mg tablet RxNorm: 939555 Tablet(s) TAKE ONE TABLET BY MOUTH DAILY 07/29/2016 11/11/2016 In active Ambien 10 mg tablet RxNorm: 589271 TAKE ONE TABLET BY MOUTH AT BEDTIME 06/23/2016 03/22/2018 In active Ambien 10 mg tablet RxNorm: 042568 Tablet(s) TAKE ONE TABLET BY MOUTH EVERY NIGHT AT BEDTIME 06/22/2016 06/23/2016 Inactive Lasix 40 mg tablet RxNorm: 780801 1 Tablet(s) PO daily as needed for swell ing 04/03/2016 09/15/2016 In active potassium chloride E R 20 mEq tablet,extended release RxNorm: 818998 1 Tablet(s) PO daily for swelling take with lasix as needed 04/03/2016 09/15/2016 Inactive Ambien 10 mg tablet RxNorm: 138199 Tablet(s) TAKE ONE TABLET BY MOUTH EVERY NIGHT AT BEDTIME 04/03/2016 03/22/2018 Inactive omeprazole 20 mg cap marina,delayed release RxNorm: 087142 TAKE ONE CAPSULE BY M OUTH EVERY NIGHT AT BEDTIME 03/31/2016 09/15/2016 Inactive paroxetine 20 mg tablet RxNorm: 4807613 TAKE ONE TABLET BY MOUTH DAILY 03/31/2016 09/15/2016 In active trazodone 50 mg tablet RxNorm: 898804 TAKE ONE TABLET BY MOUTH DAILY 03/20/2016 07/28/2016 In active terazosin 5 mg capsule RxNorm: 784188 TAKE ONE CAPSULE BY MOUTH DAILY 03/06/2016 10/06/2016 In active Ambien 10 mg tablet RxNorm: 737566 Tablet(s) TAKE ONE TABLET BY MOUTH EVERY NIGHT AT BEDTIME 01/17/2016 04/02/2016 Inactive loratadine 10 mg tablet RxNorm: 440250 1 Tablet(s) PO daily 01/15/2016 09/15/2016 Inactive mupirocin 2 % topica l ointment RxNorm: 411931 1 Application TOP TID 11/18/2015 12/01/2015 Inactive metoprolol succinate ER 50 mg tablet,extended release 24 hr RxNorm: 678793 1 Tablet(s) PO daily 11/18/2015 11/11/2016 Inactive loratadine 10 mg tablet RxNorm: 062848 1 Tablet(s) PO daily 11/18/2015 01/14/2016 Inactive Lasix 40 mg tablet RxNorm: 042198 1 Tablet(s) PO daily as needed for swell ing 10/30/2015 11/28/2015 In active potassium chloride E R 20 mEq tablet,extended release RxNorm: 482201 1 Tablet(s) PO daily for swelling take with lasix as needed 10/30/2015 11/28/2015 Inactive Tylenol-Codeine #3 3 00 mg-30 mg tablet RxNorm: 778120 1 Tablet(s) PO QID as needed 10/25/2015 02/01/2017 In active Ambien 10 mg tablet RxNorm: 264639 Tablet(s) TAKE ONE TABLET BY MOUTH EVERY NIGHT AT BEDTIME 10/18/2015 03/22/2018 Inactive Diflucan 150 mg tablet RxNorm: 796431 1 Tablet(s) PO daily 10/01/2015 12/03/2015 Inactive Lasix 20 mg tablet RxNorm: 914124 1 Tablet(s) PO PRN fror swelling 09/27/2015 10/29/2015 In active potassium chloride E R 10 mEq capsule,extended release RxNorm: 567741 1 Capsule(s) PO PRN for swelling take with lasix 09/27/2015 10/29/2015 Inactive Bactrim DS 800 mg-16 0 mg tablet RxNorm: 581281 1 Tablet(s) PO BID 09/02/2015 09/11/2015 Inactive Bactrim DS 800 mg-16 0 mg tablet RxNorm: 924697 1 Tablet(s) PO BID 09/02/2015 09/01/2015 Inactive nystatin 100,000 uni t/gram topical cream RxNorm: 124050 1 Gram(s) TOP TID 08/28/2015 09/26/2015 In active Diflucan 150 mg tablet RxNorm: 292658 1 Tablet(s) PO daily 08/28/2015 09/06/2015 Inactive betamethasone diprop ionate 0.05 % topical ointment RxNorm: 573675 1 Application TOP TID to affected area 08/02/2015 02/01/2017 Inactive nystatin 100,000 uni t/gram topical powder RxNorm: 214541 1 Gram(s) TOP QID 07/09/2015 08/01/2015 In active Ambien 10 mg tablet RxNorm: 406963 1 Tablet(s) PO QHS 06/19/2015 06/18/2015 Inactive Ambien 10 mg tablet RxNorm: 461025 TAKE ONE TABLET BY MOUTH EVERY NIGHT AT BEDTIME 06/19/2015 09/16/2015 Inactive Vitamin D2 50,000 un it capsule RxNorm: 092373 1 Capsule(s) PO QW 03/07/2015 03/06/2015 Inactive Vitamin D2 50,000 un it capsule RxNorm: 726738 1 Capsule(s) PO QW 03/07/2015 05/05/2015 Inactive terazosin 5 mg capsule RxNorm: 679830 1 Capsule(s) PO daily 03/06/2015 02/28/2016 Inactive [SAVINGS FOR NON-COVERED DRUGS -- BIN:00 3585, N: [email or web address], Group: XXXXX, ID# [id number], Questions: . THIS IS NOT INSURANCE.] trazodone 50 mg tablet RxNorm: 899924 1 Tablet(s) PO daily 03/06/2015 02/28/2016 Inactive paroxetine 20 mg tablet RxNorm: 4494413 1 Tablet(s) PO daily 03/06/2015 02/28/2016 Inactive Tylenol-Codeine #3 3 00 mg-30 mg tablet RxNorm: 622988 1 Tablet(s) PO QID as needed 03/06/2015 07/02/2015 In active amlodipine 10 mg tablet RxNorm: 574386 1 Tablet(s) PO daily 03/06/2015 11/17/2015 Inactive metoprolol succinate ER 25 mg tablet,extended release 24 hr RxNorm: 849605 1 Tablet(s) PO daily 03/06/2015 11/17/2015 Inactive omeprazole 20 mg cap marina,delayed release RxNorm: 117398 1 Capsule(s) PO QHS 03/06/2015 02/28/2016 In active omeprazole 20 mg cap marina,delayed release RxNorm: 141729 1 Capsule(s) PO QHS 01/31/2015 01/30/2015 In active omeprazole 20 mg cap marina,delayed release RxNorm: 652007 1 Capsule(s) PO QHS 01/31/2015 01/30/2015 In active omeprazole 20 mg cap marina,delayed release RxNorm: 635032 1 Capsule(s) PO QHS 01/31/2015 03/05/2015 In active Ambien 10 mg tablet RxNorm: 762494 1 Tablet(s) PO QHS 12/25/2014 04/21/2015 Inactive paroxetine 20 mg tablet RxNorm: 138564 1 Tablet(s) PO daily 12/25/2014 12/24/2014 Inactive Ambien 10 mg tablet RxNorm: 554779 1 Tablet(s) PO QHS 12/25/2014 12/24/2014 Inactive paroxetine 20 mg tablet RxNorm: 818020 1 Tablet(s) PO daily 12/25/2014 03/05/2015 Inactive terazosin 5 mg capsule RxNorm: 966662 1 Capsule(s) PO daily 11/23/2014 03/05/2015 Inactive [SAVINGS FOR NON-COVERED DRUGS -- BIN:00 3585, PCN: [id number], Group: XXXXX, ID# [id number], Questions: . THIS IS NOT INSURANCE.] terazosin 5 mg capsule RxNorm: 775616 1 Capsule(s) PO daily 11/23/2014 11/22/2014 Inactive Lasix 20 mg tablet RxNorm: 259082 1 Tablet(s) PO daily No Start Date Active K-Dur 10 mEq tablet, extended release RxNorm: 615346 1 Tablet(s) PO daily No Start Date Active hydrochlorothiazide 25 mg tablet RxNorm: 921735 1 Tablet(s) PO daily No Start Date Active Vitamin D3 2,000 uni t tablet RxNorm: 506134 1 Tablet(s) PO daily No Start Date Active amiodarone 200 mg ta blet RxNorm: 787894 1 Tablet(s) PO BID No Start Date Active Zetia 10 mg tablet RxNorm: 982265 1 Tablet(s) PO daily No Start Date Active Lipitor 80 mg tablet RxNorm: 366441 1/2 Tablet(s) PO daily No Start Date Active Coumadin 4 mg tablet RxNorm: 751014 1 Tablet(s) PO daily No Start Date Active metoprolol succinate ER 25 mg tablet,extended release 24 hr RxNorm: 145456 1 Tablet(s) PO daily No Start Date 03/05/2015 Inactive Entresto 49 mg-51 mg tablet RxNorm: 6812899 1 Tablet(s) PO BID No Start Date 04/19/2018 Inactive sotalol 80 mg tablet RxNorm: 9204325 1 Tablet(s) PO BID No Start Date 04/19/2018 Inactive betamethasone diprop ionate 0.05 % topical ointment RxNorm: 016015 1 Application TOP TID to affected area No Start Date 08/01/2015 Inactive trazodone 50 mg tablet RxNorm: 933489 1 Tablet(s) PO daily No Start Date 03/05/2015 Inactive potassium chloride E R 10 mEq capsule,extended release RxNorm: 603670 1 Capsule(s) PO PRN for swelling take with lasix No Start Date 09/26/2015 Inactive Eliquis 5 mg tablet RxNorm: 9749587 1 Tablet(s) PO BID No Start Date 09/14/2018 Inactive amlodipine 10 mg tablet RxNorm: 507286 1 Tablet(s) PO daily No Start Date 03/05/2015 Inactive isosorbide mononitra te ER 30 mg tablet,extended release 24 hr RxNorm: 681505 1 Tablet(s) PO daily No Start Date 08/22/2017 Inactive aspirin 81 mg tablet ,delayed release RxNorm: 544093 1 Tablet(s) PO daily No Start Date 02/02/2017 Inactive Lasix 20 mg tablet RxNorm: 808435 1 Tablet(s) PO PRN fror swelling No Start Date 09/26/2015 Inactive lisinopril 5 mg tablet RxNorm: 355039 1 Tablet(s) PO daily No Start Date 07/31/2018 Inactive Crestor 40 mg tablet RxNorm: 109155 1 Tablet(s) PO daily No Start Date 09/15/2016 Inactive metoprolol succinate ER 100 mg tablet,extended release 24 hr RxNorm: 967205 1 Tablet(s) PO daily No Start Date [...] Item Item Code Result Date Culture Urine [id number] URI NE CULTURE SEE NOTES 08/22/2018 Culture Urine [id number] Con tinued Results 08/22/2018 Urine Culture Ucult Comp lete >100,000 col/ml aerobic grow th sent to ref lab 08/19/2018 Comp Metabolic Btc158 NA 140 mEq/L 08/01/2018 Comp Metabolic Srj665 K 4.2 mEq/L 08/01/2018 Comp Metabolic Hdi374 CL 102 mEq/L 08/01/2018 Comp Metabolic Sth562 CO2 27.0 mEq/L 08/01/2018 Comp Metabolic Kmy520 AN ION GAP 15 08/01/2018 Comp Metabolic Dej605 GL UCOSE 107 mg/dL 08/01/2018 Comp Metabolic Tir741 Cr eat 1.0 mg/dL 08/01/2018 Comp Metabolic Yst438 eG FR 58 ml/min/1.73m2 08/01 Comp Metabolic Nkd702 BUN 10 mg/dL 08/01/2018 Comp Metabolic Duy628 B/ C Ratio 10.0 Ratio 08/01/2018 Comp Metabolic Vyk155 CA LCIUM 8.9 mg/dL 08/01/2018 Comp Metabolic Jet816 AL K PHOS 68 U/L 08/01/2018 Comp Metabolic Btm390 T(SGOT) 18 U/L 08/01/2018 Comp Metabolic Hng292 AL T(SGPT) 14 U/L 08/01/2018 Comp Metabolic Yll984 BI LI T 0.5 mg/dL 08/01/2018 Comp Metabolic Vkq001 AL BUMIN 4.0 g/dL 08/01/2018 Comp Metabolic Qbx286 TP RO 6.3 g/dL 08/01/2018 Comp Metabolic Epm211 GL OB 2.3 g/dL 08/01/2018 Comp Metabolic Uww364 A/ G Ratio 1.7 Ratio 08/01/2018 Comp Metabolic Brs575 Os mo 279 mOsmo 08/01/2018 Tsh Ord6 [...] 27.3 pg 08/01/2018 Cbc With Differential Ord2 [place]% 9.8 % 08/01/2018 Cbc With Differential Ord2 [...] 0.79 K/ul 08/01/2018 Cbc With Differential Ord2 [place] ABS# 0.4 K/ul 08/01/2018 Cbc With Differential Ord2 Eos ABS# 0.1 K/ul 08/01/2018 Cbc With Differential Ord2 Baso ABS# 0.0 K/ul 08/01/2018 Lipid Ord30 CHOL 234 mg/dL 08/01/2018 Lipid Ord30 HDL 69.0 mg/dl 08/01/2018 Lipid Ord30 TRIG 57 mg/dL 08/01/2018 Lipid Ord30 LDL 154 mg/dL 08/01/2018 Lipid Ord30 C/HDL 3.4 Ratio 08/01/2018 Comp Metabolic Uwj819 NA 137 mEq/L 09/30/2015 Comp Metabolic Hcr034 K 4.5 mEq/L 09/30/2015 Comp Metabolic Jsq298 CL 102 mEq/L 09/30/2015 Comp Metabolic Spd778 CO2 26.0 mEq/L 09/30/2015 Comp Metabolic Gld040 AN ION GAP 14 09/30/2015 Comp Metabolic Nry848 GL UCOSE 89 mg/dL 09/30/2015 Comp Metabolic Zek324 Cr eat 0.8 mg/dL 09/30/2015 Comp Metabolic Ivc297 eG FR 79 ml/min/1.73m2 09/29 Comp Metabolic Ppx977 BUN 14 mg/dL 09/30/2015 Comp Metabolic Dnv912 B/ C Ratio 18.2 Ratio 09/30/2015 Comp Metabolic Dlx725 CA LCIUM 8.9 mg/dL 09/30/2015 Comp Metabolic Eyj147 AL K PHOS 65 U/L 09/30/2015 Comp Metabolic Ygt193 T(SGOT) 26 U/L 09/30/2015 Comp Metabolic Asg268 AL T(SGPT) 18 U/L 09/30/2015 Comp Metabolic Lcl310 BI LI T 0.6 mg/dL 09/30/2015 Comp Metabolic Ehn760 AL BUMIN 3.8 g/dL 09/30/2015 Comp Metabolic Frk107 TP RO 6.6 g/dL 09/30/2015 Comp Metabolic Lsi224 GL OB 2.8 g/dL 09/30/2015 Comp Metabolic Yjq774 A/ G Ratio 1.4 Ratio 09/30/2015 Comp Metabolic Ung407 Os mo 274 mOsmo 09/30/2015 Cbc With [...] 27.7 pg 09/30/2015 Cbc With Differential Ord2 [place]% 10.7 % 09/30/2015 Cbc With Differential Ord2 [...] 1.10 K/ul 09/30/2015 Cbc With Differential Ord2 [place] ABS# 0.6 K/ul 09/30/2015 Cbc With Differential Ord2 Eos ABS# 0.2 K/ul 09/30/2015 Cbc With Differential Ord2 Baso ABS# 0.0 K/ul 09/30/2015 Cbc With Differential Ord2 New Analyzer Notice Please note new ref ranges s tarting 08-07-2015 due to implemntation of new five part differential hematolgy analyzer. 09/30/2015 Tsh Ord6 hTSH II 1.05 uIU/mL 03/06/2015 Comp Metabolic Xrf186 NA 137 mEq/L 03/06/2015 Comp Metabolic Tzd952 K 4.3 mEq/L 03/06/2015 Comp Metabolic Zdc172 CL 104 mEq/L 03/06/2015 Comp Metabolic Lke002 CO2 28.0 mEq/L 03/06/2015 Comp Metabolic Jxo558 AN ION GAP 9 03/06/2015 Comp Metabolic Rqe307 GL UCOSE 93 mg/dL 03/06/2015 Comp Metabolic Dvf686 Cr eat 0.8 mg/dL 03/06/2015 Comp Metabolic Yng984 eG FR 81 ml/min/1.73m2 03/06 Comp Metabolic Ofq752 BUN 12 mg/dL 03/06/2015 Comp Metabolic Cna219 B/ C Ratio 16.0 Ratio 03/06/2015 Comp Metabolic Ooe959 CA LCIUM 8.9 mg/dL 03/06/2015 Comp Metabolic Sxb308 AL K PHOS 56 U/L 03/06/2015 Comp Metabolic Deb718 T(SGOT) 22 U/L 03/06/2015 Comp Metabolic Dyi831 AL T(SGPT) 15 U/L 03/06/2015 Comp Metabolic Pjo064 BI LI T 0.4 mg/dL 03/06/2015 Comp Metabolic Bag287 AL BUMIN 4.0 g/dL 03/06/2015 Comp Metabolic Btj397 TP RO 6.5 g/dL 03/06/2015 Comp Metabolic Vve306 GL OB 2.5 g/dL 03/06/2015 Comp Metabolic Pkq656 A/ G Ratio 1.6 Ratio 03/06/2015 Comp Metabolic Bxw864 Os mo 273 mOsmo 03/06/2015 Vitamin D 25 Oh Xyi1012 VITAMIN D, 25 HYDROXY 28.14 ng/mL 03/06/2015 [...] Date URINALYSIS NONAUTO W /O SCOPE CPT-4: 39374 08/18/2018 ADMIN INFLUENZA VIRU S VAC CPT-4: G0008 04/20/2018 FLU VACC PRSV FREE I NC ANTIG Formatting Model/CDA Sections, Assigned to/Amparo Mims CPT-4: 68400Okpaoip 04/20/2018 PPPS, SUBSEQ VISIT CPT- 4: G0439 02/09/2018 PPPS, SUBSEQ VISIT CPT- 4: G0439 02/03/2017 ADMIN INFLUENZA VIRU S VAC CPT-4: G0008 04/08/2016 ADMIN PNEUMOCOCCAL V ACCINE SNOMED CT: 43341603 CPT-4: G0009 04/08/2016 PNEUMOCOCCAL VACC [address]: 21024766 CPT-4: 70782 04/08/2016 FLU VACC PRSV FREE I NC ANTIG CPT-4: 29013 04/08/2016 Vital Signs Date Vital 10/25/2018 Blood Pressure 1: 128/80 Code: 8480-6 BMI: 42.0 Code: 67360-9 Heart Rate 1: 93 bpm Height: 5'7" SpO2: 95% Weight: 268 lbs 10/13/2018 Blood Pressure 1: 162/76 Code: 8480-6 BMI: 42.0 Code: 36516-7 Heart Rate 1: 71 bpm Height: 5'7" SpO2: 96% Weight: 268 lbs 09/15/2018 Blood Pressure 1: 154/86 Code: 8480-6 BMI: 42.9 Code: 60300-0 Heart Rate 1: 88 bpm Height: 5'7" SpO2: 94% Weight: 274 lbs 08/15/2018 Blood Pressure 1: 140/90 Code: 8480-6 BMI: 40.7 Code: 81885-7 Heart Rate 1: 70 bpm Height: 5'7" SpO2: 93% Weight: 260 lbs 08/01/2018 Blood Pressure 1: 130/70 Code: 8480-6 BMI: 40.7 Code: 71936-2 Heart Rate 1: 80 bpm Height: 5'7" SpO2: 93% Weight: 260 lbs 04/20/2018 Blood Pressure 1: 128/68 Code: 8480-6 BMI: 41.7 Code: 00081-7 Heart Rate 1: 85 bpm Height: 5'7" SpO2: 94% Weight: 266 lbs 02/09/2018 Blood Pressure 1: 118/70 Code: 8480-6 BMI: 42.1 Code: 85517-9 Heart Rate 1: 58 bpm Height: 5'7" SpO2: 94% Weight: 269 lbs 12/16/2017 Blood Pressure 1: 132/86 Code: 8480-6 BMI: 42.7 Code: 51820-0 Heart Rate 1: 63 bpm Height: 5'7" SpO2: 94% Weight: 272 lbs 14 o z 08/23/2017 Blood Pressure 1: 150/82 Code: 8480-6 BMI: 42.0 Code: 08281-1 Heart Rate 1: 66 bpm Height: 5'7" SpO2: 96% Weight: 268 lbs 02/03/2017 Blood Pressure 1: 138/72 Code: 8480-6 BMI: 41.2 Code: 56773-4 Heart Rate 1: 96 bpm Height: 5'7" SpO2: 97% Weight: 263 lbs 02/02/2017 Blood Pressure 1: 140/90 Code: 8480-6 BMI: 41.2 Code: 82267-7 Heart Rate 1: 103 bpm Height: 5'7" SpO2: 94% Weight: 263 lbs 11/26/2016 Blood Pressure 1: 152/88 Code: 8480-6 BMI: 41.0 Code: 77326-1 Heart Rate 1: 71 bpm Height: 5'7" SpO2: 94% Temperature: 37.7 (C ) / 99.8 (F) Weight: 262 lbs 10/07/2016 Blood Pressure 1: 148/82 Code: 8480-6 BMI: 41.7 Code: 84436-6 Heart Rate 1: 58 bpm Height: 5'7" SpO2: 96% Weight: 266 lbs 09/16/2016 Blood Pressure 1: 122/70 Code: 8480-6 BMI: 42.0 Code: 72663-1 Heart Rate 1: 65 bpm Height: 5'7" SpO2: 96% Weight: 268 lbs 09/07/2016 Blood Pressure 1: 154/60 Code: 8480-6 BMI: 42.3 Code: 75928-9 Heart Rate 1: 101 bpm Height: 5'7" SpO2: 97% Weight: 270 lbs 04/08/2016 Blood Pressure 1: 128/70 Code: 8480-6 BMI: 41.4 Code: 60998-8 Heart Rate 1: 62 bpm Height: 5'7" SpO2: 95% Weight: 264 lbs 8 oz 03/05/2016 Blood Pressure 1: 144/78 Code: 8480-6 Blood Pressure 1: 139/72 Code: 8480-6 BMI: 41.9 Code: 83458-7 Heart Rate 1: 71 bpm Height: 5'7" SpO2: 93% Weight: 267 lbs 8 oz 12/04/2015 Blood Pressure 1: 132/70 Code: 8480-6 BMI: 41.3 Code: 70954-3 Heart Rate 1: 56 bpm Height: 5'7" SpO2: 96% Weight: 264 lbs 11/18/2015 Blood Pressure 1: 138/72 Code: 8480-6 BMI: 41.0 Code: 12684-5 Heart Rate 1: 85 bpm Height: 5'7" SpO2: 93% Weight: 262 lbs 09/30/2015 Blood Pressure 1: 128/76 Code: 8480-6 BMI: 41.2 Code: 03166-4 Heart Rate 1: 70 bpm Height: 5'7" SpO2: 93% Weight: 263 lbs 09/09/2015 Blood Pressure 1: 138/80 Code: 8480-6 BMI: 40.3 Code: 70140-9 Heart Rate 1: 84 bpm Height: 5'7" SpO2: 95% Weight: 257 lbs 08/28/2015 Blood Pressure 1: 122/72 Code: 8480-6 BMI: 39.6 Code: 53478-5 Heart Rate 1: 75 bpm Height: 5'7" SpO2: 96% Weight: 253 lbs 07/09/2015 Blood Pressure 1: 140/78 Code: 8480-6 Blood Pressure 1: 135/78 Code: 8480-6 BMI: 39.5 Code: 08820-7 Heart Rate 1: 62 bpm Height: 5'7" SpO2: 95% Weight: 252 lbs 03/06/2015 Blood Pressure 1: 142/88 Code: 8480-6 BMI: 39.3 Code: 59013-0 Heart Rate 1: 65 bpm Height: 5'7" SpO2: 95% Weight: 251 lbs Functional Status No Functional Status data History of Present Illness Symptom Name Status Resu lt Effective Date Notes Quality intermittent 10/25/2018 None Quality loose 10/25/2018 None Onset and Resolution s udden in onset 10/25/2018 None Onset of Symptom _ amber rs ago 10/25/2018 None Location in the [facility] area 10/25/2018 None Quality burning [...] Encounters Encounter Performer Loca tion Codes Date ([id number]) [id number] EST. P ATIENT, LEVEL IV Diagnosis: Eructation[ICD10: R14.2] Diagnosis: Nausea[ICD10: R11.0] Diagnosis: Chest pain, unspecified[ICD10: R07.9] Diagnosis: Diarrhea, unspecified[ICD10: R19.7] [facility] CPT-4: 82703 10/25/2018 ([id number]) [id number] EST. P ATIENT, LEVEL IV Diagnosis: Essential (primary) hypertension[ICD10: I10] Diagnosis: Low back pain[ICD10: M54.5] Diagnosis: Major depressive disorder, recurrent, moderate[ICD10: F33.1] [facility] CPT-4: 09263 10/13/2018 ([id number]) [id number] EST. P ATIENT, LEVEL IV Diagnosis: Essential (primary) hypertension[ICD10: I10] Diagnosis: Dysuria[ICD10: R30.0] Diagnosis: Low back pain[ICD10: M54.5] Alis [facility], [facility] CPT- 4: 75711 09/15/2018 ([id number]) [id number] EST. P ATIENT, LEVEL III Diagnosis: Essential (primary) hypertension[ICD10: I10] Diagnosis: Low back pain[ICD10: M54.5] Alis [facility] MD, [facility] CPT- 4: 50924 08/15/2018 ([id number]) 13344 EST. P ATIENT, LEVEL III Diagnosis: Essential (primary) hypertension[ICD10: I10] Diagnosis: Cough[ICD10: R05] Diagnosis: Low back pain[ICD10: M54.5] Alis [facility] MD, [facility] CPT- 4: 91962 08/01/2018 ([id number]) [id number] EST. P ATIENT, LEVEL IV Diagnosis: Encounter for immunization[ICD10: Z23] Diagnosis: Essential (primary) hypertension[ICD10: I10] Diagnosis: Chronic atrial fibrillation[ICD10: I48.2] Diagnosis: Major depressive disorder, recurrent, mild[ICD10: F33.0] [facility] CPT-4: 93312 04/20/2018 ([id number]) [id number] EST. P ATIENT, LEVEL IV Diagnosis: Essential (primary) hypertension[ICD10: I10] Diagnosis: Obstructive sleep apnea (adult) (pediatric)[ICD10: G47.33] Diagnosis: Chronic atrial fibrillation[ICD10: I48.2] Scarlett [facility] CPT-4: 56128 12/16/2017 ([id number]) [id number] EST. P ATIENT, LEVEL IV Diagnosis: Essential (primary) hypertension[ICD10: I10] Diagnosis: Chronic atrial fibrillation[ICD10: I48.2] Scarlett Spring MD, C CPT-4: 81815 08/23/2017 ([id number]) 07387 EST. P ATIENT, LEVEL IV Diagnosis: Paroxysmal atrial fibrillation[ICD10: I48.0] Diagnosis: Essential (primary) hypertension[ICD10: I10] Scarlett Spring MD, C CPT-4: 80473 02/02/2017 [id number] EST. PATIENT, LEVEL III Diagnosis: Acute laryngopharyngitis[ICD10: J06.0] Diagnosis: Cough[ICD10: R05] Diagnosis: Pleurodynia[ICD10: R07.81] Diagnosis: Other dorsalgia[ICD10: M54.89] Kassandra Spring MD, [facility] CPT-4: 22032 11/26/2016 ([id number]) 70098 EST. P ATIENT, LEVEL IV Diagnosis: Essential (primary) hypertension[ICD10: I10] Diagnosis: Pain in left knee[ICD10: M25.562] Diagnosis: Low back pain[ICD10: M54.5] Diagnosis: Major depressive disorder, recurrent, moderate[ICD10: F33.1] Scarlett Spring MD, [facility] CPT-4: 34259 10/07/2016 ([id number]) 26984 EST. P ATIENT, LEVEL IV Diagnosis: Essential (primary) hypertension[ICD10: I10] Diagnosis: Rash and other nonspecific skin eruption[ICD10: R21] Diagnosis: Major depressive disorder, recurrent, mild[ICD10: F33.0] Scarlett Spring MD, [facility] CPT-4: 24989 09/16/2016 [id number] EST. PATIENT, LEVEL IV Diagnosis: Pain in left lower leg[ICD10: M79.662] Diagnosis: Pain in left knee[ICD10: M25.562] Kassandra Spring MD, [facility] CPT-4: 23467 09/07/2016 ([id number]) 07161 EST. P ATIENT, LEVEL IV Diagnosis: Encounter for immunization[ICD10: Z23] Diagnosis: Essential (primary) hypertension[ICD10: I10] Diagnosis: Mixed hyperlipidemia[ICD10: E78.2] Scarlett Spring MD, [facility] CPT- 4: 46159 04/08/2016 ([id number]) 63380 EST. P ATIENT, LEVEL III Diagnosis: Essential (primary) hypertension[ICD10: I10] Diagnosis: Shortness of breath[ICD10: R06.02] Scarlett Spring MD, [facility] CPT- 4: 64386 03/05/2016 ([id number]) 24434 EST. P ATIENT, LEVEL III Diagnosis: Chronic obstructive pulmonary disease, unspecified[ICD10: J44.9] Scarlett Spring MD, [facility] CPT-4: 52520 12/04/2015 ([id number]) 85299 EST. P ATIENT, LEVEL IV Diagnosis: Essential (primary) hypertension[ICD10: I10] Diagnosis: Allergic rhinitis due to pollen[ICD10: J30.1] Scarlett Spring MD, [facility] CPT-4: 47839 11/18/2015 ([id number]) 19731 EST. P ATIENT, LEVEL IV Diagnosis: Localized edema[ICD10: R60.0] Diagnosis: Dysuria[ICD10: R30.0] Diagnosis: Essential (primary) hypertension[ICD10: I10] Diagnosis: Nausea[ICD10: R11.0] Alis Spring MD, [facility] CPT-4: 13905 09/30/2015 ([id number]) 52982 EST. P ATIENT, LEVEL II Diagnosis: Methicillin susceptible Staphylococcus aureus infection as the cause of diseases classified elsewhere[ICD10: B95.61] Diagnosis: Methicillin susceptible Staphylococcus aureus infection, unspecified site[ICD10: A49.01] Alis Spring MD, [facility] CPT-4: 34876 09/09/2015 ([id number]) 37687 EST. P ATIENT, LEVEL III Diagnosis: Dermatophytosis, unspecified[ICD10: B35.9] Diagnosis: Rash and other nonspecific skin eruption[ICD10: R21] Scarlett Spring MD, [facility] CPT-4: 94388 08/28/2015 ([id number]) 00096 EST. P ATIENT, LEVEL IV Diagnosis: Essential (primary) hypertension[ICD10: I10] Diagnosis: Gastro-esophageal reflux disease without esophagitis[ICD10: K21.9] Diagnosis: Other dorsalgia[ICD10: M54.89] Scarlett Spring MD, [facility] CPT-4: 36255 07/09/2015 ([id number]) [facility] - LEVEL 4 Diagnosis: ESSENTIAL HYPERTENSION[ICD9: 401.9] Diagnosis: Osteoporosis[ICD9: 733.00] Diagnosis: Back pain[ICD9: 724.5] Diagnosis: Insomnia[ICD9: 780.52] Diagnosis: ESOPHAGEAL REFLUX[ICD9: 530.81] [facility] CPT-4: 51454 03/06/2015 Plan of Care Planned Activity Notes [...] Patient Education: Patient Medication Summary Completed 10/25/2018 Care Plan: Comp Metabolic Pending 10/25/2018 Visit Plan: Hypertension - uncontro lled [...] current treatment 10/13/2018 Appointment: Alis Muhammad [facility]el: [phone] (15 min) Moderate 10/13/2018 Patient Education: Patient [...] pain management Dysuria-check Ua 09/15/2018 Appointment: Alis Muahmmad WPtel: [facility] [place] [phone] (30 min) Complex 09/15/2018 Patient Education: Patient [...] not improve 08/15/2018 Appointment: Alis Muhammad WPtel: [facility]0 [phone] (30 min) Complex 08/15/2018 Patient Education: Patient Medication Summary Completed 08/15/2018 Patient Education: Back Pain Completed 08/15/2018 Visit Plan: HTN-onofre induced cough-s top lisinopril -start losartan -monitor blood pressure and follow up in 2 weeks Low back pain-xray lumbar spine and refer for PT 08/01/2018 Appointment: Alis Muhammad WPtel: [facility]9 [phone] (15 min) Moderate 08/01/2018 Patient Education: Patient Medication Summary Completed 08/01/2018 Patient Education: Back Pain Completed 08/01/2018 Care Plan: X-RAY EXAM L-S SPINE 2/3 VWS LOINC : 44801-9 Pending 08/01/2018 Visit Plan: Hypertension - well [...] shot today. 04/20/2018 Appointment: Scarlett Spring WPtel: [address] [place], [place] [address] (15 min) Moderate 04/20/2018 Patient Education: Patient [...] WPtel: [phone] [id number] [place] [address] - Annual Wellness Visit 02/09/2018 Patient Education: [...] night. 12/16/2017 Appointment: Scarlett Spring WPtel: [phone] [facility] (15 min) Moderate 12/16/2017 [...] uncontrolled. 08/23/2017 Appointment: Scarlett Spring WPtel: [phone] [facility] (15 min) Moderate 08/23/2017 Patient Education: [...] cardiology 02/03/2017 Appointment: Kassandra Argueta WPtel: [phone] [id number] [place] [address] - Annual Wellness Visit 02/03/2017 Patient Education: [...] home. 02/02/2017 Appointment: Scarlett Spring WPtel: [facility]3 [facility] (15 min) Moderate 02/02/2017 Patient Education: [...] improve. 11/26/2016 Appointment: Kassandra Argueta WPtel: [phone] [facility] (30 min) Complex 11/26/2016 Patient Education: Patient [...] pain symptoms. 10/07/2016 Appointment: Scarlett Spring WPtel: [facility]9 [facility] (15 min) Moderate 10/07/2016 Patient Education: Patient Medication Summary Completed 10/07/2016 Patient Education: Obesity Completed 10/07/2016 Patient Education: Hypertension Completed 10/07/2016 Care Plan: VASCULAR STUDY Pending 10/04/2016 Care Plan: X-RAY EXAM OF KNEE 3 [facility] : [address]-9 Pending 10/04/2016 Visit Plan: Hypertension - well [...] paroxetine 09/16/2016 Appointment: [facility] (15 min) Moderate 09/16/2016 Patient Education: [...] improve. 09/07/2016 Appointment: [facility]gueta [facility]el[phone] [facility] (10 min) Simple 09/07/2016 Patient Education: Patient [...] order 04/08/2016 Appointment: Scarlett Spring [facility] [phone] [facility] (15 min) Moderate 04/08/2016 Patient Education: [...] days. 03/05/2016 Appointment: Scarlett Spring [facility]el[facility] [address] [facility] [place] (15 min) Moderate 03/05/2016 Patient [...] patient 12/04/2015 Appointment: Scar[facility] [facility] (15 min) Moderate 12/04/2015 Patient Education: [...] spray. 11/18/2015 Appointment: Scar[facility] Spring [facility] [phone] [facility] [place] (15 min) Moderate 11/18/2015 Patient Education: Patient Medication Summary Completed 11/18/2015 Patient Education: Obesity Completed 11/18/2015 Patient Education: Hypertension Completed 11/18/2015 Appointment: Sabrina Springy [phone] [facility] [place] (15 min) Moderate 11/07/2015 Visit Plan: [...] Visit Plan: MSSA of groin and under zbmdmlp-aznwaildv-vsyyox bactrim and call if rash does not completely resolve 09/09/2015 Appointment: (15 min) Moderate 09/09/2015 Patient Education: Patient Medication Summary Completed 09/09/2015 Visit Plan: Rash - dermatophytosis - recommended oral diflucan, topical nystatin cream, rtc in 10 days to assure healing. check of culture - may need to consider treatment with antibiotic depending on the groin culture report. 08/28/2015 Appointment: Scarlett Spring WPtel: [facility] (15 min) Moderate 08/28/2015 Patient Education: [...] improving. 07/09/2015 Appointment: Scarlett Spring WPtel: [phone] [facility] (15 min) Moderate 07/09/2015 Patient Education: [...] improving. 03/06/2015 Appointment: Scarlett Spring [facility]el[facility] [phone] [facility] [place] ([place] New Patient 03/06/2015 Patient [...] will find out if anyone comes to [place] check UA start probiotic daily . Hypertension [...]
--- OUTSIDE RECORDS SUMMARY | 2020-01-23 14:35 | XMS REPORT | CCD ---
Author Author Jeannine Spring Organization Scarlett Spring MD, [facility] Address [address] [place] [address] Phone Care Team Providers Care [facility]one Machine Feeder Name Role Phone PP Unavailable CCM Unavailable Summary Purpose Interface Exchange Insurance Providers Payer name Policy type / Coverage type Covered republican ID Effective Begin Date Effective End Date WPS Medicare Part B Medicare Part B [id number] Unknown [place] [employer] [place] Medicare Part B [id number] Unkn own Family history Mother Diagnosis Age At Onset Hypertension Unknown Heart Attack Unknown Brother Diagnosis Age At Onset Heart disease Unknown Runs in the family Diagnosis Age At Onset Heart disease Unknown Daughter Diagnosis Age At Onset Heart Attack Unknown Hyperlipidemia Unknown Hypertension Unknown Social History Social History Element Codes Description Effective Dates Number of children Unknown 2 daughter lives in [place], son - does not have contact 09/16/[address]: 4799830 Quit over 10 years ago 1990 - previously smoked 2ppd x 25 years. 11/18/2015 Marital status Unknown W idowed in 201003/06/2015 Employment Unknown Retir ed was a [employer] 03/06/2015 Allergies, Adverse Reactions, Alerts Substance Reaction [...] Date Stop Date Sta tus Fill Instructions paroxetine 40 mg tablet RxNorm: 8534355 1 Tablet(s) PO daily 10/13/2018 04/10/2019 Active valsartan 160 mg tablet RxNorm: 148320 1 Tablet(s) PO daily 10/13/2018 04/10/2019 Active Ambien 10 mg tablet RxNorm: 331783 TAKE ONE TABLET BY MOUTH AT BEDTIME N EEDED 09/23/2018 11/21/2018 Ac tive terazosin 5 mg capsule RxNorm: 727860 TAKE ONE CAPSULE BY MOUTH DAILY 09/23/2018 02/19/2019 Ac tive trazodone 50 mg tablet RxNorm: 839794 TAKE ONE TABLET BY MOUTH DAILY 09/23/2018 03/21/2019 Ac tive losartan 50 mg tablet RxNorm: 641320 1 Tablet(s) PO daily 09/15/2018 10/12/2018 Inactive omeprazole 20 mg cap marina,delayed release RxNorm: 489056 TAKE ONE CAPSULE BY M OUTH EVERY NIGHT AT BEDTIME 09/12/2018 03/10/2019 Active Keflex 500 mg capsule RxNorm: 761045 1 Capsule(s) PO TID 08/18/2018 08/17/2018 Inactive Keflex 500 mg capsule RxNorm: 682770 1 Capsule(s) PO TID 08/18/2018 08/24/2018 Inactive take probiotic while on abx paroxetine 20 mg tablet RxNorm: 2601031 TAKE ONE TABLET BY MOUTH DAILY 08/12/2018 10/12/2018 In active losartan 25 mg tablet RxNorm: 431996 1 Tablet(s) PO daily 08/01/2018 09/14/2018 Inactive losartan 25 mg tablet RxNorm: 071976 1 Tablet(s) PO daily 08/01/2018 10/12/2018 Inactive trazodone 50 mg tablet RxNorm: 499904 TAKE ONE TABLET BY MOUTH DAILY 07/25/2018 09/22/2018 In active Ambien 10 mg tablet RxNorm: 589726 Tablet(s) TAKE ONE TABLET BY MOUTH AT BE DTIME 06/24/2018 09/23/2018 Inactive trazodone 50 mg tablet RxNorm: 496524 TAKE ONE TABLET BY MOUTH DAILY 04/25/2018 07/23/2018 In active Ambien 10 mg tablet RxNorm: 825324 Tablet(s) TAKE ONE TABLET BY MOUTH AT BE DTIME 03/23/2018 06/19/2018 Inactive terazosin 5 mg capsule RxNorm: 616109 TAKE ONE CAPSULE BY MOUTH DAILY 03/14/2018 09/09/2018 In active Ambien 10 mg tablet RxNorm: 030707 Tablet(s) TAKE ONE TABLET BY MOUTH AT BE DTIME 01/18/2018 09/14/2018 Inactive trazodone 50 mg tablet RxNorm: 950459 TAKE ONE TABLET BY MOUTH ONCE DAILY 01/10/2018 03/22/2018 In active trazodone 50 mg tablet RxNorm: 208672 Tablet(s) TAKE ONE TABLET BY MOUTH ONCE DAILY 01/10/2018 04/24/2018 Inactive Ambien 10 mg tablet RxNorm: 520478 Tablet(s) TAKE ONE TABLET BY MOUTH AT BE DTIME 10/22/2017 01/17/2018 Inactive trazodone 50 mg tablet RxNorm: 246501 TAKE ONE TABLET BY MOUTH ONCE DAILY 10/18/2017 01/09/2018 In active omeprazole 20 mg cap marina,delayed release RxNorm: 258708 TAKE ONE CAPSULE BY M OUTH ONCE DAILY AT BEDTIME 08/27/2017 09/11/2018 Inactive trazodone 50 mg tablet RxNorm: 855233 TAKE ONE TABLET BY MOUTH ONCE DAILY 08/18/2017 10/17/2017 In active Ambien 10 mg tablet RxNorm: 789043 Tablet(s) TAKE ONE TABLET BY MOUTH AT BE DTINV 08/18/2017 03/22/2018 Inactive paroxetine 20 mg tablet RxNorm: 2188057 TAKE ONE TABLET BY MOUTH ONCE DAILY 07/27/2017 08/11/2018 In active Ambien 10 mg tablet RxNorm: 859618 Tablet(s) TAKE ONE TABLET BY MOUTH AT BE DTIME 06/23/2017 03/22/2018 Inactive omeprazole 20 mg cap marina,delayed release RxNorm: 671708 TAKE ONE CAPSULE BY M OUTH ONCE DAILY AT BEDTIME 04/23/2017 08/20/2017 Inactive trazodone 50 mg tablet RxNorm: 794759 TAKE ONE TABLET BY MOUTH ONCE DAILY 04/13/2017 08/10/2017 In active terazosin 5 mg capsule RxNorm: 720071 Capsule(s) TAKE ONE CAPSULE BY MOUTH TATA 04/08/2017 03/03/2018 In active Ambien 10 mg tablet RxNorm: 478524 Tablet(s) TAKE ONE TABLET BY MOUTH AT BE DTINV 02/17/2017 03/22/2018 Inactive Tylenol-Codeine #3 3 00 mg-30 mg tablet RxNorm: 790867 1 Tablet(s) PO QID as needed 02/02/2017 03/03/2017 In active metoprolol succinate ER 50 mg tablet,extended release 24 hr RxNorm: 036111 TAKE ONE TABLET BY MOUTH ONCE DAILY 12/23/2016 02/02/2017 Inactive Zithromax Z-Ted 250 mg tablet RxNorm: 569661 1 Tablet(s) PO UD 11/26/2016 02/16/2017 Inactive trazodone 50 mg tablet RxNorm: 441369 TAKE ONE TABLET BY MOUTH ONCE DAILY 11/12/2016 03/11/2017 In active Ambien 10 mg tablet RxNorm: 132266 Tablet(s) TAKE ONE TABLET BY MOUTH AT BE DTIME 10/22/2016 02/15/2017 Inactive paroxetine 20 mg tablet RxNorm: 6668778 1 Tablet(s) PO daily TAKE ONE TABLET BY MOUTH DAILY 09/16/2016 06/12/2017 Inactive meloxicam 7.5 mg tablet RxNorm: 852892 1 Tablet(s) PO daily 09/16/2016 11/14/2016 Inactive Protonix 40 mg table t,delayed release RxNorm: 747607 1 Tablet(s) PO daily 09/16/2016 08/22/2017 In active sucralfate 1 gram ta blet RxNorm: 198983 1 Tablet(s) PO TID 09/16/2016 08/22/2017 Inactive Ambien 10 mg tablet RxNorm: 470734 Tablet(s) TAKE ONE TABLET BY MOUTH AT [facility] 08/24/2016 03/22/2018 Inactive trazodone 50 mg tablet RxNorm: 282477 Tablet(s) TAKE ONE TABLET BY MOUTH DAILY 07/29/2016 11/11/2016 In active Ambien 10 mg tablet RxNorm: 293030 TAKE ONE TABLET BY MOUTH AT BEDTIME 06/23/2016 03/22/2018 In active Ambien 10 mg tablet RxNorm: 080111 Tablet(s) TAKE ONE TABLET BY MOUTH EVERY NIGHT AT BEDTIME 06/22/2016 06/23/2016 Inactive Lasix 40 mg tablet RxNorm: 497337 1 Tablet(s) PO daily as needed for swell ing 04/03/2016 09/15/2016 In active potassium chloride E R 20 mEq tablet,extended release RxNorm: 368005 1 Tablet(s) PO daily for swelling take with lasix as needed 04/03/2016 09/15/2016 Inactive Ambien 10 mg tablet RxNorm: 716261 Tablet(s) TAKE ONE TABLET BY MOUTH EVERY NIGHT AT BEDTIME 04/03/2016 03/22/2018 Inactive omeprazole 20 mg cap marina,delayed release RxNorm: 706950 TAKE ONE CAPSULE BY M OUTH EVERY NIGHT AT BEDTIME 03/31/2016 09/15/2016 Inactive paroxetine 20 mg tablet RxNorm: 4213042 TAKE ONE TABLET BY MOUTH DAILY 03/31/2016 09/15/2016 In active trazodone 50 mg tablet RxNorm: 420355 TAKE ONE TABLET BY MOUTH DAILY 03/20/2016 07/28/2016 In active terazosin 5 mg capsule RxNorm: 257810 TAKE ONE CAPSULE BY MOUTH DAILY 03/06/2016 10/06/2016 In active Ambien 10 mg tablet RxNorm: 007088 Tablet(s) TAKE ONE TABLET BY MOUTH EVERY NIGHT AT BEDTIME 01/17/2016 04/02/2016 Inactive loratadine 10 mg tablet RxNorm: 914859 1 Tablet(s) PO daily 01/15/2016 09/15/2016 Inactive mupirocin 2 % topica l ointment RxNorm: 460411 1 Application TOP TID 11/18/2015 12/01/2015 Inactive metoprolol succinate ER 50 mg tablet,extended release 24 hr RxNorm: 066241 1 Tablet(s) PO daily 11/18/2015 11/11/2016 Inactive loratadine 10 mg tablet RxNorm: 905576 1 Tablet(s) PO daily 11/18/2015 01/14/2016 Inactive Lasix 40 mg tablet RxNorm: 630594 1 Tablet(s) PO daily as needed for swell ing 10/30/2015 11/28/2015 In active potassium chloride E R 20 mEq tablet,extended release RxNorm: 364489 1 Tablet(s) PO daily for swelling take with lasix as needed 10/30/2015 11/28/2015 Inactive Tylenol-Codeine #3 3 00 mg-30 mg tablet RxNorm: 354919 1 Tablet(s) PO QID as needed 10/25/2015 02/01/2017 In active Ambien 10 mg tablet RxNorm: 780495 Tablet(s) TAKE ONE TABLET BY MOUTH EVERY NIGHT AT BEDTIME 10/18/2015 03/22/2018 Inactive Diflucan 150 mg tablet RxNorm: 895018 1 Tablet(s) PO daily 10/01/2015 12/03/2015 Inactive Lasix 20 mg tablet RxNorm: 108289 1 Tablet(s) PO PRN fror swelling 09/27/2015 10/29/2015 In active potassium chloride E R 10 mEq capsule,extended release RxNorm: 652015 1 Capsule(s) PO PRN for swelling take with lasix 09/27/2015 10/29/2015 Inactive Bactrim DS 800 mg-16 0 mg tablet RxNorm: 461932 1 Tablet(s) PO BID 09/02/2015 09/11/2015 Inactive Bactrim DS 800 mg-16 0 mg tablet RxNorm: 521201 1 Tablet(s) PO BID 09/02/2015 09/01/2015 Inactive nystatin 100,000 uni t/gram topical cream RxNorm: 179186 1 Gram(s) TOP TID 08/28/2015 09/26/2015 In active Diflucan 150 mg tablet RxNorm: 814535 1 Tablet(s) PO daily 08/28/2015 09/06/2015 Inactive betamethasone diprop ionate 0.05 % topical ointment RxNorm: 370901 1 Application TOP TID to affected area 08/02/2015 02/01/2017 Inactive nystatin 100,000 uni t/gram topical powder RxNorm: 332956 1 Gram(s) TOP QID 07/09/2015 08/01/2015 In active Ambien 10 mg tablet RxNorm: 343760 1 Tablet(s) PO QHS 06/19/2015 06/18/2015 Inactive Ambien 10 mg tablet RxNorm: 742900 TAKE ONE TABLET BY MOUTH EVERY NIGHT AT BEDTIME 06/19/2015 09/16/2015 Inactive Vitamin D2 50,000 un it capsule RxNorm: 661746 1 Capsule(s) PO QW 03/07/2015 03/06/2015 Inactive Vitamin D2 50,000 un it capsule RxNorm: 098271 1 Capsule(s) PO QW 03/07/2015 05/05/2015 Inactive terazosin 5 mg capsule RxNorm: 332590 1 Capsule(s) PO daily 03/06/2015 02/28/2016 Inactive [SAVINGS FOR NON-COVERED DRUGS -- BIN:00 6132, PCN: [id number], Group: XXXXX, ID# [id number], Questions: . THIS IS NOT INSURANCE.] trazodone 50 mg tablet RxNorm: 630118 1 Tablet(s) PO daily 03/06/2015 02/28/2016 Inactive paroxetine 20 mg tablet RxNorm: 5954671 1 Tablet(s) PO daily 03/06/2015 02/28/2016 Inactive Tylenol-Codeine #3 3 00 mg-30 mg tablet RxNorm: 951365 1 Tablet(s) PO QID as needed 03/06/2015 07/02/2015 In active amlodipine 10 mg tablet RxNorm: 536930 1 Tablet(s) PO daily 03/06/2015 11/17/2015 Inactive metoprolol succinate ER 25 mg tablet,extended release 24 hr RxNorm: 513788 1 Tablet(s) PO daily 03/06/2015 11/17/2015 Inactive omeprazole 20 mg cap marina,delayed release RxNorm: 224085 1 Capsule(s) PO QHS 03/06/2015 02/28/2016 In active omeprazole 20 mg cap marina,delayed release RxNorm: 032636 1 Capsule(s) PO QHS 01/31/2015 01/30/2015 In active omeprazole 20 mg cap marina,delayed release RxNorm: 158676 1 Capsule(s) PO QHS 01/31/2015 01/30/2015 In active omeprazole 20 mg cap marina,delayed release RxNorm: 265489 1 Capsule(s) PO QHS 01/31/2015 03/05/2015 In active Ambien 10 mg tablet RxNorm: 515042 1 Tablet(s) PO QHS 12/25/2014 04/21/2015 Inactive paroxetine 20 mg tablet RxNorm: 516097 1 Tablet(s) PO daily 12/25/2014 12/24/2014 Inactive Ambien 10 mg tablet RxNorm: 521596 1 Tablet(s) PO QHS 12/25/2014 12/24/2014 Inactive paroxetine 20 mg tablet RxNorm: 299513 1 Tablet(s) PO daily 12/25/2014 03/05/2015 Inactive terazosin 5 mg capsule RxNorm: 168689 1 Capsule(s) PO daily 11/23/2014 03/05/2015 Inactive [SAVINGS FOR NON-COVERED DRUGS -- BIN:00 3585, PCN: ASPROD1, Group: XXXXX, ID# [id number], Questions: . THIS IS NOT INSURANCE.] terazosin 5 mg capsule RxNorm: 833392 1 Capsule(s) PO daily 11/23/2014 11/22/2014 Inactive Lasix 20 mg tablet RxNorm: 041148 1 Tablet(s) PO daily No Start Date Active K-Dur 10 mEq tablet, extended release RxNorm: 757392 1 Tablet(s) PO daily No Start Date Active hydrochlorothiazide 25 mg tablet RxNorm: 435402 1 Tablet(s) PO daily No Start Date Active Vitamin D3 2,000 uni t tablet RxNorm: 003414 1 Tablet(s) PO daily No Start Date Active amiodarone 200 mg ta blet RxNorm: 985039 1 Tablet(s) PO BID No Start Date Active Zetia 10 mg tablet RxNorm: 456260 1 Tablet(s) PO daily No Start Date Active Lipitor 80 mg tablet RxNorm: 669606 1/2 Tablet(s) PO daily No Start Date Active Coumadin 4 mg tablet RxNorm: 860058 1 Tablet(s) PO daily No Start Date Active metoprolol succinate ER 25 mg tablet,extended release 24 hr RxNorm: 962954 1 Tablet(s) PO daily No Start Date 03/05/2015 Inactive Entresto 49 mg-51 mg tablet RxNorm: 5175477 1 Tablet(s) PO BID No Start Date 04/19/2018 Inactive sotalol 80 mg tablet RxNorm: 5583020 1 Tablet(s) PO BID No Start Date 04/19/2018 Inactive betamethasone diprop ionate 0.05 % topical ointment RxNorm: 697586 1 Application TOP TID to affected area No Start Date 08/01/2015 Inactive trazodone 50 mg tablet RxNorm: 283886 1 Tablet(s) PO daily No Start Date 03/05/2015 Inactive potassium chloride E R 10 mEq capsule,extended release RxNorm: 889247 1 Capsule(s) PO PRN for swelling take with lasix No Start Date 09/26/2015 Inactive Eliquis 5 mg tablet RxNorm: 9344745 1 Tablet(s) PO BID No Start Date 09/14/2018 Inactive amlodipine 10 mg tablet RxNorm: 113896 1 Tablet(s) PO daily No Start Date 03/05/2015 Inactive isosorbide mononitra te ER 30 mg tablet,extended release 24 hr RxNorm: 845929 1 Tablet(s) PO daily No Start Date 08/22/2017 Inactive aspirin 81 mg tablet ,delayed release RxNorm: 344654 1 Tablet(s) PO daily No Start Date 02/02/2017 Inactive Lasix 20 mg tablet RxNorm: 470682 1 Tablet(s) PO PRN fror swelling No Start Date 09/26/2015 Inactive lisinopril 5 mg tablet RxNorm: 197606 1 Tablet(s) PO daily No Start Date 07/31/2018 Inactive Crestor 40 mg tablet RxNorm: 217764 1 Tablet(s) PO daily No Start Date 09/15/2016 Inactive metoprolol succinate ER 100 mg tablet,extended release 24 hr RxNorm: 558235 1 Tablet(s) PO daily No Start Date [...] Reason For Visit Effective Dates Notes hypertension 10/13/2018 hypertension 09/15/2018 blood pressure followup [...] Item Item Code Result Date Culture Urine [id number] URI NE CULTURE SEE NOTES 08/22/2018 Culture Urine [id number] Con tinued Results 08/22/2018 Urine Culture Ucult Comp lete >100,000 col/ml aerobic grow th sent to ref lab 08/19/2018 Comp Metabolic Uit144 NA 140 mEq/L 08/01/2018 Comp Metabolic Jwm781 K 4.2 mEq/L 08/01/2018 Comp Metabolic Oma857 CL 102 mEq/L 08/01/2018 Comp Metabolic Fua362 CO2 27.0 mEq/L 08/01/2018 Comp Metabolic Vab196 AN ION GAP 15 08/01/2018 Comp Metabolic Hga723 GL UCOSE 107 mg/dL 08/01/2018 Comp Metabolic Nyr317 Cr eat 1.0 mg/dL 08/01/2018 Comp Metabolic Mxg522 eG FR 58 ml/min/1.73m2 08/01 Comp Metabolic Poi410 BUN 10 mg/dL 08/01/2018 Comp Metabolic Ddu948 B/ C Ratio 10.0 Ratio 08/01/2018 Comp Metabolic Wmw765 CA LCIUM 8.9 mg/dL 08/01/2018 Comp Metabolic Utu880 AL K PHOS 68 U/L 08/01/2018 Comp Metabolic Hje371 T(SGOT) 18 U/L 08/01/2018 Comp Metabolic Wkk149 AL T(SGPT) 14 U/L 08/01/2018 Comp Metabolic Eie297 BI LI T 0.5 mg/dL 08/01/2018 Comp Metabolic Beu975 AL BUMIN 4.0 g/dL 08/01/2018 Comp Metabolic Nzm440 TP RO 6.3 g/dL 08/01/2018 Comp Metabolic Fxg048 GL OB 2.3 g/dL 08/01/2018 Comp Metabolic Efk379 A/ G Ratio 1.7 Ratio 08/01/2018 Comp Metabolic Sib387 Os mo 279 mOsmo 08/01/2018 Tsh Ord6 [...] 27.3 pg 08/01/2018 Cbc With Differential Ord2 [place]% 9.8 % 08/01/2018 Cbc With Differential Ord2 [...] 0.79 K/ul 08/01/2018 Cbc With Differential Ord2 [place] ABS# 0.4 K/ul 08/01/2018 Cbc With Differential Ord2 Eos ABS# 0.1 K/ul 08/01/2018 Cbc With Differential Ord2 Baso ABS# 0.0 K/ul 08/01/2018 Lipid Ord30 CHOL 234 mg/dL 08/01/2018 Lipid Ord30 HDL 69.0 mg/dl 08/01/2018 Lipid Ord30 TRIG 57 mg/dL 08/01/2018 Lipid Ord30 LDL 154 mg/dL 08/01/2018 Lipid Ord30 C/HDL 3.4 Ratio 08/01/2018 Comp Metabolic Nit448 NA 137 mEq/L 09/30/2015 Comp Metabolic Fxj277 K 4.5 mEq/L 09/30/2015 Comp Metabolic Ntx598 CL 102 mEq/L 09/30/2015 Comp Metabolic Cam584 CO2 26.0 mEq/L 09/30/2015 Comp Metabolic Sxd375 AN ION GAP 14 09/30/2015 Comp Metabolic Qmh414 GL UCOSE 89 mg/dL 09/30/2015 Comp Metabolic Jyb698 Cr eat 0.8 mg/dL 09/30/2015 Comp Metabolic Kkg295 eG FR 79 ml/min/1.73m2 09/29 Comp Metabolic Tek403 BUN 14 mg/dL 09/30/2015 Comp Metabolic Tcw195 B/ C Ratio 18.2 Ratio 09/30/2015 Comp Metabolic Sem890 CA LCIUM 8.9 mg/dL 09/30/2015 Comp Metabolic Jui795 AL K PHOS 65 U/L 09/30/2015 Comp Metabolic Urq695 T(SGOT) 26 U/L 09/30/2015 Comp Metabolic Wof271 AL T(SGPT) 18 U/L 09/30/2015 Comp Metabolic Fof972 BI LI T 0.6 mg/dL 09/30/2015 Comp Metabolic Onc817 AL BUMIN 3.8 g/dL 09/30/2015 Comp Metabolic Bvv564 TP RO 6.6 g/dL 09/30/2015 Comp Metabolic Ust753 GL OB 2.8 g/dL 09/30/2015 Comp Metabolic Moq868 A/ G Ratio 1.4 Ratio 09/30/2015 Comp Metabolic Dcy677 Os mo 274 mOsmo 09/30/2015 Cbc With [...] 27.7 pg 09/30/2015 Cbc With Differential Ord2 [place]% 10.7 % 09/30/2015 Cbc With Differential Ord2 [...] 1.10 K/ul 09/30/2015 Cbc With Differential Ord2 [place] ABS# 0.6 K/ul 09/30/2015 Cbc With Differential Ord2 Eos ABS# 0.2 K/ul 09/30/2015 Cbc With Differential Ord2 Baso ABS# 0.0 K/ul 09/30/2015 Cbc With Differential Ord2 New Analyzer Notice Please note new ref ranges s tarting 08-07-2015 due to implemntation of new five part differential hematolgy analyzer. 09/30/2015 Tsh Ord6 hTSH II 1.05 uIU/mL 03/06/2015 Comp Metabolic Bvx057 NA 137 mEq/L 03/06/2015 Comp Metabolic Ejp724 K 4.3 mEq/L 03/06/2015 Comp Metabolic Lzt704 CL 104 mEq/L 03/06/2015 Comp Metabolic Gee226 CO2 28.0 mEq/L 03/06/2015 Comp Metabolic Vxg295 AN ION GAP 9 03/06/2015 Comp Metabolic Uzh461 GL UCOSE 93 mg/dL 03/06/2015 Comp Metabolic Avi069 Cr eat 0.8 mg/dL 03/06/2015 Comp Metabolic Xbf303 eG FR 81 ml/min/1.73m2 03/06 Comp Metabolic Hov726 BUN 12 mg/dL 03/06/2015 Comp Metabolic Rkp735 B/ C Ratio 16.0 Ratio 03/06/2015 Comp Metabolic Kts946 CA LCIUM 8.9 mg/dL 03/06/2015 Comp Metabolic Qod459 AL K PHOS 56 U/L 03/06/2015 Comp Metabolic Vgd756 T(SGOT) 22 U/L 03/06/2015 Comp Metabolic Bkd226 AL T(SGPT) 15 U/L 03/06/2015 Comp Metabolic Tag934 BI LI T 0.4 mg/dL 03/06/2015 Comp Metabolic Mfi947 AL BUMIN 4.0 g/dL 03/06/2015 Comp Metabolic Ukn156 TP RO 6.5 g/dL 03/06/2015 Comp Metabolic Mrd937 GL OB 2.5 g/dL 03/06/2015 Comp Metabolic Ksr732 A/ G Ratio 1.6 Ratio 03/06/2015 Comp Metabolic Fus599 Os mo 273 mOsmo 03/06/2015 Vitamin D 25 Oh Wio8713 VITAMIN D, 25 HYDROXY 28.14 ng/mL 03/06/2015 [...] System Result Effective Dates Constitutional recent illness 10/13/2018 Constitutional No chills [...] 09/15/2018 None Full Exam - General 1995 Eyes conjunctiva/eyelids Overall: cornea clear 09/15/2018 None [...] Date URINALYSIS NONAUTO W /O SCOPE CPT-4: 32298 08/18/2018 ADMIN INFLUENZA VIRU S VAC CPT-4: G0008 04/20/2018 FLU VACC PRSV FREE I NC ANTIG Formatting Model/CDA Sections, Assigned to/Amparo Mims CPT-4: 30357Zgdbors 04/20/2018 PPPS, SUBSEQ VISIT CPT- 4: G0439 02/09/2018 PPPS, SUBSEQ VISIT CPT- 4: G0439 02/03/2017 ADMIN INFLUENZA VIRU S VAC CPT-4: G0008 04/08/2016 ADMIN PNEUMOCOCCAL V ACCINE SNOMED CT: 12697588 CPT-4: G0009 04/08/2016 PNEUMOCOCCAL VACC [address]: 27503822 CPT-4: 61897 04/08/2016 FLU VACC PRSV FREE I NC ANTIG CPT-4: 91413 04/08/2016 Vital Signs Date Vital 10/13/2018 Blood Pressure 1: 162/76 Code: 8480-6 BMI: 42.0 Code: 21076-7 Heart Rate 1: 71 bpm Height: 5'7" SpO2: 96% Weight: 268 lbs 09/15/2018 Blood Pressure 1: 154/86 Code: 8480-6 BMI: 42.9 Code: 87551-2 Heart Rate 1: 88 bpm Height: 5'7" SpO2: 94% Weight: 274 lbs 08/15/2018 Blood Pressure 1: 140/90 Code: 8480-6 BMI: 40.7 Code: 23286-4 Heart Rate 1: 70 bpm Height: 5'7" SpO2: 93% Weight: 260 lbs 08/01/2018 Blood Pressure 1: 130/70 Code: 8480-6 BMI: 40.7 Code: 09603-5 Heart Rate 1: 80 bpm Height: 5'7" SpO2: 93% Weight: 260 lbs 04/20/2018 Blood Pressure 1: 128/68 Code: 8480-6 BMI: 41.7 Code: 14344-8 Heart Rate 1: 85 bpm Height: 5'7" SpO2: 94% Weight: 266 lbs 02/09/2018 Blood Pressure 1: 118/70 Code: 8480-6 BMI: 42.1 Code: 58461-4 Heart Rate 1: 58 bpm Height: 5'7" SpO2: 94% Weight: 269 lbs 12/16/2017 Blood Pressure 1: 132/86 Code: 8480-6 BMI: 42.7 Code: 21659-8 Heart Rate 1: 63 bpm Height: 5'7" SpO2: 94% Weight: 272 lbs 14 o z 08/23/2017 Blood Pressure 1: 150/82 Code: 8480-6 BMI: 42.0 Code: 96585-0 Heart Rate 1: 66 bpm Height: 5'7" SpO2: 96% Weight: 268 lbs 02/03/2017 Blood Pressure 1: 138/72 Code: 8480-6 BMI: 41.2 Code: 24828-2 Heart Rate 1: 96 bpm Height: 5'7" SpO2: 97% Weight: 263 lbs 02/02/2017 Blood Pressure 1: 140/90 Code: 8480-6 BMI: 41.2 Code: 29766-2 Heart Rate 1: 103 bpm Height: 5'7" SpO2: 94% Weight: 263 lbs 11/26/2016 Blood Pressure 1: 152/88 Code: 8480-6 BMI: 41.0 Code: 76234-8 Heart Rate 1: 71 bpm Height: 5'7" SpO2: 94% Temperature: 37.7 (C ) / 99.8 (F) Weight: 262 lbs 10/07/2016 Blood Pressure 1: 148/82 Code: 8480-6 BMI: 41.7 Code: 84748-7 Heart Rate 1: 58 bpm Height: 5'7" SpO2: 96% Weight: 266 lbs 09/16/2016 Blood Pressure 1: 122/70 Code: 8480-6 BMI: 42.0 Code: 01405-1 Heart Rate 1: 65 bpm Height: 5'7" SpO2: 96% Weight: 268 lbs 09/07/2016 Blood Pressure 1: 154/60 Code: 8480-6 BMI: 42.3 Code: 45761-8 Heart Rate 1: 101 bpm Height: 5'7" SpO2: 97% Weight: 270 lbs 04/08/2016 Blood Pressure 1: 128/70 Code: 8480-6 BMI: 41.4 Code: 84981-6 Heart Rate 1: 62 bpm Height: 5'7" SpO2: 95% Weight: 264 lbs 8 oz 03/05/2016 Blood Pressure 1: 144/78 Code: 8480-6 Blood Pressure 1: 139/72 Code: 8480-6 BMI: 41.9 Code: 55821-8 Heart Rate 1: 71 bpm Height: 5'7" SpO2: 93% Weight: 267 lbs 8 oz 12/04/2015 Blood Pressure 1: 132/70 Code: 8480-6 BMI: 41.3 Code: 33870-7 Heart Rate 1: 56 bpm Height: 5'7" SpO2: 96% Weight: 264 lbs 11/18/2015 Blood Pressure 1: 138/72 Code: 8480-6 BMI: 41.0 Code: 36010-8 Heart Rate 1: 85 bpm Height: 5'7" SpO2: 93% Weight: 262 lbs 09/30/2015 Blood Pressure 1: 128/76 Code: 8480-6 BMI: 41.2 Code: 20035-2 Heart Rate 1: 70 bpm Height: 5'7" SpO2: 93% Weight: 263 lbs 09/09/2015 Blood Pressure 1: 138/80 Code: 8480-6 BMI: 40.3 Code: 07967-2 Heart Rate 1: 84 bpm Height: 5'7" SpO2: 95% Weight: 257 lbs 08/28/2015 Blood Pressure 1: 122/72 Code: 8480-6 BMI: 39.6 Code: 97206-4 Heart Rate 1: 75 bpm Height: 5'7" SpO2: 96% Weight: 253 lbs 07/09/2015 Blood Pressure 1: 140/78 Code: 8480-6 Blood Pressure 1: 135/78 Code: 8480-6 BMI: 39.5 Code: 09793-4 Heart Rate 1: 62 bpm Height: 5'7" SpO2: 95% Weight: 252 lbs 03/06/2015 Blood Pressure 1: 142/88 Code: 8480-6 BMI: 39.3 Code: 63843-1 Heart Rate 1: 65 bpm Height: 5'7" SpO2: 95% Weight: 251 lbs Functional Status No Functional Status data History of Present Illness Symptom Name Status Resu lt Effective Date Notes Quality chronic 10/13/2018 None Quality primary hypert [...] Encounters Encounter Performer Loca tion Codes Date ([id number]) [id number] EST. P ATIENT, LEVEL IV Diagnosis: Essential (primary) hypertension[ICD10: I10] Diagnosis: Low back pain[ICD10: M54.5] Diagnosis: Major depressive disorder, recurrent, moderate[ICD10: F33.1] [facility] CPT-4: 63320 10/13/2018 ([id number]) [id number] EST. P ATIENT, LEVEL IV Diagnosis: Essential (primary) hypertension[ICD10: I10] Diagnosis: Dysuria[ICD10: R30.0] Diagnosis: Low back pain[ICD10: M54.5] Alis [facility] MD, [facility] CPT- 4: 05504 09/15/2018 ([id number]) [id number] EST. P ATIENT, LEVEL III Diagnosis: Essential (primary) hypertension[ICD10: I10] Diagnosis: Low back pain[ICD10: M54.5] Alis Spring MD, [facility] CPT- 4: 98830 08/15/2018 ([id number]) [id number] EST. P ATIENT, LEVEL III Diagnosis: Essential (primary) hypertension[ICD10: I10] Diagnosis: Cough[ICD10: R05] Diagnosis: Low back pain[ICD10: M54.5] Alis Spring MD, [facility] CPT- 4: 80965 08/01/2018 ([id number]) 10776 EST. P ATIENT, LEVEL IV Diagnosis: Encounter for immunization[ICD10: Z23] Diagnosis: Essential (primary) hypertension[ICD10: I10] Diagnosis: Chronic atrial fibrillation[ICD10: I48.2] Diagnosis: Major depressive disorder, recurrent, mild[ICD10: F33.0] Scarlett Spring MD, C CPT-4: 89326 04/20/2018 ([id number]) 44026 EST. P ATIENT, LEVEL IV Diagnosis: Essential (primary) hypertension[ICD10: I10] Diagnosis: Obstructive sleep apnea (adult) (pediatric)[ICD10: G47.33] Diagnosis: Chronic atrial fibrillation[ICD10: I48.2] Scarlett Spring MD, C CPT-4: 02202 12/16/2017 ([id number]) 62843 EST. P ATIENT, LEVEL IV Diagnosis: Essential (primary) hypertension[ICD10: I10] Diagnosis: Chronic atrial fibrillation[ICD10: I48.2] Scarlett Spring MD, C CPT-4: 31356 08/23/2017 ([id number]) 36036 EST. P ATIENT, LEVEL IV Diagnosis: Paroxysmal atrial fibrillation[ICD10: I48.0] Diagnosis: Essential (primary) hypertension[ICD10: I10] Scarlett Spring MD, C CPT-4: 82956 02/02/2017 [id number] EST. PATIENT, LEVEL III Diagnosis: Acute laryngopharyngitis[ICD10: J06.0] Diagnosis: Cough[ICD10: R05] Diagnosis: Pleurodynia[ICD10: R07.81] Diagnosis: Other dorsalgia[ICD10: M54.89] Kassandra Spring MD, [facility] CPT-4: 73847 11/26/2016 ([id number]) 43414 EST. P ATIENT, LEVEL IV Diagnosis: Essential (primary) hypertension[ICD10: I10] Diagnosis: Pain in left knee[ICD10: M25.562] Diagnosis: Low back pain[ICD10: M54.5] Diagnosis: Major depressive disorder, recurrent, moderate[ICD10: F33.1] Scarlett Spring MD, [facility] CPT-4: 93253 10/07/2016 ([id number]) 40109 EST. P ATIENT, LEVEL IV Diagnosis: Essential (primary) hypertension[ICD10: I10] Diagnosis: Rash and other nonspecific skin eruption[ICD10: R21] Diagnosis: Major depressive disorder, recurrent, mild[ICD10: F33.0] Scarlett Spring MD, [facility] CPT-4: 26034 09/16/2016 19238 EST. PATIENT, LEVEL IV Diagnosis: Pain in left lower leg[ICD10: M79.662] Diagnosis: Pain in left knee[ICD10: M25.562] Kassandra Spring MD, [facility] CPT-4: 52625 09/07/2016 ([id number]) 06664 EST. P ATIENT, LEVEL IV Diagnosis: Encounter for immunization[ICD10: Z23] Diagnosis: Essential (primary) hypertension[ICD10: I10] Diagnosis: Mixed hyperlipidemia[ICD10: E78.2] Scarlett Spring MD, [facility] CPT- 4: 72615 04/08/2016 ([id number]) 35312 EST. P ATIENT, LEVEL III Diagnosis: Essential (primary) hypertension[ICD10: I10] Diagnosis: Shortness of breath[ICD10: R06.02] Scarlett Spring MD, [facility] CPT- 4: 56329 03/05/2016 ([id number]) 56458 EST. P ATIENT, LEVEL III Diagnosis: Chronic obstructive pulmonary disease, unspecified[ICD10: J44.9] Scarlett Spring MD, [facility] CPT-4: 59217 12/04/2015 ([id number]) 93866 EST. P ATIENT, LEVEL IV Diagnosis: Essential (primary) hypertension[ICD10: I10] Diagnosis: Allergic rhinitis due to pollen[ICD10: J30.1] Scarlett Spring MD, [facility] CPT-4: 91966 11/18/2015 ([id number]) 94332 EST. P ATIENT, LEVEL IV Diagnosis: Localized edema[ICD10: R60.0] Diagnosis: Dysuria[ICD10: R30.0] Diagnosis: Essential (primary) hypertension[ICD10: I10] Diagnosis: Nausea[ICD10: R11.0] Alis Spring MD, [facility] CPT-4: 24208 09/30/2015 ([id number]) 66612 EST. P ATIENT, LEVEL II Diagnosis: Methicillin susceptible Staphylococcus aureus infection as the cause of diseases classified elsewhere[ICD10: B95.61] Diagnosis: Methicillin susceptible Staphylococcus aureus infection, unspecified site[ICD10: A49.01] Alis Spring MD, [facility] CPT-4: 25843 09/09/2015 ([id number]) 04555 EST. P ATIENT, LEVEL III Diagnosis: Dermatophytosis, unspecified[ICD10: B35.9] Diagnosis: Rash and other nonspecific skin eruption[ICD10: R21] Scarlett Spring MD, [facility] CPT-4: 81609 08/28/2015 ([id number]) 36344 EST. P ATIENT, LEVEL IV Diagnosis: Essential (primary) hypertension[ICD10: I10] Diagnosis: Gastro-esophageal reflux disease without esophagitis[ICD10: K21.9] Diagnosis: Other dorsalgia[ICD10: M54.89] Scarlett Spring MD, [facility] CPT-4: 19228 07/09/2015 ([id number]) [facility] , [facility] - LEVEL 4 Diagnosis: ESSENTIAL HYPERTENSION[ICD9: 401.9] Diagnosis: Osteoporosis[ICD9: 733.00] Diagnosis: Back pain[ICD9: 724.5] Diagnosis: Insomnia[ICD9: 780.52] Diagnosis: ESOPHAGEAL REFLUX[ICD9: 530.81] [facility] CPT-4: 34158 03/06/2015 Plan of Care Planned Activity Notes C odes Status Date Visit Plan: Hypertension - uncontro lled - [...] current treatment 10/13/2018 Appointment: Alis Muhammad WPtel: [address] [place], [place] [id number] (15 min) Moderate 10/13/2018 Patient Education: Patient [...] Ua 09/15/2018 Appointment: Alis Muhammad WPtel: [phone] [phone] (30 min) Complex 09/15/2018 Patient Education: Patient [...] Alis Muhammad WPtel: [phone] (30 min) Complex 08/15/2018 Patient Education: Patient Medication Summary Completed 08/15/2018 Patient Education: Back Pain Completed 08/15/2018 Visit Plan: HTN-onofre induced cough-s top lisinopril -start losartan -monitor blood pressure and follow up in 2 weeks Low back pain-xray lumbar spine and refer for PT 08/01/2018 Appointment: Alis Muhamamd WPtel: [phone] [phone] (15 min) Moderate 08/01/2018 Patient Education: Patient Medication Summary Completed 08/01/2018 Patient Education: Back Pain Completed 08/01/2018 Care Plan: X-RAY EXAM L-S SPINE 2/3 VWS LOINC : 11519-8 Pending 08/01/2018 Visit Plan: Hypertension - well [...] shot today. 04/20/2018 Appointment: Scarlett Spring WPtel: [phone] [facility] (15 min) Moderate 04/20/2018 Patient Education: [...] care surrogate. 02/09/2018 Appointment: Kassandra Argueta WPtel: [phone] [facility] [facility] - Annual Wellness Visit 02/09/2018 [...] night. 12/16/2017 App[facility]ment[phone] ([facility] min) Moderate 12/16/2017 Patient Education: Patient [...] uncontrolled. 08/23/2017 Appointment: [phone] (15 min) Moderate 08/23/2017 Patient Education: Patient [...] cardiology 02/03/2017 Appointment: Kassandra Argueta WPtel: [phone] [facility] [facility] - Annual Wellness Visit 02/03/2017 [...] home. 02/02/2017 Appointment: Scarlett Spring WPtel: [phone] [facility] (15 min) Moderate 02/02/2017 Patient Education: [...] improve. 11/26/2016 Appointment: [phone] (30 min) Complex 11/26/2016 Patient Education: [...] Spring WPtel: [facility] [place] (15 min) Moderate 10/07/2016 Patient Education: Patient Medication Summary Completed 10/07/2016 Patient Education: Obesity Completed 10/07/2016 Patient Education: Hypertension Completed 10/07/2016 Care Plan: VASCULAR STUDY Pending 10/04/2016 Care Plan: X-RAY EXAM OF KNEE 3 [facility] : 65211-6 Pending 10/04/2016 Visit Plan: Hypertension - well [...] for paroxetine 09/16/2016 Appointment: Scarlett Spring WPtel: [address] [place], [place] [address] [place] (15 min) Moderate 09/16/2016 Patient Education: [...] not improve. 09/07/2016 Appointment: Kassandra Argueta WPtel: [facility] [place] (10 min) Simple 09/07/2016 Patient [...] order 04/08/2016 Appointment: Scar[facility] Spring [facility]el[phone] (15 min) Moderate 04/08/2016 Patient [...] 10 days. 03/05/2016 Appointment: Scar[facility] Spring [facility]Ptel[phone] [place] (15 min) Moderate 03/05/2016 [...] patient 12/04/2015 Appointment: Scarlett Spring WPtel: [phone] [facility] [place] (15 min) Moderate 12/04/2015 Patient [...] spray. 11/18/2015 Appointment: Scar[facility] Spring [facility]Ptel[phone] (15 min) Moderate 11/18/2015 Patient Education: Patient Medication Summary Completed 11/18/2015 Patient Education: Obesity Completed 11/18/2015 Patient Education: Hypertension Completed 11/18/2015 Appointment: Scarlett Spring WPtel: [facility] (15 min) Moderate 11/07/2015 Visit [...] Visit Plan: MSSA of groin and under dxeomib-[id number]-tpvtzr bactrim and call if rash does not completely resolve 09/09/2015 Appointment: (15 min) Moderate 09/09/2015 Patient Education: Patient Medication Summary Completed 09/09/2015 Visit Plan: Rash - dermatophytosis - recommended oral diflucan, topical nystatin cream, rtc in 10 days to assure healing. check of culture - may need to consider treatment with antibiotic depending on the groin culture report. 08/28/2015 Appointment: Scarlett Spring [facility]Ptel[phone] [facility] (15 min) Moderate 08/28/2015 Patient [...] improving. 07/09/2015 Appointment: Scarlett Spring [facility]Ptel[phone] [facility] (15 min) Moderate 07/09/2015 Patient [...] improving. 03/06/2015 Appointment: Scarlett Spring WPtel: [address] [place], [place] [address] [place] (S) New Patient 03/06/2015 Patient Education: [...] changes. anoro samples given to the patient d/c losartan start valsartan 160mg daily increase [...] patient. Low back pain -improved-continue current treatment . Rash - dermatophyt osis - recommended [...] will find out if anyone comes to [place] check UA start probiotic daily . Hypertension [...]
--- OUTSIDE RECORDS SUMMARY | 2020-01-23 14:46 | XMS REPORT | Continuity of Care Document ---
Author Organization Unknown Address Unknown Phone Unavailable Allergies Active Description Code Type Severity Reaction Onset Reported/Identified Relationship to Patient Clinical Status Yes Iodinated Contrast Media - IV Dye [id number] Drug Allergy Mild NAUSEA 04/24/20 07 Yes Iodinated Contrast Media - Oral and [id number] Drug Allergy Mild NAUSEA 04/24/2007 Yes Iodinated Contrast- Oral and IV Dye [id number] Drug Allergy Mild NAUSEA 04/24/2007 Yes penicillin G [id number] Drug Allergy Unknown N/A 04/24/2007 Yes Iodinated Contrast Media [id number] Drug Allergy Mild NAUSEA 11/28/2019 Yes penicillin G [id number] Drug Allergy Mild RASH 11/28/2019 Medications There is no data. 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 07/31/2011 Ot 278.01 MOR BID OBESITY 07/31/2011 Ot 311 DEPRES SIVE DISORDER NEC 07/31/2011 Ot 401.9 HYPE RTENSION NOS 07/31/2011 Ot 414.00 COR ON ATHEROSCLER NOS TYPE VESSEL, NATIV 07/31/2011 Ot 486 PNEUMO CELIO, ORGANISM NOS 07/31/2011 Ot 491.21 OBS TR CHRONIC BRONCHITIS, W (ACUTE) EXAC 07/31/2011 Ot 530.81 ESO PHAGEAL REFLUX 07/31/2011 Ot 780.52 INS OMNIA, UNSPECIFIED 07/31/2011 Ot V15.82 HIS TORY OF TOBACCO USE 07/31/2011 Ot V45.81 AOR TOCORONARY BYPASS 07/31/2011 Ot V85.41 BOD Y MASS INDEX 40.0-44.9, ADULT 12/10/2011 Ot 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 12/10/2011 Ot 278.00 OBE SITY, NOS 12/10/2011 Ot 311 DEPRES SIVE DISORDER NEC 12/10/2011 Ot 401.9 HYPE RTENSION NOS 12/10/2011 Ot 414.00 COR ON ATHEROSCLER NOS TYPE VESSEL, NATIV 12/10/2011 Ot 441.2 THOR ACIC AORTIC ANEURYSM 12/10/2011 Ot 530.81 ESO PHAGEAL REFLUX 12/10/2011 Ot 814.00 FX CARPAL BONE NOS-CLOSE 12/10/2011 Ot 816.01 FX MID/PRX PHAL, HAND-CL 12/10/2011 Ot E849.[address]RE[address]/HIGHWAY 12/10/2011 Ot E885.9 FAL L FROM SLIPPING, TRIPPING, OR STUMBLI 12/10/2011 Ot V45.81 AOR TOCORONARY BYPASS 12/10/2011 Ot V85.42 BOD Y MASS INDEX 45.0-49.9, ADULT 12/13/2011 Ot 780.2 SYNC OPE AND COLLAPSE 12/13/2011 Ot 793.19 OTH ER NONSPECIFIC ABNORMAL FINDING OF [place]NE[place] 03/23/2012 Ot 719.43 ANNE-MARIE NT PAIN- FOREARM 03/23/2012 Ot V15.51 PER ANALIA HISTORY OF TRAUMATIC FRACTURE 03/23/2012 Ot V57.21 ENC OUNTER FOR OCCUPATIONAL THERAPY 07/20/2012 Ot 272.4 HYPE RLIPIDEMIA NEC/NOS 07/20/2012 Ot 401.9 HYPE RTENSION NOS 07/20/2012 Ot 785.1 PALP ITATIONS 09/07/2012 Ot 272.4 HYPE RLIPIDEMIA NEC/NOS 09/07/2012 Ot 401.9 HYPE RTENSION NOS 09/07/2012 Ot 414.01 COR ONARY ATHEROSCLEROSIS OF [place] CORON 09/07/2012 Ot 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 00 SPINAL STENOSIS NOS 04/02/2013 BISI WILBURN MD R Ot 724. 2 LUMBAGO 04/06/2013 JOSE POTTER MD Ot 724.2 LUMBAGO 04/06/2013 JOSE POTTER MD Ot 724.3 SCIATICA 10/11/2013 EDD VALLE MD Ot 327.23 OBSTRUCTIVE SLEEP APNEA (ADULT) (PEDIATR 10/11/2013 EDD VALLE MD Ot 401.9 HYPERTENSION NOS 10/11/2013 EDD VALLE MD Ot 414.9 CHR ISCHEMIC HRT DIS NOS 11/01/2014 Ot 441.4 11/01/2014 Ot 733.90 11/01/2014 Ot 959.19 11/01/2014 Ot E000.8 11/01/2014 Ot E927.0 11/02/2014 Ot 441.4 11/23/2014 EDD VALLE MD Ot 733.13 11/23/2014 DED VALLE MD Ot 733.90 12/14/2014 PAMELA JOSHI MD Ot 724.2 12/14/2014 PAMELA JOSHI MD Ot 733.1 3 02/14/2015 MOHSEN MORRIS MD Ot 272. 4 02/14/2015 MOHSEN MORRIS MD Ot 401. 9 02/14/2015 MOHSEN MORRIS MD Ot 414. 00 02/14/2015 MOHSEN MORRIS MD Ot 786. 09 10/13/2015 SHEILA NARAYANAN APRN Ot I50 .9 HEART FAILURE, UNSPECIFIED 10/13/2015 SHEILA NARAYANAN APRN Ot R60 .0 LOCALIZED EDEMA 10/13/2015 SHEILA NARAYANAN APRN Ot Z95 .1 PRESENCE OF AORTOCORONARY BYPASS GRAFT 10/15/2015 SHEILA NARAYANAN APRN Ot I50 .9 10/15/2015 SHEILA NARAYANAN MATERIALS COORDINATOR Ot R60 .0 10/15/2015 SHEILA NARAYANAN MATERIALS COORDINATOR Ot Z95 .1 02/05/2016 MEDINA-IVONE PA, MARU K Ot I71.4 ABDOMINAL AORTIC ANEURYSM, WITHOUT RUPTU 02/05/2016 MEDINA-IVONE PA, MARU K Ot I10 ESSENTIAL (PRIMARY) HYPERTENSION 02/05/2016 MEDINA-IVONE PA, MARU K Ot I25.10 ATHSCL HEART DISEASE OF [place] CORONARY 02/05/2016 MEDINA-IVONE PA, MARU K Ot I71.4 ABDOMINAL AORTIC ANEURYSM, WITHOUT RUPTU 02/05/2016 MEDINA-IVONE PA, MARU K Ot R07.89 OTHER CHEST PAIN 02/10/2016 MEDINA-IVONE PA, MARU K Ot I10 ESSENTIAL (PRIMARY) HYPERTENSION 02/10/2016 MEDINA-IVONE PA, MARU K Ot I25.10 ATHSCL HEART DISEASE OF [place] CORONARY 02/10/2016 MEDINA-IVONE PA, MARU K Ot I71.4 ABDOMINAL AORTIC ANEURYSM, WITHOUT RUPTU 02/10/2016 MEDINA-IVONE PA, MARU K Ot R07.89 OTHER CHEST PAIN 02/10/2016 MEDINA-IVONE PA, MARU K Ot I71.4 ABDOMINAL AORTIC ANEURYSM, WITHOUT RUPTU 02/10/2016 MEDINA-IVONE PA, MARU K Ot I10 ESSENTIAL (PRIMARY) HYPERTENSION 02/10/2016 MEDINA-IVONE PA, MARU K Ot I25.10 ATHSCL HEART DISEASE OF [place] CORONARY 02/10/2016 MEDINA-IVONE PA, MARU K Ot I71.4 ABDOMINAL AORTIC ANEURYSM, WITHOUT RUPTU 02/10/2016 MEDINA-IVONE PA, MARU K Ot R07.89 OTHER CHEST PAIN 02/25/2016 MEDINA-IVONE PA, MARU K Ot I10 ESSENTIAL (PRIMARY) HYPERTENSION 02/25/2016 MEDINA-IVONE PA, MARU K Ot I25.10 ATHSCL HEART DISEASE OF [place] CORONARY 02/25/2016 MEDINA-IVONE PA, MARU K Ot I71.4 ABDOMINAL AORTIC ANEURYSM, WITHOUT RUPTU 02/25/2016 MEDINA-IVONE PA, MARU K Ot R07.89 OTHER CHEST PAIN 03/04/2016 MEDINA-IVONE PA, MARU K Ot I10 ESSENTIAL (PRIMARY) HYPERTENSION 03/04/2016 VIKTOR REBOLLEDO, MARU Moore Ot I25.10 ATHSCL HEART DISEASE OF [place] CORONARY 03/04/2016 VIKTOR REBOLLEDO, MARU Oscar Ot I71.4 ABDOMINAL AORTIC ANEURYSM, WITHOUT RUPTU 03/04/2016 VIKTOR REBOLLEDO, MARU Oscar Ot R07.89 OTHER CHEST PAIN 03/05/2016 VIKTOR REBOLLEDO, MARU K Ot I10 ESSENTIAL (PRIMARY) HYPERTENSION 03/05/2016 VIKTOR REBOLLEDO, MARU Moore Ot I25.10 ATHSCL HEART DISEASE OF [place] CORONARY 03/05/2016 VIKTOR REBOLLEDO, MARU K Ot I71.4 ABDOMINAL AORTIC ANEURYSM, WITHOUT RUPTU 03/05/2016 VIKTOR REBOLLEDO, MARU K Ot R07.89 OTHER CHEST PAIN 03/06/2016 VIKTOR REBOLLEDO, MARU K Ot I10 ESSENTIAL (PRIMARY) HYPERTENSION 03/06/2016 VIKTOR REBOLLEDO, MARU K Ot I25.10 ATHSCL HEART DISEASE OF [place] CORONARY 03/06/2016 VIKTOR REBOLLEDO, MARU Moore Ot I71.4 ABDOMINAL AORTIC ANEURYSM, WITHOUT RUPTU 03/06/2016 VIKTOR REBOLLEDO, MARU Moore Ot R07.89 OTHER CHEST PAIN 03/17/2016 VIKTOR REBOLLEDO, MARU Moore Ot I10 ESSENTIAL (PRIMARY) HYPERTENSION 03/17/2016 VIKTOR REBOLLEDO, MARU Moore Ot I25.10 ATHSCL HEART DISEASE OF [place] CORONARY 03/17/2016 VIKTOR REBOLLEDO, MARU Moore Ot I71.4 ABDOMINAL AORTIC ANEURYSM, WITHOUT RUPTU 03/17/2016 VIKTOR REBOLLEDO, MARU K Ot R07.89 OTHER CHEST PAIN 03/26/2016 Ot 401.9 HYPE RTENSION NOS 03/26/2016 Ot 427.31 ATR IAL FIBRILLATION 03/26/2016 Ot 780.60 FEV ER, UNSPECIFIED 03/26/2016 Ot 786.2 COUGH 04/25/2016 Ot 401.9 HYPE RTENSION NOS 04/25/2016 Ot 427.31 ATR IAL FIBRILLATION 04/25/2016 Ot 780.60 FEV ER, UNSPECIFIED 04/25/2016 Ot 786.2 COUGH 06/25/2016 Ot 401.9 HYPE RTENSION NOS 06/25/2016 Ot 427.31 ATR IAL FIBRILLATION 06/25/2016 Ot 780.60 FEV ER, UNSPECIFIED 06/25/2016 Ot 786.2 COUGH 08/01/2016 DEMETRIS SCHAFER, RICK Alaniz Ot I10 ESSENTIAL (PRIMARY) HYPERTENSION 08/01/2016 DEMETRIS SCHAFER, RICK Alaniz Ot R07. 89 OTHER CHEST PAIN 08/01/2016 DEMETRIS SCHAFER, RICK Alaniz Ot R07. 9 CHEST PAIN, UNSPECIFIED 08/01/2016 DEMETRIS SCHAFER, RICK Alaniz Ot R11. 0 NAUSEA 08/01/2016 DEMETRIS SCHAFER, RICK Alaniz Ot Z79. 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, TYPE II OR UNSPEC TY 08/02/2016 Ot 272.4 HYPE RLIPIDEMIA NEC/NOS 08/02/2016 Ot 401.9 HYPE RTENSION NOS 08/02/2016 Ot 414.01 COR ONARY ATHEROSCLEROSIS OF [place] CORON 08/02/2016 Ot 272.4 HYPE RLIPIDEMIA NEC/NOS 08/02/2016 Ot 272.4 HYPE RLIPIDEMIA NEC/NOS 08/02/2016 Ot 401.9 HYPE RTENSION NOS 08/02/2016 Ot 414.00 COR ON ATHEROSCLER NOS TYPE VESSEL, NATIV 08/02/2016 Ot 272.4 HYPE RLIPIDEMIA NEC/NOS 08/02/2016 Ot 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 08/02/2016 Ot 397.0 TRIC USPID VALVE DISEASE 08/02/2016 Ot 401.9 HYPE RTENSION NOS 08/02/2016 Ot 414.00 COR ON ATHEROSCLER NOS TYPE VESSEL, NATIV 08/02/2016 Ot 416.8 CHR PULMON HEART DIS NEC 08/02/2016 Ot 429.3 CARD IOMEGALY 08/02/2016 Ot 784.2 SWEL LING IN HEAD NECK 08/02/2016 Ot 784.42 DYS PHONIA 08/02/2016 Ot 401.9 HYPE RTENSION NOS 08/02/2016 Ot 414.00 COR ON ATHEROSCLER NOS TYPE VESSEL, NATIV 08/02/2016 Ot 785.1 PALP ITATIONS 08/02/2016 Ot 786.09 RES PIRATORY ABNORM NEC 08/02/2016 Ot 272.4 HYPE RLIPIDEMIA NEC/NOS 08/02/2016 Ot 401.9 HYPE RTENSION NOS 08/02/2016 Ot 414.01 COR ONARY ATHEROSCLEROSIS OF [place] CORON 08/02/2016 EDD VALLE MD Ot V76.12 [...] SECUNDUM ATRIAL SEPT DEF 08/02/2016 Ot 441.4 ABDO M AORTIC ANEURYSM 08/02/2016 Ot 733.90 BON E CARTILAGE DIS NOS 08/02/2016 Ot 959.19 OTH INJURY OF OTHER SITES OF TRUNK 08/02/2016 Ot E000.8 OTH ER EXTERNAL CAUSE STATUS 08/02/2016 Ot E927.0 OVE REXERTION FROM SUDDEN STRENUOUS MOVEM 08/02/2016 Ot 441.4 ABDO M AORTIC ANEURYSM 08/02/2016 MADELYN SCHAFER, PAMELA Aragon Ot 724.2 LUMBAGO 08/02/2016 PAMELA JOSHI MD Ot 733.1 3 PATHOLOGIC FRACTURE, VERTEBRAE 08/02/2016 TORI SCHAFER, EDD Rojo Ot 733.13 PATHOLOGIC FRACTURE, VERTEBRAE 08/02/2016 TORI SCHAFER, EDD Rojo Ot 733.90 BONE CARTILAGE DIS NOS 08/02/2016 ALEXANDRA SCHAFER, MOHSEN Aragon Ot 272. 4 HYPERLIPIDEMIA NEC/NOS 08/02/2016 MOHSEN MORRIS MD Ot 401. 9 HYPERTENSION NOS 08/02/2016 MOHSEN MORRIS MD Ot 414. 00 CORON ATHEROSCLER NOS TYPE VESSEL, NATIV 08/02/2016 MOHSEN MORRIS MD Ot 786. 09 RESPIRATORY ABNORM NEC 08/02/2016 MARU TAVERAS Ot I10 ESSENTIAL (PRIMARY) HYPERTENSION 08/02/2016 MARU TAVERAS Ot I25.10 ATHSCL HEART DISEASE OF [place] CORONARY 08/02/2016 MARU TAVERAS Ot I71.4 ABDOMINAL AORTIC ANEURYSM, WITHOUT RUPTU 08/02/2016 MARU TAVERAS Ot R07.89 OTHER CHEST PAIN 08/02/2016 MARU TAVERAS Ot I10 ESSENTIAL (PRIMARY) HYPERTENSION 08/02/2016 MARU TAVERAS Ot I25.10 ATHSCL HEART DISEASE OF [place] CORONARY 08/02/2016 MARU TAVERAS Ot I71.4 ABDOMINAL AORTIC ANEURYSM, WITHOUT RUPTU 08/02/2016 MARU TAVERAS Ot R07.89 OTHER CHEST PAIN 08/02/2016 MARU TAVERAS Ot I10 ESSENTIAL (PRIMARY) HYPERTENSION 08/02/2016 MARU TAVERAS Ot I25.10 ATHSCL HEART DISEASE OF [place] CORONARY 08/02/2016 MARU TAVERAS Ot I71.4 ABDOMINAL AORTIC ANEURYSM, WITHOUT RUPTU 08/02/2016 MARU TAVERAS Ot R07.89 OTHER CHEST PAIN 08/03/2016 DEMETRIS SCHAFER, RICK Alaniz Ot I10 ESSENTIAL (PRIMARY) HYPERTENSION 08/03/2016 RICK WILLSON MD Ot R07. 89 OTHER CHEST PAIN 08/03/2016 RICK WILLSON MD Ot R07. 9 CHEST PAIN, UNSPECIFIED 08/03/2016 DEMETRIS SCHAFER, RICK Alaniz Ot R11. 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, TYPE II OR UNSPEC TY 08/25/2016 Ot 272.4 HYPE RLIPIDEMIA NEC/NOS 08/25/2016 Ot 401.9 HYPE RTENSION NOS 08/25/2016 Ot 414.01 COR ONARY ATHEROSCLEROSIS OF [place] CORON 08/25/2016 Ot 272.4 HYPE RLIPIDEMIA NEC/NOS 08/25/2016 Ot 272.4 HYPE RLIPIDEMIA NEC/NOS 08/25/2016 Ot 401.9 HYPE RTENSION NOS 08/25/2016 Ot 414.00 COR ON ATHEROSCLER NOS TYPE VESSEL, NATIV 08/25/2016 Ot 272.4 HYPE RLIPIDEMIA NEC/NOS 08/25/2016 Ot 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 08/25/2016 Ot 397.0 TRIC USPID VALVE DISEASE 08/25/2016 Ot 401.9 HYPE RTENSION NOS 08/25/2016 Ot 414.00 COR ON ATHEROSCLER NOS TYPE VESSEL, NATIV 08/25/2016 Ot 416.8 CHR PULMON HEART DIS NEC 08/25/2016 Ot 429.3 CARD IOMEGALY 08/25/2016 Ot 784.2 SWEL LING IN HEAD NECK 08/25/2016 Ot 784.42 DYS PHONIA 08/25/2016 Ot 401.9 HYPE RTENSION NOS 08/25/2016 Ot 414.00 COR ON ATHEROSCLER NOS TYPE VESSEL, NATIV 08/25/2016 Ot 785.1 PALP ITATIONS 08/25/2016 Ot 786.09 RES PIRATORY ABNORM NEC 08/25/2016 Ot 272.4 HYPE RLIPIDEMIA NEC/NOS 08/25/2016 Ot 401.9 HYPE RTENSION NOS 08/25/2016 Ot 414.01 COR ONARY ATHEROSCLEROSIS OF [place] CORON 08/25/2016 TORI SCHAFER, EDD Rojo Ot [...] Ot 424.0 MITRAL VALVE DISORDER 08/25/2016 MARU ATVERAS Ot 745.5 SECUNDUM ATRIAL SEPT DEF 08/25/2016 Ot 441.4 ABDO M AORTIC ANEURYSM 08/25/2016 Ot 733.90 BON E CARTILAGE DIS NOS 08/25/2016 Ot 959.19 OTH INJURY OF OTHER SITES OF TRUNK 08/25/2016 Ot E000.8 OTH ER EXTERNAL CAUSE STATUS 08/25/2016 Ot E927.0 OVE REXERTION FROM SUDDEN STRENUOUS MOVEM 08/25/2016 Ot 441.4 ABDO M AORTIC ANEURYSM 08/25/2016 MADELYN SCHAFER, PAMELA Aragon Ot 724.2 LUMBAGO 08/25/2016 MADELYN SCHAFER, PAMELA J Ot 733.1 3 PATHOLOGIC FRACTURE, VERTEBRAE 08/25/2016 EDD VALLE MD Ot 733.13 PATHOLOGIC FRACTURE, VERTEBRAE 08/25/2016 EDD VALLE MD Ot 733.90 BONE CARTILAGE DIS NOS 08/25/2016 MOHSEN MORRIS MD Ot 272. 4 HYPERLIPIDEMIA NEC/NOS 08/25/2016 MOHSEN MORRIS MD Ot 401. 9 HYPERTENSION NOS 08/25/2016 MOHSEN MORRIS MD Ot 414. 00 CORON ATHEROSCLER NOS TYPE VESSEL, NATIV 08/25/2016 ALEXANDRA SCHAFER, MOHSEN Aragon Ot 786. 09 RESPIRATORY ABNORM NEC 08/25/2016 MARU TAVERAS K Ot I10 ESSENTIAL (PRIMARY) HYPERTENSION 08/25/2016 VIKTOR REBOLLEDO, MARU K Ot I25.10 ATHSCL HEART DISEASE OF [place] CORONARY 08/25/2016 MEDINA-IVONE REBOLLEDO, MARU K Ot I71.4 ABDOMINAL AORTIC ANEURYSM, WITHOUT RUPTU 08/25/2016 VIKTOR REBOLLEDO, MARU K Ot R07.89 OTHER CHEST PAIN 08/25/2016 MEDINA-IVONE REBOLLEDO, MARU K Ot I10 ESSENTIAL (PRIMARY) HYPERTENSION 08/25/2016 ADAM-IOVNE REBOLLEDO, MARU K Ot I25.10 ATHSCL HEART DISEASE OF [place] CORONARY 08/25/2016 VIKTOR REBOLLEDO MARU K Ot I71.4 ABDOMINAL AORTIC ANEURYSM, WITHOUT RUPTU 08/25/2016 VIKTOR REBOLLEDO MARU K Ot R07.89 OTHER CHEST PAIN 08/25/2016 MEDINA-IVONE PA, MARU K Ot I10 ESSENTIAL (PRIMARY) HYPERTENSION 08/25/2016 MEDINA-IVONE REBOLLEDO, MARU K Ot I25.10 ATHSCL HEART DISEASE OF [place] CORONARY 08/25/2016 MEDINA-IVONE REBOLLEDO, MARU K Ot I71.4 ABDOMINAL AORTIC ANEURYSM, WITHOUT RUPTU 08/25/2016 MEDINA-IVONE REBOLLEDO, MARU K Ot R07.89 OTHER CHEST PAIN 08/26/2016 MOHSEN MORRIS MD Ot E78. 5 HYPERLIPIDEMIA, UNSPECIFIED 08/26/2016 MOHSEN MORRIS MD Ot I10 ESSENTIAL (PRIMARY) HYPERTENSION 08/26/2016 MOHSEN MORRIS MD Ot I25. 10 ATHSCL HEART DISEASE OF [place] CORONARY 08/26/2016 MOHSEN MORRIS MD Ot I27. 2 OTHER SECONDARY PULMONARY HYPERTENSION 08/26/2016 MOHSEN MORRIS MD Ot I71. 4 ABDOMINAL AORTIC ANEURYSM, WITHOUT RUPTU 08/26/2016 MOHSEN MORRIS MD Ot K22. 5 DIVERTICULUM OF ESOPHAGUS, ACQUIRED 08/26/2016 MOHSEN MORRIS MD Ot K29. 70 GASTRITIS, UNSPECIFIED, WITHOUT BLEEDING 08/26/2016 MOHSEN MORRIS MD Ot Q21. 1 ATRIAL SEPTAL DEFECT 08/26/2016 MOHSEN MORRIS MD Ot R07. 89 OTHER CHEST PAIN 08/26/2016 MOHSEN MORRIS MD Ot Z79.899 OTHER NURSING HOME (CURRENT) DRUG THERAPY 08/26/2016 MOHSEN MORRIS MD Ot Z95. 1 PRESENCE OF AORTOCORONARY BYPASS GRAFT 09/02/2016 MOHSEN MORRIS MD Ot E78. 5 HYPERLIPIDEMIA, UNSPECIFIED 09/02/2016 MOHSEN MORRIS MD Ot I10 ESSENTIAL (PRIMARY) HYPERTENSION 09/02/2016 MOHSEN MORRIS MD Ot I25. 10 ATHSCL HEART DISEASE OF [place] CORONARY 09/02/2016 MOHSEN MORRIS MD Ot I27. 2 OTHER SECONDARY PULMONARY HYPERTENSION 09/02/2016 MOHSEN MORRIS MD Ot I71. 4 ABDOMINAL AORTIC ANEURYSM, WITHOUT RUPTU 09/02/2016 MOHSEN MORRIS MD Ot K22. 5 DIVERTICULUM OF ESOPHAGUS, ACQUIRED 09/02/2016 MOHSEN MORRIS MD Ot K29. 70 GASTRITIS, UNSPECIFIED, WITHOUT BLEEDING 09/02/2016 MOHSEN MORRIS MD Ot Q21. 1 ATRIAL SEPTAL DEFECT 09/02/2016 MOHSEN MORRIS MD Ot R07. 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 1 PRESENCE OF AORTOCORONARY BYPASS GRAFT 09/08/2016 AGUSTIN HOWELL MATERIALS COORDINATOR Ot M79.605 PAIN IN LEFT LEG 09/09/2016 AGUSTIN HOWELL APRN Ot M25.562 PAIN IN LEFT KNEE 09/09/2016 AGUSTIN HOWELL MATERIALS COORDINATOR Ot M79.605 PAIN IN LEFT LEG 09/13/2016 AGUSTIN HOWELL APRN Ot M25.562 PAIN IN LEFT KNEE 09/13/2016 AGUSTIN HOWELL APRN Ot M79.605 PAIN IN LEFT LEG 09/29/2016 MARU TAVERAS Ot E78.2 MIXED HYPERLIPIDEMIA 09/29/2016 MARU TAVERAS Ot G47.33 OBSTRUCTIVE SLEEP APNEA (ADULT) (PEDIATR 09/29/2016 MARU TAVERAS Ot I10 ESSENTIAL (PRIMARY) HYPERTENSION 09/29/2016 MARU TAVERAS Ot I25.10 ATHSCL HEART DISEASE OF [place] CORONARY 09/30/2016 AGUSTIN HOWELL MATERIALS COORDINATOR Ot M25.562 PAIN IN LEFT KNEE 09/30/2016 AGUSTIN HOWELL MATERIALS COORDINATOR Ot M79.605 PAIN IN LEFT LEG 10/22/2016 MARU TAVERAS Ot E78.2 MIXED HYPERLIPIDEMIA 10/22/2016 MARU TAVERAS Ot G47.33 OBSTRUCTIVE SLEEP APNEA (ADULT) (PEDIATR 10/22/2016 MARU TAVERAS Ot I10 ESSENTIAL (PRIMARY) HYPERTENSION 10/22/2016 MARU TAVERAS Ot I25.10 ATHSCL HEART DISEASE OF [place] CORONARY 10/24/2016 Ot 401.9 HYPE RTENSION NOS 10/24/2016 Ot 427.31 ATR IAL FIBRILLATION 10/24/2016 Ot 780.60 FEV ER, UNSPECIFIED 10/24/2016 Ot 786.2 COUGH 11/23/2016 Ot 401.9 HYPE RTENSION NOS 11/23/2016 Ot 427.31 ATR IAL FIBRILLATION 11/23/2016 Ot 780.60 FEV ER, UNSPECIFIED 11/23/2016 Ot 786.2 COUGH 12/23/2016 Ot 272.4 HYPE RLIPIDEMIA NEC/NOS 12/23/2016 Ot 272.4 HYPE RLIPIDEMIA NEC/NOS 12/23/2016 Ot 401.9 HYPE RTENSION NOS 12/23/2016 Ot 414.00 COR ON ATHEROSCLER NOS TYPE VESSEL, NATIV 12/23/2016 Ot 272.4 HYPE RLIPIDEMIA NEC/NOS 12/23/2016 Ot 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 12/23/2016 Ot 397.0 TRIC USPID VALVE DISEASE 12/23/2016 Ot 401.9 HYPE RTENSION NOS 12/23/2016 Ot 414.00 COR ON ATHEROSCLER NOS TYPE VESSEL, NATIV 12/23/2016 Ot 416.8 CHR PULMON HEART DIS NEC 12/23/2016 Ot 429.3 CARD IOMEGALY 12/23/2016 Ot 784.2 SWEL LING IN HEAD NECK 12/23/2016 Ot 784.42 DYS PHONIA 12/23/2016 Ot 401.9 HYPE RTENSION NOS 12/23/2016 Ot 414.00 COR ON ATHEROSCLER NOS TYPE VESSEL, NATIV 12/23/2016 Ot 785.1 PALP ITATIONS 12/23/2016 Ot 786.09 RES PIRATORY ABNORM NEC 12/23/2016 Ot 272.4 HYPE RLIPIDEMIA NEC/NOS 12/23/2016 Ot 401.9 HYPE RTENSION NOS 12/23/2016 Ot 414.01 COR ONARY ATHEROSCLEROSIS OF [place] CORON 12/23/2016 EDD VALLE MD Ot V76.12 [...] SECUNDUM ATRIAL SEPT DEF 12/23/2016 Ot 441.4 ABDO M AORTIC ANEURYSM 12/23/2016 Ot 733.90 BON E CARTILAGE DIS NOS 12/23/2016 Ot 959.19 OTH INJURY OF OTHER SITES OF TRUNK 12/23/2016 Ot E000.8 OTH ER EXTERNAL CAUSE STATUS 12/23/2016 Ot E927.0 OVE REXERTION FROM SUDDEN STRENUOUS MOVEM 12/23/2016 Ot 441.4 ABDO M AORTIC ANEURYSM 12/23/2016 MADELYN SCHAFER, PAMELA Aragon Ot 724.2 LUMBAGO 12/23/2016 MADELYN SCHAFER, PAMELA Aragon Ot 733.1 3 PATHOLOGIC FRACTURE, VERTEBRAE 12/23/2016 TORI SCHAFER, EDD Rojo Ot 733.13 PATHOLOGIC FRACTURE, VERTEBRAE 12/23/2016 TORI SCHAFER, EDD Rojo Ot 733.90 BONE CARTILAGE DIS NOS 12/23/2016 MOHSEN MORRIS MD Ot 272. 4 HYPERLIPIDEMIA NEC/NOS 12/23/2016 MOHSEN MORRIS MD Ot 401. 9 HYPERTENSION NOS 12/23/2016 MOHSEN MORRIS MD Ot 414. 00 CORON ATHEROSCLER NOS TYPE VESSEL, NATIV 12/23/2016 MOHSEN MORRIS MD Ot 786. 09 RESPIRATORY ABNORM NEC 12/23/2016 MARU TAVERAS Ot I10 ESSENTIAL (PRIMARY) HYPERTENSION 12/23/2016 MARU TAVERAS Ot I25.10 ATHSCL HEART DISEASE OF [place] CORONARY 12/23/2016 MARU TAVERAS Ot I71.4 ABDOMINAL AORTIC ANEURYSM, WITHOUT RUPTU 12/23/2016 MARU TAVERAS Ot R07.89 OTHER CHEST PAIN 12/23/2016 MARU TAVERAS Ot I10 ESSENTIAL (PRIMARY) HYPERTENSION 12/23/2016 MARU TAVERAS Ot I25.10 ATHSCL HEART DISEASE OF [place] CORONARY 12/23/2016 MARU TAVERAS Ot I71.4 ABDOMINAL AORTIC ANEURYSM, WITHOUT RUPTU 12/23/2016 MARU TAVERAS Ot R07.89 OTHER CHEST PAIN 12/23/2016 MARU TAVERAS Ot I10 ESSENTIAL (PRIMARY) HYPERTENSION 12/23/2016 MARU TAVERAS Ot I25.10 ATHSCL HEART DISEASE OF [place] CORONARY 12/23/2016 MARU TAVERAS Ot I71.4 ABDOMINAL AORTIC ANEURYSM, WITHOUT RUPTU 12/23/2016 MARU TAVERAS Ot R07.89 OTHER CHEST PAIN 12/23/2016 AGUSTIN HOWELL APRN Ot M25.562 PAIN IN LEFT KNEE 12/23/2016 AGUSTIN HOWELL MATERIALS COORDINATOR Ot M79.605 PAIN IN LEFT LEG 12/23/2016 VIKTOR REBOLLEDO, MARU Oscar Ot E78.2 MIXED HYPERLIPIDEMIA 12/23/2016 VIKTOR REBOLLEDO, MARU Oscar Ot G47.33 OBSTRUCTIVE SLEEP APNEA (ADULT) (PEDIATR 12/23/2016 VIKTOR REBOLLEDO, MARU K Ot I10 ESSENTIAL (PRIMARY) HYPERTENSION 12/23/2016 VIKTOR REBOLLEDO, MARU K Ot I25.10 ATHSCL HEART DISEASE OF [place] CORONARY 02/16/2017 VIKTOR REBOLLEDO, MARU K Ot E78.2 MIXED HYPERLIPIDEMIA 02/16/2017 VIKTOR REBOLLEDO, MARU K Ot I10 ESSENTIAL (PRIMARY) HYPERTENSION 02/16/2017 VIKTOR REBOLLEDO, MARU K Ot I25.10 ATHSCL HEART DISEASE OF [place] CORONARY 02/16/2017 VIKTOR REBOLLEDO, MARU K Ot R00.2 PALPITATIONS 02/23/2017 STEFFI SCHAFER, BIBIANA Roach Ot I49.9 CARDIAC ARRHYTHMIA, UNSPECIFIED 02/23/2017 STEFFI SCHAFER, BIBIANA Roach Ot R53.83 OTHER FATIGUE 03/03/2017 VIKTOR REBOLLEDO, MARU K Ot E78.2 MIXED HYPERLIPIDEMIA 03/03/2017 VIKTOR REBOLLEDO, MARU K Ot I10 ESSENTIAL (PRIMARY) HYPERTENSION 03/03/2017 VIKTOR REBOLLEDO, MARU K Ot I25.10 ATHSCL HEART DISEASE OF [place] CORONARY 03/03/2017 AYDEN TAVERASTH K Ot R00.2 PALPITATIONS 03/04/2017 VIKTOR REBOLLEDO, MARU K Ot E78.2 MIXED HYPERLIPIDEMIA 03/04/2017 VIKTOR REBOLLEDO, MARU K Ot I10 ESSENTIAL (PRIMARY) HYPERTENSION 03/04/2017 VIKTOR REBOLLEDO, MARU K Ot I25.10 ATHSCL HEART DISEASE OF [place] CORONARY 03/04/2017 ALE TAVERASDITH K Ot R00.2 PALPITATIONS 03/10/2017 ALEXANDRA SCHAFER, MOHSEN Aragon Ot E78. 2 MIXED HYPERLIPIDEMIA 03/10/2017 ALEXANDRA SCHAFER, MOHSEN Aragon Ot I10 ESSENTIAL (PRIMARY) HYPERTENSION 03/10/2017 ALEXANDRA SCHAFER, MOHSEN Aragon Ot I25. 10 ATHSCL HEART DISEASE OF [place] CORONARY 03/10/2017 MOHSEN MORRIS MD Ot I34. 0 NONRHEUMATIC MITRAL (VALVE) INSUFFICIENC 03/10/2017 MOHSEN MORRIS MD Ot I48. 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 1 PRESENCE OF AORTOCORONARY BYPASS GRAFT 03/23/2017 MOHSEN MORRIS MD Ot E78. 2 MIXED HYPERLIPIDEMIA 03/23/2017 MOHSEN MORRIS MD Ot I10 ESSENTIAL (PRIMARY) HYPERTENSION 03/23/2017 MOHSEN MORRIS MD Ot I25. 10 ATHSCL HEART DISEASE OF [place] CORONARY 03/23/2017 MOHSEN MORRIS MD Ot I34. 0 NONRHEUMATIC MITRAL (VALVE) INSUFFICIENC 03/23/2017 MOHSEN MORRIS MD Ot I48. 0 PAROXYSMAL ATRIAL FIBRILLATION 03/23/2017 MOHSEN MORRIS MD Ot Z79. 01 NURSING HOME (CURRENT) USE OF ANTICOAGULANT 03/23/2017 MOHSEN MORRIS MD Ot Z79.899 OTHER SEAMING MACHINE OPERATOR (CURRENT) DRUG THERAPY 03/23/2017 MOHSEN MORRIS MD Ot Z95. 1 PRESENCE OF AORTOCORONARY BYPASS GRAFT 03/26/2017 Ot 401.9 HYPE RTENSION NOS 03/26/2017 Ot 427.31 ATR IAL FIBRILLATION 03/26/2017 Ot 780.60 FEV ER, UNSPECIFIED 03/26/2017 Ot 786.2 COUGH 04/20/2017 SHEILA NARAYANAN APRN Ot E78.00 PURE HYPERCHOLESTEROLEMIA, UNSPECIFIED 04/20/2017 SHEILA NARAYANAN APRN Ot F32 .9 MAJOR DEPRESSIVE DISORDER, SINGLE EPISOD 04/20/2017 SHEILA NARAYANAN APRN Ot F41 .9 ANXIETY DISORDER, UNSPECIFIED 04/20/2017 SHEILA NARAYANAN APRN Ot G47.30 SLEEP APNEA, UNSPECIFIED 04/20/2017 SHEILA NARAYANAN APRN Ot I10 ESSENTIAL (PRIMARY) HYPERTENSION 04/20/2017 SHEILA NARAYANAN APRN Ot I48.91 UNSPECIFIED ATRIAL FIBRILLATION 04/20/2017 SHEILA NARAYANAN APRN Ot K21 .9 GASTRO-ESOPHAGEAL REFLUX DISEASE WITHOUT 04/20/2017 SHEILA NARAYANAN APRN Ot M19.90 UNSPECIFIED OSTEOARTHRITIS, UNSPECIFIED 04/20/2017 SHEILA NARAYANAN APRN Ot R06.02 SHORTNESS OF BREATH 04/20/2017 SHEILA NARAYNAAN APRN Ot 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 04/20/2017 SHEILA NARAYANAN APRN Ot Z87.891 PERSONAL HISTORY OF NICOTINE DEPENDENCE 04/20/2017 SHEILA NARAYANAN APRN Ot Z96 .0 PRESENCE OF UROGENITAL IMPLANTS 04/28/2017 MOHSEN MORRIS MD Ot E66. 01 MORBID (SEVERE) OBESITY DUE TO EXCESS CA 04/28/2017 MOHSEN MORRIS MD, Ot E78. 5 HYPERLIPIDEMIA, UNSPECIFIED 04/28/2017 MOHSEN MORRIS MD, Ot I10 ESSENTIAL (PRIMARY) HYPERTENSION 04/28/2017 MOHSEN MORRIS MD, Ot I25. 10 ATHSCL HEART DISEASE OF [place] CORONARY 04/28/2017 MOHSEN MORRIS MD, Ot I48. 0 PAROXYSMAL ATRIAL FIBRILLATION 04/28/2017 MOHSEN MORRIS MD Ot I71. 4 ABDOMINAL AORTIC ANEURYSM, WITHOUT RUPTU 04/28/2017 MOHSEN MORRIS MD Ot Z68. 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 08/26/2017 Ot 397.0 TRIC USPID VALVE DISEASE 08/26/2017 Ot 401.9 HYPE RTENSION NOS 08/26/2017 Ot 414.00 COR ON ATHEROSCLER NOS TYPE VESSEL, NATIV 08/26/2017 Ot 416.8 CHR PULMON HEART DIS NEC 08/26/2017 Ot 429.3 CARD IOMEGALY 08/26/2017 Ot 784.2 SWEL LING IN HEAD NECK 08/26/2017 Ot 784.42 DYS PHONIA 08/26/2017 Ot 401.9 HYPE RTENSION NOS 08/26/2017 Ot 414.00 COR ON ATHEROSCLER NOS TYPE VESSEL, NATIV 08/26/2017 Ot 785.1 PALP ITATIONS 08/26/2017 Ot 786.09 RES PIRATORY ABNORM NEC 08/26/2017 Ot 272.4 HYPE RLIPIDEMIA NEC/NOS 08/26/2017 Ot 401.9 HYPE RTENSION NOS 08/26/2017 Ot 414.01 COR ONARY ATHEROSCLEROSIS OF [place] CORON 08/26/2017 EDD VALLE MD Ot V76.12 [...] SECUNDUM ATRIAL SEPT DEF 08/26/2017 Ot 441.4 ABDO M AORTIC ANEURYSM 08/26/2017 Ot 733.90 BON E CARTILAGE DIS NOS 08/26/2017 Ot 959.19 OTH INJURY OF OTHER SITES OF TRUNK 08/26/2017 Ot E000.8 OTH ER EXTERNAL CAUSE STATUS 08/26/2017 Ot E927.0 OVE REXERTION FROM SUDDEN STRENUOUS MOVEM 08/26/2017 Ot 441.4 ABDO M AORTIC ANEURYSM 08/26/2017 MADELYN SCHAFER, PAMELA Aragon Ot 724.2 LUMBAGO 08/26/2017 MADELYN SCHAFER, PAMELA Aragon Ot 733.1 3 PATHOLOGIC FRACTURE, VERTEBRAE 08/26/2017 TORI SCHAFER, EDD Rojo Ot 733.13 PATHOLOGIC FRACTURE, VERTEBRAE 08/26/2017 EDD VALLE MD Ot 733.90 BONE CARTILAGE DIS NOS 08/26/2017 MOHSEN MORRIS MD Ot 272. 4 HYPERLIPIDEMIA NEC/NOS 08/26/2017 MOHSEN MORRIS MD Ot 401. 9 HYPERTENSION NOS 08/26/2017 MOHSEN MORRIS MD Ot 414. 00 CORON ATHEROSCLER NOS TYPE VESSEL, NATIV 08/26/2017 MOHSEN MORRIS MD Ot 786. 09 RESPIRATORY ABNORM NEC 08/26/2017 MARU TAVERAS Ot I10 ESSENTIAL (PRIMARY) HYPERTENSION 08/26/2017 MARU TAVERAS Ot I25.10 ATHSCL HEART DISEASE OF [place] CORONARY 08/26/2017 MARU TAVERAS Ot I71.4 ABDOMINAL AORTIC ANEURYSM, WITHOUT RUPTU 08/26/2017 MARU TAVERAS Ot R07.89 OTHER CHEST PAIN 08/26/2017 VIKTOR REBOLLEDO, MARU K Ot I10 ESSENTIAL (PRIMARY) HYPERTENSION 08/26/2017 VIKTOR REBOLLEDO, MARU Moore Ot I25.10 ATHSCL HEART DISEASE OF [place] CORONARY 08/26/2017 VIKTOR REBOLLEDO, MARU K Ot I71.4 ABDOMINAL AORTIC ANEURYSM, WITHOUT RUPTU 08/26/2017 VIKTOR REBOLLEDO, MARU K Ot R07.89 OTHER CHEST PAIN 08/26/2017 VIKTOR REBOLLEDO, MARU K Ot I10 ESSENTIAL (PRIMARY) HYPERTENSION 08/26/2017 VIKTOR REBOLLEDO, MARU K Ot I25.10 ATHSCL HEART DISEASE OF [place] CORONARY 08/26/2017 VIKTOR REBOLLEDO, MARU Moore Ot I71.4 ABDOMINAL AORTIC ANEURYSM, WITHOUT RUPTU 08/26/2017 VIKTOR REBOLLEDO, MARU K Ot R07.89 OTHER CHEST PAIN 08/26/2017 AGUSTIN HOWELL MATERIALS COORDINATOR Ot M25.562 PAIN IN LEFT KNEE 08/26/2017 AGUSTIN HOWELL MATERIALS COORDINATOR Ot M79.605 PAIN IN LEFT LEG 08/26/2017 VIKTOR REBOLLEDO, MARU Moore Ot E78.2 MIXED HYPERLIPIDEMIA 08/26/2017 VIKTOR REBOLLEDO, MARU Moore Ot G47.33 OBSTRUCTIVE SLEEP APNEA (ADULT) (PEDIATR 08/26/2017 VIKTOR REBOLLEDO, MARU K Ot I10 ESSENTIAL (PRIMARY) HYPERTENSION 08/26/2017 VIKTOR REBOLLEDO, MARU K Ot I25.10 ATHSCL HEART DISEASE OF [place] CORONARY 08/26/2017 BIBIANA KAPADIA MD Ot I49.9 CARDIAC ARRHYTHMIA, UNSPECIFIED 08/26/2017 BIBIANA KAPADIA MD Ot R53.83 OTHER FATIGUE 08/26/2017 VIKTOR REBOLLEDO, MARU Moore Ot E78.2 MIXED HYPERLIPIDEMIA 08/26/2017 VIKTOR REBOLLEDO, MARU K Ot I10 ESSENTIAL (PRIMARY) HYPERTENSION 08/26/2017 VIKTOR REBOLELDO, MARU K Ot I25.10 ATHSCL HEART DISEASE OF [place] CORONARY 08/26/2017 MARU TAVERAS Ot R00.2 PALPITATIONS 08/26/2017 VIKTOR REBOLLEDO, MARU Moore Ot E78.2 MIXED HYPERLIPIDEMIA 08/26/2017 MARU TAVERAS Ot I10 ESSENTIAL (PRIMARY) HYPERTENSION 08/26/2017 MARU TAVERAS Ot I25.10 ATHSCL HEART DISEASE OF [place] CORONARY 08/26/2017 MARU TAVERAS Ot R00.2 PALPITATIONS 08/27/2017 AMANUEL KIRKPATRICK DOA K Ot E78.00 PURE HYPERCHOLESTEROLEMIA, UNSPECIFIED 08/27/2017 CASIMIRO DO ROSIE K Ot F32.9 MAJOR DEPRESSIVE DISORDER, SINGLE EPISOD 08/27/2017 CASIMIRO DO, ROSIE K Ot F41.9 ANXIETY DISORDER, UNSPECIFIED 08/27/2017 CASIMIRO DO, ROSIE K Ot I10 ESSENTIAL (PRIMARY) HYPERTENSION 08/27/2017 CASIMIRO DO ROSIE K Ot I48.0 PAROXYSMAL ATRIAL FIBRILLATION 08/27/2017 AMANUEL KIRKPATRICK DOA K Ot J10.1 FLU DUE TO OTH IDENT INFLUENZA VIRUS W O 08/27/2017 AMANUEL KIRKPATRICK DOA Oscar Ot R06.02 SHORTNESS OF BREATH 08/27/2017 CASIMIRO VALENTIN ROSIE K Ot Z87.891 PERSONAL HISTORY OF NICOTINE DEPENDENCE 08/27/2017 AMANUEL KIRKPATRICK DOA K Ot Z88.0 ALLERGY STATUS TO PENICILLIN 08/27/2017 ROSIE KIRKPATRICK DO Ot Z91.041 RADIOGRAPHIC DYE ALLERGY STATUS 09/02/2017 MOHSEN MORRIS MD Ot E78. 2 MIXED HYPERLIPIDEMIA 09/02/2017 MOHSEN MORRIS MD Ot I10 ESSENTIAL (PRIMARY) HYPERTENSION 09/02/2017 MOHSEN MORRIS MD Ot I25. 10 ATHSCL HEART DISEASE OF [place] CORONARY 09/02/2017 MOHSEN MORRIS MD Ot I48. 0 PAROXYSMAL ATRIAL FIBRILLATION 09/02/2017 MOHSEN MORRIS MD Ot R07. 89 OTHER CHEST PAIN 09/04/2017 AMANUEL KIRKPATRICK DOA K Ot E78.00 PURE HYPERCHOLESTEROLEMIA, UNSPECIFIED 09/04/2017 CASIMIRO DO ROSIE K Ot F32.9 MAJOR DEPRESSIVE DISORDER, SINGLE EPISOD 09/04/2017 CASIMIRO DO, ROSIE K Ot F41.9 ANXIETY DISORDER, UNSPECIFIED 09/04/2017 CASIMIRO DO, ROSIE K Ot I10 ESSENTIAL (PRIMARY) HYPERTENSION 09/04/2017 CASIMIRO DO, ROSIE K Ot I48.0 PAROXYSMAL ATRIAL FIBRILLATION 09/04/2017 CASIMIRO VALENTINROSIE Ot J10.1 FLU DUE TO OTH IDENT INFLUENZA VIRUS W O 09/04/2017 CASIMIRO DOROSIE Ot R06.02 SHORTNESS OF BREATH 09/04/2017 CASIMIRO VALENTIN ROSIE K Ot Z87.891 PERSONAL HISTORY OF NICOTINE DEPENDENCE 09/04/2017 CASIMIRO DOROSIE Ot Z88.0 ALLERGY STATUS TO PENICILLIN 09/04/2017 CASIMIRO DOROSIE Ot Z91.041 RADIOGRAPHIC DYE ALLERGY STATUS 09/22/2017 MOHSEN MORRIS MD Ot E78. 2 MIXED HYPERLIPIDEMIA 09/22/2017 MOHSEN MORRIS MD Ot I10 ESSENTIAL (PRIMARY) HYPERTENSION 09/22/2017 MOHSEN MORRIS MD Ot I25. 10 ATHSCL HEART DISEASE OF [place] CORONARY 09/22/2017 MOHSEN MORRIS MD Ot I48. 0 PAROXYSMAL ATRIAL FIBRILLATION 09/22/2017 MOHSEN MORRIS MD Ot R07. 89 OTHER CHEST PAIN 10/27/2017 PREMA MALIK MD Ot E78.00 PURE HYPERCHOLESTEROLEMIA, UNSPECIFIED 10/27/2017 PREMA MALIK MD Ot F32 .9 MAJOR DEPRESSIVE DISORDER, SINGLE EPISOD 10/27/2017 PREMA MALIK MD, Ot F41 .9 ANXIETY DISORDER, UNSPECIFIED 10/27/2017 PREMA MALIK MD Ot G47.30 SLEEP APNEA, UNSPECIFIED 10/27/2017 PREMA MALIK MD Ot I10 ESSENTIAL (PRIMARY) HYPERTENSION 10/27/2017 PREMA MALIK MD Ot J81 .1 CHRONIC PULMONARY EDEMA 10/27/2017 PREMA MALIK MD Ot K21 .9 GASTRO-ESOPHAGEAL REFLUX DISEASE WITHOUT 10/27/2017 PREMA MALIK MD Ot R06.02 SHORTNESS OF BREATH 10/27/2017 PREMA MALIK MD Ot Z79.01 NURSING HOME (CURRENT) USE OF ANTICOAGULANT 10/27/2017 PREMA MALIK MD Ot Z82.49 FAMILY HX OF ISCHEM HEART DIS AND OTH DI 10/27/2017 PREMA MALIK MD Ot Z87.19 PERSONAL HISTORY OF OTHER DISEASES OF TH 10/27/2017 PREMA MALIK MD, Ot Z87.891 PERSONAL HISTORY OF NICOTINE DEPENDENCE 10/27/2017 PREMA MALIK MD Ot Z88 .0 ALLERGY STATUS TO PENICILLIN 10/27/2017 PREMA MALIK MD Ot Z91.041 RADIOGRAPHIC DYE ALLERGY STATUS 10/27/2017 PREMA MALIK MD Ot Z96 .0 PRESENCE OF UROGENITAL IMPLANTS 11/10/2017 MOHSEN MORRIS MD Ot E78. 5 HYPERLIPIDEMIA, UNSPECIFIED 11/10/2017 MOHSEN MORRIS MD Ot G47. 33 OBSTRUCTIVE SLEEP APNEA (ADULT) (PEDIATR 11/10/2017 MOHSEN MORRIS MD Ot I10 ESSENTIAL (PRIMARY) HYPERTENSION 11/10/2017 MOHSEN MORRIS MD Ot I25. 10 ATHSCL HEART DISEASE OF [place] CORONARY 11/10/2017 MOHSEN MORRIS MD Ot I27. 20 PULMONARY HYPERTENSION, UNSPECIFIED 11/10/2017 MOHSEN MORRIS MD Ot I48. 0 PAROXYSMAL ATRIAL FIBRILLATION 11/10/2017 MOHSEN MORRIS MD Ot I65. 23 OCCLUSION AND STENOSIS OF BILATERAL [place] 11/10/2017 MOHSEN MORRIS MD Ot J44. 9 CHRONIC OBSTRUCTIVE PULMONARY DISEASE, U 11/10/2017 MOHSEN MORRIS MD Ot K22. 5 DIVERTICULUM OF ESOPHAGUS, ACQUIRED 11/10/2017 MOHSEN MORRIS MD Ot K29. 70 GASTRITIS, UNSPECIFIED, WITHOUT BLEEDING 11/10/2017 MOHSEN MORRIS MD Ot Q21. 1 ATRIAL SEPTAL DEFECT 11/10/2017 MOHSEN MORRIS MD Ot R07. 9 CHEST PAIN, UNSPECIFIED 11/10/2017 MOHSEN MORRIS MD Ot R60. 0 LOCALIZED EDEMA 11/10/2017 MOHSEN MORRIS MD Ot Z86. 79 PERSONAL HISTORY OF OTHER DISEASES OF TH 11/10/2017 MOHSEN MORRIS MD Ot Z91. 19 PATIENT'S NONCOMPLIANCE W [facility] TR 11/10/2017 MOHSEN MORRIS MD Ot Z95. 1 PRESENCE OF AORTOCORONARY BYPASS GRAFT 11/11/2017 MOHSEN MORRIS MD Ot E78. 5 HYPERLIPIDEMIA, UNSPECIFIED 11/11/2017 MOHSEN MORRIS MD Ot G47. 33 OBSTRUCTIVE SLEEP APNEA (ADULT) (PEDIATR 11/11/2017 MOHSEN MORRIS MD Ot I10 ESSENTIAL (PRIMARY) HYPERTENSION 11/11/2017 MOHSEN MORRIS MD Ot I25. 10 ATHSCL HEART DISEASE OF [place] CORONARY 11/11/2017 OMHSEN MORRIS MD Ot I27. 20 PULMONARY HYPERTENSION, UNSPECIFIED 11/11/2017 MOHSEN MORRIS MD Ot I48. 0 PAROXYSMAL ATRIAL FIBRILLATION 11/11/2017 MOHSEN MORRIS MD Ot I65. 23 OCCLUSION AND STENOSIS OF BILATERAL [place] 11/11/2017 MOHSEN MORRIS MD Ot J44. 9 CHRONIC OBSTRUCTIVE PULMONARY DISEASE, U 11/11/2017 MOHSEN MORRIS MD Ot K22. 5 DIVERTICULUM OF ESOPHAGUS, ACQUIRED 11/11/2017 MOHSEN MORRIS MD Ot K29. 70 GASTRITIS, UNSPECIFIED, WITHOUT BLEEDING 11/11/2017 MOHSEN MORRIS MD Ot Q21. 1 ATRIAL SEPTAL DEFECT 11/11/2017 MOHSEN MORRIS MD Ot R07. 9 CHEST PAIN, UNSPECIFIED 11/11/2017 MOHSEN MORRIS MD Ot R60. 0 LOCALIZED EDEMA 11/11/2017 MOHSEN MORRIS MD Ot Z86. 79 PERSONAL HISTORY OF OTHER DISEASES OF TH 11/11/2017 MOHSEN MORRIS MD Ot Z91. 19 PATIENT'S NONCOMPLIANCE W [facility] TR 11/11/2017 MOHSEN MORRIS MD Ot Z95. 1 PRESENCE OF AORTOCORONARY BYPASS GRAFT 11/11/2017 MOHSEN MORRIS MD Ot E78. 5 HYPERLIPIDEMIA, UNSPECIFIED 11/11/2017 MOHSEN MORRIS MD Ot G47. 33 OBSTRUCTIVE SLEEP APNEA (ADULT) (PEDIATR 11/11/2017 MOHSEN MORRIS MD Ot I10 ESSENTIAL (PRIMARY) HYPERTENSION 11/11/2017 MOHSEN MORRIS MD Ot I25. 10 ATHSCL HEART DISEASE OF [place] CORONARY 11/11/2017 MOHSEN MORRIS MD Ot I27. 20 PULMONARY HYPERTENSION, UNSPECIFIED 11/11/2017 MOHSEN MORRIS MD Ot I48. 0 PAROXYSMAL ATRIAL FIBRILLATION 11/11/2017 MOHSEN MORRIS MD Ot I65. 23 OCCLUSION AND STENOSIS OF BILATERAL [place] 11/11/2017 MOHSEN MORRIS MD Ot I73. 9 PERIPHERAL VASCULAR DISEASE, UNSPECIFIED 11/11/2017 MOHSEN MORRIS MD Ot J44. 9 CHRONIC OBSTRUCTIVE PULMONARY DISEASE, U 11/11/2017 MOHSEN MORRIS MD, Ot K22. 5 DIVERTICULUM OF ESOPHAGUS, ACQUIRED 11/11/2017 MOHSEN MORRIS MD, Ot K29. 70 GASTRITIS, UNSPECIFIED, WITHOUT BLEEDING 11/11/2017 MOHSEN MORRIS MD, Ot Q21. 1 ATRIAL SEPTAL DEFECT 11/11/2017 MOHSEN MORRIS MD, Ot R07. 9 CHEST PAIN, UNSPECIFIED 11/11/2017 MOHSEN MORRIS MD, Ot R60. 0 LOCALIZED EDEMA 11/11/2017 MOHSEN MORRIS MD, Ot Z86. 79 PERSONAL HISTORY OF OTHER DISEASES OF 11/11/2017 MOHSEN MORRIS MD, Ot Z91. 19 PATIENT'S NONCOMPLIANCE W [facility] TR 11/11/2017 MOHSEN MORRIS MD, Ot Z95. 1 PRESENCE OF AORTOCORONARY BYPASS GRAFT 12/04/2017 RAFFY CALLOWAY Ot G47.33 OBSTRUCTIVE SLEEP APNEA (ADULT) (PEDIATR 12/06/2017 RAFFY CALLOWAY Ot G47.33 OBSTRUCTIVE SLEEP APNEA (ADULT) (PEDIATR 03/10/2018 MARINA MARTINEZ MD Ot G47.33 OBSTRUCTIVE SLEEP APNEA (ADULT) (PEDIATR 03/14/2018 EDD VALLE MD Ot V76.12 OT SCREEN MAMMO-MALIGN NEOPLASM OF [...] SECUNDUM ATRIAL SEPT DEF 03/14/2018 Ot 441.4 ABDO M AORTIC ANEURYSM 03/14/2018 Ot 733.90 BON E CARTILAGE DIS NOS 03/14/2018 Ot 959.19 OTH INJURY OF OTHER SITES OF TRUNK 03/14/2018 Ot E000.8 OTH ER EXTERNAL CAUSE STATUS 03/14/2018 Ot E927.0 OVE REXERTION FROM SUDDEN STRENUOUS MOVEM 03/14/2018 Ot 441.4 ABDO M AORTIC ANEURYSM 03/14/2018 MADELYN SCHAFER, PAMELA Aragon Ot 724.2 LUMBAGO 03/14/2018 MADELYN SCHAFER, PAMELA Aragon Ot 733.1 3 PATHOLOGIC FRACTURE, VERTEBRAE 03/14/2018 TORI SCHAFER, EDD Rojo Ot 733.13 PATHOLOGIC FRACTURE, VERTEBRAE 03/14/2018 EDD VALLE MD Ot 733.90 BONE CARTILAGE DIS NOS 03/14/2018 ALEXANDRA SCHAFER, MOHSEN Aragon Ot 272. 4 HYPERLIPIDEMIA NEC/NOS 03/14/2018 MOHSEN MORRIS MD Ot 401. 9 HYPERTENSION NOS 03/14/2018 ALEXANDRA SCHAFER, MOHSEN rAagon Ot 414. 00 CORON ATHEROSCLER NOS TYPE VESSEL, NATIV 03/14/2018 MOHSEN MORRIS MD Ot 786. 09 RESPIRATORY ABNORM NEC 03/14/2018 MARU TAVERAS Ot I10 ESSENTIAL (PRIMARY) HYPERTENSION 03/14/2018 MARU TAVERAS Ot I25.10 ATHSCL HEART DISEASE OF [place] CORONARY 03/14/2018 MARU TAVERAS Ot I71.4 ABDOMINAL AORTIC ANEURYSM, WITHOUT RUPTU 03/14/2018 MARU TAVERAS Ot R07.89 OTHER CHEST PAIN 03/14/2018 MARU TAVERAS Ot I10 ESSENTIAL (PRIMARY) HYPERTENSION 03/14/2018 MARU TAVERAS Ot I25.10 ATHSCL HEART DISEASE OF [place] CORONARY 03/14/2018 MARU TAVERAS Ot I71.4 ABDOMINAL AORTIC ANEURYSM, WITHOUT RUPTU 03/14/2018 MARU TAVERAS Ot R07.89 OTHER CHEST PAIN 03/14/2018 VIKTOR REBOLLEDO, MARU Oscar Ot I10 ESSENTIAL (PRIMARY) HYPERTENSION 03/14/2018 VIKTOR REBOLLEDO, MARU Moore Ot I25.10 ATHSCL HEART DISEASE OF [place] CORONARY 03/14/2018 VIKTOR REBOLLEDO, MARU Moore Ot I71.4 ABDOMINAL AORTIC ANEURYSM, WITHOUT RUPTU 03/14/2018 MARU TAVERAS Ot R07.89 OTHER CHEST PAIN 03/14/2018 AGUSTIN HOWELL MATERIALS COORDINATOR Ot M25.562 PAIN IN LEFT KNEE 03/14/2018 AGUSTIN HOWELL MATERIALS COORDINATOR Ot M79.605 PAIN IN LEFT LEG 03/14/2018 MARU TAVERAS Ot E78.2 MIXED HYPERLIPIDEMIA 03/14/2018 VIKTOR REBOLLEDO, MARU Moore Ot G47.33 OBSTRUCTIVE SLEEP APNEA (ADULT) (PEDIATR 03/14/2018 MARU TAVERAS Ot I10 ESSENTIAL (PRIMARY) HYPERTENSION 03/14/2018 VIKTOR REBOLLEDO, MARU Moore Ot I25.10 ATHSCL HEART DISEASE OF [place] CORONARY 03/14/2018 STEFFI SCHAFER, BIBIANA Roach Ot I49.9 CARDIAC ARRHYTHMIA, UNSPECIFIED 03/14/2018 STEFFI SCHAFER, BIBIANA Roach Ot R53.83 OTHER FATIGUE 03/14/2018 VIKTOR REBOLLEDO, MARU Moore Ot E78.2 MIXED HYPERLIPIDEMIA 03/14/2018 VIKTOR REBOLLEDO, MARU Moore Ot I10 ESSENTIAL (PRIMARY) HYPERTENSION 03/14/2018 VIKTOR REBOLLEDO, MARU Moore Ot I25.10 ATHSCL HEART DISEASE OF [place] CORONARY 03/14/2018 MARU TAVERAS Ot R00.2 PALPITATIONS 03/14/2018 VIKTOR REBOLLEDO, MARU Moore Ot E78.2 MIXED HYPERLIPIDEMIA 03/14/2018 VIKTOR REBOLLEDO, MARU K Ot I10 ESSENTIAL (PRIMARY) HYPERTENSION 03/14/2018 MARU TAVERAS K Ot I25.10 ATHSCL HEART DISEASE OF [place] CORONARY 03/14/2018 MARU TAVERAS Ot R00.2 PALPITATIONS 03/14/2018 ALEXANDRA SCHAFER, MOHSEN Aragon Ot E78. 2 MIXED HYPERLIPIDEMIA 03/14/2018 MOHSEN MORRIS MD Ot I10 ESSENTIAL (PRIMARY) HYPERTENSION 03/14/2018 MOHSEN MORRIS MD Ot I25. 10 ATHSCL HEART DISEASE OF [place] CORONARY 03/14/2018 MOHSEN MORRIS MD Ot I48. 0 PAROXYSMAL ATRIAL FIBRILLATION 03/14/2018 MOHSEN MORRIS MD Ot R07. 89 OTHER CHEST PAIN 03/15/2018 JUAN SCHAFER, MARINA Carrillo Ot G47.33 OBSTRUCTIVE SLEEP APNEA (ADULT) (PEDIATR 03/18/2018 Ot E78.5 HYPE RLIPIDEMIA, UNSPECIFIED 03/18/2018 Ot I10 ESSENT IAL (PRIMARY) HYPERTENSION 03/18/2018 Ot I25.10 ATH SCL HEART DISEASE OF [place] CORONARY 03/18/2018 Ot R07.89 OTH ER CHEST PAIN 03/23/2018 MOHSEN MORRIS MD Ot E66. 9 OBESITY, UNSPECIFIED 03/23/2018 MOHSEN MORRIS MD Ot E78. 5 HYPERLIPIDEMIA, UNSPECIFIED 03/23/2018 MOHSEN MORRIS MD Ot G47. 33 OBSTRUCTIVE SLEEP APNEA (ADULT) (PEDIATR 03/23/2018 MOHSEN MORRIS MD Ot I10 ESSENTIAL (PRIMARY) HYPERTENSION 03/23/2018 MOHSEN MORRIS MD Ot I25. 10 ATHSCL HEART DISEASE OF [place] CORONARY 03/23/2018 MOHSEN MORRIS MD Ot I27. 20 PULMONARY HYPERTENSION, UNSPECIFIED 03/23/2018 MOHSEN MORRIS MD Ot I48. 0 PAROXYSMAL ATRIAL FIBRILLATION 03/23/2018 MOHSEN MORRIS MD Ot I50. 9 HEART FAILURE, UNSPECIFIED 03/23/2018 MOHSEN MORRIS MD Ot K29. 70 GASTRITIS, UNSPECIFIED, WITHOUT BLEEDING 03/23/2018 MOHSEN MORRIS MD Ot R07. 9 CHEST PAIN, UNSPECIFIED 03/23/2018 MOHSEN MORRIS MD Ot Z68. 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 1 PRESENCE OF AORTOCORONARY BYPASS GRAFT 03/25/2018 MARU TAVERAS Ot E78.2 MIXED HYPERLIPIDEMIA 03/25/2018 MARU TAVERAS Ot I10 ESSENTIAL (PRIMARY) HYPERTENSION 03/25/2018 MARU TAVERAS Ot I25.10 ATHSCL HEART DISEASE OF [place] CORONARY 03/25/2018 MARU TAVERAS Ot R07.89 OTHER CHEST PAIN 03/25/2018 MOHSEN MORRIS MD Ot E66. 9 OBESITY, UNSPECIFIED 03/25/2018 MOHSEN MORRIS MD Ot E78. 5 HYPERLIPIDEMIA, UNSPECIFIED 03/25/2018 MOHSEN MORRIS MD Ot G47. 33 OBSTRUCTIVE SLEEP APNEA (ADULT) (PEDIATR 03/25/2018 MOHSEN MORRIS MD Ot I10 ESSENTIAL (PRIMARY) HYPERTENSION 03/25/2018 MOHSEN MORRIS MD Ot I25. 10 ATHSCL HEART DISEASE OF [place] CORONARY 03/25/2018 MOHSEN MORRIS MD Ot I27. 20 PULMONARY HYPERTENSION, UNSPECIFIED 03/25/2018 MOHSEN MORRIS MD Ot I48. 0 PAROXYSMAL ATRIAL FIBRILLATION 03/25/2018 MOHSEN MORRIS MD Ot I50. 9 HEART FAILURE, UNSPECIFIED 03/25/2018 MOHSEN MORRIS MD Ot K29. 70 GASTRITIS, UNSPECIFIED, WITHOUT BLEEDING 03/25/2018 MOHSEN MORRIS MD Ot R07. 9 CHEST PAIN, UNSPECIFIED 03/25/2018 MOHSEN MORRIS MD Ot Z68. 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 1 PRESENCE OF AORTOCORONARY BYPASS GRAFT 04/03/2018 JAIR GONSALES DO Ot E78.5 HYPERLIPIDEMIA, UNSPECIFIED 04/03/2018 DEWAYNE GONSALES DOI Ot F32.9 MAJOR DEPRESSIVE DISORDER, SINGLE EPISOD 04/03/2018 DEWAYNE GONSALES DOI Ot F41.9 ANXIETY DISORDER, UNSPECIFIED 04/03/2018 GONSALES DO, JAIR Ot G47.00 INSOMNIA, UNSPECIFIED 04/03/2018 GONSALES DO, JAIR Ot G47.33 OBSTRUCTIVE SLEEP APNEA (ADULT) (PEDIATR 04/03/2018 GONSALES DO, JAIR Ot I11.0 HYPERTENSIVE HEART DISEASE WITH HEART FA 04/03/2018 GONSALES DO, JAIR Ot I25.10 ATHSCL HEART DISEASE OF [place] CORONARY 04/03/2018 GONSALES DO, JAIR Ot I48.0 PAROXYSMAL ATRIAL FIBRILLATION 04/03/2018 GONSALES DO, JAIR Ot I50.20 UNSPECIFIED SYSTOLIC (CONGESTIVE) HEART 04/03/2018 GONSALES DO, JAIR Ot J44.9 CHRONIC OBSTRUCTIVE PULMONARY DISEASE, U 04/03/2018 GONSALES DO, JAIR Ot K21.9 GASTRO-ESOPHAGEAL REFLUX DISEASE WITHOUT 04/03/2018 GONSALES DO, JAIR Ot Z87.89 1 PERSONAL HISTORY OF NICOTINE DEPENDENCE 04/03/2018 GONSALES DO JAIR Ot Z95.1 PRESENCE OF AORTOCORONARY BYPASS GRAFT 04/15/2018 Ot E78.5 HYPE RLIPIDEMIA, UNSPECIFIED 04/15/2018 Ot I10 ESSENT IAL (PRIMARY) HYPERTENSION 04/15/2018 Ot I25.10 ATH SCL HEART DISEASE OF [place] CORONARY 04/15/2018 Ot R07.89 OTH ER CHEST PAIN 07/04/2018 EDD VALLE MD Ot [...] TAVERAS Ot 401.9 HYPERTENSION NOS 07/04/2018 MARU TAVERAS Ot 414.00 CORON ATHEROSCLER NOS TYPE VESSEL, NATIV 07/04/2018 MARU TAVERAS Ot 424.0 MITRAL VALVE DISORDER 07/04/2018 MARU TAVERAS Ot 745.5 SECUNDUM ATRIAL SEPT DEF 07/04/2018 Ot 441.4 ABDO M AORTIC ANEURYSM 07/04/2018 Ot 733.90 BON E CARTILAGE DIS NOS 07/04/2018 Ot 959.19 OTH INJURY OF OTHER SITES OF TRUNK 07/04/2018 Ot E000.8 OTH ER EXTERNAL CAUSE STATUS 07/04/2018 Ot E927.0 OVE REXERTION FROM SUDDEN STRENUOUS MOVEM 07/04/2018 Ot 441.4 ABDO M AORTIC ANEURYSM 07/04/2018 MADELYN SCHAFER, PAMELA Aragon Ot 724.2 LUMBAGO 07/04/2018 MADELYN SCHAFER, PAMELA Aragon Ot 733.1 3 PATHOLOGIC FRACTURE, VERTEBRAE 07/04/2018 TORI SCHAFER, EDD Rojo Ot 733.13 PATHOLOGIC FRACTURE, VERTEBRAE 07/04/2018 EDD VALLE MD Ot 733.90 BONE CARTILAGE DIS NOS 07/04/2018 ALEXANDRA SCHAFER, MOHSEN Aragon Ot 272. 4 HYPERLIPIDEMIA NEC/NOS 07/04/2018 ALEXANDRA SCHAFER, MOHSEN Aragon Ot 401. 9 HYPERTENSION NOS 07/04/2018 ALEXANDRA SCHAFER, MOHSEN Aragon Ot 414. 00 CORON ATHEROSCLER NOS TYPE VESSEL, NATIV 07/04/2018 ALEXANDRA SCHAFER, MOHSEN Aragon Ot 786. 09 RESPIRATORY ABNORM NEC 07/04/2018 MARU TAVERAS Ot I10 ESSENTIAL (PRIMARY) HYPERTENSION 07/04/2018 MARU TAVERAS Ot I25.10 ATHSCL HEART DISEASE OF [place] CORONARY 07/04/2018 MARU TAVERAS Ot I71.4 ABDOMINAL AORTIC ANEURYSM, WITHOUT RUPTU 07/04/2018 MARU TAVERAS Ot R07.89 OTHER CHEST PAIN 07/04/2018 MARU TAVERAS Ot I10 ESSENTIAL (PRIMARY) HYPERTENSION 07/04/2018 MARU TAVERAS Ot I25.10 ATHSCL HEART DISEASE OF [place] CORONARY 07/04/2018 MEDINA-IVONE PA, MARU K Ot I71.4 ABDOMINAL AORTIC ANEURYSM, WITHOUT RUPTU 07/04/2018 VIKTOR REBOLLEDO, MARU K Ot R07.89 OTHER CHEST PAIN 07/04/2018 VIKTOR REBOLLEDO, MARU K Ot I10 ESSENTIAL (PRIMARY) HYPERTENSION 07/04/2018 VIKTOR REBOLLEDO, MARU K Ot I25.10 ATHSCL HEART DISEASE OF [place] CORONARY 07/04/2018 VIKTOR REBOLLEDO, MARU K Ot I71.4 ABDOMINAL AORTIC ANEURYSM, WITHOUT RUPTU 07/04/2018 VIKTOR REBOLLEDO, MARU K Ot R07.89 OTHER CHEST PAIN 07/04/2018 AGUSTIN HOWELL MATERIALS COORDINATOR Ot M25.562 PAIN IN LEFT KNEE 07/04/2018 AGUSTIN OHWELL MATERIALS COORDINATOR Ot M79.605 PAIN IN LEFT LEG 07/04/2018 VIKTOR REBOLLEDO, MARU K Ot E78.2 MIXED HYPERLIPIDEMIA 07/04/2018 VIKTOR REBOLLEDO, MARU K Ot G47.33 OBSTRUCTIVE SLEEP APNEA (ADULT) (PEDIATR 07/04/2018 VIKTOR REBOLLEDO, MARU K Ot I10 ESSENTIAL (PRIMARY) HYPERTENSION 07/04/2018 VIKTOR REBOLLEDO, MARU K Ot I25.10 ATHSCL HEART DISEASE OF [place] CORONARY 07/04/2018 STEFFI SCHAFER, BIBIANA Roach Ot I49.9 CARDIAC ARRHYTHMIA, UNSPECIFIED 07/04/2018 STEFFI SCHAFER, BIBIANA Roach Ot R53.83 OTHER FATIGUE 07/04/2018 VIKTOR REBOLLEDO, MARU K Ot E78.2 MIXED HYPERLIPIDEMIA 07/04/2018 VIKTOR REBOLLEDO, MARU K Ot I10 ESSENTIAL (PRIMARY) HYPERTENSION 07/04/2018 VIKTOR REBOLLEDO, MARU K Ot I25.10 ATHSCL HEART DISEASE OF [place] CORONARY 07/04/2018 VIKTOR REBOLLEDO, MARU K Ot R00.2 PALPITATIONS 07/04/2018 VIKTOR REBOLLEDO, MARU K Ot E78.2 MIXED HYPERLIPIDEMIA 07/04/2018 VIKTOR REBOLLEDO, MARU K Ot I10 ESSENTIAL (PRIMARY) HYPERTENSION 07/04/2018 VIKTOR REBOLLEDO, MARU K Ot I25.10 ATHSCL HEART DISEASE OF [place] CORONARY 07/04/2018 VIKTOR REBOLLEDO, MARU K Ot R00.2 PALPITATIONS 07/04/2018 ALEXANDRA SCHAFER, MOHSEN Aragon Ot E78. 2 MIXED HYPERLIPIDEMIA 07/04/2018 ALEXANDRA SCHAFER, MOHSEN Aragon Ot I10 ESSENTIAL (PRIMARY) HYPERTENSION 07/04/2018 ALEXANDRA SCHAFER, MOHSEN Aragon Ot I25. 10 ATHSCL HEART DISEASE OF [place] CORONARY 07/04/2018 ALEXANDRA SCHAFER, MOHSEN Aragon Ot I48. 0 PAROXYSMAL ATRIAL FIBRILLATION 07/04/2018 ALEXANDRA SCHAFER, MOHSEN Aragon Ot R07. 89 OTHER CHEST PAIN 07/04/2018 Ot E78.5 HYPE RLIPIDEMIA, UNSPECIFIED 07/04/2018 Ot I10 ESSENT IAL (PRIMARY) HYPERTENSION 07/04/2018 Ot I25.10 ATH SCL HEART DISEASE OF [place] CORONARY 07/04/2018 Ot R07.89 OTH ER CHEST PAIN 07/04/2018 MARU TAVERAS Ot E78.2 MIXED HYPERLIPIDEMIA 07/04/2018 MARU TAVERAS Ot I10 ESSENTIAL (PRIMARY) HYPERTENSION 07/04/2018 MARU TAVERAS Ot I25.10 ATHSCL HEART DISEASE OF [place] CORONARY 07/04/2018 MARU TAVERAS Ot R07.89 OTHER CHEST PAIN 08/03/2018 ALIS GLORIAP Ot M41.86 OTHER FORMS OF SCOLIOSIS, LUMBAR REGION 08/03/2018 ALIS GLORIAP Ot S32.010A WEDGE COMPRESSION FRACTURE OF FIRST LUMB 08/03/2018 ALIS GLORIAP Ot S32.030A WEDGE COMPRESSION FRACTURE OF THIRD LUMB 08/03/2018 ALIS GLORIAP Ot S32.040A WEDGE COMPRESSION FRACTURE OF FOURTH LUM 08/07/2018 ALIS GLORIAP Ot M41.86 OTHER FORMS OF SCOLIOSIS, LUMBAR REGION 08/07/2018 ALIS GLORIAP Ot S32.010A WEDGE COMPRESSION FRACTURE OF FIRST LUMB 08/07/2018 ALIS GLORIAP Ot S32.030A WEDGE COMPRESSION FRACTURE OF THIRD LUMB 08/07/2018 ALIS GLORIAP Ot S32.040A WEDGE COMPRESSION FRACTURE OF FOURTH LUM 08/12/2018 ALEXANDRA SCHAFER, MOHSEN Aragon Ot E78. 5 HYPERLIPIDEMIA, UNSPECIFIED 08/12/2018 MOHSEN MORRIS MD Ot G47. 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 10 ATHSCL HEART DISEASE OF [place] CORONARY 08/12/2018 MOHSEN MORRIS MD Ot R07. 89 OTHER CHEST PAIN 08/30/2018 MOHSEN MORRIS MD Ot E78. 5 HYPERLIPIDEMIA, UNSPECIFIED 08/30/2018 MOHSEN MORRIS MD Ot G47. 33 OBSTRUCTIVE SLEEP APNEA (ADULT) (PEDIATR 08/30/2018 MOHSEN MORRIS MD Ot I08. 1 RHEUMATIC DISORDERS OF BOTH MITRAL AND T 08/30/2018 MOHSEN MORRIS MD Ot I10 ESSENTIAL (PRIMARY) HYPERTENSION 08/30/2018 MOHSEN MORRIS MD Ot I25. 10 ATHSCL HEART DISEASE OF [place] CORONARY 08/30/2018 MOHSEN MORRIS MD Ot R07. 89 OTHER CHEST PAIN 08/31/2018 ALIS GLORIA INFECTIOUS DISEASES PHYSICIAN Ot M41.86 OTHER FORMS OF SCOLIOSIS, LUMBAR REGION 08/31/2018 ALIS GLORIA INFECTIOUS DISEASES PHYSICIAN Ot S32.010A WEDGE COMPRESSION FRACTURE OF FIRST LUMB 08/31/2018 ALIS GLORIA INFECTIOUS DISEASES PHYSICIAN Ot S32.030A WEDGE COMPRESSION FRACTURE OF THIRD LUMB 08/31/2018 ALIS GLORIA INFECTIOUS DISEASES PHYSICIAN Ot S32.040A WEDGE COMPRESSION FRACTURE OF FOURTH LUM 09/15/2018 MOHSEN MORRIS MD Ot I48. 91 UNSPECIFIED ATRIAL FIBRILLATION 09/21/2018 MOHSEN MORRIS MD Ot I48. 0 PAROXYSMAL ATRIAL FIBRILLATION 09/26/2018 MOHSEN MORRIS MD Ot I48. 0 PAROXYSMAL ATRIAL FIBRILLATION 09/28/2018 MOHSEN MORRIS MD Ot I48. 91 UNSPECIFIED ATRIAL FIBRILLATION 10/11/2018 JOSE POTTER MD Ot E78.00 PURE HYPERCHOLESTEROLEMIA, UNSPECIFIED 10/11/2018 JOSE POTTER MD Ot F32.9 MAJOR DEPRESSIVE DISORDER, SINGLE EPISOD 10/11/2018 JOSE POTTER MD Ot F41.9 ANXIETY DISORDER, UNSPECIFIED 10/11/2018 JOSE POTTER MD Ot G47.30 SLEEP APNEA, UNSPECIFIED 10/11/2018 JOSE POTTER MD Ot I10 ESSENTIAL (PRIMARY) HYPERTENSION 10/11/2018 JOSE POTTER MD, Ot I25.10 ATHSCL HEART DISEASE OF [place] CORONARY 10/11/2018 JOSE POTTER MD Ot I48.91 UNSPECIFIED ATRIAL FIBRILLATION 10/11/2018 JOSE POTTER MD, Ot J44.9 CHRONIC OBSTRUCTIVE PULMONARY DISEASE, U 10/11/2018 JOSE POTTER MD, Ot K21.9 GASTRO-ESOPHAGEAL REFLUX DISEASE WITHOUT 10/11/2018 JOSE POTTER MD, Ot K58.9 IRRITABLE BOWEL SYNDROME WITHOUT DIARRHE 10/11/2018 JOSE POTTER MD, Ot R07.9 CHEST PAIN, UNSPECIFIED 10/11/2018 JOSE POTTER MD Ot 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 0 PAROXYSMAL ATRIAL FIBRILLATION 10/19/2018 MOHSEN MORRIS MD Ot I48. 91 UNSPECIFIED ATRIAL FIBRILLATION 10/26/2018 ALIS GLORIA Ot R07.9 CHEST PAIN, UNSPECIFIED 11/21/2018 ALIS GLORIA Ot R07.9 CHEST PAIN, UNSPECIFIED 12/11/2018 MOHSEN MORRIS MD Ot I48. 91 UNSPECIFIED ATRIAL FIBRILLATION 12/14/2018 MOHSEN MORRIS MD Ot I48. 91 UNSPECIFIED ATRIAL FIBRILLATION 12/14/2018 MOHSEN MORRIS MD Ot I48. 91 UNSPECIFIED ATRIAL FIBRILLATION 01/12/2019 MOHSEN MORRIS MD Ot I48. 91 UNSPECIFIED ATRIAL FIBRILLATION 01/12/2019 MOHSEN MORRIS MD Ot I48. 91 UNSPECIFIED ATRIAL FIBRILLATION 01/13/2019 ALIS GLORIA Ot I71.4 ABDOMINAL AORTIC ANEURYSM, WITHOUT RUPTU 01/13/2019 ALIS GLORIA Ot M47.816 SPONDYLOSIS W/O MYELOPATHY OR RADICULOPA 01/13/2019 ALIS GLORIA Ot M85.88 OTH DISRD OF BONE DENSITY AND STRUCTURE, 01/13/2019 ALIS GLORIA Ot Z87.81 PERSONAL HISTORY OF (HEALED) TRAUMATIC F 01/18/2019 MOHSEN MORRIS MD Ot E78. 2 MIXED HYPERLIPIDEMIA 01/18/2019 MOHSEN MORRIS MD Ot I10 ESSENTIAL (PRIMARY) HYPERTENSION 01/18/2019 MOHSEN MORRIS MD Ot I25. 10 ATHSCL HEART DISEASE OF [place] CORONARY 01/18/2019 MOHSEN MORRIS MD Ot Z95. 1 PRESENCE OF AORTOCORONARY BYPASS GRAFT 01/27/2019 AGUSTIN HOWELL APRN Ot M47.816 SPONDYLOSIS W/O MYELOPATHY OR RADICULOPA 01/27/2019 AGUSTIN HOWELL MATERIALS COORDINATOR Ot M51.36 OTHER INTERVERTEBRAL DISC DEGENERATION, 01/27/2019 AGUSTIN HOWELL MATERIALS COORDINATOR Ot Z87.81 PERSONAL HISTORY OF (HEALED) TRAUMATIC F 02/02/2019 MOHSEN MORRIS MD Ot I48. 91 UNSPECIFIED ATRIAL FIBRILLATION 02/09/2019 ALIS GLORIA Ot I71.4 ABDOMINAL AORTIC ANEURYSM, WITHOUT RUPTU 02/09/2019 ALIS GLORIA Ot M47.816 SPONDYLOSIS W/O MYELOPATHY OR RADICULOPA 02/09/2019 ALIS GLORIA Ot M85.88 OTH DISRD OF BONE DENSITY AND STRUCTURE, 02/09/2019 ALIS GLORIA Ot Z87.81 PERSONAL HISTORY OF (HEALED) TRAUMATIC F 02/13/2019 MOHSEN MORRIS MD Ot E78. 2 MIXED HYPERLIPIDEMIA 02/13/2019 ALEXANDRA SCHAFER, MOHSEN Aragon Ot I10 ESSENTIAL (PRIMARY) HYPERTENSION 02/13/2019 ALEXANDRA SCHAFER, MOHSEN Aragon Ot I25. 10 ATHSCL HEART DISEASE OF [place] CORONARY 02/13/2019 ALEXANDRA SCHAFER, MOHSEN Aragon Ot Z95. 1 PRESENCE OF AORTOCORONARY BYPASS GRAFT 02/16/2019 AGUSTIN HOWELL MATERIALS COORDINATOR Ot M47.816 SPONDYLOSIS W/O MYELOPATHY OR RADICULOPA 02/16/2019 AGUSTIN HOWELL MATERIALS COORDINATOR Ot M51.36 OTHER INTERVERTEBRAL DISC DEGENERATION, 02/16/2019 AGUSTIN HOWELL MATERIALS COORDINATOR Ot Z87.81 PERSONAL HISTORY OF (HEALED) TRAUMATIC F 02/19/2019 KIMBERLY, MALIKA INFECTIOUS DISEASES PHYSICIAN Ot E78.00 PURE HYPERCHOLESTEROLEMIA, UNSPECIFIED 02/19/2019 KIMBERLY, MALIKA INFECTIOUS DISEASES PHYSICIAN Ot F32.9 MAJOR DEPRESSIVE DISORDER, SINGLE EPISOD 02/19/2019 KIMBERLY, MALIKA INFECTIOUS DISEASES PHYSICIAN Ot F41.9 ANXIETY DISORDER, UNSPECIFIED 02/19/2019 KIMBERLY, MALIKA INFECTIOUS DISEASES PHYSICIAN Ot G47.30 SLEEP APNEA, UNSPECIFIED 02/19/2019 KIMBERLY, MALIKA INFECTIOUS DISEASES PHYSICIAN Ot I11.0 HYPERTENSIVE HEART DISEASE WITH HEART FA 02/19/2019 KIMBERLY, MALIKA INFECTIOUS DISEASES PHYSICIAN Ot I25.10 ATHSCL HEART DISEASE OF [place] CORONARY 02/19/2019 KIMBERLY, MALIKA INFECTIOUS DISEASES PHYSICIAN Ot I48.91 UNSPECIFIED ATRIAL FIBRILLATION 02/19/2019 KIMBERLY, MALIKA INFECTIOUS DISEASES PHYSICIAN Ot I50.9 HEART FAILURE, UNSPECIFIED 02/19/2019 KIMBERLY, MALIKA INFECTIOUS DISEASES PHYSICIAN Ot J44.9 CHRONIC OBSTRUCTIVE PULMONARY DISEASE, U 02/19/2019 KIMBERLY, MALIKA INFECTIOUS DISEASES PHYSICIAN Ot K21.9 GASTRO-ESOPHAGEAL REFLUX DISEASE WITHOUT 02/19/2019 KIMBERLY MALIKA INFECTIOUS DISEASES PHYSICIAN Ot K58.9 IRRITABLE BOWEL SYNDROME WITHOUT DIARRHE 02/19/2019 KIMBERLY, MALIKA INFECTIOUS DISEASES PHYSICIAN Ot M51.36 OTHER INTERVERTEBRAL DISC DEGENERATION, 02/19/2019 KIMBERLY, MALIKA INFECTIOUS DISEASES PHYSICIAN Ot M79.89 OTHER SPECIFIED SOFT TISSUE DISORDERS 02/19/2019 KIMBERLY, MALIKA INFECTIOUS DISEASES PHYSICIAN Ot N39.0 URINARY TRACT INFECTION, SITE NOT SPECIF 02/19/2019 KIMBERLY, MALIKA INFECTIOUS DISEASES PHYSICIAN Ot R60.0 LOCALIZED EDEMA 02/19/2019 KIMBERLY MALIKA INFECTIOUS DISEASES PHYSICIAN Ot Z79.01 NURSING HOME (CURRENT) USE OF ANTICOAGULANT 02/19/2019 MALIKA HARRIS INFECTIOUS DISEASES PHYSICIAN Ot Z82.49 FAMILY HX OF ISCHEM HEART DIS AND OTH DI 02/19/2019 MALIKA HARRISP Ot Z87.891 PERSONAL HISTORY OF NICOTINE DEPENDENCE 02/19/2019 MALIKA HARRIS INFECTIOUS DISEASES PHYSICIAN Ot Z88.0 ALLERGY STATUS TO PENICILLIN 02/19/2019 KIMBERLY MALIKA INFECTIOUS DISEASES PHYSICIAN Ot Z91.041 RADIOGRAPHIC DYE ALLERGY STATUS 02/19/2019 MALIKA HARRIS INFECTIOUS DISEASES PHYSICIAN Ot Z95.1 PRESENCE OF AORTOCORONARY BYPASS GRAFT 02/19/2019 AMLIKA HARRIS INFECTIOUS DISEASES PHYSICIAN Ot Z98.890 OTHER SPECIFIED POSTPROCEDURAL STATES 02/21/2019 ALEXANDRA SCHAFRE, MOHSEN Aragon Ot I48. 91 UNSPECIFIED ATRIAL FIBRILLATION 02/22/2019 MALIKA HARRISP Ot E78.00 PURE HYPERCHOLESTEROLEMIA, UNSPECIFIED 02/22/2019 KIMBERLY MALIKA INFECTIOUS DISEASES PHYSICIAN Ot F32.9 MAJOR DEPRESSIVE DISORDER, SINGLE EPISOD 02/22/2019 MALIKA HARRIS INFECTIOUS DISEASES PHYSICIAN Ot F41.9 ANXIETY DISORDER, UNSPECIFIED 02/22/2019 KIMBERLY MALIKA INFECTIOUS DISEASES PHYSICIAN Ot G47.30 SLEEP APNEA, UNSPECIFIED 02/22/2019 KIMBERLY MALIKA INFECTIOUS DISEASES PHYSICIAN Ot I11.0 HYPERTENSIVE HEART DISEASE WITH HEART FA 02/22/2019 KIMBERLY MALIKA INFECTIOUS DISEASES PHYSICIAN Ot I25.10 ATHSCL HEART DISEASE OF [place] CORONARY 02/22/2019 KIMBERLY MALIKA INFECTIOUS DISEASES PHYSICIAN Ot I48.91 UNSPECIFIED ATRIAL FIBRILLATION 02/22/2019 KIMBERLY MALIKA INFECTIOUS DISEASES PHYSICIAN Ot I50.9 HEART FAILURE, UNSPECIFIED 02/22/2019 KIMBERLY MALIKA INFECTIOUS DISEASES PHYSICIAN Ot J44.9 CHRONIC OBSTRUCTIVE PULMONARY DISEASE, U 02/22/2019 MALIKA HARRIS INFECTIOUS DISEASES PHYSICIAN Ot K21.9 GASTRO-ESOPHAGEAL REFLUX DISEASE WITHOUT 02/22/2019 KIMBERLY, MALIKA INFECTIOUS DISEASES PHYSICIAN Ot K58.9 IRRITABLE BOWEL SYNDROME WITHOUT DIARRHE 02/22/2019 MALIKA HARRIS INFECTIOUS DISEASES PHYSICIAN Ot M51.36 OTHER INTERVERTEBRAL DISC DEGENERATION, 02/22/2019 KIMBERLY MALIKA INFECTIOUS DISEASES PHYSICIAN Ot M79.89 OTHER SPECIFIED SOFT TISSUE DISORDERS 02/22/2019 KIMBERLY MALIKA INFECTIOUS DISEASES PHYSICIAN Ot N39.0 URINARY TRACT INFECTION, SITE NOT SPECIF 02/22/2019 MALIKA HARRISP Ot R60.0 LOCALIZED EDEMA 02/22/2019 MALIKA HARRIS INFECTIOUS DISEASES PHYSICIAN Ot 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 91 UNSPECIFIED ATRIAL FIBRILLATION 04/13/2019 MOHSEN MORRIS MD Ot I48. 0 PAROXYSMAL ATRIAL FIBRILLATION 05/08/2019 Alia HAN MD Ot E66.09 OTHER OBESITY DUE TO EXCESS CALORIES 05/08/2019 Alia HAN MD Ot E78 .5 HYPERLIPIDEMIA, UNSPECIFIED 05/08/2019 Alia HAN MD Ot G47.33 OBSTRUCTIVE SLEEP APNEA (ADULT) (PEDIATR 05/08/2019 Alia HAN MD Ot I10 ESSENTIAL (PRIMARY) HYPERTENSION 05/08/2019 Alia HAN MD Ot I25.10 ATHSCL HEART DISEASE OF [place] CORONARY 05/08/2019 Alia HAN MD Ot I48 .0 PAROXYSMAL ATRIAL FIBRILLATION 05/08/2019 Alia HAN MD Ot I49 .5 SICK SINUS SYNDROME 05/08/2019 Alia HAN MD Ot I71 .4 ABDOMINAL AORTIC ANEURYSM, WITHOUT RUPTU 05/08/2019 Alia HAN MD Ot Z68.41 BODY MASS INDEX (BMI) 40.0-44.9, ADULT 05/08/2019 Alia HAN MD Ot 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 05/08/2019 Alia HAN MD Ot Z79.899 OTHER SEAMING MACHINE OPERATOR (CURRENT) DRUG THERAPY 05/08/2019 Alia HAN MD Ot Z82.49 FAMILY HX OF ISCHEM HEART DIS AND OTH DI 05/08/2019 Alia HAN MD Ot Z88 .0 ALLERGY STATUS TO PENICILLIN 05/08/2019 Alia HAN MD, Ot Z90.49 ACQUIRED ABSENCE OF OTHER SPECIFIED PART 05/08/2019 Alia HAN MD Ot Z90.710 ACQUIRED ABSENCE OF BOTH CERVIX AND UTER 05/08/2019 Alia HAN MD Ot Z90.89 ACQUIRED ABSENCE OF OTHER ORGANS 05/08/2019 Alia HAN MD Ot Z91.041 RADIOGRAPHIC DYE ALLERGY STATUS 05/08/2019 Alia HAN MD Ot Z91.048 OTHER NONMEDICINAL SUBSTANCE ALLERGY STA 05/08/2019 Alia HAN MD Ot Z95 .1 PRESENCE OF AORTOCORONARY BYPASS GRAFT 05/08/2019 Alia HAN MD Ot Z95.818 PRESENCE OF OTHER CARDIAC IMPLANTS AND G 05/24/2019 Alia HAN MD Ot E66.09 OTHER OBESITY DUE TO EXCESS CALORIES 05/24/2019 Alia HAN MD Ot E78 .5 HYPERLIPIDEMIA, UNSPECIFIED 05/24/2019 Alia HAN MD Ot G47.33 OBSTRUCTIVE SLEEP APNEA (ADULT) (PEDIATR 05/24/2019 Alia HAN MD Ot I10 ESSENTIAL (PRIMARY) HYPERTENSION 05/24/2019 Alia HAN MD Ot I25.10 ATHSCL HEART DISEASE OF [place] CORONARY 05/24/2019 Alia HAN MD Ot I48 .0 PAROXYSMAL ATRIAL FIBRILLATION 05/24/2019 Alia HAN MD Ot I49 .5 SICK SINUS SYNDROME 05/24/2019 Alia HAN MD Ot I71 .4 ABDOMINAL AORTIC ANEURYSM, WITHOUT RUPTU 05/24/2019 Alia HAN MD Ot Z68.41 BODY MASS INDEX (BMI) 40.0-44.9, ADULT 05/24/2019 Alia HAN MD Ot Z79.01 NURSING HOME (CURRENT) USE OF ANTICOAGULANT 05/24/2019 Alia HAN MD Ot Z79.899 OTHER NURSING HOME (CURRENT) DRUG THERAPY 05/24/2019 Alia HAN MD Ot Z82.49 FAMILY HX OF ISCHEM HEART DIS AND OTH DI 05/24/2019 Alia HAN MD Ot Z88 .0 ALLERGY STATUS TO PENICILLIN 05/24/2019 Alia HAN MD Ot Z90.49 ACQUIRED ABSENCE OF OTHER SPECIFIED PART 05/24/2019 Alia HAN MD Ot Z90.710 ACQUIRED ABSENCE OF BOTH CERVIX AND UTER 05/24/2019 Alia HAN MD Ot Z90.89 ACQUIRED ABSENCE OF OTHER ORGANS 05/24/2019 Alia HAN MD Ot Z91.041 RADIOGRAPHIC DYE ALLERGY STATUS 05/24/2019 Alia HAN MD Ot Z91.048 OTHER NONMEDICINAL SUBSTANCE ALLERGY STA 05/24/2019 Alia HAN MD Ot Z95 .1 PRESENCE OF AORTOCORONARY BYPASS GRAFT 05/24/2019 Alia HAN MD Ot Z95.818 PRESENCE OF OTHER CARDIAC IMPLANTS AND G 06/19/2019 ALFRED OWENS APRN Ot G47.33 OBSTRUCTIVE SLEEP APNEA (ADULT) (PEDIATR 06/19/2019 ALFRED OWENS APRN Ot J44.9 CHRONIC OBSTRUCTIVE PULMONARY DISEASE, U 06/19/2019 ALFRED OWENS APRN Ot J98.11 ATELECTASIS 06/19/2019 ALFRED OWENS APRN Ot R91.8 OTHER NONSPECIFIC ABNORMAL FINDING OF CORNELL 06/19/2019 ALFRED OWENS APRN Ot Z87.891 PERSONAL HISTORY OF NICOTINE DEPENDENCE 06/20/2019 ALFRED OWENS APRN Ot G47.33 OBSTRUCTIVE SLEEP APNEA (ADULT) (PEDIATR 06/20/2019 ALFRED OWENS APRN Ot I48.91 UNSPECIFIED ATRIAL FIBRILLATION 06/20/2019 ALFRED OWENS APRN Ot J30.9 ALLERGIC RHINITIS, UNSPECIFIED 06/20/2019 ALFRED OWENS APRN Ot Z98.890 OTHER SPECIFIED POSTPROCEDURAL STATES 06/28/2019 Alia HAN MD MESSI Ot G47.33 OBSTRUCTIVE SLEEP APNEA (ADULT) (PEDIATR 06/28/2019 GUILLE SCHAFER, Alia SWENSON Ot I48 .0 PAROXYSMAL ATRIAL FIBRILLATION 06/28/2019 GUILLE SCHAFER, Alia SWENSON Ot I49 .5 SICK SINUS SYNDROME 06/29/2019 GUILLE SCHAFER, Alia SWENSON Ot G47.33 OBSTRUCTIVE SLEEP APNEA (ADULT) (PEDIATR 06/29/2019 GUILLE SCHAFER, Alia SWENSON Ot I48 .0 PAROXYSMAL ATRIAL FIBRILLATION 06/29/2019 GUILLE SCHAFER, Alia SWENOSN Ot I49 .5 SICK SINUS SYNDROME 07/04/2019 GABE LEVY DO Ot G47. 33 OBSTRUCTIVE SLEEP APNEA (ADULT) (PEDIATR 07/06/2019 GABE LEVY DO Ot E78. 5 HYPERLIPIDEMIA, UNSPECIFIED 07/06/2019 GABE LEVY DO Ot G47. 33 OBSTRUCTIVE SLEEP APNEA (ADULT) (PEDIATR 07/06/2019 GABE LEVY DO Ot I10 ESSENTIAL (PRIMARY) HYPERTENSION 07/06/2019 GABE LEVY DO Ot I25. 10 ATHSCL HEART DISEASE OF [place] CORONARY 07/06/2019 GABE LEVY DO Ot I48. 91 UNSPECIFIED ATRIAL FIBRILLATION 07/06/2019 GABE LEVY DO Ot J30. 9 ALLERGIC RHINITIS, UNSPECIFIED 07/06/2019 GABE LEVY DO Ot Z90. 49 ACQUIRED ABSENCE OF OTHER SPECIFIED PART 07/06/2019 GABE LEVY DO Ot Z90.710 ACQUIRED ABSENCE OF BOTH CERVIX AND UTER 07/07/2019 GABE LEVY DO Ot E78. 5 HYPERLIPIDEMIA, UNSPECIFIED 07/07/2019 GABE LEVY DO Ot G47. 33 OBSTRUCTIVE SLEEP APNEA (ADULT) (PEDIATR 07/07/2019 GABE LEVY DO Ot I10 ESSENTIAL (PRIMARY) HYPERTENSION 07/07/2019 GABE LEVY DO Ot I25. 10 ATHSCL HEART DISEASE OF [place] CORONARY 07/07/2019 GABE LEVY DO Ot I48. 91 UNSPECIFIED ATRIAL FIBRILLATION 07/07/2019 GABE LEVY DO Ot J30. 9 ALLERGIC RHINITIS, UNSPECIFIED 07/07/2019 GABE LEVY DO Ot Z90. 49 ACQUIRED ABSENCE OF OTHER SPECIFIED PART 07/07/2019 GABE LEVY DO Alia Ot Z90.710 ACQUIRED ABSENCE OF BOTH CERVIX AND UTER 08/14/2019 Alia HAN MD Ot E66 .9 OBESITY, UNSPECIFIED 08/14/2019 Alia HAN MD, Ot E78 .5 HYPERLIPIDEMIA, UNSPECIFIED 08/14/2019 Alia HAN MD Ot G47.33 OBSTRUCTIVE SLEEP APNEA (ADULT) (PEDIATR 08/14/2019 Alia HAN MD, Ot I10 ESSENTIAL (PRIMARY) HYPERTENSION 08/14/2019 Alia HAN MD, Ot I25.10 ATHSCL HEART DISEASE OF [place] CORONARY 08/14/2019 Alia HAN MD Ot I48 .0 PAROXYSMAL ATRIAL FIBRILLATION 08/14/2019 Alia HAN MD, Ot J44 .9 CHRONIC OBSTRUCTIVE PULMONARY DISEASE, U 08/14/2019 Alia HAN MD Ot R00 .1 BRADYCARDIA, UNSPECIFIED 08/14/2019 Alia HAN MD, Ot Z68.41 BODY MASS INDEX (BMI) 40.0-44.9, ADULT 08/14/2019 Alia HAN MD, Ot 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 08/14/2019 Alia HAN MD, Ot Z87.891 PERSONAL HISTORY OF NICOTINE DEPENDENCE 08/14/2019 Alia HAN MD, Ot Z95 .1 PRESENCE OF AORTOCORONARY BYPASS GRAFT 08/14/2019 Alia HAN MD Ot Z99.81 DEPENDENCE ON SUPPLEMENTAL OXYGEN 09/02/2019 MALIKA HARRIS Ot E78.00 PURE HYPERCHOLESTEROLEMIA, UNSPECIFIED 09/02/2019 KIMBERLY, MALIKA INFECTIOUS DISEASES PHYSICIAN Ot F32.9 MAJOR DEPRESSIVE DISORDER, SINGLE EPISOD 09/02/2019 KIMBERLY, MALIKA INFECTIOUS DISEASES PHYSICIAN Ot F41.9 ANXIETY DISORDER, UNSPECIFIED 09/02/2019 KIMBERLY, MALKIA INFECTIOUS DISEASES PHYSICIAN Ot G47.30 SLEEP APNEA, UNSPECIFIED 09/02/2019 KIMBERLY, MALIKA INFECTIOUS DISEASES PHYSICIAN Ot I10 ESSENTIAL (PRIMARY) HYPERTENSION 09/02/2019 KIMBERLY, MALIKA INFECTIOUS DISEASES PHYSICIAN Ot I25.10 ATHSCL HEART DISEASE OF [place] CORONARY 09/02/2019 KIMBERLY, MALIKA INFECTIOUS DISEASES PHYSICIAN Ot I48.91 UNSPECIFIED ATRIAL FIBRILLATION 09/02/2019 KIMBERLY, MALIKA INFECTIOUS DISEASES PHYSICIAN Ot K21.9 GASTRO-ESOPHAGEAL REFLUX DISEASE WITHOUT 09/02/2019 KIMBERLY, MALIKA INFECTIOUS DISEASES PHYSICIAN Ot N39.0 URINARY TRACT INFECTION, SITE NOT SPECIF 09/02/2019 KIMBERLY, MALIKA INFECTIOUS DISEASES PHYSICIAN Ot R33.9 RETENTION OF URINE, UNSPECIFIED 09/02/2019 KIMBERLY, MALIKA INFECTIOUS DISEASES PHYSICIAN Ot 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 09/02/2019 KIMBERLY, MALIKA INFECTIOUS DISEASES PHYSICIAN Ot Z79.51 SEAMING MACHINE OPERATOR (CURRENT) USE OF INHALED STERO 09/02/2019 KIMBERLY, MALIKA INFECTIOUS DISEASES PHYSICIAN Ot Z82.49 FAMILY HX OF ISCHEM HEART DIS AND OTH DI 09/02/2019 KIMBERLY, MALIKA INFECTIOUS DISEASES PHYSICIAN Ot Z87.891 PERSONAL HISTORY OF NICOTINE DEPENDENCE 09/02/2019 KIMBERLY, MALIKA INFECTIOUS DISEASES PHYSICIAN Ot Z88.0 ALLERGY STATUS TO PENICILLIN 09/02/2019 KIMBERLY, MALIKA INFECTIOUS DISEASES PHYSICIAN Ot Z91.041 RADIOGRAPHIC DYE ALLERGY STATUS 09/02/2019 KIMBERLY, MALIKA INFECTIOUS DISEASES PHYSICIAN Ot Z95.1 PRESENCE OF AORTOCORONARY BYPASS GRAFT 09/02/2019 KIMBERLY, MALIKA INFECTIOUS DISEASES PHYSICIAN Ot Z99.89 DEPENDENCE ON OTHER ENABLING MACHINES AN 09/06/2019 KIMBERLY, MALIKA INFECTIOUS DISEASES PHYSICIAN Ot E78.00 PURE HYPERCHOLESTEROLEMIA, UNSPECIFIED 09/06/2019 KIMBERLY, MALIKA INFECTIOUS DISEASES PHYSICIAN Ot F32.9 MAJOR DEPRESSIVE DISORDER, SINGLE EPISOD 09/06/2019 KIMBERLY, MALIKA INFECTIOUS DISEASES PHYSICIAN Ot F41.9 ANXIETY DISORDER, UNSPECIFIED 09/06/2019 KIMBERLY, MALIKA INFECTIOUS DISEASES PHYSICIAN Ot G47.30 SLEEP APNEA, UNSPECIFIED 09/06/2019 KIMBERLY, MALIKA INFECTIOUS DISEASES PHYSICIAN Ot I10 ESSENTIAL (PRIMARY) HYPERTENSION 09/06/2019 KIMBERLY, MALIKA INFECTIOUS DISEASES PHYSICIAN Ot I25.10 ATHSCL HEART DISEASE OF [place] CORONARY 09/06/2019 KIMBERLY, MALIKA INFECTIOUS DISEASES PHYSICIAN Ot I48.91 UNSPECIFIED ATRIAL FIBRILLATION 09/06/2019 KIMBERLY, MALIKA INFECTIOUS DISEASES PHYSICIAN Ot K21.9 GASTRO-ESOPHAGEAL REFLUX DISEASE WITHOUT 09/06/2019 KIMBERLY, MALIKA INFECTIOUS DISEASES PHYSICIAN Ot N39.0 URINARY TRACT INFECTION, SITE NOT SPECIF 09/06/2019 KIMBERLY, MALIKA INFECTIOUS DISEASES PHYSICIAN Ot R33.9 RETENTION OF URINE, UNSPECIFIED 09/06/2019 KIMBERLY, MALIKA INFECTIOUS DISEASES PHYSICIAN Ot 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 09/06/2019 KIMBERLY, MALIKA INFECTIOUS DISEASES PHYSICIAN Ot Z79.51 NURSING HOME (CURRENT) USE OF INHALED STERO 09/06/2019 KIMBERLY, MALIKA INFECTIOUS DISEASES PHYSICIAN Ot Z82.49 FAMILY HX OF ISCHEM HEART DIS AND OTH DI 09/06/2019 KIMBERLY, MALIKA INFECTIOUS DISEASES PHYSICIAN Ot Z87.891 PERSONAL HISTORY OF NICOTINE DEPENDENCE 09/06/2019 KIMBERLY, MALIKA INFECTIOUS DISEASES PHYSICIAN Ot Z88.0 ALLERGY STATUS TO PENICILLIN 09/06/2019 KIMBERLY, MALIKA INFECTIOUS DISEASES PHYSICIAN Ot Z91.041 RADIOGRAPHIC DYE ALLERGY STATUS 09/06/2019 KIMBERLY, MALIKA INFECTIOUS DISEASES PHYSICIAN Ot Z95.1 PRESENCE OF AORTOCORONARY BYPASS GRAFT 09/06/2019 KIMBERLY, MALIKA INFECTIOUS DISEASES PHYSICIAN Ot Z99.89 DEPENDENCE ON OTHER ENABLING MACHINES AN 09/09/2019 KIMBERLY, MALIKA INFECTIOUS DISEASES PHYSICIAN Ot E78.00 PURE HYPERCHOLESTEROLEMIA, UNSPECIFIED 09/09/2019 KIMBERLY, MALIKA INFECTIOUS DISEASES PHYSICIAN Ot F32.9 MAJOR DEPRESSIVE DISORDER, SINGLE EPISOD 09/09/2019 KIMBERLY, MALIKA INFECTIOUS DISEASES PHYSICIAN Ot F41.9 ANXIETY DISORDER, UNSPECIFIED 09/09/2019 KIMBERLY, MALIKA INFECTIOUS DISEASES PHYSICIAN Ot G47.30 SLEEP APNEA, UNSPECIFIED 09/09/2019 KIMBERLY, MALIKA INFECTIOUS DISEASES PHYSICIAN Ot I10 ESSENTIAL (PRIMARY) HYPERTENSION 09/09/2019 KIMBERLY, MALIKA INFECTIOUS DISEASES PHYSICIAN Ot I25.10 ATHSCL HEART DISEASE OF [place] CORONARY 09/09/2019 KIMBERLY, MALIKA INFECTIOUS DISEASES PHYSICIAN Ot I48.91 UNSPECIFIED ATRIAL FIBRILLATION 09/09/2019 KIMBERLY, MALIKA INFECTIOUS DISEASES PHYSICIAN Ot K21.9 GASTRO-ESOPHAGEAL REFLUX DISEASE WITHOUT 09/09/2019 KIMBERLY, MALIKA INFECTIOUS DISEASES PHYSICIAN Ot N39.0 URINARY TRACT INFECTION, SITE NOT SPECIF 09/09/2019 KIMBERLY, MALIKA INFECTIOUS DISEASES PHYSICIAN Ot R33.9 RETENTION OF URINE, UNSPECIFIED 09/09/2019 KIMBERLY, MALIKA INFECTIOUS DISEASES PHYSICIAN Ot Z79.01 NURSING HOME (CURRENT) USE OF ANTICOAGULANT 09/09/2019 KIMBERLY, MALIKA INFECTIOUS DISEASES PHYSICIAN Ot Z79.51 NURSING HOME (CURRENT) USE OF INHALED STERO 09/09/2019 KIMBERLY, MALIKA INFECTIOUS DISEASES PHYSICIAN Ot Z82.49 FAMILY HX OF ISCHEM HEART DIS AND OTH DI 09/09/2019 KIMBERLY, MALIKA INFECTIOUS DISEASES PHYSICIAN Ot Z87.891 PERSONAL HISTORY OF NICOTINE DEPENDENCE 09/09/2019 KIMBERLY, MALIKA INFECTIOUS DISEASES PHYSICIAN Ot Z88.0 ALLERGY STATUS TO PENICILLIN 09/09/2019 MALIKA HARRISP Ot Z91.041 RADIOGRAPHIC DYE ALLERGY STATUS 09/09/2019 MALIKA HARRISP Ot Z95.1 PRESENCE OF AORTOCORONARY BYPASS GRAFT 09/09/2019 MALIKA HARRIS Ot Z99.89 DEPENDENCE ON OTHER ENABLING MACHINES AN 09/22/2019 W E55.9 Maribell min D deficiency, unspecified Alis Gloria 09/22/2019 W I10 Essent ial (primary) hypertension Neymar Gloriaie 09/22/2019 W M54.5 Low back pain Gloria Alis 09/22/2019 W Z86.79 Atr ial fibrillation, currently in sinus rhythm Jb Alis 09/29/2019 MOHSEN MORRIS MD Ot I48. 91 UNSPECIFIED ATRIAL FIBRILLATION 10/18/2019 MOHSEN MORRIS MD, Ot I48. 91 UNSPECIFIED ATRIAL FIBRILLATION 11/26/2019 MOHSEN MORRIS MD, Ot I48. 91 UNSPECIFIED ATRIAL FIBRILLATION 11/28/2019 MOHSEN MORRIS MD Ot I48. 91 UNSPECIFIED ATRIAL FIBRILLATION 11/28/2019 MARU TAVERAS Ot E78.2 MIXED HYPERLIPIDEMIA 11/28/2019 MARU TAVERAS Ot I10 ESSENTIAL (PRIMARY) HYPERTENSION 11/28/2019 MARU TAVERAS Ot I25.10 ATHSCL HEART DISEASE OF [place] CORONARY 11/28/2019 MARU TAVERAS Ot R07.89 OTHER CHEST PAIN 11/28/2019 Alia HAN MD Ot G47.33 OBSTRUCTIVE SLEEP APNEA (ADULT) (PEDIATR 11/28/2019 Alia HAN MD Ot I48 .0 PAROXYSMAL ATRIAL FIBRILLATION 11/28/2019 Alia HAN MD Ot I49 .5 SICK SINUS SYNDROME 11/28/2019 Ot I48.91 UNS PECIFIED ATRIAL FIBRILLATION 12/01/2019 IRIS EWING MD Ot Z01.8 18 ENCOUNTER FOR OTHER PREPROCEDURAL EXAMIN 12/01/2019 IRIS EWING MD Ot Z11.5 9 ENCOUNTER FOR SCREENING FOR OTHER VIRAL 12/05/2019 IRIS EWING MD Ot E66.0 1 MORBID (SEVERE) OBESITY DUE TO EXCESS CA 12/05/2019 IRIS EWING MD Ot E78.5 HYPERLIPIDEMIA, UNSPECIFIED 12/05/2019 IRIS EWING MD, Ot F32.9 MAJOR DEPRESSIVE DISORDER, SINGLE EPISOD 12/05/2019 IRIS EWING MD, Ot G47.3 3 OBSTRUCTIVE SLEEP APNEA (ADULT) (PEDIATR 12/05/2019 IRIS EWING MD, Ot I10 ESSENTIAL (PRIMARY) HYPERTENSION 12/05/2019 IRIS EWING MD, Ot I25.1 0 ATHSCL HEART DISEASE OF [place] CORONARY 12/05/2019 IRIS EWING MD, Ot I48.9 1 UNSPECIFIED ATRIAL FIBRILLATION 12/05/2019 IRIS EWING MD, Ot J44.9 CHRONIC OBSTRUCTIVE PULMONARY DISEASE, U 12/05/2019 IRIS EWING MD, Ot K21.9 GASTRO-ESOPHAGEAL REFLUX DISEASE WITHOUT 12/05/2019 IRIS EWING MD Ot N32.8 1 OVERACTIVE BLADDER 12/05/2019 IRIS EWING MD, Ot N39.4 1 URGE INCONTINENCE 12/05/2019 IRIS EWING MD, Ot Z68.4 1 BODY MASS INDEX (BMI) 40.0-44.9, ADULT 12/05/2019 IRIS EWING MD, Ot 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 12/05/2019 IRIS EWING MD, Ot Z87.8 91 PERSONAL HISTORY OF NICOTINE DEPENDENCE 12/05/2019 IRIS EWING MD Ot Z88.0 ALLERGY STATUS TO PENICILLIN 12/05/2019 IRIS EWING MD Ot Z88.1 ALLERGY STATUS TO OTHER ANTIBIOTIC AGENT 12/05/2019 IRIS EWING MD Ot Z90.4 9 ACQUIRED ABSENCE OF OTHER SPECIFIED PART 12/05/2019 IRIS EWING MD, Ot Z90.7 10 ACQUIRED ABSENCE OF BOTH CERVIX AND UTER 12/05/2019 IRIS EWING MD, Ot Z91.0 41 RADIOGRAPHIC DYE ALLERGY STATUS 12/05/2019 IRIS EWING MD, Ot Z95.1 PRESENCE OF AORTOCORONARY BYPASS GRAFT 12/07/2019 IRIS EWING MD, Ot E66.0 1 MORBID (SEVERE) OBESITY DUE TO EXCESS CA 12/07/2019 IRIS EWING MD, Ot E78.5 HYPERLIPIDEMIA, UNSPECIFIED 12/07/2019 IRIS EWING MD Ot F32.9 MAJOR DEPRESSIVE DISORDER, SINGLE EPISOD 12/07/2019 IRIS EWING MD, Ot G47.3 3 OBSTRUCTIVE SLEEP APNEA (ADULT) (PEDIATR 12/07/2019 IRIS EWING MD Ot I10 ESSENTIAL (PRIMARY) HYPERTENSION 12/07/2019 IRIS EWING MD, Ot I25.1 0 ATHSCL HEART DISEASE OF [place] CORONARY 12/07/2019 IRIS EWING MD, Ot I48.9 1 UNSPECIFIED ATRIAL FIBRILLATION 12/07/2019 IRIS EWING MD, Ot J44.9 CHRONIC OBSTRUCTIVE PULMONARY DISEASE, U 12/07/2019 IRIS EWING MD, Ot K21.9 GASTRO-ESOPHAGEAL REFLUX DISEASE WITHOUT 12/07/2019 IRIS EWING MD Ot N32.8 1 OVERACTIVE BLADDER 12/07/2019 IRIS EWING MD, Ot N39.4 1 URGE INCONTINENCE 12/07/2019 IRIS EWING MD, Ot Z68.4 1 BODY MASS INDEX (BMI) 40.0-44.9, ADULT 12/07/2019 IRIS EWING MD, Ot 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 12/07/2019 IRIS EWING MD, Ot Z87.8 91 PERSONAL HISTORY OF NICOTINE DEPENDENCE 12/07/2019 IRIS EWING MD Ot Z88.0 ALLERGY STATUS TO PENICILLIN 12/07/2019 IRIS EWING MD, Ot Z88.1 ALLERGY STATUS TO OTHER ANTIBIOTIC AGENT 12/07/2019 IRIS EWING MD Ot Z90.4 9 ACQUIRED ABSENCE OF OTHER SPECIFIED PART 12/07/2019 IRIS EWING MD Ot Z90.7 10 ACQUIRED ABSENCE OF BOTH CERVIX AND UTER 12/07/2019 IRIS EWING MD Ot Z91.0 41 RADIOGRAPHIC DYE ALLERGY STATUS 12/07/2019 IRIS EWING MD Ot Z95.1 PRESENCE OF AORTOCORONARY BYPASS GRAFT 12/07/2019 IRIS EWING MD, Ot E66.0 1 MORBID (SEVERE) OBESITY DUE TO EXCESS CA 12/07/2019 IRIS EIWNG MD Ot E78.5 HYPERLIPIDEMIA, UNSPECIFIED 12/07/2019 IRIS EWING MD, Ot F32.9 MAJOR DEPRESSIVE DISORDER, SINGLE EPISOD 12/07/2019 IRIS EWING MD, Ot G47.3 3 OBSTRUCTIVE SLEEP APNEA (ADULT) (PEDIATR 12/07/2019 IRIS EWING MD Ot I10 ESSENTIAL (PRIMARY) HYPERTENSION 12/07/2019 IRIS EWING MD, Ot I25.1 0 ATHSCL HEART DISEASE OF [place] CORONARY 12/07/2019 IRIS EWING MD, Ot I48.9 1 UNSPECIFIED ATRIAL FIBRILLATION 12/07/2019 IRIS EWING MD, Ot J44.9 CHRONIC OBSTRUCTIVE PULMONARY DISEASE, U 12/07/2019 IRIS EWING MD, Ot K21.9 GASTRO-ESOPHAGEAL REFLUX DISEASE WITHOUT 12/07/2019 IRIS EWING MD, Ot N32.8 1 OVERACTIVE BLADDER 12/07/2019 IRIS EWING MD, Ot N39.4 1 URGE INCONTINENCE 12/07/2019 IRIS EWING MD, Ot Z68.4 1 BODY MASS INDEX (BMI) 40.0-44.9, ADULT 12/07/2019 IRIS EWING MD, Ot 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 12/07/2019 IRIS EWING MD, Ot Z87.8 91 PERSONAL HISTORY OF NICOTINE DEPENDENCE 12/07/2019 IRIS EWING MD, Ot Z88.0 ALLERGY STATUS TO PENICILLIN 12/07/2019 IRIS EWING MD, Ot Z88.1 ALLERGY STATUS TO OTHER ANTIBIOTIC AGENT 12/07/2019 IRIS EWING MD Ot Z90.4 9 ACQUIRED ABSENCE OF OTHER SPECIFIED PART 12/07/2019 IRIS EWING MD, Ot Z90.7 10 ACQUIRED ABSENCE OF BOTH CERVIX AND UTER 12/07/2019 IRIS EWING MD, Ot Z91.0 41 RADIOGRAPHIC DYE ALLERGY STATUS 12/07/2019 IRIS EWING MD, Ot Z95.1 PRESENCE OF AORTOCORONARY BYPASS GRAFT 01/02/2020 W I10 Essent ial (primary) hypertension Alis Gloria 01/02/2020 W M54.2 Neck pain Michael Gloriahanie 01/02/2020 W M54.5 Low back pain Gloria, Alis 01/02/2020 W R49.0 Hoar seness Jb, Alis 01/03/2020 W I10 Essent ial (primary) hypertension Jb, Alis 01/03/2020 W M54.2 Neck pain Jb, Alis 01/03/2020 W M54.5 Low back pain Gloria, Alis 01/03/2020 W R49.0 Hoar seness Jb, Alis 01/16/2020 W E55.9 Maribell min D deficiency, unspecified Gloria, Alis 01/16/2020 W I10 Essent ial (primary) hypertension Neymar Gloriaie 01/16/2020 W I48.0 Paro xysmal atrial fibrillation Neymar Gloria01/16/2020 W 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, 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 Gloria, Alis 01/17/2020 W D64.9 Anem ia, unspecified Jb, Alis 01/19/2020 W E55.9 Maribell min D deficiency, unspecified Golria, Alis 01/19/2020 W I10 Essent ial (primary) hypertension Neymar Gloria01/19/2020 W I48.0 Paro xysmal atrial fibrillation Neymar Gloria01/19/2020 W 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, 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 Gloria, Alis 01/19/2020 W D64.9 Anem ia, unspecified Alis Gloria Procedures Code Description Performed By Per formed On [id number] RE STORATION OF CARDIAC RHYTHM, SINGLE 11/10/2017 [id number] RE STORATION OF CARDIAC RHYTHM, SINGLE 04/03/2018 Results Test Result Range Complete blood count (CBC) with automate d white blood cell (WBC) differential - 08/01/16 12:04 Blood leukocytes automated count (number/volume) 6.7 10*3/uL 4.3-11.0 Blood erythrocytes automated count (number/volume) 4.62 10*6/uL 4.35-5.85 Venous blood hemoglobin measurement (mass/volume) 12.4 g/dL 11.5-16.0 Blood hematocrit (volume fraction) 39 % 35-52 Automated erythrocyte mean corpuscular volume 84 [ foz_us] 80-99 Automated erythrocyte mean corpuscular h emoglobin (mass per erythrocyte) 27 pg 25-34 Automated erythrocyte mean corpuscular h emoglobin concentration measurement (mass/volume) 32 g/dL 32-36 Automated erythrocyte distribution width ratio 14. 5 % 10.0- 14.5 Automated blood platelet count (count/volume) 219 10*3/uL [...] 10*3 1.0-4.0 Blood monocytes automated count (number/volume) 0. 6 10*3 0.0-1.0 Automated eosinophil count 0.2 10*3/uL 0 .0-0.3 Automated blood basophil count (count/volume) 0.0 10*3/uL 0.0-0.1 PT panel in platelet poor plasma by coag ulation assay - 08/01/16 12:04 Prothrombin time (PT) in platelet poor plasma by coagu lation assay 11.9 s 12.2-14.7 INR in platelet poor plasma or blood by coagulation as say 0.9 0.8-1.4 Activated partial thromboplastin time (a PTT) in platelet poor plasma bycoagulation assay - 08/01/16 12:04 Activated partial thromboplastin time (a PTT) in platelet poor plasma bycoagulation assay 26 s 24-35 Comprehensive metabolic panel - 08/01/16 12:04 Serum or plasma sodium measurement (moles/volume) 139 mmol/L 135-145 Serum or plasma potassium measurement (moles/volume) 4.4 mmol/L 3.6-5.0 Serum or plasma chloride measurement (moles/volume) 106 mmol/L 98-107 Carbon dioxide 23 mmol/L 21-32 Serum or plasma anion gap determination (moles/volume) 10 mmol/L 5-14 Serum or plasma urea nitrogen measurement (mass/volume ) 11 mg/dL 7-18 Serum or plasma creatinine measurement (mass/volume) 0.78 mg/dL 0.60-1.30 Serum or plasma urea nitrogen/creatinine mass ratio 14 NRG Serum or plasma creatinine measurement w ith calculation of estimated glomerular filtration rate > NRG Serum or plasma glucose measurement (mass/volume) 103 mg/dL 70-105 Serum or plasma calcium measurement (mass/volume) 8.8 mg/dL 8.5-10.1 Serum or plasma total bilirubin measurement (mass/volu me) 0.4 mg/dL 0.1-1.0 Serum or plasma alkaline phosphatase miko surement (enzymatic activity/volume) 75 U/L 40-136 Serum or plasma aspartate aminotransfera se measurement (enzymatic activity/volume) 20 U/L 5-34 Serum or plasma alanine aminotransferase measurement (enzymatic activity/volume) 11 U/L 0-55 Serum or plasma protein measurement (mass/volume) 6.6 g/dL 6.4-8.2 Serum or plasma albumin measurement (mass/volume) 3.8 g/dL 3.2-4.5 Magnesium - 08/01/16 12:04 Magnesium 2.0 mg/dL 1.8-2.4 Serum or plasma troponin i.cardiac measu rement (mass/volume) - 08/01/16 12:04 Serum or plasma troponin i.cardiac measurement (mass/v olume) < ng/mL <0.30 Myoglobin, serum - 08/01/16 12:04 Myoglobin, serum 33.9 ng/mL 10.0-92.0 Complete blood count (CBC) with automate d white blood cell (WBC) differential - 08/25/16 08:50 Blood leukocytes automated count (number/volume) 5.3 10*3/uL 4.3-11.0 Blood erythrocytes automated count (number/volume) 4.68 10*6/uL 4.35-5.85 Venous blood hemoglobin measurement (mass/volume) 12.6 g/dL 11.5-16.0 Blood hematocrit (volume fraction) 39 % 35-52 Automated erythrocyte mean corpuscular volume 84 [ foz_us] 80-99 Automated erythrocyte mean corpuscular h emoglobin (mass per erythrocyte) 27 pg 25-34 Automated erythrocyte mean corpuscular h emoglobin concentration measurement (mass/volume) 32 g/dL 32-36 Automated erythrocyte distribution width ratio 14. 9 % 10.0- 14.5 Automated blood platelet count (count/volume) 234 10*3/uL [...] 10*3 1.0-4.0 Blood monocytes automated count (number/volume) 0. 4 10*3 0.0-1.0 Automated eosinophil count 0.2 10*3/uL 0 .0-0.3 Automated blood basophil count (count/volume) 0.0 10*3/uL 0.0-0.1 Comprehensive metabolic panel - 08/25/16 08:50 Serum or plasma sodium measurement (moles/volume) 144 mmol/L 135-145 Serum or plasma potassium measurement (moles/volume) 4.2 mmol/L 3.6-5.0 Serum or plasma chloride measurement (moles/volume) 109 mmol/L 98-107 Carbon dioxide 24 mmol/L 21-32 Serum or plasma anion gap determination (moles/volume) 11 mmol/L 5-14 Serum or plasma urea nitrogen measurement (mass/volume ) 15 mg/dL 7-18 Serum or plasma creatinine measurement (mass/volume) 0.81 mg/dL 0.60-1.30 Serum or plasma urea nitrogen/creatinine mass ratio 19 NRG Serum or plasma creatinine measurement w ith calculation of estimated glomerular filtration rate > NRG Serum or plasma glucose measurement (mass/volume) 116 mg/dL 70-105 Serum or plasma calcium measurement (mass/volume) 8.5 mg/dL 8.5-10.1 Serum or plasma total bilirubin measurement (mass/volu me) 0.4 mg/dL 0.1-1.0 Serum or plasma alkaline phosphatase miko surement (enzymatic activity/volume) 78 U/L 40-136 Serum or plasma aspartate aminotransfera se measurement (enzymatic activity/volume) 18 U/L 5-34 Serum or plasma alanine aminotransferase measurement (enzymatic activity/volume) 10 U/L 0-55 Serum or plasma protein measurement (mass/volume) 6.6 g/dL 6.4-8.2 Serum or plasma albumin measurement (mass/volume) 3.8 g/dL 3.2-4.5 Magnesium - 08/25/16 08:50 Magnesium 1.9 mg/dL 1.8-2.4 Lipase - 08/25/16 08:50 Lipase 32 U/L 8-78 Serum or plasma lithium measurement (mol es/volume) - 08/25/16 08:50 BNP level 102.4 pg/mL <100.0 PT panel in platelet poor plasma by coag ulation assay - 08/25/16 08:50 Prothrombin time (PT) in platelet poor plasma by coagu lation assay 13.0 s 12.2-14.7 INR in platelet poor plasma or blood by coagulation as say 1.0 0.8-1.4 Activated partial thromboplastin time (a PTT) in platelet poor plasma bycoagulation assay - 08/25/16 08:50 Activated partial thromboplastin time (a PTT) in platelet poor plasma bycoagulation assay 24 s 24-35 Complete urinalysis with reflex to cultu re - 08/25/16 10:05 Urine color determination YELLOW NRG Urine clarity determination CLEAR NR G Urine pH measurement by test strip 7 5-9 Specific gravity of urine by test strip 1.010 1.016-1.022 Urine protein assay by test strip, semi-quantitative NEGATIVE NEGATIVE Urine glucose detection by automated test strip NE GATIVE NEGATIVE Erythrocytes detection in urine sediment by light micr oscopy NEGATIVE NEGATIVE Urine ketones detection by automated test strip NE GATIVE NEGATIVE Urine nitrite detection by test strip NEGATIVE NEGATIVE Urine total bilirubin detection by test strip NEGA TIVE NEGATIVE Urine urobilinogen measurement by automated test strip (mass/volume) NORMAL NORMAL Urine leukocyte esterase detection by dipstick NEG ATIVE NEGATIVE Automated urine sediment erythrocyte cou nt by microscopy (number/high power field) NONE NRG Automated urine sediment leukocyte count by microscopy (number/high power field) NONE NRG Bacteria detection in urine sediment by light microsco py NEGATIVE NRG Squamous epithelial cells detection in u rine sediment by light microscopy TNTC NRG Crystals detection in urine sediment by light microsco py NONE NRG Casts detection in urine sediment by light microscopy NONE NRG Mucus detection in urine sediment by light microscopy NEGATIVE NRG Complete urinalysis with reflex to culture NO NRG Automated blood complete blood count (he mogram) panel - 08/26/16 05:57 Blood leukocytes automated count (number/volume) 5.0 10*3/uL 4.3-11.0 Blood erythrocytes automated count (number/volume) 4.34 10*6/uL 4.35-5.85 Venous blood hemoglobin measurement (mass/volume) 11.7 g/dL 11.5-16.0 Blood hematocrit (volume fraction) 36 % 35-52 Automated erythrocyte mean corpuscular volume 83 [ foz_us] 80-99 Automated erythrocyte mean corpuscular h emoglobin (mass per erythrocyte) 27 pg 25-34 Automated erythrocyte mean corpuscular h emoglobin concentration measurement (mass/volume) 32 g/dL 32-36 Automated erythrocyte distribution width ratio 14. 9 % 10.0- 14.5 Automated blood platelet count (count/volume) 222 10*3/uL 130-400 Automated blood platelet mean volume measurement 11.0 [foz_us] 7.4-10.4 Whole blood basic metabolic panel - 08/11 05:57 Serum or plasma sodium measurement (moles/volume) 140 mmol/L 135-145 Serum or plasma potassium measurement (moles/volume) 4.0 mmol/L 3.6-5.0 Serum or plasma chloride measurement (moles/volume) 108 mmol/L 98-107 Carbon dioxide 22 mmol/L 21-32 Serum or plasma anion gap determination (moles/volume) 10 mmol/L 5-14 Serum or plasma urea nitrogen measurement (mass/volume ) 11 mg/dL 7-18 Serum or plasma creatinine measurement (mass/volume) 0.80 mg/dL 0.60-1.30 Serum or plasma urea nitrogen/creatinine mass ratio 14 NRG Serum or plasma creatinine measurement w ith calculation of estimated glomerular filtration rate > NRG Serum or plasma glucose measurement (mass/volume) 134 mg/dL 70-105 Serum or plasma calcium measurement (mass/volume) 8.5 mg/dL 8.5-10.1 Complete urinalysis with reflex to cultu re - 03/10/17 08:04 Urine color determination YELLOW NRG Urine clarity determination CLEAR NR G Urine pH measurement by test strip 5 5-9 Specific gravity of urine by test strip 1.020 1.016-1.022 Urine protein assay by test strip, semi-quantitative NEGATIVE NEGATIVE Urine glucose detection by automated test strip NE GATIVE NEGATIVE Erythrocytes detection in urine sediment by light micr oscopy NEGATIVE NEGATIVE Urine ketones detection by automated test strip NE GATIVE NEGATIVE Urine nitrite detection by test strip NEGATIVE NEGATIVE Urine total bilirubin detection by test strip NEGA TIVE NEGATIVE Urine urobilinogen measurement by automated test strip (mass/volume) NORMAL NORMAL Urine leukocyte esterase detection by dipstick NEG ATIVE NEGATIVE Automated urine sediment erythrocyte cou nt by microscopy (number/high power field) NONE NRG Automated urine sediment leukocyte count by microscopy (number/high power field) NONE NRG Bacteria detection in urine sediment by light microsco py TRACE NRG Squamous epithelial cells detection in u rine sediment by light microscopy 0-2 NRG Crystals detection in urine sediment by light microsco py NONE NRG Casts detection in urine sediment by light microscopy NONE NRG Mucus detection in urine sediment by light microscopy MODERATE NRG Complete urinalysis with reflex to culture NO NRG Automated blood complete blood count (he mogram) panel - 03/10/17 08:11 Blood leukocytes automated count (number/volume) 6.1 10*3/uL 4.3-11.0 Blood erythrocytes automated count (number/volume) 4.68 10*6/uL 4.35-5.85 Venous blood hemoglobin measurement (mass/volume) 12.7 g/dL 11.5-16.0 Blood hematocrit (volume fraction) 40 % 35-52 Automated erythrocyte mean corpuscular volume 86 [ foz_us] 80-99 Automated erythrocyte mean corpuscular h emoglobin (mass per erythrocyte) 27 pg 25-34 Automated erythrocyte mean corpuscular h emoglobin concentration measurement (mass/volume) 32 g/dL 32-36 Automated erythrocyte distribution width ratio 15. 4 % 10.0- 14.5 Automated blood platelet count (count/volume) 221 10*3/uL [...] 5-14 Serum or plasma urea nitrogen measurement (mass/volume ) 16 mg/dL 7-18 Serum or plasma creatinine measurement (mass/volume) 0.95 mg/dL 0.60-1.30 Serum or plasma urea nitrogen/creatinine mass ratio 17 NRG Serum or plasma creatinine measurement w ith calculation of estimated glomerular filtration rate 58 NRG Serum or plasma glucose measurement (mass/volume) 94 mg/dL 70-105 Serum or plasma calcium measurement (mass/volume) 9.1 mg/dL 8.5-10.1 Serum or plasma total bilirubin measurement (mass/volu me) 0.8 mg/dL 0.1-1.0 Serum or plasma alkaline phosphatase miko surement (enzymatic activity/volume) 77 U/L 40-136 Serum or plasma aspartate aminotransfera se measurement (enzymatic activity/volume) 17 U/L 5-34 Serum or plasma alanine aminotransferase measurement (enzymatic activity/volume) 11 U/L 0-55 Serum or plasma protein measurement (mass/volume) 6.4 g/dL 6.4-8.2 Serum or plasma albumin measurement (mass/volume) 3.8 g/dL 3.2-4.5 PT panel in platelet poor plasma by coag ulation assay - 03/10/17 08:11 Prothrombin time (PT) in platelet poor plasma by coagu lation assay 14.0 s 12.2-14.7 INR in platelet poor plasma or blood by coagulation as say 1.1 0.8-1.4 Activated partial thromboplastin time (a PTT) in platelet poor plasma bycoagulation assay - 03/10/17 08:11 Activated partial thromboplastin time (a PTT) in platelet poor plasma bycoagulation assay 28 s 24-35 Methicillin resistant Staphylococcus aur eus (MRSA) screening culture - 03/10/17 08:11 Methicillin resistant Staphylococcus aureus (MRSA) scr eening culture NEG NRG Complete blood count (CBC) with automate d white blood cell (WBC) differential - 04/20/17 14:15 Blood leukocytes automated count (number/volume) 4.5 10*3/uL 4.3-11.0 Blood erythrocytes automated count (number/volume) 4.84 10*6/uL 4.35-5.85 Venous blood hemoglobin measurement (mass/volume) 13.1 g/dL 11.5-16.0 Blood hematocrit (volume fraction) 42 % 35-52 Automated erythrocyte mean corpuscular volume 86 [ foz_us] 80-99 Automated erythrocyte mean corpuscular h emoglobin (mass per erythrocyte) 27 pg 25-34 Automated erythrocyte mean corpuscular h emoglobin concentration measurement (mass/volume) 32 g/dL 32-36 Automated erythrocyte distribution width ratio 16. 0 % 10.0- 14.5 Automated blood platelet count (count/volume) 229 10*3/uL [...] 10*3 1.0-4.0 Blood monocytes automated count (number/volume) 0. 4 10*3 0.0-1.0 Automated eosinophil count 0.2 10*3/uL 0 .0-0.3 Automated blood basophil count (count/volume) 0.0 10*3/uL 0.0-0.1 PT panel in platelet poor plasma by coag ulation assay - 04/20/17 14:15 Prothrombin time (PT) in platelet poor plasma by coagu lation assay 15.4 s 12.2-14.7 INR in platelet poor plasma or blood by coagulation as say 1.2 0.8-1.4 Activated partial thromboplastin time (a PTT) in platelet poor plasma bycoagulation assay - 04/20/17 14:15 Activated partial thromboplastin time (a PTT) in platelet poor plasma bycoagulation assay 30 s 24-35 Comprehensive metabolic panel - 04/20/17 14:15 Serum or plasma sodium measurement (moles/volume) 138 mmol/L 135-145 Serum or plasma potassium measurement (moles/volume) 4.2 mmol/L 3.6-5.0 Serum or plasma chloride measurement (moles/volume) 104 mmol/L 98-107 Carbon dioxide 24 mmol/L 21-32 Serum or plasma anion gap determination (moles/volume) 10 mmol/L 5-14 Serum or plasma urea nitrogen measurement (mass/volume ) 13 mg/dL 7-18 Serum or plasma creatinine measurement (mass/volume) 1.02 mg/dL 0.60-1.30 Serum or plasma urea nitrogen/creatinine mass ratio 13 NRG Serum or plasma creatinine measurement w ith calculation of estimated glomerular filtration rate 53 NRG Serum or plasma glucose measurement (mass/volume) 105 mg/dL 70-105 Serum or plasma calcium measurement (mass/volume) 8.9 mg/dL 8.5-10.1 Serum or plasma total bilirubin measurement (mass/volu me) 0.7 mg/dL 0.1-1.0 Serum or plasma alkaline phosphatase miko surement (enzymatic activity/volume) 75 U/L 40-136 Serum or plasma aspartate aminotransfera se measurement (enzymatic activity/volume) 17 U/L 5-34 Serum or plasma alanine aminotransferase measurement (enzymatic activity/volume) 12 U/L 0-55 Serum or plasma protein measurement (mass/volume) 6.7 g/dL 6.4-8.2 Serum or plasma albumin measurement (mass/volume) 3.8 g/dL 3.2-4.5 Magnesium - 04/20/17 14:15 Magnesium 1.9 mg/dL 1.8-2.4 Serum or plasma troponin i.cardiac measu rement (mass/volume) - 04/20/17 14:15 Serum or plasma troponin i.cardiac measurement (mass/v olume) < ng/mL <0.30 Myoglobin, serum - 04/20/17 14:15 Myoglobin, serum 42.1 ng/mL 10.0-92.0 Serum or plasma lithium measurement (mol es/volume) - 04/20/17 14:15 BNP level 475.1 pg/mL <100.0 Automated blood complete blood count (he mogram) panel - 04/28/17 07:42 Blood leukocytes automated count (number/volume) 6.0 10*3/uL 4.3-11.0 Blood erythrocytes automated count (number/volume) 4.84 10*6/uL 4.35-5.85 Venous blood hemoglobin measurement (mass/volume) 13.2 g/dL 11.5-16.0 Blood hematocrit (volume fraction) 42 % 35-52 Automated erythrocyte mean corpuscular volume 86 [ foz_us] 80-99 Automated erythrocyte mean corpuscular h emoglobin (mass per erythrocyte) 27 pg 25-34 Automated erythrocyte mean corpuscular h emoglobin concentration measurement (mass/volume) 32 g/dL 32-36 Automated erythrocyte distribution width ratio 16. 2 % 10.0- 14.5 Automated blood platelet count (count/volume) 219 10*3/uL [...] 5-14 Serum or plasma urea nitrogen measurement (mass/volume ) 14 mg/dL 7-18 Serum or plasma creatinine measurement (mass/volume) 1.10 mg/dL 0.60-1.30 Serum or plasma urea nitrogen/creatinine mass ratio 13 NRG Serum or plasma creatinine measurement w ith calculation of estimated glomerular filtration rate 49 NRG Serum or plasma glucose measurement (mass/volume) 104 mg/dL 70-105 Serum or plasma calcium measurement (mass/volume) 9.1 mg/dL 8.5-10.1 Serum or plasma total bilirubin measurement (mass/volu me) 0.7 mg/dL 0.1-1.0 Serum or plasma alkaline phosphatase miko surement (enzymatic activity/volume) 81 U/L 40-136 Serum or plasma aspartate aminotransfera se measurement (enzymatic activity/volume) 18 U/L 5-34 Serum or plasma alanine aminotransferase measurement (enzymatic activity/volume) 15 U/L 0-55 Serum or plasma protein measurement (mass/volume) 6.8 g/dL 6.4-8.2 Serum or plasma albumin measurement (mass/volume) 3.9 g/dL 3.2-4.5 Methicillin resistant Staphylococcus aur eus (MRSA) screening culture - 04/28/17 07:42 Methicillin resistant Staphylococcus aureus (MRSA) scr eening culture NEG NRG Serum or plasma lithium measurement (mol es/volume) - 08/25/17 22:50 BNP level 310.0 pg/mL <100.0 Comprehensive metabolic panel - 08/25/17 22:50 Serum or plasma sodium measurement (moles/volume) 143 mmol/L 135-145 Serum or plasma potassium measurement (moles/volume) 3.4 mmol/L 3.6-5.0 Serum or plasma chloride measurement (moles/volume) 107 mmol/L 98-107 Carbon dioxide 22 mmol/L 21-32 Serum or plasma anion gap determination (moles/volume) 14 mmol/L 5-14 Serum or plasma urea nitrogen measurement (mass/volume ) 12 mg/dL 7-18 Serum or plasma creatinine measurement (mass/volume) 0.89 mg/dL 0.60-1.30 Serum or plasma urea nitrogen/creatinine mass ratio 13 NRG Serum or plasma creatinine measurement w ith calculation of estimated glomerular filtration rate > NRG Serum or plasma glucose measurement (mass/volume) 104 mg/dL 70-105 Serum or plasma calcium measurement (mass/volume) 9.2 mg/dL 8.5-10.1 Serum or plasma total bilirubin measurement (mass/volu me) 0.8 mg/dL 0.1-1.0 Serum or plasma alkaline phosphatase miko surement (enzymatic activity/volume) 64 U/L 40-136 Serum or plasma aspartate aminotransfera se measurement (enzymatic activity/volume) 22 U/L 5-34 Serum or plasma alanine aminotransferase measurement (enzymatic activity/volume) 16 U/L 0-55 Serum or plasma protein measurement (mass/volume) 6.3 g/dL 6.4-8.2 Serum or plasma albumin measurement (mass/volume) 3.5 g/dL 3.2-4.5 PT panel in platelet poor plasma by coag ulation assay - 08/25/17 22:50 Prothrombin time (PT) in platelet poor plasma by coagu lation assay 14.5 s 12.2-14.7 INR in platelet poor plasma or blood by coagulation as say 1.1 0.8-1.4 Activated partial thromboplastin time (a PTT) in platelet poor plasma bycoagulation assay - 08/25/17 22:50 Activated partial thromboplastin time (a PTT) in platelet poor plasma bycoagulation assay 30 s 24-35 Complete blood count (CBC) with automate d white blood cell (WBC) differential - 08/25/17 22:50 Blood leukocytes automated count (number/volume) 5.7 10*3/uL 4.3-11.0 Blood erythrocytes automated count (number/volume) 4.35 10*6/uL 4.35-5.85 Venous blood hemoglobin measurement (mass/volume) 12.8 g/dL 11.5-16.0 Blood hematocrit (volume fraction) 39 % 35-52 Automated erythrocyte mean corpuscular volume 89 [ foz_us] 80-99 Automated erythrocyte mean corpuscular h emoglobin (mass per erythrocyte) 29 pg 25-34 Automated erythrocyte mean corpuscular h emoglobin concentration measurement (mass/volume) 33 g/dL 32-36 Automated erythrocyte distribution width ratio 14. 5 % 10.0- 14.5 Automated blood platelet count (count/volume) 233 10*3/uL [...] 10*3 1.0-4.0 Blood monocytes automated count (number/volume) 0. 5 10*3 0.0-1.0 Automated eosinophil count 0.2 10*3/uL 0 .0-0.3 Automated blood basophil count (count/volume) 0.0 10*3/uL 0.0-0.1 Serum or plasma troponin i.cardiac measu rement (mass/volume) - 08/25/17 22:50 Serum or plasma troponin i.cardiac measurement (mass/v olume) < ng/mL <0.30 THYROID STIMULATING HORMONE - 08/25/17 2 2:50 THYROID STIMULATING HORMONE 1.39 u[iU]/mL 0.35-4.94 Blood lactic acid measurement (moles/vol ume) - 08/26/17 00:10 Blood lactic acid measurement (moles/volume) 0.90 mmol/L 0.50-2.00 Influenza virus A and B antigen detectio n - 08/26/17 00:10 CALL POSITIVES (F1 HELP) CALLED TO [place] 08/26/17 0102 BY BSD NRG FLU RESULT POSITIVE FOR INFLUENZA B ANT IGEN, NEG FOR A ANTIGEN, BY IA NRG Bacterial blood culture - 08/26/17 00:10 Bacterial blood culture NG NRG Bacterial blood culture - 08/26/17 00:50 Bacterial blood culture NG NRG Complete urinalysis with reflex to cultu re - 08/26/17 03:10 Urine color determination YELLOW NRG Urine clarity determination CLEAR NR G Urine pH measurement by test strip 6.5 5-9 Specific gravity of urine by test strip 1.015 1.016-1.022 Urine protein assay by test strip, semi-quantitative NEGATIVE NEGATIVE Urine glucose detection by automated test strip NE GATIVE NEGATIVE Erythrocytes detection in urine sediment by light micr oscopy NEGATIVE NEGATIVE Urine ketones detection by automated test strip NE GATIVE NEGATIVE Urine nitrite detection by test strip NEGATIVE NEGATIVE Urine total bilirubin detection by test strip NEGA TIVE NEGATIVE Urine urobilinogen measurement by automated test strip (mass/volume) NORMAL NORMAL Urine leukocyte esterase detection by dipstick NEG ATIVE NEGATIVE Automated urine sediment erythrocyte cou nt by microscopy (number/high power field) NONE NRG Automated urine sediment leukocyte count by microscopy (number/high power field) NONE NRG Bacteria detection in urine sediment by light microsco py TRACE NRG Squamous epithelial cells detection in u rine sediment by light microscopy 5-10 NRG Crystals detection in urine sediment by light microsco py NONE NRG Casts detection in urine sediment by light microscopy NONE NRG Mucus detection in urine sediment by light microscopy SMALL NRG Complete urinalysis with reflex to culture NO NRG Serum or plasma troponin i.cardiac measu rement (mass/volume) - 08/26/17 03:30 Serum or plasma troponin i.cardiac measurement (mass/v olume) < ng/mL <0.30 Complete blood count (CBC) with automate d white blood cell (WBC) differential - 10/27/17 15:00 Blood leukocytes automated count (number/volume) 5.9 10*3/uL 4.3-11.0 Blood erythrocytes automated count (number/volume) 4.41 10*6/uL 4.35-5.85 Venous blood hemoglobin measurement (mass/volume) 12.6 g/dL 11.5-16.0 Blood hematocrit (volume fraction) 39 % 35-52 Automated erythrocyte mean corpuscular volume 88 [ foz_us] 80-99 Automated erythrocyte mean corpuscular h emoglobin (mass per erythrocyte) 29 pg 25-34 Automated erythrocyte mean corpuscular h emoglobin concentration measurement (mass/volume) 33 g/dL 32-36 Automated erythrocyte distribution width ratio 14. 5 % 10.0- 14.5 Automated blood platelet count (count/volume) 230 10*3/uL [...] 10*3 1.0-4.0 Blood monocytes automated count (number/volume) 0. 4 10*3 0.0-1.0 Automated eosinophil count 0.1 10*3/uL 0 .0-0.3 Automated blood basophil count (count/volume) 0.0 10*3/uL 0.0-0.1 PT panel in platelet poor plasma by coag ulation assay - 10/27/17 15:00 Prothrombin time (PT) in platelet poor plasma by coagu lation assay 16.0 s 12.2-14.7 INR in platelet poor plasma or blood by coagulation as say 1.3 0.8-1.4 Activated partial thromboplastin time (a PTT) in platelet poor plasma bycoagulation assay - 10/27/17 15:00 Activated partial thromboplastin time (a PTT) in platelet poor plasma bycoagulation assay 30 s 24-35 Comprehensive metabolic panel - 10/27/17 15:00 Serum or plasma sodium measurement (moles/volume) 141 mmol/L 135-145 Serum or plasma potassium measurement (moles/volume) 3.8 mmol/L 3.6-5.0 Serum or plasma chloride measurement (moles/volume) 108 mmol/L 98-107 Carbon dioxide 27 mmol/L 21-32 Serum or plasma anion gap determination (moles/volume) 6 mmol/L 5-14 Serum or plasma urea nitrogen measurement (mass/volume ) 14 mg/dL 7-18 Serum or plasma creatinine measurement (mass/volume) 0.96 mg/dL 0.60-1.30 Serum or plasma urea nitrogen/creatinine mass ratio 15 NRG Serum or plasma creatinine measurement w ith calculation of estimated glomerular filtration rate 57 NRG Serum or plasma glucose measurement (mass/volume) 127 mg/dL 70-105 Serum or plasma calcium measurement (mass/volume) 8.9 mg/dL 8.5-10.1 Serum or plasma total bilirubin measurement (mass/volu me) 0.8 mg/dL 0.1-1.0 Serum or plasma alkaline phosphatase miko surement (enzymatic activity/volume) 66 U/L 40-136 Serum or plasma aspartate aminotransfera se measurement (enzymatic activity/volume) 16 U/L 5-34 Serum or plasma alanine aminotransferase measurement (enzymatic activity/volume) 13 U/L 0-55 Serum or plasma protein measurement (mass/volume) 6.5 g/dL 6.4-8.2 Serum or plasma albumin measurement (mass/volume) 3.9 g/dL 3.2-4.5 Magnesium - 10/27/17 15:00 Magnesium 1.7 mg/dL 1.8-2.4 Serum or plasma troponin i.cardiac measu rement (mass/volume) - 10/27/17 15:00 Serum or plasma troponin i.cardiac measurement (mass/v olume) < ng/mL <0.30 Myoglobin, serum - 10/27/17 15:00 Myoglobin, serum 48.1 ng/mL 10.0-92.0 Automated blood complete blood count (he mogram) panel - 11/08/17 08:20 Blood leukocytes automated count (number/volume) 4.7 10*3/uL 4.3-11.0 Blood erythrocytes automated count (number/volume) 4.31 10*6/uL 4.35-5.85 Venous blood hemoglobin measurement (mass/volume) 12.0 g/dL 11.5-16.0 Blood hematocrit (volume fraction) 38 % 35-52 Automated erythrocyte mean corpuscular volume 89 [ foz_us] 80-99 Automated erythrocyte mean corpuscular h emoglobin (mass per erythrocyte) 28 pg 25-34 Automated erythrocyte mean corpuscular h emoglobin concentration measurement (mass/volume) 31 g/dL 32-36 Automated erythrocyte distribution width ratio 15. 0 % 10.0- 14.5 Automated blood platelet count (count/volume) 215 10*3/uL [...] 5-14 Serum or plasma urea nitrogen measurement (mass/volume ) 12 mg/dL 7-18 Serum or plasma creatinine measurement (mass/volume) 1.10 mg/dL 0.60-1.30 Serum or plasma urea nitrogen/creatinine mass ratio 11 NRG Serum or plasma creatinine measurement w ith calculation of estimated glomerular filtration rate 49 NRG Serum or plasma glucose measurement (mass/volume) 105 mg/dL 70-105 Serum or plasma calcium measurement (mass/volume) 8.8 mg/dL 8.5-10.1 Serum or plasma total bilirubin measurement (mass/volu me) 0.4 mg/dL 0.1-1.0 Serum or plasma alkaline phosphatase miko surement (enzymatic activity/volume) 68 U/L 40-136 Serum or plasma aspartate aminotransfera se measurement (enzymatic activity/volume) 17 U/L 5-34 Serum or plasma alanine aminotransferase measurement (enzymatic activity/volume) 12 U/L 0-55 Serum or plasma protein measurement (mass/volume) 6.2 g/dL 6.4-8.2 Serum or plasma albumin measurement (mass/volume) 3.7 g/dL 3.2-4.5 Magnesium - 11/08/17 08:20 Magnesium 1.9 mg/dL 1.8-2.4 THYROID STIMULATING HORMONE - 11/08/17 0 8:20 THYROID STIMULATING HORMONE 2.53 u[iU]/mL 0.35-4.94 PT panel in platelet poor plasma by coag ulation assay - 11/08/17 08:20 Prothrombin time (PT) in platelet poor plasma by coagu lation assay 16.6 s 12.2-14.7 INR in platelet poor plasma or blood by coagulation as say 1.3 0.8-1.4 Activated partial thromboplastin time (a PTT) in platelet poor plasma bycoagulation assay - 11/08/17 08:20 Activated partial thromboplastin time (a PTT) in platelet poor plasma bycoagulation assay 30 s 24-35 Methicillin resistant Staphylococcus aur eus (MRSA) screening culture - 03/23/18 06:57 Methicillin resistant Staphylococcus aureus (MRSA) scr eening culture NEG NRG Bacterial urine culture - 03/23/18 06:57 Bacterial urine culture SEE COMMEN NRG COLONY COUNT . NRG Complete blood count (CBC) with automate d white blood cell (WBC) differential - 04/01/18 21:55 Blood leukocytes automated count (number/volume) 6.5 10*3/uL 4.3-11.0 Blood erythrocytes automated count (number/volume) 4.67 10*6/uL 4.35-5.85 Venous blood hemoglobin measurement (mass/volume) 13.5 g/dL 11.5-16.0 Blood hematocrit (volume fraction) 41 % 35-52 Automated erythrocyte mean corpuscular volume 87 [ foz_us] 80-99 Automated erythrocyte mean corpuscular h emoglobin (mass per erythrocyte) 29 pg 25-34 Automated erythrocyte mean corpuscular h emoglobin concentration measurement (mass/volume) 33 g/dL 32-36 Automated erythrocyte distribution width ratio 14. 9 % 10.0- 14.5 Automated blood platelet count (count/volume) 248 10*3/uL [...] 10*3 1.0-4.0 Blood monocytes automated count (number/volume) 0. 9 10*3 0.0-1.0 Automated eosinophil count 0.1 10*3/uL 0 .0-0.3 Automated blood basophil count (count/volume) 0.0 10*3/uL 0.0-0.1 PT panel in platelet poor plasma by coag ulation assay - 04/01/18 21:55 Prothrombin time (PT) in platelet poor plasma by coagu lation assay 15.2 s 12.2-14.7 INR in platelet poor plasma or blood by coagulation as say 1.2 0.8-1.4 Activated partial thromboplastin time (a PTT) in platelet poor plasma bycoagulation assay - 04/01/18 21:55 Activated partial thromboplastin time (a PTT) in platelet poor plasma bycoagulation assay 28 s 24-35 Comprehensive metabolic panel - 04/01/18 21:55 Serum or plasma sodium measurement (moles/volume) 140 mmol/L 135-145 Serum or plasma potassium measurement (moles/volume) 3.3 mmol/L 3.6-5.0 Serum or plasma chloride measurement (moles/volume) 106 mmol/L 98-107 Carbon dioxide 21 mmol/L 21-32 Serum or plasma anion gap determination (moles/volume) 13 mmol/L 5-14 Serum or plasma urea nitrogen measurement (mass/volume ) 10 mg/dL 7-18 Serum or plasma creatinine measurement (mass/volume) 0.96 mg/dL 0.60-1.30 Serum or plasma urea nitrogen/creatinine mass ratio 10 NRG Serum or plasma creatinine measurement w ith calculation of estimated glomerular filtration rate 57 NRG Serum or plasma glucose measurement (mass/volume) 106 mg/dL 70-105 Serum or plasma calcium measurement (mass/volume) 9.5 mg/dL 8.5-10.1 Serum or plasma total bilirubin measurement (mass/volu me) 0.7 mg/dL 0.1-1.0 Serum or plasma alkaline phosphatase miko surement (enzymatic activity/volume) 80 U/L 40-136 Serum or plasma aspartate aminotransfera se measurement (enzymatic activity/volume) 22 U/L 5-34 Serum or plasma alanine aminotransferase measurement (enzymatic activity/volume) 17 U/L 0-55 Serum or plasma protein measurement (mass/volume) 6.7 g/dL 6.4-8.2 Serum or plasma albumin measurement (mass/volume) 3.9 g/dL 3.2-4.5 CALCIUM CORRECTED 9.6 mg/dL 8.5-10.1 Magnesium - 04/01/18 21:55 Magnesium 1.8 mg/dL 1.8-2.4 Fibrin D-dimer FEU measurement in platel et poor plasma (mass/volume) - 04/01/18 21:55 Fibrin D-dimer FEU measurement in platelet poor plasma (mass/volume) 0.29 ug/mL 0.00-0.49 Serum or plasma lithium measurement (mol es/volume) - 04/01/18 21:55 BNP level 106.6 pg/mL <100.0 Serum or plasma troponin i.cardiac measu rement (mass/volume) - 04/01/18 21:55 Serum or plasma troponin i.cardiac measurement (mass/v olume) < ng/mL <0.30 Myoglobin, serum - 04/01/18 21:55 Myoglobin, serum 79.0 ng/mL 10.0-92.0 Complete urinalysis with reflex to cultu re - 04/01/18 23:05 Urine color determination YELLOW NRG Urine clarity determination SLIGHTLY CLOUDY NRG Urine pH measurement by test strip 8 5-9 Specific gravity of urine by test strip 1.015 1.016-1.022 Urine protein assay by test strip, semi-quantitative NEGATIVE NEGATIVE Urine glucose detection by automated test strip NE GATIVE NEGATIVE Erythrocytes detection in urine sediment by light micr oscopy NEGATIVE NEGATIVE Urine ketones detection by automated test strip 2+ NEGATIVE Urine nitrite detection by test strip NEGATIVE NEGATIVE Urine total bilirubin detection by test strip NEGA TIVE NEGATIVE Urine urobilinogen measurement by automated test strip (mass/volume) NORMAL NORMAL Urine leukocyte esterase detection by dipstick 1+ NEGATIVE Automated urine sediment erythrocyte cou nt by microscopy (number/high power field) NONE NRG Automated urine sediment leukocyte count by microscopy (number/high power field) [HPF] NRG Bacteria detection in urine sediment by light microsco py FEW NRG Squamous epithelial cells detection in u rine sediment by light microscopy 5-10 NRG Crystals detection in urine sediment by light microsco py NONE NRG Casts detection in urine sediment by light microscopy NONE NRG Mucus detection in urine sediment by light microscopy SMALL NRG Complete urinalysis with reflex to culture NO NRG Complete blood count (CBC) with automate d white blood cell (WBC) differential - 04/02/18 03:06 Blood leukocytes automated count (number/volume) 6.9 10*3/uL 4.3-11.0 Blood erythrocytes automated count (number/volume) 4.06 10*6/uL 4.35-5.85 Venous blood hemoglobin measurement (mass/volume) 11.8 g/dL 11.5-16.0 Blood hematocrit (volume fraction) 36 % 35-52 Automated erythrocyte mean corpuscular volume 89 [ foz_us] 80-99 Automated erythrocyte mean corpuscular h emoglobin (mass per erythrocyte) 29 pg 25-34 Automated erythrocyte mean corpuscular h emoglobin concentration measurement (mass/volume) 33 g/dL 32-36 Automated erythrocyte distribution width ratio 14. 9 % 10.0- 14.5 Automated blood platelet count (count/volume) 217 10*3/uL [...] 10*3 1.0-4.0 Blood monocytes automated count (number/volume) 0. 7 10*3 0.0-1.0 Automated eosinophil count 0.1 10*3/uL 0 .0-0.3 Automated blood basophil count (count/volume) 0.0 10*3/uL 0.0-0.1 Comprehensive metabolic panel - 04/02/18 03:06 Serum or plasma sodium measurement (moles/volume) 141 mmol/L 135-145 Serum or plasma potassium measurement (moles/volume) 3.6 mmol/L 3.6-5.0 Serum or plasma chloride measurement (moles/volume) 109 mmol/L 98-107 Carbon dioxide 23 mmol/L 21-32 Serum or plasma anion gap determination (moles/volume) 9 mmol/L 5-14 Serum or plasma urea nitrogen measurement (mass/volume ) 9 mg/dL 7-18 Serum or plasma creatinine measurement (mass/volume) 0.82 mg/dL 0.60-1.30 Serum or plasma urea nitrogen/creatinine mass ratio 11 NRG Serum or plasma creatinine measurement w ith calculation of estimated glomerular filtration rate > NRG Serum or plasma glucose measurement (mass/volume) 113 mg/dL 70-105 Serum or plasma calcium measurement (mass/volume) 8.6 mg/dL 8.5-10.1 Serum or plasma total bilirubin measurement (mass/volu me) 0.4 mg/dL 0.1-1.0 Serum or plasma alkaline phosphatase miko surement (enzymatic activity/volume) 68 U/L 40-136 Serum or plasma aspartate aminotransfera se measurement (enzymatic activity/volume) 22 U/L 5-34 Serum or plasma alanine aminotransferase measurement (enzymatic activity/volume) 12 U/L 0-55 Serum or plasma protein measurement (mass/volume) 6.0 g/dL 6.4-8.2 Serum or plasma albumin measurement (mass/volume) 3.4 g/dL 3.2-4.5 CALCIUM CORRECTED 9.1 mg/dL 8.5-10.1 Lipid 1996 panel - 04/02/18 03:06 Serum or plasma triglyceride measurement (mass/volume) 102 mg/dL <150 Serum or plasma cholesterol measurement (mass/volume) 212 mg/dL < 200 Serum or plasma cholesterol in HDL measurement (mass/v olume) 43 mg/dL 40-60 Cholesterol in LDL [mass/volume] in serum or plasma by direct assay 152 mg/dL 1-129 Serum or plasma cholesterol in VLDL measurement (mass/ volume) 20 mg/dL 5-40 Automated blood complete blood count (he mogram) panel - 04/03/18 02:45 Blood leukocytes automated count (number/volume) 5.6 10*3/uL 4.3-11.0 Blood erythrocytes automated count (number/volume) 4.13 10*6/uL 4.35-5.85 Venous blood hemoglobin measurement (mass/volume) 11.9 g/dL 11.5-16.0 Blood hematocrit (volume fraction) 37 % 35-52 Automated erythrocyte mean corpuscular volume 90 [ foz_us] 80-99 Automated erythrocyte mean corpuscular h emoglobin (mass per erythrocyte) 29 pg 25-34 Automated erythrocyte mean corpuscular h emoglobin concentration measurement (mass/volume) 32 g/dL 32-36 Automated erythrocyte distribution width ratio 15. 0 % 10.0- 14.5 Automated blood platelet count (count/volume) 221 10*3/uL [...] 5-14 Serum or plasma urea nitrogen measurement (mass/volume ) 9 mg/dL 7-18 Serum or plasma creatinine measurement (mass/volume) 0.80 mg/dL 0.60-1.30 Serum or plasma urea nitrogen/creatinine mass ratio 11 NRG Serum or plasma creatinine measurement w ith calculation of estimated glomerular filtration rate > NRG Serum or plasma glucose measurement (mass/volume) 104 mg/dL 70-105 Serum or plasma calcium measurement (mass/volume) 8.4 mg/dL 8.5-10.1 Serum or plasma total bilirubin measurement (mass/volu me) 0.4 mg/dL 0.1-1.0 Serum or plasma alkaline phosphatase miko surement (enzymatic activity/volume) 61 U/L 40-136 Serum or plasma aspartate aminotransfera se measurement (enzymatic activity/volume) 16 U/L 5-34 Serum or plasma alanine aminotransferase measurement (enzymatic activity/volume) 15 U/L 0-55 Serum or plasma protein measurement (mass/volume) 5.3 g/dL 6.4-8.2 Serum or plasma albumin measurement (mass/volume) 3.2 g/dL 3.2-4.5 CALCIUM CORRECTED 9.0 mg/dL 8.5-10.1 Complete blood count (CBC) with automate d white blood cell (WBC) differential - 10/11/18 09:44 Blood leukocytes automated count (number/volume) 13.7 10*3/uL 4.3-11.0 Blood erythrocytes automated count (number/volume) 4.61 10*6/uL 4.35-5.85 Venous blood hemoglobin measurement (mass/volume) 11.9 g/dL 11.5-16.0 Blood hematocrit (volume fraction) 39 % 35-52 Automated erythrocyte mean corpuscular volume 84 [ foz_us] 80-99 Automated erythrocyte mean corpuscular h emoglobin (mass per erythrocyte) 26 pg 25-34 Automated erythrocyte mean corpuscular h emoglobin concentration measurement (mass/volume) 31 g/dL 32-36 Automated erythrocyte distribution width ratio 16. 9 % 10.0- 14.5 Automated blood platelet count (count/volume) 291 10*3/uL 130-400 Automated blood platelet mean volume measurement 10.4 [foz_us] 7.4-10.4 Automated blood neutrophils/100 leukocytes 87 % 42-75 Automated blood lymphocytes/100 leukocytes 5 % 12-44 Blood monocytes/100 leukocytes 8 % 0-12 Automated blood eosinophils/100 leukocytes 1 % 0-10 Automated blood basophils/100 leukocytes 0 % 0-10 Blood neutrophils automated count (number/volume) 11.9 10*3 1.8-7.8 Blood lymphocytes automated count (number/volume) 0.6 10*3 1.0-4.0 Blood monocytes automated count (number/volume) 1. 1 10*3 0.0-1.0 Automated eosinophil count 0.1 10*3/uL 0 .0-0.3 Automated blood basophil count (count/volume) 0.0 10*3/uL 0.0-0.1 PT panel in platelet poor plasma by coag ulation assay - 10/11/18 09:44 Prothrombin time (PT) in platelet poor plasma by coagu lation assay 25.3 s 12.2-14.7 INR in platelet poor plasma or blood by coagulation as say 2.3 0.8-1.4 Activated partial thromboplastin time (a PTT) in platelet poor plasma bycoagulation assay - 10/11/18 09:44 Activated partial thromboplastin time (a PTT) in platelet poor plasma bycoagulation assay 28 s 24-35 Comprehensive metabolic panel - 10/11/18 09:44 Serum or plasma sodium measurement (moles/volume) 137 mmol/L 135-145 Serum or plasma potassium measurement (moles/volume) 3.9 mmol/L 3.6-5.0 Serum or plasma chloride measurement (moles/volume) 106 mmol/L 98-107 Carbon dioxide 26 mmol/L 21-32 Serum or plasma anion gap determination (moles/volume) 5 mmol/L 5-14 Serum or plasma urea nitrogen measurement (mass/volume ) 16 mg/dL 7-18 Serum or plasma creatinine measurement (mass/volume) 1.11 mg/dL 0.60-1.30 Serum or plasma urea nitrogen/creatinine mass ratio 14 NRG Serum or plasma creatinine measurement w ith calculation of estimated glomerular filtration rate 48 NRG Serum or plasma glucose measurement (mass/volume) 143 mg/dL 70-105 Serum or plasma calcium measurement (mass/volume) 8.7 mg/dL 8.5-10.1 Serum or plasma total bilirubin measurement (mass/volu me) 0.6 mg/dL 0.1-1.0 Serum or plasma alkaline phosphatase miko surement (enzymatic activity/volume) 68 U/L 40-136 Serum or plasma aspartate aminotransfera se measurement (enzymatic activity/volume) 18 U/L 5-34 Serum or plasma alanine aminotransferase measurement (enzymatic activity/volume) 15 U/L 0-55 Serum or plasma protein measurement (mass/volume) 6.6 g/dL 6.4-8.2 Serum or plasma albumin measurement (mass/volume) 4.0 g/dL 3.2-4.5 CALCIUM CORRECTED 8.7 mg/dL 8.5-10.1 Magnesium - 10/11/18 09:44 Magnesium 1.8 mg/dL 1.8-2.4 Serum or plasma troponin i.cardiac measu rement (mass/volume) - 10/11/18 09:44 Serum or plasma troponin i.cardiac measurement (mass/v olume) < ng/mL <0.028 Myoglobin, serum - 10/11/18 09:44 Myoglobin, serum 65.3 ng/mL 10.0-92.0 Blood manual differential performed dete ction - 10/11/18 09:44 Blood monocytes/100 leukocytes 6 % NRG Manual blood segmented neutrophils/100 leukocytes 80 % NRG Blood band neutrophils/100 leukocytes 5 % NRG Manual blood lymphocytes/100 leukocytes 5 % NRG Manual eosinophils/100 leukocytes in nose 4 % NRG Manual blood basophils/100 leukocytes 0 % NRG Blood anisocytosis detection by light microscopy S LIGHT NRG Blood ovalocytes detection by light microscopy SLI GHT NRG Blood poikilocytosis detection by light microscopy SLIGHT NRG Serum or plasma troponin i.cardiac measu rement (mass/volume) - 10/11/18 11:45 Serum or plasma troponin i.cardiac measurement (mass/v olume) < ng/mL <0.028 Complete blood count (CBC) with automate d white blood cell (WBC) differential - 10/25/18 10:53 Blood leukocytes automated count (number/volume) 4.6 10*3/uL 4.3-11.0 Blood erythrocytes automated count (number/volume) 4.69 10*6/uL 4.35-5.85 Venous blood hemoglobin measurement (mass/volume) 12.2 g/dL 11.5-16.0 Blood hematocrit (volume fraction) 39 % 35-52 Automated erythrocyte mean corpuscular volume 83 [ foz_us] 80-99 Automated erythrocyte mean corpuscular h emoglobin (mass per erythrocyte) 26 pg 25-34 Automated erythrocyte mean corpuscular h emoglobin concentration measurement (mass/volume) 31 g/dL 32-36 Automated erythrocyte distribution width ratio 16. 9 % 10.0- 14.5 Automated blood platelet count (count/volume) 268 10*3/uL 130-400 Automated blood platelet mean volume measurement 9.8 [foz_us] 7.4-10.4 Automated blood neutrophils/100 leukocytes 73 % 42-75 Automated blood lymphocytes/100 leukocytes 19 % 12-44 Blood monocytes/100 leukocytes 6 % 0-12 Automated blood eosinophils/100 leukocytes 1 % 0-10 Automated blood basophils/100 leukocytes 0 % 0-10 Blood neutrophils automated count (number/volume) 3.4 10*3 1.8-7.8 Blood lymphocytes automated count (number/volume) 0.9 10*3 1.0-4.0 Blood monocytes automated count (number/volume) 0. 3 10*3 0.0-1.0 Automated eosinophil count 0.1 10*3/uL 0 .0-0.3 Automated blood basophil count (count/volume) 0.0 10*3/uL 0.0-0.1 Comprehensive metabolic panel - 10/25/18 10:53 Serum or plasma sodium measurement (moles/volume) 140 mmol/L 135-145 Serum or plasma potassium measurement (moles/volume) 4.2 mmol/L 3.6-5.0 Serum or plasma chloride measurement (moles/volume) 105 mmol/L 98-107 Carbon dioxide 23 mmol/L 21-32 Serum or plasma anion gap determination (moles/volume) 12 mmol/L 5-14 Serum or plasma urea nitrogen measurement (mass/volume ) 13 mg/dL 7-18 Serum or plasma creatinine measurement (mass/volume) 1.00 mg/dL 0.60-1.30 Serum or plasma urea nitrogen/creatinine mass ratio 13 NRG Serum or plasma creatinine measurement w ith calculation of estimated glomerular filtration rate 54 NRG Serum or plasma glucose measurement (mass/volume) 104 mg/dL 70-105 Serum or plasma calcium measurement (mass/volume) 9.3 mg/dL 8.5-10.1 Serum or plasma total bilirubin measurement (mass/volu me) 0.5 mg/dL 0.1-1.0 Serum or plasma alkaline phosphatase miko surement (enzymatic activity/volume) 64 U/L 40-136 Serum or plasma aspartate aminotransfera se measurement (enzymatic activity/volume) 23 U/L 5-34 Serum or plasma alanine aminotransferase measurement (enzymatic activity/volume) 20 U/L 0-55 Serum or plasma protein measurement (mass/volume) 6.9 g/dL 6.4-8.2 Serum or plasma albumin measurement (mass/volume) 3.9 g/dL 3.2-4.5 CALCIUM CORRECTED 9.4 mg/dL 8.5-10.1 Serum or plasma creatine kinase measurem ent (enzymatic activity/volume) - 10/25/18 10:53 Serum or plasma creatine kinase measurem ent (enzymatic activity/volume) 100 U/L 29-168 Serum or plasma troponin i.cardiac measu rement (mass/volume) - 10/25/18 10:53 Serum or plasma troponin i.cardiac measurement (mass/v olume) < ng/mL <0.028 Complete blood count (CBC) with automate d white blood cell (WBC) differential - 02/19/19 12:10 Blood leukocytes automated count (number/volume) 3.4 10*3/uL 4.3-11.0 Blood erythrocytes automated count (number/volume) 4.21 10*6/uL 4.35-5.85 Venous blood hemoglobin measurement (mass/volume) 11.3 g/dL 11.5-16.0 Blood hematocrit (volume fraction) 36 % 35-52 Automated erythrocyte mean corpuscular volume 86 [ foz_us] 80-99 Automated erythrocyte mean corpuscular h emoglobin (mass per erythrocyte) 27 pg 25-34 Automated erythrocyte mean corpuscular h emoglobin concentration measurement (mass/volume) 31 g/dL 32-36 Automated erythrocyte distribution width ratio 17. 8 % 10.0- 14.5 Automated blood platelet count (count/volume) 227 10*3/uL 130-400 Automated blood platelet mean volume measurement 10.7 [foz_us] 7.4-10.4 Automated blood neutrophils/100 leukocytes 57 % 42-75 Automated blood lymphocytes/100 leukocytes 28 % 12-44 Blood monocytes/100 leukocytes 11 % 0-12 Automated blood eosinophils/100 leukocytes 4 % 0-10 Automated blood basophils/100 leukocytes 1 % 0-10 Blood neutrophils automated count (number/volume) 2.0 10*3 1.8-7.8 Blood lymphocytes automated count (number/volume) 0.9 10*3 1.0-4.0 Blood monocytes automated count (number/volume) 0. 4 10*3 0.0-1.0 Automated eosinophil count 0.1 10*3/uL 0 .0-0.3 Automated blood basophil count (count/volume) 0.0 10*3/uL 0.0-0.1 PT panel in platelet poor plasma by coag ulation assay - 02/19/19 12:10 Prothrombin time (PT) in platelet poor plasma by coagu lation assay 38.1 s 12.2-14.7 INR in platelet poor plasma or blood by coagulation as say 3.7 0.8-1.4 Activated partial thromboplastin time (a PTT) in platelet poor plasma bycoagulation assay - 02/19/19 12:10 Activated partial thromboplastin time (a PTT) in platelet poor plasma bycoagulation assay 48 s 24-35 Comprehensive metabolic panel - 02/19/19 12:10 Serum or plasma sodium measurement (moles/volume) 141 mmol/L 135-145 Serum or plasma potassium measurement (moles/volume) 4.1 mmol/L 3.6-5.0 Serum or plasma chloride measurement (moles/volume) 105 mmol/L 98-107 Carbon dioxide 23 mmol/L 21-32 Serum or plasma anion gap determination (moles/volume) 13 mmol/L 5-14 Serum or plasma urea nitrogen measurement (mass/volume ) 9 mg/dL 7-18 Serum or plasma creatinine measurement (mass/volume) 1.09 mg/dL 0.60-1.30 Serum or plasma urea nitrogen/creatinine mass ratio 8 NRG Serum or plasma creatinine measurement w ith calculation of estimated glomerular filtration rate 49 NRG Serum or plasma glucose measurement (mass/volume) 93 mg/dL 70-105 Serum or plasma calcium measurement (mass/volume) 8.9 mg/dL 8.5-10.1 Serum or plasma total bilirubin measurement (mass/volu me) 0.7 mg/dL 0.1-1.0 Serum or plasma alkaline phosphatase miko surement (enzymatic activity/volume) 66 U/L 40-136 Serum or plasma aspartate aminotransfera se measurement (enzymatic activity/volume) 39 U/L 5-34 Serum or plasma alanine aminotransferase measurement (enzymatic activity/volume) 33 U/L 0-55 Serum or plasma protein measurement (mass/volume) 6.4 g/dL 6.4-8.2 Serum or plasma albumin measurement (mass/volume) 3.7 g/dL 3.2-4.5 CALCIUM CORRECTED 9.1 mg/dL 8.5-10.1 Fibrin D-dimer FEU measurement in platel et poor plasma (mass/volume) - 02/19/19 12:10 Fibrin D-dimer FEU measurement in platelet poor plasma (mass/volume) < ug/mL 0.00-0.49 Serum or plasma troponin i.cardiac measu rement (mass/volume) - 02/19/19 12:10 Serum or plasma troponin i.cardiac measurement (mass/v olume) < ng/mL <0.028 Serum or plasma lithium measurement (mol es/volume) - 02/19/19 12:10 BNP PT 187.0 pg/mL <100.0 Complete urinalysis with reflex to cultu re - 02/19/19 13:24 Urine color determination YELLOW NRG Urine clarity determination CLEAR NR G Urine pH measurement by test strip 6 5-9 Specific gravity of urine by test strip 1.010 1.016-1.022 Urine protein assay by test strip, semi-quantitative NEGATIVE NEGATIVE Urine glucose detection by automated test strip NE GATIVE NEGATIVE Erythrocytes detection in urine sediment by light micr oscopy NEGATIVE NEGATIVE Urine ketones detection by automated test strip NE GATIVE NEGATIVE Urine nitrite detection by test strip POSITIVE NEGATIVE Urine total bilirubin detection by test strip NEGA TIVE NEGATIVE Urine urobilinogen measurement by automated test strip (mass/volume) NORMAL NORMAL Urine leukocyte esterase detection by dipstick 1+ NEGATIVE Automated urine sediment erythrocyte cou nt by microscopy (number/high power field) NONE NRG Automated urine sediment leukocyte count by microscopy (number/high power field) [HPF] NRG Bacteria detection in urine sediment by light microsco py TRACE NRG Squamous epithelial cells detection in u rine sediment by light microscopy 5-10 NRG Crystals detection in urine sediment by light microsco py NONE NRG Casts detection in urine sediment by light microscopy NONE NRG Mucus detection in urine sediment by light microscopy NEGATIVE NRG Complete urinalysis with reflex to culture YES NRG Bacterial urine culture - 02/19/19 13:24 Bacterial urine culture [id number] NRG COLONY COUNT >100,000/ML NRG FTX;REPORTABLE SUSCEPTIBILITY REPORTED 02-21-19 12 05. NRG Dirithromycin susceptibility test by dis k diffusion - 02/19/19 13:24 Gentamicin susceptibility test by minimum inhibitory c oncentration <= NRG Levofloxacin susceptibility test by minimum inhibitory concentration <= NRG Tobramycin susceptibility test by minimum inhibitory c oncentration <= NRG Piperacillin/tazobactam susceptibility t est by minimum inhibitory concentration = NRG Ciprofloxacin susceptibility test by minimum inhibitor y concentration <= NRG Meropenem susceptibility test by minimum inhibitory co ncentration <= NRG Aztreonam susceptibility test by minimum inhibitory co ncentration 8 NRG Cefepime susceptibility test by minimum inhibitory con centration 4 NRG Imipenem susceptibility test by minimum inhibitory con centration 2 NRG Ceftazidime susceptibility test by minimum inhibitory concentration <= NRG Arterial blood gas measurement - 9 09:53 Blood pCO2 44 mm[Hg] 35-45 Blood pO2 71 mm[Hg] 79-93 Arterial blood bicarbonate measurement (moles/volume) 26 mmol/L 23-27 Arterial blood base excess by calculation 1.9 mmol /L -2.5-2.5 Arterial blood oxygen saturation measurement 93 % 94-100 * Inhaled oxygen flow rate ROOM AIR NRG Arterial blood pH measurement with patient temperature correction 7.39 7.37-7.43 Arterial blood carbon dioxide, total measurement (mole s/volume) 27.5 mmol/L 21.0-31.0 Body site RR NRG Assessment of wrist artery patency prior to arterial p uncture YES-POS NRG Setting of ventilation mode NO NR G Measurement of body temperature 37.8 NRG Magnesium - 08/14/19 14:55 Magnesium 1.9 mg/dL 1.6-2.4 Whole blood basic metabolic panel - 07/27 14:55 Serum or plasma sodium measurement (moles/volume) 141 mmol/L 135-145 Serum or plasma potassium measurement (moles/volume) 4.0 mmol/L 3.6-5.0 Serum or plasma chloride measurement (moles/volume) 109 mmol/L 98-107 Carbon dioxide 25 mmol/L 21-32 Serum or plasma anion gap determination (moles/volume) 7 mmol/L 5-14 Serum or plasma urea nitrogen measurement (mass/volume ) 15 mg/dL 7-18 Serum or plasma creatinine measurement (mass/volume) 0.97 mg/dL 0.60-1.30 Serum or plasma urea nitrogen/creatinine mass ratio 15 NRG Serum or plasma creatinine measurement w ith calculation of estimated glomerular filtration rate 56 NRG Serum or plasma glucose measurement (mass/volume) 109 mg/dL 70-105 Serum or plasma calcium measurement (mass/volume) 8.1 mg/dL 8.5-10.1 Complete urinalysis with reflex to cultu re - 09/02/19 18:00 Urine color determination YELLOW NRG Urine clarity determination CLOUDY NR G Urine pH measurement by test strip 5.5 5-9 Specific gravity of urine by test strip >= 1.016-1.022 Urine protein assay by test strip, semi-quantitative TRACE NEGATIVE Urine glucose detection by automated test strip NE GATIVE NEGATIVE Erythrocytes detection in urine sediment by light micr oscopy TRACE-I NEGATIVE Urine ketones detection by automated test strip NE GATIVE NEGATIVE Urine nitrite detection by test strip NEGATIVE NEGATIVE Urine total bilirubin detection by test strip 1+ NEGATIVE Urine urobilinogen measurement by automated test strip (mass/volume) 1.0 mg/dL < = 1.0 Urine leukocyte esterase detection by dipstick 2+ NEGATIVE Automated urine sediment erythrocyte cou nt by microscopy (number/high power field) [HPF] NRG Automated urine sediment leukocyte count by microscopy (number/high power field) [HPF] NRG Bacteria detection in urine sediment by light microsco py TRACE NRG Squamous epithelial cells detection in u rine sediment by light microscopy NONE NRG Crystals detection in urine sediment by light microsco py NONE NRG Casts detection in urine sediment by light microscopy NONE NRG Mucus detection in urine sediment by light microscopy SMALL NRG Complete urinalysis with reflex to culture YES NRG Bacterial urine culture - 09/02/19 18:00 Bacterial urine culture [id number] NRG COLONY COUNT <10,000 NRG FREE TEXT ENTRY 2 PRELIM RAPID ID TEST AT [facility] 09/03 9:15 NRG Complete blood count (CBC) with automate d white blood cell (WBC) differential - 09/02/19 18:20 Blood leukocytes automated count (number/volume) 4.4 10*3/uL 4.3-11.0 Blood erythrocytes automated count (number/volume) 4.59 10*6/uL 4.35-5.85 Venous blood hemoglobin measurement (mass/volume) 11.9 g/dL 11.5-16.0 Blood hematocrit (volume fraction) 38 % 35-52 Automated erythrocyte mean corpuscular volume 83 [ foz_us] 80-99 Automated erythrocyte mean corpuscular h emoglobin (mass per erythrocyte) 26 pg 25-34 Automated erythrocyte mean corpuscular h emoglobin concentration measurement (mass/volume) 31 g/dL 32-36 Automated erythrocyte distribution width ratio 17. 4 % 10.0- 14.5 Automated blood platelet count (count/volume) 289 10*3/uL 130-400 Automated blood platelet mean volume measurement 10.2 [foz_us] 7.4-10.4 Automated blood neutrophils/100 leukocytes 65 % 42-75 Automated blood lymphocytes/100 leukocytes 22 % 12-44 Blood monocytes/100 leukocytes 10 % 0-12 Automated blood eosinophils/100 leukocytes 3 % 0-10 Automated blood basophils/100 leukocytes 1 % 0-10 Blood neutrophils automated count (number/volume) 2.8 10*3 1.8-7.8 Blood lymphocytes automated count (number/volume) 1.0 10*3 1.0-4.0 Blood monocytes automated count (number/volume) 0. 4 10*3 0.0-1.0 Automated eosinophil count 0.1 10*3/uL 0 .0-0.3 Automated blood basophil count (count/volume) 0.0 10*3/uL 0.0-0.1 Comprehensive metabolic panel - 09/02/19 18:20 Serum or plasma sodium measurement (moles/volume) 142 mmol/L 135-145 Serum or plasma potassium measurement (moles/volume) 3.8 mmol/L 3.6-5.0 Serum or plasma chloride measurement (moles/volume) 107 mmol/L 98-107 Carbon dioxide 24 mmol/L 21-32 Serum or plasma anion gap determination (moles/volume) 11 mmol/L 5-14 Serum or plasma urea nitrogen measurement (mass/volume ) 13 mg/dL 7-18 Serum or plasma creatinine measurement (mass/volume) 0.94 mg/dL 0.60-1.30 Serum or plasma urea nitrogen/creatinine mass ratio 14 NRG Serum or plasma creatinine measurement w ith calculation of estimated glomerular filtration rate 58 NRG Serum or plasma glucose measurement (mass/volume) 87 mg/dL 70-105 Serum or plasma calcium measurement (mass/volume) 9.2 mg/dL 8.5-10.1 Serum or plasma total bilirubin measurement (mass/volu me) 0.5 mg/dL 0.1-1.0 Serum or plasma alkaline phosphatase miko surement (enzymatic activity/volume) 84 U/L 40-136 Serum or plasma aspartate aminotransfera se measurement (enzymatic activity/volume) 23 U/L 5-34 Serum or plasma alanine aminotransferase measurement (enzymatic activity/volume) 18 U/L 0-55 Serum or plasma protein measurement (mass/volume) 7.3 g/dL 6.4-8.2 Serum or plasma albumin measurement (mass/volume) 4.1 g/dL 3.2-4.5 CALCIUM CORRECTED 9.1 mg/dL 8.5-10.1 Coronavirus SARS-CoV-2 SO 2018 - 0 12:56 Coronavirus Ab [Units/volume] in Serum Negative Negative Methicillin resistant Staphylococcus aur eus (MRSA) screening culture - 12/05/19 06:50 Methicillin resistant Staphylococcus aureus (MRSA) scr eening culture NEG NRG Complete blood count (CBC) with automate d white blood cell (WBC) differential - 01/23/20 12:02 Blood leukocytes automated count (number/volume) 4.4 10*3/uL 4.3-11.0 Blood erythrocytes automated count (number/volume) 4.06 10*6/uL 4.35-5.85 Venous blood hemoglobin measurement (mass/volume) 10.3 g/dL 11.5-16.0 Blood hematocrit (volume fraction) 33 % 35-52 Automated erythrocyte mean corpuscular volume 82 [ foz_us] 80-99 Automated erythrocyte mean corpuscular h emoglobin (mass per erythrocyte) 25 pg 25-34 Automated erythrocyte mean corpuscular h emoglobin concentration measurement (mass/volume) 31 g/dL 32-36 Automated erythrocyte distribution width ratio 17. 6 % 10.0- 14.5 Automated blood platelet count (count/volume) 270 10*3/uL 130-400 Automated blood platelet mean volume measurement 10.6 [foz_us] 7.4-10.4 Automated blood neutrophils/100 leukocytes 64 % 42-75 Automated blood lymphocytes/100 leukocytes 23 % 12-44 Blood monocytes/100 leukocytes 10 % 0-12 Automated blood eosinophils/100 leukocytes 3 % 0-10 Automated blood basophils/100 leukocytes 0 % 0-10 Blood neutrophils automated count (number/volume) 2.8 10*3 1.8-7.8 Blood lymphocytes automated count (number/volume) 1.0 10*3 1.0-4.0 Blood monocytes automated count (number/volume) 0. 4 10*3 0.0-1.0 Automated eosinophil count 0.1 10*3/uL 0 .0-0.3 Automated blood basophil count (count/volume) 0.0 10*3/uL 0.0-0.1 Comprehensive metabolic panel - 01/23/20 12:02 Serum or plasma sodium measurement (moles/volume) 142 mmol/L 135-145 Serum or plasma potassium measurement (moles/volume) 4.2 mmol/L 3.6-5.0 Serum or plasma chloride measurement (moles/volume) 108 mmol/L 98-107 Carbon dioxide 26 mmol/L 21-32 Serum or plasma anion gap determination (moles/volume) 8 mmol/L 5-14 Serum or plasma urea nitrogen measurement (mass/volume ) 11 mg/dL 7-18 Serum or plasma creatinine measurement (mass/volume) 0.92 mg/dL 0.60-1.30 Serum or plasma urea nitrogen/creatinine mass ratio 12 NRG Serum or plasma creatinine measurement w ith calculation of estimated glomerular filtration rate 60 NRG Serum or plasma glucose measurement (mass/volume) 97 mg/dL 70-105 Serum or plasma calcium measurement (mass/volume) 8.3 mg/dL 8.5-10.1 Serum or plasma total bilirubin measurement (mass/volu me) 0.4 mg/dL 0.1-1.0 Serum or plasma alkaline phosphatase miko surement (enzymatic activity/volume) 80 U/L 40-136 Serum or plasma aspartate aminotransfera se measurement (enzymatic activity/volume) 14 U/L 5-34 Serum or plasma alanine aminotransferase measurement (enzymatic activity/volume) 9 U/L 0-55 Serum or plasma protein measurement (mass/volume) 6.3 g/dL 6.4-8.2 Serum or plasma albumin measurement (mass/volume) 3.7 g/dL 3.2-4.5 CALCIUM CORRECTED 8.5 mg/dL 8.5-10.1 PT panel in platelet poor plasma by coag ulation assay - 01/23/20 12:02 Prothrombin time (PT) in platelet poor plasma by coagu lation assay 22.9 s 12.2-14.7 INR in platelet poor plasma or blood by coagulation as say 2.0 0.8-1.4 Activated partial thromboplastin time (a PTT) in platelet poor plasma bycoagulation assay - 01/23/20 12:02 Activated partial thromboplastin time (a PTT) in platelet poor plasma bycoagulation assay 32 s 24-35 Magnesium - 01/23/20 12:02 Magnesium 1.9 mg/dL 1.6-2.4 Serum or plasma troponin i.cardiac measu rement (mass/volume) - 01/23/20 12:02 Serum or plasma troponin i.cardiac measurement (mass/v olume) < ng/mL <0.028 Myoglobin, serum - 01/23/20 12:02 Myoglobin, serum 41.9 ng/mL 10.0-92.0 Serum or plasma lithium measurement (mol es/volume) - 01/23/20 12:02 BNP PT 223.9 pg/mL <100.0 Encounters ACCT No. Visit Date/Time Discharge Status Pt. Type Provider Facility Loc./Unit Complaint [id number] 02/03/2017 10:27:23 02/03/2017 23:59:5 9 CLS Outpatient [id number] 08/03/2018 00:00:00 08/03/2018 23:59: 00 DIS Outpatient BIBIANA KAPADIA [id number] 12/05/2019 06:26:00 10:15:00 DIS Outpatient IRIS EWING MD [facility] SDC INCONTENENCE [id number] 12/01/2019 06:33:00 15:46:00 DIS Outpatient IRIS EWING MD [facility] PREOP BOTOX INJECTION [id number] 08/28/2019 09:16:00 00:01:00 DIS Outpatient MOHSEN MORRIS MD [facility] LAB I48.0 [id number] 09/02/2019 17:03:00 20:16:00 DIS Emergency KIMBERLYMALIKA [facility] ER UNABLE TO URINATE [id number] 08/14/2019 10:00:00 16:55:00 DIS Inpatient Alia HAN MD [facility] CSD SOTALOL LOADING [id number] 07/05/2019 19:07:00 07:03:00 DIS Outpatient GABE LEVY DO [facility] SLEEP MAGALY [id number] 06/29/2019 00:09:00 23:59:59 CLS Preadmit Alia HAN MD [facility] CARD AFIB [id number] 03/30/2019 08:40:00 00:01:00 DIS Outpatient Alia HAN MD [facility] CARD AFIB [id number] 2019 10:01:00 23:59:59 CLS Outpatient ALFRED OWENS APRN [facility] RAD COPD [id number] 05/29/2019 07:51:00 23:59:59 CLS Outpatient ALFRED OWENS APRN [facility] RT DYSPNEA [id number] 05/04/2019 07:56:00 23:59:59 CLS Outpatient Alia HAN MD [facility] 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 SURVEILLANCE OF PAF [id number] 01/12/2019 10:27:00 00:01:00 DIS Outpatient MOHSEN MORRIS MD [facility] LAB I48.0 [id number] 03/09/2019 14:12:00 23:59:59 CLS Outpatient ALIS GLORIAP [facility] RAD R KNEE PAIN [id number] 02/19/2019 11:51:00 13:59:00 DIS Emergency KIMBERLYMALIKA Carey [facility] ER SWELLING IN BOTH LEGS [id number] 01/25/2019 07:34:00 23:59:59 CLS Outpatient AGUSTIN HOWELL APRN [facility] RAD SEVERE LOW BACK PAIN,H X OF FX [id number] 01/17/2019 12:16:00 23:59:59 CLS Outpatient MOHSEN MORRIS MD [facility] RAD CHEST X-RAY [id number] 01/12/2019 10:23:00 23:59:59 CLS Outpatient ALIS GLORIA INFECTIOUS DISEASES PHYSICIAN [facility] RAD LOW BACK PAIN [id number] 09/12/2018 10:25:00 00:01:00 DIS Outpatient MOHSEN MORRIS MD [facility] LAB I48.0 [id number] 10/25/2018 10:45:00 23:59:59 CLS Outpatient ALIS GLORIAP [facility] CARD CHEST PAIN [id number] 10/11/2018 09:39:00 03/19/2 019 12:45:00 DIS Emergency HAVASUPAI MD, JOSE Santana [facility] ER CHEST PAIN [id number] 09/20/2018 11:46:00 23:59:59 CLS Outpatient MOHSEN MORRIS MD [facility] LAB ARTIAL FIB [id number] 08/12/2018 09:30:00 23:59:59 CLS Preadmit ALIS GLORIA INFECTIOUS DISEASES PHYSICIAN [facility] RAD COMPRESSION FX L1 L3 L4, BACK PAIN [id number] 08/10/2018 12:38:00 23:59:59 CLS Outpatient MOHSEN MORRIS MD [facility] CARD CAD,CHEST PAIN SYNDROME,HTN,HYPERLIPIDEMIA,MAGALY [id number] 08/01/2018 11:24:00 23:59:59 CLS Outpatient ALIS GLORIAP [facility] RAD LOW BACK PAIN [id number] 04/25/2018 00:44:00 23:59:59 CLS Preadmit MARU TAVERAS [facility] CARD ANTERIOR CHEST WALL PAIN,CAD,HTN [id number] 04/02/2018 10:53:00 018 14:10:00 DIS Inpatient JAIR GONSALES DO, V [facility] ICU A-FIB,LABILE BLODD PRES SURE [id number] 03/14/2018 07:43:00 018 00:01:00 DIS Outpatient NADYA TAVERAS [facility] CARD ANTERIOR CH EST WALL PAIN,CAD,HTN [id number] 03/23/2018 06:32:00 018 13:10:00 DIS Outpatient MOHSEN MORRIS MD [facility] CATH ABN STRESS,CAD,SOB,HTN [id number] 02/15/2018 10:44:00 018 23:59:59 CLS Outpatient MARINA MARTINEZ MD [facility] SLEEP MAGALY [id number] 12/03/2017 21:02:00 018 07:00:00 DIS Outpatient BRODIE RAFFY Margo ANALYTICS DEVELOPER [facility] SLEEP MAGALY G47.33 [id number] 11/08/2017 07:49:00 018 08:55:00 DIS Inpatient MOHSEN MORRIS MD [facility] ICU AFIB [id number] 10/27/2017 14:49:00 018 17:19:00 DIS Emergency PREMA MALIK MD [facility] ER SOB [id number] 09/01/2017 13:29:00 018 23:59:59 CLS Outpatient MOHSEN MORRIS MD [facility] RAD I48.0 ATRIAL FIBRILLATI ON [id number] 08/25/2017 22:21:00 018 04:31:00 DIS Emergency CASIMIRO DO, ROSIE K [facility] ER SOA,IRREG HEART RATE [id number] 04/28/2017 07:11:00 017 11:30:00 DIS Outpatient MOHSEN MORRIS MD [facility] CATH AFIB, HTN, [id number] 04/20/2017 14:04:00 017 15:51:00 DIS Emergency SHEILA NARAYANAN MATERIALS COORDINATOR [facility] ER A-FIB/SOB [id number] 03/10/2017 07:06:00 017 11:20:00 DIS Outpatient MOHSEN MORRIS MD [facility] CATH AFIB,DYSPNEA,CAD,HTN [id number] 02/10/2017 12:31:00 017 23:59:59 CLS Outpatient NADYA TAVERAS [facility] LAB I25.10 I10 E78.2 [id number] 02/08/2017 09:04:00 017 23:59:59 CLS Outpatient NADYA TAVERAS [facility] CARD CAD I25.10 [id number] 02/02/2017 10:53:00 017 23:59:59 CLS Outpatient STEFFI SCHAFER, BIBIANA Roach [facility] CARD IRREGULAR RHYTHM,FATIG UE [id number] 09/28/2016 10:09:00 017 23:59:59 CLS Outpatient NADYA TAVERAS [facility] LAB CAD,HTN,HLP ,MAGALY [id number] 09/07/2016 13:46:00 017 23:59:59 CLS Outpatient AGUSTIN HOWELL APRN [facility] RAD POPLITEAL PAIN,CALF PA IN,KNEE PAIN [id number] 08/25/2016 11:46:00 017 11:30:00 DIS Outpatient MOHSEN MORRIS MD [facility] CATH CHEST PAIN [id number] 08/01/2016 11:52:00 017 14:24:00 DIS Emergency DEMETRIS SCHAFER, RICK Alaniz [facility] ER CP/SOA [id number] 02/24/2016 07:38:00 016 23:59:59 CLS Outpatient NADYA TAVERAS [facility] CARD ANEURYSM OF AA,CAD,CHEST PAIN,HTN [id number] 02/07/2016 11:35:00 016 23:59:59 CLS Outpatient NADYA TAVERAS [facility] CARD ANEURYSM OF AA CAD,CHEST PAIN,HTN [id number] 02/04/2016 08:28:00 016 23:59:59 CLS Outpatient NADYA TAVERAS [facility] RAD ANEURYSM OF AA, CAD, CHEST PAIN, HTN [id number] 10/13/2015 13:57:00 016 15:56:00 DIS Emergency SHEILA NARAYANAN APRN [facility] ER BOTH LEGS AND FEET SWEL LING/SOB [id number] 01/24/2015 09:26:00 015 23:59:59 CLS Outpatient MOHSEN MORRIS MD [facility] RAD CAD,DYSPNEA,HTN,HLP [id number] 11/01/2014 09:51:00 015 23:59:59 CLS Outpatient EDD VALLE MD [facility] RAD COMPRESSION FRA CTURE [id number] 10/16/2014 14:29:00 015 23:59:59 CLS Outpatient PAMELA JOSHI MD [facility] RAD LUMBAGO [id number] 12/11/2013 07:28:00 014 23:59:59 CLS Outpatient VIKTOR REBOLLEDO, NADYA Moore [facility] CARD CAD,HTN,HLP [id number] 10/19/2013 08:29:00 014 23:59:59 CLS Outpatient EDD VALLE MD [facility] RAD F/U AAA [id number] 10/10/2013 19:47:00 014 06:45:00 DIS Outpatient EDD VALLE MD [facility] SLEEP ISCHEMIC HEART DISEASE,HTN [id number] 09/27/2013 11:56:00 014 23:59:59 CLS Outpatient EDD VALLE MD [facility] RT SOB [id number] 09/18/2013 09:59:00 014 23:59:59 CLS Outpatient EDD VALLE MD [facility] RAD SOB [id number] 04/06/2013 06:44:00 013 08:10:00 DIS Emergency JOSE POTTER MD [facility] ER GENERAL PAIN [id number] 04/02/2013 09:07:00 11:10:00 DIS Emergency BISI WILBURN MD [facility] ER LOWER BACK PAIN R LEG P AIN [id number] 03/10/2013 09:44:00 23:59:59 CLS Outpatient EDD VALLE MD [facility] RAD SCREENING [id number] 12/06/2012 08:37:00 013 09:39:00 DIS Outpatient TORI SCHAFER, EDD Rojo [facility] REHAB BACK PAIN [id number] 01/23/2020 12:28:00 Document Registration [id number] 11/27/2019 00:00:00 Document Registration [id number] 03/14/2018 07:46:00 Document Registration [id number] 10/11/2014 07:57:00 Document Registration [id number] 10/08/2014 15:44:00 Document Registration [id number] 09/07/2012 07:43:00 Document Registration [id number] 08/31/2012 11:34:00 Document Registration [id number] 07/22/2012 09:57:00 Document Registration [id number] 07/20/2012 12:14:00 Document Registration [id number] 06/08/2012 10:26:00 Document Registration [id number] 04/08/2012 08:18:00 Document Registration [id number] 03/23/2012 08:00:00 Document Registration [id number] 01/13/2012 10:47:00 Document Registration [id number] 12/13/2011 06:12:00 Document Registration [id number] 12/09/2011 16:25:00 Document Registration [id number] 10/20/2011 08:25:00 Document Registration [id number] 07/29/2011 09:58:00 Document Registration [id number] 07/27/2011 09:14:00 Document Registration [id number] 06/24/2011 07:06:00 Document Registration [id number] 06/09/2011 10:50:00 Document Registration
--- NOTE | 2020-01-23 16:42 | Consultation-Cardiology ---
HPI-Cardiology Cardiology Consultation: Date of Consultation 01/23/20 Date of Admission Attending Physician Admitting Physician Scarlett Spring MD Consulting Physician Alia CHAUHAN MD HPI: Time Seen by a Provider: 13:30 Chief Complaint: Atrial fibrillation This is a 74-year-old lady who has history of persistent atrial fibrillation. She is on warfarin and amlodipine. She also has history of hypertension. He presented to the hospital with complains of shortness of breath. She was found to be in atrial fibrillation with RVR. She was given metoprolol which improved her heart rate. She denies active smoking and does not have pertinent family history of premature CAD. Review of Systems-Cardiology Review of Systems Constitutional: As described under HPI; No As described under HPI, No no symptoms reported, No chills, No fever, No lightheadedness Eyes: No As described under HPI, No no symptoms reported, No blindness, No blurred vision, No contact lenses, No drainage, No decreased acuity, No foreign body sensation, No pain, No vision change Ears/Nose/Throat: No As described under HPI, No no symptoms reported, No chronic hearing loss, No ear discharge, No ear pain, No nasal drainage, No ulcerations Respiratory: No no symptoms reported; As described under HPI; No As described under HPI, No cough, No orthopnea, No shortness of breath, No SOB with excertion Cardiovascular: No no symptoms reported; As described under HPI; No As described under HPI, No chest pain, No edema, No irregular heart rate, No lightheadedness; palpitations Gastrointestinal: No no symptoms reported, No As described under HPI, No abdomen distended, No abdominal pain, No blood streaked bowels, No constipation, No diarrhea, No nausea, No vomiting, No stool coloration changes Genitourinary: No As described under HPI, No burning, No dysuria, No discharge, No frequency, No flank pain, No hematuria, No urgency : Yes : No Skin: No rash, No skin related problems, No ulcerations Psychiatric/Neurological: No anxiety, No depression, No seizure, No focal weakness, No syncope Hematologic: No bleeding abnormalities JBA-Scggym-Pwurdp Hx Patient Social History Alcohol Use: Denies Use Recreational Drug Use: No Smoking Status: Former Smoker Former smoker/When Quit: Sep 07, 1990 Type Used: Cigarettes 2nd Hand Smoke Exposure: No Recent Foreign Travel: No Recent Infectious Disease Expo: No Hospitalization with Isolation: Denies Immunizations Up To Date Tetanus Booster (TDap): Unknown Date of Pneumonia Vaccine: Mar 23, 2017 Date of Influenza Vaccine: Apr 25, 2019 Past Medical History PMH As described under Assessment. Family Medical History Family History: Arthritis Cardiovascular disease 19 FATHER 19 MOTHER G8 BROTHER FH: [place] (myocardial infarction) 19 FATHER ( at 67 from [place]) 19 MOTHER ( at 39 from [place]) Hypertension Allergies and Home Medications Allergies Coded Allergies: Iodinated Contrast Media (Unverified Allergy, Mild, NAUSEA, 11/28/19) Pt states it's the IV dye used in heart tests not CT scans penicillin G (Verified Allergy, Mild, RASH, 11/28/19) RASH Home Medications Albuterol Sulfate 1 Puff Puff, 2 PUFF INH Q4H PRN for SHORTNESS OF BREATH, (Reported) Amlodipine Besylate 5 Mg Tablet, 5 MG PO DAILY, (Reported) Atorvastatin Calcium 40 Mg Tablet, 40 MG PO DAILY, (Reported) Cholecalciferol (Vitamin D3) 50 Mcg Capsule, 50 MCG PO DAILY, (Reported) Fluticasone/Salmeterol 1 Each Blst.w.dev, 1 EACH IH BID, (Reported) Furosemide 20 Mg Tablet, 20 MG PO DAILY, (Reported) LAST FILLED 03-09-2019 #120 Gabapentin 100 Mg Capsule, 100 MG PO Q8H PRN for NERVE PAIN, (Reported) Metoprolol Tartrate 25 Mg Tablet, 25 MG PO BID Prescribed by: SHEILA NARAYANAN on 01/23/20 1336 Omeprazole 20 Mg Capsule.dr, 20 MG PO HS, (Reported) Paroxetine HCl 40 Mg Tablet, 40 MG PO DAILY, (Reported) Phenazopyridine HCl 200 Mg Tablet, 1 TAB PO TID PRN for SPASMS Prescribed by: FIOR ANDERSON on 12/05/19926 Potassium Chloride 10 Meq Tab.er.prt, 10 MEQ PO DAILY, (Reported) Sulfamethoxazole/Trimethoprim 1 Each Tablet, 1 EACH PO BID Prescribed by: FIOR ANDERSON on 12/05/19926 Terazosin HCl 5 Mg Capsule, 5 MG PO DAILY, (Reported) Trazodone HCl 50 Mg Tablet, 50 MG PO DAILY, (Reported) Valsartan 160 Mg Tablet, 160 MG PO DAILY, (Reported) Zolpidem Tartrate 10 Mg Tablet, 10 MG PO HS, (Reported) Patient Home Medication List Home Medication List Reviewed: Yes Physical Exam-Cardiology Physical Exam Vital Signs/I&O Capillary Refill : Less Than 3 Seconds Constitutional: appears stated age, AAO x 3; No apparent distress; well-de veloped, well-nourished HEENT: PERRL; No discharge; hearing is well preserved, oral hygience is good; No ulceration, No xanthelasmas are seen Neck: No carotid bruit; carotid pulses are 2 + bilaterally Respiratory: chest is bilaterally symmetric, lungs clear to auscultation Cardiovascular: irregularly irregular, S1 and S2; No diastolic murmur, No systolic murmur Gastrointestinal: soft, audible bowel sounds; No spleenomegaly Rectal: deferred Extremities: normal range of motion, non-tender, normal inspection; No clubbing, No cyanosis; no lower extremity edema bilateral; No significant edema Neurologic/Psychiatric: no motor/sensory deficits, alert, normal mood/affect, oriented x 3, power is 5/5 both on sides Skin: normal color; No rash, No ulcerations Data Review Labs ECG Impression ECG Initial ECG Impression: Atrial Fibrillation w/RVR A/P-Cardiology Assessment/Admission Diagnosis Persistent atrial fibrillation with rapid ventricular rate, Hyperlipidemia, Hypertension Plan Persistent atrial fibrillation with rapid ventricular rate, beta blockers given with better heart rate control. Ablation for atrial fibrillation planned on February 08, 2020. Continue warfarin. Hypertension: Continue valsartan and amlodipine. Hyperlipidemia, continue atorvastatin. Thank you for your consultation. Please call me if you have any questions. Saray Chauhan MD, FACP, FACC, FSCAI, FHRS, CCDS Interventional Cardiology Cardiac Electrophysiology Vascular Medicine and Endovascular Interventions Clinical Quality Measures AMI/AHF: ASA po Prior to arrival: Alia Anthony MD Jan 23, 2020 16:42
== END 2020-01-23 14:10 | disposition home or self-care (01) ==
LOC: EDUNIT# 11:54 → ER 11:55
DX: I48.91 Unspecified atrial fibrillation (principal); J44.9 Chronic obstructive pulmonary disease, unspecified; I25.10 Atherosclerotic heart disease of native coronary artery without angina pectoris; E78.00 Pure hypercholesterolemia, unspecified; I10 Essential (primary) hypertension; K21.9 Gastro-esophageal reflux disease without esophagitis; F41.9 Anxiety disorder, unspecified; F32.9 Major depressive disorder, single episode, unspecified; M19.90 Unspecified osteoarthritis, unspecified site; M54.9 Dorsalgia, unspecified; Z95.1 Presence of aortocoronary bypass graft; Z79.01 Long term (current) use of anticoagulants; Z79.899 Other long term (current) drug therapy
CPT/HCPCS: 36415; 71045; 80053; 83735; 83874; 83880; 84484; 85025; 85610; 85730; 93005; 93041; 96374

== ENCOUNTER → 2020-02-05 | Outpatient (CLI) | payer MEDICARE, OTHER ==
[~2020-02-05] MED LIST changes: +METO-333 PO; +METO-351 PO
== END ==
LOC: LABNPT 06:44
PROVIDERS: ATTEND Internal Medicine Interventional Cardiology
DX: Z01.812 Encounter for preprocedural laboratory examination (principal); Z20.828 Contact with and (suspected) exposure to other viral communicable diseases
CPT/HCPCS: 87635

== ENCOUNTER 2020-02-19 13:06 | Outpatient (RCR) | payer MEDICARE, OTHER ==
[2020-02-12 13:15] VITALS: BP 122/66
[2020-02-12] MEDS: FERRIC CARBOXYMALTOSE INJ 750 MG in NS (IVPB) 250 ML IV SCH (13:47)
[~2020-02-19] VITALS: Ht 167.7 cm; Wt 117.3 kg
[~2020-02-19 13:06] MED LIST changes: -CHOL2000 PO; +CHOL200074 PO
[2020-02-19] MEDS: FERRIC CARBOXYMALTOSE INJ 750 MG in NS (IVPB) 250 ML IV SCH (13:24)
[2020-02-19 14:17] VITALS: BP 129/80
== END 2020-02-19 14:17 | disposition home or self-care (01) ==
LOC: SDC 13:06
PROVIDERS: ATTEND Nurse Practitioner Family
DX: D50.9 Iron deficiency anemia, unspecified (principal)
CPT/HCPCS: 96365

== ENCOUNTER → 2020-02-26 | Outpatient (CLI) | payer MEDICARE, OTHER ==
[~2020-02-26] MED LIST changes: +LACT1CAP62 PO; +WARF6TAB49 PO
== END ==
LOC: LABNPT 06:54
PROVIDERS: ATTEND Internal Medicine Interventional Cardiology
DX: Z01.812 Encounter for preprocedural laboratory examination (principal); Z20.828 Contact with and (suspected) exposure to other viral communicable diseases
CPT/HCPCS: 87635

== ENCOUNTER 2020-02-29 07:56 | Day surgery (SDC) | payer MEDICARE, OTHER ==
[2020-02-29] VITALS (10 sets, daily range): BP systolic 119–151; BP diastolic 53–94
[~2020-02-29] VITALS: Ht 168 cm; Wt 117.0 kg
[~2020-02-29 07:56] MED LIST changes: -LACT1CAP62 PO; -WARF6TAB49 PO
[2020-02-29] MEDS ORDERED: NS IV 1000 ML 1,000 ML IV ONE (07:58)
[2020-02-29] MEDS ORDERED: NS IV 1000 ML 1,000 ML ONE (07:59)
[2020-02-29] MEDS ORDERED: LIDOCAINE 2% VISCOUS 15 ML UDC ONE (07:59)
[2020-02-29] MEDS ORDERED: MIDAZOLAM 5 MG/5 ML (VERSED) VIAL IV ONE (08:00)
[2020-02-29] MEDS ORDERED: fentaNYL INJECTION 100 MCG/2 ML AMP IV ONE (08:00)
[2020-02-29] MEDS ORDERED: LIDOCAINE 2% VISCOUS 15 ML UDC PO ONE (08:00)
[2020-02-29] MEDS ORDERED: LACT1CAP62 PO (08:21)
[2020-02-29] MEDS ORDERED: OXYB10TA29 PO (08:21)
[2020-02-29] MEDS ORDERED: FURO20TA4 PO (08:21)
[2020-02-29] MEDS ORDERED: WARF4TAB70 PO ×3 (08:21→10:34)
[2020-02-29] MEDS ORDERED: proPOfol 200 MG/20 ML (DIPRIVAN) VIAL IV ONE (08:40)
[2020-02-29] MEDS ORDERED: MIDAZOLAM 2 MG/2 ML (VERSED) VIAL ONE (08:40)
[2020-02-29 09:15] LABS: INR 1.5 (0.8-1.4); PROTHROMBIN TIME PATIENT 18.8 SEC (12.2-14.7)
--- NOTE | 2020-02-29 09:29 | Anesthesia-Procedure Note ---
Procedures/Interventions Procedure Start/Stop/Diagnosis Date of Procedure: Feb 29, 2020 Start Time: 09:00 Stop Time: 09:23 VIANCA/Cardioversion ASA Class: 3 Medications versed 2mg propofol 100mg Monitors and Equipment: BP Cuff - Left, End Tidal CO2, IV, Pulse Oximeter SANDRA ISLAS CRNA Feb 29, 2020 09:29
--- OUTSIDE RECORDS SUMMARY | 2020-02-29 09:29 | XMS REPORT | Continuity of Care Document ---
Author Organization Unknown Address Unknown Phone Unavailable Allergies Active Description Code Type Severity Reaction Onset Reported/Identified Relationship to Patient Clinical Status Yes Iodinated Contrast Media - IV Dye [id number] Drug Allergy Mild NAUSEA 04/24/20 07 Yes Iodinated Contrast Media - Oral and [id number] Drug Allergy Mild NAUSEA 04/24/2007 Yes Iodinated Contrast- Oral and IV Dye [id number] Drug Allergy Mild NAUSEA 04/24/2007 Yes penicillin G [id number] Drug Allergy Unknown N/A 04/24/2007 Yes Iodinated Contrast Media [id number] Drug Allergy Mild NAUSEA 11/28/2019 Yes penicillin G [id number] Drug Allergy Mild RASH 11/28/2019 Medications There is no data. 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 00 SPINAL STENOSIS NOS 04/02/2013 [...] 11/23/2014 EDD VALLE MD Ot 733.90 12/14/2014 PAMELA JOSHI [...] OF AORTOCORONARY BYPASS GRAFT 10/15/2015 SHEILA NARAYANAN CIRCLE EDGER Ot I50 .9 10/15/2015 SHEILA NARAYANAN CIRCLE EDGER Ot R60 .0 10/15/2015 SHEILA NARAYANAN CIRCLE EDGER Ot Z95 .1 02/05/2016 MEDINA-IVONE PA, MARU K Ot I71.4 ABDOMINAL AORTIC ANEURYSM, WITHOUT RUPTU 02/05/2016 MEDINA-IVONE PA, MARU K Ot I10 ESSENTIAL (PRIMARY) HYPERTENSION 02/05/2016 MEDINA-IVONE PA, MARU K Ot I25.10 ATHSCL HEART DISEASE OF [place] CORONARY 02/05/2016 MEDINA-IVONE PA, MARU K Ot I71.4 ABDOMINAL AORTIC ANEURYSM, WITHOUT RUPTU 02/05/2016 MEDINA-IVONE PA, MARU K Ot R07.89 OTHER CHEST PAIN 02/10/2016 MEDINA-IVONE PA, MARU K Ot I10 ESSENTIAL (PRIMARY) HYPERTENSION 02/10/2016 MEDINA-IVONE PA, MARU K Ot I25.10 ATHSCL HEART DISEASE OF [place] CORONARY 02/10/2016 MEDINA-IVONE PA, MARU K Ot I71.4 ABDOMINAL AORTIC ANEURYSM, WITHOUT RUPTU 02/10/2016 MEDINA-IVONE PA, MARU K Ot R07.89 OTHER CHEST PAIN 02/10/2016 MEDINA-IVONE PA, MARU K Ot I71.4 ABDOMINAL AORTIC ANEURYSM, WITHOUT RUPTU 02/10/2016 MEDINA-IVONE PA, MARU K Ot I10 ESSENTIAL (PRIMARY) HYPERTENSION 02/10/2016 MEDINA-IVONE PA, MARU K Ot I25.10 ATHSCL HEART DISEASE OF [place] CORONARY 02/10/2016 MEDINA-IVONE PA, MARU K Ot I71.4 ABDOMINAL AORTIC ANEURYSM, WITHOUT RUPTU 02/10/2016 MEDINA-IVONE PA, MARU K Ot R07.89 OTHER CHEST PAIN 02/25/2016 MEDINA-IVONE PA, MARU K Ot I10 ESSENTIAL (PRIMARY) HYPERTENSION 02/25/2016 MEDINA-IVONE PA, MARU K Ot I25.10 ATHSCL HEART DISEASE OF [place] CORONARY 02/25/2016 MEDINA-IVONE PA, MARU K Ot I71.4 ABDOMINAL AORTIC ANEURYSM, WITHOUT RUPTU 02/25/2016 MEDINA-IVONE PA, MARU K Ot R07.89 OTHER CHEST PAIN 03/04/2016 MEDINA-IVONE PA, MARU Moore Ot I10 ESSENTIAL (PRIMARY) HYPERTENSION 03/04/2016 MEDINA-IVONE PA, MARU Moore Ot I25.10 ATHSCL HEART DISEASE OF [place] CORONARY 03/04/2016 MEDINA-IVONE PA, MARU Moore Ot I71.4 ABDOMINAL AORTIC ANEURYSM, WITHOUT RUPTU 03/04/2016 MEDINA-IVONE REBOLLEDO, MARU Moore Ot R07.89 OTHER CHEST PAIN 03/05/2016 MEDINA-IVONE PA, MARU Moore Ot I10 ESSENTIAL (PRIMARY) HYPERTENSION 03/05/2016 MEDINA-IVONE PA, MARU Moore Ot I25.10 ATHSCL HEART DISEASE OF [place] CORONARY 03/05/2016 MEDINA-IVONE PA, MARU Moore Ot I71.4 ABDOMINAL AORTIC ANEURYSM, WITHOUT RUPTU 03/05/2016 MEDINA-IVONE REBOLLEDO, MARU Moore Ot R07.89 OTHER CHEST PAIN 03/06/2016 MEDINA-IVONE REBOLLEDO, MARU Moore Ot I10 ESSENTIAL (PRIMARY) HYPERTENSION 03/06/2016 MEDINAMARI PA, MARU Moore Ot I25.10 ATHSCL HEART DISEASE OF [place] CORONARY 03/06/2016 VIKTOR PA, MARU Moore Ot I71.4 ABDOMINAL AORTIC ANEURYSM, WITHOUT RUPTU 03/06/2016 MEDINA-IVONE PA, MARU Moore Ot R07.89 OTHER CHEST PAIN 03/17/2016 MEDINA-IVONE PA, MARU Moore Ot I10 ESSENTIAL (PRIMARY) HYPERTENSION 03/17/2016 MEDINABLAIR REBOLLEDO, MARU Moore Ot I25.10 ATHSCL HEART DISEASE OF [place] CORONARY 03/17/2016 MEDINAMARI PA, MARU Moore Ot I71.4 ABDOMINAL AORTIC ANEURYSM, WITHOUT RUPTU 03/17/2016 FAUSTINOIVONE REBOLLEDO, MARU Moore Ot R07.89 OTHER CHEST [...] ESSENTIAL (PRIMARY) HYPERTENSION 08/01/2016 DEMETRIS SCHAFER, RICK S Ot R07. 89 OTHER CHEST PAIN 08/01/2016 DEMETRIS SCHAFER, RICK S Ot R07. 9 CHEST PAIN, UNSPECIFIED 08/01/2016 DEMETRIS SCHAFER, RICK S Ot R11. 0 NAUSEA 08/01/2016 DEMETRIS SCHAFER, RICK Corbin Ot Z79. 82 [facility] (CURRENT) USE OF ASPIRIN 08/01/2016 DEMETRIS SCHAFER, RICK Corbin Ot Z79.899 OTHER RETAIL PLANNER (CURRENT) DRUG THERAPY 08/02/2016 Ot V76.12 OTH SCREEN MAMMO- MALIGN NEOPLASM OF [place] 08/02/2016 Ot 244.8 ACQU IRED HYPOTHYROID NEC 08/02/2016 Ot 250.00 TREE B CHRISSY WO COMPL, TYPE II OR UNSPEC TY 08/02/2016 Ot 272.4 HYPE RLIPIDEMIA NEC/NOS 08/02/2016 Ot 401.9 HYPE RTENSION NOS 08/02/2016 Ot 414.01 COR ONARY ATHEROSCLEROSIS OF [place] CORON 08/02/2016 Ot 272.4 HYPE RLIPIDEMIA NEC/NOS [...] 08/02/2016 Ot 414.01 COR ONARY ATHEROSCLEROSIS OF [place] CORON 08/02/2016 EDD VALLE MD Ot V76.12 [...] LUMBAGO 08/02/2016 MADELYN SCHAFER, PAMELA Aragon Ot 733.1 3 PATHOLOGIC FRACTURE, VERTEBRAE 08/02/2016 TORI SCHAFER, EDD Rojo Ot 733.13 PATHOLOGIC FRACTURE, VERTEBRAE 08/02/2016 TORI SCHAFER, EDD Rojo Ot 733.90 BONE CARTILAGE DIS NOS 08/02/2016 MOHSEN MORRIS MD Ot 272. 4 HYPERLIPIDEMIA NEC/NOS 08/02/2016 MOHSEN MORRIS MD Ot 401. 9 HYPERTENSION NOS 08/02/2016 MOHSEN MORRIS MD Ot 414. 00 CORON ATHEROSCLER NOS TYPE VESSEL, NATIV 08/02/2016 MOHSEN MORRIS MD Ot 786. 09 RESPIRATORY ABNORM NEC 08/02/2016 MARU TAVERAS Ot I10 ESSENTIAL (PRIMARY) HYPERTENSION 08/02/2016 MARU TAVERAS Ot I25.10 ATHSCL HEART DISEASE OF [place] CORONARY 08/02/2016 MARU TAVERAS Ot I71.4 ABDOMINAL AORTIC ANEURYSM, WITHOUT RUPTU 08/02/2016 MARU TAVERAS Ot R07.89 OTHER CHEST PAIN 08/02/2016 MARU TAVERAS Ot I10 ESSENTIAL (PRIMARY) HYPERTENSION 08/02/2016 MARU TAVERAS Ot I25.10 ATHSCL HEART DISEASE OF [place] CORONARY 08/02/2016 MARU TAVERAS Ot I71.4 ABDOMINAL AORTIC ANEURYSM, WITHOUT RUPTU 08/02/2016 MARU TAVERAS Ot R07.89 OTHER CHEST PAIN 08/02/2016 MARU TAVERAS Ot I10 ESSENTIAL (PRIMARY) HYPERTENSION 08/02/2016 MARU TAVERAS Ot I25.10 ATHSCL HEART DISEASE OF [place] CORONARY 08/02/2016 MARU TAVERAS Ot I71.4 ABDOMINAL AORTIC ANEURYSM, WITHOUT RUPTU 08/02/2016 MARU TAVERAS Ot R07.89 OTHER CHEST PAIN 08/03/2016 DEMETRIS SCHAFER, RICK Alaniz Ot I10 ESSENTIAL (PRIMARY) HYPERTENSION 08/03/2016 RICK WILLSON MD Ot R07. 89 OTHER CHEST PAIN 08/03/2016 DEMETRIS SCHAFER, RICK Alaniz Ot R07. 9 CHEST PAIN, UNSPECIFIED 08/03/2016 DEMETRIS SCHAFER, RICK S Ot R11. 0 NAUSEA 08/03/2016 DEMETRIS SCHAFER, RICK Alaniz Ot Z79. 82 [facility] (CURRENT) USE OF ASPIRIN 08/03/2016 DEMETRIS SCHAFER, RICK Corbin Ot Z79.899 OTHER RETAIL PLANNER (CURRENT) DRUG THERAPY 08/25/2016 Ot V76.12 OTH SCREEN MAMMO- MALIGN NEOPLASM OF [place] 08/25/2016 Ot 244.8 ACQU IRED HYPOTHYROID NEC 08/25/2016 Ot 250.00 TREE B CHRISSY WO COMPL, TYPE II OR UNSPEC TY 08/25/2016 Ot 272.4 HYPE RLIPIDEMIA NEC/NOS 08/25/2016 Ot 401.9 HYPE RTENSION NOS 08/25/2016 Ot 414.01 COR ONARY ATHEROSCLEROSIS OF [place] CORON 08/25/2016 Ot 272.4 HYPE RLIPIDEMIA NEC/NOS [...] 08/25/2016 Ot 414.01 COR ONARY ATHEROSCLEROSIS OF [place] CORON 08/25/2016 EDD VALLE MD Ot V76.12 [...] LUMBAGO 08/25/2016 MADELYN SCHAFER, PAMELA Aragon Ot 733.1 3 PATHOLOGIC FRACTURE, VERTEBRAE 08/25/2016 EDD VALLE MD Ot 733.13 PATHOLOGIC FRACTURE, VERTEBRAE 08/25/2016 EDD VALLE MD Ot 733.90 BONE CARTILAGE DIS NOS 08/25/2016 MOHSEN MORRIS MD Ot 272. 4 HYPERLIPIDEMIA NEC/NOS 08/25/2016 MOHSEN MORRIS MD Ot 401. 9 HYPERTENSION NOS 08/25/2016 MOHSEN MORRIS MD Ot 414. 00 CORON ATHEROSCLER NOS TYPE VESSEL, NATIV 08/25/2016 MOHSEN MORRIS MD Ot 786. 09 RESPIRATORY ABNORM NEC 08/25/2016 AYDEN TAVERASTH K Ot I10 ESSENTIAL (PRIMARY) HYPERTENSION 08/25/2016 VIKTOR REBOLLEDO MARU K Ot I25.10 ATHSCL HEART DISEASE OF [place] CORONARY 08/25/2016 ADAM-IVONE PA, MARU K Ot I71.4 ABDOMINAL AORTIC ANEURYSM, WITHOUT RUPTU 08/25/2016 ADAM-IVONE PA, MARU K Ot R07.89 OTHER CHEST PAIN 08/25/2016 ADAM-IVONE PA, MARU K Ot I10 ESSENTIAL (PRIMARY) HYPERTENSION 08/25/2016 ADAM-IVONE PA MARU K Ot I25.10 ATHSCL HEART DISEASE OF [place] CORONARY 08/25/2016 ADAM-IVONE PA, MARU K Ot I71.4 ABDOMINAL AORTIC ANEURYSM, WITHOUT RUPTU 08/25/2016 ADAM-IVONE PA, MARU K Ot R07.89 OTHER CHEST PAIN 08/25/2016 ADAM-IVONE PA, MARU K Ot I10 ESSENTIAL (PRIMARY) HYPERTENSION 08/25/2016 ADAM-IVONE PA, MARU K Ot I25.10 ATHSCL HEART DISEASE OF [place] CORONARY 08/25/2016 MEDINA-IVONE PA, MARU K Ot I71.4 ABDOMINAL AORTIC ANEURYSM, WITHOUT RUPTU 08/25/2016 ADAM-IVONE REBOLLEDO, MARU K Ot R07.89 OTHER CHEST PAIN 08/26/2016 MOHSEN MORRIS MD Ot E78. 5 HYPERLIPIDEMIA, UNSPECIFIED 08/26/2016 MOHSEN MORRIS MD Ot I10 ESSENTIAL (PRIMARY) HYPERTENSION 08/26/2016 MOHSEN MORRIS MD Ot I25. 10 ATHSCL HEART DISEASE OF [place] CORONARY 08/26/2016 MOHSEN MORRIS MD Ot I27. [...] 08/26/2016 MOHSEN MORRIS MD Ot Z79.899 OTHER RETAIL PLANNER (CURRENT) DRUG THERAPY 08/26/2016 MOHSEN MORRIS MD Ot Z95. 1 PRESENCE OF AORTOCORONARY BYPASS GRAFT 09/02/2016 MOHSEN MORRIS MD Ot E78. 5 HYPERLIPIDEMIA, UNSPECIFIED 09/02/2016 MOHSEN MORRIS MD Ot I10 ESSENTIAL (PRIMARY) HYPERTENSION 09/02/2016 MOHSEN MORRIS MD Ot I25. 10 ATHSCL HEART DISEASE OF [place] CORONARY 09/02/2016 MOHSEN MORRIS MD Ot I27. [...] 09/02/2016 MOHSEN MORRIS MD Ot Z79.899 OTHER RETAIL PLANNER (CURRENT) DRUG THERAPY 09/02/2016 MOHSEN MORRIS MD Ot Z95. 1 PRESENCE OF AORTOCORONARY BYPASS GRAFT 09/08/2016 AGUSTIN HOWELL CIRCLE EDGER Ot M79.605 PAIN IN LEFT LEG 09/09/2016 AGUSTIN HOWELL CIRCLE EDGER Ot M25.562 PAIN IN LEFT KNEE 09/09/2016 AGUSTIN HOWELL CIRCLE EDGER Ot M79.605 PAIN IN LEFT LEG 09/13/2016 AGUSTIN HOWELL CIRCLE EDGER Ot M25.562 PAIN IN LEFT KNEE 09/13/2016 AGUSTIN HOWELL APRN Ot M79.605 PAIN IN LEFT LEG 09/29/2016 MARU TAVERAS Ot E78.2 MIXED HYPERLIPIDEMIA 09/29/2016 MARU TAVERAS Ot G47.33 OBSTRUCTIVE SLEEP APNEA (ADULT) (PEDIATR 09/29/2016 MARU TAVERAS Ot I10 ESSENTIAL (PRIMARY) HYPERTENSION 09/29/2016 MARU TAVERAS Ot I25.10 ATHSCL HEART DISEASE OF [place] CORONARY 09/30/2016 AGUSTIN HOWELL CIRCLE EDGER Ot M25.562 PAIN IN LEFT KNEE 09/30/2016 AGUSTIN HOWELL CIRCLE EDGER Ot M79.605 PAIN IN LEFT LEG 10/22/2016 MARU TAVERAS Ot E78.2 MIXED HYPERLIPIDEMIA 10/22/2016 MARU TAVERAS Ot G47.33 OBSTRUCTIVE SLEEP APNEA (ADULT) (PEDIATR 10/22/2016 MARU TAVERAS Ot I10 ESSENTIAL (PRIMARY) HYPERTENSION 10/22/2016 MARU TAVERAS Ot I25.10 ATHSCL HEART DISEASE OF [place] CORONARY 10/24/2016 Ot 401.9 HYPE RTENSION NOS [...] 12/23/2016 Ot 414.01 COR ONARY ATHEROSCLEROSIS OF [place] CORON 12/23/2016 EDD VALLE MD Ot V76.12 [...] NOS 12/23/2016 ALEXANDRA SCHAFER, MOHSEN Aragon Ot 272. 4 HYPERLIPIDEMIA NEC/NOS 12/23/2016 ALEXANDRA SCHAFER, MOHSEN Aragon Ot 401. 9 HYPERTENSION NOS 12/23/2016 MOHSEN MORRIS MD Ot 414. 00 CORON ATHEROSCLER NOS TYPE VESSEL, NATIV 12/23/2016 MOHSEN MORRIS MD Ot 786. 09 RESPIRATORY ABNORM NEC 12/23/2016 MARU TAVERAS Ot I10 ESSENTIAL (PRIMARY) HYPERTENSION 12/23/2016 MARU TAVERAS Ot I25.10 ATHSCL HEART DISEASE OF [place] CORONARY 12/23/2016 MARU TAVERAS Ot I71.4 ABDOMINAL AORTIC ANEURYSM, WITHOUT RUPTU 12/23/2016 MARU TAVERAS Ot R07.89 OTHER CHEST PAIN 12/23/2016 MARU TAVERAS Ot I10 ESSENTIAL (PRIMARY) HYPERTENSION 12/23/2016 MARU TAVERAS Ot I25.10 ATHSCL HEART DISEASE OF [place] CORONARY 12/23/2016 MARU TAVERAS Ot I71.4 ABDOMINAL AORTIC ANEURYSM, WITHOUT RUPTU 12/23/2016 MARU TAVERAS Ot R07.89 OTHER CHEST PAIN 12/23/2016 MARU TAVERAS Ot I10 ESSENTIAL (PRIMARY) HYPERTENSION 12/23/2016 MARU TAVERAS Ot I25.10 ATHSCL HEART DISEASE OF [place] CORONARY 12/23/2016 MARU TAVERAS Ot I71.4 ABDOMINAL AORTIC ANEURYSM, WITHOUT RUPTU 12/23/2016 MARU TAVERAS Ot R07.89 OTHER CHEST PAIN 12/23/2016 AGUSTIN HOWELL APRN Ot M25.562 PAIN IN LEFT KNEE 12/23/2016 AGUSTIN HOWELL Alia MONTEIRO Ot M79.605 PAIN IN LEFT LEG 12/23/2016 MARU TAVERAS Ot E78.2 MIXED HYPERLIPIDEMIA 12/23/2016 MARU TAVERAS Ot G47.33 OBSTRUCTIVE SLEEP APNEA (ADULT) (PEDIATR 12/23/2016 MARU TAVERAS Ot I10 ESSENTIAL (PRIMARY) HYPERTENSION 12/23/2016 MARU TAVERAS Ot I25.10 ATHSCL HEART DISEASE OF [place] CORONARY 02/16/2017 MARU TAVERAS Ot E78.2 MIXED HYPERLIPIDEMIA 02/16/2017 MARU TAVERAS Ot I10 ESSENTIAL (PRIMARY) HYPERTENSION 02/16/2017 MARU TAVERAS Ot I25.10 ATHSCL HEART DISEASE OF [place] CORONARY 02/16/2017 MARU TAVERAS Ot R00.2 PALPITATIONS 02/23/2017 STEFFI SCHAFER, BIBIANA Roach Ot I49.9 CARDIAC ARRHYTHMIA, UNSPECIFIED 02/23/2017 STEFFI SCHAFER, BIBIANA Roach Ot R53.83 OTHER FATIGUE 03/03/2017 MARU TAVERAS Ot E78.2 MIXED HYPERLIPIDEMIA 03/03/2017 MARU TAVERAS Ot I10 ESSENTIAL (PRIMARY) HYPERTENSION 03/03/2017 MARU TAVERAS Ot I25.10 ATHSCL HEART DISEASE OF [place] CORONARY 03/03/2017 MARU TAVERAS Ot R00.2 PALPITATIONS 03/04/2017 MARU TAVERAS Ot E78.2 MIXED HYPERLIPIDEMIA 03/04/2017 MARU TAVERAS Ot I10 ESSENTIAL (PRIMARY) HYPERTENSION 03/04/2017 MARU TAVERAS Ot I25.10 ATHSCL HEART DISEASE OF [place] CORONARY 03/04/2017 MARU TAVERAS Ot R00.2 PALPITATIONS 03/10/2017 ALEXANDRA SCHAFER, MOHSEN Aragon Ot E78. 2 MIXED HYPERLIPIDEMIA 03/10/2017 ALEXANDRA SCHAFER, MOHSEN Aragon Ot I10 ESSENTIAL (PRIMARY) HYPERTENSION 03/10/2017 ALEXANDRA SCHAFERMOHSEN Ot I25. 10 ATHSCL HEART DISEASE OF [place] CORONARY 03/10/2017 MOHSEN MORRIS MD Ot I34. 0 NONRHEUMATIC MITRAL (VALVE) INSUFFICIENC 03/10/2017 MOHSEN MORRIS MD Ot I48. 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 01 [facility] (CURRENT) USE OF ANTICOAGULANT 03/10/2017 MOHSEN MORRIS MD Ot Z79.899 OTHER [facility] (CURRENT) DRUG THERAPY 03/10/2017 MOHSEN MORRIS MD Ot Z95. 1 PRESENCE OF AORTOCORONARY BYPASS GRAFT 03/23/2017 MOHSEN MORRIS MD Ot E78. 2 MIXED HYPERLIPIDEMIA 03/23/2017 MOHSEN MORRIS MD, Ot I10 ESSENTIAL (PRIMARY) HYPERTENSION 03/23/2017 MOHSEN MORRIS MD Ot I25. 10 ATHSCL HEART DISEASE OF [place] CORONARY 03/23/2017 MOHSEN MORRIS MD Ot I34. 0 NONRHEUMATIC MITRAL (VALVE) INSUFFICIENC 03/23/2017 MOHSEN MORRIS MD Ot I48. 0 PAROXYSMAL ATRIAL FIBRILLATION 03/23/2017 MOHSEN MORRIS MD Ot Z79. 01 [facility] (CURRENT) USE OF ANTICOAGULANT 03/23/2017 MOHSEN MORRIS MD Ot Z79.899 OTHER [facility] (CURRENT) DRUG THERAPY 03/23/2017 MOHSEN MORRIS MD [...] BREATH 04/20/2017 SHEILA NARAYANAN APRN Ot Z79.01 RETAIL PLANNER (CURRENT) USE OF ANTICOAGULANT 04/20/2017 SHEILA NARAYANAN APRN Ot Z87.891 PERSONAL HISTORY OF NICOTINE DEPENDENCE 04/20/2017 SHEILA NARAYANAN APRN Ot Z96 .0 PRESENCE OF UROGENITAL IMPLANTS 04/28/2017 MOHSEN MORRIS MD Ot E66. 01 MORBID (SEVERE) OBESITY DUE TO EXCESS CA 04/28/2017 MOHSEN MORRIS MD Ot E78. 5 HYPERLIPIDEMIA, UNSPECIFIED 04/28/2017 MOHSEN MORRIS MD Ot I10 ESSENTIAL (PRIMARY) HYPERTENSION 04/28/2017 MOHSEN MORRIS MD Ot I25. 10 ATHSCL HEART DISEASE OF [place] CORONARY 04/28/2017 MOHSEN MORRIS MD Ot I48. 0 PAROXYSMAL ATRIAL FIBRILLATION 04/28/2017 MOHSEN MORRIS MD Ot I71. 4 ABDOMINAL AORTIC ANEURYSM, WITHOUT RUPTU 04/28/2017 MOHSEN MORRIS MD Ot Z68. 41 BODY MASS INDEX (BMI) 40.0-44.9, ADULT 04/28/2017 MOHSEN MORRIS MD Ot Z79. 01 [facility] (CURRENT) USE OF ANTICOAGULANT 04/28/2017 MOHSEN MORRIS MD, Ot Z79.899 OTHER [facility] (CURRENT) DRUG THERAPY 04/28/2017 MOHSEN MORRIS MD, [...] 08/26/2017 Ot 414.01 COR ONARY ATHEROSCLEROSIS OF [place] CORON 08/26/2017 EDD VALLE MD Ot V76.12 [...] Ot 733.90 BONE CARTILAGE DIS NOS 08/26/2017 ALEXANDRA SCHAFER, MOHSEN Aragon Ot 272. 4 HYPERLIPIDEMIA NEC/NOS 08/26/2017 MOHSEN MORRIS MD Ot 401. 9 HYPERTENSION NOS 08/26/2017 ALEXANDRA SCHAFER, MOHSEN Aragon Ot 414. 00 CORON ATHEROSCLER NOS TYPE VESSEL, NATIV 08/26/2017 MOHSEN MORRIS MD Ot 786. 09 RESPIRATORY ABNORM NEC 08/26/2017 MARU TAVERAS Ot I10 ESSENTIAL (PRIMARY) HYPERTENSION 08/26/2017 MARU TAVERAS Ot I25.10 ATHSCL HEART DISEASE OF [place] CORONARY 08/26/2017 MARU TAVERAS Ot I71.4 ABDOMINAL AORTIC ANEURYSM, WITHOUT RUPTU 08/26/2017 VIKTOR REBOLLEDO, MARU Moore Ot R07.89 OTHER CHEST PAIN 08/26/2017 VIKTOR REBOLLEDO, MARU Moore Ot I10 ESSENTIAL (PRIMARY) HYPERTENSION 08/26/2017 VIKTOR REBOLLEDO, MARU K Ot I25.10 ATHSCL HEART DISEASE OF [place] CORONARY 08/26/2017 VIKTOR REBOLLEDO, MARU K Ot I71.4 ABDOMINAL AORTIC ANEURYSM, WITHOUT RUPTU 08/26/2017 VIKTOR REBOLLEDO, MARU K Ot R07.89 OTHER CHEST PAIN 08/26/2017 VIKTOR REBOLLEDO, MARU K Ot I10 ESSENTIAL (PRIMARY) HYPERTENSION 08/26/2017 VIKTOR REBOLLEDO, MARU Moore Ot I25.10 ATHSCL HEART DISEASE OF [place] CORONARY 08/26/2017 VIKTOR REBOLLEDO, MARU K Ot I71.4 ABDOMINAL AORTIC ANEURYSM, WITHOUT RUPTU 08/26/2017 MARU TAVERAS Ot R07.89 OTHER CHEST PAIN 08/26/2017 AGUSTIN HOWELL CIRCLE EDGER Ot M25.562 PAIN IN LEFT KNEE 08/26/2017 AGUSTIN HOWELL CIRCLE EDGER Ot M79.605 PAIN IN LEFT LEG 08/26/2017 VIKTOR REBOLLEDO, MARU Moore Ot E78.2 MIXED HYPERLIPIDEMIA 08/26/2017 VIKTOR REBOLLEDO, MARU Moore Ot G47.33 OBSTRUCTIVE SLEEP APNEA (ADULT) (PEDIATR 08/26/2017 MARU TAVERAS Ot I10 ESSENTIAL (PRIMARY) HYPERTENSION 08/26/2017 MARU TAVERAS Ot I25.10 ATHSCL HEART DISEASE OF [place] CORONARY 08/26/2017 BIBIANA KAPADIA MD Ot I49.9 CARDIAC ARRHYTHMIA, UNSPECIFIED 08/26/2017 BIBIANA KAPADIA MD Ot R53.83 OTHER FATIGUE 08/26/2017 VIKTOR REBOLLEDO, MARU Moore Ot E78.2 MIXED HYPERLIPIDEMIA 08/26/2017 VIKTOR REBOLLEDO, MARU K Ot I10 ESSENTIAL (PRIMARY) HYPERTENSION 08/26/2017 MARU TAVERAS Ot I25.10 ATHSCL HEART DISEASE OF [place] CORONARY 08/26/2017 MARU TAVERAS Ot R00.2 PALPITATIONS 08/26/2017 VIKTOR REBOLLEDO, MARU Moore Ot E78.2 MIXED HYPERLIPIDEMIA 08/26/2017 MARU TAVERAS Ot I10 ESSENTIAL (PRIMARY) HYPERTENSION 08/26/2017 MARU TAVERAS Ot I25.10 ATHSCL HEART DISEASE OF [place] CORONARY 08/26/2017 MARU TAVERAS Ot R00.2 PALPITATIONS 08/27/2017 ROSIE KIRKPATRICK DO Ot E78.00 PURE HYPERCHOLESTEROLEMIA, UNSPECIFIED 08/27/2017 CASIMIRO DO ROSIE K Ot F32.9 MAJOR DEPRESSIVE DISORDER, SINGLE EPISOD 08/27/2017 CASIMIRO DO ROSIE K Ot F41.9 ANXIETY DISORDER, UNSPECIFIED 08/27/2017 CASIMIRO DO ROSIE K Ot I10 ESSENTIAL (PRIMARY) HYPERTENSION 08/27/2017 CASIMIRO VALENTIN ROSIE K Ot I48.0 PAROXYSMAL ATRIAL FIBRILLATION 08/27/2017 ROSIE KIRKPATRICK DO Ot J10.1 FLU DUE TO OT IDENT INFLUENZA VIRUS W O 08/27/2017 AMANUEL KIRKPATRICK DOA Oscar Ot R06.02 SHORTNESS OF BREATH 08/27/2017 AMANUEL KIRKPATRICK DOA Oscar Ot Z87.891 PERSONAL HISTORY OF NICOTINE DEPENDENCE 08/27/2017 ROSIE KIRKPATRICK DO Ot Z88.0 ALLERGY STATUS TO PENICILLIN 08/27/2017 ROSIE KIRKPATRICK DO Ot Z91.041 RADIOGRAPHIC DYE ALLERGY STATUS 09/02/2017 MOHSEN MORRIS MD Ot E78. 2 MIXED HYPERLIPIDEMIA 09/02/2017 ALEXANDRA SCHAFER, MOHSEN Aragon Ot I10 ESSENTIAL (PRIMARY) HYPERTENSION 09/02/2017 MOHSEN MORRIS MD Ot I25. 10 ATHSCL HEART DISEASE OF [place] CORONARY 09/02/2017 MOHSEN MORRIS MD Ot I48. 0 PAROXYSMAL ATRIAL FIBRILLATION 09/02/2017 MOHSEN MORRIS MD Ot R07. 89 OTHER CHEST PAIN 09/04/2017 CASIMIRO AMANUEL VALENTINA K Ot E78.00 PURE HYPERCHOLESTEROLEMIA, UNSPECIFIED 09/04/2017 CASIMIRO DO ROSIE K Ot F32.9 MAJOR DEPRESSIVE DISORDER, SINGLE EPISOD 09/04/2017 CASIMIRO DO ROSIE K Ot F41.9 ANXIETY DISORDER, UNSPECIFIED 09/04/2017 CASIMIRO DO ROSIE Oscar Ot I10 ESSENTIAL (PRIMARY) HYPERTENSION 09/04/2017 CASIMIRO VALENTIN ROSIE Oscar Ot I48.0 PAROXYSMAL ATRIAL FIBRILLATION 09/04/2017 CASIMIRO VALENTIN ROSIE Oscar Ot J10.1 FLU DUE TO OTH IDENT INFLUENZA VIRUS W O 09/04/2017 CASIMIRO VALENTIN ROSIE Oscar Ot R06.02 SHORTNESS OF BREATH 09/04/2017 CASIMIRO VALENTIN ROSIE Moore Ot Z87.891 PERSONAL HISTORY OF NICOTINE DEPENDENCE 09/04/2017 CASIMIRO VALENTINAMANUELA Oscar Ot Z88.0 ALLERGY STATUS TO PENICILLIN 09/04/2017 CASIMIRO VALENTINROSIE Ot Z91.041 RADIOGRAPHIC DYE ALLERGY STATUS 09/22/2017 MOHSEN MORRIS MD Ot E78. 2 MIXED HYPERLIPIDEMIA 09/22/2017 MOHSEN MORRIS MD Ot I10 ESSENTIAL (PRIMARY) HYPERTENSION 09/22/2017 MOHSEN MORRIS MD Ot I25. 10 ATHSCL HEART DISEASE OF [place] CORONARY 09/22/2017 MOHSEN MORRIS MD Ot I48. 0 PAROXYSMAL ATRIAL FIBRILLATION 09/22/2017 MOHSEN MORRIS MD Ot R07. 89 OTHER CHEST PAIN 10/27/2017 PREMA MALIK MD Ot E78.00 PURE HYPERCHOLESTEROLEMIA, UNSPECIFIED 10/27/2017 PREMA MALIK MD Ot F32 .9 MAJOR DEPRESSIVE DISORDER, SINGLE EPISOD 10/27/2017 PREMA MALIK MD Ot F41 .9 ANXIETY DISORDER, UNSPECIFIED 10/27/2017 PREMA MALIK MD Ot G47.30 SLEEP APNEA, UNSPECIFIED 10/27/2017 PREMA AMLIK MD Ot I10 ESSENTIAL (PRIMARY) HYPERTENSION 10/27/2017 PREMA MALIK MD Ot J81 .1 CHRONIC PULMONARY EDEMA 10/27/2017 PREMA MALIK MD Ot K21 .9 GASTRO-ESOPHAGEAL REFLUX DISEASE WITHOUT 10/27/2017 PREMA MALIK MD Ot R06.02 SHORTNESS OF BREATH 10/27/2017 PREMA MALIK MD Ot Z79.01 RETAIL PLANNER (CURRENT) USE OF ANTICOAGULANT 10/27/2017 PREMA MALIK [...] Ot I25. 10 ATHSCL HEART DISEASE OF [place] CORONARY 11/10/2017 MOHSEN MORRIS MD Ot I27. [...] 70 GASTRITIS, UNSPECIFIED, WITHOUT BLEEDING 11/10/2017 MOHSEN MRORIS MD Ot Q21. 1 ATRIAL SEPTAL DEFECT 11/10/2017 MOHSEN MORRIS MD Ot R07. 9 CHEST PAIN, UNSPECIFIED 11/10/2017 MOHSEN MORRIS MD Ot R60. 0 LOCALIZED EDEMA 11/10/2017 MOHSEN MORRIS MD Ot Z86. 79 PERSONAL HISTORY OF OTHER DISEASES OF 11/10/2017 MOHSEN MORRIS MD Ot Z91. 19 PATIENT'S NONCOMPLIANCE W [facility] 11/10/2017 MOHSEN MORRIS MD Ot Z95. 1 PRESENCE OF AORTOCORONARY BYPASS GRAFT 11/11/2017 MOHSEN MORRIS MD Ot E78. 5 HYPERLIPIDEMIA, UNSPECIFIED 11/11/2017 MOHSEN MORRIS MD Ot G47. 33 OBSTRUCTIVE SLEEP APNEA (ADULT) (PEDIATR 11/11/2017 MOHSEN MORRIS MD Ot I10 ESSENTIAL (PRIMARY) HYPERTENSION 11/11/2017 MOHSEN MORRIS MD Ot I25. 10 ATHSCL HEART DISEASE OF [place] CORONARY 11/11/2017 MOHSEN MORRIS MD Ot I27. [...] MD Ot Z91. 19 PATIENT'S NONCOMPLIANCE W [facility] 11/11/2017 MOHSEN MORRIS MD Ot Z95. 1 PRESENCE OF AORTOCORONARY BYPASS GRAFT 11/11/2017 MOHSEN MORRIS MD Ot E78. 5 HYPERLIPIDEMIA, UNSPECIFIED 11/11/2017 MOHSEN MORRIS MD Ot G47. 33 OBSTRUCTIVE SLEEP APNEA (ADULT) (PEDIATR 11/11/2017 MOHSEN MORRIS MD Ot I10 ESSENTIAL (PRIMARY) HYPERTENSION 11/11/2017 MOHSEN MORRIS MD Ot I25. 10 ATHSCL HEART DISEASE OF [place] CORONARY 11/11/2017 MOHSEN MORRIS MD Ot I27. 20 PULMONARY HYPERTENSION, UNSPECIFIED 11/11/2017 MOHSEN MORRIS MD Ot I48. 0 PAROXYSMAL ATRIAL FIBRILLATION 11/11/2017 MOHSEN MORRIS MD Ot I65. 23 OCCLUSION AND STENOSIS OF BILATERAL [place] 11/11/2017 MOHSEN MORRIS MD Ot I73. 9 PERIPHERAL VASCULAR DISEASE, UNSPECIFIED 11/11/2017 MOHSEN MORRIS MD, Ot J44. 9 CHRONIC OBSTRUCTIVE PULMONARY DISEASE, [...] OF TH 11/11/2017 MOHSEN MORRIS MD, Ot Z91. 19 PATIENT'S NONCOMPLIANCE W [facility] 11/11/2017 MOHSEN MORRIS MD, Ot [...] Rojo Ot 733.13 PATHOLOGIC FRACTURE, [place] 03/14/2018 TORI SCHAFER, EDD Rojo Ot 733.90 BONE CARTILAGE DIS NOS 03/14/2018 ALEXANDRA SCHAFER, MOHSEN Aragon Ot 272. 4 HYPERLIPIDEMIA NEC/NOS 03/14/2018 ALEXANDRA SCHAEFR, MOHSEN Aragon Ot 401. 9 HYPERTENSION NOS 03/14/2018 ALEXANDRA SCHAFER, MOHSEN Aragon Ot 414. 00 CORON ATHEROSCLER NOS TYPE VESSEL, NATIV 03/14/2018 ALEXANDRA SCHAFER, MOHSEN Aragon Ot 786. 09 RESPIRATORY ABNORM NEC 03/14/2018 MARU TAVERAS Ot I10 ESSENTIAL (PRIMARY) HYPERTENSION 03/14/2018 MARU TAVERAS Ot I25.10 ATHSCL HEART DISEASE OF [place] CORONARY 03/14/2018 MARU TAVERAS Ot I71.4 ABDOMINAL AORTIC ANEURYSM, WITHOUT RUPTU 03/14/2018 MARU TAVERAS Ot R07.89 OTHER CHEST PAIN 03/14/2018 MARU TAVERAS Ot I10 ESSENTIAL (PRIMARY) HYPERTENSION 03/14/2018 MARU TAVERAS Ot I25.10 ATHSCL HEART DISEASE OF [place] CORONARY 03/14/2018 MEDINA-IVONE PA, MARU K Ot I71.4 ABDOMINAL AORTIC ANEURYSM, WITHOUT RUPTU 03/14/2018 VIKTOR REBOLLEDO, MARU K Ot R07.89 OTHER CHEST PAIN 03/14/2018 VIKTOR REBOLLEDO, MARU K Ot I10 ESSENTIAL (PRIMARY) HYPERTENSION 03/14/2018 VIKTOR REBOLLEDO, MARU K Ot I25.10 ATHSCL HEART DISEASE OF [place] CORONARY 03/14/2018 VIKTOR REBOLLEDO, MARU Oscar Ot I71.4 ABDOMINAL AORTIC ANEURYSM, WITHOUT RUPTU 03/14/2018 VIKTOR REBOLLEDO, MARU K Ot R07.89 OTHER CHEST PAIN 03/14/2018 AGUSTIN HOWELL CIRCLE EDGER Ot M25.562 PAIN IN LEFT KNEE 03/14/2018 AGUSTIN HOWELL CIRCLE EDGER Ot M79.605 PAIN IN LEFT LEG 03/14/2018 VIKTOR REBOLLEDO, MARU K Ot E78.2 MIXED HYPERLIPIDEMIA 03/14/2018 VIKTOR REBOLLEDO, MARU K Ot G47.33 OBSTRUCTIVE SLEEP APNEA (ADULT) (PEDIATR 03/14/2018 VIKTOR REBOLLEDO, MARU K Ot I10 ESSENTIAL (PRIMARY) HYPERTENSION 03/14/2018 VIKTOR REBOLLEDO, MARU K Ot I25.10 ATHSCL HEART DISEASE OF [place] CORONARY 03/14/2018 STEFFI SCHAFER, BIBIANA Roach Ot I49.9 CARDIAC ARRHYTHMIA, UNSPECIFIED 03/14/2018 BIBIANA KAPADIA MD Ot R53.83 OTHER FATIGUE 03/14/2018 VIKTOR REBOLLEDO, MARU K Ot E78.2 MIXED HYPERLIPIDEMIA 03/14/2018 VIKTOR REBOLLEDO, MARU K Ot I10 ESSENTIAL (PRIMARY) HYPERTENSION 03/14/2018 VIKTOR REBOLLEDO, MARU K Ot I25.10 ATHSCL HEART DISEASE OF [place] CORONARY 03/14/2018 VIKTOR REBOLLEDO, MARU K Ot R00.2 PALPITATIONS 03/14/2018 VIKTOR REBOLLEDO, MARU K Ot E78.2 MIXED HYPERLIPIDEMIA 03/14/2018 VIKTOR REBOLLEDO, MARU K Ot I10 ESSENTIAL (PRIMARY) HYPERTENSION 03/14/2018 VIKTOR REBOLLEDO, MARU K Ot I25.10 ATHSCL HEART DISEASE OF [place] CORONARY 03/14/2018 MEDINAMARU SURESH Ot R00.2 PALPITATIONS 03/14/2018 MOHSEN MORRIS MD Ot E78. 2 MIXED HYPERLIPIDEMIA 03/14/2018 MOHSEN MORRIS MD Ot I10 ESSENTIAL (PRIMARY) HYPERTENSION 03/14/2018 MOHSEN MORRIS MD Ot I25. 10 ATHSCL HEART DISEASE OF [place] CORONARY 03/14/2018 MOHSEN MORRIS MD Ot I48. 0 PAROXYSMAL ATRIAL FIBRILLATION 03/14/2018 MOHSEN MORRIS MD Ot R07. 89 OTHER CHEST PAIN 03/15/2018 JUAN SCHAFER, MARINA Carrillo Ot G47.33 OBSTRUCTIVE SLEEP APNEA (ADULT) (PEDIATR 03/18/2018 Ot E78.5 HYPE RLIPIDEMIA, UNSPECIFIED 03/18/2018 Ot I10 ESSENT IAL (PRIMARY) HYPERTENSION 03/18/2018 Ot I25.10 ATH SCL HEART DISEASE OF [place] CORONARY 03/18/2018 Ot R07.89 OTH ER CHEST PAIN 03/23/2018 MOHSEN MORRIS MD Ot E66. 9 OBESITY, UNSPECIFIED 03/23/2018 MOHSEN MORRIS MD Ot E78. 5 HYPERLIPIDEMIA, UNSPECIFIED 03/23/2018 MOHSEN MORRIS MD Ot G47. 33 OBSTRUCTIVE SLEEP APNEA (ADULT) (PEDIATR 03/23/2018 MOHSEN MORRIS MD Ot I10 ESSENTIAL (PRIMARY) HYPERTENSION 03/23/2018 MOHSEN MORRIS MD Ot I25. 10 ATHSCL HEART DISEASE OF [place] CORONARY 03/23/2018 MOHSEN MORRIS MD Ot I27. [...] 03/23/2018 MOHSEN MORRIS MD Ot Z79.899 OTHER RETAIL PLANNER (CURRENT) DRUG THERAPY 03/23/2018 MOHSEN MORRIS MD Ot Z87.891 PERSONAL HISTORY OF NICOTINE DEPENDENCE 03/23/2018 MOHSEN MORRIS MD Ot Z95. 1 PRESENCE OF AORTOCORONARY BYPASS GRAFT 03/25/2018 MARU TAVERAS Ot E78.2 MIXED HYPERLIPIDEMIA 03/25/2018 MARU TAVERAS Ot I10 ESSENTIAL (PRIMARY) HYPERTENSION 03/25/2018 MARU TAVERAS Ot I25.10 ATHSCL HEART DISEASE OF [place] CORONARY 03/25/2018 MARU TAVERAS Ot R07.89 OTHER CHEST PAIN 03/25/2018 MOHSEN MORRIS MD Ot E66. 9 OBESITY, UNSPECIFIED 03/25/2018 MOHSEN MORRIS MD Ot E78. 5 HYPERLIPIDEMIA, UNSPECIFIED 03/25/2018 MOHSEN MORRIS MD Ot G47. 33 OBSTRUCTIVE SLEEP APNEA (ADULT) (PEDIATR 03/25/2018 MOHSEN MORRIS MD Ot I10 ESSENTIAL (PRIMARY) HYPERTENSION 03/25/2018 MOHSEN MORRIS MD Ot I25. 10 ATHSCL HEART DISEASE OF [place] CORONARY 03/25/2018 MOHSEN MORRIS MD Ot I27. [...] 03/25/2018 MOHSEN MORRIS MD Ot Z79.899 OTHER [facility] (CURRENT) DRUG THERAPY 03/25/2018 MOHSEN MORRIS MD Ot Z87.891 PERSONAL HISTORY OF NICOTINE DEPENDENCE 03/25/2018 MOHSEN MORRIS MD Ot Z95. 1 PRESENCE OF AORTOCORONARY BYPASS GRAFT 04/03/2018 JAIR GONSALES DO Ot E78.5 HYPERLIPIDEMIA, UNSPECIFIED 04/03/2018 JAIR GONSALES DO Ot F32.9 MAJOR DEPRESSIVE DISORDER, SINGLE EPISOD 04/03/2018 GONSALES DO, JAIR Ot F41.9 ANXIETY DISORDER, UNSPECIFIED 04/03/2018 GONSALES DO, JAIR Ot G47.00 INSOMNIA, UNSPECIFIED 04/03/2018 GONSALES DO, JAIR Ot G47.33 OBSTRUCTIVE SLEEP APNEA (ADULT) (PEDIATR 04/03/2018 GONSALES DO, JAIR Ot I11.0 HYPERTENSIVE HEART DISEASE WITH HEART FA 04/03/2018 GONSALES DO JAIR Ot I25.10 ATHSCL HEART DISEASE OF [place] CORONARY 04/03/2018 GONSALES DO, JAIR Ot I48.0 PAROXYSMAL ATRIAL FIBRILLATION 04/03/2018 GONSALES DO, JAIR Ot I50.20 UNSPECIFIED SYSTOLIC (CONGESTIVE) HEART 04/03/2018 GONSALES DO, JAIR Ot J44.9 CHRONIC OBSTRUCTIVE PULMONARY DISEASE, U 04/03/2018 GONSALES DO, JAIR Ot K21.9 GASTRO-ESOPHAGEAL REFLUX DISEASE WITHOUT 04/03/2018 GONSALES DO, JAIR Ot Z87.89 1 PERSONAL HISTORY OF NICOTINE DEPENDENCE 04/03/2018 DRU VALENTIN JAIR Ot Z95.1 PRESENCE OF AORTOCORONARY BYPASS GRAFT 04/15/2018 Ot E78.5 HYPE RLIPIDEMIA, UNSPECIFIED 04/15/2018 Ot I10 ESSENT IAL (PRIMARY) HYPERTENSION 04/15/2018 Ot I25.10 ATH SCL HEART DISEASE OF [place] CORONARY 04/15/2018 Ot R07.89 OTH ER CHEST [...] TAVERAS Ot I25.10 ATHSCL HEART DISEASE OF [place] CORONARY 07/04/2018 MARU TAVERAS Ot I71.4 ABDOMINAL AORTIC ANEURYSM, WITHOUT RUPTU 07/04/2018 MARU TAVERAS Ot R07.89 OTHER CHEST PAIN 07/04/2018 MARU TAVERAS Ot I10 ESSENTIAL (PRIMARY) HYPERTENSION 07/04/2018 MARU TAVERAS Ot I25.10 ATHSCL HEART DISEASE OF [place] CORONARY 07/04/2018 VIKTOR REBOLLEDO, MARU K Ot I71.4 ABDOMINAL AORTIC ANEURYSM, WITHOUT RUPTU 07/04/2018 VIKTOR REBOLLEDO, MARU K Ot R07.89 OTHER CHEST PAIN 07/04/2018 VIKTOR REBOLLEDO, MARU K Ot I10 ESSENTIAL (PRIMARY) HYPERTENSION 07/04/2018 VIKTOR REBOLLEDO, MARU K Ot I25.10 ATHSCL HEART DISEASE OF [place] CORONARY 07/04/2018 VIKTOR REBOLLEDO, MARU K Ot I71.4 ABDOMINAL AORTIC ANEURYSM, WITHOUT RUPTU 07/04/2018 VIKTOR REBOLLEDO, MARU K Ot R07.89 OTHER CHEST PAIN 07/04/2018 AGUSTIN HOWELL CIRCLE EDGER Ot M25.562 PAIN IN LEFT KNEE 07/04/2018 AGUSTIN HOWELL CIRCLE EDGER Ot M79.605 PAIN IN LEFT LEG 07/04/2018 VIKTOR REBOLLEDO, MARU K Ot E78.2 MIXED HYPERLIPIDEMIA 07/04/2018 VIKTOR REBOLLEDO, MARU K Ot G47.33 OBSTRUCTIVE SLEEP APNEA (ADULT) (PEDIATR 07/04/2018 VIKTOR REBOLLEDO, MARU K Ot I10 ESSENTIAL (PRIMARY) HYPERTENSION 07/04/2018 VIKTOR REBOLLEDO, MARU K Ot I25.10 ATHSCL HEART DISEASE OF [place] CORONARY 07/04/2018 BIBIANA KAPADIA MD Ot I49.9 CARDIAC ARRHYTHMIA, UNSPECIFIED 07/04/2018 BIBIANA KAPADIA MD Ot R53.83 OTHER FATIGUE 07/04/2018 VIKTOR REBOLLEDO, MARU K Ot E78.2 MIXED HYPERLIPIDEMIA 07/04/2018 VIKTOR REBOLLEDO, MARU K Ot I10 ESSENTIAL (PRIMARY) HYPERTENSION 07/04/2018 VIKTOR REBOLLEDO, MARU K Ot I25.10 ATHSCL HEART DISEASE OF [place] CORONARY 07/04/2018 VIKTOR REBOLLEDO, MARU K Ot R00.2 PALPITATIONS 07/04/2018 VIKTOR REBOLLEDO, MARU K Ot E78.2 MIXED HYPERLIPIDEMIA 07/04/2018 VIKTOR REBOLLEDO, MARU K Ot I10 ESSENTIAL (PRIMARY) HYPERTENSION 07/04/2018 VIKTOR REBOLLEDO, MARU K Ot I25.10 ATHSCL HEART DISEASE OF [place] CORONARY 07/04/2018 VIKTOR REBOLLEDO, MARU Moore Ot R00.2 PALPITATIONS 07/04/2018 ALEXANDRA SCHAFER, MOHSEN Aragon Ot E78. 2 MIXED HYPERLIPIDEMIA 07/04/2018 ALEXANDRA SCHAFER, MOHSEN Aragon Ot I10 ESSENTIAL (PRIMARY) HYPERTENSION 07/04/2018 ALEXANDRA SCHAFER, MOHSEN Aragon Ot I25. 10 ATHSCL HEART DISEASE OF [place] CORONARY 07/04/2018 ALEXANDRA SCHAFER, MOHSEN Aragon Ot I48. 0 PAROXYSMAL ATRIAL FIBRILLATION 07/04/2018 ALEXANDRA SCHAFER, MOHSEN Aragon Ot R07. 89 OTHER CHEST PAIN 07/04/2018 Ot E78.5 HYPE RLIPIDEMIA, UNSPECIFIED 07/04/2018 Ot I10 ESSENT IAL (PRIMARY) HYPERTENSION 07/04/2018 Ot I25.10 ATH SCL HEART DISEASE OF [place] CORONARY 07/04/2018 Ot R07.89 OTH ER CHEST PAIN 07/04/2018 MARU TAVERAS Ot E78.2 MIXED HYPERLIPIDEMIA 07/04/2018 MARU TAVERAS Ot I10 ESSENTIAL (PRIMARY) HYPERTENSION 07/04/2018 MARU TAVERAS Ot I25.10 ATHSCL HEART DISEASE OF [place] CORONARY 07/04/2018 MARU TAVERAS Ot R07.89 OTHER CHEST PAIN 08/03/2018 ALIS GLORIA CERTIFIED MEDICATION AIDE Ot M41.86 OTHER FORMS OF SCOLIOSIS, LUMBAR REGION 08/03/2018 ALIS GLORIAP Ot S32.010A WEDGE COMPRESSION FRACTURE OF FIRST LUMB 08/03/2018 ALIS GLORIAP Ot S32.030A WEDGE COMPRESSION FRACTURE OF THIRD LUMB 08/03/2018 ALIS GLORIA CERTIFIED MEDICATION AIDE Ot S32.040A WEDGE COMPRESSION FRACTURE OF FOURTH LUM 08/07/2018 ALIS GLORIA CERTIFIED MEDICATION AIDE Ot M41.86 OTHER FORMS OF SCOLIOSIS, LUMBAR REGION 08/07/2018 ALIS GLORIAP Ot S32.010A WEDGE COMPRESSION FRACTURE OF FIRST LUMB 08/07/2018 ALIS GLORIA CERTIFIED MEDICATION AIDE Ot S32.030A WEDGE COMPRESSION FRACTURE OF THIRD LUMB 08/07/2018 ALIS GLORIA CERTIFIED MEDICATION AIDE Ot S32.040A WEDGE COMPRESSION FRACTURE OF FOURTH LUM 08/12/2018 MOHSEN MORRIS MD Ot E78. 5 HYPERLIPIDEMIA, UNSPECIFIED 08/12/2018 MOHSEN MORRIS MD Ot G47. 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 10 ATHSCL HEART DISEASE OF [place] CORONARY 08/12/2018 MOHSEN MORRIS MD Ot R07. [...] Ot I25. 10 ATHSCL HEART DISEASE OF [place] CORONARY 08/30/2018 MOHSEN MORRIS MD Ot R07. 89 OTHER CHEST PAIN 08/31/2018 ALIS GLORIA CERTIFIED MEDICATION AIDE Ot M41.86 OTHER FORMS OF SCOLIOSIS, LUMBAR REGION 08/31/2018 ALIS GLORIA CERTIFIED MEDICATION AIDE Ot S32.010A WEDGE COMPRESSION FRACTURE OF FIRST LUMB 08/31/2018 ALIS GLORIA CERTIFIED MEDICATION AIDE Ot S32.030A WEDGE COMPRESSION FRACTURE OF THIRD LUMB 08/31/2018 ALIS GLORIA CERTIFIED MEDICATION AIDE Ot S32.040A WEDGE COMPRESSION FRACTURE OF FOURTH [...] F41.9 ANXIETY DISORDER, UNSPECIFIED 10/11/2018 JOSE POTTER MD, Ot G47.30 SLEEP APNEA, UNSPECIFIED 10/11/2018 JOSE POTTER MD Ot I10 ESSENTIAL (PRIMARY) HYPERTENSION 10/11/2018 JOSE POTTER MD Ot I25.10 ATHSCL HEART DISEASE OF [place] CORONARY 10/11/2018 JOSE POTTER MD Ot I48.91 UNSPECIFIED ATRIAL FIBRILLATION 10/11/2018 JOSE POTTER MD, Ot J44.9 CHRONIC OBSTRUCTIVE PULMONARY DISEASE, U 10/11/2018 JOSE POTTER MD, Ot K21.9 GASTRO-ESOPHAGEAL REFLUX DISEASE WITHOUT 10/11/2018 JOSE POTTER MD, Ot K58.9 IRRITABLE BOWEL SYNDROME WITHOUT DIARRHE 10/11/2018 JOSE POTTER MD Ot R07.9 CHEST PAIN, UNSPECIFIED 10/11/2018 JOSE POTTER MD, Ot Z79.01 [facility] (CURRENT) USE OF ANTICOAGULANT 10/11/2018 JOSE POTTER MD Ot Z82.49 FAMILY HX OF ISCHEM [...] I48. 91 UNSPECIFIED ATRIAL FIBRILLATION 01/13/2019 ALIS GLORIAP Ot I71.4 ABDOMINAL AORTIC ANEURYSM, WITHOUT RUPTU 01/13/2019 ALIS GLORIAP Ot M47.816 SPONDYLOSIS W/O MYELOPATHY OR RADICULOPA 01/13/2019 ALIS GLORIA Ot M85.88 OTH DISRD OF BONE DENSITY AND STRUCTURE, 01/13/2019 ALIS GLORIAP Ot Z87.81 PERSONAL HISTORY OF (HEALED) TRAUMATIC F 01/18/2019 MOHSEN MORRIS MD Ot E78. 2 MIXED HYPERLIPIDEMIA 01/18/2019 MOHSEN MORRIS MD Ot I10 ESSENTIAL (PRIMARY) HYPERTENSION 01/18/2019 MOHSEN MORRIS MD Ot I25. 10 ATHSCL HEART DISEASE OF [place] CORONARY 01/18/2019 MOHSEN MORRIS MD Ot Z95. 1 PRESENCE OF AORTOCORONARY BYPASS GRAFT 01/27/2019 AGUSTIN HOWELL CIRCLE EDGER Ot M47.816 SPONDYLOSIS W/O MYELOPATHY OR RADICULOPA 01/27/2019 AGUSTIN HOWELL CIRCLE EDGER Ot M51.36 OTHER INTERVERTEBRAL DISC DEGENERATION, 01/27/2019 AGUSTIN HOWELL CIRCLE EDGER Ot Z87.81 PERSONAL HISTORY OF (HEALED) TRAUMATIC F 02/02/2019 MOHSEN MORRIS MD Ot I48. 91 UNSPECIFIED ATRIAL FIBRILLATION 02/09/2019 ALIS GLORIA Ot I71.4 ABDOMINAL AORTIC ANEURYSM, WITHOUT RUPTU 02/09/2019 ALIS GLORIAP Ot M47.816 SPONDYLOSIS W/O MYELOPATHY OR RADICULOPA 02/09/2019 ALIS GLORIA Ot M85.88 OTH DISRD OF BONE DENSITY AND STRUCTURE, 02/09/2019 ALIS GLORIAP Ot Z87.81 PERSONAL HISTORY OF (HEALED) TRAUMATIC F 02/13/2019 MOHSEN MORRIS MD Ot E78. 2 MIXED HYPERLIPIDEMIA 02/13/2019 MOHSEN MORRIS MD Ot I10 ESSENTIAL (PRIMARY) HYPERTENSION 02/13/2019 MOHSEN MORRIS MD Ot I25. 10 ATHSCL HEART DISEASE OF [place] CORONARY 02/13/2019 MOHSEN MORRIS MD Ot Z95. 1 PRESENCE OF AORTOCORONARY BYPASS GRAFT 02/16/2019 AGUSTIN HOWELL CIRCLE EDGER Ot M47.816 SPONDYLOSIS W/O MYELOPATHY OR RADICULOPA 02/16/2019 AGUSTIN HOWELL APRN Ot M51.36 OTHER INTERVERTEBRAL DISC DEGENERATION, 02/16/2019 AGUSTIN HOWELL APRN Ot Z87.81 PERSONAL HISTORY OF (HEALED) TRAUMATIC F 02/19/2019 KIMBERLY, MALIKA CERTIFIED MEDICATION AIDE Ot E78.00 PURE HYPERCHOLESTEROLEMIA, UNSPECIFIED 02/19/2019 KIMBERLY, MALIKA CERTIFIED MEDICATION AIDE Ot F32.9 MAJOR DEPRESSIVE DISORDER, SINGLE EPISOD 02/19/2019 KIMBERLY, MALIKA CERTIFIED MEDICATION AIDE Ot F41.9 ANXIETY DISORDER, UNSPECIFIED 02/19/2019 KIMBERLY, MALIKA CERTIFIED MEDICATION AIDE Ot G47.30 SLEEP APNEA, UNSPECIFIED 02/19/2019 KIMBERLY, MALIKA CERTIFIED MEDICATION AIDE Ot I11.0 HYPERTENSIVE HEART DISEASE WITH HEART FA 02/19/2019 KIMBERLY MALIKA CERTIFIED MEDICATION AIDE Ot I25.10 ATHSCL HEART DISEASE OF [place] CORONARY 02/19/2019 KIMBERLY, MALIKA CERTIFIED MEDICATION AIDE Ot I48.91 UNSPECIFIED ATRIAL FIBRILLATION 02/19/2019 KIMBERLY, MALIKA CERTIFIED MEDICATION AIDE Ot I50.9 HEART FAILURE, UNSPECIFIED 02/19/2019 KIMBERLY, MALIKA CERTIFIED MEDICATION AIDE Ot J44.9 CHRONIC OBSTRUCTIVE PULMONARY DISEASE, U 02/19/2019 KIMBERLY, MALIKA CERTIFIED MEDICATION AIDE Ot K21.9 GASTRO-ESOPHAGEAL REFLUX DISEASE WITHOUT 02/19/2019 KIMBERLY, MALIKA CERTIFIED MEDICATION AIDE Ot K58.9 IRRITABLE BOWEL SYNDROME WITHOUT DIARRHE 02/19/2019 KIMBERLY, MALIKA CERTIFIED MEDICATION AIDE Ot M51.36 OTHER INTERVERTEBRAL DISC DEGENERATION, 02/19/2019 KIMBERLY, MALIKA CERTIFIED MEDICATION AIDE Ot M79.89 OTHER SPECIFIED SOFT TISSUE DISORDERS 02/19/2019 KIMBERLY, MALIKA CERTIFIED MEDICATION AIDE Ot N39.0 URINARY TRACT INFECTION, SITE NOT SPECIF 02/19/2019 KIMBERLY, MALIKA CERTIFIED MEDICATION AIDE Ot R60.0 LOCALIZED EDEMA 02/19/2019 KIMBERLYMALIKA CareyP Ot Z79.01 RETAIL PLANNER (CURRENT) USE OF ANTICOAGULANT 02/19/2019 KIMBERLYMALIKA CareyP Ot Z82.49 FAMILY HX OF ISCHEM HEART DIS AND OTH DI 02/19/2019 KIMBERLYMALIKA Carey CERTIFIED MEDICATION AIDE Ot Z87.891 PERSONAL HISTORY OF NICOTINE DEPENDENCE 02/19/2019 KIMBERLYMALIKA Carey CERTIFIED MEDICATION AIDE Ot Z88.0 ALLERGY STATUS TO PENICILLIN 02/19/2019 KIMBERLY, MALIKA CERTIFIED MEDICATION AIDE Ot Z91.041 RADIOGRAPHIC DYE ALLERGY STATUS 02/19/2019 KIMBERLY, MALIKA CERTIFIED MEDICATION AIDE Ot Z95.1 PRESENCE OF AORTOCORONARY BYPASS GRAFT 02/19/2019 KIMBERLYMALIKA Carey CERTIFIED MEDICATION AIDE Ot Z98.890 OTHER SPECIFIED POSTPROCEDURAL STATES 02/21/2019 ALEXANDRA SCHAFER, MOHSEN Aragon Ot I48. 91 UNSPECIFIED ATRIAL FIBRILLATION 02/22/2019 MALIKA HARRIS CERTIFIED MEDICATION AIDE Ot E78.00 PURE HYPERCHOLESTEROLEMIA, UNSPECIFIED 02/22/2019 MALIKA HARRIS CERTIFIED MEDICATION AIDE Ot F32.9 MAJOR DEPRESSIVE DISORDER, SINGLE EPISOD 02/22/2019 MALIKA HARRIS CERTIFIED MEDICATION AIDE Ot F41.9 ANXIETY DISORDER, UNSPECIFIED 02/22/2019 KIMBERLY, MALIKA CERTIFIED MEDICATION AIDE Ot G47.30 SLEEP APNEA, UNSPECIFIED 02/22/2019 KIMBERLY MALIKA CERTIFIED MEDICATION AIDE Ot I11.0 HYPERTENSIVE HEART DISEASE WITH HEART FA 02/22/2019 KIMBERLY MALIKA CERTIFIED MEDICATION AIDE Ot I25.10 ATHSCL HEART DISEASE OF [place] CORONARY 02/22/2019 KIMBERLY MALIKA CERTIFIED MEDICATION AIDE Ot I48.91 UNSPECIFIED ATRIAL FIBRILLATION 02/22/2019 MALIKA HARRIS CERTIFIED MEDICATION AIDE Ot I50.9 HEART FAILURE, UNSPECIFIED 02/22/2019 KIMBERLY MALIKA CERTIFIED MEDICATION AIDE Ot J44.9 CHRONIC OBSTRUCTIVE PULMONARY DISEASE, U 02/22/2019 MALIKA HARRIS CERTIFIED MEDICATION AIDE Ot K21.9 GASTRO-ESOPHAGEAL REFLUX DISEASE WITHOUT 02/22/2019 KIMBERLY, MALIKA CERTIFIED MEDICATION AIDE Ot K58.9 IRRITABLE BOWEL SYNDROME WITHOUT DIARRHE 02/22/2019 KIMBERLY MALIKA CERTIFIED MEDICATION AIDE Ot M51.36 OTHER INTERVERTEBRAL DISC DEGENERATION, 02/22/2019 KIMBERLY MALIKA CERTIFIED MEDICATION AIDE Ot M79.89 OTHER SPECIFIED SOFT TISSUE DISORDERS 02/22/2019 MALIKA HARRIS CERTIFIED MEDICATION AIDE Ot N39.0 URINARY TRACT INFECTION, SITE NOT SPECIF 02/22/2019 MALIKA HARRIS CERTIFIED MEDICATION AIDE Ot R60.0 LOCALIZED EDEMA 02/22/2019 MALIKA HARRIS CERTIFIED MEDICATION AIDE Ot Z79.01 RETAIL PLANNER (CURRENT) USE OF ANTICOAGULANT 02/22/2019 MALIKA HARRIS CERTIFIED MEDICATION AIDE Ot Z82.49 FAMILY HX OF ISCHEM HEART DIS AND OTH DI 02/22/2019 MALIKA HARRIS CERTIFIED MEDICATION AIDE Ot Z87.891 PERSONAL HISTORY OF NICOTINE DEPENDENCE 02/22/2019 KIMBERLY MALIKA CERTIFIED MEDICATION AIDE Ot Z88.0 ALLERGY STATUS TO PENICILLIN 02/22/2019 KIMBERLY MALIKA CERTIFIED MEDICATION AIDE Ot Z91.041 RADIOGRAPHIC DYE ALLERGY STATUS 02/22/2019 KIMBERLY MALIKA CERTIFIED MEDICATION AIDE Ot Z95.1 PRESENCE OF AORTOCORONARY BYPASS GRAFT 02/22/2019 MALIKA HARRIS CERTIFIED MEDICATION AIDE Ot Z98.890 OTHER SPECIFIED POSTPROCEDURAL STATES 03/30/2019 [...] MD Ot I25.10 ATHSCL HEART DISEASE OF [place] CORONARY 05/08/2019 Alia HAN MD Ot I48 .0 PAROXYSMAL ATRIAL FIBRILLATION 05/08/2019 Alia HAN MD Ot I49 .5 SICK SINUS SYNDROME 05/08/2019 Alia HAN MD, Ot I71 .4 ABDOMINAL AORTIC ANEURYSM, WITHOUT RUPTU 05/08/2019 Alia HAN MD Ot Z68.41 BODY MASS INDEX (BMI) 40.0-44.9, ADULT 05/08/2019 Alia HAN MD Ot Z79.01 RETAIL PLANNER (CURRENT) USE OF ANTICOAGULANT 05/08/2019 Alia HAN MD Ot Z79.899 OTHER [facility] (CURRENT) DRUG THERAPY 05/08/2019 Alia HAN MD, Ot Z82.49 FAMILY HX OF ISCHEM HEART DIS AND OTH DI 05/08/2019 Alia HAN MD, Ot Z88 .0 ALLERGY STATUS TO PENICILLIN 05/08/2019 Alia HAN MD Ot Z90.49 ACQUIRED ABSENCE OF OTHER SPECIFIED PART 05/08/2019 Alia HAN MD Ot Z90.710 ACQUIRED ABSENCE OF BOTH CERVIX AND UTER 05/08/2019 Alia HAN MD Ot Z90.89 ACQUIRED ABSENCE OF OTHER ORGANS 05/08/2019 Alia HAN MD, Ot Z91.041 RADIOGRAPHIC DYE ALLERGY STATUS 05/08/2019 Alia HAN MD, Ot Z91.048 OTHER NONMEDICINAL SUBSTANCE ALLERGY STA [...] MD Ot I25.10 ATHSCL HEART DISEASE OF [place] CORONARY 05/24/2019 Alia HAN MD Ot I48 .0 PAROXYSMAL ATRIAL FIBRILLATION 05/24/2019 Alia HAN MD Ot I49 .5 SICK SINUS SYNDROME 05/24/2019 Alia HAN MD Ot I71 .4 ABDOMINAL AORTIC ANEURYSM, WITHOUT RUPTU 05/24/2019 Alia HAN MD Ot Z68.41 BODY MASS INDEX (BMI) 40.0-44.9, ADULT 05/24/2019 Alia HAN MD Ot Z79.01 RETAIL PLANNER (CURRENT) USE OF ANTICOAGULANT 05/24/2019 Alia HAN MD Ot Z79.899 OTHER [facility] (CURRENT) DRUG THERAPY 05/24/2019 Alia HAN MD [...] Ot Z98.890 OTHER SPECIFIED POSTPROCEDURAL STATES 06/28/2019 GUILLE SCHAFER, Alia SWENSON Ot G47.33 OBSTRUCTIVE SLEEP APNEA (ADULT) (PEDIATR 06/28/2019 GUILLE SCHAFER, Alia SWENSON Ot I48 .0 PAROXYSMAL ATRIAL FIBRILLATION 06/28/2019 GUILLE SCHAFER, Alia SWENSON Ot I49 .5 SICK SINUS SYNDROME 06/29/2019 GUILLE SCHAFER, Alia SWENSON Ot G47.33 OBSTRUCTIVE SLEEP APNEA (ADULT) (PEDIATR 06/29/2019 GUILLE SCHAFER, Alia SWENSON Ot I48 .0 PAROXYSMAL ATRIAL FIBRILLATION 06/29/2019 GUILLE SCHAFER, Alia SWENSON Ot I49 .5 SICK SINUS SYNDROME 07/04/2019 GABE LEVY DO Ot G47. 33 OBSTRUCTIVE SLEEP APNEA (ADULT) (PEDIATR 07/06/2019 GABE LEVY DO Ot E78. 5 HYPERLIPIDEMIA, UNSPECIFIED 07/06/2019 GABE LEVY DO Ot G47. 33 OBSTRUCTIVE SLEEP APNEA (ADULT) (PEDIATR 07/06/2019 GABE LEVY DO Ot I10 ESSENTIAL (PRIMARY) HYPERTENSION 07/06/2019 GABE LEVY DO Ot I25. 10 ATHSCL HEART DISEASE OF [place] CORONARY 07/06/2019 GABE LEVY DO Ot I48. [...] Ot I25. 10 ATHSCL HEART DISEASE OF [place] CORONARY 07/07/2019 GABE LEVY DO Ot I48. 91 UNSPECIFIED ATRIAL FIBRILLATION 07/07/2019 GABE LEVY DO Ot J30. 9 ALLERGIC RHINITIS, UNSPECIFIED 07/07/2019 GABE LEVY DO Ot Z90. 49 ACQUIRED ABSENCE OF OTHER SPECIFIED PART 07/07/2019 GABE LEVY DO Ot Z90.710 ACQUIRED ABSENCE OF BOTH CERVIX AND UTER 08/14/2019 Alia HAN MD Ot E66 .9 OBESITY, UNSPECIFIED 08/14/2019 Alia HAN MD, Ot E78 .5 HYPERLIPIDEMIA, UNSPECIFIED 08/14/2019 Alia HAN MD, Ot G47.33 OBSTRUCTIVE SLEEP APNEA (ADULT) (PEDIATR 08/14/2019 Alia HAN MD, Ot I10 ESSENTIAL (PRIMARY) HYPERTENSION 08/14/2019 Alia HAN MD, Ot I25.10 ATHSCL HEART DISEASE OF [place] CORONARY 08/14/2019 Alia HAN MD, Ot I48 .0 PAROXYSMAL ATRIAL FIBRILLATION 08/14/2019 Alia HAN MD, Ot J44 .9 CHRONIC OBSTRUCTIVE PULMONARY DISEASE, U 08/14/2019 Alia HAN MD Ot R00 .1 BRADYCARDIA, UNSPECIFIED 08/14/2019 Alia HAN MD Ot Z68.41 BODY MASS INDEX (BMI) 40.0-44.9, ADULT 08/14/2019 Alia HAN MD, Ot Z79.01 RETAIL PLANNER (CURRENT) USE OF ANTICOAGULANT 08/14/2019 Alia HAN MD Ot Z87.891 PERSONAL HISTORY OF NICOTINE DEPENDENCE 08/14/2019 Alia HAN MD Ot Z95 .1 PRESENCE OF AORTOCORONARY BYPASS GRAFT 08/14/2019 Alia HAN MD Ot Z99.81 DEPENDENCE ON SUPPLEMENTAL OXYGEN 09/02/2019 MALIKA HARRIS Ot E78.00 PURE HYPERCHOLESTEROLEMIA, UNSPECIFIED 09/02/2019 KIMBERLYMALIKA CareyP Ot F32.9 MAJOR DEPRESSIVE DISORDER, SINGLE EPISOD 09/02/2019 KIMBERLYMALIKA CareyP Ot F41.9 ANXIETY DISORDER, UNSPECIFIED 09/02/2019 KIMBERLY, MALIKA CERTIFIED MEDICATION AIDE Ot G47.30 SLEEP APNEA, UNSPECIFIED 09/02/2019 KIMBERLY MALIKA CERTIFIED MEDICATION AIDE Ot I10 ESSENTIAL (PRIMARY) HYPERTENSION 09/02/2019 KIMBERLY, MALIKA CERTIFIED MEDICATION AIDE Ot I25.10 ATHSCL HEART DISEASE OF [place] CORONARY 09/02/2019 KIMBERLY, MALIKA CERTIFIED MEDICATION AIDE Ot I48.91 UNSPECIFIED ATRIAL FIBRILLATION 09/02/2019 KIMBERLY, MALIKA CERTIFIED MEDICATION AIDE Ot K21.9 GASTRO-ESOPHAGEAL REFLUX DISEASE WITHOUT 09/02/2019 KIMBERLY, MALIKA CERTIFIED MEDICATION AIDE Ot N39.0 URINARY TRACT INFECTION, SITE NOT SPECIF 09/02/2019 KIMBERLY, MALIKA CERTIFIED MEDICATION AIDE Ot R33.9 RETENTION OF URINE, UNSPECIFIED 09/02/2019 KIMBERLY, MALIKA CERTIFIED MEDICATION AIDE Ot Z79.01 RETAIL PLANNER (CURRENT) USE OF ANTICOAGULANT 09/02/2019 KIMBERLY, MALIKA CERTIFIED MEDICATION AIDE Ot Z79.51 [facility] (CURRENT) USE OF INHALED STERO 09/02/2019 KIMBERLY, MALIKA CERTIFIED MEDICATION AIDE Ot Z82.49 FAMILY HX OF ISCHEM HEART DIS AND OTH DI 09/02/2019 KIMBERLY, MALIKA CERTIFIED MEDICATION AIDE Ot Z87.891 PERSONAL HISTORY OF NICOTINE DEPENDENCE 09/02/2019 KIMBERLY, MALIKA CERTIFIED MEDICATION AIDE Ot Z88.0 ALLERGY STATUS TO PENICILLIN 09/02/2019 KIMBERLY, MALIKA CERTIFIED MEDICATION AIDE Ot Z91.041 RADIOGRAPHIC DYE ALLERGY STATUS 09/02/2019 KIMBERLY, MALIKA CERTIFIED MEDICATION AIDE Ot Z95.1 PRESENCE OF AORTOCORONARY BYPASS GRAFT 09/02/2019 KIMBERLY, MALIKA CERTIFIED MEDICATION AIDE Ot Z99.89 DEPENDENCE ON OTHER ENABLING MACHINES AN 09/06/2019 KIMBERLY, MALIKA CERTIFIED MEDICATION AIDE Ot E78.00 PURE HYPERCHOLESTEROLEMIA, UNSPECIFIED 09/06/2019 KIMBERLY, MALIKA CERTIFIED MEDICATION AIDE Ot F32.9 MAJOR DEPRESSIVE DISORDER, SINGLE EPISOD 09/06/2019 KIMBERLY, MALIKA CERTIFIED MEDICATION AIDE Ot F41.9 ANXIETY DISORDER, UNSPECIFIED 09/06/2019 KIMBERLY, MALIKA CERTIFIED MEDICATION AIDE Ot G47.30 SLEEP APNEA, UNSPECIFIED 09/06/2019 KIMBERLY, MALIKA CERTIFIED MEDICATION AIDE Ot I10 ESSENTIAL (PRIMARY) HYPERTENSION 09/06/2019 KIMBERLY, MALIKA CERTIFIED MEDICATION AIDE Ot I25.10 ATHSCL HEART DISEASE OF [place] CORONARY 09/06/2019 KIMBERLY, MALIKA CERTIFIED MEDICATION AIDE Ot I48.91 UNSPECIFIED ATRIAL FIBRILLATION 09/06/2019 KIMBERLY, MALIKA CERTIFIED MEDICATION AIDE Ot K21.9 GASTRO-ESOPHAGEAL REFLUX DISEASE WITHOUT 09/06/2019 KIMBERLY, MALIKA CERTIFIED MEDICATION AIDE Ot N39.0 URINARY TRACT INFECTION, SITE NOT SPECIF 09/06/2019 KIMBERLY, MALIKA CERTIFIED MEDICATION AIDE Ot R33.9 RETENTION OF URINE, UNSPECIFIED 09/06/2019 KIMBERLY, MALIKA CERTIFIED MEDICATION AIDE Ot Z79.01 RETAIL PLANNER (CURRENT) USE OF ANTICOAGULANT 09/06/2019 KIMBERLY, MALIKA CERTIFIED MEDICATION AIDE Ot Z79.51 RETAIL PLANNER (CURRENT) USE OF INHALED STERO 09/06/2019 KIMBERLY, MALIKA CERTIFIED MEDICATION AIDE Ot Z82.49 FAMILY HX OF ISCHEM HEART DIS AND OTH DI 09/06/2019 KIMBERLY, MALIKA CERTIFIED MEDICATION AIDE Ot Z87.891 PERSONAL HISTORY OF NICOTINE DEPENDENCE 09/06/2019 KIMBERLY, MALIKA CERTIFIED MEDICATION AIDE Ot Z88.0 ALLERGY STATUS TO PENICILLIN 09/06/2019 KIMBERLY, MALIKA CERTIFIED MEDICATION AIDE Ot Z91.041 RADIOGRAPHIC DYE ALLERGY STATUS 09/06/2019 KIMBERLY, MALIKA CERTIFIED MEDICATION AIDE Ot Z95.1 PRESENCE OF AORTOCORONARY BYPASS GRAFT 09/06/2019 KIMBERLY, MALIKA CERTIFIED MEDICATION AIDE Ot Z99.89 DEPENDENCE ON OTHER ENABLING MACHINES AN 09/09/2019 KIMBERLY, MALIKA CERTIFIED MEDICATION AIDE Ot E78.00 PURE HYPERCHOLESTEROLEMIA, UNSPECIFIED 09/09/2019 KIMBERLY, MALIKA CERTIFIED MEDICATION AIDE Ot F32.9 MAJOR DEPRESSIVE DISORDER, SINGLE EPISOD 09/09/2019 KIMBERLY, MALIKA CERTIFIED MEDICATION AIDE Ot F41.9 ANXIETY DISORDER, UNSPECIFIED 09/09/2019 KIMBERLY, MALIKA CERTIFIED MEDICATION AIDE Ot G47.30 SLEEP APNEA, UNSPECIFIED 09/09/2019 KIMBERLY, MALIKA CERTIFIED MEDICATION AIDE Ot I10 ESSENTIAL (PRIMARY) HYPERTENSION 09/09/2019 KIMBERLY, MALIKA CERTIFIED MEDICATION AIDE Ot I25.10 ATHSCL HEART DISEASE OF [place] CORONARY 09/09/2019 KIMBERLY, MALIKA CERTIFIED MEDICATION AIDE Ot I48.91 UNSPECIFIED ATRIAL FIBRILLATION 09/09/2019 KIMBERLY, MALIKA CERTIFIED MEDICATION AIDE Ot K21.9 GASTRO-ESOPHAGEAL REFLUX DISEASE WITHOUT 09/09/2019 KIMBERLY, MALIKA CERTIFIED MEDICATION AIDE Ot N39.0 URINARY TRACT INFECTION, SITE NOT SPECIF 09/09/2019 KIMBERLY, MALIKA CERTIFIED MEDICATION AIDE Ot R33.9 RETENTION OF URINE, UNSPECIFIED 09/09/2019 KIMBELRY, MALIKA CERTIFIED MEDICATION AIDE Ot Z79.01 RETAIL PLANNER (CURRENT) USE OF ANTICOAGULANT 09/09/2019 KIMBERLY, MALIKA CERTIFIED MEDICATION AIDE Ot Z79.51 RETAIL PLANNER (CURRENT) USE OF INHALED STERO 09/09/2019 KIMBERLY, MALIKA CERTIFIED MEDICATION AIDE Ot Z82.49 FAMILY HX OF ISCHEM HEART DIS AND OTH DI 09/09/2019 KIMBERLY, MALIKA CERTIFIED MEDICATION AIDE Ot Z87.891 PERSONAL HISTORY OF NICOTINE DEPENDENCE 09/09/2019 MALIKA HARRIS Ot Z88.0 ALLERGY STATUS TO PENICILLIN 09/09/2019 MALIKA HARRIS Ot Z91.041 RADIOGRAPHIC DYE ALLERGY STATUS 09/09/2019 MALIKA HARRIS Ot Z95.1 PRESENCE OF AORTOCORONARY BYPASS GRAFT 09/09/2019 MALIKA HARRIS Ot Z99.89 DEPENDENCE ON OTHER ENABLING MACHINES AN 09/22/2019 W E55.9 Maribell min D deficiency, unspecified Alis Gloria 09/22/2019 W I10 Essent ial (primary) hypertension Neymar Gloriaie 09/22/2019 W M54.5 Low back pain Neymar Gloriaie 09/22/2019 W Z86.79 Atr ial fibrillation, currently in sinus rhythm Juani Alis 09/29/2019 MOHSEN MORRIS MD Ot I48. 91 UNSPECIFIED ATRIAL FIBRILLATION 10/18/2019 MOHSEN MORRIS MD Ot I48. 91 UNSPECIFIED ATRIAL FIBRILLATION 11/26/2019 MOHSEN MORRIS MD Ot I48. 91 UNSPECIFIED ATRIAL FIBRILLATION 11/28/2019 MOHSEN MORRIS MD Ot I48. 91 UNSPECIFIED ATRIAL FIBRILLATION 11/28/2019 MARU TAVERAS Ot E78.2 MIXED HYPERLIPIDEMIA 11/28/2019 MARU TAVERAS Ot I10 ESSENTIAL (PRIMARY) HYPERTENSION 11/28/2019 MARU TAVERAS Ot I25.10 ATHSCL HEART DISEASE OF [place] CORONARY 11/28/2019 MARU TAVERAS Ot R07.89 OTHER [...] SCREENING FOR OTHER VIRAL 12/05/2019 IRIS EWING MD, Ot E66.0 1 MORBID (SEVERE) OBESITY DUE TO EXCESS CA 12/05/2019 IRIS EWING MD, Ot E78.5 HYPERLIPIDEMIA, UNSPECIFIED 12/05/2019 IRIS EWING MD, Ot F32.9 MAJOR DEPRESSIVE DISORDER, SINGLE EPISOD 12/05/2019 IRIS EWING MD, Ot G47.3 3 OBSTRUCTIVE SLEEP APNEA (ADULT) (PEDIATR 12/05/2019 IRIS EWING MD Ot I10 ESSENTIAL (PRIMARY) HYPERTENSION 12/05/2019 IRIS EWING MD, Ot I25.1 0 ATHSCL HEART DISEASE OF [place] CORONARY 12/05/2019 IRIS EWING MD, Ot I48.9 [...] 12/05/2019 IRIS EWING MD, Ot Z79.0 1 RETAIL PLANNER (CURRENT) USE OF ANTICOAGULANT 12/05/2019 IRIS EWING MD, Ot Z87.8 91 PERSONAL HISTORY OF NICOTINE DEPENDENCE 12/05/2019 IRIS EWING MD Ot Z88.0 ALLERGY STATUS TO PENICILLIN 12/05/2019 IRIS EWING MD, Ot Z88.1 ALLERGY STATUS TO OTHER ANTIBIOTIC AGENT 12/05/2019 IRIS EWING MD, Ot Z90.4 9 ACQUIRED ABSENCE OF OTHER SPECIFIED PART 12/05/2019 IRIS EWING MD, Ot Z90.7 10 ACQUIRED ABSENCE OF BOTH CERVIX AND UTER 12/05/2019 IRIS EWING MD, Ot Z91.0 41 RADIOGRAPHIC DYE ALLERGY STATUS 12/05/2019 IRIS EWING MD, Ot Z95.1 PRESENCE OF AORTOCORONARY BYPASS GRAFT 12/07/2019 IRIS EWING MD Ot E66.0 1 MORBID (SEVERE) OBESITY DUE TO EXCESS CA 12/07/2019 IRIS EWING MD, Ot E78.5 HYPERLIPIDEMIA, UNSPECIFIED 12/07/2019 IRIS EWING MD, Ot F32.9 MAJOR DEPRESSIVE DISORDER, SINGLE EPISOD 12/07/2019 IRIS EWING MD, Ot G47.3 3 OBSTRUCTIVE SLEEP APNEA (ADULT) (PEDIATR 12/07/2019 IRIS EWING MD, Ot I10 ESSENTIAL (PRIMARY) HYPERTENSION 12/07/2019 IRIS EWING MD, Ot I25.1 0 ATHSCL HEART DISEASE OF [place] CORONARY 12/07/2019 IRIS EWING MD, Ot I48.9 [...] 12/07/2019 IRIS EWING MD, Ot Z79.0 1 [facility] (CURRENT) USE OF ANTICOAGULANT 12/07/2019 IRIS EWING MD, Ot Z87.8 91 PERSONAL HISTORY OF NICOTINE DEPENDENCE 12/07/2019 IRIS EWING MD Ot Z88.0 ALLERGY STATUS TO PENICILLIN 12/07/2019 IRIS EWING MD, Ot Z88.1 ALLERGY STATUS TO OTHER ANTIBIOTIC AGENT 12/07/2019 IRIS EWING MD, Ot Z90.4 9 ACQUIRED ABSENCE OF OTHER [...] Ot I25.1 0 ATHSCL HEART DISEASE OF [place] CORONARY 12/07/2019 IRIS EWING MD, Ot I48.9 [...] 12/07/2019 IRIS EWING MD, Ot Z79.0 1 [facility] (CURRENT) USE OF ANTICOAGULANT 12/07/2019 IRIS EWING MD, Ot Z87.8 91 PERSONAL HISTORY OF NICOTINE DEPENDENCE 12/07/2019 IRIS EWING MD, Ot Z88.0 ALLERGY STATUS TO PENICILLIN 12/07/2019 IRIS EWING MD, Ot Z88.1 ALLERGY STATUS TO OTHER ANTIBIOTIC AGENT 12/07/2019 IRIS EWING MD, Ot Z90.4 9 ACQUIRED ABSENCE OF OTHER SPECIFIED PART 12/07/2019 IRIS EWING MD, Ot Z90.7 10 ACQUIRED ABSENCE OF BOTH CERVIX AND UTER 12/07/2019 IRIS EWING MD, Ot Z91.0 41 RADIOGRAPHIC DYE ALLERGY STATUS 12/07/2019 IRIS EWING MD, Ot Z95.1 PRESENCE OF AORTOCORONARY BYPASS GRAFT 01/02/2020 W I10 Essent ial (primary) hypertension Gloria, Alis 01/02/2020 W M54.2 Neck pain Gloria, Alis 01/02/2020 W M54.5 Low back pain Gloria, Alis 01/02/2020 W R49.0 Hoar seness Gloria, Alis 01/03/2020 W I10 Essent ial (primary) hypertension Gloria, Alis 01/03/2020 W M54.2 Neck pain Gloria, Alis 01/03/2020 W M54.5 Low back pain Gloria, Alis 01/03/2020 W R49.0 Hoar seness Gloria, Alis 01/16/2020 W E55.9 Maribell min D deficiency, unspecified Gloria, Alis 01/16/2020 W I10 Essent ial (primary) hypertension Gloria, Alis 01/16/2020 W I48.0 Paro xysmal atrial fibrillation Gloria, Alis 01/16/2020 W 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, unspecified Gloria, Alis 01/17/2020 W D64.9 Anem ia, unspecified Gloria, Alis 01/19/2020 W E55.9 Maribell min D deficiency, unspecified Gloria, Alis 01/19/2020 W I10 Essent ial (primary) hypertension Juani 01/19/2020 W I48.0 Paro xysmal atrial fibrillation Gloria, Alis 01/19/2020 W 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, unspecified Gloria, Alis 01/19/2020 W D64.9 Anem ia, unspecified Gloria, Alis 01/23/2020 SHEILA NARAYANAN APRN Ot E78.00 PURE HYPERCHOLESTEROLEMIA, UNSPECIFIED 01/23/2020 SHEILA NARAYANAN APRN Ot F32 .9 MAJOR DEPRESSIVE DISORDER, SINGLE EPISOD 01/23/2020 SHEILA NARAYANAN APRN Ot F41 .9 ANXIETY DISORDER, UNSPECIFIED 01/23/2020 SHEILA NARAYANAN APRN Ot I10 ESSENTIAL (PRIMARY) HYPERTENSION 01/23/2020 SHEILA NARAYANAN APRN Ot I25.10 ATHSCL HEART DISEASE OF [place] CORONARY 01/23/2020 SHEILA NARAYANAN APRN Ot I48.91 UNSPECIFIED ATRIAL FIBRILLATION 01/23/2020 SHEILA NARAYANAN APRN Ot J44 .9 CHRONIC OBSTRUCTIVE PULMONARY DISEASE, U 01/23/2020 SHEILA NARAYANAN APRN Ot K21 .9 GASTRO-ESOPHAGEAL REFLUX DISEASE WITHOUT 01/23/2020 SHEILA NARAYANAN APRN Ot M19.90 UNSPECIFIED OSTEOARTHRITIS, UNSPECIFIED 01/23/2020 SHEILA NARAYANAN APRN Ot M54 .9 DORSALGIA, UNSPECIFIED 01/23/2020 SHEILA NARAYANAN APRN Ot Z79.01 [facility] (CURRENT) USE OF ANTICOAGULANT 01/23/2020 SHEILA NARAYANAN APRN Ot Z79.899 OTHER RETAIL PLANNER (CURRENT) DRUG THERAPY 01/23/2020 SHEILA NARAYANAN APRN Ot Z95 .1 PRESENCE OF AORTOCORONARY BYPASS GRAFT 01/30/2020 W I10 Essent ial (primary) hypertension [place]MichaelAlis 01/30/2020 W Z86.79 Atr ial fibrillation, currently in sinus rhythm [place]MichaelAlis 01/30/2020 W I10 Essent ial (primary) hypertension GloriaMichaelAlis 01/30/2020 W Z86.79 Atr ial fibrillation, currently in sinus rhythm Gloria Alis 01/30/2020 SHEILA NARAYANAN APRN Ot E78.00 PURE HYPERCHOLESTEROLEMIA, UNSPECIFIED 01/30/2020 SHEILA NARAYANAN APRN Ot F32 .9 MAJOR DEPRESSIVE DISORDER, SINGLE EPISOD 01/30/2020 SHEILA NARAYANAN APRN Ot F41 .9 ANXIETY DISORDER, UNSPECIFIED 01/30/2020 SHEILA NARAYANAN APRN Ot I10 ESSENTIAL (PRIMARY) HYPERTENSION 01/30/2020 SHEILA NARAYANAN APRN Ot I25.10 ATHSCL HEART DISEASE OF [place] CORONARY 01/30/2020 SHEILA NARAYANAN APRN Ot I48.91 UNSPECIFIED ATRIAL FIBRILLATION 01/30/2020 SHEILA NARAYANAN APRN Ot J44 .9 CHRONIC OBSTRUCTIVE PULMONARY DISEASE, U 01/30/2020 SHEILA NARAYANAN APRN Ot K21 .9 GASTRO-ESOPHAGEAL REFLUX DISEASE WITHOUT 01/30/2020 SHEILA NARAYANAN APRN Ot M19.90 UNSPECIFIED OSTEOARTHRITIS, UNSPECIFIED 01/30/2020 SHEILA NARAYANAN APRN Ot M54 .9 DORSALGIA, UNSPECIFIED 01/30/2020 SHEILA NARAYANAN APRN Ot Z79.01 [facility] (CURRENT) USE OF ANTICOAGULANT 01/30/2020 SHEILA NARAYANAN APRN Ot Z79.899 OTHER RETAIL PLANNER (CURRENT) DRUG THERAPY 01/30/2020 SHEILA NARAYANAN APRN Ot Z95 .1 PRESENCE OF AORTOCORONARY BYPASS GRAFT 02/01/2020 SHEILA NARAYANAN APRN Ot E78.00 PURE HYPERCHOLESTEROLEMIA, UNSPECIFIED 02/01/2020 SHEILA NARAYANAN APRN Ot F32 .9 MAJOR DEPRESSIVE DISORDER, SINGLE EPISOD 02/01/2020 SHEILA NARAYANAN APRN Ot F41 .9 ANXIETY DISORDER, UNSPECIFIED 02/01/2020 SHEILA NARAYANAN APRN Ot I10 ESSENTIAL (PRIMARY) HYPERTENSION 02/01/2020 SHEILA NARAYANAN APRN Ot I25.10 ATHSCL HEART DISEASE OF [place] CORONARY 02/01/2020 SHEILA NARAYANAN APRN Ot I48.91 UNSPECIFIED ATRIAL FIBRILLATION 02/01/2020 SHEILA NARAYANAN APRN Ot J44 .9 CHRONIC OBSTRUCTIVE PULMONARY DISEASE, U 02/01/2020 SHEILA NARAYANAN APRN Ot K21 .9 GASTRO-ESOPHAGEAL REFLUX DISEASE WITHOUT 02/01/2020 SHEILA NARAYANAN APRN Ot M19.90 UNSPECIFIED OSTEOARTHRITIS, UNSPECIFIED 02/01/2020 SHEILA NARAYANAN APRN Ot M54 .9 DORSALGIA, UNSPECIFIED 02/01/2020 SHEILA NARAYANAN APRN Ot Z79.01 [facility] (CURRENT) USE OF ANTICOAGULANT 02/01/2020 SHEILA NARAYANAN APRN Ot Z79.899 OTHER [facility] (CURRENT) DRUG THERAPY 02/01/2020 SHEILA NARAYANAN APRN Ot Z95 .1 PRESENCE OF AORTOCORONARY BYPASS GRAFT 02/12/2020 Alia HAN MD Ot Z01.812 ENCOUNTER FOR PREPROCEDURAL LABORATORY E 02/12/2020 Alia HAN MD Ot Z20.828 CONTACT W AND EXPOSURE TO OTH VIRAL COMM 02/13/2020 Alia HAN MD Ot Z01.812 ENCOUNTER FOR PREPROCEDURAL LABORATORY E 02/13/2020 Alia HAN MD Ot Z20.828 CONTACT W AND EXPOSURE TO OTH VIRAL COMM 02/14/2020 ALIS GLORIA Ot D50.9 IRON DEFICIENCY ANEMIA, UNSPECIFIED 02/19/2020 JUANI ALISNILTON POMPA Ot D50.9 IRON DEFICIENCY ANEMIA, UNSPECIFIED 02/28/2020 GUILLE SCHAFER, Alia SWENSON Ot Z01.812 ENCOUNTER FOR PREPROCEDURAL LABORATORY E 02/28/2020 Alia HAN MD, Ot Z20.828 CONTACT W AND EXPOSURE TO OTH VIRAL COMM Procedures Code Description Performed By Per formed On [id number] RE STORATION OF CARDIAC RHYTHM, SINGLE 11/10/2017 [id number] RE STORATION OF CARDIAC RHYTHM, SINGLE 04/03/2018 [...] 03/23/18 06:57 Bacterial urine culture SEE COMMEN NR COLONY COUNT . NR Complete blood count (CBC) with automate d [...] culture - 02/19/19 13:24 Bacterial urine culture [id number] NRG COLONY COUNT >100,000/ML NRG FTX;REPORTABLE SUSCEPTIBILITY REPORTED 02-21-19, 12 05. NRG Dirithromycin susceptibility test by [...] culture - 09/02/19 18:00 Bacterial urine culture [id number] NRG COLONY COUNT <10,000 NRG FREE TEXT ENTRY 2 PRELIM RAPID ID TEST AT [facility] 09/03 9:15 NRG Complete blood count (CBC) [...] CORRECTED 9.1 mg/dL 8.5-10.1 Coronavirus SARS-CoV-2 SO 2019 - 0 12:56 Coronavirus Ab [Units/volume] in [...] 01/23/20 12:02 BNP PT 223.9 pg/mL <100.0 Coronavirus SARS-CoV-2 SO 2018 0 08:00 Coronavirus Ab [Units/volume] in Serum Negative Negative Coronavirus SARS-CoV-2 SO 2018 0 07:38 Coronavirus Ab [Units/volume] in Serum NOT DETECTE D Not Detecte Encounters ACCT No. Visit Date/Time Discharge Status Pt. Type Provider Facility Loc./Unit Complaint [id number] 02/03/2017 10:27:23 02/03/2017 23:59:5 9 CLS Outpatient [id number] 08/03/2018 00:00:00 08/03/2018 23:59: 00 DIS Outpatient STEFFI BIBIANA [id number] 02/19/2020 13:06:00 14:17:00 [facility] ANEMIA [id number] 02/08/2020 08:30:00 23:59:59 CLS Preadmit Alia HAN MD Via [facility] CATH AFIB. [id number] 02/05/2020 06:44:00 23:59:59 CLS Outpatient Alia HAN MD Via [facility] LABNPT [id number] 01/23/2020 11:55:00 14:10:00 DIS Emergency NARAYANANSHEILA APRN Via [facility] ER AFIB [id number] 12/05/2019 06:26:00 10:15:00 DIS Outpatient IRIS EWING MD Via [facility] SDC INCONTENENCE [id number] 12/01/2019 06:33:00 15:46:00 DIS Outpatient IRIS EWING MD [facility] PREOP BOTOX INJECTION [id number] 08/28/2019 09:16:00 00:01:00 DIS Outpatient MOHSEN MORRIS MD Via [facility] LAB I48.0 [id number] 09/02/2019 17:03:00 20:16:00 DIS Emergency MALIKA HARRIS Via [facility] ER UNABLE TO URINATE [id number] 08/14/2019 10:00:00 16:55:00 DIS Inpatient Alia HAN MD Via [facility] CSD SOTALOL LOADING [id number] 07/05/2019 19:07:00 07:03:00 DIS Outpatient GABE LEVY DO Via [facility] SLEEP MAGALY [id number] 06/29/2019 00:09:00 23:59:59 CLS Preadmit Alia HAN MD Via [facility] CARD AFIB [id number] 03/30/2019 08:40:00 00:01:00 DIS Outpatient Alia HAN MD [facility] CARD AFIB [id number] 2019 10:01:00 23:59:59 CLS Outpatient ALFRED OWENS APRN [facility] RAD COPD [id number] 05/29/2019 07:51:00 23:59:59 CLS Outpatient ALFRED OWENS APRN Via [facility] RT DYSPNEA [id number] 05/04/2019 07:56:00 23:59:59 CLS Outpatient Alia HAN MD [facility] CATH RETAIL PLANNER SURVEILLANCE OF PAF [id number] 01/12/2019 10:27:00 00:01:00 DIS Outpatient MOHSEN MORRIS MD Via [facility] LAB I48.0 [id number] 03/09/2019 14:12:00 23:59:59 CLS Outpatient ALIS GLORIAP Via [facility] RAD R KNEE PAIN [id number] 02/19/2019 11:51:00 13:59:00 DIS Emergency MALIKA HARRIS CERTIFIED MEDICATION AIDE [facility] ER SWELLING IN BOTH LEGS [id number] 01/25/2019 07:34:00 23:59:59 CLS Outpatient AGUSTIN HOWELL APRN Via [facility] RAD SEVERE LOW BACK PAIN,H X OF FX [id number] 01/17/2019 12:16:00 23:59:59 CLS Outpatient MOHSEN MORRIS MD Via [facility] RAD CHEST X-RAY [id number] 01/12/2019 10:23:00 23:59:59 CLS Outpatient ALIS GLORIA CERTIFIED MEDICATION AIDE Via [facility] RAD LOW BACK PAIN [id number] 09/12/2018 10:25:00 00:01:00 DIS Outpatient MOHSEN MORRIS MD Via [facility] LAB I48.0 [id number] 10/25/2018 10:45:00 23:59:59 CLS Outpatient ALIS GLORIAP Via [facility] CARD CHEST PAIN [id number] 10/11/2018 09:39:00 12:45:00 DIS Emergency TARIQ SCHAFER, JOSE Santana [facility] ER CHEST PAIN [id number] 09/20/2018 11:46:00 23:59:59 CLS Outpatient MOHSEN MORRIS MD Via [facility] LAB ARTIAL FIB [id number] 08/12/2018 09:30:00 23:59:59 CLS Preadmit ALIS GLORIA CERTIFIED MEDICATION AIDE Via [facility] RAD COMPRESSION FX L1 L3 L4, BACK PAIN [id number] 08/10/2018 12:38:00 23:59:59 CLS Outpatient MOHSEN MORRIS MD Via [facility] CARD CAD,CHEST PAIN SYNDROME,HTN,HYPERLIPIDEMIA,MAGALY [id number] 08/01/2018 11:24:00 23:59:59 CLS Outpatient ALIS GLORIA CERTIFIED MEDICATION AIDE Via [facility] RAD LOW BACK PAIN [id number] 04/25/2018 00:44:00 23:59:59 CLS Preadmit MARU TAVERAS Via [facility] CARD ANTERIOR CHEST WALL PAIN,CAD,HTN [id number] 04/02/2018 10:53:00 14:10:00 DIS Inpatient JAIR GONSALES DO, V ia [facility] ICU A-FIB,LABILE BLODD PRES SURE [id number] 03/14/2018 07:43:00 00:01:00 DIS Outpatient NADYA TAVERAS Via [facility] CARD ANTERIOR CH EST WALL PAIN,CAD,HTN [id number] 03/23/2018 06:32:00 018 13:10:00 DIS Outpatient MOHSEN MORRIS MD Via [facility] CATH ABN STRESS,CAD,SOB,HTN [id number] 02/15/2018 10:44:00 23:59:59 CLS Outpatient MARINA MARTINEZ MD Via [facility] SLEEP MAGALY [id number] 12/03/2017 21:02:00 018 07:00:00 DIS Outpatient BRODIE, RAFFY Margo PATIENT SERVICE REPRESENTATIVE Via [facility] SLEEP MAGALY G47.33 [id number] 11/08/2017 07:49:00 018 08:55:00 DIS Inpatient MOHSEN MORRIS MD Via [facility] ICU AFIB [id number] 10/27/2017 14:49:00 018 17:19:00 DIS Emergency PREMA MALIK MD Via [facility] ER SOB [id number] 09/01/2017 13:29:00 018 23:59:59 CLS Outpatient MOHSEN MORRIS MD Via [facility] RAD I48.0 ATRIAL FIBRILLATI ON [id number] 08/25/2017 22:21:00 018 04:31:00 DIS Emergency CASIMIRO DO, ROSIE K Vi a [facility] ER SOA,IRREG HEART RATE [id number] 04/28/2017 07:11:00 017 11:30:00 DIS Outpatient MOHSEN MORRIS MD Via [facility] CATH AFIB, HTN, [id number] 04/20/2017 14:04:00 017 15:51:00 DIS Emergency SHEILA NARAYANAN CIRCLE EDGER Via [facility] ER A-FIB/SOB [id number] 03/10/2017 07:06:00 017 11:20:00 DIS Outpatient MOHSEN MORRIS MD Via [facility] CATH AFIB,DYSPNEA,CAD,HTN [id number] 02/10/2017 12:31:00 017 23:59:59 CLS Outpatient NADYA TAVERAS Via [facility] LAB I25.10 I10 E78.2 [id number] 02/08/2017 09:04:00 017 23:59:59 CLS Outpatient NADYA TAVERAS Via [facility] CARD CAD I25.10 [id number] 02/02/2017 10:53:00 017 23:59:59 CLS Outpatient BIBIANA KAPADIA MD Via [facility] CARD IRREGULAR RHYTHM,FATIG UE [id number] 09/28/2016 10:09:00 017 23:59:59 CLS Outpatient NADYA TAVERAS Via [facility] LAB CAD,HTN,HLP ,MAGALY [id number] 09/07/2016 13:46:00 017 23:59:59 CLS Outpatient AGUSTIN HOWELL CIRCLE EDGER Via [facility] RAD POPLITEAL PAIN,CALF PA IN,KNEE PAIN [id number] 08/25/2016 11:46:00 017 11:30:00 DIS Outpatient MOHSEN MORRIS MD Via [facility] CATH CHEST PAIN [id number] 08/01/2016 11:52:00 017 14:24:00 DIS Emergency DEMETRIS SCHAFER, RICK Alaniz Via [facility] ER CP/SOA [id number] 02/24/2016 07:38:00 016 23:59:59 CLS Outpatient NADYA TAVERAS Via [facility] CARD ANEURYSM OF AA,CAD,CHEST PAIN,HTN [id number] 02/07/2016 11:35:00 016 23:59:59 CLS Outpatient NADYA TAVERAS Via [facility] CARD ANEURYSM OF AA CAD,CHEST PAIN,HTN [id number] 02/04/2016 08:28:00 016 23:59:59 CLS Outpatient NADYA TAVERAS Via [facility] RAD ANEURYSM OF AA, CAD, CHEST PAIN, HTN [id number] 10/13/2015 13:57:00 016 15:56:00 DIS Emergency SHEILA NARAYANAN CIRCLE EDGER Via [facility] ER BOTH LEGS AND FEET SWEL LING/SOB [id number] 01/24/2015 09:26:00 015 23:59:59 CLS Outpatient MOHSEN MORRIS MD Via [facility] RAD CAD,DYSPNEA,HTN,HLP [id number] 11/01/2014 09:51:00 015 23:59:59 CLS Outpatient EDD VALLE MD Via [facility] RAD COMPRESSION FRA CTURE [id number] 10/16/2014 14:29:00 015 23:59:59 CLS Outpatient PAMELA JOSHI MD Via [facility] RAD LUMBAGO [id number] 12/11/2013 07:28:00 014 23:59:59 CLS Outpatient NADYA TAVERAS Via [facility] CARD CAD,HTN,HLP [id number] 10/19/2013 08:29:00 014 23:59:59 CLS Outpatient EDD VALLE MD Via [facility] RAD F/U AAA [id number] 10/10/2013 19:47:00 014 06:45:00 DIS Outpatient EDD VALLE MD Via [facility] SLEEP ISCHEMIC HEART DISEASE,HTN [id number] 09/27/2013 11:56:00 014 23:59:59 CLS Outpatient EDD VALLE MD Via [facility] RT SOB [id number] 09/18/2013 09:59:00 014 23:59:59 CLS Outpatient EDD VALLE MD Via [facility] RAD SOB [id number] 04/06/2013 06:44:00 013 08:10:00 DIS Emergency JOSE POTTER MD Via [facility] ER GENERAL PAIN [id number] 04/02/2013 09:07:00 11:10:00 DIS Emergency BISI WILBURN MD Via [facility] ER LOWER BACK PAIN R LEG P AIN [id number] 03/10/2013 09:44:00 23:59:59 CLS Outpatient EDD VALLE MD [facility] RAD SCREENING [id number] 12/06/2012 08:37:00 013 09:39:00 DIS Outpatient TORI SCHAFER, EDD Rojo Via [facility] REHAB BACK PAIN [id number] 02/29/2020 08:30:00 P EN Preadmit Alia HAN MD Via [facility] SDC AFIB [id number] 02/26/2020 06:54:[address] Outpatient Alia HAN MD Via [facility] LABNPT [id number] 11/27/2019 00:00:00 Document Registration [id number] 03/14/2018 07:46:00 Document Registration [id number] 10/11/2014 07:57:00 Document Registration [id number] 10/08/2014 15:44:00 Document Registration [id number] 09/07/2012 07:43:00 Document Registration [id number] 08/31/2012 11:34:00 Document Registration [id number] 07/22/2012 09:57:00 Document Registration [id number] 07/20/2012 12:14:00 Document Registration [id number] 06/08/2012 10:26:00 Document Registration [id number] 04/08/2012 08:18:00 Document Registration [id number] 03/23/2012 08:00:00 Document Registration [id number] 01/13/2012 10:47:00 Document Registration [id number] 12/13/2011 06:12:00 Document Registration [id number] 12/09/2011 16:25:00 Document Registration [id number] 10/20/2011 08:25:00 Document Registration [id number] 07/29/2011 09:58:00 Document Registration [id number] 07/27/2011 09:14:00 Document Registration [id number] 06/24/2011 07:06:00 Document Registration [id number] 06/09/2011 10:50:00 Document Registration
[2020-02-29] MEDS ORDERED: ENOXAPARIN 100 MG/1 ML (LOVENOX) SYR SC ONE (10:00)
[2020-02-29] MEDS ORDERED: WARF6TAB49 PO (10:18)
[2020-02-29] MEDS ORDERED: ENOXAPARIN 100 MG/1 ML (LOVENOX) SYR ONE (10:22)
--- NOTE | 2020-02-29 12:15 | Anesthesia-General Post-Op ---
MAC Patient Condition Mental Status/LOC: Same as Preop Cardiovascular: Satisfactory Nausea/Vomiting: Absent Respiratory: Satisfactory Pain: Controlled Complications: Absent Post Op Complications Complications None Follow Up Care/Instructions Patient Instructions None needed. Anesthesiology Discharge Order Discharge Order Patient is doing well, no complaints, stable vital signs, no apparent adverse anesthesia problems. No complications reported per nursing. SANDRA ISLAS CRNA Feb 29, 2020 12:15
--- NOTE | 2020-02-29 12:29 | Cardioversion ---
Cardioversion PROCEDURE PHYSICIAN: Saray Chauhan MD DATE OF PROCEDURE: 02/29/20 DIRECT EXTERNAL ELECTRICAL CARDIOVERSION: Indications: Atrial Fibrillation with controlled ventricular rate Preoperative diagnoses: Atrial Fibrillation with controlled ventricular rate Postoperative diagnosis: Sinus rhythm, Successful Electrical Cardioversion History: 74-year-old lady with persistent atrial fibrillation on Coumadin. This morning INR was 1.5. Anesthesia: By Anesthesia services Complications: None Specimen: None Contrast: 0 Flouroscopy: none Procedure Details: The patient was brought the curb and gutter laborer after informed consent was taken, all the risks and complications were explained including the risk of stroke. Transesophageal echocardiogram was done which showed moderate mitral regurgitation with no thrombus in the left atrium and left atrial appendage. Electrical cardioversion was carried out with anesthesia support with propofol. 200 joules of synchronized shock was delivered through external patches which promptly restored sinus rhythm. The patient tolerated the procedure well. Conclusions: 1.Successful Cardioversion. 2.Continue oral anticoagulation and rate controlling agent. 3.since INR was 1.5, full dose Lovenox once was given. We will inform Dr. Tinoco of the subtherapeutic INR. Saray Chauhan MD, [facility] Cardiac Electrophysiology Alia CHAUHAN MD Feb 29, 2020 12:29
== END 2020-02-29 11:01 | disposition home or self-care (01) ==
LOC: SDC 07:56
PROVIDERS: ATTEND Internal Medicine Interventional Cardiology
DX: I48.91 Unspecified atrial fibrillation (principal); I10 Essential (primary) hypertension; I25.10 Atherosclerotic heart disease of native coronary artery without angina pectoris; J44.9 Chronic obstructive pulmonary disease, unspecified; G47.33 Obstructive sleep apnea (adult) (pediatric); F17.210 Nicotine dependence, cigarettes, uncomplicated; Z79.899 Other long term (current) drug therapy; Z88.0 Allergy status to penicillin; Z91.041 Radiographic dye allergy status
CPT/HCPCS: 36415; 85610; 92960; 93005; 93312; 93320; 93325

== ENCOUNTER 2020-03-28 11:09 | Day surgery (SDC) | payer MEDICARE, OTHER ==
[2020-03-28] VITALS (7 sets, daily range): BP systolic 141–151; BP diastolic 73–95
[~2020-03-28] VITALS: Ht 170 cm; Wt 117.0 kg
[~2020-03-28 11:09] MED LIST changes: +ASPI-1238 PO; -ASPI-983 PO; +LACT1CAP62 PO; -PANT40TA3 PO; +PANT40TA52 PO; +WARF4TAB3 PO; -WARF4TAB70 PO; +WARF6TAB49 PO
[2020-03-28] MEDS ORDERED: NS IV 1000 ML 1,000 ML ONE (11:52)
[2020-03-28] MEDS ORDERED: NS IV 1000 ML 1,000 ML IV SCH ×2 (12:00→12:30)
[2020-03-28] MEDS ORDERED: proPOfol 200 MG/20 ML (DIPRIVAN) VIAL IV ONE ×2 (12:24→12:55)
[2020-03-28] MEDS ORDERED: MIDAZOLAM 2 MG/2 ML (VERSED) VIAL ONE (12:24)
[2020-03-28 12:36] LABS: INR 2.5 (0.8-1.4); PROTHROMBIN TIME PATIENT 27.2 SEC (12.2-14.7)
[2020-03-28] MEDS ORDERED: HURRICAINE EXT TUBE (BENZOCAINE) ONE (12:59)
--- NOTE | 2020-03-28 14:13 | Cardioversion ---
Cardioversion PROCEDURE PHYSICIAN: Saray Chauhan MD DATE OF PROCEDURE: 03/28/20 DIRECT EXTERNAL ELECTRICAL CARDIOVERSION: Indications: Atrial Fibrillation Preoperative diagnoses: Atrial Fibrillation Postoperative diagnosis: Sinus rhythm, Successful Electrical Cardioversion History: persistent atrial fibrillation. 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 transesophageal echocardiogram did not show any left atrial or left atrial appendage thrombus.Electrical cardioversion was carried out with anesthesia support with propofol. 200 joules of synchronized shock was delivered through external patches which promptly restored sinus rhythm. The patient tolerated the procedure well. Conclusions: 1.Successful Cardioversion. 2.Continue oral anticoagulation and rate controlling agent. 3.Follow up in office in 7-14 days. Saary Chauhan MD, [facility] Cardiac Electrophysiology Alia CHAUHAN MD Mar 28, 2020 14:13
--- NOTE | 2020-03-28 14:18 | NUR ---
dc'd iv, catheter intact, drsg applied. pt taken out in wheel chair
--- NOTE | 2020-03-28 15:41 | Anesthesia-General Post-Op ---
MAC Patient Condition Mental Status/LOC: Same as Preop Cardiovascular: Satisfactory Nausea/Vomiting: Absent Respiratory: Satisfactory Pain: Controlled Complications: Absent Post Op Complications Complications None Follow Up Care/Instructions Patient Instructions None needed. Anesthesiology Discharge Order Discharge Order Patient was seen after the procedure and she was doing well, no complaints, stable vital signs, no apparent adverse anesthesia problems. ODILIA ARAUZ DO Mar 28, 2020 15:41
== END 2020-03-28 14:30 ==
LOC: CATH 11:09
PROVIDERS: ATTEND Internal Medicine Interventional Cardiology
DX: I48.91 Unspecified atrial fibrillation (principal); I10 Essential (primary) hypertension; I25.10 Atherosclerotic heart disease of native coronary artery without angina pectoris; G47.33 Obstructive sleep apnea (adult) (pediatric); J44.9 Chronic obstructive pulmonary disease, unspecified; I34.0 Nonrheumatic mitral (valve) insufficiency; E66.01 Morbid (severe) obesity due to excess calories; Z68.41 Body mass index [BMI] 40.0-44.9, adult; Z79.899 Other long term (current) drug therapy; Z91.041 Radiographic dye allergy status; Z88.0 Allergy status to penicillin
CPT/HCPCS: 36415; 85610; 85730; 92960; 93005; 93312; 93320; 93325

== ENCOUNTER → 2020-05-22 | Outpatient (CLI) | payer MEDICARE, OTHER ==
[~2020-05-22] VITALS: Ht 170 cm; Wt 115.0 kg
[~2020-05-22] MED LIST changes: -AMIO200T4 PO; +AMIO200T6 PO; +AMLO-250 PO; -AMLO5TAB9 PO; +CATHETER FLUSH 10 ML SYR IV PRN; +REGADENOSON 0.4 MG/5 ML SYR (LEXISCAN) IV ONE
[2020-05-22 09:24] VITALS: BP 162/74
--- NOTE | 2020-05-22 11:15 | Cardiology Stress Test Report ---
Stress Test Report Date of Procedure/Referring: Date of Procedure: May 22, 2020 PCP Cristina Pina Admitting Physician Scarlett Spring MD Indications: Coronary artery disease Baseline Heart Rate: 59 Baseline Blood Pressure: Blood Pressure Systolic: 162 Blood Pressure Diastolic: 74 Baseline Vitals Vital Signs Date Time Temp Pulse Resp B/P (MAP) Pulse Ox O2 Delivery O2 Flow Rate FiO2 05/22/20 09:24 61 18 162/74 (103) 97 Room Air Baseline EKG: Baseline EKG: normal sinus rhythm Summary After explaining the procedure to the patient, she signed a consent and then brought to the stress nuclear laboratory. Patient received 0.4 mg Lexiscan for stress test, ECG, heart rate and blood pressure were monitored continuously. Resting and stress dose of radio tracer were injected, imaging was acquired and reviewed in short axis, horizontal long axis and vertical long axis views. TID: 1.1 SSS: 4 SDS: 1 EF: 64 1. Patient tolerated Lexiscan well 2. Affecting extracardiac attenuation affecting the quality of the images with fixed defect at the mid to apical inferior wall, no significant ischemia or infarction was noted 3. Normal left ventricular size, normal contractility, EF 64 percent MOHSEN MORRIS MD May 22, 2020 11:15
== END ==
LOC: CARD 08:00
PROVIDERS: ATTEND Physician Assistant
DX: I25.10 Atherosclerotic heart disease of native coronary artery without angina pectoris (principal); I10 Essential (primary) hypertension; G47.33 Obstructive sleep apnea (adult) (pediatric)
CPT/HCPCS: 78452; 93017; A9502

== ENCOUNTER 2020-12-01 01:23 | Emergency (ER) | payer MEDICARE, OTHER ==
[~2020-12-01] VITALS: Ht 167.7 cm; Wt 118.8 kg
[~2020-12-01 01:23] MED LIST changes: -CATHETER FLUSH 10 ML SYR IV PRN; -CIPR500T4 PO; +CIPR500T5 PO; -ISOS30TA3 PO; +ISOS30TA82 PO; -REGADENOSON 0.4 MG/5 ML SYR (LEXISCAN) IV ONE; -TERA5CAP3 PO
--- NOTE | 2020-12-01 01:38 | ED GI ---
General Chief Complaint: Abdominal/GI Problems Stated Complaint: VOMITING/DIARRHEA Source of Information: Patient Exam Limitations: No Limitations History of Present Illness Date Seen by Provider: December 01, 2020 Time Seen by Provider: 01:20 Initial Comments Patient presents to the ER by EMS from home with chief complaint about 9:00, 4 hours prior to arrival she started having nausea vomiting and diarrhea. She says she went to eat at [employer] last night with her daughter who had the same thing the moderate check in and was not having any symptoms. T patient states she does not have anything for nausea at home. She is not having any fevers or chills. No blood in the emesis or diarrhea. She has had hysterectomy, appendectomy, gallbladder, hernia repair. Allergies and Home Medications Allergies Coded Allergies: Iodinated Contrast Media (Unverified Allergy, Mild, NAUSEA, 11/28/19) Pt states it's the IV dye used in heart tests not CT scans penicillin G (Verified Allergy, Mild, RASH, 11/28/19) RASH Home Medications Amlodipine Besylate 5 Mg Tablet, 5 MG PO DAILY, (Reported) Atorvastatin Calcium 40 Mg Tablet, 40 MG PO DAILY, (Reported) Cholecalciferol (Vitamin D3) 50 Mcg Capsule, 50 MCG PO DAILY, (Reported) Fluticasone/Salmeterol 1 Each Blst.w.dev, 1 EACH IH BID, (Reported) Furosemide 20 Mg Tablet, 20 MG PO BID, (Reported) Gabapentin 100 Mg Capsule, 200 MG PO TID, (Reported) Lactobacillus Acidophilus 1 Each Capsule, 1 EACH PO DAILY, (Reported) Omeprazole 20 Mg Capsule.dr, 20 MG PO HS, (Reported) Oxybutynin Chloride 10 Mg Tab.er.24, 10 MG PO DAILY, (Reported) Paroxetine HCl 40 Mg Tablet, 40 MG PO DAILY, (Reported) Potassium Chloride 10 Meq Tab.er.prt, 10 MEQ PO DAILY, (Reported) Terazosin HCl 5 Mg Capsule, 5 MG PO DAILY, (Reported) Trazodone HCl 50 Mg Tablet, 50 MG PO DAILY, (Reported) Valsartan 160 Mg Tablet, 160 MG PO DAILY, (Reported) Zolpidem Tartrate 10 Mg Tablet, 10 MG PO HS, (Reported) Patient Home Medication List Home Medication List Reviewed: Yes Review of Systems Review of Systems Constitutional: No chills, No diaphoresis EENTM: No Blurred Vision, No Double Vision Respiratory: Denies Cough, Denies Shortness of Air Cardiovascular: Denies Chest Pain, Denies Lightheadedness Gastrointestinal: Abdominal Pain; Denies Constipated, Denies Diarrhea; Nausea, Vomiting Musculoskeletal: No back pain, No joint pain All Other Systems Reviewed Negative Unless Noted: Yes Past Zhtemdf-Bwbsyt-Zhvpgi Hx Patient Social History Alcohol Use: Denies Use Smoking Status: Former Smoker Type Used: Cigarettes Former Smoker, Quit: Aug 14, 1990 2nd Hand Smoke Exposure: No Recent Hopitalizations: No Immunizations Up To Date Tetanus Booster (TDap): Unknown PED Vaccines UTD: No Date of Pneumonia Vaccine: Mar 23, 2017 Date of Influenza Vaccine: Apr 25, 2019 Seasonal Allergies Seasonal Allergies: No Past Medical History Surgeries: Yes (HERNIA REPAIR; EGD; VIANCA/CARDIOVERSION, CATARACT, cardiac bypass 2003) Cardiac, CABG, Gallbladder, Hysterectomy Respiratory: Yes (O2 3L ) Asthma, COPD Currently Using CPAP: No Currently Using BIPAP: No Cardiac: Yes Atrial Fibrillation, Coronary Artery Disease, High Cholesterol, Hypertension Neurological: No Reproductive Disorders: No Female Reproductive Disorders: Denies Sexually Transmitted Disease: No HIV/AIDS: No Genitourinary: Yes (URGENCY) UTI-Chronic Gastrointestinal: Yes Gastroesophageal Reflux Musculoskeletal: Yes (hx fx left wrist, lower back disc ) Degenerate Disk Disease, Arthritis, Chronic Back Pain Endocrine: No HEENT: Yes (GLASSES, DENTURES) Cataract Loss of Vision: Denies Hearing Impairment: Hard of Hearing Cancer: No Psychosocial: Yes Anxiety, Depression Integumentary: No Blood Disorders: No Adverse Reaction/Blood Tranf: No (N/A) Family Medical History Arthritis Cardiovascular disease 19 FATHER 19 MOTHER G8 BROTHER FH: [place] (myocardial infarction) 19 FATHER ( at 67 from [place]) 19 MOTHER ( at 39 from [place]) Hypertension CAD Over 55 Years Old Physical Exam Vital Signs Capillary Refill : Height/Weight/BMI Height: 5'6.00" Weight: 254lbs. 0.0oz. 115.728983sw; 39.79 BMI Method:Stated General Appearance: WD/WN, mild distress HEENT: PERRL/EOMI, normal ENT inspection; No pharynx normal (Oropharynx mildly dry) Neck: full range of motion, normal inspection Respiratory: no respiratory distress, no accessory muscle use Cardiovascular: normal peripheral pulses, regular rate, rhythm Gastrointestinal: normal bowel sounds, non tender, soft, no organomegaly Extremities: normal inspection, normal capillary refill Neurologic/Psychiatric: alert, normal mood/affect, oriented x 3 Progress/Results/Core Measures Results/Orders Lab Results Laboratory Tests Test 12/01/20 01:36 Range/Units White Blood Count 11.9 H 4.3-11.0 10^3/uL Red Blood Count 4.50 3.80-5.11 10^6/uL Hemoglobin 13.6 11.5-16.0 g/dL Hematocrit 41 35-52 % Mean Corpuscular Volume 92 80-99 fL Mean Corpuscular Hemoglobin 30 25-34 pg Mean Corpuscular Hemoglobin Concent 33 32-36 g/dL Red Cell Distribution Width 13.9 10.0-14.5 % Platelet Count 244 130-400 10^3/uL Mean Platelet Volume 10.5 9.0-12.2 fL Immature Granulocyte % (Auto) 0 % Neutrophils (%) (Auto) 86 H 42-75 % Lymphocytes (%) (Auto) 6 L 12-44 % Monocytes (%) (Auto) 7 0-12 % Eosinophils (%) (Auto) 1 0-10 % Basophils (%) (Auto) 0 0-10 % Neutrophils # (Auto) 10.2 H 1.8-7.8 10^3/uL Lymphocytes # (Auto) 0.7 L 1.0-4.0 10^3/uL Monocytes # (Auto) 0.9 0.0-1.0 10^3/uL Eosinophils # (Auto) 0.1 0.0-0.3 10^3/uL Basophils # (Auto) 0.0 0.0-0.1 10^3/uL Immature Granulocyte # (Auto) 0.0 0.0-0.1 10^3/uL Neutrophils % (Manual) 89 % Lymphocytes % (Manual) 5 % Monocytes % (Manual) 6 % Sofiya Rods SLIGHT Anisocytosis MODERATE Blood Morphology Comment NA Sodium Level 139 135-145 MMOL/L Potassium Level 4.4 3.6-5.0 MMOL/L Chloride Level 105 98-107 MMOL/L Carbon Dioxide Level 19 L 21-32 MMOL/L Anion Gap 15 H 5-14 MMOL/L Blood Urea Nitrogen 20 H 7-18 MG/DL Creatinine 1.18 0.60-1.30 MG/DL Estimat Glomerular Filtration Rate 45 BUN/Creatinine Ratio 17 Glucose Level 129 H 70-105 MG/DL Calcium Level 8.7 8.5-10.1 MG/DL Corrected Calcium 8.8 8.5-10.1 MG/DL Total Bilirubin 1.0 0.1-1.0 MG/DL Aspartate Amino Transf (AST/SGOT) 19 5-34 U/L Alanine Aminotransferase (ALT/SGPT) 14 0-55 U/L Alkaline Phosphatase 86 40-136 U/L Total Protein 6.9 6.4-8.2 GM/DL Albumin 3.9 3.2-4.5 GM/DL My Orders Orders - JEY WAYNE Ondansetron Injection (Zofran Injectio (12/01/20 01:45) Ed Iv/Invasive Line Start (12/01/20 01:32) Lactated Ringers (Lr 1000 Ml Iv Solution (12/01/20 01:45) Cbc With Automated Diff (12/01/20 01:32) Comprehensive Metabolic Panel (12/01/20 01:32) Manual Differential (12/01/20 01:36) Iohexol Injection (Omnipaque 350 Mg/Ml 1 (12/01/20 02:15) Received Contrast (Hold Metformin- Contr (12/01/20 02:15) Ns (Ivpb) (Sodium Chloride 0.9% Ivpb Bag (12/01/20 02:15) Ct Abdomen/Pelvis Wo (12/01/20 02:22) Medications Given in ED Current Medications Medications Dose Ordered Sig/Dominique Route Start Time Stop Time Status Last Admin Dose Admin Lactated Ringer's 1,000 ml @ 0 mls/hr Q0M ONCE IV 12/01/20 01:45 12/01/20 01:47 DC 12/01/20 01:43 1,000 MLS/HR Ondansetron HCl 8 mg ONCE ONCE IVP 12/01/20 01:45 12/01/20 01:47 DC 12/01/20 01:42 8 MG Progress Progress Note : Time: 01:37 Progress Note Likely a viral gastroenteritis versus foodborne toxin. Because of her advanced age plan to do a CT of the abdomen and pelvis in addition to Zofran and IV fluids, labs. Diagnostic Imaging Diagonstic Imaging: CT Plain Films/CT/US/NM/MRI: abdomen, pelvis Comments No acute findings involving the unenhanced solid abdominal organs. Gallbladder is absent. Negative for lower GI tract obstruction, focal bowel wall thickening or pneumatosis. There are minimally fluid distended small bowel loops and liquid stool in the colon. Findings are most consistent with mild acute enteritis. The appendix was not visualized. Negative for pneumoperitoneum or abdominal pelvic fluid collection. Mild aneurysmal enlargement infrarenal abdominal aorta measuring up to 3 cm diameter Reviewed: Reviewed by Me Departure Impression Primary Impression: Gastroenteritis and colitis, viral Disposition: HOME, SELF-CARE Condition: Stable Departure-Patient Inst. Decision time for Depature: 03:02 Referrals: BIBIANA KAPADIA MD (PCP) Primary Care Physician TONYA GLORIA (Family) Primary Care Physician Patient Instructions: Viral Gastroenteritis, Adult (DC) Add. Discharge Instructions: Drink plenty of fluids. Zofran 1 tablet every 6 hours under the tongue as necessary for nausea and/or vomiting. 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 Return to the ER promptly if you are unable to keep up with your fluid intake or are having other, worrisome, emergent symptoms. All discharge instructions reviewed with patient and/or family. Voiced understanding. Scripts Ondansetron (Ondansetron Odt) 4 Mg Tab.rapdis 4 MG PO Q6H PRN for NAUSEA/VOMITING, #12 TAB 0 Refills Prov: JEY WAYNE 12/01/20 JEY WAYNE December 01, 2020 01:37
[2020-12-01 01:42] LABS: BASOPHILS % (AUTO) 0 % (0-10); EOSINOPHILS # (AUTO) 0.1 10^3/uL (0.0-0.3); EOSINOPHILS % (AUTO) 1 % (0-10); HEMATOCRIT 41 % (35-52); HEMOGLOBIN 13.6 g/dL (11.5-16.0); LYMPHOCYTES # (AUTO) 0.7 10^3/uL (1.0-4.0); LYMPHOCYTES % (AUTO) 6 % (12-44); MEAN CORPUSCULAR HEMOGLOBIN 30 pg (25-34); MEAN CORPUSCULAR HGB CONC 33 g/dL (32-36); MEAN CORPUSCULAR VOLUME 92 fL (80-99); MEAN PLATELET VOLUME 10.5 fL (9.0-12.2); MONOCYTES # (AUTO) 0.9 10^3/uL (0.0-1.0); MONOCYTES % (AUTO) 7 % (0-12); NEUTROPHILS # (AUTO) 10.2 10^3/uL (1.8-7.8); NEUTROPHILS % (AUTO) 86 % (42-75); PLATELET COUNT 244 10^3/uL (130-400); WHITE BLOOD COUNT 11.9 10^3/uL (4.3-11.0)
[2020-12-01] MEDS ORDERED: LACTATED RINGERS 1,000 ML IV ONE (01:45)
[2020-12-01] MEDS ORDERED: ONDANSETRON 4 MG/2 ML (SDV) Z0FRAN IVP ONE (01:45)
[2020-12-01 01:53] LABS: ALBUMIN 3.9 GM/DL (3.2-4.5); POTASSIUM 4.4 MMOL/L (3.6-5.0)
[2020-12-01 01:54] LABS: CALCIUM 8.7 MG/DL (8.5-10.1)
[2020-12-01 01:55] LABS: TOTAL PROTEIN 6.9 GM/DL (6.4-8.2)
[2020-12-01 01:59] LABS: CREATININE SERUM 1.18 MG/DL (0.60-1.30)
[2020-12-01 02:00] LABS: ANISOCYTOSIS MODERATE; LYMPHOCYTES % (MANUAL) 5 %; MONOCYTES % (MANUAL) 6 %; NEUTROPHILS % (MANUAL) 89 %
[2020-12-01] MEDS ORDERED: NS 100 ML (IVPB) BAG IV ONE (02:15)
[2020-12-01] MEDS ORDERED: IOHEXOL 350 MG/ML 100 ML (OMNIPAQUE 350) VIAL IV ONE (02:15)
[2020-12-01] MEDS ORDERED: HOLD METFORMIN - RECEIVED CONTRAST 20 ML VIAL IV SCH (02:15)
[2020-12-01] MEDS ORDERED: ONDA4TAB11 PO (03:06)
[2020-12-01] MEDS ORDERED: RX-ONDANSETRON 4 MG ODT (ZOFRAN) PPK #4 PO STA (03:06)
[2020-12-01 03:28] VITALS: BP 94/67
--- NOTE | 2020-12-01 07:37 | Diagnostic Imaging Report ---
PROCEDURE: CT abdomen and pelvis without contrast. TECHNIQUE: Multiple contiguous axial images were obtained through the abdomen and pelvis without the use of intravenous contrast. Auto Exposure Controls were utilized during the CT exam to meet ALARA standards for radiation dose reduction. INDICATION: Vomiting and diarrhea. COMPARISON: 09/02/2019. FINDINGS: The heart is enlarged. Scarring/atelectasis is seen in the lung bases, right greater than left. The liver, spleen, pancreas, adrenal glands, and kidneys have a normal appearance. The gallbladder surgically absent. There is no pathologically enlarged mesenteric or retroperitoneal adenopathy. Nondilated fluid-filled loops of small bowel are seen in the abdomen and pelvis. No evidence of bowel obstruction. There is no free fluid or free air. Chronic height loss is visualized in the L1, L3, and L4 vertebral bodies. Generalized osteopenia is present. There is calcified aortic and iliac atherosclerotic plaque with stable mild aneurysmal dilation of the infrarenal abdominal aorta measuring 3.0 cm. Ureters and bladder are normal. There is no free air, loculated collection, or adenopathy in the pelvis. IMPRESSION: 1. Nondilated fluid-filled loops of small bowel in the abdomen and pelvis, which can be seen with enteritis. No bowel obstruction, free fluid, or free air. 2. Stable mild aneurysmal dilation of the infrarenal abdominal aorta. Agree with overnight report. Dictated by: Dictated on workstation # [id number]
== END 2020-12-01 03:30 | disposition home or self-care (01) ==
LOC: EDUNIT# 01:26 → ER 01:29
DX: A08.4 Viral intestinal infection, unspecified (principal); J44.9 Chronic obstructive pulmonary disease, unspecified; I10 Essential (primary) hypertension; I25.10 Atherosclerotic heart disease of native coronary artery without angina pectoris; K21.9 Gastro-esophageal reflux disease without esophagitis; E78.00 Pure hypercholesterolemia, unspecified; F41.9 Anxiety disorder, unspecified; F32.9 Major depressive disorder, single episode, unspecified; Z88.0 Allergy status to penicillin; Z91.041 Radiographic dye allergy status; Z87.891 Personal history of nicotine dependence; Z79.899 Other long term (current) drug therapy
CPT/HCPCS: 36415; 74176; 80053; 85007; 85027

== ENCOUNTER 2020-12-31 12:31 | Outpatient (CLI) | payer MEDICARE, OTHER ==
[~2020-12-31 12:31] MED LIST changes: +ONDA4TAB11 PO
== END 2020-12-31 13:10 | disposition home or self-care (01) ==
LOC: SLEEP 12:31
PROVIDERS: ATTEND Nurse Practitioner Family
DX: G47.33 Obstructive sleep apnea (adult) (pediatric) (principal)
CPT/HCPCS: G0399

== ENCOUNTER → 2021-01-20 | Outpatient (CLI) | payer MEDICARE, OTHER ==
[~2021-01-20] MED LIST changes: +CETI10TA17 PO; +GABA300C PO; +MTP25TSR PO; +RIVA20TA PO; +RT-ALBUINH IH; +TIOT18CA2 IH
== END ==
LOC: LABNPT 07:19
PROVIDERS: ATTEND Otolaryngology Otolaryngology/Facial Plastic Surgery
DX: Z53.9 Procedure and treatment not carried out, unspecified reason (principal)
CPT/HCPCS: 87635

== ENCOUNTER → 2021-02-17 | Outpatient (CLI) | payer MEDICARE, OTHER ==
[~2021-02-17] MED LIST changes: -SULF1TAB35 PO; +SULF1TAB38 PO
== END ==
LOC: LABNPT 06:18
PROVIDERS: ATTEND Otolaryngology Otolaryngology/Facial Plastic Surgery
DX: G47.33 Obstructive sleep apnea (adult) (pediatric) (principal)

== ENCOUNTER 2021-10-06 13:44 | Emergency (ER) | payer MEDICARE, OTHER ==
[~2021-10-06] VITALS: Ht 167 cm; Wt 108.0 kg
[~2021-10-06 13:44] MED LIST changes: -AMIO200T6 PO; +AMIO200T65 PO; +POTA-164 PO; -POTA10TA14 PO
--- NOTE | 2021-10-06 13:55 | ED General ---
General Stated Complaint: R ARM NUMBNESS - HEAVINESS IN CHEST Source of Information: Patient Exam Limitations: No Limitations History of Present Illness Date Seen by Provider: Oct 06, 2021 Time Seen by Provider: 13:53 Initial Comments To ER with chest pain described as a heaviness rated at 5 out of 10 intermittent since last night and present currently. She does have shortness of breath which she feels is worse than normal no nausea. She also has some pain and tenderness to palpation around the right shoulder and that radiates down the right arm as a numbness sensation. No symptoms in the right leg. No other neurologic symptoms. She did have some neck pain last night. History of CABG. She follows with Dr. Tinoco. History of atrial fibrillation and COPD and is oxygen dependent. Timing/Duration: 12-24 Hours Severity: Moderate Associated Systoms: Chest Pain Allergies and Home Medications Allergies Coded Allergies: Iodinated Contrast Media (Unverified Allergy, Mild, NAUSEA, 11/28/19) Pt states it's the IV dye used in heart tests not CT scans penicillin G (Verified Allergy, Mild, RASH, 11/28/19) RASH Patient Home Medication List Home Medication List Reviewed: Yes Albuterol Sulfate (Proair Hfa) 1 Puff Puff, 2 PUFF IH Q4H PRN for SHORTNESS OF BREATH, (Reported) Entered as Reported by: ELLIE LAUGHLIN on 01/10/21 1045 Amlodipine Besylate (Amlodipine Besylate) 5 Mg Tablet, 5 MG PO DAILY, (Reported) Entered as Reported by: ELLIE LAUGHLIN on 08/14/19 1330 Atorvastatin Calcium (Atorvastatin Calcium) 40 Mg Tablet, 40 MG PO DAILY, (Reported) Entered as Reported by: ELLIE LAUGHLIN on 08/14/19 1337 Cetirizine HCl (Cetirizine HCl) 10 Mg Tablet, 10 MG PO DAILY, (Reported) Entered as Reported by: ELLIE LAUGHLIN on 01/10/21 1045 Cholecalciferol (Vitamin D3) (Vitamin D3) 50 Mcg Capsule, 50 MCG PO DAILY, (Reported) Entered as Reported by: ADI RIVERA on 11/28/19 0932 Fluticasone/Salmeterol (Advair 250-50 Diskus) 1 Each Blst.w.dev, 1 EACH IH BID, (Reported) Entered as Reported by: ELLIE LAUGHLIN on 08/14/19 1357 Furosemide (Furosemide) 20 Mg Tablet, 20 MG PO DAILY, (Reported) Entered as Reported by: MARY PERRY on 02/29/20 08 Gabapentin (Neurontin) 300 Mg Capsule, 300 MG PO TID PRN for PAIN-BREAKTHROUGH, (Reported) Entered as Reported by: ELLIE LAUGHLIN on 01/10/21 1045 Lactobacillus Acidophilus (Probiotic) 1 Each Capsule, 1 EACH PO DAILY, (Reported) Entered as Reported by: MARY PERRY on 02/29/20 0821 Metoprolol Tartrate (Metoprolol Tartrate) 25 Mg Tablet, 25 MG PO BID, (Reported) Entered as Reported by: ELLIE LAUGHLIN on 01/10/21 1132 Omeprazole (Omeprazole) 20 Mg Capsule.dr, 20 MG PO HS, (Reported) Entered as Reported by: NIYAH SHELLEY on 03/10/17 0929 Oxybutynin Chloride (Oxybutynin Chloride ER) 10 Mg Tab.er.24, 10 MG PO DAILY, (Reported) Entered as Reported by: MARY PERRY on 02/29/20 0821 Paroxetine HCl (Paroxetine HCl) 40 Mg Tablet, 40 MG PO DAILY, (Reported) Entered as Reported by: ELLIE LAUGHLIN on 08/14/19 1337 Potassium Chloride (Klor-Con M10) 10 Meq Tab.er.prt, 10 MEQ PO DAILY, (Reported) Entered as Reported by: NIYAH SHELLEY on 03/10/17 0930 Rivaroxaban (Xarelto) 20 Mg Tablet, 20 MG PO DAILY, (Reported) Entered as Reported by: ELLIE LAUGHLIN on 01/10/21 1045 Terazosin HCl (Terazosin HCl) 5 Mg Capsule, 5 MG PO DAILY, (Reported) Entered as Reported by: NIYAH SHELLEY on 08/25/16 1315 Tiotropium [place] (Spiriva) 1 Inh Aerp, 1 INH IH DAILY, (Reported) Entered as Reported by: ELLIE LAUGHLIN on 01/10/21 1046 Trazodone HCl (Trazodone HCl) 50 Mg Tablet, 50 MG PO HS, (Reported) Entered as Reported by: ELLIE LAUGHLIN on 08/14/19 1330 Valsartan (Valsartan) 160 Mg Tablet, 160 MG PO DAILY, (Reported) Entered as Reported by: ELLIE LAUGHLIN on 08/14/19 1337 Zolpidem Tartrate (Ambien) 10 Mg Tablet, 10 MG PO HS, (Reported) Entered as Reported by: NIYAH SHELLEY on 08/25/16 1322 Review of Systems Review of Systems Constitutional: see HPI; No chills, No fever EENTM: see HPI Respiratory: see HPI; No cough; dyspnea on exertion, short of breath Cardiovascular: see HPI, chest pain Genitourinary: no symptoms reported Musculoskeletal: no symptoms reported Skin: no symptoms reported Psychiatric/Neurological: No Symptoms Reported Hematologic/Lymphatic: No Symptoms Reported Past Jkptglk-Ijbakl-Uvhqtu Hx Immunizations Up To Date Tetanus Booster (TDap): Unknown PED Vaccines UTD: No Seasonal Allergies Seasonal Allergies: No Past Medical History Surgeries: Yes (HERNIA REPAIR; EGD; VIANCA/CARDIOVERSION, CATARACT, cardiac bypass 2003) Cardiac, CABG, Gallbladder, Hysterectomy Respiratory: Yes (O2 3L ) Asthma, COPD Currently Using CPAP: No Currently Using BIPAP: No Cardiac: Yes Atrial Fibrillation, Coronary Artery Disease, High Cholesterol, Hypertension Neurological: No Reproductive Disorders: No Female Reproductive Disorders: Denies 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, 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 Sexually Transmitted Disease: No HIV/AIDS: No Genitourinary: Yes (URGENCY) UTI-Chronic Gastrointestinal: Yes Gastroesophageal Reflux Musculoskeletal: Yes (hx fx left wrist, lower back disc ) Degenerate Disk Disease, Arthritis, Chronic Back Pain Endocrine: No HEENT: Yes (GLASSES, DENTURES) Cataract Loss of Vision: Denies Hearing Impairment: Hard of Hearing Cancer: No Psychosocial: Yes Anxiety, Depression Integumentary: No Blood Disorders: No Adverse Reaction/Blood Tranf: No (N/A) Family Medical History Arthritis Cardiovascular disease 19 FATHER 19 MOTHER G8 BROTHER FH: [place] (myocardial infarction) 19 FATHER ( at 67 from [place]) 19 MOTHER ( at 39 from [place]) Hypertension CAD Over 55 Years Old Physical Exam Vital Signs Vital Signs - First Documented 10/06/21 13:47 Temp 36.8 Pulse 80 Resp 14 B/P (MAP) 155/77 (103) Pulse Ox 97 O2 Delivery Nasal Cannula O2 Flow Rate 3.00 Capillary Refill : Height, Weight, BMI Height: 5'6.00" Weight: 254lbs. 0.0oz. 115.285379nz; 43.19 BMI Method:Stated General Appearance: No Apparent Distress, WD/WN, Other (No distress. Alert and oriented. Heart rate is [address] segment changes. Blood pressure 150 over 70s.) Eyes: Bilateral Eye Normal Inspection, Bilateral Eye PERRL Neck: Full Range of Motion, Normal Inspection Respiratory: Normal Breath Sounds, No Accessory Muscle Use, No Respiratory Distress Cardiovascular: Regular Rate, Rhythm, No Edema, Normal Peripheral Pulses Gastrointestinal: Normal Bowel Sounds, Non Tender, Soft Extremity: Normal Capillary Refill, Normal Inspection Neurologic/Psychiatric: Alert, Oriented x3 Skin: Normal Color, Warm/Dry Progress/Results/Core Measures Suspected Sepsis SIRS Temperature: Pulse: Respiratory Rate: Laboratory Tests 10/06/21 13:52: White Blood Count 8.6 Blood Pressure / Mean: Laboratory Tests 10/06/21 13:52: Creatinine 0.92, INR Comment 1.8H, Platelet Count 241, Total Bilirubin 0.5 Results/Orders Lab Results Laboratory Tests Test 10/06/21 13:52 10/06/21 16:42 Range/Units White Blood Count 8.6 4.3-11.0 10^3/uL Red Blood Count 4.80 3.80-5.11 10^6/uL Hemoglobin 14.5 11.5-16.0 g/dL Hematocrit 44 35-52 % Mean Corpuscular Volume 93 80-99 fL Mean Corpuscular Hemoglobin 30 25-34 pg Mean Corpuscular Hemoglobin Concent 33 32-36 g/dL Red Cell Distribution Width 14.2 10.0-14.5 % Platelet Count 241 130-400 10^3/uL Mean Platelet Volume 10.6 9.0-12.2 fL Immature Granulocyte % (Auto) 0 % Neutrophils (%) (Auto) 74 42-75 % Lymphocytes (%) (Auto) 16 12-44 % Monocytes (%) (Auto) 8 0-12 % Eosinophils (%) (Auto) 2 0-10 % Basophils (%) (Auto) 1 0-10 % Neutrophils # (Auto) 6.3 1.8-7.8 10^3/uL Lymphocytes # (Auto) 1.4 1.0-4.0 10^3/uL Monocytes # (Auto) 0.7 0.0-1.0 10^3/uL Eosinophils # (Auto) 0.1 0.0-0.3 10^3/uL Basophils # (Auto) 0.0 0.0-0.1 10^3/uL Immature Granulocyte # (Auto) 0.0 0.0-0.1 10^3/uL Prothrombin Time 21.3 H 12.2-14.7 SEC INR Comment 1.8 H 0.8-1.4 Activated Partial Thromboplast Time 34 24-35 SEC Sodium Level 139 135-145 MMOL/L Potassium Level 4.3 3.6-5.0 MMOL/L Chloride Level 105 98-107 MMOL/L Carbon Dioxide Level 23 21-32 MMOL/L Anion Gap 11 5-14 MMOL/L Blood Urea Nitrogen 12 7-18 MG/DL Creatinine 0.92 0.60-1.30 MG/DL Estimat Glomerular Filtration Rate 65 BUN/Creatinine Ratio 13 Glucose Level 104 70-105 MG/DL Calcium Level 9.1 8.5-10.1 MG/DL Corrected Calcium 9.3 8.5-10.1 MG/DL Magnesium Level 1.8 1.6-2.4 MG/DL Total Bilirubin 0.5 0.1-1.0 MG/DL Aspartate Amino Transf (AST/SGOT) 16 5-34 U/L Alanine Aminotransferase (ALT/SGPT) 10 0-55 U/L Alkaline Phosphatase 84 40-136 U/L Myoglobin 36.0 10.0-92.0 NG/ML Troponin I < 0.028 < 0.028 <0.028 NG/ML B-Type Natriuretic Peptide 260.4 H <100.0 PG/ML Total Protein 6.5 6.4-8.2 GM/DL Albumin 3.7 3.2-4.5 GM/DL My Orders Orders - SHEILA NARAYANAN APRN Cbc With Automated Diff (10/06/21 13:52) Magnesium (10/06/21 13:52) Chest 1 View, Ap/Pa Only (10/06/21 13:52) Ekg Tracing (10/06/21 13:52) Comprehensive Metabolic Panel (10/06/21 13:52) Myoglobin Serum (10/06/21 13:52) Protime With Inr (10/06/21 13:52) Partial Thromboplastin Time (10/06/21 13:52) O2 (10/06/21 13:52) Monitor-Rhythm Ecg Trace Only (10/06/21 13:52) Lipid Panel (10/07/21 06:00) Ed Iv/Invasive Line Start (10/06/21 13:52) Bnp [place]ner (10/06/21 13:52) Nitroglycerin 0.4 Mg Btl 25's (Nitrostat (10/06/21 14:00) Aspirin Chewable Tablet (Baby Aspirin Ch (10/06/21 14:00) Troponin I Lilibeth (10/06/21 13:52) Troponin I Lilibeth (10/06/21 16:30) Medications Given in ED Current Medications Medications Dose Ordered Sig/Dominique Route Start Time Stop Time Status Last Admin Dose Admin Aspirin 324 mg ONCE ONCE PO 10/06/21 14:00 10/06/21 14:01 DC 10/06/21 13:58 324 MG Nitroglycerin 0.4 mg UD PRN SL 10/06/21 14:00 10/06/21 13:58 0.4 MG Vital Signs/I&O 10/06/21 10/06/21 13:47 13:47 Temp 36.8 Pulse 80 Resp 14 B/P (MAP) 155/77 (103) Pulse Ox 97 O2 Delivery Nasal Cannula O2 Flow Rate 3.00 Capillary Refill : Departure Communication (Admissions) [address] Tinoco. Patient remains asymptomatic after 1 sublingual nitroglycerin. Her repeat troponin still negative. He would recommend observing her in the hospital overnight with serial troponins. Discussed this with the patient. She states that she left her blinds open and her cat is unattended at home. She would like to go on home rather than being admitted. I spoke with Dr. Tinoco again. We will discharge her and he will follow-up in the clinic. Impression Primary Impression: Chest pain Disposition: 01 HOME, SELF-CARE Condition: Stable Departure-Patient Inst. Decision time for Depature: 17:30 Referrals: BIBIANA KAPADIA MD (PCP) Primary Care Physician TONYA GLORIA (Family) Primary Care Physician Patient Instructions: Chest Pain (DC) Add. Discharge Instructions: 1. Please return to the emergency room for any worsening symptoms or other concerns. Follow-up with Dr. Tinoco. Call tomorrow to make an appointment to be seen. SHEILA NARAYANAN APRN 14, 2022 13:55
[2021-10-06 14:00] LABS: BASOPHILS % (AUTO) 1 % (0-10); EOSINOPHILS # (AUTO) 0.1 10^3/uL (0.0-0.3); EOSINOPHILS % (AUTO) 2 % (0-10); HEMATOCRIT 44 % (35-52); HEMOGLOBIN 14.5 g/dL (11.5-16.0); LYMPHOCYTES # (AUTO) 1.4 10^3/uL (1.0-4.0); LYMPHOCYTES % (AUTO) 16 % (12-44); MEAN CORPUSCULAR HEMOGLOBIN 30 pg (25-34); MEAN CORPUSCULAR HGB CONC 33 g/dL (32-36); MEAN CORPUSCULAR VOLUME 93 fL (80-99); MEAN PLATELET VOLUME 10.6 fL (9.0-12.2); MONOCYTES # (AUTO) 0.7 10^3/uL (0.0-1.0); MONOCYTES % (AUTO) 8 % (0-12); NEUTROPHILS # (AUTO) 6.3 10^3/uL (1.8-7.8); NEUTROPHILS % (AUTO) 74 % (42-75); PLATELET COUNT 241 10^3/uL (130-400); WHITE BLOOD COUNT 8.6 10^3/uL (4.3-11.0)
[2021-10-06] MEDS ORDERED: NITROGLYCERIN 0.4 MG SL TABS BTL 25'S SL PRN (14:00)
[2021-10-06] MEDS ORDERED: ASPIRIN 81 MG CHEW (CHILDREN'S ASA) PO ONE (14:00)
[2021-10-06 14:11] LABS: ALBUMIN 3.7 GM/DL (3.2-4.5)
[2021-10-06 14:12] LABS: CHLORIDE 105 MMOL/L (98-107); POTASSIUM 4.3 MMOL/L (3.6-5.0); SODIUM 139 MMOL/L (135-145)
[2021-10-06 14:13] LABS: CALCIUM 9.1 MG/DL (8.5-10.1)
[2021-10-06 14:14] LABS: GLUCOSE 104 MG/DL (70-105); INR 1.8 (0.8-1.4); PROTHROMBIN TIME PATIENT 21.3 SEC (12.2-14.7); TOTAL PROTEIN 6.5 GM/DL (6.4-8.2)
[2021-10-06 14:15] LABS: CARBON DIOXIDE 23 MMOL/L (21-32)
[2021-10-06 14:16] LABS: BILIRUBIN,TOTAL 0.5 MG/DL (0.1-1.0)
[2021-10-06 14:17] LABS: ALKALINE PHOSPHATASE 84 U/L (40-136)
[2021-10-06 14:18] LABS: CREATININE SERUM 0.92 MG/DL (0.60-1.30); GFR ESTIMATED 65
[2021-10-06 14:19] LABS: BUN/CREATININE RATIO 13
[2021-10-06 14:20] LABS: ALANINE AMINOTRANSFERASE 10 U/L (0-55)
[2021-10-06 14:21] LABS: MAGNESIUM 1.8 MG/DL (1.6-2.4)
--- NOTE | 2021-10-06 14:27 | Diagnostic Imaging Report ---
INDICATION: Chest pain. TECHNIQUE: Single AP view of chest is obtained with comparison made to study of 01/23/2020. FINDINGS: Overall heart size is at the upper limits of normal. Pulmonary vascularity is unremarkable. There is mild linear atelectasis or scarring in the left base. Surgical findings are seen in the mediastinum. No pneumothorax or lobar consolidation is identified. IMPRESSION: Mild left basilar atelectasis and/or scarring without other acute abnormality detected. Dictated by: Dictated on workstation # [id number]
[2021-10-06 17:40] VITALS: BP 123/89
== END 2021-10-06 17:42 | disposition home or self-care (01) ==
LOC: EDUNIT# 13:44 → ER 13:46
DX: R07.9 Chest pain, unspecified (principal)
CPT/HCPCS: 36415; 71045; 80053; 83735; 83874; 83880; 84484; 85025; 85610; 85730; 93005; 93041

== ENCOUNTER → 2021-10-08 | Outpatient (CLI) | payer MEDICARE, OTHER | LOC: CARD 08:32 | PROVIDERS: ATTEND Internal Medicine Cardiovascular Disease | DX: I08.1 Rheumatic disorders of both mitral and tricuspid valves (principal); I11.9 Hypertensive heart disease without heart failure; I71.4 Abdominal aortic aneurysm, without rupture | CPT/HCPCS: 93306 ==

== ENCOUNTER → 2021-12-01 | Outpatient (CLI) | payer MEDICARE, OTHER ==
[~2021-12-01] MED LIST changes: +CATHETER FLUSH 10 ML SYR IVP PRN; +REGADENOSON 0.4 MG/5 ML SYR (LEXISCAN) IV ONE
[2021-12-01 09:48] VITALS: BP 148/80
--- NOTE | 2021-12-01 11:29 | Cardiology Stress Test Report ---
Stress Test Report Date of Procedure/Referring: Date of Procedure: December 01, 2021 PCP Tejal Tinoco MD Admitting Physician Bibiana Spring MD Indications: CP Baseline Heart Rate: 82 Baseline Blood Pressure: Blood Pressure Systolic: 148 Blood Pressure Diastolic: 80 Baseline Vitals Vital Signs Date Time Temp Pulse Resp B/P (MAP) Pulse Ox O2 Delivery O2 Flow Rate FiO2 12/01/21 09:48 82 148/80 (102) 99 Baseline EKG: Baseline EKG: A Fib Summary After explaining the procedure to the patient, she signed a consent and then brought to the stress nuclear laboratory. Patient received 0.4 mg Lexiscan for stress test, ECG, heart rate and blood pressure were monitored continuously. Resting and stress dose of radio tracer were injected, imaging was acquired and reviewed in short axis, horizontal long axis and vertical long axis views. TID: 1.05 SSS: 18 SDS: 14 EF: 55 1. Patient tolerated Lexiscan well 2. Baseline atrial fibrillation persisted during test 3. Reversible ischemia involving the whole anterior wall, anterolateral wall and anterior septum 4. Normal left ventricular size, ejection fraction 55% Copy Copies To 1: BIBIANA SPRING MD, BASHAR J MD December 01, 2021 11:29
== END ==
LOC: CARD 08:30
PROVIDERS: ATTEND Internal Medicine Cardiovascular Disease
DX: I25.10 Atherosclerotic heart disease of native coronary artery without angina pectoris (principal); I10 Essential (primary) hypertension
CPT/HCPCS: 78452; 93017; A9502

== ENCOUNTER → 2022-02-18 | Outpatient (CLI) | payer OTHER ==
[~2022-02-18] MED LIST changes: -CATHETER FLUSH 10 ML SYR IVP PRN; -REGADENOSON 0.4 MG/5 ML SYR (LEXISCAN) IV ONE; +RT-ALBUTEROL SULF 2.5 MG/3 ML PRE-MIX VIAL INH ONE
--- NOTE | 2022-02-18 12:07 | Diagnostic Imaging Report ---
INDICATION: SHORTNESS OF BREATH COMPARISON: 10/06/2021 FINDINGS: Frontal and lateral views of the chest demonstrate normal heart size and pulmonary vascularity. The lungs are clear. There are no signs of infiltrate, pleural effusions or pneumothoraces. The visualized osseous structures show no acute abnormalities. Sternotomy wires are noted. There is calcified aortic atherosclerosis. IMPRESSION: 1. No acute process. No signs of infiltrates, effusions or pneumothoraces. Dictated by: Dictated on workstation # [id number]
== END ==
LOC: RT 11:31
PROVIDERS: ATTEND Internal Medicine Critical Care Medicine
DX: R06.02 Shortness of breath (principal)
CPT/HCPCS: 71046; 94060; 94621; 94726; 94729

== ENCOUNTER → 2022-12-18 | Outpatient (CLI) | payer MEDICARE, OTHER ==
[~2022-12-18] MED LIST changes: +ALBU8.5H6 IH; -NYST15CR TP; +NYST15CR35 TP; -RT-ALBUINH IH; -RT-ALBUTEROL SULF 2.5 MG/3 ML PRE-MIX VIAL INH ONE
== END ==
LOC: CARD 08:23
PROVIDERS: ATTEND Physician Assistant
DX: I34.0 Nonrheumatic mitral (valve) insufficiency (principal); I11.9 Hypertensive heart disease without heart failure
CPT/HCPCS: 93306

== ENCOUNTER 2023-03-17 12:01 | Emergency (ER) | payer MEDICARE, OTHER ==
[~2023-03-17] VITALS: Ht 167 cm; Wt 105.0 kg
--- NOTE | 2023-03-17 12:19 | ED Upper Extremity ---
General Chief Complaint: Upper Extremity Stated Complaint: FALL | RT ARM/WRIST INJ Source: patient Exam Limitations: no limitations History of Present Illness Date Seen by Provider: Mar 17, 2023 Time Seen by Provider: 12:16 Initial Comments Patient is a 77-year-old female who presents ED with right wrist injury. Patient states she fell 1 hour ago. She was walking to the bathroom and twisted and turned lost her balance falling on her extended out right wrist. She does not believe she hit her head. She denies any loss of conscious. She is on Xarelto. Her only complaint at this time is her right wrist. She did notice some bruising to the left lower leg but denies of any pain with walking. She denies of any current headache, dizziness, neck pain, unilateral weakness, visual changes, chest pain, abdominal pain, middle lower back pain. She did take gabapentin as she has a history of bulging disc in her back. She reports pain with movement of the right wrist. Allergies and Home Medications Allergies Coded Allergies: Iodinated Contrast Media (Unverified Allergy, Mild, NAUSEA, 11/28/19) Pt states it's the IV dye used in heart tests not CT scans penicillin G (Verified Allergy, Mild, RASH, 11/28/19) RASH Patient Home Medication List Home Medication List Reviewed: Yes Albuterol Sulfate (Ventolin Hfa) 1 Puff Puff, 2 PUFF IH Q4H PRN for SHORTNESS OF BREATH, (Reported) Entered as Reported by: ELLIE LAUGHLIN on 01/10/21 1045 Amlodipine Besylate (Amlodipine Besylate) 5 Mg Tablet, 5 MG PO DAILY, (Reported) Entered as Reported by: ELLIE LAUGHLIN on 08/14/19 1330 Atorvastatin Calcium (Atorvastatin Calcium) 40 Mg Tablet, 40 MG PO DAILY, (Reported) Entered as Reported by: ELLIE LAUGHLIN on 08/14/19 1337 Cetirizine HCl (Cetirizine HCl) 10 Mg Tablet, 10 MG PO DAILY, (Reported) Entered as Reported by: ELLIE LAUGHLIN on 01/10/21 1045 Cholecalciferol (Vitamin D3) (Vitamin D3) 50 Mcg Capsule, 50 MCG PO DAILY, (Reported) Entered as Reported by: ADI RIVERA on 11/28/19 0932 Fluticasone/Salmeterol (Advair 250-50 Diskus) 1 Each Blst.w.dev, 1 EACH IH BID, (Reported) Entered as Reported by: ELLIE LAUGHLIN on 08/14/19 1357 Furosemide (Furosemide) 20 Mg Tablet, 20 MG PO DAILY, (Reported) Entered as Reported by: MARY PERRY on 02/29/20 08 Gabapentin (Neurontin) 300 Mg Capsule, 300 MG PO TID PRN for PAIN-BREAKTHROUGH, (Reported) Entered as Reported by: ELLIE LAUGHLIN on 01/10/21 1045 Lactobacillus Acidophilus (Probiotic) 1 Each Capsule, 1 EACH PO DAILY, (Reported) Entered as Reported by: MARY PERRY on 02/29/20 08 Metoprolol Tartrate (Metoprolol Tartrate) 25 Mg Tablet, 25 MG PO BID, (Reported) Entered as Reported by: ELLIE LAUGHLIN on 01/10/21 1132 Omeprazole (Omeprazole) 20 Mg Capsule.dr, 20 MG PO HS, (Reported) Entered as Reported by: NIYAH SHELLEY on 03/10/17 0929 Oxybutynin Chloride (Oxybutynin Chloride ER) 10 Mg Tab.er.24, 10 MG PO DAILY, (Reported) Entered as Reported by: MARY PERRY on 02/29/20 08 Paroxetine HCl (Paroxetine HCl) 40 Mg Tablet, 40 MG PO DAILY, (Reported) Entered as Reported by: ELLIE LAUGHLIN on 08/14/19 1337 Potassium Chloride (Klor-Con M10) 10 Meq Tab.er.prt, 10 MEQ PO DAILY, (Reported) Entered as Reported by: NIYAH SHELLEY on 03/10/17 0930 Rivaroxaban (Xarelto) 20 Mg Tablet, 20 MG PO DAILY, (Reported) Entered as Reported by: ELLIE LAUGHLIN on 01/10/21 1045 Terazosin HCl (Terazosin HCl) 5 Mg Capsule, 5 MG PO DAILY, (Reported) Entered as Reported by: NIYAH SHELLEY on 08/25/16 1315 Tiotropium [place] (Spiriva) 1 Inh Aerp, 1 INH IH DAILY, (Reported) Entered as Reported by: ELLIE LAUGHLIN on 01/10/21 1046 Trazodone HCl (Trazodone HCl) 50 Mg Tablet, 50 MG PO HS, (Reported) Entered as Reported by: ELLIE LAUGHLIN on 08/14/19 1330 Valsartan (Valsartan) 160 Mg Tablet, 160 MG PO DAILY, (Reported) Entered as Reported by: ELLIE LAUGHLIN on 08/14/19 1337 Zolpidem Tartrate (Ambien) 10 Mg Tablet, 10 MG PO HS, (Reported) Entered as Reported by: NIYAH SHELLEY on 08/25/16 1322 Review of Systems Constitutional: No chills, No diaphoresis EENTM: No ear pain, No blurred vision, No double vision Respiratory: No cough, No dyspnea on exertion Cardiovascular: No chest pain Gastrointestinal: No abdominal pain, No diarrhea, No nausea, No vomiting Genitourinary: No decreased output, No discharge Musculoskeletal: No back pain; joint pain, joint swelling, muscle pain Skin: change in color; No change in hair/nails All Other Systems Reviewed Negative Unless Noted: Yes Past Byhhncq-Nicjfn-Ymznod Hx Immunizations Up To Date Tetanus Booster (TDap): Unknown PED Vaccines UTD: No First/Initial COVID19 Vaccinat: 2020 Second COVID19 Vaccination Viral: 12/21/2020 Third COVID19 Vaccination Date: UNKNOWN Seasonal Allergies Seasonal Allergies: No Past Medical History Surgery/Hospitalization HX: COPD, CABG, A-FIB Surgeries: Yes (HERNIA REPAIR; EGD; VIANCA/CARDIOVERSION, CATARACT, cardiac bypass 2003) Cardiac, CABG, Gallbladder, Hysterectomy Respiratory: Yes (O2 3L ) Asthma, COPD Currently Using CPAP: No Currently Using BIPAP: No Cardiac: Yes Atrial Fibrillation, Coronary Artery Disease, High Cholesterol, Hypertension Neurological: No Reproductive Disorders: No Female Reproductive Disorders: Denies 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, Menopausal Sexually Transmitted Disease: No HIV/AIDS: No Genitourinary: Yes (URGENCY) UTI-Chronic Gastrointestinal: Yes Gastroesophageal Reflux Musculoskeletal: Yes (hx fx left wrist, lower back disc ) Degenerate Disk Disease, Arthritis, Chronic Back Pain Endocrine: No HEENT: Yes (GLASSES, DENTURES) Cataract Loss of Vision: Denies Hearing Impairment: Hard of Hearing Cancer: No Psychosocial: Yes Anxiety, Depression Integumentary: No Blood Disorders: No Adverse Reaction/Blood Tranf: No (N/A) Family Medical History Arthritis Cardiovascular disease 19 FATHER 19 MOTHER G8 BROTHER FH: [place] (myocardial infarction) 19 FATHER ( at 67 from [place]) 19 MOTHER ( at 39 from [place]) Hypertension CAD Over 55 Years Old Physical Exam Vital Signs Vital Signs - First Documented 03/17/23 12:19 Temp 36.3 Pulse 77 Resp 16 B/P (MAP) 133/75 (94) Pulse Ox 94 Capillary Refill : Height, Weight, BMI Height: 5'6.00" Weight: 254lbs. 0.0oz. 115.116131mx; 38.00 BMI Method:Stated General Appearance: WD/WN, no apparent distress HEENT: PERRL/EOMI, normal ENT inspection, TMs normal, pharynx normal Neck: non-tender, full range of motion, supple, normal inspection Cardiovascular: no edema, no gallop, no JVD, irregularly irregular Respiratory: chest non-tender, lungs clear, normal breath sounds, no respiratory distress, no accessory muscle use Gastrointestinal: normal bowel sounds, non tender, soft, no organomegaly Back: normal inspection, no CVA tenderness Shoulder: normal inspection, non-tender, no evidence of injury Elbow/Forearm: normal inspection, non-tender, no evidence of injury, Right Wrist: Yes bone tenderness (Right distal ulna and radius tenderness. No strong evidence of deformity. Neurovascular intact. Bruising noted with swelling.), Yes limited ROM Hand: non-tender, no evidence of injury, normal ROM, Right Neurologic/Psychiatric: lens gauger II-XII nml as tested, no motor/sensory deficits, alert, normal mood/affect, oriented x 3 Skin: other (Contusion to the left lower leg. No tenderness.) Progress/Results/Core Measures Results/Orders My Orders Orders - TENISHA WALLS Wrist, Right, 3 Views Or More (03/17/23 12:16) Vital Signs/I&O 03/17/23 12:19 Temp 36.3 Pulse 77 Resp 16 B/P (MAP) 133/75 (94) Pulse Ox 94 Departure Communication (PCP) Patient is a 77-year-old female who presents ED for right wrist pain. Patient with mechanical fall landed on extended out right hand. She does not believe she hit her head. She had no loss of consciousness but she is on Xarelto. She does have a bruise and contusion to left lower extremity without any tenderness. Able to ambulate without pain. She has no head tenderness or evidence of injury. No cervical, thoracic or lumbar midline tenderness. She refused anything for pain. X-ray was obtained of the right wrist. X-ray shows a impacted distal radial fracture with mild dorsal angulation. Ulnar styloid avulsion fracture. Patient was discussed with Dr. Miller orthopedic. Recommend at this time placing in a sugar-tong splint and to follow-up outpatient only. He did not necessarily recommend attempting to reduce. She does have a walker at home. She is right-handed. She does have assistance at home. Will provide sling as needed however recommend using only as needed as this may make it more difficult to walk as she already has a unsteady gait. Provided orthopedic follow-up. Follow-up within the next week. Recommend Tylenol. She refused anything stronger at this time. Neuro exam unremarkable. Impression Primary Impression: Wrist fracture Disposition: HOME, SELF-CARE Condition: Stable Departure-Patient Inst. Decision time for Depature: 12:51 Referrals: BIBIANA KAPADIA MD (PCP/Family) Primary Care Physician AMBER MILLER MD Patient Instructions: Wrist Fracture (DC) Add. Discharge Instructions: Recommend following up with Dr. Miller. Provided number and discharge. Call to schedule appointment within the next week. May use Tylenol at home. Sling for comfort. Recommend using your walker or cane for stability. If increasing pain to return back to ED. All discharge instructions reviewed with patient and/or family. Voiced understanding. TENISHA WALLS Mar 17, 2023 12:19
--- NOTE | 2023-03-17 12:41 | Diagnostic Imaging Report ---
INDICATION: Injury with pain. FINDINGS: There is comminuted dorsally angulated distal radial fractures without articular surface offset. There is avulsion at the ulnar styloid base. Bone density likely diminished. No dislocation. IMPRESSION: Impacted distal radial fracture with mild dorsal angulation. No articular offset. Ulnar styloid avulsion regional swelling and likely underlying bony demineralization. Dictated by: Dictated on workstation # [id number]
[2023-03-17 13:09] VITALS: BP 133/75
== END 2023-03-17 13:09 | disposition home or self-care (01) ==
LOC: EDUNIT# 12:01 → ER 12:03
DX: S62.101A Fracture of unspecified carpal bone, right wrist, initial encounter for closed fracture (principal); S80.12XA Contusion of left lower leg, initial encounter; I48.91 Unspecified atrial fibrillation; Z79.01 Long term (current) use of anticoagulants; W18.30XA Fall on same level, unspecified, initial encounter; X50.1XXA Overexertion from prolonged static or awkward postures, initial encounter; Y93.01 Activity, walking, marching and hiking; Y92.091 Bathroom in other non-institutional residence as the place of occurrence of the external cause
CPT/HCPCS: 29125; 73110

== ENCOUNTER → 2023-03-18 | Outpatient (CLI) | payer MEDICARE ==
[~2023-03-18] MED LIST changes: +BETA15CR4 TP; +INUL2TAB8 PO; +NYST15OI13 TP
== END ==
LOC: ORTHO 11:42
PROVIDERS: ATTEND Orthopaedic Surgery
DX: S52.501A Unspecified fracture of the lower end of right radius, initial encounter for closed fracture (principal); X58.XXXA Exposure to other specified factors, initial encounter
CPT/HCPCS: 99203

== ENCOUNTER 2023-03-19 05:28 | Outpatient (CLI) | payer MEDICARE ==
[~2023-03-19] VITALS: Ht 167.6 cm; Wt 110.1 kg
[~2023-03-19 05:28] MED LIST changes: -BETA15CR4 TP; -INUL2TAB8 PO; -NYST15OI13 TP
[2023-03-19] MEDS ORDERED: NYST15OI13 TP (08:55)
[2023-03-19] MEDS ORDERED: EZET10TA49 PO (08:55)
[2023-03-19] MEDS ORDERED: INUL2TAB8 PO (08:55)
[2023-03-19] MEDS ORDERED: BETA15CR4 TP (08:55)
== END 2023-03-19 09:20 | disposition home or self-care (01) ==
LOC: PREOP 05:28
PROVIDERS: ATTEND Orthopaedic Surgery
DX: Z01.818 Encounter for other preprocedural examination (principal)

== ENCOUNTER 2023-03-20 04:14 | Emergency (ER) | payer MEDICARE ==
[~2023-03-20] VITALS: Ht 167.7 cm; Wt 112.0 kg
[~2023-03-20 04:14] MED LIST changes: +BETA15CR4 TP; +INUL2TAB8 PO; +NYST15OI13 TP
[2023-03-20 04:18] VITALS: BP 100/85
--- NOTE | 2023-03-20 04:22 | ED Fall/Injury ---
General Chief Complaint: Hip/Pelvic Problems Stated Complaint: FALLING Source: patient, EMS Exam Limitations: no limitations History of Present Illness Date Seen by Provider: Mar 20, 2023 Time Seen by Provider: 04:22 Initial Comments Patient is a 77-year-old female who arrives to the emergency room by ambulance chief complaint fall at home. She has had multiple recent falls suffering a fracture to her right forearm that is scheduled for operative repair this March 22. She states her daughter was trying to assist her out of her chair when she slipped and fell landing on her left hip. She is complaining of lateral left hip pain. On physical examination she also was noted to have a laceration between the fourth and fifth toes on the right foot. She is normally anticoagulated on Xarelto. She has stopped this in anticipation of her surgery on Wednesday. She denies hitting her head or loss of consciousness. No chest pain or shortness of breath. No abdominal pain. She is wearing a cast and sling to the right upper extremity currently with very obvious swelling to the hand and bluish discoloration consistent with ecchymosis. She is awake alert and oriented. No significant distress at this time. Vital signs are stable. Occurred: just prior to arrival Severity: moderate Injuries/Pain Location: pelvis (Left hip) Context: slipped Loss of Consciousness: no loss of consciousness Modifying Factors: Improves With Immobilization; Worse With Jarring, Worse With Movement Associated Symptoms (Fall): Denies Symptoms Allergies and Home Medications Allergies Coded Allergies: sulfamethoxazole (Verified Allergy, Severe, Hives, 03/19/23) trimethoprim (Verified Allergy, Severe, Hives, 03/19/23) adhesive (Verified Allergy, Intermediate, Rash, 03/19/23) Iodinated Contrast Media (Unverified Allergy, Mild, NAUSEA, 03/19/23) Pt states it's the IV dye used in heart tests not CT scans penicillin G (Verified Allergy, Mild, RASH, 03/19/23) RASH Patient Home Medication List Home Medication List Reviewed: Yes Amlodipine Besylate (Amlodipine Besylate) 5 Mg Tablet, 5 MG PO DAILY, (Reported) Entered as Reported by: ELLIE LAUGHLIN on 08/14/19 1330 Atorvastatin Calcium (Atorvastatin Calcium) 40 Mg Tablet, 40 MG PO DAILY, (Reported) Entered as Reported by: ELLIE LAUGHLIN on 08/14/19 1337 Cetirizine HCl (Cetirizine HCl) 10 Mg Tablet, 10 MG PO DAILY, (Reported) Entered as Reported by: ELLIE LAUGHLIN on 01/10/21 1045 Cholecalciferol (Vitamin D3) (Vitamin D3) 25 Mcg (1000 Unit) Capsule, 25 MCG PO DAILY, (Reported) Entered as Reported by: ELLIE LAUGHLIN on 03/23/23 1220 Cyanocobalamin (Vitamin B-12) (Vitamin B-12) 500 Mcg Tablet, 500 MCG PO DAILY, (Reported) Entered as Reported by: ELLIE LAUGHLIN on 03/23/23 1220 Ezetimibe (Ezetimibe) 10 Mg Tablet, 10 MG PO DAILY, (Reported) Entered as Reported by: Lenora Guzman on 03/19/23 0855 Furosemide (Furosemide) 20 Mg Tablet, 20 MG PO DAILY, (Reported) Entered as Reported by: MARY PERRY on 02/29/20 08 Gabapentin (Neurontin) 300 Mg Capsule, 600 MG PO BID PRN for PAIN-BREAKTHROUGH, (Reported) Entered as Reported by: ELLIE LAUGHLIN on 01/10/21 1045 Inulin/Chromium Picolinate (Fiber Select Gummies Tab Chew) 2 Gram-100 Mcg Tab.chew, 1 EACH PO DAILY, (Reported) Entered as Reported by: ELLIE LAUGHLIN on 03/23/23 1220 Metoprolol Tartrate (Metoprolol Tartrate) 25 Mg Tablet, 25 MG PO BID, (Reported) Entered as Reported by: ELLIE LAUGHLIN on 01/10/21 1132 Omeprazole (Omeprazole) 20 Mg Capsule.dr, 20 MG PO HS, (Reported) Entered as Reported by: NIYAH SHELLEY on 03/10/17 0929 Oxybutynin Chloride (Oxybutynin Chloride ER) 10 Mg Tab.er.24, 10 MG PO DAILY, (Reported) Entered as Reported by: MARY PERRY on 02/29/20 08 Paroxetine HCl (Paroxetine HCl) 40 Mg Tablet, 40 MG PO DAILY, (Reported) Entered as Reported by: ELLIE LAUGHLIN on 08/14/19 1337 Potassium Chloride (Klor-Con M10) 10 Meq Tab.er.prt, 10 MEQ PO DAILY, (Reported) Entered as Reported by: NIYAH SHELLEY on 03/10/17 0930 Rivaroxaban (Xarelto) 20 Mg Tablet, 20 MG PO DAILY, (Reported) Entered as Reported by: ELLIE LAUGHLIN on 01/10/21 1045 Terazosin HCl (Terazosin HCl) 5 Mg Capsule, 5 MG PO DAILY, (Reported) Entered as Reported by: NIYAH SHELLEY on 08/25/16 1315 Tramadol HCl (Tramadol HCl) 50 Mg Tablet, 50 MG PO Q8H PRN for PAIN-MODERATE (5- 7), (Reported) Entered as Reported by: ELLIE LAUGHLIN on 03/23/23 1220 Trazodone HCl (Trazodone HCl) 50 Mg Tablet, 50 MG PO HS, (Reported) Entered as Reported by: ELLIE LAUGHLIN on 08/14/19 1330 Valsartan (Valsartan) 160 Mg Tablet, 160 MG PO DAILY, (Reported) Entered as Reported by: ELLIE LAUGHLIN on 08/14/19 1337 Zolpidem Tartrate (Ambien) 10 Mg Tablet, 10 MG PO HS, (Reported) Entered as Reported by: NIYAH SHELLEY on 08/25/16 1322 Discontinued Medications Albuterol Sulfate (Ventolin Hfa) 1 Puff Puff, 2 PUFF IH Q4H PRN for SHORTNESS OF BREATH, (Reported) Discontinued Reason: No Longer Taking Entered as Reported by: ELLIE LAUGHLIN on 01/10/21 1045 Betamethasone Dipropionate (Betamethasone Dipropionate) 0.05 % Cream..g., 15 GM TP NEEDED, (Reported) Discontinued Reason: No Longer Taking Entered as Reported by: Lenora Guzman on 03/19/23 0855 Cholecalciferol (Vitamin D3) (Vitamin D3) 50 Mcg Capsule, 50 MCG PO DAILY, (Reported) Discontinued Reason: Prescription changed Entered as Reported by: ADI RIVERA on 11/28/19 0932 Inulin (Fiber Gummies) 2 Gram Tab.chew, 2 GM PO DAILY, (Reported) Discontinued Reason: Prescription changed Entered as Reported by: Lenora Guzman on 03/19/23 0855 Lactobacillus Acidophilus (Probiotic) 1 Each Capsule, 1 EACH PO DAILY, (Reported) Discontinued Reason: No Longer Taking Entered as Reported by: MARY PERRY on 02/29/20 0821 Nystatin (Nystatin) 100,000 Unit/Gram Oint...g., 15 GM TP NEEDED, (Reported) Discontinued Reason: No Longer Taking Entered as Reported by: Lenora Guzman on 03/19/23 0855 Tiotropium [place] (Spiriva) 1 Inh Aerp, 1 INH IH DAILY, (Reported) Discontinued Reason: No Longer Taking Entered as Reported by: ELLIE LAUGHLIN on 01/10/21 1046 Review of Systems Review of Systems Constitutional: see HPI Respiratory: no symptoms reported Cardiovascular: no symptoms reported Gastrointestinal: no symptoms reported Genitourinary: no symptoms reported Musculoskeletal: joint pain (Left hip) Skin: no symptoms reported Past Dsmlffk-Pfvgur-Cupbao Hx Immunizations Up To Date Tetanus Booster (TDap): Unknown PED Vaccines UTD: No First/Initial COVID19 Vaccinat: Second COVID19 Vaccination Viral: 12/21/20 Third COVID19 Vaccination Date: 06/23/21 Seasonal Allergies Seasonal Allergies: No Past Medical History Surgery/Hospitalization HX: COPD, CABG, A-FIB Surgeries: Yes (HERNIA REPAIR; EGD; VIANCA/CARDIOVERSION, CATARACT, CABG X3, BLADDER SLING) Abdominal, Appendectomy, Cardiac, CABG, Eye Surgery, Gallbladder, Hysterectomy Respiratory: Yes (O2 3L, DYSPNEA ) Asthma, Sleep Apnea, COPD Currently Using CPAP: No Currently Using BIPAP: No Cardiac: Yes (SINUS NODE DYSFUNCTION, ANTERIOR WALL CHEST PAIN, AAA) Aneurysm, Atrial Fibrillation, Coronary Artery Disease, High Cholesterol, Hypertension, Palpitations Neurological: No Reproductive Disorders: No Female Reproductive Disorders: Menstrual Problems [employer]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[employer] History: Hysterectomy, Menopausal Sexually Transmitted Disease: No HIV/AIDS: No Genitourinary: Yes (URGENCY) UTI-Chronic Gastrointestinal: Yes Abdominal Hernia, Gastroesophageal Reflux, Gall Bladder Disease Musculoskeletal: Yes (hx fx left wrist, lower back disc ) Degenerate Disk Disease, Arthritis, Chronic Back Pain, Fractures Endocrine: No HEENT: Yes (GLASSES, DENTURES) Cataract Loss of Vision: Denies Hearing Impairment: Hard of Hearing Cancer: No Psychosocial: Yes Anxiety, Depression Integumentary: No Blood Disorders: No Adverse Reaction/Blood Tranf: No (N/A) Family Medical History Arthritis Cardiovascular disease 19 FATHER 19 MOTHER G8 BROTHER FH: [facility] (myocardial infarction) 19 FATHER ( at 67 from [facility]) 19 MOTHER ( at 39 from [facility]) Hypertension CAD Over 55 Years Old Physical Exam Vital Signs Vital Signs - First Documented 03/20/23 04:18 Temp 37.0 Pulse 73 Resp 16 B/P (MAP) 100/85 (90) Pulse Ox 95 O2 Delivery Nasal Cannula O2 Flow Rate 2.00 Capillary Refill : Height, Weight, BMI Height: 5'6.00" Weight: 254lbs. 0.0oz. 115.874166sb; 39.19 BMI Method:Stated General Appearance: WD/WN, no apparent distress, obese HEENT: PERRL/EOMI Respiratory: lungs clear, normal breath sounds, no respiratory distress, no accessory muscle use Gastrointestinal: non tender, soft Extremities: other (Decreased range of motion left hip secondary to pain. Tenderness to palpation left lateral hip. Distal neurovascularly intact to the left lower extremity.) Neurologic/Psychiatric: alert, normal mood/affect Skin: normal color, warm/dry, other (Patient has 2 cm laceration to the webspace between the fourth and fifth toe on the right foot, minimal oozing of blood noted. She also has bluish ecchymotic discoloration of the second toe of the right foot. The toe is nonpainful to manipulation.) Procedures/Interventions Wound Location: Lower Extremities Other Wound Location right foot between 4/5th toes Wound Length (cm): 2 Wound's Depth, Shape: superficial Wound Explored: clean Irrigated w/ Saline (ccs): 250 Anesthesia: 1% Lidocaine Volume Anesthetic (ccs): 3 Suture: Prolene Suture Size: 4-0 Number of Sutures: 5 Layer Closure?: 1 Number Deep Layer Sutures: 0 Sterile Dressing Applied?: Yes Progress/Results/Core Measures Results/Orders My Orders Orders - BRETT ROBB MD Pelvis With Left Hip 2-3 Views (03/20/23 04:22) Lidocaine 1% Inj 20 Ml (Xylocaine 1% Inj (03/20/23 04:45) Lidocaine 1% Inj 10 Ml (Xylocaine 1% Inj (03/20/23 04:52) Gabapentin Capsule (Gabapentin Capsule) (03/20/23 05:30) Medications Given in ED Vital Signs/I&O 03/20/23 04:18 Temp 37.0 Pulse 73 Resp 16 B/P (MAP) 100/85 (90) Pulse Ox 95 O2 Delivery Nasal Cannula O2 Flow Rate 2.00 Progress Progress Note : Time: 05:49 Progress Note Patient seen and evaluated by me. Evaluation today includes physical exam, pelvis x-ray with left hip x-rays. Pertinent physical exam findings well- developed well-nourished obese female in mild distress due to hip pain. Heart is regular, lungs are clear, abdomen is soft. Patient has tenderness to palpation to the lateral left hip. She does seem slightly shortened on the left lower extremity with some external rotation. Distal pulses are intact to the left foot. Normal sensation. She is noted to have a few centimeter laceration between the fourth and fifth toes of the right foot. Minimal bleeding is noted. No other injury appreciated to the right foot. Differential diagnosis based on history and physical exam left hip fracture, pelvic fracture, hip contusion X-rays independently reviewed and interpreted by me. Pelvis x-ray does not appear to have any acute abnormality, fractures or dislocations. Dedicated views of the left hip also appear normal. After pain management the patient was taken through range of motion at the left hip and this was normal. She had no significant discomfort. After adequate anesthesia to the laceration of the right foot with 1% lidocaine, 5 sutures were placed in the laceration with out difficulty. Bleeding was controlled. Dressing was applied. Discussed follow- up with the patient regarding her forearm fracture, she is scheduled to see her orthopedic surgeon within the next couple of days. Advised her to make sure that she let him know she has an open wound to her right foot. Daughter is present at the bedside and verbalized understanding of the plan of care. All questions are sought and answered. Patient is stable for discharge. Diagnostic Imaging Diagonstic Imaging: Xray Comments X-ray pelvis and left hip independently reviewed and interpreted by me, no fracture or dislocation noted to the left hip Departure Impression Primary Impression: Contusion of hip Qualified Codes: S70.02XA - Contusion of left hip, initial encounter Additional Impression: Laceration of foot, right Qualified Codes: S91.311A - Laceration without foreign body, right foot, initial encounter Disposition: HOME, SELF-CARE Condition: Stable Departure-Patient Inst. Decision time for Depature: 05:49 Referrals: BIBIANA KAPADIA MD (PCP/Family) Primary Care Physician Patient Instructions: Laceration Repair With Stitches (DC) Add. Discharge Instructions: Continue your daily pain medication as needed for your wrist pain and now hip pain. Keep a dry dressing over the stitches. You can put Neosporin or other triple antibiotic ointment over the stitches twice daily for 2 or 3 days. Be sure when you wash the area that you dry it thoroughly. You can split the tramadol tablets in half and take 1 every 6 hours as needed. Be sure and take a daily stool softener while having to take this medication as it can cause constipation. The stitches in your right foot will need to be removed in 2 weeks. Your primary care doctor can do this or you can come back to the emergency department and one of our nurses will do it for you. It is considered a part of this vi sit. Monitor the wound between your fourth and fifth toe where the stitches are for fever, swelling, redness, drainage. If any of these develop please return to the emergency room for reevaluation of the wound. Be sure and let Dr. Anglin know on Wednesday morning that you have had a cut to your foot with stitches placed. This possibly could delay your wrist surgery. Copy Copies To 1: BIBIANA KAPADIA MD, KATHRYN M MD Mar 20, 2023 04:22
[2023-03-20] MEDS ORDERED: LIDOCAINE 1% INJ 20 ML VIAL INJ ONE (04:45)
[2023-03-20] MEDS ORDERED: LIDOCAINE 1% INJ 10 ML VIAL ONE (04:52)
[2023-03-20] MEDS ORDERED: GABAPENTIN 300 MG CAPSULE PO ONE (05:30)
--- NOTE | 2023-03-20 06:01 | Diagnostic Imaging Report ---
INDICATION: Left hip pain, fall. FINDINGS: AP pelvis and two-view left hip performed. There is bony demineralization, lumbar spondylosis and pelvic arthritis. Hip degenerative disease greater left. No femoral or acetabular fracture. There may be a fracture of the left superior pubic ramus but no displaced injury. No symphyseal or SI joint diastases. IMPRESSION: No hip fracture identified. Questionable irregularities to the left superior pubic ramus without joint separation, underlying bony demineralization and degenerative disease as chronic findings noted. Dictated by: Dictated on workstation # [id number]
== END 2023-03-20 06:25 | disposition home or self-care (01) ==
LOC: EDUNIT# 04:14 → ER 04:16
DX: S91.311A Laceration without foreign body, right foot, initial encounter (principal); S70.02XA Contusion of left hip, initial encounter; J44.9 Chronic obstructive pulmonary disease, unspecified; Z99.81 Dependence on supplemental oxygen; W07.XXXA Fall from chair, initial encounter; Y92.009 Unspecified place in unspecified non-institutional (private) residence as the place of occurrence of the external cause
CPT/HCPCS: 12001

== ENCOUNTER 2023-03-20 12:09 | Observation (INO) | payer MEDICARE ==
[~2023-03-20] VITALS: Ht 162.6 cm; Wt 106.3 kg
--- NOTE | 2023-03-20 12:27 | ED Fall/Injury ---
General Chief Complaint: Trauma-Non Activation Stated Complaint: FALL Source: patient, EMS Exam Limitations: no limitations History of Present Illness Date Seen by Provider: Mar 20, 2023 Time Seen by Provider: 12:06 Initial Comments 77-year-old female presents after a fall. Notably she has had 4 falls in the last 4 days. She states initially her fall was on Wednesday causing her to fracture her right wrist. She had another fall on in which she did not sustain any new injuries. She fell earlier this morning was actually discharged from emergency department about 630 this morning. She had another fall when she got home. She states she has a "back issue." She further states she has 3 vertebra in her low back that are broken and unable to be repaired per her report. She denies any loss of bowel or bladder control but has had weakness in her lower extremities and significant back pain since the injury. She denies any current new back pain. She did not hit her head or lose consciousness. She complains of increased swelling in her right fingers since her most recent fall.. All other systems reviewed and negative except documented per HPI. Voice recognition software was used to help create this chart Allergies and Home Medications Allergies Coded Allergies: sulfamethoxazole (Verified Allergy, Severe, Hives, 03/19/23) trimethoprim (Verified Allergy, Severe, Hives, 03/19/23) adhesive (Verified Allergy, Intermediate, Rash, 03/19/23) Iodinated Contrast Media (Unverified Allergy, Mild, NAUSEA, 03/19/23) Pt states it's the IV dye used in heart tests not CT scans penicillin G (Verified Allergy, Mild, RASH, 03/19/23) RASH Patient Home Medication List Home Medication List Reviewed: Yes Albuterol Sulfate (Ventolin Hfa) 1 Puff Puff, 2 PUFF IH Q4H PRN for SHORTNESS OF BREATH, (Reported) Entered as Reported by: ELLIE LAUGHLIN on 01/10/21 1045 Amlodipine Besylate (Amlodipine Besylate) 5 Mg Tablet, 5 MG PO DAILY, (Reported) Entered as Reported by: ELLIE LAUGHLIN on 08/14/19 1330 Atorvastatin Calcium (Atorvastatin Calcium) 40 Mg Tablet, 40 MG PO DAILY, (Reported) Entered as Reported by: ELLIE LAUGHLIN on 08/14/19 1337 Betamethasone Dipropionate (Betamethasone Dipropionate) 0.05 % Cream..g., 15 GM TP NEEDED, (Reported) Entered as Reported by: Lenora Guzman on 03/19/23 0855 Cetirizine HCl (Cetirizine HCl) 10 Mg Tablet, 10 MG PO DAILY, (Reported) Entered as Reported by: ELLIE LAUGHLIN on 01/10/21 1045 Cholecalciferol (Vitamin D3) (Vitamin D3) 50 Mcg Capsule, 50 MCG PO DAILY, (Reported) Entered as Reported by: ADI RIVERA on 11/28/19 0932 Ezetimibe (Ezetimibe) 10 Mg Tablet, 10 MG PO DAILY, (Reported) Entered as Reported by: Lenora Guzman on 03/19/23 0855 Fluticasone/Salmeterol (Advair 250-50 Diskus) 1 Each Blst.w.dev, 1 EACH IH BID, (Reported) Entered as Reported by: ELLIE LAUGHLIN on 08/14/19 1357 Furosemide (Furosemide) 20 Mg Tablet, 20 MG PO DAILY, (Reported) Entered as Reported by: MARY PERRY on 02/29/20 0821 Gabapentin (Neurontin) 300 Mg Capsule, 300 MG PO TID PRN for PAIN-BREAKTHROUGH, (Reported) Entered as Reported by: ELLIE LAUGHLIN on 01/10/21 1045 Inulin (Fiber Gummies) 2 Gram Tab.chew, 2 GM PO DAILY, (Reported) Entered as Reported by: Lenora Guzman on 03/19/23 0855 Lactobacillus Acidophilus (Probiotic) 1 Each Capsule, 1 EACH PO DAILY, (Reported) Entered as Reported by: MARY PERRY on 02/29/20 0821 Metoprolol Tartrate (Metoprolol Tartrate) 25 Mg Tablet, 25 MG PO BID, (Reported) Entered as Reported by: ELLIE LAUGHLIN on 01/10/21 1132 Nystatin (Nystatin) 100,000 Unit/Gram Oint...g., 15 GM TP NEEDED, (Reported) Entered as Reported by: Lenora Guzman on 03/19/23 0855 Omeprazole (Omeprazole) 20 Mg Capsule.dr, 20 MG PO HS, (Reported) Entered as Reported by: NIYAH SHELLEY on 03/10/17 0929 Oxybutynin Chloride (Oxybutynin Chloride ER) 10 Mg Tab.er.24, 10 MG PO DAILY, (Reported) Entered as Reported by: MARY PERRY on 02/29/20 0821 Paroxetine HCl (Paroxetine HCl) 40 Mg Tablet, 40 MG PO DAILY, (Reported) Entered as Reported by: ELLIE LAUGHLIN on 08/14/19 1337 Potassium Chloride (Klor-Con M10) 10 Meq Tab.er.prt, 10 MEQ PO DAILY, (Reported) Entered as Reported by: NIYAH SHELLEY on 03/10/17 0930 Rivaroxaban (Xarelto) 20 Mg Tablet, 20 MG PO DAILY, (Reported) Entered as Reported by: ELLIE LAUGHLIN on 01/10/21 1045 Terazosin HCl (Terazosin HCl) 5 Mg Capsule, 5 MG PO DAILY, (Reported) Entered as Reported by: NIYAH SHELLEY on 08/25/16 1315 Tiotropium [place] (Spiriva) 1 Inh Aerp, 1 INH IH DAILY, (Reported) Entered as Reported by: ELLIE LAUGHLIN on 01/10/21 1046 Trazodone HCl (Trazodone HCl) 50 Mg Tablet, 50 MG PO HS, (Reported) Entered as Reported by: ELLIE LAUGHLIN on 08/14/19 1330 Valsartan (Valsartan) 160 Mg Tablet, 160 MG PO DAILY, (Reported) Entered as Reported by: ELLIE LAUGHLIN on 08/14/19 1337 Zolpidem Tartrate (Ambien) 10 Mg Tablet, 10 MG PO HS, (Reported) Entered as Reported by: NIYAH SHELLEY on 08/25/16 1322 Review of Systems Review of Systems Constitutional: see HPI Past Frjqxew-Gwwfti-Esxhrf Hx Patient Social History Tobacco Use?: No Use of E-Cig and/or Vaping dev: No Substance use?: No Alcohol Use?: No Pt feels they are or have been: No Immunizations Up To Date Tetanus Booster (TDap): Unknown PED Vaccines UTD: No First/Initial COVID19 Vaccinat: Second COVID19 Vaccination Viral: 12/21/20 Third COVID19 Vaccination Date: 06/23/21 Seasonal Allergies Seasonal Allergies: No Past Medical History Surgery/Hospitalization HX: COPD, CABG, A-FIB Surgeries: Yes (HERNIA REPAIR; EGD; VIANCA/CARDIOVERSION, CATARACT, CABG X3, BLADDER SLING) Abdominal, Appendectomy, Cardiac, CABG, Eye Surgery, Gallbladder, Hysterectomy Respiratory: Yes (O2 3L, DYSPNEA ) Asthma, Sleep Apnea, COPD Currently Using CPAP: No Currently Using BIPAP: No Cardiac: Yes (SINUS NODE DYSFUNCTION, ANTERIOR WALL CHEST PAIN, AAA) Aneurysm, Atrial Fibrillation, Coronary Artery Disease, High Cholesterol, Hypertension, Palpitations Neurological: No Reproductive Disorders: No Female Reproductive Disorders: 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, 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 Sexually Transmitted Disease: No HIV/AIDS: No Genitourinary: Yes (URGENCY) UTI-Chronic Gastrointestinal: Yes Abdominal Hernia, Gastroesophageal Reflux, Gall Bladder Disease Musculoskeletal: Yes (hx fx left wrist, lower back disc ) Degenerate Disk Disease, Arthritis, Chronic Back Pain, Fractures Endocrine: No HEENT: Yes (GLASSES, DENTURES) Cataract Loss of Vision: Denies Hearing Impairment: Hard of Hearing Cancer: No Psychosocial: Yes Anxiety, Depression Integumentary: No Blood Disorders: No Adverse Reaction/Blood Tranf: No (N/A) Family Medical History Arthritis Cardiovascular disease 19 FATHER 19 MOTHER G8 BROTHER FH: [place] (myocardial infarction) 19 FATHER ( at 67 from [place]) 19 MOTHER ( at 39 from [place]) Hypertension CAD Over 55 Years Old Physical Exam Vital Signs Vital Signs - First Documented 03/20/23 12:09 Temp 38.6 Pulse 76 Resp 17 B/P (MAP) 88/66 (73) Pulse Ox 93 O2 Delivery Room Air Capillary Refill : Height, Weight, BMI Height: 5'6.00" Weight: 254lbs. 0.0oz. [id number]; 39.00 BMI Method:Stated General Appearance: WD/WN, no apparent distress HEENT: PERRL/EOMI, normal ENT inspection, TMs normal, pharynx normal Neck: non-tender, full range of motion, supple, normal inspection Cardiovascular: regular rate, rhythm, no murmur Respiratory: chest non-tender, lungs clear, normal breath sounds, no respiratory distress, no accessory muscle use Gastrointestinal: normal bowel sounds, non tender, soft Extremities: other (Right wrist is in a splint. There is swelling about her fingers on her right hand diffusely. Neurovascular motor and sensory intact. She has bruising to her third toe on the right foot. Her also sutures in the little toe on this foot from this morning.) Neurologic/Psychiatric: cane splicer II-XII nml as tested, no motor/sensory deficits, alert, normal mood/affect, oriented x 3 Skin: other (Findings as described above) Procedures/Interventions Suture Size: 4-0 Progress/Results/Core Measures Results/Orders Lab Results Laboratory Tests Test 03/20/23 13:15 Range/Units White Blood Count 8.2 4.3-11.0 10^3/uL Red Blood Count 3.73 L 3.80-5.11 10^6/uL Hemoglobin 11.5 11.5-16.0 g/dL Hematocrit 37 35-52 % Mean Corpuscular Volume 100 H 80-99 fL Mean Corpuscular Hemoglobin 31 25-34 pg Mean Corpuscular Hemoglobin Concent 31 L 32-36 g/dL Red Cell Distribution Width 15.2 H 10.0-14.5 % Platelet Count 205 130-400 10^3/uL Mean Platelet Volume 11.2 9.0-12.2 fL Immature Granulocyte % (Auto) 0 % Neutrophils (%) (Auto) 75 42-75 % Lymphocytes (%) (Auto) 12 12-44 % Monocytes (%) (Auto) 11 0-12 % Eosinophils (%) (Auto) 2 0-10 % Basophils (%) (Auto) 0 0-10 % Neutrophils # (Auto) 6.2 1.8-7.8 10^3/uL Lymphocytes # (Auto) 1.0 1.0-4.0 10^3/uL Monocytes # (Auto) 0.9 0.0-1.0 10^3/uL Eosinophils # (Auto) 0.1 0.0-0.3 10^3/uL Basophils # (Auto) 0.0 0.0-0.1 10^3/uL Immature Granulocyte # (Auto) 0.0 0.0-0.1 10^3/uL Sodium Level 138 135-145 MMOL/L Potassium Level 4.8 3.6-5.0 MMOL/L Chloride Level 104 98-107 MMOL/L Carbon Dioxide Level 25 21-32 MMOL/L Anion Gap 9 5-14 MMOL/L Blood Urea Nitrogen 11 7-18 MG/DL Creatinine 0.75 0.60-1.30 MG/DL Estimat Glomerular Filtration Rate 82 BUN/Creatinine Ratio 15 Glucose Level 96 70-105 MG/DL Calcium Level 8.3 L 8.5-10.1 MG/DL Total Bilirubin 1.2 H 0.1-1.0 MG/DL Direct Bilirubin 0.4 H 0.0-0.3 MG/DL Indirect Bilirubin 0.8 MG/DL Aspartate Amino Transf (AST/SGOT) 20 5-34 U/L Alanine Aminotransferase (ALT/SGPT) 12 0-55 U/L Alkaline Phosphatase 68 40-136 U/L Total Protein 6.1 L 6.4-8.2 GM/DL Albumin 3.3 3.2-4.5 GM/DL My Orders Orders - RODRIGUE DÍAZ DO Hand, Right, 3 Views (03/20/23 12:15) Foot, Right, 3 View (03/20/23 12:15) Basic Metabolic Panel (03/20/23 12:37) Iv/Invasive Line Insertion .IV INSERT (03/20/23 12:37) Cbc With Automated Diff (03/20/23 12:37) Ns Iv 1000 Ml (Ns Iv 1000 Ml) (03/20/23 12:45) Ed Admission (Communication) (03/20/23 13:02) Vital Signs/I&O 03/20/23 03/20/23 12:09 13:43 Temp 38.6 38.6 Pulse 76 74 Resp 17 17 B/P (MAP) 88/66 (73) 93/75 Pulse Ox 93 92 O2 Delivery Room Air Room Air Departure Communication (Admissions) Patient is hemodynamically stable. X-rays of her right hand showed no acute abnormality. X-rays right foot obtained due to swelling and bruising to her third toe. This is also negative for any acute abnormality. I have independently reviewed all the images. She is borderline hypotensive which she states is normal for her. Blood pressures in the 90s systolic. Given her frequent falls and current inability to ambulate and with concern for safety at home I went ahead and admitted her to the hospitalist. Dr. Cee graciously accepts the admission. Impression Primary Impression: Falls frequently Disposition: ADMITTED INPATIENT Condition: Stable Departure-Patient Inst. Referrals: BIBIANA KAPADIA MD (PCP/Family) Primary Care Physician RODRIGUE DÍAZ DO Mar 20, 2023 12:27
[2023-03-20] MEDS ORDERED: NS IV 1000 ML 1,000 ML IV SCH (12:45)
--- NOTE | 2023-03-20 12:51 | History & Physical ---
History of Present Illness HPI/Chief Complaint Chief complaint: Multiple falls in the past 4 days HPI: This is a 77-year-old female clinic patient of Dr. Spring who has a past medical history of CAD and atrial fibrillation who presented to the ER after falling for the second time within 12 hours. On Wednesday she fell and broke her right wrist which is scheduled to be repaired surgically by Dr. Anglin on Wednesday. Her labs reviewed no acute abnormality but due to the extensiveness and numerous falls she appears to be at high risk for decompensation and since she lives at home alone she will be admitted to the hospital for observation. 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 Patients Allergies have been reviewed. Allergies Allergies Coded Allergies sulfamethoxazole (Verified Allergy, Severe, Hives, 03/19/23) trimethoprim (Verified Allergy, Severe, Hives, 03/19/23) adhesive (Verified Allergy, Intermediate, Rash, 03/19/23) Iodinated Contrast Media (Unverified Allergy, Mild, NAUSEA, 03/19/23) Pt states it's the IV dye used in heart tests not CT scans penicillin G (Verified Allergy, Mild, RASH, 03/19/23) RASH Past Bxhdmfk-Cnhaln-Vlozah Hx Past Med/Social Hx: Reviewed Nursing Past Med/Soc Hx, Reviewed and Corrections made Patient Social History Marrital Status: single Employed/Student: retired Alcohol Use: Denies Use Smoking Status: Former Smoker Former Smoker, Quit: Aug 14, 1980 Type Used: Cigarettes 2nd Hand Smoke Exposure: No Recent Hopitalizations: No Immunizations Up To Date Tetanus Booster (TDap): Unknown Pediatric: No Date of Pneumonia Vaccine: Jun 23, 2021 Date of Influenza Vaccine: Apr 27, 2022 Seasonal Allergies Seasonal Allergies: No Past Medical History Surgeries: Abdominal, Appendectomy, Cardiac, CABG, Eye Surgery, Gallbladder, Hysterectomy Respiratory: Chronic Bronchitis, COPD Currently Using CPAP: No Currently Using BIPAP: No Cardiac: Aneurysm, Atrial Fibrillation, Coronary Artery Disease, High Cho lesterol, Hypertension, Palpitations Reproductive: No Sexually Transmitted Disease: No HIV/AIDS: No Female Reproductive Disorders: Menstrual Problems Hysterectomy, Menopausal Genitourinary: UTI-Chronic Gastrointestinal: Abdominal Hernia, Gastroesophageal Reflux, Gall Bladder Disease Musculoskeletal: Degenerate Disk Disease, Arthritis, Chronic Back Pain, Fractures HEENT: Cataract Loss of Vision: Denies Hearing Impairment: Hard of Hearing Psychosocial: Anxiety, Depression History of Blood Disorders: No Adverse Reaction to Blood Sandhu: No (N/A) Family History Arthritis Cardiovascular disease 19 FATHER 19 MOTHER G8 BROTHER FH: [place] (myocardial infarction) 19 FATHER ( at 67 from [place]) 19 MOTHER ( at 39 from [place]) Hypertension CAD Over 55 Years Old Review of Systems Constitutional: see HPI, weakness, other (Falls) Physical Exam Physical Exam Vital Signs Vital Signs - First Documented 03/20/23 03/20/23 12:09 14:06 Temp 38.6 Pulse 76 Resp 17 B/P (MAP) 88/66 (73) Pulse Ox 93 O2 Delivery Room Air O2 Flow Rate 1.50 Capillary Refill : Height, Weight, BMI Height: 5'6.00" Weight: 254lbs. 0.0oz. [id number]; 39.00 BMI Method:Stated General Appearance: No Apparent Distress, WD/WN, Chronically ill Eyes: Bilateral Eye Normal Inspection, Bilateral Eye PERRL HEENT: PERRL/EOMI, TMs Normal, Normal ENT Inspection, Pharynx Normal Neck: Full Range of Motion, Normal Inspection, Non Tender, Supple, Carotid Bruit Respiratory: Chest Non Tender, Lungs Clear, Normal Breath Sounds, No Accessory Muscle Use, No Respiratory Distress Cardiovascular: Regular Rate, Rhythm, No Edema, No Gallop, No JVD, No Murmur, Normal Peripheral Pulses Gastrointestinal: Normal Bowel Sounds, No Organomegaly, No Pulsatile Mass, Non Tender, Soft Back: Normal Inspection, No CVA Tenderness, No Vertebral Tenderness Extremity: Normal Capillary Refill, Normal Inspection, Normal Range of Motion ( right arm in splint), Non Tender, No Calf Tenderness, No Pedal Edema Neurologic/Psychiatric: Alert, Oriented x3, No Motor/Sensory Deficits, Normal Mood/Affect Skin: Normal Color, Warm/Dry Lymphatic: No Adenopathy Results Results/Procedures Labs Laboratory Tests 03/20/23 13:15 Patient resulted labs reviewed. Assessment/Plan Admission Diagnosis Assessment: Multiple falls Weakness Right wrist fracture 3 days ago set for surgical repair on Wednesday by Dr. Anglin Atrial fibrillation CAD Hypertension COPD Chronic bronchitis Plan: Pain control Supportive care Fall risk Admission Status: Observation JAIR GONSALES DO Mar 20, 2023 12:51
--- NOTE | 2023-03-20 13:23 | Diagnostic Imaging Report ---
EXAMINATION: Right hand radiographs, 3 views. COMPARISON: None. HISTORY: 77-year-old female, fall. Right hand pain. FINDINGS: The bones appear likely demineralized. There is a comminuted displaced distal radial metaphyseal fracture. There is no identified intra-articular fracture extension at the radiocarpal articulation. There is a displaced fracture of the ulnar styloid. There is overlying cast material. There is no widening of the scapholunate or lunotriquetral intervals. IMPRESSION: 1. Redemonstrated comminuted displaced distal radial metaphyseal fracture with unchanged fracture alignment. 2. Redemonstrated displaced fracture of the ulnar styloid with unchanged alignment. 3. Interval placement of overlying cast material. Dictated by: Dictated on workstation # [id number]
[2023-03-20 13:26] LABS: BASOPHILS % (AUTO) 0 % (0-10); EOSINOPHILS # (AUTO) 0.1 10^3/uL (0.0-0.3); EOSINOPHILS % (AUTO) 2 % (0-10); HEMATOCRIT 37 % (35-52); HEMOGLOBIN 11.5 g/dL (11.5-16.0); LYMPHOCYTES % (AUTO) 12 % (12-44); MEAN CORPUSCULAR HEMOGLOBIN 31 pg (25-34); MEAN CORPUSCULAR HGB CONC 31 g/dL (32-36); MEAN CORPUSCULAR VOLUME 100 fL (80-99); MEAN PLATELET VOLUME 11.2 fL (9.0-12.2); MONOCYTES # (AUTO) 0.9 10^3/uL (0.0-1.0); MONOCYTES % (AUTO) 11 % (0-12); NEUTROPHILS # (AUTO) 6.2 10^3/uL (1.8-7.8); NEUTROPHILS % (AUTO) 75 % (42-75); PLATELET COUNT 205 10^3/uL (130-400); WHITE BLOOD COUNT 8.2 10^3/uL (4.3-11.0)
--- NOTE | 2023-03-20 13:29 | Diagnostic Imaging Report ---
INDICATION: Fall with injury to the right foot and pain. COMPARISON: No priors. FINDINGS: Three-view right foot performed. There is bony demineralization. Some soft tissue dressing about the forefoot and likely opaque socks being worn. Bony demineralization with the overlying artifact limits sensitivity. No appreciable fracture deformity or dislocation. There are arthritic changes to the ankle, hind, mid, and forefoot. There is plantar calcaneal spurring, chronic. IMPRESSION: Limited by bony demineralization and radiopacities associated with foot dressing, no visible fracture or dislocation. Dictated by: Dictated on workstation # [id number]
[2023-03-20 13:47] LABS: POTASSIUM 4.8 MMOL/L (3.6-5.0)
[2023-03-20 13:48] LABS: CALCIUM 8.3 MG/DL (8.5-10.1)
[2023-03-20 13:52] LABS: CREATININE SERUM 0.75 MG/DL (0.60-1.30)
[2023-03-20] MEDS ORDERED: LACTULOSE SYRUP 10GM/15ML 30ML UDC PO PRN (14:00)
[2023-03-20] MEDS ORDERED: diphenhydrAMINE 25 MG TABLET PO PRN (14:00)
[2023-03-20] MEDS ORDERED: ANTACID SUSPENSION 30 ML UDC PO PRN (14:00)
[2023-03-20] MEDS ORDERED: ONDANSETRON 4 MG ORAL DISSOLVE TABLET PO PRN (14:00)
[2023-03-20] MEDS ORDERED: MILK OF MAGNESIA 400 MG/5 ML 30 ML UDC PO PRN (14:00)
[2023-03-20] MEDS ORDERED: BISACODYL 10 MG SUPPOSITORY PR PRN (14:00)
[2023-03-20] MEDS ORDERED: diphenhydrAMINE INJ 50 MG/ML VIAL IVP PRN (14:00)
[2023-03-20] MEDS ORDERED: CALCIUM CARBONATE 500 MG CHEW TABLET PO PRN (14:00)
[2023-03-20] MEDS ORDERED: ONDANSETRON INJECTION 4 MG/2 ML (SDV) IV PRN (14:00)
[2023-03-20 14:06] VITALS: BP 116/59
[2023-03-20 14:40] LABS: ALBUMIN 3.3 GM/DL (3.2-4.5)
[2023-03-20 14:42] LABS: TOTAL PROTEIN 6.1 GM/DL (6.4-8.2)
[2023-03-20 14:44] LABS: BILIRUBIN,TOTAL 1.2 MG/DL (0.1-1.0)
[2023-03-20 14:48] LABS: BILIRUBIN,DIRECT 0.4 MG/DL (0.0-0.3); BILIRUBIN,INDIRECT 0.8 MG/DL
[2023-03-20 15:46] VITALS: BP 131/73
[2023-03-20] MEDS: NS IV 1000 ML 1,000 ML IV SCH (15:53)
[2023-03-20 16:19] VITALS: BP 131/73
[2023-03-20] MEDS ORDERED: RT-Ipratropium/Albuterol NEB 3 ML VIAL INH PRN (16:30)
[2023-03-20] MEDS ORDERED: RIVAROXABAN 20 MG TABLET PO SCH (17:00)
[2023-03-20 19:33] VITALS: BP 96/61
[2023-03-20] MEDS: MELATONIN 3 MG TABLET PO PRN (20:15)
[2023-03-20] MEDS: DOCUSATE SODIUM 100 MG CAPSULE PO SCH (20:15)
[2023-03-20] MEDS: oxyCODONE IMMEDIATE RELEASE 5 MG TABLET PO PRN (20:15)
[2023-03-20] MEDS: SENNOSIDES 8.6 MG TABLET PO SCH (20:15)
[2023-03-20] MEDS: GABAPENTIN 300 MG CAPSULE PO PRN (20:16)
[2023-03-20 23:59] VITALS: BP 98/56
[2023-03-21 04:00] VITALS: BP 117/55
[2023-03-21] MEDS: NS IV 1000 ML 1,000 ML IV SCH (04:17)
[2023-03-21 05:51] LABS: BASOPHILS % (AUTO) 0 % (0-10); EOSINOPHILS # (AUTO) 0.4 10^3/uL (0.0-0.3); EOSINOPHILS % (AUTO) 5 % (0-10); HEMATOCRIT 33 % (35-52); HEMOGLOBIN 10.4 g/dL (11.5-16.0); LYMPHOCYTES # (AUTO) 1.2 10^3/uL (1.0-4.0); LYMPHOCYTES % (AUTO) 17 % (12-44); MEAN CORPUSCULAR HEMOGLOBIN 30 pg (25-34); MEAN CORPUSCULAR HGB CONC 31 g/dL (32-36); MEAN CORPUSCULAR VOLUME 95 fL (80-99); MEAN PLATELET VOLUME 10.5 fL (9.0-12.2); MONOCYTES # (AUTO) 0.8 10^3/uL (0.0-1.0); MONOCYTES % (AUTO) 11 % (0-12); NEUTROPHILS # (AUTO) 4.8 10^3/uL (1.8-7.8); NEUTROPHILS % (AUTO) 66 % (42-75); PLATELET COUNT 175 10^3/uL (130-400); WHITE BLOOD COUNT 7.2 10^3/uL (4.3-11.0)
[2023-03-21 06:05] LABS: ALBUMIN 2.9 GM/DL (3.2-4.5)
[2023-03-21 06:07] LABS: CALCIUM 7.9 MG/DL (8.5-10.1)
[2023-03-21 06:08] LABS: TOTAL PROTEIN 5.3 GM/DL (6.4-8.2)
[2023-03-21 06:10] LABS: BILIRUBIN,TOTAL 1.4 MG/DL (0.1-1.0)
[2023-03-21 06:11] LABS: CREATININE SERUM 0.71 MG/DL (0.60-1.30)
--- NOTE | 2023-03-21 06:23 | Progress Note ---
Subjective Date Seen by a Provider: Mar 21, 2023 Time Seen by a Provider: 11:00 Subjective/Events-last exam Patient doing well Pain is controlled Right foot x-ray reviewed with family Dr. Anglin will perform surgery tomorrow Review of Systems General: Fatigue, Malaise Musculoskeletal: arm pain Objective Exam Last Set of Vital Signs Vital Signs Date Time Temp Pulse Resp B/P (MAP) Pulse Ox O2 Delivery O2 Flow Rate FiO2 03/21/23 04:00 36.4 79 17 117/55 (75) 89 Room Air 03/20/23 15:02 1.00 Capillary Refill : I&O Intake and Output 03/20/23 23:59 Intake Total 710 ml Output Total 650 ml Balance 60 ml Intake Oral 710 ml Output Urine Total 650 ml # Urine Diapers 1 Daily Weight Change Yes, Greater than 33 lbs General: Alert, Oriented X3, Cooperative, No Acute Distress Lungs: Clear to Auscultation, Normal Air Movement Heart: Regular Rate, Normal S1, Normal S2, No Murmurs Psych/Mental Status: Mental Status NL, Mood NL Results Lab Laboratory Tests 03/20/23 13:15: White Blood Count 8.2, Red Blood Count 3.73L, Hemoglobin 11.5, Hematocrit 37, Mean Corpuscular Volume 100H, Mean Corpuscular Hemoglobin 31, Mean Corpuscular Hemoglobin Concent 31L, Red Cell Distribution Width 15.2H, Platelet Count 205, Mean Platelet Volume 11.2, Immature Granulocyte % (Auto) 0, Neutrophils (%) (Auto) 75, Lymphocytes (%) (Auto) 12, Monocytes (%) (Auto) 11, Eosinophils (%) (Auto) 2, Basophils (%) (Auto) 0, Neutrophils # (Auto) 6.2, Lymphocytes # (Auto) 1.0, Monocytes # (Auto) 0.9, Eosinophils # (Auto) 0.1, Basophils # (Auto) 0.0, Immature Granulocyte # (Auto) 0.0, Sodium Level 138, Potassium Level 4.8, Chloride Level 104, Carbon Dioxide Level 25, Anion Gap 9, Blood Urea Nitrogen 11, Creatinine 0.75, Estimat Glomerular Filtration Rate 82, BUN/Creatinine Ratio 15, Glucose Level 96, Calcium Level 8.3L, Total Bilirubin 1.2H, Direct Bilirubin 0.4H, Indirect Bilirubin 0.8, Aspartate Amino Transf (AST/SGOT) 20, Alanine Aminotransferase (ALT/SGPT) 12, Alkaline Phosphatase 68, Total Protein 6.1L, Albumin 3.3 03/21/23 05:40: White Blood Count 7.2, Red Blood Count 3.48L, Hemoglobin 10.4L, Hematocrit 33L, Mean Corpuscular Volume 95, Mean Corpuscular Hemoglobin 30, Mean Corpuscular Hemoglobin Concent 31L, Red Cell Distribution Width 14.9H, Platelet Count 175, Mean Platelet Volume 10.5, Immature Granulocyte % (Auto) 0, Neutrophils (%) (Auto) 66, Lymphocytes (%) (Auto) 17, Monocytes (%) (Auto) 11, Eosinophils (%) (Auto) 5, Basophils (%) (Auto) 0, Neutrophils # (Auto) 4.8, Lymphocytes # (Auto) 1.2, Monocytes # (Auto) 0.8, Eosinophils # (Auto) 0.4H, Basophils # (Auto) 0.0, Immature Granulocyte # (Auto) 0.0, Sodium Level 138, Potassium Level 4.0, Chloride Level 106, Carbon Dioxide Level 26, Anion Gap 6, Blood Urea Nitrogen 10, Creatinine 0.71, Estimat Glomerular Filtration Rate 88, BUN/Creatinine Ratio 14, Glucose Level 101, Calcium Level 7.9L, Total Bilirubin 1.4H, Aspartate Amino Transf (AST/SGOT) 15, Alanine Aminotransferase (ALT/SGPT) 9, Alkaline Phospha tase 63, Total Protein 5.3L, Albumin 2.9L, Corrected Calcium 8.8 Assessment/Plan Assessment/Plan Assess & Plan/Chief Complaint Assessment: Multiple falls Weakness Right wrist fracture 3 days ago set for surgical repair on Wednesday by Dr. Anglin Atrial fibrillation CAD Hypertension COPD Chronic bronchitis Plan: Pain control Supportive care Fall risk JAIR GONSALES DO Mar 21, 2023 06:22
[2023-03-21 07:24] VITALS: BP 117/55
[2023-03-21] MEDS: SENNOSIDES 8.6 MG TABLET PO SCH ×2 (09:08→20:16)
[2023-03-21] MEDS: DOCUSATE SODIUM 100 MG CAPSULE PO SCH ×2 (09:08→20:16)
[2023-03-21] MEDS: GABAPENTIN 300 MG CAPSULE PO PRN (09:08)
[2023-03-21] MEDS: oxyCODONE IMMEDIATE RELEASE 5 MG TABLET PO PRN ×3 (09:12→20:17)
[2023-03-21 11:19] VITALS: BP 101/66
[2023-03-21] MEDS: ACETAMINOPHEN 325 MG TABLET PO PRN (14:02)
[2023-03-21 15:39] VITALS: BP 102/66
[2023-03-21] MEDS ORDERED: ceFAZolin INJECTION 2,000 MG in NS (IVPB) 50 ML 50 ML IV ONE (16:00)
[2023-03-21] MEDS: MELATONIN 3 MG TABLET PO PRN (20:16)
[2023-03-21] MEDS: MICONAZOLE 2% POWDER 90 GM TOP SCH (20:17)
[2023-03-21 20:20] VITALS: BP 116/73
[2023-03-21 23:04] VITALS: BP 98/64
[2023-03-22] MEDS: GABAPENTIN 300 MG CAPSULE PO PRN ×2 (02:11→23:52)
[2023-03-22] MEDS: oxyCODONE IMMEDIATE RELEASE 5 MG TABLET PO PRN ×2 (02:11→18:38)
[2023-03-22 03:01] VITALS: BP 121/77
[2023-03-22 05:45] LABS: BASOPHILS % (AUTO) 0 % (0-10); EOSINOPHILS # (AUTO) 0.5 10^3/uL (0.0-0.3); EOSINOPHILS % (AUTO) 5 % (0-10); HEMATOCRIT 34 % (35-52); HEMOGLOBIN 10.9 g/dL (11.5-16.0); LYMPHOCYTES # (AUTO) 0.7 10^3/uL (1.0-4.0); LYMPHOCYTES % (AUTO) 9 % (12-44); MEAN CORPUSCULAR HEMOGLOBIN 30 pg (25-34); MEAN CORPUSCULAR HGB CONC 32 g/dL (32-36); MEAN CORPUSCULAR VOLUME 94 fL (80-99); MEAN PLATELET VOLUME 10.7 fL (9.0-12.2); MONOCYTES # (AUTO) 0.8 10^3/uL (0.0-1.0); MONOCYTES % (AUTO) 10 % (0-12); NEUTROPHILS # (AUTO) 6.5 10^3/uL (1.8-7.8); NEUTROPHILS % (AUTO) 76 % (42-75); PLATELET COUNT 206 10^3/uL (130-400); WHITE BLOOD COUNT 8.6 10^3/uL (4.3-11.0)
[2023-03-22 06:01] LABS: POTASSIUM 4.2 MMOL/L (3.6-5.0)
[2023-03-22 06:03] LABS: CALCIUM 8.5 MG/DL (8.5-10.1)
[2023-03-22 06:04] LABS: TOTAL PROTEIN 5.6 GM/DL (6.4-8.2)
[2023-03-22 06:08] LABS: CREATININE SERUM 0.71 MG/DL (0.60-1.30)
[2023-03-22] MEDS: DOCUSATE SODIUM 100 MG CAPSULE PO SCH ×3 (07:28→21:55)
[2023-03-22] MEDS: SENNOSIDES 8.6 MG TABLET PO SCH ×3 (07:29→21:56)
[2023-03-22] MEDS: MICONAZOLE 2% POWDER 90 GM TOP SCH ×2 (07:33→21:56)
--- NOTE | 2023-03-22 07:40 | Physical Therapy Progress Note ---
Therapy Progress Note Patient to have surgery on this date. PT to evaluate patient 03/23/23 LEE CONNORS PT Mar 22, 2023 07:40
--- NOTE | 2023-03-22 08:23 | Consultation - Ortho ---
Consult - Ortho Subjective Date of Exam 03/22/23 Chief Complaint Fall/Wrist Injury Prior HPI/Events since last exam fall, admitted, previously postponed for ORIF due to cardiac clearance per anesthesia Medical, Surgical History see admit Social History see admit Family History see admit Review of Systems - Allergies: Coded Allergies: sulfamethoxazole (Verified Allergy, Severe, Hives, 03/19/23) trimethoprim (Verified Allergy, Severe, Hives, 03/19/23) adhesive (Verified Allergy, Intermediate, Rash, 03/19/23) Iodinated Contrast Media (Unverified Allergy, Mild, NAUSEA, 03/19/23) Pt states it's the IV dye used in heart tests not CT scans penicillin G (Verified Allergy, Mild, RASH, 03/19/23) RASH Home Meds Reported Medications Nystatin (Nystatin) 100,000 Unit/Gram Oint...g., 15 GM TP NEEDED, EA 03/19/23 Inulin (Fiber Gummies) 2 Gram Tab.chew, 2 GM PO DAILY, TAB 03/19/23 Ezetimibe (Ezetimibe) 10 Mg Tablet, 10 MG PO DAILY, TAB 03/19/23 Betamethasone Dipropionate (Betamethasone Dipropionate) 0.05 % Cream..g., 15 GM TP NEEDED, EA 03/19/23 Metoprolol Tartrate (Metoprolol Tartrate) 25 Mg Tablet, 25 MG PO BID, TAB 01/10/21 Tiotropium [place] (Spiriva) 1 Inh Aerp, 1 INH IH DAILY, INHALER 01/10/21 Rivaroxaban (Xarelto) 20 Mg Tablet, 20 MG PO DAILY, TAB 01/10/21 Cetirizine HCl (Cetirizine HCl) 10 Mg Tablet, 10 MG PO DAILY, TAB 01/10/21 Albuterol Sulfate (Ventolin Hfa) 1 Puff Puff, 2 PUFF IH Q4H PRN for SHORTNESS OF BREATH, PUFF 01/10/21 Gabapentin (Neurontin) 300 Mg Capsule, 300 MG PO TID PRN for PAIN-BREAKTHROUGH, CAP 01/10/21 Furosemide (Furosemide) 20 Mg Tablet, 20 MG PO DAILY, TAB 02/29/20 Lactobacillus Acidophilus (Probiotic) 1 Each Capsule, 1 EACH PO DAILY, CAP 02/29/20 Oxybutynin Chloride (Oxybutynin Chloride ER) 10 Mg Tab.er.24, 10 MG PO DAILY, TAB 02/29/20 Cholecalciferol (Vitamin D3) (Vitamin D3) 50 Mcg Capsule, 50 MCG PO DAILY, CAP 11/28/19 Fluticasone/Salmeterol (Advair 250-50 Diskus) 1 Each Blst.w.dev, 1 EACH IH BID 08/14/19 Paroxetine HCl (Paroxetine HCl) 40 Mg Tablet, 40 MG PO DAILY 08/14/19 Valsartan (Valsartan) 160 Mg Tablet, 160 MG PO DAILY 08/14/19 Atorvastatin Calcium (Atorvastatin Calcium) 40 Mg Tablet, 40 MG PO DAILY 08/14/19 Amlodipine Besylate (Amlodipine Besylate) 5 Mg Tablet, 5 MG PO DAILY, TAB 08/14/19 Trazodone HCl (Trazodone HCl) 50 Mg Tablet, 50 MG PO HS, TAB 08/14/19 Potassium Chloride (Klor-Con M10) 10 Meq Tab.er.prt, 10 MEQ PO DAILY 03/10/17 Omeprazole (Omeprazole) 20 Mg Capsule.dr, 20 MG PO HS, CAP 03/10/17 Zolpidem Tartrate (Ambien) 10 Mg Tablet, 10 MG PO HS, TAB 08/25/16 Terazosin HCl (Terazosin HCl) 5 Mg Capsule, 5 MG PO DAILY, CAP 08/25/16 Objective Exam right arm splinted Vital Signs Vital Signs Date Time Temp Pulse Resp B/P (MAP) Pulse Ox O2 Delivery O2 Flow Rate FiO2 03/22/23 03:01 36.3 99 20 121/77 (92) 92 Room Air 03/21/23 23:04 36.5 89 18 98/64 (75) 93 Room Air 03/21/23 20:57 Room Air 03/21/23 20:20 36.2 94 18 116/73 (87) 95 Nasal Cannula 2.00 03/21/23 20:20 Room Air 03/21/23 15:39 36.3 83 18 102/66 (78) 94 Room Air 03/21/23 11:19 36.4 92 17 101/66 (78) 90 Nasal Cannula 1.50 I & O 03/22/23 07:00 Intake Total 2150 ml Output Total 400 ml Balance 1750 ml Lab Results Laboratory Tests 03/22/23 05:35: White Blood Count 8.6, Red Blood Count 3.60L, Hemoglobin 10.9L, Hematocrit 34L, Mean Corpuscular Volume 94, Mean Corpuscular Hemoglobin 30, Mean Corpuscular Hemoglobin Concent 32, Red Cell Distribution Width 14.7H, Platelet Count 206, Mean Platelet Volume 10.7, Immature Granulocyte % (Auto) 1, Neutrophils (%) (Auto) 76H, Lymphocytes (%) (Auto) 9L, Monocytes (%) (Auto) 10, Eosinophils (%) (Auto) 5, Basophils (%) (Auto) 0, Neutrophils # (Auto) 6.5, Lymphocytes # (Auto) 0.7L, Monocytes # (Auto) 0.8, Eosinophils # (Auto) 0.5H, Basophils # (Auto) 0.0, Immature Granulocyte # (Auto) 0.0, Sodium Level 137, Potassium Level 4.2, Chloride Level 105, Carbon Dioxide Level 26, Anion Gap 6, Blood Urea Nitrogen 14, Creatinine 0.71, Estimat Glomerular Filtration Rate 88, BUN/Creatinine Ratio 20, Glucose Level 132H, Calcium Level 8.5, Corrected Calcium 9.3, Total Bilirubin 1.0, Aspartate Amino Transf (AST/SGOT) 13, Alanine Aminotransferase (ALT/SGPT) 10, Alkaline Phosphatase 66, Total Protein 5.6L, Albumin 3.0L Assessment and Plan Assessment Right Distal Radius Fracture Problem List Right Distal Radius Fracture Plan ORIF once cardiology consult obtained. Will not be going to surgery today. Final Diagonsis Right Distal Radius Fracture Level of the visit: Level 3 (global) AMBER MILLER MD Mar 22, 2023 08:23
[2023-03-22 08:40] VITALS: BP 122/68
--- NOTE | 2023-03-22 09:41 | Occupational Therapy Eval ---
OT Evaluation-General/PLF Medical Diagnosis Admission Date Mar 20, 2023 at 13:48 Medical Diagnosis: falls Onset Date: Mar 20, 2023 Therapy Diagnosis Therapy Diagnosis: fall, R distal radial FX, suture to right foot Height/Weight Height (Feet): 5 Height (Inches): 6.00 Weight (Pounds): 254 Weight (Ounces): 0.0 Precautions Precautions/Isolations: Fall Prevention, Standard Precautions Weight Bear Status Weight Bearing Restriction: Non Weight Bearing (RUE, Right toes) Referral Referral Comments Per ortho all, admitted, previously postponed for ORIF due to cardiac clearance per anesthesia Medical History Pertinent Medical History: Atrial Fib, CAD, Fractures Additional Medical History 77-year-old female clinic patient of Dr. Spring who has a past medical history of CAD and atrial fibrillation who presented to the ER after falling for the second time within 12 hours. On Wednesday she fell and broke her right wrist which is scheduled to be repaired surgically by Dr. Anglin on Wednesday however postpones until cleared w/ CARDIAC. Her labs reviewed no acute abnormality but due to the extensiveness and numerous falls she appears to be at high risk for decompensation and since she lives at home alone she will be admitted to the hospital for observation. Suture to right foot NWB toes. Reviewed History: Yes Social History Home: Single Level Current Living Status: Alone Entry Into Home: Ramp, Stairs With Railing (2) ADL-Prior Level of Function SCALE: Activities may be completed with or without assistive devices. 0-Anehftkpbg-jdrfwrs completes the activity by him/herself with no assistance from a helper. 5-Set-up or Clean-up Assistance-helper sets up or cleans up; patient completes activity. [place] assists only prior to or following the activity. 4-Supervision or Touching Assistance-helper provides verbal cues and/or touching/steadying and/or contact guard assistance as patient completes activity. Assistance may be provided throughout the activity or intermittently. 3-Partial/Moderate Assistance-helper does LESS THAN HALF the effort. [place] lifts, holds or supports trunk or limbs, but provides less than half the effort. 2-Substantial/Maximal Assistance-helper does MORE THAN HALF the effort. [place] lifts or holds trunk or limbs and provides more than half the effort. 5-Abcchbmhh-ekwwmg does ALL the effort. Patient does none of the effort to complete the activity. Or, the assistance of 2 or more helpers is required for the patient to complete the activity. If activity was not attempted, code reason: 7-Patient Refused. 9-Not Applicable-not attempted and the patient did not perform the activity before the current illness, exacerbation or injury. 10-Not Attempted due to Environmental Limitations-(lack of equipment, weather restraints, etc.). 88-Not Attempted due to Medical Conditions or Safety Concerns. Self Care: Independent Functional Cognition: Independent DME/Equipment Comments [address] Self: Yes OT Current Status Subjective Tearful w/ frustration and pain, daughter and son in law in room Pain Comment: see narrative for pain Mental Status/Objective Patient Orientation: Person, Place, Time, Situation (misses sequence of events) Current Upper Extremity ROM RUE restricted in sling. OT encouraged ROM of fingers, elevation of UE, patient declines ROM of shoulder. LUE WFLs Upper Extremity Coordination RUE impaired, LUE WFLS Upper Extremity Strength LUE -4/5. RUE NT ADL-Treatment ADL-Current Performed in recliner w/ leg rest elevated, Patient is unable to stand with one person. Transfer sequence verbalized to patient and written on board. Patient reports Right lateral knee pain 9/10, right foot pain 9/10 and right UE pain 7/10 w/ mobility and resolves to RLE pain 6/10 and 0/10 RUE at rest Eating (QC): 5 (Patient intially NPO however surgery has been postponed) Oral Hygiene (QC): 5 Shower/Bathe Self (QC): 88 (strong odor present w/ patient offloads buttocks from sitting surface) Upper Body Dressing (QC): 2 Lower Body Dressing (QC): 1 On/Off Footwear (QC): 2 (Patien is able to remove right sock using figure 4 and pull sock off foot w/ underlying LYLE wrap. Patient is not able to bend RLE kneee to perform sock management. Patient is not able to apply Right sock) Toileting Hygiene (QC): 1 Other Treatments ROM RUE fingers, education for pillow use for elevation, Encourage patient to scoot forward and back to increase activity and preparation for transfers and strengthening of UEs/ LEs Education OT Patient Education: Correct positioning, Energy conservation, Exercise program, Instructions to caregiver, Modified ADL techniques, Progress toward Goal/Update tx plan, Purpose of tx/functional activities, Reviewed precautions, Rehab process, Safety issues, Transfer techniques, Use of adapted equipment Teaching Recipient: Patient, Family Teaching Methods: Demonstration, Handout, Discussion Response to Teaching: Verbalize Understanding, Unable to Return Demonstration, Reinforcement Needed OT Fdc Goals Fdc Goals Time Frame: Apr 05, 2023 Eating (QC): 6 Oral Hygiene (QC): 6 Toileting Hygiene (QC): 3 Shower/Bathe Self (QC): 3 Upper Body Dressing (QC): 4 Lower Body Dressing (QC): 3 On/Off Footwear (QC): 4 1=Demonstrate adherence to instructed precautions during ADL tasks. 2=Patient will verbalize/demonstrate understanding of assistive devices/modifications for ADL. 3=Patient will improve strength/tolerance for activity to enable patient to perform ADL's. OT Education/Plan Problem List/Assessment Assessment: Decreased Activ Tolerance, Decreased Safety Aware, Decreased UE Strength, Dependent Transfers, Edema, Impaired Bed Mobility, Impaired Coordination, Impaired Funct Balance, Impaired Self-Care Skills, Restricted Funct UE ROM Discharge Recommendations Plan/Recommendations: Continue POC Therapy Discharge Recommendati: Post Acute OT Equpiment Recommendations-D/C: Hip Kit Barriers to Progress Pain, fear and poor tolerance to activity, unrealistic expectation to just go home and stay with daughter. Treatment Plan/Plan of Care Treatment,Training & Education: Yes Patient would benefit from OT for education, treatment and training to promote independence in ADL's, mobility, safety and/or upper extremity function for ADL's. Plan of Care: ADL Retraining, Caregiver Training, Functional Mobility, Group Exercise/Act as Ind, Orthotic Fitting/Training, UE Funct Exercise/Act Treatment Duration: Apr 05, 2023 Frequency: 3 times per week (3-5 times per week) Estimated Hrs Per Day: .25 hour per day Agreement: Yes Rehab Potential: Guarded Time Start Time: 09:15 Stop Time: 09:56 DATE: Mar 22, 2023 Total Time Billed (hr/min): 41 Billed Treatment Time 1EVH,1 ADL, 1Ex 41 min BASIM HOLT OT Mar 22, 2023 09:41
[2023-03-22] MEDS ORDERED: SENNA W/DOCUSATE TABLET PO NR (10:00)
--- NOTE | 2023-03-22 10:16 | Progress Note ---
ABHIJEET RICARDO 03/22/23 1016: Subjective Date Seen by a Provider: Mar 22, 2023 Time Seen by a Provider: 08:10 Subjective/Events-last exam This is a 77-year-old female patient with h/o CAD & Afib who admitted to the ED with multiple falls. She has a right distal radius fracture. Was scheduled for surgery today, but ortho wants a cardiology consult before surgery is done for her wrist. At bedside, patient was uncomfortable and stated she was feeling 'bad'. She states that her sling needs to be adjusted as it hurts her wrist whenever she was to get up and move. Both of her lower legs have bruises on the lateral aspects and is the source of her leg pain. She has stitches on her right pinky toe due to her falling and almost tearing the toe off. Reports that she thinks her last BM was last Wednesday. Review of Systems General: No Chills, No Night Sweats; Fatigue, Malaise; No Appetite, No Other HEENT: No Head Aches, No Visual Changes, No Eye Pain, No Ear Pain, No Dysphasia, No Sinus Congestion, No Post Nasal Drip, No Sore Throat, No Other Pulmonary: No Dyspnea, No Cough, No Pleuritic Chest Pain, No Other Cardiovascular: No: Chest Pain, Palpitations, Orthopnea, Paroxysmal Noc. Dyspnea, Edema, Lt Headedness, Other Gastrointestinal: Constipation; No: Nausea, Vomiting, Abdominal Pain, Diarrhea, Melena, Hematochezia, Other Genitourinary: No Dysuria, No Frequency, No Incontinence, No Hematuria, No Retention, No Other Musculoskeletal: arm pain, leg pain; No: other, neck pain, shoulder pain, back pain, hand pain, foot pain Neurological: No: Weakness, Numbness, Incoordination, Change in speech, Confusion, Seizures, Other Objective Exam Last Set of Vital Signs Vital Signs Date Time Temp Pulse Resp B/P (MAP) Pulse Ox O2 Delivery O2 Flow Rate FiO2 03/22/23 08:40 36.3 89 17 122/68 (86) 90 Room Air 03/22/23 08:34 0.00 Capillary Refill : I&O Intake and Output 03/22/23 00:00 Intake Total 3150 ml Output Total 250 ml Balance 2900 ml Intake Oral 1550 ml IV Total 1600 ml Output Urine Total 250 ml # Urine Diapers 6 General: Alert, Oriented X3, Cooperative, Mild Distress HEENT: Atraumatic, PERRLA, EOMI, Mucous Memb Moist/H[place]rum Lungs: Clear to Auscultation, Normal Air Movement Heart: Regular Rate, Normal S1, Normal S2, No Murmurs Extremities: No Clubbing, No Cyanosis Psych/Mental Status: Mental Status NL, Mood NL Results Lab Laboratory Tests 03/22/23 05:35: White Blood Count 8.6, Red Blood Count 3.60L, Hemoglobin 10.9L, Hematocrit 34L, Mean Corpuscular Volume 94, Mean Corpuscular Hemoglobin 30, Mean Corpuscular Hemoglobin Concent 32, Red Cell Distribution Width 14.7H, Platelet Count 206, Mean Platelet Volume 10.7, Immature Granulocyte % (Auto) 1, Neutrophils (%) (Auto) 76H, Lymphocytes (%) (Auto) 9L, Monocytes (%) (Auto) 10, Eosinophils (%) (Auto) 5, Basophils (%) (Auto) 0, Neutrophils # (Auto) 6.5, Lymphocytes # (Auto) 0.7L, Monocytes # (Auto) 0.8, Eosinophils # (Auto) 0.5H, Basophils # (Auto) 0.0, Immature Granulocyte # (Auto) 0.0, Sodium Level 137, Potassium Level 4.2, Chloride Level 105, Carbon Dioxide Level 26, Anion Gap 6, Blood Urea Nitrogen 14, Creatinine 0.71, Estimat Glomerular Filtration Rate 88, BUN/Creatinine Ratio 20, Glucose Level 132H, Calcium Level 8.5, Corrected Calcium 9.3, Total Bilirubin 1.0, Aspartate Amino Transf (AST/SGOT) 13, Alanine Aminotransferase (ALT/SGPT) 10, Alkaline Phosphatase 66, Total Protein 5.6L, Albumin 3.0L Assessment/Plan Assessment/Plan Assess & Plan/Chief Complaint Assessment: Multiple falls Weakness Right distal radius fracture needing surgery Afib CAD HTN COPD Chronic bronchitis Plan: Cardio consult Ortho consult for sling adjustment Needs ortho surgery Pain management Monitor 4th floor ERUM GONSALES DO 03/22/23 2003: Subjective Subjective/Events-last exam Patient doing about the same Very tearful since surgery was canceled Cardiology consultation will be performed today and then she will be scheduled for repair on Wednesday Dr. Anglin will change her cast Objective Exam General: Alert, Oriented X3, Cooperative, No Acute Distress Lungs: Clear to Auscultation Heart: Regular Rate Psych/Mental Status: Mental Status NL Assessment/Plan Assessment/Plan Assess & Plan/Chief Complaint Cardiology consult for clearance Reschedule surgery for Wednesday Dr. Anglin to change her cast due to severe pain Supervisory-Addendum Brief Verification & Attestation Participated in pt care: history, MDM, physical Personally performed: exam, history, MDM, supervision of care Care discussed with: Medical Student Procedures: n/a Results interpretation: Verified all documentation Verification and Attestation of Medical Student E/M Service A medical student performed and documented this service in my presence. I reviewed and verified all information documented by the medical student and made modifications to such information, when appropriate. I personally performed the physical exam and medical decision making. Erum Gonsales, Mar 22, 2023,20:02 ABHIJEET RICARDO Mar 22, 2023 10:16 ERUM GONSALES DO Mar 22, 2023 20:03
--- NOTE | 2023-03-22 11:43 | Physical Therapy Evaluation ---
PT Evaluation-General Medical Diagnosis Admission Date Mar 20, 2023 at 13:48 Medical Diagnosis: right distale radius fracture/falls Onset Date: Mar 20, 2023 Therapy Diagnosis Therapy Diagnosis: generalized weakness/debility Height/Weight Height (Feet): 5 Height (Inches): 6.00 Weight (Pounds): 254 Weight (Ounces): 0.0 Precautions Precautions/Isolations: Fall Prevention, Standard Precautions Weight Bear Status Right Lower Extremity: Right Weight Bearing/Tolerated Left Lower Extremity: Left Weight Bearing/Tolerated Referral Physician: Jaye Reason for Referral: Evaluation/Treatment Medical History Pertinent Medical History: Atrial Fib, CABG, CAD, COPD, Fractures, HTN Current History ER secondary to 4 falls in 4 days Reviewed History: Yes Social History Home: Single Level Current Living Status: Alone Entry Into Home: Ramp, Stairs With Railing (2) Prior Prior Level of Function SCALE: Activities may be completed with or without assistive devices. 2-Uvyqkisfdz-ervaypa completes the activity by him/herself with no assistance from a helper. 5-Set-up or Clean-up Assistance-helper sets up or cleans up; patient completes activity. [place] assists only prior to or following the activity. 4-Supervision or Touching Assistance-helper provides verbal cues and/or touching/steadying and/or contact guard assistance as patient completes activit y. Assistance may be provided throughout the activity or intermittently. 3-Partial/Moderate Assistance-helper does LESS THAN HALF the effort. [place] lifts, holds or supports trunk or limbs, but provides less than half the effort. 2-Substantial/Maximal Assistance-helper does MORE THAN HALF the effort. [place] lifts or holds trunk or limbs and provides more than half the effort. 5-Jcjlmgokk-ugkfjp does ALL the effort. Patient does none of the effort to complete the activity. Or, the assistance of 2 or more helpers is required for the patient to complete the activity. If activity was not attempted, code reason: 7-Patient Refused. 9-Not Applicable-not attempted and the patient did not perform the activity before the current illness, exacerbation or injury. 10-Not Attempted due to Environmental Limitations-(lack of equipment, weather restraints, etc.). 88-Not Attempted due to Medical Conditions or Safety Concerns. Bed Mobility: 6 Transfers (B,C,W/C): 6 Gait: 6 Indoor Mobility (Ambulation): Independent Prior Devices Use: Walker (4WW) PT Evaluation-Current Subjective Patient is very tearful. Reluctantly agrees to PT. Pain Numeric Pain Scale: 5-Moderate Pain Location: Right Location Body Site: Hip Pain Description: Acute Objective Patient Orientation: Normal For Age ROM/Strength ROM Lower Extremities bilateral LE WFL (pain limits comfort) Strength Lower Extremities 3-/5 grossly bilateral LE all planes Integumentary/Posture Integumentary refer to nursing notes Bladder Incontinence: No Posture trunk flexed posture Neuromuscular (Tone, Coordination, Reflexes) grossly intact Sensory Vision: Functional Hearing: Functional Transfers Lying to Sitting/Side of Bed(Q: 2 Sit to Stand (QC): 2 Chair/Iam-pr-Rrnau Xfer(QC): 2 Gait Does the Patient Walk?: No and Walking Goal IS indicated Balance Sitting Static: Fair Sitting Dynamic: Fair Standing Static: Fair Standing Dynamic: Poor Assessment/Needs Surgery has been postponed on this date. Patient will benefit from skilled PT to address functional strength and mobility to improve current LOF. Family present and are adamant that patient will have to be able to care for self upon dismissal from hospital to home. Rehab Potential: Guarded PT Diesel Locomotive Engineer Goals Prison Goals PT Diesel Locomotive Engineer Goals Time Frame: Apr 17, 2023 Roll Left & Right (QC): 4 Sit to Lying (QC): 4 Lying-Sitting on Side/Bed(QC): 4 Sit to Stand (QC): 4 Chair/Tea-bb-Dcmdc Xfer(QC): 4 Toilet Transfer (QC): 4 Walk 10 feet (QC): 4 Walk 50ft with 2 Turns (QC): 4 PT Plan Problem List Problem List: Activity Tolerance, Functional Strength, Safety, Balance, Gait, Transfer, Bed Mobility Treatment/Plan Treatment Plan: Continue Plan of Care Treatment Plan: Bed Mobility, Education, Functional Activity [place], Functional Strength, Gait, Safety, Therapeutic Exercise, Transfers Treatment Duration: Apr 17, 2023 Frequency: 6 times per week Estimated Hrs Per Day: .25 hour per day Time Time In: 927 Time Out: 944 DATE: Mar 22, 2023 Total Billed Treatment Time: 17 Total Billed Treatment 1 visit EVMod 17 min LEE CONNORS PT Mar 22, 2023 11:43
--- NOTE | 2023-03-22 12:10 | Consultation-Cardiology ---
HPI-Cardiology Cardiology Consultation Date of Consultation 03/22/23 Date of Admission Time Seen by Provider: 08:10 Indication: afib, cardiac clearance HPI Patient is a 77 y/o female with history of chronic rate controlled afib, HTN. Has been having increasing falls over the past 4 days resulting in right wrist fracture and increased back pain and weakness. Denies any chest pain or dyspnea. Home Medications & Allergies Allergies: Coded Allergies: sulfamethoxazole (Verified Allergy, Severe, Hives, 03/19/23) trimethoprim (Verified Allergy, Severe, Hives, 03/19/23) adhesive (Verified Allergy, Intermediate, Rash, 03/19/23) Iodinated Contrast Media (Unverified Allergy, Mild, NAUSEA, 03/19/23) Pt states it's the IV dye used in heart tests not CT scans penicillin G (Verified Allergy, Mild, RASH, 03/19/23) RASH Home Medication List Reviewed: Yes [id number] Hx Patient Social History Marital Status: single Employed/Student: retired Smoking Status: Former Smoker Former smoker/When Quit: Sep 07, 1990 Type Used: Cigarettes 2nd Hand Smoke Exposure: No Recent Hopitalizations: No Alcohol Use?: No Immunizations Up To Date Tetanus Booster (TDap): Unknown Date of Pneumonia Vaccine: Jun 23, 2021 Date of Influenza Vaccine: Apr 27, 2022 Past Medical History afib, HTN Family Medical History Significant Family History: CAD Over 55 Years Old Family History: Arthritis Cardiovascular disease 19 FATHER 19 MOTHER G8 BROTHER FH: [place] (myocardial infarction) 19 FATHER ( at 67 from [place]) 19 MOTHER ( at 39 from [place]) Hypertension Review of Systems-General Review of Systems Constitutional: see HPI EENTM: see HPI, no symptoms reported Respiratory: see HPI; No cough, No dyspnea on exertion Cardiovascular: see HPI; No chest pain, No edema; Hx of Intervention Reviewed Test Results Reviewed Test Results Lab Laboratory Tests 03/22/23 05:35: White Blood Count 8.6, Red Blood Count 3.60L, Hemoglobin 10.9L, Hematocrit 34L, Mean Corpuscular Volume 94, Mean Corpuscular Hemoglobin 30, Mean Corpuscular Hemoglobin Concent 32, Red Cell Distribution Width 14.7H, Platelet Count 206, Mean Platelet Volume 10.7, Immature Granulocyte % (Auto) 1, Neutrophils (%) (Auto) 76H, Lymphocytes (%) (Auto) 9L, Monocytes (%) (Auto) 10, Eosinophils (%) (Auto) 5, Basophils (%) (Auto) 0, Neutrophils # (Auto) 6.5, Lymphocytes # (Auto) 0.7L, Monocytes # (Auto) 0.8, Eosinophils # (Auto) 0.5H, Basophils # (Auto) 0.0, Immature Granulocyte # (Auto) 0.0, Sodium Level 137, Potassium Level 4.2, Chloride Level 105, Carbon Dioxide Level 26, Anion Gap 6, Blood Urea Nitrogen 14, Creatinine 0.71, Estimat Glomerular Filtration Rate 88, BUN/Creatinine Ratio 20, Glucose Level 132H, Calcium Level 8.5, Corrected Calcium 9.3, Total Bilirubin 1.0, Aspartate Amino Transf (AST/SGOT) 13, Alanine Aminotransferase (ALT/SGPT) 10, Alkaline Phosphatase 66, Total Protein 5.6L, Albumin 3.0L ECG Impression ECG Initial ECG Rhythm: A Fib/Flutter Physical Exam Physical Exam Vital Signs Vital Signs - First Documented 03/20/23 03/20/23 12:09 14:06 Temp 38.6 Pulse 76 Resp 17 B/P (MAP) 88/66 (73) Pulse Ox 93 O2 Delivery Room Air O2 Flow Rate 1.50 Capillary Refill : Height, Weight, BMI Height: 5'6.00" Weight: 254lbs. 0.0oz. [id number]; 40.20 BMI Method:Stated General Appearance: No Apparent Distress, WD/WN, Chronically ill Eyes: Bilateral Eye Normal Inspection, Bilateral Eye PERRL HEENT: PERRL/EOMI, TMs Normal, Normal ENT Inspection, Pharynx Normal Neck: Full Range of Motion, Normal Inspection, Non Tender, Supple, Carotid Bruit Respiratory: Chest Non Tender, Lungs Clear, Normal Breath Sounds, No Accessory Muscle Use, No Respiratory Distress Cardiovascular: Regular Rate, Rhythm, No Edema, No Gallop, No JVD, No Murmur, Normal Peripheral Pulses Gastrointestinal: Normal Bowel Sounds, No Organomegaly, No Pulsatile Mass, Non Tender, Soft Back: Normal Inspection, No CVA Tenderness, No Vertebral Tenderness Extremity: Normal Capillary Refill, Normal Inspection, Normal Range of Motion ( right arm in splint), Non Tender, No Calf Tenderness, No Pedal Edema Neurologic/Psychiatric: Alert, Oriented x3, No Motor/Sensory Deficits, Normal Mood/Affect Skin: Normal Color, Warm/Dry Lymphatic: No Adenopathy A/P-Cardiology Admission Diagnosis right wrist fracture CAD Atrial fibrillation Hypertension Assessment/Plan Right wrist fracture, planning for surgical repair with Dr. Anglin Permanent atrial fibrillation, rate controlled, maintained on Xarelto Intolerant to multiple antiarrhythmic medications, including sotalol and amiodarone, patient tolerated Multaq, did not tolerate Tikosyn. She has seen by Dr. Ricci in the past but does not want to go to for due to the distance and difficulty to get to . Accepted atrial fibrillation as permanent, will continue with rate control. Xarelto currently on hold in anticipation of surgery 2D echo was done in September 2021 with normal LV size, mild LVH, EF 50 to 55%, grade 1 diastolic dysfunction, left atrial dilatation 5.38 cm, mild mitral regurgitation, mild to moderate tricuspid regurgitation, PA pressure 40 to 45 mm Hg. [id number] score of 4, yearly risk of stroke without oral anticoagulation is 4 percent. Maintained on Xarelto which is currently on hold Coronary artery disease, history of CABG 4 in 2003. Cardiac catheterization August 25, 2016 revealing severe [place] coronary artery disease with patent bypass grafts including SWEET to LAD, vein graft obtuse marginal, vein graft to the right coronary artery was small vessel disease distally. Had an abnormal stress test with cardiac catheterization on March 23, 2018 showing patent SWEET to LAD vein graft to the obtuse marginal and vein graft to the right coronary artery with small vessel disease distally, improvement in the left ventricular function, calcified right renal artery with moderate to severe stenosis. continue to monitor Underwent LHC with Dr. Bang on 01/16/22 showing stable CAD without intervention. Congestive heart failure, improved, last echocardiogram was done in September 2021 ejection fraction 50-55 percent, grade 1 diastolic dysfunction, left atrial dilatation measuring 5.38 cm, mild MR, PA 40-45 mmHg. History of gastritis, maintained on PPI Hypertension, patient reports episodes of hypotension recently. I will hold blood pressure medications at this time and continue to monitor. Intolerance to isosorbide secondary to headache. History of sinus bradycardia, intolerance to beta blockers and/or calcium channel blockers, currently asymptomatic. Peripheral arterial disease with renal artery stenosis which appeared to be moderate to moderately severe on the right renal artery during coronary angiogram on March 23, 2018. Continue to monitor at this time Hyperlipidemia, continue to monitor Small infrarenal abdominal aortic aneurysm, CT scan was done in March 2013 measuring the aorta at 3.9 cm, ultrasound of the abdominal aorta reported as focal ectasia in the infrarenal abdominal aorta. Abdominal aortic ultrasound done in January 2016 revealed no evidence of aneurysm. Repeat CT scan in December 2018 reported as distal abdominal aortic aneurysm measuring 3.9 cm AAA evaluated during 01/16/22 [facility] showing stable distal AAA 4cm with widely patent iliac and common femoral arteries. Mild bilateral carotid stenosis, last carotid ultrasound done in July 2022 Peripheral edema, reporting improvement. Continue to monitor Obstructive sleep apnea, currently not on CPAP, follows with director news. Thank you for allowing us to participate in the management of Ms Soares. This is Cristina Mims PA-C, as a scribe for Dr Tinoco. Patient was seen and evaluated with Cristina, I interviewed and examined the patient and agree with the current scribed note Discussed management plan with Dr. Anglin, patient is considered at intermediate risk for perioperative cardiovascular complication, decision regarding the vásquez rgery, risk versus benefit is deferred to the surgeon Patient is in atrial fibrillation and has been off anticoagulation in prep aration for surgery Continue to monitor blood pressure and telemetry CRISTINA HOANG Mar 22, 2023 12:10 MOHSEN TINOCO MD Mar 22, 2023 13:36
[2023-03-22 12:18] VITALS: BP 122/68
[2023-03-22 16:16] VITALS: BP 124/79
[2023-03-22] MEDS: ACETAMINOPHEN 325 MG TABLET PO PRN (18:38)
[2023-03-22 20:06] VITALS: BP 113/70
[2023-03-22] MEDS: SENNA W/DOCUSATE TABLET PO SCH (21:56)
[2023-03-22] MEDS: morphine INJ 4 MG/ML 1 ML (VIAL/SYRINGE) IV PRN (22:14)
[2023-03-22 23:49] VITALS: BP 115/79
[2023-03-23] VITALS (8 sets, daily range): BP systolic 107–139; BP diastolic 53–79
[2023-03-23] MEDS: oxyCODONE IMMEDIATE RELEASE 5 MG TABLET PO PRN ×2 (02:13→15:48)
[2023-03-23] MEDS: ACETAMINOPHEN 325 MG TABLET PO PRN (02:13)
[2023-03-23 05:25] LABS: BASOPHILS % (AUTO) 1 % (0-10); EOSINOPHILS # (AUTO) 0.4 10^3/uL (0.0-0.3); EOSINOPHILS % (AUTO) 5 % (0-10); HEMATOCRIT 36 % (35-52); HEMOGLOBIN 11.4 g/dL (11.5-16.0); LYMPHOCYTES # (AUTO) 0.9 10^3/uL (1.0-4.0); LYMPHOCYTES % (AUTO) 12 % (12-44); MEAN CORPUSCULAR HEMOGLOBIN 30 pg (25-34); MEAN CORPUSCULAR HGB CONC 32 g/dL (32-36); MEAN CORPUSCULAR VOLUME 94 fL (80-99); MEAN PLATELET VOLUME 10.9 fL (9.0-12.2); MONOCYTES # (AUTO) 0.9 10^3/uL (0.0-1.0); MONOCYTES % (AUTO) 12 % (0-12); NEUTROPHILS # (AUTO) 5.3 10^3/uL (1.8-7.8); NEUTROPHILS % (AUTO) 70 % (42-75); PLATELET COUNT 200 10^3/uL (130-400); WHITE BLOOD COUNT 7.6 10^3/uL (4.3-11.0)
[2023-03-23 05:35] LABS: ALBUMIN 3.1 GM/DL (3.2-4.5); POTASSIUM 4.1 MMOL/L (3.6-5.0)
[2023-03-23 05:36] LABS: CALCIUM 8.5 MG/DL (8.5-10.1)
[2023-03-23 05:37] LABS: TOTAL PROTEIN 5.7 GM/DL (6.4-8.2)
[2023-03-23 05:39] LABS: BILIRUBIN,TOTAL 1.5 MG/DL (0.1-1.0)
[2023-03-23 05:41] LABS: CREATININE SERUM 0.7 MG/DL (0.60-1.30)
--- NOTE | 2023-03-23 08:36 | Cardiology Progress Note ---
Subjective Date Seen by Provider: Mar 23, 2023 Time Seen by Provider: 08:35 Subjective/Events-last exam Patient was seen at bedside, sitting comfortably. No new complaint Objective-Cardiology Exam Last Set of Vital Signs Vital Signs 03/22/23 03/23/23 12:18 07:30 Temp 36.1 Pulse 100 Resp 18 B/P (MAP) 122/66 (84) Pulse Ox 93 O2 Delivery Room Air O2 Flow Rate 0.00 0.00 I&O Intake and Output 03/23/23 00:00 Intake Total 740 ml Output Total 150 ml Balance 590 ml Intake Oral 740 ml Output Urine Total 150 ml # Voids 2 # Urine Diapers 2 # Bowel Movements 1 General: Alert, Oriented X3, Cooperative, No Acute Distress HEENT: Atraumatic, PERRLA, EOMI, Mucous Memb Moist/[place] Lungs: Clear to Auscultation Heart: Normal S1, Normal S2, Other (Atrial fibrillation) Extremities: No Clubbing, No Cyanosis Psych/Mental Status: Mental Status NL Results Lab Laboratory Tests 03/23/23 05:00 A/P-Cardiology Admission Diagnosis right wrist fracture CAD Atrial fibrillation Hypertension Assessment/Plan Right wrist fracture, planning for surgical repair with Dr. Anglin Permanent atrial fibrillation, rate controlled, maintained on Xarelto Intolerant to multiple antiarrhythmic medications, including sotalol and amiodarone, patient tolerated Multaq, did not tolerate Tikosyn. She has seen by Dr. Ricci in the past but does not want to go to for due to the distance and difficulty to get to . Accepted atrial fibrillation as permanent, will continue with rate control. Xarelto currently on hold in anticipation of surgery 2D echo was done in September 2021 with normal LV size, mild LVH, EF 50 to 55%, grade 1 diastolic dysfunction, left atrial dilatation 5.38 cm, mild mitral regurgitation, mild to moderate tricuspid regurgitation, PA pressure 40 to 45 mmHg. [id number] score of 4, yearly risk of stroke without oral anticoagulation is 4 percent. Maintained on Xarelto which is currently on hold Coronary artery disease, history of CABG 4 in 2003. Cardiac catheterization August 25, 2016 revealing severe [place] coronary artery disease with patent bypass grafts including SWEET to LAD, vein graft obtuse marginal, vein graft to the right coronary artery was small vessel disease distally. Had an abnormal stress test with cardiac catheterization on March 23, 2018 showing patent SWEET to LAD vein graft to the obtuse marginal and vein graft to the right coronary artery with small vessel disease distally, improvement in the left ventricular function, calcified right renal artery with moderate to severe stenosis. continue to monitor Underwent LHC with Dr. Bang on 01/16/22 showing stable CAD without intervent ion. Congestive heart failure, improved, last echocardiogram was done in September 2021 ejection fraction 50-55 percent, grade 1 diastolic dysfunction, left atrial dilatation measuring 5.38 cm, mild MR, PA 40-45 mmHg. History of gastritis, maintained on PPI Hypertension, patient reports episodes of hypotension recently. I will hold blood pressure medications at this time and continue to monitor. Intolerance to isosorbide secondary to headache. History of sinus bradycardia, intolerance to beta blockers and/or calcium channel blockers, currently asymptomatic. Peripheral arterial disease with renal artery stenosis which appeared to be moderate to moderately severe on the right renal artery during coronary angiogram on March 23, 2018. Continue to monitor at this time Hyperlipidemia, continue to monitor Small infrarenal abdominal aortic aneurysm, CT scan was done in March 2013 measuring the aorta at 3.9 cm, ultrasound of the abdominal aorta reported as focal ectasia in the infrarenal abdominal aorta. Abdominal aortic ultrasound done in January 2016 revealed no evidence of aneurysm. Repeat CT scan in December 2018 reported as distal abdominal aortic aneurysm measuring 3.9 cm AAA evaluated during 01/16/22 [facility] showing stable distal AAA 4cm with widely patent iliac and common femoral arteries. Mild bilateral carotid stenosis, last carotid ultrasound done in July 2022 Peripheral edema, reporting improvement. Continue to monitor Obstructive sleep apnea, currently not on CPAP, follows with [facility]. MOHSEN MORRIS MD Mar 23, 2023 08:36
[2023-03-23] MEDS: MICONAZOLE 2% POWDER 90 GM TOP SCH ×2 (08:47→20:44)
[2023-03-23] MEDS: DOCUSATE SODIUM 100 MG CAPSULE PO SCH ×2 (08:47→20:44)
--- NOTE | 2023-03-23 08:47 | Wound Care Assessment ---
Wound Care Assessment Date Seen by Provider: Mar 23, 2023 Time Seen by Provider: 08:42 Chief Complaint Laceration care HPI This pleasant 77 year old was admitted for orthopedic evaluation for distal radial fracture. She has had numerous falls. Was in ED on 03/20/23 and laceration between R. 4/5 toe was sutured per Dr. Shipley. I have been consulted for laceration care. Per Dr. Shipley's instructions from her ED note on 03/20/23 the area is to be washed daily, application of antibiotic ointment bid and sutures to be removed 2 weeks following placement (this would be 04/03/23). I will place orders as such. On exam today, the 5 sutures are clean, dry and intact. Past Medical History: Admits Heart Disease Falls (recurrent), generalized weakness, atrial fibrillation, CAD and COPD Smoking Status: Former Smoker Recreational Drug Use: No Alcohol Use: Denies Use Review of Systems Other systems Limited ROS Exam Vital Signs Date Time Temp Pulse Resp B/P (MAP) Pulse Ox O2 Delivery O2 Flow Rate FiO2 03/23/23 07:30 36.1 100 18 122/66 (84) 93 Room Air 03/22/23 12:18 0.00 0.00 Capillary Refill : General Appearance: WD/WN, no apparent distress HEENT: other (Normal hearing) Neck: full range of motion Respiratory: no respiratory distress, no accessory muscle use Extremities: other (R. forearm in cast) Neurologic/Psychiatric: alert, normal mood/affect, oriented x 3 Skin: ecchymosis Laceration 2 cm length with 5 sutures. Clean, dry and intact. No signs of infection or dehiscence Results Laboratory Tests 03/23/23 05:00: White Blood Count 7.6, Red Blood Count 3.78L, Hemoglobin 11.4L, Hematocrit 36, Mean Corpuscular Volume 94, Mean Corpuscular Hemoglobin 30, Mean Corpuscular Hemoglobin Concent 32, Red Cell Distribution Width 14.7H, Platelet Count 200, Mean Platelet Volume 10.9, Immature Granulocyte % (Auto) 1, Neutrophils (%) (Auto) 70, Lymphocytes (%) (Auto) 12, Monocytes (%) (Auto) 12, Eosinophils (%) (Auto) 5, Basophils (%) (Auto) 1, Neutrophils # (Auto) 5.3, Lymphocytes # (Auto) 0.9L, Monocytes # (Auto) 0.9, Eosinophils # (Auto) 0.4H, Basophils # (Auto) 0.0, Immature Granulocyte # (Auto) 0.0, Sodium Level 139, Potassium Level 4.1, Chloride Level 103, Carbon Dioxide Level 27, Anion Gap 9, Blood Urea Nitrogen 11, Creatinine 0.70, Estimat Glomerular Filtration Rate 89, BUN/Creatinine Ratio 16, Glucose Level 102, Calcium Level 8.5, Corrected Calcium 9.2, Total Bilirubin 1.5H, Aspartate Amino Transf (AST/SGOT) 14, Alanine Aminotransferase (ALT/SGPT) 12, Alkaline Phosphatase 62, Total Protein 5.7L, Albumin 3.1L Microbiology 03/21/23 MRSA Screen - Final, Complete MRSA not isolated Microbiology 03/21/23 MRSA Screen - Final, Complete MRSA not isolated Assessment/Plan/Dx Assessment: 1. laceration care 2. Falls with traumatic fractures/lacerations Plan: 1. Per Dr. Shipley's instructions: Wash daily with soap and water. Dry thoroughly. Apply mupirocin twice daily atop sutures. Open to air per patient preference. Monitor for signs infection/dehiscence. Remove 5 sutures on 04/03/23. 2. Per ortho and primary team 3. Will sign off. MARY HANSON MD Mar 23, 2023 08:47
[2023-03-23] MEDS: SENNA W/DOCUSATE TABLET PO SCH ×2 (08:48→20:44)
[2023-03-23] MEDS: SENNOSIDES 8.6 MG TABLET PO SCH ×2 (08:48→20:44)
--- NOTE | 2023-03-23 09:55 | Progress Note ---
ABHIJEET RICARDO 03/23/23 0955: Subjective Date Seen by a Provider: Mar 23, 2023 Time Seen by a Provider: 08:00 Subjective/Events-last exam Patient is doing the same as yesterday. She stated that she almost had a fall yesterday night when the nurse was helping her get out of bed. Ortho re-wrapped her arm yesterday, but the near-fall last night unpositioned her arm in the cast. Was still having pain with her arm and still has some weakness in her legs. Pain medication helped last night. Did have a BM yesterday and she reported nonbloody diarrhea. Is scheduled for surgery tomorrow. Review of Systems General: No Chills, No Night Sweats, No Fatigue, No Malaise, No Appetite, No Other HEENT: No Head Aches, No Visual Changes, No Eye Pain, No Ear Pain, No D ysphasia, No Sinus Congestion, No Post Nasal Drip, No Sore Throat, No Other Pulmonary: No Dyspnea, No Cough, No Pleuritic Chest Pain, No Other Cardiovascular: No: Chest Pain, Palpitations, Orthopnea, Paroxysmal Noc. Dyspnea, Edema, Lt Headedness, Other Gastrointestinal: No: Nausea, Vomiting, Abdominal Pain, Diarrhea, Constipation, Melena, Hematochezia, Other Genitourinary: No Dysuria, No Frequency, No Incontinence, No Hematuria, No Retention, No Other Musculoskeletal: arm pain, leg pain; No: other, neck pain, shoulder pain, back pain, hand pain, foot pain Neurological: No: Weakness, Numbness, Incoordination, Change in speech, Co nfusion, Seizures, Other Objective Exam Last Set of Vital Signs Vital Signs Date Time Temp Pulse Resp B/P (MAP) Pulse Ox O2 Delivery O2 Flow Rate FiO2 03/23/23 07:30 36.1 100 18 122/66 (84) 93 Room Air 03/22/23 12:18 0.00 0.00 Capillary Refill : I&O Intake and Output 03/23/23 00:00 Intake Total 740 ml Output Total 150 ml Balance 590 ml Intake Oral 740 ml Output Urine Total 150 ml # Voids 2 # Urine Diapers 2 # Bowel Movements 1 General: Alert, Oriented X3, Cooperative, No Acute Distress HEENT: Atraumatic, PERRLA, EOMI, Mucous Memb Moist/[place] Lungs: Clear to Auscultation, Normal Air Movement Heart: Normal S1, Normal S2, No Murmurs Extremities: No Clubbing, No Cyanosis Neuro: Normal Speech Psych/Mental Status: Mental Status NL, Mood NL Results Lab Laboratory Tests 03/23/23 05:00: White Blood Count 7.6, Red Blood Count 3.78L, Hemoglobin 11.4L, Hematocrit 36, Mean Corpuscular Volume 94, Mean Corpuscular Hemoglobin 30, Mean Corpuscular Hemoglobin Concent 32, Red Cell Distribution Width 14.7H, Platelet Count 200, Mean Platelet Volume 10.9, Immature Granulocyte % (Auto) 1, Neutrophils (%) (Auto) 70, Lymphocytes (%) (Auto) 12, Monocytes (%) (Auto) 12, Eosinophils (%) (Auto) 5, Basophils (%) (Auto) 1, Neutrophils # (Auto) 5.3, Lymphocytes # (Auto) 0.9L, Monocytes # (Auto) 0.9, Eosinophils # (Auto) 0.4H, Basophils # (Auto) 0.0, Immature Granulocyte # (Auto) 0.0, Sodium Level 139, Potassium Level 4.1, Chloride Level 103, Carbon Dioxide Level 27, Anion Gap 9, Blood Urea Nitrogen 11, Creatinine 0.70, Estimat Glomerular Filtration Rate 89, BUN/Creatinine Ratio 16, Glucose Level 102, Calcium Level 8.5, Corrected Calcium 9.2, Total Bilirubin 1.5H, Aspartate Amino Transf (AST/SGOT) 14, Alanine Aminotransferase (ALT/SGPT) 12, Alkaline Phosphatase 62, Total Protein 5.7L, Albumin 3.1L Microbiology 03/21/23 MRSA Screen - Final, Complete MRSA not isolated Assessment/Plan Assessment/Plan Assess & Plan/Chief Complaint Assessment: Multiple falls Weakness Right distal radius fracture needing surgery Afib CAD HTN COPD Chronic bronchitis Plan: Scheduled for surgery tomorrow Pain management Monitor 4th floor ERUM GONSALES DO 03/23/23 2001: Subjective Subjective/Events-last exam Doing about the same Less pain since cast was changed yesterday OR tomorrow Review of Systems General: Fatigue, Malaise Musculoskeletal: arm pain Objective Exam General: Alert, Oriented X3, Cooperative, No Acute Distress Lungs: Clear to Auscultation, Normal Air Movement Heart: Regular Rate, Normal S1, Normal S2, No Murmurs Psych/Mental Status: Mental Status NL, Mood NL Assessment/Plan Assessment/Plan Assess & Plan/Chief Complaint OR tomorrow Supervisory-Addendum Brief Verification & Attestation Participated in pt care: history, MDM, physical Personally performed: exam, history, MDM, supervision of care Care discussed with: Medical Student Procedures: n/a Results interpretation: Verified all documentation Verification and Attestation of Medical Student E/M Service A medical student performed and documented this service in my presence. I reviewed and verified all information documented by the medical student and made modifications to such information, when appropriate. I personally performed the physical exam and medical decision making. Erum Gonsales, Mar 23, 2023,20:01 ABHIJEET RICARDO Mar 23, 2023 09:55 ERUM GONSALES DO Mar 23, 2023 20:01
--- NOTE | 2023-03-23 10:18 | Occupational Ther Daily Note ---
OT Current Status-Daily Note Subjective In better spirits than yesterday, apologetic for painful outburst and behaviors, OT reports to patient understanding pain and no need to apologize. OT notes improvement in mobility and gomes control today Mental Status/Objective Patient Orientation: Person, Place, Time, Situation NWB on Right toes, ADL-Treatment Patient agreeable to ambulate to bathroom for toileting and hygiene care w/ FWW use. noted PU between glute folds, OT thoroughly cleaned w/ soap and water, dried and patient has cream for bottom. Patient positioned on left side iin bed w/ pillows for dony prominences Therapy Code Descriptions/Definitions Functional [place] Measure: 0=Not Assessed/NA 4=Minimal Assistance 1=Total Assistance 5=Supervision or Setup 2=Maximal Assistance 6=Modified [place] 3=Moderate Assistance 7=Complete IndependenceSCALE: Activities may be completed with or without assistive devices. 2-Gxtfahgxdr-nudcjle completes the activity by him/herself with no assistance from a helper. 5-Set-up or Clean-up Assistance-helper sets up or cleans up; patient completes activity. [place] assists only prior to or following the activity. 4-Supervision or Touching Assistance-helper provides verbal cues and/or touching/steadying and/or contact guard assistance as patient completes activity. Assistance may be provided throughout the activity or intermittently. 3-Partial/Moderate Assistance-helper does LESS THAN HALF the effort. [place] lifts, holds or supports trunk or limbs, but provides less than half the effort. 2-Substantial/Maximal Assistance-helper does MORE THAN HALF the effort. [place] lifts or holds trunk or limbs and provides more than half the effort. 9-Lqdimehcy-dkibjv does ALL the effort. Patient does none of the effort to complete the activity. Or, the assistance of 2 or more helpers is required for the patient to complete the activity. If activity was not attempted, code reason: 7-Patient Refused. 9-Not Applicable-not attempted and the patient did not perform the activity before the current illness, exacerbation or injury. 10-Not Attempted due to Environmental Limitations-(lack of equipment, weather restraints, etc.). 88-Not Attempted due to Medical Conditions or Safety Concerns. Eating (QC): 6 Oral Hygiene (QC): 5 (sitting) Shower/Bathe Self (QC): 7 (declined, however is needed) Upper Body Dressing (QC): 2 Lower Body Dressing (QC): 3 On/Off Footwear: 1 Toileting Hygiene (QC): 2 Toilet Transfer (QC): 3 Education OT Patient Education: Correct positioning, Home exercise program, Modified ADL techniques, Progress toward Goal/Update tx plan, Purpose of tx/functional activities, Reviewed precautions, Rehab process, Safety issues, Transfer techniques, Use of adapted equipment Teaching Recipient: Patient Teaching Methods: Demonstration, Discussion Response to Teaching: Verbalize Understanding, Reinforcement Needed OT Reel Cutter Goals [facility] Goals Time Frame: Apr 05, 2023 Eating (QC): 6 Oral Hygiene (QC): 6 Toileting Hygiene (QC): 3 Shower/Bathe Self (QC): 3 Upper Body Dressing (QC): 4 Lower Body Dressing (QC): 3 On/Off Footwear (QC): 4 1=Demonstrate adherence to instructed precautions during ADL tasks. 2=Patient will verbalize/demonstrate understanding of assistive devices/modifications for ADL. 3=Patient will improve strength/tolerance for activity to enable patient to perform ADL's. OT Education/Plan Discharge Recommendations Plan/Recommendations: Continue POC Treatment Plan/Plan of Care Patient would benefit from OT for education, treatment and training to promote independence in ADL's, mobility, safety and/or upper extremity function for ADL's. Plan of Care: ADL Retraining, Caregiver Training, Functional Mobility, Group Exercise/Act as Ind, Orthotic Fitting/Training, UE Funct Exercise/Act Treatment Duration: Apr 05, 2023 Frequency: 3 times per week (3-5 times per week) Estimated Hrs Per Day: .25 hour per day Agreement: Yes Rehab Potential: Guarded Time Start Time: 09:14 Stop Time: 09:41 DATE: Mar 23, 2023 Total Time Billed (hr/min): 33 Billed Treatment Time ADL 33 min BASIM HOLT OT Mar 23, 2023 10:18
--- NOTE | 2023-03-23 10:19 | Occupational Ther Daily Note ---
OT Current Status-Daily Note ADL-Treatment Therapy Code Descriptions/Definitions Functional [place] Measure: 0=Not Assessed/NA 4=Minimal Assistance 1=Total Assistance 5=Supervision or Setup 2=Maximal Assistance 6=Modified [place] 3=Moderate Assistance 7=Complete IndependenceSCALE: Activities may be completed with or without assistive devices. 1-Wntlqymwgv-alzfkdd completes the activity by him/herself with no assistance from a helper. 5-Set-up or Clean-up Assistance-helper sets up or cleans up; patient completes activity. [place] assists only prior to or following the activity. 4-Supervision or Touching Assistance-helper provides verbal cues and/or touching/steadying and/or contact guard assistance as patient completes activity. Assistance may be provided throughout the activity or intermittently. 3-Partial/Moderate Assistance-helper does LESS THAN HALF the effort. [place] lifts, holds or supports trunk or limbs, but provides less than half the effort. 2-Substantial/Maximal Assistance-helper does MORE THAN HALF the effort. [place] lifts or holds trunk or limbs and provides more than half the effort. 1-Rqzypzorb-rgxvqw does ALL the effort. Patient does none of the effort to complete the activity. Or, the assistance of 2 or more helpers is required for the patient to complete the activity. If activity was not attempted, code reason: 7-Patient Refused. 9-Not Applicable-not attempted and the patient did not perform the activity before the current illness, exacerbation or injury. 10-Not Attempted due to Environmental Limitations-(lack of equipment, weather restraints, etc.). 88-Not Attempted due to Medical Conditions or Safety Concerns. OT Intermediate Goals [employer] Goals Time Frame: Apr 05, 2023 Eating (QC): 6 Oral Hygiene (QC): 6 Toileting Hygiene (QC): 3 Shower/Bathe Self (QC): 3 Upper Body Dressing (QC): 4 Lower Body Dressing (QC): 3 On/Off Footwear (QC): 4 1=Demonstrate adherence to instructed precautions during ADL tasks. 2=Patient will verbalize/demonstrate understanding of assistive devices/modifications for ADL. 3=Patient will improve strength/tolerance for activity to enable patient to perform ADL's. OT Education/Plan Treatment Plan/Plan of Care Patient would benefit from OT for education, treatment and training to promote independence in ADL's, mobility, safety and/or upper extremity function for ADL's. Plan of Care: ADL Retraining, Caregiver Training, Functional Mobility, Group Exercise/Act as Ind, Orthotic Fitting/Training, UE Funct Exercise/Act Treatment Duration: Apr 05, 2023 Frequency: 3 times per week (3-5 times per week) Estimated Hrs Per Day: .25 hour per day Agreement: Yes Rehab Potential: Guarded Time Start Time: 09:43 Stop Time: 10:06 DATE: Mar 23, 2023 Total Time Billed (hr/min): 23 Billed Treatment Time ADL 23 min BASIM OHLT OT Mar 23, 2023 10:19
[2023-03-23] MEDS: MUPIROCIN 2% OINTMENT 22 GM TUBE TOP SCH ×2 (10:44→20:44)
--- NOTE | 2023-03-23 10:54 | Physical Therapy Daily Note ---
PT Daily Note-Current Subjective Patient agrees to therapy. Pain Section J - Health Conditions 1. Rarely or not at all 2. Occasionally 3. Frequently 4. Almost constantly 8. Unable to answer Pain Effect on Sleep: 2 Pain Interference with Therapy: 2 Pain Interference w/Day-to-Day: 2 Transfers SCALE: Activities may be completed with or without assistive devices. 7-Ilhczvhvjh-qxyodec completes the activity by him/herself with no assistance from a helper. 5-Set-up or Clean-up Assistance-helper sets up or cleans up; patient completes activity. [place] assists only prior to or following the activity. 4-Supervision or Touching Assistance-helper provides verbal cues and/or touching/steadying and/or contact guard assistance as patient completes activity. Assistance may be provided throughout the activity or intermittently. 3-Partial/Moderate Assistance-helper does LESS THAN HALF the effort. [place] lifts, holds or supports trunk or limbs, but provides less than half the effort. 2-Substantial/Maximal Assistance-helper does MORE THAN HALF the effort. [place] lifts or holds trunk or limbs and provides more than half the effort. 4-Nriycusyu-vfpchd does ALL the effort. Patient does none of the effort to complete the activity. Or, the assistance of 2 or more helpers is required for the patient to complete the activity. If activity was not attempted, code reason: 7-Patient Refused. 9-Not Applicable-not attempted and the patient did not perform the activity before the current illness, exacerbation or injury. 10-Not Attempted due to Environmental Limitations-(lack of equipment, weather restraints, etc.). 88-Not Attempted due to Medical Conditions or Safety Concerns. Sit to Stand (QC): 2 Chair/Ctf-pn-Bskjm Xfer(QC): 3 Toilet Transfer (QC): 3 Weight Bearing Right Lower Extremity: Right Weight Bearing/Tolerated Left Lower Extremity: Left Weight Bearing/Tolerated Gait Training Distance: 30' x 2 Walk 10 feet (QC): 3 Gait Assistive Device: Cane Small Base Quad slow, step to right heel contact/trunk flexed posture Assessment Patient tolerated treatment well and is in bed sidelying left due to gluteal wounds. Continue to increase activity as tolerated by patient. PT Field Technical Specialist Goals [facility] Goals PT [facility] Goals Time Frame: Apr 17, 2023 Roll Left & Right (QC): 4 Sit to Lying (QC): 4 Lying-Sitting on Side/Bed(QC): 4 Sit to Stand (QC): 4 Chair/Iln-mq-Ylicl Xfer(QC): 4 Toilet Transfer (QC): 4 Walk 10 feet (QC): 4 Walk 50ft with 2 Turns (QC): 4 PT Plan Treatment/Plan Treatment Plan: Continue Plan of Care Treatment Plan: Bed Mobility, Education, Functional Activity [place], Functional Strength, Gait, Safety, Therapeutic Exercise, Transfers Treatment Duration: Apr 17, 2023 Frequency: 6 times per week Estimated Hrs Per Day: .25 hour per day Time Time In: 914 Time Out: 940 DATE: Mar 23, 2023 Total Billed Treatment Time: 25 Total Billed Treatment 1 visit GT x 2 24 min LEE CONNORS PT Mar 23, 2023 10:54
[2023-03-23] MEDS ORDERED: CHOL10007 PO (12:20)
[2023-03-23] MEDS ORDERED: CYAN500T8 PO (12:20)
[2023-03-23] MEDS ORDERED: INUL1TAB3 PO (12:20)
[2023-03-23] MEDS ORDERED: TRAM50TA3 PO (12:20)
[2023-03-23] MEDS: morphine INJ 4 MG/ML 1 ML (VIAL/SYRINGE) IV PRN ×2 (13:01→20:45)
[2023-03-23] MEDS: GABAPENTIN 300 MG CAPSULE PO PRN (15:48)
[2023-03-24] VITALS (11 sets, daily range): BP systolic 111–168; BP diastolic 68–99
[2023-03-24 05:51] LABS: BASOPHILS % (AUTO) 1 % (0-10); EOSINOPHILS # (AUTO) 0.4 10^3/uL (0.0-0.3); EOSINOPHILS % (AUTO) 5 % (0-10); HEMATOCRIT 35 % (35-52); HEMOGLOBIN 11.3 g/dL (11.5-16.0); LYMPHOCYTES # (AUTO) 1.3 10^3/uL (1.0-4.0); LYMPHOCYTES % (AUTO) 20 % (12-44); MEAN CORPUSCULAR HEMOGLOBIN 30 pg (25-34); MEAN CORPUSCULAR HGB CONC 32 g/dL (32-36); MEAN CORPUSCULAR VOLUME 93 fL (80-99); MEAN PLATELET VOLUME 10.6 fL (9.0-12.2); MONOCYTES % (AUTO) 15 % (0-12); NEUTROPHILS # (AUTO) 3.9 10^3/uL (1.8-7.8); NEUTROPHILS % (AUTO) 59 % (42-75); PLATELET COUNT 230 10^3/uL (130-400); WHITE BLOOD COUNT 6.6 10^3/uL (4.3-11.0)
[2023-03-24 06:19] LABS: ALBUMIN 3.3 GM/DL (3.2-4.5); BILIRUBIN,TOTAL 1.2 MG/DL (0.1-1.0); CALCIUM 8.8 MG/DL (8.5-10.1); CREATININE SERUM 0.78 MG/DL (0.60-1.30); POTASSIUM 4.2 MMOL/L (3.6-5.0); TOTAL PROTEIN 5.7 GM/DL (6.4-8.2)
[2023-03-24] MEDS ORDERED: BUPIVACAINE 0.25% 30 ML VIAL ONE (06:55)
[2023-03-24] MEDS ORDERED: LIDOCAINE PF 2% 5 ML VIAL ONE (06:56)
[2023-03-24] MEDS ORDERED: fentaNYL INJECTION 100 MCG/2 ML VIAL ONE (06:56)
[2023-03-24] MEDS ORDERED: SEVOFLURANE (ULTANE) 15 ML INHAL SOLN ONE (06:56)
[2023-03-24] MEDS ORDERED: dexAMETHasone INJ 10 MG/ML 1 ML VIAL ONE (06:56)
[2023-03-24] MEDS ORDERED: proPOfol INJECTION 200 MG/20 ML VIAL IV ONE (06:56)
[2023-03-24] MEDS ORDERED: ONDANSETRON INJECTION 4 MG/2 ML (SDV) ONE (06:56)
[2023-03-24] MEDS ORDERED: ceFAZolin 1,000 MG VIAL IV ONE (07:00)
[2023-03-24] MEDS ORDERED: ceFAZolin 2,000 MG VIAL IV NR (07:00)
[2023-03-24] MEDS ORDERED: ROCURONIUM 50 MG/5 ML VIAL IV ONE (07:05)
[2023-03-24] MEDS ORDERED: meTOprolol INJECTION 5 MG/5 ML VIAL ONE (07:47)
[2023-03-24] MEDS ORDERED: BUPIVACAINE 0.25% 30 ML VIAL INJ ONE (08:00)
[2023-03-24] MEDS ORDERED: SUGAMMADEX 500 MG/5 ML VIAL (BRIDION) IV ONE (08:32)
[2023-03-24] MEDS ORDERED: KETOROLAC INJ 30 MG/ML VIAL ONE (08:33)
--- NOTE | 2023-03-24 08:53 | Operative Report - Ortho ---
Operative Report Surgeon (s)/Director Style (s) Surgeon AMBER MILLER MD Director Style n/a Pre-Operative Diagnosis RIGHT DISTAL RADIUS FRACTURE Post-Operative Diagnosis same Operative Report Date of Procedure: Mar 24, 2023 Name of Procedure Performed: Open Reduction and Internal Fixation of Right Distal Radius Fracture Description & Findings After obtaining informed consent, the patient was taken to the operating room. General anesthesia was induced. Surgical timeout was taken. The right upper extremity was prepped and draped in the usual sterile fashion. Incision was made over the volar side of the wrist. Radial artery was identified and protected. Fascia was divided, retractors were placed, and the pronator was reflected. Fracture site was exposed. Fracture site was mobilized. Reduction maneuver was performed using traction, wrist extension, and direct pressure. Intraarticular fragment was manipulated with a freer and reduced into a stable p osition. C-arm confirmed reduction. A [employer] distal radius plate was selected and positioned against the bone using C-arm. A nonlocking screw was placed in the slot of the plate. A nonlocking screw was then placed in the most distal row of the plate. Plate position and reduction were confirmed in the AP and lateral planes. An ulnar sided locking screw was placed in the distal row followed by the ulnar sided locking screw in the 2nd row. Additional locking screw was placed in the distal row. C-arm was once again utilized and noted to have good position of hardware with maintained reduction of fracture. 2 locking screws were then placed in the radial styloid position. 2 locking screws were placed in the diaphyseal portion of the plate. Images were obtained in the AP, and lateral and demonstrated adequate reduction of the fracture with maintained reduction of the intraarticular split and neutral volar tilt and appropriate position of the hardware. Final images were transferred to PACS. Wound was irrigated with normal saline. Subcutaneous layer was closed with 4-0 vicryl. Skin was closed with 4-0 nylon. Wound was injected locally with marcaine. Arm was dressed with xeroform, 4x4s, webril, volar splint, and LYLE wrap. Patient tolerated the procedure well and was stable to the recovery room. Anesthesia Type General Estimated Blood Loss minimal Specimen(s) collected/removed None AMBER MILLER MD Mar 24, 2023 08:53
--- NOTE | 2023-03-24 08:54 | Diagnostic Imaging Report ---
INDICATION: Fracture. FINDINGS: Two intraoperative views of the right wrist were obtained. 23 seconds of fluoroscopy was utilized. This was done during open reduction and internal fixation of a distal radial fracture with plate and screws. IMPRESSION: Intraoperative fluoroscopy during ORIF of distal radial fracture as described. Dictated by: Dictated on workstation # [id number]
--- NOTE | 2023-03-24 09:12 | Occ Therapy Progress Note ---
Therapy Progress Note Patient in surgery/recovery for Right radial ORIF. OT to monitor and return at next available opportunity BASIM HOLT OT Mar 24, 2023 09:12
[2023-03-24] MEDS ORDERED: ONDANSETRON INJECTION 4 MG/2 ML (SDV) IVP PRN (09:15)
[2023-03-24] MEDS ORDERED: HYDROmorphone INJECTION 2 MG/ML VIAL IV ONE (09:15)
[2023-03-24] MEDS: DOCUSATE SODIUM 100 MG CAPSULE PO SCH ×2 (10:18→20:44)
[2023-03-24] MEDS: SENNA W/DOCUSATE TABLET PO SCH ×2 (10:19→20:45)
[2023-03-24] MEDS: SENNOSIDES 8.6 MG TABLET PO SCH ×2 (10:20→20:44)
[2023-03-24] MEDS: MUPIROCIN 2% OINTMENT 22 GM TUBE TOP SCH ×2 (10:26→20:44)
[2023-03-24] MEDS: MICONAZOLE 2% POWDER 90 GM TOP SCH ×2 (10:26→20:44)
[2023-03-24] MEDS ORDERED: meTOprolol INJECTION 5 MG/5 ML VIAL IV NR (11:30)
--- NOTE | 2023-03-24 12:04 | Physical Therapy Progress Note ---
Therapy Progress Note Patient refuses treatment. Reports she just got out of surgery and isn't feeling well. Will attempt again at next available time. GELY NARVAEZ PT Mar 24, 2023 12:04
[2023-03-24] MEDS: oxyCODONE IMMEDIATE RELEASE 5 MG TABLET PO PRN ×2 (12:08→20:44)
--- NOTE | 2023-03-24 12:56 | Progress Note ---
ABHIJEET RICARDO 03/24/23 1256: Subjective Date Seen by a Provider: Mar 24, 2023 Time Seen by a Provider: 10:20 Subjective/Events-last exam Patient has just gotten back from surgery. She felt as expected for someone who just underwent surgery. Generalized pain, but no chest pain, no nausea, no vomiting. Ortho report stated that there was no complications and patient tolerated the surgery well. Nurses were there getting the patient situated and put on leg compressions. Patient was alert & oriented. Only complaint the patient had was having a hard time breathing. She is on oxygen via [place]. Daughter was at the bedside. Review of Systems General: No Chills, No Night Sweats; Fatigue, Malaise; No Appetite, No Other HEENT: No Head Aches, No Visual Changes, No Eye Pain, No Ear Pain, No Dysphasia, No Sinus Congestion, No Post Nasal Drip, No Sore Throat, No Other Pulmonary: No Dyspnea, No Cough, No Pleuritic Chest Pain, No Other Cardiovascular: No: Chest Pain, Palpitations, Orthopnea, Paroxysmal Noc. Dyspnea, Edema, Lt Headedness, Other Gastrointestinal: No: Nausea, Vomiting, Abdominal Pain, Diarrhea, Constipation, Melena, Hematochezia, Other Genitourinary: No Dysuria, No Frequency, No Incontinence, No Hematuria, No Retention, No Other Musculoskeletal: arm pain; No: other, neck pain, shoulder pain, back pain, hand pain, leg pain, foot pain Neurological: No: Weakness, Numbness, Incoordination, Change in speech, Confusion, Seizures, Other Objective Exam Last Set of Vital Signs Vital Signs Date Time Temp Pulse Resp B/P (MAP) Pulse Ox O2 Delivery O2 Flow Rate FiO2 03/24/23 12:28 97 03/24/23 12:04 36.5 20 149/93 (111) 95 Nasal Cannula 2.00 03/23/23 21:16 21 Capillary Refill : I&O Intake and Output 03/24/23 00:00 Intake Total 2575 ml Balance 2575 ml Intake Oral 2575 ml # Voids 13 General: Alert, Oriented X3, Cooperative, Mild Distress HEENT: Atraumatic, PERRLA, EOMI, Mucous Memb Moist/[place] Extremities: No Clubbing, No Cyanosis Neuro: Normal Speech Psych/Mental Status: Mental Status NL, Mood NL Results Lab Laboratory Tests 03/24/23 05:20: White Blood Count 6.6, Red Blood Count 3.75L, Hemoglobin 11.3L, Hematocrit 35, Mean Corpuscular Volume 93, Mean Corpuscular Hemoglobin 30, Mean Corpuscular Hemoglobin Concent 32, Red Cell Distribution Width 14.6H, Platelet Count 230, Mean Platelet Volume 10.6, Immature Granulocyte % (Auto) 1, Neutrophils (%) (Auto) 59, Lymphocytes (%) (Auto) 20, Monocytes (%) (Auto) 15H, Eosinophils (%) (Auto) 5, Basophils (%) (Auto) 1, Neutrophils # (Auto) 3.9, Lymphocytes # (Auto) 1.3, Monocytes # (Auto) 1.0, Eosinophils # (Auto) 0.4H, Basophils # (Auto) 0.0, Immature Granulocyte # (Auto) 0.0, Sodium Level 140, Potassium Level 4.2, Chloride Level 103, Carbon Dioxide Level 29, Anion Gap 8, Blood Urea Nitrogen 12, Creatinine 0.78, Estimat Glomerular Filtration Rate 78, BUN/Creatinine Ratio 15, Glucose Level 95, Calcium Level 8.8, Corrected Calcium 9.4, Total Bilirubin 1.2H, Aspartate Amino Transf (AST/SGOT) 13, Alanine Aminotransferase (ALT/SGPT) 12, Alkaline Phosphatase 71, Total Protein 5.7L, Albumin 3.3 Microbiology 03/21/23 MRSA Screen - Final, Complete MRSA not isolated Assessment/Plan Assessment/Plan Assess & Plan/Chief Complaint Assessment: ORIF of right distal radius fracture Multiple falls Weakness Right distal radius fracture surgically fixed Afib CAD HTN COPD Chronic bronchitis Plan: Post-op care Telemetry Pain management Monitor 4th floor ERUM GONSALES DO 03/24/23 1950: Subjective Subjective/Events-last exam Patient improved overall Surgery went well Awaiting [facility] Objective Exam General: Alert, Oriented X3, Cooperative, No Acute Distress Lungs: Clear to Auscultation, Normal Air Movement Heart: Regular Rate, Normal S1, Normal S2, No Murmurs Psych/Mental Status: Mental Status NL, Mood NL Assessment/Plan Assessment/Plan Assess & Plan/Chief Complaint Pain control Restart OAC soon Monitor on tely Supervisory-Addendum Brief Verification & Attestation Participated in pt care: history, MDM, physical Personally performed: exam, history, MDM, supervision of care Care discussed with: Medical Student Procedures: n/a Results interpretation: Verified all documentation Verification and Attestation of Medical Student E/M Service A medical student performed and documented this service in my presence. I reviewed and verified all information documented by the medical student and made modifications to such information, when appropriate. I personally performed the physical exam and medical decision making. Erum Gonsales, Mar 24, 2023,19:49 ABHIJEET RICARDO Mar 24, 2023 12:56 ERUM GONSALES DO Mar 24, 2023 19:50
--- NOTE | 2023-03-24 13:43 | Cardiology Progress Note ---
Subjective Date Seen by Provider: Mar 24, 2023 Time Seen by Provider: 13:42 Subjective/Events-last exam Patient was seen at bedside, laying down comfortably, feeling better Had her surgery done earlier Objective-Cardiology Exam Last Set of Vital Signs Vital Signs 03/23/23 03/24/23 03/24/23 21:16 12:04 12:28 Temp 36.5 Pulse 97 Resp 20 B/P (MAP) 149/93 (111) Pulse Ox 95 O2 Delivery Nasal Cannula O2 Flow Rate 2.00 FiO2 21 I&O Intake and Output 03/24/23 00:00 Intake Total 2575 ml Balance 2575 ml Intake Oral 2575 ml # Voids 13 General: Alert, Oriented X3, Cooperative, Mild Distress HEENT: Atraumatic, PERRLA, EOMI, Mucous Memb Moist/[place] Lungs: Clear to Auscultation, Normal Air Movement Heart: Regular Rate, Normal S1, Normal S2, No Murmurs Abdomen: Normal Bowel Sounds, Soft Extremities: No Clubbing, No Cyanosis Neuro: Normal Speech Psych/Mental Status: Mental Status NL, Mood NL Results Lab Laboratory Tests 03/24/23 05:20 A/P-Cardiology Admission Diagnosis right wrist fracture CAD Atrial fibrillation Hypertension Assessment/Plan Right wrist fracture, postoperative day #[address] Anglin Recovering well Permanent atrial fibrillation, rate controlled, maintained on Xarelto Intolerant to multiple antiarrhythmic medications, including sotalol and amiodarone, patient tolerated Multaq, did not tolerate Tikosyn. She has seen by Dr. Ricci in the past but does not want to go to for due to the distance and difficulty to get to . Accepted atrial fibrillation as permanent, will continue with rate control. Patient was tachycardic earlier, given Lopressor IV We will place on telemetry Xarelto currently on hold, planning to resume Xarelto once deemed reasonable by the surgeon 2D echo was done in September 2021 with normal LV size, mild LVH, EF 50 to 55%, grade 1 diastolic dysfunction, left atrial dilatation 5.38 cm, mild mitral regurgitation, mild to moderate tricuspid regurgitation, PA pressure 40 to 45 mmHg. [id number] score of 4, yearly risk of stroke without oral anticoagulation is 4 percent. Maintained on Xarelto which is currently on hold Coronary artery disease, history of CABG 4 in 2003. Cardiac catheterization August 25, 2016 revealing severe enterprise coronary artery disease with patent bypass grafts including SWEET to LAD, vein graft obtuse marginal, vein graft to the right coronary artery was small vessel disease distally. Had an abnormal stress test with cardiac catheterization on March 23, 2018 showing patent SWEET to LAD vein graft to the obtuse marginal and vein graft to the right coronary artery with small vessel disease distally, improvement in the left ventricular function, calcified right renal artery with moderate to severe stenosis. continue to monitor Underwent LHC with Dr. Bang on 01/16/22 showing stable CAD without interve ntion. Congestive heart failure, improved, last echocardiogram was done in September 2021 ejection fraction 50-55 percent, grade 1 diastolic dysfunction, left atrial dilatation measuring 5.38 cm, mild MR, PA 40-45 mmHg. History of gastritis, maintained on PPI Hypertension, patient reports episodes of hypotension recently. I will hold blood pressure medications at this time and continue to monitor. Intolerance to isosorbide secondary to headache. History of sinus bradycardia, intolerance to beta blockers and/or calcium channel blockers, currently asymptomatic. Peripheral arterial disease with renal artery stenosis which appeared to be moderate to moderately severe on the right renal artery during coronary angiogram on March 23, 2018. Continue to monitor at this time Hyperlipidemia, continue to monitor Small infrarenal abdominal aortic aneurysm, CT scan was done in March 2013 measuring the aorta at 3.9 cm, ultrasound of the abdominal aorta reported as focal ectasia in the infrarenal abdominal aorta. Abdominal aortic ultrasound done in January 2016 revealed no evidence of aneurysm. Repeat CT scan in December 2018 reported as distal abdominal aortic aneurysm measuring 3.9 cm AAA evaluated during 01/16/22 C showing stable distal AAA 4cm with widely patent iliac and common femoral arteries. Mild bilateral carotid stenosis, last carotid ultrasound done in July 2022 Peripheral edema, reporting improvement. Continue to monitor Obstructive sleep apnea, currently not on CPAP, follows with mail officer. MOHSEN MORRIS MD Mar 24, 2023 13:43
[2023-03-24] MEDS: meTOprolol TARTRATE (IR) 25 MG TABLET PO SCH (20:44)
[2023-03-25] VITALS (7 sets, daily range): BP systolic 132–155; BP diastolic 64–89
[2023-03-25] MEDS: oxyCODONE IMMEDIATE RELEASE 5 MG TABLET PO PRN ×4 (02:30→20:02)
[2023-03-25 05:18] LABS: BASOPHILS % (AUTO) 0 % (0-10); EOSINOPHILS # (AUTO) 0.1 10^3/uL (0.0-0.3); EOSINOPHILS % (AUTO) 1 % (0-10); HEMATOCRIT 35 % (35-52); HEMOGLOBIN 11.4 g/dL (11.5-16.0); LYMPHOCYTES # (AUTO) 1.1 10^3/uL (1.0-4.0); LYMPHOCYTES % (AUTO) 14 % (12-44); MEAN CORPUSCULAR HEMOGLOBIN 31 pg (25-34); MEAN CORPUSCULAR HGB CONC 33 g/dL (32-36); MEAN CORPUSCULAR VOLUME 93 fL (80-99); MEAN PLATELET VOLUME 10.6 fL (9.0-12.2); MONOCYTES % (AUTO) 12 % (0-12); NEUTROPHILS # (AUTO) 5.8 10^3/uL (1.8-7.8); NEUTROPHILS % (AUTO) 72 % (42-75); PLATELET COUNT 263 10^3/uL (130-400); WHITE BLOOD COUNT 8.1 10^3/uL (4.3-11.0)
[2023-03-25 05:39] LABS: ALBUMIN 3.2 GM/DL (3.2-4.5); BILIRUBIN,TOTAL 0.7 MG/DL (0.1-1.0); CALCIUM 8.5 MG/DL (8.5-10.1); CREATININE SERUM 0.73 MG/DL (0.60-1.30); POTASSIUM 4.3 MMOL/L (3.6-5.0); TOTAL PROTEIN 6.1 GM/DL (6.4-8.2)
--- NOTE | 2023-03-25 08:24 | Anesthesia-General Post-Op ---
General Patient Condition Mental Status/LOC: Same as Preop Cardiovascular: Satisfactory Nausea/Vomiting: Absent Respiratory: Satisfactory Pain: Controlled Complications: Absent Post Op Complications Complications None Follow Up Care/Instructions Patient Instructions None needed. Anesthesia/Patient Condition Patient Condition Patient is doing well, no complaints, stable vital signs, no apparent adverse anesthesia problems. No complications reported per nursing. NICOLETTE NUÑEZ CRNA Mar 25, 2023 08:24
--- NOTE | 2023-03-25 08:32 | Cardiology Progress Note ---
Subjective Date Seen by Provider: Mar 25, 2023 Time Seen by Provider: 08:31 Subjective/Events-last exam Patient was seen at bedside, sitting comfortably. Feeling better Objective-Cardiology Exam Last Set of Vital Signs Vital Signs 03/23/23 03/25/23 03/25/23 21:16 03:53 07:00 Temp 36.4 Pulse 79 Resp 20 B/P (MAP) 134/78 (96) Pulse Ox 97 O2 Delivery Nasal Cannula O2 Flow Rate 2.00 2.00 FiO2 21 I&O Intake and Output 03/24/23 23:59 Intake Total 1670 ml Output Total 250 ml Balance 1420 ml Intake Oral 1620 ml IV Total 50 ml Output Urine Total 250 ml # Voids 5 General: Alert, Oriented X3, Cooperative, No Acute Distress HEENT: Atraumatic, PERRLA, EOMI, Mucous Memb Moist/[place] Lungs: Clear to Auscultation, Normal Air Movement Heart: Regular Rate, Normal S1, Normal S2, No Murmurs Abdomen: Normal Bowel Sounds, Soft Extremities: No Clubbing, No Cyanosis Neuro: Normal Speech Psych/Mental Status: Mental Status NL, Mood NL Results Lab Laboratory Tests 03/25/23 05:09 A/P-Cardiology Admission Diagnosis right wrist fracture CAD Atrial fibrillation Hypertension Assessment/Plan Right wrist fracture, postoperative day #[address] Anglin Recovering well Permanent atrial fibrillation, rate controlled, maintained on Xarelto Intolerant to multiple antiarrhythmic medications, including sotalol and amiodarone, patient tolerated Multaq, did not tolerate Tikosyn. She has seen by Dr. Ricci in the past but does not want to go to for due to the distance and difficulty to get to . Accepted atrial fibrillation as permanent, will continue with rate control. Continue to monitor Xarelto currently on hold, planning to resume Xarelto once deemed reasonable by the surgeon 2D echo was done in September 2021 with normal LV size, mild LVH, EF 50 to 55%, grade 1 diastolic dysfunction, left atrial dilatation 5.38 cm, mild mitral regurgitation, mild to moderate tricuspid regurgitation, PA pressure 40 to 45 mmHg. [id number] score of 4, yearly risk of stroke without oral anticoagulation is 4 percent. Maintained on Xarelto which is currently on hold Coronary artery disease, history of CABG 4 in 2003. Cardiac catheterization August 25, 2016 revealing severe [place] coronary artery disease with patent bypass grafts including SWEET to LAD, vein graft obtuse marginal, vein graft to the right coronary artery was small vessel disease distally. Had an abnormal stress test with cardiac catheterization on March 23, 2018 showing patent SWEET to LAD vein graft to the obtuse marginal and vein graft to the right coronary artery with small vessel disease distally, improvement in the left ventricular function, calcified right renal artery with moderate to severe stenosis. continue to monitor Underwent C with Dr. Bang on 01/16/22 showing stable CAD without intervention. Congestive heart failure, improved, last echocardiogram was done in September 2021 ejection fraction 50-55 percent, grade 1 diastolic dysfunction, left atrial dilatation measuring 5.38 cm, mild MR, PA 40-45 mmHg. History of gastritis, maintained on PPI Hypertension, patient reports episodes of hypotension recently. I will hold blood pressure medications at this time and continue to monitor. Intolerance to isosorbide secondary to headache. History of sinus bradycardia, intolerance to beta blockers and/or calcium channel blockers, currently asymptomatic. Peripheral arterial disease with renal artery stenosis which appeared to be moderate to moderately severe on the right renal artery during coronary angiogram on March 23, 2018. Continue to monitor at this time Hyperlipidemia, continue to monitor Small infrarenal abdominal aortic aneurysm, CT scan was done in March 2013 measuring the aorta at 3.9 cm, ultrasound of the abdominal aorta reported as focal ectasia in the infrarenal abdominal aorta. Abdominal aortic ultrasound done in January 2016 revealed no evidence of aneurysm. Repeat CT scan in December 2018 reported as distal abdominal aortic aneurysm measuring 3.9 cm AAA evaluated during 01/16/22 C showing stable distal AAA 4cm with widely patent iliac and common femoral arteries. Mild bilateral carotid stenosis, last carotid ultrasound done in July 2022 Peripheral edema, reporting improvement. Continue to monitor Obstructive sleep apnea, currently not on CPAP, follows with [facility]. MOHSEN MORRIS MD Mar 25, 2023 08:32
[2023-03-25] MEDS: meTOprolol TARTRATE (IR) 25 MG TABLET PO SCH ×2 (09:40→20:01)
[2023-03-25] MEDS: DOCUSATE SODIUM 100 MG CAPSULE PO SCH ×2 (09:41→19:47)
[2023-03-25] MEDS: SENNOSIDES 8.6 MG TABLET PO SCH ×2 (09:41→19:47)
[2023-03-25] MEDS: SENNA W/DOCUSATE TABLET PO SCH ×2 (09:41→19:47)
[2023-03-25] MEDS: MUPIROCIN 2% OINTMENT 22 GM TUBE TOP SCH ×2 (09:42→20:03)
[2023-03-25] MEDS: MICONAZOLE 2% POWDER 90 GM TOP SCH ×2 (09:42→20:03)
--- NOTE | 2023-03-25 10:03 | Physical Therapy Daily Note ---
PT Daily Note-Current Subjective Patient agrees to PT. Pain Section J - Health Conditions 1. Rarely or not at all 2. Occasionally 3. Frequently 4. Almost constantly 8. Unable to answer Pain Effect on Sleep: 1 Pain Interference with Therapy: 1 Pain Interference w/Day-to-Day: 1 Mental Status Patient Orientation: Normal For Age Transfers SCALE: Activities may be completed with or without assistive devices. 3-Qnglpddubx-mjzblzn completes the activity by him/herself with no assistance from a helper. 5-Set-up or Clean-up Assistance-helper sets up or cleans up; patient completes activity. [place] assists only prior to or following the activity. 4-Supervision or Touching Assistance-helper provides verbal cues and/or touching/steadying and/or contact guard assistance as patient completes activity. Assistance may be provided throughout the activity or intermittently. 3-Partial/Moderate Assistance-helper does LESS THAN HALF the effort. [place] lifts, holds or supports trunk or limbs, but provides less than half the effort. 2-Substantial/Maximal Assistance-helper does MORE THAN HALF the effort. [place] lifts or holds trunk or limbs and provides more than half the effort. 6-Zpkyhhrad-jrxkow does ALL the effort. Patient does none of the effort to complete the activity. Or, the assistance of 2 or more helpers is required for the patient to complete the activity. If activity was not attempted, code reason: 7-Patient Refused. 9-Not Applicable-not attempted and the patient did not perform the activity before the current illness, exacerbation or injury. 10-Not Attempted due to Environmental Limitations-(lack of equipment, weather restraints, etc.). 88-Not Attempted due to Medical Conditions or Safety Concerns. Sit to Stand (QC): 2 assist of 2 Weight Bearing Right Lower Extremity: Right Weight Bearing/Tolerated Left Lower Extremity: Left Weight Bearing/Tolerated Gait Training Distance: 100' Walk 10 feet (QC): 3 Walk 50 ft with 2 Turns(QC): 3 Gait Assistive Device: Cane Small Base Quad slow, trunk flexed posture/minimal foot clearance Exercises Seated Therapy Exercises: Ankle pumps, Long arc quads, Hip flexion Seated Reps: 15 Assessment Patient tolerated treatment well and is progressing slowly with improving gross motor function. Patient continues to require assistance with all mobility and is unable to safely perform on own. Patient is max assist of 2 with sit to stand due to bilateral LE weakness. Patient will benefit from continued skilled therapy to ensure safe return to home. PT Usp Goals Usp Goals PT Iron Caster Goals Time Frame: Apr 17, 2023 Roll Left & Right (QC): 4 Sit to Lying (QC): 4 Lying-Sitting on Side/Bed(QC): 4 Sit to Stand (QC): 4 Chair/Ahm-pg-Ykcpa Xfer(QC): 4 Toilet Transfer (QC): 4 Walk 10 feet (QC): 4 Walk 50ft with 2 Turns (QC): 4 PT Plan Treatment/Plan Treatment Plan: Continue Plan of Care Treatment Plan: Bed Mobility, Education, Functional Activity [place], Functional Strength, Gait, Safety, Therapeutic Exercise, Transfers Treatment Duration: Apr 17, 2023 Frequency: 6 times per week Estimated Hrs Per Day: .25 hour per day Time Time In: 920 Time Out: 939 DATE: Mar 25, 2023 Total Billed Treatment Time: 19 Total Billed Treatment 1 visit GT 19 min LEE CONNORS PT Mar 25, 2023 10:03
--- NOTE | 2023-03-25 11:27 | Progress Note ---
ABHIJEET RICARDO 03/25/23 1127: Subjective Date Seen by a Provider: Mar 25, 2023 Time Seen by a Provider: 09:00 Subjective/Events-last exam Patient states that she is feeling a lot better since having the surgery. She is able to move her right hand in ways she hasn't been able to do since the fracture. Still having pain in her arm, but the pain medication is helping. Still having some discomfort in her legs and the bruising has gone down a bit on the lateral sides of her lower legs. Denies any dizziness, chest pain, nausea, and vomiting. Has been able to ambulate and was able to walk down the lim and back. Hospital course: 77-year-old female with history of CAD & Afib who presented to the ED with multiple falls, with a fall resulting in a broken wrist on 03/17/28. She was admitted to [facility]surg on 03/20/23 where she stayed for supportive care and monitoring until her ortho surgery. During her stay, patient was in a lot of pain from her arm, but no other complications occurred. On 03/24/28, patient underwent open reduction & internal fixation of right distal radius fracture. Patient tolerated the procedure well and was stable to the recovery room. Patient did not have any other complications during the rest of her stay and was discharged on 03/25/23. Review of Systems General: No Chills, No Night Sweats, No Fatigue, No Malaise, No Appetite, No Other HEENT: No Head Aches, No Visual Changes, No Eye Pain, No Ear Pain, No Dysphasia, No Sinus Congestion, No Post Nasal Drip, No Sore Throat, No Other Pulmonary: No Dyspnea, No Cough, No Pleuritic Chest Pain, No Other Cardiovascular: No: Chest Pain, Palpitations, Orthopnea, Paroxysmal Noc. Dyspnea, Edema, Lt Headedness, Other Gastrointestinal: No: Nausea, Vomiting, Abdominal Pain, Diarrhea, Constipation, Melena, Hematochezia, Other Genitourinary: No Dysuria, No Frequency, No Incontinence, No Hematuria, No Retention, No Other Musculoskeletal: arm pain, leg pain; No: other, neck pain, shoulder pain, back pain, hand pain, foot pain Neurological: No: Weakness, Numbness, Incoordination, Change in speech, Confusion, Seizures, Other Objective Exam Last Set of Vital Signs Vital Signs Date Time Temp Pulse Resp B/P (MAP) Pulse Ox O2 Delivery O2 Flow Rate FiO2 03/25/23 09:30 Nasal Cannula 2.00 03/25/23 08:39 36.8 88 18 146/74 (98) 91 03/23/23 21:16 21 Capillary Refill : I&O Intake and Output 03/24/23 23:59 Intake Total 1670 ml Output Total 250 ml Balance 1420 ml Intake Oral 1620 ml IV Total 50 ml Output Urine Total 250 ml # Voids 5 General: Alert, Oriented X3, Cooperative, No Acute Distress HEENT: Atraumatic, PERRLA, EOMI Lungs: Clear to Auscultation, Normal Air Movement Heart: Regular Rate, Normal S1, Normal S2 Neuro: Normal Speech Psych/Mental Status: Mental Status NL, Mood NL Results Lab Laboratory Tests 03/25/23 05:09: White Blood Count 8.1, Red Blood Count 3.73L, Hemoglobin 11.4L, Hematocrit 35, Mean Corpuscular Volume 93, Mean Corpuscular Hemoglobin 31, Mean Corpuscular Hemoglobin Concent 33, Red Cell Distribution Width 14.7H, Platelet Count 263, Mean Platelet Volume 10.6, Immature Granulocyte % (Auto) 1, Neutrophils (%) (Auto) 72, Lymphocytes (%) (Auto) 14, Monocytes (%) (Auto) 12, Eosinophils (%) (Auto) 1, Basophils (%) (Auto) 0, Neutrophils # (Auto) 5.8, Lymphocytes # (Auto) 1.1, Monocytes # (Auto) 1.0, Eosinophils # (Auto) 0.1, Basophils # (Auto) 0.0, Immature Granulocyte # (Auto) 0.0, Sodium Level 138, Potassium Level 4.3, Chloride Level 104, Carbon Dioxide Level 23, Anion Gap 11, Blood Urea Nitrogen 13, Creatinine 0.73, Estimat Glomerular Filtration Rate 85, BUN/Creatinine Ratio 18, Glucose Level 105, Calcium Level 8.5, Corrected Calcium 9.1, Total Bilirubin 0.7, Aspartate Amino Transf (AST/SGOT) 17, Alanine Aminotransferase (ALT/SGPT) 13, Alkaline Phosphatase 69, Total Protein 6.1L, Albumin 3.2 Microbiology 03/21/23 MRSA Screen - Final, Complete MRSA not isolated Assessment/Plan Assessment/Plan Assess & Plan/Chief Complaint Assessment: ORIF of right distal radius fracture Multiple falls Weakness Right distal radius fracture surgically fixed Afib CAD HTN COPD Chronic bronchitis Plan: Post-op care 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 consult Pain management Monitor 4th floor ERUM GONSALES DO 03/26/23 0523: Subjective Subjective/Events-last exam Pain controlled Participation in therapy is good Assessment/Plan Assessment/Plan Assess & Plan/Chief Complaint NHP Supervisory-Addendum Brief Verification & Attestation Participated in pt care: history, MDM, physical Personally performed: exam, history, MDM, supervision of care Care discussed with: Medical Student Procedures: n/a Results interpretation: Verified all documentation Verification and Attestation of Medical Student E/M Service A medical student performed and documented this service in my presence. I reviewed and verified all information documented by the medical student and made modifications to such information, when appropriate. I personally performed the physical exam and medical decision making. Erum Gonsales, Mar 26, 2023,05:22 ABHIJEET RICARDO Mar 25, 2023 11:27 ERUM GONSALES DO Mar 26, 2023 05:23
--- NOTE | 2023-03-25 11:28 | Occupational Ther Daily Note ---
OT Current Status-Daily Note Subjective Up in recliner w/ pillow supporting RUE s/p ORIF radial fx yesterday Mental Status/Objective Patient Orientation: Person, Place, Time, Situation ADL-Treatment Unable to stand from recloner unassisted, painful right hand and digits, requires adaptive utensils to feed self right hand. Encouraged ROM for edema reduction, Mod assist for LB ADL and garments, socks max assist, UB Min assit w/ 50 % sequence cues for don and doff Therapy Code Descriptions/Definitions Functional [place] Measure: 0=Not Assessed/NA 4=Minimal Assistance 1=Total Assistance 5=Supervision or Setup 2=Maximal Assistance 6=Modified [place] 3=Moderate Assistance 7=Complete IndependenceSCALE: Activities may be completed with or without assistive devices. 0-Bpjcfpnzij-hhmfmzu completes the activity by him/herself with no assistance from a helper. 5-Set-up or Clean-up Assistance-helper sets up or cleans up; patient completes activity. [place] assists only prior to or following the activity. 4-Supervision or Touching Assistance-helper provides verbal cues and/or touching/steadying and/or contact guard assistance as patient completes activity. Assistance may be provided throughout the activity or intermittently. 3-Partial/Moderate Assistance-helper does LESS THAN HALF the effort. [place] lifts, holds or supports trunk or limbs, but provides less than half the effort. 2-Substantial/Maximal Assistance-helper does MORE THAN HALF the effort. [place] lifts or holds trunk or limbs and provides more than half the effort. 5-Jkkkwrdxl-hrhlsi does ALL the effort. Patient does none of the effort to complete the activity. Or, the assistance of 2 or more helpers is required for the patient to complete the activity. If activity was not attempted, code reason: 7-Patient Refused. 9-Not Applicable-not attempted and the patient did not perform the activity before the current illness, exacerbation or injury. 10-Not Attempted due to Environmental Limitations-(lack of equipment, weather restraints, etc.). 88-Not Attempted due to Medical Conditions or Safety Concerns. Eating (QC): 5 Oral Hygiene (QC): 5 Upper Body Dressing (QC): 4 Lower Body Dressing (QC): 3 On/Off Footwear: 2 Toileting Hygiene (QC): 3 Toilet Transfer (QC): 3 Requires extra time to perform ADL. Education OT Patient Education: Correct positioning, Exercise program, Modified ADL techniques, Progress toward Goal/Update tx plan, Purpose of tx/functional activities, Reviewed precautions, Rehab process, Safety issues, Transfer techniques, Use of adapted equipment Teaching Recipient: Patient Teaching Methods: Demonstration, Discussion Response to Teaching: Reinforcement Needed OT Fdc Goals Fdc Goals Time Frame: Apr 05, 2023 Eating (QC): 6 Oral Hygiene (QC): 6 Toileting Hygiene (QC): 3 Shower/Bathe Self (QC): 3 Upper Body Dressing (QC): 4 Lower Body Dressing (QC): 3 On/Off Footwear (QC): 4 1=Demonstrate adherence to instructed precautions during ADL tasks. 2=Patient will verbalize/demonstrate understanding of assistive devices/modifications for ADL. 3=Patient will improve strength/tolerance for activity to enable patient to perform ADL's. OT Education/Plan Problem List/Assessment Assessment: Decreased Activ Tolerance, Decreased UE Strength, Impaired I ADL's, Impaired Self-Care Skills, Restricted Funct UE ROM Discharge Recommendations Plan/Recommendations: Continue POC Therapy Discharge Recommendati: Post Acute OT Treatment Plan/Plan of Care Treatment,Training & Education: Yes Patient would benefit from OT for education, treatment and training to promote independence in ADL's, mobility, safety and/or upper extremity function for ADL's. Plan of Care: ADL Retraining, Caregiver Training, Functional Mobility, Group Exercise/Act as Ind, Orthotic Fitting/Training, UE Funct Exercise/Act Treatment Duration: Apr 05, 2023 Frequency: 3 times per week (3-5 times per week) Estimated Hrs Per Day: .25 hour per day Agreement: Yes Rehab Potential: Guarded Time Start Time: 09:20 Stop Time: 09:38 DATE: Mar 25, 2023 Total Time Billed (hr/min): 18 Billed Treatment Time ADL 18 min BASIM HOLT OT Mar 25, 2023 11:28
[2023-03-26 03:34] VITALS: BP 149/72
[2023-03-26] MEDS ORDERED: OXYB10TA29 PO (06:02)
[2023-03-26] MEDS ORDERED: VALS160T29 PO (06:02)
[2023-03-26] MEDS ORDERED: OXC5T PO (06:02)
[2023-03-26] MEDS ORDERED: SENN-271 PO (06:02)
[2023-03-26] MEDS ORDERED: INUL1TAB3 PO (06:02)
[2023-03-26] MEDS ORDERED: CYAN500T8 PO (06:02)
[2023-03-26] MEDS ORDERED: MICO90PO TOP (06:02)
[2023-03-26] MEDS ORDERED: TRAM50TA3 PO (06:02)
[2023-03-26] MEDS ORDERED: RIVA20TA PO (06:02)
[2023-03-26] MEDS ORDERED: PARO40TA3 PO (06:02)
[2023-03-26] MEDS ORDERED: EZET10TA49 PO (06:02)
[2023-03-26] MEDS ORDERED: ZOLP10TA PO (06:02)
[2023-03-26] MEDS ORDERED: METO-333 PO (06:02)
[2023-03-26] MEDS ORDERED: CHOL10007 PO (06:02)
[2023-03-26] MEDS ORDERED: AMLO-250 PO (06:02)
[2023-03-26] MEDS ORDERED: FURO20TA4 PO (06:02)
[2023-03-26] MEDS ORDERED: CETI10TA17 PO (06:02)
[2023-03-26] MEDS ORDERED: TRZ50T PO (06:02)
[2023-03-26] MEDS ORDERED: POTA-164 PO (06:02)
[2023-03-26] MEDS ORDERED: ATOR40TA70 PO (06:02)
[2023-03-26] MEDS ORDERED: TERA5CAP10 PO (06:02)
[2023-03-26] MEDS ORDERED: GABA300C PO (06:02)
[2023-03-26] MEDS ORDERED: OMEP20CA18 PO (06:02)
--- NOTE | 2023-03-26 06:04 | Discharge Inst-Skilled Nursing ---
Discharge Inst-Skilled NF Reconcile Patient Problems Problems Reviewed?: Yes Chief Complaint Chief complaint: Multiple falls in the past 4 days HPI: This is a 77-year-old female clinic patient of Dr. Spring who has a past medical history of CAD and atrial fibrillation who presented to the ER after falling for the second time within 12 hours. On Wednesday she fell and broke her right wrist which is scheduled to be repaired surgically by Dr. Anglin on Wednesday. Her labs reviewed no acute abnormality but due to the extensiveness and numerous falls she appears to be at high risk for decompensation and since she lives at home alone she will be admitted to the hospital for observation. Patient Instructions Patient Problems: Right arm fracture Falls Consult/Follow Up/Orders Follow Up Appt.: NH rounds Dr Zhu Skilled NF Admit to: Via [facility] ([facility]) I certify that [facility] services are required to be given on an inpatient basis because of the above named patient's need for jail care on a continuing basis for the conditions(s) for which he/she was receiving inpatient hospital services prior to his/her transfer to the [facility]. Halfway Facility Order: Nursing Services, [employer] [place]-Evaluate & Treat, Physical Therapy-Evaluate & Treat Oxygen Delivery Method: Nasal Cannula Discharge Diet: No Restrictions Resuscitation Status: Full Code New & Resume Previous Orders New Medications: Miconazole Nitrate (Lotrimin AF) 2 % Powder 0 GM TOP BID, #1 EA twice daily Oxycodone Hcl (Oxyir Tablet) 5 Mg Tab 5 MG PO Q4HR PRN for PAIN-SEE DOSE INSTRUCTIONS, #20 TAB Sennosides/Docusate Sodium (Stool Softener-Laxative Tablet) 8.6 Mg-50 Mg Tablet 1 EA PO BID, #60 TAB Changed Medications: Rivaroxaban (Xarelto) 20 Mg Tablet 20 MG PO DAILY, #30 TAB (Changed from: Removed Instructions) Continued Medications: Amlodipine Besylate (Amlodipine Besylate) 5 Mg Tablet 5 MG PO DAILY, #30 TAB (This prescription has been renewed) Atorvastatin Calcium (Atorvastatin Calcium) 40 Mg Tablet 40 MG PO DAILY, #30 TAB (This prescription has been renewed) Cetirizine HCl (Cetirizine HCl) 10 Mg Tablet 10 MG PO DAILY, #30 TAB (This prescription has been renewed) Cholecalciferol (Vitamin D3) (Vitamin D3) 25 Mcg (1000 Unit) Capsule 25 MCG PO DAILY, #30 CAP (This prescription has been renewed) Cyanocobalamin (Vitamin B-12) (Vitamin B-12) 500 Mcg Tablet 500 MCG PO DAILY, #30 TAB (This prescription has been renewed) Ezetimibe (Ezetimibe) 10 Mg Tablet 10 MG PO DAILY, #30 TAB (This prescription has been renewed) Furosemide (Furosemide) 20 Mg Tablet 20 MG PO DAILY, #30 TAB (This prescription has been renewed) Gabapentin (Neurontin) 300 Mg Capsule 600 MG PO BID PRN for PAIN-BREAKTHROUGH, #60 CAP (This prescription has been renewed) TAKES 2 (300MG) CAPS Inulin/Chromium Picolinate (Fiber Select Gummies Tab Chew) 2 Gram-100 Mcg Tab.chew 1 EACH PO DAILY, #30 TAB (This prescription has been renewed) Metoprolol Tartrate (Metoprolol Tartrate) 25 Mg Tablet 25 MG PO BID, #60 TAB (This prescription has been renewed) Omeprazole (Omeprazole) 20 Mg Capsule.dr 20 MG PO HS, #30 CAP (This prescription has been renewed) Oxybutynin Chloride (Oxybutynin Chloride ER) 10 Mg Tab.er.24 10 MG PO DAILY, #30 TAB (This prescription has been renewed) Paroxetine HCl (Paroxetine HCl) 40 Mg Tablet 40 MG PO DAILY, #30 TAB (This prescription has been renewed) Potassium Chloride (Klor-Con M10) 10 Meq Tab.er.prt 10 MEQ PO DAILY, #30 EACH (This prescription has been renewed) Terazosin HCl (Terazosin HCl) 5 Mg Capsule 5 MG PO DAILY, #30 CAP (This prescription has been renewed) Tramadol HCl (Tramadol HCl) 50 Mg Tablet 50 MG PO Q8H PRN for PAIN-MODERATE (5-7), #20 TAB (This prescription has been renewed) Trazodone HCl (Trazodone HCl) 50 Mg Tablet 50 MG PO HS, #30 TAB (This prescription has been renewed) Valsartan (Valsartan) 160 Mg Tablet 160 MG PO DAILY, #30 TAB (This prescription has been renewed) Zolpidem Tartrate (Ambien) 10 Mg Tablet 10 MG PO HS, #30 TAB (This prescription has been renewed) Erum Gonsales Mar 26, 2023 06:04 ERUM GONSALES DO Mar 26, 2023 06:04
--- NOTE | 2023-03-26 06:05 | Discharge Summary ---
Diagnosis/Chief Complaint Date of Admission Mar 20, 2023 at 13:48 Date of Discharge Discharge Date: Mar 26, 2023 Discharge Diagnosis Assessment: ORIF of right distal radius fracture Multiple falls Weakness Right distal radius fracture surgically fixed Afib CAD HTN COPD Chronic bronchitis Discharge Summary Discharge Physical Examination Allergies: Coded Allergies: sulfamethoxazole (Verified Allergy, Severe, Hives, 03/19/23) trimethoprim (Verified Allergy, Severe, Hives, 03/19/23) adhesive (Verified Allergy, Intermediate, Rash, 03/19/23) Iodinated Contrast Media (Unverified Allergy, Mild, NAUSEA, 03/19/23) Pt states it's the IV dye used in heart tests not CT scans penicillin G (Verified Allergy, Mild, RASH, 03/19/23) RASH Vitals & I&Os Vital Signs Date Time Temp Pulse Resp B/P (MAP) Pulse Ox O2 Delivery O2 Flow Rate FiO2 03/26/23 10:08 Room Air 0.00 03/26/23 08:26 36.3 76 20 135/63 (87) 94 03/23/23 21:16 21 General Appearance: Alert, Oriented X3, Cooperative Respiratory: Clear to Auscultation Cardiovascular: Regular Rate Psych/Mental Status: Mental Status NL Hospital Course Was the Problem List Reviewed?: Yes Hospital course: 77-year-old female with history of CAD & Afib who presented to the ED with multiple falls, with a fall resulting in a broken wrist on 03/17/28. She was admitted to med-surg on 03/20/23 where she stayed for supportive care and monitoring until her ortho surgery. During her stay, patient was in a lot of pain from her arm, but no other complications occurred. On 03/24/28, patient underwent open reduction & internal fixation of right distal radius fracture. Patient tolerated the procedure well and was stable to the recovery room. Patient did not have any other complications during the rest of her stay and was discharged on 03/25/23. Labs (last 24 hrs) Laboratory Tests 03/20/23 13:15: White Blood Count 8.2, Red Blood Count 3.73L, Hemoglobin 11.5, Hematocrit 37, Mean Corpuscular Volume 100H, Mean Corpuscular Hemoglobin 31, Mean Corpuscular Hemoglobin Concent 31L, Red Cell Distribution Width 15.2H, Platelet Count 205, Mean Platelet Volume 11.2, Immature Granulocyte % (Auto) 0, Neutrophils (%) (Auto) 75, Lymphocytes (%) (Auto) 12, Monocytes (%) (Auto) 11, Eosinophils (%) (Auto) 2, Basophils (%) (Auto) 0, Neutrophils # (Auto) 6.2, Lymphocytes # (Auto) 1.0, Monocytes # (Auto) 0.9, Eosinophils # (Auto) 0.1, Basophils # (Auto) 0.0, Immature Granulocyte # (Auto) 0.0, Sodium Level 138, Potassium Level 4.8, Chloride Level 104, Carbon Dioxide Level 25, Anion Gap 9, Blood Urea Nitrogen 11, Creatinine 0.75, Estimat Glomerular Filtration Rate 82, BUN/Creatinine Ratio 15, Glucose Level 96, Calcium Level 8.3L, Total Bilirubin 1.2H, Direct Bilirubin 0.4H, Indirect Bilirubin 0.8, Aspartate Amino Transf (AST/SGOT) 20, Alanine Aminotransferase (ALT/SGPT) 12, Alkaline Phosphatase 68, Total Protein 6.1L, Albumin 3.3 03/21/23 05:40: White Blood Count 7.2, Red Blood Count 3.48L, Hemoglobin 10.4L, Hematocrit 33L, Mean Corpuscular Volume 95, Mean Corpuscular Hemoglobin 30, Mean Corpuscular Hemoglobin Concent 31L, Red Cell Distribution Width 14.9H, Platelet Count 175, Mean Platelet Volume 10.5, Immature Granulocyte % (Auto) 0, Neutrophils (%) (Auto) 66, Lymphocytes (%) (Auto) 17, Monocytes (%) (Auto) 11, Eosinophils (%) (Auto) 5, Basophils (%) (Auto) 0, Neutrophils # (Auto) 4.8, Lymphocytes # (Auto) 1.2, Monocytes # (Auto) 0.8, Eosinophils # (Auto) 0.4H, Basophils # (Auto) 0.0, Immature Granulocyte # (Auto) 0.0, Sodium Level 138, Potassium Level 4.0, Chloride Level 106, Carbon Dioxide Level 26, Anion Gap 6, Blood Urea Nitrogen 10, Creatinine 0.71, Estimat Glomerular Filtration Rate 88, BUN/Creatinine Ratio 14, Glucose Level 101, Calcium Level 7.9L, Total Bilirubin 1.4H, Aspartate Amino Transf (AST/SGOT) 15, Alanine Aminotransferase (ALT/SGPT) 9, Alkaline Phosphatase 63, Total Protein 5.3L, Albumin 2.9L, Corrected Calcium 8.8 03/22/23 05:35: White Blood Count 8.6, Red Blood Count 3.60L, Hemoglobin 10.9L, Hematocrit 34L, Mean Corpuscular Volume 94, Mean Corpuscular Hemoglobin 30, Mean Corpuscular Hemoglobin Concent 32, Red Cell Distribution Width 14.7H, Platelet Count 206, Mean Platelet Volume 10.7, Immature Granulocyte % (Auto) 1, Neutrophils (%) (Auto) 76H, Lymphocytes (%) (Auto) 9L, Monocytes (%) (Auto) 10, Eosinophils (%) (Auto) 5, Basophils (%) (Auto) 0, Neutrophils # (Auto) 6.5, Lymphocytes # (Auto) 0.7L, Monocytes # (Auto) 0.8, Eosinophils # (Auto) 0.5H, Basophils # (Auto) 0.0, Immature Granulocyte # (Auto) 0.0, Sodium Level 137, Potassium Level 4.2, Chloride Level 105, Carbon Dioxide Level 26, Anion Gap 6, Blood Urea Nitrogen 14, Creatinine 0.71, Estimat Glomerular Filtration Rate 88, BUN/Creatinine Ratio 20, Glucose Level 132H, Calcium Level 8.5, Total Bilirubin 1.0, Aspartate Amino Transf (AST/SGOT) 13, Alanine Aminotransferase (ALT/SGPT) 10, Alkaline Phosphatase 66, Total Protein 5.6L, Albumin 3.0L, Corrected Calcium 9.3 03/23/23 05:00: White Blood Count 7.6, Red Blood Count 3.78L, Hemoglobin 11.4L, Hematocrit 36, Mean Corpuscular Volume 94, Mean Corpuscular Hemoglobin 30, Mean Corpuscular Hemoglobin Concent 32, Red Cell Distribution Width 14.7H, Platelet Count 200, Mean Platelet Volume 10.9, Immature Granulocyte % (Auto) 1, Neutrophils (%) (Auto) 70, Lymphocytes (%) (Auto) 12, Monocytes (%) (Auto) 12, Eosinophils (%) (Auto) 5, Basophils (%) (Auto) 1, Neutrophils # (Auto) 5.3, Lymphocytes # (Auto) 0.9L, Monocytes # (Auto) 0.9, Eosinophils # (Auto) 0.4H, Basophils # (Auto) 0.0, Immature Granulocyte # (Auto) 0.0, Sodium Level 139, Potassium Level 4.1, Chloride Level 103, Carbon Dioxide Level 27, Anion Gap 9, Blood Urea Nitrogen 11, Creatinine 0.70, Estimat Glomerular Filtration Rate 89, BUN/Creatinine Ratio 16, Glucose Level 102, Calcium Level 8.5, Total Bilirubin 1.5H, Aspartate Amino Transf (AST/SGOT) 14, Alanine Aminotransferase (ALT/SGPT) 12, Alkaline Phosphat ase 62, Total Protein 5.7L, Albumin 3.1L, Corrected Calcium 9.2 03/24/23 05:20: White Blood Count 6.6, Red Blood Count 3.75L, Hemoglobin 11.3L, Hematocrit 35, Mean Corpuscular Volume 93, Mean Corpuscular Hemoglobin 30, Mean Corpuscular Hemoglobin Concent 32, Red Cell Distribution Width 14.6H, Platelet Count 230, Mean Platelet Volume 10.6, Immature Granulocyte % (Auto) 1, Neutrophils (%) (Auto) 59, Lymphocytes (%) (Auto) 20, Monocytes (%) (Auto) 15H, Eosinophils (%) (Auto) 5, Basophils (%) (Auto) 1, Neutrophils # (Auto) 3.9, Lymphocytes # (Auto) 1.3, Monocytes # (Auto) 1.0, Eosinophils # (Auto) 0.4H, Basophils # (Auto) 0.0, Immature Granulocyte # (Auto) 0.0, Sodium Level 140, Potassium Level 4.2, Chloride Level 103, Carbon Dioxide Level 29, Anion Gap 8, Blood Urea Nitrogen 12, Creatinine 0.78, Estimat Glomerular Filtration Rate 78, BUN/Creatinine Ratio 15, Glucose Level 95, Calcium Level 8.8, Corrected Calcium 9.4, Total Bilirubin 1.2H, Aspartate Amino Transf (AST/SGOT) 13, Alanine Aminotransferase (ALT/SGPT) 12, Alkaline Phosphatase 71, Total Protein 5.7L, Albumin 3.3 03/25/23 05:09: White Blood Count 8.1, Red Blood Count 3.73L, Hemoglobin 11.4L, Hematocrit 35, Mean Corpuscular Volume 93, Mean Corpuscular Hemoglobin 31, Mean Corpuscular Hemoglobin Concent 33, Red Cell Distribution Width 14.7H, Platelet Count 263, Mean Platelet Volume 10.6, Immature Granulocyte % (Auto) 1, Neutrophils (%) (Auto) 72, Lymphocytes (%) (Auto) 14, Monocytes (%) (Auto) 12, Eosinophils (%) (Auto) 1, Basophils (%) (Auto) 0, Neutrophils # (Auto) 5.8, Lymphocytes # (Auto) 1.1, Monocytes # (Auto) 1.0, Eosinophils # (Auto) 0.1, Basophils # (Auto) 0.0, Immature Granulocyte # (Auto) 0.0, Sodium Level 138, Potassium Level 4.3, Chloride Level 104, Carbon Dioxide Level 23, Anion Gap 11, Blood Urea Nitrogen 13, Creatinine 0.73, Estimat Glomerular Filtration Rate 85, BUN/Creatinine Ratio 18, Glucose Level 105, Calcium Level 8.5, Corrected Calcium 9.1, Total Bilirubin 0.7, Aspartate Amino Transf (AST/SGOT) 17, Alanine Aminotransferase (ALT/SGPT) 13, Alkaline Phosphatase 69, Total Protein 6.1L, Albumin 3.2 03/26/23 05:27: White Blood Count 7.8, Red Blood Count 3.84, Hemoglobin 11.8, Hematocrit 37, Mean Corpuscular Volume 96, Mean Corpuscular Hemoglobin 31, Mean Corpuscular Hemoglobin Concent 32, Red Cell Distribution Width 14.9H, Platelet Count 256, Mean Platelet Volume 10.7, Immature Granulocyte % (Auto) 1, Neutrophils (%) (Auto) 66, Lymphocytes (%) (Auto) 17, Monocytes (%) (Auto) 12, Eosinophils (%) (Auto) 4, Basophils (%) (Auto) 1, Neutrophils # (Auto) 5.1, Lymphocytes # (Auto) 1.3, Monocytes # (Auto) 0.9, Eosinophils # (Auto) 0.3, Basophils # (Auto) 0.1, Immature Granulocyte # (Auto) 0.1, Sodium Level 141, Potassium Level 4.2, Chloride Level 103, Carbon Dioxide Level 27, Anion Gap 11, Blood Urea Nitrogen 12, Creatinine 0.73, Estimat Glomerular Filtration Rate 85, BUN/Creatinine Ratio 16, Glucose Level 94, Calcium Level 8.7, Corrected Calcium 9.3, Total Bilirubin 0.8, Aspartate Amino Transf (AST/SGOT) 16, Alanine Aminotransferase (ALT/SGPT) 13, Alkaline Phosphatase 69, Total Protein 6.1L, Albumin 3.3 Microbiology 03/21/23 MRSA Screen - Final, Complete MRSA not isolated Pending Labs Microbiology Date/Time Source Procedure Growth Status 03/21/23 16:45 Nasal MRSA Screen - Final MRSA not isolated Complete Laboratory Tests 03/20/23 13:15: White Blood Count 8.2, Red Blood Count 3.73, Hemoglobin 11.5, Hematocrit 37, Mean Corpuscular Volume 100, Mean Corpuscular Hemoglobin 31, Mean Corpuscular Hemoglobin Concent 31, Red Cell Distribution Width 15.2, Platelet Count 205, Mean Platelet Volume 11.2, Immature Granulocyte % (Auto) 0, Neutrophils (%) (Auto) 75, Lymphocytes (%) (Auto) 12, Monocytes (%) (Auto) 11, Eosinophils (%) (Auto) 2, Basophils (%) (Auto) 0, Neutrophils # (Auto) 6.2, Lymphocytes # (Auto) 1.0, Monocytes # (Auto) 0.9, Eosinophils # (Auto) 0.1, Basophils # (Auto) 0.0, Immature Granulocyte # (Auto) 0.0, Sodium Level 138, Potassium Level 4.8, Chloride Level 104, Carbon Dioxide Level 25, Anion Gap 9, Blood Urea Nitrogen 11, Creatinine 0.75, Estimat Glomerular Filtration Rate 82, BUN/Creatinine Ratio 15, Glucose Level 96, Calcium Level 8.3, Total Bilirubin 1.2, Direct Bilirubin 0.4, Indirect Bilirubin 0.8, Aspartate Amino Transf (AST/SGOT) 20, Alanine Aminotransferase (ALT/SGPT) 12, Alkaline Phosphatase 68, Total Protein 6.1, Albumin 3.3 03/21/23 05:40: White Blood Count 7.2, Red Blood Count 3.48, Hemoglobin 10.4, Hematocrit 33, Mean Corpuscular Volume 95, Mean Corpuscular Hemoglobin 30, Mean Corpuscular Hemoglobin Concent 31, Red Cell Distribution Width 14.9, Platelet Count 175, Mean Platelet Volume 10.5, Immature Granulocyte % (Auto) 0, Neutrophils (%) (Auto) 66, Lymphocytes (%) (Auto) 17, Monocytes (%) (Auto) 11, Eosinophils (%) (Auto) 5, Basophils (%) (Auto) 0, Neutrophils # (Auto) 4.8, Lymphocytes # (Auto) 1.2, Monocytes # (Auto) 0.8, Eosinophils # (Auto) 0.4, Basophils # (Auto) 0.0, Immature Granulocyte # (Auto) 0.0, Sodium Level 138, Potassium Level 4.0, Chloride Level 106, Carbon Dioxide Level 26, Anion Gap 6, Blood Urea Nitrogen 10, Creatinine 0.71, Estimat Glomerular Filtration Rate 88, BUN/Creatinine Ratio 14, Glucose Level 101, Calcium Level 7.9, Total Bilirubin 1.4, Aspartate Amino Transf (AST/SGOT) 15, Alanine Aminotransferase (ALT/SGPT) 9, Alkaline Phosphatase 63, Total Protein 5.3, Albumin 2.9, Corrected Calcium 8.8 03/22/23 05:35: White Blood Count 8.6, Red Blood Count 3.60, Hemoglobin 10.9, Hematocrit 34, Mean Corpuscular Volume 94, Mean Corpuscular Hemoglobin 30, Mean Corpuscular Hemoglobin Concent 32, Red Cell Distribution Width 14.7, Platelet Count 206, Mean Platelet Volume 10.7, Immature Granulocyte % (Auto) 1, Neutrophils (%) (Auto) 76, Lymphocytes (%) (Auto) 9, Monocytes (%) (Auto) 10, Eosinophils (%) (Auto) 5, Basophils (%) (Auto) 0, Neutrophils # (Auto) 6.5, Lymphocytes # (Auto) 0.7, Monocytes # (Auto) 0.8, Eosinophils # (Auto) 0.5, Basophils # (Auto) 0.0, Immature Granulocyte # (Auto) 0.0, Sodium Level 137, Potassium Level 4.2, Chloride Level 105, Carbon Dioxide Level 26, Anion Gap 6, Blood Urea Nitrogen 14, Creatinine 0.71, Estimat Glomerular Filtration Rate 88, BUN/Creatinine Ratio 20, Glucose Level 132, Calcium Level 8.5, Total Bilirubin 1.0, Aspartate Amino Transf (AST/SGOT) 13, Alanine Aminotransferase (ALT/SGPT) 10, Alkaline Phosphatase 66, Total Protein 5.6, Albumin 3.0, Corrected Calcium 9.3 03/23/23 05:00: White Blood Count 7.6, Red Blood Count 3.78, Hemoglobin 11.4, Hematocrit 36, Mean Corpuscular Volume 94, Mean Corpuscular Hemoglobin 30, Mean Corpuscular Hemoglobin Concent 32, Red Cell Distribution Width 14.7, Platelet Count 200, Mean Platelet Volume 10.9, Immature Granulocyte % (Auto) 1, Neutrophils (%) (Auto) 70, Lymphocytes (%) (Auto) 12, Monocytes (%) (Auto) 12, Eosinophils (%) (Auto) 5, Basophils (%) (Auto) 1, Neutrophils # (Auto) 5.3, Lymphocytes # (Auto) 0.9, Monocytes # (Auto) 0.9, Eosinophils # (Auto) 0.4, Basophils # (Auto) 0.0, Immature Granulocyte # (Auto) 0.0, Sodium Level 139, Potassium Level 4.1, Chloride Level 103, Carbon Dioxide Level 27, Anion Gap 9, Blood Urea Nitrogen 11, Creatinine 0.70, Estimat Glomerular Filtration Rate 89, BUN/Creatinine Ratio 16, Glucose Level 102, Calcium Level 8.5, Total Bilirubin 1.5, Aspartate Amino Transf (AST/SGOT) 14, Alanine Aminotransferase (ALT/SGPT) 12, Alkaline Phosphatase 62, Total Protein 5.7, Albumin 3.1, Corrected Calcium 9.2 03/24/23 05:20: White Blood Count 6.6, Red Blood Count 3.75, Hemoglobin 11.3, Hematocrit 35, Mean Corpuscular Volume 93, Mean Corpuscular Hemoglobin 30, Mean Corpuscular Hemoglobin Concent 32, Red Cell Distribution Width 14.6, Platelet Count 230, Mean Platelet Volume 10.6, Immature Granulocyte % (Auto) 1, Neutrophils (%) (Auto) 59, Lymphocytes (%) (Auto) 20, Monocytes (%) (Auto) 15, Eosinophils (%) (Auto) 5, Basophils (%) (Auto) 1, Neutrophils # (Auto) 3.9, Lymphocytes # (Auto) 1.3, Monocytes # (Auto) 1.0, Eosinophils # (Auto) 0.4, Basophils # (Auto) 0.0, Immature Granulocyte # (Auto) 0.0, Sodium Level 140, Potassium Level 4.2, Chloride Level 103, Carbon Dioxide Level 29, Anion Gap 8, Blood Urea Nitrogen 1 2, Creatinine 0.78, Estimat Glomerular Filtration Rate 78, BUN/Creatinine Ratio 15, Glucose Level 95, Calcium Level 8.8, Corrected Calcium 9.4, Total Bilirubin 1.2, Aspartate Amino Transf (AST/SGOT) 13, Alanine Aminotransferase (ALT/SGPT) 12, Alkaline Phosphatase 71, Total Protein 5.7, Albumin 3.3 03/25/23 05:09: White Blood Count 8.1, Red Blood Count 3.73, Hemoglobin 11.4, Hematocrit 35, Mean Corpuscular Volume 93, Mean Corpuscular Hemoglobin 31, Mean Corpuscular Hemoglobin Concent 33, Red Cell Distribution Width 14.7, Platelet Count 263, Mean Platelet Volume 10.6, Immature Granulocyte % (Auto) 1, Neutrophils (%) (Auto) 72, Lymphocytes (%) (Auto) 14, Monocytes (%) (Auto) 12, Eosinophils (%) (Auto) 1, Basophils (%) (Auto) 0, Neutrophils # (Auto) 5.8, Lymphocytes # (Auto) 1.1, Monocytes # (Auto) 1.0, Eosinophils # (Auto) 0.1, Basophils # (Auto) 0.0, Immature Granulocyte # (Auto) 0.0, Sodium Level 138, Potassium Level 4.3, Chloride Level 104, Carbon Dioxide Level 23, Anion Gap 11, Blood Urea Nitrogen 13, Creatinine 0.73, Estimat Glomerular Filtration Rate 85, BUN/Creatinine Ratio 18, Glucose Level 105, Calcium Level 8.5, Corrected Calcium 9.1, Total Bilirubin 0.7, Aspartate Amino Transf (AST/SGOT) 17, Alanine Aminotransferase (ALT/SGPT) 13, Alkaline Phosphatase 69, Total Protein 6.1, Albumin 3.2 03/26/23 05:27: White Blood Count 7.8, Red Blood Count 3.84, Hemoglobin 11.8, Hematocrit 37, Mean Corpuscular Volume 96, Mean Corpuscular Hemoglobin 31, Mean Corpuscular Hemoglobin Concent 32, Red Cell Distribution Width 14.9, Platelet Count 256, Mean Platelet Volume 10.7, Immature Granulocyte % (Auto) 1, Neutrophils (%) (Auto) 66, Lymphocytes (%) (Auto) 17, Monocytes (%) (Auto) 12, Eosinophils (%) (Auto) 4, Basophils (%) (Auto) 1, Neutrophils # (Auto) 5.1, Lymphocytes # (Auto) 1.3, Monocytes # (Auto) 0.9, Eosinophils # (Auto) 0.3, Basophils # (Auto) 0.1, Immature Granulocyte # (Auto) 0.1, Sodium Level 141, Potassium Level 4.2, Chloride Level 103, Carbon Dioxide Level 27, Anion Gap 11, Blood Urea Nitrogen 12, Creatinine 0.73, Estimat Glomerular Filtration Rate 85, BUN/Creatinine Ratio 16, Glucose Level 94, Calcium Level 8.7, Corrected Calcium 9.3, Total Bilirubin 0.8, Aspartate Amino Transf (AST/SGOT) 16, Alanine Aminotransferase (ALT/SGPT) 13, Alkaline Phosphatase 69, Total Protein 6.1, Albumin 3.3 Discharge Home Medications: Active Scripts Active Lotrimin AF (Miconazole Nitrate) 2 % Powder 0 Gm TOP BID twice daily Stool Softener-Laxative Tablet (Sennosides/Docusate Sodium) 8.6 Mg-50 Mg Tablet 1 Ea PO BID Oxyir Tablet (Oxycodone HCl) 5 Mg Tab 5 Mg PO Q4HR PRN Vitamin B-12 (Cyanocobalamin (Vitamin B-12)) 500 Mcg Tablet 500 Mcg PO DAILY Tramadol HCl 50 Mg Tablet 50 Mg PO Q8H PRN Fiber Select Gummies Tab Chew (Inulin/Chromium Picolinate) 2 Gram-100 Mcg Tab.chew 1 Each PO DAILY Vitamin D3 (Cholecalciferol (Vitamin D3)) 25 Mcg (1000 Unit) Capsule 25 Mcg PO DAILY Ezetimibe 10 Mg Tablet 10 Mg PO DAILY Metoprolol Tartrate 25 Mg Tablet 25 Mg PO BID Xarelto (Rivaroxaban) 20 Mg Tablet 20 Mg PO DAILY Cetirizine HCl 10 Mg Tablet 10 Mg PO DAILY Neurontin (Gabapentin) 300 Mg Capsule 600 Mg PO BID PRN TAKES 2 (300MG) CAPS Furosemide 20 Mg Tablet 20 Mg PO DAILY Oxybutynin Chloride ER (Oxybutynin Chloride) 10 Mg Tab.er.24 10 Mg PO DAILY Paroxetine HCl 40 Mg Tablet 40 Mg PO DAILY Valsartan 160 Mg Tablet 160 Mg PO DAILY Atorvastatin Calcium 40 Mg Tablet 40 Mg PO DAILY Amlodipine Besylate 5 Mg Tablet 5 Mg PO DAILY Trazodone HCl 50 Mg Tablet 50 Mg PO HS Klor-Con M10 (Potassium Chloride) 10 Meq Tab.er.prt 10 Meq PO DAILY Omeprazole 20 Mg Capsule.dr 20 Mg PO HS Ambien (Zolpidem Tartrate) 10 Mg Tablet 10 Mg PO HS Terazosin HCl 5 Mg Capsule 5 Mg PO DAILY Instructions to patient/family Please see electronic discharge instructions given to patient. JAIR GONSALES DO Mar 26, 2023 06:05
[2023-03-26 06:26] LABS: BASOPHILS # (AUTO) 0.1 10^3/uL (0.0-0.1); BASOPHILS % (AUTO) 1 % (0-10); EOSINOPHILS # (AUTO) 0.3 10^3/uL (0.0-0.3); EOSINOPHILS % (AUTO) 4 % (0-10); HEMATOCRIT 37 % (35-52); HEMOGLOBIN 11.8 g/dL (11.5-16.0); LYMPHOCYTES # (AUTO) 1.3 10^3/uL (1.0-4.0); LYMPHOCYTES % (AUTO) 17 % (12-44); MEAN CORPUSCULAR HEMOGLOBIN 31 pg (25-34); MEAN CORPUSCULAR HGB CONC 32 g/dL (32-36); MEAN CORPUSCULAR VOLUME 96 fL (80-99); MEAN PLATELET VOLUME 10.7 fL (9.0-12.2); MONOCYTES # (AUTO) 0.9 10^3/uL (0.0-1.0); MONOCYTES % (AUTO) 12 % (0-12); NEUTROPHILS # (AUTO) 5.1 10^3/uL (1.8-7.8); NEUTROPHILS % (AUTO) 66 % (42-75); PLATELET COUNT 256 10^3/uL (130-400); WHITE BLOOD COUNT 7.8 10^3/uL (4.3-11.0)
[2023-03-26 06:50] LABS: ALBUMIN 3.3 GM/DL (3.2-4.5); BILIRUBIN,TOTAL 0.8 MG/DL (0.1-1.0); CALCIUM 8.7 MG/DL (8.5-10.1); CREATININE SERUM 0.73 MG/DL (0.60-1.30); POTASSIUM 4.2 MMOL/L (3.6-5.0); TOTAL PROTEIN 6.1 GM/DL (6.4-8.2)
[2023-03-26] MEDS: SENNOSIDES 8.6 MG TABLET PO SCH (08:01)
[2023-03-26] MEDS: SENNA W/DOCUSATE TABLET PO SCH (08:01)
[2023-03-26] MEDS: DOCUSATE SODIUM 100 MG CAPSULE PO SCH (08:01)
[2023-03-26 08:26] VITALS: BP 135/63
[2023-03-26] MEDS: meTOprolol TARTRATE (IR) 25 MG TABLET PO SCH (09:30)
[2023-03-26] MEDS: MUPIROCIN 2% OINTMENT 22 GM TUBE TOP SCH (09:30)
[2023-03-26] MEDS: MICONAZOLE 2% POWDER 90 GM TOP SCH (09:30)
--- NOTE | 2023-03-26 10:12 | Cardiology Progress Note ---
Subjective Date Seen by Provider: Mar 26, 2023 Time Seen by Provider: 10:11 Subjective/Events-last exam Patient was seen at bedside, sitting comfortably, feeling better Objective-Cardiology Exam Last Set of Vital Signs Vital Signs 03/23/23 03/26/23 03/26/23 21:16 08:26 10:08 Temp 36.3 Pulse 76 Resp 20 B/P (MAP) 135/63 (87) Pulse Ox 94 O2 Delivery Room Air O2 Flow Rate 0.00 FiO2 21 I&O Intake and Output 03/25/23 23:59 Intake Total 1282 ml Output Total 300 ml Balance 982 ml Intake Oral 1282 ml Output Urine Total 300 ml # Voids 8 # Bowel Movements 2 General: Alert, Oriented X3, Cooperative, No Acute Distress HEENT: Atraumatic, PERRLA, EOMI Lungs: Clear to Auscultation, Normal Air Movement Heart: Regular Rate, Normal S1, Normal S2 Abdomen: Normal Bowel Sounds, Soft Extremities: No Clubbing, No Cyanosis Neuro: Normal Speech Psych/Mental Status: Mental Status NL, Mood NL Results Lab Laboratory Tests 03/26/23 05:27 A/P-Cardiology Admission Diagnosis right wrist fracture CAD Atrial fibrillation Hypertension Assessment/Plan Right wrist fracture, postoperative day #[address] Anglin Recovering well Permanent atrial fibrillation, rate controlled, maintained on Xarelto Intolerant to multiple antiarrhythmic medications, including sotalol and amiodarone, patient tolerated Multaq, did not tolerate Tikosyn. She has seen by Dr. Ricci in the past but does not want to go to for due to the distance and difficulty to get to . Accepted atrial fibrillation as permanent, will continue with rate control. Continue to monitor Xarelto currently on hold, planning to resume Xarelto once deemed reasonable by the surgeon 2D echo was done in September 2021 with normal LV size, mild LVH, EF 50 to 55%, grade 1 diastolic dysfunction, left atrial dilatation 5.38 cm, mild mitral regur gitation, mild to moderate tricuspid regurgitation, PA pressure 40 to 45 mmHg. [id number] score of 4, yearly risk of stroke without oral anticoagulation is 4 percent. Maintained on Xarelto which is currently on hold Coronary artery disease, history of CABG 4 in 2003. Cardiac catheterization August 25, 2016 revealing severe three affiliated coronary artery disease with patent bypass grafts including SWEET to LAD, vein graft obtuse marginal, vein graft to the right coronary artery was small vessel disease distally. Had an abnormal stress test with cardiac catheterization on March 23, 2018 showing patent SWEET to LAD vein graft to the obtuse marginal and vein graft to the right coronary artery with small vessel disease distally, improvement in the left ventricular function, calcified right renal artery with moderate to severe stenosis. continue to monitor Underwent C with Dr. Bang on 01/16/22 showing stable CAD without intervention. Congestive heart failure, improved, last echocardiogram was done in September 2021 ejection fraction 50-55 percent, grade 1 diastolic dysfunction, left atrial dilatation measuring 5.38 cm, mild MR, PA 40-45 mmHg. History of gastritis, maintained on PPI Hypertension, patient reports episodes of hypotension recently. I will hold blood pressure medications at this time and continue to monitor. Intolerance to isosorbide secondary to headache. History of sinus bradycardia, intolerance to beta blockers and/or calcium channel blockers, currently asymptomatic. Peripheral arterial disease with renal artery stenosis which appeared to be moderate to moderately severe on the right renal artery during coronary angiogram on March 23, 2018. Continue to monitor at this time Hyperlipidemia, continue to monitor Small infrarenal abdominal aortic aneurysm, CT scan was done in March 2013 measuring the aorta at 3.9 cm, ultrasound of the abdominal aorta reported as focal ectasia in the infrarenal abdominal aorta. Abdominal aortic ultrasound done in January 2016 revealed no evidence of aneurysm. Repeat CT scan in December 2018 reported as distal abdominal aortic aneurysm measuring 3.9 cm AAA evaluated during 01/16/22 [facility] showing stable distal AAA 4cm with widely patent iliac and common femoral arteries. Mild bilateral carotid stenosis, last carotid ultrasound done in July 2022 Peripheral edema, reporting improvement. Continue to monitor Obstructive sleep apnea, currently not on CPAP, follows with [facility]. MOHSEN MORRIS MD Mar 26, 2023 10:12
== END 2023-03-26 10:41 ==
LOC: EDUNIT# 12:09 → ER 12:10 → 4TH 13:48
PROVIDERS: ADMIT Internal Medicine; ATTEND Internal Medicine
DX: S52.501A Unspecified fracture of the lower end of right radius, initial encounter for closed fracture (principal); W19.XXXA Unspecified fall, initial encounter; R53.1 Weakness; I25.10 Atherosclerotic heart disease of native coronary artery without angina pectoris; J44.9 Chronic obstructive pulmonary disease, unspecified; K29.50 Unspecified chronic gastritis without bleeding; I48.21 Permanent atrial fibrillation; I08.1 Rheumatic disorders of both mitral and tricuspid valves; Z95.1 Presence of aortocoronary bypass graft; I50.32 Chronic diastolic (congestive) heart failure; I11.0 Hypertensive heart disease with heart failure; I73.9 Peripheral vascular disease, unspecified; I70.1 Atherosclerosis of renal artery; E78.5 Hyperlipidemia, unspecified; I71.43 Infrarenal abdominal aortic aneurysm, without rupture; I65.23 Occlusion and stenosis of bilateral carotid arteries; R60.0 Localized edema; G47.33 Obstructive sleep apnea (adult) (pediatric); Z79.01 Long term (current) use of anticoagulants; Z87.891 Personal history of nicotine dependence; Z79.899 Other long term (current) drug therapy
CPT/HCPCS: 25608; 73130; 73630; 76000; 80048; 80053 ×6; 80076; 85025 ×7; 87081; 94760 ×2; 97110; 97116 ×2; 97162; 97167; 97535 ×3; 99284; C1713 ×6; G0378; 36415; 96361; 96375; 96376

== ENCOUNTER → 2023-05-20 | Outpatient (CLI) | payer MEDICARE ==
[~2023-05-20] MED LIST changes: +CHOL10007 PO; +CYAN500T8 PO; +INUL1TAB3 PO; +INUL2TAB PO; -INUL2TAB8 PO; +MICO90PO TOP; +OXC5T PO; +SENN-271 PO; +TRAM50TA3 PO
--- NOTE | 2023-05-20 14:53 | Diagnostic Imaging Report ---
INDICATION: Follow-up wrist fracture. Previous surgery. COMPARISON: 04/20/2023. FINDINGS: Two radiographic views of the right wrist were obtained and again show postsurgical changes of previous ORIF of the distal right radius. Orthopedic side plate and screws appear well seated and appropriately positioned. Distal radial fracture fragments remain in anatomic position. Ulnar styloid fracture is again noted. Radiocarpal joint space is maintained. No unexpected radiopaque foreign bodies are seen. IMPRESSION: 1. Redemonstration of postsurgical changes and nonacute fractures of the right wrist. Dictated by: Dictated on workstation # [id number]
== END ==
LOC: ORTHO 09:53
PROVIDERS: ATTEND Orthopaedic Surgery
DX: Z47.89 Encounter for other orthopedic aftercare (principal); E78.2 Mixed hyperlipidemia; E66.9 Obesity, unspecified
CPT/HCPCS: 73100

== ENCOUNTER → 2023-06-24 | Outpatient (CLI) | payer MEDICARE ==
[~2023-06-24] MED LIST changes: -INUL2TAB PO; +INUL2TAB8 PO
== END ==
LOC: ORTHO 10:38
PROVIDERS: ATTEND Orthopaedic Surgery
DX: Z47.89 Encounter for other orthopedic aftercare (principal)